=== PATIENT | female | born 1970 | race Caucasian/White ===

== ENCOUNTER 2019-01-01 17:38 | Emergency (ER) | payer MEDICAID, SELFPAY ==
[2019-01-01 17:40] VITALS: BP 152/86; PULSE 115; RESP 17; TEMP 39.1; O2SAT 99; BMI 26.7
--- NOTE | 2019-01-01 18:04 | EKG12_ITS ---
Test Reason : CELLULITIS Blood Pressure : / mmHG Vent. Rate : 105 BPM Atrial Rate : 105 BPM P-R Int : 122 ms QRS Dur : 082 ms QT Int : 320 ms P-R-T Axes : 059 039 024 degrees QTc Int : 422 ms Sinus tachycardia Otherwise normal ECG Confirmed by MUNIR ESCAMILLA, JAILYN ([id number]), art editor AUBREY FLEMING ([id number]) on 01/05/2019 11:14:56 AM Referred By: CJ Confirmed By:JAILYN AMARAL MD
[2019-01-01 18:05] VITALS: O2SAT 98
[2019-01-01] MEDS: Acetaminophen 325 MG Tablet 650 MG PO (18:17)
[2019-01-01] MEDS: 0.9% Normal Saline 1,000 ML 999 ML IV (18:41)
[2019-01-01 18:44] VITALS: BP 128/72; PULSE 103; RESP 14; O2SAT 99
[2019-01-01 18:45] VITALS: BP 128/74; PULSE 103; RESP 14; TEMP 39.9; O2SAT 98
--- NOTE | 2019-01-01 19:11 | ED.VISSUMM ---
- ER Visit Summary Date of Service: 01/01/19 Chief Complaint: Infection History of Present Illness: The patient is a 48 F with a history of IV drug abuse. She reports that she has been clean for years. She complains of right upper arm pain for the last 3 days. It started with a spider bite and she has increasing pain, redness. This is associated with fevers, but she denies any other associated symptoms like chest pain, shortness of breath, GI symptoms, or symptoms. Physical Examination: Febrile at 102 and heart rate 115. Heart tachycardic but regular. No murmurs. Lungs clear. Patient's right proximal and medial upper arm show erythema with proximal induration. The overlying skin is intact. I do not appreciate any definite fluctuance. She has track brower throughout her upper extremities. She is neurovascularly intact distally. Test Results: EKG showed sinus rhythm at a rate of 105. Laboratory studies and cultures are pending. Emergency Department Course and Treatment: I informed the patient that I am concerned she has an abscess. I advised that we will treat her with fluids, Tylenol. We will check some labs. We need to evaluate the arm infection, and we need to evaluate her for sepsis. I advised we will need cultures. I advised that she will likely need admission. We may also need to do imaging to see if there is an abscess or if this is just a cellulitis. Nursing was able to place a peripheral IV, but we were not able to obtain labs. Lab was contacted to draw blood. She received Tylenol and IV fluids. While awaiting blood draw, the patient ripped out her IV. She said she needed to leave. She wanted to go to her methadone clinic over the weekend, and did not want to be admitted despite our recommendations. Patient will sign out AGAINST MEDICAL ADVICE. She was started on clindamycin. Treatment Plan: As above Disposition: AMA Impression: Right arm abscess This note was generated with Med Access dictation software. It may contain incorrect words, spelling, and punctuation that were not noted in review of the chart prior to signing ED Disposition - Plan for ED Patient: Instructions: ABSCESS, Antiobiotic Treatment Only Prescriptions: Clindamycin [Cleocin] 300 mg PO 4X/DAY #80 cap Prescription Printed Referrals: Francisco Rose MD [Primary Care Provider] -
[2019-01-01 19:12] VITALS: BP 129/82; PULSE 102; RESP 14; O2SAT 98
--- NOTE | 2019-01-01 19:28 | ED.RN ---
PT STATED SHE WANTED TO LEAVE. THIS RN AND DR. CORONA EXPLAINED THE RISK OF LEAVING PRIOR TO PROPER TREATMENT. PT CONTINUES STATES SHE WANTS TO LEAVE. AMA PAPER WORK SIGNED MY DR. CORONA, THIS RN, AND THE PT. ESCORTED PT TO THE WAITING ROOM TO HER FAMILY WHO IS TAKING HER HOME.
[2019-01-01 19:32] VITALS: BP 135/87; PULSE 99; RESP 17; O2SAT 100
[2019-01-01 19:35] LABS: Absolute Lymphocyte Count 2.02 X10^3/uL (0.83-4.51); Absolute Neutrophil Count 13.8 X10^3/uL (2.0-7.7); Basophil# 0.12 X10^3/uL; Basophil% 0.7 % (0-1); Eosinophil# 0.04 X10^3/uL; Eosinophils% 0.2 % (0-5); Hemoglobin 12.7 g/dL (12.0-15.0); Lymphocyte # 2.02 X10^3/ul (4.0); Mean Corp Hgb Conc 33.4 g/dL (32-36); Mean Corpuscular Hgb 28.4 pg (27.0-32.0); Mean Platelet Vol. 9.3 fl (6.2-12.0); Monocyte# 0.83 X10^3/uL; Monocyte% 4.9 % (0-10); NRBC Flagged by Analyzer 0 % (0-5); Neutrophil # 13.77 X10^3/uL (2.7-7.7); Neutrophil % 81.5 % (47-70); Platelet Count 226 K/mm3 (150-450); RBC Distribution Width CV 12.5 % (11.6-14.6); RBC Distribution Width SD 38.3 fl (35.1-43.9); Red Blood Count 4.47 M/mm3 (4.2-5.4); White Blood Count 16.9 K/mm3 (4.4-11.0)
[2019-01-01 19:43] LABS: International Normalized Ratio 1.1; Prothrombin Time (Protime)PT. 13.5 SECONDS (11.7-14.9)
[2019-01-01 19:44] LABS: Partial Thromboplast Time 42.6 Seconds (24.1-36.2)
[2019-01-01 20:01] LABS: ALB/GLOB Ratio 0.9 RATIO (0.9-2.4); AST(SGOT) 18 U/L (15-37); Alanine Aminotransfer ALT/SGPT 28 U/L (13-56); Albumin, Serum 3.1 g/dL (3.2-5.0); Alkaline Phosphatase 201 U/L (45-117); Anion Gap 7 (5-15); BUN 12 mg/dL (7-18); Calcium,Total 8.1 mg/dL (8.5-10.1); Chloride 100 mmol/L (98-107); Creatinine, Serum 0.71 mg/dL (0.55-1.02); EST Glomerular Filtration Rate 94 mL/min (>60); Est Glom Filt Rate - Afr Amer 114 mL/min (>60); Estimated Creatinine Clearance 96.28 ml/min; Globulin 3.5 g/dL (2.2-4.2); Glucose 107 mg/dL (74-106); Potassium 3.9 mmol/L (3.5-5.1); Protein, Total 6.6 g/dL (6.4-8.2); Sodium Level 134 mmol/L (136-145)
== END 2019-01-01 19:33 | disposition left against medical advice (07) ==
PROVIDERS: Emergency Provider Emergency Medicine; Family Provider Family Medicine; PCP Family Medicine
DX: L02.413 Cutaneous abscess of right upper limb (principal); F17.200 Nicotine dependence, unspecified, uncomplicated; Z53.29 Procedure and treatment not carried out because of patient's decision for other reasons
CPT/HCPCS: 36415; 80053; 83605; 85025; 85610; 85730; 87040; 93005; 96360; 99285; J7030; A4216

== ENCOUNTER 2019-01-04 12:46 | Emergency (ER) | payer MEDICAID, SELFPAY ==
[2019-01-04 12:47] VITALS: BP 131/65; PULSE 97; RESP 16; TEMP 36.6; O2SAT 98; BMI 29.0
--- NOTE | 2019-01-04 13:40 | ED.RN ---
Medic student went to start patient's iv. Patient asked to speak to the nurse. This RN went to speak with patient. Patient informed me that she talked with her family and she wanted to go over to [place] to try to get into that hospital. Patient left AMA prior to treatment at 1332. This RN notified Dr. Ang.
--- NOTE | 2019-01-04 13:47 | ED.DCSUM_ITS ---
History of Present Illness Chief Complaint: Abscess Informant: Patient Current Severity: Moderate Maximum Severity: Moderate Narrative: Patient presents with right arm infection she was recently seen and she signed out AGAINST MEDICAL ADVICE. Before I got a chance to evaluate her or ask her question she told me she wanted to be noted on the chart that her infection was not from injecting herself with IV drugs. She thinks is from an axilla abscess. She denies chest pain palpitations fever or chills she denies any cough or congestion. She denies vision changes or headache. Past Medical History - Allergies and Home Meds Allergies/Adverse Reactions: Allergies Penicillins [PCN] Allergy (Verified 01/04/19 12:46) Unknown Primary Care Physician: Francisco Rose MD [Primary Care Provider] - Past Medical History: - - History of IV drug abuse, apparently she is on methadone in a methadone clinic Smoking Status: Current every day smoker Review of Systems General: Denies: Fever Eyes: Denies: Visual changes - bilaterally Cardiovascular: Denies: Chest pain, Palpitations, Heart racing Respiratory: Denies: Dyspnea, Cough Genitourinary: Denies: Dysuria Musculoskeletal: Reports: Extremity Pain Skin: Reports: Rash, Wounds Neurological: Denies: Weakness, Parasthesia Hematologic: Denies: Easy bruising, Easy bleeding Allergy: Denies: Uticaria, Swelling of the mouth Physical Exam Vital Signs/Narrative: Vital Signs Temp Pulse Resp BP Pulse Ox 01/04/19 12:47 97.8 F 97 16 131/65 H 98 General: - - She appears in some distress but she does not appear toxic Head: Normocephalic Eyes: Perrl, - - Corneas clear conjunctiva not pale ENT: Moist mucous membranes, No rhinorrhea Neck: Supple Cardiovascular: Regular rate, Regular rhythm, No murmurs, - - I auscultated for quite some time and all points of the auscultations and could not hear any murmur. Respiratory: No distress, CTA bilaterally Abdomen: Soft, Nontender Back: Nontender, Normal Inspection. Negative for: CVA tenderness Extremities: - - Right upper extremity shows a dorsal wrist wound which she does admit is secondary to skin popping. She has significant soft tissue swelling and cellulitis over the upper extremity, she has redness, its beefy red and she has a bit of calor. Examining her axilla she does have 2 lymph nodes, however these are not abscesses and there is no cellulitis rounding these lymph nodes. I do not palpate crepitus. Skin: - - As above Psychological: Normal affect Diagnostic/Tx/Re-eval - Medical Decision Making I ordered IV antibiotics blood cultures sed rate my worry was for systemic infection, endocarditis and significant upper extremity infection. She did tell me that she needs methadone and I need to figure out if this hospital does methadone. I had asked the nurse to figure that out, however the nurse told me that the patient had eloped. I did not have a chance to explain to her or to answer any of her questions I did emphasize when I first met her that this is very serious and she could lose her arm where she could become septic or she could have a heart infection. She did seem to understand that however she did not stick around for me to sign her out against AMA or try to explain to her further or convince her how serious her problem really is and how life- threatening or limb threatening her condition is. She eloped prior to me being able to reason with her. Disposition is elope ED Disposition - Plan for ED Patient: Diagnosis: Cellulitis, Eloped from emergency department Referrals: Francisco Rose MD [Primary Care Provider] -
== END 2019-01-04 13:32 | disposition left against medical advice (07) ==
LOC: ED 13:24
PROVIDERS: Emergency Provider Emergency Medicine; Family Provider Family Medicine; PCP Family Medicine
DX: L03.113 Cellulitis of right upper limb (principal); F17.200 Nicotine dependence, unspecified, uncomplicated; Z53.29 Procedure and treatment not carried out because of patient's decision for other reasons
CPT/HCPCS: 99282; J7050

== ENCOUNTER 2021-08-29 15:30 | Outpatient (RCR) | payer MEDICAID, SELFPAY ==
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
== END 2021-08-29 19:00 | disposition home or self-care (01) ==
LOC: OT 15:30
PROVIDERS: PCP Family Medicine; Referring Provider Family Medicine; Visit Provider Family Medicine
DX: T07.XXXD Unspecified multiple injuries, subsequent encounter (principal); X58.XXXD Exposure to other specified factors, subsequent encounter
CPT/HCPCS: 97110; 97116; 97162; 97165; 97530

== ENCOUNTER 2021-09-05 08:50 | Emergency (ER) | payer MEDICAID, SELFPAY ==
[2021-09-05 08:51] VITALS: BP 139/88; PULSE 87; RESP 14; TEMP 36.4; O2SAT 94; BMI 30.7
--- NOTE | 2021-09-05 09:14 | RAD_ITS ---
STUDY: X-RAY - RIGHT TIBIA AND FIBULA REASON FOR EXAM: Female, 51 years old. Pain TECHNIQUE: 4 view(s) of the tibia and fibula were obtained. COMPARISON: None. FINDINGS: The patient is status post intramedullary susanna fixation of the distal tibial fracture. Healed fracture of the mid fibula. Prior ORIF of the tibial plateau fractures. Soft tissue swelling. RAD/Tibia & Fibula 2 Views IMPRESSION: Status post intramedullary susanna fixation of the distal tibial fracture as well as prior ORIF of the tibial plateau fractures. Diffuse soft tissue swelling. Electronically Signed: Ousmane Austin MD at 10:45 EDT ,
--- NOTE | 2021-09-05 09:14 | VDLE_ITS ---
Reason For Study: pain RIGHT LEFT GSV is normal. GSV is normal. CFV is compressible, spontaneous, phasic, CFV is compressible, spontaneous, phasic, competent and demonstrates normal competent, and demonstrates normal augmentation. augmentation. FV is compressible, spontaneous, phasic, FV is compressible, spontaneous, phasic, competent and demonstrates normal competent and demonstrates normal augmentation. augmentation. POP V is compressible, spontaneous, phasic, POP V is compressible, spontaneous, phasic, competent and demonstrates normal competent and demonstrates normal augmentation. augmentation. T/P Trunk is compressible. T/P Trunk is compressible. PTV is compressible. PTV is compressible. RT PerV is compressible. LT PerV is compressible. Procedure This is a venous duplex using B-mode, color flow and spectral Doppler. Exam performed portable in ED. The exam was diagnostic. A preliminary report was called and/or faxed to Dr. Rivera. VL/Venous Duplex US - Alex Extrem Interpretation Summary No evidence for acute deep venous thrombosis bilateral lower extremities with p atent and compressible bilateral great saphenous veins. Ordering Physician: Raz Rivera Performed By: Chavo Vazquez RVT
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
[2021-09-05 09:53] LABS: Absolute Lymphocyte Count 5.49 X10^3/uL (0.83-4.51); Absolute Neutrophil Count 12.4 X10^3/uL (2.0-7.7); Basophil# 0.09 X10^3/uL; Basophil% 0.4 % (0-1); Eosinophil# 0.06 X10^3/uL; Eosinophils% 0.3 % (0-5); Hematocrit 37.1 % (37-47); Hemoglobin 11.5 g/dL (12.0-15.0); Lymphocyte # 5.49 X10^3/ul (0.83-4.51); Lymphocyte % 27.2 % (19-41); Mean Corpuscular Volume 80.7 fL (81-99); Mean Platelet Vol. 10.8 fl (6.2-12.0); Monocyte% 9.9 % (0-10); NRBC Flagged by Analyzer 0 % (0-5); Neutrophil % 61.4 % (47-70); POSITIVE DIFFERENTIAL YES; Platelet Count 582 K/mm3 (150-450); RBC Distribution Width CV 18.4 % (11.6-14.6); White Blood Count 20.2 K/mm3 (4.4-11.0)
[2021-09-05 10:07] LABS: Differential Indicated SCAN CRITERIA MET
[2021-09-05] MEDS: Ondansetron 4 MG/2 ML Vial IV (10:09)
[2021-09-05] MEDS: HYDROmorphone 1 MG/ML Syringe IV (10:10)
[2021-09-05 10:21] LABS: Differential Comment SCANNED
[2021-09-05 10:25] LABS: Anion Gap 5 (5-15); BUN 12 mg/dL (7-18); BUN/Creat Ratio 18.7 RATIO (10-20); Calcium,Total 8.8 mg/dL (8.5-10.1); Chloride 104 mmol/L (98-107); Creatinine, Serum 0.64 mg/dL (0.55-1.02); EST Glomerular Filtration Rate 104 mL/min (>60); Est Glom Filt Rate - Afr Amer 126 mL/min (>60); Estimated Creatinine Clearance 99.54 ml/min; Glucose 96 mg/dL (74-106); Potassium 3.5 mmol/L (3.5-5.1); Sodium Level 138 mmol/L (136-145)
[2021-09-05 12:01] LABS: Mucous, Urine 0 SEEN /hpf (<or=2+)
[2021-09-05 12:02] LABS: Color, Urine Yellow (Yellow); Glucose, Dipstick Normal (Normal); Ketone-Dipstick Negative (Negative); Leukocyte Esterase-Dipstick 500 /ul (Negative); Nitrite-Dipstick Negative (Negative); Occult Blood-Urine 10 /ul (Negative); Protein-Dipstick Negative (Negative); Specific Gravity, Urine 1.015 (1.002-1.030); Urine Bilirubin Dipstick Negative (Negative); Urine Clarity Sl. Cloudy (Clear); Urine Urobilinogen Normal (Normal)
[2021-09-05 12:09] LABS: Bacteria 1+ /hpf (None Seen); Red Blood Cells-Urine 0-5 SEEN /hpf (0-5); Squamous Epithelial Cells - UA 0-5 SEEN /hpf (5-10); White Blood Cells 25-50 SEEN /hpf (0-5); Yeast-Urine 1+ /hpf (None Seen)
[2021-09-05] MEDS: Smz/Tmp Ds Tablet 1 TABLET PO (12:48)
[2021-09-06 12:13] LABS: Pathologist Review Reviewed
== END 2021-09-05 12:52 | disposition home or self-care (01) ==
PROVIDERS: Emergency Provider Emergency Medicine; PCP Family Medicine; Visit Provider Emergency Medicine
DX: M79.604 Pain in right leg (principal); N39.0 Urinary tract infection, site not specified; F17.210 Nicotine dependence, cigarettes, uncomplicated
CPT/HCPCS: 73590; 80048; 81001; 85025; 86140; 87077; 87086; 87088; 87186; 93970; 96374; 96375; 99284; A4216; J2405

== ENCOUNTER → 2022-10-30 | Outpatient (CLI) | payer MEDICAID, SELFPAY ==
--- NOTE | 2022-10-30 15:16 | CT_ITS ---
STUDY: CT LEFT HIP WITHOUT CONTRAST REASON FOR EXAM: Female, 52 years old. Pain. RADIATION DOSAGE (If Supplied By Facility): CTDIvol = ( 23.82 ) mGy, DLP = ( 779.07 ) mGycm TECHNIQUE: Transaxial CT imaging of the femur was performed. Coronal and sagittal reconstruction and bone and soft tissue algorithm images were provided for interpretation. Metallic artifact from the acetabular plate and screw fixation with reconstruction. Individualized dose optimization techniques were used for this CT. COMPARISON: Pelvis and left hip images dated May 13, 2022. FINDINGS: Osteopenia. Mild muscle atrophy. Patient is status post resection of the proximal femur to the intertrochanteric region. 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 Plate and screw fixation/acetabular reconstruction with long cancellus screw placement from the left ilium to the left symphysis pubis. Anatomic alignment of the left acetabulum. Incidentally noted is mild arthrosis of the left sacroiliac joint. CT/Extremity Lower without Contra IMPRESSION: Osteopenia with left acetabular reconstruction. Resection of the proximal femur to the intertrochanteric region with superior migration of the femur in relation to the acetabulum. Arthrosis of the left sacroiliac joint. No acute abnormality or erosive changes. Electronically Signed: Asad Turner MD at 15:55 EDT ,
--- NOTE | 2022-10-30 15:34 | MRI_ITS ---
EXAM: MR LEFT LOWER EXTREMITY WITHOUT INTRAVENOUS CONTRAST, HIP CLINICAL INDICATION: LT HIP, OSTEOMECROSIS DUE TO PREV TRAUMA LEFT FEMUR TECHNIQUE: Multiplanar and multisequence MR images of the left hip without intravenous contrast. COMPARISON: No relevant prior studies available. FINDINGS: TENDONS: FLEXORS: Unremarkable. Intact. EXTENSORS/HAMSTRING: Unremarkable. Intact. ABDUCTORS: Unremarkable. Intact. ADDUCTORS: Unremarkable. Intact. ROTATORS: Unremarkable. Intact. MUSCLES: Unremarkable. Normal bulk and signal. FLUID: Right hip shows no significant joint effusion. No trochanteric bursitis. LABRUM: Not well seen on the left side. Imaging of the right hip joint including cartilage and labrum are unremarkable. CARTILAGE: Not well seen on the left. Imaging of the right hip joint including cartilage and labrum are unremarkable. BONES/JOINTS: Extensive susceptibility artifact about the left hip, limiting assessment of the adjacent tissues. Synovial herniation pit at the peripheral aspect of the right femoral neck. No sacral insufficiency fracture. No recent fractures. No osteonecrosis involving the right hip. No other bone marrow signal alterations. OTHER SOFT TISSUES: Unremarkable. LYMPH NODES: Right groin prominent lymph nodes could potentially reactive. These can be followed clinically. INTRAPERITONEAL SPACE: Bladder is incompletely distended and otherwise unremarkable. No free fluid seen in the pelvis. MRI/Lower Ext Joint Only (Routine) IMPRESSION: 1. Extensive susceptibility artifact about the left hip, limiting assessment of the adjacent tissues. 2. Synovial herniation pit at the peripheral aspect of the right femoral neck. 3. Right groin prominent lymph nodes could potentially reactive. These can be followed clinically. 4. No other significant internal derangement of the right hip. Electronically Signed: Nuno Stanley MD at 1:02 EDT ,
== END | disposition home or self-care (01) ==
PROVIDERS: PCP Family Medicine; Referring Provider Specialist; Visit Provider Specialist
DX: M87.252 Osteonecrosis due to previous trauma, left femur (principal)
CPT/HCPCS: 73700; 73721

== ENCOUNTER 2022-11-28 13:02 | Outpatient (RCR) | payer MEDICAID, SELFPAY ==
[2022-11-28 13:13] VITALS: BP 151/89; PULSE 83; RESP 16; TEMP 36.8; BMI 32.1
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
== END 2022-12-17 23:59 | disposition home or self-care (01) ==
LOC: WC 13:02
PROVIDERS: PCP Family Medicine; Referring Provider Specialist; Visit Provider Physician Assistant
DX: L97.812 Non-pressure chronic ulcer of other part of right lower leg with fat layer exposed (principal); Z79.899 Other long term (current) drug therapy; F17.210 Nicotine dependence, cigarettes, uncomplicated; Z87.81 Personal history of (healed) traumatic fracture
CPT/HCPCS: 11042; 87070; 87075; 87077; 87186; 87205; 99213; G0463

== ENCOUNTER 2024-04-25 15:01 | Emergency (ER) | payer MEDICAID, SELFPAY ==
[2024-04-25 15:03] VITALS: BP 155/66; PULSE 86; RESP 14; TEMP 37.1; O2SAT 100; BMI 34.8
--- NOTE | 2024-04-25 15:24 | RAD_ITS ---
PROCEDURE: FEMUR MIN 2 VIEWS REASON FOR EXAM: 54-year-old female, pain/wound, possible infection. TECHNIQUE: 4 view(s) of the left femur COMPARISON: None. FINDINGS: Prior surgical femoral head resection with plate and screw fixation of the left hip. Scattered surgical clips along the left lateral hip tissues. Large gaseous lucency overlying the surgical clips measuring approximately 15.1 cm in craniocaudal diameter. No acute osseous fracture. No suspicious bone lesion. Severe arthrosis of the left knee joint. Scattered surgical clips overlying the left knee. RAD/Femur Min 2 Views IMPRESSION: Large gaseous lucency along the left lateral hip, compatible with abscess. Amairani gical consultation is recommended. Reading Location: [id number]
--- NOTE | 2024-04-25 15:24 | RAD_ITS ---
PROCEDURE: TIBIA FIBULA 2 VIEWS REASON FOR EXAM: 54-year-old female, pain, concern for infection. Nonambulatory patient. TECHNIQUE: 3 view(s) of the right tibia and fibula COMPARISON: Prior right tibia/fibula radiographs 08/2021. FINDINGS: Interval susanna and screw fixation of the distal right femur and proximal tibia, and surgical hardware removal of the prior right tibial ORIF. There is minimal osseous bridging of the known distal tibial fracture since 08/2021. Large soft tissue mass overlying the chronic right distal tibial anterior fracture, measuring at least 9.5 cm with gaseous lucency along the cranial aspect. No new acute osseous fracture. Patchy and diffuse serpiginous sclerosis within the proximal and distal tibia, compatible with chronic bone infarction. Numerous surgical clips throughout the right upper medial and right lower lateral leg. RAD/Tibia & Fibula 2 Views IMPRESSION: Large soft tissue mass overlying the chronic right distal anterior tibial fract ure with gaseous lucency along the cranial aspect, compatible with developing infection/abscess. Surgical consultation jagruti beltran Reading Location: [id number]
[2024-04-25 15:32] VITALS: BP 155/66; PULSE 86; RESP 14; TEMP 37.1; O2SAT 100
[2024-04-25 15:41] LABS: Absolute Neutrophil Count 8.8 X10^3/uL (2.0-7.7); Basophil# 0.09 X10^3/uL; Basophil% 0.6 % (0-1); Eosinophil# 0.34 X10^3/uL; Eosinophils% 2.3 % (0-5); Hematocrit 31.4 % (37-47); Hemoglobin 9.3 g/dL (12.0-15.0); Lymphocyte % 27.9 % (19-41); Mean Corp Hgb Conc 29.6 g/dL (32-36); Mean Corpuscular Hgb 24.3 pg (27.0-32.0); Monocyte# 1.31 X10^3/uL; Monocyte% 8.9 % (0-10); NRBC Flagged by Analyzer 0.4 % (0-5); Neutrophil # 8.78 X10^3/uL (2.7-7.7); Neutrophil % 59.6 % (47-70); POSITIVE COUNT YES; RBC Distribution Width CV 17.7 % (11.6-14.6); RBC Distribution Width SD 52.3 fl (35.1-43.9); Red Blood Count 3.83 M/mm3 (4.2-5.4); White Blood Count 14.7 K/mm3 (4.4-11.0)
--- NOTE | 2024-04-25 15:43 | EDS_ITS ---
HPI History of Present Illness Chief Complaint: Wound Informant: patient and EMS Narrative Narrative: 54-year-old female had plastic surgery at [facility] 2 or 3 weeks ago with a skin graft on her right lower leg that was taken from her left thigh for a wound that would not heal. She is supposed to follow-up tomorrow on Friday, and she states she has no transportation which is the main reason that she decided to come here to this ER by EMS on Friday. She states that since she was discharged home from the hospital, she has not been able to bend her knee at all. She states she assumes they knew that when they sent her home, but she could bend it before she went to the hospital to have surgery. She was at home by herself, she states she has an autistic 22-year-old who helps her sometimes, and she has had no home nursing or home health care. However she has been having a hard time performing ADLs at home since she cannot get around in a wheelchair since she cannot bend her right knee. When asked if they offered her rehab she states no not that she knows of. She had a wound VAC on the wound of her left thigh which was open before she left the hospital, she is not sure if it was post to be that way or not, but the wound VAC stopped functioning correctly at least a week ago so she has basically left it off, and she has brought herself to no medical attention for any of this until today. Additionally since she cannot bend her knee and sit in her wheelchair she has been laying on checks a lot, and her right buttock has been hurting her and seeping. She denies any fevers, chills, systemic symptoms. She has a lot of numbness around her right knee and other areas of her right lower leg, she states that hurts some, but she does not have any numbness in her feet. She states her plastic surgeon was Dr. Mac. [facility] Home Medications ?Medication ?Instructions ?Recorded ?Last Taken ?Type gabapentin 600 mg tablet 600 mg PO TID 01/04/19 Unkno wn History methadone 10 mg/mL oral concentrate 90 mg PO DAILY Unknown History sertraline 100 mg tablet 150 mg PO DAILY 01/04/19 Unk nown History clonidine HCl 0.1 mg tablet 0.1 mg PO Q12H 05/13/22 Un known History famotidine 20 mg tablet 20 mg PO DAILY 05/13/22 Unkn own History levothyroxine 50 mcg tablet 50 mcg PO DAILY 05/13/22 U nknown History bupropion HCl 100 mg tablet 150 mg PO BID 11/28/22 Unk nown History clonazepam 0.5 mg tablet (Klonopin) 0.5 mg PO TID PRN anxiety 11/28/22 Unknown History levetiracetam PO BID 11/28/22 Unknown Hist ory mirtazapine 15 mg tablet (Remeron) 7.5 mg PO QHS 11/28 Unknown History promethazine 25 mg tablet 25 mg PO TID PRN nausea and 11/28/22 Unknown History vomiting sulfamethoxazole 800 1 tab PO Q12H 14 days #28 ta bs 11/28/22 Unknown Rx mg-trimethoprim 160 mg tablet (Bactrim DS) Allergy/AdvReac Type Severity Reaction Status Date / Time Penicillins (PCN) Allergy Unknown Verified 04/25/24 15:03 Surgical History (Updated 05/13/22 @ 15:[address] Nicolas Ramírez DO) History of hip surgery History of facial surgery Surgical History unable to obtain Social History household members: family Smoking Status: Current every day smoker tobacco type: cigarettes alcohol intake: never ROS ROS ED Constitutional Constitutional ED: Denies chills or fever(s) Eyes Eyes: Denies change in vision or diplopia ENT ENT ED: Denies rhinorrhea or sore throat Cardiovascular Cardiovascular: Denies chest pain or palpitations Respiratory/Chest Respiratory/Chest: Denies cough or dyspnea Gastrointestinal Gastrointestinal: Denies abdominal pain, diarrhea, nausea or vomiting Genitourinary Genitourinary ED: Denies dysuria or hematuria Musculoskeletal Musculoskeletal: Reports as per HPI, difficulty walking, extremity pain and other Details: Right buttock pain, no other back pain ; Denies neck pain Integumentary Reports wounds; Denies abscess Neurologic Neurologic: Reports paresthesias RLE (In the knee and lower leg but not distally in the foot); Denies headache(s) or weakness Psychiatric Psychiatric: Denies anxiety or suicidal thoughts EXAM Physical Exam Const Vital Signs: 04/25/24 15:03 04/25/24 15:32 04/25/24 16:46 Temperature 98.7 F 98.7 F Temperature Source Oral Oral Pulse Rate 86 86 84 Respiratory Rate 14 14 16 Blood Pressure 155/66 H 155/66 H Blood Pressure Mean 95 95 Pulse Ox 100 100 99 Oxygen Delivery Method Room Air Room Air 04/25/24 16:46 Temperature 98.4 F Temperature Source Oral Pulse Rate 84 Respiratory Rate 16 Blood Pressure 152/85 H Blood Pressure Mean 107 Pulse Ox 100 Oxygen Delivery Method Positive well nourished and well developed General Appearance ED: well developed and NAD HEENT Reports moist mucous membranes normocephalic and atraumatic Eyes PERRL and EOMs intact bilaterally Neck full ROM and supple Resp normal respiratory effort and clear to auscultation bilaterally Cardio regular rate, regular rhythm and no murmurs Rate: Negative for tachycardic GI non-tender and non-distended Auscultation: normoactive bowel sounds Palpation: soft Narrative: Perineum is without any necrosis or subcutaneous emphysema, but she has some superficial skin sloughing and erythema that is tender and moist throughout the right buttock and posterior thigh, it is less significant and less tender on the left posterior thigh. There is no abscess posteriorly. Back/Spine no CVA tenderness General Back: other FROM Extremity normal to inspection Extremity Narrative: Some mild tenderness around the erythema of the wound left proximal lateral thigh. Large open wound here, there are sutures intact surgically and many of them appear to have ruptured creating an open wound that is approximately 12 cm long. I see no necrotic tissue in it. On her right leg, she has a black large swollen graft/flap on her right morgan with some purulent discharge coming out around the medial proximal aspect of it. She states it does not really hurt to press on the graft but it is sort of insensate. There is only mild tenderness around it proximally and there is a lot of erythema that goes from the distal aspect of this all the way up past the knee. Anterior at the knee, there is swelling, chronically thickened tissue, and a deep cutaneous sulcus without discharge. She cannot move her knee although she is trying and flexing the quads. It is in full extension. She can feel light touch distally in her feet. The skin is thickened and not able to feel pulses but her cap refill is brisk 2- 3 seconds. General Extremety ED: Yes tenderness; Negative for edema or pulses abnormal General Extremity: Negative for edema or pulses abnormal Neuro oriented x3, CN's II-XII intact bilaterally and no sensory deficits noted Sensorium / Orientation: awake and alert Motor Exam: strength 5/5 throughout Skin no wounds Skin Narrative: Wounds of both lower extremities and erythema, blanching, no other rashes, see above MDM MDM MDM Narrative Medical decision making narrative: Patient appears to have cellulitis in her right posterior thigh and buttock, a possible infection of her flap, erythema that extends proximally, and a possible infection of her open dehisced left thigh donor site as well. I obtained labs, the only secretions that I can obviously get a culture of his of the right lower leg flap, so we sent a culture of that and gave her a dose of vancomycin. Labs are noted which include a leukocytosis, kidney function and electrolytes are normal, her blood sugar is 127 which is good. I obtained x-rays of the affected areas, and my interpretation is as follows: The left thigh 4 view series shows that she had acetabulum surgery and her femoral head appears to be surgically gone, creating a chronic nonworking joint, and there is a paucity of tissue laterally that radiology read has compatible with an abscess but the location of this lucency is consistent with the open wound that is open to the outside world, rather than an abscess. Right femur 4 views and right tibia-fibula 3 views show an intramedullary susanna that goes through the knee joint and is secured in the proximal tibia. Also there appears to be a chronic fracture of the tibia where the patient's flap is, and as the radiologist noted, the soft tissue mass with subcutaneous air is the flap. There is not air tracking in fascial planes to suggest necrotizing fasciitis. Awaiting physician from transfer center to accept the patient in transfer given the fact that she just had surgery and they know this patient's wounds to some degree. Discussed with orthopedics Dr. Aguilar, who advised that given the multispecialty nature of her case, she will probably need Ortho, plastics, medicine, and infectious disease to see her, he recommends sending to the emergency department so I spoke with Dr. Patel there who accepts the patient. She is stable to go by BLS ground. Lab Data Attestation: I reviewed the patient's lab results. Labs: Laboratory Results - last 24 hr 04/25/24 15:20 WBC 14.7 H RBC 3.83 L Hgb 9.3 L Hct 31.4 L MCV 82.0 MCH 24.3 L MCHC 29.6 L RDW Std Deviation 52.3 H RDW Coeff of Mckayla 17.7 H Plt Count 759 H* MPV 10.0 Immature Gran % (Auto) 0.700 Neut % (Auto) 59.6 Lymph % (Auto) 27.9 [place] % (Auto) 8.9 Eos % (Auto) 2.3 Baso % (Auto) 0.6 Absolute Neuts (auto) 8.8 H Absolute Lymphs (auto) 4.10 Nucleated RBC % 0.4 Differential Comment SCANNED Diff Path Review June foll Sodium 138 Potassium 4.0 Chloride 102 Carbon Dioxide 25.7 Anion Gap 11 BUN 9 Creatinine 0.78 Estim Creat Clear Calc 99.51 Est GFR (MDRD) Non-Af 92 BUN/Creatinine Ratio 11.9 Glucose 127 H Calcium 9.0 Radiography Diagnostic Testing: Clinical Impression(s) from Imaging Studies Femur X-Ray 04/25/24 15:24 IMPRESSION: Large gaseous lucency along the left lateral hip, compatible with abscess. Surgical consultation is recommended. Reading Location: [facility] Tibia/Fibula X-Ray 04/25/24 15:24 IMPRESSION: Large soft tissue mass overlying the chronic right distal anterior tibial fracture with gaseous lucency along the cranial aspect, compatible with developing infection/abscess. Surgical consultation recommended. Reading Location: [facility] Femur X-Ray 04/25/24 15:51 IMPRESSION: No obvious soft tissue lesion. 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 Prescriptions: No Action levothyroxine 50 mcg tablet 50 mcg PO DAILY clonidine HCl 0.1 mg tablet 0.1 mg PO Q12H famotidine 20 mg tablet 20 mg PO DAILY gabapentin 600 MG tablet 600 mg PO TID Patient Comments: PT TAKES 1-3X DAILY sertraline 100 MG tablet 150 mg PO DAILY methadone 10 MG/ML concentrate 90 mg PO DAILY bupropion HCl 100 mg tablet 150 mg PO BID levetiracetam [Keppra] PO BID promethazine 25 mg tablet 25 mg PO TID PRN (Reason: nausea and vomiting) clonazepam [Klonopin] 0.5 mg tablet 0.5 mg PO TID PRN (Reason: anxiety) mirtazapine [Remeron] 15 mg tablet 7.5 mg PO QHS sulfamethoxazole-trimethoprim [Bactrim DS] 800-160 mg tablet 1 tab PO Q12H 14 Days Qty: 28 0RF Primary Care Provider: Francisco Rose Referrals: Francisco Rose MD [Primary Care Provider] - Print Language: Kyrgyz Disposition Disposition: Acute Care Hospital Discharge Location: [facility]
--- NOTE | 2024-04-25 15:51 | RAD_ITS ---
PROCEDURE: FEMUR MIN 2 VIEWS REASON FOR EXAM: 54-year-old female, leg wounds. TECHNIQUE: 4 view(s) of the right femur COMPARISON: Right tibia/fibula radiographs 08/2021. FINDINGS: Interval susanna and screw fixation of the right femur, extending into the proximal tibia. No obvious acute fracture. No suspicious bone lesion. Normal alignment at the hip. Surgical fixation of the right knee joint with expected sclerosis and demineralization. No obvious soft tissue lesion. RAD/Femur Min 2 Views IMPRESSION: No obvious soft tissue lesion. Reading Location: [id number]
[2024-04-25 15:58] LABS: Differential Indicated SCAN CRITERIA MET; Platelet Count 759 K/mm3 (150-450)
[2024-04-25 16:03] LABS: Anion Gap 11 (5-15); BUN 9 mg/dL (4-19); BUN/Creat Ratio 11.9 RATIO (10-20); Carbon Dioxide 25.7 mmol/L (21.0-32.0); Chloride 102 mmol/L (98-108); Creatinine, Serum 0.78 mg/dL (0.70-1.20); EST Glomerular Filtration Rate 92 (>60); Estimated Creatinine Clearance 99.51 ml/min (50-250); Glucose 127 mg/dL (70-99); Sodium Level 138 mmol/L (133-145)
[2024-04-25 16:40] LABS: Differential Comment SCANNED; Pathologist Review May foll
[2024-04-25 16:46] VITALS: BP 152/85; PULSE 84; RESP 16; TEMP 36.9; O2SAT 100; O2SAT 99
[2024-04-25] MEDS: Vancomycin HCl 1,500 MG in 0.9% Normal Saline (500mL Bag) 500 ML 250 MG IV (16:48)
[2024-04-25 18:00] VITALS: BP 152/85; PULSE 69; RESP 17; TEMP 36.7; O2SAT 98
--- NOTE | 2024-04-25 18:41 | ED.RN ---
attempt to call report left on hold for 15 minutes. will attempt to call again
--- NOTE | 2024-04-25 20:12 | ED.RN ---
attempt to call charge nurse again. no answer. will try again
== END 2024-04-25 20:19 | disposition short-term general hospital (02) ==
PROVIDERS: Emergency Provider Emergency Medicine; PCP Family Medicine; Visit Provider Emergency Medicine
DX: T81.49XA Infection following a procedure, other surgical site, initial encounter (principal); L03.115 Cellulitis of right lower limb; F17.210 Nicotine dependence, cigarettes, uncomplicated; X58.XXXA Exposure to other specified factors, initial encounter
CPT/HCPCS: 73552; 73590; 80048; 85025; 87070; 87077; 87186; 87205; 96365; 96366; 99285; A4216

== ENCOUNTER 2024-08-08 20:08 | Inpatient (IN) | payer MEDICAID, SELFPAY ==
[2024-08-08] VITALS (12 sets, daily range): BP systolic 157–172; BP diastolic 79–96; PULSE 79–94; RESP 11–23; TEMP 36.7–37; O2SAT 92–100; BMI 29.7
--- NOTE | 2024-08-08 20:36 | EKG12_ITS ---
Test Reason : GEN ILL Blood Pressure : */* mmHG Vent. Rate : 87 BPM Atrial Rate : 87 BPM P-R Int : 144 ms QRS Dur : 86 ms QT Int : 392 ms P-R-T Axes : 63 47 48 degrees QTcB Int : 471 ms Normal sinus rhythm Normal ECG Confirmed by MUNIR ESCAMILLA, JAILYN ([id number]), features editor EDISON SHOEMAKER ([id number]) on 08/10/2024 6:47:05 AM Referred By: Confirmed By: JAILYN AMARAL MD
--- NOTE | 2024-08-08 20:37 | EX.ED.DYSGE1 ---
HPI History of Present Illness Chief Complaint: General Illness Informant: EMS Narrative Narrative: Brought in by EMS from home. Apparently report of the call at the home for lift assist possibly by an aunt per nursing. She lives with a 22-year-old autistic son who helps her. She had a previous right AKA, apparently had a skin graft to her left upper leg few months back. They reported they went to the home she was found in her own feces and urine. She was confused trying to turn off the TV with [employer]'s application. Patient denies any pain denies any cough. She knew her name place and reported the year was 2025. Blood glucose 126 per EMS. Poor historian could not tell me how long she was in bed. PFSH PFS Home Medications ?Medication ?Instructions ?Recorded ?Last Taken ?Type gabapentin 600 mg tablet 600 mg PO TID 01/04/19 Unknown History methadone 10 mg/mL oral concentrate 90 mg PO DAILY 01/04/19 Unknown History sertraline 100 mg tablet 150 mg PO DAILY 01/04/19 Unknown History clonidine HCl 0.1 mg tablet 0.1 mg PO Q12H bp 05/13/22 Unknown History famotidine 20 mg tablet 20 mg PO DAILY gerd 05/13/22 Unknown History levothyroxine 50 mcg tablet 50 mcg PO DAILY 05/13/22 Unknown History bupropion HCl 100 mg tablet 150 mg PO BID 11/28/22 Unknown History clonazepam 0.5 mg tablet (Klonopin) 0.5 mg PO TID PRN anxiety 11/28/22 Unknown History levetiracetam PO BID 11/28/22 Unknown History mirtazapine 15 mg tablet (Remeron) 7.5 mg PO QHS 11/28/22 Unknown History promethazine 25 mg tablet 25 mg PO TID PRN nausea and 11/28/22 Unknown History vomiting sulfamethoxazole 800 1 tab PO Q12H 14 days #28 tabs 11/28/22 Unknown Rx mg-trimethoprim 160 mg tablet (Bactrim DS) Allergy/AdvReac Type Severity Reaction Status Date / Time Penicillins (PCN) Allergy Unknown Verified 08/08/24 20:09 Surgical History History of hip surgery History of facial surgery Social History household members: family Smoking Status: Current every day smoker tobacco type: cigarettes alcohol intake: never ROS ROS ED Review of Systems ROS Unobtainable: due to mental status Constitutional Constitutional ED: Denies fever(s) Cardiovascular Cardiovascular: Denies chest pain Respiratory/Chest Respiratory/Chest: Denies cough Gastrointestinal Gastrointestinal: Denies diarrhea or vomiting Neurologic Neurologic: Reports weakness EXAM Physical Exam Const Vital Signs: 08/08/24 20:08 08/08/24 20:09 08/08/24 21:12 Temperature 98.6 F Temperature Source Temporal Pulse Rate 94 Respiratory Rate 18 Blood Pressure 157/88 H 166/86 H Blood Pressure Mean 111 112 Pulse Ox 99 Oxygen Delivery Method Room Air Room Air 08/08/24 21:15 08/08/24 21:22 08/08/24 21:30 Temperature 98.4 F Temperature Source Oral Pulse Rate 90 87 94 Respiratory Rate 18 21 H 23 H Blood Pressure 166/79 H Blood Pressure Mean 108 Pulse Ox 97 93 92 Oxygen Delivery Method Room Air 08/08/24 21:35 08/08/24 21:45 08/08/24 21:46 Temperature Temperature Source Pulse Rate 82 90 Respiratory Rate 23 H 12 Blood Pressure 166/96 H 172/93 H Blood Pressure Mean 116 117 Pulse Ox 97 100 Oxygen Delivery Method 08/08/24 22:00 08/08/24 22:00 08/08/24 22:15 Temperature 98.1 F Temperature Source Oral Pulse Rate 79 83 81 Respiratory Rate 17 14 11 L Blood Pressure 172/93 H Blood Pressure Mean 119 Pulse Ox 97 99 95 Oxygen Delivery Method Room Air 08/08/24 22:26 08/08/24 23:00 Temperature 98.3 F 98.1 F Temperature Source Oral Pulse Rate 80 80 Respiratory Rate 14 18 Blood Pressure 166/87 H 164/90 H Blood Pressure Mean 113 114 Pulse Ox 100 99 Oxygen Delivery Method Positive unkempt Constitutional Narrative: Urine odor. General Appearance ED: unkempt HEENT HEENT Narrative: Mild dry mucosal membranes. normocephalic and atraumatic Eyes General Eye ED: Yes normal appearance of both eyes Neck full ROM Resp normal respiratory effort and normal air movement Cardio regular rate and regular rhythm GI soft to palpation Extremity Extremity Narrative: Right leg: AKA stump with incisions with scabbing. No redness no drainage. Left lower leg: Previous skin that left upper thigh superficial skin wound anterior thigh with pink color. No exudative drainage. Neuro Neuro Narrative: Alert to person and place reported years 2025. Psych Appearance: unkempt Skin Skin Narrative: See above MDM MDM MDM Narrative Medical decision making narrative: Interventions / MDM: Differential diagnosis: UTI, encephalopathy, transaminitis, leukocytosis. Rhabdomyolysis Diagnosis considered but do not suspect: Pneumonia however chest x-ray negative. My EKG interpretation: Sinus rate of 87, no ST changes. T wave versions in V1 V2. QTc 471. New changes compared to EKG 2019. Imaging independently reviewed and interpreted by myself: 1 view chest x-ray: No acute process. CT brain: No acute process. CT abdomen pelvis IV contrast: Pending External documents reviewed: N/A Test considered but not ordered:N/A ED course:. Altered smell of urine. Afebrile heart rate 90s respirate 18. Blood pressure 157/88. She appears altered. Will start with sepsis labs including CPK IV fluids ordered. Labs white count 17 hemoglobin 13.5. Creatinine 0.72. Lactic acid 1.2. Slight transaminitis with AST and ALT at 56 and 43 respectively. Normal bilirubin. Urine had 25 leukocytes with 1+ bacteria. Urine culture sent. With her leukocytosis IV Rocephin was ordered. Alcohol negative. Toxicology presumptive methadone. Phenocyclidine and benzodiazepine. With patient slightly more altered not baseline and I discussed with hospitalist Dr. Parra for admission. With patient being poor historian, he would like a CT abdomen pelvis IV contrast ordered. Re-evaluation: stable Disposition discussed with patient/family/significant other: Patient Case discussed with consulting clinician: Hospitalist CPK slightly elevated. This note was generated with [employer] dictation software. It may contain incorrect words, spelling, and punctuation that were not noted in checking the note before signing. Lab Data Attestation: I reviewed the patient's lab results. Labs: Laboratory Results - last 24 hr 08/08/24 08/08/24 20:38 21:41 WBC 17.0 H RBC 5.44 H Hgb 13.5 Hct 42.4 MCV 77.9 L MCH 24.8 L MCHC 31.8 L RDW Std Deviation 62.5 H RDW Coeff of Mckayla 23.1 H Plt Count 502 H MPV 11.6 Immature Gran % (Auto) 0.700 Neut % (Auto) 71.1 H Lymph % (Auto) 21.8 [place] % (Auto) 5.8 Eos % (Auto) 0.1 Baso % (Auto) 0.5 Absolute Neuts (auto) 12.1 H Absolute Lymphs (auto) 3.72 Nucleated RBC % 0 Differential Comment SCANNED Platelet Estimate MOD INC Polychromasia 1+ Hypochromasia 1+ Anisocytosis 1+ PT 13.9 INR 1.1 APTT 31.1 Sodium 139 Potassium 4.1 Chloride 103 Carbon Dioxide 21.5 Anion Gap 15 BUN 11 Creatinine 0.72 Estim Creat Clear Calc 89.29 Est GFR (MDRD) Non-Af 101 BUN/Creatinine Ratio 14.8 Glucose 115 H Lactic Acid 1.2 Calcium 9.9 Total Bilirubin 0.63 AST 56 H ALT 43 H Alkaline Phosphatase 174 H Total Creatine Kinase 226 H Total Protein 8.2 Albumin 4.3 Globulin 3.9 Albumin/Globulin Ratio 1.1 Urine Color Yellow Urine Clarity Sl. Cloudy Urine pH 6.0 Ur Specific [place] 1.025 Urine Protein 30 H Urine Glucose (UA) Normal Urine Ketones 15 H Urine Occult Blood 10 H Urine Nitrite Negative Urine Bilirubin 1 H Urine Urobilinogen 1 H Ur Leukocyte Esterase 25 H Urine RBC 0-5 SEEN Urine WBC 0-5 SEEN Ur Squamous Epith Cells 0-5 SEEN Amorphous Sediment 3+ Urine Bacteria 1+ Urine Mucus 0 SEEN Urine Opiates Screen NEGATIVE U Buprenorphine Qual NEGATIVE Ur Oxycodone Screen NEGATIVE Urine Methadone Screen PRESUMPTIVE POSITIVE Urine Fentanyl Screen NEGATIVE Ur Barbiturates Screen NEGATIVE Ur Phencyclidine Scrn PRESUMPTIVE POSITIVE Ur Amphetamines Screen NEGATIVE U Benzodiazepines Scrn PRESUMPTIVE POSITIVE Urine Cocaine Screen NEGATIVE U Cannabinoids Screen NEGATIVE Ethyl Alcohol < 10.1 Radiography Diagnostic Testing: Clinical Impression(s) from Imaging Studies Brain CT 08/08/24 20:41 IMPRESSION: No acute intracranial process. Reading Location: [facility] Chest X-Ray 08/08/24 21:43 IMPRESSION: No focal consolidations. Reading Location: [facility] Abdomen/Pelvis CT 08/08/24 22:34 IMPRESSION: Mild thickening of the colonic wall may reflect colitis. Moderate stool burden which may reflect constipation. No bowel obstruction. Vascular congestion within the pelvis may reflect pelvic congestion syndrome. Postsurgical changes of the left hip. Reading Location: [id number] Discharge Plan Dx/Rx/DC Orders Clinical Impression: UTI (urinary tract infection), Leukocytosis, Transaminitis, Elevated CPK, Encephalopathy Disposition Disposition: Acute Care Hospital [facility] Discharge Date/Time: 08/09/24 00:03
--- NOTE | 2024-08-08 20:41 | CT_ITS ---
PROCEDURE: BRAIN/HEAD WITHOUT CONTRAST 08/08/2024 REASON FOR EXAM: ALTERED MENTAL STATUS TECHNIQUE: BRAIN/HEAD WITHOUT CONTRAST Coronal and Sagittal reconstruction series were provided. One or more dose reduction techniques were used (e.g., Automated exposure control, adjustment of the mA and/or kV according to patient size, use of iterative reconstruction technique. RADIATION DOSE SUMMARY: DLP: 813 mGycm COMPARISON: None FINDINGS: There is no acute infarct, intracranial hemorrhage, or mass effect. There is no hydrocephalus or significant midline shift. There is mild chronic microvascular ischemic changes. Mild parenchymal volume loss. No acute, depressed calvarial fractures. No large scalp hematomas. Multiple facial bone fixation plates are noted. CT/Brain/Head without Contrast IMPRESSION: No acute intracranial process. Reading Location: [id number]
--- OUTSIDE RECORDS SUMMARY | 2024-08-08 20:49 | XMS RPT_ITS | CCD ---
Author Organization [facility] Care Team Providers Care Endoscopy Technician Name Role Phone Unavailable Primary Care Provider UnavailBijan Figueroa Primary Care Provider PROVIDER, UNKNOWN Admitting Unavailable PROVIDER, UNKNOWN Attending Unavailable ADALBERTO MCQUEEN Primary Care Unavailable PROVIDER, UNKNOWN Admitting Unavailable PROVIDER, UNKNOWN Attending Unavailable RENE LUNDBERG Referring Unavailable ADALBERTO MCQUEEN Primary Care Unavailable Bijan Elmore Primary Care Provider Unavailable Primary Care Provider UnavailBijan Figueroa MD Primary Care Provider Dr. Francisco Elmore Primary Care Provider Dr. Andre Sinclair Attending Provider Bijan Elmore MD Primary Care Provider Bijan Elmore Primary Care Provider Bijan Elmore MD Primary Care Provider JOSE, ELSIE R Attending Unavailable PROVIDER, UNKNOWN Referring Unavailable Bijan Elmore Primary Care Unavailable Ga Rodrigez Attending Unavailable PROVIDER, UNKNOWN Referring Unavailable Bijan Elmore Primary Care Unavailable Jyoti Ni Attending Unavailable PROVIDER, UNKNOWN Referring Unavailable Bijan Elmore Primary Care Unavailable PROVIDER, UNKNOWN Referring Unavailable Bijan Elmore Primary Care Unavailable Shelby Marti Attending Unavailable PROVIDER, UNKNOWN Referring Unavailable Bijan Elmore Primary Care Unavailable Adalberto Mcqueen Attending Unavailable Adalberto Mcqueen Attending Unavailable PROVIDER, UNKNOWN Referring Unavailable Bijan Elmore Primary Care Unavailable PROVIDER, UNKNOWN Referring Unavailable Bijan Elmore Primary Care Unavailable Dwayne Hameed Attending Unavailable CASS GUZMAN Attending Unavailable Bijan Elmore Referring Unavailable Kontak, Bijan Primary Care Unavailable Kontak, Bijan Primary Care Unavailable Jose, Elsie Attending Unavailable Kontak, Bijan Referring Unavailable Kontak, Bijan Primary Care Unavailable CASS GUZMAN Attending Unavailable Kontak, Bijan Referring Unavailable JEANIEFRANCISCO Attending Unavailable Kontak, Bijan Referring Unavailable Kontak, Bijan Primary Care Unavailable CASSY LANGLEY Attending Unavailable Kontak, Bijan Referring Unavailable Kontak, Bijan Primary Care Unavailable Jose, Elsie Attending Unavailable Kontak, Bijan Primary Care Unavailable Kontak, Bijan Referring Unavailable RICHARDSONTUNMACK Attending Unavailable KONTAK, FRANCISCO R Referring Unavailable KONTAK, FRANCISCO R Primary Care Unavailable MACK NEW Attending Unavailable KONTAK, FRANCISCO R Referring Unavailable KONTAK, FRANCISCO R Primary Care Unavailable Bijan Elmore MD Primary Care Provider [phone] JARVIS ALMONTE Attending Unavailable CRISTIANEK, BIJAN Primary Care Unavailable CASS GUZMAN Attending Unavailable KERLINETAK, BIJAN Primary Care Unavailable FRANCISCO WARE Attending Unavailable PACHECO BOOTHE Attending Unavailable CASS GUZMAN Attending Unavailable DAMIAN MOYA Referring Unavailable KONTAK, BIJAN Primary Care Unavailable PACHECO BOOTHE Attending Unavailable KERLINETAK, BIJAN Primary Care Unavailable JARVIS ALMONTE Attending Unavailable JEANIE, FRANCISCO Referring Unavailable Kontak, Bijan R Primary Care Provider [phone] Joselo MONTANEZ, Alicia Unavailable Unavailable Dr. Francisco Elmore Primary Care Provider HARMAN Munoz Attending Provider HARMAN Munoz Other Provider Dr. Abhi Quan Referring Provider Bijna Elmore MD Primary Care Provider [phone] Unavailable Primary Care Provider Unavailabl e Generic Provider , No Assigned Pcp Primary Car e Provider Unavailable Generic Provider , No Assigned Pcp Primary Car e Provider Unavailable CATARINA, BIJAN R Referring Unavailable KERLINETAZbigniew, BIJAN R Primary Care Unavailable CRUZ GOODMAN Attending Unavailable CRUZ GOODMAN Referring Unavailable CRUZ GOODMAN Referring Unavailable SONTICH, CRUZ Coy Referring Unavailable GENERIC PROVIDER, NO ASSIGNED PCP Primary Care Unavailable SONTICH, CRUZ K Referring Unavailable GENERIC PROVIDER, NO ASSIGNED PCP Primary Care Unavailable SONTICH, CRUZ K Referring Unavailable GENERIC PROVIDER, NO ASSIGNED PCP Primary Care Unavailable Catarina ESCAMILLA, Bijan Darnell Primary Care Provider [phone] Van ENGINE WATCHMAN.HAND PLUG SHAPER, Cheryl Unavailable TALBOO-LISSA PA~[id number], TALBOO-LISSA DI SUMA Attending Unavailable TALBOO-LISSA PA~[id number], TALBOO-LISSA DI SUMA Admitting Unavailable BIJAN ELMORE Primary Care Unavailable Catarina ESCAMILLA, Bijan Darnell Primary Care Provider Catarina ESCAMILLA, Dr. Singh Primary Care Provider Carolyn ESCAMILLA, Dr. Perla Emergency Provider CRUZ GOODMAN Attending Unavailable GENERIC PROVIDER, NO ASSIGNED PCP Primary Care Unavailable CRUZ GOODMAN Referring Unavailable GENERIC PROVIDER, NO ASSIGNED PCP Primary Care Unavailable CRUZ GOODMAN Admitting Unavailable CRUZ GOODMAN Attending Unavailable BIJAN ELMORE Primary Care Unavailable HERBER ABERNATHY Consulting Unavailable CRUZ GOODMAN Attending Unavailable GENERIC PROVIDER, NO ASSIGNED PCP Primary Care Unavailable GENERIC PROVIDER, NO ASSIGNED PCP Primary Care Unavailable GENERIC PROVIDER, NO ASSIGNED PCP Primary Care Unavailable CRUZ GOODMAN Referring Unavailable BIJAN ELMORE Primary Care Unavailable CRUZ GOODMAN Admitting Unavailable CRUZ GOODMAN Attending Unavailable BIJAN ELMORE Primary Care Unavailable CRUZ GOODMAN Admitting Unavailable SONCRUZ RUEDA Attending Unavailable CRUZ GOODMAN Referring Unavailable BIJAN ELMORE Primary Care Unavailable AL LIANET, NIDAL Consulting Unavailable FILIPPO MARK Attending Unavailable BIJAN ELMORE Primary Care Unavailable ALDEN, COMFORT R Admitting Unavailable PAN ABARCA Referring Unavailable BIJAN ELMORE Primary Care Unavailable AL DEEK, NIDAL Admitting Unavailable NADIA HORVATH Consulting Unavailab le CRUZ GOODMAN Attending Unavailable CRUZ GOODMAN Attending Unavailable BIJAN ELMORE Primary Care Unavailable Yulia Munoz Attending Unavailable Kontak, Francisco Primary Care Unavailable Francisco Elmore Referring Unavailable [facility] Doctor, Out of Attending Unavailable Francisco Elmore Primary Care Unavailable Francisco Elmore Primary Care Unavailable Pan Abarca Attending Unavailable PERCY RYAN MD Attending Unavailable PERCY RYAN MD Primary Care Unavailable PERCY RYAN MD Admitting Unavailable SELF Referring Unavailable BIJAN ELMORE Attending Unavailable BIJAN ELMORE Primary Care Unavailable DI JANG Attending Unavail able BIJAN ELMORE Primary Care Unavailable DI JANG Attending Unavail able BIJAN ELMORE Primary Care Unavailable Allergies Allergy Classification Reported Allergen(s) Allergy Type Date of Onset Reaction(s) Facility (11 sources) Penicillins; Translations: [PENICILLINS] Propensity to adverse reactions to drug 6 [place], [place] (17 sources) Penicillins Drug Allergy 6 Other, Shortness of breath, Unknown [facility] (3 sources) Penicillins Allergy to substance 3 Unknown [facility] (9 sources) Penicillins Drug Allergy 6 Other, Shortness of breath, Unknown [facility] (2 sources) Penicillin; Translations: [PENICILLIN] Drug Allergy 6 [facility] Repository (1 source) ALLERGIES NOT ON FILE; Translations: [ALLERGIES NOT ON FILE] Propensity to adverse reactions (disorder) [facility] 1 Repository (1 source) Penicillins Drug Allergy 6 Other, Shortness of breath, Unknown [facility] (1 source) Penicillins Drug allergy (disorder) 5 [facility] Repository Medications Current Medications Medication Drug Class(es) Dates Sig (Normalized) Sig (Original) acetaminophen 325 mg oral tablet (20 sources) Start: 04-26-2024 End: 05-20-2024 take 1 tablet by mouth every eight hours Start: 03-26-2024 End: 04-04-2024 975 mg (rounded from 1,000 m g), oral, Every 8 hours scheduled, First dose on Fri03/26/24 at 0000, For 28 doses, If ordered PRN for pain, nurse is permitted to administer this medication for higher pain scores based on patient preference? Yes Start: 03-25-2024 End: 03-25-2024 take 975 mg by mouth once as needed for pain 975 mg, oral, Once, On Lexie 03/25/24 at 0745, For 1 dose, Preprocedure, If ordered PRN for pain, nurse is permitted to administer this medication for higher pain scores based on patient preference? Yes Start: 03-12-2024 End: 03-12-2024 1,000 mg, intravenous, Once, On Fri03/12/24 at 1245, For 1 dose Start: 03-11-2024 take 1 tablet by ananth th every eight hours 975 mg, oral, Every 8 hours, First dose on Lexie 03/11/24 at 2000, If ordered PRN for pain, nurse is permitted to administer this medication for higher pain scores based on patient preference? Yes Start: 01-12-2024 End: 02-11-2024 take 2 tablets by mouth every six hours in the evening for pain acetaminophen (Tylenol) 325 mg tablet Indications: Tibia and fibula open fracture, right, sequela Take 2 tablets (650 mg) by mouth every 6 hours if needed for mild pain (1 - 3). 120 tablet 01/14/2024 2:33 PM EST 01/12/2024 02/11/2024 Active Start: 01-11-2024 975 mg (rounde d from 1,000 mg), oral, Every 8 hours, First dose (after last modification) on 01/11/24 at 1400, Phase II/On Unit, If ordered PRN for pain, nurse is permitted to administer this medication for higher pain scores based on patient preference? Yes Start: 01-09-2024 End: 01-11-2024 take 650 mg by mouth every six hours as needed for pain 650 mg, oral, Every 6 hours scheduled, First dose on 01/09/24 at 1430, Phase II/On Unit, If ordered PRN for pain, nurse is permitted to administer this medication for higher pain scores based on patient preference? Yes Start: 11-27-2022 End: 08-29-2023 take 2 tablets by mouth every six hours as needed acetaminophen (TYLENOL EXTRA STRENGTH) 500 mg tablet Take 2 tablets by mouth every 6 hours as needed for pain. 240 tablet 5 08/29/2023 Active Start: 04-21-2021 acetaminophen (TYLENOL) tablet 650 mg Start: 04-18-2021 End: 04-21-2021 take 1 dose by mouth three times daily 1,000 mg, Oral, EVERY 8 HOURS SCHEDULED (3 times per day), First dose on Fri04/18/21 at 0600 Maximum dose of acetaminophen is 4000 mg from all sources in 24 hours. Start: 04-18-2021 acetaminophen (TYLENOL) tablet 650 mg Start: 02-14-2021 End: 05-12-2024 take 2 tablets by mouth every eight hours acetaminophen (Tylenol) 500 mg tablet Indications: Chronic multifocal osteomyelitis of right tibia (Multi) Take 2 tablets (1,000 mg) by mouth every 8 hours for 11 doses. 22 tablet 03/31/2024 04/04/2024 Active Start: 12-25-2020 take 1000 mg by mout h every eight hours, then take 4000 mg by mouth every twenty-four hours 1,000 mg, Oral, EVERY 8 HOURS, First dose on Fri12/25/20 at 1000 Maximum dose of acetaminophen is 4000 mg from all sources in 24 hours. Start: 12-19-2020 End: 12-25-2020 1,000 mg, IntraVENous, at 40 0 mL/hr, Administer over 15 Minutes, EVERY 8 HOURS, First dose on Fri12/19/20 at 1330 Start: 01-05-2019 take 1 dose by mouth three times daily 1,000 mg, Oral, EVERY 8 HOURS SCHEDULED (3 times per day), First dose on Fri01/05/19 at 2200 Maximum dose of acetaminophen is 4000 mg from all sources in 24 hours. Comment on above: Take 2 tablets by mo [facility] every 6 hours as needed for pain. albuterol 0.833 mg/ml / ipratropium bromide 0.167 mg/ml inhalation solution (1 source) Anticholinergic, beta2-Adrenergic Agonist Start: 12-19-2020 1 ampule, Inhalation, EVERY 4 HOURS WHILE AWAKE, First dose on Fri12/19/20 at 1600 alteplase (Cathflo Activase) injection 2 mg (2 sources) Start: 03-15-2024 2 mg, intra-catheter, As needed, line care, Starting on Fri03/15/24 at 0554, Via PICC Line Removed by: Aspiration Inject into partial/totally occluded catheter lumen for total of 30 to 120 minute dwell time; assess patency at 30 minutes and if not patent, dwell for additional 90 minutes. If still not patent, repeat alteplase 2 mg injected into thrombotic partial or totally occluded lumen for a total of 120 minute dwell time; assess patency at 30 minutes and if not patent, dwell for 90 minutes. If still not patent, notify provider. Dilute each 2 mg vial with 2.2 mL sterile water to give 1 mg/mL final concentration. Swirl gently to mix; do not shake. Start: 01-11-2024 2 mg, intra-ca theter, As needed, line care, Starting on 01/11/24 at 1023, Via PICC Line Removed by: Aspiration Inject into partial/totally occluded catheter lumen for total of 30 to 120 minute dwell time; assess patency at 30 minutes and if not patent, dwell for additional 90 minutes. If still not patent, repeat alteplase 2 mg injected into thrombotic partial or totally occluded lumen for a total of 120 minute dwell time; assess patency at 30 minutes and if not patent, dwell for 90 minutes. If still not patent, notify provider. Dilute each 2 mg vial with 2.2 mL sterile water to give 1 mg/mL final concentration. Swirl gently to mix; do not shake. amLODIPine 5 mg oral tablet (20 sources) Dihydropyridine Calcium Channel John Start: 12-21-2020 End: 12-29-2020 10 mg, Per G Tube, DAILY, First dose on Lexie 12/21/20 at 1300 Start: 04-22-2020 End: 01-08-2024 amLODIPine (NORVASC) 5 mg ta blet amlodipine 5 mg tablet 04/22/2020 Active Comment on above: Take 5 mg by mouth o nce daily. amlodipine 5 mg tabl et apixaban 5 mg oral tablet (3 sources) Factor Xa Inhibitor Start: 05-12-2024 End: 06-11-2024 Start: 05-11-2024 End: 05-18-2024 bacitracin zinc 0.5 unt/mg topical ointment (20 sources) Start: 04-18-2021 apply 1 dose topical ly twice daily Topical, 2 times daily, First dose on Fri04/18/21 at 0900 Apply to skin Start: 04-12-2021 bacitracin 500 UNIT/GM ointment Apply topically 2 times daily. 1 each 0 04/12/2021 Active Start: 01-26-2021 End: 09-26-2022 bacitracin zinc 500 unit/gra m ointment Apply topically 2 times daily. 0 01/26/2021 09/26/2022 Discontinued Start: 12-25-2020 apply 1 dose topical ly twice daily Topical, 2 TIMES DAILY, First dose on 12/25/20 at 2100 Apply to all incisions and abrasions. Comment on above: Apply topically 2 ti mes daily. baclofen 20 mg oral tablet (20 sources) gamma-Aminobutyric Acid-ergic Agonist Start: 07-06-2024 take 1 tablet by mouth three times daily baclofen 20 mg tablet Take 1 tablet by mouth three times a day. 90 tablet 2 07/06/2024 Active Start: 03-25-2024 End: 03-30-2024 take 20 mg by mouth three times daily as needed for muscle spasms 20 mg, oral, 3 times daily PRN, muscle spasms, Starting on [facility] 03/25/24 at 2335 Start: 12-12-2021 End: 06-16-2024 take 1 tablet by mouth three times daily baclofen 20 mg tablet Take 1 tablet by mouth three times a day. 90 tablet 2 06/16/2024 Active Start: 09-18-2021 End: 12-12-2021 take 1 tablet by mouth three times daily baclofen (LIORESAL) 5 mg tablet Take 1 tablet by mouth three times daily. Along with 10 mg tablet. 90 tablet 2 09/18/2021 12/12/2021 Discontinued Start: 09-17-2021 End: 09-18-2021 take 3 tablets by mouth three times daily baclofen (LIORESAL) 5 mg tablet Take 3 tablets by mouth three times daily. 270 tablet 2 09/17/2021 09/18/2021 Discontinued Start: 07-13-2021 End: 09-18-2021 take 1 tablet by mouth twice daily baclofen (LIORESAL) 20 mg tablet Take 1 tablet by mouth twice daily. 60 tablet 2 07/13/2021 09/18/2021 Discontinued Start: 06-27-2021 End: 12-12-2021 take 1 tablet by mouth three times daily baclofen (Lioresal) 10 MG tablet baclofen 10 mg tablet take 1 tablet by mouth three times a day if needed muscle spasm take ALONG WITH 5MG TABLET 0 06/27/2021 Active Start: 06-27-2021 End: 07-27-2021 take 1 tablet by mouth twice daily baclofen (LIORESAL) 10 MG tablet take 1 tablet by mouth twice a day if needed 0 06/27/2021 Active Comment on above: Take 1 tablet by ananth twice daily as needed. Take 1 tablet by ananth th twice daily. Take 3 tablets by mo [facility] three times daily. Take 1 tablet by ananth th three times daily as needed (muscle spasms). Along with 5 mg tablet. Take 1 tablet by ananth th three times daily. Along with 10 mg tablet. Take 1 tablet by ananth th three times daily. benzocaine 15 mg / menthol 3.6 mg oral lozenge (1 source) Standardized Chemical Allergen Start: 5 bifidobacterium infantis 4 mg oral capsule (2 sources) Start: 2 End: 2 take 1 capsule by mouth once daily at breakfast 1 capsule, Oral, DAILY WITH BREAKFAST, First dose on Fri04/18/21 at 0800 bisacodyl 10 mg rectal suppository (9 sources) Stimulant Laxative Start: 5 take 10 mg rectal route every twenty-four hours as needed Start: 03-30-2024 End: 03-30-2024 take 10 mg rectal route once 10 mg, rectal, Once, On T ue 03/30/24 at 0045, For 1 dose Start: 03-11-2024 take 10 mg rectal ro chilkoot every twenty-four hours as needed Start: 03-11-2024 take 1 tablet by ananth every twenty-four hours as needed Start: 01-09-2024 take 10 mg rectal ro chilkoot every twenty-four hours as needed Start: 12-28-2020 End: 12-28-2020 take 10 mg rectal route once 10 mg, Rectal, ONCE, On T hu 12/28/20 at 2100, For 1 dose Start: 12-23-2020 End: 12-27-2020 take 10 mg rectal route once daily 10 mg, Rectal, DAILY, First dose on [facility] 12/23/20 at 0900 Start: 12-21-2020 End: 12-21-2020 take 10 mg rectal route once daily 10 mg, Rectal, DAILY, First dose on Lexie 12/21/20 at 0945, For 1 dose bismuth subsalicylate 262 mg chewable tablet (5 sources) Bismuth Start: 03-18-2024 take 524 mg by mouth four times daily before mealtime 524 mg, oral, 4 times daily before meals and nightly, First dose on Lexie 03/18/24 at 0800 Start: 04-12-2021 take 30 mL by mouth every six hours as needed for diarrhea bismuth subsalicylate (PEPTO BISMOL) 262 MG/15ML suspension Take 30 mLs by mouth every 6 hours as needed for Indigestion or Diarrhea 1 each 0 04/12/2021 Active 12 hr buPROPion hydrochloride 150 mg extended release oral tablet (20 sources) Aminoketone Start: 07-06-2024 take 1 tablet by mouth twice daily buPROPion SR (WELLBUTRIN SR) 150 mg 12 hr tablet Indications: Chronic anxiety Take 1 tablet by mouth two times a day. 180 tablet 07/06/2024 Active Start: 11-03-2023 Start: 04-22-2023 End: 03-29-2024 take 1 tablet by mouth twice daily buPROPion SR (WELLBUTRIN SR) 150 mg 12 hr tablet Indications: Chronic anxiety take 1 tablet by mouth twice a day 60 tablet 2 03/29/2024 Active Start: 11-28-2022 Bupropion Hcl 100 mg tablet Active 150 mg PO TWICE A DAY November 28, 2022 12:00am Start: 11-28-2022 take 150 mg by mouth twice daily Bupropion Hcl Active 150 MG PO TWICE A DAY November 28, 2022 12:00am Start: 11-13-2022 End: 03-25-2023 take 1 tablet by mouth twice daily buPROPion SR (WELLBUTRIN SR) 150 mg 12 hr tablet Indications: Chronic anxiety Take 1 tablet by mouth two times a day. 60 tablet 0 03/26/2023 Active Start: 01-04-2019 End: 10-22-2022 take 1 tablet by mouth twice daily Bupropion Hcl 150 MG tablet sustained-release 12 hr Discontinued 150 mg PO TWICE A DAY January 04, 2019 1:00am May 13, 2022 2:40pm Comment on above: Take 1 tablet by ananth th twice daily. take 1 tablet by ananth twice a day Take 1 tablet by ananth th two times a day. calcium carbonate 1250 mg / cholecalciferol 200 unt oral tablet (3 sources) Vitamin D Start: 01-12-2024 End: 02-25-2024 take 1 tablet by mouth once daily calcium carbonate-vitamin D3 500 mg-5 mcg (200 unit) tablet Indications: Tibia and fibula open fracture, right, sequela Take 1 tablet by mouth once daily. 42 tablet 02/05/2024 11:58 AM EST 01/12/2024 02/25/2024 Active Start: 01-09-2024 take 1 tablet by ananth twice daily 1 tablet, oral, 2 times daily, First dose on Fri01/09/24 at 1430, Phase II/On Unit cefTRIAXone 2000 mg injection (1 source) Cephalosporin Antibacterial Start: 03-29-2024 take 2 g intravenously every twelve hours 2 g, intravenous, at 100 mL/hr, Administer over 30 Minutes, Every 12 hours, First dose on Fri03/29/24 at 1200, premix bag, Suspected Indication (Select all that apply): Cellulitis, Skin and Soft Tissue, Indications: Cellulitis, Skin and Soft Tissue clonazePAM 0.5 mg oral tablet (20 sources) Benzodiazepine Start: 11-11-2023 End: 09-04-2024 take 1 tablet by mouth three times daily clonazePAM (KLONOPIN) 0.5 mg tablet Indications: Chronic anxiety Take 1 tablet by mouth three times a day for 30 days. Patient should start on July 10, 2024. 90 tablet 07/10/2024 08/05/2024 Discontinued Start: 08-21-2021 End: 11-09-2023 take 1 tablet by mouth three times daily clonazePAM (KLONOPIN) 0.5 mg tablet Indications: Chronic anxiety Take 1 tablet by mouth three times a day for 30 days. 90 tablet 10/10/2023 11/07/2023 Discontinued Start: 12-27-2020 End: 05-30-2021 take 1 tablet by mouth twice daily clonazePAM (KLONOPIN) 0.5 MG tablet Indications: Anxiety Take 1 tablet by mouth 2 times daily for 30 days. 60 tablet 3 12/29/2020 Suspended Comment on above: Take 0.5 mg by mouth three times daily. Take 1 tablet by ananth th three times a day for 30 days. Take 1 tablet by ananth th three times a day for 30 days. Do not start before January 25, 2023. cloNIDine hydrochloride 0.1 mg oral tablet (20 sources) Central alpha-2 Adrenergic Agonist Start: take 1 tablet by mouth three times daily cloNIDine HCl (CATAPRES) 0.1 mg tablet Indications: Chronic anxiety , Hypertension, essential Take 1 tablet by mouth three times a day. 270 tablet 07/06/2024 Active Start: 03-03-2023 End: 05-31-2024 take 1 tablet by mouth three times daily cloNIDine HCl (CATAPRES) 0.1 mg tablet Indications: Chronic anxiety , Hypertension, essential Take 1 tablet by mouth three times a day. 90 tablet 5 05/31/2024 Active Start: 05-13-2022 take 1 tablet by ananth th every twelve hours Clonidine Hcl 0.1 mg tablet Active 0.1 mg PO Q12H May 13, 2022 12:00am Start: 07-19-2021 Clonidine Hcl Active 0.1 MG PO May 13, 2022 12:00am Start: 12-29-2020 End: 09-26-2022 take 1 tablet by mouth three times daily cloNIDine HCl (CATAPRES) 0.1 mg tablet Indications: Chronic anxiety , Hypertension, essential Take 1 tablet by mouth three times daily. 90 tablet 11 09/26/2022 Active Start: 12-29-2020 cloNIDine (CAT APRES) 0.1 MG tablet 1 tablet by Per G Tube route 3 times daily 60 tablet 3 12/29/2020 Active Start: 12-28-2020 0.1 mg, Per G Tube, 3 TIMES DAILY, First dose (after last modification) on Lexie 12/28/20 at 0900 Hold for SBP < 110 Start: 12-26-2020 End: 12-28-2020 0.2 mg, Per G Tube, 3 TIMES DAILY, First dose (after last modification) on 12/26/20 at 1400 Hold for SBP < 110 Start: 12-21-2020 End: 12-23-2020 0.2 mg, Per G Tube, 3 TIMES DAILY, First dose on Lexie 12/21/20 at 1000 Hold for SBP < 110 Comment on above: Take 1 tablet by ananth three times daily. Take 0.1 mg by mouth three times daily. take 1 tablet by ananth three times a day Take 1 tablet by ananth three times a day. Diaper,Brief, Adult,Disposable (10 sources) Start: 09-26-2022 End: 10-26-2022 Diaper,Brief, Adult,Disposable Indications: Urinary incontinence, unspecified type , Nocturnal enuresis , Stress incontinence , Functional urinary incontinence 1 Each as needed. 96 Each 2 09/26/2022 10/26/2022 Active Start: 06-26-2022 End: 07-26-2022 Diaper,Brief, Adult,Disposab le Indications: Urinary incontinence, unspecified type 1 Each as needed. 96 Each 2 06/26/2022 07/26/2022 Start: 06-26-2022 End: 07-26-2022 Diaper,Brief, Adult,Disposab le Indications: Urinary incontinence, unspecified type 1 Each as needed. 96 Each 2 06/26/2022 07/26/2022 Active Comment on above: 1 Each as needed. diphenhydrAMINE (1 source) Histamine-1 Receptor Antagonist Start: 01-09-2024 take 12.5 mg intravenously every six hours as needed docusate sodium 100 mg oral capsule (9 sources) Start: 04-26-2024 End: 05-20-2024 Start: 03-26-2024 End: 04-14-2024 take 1 capsule by mouth twice daily docusate sodium (Colace) 100 mg capsule Indications: Constipation, unspecified constipation type Take 1 capsule (100 mg) by mouth 2 times a day for 14 days. 28 capsule 03/31/2024 04/14/2024 Active Start: 01-12-2024 End: 01-29-2024 take 1 capsule by mouth twice daily in the evening docusate sodium (Colace) 100 mg capsule Indications: Tibia and fibula open fracture, right, sequela Take 1 capsule (100 mg) by mouth 2 times a day for 15 days. 30 capsule 01/14/2024 2:33 PM EST 01/12/2024 01/29/2024 Active Start: 12-24-2020 End: 12-27-2020 take 100 mg by mouth twice daily 100 mg, Oral, 2 TIMES DAILY, First dose on Fri12/24/20 at 1130 Start: 12-23-2020 End: 05-12-2024 take 1 capsule by mouth twice daily docusate sodium (COLACE) 100 MG capsule Take 1 capsule by mouth 2 times daily 0 02/14/2021 04/18/2021 Discontinued (LIST CLEANUP) docusate sodium 50 mg / matt osides, chcf 8.6 mg oral tablet (2 sources) Start: 05-05-2024 Start: 01-09-2024 take 2 tablets by [facility] twice daily for constipation 2 tablet, oral, 2 times daily, First dose on Fri01/09/24 at 1430, Phase II/On Unit, Bowel Regimen - for prevention of constipation Hold for loose stools dornase maite 1 mg/ml inhalation solution (1 source) Recombinant Human Deoxyribonuclease 1 Start: 12-26-2020 take 2.5 mg by inhalation once daily 2.5 mg, Inhalation, DAILY, First dose on Fri12/26/20 at 1130 Drug or medicament (substance) (3 sources) Start: 05-12-2024 End: 05-29-2024 Start: 05-10-2024 End: 05-21-2024 Start: 12-18-2020 End: 12-26-2020 take 1.3-20 mL intravenously every hour 12.5-200 mcg/hr (1.25-20 mL/hr, rounded to 1.3-20 mL/hr), IntraVENous, CONTINUOUS, Starting on Fri12/18/20 at 1600, Until Fri12/26/20 at 1055 Titrate to CPOT score less than 2 Dose Range: 12.5 to 200 mcg/hr Initial dose 10 mcg/hr. Max dose: 200 mcg/hr Contact physician if max dose does not achieve desired response If CPOT is greater than goal (indicating pain): increase fentanyl infusion by 25 mcg/hr no faster than every hour If CPOT at goal: continue same rate If CPOT less than 2 and RASS below goal: decrease fentanyl infusion by 25 mcg/hr no faster than every hour If patient fails sedation interruption, resume fentanyl titration at previous rate ergocalciferol 1.25 mg oral capsule (1 source) Provitamin D2 Compound Start: 01-09-2024 take 1250 ug by mouth every week 1,250 mcg, oral, Weekly, First dose on Fri01/09/24 at 1430, Phase II/On Unit famotidine 20 mg oral tablet (20 sources) Histamine-2 Receptor Antagonist Start: 07-06-2024 take 1 tablet by mouth once daily famotidine (PEPCID) 20 mg tablet Indications: Gastroesophageal reflux disease, unspecified whether esophagitis present Take 1 tablet by mouth once daily. 90 tablet 07/06/2024 Active Start: 05-13-2022 End: 03-03-2024 take 1 tablet by mouth once daily famotidine (PEPCID) 20 mg tablet Indications: Gastroesophageal reflux disease, unspecified whether esophagitis present Take 1 tablet by mouth once daily. 30 tablet 03/03/2024 Active Start: 12-27-2020 End: 09-26-2022 take 1 tablet by mouth twice daily famotidine (Pepcid) 20 MG tablet famotidine 20 mg tablet take 1 tablet by mouth twice a day as directed 0 12/29/2020 Active Start: 12-25-2020 End: 12-27-2020 20 mg, IntraVENous, 2 TIMES DAILY, First dose on Fri12/25/20 at 1015 Administer over 2 minutes. Start: 12-18-2020 End: 12-23-2020 20 mg, IntraVENous, 2 TIMES DAILY, First dose on Fri12/18/20 at 2100 Administer over 2 minutes. Comment on above: Take 1 tablet by ananth th twice daily. Take 20 mg by mouth twice daily. take 1 tablet by ananth th twice a day Take 1 tablet by ananth th once daily. Foam Bandage (OPTIFOAM) 4 X 4 bndg (20 sources) Start: 06-26-2022 Foam Bandage (OPTIFOAM) 4 X 4 bndg Indications: Open wound of right knee, sequela Apply to affected area as needed. 30 Each 2 06/26/2022 Active Comment on above: Apply to affected ar ea as needed. gabapentin 600 mg oral tablet (20 sources) Anti-epileptic Agent Start: 07-06-2024 End: 10-04-2024 take 1 tablet by mouth three times daily gabapentin (NEURONTIN) 600 mg tablet Indications: Chronic anxiety Take 1 tablet by mouth three times a day for 90 days. 270 tablet 07/06/2024 10/04/2024 Active Start: 04-27-2024 End: 05-06-2024 Start: 03-26-2024 End: 05-12-2024 Start: 03-25-2024 take 1 capsule by mouth once 3 00 mg, oral, Once, On Lexie 03/25/24 at 0745, For 1 dose, Preprocedure, Capsules may be opened and sprinkled on food (eg, applesauce, orange juice, pudding Start: 03-11-2024 take 1 capsule by mo uth three times daily 300 mg, oral, 3 times daily, First dose on Lexie 03/11/24 at 2100, Capsules may be opened and sprinkled on food (eg, applesauce, orange juice, pudding). Capsules may be opened and sprinkled on food (eg, applesauce, orange juice, pudding Start: 01-10-2024 take 1 capsule by mo uth three times daily 600 mg, oral, 3 times daily, First dose on 01/10/24 at 1115, Capsules may be opened and sprinkled on food (eg, applesauce, orange juice, pudding). Capsules may be opened and sprinkled on food (eg, applesauce, orange juice, pudding Start: 04-18-2021 take 800 mg by mouth three times daily 800 mg, Oral, 3 TIMES DAILY, First dose on Fri04/18/21 at 0900 Start: 04-12-2021 take 2 capsules by m outh three times daily gabapentin (NEURONTIN) 400 MG capsule Take 2 capsules by mouth 3 times daily for 15 days. 90 capsule 0 04/12/2021 Active Start: 12-27-2020 End: 01-28-2021 Start: 01-04-2019 End: 05-12-2024 take 1 tablet by mouth three times daily gabapentin (NEURONTIN) 600 mg tablet Indications: Chronic anxiety Take 1 tablet by mouth three times a day for 90 days. 270 tablet 11/03/2023 Active Comment on above: take 1 tablet by [facility] three times a day Take 1 tablet by [facility] three times daily for 90 days. Take 1 tablet by [facility] three times daily for 30 days. Take 1 tablet by [facility] three times a day for 90 days. 1 ml hydrALAZINE hydrochloride 20 mg/ml injection (2 sources) Arteriolar Vasodilator Start: 12-21-2020 20 mg, IntraVENous, EVERY 6 HOURS PRN, High Blood Pressure, 2nd line for SBP>160. Hold for HR>95., Starting on Fri12/21/20 at 0937 Start: 12-19-2020 End: 12-21-2020 10 mg, IntraVENous, EVERY 4 HOURS PRN, High Blood Pressure, For SBP>160. Hold for HR>95. Second line., Starting on Fri12/19/20 at 2259 0.5 ml HYDROmorphone hydrochloride 1 mg/ml prefilled syringe (14 sources) Opioid Agonist Start: 05-05-2024 take 0.4 mg intraven ously every four hours as needed Start: 05-05-2024 End: 05-05-2024 Start: 04-25-2024 End: 04-25-2024 Start: 03-25-2024 take 0.2 mg intraven ously every four hours as needed 0.2 mg, intravenous, Every 4 hours PRN, pain breakthrough, Starting on Fri03/25/24 at 2335, Phase II/On Unit Start: 03-12-2024 End: 03-12-2024 0.5 mg, intravenous, Every 5 min PRN, pain severe (7-10), first line, Starting on Fri03/12/24 at 1142, Recovery (only), Max total of 4 mg regardless of dose. Start: 03-11-2024 take 0.5 mg intraven ously every four hours as needed 0.5 mg, intravenous, Every 4 hours PRN, pain breakthrough, Starting on Fri03/11/24 at 1904 Start: 01-09-2024 End: 01-09-2024 0.5 mg, intravenous, Every 5 min PRN, pain severe (7-10), first line, Starting on Fri01/09/24 at 1139, Recovery (only), Max total of 4 mg regardless of dose. Start: 01-09-2024 End: 01-09-2024 0.2 mg, intravenous, Every 5 min PRN, pain moderate (4-6), first line, Starting on Fri01/09/24 at 1139, Recovery (only), Max total of 4 mg regardless of dose. Start: 04-19-2021 End: 04-19-2021 HYDROmorphone (DILAUDID) injection 0.5 mg Start: 12-27-2020 End: 12-27-2020 take 1 mg by mouth once 1 mg, IntraVENous, ONCE, On Fri12/27/20 at 0830, For 1 dose If oral and IV narcotics ordered, use oral first and only use IV if oral is ineffective or cannot take oral. Do Not give oral and IV within 1 hour of each other unless specifically ordered. Start: 01-06-2019 End: 01-06-2019 HYDROmorphone (DILAUDID) 1 M G/ML injection Start: 01-05-2019 End: 01-08-2019 HYDROmorphone (DILAUDID) injection 0.5 mg ibuprofen 600 mg oral tablet (20 sources) Nonsteroidal Anti-inflammatory Drug Start: 07-06-2024 take 1 tablet by mouth every eight hours as needed ibuprofen (MOTRIN) 600 mg tablet Take 1 tablet by mouth every 8 hours as needed for pain. 270 tablet 07/06/2024 Active Start: 08-02-2021 End: 05-12-2024 take 1 tablet by mouth every eight hours as needed ibuprofen (MOTRIN) 600 mg tablet Take 1 tablet by mouth every 8 hours as needed for pain. 90 tablet 2 11/18/2023 Active Start: 06-07-2021 take 1 tablet by ananth th three times daily ibuprofen 600 MG tablet ibuprofen 600 mg tablet take 1 tablet by mouth three times a day if needed for 30 DAYS 0 06/07/2021 Active Start: 01-10-2019 ibuprofen (ADV IL;MOTRIN) tablet 400 mg Comment on above: Take 1 tablet by ananth th every 8 hours as needed for pain. labetalol hydrochloride 5 mg/ml injectable solution (2 sources) beta-Adrenergic John Start: 12-21-2020 20 mg, IntraVENous, EVERY 4 HOURS PRN, High Blood Pressure, First line for SBP > 160. Hold for HR < 65, Starting on Lexie 12/21/20 at 0932 Start: 12-19-2020 End: 12-21-2020 10 mg, IntraVENous, EVERY 4 HOURS PRN, High Blood Pressure, For SBP>160. Hold for HR<65. First line., Starting on 12/19/20 at 2259 levETIRAcetam 500 mg oral tablet (20 sources) Start: 07-06-2024 take 1 tablet by mouth twice daily levETIRAcetam (KEPPRA) 500 mg tablet Indications: Seizures (HCC) Take 1 tablet by mouth two times a day. 180 tablet 07/06/2024 Active Start: 03-12-2024 End: 03-12-2024 500 mg, intravenous, at 400 mL/hr, Administer over 15 Minutes, Once, On Fri03/12/24 at 1230, For 1 dose Start: 03-17-2023 End: 03-22-2024 take 1 tablet by mouth twice daily levETIRAcetam (KEPPRA) 500 mg tablet Indications: Seizures (HCC) Take 1 tablet by mouth two times a day. 60 tablet 2 03/22/2024 Active Start: 11-28-2022 levetiracetam Active PO TWICE A DAY November 28, 2022 12:00am Start: 04-22-2020 End: 12-24-2022 take 1 tablet by mouth in the morning levETIRAcetam (Keppra) 500 MG tablet Take 500 mg by mouth in the morning and 500 mg in the evening. 0 02/14/2021 Active Comment on above: Take 500 mg by mouth twice daily. Take 1 tablet by ananth twice daily. take 1 tablet by ananth twice a day Take 1 tablet by [facility] two times a day. levothyroxine sodium 0.075 mg oral tablet (20 sources) l-Thyroxine Start: 12-31-19 take 1 tablet by mouth once daily for thyroid dysfunction levothyroxine (LEVOXYL) 75 mcg tablet Indications: Acquired hypothyroidism Take 1 tablet by mouth once daily. Take on empty stomach. For thyroid. 90 tablet 07/06/2024 Active Start: 06-27-2021 End: 05-16-2024 take 1 tablet by mouth once daily Levothyroxine 50 mcg tablet Active 50 ug PO DAILY May 13, 2022 12:00am Start: 06-26-2021 End: 07-26-2021 take 1 tablet by mouth once daily before breakfast levothyroxine (SYNTHROID) 25 mcg tablet Indications: Hypothyroidism, acquired Take 1 tablet by mouth daily before breakfast. 30 tablet 0 06/26/2021 06/27/2021 Discontinued (Changing Therapy/Dosage Form) Comment on above: Take 1 tablet by ananth th daily before breakfast. Take 25 mcg by mouth daily before breakfast. Take 1 tablet by ananth th once daily. Take on empty stomach. For Thyroid take 1 tablet by ananth th once daily ON AN EMPTY STOMACH lidocaine 0.04 mg/mg medicated patch (20 sources) Antiarrhythmic, Amide Local Anesthetic Start: apply 1 dose transdermal route once daily 1 patch, transdermal, Administer over 12 Hours, Daily, First dose on Fri03/30/24 at 0900, Apply to back. Patch will remain on for 12 hours, then removed for [address] patch directly over any surgical incisions or wounds. Start: 01-10-2024 Start: 08-25-2023 End: 05-12-2024 apply 1 dose transdermal route every twelve hours, then apply 1 dose transdermal route every twelve hours lidocaine (Lidoderm) 5 % patch Indications: Tibial plateau fracture, right, sequela Place 1 patch over 12 hours on the skin once daily. Remove & discard patch within 12 hours or as directed by . 30 patch 1 12/01/2023 12/31/2023 Active Start: 06-06-2023 apply 1 dose transde rmal route every twenty-four hours, then apply 1 dose transdermal route every twelve hours lidocaine (LIDODERM) 5 % Apply 1 Patch as directed every 24 hours. Remove old patch after 12 hours Location: arm 30 Patch 2 06/06/2023 Active Start: 10-10-2021 End: 10-10-2021 lidocaine PF 1 % injection Start: 04-21-2021 lidocaine 4 % external patch Place 2 patches onto the skin daily 30 patch 0 05/01/2021 Active apply 1 dose transde rmal route once daily, then apply 1 dose transdermal route every twelve hours lidocaine (Lidoderm) 5 % patch Place 1 patch on the skin once daily. Remove & discard patch within 12 hours or as directed by . Suspended Comment on above: Apply 1 Patch as dir ected every 24 hours. Remove old patch after 12 hours Location: arm loperamide hydrochloride 2 mg oral capsule (1 source) Opioid Agonist Start: 2 loperamide (IMODIUM) capsule 2 mg magnesium hydroxide 80 mg/ml oral suspension (2 sources) Start: 5 take 30 mL by mouth every twenty-four hours as needed Start: 01-09-2024 take 30 mL by mouth every twen ty-four hours as needed melatonin 3 mg oral tablet (20 sources) Start: 03-27-2024 take 3 mg by mouth once daily as needed for sleep 3 mg, oral, Nightly PRN, sleep, Starting on 03/27/24 at 1737 Start: 04-12-2021 melatonin 5 mg tablet Take 5 mg by mouth. 04/12/2021 Active Comment on above: Take 5 mg by mouth. methadone hydrochloride 2 mg /ml oral solution (20 sources) Opioid Agonist Start: 04-28-2024 Start: 03-12-2024 take 100 mg by mouth every twenty-four hours 100 mg, oral, Every 24 hours, First dose on Fri03/12/24 at 2100 Start: 06-20-2021 End: 04-28-2024 take 5 mL by mouth once daily methadone 5 mg/5 mL solu tion Take 5 mL by mouth once daily. 06/20/2021 Active Start: 06-20-2021 End: 03-12-2024 take 5 mL by mouth once daily methadone 5 mg/5 mL solu tion Take 5 mL by mouth once daily. 06/20/2021 Active Start: 04-18-2021 methadone (DOL OPHINE) 10 MG/ML solution 85 mg Start: 12-20-2020 take 85 mg by mouth once daily 85 mg, Oral, NIGHTLY, First dose on Fri12/20/20 at 2100 Start: 01-05-2019 End: 01-05-2019 methadone (DOLOPHINE) 10 MG/ ML solution 90 mg Start: 01-04-2019 take 10 mg by mouth once daily Methadone 10 MG/ML concentrate Active 90 mg PO DAILY January 04, 2019 1:00am Start: 01-04-2019 take 90 mg by mouth once daily Methadone Active 90 MG PO DAILY January 04, 2019 1:00am take 50 mL by mouth once daily m ethadone (Dolophine) 10 mg/5 mL solution Take 50 mL (100 mg) by mouth once daily. Active take 80 mg by mouth in the morni ng methadone (Dolophine) 10 MG/5ML solution Take 80 mg by mouth in the morning. 0 Active methadone (DOLOP CASSANDRA) 10 MG tablet Take 90 mg by mouth daily. 0 Active Comment on above: Take 5 mL by mouth o nce daily. 2 ml metoclopramide 5 mg/ml injection (2 sources) Dopamine-2 Receptor Antagonist Start: 03-25-19 take 10 mg intravenously every six hours as needed 10 mg, intravenous, Every 6 hours PRN, nausea/vomiting, second line, Starting on Lexie 03/25/24 at 2335, Phase II/On Unit Start: 12-24-2020 End: 12-24-2020 10 mg, IntraVENous, EVERY 6 HOURS, First dose on 12/24/20 at 0130 mineral oil 0.15 mg/mg / petrolatum 0.83 mg/mg ophthalmic ointment (1 source) Start: 12-20-2020 Both Eyes, FINA RY 4 HOURS SCHEDULED (6 times per day), First dose on Fri12/20/20 at 0400 mirtazapine 7.5 mg oral tablet (20 sources) Start: 07-06-2024 take 1 tablet by mouth once daily at bedtime Mirtazapine (REMERON) 7.5 mg tablet Indications: Chronic anxiety Take 1 tablet by mouth daily at bedtime. 90 tablet 07/06/2024 Active Start: 11-28-2022 take 7.5 mg by mouth at bedtim e Mirtazapine (Remeron) 15 mg tablet Active 7.5 mg PO AT BEDTIME November 28, 2022 12:00am Start: 11-05-2021 End: 04-16-2023 take 1 tablet by mouth at bedtime Mirtazapine (REMERON) 7.5 mg tablet Indications: Chronic anxiety take 1 tablet by mouth at bedtime 90 tablet 2 04/16/2023 Active Start: 04-30-2021 End: 11-02-2021 take 1 tablet by mouth at bedtime Mirtazapine (REMERON) 7.5 mg tablet Indications: Chronic anxiety take 1 tablet by mouth at bedtime 90 tablet 0 09/18/2021 11/02/2021 Discontinued Start: 04-22-2021 mirtazapine (R EMERON) tablet 7.5 mg Comment on above: Take 1 tablet by ananth th daily at bedtime. take 1 tablet by ananth th at bedtime 1 ml morphine sulfate 4 mg/ml injection (3 sources) Opioid Agonist Start: 04-18-2021 morphine sulfate (PF) injection 2 mg Start: 01-06-2019 End: 01-06-2019 morphine (PF) injection 2 mg Start: 01-05-2019 End: 01-10-2019 Intravenous, CONTINUOUS, Sta rting 01/05/19 at 1800 TRAP PULLER Dose: 1 mg Lockout Interval: 6 Minutes Basal dose: 0 mg/Hr One Hour limit: 6 mg mupirocin 0.02 mg/mg topical ointment (9 sources) RNA Synthetase Inhibitor Antibacterial Start: 06-12-2021 End: 06-22-2021 mupirocin (BACTROBAN) 2 % ointment Indications: Leg wound, right, initial encounter Apply 1 application to affected area three times daily for 10 days. 22 g 0 06/12/2021 06/22/2021 Active Comment on above: Apply 1 application to affected area three times daily for 10 days. Naloxone (3 sources) Opioid Antagonist Start: 05-05-2024 Start: 03-11-2024 Start: 01-09-2024 Nicotine (1 source) Cholinergic Nicotinic Agonist Start: 01-10-2024 End: 02-21-2024 nicotine (Nicoderm CQ) 14 mg/24 hr patch 1 patch nystatin 100 unt/mg topical powder (2 sources) Polyene Antifungal Start: 05-11-2024 Start: 04-29-2024 ondansetron (ZOFRAN-ODT) disintegrating tablet 4 mg (1 source) Start: 04-18-2021 ondansetron (Z OFRAN-ODT) disintegrating tablet 4 mg ondansetron ODT (Zofran-ODT) disintegrating tablet 4 mg (2 sources) Start: 03-25-2024 take 1 tablet by mouth every eight hours as needed ondansetron ODT (Zofran-ODT) disintegrating tablet 4 mg Start: 03-11-2024 take 1 tablet by ananth th every eight hours as needed ondansetron ODT (Zofran-ODT) disintegrating tablet 4 mg oxygen (O2) therapy (4 sources) Start: 05-05-2024 Start: 03-25-2024 End: 03-25-2024 inhalation, Continuous PRN - O2/gases, other, Starting on Lexie 03/25/24 at 1831, Recovery (only), Device: Nasal Cannula, Rate in liters per minute: Other, Custom Value: 1-6 LPM, Keep O2 Sat Above: 92% Start: 03-11-2024 Start: 01-09-2024 2 L/min, inhal ation, Continuous, Starting on 01/09/24 at 1430, Phase II/On Unit, Titrate supplemental oxygen to maintain oxygen saturation greater than or equal to 92%. Okay to dc if not needed. , Device: Nasal Cannula, Rate in liters per minute: 2 LPM, Keep O2 Sat Above: 92% pantoprazole 40 mg delayed r elease oral tablet (5 sources) Proton Pump Inhibitor Start: 04-26-2024 Start: 04-01-2024 pantoprazole ( ProtoNix) EC tablet 40 mg Start: 03-12-2024 End: 04-15-2024 petrolatum 0.42 mg/mg topica l ointment (20 sources) Start: 04-26-2024 Start: 03-27-2024 Topical, Every 1 hour PRN, dry skin, Starting on 03/27/24 at 0927, Apply to dry skin on face. Do not apply to free flap. Start: 04-11-2023 End: 09-15-2023 white petrolatum (AQUAPHOR) 41 % topical ointment Indications: Skin excoriation , Dry skin dermatitis Apply to affected area as needed. 396 g 1 09/16/2023 Active Start: 01-24-2023 white petrolat um (AQUAPHOR) 41 % topical ointment Apply to affected area as needed. 396 g 1 01/24/2023 Active Start: 02-15-2021 mineral oil-hy drophilic petrolatum (AQUAPHOR) ointment Apply topically as needed. 0 02/15/2021 Active Comment on above: Apply to affected ar ea as needed. piperacillin 3000 mg / tazobactam 375 mg injection (6 sources) Penicillin-class Antibacterial, beta Lactamase Inhibitor Start: 05-01-2024 take 3.375 g intravenously every six hours Start: 03-12-2024 End: 03-14-2024 take 3.375 g intravenously every six hours 3.375 g, intravenous, Administer over 0.5 Hours, Every 6 hours, First dose on Fri03/12/24 at 1600, premix bag, Dosing of this medication varies based on severity of illness. Does this patient have sepsis or concern for sepsis (probable or documented infection plus systemic manifestations of infection)? No, Suspected Indication (Select all that apply): Osteomyelitis/Septic Arthritis, Indications: Osteomyelitis/Septic Arthritis Start: 01-09-2024 take 3.375 g intrave nously every six hours 3.375 g, intravenous, Administer over 0.5 Hours, Every 6 hours, First dose (after last reorder) on Fri01/09/24 at 2215, Phase II/On Unit, premix bag, Dosing of this medication varies based on severity of illness. Does this patient have sepsis or concern for sepsis (probable or documented infection plus systemic manifestations of infection)? No, Suspected Indication (Select all that apply): Surgical Prophylaxis, Indications: Surgical Prophylaxis Start: 01-09-2024 End: 01-09-2024 3.375 g, intravenous, Admini ster over 0.5 Hours, Once, On Fri01/09/24 at 1500, For 1 dose, Phase II/On Unit, premix bag, Dosing of this medication varies based on severity of illness. Does this patient have sepsis or concern for sepsis (probable or documented infection plus systemic manifestations of infection)? No, Suspected Indication (Select all that apply): Surgical Prophylaxis, Indications: Surgical Prophylaxis Start: 12-25-2020 End: 12-26-2020 4,500 mg, IntraVENous, EVERY 6 HOURS, First dose (after last reorder) on Fri12/25/20 at 1600, Until Discontinued Pharmacy auto changed dose, frequency & infusion time per Zosyn extended infusion policy for critical care initiation Original start date 12/21/20 Start: 01-06-2019 End: 01-08-2019 piperacillin-tazobactam (ZOS YN) 3.375 g in dextrose 50 mL IVPB extended infusion (premix) polyethylene glycol 3350 170 00 mg powder for oral solution (6 sources) Osmotic Laxative Start: 05-06-2024 Start: 03-28-2024 17 g, oral, Da ran, First dose on 03/28/24 at 1215 Start: 03-11-2024 17 g, oral, Da ran, First dose on Lexie 03/11/24 at 1930, Bowel Regimen - for prevention of constipation. Start: 01-09-2024 Start: 04-18-2021 17 g, Oral, DA RAN PRN, Constipation, Starting on Fri04/18/21 at 0151 First line therapy for constipation Start: 12-21-2020 End: 12-28-2020 17 g, Per G Tube, DAILY, Fir st dose on Lexie 12/21/20 at 0945 pregabalin 50 mg oral capsule (1 source) Start: 05-06-2024 Prochlorperazine (1 source) Phenothiazine Start: 01-09-2024 take 1 tablet by mouth every six hours as needed prochlorperazine (Compazine) tablet 10 mg promethazine hydrochloride 25 mg oral tablet (20 sources) Phenothiazine Start: 07-06-2024 take 1 tablet by mouth every six hours as needed promethazine (PHENERGAN) 25 mg tablet Take 1 tablet by mouth every 6 hours as needed. 30 tablet 2 07/06/2024 Active Start: 03-11-2024 take 1 tablet by ananth every six hours as needed promethazine (Phenergan) tablet 25 mg Start: 11-28-2022 End: 05-12-2024 take 25 mg by mouth every six hours as needed Start: 11-13-2022 End: 05-31-2024 take 1 tablet by mouth every six hours as needed promethazine (PHENERGAN) 25 mg tablet Take 1 tablet by mouth every 6 hours as needed. 30 tablet 2 05/31/2024 Active Start: 07-17-2021 End: 09-26-2022 take 1 tablet by mouth every six hours as needed promethazine (Phenergan) 25 MG tablet Take 25 mg by mouth every 6 hours as needed. 0 10/29/2021 Active Start: 11-04-2020 End: 07-13-2021 take 1 tablet by mouth every six hours as needed promethazine (PHENERGAN) 25 mg tablet Take 1 tablet by mouth every 6 hours as needed. 8 tablet 0 11/04/2020 07/13/2021 Discontinued Comment on above: Take 1 tablet by ananth th every 6 hours as needed. sennosides, chcf 8.6 mg oral tablet (5 sources) Start: take 1 tablet by mouth twice daily for constipation 17.2 mg (2 tablet), oral, 2 times daily, First dose on Lexie 03/11/24 at 2100, Bowel Regimen - for prevention of constipation Hold for loose stools Start: 12-29-2020 End: 01-28-2021 Start: 12-24-2020 End: 12-28-2020 17.6 mg (10 mL), Per G Tube, 2 TIMES DAILY, First dose on 12/24/20 at 2100 Start: 12-23-2020 End: 12-24-2020 take 1 tablet by mouth twice daily 8.6 mg (1 tablet), Oral, 2 TIMES DAILY, First dose on 12/23/20 at 0900 sertraline 100 mg oral tablet (20 sources) Serotonin Reuptake Inhibitor Start: 04-18-2021 take 100 mg by mouth once daily 100 mg, Oral, DAILY, First dose on Fri04/18/21 at 0900 Start: 01-05-2019 End: 10-04-2024 take 1 tablet by mouth once daily sertraline (ZOLOFT) 100 mg tablet Indications: Chronic anxiety Take 1 tablet by mouth once daily. Wean as directed. 90 tablet 07/06/2024 10/04/2024 Active Start: 01-04-2019 Sertraline 100 MG tablet Active 150 mg PO DAILY January 04, 2019 1:00am Start: 01-04-2019 take 150 mg by mouth once bubba y Sertraline Active 150 MG PO DAILY January 04, 2019 1:00am Comment on above: take 1 tablet by ananth th once daily Take 1 tablet by ananth th once daily. Take 1 tablet by ananth th once daily. Wean as directed. simethicone 80 mg chewable tablet (1 source) Start: 03-26-19 take 80 mg by mouth four times daily as needed 80 mg, oral, 4 times daily PRN, flatulence, Starting on Fri03/26/24 at 2141 sodium chloride flush 0.9 % injection 3 mL (1 source) Start: 04-18-19 sodium chloride flush 0.9 % injection 3 mL sulfamethoxazole 800 mg / trimethoprim 160 mg oral tablet (20 sources) Dihydrofolate Reductase Inhibitor Antibacterial, Sulfonamide Antimicrobial Start: 03-31-19 End: 06-03-19 Start: 01-16-2024 End: 05-30-2024 take 2 tablets by mouth three times daily sulfamethoxazole-trimethoprim (Bactrim D S) 800-160 mg tablet Indications: Tibia and fibula open fracture, right, sequela Take 2 tablets by mouth 3 times a day. 360 tablet 03/31/2024 05/30/2024 Active Start: 11-28-2022 Sulfamethoxazo le-Trimethoprim (Bactrim Ds) 800-160 mg tablet Active 1 {tbl} PO Q12H 28 November 28, 2022 12:00am Start: 09-05-2021 End: 09-26-2022 sulfamethoxazole-trimethopri m (BACTRIM DS,SEPTRA DS) 800-160 mg per tablet Take by mouth. 0 09/05/2021 09/26/2022 Discontinued Start: 09-05-2021 End: 05-13-2022 Sulfamethoxazole-Trimethopri m 1 TABLET tablet Discontinued 1 {tbl} PO TWICE A DAY September 05, 2021 12:00am May 13, 2022 2:40pm Start: 09-05-2021 End: 05-13-2022 take 1 tablet by mouth twice daily Sulfamethoxazole-Trimethoprim Discontinu ed 1 TABLET PO TWICE A DAY September 05, 2021 12:00am May 13, 2022 2:40pm Comment on above: Take by mouth. Underpads 23 X 24 pads (20 sources) Start: 11-13-2022 Underpads 23 X 24 pads Indications: Open wound of right knee, sequela 1 Each as needed. 200 Each 2 11/13/2022 Active Start: 06-26-2022 Underpads 23 X 24 pads Indications: Open wound of right knee, sequela 1 Each as needed. 200 Each 2 06/26/2022 Active Comment on above: 1 Each as needed. vancomycin (Vancocin) pharma cy to dose - pharmacy monitoring (1 source) Start: 01-09-2024 (12 sources) Start: 05-07-2024 End: 05-17-2024 Start: 05-05-2024 take 4 mg by mouth e very eight hours as needed [Order 1 Start] Name: ondansetron (Zofran) tablet 4 mg Signed Summary: 4 mg, oral, Every 8 hours PRN, nausea/vomiting, first line, Starting on Fri05/05/24 at 2112, Phase II/On Unit, 1st Line. Use oral route first, if possible. If inadequate response within 60 minutes, proceed to next-line agent for same PRN reason or contact provider if no further options ordered. [Order 1 End] [Order 2 Start] Name: ondansetron (Zofran) injection 4 mg Signed Summary: 4 mg, intravenous, Every 8 hours PRN, nausea/vomiting, first line, Starting on Fri05/05/24 at 211, Phase II/On Unit, 1st Line. Give IV if patient is unable to take orally. If inadequate response within 60 minutes, proceed to next-line agent for same PRN reason or contact provider if no further options ordered. When administering via IV Push, administer over 3-5 minutes. [Order 2 End] Start: 05-05-2024 take 10 mg by mouth every six hours as needed [Order 1 Start] Name: prochlorperazine (Compazine) tablet 10 mg Signed Summary: 10 mg, oral, Every 6 hours PRN, nausea/vomiting, second line, Starting on Fri05/05/24 at 211, Phase II/On Unit, 2nd Line. If inadequate response within 60 minutes, proceed to next-line agent for same PRN reason or contact provider if no further options ordered. [Order 1 End] [Order 2 Start] Name: prochlorperazine (Compazine) injection 10 mg Signed Summary: 10 mg, intravenous, Every 6 hours PRN, nausea/vomiting, second line, Starting on Fri05/05/24 at 2112, Phase II/On Unit, Give IV if patient is unable to take orally. [Order 2 End] [Order 3 Start] Name: prochlorperazine (Compazine) suppository 25 mg Signed Summary: 25 mg, rectal, Every 12 hours PRN, nausea/vomiting, second line, Starting on Fri05/05/24 at 2112, Phase II/On Unit, 2nd Line. Give MD if patient is unable to take orally or receive by injection. If inadequate response within 60 minutes, proceed to next-line agent for same PRN reason or contact provider if no further options ordered. [Order 3 End] Start: 12-28-2020 End: 12-28-2020 10 mmol, IntraVENous, at 166 .7 mL/hr, Administer over 90 Minutes, ONCE, On Lexie 12/28/20 at 0800, For 1 dose Start: 12-26-2020 End: 12-30-2020 IntraVENous, Administer over 3 Hours, EVERY 6 HOURS, First dose on Fri12/26/20 at 0900, For 18 doses Start: 12-23-2020 End: 12-26-2020 0.3 mg, Per G Tube, 3 TIMES DAILY, First dose (after last modification) on Fri12/23/20 at 0900 Hold for SBP < 110 Start: 12-22-2020 End: 12-22-2020 1,000 mg, IntraVENous, at 10 0 mL/hr, Administer over 60 Minutes, ONCE, On Fri12/22/20 at 1900, For 1 dose Infuse at 1 gm/hr Start: 12-21-2020 End: 12-25-2020 IntraVENous, Administer over 4 Hours, EVERY 8 HOURS, First dose on Fri12/21/20 at 1630 Start: 12-20-2020 End: 12-21-2020 3,375 mg, IntraVENous, at 25 mL/hr, Administer over 240 Minutes, EVERY 8 HOURS, First dose (after last modification) on Fri12/20/20 at 1615 Dose optimization per ASP for CrCl >/= 20 mL/min Start: 12-18-2020 End: 12-20-2020 4,500 mg, IntraVENous, at 33 .3 mL/hr, Administer over 180 Minutes, EVERY 6 HOURS, First dose on Fri12/18/20 at 1830 Start: 12-18-2020 End: 12-19-2020 2,000 mg, IntraVENous, at 50 mL/hr, Administer over 120 Minutes, ONCE, On Fri12/18/20 at 1800, For 1 dose Infuse at 1 gm/hr through central line Start: 12-18-2020 End: 12-25-2020 500 mg, IntraVENous, EVERY 1 2 HOURS, First dose on 12/18/20 at 1700, Until Discontinued (3 sources) Start: 05-12-2024 End: 05-23-2024 Start: 05-10-2024 End: 05-12-2024 Start: 05-07-2024 End: 05-21-2024 Completed/Discontinued Medications Medication Drug Class(es) Dates Sig (Normalized) Sig (Original) acetaminophen 325 mg / HYDROcodone bitartrate 5 mg oral tablet (4 sources) Opioid Agonist Start: 09-05-2021 End: 05-13-2022 Hydrocodone-Acetami nophen 1 TABLET tablet Discontinued 1 {tbl} PO EVERY 4 HOURS NEEDED as needed for Pain 15 September 05, 2021 May 13, 2022 2:37pm Start: 09-05-2021 End: 05-13-2022 take 1 tablet by mouth every four hours as needed Hydrocodone-Acetaminophen Discontinued 1 TABLET PO EVERY 4 HOURS NEEDED 01 05September 05, 2021 May 13, 2022 2:37pm acetaminophen 325 mg / oxyCODONE hydrochloride 5 mg oral tablet (1 source) Opioid Agonist Start: 04-18-2021 End: 04-18-2021 oxyCODONE-acetaminophen (PERCOCET) 5-325 MG per tablet 1 tablet 500 ml albumin human, chcf 50 mg/ml injection (1 source) Human Serum Albumin Start: 03-25-2024 End: 03-25-2024 12.5 g, intravenous, at 250 mL/hr, Administer over 60 Minutes, Once, On [facility] 03/25/24 at 2200, For 1 dose, Recovery (only), Recommended infusion rate 2-4 mL/min., Was crystalloid challenge performed and/or failed? Yes, Is albumin required for general surgery? Yes Start: 03-25-2024 End: 03-25-2024 12.5 g, intravenous, at 250 mL/hr, Administer over 60 Minutes, Once, On Lexie 03/25/24 at 2200, For 1 dose, Recovery (only), Recommended infusion rate 2-4 mL/min., Was crystalloid challenge performed and/or failed? Yes, Is albumin required for general surgery? Yes aspirin 81 mg chewable tablet (20 sources) Platelet Aggregation Inhibitor, Nonsteroidal Anti-inflammatory Drug Start: 05-05-2024 End: 05-10-2024 Start: 04-01-2024 End: 05-12-2024 Start: 03-26-2024 End: 04-25-2024 aspirin 81 mg chewable table t Indications: Chronic multifocal osteomyelitis of right tibia (Multi) Chew 1 tablet (81 mg) once daily for 24 doses. 24 tablet 04/01/2024 04/01/2024 Discontinued Start: 03-17-2024 take 81 mg by mouth twice daily 81 mg, oral, 2 times daily, First dose on Fri03/17/24 at 0900 Start: 01-09-2024 take 81 mg by mouth twice daily 81 mg, oral, 2 times daily, First dose on Fri01/09/24 at 1430, Phase II/On Unit, Do not crush, chew, or split. Start: 03-24-2021 End: 09-26-2022 aspirin 81 mg chewable table t Take 81 mg by mouth. 0 03/24/2021 09/26/2022 Discontinued Start: 02-15-2021 take 1 tablet by ananth th once daily aspirin 81 MG EC tablet Take 1 tablet by mouth daily 30 tablet 3 02/15/2021 Active Comment on above: Take 81 mg by mouth. calcium chloride 0.0014 meq/ ml / potassium chloride 0.004 meq/ml / sodium chloride 0.103 meq/ml / sodium lactate 0.028 meq/ml injectable solution (6 sources) Start: 05-05-2024 End: 05-06-2024 Start: 03-25-2024 End: 03-26-2024 take 100 mL intravenously every hour 100 mL/hr, intravenous, Continuous, Starting on Fri03/25/24 at 1900, For 1 day, Recovery (only) Start: 03-12-2024 End: 03-13-2024 take 100 mL intravenously every hour 100 mL/hr, intravenous, Continuous, Starting on Fri03/12/24 at 1200, For 1 day, Recovery (only) Start: 12-28-2020 End: 12-28-2020 1,000 mL, IntraVENous, at 1, 000 mL/hr, Administer over 1 Hours, ONCE, On Lexie 12/28/20 at 1030, For 1 dose [address] scan. Start: 01-05-2019 End: 01-08-2019 Intravenous, at 125 mL/hr, CONTINUOUS, Starting Fri01/05/19 at 1915 ceFAZolin 2000 mg injection (1 source) Cephalosporin Antibacterial Start: 05-05-2024 End: 05-06-2024 take 2 g intravenously every eight hours cefdinir 300 mg oral capsule (5 sources) Cephalosporin Antibacterial Start: 03-31-2024 End: 06-29-2024 Start: 04-18-2021 End: 05-02-2021 take 1 dose by mouth twice daily 300 mg, Oral, EVERY 1 2 HOURS SCHEDULED (2 times per day), First dose on Fri04/18/21 at 0900, For 14 days Start: 04-12-2021 End: 05-01-2021 take 1 capsule by mouth every twelve hours cefdinir (OMNICEF) 300 MG capsule Take 1 capsule by mouth every 12 hours for 19 days 38 capsule 0 04/12/2021 05/01/2021 Active chlorhexidine gluconate 40 m g/ml medicated liquid soap (3 sources) Start: 12-30-2023 End: 01-16-2024 chlorhexidine (Hibiclens) 4 % external liquid Indications: Surgery, elective Apply 1 Application topically once daily for 5 days. Use per CPM/PAT provided instructions 25 mL 12/30/2023 01/16/2024 Discontinued (Stop Taking at Discharge) Start: 12-25-2020 take 15 mL by mouth four times daily 15 mL, Mouth/Throat, 4 TIMES DAILY, First dose on Fri12/25/20 at 2100 Rinse and spit. Do not swallow. Start: 12-18-2020 End: 12-23-2020 take 15 mL by mouth twice daily 15 mL, Mouth/Throat, 2 TIMES DAILY, First dose on Fri12/18/20 at 2100 For mechanical ventilation care. ciprofloxacin 500 mg oral tablet (6 sources) Quinolone Antimicrobial Start: 01-29-2022 End: 02-28-2022 take 1 tablet by mouth in the morning ciprofloxacin (Cipro) 500 MG tablet Take 1 tablet (500 mg) by mouth in the morning and 1 tablet (500 mg) before bedtime. 60 tablet 0 01/29/2022 02/28/2022 50 ml clindamycin 12 mg/ml injection (5 sources) Lincosamide Antibacterial Start: 01-05-2019 End: 01-06-2019 600 mg, Intravenous, EVERY 8 HOURS, First dose on Fri01/05/19 at 2000, Until Discontinued Start: 01-01-2019 End: 05-13-2022 take 2 capsules by mouth four times daily Clindamycin Hcl 150 MG capsule Discontinued 300 mg PO 4 TIMES DAILY 80 January 01, 2019 1:00am May 13, 2022 2:37pm Start: 01-01-2019 End: 05-13-2022 take 300 mg by mouth four times daily Clindamycin Hcl Discontinued 300 MG PO 4 TIMES DAILY 80 January 01, 2019 1:00am May 13, 2022 2:37pm cyclobenzaprine hydrochloride 10 mg oral tablet (1 source) Muscle Relaxant Start: 01-09-2024 End: 01-10-2024 take 10 mg by mouth three times daily as needed for muscle spasms 10 mg, oral, 3 times daily PRN, muscle spasms, Starting on Fri01/09/24 at 1410, Phase II/On Unit, Indications: muscle spasm dalbavancin (Dalvance) 1,500 mg in dextrose 5% 500 mL IV (2 sources) Start: 03-26-2024 End: 03-26-2024 1,500 mg, intravenous, at 1,150 mL/hr, Administer over 30 Minutes, Once, On Fri03/26/24 at 0845, For 1 dose, Flush line before and after administration with D5W, Suspected Indication (Select all that apply): Osteomyelitis/Septic Arthritis, Indications: Osteomyelitis/Septic Arthritis Start: 03-17-2024 End: 03-17-2024 1,500 mg, intravenous, at 1, 150 mL/hr, Administer over 30 Minutes, Once, On Fri03/17/24 at 1815, For 1 dose, Flush line before and after administration with D5W, Suspected Indication (Select all that apply): Osteomyelitis/Septic Arthritis, Type of Therapy: Definitive, Based on Culture, Coverage (Select all that apply): MRSA: Staph, Methicillin-Resistant, Indications: Osteomyelitis/Septic Arthritis dalbavancin 1,500 mg in dextrose 5% 500 mL (7 sources) Start: 03-24-2024 End: 03-25-2024 dalbavancin 1,500 mg in dext vee 5% 500 mL Indications: Chronic multifocal osteomyelitis of right tibia (Multi) Infuse 1,500 mg at 1,150 mL/hr over 30 minutes into a venous catheter 1 time for 1 dose. Dose to be given on 03/24/2024 in infusion clinic Do not fill before March 24, 2024. 1 Units 03/24/2024 03/25/2024 Discontinued (Med List Cleanup) Start: 03-24-2024 End: 03-17-2024 dalbavancin 1,500 mg in dext vee 5% 500 mL Indications: Chronic multifocal osteomyelitis of right tibia (Multi) Infuse 1,500 mg at 1,150 mL/hr over 30 minutes into a venous catheter 1 time for 1 dose. Dose to be given on 03/24/2024 in infusion clinic Do not fill before March 24, 2024. 1 Units 03/24/2024 03/17/2024 Discontinued Start: 03-24-2024 End: 03-24-2024 dalbavancin 1,500 mg in dext vee 5% 500 mL Indications: Chronic multifocal osteomyelitis of right tibia (Multi) Infuse 1,500 mg at 1,150 mL/hr over 30 minutes into a venous catheter 1 time for 1 dose. Dose to be given on 03/24/2024 in infusion clinic Do not fill before March 24, 2024. 1 Units 03/24/2024 03/24/2024 Active Start: 03-17-2024 End: 03-17-2024 dalbavancin 1,500 mg in dext vee 5% 500 mL Indications: Chronic multifocal osteomyelitis of right tibia (Multi) Infuse 1,500 mg at 1,150 mL/hr over 30 minutes into a venous catheter 1 time for 1 dose. 1 Units 03/17/2024 03/17/2024 Discontinued DAPTOmycin (Cubicin) 600 mg in sodium chloride 0.9% 50 mL IV (1 source) Start: 03-14-2024 End: 03-14-2024 600 mg (rounded from 590 mg = 10 mg/kg 59 kg Order-specific weight), intravenous, at 124 mL/hr, Administer over 30 Minutes, Every 24 hours, First dose on Fri03/14/24 at 1200, For 1 day, Suspected Indication (Select all that apply): Osteomyelitis/Septic Arthritis, Indications: Osteomyelitis/Septic Arthritis DAPTOmycin (Cubicin) 750 mg in sodium chloride 0.9% 50 mL IV (1 source) Start: 03-15-2024 End: 03-17-2024 750 mg (rounded from 748 mg = 10 mg/kg 74.8 kg Adjusted weight), intravenous, at 130 mL/hr, Administer over 30 Minutes, Every 24 hours, First dose on 03/15/24 at 1200, For 42 days, Suspected Indication (Select all that apply): Osteomyelitis/Septic Arthritis, Type of Therapy: Definitive, Based on Culture, Coverage (Select all that apply): MRSA: Staph, Methicillin-Resistant, Indications: Osteomyelitis/Septic Arthritis 100 ml dexmedetomidine 0.004 mg/ml injection (1 source) Central alpha-2 Adrenergic Agonist Start: 12-23-2020 End: 12-29-2020 take 4.4-31 mL intravenously every hour 0.2-1.4 mcg/kg/hr 88.6 kg (4.43-31.01 mL/hr, rounded to 4.4-31 mL/hr), IntraVENous, CONTINUOUS, Starting on 12/23/20 at 0900 For sedation, titrate to RASS +1 to -1 Dose Range: 0 .2 to 1.4 mcg/kg/hr Initial dose 1.0 mcg/kg/hr Max dose: 1.4 mcg/kg/hr Contact physician if max dose does not achieve desired response If RASS 1 or more points below goal, decrease dose by 0.1 mcg/kg/hr no faster than every 30 min If RASS at goal, continue same rate If RASS 1 or more points above goal, increase dose by 0.1 mcg/kg/hr no faster than every 30 min doxycycline hyclate 100 mg oral tablet (20 sources) Tetracycline-c lass Drug Start: 01-29-2022 End: 02-28-2022 take 1 tablet by mouth every twelve hours doxycycline (Vibra-Tabs) 100 MG tablet Take 1 tablet (100 mg) by mouth in the morning and 1 tablet (100 mg) in the evening. Take with a full glass of water and do not lie down for at least 30 minutes after.. 60 tablet 0 01/29/2022 02/28/2022 Start: 06-12-2021 End: 09-26-2022 take 1 capsule by mouth twice daily doxycycline hyclate (VIBRAMYCIN) 100 mg capsule Take 1 capsule by mouth twice daily for 7 days. 14 capsule 0 07/24/2021 07/31/2021 Active Start: 04-18-2021 End: 05-02-2021 take 1 dose by mouth twice daily 100 mg, Oral, EVERY 12 HOURS SCHEDULED (2 times per day), First dose on Fri04/18/21 at 0900, For 14 days This medication can interact with tube feedings (TF)- obtain MD order to manage. Recommend holding TF for 1 h before and 2 h after dose. Take 1 h before or 2 h after dairy, calcium, iron, magnesium, aluminum or zinc. Start: 04-12-2021 End: 05-01-2021 take 1 capsule by mouth every twelve hours doxycycline monohydrate (MONODOX) 100 MG capsule Take 1 capsule by mouth every 12 hours for 19 days 38 capsule 0 04/12/2021 05/01/2021 Active Comment on above: Take 1 capsule by mo [facility] twice daily for 10 days. Take 1 capsule by mo [facility] twice daily for 7 days. doxycycline hyclate 100 mg capsule take 1 capsule by mouth twice a day for 7 days 0.4 ml enoxaparin sodium 100 mg/ml prefilled syringe (8 sources) Low Molecular Weight Heparin Start: 04-26-2024 End: 05-05-2024 Start: 03-30-2024 inject 40 mg by subc utaneous injection once daily 40 mg, subcutaneous, Daily, First dose on Fri03/30/24 at 0900 Start: 03-13-2024 End: 03-17-2024 inject 40 mg by subcutaneous injection once daily 40 mg, subcutaneous, Daily, First dose on Fri03/13/24 at 0900 Start: 04-18-2021 inject 40 mg by subc utaneous injection once daily 40 mg, SubCUTAneous, DAILY, First dose on Fri04/18/21 at 0900 Start: 12-23-2020 End: 01-28-2021 Start: 01-06-2019 inject 40 mg by subc utaneous injection once daily 40 mg, Subcutaneous, DAILY, First dose on Fri01/06/19 at 0900 1 ml fentaNYL 0.05 mg/ml injection (1 source) Opioid Agonist Start: 03-12-2024 End: 03-12-2024 100 mcg, intravenous, Once, On Fri03/12/24 at 1230, For 1 dose Start: 03-12-2024 End: 03-12-2024 100 mcg, intravenous, Once, On Fri03/12/24 at 1230, For 1 dose Gauze Bandage (GAUZE PAD) 4 X 4 bndg (20 sources) Start: 11-13-2022 Gauze Bandage (GAUZE PAD) 4 X 4 bndg Indications: Open wound of right knee, sequela Apply 1 application to affected area as needed. 100 Each 2 11/13/2022 Active Start: 06-26-2022 Gauze Bandage (GAUZE PAD) 4 X 4 bndg Indications: Open wound of right knee, sequela Apply 1 application to affected area as needed. 100 Each 2 06/26/2022 Active Comment on above: Apply 1 application to affected area as needed. gauze bandage (ROLLED GAUZE) 4.5 X 3 yard bndg (20 sources) Start: 11-13-2022 gauze bandage (ROLLED GAUZE) 4.5 X 3 yard bndg Indications: Open wound of right knee, sequela Apply 1 Each to affected area as needed. 3 Each 2 11/13/2022 Active Start: 06-26-2022 gauze bandage (ROLLED GAUZE) 4.5 X 3 yard bndg Indications: Open wound of right knee, sequela Apply 1 Each to affected area as needed. 3 Each 2 06/26/2022 Active Comment on above: Apply 1 Each to affe cted area as needed. 250 ml heparin sodium, porcine 100 unt/ml injection (6 sources) Unfractionated Heparin, Anti-coagulant Start: 05-09-2024 End: 05-11-2024 Start: 03-26-2024 End: 03-29-2024 inject 5000 [IU] by subcutaneous injection every eight hours 5,000 Units, subcutaneous, Every 8 hours, First dose on Fri03/26/24 at 0000, Phase II/On Unit Start: 12-21-2020 250 Units, Int raCATHeter, EVERY 12 HOURS, First dose on Lexie 12/21/20 at 1245 Each lumen. Do NOT administer to lumens with continuous fluids currently infusing. Line Care. Use 10 mL or larger syringe. Start: 12-21-2020 250 Units, Int raCATHeter, PRN, Line Care, after blood draws and after infusion, Starting on Lexie 12/21/20 at 1222 Do NOT administer to lumens with continuous fluids currently infusing. Line Care. Use 10 mL or larger syringe. Start: 12-20-2020 250 Units, Int raVENous, EVERY 12 HOURS SCHEDULED (2 times per day), First dose on 12/20/20 at 1015 Flush each lumen of PICC not connected to a continuous infusion. Start: 12-20-2020 250 Units, Int raVENous, PRN, Line Care, Starting on 12/20/20 at 0946 Flush each lumen of PICC. hydroCHLOROthiazide 12.5 mg oral capsule (13 sources) Thiazide Diuretic Start: 02-03-2019 End: 06-26-2021 Hydrochlorothiazide 12.5 mg capsule Indications: Hypertension, essential Take 1 capsule by mouth as needed. 30 capsule 5 02/03/2019 06/26/2021 Discontinued (Discontinued by another Health Care Provider) Comment on above: Take 1 capsule by [facility] as needed. hydrOXYzine hydrochloride 25 mg oral tablet (14 sources) Antihistamine Start: 09-18-2020 End: 06-26-2021 take 1 tablet by mouth three times daily hydrOXYzine HCl (ATARAX) 25 mg tablet Indications: Adjustment disorder with anxious mood take 1 tablet by mouth three times a day if needed for ITCHING 30 tablet 2 09/18/2020 06/26/2021 Discontinued (Changing Therapy/Dosage Form) Comment on above: take 1 tablet by [facility] three times a day if needed for ITCHING sodium hypochlorite 2.5 mg/ml topical solution (1 source) Start: 04-26-2024 End: 05-03-2024 iohexol (OMNIPaque) 350 mg iodine/mL solution 90 mL (1 source) Start: 03-14-2024 End: 03-14-2024 90 mL, intravenous, Once in imaging, Starting on Fri03/14/24 at 1622, For 1 dose Iopamidol (1 source) Radiographic Contrast Agent Start: 01-05-2019 End: 01-05-2019 iopamidol (ISOVUE-370) 76 % injection 75 mL ketamine 10 mg/ml injectable solution (1 source) General Anesthetic Start: 12-26-2020 End: 12-29-2020 10 mg, Oral, EVERY 6 HOURS, First dose on Fri12/26/20 at 1130 Administer via g tube 1 ml ketorolac tromethamine 30 mg/ml injection (4 sources) Nonsteroidal Anti-inflammator y Drug, Cyclooxygenase Inhibitor Start: 05-06-2024 End: 05-07-2024 take 30 mg intravenously every six hours Start: 03-31-2024 End: 03-31-2024 15 mg, intravenous, Once, On Fri03/31/24 at 1430, For 1 dose Start: 03-31-2024 End: 03-31-2024 30 mg, intravenous, Once, On Fri03/31/24 at 0300, For 1 dose Start: 01-05-2019 End: 01-05-2019 ketorolac (TORADOL) injectio n 15 mg linezolid 600 mg oral tablet (8 sources) Oxazolidinone Antibacterial Start: 01-07-2019 End: 01-21-2019 take 1 tablet by mouth twice daily linezolid (ZYVOX) 600 MG tablet Take 1 tablet by mouth 2 times daily for 9 days 18 tablet 0 01/12/2019 01/21/2019 1 ml LORazepam 2 mg/ml injection (3 sources) Benzodiazepine Start: 01-07-2019 End: 01-07-2019 LORazepam (ATIVAN) injection 0.5 mg Start: 01-05-2019 End: 01-05-2019 LORazepam (ATIVAN) injection 1 mg Start: 01-05-2019 End: 01-05-2019 LORazepam (ATIVAN) 2 MG/ML i njection magnesium oxide 400 mg oral tablet (1 source) Start: 12-27-2020 End: 12-27-2020 take 400 mg by mouth once daily 400 mg, Oral, DAILY, First dose on Fri12/27/20 at 1200, For 1 dose 50 ml magnesium sulfate 40 mg/ml injection (1 source) Start: 05-05-2024 End: 05-06-2024 take 2 g intravenously every eight hours meloxicam 15 mg oral tablet (20 sources) Nonsteroidal Anti-inflammatory Drug Start: 11-05-2021 End: 07-25-2022 take 1 tablet by mouth once daily meloxicam (MOBIC) 15 mg tablet Take 1 tablet by mouth once daily. 30 tablet 2 11/05/2021 07/25/2022 Discontinued (Discontinued by Patient) Start: 09-21-2021 End: 11-02-2021 take 1 tablet by mouth once daily meloxicam (MOBIC) 15 mg tablet Take 1 tablet by mouth once daily. 30 tablet 2 09/21/2021 11/02/2021 Discontinued Start: 07-24-2021 take 1 tablet by ananth th once daily at mealtime meloxicam (MOBIC) 15 mg tablet Take 1 tablet by mouth once daily. Take with food. 30 tablet 2 07/24/2021 Active Comment on above: Take 1 tablet by ananth th once daily. Take with food. meloxicam 15 mg tabl et take 1 tablet by mouth once daily with food Take 1 tablet by ananth th once daily. meropenem (MERREM) 1 g in sodium chloride 0.9 % 100 mL IVPB (2 sources) Start: 01-05-2019 End: 01-06-2019 1 g, Intravenous, at 200 mL/hr, Administer over 30 Minutes, EVERY 8 HOURS, First dose on Fri01/05/19 at 2130 Start: 01-05-2019 End: 01-05-2019 meropenem (MERREM) 1 g in so dium chloride 0.9 % 100 mL IVPB 10 ml methocarbamol 100 mg/m l injection (13 sources) Muscle Relaxant Start: 05-05-2024 End: 05-05-2024 Start: 03-31-2024 End: 05-12-2024 Start: 03-30-2024 take 1000 mg by mout h every eight hours 1,000 mg, oral, Every 8 hours scheduled, First dose on Fri03/30/24 at 0715 Start: 03-13-2024 take 500 mg by mouth every six hours 500 mg, oral, Every 6 hours scheduled, First dose on Fri03/13/24 at 1200 Start: 03-12-2024 End: 03-12-2024 1,000 mg, intravenous, Admin ister over 5 Minutes, Once, On Fri03/12/24 at 1245, For 1 dose Start: 04-19-2021 take 1000 mg by mout h four times daily 1,000 mg, Oral, 4 TIMES DAILY, First dose on Lexie 04/19/21 at 1300 Start: 04-12-2021 End: 05-10-2021 take 2 tablets by mouth four times daily methocarbamol (ROBAXIN) 500 MG tablet Take 2 tablets by mouth 4 times daily for 10 days 80 tablet 0 04/30/2021 05/10/2021 Active Start: 12-25-2020 End: 01-08-2021 ondansetron 4 mg disintegrat ing oral tablet (6 sources) Serotonin-3 Receptor Antagonist Start: 03-31-2024 End: 05-12-2024 Start: 01-09-2024 take 1 tablet by ananth th every eight hours as needed ondansetron (Zofran) tablet 4 mg Start: 02-14-2021 End: 04-18-2021 take 1 tablet by mouth every eight hours as needed for nausea ondansetron (ZOFRAN-ODT) 4 MG disintegrating tablet Take 1 tablet by mouth every 8 hours as needed for Nausea or Vomiting 0 02/14/2021 04/18/2021 Discontinued (LIST CLEANUP) Start: 12-18-2020 take 4 mg by mouth e very six hours as needed for nausea 4 mg, IntraVENous, EVERY 6 HOURS PRN, Nausea, Vomiting, Starting on 12/18/20 at 1523 Administer if oral route cannot be used. Start: 01-05-2019 4 mg, Intraven ous, EVERY 6 HOURS PRN, Nausea, Vomiting, Starting 01/05/19 at 1858 oxyCODONE hydrochloride 5 mg oral tablet (20 sources) Opioid Agonist Start: 05-05-2024 End: 05-19-2024 take 10 mg by mouth every four hours as needed Start: 03-25-2024 take 1 tablet by ananth th every four hours as needed 10 mg, oral, Every 4 hours PRN, pain severe (7-10), first line, Starting on Fri03/25/24 at 2335, Phase II/On Unit, If ordered PRN for pain, nurse is permitted to administer this medication for higher pain scores based on patient preference? Yes Start: 03-25-2024 take 1 tablet by ananth th every four hours as needed 5 mg, oral, Every 4 hours PRN, pain moderate (4-6), first line, Starting on Lexie 03/25/24 at 2335, Phase II/On Unit, If ordered PRN for pain, nurse is permitted to administer this medication for higher pain scores based on patient preference? Yes Start: 03-11-2024 take 1 tablet by ananth th every four hours as needed Start: 03-11-2024 take 1 tablet by ananth th every four hours as needed 10 mg, oral, Every 4 hours PRN, pain severe (7-10), first line, Starting on Lexie 03/11/24 at 1904, If ordered PRN for pain, nurse is permitted to administer this medication for higher pain scores based on patient preference? Yes Start: 03-11-2024 take 1 tablet by ananth th every four hours as needed 5 mg, oral, Every 4 hours PRN, pain moderate (4-6), first line, Starting on Lexie 03/11/24 at 1904, If ordered PRN for pain, nurse is permitted to administer this medication for higher pain scores based on patient preference? Yes Start: 01-12-2024 End: 01-21-2024 take 1 tablet by mouth every six hours in the evening for pain oxyCODONE (Roxicodone) 5 mg immediate release tablet Indications: Postoperative pain Take 1 tablet (5 mg) by mouth every 6 hours if needed for severe pain (7 - 10) for up to 7 days. 28 tablet 01/14/2024 2:33 PM EST 01/12/2024 01/21/2024 Active Start: 01-10-2024 take 1 tablet by ananth th every six hours as needed 2.5 mg, oral, Every 6 hours PRN, pain moderate (4-6), first line, Starting on 01/10/24 at 1112, Phase II/On Unit, If ordered PRN for pain, nurse is permitted to administer this medication for higher pain scores based on patient preference? Yes Start: 01-10-2024 take 1 tablet by ananth th every four hours as needed 5 mg, oral, Every 4 hours PRN, pain severe (7-10), first line, Starting on 01/10/24 at 1112, Phase II/On Unit, If ordered PRN for pain, nurse is permitted to administer this medication for higher pain scores based on patient preference? Yes Start: 01-09-2024 End: 01-10-2024 take 1 tablet by mouth every four hours as needed 10 mg, oral, Every 4 hours PRN, pain severe (7-10), first line, Starting on 01/09/24 at 1410, Phase II/On Unit, If ordered PRN for pain, nurse is permitted to administer this medication for higher pain scores based on patient preference? Yes Start: 04-30-2021 End: 05-03-2021 take 1 tablet by mouth every four hours as needed for pain oxyCODONE (ROXICODONE) 5 MG immediate release tablet Indications: Open wound knee/leg with tendon involvment, right, sequela Take 1 tablet by mouth every 4 hours as needed for Pain for up to 3 days. 12 tablet 0 04/30/2021 05/03/2021 Active Start: 04-18-2021 oxyCODONE (IVELISSE ICODONE) immediate release tablet 5 mg Start: 04-12-2021 End: 04-18-2021 take 1 tablet by mouth once daily, then take 1 tablet by mouth once daily oxyCODONE (ROXICODONE) 5 MG immediate release tablet Indications: Open wound knee/leg with tendon involvment, right, sequela , Open wound of right knee with tendon involvement, subsequent encounter Take 1 tablet by mouth daily for 5 days. 1 tablet daily before therapy sessions. Take lowest dose possible to manage pain 5 tablet 0 04/12/2021 04/18/2021 Discontinued (LIST CLEANUP) Start: 12-26-2020 take 15 mg by mouth every four hours as needed for pain 15 mg, Oral, EVERY 4 HOURS PRN, Pain Moderate (4-6), Pain Severe (7-10), Starting on 12/26/20 at 1055 Start: 12-25-2020 End: 12-26-2020 take 10 mg by mouth every four hours as needed for pain 10 mg, Oral, EVERY 4 HOURS PRN, Pain Moderate (4-6), Starting on 12/25/20 at 0928 Start: 12-21-2020 End: 12-25-2020 10 mg, Per G Tube, EVERY 6 H OURS, First dose on Lexie 12/21/20 at 0945 Start: 01-12-2019 End: 01-19-2019 oxyCODONE (ROXICODONE) 5 MG immediate release tablet Indications: Necrotizing fasciitis (HCC) Take 1 tablet by mouth every 6 hours as needed for Pain for up to 7 days. Intended supply: 7 days. Take lowest dose possible to manage pain 28 tablet 0 01/12/2019 01/19/2019 Start: 01-11-2019 oxyCODONE (IVELISSE ICODONE) immediate release tablet 5 mg Start: 01-10-2019 End: 01-11-2019 oxyCODONE (ROXICODONE) immed iate release tablet 10 mg potassium chloride 20 meq powder for oral solution (6 sources) Start: 12-28-2020 End: 12-29-2020 40 mEq, Oral, ONCE, On Fri12/29/20 at 0700, For 1 dose Dilute with at least 4 ounces of cold water. May further dilute if GI adverse effects occur. Start: 12-27-2020 End: 12-27-2020 40 mEq, Per G Tube, ONCE, On Fri12/27/20 at 0645, For 1 dose Dilute with at least 4 ounces of cold water. May further dilute if GI adverse effects occur. Start: 12-22-2020 End: 12-23-2020 20 mEq, IntraVENous, at 50 m L/hr, EVERY HOUR, First dose on Fri12/22/20 at 1000, For 3 doses Start: 12-22-2020 End: 12-22-2020 Starting on Fri12/22/20 at 0 933, For 1 dose FINA YUN: cabinet override Start: 12-21-2020 End: 12-21-2020 40 mEq, Oral, ONCE, On Lexie 02/21/20 at 1000, For 1 dose Dilute with at least 4 ounces of cold water. May further dilute if GI adverse effects occur. 20 ml propofol 10 mg/ml injection (4 sources) General Anesthetic Start: 12-24-2020 End: 12-24-2020 ONCE PRN, Starting on 12/24/20 at 1030, For 1 dose Start: 12-18-2020 End: 12-24-2020 5-50 mcg/kg/min 88.6 kg (2.6 58-26.58 mL/hr, rounded to 2.7-26.6 mL/hr), IntraVENous, TITRATED, Starting on 12/18/20 at 1600 For sedation, titrate to RASS +1 to -1 Dose Range: 5 to 50 mcg/kg/min Max dose: 50 mcg/kg/min Initial dose: 5 mcg/kg/min Contact physician if max dose does not achieve desired response. If RASS 1 point below goal - decrease dose by 5 mcg/kg/min no faster than every 5 min. If RASS 2 points below goal - decrease dose by 10 mcg/kg/min no faster than every 5 min. If RASS at goal, continue current dose. If RASS 1 point above goal - increase dose by 5 mcg/kg/min no faster than every 5 min. If RASS 2 or more points above goal - increase dose by 10 mcg/kg/min no faster than every 5 min. If after titration rate change patient exhibits adverse hemodynamic response, next titration rate change may be adjusted by one-half of the previous rate change. Unless patient is on a paralytic agent or is in ARDS, propofol infusion must be stopped once per shift until the RASS score is 0. Once a RASS of zero is obtained, restart the infusion at 50% of the previous rate and resume titration to RASS above. Do not administer through the same I.V. catheter with blood or plasma. Tubing and any unused portions of propofol vials should be discarded after 12 hours. 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 180 capsule 3 03/31/2024 06/29/2024 Active Start: 03-14-2024 take 300 mg by mouth once daily 300 mg, oral, Daily, First dose on Fri03/14/24 at 1200, Suspected Indication (Select all that apply): Osteomyelitis/Septic Arthritis, Indications: Osteomyelitis/Septic Arthritis 1000 ml sodium chloride 9 mg /ml injection (20 sources) Start: 05-03-2024 End: 05-05-2024 Start: 04-26-2024 End: 04-26-2024 Start: 03-26-2024 End: 03-27-2024 take 100 mL intravenously every hour 100 mL/hr, intravenous, Continuous, Starting on Fri03/26/24 at 0000, For 1 day, Phase II/On Unit Start: 04-18-2021 take 1 dose intraven ously twice daily 5-40 mL, IntraVENous, EVERY 12 HOURS SCHEDULED (2 times per day), First dose on Fri04/18/21 at 0900 For Line Patency: Peripheral IV = 5 mL; Midline or Central Line = 10 mL/lumen. If following IV push medication, administer flush at same rate as the IV push. Flush volume is determined by type of infusion therapy being given. For non-viscous solutions use: Peripheral IV = 5 mL Midline or Central Line = 10 mL/lumen For viscous solutions (i.e. blood components, parenteral nutrition, contrast media, or after obtaining blood sample) use: Peripheral IV = 10 mL Midline or Central Line = 20 mL/lumen Start: 04-18-2021 take 25 mL intraveno usly every hour as needed 25 mL, IntraVENous, at 100 mL/hr, PRN, If patient receiving piggyback infusions without ordered maintenance IV fluids or with frequent/long duration piggyback infusions, Starting on Fri04/18/21 at 0151 Administer at the same rate as the piggyback being infused. Start: 04-18-2021 take 5-40 mL intrave nously once as needed 5-40 mL, IntraVENous, PRN, Line Care, After every IV line use, Starting on Fri04/18/21 at 0151 For Line Patency: Peripheral IV = 5 mL; Midline or Central Line = 10 mL/lumen. If following IV push medication, administer flush at same rate as the IV push. Flush volume is determined by type of infusion therapy being given. For non-viscous solutions use: Peripheral IV = 5 mL Midline or Central Line = 10 mL/lumen For viscous solutions (i.e. blood components, parenteral nutrition, contrast media, or after obtaining blood sample) use: Peripheral IV = 10 mL Midline or Central Line = 20 mL/lumen Start: 12-28-2020 End: 12-28-2020 500 mL (5.64 mL/kg), IntraVENous, at 250 mL/hr, Administer over 2 Hours, ONCE, On Lexie 12/28/20 at 0700, For 1 dose Start: 12-26-2020 4 mL, Nebuliza tion, EVERY 8 HOURS, First dose on Fri12/26/20 at 1130 Start: 12-21-2020 10 mL, IntraCA THeter, EVERY 12 HOURS, First dose on Fri12/21/20 at 1245 Administer to each lumen, regardless of whether or not fluids are infusing. Line Care. Use 10 mL or larger syringe. Start: 12-21-2020 10 mL, IntraCA THeter, PRN, Line Care, before blood draws, before and after infusion or medication administration, Starting on Fri12/21/20 at 1222 Use 10 mL or larger syringe. Start: 12-20-2020 10 mL, IntraVE Nous, PRN, Line Care, Starting on Fri12/20/20 at 0946 Flush each lumen of PICC. Start: 12-19-2020 End: 12-20-2020 1,000 mL (11.3 mL/kg), IntraVENous, at 1,000 mL/hr, Administer over 1 Hours, ONCE, On Fri12/19/20 at 2330, For 1 dose Start: 12-18-2020 10 mL, IntraVE Nous, EVERY 12 HOURS SCHEDULED (2 times per day), First dose on Fri12/20/20 at 1015 Flush each lumen of PICC not connected to a continuous infusion. Start: 12-18-2020 take 5-40 mL intrave nously once as needed 5-40 mL, IntraVENous, PRN, Line Care, After every IV line use, Starting on Fri12/18/20 at 1523 For Line Patency: Peripheral IV = 5 mL; Midline or Central Line = 10 mL/lumen. If following IV push medication, administer flush at same rate as the IV push. Flush volume is determined by type of infusion therapy being given. For non-viscous solutions use: Peripheral IV = 5 mL Midline or Central Line = 10 mL/lumen For viscous solutions (i.e. blood components, parenteral nutrition, contrast media, or after obtaining blood sample) use: Peripheral IV = 10 mL Midline or Central Line = 20 mL/lumen Start: 12-18-2020 End: 12-29-2020 IntraVENous, at 125 mL/hr, CONTINUOUS, Starting on Fri12/18/20 at 1600 Start: 01-08-2019 0.9 % sodium c hloride infusion Start: 01-05-2019 10 mL, Intrave nous, EVERY 12 HOURS SCHEDULED (2 times per day), First dose on Fri01/05/19 at 2100 Start: 01-05-2019 take 10 mL intravenous route o nce 10 mL, Intravenous, PRN, Line Care, Starting Fri01/05/19 at 1858 After every IV line use Start: 01-05-2019 End: 01-06-2019 0.9 % sodium chloride infusi on sodium chloride 0.9% van ral solution 250 mL with vancomycin 1,000 mg recon soln 1.25 g (4 sources) Start: 01-13-2024 End: 03-18-2024 sodium chloride 0.9% van ral solution 250 mL with vancomycin 1,000 mg recon soln 1.25 g Indications: Tibia and fibula open fracture, right, sequela Infuse 1.25 g at 166.7 mL/hr over 90 minutes into a venous catheter every 12 hours. 140 g 01/13/2024 03/18/2024 Discontinued (Stop Taking at Discharge) Start: 01-13-2024 End: 03-09-2024 sodium chloride 0.9% van ral solution 250 mL with vancomycin 1,000 mg recon soln 1.25 g Indications: Tibia and fibula open fracture, right, sequela Infuse 1.25 g at 166.7 mL/hr over 90 minutes into a venous catheter every 12 hours. 140 g 01/13/2024 03/09/2024 Active Start: 01-12-2024 End: 01-13-2024 sodium chloride 0.9% van ral solution 250 mL with vancomycin 1,000 mg recon soln 1.25 g Indications: Tibia and fibula open fracture, right, sequela Infuse 1.25 g at 166.7 mL/hr over 90 minutes into a venous catheter every 12 hours. 140 g 01/12/2024 01/13/2024 Discontinued sodium chloride 0.9% parenteral solution 50 mL with DAPTOmycin 50 mg/mL recon soln 750 mg (2 sources) Start: 03-16-2024 End: 04-23-2024 sodium chloride 0.9% van ral solution 50 mL with DAPTOmycin 50 mg/mL recon soln 750 mg Indications: Chronic multifocal osteomyelitis of right tibia (Multi) Infuse 750 mg at 130 mL/hr over 30 minutes into a venous catheter once every 24 hours. [id number] mg 03/16/2024 04/23/2024 Suspended Start: 03-16-2024 End: 04-23-2024 sodium chloride 0.9% van ral solution 50 mL with DAPTOmycin 50 mg/mL recon soln 750 mg Indications: Chronic multifocal osteomyelitis of right tibia (Multi) Infuse 750 mg at 130 mL/hr over 30 minutes into a venous catheter once every 24 hours. 70837 mg 03/16/2024 04/23/2024 Active 150 ml vancomycin 5 mg/ml injection (4 sources) Glycopeptide Antibacterial Start: 04-28-2024 End: 04-29-2024 take 750 mg intravenously every twelve hours Start: 03-12-2024 End: 03-14-2024 take 1000 mg intravenously every twelve hours 1,000 mg, intravenous, at 200 mL/hr, Administer over 60 Minutes, Every 12 hours, First dose on Fri03/12/24 at 2200, premix bag, Dosing of this medication varies based on severity of illness. Does this patient have sepsis or concern for sepsis (probable or documented infection plus systemic manifestations of infection)? No, Suspected Indication (Select all that apply): Osteomyelitis/Septic Arthritis, Indications: Osteomyelitis/Septic Arthritis Start: 01-10-2024 take 1250 mg intrave nously every twelve hours 1,250 mg, intravenous, at 200 mL/hr, Administer over 75 Minutes, Every 12 hours, First dose (after last reorder) on Fri01/10/24 at 0930, Premix Bag, Dosing of this medication varies based on severity of illness. Does this patient have sepsis or concern for sepsis (probable or documented infection plus systemic manifestations of infection)? No, Suspected Indication (Select all that apply): Surgical Prophylaxis, Indications: Surgical Prophylaxis Start: 01-09-2024 End: 01-09-2024 1,500 mg, intravenous, at 33 3.3 mL/hr, Administer over 90 Minutes, Once, On Fri01/09/24 at 1500, For 1 dose, Premix Bag, Dosing of this medication varies based on severity of illness. Does this patient have sepsis or concern for sepsis (probable or documented infection plus systemic manifestations of infection)? No, Suspected Indication (Select all that apply): Surgical Prophylaxis, Indications: Surgical Prophylaxis vancomycin (VANCOCIN) 1,250 mg in dextrose 5 % 250 mL IVPB (2 sources) Start: 01-06-2019 End: 01-07-2019 1,250 mg (15.7 mg/kg), Intravenous, at 125 mL/hr, Administer over 120 Minutes, EVERY 12 HOURS, First dose on Fri01/06/19 at 0230 Start: 01-05-2019 End: 01-05-2019 vancomycin (VANCOCIN) 1,250 mg in dextrose 5 % 250 mL IVPB (1 source) Start: 05-09-2024 End: 05-09-2024 (1 source) Start: 04-26-2024 End: 04-26-2024 (1 source) Start: 04-26-2024 End: 04-27-2024 take 1500 mg intravenously every twelve hours Problems Active Problems Problem Classification Problem Date Documented Da te Episodic/Chronic Administrative/social admission (3 sources) Requires assistance with all daily activities; Translations: [Need for assistance with personal care] 10-17-2022 Episodic Allergic reactions (1 source) Allergy status to penicillin; Translations: [ALLERGY STATUS TO PENICILLIN] Onset: 5 Episodic Anxiety disorders (20 sources) Anxiety; Translations: [Anxiety disorder, unspecified] Onset: 6 Chronic Chronic obstructive pulmonary disease and bronchiectasis (4 sources) Chronic obstructive lung disease; Translations: [Chronic obstructive pulmonary disease, unspecified] Onset: 5 03-12-2024 Chronic Chronic ulcer of skin (9 sources) Non-pressure chronic ulcer of unspecified part of right lower leg with fat layer exposed; Translations: [Chronic ulcer of lower extremity] Onset: 2 Chronic Coagulation and hemorrhagic disorders (2 sources) Thrombocytopenia, unspecified; Translations: [Thrombocytopenia, unspecified] Onset: 1 Chronic Complication of device; implant or graft (4 sources) Infection and inflammatory reaction due to other internal prosthetic devices, implants and grafts, initial encounter; Translations: [Disorder of prosthetic joint] Onset: 1 Episodic Complications of surgical procedures or medical care (20 sources) Trauma and postoperative pulmonary insufficiency; Translations: [Acute postprocedural respiratory failure] Onset: 1 Episodic Diseases of white blood cells (2 sources) Leukemoid reaction; 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 Epilepsy; convulsions (2 sources) Epilepsy, unspecified, not intractable, without status epilepticus; Translations: [Epilepsy, unsp, not intractable, without status epilepticus] Onset: 1 Chronic Esophageal disorders (20 sources) Gastroesophageal reflux disease; Translations: [Gastro-esophageal reflux disease without esophagitis] Onset: 6 06-05-2015 Chronic Essential hypertension (20 sources) Essential hypertension; Translations: [Essential (primary) hypertension] Onset: 2 Chronic Genitourinary symptoms and ill-defined conditions (5 sources) Urinary incontinence; Translations: [Unspecified urinary incontinence] Chronic Heart valve disorders (3 sources) Heart murmur; Translations: [Cardiac murmur, unspecified] Onset: 4 11-18-2023 Episodic Hepatitis (20 sources) Chronic hepatitis C; Translations: [Chronic viral hepatitis C] Onset: 9 02-03-2019 Chronic Infective arthritis and osteomyelitis (except that caused by tuberculosis or sexually transmitted disease) (20 sources) Other acute osteomyelitis, right tibia and fibula; Translations: [Chronic osteomyelitis of right tibia] Onset: 1 Chronic Joint disorders and dislocations; trauma-related (20 sources) Arthritis of pelvis; Translations: [Traumatic arthropathy, left hip] Onset: 4 06-12-2023 Chronic Joint disorders and dislocations; trauma-related (12 sources) Traumatic arthropathy-knee; Translations: [Traumatic arthropathy, right knee] Onset: 4 06-12-2023 Chronic Mood disorders (20 sources) Depressive disorder; Translations: [Major depressive disorder, single episode, unspecified] Onset: 2 Chronic Mood disorders (3 sources) Mood disorders; Translations: [Depression, unspecified] Onset: 2 Open wounds of extremities (4 sources) 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, initial encounter; Translations: [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, initial encounter (Multi)] Onset: 5 Chronic Open wounds of extremities (20 sources) Open wound of knee, leg and ankle with tendon involvement; Translations: [Unspecified open wound, right knee, sequela] Onset: 1 Episodic Open wounds of head; neck; and trunk (1 source) Wound dehiscence 02-24-2024 Episodic Osteoarthritis (2 sources) Unspecified osteoarthritis, unspecified site; Translations: [Unspecified osteoarthritis, unspecified site] Onset: 2 Chronic Other bone disease and musculoskeletal deformities (2 sources) Avascular necrosis of bone of hip; 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] 06-12-2023 Chronic Other bone disease and musculoskeletal deformities (2 sources) Idiopathic aseptic necrosis of left femur; 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)] Onset: 4 Chronic Other bone disease and musculoskeletal deformities (1 source) History of amputation of right leg through femur; Translations: [Acquired absence of right leg above knee] 05-08-2024 Chronic Other bone disease and musculoskeletal deformities (2 sources) Acquired absence of right leg above knee; Translations: [Acquired absence of right leg above knee (Multi)] Onset: 5 Chronic Other circulatory disease (2 sources) Presence of other vascular implants and grafts; Translations: [Presence of other vascular implants and grafts] Onset: 2 Chronic Other circulatory disease (1 source) Past history of procedure; Translations: [Presence of other vascular implants and grafts] 03-17-2024 Chronic Other connective tissue disease (2 sources) Presence of other bone and tendon implants; Translations: [Presence of other bone and tendon implants] Onset: 2 Chronic Other connective tissue disease (3 sources) History of repair of hip joint; Translations: [Presence of left artificial hip joint] 09-19-2023 Chronic Other connective tissue disease (5 sources) Pain in right lower limb; Translations: [Pain in right leg] Episodic Other diseases of veins and lymphatics (2 sources) Lymphedema, not elsewhere classified; Translations: [Lymphedema, not elsewhere classified] Onset: 2 Chronic Other diseases of veins and lymphatics (2 sources) Lymphedema; Translations: [Lymphedema, not elsewhere classified] Chronic Other fractures (3 sources) Fracture of acetabulum; Translations: [Unspecified fracture of left acetabulum, initial encounter for closed fracture] 05-13-2022 Episodic Other fractures (1 source) Closed fracture of posterior wall of left acetabulum; Translations: [Displaced fracture of posterior wall of left acetabulum, sequela] 06-12-2023 Episodic Other gastrointestinal disorders (2 sources) Gastrostomy status; Translations: [Gastrostomy status] Onset: 1 Chronic Other gastrointestinal disorders (1 source) Constipation; Translations: [Constipation, unspecified] 03-31-2024 Episodic Other gastrointestinal disorders (2 sources) Constipation, unspecified; Translations: [Constipation, unspecified] Onset: 5 Episodic Other injuries and conditions due to external causes (2 sources) H/O: fracture; Translations: [Personal history of (healed) traumatic fracture] 11-29-2022 Episodic Other injuries and conditions due to external causes (1 source) Personal history of (healed) traumatic fracture; Translations: [Personal history of traumatic fracture] 12-17-2022 Episodic Other injuries and conditions due to external causes (2 sources) Excoriation of skin; Translations: [Other injury of unspecified body region, initial encounter] 04-24-2023 Episodic Other nervous system disorders (20 sources) Chronic pain syndrome; Translations: [Chronic pain syndrome] Onset: 2 Chronic Other nervous system disorders (2 sources) Polyneuropathy, unspecified; Translations: [Polyneuropathy, unspecified] Onset: 2 Chronic Other nervous system disorders (4 sources) Other chronic pain; Translations: [Other chronic pain] Onset: 2 Chronic Other nervous system disorders (1 source) Carpal tunnel syndrome of right wrist; Translations: [Carpal tunnel syndrome, right upper limb] 11-18-2023 Chronic Other nervous system disorders (3 sources) Postoperative pain ; Translations: [Other acute postprocedural pain] Onset: 5 01-12-2024 Episodic Other non-traumatic joint disorders (3 sources) Pain in left knee; Translations: [Pain in left knee] 03-30-2021 Episodic Other non-traumatic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 Globulin (S) [Mass/Vol] 4.0 g/dL High 1.5 - 3.8 [facility] Comment on above: Performed By: #### 2 78720 #### [facility],[address] [place] [address] 26768 Glucose [Mass/Vol] 112 mg/dL High 74 - 106 [facility] Comment on above: Performed By: #### 2 67480 #### [facility],[address] [place] [address] 49281 Potassium [Moles/Vol] 4.0 mmol/L Normal 3.5 - 5.1 [facility] Comment on above: Performed By: #### 2 23055 #### [facility],[address] [place] [address] 92332 Protein [Mass/Vol] 6.9 g/dL Normal 6.4 - 8.2 [facility] Comment on above: Performed By: #### 2 93878 #### [facility],[address] [place] [address] 40073 Sodium [Moles/Vol] 138 mmol/L Normal 136 - 145 [facility] Comment on above: Performed By: #### 2 96879 #### [facility],[address] [place] [address] 31064 Urea nitrogen [Mass/Vol] 11 mg/dL Normal 7 - 18 [facility] Comment on above: Performed By: #### 2 65786 #### [facility],[address] [place] [address] 18232 CBC W/Diff, Automatedon 05-19 PATH REV Reviewed Normal [facility] Comment on above: Result Comment: SEE REPORT IN PATIENT'S EMR AMENDED REPORT 06/07/24 1516 PATH REV previously reported as: June rosita Performed By: #### L 500.2500, L100.0100 #### [facility] [address] [place], [address] CK [CCL]on 06-04-2024 CK [Catalytic activity/Vol] 86 U/L Normal 42-196 [facility] Comment on above: Result Comment: [facility] [address] [place] [address] Emiliano Pace III, M.D. [id number] Performed By: #### 2 63428 #### [facility],[address] [place] [address] 56480 C-REACTIVE PROTEINon 025 CRP 5.52 mg/dl High 0.00 - 0.90 [facility] Comment on above: Performed By: #### 2 67867 #### [facility],[address] [place] [address] 90511 CBC + DIFFon 06-03-2024 ANISO 1+ Normal [facility] Comment on above: Performed By: #### 2 29479 #### [facility],[address] [place] [address] 20893 Baso # 0.03 x10EE3/UL Normal 0.00 - 0.10 [facility] Comment on above: Performed By: #### 2 23155 #### [facility],[address] [place] [address] 97482 Basophils/100 WBC (Bld) 0.4 % Normal 0.0 - 2.0 [facility] Comment on above: Performed By: #### 2 09566 #### [facility],[address] [place] [address] 85994 CBC + DIFF Normal [facility] Comment on above: Result Comment: CBC- COMPLETE BLOOD COUNT Performed By: #### 2 92537 #### [facility],[address] [place] [address] 96336 CELL COUNT 100 Normal [facility] Comment on above: Performed By: #### 2 19038 #### [facility],[address] [place] [address] 86337 EO 7.0 % Normal 0.0 - 7.0 [facility] Comment on above: Performed By: #### 2 69156 #### [facility],[address] [place] [address] 79168 EO # 0.48 x10EE3/UL Normal 0.00 - 0.50 [facility] Comment on above: Performed By: #### 2 99162 #### [facility],[address] [place] [address] 61828 Eosinophils/100 WBC (Bld) 6.7 % Normal 0.0 - 7.0 [facility] Comment on above: Performed By: #### 2 01315 #### [facility],[address] [place] [address] 74160 Erythrocyte distribution width (RBC) [Ratio] 20.5 % High 12.0 - 15.6 [facility] Comment on above: Performed By: #### 2 38086 #### [facility],[address] [place] [address] 31699 Hematocrit (Bld) [Volume fraction] 30.1 % Low 34.0 - 46.0 [facility] Comment on above: Performed By: #### 2 10731 #### [facility],[address] [place] [address] 82102 Hemoglobin (Bld) [Mass/Vol] 9.5 g/dL Low 12.0 - 16.0 [facility] Comment on above: Performed By: #### 2 95414 #### [facility],[address] [place] [address] 86934 HYPOCHROM 1+ Normal [facility] Comment on above: Performed By: #### 2 09242 #### [facility],[address] [place] [address] 73301 Lymph # 3.63 x10EE3/UL High 0.80 - 2.80 [facility] Comment on above: Performed By: #### 2 05461 #### [facility],[address] [place] [address] 96173 Lymphocytes/100 WBC (Bld) 50.4 % High 20.0 - 45.0 [facility] Comment on above: Performed By: #### 2 03474 #### [facility],[address] [place] [address] 39224 Lymphocytes/100 WBC (Bld) 45 % Normal 20 - 45 [facility] Comment on above: Performed By: #### 2 80787 #### [facility],[address] [place] [address] MANUAL DIFF SEE BELOW Normal [facility] Comment on above: Performed By: #### 2 89240 #### [facility],[address] [place] [address] MCH (RBC) [Entitic mass] 25 pg Low 27 - 33 [facility] Comment on above: Performed By: #### 2 80397 #### [facility],[address] [place] [address] MCHC 31 X10 3 Low 32 - 36 [facility] Comment on above: Performed By: #### 2 06038 #### [facility],[address] [place] [address] MCV (RBC) [Entitic vol] 79 fL Low 80 - 99 [facility] Comment on above: Performed By: #### 2 68111 #### [facility],[address] [place] [address] MICROCYTES 1+ Normal [facility] Comment on above: Performed By: #### 2 77907 #### [facility],[address] [place] [address] Harnett # 0.90 x10EE3/UL Normal 0.20 - 1.00 [facility] Comment on above: Performed By: #### 2 64692 #### [facility],[address] [place] [address] MONOS 15 % High 0 - 10 [facility] Comment on above: Performed By: #### 2 16203 #### [facility],[address] [place] [address] MONOS % 12.5 % High 0.0 - 10.0 [facility] Comment on above: Performed By: #### 2 64170 #### [facility],[address] [place] [address] Morphology David (Bld) [Interp] SEE BELOW Normal [facility] Comment on above: Performed By: #### 2 02938 #### [facility],[address] [place] [address] 32991 Neut # 2.16 x10EE3/UL Normal 1.50 - 7.10 [facility] Comment on above: Performed By: #### 2 08059 #### [facility],[address] [place] [address] Neutrophils/100 WBC (Bld) 30.0 % Low 46.0 - 76.0 [facility] Comment on above: Performed By: #### 2 94178 #### [facility],[address] [place], [place] [id number] PLATELET 858 x10EE3/UL High 150 - 450 [facility] Comment on above: Performed By: #### 2 44200 #### [facility],[address] [place] [address] Platelet mean volume (Bld) [Entitic vol] 8.4 fL Normal 6.6 - 10.5 [facility] Comment on above: Result Comment: AUTO MATED DIFFERENTIAL Performed By: #### 2 22633 #### [facility],[address] [place] [address] 55911 PLT EST INCREASED Normal [facility] Comment on above: Performed By: #### 2 22419 #### [facility],[address] [place] [address] 60300 POIKILO 1+ Normal [facility] Comment on above: Performed By: #### 2 80546 #### [facility],[address] [place] [address] 02607 RBC 3.83 x 10EE6/UL Low 4.10 - 5.30 [facility] Comment on above: Performed By: #### 2 52226 #### [facility],[address] [place] [address] SEGS 33 % Low 46 - 76 [facility] Comment on above: Performed By: #### 2 68040 #### [facility],[address] [place] [address] 06786 WBC 7.2 x 10EE3/UL Normal 4.5 - 10.8 [facility] Comment on above: Performed By: #### 2 08532 #### [facility],[address] [place] [address] Other 2+ TARGET CELLS Normal [facility] Comment on above: Result Comment: 1+ B URR CELLS Performed By: #### 2 49062 #### [facility],[address] [place] [address] CMP with eGFRon 06-03-2024 AGE 54 years Normal [facility] Comment on above: Performed By: #### 2 53009 #### [facility],[address] [place] [address] Albumin [Mass/Vol] 3.1 g/dL Low 3.4 - 5.0 [facility] Comment on above: Performed By: #### 2 43719 #### [facility],[address] [place] [address] Albumin/Globulin [Mass ratio] 0.7 {ratio} Low 0.9 - 1.6 [facility] Comment on above: Performed By: #### 2 29671 #### [facility],[address] [place] [address] 74864 ALK PHOS 144 U/L High 46 - 116 [facility] Comment on above: Performed By: #### 2 50628 #### [facility],[address] [place] [address] 33662 ALT [Catalytic activity/Vol] 35 U/L Normal 16 - 63 [facility] Comment on above: Performed By: #### 2 95809 #### [facility],[address],[place] [address] Anion gap [Moles/Vol] 13 mmol/L Normal 10 - 20 [facility] Comment on above: Performed By: #### 2 44122 #### [facility],[address] [place] [address] 10887 AST [Catalytic activity/Vol] 33 U/L Normal 13 - 39 [facility] Comment on above: Performed By: #### 2 51237 #### [facility],[address] [place] [address] 44921 B/C RATIO 5 ratio Normal 0 - 30 [facility] Comment on above: Performed By: #### 2 87983 #### [facility],[address] [place] [address] 04776 Bilirubin [Mass/Vol] 0.2 mg/dL Normal 0.2 - 1.0 [facility] Comment on above: Performed By: #### 2 20436 #### [facility],[address] [place] [address] 28010 Calcium [Mass/Vol] 9.5 mg/dL Normal 8.5 - 10.1 [facility] Comment on above: Performed By: #### 2 14034 #### [facility],[address] [place] [address] 05214 Chloride [Moles/Vol] 102 mmol/L Normal 98 - 107 [facility] Comment on above: Performed By: #### 2 69389 #### [facility],[address] [place] [address] 42234 CMP with eGFR Normal [facility] Comment on above: Result Comment: COMP REHENSIVE METABOLIC PANEL Performed By: #### 2 66732 #### [facility],[address] [place] [address] 05891 CO2 [Moles/Vol] 28.4 mmol/L Normal 21.0 - 32.0 [facility] Comment on above: Performed By: #### 2 96644 #### [facility],[address] [place] [address] 65401 Creatinine [Mass/Vol] 0.74 mg/dL Normal 0.55 - 1.02 [facility] Comment on above: Performed By: #### 2 09229 #### [facility],[address] [place] [address] GFR/1.73 sq M.predicted among non-blacks MDRD (S/P/Bld) [Vol rate/Area] mL/min/{1.73_m2} Normal 60 - 999 [facility] Comment on above: Performed By: #### 2 63904 #### [facility],[address] [place] [address] Result Comment: ACCO RDING TO THE NATIONAL KIDNEY DISEASE EDUCATION PROGRAM(NKDE), A NORMAL eGFR IS A VALUE GREATER THAN OR EQUAL TO 60 ML/MIN/1.73 SQ METERS. CHRONIC KIDNEY DISEASE: <60mL/MIN/1.73 SQ METERS KIDNEY FAILURE: <15mL/MIN/1.73 SQ METERS THIS TEST SHOULD ONLY BE USED FOR PATIENTS 18 YEARS OF AGE AND OLDER. Globulin (S) [Mass/Vol] 4.6 g/dL High 1.5 - 3.8 [facility] Comment on above: Performed By: #### 2 81766 #### [facility],[address] [place] [address] Glucose [Mass/Vol] 90 mg/dL Normal 74 - 106 [facility] Comment on above: Performed By: #### 2 12969 #### [facility],[address] [place], [place] [id number] Potassium [Moles/Vol] 4.2 mmol/L Normal 3.5 - 5.1 [facility] Comment on above: Performed By: #### 2 18157 #### [facility],[address] [place], [place] [id number] Protein [Mass/Vol] 7.7 g/dL Normal 6.4 - 8.2 [facility] Comment on above: Performed By: #### 2 26060 #### [facility],[address] [place] [address] 09246 Sodium [Moles/Vol] 139 mmol/L Normal 136 - 145 [facility] Comment on above: Performed By: #### 2 88733 #### [facility],[address] [place] [address] 60012 Urea nitrogen [Mass/Vol] 4 mg/dL Low 7 - 18 [facility] Comment on above: Performed By: #### 2 54969 #### [facility],[address] [place] [address] 99015 CK [CCL]on 05-28-2024 CK [Catalytic activity/Vol] 74 U/L Normal 42-196 [facility] Comment on above: Result Comment: [facility] [address] [place] [address] Emiliano Pace III, M.D. [id number] Performed By: #### 2 77282 #### [facility],[address] [place] [address] 45755 C-REACTIVE PROTEINon 025 CRP 5.01 mg/dl High 0.00 - 0.90 [facility] Comment on above: Performed By: #### 2 09689 #### [facility],[address] [place] [address] 81553 CBC + DIFFon 05-27-2024 Baso # 0.02 x10EE3/UL Normal 0.00 - 0.10 [facility] Comment on above: Performed By: #### 2 57915 #### [facility],[address] [place] [address] 31493 Basophils/100 WBC (Bld) 0.3 % Normal 0.0 - 2.0 [facility] Comment on above: Performed By: #### 2 96996 #### [facility],[address] [place] [address] 89734 CBC + DIFF Normal [facility] Comment on above: Result Comment: CORRECTED REPORT CBC-COMPLETE BLOOD COUNT Performed By: #### 2 79675 #### [facility],[address] [place] [address] 75467 EO 1.0 % Normal 0.0 - 7.0 [facility] Comment on above: Performed By: #### 2 17700 #### [facility],[address] [place] [address] 46762 EO # 0.44 x10EE3/UL Normal 0.00 - 0.50 [facility] Comment on above: Performed By: #### 2 40520 #### [facility],[address] [place] [address] 91754 Eosinophils/100 WBC (Bld) 6.7 % Normal 0.0 - 7.0 [facility] Comment on above: Performed By: #### 2 80611 #### [facility],[address] [place], [place] [id number] ERROR DUE TO MANUAL DIFF Normal [facility] Comment on above: Result Comment: NEED ED A MANUAL DIFF PERFORMED Performed By: #### 2 06905 #### [facility],[address] [place] [address] 94642 Erythrocyte distribution width (RBC) [Ratio] 19.5 % High 12.0 - 15.6 [facility] Comment on above: Performed By: #### 2 97154 #### [facility],[address] [place] [address] 28079 Hematocrit (Bld) [Volume fraction] 26.5 % Low 34.0 - 46.0 [facility] Comment on above: Performed By: #### 2 49385 #### [facility],[address] [place] [address] 02914 Hemoglobin (Bld) [Mass/Vol] 8.8 g/dL Low 12.0 - 16.0 [facility] Comment on above: Performed By: #### 2 79835 #### [facility],[address] [place] [address] Lymph # 3.28 x10EE3/UL High 0.80 - 2.80 [facility] Comment on above: Performed By: #### 2 18142 #### [facility],[address] [place] [address] Lymphocytes/100 WBC (Bld) 49.4 % High 20.0 - 45.0 [facility] Comment on above: Performed By: #### 2 76131 #### [facility],[address] [place] [address] Lymphocytes/100 WBC (Bld) 53 % High 20 - 45 [facility] Comment on above: Performed By: #### 2 58761 #### [facility],[address] [place] [address] MANUAL DIFF SEE BELOW Normal [facility] Comment on above: Performed By: #### 2 84729 #### [facility],[address] [place] [address] MCH (RBC) [Entitic mass] 25 pg Low 27 - 33 [facility] Comment on above: Performed By: #### 2 56614 #### [facility],[address] [place] [address] MCHC 33 X10 3 Normal 32 - 36 [facility] Comment on above: Performed By: #### 2 10218 #### [facility],[address] [place], [place] [id number] MCV (RBC) [Entitic vol] 76 fL Low 80 - 99 [facility] Comment on above: Performed By: #### 2 28419 #### [facility],[address] [place] [address] Harnett # 0.58 x10EE3/UL Normal 0.20 - 1.00 [facility] Comment on above: Performed By: #### 2 99435 #### [facility],[address] [place] [address] 23659 MONOS 2 % Normal 0 - 10 [facility] Comment on above: Performed By: #### 2 32983 #### [facility],[address] [place] [address] 01677 MONOS % 8.7 % Normal 0.0 - 10.0 [facility] Comment on above: Performed By: #### 2 08138 #### [facility],[address] [place] [address] 20416 Morphology David (Bld) [Interp] NORMAL Normal [facility] Comment on above: Result Comment: ==== FOLLOWING RESULTS REPORTED IN ERROR MANUAL DIFF N/A MORPHOLOGY N/A Performed By: #### 2 98223 #### [facility],[address] [place] [address] 74138 Neut # 2.32 x10EE3/UL Normal 1.50 - 7.10 [facility] Comment on above: Performed By: #### 2 06453 #### [facility],[address] [place] [address] 65119 Neutrophils/100 WBC (Bld) 34.9 % Low 46.0 - 76.0 [facility] Comment on above: Performed By: #### 2 93303 #### [facility],[address] [place] [address] 36768 PLATELET 451 x10EE3/UL High 150 - 450 [facility] Comment on above: Performed By: #### 2 89491 #### [facility],[address] [place] [address] 38681 Platelet mean volume (Bld) [Entitic vol] 9.2 fL Normal 6.6 - 10.5 [facility] Comment on above: Result Comment: AUTO MATED DIFFERENTIAL Performed By: #### 2 87615 #### [facility],[address] [place] [address] 42406 RBC 3.48 x 10EE6/UL Low 4.10 - 5.30 [facility] Comment on above: Performed By: #### 2 36600 #### [facility],[address] [place] [address] SEGS 44 % Low 46 - 76 [facility] Comment on above: Performed By: #### 2 63257 #### [facility],[address] [place] [address] 37650 WBC 6.6 x 10EE3/UL Normal 4.5 - 10.8 [facility] Comment on above: Performed By: #### 2 58369 #### [facility],[address] [place], [place] [id number] CMP with eGFRon 05-27-2024 AGE 54 years Normal [facility] Comment on above: Performed By: #### 2 91212 #### [facility],[address] [place] [address] 90362 Albumin [Mass/Vol] 2.8 g/dL Low 3.4 - 5.0 [facility] Comment on above: Performed By: #### 2 85449 #### [facility],[address] [place] [address] 07503 Albumin/Globulin [Mass ratio] 0.7 {ratio} Low 0.9 - 1.6 [facility] Comment on above: Performed By: #### 2 67393 #### [facility],[address] [place] [address] 00611 ALK PHOS 152 U/L High 46 - 116 [facility] Comment on above: Performed By: #### 2 29197 #### [facility],[address] [place] [address] 64069 ALT [Catalytic activity/Vol] 29 U/L Normal 16 - 63 [facility] Comment on above: Performed By: #### 2 39874 #### [facility],[address] [place] [address] 30595 Anion gap [Moles/Vol] 9 mmol/L Low 10 - 20 [facility] Comment on above: Performed By: #### 2 69684 #### [facility],[address] [place] [address] 36913 AST [Catalytic activity/Vol] 33 U/L Normal 13 - 39 [facility] Comment on above: Performed By: #### 2 80970 #### [facility],[address] [place] [address] 09085 B/C RATIO 12 ratio Normal 0 - 30 [facility] Comment on above: Performed By: #### 2 05310 #### [facility],[address] [place] [address] 43087 Bilirubin [Mass/Vol] 0.2 mg/dL Normal 0.2 - 1.0 [facility] Comment on above: Performed By: #### 2 49521 #### [facility],[address] [place] [address] 60960 Calcium [Mass/Vol] 8.9 mg/dL Normal 8.5 - 10.1 [facility] Comment on above: Performed By: #### 2 54820 #### [facility],[address] [place] [address] 92389 Chloride [Moles/Vol] 100 mmol/L Normal 98 - 107 [facility] Comment on above: Performed By: #### 2 08489 #### [facility],[address] [place] [address] 29997 CMP with eGFR Normal [facility] Comment on above: Result Comment: COMP REHENSIVE METABOLIC PANEL Performed By: #### 2 49917 #### [facility],[address] [place] [address]17 CO2 [Moles/Vol] 30.9 mmol/L Normal 21.0 - 32.0 [facility] Comment on above: Performed By: #### 2 53110 #### [address] [address] Creatinine [Mass/Vol] 0.67 mg/dL Normal 0.55 - 1.02 [facility] Comment on above: Performed By: #### 2 78735 #### [facility],[address] [place] [address] GFR/1.73 sq M.predicted among non-blacks MDRD (S/P/Bld) [Vol rate/Area] mL/min/{1.73_m2} Normal 60 - 999 [facility] Comment on above: Performed By: #### 2 38673 #### [address] [address] Result Comment: ACCO RDING TO THE NATIONAL KIDNEY DISEASE EDUCATION PROGRAM(NKDE), A NORMAL eGFR IS A VALUE GREATER THAN OR EQUAL TO 60 ML/MIN/1.73 SQ METERS. CHRONIC KIDNEY DISEASE: <60mL/MIN/1.73 SQ METERS KIDNEY FAILURE: <15mL/MIN/1.73 SQ METERS THIS TEST SHOULD ONLY BE USED FOR PATIENTS 18 YEARS OF AGE AND OLDER. Globulin (S) [Mass/Vol] 4.2 g/dL High 1.5 - 3.8 [facility] Comment on above: Performed By: #### 2 17049 #### [address] [address] Glucose [Mass/Vol] 77 mg/dL Normal 74 - 106 [facility] Comment on above: Performed By: #### 2 04346 #### [address] [address] Potassium [Moles/Vol] 4.3 mmol/L Normal 3.5 - 5.1 [facility] Comment on above: Performed By: #### 2 57019 #### [facility],[address] [place] [address]39 Protein [Mass/Vol] 7.0 g/dL Normal 6.4 - 8.2 [facility] Comment on above: Performed By: #### 2 16740 #### [facility],[address] [place] [address] 87472 Sodium [Moles/Vol] 136 mmol/L Normal 136 - 145 [facility] Comment on above: Performed By: #### 2 77307 #### [facility],[address] [place] [address] 70805 Urea nitrogen [Mass/Vol] 8 mg/dL Normal 7 - 18 [facility] Comment on above: Performed By: #### 2 95234 #### [facility],[address] [place] [address] 11224 CK [CCL]on 05-21-2024 CK [Catalytic activity/Vol] 126 U/L Normal 42-196 [facility] Comment on above: Result Comment: [facility] [address] [place] [address] Emiliano Pace III, M.D. [id number] Performed By: #### 2 97349 #### [facility],[address] [place] [address] 28018 C-REACTIVE PROTEINon 025 CRP 8.36 mg/dl High 0.00 - 0.90 [facility] Comment on above: Performed By: #### 2 45084 #### [facility],[address] [place] [address] 24844 CBC + DIFFon 05-20-2024 Baso # 0.03 x10EE3/UL Normal 0.00 - 0.10 [facility] Comment on above: Performed By: #### 2 11684 #### [facility],[address] [place] [address] 08842 Basophils/100 WBC (Bld) 0.3 % Normal 0.0 - 2.0 [facility] Comment on above: Performed By: #### 2 41158 #### [facility],[address] [place] [address] 26407 CBC + DIFF Normal [facility] Comment on above: Result Comment: CBC- COMPLETE BLOOD COUNT Performed By: #### 2 91856 #### [facility],[address] [place] [address] 68137 EO # 0.70 x10EE3/UL High 0.00 - 0.50 [facility] Comment on above: Performed By: #### 2 03363 #### [facility],[address] [place] [address] 30119 Eosinophils/100 WBC (Bld) 8.2 % High 0.0 - 7.0 [facility] Comment on above: Performed By: #### 2 41759 #### [facility],[address] [place], [place] [address] Erythrocyte distribution width (RBC) [Ratio] 18.1 % High 12.0 - 15.6 [facility] Comment on above: Performed By: #### 2 29401 #### [facility],[address] [place] [address] 73246 Hematocrit (Bld) [Volume fraction] 25.0 % Low 34.0 - 46.0 [facility] Comment on above: Performed By: #### 2 76113 #### [facility],[address] [place] [address] 31233 Hemoglobin (Bld) [Mass/Vol] 8.1 g/dL Low 12.0 - 16.0 [facility] Comment on above: Performed By: #### 2 66829 #### [facility],[address] [place] [address] 43709 Lymph # 3.10 x10EE3/UL High 0.80 - 2.80 [facility] Comment on above: Performed By: #### 2 65280 #### [facility],[address] [place] [address] 22599 Lymphocytes/100 WBC (Bld) 36.2 % Normal 20.0 - 45.0 [facility] Comment on above: Performed By: #### 2 79752 #### [facility],[address] [place] [address] MANUAL DIFF N/A Normal [facility] Comment on above: Performed By: #### 2 65159 #### [facility],[address] [place] [address] MCH (RBC) [Entitic mass] 25 pg Low 27 - 33 [facility] Comment on above: Performed By: #### 2 01780 #### [facility],[address] [place] [address] MCHC 32 X10 3 Normal 32 - 36 [facility] Comment on above: Performed By: #### 2 09548 #### [place] [address] MCV (RBC) [Entitic vol] 79 fL Low 80 - 99 [facility] Comment on above: Performed By: #### 2 41106 #### [facility],[address] [place] [address] Harnett # 0.86 x10EE3/UL Normal 0.20 - 1.00 [facility] Comment on above: Performed By: #### 2 76240 #### [facility],[address] [place] [address] MONOS % 10.1 % High 0.0 - 10.0 [facility] Comment on above: Performed By: #### 2 84982 #### [address] [address] Morphology David (Bld) [Interp] N/A Normal [facility] Comment on above: Performed By: #### 2 24585 #### [facility],[address] [place] [address] Neut # 3.88 x10EE3/UL Normal 1.50 - 7.10 [facility] Comment on above: Performed By: #### 2 76799 #### [facility],[address] [place] [address] 90103 Neutrophils/100 WBC (Bld) 45.2 % Low 46.0 - 76.0 [facility] Comment on above: Performed By: #### 2 31600 #### [facility],[address] [place] [address] 17391 PLATELET 533 x10EE3/UL High 150 - 450 [facility] Comment on above: Performed By: #### 2 62081 #### [facility],[address] [place] [address] 32037 Platelet mean volume (Bld) [Entitic vol] 9.2 fL Normal 6.6 - 10.5 [facility] Comment on above: Result Comment: AUTO MATED DIFFERENTIAL Performed By: #### 2 79561 #### [facility],[address] [place] [address] 67142 RBC 3.18 x 10EE6/UL Low 4.10 - 5.30 [facility] Comment on above: Performed By: #### 2 75755 #### [facility],[address] [place] [address] 25181 WBC 8.6 x 10EE3/UL Normal 4.5 - 10.8 [facility] Comment on above: Performed By: #### 2 38269 #### [facility],[address] [place] [address]7436 CMP with eGFRon 05-20-2024 AGE 54 years Normal [facility] Comment on above: Performed By: #### 2 41414 #### [facility],[address] [place] [address] 96034 Albumin [Mass/Vol] 2.7 g/dL Low 3.4 - 5.0 [facility] Comment on above: Performed By: #### 2 93545 #### [facility],[address] [place] [address] 91590 Albumin/Globulin [Mass ratio] 0.7 {ratio} Low 0.9 - 1.6 [facility] Comment on above: Performed By: #### 2 91623 #### [facility],[address] [place] [address] 52903 ALK PHOS 151 U/L High 46 - 116 [facility] Comment on above: Performed By: #### 2 57286 #### [facility],[address] [place], [place] [id number] ALT [Catalytic activity/Vol] 29 U/L Normal 16 - 63 [facility] Comment on above: Performed By: #### 2 48656 #### [facility],[address] [place] [address] Anion gap [Moles/Vol] 11 mmol/L Normal 10 - 20 [facility] Comment on above: Performed By: #### 2 50430 #### [facility],[address] [place], [place] [address] AST [Catalytic activity/Vol] 25 U/L Normal 13 - 39 [facility] Comment on above: Performed By: #### 2 48611 #### [facility],[address] [place], [place] [address] B/C RATIO 13 ratio Normal 0 - 30 [facility] Comment on above: Performed By: #### 2 47880 #### [facility],[address] [place] [address] 04793 Bilirubin [Mass/Vol] 0.2 mg/dL Normal 0.2 - 1.0 [facility] Comment on above: Performed By: #### 2 84954 #### [facility],[address] [place] [address] 26007 Calcium [Mass/Vol] 8.4 mg/dL Low 8.5 - 10.1 [facility] Comment on above: Performed By: #### 2 85740 #### [facility],[address] [place] [address] 17808 Chloride [Moles/Vol] 100 mmol/L Normal 98 - 107 [facility] Comment on above: Performed By: #### 2 84763 #### [facility],[address] [place] [address] 50153 CMP with eGFR Normal [facility] Comment on above: Result Comment: COMP REHENSIVE METABOLIC PANEL Performed By: #### 2 54400 #### [place] [address] CO2 [Moles/Vol] 25.4 mmol/L Normal 21.0 - 32.0 [facility] Comment on above: Performed By: #### 2 02372 #### [facility],[address] [place] [address] Creatinine [Mass/Vol] 0.71 mg/dL Normal 0.55 - 1.02 [facility] Comment on above: Performed By: #### 2 07899 #### [facility],[address] [place], [place] [address] GFR/1.73 sq M.predicted among non-blacks MDRD (S/P/Bld) [Vol rate/Area] mL/min/{1.73_m2} Normal 60 - 999 [facility] Comment on above: Performed By: #### 2 83076 #### [place] [address] Result Comment: ACCO RDING TO THE NATIONAL KIDNEY DISEASE EDUCATION PROGRAM(NKDE), A NORMAL eGFR IS A VALUE GREATER THAN OR EQUAL TO 60 ML/MIN/1.73 SQ METERS. CHRONIC KIDNEY DISEASE: <60mL/MIN/1.73 SQ METERS KIDNEY FAILURE: <15mL/MIN/1.73 SQ METERS THIS TEST SHOULD ONLY BE USED FOR PATIENTS 18 YEARS OF AGE AND OLDER. Globulin (S) [Mass/Vol] 4.0 g/dL High 1.5 - 3.8 [facility] Comment on above: Performed By: #### 2 53128 #### [place] [id number] Glucose [Mass/Vol] 88 mg/dL Normal 74 - 106 [facility] Comment on above: Performed By: #### 2 97328 #### [facility],[address] [place] [address] 36312 Potassium [Moles/Vol] 4.3 mmol/L Normal 3.5 - 5.1 [facility] Comment on above: Performed By: #### 2 83505 #### [facility],[address] [place] [address] 43784 Protein [Mass/Vol] 6.7 g/dL Normal 6.4 - 8.2 [facility] Comment on above: Performed By: #### 2 65236 #### [facility],[address] [place] [address] 61734 Sodium [Moles/Vol] 132 mmol/L Low 136 - 145 [facility] Comment on above: Performed By: #### 2 72983 #### [facility],[address] [place] [address] 01681 Urea nitrogen [Mass/Vol] 9 mg/dL Normal 7 - 18 [facility] Comment on above: Performed By: #### 2 42800 #### [facility],[address] [place] [address] 41250 CULTURE CATHETER TIP [AULTMA N]on 05-19-2024 CULTURE CATHETER TIP [EFRA] CULTURE CATHETER TIP [EFRA] _CATHETER TIP CULTURE_ GO TO [facility] REPORTS AND ATTACHMENTS FOR SCANNED REPORT 05/24/24.0846.DNP.COMPLET E Normal [facility] Comment on above: Performed By: #### 2 73225 #### [address] [address] CPKon 05-14-2024 CPK Normal [facility] Comment on above: Result Comment: SEE SCANNED REPORT Performed By: #### 2 06450 #### [facility],[address] [place] [address] 48517 C-REACTIVE PROTEINon 025 CRP 3.67 mg/dl High 0.00 - 0.90 [facility] Comment on above: Performed By: #### 2 67275 #### [facility],[address] [place] [address] 66267 CBC + DIFFon 05-13-2024 Baso # 0.02 x10EE3/UL Normal 0.00 - 0.10 [facility] Comment on above: Performed By: #### 2 49045 #### [facility],[address] [place] [address] 80835 Basophils/100 WBC (Bld) 0.3 % Normal 0.0 - 2.0 [facility] Comment on above: Performed By: #### 2 82094 #### [facility],[address] [place] [address] 23002 CBC + DIFF Normal [facility] Comment on above: Result Comment: CBC- COMPLETE BLOOD COUNT Performed By: #### 2 93461 #### [facility],[address] [place] [address] 05498 EO # 0.70 x10EE3/UL High 0.00 - 0.50 [facility] Comment on above: Performed By: #### 2 09996 #### [facility],[address] [place] [address] 96211 Eosinophils/100 WBC (Bld) 8.9 % High 0.0 - 7.0 [facility] Comment on above: Performed By: #### 2 24045 #### [facility],[address] [place] [address] 75235 Erythrocyte distribution width (RBC) [Ratio] 19.2 % High 12.0 - 15.6 [facility] Comment on above: Performed By: #### 2 79671 #### [facility],[address] [place] [address] 35336 Hematocrit (Bld) [Volume fraction] 28.0 % Low 34.0 - 46.0 [facility] Comment on above: Performed By: #### 2 93657 #### [facility],[address] [place] [address] 46565 Hemoglobin (Bld) [Mass/Vol] 8.4 g/dL Low 12.0 - 16.0 [facility] Comment on above: Performed By: #### 2 45534 #### [facility],[address] [place], [place] [address] Lymph # 2.57 x10EE3/UL Normal 0.80 - 2.80 [facility] Comment on above: Performed By: #### 2 55862 #### [facility],[address] [place], [place] [address] Lymphocytes/100 WBC (Bld) 32.4 % Normal 20.0 - 45.0 [facility] Comment on above: Performed By: #### 2 65274 #### [facility],[address] [place], [place] [address] MANUAL DIFF N/A Normal [facility] Comment on above: Performed By: #### 2 80441 #### [facility],[address] [place] [address] 78728 MCH (RBC) [Entitic mass] 24 pg Low 27 - 33 [facility] Comment on above: Performed By: #### 2 20773 #### [facility],[address] [place] [address] 69681 MCHC 30 X10 3 Low 32 - 36 [facility] Comment on above: Performed By: #### 2 54007 #### [facility],[address] [place] [address] 41424 MCV (RBC) [Entitic vol] 81 fL Normal 80 - 99 [facility] Comment on above: Performed By: #### 2 68093 #### [facility],[address] [place] [address] 95505 Harnett # 0.56 x10EE3/UL Normal 0.20 - 1.00 [facility] Comment on above: Performed By: #### 2 62864 #### [facility],[address] [place] [address] 70707 MONOS % 7.1 % Normal 0.0 - 10.0 [facility] Comment on above: Performed By: #### 2 94876 #### [facility],[address] [place] [address] 66682 Morphology David (Bld) [Interp] N/A Normal [facility] Comment on above: Performed By: #### 2 57356 #### [facility],[address] [place] [address] 49740 Neut # 4.08 x10EE3/UL Normal 1.50 - 7.10 [facility] Comment on above: Performed By: #### 2 43112 #### [facility],[address] [place] [address] 22874 Neutrophils/100 WBC (Bld) 51.4 % Normal 46.0 - 76.0 [facility] Comment on above: Performed By: #### 2 52313 #### [facility],[address] [place] [address] 31459 PLATELET 562 x10EE3/UL High 150 - 450 [facility] Comment on above: Performed By: #### 2 97116 #### [facility],[address] [place] [address] 24372 Platelet mean volume (Bld) [Entitic vol] 9.1 fL Normal 6.6 - 10.5 [facility] Comment on above: Result Comment: AUTO MATED DIFFERENTIAL Performed By: #### 2 01660 #### [facility],[address] [place] [address] 42870 RBC 3.47 x 10EE6/UL Low 4.10 - 5.30 [facility] Comment on above: Performed By: #### 2 25240 #### [facility],[address] [place] [address] 68587 WBC 7.9 x 10EE3/UL Normal 4.5 - 10.8 [facility] Comment on above: Performed By: #### 2 54687 #### [facility],[address] [place] [address] 40556 CMP with eGFRon 05-13-2024 AGE 54 years Normal [facility] Comment on above: Performed By: #### 2 85808 #### [facility],[address] [place] [address] 19757 Albumin [Mass/Vol] 2.6 g/dL Low 3.4 - 5.0 [facility] Comment on above: Performed By: #### 2 18584 #### [facility],[address] [place] [address] 69712 Albumin/Globulin [Mass ratio] 0.6 {ratio} Low 0.9 - 1.6 [facility] Comment on above: Performed By: #### 2 70083 #### [facility],[address] [place] [address] 08361 ALK PHOS 121 U/L High 46 - 116 [facility] Comment on above: Performed By: #### 2 78043 #### [facility],[address] [place] [address] 67978 ALT [Catalytic activity/Vol] 23 U/L Normal 16 - 63 [facility] Comment on above: Performed By: #### 2 21440 #### [facility],[address] [place] [address] 11871 Anion gap [Moles/Vol] 10 mmol/L Normal 10 - 20 [facility] Comment on above: Performed By: #### 2 82568 #### [facility],[address] [place] [address] 12957 AST [Catalytic activity/Vol] 18 U/L Normal 13 - 39 [facility] Comment on above: Performed By: #### 2 59002 #### [facility],[address] [place] [address] 34896 B/C RATIO 15 ratio Normal 0 - 30 [facility] Comment on above: Performed By: #### 2 10944 #### [facility],[address] [place] [address] 56958 Bilirubin [Mass/Vol] 0.2 mg/dL Normal 0.2 - 1.0 [facility] Comment on above: Performed By: #### 2 99357 #### [facility],[address] [place] [address] 04511 Calcium [Mass/Vol] 8.4 mg/dL Low 8.5 - 10.1 [facility] Comment on above: Performed By: #### 2 13988 #### [facility],[address] [place], [place] [address] Chloride [Moles/Vol] 100 mmol/L Normal 98 - 107 [facility] Comment on above: Performed By: #### 2 68643 #### [facility],[address] [place] [address] CMP with eGFR Normal [facility] Comment on above: Result Comment: COMP REHENSIVE METABOLIC PANEL Performed By: #### 2 50719 #### [facility],[address] [place] [address] 27678 CO2 [Moles/Vol] 27.1 mmol/L Normal 21.0 - 32.0 [facility] Comment on above: Performed By: #### 2 46157 #### [facility],[address] [place] [address] 64088 Creatinine [Mass/Vol] 0.92 mg/dL Normal 0.55 - 1.02 [facility] Comment on above: Performed By: #### 2 66936 #### [address] [address] GFR/1.73 sq M.predicted among non-blacks MDRD (S/P/Bld) [Vol rate/Area] mL/min/{1.73_m2} Normal 60 - 999 [facility] Comment on above: Performed By: #### 2 12533 #### [facility],[address] [place] [address] Result Comment: ACCO RDING TO THE NATIONAL KIDNEY DISEASE EDUCATION PROGRAM(NKDE), A NORMAL eGFR IS A VALUE GREATER THAN OR EQUAL TO 60 ML/MIN/1.73 SQ METERS. CHRONIC KIDNEY DISEASE: <60mL/MIN/1.73 SQ METERS KIDNEY FAILURE: <15mL/MIN/1.73 SQ METERS THIS TEST SHOULD ONLY BE USED FOR PATIENTS 18 YEARS OF AGE AND OLDER. Globulin (S) [Mass/Vol] 4.2 g/dL High 1.5 - 3.8 [facility] Comment on above: Performed By: #### 2 41813 #### [place] [address] Glucose [Mass/Vol] 84 mg/dL Normal 74 - 106 [facility] Comment on above: Performed By: #### 2 67521 #### [place] [address] Potassium [Moles/Vol] 4.4 mmol/L Normal 3.5 - 5.1 [facility] Comment on above: Performed By: #### 2 85546 #### [place] [address] Protein [Mass/Vol] 6.8 g/dL Normal 6.4 - 8.2 [facility] Comment on above: Performed By: #### 2 87005 #### [address] [address] Sodium [Moles/Vol] 133 mmol/L Low 136 - 145 [facility] Comment on above: Performed By: #### 2 00612 #### [place] [id number] Urea nitrogen [Mass/Vol] 14 mg/dL Normal 7 - 18 [facility] Comment on above: Performed By: #### 2 27150 #### [place] [id number] CBC panel Auto (Bld)on 05-12 Erythrocyte distribution width (RBC) [Ratio] 20.3 % High 11.5 - 14.5 % [facility] Hematocrit (Bld) [Volume fraction] 25.7 % Low 36.0 - 46.0 % [facility] Hemoglobin (Bld) [Mass/Vol] 7.7 g/dL Low 12.0 - 16.0 g/dL [facility] Interpretation and review of laboratory results Abnormal [facility] MCH (RBC) [Entitic mass] 24.9 pg Low 26.0 - 34.0 pg [facility] MCHC (RBC) [Mass/Vol] 30 g/dL Low 32.0 - 36.0 g/dL [facility] MCV (RBC) [Entitic vol] 83 fL 80 - 100 fL [facility] Nucleated RBC/100 WBC (Bld) [Ratio] 1 % High [facility] Platelets (Bld) [#/Vol] 457 10*3/uL High [facility] RBC (Bld) [#/Vol] 3.09 10*6/uL [facility] WBC (Bld) [#/Vol] 7.8 10*3/uL [facility] Erythrocyte distribution width (RBC) [Ratio] 20.3 % High 11.5-14.5 [facility] Comment on above: Performed By: #### 5 8410-2 ####JANETH Galo ([id number])[facility] ([facility])[address] [place] [address] 29082 Hematocrit (Bld) [Volume fraction] 25.7 % Low 36.0-46.0 [facility] Comment on above: Performed By: #### 5 8410-2 ####JANETH Galo ([id number])[facility] ([facility])[address] [place] [address] 23515 Hemoglobin (Bld) [Mass/Vol] 7.7 g/dL Low 12.0-16.0 [facility] Comment on above: Performed By: #### 5 8410-2 ####JANETH Galo ([id number])[facility] ([facility])[address] [place] [address] MCH (RBC) [Entitic mass] 24.9 pg Low 26.0-34.0 [facility] Comment on above: Performed By: #### 5 8410-2 ####JANETH Galo ([id number])[facility] ([facility])[address] [place] [address] MCHC (RBC) [Mass/Vol] 30.0 g/dL Low 32.0-36.0 [facility] Comment on above: Performed By: #### 5 8410-2 ####JANETH Galo ([id number])[facility] ([facility])[address] [place] [address] MCV (RBC) [Entitic vol] 83 fL Normal 80-100 [facility] Comment on above: Performed By: #### 5 8410-2 ####JANETH Galo ([id number])[facility] ([facility])[address] [place] [address] Nucleated RBC/100 WBC (Bld) [Ratio] 1.0 /100 WBCs High 0.0-0.0 [facility] Comment on above: Performed By: #### 5 8410-2 ####JANETH Galo ([id number])[facility] ([facility])[address] [place] [address] Platelets (Bld) [#/Vol] 457 x10*3/uL High 150-450 [facility] Comment on above: Performed By: #### 5 8410-2 ####JANETH Galo ([id number])[facility] ([facility])[address] [place] [address] RBC (Bld) [#/Vol] 3.09 x10*6/uL Low 4.00-5.20 [facility] Comment on above: Performed By: #### 5 8410-2 ####JANETH Galo ([id number])[facility] ([facility])[address] [place] [address] WBC (Bld) [#/Vol] 7.8 x10*3/uL Normal 4.4-11.3 [facility] Comment on above: Performed By: #### 5 8410-2 ####JANETH Galo ([id number])[facility] ([facility])[address] [place] [address] Comprehensive metabolic 2000 panelon 05-12-2024 Albumin BCP dye [Mass/Vol] 3.1 g/dL Low 3.4 - 5.0 g/dL [facility] ALP [Catalytic activity/Vol] 93 U/L 33 - 110 U/L [facility] ALT With P-5'-P [Catalytic activity/Vol] 12 U/L 7 - 45 U/L [facility] Anion gap [Moles/Vol] 12 mmol/L 10 - 2 0 mmol/L [facility] AST With P-5'-P [Catalytic activity/Vol] 15 U/L 9 - 39 U/L [facility] Bilirubin [Mass/Vol] 0.2 mg/dL 0.0 - 1 .2 mg/dL [facility] Calcium [Mass/Vol] 8.7 mg/dL 8.6 - 10. 6 mg/dL [facility] Chloride [Moles/Vol] 101 mmol/L 98 - 10 7 mmol/L [facility] CO2 [Moles/Vol] 24 mmol/L 21 - 32 mmol/L [facility] Creatinine [Mass/Vol] 0.82 mg/dL 0.50 - 1.05 mg/dL [facility] GFR/1.73 sq M.predicted among non-blacks MDRD (S/P/Bld) [Vol rate/Area] 86 mL/min/{1.73_m2} - PINF [facility] Glucose [Mass/Vol] 105 mg/dL High 74 - 99 mg/dL [facility] Interpretation and review of laboratory results Abnormal [facility] Potassium [Moles/Vol] 4.6 mmol/L 3.5 - 5.3 mmol/L [facility] Protein [Mass/Vol] 6.3 g/dL Low 6.4 - 8.2 g/dL [facility] Sodium [Moles/Vol] 132 mmol/L Low 136 - 145 mmol/L [facility] Urea nitrogen [Mass/Vol] 14 mg/dL 6 - 23 mg/dL [facility] Albumin BCP dye [Mass/Vol] 3.1 g/dL Low 3.4-5.0 [facility] Comment on above: Performed By: #### 2 4323-8 ####JANETH Galo ([id number])[facility] ([facility])[address] [place] [address] ALP [Catalytic activity/Vol] 93 U/L Normal 33-110 [facility] Comment on above: Performed By: #### 2 4323-8 ####JANETH Galo ([id number])[facility] ([facility])[address] [place] [address] ALT With P-5'-P [Catalytic activity/Vol] 12 U/L Normal 7-45 [facility] Comment on above: Result Comment: Tomasa ents treated with Sulfasalazine may generate falsely decreased results for ALT. Performed By: #### 2 4323-8 ####JANETH Galo ([id number])[facility] ([facility])[address] [place] [address] Anion gap [Moles/Vol] 12 mmol/L Normal 10-20 [facility] Comment on above: Performed By: #### 2 6543-8 ####JANETH Galo ([id number])[facility])[address] [place] [address] AST With P-5'-P [Catalytic activity/Vol] 15 U/L Normal 9-39 [facility] Comment on above: Performed By: #### 2 3283-8 ####JANETH Galo ([id number])[facility])[address] [place] [address] Bilirubin [Mass/Vol] 0.2 mg/dL Normal 0.0-1.2 [facility] Comment on above: Performed By: #### 2 4323-8 ####JANETH RANGELER L ([id number])[facility])[address] [place] [address] Calcium [Mass/Vol] 8.7 mg/dL Normal 8.6-10.6 [facility] Comment on above: Performed By: #### 2 4323-8 ####JANETH CONNORMOTZER L ([id number])[facility])[address] [place] [address] Chloride [Moles/Vol] 101 mmol/L Normal 98-107 [facility] Comment on above: Performed By: #### 2 4323-8 ####JANETH CONNORMOTZER L ([id number])[facility])[address] [place] [address] CO2 [Moles/Vol] 24 mmol/L Normal 21-32 [facility] Comment on above: Performed By: #### 2 4323-8 ####JANETH CONNORMOPIEDADER L ([id number])[facility])[address] [place] [address] Creatinine [Mass/Vol] 0.82 mg/dL Normal 0.50-1.05 [facility] Comment on above: Performed By: #### 2 4323-8 ####JANETH CONNORMOTZER L ([id number])[facility])[address] [place] [address] Glomerular filtration rate/1.73 sq M.predicted 86 mL/min/1.73m*2 Normal >60 [facility] Comment on above: Result Comment: Calc ulations of estimated GFR are performed using the 2020 CKD-EPI Study Refit equation without the race variable for the IDMS-Traceable creatinine methods.https://jasn.asnjournals.org/content/early/ N.0617661162 Performed By: #### 2 4323-8 ####JANETH CONNORMOTZER L ([id number])[facility])[address] [place] [address] Glucose [Mass/Vol] 105 mg/dL High 74-99 [facility] Comment on above: Performed By: #### 2 4323-8 ####JANETH Galo ([id number])[facility])[address] [place] [address] Potassium [Moles/Vol] 4.6 mmol/L Normal 3.5-5.3 [facility] Comment on above: Performed By: #### 2 4323-8 ####JANETH Galo ([id number])[facility])[address] [place] [address] Protein [Mass/Vol] 6.3 g/dL Low 6.4-8.2 [facility] Comment on above: Performed By: #### 2 4323-8 ####JANETH Galo ([id number])[facility])[address] [place] [address] Sodium [Moles/Vol] 132 mmol/L Low 136-145 [facility] Comment on above: Performed By: #### 2 4323-8 ####JANETH Galo ([id number])[facility])[address] [place] [address] Urea nitrogen [Mass/Vol] 14 mg/dL Normal 6-23 [facility] Comment on above: Performed By: #### 2 4323-8 ####JANETH Galo ([id number])[facility])[id number] [place] [address] Bedside [facility] IMAGING CBC W Auto Differential pane l (Bld)on 05-11-2024 Basophils (Bld) [#/Vol] 0.09 10*3/uL [facility] Basophils/100 WBC (Bld) 1.1 % 0.0 - 2.0 % [facility] Eosinophils (Bld) [#/Vol] 0.7 10*3/uL [facility] Eosinophils/100 WBC (Bld) 8.5 % 0.0 - 6.0 % [facility] Erythrocyte distribution width (RBC) [Ratio] 19.9 % High 11.5 - 14.5 % [facility] Hematocrit (Bld) [Volume fraction] 26.8 % Low 36.0 - 46.0 % [facility] Hemoglobin (Bld) [Mass/Vol] 7.9 g/dL Low 12.0 - 16.0 g/dL [facility] Immature granulocytes (Bld) [#/Vol] 0.03 10*3/uL [facility] Immature granulocytes/100 WBC (Bld) 0.4 % 0.0 - 0.9 % [facility] Interpretation and review of laboratory results Abnormal [facility] Lymphocytes (Bld) [#/Vol] 2.91 10*3/uL [facility] Lymphocytes/100 WBC (Bld) 35.5 % 13.0 - 44.0 % [facility] MCH (RBC) [Entitic mass] 23.9 pg Low 26.0 - 34.0 pg [facility] MCHC (RBC) [Mass/Vol] 29.5 g/dL Low 32.0 - 36.0 g/dL [facility] MCV (RBC) [Entitic vol] 81 fL 80 - 100 fL [facility] Monocytes (Bld) [#/Vol] 0.63 10*3/uL [facility] Monocytes/100 WBC (Bld) 7.7 % 2.0 - 10.0 % [facility] Neutrophils (Bld) [#/Vol] 3.83 10*3/uL [facility] Neutrophils/100 WBC (Bld) 46.8 % 40.0 - 80.0 % [facility] Nucleated RBC/100 WBC (Bld) [Ratio] 0.9 % High [facility] Platelets (Bld) [#/Vol] 492 10*3/uL High [facility] RBC (Bld) [#/Vol] 3.3 10*6/uL Low [facility] WBC (Bld) [#/Vol] 8.2 10*3/uL [facility] Basophils (Bld) [#/Vol] 0.09 x10*3/uL Normal 0.00-0.10 [facility] Comment on above: Performed By: #### 5 7021-8 ####JANETH Galo ([id number])[facility])[address] [place] [address] Basophils/100 WBC (Bld) 1.1 % Normal 0.0-2.0 [facility] Comment on above: Performed By: #### 5 7021-8 ####JANETH Galo ([id number])[facility])[id number] [place] [address] Eosinophils (Bld) [#/Vol] 0.70 x10*3/uL Normal 0.00-0.70 [facility] Comment on above: Performed By: #### 5 7021-8 ####JANETH Galo ([id number])[facility])[address] [place] [address] Eosinophils/100 WBC (Bld) 8.5 % Normal 0.0-6.0 [facility] Comment on above: Performed By: #### 5 7021-8 ####JANETH Galo ([id number])[facility])[address] [place] [address] Erythrocyte distribution width (RBC) [Ratio] 19.9 % High 11.5-14.5 [facility] Comment on above: Performed By: #### 5 7021-8 ####JANETH Galo ([id number])[facility])[address] [place] [address] Hematocrit (Bld) [Volume fraction] 26.8 % Low 36.0-46.0 [facility] Comment on above: Performed By: #### 5 7021-8 ####JANETH Galo ([id number])[facility])[address] [place] [address] Hemoglobin (Bld) [Mass/Vol] 7.9 g/dL Low 12.0-16.0 [facility] Comment on above: Performed By: #### 5 7021-8 ####JANETH Galo (19881)[facility])[address] [place] [address] Immature granulocytes (Bld) [#/Vol] 0.03 x10*3/uL Normal 0.00-0.70 [facility] Comment on above: Performed By: #### 5 7021-8 ####JAENTH Galo ([id number])[facility])[address] [place] [address] Immature granulocytes/100 WBC (Bld) 0.4 % Normal 0.0-0.9 [facility] Comment on above: Result Comment: Catrachita ture Granulocyte Count (IG) includes promyelocytes, myelocytes and metamyelocytes but does not include bands. Percent differential counts (%) should be interpreted in the context of the absolute cell counts (cells/UL). Performed By: #### 5 7021-8 ####JANETH Galo ([id number])[facility])[address] [place] [address] Lymphocytes (Bld) [#/Vol] 2.91 x10*3/uL Normal 1.20-4.80 [facility] Comment on above: Performed By: #### 5 7021-8 ####JANETH Galo ([id number])[facility])[address] [place] [address] Lymphocytes/100 WBC (Bld) 35.5 % Normal 13.0-44.0 [facility] Comment on above: Performed By: #### 5 7021-8 ####JANETH Galo ([id number])[facility])[address] [place] [address] MCH (RBC) [Entitic mass] 23.9 pg Low 26.0-34.0 [facility] Comment on above: Performed By: #### 5 7021-8 ####JANETH Galo ([id number])[facility])[address] [place] [address] MCHC (RBC) [Mass/Vol] 29.5 g/dL Low 32.0-36.0 [facility] Comment on above: Performed By: #### 5 7021-8 ####JANETH Galo ([id number])[facility])[address] [place] [address] MCV (RBC) [Entitic vol] 81 fL Normal 80-100 [facility] Comment on above: Performed By: #### 5 7021-8 ####JANETH Galo ([id number])[facility])[address] [place] [address] Monocytes (Bld) [#/Vol] 0.63 x10*3/uL Normal 0.10-1.00 [facility] Comment on above: Performed By: #### 5 7021-8 ####JANETH Galo ([id number])[facility])[address] [place] [address] Monocytes/100 WBC (Bld) 7.7 % Normal 2.0-10.0 [facility] Comment on above: Performed By: #### 5 7021-8 ####JANETH Galo ([id number])[facility])[address] [place] [address] Neutrophils (Bld) [#/Vol] 3.83 x10*3/uL Normal 1.20-7.70 [facility] Comment on above: Result Comment: Perc ent differential counts (%) should be interpreted in the context of the absolute cell counts (cells/uL). Performed By: #### 5 7021-8 ####JANETH Galo ([id number])[facility])[address] [place] [address] Neutrophils/100 WBC (Bld) 46.8 % Normal 40.0-80.0 [facility] Comment on above: Performed By: #### 5 7021-8 ####JANETH Galo ([id number])[facility])[address] [place] [address] Nucleated RBC/100 WBC (Bld) [Ratio] 0.9 /100 WBCs High 0.0-0.0 [facility] Comment on above: Performed By: #### 5 7021-8 ####JANETH Galo ([id number])[facility])[address] [place] [address] Platelets (Bld) [#/Vol] 492 x10*3/uL High 150-450 [facility] Comment on above: Performed By: #### 5 7021-8 ####JANETH Galo ([id number])[facility])[address] [place] [address] RBC (Bld) [#/Vol] 3.30 x10*6/uL Low 4.00-5.20 [facility] Comment on above: Performed By: #### 5 7021-8 ####JANETH Galo ([id number])[facility])[address] [place] [address] WBC (Bld) [#/Vol] 8.2 x10*3/uL Normal 4.4-11.3 [facility] Comment on above: Performed By: #### 5 7021-8 ####JANETH Galo ([id number])[facility])[address] [place] [address] Comprehensive metabolic 2000 panelon 05-11-2024 Albumin BCP dye [Mass/Vol] 3.3 g/dL Low 3.4 - 5.0 g/dL [facility] ALP [Catalytic activity/Vol] 96 U/L 33 - 110 U/L [facility] ALT With P-5'-P [Catalytic activity/Vol] 12 U/L 7 - 45 U/L [facility] Anion gap [Moles/Vol] 15 mmol/L 10 - 2 0 mmol/L [facility] AST With P-5'-P [Catalytic activity/Vol] 17 U/L 9 - 39 U/L [facility] Bilirubin [Mass/Vol] 0.2 mg/dL 0.0 - 1 .2 mg/dL [facility] Calcium [Mass/Vol] 8.9 mg/dL 8.6 - 10. 6 mg/dL [facility] Chloride [Moles/Vol] 101 mmol/L 98 - 10 7 mmol/L [facility] CO2 [Moles/Vol] 23 mmol/L 21 - 32 mmol/L [facility] Creatinine [Mass/Vol] 0.8 mg/dL 0.50 - 1.05 mg/dL [facility] GFR/1.73 sq M.predicted among non-blacks MDRD (S/P/Bld) [Vol rate/Area] 89 mL/min/{1.73_m2} - PINF [facility] Glucose [Mass/Vol] 95 mg/dL 74 - 99 mg/dL [facility] Interpretation and review of laboratory results Abnormal [facility] Potassium [Moles/Vol] 4.9 mmol/L 3.5 - 5.3 mmol/L [facility] Protein [Mass/Vol] 6.7 g/dL 6.4 - 8.2 g/dL [facility] Sodium [Moles/Vol] 134 mmol/L Low 136 - 145 mmol/L [facility] Urea nitrogen [Mass/Vol] 12 mg/dL 6 - 23 mg/dL [facility] Albumin BCP dye [Mass/Vol] 3.3 g/dL Low 3.4-5.0 [facility] Comment on above: Performed By: #### 2 4323-8 ####JANETH Galo ([id number])[facility])[address] [place] [address] ALP [Catalytic activity/Vol] 96 U/L Normal 33-110 [facility] Comment on above: Performed By: #### 2 4323-8 ####JANETH Galo ([id number])[facility])[address] [place] [address] ALT With P-5'-P [Catalytic activity/Vol] 12 U/L Normal 7-45 [facility] Comment on above: Result Comment: Tomasa ents treated with Sulfasalazine may generate falsely decreased results for ALT. Performed By: #### 2 1213-8 ####JANETH Galo ([id number])[facility])[address] [place] [address] Anion gap [Moles/Vol] 15 mmol/L Normal 10-20 [facility] Comment on above: Performed By: #### 2 4323-8 ####JANETH Galo ([id number])[facility])[address] [place] [address] AST With P-5'-P [Catalytic activity/Vol] 17 U/L Normal 9-39 [facility] Comment on above: Performed By: #### 2 4323-8 ####JANETH Galo ([id number])[facility])[address] [place] [address] Bilirubin [Mass/Vol] 0.2 mg/dL Normal 0.0-1.2 [facility] Comment on above: Performed By: #### 2 4323-8 ####JANETH Galo ([id number])[facility])[address] [place] [address] Calcium [Mass/Vol] 8.9 mg/dL Normal 8.6-10.6 [facility] Comment on above: Performed By: #### 2 4323-8 ####JANETH Galo ([id number])[facility])[address] [place] [address] Chloride [Moles/Vol] 101 mmol/L Normal 98-107 [facility] Comment on above: Performed By: #### 2 4323-8 ####JANETH GRAFF L ([id number])[facility])[address] [place] [address] CO2 [Moles/Vol] 23 mmol/L Normal 21-32 [facility] Comment on above: Performed By: #### 2 4323-8 ####JANETH Galo ([id number])[facility])[address] [place] [address] Creatinine [Mass/Vol] 0.80 mg/dL Normal 0.50-1.05 [facility] Comment on above: Performed By: #### 2 4323-8 ####JANETH Galo ([id number])[facility])[address] [place] [address] Glomerular filtration rate/1.73 sq M.predicted 89 mL/min/1.73m*2 Normal >60 [facility] Comment on above: Result Comment: Calc ulations of estimated GFR are performed using the 2020 CKD-EPI Study Refit equation without the race variable for the IDMS-Traceable creatinine methods.https://jasn.asnjournals.org/content/early// N.8281205648 Performed By: #### 2 4323-8 ####JANETH Galo ([id number])[facility])[address] [place] [address] Glucose [Mass/Vol] 95 mg/dL Normal 74-99 [facility] Comment on above: Performed By: #### 2 4323-8 ####JANETH Galo ([id number])[facility])[address] [place] [address] Potassium [Moles/Vol] 4.9 mmol/L Normal 3.5-5.3 [facility] Comment on above: Performed By: #### 2 4323-8 ####JANETH Galo ([id number])[facility])[address] [place] [address] Protein [Mass/Vol] 6.7 g/dL Normal 6.4-8.2 [facility] Comment on above: Performed By: #### 2 4323-8 ####JANETH GRAFF L ([id number])[facility])[address] [place] [address] Sodium [Moles/Vol] 134 mmol/L Low 136-145 [facility] Comment on above: Performed By: #### 2 4323-8 ####JANETH Galo ([id number])[facility])[address] [place] [address] Urea nitrogen [Mass/Vol] 12 mg/dL Normal 6-23 [facility] Comment on above: Performed By: #### 2 4323-8 ####JANETH Galo ([id number])[facility])[address] [place] [address] Heparin Assay, UFHon 025 Heparin unfractionated Chromogenic method Qn (PPP) 0.5 See Comment Below for Therapeutic Ranges IU/mL [facility] Heparin unfractionated Chrom ogenic method Qn (PPP)on 05-11-2024 Interpretation and review of laboratory results Normal [facility] MIDLINE BEDSIDE IMAGINGon MIDLINE BEDSIDE IMAGING These images are not reportable by radiology and will not be interpreted by Radiologists. Normal [facility] Fungal Culture/SmearOrdered By: Pat Hernandez on 05-10-2024 Fungus identified Cx Nom (Unsp spec) 5 colonies Mendy parapsilosis Abnormal [facility] Fungus identified Cx Nom (Un sp spec)Ordered By: Pat Hernandez on 05-10-2024 Fungus identified Fungus stain Nom (Unsp spec) No fungal elements seen [facility] Interpretation and review of laboratory results Abnormal [facility] Heparin Assay, UFHon 025 Heparin unfractionated Chromogenic method Qn (PPP) 0.6 See Comment Below for Therapeutic Ranges IU/mL [facility] Heparin unfractionated Chromogenic method Qn (PPP) 0.2 See Comment Below for Therapeutic Ranges IU/mL [facility] Heparin unfractionated Chromogenic method Qn (PPP) 1 See Comment Below for Therapeutic Ranges IU/mL [facility] Heparin Assay, UFHOrdered By : Tennille Day on 05-10-2024 Heparin unfractionated Chromogenic method Qn (PPP) 0.6 See Comment Below for Therapeutic Ranges IU/mL [facility] Heparin unfractionated Chrom ogenic method Qn (PPP)on 05-10-2024 Interpretation and review of laboratory results Normal [facility] Interpretation and review of laboratory results Normal [facility] Interpretation and review of laboratory results Normal [facility] Heparin unfractionated Chrom ogenic method Qn (PPP)Ordered By: Tennille Day on 05-10-2024 Interpretation and review of laboratory results Normal [facility] Heparin.unfractionatedon Heparin unfractionated Chromogenic method Qn (PPP) 0.5 IU/mL Normal See Comment Below for Therapeutic Ranges [facility] Comment on above: Order Comment: Obtai n 4 hours after any Heparin dosage change. Nursing to release order.The therapeutic reference range for UFH may be either 0.3-0.6 IU/mL or 0.3-0.7 IU/mL based on the clinical setting for anticoagulant therapy and the associated nomogram used. For Heparin dosing guidelines based on clinical scenario and Heparin Assay results, please refer to local Pharmacy and the [facility] Guidelines for Anticoagulation Therapy available on the [facility] intranet at: [email or web address]_[email or web address] Performed By: #### 3 274-8 ####JANETH Galo ([id number])[facility] ([facility])[address] [place] [address] Heparin unfractionated Chromogenic method Qn (PPP) 0.6 IU/mL Normal See Comment Below for Therapeutic Ranges [facility] Comment on above: Order Comment: Obtai n 4 hours after any Heparin dosage change. Nursing to release order.The therapeutic reference range for UFH may be either 0.3-0.6 IU/mL or 0.3-0.7 IU/mL based on the clinical setting for anticoagulant therapy and the associated nomogram used. For Heparin dosing guidelines based on clinical scenario and Heparin Assay results, please refer to local Pharmacy and the [facility] Guidelines for Anticoagulation Therapy available on the [facility] intranet at: [email or web address]_[email or web address] Performed By: #### 3 274-8 ####JANETH Galo ([id number])[facility] ([facility])[address] [place] [address] Heparin unfractionated Chromogenic method Qn (PPP) 0.2 IU/mL Normal See Comment Below for Therapeutic Ranges [facility] Comment on above: Order Comment: Obtai n 4 hours after any Heparin dosage change. Nursing to release order.The therapeutic reference range for UFH may be either 0.3-0.6 IU/mL or 0.3-0.7 IU/mL based on the clinical setting for anticoagulant therapy and the associated nomogram used. For Heparin dosing guidelines based on clinical scenario and Heparin Assay results, please refer to local Pharmacy and the [facility] Guidelines for Anticoagulation Therapy available on the [facility] intranet at: [email or web address]_[email or web address] Performed By: #### 3 274-8 ####JANETH Galo ([id number])[facility] ([facility])[address] [place] [address] Heparin unfractionated Chromogenic method Qn (PPP) 0.6 IU/mL Normal See Comment Below for Therapeutic Ranges [facility] Comment on above: Order Comment: Obtai n 4 hours after any Heparin dosage change. Nursing to release order.The therapeutic reference range for UFH may be either 0.3-0.6 IU/mL or 0.3-0.7 IU/mL based on the clinical setting for anticoagulant therapy and the associated nomogram used. For Heparin dosing guidelines based on clinical scenario and Heparin Assay results, please refer to local Pharmacy and the [facility] Guidelines for Anticoagulation Therapy available on the [facility] intranet at: [email or web address]_[email or web address] Performed By: #### 3 274-8 ####JANETH Galo ([id number])[facility] ([facility])[address] [place], [place] [address] Heparin unfractionated Chromogenic method Qn (PPP) 1.0 IU/mL Normal See Comment Below for Therapeutic Ranges [facility] Comment on above: Order Comment: Obtai n 4 hours after any Heparin dosage change. Nursing to release order.The therapeutic reference range for UFH may be either 0.3-0.6 IU/mL or 0.3-0.7 IU/mL based on the clinical setting for anticoagulant therapy and the associated nomogram used. For Heparin dosing guidelines based on clinical scenario and Heparin Assay results, please refer to local Pharmacy and the [facility] Guidelines for Anticoagulation Therapy available on the [facility] intranet at: [email or web address] [email or web address] Performed By: #### 3 274-8 ####JANETH Galo ([id number])[facility] ([facility])[address] [place] [address] Basic metabolic 2000 panelon 05-09-2024 Anion gap [Moles/Vol] 11 mmol/L 10 - 2 0 mmol/L [facility] Calcium [Mass/Vol] 8.7 mg/dL 8.6 - 10. 6 mg/dL [facility] Chloride [Moles/Vol] 102 mmol/L 98 - 10 7 mmol/L [facility] CO2 [Moles/Vol] 26 mmol/L 21 - 32 mmol/L [facility] Creatinine [Mass/Vol] 0.81 mg/dL 0.50 - 1.05 mg/dL [facility] GFR/1.73 sq M.predicted among non-blacks MDRD (S/P/Bld) [Vol rate/Area] 87 mL/min/{1.73_m2} - PINF [facility] Glucose [Mass/Vol] 96 mg/dL 74 - 99 mg/dL [facility] Interpretation and review of laboratory results Abnormal [facility] Potassium [Moles/Vol] 4.6 mmol/L 3.5 - 5.3 mmol/L [facility] Sodium [Moles/Vol] 134 mmol/L Low 136 - 145 mmol/L [facility] Urea nitrogen [Mass/Vol] 15 mg/dL 6 - 23 mg/dL [facility] Anion gap [Moles/Vol] 11 mmol/L Normal 10-20 [facility] Comment on above: Performed By: #### 2 4321-2 ####JANETH GRAFF L ([id number])[facility] ([facility])[address] [place] [address] Calcium [Mass/Vol] 8.7 mg/dL Normal 8.6-10.6 [facility] Comment on above: Performed By: #### 2 4321-2 ####JANETH RANGELER L ([id number])[facility] ([facility])[address] [place] [address] Chloride [Moles/Vol] 102 mmol/L Normal 98-107 [facility] Comment on above: Performed By: #### 2 4321-2 ####AJNETH GRAFF L ([id number])[facility] ([facility])[address] [place] [address] CO2 [Moles/Vol] 26 mmol/L Normal 21-32 [facility] Comment on above: Performed By: #### 2 4321-2 ####JANETH GRAFF L ([id number])[facility] ([facility])[address] [place] [address] Creatinine [Mass/Vol] 0.81 mg/dL Normal 0.50-1.05 [facility] Comment on above: Performed By: #### 2 4321-2 ####JANETH MCDONALDTZLETI L ([id number])[facility] ([facility])[address] [place] [address] Glomerular filtration rate/1.73 sq M.predicted 87 mL/min/1.73m*2 Normal >60 [facility] Comment on above: Result Comment: Calc ulations of estimated GFR are performed using the 2020 CKD-EPI Study Refit equation without the race variable for the IDMS-Traceable creatinine methods.https://jasn.asnjournals.org/content/early// N.[id number] Performed By: #### 2 4321-2 ####JANETH Galo ([id number])[facility] ([facility])[address] [place] [address] Glucose [Mass/Vol] 96 mg/dL Normal 74-99 [facility] Comment on above: Performed By: #### 2 4321-2 ####JANETH Galo ([id number])[facility] ([facility])[address] [place] [address] Potassium [Moles/Vol] 4.6 mmol/L Normal 3.5-5.3 [facility] Comment on above: Performed By: #### 2 4321-2 ####JANETH Galo ([id number])[facility] ([facility])[address] [place] [address] Sodium [Moles/Vol] 134 mmol/L Low 136-145 [facility] Comment on above: Performed By: #### 2 4321-2 ####JANETH Galo ([id number])[facility] ([facility])[address] [place] [address] Urea nitrogen [Mass/Vol] 15 mg/dL Normal 6-23 [facility] Comment on above: Performed By: #### 2 4321-2 ####JANETH GRAFF L ([id number])[facility] ([facility])[address] [place] [address] CBC panel Auto (Bld)on 05-09 Erythrocyte distribution width (RBC) [Ratio] 19.3 % High 11.5 - 14.5 % [facility] Hematocrit (Bld) [Volume fraction] 28.6 % Low 36.0 - 46.0 % [facility] Hemoglobin (Bld) [Mass/Vol] 8.2 g/dL Low 12.0 - 16.0 g/dL [facility] Interpretation and review of laboratory results Abnormal [facility] MCH (RBC) [Entitic mass] 24.3 pg Low 26.0 - 34.0 pg [facility] MCHC (RBC) [Mass/Vol] 28.7 g/dL Low 32.0 - 36.0 g/dL [facility] MCV (RBC) [Entitic vol] 85 fL 80 - 100 fL [facility] Nucleated RBC/100 WBC (Bld) [Ratio] 1.1 % High [facility] Platelets (Bld) [#/Vol] 559 10*3/uL High [facility] RBC (Bld) [#/Vol] 3.38 10*6/uL [facility] WBC (Bld) [#/Vol] 8.5 10*3/uL [facility] Erythrocyte distribution width (RBC) [Ratio] 19.3 % High 11.5-14.5 [facility] Comment on above: Performed By: #### 5 8410-2 ####JANETH Galo ([id number])[facility] ([facility])[address] [place] [address] Hematocrit (Bld) [Volume fraction] 28.6 % Low 36.0-46.0 [facility] Comment on above: Performed By: #### 5 8410-2 ####JANETH Galo ([id number])[facility] ([facility])[address] [place] [address] Hemoglobin (Bld) [Mass/Vol] 8.2 g/dL Low 12.0-16.0 [facility] Comment on above: Performed By: #### 5 8410-2 ####JANETH Galo ([id number])[facility] ([facility])[address] [place] [address] MCH (RBC) [Entitic mass] 24.3 pg Low 26.0-34.0 [facility] Comment on above: Performed By: #### 5 8410-2 ####JANETH Galo ([id number])[facility] ([facility])[address] [place] [address] MCHC (RBC) [Mass/Vol] 28.7 g/dL Low 32.0-36.0 [facility] Comment on above: Performed By: #### 5 8410-2 ####JANETH Galo ([id number])[facility] ([facility])[address] [place] [address] MCV (RBC) [Entitic vol] 85 fL Normal 80-100 [facility] Comment on above: Performed By: #### 5 8410-2 ####JANETH Galo ([id number])[facility] ([facility])[address] [place] [address] Nucleated RBC/100 WBC (Bld) [Ratio] 1.1 /100 WBCs High 0.0-0.0 [facility] Comment on above: Performed By: #### 5 8410-2 ####JANETH Galo ([id number])[facility] ([facility])[address] [place] [address] Platelets (Bld) [#/Vol] 559 x10*3/uL High 150-450 [facility] Comment on above: Performed By: #### 5 8410-2 ####JANETH Galo ([id number])[facility] ([facility])[address] [place] [address] RBC (Bld) [#/Vol] 3.38 x10*6/uL Low 4.00-5.20 [facility] Comment on above: Performed By: #### 5 8410-2 ####JANETH Galo ([id number])[facility] ([facility])[address] [place] [address] WBC (Bld) [#/Vol] 8.5 x10*3/uL Normal 4.4-11.3 [facility] Comment on above: Performed By: #### 5 8410-2 ####JANETH GRAFF L ([id number])[facility] ([facility])[address] [place] [address] Coagulation surface inducedo n 05-09-2024 aPTT Coag (PPP) [Time] 40 s High 26-36 [facility] Comment on above: Order Comment: Basel ine aPTT before initiating heparin infusion. Nursing to release order.The APTT is no longer used for monitoring Unfractionated Heparin Therapy. For monitoring Heparin Therapy, use the Heparin Assay. Performed By: #### 1 4979-9 ####JANETH Galo ([id number])[facility] ([facility])[address] [place] [address] Heparin Assay, UFHon 025 Heparin unfractionated Chromogenic method Qn (PPP) 0.1 See Comment Below for Therapeutic Ranges IU/mL [facility] Heparin unfractionated Chrom ogenic method Qn (PPP)on 05-09-2024 Interpretation and review of laboratory results Normal [facility] Heparin.unfractionatedon Heparin unfractionated Chromogenic method Qn (PPP) 0.1 IU/mL Normal See Comment Below for Therapeutic Ranges [facility] Comment on above: Order Comment: Obtai n 4 hours after initiation of heparin infusion. Nursing to release order.The therapeutic reference range for UFH may be either 0.3-0.6 IU/mL or 0.3-0.7 IU/mL based on the clinical setting for anticoagulant therapy and the associated nomogram used. For Heparin dosing guidelines based on clinical scenario and Heparin Assay results, please refer to local Pharmacy and the [facility] Guidelines for Anticoagulation Therapy available on the [facility] intranet at: [email or web address] Performed By: #### 3 274-8 ####JANETH Galo ([id number])[facility] ([facility])[address] [place] [address] No Panel Informationon 05-09 [facility] US.doppler Lower extremity v ein - bilateralon 05-09-2024 MMODAL UH MMODAL [facility] Work Phone: Radiology Study observation (narrative) [facility] Work Phone: US.doppler Lower extremity v ein - bilateralOrdered By: Omkar Estrella on 05-09-2024 [facility] Work Phone: VASC US LOWER EXTREMITY VENO US DUPLEX BILATERALon 05-09-2024 VASC US LOWER EXTREMITY VENOUS DUPLEX BILATERAL Normal [facility] aPTT - baselineon 05-09-2024 aPTT Coag (PPP) [Time] 40 s High [facility] aPTT Coag (PPP) [Time]on Interpretation and review of laboratory results Abnormal [facility] Bacteria identified Cx Nom ( Unsp spec)Ordered By: Bailee Galloway on 05-08-2024 Microscopic observation Gram stain Nom (Unsp spec) (1+) Rare Polymorphonuclear leukocytes [facility] Microscopic observation Gram stain Nom (Unsp spec) No organisms seen [facility] Basic metabolic 2000 panelon 05-08-2024 Anion gap [Moles/Vol] 12 mmol/L 10 - 2 0 mmol/L [facility] Calcium [Mass/Vol] 8.3 mg/dL Low 8.6 - 10. 6 mg/dL [facility] Chloride [Moles/Vol] 103 mmol/L 98 - 10 7 mmol/L [facility] CO2 [Moles/Vol] 24 mmol/L 21 - 32 mmol/L [facility] Creatinine [Mass/Vol] 0.66 mg/dL 0.50 - 1.05 mg/dL [facility] eGFR - PINF [facility] Glucose [Mass/Vol] 85 mg/dL 74 - 99 mg/dL [facility] Interpretation and review of laboratory results Abnormal [facility] Potassium [Moles/Vol] 4.3 mmol/L 3.5 - 5.3 mmol/L [facility] Sodium [Moles/Vol] 135 mmol/L Low 136 - 145 mmol/L [facility] Urea nitrogen [Mass/Vol] 14 mg/dL 6 - 23 mg/dL [facility] Anion gap [Moles/Vol] 12 mmol/L Normal 10-20 [facility] Comment on above: Performed By: #### 2 4321-2 ####JANETH Galo ([id number])[facility] ([facility])[address] [place] [address] Calcium [Mass/Vol] 8.3 mg/dL Low 8.6-10.6 [facility] Comment on above: Performed By: #### 2 4321-2 ####JANETH Galo ([id number])[facility] ([facility])[address] [place] [address] Chloride [Moles/Vol] 103 mmol/L Normal 98-107 [facility] Comment on above: Performed By: #### 2 4321-2 ####JANETH Galo ([id number])[facility] ([facility])[address] [place] [address] CO2 [Moles/Vol] 24 mmol/L Normal 21-32 [facility] Comment on above: Performed By: #### 2 4321-2 ####JANETH Galo ([id number])[facility] ([facility])[address] [place] [address] Creatinine [Mass/Vol] 0.66 mg/dL Normal 0.50-1.05 [facility] Comment on above: Performed By: #### 2 4321-2 ####JANETH Galo ([id number])[facility] ([facility])[address] [place] [address] GFR/1.73 sq M.predicted MDRD (S/P/Bld) [Vol rate/Area] mL/min/{1.73_m2} Normal >60 [facility] Comment on above: Result Comment: Calc ulations of estimated GFR are performed using the 2020 CKD-EPI Study Refit equation without the race variable for the IDMS-Traceable creatinine methods.https://jasn.asnjournals.org/content/early/ N.1394549463 Performed By: #### 2 4321-2 ####JANETH Galo ([id number])[facility] ([facility])[address] [place] [address] Glucose [Mass/Vol] 85 mg/dL Normal 74-99 [facility] Comment on above: Performed By: #### 2 4321-2 ####JANETH Galo ([id number])[facility] ([facility])[address] [place] [address] Potassium [Moles/Vol] 4.3 mmol/L Normal 3.5-5.3 [facility] Comment on above: Performed By: #### 2 4321-2 ####JANETH Galo ([id number])[facility] ([facility])[address] [place] [address] Sodium [Moles/Vol] 135 mmol/L Low 136-145 [facility] Comment on above: Performed By: #### 2 4321-2 ####JANETH Galo ([id number])[facility] ([facility])[address] [place] [address] Urea nitrogen [Mass/Vol] 14 mg/dL Normal 6-23 [facility] Comment on above: Performed By: #### 2 4321-2 ####JANETH Galo ([id number])[facility] ([facility])[address] [place] [address] Blood type and Indirect anti body screen panel (Bld)on 05-08-2024 ABO group Nom (Bld) A [facility] Blood group antibody screen Ql Negative [facility] D Ag Ql (Bld) Positive [facility] ABO group Nom (Bld) A Normal [facility] Comment on above: Performed By: #### 3 4532-2 ####JANETH Galo ([id number])[facility] ([facility])[address] [place] [address] Blood group antibody screen Ql Negative [facility] Comment on above: Performed By: #### 3 4532-2 ####JANETH Galo ([id number])[facility] ([facility])[address] [place] [address] D Ag Ql (Bld) Positive [facility] Comment on above: Performed By: #### 3 453-2 ####JANETH Galo ([id number])[facility] ([facility])[address] [place] [address] CBC panel Auto (Bld)on 05-08 Erythrocyte distribution width (RBC) [Ratio] 19.4 % High 11.5 - 14.5 % [facility] Hematocrit (Bld) [Volume fraction] 29.5 % Low 36.0 - 46.0 % [facility] Hemoglobin (Bld) [Mass/Vol] 8.6 g/dL Low 12.0 - 16.0 g/dL [facility] Interpretation and review of laboratory results Abnormal [facility] MCH (RBC) [Entitic mass] 24.8 pg Low 26.0 - 34.0 pg [facility] MCHC (RBC) [Mass/Vol] 29.2 g/dL Low 32.0 - 36.0 g/dL [facility] MCV (RBC) [Entitic vol] 85 fL 80 - 100 fL [facility] Nucleated RBC/100 WBC (Bld) [Ratio] 0.7 % High [facility] Platelets (Bld) [#/Vol] 548 10*3/uL High [facility] RBC (Bld) [#/Vol] 3.47 10*6/uL [facility] WBC (Bld) [#/Vol] 8.5 10*3/uL [facility] Erythrocyte distribution width (RBC) [Ratio] 19.4 % High 11.5-14.5 [facility] Comment on above: Performed By: #### 5 8410-2 ####JANETH Galo ([id number])[facility] ([facility])[address] [place] [address] Hematocrit (Bld) [Volume fraction] 29.5 % Low 36.0-46.0 [facility] Comment on above: Performed By: #### 5 8410-2 ####JANETH Galo ([id number])[facility] ([facility])[address] [place] [address] Hemoglobin (Bld) [Mass/Vol] 8.6 g/dL Low 12.0-16.0 [facility] Comment on above: Performed By: #### 5 8410-2 ####JANETH Galo ([id number])[facility] ([facility])[address] [place] [address] MCH (RBC) [Entitic mass] 24.8 pg Low 26.0-34.0 [facility] Comment on above: Performed By: #### 5 8410-2 ####JANETH Galo ([id number])[facility] ([facility])[address] [place] [address] MCHC (RBC) [Mass/Vol] 29.2 g/dL Low 32.0-36.0 [facility] Comment on above: Performed By: #### 5 8410-2 ####JANETH Galo ([id number])[facility] ([facility])[address] [place] [address] MCV (RBC) [Entitic vol] 85 fL Normal 80-100 [facility] Comment on above: Performed By: #### 5 8410-2 ####JANETH Galo ([id number])[facility] ([facility])[address] [place] [address] Nucleated RBC/100 WBC (Bld) [Ratio] 0.7 /100 WBCs High 0.0-0.0 [facility] Comment on above: Performed By: #### 5 8410-2 ####JANETH Galo ([id number])[facility] ([facility])[address] [place] [address] Platelets (Bld) [#/Vol] 548 x10*3/uL High 150-450 [facility] Comment on above: Performed By: #### 5 8410-2 ####JANETH Galo ([id number])[facility] ([facility])[address] [place] [address] RBC (Bld) [#/Vol] 3.47 x10*6/uL Low 4.00-5.20 [facility] Comment on above: Performed By: #### 5 8410-2 ####JANETH Galo ([id number])[facility] ([facility])[address] [place] [address] WBC (Bld) [#/Vol] 8.5 x10*3/uL Normal 4.4-11.3 [facility] Comment on above: Performed By: #### 5 8410-2 ####JANETH Galo ([id number])[facility] ([facility])[address] [place] [address] Erythrocyte distribution width (RBC) [Ratio] 19.4 % High 11.5 - 14.5 % [facility] Hematocrit (Bld) [Volume fraction] 23.8 % Low 36.0 - 46.0 % [facility] Hemoglobin (Bld) [Mass/Vol] 6.9 g/dL Low 12.0 - 16.0 g/dL [facility] Interpretation and review of laboratory results Abnormal [facility] MCH (RBC) [Entitic mass] 24 pg Low 26.0 - 34.0 pg [facility] MCHC (RBC) [Mass/Vol] 29 g/dL Low 32.0 - 36.0 g/dL [facility] MCV (RBC) [Entitic vol] 83 fL 80 - 100 fL [facility] Nucleated RBC/100 WBC (Bld) [Ratio] 0.8 % High [facility] Platelets (Bld) [#/Vol] 574 10*3/uL High [facility] RBC (Bld) [#/Vol] 2.87 10*6/uL Low [facility] WBC (Bld) [#/Vol] 8.3 10*3/uL [facility] Erythrocyte distribution width (RBC) [Ratio] 19.4 % High 11.5-14.5 [facility] Comment on above: Performed By: #### 5 8410-2 ####JANETH Galo ([id number])[facility] ([facility])[address] [place] [address] Hematocrit (Bld) [Volume fraction] 23.8 % Low 36.0-46.0 [facility] Comment on above: Performed By: #### 5 8410-2 ####JANETH Galo (55159)[facility] ([facility])[id number] [place] [address] Hemoglobin (Bld) [Mass/Vol] 6.9 g/dL Low 12.0-16.0 [facility] Comment on above: Performed By: #### 5 8410-2 ####JANETH Galo (49124)[facility] ([facility])[address] [place] [address] MCH (RBC) [Entitic mass] 24.0 pg Low 26.0-34.0 [facility] Comment on above: Performed By: #### 5 8410-2 ####JANETH Galo ([id number])[facility] ([facility])[address] [place] [address] MCHC (RBC) [Mass/Vol] 29.0 g/dL Low 32.0-36.0 [facility] Comment on above: Performed By: #### 5 8410-2 ####JANETH Galo ([id number])[facility] ([facility])[address] [place] [address] MCV (RBC) [Entitic vol] 83 fL Normal 80-100 [facility] Comment on above: Performed By: #### 5 8410-2 ####JANETH Galo ([id number])[facility] ([facility])[address] [place] [address] Nucleated RBC/100 WBC (Bld) [Ratio] 0.8 /100 WBCs High 0.0-0.0 [facility] Comment on above: Performed By: #### 5 8410-2 ####JANETH Galo ([id number])[facility] ([facility])[address] [place] [address] Platelets (Bld) [#/Vol] 574 x10*3/uL High 150-450 [facility] Comment on above: Performed By: #### 5 8410-2 ####JANETH Galo ([id number])[facility] ([facility])[address] [place] [address] RBC (Bld) [#/Vol] 2.87 x10*6/uL Low 4.00-5.20 [facility] Comment on above: Performed By: #### 5 8410-2 ####JANETH Galo ([id number])[facility] ([facility])[address] [place] [address] WBC (Bld) [#/Vol] 8.3 x10*3/uL Normal 4.4-11.3 [facility] Comment on above: Performed By: #### 5 8410-2 ####JANETH Galo ([id number])[facility] ([facility])[id number] [place] [address] Prepare RBC: 1 Unitson 05-08 Blood Expiration Date 05/27/2024 11:59:00 PM EDT [facility] Dispense Status TR [facility] PRODUCT BLOOD TYPE 6200 [facility] PRODUCT CODE [id number] [facility] Unit ABO A [facility] Unit Number [id number] [facility] Unit RH Positive [facility] UNIT VOLUME 350 [facility] XM INTEP COMP [facility] Tissue/Wound Culture/SmearOr dered By: Bailee Galloway on 05-08-2024 Bacteria identified Cx Nom (Unsp spec) (1+) Rare Mixed Skin Microorganisms [facility] Basic metabolic 2000 panelon 05-07-2024 Anion gap [Moles/Vol] 12 mmol/L 10 - 2 0 mmol/L [facility] Calcium [Mass/Vol] 8.3 mg/dL Low 8.6 - 10. 6 mg/dL [facility] Chloride [Moles/Vol] 102 mmol/L 98 - 10 7 mmol/L [facility] CO2 [Moles/Vol] 25 mmol/L 21 - 32 mmol/L [facility] Creatinine [Mass/Vol] 0.74 mg/dL 0.50 - 1.05 mg/dL [facility] eGFR - PINF [facility] Glucose [Mass/Vol] 102 mg/dL High 74 - 99 mg/dL [facility] Interpretation and review of laboratory results Abnormal [facility] Potassium [Moles/Vol] 4.5 mmol/L 3.5 - 5.3 mmol/L [facility] Sodium [Moles/Vol] 134 mmol/L Low 136 - 145 mmol/L [facility] Urea nitrogen [Mass/Vol] 13 mg/dL 6 - 23 mg/dL [facility] Anion gap [Moles/Vol] 12 mmol/L Normal 10-20 [facility] Comment on above: Performed By: #### 2 4321-2 ####JANETH Galo ([id number])[facility] ([facility])[address] [place] [address] Calcium [Mass/Vol] 8.3 mg/dL Low 8.6-10.6 [facility] Comment on above: Performed By: #### 2 4321-2 ####JANETH Galo ([id number])[facility] ([facility])[address] [place] [address] Chloride [Moles/Vol] 102 mmol/L Normal 98-107 [facility] Comment on above: Performed By: #### 2 4321-2 ####JANETH GRAFF L ([id number])[facility] ([facility])[address] [place] [address] CO2 [Moles/Vol] 25 mmol/L Normal 21-32 [facility] Comment on above: Performed By: #### 2 4321-2 ####JANETH GRAFF L ([id number])[facility] ([facility])[address] [place] [address] Creatinine [Mass/Vol] 0.74 mg/dL Normal 0.50-1.05 [facility] Comment on above: Performed By: #### 2 4321-2 ####JANETH Galo (71641)[facility] ([facility])[address] [place] [address] GFR/1.73 sq M.predicted MDRD (S/P/Bld) [Vol rate/Area] mL/min/{1.73_m2} Normal >60 [facility] Comment on above: Result Comment: Calc ulations of estimated GFR are performed using the 2020 CKD-EPI Study Refit equation without the race variable for the IDMS-Traceable creatinine methods.https://jasn.asnjournals.org/content/early// N.[id number] Performed By: #### 2 4321-2 ####JANETH Glao ([id number])[facility] ([facility])[address] [place] [address] Glucose [Mass/Vol] 102 mg/dL High 74-99 [facility] Comment on above: Performed By: #### 2 4321-2 ####JANETH Galo ([id number])[facility] ([facility])[address] [place] [address] Potassium [Moles/Vol] 4.5 mmol/L Normal 3.5-5.3 [facility] Comment on above: Performed By: #### 2 4321-2 ####JANETH Galo ([id number])[facility] ([facility])[address] [place] [address] Sodium [Moles/Vol] 134 mmol/L Low 136-145 [facility] Comment on above: Performed By: #### 2 4321-2 ####JANETH GRAFF L ([id number])[facility] ([facility])[address] [place] [address] Urea nitrogen [Mass/Vol] 13 mg/dL Normal 6-23 [facility] Comment on above: Performed By: #### 2 4321-2 ####JANETH GRAFF L ([id number])[facility] ([facility])[address] [place] [address] CBC panel Auto (Bld)on 05-07 Erythrocyte distribution width (RBC) [Ratio] 19 % High 11.5 - 14.5 % [facility] Hematocrit (Bld) [Volume fraction] 25.4 % Low 36.0 - 46.0 % [facility] Hemoglobin (Bld) [Mass/Vol] 7.7 g/dL Low 12.0 - 16.0 g/dL [facility] Interpretation and review of laboratory results Abnormal [facility] MCH (RBC) [Entitic mass] 24.5 pg Low 26.0 - 34.0 pg [facility] MCHC (RBC) [Mass/Vol] 30.3 g/dL Low 32.0 - 36.0 g/dL [facility] MCV (RBC) [Entitic vol] 81 fL 80 - 100 fL [facility] Nucleated RBC/100 WBC (Bld) [Ratio] 0.6 % High [facility] Platelets (Bld) [#/Vol] 611 10*3/uL High [facility] RBC (Bld) [#/Vol] 3.14 10*6/uL Low [facility] WBC (Bld) [#/Vol] 11.3 10*3/uL [facility] Erythrocyte distribution width (RBC) [Ratio] 19.0 % High 11.5-14.5 [facility] Comment on above: Performed By: #### 5 8410-2 ####JANETH Galo ([id number])[facility] ([facility])[address] [place] [address] Hematocrit (Bld) [Volume fraction] 25.4 % Low 36.0-46.0 [facility] Comment on above: Performed By: #### 5 8410-2 ####JANETH Galo ([id number])[facility] ([facility])[address] [place] [address] Hemoglobin (Bld) [Mass/Vol] 7.7 g/dL Low 12.0-16.0 [facility] Comment on above: Performed By: #### 5 8410-2 ####JANETH Galo ([id number])[facility] ([facility])[address] [place] [address] MCH (RBC) [Entitic mass] 24.5 pg Low 26.0-34.0 [facility] Comment on above: Performed By: #### 5 8410-2 ####JANETH Galo ([id number])[facility] ([facility])[address] [place] [address] MCHC (RBC) [Mass/Vol] 30.3 g/dL Low 32.0-36.0 [facility] Comment on above: Performed By: #### 5 8410-2 ####JANETH Galo ([id number])[facility] ([facility])[address] [place] [address] MCV (RBC) [Entitic vol] 81 fL Normal 80-100 [facility] Comment on above: Performed By: #### 5 8410-2 ####JANETH Galo ([id number])[facility] ([facility])[address] [place] [address] Nucleated RBC/100 WBC (Bld) [Ratio] 0.6 /100 WBCs High 0.0-0.0 [facility] Comment on above: Performed By: #### 5 8410-2 ####JANETH Galo ([id number])[facility] ([facility])[address] [place] [address] Platelets (Bld) [#/Vol] 611 x10*3/uL High 150-450 [facility] Comment on above: Performed By: #### 5 8410-2 ####JANETH Galo ([id number])[facility] ([facility])[address] [place] [address] RBC (Bld) [#/Vol] 3.14 x10*6/uL Low 4.00-5.20 [facility] Comment on above: Performed By: #### 5 8410-2 ####JANETH Galo ([id number])[facility])[address] [place] [address] WBC (Bld) [#/Vol] 11.3 x10*3/uL Normal 4.4-11.3 [facility] Comment on above: Performed By: #### 5 8410-2 ####JANETH Galo ([id number])[facility] ([facility])[address] [place] [address]75[address] Basic metabolic 2000 panelon 05-06-2024 Anion gap [Moles/Vol] 13 mmol/L 10 - 2 0 mmol/L [facility] Calcium [Mass/Vol] 8.4 mg/dL Low 8.6 - 10. 6 mg/dL [facility] Chloride [Moles/Vol] 102 mmol/L 98 - 10 7 mmol/L [facility] CO2 [Moles/Vol] 23 mmol/L 21 - 32 mmol/L [facility] Creatinine [Mass/Vol] 0.75 mg/dL 0.50 - 1.05 mg/dL [facility] eGFR - PINF [facility] Glucose [Mass/Vol] 91 mg/dL 74 - 99 mg/dL [facility] Interpretation and review of laboratory results Abnormal [facility] Potassium [Moles/Vol] 4.2 mmol/L 3.5 - 5.3 mmol/L [facility] Sodium [Moles/Vol] 134 mmol/L Low 136 - 145 mmol/L [facility] Urea nitrogen [Mass/Vol] 11 mg/dL 6 - 23 mg/dL [facility] Anion gap [Moles/Vol] 13 mmol/L Normal 10-20 [facility] Comment on above: Performed By: #### 2 4321-2 ####JANETH Galo ([id number])[facility])[address] [place] [address] Calcium [Mass/Vol] 8.4 mg/dL Low 8.6-10.6 [facility] Comment on above: Performed By: #### 2 4321-2 ####JANETH Galo ([id number])[facility])[address] [place] [address] Chloride [Moles/Vol] 102 mmol/L Normal 98-107 [facility] Comment on above: Performed By: #### 2 4321-2 ####JANETH Galo ([id number])[facility])[address] [place] [address] CO2 [Moles/Vol] 23 mmol/L Normal 21-32 [facility] Comment on above: Performed By: #### 2 4321-2 ####JANETH Galo ([id number])[facility])[address] [place] [address] Creatinine [Mass/Vol] 0.75 mg/dL Normal 0.50-1.05 [facility] Comment on above: Performed By: #### 2 4321-2 ####JANETH Galo ([id number])[facility] ([facility])[address] [place] [address] GFR/1.73 sq M.predicted MDRD (S/P/Bld) [Vol rate/Area] mL/min/{1.73_m2} Normal >60 [facility] Comment on above: Result Comment: Calc ulations of estimated GFR are performed using the 2020 CKD-EPI Study Refit equation without the race variable for the IDMS-Traceable creatinine methods.https://jasn.asnjournals.org/content// N.5141758099 Performed By: #### 2 4321-2 ####JANETH Galo ([id number])[facility] ([facility])[address] [place] [address] Glucose [Mass/Vol] 91 mg/dL Normal 74-99 [facility] Comment on above: Performed By: #### 2 4321-2 ####JANETH Galo ([id number])[facility])[address] [place] [address] Potassium [Moles/Vol] 4.2 mmol/L Normal 3.5-5.3 [facility] Comment on above: Performed By: #### 2 4321-2 ####JANETH Galo ([id number])[facility])[address] [place] [address] Sodium [Moles/Vol] 134 mmol/L Low 136-145 [facility] Comment on above: Performed By: #### 2 4321-2 ####JANETH Galo ([id number])[facility])[address] [place] [address] Urea nitrogen [Mass/Vol] 11 mg/dL Normal 6-23 [facility] Comment on above: Performed By: #### 2 4321-2 ####JANETH Galo ([id number])[facility])[address] [place] [address] CBC panel Auto (Bld)on 05-06 Erythrocyte distribution width (RBC) [Ratio] 18.7 % High 11.5 - 14.5 % [facility] Hematocrit (Bld) [Volume fraction] 25.7 % Low 36.0 - 46.0 % [facility] Hemoglobin (Bld) [Mass/Vol] 7.7 g/dL Low 12.0 - 16.0 g/dL [facility] Interpretation and review of laboratory results Abnormal [facility] MCH (RBC) [Entitic mass] 24.4 pg Low 26.0 - 34.0 pg [facility] MCHC (RBC) [Mass/Vol] 30 g/dL Low 32.0 - 36.0 g/dL [facility] MCV (RBC) [Entitic vol] 82 fL 80 - 100 fL [facility] Nucleated RBC/100 WBC (Bld) [Ratio] 0.2 % High [facility] Platelets (Bld) [#/Vol] 665 10*3/uL High [facility] RBC (Bld) [#/Vol] 3.15 10*6/uL Low [facility] WBC (Bld) [#/Vol] 10.9 10*3/uL [facility] Erythrocyte distribution width (RBC) [Ratio] 18.7 % High 11.5-14.5 [facility] Comment on above: Performed By: #### 5 8410-2 ####JANETH Galo ([id number])[facility] ([facility])[address] [place] [address]26 Hematocrit (Bld) [Volume fraction] 25.7 % Low 36.0-46.0 [facility] Comment on above: Performed By: #### 5 8410-2 ####JANETH Galo ([id number])[facility] ([facility])[address] [place] [address] Hemoglobin (Bld) [Mass/Vol] 7.7 g/dL Low 12.0-16.0 [facility] Comment on above: Performed By: #### 5 8410-2 ####JANETH Galo ([id number])[facility])[address] [place] [address]35 MCH (RBC) [Entitic mass] 24.4 pg Low 26.0-34.0 [facility] Comment on above: Performed By: #### 5 8410-2 ####JANETH Galo ([id number])[facility] ([facility])[address] [place] [address]20 MCHC (RBC) [Mass/Vol] 30.0 g/dL Low 32.0-36.0 [facility] Comment on above: Performed By: #### 5 8410-2 ####JANETH Galo ([id number])[facility] ([facility])[address] [place] [address] 18429 MCV (RBC) [Entitic vol] 82 fL Normal 80-100 [facility] Comment on above: Performed By: #### 5 8410-2 ####JANETH Galo ([id number])[facility] ([facility])[address] [place] [address] 93800 Nucleated RBC/100 WBC (Bld) [Ratio] 0.2 /100 WBCs High 0.0-0.0 [facility] Comment on above: Performed By: #### 5 8410-2 ####JANETH Galo ([id number])[facility] ([facility])[address] [place] [address] Platelets (Bld) [#/Vol] 665 x10*3/uL High 150-450 [facility] Comment on above: Performed By: #### 5 8410-2 ####JANETH Galo ([id number])[facility] ([facility])[address] [place] [address] 03124 RBC (Bld) [#/Vol] 3.15 x10*6/uL Low 4.00-5.20 [facility] Comment on above: Performed By: #### 5 8410-2 ####JANETH Galo ([id number])[facility] ([facility])[address] [place] [address] WBC (Bld) [#/Vol] 10.9 x10*3/uL Normal 4.4-11.3 [facility] Comment on above: Performed By: #### 5 8410-2 ####JANETH Galo ([id number])[facility] ([facility])[address] [place] [address]452 Bacteria identifiedon 2024 Bacteria identified Cx Nom (Unsp spec) [facility] Comment on above: Performed By: #### 6 463-4 ####JANETH Galo ([id number])[facility] ([facility])[address] [place] [address] 00267 Basic metabolic 2000 panelon 05-05-2024 Anion gap [Moles/Vol] 16 mmol/L 10 - 2 0 mmol/L [facility] Calcium [Mass/Vol] 8.6 mg/dL 8.6 - 10. 6 mg/dL [facility] Chloride [Moles/Vol] 100 mmol/L 98 - 10 7 mmol/L [facility] CO2 [Moles/Vol] 24 mmol/L 21 - 32 mmol/L [facility] Creatinine [Mass/Vol] 0.76 mg/dL 0.50 - 1.05 mg/dL [facility] eGFR - PINF [facility] Glucose [Mass/Vol] 93 mg/dL 74 - 99 mg/dL [facility] Interpretation and review of laboratory results Normal [facility] Potassium [Moles/Vol] 4.4 mmol/L 3.5 - 5.3 mmol/L [facility] Sodium [Moles/Vol] 136 mmol/L 136 - 145 mmol/L [facility] Urea nitrogen [Mass/Vol] 15 mg/dL 6 - 23 mg/dL [facility] Anion gap [Moles/Vol] 16 mmol/L Normal 10-20 [facility] Comment on above: Performed By: #### 2 4321-2 ####JNAETH GRAFF L ([id number])[facility] ([facility])[address] [place] [address] Calcium [Mass/Vol] 8.6 mg/dL Normal 8.6-10.6 [facility] Comment on above: Performed By: #### 2 4321-2 ####JANETH GRAFF L ([id number])[facility] ([facility])[address] [place] [address] Chloride [Moles/Vol] 100 mmol/L Normal 98-107 [facility] Comment on above: Performed By: #### 2 4321-2 ####JANETH CONNORMOTZLETI L ([id number])[facility] ([facility])[address] [place] [address] CO2 [Moles/Vol] 24 mmol/L Normal 21-32 [facility] Comment on above: Performed By: #### 2 4321-2 ####JANETH MCDONALDTZER L (52463)[facility] ([facility])[address] [place] [address] Creatinine [Mass/Vol] 0.76 mg/dL Normal 0.50-1.05 [facility] Comment on above: Performed By: #### 2 4321-2 ####JANETH GRAFF L (85457)[facility] ([facility])[address] [place] [address] GFR/1.73 sq M.predicted MDRD (S/P/Bld) [Vol rate/Area] mL/min/{1.73_m2} Normal >60 [facility] Comment on above: Result Comment: Calc ulations of estimated GFR are performed using the 2020 CKD-EPI Study Refit equation without the race variable for the IDMS-Traceable creatinine methods.https://jasn.asnjournals.org/content/early/ N.3370711386 Performed By: #### 2 4321-2 ####JANETH Galo ([id number])[facility] ([facility])[address] [place] [address] Glucose [Mass/Vol] 93 mg/dL Normal 74-99 [facility] Comment on above: Performed By: #### 2 4321-2 ####JANETH GRAFF L ([id number])[facility] ([facility])[address] [place] [address] Potassium [Moles/Vol] 4.4 mmol/L Normal 3.5-5.3 [facility] Comment on above: Performed By: #### 2 4321-2 ####JANETH CONNORMOTZER L (36477)[facility] ([facility])[address] [place] [address] Sodium [Moles/Vol] 136 mmol/L Normal 136-145 [facility] Comment on above: Performed By: #### 2 4321-2 ####JANETH CONNORMOTZER L (27612)[facility])[address] [place] [address] Urea nitrogen [Mass/Vol] 15 mg/dL Normal 6-23 [facility] Comment on above: Performed By: #### 2 4321-2 ####JANETH CONNORMOTZER L ([id number])[facility] ([facility])[address] [place] [address] CBC panel Auto (Bld)on 05-05 Erythrocyte distribution width (RBC) [Ratio] 18.9 % High 11.5 - 14.5 % [facility] Hematocrit (Bld) [Volume fraction] 25.6 % Low 36.0 - 46.0 % [facility] Hemoglobin (Bld) [Mass/Vol] 7.4 g/dL Low 12.0 - 16.0 g/dL [facility] Interpretation and review of laboratory results Abnormal [facility] MCH (RBC) [Entitic mass] 23.4 pg Low 26.0 - 34.0 pg [facility] MCHC (RBC) [Mass/Vol] 28.9 g/dL Low 32.0 - 36.0 g/dL [facility] MCV (RBC) [Entitic vol] 81 fL 80 - 100 fL [facility] Nucleated RBC/100 WBC (Bld) [Ratio] 0.2 % High [facility] Platelets (Bld) [#/Vol] 719 10*3/uL High [facility] RBC (Bld) [#/Vol] 3.16 10*6/uL Low [facility] WBC (Bld) [#/Vol] 8.2 10*3/uL [facility] Erythrocyte distribution width (RBC) [Ratio] 18.9 % High 11.5-14.5 [facility] Comment on above: Performed By: #### 5 8410-2 ####JANETH Galo ([id number])[facility] ([facility])[address] [place] [address]18 Hematocrit (Bld) [Volume fraction] 25.6 % Low 36.0-46.0 [facility] Comment on above: Performed By: #### 5 8410-2 ####JANETH Galo ([id number])[facility] ([facility])[address] [place] [address] Hemoglobin (Bld) [Mass/Vol] 7.4 g/dL Low 12.0-16.0 [facility] Comment on above: Performed By: #### 5 8410-2 ####JANETH Galo (47909)[facility] ([facility])[address] [place] [address] MCH (RBC) [Entitic mass] 23.4 pg Low 26.0-34.0 [facility] Comment on above: Performed By: #### 5 8410-2 ####JANETH Galo ([id number])[facility])[address] [place] [address] MCHC (RBC) [Mass/Vol] 28.9 g/dL Low 32.0-36.0 [facility] Comment on above: Performed By: #### 5 8410-2 ####JANETH Galo ([id number])[facility] ([facility])[address] [place] [address] MCV (RBC) [Entitic vol] 81 fL Normal 80-100 [facility] Comment on above: Performed By: #### 5 8410-2 ####JANETH Galo (52489)[facility])[address] [place] [address] Nucleated RBC/100 WBC (Bld) [Ratio] 0.2 /100 WBCs High 0.0-0.0 [facility] Comment on above: Performed By: #### 5 8410-2 ####JANETH Galo (78240)[facility] ([facility])[address] [place] [address] Platelets (Bld) [#/Vol] 719 x10*3/uL High 150-450 [facility] Comment on above: Performed By: #### 5 8410-2 ####JANETH Galo ([id number])[facility])[address] [place] [address] RBC (Bld) [#/Vol] 3.16 x10*6/uL Low 4.00-5.20 [facility] Comment on above: Performed By: #### 5 8410-2 ####JANETH Galo ([id number])[facility])[address] [place] [address] WBC (Bld) [#/Vol] 8.2 x10*3/uL Normal 4.4-11.3 [facility] Comment on above: Performed By: #### 5 8410-2 ####JANETH Galo ([id number])[facility] ([facility])[address] [place] [address] FL FLUORO IMAGES NO CHARGEon 05-05-2024 FL FLUORO IMAGES NO CHARGE These images are not reportable by radiology and will not be interpreted by Radiologists. Normal [facility] Fungus identifiedon 05-06-19 25 Fungus identified Cx Nom (Unsp spec) Abnormal [facility] Comment on above: Performed By: #### 5 80-1 ####JANETH Galo ([id number])[facility] ([facility])[address] [place] [address] HCG ( test) Ql (U)o n 05-05-2024 Interpretation and review of laboratory results Normal [facility] Work Phone: Preg Test, Ur Negative Negative [facility] Work Phone: [facility] Work Phone: Peripheral Blockon 5 [facility] Work Phone: [facility] Work Phone: Prepare RBC: 1 Unitson 05-05 Blood Expiration Date 05/25/2024 11:59:00 PM EDT [facility] Dispense Status TR [facility] PRODUCT BLOOD TYPE 6200 [facility] PRODUCT CODE [id number] [facility] Unit ABO A [facility] Unit Number [id number] [facility] Unit RH Positive [facility] UNIT VOLUME 350 [facility] XM INTEP COMP 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 6 mg/dL [facility] Chloride [Moles/Vol] 100 mmol/L 98 - 10 7 mmol/L [facility] CO2 [Moles/Vol] 24 mmol/L 21 - 32 mmol/L [facility] Creatinine [Mass/Vol] 0.86 mg/dL 0.50 - 1.05 mg/dL [facility] GFR/1.73 sq M.predicted among non-blacks MDRD (S/P/Bld) [Vol rate/Area] 81 mL/min/{1.73_m2} - PINF [facility] Glucose [Mass/Vol] 102 mg/dL High 74 - 99 mg/dL [facility] Interpretation and review of laboratory results Abnormal [facility] Potassium [Moles/Vol] 4.4 mmol/L 3.5 - 5.3 mmol/L [facility] Sodium [Moles/Vol] 133 mmol/L Low 136 - 145 mmol/L [facility] Urea nitrogen [Mass/Vol] 18 mg/dL 6 - 23 mg/dL [facility] Anion gap [Moles/Vol] 13 mmol/L Normal 10-20 [facility] Comment on above: Performed By: #### 2 4321-2 ####JANETH Galo ([id number])[facility] ([facility])[address] [place] [address] Calcium [Mass/Vol] 8.5 mg/dL Low 8.6-10.6 [facility] Comment on above: Performed By: #### 2 4321-2 ####JANETH Galo ([id number])[facility])[address] [place] [address] Chloride [Moles/Vol] 100 mmol/L Normal 98-107 [facility] Comment on above: Performed By: #### 2 4321-2 ####JANETH Galo (50435)[facility])[address] [place] [address] CO2 [Moles/Vol] 24 mmol/L Normal 21-32 [facility] Comment on above: Performed By: #### 2 4321-2 ####JANETH Galo ([id number])[facility] ([facility])[address] [place] [address] Creatinine [Mass/Vol] 0.86 mg/dL Normal 0.50-1.05 [facility] Comment on above: Performed By: #### 2 4321-2 ####JANETH Galo ([id number])[facility] ([facility])[address] [place] [address] Glomerular filtration rate/1.73 sq M.predicted 81 mL/min/1.73m*2 Normal >60 [facility] Comment on above: Result Comment: Calc ulations of estimated GFR are performed using the 2020 CKD-EPI Study Refit equation without the race variable for the IDMS-Traceable creatinine methods.https://jasn.asnjournals.org/content/early// N.8648297491 Performed By: #### 2 4321-2 ####JANETH Galo ([id number])[facility] ([facility])[address] [place] [address] Glucose [Mass/Vol] 102 mg/dL High 74-99 [facility] Comment on above: Performed By: #### 2 4321-2 ####JANETH Galo ([id number])[facility] ([facility])[address] [place] [address] Potassium [Moles/Vol] 4.4 mmol/L Normal 3.5-5.3 [facility] Comment on above: Performed By: #### 2 4321-2 ####JANETH Galo ([id number])[facility])[address] [place] [address] Sodium [Moles/Vol] 133 mmol/L Low 136-145 [facility] Comment on above: Performed By: #### 2 4321-2 ####JANETH Galo (54641)[facility])[address] [place] [address] Urea nitrogen [Mass/Vol] 18 mg/dL Normal 6- [facility] Comment on above: Performed By: #### 2 4321-2 ####JANETH Galo ([id number])[facility])[address] [place] [address] CBC panel Auto (Bld)on 05-04 Erythrocyte distribution width (RBC) [Ratio] 18.8 % High 11.5 - 14.5 % [facility] Hematocrit (Bld) [Volume fraction] 26.3 % Low 36.0 - 46.0 % [facility] Hemoglobin (Bld) [Mass/Vol] 7.8 g/dL Low 12.0 - 16.0 g/dL [facility] Interpretation and review of laboratory results Abnormal [facility] MCH (RBC) [Entitic mass] 24.1 pg Low 26.0 - 34.0 pg [facility] MCHC (RBC) [Mass/Vol] 29.7 g/dL Low 32.0 - 36.0 g/dL [facility] MCV (RBC) [Entitic vol] 81 fL 80 - 100 fL [facility] Nucleated RBC/100 WBC (Bld) [Ratio] 0 % [facility] Platelets (Bld) [#/Vol] 724 10*3/uL High [facility] RBC (Bld) [#/Vol] 3.23 10*6/uL Low [facility] WBC (Bld) [#/Vol] 7.6 10*3/uL [facility] Erythrocyte distribution width (RBC) [Ratio] 18.8 % High 11.5-14.5 [facility] Comment on above: Performed By: #### 5 8410-2 ####JANETH Galo ([id number])[facility] ([facility])[id number] [place] [address] Hematocrit (Bld) [Volume fraction] 26.3 % Low 36.0-46.0 [facility] Comment on above: Performed By: #### 5 8410-2 ####JANETH Galo ([id number])[facility] ([facility])[address] [place] [address]85[address] Hemoglobin (Bld) [Mass/Vol] 7.8 g/dL Low 12.0-16.0 [facility] Comment on above: Performed By: #### 5 8410-2 ####JANETH Galo ([id number])[facility] ([facility])[address] [place] [address] 25819 MCH (RBC) [Entitic mass] 24.1 pg Low 26.0-34.0 [facility] Comment on above: Performed By: #### 5 8410-2 ####JANETH Galo ([id number])[facility] ([facility])[address] [place] [address]139 MCHC (RBC) [Mass/Vol] 29.7 g/dL Low 32.0-36.0 [facility] Comment on above: Performed By: #### 5 8410-2 ####JANETH Galo ([id number])[facility] ([facility])[address] [place] [address] MCV (RBC) [Entitic vol] 81 fL Normal 80-100 [facility] Comment on above: Performed By: #### 5 8410-2 ####JANETH Galo ([id number])[facility])[address] [place] [address] 94571 Nucleated RBC/100 WBC (Bld) [Ratio] 0.0 /100 WBCs Normal 0.0-0.0 [facility] Comment on above: Performed By: #### 5 8410-2 ####JANETH Galo ([id number])[facility] ([facility])[address] [place] [address] Platelets (Bld) [#/Vol] 724 x10*3/uL High 150-450 [facility] Comment on above: Performed By: #### 5 8410-2 ####JANETH Galo ([id number])[facility] ([facility])[address] [place] [address] RBC (Bld) [#/Vol] 3.23 x10*6/uL Low 4.00-5.20 [facility] Comment on above: Performed By: #### 5 8410-2 ####JANETH Galo ([id number])[facility] ([facility])[address] [place] [address] WBC (Bld) [#/Vol] 7.6 x10*3/uL Normal 4.4-11.3 [facility] Comment on above: Performed By: #### 5 8410-2 ####JANETH Galo ([id number])[facility] ([facility])[address] [place] [address] Basic metabolic 2000 panelon 05-03-2024 Anion gap [Moles/Vol] 11 mmol/L 10 - 2 0 mmol/L [facility] Calcium [Mass/Vol] 9 mg/dL 8.6 - 10. 6 mg/dL [facility] Chloride [Moles/Vol] 99 mmol/L 98 - 10 7 mmol/L [facility] CO2 [Moles/Vol] 26 mmol/L 21 - 32 mmol/L [facility] Creatinine [Mass/Vol] 0.95 mg/dL 0.50 - 1.05 mg/dL [facility] GFR/1.73 sq M.predicted among non-blacks MDRD (S/P/Bld) [Vol rate/Area] 72 mL/min/{1.73_m2} - PINF [facility] Glucose [Mass/Vol] 132 mg/dL High 74 - 99 mg/dL [facility] Interpretation and review of laboratory results Abnormal [facility] Potassium [Moles/Vol] 5 mmol/L 3.5 - 5.3 mmol/L [facility] Sodium [Moles/Vol] 131 mmol/L Low 136 - 145 mmol/L [facility] Urea nitrogen [Mass/Vol] 14 mg/dL 6 - 23 mg/dL [facility] Anion gap [Moles/Vol] 11 mmol/L Normal 10-20 [facility] Comment on above: Performed By: #### 2 4321-2 ####JANETH Galo ([id number])[facility] ([facility])[address] [place] [address] Calcium [Mass/Vol] 9.0 mg/dL Normal 8.6-10.6 [facility] Comment on above: Performed By: #### 2 4321-2 ####JANETH GRAFF L ([id number])[facility] ([facility])[address] [place] [address] Chloride [Moles/Vol] 99 mmol/L Normal 98-107 [facility] Comment on above: Performed By: #### 2 4321-2 ####JANETH GRAFF L ([id number])[facility] ([facility])[address] [place] [address] CO2 [Moles/Vol] 26 mmol/L Normal 21-32 [facility] Comment on above: Performed By: #### 2 4321-2 ####JANETH GRAFF L ([id number])[facility] ([facility])[address] [place] [address] Creatinine [Mass/Vol] 0.95 mg/dL Normal 0.50-1.05 [facility] Comment on above: Performed By: #### 2 4321-2 ####JANETH GRAFF L ([id number])[facility] ([facility])[address] [place] [address] Glomerular filtration rate/1.73 sq M.predicted 72 mL/min/1.73m*2 Normal >60 [facility] Comment on above: Result Comment: Calc ulations of estimated GFR are performed using the 2020 CKD-EPI Study Refit equation without the race variable for the IDMS-Traceable creatinine methods.https://jasn.asnjournals.org/content// N.2308142973 Performed By: #### 2 4321-2 ####JANETH Galo ([id number])[facility] ([facility])[address] [place] [address] Glucose [Mass/Vol] 132 mg/dL High 74-99 [facility] Comment on above: Performed By: #### 2 4321-2 ####JANETH Galo ([id number])[facility] ([facility])[address] [place] [address] Potassium [Moles/Vol] 5.0 mmol/L Normal 3.5-5.3 [facility] Comment on above: Performed By: #### 2 4321-2 ####JANETH Galo ([id number])[facility] ([facility])[address] [place] [address] Sodium [Moles/Vol] 131 mmol/L Low 136-145 [facility] Comment on above: Performed By: #### 2 4321-2 ####JANETH Galo ([id number])[facility] ([facility])[address] [place] [address] Urea nitrogen [Mass/Vol] 14 mg/dL Normal 6-23 [facility] Comment on above: Performed By: #### 2 4321-2 ####JANETH Galo ([id number])[facility] ([facility])[address] [place] [address] Anion gap [Moles/Vol] 12 mmol/L 10 - 2 0 mmol/L [facility] Calcium [Mass/Vol] 8.8 mg/dL 8.6 - 10. 6 mg/dL [facility] Chloride [Moles/Vol] 99 mmol/L 98 - 10 7 mmol/L [facility] CO2 [Moles/Vol] 26 mmol/L 21 - 32 mmol/L [facility] Creatinine [Mass/Vol] 0.97 mg/dL 0.50 - 1.05 mg/dL [facility] GFR/1.73 sq M.predicted among non-blacks MDRD (S/P/Bld) [Vol rate/Area] 70 mL/min/{1.73_m2} - PINF [facility] Glucose [Mass/Vol] 87 mg/dL 74 - 99 mg/dL [facility] Interpretation and review of laboratory results Abnormal [facility] Potassium [Moles/Vol] 6.3 mmol/L Critically high 3.5 - 5.3 mmol/L [facility] Sodium [Moles/Vol] 131 mmol/L Low 136 - 145 mmol/L [facility] Urea nitrogen [Mass/Vol] 15 mg/dL 6 - 23 mg/dL [facility] Anion gap [Moles/Vol] 12 mmol/L Normal 10-20 [facility] Comment on above: Performed By: #### 2 4321-2 ####JANETH Galo ([id number])[facility] ([facility])[address] [place] [address] Calcium [Mass/Vol] 8.8 mg/dL Normal 8.6-10.6 [facility] Comment on above: Performed By: #### 2 4321-2 ####JAENTH GRAFF L ([id number])[facility] ([facility])[address] [place] [address] Chloride [Moles/Vol] 99 mmol/L Normal 98-107 [facility] Comment on above: Performed By: #### 2 4321-2 ####JANETH MCDONALDTZLETI L ([id number])[facility] ([facility])[address] [place] [address] CO2 [Moles/Vol] 26 mmol/L Normal 21-32 [facility] Comment on above: Performed By: #### 2 4321-2 ####JANETH GRAFF L ([id number])[facility] ([facility])[address] [place] [address] Creatinine [Mass/Vol] 0.97 mg/dL Normal 0.50-1.05 [facility] Comment on above: Performed By: #### 2 4321-2 ####JANETH Galo ([id number])[facility] ([facility])[address] [place] [address] Glomerular filtration rate/1.73 sq M.predicted 70 mL/min/1.73m*2 Normal >60 [facility] Comment on above: Result Comment: Calc ulations of estimated GFR are performed using the 2020 CKD-EPI Study Refit equation without the race variable for the IDMS-Traceable creatinine methods.https://jasn.asnjournals.org/content/early// N.3315421041 Performed By: #### 2 4321-2 ####JANETH Galo ([id number])[facility] ([facility])[address] [place] [address] Glucose [Mass/Vol] 87 mg/dL Normal 74-99 [facility] Comment on above: Performed By: #### 2 4321-2 ####JANETH Galo ([id number])[facility] ([facility])[address] [place] [address] Potassium [Moles/Vol] 6.3 mmol/L Critically high 3.5-5.3 [facility] Comment on above: Result Comment: MILD HEMOLYSIS DETECTED. The result may be falsely elevated due to hemolysis or other interferents. Clinical correlation is recommended. Repeat testing may be considered. Performed By: #### 2 4321-2 ####JANETH GRAFF L ([id number])[facility] ([facility])[address] [place] [address] Sodium [Moles/Vol] 131 mmol/L Low 136-145 [facility] Comment on above: Performed By: #### 2 4321-2 ####JANETH GRAFF L ([id number])[facility] ([facility])[address] [place] [address] Urea nitrogen [Mass/Vol] 15 mg/dL Normal 6-23 [facility] Comment on above: Performed By: #### 2 4321-2 ####JANETH Galo ([id number])[facility] ([facility])[address] [place] [address] Blood type and Indirect anti body screen panel (Bld)on 05-03-2024 ABO group Nom (Bld) A [facility] Blood group antibody screen Ql Negative [facility] D Ag Ql (Bld) Positive [facility] ABO group Nom (Bld) A Normal [facility] Comment on above: Performed By: #### 3 4532-2 ####JANETH Galo ([id number])[facility] ([facility])[address] [place] [address] Blood group antibody screen Ql Negative [facility] Comment on above: Performed By: #### 3 4532-2 ####JANETH Galo ([id number])[facility] ([facility])[address] [place] [address] D Ag Ql (Bld) Positive [facility] Comment on above: Performed By: #### 3 4532-2 ####JANETH Galo ([id number])[facility] ([facility])[address] [place] [address] CBC panel Auto (Bld)on 05-03 Erythrocyte distribution width (RBC) [Ratio] 19 % High 11.5 - 14.5 % [facility] Hematocrit (Bld) [Volume fraction] 28.4 % Low 36.0 - 46.0 % [facility] Hemoglobin (Bld) [Mass/Vol] 8.3 g/dL Low 12.0 - 16.0 g/dL [facility] Interpretation and review of laboratory results Abnormal [facility] MCH (RBC) [Entitic mass] 23.9 pg Low 26.0 - 34.0 pg [facility] MCHC (RBC) [Mass/Vol] 29.2 g/dL Low 32.0 - 36.0 g/dL [facility] MCV (RBC) [Entitic vol] 82 fL 80 - 100 fL [facility] Nucleated RBC/100 WBC (Bld) [Ratio] 0 % [facility] Platelets (Bld) [#/Vol] 811 10*3/uL High [facility] RBC (Bld) [#/Vol] 3.47 10*6/uL Low [facility] WBC (Bld) [#/Vol] 9.2 10*3/uL [facility] Erythrocyte distribution width (RBC) [Ratio] 19.0 % High 11.5-14.5 [facility] Comment on above: Performed By: #### 5 8410-2 ####JANETH Galo ([id number])[facility] ([facility])[address] [place] [address] Hematocrit (Bld) [Volume fraction] 28.4 % Low 36.0-46.0 [facility] Comment on above: Performed By: #### 5 8410-2 ####JANETH Galo ([id number])[facility] ([facility])[address] [place] [address] Hemoglobin (Bld) [Mass/Vol] 8.3 g/dL Low 12.0-16.0 [facility] Comment on above: Performed By: #### 5 8410-2 ####JANETH Galo ([id number])[facility] ([facility])[address] [place] [address] MCH (RBC) [Entitic mass] 23.9 pg Low 26.0-34.0 [facility] Comment on above: Performed By: #### 5 8410-2 ####JANETH Galo ([id number])[facility] ([facility])[address] [place] [address] MCHC (RBC) [Mass/Vol] 29.2 g/dL Low 32.0-36.0 [facility] Comment on above: Performed By: #### 5 8410-2 ####JANETH Galo ([id number])[facility] ([facility])[address] [place] [address] MCV (RBC) [Entitic vol] 82 fL Normal 80-100 [facility] Comment on above: Performed By: #### 5 8410-2 ####JANETH Galo ([id number])[facility] ([facility])[address] [place] [address] Nucleated RBC/100 WBC (Bld) [Ratio] 0.0 /100 WBCs Normal 0.0-0.0 [facility] Comment on above: Performed By: #### 5 8410-2 ####JANETH Galo ([id number])[facility] ([facility])[address] [place] [address] Platelets (Bld) [#/Vol] 811 x10*3/uL High 150-450 [facility] Comment on above: Performed By: #### 5 8410-2 ####JANETH Galo ([id number])[facility] ([facility])[address] [place] [address] RBC (Bld) [#/Vol] 3.47 x10*6/uL Low 4.00-5.20 [facility] Comment on above: Performed By: #### 5 8410-2 ####JANETH Galo ([id number])[facility] ([facility])[address] [place] [address] WBC (Bld) [#/Vol] 9.2 x10*3/uL Normal 4.4-11.3 [facility] Comment on above: Performed By: #### 5 8410-2 ####JANETH Galo ([id number])[facility] ([facility])[address] [place] [address] Fungal Culture/Smearon 05-03 Fungus identified Cx Nom (Unsp spec) (1+) Rare Mendy parapsilosis Abnormal [facility] Work Phone: Fungal Culture/SmearOrdered By: Comfort Vidal on 05-03-2024 Fungus identified Cx Nom (Unsp spec) 2 colonies Mendy parapsilosis Abnormal [facility] Fungus identified Cx Nom (Un sp spec)on 05-03-2024 Fungus identified Fungus stain Nom (Unsp spec) No fungal elements seen [facility] Work Phone: Interpretation and review of laboratory results Abnormal [facility] Work Phone: [facility] Work Phone: Fungus identified Cx Nom (Un sp spec)Ordered By: Comfort Vidal on 05-03-2024 Fungus identified Fungus stain Nom (Unsp spec) No fungal elements seen [facility] Interpretation and review of laboratory results Abnormal [facility] Nicotine + Metabolites, Urin ita 05-03-2024 Anabasine (U) [Mass/Vol] <5 ng/mL [facility] Cotinine (U) [Mass/Vol] 32 ng/mL [facility] Nicotine (U) [Mass/Vol] <15 ng/mL [facility] Zbrpa-0-Xhlnqialavwux ne (U) [Mass/Vol] 1178 ng/mL [facility] Basic metabolic 2000 panelon 05-02-2024 Anion gap [Moles/Vol] 13 mmol/L 10 - 2 0 mmol/L [facility] Calcium [Mass/Vol] 8.7 mg/dL 8.6 - 10. 6 mg/dL [facility] Chloride [Moles/Vol] 100 mmol/L 98 - 10 7 mmol/L [facility] CO2 [Moles/Vol] 24 mmol/L 21 - 32 mmol/L [facility] Creatinine [Mass/Vol] 1.03 mg/dL 0.50 - 1.05 mg/dL [facility] GFR/1.73 sq M.predicted among non-blacks MDRD (S/P/Bld) [Vol rate/Area] 66 mL/min/{1.73_m2} - PINF [facility] Glucose [Mass/Vol] 100 mg/dL High 74 - 99 mg/dL [facility] Interpretation and review of laboratory results Abnormal [facility] Potassium [Moles/Vol] 4.4 mmol/L 3.5 - 5.3 mmol/L [facility] Sodium [Moles/Vol] 133 mmol/L Low 136 - 145 mmol/L [facility] Urea nitrogen [Mass/Vol] 15 mg/dL 6 - 23 mg/dL [facility] Anion gap [Moles/Vol] 13 mmol/L Normal 10-20 [facility] Comment on above: Performed By: #### 2 4321-2 ####JANETH MCDONALDTZER L ([id number])[facility] ([facility])[address] [place] [address] Calcium [Mass/Vol] 8.7 mg/dL Normal 8.6-10.6 [facility] Comment on above: Performed By: #### 2 4321-2 ####JANETH SCHMOTZER L ([id number])[facility] ([facility])[address] [place] [address] Chloride [Moles/Vol] 100 mmol/L Normal 98-107 [facility] Comment on above: Performed By: #### 2 4321-2 ####JANETH SCHMOTZER L ([id number])[facility] ([facility])[address] [place] [address] CO2 [Moles/Vol] 24 mmol/L Normal 21-32 [facility] Comment on above: Performed By: #### 2 4321-2 ####JANETH CONNORMOTZER L ([id number])[facility] ([facility])[address] [place] [address] Creatinine [Mass/Vol] 1.03 mg/dL Normal 0.50-1.05 [facility] Comment on above: Performed By: #### 2 4321-2 ####JANETH SCHMOTZER L ([id number])[facility] ([facility])[address] [place] [address] Glomerular filtration rate/1.73 sq M.predicted 66 mL/min/1.73m*2 Normal >60 [facility] Comment on above: Result Comment: Calc ulations of estimated GFR are performed using the 2020 CKD-EPI Study Refit equation without the race variable for the IDMS-Traceable creatinine methods.https://jasn.asnjournals.org/content/early/ N.4453147174 Performed By: #### 2 4321-2 ####JANETH Galo ([id number])[facility] ([facility])[address] [place] [address] Glucose [Mass/Vol] 100 mg/dL High 74-99 [facility] Comment on above: Performed By: #### 2 4321-2 ####JANETH GRAFF L ([id number])[facility] ([facility])[address] [place] [address] Potassium [Moles/Vol] 4.4 mmol/L Normal 3.5-5.3 [facility] Comment on above: Performed By: #### 2 4321-2 ####JANETH Galo ([id number])[facility] ([facility])[address] [place] [address] Sodium [Moles/Vol] 133 mmol/L Low 136-145 [facility] Comment on above: Performed By: #### 2 4321-2 ####JANETH Galo ([id number])[facility] ([facility])[address] [place] [address] Urea nitrogen [Mass/Vol] 15 mg/dL Normal 6-23 [facility] Comment on above: Performed By: #### 2 4321-2 ####JANETH GRAFF L ([id number])[facility] ([facility])[address] [place] [address] CBC panel Auto (Bld)on 05-02 Erythrocyte distribution width (RBC) [Ratio] 18.8 % High 11.5 - 14.5 % [facility] Hematocrit (Bld) [Volume fraction] 26.6 % Low 36.0 - 46.0 % [facility] Hemoglobin (Bld) [Mass/Vol] 7.9 g/dL Low 12.0 - 16.0 g/dL [facility] Interpretation and review of laboratory results Abnormal [facility] MCH (RBC) [Entitic mass] 24.2 pg Low 26.0 - 34.0 pg [facility] MCHC (RBC) [Mass/Vol] 29.7 g/dL Low 32.0 - 36.0 g/dL [facility] MCV (RBC) [Entitic vol] 81 fL 80 - 100 fL [facility] Nucleated RBC/100 WBC (Bld) [Ratio] 0 % [facility] Platelets (Bld) [#/Vol] 758 10*3/uL High [facility] RBC (Bld) [#/Vol] 3.27 10*6/uL Low [facility] WBC (Bld) [#/Vol] 8.7 10*3/uL [facility] Erythrocyte distribution width (RBC) [Ratio] 18.8 % High 11.5-14.5 [facility] Comment on above: Performed By: #### 5 8410-2 ####JANETH Galo ([id number])[facility] ([facility])[address] [place] [address] Hematocrit (Bld) [Volume fraction] 26.6 % Low 36.0-46.0 [facility] Comment on above: Performed By: #### 5 8410-2 ####JANETH Galo ([id number])[facility] ([facility])[address] [place] [address] Hemoglobin (Bld) [Mass/Vol] 7.9 g/dL Low 12.0-16.0 [facility] Comment on above: Performed By: #### 5 8410-2 ####JANETH Galo ([id number])[facility] ([facility])[address] [place] [address] MCH (RBC) [Entitic mass] 24.2 pg Low 26.0-34.0 [facility] Comment on above: Performed By: #### 5 8410-2 ####JANETH Galo ([id number])[facility] ([facility])[address] [place] [address] MCHC (RBC) [Mass/Vol] 29.7 g/dL Low 32.0-36.0 [facility] Comment on above: Performed By: #### 5 8410-2 ####JANETH Galo ([id number])[facility] ([facility])[address] [place] [address] MCV (RBC) [Entitic vol] 81 fL Normal 80-100 [facility] Comment on above: Performed By: #### 5 8410-2 ####JANETH Galo ([id number])[facility] ([facility])[address] [place] [address] Nucleated RBC/100 WBC (Bld) [Ratio] 0.0 /100 WBCs Normal 0.0-0.0 [facility] Comment on above: Performed By: #### 5 8410-2 ####JANETH Galo ([id number])[facility] ([facility])[address] [place] [address] Platelets (Bld) [#/Vol] 758 x10*3/uL High 150-450 [facility] Comment on above: Performed By: #### 5 8410-2 ####JANETH Galo ([id number])[facility] ([facility])[address] [place] [address] RBC (Bld) [#/Vol] 3.27 x10*6/uL Low 4.00-5.20 [facility] Comment on above: Performed By: #### 5 8410-2 ####JANETH Galo ([id number])[facility] ([facility])[address] [place] [address] WBC (Bld) [#/Vol] 8.7 x10*3/uL Normal 4.4-11.3 [facility] Comment on above: Performed By: #### 5 8410-2 ####JANETH Galo ([id number])[facility] ([facility])[address] [place] [address] Bacteria identified Cx Nom ( Unsp spec)on 05-01-2024 Interpretation and review of laboratory results Abnormal [facility] Work Phone: Microscopic observation Gram stain Nom (Unsp spec) No polymorphonuclear leukocytes seen Abnormal [facility] Work Phone: Microscopic observation Gram stain Nom (Unsp spec) Positive Abnormal [facility] Work Phone: [facility] Work Phone: Bacteria identified Cx Nom ( Unsp spec)Ordered By: Radha Bird on 05-01-2024 Interpretation and review of laboratory results Abnormal [facility] Microscopic observation Gram stain Nom (Unsp spec) (2+) Few Polymorphonuclear leukocytes [facility] Microscopic observation Gram stain Nom (Unsp spec) No organisms seen [facility] Basic metabolic 2000 panelon 05-01-2024 Anion gap [Moles/Vol] 12 mmol/L 10 - 2 0 mmol/L [facility] Calcium [Mass/Vol] 8.9 mg/dL 8.6 - 10. 6 mg/dL [facility] Chloride [Moles/Vol] 101 mmol/L 98 - 10 7 mmol/L [facility] CO2 [Moles/Vol] 26 mmol/L 21 - 32 mmol/L [facility] Creatinine [Mass/Vol] 0.97 mg/dL 0.50 - 1.05 mg/dL [facility] GFR/1.73 sq M.predicted among non-blacks MDRD (S/P/Bld) [Vol rate/Area] 70 mL/min/{1.73_m2} - PINF [facility] Glucose [Mass/Vol] 95 mg/dL 74 - 99 mg/dL [facility] Interpretation and review of laboratory results Abnormal [facility] Potassium [Moles/Vol] 4.4 mmol/L 3.5 - 5.3 mmol/L [facility] Sodium [Moles/Vol] 135 mmol/L Low 136 - 145 mmol/L [facility] Urea nitrogen [Mass/Vol] 14 mg/dL 6 - 23 mg/dL [facility] Anion gap [Moles/Vol] 12 mmol/L Normal 10-20 [facility] Comment on above: Performed By: #### 2 0954-2 ####JANETH GRAFF L ([id number])[facility] ([facility])[address] [place] [address] Calcium [Mass/Vol] 8.9 mg/dL Normal 8.6-10.6 [facility] Comment on above: Performed By: #### 2 4321-2 ####JANETH RANGELER L ([id number])[facility] ([facility])[address] [place] [address] Chloride [Moles/Vol] 101 mmol/L Normal 98-107 [facility] Comment on above: Performed By: #### 2 4321-2 ####JANETH RANGELER L ([id number])[facility] ([facility])[address] [place] [address] CO2 [Moles/Vol] 26 mmol/L Normal 21-32 [facility] Comment on above: Performed By: #### 2 4321-2 ####JANETH GRAFF L ([id number])[facility] ([facility])[address] [place] [address] Creatinine [Mass/Vol] 0.97 mg/dL Normal 0.50-1.05 [facility] Comment on above: Performed By: #### 2 4321-2 ####JANETH GRAFF L ([id number])[facility] ([facility])[address] [place] [address] Glomerular filtration rate/1.73 sq M.predicted 70 mL/min/1.73m*2 Normal >60 [facility] Comment on above: Result Comment: Calc ulations of estimated GFR are performed using the 2020 CKD-EPI Study Refit equation without the race variable for the IDMS-Traceable creatinine methods.https://jasn.asnjournals.org/content/early/ N.0138293314 Performed By: #### 2 4321-2 ####JANETH MCDONALDTZER L ([id number])[facility] ([facility])[address] [place] [address] Glucose [Mass/Vol] 95 mg/dL Normal 74-99 [facility] Comment on above: Performed By: #### 2 4321-2 ####JANETH Galo ([id number])[facility] ([facility])[address] [place] [address] Potassium [Moles/Vol] 4.4 mmol/L Normal 3.5-5.3 [facility] Comment on above: Performed By: #### 2 4321-2 ####JANETH Galo ([id number])[facility] ([facility])[address] [place] [address] Sodium [Moles/Vol] 135 mmol/L Low 136-145 [facility] Comment on above: Performed By: #### 2 4321-2 ####JANETH Galo ([id number])[facility] ([facility])[address] [place] [address] Urea nitrogen [Mass/Vol] 14 mg/dL Normal 6-23 [facility] Comment on above: Performed By: #### 2 4321-2 ####JANETH Galo ([id number])[facility] ([facility])[address] [place] [address] CBC panel Auto (Bld)on 05-01 Erythrocyte distribution width (RBC) [Ratio] 18.6 % High 11.5 - 14.5 % [facility] Hematocrit (Bld) [Volume fraction] 27 % Low 36.0 - 46.0 % [facility] Hemoglobin (Bld) [Mass/Vol] 8 g/dL Low 12.0 - 16.0 g/dL [facility] Interpretation and review of laboratory results Abnormal [facility] [place] MCH (RBC) [Entitic mass] 23.5 pg Low 26.0 - 34.0 pg [facility] MCHC (RBC) [Mass/Vol] 29.6 g/dL Low 32.0 - 36.0 g/dL [facility] MCV (RBC) [Entitic vol] 79 fL Low 80 - 100 fL [facility] Nucleated RBC/100 WBC (Bld) [Ratio] 0.3 % High [facility] Platelets (Bld) [#/Vol] 738 10*3/uL High [facility] RBC (Bld) [#/Vol] 3.4 10*6/uL Low [facility] WBC (Bld) [#/Vol] 9.7 10*3/uL [facility] Erythrocyte distribution width (RBC) [Ratio] 18.6 % High 11.5-14.5 [facility] Comment on above: Performed By: #### 5 8410-2 ####JANETH Galo ([id number])[facility] ([facility])[id number] [place] [address] Hematocrit (Bld) [Volume fraction] 27.0 % Low 36.0-46.0 [facility] Comment on above: Performed By: #### 5 8410-2 ####JANETH Galo ([id number])[facility] ([facility])[address] [place] [address] Hemoglobin (Bld) [Mass/Vol] 8.0 g/dL Low 12.0-16.0 [facility] Comment on above: Performed By: #### 5 8410-2 ####JANETH Galo ([id number])[facility] ([facility])[address] [place] [address]395 MCH (RBC) [Entitic mass] 23.5 pg Low 26.0-34.0 [facility] Comment on above: Performed By: #### 5 8410-2 ####JANETH Galo ([id number])[facility] ([facility])[address] [place] [address] MCHC (RBC) [Mass/Vol] 29.6 g/dL Low 32.0-36.0 [facility] Comment on above: Performed By: #### 5 8410-2 ####JANETH Galo ([id number])[facility] ([facility])[address] [place] [address] MCV (RBC) [Entitic vol] 79 fL Low 80-100 [facility] Comment on above: Performed By: #### 5 8410-2 ####JANETH Galo ([id number])[facility])[address] [place] [address] Nucleated RBC/100 WBC (Bld) [Ratio] 0.3 /100 WBCs High 0.0-0.0 [facility] Comment on above: Performed By: #### 5 8410-2 ####JANETH Galo ([id number])[facility] ([facility])[address] [place] [address] Platelets (Bld) [#/Vol] 738 x10*3/uL High 150-450 [facility] Comment on above: Performed By: #### 5 8410-2 ####JANETH Galo ([id number])[facility])[address] [place] [address] RBC (Bld) [#/Vol] 3.40 x10*6/uL Low 4.00-5.20 [facility] Comment on above: Performed By: #### 5 8410-2 ####JANETH Galo ([id number])[facility])[address] [place] [address] WBC (Bld) [#/Vol] 9.7 x10*3/uL Normal 4.4-11.3 [facility] Comment on above: Performed By: #### 5 8410-2 ####JANETH Galo ([id number])[facility] ([facility])[address] [place] [address] Nicotine + Metabolites, Urin ita 05-01-2024 Anabasine (U) [Mass/Vol] <5 ng/mL [facility] Cotinine (U) [Mass/Vol] 74 ng/mL [facility] Nicotine (U) [Mass/Vol] <15 ng/mL [facility] Duumr-5-Bfxvautzcqsce ne (U) [Mass/Vol] 1686 ng/mL [facility] Tissue/Wound Culture/Smearon 05-01-2024 Bacteria identified Cx Nom (Unsp spec) Negative [facility] Work Phone: Bacteria identified Cx Nom (Unsp spec) (2+) Few Mixed Skin Microorganisms [facility] Work Phone: Tissue/Wound Culture/SmearOr dered By: Radha Bird on 05-01-2024 Bacteria identified Cx Nom (Unsp spec) (1+) Rare Alcaligenes faecalis Abnormal [facility] Bacteria identified Cx Nom (Unsp spec) Negative [facility] Bacteria identified Cx Nom ( Unsp spec)on 04-30-2024 Microscopic observation Gram stain Nom (Unsp spec) (2+) Few Polymorphonuclear leukocytes [facility] Work Phone: Microscopic observation Gram stain Nom (Unsp spec) No organisms seen [facility]: [facility] Work Phone: Interpretation and review of laboratory results Abnormal [facility] Work Phone: Microscopic observation Gram stain Nom (Unsp spec) No polymorphonuclear leukocytes seen Abnormal [facility] Work Phone: Microscopic observation Gram stain Nom (Unsp spec) Negative Abnormal [facility] Work Phone: [facility] Work Phone: Basic metabolic 2000 panelon 04-30-2024 Anion gap [Moles/Vol] 14 mmol/L 10 - 2 0 mmol/L [facility] Calcium [Mass/Vol] 8.8 mg/dL 8.6 - 10. 6 mg/dL [facility] Chloride [Moles/Vol] 101 mmol/L 98 - 10 7 mmol/L [facility] CO2 [Moles/Vol] 25 mmol/L 21 - 32 mmol/L [facility] Creatinine [Mass/Vol] 0.85 mg/dL 0.50 - 1.05 mg/dL [facility] GFR/1.73 sq M.predicted among non-blacks MDRD (S/P/Bld) [Vol rate/Area] 83 mL/min/{1.73_m2} - PINF [facility] Glucose [Mass/Vol] 86 mg/dL 74 - 99 mg/dL [facility] Interpretation and review of laboratory results Abnormal [facility] Potassium [Moles/Vol] 4.5 mmol/L 3.5 - 5.3 mmol/L [facility] Sodium [Moles/Vol] 135 mmol/L Low 136 - 145 mmol/L [facility] Urea nitrogen [Mass/Vol] 13 mg/dL 6 - 23 mg/dL [facility] Anion gap [Moles/Vol] 14 mmol/L Normal 10-20 [facility] Comment on above: Performed By: #### 2 4321-2 ####JANETH Galo ([id number])[facility])[address] [place] [address] Calcium [Mass/Vol] 8.8 mg/dL Normal 8.6-10.6 [facility] Comment on above: Performed By: #### 2 4321-2 ####JANETH GRAFF L ([id number])[facility])[address] [place] [address] Chloride [Moles/Vol] 101 mmol/L Normal 98-107 [facility] Comment on above: Performed By: #### 2 4321-2 ####JANETH GRAFF L ([id number])[facility])[address] [place] [address] CO2 [Moles/Vol] 25 mmol/L Normal 21-32 [facility] Comment on above: Performed By: #### 2 4321-2 ####JANETH GRAFF L ([id number])[facility])[address] [place] [address] Creatinine [Mass/Vol] 0.85 mg/dL Normal 0.50-1.05 [facility] Comment on above: Performed By: #### 2 4321-2 ####JANETH GRAFF L ([id number])[facility])[address] [place] [address] Glomerular filtration rate/1.73 sq M.predicted 83 mL/min/1.73m*2 Normal >60 [facility] Comment on above: Result Comment: Calc ulations of estimated GFR are performed using the 2020 CKD-EPI Study Refit equation without the race variable for the IDMS-Traceable creatinine methods.https://jasn.asnjournals.org/content/early/ N.9655017099 Performed By: #### 2 4321-2 ####JANETH GRAFF L ([id number])[facility])[address] [place] [address] Glucose [Mass/Vol] 86 mg/dL Normal 74-99 [facility] Comment on above: Performed By: #### 2 4321-2 ####JANETH CONNORMOTZER L ([id number])[facility])[address] [place] [address] Potassium [Moles/Vol] 4.5 mmol/L Normal 3.5-5.3 [facility] Comment on above: Performed By: #### 2 4321-2 ####JANETH CONNORMOTZER L ([id number])[facility])[address] [place] [address] Sodium [Moles/Vol] 135 mmol/L Low 136-145 [facility] Comment on above: Performed By: #### 2 4321-2 ####JANETH CONNORMOTZER L ([id number])[facility])[address] [place] [address] Urea nitrogen [Mass/Vol] 13 mg/dL Normal 6-23 [facility] Comment on above: Performed By: #### 2 4321-2 ####JANETH CONNORMOTZER L ([id number])[facility])[address] [place] [address] CBC panel Auto (Bld)on 04-30 Erythrocyte distribution width (RBC) [Ratio] 18.6 % High 11.5 - 14.5 % [facility] Hematocrit (Bld) [Volume fraction] 31.3 % Low 36.0 - 46.0 % [facility] Hemoglobin (Bld) [Mass/Vol] 8.7 g/dL Low 12.0 - 16.0 g/dL [facility] Interpretation and review of laboratory results Abnormal [facility] MCH (RBC) [Entitic mass] 23.9 pg Low 26.0 - 34.0 pg [facility] MCHC (RBC) [Mass/Vol] 27.8 g/dL Low 32.0 - 36.0 g/dL [facility] MCV (RBC) [Entitic vol] 86 fL 80 - 100 fL [facility] Nucleated RBC/100 WBC (Bld) [Ratio] 0.3 % High [facility] Platelets (Bld) [#/Vol] 754 10*3/uL High [facility] RBC (Bld) [#/Vol] 3.64 10*6/uL [facility] WBC (Bld) [#/Vol] 7.8 10*3/uL [facility] Erythrocyte distribution width (RBC) [Ratio] 18.6 % High 11.5-14.5 [facility] Comment on above: Performed By: #### 5 8410-2 ####JANETH Galo ([id number])[facility] ([facility])[address] [place] [address] Hematocrit (Bld) [Volume fraction] 31.3 % Low 36.0-46.0 [facility] Comment on above: Performed By: #### 5 8410-2 ####JANETH Galo ([id number])[facility])[address] [place] [address] Hemoglobin (Bld) [Mass/Vol] 8.7 g/dL Low 12.0-16.0 [facility] Comment on above: Performed By: #### 5 8410-2 ####JANETH Galo ([id number])[facility])[address] [place] [address] MCH (RBC) [Entitic mass] 23.9 pg Low 26.0-34.0 [facility] Comment on above: Performed By: #### 5 8410-2 ####JANETH Galo ([id number])[facility])[address] [place] [address] MCHC (RBC) [Mass/Vol] 27.8 g/dL Low 32.0-36.0 [facility] Comment on above: Performed By: #### 5 8410-2 ####JANETH Galo ([id number])[facility])[address] [place] [address] MCV (RBC) [Entitic vol] 86 fL Normal 80-100 [facility] Comment on above: Performed By: #### 5 8410-2 ####JANETH Galo ([id number])[facility])[address] [place] [address] Nucleated RBC/100 WBC (Bld) [Ratio] 0.3 /100 WBCs High 0.0-0.0 [facility] Comment on above: Performed By: #### 5 8410-2 ####JANETH Galo ([id number])[facility])[address] [place] [address] Platelets (Bld) [#/Vol] 754 x10*3/uL High 150-450 [facility] Comment on above: Performed By: #### 5 8410-2 ####JANETH Galo ([id number])[facility] ([facility])[address] [place] [address] RBC (Bld) [#/Vol] 3.64 x10*6/uL Low 4.00-5.20 [facility] Comment on above: Performed By: #### 5 8410-2 ####JANETH Galo ([id number])[facility])[address] [place] [address] WBC (Bld) [#/Vol] 7.8 x10*3/uL Normal 4.4-11.3 [facility] Comment on above: Performed By: #### 5 8410-2 ####JANETH Galo ([id number])[facility])[address] [place] [address] Tissue/Wound Culture/Smearon 04-30-2024 Bacteria identified Cx Nom (Unsp spec) (1+) Rare Mixed Skin Microorganisms [facility] Work Phone: Bacteria identified Cx Nom (Unsp spec) (4+) Abundant Mixed Gram-Positive and Gram-Negative Bacteria [facility] Work Phone: Bacteria identified Cx Nom ( Unsp spec)Ordered By: Kristi Rahman on 04-29-2024 Interpretation and review of laboratory results Abnormal [facility] Microscopic observation Gram stain Nom (Unsp spec) (3+) Moderate Polymorphonuclear leukocytes [facility] Microscopic observation Gram stain Nom (Unsp spec) No organisms seen [facility] Basic metabolic 2000 panelon 04-29-2024 Anion gap [Moles/Vol] 11 mmol/L 10 - 2 0 mmol/L [facility] Calcium [Mass/Vol] 8.7 mg/dL 8.6 - 10. 6 mg/dL [facility] Chloride [Moles/Vol] 101 mmol/L 98 - 10 7 mmol/L [facility] CO2 [Moles/Vol] 26 mmol/L 21 - 32 mmol/L [facility] Creatinine [Mass/Vol] 0.8 mg/dL 0.50 - 1.05 mg/dL [facility] GFR/1.73 sq M.predicted among non-blacks MDRD (S/P/Bld) [Vol rate/Area] 89 mL/min/{1.73_m2} - PINF [facility] Glucose [Mass/Vol] 104 mg/dL High 74 - 99 mg/dL [facility] Interpretation and review of laboratory results Abnormal [facility] Potassium [Moles/Vol] 4.3 mmol/L 3.5 - 5.3 mmol/L [facility] Sodium [Moles/Vol] 134 mmol/L Low 136 - 145 mmol/L [facility] Urea nitrogen [Mass/Vol] 11 mg/dL 6 - 23 mg/dL [facility] Anion gap [Moles/Vol] 11 mmol/L Normal 10-20 [facility] Comment on above: Performed By: #### 2 4321-2 ####JANETH GRAFF L ([id number])[facility])[address] [place] [address] Calcium [Mass/Vol] 8.7 mg/dL Normal 8.6-10.6 [facility] Comment on above: Performed By: #### 2 4321-2 ####JANETH GRAFF L ([id number])[facility])[address] [place] [address] Chloride [Moles/Vol] 101 mmol/L Normal 98-107 [facility] Comment on above: Performed By: #### 2 4321-2 ####JANETH GRAFF L ([id number])[facility])[address] [place] [address] CO2 [Moles/Vol] 26 mmol/L Normal 21-32 [facility] Comment on above: Performed By: #### 2 4321-2 ####JANETH MCDONALDTZER L ([id number])[facility] ([facility])[address] [place] [address] Creatinine [Mass/Vol] 0.80 mg/dL Normal 0.50-1.05 [facility] Comment on above: Performed By: #### 2 4321-2 ####JANETH GRAFF L ([id number])[facility])[address] [place] [address] Glomerular filtration rate/1.73 sq M.predicted 89 mL/min/1.73m*2 Normal >60 [facility] Comment on above: Result Comment: Calc ulations of estimated GFR are performed using the 2020 CKD-EPI Study Refit equation without the race variable for the IDMS-Traceable creatinine methods.https://jasn.asnjournals.org/content/early// N.5392956583 Performed By: #### 2 4321-2 ####JANETH Galo ([id number])[facility] ([facility])[address] [place] [address] Glucose [Mass/Vol] 104 mg/dL High 74-99 [facility] Comment on above: Performed By: #### 2 4321-2 ####JANETH Galo ([id number])[facility])[address] [place] [address] Potassium [Moles/Vol] 4.3 mmol/L Normal 3.5-5.3 [facility] Comment on above: Performed By: #### 2 4321-2 ####JANETH Galo ([id number])[facility])[address] [place] [address] Sodium [Moles/Vol] 134 mmol/L Low 136-145 [facility] Comment on above: Performed By: #### 2 4321-2 ####JANETH Galo ([id number])[facility])[address] [place] [address] Urea nitrogen [Mass/Vol] 11 mg/dL Normal 6-23 [facility] Comment on above: Performed By: #### 2 4321-2 ####JANETH Galo ([id number])[facility])[address] [place] [address] CBC panel Auto (Bld)on 04-29 Erythrocyte distribution width (RBC) [Ratio] 18.2 % High 11.5 - 14.5 % [facility] Hematocrit (Bld) [Volume fraction] 27.3 % Low 36.0 - 46.0 % [facility] Hemoglobin (Bld) [Mass/Vol] 8.1 g/dL Low 12.0 - 16.0 g/dL [facility] Interpretation and review of laboratory results Abnormal [facility] MCH (RBC) [Entitic mass] 24.5 pg Low 26.0 - 34.0 pg [facility] MCHC (RBC) [Mass/Vol] 29.7 g/dL Low 32.0 - 36.0 g/dL [facility] MCV (RBC) [Entitic vol] 83 fL 80 - 100 fL [facility] Nucleated RBC/100 WBC (Bld) [Ratio] 0 % [facility] Platelets (Bld) [#/Vol] 759 10*3/uL High [facility] RBC (Bld) [#/Vol] 3.3 10*6/uL Low [facility] WBC (Bld) [#/Vol] 9.6 10*3/uL [facility] Erythrocyte distribution width (RBC) [Ratio] 18.2 % High 11.5-14.5 [facility] Comment on above: Performed By: #### 5 8410-2 ####JANETH Galo ([id number])[facility])[address] [place] [address] Hematocrit (Bld) [Volume fraction] 27.3 % Low 36.0-46.0 [facility] Comment on above: Performed By: #### 5 8410-2 ####JANETH Galo (24525)[facility])[address] [place] [address] Hemoglobin (Bld) [Mass/Vol] 8.1 g/dL Low 12.0-16.0 [facility] Comment on above: Performed By: #### 5 8410-2 ####JANETH Galo ([id number])[facility])[address] [place] [address] MCH (RBC) [Entitic mass] 24.5 pg Low 26.0-34.0 [facility] Comment on above: Performed By: #### 5 8410-2 ####JANETH Galo ([id number])[facility])[address] [place] [address] MCHC (RBC) [Mass/Vol] 29.7 g/dL Low 32.0-36.0 [facility] Comment on above: Performed By: #### 5 8410-2 ####JANETH Galo ([id number])[facility])[address] [place] [address] MCV (RBC) [Entitic vol] 83 fL Normal 80-100 [facility] Comment on above: Performed By: #### 5 8410-2 ####JANETH Galo ([id number])[facility])[address] [place] [address] Nucleated RBC/100 WBC (Bld) [Ratio] 0.0 /100 WBCs Normal 0.0-0.0 [facility] Comment on above: Performed By: #### 5 8410-2 ####JANETH aGlo ([id number])[facility] ([facility])[address] [place] [address] Platelets (Bld) [#/Vol] 759 x10*3/uL High 150-450 [facility] Comment on above: Performed By: #### 5 8410-2 ####JANETH Galo ([id number])[facility])[address] [place] [address] RBC (Bld) [#/Vol] 3.30 x10*6/uL Low 4.00-5.20 [facility] Comment on above: Performed By: #### 5 8410-2 ####JANETH Galo ([id number])[facility])[address] [place] [address] WBC (Bld) [#/Vol] 9.6 x10*3/uL Normal 4.4-11.3 [facility] Comment on above: Performed By: #### 5 8410-2 ####JANETH Galo ([id number])[facility])[address] [place] [address] Ferritinon 04-29-2024 Ferritin [Mass/Vol] 34 ng/mL 8 - 150 ng/mL [facility] Ferritin [Mass/Vol] 34 ng/mL Normal 8-150 [facility] Comment on above: Performed By: #### 2 276-4 ####JANETH Galo ([id number])[facility] ([facility])[address] [place] [address] Ferritin [Mass/Vol]on 2024 Interpretation and review of laboratory results Normal [facility] Iron and Iron binding capaci ty panelon 04-29-2024 Interpretation and review of laboratory results Abnormal [facility] Iron [Mass/Vol] 15 ug/dL Low 35 - 150 ug/dL [facility] Iron binding capacity [Mass/Vol] 324 ug/dL 240 - 445 ug/dL [facility] Iron binding capacity.unsaturated [Mass/Vol] 309 ug/dL 110 - 370 ug/dL [facility] Iron saturation [Mass fraction] 5 % Low 25 - 45 % [facility] Iron [Mass/Vol] 15 ug/dL Low 35-150 [facility] Comment on above: Performed By: #### 5 0190-8 ####JANETH Galo ([id number])[facility])[address] [place] [address] Iron binding capacity [Mass/Vol] 324 ug/dL Normal 240-445 [facility] Comment on above: Performed By: #### 5 0190-8 ####JANETH GRAFF L ([id number])[facility])[address] [place] [address] Iron binding capacity.unsaturated [Mass/Vol] 309 ug/dL Normal 110-370 [facility] Comment on above: Performed By: #### 5 0190-8 ####JANETH CONNORMOTZER L ([id number])[facility] ([facility])[address] [place] [address] Iron saturation [Mass fraction] 5 % Low 25-45 [facility] Comment on above: Performed By: #### 5 0190-8 ####JANETH CONNORMOTZER L (53530)[facility] ([facility])[address] [place] [address] No Panel Informationon 04-29 [facility] Slide RequestOrdered By: Karishma Welch on 04-29-2024 [facility] Tissue/Wound Culture/SmearOr dered By: Kristi Rahman on 04-29-2024 Bacteria identified Cx Nom (Unsp spec) (1+) Rare Providencia rettgeri Abnormal [facility] Bacteria identified Cx Nom (Unsp spec) (1+) Rare Alcaligenes faecalis Abnormal [facility] Bacteria identified Cx Nom (Unsp spec) Negative [facility] Wound Cultureon 04-29-2024 WC Alcaligenes faecalis ssp faeca Amount Growth 2+ Escherichia coli Escherichia coli ALAN Amount Growth 1+ * This is an amended result. * A prior result that was reported as final has been changed. 04/29/24 0914 by RAYMOND Previously reported as: ACCIDENTLY FINALIZED Alcaligenes faecalis ssp faeca: REACTION levoFLOXacin Islt CORNEL 4 I Meropenem Islt CORNEL <=0.25 S Pip+Tazo Islt CORNEL <=4 TMP SMX Islt CORNEL 160 R Alcaligenes faecalis ssp faeca: REACTION Aztreonam Islt CORNEL >=64 R Doxycycline Islt CORNEL 1 S Imipenem Islt CORNEL 1 Escherichia coli: REACTION Ampicillin Islt CORNEL >=32 R Ampicillin+Sulbac Islt CORNEL 16 I Cefepime Islt CORNEL <=0.12 cefTRIAXone Islt CORNEL <=0.25 S Ciprofloxacin Islt CORNEL >=4 R B-Lactamase Extended Susc Islt NEG Gentamicin Islt CORNEL >=16 R levoFLOXacin Islt CORNEL >=8 R Meropenem Islt CORNEL <=0.25 S Pip+Tazo Islt CORNEL <=4 S TMP SMX Islt CORNEL >=320 R Staphylococcus haemolyticus: REACTION cefOXitin Susc Islt POS Doxycycline Islt CORNEL 8 I Clindamycin Islt CORNEL >=4 Clindamycin.induced Susc Islt NEG Erythromycin Islt CORNEL >=8 R Gentamicin Islt CORNEL >=16 R Linezolid Islt CORNEL 2 S Oxacillin Susc Islt >=4 R Tetracycline Islt CORNEL >=16 R TMP SMX Islt CORNEL >=320 R Vancomycin Islt CORNEL 1 S Normal [facility] Comment on above: Performed By: #### M 100.2000, M100.3000 #### [facility] [address] [place], [address] Bacteria identifiedon 2024 Bacteria identified Cx Nom (Unsp spec) Normal [facility] Comment on above: Performed By: #### 6 463-4 ####JANETH Galo ([id number])[facility] ([facility])[address] [place] [address] Bacteria identified Cx Nom (Unsp spec) Abnormal [facility] Comment on above: Performed By: #### 6 463-4 ####JANETH Galo (23731)[facility] ([facility])[address] [place] [address] Bacteria identified Cx Nom (Unsp spec) Abnormal [facility] Comment on above: Performed By: #### 6 463-4 ####JANETH Galo ([id number])[facility] ([facility])[address] [place] [address] Bacteria identified Cx Nom (Unsp spec) Abnormal [facility] Comment on above: Performed By: #### 6 463-4 ####JANETH Galo ([id number])[facility] ([facility])[address] [place] [address] Basic metabolic 2000 panelon 04-28-2024 Anion gap [Moles/Vol] 13 mmol/L 10 - 2 0 mmol/L [facility] Calcium [Mass/Vol] 8.8 mg/dL 8.6 - 10. 6 mg/dL [facility] Chloride [Moles/Vol] 103 mmol/L 98 - 10 7 mmol/L [facility] CO2 [Moles/Vol] 23 mmol/L 21 - 32 mmol/L [facility] Creatinine [Mass/Vol] 1.06 mg/dL High 0.50 - 1.05 mg/dL [facility] GFR/1.73 sq M.predicted among non-blacks MDRD (S/P/Bld) [Vol rate/Area] 63 mL/min/{1.73_m2} - PINF [facility] Glucose [Mass/Vol] 95 mg/dL 74 - 99 mg/dL [facility] Interpretation and review of laboratory results Abnormal [facility] Potassium [Moles/Vol] 4.5 mmol/L 3.5 - 5.3 mmol/L [facility] Sodium [Moles/Vol] 134 mmol/L Low 136 - 145 mmol/L [facility] Urea nitrogen [Mass/Vol] 9 mg/dL 6 - 23 mg/dL [facility] Anion gap [Moles/Vol] 13 mmol/L Normal 10-20 [facility] Comment on above: Performed By: #### 2 4321-2 ####JANETH Galo ([id number])[facility])[address] [place] [address] Calcium [Mass/Vol] 8.8 mg/dL Normal 8.6-10.6 [facility] Comment on above: Performed By: #### 2 4321-2 ####JANETH GRAFF L ([id number])[facility] ([facility])[address] [place] [address] Chloride [Moles/Vol] 103 mmol/L Normal 98-107 [facility] Comment on above: Performed By: #### 2 4321-2 ####JANETH GRAFF L ([id number])[facility] ([facility])[address] [place] [address] CO2 [Moles/Vol] 23 mmol/L Normal 21-32 [facility] Comment on above: Performed By: #### 2 4321-2 ####JANETH GRAFF L ([id number])[facility] ([facility])[address] [place] [address] Creatinine [Mass/Vol] 1.06 mg/dL High 0.50-1.05 [facility] Comment on above: Performed By: #### 2 4321-2 ####JANETH RANGELER L ([id number])[facility] ([facility])[address] [place] [address] Glomerular filtration rate/1.73 sq M.predicted 63 mL/min/1.73m*2 Normal >60 [facility] Comment on above: Result Comment: Calc ulations of estimated GFR are performed using the 2020 CKD-EPI Study Refit equation without the race variable for the IDMS-Traceable creatinine methods.https://jasn.asnjournals.org/content/early/ N.5320490288 Performed By: #### 2 4321-2 ####JANETH GRAFF L ([id number])[facility] ([facility])[address] [place] [address] Glucose [Mass/Vol] 95 mg/dL Normal 74-99 [facility] Comment on above: Performed By: #### 2 4321-2 ####JANETH CONNORMOTZER L ([id number])[facility] ([facility])[address] [place] [address] Potassium [Moles/Vol] 4.5 mmol/L Normal 3.5-5.3 [facility] Comment on above: Performed By: #### 2 4321-2 ####JANETH CONNORMOTZER L ([id number])[facility] ([facility])[address] [place] [address] Sodium [Moles/Vol] 134 mmol/L Low 136-145 [facility] Comment on above: Performed By: #### 2 4321-2 ####JANETH CONNORMOTZER L ([id number])[facility] ([facility])[address] [place] [address] Urea nitrogen [Mass/Vol] 9 mg/dL Normal 6-23 [facility] Comment on above: Performed By: #### 2 4321-2 ####JANETH CONNORMOTZER L ([id number])[facility] ([facility])[address] [place] [address] Blood type and Indirect anti body screen panel (Bld)on 04-28-2024 ABO group Nom (Bld) A [facility] Blood group antibody screen Ql Negative [facility] D Ag Ql (Bld) Positive [facility] ABO group Nom (Bld) A Normal [facility] Comment on above: Performed By: #### 3 4532-2 ####JANETH Galo ([id number])[facility] ([facility])[address] [place] [place] [address] Blood group antibody screen Ql Negative Normal [facility] Comment on above: Performed By: #### 3 4532-2 ####JANETH Galo ([id number])[facility] ([facility])[address] [place] [address] D Ag Ql (Bld) Positive Normal [facility] Comment on above: Performed By: #### 3 4532-2 ####JANETH Galo ([id number])[facility] ([facility])[address] [place] [address] CBC panel Auto (Bld)on 04-28 Erythrocyte distribution width (RBC) [Ratio] 18.5 % High 11.5 - 14.5 % [facility] Hematocrit (Bld) [Volume fraction] 31.8 % Low 36.0 - 46.0 % [facility] Hemoglobin (Bld) [Mass/Vol] 9 g/dL Low 12.0 - 16.0 g/dL [facility] Interpretation and review of laboratory results Abnormal [facility] MCH (RBC) [Entitic mass] 24.4 pg Low 26.0 - 34.0 pg [facility] MCHC (RBC) [Mass/Vol] 28.3 g/dL Low 32.0 - 36.0 g/dL [facility] MCV (RBC) [Entitic vol] 86 fL 80 - 100 fL [facility] Nucleated RBC/100 WBC (Bld) [Ratio] 0.3 % High [facility] Platelets (Bld) [#/Vol] 743 10*3/uL [facility] RBC (Bld) [#/Vol] 3.69 10*6/uL [facility] WBC (Bld) [#/Vol] 11.4 10*3/uL [facility] Erythrocyte distribution width (RBC) [Ratio] 18.5 % High 11.5-14.5 [facility] Comment on above: Performed By: #### 5 8410-2 ####JANETH Galo ([id number])[facility] ([facility])[address] [place] [address] Hematocrit (Bld) [Volume fraction] 31.8 % Low 36.0-46.0 [facility] Comment on above: Performed By: #### 5 8410-2 ####JANETH Galo ([id number])[facility] ([facility])[address] [place] [address] Hemoglobin (Bld) [Mass/Vol] 9.0 g/dL Low 12.0-16.0 [facility] Comment on above: Performed By: #### 5 8410-2 ####JANETH Galo ([id number])[facility] ([facility])[address] [place] [address] MCH (RBC) [Entitic mass] 24.4 pg Low 26.0-34.0 [facility] Comment on above: Performed By: #### 5 8410-2 ####JANETH Galo ([id number])[facility] ([facility])[address] [place] [address] MCHC (RBC) [Mass/Vol] 28.3 g/dL Low 32.0-36.0 [facility] Comment on above: Performed By: #### 5 8410-2 ####JANETH Galo ([id number])[facility] ([facility])[address] [place] [address] MCV (RBC) [Entitic vol] 86 fL Normal 80-100 [facility] Comment on above: Performed By: #### 5 8410-2 ####JANETH Galo ([id number])[facility] ([facility])[address] [place] [address] Nucleated RBC/100 WBC (Bld) [Ratio] 0.3 /100 WBCs High 0.0-0.0 [facility] Comment on above: Performed By: #### 5 8410-2 ####JANETH Galo ([id number])[facility] ([facility])[address] [place] [address] Platelets (Bld) [#/Vol] 743 x10*3/uL High 150-450 [facility] Comment on above: Performed By: #### 5 8410-2 ####JANETH Galo ([id number])[facility] ([facility])[address] [place] [address] RBC (Bld) [#/Vol] 3.69 x10*6/uL Low 4.00-5.20 [facility] Comment on above: Performed By: #### 5 8410-2 ####JANETH Galo ([id number])[facility] ([facility])[address] [place] [address] WBC (Bld) [#/Vol] 11.4 x10*3/uL High 4.4-11.3 [facility] Comment on above: Performed By: #### 5 8410-2 ####JANETH Galo ([id number])[facility] ([facility])[address] [place] [address] Fungus identifiedon 04-29-19 25 Fungus identified Cx Nom (Unsp spec) [facility] Comment on above: Performed By: #### 5 80-1 ####JANETH Galo ([id number])[facility] ([facility])[address] [place] [address] Fungus identified Cx Nom (Unsp spec) [facility] Comment on above: Performed By: #### 5 80-1 ####JANETH Galo ([id number])[facility] ([facility])[address] [place] [address] Fungus identified Cx Nom (Unsp spec) Abnormal [facility] Comment on above: Performed By: #### 5 80-1 ####JANETH Galo ([id number])[facility] ([facility])[address] [place] [address] Fungus identified Cx Nom (Unsp spec) [facility] Comment on above: Performed By: #### 5 80-1 ####JANETH Galo ([id number])[facility] ([facility])[address] [place] [address] NICOTINE + METABOLITES, URIN Ita 04-28-2024 Anabasine (U) [Mass/Vol] <5 Normal [facility] Comment on above: Performed By: #### N ICMU ####[facility] ([facility]) ([id number])500 [place] [address] Cotinine (U) [Mass/Vol] 32 ng/mL [facility] Comment on above: Performed By: #### N ICMU ####[facility] ([facility]) ([id number])500 [place] [address] Nicotine (U) [Mass/Vol] <15 [facility] Comment on above: Result Comment: INTE RPRETIVE INFORMATION: Nicotine and Metabolites, Urine, QuantitativeMethodology: Quantitative Liquid Chromatography-Tandem MassSpectrometryPositive cutoff:Nicotine 15 ng/mLCotinine 15 ng/iH8-HZ-Sbsgaeit 50 ng/mLAnabasine 5 ng/mLFor medical purposes only; not valid for forensic use.This test is designed to evaluate recent use ofnicotine-containing products. Passive and active exposure cannotbe discriminated definitively, although a cutoff of 100 ng/mLcotinine is frequently used for surgery qualification purposes.For smoking cessation programs or compliance testing, the absenceof expected drug(s) and/or drug metabolite(s) may indicatenon-compliance, inappropriate timing of specimen collectionrelative to drug administration, poor drug absorption,diluted/adulterated urine, or limitations of testing. Theconcentration value must be greater than or equal to the cutoff sage reported as positive. Anabasine is included as a biomarker oftobacco use, versus nicotine replacement. Interpretive questionsshould be directed to the laboratory.This test was developed and its performance characteristicsdetermined by [employer]. It has not been cleared orapproved by the US Food and Drug Administration. This test wasperformed in a CLIA certified laboratory and is intended forclinical purposes.Performed By: [employer] [facility] [place], [place] [address]Cmmoomekpp Director: Jasper Larry MD, PhDCLIA Number: [id number] Performed By: #### N ICMU ####[facility] ([facility]) ([id number])[address] [place] [address] Mblkh-1-Nriulenxcijjc ne (U) [Mass/Vol] 1178 ng/mL Normal [facility] Comment on above: Performed By: #### N ICMU ####[facility] ([facility]) ([id number])[address] [place] [address] Basic metabolic 2000 panelon 04-27-2024 Anion gap [Moles/Vol] 11 mmol/L 10 - 2 0 mmol/L [facility] Calcium [Mass/Vol] 8.5 mg/dL Low 8.6 - 10. 6 mg/dL [facility] Chloride [Moles/Vol] 106 mmol/L 98 - 10 7 mmol/L [facility] CO2 [Moles/Vol] 26 mmol/L 21 - 32 mmol/L [facility] Creatinine [Mass/Vol] 0.73 mg/dL 0.50 - 1.05 mg/dL [facility] eGFR - PINF [facility] Glucose [Mass/Vol] 82 mg/dL 74 - 99 mg/dL [facility] Potassium [Moles/Vol] 4.1 mmol/L 3.5 - 5.3 mmol/L [facility] Sodium [Moles/Vol] 139 mmol/L 136 - 145 mmol/L [facility] Urea nitrogen [Mass/Vol] 8 mg/dL 6 - 23 mg/dL [facility] Anion gap [Moles/Vol] 11 mmol/L Normal 10-20 [facility] Comment on above: Performed By: #### 2 4321-2 ####JANETH Galo ([id number])[facility] ([facility])[address] [place] [address] Calcium [Mass/Vol] 8.5 mg/dL Low 8.6-10.6 [facility] Comment on above: Performed By: #### 2 4321-2 ####JANTEH GRAFF L (91453)[facility] ([facility])[address] [place] [address] Chloride [Moles/Vol] 106 mmol/L Normal 98-107 [facility] Comment on above: Performed By: #### 2 4321-2 ####JANETH GRAFF L (48532)[facility] ([facility])[address] [place] [address] CO2 [Moles/Vol] 26 mmol/L Normal 21-32 [facility] Comment on above: Performed By: #### 2 4321-2 ####JANETH Galo ([id number])[facility] ([facility])[address] [place] [address] Creatinine [Mass/Vol] 0.73 mg/dL Normal 0.50-1.05 [facility] Comment on above: Performed By: #### 2 4321-2 ####JANETH Galo (00139)[facility] ([facility])[address] [place] [address] GFR/1.73 sq M.predicted MDRD (S/P/Bld) [Vol rate/Area] mL/min/{1.73_m2} Normal >60 [facility] Comment on above: Result Comment: Calc ulations of estimated GFR are performed using the 2020 CKD-EPI Study Refit equation without the race variable for the IDMS-Traceable creatinine methods.https://jasn.asnjournals.org/content/early/ N.7850962242 Performed By: #### 2 4321-2 ####JANETH Galo ([id number])[facility] ([facility])[address] [place] [address] Glucose [Mass/Vol] 82 mg/dL Normal 74-99 [facility] Comment on above: Performed By: #### 2 4321-2 ####JANETH Galo ([id number])[facility] ([facility])[address] [place] [address] Potassium [Moles/Vol] 4.1 mmol/L Normal 3.5-5.3 [facility] Comment on above: Performed By: #### 2 4321-2 ####JANETH Galo (22541)[facility] ([facility])[address] [place] [address] Sodium [Moles/Vol] 139 mmol/L Normal 136-145 [facility] Comment on above: Performed By: #### 2 4321-2 ####JANETH Galo (83910)[facility] ([facility])[address] [place] [address] Urea nitrogen [Mass/Vol] 8 mg/dL Normal 6-23 [facility] Comment on above: Performed By: #### 2 4321-2 ####JANETH GRAFF L (89614)[facility] ([facility])[address] [place] [address] CBC panel Auto (Bld)on 04-27 Erythrocyte distribution width (RBC) [Ratio] 18 % High 11.5 - 14.5 % [facility] Hematocrit (Bld) [Volume fraction] 31.4 % Low 36.0 - 46.0 % [facility] Hemoglobin (Bld) [Mass/Vol] 8.7 g/dL Low 12.0 - 16.0 g/dL [facility] Interpretation and review of laboratory results Abnormal [facility] MCH (RBC) [Entitic mass] 24.1 pg Low 26.0 - 34.0 pg [facility] MCHC (RBC) [Mass/Vol] 27.7 g/dL Low 32.0 - 36.0 g/dL [facility] MCV (RBC) [Entitic vol] 87 fL 80 - 100 fL [facility] Nucleated RBC/100 WBC (Bld) [Ratio] 0.2 % High [facility] Platelets (Bld) [#/Vol] 745 10*3/uL High [facility] RBC (Bld) [#/Vol] 3.61 10*6/uL Low [facility] WBC (Bld) [#/Vol] 12.1 10*3/uL High [facility] Erythrocyte distribution width (RBC) [Ratio] 18.0 % High 11.5-14.5 [facility] Comment on above: Performed By: #### 5 8410-2 ####JANETH Galo ([id number])[facility] ([facility])[address] [place] [address] Hematocrit (Bld) [Volume fraction] 31.4 % Low 36.0-46.0 [facility] Comment on above: Performed By: #### 5 8410-2 ####JANETH Galo (70009)[facility] ([facility])[address] [place] [address] Hemoglobin (Bld) [Mass/Vol] 8.7 g/dL Low 12.0-16.0 [facility] Comment on above: Performed By: #### 5 8410-2 ####JANETH Galo (60626)[facility] ([facility])[address] [place] [address] MCH (RBC) [Entitic mass] 24.1 pg Low 26.0-34.0 [facility] Comment on above: Performed By: #### 5 8410-2 ####JANETH Galo (09053)[facility] ([facility])[address] [place] [address] MCHC (RBC) [Mass/Vol] 27.7 g/dL Low 32.0-36.0 [facility] Comment on above: Performed By: #### 5 8410-2 ####JANETH Galo (85899)[facility] ([facility])[address] [place] [address] MCV (RBC) [Entitic vol] 87 fL Normal 80-100 [facility] Comment on above: Performed By: #### 5 8410-2 ####JANETH Galo (49195)[facility] ([facility])[address] [place] [address] Nucleated RBC/100 WBC (Bld) [Ratio] 0.2 /100 WBCs High 0.0-0.0 [facility] Comment on above: Performed By: #### 5 8410-2 ####JANETH Galo (23463)[facility] ([facility])[address] [place] [address] Platelets (Bld) [#/Vol] 745 x10*3/uL High 150-450 [facility] Comment on above: Performed By: #### 5 8410-2 ####JANETH Galo ([id number])[facility] ([facility])[address] [place] [address] RBC (Bld) [#/Vol] 3.61 x10*6/uL Low 4.00-5.20 [facility] Comment on above: Performed By: #### 5 8410-2 ####JANETH Galo ([id number])[facility] ([facility])[address] [place] [address] WBC (Bld) [#/Vol] 12.1 x10*3/uL High 4.4-11.3 [facility] Comment on above: Performed By: #### 5 8410-2 ####JANETH Galo ([id number])[facility] ([facility])[address] [place] [address] CT Lower leg - right W contr ast Fritz 04-27-2024 [facility] MMODAL [facility] MM[facility]AL [facility] Work Phone: CT Lower leg - right W contr ast IVOrdered By: Jordan Calvin on 04-27-2024 [facility] Work Phone: Magnesiumon 04-27-2024 Magnesium [Mass/Vol] 2.36 mg/dL 1.60 - 2.40 mg/dL [facility] Magnesium [Mass/Vol] 2.36 mg/dL Normal 1.60-2.40 [facility] Comment on above: Performed By: #### 1 9123-9 ####JANETH Galo (44063)[facility] ([facility])[address] [place] [address] Magnesium [Mass/Vol]on 04-27 Interpretation and review of laboratory results [facility] NICOTINE + METABOLITES, URIN Ita 04-27-2024 Anabasine (U) [Mass/Vol] <5 [facility] Comment on above: Performed By: #### N ICMU ####[facility] ([facility]) ([id number])[address] [place] [address] Cotinine (U) [Mass/Vol] 74 ng/mL [facility] Comment on above: Performed By: #### N ICMU ####[facility] ([facility]) ([id number])[address] [place] [address] Nicotine (U) [Mass/Vol] <15 [facility] Comment on above: Result Comment: INTE RPRETIVE INFORMATION: Nicotine and Metabolites, Urine, QuantitativeMethodology: Quantitative Liquid Chromatography-Tandem MassSpectrometryPositive cutoff:Nicotine 15 ng/mLCotinine 15 ng/cC5-IM-Howpvvyu 50 ng/mLAnabasine 5 ng/mLFor medical purposes only; not valid for forensic use.This test is designed to evaluate recent use ofnicotine-containing products. Passive and active exposure cannotbe discriminated definitively, although a cutoff of 100 ng/mLcotinine is frequently used for surgery qualification purposes.For smoking cessation programs or compliance testing, the absenceof expected drug(s) and/or drug metabolite(s) may indicatenon-compliance, inappropriate timing of specimen collectionrelative to drug administration, poor drug absorption,diluted/adulterated urine, or limitations of testing. Theconcentration value must be greater than or equal to the cutoff sage reported as positive. Anabasine is included as a biomarker oftobacco use, versus nicotine replacement. Interpretive questionsshould be directed to the laboratory.This test was developed and its performance characteristicsdetermined by [employer]. It has not been cleared orapproved by the [place] Food and Drug Administration. This test wasperformed in a CLIA certified laboratory and is intended forclinical purposes.Performed By: [employer] [place], [place] [address]Ydoccoqdoy Director: Jasper Larry MD, PhDCLIA Number: [id number] Performed By: #### N ICMU ####[facility] ([facility]) ([id number])[address] [place] [address] Devgi-6-Xhnmthouikvuu ne (U) [Mass/Vol] 1686 ng/mL Normal [facility] Comment on above: Performed By: #### N ICMU ####[facility] ([facility]) ([id number])[address] [place] [address] No Panel Informationon 04-27 Interpretation and review of laboratory results Abnormal [facility] Vancomycinon 04-27-2024 Vancomycin [Mass/Vol] 20.9 ug/mL High 5.0 - 20.0 ug/mL [facility] Vancomycin [Mass/Vol] 20.9 ug/mL High 5.0-20.0 [facility] Comment on above: Order Comment: Pleas e obtain level before next dose is given.Vancomycin levels can be monitored according to area under the curve (AUC) or concentration (ug/mL). The preferred monitoring strategy is determined by the patient's renal function and indication for therapy.For AUC monitoring, a random vancomycin level should be interpreted in the context of AUC rather than the concentration at a single point in time.For concentration monitoring, a trough concentration drawn immediately prior to the next dose is preferred.Therapeutic ranges using concentration-guided results:Peak (all ages): 30.0-40.0 ug/mLTrough (all ages): 10.0-20.0 ug/mL Performed By: #### 2 0578-1 ####JANETH Galo ([id number])[facility] ([facility])[address] [place] [address] Vancomycin [Mass/Vol] 23.1 ug/mL High 5.0 - 20.0 ug/mL [facility] Vancomycin [Mass/Vol] 23.1 ug/mL High 5.0-20.0 [facility] Comment on above: Order Comment: Vanco mycin levels can be monitored according to area under the curve (AUC) or concentration (ug/mL). The preferred monitoring strategy is determined by the patient's renal function and indication for therapy.For AUC monitoring, a random vancomycin level should be interpreted in the context of AUC rather than the concentration at a single point in time.For concentration monitoring, a trough concentration drawn immediately prior to the next dose is preferred.Therapeutic ranges using concentration-guided results:Peak (all ages): 30.0-40.0 ug/mLTrough (all ages): 10.0-20.0 ug/mL Performed By: #### 2 0578-1 ####JANETH Galo ([id number])[facility] ([facility])[address] [place], [place] [address] Vancomycin [Mass/Vol]on 04-17 Interpretation and review of laboratory results Abnormal [facility] Bacteria identifiedon 2024 Bacteria identified Cx Nom (Unsp spec) Abnormal [facility] Comment on above: Performed By: #### 6 463-4 ####JANETH Galo ([id number])[facility] ([facility])[address] [place] [address] Blood type and Indirect anti body screen panel (Bld)on 04-26-2024 ABO group Nom (Bld) [facility] Blood group antibody screen Ql Negative [facility] D Ag Ql (Bld) Positive [facility] CNPSridevi 04-26-2024 MALIN Telephone (FPWADS) ----- DEIDRA DE LA CRUZ ([id number]) 1970 F Date Time Provider Department 04/26/24 BIJAN ELMORE During your visit today, we recorded the following information about you: Carlo Miranda LPN 04/26/2024 3:45 PM Signed Received ed visit summary from [facility]. Placed in provider's inbox for review. Route to MA scanning Allergies As of Date: 04/26/2024 Noted Allergy Reaction PENICILLIN 06/05/2015 16 - Unknown Date Reviewed: 11/18/2023 Reviewed by: Carlo Miranda LPN - Fully Assessed Reason for Visit: Received Outside Medical Records [[id number]] Cmt: [facility] ED Prescriptions as of 04/26/2024 - promethazine (PHENERGAN) 25 mg tablet take 1 tablet by mouth every 6 hours if needed - clonazePAM (KLONOPIN) 0.5 mg tablet Take 1 tablet by mouth three times a day for 30 days. - buPROPion SR (WELLBUTRIN SR) 150 mg 12 hr tablet take 1 tablet by mouth twice a day - levETIRAcetam (KEPPRA) 500 mg tablet Take 1 tablet by mouth two times a day. - famotidine (PEPCID) 20 mg tablet Take 1 tablet by mouth once daily. - sertraline (ZOLOFT) 100 mg tablet take 1 tablet by mouth once daily . WEAN DIRECTED - baclofen 20 mg tablet Take 1 tablet by mouth three times a day. - levothyroxine (LEVOXYL) 75 mcg tablet Take 1 tablet by mouth once daily. Take on empty stomach. For thyroid. - cloNIDine HCl (CATAPRES) 0.1 mg tablet take 1 tablet by mouth three times a day - ibuprofen (MOTRIN) 600 mg tablet Take 1 tablet by mouth every 8 hours as needed for pain. - gabapentin (NEURONTIN) 600 mg tablet Take 1 tablet by mouth three times a day for 90 days. - white petrolatum (AQUAPHOR) 41 % topical ointment Apply to affected area as needed. - acetaminophen (TYLENOL EXTRA STRENGTH) 500 mg tablet Take 2 tablets by mouth every 6 hours as needed for pain. - lidocaine (LIDODERM) 5 % Apply 1 Patch as directed every 24 hours. Remove old patch after 12 hours Location: arm - Mirtazapine (REMERON) 7.5 mg tablet take 1 tablet by mouth at bedtime - Underpads 23 X 24 pads 1 Each as needed. - Foam Bandage (OPTIFOAM) 4 X 4 bndg Apply to affected area as needed. - amLODIPine (NORVASC) 5 mg tablet amlodipine 5 mg tablet - melatonin 5 mg tablet Take 5 mg by mouth. - methadone 5 mg/5 mL solution Take 5 mL by mouth once daily. Problem List As Of Date 04/26/2024 Noted Resolved Chronic anxiety [F41.9] 06/05/2015 Gastroesophageal reflux disease [K21.9] 06/05/2015 Chronic constipation [K59.09] 06/05/2015 Chronic nausea [R11.0] 06/05/2015 Hepatitis C antibody positive in blood [R76.8] 04/08/2017 Chronic hepatitis C without hepatic coma (HCC) *02/03/2019 Positive urine drug screen [R82.5] 04/30/2019 Debility [R53.81] 04/18/2021 Traumatic injury [T14.90XA] 06/27/2021 Chronic pain syndrome [G89.4] 06/27/2021 Multiple fractures [T07.XXXA] 06/27/2021 Seizures (HCC) [R56.9] 09/18/2021 Encounter Status:Closed by CARLO MIRANDA on 04/26/24 Normal [facility] CT Lower leg - right W contr ast Fritz 04-26-2024 Radiology Study observation (narrative) [facility] Work Phone: CT TIBIA FIBULA RIGHT W IV C ONTRASTon 04-26-2024 CT TIBIA FIBULA RIGHT W IV CONTRAST Normal [facility] Comprehensive metabolic 2000 panelon 04-26-2024 Albumin BCP dye [Mass/Vol] 3.3 g/dL Low 3.4 - 5.0 g/dL [facility] ALP [Catalytic activity/Vol] 98 U/L 33 - 110 U/L [facility] ALT With P-5'-P [Catalytic activity/Vol] 9 U/L 7 - 45 U/L [facility] Anion gap [Moles/Vol] 13 mmol/L 10 - 2 0 mmol/L [facility] AST With P-5'-P [Catalytic activity/Vol] 18 U/L 9 - 39 U/L [facility] Bilirubin [Mass/Vol] 0.2 mg/dL 0.0 - 1 .2 mg/dL [facility] Calcium [Mass/Vol] 8.9 mg/dL 8.6 - 10. 6 mg/dL [facility] Chloride [Moles/Vol] 104 mmol/L 98 - 10 7 mmol/L [facility] CO2 [Moles/Vol] 25 mmol/L 21 - 32 mmol/L [facility] Creatinine [Mass/Vol] 0.7 mg/dL 0.50 - 1.05 mg/dL [facility] eGFR - PINF [facility] Glucose [Mass/Vol] 112 mg/dL High 74 - 99 mg/dL [facility] Interpretation and review of laboratory results Abnormal [facility] Potassium [Moles/Vol] 4 mmol/L 3.5 - 5.3 mmol/L [facility] Protein [Mass/Vol] 6.8 g/dL 6.4 - 8.2 g/dL [facility] Sodium [Moles/Vol] 138 mmol/L 136 - 145 mmol/L [facility] Urea nitrogen [Mass/Vol] 8 mg/dL 6 - 23 mg/dL [facility] Albumin BCP dye [Mass/Vol] 3.3 g/dL Low 3.4-5.0 [facility] Comment on above: Performed By: #### 2 4323-8 ####JANETH Galo ([id number])[facility] ([facility])[address] [place] [address] ALP [Catalytic activity/Vol] 98 U/L Normal 33-110 [facility] Comment on above: Performed By: #### 2 4323-8 ####JANETH Galo ([id number])[facility] ([facility])[address] [place] [address] ALT With P-5'-P [Catalytic activity/Vol] 9 U/L Normal 7-45 [facility] Comment on above: Result Comment: Tomasa ents treated with Sulfasalazine may generate falsely decreased results for ALT. Performed By: #### 2 4323-8 ####JANETH Galo ([id number])[facility] ([facility])[address] [place] [address] Anion gap [Moles/Vol] 13 mmol/L Normal 10-20 [facility] Comment on above: Performed By: #### 2 4323-8 ####JANETH Galo ([id number])[facility] ([facility])[address] [place] [address] AST With P-5'-P [Catalytic activity/Vol] 18 U/L Normal 9-39 [facility] Comment on above: Performed By: #### 2 4323-8 ####JANETH Galo ([id number])[facility] ([facility])[address] [place] [address] Bilirubin [Mass/Vol] 0.2 mg/dL Normal 0.0-1.2 [facility] Comment on above: Performed By: #### 2 4323-8 ####JANETH Galo ([id number])[facility] ([facility])[address] [place] [address] Calcium [Mass/Vol] 8.9 mg/dL Normal 8.6-10.6 [facility] Comment on above: Performed By: #### 2 4323-8 ####JANETH Galo ([id number])[facility] ([facility])[address] [place] [address] Chloride [Moles/Vol] 104 mmol/L Normal 98-107 [facility] Comment on above: Performed By: #### 2 4323-8 ####JANETH Galo ([id number])[facility] ([facility])[address] [place] [address] CO2 [Moles/Vol] 25 mmol/L Normal 21-32 [facility] Comment on above: Performed By: #### 2 4323-8 ####JANETH Galo ([id number])[facility] ([facility])[address] [place] [address] Creatinine [Mass/Vol] 0.70 mg/dL Normal 0.50-1.05 [facility] Comment on above: Performed By: #### 2 4323-8 ####JANETH GRAFF L ([id number])[facility] ([facility])[address] [place] [address] GFR/1.73 sq M.predicted MDRD (S/P/Bld) [Vol rate/Area] mL/min/{1.73_m2} Normal >60 [facility] Comment on above: Result Comment: Calc ulations of estimated GFR are performed using the 2020 CKD-EPI Study Refit equation without the race variable for the IDMS-Traceable creatinine methods.https://jasn.asnjournals.org/content/early/ N.1992798665 Performed By: #### 2 4323-8 ####JANETH GRAFF L ([id number])[facility] ([facility])[address] [place] [address] Glucose [Mass/Vol] 112 mg/dL High 74-99 [facility] Comment on above: Performed By: #### 2 4323-8 ####JANETH GRAFF L ([id number])[facility])[address] [place] [address] Potassium [Moles/Vol] 4.0 mmol/L Normal 3.5-5.3 [facility] Comment on above: Performed By: #### 2 4323-8 ####JANETH GRAFF L ([id number])[facility])[address] [place] [address] Protein [Mass/Vol] 6.8 g/dL Normal 6.4-8.2 [facility] Comment on above: Performed By: #### 2 4323-8 ####JANETH GRAFF L ([id number])[facility])[address] [place] [address] Sodium [Moles/Vol] 138 mmol/L Normal 136-145 [facility] Comment on above: Performed By: #### 2 4323-8 ####JANETH Galo ([id number])[facility])[address] [place] [address] Urea nitrogen [Mass/Vol] 8 mg/dL Normal 6-23 [facility] Comment on above: Performed By: #### 2 4323-8 ####JANETH Galo ([id number])[facility] ([facility])[address] [place] [address] ESR Westergren method (Bld) [Velocity]on 04-26-2024 ESR (Bld) [Velocity] 70 mm/h High 0 - 30 mm/h [facility] Interpretation and review of laboratory results Abnormal [facility] Gram Stainon 04-26-2024 GS Gram Stain 3+ White Blood Cells Rare Gram negative rods Rare Gram positive cocci No Epithelial cells Normal [facility] Comment on above: Performed By: #### M 100.2000, M100.3000 #### [facility] [address] [place], [place], [address] No Panel Informationon 04-26 Extra Tube Hold for add-ons. [facility] PST Topon 04-26-2024 Extra Tube Hold for add-ons. [facility] XR Chest Single viewon 04-26 UH MMODAL UH ODAL [facility] Work Phone: [facility] Work Phone: XR Femur - right 2 Viewson 0 04-26-2024 UH MMODAL UH MMODAL [facility] Work Phone: XR Femur - right 2 ViewsOrde red By: Lupis Tabor on 04-26-2024 [facility] Work Phone: Absolute neutrophil countOrd ered By: Pan Abarca on 04-25-2024 Neutrophils (Bld) [#/Vol] 8.8 10*3/uL High 2.0-7.7 [facility] Anion gap in Serum or Plasma Ordered By: Pan Abarca on 04-25-2024 Anion gap [Moles/Vol] 11 mmol/L - [facility] BUN/creatinine ratioOrdered By: Pan Abarca on 04-25-2024 Urea nitrogen/Creatinine [Mass ratio] 11.9 mg/mg - [facility] Basic Metabolic Profile (BMP )on 04-25-2024 BUN/CRE 11.9 RATIO Normal - [facility] Comment on above: Performed By: #### L 500.2500, L100.0100 #### [facility] [address] [place], [address] Calcium [Mass/Vol] 9.0 mg/dL Normal 7.6-11.0 [facility] Comment on above: Performed By: #### L 500.2500, L100.0100 #### [facility] [address] [place], [address] Chloride [Moles/Vol] 102 mmol/L Normal 98-108 [facility] Comment on above: Performed By: #### L 500.2500, L100.0100 #### [facility] [address] [place], [address] CO2 [Moles/Vol] 25.7 mmol/L Normal 21.0-32.0 [facility] Comment on above: Performed By: #### L 500.2500, L100.0100 #### [facility] [address] [place], [address] Creatinine [Mass/Vol] 0.78 mg/dL Normal 0.70-1.20 [facility] Comment on above: Performed By: #### L 500.2500, L100.0100 #### [facility] [address] [place], [address] ECRCL 99.51 ml/min Normal 50-250 [facility] Comment on above: Performed By: #### L 500.2500, L100.0100 #### [facility] [address] [place], [address] GAP 11 Normal 5-15 [facility] Comment on above: Performed By: #### L 500.2500, L100.0100 #### [facility] [address] [place], [address] GFR/1.73 sq M.predicted among non-blacks MDRD (S/P/Bld) [Vol rate/Area] 92 mL/min/{1.73_m2} Normal >60 [facility] Comment on above: Result Comment: mL/m in/1.73m2 CKD-EPI Creatinine Equation (2020) Performed By: #### L 500.2500, L100.0100 #### [facility] [address] [place], [address] Glucose [Mass/Vol] 127 mg/dL High 70-99 [facility] Comment on above: Performed By: #### L 500.2500, L100.0100 #### [facility] [address] [place], [address] Potassium [Moles/Vol] 4.0 mmol/L Normal 3.3-5.1 [facility] Comment on above: Performed By: #### L 500.2500, L100.0100 #### [facility] [address] [place], [address] Sodium [Moles/Vol] 138 mmol/L Normal 133-145 [facility] Comment on above: Performed By: #### L 500.2500, L100.0100 #### [facility] [address] [place], [address] Urea nitrogen [Mass/Vol] 9 mg/dL Normal 4-19 [facility] Comment on above: Performed By: #### L 500.2500, L100.0100 #### [facility] [place], [address] Basic metabolic 2000 panelon 04-25-2024 Anion gap [Moles/Vol] 13 mmol/L 10 - 2 0 mmol/L [facility] Calcium [Mass/Vol] 9.2 mg/dL 8.6 - 10. 6 mg/dL [facility] Chloride [Moles/Vol] 102 mmol/L 98 - 10 7 mmol/L [facility] CO2 [Moles/Vol] 26 mmol/L 21 - 32 mmol/L [facility] Creatinine [Mass/Vol] 0.7 mg/dL 0.50 - 1.05 mg/dL [facility] eGFR - PINF [facility] Glucose [Mass/Vol] 98 mg/dL 74 - 99 mg/dL [facility] Interpretation and review of laboratory results Normal [facility] Potassium [Moles/Vol] 4 mmol/L 3.5 - 5.3 mmol/L [facility] Sodium [Moles/Vol] 137 mmol/L 136 - 145 mmol/L [facility] Urea nitrogen [Mass/Vol] 8 mg/dL 6 - 23 mg/dL [facility] Anion gap [Moles/Vol] 13 mmol/L Normal 10-20 [facility] Comment on above: Performed By: #### 2 4321-2 ####JANETH Galo ([id number])[facility] ([facility])[address] [place] [address] Calcium [Mass/Vol] 9.2 mg/dL Normal 8.6-10.6 [facility] Comment on above: Performed By: #### 2 4321-2 ####JANETH Galo ([id number])[facility] ([facility])[address] [place] [address] Chloride [Moles/Vol] 102 mmol/L Normal 98-107 [facility] Comment on above: Performed By: #### 2 4321-2 ####JANETH Galo ([id number])[facility] ([facility])[address] [place] [address] CO2 [Moles/Vol] 26 mmol/L Normal 21-32 [facility] Comment on above: Performed By: #### 2 4321-2 ####JANETH Galo ([id number])[facility] ([facility])[address] [place] [address] Creatinine [Mass/Vol] 0.70 mg/dL Normal 0.50-1.05 [facility] Comment on above: Performed By: #### 2 4321-2 ####JANETH Galo ([id number])[facility] ([facility])[address] [place] [address] GFR/1.73 sq M.predicted MDRD (S/P/Bld) [Vol rate/Area] mL/min/{1.73_m2} Normal >60 [facility] Comment on above: Result Comment: Calc ulations of estimated GFR are performed using the 2020 CKD-EPI Study Refit equation without the race variable for the IDMS-Traceable creatinine methods.https://jasn.asnjournals.org/content/early/ N.2649621029 Performed By: #### 2 4321-2 ####JANETH Galo ([id number])[facility] ([facility])[address] [place] [address] Glucose [Mass/Vol] 98 mg/dL Normal 74-99 [facility] Comment on above: Performed By: #### 2 4321-2 ####JANETH Galo ([id number])[facility] ([facility])[address] [place] [address] Potassium [Moles/Vol] 4.0 mmol/L Normal 3.5-5.3 [facility] Comment on above: Performed By: #### 2 4321-2 ####JANETH Galo ([id number])[facility] ([facility])[address] [place] [address] Sodium [Moles/Vol] 137 mmol/L Normal 136-145 [facility] Comment on above: Performed By: #### 2 4321-2 ####JANETH Galo ([id number])[facility] ([facility])[address] [place] [address] Urea nitrogen [Mass/Vol] 8 mg/dL Normal 6-23 [facility] Comment on above: Performed By: #### 2 4321-2 ####JANETH Galo ([id number])[facility] ([facility])[address] [place] [address] Basophil percentageOrdered B y: Pan Abarca on 04-25-2024 Basophils/100 WBC (Bld) 0.6 % 0-1 [facility] Blood type and Indirect anti body screen panel (Bld)on 04-25-2024 ABO group Nom (Bld) A Normal [facility] Comment on above: Performed By: #### 3 4532-2 ####JANETH Galo ([id number])[facility] ([facility])[address] [place] [address] Blood group antibody screen Ql Negative [facility] Comment on above: Performed By: #### 3 4532-2 ####JANETH Galo ([id number])[facility] ([facility])[address] [place] [address] D Ag Ql (Bld) Positive [facility] Comment on above: Performed By: #### 3 4532-2 ####JANETH Galo ([id number])[facility] ([facility])[address] [place] [address] C reactive proteinon 025 CRP [Mass/Vol] 10.02 mg/dL High <1.00 [facility] Comment on above: Performed By: #### 1 988-5 ####JANETH Galo ([id number])[facility] ([facility])[address] [facility] [place] [address] CRP [Mass/Vol] 10.04 mg/dL High <1.00 [facility] Comment on above: Performed By: #### 1 988-5 ####JANETH Galo ([id number])[facility] ([facility])[address] [place] [address] C-reactive proteinon 025 CRP [Mass/Vol] 10.02 mg/dL High NINF - 1.00 mg/dL [facility] CRP [Mass/Vol] 10.04 mg/dL High NINF - 1.00 mg/dL [facility] CBC W Auto Differential pane l (Bld)on 04-25-2024 Basophils (Bld) [#/Vol] 0.09 10*3/uL [facility] Basophils/100 WBC (Bld) 0.7 % 0.0 - 2.0 % [facility] Eosinophils (Bld) [#/Vol] 0.32 10*3/uL [facility] Eosinophils/100 WBC (Bld) 2.5 % 0.0 - 6.0 % [facility] Erythrocyte distribution width (RBC) [Ratio] 17.5 % High 11.5 - 14.5 % [facility] Hematocrit (Bld) [Volume fraction] 31.2 % Low 36.0 - 46.0 % [facility] Hemoglobin (Bld) [Mass/Vol] 9.3 g/dL Low 12.0 - 16.0 g/dL [facility] Immature granulocytes (Bld) [#/Vol] 0.07 10*3/uL [facility] Immature granulocytes/100 WBC (Bld) 0.6 % 0.0 - 0.9 % [facility] Interpretation and review of laboratory results Abnormal [facility] Lymphocytes (Bld) [#/Vol] 3.75 10*3/uL [facility] Lymphocytes/100 WBC (Bld) 29.6 % 13.0 - 44.0 % [facility] MCH (RBC) [Entitic mass] 24 pg Low 26.0 - 34.0 pg [facility] MCHC (RBC) [Mass/Vol] 29.8 g/dL Low 32.0 - 36.0 g/dL [facility] MCV (RBC) [Entitic vol] 80 fL 80 - 100 fL [facility] Monocytes (Bld) [#/Vol] 1.16 10*3/uL [facility] Monocytes/100 WBC (Bld) 9.1 % 2.0 - 10.0 % [facility] Neutrophils (Bld) [#/Vol] 7.3 10*3/uL [facility] Neutrophils/100 WBC (Bld) 57.5 % 40.0 - 80.0 % [facility] Nucleated RBC/100 WBC (Bld) [Ratio] 0.5 % [facility] Platelets (Bld) [#/Vol] 768 10*3/uL High [facility] RBC (Bld) [#/Vol] 3.88 10*6/uL Low [facility] WBC (Bld) [#/Vol] 12.7 10*3/uL High [facility] Basophils (Bld) [#/Vol] 0.09 x10*3/uL Normal 0.00-0.10 [facility] Comment on above: Performed By: #### 5 7021-8 ####JANETH Galo ([id number])[facility] ([facility])[address] [place] [address] Basophils/100 WBC (Bld) 0.7 % Normal 0.0-2.0 [facility] Comment on above: Performed By: #### 5 7021-8 ####JANETH Galo ([id number])[facility] ([facility])[address] [place] [address] Eosinophils (Bld) [#/Vol] 0.32 x10*3/uL Normal 0.00-0.70 [facility] Comment on above: Performed By: #### 5 7021-8 ####JANETH Galo ([id number])[facility] ([facility])[address] [place] [address] Eosinophils/100 WBC (Bld) 2.5 % Normal 0.0-6.0 [facility] Comment on above: Performed By: #### 5 7021-8 ####JANETH Galo ([id number])[facility] ([facility])[address] [place] [address] Erythrocyte distribution width (RBC) [Ratio] 17.5 % High 11.5-14.5 [facility] Comment on above: Performed By: #### 5 7021-8 ####JANETH Galo ([id number])[facility] ([facility])[address] [place] [address] Hematocrit (Bld) [Volume fraction] 31.2 % Low 36.0-46.0 [facility] Comment on above: Performed By: #### 5 7021-8 ####JANETH Galo (20605)[facility] ([facility])[address] [place] [address] Hemoglobin (Bld) [Mass/Vol] 9.3 g/dL Low 12.0-16.0 [facility] Comment on above: Performed By: #### 5 7021-8 ####JANETH Galo ([id number])[facility] ([facility])[address] [place] [address] Immature granulocytes (Bld) [#/Vol] 0.07 x10*3/uL Normal 0.00-0.70 [facility] Comment on above: Performed By: #### 5 7021-8 ####JANETH Galo ([id number])[facility] ([facility])[address] [place] [address] Immature granulocytes/100 WBC (Bld) 0.6 % Normal 0.0-0.9 [facility] Comment on above: Result Comment: Catrachita ture Granulocyte Count (IG) includes promyelocytes, myelocytes and metamyelocytes but does not include bands. Percent differential counts (%) should be interpreted in the context of the absolute cell counts (cells/UL). Performed By: #### 5 7021-8 ####JANETH Galo ([id number])[facility] ([facility])[address] [place] [address] Lymphocytes (Bld) [#/Vol] 3.75 x10*3/uL Normal 1.20-4.80 [facility] Comment on above: Performed By: #### 5 7021-8 ####JANETH Galo ([id number])[facility] ([facility])[address] [place] [address] Lymphocytes/100 WBC (Bld) 29.6 % Normal 13.0-44.0 [facility] Comment on above: Performed By: #### 5 7021-8 ####JANETH Galo ([id number])[facility] ([facility])[address] [place] [address] MCH (RBC) [Entitic mass] 24.0 pg Low 26.0-34.0 [facility] Comment on above: Performed By: #### 5 7021-8 ####JANETH Galo ([id number])[facility] ([facility])[address] [place] [address] MCHC (RBC) [Mass/Vol] 29.8 g/dL Low 32.0-36.0 [facility] Comment on above: Performed By: #### 5 7021-8 ####JANETH Galo ([id number])[facility] ([facility])[address] [place] [address] MCV (RBC) [Entitic vol] 80 fL Normal 80-100 [facility] Comment on above: Performed By: #### 5 7021-8 ####JANETH Galo ([id number])[facility] ([facility])[address] [place] [address] Monocytes (Bld) [#/Vol] 1.16 x10*3/uL High 0.10-1.00 [facility] Comment on above: Performed By: #### 5 7021-8 ####JANETH Galo ([id number])[facility] ([facility])[address] [place] [address] Monocytes/100 WBC (Bld) 9.1 % Normal 2.0-10.0 [facility] Comment on above: Performed By: #### 5 7021-8 ####JANETH Galo ([id number])[facility] ([facility])[address] [place] [address] Neutrophils (Bld) [#/Vol] 7.30 x10*3/uL Normal 1.20-7.70 [facility] Comment on above: Result Comment: Perc ent differential counts (%) should be interpreted in the context of the absolute cell counts (cells/uL). Performed By: #### 5 7021-8 ####JANETH Galo ([id number])[facility] ([facility])[address] [place] [address] Neutrophils/100 WBC (Bld) 57.5 % Normal 40.0-80.0 [facility] Comment on above: Performed By: #### 5 7021-8 ####JANETH Galo ([id number])[facility] ([facility])[address] [place] [address] Nucleated RBC/100 WBC (Bld) [Ratio] 0.5 /100 WBCs High 0.0-0.0 [facility] Comment on above: Performed By: #### 5 7021-8 ####JANETH Galo ([id number])[facility] ([facility])[address] [place] [address] Platelets (Bld) [#/Vol] 768 x10*3/uL High 150-450 [facility] Comment on above: Performed By: #### 5 7021-8 ####JANETH Galo ([id number])[facility] ([facility])[address] [place] [address] RBC (Bld) [#/Vol] 3.88 x10*6/uL Low 4.00-5.20 [facility] Comment on above: Performed By: #### 5 7021-8 ####JANETH Galo ([id number])[facility] ([facility])[address] [place] [address] WBC (Bld) [#/Vol] 12.7 x10*3/uL High 4.4-11.3 [facility] Comment on above: Performed By: #### 5 7021-8 ####JANETH Galo ([id number])[facility] ([facility])[address] [place], [place] [address] CRP [Mass/Vol]on 04-25-2024 Interpretation and review of laboratory results Abnormal [facility] Interpretation and review of laboratory results Abnormal [facility] Carbon dioxide, total [Moles /volume] in Central venous bloodOrdered By: Pan Abarca on 04-25-2024 CO2 [Moles/Vol] 25.7 mmol/L 21.0-32.0 [facility] Chloride assayOrdered By: Claire Abarca on 04-25-2024 Chloride [Moles/Vol] 102 mmol/L 98-108 [facility] ESR Westergren method (Bld) [Velocity]on 04-25-2024 ESR (Bld) [Velocity] 96 mm/h High 0 - 30 mm/h [facility] Interpretation and review of laboratory results Abnormal [facility] ESR (Bld) [Velocity] 70 mm/h High 0-30 [facility] Comment on above: Performed By: #### 4 537-7 ####JANETH Galo ([id number])[facility] ([facility])[address] [place] [address] ESR (Bld) [Velocity] 96 mm/h High 0-30 [facility] Comment on above: Performed By: #### 4 537-7 ####JANETH Galo ([id number])[facility] ([facility])[address] [place] [address] Emergency Department Summary on 04-25-2024 Emergency Department Summary [facility] Medical Records Department [address] [place] [address] Emergency Department Summary 04/25/24 MR#: [id number] Acct: [id number] Name: DEIDRA DE LA CRUZ Rep #: [id number] : 1970 54 From: Pan Abarca MD PCP: Dr. Francisco Elmore MD Status:REG ER Location: ED HPI History of Present Illness Chief Complaint: Wound Informant: patient and EMS Narrative Narrative: 54-year-old female had plastic surgery at [facility] 2 or 3 weeks ago with a skin graft on her right lower leg that was taken from her left thigh for a wound that would not heal. She is supposed to follow-up tomorrow on Friday, and she states she has no transportation which is the main reason that she decided to come here to this ER by EMS on Friday. She states that since she was discharged home from the hospital, she has not been able to bend her knee at all. She states she assumes they knew that when they sent her home, but she could bend it before she went to the hospital to have surgery. She was at home by herself, she states she has an autistic 22-year-old who helps her sometimes, and she has had no home nursing or home health care. However she has been having a hard time performing ADLs at home since she cannot get around in a wheelchair since she cannot bend her right knee. When asked if they offered her rehab she states no not that she knows of. She had a wound VAC on the wound of her left thigh which was open before she left the hospital, she is not sure if it was post to be that way or not, but the wound VAC stopped functioning correctly at least a week ago so she has basically left it off, and she has brought herself to no medical attention for any of this until today. Additionally since she cannot bend her knee and sit in her wheelchair she has been laying on checks a lot, and her right buttock has been hurting her and seeping. She denies any fevers, chills, systemic symptoms. She has a lot of numbness around her right knee and other areas of her right lower leg, she states that hurts some, but she does not have any numbness in her feet. She states her plastic surgeon was Dr. Mac. [facility] Home Medications ???Medication ???Instructions ???Recorded ???Last Taken ???Type gabapentin 600 mg tablet 600 mg PO TID 01/04/19 Unknown His tory methadone 10 mg/mL oral concentrate 90 mg PO DAILY 01/04/19 Unknown History sertraline 100 mg tablet 150 mg PO DAILY 01/04/19 Unknown H istory clonidine HCl 0.1 mg tablet 0.1 mg PO Q12H 05/13/22 Unknown Hi story famotidine 20 mg tablet 20 mg PO DAILY 05/13/22 Unknown Hi story levothyroxine 50 mcg tablet 50 mcg PO DAILY 05/13/22 Unknown H istory bupropion HCl 100 mg tablet 150 mg PO BID 11/28/22 Unknown His tory clonazepam 0.5 mg tablet (Klonopin) 0.5 mg PO TID PRN anxiety 11/28 Unknown History levetiracetam PO BID 11/28/22 Unknown History mirtazapine 15 mg tablet (Remeron) 7.5 mg PO QHS 11/28/22 Unknown H istory promethazine 25 mg tablet 25 mg PO TID PRN nausea and Unknown History vomiting sulfamethoxazole 800 1 tab PO Q12H 14 days #28 tabs 02/08 Unknown Rx mg-trimethoprim 160 mg tablet (Bactrim DS) Allergy/AdvReac Type Severity Reaction Status Date / Time Penicillins (PCN) Allergy Unknown Verified 04/25/24 15:03 Surgical History (Updated 05/13/22 @ 15:[address] Nicolas Ramírez DO) History of hip surgery History of facial surgery Surgical History unable to obtain Social History household members: family Smoking Status: Current every day smoker tobacco type: cigarettes alcohol intake: never ROS ROS ED Constitutional Constitutional ED: Denies chills or fever(s) Eyes Eyes: Denies change in vision or diplopia ENT ENT ED: Denies rhinorrhea or sore throat Cardiovascular Cardiovascular: Denies chest pain or palpitations Respiratory/Chest Respiratory/Chest: Denies cough or dyspnea Gastrointestinal Gastrointestinal: Denies abdominal pain, diarrhea, nausea or vomiting Genitourinary Genitourinary ED: Denies dysuria or hematuria Musculoskeletal Musculoskeletal: Reports as per HPI, difficulty walking, extremity pain and other Details: Right buttock pain, no other back pain ; Denies neck pain Integumentary Reports wounds; Denies abscess Neurologic Neurologic: Reports paresthesias RLE (In the knee and lower leg but not distally in the foot); Denies headache(s) or weakness Psychiatric Psychiatric: Denies anxiety or suicidal thoughts EXAM Physical Exam Const Vital Signs: 04/25/24 15:03 04/25/24 15:32 04/25/24 16:46 Temperature 98.7 F 98.7 F Temperature Source Oral Oral Pulse Rate 86 86 84 Respiratory Rate 14 14 16 Blood Pressure 155/66 H 155/66 H Blood Pressure Veda (more content not included)... Normal [facility] Eosinophil percentageOrdered By: Pan Abarca on 04-25-2024 Eosinophils/100 WBC (Bld) 2.3 % 0-5 [facility] Erythrocyte distribution wid th ratioOrdered By: Pan Abarca on 04-25-2024 Erythrocyte distribution width (RBC) [Ratio] 17.7 % High 11.6-14.6 [facility] Erythrocyte distribution wid th standard deviationOrdered By: Pan Abarca on 04-25-2024 Erythrocyte distribution width (RBC) [Entitic vol] 52.3 fL High 35.1-43.9 [facility] Estimation of creatinine isaac aranceOrdered By: Pan Abarca on 04-25-2024 Estimated Creatinine Clearance Calc 99.51 ml/min 50-250 [facility] Femur Min 2 Viewson 04-26-19 Femur Min 2 Views [facility] Imaging Services [address] [place], [place] [address] Femur Min 2 Views MR#: [id number] Acct: [id number] Name: DEIDRA DE LA CRUZ Rep #: [id number] : 1970 F 54 From: Nubia Bueno nd, MD PCP: Dr. Francisco Elmore MD Status: REG ER Study: Femur Min 2 Views Date of Exam: 04/25/24 Exam# [id number] Ordering Dr: Pan Abarca MD PROCEDURE: FEMUR MIN 2 VIEWS REASON FOR EXAM: 54-year-old female, leg wounds. TECHNIQUE: 4 view(s) of the right femur COMPARISON: Right tibia/fibula radiographs 08/2021. FINDINGS: Interval sebastian and screw fixation of the right femur, extending into the proximal tibia. No obvious acute fracture. No suspicious bone lesion. Normal alignment at the hip. Surgical fixation of the right knee joint with expected sclerosis and demineralization. No obvious soft tissue lesion. RAD/Femur Min 2 Views IMPRESSION: No obvious soft tissue lesion. Reading Location: [facility] CC: Dr. Pan Abarca MD; Dr. Francisco Elmore MD Operations And Maintenance Supervisor: Signed Normal [facility] Femur Min 2 Views [facility] Imaging Services [address] [place], [place] [address] Femur Min 2 Views MR#: [id number] Acct: [id number] Name: DEIDRA DE LA CRUZ Rep #: [id number] : 1970 F 54 From: Nubia Bueno nd, MD PCP: Dr. Francisco Elmore MD Status: REG ER Study: Femur Min 2 Views Date of Exam: 04/25/24 Exam# [id number] Ordering Dr: Pan Abarca MD PROCEDURE: FEMUR MIN 2 VIEWS REASON FOR EXAM: 54-year-old female, pain/wound, possible infection. TECHNIQUE: 4 view(s) of the left femur COMPARISON: None. FINDINGS: Prior surgical femoral head resection with plate and screw fixation of the left hip. Scattered surgical clips along the left lateral hip tissues. Large gaseous lucency overlying the surgical clips measuring approximately 15.1 cm in craniocaudal diameter. No acute osseous fracture. No suspicious bone lesion. Severe arthrosis of the left knee joint. Scattered surgical clips overlying the left knee. RAD/Femur Min 2 Views IMPRESSION: Large gaseous lucency along the left lateral hip, compatible with abscess. Surgical consultation is recommended. Reading Location: [facility] CC: Dr. Pan Abarca MD; Dr. Francisco Elmore MD Operations And Maintenance Supervisor: Signed Normal [facility] GFR/1.73 sq M.predicted duarte g non-blacks MDRD (S/P/Bld) [Vol rate/Area]Ordered By: Pan Abarca on 04-25-2024 Estimated GFR (MDRD) Non-Af Amer 92 >60 [facility] Comment on above: mL/min/1.73m2 CKD-EP I Creatinine Equation (2020) Hematocrit Auto (Bld) [Volum e fraction]Ordered By: Pan Abarca on 04-25-2024 Hematocrit (Bld) [Volume fraction] 31.4 % Low 37-47 [facility] Hemoglobin measurementOrdere d By: Pan Abarca on 04-25-2024 Hemoglobin (Bld) [Mass/Vol] 9.3 g/dL Low 12.0-15.0 [facility] Immature granulocytes/100 WB C Auto (Bld)Ordered By: Pan Abarca on 04-25-2024 Immature granulocytes/100 WBC (Bld) 0.700 % 0.0-0.9 [facility] Comment on above: IG% - Immature Granu locytes (promyelocytes, myelocytes and metamyelocytes) > 1% indicates that a LEFT SHIFT is Present. Lymphocytes Auto (Unsp spec) [#/Vol]Ordered By: Pan Abarca on 04-25-2024 Lymphocytes (Bld) [#/Vol] 4.10 10*3/uL 0.83-4.51 [facility] Lymphocytes/100 WBC Auto (Un sp spec)Ordered By: Pan Abarca on 04-25-2024 Lymphocytes/100 WBC (Bld) 27.9 % 19-41 [facility] MCV (mean corpuscular volume ) determinationOrdered By: Pan Abarca on 04-25-2024 MCV (RBC) [Entitic vol] 82.0 fL 81-99 [facility] Manual differential comment David (Bld) [Interp]Ordered By: Pan Abarca on 04-25-2024 Differential Comment SCANNED [facility] Comment on above: THROMBOCYTOSIS NOTED Mean corpuscular hemoglobin (MCH) determinationOrdered By: Pan Abarca on 04-25-2024 MCH (RBC) [Entitic mass] 24.3 pg Low 27.0-32.0 [facility] Mean corpuscular hemoglobin concentration (MCHC) determinationOrdered By: Pan Abarca on 04-25-2024 MCHC (RBC) [Mass/Vol] 29.6 g/dL Low 32-36 [facility] Mean platelet volume determi nationOrdered By: Pan Abarca on 04-25-2024 Platelet mean volume (Bld) [Entitic vol] 10.0 fL 6.2-12.0 [facility] Monocyte percentageOrdered B y: Pan Abarca on 04-25-2024 Monocytes/100 WBC (Bld) 8.9 % 0-10 [facility] Neutrophil percentageOrdered By: Pan Abarca on 04-25-2024 Neutrophils/100 WBC (Bld) 59.6 % 47-70 [facility] No Panel Informationon 04-25 [facility] Nucleated red blood cell per centageOrdered By: Pan Abarca on 04-25-2024 Nucleated RBC/100 WBC (Bld) [Ratio] 0.4 % 0-5 [facility] PT and aPTT panel Coag (PPP) on 04-25-2024 aPTT Coag (PPP) [Time] 40 s High [facility] INR Coag (PPP) [Relative time] 1.2 {INR} High 0.9 - 1.1 [facility] Interpretation and review of laboratory results Abnormal [facility] PT Coag (PPP) [Time] 13.5 s High [facility] aPTT Coag (PPP) [Time] 40 s High 26-36 [facility] Comment on above: Order Comment: The A PTT is no longer used for monitoring Unfractionated Heparin Therapy. For monitoring Heparin Therapy, use the Heparin Assay. Performed By: #### 3 4529-8 ####JANETH Galo ([id number])[facility] ([facility])[address] [place] [address] INR Coag (PPP) [Relative time] 1.2 High 0.9-1.1 [facility] Comment on above: Order Comment: The A PTT is no longer used for monitoring Unfractionated Heparin Therapy. For monitoring Heparin Therapy, use the Heparin Assay. Performed By: #### 3 4529-8 ####JANETH Galo ([id number])[facility] ([facility])[address] [place] [address] PT Coag (PPP) [Time] 13.5 s High 9.8-12.4 [facility] Comment on above: Order Comment: The A PTT is no longer used for monitoring Unfractionated Heparin Therapy. For monitoring Heparin Therapy, use the Heparin Assay. Performed By: #### 3 4529-8 ####JANETH Galo ([id number])[facility] ([facility])[address] [place] [address] Pathologist review David (Unsp spec) [Interp]Ordered By: Pan Abarca on 04-25-2024 Differential Pathologist's Review [facility] Platelet countOrdered By: Claire Abarca on 04-25-2024 Platelets (Bld) [#/Vol] 759 10*3/uL High 150-450 [facility] Comment on above: CRITICAL VALUE PARADA D TO EMBER TOLENTINO (ER)04/25/24 0052 Uri Martínez.RESULTS READ BACK BY SAME. Potassium (Unsp spec) [Mass/ Vol]Ordered By: Pan Abarca on 04-25-2024 Potassium [Moles/Vol] 4.0 mmol/L 3.3-5.1 [facility] RBC Auto (Bld) [#/Vol]Ordere d By: Pan Abarca on 04-25-2024 RBC (Bld) [#/Vol] 3.83 10*6/uL Low 4.2-5.4 [facility] Serum creatinine measurement (mass/volume)Ordered By: Pan Abarca on 04-25-2024 Creatinine [Mass/Vol] 0.78 mg/dL 0.70-1.20 [facility] Serum glucose measurement (m ass/volume)Ordered By: Pan Abarca on 04-25-2024 Glucose [Mass/Vol] 127 mg/dL High 70-99 [facility] Serum or plasma calcium samuel urement (mass/volume)Ordered By: Pan Abarca on 04-25-2024 Calcium [Mass/Vol] 9.0 mg/dL 7.6-11.0 [facility] Serum or plasma urea nitroge n measurement (mass/volume)Ordered By: Pan Abarca on 04-25-2024 Urea nitrogen [Mass/Vol] 9 mg/dL 4-19 [facility] Sodium levelOrdered By: Adryan Abarca on 04-25-2024 Sodium [Moles/Vol] 138 mmol/L 133-145 [facility] Tibia Fibula 2 Viewson 04-25 Tibia Fibula 2 Views [facility] Imaging Services [address] [place], [place] [address] Tibia Fibula 2 Views MR#: [id number] Acct: [id number] Name: DEIDRA DE LA CRUZ Rep #: [id number] : 1970 F 54 From: Nubia Bueno nd, MD PCP: Dr. Francisco Elmore MD Status: [facility] ER Study: Tibia Fibula 2 Views Date of Exam: 04/25/24 Exam# [id number] Ordering Dr: Pan Abarca MD PROCEDURE: TIBIA FIBULA 2 VIEWS REASON FOR EXAM: 54-year-old female, pain, concern for infection. Nonambulatory patient. TECHNIQUE: 3 view(s) of the right tibia and fibula COMPARISON: Prior right tibia/fibula radiographs 08/2021. FINDINGS: Interval sebastian and screw fixation of the distal right femur and proximal tibia, and surgical hardware removal of the prior right tibial ORIF. There is minimal osseous bridging of the known distal tibial fracture since 08/2021. Large soft tissue mass overlying the chronic right distal tibial anterior fracture, measuring at least 9.5 cm with gaseous lucency along the cranial aspect. No new acute osseous fracture. Patchy and diffuse serpiginous sclerosis within the proximal and distal tibia, compatible with chronic bone infarction. Numerous surgical clips throughout the right upper medial and right lower lateral leg. RAD/Tibia Fibula 2 Views IMPRESSION: Large soft tissue mass overlying the chronic right distal anterior tibial fracture with gaseous lucency along the cranial aspect, compatible with developing infection/abscess. Surgical consultation recommended. Reading Location: [facility] CC: Dr. Pan Abarca MD; Dr. Francisco Elmore MD Operations And Maintenance Supervisor: Signed Normal [facility] White blood cell (WBC) count Ordered By: Pan Abarca on 04-25-2024 WBC (Bld) [#/Vol] 14.7 10*3/uL High 4.4-11.0 [facility] XR CHEST 1 VIEWon 04-25-2024 XR CHEST 1 VIEW Normal [facility] XR Chest Single viewon 04-25 Radiology Study observation (narrative) [facility] Work Phone: XR FEMUR RIGHT 2+ VIEWSon XR FEMUR RIGHT 2+ VIEWS Normal [facility] XR Femur - right 2 Viewson 0 04-25-2024 Radiology Study observation (narrative) [facility] Work Phone: Basic metabolic 2000 panelon 04-01-2024 Anion gap [Moles/Vol] 9 mmol/L Low 10 - 2 0 mmol/L [facility] Calcium [Mass/Vol] 8.8 mg/dL 8.6 - 10. 6 mg/dL [facility] Chloride [Moles/Vol] 99 mmol/L 98 - 10 7 mmol/L [facility] CO2 [Moles/Vol] 34 mmol/L High 21 - 32 mmol/L [facility] Creatinine [Mass/Vol] 0.59 mg/dL 0.50 - 1.05 mg/dL [facility] eGFR - PINF [facility] Comment on above: Calculations of bill mated GFR are performed using the 2020 CKD-EPI Study Refit equation without the race variable for the IDMS-Traceable creatinine methods. https://jasn.asnjournals.org/content/early/ASN.146013 8080 Glucose [Mass/Vol] 137 mg/dL High 74 - 99 mg/dL [facility] Interpretation and review of laboratory results Abnormal [facility] Potassium [Moles/Vol] 4.9 mmol/L 3.5 - 5.3 mmol/L [facility] Sodium [Moles/Vol] 137 mmol/L 136 - 145 mmol/L [facility] Urea nitrogen [Mass/Vol] 14 mg/dL 6 - 23 mg/dL [facility] Anion gap [Moles/Vol] 9 mmol/L Low 10-20 [facility] Comment on above: Performed By: #### 2 4321-2 ####JANETH Galo ([id number])[facility] ([facility])[address] [place] [address] Calcium [Mass/Vol] 8.8 mg/dL Normal 8.6-10.6 [facility] Comment on above: Performed By: #### 2 4321-2 ####JANETH Galo ([id number])[facility] ([facility])[address] [place] [address] Chloride [Moles/Vol] 99 mmol/L Normal 98-107 [facility] Comment on above: Performed By: #### 2 4321-2 ####JANETH Galo ([id number])[facility])[address] [place] [address] CO2 [Moles/Vol] 34 mmol/L High 21-32 [facility] Comment on above: Performed By: #### 2 4321-2 ####JANETH Galo ([id number])[facility])[address] [place] [address] Creatinine [Mass/Vol] 0.59 mg/dL Normal 0.50-1.05 [facility] Comment on above: Performed By: #### 2 4321-2 ####JANETH Galo ([id number])[facility] ([facility])[address] [place] [address] GFR/1.73 sq M.predicted MDRD (S/P/Bld) [Vol rate/Area] mL/min/{1.73_m2} Normal >60 [facility] Comment on above: Result Comment: Calc ulations of estimated GFR are performed using the 2020 CKD-EPI Study Refit equation without the race variable for the IDMS-Traceable creatinine methods.https://jasn.asnjournals.org/content/early/ N.2909287889 Performed By: #### 2 4321-2 ####JANETH Galo ([id number])[facility])[address] [place] [address] Glucose [Mass/Vol] 137 mg/dL High 74-99 [facility] Comment on above: Performed By: #### 2 4321-2 ####JANETH Galo ([id number])[facility])[address] [place] [address] Potassium [Moles/Vol] 4.9 mmol/L Normal 3.5-5.3 [facility] Comment on above: Performed By: #### 2 4321-2 ####JANETH GRAFF L ([id number])[facility])[address] [place] [address] Sodium [Moles/Vol] 137 mmol/L Normal 136-145 [facility] Comment on above: Performed By: #### 2 4321-2 ####JANETH Galo ([id number])[facility])[address] [place] [address] Urea nitrogen [Mass/Vol] 14 mg/dL Normal 6-23 [facility] Comment on above: Performed By: #### 2 4321-2 ####JANETH Galo ([id number])[facility])[address] [place] [address] CBC panel Auto (Bld)on 04-01 Erythrocyte distribution width (RBC) [Ratio] 17.4 % High 11.5 - 14.5 % [facility] Hematocrit (Bld) [Volume fraction] 26.5 % Low 36.0 - 46.0 % [facility] Hemoglobin (Bld) [Mass/Vol] 7.6 g/dL Low 12.0 - 16.0 g/dL [facility] Interpretation and review of laboratory results Abnormal [facility] MCH (RBC) [Entitic mass] 26.3 pg 26.0 - 34.0 pg [facility] MCHC (RBC) [Mass/Vol] 28.7 g/dL Low 32.0 - 36.0 g/dL [facility] MCV (RBC) [Entitic vol] 92 fL 80 - 100 fL [facility] Nucleated RBC/100 WBC (Bld) [Ratio] 0.9 % High [facility] Platelets (Bld) [#/Vol] 778 10*3/uL High [facility] RBC (Bld) [#/Vol] 2.89 10*6/uL Low [facility] WBC (Bld) [#/Vol] 12 10*3/uL High [facility] Erythrocyte distribution width (RBC) [Ratio] 17.4 % High 11.5-14.5 [facility] Comment on above: Performed By: #### 5 8410-2 ####JANETH Galo ([id number])[facility])[address] [place] [address] Hematocrit (Bld) [Volume fraction] 26.5 % Low 36.0-46.0 [facility] Comment on above: Performed By: #### 5 8410-2 ####JANETH Galo ([id number])[facility])[address] [place] [address] Hemoglobin (Bld) [Mass/Vol] 7.6 g/dL Low 12.0-16.0 [facility] Comment on above: Performed By: #### 5 8410-2 ####JANETH Galo ([id number])[facility])[address] [place] [address] MCH (RBC) [Entitic mass] 26.3 pg Normal 26.0-34.0 [facility] Comment on above: Performed By: #### 5 8410-2 ####JANETH Galo ([id number])[facility])[address] [place] [address] MCHC (RBC) [Mass/Vol] 28.7 g/dL Low 32.0-36.0 [facility] Comment on above: Performed By: #### 5 8410-2 ####JANETH Galo ([id number])[facility])[address] [place] [address] MCV (RBC) [Entitic vol] 92 fL Normal 80-100 [facility] Comment on above: Performed By: #### 5 8410-2 ####JANETH Galo ([id number])[facility])[address] [place] [address] Nucleated RBC/100 WBC (Bld) [Ratio] 0.9 /100 WBCs High 0.0-0.0 [facility] Comment on above: Performed By: #### 5 8410-2 ####JANETH Galo ([id number])[facility])[address] [place] [address] Platelets (Bld) [#/Vol] 778 x10*3/uL High 150-450 [facility] Comment on above: Performed By: #### 5 8410-2 ####JANETH Galo ([id number])[facility])[address] [place] [address] RBC (Bld) [#/Vol] 2.89 x10*6/uL Low 4.00-5.20 [facility] Comment on above: Performed By: #### 5 8410-2 ####JANETH Galo ([id number])[facility])[address] [place] [address] WBC (Bld) [#/Vol] 12.0 x10*3/uL High 4.4-11.3 [facility] Comment on above: Performed By: #### 5 8410-2 ####JANETH Galo ([id number])[facility])[address] [place] [address] Basic metabolic 2000 panelon 03-31-2024 Anion gap [Moles/Vol] 10 mmol/L 10 - 2 0 mmol/L [facility] Calcium [Mass/Vol] 8.8 mg/dL 8.6 - 10. 6 mg/dL [facility] Chloride [Moles/Vol] 100 mmol/L 98 - 10 7 mmol/L [facility] CO2 [Moles/Vol] 32 mmol/L 21 - 32 mmol/L [facility] Creatinine [Mass/Vol] 0.55 mg/dL 0.50 - 1.05 mg/dL [facility] eGFR - PINF [facility] Comment on above: Calculations of bill mated GFR are performed using the 2020 CKD-EPI Study Refit equation without the race variable for the IDMS-Traceable creatinine methods. https://jasn.asnjournals.org/content//ASN.308899 5027 Glucose [Mass/Vol] 140 mg/dL High 74 - 99 mg/dL [facility] Interpretation and review of laboratory results Abnormal [facility] Potassium [Moles/Vol] 4.9 mmol/L 3.5 - 5.3 mmol/L [facility] Sodium [Moles/Vol] 137 mmol/L 136 - 145 mmol/L [facility] Urea nitrogen [Mass/Vol] 12 mg/dL 6 - 23 mg/dL [facility] Anion gap [Moles/Vol] 10 mmol/L Normal 10-20 [facility] Comment on above: Performed By: #### 2 4321-2 ####JANETH MCDONALDTZER L ([id number])[facility])[address] [place] [address] Calcium [Mass/Vol] 8.8 mg/dL Normal 8.6-10.6 [facility] Comment on above: Performed By: #### 2 4321-2 ####JANETH CONNORMOTZER L ([id number])[facility])[address] [place] [address] Chloride [Moles/Vol] 100 mmol/L Normal 98-107 [facility] Comment on above: Performed By: #### 2 4321-2 ####JANETH SCHMOTZER L ([id number])[facility])[address] [place] [address] CO2 [Moles/Vol] 32 mmol/L Normal 21-32 [facility] Comment on above: Performed By: #### 2 4321-2 ####JANETH CONNORMOTZER L ([id number])[facility])[address] [place] [address] Creatinine [Mass/Vol] 0.55 mg/dL Normal 0.50-1.05 [facility] Comment on above: Performed By: #### 2 4321-2 ####JANETH Galo ([id number])[facility])[address] [place] [address] GFR/1.73 sq M.predicted MDRD (S/P/Bld) [Vol rate/Area] mL/min/{1.73_m2} Normal >60 [facility] Comment on above: Result Comment: Calc ulations of estimated GFR are performed using the 2020 CKD-EPI Study Refit equation without the race variable for the IDMS-Traceable creatinine methods.https://jasn.asnjournals.org/content/early// N.0483575182 Performed By: #### 2 4321-2 ####JANETH Galo ([id number])[facility])[address] [place] [address] Glucose [Mass/Vol] 140 mg/dL High 74-99 [facility] Comment on above: Performed By: #### 2 4321-2 ####JANETH Galo ([id number])[facility])[address] [place] [address] Potassium [Moles/Vol] 4.9 mmol/L Normal 3.5-5.3 [facility] Comment on above: Performed By: #### 2 4321-2 ####JANETH Galo ([id number])[facility])[address] [place] [address] Sodium [Moles/Vol] 137 mmol/L Normal 136-145 [facility] Comment on above: Performed By: #### 2 4321-2 ####JANETH Galo ([id number])[facility])[address] [place] [address] Urea nitrogen [Mass/Vol] 12 mg/dL Normal 6-23 [facility] [facility] Comment on above: Performed By: #### 2 4321-2 ####JANETH Galo ([id number])[facility] ([facility])[address] [place] [address] C reactive proteinon 025 CRP [Mass/Vol] 13.34 mg/dL High <1.00 [facility] Comment on above: Performed By: #### 1 988-5 ####JANETH Galo ([id number])[facility] ([facility])[address] [place] [address] C-reactive proteinon 025 CRP [Mass/Vol] 13.34 mg/dL High NINF - 1.00 mg/dL [facility] CBC panel Auto (Bld)on 03-31 Erythrocyte distribution width (RBC) [Ratio] 17.3 % High 11.5 - 14.5 % [facility] Hematocrit (Bld) [Volume fraction] 25 % Low 36.0 - 46.0 % [facility] Hemoglobin (Bld) [Mass/Vol] 7.4 g/dL Low 12.0 - 16.0 g/dL [facility] Interpretation and review of laboratory results Abnormal [facility] MCH (RBC) [Entitic mass] 26.4 pg 26.0 - 34.0 pg [facility] MCHC (RBC) [Mass/Vol] 29.6 g/dL Low 32.0 - 36.0 g/dL [facility] MCV (RBC) [Entitic vol] 89 fL 80 - 100 fL [facility] Nucleated RBC/100 WBC (Bld) [Ratio] 1.3 % High [facility] Platelets (Bld) [#/Vol] 627 10*3/uL [facility] RBC (Bld) [#/Vol] 2.8 10*6/uL [facility] WBC (Bld) [#/Vol] 13.6 10*3/uL [facility] Erythrocyte distribution width (RBC) [Ratio] 17.3 % High 11.5-14.5 [facility] Comment on above: Performed By: #### 5 8410-2 ####JANETH Galo ([id number])[facility] ([facility])[address] [place] [address] Hematocrit (Bld) [Volume fraction] 25.0 % Low 36.0-46.0 [facility] Comment on above: Performed By: #### 5 8410-2 ####JANETH Galo ([id number])[facility] ([facility])[id number] [place] [address] Hemoglobin (Bld) [Mass/Vol] 7.4 g/dL Low 12.0-16.0 [facility] Comment on above: Performed By: #### 5 8410-2 ####JANETH Galo ([id number])[facility] ([facility])[id number] [place] [address] MCH (RBC) [Entitic mass] 26.4 pg Normal 26.0-34.0 [facility] Comment on above: Performed By: #### 5 8410-2 ####JANETH Galo ([id number])[facility] ([facility])[address] [place] [address] MCHC (RBC) [Mass/Vol] 29.6 g/dL Low 32.0-36.0 [facility] Comment on above: Performed By: #### 5 8410-2 ####JANETH Galo ([id number])[facility] ([facility])[address] [place] [address] MCV (RBC) [Entitic vol] 89 fL Normal 80-100 [facility] Comment on above: Performed By: #### 5 8410-2 ####JANETH Galo ([id number])[facility] ([facility])[address] [place] [address] Nucleated RBC/100 WBC (Bld) [Ratio] 1.3 /100 WBCs High 0.0-0.0 [facility] Comment on above: Performed By: #### 5 8410-2 ####JANETH Galo ([id number])[facility] ([facility])[address] [place] [address] Platelets (Bld) [#/Vol] 627 x10*3/uL High 150-450 [facility] Comment on above: Performed By: #### 5 8410-2 ####JANETH Galo ([id number])[facility] ([facility])[address] [place] [address] RBC (Bld) [#/Vol] 2.80 x10*6/uL Low 4.00-5.20 [facility] Comment on above: Performed By: #### 5 8410-2 ####JANETH Galo ([id number])[facility] ([facility])[address] [place] [address] WBC (Bld) [#/Vol] 13.6 x10*3/uL High 4.4-11.3 [facility] Comment on above: Performed By: #### 5 8410-2 ####JANETH Galo ([id number])[facility] ([facility])[address] [place] [address] CRP [Mass/Vol]on 03-31-2024 Interpretation and review of laboratory results Abnormal [facility] ESR Westergren method (Bld) [Velocity]on 03-31-2024 ESR (Bld) [Velocity] 32 mm/h High 0 - 30 mm/h [facility] Interpretation and review of laboratory results Abnormal [facility] ESR (Bld) [Velocity] 32 mm/h High 0-30 [facility] Comment on above: Performed By: #### 4 537-7 ####JANETH Galo ([id number])[facility] ([facility])[address] [place] [address] Basic metabolic 2000 panelon 03-30-2024 Anion gap [Moles/Vol] 10 mmol/L 10 - 2 0 mmol/L [facility] Calcium [Mass/Vol] 9 mg/dL 8.6 - 10. 6 mg/dL [facility] Chloride [Moles/Vol] 98 mmol/L 98 - 10 7 mmol/L [facility] CO2 [Moles/Vol] 32 mmol/L 21 - 32 mmol/L [facility] Creatinine [Mass/Vol] 0.51 mg/dL 0.50 - 1.05 mg/dL [facility] eGFR - PINF [facility] Comment on above: Calculations of bill mated GFR are performed using the 2020 CKD-EPI Study Refit equation without the race variable for the IDMS-Traceable creatinine methods. https://jasn.asnjournals.org/content//ASN.810797 4102 Glucose [Mass/Vol] 129 mg/dL High 74 - 99 mg/dL [facility] Interpretation and review of laboratory results Abnormal [facility] Potassium [Moles/Vol] 4.4 mmol/L 3.5 - 5.3 mmol/L [facility] Sodium [Moles/Vol] 136 mmol/L 136 - 145 mmol/L [facility] Urea nitrogen [Mass/Vol] 12 mg/dL 6 - 23 mg/dL [facility] Anion gap [Moles/Vol] 10 mmol/L Normal 10-20 [facility] Comment on above: Performed By: #### 2 4321-2 ####JANETH Galo ([id number])[facility] ([facility])[address] [place] [address] Calcium [Mass/Vol] 9.0 mg/dL Normal 8.6-10.6 [facility] Comment on above: Performed By: #### 2 4321-2 ####JANETH GRAFF L ([id number])[facility] ([facility])[address] [place] [address] Chloride [Moles/Vol] 98 mmol/L Normal 98-107 [facility] Comment on above: Performed By: #### 2 4321-2 ####JANETH GRAFF L ([id number])[facility] ([facility])[address] [place] [address] CO2 [Moles/Vol] 32 mmol/L Normal 21-32 [facility] Comment on above: Performed By: #### 2 4321-2 ####JANETH Galo ([id number])[facility] ([facility])[address] [place] [address] Creatinine [Mass/Vol] 0.51 mg/dL Normal 0.50-1.05 [facility] Comment on above: Performed By: #### 2 4321-2 ####JANETH Galo ([id number])[facility] ([facility])[address] [place] [address] GFR/1.73 sq M.predicted MDRD (S/P/Bld) [Vol rate/Area] mL/min/{1.73_m2} Normal >60 [facility] Comment on above: Result Comment: Calc ulations of estimated GFR are performed using the 2020 CKD-EPI Study Refit equation without the race variable for the IDMS-Traceable creatinine methods.https://jasn.asnjournals.org/content/early// N.1503081931 Performed By: #### 2 432-2 ####JANETH Galo ([id number])[facility] ([facility])[address] [place] [address] Glucose [Mass/Vol] 129 mg/dL High 74-99 [facility] Comment on above: Performed By: #### 2 4321-2 ####JANETH Galo ([id number])[facility] ([facility])[address] [place] [address] Potassium [Moles/Vol] 4.4 mmol/L Normal 3.5-5.3 [facility] Comment on above: Performed By: #### 2 4321-2 ####JANETH Galo ([id number])[facility] ([facility])[address] [place] [address] Sodium [Moles/Vol] 136 mmol/L Normal 136-145 [facility] Comment on above: Performed By: #### 2 4321-2 ####JANETH Galo ([id number])[facility])[address] [place] [address] Urea nitrogen [Mass/Vol] 12 mg/dL Normal 6-23 [facility] Comment on above: Performed By: #### 2 4321-2 ####JANETH Galo ([id number])[facility])[address] [place] [address] CBC panel Auto (Bld)on 03-30 Erythrocyte distribution width (RBC) [Ratio] 17.2 % High 11.5 - 14.5 % [facility] Hematocrit (Bld) [Volume fraction] 27.1 % Low 36.0 - 46.0 % [facility] Hemoglobin (Bld) [Mass/Vol] 7.9 g/dL Low 12.0 - 16.0 g/dL [facility] Interpretation and review of laboratory results Abnormal [facility] MCH (RBC) [Entitic mass] 26.4 pg 26.0 - 34.0 pg [facility] MCHC (RBC) [Mass/Vol] 29.2 g/dL Low 32.0 - 36.0 g/dL [facility] MCV (RBC) [Entitic vol] 91 fL 80 - 100 fL [facility] Nucleated RBC/100 WBC (Bld) [Ratio] 2.5 % High [facility] Platelets (Bld) [#/Vol] 566 10*3/uL High [facility] RBC (Bld) [#/Vol] 2.99 10*6/uL Low [facility] WBC (Bld) [#/Vol] 15.7 10*3/uL High [facility] Erythrocyte distribution width (RBC) [Ratio] 17.2 % High 11.5-14.5 [facility] Comment on above: Performed By: #### 5 8410-2 ####JANETH Galo ([id number])[facility] ([facility])[address] [place] [address] Hematocrit (Bld) [Volume fraction] 27.1 % Low 36.0-46.0 [facility] Comment on above: Performed By: #### 5 8410-2 ####JANETH Galo ([id number])[facility] ([facility])[address] [place] [address] Hemoglobin (Bld) [Mass/Vol] 7.9 g/dL Low 12.0-16.0 [facility] Comment on above: Performed By: #### 5 8410-2 ####JANETH Galo ([id number])[facility] ([facility])[address] [place] [address] MCH (RBC) [Entitic mass] 26.4 pg Normal 26.0-34.0 [facility] Comment on above: Performed By: #### 5 8410-2 ####JANETH Galo ([id number])[facility] ([facility])[address] [place] [address] MCHC (RBC) [Mass/Vol] 29.2 g/dL Low 32.0-36.0 [facility] Comment on above: Performed By: #### 5 8410-2 ####JANETH Galo ([id number])[facility] ([facility])[address] [place] [address] MCV (RBC) [Entitic vol] 91 fL Normal 80-100 [facility] Comment on above: Performed By: #### 5 8410-2 ####JANETH Galo (97531)[facility] ([facility])[address] [place] [address] Nucleated RBC/100 WBC (Bld) [Ratio] 2.5 /100 WBCs High 0.0-0.0 [facility] Comment on above: Performed By: #### 5 8410-2 ####JANETH Galo ([id number])[facility] ([facility])[address] [place] [address] Platelets (Bld) [#/Vol] 566 x10*3/uL High 150-450 [facility] Comment on above: Performed By: #### 5 8410-2 ####JANETH RANGELER L ([id number])[facility] ([facility])[address] [place] [address] RBC (Bld) [#/Vol] 2.99 x10*6/uL Low 4.00-5.20 [facility] Comment on above: Performed By: #### 5 8410-2 ####JANETH SCHMOTZER L ([id number])[facility] ([facility])[address] [place] [address] WBC (Bld) [#/Vol] 15.7 x10*3/uL High 4.4-11.3 [facility] Comment on above: Performed By: #### 5 8410-2 ####JANETH CONNORMOTZER L ([id number])[facility] ([facility])[address] [place] [address] Bacteria identified Cx Nom ( Unsp spec)Ordered By: Corrina Galo on 03-29-2024 Interpretation and review of laboratory results Abnormal [facility] Microscopic observation Gram stain Nom (Unsp spec) No polymorphonuclear leukocytes seen [facility] Microscopic observation Gram stain Nom (Unsp spec) No organisms seen [facility] Basic metabolic 2000 panelon 03-29-2024 Anion gap [Moles/Vol] 11 mmol/L 10 - 2 0 mmol/L [facility] Calcium [Mass/Vol] 8.7 mg/dL 8.6 - 10. 6 mg/dL [facility] Chloride [Moles/Vol] 102 mmol/L 98 - 10 7 mmol/L [facility] CO2 [Moles/Vol] 30 mmol/L 21 - 32 mmol/L [facility] Creatinine [Mass/Vol] 0.58 mg/dL 0.50 - 1.05 mg/dL [facility] eGFR - PINF [facility] Comment on above: Calculations of bill mated GFR are performed using the 2020 CKD-EPI Study Refit equation without the race variable for the IDMS-Traceable creatinine methods. https://jasn.asnjournals.org/content//ASN.111961 4643 Glucose [Mass/Vol] 103 mg/dL High 74 - 99 mg/dL [facility] Interpretation and review of laboratory results Abnormal [facility] Potassium [Moles/Vol] 5.3 mmol/L 3.5 - 5.3 mmol/L [facility] Sodium [Moles/Vol] 138 mmol/L 136 - 145 mmol/L [facility] Urea nitrogen [Mass/Vol] 13 mg/dL 6 - 23 mg/dL [facility] Anion gap [Moles/Vol] 11 mmol/L Normal 10-20 [facility] Comment on above: Performed By: #### 2 4321-2 ####JANETH GRAFF L ([id number])[facility] ([facility])[address] [place] [address] Calcium [Mass/Vol] 8.7 mg/dL Normal 8.6-10.6 [facility] Comment on above: Performed By: #### 2 4321-2 ####JANETH GRAFF L ([id number])[facility] ([facility])[address] [place] [address] Chloride [Moles/Vol] 102 mmol/L Normal 98-107 [facility] Comment on above: Performed By: #### 2 4321-2 ####JANETH CONNORMOTZER L (91806)[facility] ([facility])[address] [place] [address] CO2 [Moles/Vol] 30 mmol/L Normal 21-32 [facility] Comment on above: Performed By: #### 2 4321-2 ####JANETH GRAFF L ([id number])[facility] ([facility])[address] [place] [address] Creatinine [Mass/Vol] 0.58 mg/dL Normal 0.50-1.05 [facility] Comment on above: Performed By: #### 2 4321-2 ####JANETH GRAFF L ([id number])[facility] ([facility])[address] [place] [address] GFR/1.73 sq M.predicted MDRD (S/P/Bld) [Vol rate/Area] mL/min/{1.73_m2} Normal >60 [facility] Comment on above: Result Comment: Calc ulations of estimated GFR are performed using the 2020 CKD-EPI Study Refit equation without the race variable for the IDMS-Traceable creatinine methods.https://jasn.asnjournals.org/content// N.2790828197 Performed By: #### 2 4321-2 ####JANETH Galo ([id number])[facility] ([facility])[address] [place] [address] Glucose [Mass/Vol] 103 mg/dL High 74-99 [facility] Comment on above: Performed By: #### 2 4321-2 ####JANETH GRAFF L ([id number])[facility] ([facility])[address] [place] [address] Potassium [Moles/Vol] 5.3 mmol/L Normal 3.5-5.3 [facility] Comment on above: Performed By: #### 2 4321-2 ####JANETH GRAFF L (75582)[facility] ([facility])[address] [place] [address] Sodium [Moles/Vol] 138 mmol/L Normal 136-145 [facility] Comment on above: Performed By: #### 2 4321-2 ####JANETH CONNORMOTZER L ([id number])[facility] ([facility])[address] [place] [address] Urea nitrogen [Mass/Vol] 13 mg/dL Normal 6-23 [facility] Comment on above: Performed By: #### 2 4321-2 ####JANETH CONNORMOTZER L ([id number])[facility] ([facility])[address] [place] [address] Anion gap [Moles/Vol] 11 mmol/L 10 - 2 0 mmol/L [facility] Calcium [Mass/Vol] 8.8 mg/dL 8.6 - 10. 6 mg/dL [facility] Chloride [Moles/Vol] 102 mmol/L 98 - 10 7 mmol/L [facility] CO2 [Moles/Vol] 31 mmol/L 21 - 32 mmol/L [facility] Creatinine [Mass/Vol] 0.61 mg/dL 0.50 - 1.05 mg/dL [facility] eGFR - PINF [facility] Comment on above: Calculations of bill mated GFR are performed using the 2020 CKD-EPI Study Refit equation without the race variable for the IDMS-Traceable creatinine methods. https://jasn.asnjournals.org/content//ASN.723340 0122 Glucose [Mass/Vol] 118 mg/dL High 74 - 99 mg/dL [facility] Interpretation and review of laboratory results Abnormal [facility] Potassium [Moles/Vol] 5.5 mmol/L High 3.5 - 5.3 mmol/L [facility] Sodium [Moles/Vol] 138 mmol/L 136 - 145 mmol/L [facility] Urea nitrogen [Mass/Vol] 14 mg/dL 6 - 23 mg/dL [facility] Anion gap [Moles/Vol] 11 mmol/L Normal 10-20 [facility] Comment on above: Performed By: #### 2 4321-2 ####JANETH Galo ([id number])[facility] ([facility])[address] [place] [address] Calcium [Mass/Vol] 8.8 mg/dL Normal 8.6-10.6 [facility] Comment on above: Performed By: #### 2 4321-2 ####JANETH GRAFF L (94332)[facility] ([facility])[address] [place] [address] Chloride [Moles/Vol] 102 mmol/L Normal 98-107 [facility] Comment on above: Performed By: #### 2 4321-2 ####JANETH GRAFF L (85392)[facility] ([facility])[address] [place] [address] CO2 [Moles/Vol] 31 mmol/L Normal 21-32 [facility] Comment on above: Performed By: #### 2 4321-2 ####JANETH Galo ([id number])[facility] ([facility])[address] [place] [address] Creatinine [Mass/Vol] 0.61 mg/dL Normal 0.50-1.05 [facility] Comment on above: Performed By: #### 2 4321-2 ####JANETH Galo (55646)[facility] ([facility])[address] [place] [address] GFR/1.73 sq M.predicted MDRD (S/P/Bld) [Vol rate/Area] mL/min/{1.73_m2} Normal >60 [facility] Comment on above: Result Comment: Calc ulations of estimated GFR are performed using the 2020 CKD-EPI Study Refit equation without the race variable for the IDMS-Traceable creatinine methods.https://jasn.asnjournals.org/content/early// N.4917047845 Performed By: #### 2 4321-2 ####JANETH Galo ([id number])[facility] ([facility])[address] [place] [address] Glucose [Mass/Vol] 118 mg/dL High 74-99 [facility] Comment on above: Performed By: #### 2 4321-2 ####JANETH Galo ([id number])[facility] ([facility])[address] [place] [address] Potassium [Moles/Vol] 5.5 mmol/L High 3.5-5.3 [facility] Comment on above: Performed By: #### 2 4321-2 ####JANETH Galo (14330)[facility] ([facility])[address] [place] [address] Sodium [Moles/Vol] 138 mmol/L Normal 136-145 [facility] Comment on above: Performed By: #### 2 4321-2 ####JANETH Galo ([id number])[facility] ([facility])[address] [place] [address] Urea nitrogen [Mass/Vol] 14 mg/dL Normal - [facility] Comment on above: Performed By: #### 2 4321-2 ####JANETH Galo (12323)[facility] ([facility])[address] [place] [address] C reactive proteinon 025 CRP [Mass/Vol] 17.66 mg/dL High <1.00 [facility] Comment on above: Performed By: #### 1 988-5 ####JANETH Galo ([id number])[facility] ([facility])[address] [place] [address] C-reactive proteinon 025 CRP [Mass/Vol] 17.66 mg/dL High NINF - 1.00 mg/dL [facility] CBC panel Auto (Bld)on 03-29 Erythrocyte distribution width (RBC) [Ratio] 17.3 % High 11.5 - 14.5 % [facility] Hematocrit (Bld) [Volume fraction] 27.1 % Low 36.0 - 46.0 % [facility] Hemoglobin (Bld) [Mass/Vol] 8.1 g/dL Low 12.0 - 16.0 g/dL [facility] Interpretation and review of laboratory results Abnormal [facility] MCH (RBC) [Entitic mass] 26.8 pg 26.0 - 34.0 pg [facility] MCHC (RBC) [Mass/Vol] 29.9 g/dL Low 32.0 - 36.0 g/dL [facility] MCV (RBC) [Entitic vol] 90 fL 80 - 100 fL [facility] Nucleated RBC/100 WBC (Bld) [Ratio] 5.4 % High [facility] Platelets (Bld) [#/Vol] 461 10*3/uL High [facility] RBC (Bld) [#/Vol] 3.02 10*6/uL Low [facility] WBC (Bld) [#/Vol] 16.9 10*3/uL High [facility] Erythrocyte distribution width (RBC) [Ratio] 17.3 % High 11.5-14.5 [facility] Comment on above: Performed By: #### 5 8410-2 ####JANETH Galo ([id number])[facility] ([facility])[address] [place] [address] Hematocrit (Bld) [Volume fraction] 27.1 % Low 36.0-46.0 [facility] Comment on above: Performed By: #### 5 8410-2 ####JANETH Galo ([id number])[facility] ([facility])[address] [place] [address] Hemoglobin (Bld) [Mass/Vol] 8.1 g/dL Low 12.0-16.0 [facility] Comment on above: Performed By: #### 5 8410-2 ####JANETH Galo ([id number])[facility] ([facility])[address] [place] [address] MCH (RBC) [Entitic mass] 26.8 pg Normal 26.0-34.0 [facility] Comment on above: Performed By: #### 5 8410-2 ####JANETH Galo ([id number])[facility] ([facility])[address] [place] [address] MCHC (RBC) [Mass/Vol] 29.9 g/dL Low 32.0-36.0 [facility] Comment on above: Performed By: #### 5 8410-2 ####JANETH Galo ([id number])[facility] ([facility])[address] [place] [address] MCV (RBC) [Entitic vol] 90 fL Normal 80-100 [facility] Comment on above: Performed By: #### 5 8410-2 ####JANETH Galo (71008)[facility] ([facility])[address] [place] [address] Nucleated RBC/100 WBC (Bld) [Ratio] 5.4 /100 WBCs High 0.0-0.0 [facility] Comment on above: Performed By: #### 5 8410-2 ####JANETH Galo ([id number])[facility] ([facility])[address] [place] [address] Platelets (Bld) [#/Vol] 461 x10*3/uL High 150-450 [facility] Comment on above: Performed By: #### 5 8410-2 ####JANETH Galo ([id number])[facility] ([facility])[address] [place] [address] RBC (Bld) [#/Vol] 3.02 x10*6/uL Low 4.00-5.20 [facility] Comment on above: Performed By: #### 5 8410-2 ####JANETH Galo (41951)[facility] ([facility])[address] [place] [address] WBC (Bld) [#/Vol] 16.9 x10*3/uL High 4.4-11.3 [facility] Comment on above: Performed By: #### 5 8410-2 ####JANETH Galo ([id number])[facility] ([facility])[address] [place] [address] CRP [Mass/Vol]on 03-29-2024 Interpretation and review of laboratory results Abnormal [facility] ESR Westergren method (Bld) [Velocity]on 03-29-2024 ESR (Bld) [Velocity] 49 mm/h High 0 - 30 mm/h [facility] Interpretation and review of laboratory results Abnormal [facility] ESR (Bld) [Velocity] 49 mm/h High 0-30 [facility] Comment on above: Performed By: #### 4 537-7 ####JANETH Galo ([id number])[facility] ([facility])[address] [place] [id number] No Panel Informationon 03-29 Interval explantatio n of hardware in the tibia with placement of antibiotic beads. Soft tissue edema about calf. MACRO: None Signed by: Luis F Ochoa 03/29/2024 4:40 PM Dictation workstation: [id number] MMODAL Interpreted By: Luis F Mckinney, STUDY: XR KNEE RIGHT 1-2 VIEWS; XR TIBIA FIBULA RIGHT 2 VIEWS; ; 03/29/2024 3:55 pm; 03/29/2024 3:57 pm INDICATION: Signs/Symptoms:s/p R knee fusion. COMPARISON: 08/25/2023. ACCESSION NUMBER(S): [id number]; [id number] ORDERING CLINICIAN: AMIE CHA FINDINGS: Right knee, two views. Right tibia fibula, two views. Interval explantation of hardware from the tibia. Interval placement of intramedullary antibiotic beads throughout the tibia. Redemonstration of distal tibial diaphyseal fracture. In addition there is interval fusion of the ankle with intramedullary sebastian and screws. Remote proximal fibular fracture present. There is marked soft tissue edema about the calf. MMODAL Luis F Ochoa MD - 03/29/2024 Interpreted By: Luis F Ochoa, STUDY: XR KNEE RIGHT 1-2 VIEWS; XR TIBIA FIBULA RIGHT 2 VIEWS; ; 03/29/2024 3:55 pm; 03/29/2024 3:57 pm INDICATION: Signs/Symptoms:s/p R knee fusion. COMPARISON: 08/25/2023. ACCESSION NUMBER(S): [id number]; [id number] ORDERING CLINICIAN: AMIE CHA FINDINGS: Right knee, two views. Right tibia fibula, two views. Interval explantation of hardware from the tibia. Interval placement of intramedullary antibiotic beads throughout the tibia. Redemonstration of distal tibial diaphyseal fracture. In addition there is interval fusion of the ankle with intramedullary sebastian and screws. Remote proximal fibular fracture present. There is marked soft tissue edema about the calf. IMPRESSION: Interval explantation of hardware in the tibia with placement of antibiotic beads. Soft tissue edema about calf. MACRO: None Signed by: Luis F Ochoa 03/29/2024 4:40 PM Dictation workstation: [id number] [facility] Work Phone: Radiology Study observation (narrative) [facility] Work Phone: No Panel InformationOrdered By: Luis F Ochoa on 03-29-2024 [facility] Work Phone: Tissue/Wound Culture/SmearOr dered By: Corrina Galo on 03-29-2024 Bacteria identified Cx Nom (Unsp spec) (1+) Rare Escherichia coli Abnormal [facility] XR KNEE RIGHT 1-2 VIEWSon XR KNEE RIGHT 1-2 VIEWS Normal [facility] Comment on above: Order Comment: Lorena valdes obtain AP and lateral views XR TIBIA FIBULA RIGHT 2 VIEW Son 03-29-2024 XR TIBIA FIBULA RIGHT 2 VIEWS Normal [facility] C reactive proteinon 025 CRP [Mass/Vol] 21.25 mg/dL High <1.00 [facility] Comment on above: Performed By: #### 1 988-5 ####JANETH Galo ([id number])[facility] ([facility])[address] [place] [address] C-reactive proteinon 025 CRP [Mass/Vol] 21.25 mg/dL High NINF - 1.00 mg/dL [facility] CBC panel Auto (Bld)on 03-28 Erythrocyte distribution width (RBC) [Ratio] 17.7 % High 11.5 - 14.5 % [facility] Hematocrit (Bld) [Volume fraction] 27.9 % Low 36.0 - 46.0 % [facility] Hemoglobin (Bld) [Mass/Vol] 8.1 g/dL Low 12.0 - 16.0 g/dL [facility] Interpretation and review of laboratory results Abnormal [facility] MCH (RBC) [Entitic mass] 26.2 pg 26.0 - 34.0 pg [facility] MCHC (RBC) [Mass/Vol] 29 g/dL Low 32.0 - 36.0 g/dL [facility] MCV (RBC) [Entitic vol] 90 fL 80 - 100 fL [facility] Nucleated RBC/100 WBC (Bld) [Ratio] 7.5 % High [facility] Platelets (Bld) [#/Vol] 370 10*3/uL [facility] RBC (Bld) [#/Vol] 3.09 10*6/uL Low [facility] WBC (Bld) [#/Vol] 16.5 10*3/uL High [facility] [place]rythrocyte distribution width (RBC) [Ratio] 17.7 % High 11.5-14.5 [facility] Comment on above: Performed By: #### 5 8410-2 ####JANETH Galo ([id number])[facility] ([facility])[address] [place] [address] Hematocrit (Bld) [Volume fraction] 27.9 % Low 36.0-46.0 [facility] Comment on above: Performed By: #### 5 8410-2 ####JANETH Galo ([id number])[facility] ([facility])[address] [place] [address] 38480 Hemoglobin (Bld) [Mass/Vol] 8.1 g/dL Low 12.0-16.0 [facility] Comment on above: Performed By: #### 5 8410-2 ####JANETH Galo ([id number])[facility] ([facility])[address] [place] [address] 80480 MCH (RBC) [Entitic mass] 26.2 pg Normal 26.0-34.0 [facility] Comment on above: Performed By: #### 5 8410-2 ####JANETH Galo ([id number])[facility])[address] [place] [address] 26159 MCHC (RBC) [Mass/Vol] 29.0 g/dL Low 32.0-36.0 [facility] Comment on above: Performed By: #### 5 8410-2 ####JANETH Galo ([id number])[facility])[address] [place] [address] MCV (RBC) [Entitic vol] 90 fL Normal 80-100 [facility] Comment on above: Performed By: #### 5 8410-2 ####JANETH Galo ([id number])[facility])[address] [place] [address] 23944 Nucleated RBC/100 WBC (Bld) [Ratio] 7.5 /100 WBCs High 0.0-0.0 [facility] Comment on above: Performed By: #### 5 8410-2 ####JANETH Galo ([id number])[facility])[address] [place] [address]3852 Platelets (Bld) [#/Vol] 370 x10*3/uL Normal 150-450 [facility] Comment on above: Performed By: #### 5 8410-2 ####JANETH Galo ([id number])[facility] ([facility])[address] [place] [address] 86572 RBC (Bld) [#/Vol] 3.09 x10*6/uL Low 4.00-5.20 [facility] Comment on above: Performed By: #### 5 8410-2 ####JANETH Galo ([id number])[facility])[address] [place] [address]1164 WBC (Bld) [#/Vol] 16.5 x10*3/uL High 4.4-11.3 [facility] Comment on above: Performed By: #### 5 8410-2 ####JANETH Galo ([id number])[facility])[address] [place] [address] Comprehensive metabolic 2000 panelon 03-28-2024 Albumin BCP dye [Mass/Vol] 3.6 g/dL 3.4 - 5.0 g/dL [facility] ALP [Catalytic activity/Vol] 129 U/L High 33 - 110 U/L [facility] ALT With P-5'-P [Catalytic activity/Vol] 19 U/L 7 - 45 U/L [facility] Comment on above: Patients treated wit h Sulfasalazine may generate falsely decreased results for ALT. Anion gap [Moles/Vol] 12 mmol/L 10 - 2 0 mmol/L [facility] AST With P-5'-P [Catalytic activity/Vol] 18 U/L 9 - 39 U/L [facility] Bilirubin [Mass/Vol] 0.3 mg/dL 0.0 - 1 .2 mg/dL [facility] Calcium [Mass/Vol] 8.9 mg/dL 8.6 - 10. 6 mg/dL [facility] Chloride [Moles/Vol] 104 mmol/L 98 - 10 7 mmol/L [facility] CO2 [Moles/Vol] 26 mmol/L 21 - 32 mmol/L [facility] Creatinine [Mass/Vol] 0.64 mg/dL 0.50 - 1.05 mg/dL [facility] eGFR - PINF [facility] Comment on above: Calculations of bill mated GFR are performed using the 2020 CKD-EPI Study Refit equation without the race variable for the IDMS-Traceable creatinine methods. https://jasn.asnjournals.org/content//ASN.329851 7767 Glucose [Mass/Vol] 101 mg/dL High 74 - 99 mg/dL [facility] Potassium [Moles/Vol] 4.7 mmol/L 3.5 - 5.3 mmol/L [facility] Protein [Mass/Vol] 6.9 g/dL 6.4 - 8.2 g/dL [facility] Sodium [Moles/Vol] 137 mmol/L 136 - 145 mmol/L [facility] Urea nitrogen [Mass/Vol] 15 mg/dL 6 - 23 mg/dL [facility] Albumin BCP dye [Mass/Vol] 3.6 g/dL Normal 3.4-5.0 [facility] Comment on above: Performed By: #### 2 4323-8 ####JANETH Galo ([id number])[facility] ([facility])[address] [place] [address] ALP [Catalytic activity/Vol] 129 U/L High 33-110 [facility] Comment on above: Performed By: #### 2 4323-8 ####JANETH Galo ([id number])[facility])[address] [place] [address] ALT With P-5'-P [Catalytic activity/Vol] 19 U/L Normal 7-45 [facility] Comment on above: Result Comment: Tomasa ents treated with Sulfasalazine may generate falsely decreased results for ALT. Performed By: #### 2 4323-8 ####JANETH Galo ([id number])[facility])[address] [place] [address] Anion gap [Moles/Vol] 12 mmol/L Normal 10-20 [facility] Comment on above: Performed By: #### 2 4323-8 ####JANETH Galo ([id number])[facility])[address] [place] [address] AST With P-5'-P [Catalytic activity/Vol] 18 U/L Normal 9-39 [facility] Comment on above: Performed By: #### 2 4323-8 ####JANETH Galo ([id number])[facility])[address] [place] [address] Bilirubin [Mass/Vol] 0.3 mg/dL Normal 0.0-1.2 [facility] Comment on above: Performed By: #### 2 4323-8 ####JANETH Galo ([id number])[facility])[address] [place] [address] Calcium [Mass/Vol] 8.9 mg/dL Normal 8.6-10.6 [facility] Comment on above: Performed By: #### 2 4323-8 ####JANETH Galo ([id number])[facility])[address] [place] [address] Chloride [Moles/Vol] 104 mmol/L Normal 98-107 [facility] Comment on above: Performed By: #### 2 4323-8 ####JANETH Galo ([id number])[facility])[address] [place] [address] CO2 [Moles/Vol] 26 mmol/L Normal 21-32 [facility] Comment on above: Performed By: #### 2 4323-8 ####JANETH Galo ([id number])[facility])[address] [place] [address] Creatinine [Mass/Vol] 0.64 mg/dL Normal 0.50-1.05 [facility] Comment on above: Performed By: #### 2 4323-8 ####JANETH Galo ([id number])[facility])[address] [place] [address] GFR/1.73 sq M.predicted MDRD (S/P/Bld) [Vol rate/Area] mL/min/{1.73_m2} Normal >60 [facility] Comment on above: Result Comment: Calc ulations of estimated GFR are performed using the 2020 CKD-EPI Study Refit equation without the race variable for the IDMS-Traceable creatinine methods.https://jasn.asnjournals.org/content/early/ N.5111869140 Performed By: #### 2 4323-8 ####JANETH Galo ([id number])[facility])[address] [place] [address] Glucose [Mass/Vol] 101 mg/dL High 74-99 [facility] Comment on above: Performed By: #### 2 4323-8 ####JANETH Galo ([id number])[facility])[address] [place] [address] Potassium [Moles/Vol] 4.7 mmol/L Normal 3.5-5.3 [facility] Comment on above: Performed By: #### 2 4323-8 ####JANETH Galo ([id number])[facility])[address] [place] [address] Protein [Mass/Vol] 6.9 g/dL Normal 6.4-8.2 [facility] Comment on above: Performed By: #### 2 4323-8 ####JANETH Galo ([id number])[facility])[id number] [place] [address] Sodium [Moles/Vol] 137 mmol/L Normal 136-145 [facility] Comment on above: Performed By: #### 2 4323-8 ####JANETH Galo ([id number])[facility])[address] [place] [address] 11692 Urea nitrogen [Mass/Vol] 15 mg/dL Normal 6-23 [facility] Comment on above: Performed By: #### 2 4323-8 ####JANETH Galo ([id number])[facility] ([facility])[address] [place] [address]10 ESR Westergren method (Bld) [Velocity]on 03-28-2024 ESR (Bld) [Velocity] 41 mm/h High 0 - 30 mm/h Uni [facility] Interpretation and review of laboratory results Abnormal [facility] ESR (Bld) [Velocity] 41 mm/h High 0-30 [facility] Comment on above: Performed By: #### 4 537-7 ####JANETH Galo ([id number])[facility] ([facility])[address] [place], [place] [address] No Panel Informationon 03-28 Blood Expiration Date 04/22/2024 11:59:00 PM EST [facility] Dispense Status RE [facility] Dispense Status TR [facility] PRODUCT BLOOD TYPE 6200 [facility] PRODUCT CODE [id number] [facility] Unit ABO A [facility] Unit RH Positive [facility] UNIT VOLUME 350 [facility] XM INTEP COMP [facility] Interpretation and review of laboratory results Abnormal [facility] Prepare RBC: 4 Unitson 03-28 Blood Expiration Date 04/24/2024 11:59:00 PM EST [facility] Blood Expiration Date 04/25/2024 11:59:00 PM EDT [facility] Unit Number [id number] [facility] Unit Number [id number] [facility] Unit Number [id number] [facility] Unit Number [id number] [facility] Basic metabolic 2000 panelon 03-27-2024 Anion gap [Moles/Vol] 12 mmol/L 10 - 2 0 mmol/L [facility] Calcium [Mass/Vol] 6.6 mg/dL Low 8.6 - 10. 6 mg/dL [facility] Chloride [Moles/Vol] 103 mmol/L 98 - 10 7 mmol/L [facility] CO2 [Moles/Vol] 27 mmol/L 21 - 32 mmol/L [facility] Creatinine [Mass/Vol] 0.74 mg/dL 0.50 - 1.05 mg/dL [facility] eGFR - PINF [facility] Comment on above: Calculations of [facility] GFR are performed using the 2020 CKD-EPI Study Refit equation without the race variable for the IDMS-Traceable creatinine methods. https://jasn.asnjournals.org/content//ASN.385195 2611 Glucose [Mass/Vol] 144 mg/dL High 74 - 99 mg/dL [facility] Interpretation and review of laboratory results Abnormal [facility] Potassium [Moles/Vol] 6.1 mmol/L Critically high 3.5 - 5.3 mmol/L [facility] Sodium [Moles/Vol] 136 mmol/L 136 - 145 mmol/L [facility] Urea nitrogen [Mass/Vol] 15 mg/dL 6 - 23 mg/dL [facility] Anion gap [Moles/Vol] 12 mmol/L Normal 10-20 [facility] Comment on above: Performed By: #### 2 4321-2 ####JANETH Galo ([id number])[facility])[address] [place] [address] Calcium [Mass/Vol] 6.6 mg/dL Low 8.6-10.6 [facility] Comment on above: Performed By: #### 2 4321-2 ####JANETH GRAFF L ([id number])[facility])[address] [place] [address] Chloride [Moles/Vol] 103 mmol/L Normal 98-107 [facility] Comment on above: Performed By: #### 2 4321-2 ####JANETH Galo ([id number])[facility])[address] [place] [address] CO2 [Moles/Vol] 27 mmol/L Normal 21-32 [facility] Comment on above: Performed By: #### 2 4321-2 ####JANETH Galo (91719)[facility])[address] [place] [address] Creatinine [Mass/Vol] 0.74 mg/dL Normal 0.50-1.05 [facility] Comment on above: Performed By: #### 2 4321-2 ####JANETH Galo ([id number])[facility])[address] [place] [address] GFR/1.73 sq M.predicted MDRD (S/P/Bld) [Vol rate/Area] mL/min/{1.73_m2} Normal >60 [facility] Comment on above: Result Comment: Calc ulations of estimated GFR are performed using the 2020 CKD-EPI Study Refit equation without the race variable for the IDMS-Traceable creatinine methods.https://jasn.asnjournals.org/content/early/ N.3574517211 Performed By: #### 2 4321-2 ####JANETH Galo ([id number])[facility])[address] [place] [address] Glucose [Mass/Vol] 144 mg/dL High 74-99 [facility] Comment on above: Performed By: #### 2 4321-2 ####JANETH GRAFF L (19903)[facility])[address] [place] [address] Potassium [Moles/Vol] 6.1 mmol/L Critically high 3.5-5.3 [facility] Comment on above: Performed By: #### 2 4321-2 ####JANETH Galo (21020)[facility])[address] [place] [address] Sodium [Moles/Vol] 136 mmol/L Normal 136-145 [facility] Comment on above: Performed By: #### 2 4321-2 ####JANETH Galo ([id number])[facility])[address] [place] [address] Urea nitrogen [Mass/Vol] 15 mg/dL Normal 6-23 [facility] Comment on above: Performed By: #### 2 4321-2 ####JANETH GRAFF L (52905)[facility])[address] [place] [address] Anion gap [Moles/Vol] 12 mmol/L 10 - 2 0 mmol/L [facility] Calcium [Mass/Vol] 8.5 mg/dL Low 8.6 - 10. 6 mg/dL [facility] Chloride [Moles/Vol] 104 mmol/L 98 - 10 7 mmol/L [facility] CO2 [Moles/Vol] 26 mmol/L 21 - 32 mmol/L [facility] Creatinine [Mass/Vol] 0.76 mg/dL 0.50 - 1.05 mg/dL [facility] eGFR - PINF [facility] Comment on above: Calculations of bill mated GFR are performed using the 2020 CKD-EPI Study Refit equation without the race variable for the IDMS-Traceable creatinine methods. https://jasn.asnjournals.org/content//ASN.089562 0037 Glucose [Mass/Vol] 110 mg/dL High 74 - 99 mg/dL [facility] Interpretation and review of laboratory results Abnormal [facility] Potassium [Moles/Vol] 4.8 mmol/L 3.5 - 5.3 mmol/L [facility] Sodium [Moles/Vol] 137 mmol/L 136 - 145 mmol/L [facility] Urea nitrogen [Mass/Vol] 18 mg/dL 6 - 23 mg/dL [facility] Anion gap [Moles/Vol] 12 mmol/L Normal 10-20 [facility] Comment on above: Performed By: #### 2 4321-2 ####JANETH GRAFF L ([id number])[facility])[address] [place] [address] Calcium [Mass/Vol] 8.5 mg/dL Low 8.6-10.6 [facility] Comment on above: Performed By: #### 2 4321-2 ####JANETH GRAFF L (49280)[facility])[address] [place] [address] Chloride [Moles/Vol] 104 mmol/L Normal 98-107 [facility] Comment on above: Performed By: #### 2 4321-2 ####JANETH GRAFF L (53922)[facility])[address] [place] [address] CO2 [Moles/Vol] 26 mmol/L Normal 21-32 [facility] Comment on above: Performed By: #### 2 4321-2 ####JANETH GRAFF L (94660)[facility])[address] [place] [address] Creatinine [Mass/Vol] 0.76 mg/dL Normal 0.50-1.05 [facility] Comment on above: Performed By: #### 2 4321-2 ####JANETH GRAFF L (23767)[facility])[address] [place] [address] GFR/1.73 sq M.predicted MDRD (S/P/Bld) [Vol rate/Area] mL/min/{1.73_m2} Normal >60 [facility] Comment on above: Result Comment: Calc ulations of estimated GFR are performed using the 2020 CKD-EPI Study Refit equation without the race variable for the IDMS-Traceable creatinine methods.https://jasn.asnjournals.org/content/early// N.5158844525 Performed By: #### 2 4321-2 ####JANETH MCDONALDTZER L (68032)[facility])[address] [place] [address] Glucose [Mass/Vol] 110 mg/dL High 74-99 [facility] Comment on above: Performed By: #### 2 4321-2 ####JANETH SCHMOTZER L (70034)[facility])[address] [place] [address] Potassium [Moles/Vol] 4.8 mmol/L Normal 3.5-5.3 [facility] Comment on above: Performed By: #### 2 4321-2 ####JANETH SCHMOTZER L (69848)[facility])[address] [place] [address] Sodium [Moles/Vol] 137 mmol/L Normal 136-145 [facility] Comment on above: Performed By: #### 2 4321-2 ####JANETH SCHMOTZER L (43569)[facility])[address] [place] [address] Urea nitrogen [Mass/Vol] 18 mg/dL Normal 6-23 [facility] Comment on above: Performed By: #### 2 4321-2 ####JANETH SCHMOTZER L (65009)[facility])[address] [place] [address] C reactive proteinon 025 CRP [Mass/Vol] 21.74 mg/dL High <1.00 [facility] Comment on above: Performed By: #### 1 988-5 ####JANETH Galo ([id number])[facility])[address] [place] [address] C-reactive proteinon 025 CRP [Mass/Vol] 21.74 mg/dL High NINF - 1.00 mg/dL [facility] CBC panel Auto (Bld)on 03-27 Erythrocyte distribution width (RBC) [Ratio] 17.2 % High 11.5 - 14.5 % [facility] Hematocrit (Bld) [Volume fraction] 28.4 % Low 36.0 - 46.0 % [facility] Hemoglobin (Bld) [Mass/Vol] 8.3 g/dL Low 12.0 - 16.0 g/dL [facility] Interpretation and review of laboratory results Abnormal [facility] MCH (RBC) [Entitic mass] 26.7 pg 26.0 - 34.0 pg [facility] MCHC (RBC) [Mass/Vol] 29.2 g/dL Low 32.0 - 36.0 g/dL [facility] MCV (RBC) [Entitic vol] 91 fL 80 - 100 fL [facility] Nucleated RBC/100 WBC (Bld) [Ratio] 8.4 % High [facility] Platelets (Bld) [#/Vol] 372 10*3/uL [facility] RBC (Bld) [#/Vol] 3.11 10*6/uL Low [facility] WBC (Bld) [#/Vol] 18.2 10*3/uL High [facility] Erythrocyte distribution width (RBC) [Ratio] 17.2 % High 11.5-14.5 [facility] Comment on above: Performed By: #### 5 8410-2 ####JANETH Galo ([id number])[facility])[address] [place] [address] Hematocrit (Bld) [Volume fraction] 28.4 % Low 36.0-46.0 [facility] Comment on above: Performed By: #### 5 8410-2 ####JANETH Galo (14503)[facility])[address] [place] [address] Hemoglobin (Bld) [Mass/Vol] 8.3 g/dL Low 12.0-16.0 [facility] Comment on above: Performed By: #### 5 8410-2 ####JANETH Galo (82996)[facility])[address] [place] [address] 15827 MCH (RBC) [Entitic mass] 26.7 pg Normal 26.0-34.0 [facility] Comment on above: Performed By: #### 5 8410-2 ####JANETH Galo (95253)[facility])[address] [place] [address] 31277 MCHC (RBC) [Mass/Vol] 29.2 g/dL Low 32.0-36.0 [facility] Comment on above: Performed By: #### 5 8410-2 ####JANETH Galo (59196)[facility])[address] [place] [address]12 MCV (RBC) [Entitic vol] 91 fL Normal 80-100 [facility] Comment on above: Performed By: #### 5 8410-2 ####JANETH Galo ([id number])[facility])[address] [place] [address] 41732 Nucleated RBC/100 WBC (Bld) [Ratio] 8.4 /100 WBCs High 0.0-0.0 [facility] Comment on above: Performed By: #### 5 8410-2 ####JANETH Galo (14462)[facility])[address] [place] [address] 97815 Platelets (Bld) [#/Vol] 372 x10*3/uL Normal 150-450 [facility] Comment on above: Performed By: #### 5 8410-2 ####JANETH Galo ([id number])[facility])[address] [place] [address] RBC (Bld) [#/Vol] 3.11 x10*6/uL Low 4.00-5.20 [facility] Comment on above: Performed By: #### 5 8410-2 ####JANETH Galo ([id number])[facility])[address] [place] [address] WBC (Bld) [#/Vol] 18.2 x10*3/uL High 4.4-11.3 [facility] Comment on above: Performed By: #### 5 8410-2 ####JANETH Galo (59924)[facility])[address] [place] [address] Erythrocyte distribution width (RBC) [Ratio] 17.2 % High 11.5 - 14.5 % [facility] Hematocrit (Bld) [Volume fraction] 28.2 % Low 36.0 - 46.0 % [facility] Hemoglobin (Bld) [Mass/Vol] 8.5 g/dL Low 12.0 - 16.0 g/dL [facility] Interpretation and review of laboratory results Abnormal [facility] MCH (RBC) [Entitic mass] 26.7 pg 26.0 - 34.0 pg [facility] MCHC (RBC) [Mass/Vol] 30.1 g/dL Low 32.0 - 36.0 g/dL [facility] MCV (RBC) [Entitic vol] 89 fL 80 - 100 fL [facility] Nucleated RBC/100 WBC (Bld) [Ratio] 8.5 % High [facility] Platelets (Bld) [#/Vol] 350 10*3/uL [facility] RBC (Bld) [#/Vol] 3.18 10*6/uL Low [facility] WBC (Bld) [#/Vol] 19.2 10*3/uL High [facility] Erythrocyte distribution width (RBC) [Ratio] 17.2 % High 11.5-14.5 [facility] Comment on above: Performed By: #### 5 8410-2 ####JANETH Galo ([id number])[facility])[address] [place] [address] 73242 Hematocrit (Bld) [Volume fraction] 28.2 % Low 36.0-46.0 [facility] Comment on above: Performed By: #### 5 8410-2 ####JANETH Galo ([id number])[facility])[address] [place] [address] 90509 Hemoglobin (Bld) [Mass/Vol] 8.5 g/dL Low 12.0-16.0 [facility] Comment on above: Performed By: #### 5 8410-2 ####JANETH Galo ([id number])[facility])[address] [place] [address] 70706 MCH (RBC) [Entitic mass] 26.7 pg Normal 26.0-34.0 [facility] Comment on above: Performed By: #### 5 8410-2 ####JANETH Galo ([id number])[facility])[address] [place] [address] 87649 MCHC (RBC) [Mass/Vol] 30.1 g/dL Low 32.0-36.0 [facility] [facility] Comment on above: Performed By: #### 5 8410-2 ####JANETH Galo ([id number])[facility] ([facility])[address] [place] [address] 19641 MCV (RBC) [Entitic vol] 89 fL Normal 80-100 [facility] Comment on above: Performed By: #### 5 8410-2 ####JANETH Galo ([id number])[facility] ([facility])[address] [place] [address] 056[address] Nucleated RBC/100 WBC (Bld) [Ratio] 8.5 /100 WBCs High 0.0-0.0 [facility] Comment on above: Performed By: #### 5 8410-2 ####JANETH Galo ([id number])[facility] ([facility])[address] [place] [address] Platelets (Bld) [#/Vol] 350 x10*3/uL Normal 150-450 [facility] Comment on above: Performed By: #### 5 8410-2 ####JANETH Galo ([id number])[facility] ([facility])[address] [place] [address] RBC (Bld) [#/Vol] 3.18 x10*6/uL Low 4.00-5.20 [facility] Comment on above: Performed By: #### 5 8410-2 ####JANETH Galo ([id number])[facility] ([facility])[address] [place] [address] 48817 WBC (Bld) [#/Vol] 19.2 x10*3/uL High 4.4-11.3 [facility] Comment on above: Performed By: #### 5 8410-2 ####JANETH Galo ([id number])[facility] ([facility])[address] [place] [address] 63972 CRP [Mass/Vol]on 03-27-2024 Interpretation and review of laboratory results Abnormal [facility] ESR Westergren method (Bld) [Velocity]on 03-27-2024 ESR (Bld) [Velocity] 48 mm/h High 0 - 30 mm/h [facility] Interpretation and review of laboratory results Abnormal [facility] ESR (Bld) [Velocity] 48 mm/h High 0-30 [facility] Comment on above: Performed By: #### 4 537-7 ####JANETH Galo ([id number])[facility] ([facility])[address] [place] [address]39 Basic metabolic 2000 panelon 03-26-2024 Anion gap [Moles/Vol] 13 mmol/L 10 - 2 0 mmol/L [facility] Calcium [Mass/Vol] 8.1 mg/dL Low 8.6 - 10. 6 mg/dL [facility] Chloride [Moles/Vol] 102 mmol/L 98 - 10 7 mmol/L [facility] CO2 [Moles/Vol] 24 mmol/L 21 - 32 mmol/L [facility] Creatinine [Mass/Vol] 1.06 mg/dL High 0.50 - 1.05 mg/dL [facility] GFR/1.73 sq M.predicted among non-blacks MDRD (S/P/Bld) [Vol rate/Area] 63 mL/min/{1.73_m2} - PINF [facility] Comment on above: Calculations of bill mated GFR are performed using the 2020 CKD-EPI Study Refit equation without the race variable for the IDMS-Traceable creatinine methods. https://jasn.asnjournals.org/content/early//ASN.833850 5828 Glucose [Mass/Vol] 118 mg/dL High 74 - 99 mg/dL [facility] Interpretation and review of laboratory results Abnormal [facility] Potassium [Moles/Vol] 5 mmol/L 3.5 - 5.3 mmol/L [facility] Sodium [Moles/Vol] 134 mmol/L Low 136 - 145 mmol/L [facility] Urea nitrogen [Mass/Vol] 23 mg/dL 6 - 23 mg/dL [facility] Anion gap [Moles/Vol] 13 mmol/L Normal 10-20 [facility] Comment on above: Performed By: #### 2 4321-2 ####JANETH Galo ([id number])[facility] ([facility])[address] [place] [address] Calcium [Mass/Vol] 8.1 mg/dL Low 8.6-10.6 [facility] Comment on above: Performed By: #### 2 4321-2 ####JANETH Galo ([id number])[facility] ([facility])[address] [place] [address] Chloride [Moles/Vol] 102 mmol/L Normal 98-107 [facility] Comment on above: Performed By: #### 2 4321-2 ####JANETH Galo ([id number])[facility] ([facility])[address] [place] [address] CO2 [Moles/Vol] 24 mmol/L Normal 21-32 [facility] Comment on above: Performed By: #### 2 4321-2 ####JANETH GRAFF L ([id number])[facility] ([facility])[address] [place] [address] Creatinine [Mass/Vol] 1.06 mg/dL High 0.50-1.05 [facility] Comment on above: Performed By: #### 2 4321-2 ####JANETH Galo ([id number])[facility] ([facility])[address] [place] [address] Glomerular filtration rate/1.73 sq M.predicted 63 mL/min/1.73m*2 Normal >60 [facility] Comment on above: Result Comment: Calc ulations of estimated GFR are performed using the 2020 CKD-EPI Study Refit equation without the race variable for the IDMS-Traceable creatinine methods.https://jasn.asnjournals.org/content// N.2603424423 Performed By: #### 2 432-2 ####JANETH Galo ([id number])[facility] ([facility])[address] [place] [address] Glucose [Mass/Vol] 118 mg/dL High 74-99 [facility] Comment on above: Performed By: #### 2 4321-2 ####JANETH GRAFF L ([id number])[facility] ([facility])[address] [place] [address] Potassium [Moles/Vol] 5.0 mmol/L Normal 3.5-5.3 [facility] Comment on above: Performed By: #### 2 4321-2 ####JANETH GRAFF L ([id number])[facility] ([facility])[address] [place] [address] Sodium [Moles/Vol] 134 mmol/L Low 136-145 [facility] Comment on above: Performed By: #### 2 4321-2 ####JANETH Galo ([id number])[facility] ([facility])[address] [place] [address] Urea nitrogen [Mass/Vol] 23 mg/dL Normal 6-23 [facility] Comment on above: Performed By: #### 2 4321-2 ####JANETH Galo ([id number])[facility] ([facility])[address] [place] [address] Anion gap [Moles/Vol] 13 mmol/L 10 - 2 0 mmol/L [facility] Calcium [Mass/Vol] 8.7 mg/dL 8.6 - 10. 6 mg/dL [facility] Chloride [Moles/Vol] 101 mmol/L 98 - 10 7 mmol/L [facility] CO2 [Moles/Vol] 24 mmol/L 21 - 32 mmol/L [facility] Creatinine [Mass/Vol] 1.33 mg/dL High 0.50 - 1.05 mg/dL [facility] GFR/1.73 sq M.predicted among non-blacks MDRD (S/P/Bld) [Vol rate/Area] 48 mL/min/{1.73_m2} Low - PINF [facility] Comment on above: Calculations of bill mated GFR are performed using the 2020 CKD-EPI Study Refit equation without the race variable for the IDMS-Traceable creatinine methods. https://jasn.asnjournals.org/content//ASN.246661 8449 Glucose [Mass/Vol] 93 mg/dL 74 - 99 mg/dL [facility] Interpretation and review of laboratory results Abnormal [facility] Potassium [Moles/Vol] 4.4 mmol/L 3.5 - 5.3 mmol/L [facility] Sodium [Moles/Vol] 134 mmol/L Low 136 - 145 mmol/L [facility] Urea nitrogen [Mass/Vol] 32 mg/dL High 6 - 23 mg/dL [facility] Anion gap [Moles/Vol] 13 mmol/L Normal 10-20 [facility] Comment on above: Performed By: #### 2 4321-2 ####JANETH RANGELER L ([id number])[facility] ([facility])[address] [place] [address] Calcium [Mass/Vol] 8.7 mg/dL Normal 8.6-10.6 [facility] Comment on above: Performed By: #### 2 4321-2 ####JANETH CONNORMOTZER L ([id number])[facility] ([facility])[address] [place] [address] Chloride [Moles/Vol] 101 mmol/L Normal 98-107 [facility] Comment on above: Performed By: #### 2 4321-2 ####JANETH CONNORMOTZER L ([id number])[facility] ([facility])[address] [place] [address] CO2 [Moles/Vol] 24 mmol/L Normal 21-32 [facility] Comment on above: Performed By: #### 2 4321-2 ####JANETH GRAFF L (21056)[facility] ([facility])[address] [place] [address] Creatinine [Mass/Vol] 1.33 mg/dL High 0.50-1.05 [facility] Comment on above: Performed By: #### 2 4321-2 ####JANETH CONNORMOTZER L ([id number])[facility] ([facility])[address] [place] [address] Glomerular filtration rate/1.73 sq M.predicted 48 mL/min/1.73m*2 Low >60 [facility] Comment on above: Result Comment: Calc ulations of estimated GFR are performed using the 2020 CKD-EPI Study Refit equation without the race variable for the IDMS-Traceable creatinine methods.https://jasn.asnjournals.org/content/early/ N.5568355055 Performed By: #### 2 4321-2 ####JANETH Galo ([id number])[facility] ([facility])[address] [place] [address] Glucose [Mass/Vol] 93 mg/dL Normal 74-99 [facility] Comment on above: Performed By: #### 2 4321-2 ####JANETH Galo ([id number])[facility] ([facility])[address] [place] [address] Potassium [Moles/Vol] 4.4 mmol/L Normal 3.5-5.3 [facility] Comment on above: Performed By: #### 2 4321-2 ####JANETH Galo ([id number])[facility] ([facility])[address] [place] [address] Sodium [Moles/Vol] 134 mmol/L Low 136-145 [facility] Comment on above: Performed By: #### 2 4321-2 ####JANETH Galo ([id number])[facility] ([facility])[address] [place] [address] Urea nitrogen [Mass/Vol] 32 mg/dL High 6-23 [facility] Comment on above: Performed By: #### 2 4321-2 ####JANETH Galo ([id number])[facility] ([facility])[address] [place] [address] C reactive proteinon 025 CRP [Mass/Vol] 20.33 mg/dL High <1.00 [facility] Comment on above: Performed By: #### 1 988-5 ####JANETH Galo ([id number])[facility] ([facility])[address] [place] [address] C-reactive proteinon 025 CRP [Mass/Vol] 20.33 mg/dL High NINF - 1.00 mg/dL [facility] CBC panel Auto (Bld)on 03-26 Erythrocyte distribution width (RBC) [Ratio] 16.7 % High 11.5 - 14.5 % [facility] Hematocrit (Bld) [Volume fraction] 28.4 % Low 36.0 - 46.0 % [facility] Hemoglobin (Bld) [Mass/Vol] 8.8 g/dL Low 12.0 - 16.0 g/dL [facility] Interpretation and review of laboratory results Abnormal [facility] MCH (RBC) [Entitic mass] 27.1 pg 26.0 - 34.0 pg [facility] MCHC (RBC) [Mass/Vol] 31 g/dL Low 32.0 - 36.0 g/dL [facility] MCV (RBC) [Entitic vol] 87 fL 80 - 100 fL [facility] Nucleated RBC/100 WBC (Bld) [Ratio] 8.4 % High [facility] Platelets (Bld) [#/Vol] 315 10*3/uL [facility] RBC (Bld) [#/Vol] 3.25 10*6/uL Low [facility] WBC (Bld) [#/Vol] 19.6 10*3/uL High [facility] Erythrocyte distribution width (RBC) [Ratio] 16.7 % High 11.5-14.5 [facility] Comment on above: Performed By: #### 5 8410-2 ####JANETH Galo ([id number])[facility] ([facility])[address] [place] [address] Hematocrit (Bld) [Volume fraction] 28.4 % Low 36.0-46.0 [facility] Comment on above: Performed By: #### 5 8410-2 ####JANETH Galo ([id number])[facility] ([facility])[address] [place] [address] Hemoglobin (Bld) [Mass/Vol] 8.8 g/dL Low 12.0-16.0 [facility] Comment on above: Performed By: #### 5 8410-2 ####JANETH Galo ([id number])[facility] ([facility])[address] [place] [address] MCH (RBC) [Entitic mass] 27.1 pg Normal 26.0-34.0 [facility] Comment on above: Performed By: #### 5 8410-2 ####JANETH Galo ([id number])[facility] ([facility])[address] [place] [address] MCHC (RBC) [Mass/Vol] 31.0 g/dL Low 32.0-36.0 [facility] Comment on above: Performed By: #### 5 8410-2 ####JANETH Galo ([id number])[facility] ([facility])[address] [place] [address] MCV (RBC) [Entitic vol] 87 fL Normal 80-100 [facility] Comment on above: Performed By: #### 5 8410-2 ####JANETH Galo ([id number])[facility] ([facility])[address] [place] [address] Nucleated RBC/100 WBC (Bld) [Ratio] 8.4 /100 WBCs High 0.0-0.0 [facility] Comment on above: Performed By: #### 5 8410-2 ####JANETH Galo ([id number])[facility] ([facility])[address] [place] [address] Platelets (Bld) [#/Vol] 315 x10*3/uL Normal 150-450 [facility] Comment on above: Performed By: #### 5 8410-2 ####JANETH Galo ([id number])[facility] ([facility])[address] [place] [address] RBC (Bld) [#/Vol] 3.25 x10*6/uL Low 4.00-5.20 [facility] Comment on above: Performed By: #### 5 8410-2 ####JANETH Galo (17501)[facility] ([facility])[address] [place] [address] WBC (Bld) [#/Vol] 19.6 x10*3/uL High 4.4-11.3 [facility] Comment on above: Performed By: #### 5 8410-2 ####JANETH Galo ([id number])[facility] ([facility])[address] [place] [address] Erythrocyte distribution width (RBC) [Ratio] 16.3 % High 11.5 - 14.5 % [facility] Hematocrit (Bld) [Volume fraction] 29.6 % Low 36.0 - 46.0 % [facility] Hemoglobin (Bld) [Mass/Vol] 8.9 g/dL Low 12.0 - 16.0 g/dL [facility] Interpretation and review of laboratory results Abnormal [facility] MCH (RBC) [Entitic mass] 26.9 pg 26.0 - 34.0 pg [facility] MCHC (RBC) [Mass/Vol] 30.1 g/dL Low 32.0 - 36.0 g/dL [facility] MCV (RBC) [Entitic vol] 89 fL 80 - 100 fL [facility] Nucleated RBC/100 WBC (Bld) [Ratio] 5.7 % High [facility] Platelets (Bld) [#/Vol] 307 10*3/uL [facility] RBC (Bld) [#/Vol] 3.31 10*6/uL Low [facility] WBC (Bld) [#/Vol] 20.1 10*3/uL [facility] Erythrocyte distribution width (RBC) [Ratio] 16.3 % High 11.5-14.5 [facility] Comment on above: Performed By: #### 5 8410-2 ####JANETH Galo ([id number])[facility] ([facility])[address] [place] [address] Hematocrit (Bld) [Volume fraction] 29.6 % Low 36.0-46.0 [facility] Comment on above: Performed By: #### 5 8410-2 ####JANETH Galo (05596)[facility] ([facility])[address] [place] [address] Hemoglobin (Bld) [Mass/Vol] 8.9 g/dL Low 12.0-16.0 [facility] Comment on above: Performed By: #### 5 8410-2 ####JANETH Galo ([id number])[facility] ([facility])[address] [place] [address] MCH (RBC) [Entitic mass] 26.9 pg Normal 26.0-34.0 [facility] Comment on above: Performed By: #### 5 8410-2 ####JANETH Galo ([id number])[facility] ([facility])[address] [place] [address] MCHC (RBC) [Mass/Vol] 30.1 g/dL Low 32.0-36.0 [facility] Comment on above: Performed By: #### 5 8410-2 ####JANETH Galo ([id number])[facility] ([facility])[address] [place] [address] MCV (RBC) [Entitic vol] 89 fL Normal 80-100 [facility] Comment on above: Performed By: #### 5 8410-2 ####JANETH Galo ([id number])[facility] ([facility])[address] [place] [address] Nucleated RBC/100 WBC (Bld) [Ratio] 5.7 /100 WBCs High 0.0-0.0 [facility] Comment on above: Performed By: #### 5 8410-2 ####JANETH Galo ([id number])[facility] ([facility])[address] [place] [address] Platelets (Bld) [#/Vol] 307 x10*3/uL Normal 150-450 [facility] Comment on above: Performed By: #### 5 8410-2 ####JANETH Galo ([id number])[facility] ([facility])[address] [place] [address] RBC (Bld) [#/Vol] 3.31 x10*6/uL Low 4.00-5.20 [facility] Comment on above: Performed By: #### 5 8410-2 ####JANETH HARRYSARITA L ([id number])[facility] ([facility])[address] [place] [address] WBC (Bld) [#/Vol] 20.1 x10*3/uL High 4.4-11.3 [facility] Comment on above: Performed By: #### 5 8410-2 ####JANETH HARRYPIEDADER L ([id number])[facility] ([facility])[address] [place] [address] CRP [Mass/Vol]on 03-26-2024 Interpretation and review of laboratory results Abnormal [facility] XR Chest Single viewon 03-26 1. No evidence of pneumothorax status post left subclavian approach central venous catheter placement. I personally reviewed the images/study and I agree with the findings as stated by Nereyda Das MD, PGY-2 this study was interpreted at [place], [place]. MACRO: None Signed by: Osmel Viera 03/26/2024 10:42 AM Dictation workstation: [id number] MMODAL Interpreted By: Osmel Viera and Dulla Kireeti STUDY: XR CHEST 1 VIEW; 03/25/2024 8:22 pm INDICATION: Signs/Symptoms:s/p Left SC CVP line placement; SLP TEACHER can call when patient arrives. COMPARISON: Chest x-ray from 03/11/24 ACCESSION NUMBER(S): [id number] ORDERING CLINICIAN: CLARK WALTERS FINDINGS: AP radiograph of the chest was provided. Interval placement of left subclavian approach central venous catheter terminates at the lower SVC. CARDIOMEDIASTINAL SILHOUETTE: Cardiomediastinal silhouette is normal in size and configuration. LUNGS: No evidence of pneumothorax status post central line placement. There is no pleural effusion. No consolidation. ABDOMEN: No remarkable upper abdominal findings. BONES: No acute osseous changes. MMODAL Osmel Viera MD PhD - 03/26/2024 Interpreted By: Osmel Viera and Dulla Kireeti STUDY: XR CHEST 1 VIEW; 03/25/2024 8:22 pm INDICATION: Signs/Symptoms:s/p Left SC CVP line placement; SLP TEACHER can call when patient arrives. COMPARISON: Chest x-ray from 03/11/24 ACCESSION NUMBER(S): [id number] ORDERING CLINICIAN: CLARK WALTERS FINDINGS: AP radiograph of the chest was provided. Interval placement of left subclavian approach central venous catheter terminates at the lower SVC. CARDIOMEDIASTINAL SILHOUETTE: Cardiomediastinal silhouette is normal in size and configuration. LUNGS: No evidence of pneumothorax status post central line placement. There is no pleural effusion. No consolidation. ABDOMEN: No remarkable upper abdominal findings. BONES: No acute osseous changes. IMPRESSION: 1. No evidence of pneumothorax status post left subclavian approach central venous catheter placement. I personally reviewed the images/study and I agree with the findings as stated by Nereyda Das MD, PGY-2 this study was interpreted at [facility], [place], [place]. MACRO: None Signed by: Osmel Viera 03/26/2024 10:42 AM Dictation workstation: [id number] [facility] Work Phone: XR Chest Single viewOrdered By: Osmel Viera on 03-26-2024 [facility] Work Phone: Bacteria identifiedon 2024 Bacteria identified Cx Nom (Unsp spec) Abnormal [facility] Comment on above: Performed By: #### 6 463-4 ####JANETH Galo ([id number])[facility] ([facility])[address] [place] [address] Basic metabolic 2000 panelon 03-25-2024 Anion gap [Moles/Vol] 13 mmol/L 10 - 2 0 mmol/L [facility] Calcium [Mass/Vol] 8.7 mg/dL 8.6 - 10. 6 mg/dL [facility] Chloride [Moles/Vol] 103 mmol/L 98 - 10 7 mmol/L [facility] CO2 [Moles/Vol] 24 mmol/L 21 - 32 mmol/L [facility] Creatinine [Mass/Vol] 1.62 mg/dL High 0.50 - 1.05 mg/dL [facility] GFR/1.73 sq M.predicted among non-blacks MDRD (S/P/Bld) [Vol rate/Area] 38 mL/min/{1.73_m2} Low - PINF [facility] Comment on above: Calculations of bill mated GFR are performed using the 2020 CKD-EPI Study Refit equation without the race variable for the IDMS-Traceable creatinine methods. https://jasn.asnjournals.org/content//ASN.519774 4844 Glucose [Mass/Vol] 106 mg/dL High 74 - 99 mg/dL [facility] Potassium [Moles/Vol] 5.2 mmol/L 3.5 - 5.3 mmol/L [facility] Sodium [Moles/Vol] 135 mmol/L Low 136 - 145 mmol/L [facility] Urea nitrogen [Mass/Vol] 34 mg/dL High 6 - 23 mg/dL [facility] Anion gap [Moles/Vol] 13 mmol/L Normal 10-20 [facility] Comment on above: Performed By: #### 2 4321-2 ####JANETH Galo ([id number])[facility] ([facility])[address] [place] [address] Calcium [Mass/Vol] 8.7 mg/dL Normal 8.6-10.6 [facility] Comment on above: Performed By: #### 2 4321-2 ####JANETH Galo ([id number])[facility] ([facility])[address] [place] [address] Chloride [Moles/Vol] 103 mmol/L Normal 98-107 [facility] Comment on above: Performed By: #### 2 4321-2 ####JANETH GRAFF L (82401)[facility] ([facility])[address] [place] [address] CO2 [Moles/Vol] 24 mmol/L Normal 21-32 [facility] Comment on above: Performed By: #### 2 4321-2 ####JANETH Galo (49976)[facility] ([facility])[address] [place] [address] Creatinine [Mass/Vol] 1.62 mg/dL High 0.50-1.05 [facility] Comment on above: Performed By: #### 2 4321-2 ####JANETH Galo ([id number])[facility] ([facility])[address] [place] [address] Glomerular filtration rate/1.73 sq M.predicted 38 mL/min/1.73m*2 Low >60 [facility] Comment on above: Result Comment: Calc ulations of estimated GFR are performed using the 2020 CKD-EPI Study Refit equation without the race variable for the IDMS-Traceable creatinine methods.https://jasn.asnjournals.org/content/early/ N.5857843017 Performed By: #### 2 4321-2 ####JANETH Galo ([id number])[facility] ([facility])[address] [place] [address] Glucose [Mass/Vol] 106 mg/dL High 74-99 [facility] Comment on above: Performed By: #### 2 4321-2 ####JANETH Galo ([id number])[facility] ([facility])[address] [place] [address] Potassium [Moles/Vol] 5.2 mmol/L Normal 3.5-5.3 [facility] Comment on above: Performed By: #### 2 4321-2 ####JANETH Galo ([id number])[facility] ([facility])[address] [place] [address] Sodium [Moles/Vol] 135 mmol/L Low 136-145 [facility] Comment on above: Performed By: #### 2 4321-2 ####JANETH Galo ([id number])[facility] ([facility])[address] [place] [address] Urea nitrogen [Mass/Vol] 34 mg/dL High 6-23 [facility] Comment on above: Performed By: #### 2 4321-2 ####JANETH Galo ([id number])[facility] ([facility])[address] [place] [address] Blood type and Indirect anti body screen panel (Bld)on 03-25-2024 ABO group Nom (Bld) A [facility] Blood group antibody screen Ql Negative [facility] D Ag Ql (Bld) Positive [facility] ABO group Nom (Bld) A Normal [facility] Comment on above: Performed By: #### 3 4532-2 ####JANETH Galo ([id number])[facility] ([facility])[address] [place] [address] Blood group antibody screen Ql Negative [facility] Comment on above: Performed By: #### 3 4532-2 ####JANETH Galo ([id number])[facility] ([facility])[address] [place], [place] [address] D Ag Ql (Bld) Positive [facility] Comment on above: Performed By: #### 3 4532-2 ####JANETH Galo ([id number])[facility] ([facility])[address] [place], [place] [address] CBC panel Auto (Bld)on 03-25 Erythrocyte distribution width (RBC) [Ratio] 15.8 % High 11.5 - 14.5 % [facility] Hematocrit (Bld) [Volume fraction] 25.9 % Low 36.0 - 46.0 % [facility] Hemoglobin (Bld) [Mass/Vol] 8.4 g/dL Low 12.0 - 16.0 g/dL [facility] Interpretation and review of laboratory results Abnormal [facility] MCH (RBC) [Entitic mass] 26.7 pg 26.0 - 34.0 pg [facility] MCHC (RBC) [Mass/Vol] 32.4 g/dL 32.0 - 36.0 g/dL [facility] MCV (RBC) [Entitic vol] 82 fL 80 - 100 fL [facility] Nucleated RBC/100 WBC (Bld) [Ratio] 4.6 % High [facility] Platelets (Bld) [#/Vol] 339 10*3/uL [facility] RBC (Bld) [#/Vol] 3.15 10*6/uL Low [facility] WBC (Bld) [#/Vol] 21.8 10*3/uL High [facility] Erythrocyte distribution width (RBC) [Ratio] 15.8 % High 11.5-14.5 [facility] Comment on above: Performed By: #### 5 8410-2 ####JANETH Galo ([id number])[facility] ([facility])[address] [place] [address] Hematocrit (Bld) [Volume fraction] 25.9 % Low 36.0-46.0 [facility] Comment on above: Performed By: #### 5 8410-2 ####JANETH Galo ([id number])[facility] ([facility])[address] [place] [address] 98817 Hemoglobin (Bld) [Mass/Vol] 8.4 g/dL Low 12.0-16.0 [facility] Comment on above: Performed By: #### 5 8410-2 ####JANETH Galo ([id number])[facility] ([facility])[address] [place] [address] 19717 MCH (RBC) [Entitic mass] 26.7 pg Normal 26.0-34.0 [facility] Comment on above: Performed By: #### 5 8410-2 ####JANETH Galo ([id number])[facility] ([facility])[id number] [place] [address] 63476 MCHC (RBC) [Mass/Vol] 32.4 g/dL Normal 32.0-36.0 [facility] Comment on above: Performed By: #### 5 8410-2 ####JANETH Galo ([id number])[facility] ([facility])[address]65 [place] [address] MCV (RBC) [Entitic vol] 82 fL Normal 80-100 [facility] Comment on above: Performed By: #### 5 8410-2 ####JANETH Galo ([id number])[facility] ([facility])[address] [place] [address] Nucleated RBC/100 WBC (Bld) [Ratio] 4.6 /100 WBCs High 0.0-0.0 [facility] Comment on above: Performed By: #### 5 8410-2 ####JAENTH Galo ([id number])[facility] ([facility])[address] [place] [address] Platelets (Bld) [#/Vol] 339 x10*3/uL Normal 150-450 [facility] Comment on above: Performed By: #### 5 8410-2 ####JANETH Galo ([id number])[facility] ([facility])[address] [place] [address] RBC (Bld) [#/Vol] 3.15 x10*6/uL Low 4.00-5.20 [facility] Comment on above: Performed By: #### 5 8410-2 ####JANETH Galo ([id number])[facility] ([facility])[address] [place] [address] WBC (Bld) [#/Vol] 21.8 x10*3/uL High 4.4-11.3 [facility] Comment on above: Performed By: #### 5 8410-2 ####JANETH Galo ([id number])[facility] ([facility])[address] [place] [address] Erythrocyte distribution width (RBC) [Ratio] 16.3 % High 11.5 - 14.5 % [facility] Hematocrit (Bld) [Volume fraction] 20.6 % Low 36.0 - 46.0 % [facility] Hemoglobin (Bld) [Mass/Vol] 6.3 g/dL Critically low 12.0 - 16.0 g/dL [facility] Interpretation and review of laboratory results Abnormal [facility] MCH (RBC) [Entitic mass] 25.7 pg Low 26.0 - 34.0 pg [facility] MCHC (RBC) [Mass/Vol] 30.6 g/dL Low 32.0 - 36.0 g/dL [facility] MCV (RBC) [Entitic vol] 84 fL 80 - 100 fL [facility] Nucleated RBC/100 WBC (Bld) [Ratio] 6.1 % High [facility] Platelets (Bld) [#/Vol] 387 10*3/uL [facility] RBC (Bld) [#/Vol] 2.45 10*6/uL Low [facility] WBC (Bld) [#/Vol] 18.4 10*3/uL High [facility] [place]rythrocyte distribution width (RBC) [Ratio] 16.3 % High 11.5-14.5 [facility] Comment on above: Performed By: #### 5 8410-2 ####JANETH Galo ([id number])[facility] ([facility])[address] [place] [address] 91023 Hematocrit (Bld) [Volume fraction] 20.6 % Low 36.0-46.0 [facility] Comment on above: Performed By: #### 5 8410-2 ####JANETH Galo ([id number])[facility] ([facility])[address] [place] [address] Hemoglobin (Bld) [Mass/Vol] 6.3 g/dL Critically low 12.0-16.0 [facility] Comment on above: Performed By: #### 5 8410-2 ####JANETH Galo ([id number])[facility] ([facility])[address] [place] [address] MCH (RBC) [Entitic mass] 25.7 pg Low 26.0-34.0 [facility] Comment on above: Performed By: #### 5 8410-2 ####JANETH Galo ([id number])[facility] ([facility])[address] [place] [address] MCHC (RBC) [Mass/Vol] 30.6 g/dL Low 32.0-36.0 [facility] Comment on above: Performed By: #### 5 8410-2 ####JANETH Galo ([id number])[facility] ([facility])[address] [place] [address] MCV (RBC) [Entitic vol] 84 fL Normal 80-100 [facility] Comment on above: Performed By: #### 5 8410-2 ####JANETH Galo ([id number])[facility])[address] [place] [address] Nucleated RBC/100 WBC (Bld) [Ratio] 6.1 /100 WBCs High 0.0-0.0 [facility] Comment on above: Performed By: #### 5 8410-2 ####JANETH Galo ([id number])[facility] ([facility])[address] [place] [address] Platelets (Bld) [#/Vol] 387 x10*3/uL Normal 150-450 [facility] Comment on above: Performed By: #### 5 8410-2 ####JANETH Galo ([id number])[facility] ([facility])[address] [place] [address] RBC (Bld) [#/Vol] 2.45 x10*6/uL Low 4.00-5.20 [facility] Comment on above: Performed By: #### 5 8410-2 ####JANETH Galo ([id number])[facility])[address] [place] [address] WBC (Bld) [#/Vol] 18.4 x10*3/uL High 4.4-11.3 [facility] Comment on above: Performed By: #### 5 8410-2 ####JANETH Galo ([id number])[facility] ([facility])[address] [place] [address] Fungus identifiedon 03-25-19 25 Fungus identified Cx Nom (Unsp spec) Normal [facility] Comment on above: Performed By: #### 5 80-1 ####JANETH Galo ([id number])[facility] ([facility])[id number] [place] [address] Gas and Carbon monoxide and Electrolytes panel (BldA)on 03-25-2024 Anion gap 4 (BldA) [Moles/Vol] 9 Low [facility] Base excess Calc (Bld) [Moles/Vol] -4.5000 mmol/L Low -2.0 - 3.0 mmol/L [facility] Calcium.ionized (BldA) [Moles/Vol] 1.09 mmol/L Low 1.10 - 1.33 mmol/L [facility] Chloride (BldA) [Moles/Vol] 111 mmol/L High 98 - 107 mmol/L [facility] CO2 (Bld) [Partial pressure] 40 mm[Hg] [facility] Glucose [Mass/Vol] 91 mg/dL 74 - 99 mg/dL [facility] HCO3 (Bld) [Moles/Vol] 21.1 mmol/L Low 22.0 - 26.0 mmol/L [facility] Hematocrit Est (Bld) [Volume fraction] 22 % Low 36.0 - 46.0 % [facility] Hemoglobin (Bld) [Mass/Vol] 7.3 g/dL Low 12.0 - 16.0 g/dL [facility] Interpretation and review of laboratory results Abnormal [facility] Lactate (BldA) [Moles/Vol] 0.7 mmol/L 0.4 - 2.0 mmol/L [facility] Oxygen (Bld) [Partial pressure] 89 mm[Hg] [facility] Oxyhemoglobin (BldA) [Mass fraction] 95.8 % 94.0 - 98.0 % [facility] pH (Bld) 7.33 [pH] Low 7.38 - 7.42 pH [facility] Potassium (BldA) [Moles/Vol] 4.9 mmol/L 3.5 - 5.3 mmol/L [facility] Sodium (BldA) [Moles/Vol] 136 mmol/L 136 - 145 mmol/L [facility] Anion gap 4 (BldA) [Moles/Vol] 9 mmo/L Low 10-25 [facility] Comment on above: Performed By: #### 9 3685-6 ####JANETH Galo ([id number])[facility] ([facility])[address]656 [place] [address] Base excess Calc (Bld) [Moles/Vol] -4.5000 mmol/L Low -2.0-3.0 [facility] Comment on above: Performed By: #### 9 3685-6 ####JANETH Galo ([id number])[facility] ([facility])[address] [place] [address] 20079 Calcium.ionized (BldA) [Moles/Vol] 1.09 mmol/L Low 1.10-1.33 [facility] Comment on above: Performed By: #### 9 3685-6 ####JANETH Galo ([id number])[facility] ([facility])[address]60 [place] [address] Chloride (BldA) [Moles/Vol] 111 mmol/L High 98-107 [facility] Comment on above: Performed By: #### 9 3685-6 ####JANETH Galo ([id number])[facility] ([facility])[address]504 [place] [address] CO2 (Bld) [Partial pressure] 40 mm Hg Normal 38-42 [facility] Comment on above: Performed By: #### 9 3685-6 ####JANETH Galo ([id number])[facility])[address] [place] [address] Glucose [Mass/Vol] 91 mg/dL Normal 74-99 [facility] Comment on above: Performed By: #### 9 3685-6 ####JANETH Galo ([id number])[facility] ([facility])[address]561 [place] [address] HCO3 (Bld) [Moles/Vol] 21.1 mmol/L Low 22.0-26.0 [facility] Comment on above: Performed By: #### 9 3685-6 ####JANETH Galo ([id number])[facility] ([facility])[address] [place] [address] 68834 Hematocrit Est (Bld) [Volume fraction] 22.0 % Low 36.0-46.0 [facility] Comment on above: Performed By: #### 9 3685-6 ####JANETH Galo ([id number])[facility] ([facility])[address] [place] [address] 17676 Hemoglobin (Bld) [Mass/Vol] 7.3 g/dL Low 12.0-16.0 [facility] Comment on above: Performed By: #### 9 3685-6 ####JANETH Galo ([id number])[facility] ([facility])[address] [place] [address] 22125 Lactate (BldA) [Moles/Vol] 0.7 mmol/L Normal 0.4-2.0 [facility] Comment on above: Performed By: #### 9 3685-6 ####JANETH Galo ([id number])[facility] ([facility])[address] [place] [address] 71334 Oxygen (Bld) [Partial pressure] 89 mm Hg Normal 85-95 [facility] Comment on above: Performed By: #### 9 3685-6 ####JANEHT Galo ([id number])[facility] ([facility])[address] [place] [address] 21195 Oxyhemoglobin (BldA) [Mass fraction] 95.8 % Normal 94.0-98.0 [facility] Comment on above: Performed By: #### 9 3685-6 ####JANETH Galo ([id number])[facility] ([facility])[address] [place] [address] 79477 pH (Bld) 7.33 [pH] Low 7.38-7.42 [facility] Comment on above: Performed By: #### 9 3685-6 ####JANETH Galo ([id number])[facility] ([facility])[address]17 [place] [address] Potassium (BldA) [Moles/Vol] 4.9 mmol/L Normal 3.5-5.3 [facility] Comment on above: Performed By: #### 9 3685-6 ####JANETH Galo ([id number])[facility] ([facility])[address]45 [place] [address] Sodium (BldA) [Moles/Vol] 136 mmol/L Normal 136-145 [facility] Comment on above: Performed By: #### 9 3685-6 ####JANETH Galo ([id number])[facility] ([facility])[address]653 [place] [address] Anion gap 4 (BldA) [Moles/Vol] 10 [facility] Base excess Calc (Bld) [Moles/Vol] -1.7000 mmol/L -2.0 - 3.0 mmol/L [facility] Calcium.ionized (BldA) [Moles/Vol] 1.12 mmol/L 1.10 - 1.33 mmol/L [facility] Chloride (BldA) [Moles/Vol] 107 mmol/L 98 - 107 mmol/L [facility] CO2 (Bld) [Partial pressure] 37 mm[Hg] Low [facility] Glucose [Mass/Vol] 119 mg/dL High 74 - 99 mg/dL [facility] HCO3 (Bld) [Moles/Vol] 22.9 mmol/L 22.0 - 26.0 mmol/L [facility] Hematocrit Est (Bld) [Volume fraction] 27 % Low 36.0 - 46.0 % [facility] Hemoglobin (Bld) [Mass/Vol] 9 g/dL Low 12.0 - 16.0 g/dL [facility] Inhaled oxygen concentration 42 % [facility] Interpretation and review of laboratory results Abnormal [facility] Lactate (BldA) [Moles/Vol] 1.3 mmol/L 0.4 - 2.0 mmol/L [facility] Oxygen (Bld) [Partial pressure] 83 mm[Hg] Low [facility] Oxyhemoglobin (BldA) [Mass fraction] 94.9 % 94.0 - 98.0 % [facility] pH (Bld) 7.4 [pH] 7.38 - 7.42 pH [facility] Potassium (BldA) [Moles/Vol] 5.7 mmol/L High 3.5 - 5.3 mmol/L [facility] Sodium (BldA) [Moles/Vol] 134 mmol/L Low 136 - 145 mmol/L [facility] Anion gap 4 (BldA) [Moles/Vol] 10 mmo/L Normal 10-25 [facility] Comment on above: Performed By: #### 9 3685-6 ####JANETH Galo ([id number])[facility] ([facility])[id number] [place] [address] 65662 Base excess Calc (Bld) [Moles/Vol] -1.7000 mmol/L Normal -2.0-3.0 [facility] Comment on above: Performed By: #### 9 3685-6 ####JANETH Galo ([id number])[facility] ([facility])[address] [place] [address] 60662 Calcium.ionized (BldA) [Moles/Vol] 1.12 mmol/L Normal 1.10-1.33 [facility] Comment on above: Performed By: #### 9 3685-6 ####JANETH Galo ([id number])[facility] ([facility])[address] [place] [address] 71974 Chloride (BldA) [Moles/Vol] 107 mmol/L Normal 98-107 [facility] Comment on above: Performed By: #### 9 3685-6 ####JANETH Galo ([id number])[facility] ([facility])[id number] [place] [address] 37855 CO2 (Bld) [Partial pressure] 37 mm Hg Low 38-42 [facility] Comment on above: Performed By: #### 9 3685-6 ####JANETH Galo ([id number])[facility] ([facility])[address]195 [place] [address] Glucose [Mass/Vol] 119 mg/dL High 74-99 [facility] Comment on above: Performed By: #### 9 3685-6 ####JANETH Galo ([id number])[facility] ([facility])[address]66 [place] [address] HCO3 (Bld) [Moles/Vol] 22.9 mmol/L Normal 22.0-26.0 [facility] Comment on above: Performed By: #### 9 3685-6 ####JANETH Galo ([id number])[facility] ([facility])[id number] [place] [address] 88988 Hematocrit Est (Bld) [Volume fraction] 27.0 % Low 36.0-46.0 [facility] Comment on above: Performed By: #### 9 3685-6 ####JANETH Galo ([id number])[facility] ([facility])[id number] [place] [address] 06938 Hemoglobin (Bld) [Mass/Vol] 9.0 g/dL Low 12.0-16.0 [facility] Comment on above: Performed By: #### 9 3685-6 ####JANETH Gaol ([id number])[facility] ([facility])[address]210 [place] [address] Inhaled oxygen concentration 42 % Normal [facility] Comment on above: Performed By: #### 9 3685-6 ####JANETH Galo ([id number])[facility] ([facility])[address]29 [place] [address] Lactate (BldA) [Moles/Vol] 1.3 mmol/L Normal 0.4-2.0 [facility] Comment on above: Performed By: #### 9 3685-6 ####JANETH Galo ([id number])[facility] ([facility])[address]360 [place] [address] Oxygen (Bld) [Partial pressure] 83 mm Hg Low 85-95 [facility] Comment on above: Performed By: #### 9 3685-6 ####JANETH Galo ([id number])[facility] ([facility])[id number] [place] [address] 92292 Oxyhemoglobin (BldA) [Mass fraction] 94.9 % Normal 94.0-98.0 [facility] Comment on above: Performed By: #### 9 3685-6 ####JANETH Galo ([id number])[facility] ([facility])[address] [place] [address] 99618 pH (Bld) 7.40 [pH] Normal 7.38-7.42 [facility] Comment on above: Performed By: #### 9 3685-6 ####JANETH Galo ([id number])[facility] ([facility])[address] [place] [address] 91825 Potassium (BldA) [Moles/Vol] 5.7 mmol/L High 3.5-5.3 [facility] Comment on above: Performed By: #### 9 3685-6 ####JANETH Galo ([id number])[facility] ([facility])[address] [place] [address] 72326 Sodium (BldA) [Moles/Vol] 134 mmol/L Low 136-145 [facility] Comment on above: Performed By: #### 9 3685-6 ####JANETH Galo ([id number])[facility] ([facility])[address] [place] [address] 05604 Anion gap 4 (BldA) [Moles/Vol] 4 Low [facility] Base excess Calc (Bld) [Moles/Vol] -2.1000 mmol/L Low -2.0 - 3.0 mmol/L [facility] Calcium.ionized (BldA) [Moles/Vol] 1.07 mmol/L Low 1.10 - 1.33 mmol/L [facility] Chloride (BldA) [Moles/Vol] 109 mmol/L High 98 - 107 mmol/L [facility] CO2 (Bld) [Partial pressure] 35 mm[Hg] Low [facility] Glucose [Mass/Vol] 142 mg/dL High 74 - 99 mg/dL [facility] HCO3 (Bld) [Moles/Vol] 22.2 mmol/L 22.0 - 26.0 mmol/L [facility] Hematocrit Est (Bld) [Volume fraction] 25 % Low 36.0 - 46.0 % [facility] Hemoglobin (Bld) [Mass/Vol] 8.3 g/dL Low 12.0 - 16.0 g/dL [facility] Inhaled oxygen concentration 42 % [facility] Interpretation and review of laboratory results Abnormal [facility] Lactate (BldA) [Moles/Vol] 1.6 mmol/L 0.4 - 2.0 mmol/L [facility] Oxygen (Bld) [Partial pressure] 132 mm[Hg] High [facility] Oxyhemoglobin (BldA) [Mass fraction] 95.3 % 94.0 - 98.0 % [facility] pH (Bld) 7.41 [pH] 7.38 - 7.42 pH [facility] Potassium (BldA) [Moles/Vol] 5.9 mmol/L High 3.5 - 5.3 mmol/L [facility] Sodium (BldA) [Moles/Vol] 129 mmol/L Low 136 - 145 mmol/L [facility] Anion gap 4 (BldA) [Moles/Vol] 4 mmo/L Low 10-25 [facility] Comment on above: Performed By: #### 9 3685-6 ####JANETH Galo ([id number])[facility] ([facility])[id number] [place] [address] 03595 Base excess Calc (Bld) [Moles/Vol] -2.1000 mmol/L Low -2.0-3.0 [facility] Comment on above: Performed By: #### 9 3685-6 ####JANETH Galo ([id number])[facility] ([facility])[id number] [place] [address] 59475 Calcium.ionized (BldA) [Moles/Vol] 1.07 mmol/L Low 1.10-1.33 [facility] Comment on above: Performed By: #### 9 3685-6 ####JANETH Galo ([id number])[facility] ([facility])[address]14 [place] [address] Chloride (BldA) [Moles/Vol] 109 mmol/L High 98-107 [facility] Comment on above: Performed By: #### 9 3685-6 ####JANETH Galo ([id number])[facility] ([facility])[address] [place] [address] 47164 CO2 (Bld) [Partial pressure] 35 mm Hg Low 38-42 [facility] Comment on above: Performed By: #### 9 3685-6 ####JANETH Galo ([id number])[facility] ([facility])[id number] [place] [address] 36233 Glucose [Mass/Vol] 142 mg/dL High 74-99 [facility] Comment on above: Performed By: #### 9 3685-6 ####JANETH Galo ([id number])[facility] ([facility])[address]338 [place] [address] HCO3 (Bld) [Moles/Vol] 22.2 mmol/L Normal 22.0-26.0 [facility] Comment on above: Performed By: #### 9 6485-6 ####JANETH Galo ([id number])[facility] ([facility])[address] [place] [address] 37308 Hematocrit Est (Bld) [Volume fraction] 25.0 % Low 36.0-46.0 [facility] Comment on above: Performed By: #### 9 8285-6 ####JANETH Galo ([id number])[facility] ([facility])[address] [place] [address] 57843 Hemoglobin (Bld) [Mass/Vol] 8.3 g/dL Low 12.0-16.0 [facility] Comment on above: Performed By: #### 9 3685-6 ####JANETH Galo (50731)[facility] ([facility])[address]08 [place] [address] Inhaled oxygen concentration 42 % Normal [facility] Comment on above: Performed By: #### 9 3685-6 ####JANETH Galo (72396)[facility] ([facility])[address]648 [place] [address] Lactate (BldA) [Moles/Vol] 1.6 mmol/L Normal 0.4-2.0 [facility] Comment on above: Performed By: #### 9 3685-6 ####JANETH Galo ([id number])[facility] ([facility])[address]260 [place] [address] Oxygen (Bld) [Partial pressure] 132 mm Hg High 85-95 [facility] Comment on above: Performed By: #### 9 3685-6 ####JANETH Galo ([id number])[facility] ([facility])[address]187 [place] [address] Oxyhemoglobin (BldA) [Mass fraction] 95.3 % Normal 94.0-98.0 [facility] Comment on above: Performed By: #### 9 3685-6 ####JANETH Galo ([id number])[facility] ([facility])[address]503 [place] [address] pH (Bld) 7.41 [pH] Normal 7.38-7.42 [facility] Comment on above: Performed By: #### 9 3685-6 ####JANETH Galo ([id number])[facility] ([facility])[address]95 [place] [address] Potassium (BldA) [Moles/Vol] 5.9 mmol/L High 3.5-5.3 [facility] Comment on above: Performed By: #### 9 3685-6 ####JANETH Galo ([id number])[facility])[address]64 [place] [address] Sodium (BldA) [Moles/Vol] 129 mmol/L Low 136-145 [facility] Comment on above: Performed By: #### 9 3685-6 ####JANETH Galo ([id number])[facility] ([facility])[address] [place] [address] CO2 (Bld) [Partial pressure] 38 mm Hg Normal 38-42 [facility] Comment on above: Performed By: #### 9 3685-6 ####JANETH Galo ([id number])[facility] ([facility])[address]57 [place] [address] Hematocrit Est (Bld) [Volume fraction] 20.0 % Low 36.0-46.0 [facility] Comment on above: Performed By: #### 9 3685-6 ####JANETH Galo ([id number])[facility] ([facility])[address]334 [place] [address] Oxygen (Bld) [Partial pressure] 122 mm Hg High 85-95 [facility] Comment on above: Performed By: #### 9 3685-6 ####JANETH Galo ([id number])[facility] ([facility])[address]200 [place] [address] Anion gap 4 (BldA) [Moles/Vol] 12 [facility] Base excess Calc (Bld) [Moles/Vol] -1.9000 mmol/L -2.0 - 3.0 mmol/L [facility] Calcium.ionized (BldA) [Moles/Vol] 1.16 mmol/L 1.10 - 1.33 mmol/L [facility] Chloride (BldA) [Moles/Vol] 104 mmol/L 98 - 107 mmol/L [facility] CO2 (Bld) [Partial pressure] 39 mm[Hg] [facility] Glucose [Mass/Vol] 136 mg/dL High 74 - 99 mg/dL [facility] HCO3 (Bld) [Moles/Vol] 23.1 mmol/L 22.0 - 26.0 mmol/L [facility] Hematocrit Est (Bld) [Volume fraction] 17 % Low 36.0 - 46.0 % [facility] Hemoglobin (Bld) [Mass/Vol] 5.6 g/dL Critically low 12.0 - 16.0 g/dL [facility] Inhaled oxygen concentration 42 % [facility] Interpretation and review of laboratory results Abnormal [facility] Lactate (BldA) [Moles/Vol] 1.4 mmol/L 0.4 - 2.0 mmol/L [facility] Oxygen (Bld) [Partial pressure] 132 mm[Hg] High [facility] Oxyhemoglobin (BldA) [Mass fraction] 95.5 % 94.0 - 98.0 % [facility] pH (Bld) 7.38 [pH] Normal 7.38-7.42 [facility] Comment on above: Performed By: #### 9 3685-6 ####JANETH Galo ([id number])[facility] ([facility])[address] [place] [address] Potassium (BldA) [Moles/Vol] 5.8 mmol/L High 3.5 - 5.3 mmol/L [facility] Sodium (BldA) [Moles/Vol] 133 mmol/L Low 136-145 [facility] Comment on above: Performed By: #### 9 3685-6 ####JANETH Galo ([id number])[facility] ([facility])[address] [place], [place] [id number] [facility] Anion gap 4 (BldA) [Moles/Vol] 12 mmo/L Normal 10-25 [facility] Comment on above: Performed By: #### 9 3685-6 ####JANETH Galo ([id number])[facility] ([facility])[address] [place], [place] [id number] Base excess Calc (Bld) [Moles/Vol] -1.9000 mmol/L Normal -2.0-3.0 [facility] Comment on above: Performed By: #### 9 3685-6 ####JANETH Galo ([id number])[facility] ([facility])[address] [place] [address] Calcium.ionized (BldA) [Moles/Vol] 1.16 mmol/L Normal 1.10-1.33 [facility] Comment on above: Performed By: #### 9 3685-6 ####JANETH Galo ([id number])[facility] ([facility])[address] [place] [address] Chloride (BldA) [Moles/Vol] 104 mmol/L Normal 98-107 [facility] Comment on above: Performed By: #### 9 3685-6 ####JANETH Galo ([id number])[facility] ([facility])[address] [place] [address] CO2 (Bld) [Partial pressure] 39 mm Hg Normal 38-42 [facility] Comment on above: Performed By: #### 9 3685-6 ####JANETH Galo ([id number])[facility] ([facility])[address] [place] [address] Glucose [Mass/Vol] 136 mg/dL High 74-99 [facility] Comment on above: Performed By: #### 9 2705-6 ####JANETH Galo ([id number])[facility] ([facility])[address] [place] [address] HCO3 (Bld) [Moles/Vol] 23.1 mmol/L Normal 22.0-26.0 [facility] Comment on above: Performed By: #### 9 3685-6 ####JANETH Galo ([id number])[facility] ([facility])[address] [place] [address] Hematocrit Est (Bld) [Volume fraction] 17.0 % Low 36.0-46.0 [facility] Comment on above: Performed By: #### 9 3685-6 ####JANETH Galo ([id number])[facility] ([facility])[address] [place] [address] Hemoglobin (Bld) [Mass/Vol] 5.6 g/dL Critically low 12.0-16.0 [facility] Comment on above: Performed By: #### 9 3685-6 ####JANETH Galo ([id number])[facility] ([facility])[address] [place] [address] 20825 Inhaled oxygen concentration 42 % Normal [facility] Comment on above: Performed By: #### 9 3685-6 ####JANETH Galo ([id number])[facility] ([facility])[address] [place] [address] 20361 Lactate (BldA) [Moles/Vol] 1.4 mmol/L Normal 0.4-2.0 [facility] Comment on above: Performed By: #### 9 6005-6 ####JANETH Galo ([id number])[facility] ([facility])[address] [place] [address] 45466 Oxygen (Bld) [Partial pressure] 132 mm Hg High 85-95 [facility] Comment on above: Performed By: #### 9 3325-6 ####AJNETH Galo ([id number])[facility] ([facility])[address] [place] [address] 72945 Oxyhemoglobin (BldA) [Mass fraction] 95.5 % Normal 94.0-98.0 [facility] Comment on above: Performed By: #### 9 3685-6 ####JANETH Galo ([id number])[facility] ([facility])[address] [place] [address] 88649 pH (Bld) 7.38 [pH] Normal 7.38-7.42 [facility] Comment on above: Performed By: #### 9 3685-6 ####JANETH GRAFF L ([id number])[facility] ([facility])[address] [place] [address] 16450 Potassium (BldA) [Moles/Vol] 5.8 mmol/L High 3.5-5.3 [facility] Comment on above: Performed By: #### 9 4255-6 ####JANETH Galo ([id number])[facility])[address] [place] [address] Sodium (BldA) [Moles/Vol] 133 mmol/L Low 136-145 [facility] Comment on above: Performed By: #### 9 3685-6 ####JANETH Galo ([id number])[facility])[address] [place] [address] Anion gap 4 (BldA) [Moles/Vol] 10 [facility] Base excess Calc (Bld) [Moles/Vol] -3.6000 mmol/L Low -2.0 - 3.0 mmol/L [facility] Calcium.ionized (BldA) [Moles/Vol] 1.19 mmol/L 1.10 - 1.33 mmol/L [facility] Chloride (BldA) [Moles/Vol] 103 mmol/L 98 - 107 mmol/L [facility] CO2 (Bld) [Partial pressure] 43 mm[Hg] High [facility] Glucose [Mass/Vol] 184 mg/dL High 74 - 99 mg/dL [facility] HCO3 (Bld) [Moles/Vol] 22.2 mmol/L 22.0 - 26.0 mmol/L [facility] Hematocrit Est (Bld) [Volume fraction] 21 % Low 36.0 - 46.0 % [facility] Hemoglobin (Bld) [Mass/Vol] 7 g/dL Low 12.0 - 16.0 g/dL [facility] Inhaled oxygen concentration 42 % [facility] Interpretation and review of laboratory results Abnormal [facility] Lactate (BldA) [Moles/Vol] 1.3 mmol/L Normal 0.4-2.0 [facility] Comment on above: Performed By: #### 9 3685-6 ####JANETH Galo ([id number])[facility])[address] [place] [address] Oxygen (Bld) [Partial pressure] 141 mm[Hg] High [facility] Oxyhemoglobin (BldA) [Mass fraction] 95 % 94.0 - 98.0 % [facility] pH (Bld) 7.32 [pH] Low 7.38 - 7.42 pH [facility] Potassium (BldA) [Moles/Vol] 5.7 mmol/L High 3.5 - 5.3 mmol/L [facility] Sodium (BldA) [Moles/Vol] 129 mmol/L Low 136 - 145 mmol/L [facility] Anion gap 4 (BldA) [Moles/Vol] 13 [facility] Base excess Calc (Bld) [Moles/Vol] -3.6000 mmol/L Low -2.0 - 3.0 mmol/L [facility] Calcium.ionized (BldA) [Moles/Vol] 1.2 mmol/L 1.10 - 1.33 mmol/L [facility] Chloride (BldA) [Moles/Vol] 101 mmol/L 98 - 107 mmol/L [facility] CO2 (Bld) [Partial pressure] 46 mm[Hg] High [facility] Glucose [Mass/Vol] 158 mg/dL High 74 - 99 mg/dL [facility] HCO3 (Bld) [Moles/Vol] 22.6 mmol/L 22.0 - 26.0 mmol/L [facility] Hematocrit Est (Bld) [Volume fraction] 23 % Low 36.0 - 46.0 % [facility] Hemoglobin (Bld) [Mass/Vol] 7.5 g/dL Low 12.0 - 16.0 g/dL [facility] Inhaled oxygen concentration 42 % Normal [facility] Comment on above: Performed By: #### 9 3685-6 ####JANETH Galo ([id number])[facility] ([facility])[address] [place] [address] Interpretation and review of laboratory results Abnormal [facility] Lactate (BldA) [Moles/Vol] 1.6 mmol/L 0.4 - 2.0 mmol/L [facility] Oxygen (Bld) [Partial pressure] 109 mm[Hg] High [facility] Oxyhemoglobin (BldA) [Mass fraction] 94.7 % 94.0 - 98.0 % [facility] pH (Bld) 7.3 [pH] Low 7.38 - 7.42 pH [facility] Potassium (BldA) [Moles/Vol] 6.2 mmol/L Critically high 3.5 - 5.3 mmol/L [facility] Sodium (BldA) [Moles/Vol] 130 mmol/L Low 136 - 145 mmol/L [facility] Anion gap 4 (BldA) [Moles/Vol] 10 mmo/L Normal 10-25 [facility] Comment on above: Performed By: #### 9 3685-6 ####JANETH Galo ([id number])[facility])[id number] [place] [address] 45597 Base excess Calc (Bld) [Moles/Vol] -3.6000 mmol/L Low -2.0-3.0 [facility] Comment on above: Performed By: #### 9 3685-6 ####JANETH Galo ([id number])[facility])[address] [place] [address] 64685 Calcium.ionized (BldA) [Moles/Vol] 1.19 mmol/L Normal 1.10-1.33 [facility] Comment on above: Performed By: #### 9 3685-6 ####JANETH Galo ([id number])[facility])[address] [place] [address] 18182 Chloride (BldA) [Moles/Vol] 103 mmol/L Normal 98-107 [facility] Comment on above: Performed By: #### 9 3685-6 ####JANETH Galo ([id number])[facility])[address] [place] [address] CO2 (Bld) [Partial pressure] 43 mm Hg High 38-42 [facility] Comment on above: Performed By: #### 9 3685-6 ####JANETH Galo ([id number])[facility])[address] [place] [address] 00772 Glucose [Mass/Vol] 184 mg/dL High 74-99 [facility] Comment on above: Performed By: #### 9 3685-6 ####JANETH Glao ([id number])[facility])[address] [place] [address] 74117 HCO3 (Bld) [Moles/Vol] 22.2 mmol/L Normal 22.0-26.0 [facility] Comment on above: Performed By: #### 9 3685-6 ####JANETH Galo ([id number])[facility])[address] [place] [address] 38783 Hematocrit Est (Bld) [Volume fraction] 21.0 % Low 36.0-46.0 [facility] Comment on above: Performed By: #### 9 3685-6 ####JANETH Galo ([id number])[facility])[address] [place] [address] 02285 Hemoglobin (Bld) [Mass/Vol] 7.0 g/dL Low 12.0-16.0 [facility] Comment on above: Performed By: #### 9 3685-6 ####JANETH Galo ([id number])[facility])[address] [place] [address] 66076 Inhaled oxygen concentration 42 % Normal [facility] Comment on above: Performed By: #### 9 3685-6 ####JANETH Galo ([id number])[facility])[address] [place] [address] 80667 Lactate (BldA) [Moles/Vol] 1.3 mmol/L Normal 0.4-2.0 [facility] Comment on above: Performed By: #### 9 3685-6 ####JANETH Galo ([id number])[facility])[address] [place] [address] 09859 Oxygen (Bld) [Partial pressure] 141 mm Hg High 85-95 [facility] Comment on above: Performed By: #### 9 3685-6 ####JANETH Galo ([id number])[facility])[address] [place] [address] 42794 Oxyhemoglobin (BldA) [Mass fraction] 95.0 % Normal 94.0-98.0 [facility] Comment on above: Performed By: #### 9 3685-6 ####JANETH Galo ([id number])[facility])[address] [place] [address] 40544 pH (Bld) 7.32 [pH] Low 7.38-7.42 [facility] Comment on above: Performed By: #### 9 3685-6 ####JANETH Galo ([id number])[facility])[address] [place] [address] 82390 Potassium (BldA) [Moles/Vol] 5.7 mmol/L High 3.5-5.3 [facility] Comment on above: Performed By: #### 9 3685-6 ####JANETH Galo ([id number])[facility])[address] [place] [address] 14279 Sodium (BldA) [Moles/Vol] 129 mmol/L Low 136-145 [facility] Comment on above: Performed By: #### 9 3685-6 ####JANETH Galo ([id number])[facility])[address] [place] [address] 37724 Anion gap 4 (BldA) [Moles/Vol] 13 mmo/L Normal 10-25 [facility] Comment on above: Performed By: #### 9 3685-6 ####JANETH Galo ([id number])[facility])[address] [place] [address] 65001 Base excess Calc (Bld) [Moles/Vol] -3.6000 mmol/L Low -2.0-3.0 [facility] Comment on above: Performed By: #### 9 3685-6 ####JANETH Galo ([id number])[facility])[address] [place] [address] 94210 Calcium.ionized (BldA) [Moles/Vol] 1.20 mmol/L Normal 1.10-1.33 [facility] Comment on above: Performed By: #### 9 3685-6 ####JANETH Galo ([id number])[facility])[address] [place] [address] Chloride (BldA) [Moles/Vol] 101 mmol/L Normal 98-107 [facility] Comment on above: Performed By: #### 9 3685-6 ####JANETH Galo ([id number])[facility])[address] [place] [address] 09959 CO2 (Bld) [Partial pressure] 46 mm Hg High 38-42 [facility] Comment on above: Performed By: #### 9 3685-6 ####JANETH Galo ([id number])[facility])[address] [place] [address] 29433 Glucose [Mass/Vol] 158 mg/dL High 74-99 [facility] Comment on above: Performed By: #### 9 3685-6 ####JANETH Galo ([id number])[facility])[address] [place] [address] HCO3 (Bld) [Moles/Vol] 22.6 mmol/L Normal 22.0-26.0 [facility] Comment on above: Performed By: #### 9 3685-6 ####JANETH Galo (54135)[facility])[address] [place] [address] Hematocrit Est (Bld) [Volume fraction] 23.0 % Low 36.0-46.0 [facility] Comment on above: Performed By: #### 9 3685-6 ####JANETH Galo ([id number])[facility])[address] [place] [address] 08319 Hemoglobin (Bld) [Mass/Vol] 7.5 g/dL Low 12.0-16.0 [facility] Comment on above: Performed By: #### 9 3685-6 ####JANETH Galo ([id number])[facility])[address] [place] [address] Inhaled oxygen concentration 42 % Normal [facility] Comment on above: Performed By: #### 9 3685-6 ####JANETH Galo ([id number])[facility])[address] [place] [address] Lactate (BldA) [Moles/Vol] 1.6 mmol/L Normal 0.4-2.0 [facility] Comment on above: Performed By: #### 9 3685-6 ####JANETH Galo (58736)[facility])[address] [place] [address] Oxygen (Bld) [Partial pressure] 109 mm Hg High 85-95 [facility] Comment on above: Performed By: #### 9 3685-6 ####JANETH Galo (29832)[facility])[address] [place] [address] Oxyhemoglobin (BldA) [Mass fraction] 94.7 % Normal 94.0-98.0 [facility] Comment on above: Performed By: #### 9 7115-6 ####JANETH Galo (88831)[facility])[address] [place] [address] pH (Bld) 7.30 [pH] Low 7.38-7.42 [facility] Comment on above: Performed By: #### 9 7505-6 ####JANETH Galo ([id number])[facility])[address] [place] [address] Potassium (BldA) [Moles/Vol] 6.2 mmol/L Critically high 3.5-5.3 [facility] Comment on above: Performed By: #### 9 0735-6 ####JANETH Galo (07948)[facility])[address] [place] [address] Sodium (BldA) [Moles/Vol] 130 mmol/L Low 136-145 [facility] Comment on above: Performed By: #### 9 3685-6 ####JANETH Galo ([id number])[facility])[address] [place] [address] 89795 Gas and Carbon monoxide and Electrolytes panel (BldA)Ordered By: Jin Barajas on 03-25-2024 Anion gap 4 (BldA) [Moles/Vol] 12 [facility] Base excess Calc (Bld) [Moles/Vol] -2.4000 mmol/L Low -2.0-3.0 [facility] Comment on above: Performed By: #### 9 3685-6 ####JANETH Galo ([id number])[facility])[address] [place] [address] 84732 Calcium.ionized (BldA) [Moles/Vol] 1.21 mmol/L Normal 1.10-1.33 [facility] Comment on above: Performed By: #### 9 3685-6 ####JANETH Galo ([id number])[facility])[address] [place] [address] 20719 Chloride (BldA) [Moles/Vol] 105 mmol/L Normal 98-107 [facility] Comment on above: Performed By: #### 9 3685-6 ####JANTEH Galo (85928)[facility])[address] [place] [address] 72542 CO2 (Bld) [Partial pressure] 38 mm[Hg] [facility] Glucose [Mass/Vol] 134 mg/dL High 74-99 [facility] Comment on above: Performed By: #### 9 3685-6 ####JANETH Galo ([id number])[facility])[address] [place] [address] 60926 HCO3 (Bld) [Moles/Vol] 22.5 mmol/L Normal 22.0-26.0 [facility] Comment on above: Performed By: #### 9 3685-6 ####JANETH Galo (89214)[facility] ([facility])[address] [place] [address] 07242 Hematocrit Est (Bld) [Volume fraction] 20 % Low 36.0 - 46.0 % [facility] Hemoglobin (Bld) [Mass/Vol] 6.5 g/dL Critically low 12.0-16.0 [facility] Comment on above: Performed By: #### 9 3685-6 ####JANETH Galo ([id number])[facility])[address] [place] [address] 16687 Inhaled oxygen concentration 42 % [facility] Interpretation and review of laboratory results Abnormal [facility] Lactate (BldA) [Moles/Vol] 1.3 mmol/L 0.4 - 2.0 mmol/L [facility] Oxygen (Bld) [Partial pressure] 122 mm[Hg] High [facility] Oxyhemoglobin (BldA) [Mass fraction] 95.6 % Normal 94.0-98.0 [facility] Comment on above: Performed By: #### 9 3685-6 ####JANETH Galo ([id number])[facility] ([facility])[address] [place] [address] 98207 pH (Bld) 7.38 [pH] 7.38 - 7.42 pH [facility] Potassium (BldA) [Moles/Vol] 6.3 mmol/L Critically high 3.5-5.3 [facility] Comment on above: Performed By: #### 9 3685-6 ####JANETH Galo ([id number])[facility] ([facility])[address] [place] [address] 72520 Sodium (BldA) [Moles/Vol] 133 mmol/L Low 136 - 145 mmol/L [facility] HCG ( test) Ql (U)o n 03-25-2024 Interpretation and review of laboratory results Normal [facility] Work Phone: Preg Test, Ur Negative Negative [facility] Work Phone: [facility] Work Phone: Magnesiumon 03-25-2024 Magnesium [Mass/Vol] 2.72 mg/dL High 1.60 - 2.40 mg/dL [facility] Magnesium [Mass/Vol] 2.72 mg/dL High 1.60-2.40 [facility] Comment on above: Performed By: #### 1 9123-9 ####JANETH Galo ([id number])[facility] ([facility])[address] [place], [place] [address] 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 Org specific cx Nom (Unsp spec) [facility] Comment on above: Performed By: #### 5 43-9 ####JANETH Galo ([id number])[facility] ([facility])[address] [place] [address] No Panel Informationon 03-25 Interpretation and review of laboratory results Abnormal [facility] Phosphateon 03-25-2024 Phosphate [Mass/Vol] 4.0 mg/dL Normal 2.5-4.9 [facility] Comment on above: Result Comment: The performance characteristics of phosphorus testing in heparinized plasma have been validated by the individual laboratory site where testing is performed. Testing on heparinized plasma is not approved by the FDA; however, such approval is not necessary. Performed By: #### 2 777-1 ####JANETH Galo ([id number])[facility] ([facility])[address] [place], [place] [address] Phosphate [Mass/Vol]on 03-25 Interpretation and review of laboratory results Normal [facility] Phosphoruson 03-25-2024 Phosphate [Mass/Vol] 4 mg/dL 2.5 - 4 .9 mg/dL [facility] Comment on above: The performance lucia acteristics of phosphorus testing in heparinized plasma have been validated by the individual laboratory site where testing is performed. Testing on heparinized plasma is not approved by the FDA; however, such approval is not necessary. Prepare RBC: 1 Unitson 03-25 Blood Expiration Date 04/23/2024 11:59:00 PM EST [facility] Dispense Status TR [facility] PRODUCT BLOOD TYPE 6200 [facility] PRODUCT CODE [id number] [facility] Unit ABO A [facility] Unit Number [id number] [facility] Unit RH Positive [facility] UNIT VOLUME 350 [facility] XM INTEP COMP [facility] Renal function 2000 panelon 03-25-2024 Albumin BCP dye [Mass/Vol] 4 g/dL 3.4 - 5.0 g/dL [facility] Anion gap [Moles/Vol] 14 mmol/L 10 - 2 0 mmol/L [facility] Calcium [Mass/Vol] 8.7 mg/dL 8.6 - 10. 6 mg/dL [facility] Chloride [Moles/Vol] 104 mmol/L 98 - 10 7 mmol/L [facility] CO2 [Moles/Vol] 24 mmol/L 21 - 32 mmol/L [facility] Creatinine [Mass/Vol] 1.67 mg/dL High 0.50 - 1.05 mg/dL [facility] GFR/1.73 sq M.predicted among non-blacks MDRD (S/P/Bld) [Vol rate/Area] 37 mL/min/{1.73_m2} Low - PINF [facility] Comment on above: Calculations of bill mated GFR are performed using the 2020 CKD-EPI Study Refit equation without the race variable for the IDMS-Traceable creatinine methods. https://jasn.asnjournals.org/content//ASN.814281 5593 Glucose [Mass/Vol] 128 mg/dL High 74 - 99 mg/dL [facility] Interpretation and review of laboratory results Abnormal [facility] Phosphate [Mass/Vol] 3.4 mg/dL 2.5 - 4 .9 mg/dL [facility] Comment on above: The performance lucia acteristics of phosphorus testing in heparinized plasma have been validated by the individual laboratory site where testing is performed. Testing on heparinized plasma is not approved by the FDA; however, such approval is not necessary. Potassium [Moles/Vol] 5.7 mmol/L High 3.5 - 5.3 mmol/L [facility] Sodium [Moles/Vol] 136 mmol/L 136 - 145 mmol/L [facility] Urea nitrogen [Mass/Vol] 35 mg/dL High 6 - 23 mg/dL [facility] Albumin BCP dye [Mass/Vol] 4.0 g/dL Normal 3.4-5.0 [facility] Comment on above: Performed By: #### 2 4362-6 ####JANETH Galo ([id number])[facility] ([facility])[address] [place] [address] Anion gap [Moles/Vol] 14 mmol/L Normal 10-20 [facility] Comment on above: Performed By: #### 2 4362-6 ####JANETH Galo ([id number])[facility] ([facility])[address] [place] [address] 73442 Calcium [Mass/Vol] 8.7 mg/dL Normal 8.6-10.6 [facility] Comment on above: Performed By: #### 2 4362-6 ####JANETH Galo ([id number])[facility] ([facility])[address] [place] [address] Chloride [Moles/Vol] 104 mmol/L Normal 98-107 [facility] Comment on above: Performed By: #### 2 4362-6 ####JANETH Galo ([id number])[facility])[address] [place] [address] CO2 [Moles/Vol] 24 mmol/L Normal 21-32 [facility] Comment on above: Performed By: #### 2 4362-6 ####JANETH Galo ([id number])[facility])[address] [place] [address] Creatinine [Mass/Vol] 1.67 mg/dL High 0.50-1.05 [facility] Comment on above: Performed By: #### 2 4362-6 ####JANETH Glao (98061)[facility] ([facility])[address] [place] [address] Glomerular filtration rate/1.73 sq M.predicted 37 mL/min/1.73m*2 Low >60 [facility] Comment on above: Result Comment: Calc ulations of estimated GFR are performed using the 2020 CKD-EPI Study Refit equation without the race variable for the IDMS-Traceable creatinine methods.https://jasn.asnjournals.org/content/early// N.9840369910 Performed By: #### 2 4362-6 ####JANETH Galo ([id number])[facility] ([facility])[address] [place] [address] Glucose [Mass/Vol] 128 mg/dL High 74-99 [facility] Comment on above: Performed By: #### 2 4362-6 ####JANETH Galo ([id number])[facility])[address] [place] [address] Phosphate [Mass/Vol] 3.4 mg/dL Normal 2.5-4.9 [facility] Comment on above: Result Comment: The performance characteristics of phosphorus testing in heparinized plasma have been validated by the individual laboratory site where testing is performed. Testing on heparinized plasma is not approved by the FDA; however, such approval is not necessary. Performed By: #### 2 4362-6 ####JANETH Galo ([id number])[facility] ([facility])[address] [place] [address] Potassium [Moles/Vol] 5.7 mmol/L High 3.5-5.3 [facility] Comment on above: Performed By: #### 2 4362-6 ####JANETH Galo ([id number])[facility])[address] [place] [address] Sodium [Moles/Vol] 136 mmol/L Normal 136-145 [facility] Comment on above: Performed By: #### 2 4362-6 ####JANETH Galo ([id number])[facility])[address] [place] [address] Urea nitrogen [Mass/Vol] 35 mg/dL High 6-23 [facility] Comment on above: Performed By: #### 2 4362-6 ####JANETH Galo ([id number])[facility])[address] [place] [address] XR CHEST 1 VIEWon 03-25-2024 XR CHEST 1 VIEW Normal [facility] XR Chest Single viewon 03-25 Radiology Study observation (narrative) [facility] Work Phone: Basic metabolic 2000 panelon 03-18-2024 Anion gap [Moles/Vol] 12 mmol/L 10 - 2 0 mmol/L [facility] Calcium [Mass/Vol] 9.4 mg/dL 8.6 - 10. 6 mg/dL [facility] Chloride [Moles/Vol] 100 mmol/L 98 - 10 7 mmol/L [facility] CO2 [Moles/Vol] 30 mmol/L 21 - 32 mmol/L [facility] Creatinine [Mass/Vol] 0.63 mg/dL 0.50 - 1.05 mg/dL [facility] eGFR - PINF [facility] Comment on above: Calculations of bill mated GFR are performed using the 2020 CKD-EPI Study Refit equation without the race variable for the IDMS-Traceable creatinine methods. https://jasn.asnjournals.org/content//ASN.896187 3175 Glucose [Mass/Vol] 88 mg/dL 74 - 99 mg/dL [facility] Interpretation and review of laboratory results Normal [facility] Potassium [Moles/Vol] 4.8 mmol/L 3.5 - 5.3 mmol/L [facility] Comment on above: MILD HEMOLYSIS DETEC ROSANNA. The result may be falsely elevated due to hemolysis or other interferents. Clinical correlation is recommended. Repeat testing may be considered. Sodium [Moles/Vol] 137 mmol/L 136 - 145 mmol/L [facility] Urea nitrogen [Mass/Vol] 13 mg/dL 6 - 23 mg/dL [facility] Anion gap [Moles/Vol] 12 mmol/L Normal 10-20 [facility] Comment on above: Performed By: #### 2 4321-2 ####JANETH Galo ([id number])[facility] ([facility])[address] [place] [address] Calcium [Mass/Vol] 9.4 mg/dL Normal 8.6-10.6 [facility] Comment on above: Performed By: #### 2 4321-2 ####JANETH GRAFF L ([id number])[facility] ([facility])[address] [place] [address] Chloride [Moles/Vol] 100 mmol/L Normal 98-107 [facility] Comment on above: Performed By: #### 2 4321-2 ####JANETH GRAFF L ([id number])[facility] ([facility])[address] [place] [address] CO2 [Moles/Vol] 30 mmol/L Normal 21-32 [facility] Comment on above: Performed By: #### 2 4321-2 ####JANETH GRAFF L ([id number])[facility] ([facility])[address] [place] [address] Creatinine [Mass/Vol] 0.63 mg/dL Normal 0.50-1.05 [facility] Comment on above: Performed By: #### 2 4321-2 ####JANETH GRAFF L ([id number])[facility] ([facility])[address] [place] [address] GFR/1.73 sq M.predicted MDRD (S/P/Bld) [Vol rate/Area] mL/min/{1.73_m2} Normal >60 [facility] Comment on above: Result Comment: Calc ulations of estimated GFR are performed using the 2020 CKD-EPI Study Refit equation without the race variable for the IDMS-Traceable creatinine methods.https://jasn.asnjournals.org/content/early// N.1520496391 Performed By: #### 2 4321-2 ####JANETH Galo ([id number])[facility] ([facility])[address] [place] [address] Glucose [Mass/Vol] 88 mg/dL Normal 74-99 [facility] Comment on above: Performed By: #### 2 4321-2 ####JANETH Galo ([id number])[facility] ([facility])[address] [place] [address] Potassium [Moles/Vol] 4.8 mmol/L Normal 3.5-5.3 [facility] Comment on above: Result Comment: MILD HEMOLYSIS DETECTED. The result may be falsely elevated due to hemolysis or other interferents. Clinical correlation is recommended. Repeat testing may be considered. Performed By: #### 2 4321-2 ####JANETH Galo ([id number])[facility] ([facility])[address] [place] [address] Sodium [Moles/Vol] 137 mmol/L Normal 136-145 [facility] Comment on above: Performed By: #### 2 4321-2 ####JANETH Galo ([id number])[facility] ([facility])[address] [place] [address] Urea nitrogen [Mass/Vol] 13 mg/dL Normal 6-23 [facility] Comment on above: Performed By: #### 2 4321-2 ####JANETH Galo ([id number])[facility] ([facility])[address] [place] [address] Basic metabolic 2000 panelon 03-17-2024 Anion gap [Moles/Vol] 12 mmol/L 10 - 2 0 mmol/L [facility] Calcium [Mass/Vol] 9.3 mg/dL 8.6 - 10. 6 mg/dL [facility] Chloride [Moles/Vol] 101 mmol/L 98 - 10 7 mmol/L [facility] CO2 [Moles/Vol] 29 mmol/L 21 - 32 mmol/L [facility] Creatinine [Mass/Vol] 0.63 mg/dL 0.50 - 1.05 mg/dL [facility] eGFR - PINF [facility] Comment on above: Calculations of bill mated GFR are performed using the 2020 CKD-EPI Study Refit equation without the race variable for the IDMS-Traceable creatinine methods. https://jasn.asnjournals.org/content//ASN.175674 1803 Glucose [Mass/Vol] 81 mg/dL 74 - 99 mg/dL [facility] Interpretation and review of laboratory results Normal [facility] Potassium [Moles/Vol] 4.7 mmol/L 3.5 - 5.3 mmol/L [facility] Sodium [Moles/Vol] 137 mmol/L 136 - 145 mmol/L [facility] Urea nitrogen [Mass/Vol] 12 mg/dL 6 - 23 mg/dL [facility] Anion gap [Moles/Vol] 12 mmol/L Normal 10-20 [facility] Comment on above: Performed By: #### 2 4321-2 ####JANETH Galo ([id number])[facility] ([facility])[address] [place] [address] Calcium [Mass/Vol] 9.3 mg/dL Normal 8.6-10.6 [facility] Comment on above: Performed By: #### 2 4321-2 ####JANETH Galo ([id number])[facility] ([facility])[id number] [place] [address] Chloride [Moles/Vol] 101 mmol/L Normal 98-107 [facility] Comment on above: Performed By: #### 2 4321-2 ####JANETH Galo ([id number])[facility])[address] [place] [address] CO2 [Moles/Vol] 29 mmol/L Normal 21-32 [facility] Comment on above: Performed By: #### 2 4321-2 ####JANETH Galo ([id number])[facility] ([facility])[address] [place] [address] Creatinine [Mass/Vol] 0.63 mg/dL Normal 0.50-1.05 [facility] Comment on above: Performed By: #### 2 4321-2 ####JANETH Galo ([id number])[facility] ([facility])[address] [place] [address] GFR/1.73 sq M.predicted MDRD (S/P/Bld) [Vol rate/Area] mL/min/{1.73_m2} Normal >60 [facility] Comment on above: Result Comment: Calc ulations of estimated GFR are performed using the 2020 CKD-EPI Study Refit equation without the race variable for the IDMS-Traceable creatinine methods.https://jasn.asnjournals.org/content/early/ N.2103732320 Performed By: #### 2 4321-2 ####JANETH Galo ([id number])[facility] ([facility])[address] [place] [address] Glucose [Mass/Vol] 81 mg/dL Normal 74-99 [facility] Comment on above: Performed By: #### 2 4321-2 ####JANETH Galo ([id number])[facility] ([facility])[address] [place] [address] Potassium [Moles/Vol] 4.7 mmol/L Normal 3.5-5.3 [facility] Comment on above: Performed By: #### 2 4321-2 ####JANETH GRAFF L ([id number])[facility] ([facility])[address] [place] [address] Sodium [Moles/Vol] 137 mmol/L Normal 136-145 [facility] Comment on above: Performed By: #### 2 4321-2 ####JANETH Galo ([id number])[facility])[address] [place] [address] Urea nitrogen [Mass/Vol] 12 mg/dL Normal 6-23 [facility] Comment on above: Performed By: #### 2 4321-2 ####JANETH Galo ([id number])[facility] ([facility])[address] [place] [address] CBC panel Auto (Bld)on 03-17 Erythrocyte distribution width (RBC) [Ratio] 17 % High 11.5 - 14.5 % [facility] Hematocrit (Bld) [Volume fraction] 26.8 % Low 36.0 - 46.0 % [facility] Hemoglobin (Bld) [Mass/Vol] 7.8 g/dL Low 12.0 - 16.0 g/dL [facility] Interpretation and review of laboratory results Abnormal [facility] MCH (RBC) [Entitic mass] 26.4 pg 26.0 - 34.0 pg [facility] MCHC (RBC) [Mass/Vol] 29.1 g/dL Low 32.0 - 36.0 g/dL [facility] MCV (RBC) [Entitic vol] 91 fL 80 - 100 fL [facility] Nucleated RBC/100 WBC (Bld) [Ratio] 1.3 % High [facility] Platelets (Bld) [#/Vol] 505 10*3/uL High [facility] RBC (Bld) [#/Vol] 2.95 10*6/uL Low [facility] WBC (Bld) [#/Vol] 13 10*3/uL High [facility] Erythrocyte distribution width (RBC) [Ratio] 17.0 % High 11.5-14.5 [facility] Comment on above: Performed By: #### 5 8410-2 ####JANETH Galo ([id number])[facility] ([facility])[address] [place] [address] Hematocrit (Bld) [Volume fraction] 26.8 % Low 36.0-46.0 [facility] Comment on above: Performed By: #### 5 8410-2 ####JANETH Galo ([id number])[facility] ([facility])[address] [place] [address] Hemoglobin (Bld) [Mass/Vol] 7.8 g/dL Low 12.0-16.0 [facility] Comment on above: Performed By: #### 5 8410-2 ####JANETH Galo ([id number])[facility] ([facility])[address] [place] [address] MCH (RBC) [Entitic mass] 26.4 pg Normal 26.0-34.0 [facility] Comment on above: Performed By: #### 5 8410-2 ####JANETH Galo ([id number])[facility] ([facility])[address] [place] [address] MCHC (RBC) [Mass/Vol] 29.1 g/dL Low 32.0-36.0 [facility] Comment on above: Performed By: #### 5 8410-2 ####JANETH Galo ([id number])[facility])[address] [place] [address] MCV (RBC) [Entitic vol] 91 fL Normal 80-100 [facility] Comment on above: Performed By: #### 5 8410-2 ####JANETH Galo ([id number])[facility] ([facility])[address] [place] [address] Nucleated RBC/100 WBC (Bld) [Ratio] 1.3 /100 WBCs High 0.0-0.0 [facility] Comment on above: Performed By: #### 5 8410-2 ####JANETH Galo ([id number])[facility] ([facility])[address] [place] [address] Platelets (Bld) [#/Vol] 505 x10*3/uL High 150-450 [facility] Comment on above: Performed By: #### 5 8410-2 ####JANETH Galo ([id number])[facility] ([facility])[address] [place] [address] RBC (Bld) [#/Vol] 2.95 x10*6/uL Low 4.00-5.20 [facility] Comment on above: Performed By: #### 5 8410-2 ####JANETH Galo ([id number])[facility] ([facility])[address] [place] [address] WBC (Bld) [#/Vol] 13.0 x10*3/uL High 4.4-11.3 [facility] Comment on above: Performed By: #### 5 8410-2 ####JANETH Galo ([id number])[facility] ([facility])[address] [place] [address] Basic metabolic 2000 panelon 03-16-2024 Anion gap [Moles/Vol] 9 mmol/L Low 10 - 2 0 mmol/L [facility] Calcium [Mass/Vol] 8.3 mg/dL Low 8.6 - 10. 6 mg/dL [facility] Chloride [Moles/Vol] 102 mmol/L 98 - 10 7 mmol/L [facility] CO2 [Moles/Vol] 31 mmol/L 21 - 32 mmol/L [facility] Creatinine [Mass/Vol] 0.48 mg/dL Low 0.50 - 1.05 mg/dL [facility] eGFR - PINF [facility] Comment on above: Calculations of bill mated GFR are performed using the 2020 CKD-EPI Study Refit equation without the race variable for the IDMS-Traceable creatinine methods. https://jasn.asnjournals.org/content//ASN.220770 9199 Glucose [Mass/Vol] 124 mg/dL High 74 - 99 mg/dL [facility] Interpretation and review of laboratory results Abnormal [facility] Potassium [Moles/Vol] 3.9 mmol/L 3.5 - 5.3 mmol/L [facility] Sodium [Moles/Vol] 138 mmol/L 136 - 145 mmol/L [facility] Urea nitrogen [Mass/Vol] 12 mg/dL 6 - 23 mg/dL [facility] Anion gap [Moles/Vol] 9 mmol/L Low 10-20 [facility] Comment on above: Performed By: #### 2 4321-2 ####JANETH GRAFF L ([id number])[facility] ([facility])[address] [place] [address] Calcium [Mass/Vol] 8.3 mg/dL Low 8.6-10.6 [facility] Comment on above: Performed By: #### 2 4321-2 ####JANETH GRAFF L ([id number])[facility] ([facility])[address] [place] [address] Chloride [Moles/Vol] 102 mmol/L Normal 98-107 [facility] Comment on above: Performed By: #### 2 4321-2 ####JANETH GRAFF L ([id number])[facility] ([facility])[address] [place] [address] CO2 [Moles/Vol] 31 mmol/L Normal 21-32 [facility] Comment on above: Performed By: #### 2 4321-2 ####JANETH GRAFF L ([id number])[facility] ([facility])[address] [place] [address] Creatinine [Mass/Vol] 0.48 mg/dL Low 0.50-1.05 [facility] Comment on above: Performed By: #### 2 4321-2 ####JANETH GRAFF L ([id number])[facility] ([facility])[address] [place] [address] GFR/1.73 sq M.predicted MDRD (S/P/Bld) [Vol rate/Area] mL/min/{1.73_m2} Normal >60 [facility] Comment on above: Result Comment: Calc ulations of estimated GFR are performed using the 2020 CKD-EPI Study Refit equation without the race variable for the IDMS-Traceable creatinine methods.https://jasn.asnjournals.org/content/early/ N.9071009723 Performed By: #### 2 4321-2 ####JANETH Galo ([id number])[facility] ([facility])[address] [place] [address] Glucose [Mass/Vol] 124 mg/dL High 74-99 [facility] Comment on above: Performed By: #### 2 4321-2 ####JANETH Galo ([id number])[facility] ([facility])[address] [place] [address] Potassium [Moles/Vol] 3.9 mmol/L Normal 3.5-5.3 [facility] Comment on above: Performed By: #### 2 4321-2 ####JANETH Galo ([id number])[facility] ([facility])[address] [place] [address] Sodium [Moles/Vol] 138 mmol/L Normal 136-145 [facility] Comment on above: Performed By: #### 2 4321-2 ####JANETH Galo ([id number])[facility] ([facility])[address] [place] [address] Urea nitrogen [Mass/Vol] 12 mg/dL Normal 6-23 [facility] Comment on above: Performed By: #### 2 4321-2 ####JANETH Galo ([id number])[facility] ([facility])[address] [place] [address] CBC panel Auto (Bld)on 03-16 Erythrocyte distribution width (RBC) [Ratio] 16.9 % High 11.5 - 14.5 % [facility] Hematocrit (Bld) [Volume fraction] 24 % Low 36.0 - 46.0 % [facility] Hemoglobin (Bld) [Mass/Vol] 7.3 g/dL Low 12.0 - 16.0 g/dL [facility] Interpretation and review of laboratory results Abnormal [facility] MCH (RBC) [Entitic mass] 26.8 pg 26.0 - 34.0 pg [facility] MCHC (RBC) [Mass/Vol] 30.4 g/dL Low 32.0 - 36.0 g/dL [facility] MCV (RBC) [Entitic vol] 88 fL 80 - 100 fL [facility] Nucleated RBC/100 WBC (Bld) [Ratio] 1 % High [facility] Platelets (Bld) [#/Vol] 416 10*3/uL [facility] RBC (Bld) [#/Vol] 2.72 10*6/uL Low [facility] WBC (Bld) [#/Vol] 12.5 10*3/uL High [facility] Erythrocyte distribution width (RBC) [Ratio] 16.9 % High 11.5-14.5 [facility] Comment on above: Performed By: #### 5 8410-2 ####JANETH Galo ([id number])[facility] ([facility])[address] [place] [address] Hematocrit (Bld) [Volume fraction] 24.0 % Low 36.0-46.0 [facility] Comment on above: Performed By: #### 5 8410-2 ####JANETH Galo ([id number])[facility] ([facility])[address] [place] [address] Hemoglobin (Bld) [Mass/Vol] 7.3 g/dL Low 12.0-16.0 [facility] Comment on above: Performed By: #### 5 8410-2 ####JANETH Galo ([id number])[facility] ([facility])[address] [place] [address] MCH (RBC) [Entitic mass] 26.8 pg Normal 26.0-34.0 [facility] Comment on above: Performed By: #### 5 8410-2 ####JANETH Galo ([id number])[facility] ([facility])[address] [place] [address] MCHC (RBC) [Mass/Vol] 30.4 g/dL Low 32.0-36.0 [facility] Comment on above: Performed By: #### 5 8410-2 ####JANETH Galo ([id number])[facility] ([facility])[address] [place] [address] MCV (RBC) [Entitic vol] 88 fL Normal 80-100 [facility] Comment on above: Performed By: #### 5 8410-2 ####JANETH Galo ([id number])[facility] ([facility])[address] [place] [address] Nucleated RBC/100 WBC (Bld) [Ratio] 1.0 /100 WBCs High 0.0-0.0 [facility] Comment on above: Performed By: #### 5 8410-2 ####JANETH Galo ([id number])[facility])[address] [place] [address] Platelets (Bld) [#/Vol] 416 x10*3/uL Normal 150-450 [facility] Comment on above: Performed By: #### 5 8410-2 ####JANETH Galo ([id number])[facility] ([facility])[address] [place] [address] RBC (Bld) [#/Vol] 2.72 x10*6/uL Low 4.00-5.20 [facility] Comment on above: Performed By: #### 5 8410-2 ####JANETH Galo ([id number])[facility])[address] [place] [address] WBC (Bld) [#/Vol] 12.5 x10*3/uL High 4.4-11.3 [facility] Comment on above: Performed By: #### 5 8410-2 ####JANETH Galo ([id number])[facility] ([facility])[address] [place] [address] [place] 03-16-2024 BRITNEY Telephone (DENISENYSPENCER) ----- DEIDRA DE LA CRUZ ([id number]) 1970 F Date Time Provider Department 03/16/24 BIAJN ELMORE During your visit today, we recorded the following information about you: Lorna Tolbert 03/16/2024 12:46 PM Signed Deidra is calling Bijan Elmore MD today with concern regarding a situation where she needs a nurse 1-2 times a week before the hospital will release her. [facility]- has been trying to get her someone, but they cannot find anyone in her area. She has a special needs son at home that needs her and she needs this set up before she can go home. She is asking for staff and Dr. Elmore to please help her. Patient has been identified by name and birthdate. Duration of symptoms: N/A Person calling: self Call patient at: on cell [phone] (cell) Was an appointment scheduled: No Closing statement: Results or non-symptom based questions: Thank you for calling [facility], your call will be returned within the next business day. Lorna Tolbert Costa Johnson LPN 03/17/2024 10:08 AM Signed Call placed to patient. She has a pic line and a wound vac. Patient has a brace on leg but has been doing transfers. Per patient her son will be home with her and has support from niece. Call placed to [facility]. They are able to except patient back. Cheryl Araujo APRN.MALI 03/17/2024 10:46 AM Signed Home Health Orders signed, please fax Cheryl Araujo APRN.Carlo Ott LPN 03/18/2024 5:25 PM Signed Fax sent Costa Johnson LPN 03/22/2024 4:22 PM Signed Orders faxed to [facility] Allergies As of Date: 03/16/2024 Noted Allergy Reaction PENICILLIN 06/05/2015 16 - Unknown Date Reviewed: 11/18/2023 Reviewed by: Carlo Miranda LPN - Fully Assessed Reason for Visit: Home Health Care Nurse Needed pati [Other] Primary Visit Diagnosis:Encounter for management of wound VAC [Z46.89] Other Visit Diagnosis:Status post PICC central line placement [Z95.828] Order(s):[facility] [[id number]] Order #: [id number]: 1 Prescriptions as of 03/22/2024 - levETIRAcetam (KEPPRA) 500 mg tablet Take 1 tablet by mouth two times a day. - famotidine (PEPCID) 20 mg tablet Take 1 tablet by mouth once daily. - clonazePAM (KLONOPIN) 0.5 mg tablet Take 1 tablet by mouth three times a day for 30 days. - promethazine (PHENERGAN) 25 mg tablet Take 1 tablet by mouth every 6 hours as needed. - sertraline (ZOLOFT) 100 mg tablet take 1 tablet by mouth once daily . WEAN DIRECTED - buPROPion SR (WELLBUTRIN SR) 150 mg 12 hr tablet take 1 tablet by mouth twice a day - baclofen 20 mg tablet Take 1 tablet by mouth three times a day. - levothyroxine (LEVOXYL) 75 mcg tablet Take 1 tablet by mouth once daily. Take on empty stomach. For thyroid. - cloNIDine HCl (CATAPRES) 0.1 mg tablet take 1 tablet by mouth three times a day - ibuprofen (MOTRIN) 600 mg tablet Take 1 tablet by mouth every 8 hours as needed for pain. - gabapentin (NEURONTIN) 600 mg tablet Take 1 tablet by mouth three times a day for 90 days. - white petrolatum (AQUAPHOR) 41 % topical ointment Apply to affected area as needed. - acetaminophen (TYLENOL EXTRA STRENGTH) 500 mg tablet Take 2 tablets by mouth every 6 hours as needed for pain. - lidocaine (LIDODERM) 5 % Apply 1 Patch as directed every 24 hours. Remove old patch after 12 hours Location: arm - Mirtazapine (REMERON) 7.5 mg tablet take 1 tablet by mouth at bedtime - Underpads 23 X 24 pads 1 Each as needed. - Foam Bandage (OPTIFOAM) 4 X 4 bndg Apply to affected area as needed. - amLODIPine (NORVASC) 5 mg tablet amlodipine 5 mg tablet - melatonin 5 mg tablet Take 5 mg by mouth. - methadone 5 mg/5 mL solution Take 5 mL by mouth once daily. Problem List As Of Date 03/16/2024 Noted Resolved Chronic anxiety [F41.9] 06/05/2015 Gastroesophageal reflux disease [K21.9] 06/05/2015 Chronic constipation [K59.09] 06/05/2015 Chronic nausea [R11.0] 06/05/2015 Hepatitis C antibody positive in blood [R76.8] 04/08/2017 Chronic hepatitis C without hepatic coma (HCC) *02/03/2019 Positive urine drug screen [R82.5] 04/30/2019 Debility [R53.81] 04/18/2021 Traumatic injury [T14.90XA] 06/27/2021 Chronic pain syndrome [G89.4] 06/27/2021 Multiple fractures [T07.XXXA] 06/27/2021 Seizures (HCC) [R56.9] 09/18/2021 Encounter Status:Closed by CARLO MIRANDA on 03/18/24 Normal [facility] MRSA isol Org specific cx Ql (Nose)Ordered By: Radha Bird on 03-16-2024 Interpretation and review of laboratory results Normal [facility] Staphylococcus sp identified Org specific cx Nom (Unsp spec) No Staphylococcus aureus isolated [facility] Bacteria identified Cx Nom ( Bld)on 03-15-2024 Interpretation and review of laboratory results Normal [facility] Basic metabolic 2000 panelon 03-15-2024 Anion gap [Moles/Vol] 11 mmol/L 10 - 2 0 mmol/L [facility] Calcium [Mass/Vol] 8.9 mg/dL 8.6 - 10. 6 mg/dL [facility] Chloride [Moles/Vol] 100 mmol/L 98 - 10 7 mmol/L [facility] CO2 [Moles/Vol] 30 mmol/L 21 - 32 mmol/L [facility] Creatinine [Mass/Vol] 0.51 mg/dL 0.50 - 1.05 mg/dL [facility] eGFR - PINF [facility] Comment on above: Calculations of bill mated GFR are performed using the 2020 CKD-EPI Study Refit equation without the race variable for the IDMS-Traceable creatinine methods. https://jasn.asnjournals.org/content/early/ASN.459336 5901 Glucose [Mass/Vol] 104 mg/dL High 74 - 99 mg/dL [facility] Interpretation and review of laboratory results Abnormal [facility] Potassium [Moles/Vol] 3.9 mmol/L 3.5 - 5.3 mmol/L [facility] Sodium [Moles/Vol] 137 mmol/L 136 - 145 mmol/L [facility] Urea nitrogen [Mass/Vol] 10 mg/dL 6 - 23 mg/dL [facility] Anion gap [Moles/Vol] 11 mmol/L Normal 10-20 [facility] Comment on above: Performed By: #### 2 4321-2 ####JANETH GRAFF L ([id number])[facility] ([facility])[id number] [place] [address] Calcium [Mass/Vol] 8.9 mg/dL Normal 8.6-10.6 [facility] Comment on above: Performed By: #### 2 4321-2 ####JANETH GRAFF L ([id number])[facility] ([facility])[address] [place] [address] Chloride [Moles/Vol] 100 mmol/L Normal 98-107 [facility] Comment on above: Performed By: #### 2 4321-2 ####JANETH CONNORMOTZER L ([id number])[facility] ([facility])[address] [place] [address] CO2 [Moles/Vol] 30 mmol/L Normal 21-32 [facility] Comment on above: Performed By: #### 2 4321-2 ####JANETH MCDONALDTZER L ([id number])[facility] ([facility])[address] [place] [address] Creatinine [Mass/Vol] 0.51 mg/dL Normal 0.50-1.05 [facility] Comment on above: Performed By: #### 2 4321-2 ####JANETH GRAFF L ([id number])[facility] ([facility])[address] [place] [address] GFR/1.73 sq M.predicted MDRD (S/P/Bld) [Vol rate/Area] mL/min/{1.73_m2} Normal >60 [facility] Comment on above: Result Comment: Calc ulations of estimated GFR are performed using the 2020 CKD-EPI Study Refit equation without the race variable for the IDMS-Traceable creatinine methods.https://jasn.asnjournals.org/content/early// N.9827809090 Performed By: #### 2 4321-2 ####JANETH RANGELER L ([id number])[facility] ([facility])[address] [place] [address] Glucose [Mass/Vol] 104 mg/dL High 74-99 [facility] Comment on above: Performed By: #### 2 4321-2 ####JANEHT CONNORMOPIEDADER L ([id number])[facility] ([facility])[address] [place] [address] Potassium [Moles/Vol] 3.9 mmol/L Normal 3.5-5.3 [facility] Comment on above: Performed By: #### 2 4321-2 ####JANETH CONNORMOTZER L ([id number])[facility] ([facility])[address] [place] [address] Sodium [Moles/Vol] 137 mmol/L Normal 136-145 [facility] Comment on above: Performed By: #### 2 4321-2 ####JANETH SCHMOTZER L ([id number])[facility] ([facility])[address] [place] [address] Urea nitrogen [Mass/Vol] 10 mg/dL Normal 6-23 [facility] Comment on above: Performed By: #### 2 4321-2 ####JANETH SCHMOTZER L ([id number])[facility] ([facility])[address] [place] [address] Bedside PICC Imagingon 03-15 These images are not reportable by radiology and will not be interpreted by Radiologists. IMAGING CBC panel Auto (Bld)on 03-15 Erythrocyte distribution width (RBC) [Ratio] 17.2 % High 11.5 - 14.5 % [facility] Hematocrit (Bld) [Volume fraction] 26.4 % Low 36.0 - 46.0 % [facility] Hemoglobin (Bld) [Mass/Vol] 7.8 g/dL Low 12.0 - 16.0 g/dL [facility] Interpretation and review of laboratory results Abnormal [facility] MCH (RBC) [Entitic mass] 26.7 pg 26.0 - 34.0 pg [facility] MCHC (RBC) [Mass/Vol] 29.5 g/dL Low 32.0 - 36.0 g/dL [facility] MCV (RBC) [Entitic vol] 90 fL 80 - 100 fL [facility] Nucleated RBC/100 WBC (Bld) [Ratio] 0.3 % High [facility] Platelets (Bld) [#/Vol] 402 10*3/uL [facility] RBC (Bld) [#/Vol] 2.92 10*6/uL Low [facility] WBC (Bld) [#/Vol] 13.9 10*3/uL High [facility] Erythrocyte distribution width (RBC) [Ratio] 17.2 % High 11.5-14.5 [facility] Comment on above: Performed By: #### 5 8410-2 ####JANETH Galo ([id number])[facility] ([facility])[id number] [place] [address] Hematocrit (Bld) [Volume fraction] 26.4 % Low 36.0-46.0 [facility] Comment on above: Performed By: #### 5 8410-2 ####JANETH Galo ([id number])[facility] ([facility])[address] [place] [address] Hemoglobin (Bld) [Mass/Vol] 7.8 g/dL Low 12.0-16.0 [facility] Comment on above: Performed By: #### 5 8410-2 ####JANETH Galo ([id number])[facility] ([facility])[address] [place] [address] MCH (RBC) [Entitic mass] 26.7 pg Normal 26.0-34.0 [facility] Comment on above: Performed By: #### 5 8410-2 ####JANETH Galo ([id number])[facility] ([facility])[address] [place] [address] MCHC (RBC) [Mass/Vol] 29.5 g/dL Low 32.0-36.0 [facility] Comment on above: Performed By: #### 5 8410-2 ####JANETH Galo ([id number])[facility] ([facility])[address] [place] [address] MCV (RBC) [Entitic vol] 90 fL Normal 80-100 [facility] Comment on above: Performed By: #### 5 8410-2 ####JANETH Galo ([id number])[facility] ([facility])[address] [place] [address] Nucleated RBC/100 WBC (Bld) [Ratio] 0.3 /100 WBCs High 0.0-0.0 [facility] Comment on above: Performed By: #### 5 8410-2 ####JANETH Galo ([id number])[facility] ([facility])[address] [place] [address] Platelets (Bld) [#/Vol] 402 x10*3/uL Normal 150-450 [facility] Comment on above: Performed By: #### 5 8410-2 ####JANETH Galo ([id number])[facility] ([facility])[address] [place] [address] RBC (Bld) [#/Vol] 2.92 x10*6/uL Low 4.00-5.20 [facility] Comment on above: Performed By: #### 5 8410-2 ####JANETH Galo ([id number])[facility])[address] [place] [address] WBC (Bld) [#/Vol] 13.9 x10*3/uL High 4.4-11.3 [facility] Comment on above: Performed By: #### 5 8410-2 ####JANETH Galo ([id number])[facility] ([facility])[address] [place] [address] CTA Thoracic and Abdominal A christelle and Bilateral Runoff Vessels WO and W contrast Fritz 03-15-2024 1. Intramedullary na il fixation across the right femorotibial joint with explantation of previous tibial hardware and antibiotic packing in the tibial medullary cavity. Osseous changes of chronic osteomyelitis. Wound VAC in place along the medial right tibia. 2. Few discrete collections in the right peripatellar region, which demonstrate locules of internal gas and may reflect abscesses or other postsurgical collections. 3. No acute arterial abnormality in the lower extremities. Arterial branches appear patent to the foot. 4. No significant abnormality of the lower chest, abdomen, or pelvis. I personally reviewed the image(s)/study and resident interpretation as stated by Dr. Mary Segovia MD. I agree with the findings as stated. This study was interpreted at [facility], [place], [place]. MACRO: None Signed by: Micha Waldron 03/15/2024 5:51 AM Dictation workstation: [id number] MMODAL Interpreted By: Micha Joyce, and Juliette Hernandez STUDY: CT ANGIO AORTA AND BILATERAL ILIOFEMORAL RUN OFF INCLUDING WITHOUT CONTRAST IF PERFORMED; 03/14/2024 4:21 pm INDICATION: Signs/Symptoms:Evaluation of RLE for possible flap. . COMPARISON: CT right tibia/fibula 03/12/2024 ACCESSION NUMBER(S): [id number] ORDERING CLINICIAN: CRUZ GOODMAN TECHNIQUE: High-resolution contrast-enhanced helical CT of the abdomen, pelvis and both lower extremities was performed, timed to the arterial phase. 3-D processing was performed by the physician on an independent work station, with MIP and volume-rendering techniques. A total of 90 ml of Omnipaque 350 was administered intravenously during the examination. The study was performed without oral contrast. The patient tolerated the study without complications. FINDINGS: ARTERIAL VASCULAR: AORTA: Normal caliber vessel with no significant focal stenosis or aneurysm. No significant atherosclerotic disease.. CELIAC TRUNK: No significant atherosclerosis or stenosis. SUPERIOR MESENTERIC ARTERY: No significant atherosclerosis or stenosis. INFERIOR MESENTERIC ARTERY: No significant atherosclerosis or stenosis. RIGHT RENAL ARTERY: There is a single right renal artery. No significant atherosclerosis or stenosis. LEFT RENAL ARTERY: There is a single left renal artery. No significant atherosclerosis or stenosis. RIGHT COMMON ILIAC ARTERY: No significant atherosclerosis or stenosis. RIGHT EXTERNAL ILIAC ARTERY: No significant atherosclerosis or stenosis. RIGHT INTERNAL ILIAC ARTERY: No significant atherosclerosis or stenosis. LEFT COMMON ILIAC ARTERY: No significant atherosclerosis or stenosis. LEFT EXTERNAL ILIAC ARTERY: No significant atherosclerosis or stenosis. LEFT INTERNAL ILIAC ARTERY: No significant atherosclerosis or stenosis. RUNOFF: RIGHT LEG: Right common femoral artery is widely patent with no significant stenosis. Right profunda femoris artery is widely patent with no significant stenosis. Right superficial femoral artery is widely patent with no significant stenosis. Right popliteal artery is widely patent with no significant stenosis. Right anterior tibial artery is widely patent with no significant stenosis. Dorsalis pedis is seen and normal in appearance. Right tibioperoneal trunk is widely patent with no significant stenosis. Right posterior tibial artery is widely patent with no significant stenosis. Posterior tibial artery is normal in caliber and seen to the foot. Right peroneal artery is widely patent with no significant stenosis. Postsurgical changes of intramedullary nail fixation of the right distal femur to the proximal tibia. Chronic osteomyelitis of the right tibia with antibiotic packing material along the medullary cavity. Wound VAC along medial right tibia with full-thickness skin surface defect of the underlying tibial medullary cavity. Diffuse edema of the right lower extremity. Collection in the right infrapatellar region measuring 2.7 x 6.6 cm (series 405, image 70), and an additional smaller collection with few locules of internal gas in the lateral suprapatellar region measuring 1.7 x 6.2 cm (image 63). LEFT LEG: Left common femoral artery is widely patent with no significant stenosis. Left profunda femoris artery is widely patent with no significant stenosis. Left superficial femoral artery is widely patent with no significant stenosis. Left popliteal artery is widely patent with no significant stenosis. Left anterior tibial artery is widely patent with no significant stenosis. Dorsalis pedis is seen and normal in appearance. Left tibioperoneal trunk is widely patent with no significant stenosis. Left posterior tibial artery is widely patent with no significant stenosis. Posterior tibial artery is normal in caliber and seen to the foot. Left peroneal artery is widely patent with no significant stenosis. No significant musculoskeletal abnormality of the left lower extremity. LOWER CHEST: Mild atelectasis of the bilateral lung bases. No significant abnormality of the lower chest. ABDOMEN/PELVIS: ABDOMINAL WALL: Small fat containing umbilical hernia. LIVER: No significant parenchymal abnormality. BILE DUCTS: No significant intrahepatic or extrahepatic dilatation. GALLBLADDER: No significant abnormality. PANCREAS: No significant abnormality. SPLEEN: No significant abnormality. ADRENALS: No significant abnormality. KIDNEYS, URETERS, BLADDER: No significant abnormality. Trace gas in the urinary bladder likely relates to prior catheterization. REPRODUCTIVE ORGANS: No significant abnormality. VESSELS: (See above). IVC filter in place. RETROPERITONEUM/LYMPH NODES: No enlarged lymph nodes. No acute retroperitoneal abnormality. BOWEL/MESENTERY/PERITONEU M: (more content not included)... MMODAL Micha Waldrno MD - 03/15/2024 Interpreted By: Micha Waldron, and Juliette Hernandez STUDY: CT ANGIO AORTA AND BILATERAL ILIOFEMORAL RUN OFF INCLUDING WITHOUT CONTRAST IF PERFORMED; 03/14/2024 4:21 pm INDICATION: Signs/Symptoms:Evaluation of RLE for possible flap. . COMPARISON: CT right tibia/fibula 03/12/2024 ACCESSION NUMBER(S): [id number] ORDERING CLINICIAN: CRUZ GOODMAN TECHNIQUE: High-resolution contrast-enhanced helical CT of the abdomen, pelvis and both lower extremities was performed, timed to the arterial phase. 3-D processing was performed by the physician on an independent work station, with MIP and volume-rendering techniques. A total of 90 ml of Omnipaque 350 was administered intravenously during the examination. The study was performed without oral contrast. The patient tolerated the study without complications. FINDINGS: ARTERIAL VASCULAR: AORTA: Normal caliber vessel with no significant focal stenosis or aneurysm. No significant atherosclerotic disease.. CELIAC TRUNK: No significant atherosclerosis or stenosis. SUPERIOR MESENTERIC ARTERY: No significant atherosclerosis or stenosis. INFERIOR MESENTERIC ARTERY: No significant atherosclerosis or stenosis. RIGHT RENAL ARTERY: There is a single right renal artery. No significant atherosclerosis or stenosis. LEFT RENAL ARTERY: There is a single left renal artery. No significant atherosclerosis or stenosis. RIGHT COMMON ILIAC ARTERY: No significant atherosclerosis or stenosis. RIGHT EXTERNAL ILIAC ARTERY: No significant atherosclerosis or stenosis. RIGHT INTERNAL ILIAC ARTERY: No significant atherosclerosis or stenosis. LEFT COMMON ILIAC ARTERY: No significant atherosclerosis or stenosis. LEFT EXTERNAL ILIAC ARTERY: No significant atherosclerosis or stenosis. LEFT INTERNAL ILIAC ARTERY: No significant atherosclerosis or stenosis. RUNOFF: RIGHT LEG: Right common femoral artery is widely patent with no significant stenosis. Right profunda femoris artery is widely patent with no significant stenosis. Right superficial femoral artery is widely patent with no significant stenosis. Right popliteal artery is widely patent with no significant stenosis. Right anterior tibial artery is widely patent with no significant stenosis. Dorsalis pedis is seen and normal in appearance. Right tibioperoneal trunk is widely patent with no significant stenosis. Right posterior tibial artery is widely patent with no significant stenosis. Posterior tibial artery is normal in caliber and seen to the foot. Right peroneal artery is widely patent with no significant stenosis. Postsurgical changes of intramedullary nail fixation of the right distal femur to the proximal tibia. Chronic osteomyelitis of the right tibia with antibiotic packing material along the medullary cavity. Wound VAC along medial right tibia with full-thickness skin surface defect of the underlying tibial medullary cavity. Diffuse edema of the right lower extremity. Collection in the right infrapatellar region measuring 2.7 x 6.6 cm (series 405, image 70), and an additional smaller collection with few locules of internal gas in the lateral suprapatellar region measuring 1.7 x 6.2 cm (image 63). LEFT LEG: Left common femoral artery is widely patent with no significant stenosis. Left profunda femoris artery is widely patent with no significant stenosis. Left superficial femoral artery is widely patent with no significant stenosis. Left popliteal artery is widely patent with no significant stenosis. Left anterior tibial artery is widely patent with no significant stenosis. Dorsalis pedis is seen and normal in appearance. Left tibioperoneal trunk is widely patent with no significant stenosis. Left posterior tibial artery is widely patent with no significant stenosis. Posterior tibial artery is normal in caliber and seen to the foot. Left peroneal artery is widely patent with no significant stenosis. No significant musculoskeletal abnormality of the left lower extremity. LOWER CHEST: Mild atelectasis of the bilateral lung bases. No significant abnormality of the lower chest. ABDOMEN/PELVIS: ABDOMINAL WALL: Small fat containing umbilical hernia. LIVER: No significant parenchymal abnormality. BILE DUCTS: No significant intrahepatic or extrahepatic dilatation. GALLBLADDER: No significant abnormality. PANCREAS: No significant abnormality. SPLEEN: No significant abnormality. ADRENALS: No significant abnormality. KIDNEYS, URETERS, BLADDER: No significant abnormality. Trace gas in the urinary bladder likely relates to prior catheterization. REPRODUCTIVE ORGANS: No significant abnormality. VESSELS: (See above). IVC filter in place. RETROPERITONEUM/LYMPH NODES: No enlarged lymph nodes. No acute retroperitoneal abnormality. (more content not included)... [facility] Work Phone: CTA Thoracic and Abdominal A christelle and Bilateral Runoff Vessels WO and W contrast IVOrdered By: Micha Waldron on 03-15-2024 [facility] Work Phone: Laboratory - Microbiology an d Antimicrobial susceptibilityon 03-15-2024 Bacteria identified Cx Nom (Bld) No growth at 4 days - FINAL REPORT [facility] PICC >5 YR BEDSIDE IMAGINGon 03-15-2024 PICC >5 YR BEDSIDE IMAGING These images are not reportable by radiology and will not be interpreted by Radiologists. Normal [facility] Staphylococcus aureus.methic illin resistant isolateon 03-15-2024 MRSA isol Org specific cx Ql (Nose) Normal [facility] Comment on above: Performed By: #### 5 2969-3 ####JANETH Galo ([id number])[facility] ([facility])[address] [place] [address] Basic metabolic 2000 panelon 03-14-2024 Anion gap [Moles/Vol] 11 mmol/L 10 - 2 0 mmol/L [facility] Calcium [Mass/Vol] 8.9 mg/dL 8.6 - 10. 6 mg/dL [facility] Chloride [Moles/Vol] 103 mmol/L 98 - 10 7 mmol/L [facility] CO2 [Moles/Vol] 30 mmol/L 21 - 32 mmol/L [facility] Creatinine [Mass/Vol] 0.69 mg/dL 0.50 - 1.05 mg/dL [facility] eGFR - PINF [facility] Comment on above: Calculations of bill mated GFR are performed using the 2020 CKD-EPI Study Refit equation without the race variable for the IDMS-Traceable creatinine methods. https://jasn.asnjournals.org/content//ASN.471956 4385 Glucose [Mass/Vol] 104 mg/dL High 74 - 99 mg/dL [facility] Interpretation and review of laboratory results Abnormal [facility] Potassium [Moles/Vol] 4.9 mmol/L 3.5 - 5.3 mmol/L [facility] Sodium [Moles/Vol] 139 mmol/L 136 - 145 mmol/L [facility] Urea nitrogen [Mass/Vol] 10 mg/dL 6 - 23 mg/dL [facility] Anion gap [Moles/Vol] 11 mmol/L Normal 10-20 [facility] Comment on above: Performed By: #### 2 4321-2 ####JANETH Galo ([id number])[facility] ([facility])[address] [place] [address] Calcium [Mass/Vol] 8.9 mg/dL Normal 8.6-10.6 [facility] Comment on above: Performed By: #### 2 4321-2 ####JANETH GRAFF L ([id number])[facility] ([facility])[address] [place] [address] Chloride [Moles/Vol] 103 mmol/L Normal 98-107 [facility] Comment on above: Performed By: #### 2 4321-2 ####JANETH GRAFF L ([id number])[facility] ([facility])[address] [place] [address] CO2 [Moles/Vol] 30 mmol/L Normal 21-32 [facility] Comment on above: Performed By: #### 2 4321-2 ####JANETH GRAFF L ([id number])[facility] ([facility])[address] [place] [address] Creatinine [Mass/Vol] 0.69 mg/dL Normal 0.50-1.05 [facility] Comment on above: Performed By: #### 2 4321-2 ####JANETH Galo ([id number])[facility] ([facility])[address] [place] [address] GFR/1.73 sq M.predicted MDRD (S/P/Bld) [Vol rate/Area] mL/min/{1.73_m2} Normal >60 [facility] Comment on above: Result Comment: Calc ulations of estimated GFR are performed using the 2020 CKD-EPI Study Refit equation without the race variable for the IDMS-Traceable creatinine methods.https://jasn.asnjournals.org/content/early// N.7407921891 Performed By: #### 2 4321-2 ####JANETH Galo ([id number])[facility] ([facility])[address] [place] [address] Glucose [Mass/Vol] 104 mg/dL High 74-99 [facility] Comment on above: Performed By: #### 2 4321-2 ####JANETH GRAFF L ([id number])[facility] ([facility])[address] [place] [address] Potassium [Moles/Vol] 4.9 mmol/L Normal 3.5-5.3 [facility] Comment on above: Performed By: #### 2 4321-2 ####JANETH GRAFF L ([id number])[facility] ([facility])[address] [place] [address] Sodium [Moles/Vol] 139 mmol/L Normal 136-145 [facility] Comment on above: Performed By: #### 2 4321-2 ####JANETH CONNORMOSARITA L ([id number])[facility] ([facility])[address] [place] [address] Urea nitrogen [Mass/Vol] 10 mg/dL Normal 6-23 [facility] Comment on above: Performed By: #### 2 4321-2 ####JANETH GRAFF L ([id number])[facility] ([facility])[address] [place] [address] CBC panel Auto (Bld)on 03-14 Erythrocyte distribution width (RBC) [Ratio] 17.3 % High 11.5 - 14.5 % [facility] Hematocrit (Bld) [Volume fraction] 27.6 % Low 36.0 - 46.0 % [facility] Hemoglobin (Bld) [Mass/Vol] 7.9 g/dL Low 12.0 - 16.0 g/dL [facility] Interpretation and review of laboratory results Abnormal [facility] MCH (RBC) [Entitic mass] 26.8 pg 26.0 - 34.0 pg [facility] MCHC (RBC) [Mass/Vol] 28.6 g/dL Low 32.0 - 36.0 g/dL [facility] MCV (RBC) [Entitic vol] 94 fL 80 - 100 fL [facility] Nucleated RBC/100 WBC (Bld) [Ratio] 0.2 % High [facility] Platelets (Bld) [#/Vol] 305 10*3/uL [facility] RBC (Bld) [#/Vol] 2.95 10*6/uL Low [facility] WBC (Bld) [#/Vol] 14.4 10*3/uL High [facility] Erythrocyte distribution width (RBC) [Ratio] 17.3 % High 11.5-14.5 [facility] Comment on above: Performed By: #### 5 8410-2 ####JANETH Galo ([id number])[facility] ([facility])[id number] [place] [address] Hematocrit (Bld) [Volume fraction] 27.6 % Low 36.0-46.0 [facility] Comment on above: Performed By: #### 5 8410-2 ####JANETH Galo ([id number])[facility] ([facility])[id number] [place] [address] Hemoglobin (Bld) [Mass/Vol] 7.9 g/dL Low 12.0-16.0 [facility] Comment on above: Performed By: #### 5 8410-2 ####JANETH Galo ([id number])[facility] ([facility])[address] [place] [address] MCH (RBC) [Entitic mass] 26.8 pg Normal 26.0-34.0 [facility] Comment on above: Performed By: #### 5 8410-2 ####JANETH Galo ([id number])[facility] ([facility])[address] [place] [address] MCHC (RBC) [Mass/Vol] 28.6 g/dL Low 32.0-36.0 [facility] Comment on above: Performed By: #### 5 8410-2 ####JANETH Galo ([id number])[facility] ([facility])[address] [place] [address] MCV (RBC) [Entitic vol] 94 fL Normal 80-100 [facility] Comment on above: Performed By: #### 5 8410-2 ####JANETH Galo ([id number])[facility] ([facility])[address] [place] [address] Nucleated RBC/100 WBC (Bld) [Ratio] 0.2 /100 WBCs High 0.0-0.0 [facility] Comment on above: Performed By: #### 5 8410-2 ####JANETH Galo ([id number])[facility] ([facility])[address] [place] [address] Platelets (Bld) [#/Vol] 305 x10*3/uL Normal 150-450 [facility] Comment on above: Performed By: #### 5 8410-2 ####JANETH Galo ([id number])[facility] ([facility])[address] [place] [address] RBC (Bld) [#/Vol] 2.95 x10*6/uL Low 4.00-5.20 [facility] Comment on above: Performed By: #### 5 8410-2 ####JANETH Galo ([id number])[facility] ([facility])[address] [place] [address] WBC (Bld) [#/Vol] 14.4 x10*3/uL High 4.4-11.3 [facility] Comment on above: Performed By: #### 5 8410-2 ####JANETH Galo ([id number])[facility] ([facility])[address] [place] [id number] ANGIO AORTA AND BILATERAL ILIOFEMORAL RUN OFF INCLUDING WITHOUT CONTRAST IF PERFORMEDon 03-14-2024 CT ANGIO AORTA AND BILATERAL ILIOFEMORAL RUN OFF INCLUDING WITHOUT CONTRAST IF PERFORMED Normal [facility] CTA Thoracic and Abdominal A christelle and Bilateral Runoff Vessels WO and W contrast Fritz 03-14-2024 Radiology Study observation (narrative) [facility] Work Phone: Basic metabolic 2000 panelon 03-13-2024 Anion gap [Moles/Vol] 12 mmol/L 10 - 2 0 mmol/L [facility] Calcium [Mass/Vol] 8.4 mg/dL Low 8.6 - 10. 6 mg/dL [facility] Chloride [Moles/Vol] 103 mmol/L 98 - 10 7 mmol/L [facility] CO2 [Moles/Vol] 27 mmol/L 21 - 32 mmol/L [facility] Creatinine [Mass/Vol] 0.94 mg/dL 0.50 - 1.05 mg/dL [facility] GFR/1.73 sq M.predicted among non-blacks MDRD (S/P/Bld) [Vol rate/Area] 73 mL/min/{1.73_m2} - PINF [facility] Comment on above: Calculations of bill mated GFR are performed using the 2020 CKD-EPI Study Refit equation without the race variable for the IDMS-Traceable creatinine methods. https://jasn.asnjournals.org/content/early//ASN.799237 0410 Glucose [Mass/Vol] 126 mg/dL High 74 - 99 mg/dL [facility] Interpretation and review of laboratory results Abnormal [facility] Potassium [Moles/Vol] 4.4 mmol/L 3.5 - 5.3 mmol/L [facility] Sodium [Moles/Vol] 138 mmol/L 136 - 145 mmol/L [facility] Urea nitrogen [Mass/Vol] 14 mg/dL 6 - 23 mg/dL [facility] Anion gap [Moles/Vol] 12 mmol/L Normal 10-20 [facility] Comment on above: Performed By: #### 2 4321-2 ####JANETH MCDONALDTZER L ([id number])[facility] ([facility])[address] [place] [address] Calcium [Mass/Vol] 8.4 mg/dL Low 8.6-10.6 [facility] Comment on above: Performed By: #### 2 4321-2 ####JANETH CONNORMOTZER L ([id number])[facility] ([facility])[address] [place] [address] Chloride [Moles/Vol] 103 mmol/L Normal 98-107 [facility] Comment on above: Performed By: #### 2 4321-2 ####JANETH SCHMOTZER L ([id number])[facility] ([facility])[address] [place] [address] CO2 [Moles/Vol] 27 mmol/L Normal 21-32 [facility] Comment on above: Performed By: #### 2 4321-2 ####JANETH CONNORMOTZER L ([id number])[facility] ([facility])[address] [place] [address] Creatinine [Mass/Vol] 0.94 mg/dL Normal 0.50-1.05 [facility] Comment on above: Performed By: #### 2 4321-2 ####JANETH CONNORMOTZER L ([id number])[facility] ([facility])[address] [place] [address] Glomerular filtration rate/1.73 sq M.predicted 73 mL/min/1.73m*2 Normal >60 [facility] Comment on above: Result Comment: Calc ulations of estimated GFR are performed using the 2020 CKD-EPI Study Refit equation without the race variable for the IDMS-Traceable creatinine methods.https://jasn.asnjournals.org/content// N.8785189918 Performed By: #### 2 4321-2 ####JANETH Galo ([id number])[facility] ([facility])[address] [place] [address] Glucose [Mass/Vol] 126 mg/dL High 74-99 [facility] Comment on above: Performed By: #### 2 4321-2 ####JANETH Galo ([id number])[facility] ([facility])[address] [place] [address] Potassium [Moles/Vol] 4.4 mmol/L Normal 3.5-5.3 [facility] Comment on above: Performed By: #### 2 4321-2 ####JANETH Galo ([id number])[facility] ([facility])[address] [place] [address] Sodium [Moles/Vol] 138 mmol/L Normal 136-145 [facility] Comment on above: Performed By: #### 2 4321-2 ####JANETH Galo ([id number])[facility] ([facility])[address] [place] [address] Urea nitrogen [Mass/Vol] 14 mg/dL Normal 6-23 [facility] Comment on above: Performed By: #### 2 4321-2 ####JANETH Galo ([id number])[facility] ([facility])[address] [place] [address] CBC panel Auto (Bld)on 03-13 Erythrocyte distribution width (RBC) [Ratio] 17.2 % High 11.5 - 14.5 % [facility] Hematocrit (Bld) [Volume fraction] 28.8 % Low 36.0 - 46.0 % [facility] Hemoglobin (Bld) [Mass/Vol] 8.1 g/dL Low 12.0 - 16.0 g/dL [facility] Interpretation and review of laboratory results Abnormal [facility] MCH (RBC) [Entitic mass] 26.6 pg 26.0 - 34.0 pg [facility] MCHC (RBC) [Mass/Vol] 28.1 g/dL Low 32.0 - 36.0 g/dL [facility] MCV (RBC) [Entitic vol] 94 fL 80 - 100 fL [facility] Nucleated RBC/100 WBC (Bld) [Ratio] 0 % [facility] Platelets (Bld) [#/Vol] 344 10*3/uL [facility] RBC (Bld) [#/Vol] 3.05 10*6/uL Low [facility] WBC (Bld) [#/Vol] 20.1 10*3/uL High [facility] Erythrocyte distribution width (RBC) [Ratio] 17.2 % High 11.5-14.5 [facility] Comment on above: Performed By: #### 5 8410-2 ####JANETH Galo ([id number])[facility] ([facility])[address] [place] [address] Hematocrit (Bld) [Volume fraction] 28.8 % Low 36.0-46.0 [facility] Comment on above: Performed By: #### 5 8410-2 ####JANETH Galo ([id number])[facility] ([facility])[address] [place] [address] Hemoglobin (Bld) [Mass/Vol] 8.1 g/dL Low 12.0-16.0 [facility] Comment on above: Performed By: #### 5 8410-2 ####JANETH Galo ([id number])[facility] ([facility])[address] [place] [address] MCH (RBC) [Entitic mass] 26.6 pg Normal 26.0-34.0 [facility] Comment on above: Performed By: #### 5 8410-2 ####JANETH Galo ([id number])[facility] ([facility])[address] [place] [address] MCHC (RBC) [Mass/Vol] 28.1 g/dL Low 32.0-36.0 [facility] Comment on above: Performed By: #### 5 8410-2 ####JANETH Galo ([id number])[facility] ([facility])[address] [place] [address] MCV (RBC) [Entitic vol] 94 fL Normal 80-100 [facility] Comment on above: Performed By: #### 5 8410-2 ####JANETH Galo ([id number])[facility] ([facility])[address] [place] [address] Nucleated RBC/100 WBC (Bld) [Ratio] 0.0 /100 WBCs Normal 0.0-0.0 [facility] Comment on above: Performed By: #### 5 8410-2 ####JANETH Galo ([id number])[facility] ([facility])[address] [place] [address] Platelets (Bld) [#/Vol] 344 x10*3/uL Normal 150-450 [facility] Comment on above: Performed By: #### 5 8410-2 ####JANETH Galo ([id number])[facility] ([facility])[address] [place] [address] RBC (Bld) [#/Vol] 3.05 x10*6/uL Low 4.00-5.20 [facility] Comment on above: Performed By: #### 5 8410-2 ####JANETH Galo ([id number])[facility] ([facility])[address] [place] [address] WBC (Bld) [#/Vol] 20.1 x10*3/uL High 4.4-11.3 [facility] Comment on above: Performed By: #### 5 8410-2 ####JANETH Galo ([id number])[facility] ([facility])[address] [place] [address] No Panel Informationon 03-13 [facility] Vancomycinon 03-13-2024 Vancomycin [Mass/Vol] 12.9 ug/mL 5.0 - 20.0 ug/mL [facility] Vancomycin [Mass/Vol] 12.9 ug/mL Normal 5.0-20.0 [facility] Comment on above: Order Comment: Vanco mycin levels can be monitored according to area under the curve (AUC) or concentration (ug/mL). The preferred monitoring strategy is determined by the patient's renal function and indication for therapy.For AUC monitoring, a random vancomycin level should be interpreted in the context of AUC rather than the concentration at a single point in time.For concentration monitoring, a trough concentration drawn immediately prior to the next dose is preferred.Therapeutic ranges using concentration-guided results:Peak (all ages): 30.0-40.0 ug/mLTrough (all ages): 10.0-20.0 ug/mL Performed By: #### 2 0578-1 ####JANETH Galo ([id number])[facility] ([facility])[address] [place] [address] Vancomycin [Mass/Vol]on 02-18 Interpretation and review of laboratory results [facility] Vancomycin levels can be monitored according to area under the curve (AUC) or concentration (ug/mL). The preferred monitoring strategy is determined by the patient's renal function and indication for therapy. For AUC monitoring, a random vancomycin level should be interpreted in the context of AUC rather than the concentration at a single point in time. For concentration monitoring, a trough concentration drawn immediately prior to the next dose is preferred. Therapeutic ranges using concentration-guided results: Peak (all ages): 30.0-40.0 ug/mL Trough (all ages): 10.0-20.0 ug/mL [facility] Bacteria identifiedon 2024 Bacteria identified Cx Nom (Unsp spec) [facility] Comment on above: Performed By: #### 6 463-4 ####JANETH Galo ([id number])[facility] ([facility])[address] [place] [address] Bacteria identified Cx Nom (Unsp spec) [facility] Comment on above: Performed By: #### 6 463-4 ####JANETH Galo ([id number])[facility] ([facility])[address] [place] [address] Bacteria identified Cx Nom (Unsp spec) [facility] Comment on above: Performed By: #### 6 463-4 ####JANETH Galo ([id number])[facility] ([facility])[address] [place] [address] CT Lower leg - right WO timoteo shaw 03-12-2024 1. Extensive postsur gical changes as detailed above, with remote fracture deformities of the tibia and fibula. No acute fracture is evident. Persistent collapse of the medial tibial plateau subchondral bone plate with subjacent lucency. 2. Soft tissue deformity of the anteromedial lower leg which overlies the mid to distal tibial diaphyseal fracture is again seen, however is without definitive evidence of extension to the bony surface. Relative paucity of soft tissue overlying the anterior aspect of the lateral femoral condyle without underlying osseous erosive change. 3. Small knee joint effusion. 4. Patella Jyoti. This is a preliminary resident report intended to identify and communicate acutely critical findings as it relates to the indication for the study. A full attending report will follow. MACRO: none Signed by: Siddharth Frankel 03/12/2024 12:56 PM Dictation workstation: [id number] MMODAL Interpreted By: Siddharth Jang, and Carol Boo STUDY: CT of the right tibia/fibula without intravenous contrast dated 03/12/2024. INDICATION: Signs/Symptoms:chronic osteomyelitis COMPARISON: None. ACCESSION NUMBER(S): [id number] ORDERING CLINICIAN: CRUZ GOODMAN TECHNIQUE: Axial CT of the right tibia/fibula was performed without intravenous contrast. Sagittal and coronal reformats were obtained. FINDINGS: OSSEOUS STRUCTURES AND JOINTS: No acute fracture is evident. Fracture deformities of the mid to distal tibial diaphysis, fibular head, and mid to distal fibular shaft are not significantly changed when compared to prior. Persistent fracture cleft of the tibia. Postsurgical changes of tibial intramedullary nail with a single proximal interlocking screw and two distal interlocking screws. Interval removal of lateral plate and screw fixation. Innumerable ghost tracts are seen throughout the proximal tibia. Again seen is prominent concavity in the medial tibial plateau with prominent gap to the subchondral bone plate measuring approximately 3.8 cm in depth. Diffuse demineralization. Patella Jyoti is again noted. Small knee joint effusion. ASSOCIATED SOFT TISSUES: Again seen is a muscular cutaneous flap overlying the knee. Mild generalized atrophy of the musculature. Similar skin thickening of the anteromedial lower leg with soft tissue defect overlying the mid to distal tibial diaphyseal comminuted fracture. No definitive communication with the osseous structures in the hemisphere. No soft tissue abscesses are noted. Relative paucity of soft tissue overlying the anterior aspect the lateral femoral condyle. [facility] MMODAL Siddharth Frankel MD - 03/12/2024 Interpreted By: Siddharth Frankel and Bartolomei Aguilar Christopher STUDY: CT of the right tibia/fibula without intravenous contrast dated 03/12/2024. INDICATION: Signs/Symptoms:chronic osteomyelitis COMPARISON: None. ACCESSION NUMBER(S): [id number] ORDERING CLINICIAN: CRUZ GOODMAN TECHNIQUE: Axial CT of the right tibia/fibula was performed without intravenous contrast. Sagittal and coronal reformats were obtained. FINDINGS: OSSEOUS STRUCTURES AND JOINTS: No acute fracture is evident. Fracture deformities of the mid to distal tibial diaphysis, fibular head, and mid to distal fibular shaft are not significantly changed when compared to prior. Persistent fracture cleft of the tibia. Postsurgical changes of tibial intramedullary nail with a single proximal interlocking screw and two distal interlocking screws. Interval removal of lateral plate and screw fixation. Innumerable ghost tracts are seen throughout the proximal tibia. Again seen is prominent concavity in the medial tibial plateau with prominent gap to the subchondral bone plate measuring approximately 3.8 cm in depth. Diffuse demineralization. Patella [place] is again noted. Small knee joint effusion. ASSOCIATED SOFT TISSUES: Again seen is a muscular cutaneous flap overlying the knee. Mild generalized atrophy of the musculature. Similar skin thickening of the anteromedial lower leg with soft tissue defect overlying the mid to distal tibial diaphyseal comminuted fracture. No definitive communication with the osseous structures in the hemisphere. No soft tissue abscesses are noted. Relative paucity of soft tissue overlying the anterior aspect the lateral femoral condyle. IMPRESSION: 1. Extensive postsurgical changes as detailed above, with remote fracture deformities of the tibia and fibula. No acute fracture is evident. Persistent collapse of the medial tibial plateau subchondral bone plate with subjacent lucency. 2. Soft tissue deformity of the anteromedial lower leg which overlies the mid to distal tibial diaphyseal fracture is again seen, however is without definitive evidence of extension to the bony surface. Relative paucity of soft tissue overlying the anterior aspect of the lateral femoral condyle without underlying osseous erosive change. 3. Small knee joint effusion. 4. Patella Jyoti. This is a preliminary resident report intended to identify and communicate acutely critical findings as it relates to the indication for the study. A full attending report will follow. MACRO: none Signed by: Siddharth Frankel 03/12/2024 12:56 PM Dictation workstation: [id number] [facility] Work Phone: Radiology Study observation (narrative) [facility] Work Phone: CT Lower leg - right WO cont rastOrdered By: Siddharth Frankel on 03-12-2024 [facility] Work Phone: ECG 12-LEADon 03-12-2024 ECG 12-LEAD Ventricular Rate 72 Atrial Rate 72 P-R Interval 166 QRS Duration 88 Q-T Interval 372 QTC Calculation(Bazett) 407 P [place] 56 R [place] 37 T [place] 42 QRS Count 12 Q Onset 214 P Onset 131 P Offset 193 T Offset 400 QTC Fred[place] 395 Diagnosis Normal sinus rhythm with sinus arrhythmia Normal ECG When compared with ECG of 12-MAR-2024 00:10, No significant change was found Confirmed by Moe Cason ([id number]) on 03/27/2024 1:37:13 PM Normal [facility] FL FLUORO IMAGES NO CHARGEon 03-12-2024 FL FLUORO IMAGES NO CHARGE These images are not reportable by radiology and will not be interpreted by Radiologists. Normal [facility] Comment on above: Order Comment: On ca ll to OR Fungus identifiedon 03-12-19 Fungus identified Cx Nom (Unsp spec) [facility] Comment on above: Performed By: #### 5 80-1 ####JANETH Galo ([id number])[facility] ([facility])[address] [place] [address] Fungus identified Cx Nom (Unsp spec) Normal [facility] Comment on above: Performed By: #### 5 80-1 ####JANETH Galo ([id number])[facility] ([facility])[address] [place] [address] Fungus identified Cx Nom (Unsp spec) [facility] Comment on above: Performed By: #### 5 80-1 ####JANETH Galo ([id number])[facility] ([facility])[address] [place] [address] XR Chest Single viewon 03-12 1. No evidence of ac chilkoot cardiopulmonary process. I personally reviewed the images/study and I agree with the findings as stated by Carlos Wren MD (resident) . This study was interpreted at [place], [place]. MACRO: None Signed by: Osmel Viera 03/12/2024 7:30 AM Dictation workstation: [id number] MMODAL Interpreted By: Osmel Viera and Velez-Martinez Osvaldo STUDY: XR CHEST 1 VIEW; 03/11/2024 7:47 pm INDICATION: Signs/Symptoms:preop. COMPARISON: None. ACCESSION NUMBER(S): [id number] ORDERING CLINICIAN: CRUZ GOODMAN FINDINGS: AP radiograph of the chest was provided. CARDIOMEDIASTINAL SILHOUETTE: Cardiomediastinal silhouette is normal in size and configuration. LUNGS: Lungs are clear. ABDOMEN: No remarkable upper abdominal findings. BONES: No acute osseous abnormality. MMODAL Osmel Viera MD PhD - 03/12/2024 Interpreted By: Osmel Viera and Velez-Martinez Osvaldo STUDY: XR CHEST 1 VIEW; 03/11/2024 7:47 pm INDICATION: Signs/Symptoms:preop. COMPARISON: None. ACCESSION NUMBER(S): [id number] ORDERING CLINICIAN: CRUZ GOODMAN FINDINGS: AP radiograph of the chest was provided. CARDIOMEDIASTINAL SILHOUETTE: Cardiomediastinal silhouette is normal in size and configuration. LUNGS: Lungs are clear. ABDOMEN: No remarkable upper abdominal findings. BONES: No acute osseous abnormality. IMPRESSION: 1. No evidence of acute cardiopulmonary process. I personally reviewed the images/study and I agree with the findings as stated by Carlos Wren MD (resident) . This study was interpreted at [facility], [place], [place]. MACRO: None Signed by: Osmel Viera 03/12/2024 7:30 AM Dictation workstation: [id number] [facility] Work Phone: XR Chest Single viewOrdered By: Osmel Viera on 03-12-2024 [facility] Work Phone: XR tomography Unspecified reynaldo dy regionon 03-12-2024 These images are not reportable by radiology and will not be interpreted by Radiologists. IMAGING Bacteria identifiedon 2024 Bacteria identified Cx Nom (Bld) Normal [facility] Comment on above: Performed By: #### 6 00-7 ####JANETH Galo ([id number])[facility] ([facility])[address] [place] [address] Basic metabolic 2000 panelon 03-11-2024 Anion gap [Moles/Vol] 11 mmol/L 10 - 2 0 mmol/L [facility] Calcium [Mass/Vol] 9.5 mg/dL 8.6 - 10. 6 mg/dL [facility] Chloride [Moles/Vol] 100 mmol/L 98 - 10 7 mmol/L [facility] CO2 [Moles/Vol] 28 mmol/L 21 - 32 mmol/L [facility] Creatinine [Mass/Vol] 0.79 mg/dL 0.50 - 1.05 mg/dL [facility] GFR/1.73 sq M.predicted among non-blacks MDRD (S/P/Bld) [Vol rate/Area] 90 mL/min/{1.73_m2} - PINF [facility] Comment on above: Calculations of bill mated GFR are performed using the 2020 CKD-EPI Study Refit equation without the race variable for the IDMS-Traceable creatinine methods. https://jasn.asnjournals.org/content//ASN.591071 8894 Glucose [Mass/Vol] 95 mg/dL 74 - 99 mg/dL [facility] Potassium [Moles/Vol] 4.6 mmol/L 3.5 - 5.3 mmol/L [facility] Sodium [Moles/Vol] 134 mmol/L Low 136 - 145 mmol/L [facility] Urea nitrogen [Mass/Vol] 11 mg/dL 6 - 23 mg/dL [facility] Anion gap [Moles/Vol] 11 mmol/L Normal 10-20 [facility] Comment on above: Performed By: #### 2 4321-2 ####JANETH Galo ([id number])[facility] ([facility])[address] [place] [address] Calcium [Mass/Vol] 9.5 mg/dL Normal 8.6-10.6 [facility] Comment on above: Performed By: #### 2 4321-2 ####JANETH Galo ([id number])[facility] ([facility])[address] [place] [address] Chloride [Moles/Vol] 100 mmol/L Normal 98-107 [facility] Comment on above: Performed By: #### 2 4321-2 ####JANETH GRAFF L ([id number])[facility] ([facility])[address] [place] [address] CO2 [Moles/Vol] 28 mmol/L Normal 21-32 [facility] Comment on above: Performed By: #### 2 4321-2 ####JANETH GRAFF L ([id number])[facility] ([facility])[address] [place] [address] Creatinine [Mass/Vol] 0.79 mg/dL Normal 0.50-1.05 [facility] Comment on above: Performed By: #### 2 4321-2 ####JANETH GRAFF L ([id number])[facility] ([facility])[address] [place] [address] Glomerular filtration rate/1.73 sq M.predicted 90 mL/min/1.73m*2 Normal >60 [facility] Comment on above: Result Comment: Calc ulations of estimated GFR are performed using the 2020 CKD-EPI Study Refit equation without the race variable for the IDMS-Traceable creatinine methods.https://jasn.asnjournals.org/content/early/ N.6474541770 Performed By: #### 2 4321-2 ####JANETH Galo ([id number])[facility] ([facility])[address] [place] [address] Glucose [Mass/Vol] 95 mg/dL Normal 74-99 [facility] Comment on above: Performed By: #### 2 4321-2 ####JANETH Galo ([id number])[facility] ([facility])[address] [place] [address] Potassium [Moles/Vol] 4.6 mmol/L Normal 3.5-5.3 [facility] Comment on above: Performed By: #### 2 4321-2 ####JANETH Galo ([id number])[facility] ([facility])[address] [place] [address] Sodium [Moles/Vol] 134 mmol/L Low 136-145 [facility] Comment on above: Performed By: #### 2 4321-2 ####JANETH Galo ([id number])[facility] ([facility])[address] [place] [address] Urea nitrogen [Mass/Vol] 11 mg/dL Normal 6-23 [facility] Comment on above: Performed By: #### 2 4321-2 ####JANETH Galo ([id number])[facility] ([facility])[address] [place] [address] Blood type and Indirect anti body screen panel (Bld)on 03-11-2024 ABO group Nom (Bld) A Normal [facility] Comment on above: Performed By: #### 3 4532-2 ####JANETH Galo ([id number])[facility] ([facility] [place] [address] Blood group antibody screen [facility]l Negative [facility] Comment on above: Performed By: #### 3 4532-2 ####JANETH Galo ([id number])[facility] ([facility])[address] [place] [address] D Ag Ql (Bld) Positive Normal [facility] Comment on above: Performed By: #### 3 4532-2 ####JANETH Galo ([id number])[facility] ([facility])[address] [place] [address] C reactive proteinon 025 CRP [Mass/Vol] 2.53 mg/dL High <1.00 [facility] Comment on above: Performed By: #### 1 988-5 ####JANETH Galo ([id number])[facility] ([facility])[address] [place] [address] C-reactive proteinon 025 CRP [Mass/Vol] 2.53 mg/dL High NINF - 1.00 mg/dL [facility] CBC W Auto Differential pane l (Bld)on 03-11-2024 Basophils (Bld) [#/Vol] 0.08 10*3/uL [facility] Basophils/100 WBC (Bld) 0.6 % 0.0 - 2.0 % [facility] Eosinophils (Bld) [#/Vol] 0.68 10*3/uL [facility] Eosinophils/100 WBC (Bld) 5.2 % 0.0 - 6.0 % [facility] Erythrocyte distribution width (RBC) [Ratio] 17.1 % High 11.5 - 14.5 % [facility] Hematocrit (Bld) [Volume fraction] 39.7 % 36.0 - 46.0 % [facility] Hemoglobin (Bld) [Mass/Vol] 12.2 g/dL 12.0 - 16.0 g/dL [facility] Immature granulocytes (Bld) [#/Vol] 0.03 10*3/uL [facility] Immature granulocytes/100 WBC (Bld) 0.2 % 0.0 - 0.9 % [facility] Comment on above: Immature Granulocyte Count (IG) includes promyelocytes, myelocytes and metamyelocytes but does not include bands. Percent differential counts (%) should be interpreted in the context of the absolute cell counts (cells/UL). Interpretation and review of laboratory results Abnormal [facility] Lymphocytes (Bld) [#/Vol] 4.75 10*3/uL [facility] Lymphocytes/100 WBC (Bld) 36 % 13.0 - 44.0 % [facility] MCH (RBC) [Entitic mass] 26.6 pg 26.0 - 34.0 pg [facility] MCHC (RBC) [Mass/Vol] 30.7 g/dL Low 32.0 - 36.0 g/dL [facility] MCV (RBC) [Entitic vol] 87 fL 80 - 100 fL [facility] Monocytes (Bld) [#/Vol] 0.79 10*3/uL [facility] Monocytes/100 WBC (Bld) 6 % 2.0 - 10.0 % [facility] Neutrophils (Bld) [#/Vol] 6.86 10*3/uL [facility] Comment on above: Percent differential counts (%) should be interpreted in the context of the absolute cell counts (cells/uL). Neutrophils/100 WBC (Bld) 52 % 40.0 - 80.0 % [facility] Nucleated RBC/100 WBC (Bld) [Ratio] 0 % [facility] Platelets (Bld) [#/Vol] 501 10*3/uL High [facility] RBC (Bld) [#/Vol] 4.58 10*6/uL [facility] WBC (Bld) [#/Vol] 13.2 10*3/uL High [facility] Basophils (Bld) [#/Vol] 0.08 x10*3/uL Normal 0.00-0.10 [facility] Comment on above: Performed By: #### 5 7021-8 ####JANETH Galo ([id number])[facility] ([facility])[address] [place] [address] Basophils/100 WBC (Bld) 0.6 % Normal 0.0-2.0 [facility] Comment on above: Performed By: #### 5 7021-8 ####JANETH Galo ([id number])[facility] ([facility])[id number] [place] [address] Eosinophils (Bld) [#/Vol] 0.68 x10*3/uL Normal 0.00-0.70 [facility] Comment on above: Performed By: #### 5 7021-8 ####JANETH Galo ([id number])[facility] ([facility])[address] [place] [address] Eosinophils/100 WBC (Bld) 5.2 % Normal 0.0-6.0 [facility] Comment on above: Performed By: #### 5 7021-8 ####JANETH Galo ([id number])[facility] ([facility])[address] [place] [address] Erythrocyte distribution width (RBC) [Ratio] 17.1 % High 11.5-14.5 [facility] Comment on above: Performed By: #### 5 7021-8 ####JANETH Galo ([id number])[facility] ([facility])[address] [place] [address] 24[address] Hematocrit (Bld) [Volume fraction] 39.7 % Normal 36.0-46.0 [facility] Comment on above: Performed By: #### 5 7021-8 ####JANETH Galo ([id number])[facility] ([facility])[id number] [place] [address] Hemoglobin (Bld) [Mass/Vol] 12.2 g/dL Normal 12.0-16.0 [facility] Comment on above: Performed By: #### 5 7021-8 ####JANETH Galo ([id number])[facility] ([facility])[address] [place] [address] Immature granulocytes (Bld) [#/Vol] 0.03 x10*3/uL Normal 0.00-0.70 [facility] Comment on above: Performed By: #### 5 7021-8 ####JANETH Galo ([id number])[facility] ([facility])[address] [place] [address] Immature granulocytes/100 WBC (Bld) 0.2 % Normal 0.0-0.9 [facility] Comment on above: Result Comment: Catrachita ture Granulocyte Count (IG) includes promyelocytes, myelocytes and metamyelocytes but does not include bands. Percent differential counts (%) should be interpreted in the context of the absolute cell counts (cells/UL). Performed By: #### 5 7021-8 ####JANETH Galo ([id number])[facility] ([facility])[address] [place] [address] Lymphocytes (Bld) [#/Vol] 4.75 x10*3/uL Normal 1.20-4.80 [facility] Comment on above: Performed By: #### 5 7021-8 ####JANETH Galo ([id number])[facility] ([facility])[address] [place] [address] Lymphocytes/100 WBC (Bld) 36.0 % Normal 13.0-44.0 [facility] Comment on above: Performed By: #### 5 7021-8 ####JANETH Galo ([id number])[facility] ([facility])[address] [place] [address] MCH (RBC) [Entitic mass] 26.6 pg Normal 26.0-34.0 [facility] Comment on above: Performed By: #### 5 7021-8 ####JANETH Galo ([id number])[facility] ([facility])[address] [place] [address] MCHC (RBC) [Mass/Vol] 30.7 g/dL Low 32.0-36.0 [facility] Comment on above: Performed By: #### 5 7021-8 ####JANETH Galo ([id number])[facility] ([facility])[address] [place] [address] MCV (RBC) [Entitic vol] 87 fL Normal 80-100 [facility] Comment on above: Performed By: #### 5 7021-8 ####JANETH Galo ([id number])[facility] ([facility])[address] [place] [address] Monocytes (Bld) [#/Vol] 0.79 x10*3/uL Normal 0.10-1.00 [facility] Comment on above: Performed By: #### 5 7021-8 ####JANETH Galo ([id number])[facility] ([facility])[address] [place] [address] Monocytes/100 WBC (Bld) 6.0 % Normal 2.0-10.0 [facility] Comment on above: Performed By: #### 5 7021-8 ####JANETH Galo ([id number])[facility] ([facility])[address] [place] [address] Neutrophils (Bld) [#/Vol] 6.86 x10*3/uL Normal 1.20-7.70 [facility] Comment on above: Result Comment: Perc ent differential counts (%) should be interpreted in the context of the absolute cell counts (cells/uL). Performed By: #### 5 7021-8 ####JANETH Galo ([id number])[facility] ([facility])[address] [place] [address] Neutrophils/100 WBC (Bld) 52.0 % Normal 40.0-80.0 [facility] Comment on above: Performed By: #### 5 7021-8 ####JANETH Galo ([id number])[facility] ([facility])[address] [place] [address] Nucleated RBC/100 WBC (Bld) [Ratio] 0.0 /100 WBCs Normal 0.0-0.0 [facility] Comment on above: Performed By: #### 5 7021-8 ####JANETH Galo ([id number])[facility] ([facility])[address] [place] [address] Platelets (Bld) [#/Vol] 501 x10*3/uL High 150-450 [facility] Comment on above: Performed By: #### 5 7021-8 ####JANETH RANGELER L ([id number])[facility] ([facility])[address] [place] [address] RBC (Bld) [#/Vol] 4.58 x10*6/uL Normal 4.00-5.20 [facility] Comment on above: Performed By: #### 5 7021-8 ####JANETH CONNORMOTZER L ([id number])[facility] ([facility])[address] [place] [address] WBC (Bld) [#/Vol] 13.2 x10*3/uL High 4.4-11.3 [facility] Comment on above: Performed By: #### 5 7021-8 ####JANETH Galo ([id number])[facility] ([facility])[address] [place] [address] TIBIA FIBULA RIGHT WO IV CONTRASTon 03-11-2024 CT TIBIA FIBULA RIGHT WO IV CONTRAST Normal [facility] Choriogonadotropin.beta subu niton 03-11-2024 HCG.beta subunit Qn m[IU]/mL Normal <5 [facility] Comment on above: Order Comment: Total HCG measurement is performed using the Siemens Atellica immunoassay which detects intact HCG and free beta HCG subunit. This test is not indicated for use as a tumor marker. HCG testing is performed using a different test methodology at [facility] than other [facility]. Direct result comparison should only be made within the same method. Performed By: #### 2 1198-7 ####JANETH Galo ([id number])[facility] ([facility])[address] [place] [address] ESR Westergren method (Bld) [Velocity]on 03-11-2024 ESR (Bld) [Velocity] 52 mm/h High 0 - 30 mm/h [facility] Interpretation and review of laboratory results Abnormal [facility] ESR (Bld) [Velocity] 52 mm/h High 0-30 [facility] Comment on above: Performed By: #### 4 537-7 ####JANETH Galo ([id number])[facility] ([facility])[address] [place], [place] [id number] HCG.beta subunit Qnon 2024 Interpretation and review of laboratory results Normal [facility] Total HCG measuremen t is performed using the Siemens Decisive BIllFP Complete immunoassay which detects intact HCG and free beta HCG subunit. This test is not indicated for use as a tumor marker. HCG testing is performed using a different test methodology at [facility] than other [facility]. Direct result comparison should only be made within the same method. [facility] No Panel Informationon 03-11 [facility] Interpretation and review of laboratory results Abnormal [facility] PT and aPTT panel Coag (PPP) on 03-11-2024 aPTT Coag (PPP) [Time] 44 s High [facility] INR Coag (PPP) [Relative time] 1 {INR} 0.9 - 1.1 [facility] Interpretation and review of laboratory results Abnormal [facility] PT Coag (PPP) [Time] 10.8 s [facility] The APTT is no longe r used for monitoring Unfractionated Heparin Therapy. For monitoring Heparin Therapy, use the Heparin Assay. [facility] aPTT Coag (PPP) [Time] 44 s High 27-38 [facility] Comment on above: Order Comment: The A PTT is no longer used for monitoring Unfractionated Heparin Therapy. For monitoring Heparin Therapy, use the Heparin Assay. Performed By: #### 3 4529-8 ####JANETH Galo ([id number])[facility] ([facility])[address] [place] [address] INR Coag (PPP) [Relative time] 1.0 Normal 0.9-1.1 [facility] Comment on above: Order Comment: The A PTT is no longer used for monitoring Unfractionated Heparin Therapy. For monitoring Heparin Therapy, use the Heparin Assay. Performed By: #### 3 4529-8 ####JANETH Galo ([id number])[facility] ([facility])[address] [place] [address] PT Coag (PPP) [Time] 10.8 s Normal 9.8-12.8 [facility] Comment on above: Order Comment: The A PTT is no longer used for monitoring Unfractionated Heparin Therapy. For monitoring Heparin Therapy, use the Heparin Assay. Performed By: #### 3 4529-8 ####JANETH Galo ([id number])[facility] ([facility])[address] [place] [address] XR CHEST 1 VIEWon 03-11-2024 XR CHEST 1 VIEW Normal [facility] XR Chest Single viewon 03-11 Radiology Study observation (narrative) [facility] Work Phone: hCG, quantitative, on 03-11-2024 HCG.beta subunit Qn NINF [facility] 02-03-2024 CNPN Telephone (TAVARES) ----- DEIDRA DE LA CRUZ ([id number]) 1970 F Date Time Provider Department 02/03/24 BIJAN ELMORE During your visit today, we recorded the following information about you: Carlo Miranda LPN 02/03/2024 1:49 PM Signed Received orders from lopez. Placed in provider's inbox for review. Route to [place] fax Allergies As of Date: 02/03/2024 Noted Allergy Reaction PENICILLIN 06/05/2015 16 - Unknown Date Reviewed: 11/18/2023 Reviewed by: Carlo Miranda LPN - Fully Assessed Reason for Visit: Orders [111] Cmt: lopez Prescriptions as of 02/03/2024 - buPROPion SR (WELLBUTRIN SR) 150 mg 12 hr tablet take 1 tablet by mouth twice a day - promethazine (PHENERGAN) 25 mg tablet Take 1 tablet by mouth every 6 hours as needed. - levETIRAcetam (KEPPRA) 500 mg tablet Take 1 tablet by mouth two times a day. - baclofen 20 mg tablet Take 1 tablet by mouth three times a day. - clonazePAM (KLONOPIN) 0.5 mg tablet Take 1 tablet by mouth three times a day for 30 days. - levothyroxine (LEVOXYL) 75 mcg tablet Take 1 tablet by mouth once daily. Take on empty stomach. For thyroid. - cloNIDine HCl (CATAPRES) 0.1 mg tablet take 1 tablet by mouth three times a day - ibuprofen (MOTRIN) 600 mg tablet Take 1 tablet by mouth every 8 hours as needed for pain. - gabapentin (NEURONTIN) 600 mg tablet Take 1 tablet by mouth three times a day for 90 days. - sertraline (ZOLOFT) 100 mg tablet Take 1 tablet by mouth once daily. Wean as directed. - white petrolatum (AQUAPHOR) 41 % topical ointment Apply to affected area as needed. - acetaminophen (TYLENOL EXTRA STRENGTH) 500 mg tablet Take 2 tablets by mouth every 6 hours as needed for pain. - lidocaine (LIDODERM) 5 % Apply 1 Patch as directed every 24 hours. Remove old patch after 12 hours Location: arm - Mirtazapine (REMERON) 7.5 mg tablet take 1 tablet by mouth at bedtime - Underpads 23 X 24 pads 1 Each as needed. - famotidine (PEPCID) 20 mg tablet Take 1 tablet by mouth once daily. - Foam Bandage (OPTIFOAM) 4 X 4 bndg Apply to affected area as needed. - amLODIPine (NORVASC) 5 mg tablet amlodipine 5 mg tablet - melatonin 5 mg tablet Take 5 mg by mouth. - methadone 5 mg/5 mL solution Take 5 mL by mouth once daily. Problem List As Of Date 02/03/2024 Noted Resolved Chronic anxiety [F41.9] 06/05/2015 Gastroesophageal reflux disease [K21.9] 06/05/2015 Chronic constipation [K59.09] 06/05/2015 Chronic nausea [R11.0] 06/05/2015 Hepatitis C antibody positive in blood [R76.8] 04/08/2017 Chronic hepatitis C without hepatic coma (HCC) *02/03/2019 Positive urine drug screen [R82.5] 04/30/2019 Debility [R53.81] 04/18/2021 Traumatic injury [T14.90XA] 06/27/2021 Chronic pain syndrome [G89.4] 06/27/2021 Multiple fractures [T07.XXXA] 06/27/2021 Seizures (HCC) [R56.9] 09/18/2021 Encounter Status:Closed by CARLO MIRANDA on 02/03/24 [facility] 01-27-2024 BRITNEY Telephone (TAVARES) ----- DEIDRA DE LA CRUZ ([id number]) 1970 F Date Time Provider Department 01/27/24 BIJAN ELMORE During your visit today, we recorded the following information about you: Carlo Miranda LPN 01/27/2024 4:42 PM Signed Received orders from lopez. Placed in provider's inbox for review. Route to [place] fax Allergies As of Date: 01/27/2024 Noted Allergy Reaction PENICILLIN 06/05/2015 16 - Unknown Date Reviewed: 11/18/2023 Reviewed by: Carlo Miranda LPN - Fully Assessed Reason for Visit: Orders [681] Cmt: lopez Prescriptions as of 01/27/2024 - promethazine (PHENERGAN) 25 mg tablet Take 1 tablet by mouth every 6 hours as needed. - levETIRAcetam (KEPPRA) 500 mg tablet Take 1 tablet by mouth two times a day. - baclofen 20 mg tablet Take 1 tablet by mouth three times a day. - clonazePAM (KLONOPIN) 0.5 mg tablet Take 1 tablet by mouth three times a day for 30 days. - levothyroxine (LEVOXYL) 75 mcg tablet Take 1 tablet by mouth once daily. Take on empty stomach. For thyroid. - cloNIDine HCl (CATAPRES) 0.1 mg tablet take 1 tablet by mouth three times a day - ibuprofen (MOTRIN) 600 mg tablet Take 1 tablet by mouth every 8 hours as needed for pain. - gabapentin (NEURONTIN) 600 mg tablet Take 1 tablet by mouth three times a day for 90 days. - buPROPion SR (WELLBUTRIN SR) 150 mg 12 hr tablet Take 1 tablet by mouth two times a day. - sertraline (ZOLOFT) 100 mg tablet Take 1 tablet by mouth once daily. Wean as directed. - white petrolatum (AQUAPHOR) 41 % topical ointment Apply to affected area as needed. - acetaminophen (TYLENOL EXTRA STRENGTH) 500 mg tablet Take 2 tablets by mouth every 6 hours as needed for pain. - lidocaine (LIDODERM) 5 % Apply 1 Patch as directed every 24 hours. Remove old patch after 12 hours Location: arm - Mirtazapine (REMERON) 7.5 mg tablet take 1 tablet by mouth at bedtime - Underpads 23 X 24 pads 1 Each as needed. - famotidine (PEPCID) 20 mg tablet Take 1 tablet by mouth once daily. - Foam Bandage (OPTIFOAM) 4 X 4 bndg Apply to affected area as needed. - amLODIPine (NORVASC) 5 mg tablet amlodipine 5 mg tablet - melatonin 5 mg tablet Take 5 mg by mouth. - methadone 5 mg/5 mL solution Take 5 mL by mouth once daily. Problem List As Of Date 01/27/2024 Noted Resolved Chronic anxiety [F41.9] 06/05/2015 Gastroesophageal reflux disease [K21.9] 06/05/2015 Chronic constipation [K59.09] 06/05/2015 Chronic nausea [R11.0] 06/05/2015 Hepatitis C antibody positive in blood [R76.8] 04/08/2017 Chronic hepatitis C without hepatic coma (HCC) *02/03/2019 Positive urine drug screen [R82.5] 04/30/2019 Debility [R53.81] 04/18/2021 Traumatic injury [T14.90XA] 06/27/2021 Chronic pain syndrome [G89.4] 06/27/2021 Multiple fractures [T07.XXXA] 06/27/2021 Seizures (HCC) [R56.9] 09/18/2021 Encounter Status:Closed by CARLO MIRANDA on 01/27/24 Normal [facility] No Panel Informationon 01-14 [facility] Renal function 2000 panelon 01-15-2024 Albumin BCP dye [Mass/Vol] 3.1 g/dL Low 3.4 - 5.0 g/dL [facility] Anion gap [Moles/Vol] 12 mmol/L 10 - 2 0 mmol/L [facility] Calcium [Mass/Vol] 9 mg/dL 8.6 - 10. 6 mg/dL [facility] Chloride [Moles/Vol] 103 mmol/L 98 - 10 7 mmol/L [facility] CO2 [Moles/Vol] 30 mmol/L 21 - 32 mmol/L [facility] Creatinine [Mass/Vol] 0.78 mg/dL 0.50 - 1.05 mg/dL [facility] eGFR - PINF [facility] Comment on above: Calculations of bill mated GFR are performed using the 2020 CKD-EPI Study Refit equation without the race variable for the IDMS-Traceable creatinine methods. https://jasn.asnjournals.org/content/early/ASN.811965 8518 Glucose [Mass/Vol] 129 mg/dL High 74 - 99 mg/dL [facility] Interpretation and review of laboratory results Abnormal [facility] Phosphate [Mass/Vol] 4.2 mg/dL 2.5 - 4 .9 mg/dL [facility] Comment on above: MILD HEMOLYSIS DETEC ROSANNA. The result may be falsely elevated due to hemolysis or other interferents. Clinical correlation is recommended. Repeat testing may be considered. The performance characteristics of phosphorus testing in heparinized plasma have been validated by the individual laboratory site where testing is performed. Testing on heparinized plasma is not approved by the FDA; however, such approval is not necessary. Potassium [Moles/Vol] 4.2 mmol/L 3.5 - 5.3 mmol/L [facility] Comment on above: MILD HEMOLYSIS DETEC ROSANNA. The result may be falsely elevated due to hemolysis or other interferents. Clinical correlation is recommended. Repeat testing may be considered. Sodium [Moles/Vol] 141 mmol/L 136 - 145 mmol/L [facility] Urea nitrogen [Mass/Vol] 12 mg/dL 6 - 23 mg/dL [facility] Albumin BCP dye [Mass/Vol] 3.1 g/dL Low 3.4-5.0 [facility] Comment on above: Performed By: #### 2 4362-6 ####JANETH Galo ([id number])[facility] ([facility])[address] [place] [address] Anion gap [Moles/Vol] 12 mmol/L Normal 10-20 [facility] Comment on above: Performed By: #### 2 4362-6 ####JANETH Galo ([id number])[facility] ([facility])[address] [place] [address] Calcium [Mass/Vol] 9.0 mg/dL Normal 8.6-10.6 [facility] Comment on above: Performed By: #### 2 4362-6 ####JANETH Galo ([id number])[facility] ([facility])[address] [place] [address] Chloride [Moles/Vol] 103 mmol/L Normal 98-107 [facility] Comment on above: Performed By: #### 2 4362-6 ####JANETH Galo ([id number])[facility] ([facility])[address] [place] [address] CO2 [Moles/Vol] 30 mmol/L Normal 21-32 [facility] Comment on above: Performed By: #### 2 4362-6 ####JANETH Galo ([id number])[facility] ([facility])[address] [place] [address] Creatinine [Mass/Vol] 0.78 mg/dL Normal 0.50-1.05 [facility] Comment on above: Performed By: #### 2 4362-6 ####JANETH Galo ([id number])[facility] ([facility])[address] [place] [address] GFR/1.73 sq M.predicted MDRD (S/P/Bld) [Vol rate/Area] mL/min/{1.73_m2} Normal >60 [facility] Comment on above: Result Comment: Calc ulations of estimated GFR are performed using the 2020 CKD-EPI Study Refit equation without the race variable for the IDMS-Traceable creatinine methods.https://jasn.asnjournals.org/content/early/ N.2394641797 Performed By: #### 2 4362-6 ####JANETH Galo ([id number])[facility] ([facility])[address] [place] [address] Glucose [Mass/Vol] 129 mg/dL High 74-99 [facility] Comment on above: Performed By: #### 2 4362-6 ####JANETH Galo ([id number])[facility] ([facility])[address] [place] [address] Phosphate [Mass/Vol] 4.2 mg/dL Normal 2.5-4.9 [facility] Comment on above: Result Comment: MILD HEMOLYSIS DETECTED. The result may be falsely elevated due to hemolysis or other interferents. Clinical correlation is recommended. Repeat testing may be considered.The performance characteristics of phosphorus testing in heparinized plasma have been validated by the individual laboratory site where testing is performed. Testing on heparinized plasma is not approved by the FDA; however, such approval is not necessary. Performed By: #### 2 4362-6 ####JANETH Galo ([id number])[facility] ([facility])[address] [place] [address] Potassium [Moles/Vol] 4.2 mmol/L Normal 3.5-5.3 [facility] Comment on above: Result Comment: MILD HEMOLYSIS DETECTED. The result may be falsely elevated due to hemolysis or other interferents. Clinical correlation is recommended. Repeat testing may be considered. Performed By: #### 2 4362-6 ####JANETH Galo ([id number])[facility] ([facility])[address] [facility] [place] [address] Sodium [Moles/Vol] 141 mmol/L Normal 136-145 [facility] Comment on above: Performed By: #### 2 4362-6 ####JANETH Galo ([id number])[facility] ([facility])[address] [place] [address] Urea nitrogen [Mass/Vol] 12 mg/dL Normal 6-23 [facility] Comment on above: Performed By: #### 2 4362-6 ####JANETH Galo ([id number])[facility] ([facility])[address] [place] [address] Vancomycinon 01-15-2024 Vancomycin [Mass/Vol] 17.2 ug/mL 5.0 - 20.0 ug/mL [facility] Vancomycin [Mass/Vol] 17.2 ug/mL Normal 5.0-20.0 [facility] Comment on above: Order Comment: Vanco mycin levels can be monitored according to area under the curve (AUC) or concentration (ug/mL). The preferred monitoring strategy is determined by the patient's renal function and indication for therapy.For AUC monitoring, a random vancomycin level should be interpreted in the context of AUC rather than the concentration at a single point in time.For concentration monitoring, a trough concentration drawn immediately prior to the next dose is preferred.Therapeutic ranges using concentration-guided results:Peak (all ages): 30.0-40.0 ug/mLTrough (all ages): 10.0-20.0 ug/mL Performed By: #### 2 0578-1 ####JANETH Galo ([id number])[facility] ([facility])[address] [place] [address] Vancomycin [Mass/Vol]on 12-19 Interpretation and review of laboratory results Normal [facility] Vancomycin levels can be monitored according to area under the curve (AUC) or concentration (ug/mL). The preferred monitoring strategy is determined by the patient's renal function and indication for therapy. For AUC monitoring, a random vancomycin level should be interpreted in the context of AUC rather than the concentration at a single point in time. For concentration monitoring, a trough concentration drawn immediately prior to the next dose is preferred. Therapeutic ranges using concentration-guided results: Peak (all ages): 30.0-40.0 ug/mL Trough (all ages): 10.0-20.0 ug/mL [facility] MRSA isol Org specific cx Ql (Nose)Ordered By: Ketty Pierson on 01-13-2024 Interpretation and review of laboratory results Normal [facility] Staphylococcus sp identified Org specific cx Nom (Unsp spec) No Staphylococcus aureus isolated [facility] Vancomycinon 01-12-2024 Vancomycin [Mass/Vol] 13.6 ug/mL 5.0 - 20.0 ug/mL [facility] Vancomycin [Mass/Vol] 13.6 ug/mL Normal 5.0-20.0 [facility] Comment on above: Order Comment: Vanco mycin levels can be monitored according to area under the curve (AUC) or concentration (ug/mL). The preferred monitoring strategy is determined by the patient's renal function and indication for therapy.For AUC monitoring, a random vancomycin level should be interpreted in the context of AUC rather than the concentration at a single point in time.For concentration monitoring, a trough concentration drawn immediately prior to the next dose is preferred.Therapeutic ranges using concentration-guided results:Peak (all ages): 30.0-40.0 ug/mLTrough (all ages): 10.0-20.0 ug/mL Performed By: #### 2 0578-1 ####JANETH Galo ([id number])[facility] ([facility])[address] [place] [address] Vancomycin [Mass/Vol]on 12-19 Interpretation and review of laboratory results Normal [facility] Vancomycin levels can be monitored according to area under the curve (AUC) or concentration (ug/mL). The preferred monitoring strategy is determined by the patient's renal function and indication for therapy. For AUC monitoring, a random vancomycin level should be interpreted in the context of AUC rather than the concentration at a single point in time. For concentration monitoring, a trough concentration drawn immediately prior to the next dose is preferred. Therapeutic ranges using concentration-guided results: Peak (all ages): 30.0-40.0 ug/mL Trough (all ages): 10.0-20.0 ug/mL [facility] Bacteria identified Cx Nom ( Unsp spec)on 01-11-2024 Interpretation and review of laboratory results Abnormal [facility] Work Phone: Microscopic observation Gram stain Nom (Unsp spec) No polymorphonuclear leukocytes seen Abnormal [facility] Work Phone: Microscopic observation Gram stain Nom (Unsp spec) Positive Abnormal [facility] Work Phone: [facility] Work Phone: Interpretation and review of laboratory results Abnormal [facility] Work Phone: Microscopic observation Gram stain Nom (Unsp spec) (2+) Few Polymorphonuclear leukocytes [facility] Work Phone: Microscopic observation Gram stain Nom (Unsp spec) No organisms seen [facility] Work Phone: [facility] Work Phone: Interpretation and review of laboratory results Abnormal [facility] Work Phone: Microscopic observation Gram stain Nom (Unsp spec) (1+) Rare Polymorphonuclear leukocytes [facility] Work Phone: Microscopic observation Gram stain Nom (Unsp spec) No organisms seen [facility] Work Phone: [facility] Work Phone: Interpretation and review of laboratory results Abnormal [facility] Work Phone: Microscopic observation Gram stain Nom (Unsp spec) (3+) Moderate Polymorphonuclear leukocytes [facility] Work Phone: Microscopic observation Gram stain Nom (Unsp spec) No organisms seen [facility] Work Phone: [facility] Work Phone: Bacteria identified Cx Nom ( Unsp spec)Ordered By: Linda Campos on 01-11-2024 Interpretation and review of laboratory results Abnormal [facility] Microscopic observation Gram stain Nom (Unsp spec) (2+) Few Polymorphonuclear leukocytes [facility] Microscopic observation Gram stain Nom (Unsp spec) No organisms seen [facility] Bedside PICC Imagingon 01-10 These images are not reportable by radiology and will not be interpreted by Radiologists. IMAGING PICC >5 YR BEDSIDE IMAGINGon 01-11-2024 PICC >5 YR BEDSIDE IMAGING These images are not reportable by radiology and will not be interpreted by Radiologists. Normal [facility] Staphylococcus aureus.methic illin resistant isolateon 01-11-2024 MRSA isol Org specific cx Ql (Nose) Normal [facility] Comment on above: Performed By: #### 5 2969-3 ####JANETH Galo ([id number])[facility] ([facility])[address] [place] [address] 644[address] Tissue/Wound Culture/Smearon 01-11-2024 Bacteria identified Cx Nom (Unsp spec) (1+) Rare Staphylococcus aureus Abnormal [facility] Work Phone: Comment on above: For antibiotic susce ptibility results see Specimen # - [id number] Bacteria identified Cx Nom (Unsp spec) (1+) Rare Staphylococcus aureus Abnormal [facility] Work Phone: Comment on above: For antibiotic susce ptibility results see Specimen # - [id number] Bacteria identified Cx Nom (Unsp spec) (2+) Few Methicillin Resistant Staphylococcus aureus (MRSA) Abnormal [facility] Work Phone: Comment on above: Methicillin (Oxacill in) resistant Staphylococci are resistant to all currently available Penicillins, Beta-lactam/Beta-lactamase inhibitor combinations (including Ampicillin/Sulbactam, Amoxicillin/Clavulanate and Pipercillin/Tazobactam), Carbapenems and Cephalosporins (except Ceftaroline). Bacteria identified Cx Nom (Unsp spec) (3+) Moderate Staphylococcus aureus Abnormal [facility] Work Phone: Comment on above: For antibiotic susce ptibility results see Specimen # - [id number] Tissue/Wound Culture/SmearOr dered By: Linda Campos on 01-11-2024 Bacteria identified Cx Nom (Unsp spec) (2+) Few Staphylococcus aureus Abnormal [facility] Comment on above: For antibiotic susce ptibility results see Specimen # - [id number] Basic metabolic 2000 panelon 01-10-2024 Anion gap [Moles/Vol] 13 mmol/L 10 - 2 0 mmol/L [facility] Calcium [Mass/Vol] 9 mg/dL 8.6 - 10. 6 mg/dL [facility] Chloride [Moles/Vol] 102 mmol/L 98 - 10 7 mmol/L [facility] CO2 [Moles/Vol] 28 mmol/L 21 - 32 mmol/L [facility] Creatinine [Mass/Vol] 0.81 mg/dL 0.50 - 1.05 mg/dL [facility] GFR/1.73 sq M.predicted among non-blacks MDRD (S/P/Bld) [Vol rate/Area] 88 mL/min/{1.73_m2} - PINF [facility] Comment on above: Calculations of bill mated GFR are performed using the 2020 CKD-EPI Study Refit equation without the race variable for the IDMS-Traceable creatinine methods. https://jasn.asnjournals.org/content///ASN.829144 8082 Glucose [Mass/Vol] 96 mg/dL 74 - 99 mg/dL [facility] Potassium [Moles/Vol] 4.3 mmol/L 3.5 - 5.3 mmol/L [facility] Sodium [Moles/Vol] 139 mmol/L 136 - 145 mmol/L [facility] Urea nitrogen [Mass/Vol] 16 mg/dL 6 - 23 mg/dL [facility] Anion gap [Moles/Vol] 13 mmol/L Normal 10-20 [facility] Comment on above: Performed By: #### 2 4321-2 ####JANETH Galo ([id number])[facility] ([facility])[address] [place] [address] 18483 Calcium [Mass/Vol] 9.0 mg/dL Normal 8.6-10.6 [facility] Comment on above: Performed By: #### 2 4321-2 ####JANETH RANGELER L ([id number])[facility] ([facility])[address] [place] [address] Chloride [Moles/Vol] 102 mmol/L Normal 98-107 [facility] Comment on above: Performed By: #### 2 4321-2 ####JANETH CONNORMOTZER L ([id number])[facility] ([facility])[address] [place] [address] CO2 [Moles/Vol] 28 mmol/L Normal 21-32 [facility] Comment on above: Performed By: #### 2 4321-2 ####JANETH RANGELER L ([id number])[facility] ([facility])[address] [place] [address] Creatinine [Mass/Vol] 0.81 mg/dL Normal 0.50-1.05 [facility] Comment on above: Performed By: #### 2 1-2 ####JANETH MCDONALDTZER L ([id number])[facility] ([facility])[address] [place] [address] Glomerular filtration rate/1.73 sq M.predicted 88 mL/min/1.73m*2 Normal >60 [facility] Comment on above: Result Comment: Calc ulations of estimated GFR are performed using the 2020 CKD-EPI Study Refit equation without the race variable for the IDMS-Traceable creatinine methods.https://jasn.asnjournals.org/content// N.3178456947 Performed By: #### 2 4321-2 ####JANETH RANGELER L ([id number])[facility] ([facility])[address] [place] [address] Glucose [Mass/Vol] 96 mg/dL Normal 74-99 [facility] Comment on above: Performed By: #### 2 4321-2 ####JANETH CONNORMOTZER L ([id number])[facility])[address] [place] [address] Potassium [Moles/Vol] 4.3 mmol/L Normal 3.5-5.3 [facility] Comment on above: Performed By: #### 2 4321-2 ####JANETH Galo ([id number])[facility] ([facility])[address] [place] [address] Sodium [Moles/Vol] 139 mmol/L Normal 136-145 [facility] Comment on above: Performed By: #### 2 4321-2 ####JANETH Galo ([id number])[facility] ([facility])[address] [place] [address] Urea nitrogen [Mass/Vol] 16 mg/dL Normal - [facility] Comment on above: Performed By: #### 2 4321-2 ####JANETH Galo ([id number])[facility] ([facility])[address] [place] [address] CBC panel Auto (Bld)on 01-09 Erythrocyte distribution width (RBC) [Ratio] 15.8 % High 11.5 - 14.5 % [facility] Hematocrit (Bld) [Volume fraction] 36.5 % 36.0 - 46.0 % [facility] Hemoglobin (Bld) [Mass/Vol] 11.2 g/dL Low 12.0 - 16.0 g/dL [facility] Interpretation and review of laboratory results Abnormal [facility] MCH (RBC) [Entitic mass] 26.9 pg 26.0 - 34.0 pg [facility] MCHC (RBC) [Mass/Vol] 30.7 g/dL Low 32.0 - 36.0 g/dL [facility] MCV (RBC) [Entitic vol] 88 fL 80 - 100 fL [facility] Nucleated RBC/100 WBC (Bld) [Ratio] 0 % [facility] Platelets (Bld) [#/Vol] 507 10*3/uL [facility] RBC (Bld) [#/Vol] 4.17 10*6/uL [facility] WBC (Bld) [#/Vol] 21.2 10*3/uL [facility] Erythrocyte distribution width (RBC) [Ratio] 15.8 % High 11.5-14.5 [facility] Comment on above: Performed By: #### 5 8410-2 ####JANETH Galo ([id number])[facility] ([facility])[id number] [place] [address] Hematocrit (Bld) [Volume fraction] 36.5 % Normal 36.0-46.0 [facility] Comment on above: Performed By: #### 5 8410-2 ####JANETH Galo ([id number])[facility] ([facility])[address] [place] [address]96 Hemoglobin (Bld) [Mass/Vol] 11.2 g/dL Low 12.0-16.0 [facility] Comment on above: Performed By: #### 5 8410-2 ####JANETH Galo ([id number])[facility] ([facility])[address] [place] [address]140 MCH (RBC) [Entitic mass] 26.9 pg Normal 26.0-34.0 [facility] Comment on above: Performed By: #### 5 8410-2 ####JANETH Galo ([id number])[facility] ([facility])[address] [place] [address] MCHC (RBC) [Mass/Vol] 30.7 g/dL Low 32.0-36.0 [facility] Comment on above: Performed By: #### 5 8410-2 ####JANETH Galo ([id number])[facility] ([facility])[address] [place] [address] MCV (RBC) [Entitic vol] 88 fL Normal 80-100 [facility] Comment on above: Performed By: #### 5 8410-2 ####JANETH Galo ([id number])[facility] ([facility])[address] [place] [address] Nucleated RBC/100 WBC (Bld) [Ratio] 0.0 /100 WBCs Normal 0.0-0.0 [facility] Comment on above: Performed By: #### 5 8410-2 ####JANETH GRAFF L ([id number])[facility] ([facility])[address] [place] [address] Platelets (Bld) [#/Vol] 507 x10*3/uL High 150-450 [facility] Comment on above: Performed By: #### 5 8410-2 ####JANETH GRAFF L ([id number])[facility] ([facility])[address] [place] [address] RBC (Bld) [#/Vol] 4.17 x10*6/uL Normal 4.00-5.20 [facility] Comment on above: Performed By: #### 5 8410-2 ####JANETH GRAFF L ([id number])[facility])[address] [place] [address] WBC (Bld) [#/Vol] 21.2 x10*3/uL High 4.4-11.3 [facility] Comment on above: Performed By: #### 5 8410-2 ####JANETH GRAFF L ([id number])[facility])[address] [place] [address] ECG 12-LEADon 01-10-2024 ECG 12-LEAD Ventricular Rate 79 Atrial Rate 79 P-R Interval 144 QRS Duration 88 Q-T Interval 404 QTC Calculation(Bazett) 463 P [place] 49 R [place] 20 T [place] 17 QRS Count 13 Q Onset 214 P Onset 142 P Offset 197 T Offset 416 QTC Fredericia 443 Diagnosis Normal sinus rhythm Normal ECG No previous ECGs available Confirmed by Giancarlo Bonilla ([id number]) on 01/20/2024 10:17:05 PM Normal [facility] No Panel Informationon 01-09 Interpretation and review of laboratory results Normal [facility] Vancomycinon 01-10-2024 Vancomycin [Mass/Vol] 7.8 ug/mL 5.0 - 20.0 ug/mL [facility] Vancomycin [Mass/Vol] 7.8 ug/mL Normal 5.0-20.0 [facility] Comment on above: Order Comment: Vanco mycin levels can be monitored according to area under the curve (AUC) or concentration (ug/mL). The preferred monitoring strategy is determined by the patient's renal function and indication for therapy.For AUC monitoring, a random vancomycin level should be interpreted in the context of AUC rather than the concentration at a single point in time.For concentration monitoring, a trough concentration drawn immediately prior to the next dose is preferred.Therapeutic ranges using concentration-guided results:Peak (all ages): 30.0-40.0 ug/mLTrough (all ages): 10.0-20.0 ug/mL Performed By: #### 2 0578-1 ####JANETH Galo ([id number])[facility] ([facility])[address] [place] [address] 97[address] Vancomycin [Mass/Vol]on 12-19 Vancomycin levels can be monitored according to area under the curve (AUC) or concentration (ug/mL). The preferred monitoring strategy is determined by the patient's renal function and indication for therapy. For AUC monitoring, a random vancomycin level should be interpreted in the context of AUC rather than the concentration at a single point in time. For concentration monitoring, a trough concentration drawn immediately prior to the next dose is preferred. Therapeutic ranges using concentration-guided results: Peak (all ages): 30.0-40.0 ug/mL Trough (all ages): 10.0-20.0 ug/mL [facility] Bacteria identifiedon 2023 Bacteria identified Cx Nom (Unsp spec) [facility] Comment on above: Performed By: #### 6 463-4 ####JANETH Galo ([id number])[facility] ([facility])[address] [place] [address] Bacteria identified Cx Nom (Unsp spec) Abnormal [facility] Comment on above: Performed By: #### 6 463-4 ####JANETH Galo ([id number])[facility] ([facility])[address] [place] [address] Bacteria identified Cx Nom (Unsp spec) Abnormal [facility] Comment on above: Performed By: #### 6 463-4 ####JANETH Galo ([id number])[facility] ([facility])[address] [place] [address] Bacteria identified Cx Nom (Unsp spec) Abnormal [facility] Comment on above: Performed By: #### 6 463-4 ####JANETH Galo ([id number])[facility] ([facility])[address] [place] [address] 34056 Bacteria identified Cx Nom (Unsp spec) [facility] Comment on above: Performed By: #### 6 463-4 ####JANETH Galo ([id number])[facility] ([facility])[address] [place] [address] FL FLUORO IMAGES NO CHARGEon 01-09-2024 FL FLUORO IMAGES NO CHARGE These images are not reportable by radiology and will not be interpreted by Radiologists. [facility] Fungus identifiedon 01-09-20 Fungus identified Cx Nom (Unsp spec) [facility] Comment on above: Performed By: #### 5 80-1 ####JANETH Galo ([id number])[facility] ([facility])[address] [place] [address] 19987 Fungus identified Cx Nom (Unsp spec) [facility] Comment on above: Performed By: #### 5 80-1 ####JANETH Galo ([id number])[facility] ([facility])[address] [place] [address] 65[address] Fungus identified Cx Nom (Unsp spec) [facility] Comment on above: Performed By: #### 5 80-1 ####JANETH Galo ([id number])[facility])[address] [place] [address] Fungus identified Cx Nom (Unsp spec) [facility] Comment on above: Performed By: #### 5 80-1 ####JANETH Galo ([id number])[facility] ([facility])[address] [place] [address] Fungus identified Cx Nom (Unsp spec) Normal [facility] Comment on above: Performed By: #### 5 80-1 ####JANETH Galo ([id number])[facility] ([facility])[address] [place] [address] Renal function 2000 panelon 01-09-2024 Albumin BCP dye [Mass/Vol] 3.8 g/dL 3.4 - 5.0 g/dL [facility] Anion gap [Moles/Vol] 13 mmol/L 10 - 2 0 mmol/L [facility] Calcium [Mass/Vol] 9 mg/dL 8.6 - 10. 6 mg/dL [facility] Chloride [Moles/Vol] 100 mmol/L 98 - 10 7 mmol/L [facility] CO2 [Moles/Vol] 30 mmol/L 21 - 32 mmol/L [facility] Creatinine [Mass/Vol] 0.84 mg/dL 0.50 - 1.05 mg/dL [facility] GFR/1.73 sq M.predicted among non-blacks MDRD (S/P/Bld) [Vol rate/Area] 84 mL/min/{1.73_m2} - PINF [facility] Comment on above: Calculations of bill mated GFR are performed using the 2020 CKD-EPI Study Refit equation without the race variable for the IDMS-Traceable creatinine methods. https://jasn.asnjournals.org/content//ASN.893347 0415 Glucose [Mass/Vol] 127 mg/dL High 74 - 99 mg/dL [facility] Interpretation and review of laboratory results Abnormal [facility] Phosphate [Mass/Vol] 4.1 mg/dL 2.5 - 4 .9 mg/dL [facility] Comment on above: The performance lucia acteristics of phosphorus testing in heparinized plasma have been validated by the individual laboratory site where testing is performed. Testing on heparinized plasma is not approved by the FDA; however, such approval is not necessary. Potassium [Moles/Vol] 5.1 mmol/L 3.5 - 5.3 mmol/L [facility] Sodium [Moles/Vol] 138 mmol/L 136 - 145 mmol/L [facility] Urea nitrogen [Mass/Vol] 12 mg/dL 6 - 23 mg/dL [facility] Albumin BCP dye [Mass/Vol] 3.8 g/dL Normal 3.4-5.0 [facility] Comment on above: Performed By: #### 2 4362-6 ####JANETH Galo ([id number])[facility] ([facility])[address] [place] [address] Anion gap [Moles/Vol] 13 mmol/L Normal 10-20 [facility] Comment on above: Performed By: #### 2 4362-6 ####JANETH Galo ([id number])[facility] ([facility])[address] [place] [address] Calcium [Mass/Vol] 9.0 mg/dL Normal 8.6-10.6 [facility] Comment on above: Performed By: #### 2 4362-6 ####JANETH Galo ([id number])[facility] ([facility])[address] [place] [address] Chloride [Moles/Vol] 100 mmol/L Normal 98-107 [facility] Comment on above: Performed By: #### 2 4362-6 ####JANETH Galo ([id number])[facility] ([facility])[address] [place] [address] CO2 [Moles/Vol] 30 mmol/L Normal 21-32 [facility] Comment on above: Performed By: #### 2 4362-6 ####JANETH Galo ([id number])[facility] ([facility])[address] [place] [address] Creatinine [Mass/Vol] 0.84 mg/dL Normal 0.50-1.05 [facility] Comment on above: Performed By: #### 2 4362-6 ####JANETH Galo ([id number])[facility] ([facility])[address] [place] [address] Glomerular filtration rate/1.73 sq M.predicted 84 mL/min/1.73m*2 Normal >60 [facility] Comment on above: Result Comment: Calc ulations of estimated GFR are performed using the 2020 CKD-EPI Study Refit equation without the race variable for the IDMS-Traceable creatinine methods.https://jasn.asnjournals.org/content// N.9305441471 Performed By: #### 2 4362-6 ####JANETH Galo ([id number])[facility] ([facility])[address] [place] [address] Glucose [Mass/Vol] 127 mg/dL High 74-99 [facility] Comment on above: Performed By: #### 2 4362-6 ####JANETH Galo ([id number])[facility] ([facility])[address] [place] [address] Phosphate [Mass/Vol] 4.1 mg/dL Normal 2.5-4.9 [facility] Comment on above: Result Comment: The performance characteristics of phosphorus testing in heparinized plasma have been validated by the individual laboratory site where testing is performed. Testing on heparinized plasma is not approved by the FDA; however, such approval is not necessary. Performed By: #### 2 4362-6 ####JANETH Galo ([id number])[facility] ([facility])[address] [place] [address] Potassium [Moles/Vol] 5.1 mmol/L Normal 3.5-5.3 [facility] Comment on above: Performed By: #### 2 4362-6 ####JANETH Galo ([id number])[facility] ([facility])[address] [place] [address] Sodium [Moles/Vol] 138 mmol/L Normal 136-145 [facility] Comment on above: Performed By: #### 2 4362-6 ####JANETH Galo ([id number])[facility] ([facility])[address] [place] [address] Urea nitrogen [Mass/Vol] 12 mg/dL Normal 6-23 [facility] Comment on above: Performed By: #### 2 4362-6 ####JANETH Galo ([id number])[facility] ([facility])[address] [place] [address] VERAB/VERIFY ABORHon 024 ABO group Nom (Bld) A Normal [facility] Comment on above: Order Comment: Thi s is for confirming/verifying history of ABORh on file for transfusion of blood products. If this is not for transfusion, please order an ABO/RH [[id number]]. If you have any questions or unsure what to order, please call the blood bank. Performed By: #### V ERAB ####JANETH Galo ([id number])[facility] ([facility])[address] [place] [address] D Ag Ql (Bld) Positive Normal [facility] Comment on above: Order Comment: Thi s is for confirming/verifying history of ABORh on file for transfusion of blood products. If this is not for transfusion, please order an ABO/RH [[id number]]. If you have any questions or unsure what to order, please call the blood bank. Performed By: #### V ERAB ####JANETH Galo ([id number])[facility] ([facility])[address] [place] [address] VERIFY ABO/Rh Group Teston 1 03-10-2023 ABO group Nom (Bld) A [facility] D Ag Ql (Bld) Positive [facility] XR tomography Unspecified reynaldo dy regionon 01-09-2024 These images are not reportable by radiology and will not be interpreted by Radiologists. IMAGING [place] 12-31-2023 MALIN Telephone (FPWADS) ----- DEIDRA DE LA CRUZ ([id number]) 1970 F Date Time Provider Department 12/31/23 BIJAN ELMORE During your visit today, we recorded the following information about you: Bijan Elmore MD 12/31/2023 8:26 AM Signed Call from , her TSH is high at t 10.4 Will adjust the levothyroxine up to 75 mcg daily. Check TSH in 6 weeks or so. The following approved medication requests have been transmitted electronically. Requested Prescriptions Signed Prescriptions Disp Refills levothyroxine (LEVOXYL) 75 mcg tablet 30 tablet 5 Sig: Take 1 tablet by mouth once daily. Take on empty stomach. For thyroid. Authorizing Provider: BIJAN ELMORE Please let her know. MD Alex Rdz Lisa, LPN 12/31/2023 8:34 AM Signed Can not dial [phone] number from phone. Katie Tripathi RN 12/31/2023 9:29 AM Signed Spoke with pt, reviewed below message. Verbalized understanding, no further questions. Allergies As of Date: 12/31/2023 Noted Allergy Reaction PENICILLIN 06/05/2015 16 - Unknown Date Reviewed: 11/18/2023 Reviewed by: Carlo Miranda LPN - Fully Assessed Reason for Visit: Results [95] Orders [681] Primary Visit Diagnosis:Acquired hypothyroidism [E03.9] Order(s):levothyroxine (LEVOXYL) 75 mcg tabletTake 1 tablet by mouth once daily. Take on empty stomach. For thyroid.Disp: 30 tabletRfl: 5 THYROID STIMULATING HORMONE [SQTSH] Order #: [id number] FUTURE Prescriptions as of 12/31/2023 - levothyroxine (LEVOXYL) 75 mcg tablet Take 1 tablet by mouth once daily. Take on empty stomach. For thyroid. - cloNIDine HCl (CATAPRES) 0.1 mg tablet take 1 tablet by mouth three times a day - clonazePAM (KLONOPIN) 0.5 mg tablet Take 1 tablet by mouth three times a day for 30 days. - promethazine (PHENERGAN) 25 mg tablet Take 1 tablet by mouth every 6 hours as needed. - ibuprofen (MOTRIN) 600 mg tablet Take 1 tablet by mouth every 8 hours as needed for pain. - gabapentin (NEURONTIN) 600 mg tablet Take 1 tablet by mouth three times a day for 90 days. - buPROPion SR (WELLBUTRIN SR) 150 mg 12 hr tablet Take 1 tablet by mouth two times a day. - sertraline (ZOLOFT) 100 mg tablet Take 1 tablet by mouth once daily. Wean as directed. - white petrolatum (AQUAPHOR) 41 % topical ointment Apply to affected area as needed. - baclofen 20 mg tablet Take 1 tablet by mouth three times a day. - acetaminophen (TYLENOL EXTRA STRENGTH) 500 mg tablet Take 2 tablets by mouth every 6 hours as needed for pain. - lidocaine (LIDODERM) 5 % Apply 1 Patch as directed every 24 hours. Remove old patch after 12 hours Location: arm - Mirtazapine (REMERON) 7.5 mg tablet take 1 tablet by mouth at bedtime - levETIRAcetam (KEPPRA) 500 mg tablet take 1 tablet by mouth twice a day - Underpads 23 X 24 pads 1 Each as needed. - famotidine (PEPCID) 20 mg tablet Take 1 tablet by mouth once daily. - Foam Bandage (OPTIFOAM) 4 X 4 bndg Apply to affected area as needed. - amLODIPine (NORVASC) 5 mg tablet amlodipine 5 mg tablet - melatonin 5 mg tablet Take 5 mg by mouth. - methadone 5 mg/5 mL solution Take 5 mL by mouth once daily. Problem List As Of Date 12/31/2023 Noted Resolved Chronic anxiety [F41.9] 06/05/2015 Gastroesophageal reflux disease [K21.9] 06/05/2015 Chronic constipation [K59.09] 06/05/2015 Chronic nausea [R11.0] 06/05/2015 Hepatitis C antibody positive in blood [R76.8] 04/08/2017 Chronic hepatitis C without hepatic coma (HCC) *02/03/2019 Positive urine drug screen [R82.5] 04/30/2019 Debility [R53.81] 04/18/2021 Traumatic injury [T14.90XA] 06/27/2021 Chronic pain syndrome [G89.4] 06/27/2021 Multiple fractures [T07.XXXA] 06/27/2021 Seizures (HCC) [R56.9] 09/18/2021 Prescriptions ordered this encounter Disp Refills Start End LEVOTHYROXINE 75 MCG TABLET 30 t* 5 12/31/2023 Route: ORAL Sig: Take 1 tablet by mouth once daily. Take on empty stomach. For thyroid. Medications Discontinued During This Encounter Prescriptions - levothyroxine (SYNTHROID) 50 mcg tablet (Discontinued) Take 1 tablet by mouth once daily. Encounter Status:Closed by KATIE TRIPATHI on 12/31/23 Normal [facility] Basic metabolic 2000 panelon 12-30-2023 Anion gap [Moles/Vol] 11 mmol/L Normal 10-20 [facility] Comment on above: Performed By: #### 2 4321-2 ####JANETH MCDONALDTZER L ([id number])[facility] ([facility])[address] [place] [address] Calcium [Mass/Vol] 9.1 mg/dL Normal 8.6-10.6 [facility] Comment on above: Performed By: #### 2 4321-2 ####JANETH SCHMOTZER L ([id number])[facility] ([facility])[address] [place] [address] Chloride [Moles/Vol] 101 mmol/L Normal 98-107 [facility] Comment on above: Performed By: #### 2 4321-2 ####JANETH SCHMOTZER L ([id number])[facility] ([facility])[address] [place] [address] CO2 [Moles/Vol] 30 mmol/L Normal 21-32 [facility] Comment on above: Performed By: #### 2 4321-2 ####JANETH SCHMOTZER L ([id number])[facility] ([facility])[address] [place] [address] Creatinine [Mass/Vol] 0.71 mg/dL Normal 0.50-1.05 [facility] Comment on above: Performed By: #### 2 4321-2 ####JANETH SCHMOTZER L ([id number])[facility] ([facility])[address] [place] [address] GFR/1.73 sq M.predicted MDRD (S/P/Bld) [Vol rate/Area] mL/min/{1.73_m2} Normal >60 [facility] Comment on above: Result Comment: Calc ulations of estimated GFR are performed using the 2020 CKD-EPI Study Refit equation without the race variable for the IDMS-Traceable creatinine methods.https://jasn.asnjournals.org/content/early// N.9981487644 Performed By: #### 2 4321-2 ####JANETH Galo ([id number])[facility] ([facility])[address] [place] [address] Glucose [Mass/Vol] 82 mg/dL Normal 74-99 [facility] Comment on above: Performed By: #### 2 4321-2 ####JANETH GRAFF L ([id number])[facility] ([facility])[address] [place] [address] Potassium [Moles/Vol] 5.4 mmol/L High 3.5-5.3 [facility] Comment on above: Performed By: #### 2 4321-2 ####JANETH GRAFF L ([id number])[facility] ([facility])[address] [place] [address] Sodium [Moles/Vol] 137 mmol/L Normal 136-145 [facility] Comment on above: Performed By: #### 2 4321-2 ####JANETH CONNORMOTZLETI L ([id number])[facility] ([facility])[address] [place] [address] Urea nitrogen [Mass/Vol] 13 mg/dL Normal 6-23 [facility] Comment on above: Performed By: #### 2 4321-2 ####JANETH GRAFF L ([id number])[facility] ([facility])[address] [place] [address] Blood type and Indirect anti body screen panel (Bld)on 12-30-2023 ABO group Nom (Bld) A Normal [facility] Comment on above: Performed By: #### 3 4532-2 ####JANETH Galo ([id number])[facility] ([facility])[address] [facility] [place] [address] Blood group antibody screen Ql Negative [facility] Comment on above: Performed By: #### 3 4532-2 ####JANETH Galo ([id number])[facility] ([facility])[address] [facility] [place] [address] D Ag Ql (Bld) Positive [facility] Comment on above: Result Comment: 2nd ABO test required. Order and Collect VERAB Performed By: #### 3 4532-2 ####JANETH Galo ([id number])[facility] ([facility])[address] [facility] [place] [address] CBC panel Auto (Bld)on 12-29 Erythrocyte distribution width (RBC) [Ratio] 15.8 % High 11.5-14.5 [facility] Comment on above: Performed By: #### 5 8410-2 ####JANETH Galo ([id number])[facility] ([facility])[address] [place] [address] Hematocrit (Bld) [Volume fraction] 44.6 % Normal 36.0-46.0 [facility] Comment on above: Performed By: #### 5 8410-2 ####JANETH Galo ([id number])[facility] ([facility])[id number] [place] [address] Hemoglobin (Bld) [Mass/Vol] 13.3 g/dL Normal 12.0-16.0 [facility] Comment on above: Performed By: #### 5 8410-2 ####JANETH Galo ([id number])[facility] ([facility])[id number] [place] [address] MCH (RBC) [Entitic mass] 26.5 pg Normal 26.0-34.0 [facility] Comment on above: Performed By: #### 5 8410-2 ####JANETH Galo ([id number])[facility] ([facility])[address] [place] [address] MCHC (RBC) [Mass/Vol] 29.8 g/dL Low 32.0-36.0 [facility] Comment on above: Performed By: #### 5 8410-2 ####JANETH Galo ([id number])[facility] ([facility])[address] [place] [address] MCV (RBC) [Entitic vol] 89 fL Normal 80-100 [facility] Comment on above: Performed By: #### 5 8410-2 ####JANETH Galo ([id number])[facility] ([facility])[id number] [place] [address] Nucleated RBC/100 WBC (Bld) [Ratio] 0.0 /100 WBCs Normal 0.0-0.0 [facility] Comment on above: Performed By: #### 5 8410-2 ####JANETH Galo ([id number])[facility] ([facility])[address] [place] [address] Platelets (Bld) [#/Vol] 621 x10*3/uL High 150-450 [facility] Comment on above: Performed By: #### 5 8410-2 ####JANETH Galo ([id number])[facility] ([facility])[address] [place] [address] RBC (Bld) [#/Vol] 5.01 x10*6/uL Normal 4.00-5.20 [facility] Comment on above: Performed By: #### 5 8410-2 ####JANETH Galo ([id number])[facility] ([facility])[address] [place] [address] WBC (Bld) [#/Vol] 10.7 x10*3/uL Normal 4.4-11.3 [facility] Comment on above: Performed By: #### 5 8410-2 ####JANETH Galo ([id number])[facility] ([facility])[id number] [place] [address] Staphylococcus aureus.methic illin resistant isolateon 12-30-2023 MRSA isol Org specific cx Ql (Nose) Abnormal [facility] Comment on above: Performed By: #### 5 2969-3 ####JANETH Galo ([id number])[facility] ([facility])[address] [place], [place] [address] TSH WITH REFLEX TO FREE T4 I F ABNORMALon 12-30-2023 TSH Qn 10.40 m[IU]/L High 0.44-3.98 [facility] Comment on above: Order Comment: TSH t esting is performed using different testing methodology at [facility] than at other [facility]. Direct result comparisons should only be made within the same method. Performed By: #### T HYDS ####JANETH Galo ([id number])[facility] ([facility])[address] [place], [place] [address] Thyroxine.freeon 12-30-2023 Free T4 [Mass/Vol] 0.76 ng/dL Low 0.78-1.48 [facility] Comment on above: Order Comment: Thyro xine Free testing is performed using different testing methodology at [facility] than at other [facility]. Direct result comparisons should only be made within the same method. Performed By: #### 3 024-7 ####JANETH Galo ([id number])[facility] ([facility])[address] [place] [address] ECHOon 12-17-2023 CONCLUSIONS: - Exam indication: murmur - The left ventricle is normal in size. Left ventricular systolic function is normal. EF = 68 5% (2D biplane) Normal left ventricular diastolic function. - The right ventricle is normal in size. Right ventricular systolic function is normal. - The left atrial cavity is mildly dilated. - There is mild (1+) tricuspid regurgitation. - The patient has not had a prior [facility] echocardiographic exam for comparison. * * * Final * * * [facility] Echocardiography Report: Transthoracic Echo [facility] Date of service: 12/17/2023 2:03:11 PM Ordering physician: BIJAN ELMORE Indication: murmur Technologist: Beverly Manrique RDCS Interpreting physician: Kathryn Campos MD PATIENT: Name: MS. DEIDRA DE LA CRUZ : 1970 Age: 53 years Gender: F Primary rhythm: sinus. Height: 165.10 cm BSA: 1.96 m Weight: 83.92 kg BMI: 30.8 kg/m Heart rate 89 bpm Blood pressure 160/82 mmHg Color Doppler was utilized to interrogate the cardiac valves assessed and spectral Doppler was utilized to determine the flow velocities and pressure gradients reported in this exam. Myocardial strain analysis was performed in this exam to aid in the assessment of cardiac function. MEASUREMENTS: Value Indexed Normal Max aortic dimension 3.0 cm Ao < 3.8 Left atrium diameter 4.1 cm (2D) LAd < 4 LV ID (diastole) 4.5 cm (2D) 2.30 cm/m LV ID (systole) 3.0 cm (2D) 1.52 cm/m IVS, leaflet tips 0.8 cm (2D) Posterior wall thickness 0.9 cm (2D) Left ventricular mass 119 g (2D) 61 g/m Global peak long strain -21.1 % LV stroke volume 72 ml (2D biplane) LV end diastolic volume 106 ml (2D biplane) 54.0 ml/m 29<=EDVi<62 LV end systolic volume 33 ml (2D biplane) 17.1 ml/m Ejection Fraction 68 % (2D biplane) EF > 54 FINDINGS: LEFT VENTRICLE The left ventricle is normal in size. Left ventricular systolic function is normal. Global LV myocardial strain is normal. Normal left ventricular diastolic function. Mitral annular lateral E/e': 6.3. Mitral annular septal E/e': 6.1. Wall Motion: All scored segments are normal. RIGHT VENTRICLE The right ventricle is normal in size. Right ventricular systolic function is normal. Tricuspid annular displacement is 2.7 cm. Estimated right ventricular systolic pressure is 42 mmHg consistent with mild pulmonary hypertension. Estimated right atrial pressure is 3 mmHg based on IVC assessment. LEFT ATRIUM The left atrial cavity is mildly dilated. Pulmonary Veins: The pulmonary venous pattern showed normal systolic flow. RIGHT ATRIUM The right atrial cavity is normal in size. Inferior Vena Cava: The inferior vena cava appears normal measuring 1.2 cm. The vessel decreases greater than 50 percent with inspiration. MITRAL VALVE There is trace mitral valve regurgitation. There is mild thickening. The pressure half time is 49 msec. The peak mitral E/A ratio is 1.08. The mitral flow deceleration time is 170 msec. TRICUSPID VALVE The tricuspid valve leaflets are structurally normal. There is mild (1+) tricuspid valve regurgitation. AORTIC VALVE There is trace (trace - 1+) aortic valve regurgitation. Tricuspid aortic valve. There is mild calcification. The peak gradient is 12 mmHg (peak velocity = 174.0 cm/s). The LVOT diameter is 1.8 cm. PULMONIC VALVE The pulmonic valve was not seen or not interrogated. There is trace pulmonic valve regurgitation. AORTA The visualized aorta is normal in size. Measurements - Aortic valve annulus 1.8 cm. Mid ascending aorta 3.0 cm. PULMONARY ARTERIES The pulmonary arteries are unseen or not interrogated. INTERVENTRICULAR SEPTUM There is normal motion of the interventricular septum. PERICARDIUM There is no pericardial effusion. [facility] Echocardiography Echocardiography Rep ort: Transthoracic Echo [facility] Date of service: 12/17/2023 2:03:11 PM Ordering physician: BIJAN ELMORE Indication: murmur Technologist: Beverly Manrique [facility] Interpreting physician: Kathryn Campos MD PATIENT: Name: MS. DEIDRA DE LA CRUZ : 1970 Age: 53 years Gender: F Primary rhythm: sinus. Height: 165.10 cm BSA: 1.96 m Weight: 83.92 kg BMI: 30.8 kg/m Heart rate 89 bpm Blood pressure 160/82 mmHg Color Doppler was utilized to interrogate the cardiac valves assessed and spectral Doppler was utilized to determine the flow velocities and pressure gradients reported in this exam. Myocardial strain analysis was performed in this exam to aid in the assessment of cardiac function. MEASUREMENTS: Value Indexed Normal Max aortic dimension 3.0 cm Ao < 3.8 Left atrium diameter 4.1 cm (2D) LAd < 4 LV ID (diastole) 4.5 cm (2D) 2.30 cm/m LV ID (systole) 3.0 cm (2D) 1.52 cm/m IVS, leaflet tips 0.8 cm (2D) Posterior wall thickness 0.9 cm (2D) Left ventricular mass 119 g (2D) 61 g/m Global peak long strain -21.1 % LV stroke volume 72 ml (2D biplane) LV end diastolic volume 106 ml (2D biplane) 54.0 ml/m 29<=EDVi<62 LV end systolic volume 33 ml (2D biplane) 17.1 ml/m Ejection Fraction 68 % (2D biplane) EF > 54 FINDINGS: LEFT VENTRICLE The left ventricle is normal in size. Left ventricular systolic function is normal. Global LV myocardial strain is normal. Normal left ventricular diastolic function. Mitral annular lateral E/e': 6.3. Mitral annular septal E/e': 6.1. Wall Motion: All scored segments are normal. RIGHT VENTRICLE The right ventricle is normal in size. Right ventricular systolic function is normal. Tricuspid annular displacement is 2.7 cm. Estimated right ventricular systolic pressure is 42 mmHg consistent with mild pulmonary hypertension. Estimated right atrial pressure is 3 mmHg based on IVC assessment. LEFT ATRIUM The left atrial cavity is mildly dilated. Pulmonary Veins: The pulmonary venous pattern showed normal systolic flow. RIGHT ATRIUM The right atrial cavity is normal in size. Inferior Vena Cava: The inferior vena cava appears normal measuring 1.2 cm. The vessel decreases greater than 50 percent with inspiration. MITRAL VALVE There is trace mitral valve regurgitation. There is mild thickening. The pressure half time is 49 msec. The peak mitral E/A ratio is 1.08. The mitral flow deceleration time is 170 msec. TRICUSPID VALVE The tricuspid valve leaflets are structurally normal. There is mild (1+) tricuspid valve regurgitation. AORTIC VALVE There is trace (trace - 1+) aortic valve regurgitation. Tricuspid aortic valve. There is mild calcification. The peak gradient is 12 mmHg (peak velocity = 174.0 cm/s). The LVOT diameter is 1.8 cm. PULMONIC VALVE The pulmonic valve was not seen or not interrogated. There is trace pulmonic valve regurgitation. AORTA The visualized aorta is normal in size. Measurements - Aortic valve annulus 1.8 cm. Mid ascending aorta 3.0 cm. PULMONARY ARTERIES The pulmonary arteries are unseen or not interrogated. INTERVENTRICULAR SEPTUM There is normal motion of the interventricular septum. PERICARDIUM There is no pericardial effusion. CONCLUSIONS: - Exam indication: murmur - The left ventricle is normal in size. Left ventricular systolic function is normal. EF = 68 5% (2D biplane) Normal left ventricular diastolic function. - The right ventricle is normal in size. Right ventricular systolic function is normal. - The left atrial cavity is mildly dilated. - There is mild (1+) tricuspid regurgitation. - The patient has not had a prior [facility] echocardiographic exam for comparison. * * * Final * * * [facility] : [id number] [facility] BR[facility]NEY Telephone (TAVARES) ----- DEIDRA DE LA CRUZ ([id number]) 1970 F Date Time Provider Department 12/15/23 BIJAN ELMORE During your visit today, we recorded the following information about you: Elsa Torres 12/15/2023 3:22 PM Signed Hina, with [facility], called on patient's behalf to request an order for a wheelchair. Said patient had purchased one on her on in the past, but it is no longer functioning. Please fax order and chart notes to: [facility] [phone] [facility] phone: [phone]/ Carlo Miranda LPN 12/15/2023 3:[address] order for wheelchair Cheryl Araujo APRN.MALI 12/15/2023 5:02 PM Signed Rx for wheelchair placed in outbox, please fax with most recent office visit note Cheryl Araujo APRN.Carlo Ott LPN 12/15/2023 5:15 PM Addendum Fax sent to [phone] Allergies As of Date: 12/15/2023 Noted Allergy Reaction PENICILLIN 06/05/2015 16 - Unknown Date Reviewed: 11/18/2023 Reviewed by: Carlo Miranda LPN - Fully Assessed Reason for Visit: Order for wheelchair [Other] Primary Visit Diagnosis: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 - promethazine (PHENERGAN) 25 mg tablet Take 1 tablet by mouth every 6 hours as needed. - ibuprofen (MOTRIN) 600 mg tablet Take 1 tablet by mouth every 8 hours as needed for pain. - levothyroxine (SYNTHROID) 50 mcg tablet Take 1 tablet by mouth once daily. - gabapentin (NEURONTIN) 600 mg tablet Take 1 tablet by mouth three times a day for 90 days. - buPROPion SR (WELLBUTRIN SR) 150 mg 12 hr tablet Take 1 tablet by mouth two times a day. - sertraline (ZOLOFT) 100 mg tablet Take 1 tablet by mouth once daily. Wean as directed. - white petrolatum (AQUAPHOR) 41 % topical ointment Apply to affected area as needed. - baclofen 20 mg tablet Take 1 tablet by mouth three times a day. - acetaminophen (TYLENOL EXTRA STRENGTH) 500 mg tablet Take 2 tablets by mouth every 6 hours as needed for pain. - cloNIDine HCl (CATAPRES) 0.1 mg tablet Take 1 tablet by mouth three times a day. - lidocaine (LIDODERM) 5 % Apply 1 Patch as directed every 24 hours. Remove old patch after 12 hours Location: arm - Mirtazapine (REMERON) 7.5 mg tablet take 1 tablet by mouth at bedtime - levETIRAcetam (KEPPRA) 500 mg tablet take 1 tablet by mouth twice a day - Underpads 23 X 24 pads 1 Each as needed. - famotidine (PEPCID) 20 mg tablet Take 1 tablet by mouth once daily. - Foam Bandage (OPTIFOAM) 4 X 4 bndg Apply to affected area as needed. - amLODIPine (NORVASC) 5 mg tablet amlodipine 5 mg tablet - melatonin 5 mg tablet Take 5 mg by mouth. - methadone 5 mg/5 mL solution Take 5 mL by mouth once daily. Problem List As Of Date 12/15/2023 Noted Resolved Chronic anxiety [F41.9] 06/05/2015 Gastroesophageal reflux disease [K21.9] 06/05/2015 Chronic constipation [K59.09] 06/05/2015 Chronic nausea [R11.0] 06/05/2015 Hepatitis C antibody positive in blood [R76.8] 04/08/2017 Chronic hepatitis C without hepatic coma (HCC) *02/03/2019 Positive urine drug screen [R82.5] 04/30/2019 Debility [R53.81] 04/18/2021 Traumatic injury [T14.90XA] 06/27/2021 Chronic pain syndrome [G89.4] 06/27/2021 Multiple fractures [T07.XXXA] 06/27/2021 Seizures (HCC) [R56.9] 09/18/2021 Encounter Status:Closed by CARLO MIRANDA on 12/15/23 Normal [facility] CT KNEE RIGHT WO IV CONTRAST on 12-15-2023 CT KNEE RIGHT WO IV CONTRAST Interpreted By: Adalberto Daley, STUDY: CT of the right knee and tibia and fibula intravenous contrast dated 12/15/2023. INDICATION: Signs/Symptoms:traumatic arthritis; Signs/Symptoms:h/o tibial palteau fracture COMPARISON: None. ACCESSION NUMBER(S): [id number]; [id number] ORDERING CLINICIAN: CRUZ GOODMAN TECHNIQUE: Axial CT of the right knee and tibia and fibula was performed without intravenous contrast. Sagittal and coronal two-dimensional reformats were obtained. FINDINGS: OSSEOUS STRUCTURES AND JOINTS: The bones are demineralized. No acute fracture or dislocation is evident. There is patella Jyoti. There is marginal patellar osteophyte formation and enthesophyte formation. There is marginal lateral femorotibial osteophyte formation. There is loss of the smooth contour to the subchondral bone plate of the medial femoral condyle with multifocal surface irregularity and subchondral sclerosis. There is a prominent concavity in the medial tibial plateau with prominent gap to the subchondral bone plate of the medial tibial plateau with a depth of the concavity measuring up to approximately 3.5 cm from the joint line as seen on the CT examinations. There is a thin rim of bone stock of the medial tibial plateau and proximal tibial metaphysis remaining. There is lateral plate and screw fixation and inter fragmentary screw fixation the proximal tibia of note multiple screws of the plate traverse through the region the concavity in the medial tibial plateau/proximal tibial metaphysis with the tips having purchase in the thin rim of remaining bone stock. There is a tibial intramedullary nail with proximal and distal interlocking fixation screws. The tips of the distal screws cause some remodeling of this medial aspect of the distal fibular metaphyseal cortex. There is prior comminuted fracturing the mid to distal tibial diaphysis. Although some developing central osseous bridging is seen along the lateral fracture margin at image 30 in the coronal plane, overall no significant central or peripheral osseous bridging is evident and there are geographic regions of lucency in the bone stock. There is prior comminuted fracturing the head of the fibula into the proximal fibular metaphysis. Although there are some region of corticated internal margin lucency in the fibular head overall there appears to be central osseous bridging. There is also osseous cross bridging with the proximal tibial metaphysis. There is prior fracturing of the distal fibular diaphysis with central osseous bridging. There is a small volume of fluid in the knee joint. SOFT TISSUES: At the knee there appears to be muscle in the general region of the patellar tendon into the proximal thigh with lack of significant overlying skin. This is likely related to a musculocutaneous flap. Mild generalized atrophy is seen in the musculature. Scarring is seen in the subcutaneous tissues. There is thickening of the skin of the anterior leg greatest of the anteromedial leg where there is soft tissue contour irregularity and confluence increased soft tissue density extending down to the surface of the bone at the prior tibial fracture site such as seen at image 131 of the axial 24 of the coronal and 56 of the sagittal plane. This is otherwise not well assessed on this noncontrast examination. Multiple clips are seen in the subcutaneous tissues. IMPRESSION: 1. Surgical fixation for prior fracture the mid to distal tibial diaphysis with some minimal central osseous bridging along the lateral margin of the fracture with otherwise no significant central or peripheral osseous bridging evident. Anterior medial to this in the soft tissues and at the skin there is soft tissue deformity with underlying confluence increased density from the skin down to the bone surface. Although this could be related to scarring knowledge of any signs of infection in this location may be helpful. MRI may be helpful to assess for any soft tissue collection or fistula tract to the site of the prior fracturing. 2. Loss of bone stock to the medial tibial plateau and proximal medial tibial metaphysis with prominent concavity. There is appositional loss smooth contour to the medial femoral condyle with surface irregularity. This may be related to prior injury, surgery, and/or degenerative change. A component of the change of the subchondral bone plate of the medial femoral condyle may be sequelae of prior infection. 3. Patella Jyoti with changes to the soft tissues inferior to the patella which may represent prior musculocutaneous grafting although knowledge patient's surgical history is needed. 4. Prior fracturing of the head of the fibula into the proximal metaphysis of the fibula and the distal fibular diaphysis overall with the appearance of central osseous bridging. MACRO: no (more content not included)... [facility] CT TIBIA FIBULA RIGHT WO IV CONTRASTon 12-15-2023 CT TIBIA FIBULA RIGHT WO IV CONTRAST Interpreted By: Adalberto Daley, STUDY: CT of the right knee and tibia and fibula intravenous contrast dated 12/15/2023. INDICATION: Signs/Symptoms:traumatic arthritis; Signs/Symptoms:h/o tibial palteau fracture COMPARISON: None. ACCESSION NUMBER(S): [id number]; [id number] ORDERING CLINICIAN: CRUZ GOODMAN TECHNIQUE: Axial CT of the right knee and tibia and fibula was performed without intravenous contrast. Sagittal and coronal two-dimensional reformats were obtained. FINDINGS: OSSEOUS STRUCTURES AND JOINTS: The bones are demineralized. No acute fracture or dislocation is evident. There is patella [place]. There is marginal patellar osteophyte formation and enthesophyte formation. There is marginal lateral femorotibial osteophyte formation. There is loss of the smooth contour to the subchondral bone plate of the medial femoral condyle with multifocal surface irregularity and subchondral sclerosis. There is a prominent concavity in the medial tibial plateau with prominent gap to the subchondral bone plate of the medial tibial plateau with a depth of the concavity measuring up to approximately 3.5 cm from the joint line as seen on the CT examinations. There is a thin rim of bone stock of the medial tibial plateau and proximal tibial metaphysis remaining. There is lateral plate and screw fixation and inter fragmentary screw fixation the proximal tibia of note multiple screws of the plate traverse through the region the concavity in the medial tibial plateau/proximal tibial metaphysis with the tips having purchase in the thin rim of remaining bone stock. There is a tibial intramedullary nail with proximal and distal interlocking fixation screws. The tips of the distal screws cause some remodeling of this medial aspect of the distal fibular metaphyseal cortex. There is prior comminuted fracturing the mid to distal tibial diaphysis. Although some developing central osseous bridging is seen along the lateral fracture margin at image 30 in the coronal plane, overall no significant central or peripheral osseous bridging is evident and there are geographic regions of lucency in the bone stock. There is prior comminuted fracturing the head of the fibula into the proximal fibular metaphysis. Although there are some region of corticated internal margin lucency in the fibular head overall there appears to be central osseous bridging. There is also osseous cross bridging with the proximal tibial metaphysis. There is prior fracturing of the distal fibular diaphysis with central osseous bridging. There is a small volume of fluid in the knee joint. SOFT TISSUES: At the knee there appears to be muscle in the general region of the patellar tendon into the proximal thigh with lack of significant overlying skin. This is likely related to a musculocutaneous flap. Mild generalized atrophy is seen in the musculature. Scarring is seen in the subcutaneous tissues. There is thickening of the skin of the anterior leg greatest of the anteromedial leg where there is soft tissue contour irregularity and confluence increased soft tissue density extending down to the surface of the bone at the prior tibial fracture site such as seen at image 131 of the axial 24 of the coronal and 56 of the sagittal plane. This is otherwise not well assessed on this noncontrast examination. Multiple clips are seen in the subcutaneous tissues. IMPRESSION: 1. Surgical fixation for prior fracture the mid to distal tibial diaphysis with some minimal central osseous bridging along the lateral margin of the fracture with otherwise no significant central or peripheral osseous bridging evident. Anterior medial to this in the soft tissues and at the skin there is soft tissue deformity with underlying confluence increased density from the skin down to the bone surface. Although this could be related to scarring knowledge of any signs of infection in this location may be helpful. MRI may be helpful to assess for any soft tissue collection or fistula tract to the site of the prior fracturing. 2. Loss of bone stock to the medial tibial plateau and proximal medial tibial metaphysis with prominent concavity. There is appositional loss smooth contour to the medial femoral condyle with surface irregularity. This may be related to prior injury, surgery, and/or degenerative change. A component of the change of the subchondral bone plate of the medial femoral condyle may be sequelae of prior infection. 3. Patella Jyoti with changes to the soft tissues inferior to the patella which may represent prior musculocutaneous grafting although knowledge patient's surgical history is needed. 4. Prior fracturing of the head of the fibula into the proximal metaphysis of the fibula and the distal fibular diaphysis overall with the appearance of central osseous bridging. MACRO: no (more content not included)... [facility] 12-10-2023 [facility] Telephone (FPWADS) ----- DEIDRA DE LA CRUZ ([id number]) 1970 F Date Time Provider Department 12/10/23 BIJAN ELMORE During your visit today, we recorded the following information about you: Elsa Torres 12/10/2023 11:22 AM Signed Patient said her clonazepam rx was incorrectly sent to [facility] mail order pharmacy. They told her it won't get to her for another 10 days. Wants to know if it can be switched to [facility] in [facility]. She would like a call back at [phone] when sent. Bijan Elmore MD 12/10/2023 12:04 PM Signed The following approved medication requests have been transmitted electronically. Requested Prescriptions Signed Prescriptions Disp Refills clonazePAM (KLONOPIN) 0.5 mg tablet 90 tablet 0 Sig: Take 1 tablet by mouth three times a day for 30 days. Authorizing Provider: BIJAN ELMORE MD Hummel, Megan, APRN.HAND PLUG SHAPER 12/10/2023 1:04 PM Signed Medication sent to [facility] Javier Araujo APRN.HAND PLUG SHAPER Carlo Miranda LPN 12/10/2023 1:11 PM Signed Called pt, left VM. Mychart message sent as well. Allergies As of Date: 12/10/2023 Noted Allergy Reaction PENICILLIN 06/05/2015 16 - Unknown Date Reviewed: 11/18/2023 Reviewed by: Carlo Miranda LPN - Fully Assessed Reason for Visit: Rx sent to wrong pharmacy [Other] Visit Diagnosis:Chronic anxiety [F41.9] Order(s):clonazePAM (KLONOPIN) 0.5 mg tabletTake 1 tablet by mouth three times a day for 30 days.Disp: 90 tabletRfl: 0 Prescriptions as of 12/10/2023 - clonazePAM (KLONOPIN) 0.5 mg tablet Take 1 tablet by mouth three times a day for 30 days. - promethazine (PHENERGAN) 25 mg tablet Take 1 tablet by mouth every 6 hours as needed. - ibuprofen (MOTRIN) 600 mg tablet Take 1 tablet by mouth every 8 hours as needed for pain. - levothyroxine (SYNTHROID) 50 mcg tablet Take 1 tablet by mouth once daily. - gabapentin (NEURONTIN) 600 mg tablet Take 1 tablet by mouth three times a day for 90 days. - buPROPion SR (WELLBUTRIN SR) 150 mg 12 hr tablet Take 1 tablet by mouth two times a day. - sertraline (ZOLOFT) 100 mg tablet Take 1 tablet by mouth once daily. Wean as directed. - white petrolatum (AQUAPHOR) 41 % topical ointment Apply to affected area as needed. - baclofen 20 mg tablet Take 1 tablet by mouth three times a day. - acetaminophen (TYLENOL EXTRA STRENGTH) 500 mg tablet Take 2 tablets by mouth every 6 hours as needed for pain. - cloNIDine HCl (CATAPRES) 0.1 mg tablet Take 1 tablet by mouth three times a day. - lidocaine (LIDODERM) 5 % Apply 1 Patch as directed every 24 hours. Remove old patch after 12 hours Location: arm - Mirtazapine (REMERON) 7.5 mg tablet take 1 tablet by mouth at bedtime - levETIRAcetam (KEPPRA) 500 mg tablet take 1 tablet by mouth twice a day - Underpads 23 X 24 pads 1 Each as needed. - famotidine (PEPCID) 20 mg tablet Take 1 tablet by mouth once daily. - Foam Bandage (OPTIFOAM) 4 X 4 bndg Apply to affected area as needed. - amLODIPine (NORVASC) 5 mg tablet amlodipine 5 mg tablet - melatonin 5 mg tablet Take 5 mg by mouth. - methadone 5 mg/5 mL solution Take 5 mL by mouth once daily. Problem List As Of Date 12/10/2023 Noted Resolved Chronic anxiety [F41.9] 06/05/2015 Gastroesophageal reflux disease [K21.9] 06/05/2015 Chronic constipation [K59.09] 06/05/2015 Chronic nausea [R11.0] 06/05/2015 Hepatitis C antibody positive in blood [R76.8] 04/08/2017 Chronic hepatitis C without hepatic coma (HCC) *02/03/2019 Positive urine drug screen [R82.5] 04/30/2019 Debility [R53.81] 04/18/2021 Traumatic injury [T14.90XA] 06/27/2021 Chronic pain syndrome [G89.4] 06/27/2021 Multiple fractures [T07.XXXA] 06/27/2021 Seizures (HCC) [R56.9] 09/18/2021 Prescriptions ordered this encounter Disp Refills Start End CLONAZEPAM 0.5 MG TABLET 90 t* 0 12/10/2023 01/09/2024 Route: ORAL Sig: Take 1 tablet by mouth three times a day for 30 days. Medications Discontinued During This Encounter Prescriptions - clonazePAM (KLONOPIN) 0.5 mg tablet (Discontinued) Take 1 tablet by mouth three times a day for 30 days. Encounter Status:Closed by FRANCISCO ELMORE on 12/10/23 Normal [facility] C reactive proteinon 024 CRP [Mass/Vol] 3.77 mg/dL High <1.00 [facility] Comment on above: Performed By: #### [phone] ####JANETH Galo ([id number])[facility] ([facility])[address] [place] [address] [place] [address] ESR Westergren method (Bld) [Velocity]on 12-01-2023 ESR (Bld) [Velocity] 55 mm/h High 0-30 [facility] Comment on above: Performed By: #### [phone] ####JANETH Galo ([id number])[facility] ([facility])[id number] [place], [place] [id number] CNPSridevi 11-21-2023 CNPN Telephone ([facility] [place]) ----- DEIDRA DE LA CRUZ ([id number]) 1970 F Date Time Provider Department 11/21/[address] [facility] During your visit today, we recorded the following information about you: Costa Johnson LPN 11/21/2023 2:05 PM Signed Received 11/21/2023 from [employer]. Placed in provider's inbox for review. Route to [place] for scanning. Allergies As of Date: 11/21/2023 Noted Allergy Reaction PENICILLIN 06/05/2015 16 - Unknown Date Reviewed: 11/18/2023 Reviewed by: Carlo Miranda LPN - Fully Assessed Reason for Visit: Received Outside Medical Records [[id number]] Cmt: [employer] Order for incontinence supplies 11/21/2023 Prescriptions as of 11/21/2023 - ibuprofen (MOTRIN) 600 mg tablet Take 1 tablet by mouth every 8 hours as needed for pain. - levothyroxine (SYNTHROID) 50 mcg tablet Take 1 tablet by mouth once daily. - clonazePAM (KLONOPIN) 0.5 mg tablet Take 1 tablet by mouth three times a day for 30 days. - gabapentin (NEURONTIN) 600 mg tablet Take 1 tablet by mouth three times a day for 90 days. - buPROPion SR (WELLBUTRIN SR) 150 mg 12 hr tablet Take 1 tablet by mouth two times a day. - sertraline (ZOLOFT) 100 mg tablet Take 1 tablet by mouth once daily. Wean as directed. - promethazine (PHENERGAN) 25 mg tablet take 1 tablet by mouth every 6 hours if needed - white petrolatum (AQUAPHOR) 41 % topical ointment Apply to affected area as needed. - baclofen 20 mg tablet Take 1 tablet by mouth three times a day. - acetaminophen (TYLENOL EXTRA STRENGTH) 500 mg tablet Take 2 tablets by mouth every 6 hours as needed for pain. - cloNIDine HCl (CATAPRES) 0.1 mg tablet Take 1 tablet by mouth three times a day. - lidocaine (LIDODERM) 5 % Apply 1 Patch as directed every 24 hours. Remove old patch after 12 hours Location: arm - Mirtazapine (REMERON) 7.5 mg tablet take 1 tablet by mouth at bedtime - levETIRAcetam (KEPPRA) 500 mg tablet take 1 tablet by mouth twice a day - Underpads 23 X 24 pads 1 Each as needed. - famotidine (PEPCID) 20 mg tablet Take 1 tablet by mouth once daily. - Foam Bandage (OPTIFOAM) 4 X 4 bndg Apply to affected area as needed. - amLODIPine (NORVASC) 5 mg tablet amlodipine 5 mg tablet - melatonin 5 mg tablet Take 5 mg by mouth. - methadone 5 mg/5 mL solution Take 5 mL by mouth once daily. Problem List As Of Date 11/21/2023 Noted Resolved Chronic anxiety [F41.9] 06/05/2015 Gastroesophageal reflux disease [K21.9] 06/05/2015 Chronic constipation [K59.09] 06/05/2015 Chronic nausea [R11.0] 06/05/2015 Hepatitis C antibody positive in blood [R76.8] 04/08/2017 Chronic hepatitis C without hepatic coma (HCC) *02/03/2019 Positive urine drug screen [R82.5] 04/30/2019 Debility [R53.81] 04/18/2021 Traumatic injury [T14.90XA] 06/27/2021 Chronic pain syndrome [G89.4] 06/27/2021 Multiple fractures [T07.XXXA] 06/27/2021 Seizures (HCC) [R56.9] 09/18/2021 Encounter Status:Closed by COSTA JOHNSON on 11/21/23 [facility] CNOVon 11-18-2023 CNOV Office Visit (FPWADS ) ----- DEIDRA DE LA CRUZ ([id number]) 1970 F Date Time Provider Department 11/18/23 10:40 AM BIJAN ELMORE FPWADS During your visit today, we recorded the following information about you: Pulse Blood pressure Height 82/minute 128/83 1.651 m Bijan Elmore MD 11/18/2023 2:37 PM Signed CHIEF COMPLAINT No chief complaint on file. HISTORY OF PRESENT ILLNESS Deidra De La Cruz is a 53 year old female who presents here today for follow up. I last saw this patient on 04/11/2023. 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 - Plans to have reconstruction surgery in late December - Has an appointment later this month with ortho surgeon to go over surgical/recovery plan Hypertension - Currently managed on Amlodipine 5 mg tablet once daily - BP slightly elevated today in office - Does not monitor BP at home - Last 3 Encounter BP Readings: Date: BP: 11/18/2023 128/83 04/11/2023 130/83 12/26/2022 141/90 Tobacco Use - Is still smoking cigarettes - States that she does not smoke very much Health Maintenance Due for Cervical Cancer Screening Due for Hep B Vaccine (3 of 3- Hep B Twinrix 3-dose series) Due for Hep A Vaccine (3 of 3- Hep A Twinrix risk 3-dose series) Due for DTaP, Tdap, Td Vaccine (1- Tdap) Due for Meningococcal B Vaccine (2 of 4- Increased Risk Bexsero 2-dose series) Due for Pneumococcal Vaccine (2 of 2- PPSV23 or PCV20) Due for Influenza Vaccine (1) Due for Meningococcal Conjugate Vaccine (1- Risk 2-dose series) Due for Depression Screening Due for Colorectal Cancer Screening Due for Shingrix Vaccine (1 of 2) Due for Covid-19 Vaccine ( season) Labs reviewed. Past medical history, appointments, medications, allergies reviewed. REVIEW OF SYSTEMS General: Feels well, no weight changes, fevers or chills. HEENT: No sinus congestion, earache, sore throat. Cardiac: No chest pain, palpitations Resp: No cough, wheeze, shortness of breath GI: No reflux symptoms, food intolerance, bowel changes. : No urinary frequency, dysuria. MS: +left hip pain +right knee pain PAST MEDICAL HISTORY PAST MEDICAL HISTORY Diagnosis Date Narcotic addiction (HCC) remote heroin, methadone since ~1999 Subarachnoid hemorrhage (HCC) PHYSICAL EXAMINATION BP 128/83 Pulse 82 Ht 165.1 cm (5' 5) LMP 02/17/2020 SpO2 95% BMI 30.79 kg/m? General: Alert, well developed, well nourished, no distress, pleasant and cooperative. Obese. Enotropia, eyes. Heart: Regular rate and rhythm. Normal S1 and S2. No murmurs, rubs, or gallops. Lungs: Clear to auscultation bilaterally. No respiratory distress. No wheezes, rales, or rhonchi. Abdomen: Soft, non-tender, no distention. Extremities: Feet/ankles without edema, posterior tibial pulses full and symmetrical. Data Reviewed Previous labs reviewed in Epic Assessment/Plan (M12.552) Traumatic arthritis of left hip (primary encounter diagnosis) (Z96.642) Status post left hip replacement Comment: Following with ortho. Plans to have reconstruction surgery in late December. Due for routine labs in December Plan: COMPLETE BLOOD COUNT Return to office in 1 month for pre-operative clearance visit. Hep c history, no recent RNA check Hep c rna ordered. (E03.9) Acquired hypothyroidism Comment: Stable. Due for routine lab in December Plan: THYROID STIMULATING HORMONE (F17.210) Continuous dependence on cigarette smoking Comment: Has reduced use Plan: Encouraged smoking cessation (G56.01) Carpal tunnel syndrome, right Comment: Stable Plan: Continue current regimen (I10) Essential hypertension Comment: Slightly elevated today in office. Due for routine labs in December. Plan: COMPREHENSIVE METABOLIC PANEL, LIPID PANEL BASIC, COMPLETE BLOOD COUNT, ECG COMPLETE, ECHO Continue current regimen Encouraged her to monitor BP at home (F41.9) Chronic anxiety Comment: Stable Plan: Continue current regimen (R01.1) Newly recognized heart murmur Comment: Present on exam today. Will obtain ecg and echo Plan: ECG COMPLETE, ECHO ECG - normal sinus rhythm, normal ECG Requested Prescriptions Signed Prescriptions Disp Refills ibuprofen (MOTRIN) 600 mg tablet 90 tablet 2 Sig: Take 1 tablet by mouth every 8 hours as needed for pain. levothyroxine (SYNTHROID) 50 mcg tablet 90 tablet 1 Sig: Take 1 tablet by mouth once daily. RTO: 1 month Scribe Attestation: By signing my name below, Amarilis Khanna, attest that this documentation has been prepared under the direction and in the presence of Francisco Elmore M.D. Electronically Signed: Shanika Gustafson. November 18, 2023 10:38 AM Provider Attestation: Bijan Khanna MD, personally performed the services described in this documentation. All medical record entries made by the scribe were at my direction and in my telephonic presence (more content not included)... Normal [facility] ECG COMPLETEon 11-18-2023 ECG COMPLETE Ventricular Rate : 7 8 BPM Atrial Rate : 78 BPM P-R Interval : 146 ms QRS Duration : 82 ms Q-T Interval : 388 ms QTC Calculation(Bazett) : 442 ms Calculated P [place] : 37 degrees Calculated R [place] : 36 degrees Calculated T [place] : 21 degrees NORMAL SINUS RHYTHM NORMAL ECG NO PREVIOUS ECGS AVAILABLE Confirmed by FRANCISCO ALVARADO M.D. ([id number]) on 11/19/2023 4:28:43 PM NAME : DEIDRA DE LA CRUZ PID : [id number] : 1970 Gender : Female Race : ORD : [id number] Procedure Date : Nov 18 2023 10:19:49 Edit Date : Nov 19 2023 16:28:44 Diagnosis: NORMAL SINUS RHYTHM NORMAL ECG NO PREVIOUS ECGS AVAILABLE Confirmed by FRANCISCO ALVARADO M.D. ([id number]) on 11/19/2023 4:28:43 PM Test Reason : Location : [address] [place] [address] Overread By : FRANCISCO ALVARADO M.D. Edited By : FRANCISCO ALVARADO M.D. Referred By : SELF, Acquired by : CARLO MIRANDA Normal [facility] XR KNEE RIGHT 1-2 VIEWSon XR KNEE RIGHT 1-2 VIEWS Normal [facility] XR TIBIA FIBULA RIGHT 2 VIEW Son 08-25-2023 XR TIBIA FIBULA RIGHT 2 VIEWS [facility] CNPNon 08-19-2023 [facility] Telephone ([facility]) ----- DEIDRA DE LA CRUZ ([id number]) 1970 F Date Time Provider Department 08/19/23 BIJAN ELMORE During your visit today, we recorded the following information about you: Carlo Miranda LPN 08/19/2023 3:20 PM Signed Received incontinence supply orders from [employer]. Placed in provider's inbox for review. Route to [place] fax Carlo Miranda LPN 08/19/2023 5:49 PM Signed Fax sent Allergies As of Date: 08/19/2023 Noted Allergy Reaction PENICILLIN 06/05/2015 16 - Unknown Date Reviewed: 04/11/2023 Reviewed by: Costa Johnson LPN - Fully Assessed Reason for Visit: Orders [191] Cmt: [employer] Prescriptions as of 08/19/2023 - promethazine (PHENERGAN) 25 mg tablet Take 1 tablet by mouth every 6 hours as needed. - clonazePAM (KLONOPIN) 0.5 mg tablet Take 1 tablet by mouth three times a day for 30 days. - cloNIDine HCl (CATAPRES) 0.1 mg tablet Take 1 tablet by mouth three times a day. - buPROPion SR (WELLBUTRIN SR) 150 mg 12 hr tablet take 1 tablet by mouth twice a day - baclofen 20 mg tablet Take 1 tablet by mouth three times a day. - ibuprofen (MOTRIN) 600 mg tablet Take 1 tablet by mouth every 8 hours as needed for pain. - lidocaine (LIDODERM) 5 % Apply 1 Patch as directed every 24 hours. Remove old patch after 12 hours Location: arm - sertraline (ZOLOFT) 100 mg tablet Take 1 tablet by mouth once daily. Wean as directed. - Mirtazapine (REMERON) 7.5 mg tablet take 1 tablet by mouth at bedtime - white petrolatum (AQUAPHOR) 41 % topical ointment Apply to affected area as needed. - gabapentin (NEURONTIN) 600 mg tablet Take 1 tablet by mouth three times a day for 90 days. - levETIRAcetam (KEPPRA) 500 mg tablet take 1 tablet by mouth twice a day - acetaminophen (TYLENOL EXTRA STRENGTH) 500 mg tablet Take 2 tablets by mouth every 6 hours as needed for pain. - Underpads 23 X 24 pads 1 Each as needed. - famotidine (PEPCID) 20 mg tablet Take 1 tablet by mouth once daily. - Foam Bandage (OPTIFOAM) 4 X 4 bndg Apply to affected area as needed. - amLODIPine (NORVASC) 5 mg tablet amlodipine 5 mg tablet - melatonin 5 mg tablet Take 5 mg by mouth. - levothyroxine (SYNTHROID) 50 mcg tablet take 1 tablet by mouth once daily ON AN EMPTY STOMACH - methadone 5 mg/5 mL solution Take 5 mL by mouth once daily. Problem List As Of Date 08/19/2023 Noted Resolved Chronic anxiety [F41.9] 06/05/2015 Gastroesophageal reflux disease [K21.9] 06/05/2015 Chronic constipation [K59.09] 06/05/2015 Chronic nausea [R11.0] 06/05/2015 Hepatitis C antibody positive in blood [R76.8] 04/08/2017 Chronic hepatitis C without hepatic coma (HCC) *02/03/2019 Positive urine drug screen [R82.5] 04/30/2019 Debility [R53.81] 04/18/2021 Traumatic injury [T14.90XA] 06/27/2021 Chronic pain syndrome [G89.4] 06/27/2021 Multiple fractures [T07.XXXA] 06/27/2021 Seizures (HCC) [R56.9] 09/18/2021 Encounter Status:Closed by CARLO MIRANDA on 08/19/23 Normal [facility] CT HIP LEFT WO IV CONTRASTon 07-07-2023 CT HIP LEFT WO IV CONTRAST Interpreted By: Adalberto Daley, STUDY: CT of the left hip without intravenous contrast dated 07/07/2023. INDICATION: Signs/Symptoms:pain COMPARISON: None. ACCESSION NUMBER(S): [id number] ORDERING CLINICIAN: CRUZ GOODMAN TECHNIQUE: Axial CT of the left hip was performed without intravenous contrast. Sagittal and coronal 2 dimensional reformats were obtained. FINDINGS: OSSEOUS STRUCTURES AND JOINTS: No acute fracture or dislocation is evident. There are findings compatible with previous resection of the left femoral head and neck with superolateral subluxation of the femur relative to the acetabular fossa. There is reconstruction plate and screw fixation of the left acetabulum with findings compatible with prior fracturing. Overall there appears to be osseous bridging with some persistent visualization of the internal fracture margins of the ischial tuberosity extending up toward the posterior column, best seen in the coronal plane, with some cortication along the internal margins such as seen at image 47 in the axial plane. Of note the long screw that traverses through the superior pubic ramus has its tip marginally protruding out of the bone stock at the pubic body in the region of the rectus abdominus insertion/adductor origin. A few of the screws have their threaded portions exposed to the acetabular fossa such is seen image 27 and 42 of the axial plane. The tip of 1 of the superior most screws marginally extends into the iliacus muscle fossa seen image 20 of the axial plane. The tip of 1 of the screws extends into the pelvis deep to the internal portion of the obturator internus seen image 33 of the axial plane. The tips of the 2 inferior-most screws marginally extend out of the bone stock into the region adjacent to the ischium. Several corticated bodies are seen within the acetabular fossa. There is a small volume of fluid in the acetabular fossa/hip joint. Mild degenerative changes seen of the left sacroiliac joint. MUSCLES AND TENDONS: Mild atrophy is seen in the gluteal musculature and tensor fascia uday likely related to disuse. ASSOCIATED SOFT TISSUES: Scarring is seen in the subcutaneous tissues from prior surgery. IMPRESSION: 1. Surgical fixation for prior acetabular fracturing with hardware findings and some persistent visualization of internal fracture margins discussed above. 2. Girdlestone procedure versus resorption the left femoral head and neck related to avascular necrosis with superolateral subluxation of the left femur relative to the center of the acetabulum. MACRO: none Signed by: Adalberto Daley 07/08/2023 1:10 PM Dictation workstation: [id number] [facility] XR HIP LEFT WITH PELVIS WHEN PERFORMED 2 OR 3 VIEWSon 06-12-2023 XR HIP LEFT WITH PELVIS WHEN PERFORMED 2 OR 3 VIEWS Interpreted By: Xuan Cardenas, STUDY: Single view pelvis. Left hip, two views. INDICATION: Signs/Symptoms:hip pain. COMPARISON: None. ACCESSION NUMBER(S): [id number] ORDERING CLINICIAN: CRUZ GOODMAN FINDINGS: No acute fracture or malalignment. Right hip joint space is well maintained. ORIF left acetabular anterior and posterior column fractures with intact hardware. There is nonvisualized left femoral head and neck which may represent chronic resorption versus Girdlestone procedure change. There is superior subluxation of the left femur with respect to the acetabular fossa. Lower lumbar facet joint arthropathy. IMPRESSION: 1. Please see findings. MACRO: None. Signed by: Xuan Cardenas 06/13/2023 7:09 PM Dictation workstation: [id number] [facility] XR KNEE RIGHT 1-2 VIEWSon XR KNEE RIGHT 1-2 VIEWS Interpreted By: Xuan Cardenas, STUDY: Right tibia, two views Right knee, two views. INDICATION: Signs/Symptoms:injury. COMPARISON: None. ACCESSION NUMBER(S): [id number]; [id number] ORDERING CLINICIAN: CRUZ GOODMAN FINDINGS: Intramedullary nail fixation changes as well as lateral plate and screw fixation changes are noted of tibia. Hardware is intact without perihardware fractures or lucencies. Healed remote distal tibial and distal fibular fracture deformities noted. There is severe varus malalignment of the knee with end-stage medial compartment osteoarthrosis, with joint space loss and subchondral sclerosis. There is superior dislocation of the patella suggesting chronic patellar tendon insufficiency. There is also possible malalignment of the ankle. IMPRESSION: Severe medial compartment osteoarthrosis of the knee with varus angulation. Superior dislocation of the patella suggesting chronic patellar tendon insufficiency. Postsurgical changes of tibia without hardware complication. Remote healed distal tibial and fibular fractures. Possible malalignment of the ankle. Consider dedicated ankle radiographs for further evaluation if clinically warranted. MACRO: None. Signed by: Xuan Cardenas 06/13/2023 7:12 PM Dictation workstation: [id number] [facility] XR TIBIA FIBULA RIGHT 2 VIEW Son 06-12-2023 XR TIBIA FIBULA RIGHT 2 VIEWS Interpreted By: Xuan Cardenas, STUDY: Right tibia, two views Right knee, two views. INDICATION: Signs/Symptoms:injury. COMPARISON: None. ACCESSION NUMBER(S): [id number]; [id number] ORDERING CLINICIAN: CRUZ GOODMAN FINDINGS: Intramedullary nail fixation changes as well as lateral plate and screw fixation changes are noted of tibia. Hardware is intact without perihardware fractures or lucencies. Healed remote distal tibial and distal fibular fracture deformities noted. There is severe varus malalignment of the knee with end-stage medial compartment osteoarthrosis, with joint space loss and subchondral sclerosis. There is superior dislocation of the patella suggesting chronic patellar tendon insufficiency. There is also possible malalignment of the ankle. IMPRESSION: Severe medial compartment osteoarthrosis of the knee with varus angulation. Superior dislocation of the patella suggesting chronic patellar tendon insufficiency. Postsurgical changes of tibia without hardware complication. Remote healed distal tibial and fibular fractures. Possible malalignment of the ankle. Consider dedicated ankle radiographs for further evaluation if clinically warranted. MACRO: None. Signed by: Xuan Cardenas 06/13/2023 7:12 PM Dictation workstation: [id number] [facility] Anaerobic cultureOrdered By: Yulia Munoz on 11-28-2022 Bacteria identified Anaer cx Nom (Unsp spec) No anaerobic bacteria isolated. [facility] Bacteria identified Cx Nom ( Wound)Ordered By: Yulia Munoz on 11-28-2022 Wound Culture Meth. resistant Stap h. aureus [facility] Wound Culture Enterobacter cloacae complex [facility] Gram stain for investigation of transfusion reactionOrdered By: Yulia Munoz on 11-28-2022 Microscopic observation Gram stain Nom (Unsp spec) [facility] 36on 05-23-2022 36 Name of caller: Carey De La Cruz Relation to patient: patient Contact phone number: [phone] Appointment scheduled with: Avelina Tello Appointment date & time: 06/18 at 9am Reason for visit (are you having any symptoms) : Left knee hip replacement Transportation issues/ concerns: no Special accommodations? ( wheel chair, etc) : no Current medications: no Any refills need: no Any chronic conditions the provider should be aware of: knee replacement [facility] 04-25-2022 36 Seen pt had called i nto the answering service after hours, about the abx not being called in yet. Looks like the Answering service spoke with Dr. Lee since Dr. Almonte is not in the office. Called the pt and notified her that the abx (2) were called into [facility]- pt gave verbal understanding. [facility] [id number] 36 Noted. Attempted to call pt, no answer. LVM for pt to return call regarding medication. [facility] 36 I signed off on the meds [facility] 04-23-2022 36 Yes, I'm not doing t he hip for sure. I tried calling her yesterday, will need to call her again today to touch base. Most likely will need amputation with Jeanie prior to any hip surgery we do. Thanks! [facility] 04-22-[address] Almonte she w ould like pt started back on previous antibiotic regimen for 14 days. Attempted to call pt, no answer. LVM for pt to return call. [place] [id number] 36 PAT orders not yet placed, assuming surgery is on hold? [facility] Synovial fluid, cell counton 04-18-2022 Color (Syn fld) TNP [facility] Comment on above: TEST(S) NOT PERFORMED: COLOR APPEARANCE TOTAL NUCLEATED CELL CT NEUTROPHILS, % LYMPHOCYTES, % MONOCYTE/MACROPHAGE, % EOSINOPHILS, % BASOPHILS, % SYNOVIOCYTES, % COMMENT TEST NOT PERFORMED Specimen received clotted. Specimen source Nom (Unsp spec) NOT GIVEN [place] [id number] 36 Name of caller reque sting page:[facility] Phone Number of caller: [phone] Facility requesting page: Microbiology Reason for Page: Knee fluid Provider paged: Practice Name of paged provider: Orthopedics Page Placed to #: N/A Time Page was sent or provider contacted: 6:49 Pm Page Content: [facility] with Microbiology at [facility] is requesting a call back [phone] in regards to knee fluid that she received that was collected wrong. please advise Normal [facility] 36 Name of caller: Amira garibay Contact phone number: [phone] Relationship to Patient: Hematology Lab Provider: Dr Moya Practice: [facility] Chief Complaint/Reason for Call: The lb called and stated 2 of the tests requested could not be done due to clotting and qns. BODY FLUID CELL COUNT and BODY FLUID CELL COUNT WITH DIFFERENTIAL could not be done. Please advise. Best time of day caller can be reached: any Patient advised that office/PCP has 24-48 business hours to return their call: No Normal [facility] 36 PAT: TBD SX: 05/16 @ 9AM DX: M16.12 CPT: 29076 CASE: [id number] Procedure: [place] - [address] with anterior approach Time: 1.5 hours Diagnosis: 1. Primary osteoarthritis of right hip 2. Primary osteoarthritis of left hip Blood: Not anticipated to be given Important Labs to Obtain: Routine PAT protocol Anesthesia: Spinal and quadratus lumborum block DVT Prophylaxis: ASA Return to Office: No Repeat Xrays: No Anticipated Discharge To: Home, 23-HR Stay Implants: DePuy [place] Cup, Actis Stem Equipment: Hip Javascript Programmer lateral positioners, regular table, fluoro Other: TXA, Gisselle Brown Normal [facility] ADDENDUMNOTEon 04-17-2022 ADDENDUMNOTE Addended by: CASS GUZMAN on: 04/19/2022 03:28 PM Modules accepted: Level of Service Normal [facility] Office Visiton 04-17-2022 Follow-up visit [id number] Gemini De La Cruz 1970 F Date Provider Department Center 04/17/2022 [id number], RYAN [facility] ORT GEETA None Family History Problem Relation Age of Onset Kidney disease Mother Family Status - Relation Status Age at Mother Level of Service:12739 MD OFFICE/OUTPATIENT ESTABLISHED MOD MDM 30-39 MIN Reason for Visit and Comments: Follow-up [906553] - FU: Left hip pain Normal [facility] Progress Noteon 04-17-2022 Progress Note [facility] [address] [place] [address] Dept: [phone] Dept 04/17/2022 Chief Complaint Patient presents with Follow-up FU: Left hip pain Subjective: Deidra is a 52 y.o. female who presents for repeat evaluation of the left hip. At the last visit we initiated non-operative treatment consisting of... USG aspiration of the right knee from Dr. Salazar Cultures (aer/anaer) and cell count with differential NSAID's OTC for pain control Consult with Dr. Ware The patient reports the treatment has not provided significant prolonged relief. Review of Systems Past Medical History: Diagnosis Date Arthritis Cancer (CMS/HCC) (HCC) Cervical cancer (CMS/HCC) (HCC) Drug abuse (CMS/HCC) (HCC) Hepatitis C Hepatitis C without hepatic coma Necrotizing fasciitis of forearm (CMS/HCC) (HCC) Traumatic subarachnoid bleed with LOC of 6 hours to 24 hours, initial encounter ([facility] 12/19/2020 Past Surgical History: Procedure Laterality Date ARM DEBRIDEMENT Right 01/06/2019 ARM DEBRIDEMENT Right 01/05/2019 OTHER SURGICAL HISTORY Right 02/08/2021 split thickness skin graft I&D wound vac right knee OTHER SURGICAL HISTORY 02/13/2021 irrigation and debridement RLE wound Social History Socioeconomic History Marital status: Single Spouse name: Not on file Number of children: Not on file Years of education: Not on file Highest education level: Not on file Occupational History Not on file Tobacco Use Smoking status: Every Day Packs/day: 0.50 Types: Cigarettes Smokeless tobacco: Never Substance and Sexual Activity Alcohol use: Never Drug use: Not Currently Types: IV, Opiates Sexual activity: Not on file Other Topics Concern Not on file Social History Narrative Merged History Encounter Social Determinants of Health Financial Resource Strain: Not on file Food Insecurity: Not on file Transportation Needs: Not on file Physical Activity: Not on file Stress: Not on file Social Connections: Not on file Intimate Partner Violence: Not on file Housing Stability: Not on file Family History Problem Relation Name Age of Onset Kidney disease Mother Allergies Allergen Reactions Penicillins Other, Shortness of breath and Unknown Objective: Ht 5' 5 (1.651 m) Wt 180 lb (81.6 kg) BMI 29.95 kg/m? Pt is a WD/WN female in no acute distress. She appears her stated age. Mood and affect are normal. She is A&O x 3. Gait: antalgic. RIGHT HIP: Skin is warm, dry and intact. There are no rashes, lesions, or obvious scars. No tenderness to palpation. Greater trochanter is not tender. ROM shows flexion 120, IR 20, ER 40, without pain. Stinchfield exam: negative. +PF/DF/EHL. SILT distally. DP/PT palpable. Straight leg raise negative for inciting radicular symptoms. LEFT HIP: Skin is warm, dry and intact. There are no rashes, lesions, or obvious scars. No tenderness to palpation. Greater trochanter is not tender. ROM shows flexion 90, IR 10, ER 20. ,with pain. Stinchfield exam: positive. +PF/DF/EHL. SILT distally. DP/PT palpable. Straight leg raise negative for inciting radicular symptoms. Difficult to appreciate leg length discrepancy due to contracture of right knee. Diffuse erythema to rigth knee and RLE, with multiple open wounds with active pus drainage. ROM limited due to contracture and deficient extensor mechanism. Lab Findings: RELEVANT LABS: Lab Results Component Value Date SEDRATE 53 (H) 10/08/2021 Lab Results Component Value Date CRP 40.8 (H) 10/08/2021 Radiology Findings: 04/17/2022 images obtained by outside radiology department independently reviewed by myself today in office. XRAYS: Indication: left hip pain Exam Ordered: Radiographs include an anteroposterior pelvis, an anteroposterior and lateral view of the proximal femur including the hip joint. Details of Examination: Exam shows evidence of avascular necrosis with complete loss of the femoral head. Significant shortening of extremity, worsened in interval films. Posterior acetabular plates and screws noted. No other significant findings are noted. Impression: Left hip avascular necrosis, complete femoral head obliteration, retained acetabular hardware, left hip Assessment 1. Type I or II open fracture of proximal end of right tibia, unspecified fracture morphology, sequela 2. Left hip pain 3. Acute pain of right knee Plan Aspiration in office of right knee in office today, will send for cell count and cultures Discussed surgical options for hip, but at this time my main concern is active infection of the right knee and leg. Will discuss findings of aspirate and leg wounds with colleagues, Dr. Ware gregoria Almonte With a chronic septic knee, presumed infection of entire tibia with retained nail and plate, tenuous soft tissues with previous flap coverage, and a chronic extensor (more content not included)... [facility] Office Visiton 04-03-2022 Follow-up visit [id number] Gemini De La Cruz 1970 F Date Provider Department Center 04/03/2022 [id number] [facility] A[facility] ID None Family History Problem Relation Age of Onset Kidney disease Mother Family Status - Relation Status Age at Mother Level of Service:23332 MD OFFICE/OUTPATIENT ESTABLISHED HIGH [facility] 40-54 MIN Reason for Visit and Comments: Follow-up [907201] - Right lower leg wound infection. Patient needs clearance for surgery with Dr. Guzman. [facility] 03-29-2022 36 Pt called back into the office stated she can come in on 04/03/2022 @ 10 am and is aware that she needs to be on time to this appt. [facility] [address] Emiliana urbina and she stated she is able to see Mya next 04/03/22 @ 10am but, she can't be late or will not be able to be seen. I called Deidra and left a detailed msg notifying her Dr. Almonte can see her on 04/03/22 @ 10am and she can't be late since she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 Phone: Urine sediment yeast count b y microscopy (number/high powered field)on 09-05-2021 Yeast LM.HPF (Urine sed) [#/Area] 1 /[HPF] None Seen [facility] Work Phone: Urine specific gravity measu rementon 09-05-2021 Specific gravity (U) [Rel density] 1.015 1.002-1.030 [facility] Work Phone: Urobilinogen Auto test strip Ql (U)on 09-05-2021 Urobilinogen Ql (U) Normal mg/dl Normal [facility] Work Phone: CT Up Ext w/o Contrast Lefto n 05-28-2021 CT Up Ext w/o Contrast Left Normal [facility] CR Wrist Complete 3 Views [place] 05-15-2021 CR Wrist Complete 3 Views Left Patient Name: DEIDRA DE LA CRUZ Diagnostic Radiology ACCESSION EXAM DATE/TIME PROCEDURE ORDERING PROVIDER [id number] 05/15/2021 11:27 EDT CR Wrist Complete 3 JOSEMD Ford DYLAN R Views Left CPT code 51351 Reason For Exam (CR Wrist Complete 3 Views Left) Left wrist pain Report Left wrist three views HISTORY: Pain COMPARISON: 03/30/2021 Again seen are plates and screws involving the radius, and third mid carpal bone. Ongoing healing of a comminuted fracture of the distal left radius. Previous ulnar styloid fracture. Report Dictated on Final Dictating Physician: MD HATHAWAY MALAY Signed Date and Time: 05/17/2021 9:25 am Signed by: MD HATHAWAY MALAY Transcribed Date and Time: 05/17/2021 9:26 Normal [facility] COVID-19on 04-30-2021 SARS-CoV-2 (COVID-19) RNA CAPRICE+probe Ql (Unsp spec) Not detected Not Detected [facility] Comment on above: Not Detected. Expected result: Not Detected _ Method: Real-time, RT-PCR Negative results do not preclude SARS-CoV-2 infection and should not be used as the sole basis for treatment or other patient management decisions. This assay was developed by [employer] and distributed under an Emergency Use Authorization (EUA) granted by the FDA for the qualitative detection of SARS-CoV-2 nucleic acid. Provider and patient fact sheets can be found at https://www.fda.gov/media/063765/download and https://www.fda.gov/media/975789/download. Test Performed by [id number] [place] [address] [id number] 04-30-2021 SARS-CoV-2 (COVID-19) RNA CAPRICE+probe Ql (Unsp spec) Normal [facility] Comment on above: Performed By: #### C OVID ####[address] [place], [place] C. difficile toxin Molecular on 04-26-2021 C. difficile toxin Molecular NEGATIVE Methodology - Real Time PCR ([employer]) Clinical judgement must be used when interpreting results. Positive results may reflect colonization. Indeterminate results suggest a new specimen be submitted. [address] [facility] Clostridium difficile PCRon 04-26-2021 Clostridium difficile PCR Normal [facility] Comment on above: Performed By: #### C DPCR ####, [id number] performing lab is in the report. GASTROINTESTINAL PCR PANELon 04-26-2021 GASTROINTESTINAL PCR PANEL Normal [facility] Comment on above: Performed By: #### B FGI ####[facility] [place], [place] Gastrointestinal Panel by ALVAREZ Aon 04-26-2021 Gastrointestinal PCR Panel NEGATIVE: No targets were detected by the [employer] Gastrointestinal PCR Panel. _ The [employer] Gastrointestinal PCR Panel can detect the following targets: Campylobacter, Plesiomonas shigelloides, Salmonella, Vibrio species, Vibrio cholerae, Yersinia enterocolitica, Shiga toxin-producing E coli (STEC) including E coli O157, Enterotoxigenic E coli (ETEC), Shigella/Enteroinvasive E coli (EIEC), Cryptosporidium, Cyclospora cayetanensis, Entamoeba histolytica, Giardia lamblia, Adenovirus F 40/41, Astrovirus, Norovirus GI/GII, Rotavirus A, Sapovirus [facility] Test Performed by [facility], [facility] [place] [address] [facility] CULT/STAIN - AEROBIC AND FELY EROBICon 04-24-2021 CULT/STAIN - AEROBIC AND ANAEROBIC Normal [facility] Comment on above: Performed By: #### Rodney HELLER ####[address] [place], [place] Culture, Anaerobic and Aerob icon 04-24-2021 Aerobic Culture Mixed skin evan pre sent. No Staphylococcus aureus isolated. No Pseudomonas aeruginosa isolated. No beta-hemolytic streptococcus isolated. [facility] Anaerobic Culture No growth of anaerob es at 5 days. [facility] Gram Stain Result No polymorphonuclear cells/lpf. No organisms seen. [facility] Test Performed by [facility], [address] [place] [place] [address] [facility] Basic Metabolic Panelon Anion gap [Moles/Vol] 5 mmol/L Normal 3-13 [facility] Comment on above: Performed By: #### B MP3M ####[address] [place], [place] Calcium [Mass/Vol] 9.5 mg/dL Normal 8.4-10.4 [facility] Comment on above: Performed By: #### B MP3M ####[address] [place], [place] CO2 [Moles/Vol] 27 mmol/L Normal 22-30 [facility] Comment on above: Performed By: #### B MP3M ####[address] [place], [place] Glucose [Mass/Vol] 120 mg/dL High 70-100 [facility] Comment on above: Performed By: #### B MP3M ####[address] [place], [place] Urea nitrogen [Mass/Vol] 13 mg/dL Normal 9-20 [facility] Comment on above: Performed By: #### B MP3M ####[address] [place], [place] Creatinine [Mass/Vol] 0.52 mg/dL Normal 0.52-1.25 [facility] Comment on above: Performed By: #### B MP3M ####[address] [place], [place] eGFR OTHER > 90.0 Normal >60 [facility] Comment on above: Result Comment: KDIG O guidelines provide the following GFR categories:Stage GFR(ml/min/1.73 m2) TermsG1 >=90 Normal or highG2 60-89 Mildly decreased*G3a 45-59 Mildly to moderately [id number] 30-44 Moderately to severely decreasedG4 15-29 Severely decreasedG5 <15 Kidney failure*Relative to young adult level.In the absence of evidence of kidney damage, neither GFRcategory G1 nor G2 fulfill the criteria for CKD.The CKD-EPI equation is validated in individuals 18 yearsof age and older. Currently the best equation forestimating glomerular filtration rate (GFR) from serumcreatinine in children is the Bedside Yu equation.It is less accurate in patients with extremes of musclemass, restriction of dietary protein, ingestion of creatine,extra-renal metabolism of creatinine, or treatment withmedications that affect renal tubular creatinine secretion. Performed By: #### B MP3M ####[address] GFR/1.73 sq M.predicted among blacks MDRD (S/P/Bld) [Vol rate/Area] mL/min/{1.73_m2} Normal >60 [facility] Comment on above: Performed By: #### B MP3M ####[address] [place], [place] Potassium [Moles/Vol] 3.6 mmol/L Normal 3.5-5.1 [facility] Comment on above: Performed By: #### B MP3M ####[address] [place], [place] Chloride [Moles/Vol] 105 mmol/L Normal 98-107 [facility] Comment on above: Performed By: #### B MP3M ####[address] [place], [place] Sodium [Moles/Vol] 137 mmol/L Normal 135-145 [facility] Comment on above: Performed By: #### B MP3M ####[address] Basic Metabolic Panel w/ Ref ruslan to MGon 04-19-2021 Anion gap [Moles/Vol] 5 mmol/L 3 - 13 mmol/L [facility] Calcium [Mass/Vol] 9.5 mg/dL 8.4 - 10. 4 mg/dL [facility] Chloride [Moles/Vol] 105 mmol/L 98 - 10 7 mmol/L [facility] CO2 [Moles/Vol] 27 mmol/L 22 - 30 mmol/L [facility] Creatinine [Mass/Vol] 0.52 mg/dL 0.52 - 1.25 mg/dL [facility] EGFR IF NonAfrican [place]an >90.0 >60 mL/min [facility] Comment on above: KDIGO guidelines pro vide the following GFR categories: Stage GFR(ml/min/1.73 m2) Terms G1 >=90 Normal or high G2 60-89 Mildly decreased* G3a 45-59 Mildly to moderately decreased G3b 30-44 Moderately to severely decreased G4 15-29 Severely decreased G5 <15 Kidney failure *Relative to young adult level. In the absence of evidence of kidney damage, neither GFR category G1 nor G2 fulfill the criteria for CKD. The CKD-EPI equation is validated in individuals 18 years of age and older. Currently the best equation for estimating glomerular filtration rate (GFR) from serum creatinine in children is the Bedside Yu equation. It is less accurate in patients with extremes of muscle mass, restriction of dietary protein, ingestion of creatine, extra-renal metabolism of creatinine, or treatment with medications that affect renal tubular creatinine secretion. GFR/1.73 sq M.predicted among blacks MDRD (S/P/Bld) [Vol rate/Area] mL/min/{1.73_m2} >60 mL/min [facility] Glucose [Mass/Vol] 120 mg/dL High 70 - 100 mg/dL [facility] Interpretation and review of laboratory results Abnormal [facility] Potassium [Moles/Vol] 3.6 mmol/L 3.5 - 5.1 mmol/L [facility] Sodium [Moles/Vol] 137 mmol/L 135 - 145 mmol/L [facility] Urea nitrogen (BldV) [Mass/Vol] 13 mg/dL 9 - 20 mg/dL [facility] Test Performed by [facility], [address] [place] [id number] [place] [address] LAB [facility] CBC with Auto DifferentialOr dered By: Israel Sepulveda on 04-19-2021 Absolute Baso # 0.2 10*3/uL 0.0 - 0.2 10*3/uL [facility] Absolute Neut # 4.6 10*3/uL 1.8 - 7.0 10*3/uL [facility] Basophils/100 WBC (Bld) 1.6 % 0.0 - 2.0 % [facility] Eosinophils (Bld) [#/Vol] 0.3 10*3/uL 0.0 - 0.5 10*3/uL [facility] Eosinophils/100 WBC (Bld) 3.3 % 1.0 - 6.0 % [facility] Granulocytes/100 WBC (Bld) 43.4 % 40.0 - 80.0 % [facility] Hematocrit (Bld) [Volume fraction] 31.9 % Low 35.0 - 47.0 % [facility] Hemoglobin.gastrointe stinal spec 1 Ql (Stl) 10.2 g/dL Low 11.7 - 16.0 g/dL [facility] Interpretation and review of laboratory results Abnormal [facility] Lymphocytes (Bld) [#/Vol] 4.9 10*3/uL High 1.0 - 4.3 10*3/uL [facility] Lymphocytes/100 WBC (Bld) 45.4 % High 20.0 - 40.0 % [facility] MCH (RBC) [Entitic mass] 25.9 pg Low 26.0 - 34.0 pg [facility] MCHC (RBC) [Mass/Vol] 31.9 % Low 32.0 - 36.0 % [facility] MCV (RBC) [Entitic vol] 81.2 fL 79.0 - 98.0 fL [facility] Monocytes (Bld) [#/Vol] 0.7 10*3/uL 0.0 - 0.8 10*3/uL [facility] Monocytes/100 WBC (Bld) 6.3 % 2.0 - 10.0 % [facility] Platelet distribution width (Bld) [Ratio] 16.9 % High 11.5 - 14.5 % [facility] Platelet mean volume (Bld) [Entitic vol] 9.9 fL 7.4 - 10.4 fL [facility] Platelets (Bld) [#/Vol] 679 10*3/uL High 140 - 440 10*3/uL [facility] RBC (Bld) [#/Vol] 3.93 10*6/uL 3.80 - 5.2 0 10*6/uL [facility] WBC (Bld) [#/Vol] 10.7 10*3/uL 3.6 - 10.7 10*3/uL [facility] CBC with Auto Differentialon 04-19-2021 Test Performed by [facility], [address] [place] [address] [facility] LAB Hemogram w/ Autodiffon 04-19 Abs Baso Cnt 0.2 10*3/uL Normal 0.0-0.2 [facility] Comment on above: Performed By: #### H EMDF ####[address] [place] [address] Abs Neutrophile Cnt 4.6 10*3/uL Normal 1.8-7.0 [facility] Comment on above: Performed By: #### H EMDF ####[address] [place] [address] Basophils/100 WBC (Bld) 1.6 % Normal 0.0-2.0 [facility] Comment on above: Performed By: #### H EMDF ####[address] [address] Eosinophils (Bld) [#/Vol] 0.3 10*3/uL Normal 0.0-0.5 [facility] Comment on above: Performed By: #### H EMDF ####[address] [place] [address] Eosinophils/100 WBC (Bld) 3.3 % Normal 1.0-6.0 [facility] Comment on above: Performed By: #### H EMDF ####[address] [place] [address] Erythrocyte distribution width (RBC) [Ratio] 16.9 % High 11.5-14.5 [facility] Comment on above: Performed By: #### H EMDF ####[address] [address] Granulocytes/100 WBC (Bld) 43.4 % Normal 40.0-80.0 [facility] Comment on above: Performed By: #### H EMDF ####[address] Hematocrit (Bld) [Volume fraction] 31.9 % Low 35.0-47.0 [facility] Comment on above: Performed By: #### H EMDF ####[address] Hemoglobin (Bld) [Mass/Vol] 10.2 g/dL Low 11.7-16.0 [facility] Comment on above: Performed By: #### H EMDF ####[address] Lymphocytes (Bld) [#/Vol] 4.9 10*3/uL High 1.0-4.3 [facility] Comment on above: Performed By: #### H EMDF ####[address] Lymphocytes/100 WBC (Bld) 45.4 % High 20.0-40.0 [facility] Comment on above: Performed By: #### H EMDF ####[address] MCH (RBC) [Entitic mass] 25.9 pg Low 26.0-34.0 [facility] Comment on above: Performed By: #### H EMDF ####[address] MCHC 31.9 % Low 32.0-36.0 [facility] Comment on above: Performed By: #### H EMDF ####[address] MCV (RBC) [Entitic vol] 81.2 fL Normal 79.0-98.0 [facility] Comment on above: Performed By: #### H EMDF ####[address] Monocytes (Bld) [#/Vol] 0.7 10*3/uL Normal 0.0-0.8 [facility] Comment on above: Performed By: #### H EMDF ####[address] [place], [place] Monocytes/100 WBC (Bld) 6.3 % Normal 2.0-10.0 [facility] Comment on above: Performed By: #### H EMDF ####[address] [place], [place] Platelet mean volume (Bld) [Entitic vol] 9.9 fL Normal 7.4-10.4 [facility] Comment on above: Performed By: #### H EMDF ####[address] [place], [place] Platelets (Bld) [#/Vol] 679 10*3/uL High 140-440 [facility] Comment on above: Performed By: #### H EMDF ####[address] [place], [place] RBC (Bld) [#/Vol] 3.93 10*6/uL Normal 3.80-5.20 [facility] Comment on above: Performed By: #### H EMDF ####[address] [place], [place] WBC (Bld) [#/Vol] 10.7 10*3/uL Normal 3.6-10.7 [facility] Comment on above: Performed By: #### H EMDF ####[address] [place], [place] CR Chest Portableon 04-19-19 22 CR Chest Portable Normal [facility] Complete Urinalysison 2021 Appearance (U) Turbid Abnormal Clear [facility] Comment on above: Result Comment: . Performed By: #### C UA2 ####[address] [place], [place] Bilirubin,Urine Negative Normal Negative [facility] Comment on above: Result Comment: . Performed By: #### C UA2 ####[address] [place], [place] Color (U) Light-Yellow Normal Lt. Yellow [facility] Comment on above: Result Comment: . Performed By: #### C UA2 ####[address] . [place], [place] Glucose Ql (U) Normal Normal Normal (<70) [facility] Comment on above: Result Comment: . Performed By: #### C UA2 ####[address] [place], [place] Ketone,Urine Negative Normal Negative [facility] Comment on above: Result Comment: . Performed By: #### C UA2 ####[address] Leukocytes,Urine Negative Normal Negative [facility] Comment on above: Result Comment: . Performed By: #### C UA2 ####[address] Nitrites,Urine Negative Normal Negative [facility] Comment on above: Result Comment: . Performed By: #### C UA2 ####[address] Occult Blood,Urine Negative Normal Negative [facility] Comment on above: Result Comment: . Performed By: #### C UA2 ####[address] pH,Urine 7.5 Normal 5.0-8.0 [facility] Comment on above: Result Comment: . Performed By: #### C UA2 ####[address] [place], [place] Specific [place],Urine 1.013 Normal 1.005 - 1.030 [facility] Comment on above: Result Comment: . Performed By: #### C UA2 ####[address] Total Protein,Urine Negative Normal Negative [facility] Comment on above: Result Comment: . Performed By: #### C UA2 ####[address] Urobilinogen,Urine Normal Normal Normal (0-1) [facility] Comment on above: Result Comment: . Performed By: #### C UA2 ####[facility] [place] [address] Urinalysison 04-18-2021 Appearance (U) Turbid Abnormal Clear NA [facility] Comment on above: . Bilirubin Urine Negative Negative mg/dL [facility] Comment on above: . Color (U) Light-Yellow Lt. Yellow NA [facility] Comment on above: . Glucose, Ur Normal Normal (<70) mg/dL [facility] Comment on above: . Interpretation and review of laboratory results Abnormal [facility] Ketones Ql (U) Negative Negative mg/dL [facility] Comment on above: . LEUKOCYTES, UA Negative Negative Richard/uL [facility] Comment on above: . Nitrite, Urine Negative Negative NA [facility] Comment on above: . Occult Blood,Urine Negative Negative mg/dL [facility] Comment on above: . pH (U) 7.5 [pH] [facility] Comment on above: . Specific [place], Urine 1.013 [facility] Comment on above: . Total Protein, Urine Negative Negativ e mg/dL [facility] Comment on above: . Urobilinogen, Urine Normal Normal ( 0-1) mg/dL [facility] Comment on above: . Test Performed by [facility], [address] [place], [place] [id number] [place] [address] LAB [facility] XR CHEST PORTABLEon 04-19-19 Patient Name: DEIDRA GOLDSTIEN Diagnostic Radiology ACCESSION EXAM DATE/TIME PROCEDURE ORDERING PROVIDER [id number] 04/18/2021 00:37 EST CR Chest Portable [id number] [facility] CPT code 76106 Reason For Exam (CR Chest Portable) leukocytosis Report PORTABLE CHEST CLINICAL INDICATION: Leukocytosis. COMPARISON: 01/31/2021. TECHNIQUE: A single frontal view of thorax was obtained and reviewed. IMPRESSION: 1. Lines/ tubes/ devices: None. 2. Lungs and Pleura: No infiltrate or mass. No pneumothorax or pleural effusion. 3. Heart and mediastinum: Normal cardiomediastinal margin. 4. Bones: Normal osseous structures. Report Dictated on --- Final --- Dictated: 04/18/2021 0:50 am Dictating Physician: CLAU MARES DO, I Signed Date and Time: 04/18/2021 0:51 am Signed by: CLAU MARES DO, I Transcribed Date and Time: 04/18/2021 0:50 [facility] Clau Treviño DO - 04/18/2021 [id number] ACCESSION EXAM DATE/TIME PROCEDURE ORDERING PROVIDER [id number] 04/18/2021 00:37 EST CR Chest Portable [id number] -KIBE BELL CPT code 34974 Reason For Exam (CR Chest Portable) leukocytosis Report PORTABLE CHEST CLINICAL INDICATION: Leukocytosis. COMPARISON: 01/31/2021. TECHNIQUE: A single frontal view of thorax was obtained and reviewed. IMPRESSION: 1. Lines/ tubes/ devices: None. 2. Lungs and Pleura: No infiltrate or mass. No pneumothorax or pleural effusion. 3. Heart and mediastinum: Normal cardiomediastinal margin. 4. Bones: Normal osseous structures. Report Dictated on --- Final --- Dictated: 04/18/2021 0:50 am Dictating Physician: CLAU MARES DO, I Signed Date and Time: 04/18/2021 0:51 am Signed by: CLAU MARES DO, I Transcribed Date and Time: 04/18/2021 0:50 [facility] Work Phone: Radiology Study observation (narrative) [facility] Work Phone: XR CHEST PORTABLEOrdered By: Clau Mares on 04-18-2021 [facility] Work Phone: Basic Metabolic Panelon 03-0 Calcium [Mass/Vol] 10.3 mg/dL Normal 8.4-10.4 [facility] Comment on above: Performed By: #### B MP3, HEMDF, MG3, LFT3 ####[facility] [employer] [id number] [place] [address] Glucose [Mass/Vol] 125 mg/dL High 70-100 [facility] Comment on above: Performed By: #### B MP3, HEMDF, MG3, LFT3 ####[facility] [employer] [id number] [place], [place] Urea nitrogen [Mass/Vol] 11 mg/dL Normal 9-20 [facility] Comment on above: Performed By: #### B MP3, HEMDF, MG3, LFT3 ####[facility] [employer] [id number] [place], [place] Anion gap [Moles/Vol] 6 mmol/L Normal 3-13 [facility] Comment on above: Performed By: #### B MP3, HEMDF, MG3, LFT3 ####[address] [place], [place] CO2 [Moles/Vol] 27 mmol/L Normal 22-30 [facility] Comment on above: Performed By: #### B MP3, HEMDF, MG3, LFT3 ####[facility] [employer] [id number] [place], [place] Creatinine [Mass/Vol] 0.45 mg/dL Low 0.52-1.25 [facility] Comment on above: Performed By: #### B MP3, HEMDF, MG3, LFT3 ####[facility] [employer] [id number] [place], [place] eGFR OTHER > 90.0 Normal >60 [facility] Comment on above: Result Comment: KDIG O guidelines provide the following GFR categories:Stage GFR(ml/min/1.73 m2) TermsG1 >=90 Normal or highG2 60-89 Mildly decreased*G3a 45-59 Mildly to moderately [id number] 30-44 Moderately to severely decreasedG4 15-29 Severely decreasedG5 <15 Kidney failure*Relative to young adult level.In the absence of evidence of kidney damage, neither GFRcategory G1 nor G2 fulfill the criteria for CKD.The CKD-EPI equation is validated in individuals 18 yearsof age and older. Currently the best equation forestimating glomerular filtration rate (GFR) from serumcreatinine in children is the Bedside Yu equation.It is less accurate in patients with extremes of musclemass, restriction of dietary protein, ingestion of creatine,extra-renal metabolism of creatinine, or treatment withmedications that affect renal tubular creatinine secretion. Performed By: #### B MP3, HEMDF, MG3, LFT3 ####[facility] [employer] [id number] [place] [address] GFR/1.73 sq M.predicted among blacks MDRD (S/P/Bld) [Vol rate/Area] mL/min/{1.73_m2} Normal >60 [facility] Comment on above: Performed By: #### B MP3, HEMDF, MG3, LFT3 ####[facility] [employer] [id number] [place] [address] Chloride [Moles/Vol] 103 mmol/L Normal 98-107 [facility] Comment on above: Performed By: #### B MP3, HEMDF, MG3, LFT3 ####[facility] [employer] [address] [place], [place] Potassium [Moles/Vol] 4.9 mmol/L Normal 3.5-5.1 [facility] Comment on above: Result Comment: Slig htly hemolysed, interpret with caution. Performed By: #### B MP3, HEMDF, MG3, LFT3 ####[facility] [employer] [id number] [place], [place] Sodium [Moles/Vol] 136 mmol/L Normal 135-145 [facility] Comment on above: Performed By: #### B MP3, HEMDF, MG3, LFT3 ####[facility] [employer] [id number] [place], [place] Anion gap [Moles/Vol] 6 mmol/L 3 - 13 mmol/L [facility] Calcium [Mass/Vol] 10.3 mg/dL 8.4 - 10. 4 mg/dL [facility] Chloride [Moles/Vol] 103 mmol/L 98 - 10 7 mmol/L [facility] CO2 [Moles/Vol] 27 mmol/L 22 - 30 mmol/L [facility] Creatinine [Mass/Vol] 0.45 mg/dL Low 0.52 - 1.25 mg/dL [facility] EGFR IF NonAfrican Bel[place]an >90.0 >60 mL/min [facility] Comment on above: KDIGO guidelines pro vide the following GFR categories: Stage GFR(ml/min/1.73 m2) Terms G1 >=90 Normal or high G2 60-89 Mildly decreased* G3a 45-59 Mildly to moderately decreased G3b 30-44 Moderately to severely decreased G4 15-29 Severely decreased G5 <15 Kidney failure *Relative to young adult level. In the absence of evidence of kidney damage, neither GFR category G1 nor G2 fulfill the criteria for CKD. The CKD-EPI equation is validated in individuals 18 years of age and older. Currently the best equation for estimating glomerular filtration rate (GFR) from serum creatinine in children is the Bedside Yu equation. It is less accurate in patients with extremes of muscle mass, restriction of dietary protein, ingestion of creatine, extra-renal metabolism of creatinine, or treatment with medications that affect renal tubular creatinine secretion. GFR/1.73 sq M.predicted among blacks MDRD (S/P/Bld) [Vol rate/Area] mL/min/{1.73_m2} >60 mL/min [facility] Glucose [Mass/Vol] 125 mg/dL High 70 - 100 mg/dL [facility] Potassium [Moles/Vol] 4.9 mmol/L 3.5 - 5.1 mmol/L [facility] Comment on above: Slightly hemolysed, interpret with caution. Sodium [Moles/Vol] 136 mmol/L 135 - 145 mmol/L [facility] Urea nitrogen (BldV) [Mass/Vol] 11 mg/dL 9 - 20 mg/dL [facility] CBC with Auto Differentialon 04-17-2021 Absolute Baso # 0.1 10*3/uL 0.0 - 0.2 10*3/uL [facility] Absolute Neut # 8.3 10*3/uL High 1.8 - 7.0 10*3/uL [facility] Basophils/100 WBC (Bld) 1.0 % 0.0 - 2.0 % [facility] Eosinophils (Bld) [#/Vol] 0.2 10*3/uL 0.0 - 0.5 10*3/uL [facility] Eosinophils/100 WBC (Bld) 1.7 % 1.0 - 6.0 % [facility] Granulocytes/100 WBC (Bld) 59.5 % 40.0 - 80.0 % [facility] Hematocrit (Bld) [Volume fraction] 40.2 % 35.0 - 47.0 % [facility] Hemoglobin.gastrointe stinal spec 1 Ql (Stl) 12.7 g/dL 11.7 - 16.0 g/dL [facility] Interpretation and review of laboratory results Abnormal [facility] Lymphocytes (Bld) [#/Vol] 4.5 10*3/uL High 1.0 - 4.3 10*3/uL [facility] Lymphocytes/100 WBC (Bld) 32.3 % 20.0 - 40.0 % [facility] MCH (RBC) [Entitic mass] 25.6 pg Low 26.0 - 34.0 pg [facility] MCHC (RBC) [Mass/Vol] 31.6 % Low 32.0 - 36.0 % [facility] MCV (RBC) [Entitic vol] 81.3 fL 79.0 - 98.0 fL [facility] Monocytes (Bld) [#/Vol] 0.8 10*3/uL 0.0 - 0.8 10*3/uL [facility] Monocytes/100 WBC (Bld) 5.5 % 2.0 - 10.0 % [facility] Platelet distribution width (Bld) [Ratio] 16.8 % High 11.5 - 14.5 % [facility] Platelet mean volume (Bld) [Entitic vol] 9.6 fL 7.4 - 10.4 fL [facility] Platelets (Bld) [#/Vol] 647 10*3/uL High 140 - 440 10*3/uL [facility] RBC (Bld) [#/Vol] 4.95 10*6/uL 3.80 - 5.2 0 10*6/uL [facility] WBC (Bld) [#/Vol] 13.9 10*3/uL High 3.6 - 10.7 10*3/uL [facility] Test Performed by [facility], [address] [place] [address] [facility] ED Provider Noteon 2 ED Provider Note Normal [facility] Hemogram w/ Autodiffon 04-17 Abs Baso Cnt 0.1 10*3/uL Normal 0.0-0.2 [facility] Comment on above: Performed By: #### B MP3, HEMDF, MG3, LFT3 ####[facility] [place] [address] Abs Neutrophile Cnt 8.3 10*3/uL High 1.8-7.0 [facility] Comment on above: Performed By: #### B MP3, HEMDF, MG3, LFT3 ####[address] Basophils/100 WBC (Bld) 1.0 % Normal 0.0-2.0 [facility] Comment on above: Performed By: #### B MP3, HEMDF, MG3, LFT3 ####[address] Eosinophils (Bld) [#/Vol] 0.2 10*3/uL Normal 0.0-0.5 [facility] Comment on above: Performed By: #### B MP3, HEMDF, MG3, LFT3 ####[address] Eosinophils/100 WBC (Bld) 1.7 % Normal 1.0-6.0 [facility] Comment on above: Performed By: #### B MP3, HEMDF, MG3, LFT3 ####[address] Erythrocyte distribution width (RBC) [Ratio] 16.8 % High 11.5-14.5 [facility] Comment on above: Performed By: #### B MP3, HEMDF, MG3, LFT3 ####[address] Granulocytes/100 WBC (Bld) 59.5 % Normal 40.0-80.0 [facility] Comment on above: Performed By: #### B MP3, HEMDF, MG3, LFT3 ####[address] Hematocrit (Bld) [Volume fraction] 40.2 % Normal 35.0-47.0 [facility] Comment on above: Performed By: #### B MP3, HEMDF, MG3, LFT3 ####[address] Hemoglobin (Bld) [Mass/Vol] 12.7 g/dL Normal 11.7-16.0 [facility] Comment on above: Performed By: #### B MP3, HEMDF, MG3, LFT3 ####[address] Lymphocytes (Bld) [#/Vol] 4.5 10*3/uL High 1.0-4.3 [facility] Comment on above: Performed By: #### B MP3, HEMDF, MG3, LFT3 ####[address] Lymphocytes/100 WBC (Bld) 32.3 % Normal 20.0-40.0 [facility] Comment on above: Performed By: #### B MP3, HEMDF, MG3, LFT3 ####[address] MCH (RBC) [Entitic mass] 25.6 pg Low 26.0-34.0 [facility] Comment on above: Performed By: #### B MP3, HEMDF, MG3, LFT3 ####[address] MCHC 31.6 % Low 32.0-36.0 [facility] Comment on above: Performed By: #### B MP3, HEMDF, MG3, LFT3 ####[address] MCV (RBC) [Entitic vol] 81.3 fL Normal 79.0-98.0 [facility] Comment on above: Performed By: #### B MP3, HEMDF, MG3, LFT3 ####[address] Monocytes (Bld) [#/Vol] 0.8 10*3/uL Normal 0.0-0.8 [facility] Comment on above: Performed By: #### B MP3, HEMDF, MG3, LFT3 ####[address] Monocytes/100 WBC (Bld) 5.5 % Normal 2.0-10.0 [facility] Comment on above: Performed By: #### B MP3, HEMDF, MG3, LFT3 ####[address] [place], [place] Platelet mean volume (Bld) [Entitic vol] 9.6 fL Normal 7.4-10.4 [facility] Comment on above: Performed By: #### B MP3, HEMDF, MG3, LFT3 ####[address] [place], [place] Platelets (Bld) [#/Vol] 647 10*3/uL High 140-440 [facility] Comment on above: Performed By: #### B MP3, HEMDF, MG3, LFT3 ####[address] [place], [place] RBC (Bld) [#/Vol] 4.95 10*6/uL Normal 3.80-5.20 [facility] Comment on above: Performed By: #### B MP3, HEMDF, MG3, LFT3 ####[address] [place], [place] WBC (Bld) [#/Vol] 13.9 10*3/uL High 3.6-10.7 [facility] Comment on above: Performed By: #### B MP3, HEMDF, MG3, LFT3 ####[address] [place], [place] Hepatic Functionon 2 ALP [Catalytic activity/Vol] 167 U/L High 38-126 [facility] Comment on above: Result Comment: Slig htly hemolysed, interpret with caution. Performed By: #### B MP3, HEMDF, MG3, LFT3 ####[address] [place], [place] ALT [Catalytic activity/Vol] 22 U/L Normal 0-34 [facility] Comment on above: Result Comment: The ALT test is performed by an updated assay method.Please note that the reference intervals have beenchanged and are now sex specific. Performed By: #### B MP3, HEMDF, MG3, LFT3 ####[address] [place], [place] AST [Catalytic activity/Vol] 36 U/L Normal 15-46 [facility] Comment on above: Result Comment: Slig htly hemolysed, interpret with caution. Performed By: #### B MP3, HEMDF, MG3, LFT3 ####[address] [place], [place] Bilirubin [Mass/Vol] 0.7 mg/dL Normal 0.2-1.3 [facility] Comment on above: Performed By: #### B MP3, HEMDF, MG3, LFT3 ####[address] Protein [Mass/Vol] 8.3 g/dL High 6.3-8.2 [facility] Comment on above: Result Comment: Slig htly hemolysed, interpret with caution. Performed By: #### B MP3, HEMDF, MG3, LFT3 ####[address] [place], [place] Bilirubin.indirect [Mass/Vol] 0.0 mg/dL Normal 0.0-0.3 [facility] Comment on above: Performed By: #### B MP3, HEMDF, MG3, LFT3 ####[address] Albumin [Mass/Vol] 4.4 g/dL Normal 3.5-5.0 [facility] Comment on above: Result Comment: Slig htly hemolysed, interpret with caution. Performed By: #### B MP3, HEMDF, MG3, LFT3 ####[address] [place], [place] Hepatic Function Panelon Albumin [Mass/Vol] 4.4 g/dL 3.5 - 5.0 g/dL [facility] Comment on above: Slightly hemolysed, interpret with caution. ALP (Bld) [Catalytic activity/Vol] 167 U/L High 38 - 126 U/L [facility] Comment on above: Slightly hemolysed, interpret with caution. ALT [Catalytic activity/Vol] 22 U/L 0 - 34 U/L [facility] Comment on above: The ALT test is perf ormed by an updated assay method. Please note that the reference intervals have been changed and are now sex specific. AST [Catalytic activity/Vol] 36 U/L 15 - 46 U/L [facility] Comment on above: Slightly hemolysed, interpret with caution. Bilirubin [Mass/Vol] 0.7 mg/dL 0.2 - 1 .3 mg/dL [facility] Bilirubin.indirect [Mass/Vol] 0.0 mg/dL 0.0 - 0.3 mg/dL [facility] Free PSA/Total PSA [Mass fraction] 8.3 g/dL High 6.3 - 8.2 g/dL [facility] Comment on above: Slightly hemolysed, interpret with caution. Magnesiumon 04-17-2021 Magnesium [Mass/Vol] 2.1 mg/dL Normal 1.6-2.3 [facility] Comment on above: Result Comment: Slig htly hemolysed, interpret with caution. Performed By: #### B MP3, HEMDF, MG3, LFT3 ####[address] [address] Magnesium [Mass/Vol] 2.1 mg/dL 1.6 - 2 .3 mg/dL [facility] Comment on above: Slightly hemolysed, interpret with caution. No Panel Informationon 04-17 Interpretation and review of laboratory results Abnormal [facility] Test Performed by [facility], [address], [place] [id number] [place] [address] LAB [facility] Ammoniaon 04-12-2021 Ammonia (P) [Mass/Vol] ug/dL Normal 9-30 [facility] Comment on above: Performed By: #### N H33 ####[address] [address] VL Venous Duplex US Lower Ex t Bilateralon 04-12-2021 VL Venous Duplex US Lower Ext Bilateral Normal [facility] [id number] 04-11-2021 SARS-CoV-2 (COVID-19) RNA CAPRICE+probe Ql (Unsp spec) Normal [facility] Comment on above: Performed By: #### C OVID ####[place] [id number] [address] Comp Metabolic Panelon 04-10 ALP [Catalytic activity/Vol] 217 U/L High 38-126 [facility] Comment on above: Performed By: #### M G3, CMP3, PHOS3 ####[place] [id number] [place] [address] ALT [Catalytic activity/Vol] 24 U/L Normal 0-34 [facility] Comment on above: Result Comment: The ALT test is performed by an updated assay method.Please note that the reference intervals have beenchanged and are now sex specific. Performed By: #### M Wu, CMP3, PHOS3 ####[place] [id number] [address] AST [Catalytic activity/Vol] 41 U/L Normal 15-46 [facility] Comment on above: Performed By: #### M G3, CMP3, PHOS3 ####[place] [address] Calcium [Mass/Vol] 10.5 mg/dL High 8.4-10.4 [facility] Comment on above: Performed By: #### M G3, CMP3, PHOS3 ####[place] [address] Glucose [Mass/Vol] 107 mg/dL High 70-100 [facility] Comment on above: Performed By: #### M G3, CMP3, PHOS3 ####[place] [address] [place] Protein [Mass/Vol] 7.9 g/dL Normal 6.3-8.2 [facility] Comment on above: Performed By: #### M G3, CMP3, PHOS3 ####[place] [address] Urea nitrogen [Mass/Vol] 25 mg/dL High 9-20 [facility] Comment on above: Performed By: #### M G3, CMP3, PHOS3 ####[facility] [address] [place] [address] Anion gap [Moles/Vol] 8 mmol/L Normal 3-13 [facility] Comment on above: Performed By: #### M G3, CMP3, PHOS3 ####[place] [address] [place] [address] Bilirubin [Mass/Vol] 0.4 mg/dL Normal 0.2-1.3 [facility] Comment on above: Performed By: #### M G3, CMP3, PHOS3 ####[place] [address] [place] [address] CO2 [Moles/Vol] 31 mmol/L High 22-30 [facility] Comment on above: Performed By: #### M G3, CMP3, PHOS3 ####[place] [place] [address] Creatinine [Mass/Vol] 0.86 mg/dL Normal 0.52-1.25 [facility] Comment on above: Performed By: #### Ward G3, CMP3, PHOS3 ####[place] [address] [place] [address] GFR/1.73 sq M.predicted among blacks MDRD (S/P/Bld) [Vol rate/Area] mL/min/{1.73_m2} Normal >60 [facility] Comment on above: Performed By: #### M G3, CMP3, PHOS3 ####[place] [address] [place] [address] GFR/1.73 sq M.predicted among non-blacks MDRD (S/P/Bld) [Vol rate/Area] 79.3 mL/min/{1.73_m2} Normal >60 [facility] Comment on above: Result Comment: KDIG O guidelines provide the following GFR categories:Stage GFR(ml/min/1.73 m2) TermsG1 >=90 Normal or highG2 60-89 Mildly decreased*G3a 45-59 Mildly to moderately [id number] 30-44 Moderately to severely decreasedG4 15-29 Severely decreasedG5 <15 Kidney failure*Relative to young adult level.In the absence of evidence of kidney damage, neither GFRcategory G1 nor G2 fulfill the criteria for CKD.The CKD-EPI equation is validated in individuals 18 yearsof age and older. Currently the best equation forestimating glomerular filtration rate (GFR) from serumcreatinine in children is the Bedside Yu equation.It is less accurate in patients with extremes of musclemass, restriction of dietary protein, ingestion of creatine,extra-renal metabolism of creatinine, or treatment withmedications that affect renal tubular creatinine secretion. Performed By: #### M Wu CMP3, PHOS3 ####[place] [address] [place] [address] Potassium [Moles/Vol] 4.3 mmol/L Normal 3.5-5.1 [facility] Comment on above: Performed By: #### Ward Washburn CMP3, PHOS3 ####[place] [address] [place] [address] Sodium [Moles/Vol] 139 mmol/L Normal 135-145 [facility] Comment on above: Performed By: #### Ward Washburn CMP3, PHOS3 ####[place] [address] [place] [address] Albumin [Mass/Vol] 4.2 g/dL Normal 3.5-5.0 [facility] Comment on above: Performed By: #### Ward Washburn CMP3, PHOS3 ####[place] [address] [place] [address] Chloride [Moles/Vol] 99 mmol/L Normal 98-107 [facility] Comment on above: Performed By: #### M Wu CMP3, PHOS3 ####[place] [address] [place] [address] Hemogramon 04-10-2021 Erythrocyte distribution width (RBC) [Ratio] 16.2 % High 11.5-14.5 [facility] Comment on above: Performed By: #### H EMOG ####[place] [address] [place] [address] Hematocrit (Bld) [Volume fraction] 37.9 % Normal 35.0-47.0 [facility] Comment on above: Performed By: #### H EMOG ####[place] [address] [place], [place] Hemoglobin (Bld) [Mass/Vol] 11.8 g/dL Normal 11.7-16.0 [facility] Comment on above: Performed By: #### H EMOG ####[place] [address] [place], [place] MCH (RBC) [Entitic mass] 25.9 pg Low 26.0-34.0 [facility] Comment on above: Performed By: #### H EMOG ####[address] MCHC 31.1 % Low 32.0-36.0 [facility] Comment on above: Performed By: #### H EMOG ####[address] MCV (RBC) [Entitic vol] 83.3 fL Normal 79.0-98.0 [facility] Comment on above: Performed By: #### H EMOG ####[address] Platelet mean volume (Bld) [Entitic vol] 9.2 fL Normal 7.4-10.4 [facility] Comment on above: Performed By: #### H EMOG ####[address] Platelets (Bld) [#/Vol] 705 10*3/uL High 140-440 [facility] Comment on above: Performed By: #### H EMOG ####[address] RBC (Bld) [#/Vol] 4.55 10*6/uL Normal 3.80-5.20 [facility] Comment on above: Performed By: #### H EMOG ####[address] WBC (Bld) [#/Vol] 11.3 10*3/uL High 3.6-10.7 [facility] Comment on above: Performed By: #### H EMOG ####[facility] [place], [place] Magnesiumon 04-10-2021 Magnesium [Mass/Vol] 2.1 mg/dL Normal 1.6-2.3 [facility] Comment on above: Performed By: #### M G3, CMP3, PHOS3 ####[facility] [place], [place] Phosphoruson 04-10-2021 Phosphate [Mass/Vol] 6.0 mg/dL High 2.5-4.5 [facility] Comment on above: Performed By: #### M G3, CMP3, PHOS3 ####[place] [address] [place], [place] VL Venous Duplex US Lower Ex t Bilateralon 04-09-2021 VL Venous Duplex US Lower Ext Bilateral Normal [facility] VL Venous Duplex US Lower Ex t Bilateralon 04-05-2021 VL Venous Duplex US Lower Ext Bilateral Normal [facility] VL Venous Duplex US Lower Ex t Bilateralon 04-02-2021 VL Venous Duplex US Lower Ext Bilateral Normal [facility] CT Up Ext w/o Contrast Lefto n 03-31-2021 CT Up Ext w/o Contrast Left Normal [facility] Clostridium difficile PCRon 03-31-2021 Clostridium difficile PCR Normal [facility] Comment on above: Performed By: #### C DPCR ####, [id number] performing lab is in the report. CR Forearm 2 Views Lefton CR Forearm 2 Views Left Normal [facility] CR Hand Complete 3+ Views Le fton 03-30-2021 CR Hand Complete 3+ Views Left Normal [facility] CR Knee 3 Views Righton 03-20 CR Knee 3 Views Right Normal [facility] CR Pelvis 1 or 2 Viewson CR Pelvis 1 or 2 Views Normal [facility] CR Tibia/Fibula 2 Views Righ ton 03-30-2021 CR Tibia/Fibula 2 Views Right Normal [facility] Basic Metabolic Panelon 03-20 Calcium [Mass/Vol] 10.2 mg/dL Normal 8.4-10.4 [facility] Comment on above: Performed By: #### H EMDF, BMP3 ####[facility] [employer] [id number] [place], [place] Glucose [Mass/Vol] 104 mg/dL High 70-100 [facility] Comment on above: Performed By: #### H EMDF, BMP3 ####[facility] [employer] [id number] [place], [place] Urea nitrogen [Mass/Vol] 14 mg/dL Normal 9-20 [facility] Comment on above: Performed By: #### H EMDF, BMP3 ####[facility] [employer] [id number] [place], [place] Anion gap [Moles/Vol] 7 mmol/L Normal 3-13 [facility] Comment on above: Performed By: #### H EMDF, BMP3 ####[facility] [employer] [id number] [place], [place] CO2 [Moles/Vol] 30 mmol/L Normal 22-30 [facility] Comment on above: Performed By: #### H EMDF, BMP3 ####[facility] [employer] [id number] [place], [place] Creatinine [Mass/Vol] 0.69 mg/dL Normal 0.52-1.25 [facility] Comment on above: Performed By: #### H EMDF, BMP3 ####[facility] [employer] [id number] [place], [place] eGFR OTHER > 90.0 Normal >60 [facility] Comment on above: Result Comment: KDIG O guidelines provide the following GFR categories:Stage GFR(ml/min/1.73 m2) TermsG1 >=90 Normal or highG2 60-89 Mildly decreased*G3a 45-59 Mildly to moderately vphlamqxnD2e 30-44 Moderately to severely decreasedG4 15-29 Severely decreasedG5 <15 Kidney failure*Relative to young adult level.In the absence of evidence of kidney damage, neither GFRcategory G1 nor G2 fulfill the criteria for CKD.The CKD-EPI equation is validated in individuals 18 yearsof age and older. Currently the best equation forestimating glomerular filtration rate (GFR) from serumcreatinine in children is the Bedside Yu equation.It is less accurate in patients with extremes of musclemass, restriction of dietary protein, ingestion of creatine,extra-renal metabolism of creatinine, or treatment withmedications that affect renal tubular creatinine secretion. Performed By: #### H CURLY BMP3 ####[place] [address] [place], [place] GFR/1.73 sq M.predicted among blacks MDRD (S/P/Bld) [Vol rate/Area] mL/min/{1.73_m2} Normal >60 [facility] Comment on above: Performed By: #### H CURLY BMP3 ####[address] Potassium [Moles/Vol] 4.0 mmol/L Normal 3.5-5.1 [facility] Comment on above: Performed By: #### H CURLY BMP3 ####[address] Sodium [Moles/Vol] 141 mmol/L Normal 135-145 [facility] Comment on above: Performed By: #### H CURLY BMP3 ####[address] Chloride [Moles/Vol] 104 mmol/L Normal 98-107 [facility] Comment on above: Performed By: #### H CURLY BMP3 ####[address] CR Knee 3 Views Lefton 03-29 CR Knee 3 Views Left Normal [facility] ED Provider Noteon 2 ED Provider Note Normal [facility] Hemogram w/ Autodiffon 03-29 Abs Baso Cnt 0.3 10*3/uL High 0.0-0.2 [facility] Comment on above: Performed By: #### H CURLY, BMP3 ####[address] Abs Neutrophile Cnt 6.7 10*3/uL Normal 1.8-7.0 [facility] Comment on above: Performed By: #### H EMDF, BMP3 ####[place] [address] [place], [place] Basophils/100 WBC (Bld) 2.3 % High 0.0-2.0 [facility] Comment on above: Performed By: #### H EMDF, BMP3 ####[place] [address] [place], [place] Eosinophils (Bld) [#/Vol] 0.7 10*3/uL High 0.0-0.5 [facility] Comment on above: Performed By: #### H EMDF, BMP3 ####[address] Eosinophils/100 WBC (Bld) 4.9 % Normal 1.0-6.0 [facility] Comment on above: Performed By: #### H EMDF, BMP3 ####[address] Erythrocyte distribution width (RBC) [Ratio] 16.9 % High 11.5-14.5 [facility] Comment on above: Performed By: #### H EMDF, BMP3 ####[address] Granulocytes/100 WBC (Bld) 46.4 % Normal 40.0-80.0 [facility] Comment on above: Performed By: #### H EMDF, BMP3 ####[address] Hematocrit (Bld) [Volume fraction] 38.5 % Normal 35.0-47.0 [facility] Comment on above: Performed By: #### H EMDF, BMP3 ####[address] Hemoglobin (Bld) [Mass/Vol] 12.0 g/dL Normal 11.7-16.0 [facility] Comment on above: Performed By: #### H EMDF, BMP3 ####[address] Lymphocytes (Bld) [#/Vol] 6.0 10*3/uL High 1.0-4.3 [facility] Comment on above: Performed By: #### H CURLY BMP3 ####[address] Lymphocytes/100 WBC (Bld) 41.1 % High 20.0-40.0 [facility] Comment on above: Performed By: #### H CURLY BMP3 ####[address] MCH (RBC) [Entitic mass] 26.4 pg Normal 26.0-34.0 [facility] Comment on above: Performed By: #### H CURLY BMP3 ####[address] MCHC 31.2 % Low 32.0-36.0 [facility] Comment on above: Performed By: #### H CURLY BMP3 ####[address] MCV (RBC) [Entitic vol] 84.4 fL Normal 79.0-98.0 [facility] Comment on above: Performed By: #### H CURLY BMP3 ####[address] Monocytes (Bld) [#/Vol] 0.8 10*3/uL Normal 0.0-0.8 [facility] Comment on above: Performed By: #### H CURLY BMP3 ####[address] Monocytes/100 WBC (Bld) 5.3 % Normal 2.0-10.0 [facility] Comment on above: Performed By: #### H CURLY BMP3 ####[address] Platelet mean volume (Bld) [Entitic vol] 8.9 fL Normal 7.4-10.4 [facility] Comment on above: Performed By: #### H EMDF, BMP3 ####[facility] [employer] [id number] [place], [place] Platelets (Bld) [#/Vol] 723 10*3/uL High 140-440 [facility] Comment on above: Performed By: #### H EMDF, BMP3 ####[facility] [id number] [place], [place] RBC (Bld) [#/Vol] 4.56 10*6/uL Normal 3.80-5.20 [facility] Comment on above: Performed By: #### H EMDF, BMP3 ####[facility] [address] [place], [place] WBC (Bld) [#/Vol] 14.5 10*3/uL High 3.6-10.7 [facility] Comment on above: Performed By: #### H EMDF, BMP3 ####[place] [address] [place], [place] CULTURE MYCOBACTERIAon 03-13 CULTURE MYCOBACTERIA CULTURE MYCOBACTERI A --> Status: F No acid-fast bacilli isolated after 6 weeks incubation. Normal [facility] Comment on above: Performed By: #### C /TB, S/TB ####[facility] [employer] [id number] [place], [place] CULTURE FUNGUSon 03-08-2021 CULTURE FUNGUS CULTURE FUNGUS --> Status: F No fungus isolated after 21 days. Normal [facility] Comment on above: Performed By: #### S /FUN, C/FUN ####[facility] [employer] [id number] [place], [place] CULTURE FUNGUSon 02-19-2021 CULTURE FUNGUS CULTURE FUNGUS --> Status: F No fungus isolated after 21 days. Normal [facility] Comment on above: Performed By: #### S /FUN, C/FUN ####[facility] [employer] [id number] [place], [place] CULTURE FUNGUS CULTURE FUNGUS --> Status: F No fungus isolated after 21 days. Normal [facility] Comment on above: Performed By: #### S /FUN, C/FUN ####[address] CULT/STAIN - AEROBIC AND FLEY EROBICon 02-18-2021 CULT/STAIN - AEROBIC AND ANAEROBIC STAIN GRAM --> Status: F Few polymorphonuclear cells/lpf. No organisms seen. No organisms seen. CULT./ST. BACTERIA --> Status: F No growth at 3 days. CULTURE ANAEROBE --> Status: F No growth of anaerobes at 5 days. Normal [facility] Comment on above: Performed By: #### C XAAN ####[address] CULTURE MYCOBACTERIA Conc.on 02-14-2021 CULTURE MYCOBACTERIA Conc. CULTURE MYCOBACTERIA Conc. --> Status: F No acid-fast bacilli isolated after 6 weeks incubation. STAIN ACID-FAST --> Status: F No acid-fast bacilli seen in smear. - Method: Fluorescent Stain - Method: Fluorescent Stain Normal [facility] Comment on above: Performed By: #### C /TBC ####[address] Glucose,Bedsideon 02-14-2021 Glucose [Mass/Vol] 153 mg/dL High 70-100 [facility] Comment on above: Result Comment: Test performed by glucose meter. Results may be 10%-15% lowerthan serum/plasma values. (CLIA ID [id number]) Performed By: #### B GLU ####[address] Hemogramon 02-14-2021 Erythrocyte distribution width (RBC) [Ratio] 17.7 % High 11.5-14.5 [facility] Comment on above: Performed By: #### H EMOG ####[address] Hematocrit (Bld) [Volume fraction] 28.7 % Low 35.0-47.0 [facility] Comment on above: Performed By: #### H EMOG ####[address] Hemoglobin (Bld) [Mass/Vol] 8.6 g/dL Low 11.7-16.0 [facility] Comment on above: Performed By: #### H EMOG ####[place] [address] [place], [place] MCH (RBC) [Entitic mass] 27.4 pg Normal 26.0-34.0 [facility] Comment on above: Performed By: #### H EMOG ####[place] [address] [place], [place] MCHC 30.2 % Low 32.0-36.0 [facility] Comment on above: Performed By: #### H EMOG ####[place] [address] [place], [place] MCV (RBC) [Entitic vol] 90.7 fL Normal 79.0-98.0 [facility] Comment on above: Performed By: #### H EMOG ####[place] [address] [place], [place] Platelet mean volume (Bld) [Entitic vol] 7.6 fL Normal 7.4-10.4 [facility] Comment on above: Performed By: #### H EMOG ####[place] [place], [place] Platelets (Bld) [#/Vol] 1210 10*3/uL High 140-440 [facility] Comment on above: Performed By: #### H EMOG ####[place] [place], [place] RBC (Bld) [#/Vol] 3.16 10*6/uL Low 3.80-5.20 [facility] Comment on above: Performed By: #### H EMOG ####[place] [place], [place] WBC (Bld) [#/Vol] 11.4 10*3/uL High 3.6-10.7 [facility] Comment on above: Performed By: #### H EMOG ####[address] [place], [place] Op Noteon 02-14-2021 Op Note Normal [facility] STAIN FUNGUSon 02-14-2021 STAIN FUNGUS STAIN FUNGUS --> Sta tus: F No fungal elements seen. - Method: Direct Exam by Calcofluor Stain - Method: Direct Exam by Calcofluor Stain Normal [facility] Comment on above: Performed By: #### S /FUN, C/FUN ####[place] [address] [place], [place] Hemogramon 02-13-2021 Erythrocyte distribution width (RBC) [Ratio] 17.7 % High 11.5-14.5 [facility] Comment on above: Performed By: #### H EMOG ####[address] [place], [place] Hematocrit (Bld) [Volume fraction] 28.7 % Low 35.0-47.0 [facility] Comment on above: Performed By: #### H EMOG ####[place] [address] [place], [place] Hemoglobin (Bld) [Mass/Vol] 8.8 g/dL Low 11.7-16.0 [facility] Comment on above: Performed By: #### H EMOG ####[place] [address] [place], [place] MCH (RBC) [Entitic mass] 27.8 pg Normal 26.0-34.0 [facility] Comment on above: Performed By: #### H EMOG ####[place] [address] [place] MCHC 30.6 % Low 32.0-36.0 [facility] Comment on above: Performed By: #### H EMOG ####[address] MCV (RBC) [Entitic vol] 90.7 fL Normal 79.0-98.0 [facility] Comment on above: Performed By: #### H EMOG ####[address] Platelet mean volume (Bld) [Entitic vol] 7.6 fL Normal 7.4-10.4 [facility] Comment on above: Performed By: #### H EMOG ####[place] [place], [place] Platelets (Bld) [#/Vol] 1275 10*3/uL High 140-440 [facility] Comment on above: Performed By: #### H EMOG ####[place] [address] [place], [place] RBC (Bld) [#/Vol] 3.17 10*6/uL Low 3.80-5.20 [facility] Comment on above: Performed By: #### H EMOG ####[place] [address] [place], [place] WBC (Bld) [#/Vol] 11.3 10*3/uL High 3.6-10.7 [facility] Comment on above: Performed By: #### H EMOG ####[place] [address] [place], [place] VL Venous Duplex US Lower Ex t Bilateralon 02-13-2021 VL Venous Duplex US Lower Ext Bilateral Normal [facility] CKon 02-12-2021 CK < 20 Low 30-170 [facility] Comment on above: Performed By: #### C K3, HEMOG, CMP3M ####[address] [address] [place], [place] Comp Panel with Mg Reflexon 02-12-2021 ALP [Catalytic activity/Vol] 285 U/L High 38-126 [facility] Comment on above: Performed By: #### C K3, HEMOG, CMP3M ####[place] [address] [place], [place] ALT [Catalytic activity/Vol] 19 U/L Normal 0-34 [facility] Comment on above: Result Comment: The ALT test is performed by an updated assay method.Please note that the reference intervals have beenchanged and are now sex specific. Performed By: #### C K3, HEMOG, CMP3M ####[address] [place], [place] Calcium [Mass/Vol] 9.4 mg/dL Normal 8.4-10.4 [facility] Comment on above: Performed By: #### C K3, HEMOG, CMP3M ####[address] [place] Glucose [Mass/Vol] 106 mg/dL High 70-100 [facility] Comment on above: Performed By: #### C K3, HEMOG, CMP3M ####[address] [address] [place] Urea nitrogen [Mass/Vol] 9 mg/dL Normal 9-20 [facility] Comment on above: Performed By: #### C K3, HEMOG, CMP3M ####[address] [address] [place] Anion gap [Moles/Vol] 6 mmol/L Normal 3-13 [facility] Comment on above: Performed By: #### C K3, HEMOG, CMP3M ####[place] [address] [place] AST [Catalytic activity/Vol] 35 U/L Normal 15-46 [facility] Comment on above: Performed By: #### C K3, HEMOG, CMP3M ####[address] [address] [place] Bilirubin [Mass/Vol] 0.4 mg/dL Normal 0.2-1.3 [facility] Comment on above: Performed By: #### C K3, HEMOG, CMP3M ####[place] [address] [employer] [place], [place] CO2 [Moles/Vol] 28 mmol/L Normal 22-30 [facility] Comment on above: Performed By: #### C K3, HEMOG, CMP3M ####[address] [address] [place] Creatinine [Mass/Vol] 0.65 mg/dL Normal 0.52-1.25 [facility] Comment on above: Performed By: #### C K3, HEMOG, CMP3M ####[place] [address] [employer] [place], [place] eGFR OTHER > 90.0 Normal >60 [facility] Comment on above: Result Comment: KDIG O guidelines provide the following GFR categories:Stage GFR(ml/min/1.73 m2) TermsG1 >=90 Normal or highG2 60-89 Mildly decreased*G3a 45-59 Mildly to moderately [id number] 30-44 Moderately to severely decreasedG4 15-29 Severely decreasedG5 <15 Kidney failure*Relative to young adult level.In the absence of evidence of kidney damage, neither GFRcategory G1 nor G2 fulfill the criteria for CKD.The CKD-EPI equation is validated in individuals 18 yearsof age and older. Currently the best equation forestimating glomerular filtration rate (GFR) from serumcreatinine in children is the Bedside Yu equation.It is less accurate in patients with extremes of musclemass, restriction of dietary protein, ingestion of creatine,extra-renal metabolism of creatinine, or treatment withmedications that affect renal tubular creatinine secretion. Performed By: #### AAN Barrett CMP3M ####[facility] [employer] [id number] [place], [place] GFR/1.73 sq M.predicted among blacks MDRD (S/P/Bld) [Vol rate/Area] mL/min/{1.73_m2} Normal >60 [facility] Comment on above: Performed By: #### ANA Barrett CMP3M ####[facility] [employer] [id number] [place], [place] Protein [Mass/Vol] 6.4 g/dL Normal 6.3-8.2 [facility] Comment on above: Performed By: #### ANA Barrett CMP3M ####[facility] [employer] [id number] [place], [place] Potassium [Moles/Vol] 4.2 mmol/L Normal 3.5-5.1 [facility] Comment on above: Performed By: #### ANA [place] CMP3M ####[facility] [employer] [id number] [place], [place] Sodium [Moles/Vol] 138 mmol/L Normal 135-145 [facility] Comment on above: Performed By: #### C K3, HEMOG, CMP3M ####[id number] [place], [place] Albumin [Mass/Vol] 3.1 g/dL Low 3.5-5.0 [facility] Comment on above: Performed By: #### C K3, HEMOG, CMP3M ####[address] [place], [place] Chloride [Moles/Vol] 103 mmol/L Normal 98-107 [facility] Comment on above: Performed By: #### C K3, HEMOG, CMP3M ####[address] [place], [place] Hemogramon 02-12-2021 Erythrocyte distribution width (RBC) [Ratio] 16.9 % High 11.5-14.5 [facility] Comment on above: Performed By: #### C K3, HEMOG, CMP3M ####[address] [place], [place] Hematocrit (Bld) [Volume fraction] 27.3 % Low 35.0-47.0 [facility] Comment on above: Performed By: #### C K3, HEMOG, CMP3M ####[address] [place], [place] Hemoglobin (Bld) [Mass/Vol] 8.5 g/dL Low 11.7-16.0 [facility] Comment on above: Performed By: #### C K3, HEMOG, CMP3M ####[address] [place], [place] MCH (RBC) [Entitic mass] 28.3 pg Normal 26.0-34.0 [facility] Comment on above: Performed By: #### C K3, HEMOG, CMP3M ####[address] [place], [place] MCHC 31.3 % Low 32.0-36.0 [facility] Comment on above: Performed By: #### C K3, HEMOG, CMP3M ####[address] [place], [place] MCV (RBC) [Entitic vol] 90.5 fL Normal 79.0-98.0 [facility] Comment on above: Performed By: #### C Surya HEMMELANIA CMP3M ####[address] [place], [place] Platelet mean volume (Bld) [Entitic vol] 7.5 fL Normal 7.4-10.4 [facility] Comment on above: Performed By: #### C Surya HEMOG CMP3M ####[address] [place], [place] Platelets (Bld) [#/Vol] 1249 10*3/uL High 140-440 [facility] Comment on above: Performed By: #### C Surya HEMOG CMP3M ####[address] RBC (Bld) [#/Vol] 3.01 10*6/uL Low 3.80-5.20 [facility] Comment on above: Performed By: #### C K3 HEMOG, CMP3M ####[address] [place], [place] WBC (Bld) [#/Vol] 11.1 10*3/uL High 3.6-10.7 [facility] Comment on above: Performed By: #### C K3, HEMOG, CMP3M ####[address] [place], [place] CULT/STAIN - AEROBIC AND FELY EROBICon 02-11-2021 CULT/STAIN - AEROBIC AND ANAEROBIC Normal [facility] Comment on above: Performed By: #### C ARRON ####[address] [place] [address] [address] [place], [place] Hemogramon 02-11-2021 Erythrocyte distribution width (RBC) [Ratio] 17.3 % High 11.5-14.5 [facility] Comment on above: Performed By: #### H EMOG ####[address] Hematocrit (Bld) [Volume fraction] 26.8 % Low 35.0-47.0 [facility] Comment on above: Performed By: #### H EMOG ####[address] [place], [place] Hemoglobin (Bld) [Mass/Vol] 8.1 g/dL Low 11.7-16.0 [facility] Comment on above: Performed By: #### H EMOG ####[address] MCH (RBC) [Entitic mass] 27.8 pg Normal 26.0-34.0 [facility] Comment on above: Performed By: #### H EMOG ####[address] [place], [place] MCHC 30.2 % Low 32.0-36.0 [facility] Comment on above: Performed By: #### H EMOG ####[address] MCV (RBC) [Entitic vol] 91.9 fL Normal 79.0-98.0 [facility] Comment on above: Performed By: #### H EMOG ####[address] Platelet mean volume (Bld) [Entitic vol] 7.8 fL Normal 7.4-10.4 [facility] Comment on above: Performed By: #### H EMOG ####[address] Platelets (Bld) [#/Vol] 1210 10*3/uL High 140-440 [facility] Comment on above: Performed By: #### H EMOG ####[address] RBC (Bld) [#/Vol] 2.92 10*6/uL Low 3.80-5.20 [facility] Comment on above: Performed By: #### H EMOG ####[address] WBC (Bld) [#/Vol] 13.3 10*3/uL High 3.6-10.7 [facility] Comment on above: Performed By: #### H EMOG ####[facility] [place], [place] C-Reactive Proteinon CRP [Mass/Vol] 35.6 mg/L High 0.0-9.9 [facility] Comment on above: Result Comment: . Performed By: #### H EMOG, CK3, CMP3, CRP2, ESR ####[address] [place], [place] CKon 02-10-2021 CK < 20 Low 30-170 [facility] Comment on above: Performed By: #### H EMOG, CK3, CMP3, CRP2, ESR ####[address] [place], [place] Comp Metabolic Panelon 02-10 ALP [Catalytic activity/Vol] 209 U/L High 38-126 [facility] Comment on above: Performed By: #### H EMOG, CK3, CMP3, CRP2, ESR ####[address] [place], [place] ALT [Catalytic activity/Vol] 15 U/L Normal 0-34 [facility] Comment on above: Result Comment: The ALT test is performed by an updated assay method.Please note that the reference intervals have beenchanged and are now sex specific. Performed By: #### H EMOG, CK3, CMP3, CRP2, ESR ####[address] [place], [place] AST [Catalytic activity/Vol] 35 U/L Normal 15-46 [facility] Comment on above: Performed By: #### H EMOG, CK3, CMP3, CRP2, ESR ####[address] [place], [place] Bilirubin [Mass/Vol] 0.5 mg/dL Normal 0.2-1.3 [facility] Comment on above: Performed By: #### H EMOG, CK3, CMP3, CRP2, ESR ####[address] [address] [place], [place] Calcium [Mass/Vol] 9.2 mg/dL Normal 8.4-10.4 [facility] Comment on above: Performed By: #### H EMOG, CK3, CMP3, CRP2, ESR ####[address] [place], [place] Glucose [Mass/Vol] 86 mg/dL Normal 70-100 [facility] Comment on above: Performed By: #### H EMOG, CK3, CMP3, CRP2, ESR ####[address] Protein [Mass/Vol] 6.4 g/dL Normal 6.3-8.2 [facility] Comment on above: Performed By: #### H EMOG, CK3, CMP3, CRP2, ESR ####[address] Urea nitrogen [Mass/Vol] 15 mg/dL Normal 9-20 [facility] Comment on above: Performed By: #### H EMOG, CK3, CMP3, CRP2, ESR ####[address] Anion gap [Moles/Vol] 6 mmol/L Normal 3-13 [facility] Comment on above: Performed By: #### H EMOG, CK3, CMP3, CRP2, ESR ####[address] CO2 [Moles/Vol] 29 mmol/L Normal 22-30 [facility] Comment on above: Performed By: #### H EMOG, CK3, CMP3, CRP2, ESR ####[address] Creatinine [Mass/Vol] 0.74 mg/dL Normal 0.52-1.25 [facility] Comment on above: Performed By: #### H EMOG, CK3, CMP3, CRP2, ESR ####[facility] [employer] [id number] [place], [place] eGFR OTHER > 90.0 Normal >60 [facility] Comment on above: Result Comment: KDIG O guidelines provide the following GFR categories:Stage GFR(ml/min/1.73 m2) TermsG1 >=90 Normal or highG2 60-89 Mildly decreased*G3a 45-59 Mildly to moderately [id number] 30-44 Moderately to severely decreasedG4 15-29 Severely decreasedG5 <15 Kidney failure*Relative to young adult level.In the absence of evidence of kidney damage, neither GFRcategory G1 nor G2 fulfill the criteria for CKD.The CKD-EPI equation is validated in individuals 18 yearsof age and older. Currently the best equation forestimating glomerular filtration rate (GFR) from serumcreatinine in children is the Bedside Yu equation.It is less accurate in patients with extremes of musclemass, restriction of dietary protein, ingestion of creatine,extra-renal metabolism of creatinine, or treatment withmedications that affect renal tubular creatinine secretion. Performed By: #### H EMOG, CK3, CMP3, CRP2, ESR ####[facility] [address] [place], [place] GFR/1.73 sq M.predicted among blacks MDRD (S/P/Bld) [Vol rate/Area] mL/min/{1.73_m2} Normal >60 [facility] Comment on above: Performed By: #### H EMOG, CK3, CMP3, CRP2, ESR ####[facility] [address] [place], [place] Albumin [Mass/Vol] 3.1 g/dL Low 3.5-5.0 [facility] Comment on above: Performed By: #### H EMOG, CK3, CMP3, CRP2, ESR ####[facility] [address] [place], [place] Chloride [Moles/Vol] 102 mmol/L Normal 98-107 [facility] Comment on above: Performed By: #### H EMOG, CK3, CMP3, CRP2, ESR ####[facility] [employer] [id number] [place], [place] Potassium [Moles/Vol] 4.5 mmol/L Normal 3.5-5.1 [facility] Comment on above: Performed By: #### H EMOG, CK3, CMP3, CRP2, ESR ####[address] [place], [place] Sodium [Moles/Vol] 137 mmol/L Normal 135-145 [facility] Comment on above: Performed By: #### H EMOG, CK3, CMP3, CRP2, ESR ####[address] Hemogramon 02-10-2021 Erythrocyte distribution width (RBC) [Ratio] 17.0 % High 11.5-14.5 [facility] Comment on above: Performed By: #### H EMOG, CK3, CMP3, CRP2, ESR ####[address] Hematocrit (Bld) [Volume fraction] 27.2 % Low 35.0-47.0 [facility] Comment on above: Performed By: #### H EMOG, CK3, CMP3, CRP2, ESR ####[address] Hemoglobin (Bld) [Mass/Vol] 8.4 g/dL Low 11.7-16.0 [facility] Comment on above: Performed By: #### H EMOG, CK3, CMP3, CRP2, ESR ####[address] MCH (RBC) [Entitic mass] 27.9 pg Normal 26.0-34.0 [facility] Comment on above: Performed By: #### H EMOG, CK3, CMP3, CRP2, ESR ####[address] [place], [place] MCHC 30.9 % Low 32.0-36.0 [facility] Comment on above: Performed By: #### H EMOG, CK3, CMP3, CRP2, ESR ####[address] MCV (RBC) [Entitic vol] 90.4 fL Normal 79.0-98.0 [facility] Comment on above: Performed By: #### H EMOG, CK3, CMP3, CRP2, ESR ####[address] Platelet mean volume (Bld) [Entitic vol] 7.6 fL Normal 7.4-10.4 [facility] Comment on above: Performed By: #### H EMOG, CK3, CMP3, CRP2, ESR ####[address] Platelets (Bld) [#/Vol] 1318 10*3/uL High 140-440 [facility] Comment on above: Performed By: #### H EMOG, CK3, CMP3, CRP2, ESR ####[address] RBC (Bld) [#/Vol] 3.01 10*6/uL Low 3.80-5.20 [facility] Comment on above: Performed By: #### H EMOG, CK3, CMP3, CRP2, ESR ####[address] WBC (Bld) [#/Vol] 13.1 10*3/uL High 3.6-10.7 [facility] Comment on above: Performed By: #### H EMOG, CK3, CMP3, CRP2, ESR ####[address] Sed Rateon 02-10-2021 Sed Rate 84 mm/h High 0-20 [facility] Comment on above: Performed By: #### H EMOG, CK3, CMP3, CRP2, ESR ####[address] Hemogramon 02-09-2021 Erythrocyte distribution width (RBC) [Ratio] 17.1 % High 11.5-14.5 [facility] Comment on above: Performed By: #### H EMOG ####[address] [place], [place] Hematocrit (Bld) [Volume fraction] 26.4 % Low 35.0-47.0 [facility] Comment on above: Performed By: #### H EMOG ####[address] [place], [place] Hemoglobin (Bld) [Mass/Vol] 8.2 g/dL Low 11.7-16.0 [facility] Comment on above: Performed By: #### H EMOG ####[address] MCH (RBC) [Entitic mass] 28.1 pg Normal 26.0-34.0 [facility] Comment on above: Performed By: #### H EMOG ####[address] MCHC 31.0 % Low 32.0-36.0 [facility] Comment on above: Performed By: #### H EMOG ####[address] MCV (RBC) [Entitic vol] 90.6 fL Normal 79.0-98.0 [facility] Comment on above: Performed By: #### H EMOG ####[address] Platelet mean volume (Bld) [Entitic vol] 7.6 fL Normal 7.4-10.4 [facility] Comment on above: Performed By: #### H EMOG ####[address] Platelets (Bld) [#/Vol] 1199 10*3/uL High 140-440 [facility] Comment on above: Performed By: #### H EMOG ####[address] RBC (Bld) [#/Vol] 2.92 10*6/uL Low 3.80-5.20 [facility] Comment on above: Performed By: #### H EMOG ####[address] [place], [place] WBC (Bld) [#/Vol] 11.5 10*3/uL High 3.6-10.7 [facility] Comment on above: Performed By: #### H EMOG ####[address] Hemogramon 02-08-2021 Erythrocyte distribution width (RBC) [Ratio] 16.7 % High 11.5-14.5 [facility] Comment on above: Performed By: #### H EMOG ####[address] Hematocrit (Bld) [Volume fraction] 26.7 % Low 35.0-47.0 [facility] Comment on above: Performed By: #### H EMOG ####[address] Hemoglobin (Bld) [Mass/Vol] 8.3 g/dL Low 11.7-16.0 [facility] Comment on above: Performed By: #### H EMOG ####[address] [place], [place] MCH (RBC) [Entitic mass] 27.9 pg Normal 26.0-34.0 [facility] Comment on above: Performed By: #### H EMOG ####[address] [place] MCHC 31.1 % Low 32.0-36.0 [facility] Comment on above: Performed By: #### H EMOG ####[address] MCV (RBC) [Entitic vol] 89.7 fL Normal 79.0-98.0 [facility] Comment on above: Performed By: #### H EMOG ####[address] Platelet mean volume (Bld) [Entitic vol] 7.7 fL Normal 7.4-10.4 [facility] Comment on above: Performed By: #### H EMOG ####[facility] [place], [place] Platelets (Bld) [#/Vol] 1217 10*3/uL High 140-440 [facility] Comment on above: Performed By: #### H EMOG ####[facility] [place], [place] RBC (Bld) [#/Vol] 2.97 10*6/uL Low 3.80-5.20 [facility] Comment on above: Performed By: #### H EMOG ####[address] [place], [place] WBC (Bld) [#/Vol] 13.4 10*3/uL High 3.6-10.7 [facility] Comment on above: Performed By: #### H EMOG ####[address] [place], [place] Op Noteon 02-08-2021 Op Note Normal [facility] VL Venous Duplex US Lower Ex t Bilateralon 02-08-2021 VL Venous Duplex US Lower Ext Bilateral Normal [facility] HCG,Urine Qualon 02-07-2021 Beta HCG ( test) Ql (U) Negative Normal Negative [facility] Comment on above: Result Comment: Plea se note: Very dilute urine specimens, as indicated by a low specificgravity, may not contain account manager sales representative levels of hCG. If is stillsuspected, a first morning urine specimen should be collected 48 hours laterand tested. is the most common reason for HCG in urine, althoughchoriocarcinoma, hydatidiform mole, and certain nontropho-blastic malignancies also result in detectable urinary HCGlevels. Sensitivity = 20mIU/mL. Performed By: #### H CGUR ####[facility] [place], [place] Hemogramon 02-07-2021 Erythrocyte distribution width (RBC) [Ratio] 16.8 % High 11.5-14.5 [facility] Comment on above: Performed By: #### H EMOG ####[address] [place], [place] Hematocrit (Bld) [Volume fraction] 26.0 % Low 35.0-47.0 [facility] Comment on above: Performed By: #### H EMOG ####[address] [place], [place] Hemoglobin (Bld) [Mass/Vol] 8.0 g/dL Low 11.7-16.0 [facility] Comment on above: Performed By: #### H EMOG ####[address] MCH (RBC) [Entitic mass] 27.8 pg Normal 26.0-34.0 [facility] Comment on above: Performed By: #### H EMOG ####[address] MCHC 30.9 % Low 32.0-36.0 [facility] Comment on above: Performed By: #### H EMOG ####[address] MCV (RBC) [Entitic vol] 90.0 fL Normal 79.0-98.0 [facility] Comment on above: Performed By: #### H EMOG ####[address] Platelet mean volume (Bld) [Entitic vol] 7.6 fL Normal 7.4-10.4 [facility] Comment on above: Performed By: #### H EMOG ####[address] Platelets (Bld) [#/Vol] 1236 10*3/uL High 140-440 [facility] Comment on above: Performed By: #### H EMOG ####[address] RBC (Bld) [#/Vol] 2.89 10*6/uL Low 3.80-5.20 [facility] Comment on above: Performed By: #### H EMOG ####[address] WBC (Bld) [#/Vol] 15.2 10*3/uL High 3.6-10.7 [facility] Comment on above: Performed By: #### H EMOG ####[address] Glucose,Bedsideon 02-06-2021 Glucose [Mass/Vol] 119 mg/dL High 70-100 [facility] Comment on above: Result Comment: Test performed by glucose meter. Results may be 10%-15% lowerthan serum/plasma values. (CLIA ID [id number]) Performed By: #### B GLU ####[address] Hemogramon 02-06-2021 Erythrocyte distribution width (RBC) [Ratio] 17.0 % High 11.5-14.5 [facility] Comment on above: Performed By: #### H EMOG ####[address] Hematocrit (Bld) [Volume fraction] 26.2 % Low 35.0-47.0 [facility] Comment on above: Performed By: #### H EMOG ####[address] [place], [place] Hemoglobin (Bld) [Mass/Vol] 8.0 g/dL Low 11.7-16.0 [facility] Comment on above: Performed By: #### H EMOG ####[address] MCH (RBC) [Entitic mass] 27.9 pg Normal 26.0-34.0 [facility] Comment on above: Performed By: #### H EMOG ####[address] MCHC 30.7 % Low 32.0-36.0 [facility] Comment on above: Performed By: #### H EMOG ####[address] MCV (RBC) [Entitic vol] 90.8 fL Normal 79.0-98.0 [facility] Comment on above: Performed By: #### H EMOG ####[address] [place], [place] Platelet mean volume (Bld) [Entitic vol] 7.6 fL Normal 7.4-10.4 [facility] Comment on above: Performed By: #### H EMOG ####[address] [place], [place] Platelets (Bld) [#/Vol] 1130 10*3/uL High 140-440 [facility] Comment on above: Performed By: #### H EMOG ####[address] [place], [place] RBC (Bld) [#/Vol] 2.88 10*6/uL Low 3.80-5.20 [facility] Comment on above: Performed By: #### H EMOG ####[address] WBC (Bld) [#/Vol] 16.9 10*3/uL High 3.6-10.7 [facility] Comment on above: Performed By: #### H EMOG ####[address] [place], [place] Glucose,Bedsideon 02-05-2021 Glucose [Mass/Vol] 132 mg/dL High 70-100 [facility] Comment on above: Result Comment: Test performed by glucose meter. Results may be 10%-15% lowerthan serum/plasma values. (CLIA ID [id number]) Performed By: #### B GLU ####[address] Hemogramon 02-05-2021 Erythrocyte distribution width (RBC) [Ratio] 16.7 % High 11.5-14.5 [facility] Comment on above: Performed By: #### H EMOG ####[address] [place], [place] Hematocrit (Bld) [Volume fraction] 25.3 % Low 35.0-47.0 [facility] Comment on above: Performed By: #### H EMOG ####[address] [place] Hemoglobin (Bld) [Mass/Vol] 8.0 g/dL Low 11.7-16.0 [facility] Comment on above: Performed By: #### H EMOG ####[address] MCH (RBC) [Entitic mass] 28.7 pg Normal 26.0-34.0 [facility] Comment on above: Performed By: #### H EMOG ####[address] MCHC 31.5 % Low 32.0-36.0 [facility] Comment on above: Performed By: #### H EMOG ####[address] MCV (RBC) [Entitic vol] 91.1 fL Normal 79.0-98.0 [facility] Comment on above: Performed By: #### H EMOG ####[address] Platelet mean volume (Bld) [Entitic vol] 8.1 fL Normal 7.4-10.4 [facility] Comment on above: Performed By: #### H EMOG ####[address] Platelets (Bld) [#/Vol] 1096 10*3/uL High 140-440 [facility] Comment on above: Performed By: #### H EMOG ####[address] RBC (Bld) [#/Vol] 2.77 10*6/uL Low 3.80-5.20 [facility] Comment on above: Performed By: #### H EMOG ####[address] WBC (Bld) [#/Vol] 16.7 10*3/uL High 3.6-10.7 [facility] Comment on above: Performed By: #### H EMOG ####[address] [place], [place] VL Venous Duplex US Lower Ex t Bilateralon 02-05-2021 VL Venous Duplex US Lower Ext Bilateral Normal [facility] Hemogramon 02-04-2021 Erythrocyte distribution width (RBC) [Ratio] 16.8 % High 11.5-14.5 [facility] Comment on above: Performed By: #### H EMOG ####[address] [place], [place] Hematocrit (Bld) [Volume fraction] 24.8 % Low 35.0-47.0 [facility] Comment on above: Performed By: #### H EMOG ####[address] [place] Hemoglobin (Bld) [Mass/Vol] 7.7 g/dL Low 11.7-16.0 [facility] Comment on above: Performed By: #### H EMOG ####[address] [place] MCH (RBC) [Entitic mass] 28.3 pg Normal 26.0-34.0 [facility] Comment on above: Performed By: #### H EMOG ####[address] [place] MCHC 30.8 % Low 32.0-36.0 [facility] Comment on above: Performed By: #### H EMOG ####[address] [place] MCV (RBC) [Entitic vol] 91.8 fL Normal 79.0-98.0 [facility] Comment on above: Performed By: #### H EMOG ####[address] Platelet mean volume (Bld) [Entitic vol] 8.1 fL Normal 7.4-10.4 [facility] Comment on above: Performed By: #### H EMOG ####[facility] [id number] [place], [place] Platelets (Bld) [#/Vol] 978 10*3/uL High 140-440 [facility] Comment on above: Performed By: #### H EMOG ####[address] [place], [place] RBC (Bld) [#/Vol] 2.71 10*6/uL Low 3.80-5.20 [facility] Comment on above: Performed By: #### H EMOG ####[address] [place], [place] WBC (Bld) [#/Vol] 17.4 10*3/uL High 3.6-10.7 [facility] Comment on above: Performed By: #### H EMOG ####[address] [place], [place] CULTURE ANAEROBEon CULTURE ANAEROBE CULTURE ANAEROBE --> Status: F No growth of anaerobes at 5 days. Normal [facility] Comment on above: Performed By: #### C XTIS ####[facility] [place] [id number] [facility] [id number] [place], [place] #### C/FELY ####[address] [place] CULTURE ANAEROBE CULTURE ANAEROBE --> Status: F No growth of anaerobes at 5 days. Normal [facility] Comment on above: Performed By: #### C XTIS, C/FELY ####[address] [place] Hemogramon 02-03-2021 Erythrocyte distribution width (RBC) [Ratio] 16.2 % High 11.5-14.5 [facility] Comment on above: Performed By: #### H EMOG ####[address] [place] Hematocrit (Bld) [Volume fraction] 26.0 % Low 35.0-47.0 [facility] Comment on above: Performed By: #### H EMOG ####[address] [place] Hemoglobin (Bld) [Mass/Vol] 8.0 g/dL Low 11.7-16.0 [facility] Comment on above: Performed By: #### H EMOG ####[address] [place] MCH (RBC) [Entitic mass] 27.9 pg Normal 26.0-34.0 [facility] Comment on above: Performed By: #### H EMOG ####[address] [place] MCHC 30.8 % Low 32.0-36.0 [facility] Comment on above: Performed By: #### H EMOG ####[address] MCV (RBC) [Entitic vol] 90.5 fL Normal 79.0-98.0 [facility] Comment on above: Performed By: #### H EMOG ####[address] Platelet mean volume (Bld) [Entitic vol] 8.1 fL Normal 7.4-10.4 [facility] Comment on above: Performed By: #### H EMOG ####[address] [place], [place] Platelets (Bld) [#/Vol] 956 10*3/uL High 140-440 [facility] Comment on above: Performed By: #### H EMOG ####[address] RBC (Bld) [#/Vol] 2.88 10*6/uL Low 3.80-5.20 [facility] Comment on above: Performed By: #### H EMOG ####[address] WBC (Bld) [#/Vol] 17.4 10*3/uL High 3.6-10.7 [facility] Comment on above: Performed By: #### H EMOG ####[address] Hemogramon 02-02-2021 Erythrocyte distribution width (RBC) [Ratio] 15.9 % High 11.5-14.5 [facility] Comment on above: Performed By: #### H EMOG ####[address] Hematocrit (Bld) [Volume fraction] 25.3 % Low 35.0-47.0 [facility] Comment on above: Performed By: #### H EMOG ####[address] Hemoglobin (Bld) [Mass/Vol] 8.0 g/dL Low 11.7-16.0 [facility] Comment on above: Performed By: #### H EMOG ####[address] MCH (RBC) [Entitic mass] 28.8 pg Normal 26.0-34.0 [facility] Comment on above: Performed By: #### H EMOG ####[address] MCHC 31.7 % Low 32.0-36.0 [facility] Comment on above: Performed By: #### H EMOG ####[address] MCV (RBC) [Entitic vol] 91.0 fL Normal 79.0-98.0 [facility] Comment on above: Performed By: #### H EMOG ####[address] Platelet mean volume (Bld) [Entitic vol] 8.2 fL Normal 7.4-10.4 [facility] Comment on above: Performed By: #### H EMOG ####[address] Platelets (Bld) [#/Vol] 873 10*3/uL High 140-440 [facility] Comment on above: Performed By: #### H EMOG ####[address] [place], [place] RBC (Bld) [#/Vol] 2.78 10*6/uL Low 3.80-5.20 [facility] Comment on above: Performed By: #### H EMOG ####[address] WBC (Bld) [#/Vol] 16.3 10*3/uL High 3.6-10.7 [facility] Comment on above: Performed By: #### H EMOG ####[address] CULTURE AND STAIN - TISSUEon 02-01-2021 CULTURE AND STAIN - TISSUE Normal [facility] Comment on above: Performed By: #### C XTIS, C/FELY ####[address] CULTURE AND STAIN - TISSUE Normal [facility] Comment on above: Performed By: #### C XTIS ####[address] [place] [address] [address] [place], [place] #### C/FELY ####[address] Glucose,Bedsideon 02-01-2021 Glucose [Mass/Vol] 140 mg/dL High 70-100 [facility] Comment on above: Result Comment: Test performed by glucose meter. Results may be 10%-15% lowerthan serum/plasma values. (CLIA ID [id number]) Performed By: #### B GLU ####[address] Hemogramon 02-01-2021 Erythrocyte distribution width (RBC) [Ratio] 15.7 % High 11.5-14.5 [facility] Comment on above: Performed By: #### H EMOG ####[address] [place], [place] Hematocrit (Bld) [Volume fraction] 24.8 % Low 35.0-47.0 [facility] Comment on above: Performed By: #### H EMOG ####[address] [place], [place] Hemoglobin (Bld) [Mass/Vol] 7.7 g/dL Low 11.7-16.0 [facility] Comment on above: Performed By: #### H EMOG ####[address] MCH (RBC) [Entitic mass] 28.1 pg Normal 26.0-34.0 [facility] Comment on above: Performed By: #### H EMOG ####[address] MCHC 31.1 % Low 32.0-36.0 [facility] Comment on above: Performed By: #### H EMOG ####[address] MCV (RBC) [Entitic vol] 90.5 fL Normal 79.0-98.0 [facility] Comment on above: Performed By: #### H EMOG ####[address] Platelet mean volume (Bld) [Entitic vol] 8.8 fL Normal 7.4-10.4 [facility] Comment on above: Performed By: #### H EMOG ####[address] Platelets (Bld) [#/Vol] 819 10*3/uL High 140-440 [facility] Comment on above: Performed By: #### H EMOG ####[address] RBC (Bld) [#/Vol] 2.74 10*6/uL Low 3.80-5.20 [facility] Comment on above: Performed By: #### H EMOG ####[address] [place], [place] WBC (Bld) [#/Vol] 13.6 10*3/uL High 3.6-10.7 [facility] Comment on above: Performed By: #### H EMOG ####[address] [place], [place] Hepatitis C RNA Quanton 01-17 Hep C RNA Quant (log) 7.17 {Log_IU} Abnormal <1.18 [facility] Comment on above: Performed By: #### C K3, HCVQ ####[address] [place], [place] Hepatitis C RNA Quant [id number] [IU]/mL Abnormal <15 [facility] Comment on above: Performed By: #### C K3, HCVQ ####[address] [place], [place] Leukodepleted Red Cellson Leukodepleted Red Cells Normal [facility] Comment on above: Performed By: #### T SGL ####[facility]#### LRC ####[address] [address] VL Venous Duplex US Lower Ex t Bilateralon 02-01-2021 VL Venous Duplex US Lower Ext Bilateral Normal [facility] CKon 01-31-2021 CK [Catalytic activity/Vol] 91 U/L Normal 30-170 [facility] Comment on above: Performed By: #### C K3, HCVQ ####[address] [place], [place] CR Chest Portableon 02-01-20 21 CR Chest Portable Normal [facility] Hemogramon 01-31-2021 Erythrocyte distribution width (RBC) [Ratio] 16.0 % High 11.5-14.5 [facility] Comment on above: Performed By: #### H EMOG ####[address] [place], [place] Hematocrit (Bld) [Volume fraction] 23.9 % Low 35.0-47.0 [facility] Comment on above: Performed By: #### H EMOG ####[id number] [place], [place] Hemoglobin (Bld) [Mass/Vol] 7.3 g/dL Low 11.7-16.0 [facility] Comment on above: Performed By: #### H EMOG ####[address] MCH (RBC) [Entitic mass] 27.7 pg Normal 26.0-34.0 [facility] Comment on above: Performed By: #### H EMOG ####[address] MCHC 30.6 % Low 32.0-36.0 [facility] Comment on above: Performed By: #### H EMOG ####[address] MCV (RBC) [Entitic vol] 90.4 fL Normal 79.0-98.0 [facility] Comment on above: Performed By: #### H EMOG ####[address] Platelet mean volume (Bld) [Entitic vol] 8.9 fL Normal 7.4-10.4 [facility] Comment on above: Performed By: #### H EMOG ####[address] Platelets (Bld) [#/Vol] 765 10*3/uL High 140-440 [facility] Comment on above: Performed By: #### H EMOG ####[address] RBC (Bld) [#/Vol] 2.64 10*6/uL Low 3.80-5.20 [facility] Comment on above: Performed By: #### H EMOG ####[address] WBC (Bld) [#/Vol] 14.9 10*3/uL High 3.6-10.7 [facility] Comment on above: Performed By: #### H EMOG ####[facility] [employer] [id number] [place], [place] Basic Metabolic Panelon 01-17 Calcium [Mass/Vol] 9.7 mg/dL Normal 8.4-10.4 [facility] Comment on above: Performed By: #### H DAYLIN BMP3M ####[facility] [employer] [id number] [place], [place] Glucose [Mass/Vol] 109 mg/dL High 70-100 [facility] Comment on above: Performed By: #### H DAYLIN BMP3M ####[facility] [employer] [id number] [place], [place] Anion gap [Moles/Vol] 14 mmol/L High 3-13 [facility] Comment on above: Performed By: #### H DAYLIN BMP3M ####[facility] [employer] [id number] [place], [place] CO2 [Moles/Vol] 26 mmol/L Normal 22-30 [facility] Comment on above: Performed By: #### H DAYLIN BMP3M ####[facility] [employer] [id number] [place], [place] Creatinine [Mass/Vol] 0.69 mg/dL Normal 0.52-1.25 [facility] Comment on above: Performed By: #### H EMOJoi BMP3M ####[facility] [employer] [id number] [place], [place] eGFR OTHER > 90.0 Normal >60 [facility] Comment on above: Result Comment: KDIG O guidelines provide the following GFR categories:Stage GFR(ml/min/1.73 m2) TermsG1 >=90 Normal or highG2 60-89 Mildly decreased*G3a 45-59 Mildly to moderately fuclvrbyvJ5z 30-44 Moderately to severely decreasedG4 15-29 Severely decreasedG5 <15 Kidney failure*Relative to young adult level.In the absence of evidence of kidney damage, neither GFRcategory G1 nor G2 fulfill the criteria for CKD.The CKD-EPI equation is validated in individuals 18 yearsof age and older. Currently the best equation forestimating glomerular filtration rate (GFR) from serumcreatinine in children is the Bedside Yu equation.It is less accurate in patients with extremes of musclemass, restriction of dietary protein, ingestion of creatine,extra-renal metabolism of creatinine, or treatment withmedications that affect renal tubular creatinine secretion. Performed By: #### ZACH WILHELM3M ####[address] [place], [place] GFR/1.73 sq M.predicted among blacks MDRD (S/P/Bld) [Vol rate/Area] mL/min/{1.73_m2} Normal >60 [facility] Comment on above: Performed By: #### ZACH WILHELM3M ####[address] Urea nitrogen [Mass/Vol] 9 mg/dL Normal 9-20 [facility] Comment on above: Performed By: #### ZACH WILHELM3M ####[address] Chloride [Moles/Vol] 98 mmol/L Normal 98-107 [facility] Comment on above: Performed By: #### ZACH WILHELM3M ####[address] Potassium [Moles/Vol] 4.5 mmol/L Normal 3.5-5.1 [facility] Comment on above: Performed By: #### ZACH WILHELM3M ####[address] [place], [place] Sodium [Moles/Vol] 139 mmol/L Normal 135-145 [facility] Comment on above: Performed By: #### ZACH WILHELM3M ####[address] CR Chest Portableon 01-31-20 21 CR Chest Portable Normal [facility] CULT/STAIN - AEROBIC AND FELY EROBICon 01-30-2021 CULT/STAIN - AEROBIC AND ANAEROBIC Normal [facility] Comment on above: Performed By: #### S /GRM ####[address] #### CXAAN ####[address] [id number] CULTURE MYCOBACTERIAon 01-30 CULTURE MYCOBACTERIA CULTURE MYCOBACTERI A --> Status: F No acid-fast bacilli isolated after 6 weeks incubation. STAIN ACID-FAST --> Status: F No acid-fast bacilli seen in smear. - Method: Fluorescent Stain - Method: Fluorescent Stain Normal [facility] Comment on above: Performed By: #### C /TB ####[address] Hemogramon 01-30-2021 Erythrocyte distribution width (RBC) [Ratio] 15.9 % High 11.5-14.5 [facility] Comment on above: Performed By: #### H ZACH MAO3Ward ####[address] Hematocrit (Bld) [Volume fraction] 32.0 % Low 35.0-47.0 [facility] Comment on above: Performed By: #### H ZACH MAO3Ward ####[address] [place], [place] Hemoglobin (Bld) [Mass/Vol] 10.0 g/dL Low 11.7-16.0 [facility] Comment on above: Performed By: #### H ZACH MAO3Ward ####[address] MCH (RBC) [Entitic mass] 28.3 pg Normal 26.0-34.0 [facility] Comment on above: Performed By: #### H ZACH MAO3Ward ####[address] [place], [place] MCHC 31.3 % Low 32.0-36.0 [facility] Comment on above: Performed By: #### JACOBY WILHELM ####[address] MCV (RBC) [Entitic vol] 90.3 fL Normal 79.0-98.0 [facility] Comment on above: Performed By: #### ZACH WILHELM3Ward ####[address] [place], [place] Platelet mean volume (Bld) [Entitic vol] 8.9 fL Normal 7.4-10.4 [facility] Comment on above: Performed By: #### ZACH WILHELM3M ####[address] Platelets (Bld) [#/Vol] 862 10*3/uL High 140-440 [facility] Comment on above: Performed By: #### ZACH WILHELM3M ####[address] RBC (Bld) [#/Vol] 3.54 10*6/uL Low 3.80-5.20 [facility] Comment on above: Performed By: #### ZACH WILHELM3M ####[address] WBC (Bld) [#/Vol] 21.3 10*3/uL High 3.6-10.7 [facility] Comment on above: Performed By: #### ZACH WILHELM3M ####[address] Hepatitis C RNA Quanton 01-17 Note Interpretation Normal [facility] Comment on above: Result Comment: The linear detection limit for this assay is 15 HCV IU/ml.A result of <15 IU (<1.18 log IU) indicates that HCVwas detected, but at a level below the linear cutoff.A result of None Detected means that no HCV RNA was detected. Performed By: #### C K3, HCVQ ####[address] STAIN ACID-FASTon 01-30-2021 STAIN ACID-FAST STAIN ACID-FAST --> Status: F No acid-fast bacilli seen in smear. - Method: Fluorescent Stain - Method: Fluorescent Stain Normal [facility] Comment on above: Performed By: #### C /TB, S/TB ####[address] [place], [place] STAIN FUNGUSon 01-30-2021 STAIN FUNGUS STAIN FUNGUS --> Sta tus: F No fungal elements seen. - Method: Direct Exam by Calcofluor Stain - Method: Direct Exam by Calcofluor Stain Normal [facility] Comment on above: Performed By: #### S /FUN, C/FUN ####[address] [place], [place] VL Venous Duplex US Lower Ex t Bilateralon 01-30-2021 VL Venous Duplex US Lower Ext Bilateral Normal [facility] Vancomycin Troughon 01-31-20 Vancomycin Trough 8.7 ug/mL Low 15.0-20.0 [facility] Comment on above: Result Comment: . Performed By: #### V ANCT ####[address] [place], [place] Basic Metabolic Panelon 01-17 Calcium [Mass/Vol] 9.6 mg/dL Normal 8.4-10.4 [facility] Comment on above: Performed By: #### B MP3M, HEMOG ####[address] [place], [place] Glucose [Mass/Vol] 92 mg/dL Normal 70-100 [facility] Comment on above: Performed By: #### B MP3M, HEMOG ####[address] [place], [place] Anion gap [Moles/Vol] 5 mmol/L Normal 3-13 [facility] Comment on above: Performed By: #### B MP3M, HEMOG ####[facility] [employer] [id number] [place], [place] CO2 [Moles/Vol] 29 mmol/L Normal 22-30 [facility] Comment on above: Performed By: #### B MP3M, HEMOG ####[address] [place], [place] Creatinine [Mass/Vol] 0.58 mg/dL Normal 0.52-1.25 [facility] Comment on above: Performed By: #### Jacek ALBRIGHT3Ward HEMOG ####[address] [place], [place] eGFR OTHER > 90.0 Normal >60 [facility] Comment on above: Result Comment: KDIG O guidelines provide the following GFR categories:Stage GFR(ml/min/1.73 m2) TermsG1 >=90 Normal or highG2 60-89 Mildly decreased*G3a 45-59 Mildly to moderately orjvjcvofW4w 30-44 Moderately to severely decreasedG4 15-29 Severely decreasedG5 <15 Kidney failure*Relative to young adult level.In the absence of evidence of kidney damage, neither GFRcategory G1 nor G2 fulfill the criteria for CKD.The CKD-EPI equation is validated in individuals 18 yearsof age and older. Currently the best equation forestimating glomerular filtration rate (GFR) from serumcreatinine in children is the Bedside Yu equation.It is less accurate in patients with extremes of musclemass, restriction of dietary protein, ingestion of creatine,extra-renal metabolism of creatinine, or treatment withmedications that affect renal tubular creatinine secretion. Performed By: #### Jacek VILLANUEVA HEMOG ####[address] [place], [place] GFR/1.73 sq M.predicted among blacks MDRD (S/P/Bld) [Vol rate/Area] mL/min/{1.73_m2} Normal >60 [facility] Comment on above: Performed By: #### Jacek VILLANUEVA HEMOG ####[address] [place], [place] Urea nitrogen [Mass/Vol] 11 mg/dL Normal 9-20 [facility] Comment on above: Performed By: #### Jacek ALBRIGHT3Ward HEMOG ####[address] [place], [place] Chloride [Moles/Vol] 100 mmol/L Normal 98-107 [facility] Comment on above: Performed By: #### Jacek ALBRIGHT3M, HEMOG ####[facility] Potassium [Moles/Vol] 5.2 mmol/L High 3.5-5.1 [facility] Comment on above: Performed By: #### B MP3M, HEMOG ####[facility] Sodium [Moles/Vol] 134 mmol/L Low 135-145 [facility] Comment on above: Performed By: #### B MP3M, HEMOG ####[facility], [place] Comp Metabolic Panelon 01-29 ALT [Catalytic activity/Vol] 17 U/L Normal 0-34 [facility] Comment on above: Result Comment: The ALT test is performed by an updated assay method.Please note that the reference intervals have beenchanged and are now sex specific. Performed By: #### C MP3, HEMOG ####[address] Calcium [Mass/Vol] 8.4 mg/dL Normal 8.4-10.4 [facility] Comment on above: Performed By: #### C MP3, HEMOG ####[address] Glucose [Mass/Vol] 151 mg/dL High 70-100 [facility] Comment on above: Performed By: #### C MP3, HEMOG ####[address] ALP [Catalytic activity/Vol] 251 U/L High 38-126 [facility] Comment on above: Performed By: #### C MP3, HEMOG ####[facility] Anion gap [Moles/Vol] 9 mmol/L Normal 3-13 [facility] Comment on above: Performed By: #### C MP3, HEMOG ####[address] AST [Catalytic activity/Vol] 31 U/L Normal 15-46 [facility] Comment on above: Performed By: #### C MP3, HEMOG ####[facility] [place], [place] Bilirubin [Mass/Vol] 0.4 mg/dL Normal 0.2-1.3 [facility] Comment on above: Performed By: #### C MP3, HEMOG ####[facility] [place], [place] CO2 [Moles/Vol] 25 mmol/L Normal 22-30 [facility] Comment on above: Performed By: #### C MP3, HEMOG ####[address] [place], [place] Creatinine [Mass/Vol] 0.61 mg/dL Normal 0.52-1.25 [facility] Comment on above: Performed By: #### C MP3, HEMOG ####[address] [place], [place] eGFR OTHER > 90.0 Normal >60 [facility] Comment on above: Result Comment: KDIG O guidelines provide the following GFR categories:Stage GFR(ml/min/1.73 m2) TermsG1 >=90 Normal or highG2 60-89 Mildly decreased*G3a 45-59 Mildly to moderately jsxtukpadG0g 30-44 Moderately to severely decreasedG4 15-29 Severely decreasedG5 <15 Kidney failure*Relative to young adult level.In the absence of evidence of kidney damage, neither GFRcategory G1 nor G2 fulfill the criteria for CKD.The CKD-EPI equation is validated in individuals 18 yearsof age and older. Currently the best equation forestimating glomerular filtration rate (GFR) from serumcreatinine in children is the Bedside Yu equation.It is less accurate in patients with extremes of musclemass, restriction of dietary protein, ingestion of creatine,extra-renal metabolism of creatinine, or treatment withmedications that affect renal tubular creatinine secretion. Performed By: #### C MP3, HEMOG ####[facility] [place], [place] GFR/1.73 sq M.predicted among blacks MDRD (S/P/Bld) [Vol rate/Area] mL/min/{1.73_m2} Normal >60 [facility] Comment on above: Performed By: #### C MP3, HEMOG ####[address] [place], [place] Protein [Mass/Vol] 5.9 g/dL Low 6.3-8.2 [facility] Comment on above: Performed By: #### C MP3, HEMOG ####[address] [place], [place] Urea nitrogen [Mass/Vol] 10 mg/dL Normal 9-20 [facility] Comment on above: Performed By: #### C MP3, HEMOG ####[address] [place], [place] Potassium [Moles/Vol] 4.6 mmol/L Normal 3.5-5.1 [facility] Comment on above: Performed By: #### C MP3, HEMOG ####[address] [place], [place] Sodium [Moles/Vol] 138 mmol/L Normal 135-145 [facility] Comment on above: Performed By: #### C MP3, HEMOG ####[address] [place], [place] Albumin [Mass/Vol] 3.3 g/dL Low 3.5-5.0 [facility] Comment on above: Performed By: #### C MP3, HEMOG ####[address] [place], [place] Chloride [Moles/Vol] 104 mmol/L Normal 98-107 [facility] Comment on above: Performed By: #### C MP3, HEMOG ####[address] [place], [place] Hemogramon 01-29-2021 Erythrocyte distribution width (RBC) [Ratio] 15.7 % High 11.5-14.5 [facility] Comment on above: Performed By: #### C MP3, HEMOG ####[address] [place], [place] Hematocrit (Bld) [Volume fraction] 28.1 % Low 35.0-47.0 [facility] Comment on above: Performed By: #### C MP3, HEMOG ####[address] [place], [place] Hemoglobin (Bld) [Mass/Vol] 9.1 g/dL Low 11.7-16.0 [facility] Comment on above: Performed By: #### C MP3, HEMOG ####[address] [place], [place] MCH (RBC) [Entitic mass] 29.2 pg Normal 26.0-34.0 [facility] Comment on above: Performed By: #### C MP3, HEMOG ####[address] [place] MCHC 32.2 % Normal 32.0-36.0 [facility] Comment on above: Performed By: #### C MP3, HEMOG ####[address] [place] MCV (RBC) [Entitic vol] 90.9 fL Normal 79.0-98.0 [facility] Comment on above: Performed By: #### C MP3, HEMOG ####[address] [place], [place] Platelet mean volume (Bld) [Entitic vol] 8.6 fL Normal 7.4-10.4 [facility] Comment on above: Performed By: #### C MP3, HEMOG ####[address] [place] Platelets (Bld) [#/Vol] 781 10*3/uL High 140-440 [facility] Comment on above: Performed By: #### C MP3, HEMOG ####[address] [place], [place] RBC (Bld) [#/Vol] 3.10 10*6/uL Low 3.80-5.20 [facility] Comment on above: Performed By: #### C MP3, HEMOG ####[address] [place] WBC (Bld) [#/Vol] 20.4 10*3/uL High 3.6-10.7 [facility] Comment on above: Performed By: #### C MP3, HEMOG ####[address] [place] Erythrocyte distribution width (RBC) [Ratio] 16.0 % High 11.5-14.5 [facility] Comment on above: Performed By: #### B MP3M, HEMOG ####[address] [place] Hematocrit (Bld) [Volume fraction] 34.5 % Low 35.0-47.0 [facility] Comment on above: Performed By: #### B MP3M, HEMOG ####[address] [place] Hemoglobin (Bld) [Mass/Vol] 10.8 g/dL Low 11.7-16.0 [facility] Comment on above: Performed By: #### B MP3M, HEMOG ####[facility] [place], [place] MCH (RBC) [Entitic mass] 28.5 pg Normal 26.0-34.0 [facility] Comment on above: Performed By: #### B MP3M, HEMOG ####[address] [place] MCHC 31.3 % Low 32.0-36.0 [facility] Comment on above: Performed By: #### B MP3M, HEMOG ####[address] [place] MCV (RBC) [Entitic vol] 91.2 fL Normal 79.0-98.0 [facility] Comment on above: Performed By: #### B MP3M, HEMOG ####[address] [place] Platelet mean volume (Bld) [Entitic vol] 8.4 fL Normal 7.4-10.4 [facility] Comment on above: Performed By: #### B NATALEE3Ward, HEMOG ####[address] [place] Platelets (Bld) [#/Vol] 1091 10*3/uL High 140-440 [facility] Comment on above: Performed By: #### B NATALEE3Ward, HEMOG ####[address] [place], [place] RBC (Bld) [#/Vol] 3.79 10*6/uL Low 3.80-5.20 [facility] Comment on above: Performed By: #### Jacek VILLANUEVA HEMOG ####[address] WBC (Bld) [#/Vol] 18.0 10*3/uL High 3.6-10.7 [facility] Comment on above: Performed By: #### Jacek ALBRIGHT3Ward, HEMOG ####[address] [place], [place] Op Noteon 01-29-2021 Op Note Normal [facility] Surgical Pathologyon 021 Surgical Pathology Normal [facility] TS GELon 01-29-2021 TS GEL ABO Group: A Rh, Gel: POS Antibody Screen Gel: NEG Normal [facility] Comment on above: Performed By: #### T SGL ####[facility]#### LRC ####[address] [address] Basic Metabolic Panelon 01-17 Anion gap [Moles/Vol] 11 mmol/L Normal -13 [facility] Comment on above: Performed By: #### B NATALEE3Ward, HEMOG ####[address] [place], [place] Calcium [Mass/Vol] 10.0 mg/dL Normal 8.4-10.4 [facility] Comment on above: Performed By: #### B NATALEE3Ward, HEMOG ####[address] [place], [place] CO2 [Moles/Vol] 28 mmol/L Normal 22-30 [facility] Comment on above: Performed By: #### B MP3M, HEMOG ####[facility] [place], [place] Glucose [Mass/Vol] 82 mg/dL Normal 70-100 [facility] Comment on above: Performed By: #### B MP3M, HEMOG ####[address] [place], [place] Urea nitrogen [Mass/Vol] 13 mg/dL Normal 9-20 [facility] Comment on above: Performed By: #### B MP3M, HEMOG ####[address] [place], [place] Creatinine [Mass/Vol] 0.55 mg/dL Normal 0.52-1.25 [facility] Comment on above: Performed By: #### B MP3M, HEMOG ####[address] [place] eGFR OTHER > 90.0 Normal >60 [facility] Comment on above: Result Comment: KDIG O guidelines provide the following GFR categories:Stage GFR(ml/min/1.73 m2) TermsG1 >=90 Normal or highG2 60-89 Mildly decreased*G3a 45-59 Mildly to moderately vnissglhtL3l 30-44 Moderately to severely decreasedG4 15-29 Severely decreasedG5 <15 Kidney failure*Relative to young adult level.In the absence of evidence of kidney damage, neither GFRcategory G1 nor G2 fulfill the criteria for CKD.The CKD-EPI equation is validated in individuals 18 yearsof age and older. Currently the best equation forestimating glomerular filtration rate (GFR) from serumcreatinine in children is the Bedside Yu equation.It is less accurate in patients with extremes of musclemass, restriction of dietary protein, ingestion of creatine,extra-renal metabolism of creatinine, or treatment withmedications that affect renal tubular creatinine secretion. Performed By: #### B MP3M, HEMOG ####[address] [place] [address] GFR/1.73 sq M.predicted among blacks MDRD (S/P/Bld) [Vol rate/Area] mL/min/{1.73_m2} Normal >60 [facility] Comment on above: Performed By: #### Jacek ALBRIGHT3Ward, HEMOG ####[facility] [employer] [id number] [place], [place] Chloride [Moles/Vol] 97 mmol/L Low 98-107 [facility] Comment on above: Performed By: #### B MP3M, HEMOG ####[address] [place], [place] Potassium [Moles/Vol] 4.9 mmol/L Normal 3.5-5.1 [facility] Comment on above: Result Comment: Slig htly hemolysed, interpret with caution. Performed By: #### B NATALEE3M, HEMOG ####[address] [place], [place] Sodium [Moles/Vol] 137 mmol/L Normal 135-145 [facility] Comment on above: Performed By: #### B MP3M, HEMOG ####[address] [place], [place] CR Chest Portableon 01-29-20 21 CR Chest Portable Normal [facility] CT 3D Reconstructionon 01-28 CT 3D Reconstruction Normal [facility] CT Maxillofacial w/o Contras ton 01-28-2021 CT Maxillofacial w/o Contrast Normal [facility] Hemogramon 01-28-2021 Erythrocyte distribution width (RBC) [Ratio] 16.1 % High 11.5-14.5 [facility] Comment on above: Performed By: #### Jacek MP3M, HEMOG ####[facility] [employer] [id number] [place], [place] Hematocrit (Bld) [Volume fraction] 35.3 % Normal 35.0-47.0 [facility] Comment on above: Performed By: #### Jacek MP3M, HEMOG ####[facility] [employer] [id number] [place], [place] Hemoglobin (Bld) [Mass/Vol] 10.9 g/dL Low 11.7-16.0 [facility] Comment on above: Performed By: #### B NATALEE3Ward, HEMOG ####[address] [place], [place] MCH (RBC) [Entitic mass] 28.0 pg Normal 26.0-34.0 [facility] Comment on above: Performed By: #### B MP3Ward, HEMOG ####[address] MCHC 30.8 % Low 32.0-36.0 [facility] Comment on above: Performed By: #### B NATALEE3Ward, HEMOG ####[address] [place], [place] MCV (RBC) [Entitic vol] 90.9 fL Normal 79.0-98.0 [facility] Comment on above: Performed By: #### Jacek ALBRIGHT3Ward, HEMOG ####[address] Platelet mean volume (Bld) [Entitic vol] 8.8 fL Normal 7.4-10.4 [facility] Comment on above: Performed By: #### Jacek ALBRIGHT3Ward, HEMOG ####[address] [place], [place] Platelets (Bld) [#/Vol] 996 10*3/uL High 140-440 [facility] Comment on above: Performed By: #### B MP3Ward, HEMOG ####[address] RBC (Bld) [#/Vol] 3.89 10*6/uL Normal 3.80-5.20 [facility] Comment on above: Performed By: #### B MP3Ward, HEMOG ####[address] WBC (Bld) [#/Vol] 15.6 10*3/uL High 3.6-10.7 [facility] Comment on above: Performed By: #### B MP3Ward, HEMOG ####[address] [place], [place] APTTon 01-27-2021 aPTT Coag (Bld) [Time] 20.8 s Normal 20.0-30.5 [facility] Comment on above: Result Comment: NOTE : The therapeutic time for Heparin anticoagulation,based on Xa activity inhibition, is an APTT of 46-80seconds. Performed By: #### A PTT ####[address] Basic Metabolic Panelon 01-17 Anion gap [Moles/Vol] 15 mmol/L High 3-13 [facility] Comment on above: Performed By: #### B MP3M ####[address] [place], [place] Calcium [Mass/Vol] 9.3 mg/dL Normal 8.4-10.4 [facility] Comment on above: Performed By: #### B MP3M ####[address] CO2 [Moles/Vol] 28 mmol/L Normal 22-30 [facility] Comment on above: Performed By: #### B MP3M ####[address] [place], [place] Creatinine [Mass/Vol] 0.56 mg/dL Normal 0.52-1.25 [facility] Comment on above: Performed By: #### B MP3M ####[address] eGFR OTHER > 90.0 Normal >60 [facility] Comment on above: Result Comment: KDIG O guidelines provide the following GFR categories:Stage GFR(ml/min/1.73 m2) TermsG1 >=90 Normal or highG2 60-89 Mildly decreased*G3a 45-59 Mildly to moderately hnfhrirelZ4u 30-44 Moderately to severely decreasedG4 15-29 Severely decreasedG5 <15 Kidney failure*Relative to young adult level.In the absence of evidence of kidney damage, neither GFRcategory G1 nor G2 fulfill the criteria for CKD.The CKD-EPI equation is validated in individuals 18 yearsof age and older. Currently the best equation forestimating glomerular filtration rate (GFR) from serumcreatinine in children is the Bedside Yu equation.It is less accurate in patients with extremes of musclemass, restriction of dietary protein, ingestion of creatine,extra-renal metabolism of creatinine, or treatment withmedications that affect renal tubular creatinine secretion. Performed By: #### B MP3M ####[address] [place], [place] GFR/1.73 sq M.predicted among blacks MDRD (S/P/Bld) [Vol rate/Area] mL/min/{1.73_m2} Normal >60 [facility] Comment on above: Performed By: #### B MP3M ####[address] [place], [place] Glucose [Mass/Vol] 89 mg/dL Normal 70-100 [facility] Comment on above: Performed By: #### B MP3M ####[address] [place], [place] Urea nitrogen [Mass/Vol] 10 mg/dL Normal 9-20 [facility] Comment on above: Performed By: #### B MP3M ####[address] [place], [place] Chloride [Moles/Vol] 95 mmol/L Low 98-107 [facility] Comment on above: Performed By: #### B MP3M ####[address] [place], [place] Potassium [Moles/Vol] 4.6 mmol/L Normal 3.5-5.1 [facility] Comment on above: Result Comment: Slig htly hemolysed, interpret with caution. Performed By: #### B MP3M ####[address] [place], [place] Sodium [Moles/Vol] 138 mmol/L Normal 135-145 [facility] Comment on above: Performed By: #### B MP3M ####[address] [place], [place] CR Forearm 2 Views Lefton CR Forearm 2 Views Left Normal [facility] CR Hand Complete 3+ Views Le fton 01-27-2021 CR Hand Complete 3+ Views Left Normal [facility] CR Knee 3 Views Bilateralon 01-27-2021 CR Knee 3 Views Bilateral Normal [facility] CR Pelvis Complete Minimum 3 Viewson 01-27-2021 CR Pelvis Complete Minimum 3 Views Normal [facility] CR Shoulder 2+ Views Lefton 01-27-2021 CR Shoulder 2+ Views Left Normal [facility] CR Tibia/Fibula 2 Views Righ ton 01-27-2021 CR Tibia/Fibula 2 Views Right Normal [facility] Hemogramon 01-27-2021 Erythrocyte distribution width (RBC) [Ratio] 16.1 % High 11.5-14.5 [facility] Comment on above: Performed By: #### H EMOG ####[address] [place], [place] Hematocrit (Bld) [Volume fraction] 37.0 % Normal 35.0-47.0 [facility] Comment on above: Performed By: #### H EMOG ####[address] [place] Hemoglobin (Bld) [Mass/Vol] 11.6 g/dL Low 11.7-16.0 [facility] Comment on above: Performed By: #### H EMOG ####[address] [place] MCH (RBC) [Entitic mass] 28.2 pg Normal 26.0-34.0 [facility] Comment on above: Performed By: #### H EMOG ####[address] [place] MCHC 31.5 % Low 32.0-36.0 [facility] Comment on above: Performed By: #### H EMOG ####[address] [place] MCV (RBC) [Entitic vol] 89.6 fL Normal 79.0-98.0 [facility] Comment on above: Performed By: #### H EMOG ####[address] [place], [place] Platelet mean volume (Bld) [Entitic vol] 8.7 fL Normal 7.4-10.4 [facility] Comment on above: Performed By: #### H EMOG ####[address] [place], [place] Platelets (Bld) [#/Vol] 1070 10*3/uL High 140-440 [facility] Comment on above: Performed By: #### H EMOG ####[address] [place], [place] RBC (Bld) [#/Vol] 4.13 10*6/uL Normal 3.80-5.20 [facility] Comment on above: Performed By: #### H EMOG ####[address] [place], [place] WBC (Bld) [#/Vol] 18.5 10*3/uL High 3.6-10.7 [facility] Comment on above: Performed By: #### H EMOG ####[address] [place], [place] STAIN GRAMon 01-27-2021 STAIN GRAM STAIN GRAM --> Statu s: F Many polymorphonuclear cells/lpf. Few gram positive cocci in clusters. Few gram positive cocci in clusters. Normal [facility] Comment on above: Performed By: #### S /GRM ####[address] [place], [place] #### CXAAN ####[address] [place] [id number] [place], [place] VL Venous Duplex US Lower Ex t Bilateralon 01-27-2021 VL Venous Duplex US Lower Ext Bilateral Normal [facility] CT Head or Brain w/o Contras ton 01-08-2021 CT Head or Brain w/o Contrast Normal [facility] CULTURE BLOODon 01-03-2021 Microscopic examination of blood, culture CULTURE BLOOD --> Status: F No growth at 5 days. Normal [facility] Comment on above: Performed By: #### C /BLD ####[address] [place], [place] CULT./ST. RESPIRATORYon 12-18 CULT./ST. RESPIRATORY Normal [facility] Comment on above: Performed By: #### S /GRM ####[address] [place], [place] #### CS/RE ####[address] [address] [place], [place] CULTURE BLOOD (Two)on 2020 Microscopic examination of blood, culture CULTURE BLOOD (Two) --> Status: F No growth at 5 days. Normal [facility] Comment on above: Performed By: #### C /BLT ####[address] Basic Metabolic Panelon 12-18 Calcium [Mass/Vol] 7.7 mg/dL Low 8.4-10.4 [facility] Comment on above: Performed By: #### H CURLY BMP3 ####[facility] [place], [place] Anion gap [Moles/Vol] 0 mmol/L Low - [facility] Comment on above: Performed By: #### H CURLY BMP3 ####[address] [place], [place] CO2 [Moles/Vol] 28 mmol/L Normal 22-30 [facility] Comment on above: Performed By: #### H CURLY BMP3 ####[address] [place], [place] Creatinine [Mass/Vol] 0.48 mg/dL Low 0.52-1.25 [facility] Comment on above: Performed By: #### H CURLY BMP3 ####[address] eGFR OTHER > 90.0 Normal >60 [facility] Comment on above: Result Comment: KDIG O guidelines provide the following GFR categories:Stage GFR(ml/min/1.73 m2) TermsG1 >=90 Normal or highG2 60-89 Mildly decreased*G3a 45-59 Mildly to moderately oaulmeyavQ5d 30-44 Moderately to severely decreasedG4 15-29 Severely decreasedG5 <15 Kidney failure*Relative to young adult level.In the absence of evidence of kidney damage, neither GFRcategory G1 nor G2 fulfill the criteria for CKD.The CKD-EPI equation is validated in individuals 18 yearsof age and older. Currently the best equation forestimating glomerular filtration rate (GFR) from serumcreatinine in children is the Bedside Yu equation.It is less accurate in patients with extremes of musclemass, restriction of dietary protein, ingestion of creatine,extra-renal metabolism of creatinine, or treatment withmedications that affect renal tubular creatinine secretion. Performed By: #### H ZACH RAWLS3 ####[facility] [address] [place], [place] GFR/1.73 sq M.predicted among blacks MDRD (S/P/Bld) [Vol rate/Area] mL/min/{1.73_m2} Normal >60 [facility] Comment on above: Performed By: #### H ZACH RAWLS3 ####[facility] [employer] [id number] [place], [place] Glucose [Mass/Vol] 102 mg/dL High 70-100 [facility] Comment on above: Performed By: #### H CURLY BMP3 ####[facility] [address] [place], [place] Urea nitrogen [Mass/Vol] 16 mg/dL Normal 9-20 [facility] Comment on above: Performed By: #### H CURLY BMP3 ####[employer] [address] [place], [place] Chloride [Moles/Vol] 113 mmol/L High 98-107 [facility] Comment on above: Performed By: #### H ZACH RAWLS3 ####[facility] [employer] [id number] [place], [place] Potassium [Moles/Vol] 3.5 mmol/L Normal 3.5-5.1 [facility] Comment on above: Performed By: #### H ELMER RAWLS ####[facility] [place], [place] Sodium [Moles/Vol] 141 mmol/L Normal 135-145 [facility] Comment on above: Performed By: #### H ZACH RAWLS3 ####[facility] [place], [place] Anion gap [Moles/Vol] 0 mmol/L Low 3 - 13 mmol/L [facility] Calcium [Mass/Vol] 7.7 mg/dL Low 8.4 - 10. 4 mg/dL [facility] Chloride [Moles/Vol] 113 mmol/L High 98 - 10 7 mmol/L [facility] CO2 [Moles/Vol] 28 mmol/L 22 - 30 mmol/L [facility] Creatinine [Mass/Vol] 0.48 mg/dL Low 0.52 - 1.25 mg/dL [facility] EGFR IF NonAfrican Belizean >90.0 >60 mL/min [facility] GFR/1.73 sq M.predicted among blacks MDRD (S/P/Bld) [Vol rate/Area] mL/min/{1.73_m2} >60 mL/min [facility] Glucose [Mass/Vol] 102 mg/dL High 70 - 100 mg/dL [facility] Interpretation and review of laboratory results Abnormal [facility] Potassium [Moles/Vol] 3.5 mmol/L 3.5 - 5.1 mmol/L [facility] Sodium [Moles/Vol] 141 mmol/L 135 - 145 mmol/L [facility] Urea nitrogen (BldV) [Mass/Vol] 16 mg/dL 9 - 20 mg/dL [facility] CBC WITH AUTO DIFFERENTIALon 12-29-2020 Absolute Baso # 0.2 10*3/uL 0.0 - 0.2 10*3/uL [facility] Absolute Neut # 16.9 10*3/uL High 1.8 - 7.0 10*3/uL [facility] Basophils/100 WBC (Bld) 0.9 % 0.0 - 2.0 % [facility] Eosinophils (Bld) [#/Vol] 0.2 10*3/uL 0.0 - 0.5 10*3/uL [facility] Eosinophils/100 WBC (Bld) 1.0 % 1.0 - 6.0 % [facility] Granulocytes/100 WBC (Bld) 84.6 % High 40.0 - 80.0 % [facility] Hematocrit (Bld) [Volume fraction] 25.4 % Low 35.0 - 47.0 % [facility] Hemoglobin.gastrointe stinal spec 1 Ql (Stl) 8.1 g/dL Low 11.7 - 16.0 g/dL [facility] Interpretation and review of laboratory results Abnormal [facility] Lymphocytes (Bld) [#/Vol] 2.0 10*3/uL 1.0 - 4.3 10*3/uL [facility] Lymphocytes/100 WBC (Bld) 9.8 % Low 20.0 - 40.0 % [facility] MCH (RBC) [Entitic mass] 29.9 pg 26.0 - 34.0 pg [facility] MCHC (RBC) [Mass/Vol] 31.9 % Low 32.0 - 36.0 % [facility] MCV (RBC) [Entitic vol] 93.5 fL 79.0 - 98.0 fL [facility] Monocytes (Bld) [#/Vol] 0.7 10*3/uL 0.0 - 0.8 10*3/uL [facility] Monocytes/100 WBC (Bld) 3.7 % 2.0 - 10.0 % [facility] Platelet distribution width (Bld) [Ratio] 16.0 % High 11.5 - 14.5 % [facility] Platelet mean volume (Bld) [Entitic vol] 9.0 fL 7.4 - 10.4 fL [facility] Platelets (Bld) [#/Vol] 642 10*3/uL High 140 - 440 10*3/uL [facility] RBC (Bld) [#/Vol] 2.72 10*6/uL Low 3.80 - 5.2 0 10*6/uL [facility] WBC (Bld) [#/Vol] 19.5 10*3/uL High 3.6 - 10.7 10*3/uL [facility] CR Chest Portableon 12-30-19 CR Chest Portable Normal [facility] Hemogram w/ Autodiffon 12-29 Abs Baso Cnt 0.2 10*3/uL Normal 0.0-0.2 [facility] Comment on above: Performed By: #### H CURLY BMP3 ####[address] [address] Abs Neutrophile Cnt 16.9 10*3/uL High 1.8-7.0 [facility] Comment on above: Performed By: #### H CURLY BMP3 ####[address] [address] Basophils/100 WBC (Bld) 0.9 % Normal 0.0-2.0 [facility] Comment on above: Performed By: #### H CURLY BMP3 ####[address] [address] Eosinophils (Bld) [#/Vol] 0.2 10*3/uL Normal 0.0-0.5 [facility] Comment on above: Performed By: #### H CURLY BMP3 ####[address] [address] Eosinophils/100 WBC (Bld) 1.0 % Normal 1.0-6.0 [facility] Comment on above: Performed By: #### H CURLY BMP3 ####[address] [address] Granulocytes/100 WBC (Bld) 84.6 % High 40.0-80.0 [facility] Comment on above: Performed By: #### H CURLY BMP3 ####[address] [address] Lymphocytes (Bld) [#/Vol] 2.0 10*3/uL Normal 1.0-4.3 [facility] Comment on above: Performed By: #### H CURLY, BMP3 ####[address] [address] Lymphocytes/100 WBC (Bld) 9.8 % Low 20.0-40.0 [facility] Comment on above: Performed By: #### H CURLY, BMP3 ####[address] [place], [place] Monocytes (Bld) [#/Vol] 0.7 10*3/uL Normal 0.0-0.8 [facility] Comment on above: Performed By: #### H EMDF, BMP3 ####[address] [place], [place] Monocytes/100 WBC (Bld) 3.7 % Normal 2.0-10.0 [facility] Comment on above: Performed By: #### H EMDF BMP3 ####[address] Erythrocyte distribution width (RBC) [Ratio] 16.0 % High 11.5-14.5 [facility] Comment on above: Performed By: #### H EMDF BMP3 ####[address] Hematocrit (Bld) [Volume fraction] 25.4 % Low 35.0-47.0 [facility] Comment on above: Performed By: #### H CURLY BMP3 ####[address] Hemoglobin (Bld) [Mass/Vol] 8.1 g/dL Low 11.7-16.0 [facility] Comment on above: Performed By: #### H EMDF, BMP3 ####[address] MCH (RBC) [Entitic mass] 29.9 pg Normal 26.0-34.0 [facility] Comment on above: Performed By: #### H EMDF, BMP3 ####[address] MCHC 31.9 % Low 32.0-36.0 [facility] Comment on above: Performed By: #### H EMDF, BMP3 ####[address] MCV (RBC) [Entitic vol] 93.5 fL Normal 79.0-98.0 [facility] Comment on above: Performed By: #### H EMDF BMP3 ####[address] [place], [place] Platelet mean volume (Bld) [Entitic vol] 9.0 fL Normal 7.4-10.4 [facility] Comment on above: Performed By: #### H EMDMiguel Ángel BMP3 ####[address] [place], [place] Platelets (Bld) [#/Vol] 642 10*3/uL High 140-440 [facility] Comment on above: Performed By: #### H CURLY BMP3 ####[address] [place], [place] RBC (Bld) [#/Vol] 2.72 10*6/uL Low 3.80-5.20 [facility] Comment on above: Performed By: #### H CURLY BMP3 ####[address] [place] WBC (Bld) [#/Vol] 19.5 10*3/uL High 3.6-10.7 [facility] Comment on above: Performed By: #### H CURLY BMP3 ####[address] [place], [place] XR CHEST PORTABLEon 12-30-19 [facility] RAD [facility] Work Phone: [phone] [facility] Work Phone: Radiology Study observation (narrative) [facility] Work Phone: [phone] Basic Metabolic Panelon 12-18 Calcium [Mass/Vol] 8.0 mg/dL Low 8.4-10.4 [facility] Comment on above: Performed By: #### M G3, BMP3, PHOS3, PCAL ####[address] [place], [place] Anion gap [Moles/Vol] 7 mmol/L Normal 3-13 [facility] Comment on above: Performed By: #### M G3, BMP3, PHOS3, PCAL ####[facility] [employer] [id number] [place] CO2 [Moles/Vol] 22 mmol/L Normal 22-30 [facility] Comment on above: Performed By: #### M G3, BMP3, PHOS3, PCAL ####[facility] [place], [place] Creatinine [Mass/Vol] 0.65 mg/dL Normal 0.52-1.25 [facility] Comment on above: Performed By: #### M G3, BMP3, PHOS3, PCAL ####[address] [place], [place] eGFR OTHER > 90.0 Normal >60 [facility] Comment on above: Result Comment: KDIG O guidelines provide the following GFR categories:Stage GFR(ml/min/1.73 m2) TermsG1 >=90 Normal or highG2 60-89 Mildly decreased*G3a 45-59 Mildly to moderately baaknovxfI2v 30-44 Moderately to severely decreasedG4 15-29 Severely decreasedG5 <15 Kidney failure*Relative to young adult level.In the absence of evidence of kidney damage, neither GFRcategory G1 nor G2 fulfill the criteria for CKD.The CKD-EPI equation is validated in individuals 18 yearsof age and older. Currently the best equation forestimating glomerular filtration rate (GFR) from serumcreatinine in children is the Bedside Yu equation.It is less accurate in patients with extremes of musclemass, restriction of dietary protein, ingestion of creatine,extra-renal metabolism of creatinine, or treatment withmedications that affect renal tubular creatinine secretion. Performed By: #### M G3, BMP3, PHOS3, PCAL ####[facility] [employer] [id number] [place], [place] GFR/1.73 sq M.predicted among blacks MDRD (S/P/Bld) [Vol rate/Area] mL/min/{1.73_m2} Normal >60 [facility] Comment on above: Performed By: #### M G3, BMP3, PHOS3, PCAL ####[facility] [employer] [id number] [place] [address] Glucose [Mass/Vol] 135 mg/dL High 70-100 [facility] Comment on above: Performed By: #### M G3, BMP3, PHOS3, PCAL ####[address] [place] [address] Urea nitrogen [Mass/Vol] 18 mg/dL Normal 9-20 [facility] Comment on above: Performed By: #### M G3, BMP3, PHOS3, PCAL ####[address] [place] [address] Chloride [Moles/Vol] 112 mmol/L High 98-107 [facility] Comment on above: Performed By: #### M G3, BMP3, PHOS3, PCAL ####[address] [place] Potassium [Moles/Vol] 3.2 mmol/L Low 3.5-5.1 [facility] Comment on above: Performed By: #### Ward G3, BMP3, PHOS3, PCAL ####[address] [place] Sodium [Moles/Vol] 140 mmol/L Normal 135-145 [facility] Comment on above: Performed By: #### M G3, BMP3, PHOS3, PCAL ####[address] [place] Anion gap [Moles/Vol] 7 mmol/L 3 - 13 mmol/L [facility] Calcium [Mass/Vol] 8.0 mg/dL Low 8.4 - 10. 4 mg/dL [facility] Chloride [Moles/Vol] 112 mmol/L High 98 - 10 7 mmol/L [facility] CO2 [Moles/Vol] 22 mmol/L 22 - 30 mmol/L [facility] Creatinine [Mass/Vol] 0.65 mg/dL 0.52 - 1.25 mg/dL [facility] EGFR IF NonAfrican Belizean >90.0 >60 mL/min [facility] GFR/1.73 sq M.predicted among blacks MDRD (S/P/Bld) [Vol rate/Area] mL/min/{1.73_m2} >60 mL/min [facility] Glucose [Mass/Vol] 135 mg/dL High 70 - 100 mg/dL [facility] Potassium [Moles/Vol] 3.2 mmol/L Low 3.5 - 5.1 mmol/L [facility] Sodium [Moles/Vol] 140 mmol/L 135 - 145 mmol/L [facility] Urea nitrogen (BldV) [Mass/Vol] 18 mg/dL 9 - 20 mg/dL [facility] CBC WITH AUTO DIFFERENTIALon 12-28-2020 Absolute Baso # 0.1 10*3/uL 0.0 - 0.2 10*3/uL [facility] Absolute Neut # 19.1 10*3/uL High 1.8 - 7.0 10*3/uL [facility] Basophils/100 WBC (Bld) 0.3 % 0.0 - 2.0 % [facility] Eosinophils (Bld) [#/Vol] 0.1 10*3/uL 0.0 - 0.5 10*3/uL [facility] Eosinophils/100 WBC (Bld) 0.4 % Low 1.0 - 6.0 % [facility] Granulocytes/100 WBC (Bld) 87.8 % High 40.0 - 80.0 % [facility] Hematocrit (Bld) [Volume fraction] 27.1 % Low 35.0 - 47.0 % [facility] Hemoglobin.gastrointe stinal spec 1 Ql (Stl) 8.5 g/dL Low 11.7 - 16.0 g/dL [facility] Interpretation and review of laboratory results Abnormal [facility] Lymphocytes (Bld) [#/Vol] 1.8 10*3/uL 1.0 - 4.3 10*3/uL [facility] Lymphocytes/100 WBC (Bld) 8.4 % Low 20.0 - 40.0 % [facility] MCH (RBC) [Entitic mass] 29.5 pg 26.0 - 34.0 pg [facility] MCHC (RBC) [Mass/Vol] 31.4 % Low 32.0 - 36.0 % [facility] MCV (RBC) [Entitic vol] 93.8 fL 79.0 - 98.0 fL [facility] Monocytes (Bld) [#/Vol] 0.7 10*3/uL 0.0 - 0.8 10*3/uL [facility] Monocytes/100 WBC (Bld) 3.1 % 2.0 - 10.0 % [facility] Platelet distribution width (Bld) [Ratio] 15.6 % High 11.5 - 14.5 % [facility] Platelet mean volume (Bld) [Entitic vol] 9.3 fL 7.4 - 10.4 fL [facility] Platelets (Bld) [#/Vol] 646 10*3/uL High 140 - 440 10*3/uL [facility] RBC (Bld) [#/Vol] 2.89 10*6/uL Low 3.80 - 5.2 0 10*6/uL [facility] WBC (Bld) [#/Vol] 21.7 10*3/uL High 3.6 - 10.7 10*3/uL [facility] CR Chest Portableon 12-29-19 21 CR Chest Portable Normal [facility] ealt System CT Abdomen and Pelvis W cont rast Fritz 12-28-2020 [facility] RAD [facility] Work Phone: CT Abdomen and Pelvis W cont rast IVOrdered By: Kraig Middleton on 12-28-2020 [facility] Work Phone: CT Abdomen/Pelvis w/ Contras ton 12-28-2020 CT Abdomen/Pelvis w/ Contrast Normal [facility] Gram Stainon 12-28-2020 Gram Stain Result [facility] Hemogram w/ Autodiffon 12-28 Abs Baso Cnt 0.1 10*3/uL Normal 0.0-0.2 [facility] Comment on above: Performed By: #### H EMDF ####[address] [place], [place] Abs Neutrophile Cnt 19.1 10*3/uL High 1.8-7.0 [facility] Comment on above: Performed By: #### H EMDF ####[address] [place], [place] Basophils/100 WBC (Bld) 0.3 % Normal 0.0-2.0 [facility] Comment on above: Performed By: #### H EMDF ####[address] [place], [place] Eosinophils (Bld) [#/Vol] 0.1 10*3/uL Normal 0.0-0.5 [facility] Comment on above: Performed By: #### H EMDF ####[address] Eosinophils/100 WBC (Bld) 0.4 % Low 1.0-6.0 [facility] Comment on above: Performed By: #### H EMDF ####[address] Erythrocyte distribution width (RBC) [Ratio] 15.6 % High 11.5-14.5 [facility] Comment on above: Performed By: #### H EMDF ####[address] Granulocytes/100 WBC (Bld) 87.8 % High 40.0-80.0 [facility] Comment on above: Performed By: #### H EMDF ####[address] Hematocrit (Bld) [Volume fraction] 27.1 % Low 35.0-47.0 [facility] Comment on above: Performed By: #### H EMDF ####[address] Hemoglobin (Bld) [Mass/Vol] 8.5 g/dL Low 11.7-16.0 [facility] Comment on above: Performed By: #### H EMDF ####[address] Lymphocytes (Bld) [#/Vol] 1.8 10*3/uL Normal 1.0-4.3 [facility] Comment on above: Performed By: #### H EMDF ####[address] Lymphocytes/100 WBC (Bld) 8.4 % Low 20.0-40.0 [facility] Comment on above: Performed By: #### H EMDF ####[address] MCH (RBC) [Entitic mass] 29.5 pg Normal 26.0-34.0 [facility] Comment on above: Performed By: #### H EMDF ####[address] MCHC 31.4 % Low 32.0-36.0 [facility] Comment on above: Performed By: #### H EMDF ####[address] MCV (RBC) [Entitic vol] 93.8 fL Normal 79.0-98.0 [facility] Comment on above: Performed By: #### H EMDF ####[address] Monocytes (Bld) [#/Vol] 0.7 10*3/uL Normal 0.0-0.8 [facility] Comment on above: Performed By: #### H EMDF ####[address] Monocytes/100 WBC (Bld) 3.1 % Normal 2.0-10.0 [facility] Comment on above: Performed By: #### H EMDF ####[address] Platelet mean volume (Bld) [Entitic vol] 9.3 fL Normal 7.4-10.4 [facility] Comment on above: Performed By: #### H EMDF ####[address] Platelets (Bld) [#/Vol] 646 10*3/uL High 140-440 [facility] Comment on above: Performed By: #### H EMDF ####[address] RBC (Bld) [#/Vol] 2.89 10*6/uL Low 3.80-5.20 [facility] Comment on above: Performed By: #### H EMDF ####[address] [address] WBC (Bld) [#/Vol] 21.7 10*3/uL High 3.6-10.7 [facility] Comment on above: Performed By: #### H EMDF ####[address] [place] [address] Magnesiumon 12-28-2020 Magnesium [Mass/Vol] 2.1 mg/dL Normal 1.6-2.3 [facility] Comment on above: Performed By: #### M G3, BMP3, PHOS3, PCAL ####[address] [place], [place] Magnesium [Mass/Vol] 2.1 mg/dL 1.6 - 2 .3 mg/dL [facility] No Panel Informationon 12-28 Radiology Study observation (narrative) [facility] Work Phone: Interpretation and review of laboratory results Abnormal [facility] Op Noteon 12-28-2020 Op Note Normal [facility] Phosphoruson 12-28-2020 Phosphate [Mass/Vol] 2.4 mg/dL Low 2.5-4.5 [facility] Comment on above: Performed By: #### M G3, BMP3, PHOS3, PCAL ####[address] [place], [place] Phosphate [Mass/Vol] 2.4 mg/dL Low 2.5 - 4 .5 mg/dL [facility] Procalcitoninon 12-28-2020 Procalcitonin 0.12 ng/mL High 0.00-0.09 [facility] Comment on above: Performed By: #### M G3, BMP3, PHOS3, PCAL ####[address] [place], [place] Interpretation See Below [facility] Interpretation and review of laboratory results Abnormal [facility] Procalcitonin 0.12 ng/mL High 0.00 - 0.09 ng/mL [facility] STAIN GRAMon 12-28-2020 STAIN GRAM STAIN GRAM --> Statu s: F Many polymorphonuclear cells/lpf. No organisms seen. No organisms seen. Normal [facility] Comment on above: Performed By: #### S /GRM ####[facility] [address] [place], [place] #### CS/RE ####[facility] [place] [address] [address] [place], [place] [id number] VL LOWER EXTREMITY BILATERAL VENOUS DUPLEXon 12-28-2020 [facility] CARDIOLOGY [facility] Work Phone: [facility] Work Phone: VL Venous Duplex US Lower Ex t Bilateralon 12-28-2020 VL Venous Duplex US Lower Ext Bilateral Normal [facility] XR CHEST PORTABLEon 12-29-19 21 [facility] RAD [facility] Work Phone: XR CHEST PORTABLEOrdered By: Clau Mares on 12-28-2020 [facility] Work Phone: Basic Metabolic Panelon 12-18 Calcium [Mass/Vol] 8.2 mg/dL Low 8.4-10.4 [facility] Comment on above: Performed By: #### M DIFF, PHOS3, HEMDF, BMP3 ####[address] [place], [place] Anion gap [Moles/Vol] 4 mmol/L Normal 3-13 [facility] Comment on above: Performed By: #### M DIFF, PHOS3, HEMDF, BMP3 ####[address] [place], [place] CO2 [Moles/Vol] 25 mmol/L Normal -30 [facility] Comment on above: Performed By: #### M DIFF, PHOS3, HEMDF, BMP3 ####[facility] [place], [place] Creatinine [Mass/Vol] 0.55 mg/dL Normal 0.52-1.25 [facility] Comment on above: Performed By: #### M DIFF, PHOS3, HEMDF, BMP3 ####[address] [place], [place] eGFR OTHER > 90.0 Normal >60 [facility] Comment on above: Result Comment: KDIG O guidelines provide the following GFR categories:Stage GFR(ml/min/1.73 m2) TermsG1 >=90 Normal or highG2 60-89 Mildly decreased*G3a 45-59 Mildly to moderately [id number] 30-44 Moderately to severely decreasedG4 15-29 Severely decreasedG5 <15 Kidney failure*Relative to young adult level.In the absence of evidence of kidney damage, neither GFRcategory G1 nor G2 fulfill the criteria for CKD.The CKD-EPI equation is validated in individuals 18 yearsof age and older. Currently the best equation forestimating glomerular filtration rate (GFR) from serumcreatinine in children is the Bedside Yu equation.It is less accurate in patients with extremes of musclemass, restriction of dietary protein, ingestion of creatine,extra-renal metabolism of creatinine, or treatment withmedications that affect renal tubular creatinine secretion. Performed By: #### M DIFF, PHOS3, HEMDF, BMP3 ####[facility] [address] [place] [address] GFR/1.73 sq M.predicted among blacks MDRD (S/P/Bld) [Vol rate/Area] mL/min/{1.73_m2} Normal >60 [facility] Comment on above: Performed By: #### M DIFF, PHOS3, HEMDF, BMP3 ####[employer] [place] [address] Glucose [Mass/Vol] 104 mg/dL High 70-100 [facility] Comment on above: Performed By: #### M DIFF, PHOS3, HEMDF, BMP3 ####[employer] [place] [address] Urea nitrogen [Mass/Vol] 16 mg/dL Normal 9-20 [facility] Comment on above: Performed By: #### M DIFF, PHOS3, HEMDF, BMP3 ####[employer] [place] [address] Chloride [Moles/Vol] 114 mmol/L High 98-107 [facility] Comment on above: Performed By: #### M DIFF, PHOS3, HEMDF, BMP3 ####[facility] [place] [address] Potassium [Moles/Vol] 3.3 mmol/L Low 3.5-5.1 [facility] Comment on above: Performed By: #### M DIFF, PHOS3, HEMDF, BMP3 ####[facility] [place] [address] Sodium [Moles/Vol] 143 mmol/L Normal 135-145 [facility] Comment on above: Performed By: #### M DIFF, PHOS3, HEMDF, BMP3 ####[facility] [place] [address] Anion gap [Moles/Vol] 4 mmol/L 3 - 13 mmol/L [facility] Calcium [Mass/Vol] 8.2 mg/dL Low 8.4 - 10. 4 mg/dL [facility] Chloride [Moles/Vol] 114 mmol/L High 98 - 10 7 mmol/L [facility] CO2 [Moles/Vol] 25 mmol/L 22 - 30 mmol/L [facility] Creatinine [Mass/Vol] 0.55 mg/dL 0.52 - 1.25 mg/dL [facility] EGFR IF NonAfrican Belizean >90.0 >60 mL/min [facility] GFR/1.73 sq M.predicted among blacks MDRD (S/P/Bld) [Vol rate/Area] mL/min/{1.73_m2} >60 mL/min [facility] Glucose [Mass/Vol] 104 mg/dL High 70 - 100 mg/dL [facility] Interpretation and review of laboratory results Abnormal [facility] Potassium [Moles/Vol] 3.3 mmol/L Low 3.5 - 5.1 mmol/L [facility] Sodium [Moles/Vol] 143 mmol/L 135 - 145 mmol/L [facility] Urea nitrogen (BldV) [Mass/Vol] 16 mg/dL 9 - 20 mg/dL [facility] CBC WITH AUTO DIFFERENTIALon 12-27-2020 Hematocrit (Bld) [Volume fraction] 26.0 % Low 35.0 - 47.0 % [facility] Hemoglobin.gastrointe stinal spec 1 Ql (Stl) 8.4 g/dL Low 11.7 - 16.0 g/dL [facility] Interpretation and review of laboratory results Abnormal [facility] MCH (RBC) [Entitic mass] 29.9 pg 26.0 - 34.0 pg [facility] MCHC (RBC) [Mass/Vol] 32.2 % 32.0 - 36.0 % [facility] MCV (RBC) [Entitic vol] 92.9 fL 79.0 - 98.0 fL [facility] Platelet distribution width (Bld) [Ratio] 15.1 % High 11.5 - 14.5 % [facility] Platelet mean volume (Bld) [Entitic vol] 9.3 fL 7.4 - 10.4 fL [facility] Platelets (Bld) [#/Vol] 543 10*3/uL High 140 - 440 10*3/uL [facility] RBC (Bld) [#/Vol] 2.80 10*6/uL Low 3.80 - 5.2 0 10*6/uL [facility] WBC (Bld) [#/Vol] 19.2 10*3/uL High 3.6 - 10.7 10*3/uL [facility] CR Chest Portableon 12-28-19 21 CR Chest Portable Normal [facility] CULT./ST. RESPIRATORYon 12-18 CULT./ST. RESPIRATORY Normal [facility] Comment on above: Performed By: #### C S/RE ####[address] [address] [id number]#### S/GRM ####[address] [address] Culture, Bloodon 12-27-2020 Blood Culture, Routine Staphylococcus epidermidis Abnormal [facility] Interpretation and review of laboratory results Abnormal [facility] Culture, Respiratoryon 12-27 Interpretation and review of laboratory results Abnormal [facility] Respiratory Culture Klebsiella oxytoca Abnormal [facility] Respiratory Culture Many [facility] Hemogram w/ Autodiffon 12-27 Erythrocyte distribution width (RBC) [Ratio] 15.1 % High 11.5-14.5 [facility] Comment on above: Performed By: #### M DIFF, PHOS3, HEMDF, BMP3 ####[address] [place], [place] Hematocrit (Bld) [Volume fraction] 26.0 % Low 35.0-47.0 [facility] Comment on above: Performed By: #### M DIFF, PHOS3, HEMDF, BMP3 ####[address] [place], [place] Hemoglobin (Bld) [Mass/Vol] 8.4 g/dL Low 11.7-16.0 [facility] Comment on above: Performed By: #### M DIFF, PHOS3, HEMDF, BMP3 ####[address] [place], [place] MCH (RBC) [Entitic mass] 29.9 pg Normal 26.0-34.0 [facility] Comment on above: Performed By: #### M DIFF, PHOS3, HEMDF, BMP3 ####[address] [place] MCHC 32.2 % Normal 32.0-36.0 [facility] Comment on above: Performed By: #### M DIFF, PHOS3, HEMDF, BMP3 ####[address] [place], [place] MCV (RBC) [Entitic vol] 92.9 fL Normal 79.0-98.0 [facility] Comment on above: Performed By: #### M DIFF, PHOS3, HEMDF, BMP3 ####[address] [place], [place] Platelet mean volume (Bld) [Entitic vol] 9.3 fL Normal 7.4-10.4 [facility] Comment on above: Performed By: #### M DIFF, PHOS3, HEMDF, BMP3 ####[address] [place], [place] Platelets (Bld) [#/Vol] 543 10*3/uL High 140-440 [facility] Comment on above: Performed By: #### M DIFF, PHOS3, HEMDF, BMP3 ####[address] RBC (Bld) [#/Vol] 2.80 10*6/uL Low 3.80-5.20 [facility] Comment on above: Performed By: #### M DIFF, PHOS3, HEMDF, BMP3 ####[address] WBC (Bld) [#/Vol] 19.2 10*3/uL High 3.6-10.7 [facility] Comment on above: Performed By: #### M DIFF, PHOS3, HEMDF, BMP3 ####[address] Manual Diffon 12-27-2020 Abs Baso Cnt 0.0 10*3/uL Normal 0.0-0.2 [facility] Comment on above: Performed By: #### M DIFF, PHOS3, HEMDF, BMP3 ####[address] Abs Eosin Cnt 0.0 10*3/uL Normal 0.0-0.5 [facility] Comment on above: Performed By: #### M DIFF, PHOS3, HEMDF, BMP3 ####[address] Abs Lymph Cnt 1.7 10*3/uL Normal 1.1-4.5 [facility] Comment on above: Performed By: #### M DIFF, PHOS3, HEMDF, BMP3 ####[address] Abs Monocyte Cnt 0.4 10*3/uL Normal 0.2-1.1 [facility] Comment on above: Performed By: #### M DIFF, PHOS3, HEMDF, BMP3 ####[address] Abs Neutrophile Cnt 17.1 10*3/uL High 2.2-8.2 [facility] Comment on above: Performed By: #### M DIFF, PHOS3, HEMDF, BMP3 ####[address] [place] Anisocytosis Slight Normal [facility] Comment on above: Performed By: #### M DIFF, PHOS3, HEMDF, BMP3 ####[address] [place], [place] Bands 2 % Normal 0-3 [facility] Comment on above: Performed By: #### M DIFF, PHOS3, HEMDF, BMP3 ####[address] [place], [place] Basophils 0 % Normal 0-2 [facility] Comment on above: Performed By: #### M DIFF, PHOS3, HEMDF, BMP3 ####[address] Cells counted 100 Normal [facility] Comment on above: Performed By: #### M DIFF, PHOS3, HEMDF, BMP3 ####[address] [place], [place] Eosinophils 0 % Low 1-6 [facility] Comment on above: Performed By: #### M DIFF, PHOS3, HEMDF, BMP3 ####[address] Lymphocytes 9 % Low 20-40 [facility] Comment on above: Performed By: #### M DIFF, PHOS3, HEMDF, BMP3 ####[address] [place], [place] Macrocytosis Slight Normal [facility] Comment on above: Performed By: #### M DIFF, PHOS3, HEMDF, BMP3 ####[facility] [id number] [place], [place] Microcytosis Slight Normal [facility] Comment on above: Performed By: #### M DIFF, PHOS3, HEMDF, BMP3 ####[address] [place], [place] Monocytes 2 % Normal 2-10 [facility] Comment on above: Performed By: #### M DIFF, PHOS3, HEMDF, BMP3 ####[address] [place], [place] NRBC 1 /100{WBCs} High -1-0 [facility] Comment on above: Result Comment: Newb orn (<60 days) 1-10Adult <1 Performed By: #### M DIFF, PHOS3, HEMDF, BMP3 ####[address] Ovalocytes Slight Normal [facility] Comment on above: Performed By: #### M DIFF, PHOS3, HEMDF, BMP3 ####[facility] [employer] [address] Poikilocytosis Slight Normal [facility] Comment on above: Performed By: #### M DIFF, PHOS3, HEMDF, BMP3 ####[address] Polychromasia Slight Normal [facility] Comment on above: Performed By: #### M DIFF, PHOS3, HEMDF, BMP3 ####[facility] [employer] [address] RBC Morphology ABNORMAL Normal [facility] Comment on above: Performed By: #### M DIFF, PHOS3, HEMDF, BMP3 ####[facility] [employer] [address] Seg Neutrophils 87 % High 40-80 [facility] Comment on above: Performed By: #### M DIFF, PHOS3, HEMDF, BMP3 ####[facility] [employer] [address] Toxic Granulation Slight Normal [facility] Comment on above: Performed By: #### M DIFF, PHOS3, HEMDF, BMP3 ####[facility] [employer] [address] Manual Differentialon 2020 Absolute Baso # 0.0 10*3/uL 0.0 - 0.2 10*3/uL [facility] Absolute Eos # 0.0 10*3/uL 0.0 - 0.5 10*3/uL [facility] Absolute Lymph # 1.7 10*3/uL 1.1 - 4.5 10*3/uL [facility] Absolute [place] # 0.4 10*3/uL 0.2 - 1.1 10*3/uL [facility] Absolute Neut # 17.1 10*3/uL High 2.2 - 8.2 10*3/uL [facility] Anisocytosis Slight [facility] Bands 2 % 0 - 3 % [facility] Basophils/100 WBC (Bld) 0 % 0 - 2 % [facility] Eosinophils/100 WBC (Bld) 0 % Low 1 - 6 % [facility] Interpretation and review of laboratory results Abnormal [facility] Lymphocytes/100 WBC (Bld) 9 % Low 20 - 40 % [facility] Macrocytosis Slight [facility] Microcytosis Slight [facility] Monocytes/100 WBC (Bld) 2 % 2 - 10 % [facility] nRBC 1 /100{WBCs} High -1 - 0 /100{WBCs} [facility] Ovalocytes Slight [facility] Poikilocytes Slight [facility] Polychromasia Slight [facility] RBC (Bld) [#/Vol] ABNORMAL [facility] Seg Neutrophils 87 % High 40 - 80 % [facility] TOTAL CELLS COUNTED 100 [facility] Toxic Granulation Slight [facility] No Panel Informationon 12-27 Blood Culture, Routine [facility] Respiratory Culture Escherichia coli Abnormal [facility] Respiratory Culture [facility] Phosphoruson 12-27-2020 Phosphate [Mass/Vol] 3.1 mg/dL Normal 2.5-4.5 [facility] Comment on above: Performed By: #### M DIFF, PHOS3, HEMDF, BMP3 ####[address] [place] [address] Phosphate [Mass/Vol] 3.1 mg/dL 2.5 - 4 .5 mg/dL [facility] Procalcitoninon 12-27-2020 Procalcitonin 0.11 ng/mL High 0.00-0.09 [facility] Comment on above: Performed By: #### P MICHELLE ####[address] [place] [address] Interpretation See Below Normal [facility] Work Phone: Comment on above: Result Comment: PCT <0.50 = Low risk of severe sepsis and/or septic shock.PCT >2.00 = High risk of severe sepsis and/or septic shock. Performed By: #### M G3, BMP3, PHOS3, PCAL ####[facility] [employer] [id number] [place], [place] Interpretation and review of laboratory results Abnormal [facility] Work Phone: Procalcitonin 0.11 ng/mL High 0.00 - 0.09 ng/mL [facility] Work Phone: [facility] Work Phone: XR CHEST PORTABLEon 12-28-19 21 [facility] RAD [facility] Work Phone: [phone] Radiology Study observation (narrative) [facility] Work Phone: XR CHEST PORTABLEOrdered By: Cruz Collins on 12-27-2020 [facility] Work Phone: Basic Metabolic Panelon 11 Anion gap [Moles/Vol] 3 mmol/L Normal 3-13 [facility] Comment on above: Performed By: #### H EMDF, BMP3, MDIFF, PHOS3 ####[facility] [employer] [id number] [place], [place] Calcium [Mass/Vol] 8.0 mg/dL Low 8.4-10.4 [facility] Comment on above: Performed By: #### H EMDF, BMP3, MDIFF, PHOS3 ####[facility] [employer] [id number] [place], [place] CO2 [Moles/Vol] 26 mmol/L Normal 22-30 [facility] Comment on above: Performed By: #### H EMDF, BMP3, MDIFF, PHOS3 ####[facility] [employer] [id number] [place], [place] Glucose [Mass/Vol] 103 mg/dL High 70-100 [facility] Comment on above: Performed By: #### H EMDF, BMP3, MDIFF, PHOS3 ####[facility] [employer] [id number] [place], [place] Urea nitrogen [Mass/Vol] 18 mg/dL Normal 9-20 [facility] Comment on above: Performed By: #### H ELMER RAWLS MDIFF, PHOS3 ####[facility] [address] [place], [place] Creatinine [Mass/Vol] 0.64 mg/dL Normal 0.52-1.25 [facility] Comment on above: Performed By: #### H ELMER RAWLS MDIFF, PHOS3 ####[facility] [employer] [address] [place], [place] eGFR OTHER > 90.0 Normal >60 [facility] Comment on above: Result Comment: KDIG O guidelines provide the following GFR categories:Stage GFR(ml/min/1.73 m2) TermsG1 >=90 Normal or highG2 60-89 Mildly decreased*G3a 45-59 Mildly to moderately [id number] 30-44 Moderately to severely decreasedG4 15-29 Severely decreasedG5 <15 Kidney failure*Relative to young adult level.In the absence of evidence of kidney damage, neither GFRcategory G1 nor G2 fulfill the criteria for CKD.The CKD-EPI equation is validated in individuals 18 yearsof age and older. Currently the best equation forestimating glomerular filtration rate (GFR) from serumcreatinine in children is the Bedside Yu equation.It is less accurate in patients with extremes of musclemass, restriction of dietary protein, ingestion of creatine,extra-renal metabolism of creatinine, or treatment withmedications that affect renal tubular creatinine secretion. Performed By: #### H ELMER RAWLS MDIFF, PHOS3 ####[facility] [employer] [id number] [place], [place] GFR/1.73 sq M.predicted among blacks MDRD (S/P/Bld) [Vol rate/Area] mL/min/{1.73_m2} Normal >60 [facility] Comment on above: Performed By: #### H ELMER RAWLS MDIFF PHOS3 ####[facility] [employer] [id number] [place], [place] Potassium [Moles/Vol] 3.9 mmol/L Normal 3.5-5.1 [facility] Comment on above: Performed By: #### H ELMER RAWLS MDIFF PHOS3 ####[facility] [address] [place] [address] Sodium [Moles/Vol] 144 mmol/L Normal 135-145 [facility] Comment on above: Performed By: #### H ELMER RAWLS MDIFF, PHOS3 ####[facility] [address] [place] [address] Chloride [Moles/Vol] 115 mmol/L High 98-107 [facility] Comment on above: Performed By: #### H ELMER RAWLS MDIFF, PHOS3 ####[address] [place] [address] Anion gap [Moles/Vol] 3 mmol/L 3 - 13 mmol/L [facility] Calcium [Mass/Vol] 8.0 mg/dL Low 8.4 - 10. 4 mg/dL [facility] Chloride [Moles/Vol] 115 mmol/L High 98 - 10 7 mmol/L [facility] CO2 [Moles/Vol] 26 mmol/L 22 - 30 mmol/L [facility] Creatinine [Mass/Vol] 0.64 mg/dL 0.52 - 1.25 mg/dL [facility] EGFR IF NonAfrican Belizean >90.0 >60 mL/min [facility] GFR/1.73 sq M.predicted among blacks MDRD (S/P/Bld) [Vol rate/Area] mL/min/{1.73_m2} >60 mL/min [facility] Glucose [Mass/Vol] 103 mg/dL High 70 - 100 mg/dL [facility] Interpretation and review of laboratory results Abnormal [facility] Potassium [Moles/Vol] 3.9 mmol/L 3.5 - 5.1 mmol/L [facility] Sodium [Moles/Vol] 144 mmol/L 135 - 145 mmol/L [facility] Urea nitrogen (BldV) [Mass/Vol] 18 mg/dL 9 - 20 mg/dL [facility] CBC WITH AUTO DIFFERENTIALon 12-26-2020 Hemoglobin.gastrointe stinal spec 1 Ql (Stl) 8.7 g/dL Low 11.7 - 16.0 g/dL [facility] Interpretation and review of laboratory results Abnormal [facility] MCHC (RBC) [Mass/Vol] 32.1 % 32.0 - 36.0 % [facility] Platelet distribution width (Bld) [Ratio] 14.8 % High 11.5 - 14.5 % [facility] CR Abdomen APon 12-26-2020 CR Abdomen AP Normal [facility] CR Chest Portableon 12-27-19 CR Chest Portable Normal [facility] Hemogram w/ Autodiffon 12-26 Hematocrit (Bld) [Volume fraction] 27.0 % Low 35.0-47.0 [facility] Comment on above: Performed By: #### H EMDZACH Del Rosario3LUIS ALFREDO, PHOS3 ####[address] MCH (RBC) [Entitic mass] 29.8 pg Normal 26.0-34.0 [facility] Comment on above: Performed By: #### H EMDELMER Del Rosario MDIFF, PHOS3 ####[address] MCV (RBC) [Entitic vol] 92.9 fL Normal 79.0-98.0 [facility] Comment on above: Performed By: #### H EMDELMER Del Rosario MDIFF, PHOS3 ####[address] Platelet mean volume (Bld) [Entitic vol] 9.0 fL Normal 7.4-10.4 [facility] Comment on above: Performed By: #### H EMDFZACH3LUIS ALFREDO, PHOS3 ####[address] Platelets (Bld) [#/Vol] 464 10*3/uL High 140-440 [facility] Comment on above: Performed By: #### H EMDZACH Del Rosario3LUIS ALFREDO, PHOS3 ####[address] RBC (Bld) [#/Vol] 2.91 10*6/uL Low 3.80-5.20 [facility] Comment on above: Performed By: #### H EMDF BMP3 MDIFF, PHOS3 ####[address] WBC (Bld) [#/Vol] 17.9 10*3/uL High 3.6-10.7 [facility] Comment on above: Performed By: #### H ELMER RAWLS MDIFF, PHOS3 ####[address] Erythrocyte distribution width (RBC) [Ratio] 14.8 % High 11.5-14.5 [facility] Comment on above: Performed By: #### H ELMER RAWLS MDIFF, PHOS3 ####[address] Hemoglobin (Bld) [Mass/Vol] 8.7 g/dL Low 11.7-16.0 [facility] Comment on above: Performed By: #### H ELMER RAWLS MDIFF, PHOS3 ####[address] MCHC 32.1 % Normal 32.0-36.0 [facility] Comment on above: Performed By: #### H ELMER RAWLS MDIFF, PHOS3 ####[address] Manual Diffon 12-26-2020 Abs Lymph Cnt 1.6 10*3/uL Normal 1.1-4.5 [facility] Comment on above: Performed By: #### H ELMER RAWLS MDIFF, PHOS3 ####[address] Abs Monocyte Cnt 0.7 10*3/uL Normal 0.2-1.1 [facility] Comment on above: Performed By: #### H ELMER RAWLS MDIFF, PHOS3 ####[address] Abs Neutrophile Cnt 15.2 10*3/uL High 2.2-8.2 [facility] Comment on above: Performed By: #### H ELMER RAWLS MDIFF, PHOS3 ####[facility] [id number] [place], [place] Anisocytosis Slight Normal [facility] Comment on above: Performed By: #### H EMDF BMP3, MDIFF, PHOS3 ####[address] [place], [place] Lymphocytes 9 % Low 20-40 [facility] Comment on above: Performed By: #### H EMDF, BMP3, MDIFF, PHOS3 ####[address] [place], [place] Macrocytosis Slight Normal [facility] Comment on above: Performed By: #### H EMDF BMP3, MDIFF, PHOS3 ####[address] [place], [place] Metamyelocytes 2 % Abnormal <1 [facility] Comment on above: Performed By: #### H EMDF, BMP3, MDIFF, PHOS3 ####[address] [place], [place] Microcytosis Slight Normal [facility] Comment on above: Performed By: #### H EMDF, BMP3, MDIFF, PHOS3 ####[address] [place], [place] Monocytes 4 % Normal 2-10 [facility] Comment on above: Performed By: #### H EMDF, BMP3, MDIFF, PHOS3 ####[address] [place], [place] NRBC 7 /100{WBCs} High -1-0 [facility] Comment on above: Result Comment: Newb orn (<60 days) 1-10Adult <1 Performed By: #### H EMDF, BMP3, MDIFF, PHOS3 ####[address] [place], [place] Ovalocytes Slight Normal [facility] Comment on above: Performed By: #### H EMDF, BMP3, MDIFF, PHOS3 ####[address] [place], [place] Poikilocytosis Slight Normal [facility] Comment on above: Performed By: #### H EMDF, BMP3, MDIFF, PHOS3 ####[address] [place], [place] Polychromasia Slight Normal [facility] Comment on above: Performed By: #### H EMDF, BMP3, MDIFF, PHOS3 ####[address] [place], [place] RBC Morphology ABNORMAL Normal [facility] Comment on above: Performed By: #### H EMDF, BMP3, MDIFF, PHOS3 ####[address] Seg Neutrophils 85 % High 40-80 [facility] Comment on above: Performed By: #### H EMDF, BMP3, MDIFF, PHOS3 ####[address] Abs Baso Cnt 0.0 10*3/uL Normal 0.0-0.2 [facility] Comment on above: Performed By: #### H EMDF, BMP3, MDIFF, PHOS3 ####[address] Abs Eosin Cnt 0.0 10*3/uL Normal 0.0-0.5 [facility] Comment on above: Performed By: #### H EMDF, BMP3, MDIFF, PHOS3 ####[address] Bands 0 % Normal 0-3 [facility] Comment on above: Performed By: #### H EMDF, BMP3, MDIFF, PHOS3 ####[address] Basophils 0 % Normal 0-2 [facility] Comment on above: Performed By: #### H EMDF, BMP3, MDIFF, PHOS3 ####[address] Cells counted 100 Normal [facility] Comment on above: Performed By: #### H ELMER RAWLS MDIFF, PHOS3 ####[facility] [employer] [id number] [place] [address] Eosinophils 0 % Low 1-6 [facility] Comment on above: Performed By: #### H ELMER RAWLS MDIFF, PHOS3 ####[facility] [employer] [id number] [place] [address] Manual Differentialon 2020 Absolute Baso # 0.0 10*3/uL 0.0 - 0.2 10*3/uL [facility] Absolute Eos # 0.0 10*3/uL 0.0 - 0.5 10*3/uL [facility] Absolute Lymph # 1.6 10*3/uL 1.1 - 4.5 10*3/uL [facility] Absolute Harnett # 0.7 10*3/uL 0.2 - 1.1 10*3/uL [facility] Absolute Neut # 15.2 10*3/uL High 2.2 - 8.2 10*3/uL [facility] Anisocytosis Slight [facility] Bands 0 % 0 - 3 % [facility] Basophils/100 WBC (Bld) 0 % 0 - 2 % [facility] Eosinophils/100 WBC (Bld) 0 % Low 1 - 6 % [facility] Interpretation and review of laboratory results Abnormal [facility] Lymphocytes/100 WBC (Bld) 9 % Low 20 - 40 % [facility] Macrocytosis Slight [facility] Metamyelocytes 2 % Abnormal <1 [facility] Microcytosis Slight [facility] Monocytes/100 WBC (Bld) 4 % 2 - 10 % [facility] nRBC 7 /100{WBCs} High -1 - 0 /100{WBCs} [facility] Ovalocytes Slight [facility] Poikilocytes Slight [facility] Polychromasia Slight [facility] RBC (Bld) [#/Vol] ABNORMAL [facility] Seg Neutrophils 85 % High 40 - 80 % [facility] TOTAL CELLS COUNTED 100 [facility] No Panel Informationon 12-26 Radiology Study observation (narrative) [facility] Work Phone: [facility] OPERATIVE REPORTon [facility] Phosphoruson 12-26-2020 Phosphate [Mass/Vol] 3.1 mg/dL Normal 2.5-4.5 [facility] Comment on above: Performed By: #### H EMDF, BMP3, MDIFF, PHOS3 ####[address] [place], [place] Phosphate [Mass/Vol] 3.1 mg/dL 2.5 - 4 .5 mg/dL [facility] Procalcitoninon 12-26-2020 Procalcitonin 0.09 ng/mL Normal 0.00-0.09 [facility] Comment on above: Performed By: #### P MICHELLE ####[address] [place], [place] Interpretation See Below [facility] Procalcitonin 0.09 ng/mL 0.00 - 0.09 ng/mL [facility] Interpretation See Below Normal [facility] Comment on above: Result Comment: PCT <0.50 = Low risk of severe sepsis and/or septic shock.PCT >2.00 = High risk of severe sepsis and/or septic shock. Performed By: #### P MICHELLE ####[facility] [employer] [id number] [place], [place] Interpretation See Below Normal [facility] Comment on above: Result Comment: PCT <0.50 = Low risk of severe sepsis and/or septic shock.PCT >2.00 = High risk of severe sepsis and/or septic shock. Performed By: #### P MICHELLE ####[address] XR ABDOMEN (KUB) (SINGLE AP VIEW)on 12-26-2020 [facility] [employer] Work Phone: XR ABDOMEN (KUB) (SINGLE AP VIEW)Ordered By: Theron Cooley on 12-26-2020 [facility] Work Phone: XR CHEST PORTABLEon 12-27-19 21 [facility] [employer] Work Phone: XR CHEST PORTABLEOrdered By: Marvel Wilder on 12-26-2020 [facility] Work Phone: Arterial Blood Gaseson 11-08 -2021 CO2 [Moles/Vol] 28.1 mmol/L High 23.0-27.0 [facility] Comment on above: Performed By: #### JIGAR NATH ####[address] [place], [place] HCO3 (Bld) [Moles/Vol] 26.9 mmol/L High 21.0-25.0 [facility] Comment on above: Performed By: #### JIGAR NATH ####[address] Hemoglobin (Bld) [Mass/Vol] 8.6 g/dL Normal ScreenOnly [facility] Comment on above: Performed By: #### JIGAR NATH ####[address] [place], [place] Oxygen (Bld) [Partial pressure] 102.4 mm[Hg] High 80.0-100.0 [facility] Comment on above: Performed By: #### JIGAR NATH ####[address] Oxygen saturation in Blood 97.7 % Normal 95.0-100.0 [facility] Comment on above: Performed By: #### JIGAR NATH ####[address] pCO2 38.8 mm[Hg] Normal 35.0-45.0 [facility] Comment on above: Performed By: #### JIGAR NATH ####[address] pH 7.459 High 7.350-7.450 [facility] Comment on above: Performed By: #### JIGAR NATH ####[address] Std Base Excess 2.9 mmol/L Normal -3.0-3.0 [facility] Comment on above: Performed By: #### JIGAR NATH ####[address] FIO2 No data Normal [facility] Comment on above: Performed By: #### Jacek ALBRIGHT3ABG ####[address] [place], [place] BLOOD GAS, ARTERIALon 2020 Base Excess, Arterial 2.9 mmol/L -3.0 - 3.0 mmol/L [facility] CO2 [Moles/Vol] 28.1 mmol/L High 23.0 - 27.0 mmol/L [facility] FIO2 Arterial No data [facility] HCO3 (Bld) [Moles/Vol] 26.9 mmol/L High 21.0 - 25.0 mmol/L [facility] Hemoglobin (Bld) [Mass/Vol] 8.6 g/dL ScreenOnly [facility] Interpretation and review of laboratory results Abnormal [facility] Oxygen saturation in Blood 97.7 % 95.0 - 100.0 % [facility] pCO2, Arterial 38.8 mm[Hg] 35.0 - 45.0 mm[Hg] [facility] pH, Arterial 7.459 High [facility] pO2, Arterial 102.4 mm[Hg] High 80.0 - 100.0 mm[Hg] [facility] Basic Metabolic Panelon Anion gap [Moles/Vol] 1 mmol/L Low 3-13 [facility] Comment on above: Performed By: #### Jacek HORNER, ABG ####[address] [place], [place] Calcium [Mass/Vol] 7.9 mg/dL Low 8.4-10.4 [facility] Comment on above: Performed By: #### Jacek ALBRIGHT3, ABG ####[address] [place] [address] CO2 [Moles/Vol] 28 mmol/L Normal 22-30 [facility] Comment on above: Performed By: #### Jacek ALBRIGHT3, ABG ####[address] [place] [address] Glucose [Mass/Vol] 105 mg/dL High 70-100 [facility] Comment on above: Performed By: #### Jacek ALBRIGHT3, ABG ####[facility] [place], [place] Urea nitrogen [Mass/Vol] 19 mg/dL Normal 9-20 [facility] Comment on above: Performed By: #### Jacek ALBRIGHT3JIGAR ####[facility] [place], [place] Creatinine [Mass/Vol] 0.54 mg/dL Normal 0.52-1.25 [facility] Comment on above: Performed By: #### JIGAR NATH ####[address] [place], [place] eGFR OTHER > 90.0 Normal >60 [facility] Comment on above: Result Comment: KDIG O guidelines provide the following GFR categories:Stage GFR(ml/min/1.73 m2) TermsG1 >=90 Normal or highG2 60-89 Mildly decreased*G3a 45-59 Mildly to moderately [id number] 30-44 Moderately to severely decreasedG4 15-29 Severely decreasedG5 <15 Kidney failure*Relative to young adult level.In the absence of evidence of kidney damage, neither GFRcategory G1 nor G2 fulfill the criteria for CKD.The CKD-EPI equation is validated in individuals 18 yearsof age and older. Currently the best equation forestimating glomerular filtration rate (GFR) from serumcreatinine in children is the Bedside Yu equation.It is less accurate in patients with extremes of musclemass, restriction of dietary protein, ingestion of creatine,extra-renal metabolism of creatinine, or treatment withmedications that affect renal tubular creatinine secretion. Performed By: #### JIGAR NATH ####[facility] [place], [place] GFR/1.73 sq M.predicted among blacks MDRD (S/P/Bld) [Vol rate/Area] mL/min/{1.73_m2} Normal >60 [facility] Comment on above: Performed By: #### JIGAR NATH ####[facility] [place], [place] Potassium [Moles/Vol] 3.5 mmol/L Normal 3.5-5.1 [facility] Comment on above: Performed By: #### Jacek HORNER G ####[facility] [place] [address] Chloride [Moles/Vol] 115 mmol/L High 98-107 [facility] Comment on above: Performed By: #### B NATALEE3, ABG ####[facility] [place] [address] Sodium [Moles/Vol] 144 mmol/L Normal 135-145 [facility] Comment on above: Performed By: #### B NATALEE3, ABG ####[address] [place] [address] Anion gap [Moles/Vol] 1 mmol/L Low 3 - 13 mmol/L [facility] Calcium [Mass/Vol] 7.9 mg/dL Low 8.4 - 10. 4 mg/dL [facility] Chloride [Moles/Vol] 115 mmol/L High 98 - 10 7 mmol/L [facility] CO2 [Moles/Vol] 28 mmol/L 22 - 30 mmol/L [facility] Creatinine [Mass/Vol] 0.54 mg/dL 0.52 - 1.25 mg/dL [facility] EGFR IF NonAfrican Belizean >90.0 >60 mL/min [facility] GFR/1.73 sq M.predicted among blacks MDRD (S/P/Bld) [Vol rate/Area] mL/min/{1.73_m2} >60 mL/min [facility] Glucose [Mass/Vol] 105 mg/dL High 70 - 100 mg/dL [facility] Interpretation and review of laboratory results Abnormal [facility] Potassium [Moles/Vol] 3.5 mmol/L 3.5 - 5.1 mmol/L [facility] Sodium [Moles/Vol] 144 mmol/L 135 - 145 mmol/L [facility] Urea nitrogen (BldV) [Mass/Vol] 19 mg/dL 9 - 20 mg/dL [facility] CBCon 12-25-2020 Hematocrit (Bld) [Volume fraction] 26.3 % Low 35.0 - 47.0 % [facility] Hemoglobin.gastrointe stinal spec 1 Ql (Stl) 8.6 g/dL Low 11.7 - 16.0 g/dL [facility] Interpretation and review of laboratory results Abnormal [facility] MCH (RBC) [Entitic mass] 29.8 pg 26.0 - 34.0 pg [facility] MCHC (RBC) [Mass/Vol] 32.6 % 32.0 - 36.0 % [facility] MCV (RBC) [Entitic vol] 91.4 fL 79.0 - 98.0 fL [facility] Platelet distribution width (Bld) [Ratio] 15.1 % High 11.5 - 14.5 % [facility] Platelet mean volume (Bld) [Entitic vol] 9.1 fL 7.4 - 10.4 fL [facility] Platelets (Bld) [#/Vol] 381 10*3/uL 140 - 440 10*3/uL [facility] RBC (Bld) [#/Vol] 2.88 10*6/uL Low 3.80 - 5.2 0 10*6/uL [facility] WBC (Bld) [#/Vol] 15.1 10*3/uL High 3.6 - 10.7 10*3/uL [facility] MYCOBACTERIA Conc.on 12-25-2020 CULTURE MYCOBACTERIA Conc. CULTURE MYCOBACTERIA Conc. --> Status: F No acid-fast bacilli isolated after 6 weeks incubation. STAIN ACID-FAST --> Status: F No acid-fast bacilli seen in smear. - Method: Fluorescent Stain - Method: Fluorescent Stain Normal [facility] Comment on above: Performed By: #### C /TBC ####[address] [place], [place] Fungal stainon 12-25-2020 Fungus Stain [facility] Hemogramon 12-25-2020 Erythrocyte distribution width (RBC) [Ratio] 15.1 % High 11.5-14.5 [facility] Comment on above: Performed By: #### H EMOG ####[address] [place], [place] Hematocrit (Bld) [Volume fraction] 26.3 % Low 35.0-47.0 [facility] Comment on above: Performed By: #### H EMOG ####[address] [place], [place] Hemoglobin (Bld) [Mass/Vol] 8.6 g/dL Low 11.7-16.0 [facility] Comment on above: Performed By: #### H EMOG ####[address] MCH (RBC) [Entitic mass] 29.8 pg Normal 26.0-34.0 [facility] Comment on above: Performed By: #### H EMOG ####[address] MCHC 32.6 % Normal 32.0-36.0 [facility] Comment on above: Performed By: #### H EMOG ####[address] MCV (RBC) [Entitic vol] 91.4 fL Normal 79.0-98.0 [facility] Comment on above: Performed By: #### H EMOG ####[address] Platelet mean volume (Bld) [Entitic vol] 9.1 fL Normal 7.4-10.4 [facility] Comment on above: Performed By: #### H EMOG ####[address] Platelets (Bld) [#/Vol] 381 10*3/uL Normal 140-440 [facility] Comment on above: Performed By: #### H EMOG ####[address] RBC (Bld) [#/Vol] 2.88 10*6/uL Low 3.80-5.20 [facility] Comment on above: Performed By: #### H EMOG ####[address] WBC (Bld) [#/Vol] 15.1 10*3/uL High 3.6-10.7 [facility] Comment on above: Performed By: #### H EMOG ####[address] Op Noteon 12-25-2020 Op Note Normal [facility] Op Note Normal [facility] STAIN FUNGUSon 12-25-2020 STAIN FUNGUS STAIN FUNGUS --> Sta tus: F No fungal elements seen. - Method: Direct Exam by Calcofluor Stain - Method: Direct Exam by Calcofluor Stain Normal [facility] Comment on above: Performed By: #### S /FUN ####[facility] [place], [place] VL LOWER EXTREMITY BILATERAL VENOUS DUPLEXon 12-25-2020 [facility] Work Phone: Radiology Study observation (narrative) [facility] Work Phone: VL LOWER EXTREMITY BILATERAL VENOUS DUPLEXOrdered By: Karrie Rosenberg on 12-25-2020 [facility] Work Phone: VL Venous Duplex US Lower Ex t Bilateralon 12-25-2020 VL Venous Duplex US Lower Ext Bilateral Normal [facility] Arterial Blood Gaseson 12-24 CO2 [Moles/Vol] 26.9 mmol/L Normal 23.0-27.0 [facility] Comment on above: Performed By: #### A BG BMP3 ####[facility] [employer] [address] [place], [place] HCO3 (Bld) [Moles/Vol] 25.9 mmol/L High 21.0-25.0 [facility] Comment on above: Performed By: #### A BG BMP3 ####[facility] [employer] [id number] [place], [place] Hemoglobin (Bld) [Mass/Vol] 9.7 g/dL Normal ScreenOnly [facility] Comment on above: Performed By: #### A BG, BMP3 ####[facility] [employer] [address] [place], [place] Oxygen (Bld) [Partial pressure] 92.9 mm[Hg] Normal 80.0-100.0 [facility] Comment on above: Performed By: #### A BG, BMP3 ####[facility] [employer] [address] [place], [place] Oxygen saturation in Blood 97.1 % Normal 95.0-100.0 [facility] Comment on above: Performed By: #### A BG, BMP3 ####[facility] [address] [place] [address] pCO2 33.3 mm[Hg] Low 35.0-45.0 [facility] Comment on above: Performed By: #### A BG, BMP3 ####[facility] [place] [address] pH 7.509 High 7.350-7.450 [facility] Comment on above: Performed By: #### A BG, BMP3 ####[facility] [address] [place] [address] Std Base Excess 3.0 mmol/L Normal -3.0-3.0 [facility] Comment on above: Performed By: #### A BG, BMP3 ####[address] [place] [address] FIO2 No data Normal [facility] Comment on above: Performed By: #### A BG, BMP3 ####[address] [place] [address] BLOOD GAS, ARTERIALon 2020 Base Excess, Arterial 3.0 mmol/L -3.0 - 3.0 mmol/L [facility] CO2 [Moles/Vol] 26.9 mmol/L 23.0 - 27.0 mmol/L [facility] FIO2 Arterial No data [facility] HCO3 (Bld) [Moles/Vol] 25.9 mmol/L High 21.0 - 25.0 mmol/L [facility] Hemoglobin (Bld) [Mass/Vol] 9.7 g/dL ScreenOnly [facility] Interpretation and review of laboratory results Abnormal [facility] Oxygen saturation in Blood 97.1 % 95.0 - 100.0 % [facility] pCO2, Arterial 33.3 mm[Hg] Low 35.0 - 45.0 mm[Hg] [facility] pH, Arterial 7.509 High [facility] pO2, Arterial 92.9 mm[Hg] 80.0 - 100.0 mm[Hg] [facility] Basic Metabolic Panelon Anion gap [Moles/Vol] 3 mmol/L Normal 3-13 [facility] Comment on above: Performed By: #### A BG BMP3 ####[employer] [id number] [place], [place] CO2 [Moles/Vol] 28 mmol/L Normal 22-30 [facility] Comment on above: Performed By: #### A BG BMP3 ####[facility] [employer] [address] [place], [place] Creatinine [Mass/Vol] 0.63 mg/dL Normal 0.52-1.25 [facility] Comment on above: Performed By: #### A BG BMP3 ####[facility] [employer] [address] [place], [place] eGFR OTHER > 90.0 Normal >60 [facility] Comment on above: Result Comment: KDIG O guidelines provide the following GFR categories:Stage GFR(ml/min/1.73 m2) TermsG1 >=90 Normal or highG2 60-89 Mildly decreased*G3a 45-59 Mildly to moderately ahjryqteaF2j 30-44 Moderately to severely decreasedG4 15-29 Severely decreasedG5 <15 Kidney failure*Relative to young adult level.In the absence of evidence of kidney damage, neither GFRcategory G1 nor G2 fulfill the criteria for CKD.The CKD-EPI equation is validated in individuals 18 yearsof age and older. Currently the best equation forestimating glomerular filtration rate (GFR) from serumcreatinine in children is the Bedside Yu equation.It is less accurate in patients with extremes of musclemass, restriction of dietary protein, ingestion of creatine,extra-renal metabolism of creatinine, or treatment withmedications that affect renal tubular creatinine secretion. Performed By: #### A BG BMP3 ####[facility] [employer] [address] [place], [place] GFR/1.73 sq M.predicted among blacks MDRD (S/P/Bld) [Vol rate/Area] mL/min/{1.73_m2} Normal >60 [facility] Comment on above: Performed By: #### A BG BMP3 ####[facility] [employer] [address] [place], [place] Urea nitrogen [Mass/Vol] 20 mg/dL Normal 9-20 [facility] Comment on above: Performed By: #### A BG BMP3 ####[address] [place] [address] Chloride [Moles/Vol] 116 mmol/L High 98-107 [facility] Comment on above: Performed By: #### A BG, BMP3 ####[address] [place], [place] Potassium [Moles/Vol] 3.5 mmol/L Normal 3.5-5.1 [facility] Comment on above: Performed By: #### A BG BMP3 ####[address] [place], [place] Sodium [Moles/Vol] 147 mmol/L High 135-145 [facility] Comment on above: Performed By: #### A BG BMP3 ####[address] [place], [place] Calcium [Mass/Vol] 8.2 mg/dL Low 8.4-10.4 [facility] Comment on above: Performed By: #### A BG BMP3 ####[address] [place], [place] Glucose [Mass/Vol] 112 mg/dL High 70-100 [facility] Comment on above: Performed By: #### A BG BMP3 ####[address] [place], [place] Anion gap [Moles/Vol] 3 mmol/L 3 - 13 mmol/L [facility] Chloride [Moles/Vol] 116 mmol/L High 98 - 10 7 mmol/L [facility] CO2 [Moles/Vol] 28 mmol/L 22 - 30 mmol/L [facility] Creatinine [Mass/Vol] 0.63 mg/dL 0.52 - 1.25 mg/dL [facility] EGFR IF NonAfrican Belizean >90.0 >60 mL/min [facility] GFR/1.73 sq M.predicted among blacks MDRD (S/P/Bld) [Vol rate/Area] mL/min/{1.73_m2} >60 mL/min [facility] Interpretation and review of laboratory results Abnormal [facility] Potassium [Moles/Vol] 3.5 mmol/L 3.5 - 5.1 mmol/L [facility] Sodium [Moles/Vol] 147 mmol/L High 135 - 145 mmol/L [facility] Urea nitrogen (BldV) [Mass/Vol] 20 mg/dL 9 - 20 mg/dL [facility] CBCon 12-24-2020 Hematocrit (Bld) [Volume fraction] 29.5 % Low 35.0 - 47.0 % [facility] Hemoglobin.gastrointe stinal spec 1 Ql (Stl) 9.7 g/dL Low 11.7 - 16.0 g/dL [facility] Interpretation and review of laboratory results Abnormal [facility] MCH (RBC) [Entitic mass] 29.7 pg 26.0 - 34.0 pg [facility] MCHC (RBC) [Mass/Vol] 32.8 % 32.0 - 36.0 % [facility] MCV (RBC) [Entitic vol] 90.5 fL 79.0 - 98.0 fL [facility] Platelet distribution width (Bld) [Ratio] 14.9 % High 11.5 - 14.5 % [facility] Platelet mean volume (Bld) [Entitic vol] 9.2 fL 7.4 - 10.4 fL [facility] Platelets (Bld) [#/Vol] 323 10*3/uL 140 - 440 10*3/uL [facility] RBC (Bld) [#/Vol] 3.26 10*6/uL Low 3.80 - 5.2 0 10*6/uL [facility] WBC (Bld) [#/Vol] 17.6 10*3/uL High 3.6 - 10.7 10*3/uL [facility] CR Abdomen APon 12-24-2020 CR Abdomen AP Normal [facility] CR Chest Portableon 12-25-19 CR Chest Portable Normal [facility] CR Chest Portable Normal [facility] Complete Urinalysison 2020 Appearance (U) Clear Normal Clear [facility] Comment on above: Result Comment: . Performed By: #### C UA2 ####[facility] [address] [place] [address] Bacteria Few Abnormal Negative [facility] Comment on above: Result Comment: . Performed By: #### C UA2 ####[facility] [employer] [id number] [place], [place] Bilirubin,Urine Negative Normal Negative [facility] Comment on above: Result Comment: . Performed By: #### C UA2 ####[facility] [employer] [id number] [place], [place] Cast, Hyaline Negative Normal Negative [facility] Comment on above: Result Comment: . Performed By: #### C UA2 ####[facility] [employer] [id number] [place], [place] Color (U) Yellow Normal Lt. Yellow [facility] Comment on above: Result Comment: . Performed By: #### C UA2 ####[facility] [employer] [address] [place], [place] Glucose Ql (U) Normal Normal Normal (<70) [facility] Comment on above: Result Comment: . Performed By: #### C UA2 ####[facility] [employer] [id number] [place], [place] Ketone,Urine Trace Abnormal Negative [facility] Comment on above: Result Comment: . Performed By: #### C UA2 ####[facility] [employer] [address] [place], [place] Leukocytes,Urine 250 Richard/uL Abnormal Negative [facility] Comment on above: Result Comment: . Performed By: #### C UA2 ####[facility] [employer] [id number] [place], [place] Mucous Threads Few Normal Negative [facility] Comment on above: Result Comment: . Performed By: #### C UA2 ####[facility] [employer] [id number] [place], [place] Nitrites,Urine Negative Normal Negative [facility] Comment on above: Result Comment: . Performed By: #### C UA2 ####[facility] [employer] [id number] [place], [place] Non-Squamous Epithelial 2 /[HPF] Abnormal Negative [facility] Comment on above: Result Comment: . Performed By: #### C UA2 ####[address] [place], [place] Occult Blood,Urine 0.06 mg/dL Abnormal Negative [facility] Comment on above: Result Comment: . Performed By: #### C UA2 ####[address] pH,Urine 6.5 Normal 5.0-8.0 [facility] Comment on above: Result Comment: . Performed By: #### C UA2 ####[address] Protein (U) [Mass/Vol] 50 mg/dL Abnormal Negative [facility] Comment on above: Result Comment: . Performed By: #### C UA2 ####[address] RBC, Urine 11 - 25 Abnormal 0-2 [facility] Comment on above: Result Comment: . Performed By: #### C UA2 ####[address] Specific [place],Urine 1.029 Normal 1.005 - 1.030 [facility] Comment on above: Result Comment: . Performed By: #### C UA2 ####[address] Squamous Epithelial 3 - 5 Normal 3-5 [facility] Comment on above: Result Comment: . Performed By: #### C UA2 ####[address] Urobilinogen,Urine 2 mg/dL Abnormal Normal (0-1) [facility] Comment on above: Result Comment: . Performed By: #### C UA2 ####[address] WBC, Urine 11 - 25 Abnormal 0-5 [facility] Comment on above: Result Comment: . Performed By: #### C UA2 ####[address] [address] Gram Stainon 12-24-2020 Gram Stain Result [facility] Hemogramon 12-24-2020 Erythrocyte distribution width (RBC) [Ratio] 14.9 % High 11.5-14.5 [facility] Comment on above: Performed By: #### H EMOG ####[address] [place], [place] Hematocrit (Bld) [Volume fraction] 29.5 % Low 35.0-47.0 [facility] Comment on above: Performed By: #### H EMOG ####[address] Hemoglobin (Bld) [Mass/Vol] 9.7 g/dL Low 11.7-16.0 [facility] Comment on above: Performed By: #### H EMOG ####[address] MCH (RBC) [Entitic mass] 29.7 pg Normal 26.0-34.0 [facility] Comment on above: Performed By: #### H EMOG ####[address] MCHC 32.8 % Normal 32.0-36.0 [facility] Comment on above: Performed By: #### H EMOG ####[address] MCV (RBC) [Entitic vol] 90.5 fL Normal 79.0-98.0 [facility] Comment on above: Performed By: #### H EMOG ####[address] Platelet mean volume (Bld) [Entitic vol] 9.2 fL Normal 7.4-10.4 [facility] Comment on above: Performed By: #### H EMOG ####[address] Platelets (Bld) [#/Vol] 323 10*3/uL Normal 140-440 [facility] Comment on above: Performed By: #### H EMOG ####[address] RBC (Bld) [#/Vol] 3.26 10*6/uL Low 3.80-5.20 [facility] Comment on above: Performed By: #### H EMOG ####[address] WBC (Bld) [#/Vol] 17.6 10*3/uL High 3.6-10.7 [facility] Comment on above: Performed By: #### H EMOG ####[address] Procalcitoninon 12-24-2020 Procalcitonin 0.14 ng/mL High 0.00-0.09 [facility] Comment on above: Performed By: #### P MICHELLE ####[address] Interpretation See Below [facility] Interpretation and review of laboratory results Abnormal [facility] Procalcitonin 0.14 ng/mL High 0.00 - 0.09 ng/mL [facility] Interpretation See Below Normal [facility] Comment on above: Result Comment: PCT <0.50 = Low risk of severe sepsis and/or septic shock.PCT >2.00 = High risk of severe sepsis and/or septic shock. Performed By: #### P MICHELLE ####[address] STAIN GRAMon 12-24-2020 STAIN GRAM STAIN GRAM --> Statu s: F Moderate polymorphonuclear cells/lpf. Rare gram negative bacilli. Rare gram positive cocci in clusters. Rare gram negative bacilli. Rare gram positive cocci in clusters. Normal [facility] Comment on above: Performed By: #### C S/RE ####[address] [id number] #### S/GRM ####[address] Urinalysison 12-24-2020 Appearance (U) Clear Clear NA [facility] Bacteria, UA Few Abnormal Negative /[HPF] [facility] Bilirubin Urine Negative Negative mg/dL [facility] Color (U) Yellow Lt. Yellow NA [facility] Glucose, Ur Normal Normal (<70) mg/dL [facility] Hyaline Casts, UA Negative Negative /[LPF] [facility] Interpretation and review of laboratory results Abnormal [facility] Ketones Ql (U) Trace Abnormal Negative mg/dL [facility] LEUKOCYTES, UA 250 Abnormal Negative Richard/uL [facility] Mucous Threads Few Negative /[LPF] [facility] Nitrite, Urine Negative Negative NA [facility] Non-Squamous Epithelial 2 /[HPF] Abnormal Negative [facility] Occult Blood,Urine 0.06 mg/dL Abnormal Negative [facility] pH (U) 6.5 [pH] [facility] Protein (U) [Mass/Vol] 50 mg/dL Abnormal Negative [facility] RBC, UA 11-25 Abnormal 0 - 2 /[HPF] [facility] Specific [place], Urine 1.029 [facility] Squam Epithel, UA 3-5 3 - 5 /[HPF] [facility] Urobilinogen, Urine 2 mg/dL Abnormal Normal (0-1) [facility] WBC, UA 11-25 Abnormal 0 - 5 /[HPF] [facility] XR CHEST PORTABLEon 12-25-19 21 [facility] RAD [facility] Work Phone: [facility] Work Phone: Radiology Study observation (narrative) [facility] Work Phone: Arterial Blood Gaseson 12-23 CO2 [Moles/Vol] 28.5 mmol/L High 23.0-27.0 [facility] Comment on above: Performed By: #### A BG ####[facility] [place] [address] HCO3 (Bld) [Moles/Vol] 27.2 mmol/L High 21.0-25.0 [facility] Comment on above: Performed By: #### A BG ####[facility] [place] [address] Hemoglobin (Bld) [Mass/Vol] 6.6 g/dL Normal ScreenOnly [facility] Comment on above: Performed By: #### A BG ####[address] [place], [place] Oxygen (Bld) [Partial pressure] 115.0 mm[Hg] High 80.0-100.0 [facility] Comment on above: Performed By: #### A BG ####[address] [place], [place] Oxygen saturation in Blood 98.2 % Normal 95.0-100.0 [facility] Comment on above: Performed By: #### A BG ####[address] [place], [place] pCO2 42.7 mm[Hg] Normal 35.0-45.0 [facility] Comment on above: Performed By: #### A BG ####[address] pH 7.422 Normal 7.350-7.450 [facility] Comment on above: Performed By: #### A BG ####[address] [address] [place], [place] Std Base Excess 2.5 mmol/L Normal -3.0-3.0 [facility] Comment on above: Performed By: #### A BG ####[address] [place], [place] FIO2 No data Normal [facility] Comment on above: Performed By: #### A BG ####[address] BLOOD GAS, ARTERIALon 2020 Base Excess, Arterial 2.5 mmol/L -3.0 - 3.0 mmol/L [facility] CO2 [Moles/Vol] 28.5 mmol/L High 23.0 - 27.0 mmol/L [facility] FIO2 Arterial No data [facility] HCO3 (Bld) [Moles/Vol] 27.2 mmol/L High 21.0 - 25.0 mmol/L [facility] Hemoglobin (Bld) [Mass/Vol] 6.6 g/dL ScreenOnly [facility] Interpretation and review of laboratory results Abnormal [facility] Oxygen saturation in Blood 98.2 % 95.0 - 100.0 % [facility] pCO2, Arterial 42.7 mm[Hg] 35.0 - 45.0 mm[Hg] [facility] pH, Arterial 7.422 [facility] pO2, Arterial 115.0 mm[Hg] High 80.0 - 100.0 mm[Hg] [facility] Basic Metabolic Panelon 11-0 -2020 Calcium [Mass/Vol] 8.2 mg/dL Low 8.4-10.4 [facility] Comment on above: Performed By: #### B MP3, HEMOG, MG3 ####[address] [place] [address] Glucose [Mass/Vol] 130 mg/dL High 70-100 [facility] Comment on above: Performed By: #### B MP3, HEMOG, MG3 ####[address] [place] [address] Urea nitrogen [Mass/Vol] 18 mg/dL Normal 9-20 [facility] Comment on above: Performed By: #### B MP3, HEMOG, MG3 ####[facility] [employer] [id number] [place] [address] Anion gap [Moles/Vol] 2 mmol/L Low 3-13 [facility] Comment on above: Performed By: #### B MP3, HEMOG, MG3 ####[facility] [employer] [address] [place] [address] CO2 [Moles/Vol] 25 mmol/L Normal 22-30 [facility] Comment on above: Performed By: #### B MP3, HEMOG, MG3 ####[facility] [employer] [id number] [employer] [place] [address] Creatinine [Mass/Vol] 0.60 mg/dL Normal 0.52-1.25 [facility] Comment on above: Performed By: #### B MP3, HEMOG, MG3 ####[address] [employer] [place] [address] eGFR OTHER > 90.0 Normal >60 [facility] Comment on above: Result Comment: KDIG O guidelines provide the following GFR categories:Stage GFR(ml/min/1.73 m2) TermsG1 >=90 Normal or highG2 60-89 Mildly decreased*G3a 45-59 Mildly to moderately [id number] 30-44 Moderately to severely decreasedG4 15-29 Severely decreasedG5 <15 Kidney failure*Relative to young adult level.In the absence of evidence of kidney damage, neither GFRcategory G1 nor G2 fulfill the criteria for CKD.The CKD-EPI equation is validated in individuals 18 yearsof age and older. Currently the best equation forestimating glomerular filtration rate (GFR) from serumcreatinine in children is the Bedside Yu equation.It is less accurate in patients with extremes of musclemass, restriction of dietary protein, ingestion of creatine,extra-renal metabolism of creatinine, or treatment withmedications that affect renal tubular creatinine secretion. Performed By: #### Jacek ALBRIGHT3YVONNEOG MG3 ####[facility] [employer] [address] GFR/1.73 sq M.predicted among blacks MDRD (S/P/Bld) [Vol rate/Area] mL/min/{1.73_m2} Normal >60 [facility] Comment on above: Performed By: #### Jacek ALBRIGHT3YVONNEOG MG3 ####[facility] [address] [place], [place] Chloride [Moles/Vol] 117 mmol/L High 98-107 [facility] Comment on above: Performed By: #### Jacek ALBRIGHT3 HEMOG, MG3 ####[facility] [employer] [id number] [place], [place] Potassium [Moles/Vol] 3.9 mmol/L Normal 3.5-5.1 [facility] Comment on above: Performed By: #### Jacek ALBRIGHT3 HEMOG, MG3 ####[facility] [address] [place], [place] Sodium [Moles/Vol] 144 mmol/L Normal 135-145 [facility] Comment on above: Performed By: #### Jacek MP3, HEMOG, MG3 ####[facility] [employer] [address] [place], [place] Anion gap [Moles/Vol] 2 mmol/L Low 3 - 13 mmol/L [facility] Calcium [Mass/Vol] 8.2 mg/dL Low 8.4 - 10. 4 mg/dL [facility] Chloride [Moles/Vol] 117 mmol/L High 98 - 10 7 mmol/L [facility] CO2 [Moles/Vol] 25 mmol/L 22 - 30 mmol/L [facility] Creatinine [Mass/Vol] 0.6 mg/dL 0.52 - 1.25 mg/dL [facility] EGFR IF NonAfrican Belizean >90.0 >60 mL/min [facility] GFR/1.73 sq M.predicted among blacks MDRD (S/P/Bld) [Vol rate/Area] mL/min/{1.73_m2} >60 mL/min [facility] Glucose [Mass/Vol] 130 mg/dL High 70 - 100 mg/dL [facility] Interpretation and review of laboratory results Abnormal [facility] Potassium [Moles/Vol] 3.9 mmol/L 3.5 - 5.1 mmol/L [facility] Sodium [Moles/Vol] 144 mmol/L 135 - 145 mmol/L [facility] Urea nitrogen (BldV) [Mass/Vol] 18 mg/dL 9 - 20 mg/dL [facility] CBCon 12-23-2020 Hematocrit (Bld) [Volume fraction] 20.0 % Low 35.0 - 47.0 % [facility] Hemoglobin.gastrointe stinal spec 1 Ql (Stl) 6.6 g/dL Critically low 11.7 - 16.0 g/dL [facility] Interpretation and review of laboratory results Abnormal [facility] MCH (RBC) [Entitic mass] 29.9 pg 26.0 - 34.0 pg [facility] MCHC (RBC) [Mass/Vol] 33.2 % 32.0 - 36.0 % [facility] MCV (RBC) [Entitic vol] 90.0 fL 79.0 - 98.0 fL [facility] Platelet distribution width (Bld) [Ratio] 14.7 % High 11.5 - 14.5 % [facility] Platelet mean volume (Bld) [Entitic vol] 9.1 fL 7.4 - 10.4 fL [facility] Platelets (Bld) [#/Vol] 238 10*3/uL 140 - 440 10*3/uL [facility] RBC (Bld) [#/Vol] 2.22 10*6/uL Low 3.80 - 5.2 0 10*6/uL [facility] WBC (Bld) [#/Vol] 14.5 10*3/uL High 3.6 - 10.7 10*3/uL [facility] Hemoglobin AND Hematocriton 12-23-2020 Hematocrit (Bld) [Volume fraction] 28.0 % Low 35.0-47.0 [facility] Comment on above: Performed By: #### H GHCT ####[address] [place], [place] Hemoglobin (Bld) [Mass/Vol] 9.3 g/dL Low 11.7-16.0 [facility] Comment on above: Performed By: #### H GHCT ####[address] [place], [place] Hemoglobin and Hematocrit, B loodon 12-23-2020 Hematocrit (Bld) [Volume fraction] 28.0 % Low 35.0 - 47.0 % [facility] Hemoglobin.gastrointe stinal spec 1 Ql (Stl) 9.3 g/dL Low 11.7 - 16.0 g/dL [facility] Interpretation and review of laboratory results Abnormal [facility] Hemogramon 12-23-2020 Erythrocyte distribution width (RBC) [Ratio] 14.7 % High 11.5-14.5 [facility] Comment on above: Performed By: #### B MP3, HEMOG, MG3 ####[address] [place], [place] Hematocrit (Bld) [Volume fraction] 20.0 % Low 35.0-47.0 [facility] Comment on above: Performed By: #### B MP3, HEMOG, MG3 ####[address] [place], [place] Hemoglobin (Bld) [Mass/Vol] 6.6 g/dL Critically low 11.7-16.0 [facility] Comment on above: Result Comment: REPE ATED Performed By: #### B MP3, HEMOG, MG3 ####[address] [place] MCH (RBC) [Entitic mass] 29.9 pg Normal 26.0-34.0 [facility] Comment on above: Performed By: #### Jacek HORNER HEMOG, MG3 ####[address] [place] MCHC 33.2 % Normal 32.0-36.0 [facility] Comment on above: Performed By: #### Jacek ALBRIGHT3, HEMOG, MG3 ####[address] [place] MCV (RBC) [Entitic vol] 90.0 fL Normal 79.0-98.0 [facility] Comment on above: Performed By: #### Jacek HORNER HEMOG, MG3 ####[address] Platelet mean volume (Bld) [Entitic vol] 9.1 fL Normal 7.4-10.4 [facility] Comment on above: Performed By: #### Jacek HORNER HEMOG, MG3 ####[address] Platelets (Bld) [#/Vol] 238 10*3/uL Normal 140-440 [facility] Comment on above: Performed By: #### Jacek HORNER, HEMOG, MG3 ####[address] RBC (Bld) [#/Vol] 2.22 10*6/uL Low 3.80-5.20 [facility] Comment on above: Performed By: #### Jacek MP3, HEMOG, MG3 ####[address] [place], [place] WBC (Bld) [#/Vol] 14.5 10*3/uL High 3.6-10.7 [facility] Comment on above: Performed By: #### Jacek MP3, HEMOG, MG3 ####[address] Leukodepleted Red Cellson Leukodepleted Red Cells Normal [facility] Comment on above: Performed By: #### T SGL ####[facility]#### LRC ####[address] [address] Magnesiumon 12-23-2020 Magnesium [Mass/Vol] 2.2 mg/dL Normal 1.6-2.3 [facility] Comment on above: Performed By: #### B MP3, HEMOG, MG3 ####[address] [place] [address] Magnesium [Mass/Vol] 2.2 mg/dL 1.6 - 2 .3 mg/dL [facility] Panel Informationon 12-23 Radiology Study observation (narrative) [facility] Work Phone: [phone] [facility] Phosphoruson 12-23-2020 Phosphate [Mass/Vol] 2.7 mg/dL Normal 2.5-4.5 [facility] Comment on above: Performed By: #### P HOS3 ####[address] [place] [address] XR ABDOMEN (KUB) (SINGLE AP VIEW)on 12-23-2020 [facility] RAD [facility] Work Phone: [facility] Work Phone: XR CHEST PORTABLEon 12-24-19 [facility] RAD [facility] Work Phone: [facility] Work Phone: Arterial Blood Gaseson 12-22 FIO2 No data Normal [facility] Comment on above: Performed By: #### H EMOG, BMP3M, ICA, ABG ####[address] [place] [address] CO2 [Moles/Vol] 23.7 mmol/L Normal 23.0-27.0 [facility] Comment on above: Performed By: #### H EMOG, BMP3M, ICA, ABG ####[address] [place] [address] HCO3 (Bld) [Moles/Vol] 22.2 mmol/L Normal 21.0-25.0 [facility] Comment on above: Performed By: #### H EMOG, BMP3M, ICA, ABG ####[address] Hemoglobin (Bld) [Mass/Vol] 6.8 g/dL Normal ScreenOnly [facility] Comment on above: Performed By: #### H EMOG, BMP3M, ICA, ABG ####[address] Oxygen (Bld) [Partial pressure] 121.7 mm[Hg] High 80.0-100.0 [facility] Comment on above: Performed By: #### H EMOG, BMP3M, ICA, ABG ####[address] Oxygen saturation in Blood 98.1 % Normal 95.0-100.0 [facility] Comment on above: Performed By: #### H EMOG, BMP3M, ICA, ABG ####[address] pCO2 48.4 mm[Hg] High 35.0-45.0 [facility] Comment on above: Performed By: #### H EMOG, BMP3M, ICA, ABG ####[address] pH 7.280 Low 7.350-7.450 [facility] Comment on above: Performed By: #### H EMOG, BMP3M, ICA, ABG ####[address] Std Base Excess -4.2 mmol/L Low -3.0-3.0 [facility] Comment on above: Performed By: #### H EMOG, BMP3M, ICA, ABG ####[address] CO2 [Moles/Vol] 24.0 mmol/L Normal 23.0-27.0 [facility] Comment on above: Performed By: #### H EMDMiguel Ángel ABG, BMP3 ####[address] HCO3 (Bld) [Moles/Vol] 23.0 mmol/L Normal 21.0-25.0 [facility] Comment on above: Performed By: #### H EMDMiguel Ángel ABG, BMP3 ####[address] Hemoglobin (Bld) [Mass/Vol] 9.5 g/dL Normal ScreenOnly [facility] Comment on above: Performed By: #### H CURLY ABG, BMP3 ####[address] Oxygen (Bld) [Partial pressure] 84.0 mm[Hg] Normal 80.0-100.0 [facility] Comment on above: Performed By: #### H CURLY ABG, BMP3 ####[address] Oxygen saturation in Blood 96.7 % Normal 95.0-100.0 [facility] Comment on above: Performed By: #### H CURLY ABG, BMP3 ####[address] pCO2 32.4 mm[Hg] Low 35.0-45.0 [facility] Comment on above: Performed By: #### H CURLY ABG, BMP3 ####[address] pH 7.469 High 7.350-7.450 [facility] Comment on above: Performed By: #### H EMDMiguel Ángel, ABG, BMP3 ####[address] Std Base Excess -0.3 mmol/L Normal -3.0-3.0 [facility] Comment on above: Performed By: #### H EMDF, ABG, BMP3 ####[address] [place] [address] FIO2 No data Normal [facility] Comment on above: Performed By: #### H EMDF, ABG, ZACH3 ####[address] [address] BLOOD GAS, ARTERIALon 2020 Base Excess, Arterial -4.2 mmol/L Low -3.0 - 3.0 mmol/L [facility] CO2 [Moles/Vol] 23.7 mmol/L 23.0 - 27.0 mmol/L [facility] FIO2 Arterial No data [facility] HCO3 (Bld) [Moles/Vol] 22.2 mmol/L 21.0 - 25.0 mmol/L [facility] Hemoglobin (Bld) [Mass/Vol] 6.8 g/dL ScreenOnly [facility] Oxygen saturation in Blood 98.1 % 95.0 - 100.0 % [facility] pCO2, Arterial 48.4 mm[Hg] High 35.0 - 45.0 mm[Hg] [facility] pH, Arterial 7.280 Low [facility] pO2, Arterial 121.7 mm[Hg] High 80.0 - 100.0 mm[Hg] [facility] Base Excess, Arterial -0.3 mmol/L -3.0 - 3.0 mmol/L [facility] CO2 [Moles/Vol] 24 mmol/L 23.0 - 27.0 mmol/L [facility] FIO2 Arterial No data [facility] HCO3 (Bld) [Moles/Vol] 23.0 mmol/L 21.0 - 25.0 mmol/L [facility] Hemoglobin (Bld) [Mass/Vol] 9.5 g/dL ScreenOnly [facility] Interpretation and review of laboratory results Abnormal [facility] Oxygen saturation in Blood 96.7 % 95.0 - 100.0 % [facility] pCO2, Arterial 32.4 mm[Hg] Low 35.0 - 45.0 mm[Hg] [facility] pH, Arterial 7.469 High [facility] pO2, Arterial 84.0 mm[Hg] 80.0 - 100.0 mm[Hg] [facility] Basic Metabolic Panelon Anion gap [Moles/Vol] 5 mmol/L Normal 3-13 [facility] Comment on above: Performed By: #### H EMOG, BMP3M, ICA, ABG ####[id number] [place], [place] Calcium [Mass/Vol] 7.5 mg/dL Low 8.4-10.4 [facility] Comment on above: Performed By: #### H EMOG, BMP3M, ICA, ABG ####[address] [place], [place] CO2 [Moles/Vol] 22 mmol/L Normal 22-30 [facility] Comment on above: Performed By: #### H EMOG, BMP3M, ICA, ABG ####[address] [place], [place] Glucose [Mass/Vol] 109 mg/dL High 70-100 [facility] Comment on above: Performed By: #### H EMOG, BMP3M, ICA, ABG ####[address] [place], [place] Urea nitrogen [Mass/Vol] 15 mg/dL Normal 9-20 [facility] Comment on above: Performed By: #### H EMOG, BMP3M, ICA, ABG ####[address] [place], [place] Creatinine [Mass/Vol] 0.62 mg/dL Normal 0.52-1.25 [facility] Comment on above: Performed By: #### H EMOG, BMP3M, ICA, ABG ####[address] [place], [place] eGFR OTHER > 90.0 Normal >60 [facility] Comment on above: Result Comment: KDIG O guidelines provide the following GFR categories:Stage GFR(ml/min/1.73 m2) TermsG1 >=90 Normal or highG2 60-89 Mildly decreased*G3a 45-59 Mildly to moderately ywwkhcahdG5b 30-44 Moderately to severely decreasedG4 15-29 Severely decreasedG5 <15 Kidney failure*Relative to young adult level.In the absence of evidence of kidney damage, neither GFRcategory G1 nor G2 fulfill the criteria for CKD.The CKD-EPI equation is validated in individuals 18 yearsof age and older. Currently the best equation forestimating glomerular filtration rate (GFR) from serumcreatinine in children is the Bedside Yu equation.It is less accurate in patients with extremes of musclemass, restriction of dietary protein, ingestion of creatine,extra-renal metabolism of creatinine, or treatment withmedications that affect renal tubular creatinine secretion. Performed By: #### H ZACH MAO3M, ICA, ABG ####[address] [place], [place] GFR/1.73 sq M.predicted among blacks MDRD (S/P/Bld) [Vol rate/Area] mL/min/{1.73_m2} Normal >60 [facility] Comment on above: Performed By: #### H DAYLIN, BMP3M, ICA, ABG ####[address] [place], [place] Chloride [Moles/Vol] 118 mmol/L High 98-107 [facility] Comment on above: Performed By: #### H DAYLIN, BMP3M, ICA, ABG ####[address] Potassium [Moles/Vol] 4.3 mmol/L Normal 3.5-5.1 [facility] Comment on above: Performed By: #### H DAYLIN, BMP3M, ICA, ABG ####[address] [place] [address] Sodium [Moles/Vol] 145 mmol/L Normal 135-145 [facility] Comment on above: Performed By: #### H EMOJoi, BMP3M, ICA, ABG ####[address] [place] [address] Anion gap [Moles/Vol] 1 mmol/L Low 3-13 [facility] Comment on above: Performed By: #### H EMDF ABJoi, BMP3 ####[address] [place] [address] Calcium [Mass/Vol] 7.5 mg/dL Low 8.4-10.4 [facility] Comment on above: Performed By: #### H CURLY ABG, BMP3 ####[facility] [place] [address] CO2 [Moles/Vol] 23 mmol/L Normal 22-30 [facility] Comment on above: Performed By: #### H EMDF, ABG, BMP3 ####[facility] [place] [address] Glucose [Mass/Vol] 113 mg/dL High 70-100 [facility] Comment on above: Performed By: #### H EMDF, ABG, BMP3 ####[address] [place] [address] Urea nitrogen [Mass/Vol] 15 mg/dL Normal 9-20 [facility] Comment on above: Performed By: #### H EMDF, ABG, BMP3 ####[address] [place] [address] Creatinine [Mass/Vol] 0.65 mg/dL Normal 0.52-1.25 [facility] Comment on above: Performed By: #### H EMDF, ABG, BMP3 ####[address] [place] [address] eGFR OTHER > 90.0 Normal >60 [facility] Comment on above: Result Comment: KDIG O guidelines provide the following GFR categories:Stage GFR(ml/min/1.73 m2) TermsG1 >=90 Normal or highG2 60-89 Mildly decreased*G3a 45-59 Mildly to moderately vlsuhjdgbY0y 30-44 Moderately to severely decreasedG4 15-29 Severely decreasedG5 <15 Kidney failure*Relative to young adult level.In the absence of evidence of kidney damage, neither GFRcategory G1 nor G2 fulfill the criteria for CKD.The CKD-EPI equation is validated in individuals 18 yearsof age and older. Currently the best equation forestimating glomerular filtration rate (GFR) from serumcreatinine in children is the Bedside Yu equation.It is less accurate in patients with extremes of musclemass, restriction of dietary protein, ingestion of creatine,extra-renal metabolism of creatinine, or treatment withmedications that affect renal tubular creatinine secretion. Performed By: #### H EMDF, ABG, BMP3 ####[facility] [id number] [place], [place] GFR/1.73 sq M.predicted among blacks MDRD (S/P/Bld) [Vol rate/Area] mL/min/{1.73_m2} Normal >60 [facility] Comment on above: Performed By: #### H JIGAR RAWLS, BMP3 ####[facility] [place], [place] Chloride [Moles/Vol] 117 mmol/L High 98-107 [facility] Comment on above: Performed By: #### H JIGAR RAWLS, BMP3 ####[address] [place], [place] Potassium [Moles/Vol] 3.4 mmol/L Low 3.5-5.1 [facility] Comment on above: Performed By: #### H JIGAR RAWLS, BMP3 ####[address] [place], [place] Sodium [Moles/Vol] 141 mmol/L Normal 135-145 [facility] Comment on above: Performed By: #### H JIGAR RAWLS, BMP3 ####[address] [place], [place] Anion gap [Moles/Vol] 1 mmol/L Low 3 - 13 mmol/L [facility] Calcium [Mass/Vol] 7.5 mg/dL Low 8.4 - 10. 4 mg/dL [facility] Chloride [Moles/Vol] 117 mmol/L High 98 - 10 7 mmol/L [facility] CO2 [Moles/Vol] 23 mmol/L 22 - 30 mmol/L [facility] Creatinine [Mass/Vol] 0.65 mg/dL 0.52 - 1.25 mg/dL [facility] EGFR IF NonAfrican Belizean >90.0 >60 mL/min [facility] GFR/1.73 sq M.predicted among blacks MDRD (S/P/Bld) [Vol rate/Area] mL/min/{1.73_m2} >60 mL/min [facility] Glucose [Mass/Vol] 113 mg/dL High 70 - 100 mg/dL [facility] Interpretation and review of laboratory results Abnormal [facility] Potassium [Moles/Vol] 3.4 mmol/L Low 3.5 - 5.1 mmol/L [facility] Sodium [Moles/Vol] 141 mmol/L 135 - 145 mmol/L [facility] Urea nitrogen (BldV) [Mass/Vol] 15 mg/dL 9 - 20 mg/dL [facility] Basic Metabolic Panel w/ Ref ruslan to MGon 12-22-2020 Anion gap [Moles/Vol] 5 mmol/L 3 - 13 mmol/L [facility] Calcium [Mass/Vol] 7.5 mg/dL Low 8.4 - 10. 4 mg/dL [facility] Chloride [Moles/Vol] 118 mmol/L High 98 - 10 7 mmol/L [facility] CO2 [Moles/Vol] 22 mmol/L 22 - 30 mmol/L [facility] Creatinine [Mass/Vol] 0.62 mg/dL 0.52 - 1.25 mg/dL [facility] EGFR IF NonAfrican Belizean >90.0 >60 mL/min [facility] GFR/1.73 sq M.predicted among blacks MDRD (S/P/Bld) [Vol rate/Area] mL/min/{1.73_m2} >60 mL/min [facility] Glucose [Mass/Vol] 109 mg/dL High 70 - 100 mg/dL [facility] Interpretation and review of laboratory results Abnormal [facility] Potassium [Moles/Vol] 4.3 mmol/L 3.5 - 5.1 mmol/L [facility] Sodium [Moles/Vol] 145 mmol/L 135 - 145 mmol/L [facility] Urea nitrogen (BldV) [Mass/Vol] 15 mg/dL 9 - 20 mg/dL [facility] CBCon 12-22-2020 Hematocrit (Bld) [Volume fraction] 22.9 % Low 35.0 - 47.0 % [facility] Hemoglobin.gastrointe stinal spec 1 Ql (Stl) 7.4 g/dL Low 11.7 - 16.0 g/dL [facility] MCH (RBC) [Entitic mass] 29.5 pg 26.0 - 34.0 pg [facility] MCHC (RBC) [Mass/Vol] 32.2 % 32.0 - 36.0 % [facility] MCV (RBC) [Entitic vol] 91.5 fL 79.0 - 98.0 fL [facility] Platelet distribution width (Bld) [Ratio] 14.9 % High 11.5 - 14.5 % [facility] Platelet mean volume (Bld) [Entitic vol] 8.7 fL 7.4 - 10.4 fL [facility] Platelets (Bld) [#/Vol] 215 10*3/uL 140 - 440 10*3/uL [facility] RBC (Bld) [#/Vol] 2.51 10*6/uL Low 3.80 - 5.2 0 10*6/uL [facility] WBC (Bld) [#/Vol] 18.1 10*3/uL High 3.6 - 10.7 10*3/uL [facility] CBC Auto Differentialon Absolute Baso # 0.1 10*3/uL 0.0 - 0.2 10*3/uL [facility] Absolute Neut # 13.6 10*3/uL High 1.8 - 7.0 10*3/uL [facility] Basophils/100 WBC (Bld) 0.3 % 0.0 - 2.0 % [facility] Eosinophils (Bld) [#/Vol] 0.0 10*3/uL 0.0 - 0.5 10*3/uL [facility] Eosinophils/100 WBC (Bld) 0.0 % Low 1.0 - 6.0 % [facility] Granulocytes/100 WBC (Bld) 88.4 % High 40.0 - 80.0 % [facility] Hematocrit (Bld) [Volume fraction] 26.8 % Low 35.0 - 47.0 % [facility] Hemoglobin.gastrointe stinal spec 1 Ql (Stl) 9.0 g/dL Low 11.7 - 16.0 g/dL [facility] Interpretation and review of laboratory results Abnormal [facility] Lymphocytes (Bld) [#/Vol] 1.1 10*3/uL 1.0 - 4.3 10*3/uL [facility] Lymphocytes/100 WBC (Bld) 6.8 % Low 20.0 - 40.0 % [facility] MCH (RBC) [Entitic mass] 29.8 pg 26.0 - 34.0 pg [facility] MCHC (RBC) [Mass/Vol] 33.6 % 32.0 - 36.0 % [facility] MCV (RBC) [Entitic vol] 88.7 fL 79.0 - 98.0 fL [facility] Monocytes (Bld) [#/Vol] 0.7 10*3/uL 0.0 - 0.8 10*3/uL [facility] Monocytes/100 WBC (Bld) 4.5 % 2.0 - 10.0 % [facility] Platelet distribution width (Bld) [Ratio] 14.7 % High 11.5 - 14.5 % [facility] Platelet mean volume (Bld) [Entitic vol] 9.0 fL 7.4 - 10.4 fL [facility] Platelets (Bld) [#/Vol] 217 10*3/uL 140 - 440 10*3/uL [facility] RBC (Bld) [#/Vol] 3.02 10*6/uL Low 3.80 - 5.2 0 10*6/uL [facility] WBC (Bld) [#/Vol] 15.4 10*3/uL High 3.6 - 10.7 10*3/uL [facility] CR Pelvis Complete Minimum 3 Viewson 12-22-2020 CR Pelvis Complete Minimum 3 Views Normal [facility] CR Tibia/Fibula 2 Views Righ ton 12-22-2020 CR Tibia/Fibula 2 Views Right Normal [facility] CT HEAD WO CONTRASTon 2020 [facility] RAD [facility] Work Phone: [facility] Work Phone: CT Head or Brain w/o Contras ton 12-22-2020 CT Head or Brain w/o Contrast Normal [facility] Calcium, Ionizedon Ionized Ca 4.20 mg/dL Low 4.30 - 5.20 mg/dL [facility] pH (Bld) 7.32 [pH] [facility] Calcium,Ionizedon 12-22-2020 Ionized Ca,Measured 4.20 mg/dL Low 4.30-5.20 [facility] Comment on above: Performed By: #### H EMOJoi, BMP3M, ICA, ABG ####[facility] [place] [address] pH, Ionized Calcium 7.32 Normal 7.31-7.46 [facility] Comment on above: Performed By: #### H EMOG, BMP3M, ICA, ABG ####[address] HCG Qualitative, Serumon hCG Qual Negative [facility] Hemogramon 12-22-2020 Erythrocyte distribution width (RBC) [Ratio] 14.9 % High 11.5-14.5 [facility] Comment on above: Performed By: #### H EMOG, BMP3M, ICA, ABG ####[address] Hematocrit (Bld) [Volume fraction] 22.9 % Low 35.0-47.0 [facility] Comment on above: Performed By: #### H EMOG, BMP3M, ICA, ABG ####[address] Hemoglobin (Bld) [Mass/Vol] 7.4 g/dL Low 11.7-16.0 [facility] Comment on above: Performed By: #### H EMOG, BMP3M, ICA, ABG ####[address] MCH (RBC) [Entitic mass] 29.5 pg Normal 26.0-34.0 [facility] Comment on above: Performed By: #### H EMOG, BMP3M, ICA, ABG ####[address] MCHC 32.2 % Normal 32.0-36.0 [facility] Comment on above: Performed By: #### H EMOG, BMP3M, ICA, ABG ####[address] MCV (RBC) [Entitic vol] 91.5 fL Normal 79.0-98.0 [facility] Comment on above: Performed By: #### H EMOG, BMP3M, ICA, ABG ####[address] Platelet mean volume (Bld) [Entitic vol] 8.7 fL Normal 7.4-10.4 [facility] Comment on above: Performed By: #### H EMOG, BMP3M, ICA, ABG ####[address] [place], [place] Platelets (Bld) [#/Vol] 215 10*3/uL Normal 140-440 [facility] Comment on above: Performed By: #### H EMOG, BMP3M, ICA, ABG ####[address] RBC (Bld) [#/Vol] 2.51 10*6/uL Low 3.80-5.20 [facility] Comment on above: Performed By: #### H EMOG, BMP3M, ICA, ABG ####[address] WBC (Bld) [#/Vol] 18.1 10*3/uL High 3.6-10.7 [facility] Comment on above: Performed By: #### H EMOG, BMP3M, ICA, ABG ####[address] Hemogram w/ Autodiffon 12-22 Abs Baso Cnt 0.1 10*3/uL Normal 0.0-0.2 [facility] Comment on above: Performed By: #### H EMDF, ABG, BMP3 ####[address] [place], [place] Abs Neutrophile Cnt 13.6 10*3/uL High 1.8-7.0 [facility] Comment on above: Performed By: #### H EMDF, ABG, BMP3 ####[address] Basophils/100 WBC (Bld) 0.3 % Normal 0.0-2.0 [facility] Comment on above: Performed By: #### H EMDF, ABG, BMP3 ####[address] Eosinophils (Bld) [#/Vol] 0.0 10*3/uL Normal 0.0-0.5 [facility] Comment on above: Performed By: #### H CURLY ABJoi, BMP3 ####[address] Eosinophils/100 WBC (Bld) 0.0 % Low 1.0-6.0 [facility] Comment on above: Performed By: #### H EMDMiguel Ángel, ABG, BMP3 ####[address] Erythrocyte distribution width (RBC) [Ratio] 14.7 % High 11.5-14.5 [facility] Comment on above: Performed By: #### H EMDF, ABG, BMP3 ####[address] Granulocytes/100 WBC (Bld) 88.4 % High 40.0-80.0 [facility] Comment on above: Performed By: #### H EMDF, ABG, BMP3 ####[address] Hematocrit (Bld) [Volume fraction] 26.8 % Low 35.0-47.0 [facility] Comment on above: Performed By: #### H EMDF, ABG, BMP3 ####[address] Hemoglobin (Bld) [Mass/Vol] 9.0 g/dL Low 11.7-16.0 [facility] Comment on above: Performed By: #### H EMDF, ABG, BMP3 ####[address] Lymphocytes (Bld) [#/Vol] 1.1 10*3/uL Normal 1.0-4.3 [facility] Comment on above: Performed By: #### H EMDF, ABG, BMP3 ####[address] Lymphocytes/100 WBC (Bld) 6.8 % Low 20.0-40.0 [facility] Comment on above: Performed By: #### H JIGAR RAWLS, BMP3 ####[address] MCH (RBC) [Entitic mass] 29.8 pg Normal 26.0-34.0 [facility] Comment on above: Performed By: #### H JIGAR RAWLS, BMP3 ####[address] MCHC 33.6 % Normal 32.0-36.0 [facility] Comment on above: Performed By: #### H JIGAR RAWLS, BMP3 ####[address] MCV (RBC) [Entitic vol] 88.7 fL Normal 79.0-98.0 [facility] Comment on above: Performed By: #### H JIGAR RAWLS, BMP3 ####[address] Monocytes (Bld) [#/Vol] 0.7 10*3/uL Normal 0.0-0.8 [facility] Comment on above: Performed By: #### H JIGAR RAWLS, BMP3 ####[address] Monocytes/100 WBC (Bld) 4.5 % Normal 2.0-10.0 [facility] Comment on above: Performed By: #### H CURLY ABJoi, BMP3 ####[address] Platelet mean volume (Bld) [Entitic vol] 9.0 fL Normal 7.4-10.4 [facility] Comment on above: Performed By: #### H EMDMiguel Ángel ABG, BMP3 ####[address] Platelets (Bld) [#/Vol] 217 10*3/uL Normal 140-440 [facility] Comment on above: Performed By: #### H CURLY ABG, BMP3 ####[address] [place], [place] RBC (Bld) [#/Vol] 3.02 10*6/uL Low 3.80-5.20 [facility] Comment on above: Performed By: #### H EMDF, ABG, BMP3 ####[address] [place], [place] WBC (Bld) [#/Vol] 15.4 10*3/uL High 3.6-10.7 [facility] Comment on above: Performed By: #### H EMDF, ABG, BMP3 ####[address] Laboratory - Blood bankon ABO and Rh group Nom (Bld) 6200 [facility] No Panel Informationon 12-22 Radiology Study observation (narrative) [facility] Work Phone: Dispense Status Blood Bank transfused [facility] Expiration Date [id number] [facility] Product Code Blood Bank [id number] [facility] Interpretation and review of laboratory results Abnormal [facility] Op Noteon 12-22-2020 Op Note Normal [facility] PREPARE RBC (CROSSMATCH)on 02-22-2020 Blood product unit ID (Dose) [#] [id number] [facility] Blood product unit ID (Dose) [#] [id number] [facility] Procalcitoninon 12-22-2020 Procalcitonin 0.29 ng/mL High 0.00-0.09 [facility] Comment on above: Performed By: #### P MICHELLE ####[address] Interpretation See Below Normal [facility] Work Phone: Comment on above: Result Comment: PCT <0.50 = Low risk of severe sepsis and/or septic shock.PCT >2.00 = High risk of severe sepsis and/or septic shock. Performed By: #### P MICHELLE ####[address] [place] [address] Interpretation and review of laboratory results Abnormal [facility] Work Phone: Procalcitonin 0.29 ng/mL High 0.00 - 0.09 ng/mL [facility] Work Phone: [facility] Work Phone: TS GELon 12-22-2020 TS GEL ABO Group: A Rh, Gel: POS Antibody Screen Gel: NEG Normal [facility] Comment on above: Performed By: #### T SGL ####[facility]#### LRC ####[address] [address] TYPE AND SCREENon 12-22-2020 ABO Grouping A [facility] Rh Type Positive [facility] XR PELVIS (MIN 3 VIEWS)on [facility] RAD [facility] Work Phone: XR PELVIS (MIN 3 VIEWS)Order ed By: Cruz Velasquez on 12-22-2020 [facility] Work Phone: XR TIBIA FIBULA RIGHT (2 VIE WS)on 12-22-2020 [facility] RAD [facility] Work Phone: [facility] Work Phone: hCG Qual Pregon 12-22-2020 hCG Qual Preg Negative Normal [facility] Comment on above: Result Comment: Refe rence Range: NEGATIVEEffective 04/30/2019, the reference interval for thequalitative test has been updated. This test detectshCG at concentrations of 10 mIU/L or greater in serum. Performed By: #### Q WAL2 ####[address] [place] [address] Arterial Blood Gaseson 12-21 CO2 [Moles/Vol] 20.9 mmol/L Low 23.0-27.0 [facility] Comment on above: Performed By: #### A BG, BMP3, HEMDF ####[address] [place], [place] HCO3 (Bld) [Moles/Vol] 19.9 mmol/L Low 21.0-25.0 [facility] Comment on above: Performed By: #### A BG, BMP3, HEMDF ####[address] [place], [place] Hemoglobin (Bld) [Mass/Vol] 10.7 g/dL Normal ScreenOnly [facility] Comment on above: Performed By: #### A BG, BMP3, HEMDF ####[address] Oxygen (Bld) [Partial pressure] 94.9 mm[Hg] Normal 80.0-100.0 [facility] Comment on above: Performed By: #### A BG, BMP3, HEMDF ####[address] Oxygen saturation in Blood 97.4 % Normal 95.0-100.0 [facility] Comment on above: Performed By: #### A BG, BMP3, HEMDF ####[address] pCO2 34.1 mm[Hg] Low 35.0-45.0 [facility] Comment on above: Performed By: #### A BG, BMP3, HEMDF ####[address] pH 7.384 Normal 7.350-7.450 [facility] Comment on above: Performed By: #### A BG, BMP3, HEMDF ####[address] Std Base Excess -4.5 mmol/L Low -3.0-3.0 [facility] Comment on above: Performed By: #### A BG, BMP3, HEMDF ####[address] FIO2 No data Normal [facility] Comment on above: Performed By: #### A BG, BMP3, HEMDF ####[address] [address] BLOOD GAS, ARTERIALon 2020 Base Excess, Arterial -4.5 mmol/L Low -3.0 - 3.0 mmol/L [facility] CO2 [Moles/Vol] 20.9 mmol/L Low 23.0 - 27.0 mmol/L [facility] FIO2 Arterial No data [facility] HCO3 (Bld) [Moles/Vol] 19.9 mmol/L Low 21.0 - 25.0 mmol/L [facility] Hemoglobin (Bld) [Mass/Vol] 10.7 g/dL ScreenOnly [facility] Interpretation and review of laboratory results Abnormal [facility] Oxygen saturation in Blood 97.4 % 95.0 - 100.0 % [facility] pCO2, Arterial 34.1 mm[Hg] Low 35.0 - 45.0 mm[Hg] [facility] pH, Arterial 7.384 [facility] pO2, Arterial 94.9 mm[Hg] 80.0 - 100.0 mm[Hg] [facility] Basic Metabolic Panelon Anion gap [Moles/Vol] 1 mmol/L Low 3-13 [facility] Comment on above: Performed By: #### A BG, BMP3, HEMDF ####[facility] [place], [place] Calcium [Mass/Vol] 7.4 mg/dL Low 8.4-10.4 [facility] Comment on above: Performed By: #### A BG, BMP3, HEMDF ####[facility] [place], [place] CO2 [Moles/Vol] 20 mmol/L Low 22-30 [facility] Comment on above: Performed By: #### A BG, BMP3, HEMDF ####[facility] [employer] [id number] [place], [place] Glucose [Mass/Vol] 120 mg/dL High 70-100 [facility] Comment on above: Performed By: #### A BG, BMP3, HEMDF ####[address] [place], [place] Urea nitrogen [Mass/Vol] 17 mg/dL Normal 9-20 [facility] Comment on above: Performed By: #### A BG, BMP3, HEMDF ####[facility] [place], [place] Creatinine [Mass/Vol] 0.67 mg/dL Normal 0.52-1.25 [facility] Comment on above: Performed By: #### A BG, BMP3, HEMDF ####[address] [place], [place] eGFR OTHER > 90.0 Normal >60 [facility] Comment on above: Result Comment: KDIG O guidelines provide the following GFR categories:Stage GFR(ml/min/1.73 m2) TermsG1 >=90 Normal or highG2 60-89 Mildly decreased*G3a 45-59 Mildly to moderately llbkdmqhsM2b 30-44 Moderately to severely decreasedG4 15-29 Severely decreasedG5 <15 Kidney failure*Relative to young adult level.In the absence of evidence of kidney damage, neither GFRcategory G1 nor G2 fulfill the criteria for CKD.The CKD-EPI equation is validated in individuals 18 yearsof age and older. Currently the best equation forestimating glomerular filtration rate (GFR) from serumcreatinine in children is the Bedside Yu equation.It is less accurate in patients with extremes of musclemass, restriction of dietary protein, ingestion of creatine,extra-renal metabolism of creatinine, or treatment withmedications that affect renal tubular creatinine secretion. Performed By: #### A BG, BMP3, HEMDF ####[id number] [place], [place] GFR/1.73 sq M.predicted among blacks MDRD (S/P/Bld) [Vol rate/Area] mL/min/{1.73_m2} Normal >60 [facility] Comment on above: Performed By: #### A BG, BMP3, HEMDF ####[facility] [employer] [id number] [place], [place] Chloride [Moles/Vol] 119 mmol/L High 98-107 [facility] Comment on above: Performed By: #### A BG, BMP3, HEMDF ####[facility] [employer] [id number] [place], [place] Potassium [Moles/Vol] 3.6 mmol/L Normal 3.5-5.1 [facility] Comment on above: Performed By: #### A BG, BMP3, HEMDF ####[facility] [place], [place] Sodium [Moles/Vol] 141 mmol/L Normal 135-145 [facility] Comment on above: Performed By: #### A BG, BMP3, HEMDF ####[facility] [place], [place] Anion gap [Moles/Vol] 1 mmol/L Low 3 - 13 mmol/L [facility] Calcium [Mass/Vol] 7.4 mg/dL Low 8.4 - 10. 4 mg/dL [facility] Chloride [Moles/Vol] 119 mmol/L High 98 - 10 7 mmol/L [facility] CO2 [Moles/Vol] 20 mmol/L Low 22 - 30 mmol/L [facility] Creatinine [Mass/Vol] 0.67 mg/dL 0.52 - 1.25 mg/dL [facility] EGFR IF NonAfrican Belizean >90.0 >60 mL/min [facility] GFR/1.73 sq M.predicted among blacks MDRD (S/P/Bld) [Vol rate/Area] mL/min/{1.73_m2} >60 mL/min [facility] Glucose [Mass/Vol] 120 mg/dL High 70 - 100 mg/dL [facility] Interpretation and review of laboratory results Abnormal [facility] Potassium [Moles/Vol] 3.6 mmol/L 3.5 - 5.1 mmol/L [facility] Sodium [Moles/Vol] 141 mmol/L 135 - 145 mmol/L [facility] Urea nitrogen (BldV) [Mass/Vol] 17 mg/dL 9 - 20 mg/dL [facility] CBC Auto Differentialon 11-0 Absolute Baso # 0.1 10*3/uL 0.0 - 0.2 10*3/uL [facility] Absolute Neut # 13.5 10*3/uL High 1.8 - 7.0 10*3/uL [facility] Basophils/100 WBC (Bld) 0.4 % 0.0 - 2.0 % [facility] Eosinophils (Bld) [#/Vol] 0.0 10*3/uL 0.0 - 0.5 10*3/uL [facility] Eosinophils/100 WBC (Bld) 0.0 % Low 1.0 - 6.0 % [facility] Granulocytes/100 WBC (Bld) 86.2 % High 40.0 - 80.0 % [facility] Hematocrit (Bld) [Volume fraction] 25.7 % Low 35.0 - 47.0 % [facility] Hemoglobin.gastrointe stinal spec 1 Ql (Stl) 8.5 g/dL Low 11.7 - 16.0 g/dL [facility] Interpretation and review of laboratory results Abnormal [facility] Lymphocytes (Bld) [#/Vol] 1.5 10*3/uL 1.0 - 4.3 10*3/uL [facility] Lymphocytes/100 WBC (Bld) 9.5 % Low 20.0 - 40.0 % [facility] MCH (RBC) [Entitic mass] 29.4 pg 26.0 - 34.0 pg [facility] MCHC (RBC) [Mass/Vol] 33.2 % 32.0 - 36.0 % [facility] MCV (RBC) [Entitic vol] 88.6 fL 79.0 - 98.0 fL [facility] Monocytes (Bld) [#/Vol] 0.6 10*3/uL 0.0 - 0.8 10*3/uL [facility] Monocytes/100 WBC (Bld) 3.9 % 2.0 - 10.0 % [facility] Platelet distribution width (Bld) [Ratio] 14.4 % 11.5 - 14.5 % [facility] Platelet mean volume (Bld) [Entitic vol] 9.0 fL 7.4 - 10.4 fL [facility] Platelets (Bld) [#/Vol] 176 10*3/uL 140 - 440 10*3/uL [facility] RBC (Bld) [#/Vol] 2.90 10*6/uL Low 3.80 - 5.2 0 10*6/uL [facility] WBC (Bld) [#/Vol] 15.7 10*3/uL High 3.6 - 10.7 10*3/uL [facility] Absolute Baso # 0.1 10*3/uL 0.0 - 0.2 10*3/uL [facility] Absolute Neut # 14.8 10*3/uL High 1.8 - 7.0 10*3/uL [facility] Basophils/100 WBC (Bld) 0.4 % 0.0 - 2.0 % [facility] Eosinophils (Bld) [#/Vol] 0.0 10*3/uL 0.0 - 0.5 10*3/uL [facility] Eosinophils/100 WBC (Bld) 0.1 % Low 1.0 - 6.0 % [facility] Granulocytes/100 WBC (Bld) 83.9 % High 40.0 - 80.0 % [facility] Hematocrit (Bld) [Volume fraction] 29.7 % Low 35.0 - 47.0 % [facility] Hemoglobin.gastrointe stinal spec 1 Ql (Stl) 10.1 g/dL Low 11.7 - 16.0 g/dL [facility] Interpretation and review of laboratory results Abnormal [facility] Lymphocytes (Bld) [#/Vol] 2.1 10*3/uL 1.0 - 4.3 10*3/uL [facility] Lymphocytes/100 WBC (Bld) 12.0 % Low 20.0 - 40.0 % [facility] MCH (RBC) [Entitic mass] 30.0 pg 26.0 - 34.0 pg [facility] MCHC (RBC) [Mass/Vol] 33.9 % 32.0 - 36.0 % [facility] MCV (RBC) [Entitic vol] 88.4 fL 79.0 - 98.0 fL [facility] Monocytes (Bld) [#/Vol] 0.6 10*3/uL 0.0 - 0.8 10*3/uL [facility] Monocytes/100 WBC (Bld) 3.6 % 2.0 - 10.0 % [facility] Platelet distribution width (Bld) [Ratio] 15.0 % High 11.5 - 14.5 % [facility] Platelet mean volume (Bld) [Entitic vol] 9.3 fL 7.4 - 10.4 fL [facility] Platelets (Bld) [#/Vol] 166 10*3/uL 140 - 440 10*3/uL [facility] RBC (Bld) [#/Vol] 3.36 10*6/uL Low 3.80 - 5.2 0 10*6/uL [facility] WBC (Bld) [#/Vol] 17.6 10*3/uL High 3.6 - 10.7 10*3/uL [facility] CR Chest Portableon 12-22-19 CR Chest Portable Normal [facility] CR Chest Portable Normal [facility] System Hemogram w/ Autodiffon 12-21 Abs Baso Cnt 0.1 10*3/uL Normal 0.0-0.2 [facility] Comment on above: Performed By: #### H EMDF ####[address] Abs Neutrophile Cnt 13.5 10*3/uL High 1.8-7.0 [facility] Comment on above: Performed By: #### H EMDF ####[address] Basophils/100 WBC (Bld) 0.4 % Normal 0.0-2.0 [facility] Comment on above: Performed By: #### H EMDF ####[address] Eosinophils (Bld) [#/Vol] 0.0 10*3/uL Normal 0.0-0.5 [facility] Comment on above: Performed By: #### H EMDF ####[address] Eosinophils/100 WBC (Bld) 0.0 % Low 1.0-6.0 [facility] Comment on above: Performed By: #### H EMDF ####[address] Erythrocyte distribution width (RBC) [Ratio] 14.4 % Normal 11.5-14.5 [facility] Comment on above: Performed By: #### H EMDF ####[address] Granulocytes/100 WBC (Bld) 86.2 % High 40.0-80.0 [facility] Comment on above: Performed By: #### H EMDF ####[address] Hematocrit (Bld) [Volume fraction] 25.7 % Low 35.0-47.0 [facility] Comment on above: Performed By: #### H EMDF ####[address] Hemoglobin (Bld) [Mass/Vol] 8.5 g/dL Low 11.7-16.0 [facility] Comment on above: Performed By: #### H EMDF ####[address] Lymphocytes (Bld) [#/Vol] 1.5 10*3/uL Normal 1.0-4.3 [facility] Comment on above: Performed By: #### H EMDF ####[address] Lymphocytes/100 WBC (Bld) 9.5 % Low 20.0-40.0 [facility] Comment on above: Performed By: #### H EMDF ####[address] MCH (RBC) [Entitic mass] 29.4 pg Normal 26.0-34.0 [facility] Comment on above: Performed By: #### H EMDF ####[id number] [place], [place] MCHC 33.2 % Normal 32.0-36.0 [facility] Comment on above: Performed By: #### H EMDF ####[address] MCV (RBC) [Entitic vol] 88.6 fL Normal 79.0-98.0 [facility] Comment on above: Performed By: #### H EMDF ####[address] Monocytes (Bld) [#/Vol] 0.6 10*3/uL Normal 0.0-0.8 [facility] Comment on above: Performed By: #### H EMDF ####[address] Monocytes/100 WBC (Bld) 3.9 % Normal 2.0-10.0 [facility] Comment on above: Performed By: #### H EMDF ####[address] Platelet mean volume (Bld) [Entitic vol] 9.0 fL Normal 7.4-10.4 [facility] Comment on above: Performed By: #### H EMDF ####[address] Platelets (Bld) [#/Vol] 176 10*3/uL Normal 140-440 [facility] Comment on above: Performed By: #### H EMDF ####[address] RBC (Bld) [#/Vol] 2.90 10*6/uL Low 3.80-5.20 [facility] Comment on above: Performed By: #### H EMDF ####[address] WBC (Bld) [#/Vol] 15.7 10*3/uL High 3.6-10.7 [facility] Comment on above: Performed By: #### H EMDF ####[address] Abs Baso Cnt 0.1 10*3/uL Normal 0.0-0.2 [facility] Comment on above: Performed By: #### A BG, BMP3, HEMDF ####[address] Abs Neutrophile Cnt 14.8 10*3/uL High 1.8-7.0 [facility] Comment on above: Performed By: #### A BG, BMP3, HEMDF ####[address] [place], [place] Basophils/100 WBC (Bld) 0.4 % Normal 0.0-2.0 [facility] Comment on above: Performed By: #### A BG, BMP3, HEMDF ####[address] [place], [place] Eosinophils (Bld) [#/Vol] 0.0 10*3/uL Normal 0.0-0.5 [facility] Comment on above: Performed By: #### A BG, BMP3, HEMDF ####[address] [place], [place] Eosinophils/100 WBC (Bld) 0.1 % Low 1.0-6.0 [facility] Comment on above: Performed By: #### A BG, BMP3, HEMDF ####[address] [place], [place] Erythrocyte distribution width (RBC) [Ratio] 15.0 % High 11.5-14.5 [facility] Comment on above: Performed By: #### A BG, BMP3, HEMDF ####[address] Granulocytes/100 WBC (Bld) 83.9 % High 40.0-80.0 [facility] Comment on above: Performed By: #### A BG, BMP3, HEMDF ####[address] Hematocrit (Bld) [Volume fraction] 29.7 % Low 35.0-47.0 [facility] Comment on above: Performed By: #### A BG, BMP3, HEMDF ####[address] Hemoglobin (Bld) [Mass/Vol] 10.1 g/dL Low 11.7-16.0 [facility] Comment on above: Performed By: #### A BG, BMP3, HEMDF ####[address] Lymphocytes (Bld) [#/Vol] 2.1 10*3/uL Normal 1.0-4.3 [facility] Comment on above: Performed By: #### A BG, BMP3, HEMDF ####[address] Lymphocytes/100 WBC (Bld) 12.0 % Low 20.0-40.0 [facility] Comment on above: Performed By: #### A BG BMP3, HEMDF ####[address] [place], [place] MCH (RBC) [Entitic mass] 30.0 pg Normal 26.0-34.0 [facility] Comment on above: Performed By: #### A BG BMP3, HEMDF ####[address] MCHC 33.9 % Normal 32.0-36.0 [facility] Comment on above: Performed By: #### A BG BMP3, HEMDF ####[address] MCV (RBC) [Entitic vol] 88.4 fL Normal 79.0-98.0 [facility] Comment on above: Performed By: #### A BG BMP3, HEMDF ####[address] Monocytes (Bld) [#/Vol] 0.6 10*3/uL Normal 0.0-0.8 [facility] Comment on above: Performed By: #### A BG, BMP3, HEMDF ####[address] Monocytes/100 WBC (Bld) 3.6 % Normal 2.0-10.0 [facility] Comment on above: Performed By: #### A BG, BMP3, HEMDF ####[address] Platelet mean volume (Bld) [Entitic vol] 9.3 fL Normal 7.4-10.4 [facility] Comment on above: Performed By: #### A BG, BMP3, HEMDF ####[address] Platelets (Bld) [#/Vol] 166 10*3/uL Normal 140-440 [facility] Comment on above: Performed By: #### A BG, BMP3, HEMDF ####[address] [place] [address] RBC (Bld) [#/Vol] 3.36 10*6/uL Low 3.80-5.20 [facility] Comment on above: Performed By: #### A BG, BMP3, HEMDF ####[address] [place] [address] WBC (Bld) [#/Vol] 17.6 10*3/uL High 3.6-10.7 [facility] Comment on above: Performed By: #### A BG, BMP3, HEMDF ####[address] [place] [address] Laboratory - Blood bankon ABO and Rh group Nom (Bld) [address] [facility] Leukodepleted Red Cellson Leukodepleted Red Cells Normal [facility] Comment on above: Performed By: #### P RP, LRC, SDP, CR5 ####[address] [address]#### TSGL ####[facility] No Panel Informationon 12-21 Radiology Study observation (narrative) [facility] Work Phone: Dispense Status Blood Bank released [facility] Expiration Date [facility] Product Code Blood Bank [id number] [facility] PREPARE RBC (CROSSMATCH), 1 Unitson 12-21-2020 Blood product unit ID (Dose) [#] [id number] [facility] PREPARE RBC (CROSSMATCH), 2 Unitson 12-21-2020 Blood product unit ID (Dose) [#] [id number] [facility] Blood product unit ID (Dose) [#] [id number] [facility] Dispense Status Blood Bank transfused [facility] XR CHEST PORTABLEon 12-22-19 21 [facility] Work Phone: [facility] Work Phone: [facility] Work Phone: [facility] Work Phone: Arterial Blood Gaseson 12-20 CO2 [Moles/Vol] 19.9 mmol/L Low 23.0-27.0 [facility] Comment on above: Performed By: #### A BG ####[address] [place], [place] HCO3 (Bld) [Moles/Vol] 18.8 mmol/L Low 21.0-25.0 [facility] Comment on above: Performed By: #### A BG ####[address] [place], [place] Hemoglobin (Bld) [Mass/Vol] 7.7 g/dL Normal ScreenOnly [facility] Comment on above: Performed By: #### A BG ####[address] [place], [place] Oxygen (Bld) [Partial pressure] 104.5 mm[Hg] High 80.0-100.0 [facility] Comment on above: Performed By: #### A BG ####[address] [address] [place], [place] Oxygen saturation in Blood 97.6 % Normal 95.0-100.0 [facility] Comment on above: Performed By: #### A BG ####[address] [place], [place] pCO2 35.4 mm[Hg] Normal 35.0-45.0 [facility] Comment on above: Performed By: #### A BG ####[address] [place], [place] pH 7.344 Low 7.350-7.450 [facility] Comment on above: Performed By: #### A BG ####[address] [place], [place] Std Base Excess -6.3 mmol/L Low -3.0-3.0 [facility] Comment on above: Performed By: #### A BG ####[address] [place], [place] FIO2 No data Normal [facility] Comment on above: Performed By: #### A BG ####[address] [place], [place] CO2 [Moles/Vol] 21.9 mmol/L Low 23.0-27.0 [facility] Comment on above: Performed By: #### A BG, HEMDF, BMP3 ####[address] [place], [place] HCO3 (Bld) [Moles/Vol] 20.9 mmol/L Low 21.0-25.0 [facility] Comment on above: Performed By: #### A BG, HEMDF, BMP3 ####[address] Hemoglobin (Bld) [Mass/Vol] 7.5 g/dL Normal ScreenOnly [facility] Comment on above: Performed By: #### A BG, HEMDF, BMP3 ####[address] Oxygen (Bld) [Partial pressure] 88.0 mm[Hg] Normal 80.0-100.0 [facility] Comment on above: Performed By: #### A BG, HEMDF, BMP3 ####[address] Oxygen saturation in Blood 96.6 % Normal 95.0-100.0 [facility] Comment on above: Performed By: #### A BG, HEMDF, BMP3 ####[address] [place], [place] pCO2 30.2 mm[Hg] Low 35.0-45.0 [facility] Comment on above: Performed By: #### A BG, HEMDF, BMP3 ####[address] pH 7.459 High 7.350-7.450 [facility] Comment on above: Performed By: #### A BG, HEMDF, BMP3 ####[address] [address] Std Base Excess -2.5 mmol/L Normal -3.0-3.0 [facility] Comment on above: Performed By: #### A AUGUSTINE CALL BMP3 ####[facility] [place] [address] FIO2 No data Normal [facility] Comment on above: Performed By: #### A AUGUSTINE CALL BMP3 ####[facility] [place] [address] BLOOD GAS, ARTERIALon 2020 Base Excess, Arterial -6.3 mmol/L Low -3.0 - 3.0 mmol/L [facility] CO2 [Moles/Vol] 19.9 mmol/L Low 23.0 - 27.0 mmol/L [facility] FIO2 Arterial No data [facility] HCO3 (Bld) [Moles/Vol] 18.8 mmol/L Low 21.0 - 25.0 mmol/L [facility] Hemoglobin (Bld) [Mass/Vol] 7.7 g/dL ScreenOnly [facility] Interpretation and review of laboratory results Abnormal [facility] Oxygen saturation in Blood 97.6 % 95.0 - 100.0 % [facility] pCO2, Arterial 35.4 mm[Hg] 35.0 - 45.0 mm[Hg] [facility] pH, Arterial 7.344 Low [facility] pO2, Arterial 104.5 mm[Hg] High 80.0 - 100.0 mm[Hg] [facility] Base Excess, Arterial -2.5 mmol/L -3.0 - 3.0 mmol/L [facility] CO2 [Moles/Vol] 21.9 mmol/L Low 23.0 - 27.0 mmol/L [facility] FIO2 Arterial No data [facility] HCO3 (Bld) [Moles/Vol] 20.9 mmol/L Low 21.0 - 25.0 mmol/L [facility] Hemoglobin (Bld) [Mass/Vol] 7.5 g/dL ScreenOnly [facility] Interpretation and review of laboratory results Abnormal [facility] Oxygen saturation in Blood 96.6 % 95.0 - 100.0 % [facility] pCO2, Arterial 30.2 mm[Hg] Low 35.0 - 45.0 mm[Hg] [facility] pH, Arterial 7.459 High [facility] pO2, Arterial 88.0 mm[Hg] 80.0 - 100.0 mm[Hg] [facility] Basic Metabolic Panelon 11-0 -2020 Anion gap [Moles/Vol] 2 mmol/L Low 3-13 [facility] Comment on above: Performed By: #### A BG, HEMDF, BMP3 ####[facility] [employer] [id number] [place], [place] Calcium [Mass/Vol] 7.8 mg/dL Low 8.4-10.4 [facility] Comment on above: Performed By: #### A BG, HEMDF, BMP3 ####[facility] [employer] [address] [place], [place] CO2 [Moles/Vol] 21 mmol/L Low 22-30 [facility] Comment on above: Performed By: #### A BG, HEMDF, BMP3 ####[facility] [employer] [id number] [place] [address] Glucose [Mass/Vol] 138 mg/dL High 70-100 [facility] Comment on above: Performed By: #### A BG, HEMDF, BMP3 ####[facility] [address] [place] [address] Urea nitrogen [Mass/Vol] 22 mg/dL High 9-20 [facility] Comment on above: Performed By: #### A BG, HEMDF, BMP3 ####[facility] [employer] [id number] [place], [place] Creatinine [Mass/Vol] 1.01 mg/dL Normal 0.52-1.25 [facility] Comment on above: Performed By: #### A BG, HEMDF, BMP3 ####[facility] [employer] [id number] [place], [place] GFR/1.73 sq M.predicted among blacks MDRD (S/P/Bld) [Vol rate/Area] 75.8 mL/min/{1.73_m2} Normal >60 [facility] Comment on above: Performed By: #### A BG, HEMDF, BMP3 ####[address] [place], [place] GFR/1.73 sq M.predicted among non-blacks MDRD (S/P/Bld) [Vol rate/Area] 65.4 mL/min/{1.73_m2} Normal >60 [facility] Comment on above: Result Comment: KDIG O guidelines provide the following GFR categories:Stage GFR(ml/min/1.73 m2) TermsG1 >=90 Normal or highG2 60-89 Mildly decreased*G3a 45-59 Mildly to moderately [id number] 30-44 Moderately to severely decreasedG4 15-29 Severely decreasedG5 <15 Kidney failure*Relative to young adult level.In the absence of evidence of kidney damage, neither GFRcategory G1 nor G2 fulfill the criteria for CKD.The CKD-EPI equation is validated in individuals 18 yearsof age and older. Currently the best equation forestimating glomerular filtration rate (GFR) from serumcreatinine in children is the Bedside Yu equation.It is less accurate in patients with extremes of musclemass, restriction of dietary protein, ingestion of creatine,extra-renal metabolism of creatinine, or treatment withmedications that affect renal tubular creatinine secretion. Performed By: #### A BG, HEMDF, BMP3 ####[address] [place], [place] Potassium [Moles/Vol] 3.9 mmol/L Normal 3.5-5.1 [facility] Comment on above: Performed By: #### A BG, HEMDF, BMP3 ####[address] [place], [place] Chloride [Moles/Vol] 115 mmol/L High 98-107 [facility] Comment on above: Performed By: #### A BG, HEMDF, BMP3 ####[address] [place], [place] Sodium [Moles/Vol] 139 mmol/L Normal 135-145 [facility] Comment on above: Performed By: #### A BG, HEMDF, BMP3 ####[address] [place], [place] Anion gap [Moles/Vol] 2 mmol/L Low 3 - 13 mmol/L [facility] Calcium [Mass/Vol] 7.8 mg/dL Low 8.4 - 10. 4 mg/dL [facility] Chloride [Moles/Vol] 115 mmol/L High 98 - 10 7 mmol/L [facility] CO2 [Moles/Vol] 21 mmol/L Low 22 - 30 mmol/L [facility] Creatinine [Mass/Vol] 1.01 mg/dL 0.52 - 1.25 mg/dL [facility] EGFR IF NonAfrican Belizean 65.4 mL/min >60 [facility] GFR/1.73 sq M.predicted among blacks MDRD (S/P/Bld) [Vol rate/Area] 75.8 mL/min/{1.73_m2} >60 [facility] Glucose [Mass/Vol] 138 mg/dL High 70 - 100 mg/dL [facility] Interpretation and review of laboratory results Abnormal [facility] Potassium [Moles/Vol] 3.9 mmol/L 3.5 - 5.1 mmol/L [facility] Sodium [Moles/Vol] 139 mmol/L 135 - 145 mmol/L [facility] Urea nitrogen (BldV) [Mass/Vol] 22 mg/dL High 9 - 20 mg/dL [facility] CBC Auto Differentialon 11-0 Absolute Baso # 0.0 10*3/uL 0.0 - 0.2 10*3/uL [facility] Absolute Neut # 14.4 10*3/uL High 1.8 - 7.0 10*3/uL [facility] Basophils/100 WBC (Bld) 0.1 % 0.0 - 2.0 % [facility] Eosinophils (Bld) [#/Vol] 0.0 10*3/uL 0.0 - 0.5 10*3/uL [facility] Eosinophils/100 WBC (Bld) 0.0 % Low 1.0 - 6.0 % [facility] Granulocytes/100 WBC (Bld) 86.8 % High 40.0 - 80.0 % [facility] Hematocrit (Bld) [Volume fraction] 19.4 % Low 35.0 - 47.0 % [facility] Hemoglobin.gastrointe stinal spec 1 Ql (Stl) 6.6 g/dL Critically low 11.7 - 16.0 g/dL [facility] Interpretation and review of laboratory results Abnormal [facility] Lymphocytes (Bld) [#/Vol] 1.6 10*3/uL 1.0 - 4.3 10*3/uL [facility] Lymphocytes/100 WBC (Bld) 9.4 % Low 20.0 - 40.0 % [facility] MCH (RBC) [Entitic mass] 30.1 pg 26.0 - 34.0 pg [facility] MCHC (RBC) [Mass/Vol] 33.6 % 32.0 - 36.0 % [facility] MCV (RBC) [Entitic vol] 89.5 fL 79.0 - 98.0 fL [facility] Monocytes (Bld) [#/Vol] 0.6 10*3/uL 0.0 - 0.8 10*3/uL [facility] Monocytes/100 WBC (Bld) 3.7 % 2.0 - 10.0 % [facility] Platelet distribution width (Bld) [Ratio] 15.4 % High 11.5 - 14.5 % [facility] Platelet mean volume (Bld) [Entitic vol] 9.7 fL 7.4 - 10.4 fL [facility] Platelets (Bld) [#/Vol] 143 10*3/uL 140 - 440 10*3/uL [facility] RBC (Bld) [#/Vol] 2.17 10*6/uL Low 3.80 - 5.2 0 10*6/uL [facility] WBC (Bld) [#/Vol] 16.6 10*3/uL High 3.6 - 10.7 10*3/uL [facility] CBC auto differentialon 11-0 Absolute Baso # 0.0 10*3/uL 0.0 - 0.2 10*3/uL [facility] Absolute Neut # 16.0 10*3/uL High 1.8 - 7.0 10*3/uL [facility] Basophils/100 WBC (Bld) 0.1 % 0.0 - 2.0 % [facility] Eosinophils (Bld) [#/Vol] 0.0 10*3/uL 0.0 - 0.5 10*3/uL [facility] Eosinophils/100 WBC (Bld) 0.0 % Low 1.0 - 6.0 % [facility] Granulocytes/100 WBC (Bld) 82.9 % High 40.0 - 80.0 % [facility] Hematocrit (Bld) [Volume fraction] 21.0 % Low 35.0 - 47.0 % [facility] Hemoglobin.gastrointe stinal spec 1 Ql (Stl) 7.3 g/dL Low 11.7 - 16.0 g/dL [facility] Interpretation and review of laboratory results Abnormal [facility] Lymphocytes (Bld) [#/Vol] 2.3 10*3/uL 1.0 - 4.3 10*3/uL [facility] Lymphocytes/100 WBC (Bld) 11.9 % Low 20.0 - 40.0 % [facility] MCH (RBC) [Entitic mass] 29.6 pg 26.0 - 34.0 pg [facility] MCHC (RBC) [Mass/Vol] 34.6 % 32.0 - 36.0 % [facility] MCV (RBC) [Entitic vol] 85.5 fL 79.0 - 98.0 fL [facility] Monocytes (Bld) [#/Vol] 1.0 10*3/uL High 0.0 - 0.8 10*3/uL [facility] Monocytes/100 WBC (Bld) 5.1 % 2.0 - 10.0 % [facility] Platelet distribution width (Bld) [Ratio] 14.8 % High 11.5 - 14.5 % [facility] Platelet mean volume (Bld) [Entitic vol] 10.0 fL 7.4 - 10.4 fL [facility] Platelets (Bld) [#/Vol] 178 10*3/uL 140 - 440 10*3/uL [facility] RBC (Bld) [#/Vol] 2.45 10*6/uL Low 3.80 - 5.2 0 10*6/uL [facility] WBC (Bld) [#/Vol] 19.3 10*3/uL High 3.6 - 10.7 10*3/uL [facility] CR Chest Portableon 12-21-19 21 CR Chest Portable Normal [facility] CR Forearm 2 Views Lefton CR Forearm 2 Views Left Normal [facility] CT Up Ext w/o Contrast Lefto n 12-20-2020 CT Up Ext w/o Contrast Left Normal [facility] Calcium, Ionizedon Interpretation and review of laboratory results Abnormal [facility] Ionized Ca 4.10 mg/dL Low 4.30 - 5.20 mg/dL [facility] pH (Bld) 7.44 [pH] [facility] Calcium,Ionizedon 12-20-2020 Ionized Ca,Measured 4.10 mg/dL Low 4.30-5.20 [facility] Comment on above: Performed By: #### I CA ####[address] pH, Ionized Calcium 7.44 Normal 7.31-7.46 [facility] Comment on above: Performed By: #### I CA ####[address] Hemoglobin AND Hematocriton 12-20-2020 Hematocrit (Bld) [Volume fraction] 19.4 % Low 35.0-47.0 [facility] Comment on above: Performed By: #### H GHCT, HEMDF ####[address] Hemoglobin (Bld) [Mass/Vol] 6.6 g/dL Critically low 11.7-16.0 [facility] Comment on above: Result Comment: REPE ATED Performed By: #### H GHCT, HEMDF ####[address] Hemogram w/ Autodiffon 12-20 Abs Baso Cnt 0.0 10*3/uL Normal 0.0-0.2 [facility] Comment on above: Performed By: #### H GHCT, HEMDF ####[address] [place], [place] Abs Neutrophile Cnt 14.4 10*3/uL High 1.8-7.0 [facility] Comment on above: Performed By: #### H GHCT, HEMDF ####[address] Basophils/100 WBC (Bld) 0.1 % Normal 0.0-2.0 [facility] Comment on above: Performed By: #### H GHCT, HEMDF ####[address] [place] Eosinophils (Bld) [#/Vol] 0.0 10*3/uL Normal 0.0-0.5 [facility] Comment on above: Performed By: #### H GHCT, HEMDF ####[address] [place], [place] Eosinophils/100 WBC (Bld) 0.0 % Low 1.0-6.0 [facility] Comment on above: Performed By: #### H GHCT, HEMDF ####[address] Erythrocyte distribution width (RBC) [Ratio] 15.4 % High 11.5-14.5 [facility] Comment on above: Performed By: #### H GHCT, HEMDF ####[address] Granulocytes/100 WBC (Bld) 86.8 % High 40.0-80.0 [facility] Comment on above: Performed By: #### H GHCT, HEMDF ####[address] Lymphocytes (Bld) [#/Vol] 1.6 10*3/uL Normal 1.0-4.3 [facility] Comment on above: Performed By: #### H GHCT, HEMDF ####[address] Lymphocytes/100 WBC (Bld) 9.4 % Low 20.0-40.0 [facility] Comment on above: Performed By: #### H GHCT, HEMDF ####[address] MCH (RBC) [Entitic mass] 30.1 pg Normal 26.0-34.0 [facility] Comment on above: Performed By: #### H GHCT, HEMDF ####[address] MCHC 33.6 % Normal 32.0-36.0 [facility] Comment on above: Performed By: #### H GHCT, HEMDF ####[address] [place], [place] MCV (RBC) [Entitic vol] 89.5 fL Normal 79.0-98.0 [facility] Comment on above: Performed By: #### H GHCT, HEMDF ####[address] [place], [place] Monocytes (Bld) [#/Vol] 0.6 10*3/uL Normal 0.0-0.8 [facility] Comment on above: Performed By: #### H GHCT, HEMDF ####[address] [place], [place] Monocytes/100 WBC (Bld) 3.7 % Normal 2.0-10.0 [facility] Comment on above: Performed By: #### H GHCT, HEMDF ####[address] [place], [place] Platelet mean volume (Bld) [Entitic vol] 9.7 fL Normal 7.4-10.4 [facility] Comment on above: Performed By: #### H GHCT, HEMDF ####[address] [place], [place] Platelets (Bld) [#/Vol] 143 10*3/uL Normal 140-440 [facility] Comment on above: Performed By: #### H GHCT, HEMDF ####[address] [place], [place] RBC (Bld) [#/Vol] 2.17 10*6/uL Low 3.80-5.20 [facility] Comment on above: Performed By: #### H GHCT, HEMDF ####[address] [place], [place] WBC (Bld) [#/Vol] 16.6 10*3/uL High 3.6-10.7 [facility] Comment on above: Performed By: #### H GHCT, HEMDF ####[address] [place], [place] Abs Baso Cnt 0.0 10*3/uL Normal 0.0-0.2 [facility] Comment on above: Performed By: #### A BG HEMDF, BMP3 ####[address] [place], [place] Abs Neutrophile Cnt 16.0 10*3/uL High 1.8-7.0 [facility] Comment on above: Performed By: #### A BG HEMDF, BMP3 ####[address] Basophils/100 WBC (Bld) 0.1 % Normal 0.0-2.0 [facility] Comment on above: Performed By: #### A BG HEMDF, BMP3 ####[address] Eosinophils (Bld) [#/Vol] 0.0 10*3/uL Normal 0.0-0.5 [facility] Comment on above: Performed By: #### A BG, HEMDF, BMP3 ####[address] Eosinophils/100 WBC (Bld) 0.0 % Low 1.0-6.0 [facility] Comment on above: Performed By: #### A BG, HEMDF, BMP3 ####[address] Erythrocyte distribution width (RBC) [Ratio] 14.8 % High 11.5-14.5 [facility] Comment on above: Performed By: #### A BG, HEMDF, BMP3 ####[address] Granulocytes/100 WBC (Bld) 82.9 % High 40.0-80.0 [facility] Comment on above: Performed By: #### A BG, HEMDF, BMP3 ####[address] Hematocrit (Bld) [Volume fraction] 21.0 % Low 35.0-47.0 [facility] Comment on above: Performed By: #### A BG HEMDF, BMP3 ####[address] Hemoglobin (Bld) [Mass/Vol] 7.3 g/dL Low 11.7-16.0 [facility] Comment on above: Performed By: #### A BG HEMDF, BMP3 ####[address] Lymphocytes (Bld) [#/Vol] 2.3 10*3/uL Normal 1.0-4.3 [facility] Comment on above: Performed By: #### A BG HEMDF, BMP3 ####[address] Lymphocytes/100 WBC (Bld) 11.9 % Low 20.0-40.0 [facility] Comment on above: Performed By: #### A BG HEMDF, BMP3 ####[address] MCH (RBC) [Entitic mass] 29.6 pg Normal 26.0-34.0 [facility] Comment on above: Performed By: #### A BG HEMDF, BMP3 ####[address] MCHC 34.6 % Normal 32.0-36.0 [facility] Comment on above: Performed By: #### A BG HEMDF, BMP3 ####[address] MCV (RBC) [Entitic vol] 85.5 fL Normal 79.0-98.0 [facility] Comment on above: Performed By: #### A BG HEMDF, BMP3 ####[address] Monocytes (Bld) [#/Vol] 1.0 10*3/uL High 0.0-0.8 [facility] Comment on above: Performed By: #### A BG HEMDF, BMP3 ####[address] Monocytes/100 WBC (Bld) 5.1 % Normal 2.0-10.0 [facility] Comment on above: Performed By: #### A BG HEMDF, BMP3 ####[address] [place], [place] Platelet mean volume (Bld) [Entitic vol] 10.0 fL Normal 7.4-10.4 [facility] Comment on above: Performed By: #### A BG, HEMDF, BMP3 ####[address] Platelets (Bld) [#/Vol] 178 10*3/uL Normal 140-440 [facility] Comment on above: Performed By: #### A BG, HEMDF, BMP3 ####[address] RBC (Bld) [#/Vol] 2.45 10*6/uL Low 3.80-5.20 [facility] Comment on above: Performed By: #### A BG, HEMDF, BMP3 ####[address] WBC (Bld) [#/Vol] 19.3 10*3/uL High 3.6-10.7 [facility] Comment on above: Performed By: #### A BG, HEMDF, BMP3 ####[address] Abs Baso Cnt 0.0 10*3/uL Normal 0.0-0.2 [facility] Comment on above: Performed By: #### H EMDF ####[address] Abs Neutrophile Cnt 18.3 10*3/uL High 1.8-7.0 [facility] Comment on above: Performed By: #### H EMDF ####[address] Basophils/100 WBC (Bld) 0.1 % Normal 0.0-2.0 [facility] Comment on above: Performed By: #### H EMDF ####[address] [place], [place] Eosinophils (Bld) [#/Vol] 0.0 10*3/uL Normal 0.0-0.5 [facility] Comment on above: Performed By: #### H EMDF ####[address] Eosinophils/100 WBC (Bld) 0.0 % Low 1.0-6.0 [facility] Comment on above: Performed By: #### H EMDF ####[address] Erythrocyte distribution width (RBC) [Ratio] 14.6 % High 11.5-14.5 [facility] Comment on above: Performed By: #### H EMDF ####[address] Granulocytes/100 WBC (Bld) 87.1 % High 40.0-80.0 [facility] Comment on above: Performed By: #### H EMDF ####[address] Hematocrit (Bld) [Volume fraction] 23.5 % Low 35.0-47.0 [facility] Comment on above: Performed By: #### H EMDF ####[address] Hemoglobin (Bld) [Mass/Vol] 8.0 g/dL Low 11.7-16.0 [facility] Comment on above: Performed By: #### H EMDF ####[address] Lymphocytes (Bld) [#/Vol] 1.7 10*3/uL Normal 1.0-4.3 [facility] Comment on above: Performed By: #### H EMDF ####[address] Lymphocytes/100 WBC (Bld) 8.3 % Low 20.0-40.0 [facility] Comment on above: Performed By: #### H EMDF ####[address] [place], [place] MCH (RBC) [Entitic mass] 29.6 pg Normal 26.0-34.0 [facility] Comment on above: Performed By: #### H EMDF ####[address] [place] MCHC 34.2 % Normal 32.0-36.0 [facility] Comment on above: Performed By: #### H EMDF ####[address] MCV (RBC) [Entitic vol] 86.5 fL Normal 79.0-98.0 [facility] Comment on above: Performed By: #### H EMDF ####[address] Monocytes (Bld) [#/Vol] 1.0 10*3/uL High 0.0-0.8 [facility] Comment on above: Performed By: #### H EMDF ####[address] [place] Monocytes/100 WBC (Bld) 4.5 % Normal 2.0-10.0 [facility] Comment on above: Performed By: #### H EMDF ####[address] [place], [place] Platelet mean volume (Bld) [Entitic vol] 10.1 fL Normal 7.4-10.4 [facility] Comment on above: Performed By: #### H EMDF ####[address] [place], [place] Platelets (Bld) [#/Vol] 168 10*3/uL Normal 140-440 [facility] Comment on above: Performed By: #### H EMDF ####[address] RBC (Bld) [#/Vol] 2.71 10*6/uL Low 3.80-5.20 [facility] Comment on above: Performed By: #### H EMDF ####[address] WBC (Bld) [#/Vol] 21.1 10*3/uL High 3.6-10.7 [facility] Comment on above: Performed By: #### H EMDF ####[address] Laboratory - Blood bankon ABO and Rh group Nom (Bld) 6200 [facility] ABO and Rh group Nom (Bld) 6200 [facility] Blood product unit ID (Dose) [#] [id number] [facility] Leukodepleted Red Cellson Leukodepleted Red Cells Normal [facility] Comment on above: Performed By: #### P RP, LRC, SDP, CR5 ####[address] [address]#### TSGL ####[facility] No Panel Informationon 12-20 Dispense Status Blood Bank transfused [facility] Expiration Date [facility] Product Code Blood Bank [id number] [facility] Radiology Study observation (narrative) [facility] Work Phone: Dispense Status Blood Bank released [facility] Expiration Date [facility] Product Code Blood Bank [id number] [facility] Op Noteon 12-20-2020 Op Note Normal [facility] PATHOGEN REDUCED LR PPHRon 1 02-20-2020 PATHOGEN REDUCED LR PPHR Normal [facility] Comment on above: Performed By: #### P RP, LRC, SDP, CR5 ####[address] [address]#### TSGL ####[facility] PLASMA STATUSon 12-20-2020 BLOOD PRODUCT CODE [id number] Normal [facility] Comment on above: Performed By: #### F FU #### [facility] [address] [place] [address], [id number] BLOOD PRODUCT DESCRIPTION FFP Normal [facility] Comment on above: Performed By: #### F FU #### S [facility] [address] [place], [place], BLOOD PRODUCT UNIT INFO [id number] Normal [facility] Comment on above: Performed By: #### F FU #### S [facility] [address] [place], [place], BLOOD PRODUCT UNIT TYPE 6200 Normal [facility] Comment on above: Result Comment: A Po s Performed By: #### F FU #### [facility] [address] [place], [place], PREPARE PLATELETS, 1 Product on 12-20-2020 [facility] PREPARE RBC (CROSSMATCH), 2 Unitson 12-20-2020 Blood product unit ID (Dose) [#] [id number] [facility] Blood product unit ID (Dose) [#] [id number] [facility] Procalcitoninon 12-20-2020 Procalcitonin 1.08 ng/mL High 0.00-0.09 [facility] Comment on above: Performed By: #### P MICHELLE ####[facility] [employer] [id number] [place] [address] Interpretation See Below [facility] Work Phone: Interpretation and review of laboratory results Abnormal [facility] Work Phone: Procalcitonin 1.08 ng/mL High 0.00 - 0.09 ng/mL [facility] Work Phone: [facility] Work Phone: Interpretation See Below Normal [facility] Comment on above: Result Comment: PCT <0.50 = Low risk of severe sepsis and/or septic shock.PCT >2.00 = High risk of severe sepsis and/or septic shock. Performed By: #### P MICHELLE ####[address] [place] [address] RED BLOOD CELL COMPONENTon 1 02-20-2020 BB ORDER ITEM Product status info to follow [facility] Comment on above: Performed By: #### R REYNALDO #### [facility] [address] [place] [address], Performed By: #### F FO #### [facility] [address] [place] [address], RED BLOOD CELL UNIT STATUSon 12-20-2020 BLOOD PRODUCT CODE [id number] Normal [facility] Comment on above: Performed By: #### R BU #### [facility] [address] [place] [address], BLOOD PRODUCT DESCRIPTION Red Blood Cells Normal [facility] Comment on above: Performed By: #### R BU #### [facility] [address] [place] [address], BLOOD PRODUCT STATUS Transfused Normal [facility] Comment on above: Performed By: #### R BU #### [facility] [address] [place] [address], Performed By: #### F FU #### [facility] [address] [place] [address], BLOOD PRODUCT UNIT INFO [id number] Normal [facility] Comment on above: Performed By: #### R BU #### [facility] [address] [place] [address], BLOOD PRODUCT UNIT INFO [id number] Normal [facility] Comment on above: Performed By: #### R BU #### [facility] [address] [place] [address], BLOOD PRODUCT UNIT TYPE 9500 Normal [facility] Comment on above: Result Comment: O Ne g Performed By: #### R BU #### [facility] [address] [place] [address], CROSSMATCH INTERPRETATION Compatible (IS) Normal [facility] Comment on above: Result Comment: PERF ORMED BY NINA. Emergency Transfusion - Transfused Uncrossmatched Performed By: #### R BU #### [facility] [address] [place] [address], Single Donor Plasma (CP2D)on 12-20-2020 Single Donor Plasma (CP2D) Normal [facility] Comment on above: Performed By: #### P RP, LRC, SDP, CR5 ####[address] [address]#### TSGL ####[facility] Surgical Pathologyon 021 Surgical Pathology Report SEE BELOW [facility] XR CHEST PORTABLEon 12-21-19 21 [facility] Work Phone: [facility] Work Phone: XR RADIUS ULNA LEFT (2 VIEWS )on 12-20-2020 [facility] RAD [facility] Work Phone: XR RADIUS ULNA LEFT (2 VIEWS )Ordered By: Jerome Denson on 12-20-2020 [facility] Work Phone: Arterial Blood Gaseson 12-19 CO2 [Moles/Vol] 21.5 mmol/L Low 23.0-27.0 [facility] Comment on above: Performed By: #### A BG ####[address] [address] HCO3 (Bld) [Moles/Vol] 20.5 mmol/L Low 21.0-25.0 [facility] Comment on above: Performed By: #### A BG ####[address] [address] Hemoglobin (Bld) [Mass/Vol] 10.6 g/dL Normal ScreenOnly [facility] Comment on above: Performed By: #### A BG ####[address] [address] Oxygen (Bld) [Partial pressure] 172.1 mm[Hg] High 80.0-100.0 [facility] Comment on above: Performed By: #### A BG ####[address] [address] Oxygen saturation in Blood 98.9 % Normal 95.0-100.0 [facility] Comment on above: Performed By: #### A BG ####[address] pCO2 34.3 mm[Hg] Low 35.0-45.0 [facility] Comment on above: Performed By: #### A BG ####[address] [place], [place] pH 7.394 Normal 7.350-7.450 [facility] Comment on above: Performed By: #### A BG ####[address] [place], [place] Std Base Excess -3.8 mmol/L Low -3.0-3.0 [facility] Comment on above: Performed By: #### A BG ####[address] [place], [place] FIO2 No data Normal [facility] Comment on above: Performed By: #### A BG ####[address] CO2 [Moles/Vol] 25.2 mmol/L Normal 23.0-27.0 [facility] Comment on above: Performed By: #### A BG, HGHCT, LACT3 ####[address] [place] HCO3 (Bld) [Moles/Vol] 23.9 mmol/L Normal 21.0-25.0 [facility] Comment on above: Performed By: #### A BG, HGHCT, LACT3 ####[address] [address] [place], [place] Hemoglobin (Bld) [Mass/Vol] 5.5 g/dL Critically low ScreenOnly [facility] Comment on above: Performed By: #### A BG, HGHCT, LACT3 ####[address] [place] Oxygen (Bld) [Partial pressure] 170.9 mm[Hg] High 80.0-100.0 [facility] Comment on above: Performed By: #### A BG, HGHCT, LACT3 ####[address] [place], [place] Oxygen saturation in Blood 98.8 % Normal 95.0-100.0 [facility] Comment on above: Performed By: #### A BG, HGHCT, LACT3 ####[address] [place] pCO2 41.4 mm[Hg] Normal 35.0-45.0 [facility] Comment on above: Performed By: #### A BG, HGHCT, LACT3 ####[address] pH 7.380 Normal 7.350-7.450 [facility] Comment on above: Performed By: #### A BG, HGHCT, LACT3 ####[address] Std Base Excess -1.1 mmol/L Normal -3.0-3.0 [facility] Comment on above: Performed By: #### A BG, HGHCT, LACT3 ####[address] FIO2 0.5 Normal [facility] Comment on above: Performed By: #### A BG, HGHCT, LACT3 ####[address] Basic Metabolic Panelon 11-0 Calcium [Mass/Vol] 8.7 mg/dL Normal 8.4-10.4 [facility] Comment on above: Performed By: #### M G3, PHOS3, BMP3 ####[address] Anion gap [Moles/Vol] 5 mmol/L Normal 3-13 [facility] Comment on above: Performed By: #### M G3, PHOS3, BMP3 ####[address] CO2 [Moles/Vol] 20 mmol/L Low 22-30 [facility] Comment on above: Performed By: #### M G3, PHOS3, BMP3 ####[address] [place], [place] Creatinine [Mass/Vol] 0.90 mg/dL Normal 0.52-1.25 [facility] Comment on above: Performed By: #### M G3 PHOS3, BMP3 ####[facility] [place], [place] GFR/1.73 sq M.predicted among blacks MDRD (S/P/Bld) [Vol rate/Area] 87.1 mL/min/{1.73_m2} Normal >60 [facility] Comment on above: Performed By: #### M G3, PHOS3, BMP3 ####[facility] [employer] [id number] [place], [place] GFR/1.73 sq M.predicted among non-blacks MDRD (S/P/Bld) [Vol rate/Area] 75.2 mL/min/{1.73_m2} Normal >60 [facility] Comment on above: Result Comment: KDIG O guidelines provide the following GFR categories:Stage GFR(ml/min/1.73 m2) TermsG1 >=90 Normal or highG2 60-89 Mildly decreased*G3a 45-59 Mildly to moderately kujnqldtfO2x 30-44 Moderately to severely decreasedG4 15-29 Severely decreasedG5 <15 Kidney failure*Relative to young adult level.In the absence of evidence of kidney damage, neither GFRcategory G1 nor G2 fulfill the criteria for CKD.The CKD-EPI equation is validated in individuals 18 yearsof age and older. Currently the best equation forestimating glomerular filtration rate (GFR) from serumcreatinine in children is the Bedside Yu equation.It is less accurate in patients with extremes of musclemass, restriction of dietary protein, ingestion of creatine,extra-renal metabolism of creatinine, or treatment withmedications that affect renal tubular creatinine secretion. Performed By: #### M G3, PHOS3, BMP3 ####[facility] [employer] [id number] [place], [place] Glucose [Mass/Vol] 160 mg/dL High 70-100 [facility] Comment on above: Performed By: #### M G3, PHOS3, BMP3 ####[facility] [employer] [id number] [place], [place] Urea nitrogen [Mass/Vol] 17 mg/dL Normal 9-20 [facility] Comment on above: Performed By: #### M Wu PHOS3, BMP3 ####[facility] [place], [place] Chloride [Moles/Vol] 114 mmol/L High 98-107 [facility] Comment on above: Performed By: #### M G3, PHOS3, BMP3 ####[address] [place], [place] Potassium [Moles/Vol] 4.9 mmol/L Normal 3.5-5.1 [facility] Comment on above: Performed By: #### Ward Washburn, PHOS3, BMP3 ####[address] [place], [place] Sodium [Moles/Vol] 138 mmol/L Normal 135-145 [facility] Comment on above: Performed By: #### Ward Washburn, PHOS3, BMP3 ####[address] [place], [place] CBC auto differentialon 11-0 Absolute Baso # 0.0 10*3/uL 0.0 - 0.2 10*3/uL [facility] Absolute Neut # 18.3 10*3/uL High 1.8 - 7.0 10*3/uL [facility] Basophils/100 WBC (Bld) 0.1 % 0.0 - 2.0 % [facility] Eosinophils (Bld) [#/Vol] 0.0 10*3/uL 0.0 - 0.5 10*3/uL [facility] Eosinophils/100 WBC (Bld) 0.0 % Low 1.0 - 6.0 % [facility] Granulocytes/100 WBC (Bld) 87.1 % High 40.0 - 80.0 % [facility] Hematocrit (Bld) [Volume fraction] 23.5 % Low 35.0 - 47.0 % [facility] Hemoglobin.gastrointe stinal spec 1 Ql (Stl) 8.0 g/dL Low 11.7 - 16.0 g/dL [facility] Interpretation and review of laboratory results Abnormal [facility] Lymphocytes (Bld) [#/Vol] 1.7 10*3/uL 1.0 - 4.3 10*3/uL [facility] Lymphocytes/100 WBC (Bld) 8.3 % Low 20.0 - 40.0 % [facility] MCH (RBC) [Entitic mass] 29.6 pg 26.0 - 34.0 pg [facility] MCHC (RBC) [Mass/Vol] 34.2 % 32.0 - 36.0 % [facility] MCV (RBC) [Entitic vol] 86.5 fL 79.0 - 98.0 fL [facility] Monocytes (Bld) [#/Vol] 1.0 10*3/uL High 0.0 - 0.8 10*3/uL [facility] Monocytes/100 WBC (Bld) 4.5 % 2.0 - 10.0 % [facility] Platelet distribution width (Bld) [Ratio] 14.6 % High 11.5 - 14.5 % [facility] Platelet mean volume (Bld) [Entitic vol] 10.1 fL 7.4 - 10.4 fL [facility] Platelets (Bld) [#/Vol] 168 10*3/uL 140 - 440 10*3/uL [facility] RBC (Bld) [#/Vol] 2.71 10*6/uL Low 3.80 - 5.2 0 10*6/uL [facility] WBC (Bld) [#/Vol] 21.1 10*3/uL High 3.6 - 10.7 10*3/uL [facility] Hematocrit (Bld) [Volume fraction] 25.6 % Low 35.0 - 47.0 % [facility] Hemoglobin.gastrointe stinal spec 1 Ql (Stl) 8.6 g/dL Low 11.7 - 16.0 g/dL [facility] Interpretation and review of laboratory results Abnormal [facility] MCH (RBC) [Entitic mass] 29.1 pg 26.0 - 34.0 pg [facility] MCHC (RBC) [Mass/Vol] 33.8 % 32.0 - 36.0 % [facility] MCV (RBC) [Entitic vol] 86.1 fL 79.0 - 98.0 fL [facility] Platelet distribution width (Bld) [Ratio] 14.8 % High 11.5 - 14.5 % [facility] Platelet mean volume (Bld) [Entitic vol] 10.0 fL 7.4 - 10.4 fL [facility] Platelets (Bld) [#/Vol] 142 10*3/uL 140 - 440 10*3/uL [facility] RBC (Bld) [#/Vol] 2.97 10*6/uL Low 3.80 - 5.2 0 10*6/uL [facility] WBC (Bld) [#/Vol] 24.8 10*3/uL High 3.6 - 10.7 10*3/uL [facility] Absolute Baso # 0.1 10*3/uL 0.0 - 0.2 10*3/uL [facility] Absolute Neut # 20.0 10*3/uL High 1.8 - 7.0 10*3/uL [facility] Basophils/100 WBC (Bld) 0.3 % 0.0 - 2.0 % [facility] Eosinophils (Bld) [#/Vol] 0.0 10*3/uL 0.0 - 0.5 10*3/uL [facility] Eosinophils/100 WBC (Bld) 0.0 % Low 1.0 - 6.0 % [facility] Granulocytes/100 WBC (Bld) 85.3 % High 40.0 - 80.0 % [facility] Hematocrit (Bld) [Volume fraction] 26.9 % Low 35.0 - 47.0 % [facility] Hemoglobin.gastrointe stinal spec 1 Ql (Stl) 9.1 g/dL Low 11.7 - 16.0 g/dL [facility] Interpretation and review of laboratory results Abnormal [facility] Lymphocytes (Bld) [#/Vol] 2.4 10*3/uL 1.0 - 4.3 10*3/uL [facility] Lymphocytes/100 WBC (Bld) 10.3 % Low 20.0 - 40.0 % [facility] MCH (RBC) [Entitic mass] 29.1 pg 26.0 - 34.0 pg [facility] MCHC (RBC) [Mass/Vol] 33.9 % 32.0 - 36.0 % [facility] MCV (RBC) [Entitic vol] 85.8 fL 79.0 - 98.0 fL [facility] Monocytes (Bld) [#/Vol] 1.0 10*3/uL High 0.0 - 0.8 10*3/uL [facility] Monocytes/100 WBC (Bld) 4.1 % 2.0 - 10.0 % [facility] Platelet distribution width (Bld) [Ratio] 13.8 % 11.5 - 14.5 % [facility] Platelet mean volume (Bld) [Entitic vol] 10.1 fL 7.4 - 10.4 fL [facility] Platelets (Bld) [#/Vol] 112 10*3/uL Low 140 - 440 10*3/uL [facility] RBC (Bld) [#/Vol] 3.13 10*6/uL Low 3.80 - 5.2 0 10*6/uL [facility] WBC (Bld) [#/Vol] 23.4 10*3/uL High 3.6 - 10.7 10*3/uL [facility] CR Chest Portableon 12-20-19 CR [facility] Normal [facility] [facility] CR Pelvis 1 or 2 Viewson CR Pelvis 1 or 2 Views Normal [facility] CR Shoulder 2+ Views Lefton 12-19-2020 CR Shoulder 2+ Views Left Normal [facility] CR Tibia/Fibula 2 Views Rig ton 12-19-2020 CR Tibia/Fibula 2 Views Right Normal [facility] CR Wrist 2 Views Lefton CR Wrist 2 Views Left Normal [facility] CT Head or Brain w/o Contras ton 12-19-2020 CT Head or Brain w/o Contrast Normal [facility] CT LOWER EXTREMITY LEFT WO C ONTRASTon 12-19-2020 [facility] Work Phone: [facility] Work Phone: CT LOWER EXTREMITY RIGHT WO CONTRASTon 12-19-2020 [facility] RAD CT Low Ext w/o Contrast Left on 12-19-2020 CT Low Ext w/o Contrast Left Normal [facility] CT Low Ext w/o Contrast Righ ton 12-19-2020 CT Low Ext w/o Contrast Right Normal [facility] CT Maxillofacial w/o Contras ton 12-19-2020 CT Maxillofacial w/o Contrast Normal [facility] CT PELVIS WO CONTRAST Additi onal Contrast? Noneon 12-19-2020 [facility] Work Phone: CT PELVIS WO CONTRAST Additi onal Contrast? NoneOrdered By: Praveen Vidal on 12-19-2020 [facility] Work Phone: CT Pelvis w/o Contrast (PO O nly)on 12-19-2020 CT Pelvis w/o Contrast (PO Only) Normal [facility] CT Sinus WO Contraston 12-19 [facility] Work Phone: [facility] Work Phone: CT UPPER EXTREMITY LEFT WO C ONTRASTon 12-19-2020 [facility] Work Phone: CT UPPER EXTREMITY LEFT WO C ONTRASTOrdered By: Jasper Falcon on 12-19-2020 [facility] Work Phone: Drugs of Abuseon 12-19-2020 Methadone, Ur Positive Normal [facility] Comment on above: Performed By: #### D RGA4 ####[facility] [employer] [id number] [place], [place] Phencyclidine (PCP), Ur Negative Normal [facility] Comment on above: Result Comment: The expected value for all of the drugs listedabove is Negative.The following drugs or drug groups have been screenedfor by Immunoassay at the following thresholds:Amphetamine class (1000 ng/mL), Barbiturates (200 ng/mL),Benzodiazepines (200 ng/mL), Cocaine (300 ng/mL),Methadone (300 ng/mL), Opiates (300 ng/mL),Oxycodone (100 ng/mL), and PCP (25 ng/mL).NOTE: These results are for medical treatment only.Analysis performed using non-forensic procedures.POSITIVE results are NOT confirmed by a more specificalternative method unless requested. If confirmation isneeded, request confirmation under separate order. Performed By: #### D RGA4 ####[facility] [employer] [id number] [employer] [facility] [place] [place] [address] Cocaine, Ur Negative Normal [facility] Comment on above: Performed By: #### D RGA4 ####[facility] [employer] [facility] [place] [place] [address] Barbiturates, Ur Negative Normal [facility] Comment on above: Performed By: #### D RGA4 ####[id number] [place], [place] Opiates, Ur Negative Normal [facility] Comment on above: Performed By: #### D RGA4 ####[address] [place], [place] Amphetamines, Ur Negative Normal [facility] Comment on above: Performed By: #### D RGA4 ####[address] [place] Benzodiazepines, Ur Positive Normal [facility] Comment on above: Performed By: #### D RGA4 ####[address] [place], [place] Oxycodone/Oxymorphine ,Ur Negative Normal [facility] Comment on above: Performed By: #### D RGA4 ####[address] [place], [place] Hemoglobin AND Hematocriton 12-19-2020 Hematocrit (Bld) [Volume fraction] 30.9 % Low 35.0-47.0 [facility] Comment on above: Performed By: #### H GHCT ####[id number] [place], [place] Hemoglobin (Bld) [Mass/Vol] 10.5 g/dL Low 11.7-16.0 [facility] Comment on above: Performed By: #### H GHCT ####[address] [place] Hematocrit (Bld) [Volume fraction] 16.6 % Low 35.0-47.0 [facility] Comment on above: Performed By: #### A BG, HGHCT, LACT3 ####[address] [place], [place] Hemoglobin (Bld) [Mass/Vol] 5.6 g/dL Critically low 11.7-16.0 [facility] Comment on above: Performed By: #### A BG, HGHCT, LACT3 ####[address] [place], [place] Hemogram w/ Autodiffon 12-19 Erythrocyte distribution width (RBC) [Ratio] 14.8 % High 11.5-14.5 [facility] Comment on above: Performed By: #### LUIS ALFREDO SIU ####[address] [place], [place] Hematocrit (Bld) [Volume fraction] 25.6 % Low 35.0-47.0 [facility] Comment on above: Performed By: #### LUIS ALFREDO SIU ####[address] [place], [place] Hemoglobin (Bld) [Mass/Vol] 8.6 g/dL Low 11.7-16.0 [facility] Comment on above: Performed By: #### LUIS ALFREDO SIU ####[address] MCH (RBC) [Entitic mass] 29.1 pg Normal 26.0-34.0 [facility] Comment on above: Performed By: #### LUIS ALFREDO SIU ####[address] [place] MCHC 33.8 % Normal 32.0-36.0 [facility] Comment on above: Performed By: #### LUIS ALFREDO SIU ####[address] MCV (RBC) [Entitic vol] 86.1 fL Normal 79.0-98.0 [facility] Comment on above: Performed By: #### LUIS ALFREDO SIU ####[address] Platelet mean volume (Bld) [Entitic vol] 10.0 fL Normal 7.4-10.4 [facility] Comment on above: Performed By: #### LUIS ALFREDO SIU ####[address] Platelets (Bld) [#/Vol] 142 10*3/uL Normal 140-440 [facility] Comment on above: Performed By: #### H LUIS ALFREDO RAWLS ####[address] RBC (Bld) [#/Vol] 2.97 10*6/uL Low 3.80-5.20 [facility] Comment on above: Performed By: #### H LUIS ALFREDO RAWLS ####[address] WBC (Bld) [#/Vol] 24.8 10*3/uL High 3.6-10.7 [facility] Comment on above: Performed By: #### H LUIS ALFREDO RAWLS ####[address] Abs Baso Cnt 0.1 10*3/uL Normal 0.0-0.2 [facility] Comment on above: Performed By: #### H CURLY ####[address] Abs Neutrophile Cnt 20.0 10*3/uL High 1.8-7.0 [facility] Comment on above: Performed By: #### H CURLY ####[address] Basophils/100 WBC (Bld) 0.3 % Normal 0.0-2.0 [facility] Comment on above: Performed By: #### H CURLY ####[address] Eosinophils (Bld) [#/Vol] 0.0 10*3/uL Normal 0.0-0.5 [facility] Comment on above: Performed By: #### H EMDMiguel Ángel ####[address] Eosinophils/100 WBC (Bld) 0.0 % Low 1.0-6.0 [facility] Comment on above: Performed By: #### H EMDF ####[address] [address] Erythrocyte distribution width (RBC) [Ratio] 13.8 % Normal 11.5-14.5 [facility] Comment on above: Performed By: #### H EMDF ####[address] Granulocytes/100 WBC (Bld) 85.3 % High 40.0-80.0 [facility] Comment on above: Performed By: #### H EMDF ####[address] Hematocrit (Bld) [Volume fraction] 26.9 % Low 35.0-47.0 [facility] Comment on above: Performed By: #### H EMDF ####[address] Hemoglobin (Bld) [Mass/Vol] 9.1 g/dL Low 11.7-16.0 [facility] Comment on above: Performed By: #### H EMDF ####[address] Lymphocytes (Bld) [#/Vol] 2.4 10*3/uL Normal 1.0-4.3 [facility] Comment on above: Performed By: #### H EMDF ####[address] Lymphocytes/100 WBC (Bld) 10.3 % Low 20.0-40.0 [facility] Comment on above: Performed By: #### H EMDF ####[address] MCH (RBC) [Entitic mass] 29.1 pg Normal 26.0-34.0 [facility] Comment on above: Performed By: #### H EMDF ####[address] MCHC 33.9 % Normal 32.0-36.0 [facility] Comment on above: Performed By: #### H EMDF ####[address] MCV (RBC) [Entitic vol] 85.8 fL Normal 79.0-98.0 [facility] Comment on above: Performed By: #### H EMDF ####[address] Monocytes (Bld) [#/Vol] 1.0 10*3/uL High 0.0-0.8 [facility] Comment on above: Performed By: #### H EMDF ####[address] Monocytes/100 WBC (Bld) 4.1 % Normal 2.0-10.0 [facility] Comment on above: Performed By: #### H EMDF ####[address] Platelet mean volume (Bld) [Entitic vol] 10.1 fL Normal 7.4-10.4 [facility] Comment on above: Performed By: #### H EMDF ####[address] Platelets (Bld) [#/Vol] 112 10*3/uL Low 140-440 [facility] Comment on above: Performed By: #### H EMDF ####[address] RBC (Bld) [#/Vol] 3.13 10*6/uL Low 3.80-5.20 [facility] Comment on above: Performed By: #### H EMDF ####[address] WBC (Bld) [#/Vol] 23.4 10*3/uL High 3.6-10.7 [facility] Comment on above: Performed By: #### H EMDF ####[address] Abs Baso Cnt 0.0 10*3/uL Normal 0.0-0.2 [facility] Comment on above: Performed By: #### B MP3M, ICA, LFT3, HEMDF, ABG ####[facility] [address] [place], [place] Abs Neutrophile Cnt 15.8 10*3/uL High 1.8-7.0 [facility] Comment on above: Performed By: #### B MP3M, ICA, LFT3, HEMDF, ABG ####[address] [place], [place] Basophils/100 WBC (Bld) 0.2 % Normal 0.0-2.0 [facility] Comment on above: Performed By: #### B MP3M, ICA, LFT3, HEMDF, ABG ####[address] Eosinophils (Bld) [#/Vol] 0.0 10*3/uL Normal 0.0-0.5 [facility] Comment on above: Performed By: #### B MP3M, ICA, LFT3, HEMDF, ABG ####[address] Eosinophils/100 WBC (Bld) 0.0 % Low 1.0-6.0 [facility] Comment on above: Performed By: #### B MP3M, ICA, LFT3, HEMDF, ABG ####[address] [place] Erythrocyte distribution width (RBC) [Ratio] 14.0 % Normal 11.5-14.5 [facility] Comment on above: Performed By: #### B MP3M, ICA, LFT3, HEMDF, ABG ####[address] Granulocytes/100 WBC (Bld) 85.1 % High 40.0-80.0 [facility] Comment on above: Performed By: #### B MP3M, ICA, LFT3, HEMDF, ABG ####[address] Hematocrit (Bld) [Volume fraction] 30.3 % Low 35.0-47.0 [facility] Comment on above: Performed By: #### B MP3M, ICA, LFT3, HEMDF, ABG ####[address] [place] Hemoglobin (Bld) [Mass/Vol] 10.4 g/dL Low 11.7-16.0 [facility] Comment on above: Performed By: #### B MP3M, ICA, LFT3, HEMDF, ABG ####[address] [place] Lymphocytes (Bld) [#/Vol] 2.0 10*3/uL Normal 1.0-4.3 [facility] Comment on above: Performed By: #### B MP3M, ICA, LFT3, HEMDF, ABG ####[address] [place] Lymphocytes/100 WBC (Bld) 10.9 % Low 20.0-40.0 [facility] Comment on above: Performed By: #### B MP3M, ICA, LFT3, HEMDF, ABG ####[address] MCH (RBC) [Entitic mass] 29.5 pg Normal 26.0-34.0 [facility] Comment on above: Performed By: #### B MP3M, ICA, LFT3, HEMDF, ABG ####[address] MCHC 34.2 % Normal 32.0-36.0 [facility] Comment on above: Performed By: #### B MP3M, ICA, LFT3, HEMDF, ABG ####[address] MCV (RBC) [Entitic vol] 86.1 fL Normal 79.0-98.0 [facility] Comment on above: Performed By: #### B MP3M, ICA, LFT3, HEMDF, ABG ####[address] Monocytes (Bld) [#/Vol] 0.7 10*3/uL Normal 0.0-0.8 [facility] Comment on above: Performed By: #### B MP3M, ICA, LFT3, HEMDF, ABG ####[address] [place], [place] Monocytes/100 WBC (Bld) 3.8 % Normal 2.0-10.0 [facility] Comment on above: Performed By: #### B MP3M, ICA, LFT3, HEMDF, ABG ####[address] [place] Platelet mean volume (Bld) [Entitic vol] 10.4 fL Normal 7.4-10.4 [facility] Comment on above: Performed By: #### B MP3M, ICA, LFT3, HEMDF, ABG ####[address] [place] Platelets (Bld) [#/Vol] 98 10*3/uL Low 140-440 [facility] Comment on above: Performed By: #### B MP3M, ICA, LFT3, HEMDF, ABG ####[address] [place] RBC (Bld) [#/Vol] 3.51 10*6/uL Low 3.80-5.20 [facility] Comment on above: Performed By: #### B MP3M, ICA, LFT3, HEMDF, ABG ####[address] [place] WBC (Bld) [#/Vol] 18.5 10*3/uL High 3.6-10.7 [facility] Comment on above: Performed By: #### B MP3M, ICA, LFT3, HEMDF, ABG ####[address] [place], [place] LAB SCANNED REPORTon [facility] Lactic Acidon 12-19-2020 Lactate [Moles/Vol] 1.3 mmol/L Normal 0.7-2.0 [facility] Comment on above: Performed By: #### A BG, HGHCT, LACT3 ####[address] [place], [place] Leukodepleted Red Cellson Leukodepleted Red Cells Normal [facility] Comment on above: Performed By: #### P RP, LRC, SDP, CR5 ####[address] [address]#### TSGL ####[facility] Magnesiumon 12-19-2020 Magnesium [Mass/Vol] 1.7 mg/dL Normal 1.6-2.3 [facility] Comment on above: Performed By: #### M G3, PHOS3, BMP3 ####[address] Manual Diffon 12-19-2020 Abs Lymph Cnt 1.5 10*3/uL Normal 1.1-4.5 [facility] Comment on above: Performed By: #### LUIS ALFREDO SIU ####[address] [place], [place] Abs Monocyte Cnt 0.5 10*3/uL Normal 0.2-1.1 [facility] Comment on above: Performed By: #### LUIS ALFREDO SIU ####[address] [place], [place] Abs Neutrophile Cnt 22.8 10*3/uL High 2.2-8.2 [facility] Comment on above: Performed By: #### LUIS ALFREDO SIU ####[address] [place], [place] Bands 23 % High 0-3 [facility] Comment on above: Performed By: #### LUIS ALFREDO SIU ####[address] [place] Lymphocytes 6 % Low 20-40 [facility] Comment on above: Performed By: #### LUIS ALFREDO SIU ####[address] [place] Monocytes 2 % Normal 2-10 [facility] Comment on above: Performed By: #### LUIS ALFREDO SIU ####[address] RBC Morphology Normal Normal [facility] Comment on above: Performed By: #### LUIS ALFREDO SIU ####[address] Seg Neutrophils 69 % Normal 40-80 [facility] Comment on above: Performed By: #### LUIS ALFREDO SIU ####[address] Abs Baso Cnt 0.0 10*3/uL Normal 0.0-0.2 [facility] Comment on above: Performed By: #### LUIS ALFREDO SIU ####[address] Abs Eosin Cnt 0.0 10*3/uL Normal 0.0-0.5 [facility] Comment on above: Performed By: #### LUIS ALFREDO SIU ####[address] Basophils 0 % Normal 0-2 [facility] Comment on above: Performed By: ###LUIS ALFREDO SWEET ####[address] Cells counted 100 Normal [facility] Comment on above: Performed By: #### LUIS ALFREDO SIU ####[address] Eosinophils 0 % Low 1-6 [facility] Comment on above: Performed By: #### LUIS ALFREDO SIU ####[address] Manual Differentialon 2020 Absolute Baso # 0.0 10*3/uL 0.0 - 0.2 10*3/uL [facility] Absolute Eos # 0.0 10*3/uL 0.0 - 0.5 10*3/uL [facility] Absolute Lymph # 1.5 10*3/uL 1.1 - 4.5 10*3/uL [facility] Absolute Harnett # 0.5 10*3/uL 0.2 - 1.1 10*3/uL [facility] Absolute Neut # 22.8 10*3/uL High 2.2 - 8.2 10*3/uL [facility] Bands 23 % High 0 - 3 % [facility] Basophils/100 WBC (Bld) 0 % 0 - 2 % [facility] Eosinophils/100 WBC (Bld) 0 % Low 1 - 6 % [facility] Interpretation and review of laboratory results Abnormal [facility] Lymphocytes/100 WBC (Bld) 6 % Low 20 - 40 % [facility] Monocytes/100 WBC (Bld) 2 % 2 - 10 % [facility] RBC (Bld) [#/Vol] Normal [facility] Seg Neutrophils 69 % 40 - 80 % [facility] TOTAL CELLS COUNTED 100 [facility] No Panel Informationon 12-19 [facility] RAD Radiology Study observation (narrative) [facility] Work Phone: Op Noteon 12-19-2020 Op Note Normal [facility] POOLED CRYO-5 PKon 1 POOLED CRYO-5 PK Normal [facility] Comment on above: Performed By: #### P RP, LRC, SDP, CR5 ####[address] [address]#### TSGL ####[facility] 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[employer]), 1 Producton 12-19-2020 ABO and Rh group Nom (Bld) 6200 [facility] Blood product unit ID (Dose) [#] [id number] [facility] Dispense Status Blood Bank transfused [facility] Expiration Date [facility] Product Code Blood Bank [id number] [facility] Phosphoruson 12-19-2020 Phosphate [Mass/Vol] 4.0 mg/dL Normal 2.5-4.5 [facility] Comment on above: Performed By: #### M G3, PHOS3, BMP3 ####[address] [place] [address] Urine Drug Screenon 12-20-19 21 Amphetamines, urine Negative [facility] Barbiturates, Ur Negative [facility] Benzodiazepine Ur Qual Positive [facility] Cocaine Metabolites, Ur Negative [facility] Methadone, Urine Positive [facility] Opiates, Urine Negative [facility] Oxycodone Screen, Ur Negative [facility] PCP, Urine Negative [facility] XR CHEST PORTABLEon 12-20-19 [facility] Work Phone: [facility] Work Phone: Radiology Study observation (narrative) [facility] Work Phone: [phone] [facility] Work Phone: Radiology Study observation (narrative) [facility] Work Phone: XR CHEST PORTABLEOrdered By: Jerome Joseph on 12-19-2020 [facility] Work Phone: XR Shoulder Left 2 VWon 11- [facility] Work Phone: [phone] [facility] Work Phone: APTEM, Assayon 12-18-2020 [facility], A10 36 mm Low 50-70 [facility] Comment on above: Performed By: #### E XTEM, FIBTM, APTEM ####[address] [place] APTEM, A20 44 mm Low 50-70 [facility] Comment on above: Performed By: #### E XTEM, FIBTM, APTEM ####[address] [place] [facility] [place] AP[place], Alpha 55 Low 65-80 [facility] Comment on above: Performed By: #### E XTEM, FIBTM, APTEM ####[address] [place] APTEM, Clot Formation Time 196 s High 48-127 [facility] Comment on above: Performed By: #### E XTEM, FIBTM, APTEM ####[address] [place] [facility], Clotting Time 90 s High 43-82 [facility] Comment on above: Performed By: #### E XTEM, FIBTM, APTEM ####[address] [place] APTEM, Maximal Clot Firmness 50 mm Low 52-70 [facility] Comment on above: Result Comment: ROTE M viscoelastic testing is not FDA approved forthe pediatric population (<21 years of age) and theattached reference ranges pertain to adults only. Performed By: #### E XTEM, FIBTM, APTEM ####[address] [place] APTEM, A10 51 mm Normal 50-70 [facility] Comment on above: Performed By: #### A PTEM, FIBTM, EXTEM ####[address] [place] APTEM, A20 58 mm Normal 50-70 [facility] Comment on above: Performed By: #### A PTEM, FIBTM, EXTEM ####[address] [place], [place] APTEM, Alpha 71 Normal 65-80 [facility] Comment on above: Performed By: #### A PTEM, FIBTM, EXTEM ####[address] [place] APTEM, Clot Formation Time 96 s Normal 48-127 [facility] Comment on above: Performed By: #### A PTEM, FIBTM, EXTEM ####[address] [place] APTEM, Clotting Time 64 s Normal 43-82 [facility] Comment on above: Performed By: #### A PTEM, FIBTM, EXTEM ####[address] [place] APTEM, Maximal Clot Firmness 61 mm Normal 52-70 [facility] Comment on above: Result Comment: ROTE M viscoelastic testing is not FDA approved forthe pediatric population (<21 years of age) and theattached reference ranges pertain to adults only. Performed By: #### A PTEM, FIBTM, EXTEM ####[address] [place] Arterial Blood Gaseson 12-18 CO2 [Moles/Vol] 27.4 mmol/L High 23.0-27.0 [facility] Comment on above: Performed By: #### B MP3M, ICA, LFT3, HEMDF, ABG ####[address] [place] HCO3 (Bld) [Moles/Vol] 26.0 mmol/L High 21.0-25.0 [facility] Comment on above: Performed By: #### B MP3M, ICA, LFT3, HEMDF, ABG ####[address] [place] Hemoglobin (Bld) [Mass/Vol] 10.3 g/dL Normal ScreenOnly [facility] Comment on above: Performed By: #### B MP3M, ICA, LFT3, HEMDF, ABG ####[address] [place] Oxygen (Bld) [Partial pressure] 422.7 mm[Hg] High 80.0-100.0 [facility] Comment on above: Performed By: #### B MP3M, ICA, LFT3, HEMDF, ABG ####[address] [place] Oxygen saturation in Blood 98.8 % Normal 95.0-100.0 [facility] Comment on above: Performed By: #### B MP3M, ICA, LFT3, HEMDF, ABG ####[address] [place] pCO2 44.2 mm[Hg] Normal 35.0-45.0 [facility] Comment on above: Performed By: #### B MP3M, ICA, LFT3, HEMDF, ABG ####[address] [place] pH 7.388 Normal 7.350-7.450 [facility] Comment on above: Performed By: #### B MP3M, ICA, LFT3, HEMDF, ABG ####[address] Std Base Excess 0.8 mmol/L Normal -3.0-3.0 [facility] Comment on above: Performed By: #### B MP3M, ICA, LFT3, HEMDF, ABG ####[address] [place] FIO2 No data Normal [facility] Comment on above: Performed By: #### B MP3M, ICA, LFT3, HEMDF, ABG ####[address] [place] CO2 [Moles/Vol] 20.4 mmol/L Low 23.0-27.0 [facility] Comment on above: Performed By: #### C MP3, LACT3, ABG, PT/AP, HEMDF ####[address] [place] HCO3 (Bld) [Moles/Vol] 19.1 mmol/L Low 21.0-25.0 [facility] Comment on above: Performed By: #### C MP3, LACT3, ABG, PT/AP, HEMDF ####[address] [place] Hemoglobin (Bld) [Mass/Vol] 11.0 g/dL Normal ScreenOnly [facility] Comment on above: Performed By: #### C MP3, LACT3, ABG, PT/AP, HEMDF ####[address] [place] Oxygen (Bld) [Partial pressure] 414.1 mm[Hg] High 80.0-100.0 [facility] Comment on above: Performed By: #### C MP3, LACT3, ABG, PT/AP, HEMDF ####[address] [place] Oxygen saturation in Blood 98.9 % Normal 95.0-100.0 [facility] Comment on above: Performed By: #### C MP3, LACT3, ABG, PT/AP, HEMDF ####[address] [place] pCO2 43.0 mm[Hg] Normal 35.0-45.0 [facility] Comment on above: Performed By: #### C MP3, LACT3, ABG, PT/AP, HEMDF ####[address] [place], [place] pH 7.266 Low 7.350-7.450 [facility] Comment on above: Performed By: #### C MP3, LACT3, ABG, PT/AP, HEMDF ####[address] [place], [place] Std Base Excess -7.5 mmol/L Low -3.0-3.0 [facility] Comment on above: Performed By: #### C MP3, LACT3, ABG, PT/AP, HEMDF ####[address] [place] FIO2 No data Normal [facility] Comment on above: Performed By: #### C MP3, LACT3, ABG, PT/AP, HEMDF ####[address] [place], [place] Basic Metabolic Panelon 11-0 Calcium [Mass/Vol] 7.1 mg/dL Low 8.4-10.4 [facility] Comment on above: Performed By: #### B MP3M, ICA, LFT3, HEMDF, ABG ####[id number] [place], [place] Glucose [Mass/Vol] 58 mg/dL Low 70-100 [facility] Comment on above: Performed By: #### B MP3M, ICA, LFT3, HEMDF, ABG ####[id number] [place], [place] Anion gap [Moles/Vol] 1 mmol/L Low 3-13 [facility] Comment on above: Performed By: #### B MP3M, ICA, LFT3, HEMDF, ABG ####[address] [place], [place] CO2 [Moles/Vol] 25 mmol/L Normal 22-30 [facility] Comment on above: Performed By: #### B MP3M, ICA, LFT3, HEMDF, ABG ####[address] [place], [place] Creatinine [Mass/Vol] 1.11 mg/dL Normal 0.52-1.25 [facility] Comment on above: Performed By: #### B MP3M, ICA, LFT3, HEMDF, ABG ####[address] [place] [address] GFR/1.73 sq M.predicted among blacks MDRD (S/P/Bld) [Vol rate/Area] 67.6 mL/min/{1.73_m2} Normal >60 [facility] Comment on above: Performed By: #### B MP3M, ICA, LFT3, HEMDF, ABG ####[address] [place], [place] GFR/1.73 sq M.predicted among non-blacks MDRD (S/P/Bld) [Vol rate/Area] 58.3 mL/min/{1.73_m2} Abnormal >60 [facility] Comment on above: Result Comment: KDIG O guidelines provide the following GFR categories:Stage GFR(ml/min/1.73 m2) TermsG1 >=90 Normal or highG2 60-89 Mildly decreased*G3a 45-59 Mildly to moderately raehwmfovF0z 30-44 Moderately to severely decreasedG4 15-29 Severely decreasedG5 <15 Kidney failure*Relative to young adult level.In the absence of evidence of kidney damage, neither GFRcategory G1 nor G2 fulfill the criteria for CKD.The CKD-EPI equation is validated in individuals 18 yearsof age and older. Currently the best equation forestimating glomerular filtration rate (GFR) from serumcreatinine in children is the Bedside Yu equation.It is less accurate in patients with extremes of musclemass, restriction of dietary protein, ingestion of creatine,extra-renal metabolism of creatinine, or treatment withmedications that affect renal tubular creatinine secretion. Performed By: #### B MP3M, ICA, LFT3, HEMDF, ABG ####[id number] [place] [address] Urea nitrogen [Mass/Vol] 15 mg/dL Normal 9-20 [facility] Comment on above: Performed By: #### B MP3M, ICA, LFT3, HEMDF, ABG ####[address] [place] [address] Potassium [Moles/Vol] 3.9 mmol/L Normal 3.5-5.1 [facility] Comment on above: Performed By: #### B MP3M, ICA, LFT3, HEMDF, ABG ####[address] [place], [place] Sodium [Moles/Vol] 138 mmol/L Normal 135-145 [facility] Comment on above: Performed By: #### B MP3M, ICA, LFT3, HEMDF, ABG ####[address] [place], [place] Chloride [Moles/Vol] 111 mmol/L High 98-107 [facility] Comment on above: Performed By: #### B MP3M, ICA, LFT3, HEMDF, ABG ####[address] [place], [place] Calcium [Mass/Vol] 8.1 mg/dL Low 8.4-10.4 [facility] Comment on above: Performed By: #### E TOH4, HEMOG, PT/AP, BMP3, LACT3, TROPN ####[address] [place], [place] Glucose [Mass/Vol] 242 mg/dL High 70-100 [facility] Comment on above: Performed By: #### E TOH4, HEMOG, PT/AP, BMP3, LACT3, TROPN ####[address] [place], [place] Anion gap [Moles/Vol] 7 mmol/L Normal 3-13 [facility] Comment on above: Performed By: #### E TOH4, HEMOG, PT/AP, BMP3, LACT3, TROPN ####[facility] [place], [place] CO2 [Moles/Vol] 23 mmol/L Normal 22-30 [facility] Comment on above: Performed By: #### E TOH4, HEMOG, PT/AP, BMP3, LACT3, TROPN ####[address] [place], [place] Creatinine [Mass/Vol] 1.64 mg/dL High 0.52-1.25 [facility] Comment on above: Performed By: #### E TOH4, HEMOG, PT/AP, BMP3, LACT3, TROPN ####[address] [place], [place] GFR/1.73 sq M.predicted among blacks MDRD (S/P/Bld) [Vol rate/Area] 42.2 mL/min/{1.73_m2} Abnormal >60 [facility] Comment on above: Performed By: #### E TOH4, HEMOG, PT/AP, BMP3, LACT3, TROPN ####[address] [place], [place] GFR/1.73 sq M.predicted among non-blacks MDRD (S/P/Bld) [Vol rate/Area] 36.4 mL/min/{1.73_m2} Abnormal >60 [facility] Comment on above: Result Comment: KDIG O guidelines provide the following GFR categories:Stage GFR(ml/min/1.73 m2) TermsG1 >=90 Normal or highG2 60-89 Mildly decreased*G3a 45-59 Mildly to moderately pacitnnlfI8m 30-44 Moderately to severely decreasedG4 15-29 Severely decreasedG5 <15 Kidney failure*Relative to young adult level.In the absence of evidence of kidney damage, neither GFRcategory G1 nor G2 fulfill the criteria for CKD.The CKD-EPI equation is validated in individuals 18 yearsof age and older. Currently the best equation forestimating glomerular filtration rate (GFR) from serumcreatinine in children is the Bedside Yu equation.It is less accurate in patients with extremes of musclemass, restriction of dietary protein, ingestion of creatine,extra-renal metabolism of creatinine, or treatment withmedications that affect renal tubular creatinine secretion. Performed By: #### E TOH4, HEMOG, PT/AP, BMP3, LACT3, TROPN ####[id number] [place], [place] Urea nitrogen [Mass/Vol] 15 mg/dL Normal 9-20 [facility] Comment on above: Performed By: #### E TOH4, HEMOG, PT/AP, BMP3, LACT3, TROPN ####[id number] [place], [place] Potassium [Moles/Vol] 7.1 mmol/L Critically high 3.5-5.1 [facility] Comment on above: Performed By: #### E TOH4, HEMOG, PT/AP, BMP3, LACT3, TROPN ####[address] [place], [place] Chloride [Moles/Vol] 99 mmol/L Normal 98-107 [facility] Comment on above: Performed By: #### E TOH4, HEMOG, PT/AP, BMP3, LACT3, TROPN ####[address] [place], [place] Sodium [Moles/Vol] 129 mmol/L Low 135-145 [facility] Comment on above: Performed By: #### E TOH4, HEMOG, PT/AP, BMP3, LACT3, TROPN ####[address] COVID and Resp PCR Panelon 1 02-18-2020 SARS-CoV-2 (COVID-19) RNA CAPRICE+probe Ql (Unsp spec) Normal [facility] Comment on above: Performed By: #### B FRP2 ####[address] CR Ankle 3+ Views Bilateralo n 12-18-2020 CR Ankle 3+ Views Bilateral Normal [facility] CR Chest Portableon 12-19-19 21 CR Chest Portable Normal [facility] CR Elbow 3+ Views Bilateralo n 12-18-2020 CR Elbow 3+ Views Bilateral Normal [facility] CR Femur 2+ Views Bilateralo n 12-18-2020 CR Femur 2+ Views Bilateral Normal [facility] CR Forearm 2 Views Bilateral on 12-18-2020 CR Forearm 2 Views Bilateral Normal [facility] CR Hand Complete 3+ Views Bi lateralon 12-18-2020 CR Hand Complete 3+ Views Bilateral Normal [facility] CR Humerus 2+ Views Lefton 1 02-18-2020 CR Humerus 2+ Views Left Normal [facility] CR Humerus 2+ Views Righton 12-18-2020 CR Humerus 2+ Views Right Normal [facility] CR Knee 3 Views Bilateralon 12-18-2020 CR Knee 3 Views Bilateral Normal [facility] CR Pelvis 1 or 2 Viewson CR Pelvis 1 or 2 Views Normal [facility] CR Pelvis Complete Minimum 3 Viewson 12-18-2020 CR Pelvis Complete Minimum 3 Views Normal [facility] CR Tibia/Fibula 2 Views Bila teralon 12-18-2020 CR Tibia/Fibula 2 Views Bilateral Normal [facility] CT Chest/Abdomen/Pelvis (IV Only)on 12-18-2020 CT Chest/Abdomen/Pelvis (IV Only) Normal [facility] CT Head or Brain w/o Contras ton 12-18-2020 CT Head or Brain w/o Contrast Normal [facility] CT Spine Cervical w/o Contra ston 12-18-2020 CT Spine Cervical w/o Contrast Normal [facility] CTA Head/Neck w/ + w/o contr trung 12-18-2020 CTA Head/Neck w/ + w/o contrast Normal [facility] Calcium,Ionizedon 12-18-2020 Ionized Ca,Measured 3.90 mg/dL Low 4.30-5.20 [facility] Comment on above: Performed By: #### B MP3M, ICA, LFT3, HEMDF, ABG ####[facility] [place] [address] pH, Ionized Calcium 7.45 Normal 7.31-7.46 [facility] Comment on above: Performed By: #### B MP3M, ICA, LFT3, HEMDF, ABG ####[facility] [address] [place], [place] Comp Metabolic Panelon 12-18 ALP [Catalytic activity/Vol] 54 U/L Normal 38-126 [facility] Comment on above: Performed By: #### C MP3, LACT3, HEMDF, PT/AP ####[id number] [place], [place] ALT [Catalytic activity/Vol] 45 U/L High 0-34 [facility] Comment on above: Result Comment: The ALT test is performed by an updated assay method.Please note that the reference intervals have beenchanged and are now sex specific. Performed By: #### C MP3, LACT3, HEMDF, PT/AP ####[address] [place], [place] Calcium [Mass/Vol] 7.2 mg/dL Low 8.4-10.4 [facility] Comment on above: Performed By: #### C MP3, LACT3, HEMDF, PT/AP ####[address] [place], [place] Glucose [Mass/Vol] 58 mg/dL Low 70-100 [facility] Comment on above: Performed By: #### C MP3, LACT3, HEMDF, PT/AP ####[address] [place], [place] Protein [Mass/Vol] 4.5 g/dL Low 6.3-8.2 [facility] Comment on above: Performed By: #### C MP3, LACT3, HEMDF, PT/AP ####[address] [place], [place] Urea nitrogen [Mass/Vol] 15 mg/dL Normal 9-20 [facility] Comment on above: Performed By: #### C MP3, LACT3, HEMDF, PT/AP ####[address] [place], [place] Anion gap [Moles/Vol] 1 mmol/L Low 3-13 [facility] Comment on above: Performed By: #### C MP3, LACT3, HEMDF, PT/AP ####[facility] [place] [address] AST [Catalytic activity/Vol] 107 U/L High 15-46 [facility] Comment on above: Performed By: #### C MP3, LACT3, HEMDF, PT/AP ####[facility] [place] [address] Bilirubin [Mass/Vol] 1.1 mg/dL Normal 0.2-1.3 [facility] Comment on above: Performed By: #### C MP3, LACT3, HEMDF, PT/AP ####[address] [place] [address] CO2 [Moles/Vol] 25 mmol/L Normal 22-30 [facility] Comment on above: Performed By: #### C MP3, LACT3, HEMDF, PT/AP ####[address] [place], [place] Creatinine [Mass/Vol] 1.11 mg/dL Normal 0.52-1.25 [facility] Comment on above: Performed By: #### C MP3, LACT3, HEMDF, PT/AP ####[address] [place] [address] GFR/1.73 sq M.predicted among blacks MDRD (S/P/Bld) [Vol rate/Area] 67.6 mL/min/{1.73_m2} Normal >60 [facility] Comment on above: Performed By: #### C MP3, LACT3, HEMDF, PT/AP ####[address] [place] [address] GFR/1.73 sq M.predicted among non-blacks MDRD (S/P/Bld) [Vol rate/Area] 58.3 mL/min/{1.73_m2} Abnormal >60 [facility] Comment on above: Result Comment: KDIG O guidelines provide the following GFR categories:Stage GFR(ml/min/1.73 m2) TermsG1 >=90 Normal or highG2 60-89 Mildly decreased*G3a 45-59 Mildly to moderately xgusbsllvT5r 30-44 Moderately to severely decreasedG4 15-29 Severely decreasedG5 <15 Kidney failure*Relative to young adult level.In the absence of evidence of kidney damage, neither GFRcategory G1 nor G2 fulfill the criteria for CKD.The CKD-EPI equation is validated in individuals 18 yearsof age and older. Currently the best equation forestimating glomerular filtration rate (GFR) from serumcreatinine in children is the Bedside Yu equation.It is less accurate in patients with extremes of musclemass, restriction of dietary protein, ingestion of creatine,extra-renal metabolism of creatinine, or treatment withmedications that affect renal tubular creatinine secretion. Performed By: #### C MP3, LACT3, HEMDF, PT/AP ####[address] [place], [place] Chloride [Moles/Vol] 110 mmol/L High 98-107 [facility] Comment on above: Performed By: #### C MP3, LACT3, HEMDF, PT/AP ####[address] [place], [place] Potassium [Moles/Vol] 3.8 mmol/L Normal 3.5-5.1 [facility] Comment on above: Performed By: #### C MP3, LACT3, HEMDF, PT/AP ####[address] [place], [place] Sodium [Moles/Vol] 135 mmol/L Normal 135-145 [facility] Comment on above: Performed By: #### C MP3, LACT3, HEMDF, PT/AP ####[address] [place], [place] Albumin [Mass/Vol] 2.4 g/dL Low 3.5-5.0 [facility] Comment on above: Performed By: #### C MP3, LACT3, HEMDF, PT/AP ####[address] [place], [place] ALT [Catalytic activity/Vol] 29 U/L Normal 0-34 [facility] Comment on above: Result Comment: The ALT test is performed by an updated assay method.Please note that the reference intervals have beenchanged and are now sex specific. Performed By: #### C MP3, LACT3, ABG, PT/AP, HEMDF ####[address] [facility] [place] Calcium [Mass/Vol] 7.7 mg/dL Low 8.4-10.4 [facility] Comment on above: Performed By: #### C MP3, LACT3, ABG, PT/AP, HEMDF ####[address] [facility] [place] ALP [Catalytic activity/Vol] 47 U/L Normal 38-126 [facility] Comment on above: Performed By: #### C MP3, LACT3, ABG, PT/AP, HEMDF ####[address] [facility] [place] Anion gap [Moles/Vol] 6 mmol/L Normal 3-13 [facility] Comment on above: Performed By: #### C MP3, LACT3, ABG, PT/AP, HEMDF ####[address] [facility] [place] AST [Catalytic activity/Vol] 68 U/L High 15-46 [facility] Comment on above: Performed By: #### C MP3, LACT3, ABG, PT/AP, HEMDF ####[address] [facility] [place] Bilirubin [Mass/Vol] 0.7 mg/dL Normal 0.2-1.3 [facility] Comment on above: Performed By: #### C MP3, LACT3, ABG, PT/AP, HEMDF ####[address] [facility] [place] CO2 [Moles/Vol] 18 mmol/L Low 22-30 [facility] Comment on above: Performed By: #### C MP3, LACT3, ABG, PT/AP, HEMDF ####[address] [place], [place] Creatinine [Mass/Vol] 1.17 mg/dL Normal 0.52-1.25 [facility] Comment on above: Performed By: #### C MP3, LACT3, ABG, PT/AP, HEMDF ####[facility] [address] [place] GFR/1.73 sq M.predicted among blacks MDRD (S/P/Bld) [Vol rate/Area] 63.5 mL/min/{1.73_m2} Normal >60 [facility] Comment on above: Performed By: #### C MP3, LACT3, ABG, PT/AP, HEMDF ####[facility] [employer] [id number] [place], [place] GFR/1.73 sq M.predicted among non-blacks MDRD (S/P/Bld) [Vol rate/Area] 54.7 mL/min/{1.73_m2} Abnormal >60 [facility] Comment on above: Result Comment: KDIG O guidelines provide the following GFR categories:Stage GFR(ml/min/1.73 m2) TermsG1 >=90 Normal or highG2 60-89 Mildly decreased*G3a 45-59 Mildly to moderately vntdirkdrI1h 30-44 Moderately to severely decreasedG4 15-29 Severely decreasedG5 <15 Kidney failure*Relative to young adult level.In the absence of evidence of kidney damage, neither GFRcategory G1 nor G2 fulfill the criteria for CKD.The CKD-EPI equation is validated in individuals 18 yearsof age and older. Currently the best equation forestimating glomerular filtration rate (GFR) from serumcreatinine in children is the Bedside Yu equation.It is less accurate in patients with extremes of musclemass, restriction of dietary protein, ingestion of creatine,extra-renal metabolism of creatinine, or treatment withmedications that affect renal tubular creatinine secretion. Performed By: #### C MP3, LACT3, ABG, PT/AP, HEMDF ####[facility] [employer] [id number] [place], [place] Glucose [Mass/Vol] 129 mg/dL High 70-100 [facility] Comment on above: Performed By: #### C MP3, LACT3, ABG, PT/AP, HEMDF ####[facility] [employer] [id number] [place], [place] Protein [Mass/Vol] 4.4 g/dL Low 6.3-8.2 [facility] Comment on above: Performed By: #### C MP3, LACT3, ABG, PT/AP, HEMDF ####[address] [place], [place] Urea nitrogen [Mass/Vol] 14 mg/dL Normal 9-20 [facility] Comment on above: Performed By: #### C MP3, LACT3, ABG, PT/AP, HEMDF ####[address] [place], [place] Potassium [Moles/Vol] 5.2 mmol/L High 3.5-5.1 [facility] Comment on above: Performed By: #### C MP3, LACT3, ABG, PT/AP, HEMDF ####[address] [place] Albumin [Mass/Vol] 2.3 g/dL Low 3.5-5.0 [facility] Comment on above: Performed By: #### C MP3, LACT3, ABG, PT/AP, HEMDF ####[address] [place] Chloride [Moles/Vol] 111 mmol/L High 98-107 [facility] Comment on above: Performed By: #### C MP3, LACT3, ABG, PT/AP, HEMDF ####[address] [place], [place] Sodium [Moles/Vol] 134 mmol/L Low 135-145 [facility] Comment on above: Performed By: #### C MP3, LACT3, ABG, PT/AP, HEMDF ####[address] [place], [place] ED Provider Noteon ED Provider Note Normal [facility] EXTEM Assayon 12-18-2020 EXTEM, A10 42 mm Low 50-70 [facility] Comment on above: Performed By: #### F IBTM, EXTEM ####[address] [facility] [place] EXTEM, A20 50 mm Normal 50-70 [facility] Comment on above: Performed By: #### F IBTM, EXTEM ####[facility] [facility] EXTEM, Alpha 62 Low 65-80 [facility] Comment on above: Performed By: #### F IBTM, EXTEM ####[address] [facility] [place] EXTEM, Clot Formation Time 147 s High 48-127 [facility] Comment on above: Performed By: #### F IBTM, EXTEM ####[address] [place] EXTEM, Clotting Time 66 s Normal 43-82 [facility] Comment on above: Performed By: #### F IBTM, EXTEM ####[address] [place], [place] EXTEM, Maximal Clot Firmness 53 mm Normal 52-70 [facility] Comment on above: Result Comment: ROTE M viscoelastic testing is not FDA approved forthe pediatric population (<21 years of age) and theattached reference ranges pertain to adults only. Performed By: #### F IBTM, EXTEM ####[address] [place] EXTEM, A10 40 mm Low 50-70 [facility] Comment on above: Performed By: #### E XTEM, FIBTM, APTEM ####[address] [facility] EXTEM, A20 48 mm Low 50-70 [facility] Comment on above: Performed By: #### E XTEM, FIBTM, APTEM ####[address] [facility] EXTEM, Alpha 62 Low 65-80 [facility] Comment on above: Performed By: #### E XTEM, FIBTM, APTEM ####[address] [facility] EXTEM, Clot Formation Time 150 s High 48-127 [facility] Comment on above: Performed By: #### E XTEM, FIBTM, APTEM ####[address] [place] EXTEM, Clotting Time 68 s Normal 43-82 [facility] Comment on above: Performed By: #### E XTEM, FIBTM, APTEM ####[address] [place] EXTEM, Maximal Clot Firmness 51 mm Low 52-70 [facility] Comment on above: Result Comment: ROTE M viscoelastic testing is not FDA approved forthe pediatric population (<21 years of age) and theattached reference ranges pertain to adults only. Performed By: #### E XTEM, FIBTM, APTEM ####[address] [place] EXTEM, A10 51 mm Normal 50-70 [facility] Comment on above: Performed By: #### A PTEM, FIBTM, EXTEM ####[address] [place], [place] EXTEM, A20 59 mm Normal 50-70 [facility] Comment on above: Performed By: #### A PTEM, FIBTM, EXTEM ####[address] [place], [place] EXTEM, Alpha 71 Normal 65-80 [facility] Comment on above: Performed By: #### A PTEM, FIBTM, EXTEM ####[address] [place], [place] EXTEM, Clot Formation Time 96 s Normal 48-127 [facility] Comment on above: Performed By: #### A PTEM, FIBTM, EXTEM ####[address] [place] EXTEM, Clotting Time 66 s Normal 43-82 [facility] Comment on above: Performed By: #### A PTEM, FIBTM, EXTEM ####[address] [place] [address] EXTEM, Maximal Clot Firmness 62 mm Normal 52-70 [facility] Comment on above: Result Comment: ROTE M viscoelastic testing is not FDA approved forthe pediatric population (<21 years of age) and theattached reference ranges pertain to adults only. Performed By: #### A PTEM, FIBTM, EXTEM ####[facility] [address] [place] [address] Ethanol Serum/Plasmaon 12-18 Ethanol-Serum/Plasma < 0.010 Normal 0.000-0.010 [facility] Comment on above: Result Comment: NOTE : This result is for medical treatment only. Analysis performed using non-forensic procedures. Performed By: #### E TOH4, HEMOG, PT/AP, BMP3, LACT3, TROPN ####[facility] [employer] [id number] [place] [address] FIBTEM, Assayon 12-18-2020 FIBTEM, A10 9 mm Normal [facility] Comment on above: Performed By: #### F IBTM, EXTEM ####[facility] [address] [place] [address] FIBTEM, A20 9 mm Normal [facility] Comment on above: Performed By: #### F IBTM, EXTEM ####[facility] [address] [place] [address] FIBTEM, Maximal Clot Firmness 10 mm Normal 7-24 [facility] Comment on above: Result Comment: ROTE M viscoelastic testing is not FDA approved forthe pediatric population (<21 years of age) and theattached reference ranges pertain to adults only. Performed By: #### F IBTM, EXTEM ####[facility] [employer] [id number] [place] [address] FIBTEM, A10 9 mm Normal [facility] Comment on above: Performed By: #### E XTEM, FIBTM, APTEM ####[facility] [employer] [id number] [place] [address] FIBTEM, A20 10 mm Normal [facility] Comment on above: Performed By: #### E XTEM, FIBTM, APTEM ####[facility] [place], [place] FIBTEM, Maximal Clot Firmness 10 mm Normal 7-24 [facility] Comment on above: Result Comment: ROTE M viscoelastic testing is not FDA approved [facility] population (<21 years of age) and theattached reference ranges pertain to adults only. Performed By: #### E XTEM, FIBTM, APTEM ####[address] [place] FIBTEM, A10 14 mm Normal [facility] Comment on above: Performed By: #### A PTEM, FIBTM, EXTEM ####[address] [place] FIBTEM, A20 18 mm Normal [facility] Comment on above: Performed By: #### A PTEM, FIBTM, EXTEM ####[address] [place], [place] FIBTEM, Maximal Clot Firmness 19 mm Normal 7-24 [facility] Comment on above: Result Comment: ROTE M viscoelastic testing is not FDA approved forthe pediatric population (<21 years of age) and theattached reference ranges pertain to adults only. Performed By: #### A PTEM, FIBTM, EXTEM ####[address] [place], [place] Hemogramon 12-18-2020 Erythrocyte distribution width (RBC) [Ratio] 15.1 % High 11.5-14.5 [facility] Comment on above: Performed By: #### E TOH4, HEMOG, PT/AP, BMP3, LACT3, TROPN ####[address] [place], [place] Hematocrit (Bld) [Volume fraction] 39.2 % Normal 35.0-47.0 [facility] Comment on above: Performed By: #### E TOH4, HEMOG, PT/AP, BMP3, LACT3, TROPN ####[address] [place], [place] Hemoglobin (Bld) [Mass/Vol] 12.5 g/dL Normal 11.7-16.0 [facility] Comment on above: Performed By: #### E TOH4, HEMOG, PT/AP, BMP3, LACT3, TROPN ####[id number] [place], [place] MCH (RBC) [Entitic mass] 28.2 pg Normal 26.0-34.0 [facility] Comment on above: Performed By: #### E TOH4, HEMOG, PT/AP, BMP3, LACT3, TROPN ####[address] MCHC 31.8 % Low 32.0-36.0 [facility] Comment on above: Performed By: #### E TOH4, HEMOG, PT/AP, BMP3, LACT3, TROPN ####[id number] [place], [place] MCV (RBC) [Entitic vol] 88.5 fL Normal 79.0-98.0 [facility] Comment on above: Performed By: #### E TOH4, HEMOG, PT/AP, BMP3, LACT3, TROPN ####[id number] [place], [place] Platelet mean volume (Bld) [Entitic vol] 8.6 fL Normal 7.4-10.4 [facility] Comment on above: Performed By: #### E TOH4, HEMOG, PT/AP, BMP3, LACT3, TROPN ####[id number] [place], [place] Platelets (Bld) [#/Vol] 178 10*3/uL Normal 140-440 [facility] Comment on above: Performed By: #### E TOH4, HEMOG, PT/AP, BMP3, LACT3, TROPN ####[id number] [place], [place] RBC (Bld) [#/Vol] 4.44 10*6/uL Normal 3.80-5.20 [facility] Comment on above: Performed By: #### E TOH4, HEMOG, PT/AP, BMP3, LACT3, TROPN ####[id number] [place], [place] WBC (Bld) [#/Vol] 19.5 10*3/uL High 3.6-10.7 [facility] Comment on above: Performed By: #### E TOH4, HEMOG, PT/AP, BMP3, LACT3, TROPN ####[id number] [place], [place] Hemogram w/ Autodiffon 12-18 Abs Baso Cnt 0.1 10*3/uL Normal 0.0-0.2 [facility] Comment on above: Performed By: #### C MP3, LACT3, HEMDF, PT/AP ####[address] Abs Neutrophile Cnt 8.6 10*3/uL High 1.8-7.0 [facility] Comment on above: Performed By: #### C MP3, LACT3, HEMDF, PT/AP ####[address] [place], [place] Basophils/100 WBC (Bld) 0.5 % Normal 0.0-2.0 [facility] Comment on above: Performed By: #### C MP3, LACT3, HEMDF, PT/AP ####[address] Eosinophils (Bld) [#/Vol] 0.1 10*3/uL Normal 0.0-0.5 [facility] Comment on above: Performed By: #### C MP3, LACT3, HEMDF, PT/AP ####[address] Eosinophils/100 WBC (Bld) 0.5 % Low 1.0-6.0 [facility] Comment on above: Performed By: #### C MP3, LACT3, HEMDF, PT/AP ####[address] [place], [place] Erythrocyte distribution width (RBC) [Ratio] 15.3 % High 11.5-14.5 [facility] Comment on above: Performed By: #### C MP3, LACT3, HEMDF, PT/AP ####[address] [place], [place] Granulocytes/100 WBC (Bld) 83.9 % High 40.0-80.0 [facility] Comment on above: Performed By: #### C MP3, LACT3, HEMDF, PT/AP ####[address] Hematocrit (Bld) [Volume fraction] 28.7 % Low 35.0-47.0 [facility] Comment on above: Performed By: #### C MP3, LACT3, HEMDF, PT/AP ####[address] [place], [place] Hemoglobin (Bld) [Mass/Vol] 9.5 g/dL Low 11.7-16.0 [facility] Comment on above: Performed By: #### C MP3, LACT3, HEMDF, PT/AP ####[address] Lymphocytes (Bld) [#/Vol] 1.2 10*3/uL Normal 1.0-4.3 [facility] Comment on above: Performed By: #### C MP3, LACT3, HEMDF, PT/AP ####[address] Lymphocytes/100 WBC (Bld) 11.3 % Low 20.0-40.0 [facility] Comment on above: Performed By: #### C MP3, LACT3, HEMDF, PT/AP ####[address] MCH (RBC) [Entitic mass] 28.9 pg Normal 26.0-34.0 [facility] Comment on above: Performed By: #### C MP3, LACT3, HEMDF, PT/AP ####[address] MCHC 33.2 % Normal 32.0-36.0 [facility] Comment on above: Performed By: #### C MP3, LACT3, HEMDF, PT/AP ####[address] [place], [place] MCV (RBC) [Entitic vol] 86.9 fL Normal 79.0-98.0 [facility] Comment on above: Performed By: #### C MP3, LACT3, HEMDF, PT/AP ####[address] [place], [place] Monocytes (Bld) [#/Vol] 0.4 10*3/uL Normal 0.0-0.8 [facility] Comment on above: Performed By: #### C MP3, LACT3, HEMDF, PT/AP ####[address] [place], [place] Monocytes/100 WBC (Bld) 3.8 % Normal 2.0-10.0 [facility] Comment on above: Performed By: #### C MP3, LACT3, HEMDF, PT/AP ####[address] [place], [place] Platelet mean volume (Bld) [Entitic vol] 7.7 fL Normal 7.4-10.4 [facility] Comment on above: Performed By: #### C MP3, LACT3, HEMDF, PT/AP ####[address] [place], [place] Platelets (Bld) [#/Vol] 106 10*3/uL Low 140-440 [facility] Comment on above: Performed By: #### C MP3, LACT3, HEMDF, PT/AP ####[address] [place] RBC (Bld) [#/Vol] 3.30 10*6/uL Low 3.80-5.20 [facility] Comment on above: Performed By: #### C MP3, LACT3, HEMDF, PT/AP ####[address] [place], [place] WBC (Bld) [#/Vol] 10.3 10*3/uL Normal 3.6-10.7 [facility] Comment on above: Performed By: #### C MP3, LACT3, HEMDF, PT/AP ####[address] [place], [place] Abs Baso Cnt 0.1 10*3/uL Normal 0.0-0.2 [facility] Comment on above: Performed By: #### C MP3, LACT3, ABG, PT/AP, HEMDF ####[address] [place], [place] Abs Neutrophile Cnt 9.7 10*3/uL High 1.8-7.0 [facility] Comment on above: Performed By: #### C MP3, LACT3, ABG, PT/AP, HEMDF ####[address] [place] Basophils/100 WBC (Bld) 0.5 % Normal 0.0-2.0 [facility] Comment on above: Performed By: #### C MP3, LACT3, ABG, PT/AP, HEMDF ####[address] [place] Eosinophils (Bld) [#/Vol] 0.1 10*3/uL Normal 0.0-0.5 [facility] Comment on above: Performed By: #### C MP3, LACT3, ABG, PT/AP, HEMDF ####[address] [place] Eosinophils/100 WBC (Bld) 0.7 % Low 1.0-6.0 [facility] Comment on above: Performed By: #### C MP3, LACT3, ABG, PT/AP, HEMDF ####[address] [place] Erythrocyte distribution width (RBC) [Ratio] 15.5 % High 11.5-14.5 [facility] Comment on above: Performed By: #### C MP3, LACT3, ABG, PT/AP, HEMDF ####[address] [place] Granulocytes/100 WBC (Bld) 81.9 % High 40.0-80.0 [facility] Comment on above: Performed By: #### C MP3, LACT3, ABG, PT/AP, HEMDF ####[address] [place] Hematocrit (Bld) [Volume fraction] 32.4 % Low 35.0-47.0 [facility] Comment on above: Performed By: #### C MP3, LACT3, ABG, PT/AP, HEMDF ####[address] [place] Hemoglobin (Bld) [Mass/Vol] 10.3 g/dL Low 11.7-16.0 [facility] Comment on above: Result Comment: REPE ATED Performed By: #### C MP3, LACT3, ABG, PT/AP, HEMDF ####[address] [place] Lymphocytes (Bld) [#/Vol] 1.8 10*3/uL Normal 1.0-4.3 [facility] Comment on above: Performed By: #### C MP3, LACT3, ABG, PT/AP, HEMDF ####[address] [place] Lymphocytes/100 WBC (Bld) 15.5 % Low 20.0-40.0 [facility] Comment on above: Performed By: #### C MP3, LACT3, ABG, PT/AP, HEMDF ####[address] [place] MCH (RBC) [Entitic mass] 28.2 pg Normal 26.0-34.0 [facility] Comment on above: Performed By: #### C MP3, LACT3, ABG, PT/AP, HEMDF ####[address] [place] MCHC 31.9 % Low 32.0-36.0 [facility] Comment on above: Performed By: #### C MP3, LACT3, ABG, PT/AP, HEMDF ####[address] [place] MCV (RBC) [Entitic vol] 88.6 fL Normal 79.0-98.0 [facility] Comment on above: Performed By: #### C MP3, LACT3, ABG, PT/AP, HEMDF ####[address] [place] Monocytes (Bld) [#/Vol] 0.2 10*3/uL Normal 0.0-0.8 [facility] Comment on above: Performed By: #### C MP3, LACT3, ABG, PT/AP, HEMDF ####[address] Monocytes/100 WBC (Bld) 1.4 % Low 2.0-10.0 [facility] Comment on above: Performed By: #### C MP3, LACT3, ABG, PT/AP, HEMDF ####[address] [place] Platelet mean volume (Bld) [Entitic vol] 7.6 fL Normal 7.4-10.4 [facility] Comment on above: Performed By: #### C MP3, LACT3, ABG, PT/AP, HEMDF ####[address] [place], [place] Platelets (Bld) [#/Vol] 119 10*3/uL Low 140-440 [facility] Comment on above: Result Comment: REPE ATED Performed By: #### C MP3, LACT3, ABG, PT/AP, HEMDF ####[address] [place] RBC (Bld) [#/Vol] 3.66 10*6/uL Low 3.80-5.20 [facility] Comment on above: Performed By: #### C MP3, LACT3, ABG, PT/AP, HEMDF ####[address] [place] WBC (Bld) [#/Vol] 11.9 10*3/uL High 3.6-10.7 [facility] Comment on above: Performed By: #### C MP3, LACT3, ABG, PT/AP, HEMDF ####[address] [place], [place] Hepatic Functionon ALP [Catalytic activity/Vol] 56 U/L Normal 38-126 [facility] Comment on above: Performed By: #### B MP3M, ICA, LFT3, HEMDF, ABG ####[address] [place], [place] ALT [Catalytic activity/Vol] 44 U/L High 0-34 [facility] Comment on above: Result Comment: The ALT test is performed by an updated assay method.Please note that the reference intervals have beenchanged and are now sex specific. Performed By: #### B MP3M, ICA, LFT3, HEMDF, ABG ####[id number] [place], [place] AST [Catalytic activity/Vol] 108 U/L High 15-46 [facility] Comment on above: Performed By: #### B MP3M, ICA, LFT3, HEMDF, ABG ####[address] [place], [place] Bilirubin [Mass/Vol] 1.2 mg/dL Normal 0.2-1.3 [facility] Comment on above: Performed By: #### B MP3M, ICA, LFT3, HEMDF, ABG ####[address] [place] Bilirubin.indirect [Mass/Vol] 0.0 mg/dL Normal 0.0-0.3 [facility] Comment on above: Performed By: #### B MP3M, ICA, LFT3, HEMDF, ABG ####[address] [place] Protein [Mass/Vol] 4.4 g/dL Low 6.3-8.2 [facility] Comment on above: Performed By: #### B MP3M, ICA, LFT3, HEMDF, ABG ####[address] [place] Albumin [Mass/Vol] 2.3 g/dL Low 3.5-5.0 [facility] Comment on above: Performed By: #### B MP3M, ICA, LFT3, HEMDF, ABG ####[address] [place] Lactic Acidon 12-18-2020 Lactate [Moles/Vol] 1.4 mmol/L Normal 0.7-2.0 [facility] Comment on above: Performed By: #### C MP3, LACT3, HEMDF, PT/AP ####[address] [place] Lactate [Moles/Vol] 3.9 mmol/L Critically high 0.7-2.0 [facility] Comment on above: Result Comment: Crit [facility] Panic Lactate has fallen below the [facility] CCL/EDPanic Call Protocol. For [facility] ED patients ONLY the LactateLevels greater than 2.0 and less than or equal to 4.0 mmol/Lfall under the Panic Call Policy. Performed By: #### C MP3, LACT3, ABG, PT/AP, HEMDF ####[id number] [place], [place] Lactate [Moles/Vol] 4.7 mmol/L Critically high 0.7-2.0 [facility] Comment on above: Performed By: #### E TOH4, HEMOG, PT/AP, BMP3, LACT3, TROPN ####[address] [place], [place] Leukodepleted Red Cellson Leukodepleted Red Cells Normal [facility] Comment on above: Performed By: #### P RP, LRC, SDP, CR5 ####[address] [address]#### TSGL ####[facility] Leukodepleted Red Cells Normal [facility] Comment on above: Performed By: #### P RP, LRC, SDP, CR5 ####[address] [address]#### TSGL ####[facility] Op Noteon 12-18-2020 Op Note Normal [facility] PATHOGEN REDUCED LR PPHRon 1 02-18-2020 PATHOGEN REDUCED LR PPHR Normal [facility] Comment on above: Performed By: #### P RP, LRC, SDP, CR5 ####[address] [address]#### TSGL ####[facility] Protime AND APTTon aPTT Coag (Bld) [Time] 30.8 s High 20.0-30.5 [facility] Comment on above: Result Comment: NOTE : The therapeutic time for Heparin anticoagulation,based on Xa activity inhibition, is an APTT of 46-80seconds. Performed By: #### C MP3, LACT3, HEMDF, PT/AP ####[address] [place] [address] INR 1.2 High 0.9-1.1 [facility] Comment on above: Result Comment: Leno mmended Anticoagulant Therapy: SEE BELOW----- INR of 2.0 - 3.0 : - Prophylaxis of Venous Thrombosis (high-risk surgery) - Treatment of Venous Thrombosis - Treatment of Pulmonary Embolism (Includes tissue heart valves, Acute Myocardial Infarction to prevent systemic embolism, Valvular Heart Disease, and Atrial Fibrillation)----- INR of 2.5 - 3.5 : - Mechanical Prosthetic Valves (high risk) - If oral anticoagulant therapy is used to prevent Myocardial Infarction Performed By: #### C MP3, LACT3, HEMDF, PT/AP ####[id number] [place] [id number] PT Coag (PPP) [Time] 13.0 s High 9.0-12.0 [facility] Comment on above: Result Comment: . Performed By: #### C MP3, LACT3, HEMDF, PT/AP ####[facility] [employer] [id number] [place], [place] aPTT Coag (Bld) [Time] 32.2 s High 20.0-30.5 [facility] Comment on above: Result Comment: NOTE : The therapeutic time for Heparin anticoagulation,based on Xa activity inhibition, is an APTT of 46-80seconds. Performed By: #### C MP3, LACT3, ABG, PT/AP, HEMDF ####[facility] [employer] [id number] [place], [place] INR 1.3 High 0.9-1.1 [facility] Comment on above: Result Comment: Leno mmended Anticoagulant Therapy: SEE BELOW----- INR of 2.0 - 3.0 : - Prophylaxis of Venous Thrombosis (high-risk surgery) - Treatment of Venous Thrombosis - Treatment of Pulmonary Embolism (Includes tissue heart valves, Acute Myocardial Infarction to prevent systemic embolism, Valvular Heart Disease, and Atrial Fibrillation)----- INR of 2.5 - 3.5 : - Mechanical Prosthetic Valves (high risk) - If oral anticoagulant therapy is used to prevent Myocardial Infarction Performed By: #### C MP3, LACT3, ABG, PT/AP, HEMDF ####[facility] [employer] [id number] [place], [place] PT Coag (PPP) [Time] 13.4 s High 9.0-12.0 [facility] [employer] [facility] Comment on above: Result Comment: . Performed By: #### C MP3, LACT3, ABG, PT/AP, HEMDF ####[facility] [employer] [id number] [place], [place] aPTT Coag (Bld) [Time] 29.6 s Normal 20.0-30.5 [facility] Comment on above: Result Comment: NOTE : The therapeutic time for Heparin anticoagulation,based on Xa activity inhibition, is an APTT of 46-80seconds. Performed By: #### E TOH4, HEMOG, PT/AP, BMP3, LACT3, TROPN ####[facility] [employer] [id number] [place], [place] INR 1.0 Normal 0.9-1.1 [facility] Comment on above: Result Comment: Leno mmended Anticoagulant Therapy: SEE BELOW----- INR of 2.0 - 3.0 : - Prophylaxis of Venous Thrombosis (high-risk surgery) - Treatment of Venous Thrombosis - Treatment of Pulmonary Embolism (Includes tissue heart valves, Acute Myocardial Infarction to prevent systemic embolism, Valvular Heart Disease, and Atrial Fibrillation)----- INR of 2.5 - 3.5 : - Mechanical Prosthetic Valves (high risk) - If oral anticoagulant therapy is used to prevent Myocardial Infarction Performed By: #### E TOH4, HEMOG, PT/AP, BMP3, LACT3, TROPN ####[address] PT Coag (PPP) [Time] 11.0 s Normal 9.0-12.0 [facility] Comment on above: Result Comment: . Performed By: #### E TOH4, HEMOG, PT/AP, BMP3, LACT3, TROPN ####[address] Single Donor Plasma (CP2D)on 12-18-2020 Single Donor Plasma (CP2D) Normal [facility] Comment on above: Performed By: #### P RP, LRC, SDP, CR5 ####[address] [address]#### TSGL ####[facility] Surgical Pathologyon 021 Surgical Pathology Normal [facility] TS GELon 12-18-2020 TS GEL ABO Group: A Rh, Gel: POS Antibody Screen Gel: NEG Normal [facility] Comment on above: Performed By: #### P RP, LRC, SDP, CR5 ####[address] [address]#### TSGL ####[facility] TYPE AND SCREENon 12-18-2020 ABO and Rh group Nom (Bld) Blood group A Rh(D) positive Normal [facility] Comment on above: Performed By: #### T S #### [facility] [address] [place] [address], ABO and Rh group Nom (Bld) No Previous Results Normal [facility] Comment on above: Performed By: #### T S #### [facility] [address] [place], [place], ABSC INT Negative Normal [facility] Comment on above: Result Comment: T&S TESTING PERFORMED BY RC Performed By: #### T S #### [facility] [address] [place], [place], Troponin Ion 12-18-2020 Troponin I.cardiac [Mass/Vol] 0.014 ng/mL Normal 0.000-0.034 [facility] Comment on above: Result Comment: . Performed By: #### E TOH4, HEMOG, PT/AP, BMP3, LACT3, TROPN ####[facility] [place] [address] HEPACon 08-05-2020 Hep A IgM Ab Non-Reactive Normal Non-Reactive [facility] ([place]) Comment on above: Performed By: #### C BC, FES, LIPID, ADIFF, TSH, BMP, MG, ANEU #### [address] [address] #### VIDH, GFR, T4, A1C, HEPAC #### [address] [address] Hep A IgM Ab Int Normal [facility] ([place]) Comment on above: Result Comment: No s erological evidence of a current Hepatitis A infection. See Interp Performed By: #### C BC, FES, LIPID, ADIFF, TSH, BMP, MG, ANEU #### [address] [address] #### VIDH, GFR, T4, A1C, HEPAC #### [address] [address] Hep B Core IgM Ab Non-Reactive Normal Non-Reactive [facility] ([place]) Comment on above: Performed By: #### C BC, FES, LIPID, ADIFF, TSH, BMP, MG, ANEU #### [address] [address] #### VIDH, GFR, T4, A1C, HEPAC #### [place] [id number] Hep B Core IgM Ab Int Normal [facility] ([place]) Comment on above: Result Comment: Samp les with a value < 0.80 Index are considered nonreactive (negative) for IgM antibodies to hepatitis B core antigen. See Interp Performed By: #### C BC, FES, LIPID, ADIFF, TSH, BMP, MG, ANEU #### [place] [address] #### VIDH, GFR, T4, A1C, HEPAC #### [place] [id number] Hep B Surf Ag Non-Reactive Normal Non-Reactive [facility] ([place]) Comment on above: Performed By: #### C BC, FES, LIPID, ADIFF, TSH, BMP, MG, ANEU #### [place] [address] #### VIDH, GFR, T4, A1C, HEPAC #### [place] [address] Hep C Ab Reactive Abnormal Non-Reactive [facility] ([place]) Comment on above: Performed By: #### C BC, FES, LIPID, ADIFF, TSH, BMP, MG, ANEU #### [place] [address] #### VIDH, GFR, T4, A1C, HEPAC #### [place] [address] Hep C Ab Int Normal [facility] ([place]) Comment on above: Result Comment: Reac tive: Samples with a value >/= 1.00 index are considered reactive for IgG antibodies to HCV. The presence of anti-HCV may be indicative of recent and/or past infection by Hepatitis C Virus. PATIENT MAY BE INFECTIONS. PLEASE INFORM INSURANCE BILLING SPECIALIST. Supplemental testing for HCV RNA may detect the presence of active HCV infection. This result is a reportable disease Infection Control has been notified. See Interp Performed By: #### C BC, FES, LIPID, ADIFF, TSH, BMP, MG, ANEU #### [address] [address] #### VIDH, GFR, T4, A1C, HEPAC #### [address] [address] T4on 08-05-2020 T4 [Mass/Vol] 5.6 ug/dL Normal 4.5-10.9 [facility] ([place]) Comment on above: Result Comment: No te - New Reference Range in effect 19 Performed By: #### C BC, FES, LIPID, ADIFF, TSH, BMP, MG, ANEU #### [place] [address] #### VIDH, GFR, T4, A1C, HEPAC #### [place] [address] VIDHon 08-05-2020 Vit. D 25-Hydroxy 20.0 ng/mL Normal [facility] ([place]) Comment on above: Result Comment: Inte rpretive Values Based on Total 25(OH)D: Severe Deficiency <20 ng/mL Mild to Moderate Deficiency 20-30 ng/mL Optimum Levels 30-100 ng/mL Toxicity Possible >100 ng/mL Performed By: #### C BC, FES, LIPID, ADIFF, TSH, BMP, MG, ANEU #### [place] [address] #### VIDH, GFR, T4, A1C, HEPAC #### [address] [address] .Auto Diffon 08-04-2020 Basophil, Absolute 0.10 10 3/mcL Normal 0.00-0.19 [facility] ([place]) Comment on above: Performed By: #### C BC, FES, LIPID, ADIFF, TSH, BMP, MG, ANEU #### [place] [address] #### VIDH, GFR, T4, A1C, HEPAC #### [place] [address] Basophils/100 WBC (Bld) 0.7 % Normal 0.0-2.5 [facility] ([place]) Comment on above: Performed By: #### C BC, FES, LIPID, ADIFF, TSH, BMP, MG, ANEU #### [address] [address] #### VIDH, GFR, T4, A1C, HEPAC #### [address] [address] Eosinophil, Absolute 0.20 10 3/mcL Normal 0.00-0.40 [facility] ([place]) Comment on above: Performed By: #### C BC, FES, LIPID, ADIFF, TSH, BMP, MG, ANEU #### [address] [address] #### VIDH, GFR, T4, A1C, HEPAC #### [address] [address] Eosinophils/100 WBC (Bld) 2.6 % Normal 0.0-7.0 [facility] ([place]) Comment on above: Performed By: #### C BC, FES, LIPID, ADIFF, TSH, BMP, MG, ANEU #### [address] [address] #### VIDH, GFR, T4, A1C, HEPAC #### [address] [address] Lymphocyte, Absolute 2.30 10 3/mcL Normal 0.77-3.85 [facility] ([place]) Comment on above: Performed By: #### C BC, FES, LIPID, ADIFF, TSH, BMP, MG, ANEU #### [address] [address] #### VIDH, GFR, T4, A1C, HEPAC #### [address] [address] Lymphocytes/100 WBC (Bld) 26.3 % Normal 10.0-50.0 [facility] ([place]) Comment on above: Performed By: #### C BC, FES, LIPID, ADIFF, TSH, BMP, MG, ANEU #### [place] [address] #### VIDH, GFR, T4, A1C, HEPAC #### [address] [address] Monocyte, Absolute 0.20 10 3/mcL Normal 0.15-1.00 [facility] ([place]) Comment on above: Performed By: #### C BC, FES, LIPID, ADIFF, TSH, BMP, MG, ANEU #### [address] [address] #### VIDH, GFR, T4, A1C, HEPAC #### [address] [address] Monocytes/100 WBC (Bld) 2.8 % Normal 1.7-13.0 [facility] ([place]) Comment on above: Performed By: #### C BC, FES, LIPID, ADIFF, TSH, BMP, MG, ANEU #### [address] [address] #### VIDH, GFR, T4, A1C, HEPAC #### [address] [address] Neutrophils/100 WBC (Bld) 67.6 % Normal 37.0-80.0 [facility] ([place]) Comment on above: Performed By: #### C BC, FES, LIPID, ADIFF, TSH, BMP, MG, ANEU #### [address] [address] #### VIDH, GFR, T4, A1C, HEPAC #### [address] [address] .GFRon 08-04-2020 GFR 93 ml/min/1.73sqm Normal [facility] ([place]) Comment on above: Result Comment: GFR Population mean for , Non- Americans Ages 20-29 = 116 mL/min/1.73 sq.m. Ages 30-39 = 107 mL/min/1.73 sq.m. Ages 40-49 = 99 mL/min/1.73 sq.m. Ages 50-59 = 93 mL/min/1.73 sq.m. Ages 60-69 = 85 mL/min/1.73 sq.m. Ages 70+ = 75 mL/min/1.73 sq.m. Chronic Kidney Disease: Less than 60 mL/min/1.73 square meters End Stage Renal Disease: Less than 15 mL/min/1.73 square meters Performed By: #### C BC, FES, LIPID, ADIFF, TSH, BMP, MG, ANEU #### [address] [id number] #### VIDH, GFR, T4, A1C, HEPAC #### [address] [address] GFR Non- 77 ml/min/1.73sqm Normal [facility] ([place]) Comment on above: Result Comment: GFR Population mean for , Non- Americans Ages 20-29 = 116 mL/min/1.73 sq.m. Ages 30-39 = 107 mL/min/1.73 sq.m. Ages 40-49 = 99 mL/min/1.73 sq.m. Ages 50-59 = 93 mL/min/1.73 sq.m. Ages 60-69 = 85 mL/min/1.73 sq.m. Ages 70+ = 75 mL/min/1.73 sq.m. Chronic Kidney Disease: Less than 60 mL/min/1.73 square meters End Stage Renal Disease: Less than 15 mL/min/1.73 square meters Performed By: #### C BC, FES, LIPID, ADIFF, TSH, BMP, MG, ANEU #### [address] [id number] #### VIDH, GFR, T4, A1C, HEPAC #### [address] [id number] .NEUABSon 08-04-2020 Neutrophil, Absolute 5.90 10 3/mcL Normal 2.85-6.16 A [facility] ([place]) Comment on above: Performed By: #### C BC, FES, LIPID, ADIFF, TSH, BMP, MG, ANEU #### [address] [id number] #### VIDH, GFR, T4, A1C, HEPAC #### [address] [address] A1Con 08-04-2020 HbA1c (Bld) [Mass fraction] 5.6 % Normal 4.3-6.4 [facility] ([place]) Comment on above: Performed By: #### C BC, FES, LIPID, ADIFF, TSH, BMP, MG, ANEU #### [address] [address] #### VIDH, GFR, T4, A1C, HEPAC #### [address] [address] BMPon 08-04-2020 BUN/Creatinine Ratio 18 ratio Normal 7-27 [facility] ([place]) Comment on above: Performed By: #### C BC, FES, LIPID, ADIFF, TSH, BMP, MG, ANEU #### [address] [address] #### VIDH, GFR, T4, A1C, HEPAC #### [address] [address] Calcium [Mass/Vol] 8.7 mg/dL Normal 8.4-10.2 [facility] ([place]) Comment on above: Performed By: #### C BC, FES, LIPID, ADIFF, TSH, BMP, MG, ANEU #### [address] [address] #### VIDH, GFR, T4, A1C, HEPAC #### [address] [address] Chloride [Moles/Vol] 99 mmol/L Normal 98-107 [facility] ([place]) Comment on above: Performed By: #### C BC, FES, LIPID, ADIFF, TSH, BMP, MG, ANEU #### [address] [address] #### VIDH, GFR, T4, A1C, HEPAC #### [address] [address] CO2 [Moles/Vol] 29 mmol/L Normal 22-29 [facility] ([place]) Comment on above: Performed By: #### C BC, FES, LIPID, ADIFF, TSH, BMP, MG, ANEU #### [address] [address] #### VIDH, GFR, T4, A1C, HEPAC #### [address] [address] Creatinine [Mass/Vol] 0.80 mg/dL Normal 0.55-1.02 [facility] ([place]) Comment on above: Performed By: #### C BC, FES, LIPID, ADIFF, TSH, BMP, MG, ANEU #### [address] [address] #### VIDH, GFR, T4, A1C, HEPAC #### [address] [address] Electrolyte Balance 9.0 mEq/L Normal [facility] ([place]) Comment on above: Performed By: #### C BC, FES, LIPID, ADIFF, TSH, BMP, MG, ANEU #### [place] [address] #### VIDH, GFR, T4, A1C, HEPAC #### [address] [address] Glucose [Mass/Vol] 78 mg/dL Normal 70-105 [facility] ([place]) Comment on above: Performed By: #### C BC, FES, LIPID, ADIFF, TSH, BMP, MG, ANEU #### [address] [address] #### VIDH, GFR, T4, A1C, HEPAC #### [address] [address] Potassium [Moles/Vol] 5.4 mmol/L High 3.5-5.1 [facility] ([place]) Comment on above: Performed By: #### C BC, FES, LIPID, ADIFF, TSH, BMP, MG, ANEU #### [address] [address] #### VIDH, GFR, T4, A1C, HEPAC #### [address] [address] Sodium [Moles/Vol] 137 mmol/L Normal 136-145 [facility] ([place]) Comment on above: Performed By: #### C BC, FES, LIPID, ADIFF, TSH, BMP, MG, ANEU #### [address] [address] #### VIDH, GFR, T4, A1C, HEPAC #### [address] [address] Urea nitrogen [Mass/Vol] 14 mg/dL Normal 7-18 [facility] ([place]) Comment on above: Performed By: #### C BC, FES, LIPID, ADIFF, TSH, BMP, MG, ANEU #### [place] [address] #### VIDH, GFR, T4, A1C, HEPAC #### [address] [address] CBCon 08-04-2020 Erythrocyte distribution width (RBC) [Ratio] 13.4 % Normal 11.5-14.5 [facility] ([place]) Comment on above: Performed By: #### C BC, FES, LIPID, ADIFF, TSH, BMP, MG, ANEU #### [address] [address] #### VIDH, GFR, T4, A1C, HEPAC #### [address] [address] Hematocrit (Bld) [Volume fraction] 41.3 % Normal 37.0-47.0 [facility] ([place]) Comment on above: Performed By: #### C BC, FES, LIPID, ADIFF, TSH, BMP, MG, ANEU #### [address] [address] #### VIDH, GFR, T4, A1C, HEPAC #### [address] [address] Hgb 14.1 G/dL Normal 12.0-16.0 [facility] ([place]) Comment on above: Performed By: #### C BC, FES, LIPID, ADIFF, TSH, BMP, MG, ANEU #### [place] [address] #### VIDH, GFR, T4, A1C, HEPAC #### [place] [address] MCH (RBC) [Entitic mass] 29.4 pg Normal 27.0-31.2 [facility] ([place]) Comment on above: Performed By: #### C BC, FES, LIPID, ADIFF, TSH, BMP, MG, ANEU #### [place] [address] #### VIDH, GFR, T4, A1C, HEPAC #### [place] [address] MCHC 34.1 G/dL Normal 33.0-37.0 [facility] ([place]) Comment on above: Performed By: #### C BC, FES, LIPID, ADIFF, TSH, BMP, MG, ANEU #### [place] [address] #### VIDH, GFR, T4, A1C, HEPAC #### [place] [address] MCV (RBC) [Entitic vol] 86.2 fL Normal 80.0-94.0 [facility] ([place]) Comment on above: Performed By: #### C BC, FES, LIPID, ADIFF, TSH, BMP, MG, ANEU #### [place] [address] #### VIDH, GFR, T4, A1C, HEPAC #### [place] [address] Platelet 281 10 3/mcL Normal 130-400 [facility] ([place]) Comment on above: Performed By: #### C BC, FES, LIPID, ADIFF, TSH, BMP, MG, ANEU #### [place] [address] #### VIDH, GFR, T4, A1C, HEPAC #### [place] [address] Platelet mean volume (Bld) [Entitic vol] 7.8 fL Normal 7.4-10.4 [facility] ([place]) Comment on above: Performed By: #### C BC, FES, LIPID, ADIFF, TSH, BMP, MG, ANEU #### [place] [address] #### VIDH, GFR, T4, A1C, HEPAC #### [place] [address] RBC 4.79 10 6/mcL Normal 4.20-5.40 [facility] ([place]) Comment on above: Performed By: #### C BC, FES, LIPID, ADIFF, TSH, BMP, MG, ANEU #### [place] [address] #### VIDH, GFR, T4, A1C, HEPAC #### [place] [address] WBC 8.80 10 3/mcL Normal 4.60-10.80 [facility] ([place]) Comment on above: Performed By: #### C BC, FES, LIPID, ADIFF, TSH, BMP, MG, ANEU #### [place] [address] #### VIDH, GFR, T4, A1C, HEPAC #### [address] 08-04-2020 Iron [Mass/Vol] 81 ug/dL Normal 50-170 [facility] ([place]) Comment on above: Performed By: #### C BC, FES, LIPID, ADIFF, TSH, BMP, MG, ANEU #### [place] [address] #### VIDH, GFR, T4, A1C, HEPAC #### [place] [address] Iron Sat 27 % Normal [facility] ([place]) Comment on above: Performed By: #### C BC, FES, LIPID, ADIFF, TSH, BMP, MG, ANEU #### [place] [address] #### VIDH, GFR, T4, A1C, HEPAC #### [address] [address] TIBC 296 mcg/dL Normal 250-450 [facility] ([place]) Comment on above: Performed By: #### C BC, FES, LIPID, ADIFF, TSH, BMP, MG, ANEU #### [address] [address] #### VIDH, GFR, T4, A1C, HEPAC #### [address] [address] LIPIDon 08-04-2020 Cholesterol [Mass/Vol] 219 mg/dL High 0-200 [facility] ([place]) Comment on above: Result Comment: Chol esterol Reference Interval: Less than 200 Desirable 200-239 Borderline high risk 240 and above High risk Performed By: #### C BC, FES, LIPID, ADIFF, TSH, BMP, MG, ANEU #### [address] [address] #### VIDH, GFR, T4, A1C, HEPAC #### [address] [address] Cholesterol in HDL [Mass/Vol] 35 mg/dL Low 40-60 [facility] ([place]) Comment on above: Performed By: #### C BC, FES, LIPID, ADIFF, TSH, BMP, MG, ANEU #### [address] [address] #### VIDH, GFR, T4, A1C, HEPAC #### [address] [address] Cholesterol in LDL [Mass/Vol] 139 mg/dL High 0-130 [facility] ([place]) Comment on above: Performed By: #### C BC, FES, LIPID, ADIFF, TSH, BMP, MG, ANEU #### [address] [address] #### VIDH, GFR, T4, A1C, HEPAC #### [address] [address] Triglyceride [Mass/Vol] 226 mg/dL High 0-150 [facility] ([place]) Comment on above: Result Comment: Trig lyceride Reference Interval: Less than 150 Normal 150-199 Borderline high risk 200-499 High risk 500 or higher Very high risk Performed By: #### C BC, FES, LIPID, ADIFF, TSH, BMP, MG, ANEU #### [address] [address] #### VIDH, GFR, T4, A1C, HEPAC #### [address] [address] MGon 08-04-2020 Magnesium [Mass/Vol] 2.1 mg/dL Normal 1.8-2.4 [facility] ([place]) Comment on above: Performed By: #### C BC, FES, LIPID, ADIFF, TSH, BMP, MG, ANEU #### [address] [address] #### VIDH, GFR, T4, A1C, HEPAC #### [address] [address] TSHon 08-04-2020 TSH Qn 5.07 m[IU]/L High 0.36-3.74 [facility] ([place]) Comment on above: Performed By: #### C BC, FES, LIPID, ADIFF, TSH, BMP, MG, ANEU #### [address] [address] #### VIDH, GFR, T4, A1C, HEPAC #### [address] [address] Anaerobic Cultureon 01-11-20 19 Anaerobic Culture No growth of anaerob es at 5 days. [place] Test Performed by [address] [address] [place] Anaerobic Culture No growth of anaerob es at 5 days. [place] Test Performed by [address] [address] [place] CBC auto differentialon 12-19 Absolute Baso # 0.1 10*3/uL 0 - 0.2 10*3/uL [place] Absolute Neut # 8.1 10*3/uL High 1.8 - 7 10*3/uL [place] Basophils/100 WBC (Bld) 0.8 % 0 - 2 % [place] Eosinophils (Bld) [#/Vol] 0.2 10*3/uL 0 - 0.5 10*3/uL [place] Eosinophils/100 WBC (Bld) 2.3 % 1 - 6 % [place] Erythrocyte distribution width (RBC) [Ratio] 13.2 % 11.5 - 14.5 % [place] Granulocytes/100 WBC (Bld) 78.9 % 40 - 80 % [place] Hematocrit (Bld) [Volume fraction] 22.6 % Low 35 - 47 % [place] Hemoglobin (Bld) [Mass/Vol] 7.6 g/dL Low 11.7 - 16 g/dL [place] Interpretation and review of laboratory results Abnormal [place] Lymphocytes (Bld) [#/Vol] 1.5 10*3/uL 1 - 4.3 10*3/uL [place] Lymphocytes/100 WBC (Bld) 14.1 % Low 20 - 40 % [place] MCH (RBC) [Entitic mass] 28.8 pg 26 - 34 pg [place] MCHC (RBC) [Mass/Vol] 33.5 % 32 - 36 % [place] MCV (RBC) [Entitic vol] 85.9 fL 79 - 98 fL [place] Monocytes (Bld) [#/Vol] 0.4 10*3/uL 0 - 0.8 10*3/uL [place] Monocytes/100 WBC (Bld) 3.9 % 2 - 10 % [place] Platelet mean volume (Bld) [Entitic vol] 6.3 fL Low 7.4 - 10.4 fL [place] Platelets (Bld) [#/Vol] 420 10*3/uL 140 - 440 10*3/uL [place] RBC (Bld) [#/Vol] 2.63 10*6/uL Low 3.8 - 5.2 10*6/uL [place] WBC (Bld) [#/Vol] 10.3 10*3/uL 3.6 - 10.7 10*3/uL [place] Test Performed by [facility], [address], [place], [place] [address] [place] Comprehensive Metabolic Pane corey 01-10-2019 Albumin [Mass/Vol] 2.4 g/dL Low 3.5 - 5 g/dL [place] ALP [Catalytic activity/Vol] 128 U/L High 38 - 126 U/L [place] ALT [Catalytic activity/Vol] 30 U/L 13 - 69 U/L [place] Anion gap [Moles/Vol] 3 mmol/L [place] AST [Catalytic activity/Vol] 19 U/L 15 - 46 U/L [place] Bilirubin Ql (U) 0.2 mg/dL 0.2 - 1.3 mg/dL [place] Calcium [Mass/Vol] 8.0 mg/dL Low 8.4 - 10. 4 mg/dL [place] Chloride [Moles/Vol] 108 mmol/L High 98 - 10 7 mmol/L [place] CO2 [Moles/Vol] 26 mmol/L 22 - 30 mmol/L [place] Creatinine [Mass/Vol] 1.22 mg/dL 0.52 - 1.25 mg/dL [place] EGFR IF NonAfrican [place] 47.3 mL/min >60 [place] Comment on above: Source- MDRD equatio n with creatinine calibration to IDMS(NKDEP) eGFR not recommended for drug dose adjustment GFR/1.73 sq M predicted among blacks MDRD (S/P/Bld) [Vol rate/Area] 57.3 mL/min/{1.73_m2} >60 [place] Glucose [Mass/Vol] 90 mg/dL 70 - 100 mg/dL [place] Interpretation and review of laboratory results Abnormal [place] Potassium [Moles/Vol] 3.8 mmol/L 3.5 - 5.1 mmol/L [place] Protein [Mass/Vol] 5.1 g/dL Low 6.3 - 8.2 g/dL [place] Sodium [Moles/Vol] 137 mmol/L 135 - 145 mmol/L [place] Urea nitrogen [Mass/Vol] 12 mg/dL 7 - 20 mg/dL [place] Test Performed by [facility], [address], [place], [place] [address] [place] Hemoglobin and Hematocrit, B loodon 01-10-2019 Hematocrit (Bld) [Volume fraction] 26.5 % Low 35 - 47 % [place] Hemoglobin (Bld) [Mass/Vol] 8.5 g/dL Low 11.7 - 16 g/dL [place] Interpretation and review of laboratory results Abnormal [place] Test Performed by [facility], [address], [place], [place] [address] [place] Otheron 01-10-2019 Blood Culture, Routine No growth at 5 days. [place] Test Performed by [facility], [address] [place] [id number] Specimen Source Comment:Blood [place] CBC auto differentialon 12-19 Absolute Baso # 0.1 10*3/uL 0 - 0.2 10*3/uL [place] Absolute Neut # 9.7 10*3/uL High 1.8 - 7 10*3/uL [place] Basophils/100 WBC (Bld) 0.7 % 0 - 2 % [place] Eosinophils (Bld) [#/Vol] 0.3 10*3/uL 0 - 0.5 10*3/uL [place] Eosinophils/100 WBC (Bld) 2.1 % 1 - 6 % [place] Erythrocyte distribution width (RBC) [Ratio] 13.3 % 11.5 - 14.5 % [place] Granulocytes/100 WBC (Bld) 78.2 % 40 - 80 % [place] Hematocrit (Bld) [Volume fraction] 24.6 % Low 35 - 47 % [place] Hemoglobin (Bld) [Mass/Vol] 8.1 g/dL Low 11.7 - 16 g/dL [place] Interpretation and review of laboratory results Abnormal [place] Lymphocytes (Bld) [#/Vol] 1.8 10*3/uL 1 - 4.3 10*3/uL [place] Lymphocytes/100 WBC (Bld) 14.7 % Low 20 - 40 % [place] MCH (RBC) [Entitic mass] 28.2 pg 26 - 34 pg [place] MCHC (RBC) [Mass/Vol] 32.8 % 32 - 36 % [place] MCV (RBC) [Entitic vol] 86.2 fL 79 - 98 fL [place] Monocytes (Bld) [#/Vol] 0.5 10*3/uL 0 - 0.8 10*3/uL [place] Monocytes/100 WBC (Bld) 4.3 % 2 - 10 % [place] Platelet mean volume (Bld) [Entitic vol] 6.6 fL Low 7.4 - 10.4 fL [place] Platelets (Bld) [#/Vol] 452 10*3/uL High 140 - 440 10*3/uL [place] RBC (Bld) [#/Vol] 2.86 10*6/uL Low 3.8 - 5.2 10*6/uL [place] WBC (Bld) [#/Vol] 12.5 10*3/uL High 3.6 - 10.7 10*3/uL [place] Test Performed by [facility], [address], [place], [place] [address] [place] Comprehensive Metabolic Pane corey 01-09-2019 Albumin [Mass/Vol] 2.5 g/dL Low 3.5 - 5 g/dL [place] ALP [Catalytic activity/Vol] 116 U/L 38 - 126 U/L [place] ALT [Catalytic activity/Vol] 26 U/L 13 - 69 U/L [place] Anion gap [Moles/Vol] 3 mmol/L [place] AST [Catalytic activity/Vol] 29 U/L 15 - 46 U/L [place] Bilirubin Ql (U) 0.3 mg/dL 0.2 - 1.3 mg/dL [place] Calcium [Mass/Vol] 8.0 mg/dL Low 8.4 - 10. 4 mg/dL [place] Chloride [Moles/Vol] 104 mmol/L 98 - 10 7 mmol/L [place] CO2 [Moles/Vol] 28 mmol/L 22 - 30 mmol/L [place] Creatinine [Mass/Vol] 1.29 mg/dL High 0.52 - 1.25 mg/dL [place] EGFR IF NonAfrican [place] 44.3 mL/min >60 [place] Comment on above: Source- MDRD equatio n with creatinine calibration to IDMS(NKDEP) eGFR not recommended for drug dose adjustment GFR/1.73 sq M predicted among blacks MDRD (S/P/Bld) [Vol rate/Area] 53.7 mL/min/{1.73_m2} >60 [place] Glucose [Mass/Vol] 93 mg/dL 70 - 100 mg/dL [place] Interpretation and review of laboratory results Abnormal [place] Potassium [Moles/Vol] 3.8 mmol/L 3.5 - 5.1 mmol/L [place] Protein [Mass/Vol] 5.3 g/dL Low 6.3 - 8.2 g/dL [place] Sodium [Moles/Vol] 135 mmol/L 135 - 145 mmol/L [place] Urea nitrogen [Mass/Vol] 17 mg/dL 7 - 20 mg/dL [place] Test Performed by [facility], [address], [place], [place] [address] [place] CBC auto differentialon 11- Absolute Baso # 0.1 10*3/uL 0 - 0.2 10*3/uL [place] Absolute Neut # 14.1 10*3/uL High 1.8 - 7 10*3/uL [place] Basophils/100 WBC (Bld) 0.6 % 0 - 2 % [place] Eosinophils (Bld) [#/Vol] 0.1 10*3/uL 0 - 0.5 10*3/uL [place] Eosinophils/100 WBC (Bld) 0.3 % Low 1 - 6 % [place] Erythrocyte distribution width (RBC) [Ratio] 13.5 % 11.5 - 14.5 % [place] Granulocytes/100 WBC (Bld) 82.9 % High 40 - 80 % [place] Hematocrit (Bld) [Volume fraction] 24.7 % Low 35 - 47 % [place] Hemoglobin (Bld) [Mass/Vol] 8.3 g/dL Low 11.7 - 16 g/dL [place] Interpretation and review of laboratory results Abnormal [place] Lymphocytes (Bld) [#/Vol] 2.0 10*3/uL 1 - 4.3 10*3/uL [place] Lymphocytes/100 WBC (Bld) 11.6 % Low 20 - 40 % [place] MCH (RBC) [Entitic mass] 28.3 pg 26 - 34 pg [place] MCHC (RBC) [Mass/Vol] 33.7 % 32 - 36 % [place] MCV (RBC) [Entitic vol] 83.8 fL 79 - 98 fL [place] Monocytes (Bld) [#/Vol] 0.8 10*3/uL 0 - 0.8 10*3/uL [place] Monocytes/100 WBC (Bld) 4.6 % 2 - 10 % [place] Platelet mean volume (Bld) [Entitic vol] 6.7 fL Low 7.4 - 10.4 fL [place] Platelets (Bld) [#/Vol] 525 10*3/uL High 140 - 440 10*3/uL [place] RBC (Bld) [#/Vol] 2.95 10*6/uL Low 3.8 - 5.2 10*6/uL [place] WBC (Bld) [#/Vol] 17.1 10*3/uL High 3.6 - 10.7 10*3/uL [place] Test Performed by [facility], [address], [place], [place] [address] [place] Comprehensive Metabolic Pane corey 01-08-2019 Albumin [Mass/Vol] 2.6 g/dL Low 3.5 - 5 g/dL [place] ALP [Catalytic activity/Vol] 153 U/L High 38 - 126 U/L [place] ALT [Catalytic activity/Vol] 26 U/L 13 - 69 U/L [place] Anion gap [Moles/Vol] 6 mmol/L [place] AST [Catalytic activity/Vol] 23 U/L 15 - 46 U/L [place] Bilirubin Ql (U) 0.2 mg/dL 0.2 - 1.3 mg/dL [place] Calcium [Mass/Vol] 8.2 mg/dL Low 8.4 - 10. 4 mg/dL [place] Chloride [Moles/Vol] 103 mmol/L 98 - 10 7 mmol/L [place] CO2 [Moles/Vol] 27 mmol/L 22 - 30 mmol/L [place] Creatinine [Mass/Vol] 0.97 mg/dL 0.52 - 1.25 mg/dL [place] EGFR IF NonAfrican [place] >60.0 >60 mL/min [place] Comment on above: Source- MDRD equatio n with creatinine calibration to IDMS(NKDEP) eGFR not recommended for drug dose adjustment GFR/1.73 sq M predicted among blacks MDRD (S/P/Bld) [Vol rate/Area] mL/min/{1.73_m2} >60 mL/min [place] Glucose [Mass/Vol] 98 mg/dL 70 - 100 mg/dL [place] Interpretation and review of laboratory results Abnormal [place] Potassium [Moles/Vol] 4.5 mmol/L 3.5 - 5.1 mmol/L [place] Protein [Mass/Vol] 5.3 g/dL Low 6.3 - 8.2 g/dL [place] Sodium [Moles/Vol] 136 mmol/L 135 - 145 mmol/L [place] Urea nitrogen [Mass/Vol] 16 mg/dL 7 - 20 mg/dL [place] Test Performed by [facility], [address], [place], [place] [address] [place] Culture, Aerobic Bacteria wi th Gram Staion 01-08-2019 Aerobic Culture Staphylococcus aureus Abnormal [place] INR Coag (Bld) [Relative time] Moderate Positive for PBP2a (MRSA). Methicillin-resistant Staphylococcus aureus(MRSA) [place] INR Coag (Bld) [Relative time] Few polymorphonuclear cells/lpf. Few gram positive cocci. [place] Interpretation and review of laboratory results Abnormal [place] Test Performed by [facility], [address] [place] [address] [place] Tissue Cultureon 01-08-2019 INR Coag (Bld) [Relative time] Many Methicillin-resistant Staphylococcus aureus(MRSA) For identification and/or sensitivity, refer to culture collected on: 01/05/2019 at 1630 ([id number]). [place] INR Coag (Bld) [Relative time] Many polymorphonuclear cells/lpf. Moderate gram positive cocci. [place] Interpretation and review of laboratory results Abnormal [place] Tissue Cult/Smear, Aer Staphylococcus aureus Abnormal [place] Test Performed by [facility], [address] [place] [address] [place] C-Reactive Proteinon 019 CRP [Mass/Vol] 88.2 mg/L High 0 - 6 mg/L [place] Comment on above: . Interpretation and review of laboratory results Abnormal [place] Test Performed by [facility], [address], [place], [place] [address] [place] CBC auto differentialon 12-19 Absolute Baso # 0.1 10*3/uL 0 - 0.2 10*3/uL [place] Absolute Neut # 9.2 10*3/uL High 1.8 - 7 10*3/uL [place] Basophils/100 WBC (Bld) 1.2 % 0 - 2 % [place] Eosinophils (Bld) [#/Vol] 0.2 10*3/uL 0 - 0.5 10*3/uL [place] Eosinophils/100 WBC (Bld) 2.0 % 1 - 6 % [place] Erythrocyte distribution width (RBC) [Ratio] 13.2 % 11.5 - 14.5 % [place] Granulocytes/100 WBC (Bld) 74.5 % 40 - 80 % [place] Hematocrit (Bld) [Volume fraction] 23.4 % Low 35 - 47 % [place] Hemoglobin (Bld) [Mass/Vol] 8.0 g/dL Low 11.7 - 16 g/dL [place] Interpretation and review of laboratory results Abnormal [place] Lymphocytes (Bld) [#/Vol] 2.1 10*3/uL 1 - 4.3 10*3/uL [place] Lymphocytes/100 WBC (Bld) 17.0 % Low 20 - 40 % [place] MCH (RBC) [Entitic mass] 28.5 pg 26 - 34 pg [place] MCHC (RBC) [Mass/Vol] 34.1 % 32 - 36 % [place] MCV (RBC) [Entitic vol] 83.6 fL 79 - 98 fL [place] Monocytes (Bld) [#/Vol] 0.7 10*3/uL 0 - 0.8 10*3/uL [place] Monocytes/100 WBC (Bld) 5.3 % 2 - 10 % [place] Platelet mean volume (Bld) [Entitic vol] 7.1 fL Low 7.4 - 10.4 fL [place] Platelets (Bld) [#/Vol] 360 10*3/uL 140 - 440 10*3/uL [place] RBC (Bld) [#/Vol] 2.80 10*6/uL Low 3.8 - 5.2 10*6/uL [place] WBC (Bld) [#/Vol] 12.3 10*3/uL High 3.6 - 10.7 10*3/uL [place] Test Performed by [facility], [address], [place], [place] [address] [place] Comprehensive Metabolic Pane corey 01-07-2019 Albumin [Mass/Vol] 2.4 g/dL Low 3.5 - 5 g/dL [place] ALP [Catalytic activity/Vol] 141 U/L High 38 - 126 U/L [place] ALT [Catalytic activity/Vol] 29 U/L 13 - 69 U/L [place] Anion gap [Moles/Vol] 2 mmol/L [place] AST [Catalytic activity/Vol] 15 U/L 15 - 46 U/L [place] Bilirubin Ql (U) 0.2 mg/dL 0.2 - 1.3 mg/dL [place] Calcium [Mass/Vol] 8.1 mg/dL Low 8.4 - 10. 4 mg/dL [place] Chloride [Moles/Vol] 102 mmol/L 98 - 10 7 mmol/L [place] CO2 [Moles/Vol] 29 mmol/L 22 - 30 mmol/L [place] Creatinine [Mass/Vol] 0.65 mg/dL 0.52 - 1.25 mg/dL [place] EGFR IF NonAfrican [place] >60.0 >60 mL/min [place] Comment on above: Source- MDRD equatio n with creatinine calibration to IDMS(NKDEP) eGFR not recommended for drug dose adjustment GFR/1.73 sq M predicted among blacks MDRD (S/P/Bld) [Vol rate/Area] mL/min/{1.73_m2} >60 mL/min [place] Glucose [Mass/Vol] 77 mg/dL 70 - 100 mg/dL [place] Interpretation and review of laboratory results Abnormal [place] Potassium [Moles/Vol] 4.3 mmol/L 3.5 - 5.1 mmol/L [place] Protein [Mass/Vol] 4.9 g/dL Low 6.3 - 8.2 g/dL [place] Sodium [Moles/Vol] 134 mmol/L Low 135 - 145 mmol/L [place] Urea nitrogen [Mass/Vol] 17 mg/dL 7 - 20 mg/dL [place] Test Performed by [facility], [address], [place], [place] [address] [place] Hepatitis Panel, Acuteon HAV IgM IA Qn (S) NOT DETECTED Not-Detect ed NA [place] Hep B Core Ab, IgM NOT DETECTED Not-Detec [place] NA [place] Hepatitis B Surface Ag NOT DETECTED Not-Detected NA [place] Hepatitis C Ab DETECTED Abnormal Not-Detected NA [place] Comment on above: Patients with DETECT ED Hepatitis C Ab results should have a new specimen submitted for supplemental testing with a Hepatitis C Quantitative RNA assay (viral load), if clinically indicated. Interpretation and review of laboratory results Abnormal [place] Test Performed by [facility], [address] [place] [address] [place], [place] Manual Differentialon 2018 Absolute Baso # 0.1 10*3/uL 0 - 0.2 10*3/uL [place] Absolute Eos # 0.2 10*3/uL 0 - 0.5 10*3/uL [place] Absolute Lymph # 0.9 10*3/uL Low 1.1 - 4.5 10*3/uL [place] Absolute [place] # 0.9 10*3/uL 0.2 - 1.1 10*3/uL [place] Absolute Neut # 9.7 10*3/uL High 2.2 - 8.2 10*3/uL [place] Bands 3 % 0 - 3 % [facility] [place], [place] Basophils 1 % 0 - 2 % [place] Clumped Platelets see below [place], [place] Comment on above: Platelet clumping no rosanna; this may be corrected by using Na Citrate. Eosinophils 2 % 1 - 6 % [place] Interpretation and review of laboratory results Abnormal [place] Lymphocytes 7 % Low 20 - 40 % [place] Metamyelocytes 4 % Abnormal <1 [place] Monocytes 7 % 2 - 10 % [place] RBC morphology finding Nom (Bld) Normal [place] Seg Neutrophils 76 % 40 - 80 % [place] TOTAL CELLS COUNTED 100 [place] Test Performed by [facility], [address], [place], [place] [address] [place] Procalcitoninon 01-07-2019 Interpretation and review of laboratory results Abnormal [place] Procalcitonin 0.1 ng/mL Abnormal <0.10 [place] Sodium [Moles/Vol] See Below [place] Comment on above: PCT <0.50 = Low risk of severe sepsis and/or septic shock. PCT >2.00 = High risk of severe sepsis and/or septic shock. Test Performed by [facility], [address] [place] [id number] [place], [place] Vancomycin, [place] 019 Interpretation and review of laboratory results Abnormal [place] Vancomycin Tr 9.2 ug/mL Low 15 - 20 ug/mL [place], [place] Comment on above: . Test Performed by [facility], [address], [place], [place] [address] [place], [place] Basic Metabolic Panel w/ Ref ruslan to MGon 01-06-2019 Anion gap [Moles/Vol] 4 mmol/L [place] Calcium [Mass/Vol] 8.4 mg/dL 8.4 - 10. 4 mg/dL [place] Chloride [Moles/Vol] 102 mmol/L 98 - 10 7 mmol/L [place] CO2 [Moles/Vol] 28 mmol/L 22 - 30 mmol/L [place] Creatinine [Mass/Vol] 0.55 mg/dL 0.52 - 1.25 mg/dL [place] EGFR IF NonAfrican [place] >60.0 >60 mL/min [place] Comment on above: Source- MDRD equatio n with creatinine calibration to IDMS(NKDEP) eGFR not recommended for drug dose adjustment GFR/1.73 sq M predicted among blacks MDRD (S/P/Bld) [Vol rate/Area] mL/min/{1.73_m2} >60 mL/min [place] Glucose [Mass/Vol] 113 mg/dL High 70 - 100 mg/dL [place] Interpretation and review of laboratory results Abnormal [place] Potassium [Moles/Vol] 4.8 mmol/L 3.5 - 5.1 mmol/L [place] Sodium [Moles/Vol] 134 mmol/L Low 135 - 145 mmol/L [place] Urea nitrogen [Mass/Vol] 14 mg/dL 7 - 20 mg/dL [place] Test Performed by [facility], [address], [place], [place] [address] [place] CBC auto differentialon 11-2 Absolute Baso # 0.0 10*3/uL 0 - 0.2 10*3/uL [place] Absolute Neut # 9.0 10*3/uL High 1.8 - 7 10*3/uL [place] Basophils/100 WBC (Bld) 0.3 % 0 - 2 % [place] Eosinophils (Bld) [#/Vol] 0.0 10*3/uL 0 - 0.5 10*3/uL [place] Eosinophils/100 WBC (Bld) 0.1 % Low 1 - 6 % [place] Erythrocyte distribution width (RBC) [Ratio] 12.9 % 11.5 - 14.5 % [place] Granulocytes/100 WBC (Bld) 85.6 % High 40 - 80 % [place] Hematocrit (Bld) [Volume fraction] 34.7 % Low 35 - 47 % [place] Hemoglobin (Bld) [Mass/Vol] 11.8 g/dL 11.7 - 16 g/dL [place] Interpretation and review of laboratory results Abnormal [place] Lymphocytes (Bld) [#/Vol] 0.8 10*3/uL Low 1 - 4.3 10*3/uL [place] Lymphocytes/100 WBC (Bld) 8.0 % Low 20 - 40 % [place] MCH (RBC) [Entitic mass] 28.6 pg 26 - 34 pg [place] MCHC (RBC) [Mass/Vol] 33.9 % 32 - 36 % [place] MCV (RBC) [Entitic vol] 84.3 fL 79 - 98 fL [place] Monocytes (Bld) [#/Vol] 0.6 10*3/uL 0 - 0.8 10*3/uL [place] Monocytes/100 WBC (Bld) 6.0 % 2 - 10 % [place] Platelet mean volume (Bld) [Entitic vol] 7.3 fL Low 7.4 - 10.4 fL [place] Platelets (Bld) [#/Vol] 254 10*3/uL 140 - 440 10*3/uL [place] RBC (Bld) [#/Vol] 4.12 10*6/uL 3.8 - 5.2 10*6/uL [place] WBC (Bld) [#/Vol] 10.5 10*3/uL 3.6 - 10.7 10*3/uL [place] Test Performed by [facility], [address], [place], [place] [address] [place], [place] Add On Lab Teston 01-05-2019 Sodium [Moles/Vol] Accepted [place], [place] Comment on above: Specimen available & acceptable for analysis. Test Performed by [facility], [address], [place], [place] [address] [place] C-Reactive Proteinon 019 CRP [Mass/Vol] 255.1 mg/L High 0 - 6 mg/L [place] Comment on above: . Interpretation and review of laboratory results Abnormal [place] Test Performed by [facility], [address], [place], [place] [address] [place] CT UPPER EXTREMITY RIGHT W C Nicki 01-05-2019 [place], [facility] Incoming Radiology Results From [facility] - 01/05/2019 3:14 PM EST Patient Name: DEIDRA DE LA CRUZ ---CT--- Exam Date/Time 01/05/2019 13:32:[address] Up Ext w/ Contrast Right Ordering Physician MALI COOPER DANIEL M Accession Number [id number] CPT4 Codes 88843 (), Q9967 (CT ISOVUE 370MG/[id number] ) Reason For Exam Extensive cellulitis and swelling, erythema and induration to axilla and right lateral chest wall Report CLINICAL INFORMATION: Extensive right upper extremity pain, redness and swelling. Cellulitis. Induration in the left axilla. CT right upper extremity with intravenous contrast: Contrast: Isovue-370, [address] images are obtained from the base of neck through the wrist following intravenous contrast with axial, coronal and sagittal 2-D reconstructions. The images are degraded by artifact most likely from patient motion. There is irregular increased density in the right axillary without discrete focal mass or fluid collection consistent with nonspecific edema and/or inflammation. There is additional irregular streaky increased density in the posterior subcutaneous fat at the level of the proximal humeral diaphysis at the same differential considerations. There is a focal nonencapsulated appearing hypodense collection in the subcutaneous fat of the medial aspect of the proximal arm measuring approximately 7.2 x 3.1 cm (oblique AP, oblique transverse) possibly extending as much as 8.2 cm caudally with streaky irregular increased density in the adjacent fat which may be focally confluent edema or inflammation or perhaps an inflammatory mass (phlegmon) or early abscess. There are several small gas densities in the deep subcutaneous fat anterior to this collection which could indicate gas-forming infection unless there is been an attempted aspiration or other intervention. There is thickening of the overlying skin extending distally. There are streaky irregular soft tissue densities throughout the subcutaneous fat of the remainder of the arm extending to the elbow and into the forearm medial skin thickening greatest at the level of the distal arm. This is also nonspecific and could be related to diffuse edema and/or inflammation. There appears to be fluid in the deep fascial plane between the subcutaneous fat and the ventral musculature (the patient is scanned in a supinated position). The sterility of this fluid is indeterminate on CT and could be reactive or septic fluid. No other discrete encapsulated or not encapsulated hypodense or fluid collection is seen in the remainder of the upper extremity. There is no evidence of fracture, bone erosion or periosteal reaction. IMPRESSION: 1. Focal nonencapsulated appearing hypodense collection in the subcutaneous fat of the medial aspect of the proximal arm as described with edema or inflammation in the adjacent fat which may be focally confluent edema or inflammation, perhaps an inflammatory mass/phlegmon or early abscess. Small gas densities in the subcutaneous fat anterior to this collection could be related to gas- forming infection unless there has been recent intervention. 2. Confluent increased density in the left axillary fat without discrete focal collection which could be confluence edema and/or inflammation. 3. Medial skin thickening of the arm and edematous and/or inflammatory changes in the subcutaneous fat extending into the distal forearm with suggestion of fluid in the fascial plane into the ventral musculature in the subcutaneous fat. The sterility of the fluid is indeterminate on CT and could be reactive or septic. 4. No other discrete focal mass or collection is identified. Report Dictated on --- Final --- Dictating Physician: MD VIDAL HARLAN Signed Date and Time: 01/05/2019 3:13 pm Signed by: MD VIDAL HARLAN Transcribed Date and Time: 01/05/2019 3:14 [place], [place] Patient Name: DEIDRA GOLDSTEIN ---CT--- Exam Date/Time 01/05/2019 13:32:[address] Up Ext w/ Contrast Right Ordering Physician MALI COOPER DANIEL M Accession Number [id number] CPT4 Codes 33156 (), Q9967 (CT ISOVUE 370MG/[id number]&1 ) Reason For Exam Extensive cellulitis and swelling, erythema and induration to axilla and right lateral chest wall Report CLINICAL INFORMATION: Extensive right upper extremity pain, redness and swelling. Cellulitis. Induration in the left axilla. CT right upper extremity with intravenous contrast: Contrast: Isovue-370, [address] images are obtained from the base of neck through the wrist following intravenous contrast with axial, coronal and sagittal 2-D reconstructions. The images are degraded by artifact most likely from patient motion. There is irregular increased density in the right axillary without discrete focal mass or fluid collection consistent with nonspecific edema and/or inflammation. There is additional irregular streaky increased density in the posterior subcutaneous fat at the level of the proximal humeral diaphysis at the same differential considerations. There is a focal nonencapsulated appearing hypodense collection in the subcutaneous fat of the medial aspect of the proximal arm measuring approximately 7.2 x 3.1 cm (oblique AP, oblique transverse) possibly extending as much as 8.2 cm caudally with streaky irregular increased density in the adjacent fat which may be focally confluent edema or inflammation or perhaps an inflammatory mass (phlegmon) or early abscess. There are several small gas densities in the deep subcutaneous fat anterior to this collection which could indicate gas-forming infection unless there is been an attempted aspiration or other intervention. There is thickening of the overlying skin extending distally. There are streaky irregular soft tissue densities throughout the subcutaneous fat of the remainder of the arm extending to the elbow and into the forearm medial skin thickening greatest at the level of the distal arm. This is also nonspecific and could be related to diffuse edema and/or inflammation. There appears to be fluid in the deep fascial plane between the subcutaneous fat and the ventral musculature (the patient is scanned in a supinated position). The sterility of this fluid is indeterminate on CT and could be reactive or septic fluid. No other discrete encapsulated or not encapsulated hypodense or fluid collection is seen in the remainder of the upper extremity. There is no evidence of fracture, bone erosion or periosteal reaction. IMPRESSION: 1. Focal nonencapsulated appearing hypodense collection in the subcutaneous fat of the medial aspect of the proximal arm as described with edema or inflammation in the adjacent fat which may be focally confluent edema or inflammation, perhaps an inflammatory mass/phlegmon or early abscess. Small gas densities in the subcutaneous fat anterior to this collection could be related to gas- forming infection unless there has been recent intervention. 2. Confluent increased density in the left axillary fat without discrete focal collection which could be confluence edema and/or inflammation. 3. Medial skin thickening of the arm and edematous and/or inflammatory changes in the subcutaneous fat extending into the distal forearm with suggestion of fluid in the fascial plane into the ventral musculature in the subcutaneous fat. The sterility of the fluid is indeterminate on CT and could be reactive or septic. 4. No other discrete focal mass or collection is identified. Report Dictated on --- Final --- Dictating Physician: MD VIDAL HARLAN Signed Date and Time: 01/05/2019 3:13 pm Signed by: MD VIDAL HARLAN Transcribed Date and Time: 01/05/2019 3:14 [place], [place] Comprehensive Metabolic Pane corey 01-05-2019 Albumin [Mass/Vol] 3.2 g/dL Low 3.5 - 5 g/dL [place] ALP [Catalytic activity/Vol] 290 U/L High 38 - 126 U/L [place] ALT [Catalytic activity/Vol] 33 U/L 13 - 69 U/L [place] Anion gap [Moles/Vol] 8 mmol/L [place] AST [Catalytic activity/Vol] 23 U/L 15 - 46 U/L [place] Bilirubin Ql (U) 0.7 mg/dL 0.2 - 1.3 mg/dL [place] Calcium [Mass/Vol] 8.7 mg/dL 8.4 - 10. 4 mg/dL [place] Chloride [Moles/Vol] 96 mmol/L Low 98 - 10 7 mmol/L [place] CO2 [Moles/Vol] 28 mmol/L 22 - 30 mmol/L [place] Creatinine [Mass/Vol] 0.57 mg/dL 0.52 - 1.25 mg/dL [place] EGFR IF NonAfrican [place] >60.0 >60 mL/min [place] Comment on above: Source- MDRD equatio n with creatinine calibration to IDMS(NKDEP) eGFR not recommended for drug dose adjustment GFR/1.73 sq M predicted among blacks MDRD (S/P/Bld) [Vol rate/Area] mL/min/{1.73_m2} >60 mL/min [place] Glucose [Mass/Vol] 105 mg/dL High 70 - 100 mg/dL [place] Interpretation and review of laboratory results Abnormal [place] Potassium [Moles/Vol] 4.0 mmol/L 3.5 - 5.1 mmol/L [place] Protein [Mass/Vol] 6.4 g/dL 6.3 - 8.2 g/dL [place] Sodium [Moles/Vol] 132 mmol/L Low 135 - 145 mmol/L [place] Urea nitrogen [Mass/Vol] 10 mg/dL 7 - 20 mg/dL [place] Test Performed by [facility], [address], [place], [place] [id number] [place] [address] HCG Qualitative, Serumon hCG Qual Negative m[IU]/mL [place], [place] Comment on above: REF RANGE: Negative .... < 3 Questionable Rpt 48-72 Hr Positive ..... > 10 Test Performed by [facility], [address] [place], [place] [id number] [place] [address] Hemogram (CBC) w/Auto Diffon 01-05-2019 Absolute Baso # 0.1 10*3/uL 0 - 0.2 10*3/uL [place] Absolute Neut # 12.5 10*3/uL High 1.8 - 7 10*3/uL [place] Basophils/100 WBC (Bld) 0.4 % 0 - 2 % [place] Eosinophils (Bld) [#/Vol] 0.1 10*3/uL 0 - 0.5 10*3/uL [place] Eosinophils/100 WBC (Bld) 0.6 % Low 1 - 6 % [place] Erythrocyte distribution width (RBC) [Ratio] 13.2 % 11.5 - 14.5 % [place] Granulocytes/100 WBC (Bld) 84.1 % High 40 - 80 % [place] Hematocrit (Bld) [Volume fraction] 34.7 % Low 35 - 47 % [place] Hemoglobin (Bld) [Mass/Vol] 11.8 g/dL 11.7 - 16 g/dL [place] Interpretation and review of laboratory results Abnormal [place] Lymphocytes (Bld) [#/Vol] 1.3 10*3/uL 1 - 4.3 10*3/uL [place] Lymphocytes/100 WBC (Bld) 8.7 % Low 20 - 40 % [place] MCH (RBC) [Entitic mass] 28.2 pg 26 - 34 pg [place] MCHC (RBC) [Mass/Vol] 34.0 % 32 - 36 % [place] MCV (RBC) [Entitic vol] 83.1 fL 79 - 98 fL [place] Monocytes (Bld) [#/Vol] 0.9 10*3/uL High 0 - 0.8 10*3/uL [place], [place] Monocytes/100 WBC (Bld) 6.2 % 2 - 10 % [place] Platelet mean volume (Bld) [Entitic vol] 7.3 fL Low 7.4 - 10.4 fL [place] Platelets (Bld) [#/Vol] 325 10*3/uL 140 - 440 10*3/uL [place] RBC (Bld) [#/Vol] 4.17 10*6/uL 3.8 - 5.2 10*6/uL [place] WBC (Bld) [#/Vol] 14.8 10*3/uL High 3.6 - 10.7 10*3/uL [place] Test Performed by [facility], [address], [place], [place] [id number] [place] [address] Lactic Acid, Plasmaon 2018 Lactate [Moles/Vol] 1.2 mmol/L 0.7 - 2 mmol/L [place] Test Performed by [facility], [address], [place], [place] [address] [facility], [place] Vital Signs Date Time Vital Sign Value Performing Clinician Facility 05-12-2024 15:20-0400 Body temperature 97.9 [degF] Dinah Noe MD Work Phone: [facility] 05-12-2024 15:20-0400 Diastolic blood pressure 72 mm[Hg] Dinah Noe MD Work Phone: [facility] 05-12-2024 15:20-0400 Heart rate 62 /min Dinah Noe MD Work Phone: [facility] 05-12-2024 15:20-0400 Respiratory rate 17 /min Dinah Noe MD Work Phone: [facility] 05-12-2024 15:20-0400 SaO2% (BldA) [Mass fraction] 96 % Dinah Noe MD Work Phone: [facility] 05-12-2024 15:20-0400 Systolic blood pressure 120 mm[Hg] Dinah Noe MD Work Phone: [facility] 05-05-2024 12:53-0400 Body height 167.6 cm Dinah Noe MD Work Phone: [facility] 05-05-2024 12:53-0400 Body mass index (BMI) [Ratio] 36.79 kg/m2 Dinah Noe MD Work Phone: [facility] 05-05-2024 12:53-0400 Body weight 103.4 kg Dinah Noe MD Work Phone: [facility] 04-25-2024 18:00-0400 Body temperature 98.1 [degF] Dr. Francisco Elmore MD Work Phone: [facility] 04-25-2024 18:00-0400 Diastolic blood pressure 85 mm[Hg] Dr. Francisco Elmore MD Work Phone: [facility] 04-25-2024 18:00-0400 Heart rate 69 /min Dr. Francisco Elmore MD Work Phone: [facility] 04-25-2024 18:00-0400 Respiratory rate 17 /min Dr. Francisco Elmore MD Work Phone: [facility] 04-25-2024 18:00-0400 SaO2% (BldA) [Mass fraction] 98 % Dr. Francisco Elmore MD Work Phone: [facility] 04-25-2024 18:00-0400 Systolic blood pressure 152 mm[Hg] Dr. Francisco Elmore MD Work Phone: [facility] 04-25-2024 15:03-0400 Body height 167.[address] Francisco Elmore MD Work Phone: [facility] 04-25-2024 15:03-0400 Body mass index (BMI) [Ratio] 34.8 kg/m2 Dr. Francisco Elmore MD Work Phone: [facility] 04-25-2024 15:03-0400 Body weight 97.[address] Francisco Elmore MD Work Phone: [facility] 04-01-2024 11:27-0500 Body temperature 97.3 [degF] Filippo Mark MD Work Phone: [facility] 04-01-2024 11:27-0500 Diastolic blood pressure 83 mm[Hg] Filippo Mark MD Work Phone: [facility] 04-01-2024 11:27-0500 Heart rate 82 /min Filippo Mark MD Work Phone: [facility] 04-01-2024 11:27-0500 Respiratory rate 18 /min Filippo Mark MD Work Phone: [facility] 04-01-2024 11:27-0500 SaO2% (BldA) [Mass fraction] 97 % Filippo Mark MD Work Phone: [phone] 04-01-2024 11:27-0500 Systolic blood pressure 134 mm[Hg] Filippo Mark MD Work Phone: [facility] 03-25-2024 23:59-0500 Body height 165.1 cm Filippo Mark MD Work Phone: [facility] 03-25-2024 23:59-0500 Body mass index (BMI) [Ratio] 30.79 kg/m2 Filippo Mark MD Work Phone: [facility] 03-25-2024 23:59-0500 Body weight 83.92 kg Filippo Mark MD Work Phone: [facility] 03-25-2024 20:59-0500 Body temperature 37 Filippo Mark MD Work Phone: [facility] Comment on above: NOTE: Patient Results are Not Corrected for Temperature 03-25-2024 20:59-0500 SaO2% (BldA) [Mass fraction] 99 % Filippo Mark MD Work Phone: [facility] 03-25-2024 20:57-0500 Body temperature 37.0 degrees Celsius [facility] Comment on above: Result Comment: NOTE: Patient Results ar e Not Corrected for Temperature Performed By: #### [id number] ####JANETH Galo ([id number])[facility] ([facility])[address] [place] [address] 03-25-2024 20:57-0500 SaO2% (BldA) [Mass fraction] 99 % [facility] Comment on above: Performed By: #### [id number] ####JANETH Galo ([id number])[facility] ([facility])[address] [place] [address] 03-25-2024 16:36-0500 Body temperature 37 Filippo Mark MD Work Phone: [facility] 03-25-2024 16:36-0500 SaO2% (BldA) [Mass fraction] 98 % Filippo Mark MD Work Phone: [facility] 03-25-2024 15:55-0500 Body temperature 37.0 degrees Celsius [facility] Comment on above: Performed By: #### [id number] ####JANETH Galo ([id number])[facility] ([facility])[address] [place] [address] 03-25-2024 15:55-0500 SaO2% (BldA) [Mass fraction] 98 % [facility] Comment on above: Performed By: #### [id number] ####JANETH Galo ([id number])[facility] ([facility])[address] [place] [address] 03-25-2024 14:28-0500 Body temperature 37 Filipop Mark MD Work Phone: [facility] 03-25-2024 14:28-0500 SaO2% (BldA) [Mass fraction] 98 % Filippo Mark MD Work Phone: [facility] 03-25-2024 14:08-0500 Body temperature 37.0 degrees Celsius [facility] Comment on above: Performed By: #### [id number] ####JANETH Galo ([id number])[facility] ([facility])[address] [place] [address] 03-25-2024 14:08-0500 SaO2% (BldA) [Mass fraction] 98 % [facility] Comment on above: Performed By: #### [id number] ####JANETH Galo ([id number])[facility] ([facility])[address] [place] [address] 03-25-2024 12:23-0500 Body temperature 37 Filippo Mark MD Work Phone: [facility] 03-25-2024 12:23-0500 SaO2% (BldA) [Mass fraction] 99 % Filippo Mark MD Work Phone: [facility] 03-25-2024 11:32-0500 Body temperature 37 Filippo Mark MD Work Phone: [facility] 03-25-2024 11:32-0500 SaO2% (BldA) [Mass fraction] 99 % Filippo Mark MD Work Phone: [facility] 03-25-2024 10:31-0500 Body temperature 37.0 degrees Celsius [facility] Comment on above: Performed By: #### [id number] ####JANETH Galo ([id number])[facility] ([facility])[address] [place] [address] 03-25-2024 10:31-0500 SaO2% (BldA) [Mass fraction] 99 % [facility] Comment on above: Performed By: #### [id number] ####JANETH Galo ([id number])[facility] ([facility])[address] [place] [address] 03-25-2024 09:31-0500 Body temperature 37 Filippo Mark MD Work Phone: [facility] 03-25-2024 09:31-0500 SaO2% (BldA) [Mass fraction] 99 % Filippo Mark MD Work Phone: [facility] 03-25-2024 09:15-0500 Body temperature 37 Filippo Mark MD Work Phone: [facility] 03-25-2024 09:15-0500 SaO2% (BldA) [Mass fraction] 99 % Filippo Mark MD Work Phone: [facility] Comment on above: Performed By: #### [id number] ####JANETH Galo ([id number])[facility] ([facility])[address] [place], [place] [id number] 03-25-2024 09:13-0500 Body temperature 37.0 degrees Celsius [facility] Comment on above: Performed By: #### [id number] ####JANETH Galo ([id number])[facility] ([facility])[address] [place] [address] 03-25-2024 09:13-0500 SaO2% (BldA) [Mass fraction] 99 % [facility] Comment on above: Performed By: #### [id number] ####JANETH Galo ([id number])[facility] ([facility])[address] [place] [address] 03-25-2024 08:50-0500 Body temperature 37.0 degrees Celsius [facility] Comment on above: Performed By: #### [id number] ####JANETH Galo ([id number])[facility] ([facility])[address] [place], [place] [id number] 03-25-2024 08:50-0500 SaO2% (BldA) [Mass fraction] 99 % [facility] Comment on above: Performed By: #### [id number] ####JANETH Galo ([id number])[facility] ([facility])[address] [place], [place] [id number] 03-18-2024 07:40-0500 Body temperature 97.3 [degF] Cruz Goodman MD Work Phone: [facility] 03-18-2024 07:40-0500 Diastolic blood pressure 82 mm[Hg] Cruz Goodman MD Work Phone: [facility] 03-18-2024 07:40-0500 Heart rate 77 /min Cruz Goodman MD Work Phone: [facility] 03-18-2024 07:40-0500 Respiratory rate 16 /min Cruz Goodman MD Work Phone: [facility] 03-18-2024 07:40-0500 SaO2% (BldA) [Mass fraction] 98 % Cruz Goodman MD Work Phone: [facility] 03-18-2024 07:40-0500 Systolic blood pressure 166 mm[Hg] Cruz Goodman MD Work Phone: [facility] 03-13-2024 07:53-0500 Body mass index (BMI) [Ratio] 34.86 kg/m2 Cruz Goodman MD Work Phone: [facility] 03-13-2024 07:53-0500 Body weight 97.98 kg Cruz Goodman MD Work Phone: [facility] 01-16-2024 15:31-0500 Body temperature 97.5 [degF] Cruz Goodman MD Work Phone: [facility] 01-16-2024 15:31-0500 Diastolic blood pressure 66 mm[Hg] Cruz Goodman MD Work Phone: [facility] 01-16-2024 15:31-0500 Heart rate 79 /min Cruz Goodman MD Work Phone: [facility] 01-16-2024 15:31-0500 Respiratory rate 18 /min Cruz Goodman MD Work Phone: [facility] 01-16-2024 15:31-0500 SaO2% (BldA) [Mass fraction] 95 % Cruz Goodman MD Work Phone: [facility] 01-16-2024 15:31-0500 Systolic blood pressure 101 mm[Hg] Cruz Goodman MD Work Phone: [facility] 01-09-2024 06:40-0500 Body height 167.6 cm Cruz Goodman MD Work Phone: [facility] 01-09-2024 06:40-0500 Body mass index (BMI) [Ratio] 29.86 kg/m2 Cruz Goodman MD Work Phone: [facility] 01-09-2024 06:40-0500 Body weight 83.92 kg Cruz Goodman MD Work Phone: [facility] 11-18-2023 10:34-0400 Body height 165.1 cm Bijan Elmore MD Work Phone: [facility] [place] 11-18-2023 10:34-0400 Diastolic blood pressure 83 mm[Hg] Bijan Elmore MD Work Phone: [facility] [place] 11-18-2023 10:34-0400 Heart rate 82 /min Bijan Elmore MD Work Phone: [facility] [place] 11-18-2023 10:34-0400 SaO2% (BldA) [Mass fraction] 95 % Bijan Elmore MD Work Phone: [facility] [place] 11-18-2023 10:34-0400 Systolic blood pressure 128 mm[Hg] Bijan Elmore MD Work Phone: [facility] [place] 11-28-2022 13:13-0400 Body height 167.[address] Francisco Elmore Work Phone: [facility] 11-28-2022 13:13-0400 Body mass index (BMI) [Ratio] 32.1 kg/m2 Dr. Francisco Elmore Work Phone: [facility] 11-28-2022 13:13-0400 Body temperature 98.2 [degF] Dr. Francisco Elmore Work Phone: [facility] 11-28-2022 13:13-0400 Body weight 90.[address] Francisco Elmore Work Phone: [facility] 11-28-2022 13:13-0400 Diastolic blood pressure 89 mm[Hg] Dr. Francisco Elmore Work Phone: [facility] 11-28-2022 13:13-0400 Heart rate 83 /min Dr. Francisco Elmore Work Phone: [facility] 11-28-2022 13:13-0400 Respiratory rate 16 /min Dr. Francisco Elmore Work Phone: [facility] 11-28-2022 13:13-0400 Systolic blood pressure 151 mm[Hg] Dr. Francisco Elmore Work Phone: [facility] 09-26-2022 14:32-0400 Body height 165.1 cm Bijan Elmore MD Work Phone: [facility] 09-26-2022 14:32-0400 Diastolic blood pressure 83 mm[Hg] Bijan Elmore MD Work Phone: [facility] 09-26-2022 14:32-0400 Heart rate 69 /min Bijan Elmore MD Work Phone: [facility] [place] 09-26-2022 14:32-0400 SaO2% (BldA) [Mass fraction] 96 % Bijan Elmore MD Work Phone: [facility] 09-26-2022 14:32-0400 Systolic blood pressure 149 mm[Hg] Bijan Elmore MD Work Phone: [facility] 04-17-2022 14:36-0500 Body height 165.1 cm Cass Guzman MD Work Phone: [facility] 04-17-2022 14:36-0500 Body mass index (BMI) [Ratio] 29.95 kg/m2 Cass Guzman MD Work Phone: [facility] 04-17-2022 14:36-0500 Body weight 81.65 kg Cass Guzman MD Work Phone: [facility] 04-03-2022 10:16-0500 Body height 165.1 cm Jarvis Almonte MD Work Phone: [facility] [employer] 04-03-2022 10:16-0500 Body mass index (BMI) [Ratio] 29.95 kg/m2 Jarvis Almonte MD Work Phone: [employer] 04-03-2022 10:16-0500 Body temperature 97.9 [degF] Jarvis Almonte MD Work Phone: [facility] [employer] 04-03-2022 10:16-0500 Body weight 81.65 kg Jarvis Almonte MD Work Phone: [employer] 04-03-2022 10:16-0500 Diastolic blood pressure 100 mm[Hg] Jarvis Almonte MD Work Phone: [employer] 04-03-2022 10:16-0500 Heart rate 72 /min Jarvis Almonte MD Work Phone: [facility] [employer] 04-03-2022 10:16-0500 SaO2% (BldA) [Mass fraction] 94 % Jarvis Almonte MD Work Phone: [facility] [employer] 04-03-2022 10:16-0500 Systolic blood pressure 130 mm[Hg] Jarvis Almonte MD Work Phone: [facility] [employer] 03-15-2022 09:35-0500 Diastolic blood pressure 84 mm[Hg] Pacheco Tl DO Work Phone: [facility] [employer] 03-15-2022 09:35-0500 Heart rate 75 /min Pacheco Tl DO Work Phone: [employer] 03-15-2022 09:35-0500 Respiratory rate 20 /min Pacheco Tl DO Work Phone: [employer] 03-15-2022 09:35-0500 Systolic blood pressure 138 mm[Hg] Pacheco Tl DO Work Phone: [employer] 10-10-2021 13:46-0400 Heart rate 88 /min Cass Guzman MD Work Phone: [facility] 10-10-2021 13:46-0400 Respiratory rate 16 /min Cass Guzman MD Work Phone: [facility] 10-10-2021 13:46-0400 SaO2% (BldA) [Mass fraction] 98 % Cass Guzman MD Work Phone: [facility] 09-17-2021 16:43-0400 Body height 165.1 cm Bijan Elmore MD Work Phone: [facility] 09-17-2021 16:43-0400 Body weight 83.92 kg Bijan Elmore MD Work Phone: [facility] [place] 09-17-2021 16:43-0400 Diastolic blood pressure 65 mm[Hg] Bijan Elmore MD Work Phone: [facility] [place] 09-17-2021 16:43-0400 Heart rate 82 /min Bijan Elmore MD Work Phone: [facility] [place] 09-17-2021 16:43-0400 SaO2% (BldA) [Mass fraction] 95 % Bijan Elmore MD Work Phone: [facility] [place] 09-17-2021 16:43-0400 Systolic blood pressure 114 mm[Hg] Bijan Elmore MD Work Phone: [facility] [place] 09-05-2021 08:51-0400 Body height 167.[address] Francisco Elmore Work Phone: [facility] Work Phone: 09-05-2021 08:51-0400 Body mass index (BMI) [Ratio] 30.7 kg/m2 Dr. Francisco Elmore Work Phone: [facility] Work Phone: 09-05-2021 08:51-0400 Body temperature 97.5 [degF] Dr. Francisco Elmore Work Phone: [facility] Work Phone: 09-05-2021 08:51-0400 Body weight 86.[address] Francisco Elmore Work Phone: [facility] Work Phone: 09-05-2021 08:51-0400 Diastolic blood pressure 88 mm[Hg] Dr. Francisco Elmore Work Phone: [facility] Work Phone: 09-05-2021 08:51-0400 Heart rate 87 /min Dr. Francisco Elmore Work Phone: [facility] Work Phone: 09-05-2021 08:51-0400 Respiratory rate 14 /min Dr. Francisco Elmore Work Phone: [facility] Work Phone: 09-05-2021 08:51-0400 SaO2% (BldA) [Mass fraction] 94 % Dr. Francisco Elmore Work Phone: [facility] Work Phone: 09-05-2021 08:51-0400 Systolic blood pressure 139 mm[Hg] Dr. Francisco Elmore Work Phone: [facility] Work Phone: 06-27-2021 13:56-0400 Heart rate 84 /min Justen Morgan MD Work Phone: [facility] 06-27-2021 13:56-0400 SaO2% (BldA) [Mass fraction] 96 % Justen Morgan MD Work Phone: [facility] 06-26-2021 15:09-0400 Diastolic blood pressure 60 mm[Hg] Cheryl Angela ENGINE WATCHMAN.[employer] Work Phone: [facility] [place] 06-26-2021 15:09-0400 Heart rate 82 /min Cheryl Angela ENGINE WATCHMAN.HAND PLUG SHAPER Work Phone: [facility] [place] 06-26-2021 15:09-0400 Systolic blood pressure 125 mm[Hg] Cheryl Angela ENGINE WATCHMAN.HAND PLUG SHAPER Work Phone: [facility] [place] 06-12-2021 18:37-0400 Body temperature 97.5 [degF] Romina Bhat ENGINE WATCHMAN.HAND PLUG SHAPER Work Phone: [facility] [place] 04-26-2022 18:37-0400 Diastolic blood pressure 72 mm[Hg] Romina Praisler-Wood ENGINE WATCHMAN.HAND PLUG SHAPER Work Phone: [facility] [place] 06-12-2021 18:37-0400 Heart rate 96 /min Romina Praisler-Wood ENGINE WATCHMAN.HAND PLUG SHAPER Work Phone: [facility] [place] 06-12-2021 18:37-0400 Respiratory rate 18 /min Romina Praisler-Wood ENGINE WATCHMAN.HAND PLUG SHAPER Work Phone: [facility] 06-12-2021 18:37-0400 SaO2% (BldA) [Mass fraction] 99 % Romina Praisler-Wood ENGINE WATCHMAN.HAND PLUG SHAPER Work Phone: [facility] 06-12-2021 18:37-0400 Systolic blood pressure 122 mm[Hg] Romina Praisler-Wood ENGINE WATCHMAN.[facility] Work Phone: [facility] 04-30-2021 06:00-0400 Body mass index (BMI) [Ratio] 39.27 kg/m2 Bell Scott MD Work Phone: [facility] 04-30-2021 06:00-0400 Body weight 107.05 kg Bell Scott MD Work Phone: [facility] 04-30-2021 05:52-0400 Body temperature 98.2 [degF] Bell Scott MD Work Phone: [facility] 04-30-2021 05:52-0400 Diastolic blood pressure 73 mm[Hg] Bell Scott MD Work Phone: [facility] 04-30-2021 05:52-0400 Heart rate 74 /min Bell Scott MD Work Phone: [facility] 04-30-2021 05:52-0400 Respiratory rate 18 /min Bell Scott MD Work Phone: [facility] 04-30-2021 05:52-0400 SaO2% (BldA) [Mass fraction] 99 % Bell Scott MD Work Phone: [facility] 04-30-2021 05:52-0400 Systolic blood pressure 122 mm[Hg] Bell Scott MD Work Phone: [facility] 04-17-2021 18:05-0500 Body height 165.1 cm Bell Scott MD Work Phone: [facility] 12-29-2020 16:00-0500 Body temperature 100.9 [degF] Adalberto Mcqueen MD Work Phone: [facility] 12-29-2020 16:00-0500 Diastolic blood pressure 81 mm[Hg] Adalberto Mcqueen MD Work Phone: [facility] 12-29-2020 16:00-0500 Heart rate 78 /min Adalberto Mcqueen MD Work Phone: [facility] 12-29-2020 16:00-0500 Respiratory rate 20 /min Adalberto Mcqueen MD Work Phone: [facility] 12-29-2020 16:00-0500 SaO2% (BldA) [Mass fraction] 98 % Adalberto Mcqueen MD Work Phone: [facility] 12-29-2020 16:00-0500 Systolic blood pressure 140 mm[Hg] Adalberto Mcqueen MD Work Phone: [facility] 12-19-2020 08:23-0400 Body height 167.6 cm Adalberto Mcqueen MD Work Phone: [facility] 12-18-2020 17:00-0400 Body mass index (BMI) [Ratio] 31.53 kg/m2 Adalberto Mcqueen MD Work Phone: [facility] 12-18-2020 17:00-0400 Body weight 88.6 kg Adalberto Mcqueen MD Work Phone: [facility] 01-12-2019 08:42-0500 Body Temperature 98.29 [degF] [facility] [place] [place] 01-12-2019 08:42-0500 BP Diastolic 84 mm[Hg] [facility] , [place] 01-12-2019 08:42-0500 BP Systolic 144 mm[Hg] [facility] , [place] 01-12-2019 08:42-0500 Pulse (Heart Rate) 75 /min [facility] [place] 01-12-2019 08:42-0500 Pulse Oximetry 100 % [facility] [place] 01-12-2019 08:42-0500 Respiratory Rate 16 /min [facility] [place] 01-08-2019 13:41-0500 BMI (Body Mass Index) 28.25 kg/m2 [facility] [place] 01-08-2019 13:41-0500 Body weight 79.38 kg [facility] [place] 01-05-2019 12:47-0500 Height 167.6 cm [facility] [place] Encounters Encounter Date Encounter Type Care Provider Facility Start: 08-04-2024 End: 08-05-2024 Refill Bijan Elmore MD Work Phone: [facility] Comment on above: Refill Request Start: 08-04-2024 End: 08-05-2024 Refill Bijan Elmore MD Work Phone: [facility] Comment on above: Refill Request Start: 07-20-2024 End: 07-20-[address] [facility] Start: 07-03-2024 End: 07-05-2024 Refill Cheryl Araujo APRN.HAND PLUG SHAPER Work Phone: [facility] Comment on above: Refill Request Start: 07-02-2024 End: 07-02-2024 Refill Bijan Elmore MD Work Phone: [facility] Comment on above: Refill Request Start: 06-16-2024 End: 06-16-2024 Refill Cheryl Araujo APRN.HAND PLUG SHAPER Work Phone: [facility] Comment on above: Refill Request Start: 05-31-2024 End: 05-31-2024 Refill Cheryl Araujo APRN.HAND PLUG SHAPER Work Phone: [facility] Comment on above: Refill Request Start: 05-25-2024 End: 06-25-2024 ambulatory Bijan Elmore MD Work Phone: [facility] Start: 05-25-2024 End: 05-25-2024 Refill Cheryl Araujo ENGINE WATCHMAN.HAND PLUG SHAPER Work Phone: [facility] Comment on above: Refill Request Start: 05-13-2024 End: 06-12-2024 ambulatory PERCY Leslie [facility] Start: 05-04-2024 End: 05-07-2024 ambulatory Bijan Elmore MD Work Phone: Internal [facility] Start: 04-30-2024 End: 04-30-2024 Refill Bijan Elmore MD Work Phone: [facility] Comment on above: Refill Request Start: 04-26-2024 End: 04-26-2024 Telephone encounter Bijan Elmore MD Work Phone: [facility] Comment on above: [facility] Start: 04-25-2024 End: 05-12-2024 Evaluation and management of inpatient Dinah Noe MD Work Phone: [facility] [place] [facility] Start: 04-25-2024 End: 04-25-2024 Emergency department patient visit Dr. Francisco Elmore MD Work Phone: -Emergency Department Work Phone: Start: 04-08-2024 ambulatory [facility] Facility:[facility] Start: 04-03-2024 End: 04-05-2024 Refill Cheryl Araujo ENGINE WATCHMAN.HAND PLUG SHAPER Work Phone: [facility] Comment on above: Refill Request Start: 04-01-2024 End: 04-02-2024 Refill Bijan Elmore MD Work Phone: [facility] Comment on above: Refill Request Start: 04-01-2024 End: 04-02-2024 Refill Bijan Elmore MD Work Phone: [facility] Comment on above: Refill Request Start: 03-27-2024 End: 04-05-2024 Refill Cheryl Araujo ENGINE WATCHMAN.HAND PLUG SHAPER Work Phone: [facility] Comment on above: Refill Request Start: 03-25-2024 End: 04-01-2024 Evaluation and management of inpatient Filippo Mark MD Work Phone: [facility] Surgical Oncology Comment on above: 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, unspecified fracture morphology, subsequent encounter (Primary Dx); Tibia and fibula open fracture, right, sequela; Chronic multifocal osteomyelitis of right tibia (Multi); PONV (postoperative nausea and vomiting); Constipation, unspecified constipation type Start: 03-24-2024 ambulatory Out of Town Doctor Kaila gibbons:[facility] Start: 03-22-2024 End: 03-22-2024 Refill Cheryl Araujo ENGINE WATCHMAN.HAND PLUG SHAPER Work Phone: [facility] Comment on above: Refill Request Start: 03-16-2024 End: 03-18-2024 Telephone encounter Bijan Elmore MD Work Phone: [facility] Comment on above: [facility] Start: 03-11-2024 End: 03-18-2024 Evaluation and management of inpatient Cruz Goodman MD Work Phone: [place] [address] Comment on above: Chronic multifocal o steomyelitis of right tibia (Multi) (Primary Dx); Tibial plateau fracture, right, sequela; Traumatic arthritis of right knee Start: 03-03-2024 End: 03-03-2024 Refill Kenia Mistry ENGINE WATCHMAN.HAND PLUG SHAPER Work Phone: [facility] Comment on above: Refill Request Start: 03-03-2024 End: 03-03-2024 Refill Bijan Elmore MD Work Phone: [facility] Comment on above: Refill Request Start: 02-28-2024 End: 03-01-2024 Refill Clark Song MD Work Phone: [facility] Comment on above: Refill Request Start: 02-27-2024 Evaluation and manag ement of inpatient CRUZ GOODMAN [facility] Start: 02-24-2024 End: 02-24-2024 Postop follow up visit related to original px Di Jang PA-C Work Phone: [facility] Orthopedic Surgery Comment on above: 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 (Multi) (Primary Dx); Tibial plateau fracture, right, sequela; Wound dehiscence, surgical, initial encounter Start: 02-24-2024 End: 02-24-2024 ambulatory [facility] Start: 02-24-2024 End: 02-24-2024 ambulatory TAHIRKobiLISSAJerry HAMMER~[id number] [facility] Start: 02-03-2024 End: 02-04-2024 Telephone encounter Bijan Elmore MD Work Phone: [facility] Comment on above: Orders (millers) Refill Request Start: 01-30-2024 End: 01-30-2024 Refill Clark Song MD Work Phone: [facility] Comment on above: Refill Request Start: 01-27-2024 End: 01-27-2024 Telephone encounter Bijan Elmore MD Work Phone: [facility] Comment on above: Orders (millers) Start: 01-26-2024 End: 01-27-2024 Refill Cheryl Araujo APRN.CNP Work Phone: [facility] Comment on above: Refill Request Start: 01-09-2024 End: 01-16-2024 Evaluation and management of inpatient Cruz Goodman MD Work Phone: [facility] [place] [facility] Comment on above: Tibia and fibula ope n fracture, right, sequela (Primary Dx); Traumatic arthritis of left hip; Postoperative pain Start: 01-06-2024 End: 01-06-2024 Refill Bijan Elmore MD Work Phone: [facility] Comment on above: Refill Request Start: 12-31-2023 End: 12-31-2023 Telephone encounter Bijan Elmore MD Work Phone: Family Practice Comment on above: Results; Orders Start: 12-30-2023 End: 12-30-2023 ambulatory CRUZ Zbigniew [facility] Start: 12-30-2023 End: 12-30-2023 Encounter for other preprocedural examination CRUZ Coy [facility] Start: 12-30-2023 End: 12-30-2023 Encounter for preprocedural cardiovascular examination CRUZ Coy [facility] Start: 12-30-2023 End: 12-30-2023 Encounter for preprocedural respiratory examination CRUZ Zbigniew [facility] Start: 12-30-2023 End: 12-30-2023 Refill Cheryl Araujo APRN.HAND PLUG SHAPER Work Phone: Family Practice Comment on above: Refill Request Start: 12-18-2023 End: 12-18-2023 ambulatory NO ASSIGNED PCP GENERIC PROVIDER [facility] Start: 12-17-2023 End: 12-19-2023 ambulatory BIJAN ELMORE Facility:[facility] Comment on above: Chair Start: 12-17-2023 End: 12-17-2023 Subsequent hospital visit by physician [facility] Work Phone: Cardiology Lab Comment on above: Essential hypertensi on [I10] Start: 12-16-2023 End: 12-16-2023 ambulatory Cheryl Araujo APRN.HAND PLUG SHAPER Work Phone: Family Practice Comment on above: Wheelchair Start: 12-15-2023 End: 12-15-2023 ambulatory [facility] Start: 12-15-2023 End: 12-15-2023 Subsequent hospital visit by physician Aurelio Mancini [address] [facility] Comment on above: Traumatic arthritis of right knee Tibial plateau fract ure, right, sequela Start: 12-15-2023 End: 12-15-2023 Telephone encounter Bijan Elmore MD Work Phone: Family Practice Comment on above: Order for wheelchair Start: 12-10-2023 End: 12-10-2023 Refill Bijan Elmore MD Work Phone: [facility] Comment on above: Refill Request Start: 12-10-2023 End: 12-10-2023 Telephone encounter Bijan Elmore MD Work Phone: [facility] Comment on above: Rx sent to wrong pha rmacy Start: 12-09-2023 End: 12-09-2023 ambulatory Bijan Elmore MD Work Phone: [facility] Comment on above: Rx .. Start: 12-05-2023 End: 12-05-2023 Refill Cheryl Araujo APRN.CNP Work Phone: [facility] Comment on above: Refill Request Start: 12-01-2023 End: 12-01-2023 ambulatory NO ASSIGNED PCP GENERIC PROVIDER [facility] Start: 12-01-2023 End: 12-01-2023 Office outpatient visit 40 minutes Cruz Goodman MD Work Phone: [facility] Comment on above: 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 (Multi) (Primary Dx); Tibial plateau fracture, right, sequela Start: 12-01-2023 End: 12-01-2023 ambulatory CRUZ GOODMAN [facility] Start: 11-23-2023 End: 11-24-2023 Refill Bijan Elmore MD Work Phone: [facility] Comment on above: Refill Request Start: 11-21-2023 End: 11-21-2023 Telephone encounter Bijan Elmore MD Work Phone: Neurology Comment on above: Received Outside Med ical Records ([facility] Order for incontinence supplies 11/21/2023) Start: 11-18-2023 End: 11-18-2023 ambulatory SELF Facility:[facility] Start: 11-18-2023 End: 11-18-2023 Office outpatient visit 25 minutes Bijan Elmore MD Work Phone: [facility] Comment on above: Traumatic arthritis of left hip (Primary Dx); Status post left hip replacement; Chronic hepatitis C without hepatic coma (HCC); Acquired hypothyroidism; Continuous dependence on cigarette smoking; Carpal tunnel syndrome, right; Essential hypertension; Chronic anxiety; Newly recognized heart murmur Start: 11-11-2023 End: 11-12-2023 Refill Bijan Elmore MD Work Phone: [facility] Comment on above: Refill Request Start: 11-07-2023 End: 11-11-2023 Refill Bijan Elmore MD Work Phone: [facility] Comment on above: Refill Request Start: 11-02-2023 End: 11-03-2023 Refill Cheryl Miller ENGINE WATCHMAN.HAND PLUG SHAPER Work Phone: [facility] Comment on above: Refill Request Start: 10-12-2023 End: 10-13-2023 Refill Bijan Elmore MD Work Phone: [facility] Comment on above: Refill Request Start: 10-08-2023 End: 10-08-2023 Refill Bijan Elmore MD Work Phone: [facility] Comment on above: Refill Request Start: 10-08-2023 End: 10-10-2023 Refill Bijan Elmore MD Work Phone: [facility] Comment on above: Refill Request Start: 09-28-2023 Orders Only Bijan moralez MD Work Phone: [facility] Start: 09-15-2023 Refill Bijan moralez MD Work Phone: [facility] Comment on above: Refill Request [facility] Start: 09-14-2023 ambulatory Bijan moralez MD Work Phone: [facility] Comment on above: Med approval Q. Refill Request Start: 09-08-2023 Refill Bijan moralez MD Work Phone: [facility] Comment on above: Refill Request Start: 08-30-2023 Refill Cheryl Miller ENGINE WATCHMAN.HAND PLUG SHAPER Work Phone: [facility] Comment on above: Refill Request Start: 08-29-2023 Refill Clark landeros MD Work Phone: [facility] Comment on above: Refill Request Start: 08-25-2023 End: 08-25-2023 Subsequent hospital visit by physician Keith Lloyd X-Ray 2 [facility] Comment on above: Traumatic arthritis of right knee Start: 08-25-2023 End: 08-25-2023 Office outpatient visit 40 minutes Cruz Goodman MD Work Phone: [facility] Comment on above: Traumatic arthritis of right knee; Pain of right tibia Start: 08-25-2023 End: 08-25-[address] [facility] Start: 08-19-2023 ambulatory Cheryl Angela ENGINE WATCHMAN.HAND PLUG SHAPER Work Phone: [facility] Comment on above: External catheter Start: 08-19-2023 Telephone encounter Bijan Elmore MD Work Phone: [facility] Comment on above: Orders ([facility]) Start: 08-15-2023 Refill Bijan moralez MD Work Phone: [facility] Comment on above: Refill Request Start: 07-16-2023 ambulatory Cheryl Angela ENGINE WATCHMAN.HAND PLUG SHAPER Work Phone: [facility] Comment on above: Clonadine Refill Request Start: 07-12-2023 Refill Bijan moralez MD Work Phone: [facility] Comment on above: Refill Request Start: 07-07-2023 End: 07-07-2023 ambulatory [facility] Start: 07-07-2023 End: 07-07-2023 Subsequent hospital visit by physician Aurelio Mancini [address] 1 [facility] Comment on above: Avascular necrosis o f bone of left hip (Multi) Start: 06-25-2023 ambulatory Bijan moralez MD Work Phone: [facility] [place] Start: 06-17-2023 Refill Bijan moralez MD Work Phone: [facility] Comment on above: Refill Request Start: 06-12-2023 End: 06-12-2023 ambulatory [facility] Start: 06-12-2023 End: 06-12-2023 ambulatory [facility] Start: 06-12-2023 End: 06-12-2023 Office outpatient new 60 minutes Cruz Goodman MD Work Phone: [facility] Comment on above: Hip pain, chronic, l eft (Primary Dx); Avascular necrosis of bone of left hip (Multi); Traumatic arthritis of left hip; Traumatic arthritis of right knee; Closed posterior wall acetabular fx, left, sequela Start: 06-12-2023 End: 06-12-2023 Subsequent hospital visit by physician [facility] X[facility]Ray 1 [facility] Comment on above: Hip pain, chronic, l eft Start: 06-10-2023 Refill Bijan moralez MD Work Phone: [facility] Comment on above: Refill Request Start: 06-06-2023 Refill Bijan moralez MD Work Phone: [facility] Comment on above: Refill Request Start: 06-05-2023 ambulatory Bijan moralez MD Work Phone: [facility] Comment on above: Lft arm relief Start: 06-03-2023 Telephone encounter Bijan Elmore MD Work Phone: [facility] Comment on above: Orders ([facility]) Start: 05-20-2023 Refill Bijan moralez MD Work Phone: [facility] Comment on above: Refill Request Start: 05-04-2023 ambulatory Bijan moralez MD Work Phone: [facility] Start: 05-04-2023 Patient encounter procedure Bijan Elmore MD Work Phone: [facility] Comment on above: Referral #2 [facility] Q. Start: 04-28-2023 ambulatory Bijan moralez MD Work Phone: [facility] Start: 04-28-2023 Patient encounter procedure Bijan Elmore MD Work Phone: [facility] Comment on above: Referral Q. Start: 04-23-2023 Refill Bijan moralez MD Work Phone: [facility] Comment on above: Refill Request Start: 04-15-2023 Refill Clark landeros MD Work Phone: [facility] Comment on above: Refill Request Start: 03-26-2023 Orders Only Cheryl Angela ENGINE WATCHMAN.HAND PLUG SHAPER Work Phone: [facility] Comment on above: Seizures (HCC) (Prim shayla Dx) Start: 03-25-2023 Refill Bijan moralez MD Work Phone: [facility] Comment on above: Refill Request Start: 01-24-2023 Refill Bijan moralez MD Work Phone: [facility] Comment on above: Refill Request J Jono Topical Rx Q. Start: 12-31-2022 Telephone encounter Bijan Elmore MD Work Phone: [facility] Comment on above: Letter (Fax sent to Dr Kit Castellanos 12/31/2022) Start: 12-24-2022 Telephone encounter Bijan Elmore MD Work Phone: [facility] Comment on above: Medication Request ( [facility] Levetiracetam ) Start: 12-23-2022 Telephone encounter Bijan Elmore MD Work Phone: [facility] Comment on above: Orders Start: 12-04-2022 Refill Cheryl Angela ENGINE WATCHMAN.HAND PLUG SHAPER Work Phone: [facility] Comment on above: Refill Request Start: 12-02-2022 Telephone encounter Bijan Elmore MD Work Phone: [facility] Comment on above: wound culture ([facility] 1 ) Start: 11-29-2022 Non-patient / Non-visit Dr. Vipul Elmore Work Phone: [facility] Start: 11-28-2022 End: 12-17-[address] Francisco Elmore Work Phone: [facility] Work Phone: Start: 11-28-2022 End: 12-17-[address] Francisco Elmore Work Phone: [facility] Work Phone: Start: 11-26-2022 ambulatory Bijan moralez MD Work Phone: Family Practice Comment on above: Lab work Q Start: 11-21-2022 ambulatory Bijan moralez MD Work Phone: Family Practice Comment on above: Painful rt leg. Start: 10-31-2022 Telephone encounter Bijan Elmore MD Work Phone: Family Practice Comment on above: Orders (Incontinence supplies [facility] ) Received Outside Med ical Records (Imaging [facility] 10/30/22) Start: 10-30-2022 End: 10-30-2022 ambulatory [facility] Work Phone: Start: 10-30-2022 End: 10-30-2022 Patient encounter procedure [facility]Cat [facility], [facility] Work Phone: Start: 10-29-2022 Telephone encounter Bijan Elmore MD Work Phone: Family Practice Comment on above: Orders (HOME CARE NU RSING) Start: 10-24-2022 Telephone encounter Bijan Elmore MD Work Phone: Family Practice Comment on above: Received Outside Med ical Records ([facility] Orders for adult underwear disposable underpad 10/24/2022) Start: 10-20-2022 Refill Cheryl Miller APRN.HAND PLUG SHAPER Work Phone: Family Practice Comment on above: Refill Request Start: 10-17-2022 Social Work Alicia Josue [facility] Social Work Comment on above: Needs assistance wit h community resources (Primary Dx) Orders Start: 09-27-2022 Social Work Alicia Josue VIDEO ARCADE MANAGER Prim [facility] Social Work Comment on above: Needs assistance wit h community resources (Primary Dx) Start: 09-26-2022 End: 09-26-2022 Patient encounter procedure Bijan Elmore MD Work Phone: [facility] Comment on above: Urinary incontinence , unspecified type (Primary Dx); Seizures (HCC); Chronic anxiety; Hypertension, essential; Hypothyroidism, acquired; Chronic pain syndrome; Chronic left hip pain; Gastroesophageal reflux disease, unspecified whether esophagitis present; Nausea; Screening for lipid disorders; Chronic ulcer of right leg, 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); Nocturnal enuresis; Stress incontinence; Functional urinary incontinence Start: 09-18-2022 Refill Bijan moralez MD Work Phone: [facility] Comment on above: Refill Request Start: 07-25-2022 Refill Bijan moralez MD Work Phone: [facility] Comment on above: Refill Request Start: 07-17-2022 ambulatory Bijan moralez MD Work Phone: [facility] [place] Start: 07-05-2022 Refill Bijan moralez MD Work Phone: [facility] Comment on above: Refill Request Start: 06-24-2022 Telephone encounter Bijan Elmore MD Work Phone: [facility] Comment on above: DME order Start: 05-31-2022 Refill Cheryl Miller APRN.HAND PLUG SHAPER Work Phone: [facility] Comment on above: Refill Request Start: 05-23-2022 Telephone encounter Isiah Dietrich MD Work Phone: [facility] Clinical Communication Comment on above: New Patient Start: 04-28-2022 Refill Bijan moralez MD Work Phone: [facility] Comment on above: Refill Request Start: 04-17-2022 End: 04-18-2022 ambulatory [facility] Start: 04-17-2022 End: 04-17-2022 Office outpatient visit 15 minutes Cass Guzman MD Work Phone: [facility] Comment on above: Left hip pain (Prima ry Dx); Acute pain of right knee; Open wound of right knee, subsequent encounter Start: 04-17-2022 End: 04-17-2022 Office outpatient visit 25 minutes Cass Guzman MD Work Phone: [facility] Comment on above: Left hip pain (Prima ry Dx); Acute pain of right knee; Open wound of right knee, subsequent encounter Start: 04-17-2022 Orders Only Andre ward MD Work Phone: [facility] Start: 04-17-2022 Telephone encounter Nicolas valdes MD Work Phone: [facility] Comment on above: Page out Start: 04-17-2022 End: 04-17-2022 Subsequent hospital visit by physician Cass Guzman MD Work Phone: [facility] Comment on above: Left hip pain Start: 04-09-2022 Orders Only Damian Moya PA-C Work Phone: [facility] Comment on above: Left hip pain (Prima ry Dx) Start: 04-03-2022 Refill Cheryl Miller APRN.CNP Work Phone: [facility] [place] Comment on above: Refill Request Start: 04-03-2022 End: 04-03-2022 [facility] Start: 04-03-2022 End: 04-03-2022 Office outpatient visit 40 minutes Jarvis Almonte MD Work Phone: [facility] [place] Comment on above: Traumatic open wound of right lower leg with infection, initial encounter (Primary Dx); MRSA infection Start: 03-18-2022 Telephone encounter Bijan Elmore MD Work Phone: Family Practice Comment on above: Received Outside Med ical Records ([facility] summary visit 03/15/2022) Start: 03-15-2022 End: 03-16-2022 ambulatory PACHECO BOOTHE [facility] Start: 03-15-2022 End: 03-15-2022 Subsequent hospital visit by physician Pacheco Boothe DO Work Phone: [facility] Comment on above: 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); Venous insufficiency; Lymphedema Start: 03-13-2022 Refill Bijan moralez MD Work Phone: Family Medicine Comment on above: Refill Request; Refi ll Request Start: 03-06-2022 Refill Bijan moralez MD Work Phone: NURSE CUSTOMER SUPPORT REPRESENTATIVE Comment on above: Refill Request Start: 03-04-2022 Refill Bijan moralez MD Work Phone: [facility] [place] Comment on above: Refill Request Start: 02-20-2022 Telephone encounter Amelia Marie LPN [facility] [place] Comment on above: Cancelled Appointmen t Start: 02-03-2022 Refill Bijan moralez MD Work Phone: Family Practice Comment on above: Refill Request Start: 02-02-2022 Refill Bijan moralez MD Work Phone: Family Practice Comment on above: Refill Request Start: 01-31-2022 End: 02-01-2022 ambulatory PACHECO BOOTHE [facility] Start: 01-09-2022 End: 01-09-2022 ambulatory JARVIS ALMONTE [facility] Start: 12-24-2021 End: 12-24-2021 ambulatory FRANCISCO WARE [facility] Start: 12-17-2021 End: 12-17-2021 ambulatory MACK NEW [facility] Start: 12-13-2021 ambulatory CASSY KOR[facility] Start: 12-12-2021 End: 12-12-2021 ambulatory Nurse Triage Veronica/Hermelinda Work Phone: Nurse Phone Triage Comment on above: Nurse Triage Call (W ound care concern ) Start: 12-11-2021 ambulatory Bijan moralez MD Work Phone: [facility] Comment on above: Nurse Triage Call Start: 11-30-2021 ambulatory FRANCISCO Powell [facility] Start: 11-28-2021 Telephone encounter Bijan Elmore MD Work Phone: Family Practice Comment on above: Request Outside [facility] Records ([facility]) Start: 11-27-2021 Telephone encounter Bijan Elmore MD Work Phone: Family Practice Comment on above: Orders (Home health care for wound) Start: 11-16-2021 End: 11-16-2021 ambulatory MACK Bianchi [facility] Start: 11-05-2021 Telephone encounter Bijan Elmore MD Work Phone: Family Practice Comment on above: Electronic Communica tion Start: 11-02-2021 Refill Bijan moralez MD Work Phone: Family [facility] Comment on above: Refill Request Start: 10-26-2021 ambulatory [facility] Start: 10-15-2021 ambulatory Jyoti Ni [facility] Start: 10-10-2021 End: 10-11-2021 ambulatory CASS GUZMAN [facility] Start: 10-10-2021 Telephone encounter Bijan Elmore MD Work Phone: Family [facility] Comment on above: Orders (Woundcare Ad [employer] patient care solution) Start: 10-10-2021 End: 10-10-2021 Subsequent hospital visit by physician Cass Guzman MD Work Phone: [facility] Fa[facility]em Dept Start: 10-09-2021 Telephone encounter Bijan Elmore MD Work Phone: [facility] Comment on above: Patient Question Start: 10-03-2021 Telephone encounter Bijan Elmore MD Work Phone: Family Practice Comment on above: Orders ([employer] pt care solutions) Start: 09-17-2021 End: 09-17-2021 Patient encounter procedure Bijan Elmore MD Work Phone: [facility] Comment on above: Left hip pain (Prima ry Dx); Seizures (HCC); Chronic anxiety; Right leg pain Start: 09-17-2021 Refill Cheryl Angela ENGINE WATCHMAN.HAND PLUG SHAPER Work Phone: [facility] Comment on above: Refill Request Start: 09-17-2021 Telephone encounter Bijan Elmore MD Work Phone: [facility] Comment on above: Refill Request Start: 09-16-2021 ambulatory Elsa azul RN NURSE CUSTOMER SUPPORT REPRESENTATIVE Comment on above: Medication Problem Start: 09-14-2021 Telephone encounter Bijan Elmore MD Work Phone: [facility] Comment on above: Leg Pain Start: 09-08-2021 Nurse Triage Monisha Estevez RN NURSE CUSTOMER SUPPORT REPRESENTATIVE Comment on above: Refill Request Start: 09-06-2021 Telephone encounter Bijan Elmore MD Work Phone: [facility] Comment on above: Received Outside Med [facility] Records (ED summary [facility]) Start: 09-05-2021 Non-patient / Non-visit Dr. Vipul Elmore Work Phone: [facility] Start: 09-05-2021 End: 09-05-2021 Emergency department patient visit Dr. Francisco Elmore Work Phone: [facility] Start: 09-04-2021 Telephone encounter Bijan Elmore MD Work Phone: [facility] Comment on above: Orders ([facility]) Start: 08-29-[address] Jose Elmore Work Phone: [facility]Occupational Therapy Start: 08-21-2021 Refill Cheryl Angela ENGINE WATCHMAN.HAND PLUG SHAPER Work Phone: [facility] Comment on above: Refill Request Start: 08-15-2021 ambulatory Bijan moralez MD Work Phone: Internal [facility] [place] Start: 08-06-2021 Refill Bijan moralez MD Work Phone: Family Practice Comment on above: Refill Request Start: 07-31-2021 Telephone encounter Bijan Elmore MD Work Phone: Family Practice Comment on above: Orders ([facility]) Start: 07-26-2021 Telephone encounter Bijan Elmore MD Work Phone: Family Practice Comment on above: Received Outside Med ical Records ([facility] [employer]) Start: 07-23-2021 Telephone encounter Bijan Elmore MD Work Phone: Family Practice Comment on above: Medication Request Start: 07-20-2021 Telephone encounter Bijan Elmore MD Work Phone: Family Practice Comment on above: Received Outside Med ical Records ([facility] Occupational [facility] 07/19/2021) Start: 07-19-2021 Refill Cheryl Miller APRN.CNP Work Phone: Family Practice Comment on above: Refill Request Start: 07-19-2021 Telephone encounter Bijan Elmore MD Work Phone: Family Practice Comment on above: Rehab service (Evalu ation from [facility] PT) Start: 07-13-2021 Telephone encounter Bijan Elmore MD Work Phone: Family Practice Comment on above: Orders ([facility] 07/12[facility]) Refill Request Start: 07-12-2021 End: 07-12-2021 ambulatory Bijan Elmore MD Work Phone: Family Practice Comment on above: NO SHOW (Primary Dx) Start: 07-12-2021 End: 07-12-2021 Telemedicine consultation with patient Bijan Elmore MD Work Phone: [facility] Start: 07-09-2021 Telephone encounter Bijan Elmore MD Work Phone: Family Practice Comment on above: Orders ([facility] 07/03/2021) Orders ([facility] 07/06/2021) Patient Request orders faxed (review ed and signed by PCP sent back to [facility].) Start: 07-05-2021 Telephone encounter Bijan Elmore MD Work Phone: [facility] Comment on above: Orders Orders (fax to [facility] for Occupational and physical therapy to [phone]) Patient Question (pa tient requesting call back) Start: 07-04-2021 Telephone encounter Bijan Elmore MD Work Phone: Family [facility] Comment on above: [facility] Update [facility] Orders (Signed by PC P and faxed to [facility]) Start: 07-03-2021 Telephone encounter Bijan Elmore MD Work Phone: [facility] Comment on above: Patient Update ([facility]) Start: 07-02-2021 Telephone encounter Bijan Elmore MD Work Phone: Family [facility] Comment on above: Received Outside Med ical Records (from [facility]) Start: 06-29-2021 Telephone encounter Bijan Elmore MD Work Phone: Family [facility] Comment on above: Orders ([employer] Patient Care Solution 06/29/2021 wound care supplies) Patient Update Start: 06-28-2021 Telephone encounter Bijan Elmore MD Work Phone: [facility] Comment on above: signed orders (faxed to [facility] as requested.) Start: 06-27-2021 End: 06-27-2021 Patient encounter procedure Justen Morgan MD Work Phone: Pain Management Comment on above: Traumatic injury (Pr imary Dx); Chronic pain syndrome; Multiple fractures Start: 06-27-2021 Telephone encounter Cheryl guerra ENGINE WATCHMAN.HAND PLUG SHAPER Work Phone: [facility] Comment on above: Results Appointment (Pre-Rosalind ointment Notification ) Start: 06-26-2021 End: 06-26-2021 Patient encounter procedure Cheryl Miller APRN.HAND PLUG SHAPER Work Phone: Family Practice Comment on above: Hypertension, essent ial (Primary Dx); Gastroesophageal reflux disease, unspecified whether esophagitis present; Chronic pain syndrome; Hypothyroidism, acquired; Debility; Seizures (HCC); Chronic anxiety Start: 06-26-2021 Telephone encounter Bijan Elmore MD Work Phone: Family [facility] Comment on above: Patient Update (From [facility]) Start: 06-22-2021 Telephone encounter Bijan Elmore MD Work Phone: Family Medicine Comment on above: Orders ([facility] re 06/21/2021) Start: 06-20-2021 Telephone encounter Bijan Elmore MD Work Phone: Family Practice Comment on above: Appointment (Video) Start: 06-20-2021 End: 06-20-2021 ambulatory Bijan Elmore MD Work Phone: Family [facility] Comment on above: Chronic anxiety ([facility] monisha Dx); Fractures, multiple; Open fracture of condyle of right tibia; Fx malar & max bones ace LeFort 3 open (HCC); Traumatic closed nondisplaced fracture of left acetabulum, sequela; Laceration of spleen, sequela Start: 06-20-2021 End: 06-20-2021 Telemedicine consultation with patient Bijan Elmore MD Work Phone: [facility] Start: 06-18-2021 Telephone encounter Bijan Elmore MD Work Phone: [facility] Comment on above: Received Outside Med ical Records (from [facility]) Orders (for occupati onal therapy sent to [facility]) Patient Update (from [facility]) Orders (faxed to [facility]) Medication Request ( clonazepam) Start: 06-13-2021 Telephone encounter Bijan Elmore MD Work Phone: Family [facility] Comment on above: Orders ([facility] re orders 06/12/2021) Start: 06-12-2021 End: 06-12-2021 Patient encounter procedure Romina Bhat APRN.CNP Work Phone: [facility] Comment on above: Leg wound, right, in itial encounter (Primary Dx) Start: 06-07-2021 Nurse Triage Bijan moralez MD Work Phone: [facility] Comment on above: Orders Start: 05-29-2021 Telephone encounter Bijan Elmore MD Work Phone: [facility] Comment on above: Orders Start: 05-28-2021 ambulatory [facility] Start: 05-23-2021 ambulatory Bijanrobi El[facility] Start: 05-15-2021 ambulatory Elsie [facility] Start: 05-15-2021 End: 05-15-2021 Subsequent hospital visit by physician Elsie Moreno MD Work Phone: [facility] Radiology Start: 04-18-2021 End: 04-30-2021 Evaluation and management of inpatient UNKNOWN PROVIDER [facility] Start: 04-17-2021 End: 04-30-2021 Evaluation and management of inpatient Bell Scott MD Work Phone: [facility] 7W MED SURG Comment on above: Debility (Primary Dx ); Open wound knee/leg with tendon involvment, right, sequela; Anxiety Start: 03-29-2021 End: 04-12-2021 ambulatory UNKNOWN PROVIDER [facility] Start: 01-26-2021 End: 02-15-2021 Evaluation and management of inpatient UNKNOWN PROVIDER [facility] Start: 01-08-2021 ambulatory [facility] Start: 12-20-2020 End: 12-20-2020 ambulatory UNKNOWN PROVIDER Facility:[facility] Start: 12-18-2020 End: 12-18-2020 ambulatory UNKNOWN PROVIDER Facility:[facility] Start: 12-18-2020 End: 12-29-2020 Evaluation and management of inpatient Adalberto Mcqueen [facility] Start: 12-18-2020 End: 12-29-2020 Evaluation and management of inpatient Adalberto Mcqueen MD Work Phone: [facility] Start: 02-25-2019 End: 02-25-2019 Subsequent hospital visit by physician Clementine Elkins ENGINE WATCHMAN - CULINARY INTERN Work Phone: [facility] Start: 02-11-2019 End: 02-11-2019 Subsequent hospital visit by physician Clementine Elkins ENGINE WATCHMAN - CULINARY INTERN Work Phone: [facility] Start: 02-04-2019 End: 02-04-2019 Subsequent hospital visit by physician Clementine Elkins ENGINE WATCHMAN - CULINARY INTERN Work Phone: [facility] Start: 02-01-2019 End: 02-01-2019 Subsequent hospital visit by physician Clementine Elkins ENGINE WATCHMAN - CULINARY INTERN Work Phone: [facility] Start: 01-25-2019 End: 01-25-2019 Subsequent hospital visit by physician Clementine Elkins ENGINE WATCHMAN - CULINARY INTERN Work Phone: [facility] Start: 01-18-2019 End: 01-18-2019 Subsequent hospital visit by physician Clementine Elkins Work Phone: [facility] Start: 01-05-2019 End: 01-12-2019 Evaluation and management of inpatient Clau Durham Work Phone: [facility] MED SURG Comment on above: IV drug user (Primar y Dx); Necrotizing fasciitis (HCC); Cellulitis of right upper extremity Procedures Date Procedure Procedure Detail Performing Clinician Start: 05-12-2024 Comprehensive metabo lic panel Randal Blank MD Work Phone: Start: 05-11-2024 Blood count complete auto&auto difrntl wbc Randal Blank MD Work Phone: Start: 05-11-2024 Vnpnxr 3 years/> phy s/qhp skill Jose Mathis DO Work Phone: Start: 05-11-2024 Comprehensive metabo lic panel Randal Blank MD Work Phone: Start: 05-10-2024 Heparin assay Cruz figueroa MD Work Phone: Start: 05-10-2024 Heparin assay Maurisio briggs MD Work Phone: Start: 05-10-2024 Heparin assay Maurisio briggs MD Work Phone: Start: 05-10-2024 Heparin assay Maurisio briggs MD Work Phone: Start: 05-10-2024 Heparin assay Maurisio briggs MD Work Phone: Start: 05-09-2024 Heparin assay Maurisio briggs MD Work Phone: Start: 05-09-2024 Dup-scan xtr veins c omplete bilateral study Jose Blumenschein DO Work Phone: Start: 05-09-2024 Basic metabolic pane l calcium total Antoinette Arambula MD Work Phone: Start: 05-08-2024 Blood count complete automated Yohannes Fofana MD Work Phone: Start: 05-08-2024 Blood typing serolog ic rh (d) Jose Blumenschein DO Work Phone: Start: 05-08-2024 PREPARE RBC Jose Tampa enschein DO Work Phone: Start: 05-08-2024 Basic metabolic pane l calcium total Antoinette Arambula MD Work Phone: Start: 05-07-2024 Basic metabolic pane l calcium total Antoinette Arambula MD Work Phone: Start: 05-06-2024 Basic metabolic pane l calcium total Antoinette Arambula MD Work Phone: Start: 05-05-2024 Culture fngi mold/ye ast prsmptv oth xcpt blood Cruz Goodman MD Work Phone: Start: 05-05-2024 PULSE OXIMETRY, CONTINUOUS Enrike Fair DO Work Phone: Start: 05-05-2024 XR tomography Unspec ified body region Antoinette Arambula MD Work Phone: Start: 05-05-2024 End: 05-05-2024 TRANSFUSE RED BLOOD CELLS Cindy More iy ENGINE WATCHMAN-CEMENT CONVEYOR OPERATOR, DNP Work Phone: Start: 05-05-2024 Injection aa&/strd f emoral nerve Apoorva Howell MD Work Phone: Start: 05-05-2024 End: 05-05-2024 Amputation thigh through femur any level Cruz Goodman MD Work Phone: Start: 05-05-2024 End: 05-05-2024 Removal implant deep Cruz Goodman MD Work Phone: Start: 05-05-2024 Urine test visual color cmprsn meths Kd Copeland MD Work Phone: Start: 05-05-2024 Basic metabolic pane l calcium total Antoinette Arambula MD Work Phone: Start: 05-04-2024 PREPARE RBC Antoinette edwards MD Work Phone: Start: 05-04-2024 Basic metabolic pane l calcium total Sandi O'Uvaldo PA-C Work Phone: Start: 05-03-2024 Basic metabolic pane l calcium total Heathbhavyaleti Ward Herlinda ENGINE WATCHMAN-HAND PLUG SHAPER Work Phone: Start: 05-03-2024 Basic metabolic pane l calcium total Sandi O'Uvaldo PA-C Work Phone: Start: 05-03-2024 Blood typing serolog ic rh (d) Sandi O'Uvaldo PA-C Work Phone: Start: 05-02-2024 Basic metabolic pane l calcium total Sandi O'Uvaldo PA-C Work Phone: Start: 05-01-2024 Basic metabolic pane l calcium total Comfort R Tyo ENGINE WATCHMAN-[employer]ER Work Phone: Start: 04-30-2024 Basic metabolic pane l calcium total Comfort R Tyo ENGINE WATCHMAN-[employer]ER Work Phone: Start: 04-29-2024 Basic metabolic pane l calcium total Comfort R Tyo ENGINE WATCHMAN-[employer]ER Work Phone: Start: 04-29-2024 SLIDE REQUEST Tr ga MD Work Phone: Start: 04-28-2024 End: 04-28-2024 Culture fngi mold/yeast prsmptv oth xcpt blood Katie Evert PA-C Work Phone: Start: 04-28-2024 End: 04-28-2024 Debridement muscle & fascia 20 sq cm/< Filippo Mark MD Work Phone: Start: 04-28-2024 Basic metabolic pane l calcium total Comfort R Tyo ENGINE WATCHMAN-[employer] Work Phone: Start: 04-28-2024 End: 04-28-2024 Blood typing serologic rh (d) Comfort R Tyo ENGINE WATCHMAN-[employer]ER Work Phone: Start: 04-27-2024 Drug screen quantita tive vancomycin Katie Evert PA-C Work Phone: Start: 04-27-2024 Alkaloids not otherw ise specified Patricio Bullard MD Work Phone: Start: 04-27-2024 Basic metabolic pane l calcium total Katie Evert PA-C Work Phone: Start: 04-27-2024 Drug screen quantita tive vancomycin Castro Sharpe PharmD Work Phone: Start: 04-26-2024 Ct lower extremity w/contrast material Antoinette Arambula MD Work Phone: Start: 04-26-2024 Cul bact xcpt urine blood/stool aerobic isol Pato Wilder MD Work Phone: Start: 04-26-2024 Comprehensive metabo lic panel Anitha De La O PA-C Work Phone: Start: 04-25-2024 Radiologic exam ches t single view Shahriar Arceo MD Work Phone: Start: 04-25-2024 Radiologic examinati on femur minimum 2 views Shahriar Arceo MD Work Phone: Start: 04-25-2024 End: 04-25-2024 EXTRA TUBES Dinah Noe MD Work Phone: Start: 04-25-2024 End: 04-25-2024 PST TOP Dinah Noe MD Work Phone: Start: 04-25-2024 SST TOP Dinah Noe MD Work Phone: Start: 04-25-2024 End: 04-25-2024 Basic metabolic panel calcium total Patricio Bullard MD Work Phone: Start: 04-25-2024 End: 04-25-2024 C-reactive protein Shahriar Arceo MD Work Phone: Start: 04-25-2024 End: 04-25-2024 Plain X-ray of femur Dr. Francisco Elmore MD Work Phone: Start: 04-25-2024 Plain X-ray of tibia and fibula Dr. Francisco Elmore MD Work Phone: Start: 04-01-2024 Basic metabolic pane l calcium total Rajeev Pate ENGINE WATCHMAN-[employer]ER Work Phone: Start: 03-31-2024 Basic metabolic pane l calcium total Rajeev Pate ENGINE WATCHMAN-[employer]ER Work Phone: Start: 03-31-2024 C-reactive protein Deborah porsha Loyd PA-C Work Phone: Start: 03-30-2024 Basic metabolic pane l calcium total Comfort R Tyo ENGINE WATCHMAN[employer]ER Work Phone: Start: 03-29-2024 End: 03-29-2024 Radiologic examination knee 1/2 views Amie Cha PA-C Work Phone: Start: 03-29-2024 Basic metabolic pane l calcium total Anitha De La O PA-C Work Phone: Start: 03-29-2024 Basic metabolic pane l calcium total Comfort R Tyo ENGINE WATCHMAN[employer] Work Phone: Start: 03-29-2024 C-reactive protein Manny en O'Uvaldo PA-C Work Phone: Start: 03-28-2024 C-reactive protein Manny en O'Uvaldo PA-C Work Phone: Start: 03-28-2024 Comprehensive metabo lic panel Sandi O'Uvaldo PA-C Work Phone: Start: 03-27-2024 Basic metabolic pane l calcium total Sandi O'Uvaldo PA-C Work Phone: Start: 03-27-2024 Sedimentation rate r bc automated Sandi O'Uvaldo PA-C Work Phone: Start: 03-27-2024 Basic metabolic pane l calcium total Comfort R Tyo ENGINE WATCHMAN[employer] Work Phone: Start: 03-27-2024 C-reactive protein Manny en O'Uvaldo PA-C Work Phone: Start: 03-26-2024 Basic metabolic pane l calcium total Sandi O'Uvaldo PA-C Work Phone: Start: 03-26-2024 C-reactive protein Manny en O'Uvaldo PA-C Work Phone: Start: 03-26-2024 Basic metabolic pane l calcium total Comfort R Tyo ENGINE WATCHMAN[employer]ER Work Phone: Start: 03-25-2024 End: 03-25-2024 TRANSFUSE RED BLOOD CELLS Comfort R Tyo A PRN-HAND PLUG SHAPER Work Phone: Start: 03-25-2024 PREPARE RBC Comfort R T yo ENGINE WATCHMAN-[employer]ER Work Phone: Start: 03-25-2024 Chloride nellyd Filippo Landeros MD Work Phone: Start: 03-25-2024 Radiologic exam ches t single view Clark Walters MD Work Phone: Start: 03-25-2024 Potassium serum plasma/whole blood Comfort R Tyo ENGINE WATCHMAN[employer]ER Work Phone: Start: 03-25-2024 PULSE OXIMETRY, CONTINUOUS Clark Walters MD Work Phone: Start: 03-25-2024 End: 03-25-2024 Chloride bld Elin Silvestre [email or web address] Work Phone: Start: 03-25-2024 Chloride bld Luis Rodríguez fag [email or web address] Work Phone: Start: 03-25-2024 End: 03-25-2024 TRANSFUSE RED BLOOD CELLS Siham Spectafy Work Phone: Start: 03-25-2024 Blood count complete automated [employer] Work Phone: Start: 03-25-2024 Chloride bld Siham Chaf fag [email or web address] Work Phone: Start: 03-25-2024 Culture tubercle/oth acid-fast bacilli any isol Filippo Mark MD Work Phone: Start: 03-25-2024 Blood typing serolog ic rh (d) Siapryl [employer] Work Phone: Start: 03-25-2024 End: 03-25-2024 Calcium ionized Siham [email or web address] Work Phone: Start: 03-25-2024 PREPARE RBC Siham Chaf fag [email or web address] Work Phone: Start: 03-25-2024 Urine test visual color cmprsn meths Laura HAMMER-C Work Phone: Start: 03-25-2024 End: 03-25-2024 Free skin flap w/microvascular anastomosis Filippo Mark MD Work Phone: Start: 03-18-2024 Basic metabolic pane l calcium total Cedrick Mendez MD Work Phone: Start: 03-17-2024 Basic metabolic pane l calcium total Cedrick Mendez MD Work Phone: Start: 03-16-2024 Basic metabolic pane l calcium total Cedrick Mendez MD Work Phone: Start: 03-15-2024 Insertion picc w/rs& i 5 yr/> Wayne Escudero MD Work Phone: Start: 03-15-2024 Cul prsmptv pthgnc o rganism scrn w/colony estimj Wayne Escudero MD Work Phone: Start: 03-15-2024 Basic metabolic pane l calcium total Cedrick Mendez MD Work Phone: Start: 03-14-2024 Cta abdl aorta&bi il iofem w/contrast&postp Rasta Quiroga MD Work Phone: Start: 03-14-2024 Basic metabolic pane l calcium total Cedrick Mendez MD Work Phone: Start: 03-13-2024 Basic metabolic pane l calcium total Cedrick Mendez MD Work Phone: Start: 03-13-2024 Drug screen quantita tive vancomycin Cristino H Rolando PharmD Work Phone: Start: 03-12-2024 PULSE OXIMETRY, CONTINUOUS Clark Walters MD Work Phone: Start: 03-12-2024 XR tomography Unspec ified body region Ronal Noe MD Work Phone: Start: 03-12-2024 End: 03-12-2024 Culture fngi mold/yeast prsmptv oth xcpt blood Cruz Goodman MD Work Phone: Start: 03-12-2024 End: 03-12-2024 Arthrodesis knee any technique Cruz Goodman MD Work Phone: Start: 03-12-2024 End: 03-12-2024 Debridement bone muscle &/fascia 20 sq cm/< Cruz Goodman MD Work Phone: Start: 03-12-2024 End: 03-12-2024 Removal implant deep Cruz Goodman MD Work Phone: Start: 03-12-2024 Ct lower extremity w /o contrast material Ronal Noe MD Work Phone: Start: 03-12-2024 Ecg routine ecg w/le ast 12 lds trcg only w/o i&r Cedrick Mendez MD Work Phone: Start: 03-11-2024 Radiologic exam ches t single view Ronal Noe MD Work Phone: Start: 03-11-2024 Basic metabolic pane l calcium total Ronal Noe MD Work Phone: Start: 03-11-2024 C-reactive protein Luz Noe MD Work Phone: Start: 03-11-2024 Culture bacterial bl ood aerobic w/id isolates Ronal Noe MD Work Phone: Start: 01-15-2024 Drug screen quantita tive vancomycin Cruz Goodman MD Work Phone: Start: 01-15-2024 Renal function panel Pattie carolyn Goodman MD Work Phone: Start: 01-12-2024 Drug screen quantita tive vancomycin Cruz Goodman MD Work Phone: Start: 01-11-2024 Insertion picc w/rs& i 5 yr/> Daniele Barntet MD Work Phone: Start: 01-11-2024 Cul prsmptv pthgnc o rganism scrn w/colony estimj Daniele Barnett MD Work Phone: Start: 01-10-2024 Ecg routine ecg w/le ast 12 lds trcg only w/o i&r Daniele Barnett MD Work Phone: Start: 01-10-2024 Basic metabolic pane l calcium total Mack Sumner MD Work Phone: Start: 01-10-2024 Drug screen quantita tive vancomycin Karishma Bj Anny PharmD Work Phone: Start: 01-09-2024 Renal function panel Am y E Anny PharmD Work Phone: Start: 01-09-2024 XR tomography Unspec ified body region Cruz Goodman MD Work Phone: Start: 01-09-2024 End: 01-09-2024 Culture fngi mold/yeast prsmptv oth xcpt blood Cruz Goodman MD Work Phone: Start: 01-09-2024 VERAB/VERIFY SAMANTHA Myers MD Work Phone: Start: 01-09-2024 End: 01-09-2024 Insj non-biodegradable drug delivery implant Cruz Goodman MD Work Phone: Start: 01-09-2024 End: 01-09-2024 Partial excision bone tibia Cruz Henley ch, MD Work Phone: Start: 01-09-2024 End: 01-09-2024 Removal implant deep Cruz Goodman MD Work Phone: Start: 12-30-2023 Thyrotropin [Units/v olume] in Serum or Plasma Cruz Goodman MD Work Phone: Start: 12-17-2023 Echo tthrc r-t 2d w/wom-mode compl spec&colr d Bijan Elmore MD Work Phone: Start: 07-07-2023 CT HIP LEFT WO IV CONTRAST CRUZ GOODMAN Start: 06-12-2023 XR TIBIA FIBULA RIGH T 2 VIEWS CRUZ GOODMAN Start: 06-12-2023 XR KNEE RIGHT 1-2 VIEWS CRUZ GOODMAN Start: 06-12-2023 XR HIP LEFT WITH PEL VIS WHEN PERFORMED 2 OR 3 VIEWS CRUZ GOODMAN Start: 11-28-[address] Francisco Elmore Work Phone: Start: 11-28-2022 Investigation of transfusion reaction Dr. Francisco Elmore Work Phone: Start: 11-28-2022 Microbial culture, routine Dr. Francisco Elmore Work Phone: Start: 10-30-2022 MRI of joint of lowe r extremity Start: 10-30-2022 MRI of lower extremity Start: 04-17-2022 Cell count misc body fluids w/differential count Andre Cheek MD Work Phone: Start: 03-15-2022 Debridement subcutan eous tissue 20 sq cm/< Pacheco Boothe DO Work Phone: Start: 12-24-2021 Follow-up visit Follow-up FRANCISCO WARE Start: 10-10-2021 Special diagnostic procedures Cass Guzman MD Work Phone: Start: 09-17-2021 Adult depression scr eening assessment Bijan Elmore MD Work Phone: Start: 09-05-2021 Plain X-ray of tibia and fibula Dr. Francisco Elmore Work Phone: Start: 04-30-2021 COVID-19 Ever Marti MD Work Phone: Start: 04-26-2021 Iadna-dna/rna gi pth gn multiplex probe tq 12-25 Ever Marti MD Work Phone: Start: 04-26-2021 Inf agent det nuclei c acid clostridium amp probe Ever Marti MD Work Phone: Start: 04-19-2021 Cul prsmptv pthgnc o rganism scrn w/colony estimj Ever Marti MD Work Phone: Start: 04-19-2021 BASIC METABOLIC PANE L W/ REFLEX TO MG FOR LOW K Ever Marti MD Work Phone: Start: 04-19-2021 Blood count complete auto&auto difrntl wbc Charline Damon MD Work Phone: Start: 04-18-2021 Urnls dip stick/tabl et rgnt auto w/o microscopy Remy Nelson MD Work Phone: Start: 04-18-2021 Radiologic exam ches t single view Bell Scott MD Work Phone: Start: 04-17-2021 Basic metabolic pane l calcium total Remy Nelson MD Work Phone: Start: 04-17-2021 Hepatic function panel Remy Nelson MD Work Phone: Start: 12-29-2020 Radiologic exam ches t single view Remy Lei MD Work Phone: Start: 12-29-2020 Basic metabolic pane l calcium total Sara Drummond MD Work Phone: Start: 12-28-2020 Computed tomography of abdomen and pelvis with contrast Nicole Mitchell MD Work Phone: Start: 12-28-2020 Smr prim src gram/gi emsa stain bct fungi/cell Nicole Mitchell MD Work Phone: Start: 12-28-2020 Dup-scan xtr veins c omplete bilateral study Sara Drummond MD Work Phone: Start: 12-28-2020 Radiologic exam ches t single view Remy Lei MD Work Phone: Start: 12-28-2020 Basic metabolic pane l calcium total Sara Drummond MD Work Phone: Start: 12-27-2020 Microscopic examinat ion of blood, culture ELSIE JOSE Comment on above: Performed By: #### C /BLD ####[address] [id number] Start: 12-27-2020 Radiologic exam ches t single view Remy Lei MD Work Phone: Start: 12-27-2020 Basic metabolic pane l calcium total Sara Drummond MD Work Phone: Start: 12-27-2020 Manual Differential panel - Blood Sara Drummond MD Work Phone: Start: 12-26-2020 Radiologic exam abdo men 1 view Alonzo Solorio MD Work Phone: Start: 12-26-2020 OPERATIVE REPORT 3m Sca nning Start: 12-26-2020 Procalcitonin (pct) Xiomy Drummond MD Work Phone: Start: 12-26-2020 Radiologic exam ches t single view Remy Lei MD Work Phone: Start: 12-25-2020 Basic metabolic pane l calcium total Sara Drummond MD Work Phone: Start: 12-25-2020 Manual Differential panel - Blood Unknown Provider Result Start: 12-25-2020 Dup-scan xtr veins c omplete bilateral study Sara Drummond MD Work Phone: Start: 12-25-2020 End: 12-25-2020 Basic metabolic panel calcium total Sara Drummond MD Work Phone: Start: 12-25-2020 BLOOD GAS, ARTERIAL Tyl er Kathy PA-C Work Phone: Start: 12-24-2020 RADIOLOGY REPORT Amy Tavares MD Work Phone: Start: 12-24-2020 End: 12-24-2020 Smr prim src gram/giemsa stain bct fungi/cell Remy Lei MD Work Phone: Start: 12-24-2020 Urnls dip stick/tabl et rgnt auto w/o microscopy Dwayne Hameed MD Work Phone: Start: 12-24-2020 CULTURE, BLOOD 1 Dwayne Hameed MD Work Phone: Start: 12-24-2020 Procalcitonin (pct) Xiomy Drummond MD Work Phone: Start: 12-24-2020 Radiologic exam ches t single view Remy Lei MD Work Phone: Start: 12-24-2020 End: 12-24-2020 Basic metabolic panel calcium total Sara Drummond MD Work Phone: Start: 12-24-2020 BLOOD GAS, ARTERIAL Tyl er Kathy PA-C Work Phone: Start: 12-23-2020 Radiologic exam abdo men 1 view Eric Sneed MD Work Phone: Start: 12-23-2020 Radiologic exam ches t single view Eric Sneed MD Work Phone: Start: 12-23-2020 Blood count hemoglobin Dwayne Hameed MD Work Phone: Start: 12-23-2020 End: 12-23-2020 Transfusion of packed red blood cells Stu Daley DO Work Phone: Start: 12-23-2020 End: 12-23-2020 Transfusion of packed red blood cells Stu Daley DO Work Phone: Start: 12-23-2020 Basic metabolic pane l calcium total Dwayne Hameed MD Work Phone: Start: 12-23-2020 BLOOD GAS, ARTERIAL Tyl er Kathy PA-C Work Phone: Start: 12-22-2020 Radiologic examinati on tibia & fibula 2 views James Llamas MD Work Phone: Start: 12-22-2020 BASIC METABOLIC PANE L W/ REFLEX TO MG FOR LOW K Remy Lei MD Work Phone: Start: 12-22-2020 BLOOD GAS, ARTERIAL Logan Lei MD Work Phone: Start: 12-22-2020 End: 12-22-2020 Calcium ionized Remy Lei MD Work Phone: Start: 12-22-2020 Gonadotropin chorion ic qualitative Faustino Kathy PA-C Work Phone: Start: 12-22-2020 Antibody screen Adalberto Mcqueen MD Work Phone: Start: 12-22-2020 Ct head/brain w/o co ntrast material Remy Lei MD Work Phone: Start: 12-22-2020 Basic metabolic pane l calcium total Sara Drummond MD Work Phone: Start: 12-22-2020 BLOOD GAS, ARTERIAL Tyl er Kathy PA-C Work Phone: Start: 12-22-2020 Blood typing serologic abo Cass Brooks MD Work Phone: Start: 12-21-2020 Blood count complete auto&auto difrntl wbc Remy Lei MD Work Phone: Start: 12-21-2020 Radiologic exam ches t single view Kirston Call ENGINE WATCHMAN - [employer]ER Work Phone: Start: 12-21-2020 Radiologic exam ches t single view Remy Lei MD Work Phone: Start: 12-21-2020 Basic metabolic pane l calcium total Sara Drummond MD Work Phone: Start: 12-21-2020 BLOOD GAS, ARTERIAL Tyl er Kathy PA-C Work Phone: Start: 12-20-2020 End: 12-21-2020 Transfusion of packed red blood cells Remy Lei MD Work Phone: Start: 12-20-2020 End: 12-20-2020 Transfusion of packed red blood cells Remy Lei MD Work Phone: Start: 12-20-2020 Radex forearm 2 views T yler Kathy PA-C Work Phone: Start: 12-20-2020 BLOOD GAS, ARTERIAL Logan Lei MD Work Phone: Start: 12-20-2020 Blood count complete auto&auto difrntl wbc Adalberto Mcqueen MD Work Phone: Start: 12-20-2020 End: 12-20-2020 Transfusion of packed red blood cells Senia Mayo MD Work Phone: Start: 12-20-2020 Calcium ionized Remy Lei MD Work Phone: Start: 12-20-2020 Radiologic exam ches t single view Remy Lei MD Work Phone: Start: 12-20-2020 End: 12-20-2020 Basic metabolic panel calcium total Sara Drummond MD Work Phone: Start: 12-20-2020 BLOOD GAS, ARTERIAL Tyl leti HAMMER-C Work Phone: Start: 12-19-2020 Blood count complete auto&auto difrntl wbc Remy Lei MD Work Phone: Start: 12-19-2020 Ct upper extremity w /o contrast material James Llamas MD Work Phone: Start: 12-19-2020 Blood count complete auto&auto difrntl wbc Remy Lei MD Work Phone: Start: 12-19-2020 Manual Differential panel - Blood Remy Lei MD Work Phone: Start: 12-19-2020 Radiologic exam ches t single view Remy Lei MD Work Phone: Start: 12-19-2020 Blood count complete auto&auto difrntl wbc Remy Lei MD Work Phone: Start: 12-19-2020 LAB SCANNED REPORT 3m S tre Start: 12-19-2020 Radex shoulder compl ete minimum 2 views James Llamas MD Work Phone: Start: 12-19-2020 Radiologic exam ches t single view Remy Lei MD Work Phone: Start: 12-19-2020 Drug screen class list a Arthur Parkinson MD Work Phone: Start: 12-19-2020 BLOOD GAS, ARTERIAL Ethel Parkinson MD Work Phone: Start: 12-19-2020 Basic metabolic pane l calcium total Sara Drummond MD Work Phone: Start: 12-19-2020 End: 12-19-2020 Radex wrist 2 views Thais Clemens MD Work Phone: Start: 12-19-2020 Ct head/brain w/o co ntrast material Remy Lei MD Work Phone: Start: 12-19-2020 Ct lower extremity w /o contrast material Thais Clemens MD Work Phone: Start: 12-19-2020 Ct pelvis w/o contra st material Britt Haq MD Work Phone: Start: 12-19-2020 End: 12-19-2020 TRANSFUSE CRYOPRECIPITATE Arthur Parkinson MD Work Phone: Start: 12-18-2020 Assay of lactate Andrew Mcqueen MD Work Phone: Start: 12-18-2020 BLOOD GAS, ARTERIAL Tawanda sonal Mcqueen MD Work Phone: Start: 12-18-2020 TRANSCRANIAL DOPPLER COMPLETE Thais Clemens MD Work Phone: Start: 12-18-2020 Radex humerus minimu m 2 views Britt Haq MD Work Phone: Start: 12-18-2020 X-ray exam of thigh Cornel monse Haq MD Work Phone: Start: 12-18-2020 XR ANKLE STANDARD BILATERAL Britt Haq MD Work Phone: Start: 12-18-2020 XR ELBOW STANDARD BILATERAL Britt Haq MD Work Phone: Start: 12-18-2020 XR HAND STANDARD BILATERAL Britt Haq MD Work Phone: Start: 12-18-2020 XR RADIUS ULNA STAND IRMA BILATERAL Britt Haq MD Work Phone: Start: 12-18-2020 RESPIRATORY PANEL, MOLECULAR, WITH COVID-19 Remy Lei MD Work Phone: Start: 12-18-2020 EXTEM ASSAY Remy Vale MD Work Phone: Start: 12-18-2020 FIBTEM ASSAY Remy Vale MD Work Phone: Start: 12-18-2020 BASIC METABOLIC PANE L W/ REFLEX TO MG FOR LOW K Remy Lei MD Work Phone: Start: 12-18-2020 BLOOD GAS, ARTERIAL Logan julissa Lei MD Work Phone: Start: 12-18-2020 Comprehensive metabo lic panel Stu Daley DO Work Phone: Start: 12-18-2020 GENERIC LABORATORY CHARGE Stu Daley DO Work Phone: Start: 12-18-2020 Hepatic function panel Remy Lei MD Work Phone: Start: 12-18-2020 Speech and language therapy regime Remy Lei MD Work Phone: Start: 12-18-2020 Ct angiography head w/contrast/noncontrast Yusef Norris MD Work Phone: Start: 12-18-2020 Ct cervical spine w/ o contrast material Yusef Norris MD Work Phone: Start: 12-18-2020 Ct thorax w/contrast material Yusef Norris MD Work Phone: Start: 12-18-2020 APTEM ASSAY Adalberto Mcqueen MD Work Phone: Start: 12-18-2020 EXTEM ASSAY Adalberto Mcqueen MD Work Phone: Start: 12-18-2020 FIBTEM ASSAY Adalberto Mcqueen MD Work Phone: Start: 12-18-2020 Level iv surg pathol ogy gross&microscopic exam Adalberto Mcqueen MD Work Phone: Start: 12-18-2020 BLOOD GAS, ARTERIAL Tawanda sonal Mcqueen MD Work Phone: Start: 12-18-2020 Radiologic exam ches t single view Adalberto Mcqueen MD Work Phone: Start: 12-18-2020 Radiologic examinati on pelvis 1/2 views Adalberto Mcqueen MD Work Phone: Start: 12-18-2020 APTEM ASSAY Adalberto Mcqueen MD Work Phone: Start: 12-18-2020 EXTEM ASSAY Adalberto Mcqueen MD Work Phone: Start: 12-18-2020 FIBTEM ASSAY Adalberto Mcqueen MD Work Phone: Start: 12-18-2020 Blood typing serologic abo Karishma Mcqueen Start: 12-18-2020 PREPARE CRYOPRECIPIT ATE (CROSSMATCH) Arthur Parkinson MD Work Phone: Start: 12-18-2020 PREPARE FRESH FROZEN PLASMA Unknown Provider Result Start: 12-18-2020 PREPARE PLATELETS Unkno wn Provider Result Start: 12-18-2020 Assay of ethanol Karishma Dubois keronbj Start: 12-18-2020 End: 12-18-2020 Basic metabolic panel calcium total Karishma Mcqueen Start: 12-18-2020 End: 12-18-2020 GENERIC LABORATORY CHARGE Karishma Mcqueen Start: 10-28-2019 Lipid 1996 panel - S nubia or Plasma Bijan Elmore MD Work Phone: Start: 10-06-2019 Adult depression scr eening assessment Bijan Elmore MD Work Phone: Start: 01-10-2019 Blood count hemoglobin Linda Urbano Work Phone: Start: 01-10-2019 Blood count complete auto&auto difrntl wbc Lily Quezada Work Phone: Start: 01-10-2019 Comprehensive metabo lic panel Lily Quezada Work Phone: Start: 01-09-2019 Blood count complete auto&auto difrntl wbc Lily Quezada Work Phone: Start: 01-09-2019 Comprehensive metabo lic panel Lily Quezada Work Phone: Start: 01-08-2019 Blood count complete auto&auto difrntl wbc Lily Quezada Work Phone: Start: 01-08-2019 Comprehensive metabo lic panel Lily Quezada Work Phone: Start: 01-07-2019 OPERATIVE REPORT 3m Sca nning Start: 01-07-2019 Acute hepatitis panel M unslillie Molilliamnuddin Work Phone: Start: 01-07-2019 Blood count complete auto&auto difrntl wbc Lily Quezada Work Phone: Start: 01-07-2019 C-reactive protein Muns lillie Renensun Work Phone: Start: 01-07-2019 Comprehensive metabo lic panel Lily Quezada Work Phone: Start: 01-07-2019 Drug screen quantita tive vancomycin Nisreen Edagrdnudlulu Work Phone: Start: 01-07-2019 MANUAL DIFFERENTIAL Carmen archer Eugeneruth Work Phone: Start: 01-07-2019 Procalcitonin (pct) Rogelio sarah Masters Work Phone: Start: 01-06-2019 BASIC METABOLIC PANE L W/ REFLEX TO MG FOR LOW K Dimitry Barba Work Phone: Start: 01-06-2019 Blood count complete auto&auto difrntl wbc Lily Quezada Work Phone: Start: 01-05-2019 Cul bact xcpt urine blood/stool aerobic isol Dimitry Barba Work Phone: Start: 01-05-2019 Culture bacterial an y source anaerobic iso&id Dimitry Barba Work Phone: Start: 01-05-2019 Culture bacterial an y source anaerobic iso&id Dimitry Barba Work Phone: Start: 01-05-2019 Culture bacterial bl ood aerobic w/id isolates Dimitry Barba Work Phone: Start: 01-05-2019 ADD ON LAB TEST Wale Cooper Work Phone: Start: 01-05-2019 Culture bacterial bl ood aerobic w/id isolates Wale Cooper Work Phone: Start: 01-05-2019 Assay of lactate Wale Cooper Work Phone: Start: 01-05-2019 Blood count complete auto&auto difrntl wbc Wale Cooper Work Phone: Start: 01-05-2019 C-reactive protein Charly Cooper Work Phone: Start: 01-05-2019 Comprehensive metabo lic panel Wale Cooper Work Phone: Start: 01-05-2019 Culture bacterial bl ood aerobic w/id isolates Wale Cooper Work Phone: Start: 01-05-2019 Gonadotropin chorion ic qualitative Wale Cooper Work Phone: Start: 01-05-2019 Ct upper extremity w/contrast material Wale Cooper Work Phone: Plan of Treatment Date Care Activity Detail Author Start: 05-13-2027 Diabetes Screening Diabetes Screening [facility] Start: 04-01-2027 Diabetes Screening Diabetes Screening [facility] Start: 03-18-2027 Diabetes Screening Diabetes Screening [facility] Start: 01-09-2027 Diabetes Screening Diabetes Screening [facility] Start: 12-29-2026 Diabetes Screening Diabetes Screening [facility] Start: 12-29-2024 Thyroid stimulating hormone measurement [facility] Start: 11-17-2024 Annual PCP Team Chronic Disease Visit Annual PCP Team Chronic Disease Visit [facility] Start: 10-27-2024 Lipid 1996 panel - Serum or Plasma Lipid Screening [facility] Start: 10-27-2024 Lipid panel Lipid Screening [facility] Start: 10-27-2024 LIPID SCREEN LIPID SCREEN [facility] Start: 10-18-2024 Influenza vaccination Influenza Vaccine (Season Ended) [facility] Start: 06-18-2024 End: 06-18-2024 ambulatory [facility] Start: 05-31-2024 End: 05-31-2024 ambulatory [facility] Nubia Start: 05-17-2024 End: 05-17-2024 Patient encounter procedure 05/17/2024 2:20 PM EDT Office Visit Family Practice [address] [place] [address] Bijan Elmore MD [address] [place], [place] [id number] follow up [facility] Comment on above: follow up Start: 05-14-2024 ambulatory [facility] [place] [address] [place] 6 Start: 05-04-2024 End: 08-03-2024 Basic metabolic 2000 panel - Serum or Plasma BASIC METABOLIC PANEL Lab Routine Essential hypertension Expected: 05/04/2024, Expires: 08/03/2024 [facility] Work Phone: Comment on above: Expected: 05/04/2024, Expires: Start: 05-04-2024 End: 08-03-2024 Hemoglobin A1c in Blood HEMOGLOBIN A1C Lab Routine Medication management Expected: 05/04/2024, Expires: 08/03/2024 [facility] Comment on above: Expected: 05/04/2024, Expires: Start: 04-27-2024 End: 04-27-2024 Telemedicine consultation with patient 04/27/2024 11:20 AM EDT Telemedicine [facility] [address] [place] [phone] [place] [address] [place] [address] [facility] Start: 04-26-2024 End: 04-26-2024 Patient encounter procedure 04/26/2024 11:40 AM EDT Office Visit [facility] [address]th [place] [phone] [place] [address] [address] Department [place] [address] [facility] Start: 04-25-2024 End: 04-25-2024 [facility] Start: 04-25-2024 Microscopic observation [Identifier] in Unspecified specimen by Gram stain [facility] Start: 04-25-2024 Wound Culture Wound Culture [facility] Start: 04-19-2024 Diabetes Screening Diabetes Screening [facility] Start: 04-16-2024 End: 04-16-2024 Follow-up encounter 04/16/2024 10:40 AM EST Follow-Up [facility] [address] [place] [address] [place] [address] [place] [address] [facility] Start: 04-12-2024 End: 04-12-2024 Patient encounter procedure 04/12/2024 1:00 PM EST Office Visit [facility] [address] [facility] [address] [place] [address] [place] [address] [address] Department of Surgery-[place] [address] [facility] Start: 04-11-2024 Annual PCP Team Chronic Disease Visit Annual PCP Team Chronic Disease Visit [facility] Start: 04-06-2024 End: 04-06-2024 Patient encounter procedure 04/06/2024 10:00 AM EST Office Visit [facility] Orthopedic Surgery [address] [place] [address] Di Jang PA-C [address] Department [place] [address] [facility] Start: 04-05-2024 End: 04-05-2024 Patient encounter procedure 04/05/2024 9:45 AM EST Office Visit [facility] [address] [facility] [address] [place] [phone] [place] [address] Department of Surgery-[place] [address] [facility] Start: 02-20-2024 End: 02-20-2024 Follow-up encounter 02/20/2024 10:00 AM EST Follow-Up [facility] [address] [facility] [address] [place] [phone] [place] [address] [place] [address] [facility] Start: 02-11-2024 End: 05-12-2024 Thyrotropin [Units/volume] in Serum or Plasma THYROID STIMULATING HORMONE Lab Routine Acquired hypothyroidism Expected: 02/11/2024, Expires: 05/12/2024 [facility] Work Phone: Comment on above: Expected: 02/11/2024, Expires: Start: 01-26-2024 End: 01-26-2024 Patient encounter procedure 01/26/2024 2:20 PM EST Office Visit [facility] [address] [address] Di Jang PA-C [address] Department [place] [address] [facility] Start: 01-26-2024 End: 01-26-2024 Patient encounter procedure 01/26/2024 11:40 AM EST Office Visit [facility] [address] [address] Di Jang PA-C [address] Department [place] [address] [facility] Start: 01-09-2024 End: 01-09-2024 Admission to same day surgery center [facility] [place] Comment on above: Revision Arthroplasty Partial Hip [29783 (CPT )] Excision Bone Tibia/ Fibula [63635 (CPT )] Start: 01-09-2024 End: 01-09-2024 Conv prev hip tot hip arthrp w/wo agrft/algrft Revision Arthroplasty Partial Hip Traumatic arthritis of left hip 01/09/2024 6:50 AM EST [facility] Start: 01-09-2024 End: 01-09-2024 Insj non-biodegradable drug delivery implant INSERTION,DRUG DELIVERY IMPLANT,NON-BIODEGRADAB LE Traumatic arthritis of left hip 01/09/2024 6:50 AM EST [facility] Start: 01-09-2024 End: 01-09-2024 Partial excision bone tibia Excision Bone Tibia/Fibula Traumatic arthritis of left hip 01/09/2024 6:50 AM EST [facility] Start: 01-09-2024 End: 01-09-2024 Removal implant deep Removal Intramedullary Nail Tibia Traumatic arthritis of left hip 01/09/2024 6:50 AM EST [facility] [place] Start: 01-09-2024 Subsequent hospital visit by physician 01/09/2024 5:20 AM EST Hospital [place] [address] [place] [address] [place] [address] [address] Department [place] [address] [facility] [place] Start: 12-27-2023 Annual PCP Team Chronic Disease Visit Annual PCP Team Chronic Disease Visit [facility] Start: 12-25-2023 End: 12-25-2023 ambulatory 12/25/2023 2:45 PM EST Results Only [facility] Draw Station [address] [place] [address] Mp [facility] Draw Station Start: 12-23-2023 End: 12-23-2023 Admission to establishment 12/23/2023 2:30 PM EST Pre-Admission Testing [facility] [address] [address] [facility] Start: 12-19-2023 End: 12-19-2023 ambulatory 12/19/2023 3:00 PM EDT Results Only Mp [facility] Draw Station [address] [address] Mp [facility] Draw Station Start: 12-19-2023 End: 03-19-2024 CBC panel - Blood by Automated count COMPLETE BLOOD COUNT Lab Routine Traumatic arthritis of left hip Essential hypertension Expected: 12/19/2023, Expires: 03/19/2024 [facility] Comment on above: Expected: 12/19/2023, Expires: Start: 12-19-2023 End: 03-19-2024 Comprehensive metabolic 2000 panel - Serum or Plasma COMPREHENSIVE METABOLIC PANEL Lab Routine Essential hypertension Chronic anxiety Expected: 12/19/2023, Expires: 03/19/2024 [facility] Work Phone: Comment on above: Expected: 12/19/2023, Expires: Start: 12-19-2023 End: 03-19-2024 Hepatitis C virus RNA [Units/volume] (viral load) in Serum or Plasma by CAPRICE with probe detection HEPATITIS C RNA QUANTIFICATION BY PCR, PLASMA/SERUM Lab Routine Chronic hepatitis C without hepatic coma (HCC) Expected: 12/19/2023, Expires: 03/19/2024 [facility] Comment on above: Expected: 12/19/2023, Expires: Start: 12-19-2023 End: 03-19-2024 Lipid 1996 panel - Serum or Plasma LIPID PANEL BASIC Lab Routine Essential hypertension Expected: 12/19/2023, Expires: 03/19/2024 [facility] Comment on above: Expected: 12/19/2023, Expires: Start: 12-19-2023 End: 03-19-2024 Thyrotropin [Units/volume] in Serum or Plasma THYROID STIMULATING HORMONE Lab Routine Acquired hypothyroidism Expected: 12/19/2023, Expires: 03/19/2024 [facility] Comment on above: Expected: 12/19/2023, Expires: Start: 12-18-2023 End: 12-18-2023 Clinical Support 12/18/2023 10:00 AM EDT Clinical Support [facility] [address] [place] [address] [facility] Start: 12-17-2023 End: 12-17-2023 Patient encounter procedure 12/17/2023 2:00 PM EDT Appointment [facility]iology Lab [address] [place] [address] Essential hypertension [I10]; Newly recognized heart murmur [R01.1]rescheduled with the patient Cardiology Lab Comment on above: Essential hypertension [I10]; Newly leno gnized heart murmur [R01.1]rescheduled with the patient Start: 12-15-2023 End: 12-15-2023 Patient encounter procedure 12/15/2023 2:15 PM EDT Appointment [facility] [address] [place] [phone] [facility] Start: 12-08-2023 End: 12-08-2023 Patient encounter procedure 12/08/2023 1:20 PM EDT Appointment Cat Scan [address] [place] [address] CT TIBA Fibua RT WO IVCON Cat Scan Comment on above: CT TIBA Fibua RT WO IVCON Start: 12-03-2023 End: 12-03-2023 Patient encounter procedure 12/03/2023 2:00 PM EDT Appointment Cardiology Lab [address] [place] [address] Essential hypertension [I10]; Newly recognized heart murmur [R01.1] Cardiology Lab Comment on above: Essential hypertension [I10]; Newly leno gnized heart murmur [R01.1] Start: 12-01-2023 End: 11-30-2024 C reactive protein [Mass/volume] in Serum or Plasma [facility] Work Phone: Comment on above: Expected: 12/01/2023 (Approximate), Expi res: 11/30/2024 Start: 12-01-2023 End: 11-30-2024 CT Lower leg - right WO contrast CT tibia fibula right wo IV contrast Imaging Routine Tibial plateau fracture, right, sequela Expected: 12/01/2023 (Approximate), Expires: 11/30/2024 [facility] Work Phone: Comment on above: Expected: 12/01/2023 (Approximate), Expi res: 11/30/2024 Start: 12-01-2023 End: 11-30-2024 Erythrocyte sedimentation rate [facility] Work Phone: Comment on above: Expected: 12/01/2023 (Approximate), Expi res: 11/30/2024 Start: 12-01-2023 End: 12-01-2023 Patient encounter procedure 12/01/2023 1:20 PM EDT Office Visit [facility] [address] [facility] 5th [place] [address] [place] [address] [address] Department [place] [address] [facility] Start: 11-18-2023 End: 11-18-2023 Patient encounter procedure 11/18/2023 10:40 AM EDT Office Visit Family Practice [address] [place] [address] [address] [place], [place] [phone] Bijan Elmore MD [address] [place] [address] [place], [place] [phone] med refill Family Practice Comment on above: med refill Start: 10-19-2023 Covid-19 Vaccine ( season) Covid-19 Vaccine () [facility] Start: 10-19-2023 Covid-19 Vaccine (1 - 2024-25 season) Covid-19 Vaccine ( season) [facility] Start: 10-19-2023 Influenza vaccination [facility] Start: 10-19-2023 [facility] Start: 09-27-2023 ANNUAL PCP TEAM CHRONIC DISEASE VISIT ANNUAL PCP TEAM CHRONIC DISEASE VISIT [facility] Start: 08-25-2023 End: 08-24-2024 CT Knee - right WO contrast CT knee right wo IV contrast Imaging STAT Traumatic arthritis of right knee Expected: 08/25/2023, Expires: 08/24/2024 [facility] Work Phone: Comment on above: Expected: 08/25/2023, Expires: Start: 08-25-2023 End: 08-24-2024 CT Lower leg - right WO contrast CT tibia fibula right wo IV contrast Imaging STAT Pain of right tibia Expected: 08/25/2023, Expires: 08/24/2024 [facility] Work Phone: Comment on above: Expected: 08/25/2023, Expires: Start: 08-25-2023 End: 08-10-2024 XR Knee - right 1 or 2 Views [facility] Service Area Work Phone: Comment on above: Expected: 08/25/2023, Expires: 5 Once for 1 Occurrenc es starting 08/25/2023 until 08/25/2023 Start: 08-25-2023 End: 08-10-2024 XR Tibia and Fibula - right 2 Views [facility] Work Phone: Comment on above: Expected: 08/25/2023, Expires: 5 Once for 1 Occurrenc es starting 08/25/2023 until 08/25/2023 Start: 08-11-2023 End: 08-11-2023 Patient encounter procedure 08/11/2023 1:00 PM EDT Office Visit [facility] [address] [facility] 5th [place] [address] [place] [address] [address] Department [place] [address] [facility] Start: 06-30-2023 End: 06-30-2023 Patient encounter procedure 06/30/2023 11:00 AM EDT Office Visit [facility] [address] [facility] 5th [place] [address] [place] [address] [address] Department of Orthopedics [place] [phone] [facility] Start: 06-18-2023 COVID-19 Vaccine (#1) COVID-19 Vaccine (#1) [employer] Comment on above: Postponed from 1972 (Patient Refus ed) Start: 06-18-2023 DTaP/Tdap/Td Vaccines (1 - Tdap) DTaP/Tdap/Td Vaccines (1 - Tdap) [employer] Comment on above: Postponed from 12/19/2020 (Patient Refus ed) Start: 06-18-2023 Pneumococcal Vaccine: Pediatrics (0 to 5 Years) and At-Risk Patients (6 to 64 Years) (2 - PPSV23 if available, else PCV20) Pneumococcal Vaccine: Pediatrics (0 to 5 Years) and At-Risk Patients (6 to 64 Years) (2 - PPSV23 if available, else PCV20) [facility] [employer] Comment on above: Postponed from 01/31/2022 (Patient Refus ed) Start: 06-18-2023 Zoster Vaccines (1 of 2) Zoster Vaccines (1 of 2) [facility] [employer] Comment on above: Postponed from 02/28/2022 (Patient Refus ed) Start: 06-12-2023 End: 06-11-2024 CT Hip - left WO contrast CT hip left wo IV contrast Imaging Routine Hip pain, chronic, left Expected: 06/12/2023, Expires: 06/11/2024 [facility] Work Phone: Comment on above: Expected: 06/12/2023, Expires: Start: 06-12-2023 End: 06-09-2024 XR Hip Views [facility] Service Area Work Phone: Comment on above: Expected: 06/12/2023, Expires: 5 Once for 1 Occurrenc es starting 06/12/2023 until 06/12/2023 Start: 06-12-2023 End: 06-11-2024 XR Knee - right 1 or 2 Views [facility] Work Phone: Comment on above: Expected: 06/12/2023, Expires: 5 Once for 1 Occurrenc es starting 06/12/2023 until 06/12/2023 Start: 06-12-2023 End: 06-11-2024 XR Tibia and Fibula - right 2 Views [facility] Work Phone: Comment on above: Expected: 06/12/2023, Expires: 5 Once for 1 Occurrenc es starting 06/12/2023 until 06/12/2023 Start: 04-11-2023 DIABETES SCREEN DIABETES SCREEN [facility] Start: 04-11-2023 Diabetes Screening Diabetes Screening [facility] Start: 03-26-2023 End: 06-25-2023 CBC panel - Blood by Automated count CBC Lab Routine Seizures (HCC) Expected: 03/26/2023, Expires: 06/25/2023 [facility] Work Phone: Comment on above: Expected: 03/26/2023, Expires: Start: 03-26-2023 End: 06-25-2023 Comprehensive metabolic 2000 panel - Serum or Plasma COMP METABOLIC PANEL Lab Routine Hypertension, essential Expected: 03/26/2023, Expires: 06/25/2023 [facility] Work Phone: Comment on above: Expected: 03/26/2023, Expires: Start: 02-17-2023 Behavioral Health Screening Behavioral Health Screening [facility] Start: 02-17-2023 Depression Assessment Depression Assessment [facility] Start: 12-18-2022 Depresssion Monitoring Depresssion Monitoring [facility] Start: 11-27-2022 End: 01-27-2023 CBC panel - Blood by Automated count CBC Lab Routine Hypertension, essential Hypothyroidism, acquired Chronic anxiety Expected: 11/27/2022, Expires: 01/27/2023 [facility] Work Phone: Comment on above: Expected: 11/27/2022, Expires: Start: 11-27-2022 End: 01-27-2023 Comprehensive metabolic 2000 panel - Serum or Plasma COMP METABOLIC PANEL Lab Routine Hypertension, essential Expected: 11/27/2022, Expires: 01/27/2023 [facility] Work Phone: Comment on above: Expected: 11/27/2022, Expires: Start: 11-27-2022 End: 01-27-2023 Lipid 1996 panel - Serum or Plasma LIPID PANEL BASIC Lab Routine Screening for lipid disorders Expected: 11/27/2022, Expires: 01/27/2023 [facility] Work Phone: Comment on above: Expected: 11/27/2022, Expires: 3 Start: 11-27-2022 End: 01-27-2023 Thyrotropin [Units/volume] in Serum or Plasma TSH BLD Lab Routine Hypothyroidism, acquired Expected: 11/27/2022, Expires: 01/27/2023 [facility] Work Phone: Comment on above: Expected: 11/27/2022, Expires: 3 Start: 10-18-2022 Covid-19 Vaccine () Covid-19 Vaccine () [facility] Start: 10-18-2022 Influenza vaccination [facility] Start: 09-26-2022 End: 11-26-2022 CBC panel - Blood by Automated count CBC Lab Routine Chronic left hip pain Chronic ulcer of right leg, 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) Expected: 09/26/2022, Expires: 11/26/2022 [facility] Work Phone: Comment on above: Expected: 09/26/2022, Expires: Start: 09-26-2022 End: 11-26-2022 Comprehensive metabolic 2000 panel - Serum or Plasma COMP METABOLIC PANEL Lab Routine Seizures (HCC) Hypertension, essential Expected: 09/26/2022, Expires: 11/26/2022 [facility] Work Phone: Comment on above: Expected: 09/26/2022, Expires: 3 Start: 09-26-2022 End: 11-26-2022 Lipid 1996 panel - Serum or Plasma LIPID PANEL BASIC Lab Routine Screening for lipid disorders Expected: 09/26/2022, Expires: 11/26/2022 [facility] Work Phone: Comment on above: Expected: 09/26/2022, Expires: 3 Start: 09-26-2022 End: 11-26-2022 Thyrotropin [Units/volume] in Serum or Plasma TSH BLD Lab Routine Hypothyroidism, acquired Expected: 09/26/2022, Expires: 11/26/2022 [facility] Work Phone: Comment on above: Expected: 09/26/2022, Expires: 3 Start: 09-17-2022 Adult depression screening assessment DEPRESSION SCREENING [facility] Start: 09-17-2022 ANNUAL PCP TEAM CHRONIC DISEASE VISIT ANNUAL PCP TEAM CHRONIC DISEASE VISIT [facility] Start: 09-17-2022 BP CONTROLLED (<130/80) BP CONTROLLED (<130/80) [facility] Start: 07-12-2022 ANNUAL PCP TEAM CHRONIC DISEASE VISIT ANNUAL PCP TEAM CHRONIC DISEASE VISIT [facility] Start: 07-03-2022 End: 07-03-2022 Patient encounter procedure 07/03/2022 Office Visit Family Medicine Isiah Quan MD [address] [facility], [place] [address] [facility] Family Medicine Start: 06-26-2022 ANNUAL PCP TEAM CHRONIC DISEASE VISIT ANNUAL PCP TEAM CHRONIC DISEASE VISIT [facility] Start: 06-26-2022 BP CONTROLLED (<130/80) BP CONTROLLED (<130/80) [facility] Start: 04-17-2022 End: 04-17-2022 Patient encounter procedure 04/17/2022 Office Visit Orthopedic Surgery Cass Guzman MD [address] [facility] [address] [place] [address] [facility] Start: 04-09-2022 End: 04-09-2023 XR Hip - left 3 Views XR hip left 2 or 3 views Imaging Routine Left hip pain Expected: 04/09/2022, Expires: 04/09/2023 [facility]: Comment on above: Expected: 04/09/2022, Expires: Start: 04-03-2022 End: 04-03-2023 Hepatitis C virus RNA panel (viral load) in Serum or Plasma by CAPRICE with probe detection Hepatitis C viral load Lab Routine Traumatic open wound of right lower leg with infection, initial encounter MRSA infection Expected: 04/03/2022 (Approximate), Expires: 04/03/2023 [facility] Work [facility]: Comment on above: Expected: 04/03/2022 (Approximate), Expi res: 04/03/2023 Start: 03-29-2022 End: 03-29-2022 Patient encounter procedure 03/29/2022 Appointment Wound Care Pacheco Boothe, [address] [place] [address] [facility] Start: 03-18-2022 End: 03-18-2022 Patient encounter procedure 03/18/2022 Office Visit Orthopedic Surgery Cass Guzman MD [address] [facility] [address] [place] [address] [facility] [place] Start: 03-18-2022 End: 03-18-2022 Documentation procedure 03/18/2022 Documentation Orthopedic Surgery [facility] [place] Start: 03-14-2022 End: 03-14-2022 Patient encounter procedure Infect Disease - [place] Start: 03-05-2022 End: 03-05-2022 Patient encounter procedure 03/05/2022 Office Visit Infectious Diseases Jarvis Almonte MD [address] [place], [place] [phone] [facility] [place] Start: 03-01-2022 End: 03-01-2022 Patient encounter procedure 03/01/2022 Appointment Wound Care Pacheco Boothe DO [address] [place], [place] [id number] [address] [facility] Start: 02-28-2022 SHINGRIX VACCINE (1 of 2) SHINGRIX VACCINE (1 of 2) [facility] Start: 02-28-2022 Zoster Vaccines (1 of 2) Zoster Vaccines (1 of 2) [facility] Start: 02-28-2022 [facility] Start: 02-17-2022 DEPRESSION ASSESSMENT DEPRESSION ASSESSMENT [facility] Start: 01-31-2022 PNEUMOCOCCAL (2 - PPSV23 if available, else PCV20) PNEUMOCOCCAL (2 - PPSV23 if available, else PCV20) [facility] Start: 01-31-2022 PNEUMOCOCCAL (2 - PPSV23 or PCV20) PNEUMOCOCCAL (2 - PPSV23 or PCV20) [facility] Start: 01-31-2022 Pneumococcal 0-64 years Vaccine (2 - PPSV23 or PCV20) Pneumococcal 0-64 years Vaccine (2 - PPSV23 or PCV20) [facility] Start: 01-31-2022 Pneumococcal Vaccine: Pediatrics (0 to 5 Years) and At-Risk Patients (6 to 64 Years) (2 - PPSV23 if available, else PCV20) Pneumococcal Vaccine: Pediatrics (0 to 5 Years) and At-Risk Patients (6 to 64 Years) (2 - PPSV23 if available, else PCV20) [facility] Start: 10-18-2021 End: 10-18-2021 Patient encounter procedure 10/18/2021 Appointment Vascular Lab Cass Guzman MD [address] [facility] [address] [place] [address] [facility] Start: 10-18-2021 Influenza vaccination [facility] Start: 10-15-2021 End: 10-15-2021 Patient encounter procedure 10/15/2021 Office Visit Ophthalmology Jyoti Ni MD [address] [place] [address] [facility] Ophthalmology Clnic Start: 09-05-2021 [facility] Work Phone: Start: 08-29-2021 End: 10-29-2021 Thyrotropin [Units/volume] in Serum or Plasma TSH BLD Lab Routine Hypothyroidism, acquired Expected: 08/29/2021, Expires: 10/29/2021 [facility] Work Phone: Comment on above: Expected: 08/29/2021, Expires: Start: 05-17-2021 End: 05-17-2021 Evaluation and management of inpatient 05/17/2021 Office Visit Ophthalmology Jyoti Ni MD [address] [place], [place] [id number] [facility] Ophthalmology Clnic Start: 03-28-2021 PNEUMOCOCCAL (2 - PPSV23 if available, else PCV20) PNEUMOCOCCAL (2 - PPSV23 if available, else PCV20) [facility] Start: 03-28-2021 PNEUMOCOCCAL (2 - PPSV23 or PCV20) PNEUMOCOCCAL (2 - PPSV23 or PCV20) [facility] Start: 03-28-2021 Pneumococcal 0-64 years Vaccine (2 of 4 - PPSV23) Pneumococcal 0-64 years Vaccine (2 of 4 - PPSV23) [facility] Start: 03-28-2021 Pneumococcal vaccination [facility] Start: 03-28-2021 Pneumococcal Vaccine: 50+ (2 of 2 - PPSV23) Pneumococcal Vaccine: 50+ (2 of 2 - PPSV23) [facility] Start: 03-28-2021 Pneumococcal Vaccine: Pediatrics (0 to 5 Years) and At-Risk Patients (6 to 64 Years) (2 of 2 - PPSV23 or PCV20) Pneumococcal Vaccine: Pediatrics (0 to 5 Years) and At-Risk Patients (6 to 64 Years) (2 of 2 - PPSV23 or PCV20) [facility] Start: 03-28-2021 [facility] Start: 02-28-2021 Meningococcal B vaccine (2 of 4 - Increased Risk Bexsero 2-dose series) Meningococcal B vaccine (2 of 4 - Increased Risk Bexsero 2-dose series) [facility] Start: 02-28-2021 Meningococcal B Vaccine (2 of 5 - Increased Risk Bexsero 3-dose series) Meningococcal B Vaccine (2 of 5 - Increased Risk Bexsero 3-dose series) [facility] Start: 02-28-2021 Meningococcal B Vaccine: Consider Based On Risk (2 of 4 - Increased Risk Bexsero 2-dose series) Meningococcal B Vaccine: Consider Based On Risk (2 of 4 - Increased Risk Bexsero 2-dose series) [facility] [place] Start: 02-28-2021 MENINGOCOCCAL B: Consider based on risk (2 of 4 - Increased Risk Bexsero 2-dose series) MENINGOCOCCAL B: Consider based on risk (2 of 4 - Increased Risk Bexsero 2-dose series) [facility] [place] Start: 02-17-2021 DEPRESSION ASSESSMENT DEPRESSION ASSESSMENT [facility] [place] Start: 12-19-2020 DTaP/Tdap/Td vaccine (1 - Tdap) DTaP/Tdap/Td vaccine (1 - Tdap) [facility] Start: 12-19-2020 DTaP/Tdap/Td Vaccines (1 - Tdap) DTaP/Tdap/Td Vaccines (1 - Tdap) [facility] Start: 12-19-2020 Urine microalbumin profile [facility] [place] Start: 12-19-2020 [facility] Start: 12-10-2020 HEPATITIS A (3 of 3 - Hep A Twinrix risk 3-dose series) HEPATITIS A (3 of 3 - Hep A Twinrix risk 3-dose series) [facility] [place] Start: 12-10-2020 Hepatitis A vaccine (3 of 3 - Hep A Twinrix risk 3-dose series) Hepatitis A vaccine (3 of 3 - Hep A Twinrix risk 3-dose series) [facility] Start: 12-10-2020 Hepatitis A Vaccines (3 of 3 - Hep A Twinrix risk 3-dose series) Hepatitis A Vaccines (3 of 3 - Hep A Twinrix risk 3-dose series) [facility] Start: 12-10-2020 HEPATITIS B (3 of 3 - Hep B Twinrix risk 3-dose series) [facility] [place] Start: 12-10-2020 Hepatitis B Vaccine (3 of 3 - Hep B Twinrix 3-dose series) Hepatitis B Vaccine (3 of 3 - Hep B Twinrix 3-dose series) [facility] Start: 12-10-2020 Hepatitis B vaccine (3 of 3 - Hep B Twinrix risk 3-dose series) Hepatitis B vaccine (3 of 3 - Hep B Twinrix risk 3-dose series) [facility] Start: 12-10-2020 Hepatitis B Vaccines (3 of 3 - Hep B Twinrix 3-dose series) Hepatitis B Vaccines (3 of 3 - Hep B Twinrix 3-dose series) [facility] Start: 12-10-2020 [facility] Start: 10-18-2020 Influenza vaccination Flu vaccine (#1) [facility] Start: 10-18-2020 [facility] Start: 10-05-2020 Adult depression screening assessment DEPRESSION SCREENING [facility] Start: 06-05-2019 PAP TESTING PAP TESTING [facility] Start: 06-05-2019 Screening for malignant neoplasm of cervix Pap Testing [facility] Start: 10-18-2018 Influenza vaccination Flu vaccine (#1) [employer] Start: 06-04-2017 Screening for malignant neoplasm of cervix Cervical Cancer Screening [facility] Start: 02-28-2017 COLOGUARD (FIT-DNA) COLOGUARD (FIT-DNA) [facility] Start: 02-28-2017 Colonoscopy COLONOSCOPY [facility] Start: 02-28-2017 COLORECTAL CANCER SCREENING COLORECTAL CANCER SCREENING [facility] Start: 02-28-[address] COLONOGRAPHY [facility] Start: 02-28-2017 FECAL OCCULT BLOOD FECAL OCCULT BLOOD [facility] Start: 02-28-2017 Screening for malignant neoplasm of colon [facility] Start: 02-28-2017 SIGMOIDOSCOPY SIGMOIDOSCOPY [facility] Start: 2012 Lipid panel [facility] Start: 2012 Lipid screen Lipid screen [facility] Start: 2012 Mammography [facility] Start: 2012 Screening for malignant neoplasm of breast [facility] Start: 2012 [facility] Start: 03-03-2009 MMR Vaccines (1 of 1 - Standard series) MMR Vaccines (1 of 1 - Standard series) [facility] Start: 02-28-2007 Diabetes screen Diabetes screen [facility] Start: 02-28-2002 HPV TESTING HPV TESTING [facility] Start: 02-28-2002 Screening for malignant neoplasm of cervix [facility] Start: 02-28-1993 Cervical cancer screen Cervical cancer screen [place], [place] Start: 02-28-1993 Screening for malignant neoplasm of cervix [facility] Start: 02-28-1991 Hepatitis B vaccine (1 of 3 - Risk 3-dose series) Hepatitis B vaccine (1 of 3 - Risk 3-dose series) [place] Start: 02-28-1991 ONE PNEUMOVAX PRIOR TO AGE 65 ONE PNEUMOVAX PRIOR TO AGE 65 [facility] Start: 02-28-1991 SHINGRIX VACCINE (1 of 2) SHINGRIX VACCINE (1 of 2) [facility] Start: 02-28-1991 Urine microalbumin profile DTAP,TDAP,TD (1 - Tdap) [facility] Start: 02-28-1990 BP CONTROLLED (<130/80) BP CONTROLLED (<130/80) [facility] Start: 02-28-1990 Depression Screening Depression Screening [facility] Start: 02-28-1990 Diabetes mellitus screening [facility] Start: 02-28-1987 HIV screen HIV screen [place], [place] Start: 02-28-1987 HIV screening [facility] Start: 1984 Depression Monitoring Depression Monitoring [facility] Start: 1984 [facility] Start: 02-28-1983 DTaP/Tdap/Td vaccine (1 - Tdap) DTaP/Tdap/Td vaccine (1 - Tdap) [place] Start: 02-28-1982 MENINGOCOCCAL B: Consider based on risk (1 of 4 - Increased Risk Bexsero 2-dose series) MENINGOCOCCAL B: Consider based on risk (1 of 4 - Increased Risk Bexsero 2-dose series) [facility] Start: 02-28-1978 Pneumococcal 0-64 years Vaccine (1 of 1 - PPSV23) Pneumococcal 0-64 years Vaccine (1 of 1 - PPSV23) [place] Start: 02-28-1978 [facility] Start: 02-28-1977 COVID-19 VACCINE (#1) COVID-19 VACCINE (#1) [facility] Start: 02-28-1977 COVID-19 Vaccine (1) COVID-19 Vaccine (1) [facility] Start: 02-28-1974 MENINGOCOCCAL CONJUGATE (1 - Risk 2-dose series) MENINGOCOCCAL CONJUGATE (1 - Risk 2-dose series) [facility] Start: 02-28-1974 Meningococcal Conjugate Vaccine (1 - Risk 2-dose series) Meningococcal Conjugate Vaccine (1 - Risk 2-dose series) [facility] Start: 02-28-1973 Hepatitis A vaccine (1 of 2 - Risk 2-dose series) [place] Start: 1972 Meningococcal (ACWY) vaccine (1 - Risk start 2-23 months series) Meningococcal (ACWY) vaccine (1 - Risk start 2-23 months series) [facility] Start: 1972 MENINGOCOCCAL CONJUGATE (1 - Risk start 2-23 months series) MENINGOCOCCAL CONJUGATE (1 - Risk start 2-23 months series) [facility] Start: 1972 COVID-19 VACCINE (#1) COVID-19 VACCINE (#1) [facility] Start: 1972 Hepatitis C screening [facility] Start: 1972 HIV screening HIV Screening [facility] Start: 1972 Lipid panel [facility] Start: 1972 Screening for malignant neoplasm of colon [facility] Start: 1972 Yearly Adult Physical Yearly Adult Physical [facility] Start: 1972 [facility] [employer] [facility] Work Phone: End: 12-24-2020 AFB Stain [facility] Work Phone: AFB Stain [facility] Work Phone: Bacteria identified in Unspecified specimen by Culture [facility] Work Phone: Bacteria identified in Wound by Culture WOUND CULTURE AND GRAM STAIN Microbiology Routine Leg wound, right, initial encounter Ordered: 06/12/2021 [facility] Work Phone: Comment on above: Ordered: 06/12/2021 Basic metabolic 2000 panel - Serum or Plasma [facility] Work Phone: End: 01-15-2025 Basic metabolic 2000 panel - Serum or Plasma Basic metabolic panel Lab Routine Tibia and fibula open fracture, right, sequela Once a week for 8 Occurrences starting 01/16/2024 until 01/15/2025 [facility] Work Phone: Comment on above: Once a week for 8 Occurrences starting 1 03/17/2023 until 01/15/2025 Basic metabolic 2000 panel - Serum or Plasma Basic metabolic panel Lab Routine Daily (Lab) until discontinued starting 03/13/2024, 6 completed [facility] Work Phone: Comment on above: Daily (Lab) until discontinued starting 03/13/2024, 6 completed End: 04-02-2024 Basic metabolic 2000 panel - Serum or Plasma Basic metabolic panel Lab Routine Morning draw (Lab) for 3 Occurrences starting 03/31/2024 until 04/02/2024, 2 completed [facility] Work Phone: Comment on above: Morning draw (Lab) for 3 Occurrences sta rting 03/31/2024 until 04/02/2024, 2 completed End: 01-15-2025 C reactive protein [Mass/volume] in Serum or Plasma C-Reactive Protein Lab Routine Tibia and fibula open fracture, right, sequela Once a week for 8 Occurrences starting 01/16/2024 until 01/15/2025 [facility] Work Phone: Comment on above: Once a week for 8 Occurrences starting 03/17/2023 until 01/15/2025 End: 03-31-2025 C reactive protein [Mass/volume] in Serum or Plasma C-Reactive Protein Lab Routine Chronic multifocal osteomyelitis of right tibia (Multi) Every 2 weeks for 5 Occurrences starting 03/31/2024 until 03/31/2025 [facility] Work Phone: Comment on above: Every 2 weeks for 5 Occurrences starting 03/31/2024 until 03/31/2025 End: 05-10-2025 C reactive protein [Mass/volume] in Serum or Plasma [facility] Work Phone: End: 05-12-2025 C reactive protein [Mass/volume] in Serum or Plasma [facility] Work Phone: CBC auto differential CBC auto d ifferential Lab Routine Daily until discontinued starting 01/06/2019, 5 completed [employer] [place], [place] Comment on above: Daily until discontinued starting 2018, 5 completed CBC panel - Blood by Automated count CBC Lab Today Hypertension, essential Ordered: 06/26/2021 [facility] Work Phone: Comment on above: Ordered: 06/26/2021 End: 04-02-2024 CBC panel - Blood by Automated count CBC Lab Routine Morning draw (Lab) for 3 Occurrences starting 03/31/2024 until 04/02/2024, 2 completed [facility] Work Phone: Comment on above: Morning draw (Lab) for 3 Occurrences sta rting 03/31/2024 until 04/02/2024, 2 completed End: 03-31-2025 CBC panel - Blood by Automated count CBC Lab Routine Chronic multifocal osteomyelitis of right tibia (Multi) Every 2 weeks for 5 Occurrences starting 03/31/2024 until 03/31/2025 [facility] Work Phone: Comment on above: Every 2 weeks for 5 Occurrences starting 03/31/2024 until 03/31/2025 End: 05-25-2024 CBC panel - Blood by Automated count [facility] Work Phone: CBC W Auto Different ial panel - Blood [facility] Work Phone: End: 01-15-2025 CBC W Auto Differential panel - Blood CBC and Auto Differential Lab Routine Tibia and fibula open fracture, right, sequela Once a week for 8 Occurrences starting 01/16/2024 until 01/15/2025 [facility] Work Phone: Comment on above: Once a week for 8 Occurrences starting 1 03/17/2023 until 01/15/2025 End: 05-10-2025 CBC W Auto Differential panel - Blood [facility] Work Phone: End: 05-12-2025 CBC W Auto Differential panel - Blood [facility] Work Phone: Chest physiotherapy [facility] Work Phone: Comprehensive metabo lic 2000 panel Comprehensive Metabolic Panel Lab Routine Daily until discontinued starting 01/07/2019, 4 completed [place], [place] Comment on above: Daily until discontinued starting 2018, 4 completed End: 03-31-2025 Comprehensive metabolic 2000 panel - Serum or Plasma Comprehensive metabolic panel Lab Routine Chronic multifocal osteomyelitis of right tibia (Multi) Every 2 weeks for 5 Occurrences starting 03/31/2024 until 03/31/2025 [facility] Work Phone: Comment on above: Every 2 weeks for 5 Occurrences starting 03/31/2024 until 03/31/2025 End: 05-10-2025 Comprehensive metabolic 2000 panel - Serum or Plasma [facility] Work Phone: End: 05-24-2024 Comprehensive metabolic 2000 panel - Serum or Plasma [facility] Work Phone: End: 05-12-2025 Comprehensive metabolic 2000 panel - Serum or Plasma [facility] Work Phone: End: 01-09-2024 Continuous Pulse oximetry, In Phase 1 Continuous Pulse oximetry, In Phase 1 Respiratory Care Routine Continuous until discontinued starting 01/09/2024 [facility] Work Phone: Comment on above: Continuous until discontinued starting 1 03/10/2023 End: 05-10-2025 Creatine kinase [Enzymatic activity/volume] in Serum or Plasma [facility] Work Phone: End: 05-12-2025 Creatine kinase [Enzymatic activity/volume] in Serum or Plasma [facility] Work Phone: End: 07-07-2023 CT Hip - left WO contrast [facility] Work Phone: Comment on above: Once for 1 Occurrences starting 07/07/19 until 07/07/2023 End: 12-15-2023 CT Knee - right WO contrast [facility] Work Phone: Comment on above: Once for 1 Occurrences starting 12/15/19 until 12/15/2023 End: 12-15-2023 CT Lower leg - right WO contrast [facility] Work Phone: Comment on above: Once for 1 Occurrences starting 12/15/19 24 until 12/15/2023 Culture with Smear, Acid Fast Bacillius [facility] Work Phone: Culture, Blood 2 [facility] Work Phone: Culture, Respiratory [facility] Work Phone: End: 06-24-2025 DBT Breast - bilateral screening IVÁN SCREENING W DANA Radiology Routine Encounter for screening mammogram for breast cancer 1 Occurrences starting 05/25/2024 until 06/24/2025 [facility] Work Phone: Comment on above: 1 Occurrences starting 05/25/2024 until 06/24/2025 Dressing Order: Lucio agen Ag; Every other day; 4x4 gauze; Kerlex, Silk tape; Single layer tubigrip Dressing Order: Collagen Ag; Every other day; 4x4 gauze; Kerlex, Silk tape; Single layer tubigrip Wound Ostomy Routine Ordered: 03/15/2022 [employer] Work Phone: Comment on above: Ordered: 03/15/2022 ECG 12 Lead ECG 12 Lead ECG STAT 01/10/2024 12:25 PM EST [facility] Work Phone: ECG COMPLETE ECG COMPLETE ECG Routine Essential hypertension Newly recognized heart murmur Ordered: 11/18/2023 [facility] Comment on above: Ordered: 11/18/2023 End: 11-17-2024 Echocardiography ECHO Cardiology Routine Essential hypertension Newly recognized heart murmur 1 Occurrences starting 11/18/2023 until 11/17/2024 [facility] Comment on above: 1 Occurrences starting 11/18/2023 until 11/17/2024 Electrocardiogram, 12-lead PRN ACS symptoms Electrocardiogram, 12-lead PRN ACS symptoms ECG Routine As needed until discontinued starting 01/09/2024 [facility] Work Phone: Comment on above: As needed until discontinued starting Electrocardiogram, 12-lead PRN ACS symptoms [facility] Work Phone: Comment on above: As needed until discontinued starting Electrocardiogram, 12-lead PRN ACS symptoms Electrocardiogram, 12-lead PRN ACS symptoms ECG Routine As needed until discontinued starting 03/25/2024 [facility] Work Phone: Comment on above: As needed until discontinued starting Electrocardiogram, 12-lead PRN ACS symptoms [facility] Work Phone: Electrocardiogram, 12-lead PRN ACS symptoms [facility] Work Phone: End: 12-18-2020 [place] Greater Than 1 Hour [facility] Work Phone: End: 12-20-2020 [place] Greater Than 1 Hour [facility] Work Phone: End: 12-22-2020 [place] Greater Than 1 Hour [facility] Work Phone: End: 12-26-2020 [place] Greater Than 1 Hour [facility] Work Phone: End: 12-19-2020 [place] LESS THAN 1 HOUR [facility] Work Phone: End: 03-25-2024 Free Flap Donor Site Free Flap Donor Site Wound Ostomy Routine Once for 1 Occurrences starting 03/25/2024 until 03/25/2024 [facility] Work Phone: Comment on above: Once for 1 Occurrences starting 03/25/19 until 03/25/2024 End: 03-25-2024 Free Flap Reconstruction Site Free Flap Reconstruction Site Wound Ostomy Routine Once for 1 Occurrences starting 03/25/2024 until 03/25/2024 [facility] Work Phone: Comment on above: Once for 1 Occurrences starting 03/25/19 until 03/25/2024 Fungus identified in Unspecified specimen by Culture [facility] Work Phone: Fungus identified in Unspecified specimen by Culture [facility] Work Phone: Fungus identified in Unspecified specimen by Culture Fungal Culture/Smear Microbiology Routine 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, unspecified fracture morphology, subsequent encounter 03/25/2024 9:34 AM EST [facility] Work Phone: Fungus identified in Unspecified specimen by Culture [facility] Work Phone: End: 12-19-2020 Glucose [Mass/volume] in Serum or Plasma [facility] Work Phone: High Frequency Chest Wall Oscillation (HFCWO) [facility] Work Phone: Incentive spirometry Incentive s pirometry Respiratory Care Routine Every 2hr while awake until discontinued [facility]05[facility] Comment on above: Every 2hr while awake until discontinued starting 01/05/2019 End: 01-09-2024 Incentive spirometry Instruct Incentive spirometry Instruct Respiratory Care Routine Once for 1 Occurrences starting 01/09/2024 until 01/09/2024 [facility] Work Phone: Comment on above: Once for 1 Occurrences starting 01/09/20 24 until 01/09/2024 End: 03-11-2024 Incentive spirometry Instruct Incentive spirometry Instruct Respiratory Care Routine Once for 1 Occurrences starting 03/11/2024 until 03/11/2024 [facility] Work Phone: Comment on above: Once for 1 Occurrences starting 03/11/19 25 until 03/11/2024 End: 04-26-2024 Incentive spirometry Instruct [facility] Work Phone: End: 05-05-2024 Incentive spirometry Instruct [facility] Work Phone: Initiate Oxygen Ther apy Protocol Initiate Oxygen Therapy Protocol Respiratory Care Routine Daily until discontinued starting 01/05/2019 [facility] Comment on above: Daily until discontinued starting 2018 End: 08-16-2023 IVÁN SCREENING IVÁN SCREENING Radiology Routine Encounter for screening mammogram for breast cancer 1 Occurrences starting 07/17/2022 until 08/16/2023 [facility] Work Phone: Comment on above: 1 Occurrences starting 07/17/2022 until 08/16/2023 Mechanical Ventilati on with default initial settings [facility] Work Phone: End: 04-18-2021 Medication Assisted Treatment Panel Medication Assisted Treatment Panel Lab Add-On One Time for 1 Occurrences starting 04/18/2021 until 04/18/2021 [facility] Work Phone: Comment on above: One Time for 1 Occurrences starting 03/2021 until 04/18/2021 End: 07-24-2024 MG Breast Screening IVÁN SCREENING Radiology Routine Encounter for screening mammogram for breast cancer 1 Occurrences starting 06/25/2023 until 07/24/2024 [facility] Work Phone: Comment on above: 1 Occurrences starting 06/25/2023 until 07/24/2024 End: 12-28-2020 Microscopic examination of blood, culture [facility] Work Phone: Mycobacterium sp identified in Unspecified specimen by Organism specific culture [employer] Culture/Smear Microbiology Routine 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, unspecified fracture morphology, subsequent encounter 03/25/2024 9:34 AM EST [facility] Work Phone: Oxygen therapy [Mini mum Data Set] [facility] Work Phone: Oxygen therapy [Mini mum Data Set] [facility] Work Phone: Oxygen therapy [Mini mum Data Set] Initiate Oxygen Therapy Protocol Respiratory Care Routine As Needed until discontinued starting 04/18/2021 [facility] Work Phone: Comment on above: As Needed until discontinued starting Patient Education ED Pain, Acute , Uncertain Cause ED CYSTITIS Female Adult [facility] Work Phone: Patient referral [facility] Work Phone: End: 01-05-2019 PBP2A TEST FOR S. AUREUS PBP2A TEST FOR S. AUREUS Lab Routine Once for 1 Occurrences starting 01/05/2019 until 01/05/2019 [facility] Comment on above: Once for 1 Occurrences starting 01/06/20 19 until 01/05/2019 PBP2A TEST FOR S. AUREUS PBP2A T EST FOR S. AUREUS Lab Routine 01/05/2019 4:30 PM EST [facility] End: 05-04-2024 Prepare RBC: 1 [facility] Work Phone: Procalcitonin [facility] Work Phone: RADIOLOGY REPORT [facility] Work Phone: End: 01-09-2024 Renal function 2000 panel - Serum or Plasma Renal Function Panel Lab STAT STAT (Lab) for 1 Occurrences starting 01/09/2024 until 01/09/2024 [facility] Work Phone: Comment on above: STAT (Lab) for 1 Occurrences starting until 01/09/2024 RT Communication Order [facility] Work Phone: RT Communication Order [facility] Work Phone: RT Communication Order [facility] Work Phone: End: 09-14-2022 Screening mammography bi 2-view breast inc cad IVÁN SCREENING Radiology Routine Encounter for screening mammogram for breast cancer 1 Occurrences starting 08/15/2021 until 09/14/2022 [facility] Work Phone: Comment on above: 1 Occurrences starting 08/15/2021 until 09/14/2022 Spirometry panel [facility] Work Phone: End: 01-28-2021 Spirometry panel [facility] Work Phone: Spontaneous Breathin g Trial (SBT) [facility] Work Phone: Surgical pathology study [facility] Service Area Work Phone: Thyrotropin [Units/volume] in Serum or Plasma TSH BLD Lab Today Hypothyroidism, acquired Ordered: 06/26/2021 [facility] Work Phone: Comment on above: Ordered: 06/26/2021 End: 01-05-2019 Tissue Homogenization Tissue Homogenization Lab Routine Once for 1 Occurrences starting 01/05/2019 until 01/05/2019 [facility] Comment on above: Once for 1 Occurrences starting 01/06/20 19 until 01/05/2019 Tissue Homogenization Tissue Felix ogenization Lab Routine 01/05/2019 8:22 PM EST [facility] End: 01-18-2024 Vancomycin [Mass/volume] in Serum or Plasma Vancomycin Lab Routine Morning draw (Lab) for 1 Occurrences starting 01/18/2024 until 01/18/2024 [facility] Work Phone: Comment on above: Morning draw (Lab) for 1 Occurrences sta rting 01/18/2024 until 01/18/2024 VL LOWER EXTREMITY BILATERAL VENOUS DUPLEX [facility] Work Phone: Wound microscopy, cu lture and sensitivities [facility] End: 01-08-2019 Wound ostomy eval and treat Wound ostomy eval and treat Wound Ostomy Routine One Time for 1 Occurrences starting 01/08/2019 until 01/08/2019 [facility], [place] Comment on above: One Time for 1 Occurrences starting 12/19 until 01/08/2019 XR CHEST PORTABLE [facility] Work Phone: End: 04-17-2022 XR Hip - left 3 Views [facility] [employer] Work Phone: Comment on above: Once for 1 Occurrences starting 04/18/19 23 until 04/17/2022 End: 05-15-2021 XR WRIST LEFT 3 VW [facility] Work Phone: Comment on above: Once for 1 Occurrences starting 05/16/19 22 until 05/15/2021 [facility] Immunizations Immunization Date Immunization Notes Care Provider [facility] 02-04-2021 haemophilus influenz ae type b vaccine, PRP-T conjugate Bell Scott MD Work Phone: [facility] 01-31-2021 meningococcal B vacc ine, recombinant, OMV, adjuvanted Bell Scott MD Work Phone: [facility] Work Phone: 01-31-2021 pneumococcal conjuga te vaccine, 13 valent Bell Scott MD Work Phone: [facility] 12-18-2020 tetanus and diphther ia toxoids, adsorbed, preservative free, for adult use (5 Lf of tetanus toxoid and 2 Lf of diphtheria toxoid) Adalberto Mcqueen MD Work Phone: [facility] 07-10-2020 hepatitis A and hepatitis B vaccine Bijan Elmore MD Work Phone: [facility] [place] Work Phone: 07-10-2020 hepatitis B vaccine, unspecified formulation Bijan Elmore MD Work Phone: [facility] 03-13-2020 hepatitis A and hepatitis B vaccine Bijan Elmore MD Work Phone: [facility] Work Phone: 02-07-2017 influenza virus vacc ine, unspecified formulation Bijan Elmore MD Work Phone: [facility] 06-05-2015 pneumococcal conjuga te vaccine, 13 valent Bijan Elmore MD Work Phone: [facility] 02-03-2009 novel influenza-H1N1 -09, preservative-free, injectable Bijan Elmore MD Work Phone: [facility] 02-03-2009 influenza virus vacc ine, unspecified formulation [facility] 02-28-1973 measles, mumps and rubella virus vaccine Bijan Elmore MD Work Phone: [facility] Payers Date Payer Category Payer Self-pay [id number] 2023 Medicaid (Managed Care) 1.2. [id number] 2023 Private Health Insurance 2018 Private Health Insurance [facility] xxxxxxxxx 2018-Present [phone] [address] [place] [address] xxxxxxxxx [id number]. [id number] 2016 Private Health Insurance [id number] 1.2.840.375140.1.13.239.2. [id number] 2015 Medicaid [facility] MEDICAID [facility] MEDICAID [id number] 2015-Present [phone] [address] [place] [address] Medicaid [id number] [id number]. [id number] 2015 Medicaid [id number]. 1.13.159.2. [id number] 1972 Unknown [id number] 2.16.840.1.016427.3.579.2. 732 1972 Unknown [id number] 2.16.840.1.477860.3.579.2. 732 1972 Unknown [id number] 2.16.840.1.341235.3.579.2. 1972 Unknown [id number] 2.16.840.1.718818.3.579.2. 1972 Unknown [id number] 2.16.840.1.305642.3.579.2. 1972 Unknown [id number] 2.16.840.1.621193.3.579.2. 1972 Unknown [id number] 2.16.840.1.857135.3.579.2. 1972 Unknown [id number] 2.16.840.1.093901.3.579.2. 1972 Unknown [id number] 2.16.840.1.939363.3.579.2. 1972 Unknown [id number] 2.16.840.1.870822.3.579.2. 1972 Unknown [id number] 2.16.840.1.530709.3.579.2. 1972 Unknown [id number] 2.16.840.1.200875.3.579.2. 1972 Unknown [id number] 2.16.840.1.804916.3.579.2. 668 1972 Unknown [id number] 2.16.840.1.317783.3.579.2. 668 1972 Unknown [id number] 2.16.840.1.223589.3.579.2. 479 1972 Unknown [id number] 2.16.840.1.912020.3.579.2. 479 1972 Unknown [id number] 2.16.840.1.532579.3.579.2. 1242 1972 Unknown [id number] 2.16.840.1.587982.3.579.2. 1241 1972 Unknown [id number] 2.16.840.1.899155.3.579.2. 1241 1972 Unknown [id number] 2.16.840.1.404950.3.579.2. 1241 1972 Unknown [id number] 2.16.840.1.985972.3.579.2. 1241 1972 Unknown [id number] 2.16.840.1.285277.3.579.2. 1241 1972 Unknown [id number] 2.16.840.1.174768.3.579.2. 598 1972 Unknown [id number] 2.16.840.1.744315.3.579.2. 1244 1972 Unknown [id number] 2.16.840.1.299441.3.579.2. 1244 1972 Unknown [id number] 2.16.840.1.982813.3.579.2. 1244 1972 Unknown [id number] 2.16.840.1.809932.3.579.2. 1244 1972 Unknown [id number] 2.16.840.1.015715.3.579.2. 1244 1972 Unknown [id number] 2.16.840.1.730013.3.579.2. 1245 1972 Unknown [id number] 2.16.840.1.820161.3.579.2. 1245 1972 Unknown [id number] 2.16.840.1.046455.3.579.2. 1245 1972 Unknown [id number] 2.16.840.1.023034.3.579.2. 124 1972 Unknown [id number] 2.16.840.1.547563.3.579.2. 1245 1972 Unknown [id number] 2.16.840.1.131831.3.579.2. 124 1972 Unknown [id number] 2.16.840.1.629264.3.579.2. 124 1972 Unknown [id number] 2.16.840.1.969267.3.579.2. 651 1972 Unknown [id number] 2.16.840.1.266234.3.579.2. 1244 1972 Unknown [id number] 2.16.840.1.225660.3.579.2. 1244 1959 Medicaid [id number] Unknown Unknown [id number] 2.16.840.1.379184.3.579.2. 668 Unknown [id number] 2.16840.1.114430.3.579.2. 462 Unknown [id number] 2.16.840.1.949432.3.579.2. 462 Unknown [id number] 2.16840.1.273127.3.579.2. 462 Social History Date Type Detail Facility Start: 01-08-2019 End: 11-18-2023 Tobacco smoking status MSIS Current every day smoker [facility] Start: 01-08-2019 Alcohol intake Ex-drinker (finding) [place], [place] Start: 1970 Sex Assigned At Not on file [place], [place] History of tobacco use Cigarette Smoker S [facility] Work Phone: Start: 12-19-2020 End: 11-18-2023 Cigarettes smoked current (pack per day) - Reported [facility] Start: 12-19-2020 End: 11-18-2023 Tobacco use and exposure Smokeless tobacco non-user [facility] Work Phone: Start: 12-19-2020 End: 05-07-2024 Alcohol intake Lifetime non-drinker (finding) [facility] Work Phone: Start: 12-19-2020 End: 07-12-2021 History SDOH Alcohol Frequency 1 [facility] Work Phone: Start: 09-04-2021 End: 09-14-2021 Exposure to SARS-CoV-2 (event) Unable to assess [facility] Start: 05-05-2021 End: 05-05-2024 Exposure to SARS-CoV-2 (event) Not sure [facility] Start: 06-07-2020 End: 11-18-2023 Alcohol intake Not Asked [facility] Start: 07-12-2021 History SDOH Alcohol Std Drinks 98 [facility] Start: 07-12-2021 History SDOH Social Connections Phone 4 [facility] Start: 07-12-2021 End: 06-17-2022 History SDOH Social Connections Get Together 5 [facility] Start: 07-12-2021 History SDOH Social Connections Uatsdin 3 [facility] Start: 07-12-2021 End: 06-17-2022 History SDOH Social Connections Membership 2 [facility] Start: 07-12-2021 History SDOH Social Connections Living 7 [facility] Start: 07-12-2021 History SDOH Physica l Activity MPS 12 [facility] Start: 09-05-2021 End: 11-28-2022 Tobacco smoking status NHIS Unknown if ever smoked [facility] Start: 1970 Sex Assigned At Female W [facility] Start: 07-12-2021 End: 11-18-2023 Social connection and isolation panel [facility] Do you belong to any clubs or organizations such as temple groups, unions, fraternal or athletic groups, or school groups? No [facility] How often do you att end meetings of the clubs or organizations you belong to? Patient refused [facility] Are you now , , , , never or living with a partner? Never [facility] How often to you hav e a drink containing alcohol? Never [facility] How hard is it for y ou to pay for the very basics like food, housing, medical care, and heating Somewhat hard [facility] Do you feel stress - tense, restless, nervous, or anxious, or unable to sleep at night because your mind is troubled all the time - these days [OSQ] To some extent [facility] (I/We) worried gildardo er (my/our) food would run out before (I/we) got money to buy more. Never true [facility] The food that (I/we) bought just didn't last, and (I/we) didn't have money to get more. Sometimes true [facility] Has the [employer], or water [employer] threatened to shut off services in your home in past 12Mo Yes [facility] Do you feel stress - tense, restless, nervous, or anxious, or unable to sleep at night because your mind is troubled all the time - these days [OSQ] Very much [facility] How hard is it for y ou to pay for the very basics like food, housing, medical care, and heating Not very hard [facility] Start: 04-25-2024 Sex Female (finding) [facility] Medical Equipment Procedure Code Equipment Code Equipment Origin al Text Equipment Identifier Dates [id number] Start: 01-09-2024 ()[id number], 48_[facility] FDA Start: 01-09-2024 ()[id number] [id number], 51_[facility] FDA Start: 01-09-2024 ()[id number], 53_[facility] FDA Start: 01-09-2024 ()[id number], 52_imp FDA Start: 01-09-2024 Comment on above: Description: Per ace l only jdr 01/11 ()[id number], [id number] FDA Start: 03-12-2024 [id number], [id number] FDA Start: 03-12-2024 ()[id number], [id number] FDA Start: 03-12-2024 ()[id number], [id number] FDA Start: 03-12-2024 [id number] Start: 03-12-2024 [id number] Start: 03-12-2024 Comment on above: Description: Per ace l only jdr 03/18/24 [id number] Start: 03-25-2024 [id number] Start: 03-25-2024 [id number] Start: 05-05-2024 Goals Date Patient Goal Desired Activity /State Personal health goal Clinical Notes 12-19-2020 to 08-05-2024 Telephone Encounter - Bijan Elmore MD - 08/05/2024 8:53 AM EDTTelephone Encounter - Bijan Elmore MD - 08/05/2024 8:53 AM EDTTelephone Encounter - Costa Johnson LPN - 08/05/2024 8:50 AM EDT Note Date & Type Note Facility 08-05-2024 Telephone encounter Note The following approved medication requests have been transmitted electronically. Requested Prescriptions Signed Prescriptions Disp Refills clonazePAM (KLONOPIN) 0.5 mg tablet 90 tablet 0 Sig: Take 1 tablet by mouth three times a day for 30 days. Authorizing Provider: BIJAN ELMORE MD [facility] 06-19-2025 Miscellaneous Notes The following approved medication requests have been transmitted electronically. Requested Prescriptions Signed Prescriptions Disp Refills clonazePAM (KLONOPIN) 0.5 mg tablet 90 tablet 0 Sig: Take 1 tablet by mouth three times a day for 30 days. Authorizing Provider: BIJAN ELMORE MD Prescription Refill Information The patient has been identified by name and date of : Yes Caregiver verified no other encounters exist for this prescription request: Yes Caregiver confirmed with patient/requestor that no other refills are due, in the near future, with this provider at this time: Yes The last office visit in the department: 11/18/2023 Does the patient have a future office visit with this provider/department: No Requested Prescriptions Pending Prescriptions Disp Refills clonazePAM (KLONOPIN) 0.5 mg tablet [Pharmacy Med Name: clonazePAM 0.5 MG Oral Tablet] 90 tablet 0 Sig: Take 1 tablet by mouth three times a day. Costa Johnson LPN August 05, 2024 8:50 AM documented in this encounter [facility] 08-05-2024 Telephone encounter Note Prescription Refill Information The patient has been identified by name and date of : Yes Caregiver verified no other encounters exist for this prescription request: Yes Caregiver confirmed with patient/requestor that no other refills are due, in the near future, with this provider at this time: Yes The last office visit in the department: 11/18/2023 Does the patient have a future office visit with this provider/department: No Requested Prescriptions Pending Prescriptions Disp Refills clonazePAM (KLONOPIN) 0.5 mg tablet [Pharmacy Med Name: clonazePAM 0.5 MG Oral Tablet] 90 tablet 0 Sig: Take 1 tablet by mouth three times a day. Costa Johnson LPN August 05, 2024 8:50 AM [facility] 08-05-2024 Telephone encounter Note Prescription Refill Information The patient has been identified by name and date of : Yes Caregiver verified no other encounters exist for this prescription request: Yes Caregiver confirmed with patient/requestor that no other refills are due, in the near future, with this provider at this time: Yes The last office visit in the department: 11/18/2023 Does the patient have a future office visit with this provider/department: No Requested Prescriptions Pending Prescriptions Disp Refills clonazePAM (KLONOPIN) 0.5 mg tablet 90 tablet 0 Sig: Take 1 tablet by mouth three times a day for 30 days. Costa Johnson LPN August 05, 2024 8:34 AM [facility] 08-05-2024 Miscellaneous Notes Prescription Refill Information The patient has been identified by name and date of : Yes Caregiver verified no other encounters exist for this prescription request: Yes Caregiver confirmed with patient/requestor that no other refills are due, in the near future, with this provider at this time: Yes The last office visit in the department: 11/18/2023 Does the patient have a future office visit with this provider/department: No Requested Prescriptions Pending Prescriptions Disp Refills clonazePAM (KLONOPIN) 0.5 mg tablet 90 tablet 0 Sig: Take 1 tablet by mouth three times a day for 30 days. Costa Johnson LPN August 05, 2024 8:34 AM documented in this encounter [facility] 07-02-2024 Telephone encounter Note The following approved medication requests have been transmitted electronically. Requested Prescriptions Signed Prescriptions Disp Refills clonazePAM (KLONOPIN) 0.5 mg tablet 90 tablet 0 Sig: Take 1 tablet by mouth three times a day for 30 days. Authorizing Provider: BIJAN ELMORE MD [facility] 07-02-2024 Miscellaneous Notes The following approved medication requests have been transmitted electronically. Requested Prescriptions Signed Prescriptions Disp Refills clonazePAM (KLONOPIN) 0.5 mg tablet 90 tablet 0 Sig: Take 1 tablet by mouth three times a day for 30 days. Authorizing Provider: BIJAN ELMORE MD Prescription Refill Information The patient has been identified by name and date of : Yes Caregiver verified no other encounters exist for this prescription request: Yes Caregiver confirmed with patient/requestor that no other refills are due, in the near future, with this provider at this time: Yes The last office visit in the department: 11/18/23 Does the patient have a future office visit with this provider/department: No Requested Prescriptions Pending Prescriptions Disp Refills clonazePAM (KLONOPIN) 0.5 mg tablet 90 tablet 0 Sig: Take 1 tablet by mouth three times a day for 30 days. Elen Wilson LPN July 02, 2024 11:52 AM documented in this encounter [facility] 07-02-2024 Telephone encounter Note Prescription Refill Information The patient has been identified by name and date of : Yes Caregiver verified no other encounters exist for this prescription request: Yes Caregiver confirmed with patient/requestor that no other refills are due, in the near future, with this provider at this time: Yes The last office visit in the department: 11/18/23 Does the patient have a future office visit with this provider/department: No Requested Prescriptions Pending Prescriptions Disp Refills clonazePAM (KLONOPIN) 0.5 mg tablet 90 tablet 0 Sig: Take 1 tablet by mouth three times a day for 30 days. Elen Wilson LPN July 02, 2024 11:52 AM [facility] 06-16-2024 Telephone encounter Note Prescription Refill Information The patient has been identified by name and date of : Yes Caregiver verified no other encounters exist for this prescription request: Yes Caregiver confirmed with patient/requestor that no other refills are due, in the near future, with this provider at this time: Yes The last office visit in the department: 11/18/2023 Does the patient have a future office visit with this provider/department: No Requested Prescriptions Pending Prescriptions Disp Refills baclofen 20 mg tablet 90 tablet 5 Sig: Take 1 tablet by mouth three times a day. Costa Johnson LPN June 16, 2024 1:49 PM [facility] 06-16-2024 Miscellaneous Notes Prescription Refill Information The patient has been identified by name and date of : Yes Caregiver verified no other encounters exist for this prescription request: Yes Caregiver confirmed with patient/requestor that no other refills are due, in the near future, with this provider at this time: Yes The last office visit in the department: 11/18/2023 Does the patient have a future office visit with this provider/department: No Requested Prescriptions Pending Prescriptions Disp Refills baclofen 20 mg tablet 90 tablet 5 Sig: Take 1 tablet by mouth three times a day. Costa Johnson LPN June 16, 2024 1:49 PM documented in this encounter [facility] 05-31-2024 Telephone encounter Note Prescription Refill Information The patient has been identified by name and date of : Yes Caregiver verified no other encounters exist for this prescription request: Yes Caregiver confirmed with patient/requestor that no other refills are due, in the near future, with this provider at this time: Yes The last office visit in the department: 11/18/2023 Does the patient have a future office visit with this provider/department: No Requested Prescriptions Pending Prescriptions Disp Refills promethazine (PHENERGAN) 25 mg tablet 30 tablet 2 Sig: Take 1 tablet by mouth every 6 hours as needed. Refused Prescriptions Disp Refills sertraline (ZOLOFT) 100 mg tablet 90 tablet 0 Sig: Take 1 tablet by mouth once daily. Wean as directed. Costa Johnson LPN May 31, 2024 11:10 AM [facility] 05-31-2024 Miscellaneous Notes Prescription Refill Information The patient has been identified by name and date of : Yes Caregiver verified no other encounters exist for this prescription request: Yes Caregiver confirmed with patient/requestor that no other refills are due, in the near future, with this provider at this time: Yes The last office visit in the department: 11/18/2023 Does the patient have a future office visit with this provider/department: No Requested Prescriptions Pending Prescriptions Disp Refills promethazine (PHENERGAN) 25 mg tablet 30 tablet 2 Sig: Take 1 tablet by mouth every 6 hours as needed. Refused Prescriptions Disp Refills sertraline (ZOLOFT) 100 mg tablet 90 tablet 0 Sig: Take 1 tablet by mouth once daily. Wean as directed. Costa Johnson LPN May 31, 2024 11:10 AM documented in this encounter [facility] 05-25-2024 Telephone encounter Note The following approved medication requests have been transmitted electronically. Requested Prescriptions Signed Prescriptions Disp Refills sertraline (ZOLOFT) 100 mg tablet 90 tablet 0 Sig: take 1 tablet by mouth once daily . WEAN DIRECTED Authorizing Provider: BIJAN ELMORE MD [facility] 05-25-2024 Miscellaneous Notes The following approved medication requests have been transmitted electronically. Requested Prescriptions Signed Prescriptions Disp Refills sertraline (ZOLOFT) 100 mg tablet 90 tablet 0 Sig: take 1 tablet by mouth once daily . WEAN DIRECTED Authorizing Provider: BIJAN ELMORE MD Prescription Refill Information The patient has been identified by name and date of : Yes Caregiver verified no other encounters exist for this prescription request: Yes Caregiver confirmed with patient/requestor that no other refills are due, in the near future, with this provider at this time: Yes The last office visit in the department: 11/18/23 Does the patient have a future office visit with this provider/department: No Requested Prescriptions Pending Prescriptions Disp Refills sertraline (ZOLOFT) 100 mg tablet [Pharmacy Med Name: SERTRALINE HCL 100 MG TABLET] 90 tablet 0 Sig: take 1 tablet by mouth once daily . WEAN DIRECTED Carlo Miranda LPN May 25, 2024 10:56 AM documented in this encounter [facility] 05-25-2024 Telephone encounter Note Prescription Refill Information The patient has been identified by name and date of : Yes Caregiver verified no other encounters exist for this prescription request: Yes Caregiver confirmed with patient/requestor that no other refills are due, in the near future, with this provider at this time: Yes The last office visit in the department: 11/18/23 Does the patient have a future office visit with this provider/department: No Requested Prescriptions Pending Prescriptions Disp Refills sertraline (ZOLOFT) 100 mg tablet [Pharmacy Med Name: SERTRALINE HCL 100 MG TABLET] 90 tablet 0 Sig: take 1 tablet by mouth once daily . WEAN DIRECTED Carlo Miranda LPN May 25, 2024 10:56 AM [facility] 05-25-2024 Note Patient Outreach (DENISE LACKEY) DEIDRA DE LA CRUZ ([id number]) 1970 F Date Time Provider Department 05/25/24 BIJAN ELMORE During your visit today, we recorded the following information about you: Allergies As of Date: 05/25/2024 Noted Allergy Reaction PENICILLIN 06/05/2015 16 - Unknown Date Reviewed: 11/18/2023 Reviewed by: Carlo Miranda LPN - Fully Assessed Visit Diagnosis:Encounter for screening mammogram for breast cancer [Z12.31] Order(s):[facility] [[id number]] Order #: [id number] FUTURE Prescriptions as of 06/25/2024 - baclofen 20 mg tablet Take 1 tablet by mouth three times a day. - promethazine (PHENERGAN) 25 mg tablet Take 1 tablet by mouth every 6 hours as needed. - cloNIDine HCl (CATAPRES) 0.1 mg tablet Take 1 tablet by mouth three times a day. - clonazePAM (KLONOPIN) 0.5 mg tablet Take 1 tablet by mouth three times a day for 30 days. - sertraline (ZOLOFT) 100 mg tablet take 1 tablet by mouth once daily . WEAN DIRECTED - buPROPion SR (WELLBUTRIN SR) 150 mg 12 hr tablet take 1 tablet by mouth twice a day - levETIRAcetam (KEPPRA) 500 mg tablet Take 1 tablet by mouth two times a day. - famotidine (PEPCID) 20 mg tablet Take 1 tablet by mouth once daily. - levothyroxine (LEVOXYL) 75 mcg tablet Take 1 tablet by mouth once daily. Take on empty stomach. For thyroid. - ibuprofen (MOTRIN) 600 mg tablet Take 1 tablet by mouth every 8 hours as needed for pain. - gabapentin (NEURONTIN) 600 mg tablet Take 1 tablet by mouth three times a day for 90 days. - white petrolatum (AQUAPHOR) 41 % topical ointment Apply to affected area as needed. - acetaminophen (TYLENOL EXTRA STRENGTH) 500 mg tablet Take 2 tablets by mouth every 6 hours as needed for pain. - lidocaine (LIDODERM) 5 % Apply 1 Patch as directed every 24 hours. Remove old patch after 12 hours Location: arm - Mirtazapine (REMERON) 7.5 mg tablet take 1 tablet by mouth at bedtime - Underpads 23 X 24 pads 1 Each as needed. - Foam Bandage (OPTIFOAM) 4 X 4 bndg Apply to affected area as needed. - amLODIPine (NORVASC) 5 mg tablet amlodipine 5 mg tablet - melatonin 5 mg tablet Take 5 mg by mouth. - methadone 5 mg/5 mL solution Take 5 mL by mouth once daily. Problem List As Of Date 05/25/2024 Noted Resolved Chronic anxiety [F41.9] 06/05/2015 Gastroesophageal reflux disease [K21.9] 06/05/2015 Chronic constipation [K59.09] 06/05/2015 Chronic nausea [R11.0] 06/05/2015 Hepatitis C antibody positive in blood [R76.8] 04/08/2017 Chronic hepatitis C without hepatic coma (HCC) *02/03/2019 Positive urine drug screen [R82.5] 04/30/2019 Debility [R53.81] 04/18/2021 Traumatic injury [T14.90XA] 06/27/2021 Chronic pain syndrome [G89.4] 06/27/2021 Multiple fractures [T07.XXXA] 06/27/2021 Seizures (HCC) [R56.9] 09/18/2021 Encounter Status:Closed by EPIC, PRODUSER on 06/25/24 [facility] 05-22-2024 Note . MICRO - Microbiology PROCEDURE: Catheter Tip Culture [*1] SOURCE: Catheter Tip BODY SITE: COLLECTED DATE/TIME: 05/19/2024 19:30 EDT RECEIVED DATE/TIME: 05/20/2024 15:25 EDT START DATE/TIME: 05/20/2024 15:26 EDT FREE TEXT SOURCE: FINAL REPORTS Final Report [] Verified Date/Time/Personnel: 05/22/2024 08:03 EDT No growth at 48 hours. PRELIMINARY REPORTS Preliminary Report [] Verified Date/Time/Personnel: 05/21/2024 11:38 EDT No growth to date Performing Locations *1: This test was performed at: [facility], [address] [place] [address], [id number] , [facility] 05-12-2024 Nurse Note Nursing staff notified of patient departure from LT6 at [phone] Nursing report called to [phone] Vee Garrido RN VAST nurse called to bedside for IV placement. Patient reporting that she would like a PICC line as she is going to be on antibiotics for an extended period of time. She has had multiple IV's infiltrate and she is, tired of all the sticks. This nurse provided emotional support and time to listen to patient concerns. Patient encouraged to advocate for herself and bedside nurse informed patient requesting alternative access. Patient educated to inform nursing staff if IV causes pain, if she notices swelling or redness. Patient voiced understanding and has no questions at this time. Comfort care provided and call light in reach of patient. 05/02/24 WEST RN consulted for PIV restart. 2 attempts made, unsuccessful. Bedside RN aware that patient needs alternative access s/p malfunction of current Accu-cath. documented in this encounter [facility] Work Phone: 05-12-2024 Miscellaneous Notes The patient's goals for the shift include The clinical goals for the shift include patient to remain stable Over the shift, the patient did make progress toward the following goals. Problem: Pain - Adult Goal: Verbalizes/displays adequate comfort level or baseline comfort level Outcome: Met Problem: Skin Goal: Decreased wound size/increased tissue granulation at next dressing change Outcome: Met Goal: Participates in plan/prevention/treatment measures Outcome: Met Goal: Prevent/manage excess moisture Outcome: Met Goal: Promote/optimize nutrition Outcome: Met Goal: Promote skin healing Outcome: Met Problem: Skin Goal: Decreased wound size/increased tissue granulation at next dressing change 05/12/202428 by Vianey Kunz RN Outcome: Progressing 05/12/202428 by Vianey Kunz RN Outcome: Progressing Goal: Participates in plan/prevention/treatment measures 05/12/202428 by Vianey Kunz RN Outcome: Progressing 05/12/202428 by Vianey Kunz RN Outcome: Progressing Goal: Prevent/manage excess moisture 05/12/202428 by Vianey Kunz RN Outcome: Progressing 05/12/202428 by Vianey Kunz RN Outcome: Progressing Goal: Promote/optimize nutrition 05/12/202428 by Vianey Kunz RN Outcome: Progressing 05/12/202428 by Vianey Kunz RN Outcome: Progressing Goal: Promote skin healing Outcome: Progressing Problem: Fall/Injury Goal: Use assistive devices by end of the shift Outcome: Progressing Goal: Pace activities to prevent fatigue by end of the shift Outcome: Progressing Goal: Not fall by end of shift Outcome: Progressing Goal: Be free from injury by end of the shift Outcome: Progressing Goal: Verbalize understanding of personal risk factors for fall in the hospital Outcome: Progressing Problem: Pain - Adult Goal: Verbalizes/displays adequate comfort level or baseline comfort level Outcome: Progressing The clinical goals for the shift include Patient's pain controlled to tolerable level. Patient compliant with DVT prophylaxis. Patient remains safe and free from falls. Patient compliant with skin prevention measures. Pre-Procedure Checklist: Emergent Line Insertion: No Type of Line to be Placed: midline Consent Obtained: Yes Emergency Medication Necessary: No Patient Identified with 2 Independent Identifiers: Yes Review of Allergies, Anticoagulation, Relevant Labs, ECG/Telemetry: Yes Risks/Benefits/Alternatives Discussed with Patient/POA/Legal Window Shade Ring Sewer: Yes Stop Sign on Door: Yes Time Out Performed: Yes Catheter Exchange: No Positioning Checklist: All People, Including Patient, in the Room with Cap and Mask: Yes Fluoroscopy Used to Identify Vessel and Guide Insertion: No Sterile Cover Used: Yes Full Barrier Precautions Followed (Mask, Cap, Gown, Gloves): Yes Hands Washed: Yes Monitors Attached with Sound Alarms On: No Full Body Sterile Drape (Head-to-Toe) Used to Cover Patient: Yes Trendelenburg Position (For IJ and Subclavian): No CHG Skin Prep Used and Allowed to Air Dry to Skin Procedure: Yes Procedure Checklist: Blood Aspirated From All Lumens, All Ports Subsequently Flushed: Yes Catheter Caps Placed on All Lumens; Lumens Clamped: Yes Maintain Guidewire Control Throughout, Ensuring Guidewire Removal: Yes Maintain Sterile Field Throughout Insertion: Yes Catheter Secured: Yes Confirmatory Test of Venous Placement: Non-Pulsatile Blood Post Procedure Checklist: Date and Time Written on Dressing: Yes Sharp and Wire Count and Safe Disposal of all Sharps/Wires: Yes Sterile Dressing Applied Per Protocol: Yes X-ray Ordered or ECG Image: N/A PICC Insertion Details: Size (Fr): 3 Lumen Type: single Catheter to Vein Ratio Less Than 50%: Yes Total Length (cm): 9 External Length (cm): 0 Orientation: left upper arm Location: basilic Site Prep: Chlorohexidine; Usual sterile procedure followed Local Anesthetic: Injectable/Subcutaneous Indication: IV antibiotics until 05/21/2024 Insertion Team Members in the Room: NursePEDRO Initial Extremity Circumference (cm): 34 Insertion Attempts: 1 Patient Tolerance: Tolerated Well, Age Appropriate Comfort Measures: Subcutaneous anesthetic; Verbal Procedure Location: Bedside Safety Measures: Patient specific safety measures addressed with RN Estimated Blood Loss (mL): 0.5 Vessel Fully Compressible Proximally and Distally to Insertion Site: Yes Brisk Blood Return Obtained and Line Draws Easily: Yes Tip Location: axillary vein Line Confirmation: non-pulsatile blood return Lot #: [id number] Dance Entertainer: BD PICC Line Exp Date: 11/16/2024 Securement: Stat Lock Post Procedure Checklist: Handoff with RN; Obtain all new IV tubing prior to use; Bed at lowest level and wheels locked; Line discharge information at bedside. Additional Details: Line was inserted using Modified Seldinger's Technique. Placed by: Bri Arenas RN Problem: Skin Goal: Decreased wound size/increased tissue granulation at next dressing change Outcome: Progressing Goal: Participates in plan/prevention/treatment measures Outcome: Progressing Goal: Prevent/manage excess moisture Outcome: Progressing Goal: Promote/optimize nutrition Outcome: Progressing Goal: Promote skin healing Outcome: Progressing Problem: Pain Goal: Takes deep breaths with improved pain control throughout the shift Outcome: Progressing Goal: Turns in bed with improved pain control throughout the shift Outcome: Progressing Goal: Walks with improved pain control throughout the shift Outcome: Progressing Goal: Performs ADL's with improved pain control throughout shift Outcome: Progressing Goal: Participates in PT with improved pain control throughout the shift Outcome: Progressing Goal: Free from opioid side effects throughout the shift Outcome: Progressing Goal: Free from acute confusion related to pain meds throughout the shift Outcome: Progressing Problem: Fall/Injury Goal: Use assistive devices by end of the shift Outcome: Progressing Goal: Pace activities to prevent fatigue by end of the shift Outcome: Progressing The patient's goals for the shift include The clinical goals for the shift include Patient will remain comfortable throughout shift. The patient's goals for the shift include Control Pain The clinical goals for the shift include Patient will remain comfortable throughout shift. Problem: Skin Goal: Decreased wound size/increased tissue granulation at next dressing change Outcome: Progressing Goal: Participates in plan/prevention/treatment measures Outcome: Progressing Goal: Prevent/manage excess moisture Outcome: Progressing Goal: Promote/optimize nutrition Outcome: Progressing Goal: Promote skin healing Outcome: Progressing Problem: Pain Goal: Takes deep breaths with improved pain control throughout the shift Outcome: Progressing Goal: Turns in bed with improved pain control throughout the shift Outcome: Progressing Goal: Walks with improved pain control throughout the shift Outcome: Progressing Goal: Performs ADL's with improved pain control throughout shift Outcome: Progressing Goal: Participates in PT with improved pain control throughout the shift Outcome: Progressing Goal: Free from opioid side effects throughout the shift Outcome: Progressing Goal: Free from acute confusion related to pain meds throughout the shift Outcome: Progressing Problem: Fall/Injury Goal: Use assistive devices by end of the shift Outcome: Progressing Goal: Pace activities to prevent fatigue by end of the shift Outcome: Progressing The patient's goals for the shift include The clinical goals for the shift include Will remain hemodynamically stable throughout shift ending 05/10/24 @ 0700 hrs. Asked to provide recommendations for an Occlusive thrombus of one of the left posterior tibial veins. Patient will officially be staffed tomorrow, formal consult note to follow tomorrow 54yo F here for R AKA. Patient currently not mobilizing. On ASA 81mg BID Patient seen. Denies chest pain, shortness of breath. Denies a history of blood clots. Reports maybe that her uncle had a blood clot in the past. Denies hematuria. Denies hematochezia. Denies melena. Denies hemoptysis. Vitals reviewed. Blood pressure and pulse within patient's baseline Exam: RLE s/p AKA, wound vac in place LLE edematous upto hip Chest clear anteriorly, not on supplemental O2 CVS: rrr, no murmurs appreciated General: alert, NAD #Provoked DVT Prelim recs: -ensure type and screen is active every 72 hours -If safe from an orthopedic surgery standpoint, and no concerns for bleeding from primary team stand point, can start heparin drip high intensity for DVT treatment. Noted recent blood transfusion, however primary team feels that there is no signs of active bleeding -If patient will be started on a heparin drip, aspirin 81 twice a day is not needed -Watch for signs of embolization to the pulmonary arteries , signs include tachycardia and hypoxia -If suspicion for pulmonary embolism arises, please hold clonidine -Watch for signs and symptoms of bleeding -Formal recommendations as to duration of treatment to follow. To be formally staffed in the AM Recs conveyed to primary team Problem: Skin Goal: Decreased wound size/increased tissue granulation at next dressing change 05/09/2024 1047 by Mc Proctor RN Outcome: Progressing 05/09/2024 1046 by Mc Proctor RN Outcome: Progressing Goal: Participates in plan/prevention/treatment measures 05/09/2024 1047 by Mc Proctor RN Outcome: Progressing 05/09/2024 1046 by Mc Proctor RN Outcome: Progressing Goal: Prevent/manage excess moisture 05/09/2024 1047 by Mc Proctor RN Outcome: Progressing 05/09/2024 1046 by Mc Proctor RN Outcome: Progressing Goal: Prevent/minimize sheer/friction injuries 05/09/2024 1047 by Mc Proctor RN Outcome: Progressing 05/09/2024 1046 by Mc Proctor RN Outcome: Progressing Goal: Promote/optimize nutrition 05/09/2024 1047 by Mc Proctor RN Outcome: Progressing 05/09/2024 1046 by Mc Proctor RN Outcome: Progressing Goal: Promote skin healing 05/09/2024 1047 by Mc Proctor RN Outcome: Progressing 05/09/2024 1046 by cM Proctor RN Outcome: Progressing Problem: Pain Goal: Takes deep breaths with improved pain control throughout the shift 05/09/2024 1047 by cM Proctor RN Outcome: Progressing 05/09/2024 1046 by Mc Proctor RN Outcome: Progressing Goal: Turns in bed with improved pain control throughout the shift 05/09/2024 1047 by Mc Proctor RN Outcome: Progressing 05/09/2024 1046 by Mc Proctor RN Outcome: Progressing Goal: Walks with improved pain control throughout the shift 05/09/2024 1047 by Mc Proctor RN Outcome: Progressing 05/09/2024 1046 by Mc Proctor RN Outcome: Progressing Goal: Performs ADL's with improved pain control throughout shift 05/09/2024 1047 by Mc Proctor RN Outcome: Progressing 05/09/2024 1046 by Mc Proctor RN Outcome: Progressing Goal: Participates in PT with improved pain control throughout the shift 05/09/2024 1047 by Mc Proctor RN Outcome: Progressing 05/09/2024 1046 by Mc Proctor RN Outcome: Progressing Goal: Free from opioid side effects throughout the shift 05/09/2024 1047 by Mc Proctor RN Outcome: Progressing 05/09/2024 1046 by Mc Proctor RN Outcome: Progressing Goal: Free from acute confusion related to pain meds throughout the shift 05/09/2024 1047 by Mc Proctor RN Outcome: Progressing 05/09/2024 1046 by Mc Proctor RN Outcome: Progressing Problem: Fall/Injury Goal: Use assistive devices by end of the shift 05/09/2024 1047 by Mc Proctor RN Outcome: Progressing 05/09/2024 1046 by Mc Proctor RN Outcome: Progressing Goal: Pace activities to prevent fatigue by end of the shift 05/09/2024 1047 by Mc Proctor RN Outcome: Progressing 05/09/20241045 by Mc Proctor RN Outcome: Progressing The patient's goals for the shift include The clinical goals for the shift include Pt's pain will be controlled throughout shift. The patient's goals for the shift include The clinical goals for the shift include Patient will have good pain cotrol by end of shift Problem: Pain Goal: Walks with improved pain control throughout the shift Outcome: Not Progressing Problem: Skin Goal: Decreased wound size/increased tissue granulation at next dressing change Outcome: Progressing Goal: Participates in plan/prevention/treatment measures Outcome: Progressing Goal: Prevent/manage excess moisture Outcome: Progressing Goal: Prevent/minimize sheer/friction injuries Outcome: Progressing Goal: Promote/optimize nutrition Outcome: Progressing Goal: Promote skin healing Outcome: Progressing Problem: Pain Goal: Takes deep breaths with improved pain control throughout the shift Outcome: Progressing Goal: Turns in bed with improved pain control throughout the shift Outcome: Progressing Goal: Performs ADL's with improved pain control throughout shift Outcome: Progressing Goal: Participates in PT with improved pain control throughout the shift Outcome: Progressing Goal: Free from opioid side effects throughout the shift Outcome: Progressing Goal: Free from acute confusion related to pain meds throughout the shift Outcome: Progressing Problem: Fall/Injury Goal: Use assistive devices by end of the shift Outcome: Progressing Goal: Pace activities to prevent fatigue by end of the shift Outcome: Progressing Problem: Pain - Adult Goal: Verbalizes/displays adequate comfort level or baseline comfort level Outcome: Met Problem: Safety - Adult Goal: Free from fall injury Outcome: Met Problem: Chronic Conditions and Co-morbidities Goal: Patient's chronic conditions and co-morbidity symptoms are monitored and maintained or improved Outcome: Met Problem: Nutrition Goal: Nutrient intake appropriate for maintaining nutritional needs Outcome: Met Problem: Fall/Injury Goal: Not fall by end of shift Outcome: Met Goal: Be free from injury by end of the shift Outcome: Met Goal: Verbalize understanding of personal risk factors for fall in the hospital Outcome: Met Goal: Verbalize understanding of risk factor reduction measures to prevent injury from fall in the home Outcome: Met Problem: Pain Goal: Walks with improved pain control throughout the shift Outcome: Not Progressing Problem: Pain - Adult Goal: Verbalizes/displays adequate comfort level or baseline comfort level Outcome: Progressing Problem: Safety - Adult Goal: Free from fall injury Outcome: Progressing Problem: Chronic Conditions and Co-morbidities Goal: Patient's chronic conditions and co-morbidity symptoms are monitored and maintained or improved Outcome: Progressing Problem: Nutrition Goal: Nutrient intake appropriate for maintaining nutritional needs Outcome: Progressing Problem: Skin Goal: Decreased wound size/increased tissue granulation at next dressing change Outcome: Progressing Goal: Participates in plan/prevention/treatment measures Outcome: Progressing Goal: Prevent/manage excess moisture Outcome: Progressing Goal: Prevent/minimize sheer/friction injuries Outcome: Progressing Goal: Promote/optimize nutrition Outcome: Progressing Goal: Promote skin healing Outcome: Progressing Problem: Pain Goal: Takes deep breaths with improved pain control throughout the shift Outcome: Progressing Goal: Turns in bed with improved pain control throughout the shift Outcome: Progressing Goal: Walks with improved pain control throughout the shift Outcome: Progressing Goal: Performs ADL's with improved pain control throughout shift Outcome: Progressing Goal: Participates in PT with improved pain control throughout the shift Outcome: Progressing Goal: Free from opioid side effects throughout the shift Outcome: Progressing Goal: Free from acute confusion related to pain meds throughout the shift Outcome: Progressing Problem: Fall/Injury Goal: Not fall by end of shift Outcome: Progressing Goal: Be free from injury by end of the shift Outcome: Progressing Goal: Verbalize understanding of personal risk factors for fall in the hospital Outcome: Progressing Goal: Verbalize understanding of risk factor reduction measures to prevent injury from fall in the home Outcome: Progressing Goal: Use assistive devices by end of the shift Outcome: Progressing Goal: Pace activities to prevent fatigue by end of the shift Outcome: Progressing The patient's goals for the shift include The clinical goals for the shift include Pt's pain will be controlled throughout shift. The patient's goals for the shift include The clinical goals for the shift include Patient will have good pain control by end of shift Problem: Pain - Adult Goal: Verbalizes/displays adequate comfort level or baseline comfort level 05/07/20242258 by Lissa Ellison RN Outcome: Progressing 05/07/20242257 by Lissa Ellison RN Outcome: Progressing Problem: Safety - Adult Goal: Free from fall injury 05/07/20242258 by Lissa Ellison RN Outcome: Progressing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 anteriorly larger flap posteriorly. In order to remove the sebastian from the femur we removed the 3 screws from the distal tibia we used an oscillating saw to cut the anterior portion of the distal tibia and unroofed the nail we then bent the knee through the old fusion and remove the nail in its entirety. We then had access to the femur we used an oscillating saw to cut the femur at the metaphyseal diaphyseal junction and that we had good flaps posteriorly and anteriorly at this level. The patella was nonviable so we could not use a [place] G[place] type amputation. But we did preserve the quadricep tendon and the hamstrings posteriorly. We then went posteriorly and isolated the posterior neurovascular structures. We isolated the femoral artery and femoral vein and we used Zara clamps to double ligate the artery and vein we used a 0 Vicryl as a stick tie and a 0 silk as a regular tie double ligating each of these vessels we identified the tibial nerve as well as the common peroneal nerve we pulled cut them short with the Bovie. We then went through the hamstrings posteriorly and created a posterior flap removing the leg above the knee. We then released the tourniquet at this time no major bleeding was encountered we copiously irrigated out the area we created 2 drill holes anteriorly in the anterior cortex of the distal femur just above the amputation site we used #5 Ethibond suture to bring the posterior flap to the anterior distal femur through the drill holes. We then oversewed the posterior flap to the quadricep muscle tendon for which covered the neurovascular bundle very well. We then closed the skin with 0 Prolene suture and 2-0 Prolene. Sterile dressings were applied patient was placed in a Prevena dressing and an Sebastian wrap. Patient tolerated this procedure well. At this time the plastic surgeons team was coming in to change the dressing on the left thigh from the previous flap harvest site which was granulating and. Patient would this point be on the orthopedic service with help from plastic surgery and medical service. Patient tolerated procedure well Complications: None; patient tolerated the procedure well. Disposition: PACU - hemodynamically stable. Condition: stable Additional Details: Attending Attestation: I was present and scrubbed for the entire procedure. Cruz Goodman The clinical goals for the shift include Pt will remain HDS and free from fall/injury Problem: Pain - Adult Goal: Verbalizes/displays adequate comfort level or baseline comfort level Outcome: Progressing Problem: Safety - Adult Goal: Free from fall injury Outcome: Progressing Problem: Chronic Conditions and Co-morbidities Goal: Patient's chronic conditions and co-morbidity symptoms are monitored and maintained or improved Outcome: Progressing Problem: Nutrition Goal: Nutrient intake appropriate for maintaining nutritional needs Outcome: Progressing Problem: Skin Goal: Decreased wound size/increased tissue granulation at next dressing change Outcome: Progressing Goal: Participates in plan/prevention/treatment measures Outcome: Progressing Goal: Prevent/manage excess moisture Outcome: Progressing Goal: Prevent/minimize sheer/friction injuries Outcome: Progressing Goal: Promote/optimize nutrition Outcome: Progressing Goal: Promote skin healing Outcome: Progressing Problem: Pain Goal: Takes deep breaths with improved pain control throughout the shift Outcome: Progressing Goal: Turns in bed with improved pain control throughout the shift Outcome: Progressing Goal: Walks with improved pain control throughout the shift Outcome: Progressing Goal: Performs ADL's with improved pain control throughout shift Outcome: Progressing Goal: Participates in PT with improved pain control throughout the shift Outcome: Progressing Goal: Free from opioid side effects throughout the shift Outcome: Progressing Goal: Free from acute confusion related to pain meds throughout the shift Outcome: Progressing Problem: Fall/Injury Goal: Not fall by end of shift Outcome: Progressing Goal: Be free from injury by end of the shift Outcome: Progressing Goal: Verbalize understanding of personal risk factors for fall in the hospital Outcome: Progressing Goal: Verbalize understanding of risk factor reduction measures to prevent injury from fall in the home Outcome: Progressing Goal: Use assistive devices by end of the shift Outcome: Progressing Goal: Pace activities to prevent fatigue by end of the shift Outcome: Progressing Problem: Pain - Adult Goal: Verbalizes/displays adequate comfort level or baseline comfort level Outcome: Progressing Problem: Safety - Adult Goal: Free from fall injury Outcome: Progressing Problem: Chronic Conditions and Co-morbidities Goal: Patient's chronic conditions and co-morbidity symptoms are monitored and maintained or improved Outcome: Progressing Problem: Nutrition Goal: Nutrient intake appropriate for maintaining nutritional needs Outcome: Progressing Problem: Skin Goal: Decreased wound size/increased tissue granulation at next dressing change Outcome: Progressing Flowsheets (Taken 05/04/2024 1040) Decreased wound size/increased tissue granulation at next dressing change: Promote sleep for wound healing Protective dressings over bony prominences Goal: Participates in plan/prevention/treatment measures Outcome: Progressing Flowsheets (Taken 05/04/2024 1040) Participates in plan/prevention/treatment measures: Discuss with provider PT/OT consult Elevate heels Goal: Prevent/manage excess moisture Outcome: Progressing Flowsheets (Taken 05/04/2024 1040) Prevent/manage excess moisture: Monitor for/manage infection if present Cleanse incontinence/protect with barrier cream Goal: Prevent/minimize sheer/friction injuries Outcome: Progressing Flowsheets (Taken 05/04/2024 1040) Prevent/minimize sheer/friction injuries: Use pull sheet Complete micro-shifts as needed if patient unable. Adjust patient position to relieve pressure points, not a full turn Increase activity/out of bed for meals Goal: Promote/optimize nutrition Outcome: Progressing Flowsheets (Taken 05/04/2024 1040) Promote/optimize nutrition: Monitor/record intake including meals Assist with feeding Consume > 50% meals/supplements Offer water/supplements/favorite foods Goal: Promote skin healing Outcome: Progressing Flowsheets (Taken 05/04/2024 1040) Promote skin healing: Turn/reposition every 2 hours/use positioning/transfer devices Protective dressings over bony prominences Assess skin/pad under line(s)/device(s) Problem: Skin Goal: Participates in plan/prevention/treatment measures Outcome: Progressing Flowsheets (Taken 05/04/2024 1040) Participates in plan/prevention/treatment measures: Discuss with provider PT/OT consult Elevate heels Problem: Skin Goal: Prevent/manage excess moisture Outcome: Progressing Flowsheets (Taken 05/04/2024 1040) Prevent/manage excess moisture: Monitor for/manage infection if present Cleanse incontinence/protect with barrier cream Problem: Skin Goal: Prevent/minimize sheer/friction injuries Outcome: Progressing Flowsheets (Taken 05/04/2024 1040) Prevent/minimize sheer/friction injuries: Use pull sheet Complete micro-shifts as needed if patient unable. Adjust patient position to relieve pressure points, not a full turn Increase activity/out of bed for meals Problem: Pain - Adult Goal: Verbalizes/displays adequate comfort level or baseline comfort level Outcome: Progressing Problem: Safety - Adult Goal: Free from fall injury Outcome: Progressing Problem: Chronic Conditions and Co-morbidities Goal: Patient's chronic conditions and co-morbidity symptoms are monitored and maintained or improved Outcome: Progressing Problem: Nutrition Goal: Nutrient intake appropriate for maintaining nutritional needs Outcome: Progressing Problem: Skin Goal: Decreased wound size/increased tissue granulation at next dressing change Outcome: Progressing Flowsheets (Taken 05/03/20242137) Decreased wound size/increased tissue granulation at next dressing change: Protective dressings over bony prominences Goal: Participates in plan/prevention/treatment measures Outcome: Progressing Flowsheets (Taken 05/03/20242137) Participates in plan/prevention/treatment measures: Discuss with provider PT/OT consult Goal: Prevent/manage excess moisture Outcome: Progressing Flowsheets (Taken 05/03/20242137) Prevent/manage excess moisture: Cleanse incontinence/protect with barrier cream Monitor for/manage infection if present Goal: Prevent/minimize sheer/friction injuries Outcome: Progressing Flowsheets (Taken 05/03/20242137) Prevent/minimize sheer/friction injuries: Use pull sheet Goal: Promote/optimize nutrition Outcome: Progressing Flowsheets (Taken 05/03/20242137) Promote/optimize nutrition: Monitor/record intake including meals Goal: Promote skin healing Outcome: Progressing Flowsheets (Taken 05/03/20242137) Promote skin healing: Assess skin/pad under line(s)/device(s) Protective dressings over bony prominences Problem: Pain Goal: Takes deep breaths with improved pain control throughout the shift Outcome: Progressing Goal: Turns in bed with improved pain control throughout the shift Outcome: Progressing Goal: Walks with improved pain control throughout the shift Outcome: Progressing Goal: Performs ADL's with improved pain control throughout shift Outcome: Progressing Goal: Participates in PT with improved pain control throughout the shift Outcome: Progressing Goal: Free from opioid side effects throughout the shift Outcome: Progressing Goal: Free from acute confusion related to pain meds throughout the shift Outcome: Progressing Problem: Fall/Injury Goal: Not fall by end of shift Outcome: Progressing Goal: Be free from injury by end of the shift Outcome: Progressing Goal: Verbalize understanding of personal risk factors for fall in the hospital Outcome: Progressing Goal: Verbalize understanding of risk factor reduction measures to prevent injury from fall in the home Outcome: Progressing Goal: Use assistive devices by end of the shift Outcome: Progressing Goal: Pace activities to prevent fatigue by end of the shift Outcome: Progressing The clinical goals for the shift include Pt will remain free from falls/injury throughout shift Problem: Pain - Adult Goal: Verbalizes/displays adequate comfort level or baseline comfort level Outcome: Progressing Problem: Safety - Adult Goal: Free from fall injury Outcome: Progressing Problem: Chronic Conditions and Co-morbidities Goal: Patient's chronic conditions and co-morbidity symptoms are monitored and maintained or improved Outcome: Progressing Problem: Nutrition Goal: Nutrient intake appropriate for maintaining nutritional needs Outcome: Progressing Problem: Skin Goal: Decreased wound size/increased tissue granulation at next dressing change Outcome: Progressing Goal: Participates in plan/prevention/treatment measures Outcome: Progressing Goal: Prevent/manage excess moisture Outcome: Progressing Goal: Prevent/minimize sheer/friction injuries Outcome: Progressing Goal: Promote/optimize nutrition Outcome: Progressing Goal: Promote skin healing Outcome: Progressing Problem: Pain Goal: Takes deep breaths with improved pain control throughout the shift Outcome: Progressing Goal: Turns in bed with improved pain control throughout the shift Outcome: Progressing Goal: Walks with improved pain control throughout the shift Outcome: Progressing Goal: Performs ADL's with improved pain control throughout shift Outcome: Progressing Goal: Participates in PT with improved pain control throughout the shift Outcome: Progressing Goal: Free from opioid side effects throughout the shift Outcome: Progressing Goal: Free from acute confusion related to pain meds throughout the shift Outcome: Progressing Problem: Fall/Injury Goal: Not fall by end of shift Outcome: Progressing Goal: Be free from injury by end of the shift Outcome: Progressing Goal: Verbalize understanding of personal risk factors for fall in the hospital Outcome: Progressing Goal: Verbalize understanding of risk factor reduction measures to prevent injury from fall in the home Outcome: Progressing Goal: Use assistive devices by end of the shift Outcome: Progressing Goal: Pace activities to prevent fatigue by end of the shift Outcome: Progressing The patient's goals for the shift include The clinical goals for the shift include patient will remain safe and free from any injuries Problem: Pain - Adult Goal: Verbalizes/displays adequate comfort level or baseline comfort level Outcome: Progressing Problem: Safety - Adult Goal: Free from fall injury Outcome: Progressing Problem: Chronic Conditions and Co-morbidities Goal: Patient's chronic conditions and co-morbidity symptoms are monitored and maintained or improved Outcome: Progressing Problem: Skin Goal: Decreased wound size/increased tissue granulation at next dressing change Outcome: Progressing Flowsheets (Taken 05/02/2024 8114) Decreased wound size/increased tissue granulation at next dressing change: Protective dressings over bony prominences Utilize specialty bed per algorithm Goal: Participates in plan/prevention/treatment measures Outcome: Progressing Flowsheets (Taken 05/01/20241457 by Ravinder Pena RN) Participates in plan/prevention/treatment measures: Discuss with provider PT/OT consult Goal: Prevent/manage excess moisture Outcome: Progressing Flowsheets (Taken 05/02/20241427) Prevent/manage excess moisture: Moisturize dry skin Cleanse incontinence/protect with barrier cream Follow provider orders for dressing changes Goal: Prevent/minimize sheer/friction injuries Outcome: Progressing Flowsheets (Taken 05/02/20241427) Prevent/minimize sheer/friction injuries: Turn/reposition every 2 hours/use positioning/transfer devices Utilize specialty bed per algorithm Goal: Promote/optimize nutrition Outcome: Progressing Flowsheets (Taken 05/02/20241427) Promote/optimize nutrition: Consume > 50% meals/supplements Offer water/supplements/favorite foods Goal: Promote skin healing Outcome: Progressing Flowsheets (Taken 05/02/20241427) Promote skin healing: Assess skin/pad under line(s)/device(s) Rotate device position/do not position patient on device Problem: Pain - Adult Goal: Verbalizes/displays adequate comfort level or baseline comfort level Outcome: Progressing The patient's goals for the shift include The clinical goals for the shift include patient to remain hemodynamically stable Problem: Pain - Adult Goal: Verbalizes/displays adequate comfort level or baseline comfort level Outcome: Progressing Problem: Safety - Adult Goal: Free from fall injury Outcome: Progressing Problem: Chronic Conditions and Co-morbidities Goal: Patient's chronic conditions and co-morbidity symptoms are monitored and maintained or improved Outcome: Progressing Problem: Nutrition Goal: Nutrient intake appropriate for maintaining nutritional needs Outcome: Progressing Problem: Skin Goal: Decreased wound size/increased tissue granulation at next dressing change 05/01/20241457 by Ravinder Pena RN Flowsheets (Taken 05/01/20241457) Decreased wound size/increased tissue granulation at next dressing change: Promote sleep for wound healing 05/01/20241456 by Ravinder Pena RN Outcome: Progressing Goal: Participates in plan/prevention/treatment measures 05/01/20241457 by Ravinder Pena RN Flowsheets (Taken 05/01/20241457) Participates in plan/prevention/treatment measures: Discuss with provider PT/OT consult 05/01/20241456 by Ravinder Pena RN Outcome: Progressing Goal: Prevent/manage excess moisture 05/01/20241457 by Ravinder Pena RN Flowsheets (Taken 05/01/20241457) Prevent/manage excess moisture: Monitor for/manage infection if present 05/01/20241456 by Ravinder Pena RN Outcome: Progressing Goal: Prevent/minimize sheer/friction injuries 05/01/20241457 by Ravinder Pena RN Flowsheets (Taken 05/01/20241457) Prevent/minimize sheer/friction injuries: Increase activity/out of bed for meals 05/01/20241456 by Ravinder Pena RN Outcome: Progressing Goal: Promote/optimize nutrition 05/01/20241457 by Ravinder Pena RN Flowsheets (Taken 05/01/20241457) Promote/optimize nutrition: Assist with feeding 05/01/20241456 by Ravinder Pena RN Outcome: Progressing Goal: Promote skin healing 05/01/20241457 by Ravinder Pena RN Flowsheets (Taken 05/01/20241457) Promote skin healing: Turn/reposition every 2 hours/use positioning/transfer devices 05/01/20241456 by Ravinder Pena RN Outcome: Progressing Problem: Pain Goal: Takes deep breaths with improved pain control throughout the shift Outcome: Progressing Goal: Turns in bed with improved pain control throughout the shift Outcome: Progressing Goal: Walks with improved pain control throughout the shift Outcome: Progressing Goal: Performs ADL's with improved pain control throughout shift Outcome: Progressing Goal: Participates in PT with improved pain control throughout the shift Outcome: Progressing Goal: Free from opioid side effects throughout the shift Outcome: Progressing Goal: Free from acute confusion related to pain meds throughout the shift Outcome: Progressing Problem: Fall/Injury Goal: Not fall by end of shift Outcome: Progressing Goal: Be free from injury by end of the shift Outcome: Progressing Goal: Verbalize understanding of personal risk factors for fall in the hospital Outcome: Progressing Goal: Verbalize understanding of risk factor reduction measures to prevent injury from fall in the home Outcome: Progressing Goal: Use assistive devices by end of the shift Outcome: Progressing Goal: Pace activities to prevent fatigue by end of the shift Outcome: Progressing The patient's goals for the shift include The clinical goals for the shift include pt will remain HDS Problem: Pain - Adult Goal: Verbalizes/displays adequate comfort level or baseline comfort level Outcome: Progressing Problem: Safety - Adult Goal: Free from fall injury Outcome: Progressing Problem: Chronic Conditions and Co-morbidities Goal: Patient's chronic conditions and co-morbidity symptoms are monitored and maintained or improved Outcome: Progressing Problem: Nutrition Goal: Nutrient intake appropriate for maintaining nutritional needs Outcome: Progressing Problem: Skin Goal: Decreased wound size/increased tissue granulation at next dressing change 05/01/20241457 by Ravinder Pena RN Flowsheets (Taken 05/01/20241457) Decreased wound size/increased tissue granulation at next dressing change: Promote sleep for wound healing 05/01/20241456 by Ravinder Pena RN Outcome: Progressing Goal: Participates in plan/prevention/treatment measures 05/01/20241457 by Ravinder Pena RN Flowsheets (Taken 05/01/20241457) Participates in plan/prevention/treatment measures: Discuss with provider PT/OT consult 05/01/20241456 by Ravinder Pena RN Outcome: Progressing Goal: Prevent/manage excess moisture 05/01/20241457 by Ravinder Pena RN Flowsheets (Taken 05/01/20241457) Prevent/manage excess moisture: Monitor for/manage infection if present 05/01/20241456 by Ravinder Pena RN Outcome: Progressing Goal: Prevent/minimize sheer/friction injuries 05/01/20241457 by Ravinder Pena RN Flowsheets (Taken 05/01/20241457) Prevent/minimize sheer/friction injuries: Increase activity/out of bed for meals 05/01/20241456 by Ravinder Pena RN Outcome: Progressing Goal: Promote/optimize nutrition 05/01/20241457 by Ravinder Pena RN Flowsheets (Taken 05/01/20241457) Promote/optimize nutrition: Assist with feeding 05/01/20241456 by Ravinder Pena RN Outcome: Progressing Goal: Promote skin healing 05/01/20241457 by Ravinder Pena RN Flowsheets (Taken 05/01/20241457) Promote skin healing: Turn/reposition every 2 hours/use positioning/transfer devices 05/01/20241456 by Ravinder Pena RN Outcome: Progressing Problem: Pain Goal: Takes deep breaths with improved pain control throughout the shift Outcome: Progressing Goal: Turns in bed with improved pain control throughout the shift Outcome: Progressing Goal: Walks with improved pain control throughout the shift Outcome: Progressing Goal: Performs ADL's with improved pain control throughout shift Outcome: Progressing Goal: Participates in PT with improved pain control throughout the shift Outcome: Progressing Goal: Free from opioid side effects throughout the shift Outcome: Progressing Goal: Free from acute confusion related to pain meds throughout the shift Outcome: Progressing Problem: Fall/Injury Goal: Not fall by end of shift Outcome: Progressing Goal: Be free from injury by end of the shift Outcome: Progressing Goal: Verbalize understanding of personal risk factors for fall in the hospital Outcome: Progressing Goal: Verbalize understanding of risk factor reduction measures to prevent injury from fall in the home Outcome: Progressing Goal: Use assistive devices by end of the shift Outcome: Progressing Goal: Pace activities to prevent fatigue by end of the shift Outcome: Progressing The patient's goals for the shift include The clinical goals for the shift include pt will remain HDS Problem: Pain - Adult Goal: Verbalizes/displays adequate comfort level or baseline comfort level Outcome: Progressing Problem: Safety - Adult Goal: Free from fall injury Outcome: Progressing Problem: Chronic Conditions and Co-morbidities Goal: Patient's chronic conditions and co-morbidity symptoms are monitored and maintained or improved Outcome: Progressing Problem: Nutrition Goal: Nutrient intake appropriate for maintaining nutritional needs Outcome: Progressing Problem: Skin Goal: Decreased wound size/increased tissue granulation at next dressing change Outcome: Progressing Goal: Participates in plan/prevention/treatment measures Outcome: Progressing Goal: Prevent/manage excess moisture Outcome: Progressing Goal: Prevent/minimize sheer/friction injuries Outcome: Progressing Goal: Promote/optimize nutrition Outcome: Progressing Goal: Promote skin healing Outcome: Progressing Problem: Pain Goal: Takes deep breaths with improved pain control throughout the shift Outcome: Progressing Goal: Turns in bed with improved pain control throughout the shift Outcome: Progressing Goal: Walks with improved pain control throughout the shift Outcome: Progressing Goal: Performs ADL's with improved pain control throughout shift Outcome: Progressing Goal: Participates in PT with improved pain control throughout the shift Outcome: Progressing Goal: Free from opioid side effects throughout the shift Outcome: Progressing Goal: Free from acute confusion related to pain meds throughout the shift Outcome: Progressing Problem: Fall/Injury Goal: Not fall by end of shift Outcome: Progressing Goal: Be free from injury by end of the shift Outcome: Progressing Goal: Verbalize understanding of personal risk factors for fall in the hospital Outcome: Progressing Goal: Verbalize understanding of risk factor reduction measures to prevent injury from fall in the home Outcome: Progressing Goal: Use assistive devices by end of the shift Outcome: Progressing Goal: Pace activities to prevent fatigue by end of the shift Outcome: Progressing Problem: Pain - Adult Goal: Verbalizes/displays adequate comfort level or baseline comfort level Outcome: Progressing The patient's goals for the shift include The clinical goals for the shift include patient to remain hemodynamically stable The patient's goals for the shift include pain mangement The clinical goals for the shift include pt will remain HDS Over the shift, the patient did Problem: Pain - Adult Goal: Verbalizes/displays adequate comfort level or baseline comfort level Outcome: Progressing Problem: Safety - Adult Goal: Free from fall injury Outcome: Progressing Problem: Chronic Conditions and Co-morbidities Goal: Patient's chronic conditions and co-morbidity symptoms are monitored and maintained or improved Outcome: Progressing Problem: Nutrition Goal: Nutrient intake appropriate for maintaining nutritional needs Outcome: Progressing make progress toward the following goals. Problem: Pain - Adult Goal: Verbalizes/displays adequate comfort level or baseline comfort level 04/30/2024 0123 by Shivam Faulkner RN Outcome: Progressing 04/30/2024 0123 by Shivam Faulkner RN Outcome: Progressing The patient's goals for the shift include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 Impression(s) from Imaging Studies Femur X-Ray 04/25/24 15:24 IMPRESSION: Large gaseous lucency along the left lateral hip, compatible with abscess. Surgical consultation is recommended. Reading Location: [facility] Tibia/Fibula X-Ray 04/25/24 15:24 IMPRESSION: Large soft tissue mass overlying the chronic right distal anterior tibial fracture with gaseous lucency along the cranial aspect, compatible with developing infection/abscess. Surgical consultation recommended. Reading Location: [facility] Femur X-Ray 04/25/24 15:51 IMPRESSION: No obvious soft tissue lesion. 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 Prescriptions: No Action levothyroxine 50 mcg tablet 50 mcg PO DAILY clonidine HCl 0.1 mg tablet 0.1 mg PO Q12H famotidine 20 mg tablet 20 mg PO DAILY gabapentin 600 MG tablet 600 mg PO TID Patient Comments: PT TAKES 1-3X DAILY sertraline 100 MG tablet 150 mg PO DAILY methadone 10 MG/ML concentrate 90 mg PO DAILY bupropion HCl 100 mg tablet 150 mg PO BID levetiracetam [Keppra] PO BID promethazine 25 mg tablet 25 mg PO TID PRN (Reason: nausea and vomiting) clonazepam [Klonopin] 0.5 mg tablet 0.5 mg PO TID PRN (Reason: anxiety) mirtazapine [Remeron] 15 mg tablet 7.5 mg PO QHS sulfamethoxazole-trimethoprim [Bactrim DS] 800-160 mg tablet 1 tab PO Q12H 14 Days Qty: 28 0RF Primary Care Provider: Francisco Elmore Referrals: Francisco Elmore MD [Primary Care Provider] - Print Language: Angolan Disposition Disposition: Acute Care Hospital Discharge Location: [facility] What to do if you have Problems For any increased pain, shortness of breath, bleeding, nausea or vomiting, chestpain, or any unexpected problems, contact your Primary Care Provider. Call [facility] ([phone]) or report to the closest Emergency Room. Call 911 if necessary. 04/25/24 1810 <Electronically signed by Pan Abarca MD> Cosigner Signature (if applicable): CC: Dr. Francisco Elmore MD ~ Signed [facility] Work Phone: [phone] Discharge summary [facility] Medical Records Department [address] [place] [address] Emergency Department Summary 04/25/24 MR#: [id number] Acct: [id number] Name: DEIDRA DE LA CRUZ Rep #:[id number] : 1970 54 From: Pan Abarca MD PCP: Dr. Francisco Elmore MD Status:REG ER Location: ED HPI History of Present Illness Chief Complaint: Wound Informant: patient and EMS Narrative Narrative: 54-year-old female had plastic surgery at [facility] 2 or 3 weeks ago with a skin graft on her right lower leg that was taken from her left thigh for a woundthat would not heal. She is supposed to follow-up tomorrow on Friday, and she states she has no transportation which is the main reason thatrobert decided to come here to this ER by EMS on Friday. She states that since she was dischargedhome from the hospital, she has not been able to bend her knee at all. She states she assumes they knew that when they sent her home, but she could bend itbefore she went to the hospital to have surgery. She was at home by herself, she states she has an autistic 22-year-old who helps her sometimes, and she has had no home nursing or home health care. However she has been having a hard time performing ADLs at home since she cannot get around in a wheelchair since she cannot bend her right knee. When asked if they offered her rehab she statesno not that she knows of. She had a wound VAC on the wound of her left thigh which was open before she left the hospital, she is not sure if it was post to be that way or not, but the wound VAC stopped functioning correctly at least a week ago so she has basically left it off, and she has brought herself to no medical attention for any of this until today. Additionally since she cannot bend her knee and sit in her wheelchair she has been laying on checks a lot, andher right buttock has been hurting her and seeping. She denies any fevers, chills, systemic symptoms. She has a lot of numbness around her right knee and other areas of her right lower leg, she states that hurts some, but she does nothave any numbness in her feet. She states her plastic surgeon was Dr. Mac. [facility] Home Medications ?Medication ?Instructions ?Recorded ?Last Taken ?Type gabapentin 600 mg tablet 600 mg PO TID 01/04/19 Unkno wn History methadone 10 mg/mL oral concentrate 90 mg PO DAILY Unknown History sertraline 100 mg tablet 150 mg PO DAILY 01/04/19 Unk nown History clonidine HCl 0.1 mg tablet 0.1 mg PO Q12H 05/13/22 Un known History famotidine 20 mg tablet 20 mg PO DAILY 05/13/22 Unkn own History levothyroxine 50 mcg tablet 50 mcg PO DAILY 05/13/22 U nknown History bupropion HCl 100 mg tablet 150 mg PO BID 11/28/22 Unk nown History clonazepam 0.5 mg tablet (Klonopin) 0.5 mg PO TID PRN anxiety 11/28/22 Unknown History levetiracetam PO BID 11/28/22 Unknown Hist ory mirtazapine 15 mg tablet (Remeron) 7.5 mg PO QHS 11/28 Unknown History promethazine 25 mg tablet 25 mg PO TID PRN nausea and 11/28/22 Unknown History vomiting sulfamethoxazole 800 1 tab PO Q12H 14 days #28 ta bs 11/28/22 Unknown Rx mg-trimethoprim 160 mg tablet (Bactrim DS) Allergy/AdvReac Type Severity Reaction Status Date / Time Penicillins (PCN) Allergy Unknown Verified 04/25/24 15:03 Surgical History (Updated 05/13/22 @ 15:[address] Nicolas Ramírez DO) History of hip surgery History of facial surgery Surgical History unable to obtain Social History household members: family Smoking Status: Current every day smoker tobacco type: cigarettes alcohol intake: never ROS ROS ED Constitutional Constitutional ED: Denies chills or fever(s) Eyes Eyes: Denies change in vision or diplopia ENT ENT ED: Denies rhinorrhea or sore throat Cardiovascular Cardiovascular: Denies chest pain or palpitations Respiratory/Chest Respiratory/Chest: Denies cough or dyspnea Gastrointestinal Gastrointestinal: Denies abdominal pain, diarrhea, nausea or vomiting Genitourinary Genitourinary ED: Denies dysuria or hematuria Musculoskeletal Musculoskeletal: Reports as per HPI, difficulty walking, extremity pain and other Details: Right buttock pain, no other back pain ; Denies neck pain Integumentary Reports wounds; Denies abscess Neurologic Neurologic: Reports paresthesias RLE (In the knee and lower leg but not distallyin the foot); Denies headache(s) or weakness Psychiatric Psychiatric: Denies anxiety or suicidal thoughts EXAM Physical Exam Const Vital Signs: 04/25/24 15:03 04/25/24 15:32 04/25/24 16:46 Temperature 98.7 F 98.7 F Temperature Source Oral Oral Pulse Rate 86 86 84 Respiratory Rate 14 14 16 Blood Pressure 155/66 H 155/66 H Blood Pressure Mean 95 95 Pulse Ox 100 100 99 Oxygen Delivery Method Room Air Room Air 04/25/24 16:46 Temperature 98.4 F Temperature Source Oral Pulse Rate 84 Respiratory Rate 16 Blood Pressure 152/85 H Blood Pressure Mean 107 Pulse Ox 100 Oxygen Delivery Method Positive well nourished and well developed General Appearance ED: well developed and NAD HEENT Reports moist mucous membranes normocephalic and atraumatic Eyes PERRL and EOMs intact bilaterally Neck full ROM and supple Resp normal respiratory effort and clear to auscultation bilaterally Cardio regular rate, regular rhythm and no murmurs Rate: Negative for tachycardic GI non-tender and non-distended Auscultation: normoactive bowel sounds Palpation: soft Narrative: Perineum is without any necrosis or subcutaneous emphysema, but she has some superficial skin sloughing and erythema that is tender and moist throughout the right buttock and posterior thigh, it is less significant and less tender on theleft posterior thigh. There is no abscess posteriorly. Back/Spine no CVA tenderness General Back: other FROM Extremity normal to inspection Extremity Narrative: Some mild tenderness around the erythema of the wound left proximal lateral thigh. Large open woundhere, there are sutures intact surgically and many of them appear to have ruptured creating an openwound that is approximately 12 cm long. I see no necrotic tissue in it. On her right leg, she has ablack large swollen graft/flap on her right morgan with some purulent discharge coming out around themedial proximal aspect of it. She states it does not really hurt to press on the graft but it is sort of insensate. There is only mild tenderness around it proximally and there is a lot of erythema that goes from the distal aspect of this all the way up past the knee. Anterior at the knee, there is swelling, chronically thickened tissue, and a deep cutaneous sulcus without discharge. She cannot move her knee although she is trying and flexing the quads. It is in full extension. She can feel light touch distally in her feet. The skin is thickened and not able to feel pulses but her cap refill is brisk 2- 3 seconds. General Extremety ED: Yes tenderness; Negative for edema or pulses abnormal General Extremity: Negative for edema or pulses abnormal Neuro oriented x3, CN's II-XII intact bilaterally and no sensory deficits noted Sensorium / Orientation: awake and alert Motor Exam: strength 5/5 throughout Skin no wounds Skin Narrative: Wounds of both lower extremities and erythema, blanching, no other rashes, see above MDM MDM MDM Narrative Medical decision making narrative: Patient appears to have cellulitis in her right posterior thigh and buttock, a possible infection of her flap, erythema that extends proximally, and a possibleinfection of her open dehisced left thigh donor site as well. I obtained labs, the only secretions that I can obviously get a culture of hisof the right lowerleg flap, so we sent a culture of that and gave her a dose of vancomycin. Labs are noted which include a leukocytosis, kidney function and electrolytes are normal, her blood sugar is 127 which is good. I obtained x-rays of the affectedareas, and my interpretation is as follows: The left thigh 4 view series shows that she had acetabulum surgery and her femoral head appears to be s urgically gone, creating a chronic nonworking joint, and there is a paucity of tissue laterally that radiology read has compatible with an abscess but the location ofthis lucency is consistent with the open wound that is open to the outside world, rather than an abscess. Right femur 4 views and right tibia- fibula 3 views show an intramedullary sebastian that goes through the knee joint and is securedinthe proximal tibia. Also there appears to be a chronic fracture of the tibiawhere the patient's flap is, and as the radiologist noted, the soft tissue mass with subcutaneous air is the flap. There isnot air tracking in fascial planes to suggest necrotizing fasciitis. Awaiting physician from [facility] to accept the patient in transfer given the fact that she just had surgery and theyknow this patient's wounds to some degree. Discussed with orthopedics Dr. Aguilar, who advised that given the multispecialtynature of her case,she will probably need Ortho, plastics, medicine, and infectious disease to see her, he recommends sending to the emergency departmentso I spoke with Dr. Patel there who accepts the patient. She is stable to go byApplauze. Lab Data Attestation: I reviewed the patient's lab results. Labs: Laboratory Results - last 24 hr 04/25/24 15:20 WBC 14.7 H RBC 3.83 L Hgb 9.3 L Hct 31.4 L MCV 82.0 MCH 24.3 L MCHC 29.6 L RDW Std Deviation 52.3 H RDW Coeff of Mckayla 17.7 H Plt Count 759 H* MPV 10.0 Immature Gran % (Auto) 0.700 Neut % (Auto) 59.6 Lymph % (Auto) 27.9 Harnett % (Auto) 8.9 Eos % (Auto) 2.3 Baso % (Auto) 0.6 Absolute Neuts (auto) 8.8 H Absolute Lymphs (auto) 4.10 Nucleated RBC % 0.4 Differential Comment SCANNED Diff Path Review May foll Sodium 138 Potassium 4.0 Chloride 102 Carbon Dioxide 25.7 Anion Gap 11 BUN 9 Creatinine 0.78 Estim Creat Clear Calc 99.51 Est GFR (MDRD) Non-Af 92 BUN/Creatinine Ratio 11.9 Glucose 127 H Calcium 9.0 Radiography Diagnostic Testing: Clinical Impression(s) from Imaging Studies Femur X-Ray 04/25/24 15:24 IMPRESSION: Large gaseous lucency along the left lateral hip, compatible with abscess. Surgical consultation isrecommended. Reading Location: [facility] Tibia/Fibula X-Ray 04/25/24 15:24 IMPRESSION: Large soft tissue mass overlying the chronic right distal anterior tibial fracture with gaseous lucency along the cranial aspect, compatible with developing infection/abscess. Surgical consultation recommended. Reading Location: [facility] Femur X-Ray 04/25/24 15:51 IMPRESSION: No obvious soft tissue lesion. 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 Prescriptions: No Action levothyroxine 50 mcg tablet 50 mcg PO DAILY clonidine HCl 0.1 mg tablet 0.1 mg PO Q12H famotidine 20 mg tablet 20 mg PO DAILY gabapentin 600 MG tablet 600 mg PO TID Patient Comments: PT TAKES 1-3X DAILY sertraline 100 MG tablet 150 mg PO DAILY methadone 10 MG/ML concentrate 90 mg PO DAILY bupropion HCl 100 mg tablet 150 mg PO BID levetiracetam [Keppra] PO BID promethazine 25 mg tablet 25 mg PO TID PRN (Reason: nausea and vomiting) clonazepam [Klonopin] 0.5 mg tablet 0.5 mg PO TID PRN (Reason: anxiety) mirtazapine [Remeron] 15 mg tablet 7.5 mg PO QHS sulfamethoxazole-trimethoprim [Bactrim DS] 800-160 mg tablet 1 tab PO Q12H 14 Days Qty: 28 0RF Primary Care Provider: Francisco Elmore Referrals: Francisco Elmore MD [Primary Care Provider] - Print Language: Angolan Disposition Disposition: Acute Care Hospital Discharge Location: [facility] What to do if you have Problems For any increased pain, shortness of breath, bleeding, nausea or vomiting, chestpain, or any unexpected problems, contact your Primary Care Provider. Call [facility] ([phone]) or report tothe closest Emergency Room. Call 911 if necessary. 04/25/24 1810 Cosigner Signature (if applicable): CC: Dr. Francisco Elmore MD ~ Signed [facility]03-09-2025 Radiology Diagnostic study note [facility] Imaging Services [address] [place] [address] Femur Min 2 Views MR#: [id number] Acct: [id number] Name: DEIDRA DE LA CRUZ Rep #: [id number] : 1970 F 54 From: Renae Ashton MD PCP: Dr. Francisco Elmore MD Status: REG ER Study:Femur Min 2 Views Date of Exam: Exam# [id number] Ordering Dr: Jacke Abarca MD PROCEDURE: FEMUR MIN 2 VIEWS REASON FOR EXAM: 54-year-old female, leg wounds. TECHNIQUE: 4 view(s) of the right femur COMPARISON: Right tibia/fibula radiographs 08/2021. FINDINGS: Interval sebastian and screw fixation of the right femur, extending into the proximal tibia. No obvious acute fracture. No suspicious bone lesion. Normal alignment at the hip. Surgical fixation of the right knee joint with expected sclerosis and demineralization. No obvious soft tissue lesion. RAD/Femur Min 2 Views IMPRESSION: No obvious soft tissue lesion. Reading Location: [facility] CC: Dr. Pan Abarca MD; Dr. Francisco Elmore MD ~ Operations And Maintenance Supervisor: Signed [facility]03-09-2025 Radiology Diagnostic study note [facility] Imaging Services [address] [place], [place] [id number] Tibia & Fibula 2 Views MR#: [id number] Acct: [id number] Name: DEIDRA DE LA CRUZ Rep #: [id number] : 1970 F 54 From: Renae Ashton MD PCP: Dr. Francisco Elmore MD Status: REG ER Study:Tibia & Fibula 2 Views Date of Exam: 04/25/24 Exam# [id number] Ordering Dr: Jacek Abarca MD PROCEDURE: TIBIA FIBULA 2 VIEWS REASON FOR EXAM: 54-year-old female, pain, concern for infection. Nonambulatory patient. TECHNIQUE: 3 view(s) of the right tibia and fibula COMPARISON: Prior right tibia/fibula radiographs 08/2021. FINDINGS: Interval sebastian and screw fixation of the distal right femur and proximal tibia, and surgical hardwareremoval of the prior right tibial ORIF. There is minimal osseous bridging of the known distal tibial fracture since 08/2021. Large soft tissue mass overlying the chronic right distal tibial anterior fracture, measuring at least 9.5 cm with gaseouslucency along the cranial aspect. No new acute osseous fracture. Patchy and diffuse serpiginous sclerosis within the proximal and distal tibia, compatible with chronic bone infarction. Numerous surgical clips throughout the right upper medial and right lower lateral leg. RAD/Tibia & Fibula 2 Views IMPRESSION: Large soft tissue mass overlying the chronic right distal anterior tibial fracture with gaseous lucency along the cranial aspect, compatible with developing infection/abscess. Surgical consultation recommended. Reading Location: [id number] CC: Dr. Pan Abarca MD; Dr. Francisco Elmore MD ~ Operations And Maintenance Supervisor: Signed [facility]03-09-2025 Radiology Diagnostic study note [facility] Imaging Services [address] [place], [place] [id number] Femur Min 2 Views MR#: [id number] Acct: [id number] Name: DEIDRA DE LA CRUZ Rep #: [id number] : 1970 F 54 From: Renae Ashton MD PCP: Dr. Francisco Elmore MD Status: REG ER Study:Femur Min 2 Views Date of Exam: Exam# [id number] Ordering Dr: Jacek Abarca MD PROCEDURE: FEMUR MIN 2 VIEWS REASON FOR EXAM: 54-year-old female, pain/wound, possible infection. TECHNIQUE: 4 view(s) of the left femur COMPARISON: None. FINDINGS: Prior surgical femoral head resection with plate and screw fixation of the left hip. Scattered surgical clips along the left lateral hip tissues. Large gaseous lucency overlying the surgical clips measuring approximately 15.1 cm in craniocaudal diameter. No acute osseous fracture. No suspicious bone lesion. Severe arthrosis of the left knee joint. Scattered surgical clips overlying theleft knee. RAD/Femur Min 2 Views IMPRESSION: Large gaseous lucency along the left lateral hip, compatible with abscess. Surgical consultation isrecommended. Reading Location: [facility] CC: Dr. Pan Abarca MD; Dr. Francisco Elmore MD ~ Operations And Maintenance Supervisor: Signed [facility]02-17-2025 Telephone encounter Note* Telephone Encounter - Bijan Elmore MD - 04/05/2024 11:18 AM EST The following approved medication requests have been transmitted electronically. Requested Prescriptions Signed Prescriptions Disp Refills promethazine (PHENERGAN) 25 mg tablet 30 tablet 2 Sig: take 1 tablet by mouth every 6 hours if needed Authorizing Provider: BIJAN ELMORE MD [facility]02-17-2025 Miscellaneous Notes* Telephone Encounter - Bijan Elmore MD - 04/05/2024 11:18 AM EST The following approved medication requests have been transmitted electronically. Requested Prescriptions Signed Prescriptions Disp Refills promethazine (PHENERGAN) 25 mg tablet 30 tablet 2 Sig: take 1 tablet by mouth every 6 hours if needed Authorizing Provider: BIJAN ELMORE MD * Telephone Encounter - Costa Johnson LPN - 04/05/2024 8:13 AM EST Prescription Refill Information The patient has been identified by name and date of : Yes Caregiver verified no other encounters exist for this prescription request: Yes Caregiver confirmed with patient/requestor that no other refills are due, in the near future, with this provider at this time: Yes The last office visit in the department: 11/18/2023 Does the patient have a future office visit with this provider/department: No Requested Prescriptions Pending Prescriptions Disp Refills promethazine (PHENERGAN) 25 mg tablet [Pharmacy Med Name: PROMETHAZINE 25 MG TABLET] 30 tablet 2 Sig: take 1 tablet by mouth every 6 hours if needed Costa Johnson LPN April 05, 2024 8:13 AM documented in [facility] [place] Telephone encounter Note * Telephone Encounter - Kenya Manrique - 04/05/2024 10:32 AM EST Called and scheduled pt. [facility]02-17-2025 Miscellaneous Notes* Telephone Encounter - Kenya Manrique - 04/05/2024 10:32 AM EST Called and scheduled pt. * Telephone Encounter - Kenya Manrique - 04/01/2024 1:50 PM EST 1st attempt, sent MC message. * Telephone Encounter - Bijan Elmore MD - 03/29/2024 11:58 AM EST The following approved medication requests have been transmitted electronically. Requested Prescriptions Signed Prescriptions Disp Refills buPROPion SR (WELLBUTRIN SR) 150 mg 12 hr tablet 60 tablet 2 Sig: take 1 tablet by mouth twice a day Authorizing Provider: BIJAN ELMORE Appt by May. Bijan Elmore MD * Telephone Encounter - Costa Johnson LPN - 03/29/2024 11:54 AM EST Prescription Refill Information The patient has been identified by name and date of : Yes Caregiver verified no other encounters exist for this prescription request: Yes Caregiver confirmed with patient/requestor that no other refills are due, in the near future, with this provider at this time: Yes The last office visit in the department: 11/18/2023 Does the patient have a future office visit with this provider/department: No Requested Prescriptions Pending Prescriptions Disp Refills buPROPion SR (WELLBUTRIN SR) 150 mg 12 hr tablet [Pharmacy Med Name: BUPROPION HCL SR 150 MG TABLET] 60 tablet 0 Sig: take 1 tablet by mouth twice a day Costa Johnson LPN March 29, 2024 11:55 AM documented in this [facility] [place] Telephone encounter Note * Telephone Encounter - Costa Johnson LPN - 04/05/2024 8:13 AM EST Prescription Refill Information The patient has been identified by name and date of : Yes Caregiver verified no other encounters exist for this prescription request: Yes Caregiver confirmed with patient/requestor that no other refills are due, in the near future, with this provider at this time: Yes The last office visit in the department: 11/18/2023 Does the patient have a future office visit with this provider/department: No Requested Prescriptions Pending Prescriptions Disp Refills promethazine (PHENERGAN) 25 mg tablet [Pharmacy Med Name: PROMETHAZINE 25 MG TABLET] 30 tablet 2 Sig: take 1 tablet by mouth every 6 hours if needed Costa Johnson LPN April 05, 2024 8:13 AM [facility]02-14-2025 Telephone encounter Note* Telephone Encounter - Costa Johnson LPN - 04/02/2024 1:45 PM EST Home health order sent to [facility]. [facility]02-14-2025 Miscellaneous Notes* Telephone Encounter - Costa Johnson LPN - 04/02/2024 1:45 PM EST Home health order sent to [facility]. * Telephone Encounter - Bijan Elmore MD - 04/02/2024 12:00 PM EST Home health consult initiated, but we haven't seen her for >90 days. Check with [facility] who was handling her previously The following approved medication requests have been transmitted electronically. Requested Prescriptions Signed Prescriptions Disp Refills clonazePAM (KLONOPIN) 0.5 mg tablet 90 tablet 0 Sig: Take 1 tablet by mouth three times a day for 30 days. Authorizing Provider: BIJAN ELMORE MD * Telephone Encounter - Acacia Morales - 04/02/2024 10:42 AM EST Patient calling to check status of medication refill. Patient also requesting homecare for wound care. Please return call to patient [phone] documented in this encounter[facility] [place] Telephone encounter Note * Telephone Encounter - Bijan Elmore MD - 04/02/2024 12:00 PM EST Home health consult initiated, but we haven't seen her for >90 days. Check with [facility] who was handling her previously The following approved medication requests have been transmitted electronically. Requested Prescriptions Signed Prescriptions Disp Refills clonazePAM (KLONOPIN) 0.5 mg tablet 90 tablet 0 Sig: Take 1 tablet by mouth three times a day for 30 days. Authorizing Provider: BIJAN ELMORE MD [facility]02-14-2025 Telephone encounter Note* Telephone Encounter - Acacia Morales - 04/02/2024 10:42 AM EST Patient calling to check status of medication refill. Patient also requesting homecare for wound care. Please return call to patient [phone] [facility]02-13-2025 Telephone encounter Note* Telephone Encounter - Kenya Manrique - 04/01/2024 1:50 PM EST 1st attempt, sent MC message. 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, unspecified fracture morphology, subsequent encounter S/P L ALT FF to RLE: A/P: - Doppler/Flap check Q4 hour per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 Orthopedic Trauma Surgery Available via [email or web address] * Treatment Plan - Fina Chen MD - 03/29/2024 9:24 AM EST Images from the original note were not included. INFECTIOUS DISEASES UPDATE Contacted by team regarding Eschericia coli growing in her culture from soft tissue biopsy of rightknee. Unclear of the anatomy as comment only includes her procedure name, not source specifics. She is allergic to PCN so cannot take Amoxicillin-clavulanate after discharge. While here, start Ceftriaxone 2gm IV q 12 hours, not q 24 hours as trying to load system. Please order Cefdinir 300mg PO q 12 hours for discharge. Send a prescription for a full 90 day supply to [facility] for Meds- to Beds program. Please also send a 90 day supply of Rifabutin as well with 3 refills. [facility] can also potentially mail prescription refills to her home as she has limited abilities to leave her home due to transportation issues. Tissue/Wound Culture/Smear Order: [id number] Collected 03/25/2024 09:34 Status: Final result Visible to patient: Yes (not seen) Dx: Type III open fracture of proximal en... Specimen Information: SOFT TISSUE BIOPSY 0 Result Notes Tissue/Wound Culture/Smear (1+) Rare Escherichia coli Abnormal Gram Stain No polymorphonuclear leukocytes seen No organisms seen Resulting Agency: [facility] Susceptibility Escherichia coli MICROSCAN Amikacin Susceptible Amoxicillin/Clavulanate Susceptible Ampicillin Resistant Ampicillin/Sulbactam Intermediate Cefazolin Intermediate Ceftriaxone Susceptible Ciprofloxacin Resistant Gentamicin Resistant Levofloxacin Resistant Piperacillin/Tazobactam Susceptible Tobramycin Resistant Trimethoprim/Sulfamethoxazole Resistant Linear View Specimen Collected: 03/25/24 09:34 Last Resulted: 03/27/24 08:39 Fina Billingsley MD (please reach through [employer]) Infectious Diseases, Senior Attending Physician * Care Plan - Shivam Faulkner RN - 03/29/2024 8:56 AM EST Problem: Pain - Adult Goal: Verbalizes/displays adequate comfort level or baseline comfort level Outcome: Progressing Problem: Safety - Adult Goal: Free from fall injury Outcome: Progressing Problem: Discharge Planning Goal: Discharge to home or other facility with appropriate resources Outcome: Progressing Problem: Chronic Conditions and Co-morbidities Goal: Patient's chronic conditions and co-morbidity symptoms are monitored and maintained or improved Outcome: Progressing Problem: Nutrition Goal: Nutrient intake appropriate for maintaining nutritional needs Outcome: Progressing Problem: Skin Goal: Decreased wound size/increased tissue granulation at next dressing change Outcome: Progressing Goal: Participates in plan/prevention/treatment measures Outcome: Progressing Goal: Prevent/manage excess moisture Outcome: Progressing Goal: Prevent/minimize sheer/friction injuries Outcome: Progressing Goal: Promote/optimize nutrition Outcome: Progressing Goal: Promote skin healing Outcome: Progressing The patient's goals for the shift include The clinical goals for the shift include pain management * Significant Event - Lidia Mora PA-C - 03/28/2024 10:07 PM EST Images from the original note were not included. Department of Plastic and Reconstructive Surgery PM flap Check Deidra De La Cruz is a 54 y.o. female s/p left ALT FF to RLE with Dr. Mark on 03/25/24. Subjective Resting in bed watching a movie. pain well controlled. She has no concern this evening. Xeroform dressing changed during flap assessment tonight. Denies fever, chills, nausea, vomiting. Objective Vitals: 03/28/24 1900 BP: 149/74 Pulse: 84 Resp: 18 Temp: 37 C (98.6 F) SpO2: 97% Physical Exam Constitutional: A&Ox3, calm and cooperative, NAD. Eyes: PERRL, EOMI ENMT: Moist mucous membranes, no apparent injuries or lesions. Head/Neck: NC/AT. Cardiovascular: Normal rate and regular rhythm. 2+ equal pulses of the distal extremities. Respiratory/Thorax: CTAB, regular respirations on RA. Good symmetric chest expansion. Gastrointestinal: Abdomen soft, NTND Genitourinary: indwelling lara in place with clear yellow output Extremities: RLE free flap viable. Slightly paler to surrounding skin but similar to crow thigh tissue. Flap warm, soft and compressible. Flap covered with myriad skin substitute, Cap refill < 3seconds. Implantable doppler in place with strong signal. Surrounding flap incisions intact with some sanguinous drainage, covered with adaptic. No surrounding erythema or edema. Left thigh donor site with prevena incisional vac intact without alarming for leak or malfunction. KENNY drain x 1 to left thigh with scant amount of sanguinous output to bulb. Tissue of left thigh soft and compartment compressive, no palpable induration or fluid collection present. RLE neurovascular intact, cap refill &lt ; 2 sec, +SILT, +df/pf but minimal and week, DP/PT with doppler and marked, radial pulses 2+, no drainage noted. Neurological: A&Ox3. Psychological: Appropriate mood and behavior. Assessment and Plan: s/p left ALT FF to RLE with Dr. Mark on 03/25/24 - tolerating diet, endorses flatus but denies BM yet - q2 doppler checks per nursing, strong doppler check of flap this evening - flap with dried blood improving with xeroform covering - Hgb stable, continue to monitor - Cr normalized Lidia Mora PA-C Plastic and Reconstructive Surgery * Care Plan - Tl Hernandez RN - 03/28/2024 9:47 PM EST The patient's goals for the shift include Discontinue Lara and Have a Bowel Movement The clinical goals for the shift include Positive Flap Checks, Pain Control Over the shift, the patient did make progress toward the following goals. Problem: Pain - Adult Goal: Verbalizes/displays adequate comfort level or baseline comfort level Outcome: Progressing Problem: Safety - Adult Goal: Free from fall injury Outcome: Progressing Problem: Discharge Planning Goal: Discharge to home or other facility with appropriate resources Outcome: Progressing Problem: Chronic Conditions and Co-morbidities Goal: Patient's chronic conditions and co-morbidity symptoms are monitored and maintained or improved Outcome: Progressing Problem: Nutrition Goal: Nutrient intake appropriate for maintaining nutritional needs Outcome: Progressing Problem: Skin Goal: Decreased wound size/increased tissue granulation at next dressing change Outcome: Progressing Goal: Participates in plan/prevention/treatment measures Outcome: Progressing Goal: Prevent/manage excess moisture Outcome: Progressing Goal: Prevent/minimize sheer/friction injuries Outcome: Progressing Goal: Promote/optimize nutrition Outcome: Progressing Goal: Promote skin healing Outcome: Progressing * Assessment & Plan Note - Sandi Atkinson PA-C - 03/28/2024 9:59 AM EST Associated Problem(s): 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, unspecified fracture morphology, subsequent encounter S/P L ALT FF to RLE: A/P: - Doppler/Flap check Q2 hour per nursing, interval checks per plastics - Xeroform to flap, changed BID per plastics team - Bedrest/HOB >60 - drain care- monitor KENNY output and strip drain Q4 - as needed antiemetic - prn pain management - maintain prevena incisional wound vac at 125 mmHg, notify plastics with any alarms or leaks - maintain implantable doppler, notify plastics if loses signal or issues - avoid pressure to flap site - VSQ4 - OK for regular diet - monitor labs - maintain Brandi hugger to LLE on for 5 hours and off for 1 hour x 5 days as tolerated - Lara to GD- to remain in place likely for 3 days post op while on strict bedrest - DVT ppx: Heparin SQ Q8 hrs post op at 0000, on POD#3 transition to Lovenox, start ASA 81 mg dailyPOD#1 - Notify plastics immediately with any concerns for change in color, decreased doppler signal to flap - Central line care per nursing protocol, remove when able to obtain IV access #Hypotensive - resolved: - monitor VSQ4 - prn bolus #SHE - resolved: - 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, improved to 0.64 this AM - avoid nephrotoxic agents - monitor kidney function #Acute on chronic blood loss anemia: - H&H prior to surgery low 7.8/26.8 on 03/17 - received 2 units PRBC in the OR and 1 unit PRBC in PACU (EBL 200 ml) - repeat H&H post op 8.4/25.9 - repeat CBC with Hemoglobin 8.1 this AM, continue to monitor on AM labs - consider transfuse if Hgb < 9 for flap perfusion #Acute Post op pain: - scheduled PO Tylenol 975 mg Q8 - scheduled Gabapentin PO 600 mg Q8 - scheduled Robaxin - prn Baclofen Q8 prn - prn oxycodone PO 5 mg for moderate pain - prn oxycodone PO 10 mg for severe pain - prn IV Dilaudid 0.2 mg for breakthrough * Care Plan - Shivam Faulkner RN - 03/28/2024 9:55 AM EST Problem: Pain - Adult Goal: Verbalizes/displays adequate comfort level or baseline comfort level 03/28/2024954 by Shivam Faulkner RN Outcome: Progressing 03/28/2024954 by Shivam Faulkner RN Outcome: Progressing Problem: Safety - Adult Goal: Free from fall injury 03/28/2024954 by Shivam Faulkner RN Outcome: Progressing 03/28/2024954 by Shivam Faulkner RN Outcome: Progressing Problem: Discharge Planning Goal: Discharge to home or other facility with appropriate resources 03/28/2024954 by Shivam Faulkner RN Outcome: Progressing 03/28/2024954 by Shivam Faulkner RN Outcome: Progressing Problem: Chronic Conditions and Co-morbidities Goal: Patient's chronic conditions and co-morbidity symptoms are monitored and maintained or improved 03/28/2024954 by Shivam Faulkner RN Outcome: Progressing 03/28/2024954 by Shivam Faulkner RN Outcome: Progressing Problem: Nutrition Goal: Nutrient intake appropriate for maintaining nutritional needs 03/28/2024954 by Shivam Faulkner RN Outcome: Progressing 03/28/2024954 by Shivam Faulkner RN Outcome: Progressing Problem: Skin Goal: Decreased wound size/increased tissue granulation at next dressing change 03/28/2024954 by Shivam Faulkner RN Outcome: Progressing 03/28/2024954 by Shivam Faulkner RN Outcome: Progressing Goal: Participates in plan/prevention/treatment measures 03/28/2024954 by Shivam Faulkner RN Outcome: Progressing 03/28/2024954 by Shivam Faulkner RN Outcome: Progressing Goal: Prevent/manage excess moisture 03/28/2024954 by Shivam Faulkner RN Outcome: Progressing 03/28/2024954 by Shivam Faulkner RN Outcome: Progressing Goal: Prevent/minimize sheer/friction injuries 03/28/2024954 by Shivam Faulkner RN Outcome: Progressing 03/28/2024954 by Shivam Faulkner RN Outcome: Progressing Goal: Promote/optimize nutrition 03/28/2024954 by Shivam Faulkner RN Outcome: Progressing 03/28/2024954 by Shivam Faulkner RN Outcome: Progressing Goal: Promote skin healing 03/28/2024954 by Shivam Faulkner RN Outcome: Progressing 03/28/2024954 by Shivam Faulkner RN Outcome: Progressing The patient's goals for the shift include The clinical goals for the shift include patient to remain hemodynamically stable * Care Plan - Jayshree Steele RN - 03/27/2024 9:44 PM EST The patient's goals for the shift include The clinical goals for the shift include Pt will remain HDS, rate pain <9, and flap will remain healthy Problem: Pain - Adult Goal: Verbalizes/displays adequate comfort level or baseline comfort level Outcome: Progressing Problem: Safety - Adult Goal: Free from fall injury Outcome: Progressing Problem: Discharge Planning Goal: Discharge to home or other facility with appropriate resources Outcome: Progressing Problem: Chronic Conditions and Co-morbidities Goal: Patient's chronic conditions and co-morbidity symptoms are monitored and maintained or improved Outcome: Progressing Problem: Nutrition Goal: Nutrient intake appropriate for maintaining nutritional needs Outcome: Progressing Problem: Skin Goal: Decreased wound size/increased tissue granulation at next dressing change Outcome: Progressing Flowsheets (Taken 03/27/20242142) Decreased wound size/increased tissue granulation at next dressing change: Promote sleep for wound healing Goal: Participates in plan/prevention/treatment measures Outcome: Progressing Flowsheets (Taken 03/27/20242142) Participates in plan/prevention/treatment measures: Discuss with provider PT/OT consult Elevate heels Goal: Prevent/manage excess moisture Outcome: Progressing Flowsheets (Taken 03/27/20242142) Prevent/manage excess moisture: Use wicking fabric (obtain order) Moisturize dry skin Follow provider orders for dressing changes Monitor for/manage infection if present Goal: Prevent/minimize sheer/friction injuries Outcome: Progressing Flowsheets (Taken 03/27/20242142) Prevent/minimize sheer/friction injuries: Turn/reposition every 2 hours/use positioning/transfer devices Use pull sheet Complete micro-shifts as needed if patient unable. Adjust patient position to relieve pressure points, not a full turn Goal: Promote/optimize nutrition Outcome: Progressing Flowsheets (Taken 03/27/20242142) Promote/optimize nutrition: Offer water/supplements/favorite foods Monitor/record intake including meals Consume > 50% meals/supplements Goal: Promote skin healing Outcome: Progressing Flowsheets (Taken 03/27/20242142) Promote skin healing: Turn/reposition every 2 hours/use positioning/transfer devices Rotate device position/do not position patient on device Protective dressings over bony prominences Ensure correct size (line/device) and apply per street cleaning equipment operator instructions Assess skin/pad under line(s)/device(s) * Significant Event - Lidia Mora PA-C - 03/27/2024 8:59 PM EST Images from the original note were not included. Department of Plastic and Reconstructive Surgery PM flap Check Deidra De La Cruz is a 54 y.o. female s/p left ALT FF to RLE with Dr. Mark on 03/25/24. Subjective Resting in bed. pain well controlled. She has no concern this evening. Hopeful for some better sleep with spacing of flap checks to q2 hours. Xeroform dressing changed during flap assessment tonight.Denies fever, chills, nausea, vomiting. Objective Vitals: 03/27/24 1900 BP: 145/72 Pulse: 70 Resp: 18 Temp: 36.6 C (97.9 F) SpO2: 94% Physical Exam Constitutional: A&Ox3, calm and cooperative, NAD. Eyes: PERRL, EOMI ENMT: Moist mucous membranes, no apparent injuries or lesions. Head/Neck: NC/AT. Cardiovascular: Normal rate and regular rhythm. 2+ equal pulses of the distal extremities. Respiratory/Thorax: CTAB, regular respirations on RA. Good symmetric chest expansion. Gastrointestinal: Abdomen soft, NTND Genitourinary: indwelling lara in place with clear yellow output Extremities: RLE free flap viable. Slightly paler to surrounding skin but similar to crow thigh tissue. Flap warm, soft and compressible. Flap covered with myriad skin substitute, Cap refill < 3seconds. Implantable doppler in place with strong signal. Surrounding flap incisions intact with some sanguinous drainage, covered with adaptic. No surrounding erythema or edema. Left thigh donor site with prevena incisional vac intact without alarming for leak or malfunction. KENNY drain x 1 to left thigh with scant amount of sanguinous output to bulb. Tissue of left thigh soft and compartment compressive, no palpable induration or fluid collection present. RLE neurovascular intact, cap refill &lt ; 2 sec, +SILT, +df/pf but minimal and week, DP/PT with doppler and marked, radial pulses 2+, no drainage noted. Neurological: A&Ox3. Psychological: Appropriate mood and behavior. Assessment and Plan: s/p left ALT FF to RLE with Dr. Mark on 03/25/24 - tolerating diet, endorses flatus but denies BM - q2 doppler checks per nursing starting at 11pm, strong doppler check of flap this evening - flap with dried blood improving with xeroform covering - Hgb stable, continue to monitor - Cr normalized Lidia Mora PA-C Plastic and Reconstructive Surgery * Care Plan - Latia Vitale RN - 03/27/2024 3:33 PM EST The patient's goals for the shift include The clinical goals for the shift include Pt will remain HDS, rate pain <9, and flap will remain healthy Problem: Pain - Adult Goal: Verbalizes/displays adequate comfort level or baseline comfort level Outcome: Progressing Problem: Safety - Adult Goal: Free from fall injury Outcome: Progressing Problem: Discharge Planning Goal: Discharge to home or other facility with appropriate resources Outcome: Progressing Problem: Chronic Conditions and Co-morbidities Goal: Patient's chronic conditions and co-morbidity symptoms are monitored and maintained or improved Outcome: Progressing Problem: Nutrition Goal: Nutrient intake appropriate for maintaining nutritional needs Outcome: Progressing Problem: Skin Goal: Decreased wound size/increased tissue granulation at next dressing change Outcome: Progressing Flowsheets (Taken 03/27/2024 153) Decreased wound size/increased tissue granulation at next dressing change: Promote sleep for wound healing Protective dressings over bony prominences Utilize specialty bed per algorithm Goal: Participates in plan/prevention/treatment measures Outcome: Progressing Flowsheets (Taken 03/27/20241532) Participates in plan/prevention/treatment measures: Discuss with provider PT/OT consult Elevate heels Increase activity/out of bed for meals Goal: Prevent/manage excess moisture Outcome: Progressing Flowsheets (Taken 03/27/20241532) Prevent/manage excess moisture: Use wicking fabric (obtain order) Moisturize dry skin Monitor for/manage infection if present Follow provider orders for dressing changes Cleanse incontinence/protect with barrier cream Goal: Prevent/minimize sheer/friction injuries Outcome: Progressing Flowsheets (Taken 03/27/20241532) Prevent/minimize sheer/friction injuries: Use pull sheet Complete micro-shifts as needed if patient unable. Adjust patient position to relieve pressure points, not a full turn Increase activity/out of bed for meals Turn/reposition every 2 hours/use positioning/transfer devices HOB 30 degrees or less Utilize specialty bed per algorithm Goal: Promote/optimize nutrition Outcome: Progressing Flowsheets (Taken 03/27/2024 1533) Promote/optimize nutrition: Monitor/record intake including meals Assist with feeding Consume > 50% meals/supplements Offer water/supplements/favorite foods Discuss with provider if NPO > 2 days Reassess MST if electromechanical inspector not consulted Goal: Promote skin healing Outcome: Progressing Flowsheets (Taken 03/27/2024 1533) Promote skin healing: Turn/reposition every 2 hours/use positioning/transfer devices Protective dressings over bony prominences Ensure correct size (line/device) and apply per street cleaning equipment operator instructions Rotate device position/do not position patient on device Assess skin/pad under line(s)/device(s) * Assessment & Plan Note - Sandi Atkinson PA-C - 03/27/2024 10:49 AM EST Associated Problem(s): 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, unspecified fracture morphology, subsequent encounter S/P L ALT FF to RLE: A/P: - Doppler/Flap check Q1 hour per nursing, plastics doppler Q2 x 24-48 hrs - Xeroform to flap, changed BID per plastics team - Bedrest/HOB >60 - drain care- monitor KENNY output and strip drain Q4 - as needed antiemetic - prn pain management - maintain prevena incisional wound vac at 125 mmHg, notify plastics with any alarms or leaks - maintain implantable doppler, notify plastics if loses signal or issues - avoid pressure to flap site - VSQ4 - OK for regular diet - monitor labs - maintain Brandi hugger to LLE on for 5 hours and off for 1 hour x 5 days as tolerated - Lara to GD- to remain in place likely for 3 days post op while on strict bedrest - DVT ppx: Heparin SQ Q8 hrs post op at 0000, on POD#3 transition to Lovenox, start ASA 81 mg dailyPOD#1 - Notify plastics immediately with any concerns for change in color, decreased doppler signal to flap - Central line care per nursing protocol, remove when able to obtain IV access #Hypotensive - resolved: - monitor VSQ4 - prn bolus #SHE - resolved: - 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, improved to 0.76 this AM - IVF - avoid nephrotoxic agents - monitor kidney function #Acute on chronic blood loss anemia: - H&H prior to surgery low 7.8/26.8 on 03/17 - received 2 units PRBC in the OR and 1 unit PRBC in PACU (EBL 200 ml) - repeat H&H post op 8.4/25.9 - repeat CBC with improved Hemoglobin 8.5 this AM, continue to monitor on AM labs - transfuse if Hgb < 9 for flap perfusion #Acute Post op pain: - scheduled PO Tylenol 975 mg Q8 - scheduled Gabapentin PO 600 mg Q8 - scheduled Robaxin - prn Baclofen Q8 prn - prn oxycodone PO 5 mg for moderate pain - prn oxycodone PO 10 mg for severe pain - prn IV Dilaudid 0.2 mg for breakthrough * Care Plan - Jayshree Steele RN - 03/27/2024 1:26 AM EST The patient's goals for the shift include The clinical goals for the shift include pain management Problem: Pain - Adult Goal: Verbalizes/displays adequate comfort level or baseline comfort level Outcome: Progressing Problem: Safety - Adult Goal: Free from fall injury Outcome: Progressing Problem: Discharge Planning Goal: Discharge to home or other facility with appropriate resources Outcome: Progressing Problem: Chronic Conditions and Co-morbidities Goal: Patient's chronic conditions and co-morbidity symptoms are monitored and maintained or improved Outcome: Progressing Problem: Nutrition Goal: Nutrient intake appropriate for maintaining nutritional needs Outcome: Progressing Problem: Skin Goal: Decreased wound size/increased tissue granulation at next dressing change Outcome: Progressing Flowsheets (Taken 03/27/2024120) Decreased wound size/increased tissue granulation at next dressing change: Promote sleep for wound healing Protective dressings over bony prominences Goal: Participates in plan/prevention/treatment measures Outcome: Progressing Flowsheets (Taken 03/27/2024120) Participates in plan/prevention/treatment measures: Discuss with provider PT/OT consult Elevate heels Goal: Prevent/manage excess moisture Outcome: Progressing Flowsheets (Taken 03/27/2024120) Prevent/manage excess moisture: Moisturize dry skin Use wicking fabric (obtain order) Follow provider orders for dressing changes Monitor for/manage infection if present Goal: Prevent/minimize sheer/friction injuries Outcome: Progressing Flowsheets (Taken 03/27/2024120) Prevent/minimize sheer/friction injuries: Utilize specialty bed per algorithm Use pull sheet Turn/reposition every 2 hours/use positioning/transfer devices Increase activity/out of bed for meals HOB 30 degrees or less Goal: Promote/optimize nutrition Outcome: Progressing Flowsheets (Taken 03/27/2024120) Promote/optimize nutrition: Offer water/supplements/favorite foods Consume > 50% meals/supplements Monitor/record intake including meals Goal: Promote skin healing Outcome: Progressing Flowsheets (Taken 03/27/2024120) Promote skin healing: Protective dressings over bony prominences Ensure correct size (line/device) and apply per street cleaning equipment operator instructions Assess skin/pad under line(s)/device(s) Rotate device position/do not position patient on device Turn/reposition every 2 hours/use positioning/transfer devices * Significant Event - Lidia Mora PA-C - 03/26/2024 9:29 PM EST Images from the original note were not included. Department of Plastic and Reconstructive Surgery PM flap Check Deidra De La Cruz is a 54 y.o. female s/p left ALT FF to RLE with Dr. Mark on 03/25/24. Subjective Resting in bed. States she is very tired and has barely gotten any sleep. pain well controlled. Endorses flatus but no BM yet. Denies fever, chills, nausea, vomiting. Objective Vitals: 03/26/24 1900 BP: 143/71 Pulse: 87 Resp: 18 Temp: 36.9 C (98.5 F) SpO2: 93% Physical Exam Constitutional: A&Ox3, calm and cooperative, NAD. Eyes: PERRL, EOMI ENMT: Moist mucous membranes, no apparent injuries or lesions. Head/Neck: NC/AT. Cardiovascular: Normal rate and regular rhythm. 2+ equal pulses of the distal extremities. Respiratory/Thorax: CTAB, regular respirations on RA. Good symmetric chest expansion. Gastrointestinal: Abdomen soft, NTND Genitourinary: indwelling lara in place with clear yellow output Extremities: RLE free flap viable. Slightly paler to surrounding skin but similar to crow thigh tissue. Flap warm, soft and compressible. Flap covered with myriad skin substitute, Cap refill < 3seconds. Implantable doppler in place with strong signal. Surrounding flap incisions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 no other refills are due, in the near future, with this provider at this time: Yes The last office visit in the department: 11/18/23 Does the patient have a future office visit with this provider/department: No Requested Prescriptions Pending Prescriptions Disp Refills promethazine (PHENERGAN) 25 mg tablet 30 tablet 2 Sig: Take 1 tablet by mouth every 6 hours as needed. Zandra Nelson MA January 27, 2024 1:51 PM [facility] [place] Telephone encounter Note * Telephone Encounter - Carlo Miranda LPN - 01/27/2024 1:37 PM EST Prescription Refill Information The patient has been identified by name and date of : Yes Caregiver verified no other encounters exist for this prescription request: Yes Caregiver confirmed with patient/requestor that no other refills are due, in the near future, with this provider at this time: Yes The last office visit in the department: 11/18/23 Does the patient have a future office visit with this provider/department: No Requested Prescriptions Pending Prescriptions Disp Refills levETIRAcetam (KEPPRA) 500 mg tablet 60 tablet 2 Sig: Take 1 tablet by mouth two times a day. baclofen 20 mg tablet 90 tablet 5 Sig: Take 1 tablet by mouth three times a day. Carlo Miranda LPN January 27, 2024 1:37 PM [facility]12-10-2024 Miscellaneous Notes* Telephone Encounter - Carlo Miranda LPN - 01/27/2024 1:37 PM EST Prescription Refill Information The patient has been identified by name and date of : Yes Caregiver verified no other encounters exist for this prescription request: Yes Caregiver confirmed with patient/requestor that no other refills are due, in the near future, with this provider at this time: Yes The last office visit in the department: 11/18/23 Does the patient have a future office visit with this provider/department: No Requested Prescriptions Pending Prescriptions Disp Refills levETIRAcetam (KEPPRA) 500 mg tablet 60 tablet 2 Sig: Take 1 tablet by mouth two times a day. baclofen 20 mg tablet 90 tablet 5 Sig: Take 1 tablet by mouth three times a day. Carlo Miranda LPN January 27, 2024 1:37 PM documented [facility] [place] History of Present illness Narrative* Dalila Avila RN - 01/16/2024 4:46 PM EST Care Transitions Progress Note: Patient to be discharged today to home with outpatient rx.s for therapy. Patient was discharged on Oral antbx. * Elsa Robledo MD - 01/16/2024 5:33 AM EST Orthopaedic Surgery Progress Note S: NAEON. Pain well controlled. Restarted home pain meds per chronic pain. PICC in place. Cultures growing MRSA. Rec'd vanc x8 weeks per ID. Patient reports she needs to leave today to take care of son with special needs. Discussed importance of receiving IV antibiotics. Patient understands risks. O: BP 125/74 (BP Location: Left arm, Patient Position: Lying) Pulse 70 Temp 36.6 C (97.9 F) (Temporal) Resp 16 Ht 1.676 m (5' 6) Wt 83.9 kg (185 lb) SpO2 92% BMI 29.86 kg/m Gen: arousable, NAD, appropriately conversational Cardiac: RRR to peripheral palpation Resp: nonlabored on RA GI: soft, nondistended MSK: Right lower extremity: - Dressing CDI - Compartments soft and compressible - wiggles toes - SILT in Giang/Sa/SP/DP/T distributions - Brisk cap refill, WWP A/P: 53 y.o. female s/p HOME, I&D, abx spacer R tibia on 01/[address] Goodman. Plan: - Weight bearing: WBAT RLE - DVT ppx: SCDs, ASA 81 x 6 weeks - Diet: Regular - Pain: per chronic pain; appreciate recs -> okay to restart home methadone dose and 2.5/5 mg oxy for breakthrough pain - Antibiotics: Vanc/zosyn, pending ID recs - Intra-op cx with MRSA, ID rec'd vanc 1250 BID x8 weeks per ID - PICC placed 01/10; if leaving today, will need PICC removal. - Per ID: Although not ideal, I can offer alternative treatment with all oral antibiotics. THUS could consider high-dose Bactrim 2 double strength tablets p.o. 3 times daily. Patient would require 1 month supply and 3 refills bridging follow-up appointment with Dr. Wilder - FEN: HLIV with good PO intake - Bowel Regimen: Colace, senna, dulcolax - PT/OT - Pulm: Encourage IS - Continue home medications: baclofen, bupropion, klonopin, clonidine, keppra, synthroid, zoloft - No lara Dispo: medically ready for dc, pending discussion regarding antibiotic home regimen. While inpatient, this patient will be followed by the Orthopaedic trauma team. Please see contact information below: 1st call: Elsa Robledo, PGY-1 2nd call: Mack Sumner PGY-2 3rd call: Daniele Barnett PGY-3 Please call the ortho pager ([phone]) on weekends and between 6p-7a on weekdays. Cosigned by Cruz Goodman MD at 01/16/2024 7:02 AM EST * Jimmy Rodriguez RN - 01/15/2024 2:58 PM EST 01/15/24 @2548 Transitional Steel Erector Note Called into pt's room to introduce myself, role and to discuss discharge planning, no answer. I also called pt's cell phone at [phone], no answer. Will continue to follow. 01/15/24 @9130 addendum Spoke to the pt, introduced myself, role and discussed discharge planning. I offered the pt a choice list of SNF's, which pt asked for list to be sent to her email at [email or web address]. SNFlist sent to pt. Will continue to follow. * Guera Rosenberg PTA - 01/15/2024 2:11 PM EST Physical Therapy Treatment Patient Name: Deidra De La Cruz Today's Date: 01/15/2024 Room: [address] [place] [address] Time Calculation Start Time: 1217 Stop Time: 1258 Time Calculation (min): 41 min Assessment/Plan PT Plan Treatment/Interventions: Bed mobility, Transfer training, Wheelchair management, Therapeutic activity, Therapeutic exercise, Balance training, Strengthening, Range of motion PT Plan: Ongoing PT PT Frequency: Daily PT Discharge Recommendations: ((Anticipate Low. Would reccomend verifying pt can transfer to her familiar WC when it is available- Friend is bringing tomorrow).) Equipment Recommended upon Discharge: (Pt already owns) PT Recommended Transfer Status: Assist x2 (to chair with arms, likely x1 to chair with removable arm) PT - OK to Discharge: Yes (Meaning pt has been evaluated and d/c recc is in place) Assessment: Patient is progressing Well with therapy this date. Pt able to transfer to personal wc @ SBA. 1 full STS with fww @ maxA. Would continue to benefit from continued skilled PT to address all mobility deficits; Patient remains appropriate for LOW intensity therapy when medically appropriate for discharge from acute stay. Will continue to follow. General Visit Information: PT Visit PT Received On: 01/15/24 Prior to Session Communication: Bedside nurse Patient Position Received: Bed, 3 rail up Subjective Subjective: Pt pleasant and agreeable to therapy upon approach Precautions: Precautions LE Weight Bearing Status: Weight Bearing as Tolerated Medical Precautions: Fall precautions Objective Pain: Pain Assessment Pain Assessment: 0-10 0-10 (Numeric) Pain Score: 0 - No pain Cognition: Cognition Overall Cognitive Status: Within Functional Limits Arousal/Alertness: Appropriate responses to stimuli Orientation Level: Oriented X4 Following Commands: Follows all commands and directions without difficulty Lines/Tubes/Drains: PICC - Adult 01/11/24 Single lumen Right Basilic vein (Active) Number of days: 3 External Urinary Catheter Female (Active) Number of days: 5 PT Treatments: Therapeutic Activity Therapeutic Activity 1: Extended education with visual demo for proper body mechanics for STS. Pt completed 5x2 1/2 stands from with focus on anterior trunk leaning Bed Mobility 1 Bed Mobility 1: Scooting Level of Assistance 1: Modified independent Bed Mobility Comments 1: up towards HOB use of bed rails Bed Mobility 2 Bed Mobility 2: Supine to sitting, Sitting to supine Level of Assistance 2: Close supervision Bed Mobility Comments 2: uses arms to assist LLE Transfer 1 Transfer From 1: Bed to Transfer to 1: Wheelchair Technique 1: Lateral Transfer Level of Assistance 1: Close supervision Trials/Comments 1: pt able to set up wc and remove arm rest appropriately Transfers 2 Transfer From 2: Wheelchair to Transfer to 2: Bed Technique 2: Lateral Transfer Level of Assistance 2: Close supervision Trials/Comments 2: able to make several scoots to bed (personal chair) Transfers 3 Transfer From 3: Sit to Transfer to 3: Stand Technique 3: Sit to stand, Stand to sit Transfer Device 3: Walker Transfer Level of Assistance 3: Maximum assistance, Moderate verbal cues, Moderate tactile cues Trials/Comments 3: x4 attempts. x1 full stand, extended time to educate on body mechanics Activity tolerance: Activity Tolerance Endurance: Tolerates 10 - 20 min exercise with multiple rests Outcome Measures: [facility] Basic Mobility Turning from your back to your side while in a flat bed without using bedrails: A little Moving from lying on your back to sitting on the side of a flat bed without using bedrails: A little Moving to and from bed to chair (including a wheelchair): A little Standing up from a chair using your arms (e.g. wheelchair or bedside chair): A lot To walk in hospital room: Total Climbing 3-5 steps with railing: Total Basic Mobility - Total Score: 13 Education Documentation Body Mechanics, taught by Guera Rosenberg PTA at 01/15/2024 2:09 PM. Learner: Patient Readiness: Acceptance Method: Explanation Response: Verbalizes Understanding Precautions, taught by Guera Rosenberg PTA at 01/15/2024 2:09 PM. Learner: Patient Readiness: Acceptance Method: Explanation Response: Verbalizes Understanding ADL Training, taught by Guera Rosenberg PTA at 01/15/2024 2:09 PM. Learner: Patient Readiness: Acceptance Method: Explanation Response: Verbalizes Understanding Precautions, taught by Guera Rosenberg PTA at 01/15/2024 2:09 PM. Learner: Patient Readiness: Acceptance Method: Explanation Response: Verbalizes Understanding Body Mechanics, taught by Guera Rosenberg PTA at 01/15/2024 2:09 PM. Learner: Patient Readiness: Acceptance Method: Explanation Response: Verbalizes Understanding Mobility Training, taught by Guera Rosenberg PTA at 01/15/2024 2:09 PM. Learner: Patient Readiness: Acceptance Method: Explanation Response: Verbalizes Understanding Education Comments No comments found. OP EDUCATION: Encounter Problems Encounter Problems (Active) Mobility WC propulsion >50 feet, Ind (Progressing) Start: 01/09/24 Expected End: 01/23/24 PT Transfers Pt able to perform bed mobility Ind from a flat bed without rail. (Progressing) Start: 01/09/24 Expected End: 01/23/24 bed<>WC, WC<>toilet, Ind (Progressing) Start: 01/09/24 Expected End: 01/23/24 Safety LTG - Patient will adhere to hip precautions during ADL's and transfers (Progressing) Start: 01/10/24 LTG - Patient will demonstrate safety requirements appropriate to situation/environment (Progressing) Start: 01/10/24 LTG - Patient will utilize safety techniques (Progressing) Start: 01/10/24 STG - Patient locks brakes on wheelchair (Progressing) Start: 01/10/24 STG - Patient uses call light consistently to request assistance with transfers (Progressing) Start: 01/10/24 STG - Patient uses gait belt during all transfers (Progressing) Start: 01/10/24 Goal 1 (Progressing) Start: 01/10/24 Goal 2 (Progressing) Start: 01/10/24 Goal 3 (Progressing) Start: 01/10/24 Cosigned by Britt Greenfield, PT at 01/16/2024 8:12 AM EST * Elsa Robledo MD - 01/15/2024 8:23 AM EST Orthopaedic Surgery Progress Note S: NAEON. Pain well controlled. Restarted home pain meds per chronic pain. PICC in place. Cultures growing MRSA. Rec'd vanc x8 weeks per ID. O: BP 123/74 Pulse 66 Temp 36.7 C (98.1 F) (Temporal) Resp 18 Ht 1.676 m (5' 6) Wt 83.9 kg (185 lb) SpO2 96% BMI 29.86 kg/m Gen: arousable, NAD, appropriately conversational Cardiac: RRR to peripheral palpation Resp: nonlabored on RA GI: soft, nondistended MSK: Right lower extremity: - Dressing CDI - Compartments soft and compressible - wiggles toes - SILT in Giang/Sa/SP/DP/T distributions - Brisk cap refill, WWP A/P: 53 y.o. female s/p HOME, I&D, abx spacer R tibia on 01/[address] Goodman. Plan: - Weight bearing: WBAT RLE - DVT ppx: SCDs, ASA 81 x 6 weeks - Diet: Regular - Pain: per chronic pain; appreciate recs -> okay to restart home methadone dose and 2.5/5 mg oxy for breakthrough pain - Antibiotics: Vanc/zosyn, pending ID recs - Intra-op cx with MRSA, ID rec'd vanc 1250 BID x8 weeks per ID - PICC placed 01/10 - FEN: HLIV with good PO intake - Bowel Regimen: Colace, senna, dulcolax - PT/OT - Pulm: Encourage IS - Continue home medications: baclofen, bupropion, klonopin, clonidine, keppra, synthroid, zoloft - No lara Dispo: medically ready for dc, pending discussion regarding antibiotic home regimen. While inpatient, this patient will be followed by the Orthopaedic trauma team. Please see contact information below: 1st call: Elsa Robledo, PGY-1 2nd call: Mack Sumner PGY-2 3rd call: Daniele Barnett PGY-3 Please call the ortho pager ([phone]) on weekends and between 6p-7a on weekdays. Cosigned by Cruz Goodman MD at 01/16/2024 7:01 AM EST * Дмитрий Price, YamiletD - 01/15/2024 8:12 AM EST Vancomycin Dosing by Pharmacy- FOLLOW UP Deidra De La Cruz is a 53 y.o. year old female who Pharmacy has been consulted for vancomycin dosing for Surgical prophylaxis. Based on the patient's indication and renal status this patient is being dosed based on a goal AUC of 400-600. Renal function is currently stable. Current vancomycin dose: 1250 mg given every 12 hours Estimated vancomycin AUC on current dose: 483 mg/L.hr Visit Vitals BP 139/81 Pulse 69 Temp 36.1 C (97 F) (Temporal) Resp 16 Lab Results Component Value Date CREATININE 0.78 01/15/2024 CREATININE 0.81 01/10/2024 CREATININE 0.84 01/09/2024 CREATININE 0.71 12/30/2023 Patient weight is as follows: Vitals: 01/09/24 0640 Weight: 83.9 kg (185 lb) Cultures: Susceptibility data for the encounter in last 14 days. Collected Specimen Info Organism Clindamycin Erythromycin Oxacillin Tetracycline Trimethoprim/Sulfamethoxazole Vancomycin 01/09/24 Swab from BONE RESECTION Methicillin Resistant Staphylococcus aureus (MRSA) R R R S S S 01/09/24 Swab from BONE CURETTINGS (DECAL) Staphylococcus aureus 01/09/24 Swab from NAIL Staphylococcus aureus 01/09/24 Swab from HARDWARE Staphylococcus aureus 01/09/24 Swab from HARDWARE Staphylococcus aureus I/O last 3 completed shifts: In: - (0 mL/kg) Out: 1700 (20.3 mL/kg) [Urine:1700 (0.6 mL/kg/hr)] Weight: 83.9 kg I/O during current shift: No intake/output data recorded. Temp (24hrs), Av.8 C (98.2 F), Min:36.1 C (97 F), Max:37.5 C (99.5 F) Assessment/Plan Within goal AUC range. Continue current vancomycin regimen. This dosing regimen is predicted by [employer] to result in the following pharmacokinetic parameters: Regimen: 1250 mg IV every 12 hours. Start time: 08:51 on 01/15/2024 Exposure target: AUC24 (range)400-600 mg/L.hr [id number]: 483 mg/L.hr AUC24,ss: 483 mg/L.hr Probability of AUC24 > 400: 94 % Ctrough,ss: 13.7 mg/L Probability of Ctrough,ss > 20: 0 % The next level will be obtained on 01/18 at am lab draw. May be obtained sooner if clinically indicated. Will continue to monitor renal function daily while on vancomycin and order serum creatinine at least every 48 hours if not already ordered. Follow for continued vancomycin needs, clinical response, and signs/symptoms of toxicity. Дмитрий Price PharmD * Pato Wilder MD - 01/14/2024 10:21 PM EST Deidra De La Cruz is a 53 y.o. female on day 5 of admission presenting with Traumatic arthritis of left hip. Subjective Interval History Patient seen during early afternoon rounds Patient supine in bed and in no acute distress. Care managers working with patient and her niece for PICC line training Patient thinks that it will become easier with time, as she said just like learning her new job. Patient has had no fever, chills, headache, shortness of breath or chest pain Objective Range of Vitals (last 24 hours) Heart Rate: [72-84] Temp: [36.4 C (97.5 F)-37.5 C (99.5 F)] Resp: [15-18] BP: (121-152)/(67-92) SpO2: [94 %-96 %] Daily Weight 01/09/24 : 83.9 kg (185 lb) Body mass index is 29.86 kg/m . Physical Exam Alert and oriented Pleasant and interactive Actually sounded encouraged about being able to learn PICC line management Feels her niece will be a great assistance since her niece has done this before for other family members Anterolateral chest clear S1, S2, I did not hear murmur Right lower leg in surgical dressing and Sebastian wrap Antibiotics piperacillin-tazobactam - 3.375 gram/50 mL vancomycin - 1.25 gram/250 mL VANCOMYCIN IVPB 250 ML NS 90 MIN Results C-Reactive Protein Date Value Ref Range Status 12/01/2023 3.77 (H) <1.00 mg/dL Final Microbiology Susceptibility data from last 14 days. Collected Specimen Info Organism Clindamycin Erythromycin Oxacillin Tetracycline Trimethoprim/Sulfamethoxazole Vancomycin 01/09/24 Swab from BONE RESECTION Methicillin Resistant Staphylococcus aureus (MRSA) R R R S S S 01/09/24 Swab from BONE CURETTINGS (DECAL) Staphylococcus aureus 01/09/24 Swab from NAIL Staphylococcus aureus 01/09/24 Swab from HARDWARE Staphylococcus aureus 01/09/24 Swab from HARDWARE Staphylococcus aureus Assessment/Plan 01/09/2024 operative cultures: Culture [id number]: Lateral tibial plate #1: MRSA Culture [id number]: Lateral tibial plate #2: MRSA Culture [id number]: Right tibial nail: MRSA Culture [id number]: Tibial reamings: MRSA Culture [id number]: Right tibial nonunion: MRSA 53-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 Patient admittedelectively for right lower extremity salvage. Extensive surgical intervention with hardware removal. Evidence of infection on tibial reamings Gram stain. Cultures pending Suspect extensive potential osteomyelitis and underwent extensive debridement and placement of antibiotic cement intramedullary nail. Open wound for so many months raises concern for other pathogens. As I discussed with the patient and will be actually good if the cultures grow organisms. I also discussed patient will need intravenous antibiotics. 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 . . removal of infected hardware right tibial plate and right tibial intramedullary nail. Elevation and advancement of medial gastroc flap over knee. Debridement of osteomyelitis tibia with direct approach as well as reamed irrigation aspiration technique with multiple cultures. Placement of antibiotic sebastian using locked 8 mm intramedullary nail with tobramycin vancomycin antibiotic cement coating. Patient is on vancomycin and Zosyn Anticipate very long treatment course. Explained that patient will need a minimum of 6 to 8 weeks IV therapy which will also be determinedby clinical progress and repeat imaging. May need longer term secondary suppression Recommendations: 1. Continue vancomycin 2. PICC line placed 01/11/2024 3. Anticipate beginning with 6 to 8 weeks of IV therapy. *6-week reassessment date of 02/20/2024 *8-week reassessment date of 03/05/2024 Prefer first phase of treatment to use intravenous antibiotics for sustainable consistent levels directed at significant, extensive MRSA infection of the right tibia. Would consider this limb salvage. 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 Unwilling ? to go to SNF is my understanding since patient has significant home responsibilities toher son I defer the decision regarding IV eligibility and location of its administration to the primary team and patient care assistant. Out patient infusion center not practical and not nearby to patient Although not ideal, I can offer alternative treatment with all oral antibiotics. THUS could consider high-dose Bactrim 2 double strength tablets p.o. 3 times daily. Patient would require 1 month supply and 3 refills bridging follow-up appointment with Dr. Wilder I did discuss briefly with the patient this alternative but for my preference for intravenous therapy for the first 6 to 8 weeks Regarding discharge: - Patient has been scheduled to follow-up with Dr. Wilder on 02/20/2024 at 9:45 AM in [place] [id number] - ID office will call to confirm in person visit or telephone assessment given patient's travel distance from the clinic - After discharge will need weekly CBC plus differential, CRP, and basic metabolic panel faxed to Dr. Wilder at [phone] - I gave patient a business card with my contact information Pato Wilder MD ID Staff I spent 60 minutes in the professional and overall care of this patient. * Monalisa Astorga RN - 01/14/2024 3:58 PM EST Patient's discharge has been discontinued d/t patient being unable to be discharged home with PICC Line history of IVDU. Will speak with this patient about facility placement. Says that oral antibiotics are not an option for her at this time. I will continue to follow with a safe discharge plan. * Silvana Howe PTA - 01/14/2024 3:29 PM EST Physical Therapy Treatment Patient Name: Deidra De La Cruz Today's Date: 01/14/2024 Room: [address] [place], [place] [id number] Time Calculation Start Time: 1357 Stop Time: 1440 Time Calculation (min): 43 min Assessment/Plan PT Assessment PT Assessment Results: Decreased strength, Decreased range of motion, Decreased endurance, Impairedbalance, Decreased mobility Rehab Prognosis: Good Barriers to Discharge: comorbidities Evaluation/Treatment Tolerance: Patient tolerated treatment well Medical Staff Made Aware: Yes Strengths: Ability to acquire knowledge, Attitude of self, Support of extended family/friends Barriers to Participation: Premorbid level of function, Comorbidities, Insight into problems End of Session Communication: Bedside nurse End of Session Patient Position: Bed, 3 rail up, Alarm on PT Plan Treatment/Interventions: Bed mobility, Transfer training, Wheelchair management, Therapeutic activity, Therapeutic exercise, Balance training, Strengthening, Range of motion PT Plan: Ongoing PT PT Frequency: Daily PT Discharge Recommendations: ((Anticipate Low. Would reccomend verifying pt can transfer to her familiar WC when it is available- Friend is bringing tomorrow).) Equipment Recommended upon Discharge: (Pt already owns) PT Recommended Transfer Status: Assist x2 (to chair with arms, likely x1 to chair with removable arm) PT - OK to Discharge: Yes (Meaning pt has been evaluated and d/c recc is in place) Assessment: Patient is progressing Well with therapy this date. Educated pt. on need to continue PTtreatment post discharge from hospital stay. Pt. stood twice this session requiring max-A x 2 to rise from seated EOB to standing. Would continue to benefit from continued skilled PT to address all mobility deficits; Patient remains appropriate for LOW intensity therapy when medically appropriate for discharge from acute stay. Will continue to follow. General Visit Information: PT Visit PT Received On: 01/14/24 Response to Previous Treatment: Patient with no complaints from previous session. Prior to Session Communication: Bedside nurse Patient Position Received: Bed, 4 rail up, Alarm on Family/Caregiver Present: No Subjective Subjective: pt. agreeable to PT treatment this date. Reports no pain. Precautions: Precautions Medical Precautions: Fall precautions R LE WBAT with sebastian wrap Objective Pain: Pain Assessment Pain Assessment: 0-10 0-10 (Numeric) Pain Score: (pain did not interfere with PT session) Cognition: Cognition Overall Cognitive Status: Within Functional Limits Orientation Level: Oriented X4 Static Sitting balance: Static Sitting Balance Static Sitting-Balance Support: Feet supported Static Sitting-Level of Assistance: Close supervision Static Standing Balance: Static Standing Balance Static Standing-Balance Support: Bilateral upper extremity supported Static Standing-Level of Assistance: Maximum assistance x 2 Static Standing-Comment/Number of Minutes: x 2 trials for :15-:20 sec ea Dynamic Sitting Balance: Dynamic Sitting Balance Dynamic Sitting-Balance Support: Bilateral upper extremity supported Dynamic Sitting-Level of Assistance: Contact guard Lines/Tubes/Drains: PICC - Adult 01/11/24 Single lumen Right Basilic vein (Active) Number of days: 2 External Urinary Catheter Female (Active) Number of days: 4 PT Treatments: Therapeutic Exercise Therapeutic Exercise Performed: Yes Therapeutic Exercise Activity 1: heel slides ace LE x 12 (educated pt. on holding at knee flexion end range to apply stretch to quad musclulature) Bed Mobility Bed Mobility: Yes Bed Mobility 1 Bed Mobility 1: Supine to sitting Level of Assistance 1: Minimum assistance Bed Mobility Comments 1: HOB elevated; use of bed railing Bed Mobility 2 Bed Mobility 2: Sitting to supine Level of Assistance 2: Close supervision Bed Mobility Comments 2: HOB elevated Ambulation/Gait Training Ambulation/Gait Training Performed: No Transfers Transfer: Yes Transfer 1 Transfer From 1: Sit to Transfer to 1: Stand Technique 1: Sit to stand Transfer Device 1: Walker Transfer Level of Assistance 1: Maximum assistance (x2 max assist for ace LE blocking and silvia paduse for hip support to alessandro COG over ALEXIS in standing; arm in arm assist bilaterally) Trials/Comments 1: x 2 trials Transfers 2 Transfer From 2: Stand to Transfer to 2: Sit Technique 2: Stand to sit Transfer Device 2: Walker Transfer Level of Assistance 2: Maximum assistance (x2) Trials/Comments 2: x2 trials Stairs Stairs: No Activity tolerance: Activity Tolerance Endurance: Tolerates 10 - 20 min exercise with multiple rests Outcome Measures: [facility] Basic Mobility Turning from your back to your side while in a flat bed without using bedrails: A lot Moving from lying on your back to sitting on the side of a flat bed without using bedrails: A lot Moving to and from bed to chair (including a wheelchair): A lot Standing up from a chair using your arms (e.g. wheelchair or bedside chair): Total To walk in hospital room: Total Climbing 3-5 steps with railing: Total Basic Mobility - Total Score: 9 Education Documentation Precautions, taught by JOSE MARTIN Ohara at 01/14/2024 3:21 PM. Learner: Patient Readiness: Acceptance Method: Explanation Response: Verbalizes Understanding Comment: educated pt. on PT rehab POC and continued PT post d/c Body Mechanics, taught by JOSE MARTIN Ohara at 01/14/2024 3:21 PM. Learner: Patient Readiness: Acceptance Method: Explanation Response: Verbalizes Understanding Comment: educated pt. on PT rehab POC and continued PT post d/c Mobility Training, taught by JOSE MARTIN Ohara at 01/14/2024 3:21 PM. Learner: Patient Readiness: Acceptance Method: Explanation Response: Verbalizes Understanding Comment: educated pt. on PT rehab POC and continued PT post d/c Education Comments No comments found. OP EDUCATION: Encounter Problems Encounter Problems (Active) Mobility WC propulsion >50 feet, Ind (Progressing) Start: 01/09/24 Expected End: 01/23/24 PT Transfers Pt able to perform bed mobility Ind from a flat bed without rail. (Progressing) Start: 01/09/24 Expected End: 01/23/24 bed<>WC, WC<>toilet, Ind (Progressing) Start: 01/09/24 Expected End: 01/23/24 Safety LTG - Patient will adhere to hip precautions during ADL's and transfers (Progressing) Start: 01/10/24 LTG - Patient will demonstrate safety requirements appropriate to situation/environment (Progressing) Start: 01/10/24 LTG - Patient will utilize safety techniques (Progressing) Start: 01/10/24 STG - Patient locks brakes on wheelchair (Progressing) Start: 01/10/24 STG - Patient uses call light consistently to request assistance with transfers (Progressing) Start: 01/10/24 STG - Patient uses gait belt during all transfers (Progressing) Start: 01/10/24 Goal 1 (Progressing) Start: 01/10/24 Goal 2 (Progressing) Start: 01/10/24 Goal 3 (Progressing) Start: 01/10/24 Cosigned by Konstantin Solorzano PT at 01/16/2024 3:21 PM EST * Ramakrishna Styles - 01/14/2024 10:41 AM EST Spiritual Care Visit Clinical Encounter Type Visited With: Patient Routine Visit: Introduction Referral From: Silo Tender Referral To: Summer Child Caregiver Restorationism Encounters Restorationism Needs: Prayer Sacramental Encounters Other Sacrament: P&B Patient received the Sacrament of Reconciliation (Confession) from Fr. Ramakrishna Styles, CatholicChaplain. * Elsa Robledo MD - 01/14/2024 6:46 AM EST Orthopaedic Surgery Progress Note S: NAEON. Pain well controlled. Restarted home pain meds per chronic pain. PICC in place. Cultures growing MRSA. Rec'd vanc x8 weeks per ID. C today. O: BP 121/67 (Patient Position: Lying) Pulse 72 Temp 36.6 C (97.9 F) Resp 16 Ht 1.676 m (5' 6) Wt 83.9 kg (185 lb) SpO2 96% BMI 29.86 kg/m Gen: arousable, NAD, appropriately conversational Cardiac: RRR to peripheral palpation Resp: nonlabored on RA GI: soft, nondistended MSK: Right lower extremity: - Dressing CDI - Compartments soft and compressible - wiggles toes - SILT in Giang/Sa/SP/DP/T distributions - Brisk cap refill, WWP A/P: 53 y.o. female s/p HOME, I&D, abx spacer R tibia on 01/[address] Goodman. Plan: - Weight bearing: WBAT RLE - DVT ppx: SCDs, ASA 81 x 6 weeks - Diet: Regular - Pain: per chronic pain; appreciate recs -> okay to restart home methadone dose and 2.5/5 mg oxy for breakthrough pain - Antibiotics: Vanc/zosyn, pending ID recs - Intra-op cx with MRSA, ID rec'd vanc 1250 BID x8 weeks per ID - PICC placed 01/10 - FEN: HLIV with good PO intake - Bowel Regimen: Colace, senna, dulcolax - PT/OT - Pulm: Encourage IS - Continue home medications: baclofen, bupropion, klonopin, clonidine, keppra, synthroid, zoloft - No lara Dispo: [facility] today, medically ready for dc While inpatient, this patient will be followed by the Orthopaedic trauma team. Please see contact information below: 1st call: Elsa Robledo, PGY-1 2nd call: Mack Sumner, PGY-2 3rd call: Daniele Barnett, PGY-3 Please call the ortho pager ([phone]) on weekends and between 6p-7a on weekdays. Cosigned by Cruz Goodman MD at 01/14/2024 11:04 AM EST * Dalila Avila RN - 01/13/2024 1:15 PM EST Care Transitions Progress Note: Patient was seen by [facility] today at bedside to teach the process of Vanco infusion. The result of the session was that patient is not safe to gohome and self administer. The [facility] care coordinator will repeat teaching tomorrow 01/13 with patient's niece. If niece is competent patient may be able to dc on 01/13. Multiple referrals were made to home care agencies without any being able to accept. [facility]. Patient will be notified by the clinic of when to come in for her line care and labs. * Daniele Barnett MD - 01/13/2024 6:08 AM EST Orthopaedic Surgery Progress Note S: NAEON. Pain well controlled. Restarted home pain meds per chronic pain. PICC in place. Cultures growing MRSA. Rec'd vanc x8 weeks per ID. [facility] today. O: BP 127/75 Pulse 69 Temp 35.9 C (96.6 F) (Temporal) Resp 18 Ht 1.676 m (5' 6) Wt 83.9 kg (185 lb) SpO2 94% BMI 29.86 kg/m Gen: arousable, NAD, appropriately conversational Cardiac: RRR to peripheral palpation Resp: nonlabored on RA GI: soft, nondistended MSK: Right lower extremity: - Dressing CDI - Compartments soft and compressible - Fires TA/GS/EHL - SILT in Giang/Sa/SP/DP/T distributions - Brisk cap refill, WWP A/P: 53 y.o. female s/p HOME, I&D, abx spacer R tibia on 01/[address] Goodman. Plan: - Weight bearing: WBAT RLE - DVT ppx: SCDs, ASA 81 x 6 weeks - Diet: Regular - Pain: per chronic pain; appreciate recs -> okay to restart home methadone dose and 2.5/5 mg oxy for breakthrough pain - Antibiotics: Vanc/zosyn, pending ID recs - Intra-op cx with MRSA, rec'd vanc 1250 BID x8 weeks per ID - PICC placed 01/10 - Consult to ID, appreciate recs - FEN: HLIV with good PO intake - Bowel Regimen: Colace, senna, dulcolax - PT/OT - Pulm: Encourage IS - Continue home medications: baclofen, bupropion, klonopin, clonidine, keppra, synthroid, zoloft - No lara Dispo: [facility] today, medically ready for dc While inpatient, this patient will be followed by the Orthopaedic trauma team. Please see contact information below: 1st call: Elsa Robledo, PGY-1 2nd call: Mack Sumner, PGY-2 3rd call: Daniele Barnett, PGY-3 Please call the ortho pager ([phone]) on weekends and between 6p-7a on weekdays. Cosigned by Cruz Goodman MD at 01/14/2024 11:04 AM EST * Silvana Howe PTA - 01/12/2024 11:25 AM EST Physical Therapy Physical Therapy Treatment Patient Name: Deidra De La Cruz Department: [place] [id number] Room: [address] [place] [address] Today's Date: 01/12/2024 Time Calculation Start Time: 1008 Stop Time: 1031 Time Calculation (min): 23 min Assessment/Plan PT Assessment PT Assessment Results: Decreased strength, Decreased range of motion, Decreased endurance, Impairedbalance, Decreased mobility Rehab Prognosis: Good Barriers to Discharge: comorbidities Evaluation/Treatment Tolerance: Patient tolerated treatment well Medical Staff Made Aware: Yes Strengths: Ability to acquire knowledge, Attitude of self, Support of Caregivers Barriers to Participation: Comorbidities End of Session Communication: Bedside nurse Assessment Comment: Focus of therapy session on STS trans with Max A x 1 and increased cues for safety and sequencing. Believe patient in close to her baseline function and continue to rec LOW intensity PT. End of Session Patient Position: Bed, 3 rail up, Alarm off, caregiver present PT Plan Treatment/Interventions: Bed mobility, Transfer training, Wheelchair management, Therapeutic activity, Therapeutic exercise, Balance training, Strengthening, Range of motion PT Plan: Ongoing PT PT Frequency: Daily PT Discharge Recommendations: ((Anticipate Low. Would reccomend verifying pt can transfer to her familiar WC when it is available- Friend is bringing tomorrow).) Equipment Recommended upon Discharge: (Pt already owns) PT Recommended Transfer Status: Assist x2 (to chair with arms, likely x1 to chair with removable arm) PT - OK to Discharge: Yes (Meaning pt has been evaluated and d/c recc is in place) General Visit Information: PT Visit PT Received On: 01/12/24 Response to Previous Treatment: Patient with no complaints from previous session. General Family/Caregiver Present: No Prior to Session Communication: Bedside nurse Patient Position Received: Bed, 3 rail up, Alarm off, not on at start of session Preferred Learning Style: visual, verbal General Comment: Pt supine in bed upon arrival. Pt pleasant and agreeable to therapy. Subjective Precautions: Precautions LE Weight Bearing Status: (R LE) Medical Precautions: Fall precautions Objective Pain: Pain Assessment Pain Assessment: 0-10 0-10 (Numeric) Pain Score: (pain did not appear to limit therapy session) Cognition: Cognition Overall Cognitive Status: Within Functional Limits Arousal/Alertness: Appropriate responses to stimuli Orientation Level: Oriented X4 Coordination: Movements are Fluid and Coordinated: Yes Postural Control: Postural Control Postural Control: Within Functional Limits Static Sitting Balance Static Sitting-Balance Support: Feet supported Static Sitting-Level of Assistance: Close supervision Static Sitting-Comment/Number of Minutes: sitting EOB Dynamic Sitting Balance Dynamic Sitting-Balance Support: Bilateral upper extremity supported Dynamic Sitting-Level of Assistance: Contact guard Dynamic Sitting-Balance: (ace LE ther ex) Dynamic Sitting-Comments: while sitting EOB Static Standing Balance Static Standing-Balance Support: Bilateral upper extremity supported Static Standing-Level of Assistance: Maximum assistance Static Standing-Comment/Number of Minutes: with FWW Activity Tolerance: Activity Tolerance Endurance: Tolerates 10 - 20 min exercise with multiple rests Treatments: Therapeutic Exercise Therapeutic Exercise Performed: Yes Therapeutic Exercise Activity 1: supine ace LE: AP x 10 (assist required for full ROM on R due to decreased DF strength) Therapeutic Exercise Activity 2: Seated ace LE: LAQ x 10 Bed Mobility Bed Mobility: Yes Bed Mobility 1 Bed Mobility 1: Supine to sitting, Sitting to supine Level of Assistance 1: Close supervision Bed Mobility Comments 1: HOB elevated Bed Mobility 2 Bed Mobility 2: Scooting Level of Assistance 2: Contact guard Bed Mobility Comments 2: able to perfrom 3-4 lateral scoots to the L while seated EOB Transfers Transfer: Yes Transfer 1 Transfer From 1: Sit to, Stand to Transfer to 1: Stand, Sit Technique 1: Sit to stand, Stand to sit Transfer Device 1: Walker Transfer Level of Assistance 1: Maximum assistance, Moderate verbal cues Trials/Comments 1: required x 2 attempts to arise and achieve upright posture Outcome Measures: [facility] Basic Mobility Turning from your back to your side while in a flat bed without using bedrails: A little Moving from lying on your back to sitting on the side of a flat bed without using bedrails: A little Moving to and from bed to chair (including a wheelchair): A little Standing up from a chair using your arms (e.g. wheelchair or bedside chair): A lot To walk in hospital room: Total Climbing 3-5 steps with railing: Total Basic Mobility - Total Score: 13 Education Documentation Precautions, taught by Silvana Howe PTA at 01/12/2024 11:23 AM. Learner: Patient Readiness: Acceptance Method: Explanation Response: Verbalizes Understanding Comment: Reviewed POC and safety with trans Body Mechanics, taught by Silvana Howe PTA at 01/12/2024 11:23 AM. Learner: Patient Readiness: Acceptance Method: Explanation Response: Verbalizes Understanding Comment: Reviewed POC and safety with trans Mobility Training, taught by Silvana Howe PTA at 01/12/2024 11:23 AM. Learner: Patient Readiness: Acceptance Method: Explanation Response: Verbalizes Understanding Comment: Reviewed POC and safety with trans Education Comments No comments found. OP EDUCATION: Encounter Problems Encounter Problems (Active) Mobility WC propulsion >50 feet, Ind (Progressing) Start: 01/09/24 Expected End: 01/23/24 PT Transfers Pt able to perform bed mobility Ind from a flat bed without rail. (Progressing) Start: 01/09/24 Expected End: 01/23/24 bed<>WC, WC<>toilet, Ind (Progressing) Start: 01/09/24 Expected End: 01/23/24 Safety LTG - Patient will adhere to hip precautions during ADL's and transfers Start: 01/10/24 LTG - Patient will demonstrate safety requirements appropriate to situation/environment Start: 01/10/24 LTG - Patient will utilize safety techniques Start: 01/10/24 STG - Patient locks brakes on wheelchair Start: 01/10/24 STG - Patient uses call light consistently to request assistance with transfers Start: 01/10/24 STG - Patient uses gait belt during all transfers Start: 01/10/24 Goal 1 Start: 01/10/24 Goal 2 Start: 01/10/24 Goal 3 Start: 01/10/24 Cosigned by Konstantin Solorzano PT at 01/12/2024 3:56 PM EST * Randolph Stephens PharmD - 01/12/2024 10:15 AM EST Vancomycin Dosing by Pharmacy- FOLLOW UP Deidra De La Cruz is a 53 y.o. year old female who Pharmacy has been consulted for vancomycin dosing for surgical prophylaxis. Based on the patient's indication and renal status this patient is being dosed based on a goal AUC of 400-600. Renal function is currently stable. Current vancomycin dose: 1250 mg given every 12 hours Estimated vancomycin AUC on current dose: 479 mg/L.hr Visit Vitals BP 135/73 Pulse 73 Temp 36.5 C (97.7 F) (Tympanic) Resp 18 Lab Results Component Value Date CREATININE 0.81 01/10/2024 CREATININE 0.84 01/09/2024 CREATININE 0.71 12/30/2023 Patient weight is as follows: Vitals: 01/09/24 0640 Weight: 83.9 kg (185 lb) Cultures: Susceptibility data for the encounter in last 14 days. Collected Specimen Info Organism Clindamycin Erythromycin Oxacillin Tetracycline Trimethoprim/Sulfamethoxazole Vancomycin 01/09/24 Swab from BONE RESECTION Methicillin Resistant Staphylococcus aureus (MRSA) R R R S S S 01/09/24 Swab from BONE CURETTINGS (DECAL) Staphylococcus aureus 01/09/24 Swab from NAIL Staphylococcus aureus 01/09/24 Swab from HARDWARE Staphylococcus aureus 01/09/24 Swab from HARDWARE Staphylococcus aureus I/O last 3 completed shifts: In: 750 (8.9 mL/kg) [IV Piggyback:750] Out: 600 (7.2 mL/kg) [Urine:600 (0.2 mL/kg/hr)] Weight: 83.9 kg I/O during current shift: No intake/output data recorded. Temp (24hrs), Av.6 C (97.8 F), Min:36.3 C (97.3 F), Max:36.8 C (98.2 F) Assessment/Plan Within goal AUC range. Continue current vancomycin regimen. This dosing regimen is predicted by [employer] to result in the following pharmacokinetic parameters: Loading dose: N/A Regimen: 1250 mg IV every 12 hours. Start time: 21:02 on 01/12/2024 Exposure target: AUC24 (range)400-600 mg/L.hr [id number]: 479 mg/L.hr AUC24,ss: 481 mg/L.hr Probability of AUC24 > 400: 91 % Ctrough,ss: 13.3 mg/L Probability of Ctrough,ss > 20: 1 % The next level will be obtained on 01/14 at 8am. May be obtained sooner if clinically indicated. Will continue to monitor renal function daily while on vancomycin and order serum creatinine at least every 48 hours if not already ordered. Follow for continued vancomycin needs, clinical response, and signs/symptoms of toxicity. Randolph Stephens * Daniele Barnett MD - 01/12/2024 5:27 AM EST Orthopaedic Surgery Progress Note S: NAEON. Pain well controlled. Restarted home pain meds per chronic pain. PICC yesterday. Culturesgrowing MRSA. Pending final ID recs. O: BP 127/74 Pulse 78 Temp 36.8 C (98.2 F) Resp 16 Ht 1.676 m (5' 6) Wt 83.9 kg (185 lb) SpO2 95% BMI 29.86 kg/m Gen: arousable, NAD, appropriately conversational Cardiac: RRR to peripheral palpation Resp: nonlabored on RA GI: soft, nondistended MSK: Right lower extremity: - Dressing CDI - Compartments soft and compressible - Fires TA/GS/EHL - SILT in Giang/Sa/SP/DP/T distributions - Brisk cap refill, WWP A/P: 53 y.o. female s/p HOME, I&D, abx spacer R tibia on 01/[address] Goodman. Plan: - Weight bearing: WBAT RLE - DVT ppx: SCDs, ASA 81 x 6 weeks - Diet: Regular - Pain: per chronic pain; appreciate recs -> okay to restart home methadone dose and 2.5/5 mg oxy for breakthrough pain - Antibiotics: Vanc/zosyn, pending ID recs - Intra-op cx with MRSA, pending final ID recs - PICC placed 01/10 - Consult to ID, appreciate recs - FEN: HLIV with good PO intake - Bowel Regimen: Colace, senna, dulcolax - PT/OT - Pulm: Encourage IS - Continue home medications: baclofen, bupropion, klonopin, clonidine, keppra, synthroid, zoloft - No lara Dispo: pending final ID recs, anticipate HHC today While inpatient, this patient will be followed by the Orthopaedic trauma team. Please see contact information below: 1st call: Elsa Robledo, PGY-1 2nd call: Mack Sumner, PGY-2 3rd call: Daniele Barnett, PGY-3 Please call the [employer] pager ([phone]) on weekends and between 6p-7a on weekdays. Cosigned by Cruz Goodman MD at 01/14/2024 11:04 AM EST * Arianna Pak, ATHLETIC EQUIPMENT CUSTODIAN - 01/11/2024 12:02 PM EST Physical Therapy Physical Therapy Treatment Patient Name: Deidra De La Cruz Department: [place] [id number] Room: [id number] Today's Date: 01/11/2024 Time Calculation Start Time: 1035 Stop Time: 1110 Time Calculation (min): 35 min Assessment/Plan PT Assessment PT Assessment Results: Decreased strength, Decreased mobility Evaluation/Treatment Tolerance: Patient tolerated treatment well End of Session Communication: Bedside nurse Assessment Comment: Pt completed WC activity this date propelling WC 200' with SBA. Pt able to transfer from bed to WC<>WC to bed with Min A to hold WC in place. End of Session Patient Position: Bed, 3 rail up, Alarm off, caregiver present PT Plan Treatment/Interventions: Bed mobility, Transfer training, Wheelchair management, Therapeutic activity, Therapeutic exercise, Balance training, Strengthening, Range of motion PT Plan: Ongoing PT PT Frequency: Daily PT Discharge Recommendations: ((Anticipate Low. Would reccomend verifying pt can transfer to her familiar WC when it is available- Friend is bringing tomorrow).) Equipment Recommended upon Discharge: (Pt already owns) PT Recommended Transfer Status: Assist x2 (to chair with arms, likely x1 to chair with removable arm) PT - OK to Discharge: Yes (Meaning pt has been evaluated and d/c recc is in place) General Visit Information: PT Visit PT Received On: 01/11/24 General Prior to Session Communication: Bedside nurse Patient Position Received: Bed, 3 rail up, Alarm on General Comment: Pt supine in bed upon arrival. Pt pleasant and agreeable to therapy. Subjective Precautions: Precautions LE Weight Bearing Status: Weight Bearing as Tolerated Medical Precautions: Fall precautions Vital Signs (Past 2hrs) Objective Pain: Cognition: Cognition Overall Cognitive Status: Within Functional Limits Coordination: Activity Tolerance: Activity Tolerance Endurance: Tolerates 30 min exercise with multiple rests Treatments: Therapeutic Activity Therapeutic Activity Performed: Yes Therapeutic Activity 1: Increased time to complete bed mobility and scoot pivot transfers but able to complete with SBA. Bed Mobility Bed Mobility: Yes Bed Mobility 1 Bed Mobility 1: Supine to sitting Level of Assistance 1: Close supervision Bed Mobility 2 Bed Mobility 2: Scooting Level of Assistance 2: Independent Transfers Transfer: Yes Transfer 1 Transfer From 1: Bed to Transfer to 1: Wheelchair Technique 1: Sit pivot, Lateral Transfer Level of Assistance 1: Minimum assistance Trials/Comments 1: Min A to hold WC in place during transfer. Transfers 2 Transfer From 2: Wheelchair to Transfer to 2: Bed Technique 2: Sit pivot, Lateral Transfer Level of Assistance 2: Minimum assistance Trials/Comments 2: Min A to hold WC in place. Wheelchair Activities Wheelchair Type: Standard Wheelchair Cushion: None Propulsion: Yes Propulsion Type 1: Manual Level 1: Level tile Method 1: Right upper extremity, Left upper extremity Level of Assistance 1: Close supervision Description/Details 1: 200' Outcome Measures: [facility] Basic Mobility Turning from your back to your side while in a flat bed without using bedrails: None Moving from lying on your back to sitting on the side of a flat bed without using bedrails: A little Moving to and from bed to chair (including a wheelchair): A little Standing up from a chair using your arms (e.g. wheelchair or bedside chair): A lot To walk in hospital room: Total Climbing 3-5 steps with railing: Total Basic Mobility - Total Score: 14 Education Documentation Precautions, taught by Arianna Pak PTA at 01/11/2024 11:58 AM. Learner: Patient Readiness: Acceptance Method: Explanation Response: Verbalizes Understanding Body Mechanics, taught by Arianna Pak PTA at 01/11/2024 11:58 AM. Learner: Patient Readiness: Acceptance Method: Explanation Response: Verbalizes Understanding Mobility Training, taught by Arianna Pak PTA at 01/11/2024 11:58 AM. Learner: Patient Readiness: Acceptance Method: Explanation Response: Verbalizes Understanding Education Comments No comments found. OP EDUCATION: Encounter Problems Encounter Problems (Active) Mobility WC propulsion >50 feet, Ind (Progressing) Start: 01/09/24 Expected End: 01/23/24 PT Transfers Pt able to perform bed mobility Ind from a flat bed without rail. (Progressing) Start: 01/09/24 Expected End: 01/23/24 bed<>WC, WC<>toilet, Ind (Progressing) Start: 01/09/24 Expected End: 01/23/24 Safety LTG - Patient will adhere to hip precautions during ADL's and transfers Start: 01/10/24 LTG - Patient will demonstrate safety requirements appropriate to situation/environment Start: 01/10/24 LTG - Patient will utilize safety techniques Start: 01/10/24 STG - Patient locks brakes on wheelchair Start: 01/10/24 STG - Patient uses call light consistently to request assistance with transfers Start: 01/10/24 STG - Patient uses gait belt during all transfers Start: 01/10/24 Goal 1 Start: 01/10/24 Goal 2 Start: 01/10/24 Goal 3 Start: 01/10/24 Cosigned by Britt Greenfield, PT at 01/12/2024 11:07 AM EST * Daniele Barnett MD - 01/11/2024 10:20 AM EST Orthopaedic Surgery Progress Note S: NAEON. Pain well controlled. Restarted home pain meds per chronic pain. Pending final ID recs. O: BP 116/77 (BP Location: Right arm, Patient Position: Lying) Pulse 72 Temp 36.7 C (98.1 F) (Temporal) Resp 16 Ht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 [id number] Miscellaneous Notes* Telephone Encounter - Bijan Elmore MD - 04/29/2022 5:12 PM EDT The following approved medication requests have been transmitted electronically. Requested Prescriptions Signed Prescriptions Disp Refills levETIRAcetam (KEPPRA) 500 mg tablet 60 tablet 2 Sig: take 1 tablet by mouth twice a day Authorizing Provider: BIJAN ELMORE MD * Telephone Encounter - Sandi Blanco MA - 04/29/2022 9:20 AM EDT [facility] Patient has been identified by name and date of : Yes Patient aware RX will be sent to pharmacy. No need to notify patient. Patient phones for refill(s): Requested Prescriptions Pending Prescriptions Disp Refills levETIRAcetam (KEPPRA) 500 mg tablet [Pharmacy Med Name: LEVETIRACETAM 500 MG TABLET] 60 tablet 2 Sig: take 1 tablet by mouth twice a day Date of last office visit : 09/17/2021 Date of next office visit : Visit date not found Last 2 Encounter Wt Readings: Date: Wt: 09/17/2021 83.9 kg (185 lb) 06/26/2021 0 kg () Not applicable Please advise. Sandi Blanco MA documented in this encounterKing'S [facility] [place]03-07-2023 NoteTalked on phone, she will think about seeing Dr. Ware regarding amputation. But I told her no hip procedure until this right sided infection is taken care of. She will call to discuss seeing Dr. Ware going forward. Nothing for you to do at this point.[facility]03-01-2023 Telephone encounter Note* Telephone Encounter - Carlos Sapp - 04/17/2022 6:50 PM EST Name of caller requesting page:[facility] Phone Number of caller: [phone] Facility requesting page: Microbiology Reason for Page: Knee fluid Provider paged: Practice Name of paged provider: Orthopedics Page Placed to #: N/A Time Page was sent or provider contacted: 6:49 Pm Page Content: [facility] with Microbiology at [facility] is requesting a call back [phone] in regards to knee fluid that she received that was collected wrong. please advise [facility] [id number] Miscellaneous Notes* Telephone Encounter - Carlos Sapp - 04/17/2022 6:50 PM EST Name of caller requesting page:[facility] Phone Number of caller: [phone] Facility requesting page: Microbiology Reason for Page: Knee fluid Provider paged: Dr.Rabe Quintanilla Name of paged provider: Orthopedics Page Placed to #: N/A Time Page was sent or provider contacted: 6:49 Pm Page Content: [facility] with [facility] at [facility] is requesting a call back [phone] in regards to knee fluid that she received that was collected wrong. please advise documented in this [facility]03-01-2023 History of Present illness Narrative* Cass Guzman MD - 04/17/2022 2:15 PM EST Images from the original note were not included. [facility] [place] [address] [place] [address] Dept: [phone] Dept 04/17/2022 Chief Complaint Patient presents with Follow-up FU: Left hip pain Subjective: Deidra is a 52 y.o. female who presents for repeat evaluation of the left hip. At the last visit weinitiated non-operative treatment consisting of... USG aspiration of the right knee from Dr. Salazar Cultures (aer/anaer) and cell count with differential NSAID's OTC for pain control Consult with Dr. Ware The patient reports the treatment has not provided significant prolonged relief. Review of Systems Past Medical History: Diagnosis Date Arthritis Cancer (CMS/HCC) (HCC) Cervical cancer (CMS/HCC) (HCC) Drug abuse (CMS/HCC) (HCC) Hepatitis C Hepatitis C without hepatic coma Necrotizing fasciitis of forearm (CMS/HCC) (HCC) Traumatic subarachnoid bleed with LOC of 6 hours to 24 hours, initial encounter ([facility]) 12/19/2020 Past Surgical History: Procedure Laterality Date ARM DEBRIDEMENT Right 01/06/2019 ARM DEBRIDEMENT Right 01/05/2019 OTHER SURGICAL HISTORY Right 02/08/2021 split thickness skin graft I&D wound vac right knee OTHER SURGICAL HISTORY 02/13/2021 irrigation and debridement RLE wound Social History Socioeconomic History Marital status: Single Spouse name: Not on file Number of children: Not on file Years of education: Not on file Highest education level: Not on file Occupational History Not on file Tobacco Use Smoking status: Every Day Packs/day: 0.50 Types: Cigarettes Smokeless tobacco: Never Substance and Sexual Activity Alcohol use: Never Drug use: Not Currently Types: IV, Opiates Sexual activity: Not on file Other Topics Concern Not on file Social History Narrative Merged History Encounter Social Determinants of Health Financial Resource Strain: Not on file Food Insecurity: Not on file Transportation Needs: Not on file Physical Activity: Not on file Stress: Not on file Social Connections: Not on file Intimate Partner Violence: Not on file Housing Stability: Not on file Family History Problem Relation Name Age of Onset Kidney disease Mother Allergies Allergen Reactions Penicillins Other, Shortness of breath and Unknown Objective: Ht 5' 5 (1.651 m) Wt 180 lb (81.6 kg) BMI 29.95 kg/m Pt is a WD/WN female in no acute distress. She appears her stated age. Mood and affect are normal. She is A&O x 3. Gait: antalgic. RIGHT HIP: Skin is warm, dry and intact. There are no rashes, lesions, or obvious scars. No tenderness to palpation. Greater trochanter is not tender. ROM shows flexion 120, IR 20, ER 40, without pain. Stinchfield exam: negative. +PF/DF/EHL. SILT distally. DP/PT palpable. Straight leg raise negative for inciting radicular symptoms. LEFT HIP: Skin is warm, dry and intact. There are no rashes, lesions, or obvious scars. No tenderness to palpation. Greater trochanter is not tender. ROM shows flexion 90, IR 10, ER 20. ,with pain. Stinchfield exam: positive. +PF/DF/EHL. SILT distally. DP/PT palpable. Straight leg raise negative for inciting radicular symptoms. Difficult to appreciate leg length discrepancy due to contracture of right knee. Diffuse erythema to rigth knee and RLE, with multiple open wounds with active pus drainage. ROM limited due to contracture and deficient extensor mechanism. Lab Findings: RELEVANT LABS: Lab Results Component Value Date SEDRATE 53 (H) 10/08/2021 Lab Results Component Value Date CRP 40.8 (H) 10/08/2021 Radiology Findings: 04/17/2022 images obtained by outside radiology department independently reviewedby myself today in office. XRAYS: Indication: left hip pain Exam Ordered: Radiographs include an anteroposterior pelvis, an anteroposterior and lateral view ofthe proximal femur including the hip joint. Details of Examination: Exam shows evidence of avascular necrosis with complete loss of the femoralhead. Significant shortening of extremity, worsened in interval films. Posterior acetabular plates and screws noted. No other significant findings are noted. Impression: Left hip avascular necrosis, complete femoral head obliteration, retained acetabular hardware, left hip Assessment 1. Type I or II open fracture of proximal end of right tibia, unspecified fracture morphology, sequela 2. Left hip pain 3. Acute pain of right knee Plan Aspiration in office of right knee in office today, will send for cell count and cultures Discussed surgical options for hip, but at this time my main concern is active infection of the right knee and leg. Will discuss findings of aspirate and leg wounds with colleagues, Dr. Ware and Mirella With a chronic septic knee, presumed infection of entire tibia with retained nail and plate, tenuous soft tissues with previous flap coverage, and a chronic extensor mechanism deficiency this presents a significant challenge to attempt any salvage procedures. This includes removal of hardware, I&D, placement of antibiotic spacer. Then subsequent hinged TKA reimplantation with a marlex mesh extensor reconstruction. Given this patient's situation with the left hip and high risk of dissatisfaction, functional limitations, and possible repeat infections, I am hesitant to consider any salvage procedures for the right leg. Given active infection she is not a good candidate for left conversiontotal hip at this time, as well. I will discuss with colleagues regarding the case, and likely refer to Dr. Ware to discuss amputation. I will inform patient of results and what is discussed betweenher care team. Procedure Note: After risks and benefits of intra-articular aspiration of the knee were reviewed with the patient, she elected to proceed. After sterile alcohol prep, an 18g needle was used to aspirate, 3mL of blood mixed with viscous purulent fluid from inferomedial portal of the left knee. The patient tolerated the aspiration well. A band-aid was placed. Post-aspiration instructions were reviewed. Electronically signed by Cass Guzman M.D. 04/17/2022 at 3:38 PM. documented in this [facility]03-01-2023 History of Present illness Narrative* Cass Guzman MD - 04/17/2022 2:15 PM EST Images from the original note were not included. [facility] [address] [place] [address] Dept: [phone] Dept 04/17/2022 Chief Complaint Patient presents with Follow-up FU: Left hip pain Subjective: Deidra is a 52 y.o. female who presents for repeat evaluation of the left hip. At the last visit weinitiated non-operative treatment consisting of... USG aspiration of the right knee from Dr. Salazar Cultures (aer/anaer) and cell count with differential NSAID's OTC for pain control Consult with Dr. Ware The patient reports the treatment has not provided significant prolonged relief. Review of Systems Past Medical History: Diagnosis Date Arthritis Cancer (CMS/HCC) (HCC) Cervical cancer (CMS/HCC) (HCC) Drug abuse (CMS/HCC) (HCC) Hepatitis C Hepatitis C without hepatic coma Necrotizing fasciitis of forearm (CMS/HCC) (HCC) Traumatic subarachnoid bleed with LOC of 6 hours to 24 hours, initial encounter ([facility]) 12/19/2020 Past Surgical History: Procedure Laterality Date ARM DEBRIDEMENT Right 01/06/2019 ARM DEBRIDEMENT Right 01/05/2019 OTHER SURGICAL HISTORY Right 02/08/2021 split thickness skin graft I&D wound vac right knee OTHER SURGICAL HISTORY 02/13/2021 irrigation and debridement RLE wound Social History Socioeconomic History Marital status: Single Spouse name: Not on file Number of children: Not on file Years of education: Not on file Highest education level: Not on file Occupational History Not on file Tobacco Use Smoking status: Every Day Packs/day: 0.50 Types: Cigarettes Smokeless tobacco: Never Substance and Sexual Activity Alcohol use: Never Drug use: Not Currently Types: IV, Opiates Sexual activity: Not on file Other Topics Concern Not on file Social History Narrative Merged History Encounter Social Determinants of Health Financial Resource Strain: Not on file Food Insecurity: Not on file Transportation Needs: Not on file Physical Activity: Not on file Stress: Not on file Social Connections: Not on file Intimate Partner Violence: Not on file Housing Stability: Not on file Family History Problem Relation Name Age of Onset Kidney disease Mother Allergies Allergen Reactions Penicillins Other, Shortness of breath and Unknown Objective: Ht 5' 5 (1.651 m) Wt 180 lb (81.6 kg) BMI 29.95 kg/m Pt is a WD/WN female in no acute distress. She appears her stated age. Mood and affect are normal. She is A&O x 3. Gait: antalgic. RIGHT HIP: Skin is warm, dry and intact. There are no rashes, lesions, or obvious scars. No tenderness to palpation. Greater trochanter is not tender. ROM shows flexion 120, IR 20, ER 40, without pain. Stinchfield exam: negative. +PF/DF/EHL. SILT distally. DP/PT palpable. Straight leg raise negative for inciting radicular symptoms. LEFT HIP: Skin is warm, dry and intact. There are no rashes, lesions, or obvious scars. No tenderness to palpation. Greater trochanter is not tender. ROM shows flexion 90, IR 10, ER 20. ,with pain. Stinchfield exam: positive. +PF/DF/EHL. SILT distally. DP/PT palpable. Straight leg raise negative for inciting radicular symptoms. Difficult to appreciate leg length discrepancy due to contracture of right knee. Diffuse erythema to rigth knee and RLE, with multiple open wounds with active pus drainage. ROM limited due to contracture and deficient extensor mechanism. Lab Findings: RELEVANT LABS: Lab Results Component Value Date SEDRATE 53 (H) 10/08/2021 Lab Results Component Value Date CRP 40.8 (H) 10/08/2021 Radiology Findings: 04/17/2022 images obtained by outside radiology department independently reviewedby myself today in office. XRAYS: Indication: left hip pain Exam Ordered: Radiographs include an anteroposterior pelvis, an anteroposterior and lateral view ofthe proximal femur including the hip joint. Details of Examination: Exam shows evidence of avascular necrosis with complete loss of the femoralhead. Significant shortening of extremity, worsened in interval films. Posterior acetabular plates and screws noted. No other significant findings are noted. Impression: Left hip avascular necrosis, complete femoral head obliteration, retained acetabular hardware, left hip Assessment 1. Type I or II open fracture of proximal end of right tibia, unspecified fracture morphology, sequela 2. Left hip pain 3. Acute pain of right knee Plan Aspiration in office of right knee in office today, will send for cell count and cultures Discussed surgical options for hip, but at this time my main concern is active infection of the right knee and leg. Will discuss findings of aspirate and leg wounds with colleagues, Dr. Ware and Mirella With a chronic septic knee, presumed infection of entire tibia with retained nail and plate, tenuous soft tissues with previous flap coverage, and a chronic extensor mechanism deficiency this presents a significant challenge to attempt any salvage procedures. This includes removal of hardware, I&D, placement of antibiotic spacer. Then subsequent hinged TKA reimplantation with a marlex mesh extensor reconstruction. Given this patient's situation with the left hip and high risk of dissatisfaction, functional limitations, and possible repeat infections, I am hesitant to consider any salvage procedures for the right leg. Given active infection she is not a good candidate for left conversiontotal hip at this time, as well. I will discuss with colleagues regarding the case, and likely refer to Dr. Ware to discuss amputation. I will inform patient of results and what is discussed betweenher care team. Significant time spent reviewing other providers notes and discussion with other physicians regarding her case. New diagnosis today with likely septic knee with unknown prognosis. Procedure Note: After risks and benefits of intra-articular aspiration of the knee were reviewed with the patient, she elected to proceed. After sterile alcohol prep, an 18g needle was used to aspirate, 3mL of blood mixed with viscous purulent fluid from inferomedial portal of the left knee. The patient tolerated the aspiration well. A band-aid was placed. Post-aspiration instructions were reviewed. Electronically signed by Cass Guzman M.D. 04/17/2022 at 3:38 PM. documented in this [facility]03-01-2023 Miscellaneous Notes* Addendum Note - Cass Guzman MD - 04/17/2022 2:15 PM ESTAddended by: CASS GUZMAN on: 04/19/2022 03:28 PM Modules accepted: Level of Service documented in this [facility]03-01-2023 Note* Addendum Note - Cass Guzman MD - 04/17/2022 2:15 PM ESTAddended by: CASS GUZMAN on: 04/19/2022 03:28 PM Modules accepted: Level of Service [id number] Infectious Diseases Attending Outpatient Progress Note HISTORYOF PRESENT ILLNESS 52 year old female presents for a follow up visit after multiple issues with trying to get to the office. Last time I saw her we did an audio visit and at that time she was referred to me by Dr. Ware for wound infection of her RLE. She had a polymicrobial infection at that time and she was placed on 2-3 weeks of oral doxycycline/cipro. Cultures with + MRSA/E.coli and Providencia. She has history of trauma and multiple injuries to right LE including right tibial plateau fracture, intramedullary nailing of right tibial shaft fracture and gastrocnemius flap surgery to cover the wounds. She has a history of exposed hardware and completed a course of IV antibiotics at [facility] followed by a tail of oral cefdinir and doxycycline. Denies fevers, chills, nausea, or vomiting. No chest pain or SOB. Has ongoing dry skin of RLE with some scabs that she sometimes picks or they fall off when she changes her dressings and then the wound bleeds. She currently is not on any antibiotics and is following with Dr. Boothe from wound care. Her wounds are being managed with use of aquaphor and manage dry skin and lymphedema wraps. She is awaiting left hip total arthroplasty with Dr. Guzman. Overall feels well. Presents in wheelchair today. Review of Systems Constitutional: Positive for activity change. Negative for fatigue and fever. HENT: Negative for congestion and dental problem. Respiratory: Negative for cough and shortness of breath. Cardiovascular: Positive for leg swelling. Endocrine: Negative for cold intolerance and heat intolerance. Genitourinary: Negative for difficulty urinating and dyspareunia. Musculoskeletal: Positive for arthralgias and gait problem. Skin: Positive for rash. Psychiatric/Behavioral: Negative for agitation, behavioral problems and confusion. Social History Socioeconomic History Marital status: Single Spouse name: Not on file Number of children: Not on file Years of education: Not on file Highest education level: Not on file Occupational History Not on file Tobacco Use Smoking status: Every Day Packs/day: 0.50 Types: Cigarettes Smokeless tobacco: Never Substance and Sexual Activity Alcohol use: Never Drug use: Not Currently Types: IV, Opiates Sexual activity: Not on file Other Topics Concern Not on file Social History Narrative Merged History Encounter Social Determinants of Health Financial Resource Strain: Not on file Food Insecurity: Not on file Transportation Needs: Not on file Physical Activity: Not on file Stress: Not on file Social Connections: Not on file Intimate Partner Violence: Not on file Housing Stability: Not on file Past Medical History: Diagnosis Date Arthritis Cancer (CMS/HCC) (HCC) Cervical cancer (CMS/HCC) (HCC) Drug abuse (CMS/HCC) (HCC) Hepatitis C Hepatitis C without hepatic coma Necrotizing fasciitis of forearm (CMS/HCC) (HCC) Traumatic subarachnoid bleed with LOC of 6 hours to 24 hours, initial encounter (HCC) 12/19/2020 Family History Problem Relation Name Age of Onset Kidney disease Mother Visit Vitals BP (!) 130/100 (BP Location: Left arm, Patient Position: Sitting, BP Cuff Size: Large adult) Pulse 72 Temp 36.6 ?C (97.9 ?F) (Temporal) Wt Readings from Last 3 Encounters: 04/03/22 81.6 kg (180 lb) 01/31/22 81.6 kg (180 lb) 12/24/21 79.4 kg (175 lb) Physical Exam Constitutional: Appearance: Normal appearance. She is not ill-appearing. Comments: Presents in a wheelchair, transfers on own but has limited gait abilities HENT: Head: Normocephalic and atraumatic. Right Ear: External ear normal. Left Ear: External ear normal. Nose: Nose normal. No congestion. Mouth/Throat: Pharynx: Oropharynx is clear. Eyes: General: Right eye: No discharge. Left eye: No discharge. Cardiovascular: Rate and Rhythm: Normal rate. Pulmonary: Effort: Pulmonary effort is normal. No respiratory distress. Breath sounds: No wheezing. Abdominal: General: Bowel sounds are normal. There is no distension. Palpations: Abdomen is soft. Tenderness: There is no abdominal tenderness. Musculoskeletal: Right lower leg: Edema present. Left lower leg: Edema present. Comments: Chronic bilateral lymphedema Skin: General: Skin is dry. Comments: Very dry skin RLE with scabs that are superficial, they bleed when picked at or when she pulls her gauze off Neurological: General: No focal deficit present. Motor: Weakness (mild LLE weakness second to hip issues) present. No visits with results within 1 Month(s) from this visit. Latest known visit with results is: Office Visit on 12/24/2021 Component Date Value Ref Range Status Culture 12/24/2021 Few Staphylococcus aureus (A) Final Culture 12/24/2021 Few Escherichia coli (A) Final Culture 12/24/2021 Few Providencia rettgeri (more content not included)...[facility]02-15-2023 Miscellaneous Notes* Telephone Encounter - Bijan Elmore MD - 04/03/2022 11:04 AM EST The following approved medication requests have been transmitted electronically. Requested Prescriptions Signed Prescriptions Disp Refills gabapentin (NEURONTIN) 600 mg tablet 90 tablet 0 Sig: take 1 tablet by mouth three times a day Authorizing Provider: BIJAN EMLORE MD * Telephone Encounter - Costa Johnson LPN - 04/03/2022 10:20 AM EST [facility] Patient has been identified by name and date of : Yes Patient aware RX will be sent to pharmacy. No need to notify patient. Patient phones for refill(s): Requested Prescriptions Pending Prescriptions Disp Refills gabapentin (NEURONTIN) 600 mg tablet [Pharmacy Med Name: GABAPENTIN 600 MG TABLET] 90 tablet 0 Sig: take 1 tablet by mouth three times a day Date of last office visit : 09/17/2021 Date of next office visit : Visit date not found Last 2 Encounter Wt Readings: Date: Wt: 09/17/2021 83.9 kg (185 lb) 06/26/2021 0 kg () Not applicable Please advise. Costa Johnson LPN documented in this encounter[facility] [place] History of Present illness Narrative* Jarvis Almonte MD - 04/03/2022 10:00 AM EST [facility] Infectious Diseases Attending Outpatient Progress Note HISTORYOF PRESENT ILLNESS 52 year old female presents for a follow up visit after multiple issues with trying to get to the office. Last time I saw her we did an audio visit and at that time she was referred to me by Dr. Ware for wound infection of her RLE. She had a polymicrobial infection at that time and she was placed on 2-3 weeks of oral doxycycline/cipro. Cultures with + MRSA/E.coli and Providencia. She has historyof trauma and multiple injuries to right LE including right tibial plateau fracture, intramedullarynailing of right tibial shaft fracture and gastrocnemius flap surgery to cover the wounds. She has a history of exposed hardware and completed a course of IV antibiotics at [facility] followed by a tail o f oral cefdinir and doxycycline. Denies fevers, chills, nausea, or vomiting. No chest pain or SOB. Has ongoing dry skin of RLE with some scabs that she sometimes picks or they fall off when she changes her dressings and then the wound bleeds. She currently is not on any antibiotics and is followingwith Dr. Boothe from wound care. Her wounds are being managed with use of aquaphor and manage dry skin and lymphedema wraps. She is awaiting left hip total arthroplasty with Dr. Guzman. Overall feels well. Presents in wheelchair today. Review of Systems Constitutional: Positive for activity change. Negative for fatigue and fever. HENT: Negative for congestion and dental problem. Respiratory: Negative for cough and shortness of breath. Cardiovascular: Positive for leg swelling. Endocrine: Negative for cold intolerance and heat intolerance. Genitourinary: Negative for difficulty urinating and dyspareunia. Musculoskeletal: Positive for arthralgias and gait problem. Skin: Positive for rash. Psychiatric/Behavioral: Negative for agitation, behavioral problems and confusion. Social History Socioeconomic History Marital status: Single Spouse name: Not on file Number of children: Not on file Years of education: Not on file Highest education level: Not on file Occupational History Not on file Tobacco Use Smoking status: Every Day Packs/day: 0.50 Types: Cigarettes Smokeless tobacco: Never Substance and Sexual Activity Alcohol use: Never Drug use: Not Currently Types: IV, Opiates Sexual activity: Not on file Other Topics Concern Not on file Social History Narrative Merged History Encounter Social Determinants of Health Financial Resource Strain: Not on file Food Insecurity: Not on file Transportation Needs: Not on file Physical Activity: Not on file Stress: Not on file Social Connections: Not on file Intimate Partner Violence: Not on file Housing Stability: Not on file Past Medical History: Diagnosis Date Arthritis Cancer (CMS/HCC) (HCC) Cervical cancer (CMS/HCC) (HCC) Drug abuse (CMS/HCC) (HCC) Hepatitis C Hepatitis C without hepatic coma Necrotizing fasciitis of forearm (CMS/HCC) (HCC) Traumatic subarachnoid bleed with LOC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 have been transmitted electronically. Requested Prescriptions Signed Prescriptions Disp Refills levETIRAcetam (KEPPRA) 500 mg tablet 60 tablet 2 Sig: take 1 tablet by mouth twice a day Authorizing Provider: BIJAN ELMORE MD documented in this encounterKing'S [facility] [place]12-12-20[address]Dr Mirella I see you sent this back to me but am unsure if you want both medications refilled and for how long. Last prescription was a for 7 days. Please advise. Wound care referral placed.[facility]12-07-[address] Almonte: Please refill x 1 but please set patient up for wound care referral. Just clarifying for orders, do you want cipro and doxycycline both refilled? And for how long? Last prescription was for 7 days. Pt's follow up is scheduled on 02/21/22. I also see there is a order pended for general surgery in this encounter, did you want to refer pt there also?[facility]11-15-2022 NoteNoted in referral that the referral was sent for physician review prior to scheduling.[facility]10-26-2022 Miscellaneous Notes* Telephone Encounter - Carlo Miranda - 12/12/2021 5:38 PM EDT Called [facility] and was told to call back during normal business hours to speak with staff in the intake dept. Called pt and relayed this information and told her baclofen has been sent. Pt indicated understanding. * Telephone Encounter - Bijan Elmore MD - 12/12/2021 4:23 PM EDT Baclofen was sent. Bijan Elmore MD * Telephone Encounter - Vinnie Carpenter RN - 12/12/2021 3:00 PM EDT Reason for Disposition [1] Follow-up call from patient regarding patient's clinical status AND [2] information urgent Answer Assessment - Initial Assessment Questions 1. REASON FOR CALL or QUESTION: Patient calling to see if Baclofen refill has been processed? See also nurse triage encounter from 12/11/21 Also, patient is calling for update of shelter home orders for wound care and dressing changes. Patient is currently being treated for an infection of right leg. PCP authorized home care on 11/27/2021 but patient is still waiting to be contacted. Protocols used: PCP Call - No [id number] documented in this encounterKing'S [facility] [place]10-26-2022 Miscellaneous Notes* Telephone Encounter - Bijan Elmore MD - 12/12/2021 3:05 PM EDT The following approved medication requests have been transmitted electronically. Requested Prescriptions Signed Prescriptions Disp Refills baclofen (LIORESAL) 20 mg tablet 90 tablet 2 Sig: Take 1 tablet by mouth three times daily. Try baclofen 20 mg 3x per day. That is usually the max dose. Bijan Elmore MD * Telephone Encounter - Vinnie Carpenter RN - 12/12/2021 2:17 PM EDT Patient called back requesting recommendations, she is scheduled for a call back with Nurse Triage. * Telephone Encounter - Monisha Rose RN - 12/11/2021 3:04 PM EDT Patient calling regarding chronic hip pain. Has been taking baclofen but does not feel it is effective enough at current dose. Currently prescribed 15 mg TID- some days this is enough, but other days, especially at night, she needs to take an extra dose. She currently has 8 tabs of the 10 mg tabs and 2 tabs of the 5 mg tabs left. Baclofen brings pain from an 8/10 to 6/10 intensity. Not taking meloxicam- did not feel it helped as much as ibuprofen. Taking ibuprofen 600 mg TID as well as Tylenol. Please advise. Monisha Rose RN Reason for Disposition Hip pain is a chronic symptom (recurrent or ongoing AND present > 4 weeks) Protocols used: Hip [id number] documented in this encounterKing'S [facility] [place]10-13-2022 Miscellaneous Notes* Telephone Encounter - Costa Johnson LPN - 11/29/2021 1:37 PM EDT Left voicemail with home care nurse. * Telephone Encounter - Bijan Elmore MD - 11/28/2021 2:12 PM EDT OK home health eval / treat. custodial/' wound care Bijan Elmore MD * Telephone Encounter - Vonnie Patel Pss - 11/27/2021 2:51 PM EDT Calling in today requesting Skilled Home Health Care for patient for a non healing wound; lower leg. Orders to [facility] [phone] Vonnie Patel Pss documented in this encounterKing'S [facility] [place]10-12-2022 Miscellaneous Notes* Telephone Encounter - Carlo Miranda - 11/28/2021 4:16 PM EDT Received records request from [facility]. Faxed to medical records dept. documented in this encounterKing'S [facility] [place]09-20-2022 Miscellaneous Notes* Telephone Encounter - Carlo Miranda - 11/06/2021 10:17 AM EDT Fax received. Routed to PCP * Telephone Encounter - Costa Johnson LPN - 11/05/2021 11:56 AM EDT Fax not received. Left voicemail for [facility]. * Telephone Encounter - Dinah Babb Pss - 11/05/2021 11:38 AM EDT Patient was calling to see if we received a Fax from [facility] last week for pain meds. [facility] ([facility]) [phone] if questions or if fax not received. Deidra's phone is [phone] documented in this encounterKing'S [facility] [place]09-19-2022 Miscellaneous Notes* Telephone Encounter - Bijan Elmore MD - 11/05/2021 11:35 AM EDT The following approved medication requests have been transmitted electronically. Requested Prescriptions Signed Prescriptions Disp Refills promethazine (PHENERGAN) 25 mg tablet 8 tablet 0 Sig: Take 1 tablet by mouth every 6 hours as needed. Authorizing Provider: BIJAN ELMORE Mirtazapine (REMERON) 7.5 mg tablet 90 tablet 0 Sig: Take 1 tablet by mouth daily at bedtime. Authorizing Provider: BIJAN ELMORE MD * Telephone Encounter - Bijan Elmore MD - 11/05/2021 11:34 AM EDT The following approved medication requests have been transmitted electronically. Requested Prescriptions Pending Prescriptions Disp Refills promethazine (PHENERGAN) 25 mg tablet 8 tablet 0 Sig: Take 1 tablet by mouth every 6 hours as needed. Mirtazapine (REMERON) 7.5 mg tablet 90 tablet 0 Sig: Take 1 tablet by mouth daily at bedtime. Bijan Elmoer MD * Telephone Encounter - Prerna Green MA - 11/05/2021 10:23 AM EDT Last appointment: 09-17-21 Next appointment: na [facility] Refill(s) requested: Requested Prescriptions Pending Prescriptions Disp Refills promethazine (PHENERGAN) 25 mg tablet 8 tablet 0 Sig: Take 1 tablet by mouth every 6 hours as needed. Mirtazapine (REMERON) 7.5 mg tablet 90 tablet 0 Sig: Take 1 tablet by mouth daily at bedtime. Order(s) pended. Please advise. Prerna Green MA, [facility] documented in this encounterKing'S [facility] [place]09-19-2022 Miscellaneous Notes* Telephone Encounter - Bijan Elmore MD - 11/05/2021 11:33 AM EDT The following approved medication requests have been transmitted electronically. Requested Prescriptions Signed Prescriptions Disp Refills sertraline (ZOLOFT) 100 mg tablet 90 tablet 0 Sig: Take 1 tablet by mouth once daily. Authorizing Provider: BIJAN ELMORE buPROPion SR (ZYBAN SR; WELLBUTRIN SR) 150 mg 12 hr tablet 60 tablet 5 Sig: Take 1 tablet by mouth twice daily. Authorizing Provider: BIJAN ELMORE levETIRAcetam (KEPPRA) 500 mg tablet 60 tablet 2 Sig: Take 1 tablet by mouth twice daily. Authorizing Provider: BIJAN ELMORE meloxicam (MOBIC) 15 mg tablet 30 tablet 2 Sig: Take 1 tablet by mouth once daily. Authorizing Provider: BIJAN ELMORE MD * Telephone Encounter - Costa Johnson LPN - 11/05/2021 10:09 AM EDT [facility] Patient has been identified by name and date of : Yes Patient aware RX will be sent to pharmacy. No need to notify patient. Patient phones for refill(s): Requested Prescriptions Pending Prescriptions Disp Refills sertraline (ZOLOFT) 100 mg tablet 90 tablet 0 Sig: Take 1 tablet by mouth once daily. buPROPion SR (ZYBAN SR; WELLBUTRIN SR) 150 mg 12 hr tablet 60 tablet 5 Sig: Take 1 tablet by mouth twice daily. levETIRAcetam (KEPPRA) 500 mg tablet 60 tablet 2 Sig: Take 1 tablet by mouth twice daily. meloxicam (MOBIC) 15 mg tablet 30 tablet 2 Sig: Take 1 tablet by mouth once daily. Date of last office visit : 09/17/2021 Date of next office visit : Visit date not found Last 2 Encounter Wt Readings: Date: Wt: 09/17/2021 83.9 kg (185 lb) 06/26/2021 0 kg () Not applicable Please advise. Costa Johnson LPN documented in this [facility]08-24-2022 Miscellaneous Notes* Telephone Encounter - Carlo Miranda - 10/10/2021 2:34 PM EDT Received wound care orders from [employer]. Placed in provider's inbox for review. Route to [place] fax documented in this encounterKing'S [facility] [place]08-24-2022 Hospital Discharge instructions* Discharge Instructions* Fauzia Eli RN - 10/10/2021 1:50 PM EDT .hg * Attachments The following attachments cannot be sent through Care Everywhere. * Joint Aspiration (Angolan) [facility] this [facility] Work Phone: [phone] Miscellaneous Notes* Telephone Encounter - Kristin Crews - 10/09/2021 4:37 PM EDT Patient is calling for pain medication, she has a visit tomorrow in [place] [facility] for to draw fluid from her hip. She is asking for something that will help as the muscle relaxer's are only making her tired. [facility]. Please call [phone] to discuss. documented in this [facility]08-17-2022 Miscellaneous Notes* Telephone Encounter - Carlo iMranda - 10/03/2021 3:19 PM EDT Received orders from [facility]. Placed in provider's inbox for review. Route to [place] fax documented in this encounterKing'S [facility] [place]08-02-2022 Miscellaneous Notes* Telephone Encounter - Bijan Elmore MD - 09/18/2021 1:00 PM EDT Switch Rx: The following approved medication requests have been transmitted electronically. Signed Prescriptions Disp Refills baclofen (LIORESAL) 10 mg tablet 90 tablet 2 Sig: Take 1 tablet by mouth three times daily as needed (muscle spasms). Along with 5 mg tablet. Authorizing Provider: BIJAN ELMORE baclofen (LIORESAL) 5 mg tablet 90 tablet 2 Sig: Take 1 tablet by mouth three times daily. Along with 10 mg tablet. Authorizing Provider: BIJAN ELMORE MD * Telephone Encounter - Carlo Miranda - 09/18/2021 8:06 AM EDT Received prior authorization request from [employer]. plan limit exceeded. Reducequantity to allowed quantity and days supply Placed in PCP inbox for review. * Telephone Encounter - Cheryl Ramirez - 09/17/2021 6:15 PM EDT PT thought a 5mg and 15mg prescription were being sent over but the pharmacy said the provider didn't authorize it. Please advise. Pt thought she was supposed to be taking this documented in this encounterKing'S [facility] [place]08-02-2022 Miscellaneous Notes* Telephone Encounter - Bijan Elmore MD - 09/18/2021 10:48 AM EDT The following approved medication requests have been transmitted electronically. Signed Prescriptions Disp Refills Mirtazapine (REMERON) 7.5 mg tablet 90 tablet 0 Sig: take 1 tablet by mouth at bedtime BETTIE: No Authorizing Provider: BIJAN ELMORE MD * Telephone Encounter - Costa Johnson LPN - 09/17/2021 11:32 AM EDT [facility] Patient has been identified by name and date of : Yes Patient aware RX will be sent to pharmacy. No need to notify patient. Patient phones for refill(s): Pending Prescriptions Disp Refills MIRTAZAPINE 7.5 MG TABLET 90 tablet 0 Sig: take 1 tablet by mouth at bedtime BETTIE: Yes Date of last office visit : 06/26/2021 Date of next office visit : 09/17/2021 Last 2 Encounter Wt Readings: Date: Wt: 06/26/2021 0 kg () 06/07/2020 85.4 kg (188 lb 4.8 oz) Not applicable Please advise. Costa Johnson LPN documented in this encounterKing'S [facility] [place]08-01-2022 History of Present illness Narrative* Bijan Elmore MD - 09/17/2021 4:20 PM EDT CHIEF COMPLAINT Patient presents with: left leg pain HISTORY OF PRESENT ILLNESS Deidra De La Cruz is a 51 year old female who presents here today for evaluation of leg edema. I last saw this patient on 06/20/21. Leg Pain She has been unable to go to therapy because her leg has been in too much pain. Patient says that she is having pain in the joint. She has been following an orthopedic. Patient has been hearing crackling noises Health Maintenance Due for COVID-19 vaccine Due for meningococcal B Due for Shingrix series Due for HPV testing. Due for routine colon cancer screening. Due for routine pap testing. Due for depression screening. Due for Hepatitis B Due for Hep A Due for TDAP. Due for meningococcal B Due for mammogram. Labs reviewed. Past medical history, appointments, medications, allergies reviewed. REVIEW OF SYSTEMS Pertinent positives/ negatives: General: Feels well, no fever, no chills, +obesity HEENT: No sinus congestion, earache, sore throat. Cardiac: No chest pain, palpitations Resp: No cough, wheeze, shortness of breath GI: No reflux symptoms, food intolerance, bowel changes. : No urinary frequency, dysuria. MS: +leg pain Psych: +anxiety Neuro: +seizures PAST MEDICAL HISTORY PAST MEDICAL HISTORY Diagnosis Date Narcotic addiction ([facility]) remote heroin, methadone since ~1999 Subarachnoid hemorrhage ([facility]) PHYSICAL EXAMINATION BP 114/65 Pulse 82 Ht 165.1 cm (5' 5) Wt 83.9 kg (185 lb) LMP 02/17/2020 SpO2 95% BMI 30.79 kg/m General: Alert, well developed, well nourished, no distress, pleasant and cooperative. Obese Heart: Regular rate and rhythm. Normal S1 and S2. No murmurs, rubs, or gallops. Lungs: Clear to auscultation bilaterally. No respiratory distress. No wheezes, rales, or rhonchi. Abdomen: Soft, non-tender, no distention. Extremities: she has surgical scars on her legs/ arms. The L hip particularly has a rachet-like series of snaps when she attemps standing. Feet/ankles without edema, posterior tibial pulses full and symmetrical. X rays [facility] R tib fib s/p ORIF. US neg for DVT No recent images of L hip. Assessment/Plan (R56.9) Seizures (HCC) (primary encounter diagnosis) Comment: in need of refill Plan: levETIRAcetam (KEPPRA) 500 mg tablet (F41.9) Chronic anxiety Comment: in need of refill Plan: gabapentin (NEURONTIN) 600 mg tablet (M25.552) Left hip pain ((M79.604) Right leg pain Comment: post trauma snapping in hip and has continual pain in left leg Plan: CONSULT TO ORTHOPAEDICS Signed Prescriptions Disp Refills levETIRAcetam (KEPPRA) 500 mg tablet 60 tablet 2 Sig: Take 1 tablet by mouth twice daily. BETTIE: No gabapentin (NEURONTIN) 600 mg tablet 90 tablet 2 Sig: Take 1 tablet by mouth three times daily for 90 days. BETTIE: No baclofen (LIORESAL) 5 mg tablet 270 tablet 2 Sig: Take 3 tablets by mouth three times daily. RTO: PRN Scribe Attestation: By signing my name below, ICece, attest that this documentation has been prepared under the direction and in the presence of Francisco Elmore M.D. Electronically Signed: Shanika Foreman. September 17, 2021 1:40 PM Provider Attestation: I, Bijan Elmore MD, personally performed the services described in this documentation. All medical record entries made by the scribe were at my direction and in my presence. I have reviewed the chart and discharge instructions (if applicable) and agree that the record reflects my personal performance and is accurate and complete. Electronically Signed: Bijan Elmore MD. September 18, 2021 8:30 AM documented in this encounterKing'S [facility] [place]07-31-2022 Miscellaneous Notes* Telephone Encounter - Elsa Dyer RN - 09/16/2021 2:03 PM EDT Patient calling with request for medication/refill: Patient/caregiver requesting refill of Gabapentin be called to [facility] pharmacy at [phone]. Patient denies any new or worsening symptoms of which a provider is not aware: Yes. Pt has 2 pills left. Advised her to call pharmacy for emergency short fill for a couple days and call office tomorrow when open tomorrow to discuss refill request. Pt has chronic leg pain. Seen an non [facility] urgent care 3 weeks ago for leg infections. Denies leg swelling and redness. Taking antibiotics. Suggested urgent care follow up appt tomorrow. Conferenced her to appt center to move up her 09/19 appt. NOC closing was given. Advised use of ED for severe pain GO TO THE EMERGENCY ROOM OR CALL 911 IF: * You develop any new symptoms * Your condition worsens * You are concerned or anxious about your condition for any other reason. If you have any questions, you can call Nurse sanitation officer back. documented in this encounterKing'S [facility] [place]07-29-2022 Miscellaneous Notes* Telephone Encounter - Yas Kent - 09/14/2021 3:52 PM EDT Deidra is all scheduled to see Dr. Elmore on 09/19/21. Thank you, Yas Kent * Telephone Encounter - Costa Johnson LPN - 09/14/2021 3:24 PM EDT Patient aware she needs to schedule appointment * Telephone Encounter - Bijan Elmore MD - 09/14/2021 2:26 PM EDT Schedule appointment in office. Bijan Elmore MD * Telephone Encounter - Samra Pryor - 09/14/2021 1:01 PM EDT Patient Deidra called her leg pain has increased, would like something stronger than baclofen. Please advise, . documented in this encounterKing'S [facility] [place]07-23-2022 Miscellaneous Notes* Telephone Encounter - Monisha Estevez RN - 09/08/2021 2:35 PM EDT Patient calling with request for medication/refill: Patient/caregiver requesting refill of baclofen(LIORESAL) 20 mg tablet be called to [facility] pharmacy at [phone]. and Do you have enough medication to last until the office reopens? No. . Patient denies any new or worsening symptoms of which a provider is not aware: Yes. Outcome: Called [facility] pharmacy and was informed patient should have enough of the baclofen for 16 more days.Patient reports she was at [facility] yesterday and was given hydrocodone but needs a muscle relaxer. Dr Alfaro was informed and advises patient to follow up with PCP on Friday for approvalof the baclofen. Patient was informed. GO TO THE EMERGENCY ROOM OR CALL 911 IF: * You develop any new symptoms * Your condition worsens * You are concerned or anxious about your condition for any other reason. If you have any questions, you can call Nurse sanitation officer back. documented in this encounterKing'S [facility] [place]07-21-2022 Miscellaneous Notes* Telephone Encounter - Carlo Miranda - 09/06/2021 7:53 AM EDT Received ED summary and imaging for rt leg pain and swelling from [facility]. Placed in provider's inbox for review. Route to [place] scanning. documented in this encounterKing'S [facility]aughters [facility] [place]07-19-2022 Miscellaneous Notes* Telephone Encounter - Carlo Miranda - 09/04/2021 7:55 AM EDT Received orders from [facility]. Placed in provider's inbox for review. Route to [place] fax documented in this encounterKing'S [facility]aughters [facility] [place]07-05-2022 Miscellaneous Notes* Telephone Encounter - Bijan Elmore MD - 08/21/2021 11:37 AM EDT The following approved medication requests have been transmitted electronically. Signed Prescriptions Disp Refills levothyroxine (SYNTHROID) 50 mcg tablet 30 tablet 1 Sig: take 1 tablet by mouth once daily ON AN EMPTY STOMACH BETTIE: No Authorizing Provider: BIJAN ELMORE Refused Prescriptions Disp Refills famotidine (PEPCID) 20 mg tablet [Pharmacy Med Name: FAMOTIDINE 20 MG TABLET] 60 tablet 0 Sig: take 1 tablet by mouth twice a day BETTIE: No Refused By: SANDI BLANCO Reason for Refusal: Patient has requested refill too soon cloNIDine HCl (CATAPRES) 0.1 mg tablet [Pharmacy Med Name: CLONIDINE HCL 0.1 MG TABLET] 90 tablet 0 Sig: take 1 tablet by mouth three times a day BETTIE: No Refused By: SANDI BLANCO Reason for Refusal: Patient has requested refill too soon Bjian Elmore MD * Telephone Encounter - Sandi Blanco MA - 08/21/2021 11:32 AM EDT [facility] Patient has been identified by name and date of : Yes Patient aware RX will be sent to pharmacy. No need to notify patient. Patient phones for refill(s): Pending Prescriptions Disp Refills LEVOTHYROXINE 50 MCG TABLET 30 tablet 1 Sig: take 1 tablet by mouth once daily ON AN EMPTY STOMACH BETTIE: Yes Refused Prescriptions Disp Refills famotidine (PEPCID) 20 mg tablet [Pharmacy Med Name: FAMOTIDINE 20 MG TABLET] 60 tablet 0 Sig: take 1 tablet by mouth twice a day BETTIE: No cloNIDine HCl (CATAPRES) 0.1 mg tablet [Pharmacy Med Name: CLONIDINE HCL 0.1 MG TABLET] 90 tablet 0 Sig: take 1 tablet by mouth three times a day BETTIE: No Date of last office visit : 06/26/2021 Date of next office visit : 09/26/2021 Last 2 Encounter Wt Readings: Date: Wt: 06/26/2021 0 kg () 06/07/2020 85.4 kg (188 lb 4.8 oz) Thyroid: TSH (mIU/L) Date Value 06/26/2021 4.260 Please advise. Sandi Blanco MA documented in this encounterKing'S [facility] [place]06-21-2022 Miscellaneous Notes* Telephone Encounter - Bijan Elmore MD - 08/07/2021 8:15 AM EDT The following approved medication requests have been transmitted electronically. Signed Prescriptions Disp Refills buPROPion SR (ZYBAN SR; WELLBUTRIN SR) 150 mg 12 hr tablet 60 tablet 5 Sig: Take 1 tablet by mouth twice daily. BETTIE: No Authorizing Provider: BIJAN ELMORE MD * Telephone Encounter - Sandi Blanco MA - 08/07/2021 7:47 AM EDT Pharmacy verified in [facility]. Patient has been identified by name and date of : Yes Patient aware RX will be sent to pharmacy. No need to notify patient. Patient phones for refill(s): Pending Prescriptions Disp Refills BUPROPION HCL SR 150 MG TABLET,12 HR SUSTAINED-RELEASE 60 tablet 0 Sig: take 1 tablet by mouth twice a day BETTIE: Yes Date of last office visit : 06/26/2021 Date of next office visit : 09/26/2021 Last 2 Encounter Wt Readings: Date: Wt: 06/26/2021 0 kg () 06/07/2020 85.4 kg (188 lb 4.8 oz) Not applicable Please advise. Sandi Blanco MA documented in this encounterKing'S [facility] [place]06-14-2022 Miscellaneous Notes* Telephone Encounter - Carlo Miranda - 07/31/2021 8:31 AM EDT Fax sent * Telephone Encounter - Carlo Miranda - 07/31/2021 7:53 AM EDT Received request for order sign off from PCP from [facility]. Placed in provider's inbox for review. Route to [place] fax documented in this encounterKing'S [facility]aughters [facility] [place]06-09-2022 Miscellaneous Notes* Telephone Encounter - Carlo Confer - 07/26/2021 7:53 AM EDT Received Discharge- Transfer Summary report from [facility]. Placed in provider's inbox for review. Route to [place] scanning. documented in this encounterKing'S [facility] [place]06-07-2022 Miscellaneous Notes* Telephone Encounter - Carlo Miranda - 07/24/2021 3:39 PM EDT Mychart message sent to pt advising prescriptions and need for appt. * Telephone Encounter - Bijan Elmore MD - 07/24/2021 3:03 PM EDT The following approved medication requests have been transmitted electronically. Signed Prescriptions Disp Refills meloxicam (MOBIC) 15 mg tablet 30 tablet 2 Sig: Take 1 tablet by mouth once daily. Take with food. Authorizing Provider: BIJAN ELMORE doxycycline hyclate (VIBRAMYCIN) 100 mg capsule 14 capsule 0 Sig: Take 1 capsule by mouth twice daily for 7 days. BETTIE: No Authorizing Provider: BIJAN ELMORE OK 1 fill. Appt in office before any additional antibiotic. Trial of meloxicam. For pain. / arthritis. Bijan Elmore MD * Telephone Encounter - Evelyn Mota - 07/23/2021 3:59 PM EDT Deidra De La Cruz is calling Bijan Elmore MD today requesting a renewal of antibiotics for her leg pain. She is also asking if the doctor can prescribe something for her pain? Please advise documented in this encounterKing'S [facility]aughters [facility] [place]06-06-2022 Miscellaneous Notes* Telephone Encounter - Carlo Miranda - 07/23/2021 5:06 PM EDT Orders were faxed to [facility]. Called pt and VM was full LilLuxehart message sent. * Telephone Encounter - Evelyn Mota - 07/23/2021 3:58 PM EDT Patient is calling on status of orders for OT/PT Please advise and return her call * Telephone Encounter - Costa Johnson LPN - 07/20/2021 2:01 PM EDT Received 07/20/2021 from [facility]. Placed in provider's inbox for review. Route to [facility] for scanning Rehabilitation services initial evaluation documented in this encounterKing'S [facility]aughters [facility] [place]06-02-2022 Miscellaneous Notes* Telephone Encounter - Carlo Miranda - 07/19/2021 5:34 PM EDT For PCP review and sign off. Route to fax documented in this encounterKing'S [facility]aughters [facility] [place]06-02-2022 Miscellaneous Notes* Telephone Encounter - Prerna Green MA - 07/19/2021 9:58 AM EDT Last appointment: 07-12-21 Next appointment: 09-26-21 [facility] Refill(s) requested: Pending Prescriptions Disp Refills FAMOTIDINE 20 MG TABLET 60 tablet 0 Sig: take 1 tablet by mouth twice a day BETTIE: Yes CLONIDINE HCL 0.1 MG TABLET 90 tablet 0 Sig: take 1 tablet by mouth three times a day BETTIE: Yes Order(s) pended. Please advise. Prerna Green MA, REINFORCING STE[employer] WORKER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 subarachnoid bleed with LOC of 6 hours to 24 hours, initial encounter ([facility]) Open fracture of right tibia Open fracture of unspecified part of tibia Closed fracture of multiple ribs of both sides Contusion of both lungs Lung contusion without mention of open wound into thorax LeFort III fracture, initial encounter for open fracture ([facility]) Closed displaced fracture of left acetabulum ([facility]) Respiratory failure following trauma and surgery ([facility]) Acute respiratory failure following trauma and surgery DVT (deep vein thrombosis) in Deep phlebothrombosis, antepartum, unspecified as to episode of care documented in this encounter [facility] Work Phone: Evaluation note* Diagnosis Debility- Primary Debility, unspecified Open wound knee/leg with tendon involvment, right, sequela Anxiety Anxiety state, unspecified Depressive disorder Depressive disorder, not elsewhere classified Anxiety disorder Anxiety state, unspecified documented in this encounter [facility] Work Phone: Evaluation note* Diagnosis Chronic pain of both knees- Primary Traumatic subarachnoid hemorrhage with loss of consciousness of 6 hours to 24 hours, sequela (HCC) Generalized weakness Other malaise and fatigue Necrotizing fasciitis (HCC) Necrotizing fasciitis [facility]* Diagnosis Leg wound, right, initial encounter- Primary documented in this encounter [facility] note* Diagnosis Chronic anxiety- Primary Anxiety state, unspecified Fractures, multiple Closed fracture of unspecified bone Open fracture of condyle of right tibia Fx malar & max bones ace LeFort 3 open (HCC) Traumatic closed nondisplaced fracture of left acetabulum, sequela Laceration of spleen, sequela documented in this encounter [facility] note* Diagnosis Hypertension, essential- Primary Unspecified essential hypertension Gastroesophageal reflux disease, unspecified whether esophagitis present Chronic pain syndrome Hypothyroidism, acquired Unspecified hypothyroidism Debility Debility, unspecified Seizures (HCC) Other convulsions Chronic anxiety Anxiety state, unspecified documented in this encounter [facility] note* Diagnosis Hypothyroidism, acquired- Primary Unspecified hypothyroidism documented in this encounter [facility] note* Diagnosis Traumatic injury- Primary Injury, other and unspecified, unspecified site Chronic pain syndrome Multiple fractures Closed fracture of unspecified bone documented in this encounter [facility] note* Diagnosis Multiple fractures- Primary Closed fracture of unspecified bone Traumatic injury Injury, other and unspecified, unspecified site [facility]* Diagnosis NO SHOW- Primary documented in this encounter [facility] note* Diagnosis Gastroesophageal reflux disease, unspecified whether esophagitis present Hypertension, essential Unspecified essential hypertension Chronic anxiety Anxiety state, unspecified documented in this encounter [facility] note* Diagnosis Chronic anxiety Anxiety state, unspecified documented in this encounter [facility] note* Diagnosis Encounter for screening mammogram for breast cancer documented in this encounter [facility] note* Diagnosis Gastroesophageal reflux disease, unspecified whether esophagitis present Hypertension, essential Unspecified essential hypertension Chronic anxiety Anxiety state, unspecified documented in this encounter [facility] noteNo assessment information availableW[facility] Work Phone: [facility] note* Diagnosis Left hip pain- Primary Pain in joint, pelvic region and thigh Seizures (HCC) Other convulsions Chronic anxiety Anxiety state, unspecified Right leg pain Pain in limb documented in this encounter [facility] note* Diagnosis Chronic anxiety Anxiety state, unspecified documented in this encounter [facility] note* Diagnosis Chronic anxiety Anxiety state, unspecified Seizures (HCC) Other convulsions documented in this encounter [facility] note* Diagnosis Chronic anxiety Anxiety state, unspecified documented in this encounter [facility] note* Diagnosis Seizures (HCC) Other convulsions documented in this encounter [facility] note* Diagnosis Chronic anxiety Anxiety state, unspecified documented in this encounter [facility] note* Diagnosis Chronic anxiety Anxiety state, unspecified documented in this encounter [facility] note* Diagnosis Chronic anxiety Anxiety state, unspecified documented in this encounter [facility] note* Diagnosis Chronic anxiety Anxiety state, unspecified documented in this encounter [facility] note* Diagnosis Seizures (HCC) Other convulsions documented in this encounter [facility] note* Diagnosis Chronic anxiety Anxiety state, unspecified documented in this encounter [facility] note* Diagnosis Open wound of right knee, sequela- Primary Urinary incontinence, unspecified type documented in this encounter [facility] note* Diagnosis Seizures (HCC) Other convulsions documented in this encounter [facility] note* Diagnosis Encounter for screening mammogram for breast cancer documented in this encounter [facility] note* Diagnosis Chronic anxiety Anxiety state, unspecified documented in this encounter [facility] note* Diagnosis Urinary incontinence, unspecified type- Primary Seizures (HCC) Other convulsions Chronic anxiety Anxiety state, unspecified Hypertension, essential Unspecified essential hypertension Hypothyroidism, acquired Unspecified hypothyroidism Chronic pain syndrome Chronic left hip pain Pain in joint, pelvic region and thigh Gastroesophageal reflux disease, unspecified whether esophagitis present Nausea Nausea alone Screening for lipid disorders Chronic ulcer of right leg, 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) Nocturnal enuresis Stress incontinence Female stress incontinence Functional urinary incontinence documented in this encounter [facility] note* Diagnosis Needs assistance with community resources- Primary documented in this encounter [facility] note* Diagnosis Chronic anxiety Anxiety state, unspecified documented in this encounter [facility] note* Diagnosis Chronic ulcer of right leg, 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)- Primary Requires daily assistance for activities of daily living (ADL) and comfort needs [facility]* Diagnosis Hypertension, essential- Primary Unspecified essential hypertension Hypothyroidism, acquired Unspecified hypothyroidism Chronic anxiety Anxiety state, unspecified Screening for lipid disorders [facility]* Diagnosis Onset Date Resolution Status History of tibial fracture a cute Unspecified open wound, righ t lower leg, initial encounter acute Chronic ulcer of right leg with fat layer exposed chronic [facility] [facility] Work Phone: Evaluation note* Diagnosis Seizures (HCC) Other convulsions [facility]* Diagnosis Chronic anxiety Anxiety state, unspecified [facility]* Diagnosis Chronic anxiety Anxiety state, unspecified [facility]* Diagnosis Seizures (HCC)- Primary Other convulsions [facility] Diagnosis Hypertension, essential- Primary Unspecified essential hypertension Chronic anxiety Anxiety state, unspecified documented in this encounter [facility] note* Diagnosis Skin excoriation Other and unspecified superficial injury of other, multiple, and unspecified sites, without mention of infection Dry skin dermatitis Contact dermatitis and other eczema due to other specified agent [facility]* Diagnosis Hip pain, chronic, left- Primary Avascular necrosis of bone of left hip (Multi) Traumatic arthritis of left hip Traumatic arthritis of right knee Closed posterior wall acetabular fx, left, sequela documented in this encounter [facility] Work Phone: Evaluation note* Diagnosis Hip pain, chronic, left documented in this encounter [facility] Work Phone: Evaluation note* Diagnosis Hip pain, chronic, left documented in this encounter [facility] Work Phone: Evaluation note* Diagnosis Encounter for screening mammogram for breast cancer [facility]* Diagnosis Avascular necrosis of bone of left hip (Multi) documented in this encounter [facility] Work Phone: Evaluation note* Diagnosis Chronic anxiety Anxiety state, unspecified Hypertension, essential Unspecified essential hypertension [facility]* Diagnosis Chronic pain syndrome- Primary Multiple fractures Closed fracture of unspecified bone [facility]* Diagnosis Chronic anxiety Anxiety state, unspecified [facility]* Diagnosis Chronic anxiety Anxiety state, unspecified [facility]* Diagnosis Skin excoriation Other and unspecified superficial injury of other, multiple, and unspecified sites, without mention of infection Dry skin dermatitis Contact dermatitis and other eczema due to other specified agent Chronic anxiety Anxiety state, unspecified [facility]* Diagnosis Chronic hip pain, unspecified laterality- Primary Status post left hip replacement Hip joint replacement by other means Chronic pain of right knee Mobility impaired Other ill-defined conditions [facility]* Diagnosis Traumatic arthritis of left hip- Primary Status post left hip replacement Hip joint replacement by other means Chronic hepatitis C without hepatic coma (HCC) Chronic hepatitis C without mention of hepatic coma Acquired hypothyroidism Unspecified hypothyroidism Continuous dependence on cigarette smoking Carpal tunnel syndrome, right Carpal tunnel syndrome Essential hypertension Unspecified essential hypertension Chronic anxiety Anxiety state, unspecified Newly recognized heart murmur Undiagnosed cardiac murmurs [facility]* Diagnosis Traumatic arthritis of left hip- Primary 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 Tibial plateau fracture, right, sequela Traumatic arthritis of left hip documented in this encounter [facility] Work Phone: Evaluation note* Diagnosis Chronic anxiety Anxiety state, unspecified [facility]* Diagnosis Traumatic arthritis of left hip- Primary Mobility impaired Other ill-defined conditions Failed total hip arthroplasty, sequela Status post left hip replacement Hip joint replacement by other means [facility]* Diagnosis Traumatic arthritis of left hip- Primary Traumatic arthritis of right knee Traumatic arthritis of left hip documented in this encounter [facility] Work Phone: Evaluation note* Diagnosis Traumatic arthritis of left hip- Primary Tibial plateau fracture, right, sequela Traumatic arthritis of left hip documented in this encounter [facility] Work Phone: Evaluation note* Diagnosis Essential hypertension Unspecified essential hypertension Newly recognized heart murmur Undiagnosed cardiac murmurs [facility]* Diagnosis Chronic anxiety Anxiety state, unspecified Hypertension, essential Unspecified essential hypertension documented in this encounter [facility] note* Diagnosis Acquired hypothyroidism- Primary Unspecified hypothyroidism [facility]* Diagnosis Traumatic arthritis of left hip- Primary Traumatic arthritis of left hip Tibia and fibula open fracture, right, sequela Postoperative pain Other acute postoperative pain HTN (hypertension) Unspecified essential hypertension Seizures (Multi) Other convulsions Hypothyroidism Unspecified hypothyroidism Tibia and fibula open fracture, right, sequela documented in this encounter [facility] Work Phone: Evaluation note* Diagnosis Seizures (HCC) Other convulsions [facility]* Diagnosis Traumatic arthritis of right knee Pain of right tibia documented in this encounter [facility] Work Phone: Evaluation note* Diagnosis Traumatic arthritis of right knee documented in this encounter [facility] Work Phone: Evaluation note* Diagnosis Chronic anxiety Anxiety state, unspecified [facility]* Diagnosis 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) Venous insufficiency Unspecified venous (peripheral) insufficiency Lymphedema Other noninfectious lymphedema [facility] Diagnosis Traumatic open wound of right lower leg with infection, initial encounter- Primary MRSA infection [facility] Diagnosis Left hip pain- Primary Pain in joint, pelvic region and thigh [facility] Diagnosis Left hip pain Pain in joint, pelvic region and thigh [facility] Diagnosis Left hip pain- Primary Pain in joint, pelvic region and thigh Acute pain of right knee Open wound of right knee, subsequent encounter [facility] Diagnosis Left hip pain- Primary Pain in joint, pelvic region and thigh Acute pain of right knee Open wound of right knee, subsequent encounter [facility] Diagnosis 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 Tibial plateau fracture, right, sequela Wound dehiscence, surgical, initial encounter documented in this encounter [facility] Work Phone: Evaluation note* Diagnosis Gastroesophageal reflux disease, unspecified whether esophagitis present Chronic anxiety Anxiety state, unspecified documented in this encounter [facility] note* Diagnosis Chronic multifocal osteomyelitis of right tibia (Multi)- Primary Chronic multifocal osteomyelitis of right tibia (Multi) Tibial plateau fracture, right, sequela Traumatic arthritis of right knee Malignant hyperthermia Chronic obstructive pulmonary disease (Multi) documented in this encounter [facility] Work Phone: Evaluation note* Diagnosis Encounter for management of wound VAC- Primary Status post PICC central line placement Other postprocedural status [facility]* Diagnosis 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, unspecified fracture morphology, subsequent encounter Tibia and fibula open fracture, right, sequela Chronic multifocal osteomyelitis of right tibia (Multi) PONV (postoperative nausea and vomiting) Nausea with vomiting Constipation, unspecified constipation type 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, unspecified fracture morphology, subsequent encounter PONV (postoperative nausea and vomiting) Nausea with vomiting documented in this encounter [facility] Work Phone: Evaluation note* Diagnosis 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, unspecified fracture morphology, subsequent encounter- Primary Chronic anxiety Anxiety state, unspecified [facility]* Diagnosis Essential hypertension Unspecified essential hypertension Medication management Encounter for long-term (current) use of other medications documented in this encounter [facility] note* Diagnosis 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, unspecified fracture morphology, subsequent encounter Tibia and fibula open fracture, right, sequela Chronic multifocal osteomyelitis of right tibia (Multi) PONV (postoperative nausea and vomiting) Nausea with vomiting Constipation, unspecified constipation type 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, unspecified fracture morphology, subsequent encounter PONV (postoperative nausea and vomiting) Nausea with vomiting Wound dehiscence- Primary Disruption of external operation (surgical) wound Cellulitis of left lower extremity Wound dehiscence Disruption of external operation (surgical) wound Wound dehiscence, surgical, initial encounter Tibial plateau fracture, right, sequela 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, right (Multi) Wound dehiscence, surgical, initial encounter Tibial plateau fracture, right, sequela 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) Post-operative pain Other acute postoperative pain Cellulitis of left lower extremity Status post above knee amputation, right (Multi) documented in this encounter [facility] Work Phone: Evaluation note* Diagnosis Encounter for screening mammogram for breast cancer [facility]* Diagnosis Chronic anxiety Anxiety state, unspecified Hypertension, essential Unspecified essential hypertension documented in this encounter [facility] for referral (narrative)* Diagnostic Procedure Only (Routine) - Pending Review Specialty Diagnoses / Procedures Referred By Yumiko lynn Referred To Contact [facility] Diagnoses Encounter for screening mammogram for breast cancer Procedures IVÁN SCREENING SCREENING MAMMOGRAPHY BI 2-VIEW BREAST INC Bijan Monahan MD [address] [place] [place] [address] [facility] [place] [address] Referral ID Status Reason Start Date Expiration Date Visits Requested Visits Authorized [id number] Pending Review Auto-Generat ed Referral 08/15/2021 09/14/2022 1 1 [facility] for referral (narrative)* Diagnostic Procedure Only (Routine) - Pending Review Specialty Diagnoses / Procedures Referred By Yumiko lynn Referred To Contact [facility] Diagnoses Encounter for screening mammogram for breast cancer Procedures IVÁN SCREENING SCREENING MAMMOGRAPHY BI 2-VIEW BREAST INC Bijan Monahan MD [address] [place] [place] [address] [facility] [place] [address] Referral ID Status Reason Start Date Expiration Date Visits Requested Visits Authorized [id number] Pending Review Auto-Generat ed Referral 07/17/2022 08/16/2023 1 1 T [facility] for referral (narrative)* Diagnostic Procedure Only (Routine) - Pending Review Specialty Diagnoses / Procedures Referred By Yumiko t Referred To Contact [facility] Diagnoses Encounter for screening mammogram for breast cancer Procedures IVÁN SCREENING SCREENING MAMMOGRAPHY BI 2-VIEW BREAST INC CAD Bijan Elmore MD [address] [place] [place] [address] [facility] [address] [place] [address] Referral ID Status Reason Start Date Expiration Date Visits Requested Visits Authorized [id number] Pending Review Auto-Generat ed Referral 06/25/2023 07/24/2024 1 1 [facility] for referral (narrative)* Outpatient Procedure (Routine) - Authorized Specialty Diagnoses / Procedures Referred By Yumiko lynn Referred To Contact [facility] Diagnoses Essential hypertension Newly recognized heart murmur Procedures ECHO ECHO TTHRC R-T 2D W/WOM-MODE COMPL SPEC&COLR D Bijan Elmore MD [address] [place] [place] [address] [facility] [address] [place] [id number] Referral ID Status Reason Start Date Expiration Date Visits Requested Visits Authorized [id number] Authorized Auto-Generat ed Referral 11/18/2023 11/17/2024 1 1 * Outpatient Procedure (Routine) - New Request Specialty Diagnoses / Procedures Referred By Yumiko lynn Referred To Contact [facility] Diagnoses Essential hypertension Newly recognized heart murmur Procedures ECG COMPLETE ECG ROUTINE ECG W/LEAST 12 LDS W/I&R Bijan Elmore MD [address] [place] [address] [address] Referral ID Status Reason Start Date Expiration Date Visits Requested Visits Authorized [id number] New Request Auto-Generat ed Referral 11/18/2023 11/17/2024 1 1 [facility] for referral (narrative)* Outpatient Procedure (Routine) - Closed Specialty Diagnoses / Procedures Referred By Contac t Referred To [facility] Diagnoses Essential hypertension Newly recognized heart murmur Procedures ECHO ECHO TTHRC R-T 2D W/WOM-MODE COMPL SPEC&COLR D Bijan Elmore MD [address] [place] [address] [facility] [address] [email or web address] [address] Referral ID Status Reason Start Date Expiration Date V isits Requested Visits Authorized [id number] Closed Auto-Generate d Referral 11/18/2023 11/17/2024 1 1 [facility] for referral (narrative)No reason for referral information availableWUniversity [facility] Work [facility]: Reason for visit Narrative* Imaging (Emergency) - Authorized Specialty Diagnoses / Procedures Referred By Contac t Referred To Contact Radiology Diagnoses Traumatic arthritis of right knee Procedures CT [place] [address] [address] [facility] Department [place] [address] Phone: tel: fax: Referral ID Status Reason Start Date Expiration Date Visits Requested Visits Authorized [id number] Authorized Perform Procedure 08/25/2023 08/24/2024 1 1 [facility] Work Phone: Reason for visit Narrative* Imaging (Routine) - Authorized Specialty Diagnoses / Procedures Referred By Contac t Referred To Contact Radiology Diagnoses Tibial plateau fracture, right, sequela Procedures CT tibia fibula [place] [address] [address] Department [place] [address] Phone: tel: fax: Referral ID Status Reason Start Date Expiration Date Visits Requested Visits Authorized [id number] Authorized Perform Procedure 11/30/2024 1 1 [facility] Work Phone: Reason for visit Narrative* Outpatient Procedure (Routine) - Closed Specialty Diagnoses / Procedures Referred By Contac t Referred To [facility] Diagnoses Essential hypertension Newly recognized heart murmur Procedures ECHO ECHO TTHRC R-T 2D W/WOM-MODE COMPL SPEC&COLR D Bijan Elmore MD [address] [place] [address] [facility] [address] [place] [address] Referral ID Status Reason Start Date Expiration Date V isits Requested Visits Authorized [id number] Closed Auto-Generate d Referral 11/18/2023 11/17/2024 1 1 [facility] Auth/Cert Specialty Diagnoses / Procedures Referred By Yumiko lynn Referred To Contact Diagnoses Traumatic arthritis of left hip 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] Procedures MD CONV PREV HIP TOT HIP ARTHRP W/WO AGRFT/ALGRFT MD PARTIAL EXCISION BONE TIBIA MD REMOVAL IMPLANT DEEP MD INSERTION DRUG DELIVERY IMPLANT Excision Bone Tibia/Fibula Removal Intramedullary Nail Tibia INSERTION,DRUG DELIVERY IMPLANT,[place] [address] [address] Department [place] [address] Phone: tel: fax: [place] [address] [place] [address] fax: Referral ID Status Reason Start Date Expiration Date Visits Re quested Visits Authorized [id number] 1 1 [facility] Work Phone: Reason for visit Narrative* Auth/Cert Specialty Diagnoses / Procedures Referred By Yumiko lynn Referred To Contact Diagnoses traumatic arthritis of right kne Procedures No [place] [address] [address] Department [place] [address] Phone: tel: fax: [facility] [address] [address] [place] [address] Referral ID Status Reason Start Date Expiration Date Visits Re quested Visits Authorized [id number] 1 1 [facility] Work Phone: Reason for visit Narrative* Auth/Cert Specialty Diagnoses / Procedures Referred By Yumiko t Referred To Contact Diagnoses 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, unspecified fracture morphology, subsequent encounter 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, unspecified fracture morphology, subsequent encounter [S82.101N] Procedures MD FREE SKIN FLAP W/MICROVASCULAR ANASTOMOSIS PROCEDURE, FREE FLAP, [place] [address] [address] Department of Surgery-[place] [address] Phone: tel: fax: [facility] [place] [address] [place] [address] fax: Referral ID Status Reason Start Date Expiration Date Visits Re quested Visits Authorized [id number] 1 1 [facility] Work Phone: Advance Directives Date Activated Date Inactivated Comments 03/25/2024 11:36 PM Question Answer Comments Plan of Care: Code Status Discussion Completed Decision Maker: Patient Date Activated Date Inactivated Comments 01/09/2024 2:10 PM 03/25/2024 11:36 PM Question Answer Comments Plan of Care: Code Status Discussion Completed Decision Maker: Patient Documents on File Type Date Recorded Patient Window [employer]er Expl anation Advance Directives and Living Will Power of Cash Applications Analyst Latest Code Status on File Code Status Date Activated Date Inactivated Comments Full Code 01/05/2019 6:58 PM 01/12/2019 2:25 PM Latest Code Status on File Code Status Date Activated Date Inactivated Comments Full Code 01/05/2019 6:58 PM Latest Code Status on File Code Status Date Activated Date Inactivated Comments Full Code 12/18/2020 3:31 PM Documents on File Type Date Recorded Patient [place] [employer]er Expl anation ACP-Advance Directive ACP-Power of Cash Applications Analyst Latest Code Status on File Code Status Date Activated Date Inactivated Comments Full Code 04/18/2021 1:51 AM Full Code 03/29/2021 11:51 PM 04/12/2021 7:30 PM Full Code 01/26/2021 10:21 PM 02/15/2021 12:36 AM Full Code 01/26/2021 9:54 PM 01/26/2021 10:16 PM Full Code 12/18/2020 3:31 PM 12/29/2020 6:30 PM Latest Code Status on File Code Status Date Activated Date Inactivated Comments Full Code 04/18/2021 1:51 AM 04/30/2021 8:03 PM Documents on File Type Date Recorded Patient [place] [employer] Expl anation Advance Directive(s) 07/28/2015 10:48 AM Documents on File Type Date Recorded Patient [place] [employer] Expl anation Advance Directive(s) 07/28/2015 10:48 AM Advance Directive Response Recorded Date/ Time Living Will No September 05, 2021 8:57am Power of Cash Applications Analyst No September 05 8:57am Date Activated Date Inactivated Comments 01/09/2024 2:10 PM Date Activated Date Inactivated Comments 05/05/2024 6:29 PM Question Answer Comments Plan of Care: Code Status Discussion Completed Decision Maker: Patient Date Activated Date Inactivated Comments 03/25/2024 11:36 PM 05/05/2024 6:29 PM Question Answer Comments Plan of Care: Code Status Discussion Completed Decision Maker: Patient Date Activated Date Inactivated Comments 01/09/2024 2:10 PM 03/25/2024 11:36 PM Question Answer Comments Plan of Care: Code Status Discussion Completed Decision Maker: Patient Advance Directive Response Recorded Date/ Time Living Will No April 25, 2024 3:34pm Power of Cash Applications Analyst No April 25 3:34pm Discharge Instructions * Discharge Instr - Lab* Janet Hammond RN - 01/11/2019 1:16 PM EST A referral has been made to [facility] for skilled home services. You will be contacted after discharge to arrange your first visit. Home care can be reached at [phone] for home care questions or concerns. You have a followup appointment at [facility] located on the ground floor near the main entrance registration area on FridayJanuary 18. You need to arrive at 7:40 am to register prior to your appointment at 8:00. The clinic can be reached at [phone]. * Additional Instructions* Cass Sánchez, ENGINE WATCHMAN - HAND PLUG SHAPER - 01/12/2019 Wound Vac changes 3 x weekly [facility] up with [facility] for wound vac changes, [place] packing left wrist daily documented in this encounter History of Present Illness * Linda Urbano PA-C - 01/11/2019 11:44 AM EST Hospitalist Progress Note 01/11/2019 11:44 AM Subjective: Admit Date: 01/05/2019 PCP: No primary care provider on file. Room#: 154/1541 Interval History: No overnight issues. The pt is feeling about the same as yesterday, she has not required any PRN pain medication and her nausea has improved. Denies chest pain, sob, abdominal pain,nausea, vomiting, diarrhea, constipation, fevers, or chills. DIET GENERAL; Dietary Nutrition Supplements: Standard High Calorie Oral Supplement Patient Vitals for the past 96 hrs (Last 3 readings): Weight 01/08/19 1341 175 lb (79.4 kg) 24HR INTAKE/OUTPUT: Intake/Output Summary (Last 24 hours) at 01/11/2019 1144 Last data filed at 01/11/2019 0610 Gross per 24 hour Intake Output 125 ml Net -125 ml Medications: sodium chloride 100 mL/hr at 01/10/192011 oxyCODONE 10 mg Oral Q6H ibuprofen 400 mg Oral 4x Daily linezolid 600 mg Oral 2 times per day methadone 90 mg Oral Daily lidocaine PF 5 mL Intradermal Once buPROPion 150 mg Oral BID gabapentin 600 mg Oral TID sertraline 100 mg Oral Daily sodium chloride flush 10 mL Intravenous 2 times per day acetaminophen 1,000 mg Oral 3 times per day enoxaparin 40 mg Subcutaneous Daily LABS: CBC: Recent Labs 01/09/1951201/10/1943801/10/19 1200 WBC 12.5* 10.3 -- RBC 2.86* 2.63* -- HGB 8.1* 7.6* 8.5* HCT 24.6* 22.6* 26.5* MCV 86.2 85.9 -- RDW 13.3 13.2 -- PLT 452* 420 -- BMP: Recent Labs 01/09/1951201/10/19438 NA 135 137 K 3.8 3.8 CL 104 108* CO2 28 26 BUN 17 12 CREATININE 1.29* 1.22 GLUCOSE 93 90 CALCIUM 8.0* 8.0* ANIONGAP 3 3 LIVER PROFILE: Recent Labs 01/09/19 0513 01/10/19 0439 AST 29 19 ALT 26 30 BILITOT 0.3 0.2 ALKPHOS 116 128* LABALBU 2.5* 2.4* PROT 5.3* 5.1* PT/INR: No results for input(s): PROTIME, INR in the last 72 hours. CARDIAC ENZYMES: No results for input(s): TROPONINI in the last 72 hours. Procalcitonin: Lab Results Component Value Date PROCAL 0.10 01/07/2019 Objective: Vitals: BP 131/82 Pulse 72 Temp 97.8 F (36.6 C) (Temporal) Resp 17 Ht 5' 6 (1.676 m) Wt 175 lb (79.4 kg) SpO2 96% BMI 28.25 kg/m Pulse Ox: SpO2 Av.3 % Min: 96 % Max: 99 % Supplemental O2: O2 Flow Rate (L/min): 8 L/min General appearance: No apparent distress, appears stated age and cooperative with exam. HEENT: Normal cephalic, atraumatic without obvious deformity. Extra ocular muscles intact. Conjunctivae/corneas clear. Neck: Supple, with full range of motion. No jugular venous distention. Trachea midline. Respiratory: Normal respiratory effort. Clear to auscultation, bilaterally without Rales/Wheezes/Rhonchi. Cardiovascular: Regular rate and rhythm with normal S1/S2 without murmurs, rubs or gallops. Abdomen: Soft, non-tender, non-distended with normal bowel sounds. No rebound or guarding. Musculoskeletal: Wound vac in place on RUE, edema noted, no leaks noted. Skin: Erythema noted around the wound, s/p I&D of abscess on R wrist. Neurologic: Neurovascularly intact without any focal sensory/motor deficits. Cranial nerves: II-XIIintact, grossly non-focal. Assessment/Plan 1. Necrotizing fasciitis R arm: ID following for abx, recommending continuation of linezolid. Surgery following and recommending continuation of wound vac and dressing changes. She will follow up as an outpt for wound grafting. BC x2 NGTD. Wound cultures positive for MRSA. 2. MRSA skin infection: see above tx. 3. Polysubstance use disorder: pt on methadone with recent relapse. Addiction med consulted and following, will cont methadone tx at this time. Addiction med recommending to wean pt off PO dilaudid and then PO oxycodone. Pt has not had any PO dilaudid, discussed with general surgery to DC this. Also discussed the plan to wean scheduled PO oxy in anticipation of DC home. CM following for wound vacneeds. 4. Hep C -am labs, replace lytes prn -increase activity -DVT prophylaxis: [x] Lovenox [] Heparin [] SCDs [x] Encourage ambulation [] Already on Anticoagulation Advance Directive: Full Code Discharge planning: Arrangements being made to wean pt off PO pain medications as well as arrange for wound vac changes 3 times a week. CM following. Signed: Linda Urbano PA-C Inpatient Medical Services 01/11/2019, 11:44 AM * Lily Quezada PA-C - 01/11/2019 10:46 AM EST Surgery Post Op Progress Note PATIENT NAME: Deidra De La Cruz TODAY'S DATE: 01/11/2019 SUBJECTIVE: no acute events overnight. TRAP PULLER stopped, pain controlled with scheduled po IR oxycodone,did not use breakthrough prn pain control option. No new abscesses. Tolerating diet. Denies fever, chills, nausea, vomiting. Wound vac in place, does have current leak, 175cc output yesterday recorded. Pain controlled Yes Other Complaints Yes Flatus/BM/or Ostomy function Yes OBJECTIVE: VITALS: BP 132/80 Pulse 70 Temp 97.1 F (36.2 C) (Temporal) Resp 17 Ht 5' 6 (1.676 m) Wt 175 lb (79.4 kg) SpO2 97% BMI 28.25 kg/m INTAKE/OUTPUT: I/O last 3 completed shifts: In: - Out: 175 [Drains:175] No intake/output data recorded. CONSTITUTIONAL: awake and alert ABDOMEN: Soft, non-distended, non-tender INCISION: clean, dry. Wound vac of upper right extremity with leak, no surrounding erythema, appropriately tender to palpate; left wrist incision with packing; right wrist with open I&D site withimproving erythema, non-tender, no drainage. Data: CBC: Recent Labs 01/09/1951201/10/1943801/10/19 1200 WBC 12.5* 10.3 -- HGB 8.1* 7.6* 8.5* HCT 24.6* 22.6* 26.5* PLT 452* 420 -- BMP: Recent Labs 01/09/1951201/10/19438 NA 135 137 K 3.8 3.8 CL 104 108* CO2 28 26 BUN 17 12 CREATININE 1.29* 1.22 GLUCOSE 93 90 Hepatic: Recent Labs 01/09/1951201/10/19438 AST 29 19 ALT 26 30 BILITOT 0.3 0.2 ALKPHOS 116 128* ASSESSMENT AND PLAN: Ms. De La Cruz is a 48yo F, with Hep C & recent IVDU on methadone, presenting with right upper armnecrotizing soft tissue infection. Is s/p 3x debridement of skin/subcutaneous tissue of right upperarm (01/05, 01/06, 01/07), and I&D of left wrist abscess (01/07), bedside I&D right wrist 01/10 - wound care: -Wound vac right upper arm: Reapplied on 01/08. To be replaced today. - outpatient follow up with wound care regarding wound vac - outpatient follow up with plastic surgery for wound grafting - atbx: per ID, currently on PO linezolid - diet: general - prn pain/nausea medications - PO ibuprofen added - PO tylenol - however does have hep C, monitor LFTs - morphine TRAP PULLER started 01/05, dc'd 01/10 - Dr. Mcdaniel with addiction services gave weaning recs. Rx changed per his recs. If patient having problem with uncontrolled pain, RN advised to page addiction services for direction - changed pain medication to prn IR oxycodone today - activity as tolerated - disposition: Will be discharged with wound vac - patient to follow with wound care regarding vac.On PO atbx. Goal now is to wean to PO pain meds, pain meds changed to prn medications. Dispo planning. Lily Quezada PA-C Personal Pager [phone] [facility] Surgery Pager [phone] during hours 7:30a-4:30p Friday-Friday After hours, please contact physician taxation economist. Associated attestation - Dimitry Barba MD - 01/11/2019 6:21 PM EST [facility] - Surgery [facility] Physicians Surgery Patient Name: Deirda De La Cruz Date: 01/11/19 Patient seen and examined. Feels better after wrist I&D yesterday. Denies fevers/chills. Tolerating regular diet. CBC: Recent Labs 01/09/1951201/10/1943801/10/19 1200 WBC 12.5* 10.3 -- HGB 8.1* 7.6* 8.5* HCT 24.6* 22.6* 26.5* PLT 452* 420 -- BMP: Recent Labs 01/09/1951201/10/19438 NA 135 137 K 3.8 3.8 CL 104 108* CO2 28 26 BUN 17 12 CREATININE 1.29* 1.22 GLUCOSE 93 90 Hepatic: Recent Labs 01/09/1951201/10/19438 ALKPHOS 116 128* ALT 26 30 AST 29 19 PROT 5.3* 5.1* BILITOT 0.3 0.2 LABALBU 2.5* 2.4* RUE: Gross motor and sensation intact, palpable radial pulse, RUE dressing clean, dry and intact Abdomen: Soft, nontender, nondistended. Plan: 48 yo F with necrotizing skin and soft tissue infection of the RUE Continue wound vac and wound care management Methadone use with recent relapse- ADM recommendations appreciated, weaning PO oxycodone Necrotizing SSI- plan for outpatient PO Zyvox per ID Large wound with tissue defect- will follow with wound care as outpatient, will follow up with Dr. Moreno, plastic surgery, for wound coverage after antibiotic course complete Dispo: patient with difficult to manage wound, social work looking into options, dispo planning ongoing I personally supervised my PA in the evaluation and management of Deidra De La Cruz in the developmentof a treatment plan for this patient. I personally interviewed the patient and performed an individual physical examination. In addition, I discussed the patient's condition and treatment options with them. I have also reviewed and agree with the past medical, family and social history and care plan unless otherwise noted. All of the patient's questions were answered. Greater than 51% of the 15 minute total care time including chart review, care coordination and face to face encounter was spent discussing/counseling the patient regarding the care plan for this patient. The patient was seen and examined independently and relevant data reviewed by myself. A full chart review was performed. Dimitry Barba MD General Surgery Pager #[phone] Perfect Serve: Dimitry Barba 6:19 PM 01/11/2019 * Dinah Aj RN - 01/11/2019 4:14 AM EST IV access lost, asked Dr. Kim if she needed an IV, pt not receiving anything other than fluids. Oral abx. Stated r/t diagnosis of necrotizing fascititis, wanted a line. This RN attempted, was unableto place. [place] [facility] Application Support Specialist attempted w IV ultrasound, was unable to place. Will pass on to day team. Unable to get labs r/t poor venous access, will pass on. * Nisreen Masters MD - 01/10/2019 3:39 PM EST [facility]-Infectious Diseases Attending Consult Note Reason for F/U: Necrotizing fascitis, right arm History of Present Illness: F/U for necrotizing infection of right arm due to MRSA, s/p I&D x2, POD#5 and 4. She was alert,laying on bed, felt better, c/o pain in right wrist, no fever, appeared comfortable. She presented with extensive swelling, redness, and pain in right arm for a week. In ED, she had extensive swelling, redness, and skin breakdown on the underside of right arm with induration and redness to her right axilla and lateral chest wall. She had leukocytosis (14.8k), and elevated crp (255.1). She denied any fever, chill, cough, abdominal pain, dysuria, diarrhea. She has h/o IVDU, last use during last week. She has h/o Hep C, did not receive treatment due to IVDU. She was examined, ROS and chart were reviewed, treatment plan was discussed. Past Medical History: Diagnosis Date Drug abuse (HCC) Hepatitis C without hepatic coma Past Surgical History: Procedure Laterality Date ARM DEBRIDEMENT Right 01/05/2019 ARM DEBRIDEMENT Right 01/06/2019 Current Medications: Current Facility-Administered Medications: oxyCODONE (ROXICODONE) immediate release tablet 10 mg, 10 mg, Oral, Q6H HYDROmorphone (DILAUDID) tablet 4 mg, 4 mg, Oral, Q6H PRN ibuprofen (ADVIL;MOTRIN) tablet 400 mg, 400 mg, Oral, 4x Daily 0.9 % sodium chloride infusion, , Intravenous, Continuous linezolid (ZYVOX) tablet 600 mg, 600 mg, Oral, 2 times per day methadone (DOLOPHINE) 10 MG/ML solution 90 mg, 90 mg, Oral, Daily lidocaine PF 1 % injection 5 mL, 5 mL, Intradermal, Once buPROPion (WELLBUTRIN SR) extended release tablet 150 mg, 150 mg, Oral, BID gabapentin (NEURONTIN) tablet 600 mg, 600 mg, Oral, TID sertraline (ZOLOFT) tablet 100 mg, 100 mg, Oral, Daily sodium chloride flush 0.9 % injection 10 mL, 10 mL, Intravenous, 2 times per day sodium chloride flush 0.9 % injection 10 mL, 10 mL, Intravenous, PRN ondansetron (ZOFRAN) injection 4 mg, 4 mg, Intravenous, Q6H PRN acetaminophen (TYLENOL) tablet 1,000 mg, 1,000 mg, Oral, 3 times per day enoxaparin (LOVENOX) injection 40 mg, 40 mg, Subcutaneous, Daily Allergies: Allergies Allergen Reactions Penicillins Social History Socioeconomic History Marital status: Single Spouse name: None Number of children: None Years of education: None Highest education level: None Occupational History None Social Needs Financial resource strain: None Food insecurity: Worry: None Inability: None Transportation needs: Medical: None Non-medical: None Tobacco Use Smoking status: Current Every Day Smoker Smokeless tobacco: Never Used Substance and Sexual Activity Alcohol use: Not Currently Drug use: Yes Types: IV, Opiates Sexual activity: None Lifestyle Physical activity: Days per week: None Minutes per session: None Stress: None Relationships Social connections: Talks on phone: None Gets together: None Attends nondenominational service: None Active member of club or organization: None Attends meetings of clubs or organizations: None Relationship status: None Intimate partner violence: Fear of current or ex partner: None Emotionally abused: None Physically abused: None Forced sexual activity: None Other Topics Concern None Social History Narrative None History reviewed. No pertinent family history.FH: -neg for CAD Review of Systems: CONSTITUTIONAL: positive for fatigue EYES: negative HEENT: negative RESPIRATORY: negative CARDIOVASCULAR: negative GASTROINTESTINAL: negative GENITOURINARY: negative INTEGUMENT/BREAST: negative HEMATOLOGIC/LYMPHATIC: negative ALLERGIC/IMMUNOLOGIC: negative ENDOCRINE: negative MUSCULOSKELETAL: Swelling, redness, pain in right arm NEUROLOGICAL: positive for weakness BEHAVIOR/PSYCH: negative Physical Exam: Vitals: BP 119/77 Pulse 73 Temp 96.6 F (35.9 C) (Temporal) Resp 18 Ht 5' 6 (1.676 m) Wt 175 lb (79.4 kg) SpO2 99% BMI 28.25 kg/m CONSTITUTIONAL: awake, alert, cooperative, appeared ill, and appears older than stated age EYES: Lids and lashes normal, pupils equal, round and reactive to light, extra ocular muscles intact, sclera clear, conjunctiva normal ENT: Normocephalic, without obvious abnormality, atraumatic, sinuses nontender on palpation, external ears without lesions, oral pharynx with moist mucus membranes, tonsils without erythema or exudates, gums normal and good dentition. NECK: Supple, symmetrical, trachea midline, no adenopathy, thyroid symmetric, not enlarged and no tenderness, skin normal HEMATOLOGIC/LYMPHATICS: no cervical lymphadenopathy BACK: Symmetric, no curvature, spinous processes are non-tender on palpation, paraspinous muscles are non-tender on palpation, no costal vertebral tenderness LUNGS: No increased work of breathing, good air exchange, clear to auscultation bilaterally, no crackles or wheezing CARDIOVASCULAR: Normal apical impulse, regular rate and rhythm, normal S1 and S2, no S3 or S4, and no murmur noted ABDOMEN: No scars, normal bowel sounds, soft, non-distended, non-tender, no masses palpated, no hepatosplenomegally MUSCULOSKELETAL: Rt arm post-I&D, dressed, tender on palpation. There is no redness, warmth, orswelling of the joints. Full range of motion noted. Motor strength is 5 out of 5 all extremities bilaterally. Tone is normal. NEUROLOGIC: Awake, alert, oriented to name, place and time. Cranial nerves II- XII are grossly intact. Motor is 5 out of 5 bilaterally. Cerebellar finger to nose, heel to morgan intact. Sensory is intact. Babinski down going, Romberg negative, and gait is normal. SKIN: Warm, dry and no rashes Labs: CBC with Differential: Lab Results Component Value Date WBC 10.3 01/10/2019 RBC 2.63 01/10/2019 HGB 8.5 01/10/2019 HCT 26.5 01/10/2019 PLT 420 01/10/2019 MCV 85.9 01/10/2019 MCH 28.8 01/10/2019 MCHC 33.5 01/10/2019 RDW 13.2 01/10/2019 METASPCT 4 01/07/2019 LYMPHOPCT 14.1 01/10/2019 MONOPCT 3.9 01/10/2019 BASOPCT 0.8 01/10/2019 MONOSABS 0.4 01/10/2019 LYMPHSABS 1.5 01/10/2019 EOSABS 0.2 01/10/2019 BASOSABS 0.1 01/10/2019 CMP: Lab Results Component Value Date NA 137 01/10/2019 K 3.8 01/10/2019 CL 108 01/10/2019 CO2 26 01/10/2019 BUN 12 01/10/2019 CREATININE 1.22 01/10/2019 GLUCOSE 90 01/10/2019 PROT 5.1 01/10/2019 LABALBU 2.4 01/10/2019 CALCIUM 8.0 01/10/2019 BILITOT 0.2 01/10/2019 ALKPHOS 128 01/10/2019 AST 19 01/10/2019 ALT 30 01/10/2019 Blood Culture: No components found for: CBLOOD, [id number] blood-neg Wound Culture: 01/05 Rt arm tissue: MRSA crp 88.2 (255.1) procal 0.10 Lines: PIV site ok Radiography/Echo/Other: reviewed Antimicrobials, Start/End Dates: Linezolid#4, s/p pip/tazo#2, Prema#1, vanco#1, clinda#1 Impression: 1. Necrotizing fascitis, right arm due to MRSA, s/p I&D x2. 2. H/o IVDU. 3. Tobacco abuse. Cessation discussed. Plan: Pt clinically improved; was sick due to acute necrotizing soft tissue infection in right arm. S/p I&D x2. Afebrile. Blood cx -neg so far. Continue linezolid for 10 more days. Cessation of tobaccoemphasized, 5 minutes spent. Will follow. Nisreen Masters MD * Viviana Ramírez PA-C - 01/10/2019 12:28 PM EST Surgery Post Op Progress Note PATIENT NAME: Deidra De La Cruz TODAY'S DATE: 01/10/2019 SUBJECTIVE: no acute events overnight. Reports that she is trying to wean herself down from the TRAP PULLER. Pain controlled. Now reporting new abscess on right wrist. VSS, wound vac with 50cc output, leukocytosis resolved 10.3<12.5, hgb 8.5>7.6, (+) hep c Pain controlled Yes Other Complaints Yes Flatus/BM/or Ostomy function Yes OBJECTIVE: VITALS: BP 115/73 Pulse 76 Temp 97.1 F (36.2 C) (Temporal) Resp 18 Ht 5' 6 (1.676 m) Wt 175 lb (79.4 kg) SpO2 98% BMI 28.25 kg/m INTAKE/OUTPUT: I/O last 3 completed shifts: In: 360 [P.O.:360] Out: 400 [Urine:400] I/O this shift: In: - Out: 50 [Drains:50] CONSTITUTIONAL: awake and alert ABDOMEN: Soft, non-distended, non-tender INCISION: clean, dry. Wound vac of upper right extremity with good seal, no surrounding erythema, appropriately tender to palpate; left wrist incision with packing; right wrist now with new area of fluctuance, mild erythema, excoriation Data: CBC: Recent Labs 01/08/19 0318 01/09/19 0513 01/10/19 0439 01/10/19 1200 WBC 17.1* 12.5* 10.3 -- HGB 8.3* 8.1* 7.6* 8.5* HCT 24.7* 24.6* 22.6* 26.5* PLT 525* 452* 420 -- BMP: Recent Labs 01/08/19 0318 01/09/19 0513 01/10/19438 NA 136 135 137 K 4.5 3.8 3.8 CL 103 104 108* CO2 27 28 26 BUN 16 17 12 CREATININE 0.97 1.29* 1.22 GLUCOSE 98 93 90 Hepatic: Recent Labs 01/08/19 0318 01/09/19 0513 01/10/199 AST 23 29 19 ALT 26 26 30 BILITOT 0.2 0.3 0.2 ALKPHOS 153* 116 128* ASSESSMENT AND PLAN: Ms. De La Cruz is a 48yo F, with Hep C & recent IVDU on methadone, presenting with right upper armnecrotizing soft tissue infection. Is s/p 3x debridement of skin/subcutaneous tissue of right upperarm (01/05, 01/06, 01/07), and I&D of left wrist abscess (01/07) - wound care: -Wound vac right upper arm: Reapplied on 01/08 - appreciate wound care recs - outpatient follow up with plastic surgery for wound grafting - right wrist abscess: bedside I&D today - atbx: per ID, currently on PO linezolid - diet: general - prn pain/nausea medications - PO ibuprofen added - PO tylenol - however does have hep C, monitor LFTs - morphine TRAP PULLER started 01/05, dc'd 01/10 - Dr. Mcdaniel with addiction services gave weaning recs. Rx changed per his recs. If patient having problem with uncontrolled pain, RN advised to page addiction services for direction - activity as tolerated - disposition: Will be discharged with wound vac - wound care recommending facility vs outpatient follow up. On PO atbx. Goal now is to wean to PO pain meds. Recs per addiction medicine - changed today. Dispo planning. Please do no hesitate to contact with questions. Personal pager: [phone] For other general surgery inquiries, please page [phone] during the hours of 7:30a-4:30p, Friday-Friday. After hours, please contact the physician taxation economist. * Linda Urbano PA-C - 01/10/2019 11:15 AM EST Hospitalist Progress Note 01/10/2019 11:15 AM Subjective: Admit Date: 01/05/2019 PCP: No primary care provider on file. Room#: 154/1541 Interval History: No overnight issues. The pt is feeling better and her nausea has improved with medication. She states her pain is still present but slightly improving. Denies chest pain, sob, diarrhea, constipation, fevers, or chills. DIET GENERAL; Dietary Nutrition Supplements: Standard High Calorie Oral Supplement Patient Vitals for the past 96 hrs (Last 3 readings): Weight 01/08/19 1341 175 lb (79.4 kg) 24HR INTAKE/OUTPUT: Intake/Output Summary (Last 24 hours) at 01/10/2019 1115 Last data filed at 01/10/2019 0824 Gross per 24 hour Intake 360 ml Output 50 ml Net 310 ml Medications: sodium chloride 100 mL/hr at 01/10/19 0924 morphine linezolid 600 mg Oral 2 times per day methadone 90 mg Oral Daily lidocaine PF 5 mL Intradermal Once buPROPion 150 mg Oral BID gabapentin 600 mg Oral TID sertraline 100 mg Oral Daily sodium chloride flush 10 mL Intravenous 2 times per day acetaminophen 1,000 mg Oral 3 times per day enoxaparin 40 mg Subcutaneous Daily LABS: CBC: Recent Labs 01/08/1931701/09/1951201/10/19438 WBC 17.1* 12.5* 10.3 RBC 2.95* 2.86* 2.63* HGB 8.3* 8.1* 7.6* HCT 24.7* 24.6* 22.6* MCV 83.8 86.2 85.9 RDW 13.5 13.3 13.2 PLT 525* 452* 420 BMP: Recent Labs 01/08/1931701/09/1951201/10/19438 NA 136 135 137 K 4.5 3.8 3.8 CL 103 104 108* CO2 27 28 26 BUN 16 17 12 CREATININE 0.97 1.29* 1.22 GLUCOSE 98 93 90 CALCIUM 8.2* 8.0* 8.0* ANIONGAP 6 3 3 LIVER PROFILE: Recent Labs 01/08/19 0318 01/09/19 0513 01/10/19 0439 AST 23 29 19 ALT 26 26 30 BILITOT 0.2 0.3 0.2 ALKPHOS 153* 116 128* LABALBU 2.6* 2.5* 2.4* PROT 5.3* 5.3* 5.1* PT/INR: No results for input(s): PROTIME, INR in the last 72 hours. CARDIAC ENZYMES: No results for input(s): TROPONINI in the last 72 hours. Procalcitonin: Lab Results Component Value Date PROCAL 0.10 01/07/2019 Objective: Vitals: BP (!) 140/86 Pulse 69 Temp 96.9 F (36.1 C) (Temporal) Resp 17 Ht 5' 6 (1.676 m) Wt 175 lb (79.4 kg) SpO2 99% BMI 28.25 kg/m Pulse Ox: SpO2 Av.4 % Min: 96 % Max: 100 % Supplemental O2: O2 Flow Rate (L/min): 8 L/min General appearance: No apparent distress, appears stated age and cooperative with exam. HEENT: Normal cephalic, atraumatic without obvious deformity. Extra ocular muscles intact. Conjunctivae/corneas clear. Neck: Supple, with full range of motion. No jugular venous distention. Trachea midline. Respiratory: Normal respiratory effort. Clear to auscultation, bilaterally without Rales/Wheezes/Rhonchi. Cardiovascular: Regular rate and rhythm with normal S1/S2 without murmurs, rubs or gallops. Abdomen: Soft, non-tender, non-distended with normal bowel sounds. No rebound or guarding. Musculoskeletal: Wound vac in place on RUE, edema noted, no leaks noted. Skin: Erythema noted around the wound, and some erythema over lateral side of wrist. Neurologic: Neurovascularly intact without any focal sensory/motor deficits. Cranial nerves: II-XIIintact, grossly non-focal. Assessment/Plan 1. Necrotizing fasciitis R arm: ID following for abx, recommending 12 more days of linezolid. Surgery following and recommending continuation of wound vac and dressing changes. She will follow up as an outpt for wound grafting. BC x2 NGTD. Wound cultures positive for MRSA. 2. MRSA skin infection: see above tx. 3. Polysubstance use disorder: pt on methadone with recent relapse. Addiction med consulted and following, will cont methadone tx at this time. Addiction med recommending decreasing the total TRAP PULLER dose by 15% daily, also to wean pt off PO dilaudid and then PO oxycodone. 4. Hep C -am labs, replace lytes prn -increase activity -DVT prophylaxis: [x] Lovenox [] Heparin [] SCDs [x] Encourage ambulation [] Already on Anticoagulation Advance Directive: Full Code Discharge planning: Pt may need up to 4 days of weaning off pain medication per addiction med. Signed: Linda Urbano PA-C Inpatient Medical Services 01/10/2019, 11:15 AM * Gerardo Mcdaniel MD - 01/10/2019 10:59 AM EST The patient is not seen but the chart is reviewed A/p 1- Opioid use disorder severe without Withdrawal on MAT methadone mg daily Patient is not going through withdrawals because of full opioid agonists for pain mangment on board Please consider that the patient has opioid induced hyperalgesia, due to her chronic exposure to opioids. Frequent rotations of different opioid is recommended, putting in mind the patient will need higher doses than that needed by narcotic naive patients. Recommend using immediate release short acting medications like oxycodone and dilaudid prn for the current acute pain. The patient can alternate between oxycodone 10 mg q 6 hours around the clock and prn dilaudid 4 mg po q 6 hours for sever pain. When pain is controlled ok to decrease the total dose by 15 % daily, prefer to wean patient off PO dilaudid first and then the prn oxycodone PRN .Oral pain meds are preferred over iv due to his addiction problem All the above while keeping the patients MAT regular dose, and then can use more acetaminophen or NSAID's if allowed. the above can take up to 4 days of weaning Remaining medical management per primary team. Thanks for the consult will sign off, if have any question or please call ADM taxation economist. GERARDO MCDANIEL * Linda Urbano PA-C - 01/09/2019 11:34 AM EST Hospitalist Progress Note 01/09/2019 11:34 AM Subjective: Admit Date: 01/05/2019 PCP: No primary care provider on file. Room#: 154/1541 Interval History: No overnight issues. The pt is complaining of some nausea and pain in her R arm, but she states she otherwise is feeling well. Denies chest pain, sob, diarrhea, constipation, fevers, or chills. DIET GENERAL; Dietary Nutrition Supplements: Standard High Calorie Oral Supplement Patient Vitals for the past 96 hrs (Last 3 readings): Weight 01/08/19 1341 175 lb (79.4 kg) 24HR INTAKE/OUTPUT: Intake/Output Summary (Last 24 hours) at 01/09/2019 1134 Last data filed at 01/09/2019 1041 Gross per 24 hour Intake 18 ml Output 400 ml Net -382 ml Medications: sodium chloride 100 mL/hr at 01/09/19 0235 morphine linezolid 600 mg Oral 2 times per day methadone 90 mg Oral Daily lidocaine PF 5 mL Intradermal Once buPROPion 150 mg Oral BID gabapentin 600 mg Oral TID sertraline 100 mg Oral Daily sodium chloride flush 10 mL Intravenous 2 times per day acetaminophen 1,000 mg Oral 3 times per day enoxaparin 40 mg Subcutaneous Daily LABS: CBC: Recent Labs 01/07/1952701/08/1931701/09/19512 WBC 12.3* 17.1* 12.5* RBC 2.80* 2.95* 2.86* HGB 8.0* 8.3* 8.1* HCT 23.4* 24.7* 24.6* MCV 83.6 83.8 86.2 RDW 13.2 13.5 13.3 PLT 360 525* 452* BMP: Recent Labs 01/07/1952701/08/1931701/09/19512 NA 134* 136 135 K 4.3 4.5 3.8 CL 102 103 104 CO2 29 27 28 BUN 17 16 17 CREATININE 0.65 0.97 1.29* GLUCOSE 77 98 93 CALCIUM 8.1* 8.2* 8.0* ANIONGAP 2 6 3 LIVER PROFILE: Recent Labs 01/07/19 0528 01/08/19 0318 01/09/19 0513 AST 15 23 29 ALT 29 26 26 BILITOT 0.2 0.2 0.3 ALKPHOS 141* 153* 116 LABALBU 2.4* 2.6* 2.5* PROT 4.9* 5.3* 5.3* PT/INR: No results for input(s): PROTIME, INR in the last 72 hours. CARDIAC ENZYMES: No results for input(s): TROPONINI in the last 72 hours. Procalcitonin: Lab Results Component Value Date PROCAL 0.10 01/07/2019 Objective: Vitals: BP 123/78 Pulse 67 Temp 98 F (36.7 C) (Temporal) Resp 17 Ht 5' 6 (1.676 m) Wt 175 lb (79.4 kg) SpO2 97% BMI 28.25 kg/m Pulse Ox: SpO2 Av.6 % Min: 96 % Max: 100 % Supplemental O2: O2 Flow Rate (L/min): 8 L/min General appearance: No apparent distress, appears stated age and cooperative with exam HEENT: Normal cephalic, atraumatic without obvious deformity. Extra ocular muscles intact. Conjunctivae/corneas clear. Neck: Supple, with full range of motion. No jugular venous distention. Trachea midline. Respiratory: Normal respiratory effort. Clear to auscultation, bilaterally without Rales/Wheezes/Rhonchi. Cardiovascular: Regular rate and rhythm with normal S1/S2 without murmurs, rubs or gallops. Abdomen: Soft, non-tender, non-distended with normal bowel sounds. No rebound or guarding. Musculoskeletal: Wound vac in place on RUE, edema noted. Skin: Erythema noted around the wound, and some erythema over lateral side of wrist. Neurologic: Neurovascularly intact without any focal sensory/motor deficits. Cranial nerves: II-XIIintact, grossly non-focal. Assessment/Plan 1. Necrotizing fasciitis R arm: ID following for abx, recommending 12 more days of linezolid. Surgery following and recommending continuation of wound vac and dressing changes. She will follow up as an outpt for wound grafting. BC x2 NGTD. Wound cultures positive for MRSA. 2. MRSA skin infection: see above tx. 3. Polysubstance use disorder: pt on methadone with recent relapse. Addiction med consulted and following, will cont methadone tx at this time. 4. Hep C -am labs, replace lytes prn -increase activity -DVT prophylaxis: [x] Lovenox [] Heparin [] SCDs [x] Encourage ambulation [] Already on Anticoagulation Advance Directive: Full Code Discharge planning: TBD Signed: Linda Urbano PA-C Inpatient Medical Services 01/09/2019, 11:34 AM * Nisreen Masters MD - 01/08/2019 8:32 PM EST [facility]-Infectious Diseases Attending Consult Note Reason for F/U: Necrotizing fascitis, right arm History of Present Illness: F/U for necrotizing infection of right arm, s/p I&D x2, POD#3 and 2. She was alert, laying on bed, felt better, c/o pain in right arm during VAC-change, no fever, appeared comfortable. She presented with extensive swelling, redness, and pain in right arm for a week. In ED, she had extensive swelling, redness, and skin breakdown on the underside of right arm with induration and redness to her right axilla and lateral chest wall. She had leukocytosis (14.8k), and elevated crp (255.1). She denied any fever, chill, cough, abdominal pain, dysuria, diarrhea. She has h/o IVDU, last use during last week. She has h/o Hep C, did not receive treatment. She was examined, ROS and chart were reviewed, treatment plan was discussed. Past Medical History: Diagnosis Date Drug abuse (HCC) Hepatitis C without hepatic coma Past Surgical History: Procedure Laterality Date ARM DEBRIDEMENT Right 01/05/2019 ARM DEBRIDEMENT Right 01/06/2019 Current Medications: Current Facility-Administered Medications: 0.9 % sodium chloride infusion, , Intravenous, Continuous linezolid (ZYVOX) tablet 600 mg, 600 mg, Oral, 2 times per day methadone (DOLOPHINE) 10 MG/ML solution 90 mg, 90 mg, Oral, Daily piperacillin-tazobactam (ZOSYN) 3.375 g in dextrose 50 mL IVPB extended infusion (premix), 3.375 g,Intravenous, Q8H lidocaine PF 1 % injection 5 mL, 5 mL, Intradermal, Once buPROPion (WELLBUTRIN SR) extended release tablet 150 mg, 150 mg, Oral, BID gabapentin (NEURONTIN) tablet 600 mg, 600 mg, Oral, TID sertraline (ZOLOFT) tablet 100 mg, 100 mg, Oral, Daily sodium chloride flush 0.9 % injection 10 mL, 10 mL, Intravenous, 2 times per day sodium chloride flush 0.9 % injection 10 mL, 10 mL, Intravenous, PRN ondansetron (ZOFRAN) injection 4 mg, 4 mg, Intravenous, Q6H PRN acetaminophen (TYLENOL) tablet 1,000 mg, 1,000 mg, Oral, 3 times per day enoxaparin (LOVENOX) injection 40 mg, 40 mg, Subcutaneous, Daily naloxone (NARCAN) injection 0.4 mg, 0.4 mg, Intravenous, PRN morphine TRAP PULLER 1 mg/mL, , Intravenous, Continuous Allergies: Allergies Allergen Reactions Penicillins Social History Socioeconomic History Marital status: Single Spouse name: None Number of children: None Years of education: None Highest education level: None Occupational History None Social Needs Financial resource strain: None Food insecurity: Worry: None Inability: None Transportation needs: Medical: None Non-medical: None Tobacco Use Smoking status: Current Every Day Smoker Smokeless tobacco: Never Used Substance and Sexual Activity Alcohol use: Not Currently Drug use: Yes Types: IV, Opiates Sexual activity: None Lifestyle Physical activity: Days per week: None Minutes per session: None Stress: None Relationships Social connections: Talks on phone: None Gets together: None Attends nondenominational service: None Active member of club or organization: None Attends meetings of clubs or organizations: None Relationship status: None Intimate partner violence: Fear of current or ex partner: None Emotionally abused: None Physically abused: None Forced sexual activity: None Other Topics Concern None Social History Narrative None History reviewed. No pertinent family history.FH: -neg for CAD Review of Systems: CONSTITUTIONAL: positive for fatigue EYES: negative HEENT: negative RESPIRATORY: negative CARDIOVASCULAR: negative GASTROINTESTINAL: negative GENITOURINARY: negative INTEGUMENT/BREAST: negative HEMATOLOGIC/LYMPHATIC: negative ALLERGIC/IMMUNOLOGIC: negative ENDOCRINE: negative MUSCULOSKELETAL: Swelling, redness, pain in right arm NEUROLOGICAL: positive for weakness BEHAVIOR/PSYCH: negative Physical Exam: Vitals: BP 107/66 Pulse 71 Temp 97.7 F (36.5 C) (Temporal) Resp 18 Ht 5' 6 (1.676 m) Wt 175 lb (79.4 kg) SpO2 98% BMI 28.25 kg/m CONSTITUTIONAL: awake, alert, cooperative, appeared ill, and appears older than stated age EYES: Lids and lashes normal, pupils equal, round and reactive to light, extra ocular muscles intact, sclera clear, conjunctiva normal ENT: Normocephalic, without obvious abnormality, atraumatic, sinuses nontender on palpation, external ears without lesions, oral pharynx with moist mucus membranes, tonsils without erythema or exudates, gums normal and good dentition. NECK: Supple, symmetrical, trachea midline, no adenopathy, thyroid symmetric, not enlarged and no tenderness, skin normal HEMATOLOGIC/LYMPHATICS: no cervical lymphadenopathy BACK: Symmetric, no curvature, spinous processes are non-tender on palpation, paraspinous muscles are non-tender on palpation, no costal vertebral tenderness LUNGS: No increased work of breathing, good air exchange, clear to auscultation bilaterally, no crackles or wheezing CARDIOVASCULAR: Normal apical impulse, regular rate and rhythm, normal S1 and S2, no S3 or S4, and no murmur noted ABDOMEN: No scars, normal bowel sounds, soft, non-distended, non-tender, no masses palpated, no hepatosplenomegally MUSCULOSKELETAL: Rt arm post-I&D, dressed, tender on palpation. There is no redness, warmth, orswelling of the joints. Full range of motion noted. Motor strength is 5 out of 5 all extremities bilaterally. Tone is normal. NEUROLOGIC: Awake, alert, oriented to name, place and time. Cranial nerves II- XII are grossly intact. Motor is 5 out of 5 bilaterally. Cerebellar finger to nose, heel to morgan intact. Sensory is intact. Babinski down going, Romberg negative, and gait is normal. SKIN: Warm, dry and no rashes Labs: CBC with Differential: Lab Results Component Value Date WBC 17.1 01/08/2019 RBC 2.95 01/08/2019 HGB 8.3 01/08/2019 HCT 24.7 01/08/2019 PLT 525 01/08/2019 MCV 83.8 01/08/2019 MCH 28.3 01/08/2019 MCHC 33.7 01/08/2019 RDW 13.5 01/08/2019 METASPCT 4 01/07/2019 LYMPHOPCT 11.6 01/08/2019 MONOPCT 4.6 01/08/2019 BASOPCT 0.6 01/08/2019 MONOSABS 0.8 01/08/2019 LYMPHSABS 2.0 01/08/2019 EOSABS 0.1 01/08/2019 BASOSABS 0.1 01/08/2019 CMP: Lab Results Component Value Date NA 136 01/08/2019 K 4.5 01/08/2019 CL 103 01/08/2019 CO2 27 01/08/2019 BUN 16 01/08/2019 CREATININE 0.97 01/08/2019 GLUCOSE 98 01/08/2019 PROT 5.3 01/08/2019 LABALBU 2.6 01/08/2019 CALCIUM 8.2 01/08/2019 BILITOT 0.2 01/08/2019 ALKPHOS 153 01/08/2019 AST 23 01/08/2019 ALT 26 01/08/2019 Blood Culture: No components found for: CBLOOD, [id number] blood-neg Wound Culture: 01/05 Rt arm tissue: MRSA crp 88.2 (255.1) procal 0.10 Lines: PIV site ok Radiography/Echo/Other: reviewed Antimicrobials, Start/End Dates: Linezolid#2, pip/tazo#2. S/p Prema#1, vanco#1, clinda#1 Impression: 1. Necrotizing fascitis, right arm, s/p I&D x2. MRSA infection. 2. IVDU. Check HIV Ab. 3. Tobacco abuse. Cessation discussed. Plan: Pt sick due to acute necrotizing soft tissue infection in right arm. S/p I&D x2. Afebrile. Cx +MRSA. Blood cx -neg so far. D/C pip/tazo. Continue linezolid for 12 more days. Cessation of tobacco emphasized, 5 minutes spent. Will follow. Nisreen Masters MD * Sabiha La RN - 01/08/2019 2:11 PM EST Wound vac and dressing changed with wound care nurse. Patient did not tolerate well, was in a lot of pain and screaming out, crying though process. Patient very tearful and concerned about this painful process occurring 3x a week and does not know how she will handle it without additional pain medication. Will speak with CM regarding patient options for home or facility care * Ivonne Grider, , RD, LD - 01/08/2019 1:46 PM EST Nutrition Assessment Type and Reason for Visit: Initial Nutrition Recommendations: 1. Continue current General diet. 2. Per MNT protocol, initiate ONS Ensure Enlive once daily to provide 350 kcals and 20g protein d/tincreased nutrient needs. Monitor intakes and labs for need to modify. -> Pt may benefit from MVI/VIt C supplementation to promote skin integrity/wound healing. 3. Please document % meal intakes under I/O Flowsheet. 4. Monitor intakes, wt trends, labs, healing, and fluid balance. 5. RD to follow and monitor. Nutrition Assessment: Pt hx IVDU, Hep C; admitted w/ nectrotizing fascitis. Pt s/p I&D x3 01/05, 01/06, 01/07 w/ wound vac placement. Declined entry upon RD assessment d/t pt care. No documentation of PO intake at this time. Malnutrition Assessment: Malnutrition Status: Insufficient data Nutrition Risk Level: High Nutrient Needs: Estimated Daily Total Kcal: 8655-0137 Estimated Daily Protein (g): 59-77 Estimated Daily Total Fluid (ml/day): 3570-1927 Nutrition Diagnosis: Problem: Increased nutrient needs Etiology: related to Acute injury/trauma ? Signs and symptoms: as evidenced by Presence of wounds Objective Information: Nutrition-Focused Physical Findings: +I&O, +BS. +2 edema LUE, +1 edema RUE. Santana 20. Wound Type: Surgical Wound Current Nutrition Therapies: Oral Diet Orders: General Oral Diet intake: Unable to assess Oral Nutrition Supplement (ONS) Orders: None ONS intake: (none) Anthropometric Measures: Ht: 5' 6 (167.6 cm) Admission Body Wt: 175 lb (79.4 kg)(no method) Usual Body Wt: 175 lb (79.4 kg) [place] Body Wt: 130 lb (59 kg), % [place] Body 135% BMI Classification: BMI 25.0 - 29.9 Overweight Nutrition Interventions: Continue current diet, Start ONS Continued Inpatient Monitoring Nutrition Evaluation: Evaluation: Goals set Goals: Pt to consume >75% of meals and ONS Monitoring: Meal Intake, Supplement Intake, Diet Tolerance, Skin Integrity, Wound Healing, I&O,Weight, Pertinent Labs Contact Number: [phone] * Cass Sánchez, JADA - HAND PLUG SHAPER - 01/08/2019 11:31 AM EST Surgery Post Op Progress Note PATIENT NAME: Deidra De La Cruz TODAY'S DATE: 01/08/2019 SUBJECTIVE: Patient sitting up in bed. Denies N/V. Pain controlled. On TRAP PULLER. Wound vac to right arm/axilla with poor seal. Pain controlled Yes Other Complaints No Flatus/BM/or Ostomy function Yes OBJECTIVE: VITALS: BP 101/62 Pulse 68 Temp 96.7 F (35.9 C) (Temporal) Resp 14 Ht 5' 6 (1.676 m) Wt 175 lb (79.4 kg) SpO2 100% BMI 28.25 kg/m INTAKE/OUTPUT: I/O last 3 completed shifts: In: 200 [I.V.:200] Out: - I/O this shift: In: 10 [I.V.:10] Out: - CONSTITUTIONAL: awake and alert ABDOMEN: soft INCISION: clean, dry. Wound vac with poor seal. Data: CBC: Recent Labs 01/06/1944601/07/19 0528 01/08/19 0318 WBC 10.5 12.3* 17.1* HGB 11.8 8.0* 8.3* HCT 34.7* 23.4* 24.7* PLT 254 360 525* BMP: Recent Labs 01/06/1944601/07/19 0528 01/08/19 031 NA 134* 134* 136 K 4.8 4.3 4.5 CL 102 102 103 CO2 28 29 27 BUN 14 17 16 CREATININE 0.55 0.65 0.97 GLUCOSE 113* 77 98 Hepatic: Recent Labs 01/05/19 1158 01/07/19 0528 01/08/19 0318 AST 23 15 23 ALT 33 29 26 BILITOT 0.7 0.2 0.2 ALKPHOS 290* 141* 153* ASSESSMENT AND PLAN: Ms. De La Cruz is a 48yo F presenting with Right upper arm necrotizing soft tissue infection POD 3 debridement of skin/subcutaneous tissue. Simple I&D left wrist abscess - pain improved but right upper extremity paper machine backtender - Wound Vac applied to right extremity. Poor seal. Wound care consulted for reapplying wound vac. - leukocytosis likely from recent surgery - continue IV antibiotics - infectious disease on consult - prn pain/nausea medications - hx of iv drug abuse, on methadone, addiction services consulted for management - activity as tolerated - disposition: Wound vac placement will need to go with wound vac. Change dressing daily to wrist. Cass Sánchez APRN - HAND PLUG SHAPER Associated attestation - Dimitry Barba MD - 01/08/2019 3:43 PM EST [facility] - [facility] Surgery Patient Name: Deidra De La Cruz Date: 01/08/19 Patient seen and examined. Wound vac changed today by wound care team and patient had difficulty with pain. Otherwise tolerating diet, ambulating and voiding. CBC: Recent Labs 01/06/19 0447 01/07/19 0528 01/08/19 0318 WBC 10.5 12.3* 17.1* HGB 11.8 8.0* 8.3* HCT 34.7* 23.4* 24.7* PLT 254 360 525* BMP: Recent Labs 01/06/19 0447 01/07/19 0528 01/08/19 0318 NA 134* 134* 136 K 4.8 4.3 4.5 CL 102 102 103 CO2 28 29 27 BUN 14 17 16 CREATININE 0.55 0.65 0.97 GLUCOSE 113* 77 98 Hepatic: Recent Labs 01/07/19 0528 01/08/19 0318 ALKPHOS 141* 153* ALT 29 26 AST 15 23 PROT 4.9* 5.3* BILITOT 0.2 0.2 LABALBU 2.4* 2.6* RUE: Gross motor and sensation intact, palpable radial pulse, RUE dressing clean, dry and intact Abdomen: Soft, nontender, nondistended. Plan: 48 yo F with necrotizing skin and soft tissue infection of the RUE Continue wound vac and wound care management Methadone use with recent relapse- ADM recommendations appreciated, morphine TRAP PULLER for acute post operative pain, no further operative debridement planned, will transition to PO pain meds Necrotizing SSI- blood cultures pending, intra operative cultures obtained yesterday, continue broad spectrum antibiotics, ID following Large wound with tissue defect- will consult wound care after VAC placement today. Discussed with PRS, will have outpatient follow up for wound grafting, no plans for inpatient PRS intervention Dispo: patient with difficult to manage wound, social work looking into options, dispo planning ongoing I personally supervised my NOISE ABATEMENT ENGINEER in the evaluation and management of Deidra De La Cruz in the developmentof a treatment plan for this patient. I personally interviewed the patient and performed an individual physical examination. In addition, I discussed the patient's condition and treatment options with them. I have also reviewed and agree with the past medical, family and social history and care plan unless otherwise noted. All of the patient's questions were answered. Greater than 51% of the 15 minute total care time including chart review, care coordination and face to face encounter was spent discussing/counseling the patient regarding the care plan for this patient. The patient was seen and examined independently and relevant data reviewed by myself. A full chart review was performed. Dimitry Barba MD General Surgery Pager #[phone] Perfect Serve: Dimitry Barba 3:40 PM 01/08/2019 * Joel Escobedo RN - 01/08/2019 12:05 AM EST Wound vac kept shutting off and showing that there is a leak, the dressing was reinforced and the would vac kept shutting off. I paged Dr. Mendenhall and he stated to leave the dressing on and would carecan see it tomorrow. * Swati Schwartz RN - 01/07/2019 9:09 PM EST The disc on the wound vac dressing fell off per pt when she was in the bathroom. New disc and tubing applied, but still has large seal leak. Dressing won't stay completely sealed at the elbow due to arm movement. * Swati Schwartz RN - 01/07/2019 6:20 PM EST Arrived back from PACU. She is awake and alert. Wound vac has seal leak which I was told in report that surgery is aware and we are to leave it alone. * Evelyn Lomax RN - 01/07/2019 6:00 PM EST Report called to 1E- RAJAN Longoria * Evelyn Lomax RN - 01/07/2019 5:17 PM EST Wound vac alarming- HARMAN Phillips states it has an air leak- leave it alone- it is normal * Adelfo Colorado MD - 01/07/2019 12:07 PM EST PATIENT: DEIDRA DE LA CRUZ MEDICAL RECORD#: [id number] ADMISSION DATE: 01/05/2019 DATE OF EVAL: 01/07/2019 RACE: W SEX: F LOCATION: [address] [place] [address] DATE OF : 1970 AGE: 48 ADMITTING PHYSICIAN: Dimitry Barba MD ATTENDING PHYSICIAN: Dimitry Barba MD DICTATING PHYSICIAN: Adelfo Colorado MD PCP: CHEMICAL DEPENDENCE PROGRESS NOTE HISTORY OF PRESENT ILLNESS: The patient remains on methadone 90 mg daily, along with p.r.n. hydromorphone, continuous morphine. She was in relatively good spirits today. When I questioned her about her intentions, she did make it very clear that she fully intends to follow up with the methadone for continued opiate substitution. She is still experiencing a significant amount of pain, and as noted, she did undergo her second surgery yesterday and is scheduled for a third surgery this afternoon. In meeting with the patient today, she was resting in bed. She was pleasant and cooperative, and in relatively good spirits. PHYSICAL EXAMINATION: Vital signs: Blood pressure 114/82, pulse 70, respiratory rate 18, and temperature 98.1. The patient is not flushed or diaphoretic. No overt tremors. No auditory, tactile, or visual disturbances. PLAN: At this point in time, methadone will be continued. She will follow up with the methadone program when released from the hospital. Continue p.r.n. meds for pain related to surgery. I did spend over 51% total time 26 minutes coordinating care, providing discussion regarding this patient's psychiatric, medical, and chemical dependency history, and discussion of treatment plan. Adelfo Colorado MD DOD:01/07/2019 11:28 A [facility] DOT:01/07/2019 12:07 P Document Number: [id number] Job Number: [id number] cc: Dimitry Barba MD [address] [place] [address] * Adelfo Colorado MD - 01/07/2019 11:30 AM EST CD progress note dictated---#[id number] * Cass Sánchez APRN - HAND PLUG SHAPER - 01/07/2019 9:52 AM EST Surgery Post Op Progress Note PATIENT NAME: Deidra De La Cruz TODAY'S DATE: 01/07/2019 SUBJECTIVE: Pain controlled on TRAP PULLER. NO acute issues overnight. Pain controlled Yes Other Complaints No Flatus/BM/or Ostomy function Yes OBJECTIVE: VITALS: BP 110/78 Pulse 74 Temp 97.8 F (36.6 C) (Temporal) Resp 16 Ht 5' 6 (1.676 m) Wt 175 lb (79.4 kg) SpO2 98% BMI 28.25 kg/m INTAKE/OUTPUT: I/O last 3 completed shifts: In: 350 [P.O.:50; I.V.:300] Out: 10 [Blood:10] No intake/output data recorded. CONSTITUTIONAL: awake and alert ABDOMEN: soft INCISION: clean, dry, some serous drainage from wound. Data: CBC: Recent Labs 01/05/19 1158 01/06/19 0447 01/07/19 0528 WBC 14.8* 10.5 12.3* HGB 11.8 11.8 8.0* HCT 34.7* 34.7* 23.4* PLT 325 254 360 BMP: Recent Labs 01/05/19 1158 01/06/19 0447 01/07/19 0528 NA 132* 134* 134* K 4.0 4.8 4.3 CL 96* 102 102 CO2 28 28 29 BUN 10 14 17 CREATININE 0.57 0.55 0.65 GLUCOSE 105* 113* 77 Hepatic: Recent Labs 01/05/19 1158 01/07/19 0528 AST 23 15 ALT 33 29 BILITOT 0.7 0.2 ALKPHOS 290* 141* ASSESSMENT AND PLAN: Ms. De La Cruz is a 48yo F presenting with Right upper arm necrotizing soft tissue infection POD 2 debridement of skin/subcutaneous tissue - pain improved but right upper extremity paper machine backtender - leukocytosis likely from recent surgery - continue IV antibiotics - infectious disease on consult - prn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 Procedure 06/12/2023 06/11/2024 1 1 Reason Onset Date Comments Refill Request 06/17/2023 Specialty Diagnoses / Procedures Referred By Contac t Referred To Contact Radiology Diagnoses Avascular necrosis of bone of left hip (Multi) Procedures CT hip left wo IV contrast CT hip [place] [address] [address] Department [place] [address] Referral ID Status Reason Start Date Expiration Date Visits Requested Visits Authorized [id number] Authorized Perform Procedure 06/12/2023 06/11/2024 1 1 Reason Onset Date Comments Refill Request 07/16/2023 Reason Onset Date Comments Refill Request 08/15/2023 Reason Onset Date Comments Refill Request 08/29/2023 Reason Onset Date Comments Refill Request 08/30/2023 Reason Onset Date Comments Refill Request 09/14/2023 Reason Onset Date Comments Refill Request 09/15/2023 Reason Onset Date Comments Refill Request 10/08/2023 Reason Onset Date Comments Refill Request 11/02/2023 Reason Onset Date Comments Refill Request 11/07/2023 Reason Comments Received Outside Medical Records [facility] Order for incontinence supplies 11/21/2023 Reason Onset Date Comments Refill Request 11/23/2023 Reason Onset Date Comments Refill Request 12/05/2023 Reason Comments Rx sent to wrong pharmacy Reason Comments Order for wheelchair Reason Comments Results Orders Reason Onset Date Comments Refill Request 01/06/2024 Reason Onset Date Comments Refill Request 01/26/2024 Reason Comments Follow-up Reason Comments Orders millers Specialty Diagnoses / Procedures Referred By Contac t Referred To Contact Radiology Diagnoses Traumatic arthritis of right knee Procedures XR knee right 1-[place] [id number] [address] Department [place] [address] Referral ID Status Reason Start Date Expiration Date Visits Requested Visits Authorized [id number] Authorized Perform Procedure 08/11/2023 08/10/2024 1 1 Reason Onset Date Comments Cancelled Appointment 02/20/2022 Reason Comments Wound Care Lower Leg Wound Reason Comments Follow-up Right lower leg woun d infection. Patient needs clearance for surgery with Dr. Guzman. Reason Comments Follow-up FU: Left hip pain Reason Onset Date Comments Page out 04/17/2022 Reason Onset Date Comments Refill Request 02/03/2024 Reason Onset Date Comments Refill Request 03/03/2024 Reason Comments Home Health Care Nurse Needed pati Reason Onset Date Comments Refill Request 03/22/2024 Reason Onset Date Comments Refill Request 04/01/2024 Reason Comments Received Outside Medical Records [facility] ED Reason Onset Date Comments Refill Request 04/30/2024 Reason Comments Wound Check Specialty Diagnoses / Procedures Referred By Yumiko lynn Referred To Contact Diagnoses Wound dehiscence post op cellulitis Procedures n/a Anitha De La O, MORTEZA [id number] [address] Department of Surgery-[place] [address] Phone: tel: fax: [facility] [id number] [place] [address] Phone: tel: fax: Referral ID Status Reason Start Date Expiration Date Visits Re quested Visits Authorized [id number] 1 1 Reason Onset Date Comments Refill Request 05/31/2024 Reason Onset Date Comments Refill Request 06/16/2024 Reason Onset Date Comments Refill Request 07/02/2024 Reason Onset Date Comments Refill Request 08/04/2024 INFORMATION SOURCE (unrecogn ized section and content) DATE CREATED AUTHOR 08/05/2020 [employer] ([place]) DATE CREATED AUTHOR AUTHOR'S ORGANIZ ATION 03/28/2021 [employer] DATE CREATED AUTHOR AUTHOR'S ORGANIZ ATION 11/18/2021 [employer] [facility] DATE CREATED AUTHOR AUTHOR'S ORGANIZ ATION 12/14/2021 [facility] DATE CREATED AUTHOR AUTHOR'S ORGANIZ ATION 12/22/2021 [facility] DATE CREATED AUTHOR AUTHOR'S ORGANIZ ATION 05/25/2022 [facility] DATE CREATED AUTHOR AUTHOR'S ORGANIZ ATION 12/19/2023 [facility] DATE CREATED AUTHOR AUTHOR'S ORGANIZ ATION 12/19/2023 [facility] DATE CREATED AUTHOR AUTHOR'S ORGANIZ ATION 03/29/2024 [facility] DATE CREATED AUTHOR AUTHOR'S ORGANIZ ATION 05/01/2024 [facility] DATE CREATED AUTHOR AUTHOR'S ORGANIZ ATION 05/24/2024 [facility] DATE CREATED AUTHOR AUTHOR'S ORGANIZ ATION 06/04/2024 [facility] DATE CREATED AUTHOR AUTHOR'S ORGANIZ ATION 06/10/[address] [facility] DATE CREATED AUTHOR AUTHOR'S ORGANIZ ATION 06/22/2024 [facility] DATE CREATED AUTHOR AUTHOR'S ORGANIZ ATION 06/27/2024 [facility] DATE CREATED AUTHOR AUTHOR'S ORGANIZ ATION 07/21/2024 [facility] Ambulatory Ordered Prescriptions (unrec ognized section and content) Prescription Sig Dispensed Refills Start Date End Da enoxaparin (LOVENOX) 30 MG/0.3ML injection Inject 0.3 mLs into the skin 2 times daily 18 mL 0 12/29/2020 01/28/2021 clonazePAM (KLONOPIN) 0.5 MG tabletIndications:Anxie ty Take 1 tablet by mouth 2 times daily for 30 days. 60 tablet 3 12/29/2020 01/28/2021 gabapentin (NEURONTIN) 300 MG capsule Take 2 capsules by mouth 3 times daily for 30 days. 90 capsule 3 12/29/2020 01/28/2021 cloNIDine (CATAPRES) 0.1 MG tablet 1 tablet by Per G Tube route 3 times daily 60 tablet 3 12/29/2020 senna (SENOKOT) 8.6 MG tablet Take 2 tablets by mouth 2 times daily 120 tablet 0 12/29/2020 01/28/2021 famotidine (PEPCID) 20 MG tablet Take 1 tablet by mouth 2 times daily 60 tablet 3 12/29/2020 methocarbamol (ROBAXIN) 500 MG tablet Take 2 tablets by mouth 4 times daily for 10 days 80 tablet 0 12/29/2020 01/08/2021 Prescription Sig Dispensed Refills Start Date End Da te clonazePAM (KLONOPIN) 0.5 MG tabletIndications:Anxiet y Take 1 tablet by mouth 2 times daily for 30 days. 60 tablet 0 04/30/2021 05/30/2021 mirtazapine (REMERON) 7.5 MG tablet Take 1 tablet by mouth nightly 30 tablet 3 04/30/2021 lidocaine 4 % external patch Place 2 patches onto the skin daily 30 patch 0 05/01/2021 oxyCODONE (ROXICODONE) 5 MG immediate release tabletIndications:Open wound knee/leg with tendon involvment, right, sequela Take 1 tablet by mouth every 4 hours as needed for Pain for up to 3 days. 12 tablet 0 04/30/2021 05/03/2021 methocarbamol (ROBAXIN) 500 MG tablet Take 2 tablets by mouth 4 times daily for 10 days 80 tablet 0 04/30/2021 05/10/2021 Scheduled Active and Recently Administ ered Medications (unrecognized section and content) Medication Order 12/27/2020 12/28/2020 12/29/2020 0.9 % sodium chloride bolus (COMPLETED) 500 mL (5.64 mL/kg), IntraVENous, at 250 mL/hr, Administer over 2 Hours, ONCE, On Lexie 12/28/20 at 0700, For 1 dose 0913 (New Bag - Provider: Kenya Perez RN)1053 (Stopped - Provider: Kenya Perez RN) acetaminophen (TYLENOL) tablet 1,000 mg 1,000 mg, Oral, EVERY 8 HOURS, First dose on 12/25/20 at 1000, Maximum dose of acetaminophen is 4000 mg from all sources in 24 hours. 0206 (Given - Provider: Kathi Graff RN)1018 (Given - Provider: Kenya Perez RN)1659 (Given - Provider: Kenya Perez RN) 0230 (Given - Provider: Faustino Fisher RN)0853 (Given - Provider: Kenya Perez RN)1704 (Given - Provider: Kenya Perez RN) 0137 (Given - Provider: Faustino Fisher RN)0920 (Given - Provider: Ginny Delarosa, RN)1800 (Due) amLODIPine (NORVASC) tablet 10 mg (CANCELED) 10 mg, Per G Tube, DAILY, First dose on Fri12/21/20 at 1300 0816 (Given - Provider: Kenya Perez RN) 0620 (Held by provider - Provider: Remy Lei MD - Reason: Other)0900 (Automatically Held - Provider: Remy Lei MD) 0900 (Automatically Held - Provider: Remy Lei MD)1152 (Unheld by provider - Provider: Senia Mayo MD) bacitracin ointment Topical, 2 TIMES DAILY, First dose on Fri12/25/20 at 2100, Apply to all incisions and abrasions. 0816 (Given - Provider: Kenya Perez RN)2023 (Given - Provider: Faustino Fisher RN) 0852 (Given - Provider: Kenya Perez RN)212 (Given - Provider: Faustino Fisher RN) 0920 (Given - Provider: Ginny Delarosa, RAJAN)2100 (Due) bisacodyl (DULCOLAX) suppository 10 mg (COMPLETED) 10 mg, Rectal, ONCE, On Fri12/28/20 at 2100, For 1 dose 2125 (Given - Provider: Faustino Fisher RN) chlorhexidine (PERIDEX) 0.12 % solution 15 mL 15 mL, Mouth/Throat, 4 TIMES DAILY, First dose on Fri12/25/20 at 2100, Rinse and spit. Do not swallow. 0816 (Given - Provider: Kenya Perez RN)1257 (Given - Provider: Andre Gu III, RN)1659 (Given - Provider: Kenya Perez RN)2023 (Given - Provider: Faustino Fihser RN) 0854 (Given - Provider: Kenya Perez RN)1256 (Given - Provider: Blanca Maurer RN)1704 (Given - Provider: Kenya Perez RN)212 (Given - Provider: Faustino Fisher, RAJAN) 0907 (Given - Provider: Ginny Delarosa, RAJAN)1237 (Given - Provider: Ginny Delarosa RN)1700 (Due)2100 (Due) clonazePAM (KLONOPIN) tablet 0.5 mg 0.5 mg, Oral, 2 TIMES DAILY, First dose on Fri12/27/20 at 1200 1258 (Given - Provider: Andre Gu III, RAJAN)2024 (Given - Provider: Faustino Fisher RN) 0857 (Given - Provider: Kenya Perez RN)212 (Given - Provider: Faustino Fisher, RAJAN) 0921 (Given - Provider: Ginny Delarosa, RAJAN)2100 (Due) cloNIDine (CATAPRES) tablet 0.1 mg 0.1 mg, Per G Tube, 3 TIMES DAILY, First dose (after last modification) on Fri12/28/20 at 0900, Hold for SBP < 110 0852 (Given - Provider: Kenya Perez RN)1255 (Given - Provider: Blanca Maurer RN)212 (Given - Provider: Faustino Fisher, RAJAN) 0920 (Given - Provider: Ginny Delarosa, RAJAN)1237 (Given - Provider: Ginny Delarosa RN)2100 (Due) cloNIDine (CATAPRES) tablet 0.2 mg (CANCELED) 0.2 mg, Per G Tube, 3 TIMES DAILY, First dose (after last modification) on Fri12/26/20 at 1400, Hold for SBP < 110 0816 (Given - Provider: Kenya Perez RN)1258 (Given - Provider: Andre Gu III, RN)2023 (Given - Provider: Faustino Fisher, RAJAN) docusate sodium (COLACE) 150 MG/15ML liquid 100 mg (CANCELED) 100 mg, Oral, 2 TIMES DAILY, First dose on Fri12/24/20 at 1130 0816 (Given - Provider: Kenya Perez RN) dornase alpha (PULMOZYME) nebulizer solution 2.5 mg 2.5 mg, Inhalation, DAILY, First dose on Fri12/26/20 at 1130 1235 (Given - Provider: Steven Perla RCP) 0839 (Given - Provider: Justen Amor RCP) 0847 (Given - Provider: Pato White RCP) enoxaparin (LOVENOX) injection 30 mg 30 mg, SubCUTAneous, 2 TIMES DAILY, First dose on Fri12/23/20 at 0915 0816 (Given - Provider: Kenya Perez RN)2023 (Given - Provider: Faustino Fisher RN) 0853 (Given - Provider: Kenya Perez RN)2125 (Given - Provider: Faustino Fisher RN) 0920 (Given - Provider: Ginny Delarosa, RAJAN)2100 (Due) famotidine (PEPCID) injection 20 mg (CANCELED) 20 mg, IntraVENous, 2 TIMES DAILY, First dose on Fri12/25/20 at 1015, Administer over 2 minutes. 0816 (Given - Provider: Kenya Perez RN) famotidine (PEPCID) tablet 20 mg 20 mg, Oral, 2 TIMES DAILY, First dose on Fri12/27/20 at 1200 1258 (Not Given - Provider: Andre Gu III, RN - Reason: Other - Comment: given iv)2023 (Given - Provider: Faustino Fisher RN) 0852 (Given - Provider: Kenya Perez RN)2125 (Given - Provider: Faustino Fisher RN) 0920 (Given - Provider: Ginny Delarosa, RAJAN)2100 (Due) gabapentin (NEURONTIN) capsule 600 mg 600 mg, Oral, 3 TIMES DAILY, First dose on Fri12/27/20 at 1400 1258 (Given - Provider: Andre Gu III, RN)2023 (Given - Provider: Faustino Fisher RN) 0852 (Given - Provider: Kenya Perez RN)1256 (Given - Provider: Blanca Maurer RN)2125 (Given - Provider: Faustino Fisher RN) 0920 (Given - Provider: Ginny Delarosa, RAJAN)1236 (Given - Provider: Ginny Delarosa RN)2100 (Due) heparin flush 100 UNIT/ML injection 250 Units 250 Units, IntraVENous, EVERY 12 HOURS SCHEDULED (2 times per day), First dose on Fri12/20/20 at 1015, Flush each lumen of PICC not connected to a continuous infusion. 0817 (Given - Provider: Kenya Perez RN)2024 (Given - Provider: Faustino Fisher RN) 0854 (Given - Provider: Kenya Perez RN)212 (Given - Provider: Faustino Fisher RN) 09 (Given - Provider: Ginny Delarosa, RAJAN)2100 (Due) heparin flush 100 UNIT/ML injection 250 Units 250 Units, IntraCATHeter, EVERY 12 HOURS, First dose on Fri12/21/20 at 1245, Each lumen. Do NOT administer to lumens with continuous fluids currently infusing. Line Care. Use 10 mL or larger syringe. 0035 (Not Given - Provider: Kathi Graff RN - Reason: IV Fluid Infusing)1214 (Not Given - Provider: James Lemus RN - Reason: IV Fluid Infusing) 0235 (Given - Provider: Faustino Fisher RN)1237 (Not Given - Provider: Blanca Maurer RN - Reason: Order parameters not met) 0123 (Given - Provider: Faustino Fisher RN)1236 (Given - Provider: Ginny Delarosa, RAJAN) HYDROmorphone (DILAUDID) injection 1 mg (COMPLETED) 1 mg, IntraVENous, ONCE, On Fri12/27/20 at 0830, For 1 dose, If oral and IV narcotics ordered, use oral first and only use IV if oral is ineffective or cannot take oral. Do Not give oral and IV within 1 hour of each other unless specifically ordered. 0812 (Given - Provider: Kenya Perez RN) ipratropium-albuterol (DUONEB) nebulizer solution 1 ampule 1 ampule, Inhalation, EVERY 4 HOURS WHILE AWAKE, First dose on Fri12/19/20 at 1600 0213 (Given - Provider: Jami Paige RCP)0907 (Given - Provider: Pratik Pedroza RCP)1223 (Given - Provider: Steven Perla RCP)1659 (Given - Provider: Pratik Pedroza RCP)212 (Given - Provider: Fany Martinez RCP) 0820 (Given - Provider: Justen Amor DEPARTMENT MANAGER)1335 (Given - Provider: Justen Amor DEPARTMENT MANAGER)1615 (Given - Provider: Justen Amor DEPARTMENT MANAGER)2007 (Given - Provider: Darian Forrester [facility]) 0840 (Given - Provider: Pato White [facility])1109 (Given - Provider: Pato White DEPARTMENT MANAGER)1551 (Given - Provider: Pato White DEPARTMENT MANAGER)1999 (Due) ketamine (KETALAR) oral syringe 10 mg (CANCELED) 10 mg, Oral, EVERY 6 HOURS, First dose on Fri12/26/20 at 1130, Administer via g tube 0038 (Given - Provider: Kathi Graff RN)0816 (Given - Provider: Kenya Perez RN)1257 (Given - Provider: Andre Gu III, RN)1836 (Given - Provider: Kenya Perez RN) 0227 (Given - Provider: Faustino Fisher RN)0853 (Given - Provider: Kenya Perez RN)1255 (Given - Provider: Blanca Maurer, RAJAN)2125 (Given - Provider: Faustino Fisher, RAJAN) 0137 (Given - Provider: Faustino Fisher RN)0803 (Given - Provider: Blanca Maurer, RAJAN) lactated ringers bolus (COMPLETED) 1,000 mL, IntraVENous, at 1,000 mL/hr, Administer over 1 Hours, ONCE, On Fri12/28/20 at 1030, For 1 dose, [address] scan[address] 1816 (New Bag - Provider: Kenya Perez RN)1951 (Stopped - Provider: Kenya Perez RN) lidocaine 1 % injection 5 mL 5 mL, IntraDERmal, ONCE, On Fri12/20/20 at 1015, For 1 dose lubrifresh P.M. (artificial tears) ophthalmic ointment Both Eyes, EVERY 4 HOURS SCHEDULED (6 times per day), First dose on Fri12/20/20 at 0400 0039 (Given - Provider: Kathi Graff RN)0430 (Given - Provider: Kathi Graff RN)0816 (Given - Provider: Kenya Perez RN)1257 (Given - Provider: Andre Gu III, RN)1625 (Given - Provider: Kenya Perez RN)2025 (Given - Provider: Faustino Fisher RN) 0002 (Given - Provider: Faustino Fisher RN)041 (Given - Provider: Faustino Fisher RN)0852 (Given - Provider: Kenya Perez RN)1246 (Given - Provider: Blanca Maurer RN)170 (Given - Provider: Kenya Perez RN)212 (Given - Provider: Faustino Fisher RN) 0123 (Not Given - Provider: Faustino Fisher RN - Reason: Other - Comment: pt asleep)0507 (Given - Provider: Faustino Fisher RN)0920 (Given - Provider: Ginny Delarosa, RAJAN)1222 (Not Given - Provider: Ginny Delarosa RN - Reason: Other)1624 (Not Given - Provider: Ginny Delarosa RN - Reason: Other)1999 (Due) magnesium oxide (MAG-OX) tablet 400 mg (COMPLETED) 400 mg, Oral, DAILY, First dose on Fri12/27/20 at 1200, For 1 dose 1320 (Given - Provider: Kenya Perez RN) methadone (DOLOPHINE) 10 MG/ML solution 85 mg 85 mg, Oral, NIGHTLY, First dose on Fri12/20/20 at 2100 2024 (Given - Provider: Faustino Fisher RN) 2126 (Given - Provider: Faustino Fisher RN) 2099 (Due) methocarbamol (ROBAXIN) tablet 1,000 mg 1,000 mg, Oral, 4 TIMES DAILY, First dose on Fri12/25/20 at 1300 0030 (Given - Provider: Kathi Graff RN)0817 (Given - Provider: Kenya Perez RN)1258 (Given - Provider: Andre Gu III, RN)1659 (Given - Provider: Kenya Perez RN)202 (Given - Provider: Faustino Fisher RN) 0852 (Given - Provider: Kenya Perez RN)1246 (Given - Provider: Blanca Maurer, RN)1704 (Given - Provider: Kenya Perez RN)2126 (Given - Provider: Faustino Fisher RN) 0803 (Given - Provider: Blanca Maurer, RN)1236 (Given - Provider: Ginny Delarosa, RN)1700 (Due)2100 (Due) piperacillin-tazobactam (ZOSYN) 4,500 mg in sodium chloride 0.9 % 100 mL IVPB IntraVENous, Administer over 3 Hours, EVERY 6 HOURS, First dose on Fri12/26/20 at 0900, For 18 doses 0038 (New Bag - Provider: Kathi Graff RN)0338 (Stopped - Provider: Kathi Graff RN)0818 (New Bag - Provider: Kenya Perez RN)1050 (Stopped - Provider: Kenya Perez RN)1257 (New Bag - Provider: Andre Gu III, RN)1521 (Stopped - Provider: Kenya Perez RN)1833 (New Bag - Provider: Kenya Perez RN)2158 (Stopped - Provider: Faustino Fisher RN) 0228 (New Bag - Provider: Faustino Fisher RN)0528 (Stopped - Provider: Faustino Fisher RN)1023 (New Bag - Provider: Kenya Perez RN)1332 (Stopped - Provider: Kenya Perez RN)1441 (New Bag - Provider: Kenya Perez RN)1701 (Stopped - Provider: Kenya Perez RN)2115 (New Bag - Provider: Faustino Fisher RN) 0021 (Stopped - Provider: Faustino Fisher RN)0137 (New Bag - Provider: Faustino Fisher RN)0508 (Stopped - Provider: Faustino Fisher RN)0809 (New Bag - Provider: Blanca Maurer, RAJAN)1109 (Stopped - Provider: Ginny Delarosa, RN)1237 (New Bag - Provider: Ginny Delarosa, RN)1537 (Stopped - Provider: Ginny Delarosa, RN)1930 (Due - Provider: Karishma Washburn [facility]) potassium chloride (KLOR-CON) packet 40 mEq (COMPLETED) 40 mEq, Per G Tube, ONCE, On Fri12/27/20 at 0645, For 1 dose, Dilute with at least 4 ounces of cold water. May further dilute if GI adverse effects occur. 0816 (Given - Provider: Kenya Perez RN) potassium chloride (KLOR-CON) packet 40 mEq (COMPLETED) 40 mEq, Oral, ONCE, On Fri12/28/20 at 0630, For 1 dose, Dilute with at least 4 ounces of cold water. May further dilute if GI adverse effects occur. 0853 (Given - Provider: Kenya Perez RN) potassium chloride (KLOR-CON) packet 40 mEq (COMPLETED) 40 mEq, Oral, ONCE, On Fri12/29/20 at 0700, For 1 dose, Dilute with at least 4 ounces of cold water. May further dilute if GI adverse effects occur. 0803 (Given - Provider: Blanca Maurer RN) potassium phosphate 10 mmol in sodium chloride 0.9 % 250 mL IVPB (COMPLETED) 10 mmol, IntraVENous, at 166.7 mL/hr, Administer over 90 Minutes, ONCE, On Fri12/28/20 at 0800, For 1 dose 0856 (New Bag - Provider: Kenya Perez RN)1024 (Stopped - Provider: Kenya Perez RN) senna (SENOKOT) 8.8 MG/5ML syrup 17.6 mg (CANCELED) 17.6 mg (10 mL), Per G Tube, 2 TIMES DAILY, First dose on Fri12/24/20 at 2100 0802 (Not Given - Provider: Kenya Perez RN - Reason: Other - Comment: patient with multiple episodes of exsplosive diarrhea)2023 (Given - Provider: Faustino Fisher RN) 0855 (Not Given - Provider: Kenya Perez RN - Reason: Order parameters not met - Comment: Patient with 3 large liquid stools) senna (SENOKOT) tablet 17.2 mg 17.2 mg (2 tablet), Oral, 2 TIMES DAILY, First dose on Fri12/29/20 at 1215 1236 (Given - Provider: Ginny Delarosa RN)2100 (Due) sodium chloride (Inhalant) 3 % nebulizer solution 4 mL 4 mL, Nebulization, EVERY 8 HOURS, First dose on Fri12/26/20 at 1130 0213 (Given - Provider: Jami Paige [facility])1229 (Given - Provider: Steven Perla [facility])2127 (Given - Provider: Fany Martinez [facility]) 0456 (Given - Provider: Fany Martinez [facility])0830 (Given - Provider: Justen Amor [facility])1625 (Given - Provider: Justen Amor [facility]) 0330 (Given - Provider: Darian Forrester [facility])0844 (Given - Provider: Pato White [facility])1552 (Given - Provider: Pato White [facility]) sodium chloride flush 0.9 % injection 10 mL 10 mL, IntraVENous, EVERY 12 HOURS SCHEDULED (2 times per day), First dose on Fri12/20/20 at 1015, Flush each lumen of PICC not connected to a continuous infusion. 1050 (Not Given - Provider: Kenya Perez RN - Reason: IV Fluid Infusing)2012 (Not Given - Provider: Faustino Fisher RN - Reason: IV Fluid Infusing) 0854 (Not Given - Provider: Kenya Perez RN - Reason: IV Fluid Infusing)2008 (Not Given - Provider: Faustino Fisher RN - Reason: IV Fluid Infusing) 0954 (Not Given - Provider: Ginny Delarosa RN - Reason: IV Fluid Infusing)2100 (Due) sodium chloride flush 0.9 % injection 10 mL 10 mL, IntraVENous, EVERY 12 HOURS SCHEDULED (2 times per day), First dose on Fri12/20/20 at 1015, Flush each lumen of PICC not connected to a continuous infusion. 0826 (Given - Provider: Kenya Perez RN)2013 (Not Given - Provider: Faustino Fisher RN - Reason: IV Fluid Infusing) 0854 (Given - Provider: Kenya Perez RN)2008 (Not Given - Provider: Faustino Fisher RN - Reason: IV Fluid Infusing) 0954 (Not Given - Provider: Ginny Lamar, RN - Reason: IV Fluid Infusing)2100 (Due) sodium chloride flush 0.9 % injection 10 mL 10 mL, IntraCATHeter, EVERY 12 HOURS, First dose on Lexie 12/21/20 at 1245, Administer to each lumen, regardless of whether or not fluids are infusing. Line Care. Use 10 mL or larger syringe. 0035 (Not Given - Provider: Kathi Graff RN - Reason: IV Fluid Infusing)1252 (Not Given - Provider: Andre Gu III RN - Reason: IV Fluid Infusing)2303 (Not Given - Provider: Faustino Fisher RN - Reason: IV Fluid Infusing) 1240 (Not Given - Provider: Blanca Maurer RN - Reason: IV Fluid Infusing)2356 (Not Given - Provider: Faustino Fisher RN - Reason: IV Fluid Infusing) 1336 (Not Given - Provider: Ginny Delarosa RN - Reason: IV Fluid Infusing) sodium chloride flush 0.9 % injection 5-40 mL 5-40 mL, IntraVENous, EVERY 12 HOURS SCHEDULED (2 times per day), First dose on Fri12/18/20 at 2100, For Line Patency: Peripheral IV = 5 mL; Midline or Central Line = 10 mL/lumen. If following IV push medication, administer flush at same rate as the IV push. Flush volume is determined by type of infusion therapy being given. For non-viscous solutions use: Peripheral IV = 5 mL Midline or Central Line = 10 mL/lumen For viscous solutions (i.e. blood components, parenteral nutrition, contrast media, or after obtaining blood sample) use: Peripheral IV = 10 mL Midline or Central Line = 20 mL/lumen 0827 (Not Given - Provider: Kenya Perez RN - Reason: IV Fluid Infusing)2012 (Not Given - Provider: Faustino Fisher, RAJAN - Reason: IV Fluid Infusing) 0910 (Not Given - Provider: Kenya Perez RN - Reason: IV Fluid Infusing)211 (Not Given - Provider: Faustino Fisher, RAJAN - Reason: IV Fluid Infusing) 0954 (Not Given - Provider: Ginny Delarosa RN - Reason: IV Fluid Infusing)2100 (Due) xeroform petrolat gauze 1X8 external pads 1 each 1 each, Topical, ONCE, On 12/18/20 at 1345, For 1 dose, Apply to traction pins Continuous Medication Order 12/27/2020 12/28/2020 12/29/2020 0.9 % sodium chloride infusion (CANCELED) IntraVENous, at 75 mL/hr, CONTINUOUS, Starting on 12/24/20 at 1130 0911 (New Bag - Provider: Kenya Perez RN) 1222 (Stopped - Provider: Ginny Delarosa RN) PRN Medication Order 12/27/2020 12/28/2020 12/29/2020 0.9 % sodium chloride infusion 25 mL, IntraVENous, at 100 mL/hr, PRN, If patient receiving piggyback infusions without ordered maintenance IV fluids or with frequent/long duration piggyback infusions, Starting on 12/18/20 at 1523, Administer at the same rate as the piggyback being infused. 0.9 % sodium chloride infusion IntraVENous, at 240 mL/hr, Administer over 10 Minutes, PRN, blood administration, Starting on Fri12/20/20 at 0940, For 1 dose, For use in priming line prior to transfusion (prime via gravity) and flush line post transfusion ONLY. Discontinue once line has been cleared of remaining blood product. 0.9 % sodium chloride infusion IntraVENous, at 240 mL/hr, Administer over 10 Minutes, PRN, blood administration, Starting on Fri12/20/20 at 1810, For 1 dose, For use in priming line prior to transfusion (prime via gravity) and flush line post transfusion ONLY. Discontinue once line has been cleared of remaining blood product. 0.9 % sodium chloride infusion IntraVENous, at 240 mL/hr, Administer over 10 Minutes, PRN, blood administration, Starting on 12/23/20 at 0637, For 1 dose, For use in priming line prior to transfusion (prime via gravity) and flush line post transfusion ONLY. Discontinue once line has been cleared of remaining blood product. bisacodyl (DULCOLAX) suppository 10 mg 10 mg, Rectal, DAILY PRN, Constipation, Starting on Lexie 12/28/20 at 2003 heparin flush 100 UNIT/ML injection 250 Units 250 Units, IntraVENous, PRN, Line Care, Starting on Fri12/20/20 at 0946, Flush each lumen of PICC. heparin flush 100 UNIT/ML injection 250 Units 250 Units, IntraCATHeter, PRN, Line Care, after blood draws and after infusion, Starting on Fri12/21/20 at 1222, Do NOT administer to lumens with continuous fluids currently infusing. Line Care. Use 10 mL or larger syringe. hydrALAZINE (APRESOLINE) injection 20 mg 20 mg, IntraVENous, EVERY 6 HOURS PRN, High Blood Pressure, 2nd line for SBP>160. Hold for HR>95., Starting on Fri12/21/20 at 0937 0458 (Given - Provider: Kathi Graff RN) labetalol (NORMODYNE;TRANDATE) injection 20 mg 20 mg, IntraVENous, EVERY 4 HOURS PRN, High Blood Pressure, First line for SBP > 160. Hold for HR < 65, Starting on Fri12/21/20 at 0932 0214 (Given - Provider: Kathi Graff RN - Comment: hr 78 bp 161/80)0725 (Given - Provider: Kathi Graff RN - Comment: 174/74) ondansetron (ZOFRAN) injection 4 mg 4 mg, IntraVENous, EVERY 6 HOURS PRN, Nausea, Vomiting, Starting on Fri12/18/20 at 1523, Administer if oral route cannot be used. oxyCODONE (ROXICODONE) immediate release tablet 15 mg 15 mg, Oral, EVERY 4 HOURS PRN, Pain Moderate (4-6), Pain Severe (7-10), Starting on Fri12/26/20 at 1055 0215 (Given - Provider: Kathi Graff RN)1018 (Given - Provider: Kenya Perez RN)2025 (Given - Provider: Faustino Fisher RN) 1441 (Given - Provider: Kenya Perez RN) 0803 (Given - Provider: Blanca Maurer, RAJAN)1236 (Given - Provider: Ginny Delarosa RN) sodium chloride flush 0.9 % injection 10 mL 10 mL, IntraVENous, PRN, Line Care, Starting on Fri12/20/20 at 0946, Flush each lumen of PICC. sodium chloride flush 0.9 % injection 10 mL 10 mL, IntraCATHeter, PRN, Line Care, before blood draws, before and after infusion or medication administration, Starting on Lexie 12/21/20 at 1222, Use 10 mL or larger syringe. sodium chloride flush 0.9 % injection 5-40 mL 5-40 mL, IntraVENous, PRN, Line Care, After every IV line use, Starting on 12/18/20 at 1523, For Line Patency: Peripheral IV = 5 mL; Midline or Central Line = 10 mL/lumen. If following IV push medication, administer flush at same rate as the IV push. Flush volume is determined by type of infusion therapy being given. For non-viscous solutions use: Peripheral IV = 5 mL Midline or Central Line = 10 mL/lumen For viscous solutions (i.e. blood components, parenteral nutrition, contrast media, or after obtaining blood sample) use: Peripheral IV = 10 mL Midline or Central Line = 20 mL/lumen Scheduled Medication Order 04/28/2021 04/29/2021 04/30/2021 acetaminophen (TYLENOL) tablet 650 mg 650 mg, Oral, EVERY 8 HOURS SCHEDULED (3 times per day), First dose (after last modification) on 04/21/21 at 2200, Maximum dose of acetaminophen is 4000 mg from all sources in 24 hours. 0514 (Given - Provider: Andre Quan RN)1306 (Given - Provider: Reddy Kelley RN)2145 (Given - Provider: Clarence Walden RN) 0541 (Given - Provider: Clarence Walden RN)1449 (Given - Provider: Lashell Flores RN)2128 (Given - Provider: Clarence Walden RN) 0553 (Given - Provider: Clarence Walden RN)1355 (Given - Provider: Gianni Yuan RN)2200 (Due) acidophilus probiotic capsule 1 capsule 1 capsule, Oral, DAILY WITH BREAKFAST, First dose on Fri04/18/21 at 0800 0753 (Given - Provider: Reddy Kelley RN) 0912 (Given - Provider: Lashell Flores RN) 0933 (Given - Provider: Gianni Yuan, RAJAN) amLODIPine (NORVASC) tablet 5 mg 5 mg, Oral, DAILY, First dose on Fri04/18/21 at 0900 0752 (Given - Provider: Reddy Kelley RN) 0922 (Given - Provider: Lashell Flores RN) 0932 (Given - Provider: Gianni Yuan, RAJAN) aspirin EC tablet 81 mg 81 mg, Oral, DAILY, First dose on Fri04/18/21 at 0900, Do not crush or break. 0752 (Given - Provider: Reddy Kelley RN) 0915 (Given - Provider: Lashell Flores, RAJAN) 0932 (Given - Provider: Gianni Yuan, RAJAN) bacitracin ointment Topical, 2 times daily, First dose on Fri04/18/21 at 0900, Apply to skin 075 (Given - Provider: Reddy Kelley RN - Comment: legs)2152 (Given - Provider: Clarence Walden, RAJAN) 917 (Not Given - Provider: Lashell Flores RN - Reason: Patient/family refused)2130 (Given - Provider: Clarence Walden RN) 0934 (Given - Provider: Gianni Yuan, RAJAN)2100 (Due) buPROPion (WELLBUTRIN SR) extended release tablet 150 mg 150 mg, Oral, 2 TIMES DAILY, First dose on Fri04/18/21 at 0900, Do not crush or break. 0753 (Given - Provider: Reddy Kelley RN)2143 (Given - Provider: Clarence Walden RN) 09 (Given - Provider: Lashell Flores RN)2126 (Given - Provider: Clarence Walden RN) 0933 (Given - Provider: Gianni Yuan, RAJAN)2100 (Due) cefdinir (OMNICEF) capsule 300 mg 300 mg, Oral, EVERY 12 HOURS SCHEDULED (2 times per day), First dose on Fri04/18/21 at 0900, For 14 days 0753 (Given - Provider: Reddy Kelley RN)214 (Given - Provider: Clarence Walden RN) 09 (Given - Provider: Lashell Flores RN)2126 (Given - Provider: Clarence Walden RN) 0933 (Given - Provider: Gianni Yuan RN)2100 (Due) clonazePAM (KLONOPIN) tablet 0.5 mg 0.5 mg, Oral, 2 TIMES DAILY, First dose on Fri04/18/21 at 0430 0753 (Given - Provider: Reddy Kelley RN)2145 (Given - Provider: Clarence Walden RN) 0918 (Given - Provider: Lashell Flores, RAJAN)212 (Given - Provider: Clarence Walden RN) 0931 (Given - Provider: Gianni Yuan, RAJAN)2099 (Due) cloNIDine (CATAPRES) tablet 0.1 mg 0.1 mg, Per G Tube, 3 TIMES DAILY, First dose on Fri04/18/21 at 0900 0756 (Given - Provider: Reddy Kelley RN)1306 (Given - Provider: Reddy Kelley RN)214 (Given - Provider: Clarence Walden RN) 0917 (Given - Provider: Lashell Flores, RAJAN)1448 (Given - Provider: Lashell Flores RN)2127 (Given - Provider: Clarence Walden RN) 0931 (Given - Provider: Gianni Yuan, RAJAN)1359 (Given - Provider: Gianni Yuan, RAJAN)2100 (Due) doxycycline monohydrate (MONODOX) capsule 100 mg 100 mg, Oral, EVERY 12 HOURS SCHEDULED (2 times per day), First dose on Fri04/18/21 at 0900, For 14 days, This medication can interact with tube feedings (TF)- obtain MD order to manage. Recommend holding TF for 1 h before and 2 h after dose. Take 1 h before or 2 h after dairy, calcium, iron, magnesium, aluminum or zinc. 0752 (Given - Provider: Reddy Kelley RN)2145 (Given - Provider: Clarence Walden RN) 0917 (Given - Provider: Lashell Flores RN)212 (Given - Provider: Clarence Walden RN) 0932 (Given - Provider: Gianni Yuan, RAJAN)2100 (Due) enoxaparin (LOVENOX) injection 40 mg 40 mg, SubCUTAneous, DAILY, First dose on Fri04/18/21 at 0900 0755 (Given - Provider: Reddy Kelley RN) 0915 (Given - Provider: Lashell Flores RN) 0930 (Given - Provider: Gianni Yuan, RAJAN) famotidine (PEPCID) tablet 20 mg 20 mg, Oral, 2 TIMES DAILY, First dose on Fri04/18/21 at 0900 0751 (Given - Provider: Reddy Kelley RN)2146 (Given - Provider: Clarence Walden RN) 0917 (Given - Provider: Lashell Flores, RAJAN)2127 (Given - Provider: Clarence Walden RN) 0932 (Given - Provider: Gianni Yuan, RAJAN)2100 (Due) gabapentin (NEURONTIN) capsule 800 mg 800 mg, Oral, 3 TIMES DAILY, First dose on Fri04/18/21 at 0900 0752 (Given - Provider: Reddy Kelley RN)1306 (Given - Provider: Reddy Kelley RN)2145 (Given - Provider: Clarence Walden RN) 0916 (Given - Provider: Lashell Flores, RAJAN)1448 (Given - Provider: Lashell Flores RN)2127 (Given - Provider: Clarence Walden RN) 0931 (Given - Provider: Gianni Yuan RN)1359 (Given - Provider: Gianni Yuan, RAJAN)2100 (Due) levETIRAcetam (KEPPRA) tablet 500 mg 500 mg, Oral, 2 TIMES DAILY, First dose on Fri04/18/21 at 0900, Do not crush or chew. 0752 (Given - Provider: Reddy Kelley RN)2144 (Given - Provider: Clarence Walden RN) 0918 (Given - Provider: Lashell Flores RN)2127 (Given - Provider: Clarence Walden RN) 0931 (Given - Provider: Gianni Yuan, RAJAN)2100 (Due) lidocaine 4 % external patch 2 patch 2 patch, TransDERmal, Administer over 12 Hours, DAILY, First dose on Fri04/21/21 at 1445, Apply patch to affected area. Patch may remain in place for up to 12 hours in any 24 hour period. 0754 (Patch Applied - Provider: Reddy Kelley RN)215 (Patch Removed - Provider: Clarence Walden RN) 0914 (Patch Applied - Provider: Lashell Flores RN)2137 (Patch Removed - Provider: Clarence Walden RN) 0933 (Patch Applied - Provider: Gianni Yuan, RAJAN)213 (Due: Patch Removed - Provider: Gianni Yuan RN) melatonin tablet 5 mg 5 mg, Oral, NIGHTLY, First dose on Fri04/18/21 at 2100 2145 (Given - Provider: Clarence Walden RN) 2127 (Given - Provider: Clarence Walden RN) 2099 (Due) methadone (DOLOPHINE) 10 MG/ML solution 85 mg 85 mg, Oral, DAILY, First dose on Fri04/18/21 at 1230, Dose verfified / given during recent admission 03/29 thru 04/12; followup at [facility] or [facility] depending on disposition at discharge 0754 (Given - Provider: Reddy Kelley RN) 0918 (Given - Provider: Lashell Flores, RAJAN) 0930 (Given - Provider: Gianni Yuan, RAJAN) methocarbamol (ROBAXIN) tablet 1,000 mg 1,000 mg, Oral, 4 TIMES DAILY, First dose on Lexie 04/19/21 at 1300 0751 (Given - Provider: Reddy Kelley RN)1131 (Given - Provider: Reddy Kelley RN)1718 (Given - Provider: Reddy Kelley RN)2145 (Given - Provider: Clarence Walden RN) 0916 (Given - Provider: Lashell Flores, RAJAN)1448 (Given - Provider: Lashell Flores, RAJAN)1645 (Given - Provider: Lashell Flores, RAJAN)2128 (Given - Provider: Clarence Walden RN) 0932 (Given - Provider: Gianni Yuan, RAJAN)1359 (Given - Provider: Gianni Yuan, RAJAN)1700 (Due)2099 (Due) mirtazapine (REMERON) tablet 7.5 mg 7.5 mg, Oral, NIGHTLY, First dose on Fri04/22/21 at 2100 2146 (Given - Provider: Clarence Walden RN) 2127 (Given - Provider: Clarence Walden, RAJAN) 2099 (Due) sertraline (ZOLOFT) tablet 100 mg 100 mg, Oral, DAILY, First dose on Fri04/18/21 at 0900 0752 (Given - Provider: Reddy Kellye RN) 0916 (Given - Provider: Lashell Flores RN) 0931 (Given - Provider: Gianni Yuan, RAJAN) sodium chloride flush 0.9 % injection 3 mL(Linked Group 1) 3 mL, IntraVENous, EVERY 8 HOURS, First dose on Fri04/17/21 at 1830, Flush line with 3-5 mL 0122 (Not Given - Provider: Andre Quan RN - Reason: Other)0927 (Not Given - Provider: Reddy Kleley RN - Reason: Other)1950 (Not Given - Provider: Clarence Walden RN - Reason: Other) 0543 (Given - Provider: Clarence Walden RN)0920 (Not Given - Provider: Lashell Flores RN - Reason: Other - Comment: flush with 10ml)1646 (Given - Provider: Lashell Flores RN) 0934 (Given - Provider: Gianni Yuan, RAJAN)0935 (Not Given - Provider: Gianni Yuan RN - Reason: Other)1830 (Due) sodium chloride flush 0.9 % injection 5-40 mL 5-40 mL, IntraVENous, EVERY 12 HOURS SCHEDULED (2 times per day), First dose on Fri04/18/21 at 0900, For Line Patency: Peripheral IV = 5 mL; Midline or Central Line = 10 mL/lumen. If following IV push medication, administer flush at same rate as the IV push. Flush volume is determined by type of infusion therapy being given. For non-viscous solutions use: Peripheral IV = 5 mL Midline or Central Line = 10 mL/lumen For viscous solutions (i.e. blood components, parenteral nutrition, contrast media, or after obtaining blood sample) use: Peripheral IV = 10 mL Midline or Central Line = 20 mL/lumen 0756 (Given - Provider: Reddy Kelley RN)2150 (Given - Provider: Clarence Walden RN) 0919 (Given - Provider: Lashell Flores RN)2138 (Given - Provider: Clarence Walden RN) 1155 (Not Given - Provider: Gianni Yuan RN - Reason: Other)2100 (Due) PRN Medication Order 04/28/2021 04/29/2021 04/30/2021 0.9 % sodium chloride infusion 25 mL, IntraVENous, at 100 mL/hr, PRN, If patient receiving piggyback infusions without ordered maintenance IV fluids or with frequent/long duration piggyback infusions, Starting on Fri04/18/21 at 0151, Administer at the same rate as the piggyback being infused. acetaminophen (TYLENOL) suppository 650 mg(Linked Group 2) 650 mg, Rectal, EVERY 6 HOURS PRN, Pain Mild (1-3), Fever, For temp greater than 100.4 F (38 C), Starting on Fri04/18/21 at 0151, Administer if oral route cannot be used. acetaminophen (TYLENOL) tablet 650 mg(Linked Group 2) 650 mg, Oral, EVERY 6 HOURS PRN, Pain Mild (1-3), Fever, For temp greater than 100.4 F (38 C), Starting on Fri04/18/21 at 0151, Maximum dose of acetaminophen is 4000 mg from all sources in 24 hours. bismuth subsalicylate (PEPTO BISMOL) 262 MG/15ML suspension 30 mL 30 mL, Oral, EVERY 6 HOURS PRN, Indigestion, Diarrhea, Starting on Fri04/18/21 at 0348 0124 (Given - Provider: Andre Quan RN)0758 (Given - Provider: Reddy Kelley RN)1718 (Given - Provider: Reddy Kelley RN) 1127 (Given - Provider: Lashell Flores RN) 0932 (Given - Provider: Gianni Yuan, RAJAN) loperamide (IMODIUM) capsule 2 mg 2 mg, Oral, 4 TIMES DAILY PRN, Diarrhea, Starting on Fri04/22/21 at 0900, First line diarrhea After each loose stool. 0752 (Given - Provider: Reddy Kelley RN) 0354 (Given - Provider: Clarence Walden, RAJAN)0932 (Given - Provider: Gianni Yuan, RAJAN) morphine sulfate (PF) injection 2 mg 2 mg, IntraVENous, EVERY 4 HOURS PRN, Pain Severe (7-10), Starting on Fri04/18/21 at 0954, If oral and IV narcotics ordered, use oral first and only use IV if oral is ineffective or cannot take oral. Do Not give oral and IV within 1 hour of each other unless specifically ordered. 1131 (Given - Provider: Reddy Kelley RN)1538 (Given - Provider: Reddy Kelley RN)2000 (Given - Provider: Clarence Walden RN) 2036 (Given - Provider: Clarence Walden RN) 0549 (Given - Provider: Clarence Walden RN)1355 (Given - Provider: Gianni Yuan, RN) ondansetron (ZOFRAN) injection 4 mg(Linked Group 3) 4 mg, IntraVENous, EVERY 6 HOURS PRN, Nausea, Vomiting, Starting on Fri04/18/21 at 0151, Administer if oral route cannot be used. ondansetron (ZOFRAN-ODT) disintegrating tablet 4 mg(Linked Group 3) 4 mg, Oral, EVERY 8 HOURS PRN, Nausea, Vomiting, Starting on Fri04/18/21 at 0151 oxyCODONE (ROXICODONE) immediate release tablet 10 mg(Linked Group 4) 10 mg, Oral, EVERY 4 HOURS PRN, Pain Severe (7-10), Starting on Fri04/18/21 at 0214 0124 (Given - Provider: Andre Quan RN)0752 (Given - Provider: Reddy Kelley RN)1306 (Given - Provider: Reddy Kelley RN)1718 (Given - Provider: Reddy Kelley RN) 0604 (Given - Provider: Clarence Walden RN)1126 (Given - Provider: Lashell Flores, RAJAN)1645 (Given - Provider: Lashell Flores RN)2359 (Given - Provider: Clarence Walden RN) 0353 (Given - Provider: Clarence Walden RN)0932 (Given - Provider: Gianni Yuan, RN)1600 (Given - Provider: Char Gamino RN) oxyCODONE (ROXICODONE) immediate release tablet 5 mg(Linked Group 4) 5 mg, Oral, EVERY 4 HOURS PRN, Pain Moderate (4-6), Starting on Fri04/18/21 at 0214 0124 (See Alternative - Provider: Andre Quan RN)0752 (See Alternative - Provider: Reddy Kelley RN)1306 (See Alternative - Provider: Reddy Kelley RN)1718 (See Alternative - Provider: Reddy Kelley RN) 0604 (See Alternative - Provider: Clarence Walden RN)1126 (See Alternative - Provider: Lashell Flores RN)1645 (See Alternative - Provider: Lashell Flores RN)2359 (See Alternative - Provider: Clarence Walden RN) 0353 (See Alternative - Provider: Clarence Walden RN)0932 (See Alternative - Provider: Gianni Yuan, RAJAN)1600 (See Alternative - Provider: Char Gamino RN) polyethylene glycol (GLYCOLAX) packet 17 g 17 g, Oral, DAILY PRN, Constipation, Starting on Fri04/18/21 at 0151, First line therapy for constipation sodium chloride flush 0.9 % injection 5-40 mL 5-40 mL, IntraVENous, PRN, Line Care, After every IV line use, Starting on Fri04/18/21 at 0151, For Line Patency: Peripheral IV = 5 mL; Midline or Central Line = 10 mL/lumen. If following IV push medication, administer flush at same rate as the IV push. Flush volume is determined by type of infusion therapy being given. For non-viscous solutions use: Peripheral IV = 5 mL Midline or Central Line = 10 mL/lumen For viscous solutions (i.e. blood components, parenteral nutrition, contrast media, or after obtaining blood sample) use: Peripheral IV = 10 mL Midline or Central Line = 20 mL/lumen Linked Groups Order Group 1: Saline lock IV Routine, CONTINUOUS, Starting on Fri04/17/21 at 1830, Until Specified And sodium chloride flush 0.9 % injection 3 mLJump to med 3 mL, IntraVENous, EVERY 8 HOURS, First dose on Fri04/17/21 at 1830
Flush line with 3-5 mL
Group 2: acetaminophen (TYLENOL) tablet 650 mgJump to med 650 mg, Oral, EVERY 6 HOURS PRN, Pain Mild (1-3), Fever, For temp greater than 100.4 F (38 C), Starting on Fri04/18/21 at 0151
Maximum dose of acetaminophen is 4000 mg from all sources in 24 hours.
Or acetaminophen (TYLENOL) suppository 650 mgJump to med 650 mg, Rectal, EVERY 6 HOURS PRN, Pain Mild (1-3), Fever, For temp greater than 100.4 F (38 C), Starting on Fri04/18/21 at 0151
Administer if oral route cannot be used.
Group 3: ondansetron (ZOFRAN-ODT) disintegrating tablet 4 mgJump to med 4 mg, Oral, EVERY 8 HOURS PRN, Nausea, Vomiting, Starting on Fri04/18/21 at 0151 Or ondansetron (ZOFRAN) injection 4 mgJump to med 4 mg, IntraVENous, EVERY 6 HOURS PRN, Nausea, Vomiting, Starting on Fri04/18/21 at 0151
Administer if oral route cannot be used.
Group 4: oxyCODONE (ROXICODONE) immediate release tablet 5 mgJump to med 5 mg, Oral, EVERY 4 HOURS PRN, Pain Moderate (4-6), Starting on Fri04/18/21 at 0214 Or oxyCODONE (ROXICODONE) immediate release tablet 10 mgJump to med 10 mg, Oral, EVERY 4 HOURS PRN, Pain Severe (7-10), Starting on Fri04/18/21 at 0214 Scheduled Medication Order 01/14/2024 01/15/2024 01/16/2024 acetaminophen (Tylenol) tablet 975 mg 975 mg (rounded from 1,000 mg), oral, Every 8 hours, First dose (after last modification) on Fri01/11/24 at 1400, Phase II/On Unit, If ordered PRN for pain, nurse is permitted to administer this medication for higher pain scores based on patient preference? Yes 0622 (Given - Provider: Kristi Del Castillo RN)1334 (Given - Provider: Shahriar Mantilla RN)2100 (Given - Provider: Nancy García RN) 0521 (Given - Provider: Nancy García RN)1303 (Given - Provider: Marilia Valdes RN)2107 (Given - Provider: Kelly Scherer RN) 0548 (Given - Provider: Kelly Scherer RN)1601 (Not Given - Provider: Shruthi Martinez RN - Reason: Patient/family refused)2200 (Due) aspirin EC tablet 81 mg 81 mg, oral, 2 times daily, First dose on Fri01/09/24 at 1430, Phase II/On Unit, Do not crush, chew, or split. 0922 (Given - Provider: Shahriar Mantilla RN)205 (Given - Provider: Nancy García RN) 09 (Given - Provider: Marilia Valdes RN)2025 (Given - Provider: Kelly Scherer RN) 0919 (Given - Provider: Shruthi Martinez, RN)2100 (Due) baclofen (Lioresal) tablet 20 mg 20 mg, oral, 3 times daily, First dose on 01/10/24 at 1115 0623 (Given - Provider: Kristi Del Castillo RN)1333 (Given - Provider: Shahriar Mantilla RN)2054 (Given - Provider: Nancy García RN) 0522 (Given - Provider: Nancy García RN)1303 (Given - Provider: Marilia Valdes RN)2025 (Given - Provider: Kelly Scherer, RAJAN) 0416 (Given - Provider: Kelly Scherer RN)1129 (Given - Provider: Shruthi Martinez, RAJAN)2100 (Due) buPROPion SR (Wellbutrin SR) 12 hr tablet 150 mg 150 mg, oral, Every 12 hours scheduled (0630,1830), First dose on 01/10/24 at 1115, Do not crush, chew, or split. 0622 (Given - Provider: Kristi Del Castillo RN)1750 (Given - Provider: Shahriar Mantilla RN) 0605 (Given - Provider: Nancy García RN)1752 (Given - Provider: Marilia Valdes RN) 0548 (Given - Provider: Kelly Scherer RN)1830 (Due) calcium carbonate-vitamin D3 500 mg-5 mcg (200 unit) per tablet 1 tablet 1 tablet, oral, 2 times daily, First dose on Fri01/09/24 at 1430, Phase II/On Unit 0922 (Given - Provider: Shahriar Mantilla RN)2054 (Given - Provider: Nancy García RN) 0905 (Given - Provider: Marilia Valdes RN)2025 (Given - Provider: Kelly Scherer RN) 0918 (Given - Provider: Shruthi Martinez, RAJAN)2100 (Due) clonazePAM (KlonoPIN) tablet 0.5 mg 0.5 mg, oral, 3 times daily, First dose on 01/10/24 at 1115 0623 (Given - Provider: Kristi Del Castillo RN)1102 (Given - Provider: Shahriar Mantilla RN)2054 (Given - Provider: Nancy García RN) 0521 (Given - Provider: Nancy García RN)110 (Given - Provider: Marilia Valdes RN)2025 (Given - Provider: Kelly Scherer RN) 0416 (Given - Provider: Kelly Scherer RN)1127 (Given - Provider: Shruthi Martinez RN)1999 (Due) cloNIDine (Catapres) tablet 0.1 mg 0.1 mg, oral, 3 times daily, First dose on Fri01/10/24 at 1115 0623 (Not Given - Provider: Kristi Del Castillo RN - Reason: Patient/family refused)1334 (Given - Provider: Shahriar Mantilla RN)2054 (Given - Provider: Nancy García RN) 0522 (Given - Provider: Nancy García RN)1303 (Given - Provider: Marilia Valdes RN)2025 (Given - Provider: Kelly Scherer RN) 041 (Given - Provider: Kelly Scherer RN)1128 (Given - Provider: Shruthi Martinez RN)2100 (Due) ergocalciferol (Vitamin D-2) capsule 1,250 mcg 1,250 mcg, oral, Weekly, First dose on Fri01/09/24 at 1430, Phase II/On Unit 0919 (Given - Provider: Shruthi Martinez RN) gabapentin (Neurontin) capsule 600 mg 600 mg, oral, 3 times daily, First dose on Fri01/10/24 at 1115, Capsules may be opened and sprinkled on food (eg, applesauce, orange juice, pudding). Capsules may be opened and sprinkled on food (eg, applesauce, orange juice, pudding 0623 (Given - Provider: Kristi Del Castillo RN)110 (Given - Provider: Shahriar Mantilla RN)2053 (Given - Provider: Nancy García RN) 0521 (Given - Provider: Nancy García RN)110 (Given - Provider: Marilia Valdes RN)2025 (Given - Provider: Kelly Scherer RN) 0416 (Given - Provider: Kelly Scherer RN)1127 (Given - Provider: Shruthi Martinez, RN)1999 (Due) levETIRAcetam (Keppra) tablet 500 mg 500 mg, oral, 2 times daily, First dose on 01/10/24 at 1115 0922 (Given - Provider: Shahriar Mantilla RN)2053 (Given - Provider: Nancy García RN) 09 (Given - Provider: Marilia Vlades RN)2025 (Given - Provider: Kelly Scherer RN) 0918 (Given - Provider: Shruthi Martinez, RAJAN)2100 (Due) levothyroxine (Synthroid, Levoxyl) tablet 75 mcg 75 mcg, oral, Daily, First dose on 01/11/24 at 0600 0623 (Given - Provider: Kristi Del Castillo RN) 0521 (Given - Provider: Nancy García RN) 0548 (Given - Provider: Kelly Scherer RN) lidocaine (Xylocaine) 10 mg/mL (1 %) injection 5 mL 5 mL, infiltration, Once, On 01/11/24 at 1045, For 1 dose lidocaine 4 % patch 1 patch 1 patch, transdermal, Administer over 12 Hours, Daily, First dose on 01/10/24 at 1115 0931 (Not Given - Provider: Shahriar Mantilla RN - Reason: Patient/family refused) 0904 (Not Given - Provider: Marilia Valdes RN - Reason: Patient/family refused) 0918 (Not Given - Provider: Shruthi Martinez RN - Reason: Patient/family refused) methadone (Dolophine) solution 100 mg 100 mg, oral, Daily RT, First dose on 01/10/24 at 1115 0619 (Given - Provider: Kristi Del Castillo RN) 0605 (Given - Provider: Nancy García RN) 0917 (Given - Provider: Shruthi Martinez RN) nicotine (Nicoderm CQ) 14 mg/24 hr patch 1 patch(Linked Group 1) 1 patch, transdermal, Administer over 24 Hours, Daily, First dose on 01/10/24 at 1230, For 42 days 0830 (Medication Removed - Provider: Shahriar Mantilla RN)0924 (Medication Applied - Provider: Shahriar Mantilla RN) 0905 (Medication Removed - Provider: Marilia Valdes RN)0906 (Medication Applied - Provider: Marilia Valdes RN) 0904 (Medication Removed - Provider: Shruthi Martinez, RN)0919 (Medication Applied - Provider: Shruthi Martinez, RN) nicotine (Nicoderm CQ) 7 mg/24 hr patch 1 patch(Linked Group 1) 1 patch, transdermal, Administer over 24 Hours, Daily, First dose on Fri02/21/24 at 0900, For 14 days piperacillin-tazobactam (Zosyn) 3.375 g in dextrose (iso) IV 50 mL 3.375 g, intravenous, Administer over 0.5 Hours, Every 6 hours, First dose (after last reorder) on Fri01/09/24 at 2215, Phase II/On Unit, premix bag, Dosing of this medication varies based on severity of illness. Does this patient have sepsis or concern for sepsis (probable or documented infection plus systemic manifestations of infection)? No, Suspected Indication (Select all that apply): Surgical Prophylaxis, Indications: Surgical Prophylaxis 0029 (Stopped - Provider: Kristi Del Castillo RN)0623 (New Bag - Provider: Kristi Del Castillo RN)0741 (Stopped - Provider: Shahriar Mantilla RN)1109 (New Bag - Provider: Shahriar Mantilla RN)1141 (Stopped - Provider: Shahriar Mantilla RN)1750 (New Bag - Provider: Shahriar Mantilla RN)1837 (Stopped - Provider: Shahriar Mantilla RN)2350 (New Bag - Provider: Nancy García RN) 0022 (Stopped - Provider: Nancy García RN)0522 (New Bag - Provider: Nancy García RN)0609 (Stopped - Provider: Nancy García RN)1103 (New Bag - Provider: Marilia Valdes RN)1133 (Stopped - Provider: Marilia Valdes, RAJAN)1600 (New Bag - Provider: Marilia Valdes, RAJAN)1632 (Stopped - Provider: Marilia Valdes RN)2239 (New Bag - Provider: Kelly Scherer RN)2310 (Stopped - Provider: Kelly Scherer RN) 0417 (New Bag - Provider: Kelly Scherer RN)0445 (Stopped - Provider: Kelly Scherer RN)1127 (New Bag - Provider: Shruthi Martinez RN)1231 (Stopped - Provider: Shruthi Martinez RN)1700 (Due)2300 (Due) polyethylene glycol (Glycolax, Miralax) packet 17 g 17 g, oral, Daily, First dose on Fri01/09/24 at 1430, Phase II/On Unit, Bowel Regimen - for prevention of constipation. 0922 (Not Given - Provider: Shahriar Mantilla RN - Reason: Patient/family refused) 0904 (Not Given - Provider: Marilia Valdes RN - Reason: Patient/family refused) 0920 (Not Given - Provider: Shruthi Martinez RN - Reason: Patient/family refused) sennosides-docusate sodium (Kelly-Colace) 8.6-50 mg per tablet 2 tablet 2 tablet, oral, 2 times daily, First dose on Fri01/09/24 at 1430, Phase II/On Unit, Bowel Regimen - for prevention of constipation Hold for loose stools 0922 (Given - Provider: Shahriar Mantilla RN)2055 (Not Given - Provider: Nancy García RN - Reason: Patient/family refused) 09 (Given - Provider: Marilia Valdes RN)2024 (Not Given - Provider: Kelly Scherer RN - Reason: Patient/family refused) 0921 (Not Given - Provider: Shruthi Martinez RN - Reason: Patient/family refused)2100 (Due) sertraline (Zoloft) tablet 100 mg 100 mg, oral, Daily, First dose on Fri01/10/24 at 1115 0922 (Given - Provider: Shahriar Mantilla RN) 0905 (Given - Provider: Marilia Valdes RN) 0919 (Given - Provider: Shruthi Martinez RN) vancomycin 1,250 mg in NS IV 250 mL 1,250 mg, intravenous, at 200 mL/hr, Administer over 75 Minutes, Every 12 hours, First dose (after last reorder) on 01/10/24 at 0930, Premix Bag, Dosing of this medication varies based on severity of illness. Does this patient have sepsis or concern for sepsis (probable or documented infection plus systemic manifestations of infection)? No, Suspected Indication (Select all that apply): Surgical Prophylaxis, Indications: Surgical Prophylaxis 0923 (New Bag - Provider: Shahriar Mantilla RN)1051 (Stopped - Provider: Shahriar Mantilla, RN)2050 (New Bag - Provider: Nancy García RN)2210 (Stopped - Provider: Nancy García RN) 0905 (New Bag - Provider: Marilia Valdes, RAJAN)1032 (Stopped - Provider: Marilia Valdes, RAJAN)2107 (New Bag - Provider: Kelly Scherer RN)223 (Stopped - Provider: Kelly Scherer RN) 0944 (New Bag - Provider: Shruthi Martinez RN)1058 (Stopped - Provider: Shruthi Martinez RN)2130 (Due) Continuous Medication Order 01/14/2024 01/15/2024 01/16/2024 oxygen (O2) therapy 2 L/min, inhalation, Continuous, Starting on Fri01/09/24 at 1430, Phase II/On Unit, Titrate supplemental oxygen to maintain oxygen saturation greater than or equal to 92%. Okay to dc if not needed. , Device: Nasal Cannula, Rate in liters per minute: 2 LPM, Keep O2 Sat Above: 92% PRN Medication Order 01/14/2024 01/15/2024 01/16/2024 alteplase (Cathflo Activase) injection 2 mg 2 mg, intra-catheter, As needed, line care, Starting on Fri01/11/24 at 1023, Via PICC Line Removed by: Aspiration Inject into partial/totally occluded catheter lumen for total of 30 to 120 minute dwell time; assess patency at 30 minutes and if not patent, dwell for additional 90 minutes. If still not patent, repeat alteplase 2 mg injected into thrombotic partial or totally occluded lumen for a total of 120 minute dwell time; assess patency at 30 minutes and if not patent, dwell for 90 minutes. If still not patent, notify provider. Dilute each 2 mg vial with 2.2 mL sterile water to give 1 mg/mL final concentration. Swirl gently to mix; do not shake. bisacodyl (Dulcolax) suppository 10 mg 10 mg, rectal, Daily PRN, constipation, second line, Starting on Fri01/09/24 at 1410, Phase II/On Unit, 2nd line for treatment of constipation - contact provider if no bowel movement in past 48 hours. diphenhydrAMINE (BENADryl) injection 12.5 mg 12.5 mg, intravenous, Every 6 hours PRN, itching, Starting on Fri01/09/24 at 1410, Phase II/On Unit magnesium hydroxide (Milk of Magnesia) 400 mg/5 mL suspension 30 mL 30 mL, oral, Daily PRN, constipation, first line, Starting on Fri01/09/24 at 1410, Phase II/On Unit, Contact provider if no bowel movement in past 48 hours. Follow administration with 8 ounces of water. naloxone (Narcan) injection 0.2 mg 0.2 mg, intravenous, Every 5 min PRN, respiratory depression, Starting on Fri01/09/24 at 1410, Phase II/On Unit, If respiratory rate is less than 8 breaths/minute or patient is difficult to arouse stop any narcotics and contact physician. Administer slow IV push. Repeat as ordered until patient's respiratory rate is greater than 12 breaths/minute. ondansetron (Zofran) injection 4 mg(Linked Group 2) 4 mg, intravenous, Every 8 hours PRN, nausea/vomiting, first line, Starting on Fri01/09/24 at 1410, Phase II/On Unit, 1st Line. Give IV if patient is unable to take orally. If inadequate response within 60 minutes, proceed to next-line agent for same PRN reason or contact provider if no further options ordered. When administering via IV Push, administer over 3-5 minutes. ondansetron (Zofran) tablet 4 mg(Linked Group 2) 4 mg, oral, Every 8 hours PRN, nausea/vomiting, first line, Starting on Fri01/09/24 at 1410, Phase II/On Unit, 1st Line. Use oral route first, if possible. If inadequate response within 60 minutes, proceed to next-line agent for same PRN reason or contact provider if no further options ordered. oxyCODONE (Roxicodone) immediate release tablet 2.5 mg 2.5 mg, oral, Every 6 hours PRN, pain moderate (4-6), first line, Starting on 01/10/24 at 1112, Phase II/On Unit, If ordered PRN for pain, nurse is permitted to administer this medication for higher pain scores based on patient preference? Yes oxyCODONE (Roxicodone) immediate release tablet 5 mg 5 mg, oral, Every 4 hours PRN, pain severe (7-10), first line, Starting on 01/10/24 at 1112, Phase II/On Unit, If ordered PRN for pain, nurse is permitted to administer this medication for higher pain scores based on patient preference? Yes prochlorperazine (Compazine) injection 10 mg(Linked Group 3) 10 mg, intravenous, Every 6 hours PRN, nausea/vomiting, second line, Starting on Fri01/09/24 at 1410, Phase II/On Unit, Give IV if patient is unable to take orally. 0944 (See Alternativ e - Provider: Shruthi Martinez RN) prochlorperazine (Compazine) suppository 25 mg(Linked Group 3) 25 mg, rectal, Every 12 hours PRN, nausea/vomiting, second line, Starting on Fri01/09/24 at 1410, Phase II/On Unit, 2nd Line. Give MD if patient is unable to take orally or receive by injection. If inadequate response within 60 minutes, proceed to next-line agent for same PRN reason or contact provider if no further options ordered. 0944 (See Alternativ e - Provider: Shruthi Martinez RN) prochlorperazine (Compazine) tablet 10 mg(Linked Group 3) 10 mg, oral, Every 6 hours PRN, nausea/vomiting, second line, Starting on Fri01/09/24 at 1410, Phase II/On Unit, 2nd Line. If inadequate response within 60 minutes, proceed to next-line agent for same PRN reason or contact provider if no further options ordered. 0944 (Given - Provid er: Shruthi Martinez RN) promethazine (Phenergan) tablet 25 mg 25 mg, oral, Every 6 hours PRN, nausea/vomiting, first line, Starting on 01/10/24 at 1052 vancomycin (Vancocin) pharmacy to dose - pharmacy monitoring miscellaneous, Daily PRN, other, Vancomycin Placeholder, Starting on Fri01/09/24 at 1410, Phase II/On Unit, This is a placeholder. Pharmacy will enter orders when vancomycin needs to be administered. Linked Groups Order Group 1: nicotine (Nicoderm CQ) 14 mg/24 hr patch 1 patchJump to med 1 patch, transdermal, Administer over 24 Hours, Daily, First dose on 01/10/24 at 1230, For 42 days Followed by nicotine (Nicoderm CQ) 7 mg/24 hr patch 1 patchJump to med 1 patch, transdermal, Administer over 24 Hours, Daily, First dose on 02/21/24 at 0900, For 14 days Group 2: ondansetron (Zofran) tablet 4 mgJump to med 4 mg, oral, Every 8 hours PRN, nausea/vomiting, first line, Starting on Fri01/09/24 at 1410, Phase II/On Unit, 1st Line. Use oral route first, if possible. If inadequate response within 60 minutes, proceed to next-line agent for same PRN reason or contact provider if no further options ordered. Or ondansetron (Zofran) injection 4 mgJump to med 4 mg, intravenous, Every 8 hours PRN, nausea/vomiting, first line, Starting on Fri01/09/24 at 1410, Phase II/On Unit, 1st Line. Give IV if patient is unable to take orally. If inadequate response within 60 minutes, proceed to next-line agent for same PRN reason or contact provider if no further options ordered. When administering via IV Push, administer over 3-5 minutes. Group 3: prochlorperazine (Compazine) tablet 10 mgJump to med 10 mg, oral, Every 6 hours PRN, nausea/vomiting, second line, Starting on Fri01/09/24 at 1410, Phase II/On Unit, 2nd Line. If inadequate response within 60 minutes, proceed to next-line agent for same PRN reason or contact provider if no further options ordered. Or prochlorperazine (Compazine) injection 10 mgJump to med 10 mg, intravenous, Every 6 hours PRN, nausea/vomiting, second line, Starting on Fri01/09/24 at 1410, Phase II/On Unit, Give IV if patient is unable to take orally. Or prochlorperazine (Compazine) suppository 25 mgJump to med 25 mg, rectal, Every 12 hours PRN, nausea/vomiting, second line, Starting on Fri01/09/24 at 1410, Phase II/On Unit, 2nd Line. Give MD if patient is unable to take orally or receive by injection. If inadequate response within 60 minutes, proceed to next-line agent for same PRN reason or contact provider if no further options ordered. Scheduled Medication Order 03/16/2024 03/17/2024 03/18/2024 acetaminophen (Tylenol) tablet 975 mg 975 mg, oral, Every 8 hours, First dose on Fri03/11/24 at 2000, If ordered PRN for pain, nurse is permitted to administer this medication for higher pain scores based on patient preference? Yes 0501 (Given - Provider: Kristi Del Castillo RN)1205 (Given - Provider: Marilia Valdes RN)2020 (Given - Provider: Trupti Yen RN) 0613 (Given - Provider: Meg Lopez RN)1157 (Given - Provider: Vee Garrido RN)2002 (Given - Provider: Kristi Del Castillo RN) 0427 (Not Given - Provider: Kristi Del Castillo RN - Reason: Patient/family refused)1115 (Given - Provider: Vee Garrido RN)1999 (Due) aspirin chewable tablet 81 mg 81 mg, oral, 2 times daily, First dose on Fri03/17/24 at 0900 0818 (Given - Provider: Vee Garrido RN)2002 (Given - Provider: Kristi Del Castillo RN) 0814 (Given - Provider: Vee Garrido RN)2099 (Due) bismuth subsalicylate (Pepto Bismol) chewable tablet 524 mg 524 mg, oral, 4 times daily before meals and nightly, First dose on Fri03/18/24 at 0800 0942 (Given - Provider: Vee Garrido RN)1005 (Not Given - Provider: Vee Garrido RN - Reason: Other)1600 (Due)2100 (Due) buPROPion SR (Wellbutrin SR) 12 hr tablet 150 mg 150 mg, oral, Every 12 hours, First dose on Fri03/11/24 at 2100, Do not crush, chew, or split. 0807 (Given - Provider: Marilia Valdes RN)2020 (Given - Provider: Trupti Yen RN) 09 (Given - Provider: Vee Garrido, RAJAN)2003 (Given - Provider: Kristi Del Castillo RN) 0814 (Given - Provider: Vee Garrido RN)2100 (Due) dalbavancin (Dalvance) 1,500 mg in dextrose 5% 500 mL IV (COMPLETED) 1,500 mg, intravenous, at 1,150 mL/hr, Administer over 30 Minutes, Once, On Fri03/17/24 at 1815, For 1 dose, Flush line before and after administration with D5W, Suspected Indication (Select all that apply): Osteomyelitis/Septic Arthritis, Type of Therapy: Definitive, Based on Culture, Coverage (Select all that apply): MRSA: Staph, Methicillin-Resistant, Indications: Osteomyelitis/Septic Arthritis 2130 (New Bag - Provider: Kristi Del Castillo RN)2230 (Stopped - Provider: Kristi Del Castillo RN) DAPTOmycin (Cubicin) 750 mg in sodium chloride 0.9% 50 mL IV (CANCELED) 750 mg (rounded from 748 mg = 10 mg/kg 74.8 kg Adjusted weight), intravenous, at 130 mL/hr, Administer over 30 Minutes, Every 24 hours, First dose on Fri03/15/24 at 1200, For 42 days, Suspected Indication (Select all that apply): Osteomyelitis/Septic Arthritis, Type of Therapy: Definitive, Based on Culture, Coverage (Select all that apply): MRSA: Staph, Methicillin-Resistant, Indications: Osteomyelitis/Septic Arthritis 1205 (New Bag - Provider: Marilia Valdes RN)1236 (Stopped - Provider: Marilia Valdes RN) 1158 (New Bag - Provider: Vee Garrido RN)1255 (Stopped - Provider: Vee Garrido RN) enoxaparin (Lovenox) syringe 40 mg (CANCELED) 40 mg, subcutaneous, Daily, First dose on Fri03/13/24 at 0900 0806 (Given - Provider: Marilia Valdes RN) gabapentin (Neurontin) capsule 300 mg 300 mg, oral, 3 times daily, First dose on Lexie 03/11/24 at 2100, Capsules may be opened and sprinkled on food (eg, applesauce, orange juice, pudding). Capsules may be opened and sprinkled on food (eg, applesauce, orange juice, pudding 0807 (Given - Provider: Marilia Valdes RN)141 (Given - Provider: Marilia Valdes RN)2020 (Given - Provider: Trupti Yen RN) 08 (Given - Provider: Vee Garrido RN)141 (Given - Provider: Vee Garrido RN)2002 (Given - Provider: Kristi Del Castillo RN) 08 (Given - Provider: Vee Garrido RN)1500 (Due)2099 (Due) levETIRAcetam (Keppra) tablet 500 mg 500 mg, oral, 2 times daily, First dose on Lexie 03/11/24 at 2100 0806 (Given - Provider: Marilia Valdes RN)2020 (Given - Provider: Trupti Yen RN) 08 (Given - Provider: Vee Garrido RN)2002 (Given - Provider: Kristi Del Castillo RN) 08 (Given - Provider: Vee Garrido RN)2099 (Due) levothyroxine (Synthroid, Levoxyl) tablet 75 mcg 75 mcg, oral, Daily before breakfast, First dose (after last modification) on Fri03/12/24 at 0700 0501 (Given - Provider: Kristi Del Castillo RN) 0613 (Given - Provider: Meg Lopez RN) 0532 (Given - Provider: Kristi Del Castillo RN) lidocaine (Xylocaine) 10 mg/mL (1 %) injection 5 mL 5 mL, infiltration, Once, On 03/15/24 at 0615, For 1 dose methadone (Dolophine) tablet 100 mg 100 mg, oral, Every 24 hours, First dose on Fri03/12/24 at 2100 0807 (Given - Provider: Marilia Valdes RN) 0818 (Given - Provider: Vee Garrido RN) 0814 (Given - Provider: Vee Garrido RN) methocarbamol (Robaxin) tablet 500 mg 500 mg, oral, Every 6 hours scheduled, First dose on Fri03/13/24 at 1200 0002 (Given - Provider: Kristi Del Castillo RN)0501 (Given - Provider: Kristi Del Castillo RN)1204 (Given - Provider: Marilia Valdes RN)1704 (Given - Provider: Trupti Yen RN) 0105 (Given - Provider: Meg Lopez RN)0613 (Given - Provider: Meg Lopez RN)1158 (Given - Provider: Vee Garrido RN)1807 (Given - Provider: Vee Garrido RN) 0005 (Given - Provider: Kristi Del Castillo RN)0532 (Given - Provider: Kristi Del Castillo RN)1116 (Given - Provider: Vee Garrido RN)1800 (Due) pantoprazole (ProtoNix) EC tablet 40 mg 40 mg, oral, Daily before breakfast, First dose on Fri03/12/24 at 0700, For 21 doses, Do not crush, chew, or split. 0501 (Given - Provider: Kristi Del Castillo RN) 0613 (Not Given - Provider: Meg Lopez RN - Reason: Patient/family refused) 0532 (Given - Provider: Kristi Del Castillo RN) polyethylene glycol (Glycolax, Miralax) packet 17 g 17 g, oral, Daily, First dose on Fri03/11/24 at 1930, Bowel Regimen - for prevention of constipation. 0806 (Not Given - Provider: Marilia Valdes RN - Reason: Patient/family refused) 0903 (Not Given - Provider: Vee Garrido RN - Reason: Other) 0815 (Not Given - Provider: Vee Garrido RN - Reason: Other) rifabutin (Mycobutin) capsule 300 mg 300 mg, oral, Daily, First dose on Fri03/14/24 at 1200, Suspected Indication (Select all that apply): Osteomyelitis/Septic Arthritis, Indications: Osteomyelitis/Septic Arthritis 0807 (Given - Provider: Marilia Valdes RN) 0819 (Given - Provider: Vee Garrido RN) 0814 (Given - Provider: Vee Garrido RN) sennosides (Senokot) tablet 17.2 mg 17.2 mg (2 tablet), oral, 2 times daily, First dose on Fri03/11/24 at 2100, Bowel Regimen - for prevention of constipation Hold for loose stools 08 (Not Given - Provider: Marilia Valdes RN - Reason: Patient/family refused)2019 (Not Given - Provider: Trupti Yen RN - Reason: Patient/family refused) 09 (Not Given - Provider: Vee Garrido RN - Reason: Other)2001 (Not Given - Provider: Kristi Del Castillo RN - Reason: Patient/family refused) 08 (Not Given - Provider: Vee Garrido RN - Reason: Medication not available)2099 (Due) sertraline (Zoloft) tablet 100 mg 100 mg, oral, Daily, First dose on Lexie 03/11/24 at 1930 0807 (Given - Provider: Marilia Valdes RN) 0818 (Given - Provider: Vee Garrido RN) 0814 (Given - Provider: Vee Garrido RN) Continuous Medication Order 03/16/2024 03/17/2024 03/18/2024 oxygen (O2) therapy 2 L/min, inhalation, Continuous, Starting on Lexie 03/11/24 at 1930, Titrate supplemental oxygen to maintain oxygen saturation greater than or equal to 92%., Device: Nasal Cannula, Rate in liters per minute: 2 LPM, Keep O2 Sat Above: 92% PRN Medication Order 03/16/2024 03/17/2024 03/18/2024 alteplase (Cathflo Activase) injection 2 mg 2 mg, intra-catheter, As needed, line care, Starting on Fri03/15/24 at 0554, Via PICC Line Removed by: Aspiration Inject into partial/totally occluded catheter lumen for total of 30 to 120 minute dwell time; assess patency at 30 minutes and if not patent, dwell for additional 90 minutes. If still not patent, repeat alteplase 2 mg injected into thrombotic partial or totally occluded lumen for a total of 120 minute dwell time; assess patency at 30 minutes and if not patent, dwell for 90 minutes. If still not patent, notify provider. Dilute each 2 mg vial with 2.2 mL sterile water to give 1 mg/mL final concentration. Swirl gently to mix; do not shake. baclofen (Lioresal) tablet 20 mg 20 mg, oral, 3 times daily PRN, muscle spasms, Starting on Lexie /23/25 at 1900 benzocaine-menthol (Cepastat Sore Throat) lozenge 1 lozenge 1 lozenge, Mouth/Throat, Every 4 hours PRN, sore throat, Starting on Fri03/11/24 at 1905 bisacodyl (Dulcolax) EC tablet 10 mg 10 mg, oral, Daily PRN, constipation, first line, Starting on Fri03/11/24 at 1902, 1st line for treatment of constipation - contact provider if no bowel movement in past 48 hours. Do not crush, chew, or split. bisacodyl (Dulcolax) suppository 10 mg 10 mg, rectal, Daily PRN, constipation, second line, Starting on Fri03/11/24 at 1902, 2nd line for treatment of constipation - contact provider if no bowel movement in past 48 hours. clonazePAM (KlonoPIN) tablet 0.5 mg 0.5 mg, oral, 3 times daily PRN, anxiety, Starting on Fri03/11/24 at 2056 0836 (Given - Provider: Marilia Valdes RN)1650 (Given - Provider: Trupti Yen RN) 0825 (Given - Provider: Vee Garrido, RAJAN)1606 (Given - Provider: Vee Garrido RN) 0005 (Given - Provider: Kristi Del Castillo RN)0819 (Given - Provider: Vee Garrido RN) HYDROmorphone (Dilaudid) injection 0.5 mg 0.5 mg, intravenous, Every 4 hours PRN, pain breakthrough, Starting on Fri03/11/24 at 1904 1647 (Given - Provider: Trupti Yen, RAJAN) naloxone (Narcan) injection 0.2 mg 0.2 mg, intravenous, Every 5 min PRN, respiratory depression, Starting on Fri03/11/24 at 1902, If respiratory rate is less than 8 breaths/minute or patient is difficult to arouse stop any narcotics and contact physician. Administer slow IV push. Repeat as ordered until patient's respiratory rate is greater than 12 breaths/minute. ondansetron (Zofran) injection 4 mg(Linked Group 1) 4 mg, intravenous, Every 8 hours PRN, nausea/vomiting, first line, Starting on Fri03/11/24 at 1902, 1st Line. Give IV if patient is unable to take orally. If inadequate response within 60 minutes, proceed to next-line agent for same PRN reason or contact provider if no further options ordered. When administering via IV Push, administer over 3-5 minutes. ondansetron ODT (Zofran-ODT) disintegrating tablet 4 mg(Linked Group 1) 4 mg, oral, Every 8 hours PRN, nausea/vomiting, first line, Starting on Lexie 03/11/24 at 1902, 1st Line. Patient should allow tablet to dissolve on tongue. Do not remove from blister pack until just before administering. If inadequate response within 60 minutes, proceed to next-line agent for same PRN reason or contact provider if no further options ordered. oxyCODONE (Roxicodone) immediate release tablet 10 mg 10 mg, oral, Every 4 hours PRN, pain severe (7-10), first line, Starting on Lexie 03/11/24 at 1904, If ordered PRN for pain, nurse is permitted to administer this medication for higher pain scores based on patient preference? Yes 0002 (Given - Provider: Kristi Del Castillo RN)0501 (Given - Provider: Kristi Del Castillo RN)1031 (Given - Provider: Marilia Valdes RN)1441 (Given - Provider: Marilia Valdes RN)1858 (Given - Provider: Trupti Yen RN) 0236 (Given - Provider: Meg Lopez RN)1808 (Given - Provider: Vee Garrido RN) 0005 (Given - Provider: Kristi Del Castillo RN)0532 (Given - Provider: Kristi Del Castillo RN)1116 (Given - Provider: Vee Garrido RN) oxyCODONE (Roxicodone) immediate release tablet 2.5 mg 2.5 mg, oral, Every 4 hours PRN, pain mild (1-3), first line, Starting on Lexie 03/11/24 at 1904, If ordered PRN for pain, nurse is permitted to administer this medication for higher pain scores based on patient preference? Yes oxyCODONE (Roxicodone) immediate release tablet 5 mg 5 mg, oral, Every 4 hours PRN, pain moderate (4-6), first line, Starting on Lexie 03/11/24 at 1904, If ordered PRN for pain, nurse is permitted to administer this medication for higher pain scores based on patient preference? Yes 0814 (Given - Provider: Vee Garrido RN)1415 (Given - Provider: Vee Garrido RN) promethazine (Phenergan) suppository 25 mg(Linked Group 2) 25 mg, rectal, Every 12 hours PRN, nausea/vomiting, second line, Starting on Lexie 03/11/24 at 1902, 2nd Line. Give MD if patient is unable to take orally. If inadequate response within 60 minutes, proceed to next-line agent for same PRN reason or contact provider if no further options ordered. promethazine (Phenergan) tablet 25 mg(Linked Group 2) 25 mg, oral, Every 6 hours PRN, nausea/vomiting, second line, Starting on Lexie 03/11/24 at 1902, 2nd Line. If inadequate response within 60 minutes, proceed to next-line agent for same PRN reason or contact provider if no further options ordered. Linked Groups Order Group 1: ondansetron ODT (Zofran-ODT) disintegrating tablet 4 mgJump to med 4 mg, oral, Every 8 hours PRN, nausea/vomiting, first line, Starting on Lexie 03/11/24 at 1902, 1st Line. Patient should allow tablet to dissolve on tongue. Do not remove from blister pack until just before administering. If inadequate response within 60 minutes, proceed to next-line agent for same PRN reason or contact provider if no further options ordered. Or ondansetron (Zofran) injection 4 mgJump to med 4 mg, intravenous, Every 8 hours PRN, nausea/vomiting, first line, Starting on Lexie 03/11/24 at 1902, 1st Line. Give IV if patient is unable to take orally. If inadequate response within 60 minutes, proceed to next-line agent for same PRN reason or contact provider if no further options ordered. When administering via IV Push, administer over 3-5 minutes. Group 2: promethazine (Phenergan) tablet 25 mgJump to med 25 mg, oral, Every 6 hours PRN, nausea/vomiting, second line, Starting on Lexie 03/11/24 at 1902, 2nd Line. If inadequate response within 60 minutes, proceed to next- line agent for same PRN reason or contact provider if no further options ordered. Or promethazine (Phenergan) suppository 25 mgJump to med 25 mg, rectal, Every 12 hours PRN, nausea/vomiting, second line, Starting on Lexie 03/11/24 at 1902, 2nd Line. Give MD if patient is unable to take orally. If inadequate response within 60 minutes, proceed to next-line agent for same PRN reason or contact provider if no further options ordered. Scheduled Medication Order 03/30/2024 03/31/2024 04/01/2024 acetaminophen (Tylenol) tablet 975 mg 975 mg (rounded from 1,000 mg), oral, Every 8 hours scheduled, First dose on Fri03/26/24 at 0000, For 28 doses, If ordered PRN for pain, nurse is permitted to administer this medication for higher pain scores based on patient preference? Yes 0435 (Given - Provider: Laura Coates RN)1314 (Given - Provider: Shivam Faulkner RN)2016 (Given - Provider: Karishma East RN) 0510 (Given - Provider: Karishma East RN)1223 (Given - Provider: Ramírez Croft, RAJAN)2101 (Given - Provider: Mare Carlton, RAJAN) 0413 (Given - Provider: Mare Carlton RN)1300 (Due)2100 (Due) aspirin chewable tablet 81 mg 81 mg, oral, Daily, First dose on Fri03/26/24 at 1330, For 30 days 0833 (Given - Provider: Shivam Faulkner RN) 0820 (Given - Provider: Ramírez Croft, RAJAN) 0847 (Given - Provider: Ana Armendariz RN) bisacodyl (Dulcolax) suppository 10 mg (COMPLETED) 10 mg, rectal, Once, On Fri03/30/24 at 0045, For 1 dose 0045 (Given - Provider: Laura Coates RN) buPROPion SR (Wellbutrin SR) 12 hr tablet 150 mg 150 mg, oral, Every 12 hours scheduled (0630,1830), First dose on Fri03/26/24 at 0900, Do not crush, chew, or split. 0701 (Given - Provider: Laura Coates RN)1743 (Given - Provider: Shivam Faulkner, RAJAN) 0510 (Given - Provider: Karishma East RN)1721 (Given - Provider: Ramírez Croft RN) 0558 (Given - Provider: Mare Carlton RN)1830 (Due) cefTRIAXone (Rocephin) 2 g in dextrose (iso) IV 50 mL 2 g, intravenous, at 100 mL/hr, Administer over 30 Minutes, Every 12 hours, First dose on Fri03/29/24 at 1200, premix bag, Suspected Indication (Select all that apply): Cellulitis, Skin and Soft Tissue, Indications: Cellulitis, Skin and Soft Tissue 0021 (New Bag - Provider: Laura Coates RN)0128 (Stopped - Provider: Laura Coates RN)1153 (New Bag - Provider: Shivam Faulkner RN)1205 (Stopped - Provider: Shivam Faulkner RN) 0013 (New Bag - Provider: Karishma East RN)0136 (Stopped - Provider: Karishma East RN)1223 (New Bag - Provider: Ramírez Croft RN)1253 (Stopped - Provider: Ramírez Croft RN)2321 (New Bag - Provider: Mare Carlton, RAJAN)2358 (Stopped - Provider: Mare Carlton RN) 1152 (New Bag - Provider: Ana Armendariz, RAJAN)1224 (Stopped - Provider: Ana Armendariz, RAJAN) cloNIDine (Catapres) tablet 0.1 mg 0.1 mg, oral, 3 times daily, First dose on Fri03/26/24 at 0000, On hold since Fri03/26/2024 at 0123 until manually unheld 0900 (Canceled Entry - Provider: Shivam Faulkner RN - Comment: held by provider)1500 (Canceled Entry - Provider: Shivam Faulkner RN - Comment: held by provider)2100 (Not Given - Provider: Karishma East RN - Reason: See Provider Order) 0808 (Canceled Entry - Provider: Ramírez Croft RN)1416 (Canceled Entry - Provider: Ramírez Croft RN)2100 (Not Given - Provider: Mare Carlton RN - Reason: See Provider Order) 0900 (Not Given - Provider: Ana Armendariz RN - Reason: See Provider Order)1500 (Dose Auto Held)2100 (Dose Auto Held) docusate sodium (Colace) capsule 100 mg 100 mg, oral, 2 times daily, First dose on Fri03/26/24 at 0000, Phase II/On Unit, Bowel Regimen - for prevention of constipation Hold for loose stools 0835 (Not Given - Provider: Shivam Faulkner RN - Reason: Patient/family refused - Comment: multiple bowel movements)2015 (Not Given - Provider: Karishma East RN - Reason: Patient/family refused) 0808 (Not Given - Provider: Ramírez Croft RN - Reason: Patient/family refused)2035 (Not Given - Provider: Mare Carlton RN - Reason: Patient/family refused) 0828 (Not Given - Provider: Ana Armendariz RN - Reason: Patient/family refused)2100 (Due) enoxaparin (Lovenox) syringe 40 mg 40 mg, subcutaneous, Daily, First dose on Fri03/30/24 at 0900 0832 (Given - Provider: Shivam Faulkner RN) 0821 (Given - Provider: Ramírez Croft RN) 0847 (Given - Provider: Ana Armendariz RN) gabapentin (Neurontin) capsule 300 mg 300 mg, oral, 3 times daily, First dose on Fri03/26/24 at 0000, Capsules may be opened and sprinkled on food (eg, applesauce, orange juice, pudding). Capsules may be opened and sprinkled on food (eg, applesauce, orange juice, pudding 0833 (Given - Provider: Shivam Faulkner RN)1314 (Given - Provider: Shivam Faulkner RN - Comment: patient request)2015 (Given - Provider: Karishma East RN) 0820 (Given - Provider: Ramírez Croft RN)1406 (Given - Provider: Ramírez Croft RN)2102 (Given - Provider: Mare Carlton RN) 0847 (Given - Provider: Ana Armendariz RN)1500 (Due)2100 (Due) ketorolac (Toradol) injection 15 mg (COMPLETED) 15 mg, intravenous, Once, On Fri03/31/24 at 1430, For 1 dose 1428 (Given - Provider: Ramírez Croft RN) ketorolac (Toradol) injection 30 mg (COMPLETED) 30 mg, intravenous, Once, On Fri03/31/24 at 0300, For 1 dose 0259 (Given - Provider: Karishma East RN) levETIRAcetam (Keppra) tablet 500 mg 500 mg, oral, 2 times daily, First dose on Fri03/26/24 at 0000 0833 (Given - Provider: Shivam Faulkner RN)2015 (Given - Provider: Karishma East RN) 0820 (Given - Provider: Ramírez Croft RN)210 (Given - Provider: Mare Carlton RN) 0847 (Given - Provider: Ana Armendariz RN)2100 (Due) levothyroxine (Synthroid, Levoxyl) tablet 75 mcg 75 mcg, oral, Every morning, First dose on Fri03/26/24 at 0900 0833 (Given - Provider: Shivam Faulkner RN) 0821 (Given - Provider: Ramírez Croft RN) 0847 (Given - Provider: Ana Armendariz RN) lidocaine 4 % patch 1 patch 1 patch, transdermal, Administer over 12 Hours, Daily, First dose on Fri03/30/24 at 0900, Apply to back. Patch will remain on for 12 hours, then removed for [address] patch directly over any surgical incisions or wounds. 0834 (Medication Applied - Provider: Shivam Faulkner RN)2016 (Medication Removed - Provider: Karishma East RN) 0830 (Not Given - Provider: Ramírez Croft RN - Reason: Patient/family refused) 0846 (Medication Applied - Provider: Ana Armendariz RN - Comment: lower back)2045 (Due: Medication Removed - Provider: Ana Armendariz RN) methadone (Dolophine) solution 115 mg 115 mg, oral, Daily, First dose on Fri03/26/24 at 0900 0834 (Given - Provider: Shivam Faulkner, RN) 0821 (Given - Provider: Ramírez Croft, RN) 0842 (Given - Provider: Ana Armendariz, RAJAN) methocarbamol (Robaxin) tablet 1,000 mg 1,000 mg, oral, Every 8 hours scheduled, First dose on Fri03/30/24 at 0715 0701 (Given - Provider: Laura Coates, RAJAN)1314 (Given - Provider: Shivam Faulkner, RN)2150 (Given - Provider: Karishma East, RN) 0510 (Given - Provider: Karishma East, RN)1405 (Given - Provider: Ramírez Croft, RAJAN)2101 (Given - Provider: Mare Carlton, RAJAN) 0557 (Given - Provider: Mare Carlton, RAJAN)1400 (Due)2200 (Due) pantoprazole (ProtoNix) EC tablet 40 mg(Linked Group 1) 40 mg, oral, Daily before breakfast, First dose on Fri04/01/24 at 0700, Do not crush, chew, or split. 0600 (Given - Provider: Mare Carlton, RAJAN) pantoprazole (ProtoNix) injection 40 mg(Linked Group 1) 40 mg, intravenous, Daily before breakfast, First dose on Fri04/01/24 at 0700, Give only if unable to tolerate po. 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, Suspected Indication (Select all that apply): Osteomyelitis/Septic Arthritis, Indications: Osteomyelitis/Septic Arthritis 0843 (Given - Provider: Shivam Faulkner RN) 0831 (Given - Provider: Ramírez Croft RN) 0847 (Given - Provider: Ana Armendariz, RAJAN) sertraline (Zoloft) tablet 100 mg 100 mg, oral, Daily, First dose on Fri03/26/24 at 0900 0833 (Given - Provider: Shivam Faulkner RN) 0821 (Given - Provider: Ramírez Croft RN) 0847 (Given - Provider: Ana Armendariz RN) PRN Medication Order 03/30/2024 03/31/2024 04/01/2024 baclofen (Lioresal) tablet 20 mg (CANCELED) 20 mg, oral, 3 times daily PRN, muscle spasms, Starting on Lexie 03/25/24 at 2335 0453 (Given - Provider: Laura Coates RN) clonazePAM (KlonoPIN) tablet 0.5 mg 0.5 mg, oral, 3 times daily PRN, anxiety, Starting on Fri03/26/24 at 0208 0701 (Given - Provider: Laura Coates RN)1500 (Given - Provider: Shivam Faulkner RN)202 (Given - Provider: Karishma East RN) 0835 (Given - Provider: Ramírez Croft RN)222 (Given - Provider: Mare Carlton RN) 0752 (Given - Provider: Ana Armendariz RN) HYDROmorphone PF (Dilaudid) injection 0.2 mg 0.2 mg, intravenous, Every 4 hours PRN, pain breakthrough, Starting on Lexie 03/25/24 at 2335, Phase II/On Unit 0045 (Given - Provider: Laura Coates RN)0501 (Given - Provider: Laura Caotes RN)0923 (Given - Provider: Shivam Faulkner RN)1500 (Given - Provider: Shivam Faulkner RN)2150 (Given - Provider: Karishma East RN) 0139 (Given - Provider: Karishma East RN)2218 (Given - Provider: Mare Carlton RN) 0412 (Given - Provider: Mare Carlton RN)0858 (Given - Provider: Ana Armendariz, RAJAN) melatonin tablet 3 mg 3 mg, oral, Nightly PRN, sleep, Starting on 03/27/24 at 1737 0106 (Given - Provider: Mare Carlton RN) metoclopramide (Reglan) injection 10 mg 10 mg, intravenous, Every 6 hours PRN, nausea/vomiting, second line, Starting on Lexie 03/25/24 at 2335, Phase II/On Unit ondansetron (Zofran) injection 4 mg(Linked Group 2) 4 mg, intravenous, Every 8 hours PRN, nausea/vomiting, first line, Starting on Lexie 03/25/24 at 2335, Phase II/On Unit, 1st Line. Give IV if patient is unable to take orally. If inadequate response within 60 minutes, proceed to next-line agent for same PRN reason or contact provider if no further options ordered. When administering via IV Push, administer over 3-5 minutes. 1054 (Given - Provider: Ramírez Croft RN) 0858 (Given - Provider: Ana Armendariz, RAJAN) ondansetron ODT (Zofran-ODT) disintegrating tablet 4 mg(Linked Group 2) 4 mg, oral, Every 8 hours PRN, nausea/vomiting, first line, Starting on Lexie 03/25/24 at 2335, Phase II/On Unit, 1st Line. Patient should allow tablet to dissolve on tongue. Do not remove from blister pack until just before administering. If inadequate response within 60 minutes, proceed to next-line agent for same PRN reason or contact provider if no further options ordered. 1054 (See Alternative - Provider: Ramírez Croft RN) 0858 (See Alternative - Provider: Ana Armendariz RN) oxyCODONE (Roxicodone) immediate release tablet 10 mg 10 mg, oral, Every 4 hours PRN, pain severe (7-10), first line, Starting on Lexie 03/25/24 at 2335, Phase II/On Unit, If ordered PRN for pain, nurse is permitted to administer this medication for higher pain scores based on patient preference? Yes 0331 (Given - Provider: Laura Coates RN)0738 (Given - Provider: Shivam Faulkner, RN)1153 (Given - Provider: Shivam Faulkner, RAJAN)1557 (Given - Provider: Shivam Faulkner, RAJAN)2017 (Given - Provider: Karishma East, RAJAN) 0019 (Given - Provider: Karishma East, RAJAN)0510 (Given - Provider: Karishma East, RAJAN)1054 (Given - Provider: Ramírez Croft, RN)1721 (Given - Provider: Ramírez Croft, RN)2122 (Given - Provider: Mare Carlton, RAJAN) 0248 (Given - Provider: Mare Carlton, RAJAN)0752 (Given - Provider: Ana Armendariz, RAJAN) oxyCODONE (Roxicodone) immediate release tablet 5 mg 5 mg, oral, Every 4 hours PRN, pain moderate (4-6), first line, Starting on Lexie 03/25/24 at 2335, Phase II/On Unit, If ordered PRN for pain, nurse is permitted to administer this medication for higher pain scores based on patient preference? Yes simethicone (Mylicon) chewable tablet 80 mg 80 mg, oral, 4 times daily PRN, flatulence, Starting on 03/26/24 at 2141 0701 (Given - Provider: Laura Coates RN) 2104 (Given - Provider: Mare Carlton, RAJAN) 0858 (Given - Provider: Ana Armendariz, RAJAN) white petrolatum (Aquaphor) ointment Topical, Every 1 hour PRN, dry skin, Starting on 03/27/24 at 0927, Apply to dry skin on face. Do not apply to free flap. Linked Groups Order Group 1: pantoprazole (ProtoNix) EC tablet 40 mgJump to med 40 mg, oral, Daily before breakfast, First dose on Lexie 04/01/24 at 0700, Do not crush, chew, or split. Or pantoprazole (ProtoNix) injection 40 mgJump to med 40 mg, intravenous, Daily before breakfast, First dose on Lexie 04/01/24 at 0700, Give only if unable to tolerate po. Group 2: ondansetron ODT (Zofran-ODT) disintegrating tablet 4 mgJump to med 4 mg, oral, Every 8 hours PRN, nausea/vomiting, first line, Starting on Lexie 03/25/24 at 2335, Phase II/On Unit, 1st Line. Patient should allow tablet to dissolve on tongue. Do not remove from blister pack until just before administering. If inadequate response within 60 minutes, proceed to next-line agent for same PRN reason or contact provider if no further options ordered. Or ondansetron (Zofran) injection 4 mgJump to med 4 mg, intravenous, Every 8 hours PRN, nausea/vomiting, first line, Starting on Lexie 03/25/24 at 2335, Phase II/On Unit, 1st Line. Give IV if patient is unable to take orally. If inadequate response within 60 minutes, proceed to next-line agent for same PRN reason or contact provider if no further options ordered. When administering via IV Push, administer over 3-5 minutes. Scheduled Medication Order 05/10/2024 05/11/2024 05/12/2024 acetaminophen (Tylenol) tablet 975 mg 975 mg, oral, Every 8 hours, First dose on Fri05/05/24 at 2130, Phase II/On Unit, Time 3 hrs between tylenol and toradol, If ordered PRN for pain, nurse is permitted to administer this medication for higher pain scores based on patient preference? Yes 0601 (Given - Provider: Marion Hwang RN)1302 (Given - Provider: Linda Banks RN)222 (Given - Provider: Mya Sharpe RN) 06 (Given - Provider: Mya Sharpe RN)141 (Given - Provider: Nicole Chery RN)2119 (Given - Provider: Kristi Del Castillo, RN) 0618 (Given - Provider: Mya Sharpe RN)141 (Given - Provider: Vee Garrido RN)2031 (Given - Provider: Kritsi Del Castillo, RAJAN) apixaban (Eliquis) tablet 10 mg 10 mg, oral, 2 times daily, First dose on Fri05/11/24 at 0900, For 7 days 0900 (Given - Provider: Nicole Chery RN)2119 (Given - Provider: Kristi Del Castillo RN) 0844 (Given - Provider: Vee Garrido RN)2031 (Given - Provider: Kristi Del Castillo RN) buPROPion SR (Wellbutrin SR) 12 hr tablet 150 mg 150 mg, oral, Every 12 hours scheduled (0630,1830), First dose on Fri04/26/24 at 0630, Do not crush, chew, or split. 0826 (Given - Provider: Linda Banks RN)2023 (Given - Provider: Mya Sharpe RN) 09 (Not Given - Provider: Nicole Chery RN - Reason: Medication not available)2118 (Given - Provider: Kristi Del Castillo RN) 0845 (Given - Provider: Vee Garrido RN)2031 (Given - Provider: Kristi Del Castillo RN) clonazePAM (KlonoPIN) tablet 0.5 mg 0.5 mg, oral, 3 times daily, First dose on Fri04/26/24 at 0900 0826 (Given - Provider: Linda Banks RN)153 (Given - Provider: Linda Banks RN)2023 (Given - Provider: Mya Sharpe, RAJAN) 09 (Given - Provider: Nicole Chery RN)141 (Given - Provider: Nicole Chery RN)2119 (Given - Provider: Kristi Del Castillo RN) 08 (Given - Provider: Vee Garrido RN)141 (Given - Provider: Vee Garrido RN)2031 (Given - Provider: Kristi Del Castillo RN) cloNIDine (Catapres) tablet 0.1 mg 0.1 mg, oral, 3 times daily, First dose on Fri04/26/24 at 0900, Hold if sBP < 100 or HR < 60 0826 (Given - Provider: Linda Banks RN)153 (Given - Provider: Linda Banks RN)2247 (Not Given - Provider: Mya Sharpe RN - Reason: Medication not available) 0900 (Given - Provider: Nicole Chery RN)141 (Given - Provider: Nicole Chery RN)2118 (Given - Provider: Kristi Del Castillo RN) 0845 (Given - Provider: Vee Garrido RN)1418 (Given - Provider: Vee Garrido RN)2031 (Given - Provider: Kristi Del Castillo RN) DAPTOmycin (Cubicin) 600 mg in sodium chloride 0.9% 50 mL IV 600 mg (rounded from 614.4 mg = 8 mg/kg 76.8 kg Adjusted weight), intravenous, at 124 mL/hr, Administer over 30 Minutes, Every 24 hours, First dose on Fri05/07/24 at 1800, For 10 days, Suspected Indication (Select all that apply): Cellulitis, Skin and Soft Tissue, Type of Therapy: Empiric, Indications: Cellulitis, Skin and Soft Tissue 1854 (New Bag - Provider: Linda Banks RN)1952 (Stopped - Provider: Mya Sharpe RN) 1911 (New Bag - Provider: Vianey Kunz RN)1941 (Stopped - Provider: Vianey Kunz RN) 1821 (New Bag - Provider: Vee Garrido RN)1943 (Stopped - Provider: Kristi Del Castillo RN) levETIRAcetam (Keppra) tablet 500 mg 500 mg, oral, 2 times daily, First dose on Fri04/26/24 at 0130 0826 (Given - Provider: Linda Banks RN)2023 (Given - Provider: Mya Sharpe RN) 0900 (Given - Provider: Nicole Chery RN)2119 (Given - Provider: Kristi Del Castillo RN) 0844 (Given - Provider: Vee Garrido RN)2032 (Given - Provider: Kristi Del Castillo RN) levothyroxine (Synthroid, Levoxyl) tablet 75 mcg 75 mcg, oral, Every morning, First dose on Fri04/26/24 at 0900, Enteral feedings are held 1 hour pre and post dose. 0826 (Given - Provider: Linda Banks RN) 0900 (Given - Provider: Nicole Chery RN) 0844 (Given - Provider: Vee Garrido RN) lidocaine (Xylocaine) 10 mg/mL (1 %) injection 5 mL 5 mL, infiltration, Once, On 05/08/24 at 1015, For 1 dose lidocaine (Xylocaine) 10 mg/mL (1 %) injection 5 mL 5 mL, infiltration, Once, On Fri05/11/24 at 1345, For 1 dose 1345 (Due) methadone (Dolophine) solution 115 mg 115 mg, oral, Daily, First dose on Fri04/28/24 at 1100, Indication for use: Opioid use disorder, History: Continuation of therapy 0917 (Given - Provider: Linda Banks RN) 0900 (Given - Provider: Nicole Chery RN) 0846 (Given - Provider: Vee Garrido RN) methocarbamol (Robaxin) tablet 1,000 mg 1,000 mg, oral, Every 8 hours scheduled, First dose on Fri05/07/24 at 0645 0602 (Given - Provider: Marion Hwang RN)1302 (Given - Provider: Linda Banks RN)2221 (Given - Provider: Mya Sharpe RN) 0612 (Given - Provider: Mya Sharpe RN)1417 (Given - Provider: Nicole Chery RN)2120 (Given - Provider: Kristi Del Castillo, RAJAN) 0618 (Given - Provider: Mya Sharpe RN)1419 (Given - Provider: Vee Garrido, RAJAN)2300 (Due - Provider: Kristi Del Castillo RN) micafungin (Mycamine) 100 mg in dextrose 5% IV 100 mL 100 mg, intravenous, at 100 mL/hr, Administer over 60 Minutes, Every 24 hours, First dose on Fri05/07/24 at 1700, For 14 doses, Flush line with NS prior to administration. Mini-Bag Plus/ADD-[place] bag, Coverage: [place], Non-albicans, Infection Site: Other, Specify: Surgical wound from donor graft site 1606 (New Bag - Provider: Linda Banks RN)1609 (Stopped - Provider: Linda Banks RN) 2231 (New Bag - Provider: Vianey Kunz RN - Comment: off schedule because nurse unavailable at scheduled time. patient was given other antibotics first because they were 30 minutes duration.)2354 (Stopped - Provider: Mya Sharpe RN) 2300 (Due - Provider: Kristi Del Castillo RN) nystatin (Mycostatin) cream Topical, 2 times daily, First dose on Lexie 04/29/24 at 2100, Apply to perineal rash 0827 (Given - Provider: Linda Banks RN)2029 (Given - Provider: Mya Sharpe RN) 09 (Given - Provider: Nicole Chery, RAJAN)2133 (Given - Provider: Kristi Del Castillo, RN) 0850 (Given - Provider: Vee Garrido RN)2032 (Not Given - Provider: Kristi Del Castillo RN - Reason: Patient/family refused) pantoprazole (ProtoNix) EC tablet 40 mg 40 mg, oral, Daily before breakfast, First dose on 04/26/24 at 0700, Do not crush, chew, or split. 0602 (Given - Provider: Marion Hwang RN) 0612 (Given - Provider: Mya Sharpe RN) 0618 (Given - Provider: Mya Sharpe RN) piperacillin-tazobactam (Zosyn) 3.375 g in dextrose (iso) IV 50 mL 3.375 g, intravenous, Administer over 0.5 Hours, Every 6 hours, First dose on 05/01/24 at 1130, premix bag, Dosing of this medication varies based on severity of illness. Does this patient have sepsis or concern for sepsis (probable or documented infection plus systemic manifestations of infection)? No, Suspected Indication (Select all that apply): Surgical Wound Infection, Indications: Surgical Wound Infection 0016 (New Bag - Provider: Marion Hwang RN)0136 (Stopped - Provider: Marion Hwang RN)0601 (New Bag - Provider: Marion Hwang RN)0723 (Stopped - Provider: Marion Hwang RN)1244 (New Bag - Provider: Linda Banks RN - Comment: lost iv access)1245 (Stopped - Provider: Linda Banks RN)1646 (New Bag - Provider: Linda Banks RN)1648 (Stopped - Provider: Linda Banks RN)2307 (New Bag - Provider: Mya Sharpe RN)2340 (Stopped - Provider: Mya Sharpe RN) 0612 (New Bag - Provider: Mya Sharpe RN)0743 (Stopped - Provider: Nicloe Chery RN)1030 (New Bag - Provider: Nicole Chery RN)1123 (Stopped - Provider: Nicole Chery RN)1810 (New Bag - Provider: Vianey Kunz RN)1840 (Stopped - Provider: Vianey Kunz RN)2357 (New Bag - Provider: Mya Sharpe RN) 0034 (Stopped - Provider: Mya Sharpe RN)0618 (New Bag - Provider: Mya Sharpe RN)0725 (Stopped - Provider: Vee Garrido RN)1110 (New Bag - Provider: Vee Garrido RN)1137 (Stopped - Provider: Vee Garrido RN)1820 (New Bag - Provider: Vee Garrido RN)1841 (Stopped - Provider: Vee Garrido RN)2330 (Due) polyethylene glycol (Glycolax, Miralax) packet 17 g 17 g, oral, Daily, First dose on Fri05/06/24 at 0900, Phase II/On Unit, Bowel Regimen - for prevention of constipation. 0827 (Not Given - Provider: Linda Banks RN - Reason: Patient/family refused) 0901 (Not Given - Provider: Nicole Chery RN - Reason: Patient/family refused) 0850 (Not Given - Provider: Vee Garrido RN - Reason: Patient/family refused) pregabalin (Lyrica) capsule 100 mg 100 mg, oral, 2 times daily, First dose on Fri05/06/24 at 2130 0826 (Given - Provider: Linda Banks RN)2023 (Given - Provider: Mya Sharpe RN) 09 (Given - Provider: Nicole Chery RN)2119 (Given - Provider: Kristi Del Castillo, RAJAN) 0844 (Given - Provider: Vee Garrido RN)2031 (Given - Provider: Kristi Del Castillo RN) sennosides-docusate sodium (Kelly-Colace) 8.6-50 mg per tablet 2 tablet 2 tablet, oral, 2 times daily, First dose on Fri05/05/24 at 2130, Phase II/On Unit, Bowel Regimen - for prevention of constipation Hold for loose stools 0827 (Not Given - Provider: Linda Jocelyn, RN - Reason: Patient/family refused)2024 (Not Given - Provider: Mya Sharpe RN - Reason: Patient/family refused) 0900 (Given - Provider: Nicole Chery RN)2119 (Not Given - Provider: Kristi Del Castillo RN - Reason: Patient/family refused) 0844 (Not Given - Provider: Vee Garrido RN - Reason: Patient/family refused)2032 (Not Given - Provider: Kristi Del Castillo RN - Reason: Patient/family refused) sertraline (Zoloft) tablet 100 mg 100 mg, oral, Daily, First dose on Fri04/26/24 at 0900 0826 (Given - Provider: Linda Banks RN) 0900 (Given - Provider: Nicole Chery RN) 0850 (Given - Provider: Vee Garrido RN) sulfamethoxazole-trimeth oprim (Bactrim DS) 800-160 mg per tablet 2 tablet 2 tablet, oral, Every 8 hours, First dose (after last modification) on Fri04/26/24 at 2200, Suspected Indication (Select all that apply): Osteomyelitis/Septic Arthritis, Indications: Osteomyelitis/Septic Arthritis 0016 (Given - Provider: Marion Hwang RN)0826 (Given - Provider: Linda Banks RN)1531 (Given - Provider: Linda Banks RN)2307 (Given - Provider: Mya Sharpe RN) 0900 (Given - Provider: Nicole Chery RN)1822 (Given - Provider: Vianey Kunz RN) 0208 (Given - Provider: Mya Sharpe RN)1001 (Given - Provider: Vee Garrido RN)1822 (Given - Provider: Vee Garrido RN) white petrolatum (Aquaphor) ointment Topical, Daily, First dose on Fri04/26/24 at 1700, Apply to generalized body skin for dryness, avoid application to lower extremity wound sites, can be applied around dressings. 0827 (Given - Provider: Linda Banks RN) 0901 (Given - Provider: Nicole Chery RN) 0915 (Not Given - Provider: Vee Garrido RN - Reason: Other) Continuous Medication Order 05/10/2024 05/11/2024 05/12/2024 heparin 25,000 Units in dextrose 5% 250 mL (100 Units/mL) infusion (premix) (CANCELED) 0-4,500 Units/hr (0-45 mL/hr), intravenous, Continuous, Starting on Fri05/09/24 at 1800, Until Fri05/11/24 at 0607, High Intensity Heparin Protocol (70-124kg) Initial Dose: 18 units/kg/hr --> Use heparin calculator for units/hr rate Maximum Initial Dose: 2000 units/hr Recheck Heparin Assay, UFH level 4 hours after any rate change, or per protocol. Titration Table: Heparin Assay, UFH < 0.1: INCREASE rate by 300 units/hr. Heparin Assay, UFH 0.1 to 0.2: INCREASE rate by 200 units/hr. Heparin Assay, UFH 0.3 to 0.7: (THERAPEUTIC) DO NOT CHANGE Infusion Rate. Heparin Assay, UFH 0.8 to 1: DECREASE rate by 200 unit/hour. Heparin Assay, UFH 1.1 to 1.2: HOLD heparin infusion for 1 hour, then DECREASE rate by 200 units/hour. Heparin Assay, UFH > 1.2: HOLD heparin infusion for 1 hour, then recheck heparin assay: *If repeat is > 0.7, continue to HOLD INFUSION. -Confirm last draw was performed correctly (pump was paused for a minimum of 2 minutes, sample NOT drawn off line/lumen where medication was infusing) -Contact provider for further orders. *If repeat is < or = 0.7, REDUCE previous infusion rate by 300 units/hour and restart infusion. -Recheck Heparin Assay, UFH in 4 hours after dose reduction. -Resume nomogram 0223 (Rate/Dose Change - Provider: Marion Hwang RN)0533 (New Bag - Provider: Derek Arceo RN)0800 (Handoff - Provider: Marion Hwang RN)0801 (Rate/Dose Verify - Provider: Linda Banks RN - Comment: thera x1)1400 (New Bag - Provider: Linda Banks RN)1928 (Handoff - Provider: Linda Banks RN) 0035 (New Bag - Provider: Mya Sharpe RN)0616 (Stopped - Provider: Mya Sharpe RN)0719 (Handoff - Provider: Nicole Chery RN - Comment: to be stopped when eliquis is given)0903 (Stopped - Provider: Nicole Chery RN) oxygen (O2) therapy 2 L/min, inhalation, Continuous, Starting on Fri05/05/24 at 2130, Phase II/On Unit, Titrate supplemental oxygen to maintain oxygen saturation greater than or equal to 92%. Okay to dc if not needed. , Device: Nasal Cannula, Rate in liters per minute: 2 LPM, Keep O2 Sat Above: 92% PRN Medication Order 05/10/2024 05/11/2024 05/12/2024 bisacodyl (Dulcolax) suppository 10 mg 10 mg, rectal, Daily PRN, constipation, second line, Starting on Fri05/05/24 at 2112, Phase II/On Unit, 2nd line for treatment of constipation - contact provider if no bowel movement in past 48 hours. famotidine (Pepcid) tablet 20 mg 20 mg, oral, Daily PRN, heartburn, Starting on Fri04/26/24 at 0115 HYDROmorphone (Dilaudid) injection 0.4 mg 0.4 mg, intravenous, Every 4 hours PRN, pain breakthrough, Starting on Fri05/05/24 at 2112, Phase II/On Unit 2311 (Given - Provider: Mya Sharpe RN) magnesium hydroxide (Milk of Magnesia) 400 mg/5 mL suspension 30 mL 30 mL, oral, Daily PRN, constipation, first line, Starting on Fri05/05/24 at 2112, Phase II/On Unit, Contact provider if no bowel movement in past 48 hours. Follow administration with 8 ounces of water. naloxone (Narcan) injection 0.2 mg 0.2 mg, intravenous, Every 5 min PRN, respiratory depression, Starting on Fri05/05/24 at 2112, Phase II/On Unit, If respiratory rate is less than 8 breaths/minute or patient is difficult to arouse stop any narcotics and contact physician. Administer slow IV push. Repeat as ordered until patient's respiratory rate is greater than 12 breaths/minute. nystatin (Mycostatin) 100,000 unit/gram powder 1 Application 1 Application, Topical, 2 times daily PRN, itching, redness in skin folds, Starting on Fri05/11/24 at 1909, Apply to affected areas ondansetron (Zofran) injection 4 mg(Linked Group 1) 4 mg, intravenous, Every 8 hours PRN, nausea/vomiting, first line, Starting on Fri05/05/24 at 2112, Phase II/On Unit, 1st Line. Give IV if patient is unable to take orally. If inadequate response within 60 minutes, proceed to next-line agent for same PRN reason or contact provider if no further options ordered. When administering via IV Push, administer over 3-5 minutes. ondansetron (Zofran) tablet 4 mg(Linked Group 1) 4 mg, oral, Every 8 hours PRN, nausea/vomiting, first line, Starting on Fri05/05/24 at 211, Phase II/On Unit, 1st Line. Use oral route first, if possible. If inadequate response within 60 minutes, proceed to next-line agent for same PRN reason or contact provider if no further options ordered. oxyCODONE (Roxicodone) immediate release tablet 12.5 mg 12.5 mg, oral, Every 4 hours PRN, pain severe (7-10), first line, Starting on Fri05/07/24 at 0622, Phase II/On Unit, If ordered PRN for pain, nurse is permitted to administer this medication for higher pain scores based on patient preference? Yes 0100 (Given - Provider: Marion Hwang RN)0735 (Given - Provider: Marion Hwang RN)2022 (Given - Provider: Mya Sharpe, RN) 1030 (Given - Provider: Nicole Chery RN)2119 (Given - Provider: Kristi Del Castillo, RAJAN) 021 (Given - Provider: Mya Sharpe RN)0617 (Given - Provider: Mya Sharpe RN)1110 (Given - Provider: Vee Garrido RN)1550 (Given - Provider: Vee Garrido RN)2031 (Given - Provider: Kristi Del Castillo RN) oxyCODONE (Roxicodone) immediate release tablet 7.5 mg 7.5 mg, oral, Every 4 hours PRN, pain moderate (4-6), first line, Starting on Fri05/07/24 at 0622, Phase II/On Unit, If ordered PRN for pain, nurse is permitted to administer this medication for higher pain scores based on patient preference? Yes prochlorperazine (Compazine) injection 10 mg(Linked Group 2) 10 mg, intravenous, Every 6 hours PRN, nausea/vomiting, second line, Starting on Fri05/05/24 at 2111, Phase II/On Unit, Give IV if patient is unable to take orally. prochlorperazine (Compazine) suppository 25 mg(Linked Group 2) 25 mg, rectal, Every 12 hours PRN, nausea/vomiting, second line, Starting on Fri05/05/24 at 2111, Phase II/On Unit, 2nd Line. Give MD if patient is unable to take orally or receive by injection. If inadequate response within 60 minutes, proceed to next-line agent for same PRN reason or contact provider if no further options ordered. prochlorperazine (Compazine) tablet 10 mg(Linked Group 2) 10 mg, oral, Every 6 hours PRN, nausea/vomiting, second line, Starting on Fri05/05/24 at 2111, Phase II/On Unit, 2nd Line. If inadequate response within 60 minutes, proceed to next-line agent for same PRN reason or contact provider if no further options ordered. Linked Groups Order Group 1: ondansetron (Zofran) tablet 4 mgJump to med 4 mg, oral, Every 8 hours PRN, nausea/vomiting, first line, Starting on Fri05/05/24 at 2111, Phase II/On Unit, 1st Line. Use oral route first, if possible. If inadequate response within 60 minutes, proceed to next-line agent for same PRN reason or contact provider if no further options ordered. Or ondansetron (Zofran) injection 4 mgJump to med 4 mg, intravenous, Every 8 hours PRN, nausea/vomiting, first line, Starting on Fri05/05/24 at 211, Phase II/On Unit, 1st Line. Give IV if patient is unable to take orally. If inadequate response within 60 minutes, proceed to next-line agent for same PRN reason or contact provider if no further options ordered. When administering via IV Push, administer over 3-5 minutes. Group 2: prochlorperazine (Compazine) tablet 10 mgJump to med 10 mg, oral, Every 6 hours PRN, nausea/vomiting, second line, Starting on Fri05/05/24 at 2111, Phase II/On Unit, 2nd Line. If inadequate response within 60 minutes, proceed to next-line agent for same PRN reason or contact provider if no further options ordered. Or prochlorperazine (Compazine) injection 10 mgJump to med 10 mg, intravenous, Every 6 hours PRN, nausea/vomiting, second line, Starting on Fri05/05/24 at 2111, Phase II/On Unit, Give IV if patient is unable to take orally. Or prochlorperazine (Compazine) suppository 25 mgJump to med 25 mg, rectal, Every 12 hours PRN, nausea/vomiting, second line, Starting on Fri05/05/24 at 2111, Phase II/On Unit, 2nd Line. Give MD if patient is unable to take orally or receive by injection. If inadequate response within 60 minutes, proceed to next-line agent for same PRN reason or contact provider if no further options ordered. Care Teams (unrecognized sec tion and content) Endoscopy Technician Relationship Specialty Start Date End Date Bijan Elmore [address] [place] [address] PCP - General Family Medicine 02/18/20 Endoscopy Technician Relationship Specialty Start Date End Date Bijan Elmore [address] [place] [address] PCP - General Family Medicine 02/18/20 Endoscopy Technician Relationship Specialty Start Date End Date Bijan Elmore [address] [place] [address] PCP - General Family Medicine 02/18/20 Endoscopy Technician Relationship Specialty Start Date End Date Bijan Elmore MD [address] [place] [address] PCP - General Family Practice 06/05/15 Endoscopy Technician Relationship Specialty Start Date End Date Bijan Elmore MD [address] [facility] [place] [address] PCP - General Family Practice 06/05/15 Endoscopy Technician Relationship Specialty Start Date End Date Bijan Elmore MD [address] [place] [address], [place] [address] PCP - General Family Practice 06/05/15 Endoscopy Technician Relationship Specialty Start Date End Date Bijan Elmore MD [address] [place] [address], [place] [address] PCP - General Family Practice 06/05/15 Endoscopy Technician Relationship Specialty Start Date End Date Bijan Elmore MD [address] [place] [address] [place] [address] PCP - General Family Practice 06/05/15 Endoscopy Technician Relationship Specialty Start Date End Date Bijan Elmore MD [address] [place] [address], [place] [address] PCP - General Family Practice 06/05/15 Endoscopy Technician Relationship Specialty Start Date End Date Bijan Elmore MD [address] [place] [address], [place] [address] PCP - General Family Practice 06/05/15 Endoscopy Technician Relationship Specialty Start Date End Date Bijan Elmore MD [address] [place] [address], [place] [address] PCP - General Family Practice 06/05/15 Endoscopy Technician Relationship Specialty Start Date End Date Bijan Elmore MD [address] [place] [address], [place] [address] PCP - General Family Practice 06/05/15 Endoscopy Technician Relationship Specialty Start Date End Date Bijan Elmore MD [address] [place] [address], [place] [address] PCP - General Family Practice 06/05/15 Endoscopy Technician Relationship Specialty Start Date End Date Bijan Elmore MD [address] [place] [address], [place] [address] PCP - General Family Practice 06/05/15 Endoscopy Technician Relationship Specialty Start Date End Date Bijan Elmore MD [address] [place] [address], [place] [address] PCP - General Family Practice 06/05/15 Endoscopy Technician Relationship Specialty Start Date End Date Bijan Elmore MD [address] [place] [address], [place] [address] PCP - General Family Practice 06/05/15 Endoscopy Technician Relationship Specialty Start Date End Date Bijan Elmore MD [address] [place] [address], [place] [address] PCP - General Family Practice 06/05/15 Endoscopy Technician Relationship Specialty Start Date End Date Bijan Elmore MD [address] [place] [address], [place] [address] PCP - General Family Practice 06/05/15 Endoscopy Technician Relationship Specialty Start Date End Date Bijan Elmore MD [address] [place] [address], [place] [address] PCP - General Family Practice 06/05/15 Endoscopy Technician Relationship Specialty Start Date End Date Bijan Elmore MD [address] [place] [address], [place] [address] PCP - General Family Practice 06/05/15 Endoscopy Technician Relationship Specialty Start Date End Date Bijan Elmore MD [address] [place] [address], [place] [address] PCP - General Family Practice 06/05/15 Endoscopy Technician Relationship Specialty Start Date End Date Bijan Elmore MD [address] [facility] [place] [address] PCP - General Family Practice 06/05/15 Endoscopy Technician Relationship Specialty Start Date End Date Bijan Elmore MD [facility] [place] [address] PCP - General Family Practice 06/05/15 Endoscopy Technician Relationship Specialty Start Date End Date Bijan Elmore MD [address] [place] [address], [place] [address] PCP - General Family Practice 06/05/15 Endoscopy Technician Relationship Specialty Start Date End Date Bijan Elmore MD [address] [place] [address], [place] [address] PCP - General Family Practice 06/05/15 Endoscopy Technician Relationship Specialty Start Date End Date Bijan Elmore MD [address] [place] [address], [place] [address] PCP - General Family Practice 06/05/15 Endoscopy Technician Relationship Specialty Start Date End Date Bijan Elmore MD [address] [place] [address], [place] [address] PCP - General Family Practice 06/05/15 Endoscopy Technician Relationship Specialty Start Date End Date Bijan Elmore MD [address] [place] [address], [place] [address] PCP - General Family Practice 06/05/15 Endoscopy Technician Relationship Specialty Start Date End Date Bijan Elmore MD [address] [place] [address], [place] [address] PCP - General Family Practice 06/05/15 Endoscopy Technician Relationship Specialty Start Date End Date Bijan Elmore MD [address] [place] [address], [place] [address] PCP - General Family Practice 06/05/15 Endoscopy Technician Relationship Specialty Start Date End Date Bijan Elmore MD [address] [facility] [place] [address] PCP - General Family Practice 06/05/15 Endoscopy Technician Relationship Specialty Start Date End Date Bijan Elmore [address] [place] [address] PCP - General Family Medicine 02/18/20 Endoscopy Technician Relationship Specialty Start Date End Date Bijan Elmore MD [address] [place] [address] PCP - General Family Practice 06/05/15 Endoscopy Technician Relationship Specialty Start Date End Date Bijan Elmore MD [address] [place] [address] PCP - General Family Practice 06/05/15 Endoscopy Technician Relationship Specialty Start Date End Date Bijan Elmore MD [address] [place] [address] PCP - General Family Medicine 06/05/15 Endoscopy Technician Relationship Specialty Start Date End Date Bijan Elmore MD [address] [place] [address] PCP - General Family Medicine 06/05/15 Endoscopy Technician Relationship Specialty Start Date End Date Bijan Elmore MD [address] [facility] [place] [address] PCP - General Family Medicine 06/05/15 Endoscopy Technician Relationship Specialty Start Date End Date Bijan Elmore MD [address] [place] [address] PCP - General Family Medicine 06/05/15 Endoscopy Technician Relationship Specialty Start Date End Date Bijan Elmore MD [address] [facility] [place] [address] PCP - General Family Medicine 06/05/15 Endoscopy Technician Relationship Specialty Start Date End Date Bijan Elmore MD [address] [facility] [place] [address] PCP - General Family Medicine 06/05/15 Endoscopy Technician Relationship Specialty Start Date End Date Bijan Elmore MD [address] [facility] [place] [address] PCP - General Family Medicine 06/05/15 Endoscopy Technician Relationship Specialty Start Date End Date Bijan Elmore [address] [place] [address] PCP - General 02/18/20 Endoscopy Technician Relationship Specialty Start Date End Date Bijan Elmore MD [address] [facility] [place] [address] PCP - General Family Medicine 06/05/15 Endoscopy Technician Relationship Specialty Start Date End Date Bijan Elmore MD [address] [facility] [place] [address] PCP - General Family Medicine 06/05/15 Endoscopy Technician Relationship Specialty Start Date End Date Bijan Elmore MD [address] [facility] [place] [address] PCP - General Family Medicine 06/05/15 Endoscopy Technician Relationship Specialty Start Date End Date Bijan Elmore MD [address] [facility] [place] [address] PCP - General Family Medicine 06/05/15 Endoscopy Technician Relationship Specialty Start Date End Date Bijan Elmore MD [address] [facility] [place] [address] PCP - General Family Medicine 06/05/15 Endoscopy Technician Relationship Specialty Start Date End Date Bijan Elmore MD [address] [facility] [place], [place] [address] PCP - General Family Medicine 06/05/15 Endoscopy Technician Relationship Specialty Start Date End Date Bijan Elmore MD [address] [facility] [place] [address] PCP - General Family Medicine 06/05/15 Yactayo, Alicia, VIDEO ARCADE MANAGER Retort Fireman 10/17/22 Endoscopy Technician Relationship Specialty Start Date End Date Bijan Elmore MD [address] [facility] [place] [address] PCP - General Family Medicine 06/05/15 Yactayo, Alicia, VIDEO ARCADE MANAGER Retort Fireman 10/17/22 Endoscopy Technician Relationship Specialty Start Date End Date Bijan Elmore MD [address] [facility] [place] [address] PCP - General Family Medicine 06/05/15 Yactayo, Alicia, VIDEO ARCADE MANAGER Retort Fireman 10/17/22 Endoscopy Technician Relationship Specialty Start Date End Date Bijan Elmore MD [address] [facility] [place] [address] PCP - General Family Medicine 06/05/15 Yactayo, Alicia, VIDEO ARCADE MANAGER Retort Fireman 10/17/22 Endoscopy Technician Relationship Specialty Start Date End Date Bijan Elmore MD [address] [facility] [place] [address] PCP - General Family Medicine 06/05/15 Yactayo, Alicia, VIDEO ARCADE MANAGER Retort Fireman 10/17/22 Team Status: Active Member Role Status Dates Dr. Francisco Elmore MD Family Provider Active Dr. Francisco Elmore MD Primary Care Provider Active Team Status: Inactive Member Role Status Dates Dr. Francisco Elmore MD Primary Care Provider Active Dr. Abhi Quan MD Attending Provider, Referring P [email or web address] Active Endoscopy Technician Relationship Specialty Start Date End Date Bijan Elmore MD [address] [facility] [place] [address] PCP - General Family Medicine 06/05/15 Yactayo, Alicia, VIDEO ARCADE MANAGER Retort Fireman 10/17/22 Endoscopy Technician Relationship Specialty Start Date End Date Bijan Elmore MD [address] [facility] [place] [address] PCP - General Family Medicine 06/05/15 Yactayo, Alicia, VIDEO ARCADE MANAGER Retort Fireman 10/17/22 Endoscopy Technician Relationship Specialty Start Date End Date Bijan Elmore MD [address] [facility] [place] [address] PCP - General Family Medicine 06/05/15 Yactayo, Alicia, VIDEO ARCADE MANAGER Retort Fireman 10/17/22 Team Status: Active Member Role Status Dates Dr. Francisco Elmore MD Primary Care Provider Active HARMAN Mills Attending Provider, Other Provider A ctive Dr. Abhi Quan MD Referring Provider Active Team Status: Inactive Member Role Status Dates Dr. Francisco Elmore MD Primary Care Provider Active HARMAN Mills Attending Provider Active Dr. Abhi Quan MD Referring Provider Active Endoscopy Technician Relationship Specialty Start Date End Date Bijan Elmore MD [address] [facility] [place] [address] PCP - General Family Medicine 06/05/15 Yactayo, Alicia, VIDEO ARCADE MANAGER Retort Fireman 10/17/22 Endoscopy Technician Relationship Specialty Start Date End Date Bijan Elmore MD [address] [facility] [place] [address] PCP - General Family Medicine 06/05/15 Endoscopy Technician Relationship Specialty Start Date End Date Bijan Elmore MD [address] [facility] [place] [address] PCP - General Family Medicine 06/05/15 Endoscopy Technician Relationship Specialty Start Date End Date Bijan Elmore MD [address] [facility] [place] [address] PCP - General Family Medicine 06/05/15 Endoscopy Technician Relationship Specialty Start Date End Date Bijan Elmore MD [address] [facility] [place] [address] PCP - General Family Medicine 06/05/15 Endoscopy Technician Relationship Specialty Start Date End Date Bijan Elmore MD [address] [facility] [place] [address] PCP - General Family Medicine 06/05/15 Endoscopy Technician Relationship Specialty Start Date End Date Bijan Elmore MD [address] [facility] [place] [address] PCP - General Family Medicine 06/05/15 Endoscopy Technician Relationship Specialty Start Date End Date Bijan Elmore MD [address] [facility] [place] [address] PCP - General Family Medicine 06/05/15 Endoscopy Technician Relationship Specialty Start Date End Date Bijan Elmore MD [address] [facility] [place] [address] PCP - General Family Medicine 06/05/15 Endoscopy Technician Relationship Specialty Start Date End Date Bijan Elmore MD [address] [facility] [place] [address] PCP - General Family Medicine 06/05/15 Endoscopy Technician Relationship Specialty Start Date End Date Bijan Elmore MD [address] [facility] [place], [place] [address] PCP - General Family Medicine 06/05/15 Endoscopy Technician Relationship Specialty Start Date End Date Bijan Elmore MD [address] [facility] [place], [place] [address] PCP - General Family Medicine 06/05/15 Endoscopy Technician Relationship Specialty Start Date End Date Bijan Elmore MD [address] [facility] [place] [address] PCP - General Family Medicine 06/05/15 Endoscopy Technician Relationship Specialty Start Date End Date Generic Provider, [place] [address] PCP - General Metal Sander 08/22/23 Endoscopy Technician Relationship Specialty Start Date End Date Bijan Elmore MD [address] [facility] [place] [address] PCP - General Family Medicine 06/05/15 Endoscopy Technician Relationship Specialty Start Date End Date Bijan Elmore MD [address] [facility] [place] [address] PCP - General Family Medicine 06/05/15 Endoscopy Technician Relationship Specialty Start Date End Date Generic Provider, [place] [address] PCP - General Metal Sander 08/22/23 Endoscopy Technician Relationship Specialty Start Date End Date Bijan Elmore MD [address] [facility] [place] [address] PCP - General Family Medicine 06/05/15 Endoscopy Technician Relationship Specialty Start Date End Date Bijan Elmore MD [address] [facility] [place] [address] PCP - General Family Medicine 06/05/15 Endoscopy Technician Relationship Specialty Start Date End Date Bijan Elmore MD [address] [facility] [place] [address] PCP - General Family Medicine 12/30/23 Endoscopy Technician Relationship Specialty Start Date End Date Bijan Elmore MD [address] [facility] [place] [address] PCP - General Family Medicine 06/05/15 Cheryl Araujo, ENGINE WATCHMAN.HAND PLUG SHAPER [address] [place] [address] Vending Machine Technician Internal Medicine 01/25/24 Endoscopy Technician Relationship Specialty Start Date End Date Bijan Elmore MD [address] [place] [address] PCP - General Family Medicine 06/05/15 Cheryl Araujo, ENGINE WATCHMAN.HAND PLUG SHAPER [address] [facility] [place] [address] Vending Machine Technician Internal Medicine 01/25/24 Endoscopy Technician Relationship Specialty Start Date End Date Bijan Elmore MD [address] [place] [address] PCP - General Family Medicine 06/05/15 Cheryl Araujo ENGINE WATCHMAN.HAND PLUG SHAPER [address] [place] [address] [address] [place], [place] [address] Vending Machine Technician Internal Medicine 01/25/24 Endoscopy Technician Relationship Specialty Start Date End Date Generic Provider, No Assigned Pcp, [place] [address] PCP - General Metal Sander 08/22/23 Endoscopy Technician Relationship Specialty Start Date End Date Bijan Elmore MD [address] [place], [place] 131961 PCP - General Family Medicine 06/05/15 Cheryl Araujo APRN.HAND PLUG SHAPER [address] [place] [address] [address] [place], [place] [address] Vending Machine Technician Internal Medicine 01/25/24 Endoscopy Technician Relationship Specialty Start Date End Date Bijan Elmore [address] [place] [address] PCP - General 02/18/20 Endoscopy Technician Relationship Specialty Start Date End Date Bijan Elmore [address] [place] [address] PCP - General 02/18/20 Endoscopy Technician Relationship Specialty Start Date End Date Bijan Elmore [address] [place] [address] PCP - General 02/18/20 Endoscopy Technician Relationship Specialty Start Date End Date Bijan Elmore [address] [place] [address] PCP - General 02/18/20 Endoscopy Technician Relationship Specialty Start Date End Date Bijan Elmore [address] [place] [address] PCP - General 02/18/20 Endoscopy Technician Relationship Specialty Start Date End Date Bijan Elmore [address] [place] [address] PCP - General 02/18/20 Endoscopy Technician Relationship Specialty Start Date End Date Bijan Elmore [address] [place] [address] PCP - General 02/18/20 Endoscopy Technician Relationship Specialty Start Date End Date Bijan Elmore [address] [place] [address] PCP - General 02/18/20 Endoscopy Technician Relationship Specialty Start Date End Date Bijan Elmore [address] [place] [address] PCP - General 02/18/20 Endoscopy Technician Relationship Specialty Start Date End Date Bijan Elmore MD [address] [place] [address] PCP - General Family Medicine 12/30/23 Endoscopy Technician Relationship Specialty Start Date End Date Bijan Elmore MD [address] [place] [address] PCP - General Family Medicine 06/05/15 Cheryl Araujo APRN.HAND PLUG SHAPER [address] [facility] [address] [place], [place] [id number] Vending Machine Technician Internal Medicine 01/25/24 Endoscopy Technician Relationship Specialty Start Date End Date Bijan Elmore MD [address] [place], [place] [address] PCP - General Family Medicine 06/05/15 Cheryl Araujo APRN.HAND PLUG SHAPER [address] [facility] [address] [place] [id number] Vending Machine Technician Internal Medicine 01/25/24 Endoscopy Technician Relationship Specialty Start Date End Date Bijan Elmore MD [address] [place], [place] [id number] PCP - General Family Medicine 06/05/15 Cheryl Araujo, JADA.HAND PLUG SHAPER [address] [facility] [address] [place] [id number] Vending Machine Technician Internal Medicine 01/25/24 Endoscopy Technician Relationship Specialty Start Date End Date Bijan Elmore MD [address] [place], [place] [address] PCP - General Family Medicine 12/30/23 Endoscopy Technician Relationship Specialty Start Date End Date Bijan Elmore MD [address] [place], [place] [id number] PCP - General Family Medicine 06/05/15 Cheryl Araujo, ENGINE WATCHMAN.HAND PLUG SHAPER [address] [facility] [address] [place] [id number] Vending Machine Technician Internal Medicine 01/25/24 Endoscopy Technician Relationship Specialty Start Date End Date Bijan Elmore MD [address] [place], [place] [id number] PCP - General Family Medicine 12/30/23 Endoscopy Technician Relationship Specialty Start Date End Date Bijan Elmore MD [address] [place], [place] [id number] PCP - General Family Medicine 12/30/23 Team Status: Active Member Role Status Dates Dr. Francisco Elmore MD Primary Care Provider Active Team Status: Inactive Member Role Status Dates Dr. Francisco Elmore MD Primary Care Provider Active Start: April 25, 2024 End: April 25, 2024 Dr. Pan Abarca MD Emergency Provider Active Start: April 25, 2024 End: April 25, 2024 Endoscopy Technician Relationship Specialty Start Date End Date Bijan Elmore MD [address] [place] [address] PCP - General Family Medicine 06/05/15 Cheryl Araujo APRN.HAND PLUG SHAPER [address] [facility] [place] [address] Vending Machine Technician Internal Medicine 01/25/24 Endoscopy Technician Relationship Specialty Start Date End Date Bijan Elmore MD [address] [place] [address] PCP - General Family Medicine 06/05/15 Cheryl Araujo APRN.HAND PLUG SHAPER [address] [facility] [place] [address] Vending Machine Technician Internal Medicine 01/25/24 Source Comments (unrecognize d section and content) In the event this informatio n is protected by the Federal Confidentiality of Alcohol and Drug Abuse Patient Records regulations: The Federal rules restrict any use of the information to criminally investigate or prosecute any alcohol or drug abuse patient.[facility] [place]In the event this information is protected by the Federal Confidentiality of Alcohol and Drug Abuse Patient Records regulations: The Federal rules restrict any use of the information to criminally investigate or prosecute any alcohol or drug abuse patient.[facility] [place]In the event this information is protected by the Federal Confidentiality of Alcohol and Drug Abuse Patient Records regulations: The Federal rules restrict any use of the information to criminally investigate or prosecute any alcohol or drug abuse patient.[facility] [place]In the event this information is protected by the Federal Confidentiality of Alcohol and Drug Abuse Patient Records regulations: The Federal rules restrict any use of the information to criminally investigate or prosecute any alcohol or drug abuse patient.[facility] [place]In the event this information is protected by the Federal Confidentiality of Alcohol and Drug Abuse Patient Records regulations: The Federal rules restrict any use of the information to criminally investigate or prosecute any alcohol or drug abuse patient.[facility] [place]In the event this information is protected by the Federal Confidentiality of Alcohol and Drug Abuse Patient Records regulations: The Federal rules restrict any use of the information to criminally investigate or prosecute any alcohol or drug abuse patient.[facility] [place]In the event this information is protected by the Federal Confidentiality of Alcohol and Drug Abuse Patient Records regulations: The Federal rules restrict any use of the information to criminally investigate or prosecute any alcohol or drug abuse patient.[facility] [place]In the event this information is protected by the Federal Confidentiality of Alcohol and Drug Abuse Patient Records regulations: The Federal rules restrict any use of the information to criminally investigate or prosecute any alcohol or drug abuse patient.[facility] [place]In the event this information is protected by the Federal Confidentiality of Alcohol and Drug Abuse Patient Records regulations: The Federal rules restrict any use of the information to criminally investigate or prosecute any alcohol or drug abuse patient.[facility] [place]In the event this information is protected by the Federal Confidentiality of Alcohol and Drug Abuse Patient Records regulations: The Federal rules restrict any use of the information to criminally investigate or prosecute any alcohol or drug abuse patient.[facility] [place]In the event this information is protected by the Federal Confidentiality of Alcohol and Drug Abuse Patient Records regulations: The Federal rules restrict any use of the information to criminally investigate or prosecute any alcohol or drug abuse patient.[facility] [place]In the event this information is protected by the Federal Confidentiality of Alcohol and Drug Abuse Patient Records regulations: The Federal rules restrict any use of the information to criminally investigate or prosecute any alcohol or drug abuse patient.[facility] [place]In the event this information is protected by the Federal Confidentiality of Alcohol and Drug Abuse Patient Records regulations: The Federal rules restrict any use of the information to criminally investigate or prosecute any alcohol or drug abuse patient.[facility] [place]In the event this information is protected by the Federal Confidentiality of Alcohol and Drug Abuse Patient Records regulations: The Federal rules restrict any use of the information to criminally investigate or prosecute any alcohol or drug abuse patient.[facility] [place]In the event this information is protected by the Federal Confidentiality of Alcohol and Drug Abuse Patient Records regulations: The Federal rules restrict any use of the information to criminally investigate or prosecute any alcohol or drug abuse patient.[facility] [place]In the event this information is protected by the Federal Confidentiality of Alcohol and Drug Abuse Patient Records regulations: The Federal rules restrict any use of the information to criminally investigate or prosecute any alcohol or drug abuse patient.[facility] [place]In the event this information is protected by the Federal Confidentiality of Alcohol and Drug Abuse Patient Records regulations: The Federal rules restrict any use of the information to criminally investigate or prosecute any alcohol or drug abuse patient.[facility] [place]In the event this information is protected by the Federal Confidentiality of Alcohol and Drug Abuse Patient Records regulations: The Federal rules restrict any use of the information to criminally investigate or prosecute any alcohol or drug abuse patient.[facility] [place]In the event this information is protected by the Federal Confidentiality of Alcohol and Drug Abuse Patient Records regulations: The Federal rules restrict any use of the information to criminally investigate or prosecute any alcohol or drug abuse patient.[facility] [place]In the event this information is protected by the Federal Confidentiality of Alcohol and Drug Abuse Patient Records regulations: The Federal rules restrict any use of the information to criminally investigate or prosecute any alcohol or drug abuse patient.[facility] [place]In the event this information is protected by the Federal Confidentiality of Alcohol and Drug Abuse Patient Records regulations: The Federal rules restrict any use of the information to criminally investigate or prosecute any alcohol or drug abuse patient.[facility] [place]In the event this information is protected by the Federal Confidentiality of Alcohol and Drug Abuse Patient Records regulations: The Federal rules restrict any use of the information to criminally investigate or prosecute any alcohol or drug abuse patient.[facility] [place]In the event this information is protected by the Federal Confidentiality of Alcohol and Drug Abuse Patient Records regulations: The Federal rules restrict any use of the information to criminally investigate or prosecute any alcohol or drug abuse patient.[facility] [place]In the event this information is protected by the Federal Confidentiality of Alcohol and Drug Abuse Patient Records regulations: The Federal rules restrict any use of the information to criminally investigate or prosecute any alcohol or drug abuse patient.[facility] [place]In the event this information is protected by the Federal Confidentiality of Alcohol and Drug Abuse Patient Records regulations: The Federal rules restrict any use of the information to criminally investigate or prosecute any alcohol or drug abuse patient.[facility] [place]In the event this information is protected by the Federal Confidentiality of Alcohol and Drug Abuse Patient Records regulations: The Federal rules restrict any use of the information to criminally investigate or prosecute any alcohol or drug abuse patient.[facility] [place]In the event this information is protected by the Federal Confidentiality of Alcohol and Drug Abuse Patient Records regulations: The Federal rules restrict any use of the information to criminally investigate or prosecute any alcohol or drug abuse patient.[facility] OhioIn the event this information is protected by the Federal Confidentiality of Alcohol and Drug Abuse Patient Records regulations: The Federal rules restrict any use of the information to criminally investigate or prosecute any alcohol or drug abuse patient.[facility] [place]In the event this information is protected by the Federal Confidentiality of Alcohol and Drug Abuse Patient Records regulations: The Federal rules restrict any use of the information to criminally investigate or prosecute any alcohol or drug abuse patient.[facility] [place]In the event this information is protected by the Federal Confidentiality of Alcohol and Drug Abuse Patient Records regulations: The Federal rules restrict any use of the information to criminally investigate or prosecute any alcohol or drug abuse patient.[facility] [place]In the event this information is protected by the Federal Confidentiality of Alcohol and Drug Abuse Patient Records regulations: The Federal rules restrict any use of the information to criminally investigate or prosecute any alcohol or drug abuse patient.[facility] [place]In the event this information is protected by the Federal Confidentiality of Alcohol and Drug Abuse Patient Records regulations: The Federal rules restrict any use of the information to criminally investigate or prosecute any alcohol or drug abuse patient.[facility] [place]In the event this information is protected by the Federal Confidentiality of Alcohol and Drug Abuse Patient Records regulations: The Federal rules restrict any use of the information to criminally investigate or prosecute any alcohol or drug abuse patient.[facility] [place]In the event this information is protected by the Federal Confidentiality of Alcohol and Drug Abuse Patient Records regulations: The Federal rules restrict any use of the information to criminally investigate or prosecute any alcohol or drug abuse patient.[facility] [place]In the event this information is protected by the Federal Confidentiality of Alcohol and Drug Abuse Patient Records regulations: The Federal rules restrict any use of the information to criminally investigate or prosecute any alcohol or drug abuse patient.[facility] [place]In the event this information is protected by the Federal Confidentiality of Alcohol and Drug Abuse Patient Records regulations: The Federal rules restrict any use of the information to criminally investigate or prosecute any alcohol or drug abuse patient.[facility] [place]In the event this information is protected by the Federal Confidentiality of Alcohol and Drug Abuse Patient Records regulations: The Federal rules restrict any use of the information to criminally investigate or prosecute any alcohol or drug abuse patient.[facility] OhioIn the event this information is protected by the Federal Confidentiality of Alcohol and Drug Abuse Patient Records regulations: The Federal rules restrict any use of the information to criminally investigate or prosecute any alcohol or drug abuse patient.[facility] OhioIn the event this information is protected by the Federal Confidentiality of Alcohol and Drug Abuse Patient Records regulations: The Federal rules restrict any use of the information to criminally investigate or prosecute any alcohol or drug abuse patient.[facility] OhioIn the event this information is protected by the Federal Confidentiality of Alcohol and Drug Abuse Patient Records regulations: The Federal rules restrict any use of the information to criminally investigate or prosecute any alcohol or drug abuse patient.[facility] OhioIn the event this information is protected by the Federal Confidentiality of Alcohol and Drug Abuse Patient Records regulations: The Federal rules restrict any use of the information to criminally investigate or prosecute any alcohol or drug abuse patient.[facility] OhioIn the event this information is protected by the Federal Confidentiality of Alcohol and Drug Abuse Patient Records regulations: The Federal rules restrict any use of the information to criminally investigate or prosecute any alcohol or drug abuse patient.[facility] OhioIn the event this information is protected by the Federal Confidentiality of Alcohol and Drug Abuse Patient Records regulations: The Federal rules restrict any use of the information to criminally investigate or prosecute any alcohol or drug abuse patient.[facility] OhioIn the event this information is protected by the Federal Confidentiality of Alcohol and Drug Abuse Patient Records regulations: The Federal rules restrict any use of the information to criminally investigate or prosecute any alcohol or drug abuse patient.[facility] OhioIn the event this information is protected by the Federal Confidentiality of Alcohol and Drug Abuse Patient Records regulations: The Federal rules restrict any use of the information to criminally investigate or prosecute any alcohol or drug abuse patient.[facility] OhioIn the event this information is protected by the Federal Confidentiality of Alcohol and Drug Abuse Patient Records regulations: The Federal rules restrict any use of the information to criminally investigate or prosecute any alcohol or drug abuse patient.[facility] OhioIn the event this information is protected by the Federal Confidentiality of Alcohol and Drug Abuse Patient Records regulations: The Federal rules restrict any use of the information to criminally investigate or prosecute any alcohol or drug abuse patient.[facility] [place]In the event this information is protected by the Federal Confidentiality of Alcohol and Drug Abuse Patient Records regulations: The Federal rules restrict any use of the information to criminally investigate or prosecute any alcohol or drug abuse patient.[facility] OhioIn the event this information is protected by the Federal Confidentiality of Alcohol and Drug Abuse Patient Records regulations: The Federal rules restrict any use of the information to criminally investigate or prosecute any alcohol or drug abuse patient.[facility] OhioIn the event this information is protected by the Federal Confidentiality of Alcohol and Drug Abuse Patient Records regulations: The Federal rules restrict any use of the information to criminally investigate or prosecute any alcohol or drug abuse patient.[facility] OhioIn the event this information is protected by the Federal Confidentiality of Alcohol and Drug Abuse Patient Records regulations: The Federal rules restrict any use of the information to criminally investigate or prosecute any alcohol or drug abuse patient.[facility] OhioIn the event this information is protected by the Federal Confidentiality of Alcohol and Drug Abuse Patient Records regulations: The Federal rules restrict any use of the information to criminally investigate or prosecute any alcohol or drug abuse patient.[facility] OhioIn the event this information is protected by the Federal Confidentiality of Alcohol and Drug Abuse Patient Records regulations: The Federal rules restrict any use of the information to criminally investigate or prosecute any alcohol or drug abuse patient.[facility] OhioIn the event this information is protected by the Federal Confidentiality of Alcohol and Drug Abuse Patient Records regulations: The Federal rules restrict any use of the information to criminally investigate or prosecute any alcohol or drug abuse patient.[facility] [place]In the event this information is protected by the Federal Confidentiality of Alcohol and Drug Abuse Patient Records regulations: The Federal rules restrict any use of the information to criminally investigate or prosecute any alcohol or drug abuse patient.[facility] OhioIn the event this information is protected by the Federal Confidentiality of Alcohol and Drug Abuse Patient Records regulations: The Federal rules restrict any use of the information to criminally investigate or prosecute any alcohol or drug abuse patient.[facility] OhioIn the event this information is protected by the Federal Confidentiality of Alcohol and Drug Abuse Patient Records regulations: The Federal rules restrict any use of the information to criminally investigate or prosecute any alcohol or drug abuse patient.[facility] [place]In the event this information is protected by the Federal Confidentiality of Alcohol and Drug Abuse Patient Records regulations: The Federal rules restrict any use of the information to criminally investigate or prosecute any alcohol or drug abuse patient.[facility] OhioIn the event this information is protected by the Federal Confidentiality of Alcohol and Drug Abuse Patient Records regulations: The Federal rules restrict any use of the information to criminally investigate or prosecute any alcohol or drug abuse patient.[facility] OhioIn the event this information is protected by the Federal Confidentiality of Alcohol and Drug Abuse Patient Records regulations: The Federal rules restrict any use of the information to criminally investigate or prosecute any alcohol or drug abuse patient.[facility] OhioIn the event this information is protected by the Federal Confidentiality of Alcohol and Drug Abuse Patient Records regulations: The Federal rules restrict any use of the information to criminally investigate or prosecute any alcohol or drug abuse patient.[facility] OhioIn the event this information is protected by the Federal Confidentiality of Alcohol and Drug Abuse Patient Records regulations: The Federal rules restrict any use of the information to criminally investigate or prosecute any alcohol or drug abuse patient.[facility] OhioIn the event this information is protected by the Federal Confidentiality of Alcohol and Drug Abuse Patient Records regulations: The Federal rules restrict any use of the information to criminally investigate or prosecute any alcohol or drug abuse patient.[facility] OhioIn the event this information is protected by the Federal Confidentiality of Alcohol and Drug Abuse Patient Records regulations: The Federal rules restrict any use of the information to criminally investigate or prosecute any alcohol or drug abuse patient.[facility] OhioIn the event this information is protected by the Federal Confidentiality of Alcohol and Drug Abuse Patient Records regulations: The Federal rules restrict any use of the information to criminally investigate or prosecute any alcohol or drug abuse patient.[facility] OhioIn the event this information is protected by the Federal Confidentiality of Alcohol and Drug Abuse Patient Records regulations: The Federal rules restrict any use of the information to criminally investigate or prosecute any alcohol or drug abuse patient.[facility] OhioIn the event this information is protected by the Federal Confidentiality of Alcohol and Drug Abuse Patient Records regulations: The Federal rules restrict any use of the information to criminally investigate or prosecute any alcohol or drug abuse patient.[facility] [place]In the event this information is protected by the Federal Confidentiality of Alcohol and Drug Abuse Patient Records regulations: The Federal rules restrict any use of the information to criminally investigate or prosecute any alcohol or drug abuse patient.[facility] OhioIn the event this information is protected by the Federal Confidentiality of Alcohol and Drug Abuse Patient Records regulations: The Federal rules restrict any use of the information to criminally investigate or prosecute any alcohol or drug abuse patient.[facility] OhioIn the event this information is protected by the Federal Confidentiality of Alcohol and Drug Abuse Patient Records regulations: The Federal rules restrict any use of the information to criminally investigate or prosecute any alcohol or drug abuse patient.[facility] OhioIn the event this information is protected by the Federal Confidentiality of Alcohol and Drug Abuse Patient Records regulations: The Federal rules restrict any use of the information to criminally investigate or prosecute any alcohol or drug abuse patient.[facility] OhioIn the event this information is protected by the Federal Confidentiality of Alcohol and Drug Abuse Patient Records regulations: The Federal rules restrict any use of the information to criminally investigate or prosecute any alcohol or drug abuse patient.[facility] OhioIn the event this information is protected by the Federal Confidentiality of Alcohol and Drug Abuse Patient Records regulations: The Federal rules restrict any use of the information to criminally investigate or prosecute any alcohol or drug abuse patient.[facility] OhioIn the event this information is protected by the Federal Confidentiality of Alcohol and Drug Abuse Patient Records regulations: The Federal rules restrict any use of the information to criminally investigate or prosecute any alcohol or drug abuse patient.[facility] [place]In the event this information is protected by the Federal Confidentiality of Alcohol and Drug Abuse Patient Records regulations: The Federal rules restrict any use of the information to criminally investigate or prosecute any alcohol or drug abuse patient.[facility] [place]In the event this information is protected by the Federal Confidentiality of Alcohol and Drug Abuse Patient Records regulations: The Federal rules restrict any use of the information to criminally investigate or prosecute any alcohol or drug abuse patient.[facility] [place]In the event this information is protected by the Federal Confidentiality of Alcohol and Drug Abuse Patient Records regulations: The Federal rules restrict any use of the information to criminally investigate or prosecute any alcohol or drug abuse patient.[facility] [place]In the event this information is protected by the Federal Confidentiality of Alcohol and Drug Abuse Patient Records regulations: The Federal rules restrict any use of the information to criminally investigate or prosecute any alcohol or drug abuse patient.[facility] [place]In the event this information is protected by the Federal Confidentiality of Alcohol and Drug Abuse Patient Records regulations: The Federal rules restrict any use of the information to criminally investigate or prosecute any alcohol or drug abuse patient.[facility] [place]In the event this information is protected by the Federal Confidentiality of Alcohol and Drug Abuse Patient Records regulations: The Federal rules restrict any use of the information to criminally investigate or prosecute any alcohol or drug abuse patient.[facility] [place]In the event this information is protected by the Federal Confidentiality of Alcohol and Drug Abuse Patient Records regulations: The Federal rules restrict any use of the information to criminally investigate or prosecute any alcohol or drug abuse patient.[facility] [place]In the event this information is protected by the Federal Confidentiality of Alcohol and Drug Abuse Patient Records regulations: The Federal rules restrict any use of the information to criminally investigate or prosecute any alcohol or drug abuse patient.[facility] [place]In the event this information is protected by the Federal Confidentiality of Alcohol and Drug Abuse Patient Records regulations: The Federal rules restrict any use of the information to criminally investigate or prosecute any alcohol or drug abuse patient.[facility] [place]In the event this information is protected by the Federal Confidentiality of Alcohol and Drug Abuse Patient Records regulations: The Federal rules restrict any use of the information to criminally investigate or prosecute any alcohol or drug abuse patient.[facility] [place]In the event this information is protected by the Federal Confidentiality of Alcohol and Drug Abuse Patient Records regulations: The Federal rules restrict any use of the information to criminally investigate or prosecute any alcohol or drug abuse patient.[facility] [place]In the event this information is protected by the Federal Confidentiality of Alcohol and Drug Abuse Patient Records regulations: The Federal rules restrict any use of the information to criminally investigate or prosecute any alcohol or drug abuse patient.[facility] [place]In the event this information is protected by the Federal Confidentiality of Alcohol and Drug Abuse Patient Records regulations: The Federal rules restrict any use of the information to criminally investigate or prosecute any alcohol or drug abuse patient.[facility] [place]In the event this information is protected by the Federal Confidentiality of Alcohol and Drug Abuse Patient Records regulations: The Federal rules restrict any use of the information to criminally investigate or prosecute any alcohol or drug abuse patient.[facility] [place]In the event this information is protected by the Federal Confidentiality of Alcohol and Drug Abuse Patient Records regulations: The Federal rules restrict any use of the information to criminally investigate or prosecute any alcohol or drug abuse patient.[facility] [place]In the event this information is protected by the Federal Confidentiality of Alcohol and Drug Abuse Patient Records regulations: The Federal rules restrict any use of the information to criminally investigate or prosecute any alcohol or drug abuse patient.[facility] [place]In the event this information is protected by the Federal Confidentiality of Alcohol and Drug Abuse Patient Records regulations: The Federal rules restrict any use of the information to criminally investigate or prosecute any alcohol or drug abuse patient.[facility] [place]In the event this information is protected by the Federal Confidentiality of Alcohol and Drug Abuse Patient Records regulations: The Federal rules restrict any use of the information to criminally investigate or prosecute any alcohol or drug abuse patient.[facility] [place]In the event this information is protected by the Federal Confidentiality of Alcohol and Drug Abuse Patient Records regulations: The Federal rules restrict any use of the information to criminally investigate or prosecute any alcohol or drug abuse patient.[facility] [place]In the event this information is protected by the Federal Confidentiality of Alcohol and Drug Abuse Patient Records regulations: The Federal rules restrict any use of the information to criminally investigate or prosecute any alcohol or drug abuse patient.[facility] [place]In the event this information is protected by the Federal Confidentiality of Alcohol and Drug Abuse Patient Records regulations: The Federal rules restrict any use of the information to criminally investigate or prosecute any alcohol or drug abuse patient.[facility] [place]In the event this information is protected by the Federal Confidentiality of Alcohol and Drug Abuse Patient Records regulations: The Federal rules restrict any use of the information to criminally investigate or prosecute any alcohol or drug abuse patient.[facility] [place]In the event this information is protected by the Federal Confidentiality of Alcohol and Drug Abuse Patient Records regulations: The Federal rules restrict any use of the information to criminally investigate or prosecute any alcohol or drug abuse patient.[facility] [place]In the event this information is protected by the Federal Confidentiality of Alcohol and Drug Abuse Patient Records regulations: The Federal rules restrict any use of the information to criminally investigate or prosecute any alcohol or drug abuse patient.[facility] [place]In the event this information is protected by the Federal Confidentiality of Alcohol and Drug Abuse Patient Records regulations: The Federal rules restrict any use of the information to criminally investigate or prosecute any alcohol or drug abuse patient.[facility] [place]In the event this information is protected by the Federal Confidentiality of Alcohol and Drug Abuse Patient Records regulations: The Federal rules restrict any use of the information to criminally investigate or prosecute any alcohol or drug abuse patient.[facility] [place]In the event this information is protected by the Federal Confidentiality of Alcohol and Drug Abuse Patient Records regulations: The Federal rules restrict any use of the information to criminally investigate or prosecute any alcohol or drug abuse patient.[facility] [place]In the event this information is protected by the Federal Confidentiality of Alcohol and Drug Abuse Patient Records regulations: The Federal rules restrict any use of the information to criminally investigate or prosecute any alcohol or drug abuse patient.[facility] [place]In the event this information is protected by the Federal Confidentiality of Alcohol and Drug Abuse Patient Records regulations: The Federal rules restrict any use of the information to criminally investigate or prosecute any alcohol or drug abuse patient.[facility] [place]In the event this information is protected by the Federal Confidentiality of Alcohol and Drug Abuse Patient Records regulations: The Federal rules restrict any use of the information to criminally investigate or prosecute any alcohol or drug abuse patient.[facility] [place]In the event this information is protected by the Federal Confidentiality of Alcohol and Drug Abuse Patient Records regulations: The Federal rules restrict any use of the information to criminally investigate or prosecute any alcohol or drug abuse patient.[facility] [place]In the event this information is protected by the Federal Confidentiality of Alcohol and Drug Abuse Patient Records regulations: The Federal rules restrict any use of the information to criminally investigate or prosecute any alcohol or drug abuse patient.[facility] [place]In the event this information is protected by the Federal Confidentiality of Alcohol and Drug Abuse Patient Records regulations: The Federal rules restrict any use of the information to criminally investigate or prosecute any alcohol or drug abuse patient.[facility] [place]In the event this information is protected by the Federal Confidentiality of Alcohol and Drug Abuse Patient Records regulations: The Federal rules restrict any use of the information to criminally investigate or prosecute any alcohol or drug abuse patient.[facility] [place]In the event this information is protected by the Federal Confidentiality of Alcohol and Drug Abuse Patient Records regulations: The Federal rules restrict any use of the information to criminally investigate or prosecute any alcohol or drug abuse patient.[facility] [place]In the event this information is protected by the Federal Confidentiality of Alcohol and Drug Abuse Patient Records regulations: The Federal rules restrict any use of the information to criminally investigate or prosecute any alcohol or drug abuse patient.[facility] [place]In the event this information is protected by the Federal Confidentiality of Alcohol and Drug Abuse Patient Records regulations: The Federal rules restrict any use of the information to criminally investigate or prosecute any alcohol or drug abuse patient.[facility] [place]In the event this information is protected by the Federal Confidentiality of Alcohol and Drug Abuse Patient Records regulations: The Federal rules restrict any use of the information to criminally investigate or prosecute any alcohol or drug abuse patient.[facility] [place]In the event this information is protected by the Federal Confidentiality of Alcohol and Drug Abuse Patient Records regulations: The Federal rules restrict any use of the information to criminally investigate or prosecute any alcohol or drug abuse patient.[facility] [place]In the event this information is protected by the Federal Confidentiality of Alcohol and Drug Abuse Patient Records regulations: The Federal rules restrict any use of the information to criminally investigate or prosecute any alcohol or drug abuse patient.[facility] [place]In the event this information is protected by the Federal Confidentiality of Alcohol and Drug Abuse Patient Records regulations: The Federal rules restrict any use of the information to criminally investigate or prosecute any alcohol or drug abuse patient.[facility] [place]In the event this information is protected by the Federal Confidentiality of Alcohol and Drug Abuse Patient Records regulations: The Federal rules restrict any use of the information to criminally investigate or prosecute any alcohol or drug abuse patient.[facility] [place]In the event this information is protected by the Federal Confidentiality of Alcohol and Drug Abuse Patient Records regulations: The Federal rules restrict any use of the information to criminally investigate or prosecute any alcohol or drug abuse patient.[facility] [place]In the event this information is protected by the Federal Confidentiality of Alcohol and Drug Abuse Patient Records regulations: The Federal rules restrict any use of the information to criminally investigate or prosecute any alcohol or drug abuse patient.[facility] [place]In the event this information is protected by the Federal Confidentiality of Alcohol and Drug Abuse Patient Records regulations: The Federal rules restrict any use of the information to criminally investigate or prosecute any alcohol or drug abuse patient.[facility] [place]In the event this information is protected by the Federal Confidentiality of Alcohol and Drug Abuse Patient Records regulations: The Federal rules restrict any use of the information to criminally investigate or prosecute any alcohol or drug abuse patient.[facility] [place]In the event this information is protected by the Federal Confidentiality of Alcohol and Drug Abuse Patient Records regulations: The Federal rules restrict any use of the information to criminally investigate or prosecute any alcohol or drug abuse patient.[facility] [place]In the event this information is protected by the Federal Confidentiality of Alcohol and Drug Abuse Patient Records regulations: The Federal rules restrict any use of the information to criminally investigate or prosecute any alcohol or drug abuse patient.[facility] [place]In the event this information is protected by the Federal Confidentiality of Alcohol and Drug Abuse Patient Records regulations: The Federal rules restrict any use of the information to criminally investigate or prosecute any alcohol or drug abuse patient.[facility] [place]In the event this information is protected by the Federal Confidentiality of Alcohol and Drug Abuse Patient Records regulations: The Federal rules restrict any use of the information to criminally investigate or prosecute any alcohol or drug abuse patient.[facility] [place]In the event this information is protected by the Federal Confidentiality of Alcohol and Drug Abuse Patient Records regulations: The Federal rules restrict any use of the information to criminally investigate or prosecute any alcohol or drug abuse patient.[facility] [place]In the event this information is protected by the Federal Confidentiality of Alcohol and Drug Abuse Patient Records regulations: The Federal rules restrict any use of the information to criminally investigate or prosecute any alcohol or drug abuse patient.[facility] [place]In the event this information is protected by the Federal Confidentiality of Alcohol and Drug Abuse Patient Records regulations: The Federal rules restrict any use of the information to criminally investigate or prosecute any alcohol or drug abuse patient.[facility] [place]In the event this information is protected by the Federal Confidentiality of Alcohol and Drug Abuse Patient Records regulations: The Federal rules restrict any use of the information to criminally investigate or prosecute any alcohol or drug abuse patient.[facility] [place]In the event this information is protected by the Federal Confidentiality of Alcohol and Drug Abuse Patient Records regulations: The Federal rules restrict any use of the information to criminally investigate or prosecute any alcohol or drug abuse patient.[facility] [place]In the event this information is protected by the Federal Confidentiality of Alcohol and Drug Abuse Patient Records regulations: The Federal rules restrict any use of the information to criminally investigate or prosecute any alcohol or drug abuse patient.[facility] [place]In the event this information is protected by the Federal Confidentiality of Alcohol and Drug Abuse Patient Records regulations: The Federal rules restrict any use of the information to criminally investigate or prosecute any alcohol or drug abuse patient.[facility] [place]In the event this information is protected by the Federal Confidentiality of Alcohol and Drug Abuse Patient Records regulations: The Federal rules restrict any use of the information to criminally investigate or prosecute any alcohol or drug abuse patient.[facility] [place]In the event this information is protected by the Federal Confidentiality of Alcohol and Drug Abuse Patient Records regulations: The Federal rules restrict any use of the information to criminally investigate or prosecute any alcohol or drug abuse patient.[facility] [place]In the event this information is protected by the Federal Confidentiality of Alcohol and Drug Abuse Patient Records regulations: The Federal rules restrict any use of the information to criminally investigate or prosecute any alcohol or drug abuse patient.[facility] [place]In the event this information is protected by the Federal Confidentiality of Alcohol and Drug Abuse Patient Records regulations: The Federal rules restrict any use of the information to criminally investigate or prosecute any alcohol or drug abuse patient.[facility] [place]In the event this information is protected by the Federal Confidentiality of Alcohol and Drug Abuse Patient Records regulations: The Federal rules restrict any use of the information to criminally investigate or prosecute any alcohol or drug abuse patient.[facility] [place]In the event this information is protected by the Federal Confidentiality of Alcohol and Drug Abuse Patient Records regulations: The Federal rules restrict any use of the information to criminally investigate or prosecute any alcohol or drug abuse patient.[facility] [place]In the event this information is protected by the Federal Confidentiality of Alcohol and Drug Abuse Patient Records regulations: The Federal rules restrict any use of the information to criminally investigate or prosecute any alcohol or drug abuse patient.[facility] [place]In the event this information is protected by the Federal Confidentiality of Alcohol and Drug Abuse Patient Records regulations: The Federal rules restrict any use of the information to criminally investigate or prosecute any alcohol or drug abuse patient.[facility] [place]In the event this information is protected by the Federal Confidentiality of Alcohol and Drug Abuse Patient Records regulations: The Federal rules restrict any use of the information to criminally investigate or prosecute any alcohol or drug abuse patient.[facility] [place]In the event this information is protected by the Federal Confidentiality of Alcohol and Drug Abuse Patient Records regulations: The Federal rules restrict any use of the information to criminally investigate or prosecute any alcohol or drug abuse patient.[facility] [place]In the event this information is protected by the Federal Confidentiality of Alcohol and Drug Abuse Patient Records regulations: The Federal rules restrict any use of the information to criminally investigate or prosecute any alcohol or drug abuse patient.[facility] [place]In the event this information is protected by the Federal Confidentiality of Alcohol and Drug Abuse Patient Records regulations: The Federal rules restrict any use of the information to criminally investigate or prosecute any alcohol or drug abuse patient.[facility] [place]In the event this information is protected by the Federal Confidentiality of Alcohol and Drug Abuse Patient Records regulations: The Federal rules restrict any use of the information to criminally investigate or prosecute any alcohol or drug abuse patient.[facility] [place]In the event this information is protected by the Federal Confidentiality of Alcohol and Drug Abuse Patient Records regulations: The Federal rules restrict any use of the information to criminally investigate or prosecute any alcohol or drug abuse patient.[facility] [place]In the event this information is protected by the Federal Confidentiality of Alcohol and Drug Abuse Patient Records regulations: The Federal rules restrict any use of the information to criminally investigate or prosecute any alcohol or drug abuse patient.[facility] [place]In the event this information is protected by the Federal Confidentiality of Alcohol and Drug Abuse Patient Records regulations: The Federal rules restrict any use of the information to criminally investigate or prosecute any alcohol or drug abuse patient.[facility] [place]In the event this information is protected by the Federal Confidentiality of Alcohol and Drug Abuse Patient Records regulations: The Federal rules restrict any use of the information to criminally investigate or prosecute any alcohol or drug abuse patient.[facility] [place]In the event this information is protected by the Federal Confidentiality of Alcohol and Drug Abuse Patient Records regulations: The Federal rules restrict any use of the information to criminally investigate or prosecute any alcohol or drug abuse patient.[facility] [place]In the event this information is protected by the Federal Confidentiality of Alcohol and Drug Abuse Patient Records regulations: The Federal rules restrict any use of the information to criminally investigate or prosecute any alcohol or drug abuse patient.[facility] [place]In the event this information is protected by the Federal Confidentiality of Alcohol and Drug Abuse Patient Records regulations: The Federal rules restrict any use of the information to criminally investigate or prosecute any alcohol or drug abuse patient.[facility] [place]In the event this information is protected by the Federal Confidentiality of Alcohol and Drug Abuse Patient Records regulations: The Federal rules restrict any use of the information to criminally investigate or prosecute any alcohol or drug abuse patient.[facility] [place]In the event this information is protected by the Federal Confidentiality of Alcohol and Drug Abuse Patient Records regulations: The Federal rules restrict any use of the information to criminally investigate or prosecute any alcohol or drug abuse patient.[facility] [place]In the event this information is protected by the Federal Confidentiality of Alcohol and Drug Abuse Patient Records regulations: The Federal rules restrict any use of the information to criminally investigate or prosecute any alcohol or drug abuse patient.[facility] [place]In the event this information is protected by the Federal Confidentiality of Alcohol and Drug Abuse Patient Records regulations: The Federal rules restrict any use of the information to criminally investigate or prosecute any alcohol or drug abuse patient.[facility] [place]In the event this information is protected by the Federal Confidentiality of Alcohol and Drug Abuse Patient Records regulations: The Federal rules restrict any use of the information to criminally investigate or prosecute any alcohol or drug abuse patient.[facility] OhioIn the event this information is protected by the Federal Confidentiality of Alcohol and Drug Abuse Patient Records regulations: The Federal rules restrict any use of the information to criminally investigate or prosecute any alcohol or drug abuse patient.[facility] OhioIn the event this information is protected by the Federal Confidentiality of Alcohol and Drug Abuse Patient Records regulations: The Federal rules restrict any use of the information to criminally investigate or prosecute any alcohol or drug abuse patient.[facility] OhioIn the event this information is protected by the Federal Confidentiality of Alcohol and Drug Abuse Patient Records regulations: The Federal rules restrict any use of the information to criminally investigate or prosecute any alcohol or drug abuse patient.[facility] [place]In the event this information is protected by the Federal Confidentiality of Alcohol and Drug Abuse Patient Records regulations: The Federal rules restrict any use of the information to criminally investigate or prosecute any alcohol or drug abuse patient.[facility] [place]In the event this information is protected by the Federal Confidentiality of Alcohol and Drug Abuse Patient Records regulations: The Federal rules restrict any use of the information to criminally investigate or prosecute any alcohol or drug abuse patient.[facility] OhioIn the event this information is protected by the Federal Confidentiality of Alcohol and Drug Abuse Patient Records regulations: The Federal rules restrict any use of the information to criminally investigate or prosecute any alcohol or drug abuse patient.[facility] [place]In the event this information is protected by the Federal Confidentiality of Alcohol and Drug Abuse Patient Records regulations: The Federal rules restrict any use of the information to criminally investigate or prosecute any alcohol or drug abuse patient.[facility] [place]In the event this information is protected by the Federal Confidentiality of Alcohol and Drug Abuse Patient Records regulations: The Federal rules restrict any use of the information to criminally investigate or prosecute any alcohol or drug abuse patient.[facility] [place]In the event this information is protected by the Federal Confidentiality of Alcohol and Drug Abuse Patient Records regulations: The Federal rules restrict any use of the information to criminally investigate or prosecute any alcohol or drug abuse patient.[facility] [place]In the event this information is protected by the Federal Confidentiality of Alcohol and Drug Abuse Patient Records regulations: The Federal rules restrict any use of the information to criminally investigate or prosecute any alcohol or drug abuse patient.[facility] [place]In the event this information is protected by the Federal Confidentiality of Alcohol and Drug Abuse Patient Records regulations: The Federal rules restrict any use of the information to criminally investigate or prosecute any alcohol or drug abuse patient.[facility] [place]In the event this information is protected by the Federal Confidentiality of Alcohol and Drug Abuse Patient Records regulations: The Federal rules restrict any use of the information to criminally investigate or prosecute any alcohol or drug abuse patient.[facility] [place]In the event this information is protected by the Federal Confidentiality of Alcohol and Drug Abuse Patient Records regulations: The Federal rules restrict any use of the information to criminally investigate or prosecute any alcohol or drug abuse patient.[facility] [place]In the event this information is protected by the Federal Confidentiality of Alcohol and Drug Abuse Patient Records regulations: The Federal rules restrict any use of the information to criminally investigate or prosecute any alcohol or drug abuse patient.[facility] [place]In the event this information is protected by the Federal Confidentiality of Alcohol and Drug Abuse Patient Records regulations: The Federal rules restrict any use of the information to criminally investigate or prosecute any alcohol or drug abuse patient.[facility] [place]In the event this information is protected by the Federal Confidentiality of Alcohol and Drug Abuse Patient Records regulations: The Federal rules restrict any use of the information to criminally investigate or prosecute any alcohol or drug abuse patient.[facility] [place]In the event this information is protected by the Federal Confidentiality of Alcohol and Drug Abuse Patient Records regulations: The Federal rules restrict any use of the information to criminally investigate or prosecute any alcohol or drug abuse patient.[facility] [place]In the event this information is protected by the Federal Confidentiality of Alcohol and Drug Abuse Patient Records regulations: The Federal rules restrict any use of the information to criminally investigate or prosecute any alcohol or drug abuse patient.[facility] [place] Goals (unrecognized section and content) Goals may be documented in a n alternate sectionGoals may be documented in an alternate sectionGoals may be documented in an alternate sectionGoals may be documented in an alternate section FOR RECORDS PERTAINING TO PATIENTS WHO ARE OR HAVE BEEN ENROLLED IN A CHEMICAL DEPENDENCY/SUBSTANCEABUSE PROGRAM, SOME INFORMATION MAY BE OMITTED. This clinical summary was aggregated from multiple sources. Caution should be exercised in using it in the provision of clinical care. This summary normalizes information from multiple sources, and as a consequence, information in this document may materially change the coding, format and clinical context of patient data. In addition, data may be omitted in some cases. CLINICAL DECISIONS SHOULD BE BASED ON THE PRIMARY CLINICAL RECORDS. [facility] [employer] [facility]. provides no warranty or guarantee of the accuracy or completeness of information in this document.
[2024-08-08 21:02] LABS: Absolute Lymphocyte Count 3.72 X10^3/uL (0.83-4.51); Absolute Neutrophil Count 12.1 X10^3/uL (2.0-7.7); Basophil# 0.09 X10^3/uL; Basophil% 0.5 % (0-1); Eosinophil# 0.01 X10^3/uL; Eosinophils% 0.1 % (0-5); Hematocrit 42.4 % (37-47); Hemoglobin 13.5 g/dL (12.0-15.0); Lymphocyte # 3.72 X10^3/ul (0.83-4.51); Lymphocyte % 21.8 % (19-41); Mean Corp Hgb Conc 31.8 g/dL (32-36); Mean Corpuscular Hgb 24.8 pg (27.0-32.0); Mean Corpuscular Volume 77.9 fL (81-99); Mean Platelet Vol. 11.6 fl (6.2-12.0); Monocyte# 0.99 X10^3/uL; Monocyte% 5.8 % (0-10); NRBC Flagged by Analyzer 0 % (0-5); Neutrophil # 12.11 X10^3/uL (2.7-7.7); Neutrophil % 71.1 % (47-70); POSITIVE MORPHOLOGY YES; Platelet Count 502 K/mm3 (150-450); RBC Distribution Width CV 23.1 % (11.6-14.6); RBC Distribution Width SD 62.5 fl (35.1-43.9); Red Blood Count 5.44 M/mm3 (4.2-5.4)
[2024-08-08 21:09] LABS: International Normalized Ratio 1.1; Prothrombin Time (Protime)PT. 13.9 SECONDS (11.7-14.9)
[2024-08-08 21:10] LABS: Partial Thromboplast Time 31.1 Seconds (24.1-36.2)
[2024-08-08] MEDS: 0.9% Normal Saline (1000mL) 1,000 ML 999 ML IV (21:13)
[2024-08-08 21:18] LABS: Differential Indicated SCAN CRITERIA MET
[2024-08-08 21:28] LABS: Lactic Acid 1.2 mmol/L (0.0-2.0)
[2024-08-08 21:29] LABS: CPK Total, Creatine Kinase 226 U/L (24-195)
[2024-08-08 21:30] LABS: ALB/GLOB Ratio 1.1 RATIO (0.9-2.4); AST(SGOT) 56 U/L (<=31); Alanine Aminotransfer ALT/SGPT 43 U/L (<=34); Albumin, Serum 4.3 g/dL (3.5-5.0); Alkaline Phosphatase 174 U/L (35-104); Anion Gap 15 (5-15); BUN 11 mg/dL (4-19); BUN/Creat Ratio 14.8 RATIO (10-20); Calcium,Total 9.9 mg/dL (7.6-11.0); Carbon Dioxide 21.5 mmol/L (21.0-32.0); Chloride 103 mmol/L (98-108); Creatinine, Serum 0.72 mg/dL (0.70-1.20); EST Glomerular Filtration Rate 101 (>60); Estimated Creatinine Clearance 89.29 ml/min (50-250); Globulin 3.9 g/dL (2.2-4.2); Glucose 115 mg/dL (70-99); Potassium 4.1 mmol/L (3.3-5.1); Protein, Total 8.2 g/dL (5.9-8.4); Sodium Level 139 mmol/L (133-145); Total Bilirubin 0.63 mg/dL (0.00-1.30)
--- NOTE | 2024-08-08 21:43 | RAD_ITS ---
PROCEDURE: CHEST 1 VIEW (PORTABLE) 08/08/2024 REASON FOR EXAM: ALTERED MENTAL STATUS TECHNIQUE: Frontal view of the chest. COMPARISON: None FINDINGS: No focal consolidation. No pleural effusion or pneumothorax. Cardiac silhouette is within normal limits. RAD/Chest 1 View (Portable) IMPRESSION: No focal consolidations. Reading Location: [id number]
[2024-08-08 21:45] LABS: Mucous, Urine 0 SEEN /hpf (<or=2+)
[2024-08-08 21:54] LABS: Color, Urine Yellow (Yellow); Glucose, Dipstick Normal (Normal); Ketone-Dipstick 15 mg/dl (Negative); Leukocyte Esterase-Dipstick 25 /ul (Negative); Nitrite-Dipstick Negative (Negative); Occult Blood-Urine 10 /ul (Negative); Protein-Dipstick 30 mg/dl (Negative); Specific Gravity, Urine 1.025 (1.002-1.030); Urine Clarity Sl. Cloudy (Clear); Urine Urobilinogen 1 mg/dl (Normal)
[2024-08-08 21:56] LABS: Urine Bilirubin Dipstick 1 mg/dL (Negative)
[2024-08-08 22:09] LABS: Bacteria 1+ /hpf (None Seen); Red Blood Cells-Urine 0-5 SEEN /hpf (0-5); Squamous Epithelial Cells - UA 0-5 SEEN /hpf (5-10); White Blood Cells 0-5 SEEN /hpf (0-5)
[2024-08-08 22:10] LABS: Amorphous Sediment 3+
[2024-08-08] MEDS: Ceftriaxone 1 GM/50 ML BAG IV (22:24)
[2024-08-08 22:27] LABS: Amphetamine Urine NEGATIVE (<1000 ng/mL); Barbiturate Urine NEGATIVE (< 200 ng/mL); Benzodiazepine Urine PRESUMPTIVE POSITIVE (< 200 ng/mL); Buprenorphine Urine NEGATIVE (< 200 ng/mL); Cocaine Urine NEGATIVE (< 300 ng/mL); Fentanyl, Urine NEGATIVE; Methadone Urine PRESUMPTIVE POSITIVE (< 300 ng/mL); Opiates Urine NEGATIVE (< 300 ng/mL); Oxycodone, Urine NEGATIVE (< 100 ng/mL); PCP Urine PRESUMPTIVE POSITIVE (< 25 ng/mL); THC Urine NEGATIVE (< 50 ng/mL)
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
[2024-08-08 22:29] LABS: Differential Comment SCANNED
--- NOTE | 2024-08-08 22:34 | CT_ITS ---
PROCEDURE: ABDOMEN/PELVIS W IV CONT ONLY 08/08/2024 REASON FOR EXAM: LEUKOCYTOSIS TECHNIQUE: ABDOMEN/PELVIS W IV CONT ONLY. Coronal and Sagittal reconstruction series were provided. CONTRAST: 100 mL of Isovue 370 One or more dose reduction techniques were used (e.g., Automated exposure control, adjustment of the mA and/or kV according to patient size, use of iterative reconstruction technique. RADIATION DOSE SUMMARY: DLP: 1108 mGycm COMPARISON: None FINDINGS: Limited sections of the lung bases demonstrate no focal pulmonary mass or consolidations. Bibasilar subsegmental atelectasis. The liver, spleen, pancreas, and both adrenal glands demonstrate no acute findings. The gallbladder is unremarkable. The stomach is unremarkable. The small bowel loops are not dilated. The appendix is normal. No colonic obstruction. Moderate stool burden which may reflect constipation. Mild thickening of the colon may reflect colitis. There is no free air or significant free fluid. The kidneys are unremarkable. The urinary bladder is not distended. The pelvic structures are intact. There is no solid pelvic mass. Vascular congestion is noted within the pelvis suggestive of pelvic congestion syndrome No significant lymphadenopathy. The aorta and IVC demonstrate no acute findings. IVC filter is noted. Visualized osseous structures demonstrate no acute abnormality. Orthopedic plates within the left pelvis and acetabulum with osseous remodeling. No acute fractures or dislocations. Surgically absent left humeral head. Postsurgical/traumatic changes within the anterior proximal left thigh. CT/Abdomen/Pelvis W IV Cont ONLY IMPRESSION: Mild thickening of the colonic wall may reflect colitis. Moderate stool burden which may reflect constipation. No bowel obstruction. Vascular congestion within the pelvis may reflect pelvic congestion syndrome. Postsurgical changes of the left hip. Reading Location: [id number]
[2024-08-08 22:37] LABS: Hypochromasia 1+; Platelet Estimate MOD INC (ADEQ); Polychromasia 1+
[2024-08-08 22:39] LABS: Anisocytosis 1+
[2024-08-08 22:40] LABS: Alcohol, Blood (Medical)-Serum < 10.1 mg/dL (<=10.0)
[2024-08-08] MEDS: 0.9% Normal Saline (1000mL) 1,000 ML 125 ML IV (23:49)
--- OUTSIDE RECORDS SUMMARY | 2024-08-09 00:08 | XMS RPT_ITS | CCD ---
Author Organization [facility] Care Team Providers Care Pulp Bleacher Name Role Phone Unavailable Primary Care Provider UnavailBijan Figueroa Primary Care Provider PROVIDER, UNKNOWN Admitting Unavailable PROVIDER, UNKNOWN Attending Unavailable ADALBERTO MCQUEEN Primary Care Unavailable PROVIDER, UNKNOWN Admitting Unavailable PROVIDER, UNKNOWN Attending Unavailable RENE LUNDBERG Referring Unavailable ADALBERTO MCQUEEN Primary Care Unavailable Bijan Elmore Primary Care Provider Unavailable Primary Care Provider UnavailBijan Figueroa MD Primary Care Provider [phone] Dr. Francisco Elmore Primary Care Provider Dr. Andre Sinclair Attending Provider Bijan Elmore MD Primary Care Provider [phone] Bijan Elmore Primary Care Provider Bijan Elmore [...] Unavailable Bijan Elmore MD Primary Care Provider JARVIS ALMONTE Attending Unavailable CRISTIANEK, BIJAN Primary Care Unavailable CASS GUZMAN Attending Unavailable KERLINETAK, BIJAN Primary Care Unavailable FRANCISCO WARE Attending Unavailable PACHECO BOOTHE Attending Unavailable CASS GUZMAN Attending Unavailable DAMIAN MOYA Referring Unavailable KONTAK, BIJAN Primary Care Unavailable PACHECO BOOTHE Attending Unavailable KERLINETAK, BIJAN Primary Care Unavailable JARVIS ALMONTE Attending Unavailable JEANIE, FRANCISCO Referring Unavailable Kontak, Bijan R Primary Care Provider Joselo MONTANEZ, Alicia Unavailable Unavailable Dr. Francisco Elmore Primary Care Provider HARMAN Munoz Attending Provider [phone] HARMAN Munoz Other Provider Dr. Abhi Quan Referring Provider [phone] Bijan Elmore MD Primary Care Provider Unavailable Primary Care Provider Unavailabl e Generic [...] Catarina ESCAMILLA, Bijan Darnell Primary Care Provider Van RECONCILIATION COORDINATOR.AUTO BRAKE MECHANIC, Cheryl Unavailable TALBOO-LISSA PA~[phone], TALBOO-LISSA DI SUMA Attending Unavailable TALBOO-LISSA PA~[phone], TALBOO-LISSA DI SUMA Admitting Unavailable BIJAN ELMORE [...] Primary Care Unavailable Francisco Elmore Referring Unavailable [facility] Doctor, Out of Attending Unavailable Francisco Elmore [...] Propensity to adverse reactions to drug 6 [place] (17 sources) Penicillins Drug Allergy 6 Other, Shortness of breath, Unknown [facility] (3 sources) Penicillins Allergy to substance 3 Unknown [facility] (9 sources) Penicillins Drug Allergy 6 Other, Shortness of breath, Unknown [facility] (2 sources) Penicillin; Translations: [PENICILLIN] Drug Allergy 6 [facility] Repository (1 source) ALLERGIES NOT ON FILE; Translations: [ALLERGIES NOT ON FILE] Propensity to adverse reactions (disorder) [facility] 1 Repository (1 source) Penicillins Drug Allergy 6 Other, Shortness of breath, Unknown [facility] (1 source) Penicillins Drug allergy (disorder) 5 [facility] Repository Medications Current Medications Medication Drug [...] on above: Take 2 tablets by mo [facility] every 6 hours as needed for [...] times daily PRN, muscle spasms, Starting on [facility] 03/25/24 at 2335 Start: 12-12-2021 End: 06-16-2024 [...] twice daily. Take 3 tablets by mo [facility] three times daily. Take 1 tablet [...] Start: 03-11-2024 take 10 mg rectal ro kake every twenty-four hours as needed Start: 03-11-2024 take 1 tablet by ananth every twenty-four hours as needed Start: 01-09-2024 take 10 mg rectal ro kake every twenty-four hours as needed Start: 12-28-2020 End: 12-28-2020 take 10 mg rectal route once 10 mg, Rectal, ONCE, On T hu 12/28/20 at 2100, For 1 dose Start: 12-23-2020 End: 12-27-2020 take 10 mg rectal route once daily 10 mg, Rectal, DAILY, First dose on [facility] 12/23/20 at 0900 Start: 12-21-2020 End: [...] docusate sodium 50 mg / matt osides, assisted 8.6 mg oral tablet (2 sources) Start: 05-05-2024 Start: 01-09-2024 take 2 tablets by [facility] twice daily for constipation 2 tablet, oral, [...] Comment on above: take 1 tablet by [facility] three times a day Take 1 tablet by [facility] three times daily for 90 days. Take 1 tablet by [facility] three times daily for 30 days. Take 1 tablet by [facility] three times a day for 90 [...] twice a day Take 1 tablet by [facility] two times a day. 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 sennosides, assisted 8.6 mg oral tablet (5 sources) Start: [...] 2112, Phase II/On Unit, 2nd Line. Give MN if patient is unable to take orally [...] tablet 1 tablet 500 ml albumin human, assisted 50 mg/ml injection (1 source) Human Serum Albumin Start: 03-25-2024 End: 03-25-2024 12.5 g, intravenous, at 250 mL/hr, Administer over 60 Minutes, Once, On [facility] 03/25/24 at 2200, For 1 dose, Recovery [...] on above: Take 1 capsule by mo [facility] twice daily for 10 days. Take 1 capsule by mo [facility] twice daily for 7 days. doxycycline [...] Comment on above: Take 1 capsule by [facility] as needed. hydrOXYzine hydrochloride 25 mg oral [...] Comment on above: take 1 tablet by [facility] three times a day if needed [...] a venous catheter once every 24 hours. 98106 mg 03/16/2024 04/23/2024 Suspended Start: 03-16-2024 End: 04-23-2024 sodium chloride 0.9% van ral solution 50 mL with DAPTOmycin 50 mg/mL recon soln 750 mg Indications: Chronic multifocal osteomyelitis of right tibia (Multi) Infuse 750 mg at 130 mL/hr over 30 minutes into a venous catheter once every 24 hours. 85684 mg 03/16/2024 04/23/2024 Active 150 ml vancomycin [...] sources) Long-term current use of antibiotic; Translations: [engineering and scientific programmer (current) use of antibiotics] Onset: 1 01-31-2021 Episodic Other aftercare (2 sources) engineering and scientific programmer (current) use of aspirin; Translations: [engineering and scientific programmer (current) use of aspirin] Onset: 2 Episodic Other aftercare (2 sources) retirement (current) use of systemic steroids; Translations: [engineering and scientific programmer (current) use of systemic steroids] Onset: 2 Episodic Other aftercare (2 sources) Other 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 [id number] Performed By: #### 2 05540 #### [facility],[address] [place] [address] 54529 C-REACTIVE PROTEINon 025 CRP 2.90 mg/dl High 0.00 - 0.90 [facility] Comment on above: Performed By: #### 2 99111 #### [facility],[address] [place] [address] 75553 CBC + DIFFon 06-10-2024 ANISO 1+ Normal [facility] Comment on above: Performed By: #### 2 94852 #### [facility],[address] [place] [address] 20974 Baso # 0.02 x10EE3/UL Normal 0.00 - 0.10 [facility] Comment on above: Performed By: #### 2 43657 #### [facility],[address] [place] [address] 27544 Basophils/100 WBC (Bld) 0.3 % Normal 0.0 - 2.0 [facility] Comment on above: Performed By: #### 2 32453 #### [facility],[address] [place] [address] 76916 CBC + DIFF Normal [facility] Comment on above: Result Comment: CBC- COMPLETE BLOOD COUNT Performed By: #### 2 43725 #### [facility],[address] [place] [address] 96205 CELL COUNT 100 Normal [facility] Comment on above: Performed By: #### 2 80094 #### [facility],[address] [place], [place] [address] EO 6.0 % Normal 0.0 - 7.0 [facility] Comment on above: Performed By: #### 2 20087 #### [facility],[address] [place] [address] EO # 0.32 x10EE3/UL Normal 0.00 - 0.50 [facility] Comment on above: Performed By: #### 2 03087 #### [facility],[address] [place] [address] 56869 Eosinophils/100 WBC (Bld) 5.1 % Normal 0.0 - 7.0 [facility] Comment on above: Performed By: #### 2 29387 #### [facility],[address] [place], [place] [address] Erythrocyte distribution width (RBC) [Ratio] 21.9 % High 12.0 - 15.6 [facility] Comment on above: Performed By: #### 2 77651 #### [facility],[address] [place] [address] 80552 Hematocrit (Bld) [Volume fraction] 30.4 % Low 34.0 - 46.0 [facility] Comment on above: Performed By: #### 2 25652 #### [facility],[address] [place] [address] 63408 Hemoglobin (Bld) [Mass/Vol] 9.8 g/dL Low 12.0 - 16.0 [facility] Comment on above: Performed By: #### 2 90845 #### [facility],[address] [place] [address] 19374 Lymph # 2.83 x10EE3/UL High 0.80 - 2.80 [facility] Comment on above: Performed By: #### 2 68695 #### [facility],[address] [place] [address] 43314 Lymphocytes/100 WBC (Bld) 45.2 % High 20.0 - 45.0 [facility] Comment on above: Performed By: #### 2 62187 #### [facility],[address] [place] [address] 97781 Lymphocytes/100 WBC (Bld) 44 % Normal 20 - 45 [facility] Comment on above: Performed By: #### 2 17693 #### [facility],[address] [place] [address] 38956 MANUAL DIFF SEE BELOW Normal [facility] Comment on above: Performed By: #### 2 88390 #### [facility],[address] [place] [address] 07379 MCH (RBC) [Entitic mass] 25 pg Low 27 - 33 [facility] Comment on above: Performed By: #### 2 26228 #### [facility],[address] [place] [address] 88051 MCHC 32 X10 3 Normal 32 - 36 [facility] Comment on above: Performed By: #### 2 47453 #### [facility],[address] [place] [address] 93285 MCV (RBC) [Entitic vol] 77 fL Low 80 - 99 [facility] Comment on above: Performed By: #### 2 94932 #### [facility],[address] [place] [address] 57563 MICROCYTES 1+ Normal [facility] Comment on above: Performed By: #### 2 36712 #### [facility],[address] [place] [address] 07115 Real # 0.71 x10EE3/UL Normal 0.20 - 1.00 [facility] Comment on above: Performed By: #### 2 25449 #### [facility],[address] [place] [address] 64833 MONOS 10 % Normal 0 - 10 [facility] Comment on above: Performed By: #### 2 75467 #### [facility],[address] [place] [address] 29874 MONOS % 11.4 % High 0.0 - 10.0 [facility] Comment on above: Performed By: #### 2 59415 #### [facility],[address] [place] [address] 86077 Morphology David (Bld) [Interp] SEE BELOW Normal [facility] Comment on above: Performed By: #### 2 80453 #### [facility],[address] [place] [address] 88652 Neut # 2.39 x10EE3/UL Normal 1.50 - 7.10 [facility] Comment on above: Performed By: #### 2 52733 #### [facility],[address] [place] [address] 18824 Neutrophils/100 WBC (Bld) 38.1 % Low 46.0 - 76.0 [facility] Comment on above: Performed By: #### 2 59011 #### [facility],[address] [place] [address] 74354 PLATELET 526 x10EE3/UL High 150 - 450 [facility] Comment on above: Performed By: #### 2 66119 #### [facility],[address] [place] [address] 18628 Platelet mean volume (Bld) [Entitic vol] 8.5 fL Normal 6.6 - 10.5 [facility] Comment on above: Result Comment: AUTO MATED DIFFERENTIAL Performed By: #### 2 06427 #### [facility],[address] [place] [address] 89650 POIKILO 1+ Normal [facility] Comment on above: Performed By: #### 2 77961 #### [facility],[address] [place] [address] 95380 RBC 3.93 x 10EE6/UL Low 4.10 - 5.30 [facility] Comment on above: Performed By: #### 2 39813 #### [facility],[address] [place] [address] SEGS 40 % Low 46 - 76 [facility] Comment on above: Performed By: #### 2 28559 #### [facility],[address] [place], [place] [address] WBC 6.3 x 10EE3/UL Normal 4.5 - 10.8 [facility] Comment on above: Performed By: #### 2 36995 #### [facility],[address] [place], [place] [address] Other +1 TARGET CELLS Normal [facility] Comment on above: Result Comment: +1 B URR CELLS Performed By: #### 2 89417 #### [facility],[address] [place], [place] [address] CMP with eGFRon 06-10-2024 AGE 54 years Normal [facility] Comment on above: Performed By: #### 2 27868 #### [facility],[address] [place] [address] 79514 Albumin [Mass/Vol] 2.9 g/dL Low 3.4 - 5.0 [facility] Comment on above: Performed By: #### 2 14639 #### [facility],[address] [place] [address] 96696 Albumin/Globulin [Mass ratio] 0.7 {ratio} Low 0.9 - 1.6 [facility] Comment on above: Performed By: #### 2 82404 #### [facility],[address] [place] [address] 63692 ALK PHOS 123 U/L High 46 - 116 [facility] Comment on above: Performed By: #### 2 39489 #### [facility],[address] [place] [address] 04745 ALT [Catalytic activity/Vol] 30 U/L Normal 16 - 63 [facility] Comment on above: Performed By: #### 2 77221 #### [facility],[address] [place] [address] 25131 Anion gap [Moles/Vol] 12 mmol/L Normal 10 - 20 [facility] Comment on above: Performed By: #### 2 23409 #### [facility],[address] [place] [address] 08871 AST [Catalytic activity/Vol] 24 U/L Normal 13 - 39 [facility] Comment on above: Performed By: #### 2 22716 #### [facility],[address] [place] [address] 18865 B/C RATIO 14 ratio Normal 0 - 30 [facility] Comment on above: Performed By: #### 2 38986 #### [facility],[address] [place] [address] 61778 Bilirubin [Mass/Vol] 0.1 mg/dL Low 0.2 - 1.0 [facility] Comment on above: Performed By: #### 2 70904 #### [facility],[address] [place] [address] 72722 Calcium [Mass/Vol] 9.1 mg/dL Normal 8.5 - 10.1 [facility] Comment on above: Performed By: #### 2 07971 #### [facility],[address] [place] [address] 51230 Chloride [Moles/Vol] 102 mmol/L Normal 98 - 107 [facility] Comment on above: Performed By: #### 2 04653 #### [facility],[address] [place] [address] 53368 CMP with eGFR Normal [facility] Comment on above: Result Comment: COMP REHENSIVE METABOLIC PANEL Performed By: #### 2 70503 #### [facility],[address] [place] [address] 31761 CO2 [Moles/Vol] 28.0 mmol/L Normal 21.0 - 32.0 [facility] Comment on above: Performed By: #### 2 89181 #### [facility],[address] [place] [address] 95079 Creatinine [Mass/Vol] 0.78 mg/dL Normal 0.55 - 1.02 [facility] Comment on above: Performed By: #### 2 19953 #### [facility],[address] [place] [address] 81265 GFR/1.73 sq M.predicted among non-blacks MDRD (S/P/Bld) [Vol rate/Area] mL/min/{1.73_m2} Normal 60 - 999 [facility] Comment on above: Performed By: #### 2 54711 #### [facility],[address] [place], [place] [address] Result Comment: ACCO RDING TO THE NATIONAL KIDNEY DISEASE EDUCATION PROGRAM(NKDE), A NORMAL eGFR IS A VALUE GREATER THAN OR EQUAL TO 60 ML/MIN/1.73 SQ METERS. CHRONIC KIDNEY DISEASE: <60mL/MIN/1.73 SQ METERS KIDNEY FAILURE: <15mL/MIN/1.73 SQ METERS THIS TEST SHOULD ONLY BE USED FOR PATIENTS 18 YEARS OF AGE AND OLDER. Globulin (S) [Mass/Vol] 4.0 g/dL High 1.5 - 3.8 [facility] Comment on above: Performed By: #### 2 11939 #### [facility],[address] [place] [address] 86891 Glucose [Mass/Vol] 112 mg/dL High 74 - 106 [facility] Comment on above: Performed By: #### 2 71315 #### [facility],[address] [place] [address] 89938 Potassium [Moles/Vol] 4.0 mmol/L Normal 3.5 - 5.1 [facility] Comment on above: Performed By: #### 2 33689 #### [facility],[address] [place] [address] 78900 Protein [Mass/Vol] 6.9 g/dL Normal 6.4 - 8.2 [facility] Comment on above: Performed By: #### 2 39024 #### [facility],[address] [place] [address] 82236 Sodium [Moles/Vol] 138 mmol/L Normal 136 - 145 [facility] Comment on above: Performed By: #### 2 96186 #### [facility],[address] [place] [address] 78840 Urea nitrogen [Mass/Vol] 11 mg/dL Normal 7 - 18 [facility] Comment on above: Performed By: #### 2 97394 #### [facility],[address] [place] [address] 65677 CBC W/Diff, Automatedon 05-19 PATH REV Reviewed Normal [facility] Comment on above: Result Comment: SEE REPORT IN PATIENT'S EMR AMENDED REPORT 06/07/24 1516 PATH REV previously reported as: June rosita Performed By: #### L 500.2500, L100.0100 #### [facility] [address] [place], [address] CK [CCL]on 06-04-2024 CK [Catalytic activity/Vol] 86 U/L Normal 42-196 [facility] Comment on above: Result Comment: [facility] [address] [place] [address] Emiliano Pace III, M.D. [id number] Performed By: #### 2 15770 #### [facility],[address] [place] [address] 08899 C-REACTIVE PROTEINon 025 CRP 5.52 mg/dl High 0.00 - 0.90 [facility] Comment on above: Performed By: #### 2 07424 #### [facility],[address] [place] [address] 64969 CBC + DIFFon 06-03-2024 ANISO 1+ Normal [facility] Comment on above: Performed By: #### 2 80300 #### [facility],[address] [place] [address] 74291 Baso # 0.03 x10EE3/UL Normal 0.00 - 0.10 [facility] Comment on above: Performed By: #### 2 24233 #### [facility],[address] [place] [address] 39036 Basophils/100 WBC (Bld) 0.4 % Normal 0.0 - 2.0 [facility] Comment on above: Performed By: #### 2 81701 #### [facility],[address] [place] [address] 67909 CBC + DIFF Normal [facility] Comment on above: Result Comment: CBC- COMPLETE BLOOD COUNT Performed By: #### 2 38712 #### [facility],[address] [place] [address] 44211 CELL COUNT 100 Normal [facility] Comment on above: Performed By: #### 2 41531 #### [facility],[address] [place] [address] 84823 EO 7.0 % Normal 0.0 - 7.0 [facility] Comment on above: Performed By: #### 2 50769 #### [facility],[address] [place] [address] 03290 EO # 0.48 x10EE3/UL Normal 0.00 - 0.50 [facility] Comment on above: Performed By: #### 2 46996 #### [facility],[address] [place] [address] 34815 Eosinophils/100 WBC (Bld) 6.7 % Normal 0.0 - 7.0 [facility] Comment on above: Performed By: #### 2 16287 #### [facility],[address] [place] [address] 60993 Erythrocyte distribution width (RBC) [Ratio] 20.5 % High 12.0 - 15.6 [facility] Comment on above: Performed By: #### 2 92626 #### [facility],[address] [place] [address] 65731 Hematocrit (Bld) [Volume fraction] 30.1 % Low 34.0 - 46.0 [facility] Comment on above: Performed By: #### 2 81267 #### [facility],[address] [place] [address] 05503 Hemoglobin (Bld) [Mass/Vol] 9.5 g/dL Low 12.0 - 16.0 [facility] Comment on above: Performed By: #### 2 51150 #### [facility],[address] [place] [address] 56835 HYPOCHROM 1+ Normal [facility] Comment on above: Performed By: #### 2 35093 #### [facility],[address] [place] [address] 64530 Lymph # 3.63 x10EE3/UL High 0.80 - 2.80 [facility] Comment on above: Performed By: #### 2 66312 #### [facility],[address] [place] [address] 72764 Lymphocytes/100 WBC (Bld) 50.4 % High 20.0 - 45.0 [facility] Comment on above: Performed By: #### 2 17224 #### [facility],[address] [place] [address] 17974 Lymphocytes/100 WBC (Bld) 45 % Normal 20 - 45 [facility] Comment on above: Performed By: #### 2 75317 #### [facility],[address] [place] [address] MANUAL DIFF SEE BELOW Normal [facility] Comment on above: Performed By: #### 2 78492 #### [facility],[address] [place] [address] MCH (RBC) [Entitic mass] 25 pg Low 27 - 33 [facility] Comment on above: Performed By: #### 2 95012 #### [facility],[address] [place] [address] MCHC 31 X10 3 Low 32 - 36 [facility] Comment on above: Performed By: #### 2 38136 #### [facility],[address] [place] [address] MCV (RBC) [Entitic vol] 79 fL Low 80 - 99 [facility] Comment on above: Performed By: #### 2 91126 #### [facility],[address] [place] [address] MICROCYTES 1+ Normal [facility] Comment on above: Performed By: #### 2 18726 #### [facility],[address] [place] [address] Real # 0.90 x10EE3/UL Normal 0.20 - 1.00 [facility] Comment on above: Performed By: #### 2 54117 #### [facility],[address] [place] [address] MONOS 15 % High 0 - 10 [facility] Comment on above: Performed By: #### 2 75251 #### [facility],[address] [place] [address] MONOS % 12.5 % High 0.0 - 10.0 [facility] Comment on above: Performed By: #### 2 96333 #### [facility],[address] [place] [address] Morphology David (Bld) [Interp] SEE BELOW Normal [facility] Comment on above: Performed By: #### 2 85982 #### [facility],[address] [place] [address] 37167 Neut # 2.16 x10EE3/UL Normal 1.50 - 7.10 [facility] Comment on above: Performed By: #### 2 45729 #### [facility],[address] [place] [address] Neutrophils/100 WBC (Bld) 30.0 % Low 46.0 - 76.0 [facility] Comment on above: Performed By: #### 2 21817 #### [facility],[address] [place], [place] [address] PLATELET 858 x10EE3/UL High 150 - 450 [facility] Comment on above: Performed By: #### 2 56680 #### [facility],[address] [place] [address] Platelet mean volume (Bld) [Entitic vol] 8.4 fL Normal 6.6 - 10.5 [facility] Comment on above: Result Comment: AUTO MATED DIFFERENTIAL Performed By: #### 2 14597 #### [facility],[address] [place] [address] 19111 PLT EST INCREASED Normal [facility] Comment on above: Performed By: #### 2 72003 #### [facility],[address] [place] [address] 02998 POIKILO 1+ Normal [facility] Comment on above: Performed By: #### 2 45542 #### [facility] [facility],[address] [place] [address] 73626 RBC 3.83 x 10EE6/UL Low 4.10 - 5.30 [facility] Comment on above: Performed By: #### 2 27146 #### [facility],[address] [place] [address] SEGS 33 % Low 46 - 76 [facility] Comment on above: Performed By: #### 2 93636 #### [facility],[address] [place] [address] 73971 WBC 7.2 x 10EE3/UL Normal 4.5 - 10.8 [facility] Comment on above: Performed By: #### 2 07670 #### [facility],[address] [place] [address] Other 2+ TARGET CELLS Normal [facility] Comment on above: Result Comment: 1+ B URR CELLS Performed By: #### 2 35634 #### [facility],[address] [place] [address] CMP with eGFRon 06-03-2024 AGE 54 years Normal [facility] Comment on above: Performed By: #### 2 22764 #### [facility],[address] [place] [address] Albumin [Mass/Vol] 3.1 g/dL Low 3.4 - 5.0 [facility] Comment on above: Performed By: #### 2 98250 #### [facility],[address] [place] [address] Albumin/Globulin [Mass ratio] 0.7 {ratio} Low 0.9 - 1.6 [facility] Comment on above: Performed By: #### 2 99706 #### [facility],[address] [place] [address] 84481 ALK PHOS 144 U/L High 46 - 116 [facility] Comment on above: Performed By: #### 2 68811 #### [facility],[address] [place] [address] 68968 ALT [Catalytic activity/Vol] 35 U/L Normal 16 - 63 [facility] Comment on above: Performed By: #### 2 88882 #### [facility],[address],[place] [address] Anion gap [Moles/Vol] 13 mmol/L Normal 10 - 20 [facility] Comment on above: Performed By: #### 2 19748 #### [facility],[address] [place] [address] 66109 AST [Catalytic activity/Vol] 33 U/L Normal 13 - 39 [facility] Comment on above: Performed By: #### 2 40654 #### [facility],[address] [place] [address] 81245 B/C RATIO 5 ratio Normal 0 - 30 [facility] Comment on above: Performed By: #### 2 57960 #### [facility],[address] [place] [address] 94791 Bilirubin [Mass/Vol] 0.2 mg/dL Normal 0.2 - 1.0 [facility] Comment on above: Performed By: #### 2 07974 #### [facility],[address] [place] [address] 27637 Calcium [Mass/Vol] 9.5 mg/dL Normal 8.5 - 10.1 [facility] Comment on above: Performed By: #### 2 23291 #### [facility],[address] [place] [address] 87133 Chloride [Moles/Vol] 102 mmol/L Normal 98 - 107 [facility] Comment on above: Performed By: #### 2 96506 #### [facility],[address] [place] [address] 05845 CMP with eGFR Normal [facility] Comment on above: Result Comment: COMP REHENSIVE METABOLIC PANEL Performed By: #### 2 03378 #### [facility],[address] [place] [address] 58464 CO2 [Moles/Vol] 28.4 mmol/L Normal 21.0 - 32.0 [facility] Comment on above: Performed By: #### 2 64513 #### [facility],[address] [place] [address] 26213 Creatinine [Mass/Vol] 0.74 mg/dL Normal 0.55 - 1.02 [facility] Comment on above: Performed By: #### 2 13345 #### [facility],[address] [place] [address] GFR/1.73 sq M.predicted among non-blacks MDRD (S/P/Bld) [Vol rate/Area] mL/min/{1.73_m2} Normal 60 - 999 [facility] Comment on above: Performed By: #### 2 61384 #### [facility],[address] [place] [address] Result Comment: ACCO RDING TO THE NATIONAL KIDNEY DISEASE EDUCATION PROGRAM(NKDE), A NORMAL eGFR IS A VALUE GREATER THAN OR EQUAL TO 60 ML/MIN/1.73 SQ METERS. CHRONIC KIDNEY DISEASE: <60mL/MIN/1.73 SQ METERS KIDNEY FAILURE: <15mL/MIN/1.73 SQ METERS THIS TEST SHOULD ONLY BE USED FOR PATIENTS 18 YEARS OF AGE AND OLDER. Globulin (S) [Mass/Vol] 4.6 g/dL High 1.5 - 3.8 [facility] Comment on above: Performed By: #### 2 81820 #### [facility],[address] [place] [address] Glucose [Mass/Vol] 90 mg/dL Normal 74 - 106 [facility] Comment on above: Performed By: #### 2 50734 #### [facility],[address] [place], [place] [address] Potassium [Moles/Vol] 4.2 mmol/L Normal 3.5 - 5.1 [facility] Comment on above: Performed By: #### 2 41175 #### [facility],[address] [place], [place] [address] Protein [Mass/Vol] 7.7 g/dL Normal 6.4 - 8.2 [facility] Comment on above: Performed By: #### 2 86725 #### [facility],[address] [place] [address] 27522 Sodium [Moles/Vol] 139 mmol/L Normal 136 - 145 [facility] Comment on above: Performed By: #### 2 46098 #### [facility],[address] [place] [address] 53406 Urea nitrogen [Mass/Vol] 4 mg/dL Low 7 - 18 [facility] Comment on above: Performed By: #### 2 21381 #### [facility],[address] [place] [address] 14551 CK [CCL]on 05-28-2024 CK [Catalytic activity/Vol] 74 U/L Normal 42-196 [facility] Comment on above: Result Comment: [facility] [address] [place] [address] Emiliano Pace III, M.D. [id number] Performed By: #### 2 11986 #### [facility],[address] [place] [address] 05853 C-REACTIVE PROTEINon 025 CRP 5.01 mg/dl High 0.00 - 0.90 [facility] Comment on above: Performed By: #### 2 40756 #### [facility],[address] [place] [address] 71511 CBC + DIFFon 05-27-2024 Baso # 0.02 x10EE3/UL Normal 0.00 - 0.10 [facility] Comment on above: Performed By: #### 2 80136 #### [facility],[address] [place] [address] 66798 Basophils/100 WBC (Bld) 0.3 % Normal 0.0 - 2.0 [facility] Comment on above: Performed By: #### 2 64707 #### [facility],[address] [place] [address] 82826 CBC + DIFF Normal [facility] Comment on above: Result Comment: CORRECTED REPORT CBC-COMPLETE BLOOD COUNT Performed By: #### 2 64362 #### [facility],[address] [place] [address] 65057 EO 1.0 % Normal 0.0 - 7.0 [facility] Comment on above: Performed By: #### 2 21456 #### [facility],[address] [place] [address] 46240 EO # 0.44 x10EE3/UL Normal 0.00 - 0.50 [facility] Comment on above: Performed By: #### 2 37613 #### [facility],[address] [place] [address] 82320 Eosinophils/100 WBC (Bld) 6.7 % Normal 0.0 - 7.0 [facility] Comment on above: Performed By: #### 2 16838 #### [facility],[address] [place], [place] [address] ERROR DUE TO MANUAL DIFF Normal [facility] Comment on above: Result Comment: NEED ED A MANUAL DIFF PERFORMED Performed By: #### 2 95378 #### [facility],[address] [place] [address] 93524 Erythrocyte distribution width (RBC) [Ratio] 19.5 % High 12.0 - 15.6 [facility] Comment on above: Performed By: #### 2 96097 #### [facility],[address] [place] [address] 64099 Hematocrit (Bld) [Volume fraction] 26.5 % Low 34.0 - 46.0 [facility] Comment on above: Performed By: #### 2 71098 #### [facility],[address] [place] [address] 81839 Hemoglobin (Bld) [Mass/Vol] 8.8 g/dL Low 12.0 - 16.0 [facility] Comment on above: Performed By: #### 2 77081 #### [facility],[address] [place] [address] Lymph # 3.28 x10EE3/UL High 0.80 - 2.80 [facility] Comment on above: Performed By: #### 2 64549 #### [facility],[address] [place] [address] Lymphocytes/100 WBC (Bld) 49.4 % High 20.0 - 45.0 [facility] Comment on above: Performed By: #### 2 62862 #### [facility],[address] [place] [address] Lymphocytes/100 WBC (Bld) 53 % High 20 - 45 [facility] Comment on above: Performed By: #### 2 69111 #### [facility],[address] [place] [address] MANUAL DIFF SEE BELOW Normal [facility] Comment on above: Performed By: #### 2 64094 #### [facility],[address] [place] [address] MCH (RBC) [Entitic mass] 25 pg Low 27 - 33 [facility] Comment on above: Performed By: #### 2 96124 #### [facility],[address] [place] [address] MCHC 33 X10 3 Normal 32 - 36 [facility] Comment on above: Performed By: #### 2 93370 #### [facility],[address] [place], [place] [address] MCV (RBC) [Entitic vol] 76 fL Low 80 - 99 [facility] Comment on above: Performed By: #### 2 46469 #### [facility],[address] [place] [address] Real # 0.58 x10EE3/UL Normal 0.20 - 1.00 [facility] Comment on above: Performed By: #### 2 55470 #### [facility],[address] [place] [address] 24478 MONOS 2 % Normal 0 - 10 [facility] Comment on above: Performed By: #### 2 88893 #### [facility],[address] [place] [address] 05656 MONOS % 8.7 % Normal 0.0 - 10.0 [facility] Comment on above: Performed By: #### 2 93956 #### [facility],[address] [place] [address] 00616 Morphology David (Bld) [Interp] NORMAL Normal [facility] Comment on above: Result Comment: ==== FOLLOWING RESULTS REPORTED IN ERROR MANUAL DIFF N/A MORPHOLOGY N/A Performed By: #### 2 75657 #### [facility],[address] [place] [address] 18614 Neut # 2.32 x10EE3/UL Normal 1.50 - 7.10 [facility] Comment on above: Performed By: #### 2 52613 #### [facility],[address] [place] [address] 86769 Neutrophils/100 WBC (Bld) 34.9 % Low 46.0 - 76.0 [facility] Comment on above: Performed By: #### 2 84738 #### [facility],[address] [place] [address] 32965 PLATELET 451 x10EE3/UL High 150 - 450 [facility] Comment on above: Performed By: #### 2 92799 #### [facility],[address] [place] [address] 24188 Platelet mean volume (Bld) [Entitic vol] 9.2 fL Normal 6.6 - 10.5 [facility] Comment on above: Result Comment: AUTO MATED DIFFERENTIAL Performed By: #### 2 96507 #### [facility],[address] [place] [address] 48862 RBC 3.48 x 10EE6/UL Low 4.10 - 5.30 [facility] Comment on above: Performed By: #### 2 31111 #### [facility],[address] [place] [address] SEGS 44 % Low 46 - 76 [facility] Comment on above: Performed By: #### 2 00506 #### [facility],[address] [place] [address] 06777 WBC 6.6 x 10EE3/UL Normal 4.5 - 10.8 [facility] Comment on above: Performed By: #### 2 88825 #### [facility],[address] [place], [place] [address] CMP with eGFRon 05-27-2024 AGE 54 years Normal [facility] Comment on above: Performed By: #### 2 01352 #### [facility],[address] [place] [address] 85517 Albumin [Mass/Vol] 2.8 g/dL Low 3.4 - 5.0 [facility] Comment on above: Performed By: #### 2 61052 #### [facility],[address] [place] [address] 65229 Albumin/Globulin [Mass ratio] 0.7 {ratio} Low 0.9 - 1.6 [facility] Comment on above: Performed By: #### 2 97096 #### [facility],[address] [place] [address] 67808 ALK PHOS 152 U/L High 46 - 116 [facility] Comment on above: Performed By: #### 2 07461 #### [facility],[address] [place] [address] 62549 ALT [Catalytic activity/Vol] 29 U/L Normal 16 - 63 [facility] Comment on above: Performed By: #### 2 46999 #### [facility],[address] [place] [address] 81848 Anion gap [Moles/Vol] 9 mmol/L Low 10 - 20 [facility] Comment on above: Performed By: #### 2 11860 #### [facility],[address] [place] [address] 47740 AST [Catalytic activity/Vol] 33 U/L Normal 13 - 39 [facility] Comment on above: Performed By: #### 2 45220 #### [facility],[address] [place] [address] 43663 B/C RATIO 12 ratio Normal 0 - 30 [facility] Comment on above: Performed By: #### 2 35152 #### [facility],[address] [place] [address] 70981 Bilirubin [Mass/Vol] 0.2 mg/dL Normal 0.2 - 1.0 [facility] Comment on above: Performed By: #### 2 51718 #### [facility],[address] [place] [address] 14713 Calcium [Mass/Vol] 8.9 mg/dL Normal 8.5 - 10.1 [facility] Comment on above: Performed By: #### 2 20586 #### [facility],[address] [place] [address] 48119 Chloride [Moles/Vol] 100 mmol/L Normal 98 - 107 [facility] Comment on above: Performed By: #### 2 24830 #### [facility],[address] [place] [address] 49750 CMP with eGFR Normal [facility] Comment on above: Result Comment: COMP REHENSIVE METABOLIC PANEL Performed By: #### 2 90843 #### [facility],[address] [place] [address] 69347 CO2 [Moles/Vol] 30.9 mmol/L Normal 21.0 - 32.0 [facility] Comment on above: Performed By: #### 2 03177 #### [address] [address] Creatinine [Mass/Vol] 0.67 mg/dL Normal 0.55 - 1.02 [facility] Comment on above: Performed By: #### 2 77081 #### [facility],[address] [place] [address] 41193 GFR/1.73 sq M.predicted among non-blacks MDRD (S/P/Bld) [Vol rate/Area] mL/min/{1.73_m2} Normal 60 - 999 [facility] Comment on above: Performed By: #### 2 15720 #### [address] [address] Result Comment: ACCO RDING TO THE NATIONAL KIDNEY DISEASE EDUCATION PROGRAM(NKDE), A NORMAL eGFR IS A VALUE GREATER THAN OR EQUAL TO 60 ML/MIN/1.73 SQ METERS. CHRONIC KIDNEY DISEASE: <60mL/MIN/1.73 SQ METERS KIDNEY FAILURE: <15mL/MIN/1.73 SQ METERS THIS TEST SHOULD ONLY BE USED FOR PATIENTS 18 YEARS OF AGE AND OLDER. Globulin (S) [Mass/Vol] 4.2 g/dL High 1.5 - 3.8 [facility] Comment on above: Performed By: #### 2 49814 #### [address] [address] Glucose [Mass/Vol] 77 mg/dL Normal 74 - 106 [facility] Comment on above: Performed By: #### 2 48780 #### [address] [address] Potassium [Moles/Vol] 4.3 mmol/L Normal 3.5 - 5.1 [facility] Comment on above: Performed By: #### 2 69166 #### [facility],[address] [place] [address] 21869 Protein [Mass/Vol] 7.0 g/dL Normal 6.4 - 8.2 [facility] Comment on above: Performed By: #### 2 72267 #### [facility],[address] [place] [address] 36722 Sodium [Moles/Vol] 136 mmol/L Normal 136 - 145 [facility] Comment on above: Performed By: #### 2 17660 #### [facility],[address] [place] [address] 98947 Urea nitrogen [Mass/Vol] 8 mg/dL Normal 7 - 18 [facility] Comment on above: Performed By: #### 2 64512 #### [facility],[address] [place] [address] 71793 CK [CCL]on 05-21-2024 CK [Catalytic activity/Vol] 126 U/L Normal 42-196 [facility] Comment on above: Result Comment: [facility] [address] [place] [address] Emiliano Pace III, M.D. [id number] Performed By: #### 2 34940 #### [facility],[address] [place] [address] 02614 C-REACTIVE PROTEINon 025 CRP 8.36 mg/dl High 0.00 - 0.90 [facility] Comment on above: Performed By: #### 2 04702 #### [facility],[address] [place] [address] 45345 CBC + DIFFon 05-20-2024 Baso # 0.03 x10EE3/UL Normal 0.00 - 0.10 [facility] Comment on above: Performed By: #### 2 71663 #### [facility],[address] [place] [address] 58044 Basophils/100 WBC (Bld) 0.3 % Normal 0.0 - 2.0 [facility] Comment on above: Performed By: #### 2 83079 #### [facility],[address] [place] [address] 65678 CBC + DIFF Normal [facility] Comment on above: Result Comment: CBC- COMPLETE BLOOD COUNT Performed By: #### 2 10907 #### [facility],[address] [place] [address] 66144 EO # 0.70 x10EE3/UL High 0.00 - 0.50 [facility] Comment on above: Performed By: #### 2 47395 #### [facility],[address] [place] [address] 28665 Eosinophils/100 WBC (Bld) 8.2 % High 0.0 - 7.0 [facility] Comment on above: Performed By: #### 2 97308 #### [facility],[address] [place], [place] [address] Erythrocyte distribution width (RBC) [Ratio] 18.1 % High 12.0 - 15.6 [facility] Comment on above: Performed By: #### 2 27268 #### [facility],[address] [place] [address] 31206 Hematocrit (Bld) [Volume fraction] 25.0 % Low 34.0 - 46.0 [facility] Comment on above: Performed By: #### 2 92637 #### [facility],[address] [place] [address] 03028 Hemoglobin (Bld) [Mass/Vol] 8.1 g/dL Low 12.0 - 16.0 [facility] Comment on above: Performed By: #### 2 59577 #### [facility],[address] [place] [address] 05767 Lymph # 3.10 x10EE3/UL High 0.80 - 2.80 [facility] Comment on above: Performed By: #### 2 17495 #### [facility],[address] [place] [address] 63909 Lymphocytes/100 WBC (Bld) 36.2 % Normal 20.0 - 45.0 [facility] Comment on above: Performed By: #### 2 10009 #### [facility],[address] [place] [address] MANUAL DIFF N/A Normal [facility] Comment on above: Performed By: #### 2 10455 #### [facility],[address] [place] [address] MCH (RBC) [Entitic mass] 25 pg Low 27 - 33 [facility] Comment on above: Performed By: #### 2 60603 #### [facility],[address] [place] [address] MCHC 32 X10 3 Normal 32 - 36 [facility] Comment on above: Performed By: #### 2 46000 #### [place] [address] MCV (RBC) [Entitic vol] 79 fL Low 80 - 99 [facility] Comment on above: Performed By: #### 2 57247 #### [facility],[address] [place] [address] Real # 0.86 x10EE3/UL Normal 0.20 - 1.00 [facility] Comment on above: Performed By: #### 2 59275 #### [facility],[address] [place] [address] MONOS % 10.1 % High 0.0 - 10.0 [facility] Comment on above: Performed By: #### 2 35386 #### [address] [address] Morphology David (Bld) [Interp] N/A Normal [facility] Comment on above: Performed By: #### 2 29692 #### [facility],[address] [place] [address] Neut # 3.88 x10EE3/UL Normal 1.50 - 7.10 [facility] Comment on above: Performed By: #### 2 85431 #### [facility],[address] [place] [address] 81490 Neutrophils/100 WBC (Bld) 45.2 % Low 46.0 - 76.0 [facility] Comment on above: Performed By: #### 2 72410 #### [facility],[address] [place] [address] 60882 PLATELET 533 x10EE3/UL High 150 - 450 [facility] Comment on above: Performed By: #### 2 02020 #### [facility],[address] [place] [address] 31533 Platelet mean volume (Bld) [Entitic vol] 9.2 fL Normal 6.6 - 10.5 [facility] Comment on above: Result Comment: AUTO MATED DIFFERENTIAL Performed By: #### 2 67014 #### [facility],[address] [place] [address] 42936 RBC 3.18 x 10EE6/UL Low 4.10 - 5.30 [facility] Comment on above: Performed By: #### 2 18886 #### [facility],[address] [place] [address] 86609 WBC 8.6 x 10EE3/UL Normal 4.5 - 10.8 [facility] Comment on above: Performed By: #### 2 60086 #### [facility],[address] [place] [address] 85549 CMP with eGFRon 05-20-2024 AGE 54 years Normal [facility] Comment on above: Performed By: #### 2 32925 #### [facility],[address] [place] [address] 39350 Albumin [Mass/Vol] 2.7 g/dL Low 3.4 - 5.0 [facility] Comment on above: Performed By: #### 2 57773 #### [facility],[address] [place] [address] 49030 Albumin/Globulin [Mass ratio] 0.7 {ratio} Low 0.9 - 1.6 [facility] Comment on above: Performed By: #### 2 74737 #### [facility],[address] [place] [address] 47083 ALK PHOS 151 U/L High 46 - 116 [facility] Comment on above: Performed By: #### 2 43517 #### [facility],[address] [place], [place] [address] ALT [Catalytic activity/Vol] 29 U/L Normal 16 - 63 [facility] Comment on above: Performed By: #### 2 25652 #### [facility],[address] [place] [address] Anion gap [Moles/Vol] 11 mmol/L Normal 10 - 20 [facility] Comment on above: Performed By: #### 2 19560 #### [facility],[address] [place], [place] [address] AST [Catalytic activity/Vol] 25 U/L Normal 13 - 39 [facility] Comment on above: Performed By: #### 2 91589 #### [facility],[address] [place], [place] [address] B/C RATIO 13 ratio Normal 0 - 30 [facility] Comment on above: Performed By: #### 2 16009 #### [facility],[address] [place] [address] 34814 Bilirubin [Mass/Vol] 0.2 mg/dL Normal 0.2 - 1.0 [facility] Comment on above: Performed By: #### 2 07481 #### [facility],[address] [place] [address] 52109 Calcium [Mass/Vol] 8.4 mg/dL Low 8.5 - 10.1 [facility] Comment on above: Performed By: #### 2 16221 #### [facility],[address] [place] [address] 80922 Chloride [Moles/Vol] 100 mmol/L Normal 98 - 107 [facility] Comment on above: Performed By: #### 2 41832 #### [facility],[address] [place] [address] 97859 CMP with eGFR Normal [facility] Comment on above: Result Comment: COMP REHENSIVE METABOLIC PANEL Performed By: #### 2 27629 #### [place] [address] CO2 [Moles/Vol] 25.4 mmol/L Normal 21.0 - 32.0 [facility] Comment on above: Performed By: #### 2 60802 #### [facility],[address] [place] [address] Creatinine [Mass/Vol] 0.71 mg/dL Normal 0.55 - 1.02 [facility] Comment on above: Performed By: #### 2 71139 #### [facility],[address] [place], [place] [address] GFR/1.73 sq M.predicted among non-blacks MDRD (S/P/Bld) [Vol rate/Area] mL/min/{1.73_m2} Normal 60 - 999 [facility] Comment on above: Performed By: #### 2 91152 #### [place] [address] Result Comment: ACCO RDING TO THE NATIONAL KIDNEY DISEASE EDUCATION PROGRAM(NKDE), A NORMAL eGFR IS A VALUE GREATER THAN OR EQUAL TO 60 ML/MIN/1.73 SQ METERS. CHRONIC KIDNEY DISEASE: <60mL/MIN/1.73 SQ METERS KIDNEY FAILURE: <15mL/MIN/1.73 SQ METERS THIS TEST SHOULD ONLY BE USED FOR PATIENTS 18 YEARS OF AGE AND OLDER. Globulin (S) [Mass/Vol] 4.0 g/dL High 1.5 - 3.8 [facility] Comment on above: Performed By: #### 2 94139 #### [place] [id number] Glucose [Mass/Vol] 88 mg/dL Normal 74 - 106 [facility] Comment on above: Performed By: #### 2 66761 #### [facility],[address] [place] [address] 97771 Potassium [Moles/Vol] 4.3 mmol/L Normal 3.5 - 5.1 [facility] Comment on above: Performed By: #### 2 01721 #### [facility],[address] [place] [address] 94930 Protein [Mass/Vol] 6.7 g/dL Normal 6.4 - 8.2 [facility] Comment on above: Performed By: #### 2 95497 #### [facility],[address] [place] [address] 75224 Sodium [Moles/Vol] 132 mmol/L Low 136 - 145 [facility] Comment on above: Performed By: #### 2 22895 #### [facility],[address] [place] [address] 94496 Urea nitrogen [Mass/Vol] 9 mg/dL Normal 7 - 18 [facility] Comment on above: Performed By: #### 2 26179 #### [facility],[address] [place] [address] 00189 CULTURE CATHETER TIP [AULTMA N]on 05-19-2024 CULTURE CATHETER TIP [EFRA] CULTURE CATHETER TIP [EFRA] _CATHETER TIP CULTURE_ GO TO [employer]PS[employer] REPORTS AND ATTACHMENTS FOR SCANNED REPORT 05/24/24.0846.DNP.COMPLET E Normal [facility] Comment on above: Performed By: #### 2 76494 #### [address] [address] CPKon 05-14-2024 CPK Normal [facility] Comment on above: Result Comment: SEE SCANNED REPORT Performed By: #### 2 61972 #### [facility],[address] [place] [address] 68208 C-REACTIVE PROTEINon 025 CRP 3.67 mg/dl High 0.00 - 0.90 [facility] Comment on above: Performed By: #### 2 54805 #### [facility],[address] [place] [address] 21539 CBC + DIFFon 05-13-2024 Baso # 0.02 x10EE3/UL Normal 0.00 - 0.10 [facility] Comment on above: Performed By: #### 2 68145 #### [facility],[address] [place] [address] 84677 Basophils/100 WBC (Bld) 0.3 % Normal 0.0 - 2.0 [facility] Comment on above: Performed By: #### 2 08914 #### [facility],[address] [place] [address] 74476 CBC + DIFF Normal [facility] Comment on above: Result Comment: CBC- COMPLETE BLOOD COUNT Performed By: #### 2 84044 #### [facility],[address] [place] [address] 84748 EO # 0.70 x10EE3/UL High 0.00 - 0.50 [facility] Comment on above: Performed By: #### 2 75532 #### [facility],[address] [place] [address] 40732 Eosinophils/100 WBC (Bld) 8.9 % High 0.0 - 7.0 [facility] Comment on above: Performed By: #### 2 64322 #### [facility],[address] [place] [address] 76086 Erythrocyte distribution width (RBC) [Ratio] 19.2 % High 12.0 - 15.6 [facility] Comment on above: Performed By: #### 2 84062 #### [facility],[address] [place] [address] 36878 Hematocrit (Bld) [Volume fraction] 28.0 % Low 34.0 - 46.0 [facility] Comment on above: Performed By: #### 2 40249 #### [facility],[address] [place] [address] 94036 Hemoglobin (Bld) [Mass/Vol] 8.4 g/dL Low 12.0 - 16.0 [facility] Comment on above: Performed By: #### 2 70421 #### [facility],[address] [place], [place] [address] Lymph # 2.57 x10EE3/UL Normal 0.80 - 2.80 [facility] Comment on above: Performed By: #### 2 18690 #### [facility],[address] [place], [place] [address] Lymphocytes/100 WBC (Bld) 32.4 % Normal 20.0 - 45.0 [facility] Comment on above: Performed By: #### 2 46374 #### [facility],[address] [place], [place] [address] MANUAL DIFF N/A Normal [facility] Comment on above: Performed By: #### 2 67168 #### [facility],[address] [place] [address] 81467 MCH (RBC) [Entitic mass] 24 pg Low 27 - 33 [facility] Comment on above: Performed By: #### 2 05306 #### [facility],[address] [place] [address] 82045 MCHC 30 X10 3 Low 32 - 36 [facility] Comment on above: Performed By: #### 2 84763 #### [facility],[address] [place] [address] 59847 MCV (RBC) [Entitic vol] 81 fL Normal 80 - 99 [facility] Comment on above: Performed By: #### 2 05699 #### [facility],[address] [place] [address] 45124 Real # 0.56 x10EE3/UL Normal 0.20 - 1.00 [facility] Comment on above: Performed By: #### 2 35979 #### [facility],[address] [place] [address] 62299 MONOS % 7.1 % Normal 0.0 - 10.0 [facility] Comment on above: Performed By: #### 2 45176 #### [facility],[address] [place] [address] 33688 Morphology David (Bld) [Interp] N/A Normal [facility] Comment on above: Performed By: #### 2 05164 #### [facility],[address] [place] [address] 43883 Neut # 4.08 x10EE3/UL Normal 1.50 - 7.10 [facility] Comment on above: Performed By: #### 2 53437 #### [facility],[address] [place] [address] 55668 Neutrophils/100 WBC (Bld) 51.4 % Normal 46.0 - 76.0 [facility] Comment on above: Performed By: #### 2 24116 #### [facility],[address] [place] [address] 77661 PLATELET 562 x10EE3/UL High 150 - 450 [facility] Comment on above: Performed By: #### 2 30406 #### [facility],[address] [place] [address] 84996 Platelet mean volume (Bld) [Entitic vol] 9.1 fL Normal 6.6 - 10.5 [facility] Comment on above: Result Comment: AUTO MATED DIFFERENTIAL Performed By: #### 2 86211 #### [facility],[address] [place] [address] 12280 RBC 3.47 x 10EE6/UL Low 4.10 - 5.30 [facility] Comment on above: Performed By: #### 2 86174 #### [facility],[address] [place] [address] 56974 WBC 7.9 x 10EE3/UL Normal 4.5 - 10.8 [facility] Comment on above: Performed By: #### 2 46746 #### [facility],[address] [place] [address] 82964 CMP with eGFRon 05-13-2024 AGE 54 years Normal [facility] Comment on above: Performed By: #### 2 57663 #### [facility],[address] [place] [address] 68146 Albumin [Mass/Vol] 2.6 g/dL Low 3.4 - 5.0 [facility] Comment on above: Performed By: #### 2 55599 #### [facility],[address] [place] [address] 23827 Albumin/Globulin [Mass ratio] 0.6 {ratio} Low 0.9 - 1.6 [facility] Comment on above: Performed By: #### 2 79719 #### [facility],[address] [place] [address] 19047 ALK PHOS 121 U/L High 46 - 116 [facility] Comment on above: Performed By: #### 2 82593 #### [facility],[address] [place] [address] 10105 ALT [Catalytic activity/Vol] 23 U/L Normal 16 - 63 [facility] Comment on above: Performed By: #### 2 08075 #### [facility],[address] [place] [address] 91373 Anion gap [Moles/Vol] 10 mmol/L Normal 10 - 20 [facility] Comment on above: Performed By: #### 2 51663 #### [facility],[address] [place] [address] 88379 AST [Catalytic activity/Vol] 18 U/L Normal 13 - 39 [facility] Comment on above: Performed By: #### 2 36345 #### [facility],[address] [place] [address] 73484 B/C RATIO 15 ratio Normal 0 - 30 [facility] Comment on above: Performed By: #### 2 66242 #### [facility],[address] [place] [address] 65461 Bilirubin [Mass/Vol] 0.2 mg/dL Normal 0.2 - 1.0 [facility] Comment on above: Performed By: #### 2 26480 #### [facility],[address] [place] [address] 18514 Calcium [Mass/Vol] 8.4 mg/dL Low 8.5 - 10.1 [facility] Comment on above: Performed By: #### 2 42948 #### [facility],[address] [place], [place] [address] Chloride [Moles/Vol] 100 mmol/L Normal 98 - 107 [facility] Comment on above: Performed By: #### 2 58645 #### [facility],[address] [place] [address] CMP with eGFR Normal [facility] Comment on above: Result Comment: COMP REHENSIVE METABOLIC PANEL Performed By: #### 2 79779 #### [facility],[address] [place] [address] 97538 CO2 [Moles/Vol] 27.1 mmol/L Normal 21.0 - 32.0 [facility] Comment on above: Performed By: #### 2 63380 #### [facility],[address] [place] [address] 89393 Creatinine [Mass/Vol] 0.92 mg/dL Normal 0.55 - 1.02 [facility] Comment on above: Performed By: #### 2 96260 #### [address] [address] GFR/1.73 sq M.predicted among non-blacks MDRD (S/P/Bld) [Vol rate/Area] mL/min/{1.73_m2} Normal 60 - 999 [facility] Comment on above: Performed By: #### 2 02539 #### [facility],[address] [place] [address] Result Comment: ACCO RDING TO THE NATIONAL KIDNEY DISEASE EDUCATION PROGRAM(NKDE), A NORMAL eGFR IS A VALUE GREATER THAN OR EQUAL TO 60 ML/MIN/1.73 SQ METERS. CHRONIC KIDNEY DISEASE: <60mL/MIN/1.73 SQ METERS KIDNEY FAILURE: <15mL/MIN/1.73 SQ METERS THIS TEST SHOULD ONLY BE USED FOR PATIENTS 18 YEARS OF AGE AND OLDER. Globulin (S) [Mass/Vol] 4.2 g/dL High 1.5 - 3.8 [facility] Comment on above: Performed By: #### 2 55110 #### [place] [address] Glucose [Mass/Vol] 84 mg/dL Normal 74 - 106 [facility] Comment on above: Performed By: #### 2 46734 #### [place] [address] Potassium [Moles/Vol] 4.4 mmol/L Normal 3.5 - 5.1 [facility] Comment on above: Performed By: #### 2 38751 #### [place] [address] Protein [Mass/Vol] 6.8 g/dL Normal 6.4 - 8.2 [facility] Comment on above: Performed By: #### 2 79746 #### [address] [address] Sodium [Moles/Vol] 133 mmol/L Low 136 - 145 [facility] Comment on above: Performed By: #### 2 51205 #### [place] [id number] Urea nitrogen [Mass/Vol] 14 mg/dL Normal 7 - 18 [facility] Comment on above: Performed By: #### 2 36084 #### [place] [id number] CBC panel Auto (Bld)on 05-12 Erythrocyte distribution width (RBC) [Ratio] 20.3 % High 11.5 - 14.5 % [facility] Hematocrit (Bld) [Volume fraction] 25.7 % Low 36.0 - 46.0 % [facility] Hemoglobin (Bld) [Mass/Vol] 7.7 g/dL Low 12.0 - 16.0 g/dL [facility] Interpretation and review of laboratory results Abnormal [facility] MCH (RBC) [Entitic mass] 24.9 pg Low 26.0 - 34.0 pg [facility] MCHC (RBC) [Mass/Vol] 30 g/dL Low 32.0 - 36.0 g/dL [facility] MCV (RBC) [Entitic vol] 83 fL 80 - 100 fL [facility] Nucleated RBC/100 WBC (Bld) [Ratio] 1 % High [facility] Platelets (Bld) [#/Vol] 457 10*3/uL High [facility] RBC (Bld) [#/Vol] 3.09 10*6/uL [facility] WBC (Bld) [#/Vol] 7.8 10*3/uL [facility] Erythrocyte distribution width (RBC) [Ratio] 20.3 % High 11.5-14.5 [facility] Comment on above: Performed By: #### 5 8410-2 ####JANETH Galo ([id number])[facility] ([facility])[address] [place] [address] 28500 Hematocrit (Bld) [Volume fraction] 25.7 % Low 36.0-46.0 [facility] Comment on above: Performed By: #### 5 8410-2 ####JANETH Galo ([id number])[facility] ([facility])[address] [place] [address] 77554 Hemoglobin (Bld) [Mass/Vol] 7.7 g/dL Low 12.0-16.0 [facility] Comment on above: Performed By: #### 5 8410-2 ####JANETH Galo ([id number])[facility] ([facility])[address] [place] [address] MCH (RBC) [Entitic mass] 24.9 pg Low 26.0-34.0 [facility] Comment on above: Performed By: #### 5 8410-2 ####JANETH Galo ([id number])[facility] ([facility])[address] [place] [address] MCHC (RBC) [Mass/Vol] 30.0 g/dL Low 32.0-36.0 [facility] Comment on above: Performed By: #### 5 8410-2 ####JANETH Galo ([id number])[facility] ([facility])[address] [place] [address] MCV (RBC) [Entitic vol] 83 fL Normal 80-100 [facility] Comment on above: Performed By: #### 5 8410-2 ####JANETH Galo ([id number])[facility] ([facility])[address] [place] [address] Nucleated RBC/100 WBC (Bld) [Ratio] 1.0 /100 WBCs High 0.0-0.0 [facility] Comment on above: Performed By: #### 5 8410-2 ####JANETH Galo ([id number])[facility] ([facility])[address] [place] [address] Platelets (Bld) [#/Vol] 457 x10*3/uL High 150-450 [facility] Comment on above: Performed By: #### 5 8410-2 ####JANETH Galo ([id number])[facility] ([facility])[address] [place] [address] RBC (Bld) [#/Vol] 3.09 x10*6/uL Low 4.00-5.20 [facility] Comment on above: Performed By: #### 5 8410-2 ####JANETH Galo ([id number])[facility] ([facility])[address] [place] [address] WBC (Bld) [#/Vol] 7.8 x10*3/uL Normal 4.4-11.3 [facility] Comment on above: Performed By: #### 5 8410-2 ####JANETH Galo ([id number])[facility] ([facility])[address] [place] [address] Comprehensive metabolic 2000 panelon 05-12-2024 Albumin BCP dye [Mass/Vol] 3.1 g/dL Low 3.4 - 5.0 g/dL [facility] ALP [Catalytic activity/Vol] 93 U/L 33 - 110 U/L [facility] ALT With P-5'-P [Catalytic activity/Vol] 12 U/L 7 - 45 U/L [facility] Anion gap [Moles/Vol] 12 mmol/L 10 - 2 0 mmol/L [facility] AST With P-5'-P [Catalytic activity/Vol] 15 U/L 9 - 39 U/L [facility] Bilirubin [Mass/Vol] 0.2 mg/dL 0.0 - 1 .2 mg/dL [facility] Calcium [Mass/Vol] 8.7 mg/dL 8.6 - 10. 6 mg/dL [facility] Chloride [Moles/Vol] 101 mmol/L 98 - 10 7 mmol/L [facility] CO2 [Moles/Vol] 24 mmol/L 21 - 32 mmol/L [facility] Creatinine [Mass/Vol] 0.82 mg/dL 0.50 - 1.05 mg/dL [facility] GFR/1.73 sq M.predicted among non-blacks MDRD (S/P/Bld) [Vol rate/Area] 86 mL/min/{1.73_m2} - PINF [facility] Glucose [Mass/Vol] 105 mg/dL High 74 - 99 mg/dL [facility] Interpretation and review of laboratory results Abnormal [facility] Potassium [Moles/Vol] 4.6 mmol/L 3.5 - 5.3 mmol/L [facility] Protein [Mass/Vol] 6.3 g/dL Low 6.4 - 8.2 g/dL [facility] Sodium [Moles/Vol] 132 mmol/L Low 136 - 145 mmol/L [facility] Urea nitrogen [Mass/Vol] 14 mg/dL 6 - 23 mg/dL [facility] Albumin BCP dye [Mass/Vol] 3.1 g/dL Low 3.4-5.0 [facility] Comment on above: Performed By: #### 2 4323-8 ####JANETH Galo ([id number])[facility] ([facility])[address] [place] [address] ALP [Catalytic activity/Vol] 93 U/L Normal 33-110 [facility] Comment on above: Performed By: #### 2 4323-8 ####JANETH Galo ([id number])[facility] ([facility])[address] [place] [address] ALT With P-5'-P [Catalytic activity/Vol] 12 U/L Normal 7-45 [facility] Comment on above: Result Comment: Tomasa ents treated with Sulfasalazine may generate falsely decreased results for ALT. Performed By: #### 2 4323-8 ####JANETH Galo ([id number])[facility] ([facility])[address] [place] [address] Anion gap [Moles/Vol] 12 mmol/L Normal 10-20 [facility] Comment on above: Performed By: #### 2 0773-8 ####JANETH Galo ([id number])[facility] ([facility])[address] [place] [address] AST With P-5'-P [Catalytic activity/Vol] 15 U/L Normal 9-39 [facility] Comment on above: Performed By: #### 2 1653-8 ####JANETH Galo ([id number])[facility] ([facility])[address] [place] [address] Bilirubin [Mass/Vol] 0.2 mg/dL Normal 0.0-1.2 [facility] Comment on above: Performed By: #### 2 4323-8 ####JANETH RANGELER L ([id number])[facility] ([facility])[address] [place] [address] Calcium [Mass/Vol] 8.7 mg/dL Normal 8.6-10.6 [facility] Comment on above: Performed By: #### 2 4323-8 ####JANETH CONNORMOTZER L ([id number])[facility] ([facility])[address] [place] [address] Chloride [Moles/Vol] 101 mmol/L Normal 98-107 [facility] Comment on above: Performed By: #### 2 4323-8 ####JANETH CONNORMOTZER L ([id number])[facility] ([facility])[address] [place] [address] CO2 [Moles/Vol] 24 mmol/L Normal 21-32 [facility] Comment on above: Performed By: #### 2 4323-8 ####JANETH CONNORMOPIEDADER L ([id number])[facility] ([facility])[address] [place] [address] Creatinine [Mass/Vol] 0.82 mg/dL Normal 0.50-1.05 [facility] Comment on above: Performed By: #### 2 4323-8 ####JANETH CONNORMOTZER L ([id number])[facility] ([facility])[address] [place] [address] Glomerular filtration rate/1.73 sq M.predicted 86 mL/min/1.73m*2 Normal >60 [facility] Comment on above: Result Comment: Calc ulations of estimated GFR are performed using the 2020 CKD-EPI Study Refit equation without the race variable for the IDMS-Traceable creatinine methods.https://jasn.asnjournals.org/content/early/ N.5159916097 Performed By: #### 2 4323-8 ####JANETH CONNORMOTZER L (55060)[facility] ([facility])[address] [place] [address] Glucose [Mass/Vol] 105 mg/dL High 74-99 [facility] Comment on above: Performed By: #### 2 4323-8 ####JANETH Galo ([id number])[facility] ([facility])[address] [place] [address] Potassium [Moles/Vol] 4.6 mmol/L Normal 3.5-5.3 [facility] Comment on above: Performed By: #### 2 4323-8 ####JANETH Galo ([id number])[facility] ([facility])[address] [place] [address] Protein [Mass/Vol] 6.3 g/dL Low 6.4-8.2 [facility] Comment on above: Performed By: #### 2 4323-8 ####JANETH Galo ([id number])[facility] ([facility])[address] [place] [address] Sodium [Moles/Vol] 132 mmol/L Low 136-145 [facility] Comment on above: Performed By: #### 2 4323-8 ####JANETH Galo ([id number])[facility] ([facility])[address] [place] [address] Urea nitrogen [Mass/Vol] 14 mg/dL Normal 6-23 [facility] Comment on above: Performed By: #### 2 4323-8 ####JANETH Galo ([id number])[facility] ([facility])[id number] [place] [address] Bedside Midline Imagingon IMAGING CBC W Auto Differential pane l (Bld)on 05-11-2024 Basophils (Bld) [#/Vol] 0.09 10*3/uL [facility] Basophils/100 WBC (Bld) 1.1 % 0.0 - 2.0 % [facility] Eosinophils (Bld) [#/Vol] 0.7 10*3/uL [facility] Eosinophils/100 WBC (Bld) 8.5 % 0.0 - 6.0 % [facility] Erythrocyte distribution width (RBC) [Ratio] 19.9 % High 11.5 - 14.5 % [facility] Hematocrit (Bld) [Volume fraction] 26.8 % Low 36.0 - 46.0 % [facility] Hemoglobin (Bld) [Mass/Vol] 7.9 g/dL Low 12.0 - 16.0 g/dL [facility] Immature granulocytes (Bld) [#/Vol] 0.03 10*3/uL [facility] Immature granulocytes/100 WBC (Bld) 0.4 % 0.0 - 0.9 % [facility] Interpretation and review of laboratory results Abnormal [facility] Lymphocytes (Bld) [#/Vol] 2.91 10*3/uL [facility] Lymphocytes/100 WBC (Bld) 35.5 % 13.0 - 44.0 % [facility] MCH (RBC) [Entitic mass] 23.9 pg Low 26.0 - 34.0 pg [facility] MCHC (RBC) [Mass/Vol] 29.5 g/dL Low 32.0 - 36.0 g/dL [facility] MCV (RBC) [Entitic vol] 81 fL 80 - 100 fL [facility] Monocytes (Bld) [#/Vol] 0.63 10*3/uL [facility] Monocytes/100 WBC (Bld) 7.7 % 2.0 - 10.0 % [facility] Neutrophils (Bld) [#/Vol] 3.83 10*3/uL [facility] Neutrophils/100 WBC (Bld) 46.8 % 40.0 - 80.0 % [facility] Nucleated RBC/100 WBC (Bld) [Ratio] 0.9 % High [facility] Platelets (Bld) [#/Vol] 492 10*3/uL High [facility] RBC (Bld) [#/Vol] 3.3 10*6/uL Low [facility] WBC (Bld) [#/Vol] 8.2 10*3/uL [facility] Basophils (Bld) [#/Vol] 0.09 x10*3/uL Normal 0.00-0.10 [facility] Comment on above: Performed By: #### 5 7021-8 ####JANETH Galo ([id number])[facility] ([facility])[address] [place] [address] Basophils/100 WBC (Bld) 1.1 % Normal 0.0-2.0 [facility] Comment on above: Performed By: #### 5 7021-8 ####JANETH Galo ([id number])[facility] ([facility])[id number] [place] [address] Eosinophils (Bld) [#/Vol] 0.70 x10*3/uL Normal 0.00-0.70 [facility] Comment on above: Performed By: #### 5 7021-8 ####JANETH Galo ([id number])[facility] ([facility])[id number] [place] [address] Eosinophils/100 WBC (Bld) 8.5 % Normal 0.0-6.0 [facility] Comment on above: Performed By: #### 5 7021-8 ####JANETH Galo ([id number])[facility] ([facility])[id number] [place] [address] 93596 Erythrocyte distribution width (RBC) [Ratio] 19.9 % High 11.5-14.5 [facility] Comment on above: Performed By: #### 5 7021-8 ####JANETH Galo ([id number])[facility] ([facility])[id number] [place] [address] 78[address] Hematocrit (Bld) [Volume fraction] 26.8 % Low 36.0-46.0 [facility] Comment on above: Performed By: #### 5 7021-8 ####JANETH Galo ([id number])[facility] ([facility])[id number] [place] [address] 767[address] Hemoglobin (Bld) [Mass/Vol] 7.9 g/dL Low 12.0-16.0 [facility] Comment on above: Performed By: #### 5 7021-8 ####JANETH Galo ([id number])[facility] ([facility])[address] [place] [address] Immature granulocytes (Bld) [#/Vol] 0.03 x10*3/uL Normal 0.00-0.70 [facility] Comment on above: Performed By: #### 5 7021-8 ####JANETH Galo ([id number])[facility] ([facility])[address] [place] [address] Immature granulocytes/100 WBC (Bld) 0.4 % Normal 0.0-0.9 [facility] Comment on above: Result Comment: Catrachita ture Granulocyte Count (IG) includes promyelocytes, myelocytes and metamyelocytes but does not include bands. Percent differential counts (%) should be interpreted in the context of the absolute cell counts (cells/UL). Performed By: #### 5 7021-8 ####JANETH Galo ([id number])[facility] ([facility])[address] [place] [address] Lymphocytes (Bld) [#/Vol] 2.91 x10*3/uL Normal 1.20-4.80 [facility] Comment on above: Performed By: #### 5 7021-8 ####JANETH Galo ([id number])[facility] ([facility])[address] [place] [address] Lymphocytes/100 WBC (Bld) 35.5 % Normal 13.0-44.0 [facility] Comment on above: Performed By: #### 5 7021-8 ####JANETH Galo ([id number])[facility] ([facility])[address] [place] [address] MCH (RBC) [Entitic mass] 23.9 pg Low 26.0-34.0 [facility] Comment on above: Performed By: #### 5 7021-8 ####JANETH Galo ([id number])[facility] ([facility])[address] [place] [address] MCHC (RBC) [Mass/Vol] 29.5 g/dL Low 32.0-36.0 [facility] Comment on above: Performed By: #### 5 7021-8 ####JANETH Galo ([id number])[facility] ([facility])[address] [place] [address] MCV (RBC) [Entitic vol] 81 fL Normal 80-100 [facility] Comment on above: Performed By: #### 5 7021-8 ####JANETH Galo ([id number])[facility] ([facility])[address] [place] [address] Monocytes (Bld) [#/Vol] 0.63 x10*3/uL Normal 0.10-1.00 [facility] Comment on above: Performed By: #### 5 7021-8 ####JANETH Galo ([id number])[facility] ([facility])[address] [place] [address] Monocytes/100 WBC (Bld) 7.7 % Normal 2.0-10.0 [facility] Comment on above: Performed By: #### 5 7021-8 ####JANETH Galo ([id number])[facility] ([facility])[address] [place] [address] Neutrophils (Bld) [#/Vol] 3.83 x10*3/uL Normal 1.20-7.70 [facility] Comment on above: Result Comment: Perc ent differential counts (%) should be interpreted in the context of the absolute cell counts (cells/uL). Performed By: #### 5 7021-8 ####JANETH Galo ([id number])[facility] ([facility])[address] [place] [address] Neutrophils/100 WBC (Bld) 46.8 % Normal 40.0-80.0 [facility] Comment on above: Performed By: #### 5 7021-8 ####JANETH Galo ([id number])[facility] ([facility])[address] [place] [address] Nucleated RBC/100 WBC (Bld) [Ratio] 0.9 /100 WBCs High 0.0-0.0 [facility] Comment on above: Performed By: #### 5 7021-8 ####JANETH Galo ([id number])[facility] ([facility])[address] [place] [address] Platelets (Bld) [#/Vol] 492 x10*3/uL High 150-450 [facility] Comment on above: Performed By: #### 5 7021-8 ####JANETH Galo ([id number])[facility] ([facility])[address] [place] [address] RBC (Bld) [#/Vol] 3.30 x10*6/uL Low 4.00-5.20 [facility] Comment on above: Performed By: #### 5 7021-8 ####JANETH Galo ([id number])[facility] ([facility])[address] [place] [address] WBC (Bld) [#/Vol] 8.2 x10*3/uL Normal 4.4-11.3 [facility] Comment on above: Performed By: #### 5 7021-8 ####JANETH Galo ([id number])[facility] ([facility])[address] [place] [address] Comprehensive metabolic 2000 panelon 05-11-2024 Albumin BCP dye [Mass/Vol] 3.3 g/dL Low 3.4 - 5.0 g/dL [facility] ALP [Catalytic activity/Vol] 96 U/L 33 - 110 U/L [facility] ALT With P-5'-P [Catalytic activity/Vol] 12 U/L 7 - 45 U/L [facility] Anion gap [Moles/Vol] 15 mmol/L 10 - 2 0 mmol/L [facility] AST With P-5'-P [Catalytic activity/Vol] 17 U/L 9 - 39 U/L [facility] Bilirubin [Mass/Vol] 0.2 mg/dL 0.0 - 1 .2 mg/dL [facility] Calcium [Mass/Vol] 8.9 mg/dL 8.6 - 10. 6 mg/dL [facility] Chloride [Moles/Vol] 101 mmol/L 98 - 10 7 mmol/L [facility] CO2 [Moles/Vol] 23 mmol/L 21 - 32 mmol/L [facility] Creatinine [Mass/Vol] 0.8 mg/dL 0.50 - 1.05 mg/dL [facility] GFR/1.73 sq M.predicted among non-blacks MDRD (S/P/Bld) [Vol rate/Area] 89 mL/min/{1.73_m2} - PINF [facility] Glucose [Mass/Vol] 95 mg/dL 74 - 99 mg/dL [facility] Interpretation and review of laboratory results Abnormal [facility] Potassium [Moles/Vol] 4.9 mmol/L 3.5 - 5.3 mmol/L [facility] Protein [Mass/Vol] 6.7 g/dL 6.4 - 8.2 g/dL [facility] Sodium [Moles/Vol] 134 mmol/L Low 136 - 145 mmol/L [facility] Urea nitrogen [Mass/Vol] 12 mg/dL 6 - 23 mg/dL [facility] Albumin BCP dye [Mass/Vol] 3.3 g/dL Low 3.4-5.0 [facility] Comment on above: Performed By: #### 2 4323-8 ####JANETH Galo ([id number])[facility] ([facility])[address] [place] [address] ALP [Catalytic activity/Vol] 96 U/L Normal 33-110 [facility] Comment on above: Performed By: #### 2 4323-8 ####JANETH Galo ([id number])[facility] ([facility])[address] [place] [address] ALT With P-5'-P [Catalytic activity/Vol] 12 U/L Normal 7-45 [facility] Comment on above: Result Comment: Tomasa ents treated with Sulfasalazine may generate falsely decreased results for ALT. Performed By: #### 2 7233-8 ####JANETH Galo ([id number])[facility] ([facility])[address] [place] [address] Anion gap [Moles/Vol] 15 mmol/L Normal 10-20 [facility] Comment on above: Performed By: #### 2 4323-8 ####JANETH Galo ([id number])[facility] ([facility])[address] [place] [address] AST With P-5'-P [Catalytic activity/Vol] 17 U/L Normal 9-39 [facility] Comment on above: Performed By: #### 2 4323-8 ####JANETH Galo ([id number])[facility] ([facility])[address] [place] [address] Bilirubin [Mass/Vol] 0.2 mg/dL Normal 0.0-1.2 [facility] Comment on above: Performed By: #### 2 4323-8 ####JANETH Galo ([id number])[facility] ([facility])[address] [place] [address] Calcium [Mass/Vol] 8.9 mg/dL Normal 8.6-10.6 [facility] Comment on above: Performed By: #### 2 4323-8 ####JANETH Galo ([id number])[facility] ([facility])[address] [place] [address] Chloride [Moles/Vol] 101 mmol/L Normal 98-107 [facility] Comment on above: Performed By: #### 2 4323-8 ####JANETH GRAFF L ([id number])[facility] ([facility])[address] [place] [address] CO2 [Moles/Vol] 23 mmol/L Normal 21-32 [facility] Comment on above: Performed By: #### 2 4323-8 ####JANETH Galo ([id number])[facility] ([facility])[address] [place] [address] Creatinine [Mass/Vol] 0.80 mg/dL Normal 0.50-1.05 [facility] Comment on above: Performed By: #### 2 4323-8 ####JANETH Galo ([id number])[facility] ([facility])[address]35 [place] [address] Glomerular filtration rate/1.73 sq M.predicted 89 mL/min/1.73m*2 Normal >60 [facility] Comment on above: Result Comment: Calc ulations of estimated GFR are performed using the 2020 CKD-EPI Study Refit equation without the race variable for the IDMS-Traceable creatinine methods.https://jasn.asnjournals.org/content/early// N.8194274276 Performed By: #### 2 4323-8 ####JANETH Galo ([id number])[facility] ([facility])[address] [place] [address] Glucose [Mass/Vol] 95 mg/dL Normal 74-99 [facility] Comment on above: Performed By: #### 2 4323-8 ####JANETH Galo ([id number])[facility] ([facility])[address] [place] [address] Potassium [Moles/Vol] 4.9 mmol/L Normal 3.5-5.3 [facility] Comment on above: Performed By: #### 2 4323-8 ####JANETH Galo ([id number])[facility] ([facility])[address] [place] [address] Protein [Mass/Vol] 6.7 g/dL Normal 6.4-8.2 [facility] Comment on above: Performed By: #### 2 4323-8 ####JANETH GRAFF L ([id number])[facility] ([facility])[address] [place] [address] Sodium [Moles/Vol] 134 mmol/L Low 136-145 [facility] Comment on above: Performed By: #### 2 4323-8 ####JANETH Galo ([id number])[facility] ([facility])[address] [place] [address] Urea nitrogen [Mass/Vol] 12 mg/dL Normal 6-23 [facility] Comment on above: Performed By: #### 2 4323-8 ####JANETH Galo ([id number])[facility] ([facility])[address] [place] [address] Heparin Assay, UFHon 025 Heparin unfractionated Chromogenic method Qn (PPP) 0.5 See Comment Below for Therapeutic Ranges IU/mL [facility] Heparin unfractionated Chrom ogenic method Qn (PPP)on 05-11-2024 Interpretation and review of laboratory results Normal [facility] MIDLINE BEDSIDE IMAGINGon MIDLINE BEDSIDE IMAGING These images are not reportable by radiology and will not be interpreted by Radiologists. Normal [facility] Fungal Culture/SmearOrdered By: Pat Hernandez on 05-10-2024 Fungus identified Cx Nom (Unsp spec) 5 colonies Mendy parapsilosis Abnormal [facility] Fungus identified Cx Nom (Un sp spec)Ordered By: Pat Hernandez on 05-10-2024 Fungus identified Fungus stain Nom (Unsp spec) No fungal elements seen [facility] Interpretation and review of laboratory results Abnormal [facility] Heparin Assay, UFHon 025 Heparin unfractionated Chromogenic method Qn (PPP) 0.6 See Comment Below for Therapeutic Ranges IU/mL [facility] Heparin unfractionated Chromogenic method Qn (PPP) 0.2 See Comment Below for Therapeutic Ranges IU/mL [facility] Heparin unfractionated Chromogenic method Qn (PPP) 1 See Comment Below for Therapeutic Ranges IU/mL [facility] Heparin Assay, UFHOrdered By : Tennille Day on 05-10-2024 Heparin unfractionated Chromogenic method Qn (PPP) 0.6 See Comment Below for Therapeutic Ranges IU/mL [facility] Heparin unfractionated Chrom ogenic method Qn (PPP)on 05-10-2024 Interpretation and review of laboratory results Normal [facility] Interpretation and review of laboratory results Normal [facility] Interpretation and review of laboratory results Normal [facility] Heparin unfractionated Chrom ogenic method Qn (PPP)Ordered By: Tennille Day on 05-10-2024 Interpretation and review of laboratory results Normal [facility] Heparin.unfractionatedon Heparin unfractionated Chromogenic method Qn (PPP) 0.5 IU/mL Normal See Comment Below for Therapeutic Ranges [facility] Comment on above: Order Comment: Obtai [...] please refer to local Pharmacy and the [facility] Guidelines for Anticoagulation Therapy available on the [facility] intranet at: [email or web address]_Guidelines_[email or web address].aspx Performed By: #### 3 274-8 ####JANETH Galo ([id number])[facility] ([facility])[address] [place] [address] Heparin unfractionated Chromogenic method Qn (PPP) 0.6 IU/mL Normal See Comment Below for Therapeutic Ranges [facility] Comment on above: Order Comment: Obtai [...] please refer to local Pharmacy and the [facility] Guidelines for Anticoagulation Therapy available on the [facility] intranet at: [email or web address]_[email or web address] Performed By: #### 3 274-8 ####JANETH Galo ([id number])[facility] ([facility])[address] [place] [address] Heparin unfractionated Chromogenic method Qn (PPP) 0.2 IU/mL Normal See Comment Below for Therapeutic Ranges [facility] Comment on above: Order Comment: Obtai [...] please refer to local Pharmacy and the [facility] Guidelines for Anticoagulation Therapy available on the [facility] intranet at: [email or web address]_[email or web address] Performed By: #### 3 274-8 ####JANETH Galo ([id number])[facility] ([facility])[address] [place] [address] Heparin unfractionated Chromogenic method Qn (PPP) 0.6 IU/mL Normal See Comment Below for Therapeutic Ranges [facility] Comment on above: Order Comment: Obtai [...] please refer to local Pharmacy and the [facility] Guidelines for Anticoagulation Therapy available on the [facility] intranet at: [email or web address]_[email or web address].aspx Performed By: #### 3 274-8 ####JANETH Galo ([id number])[facility] ([facility])[address] [place], [place] [address] Heparin unfractionated Chromogenic method Qn (PPP) 1.0 IU/mL Normal See Comment Below for Therapeutic Ranges [facility] Comment on above: Order Comment: Obtai [...] please refer to local Pharmacy and the [facility] Guidelines for Anticoagulation Therapy available on the [facility] intranet at: [email or web address]_Guidelines_for_[email or web address].aspx Performed By: #### 3 274-8 ####JANETH Galo ([id number])[facility] ([facility])[address] [place] [address] Basic metabolic 2000 panelon 05-09-2024 Anion gap [Moles/Vol] 11 mmol/L 10 - 2 0 mmol/L [facility] Calcium [Mass/Vol] 8.7 mg/dL 8.6 - 10. 6 mg/dL [facility] Chloride [Moles/Vol] 102 mmol/L 98 - 10 7 mmol/L [facility] CO2 [Moles/Vol] 26 mmol/L 21 - 32 mmol/L [facility] Creatinine [Mass/Vol] 0.81 mg/dL 0.50 - 1.05 mg/dL [facility] GFR/1.73 sq M.predicted among non-blacks MDRD (S/P/Bld) [Vol rate/Area] 87 mL/min/{1.73_m2} - PINF [facility] Glucose [Mass/Vol] 96 mg/dL 74 - 99 mg/dL [facility] Interpretation and review of laboratory results Abnormal [facility] Potassium [Moles/Vol] 4.6 mmol/L 3.5 - 5.3 mmol/L [facility] Sodium [Moles/Vol] 134 mmol/L Low 136 - 145 mmol/L [facility] Urea nitrogen [Mass/Vol] 15 mg/dL 6 - 23 mg/dL [facility] Anion gap [Moles/Vol] 11 mmol/L Normal 10-20 [facility] Comment on above: Performed By: #### 2 4321-2 ####JANETH GRAFF L ([id number])[facility] ([facility])[address] [place] [address] Calcium [Mass/Vol] 8.7 mg/dL Normal 8.6-10.6 [facility] Comment on above: Performed By: #### 2 4321-2 ####JANETH RANGELER L ([id number])[facility] ([facility])[address] [place] [address] Chloride [Moles/Vol] 102 mmol/L Normal 98-107 [facility] Comment on above: Performed By: #### 2 4321-2 ####JANETH GRAFF L ([id number])[facility] ([facility])[address] [place] [address] CO2 [Moles/Vol] 26 mmol/L Normal 21-32 [facility] Comment on above: Performed By: #### 2 4321-2 ####JANETH GRAFF L ([id number])[facility] ([facility])[address] [place] [address] Creatinine [Mass/Vol] 0.81 mg/dL Normal 0.50-1.05 [facility] Comment on above: Performed By: #### 2 4321-2 ####JANETH MCDONALDTZLETI L ([id number])[facility] ([facility])[address] [place] [address] Glomerular filtration rate/1.73 sq M.predicted 87 mL/min/1.73m*2 Normal >60 [facility] Comment on above: Result Comment: Calc ulations of estimated GFR are performed using the 2020 CKD-EPI Study Refit equation without the race variable for the IDMS-Traceable creatinine methods.https://jasn.asnjournals.org/content/early// N.3876381118 Performed By: #### 2 4321-2 ####JANETH Galo ([id number])[facility] ([facility])[address] [place] [address] Glucose [Mass/Vol] 96 mg/dL Normal 74-99 [facility] Comment on above: Performed By: #### 2 4321-2 ####JANETH Galo ([id number])[facility] ([facility])[address] [place] [address] Potassium [Moles/Vol] 4.6 mmol/L Normal 3.5-5.3 [facility] Comment on above: Performed By: #### 2 4321-2 ####JANETH Galo ([id number])[facility] ([facility])[address]225 [place] [address] Sodium [Moles/Vol] 134 mmol/L Low 136-145 [facility] Comment on above: Performed By: #### 2 4321-2 ####JANETH Galo ([id number])[facility] ([facility])[address]24 [place] [address] Urea nitrogen [Mass/Vol] 15 mg/dL Normal 6-23 [facility] Comment on above: Performed By: #### 2 4321-2 ####JANETH GRAFF L ([id number])[facility] ([facility])[address] [place] [address] CBC panel Auto (Bld)on 05-09 Erythrocyte distribution width (RBC) [Ratio] 19.3 % High 11.5 - 14.5 % [facility] Hematocrit (Bld) [Volume fraction] 28.6 % Low 36.0 - 46.0 % [facility] Hemoglobin (Bld) [Mass/Vol] 8.2 g/dL Low 12.0 - 16.0 g/dL [facility] Interpretation and review of laboratory results Abnormal [facility] MCH (RBC) [Entitic mass] 24.3 pg Low 26.0 - 34.0 pg [facility] MCHC (RBC) [Mass/Vol] 28.7 g/dL Low 32.0 - 36.0 g/dL [facility] MCV (RBC) [Entitic vol] 85 fL 80 - 100 fL [facility] Nucleated RBC/100 WBC (Bld) [Ratio] 1.1 % High [facility] Platelets (Bld) [#/Vol] 559 10*3/uL High [facility] RBC (Bld) [#/Vol] 3.38 10*6/uL [facility] WBC (Bld) [#/Vol] 8.5 10*3/uL [facility] Erythrocyte distribution width (RBC) [Ratio] 19.3 % High 11.5-14.5 [facility] Comment on above: Performed By: #### 5 8410-2 ####JANETH Galo ([id number])[facility] ([facility])[address] [place] [address] Hematocrit (Bld) [Volume fraction] 28.6 % Low 36.0-46.0 [facility] Comment on above: Performed By: #### 5 8410-2 ####JANETH Galo ([id number])[facility] ([facility])[address] [place] [address] Hemoglobin (Bld) [Mass/Vol] 8.2 g/dL Low 12.0-16.0 [facility] Comment on above: Performed By: #### 5 8410-2 ####JANETH Galo ([id number])[facility] ([facility])[address] [place] [address] MCH (RBC) [Entitic mass] 24.3 pg Low 26.0-34.0 [facility] Comment on above: Performed By: #### 5 8410-2 ####JANETH Galo ([id number])[facility] ([facility])[address] [place] [address] MCHC (RBC) [Mass/Vol] 28.7 g/dL Low 32.0-36.0 [facility] Comment on above: Performed By: #### 5 8410-2 ####JANETH Galo ([id number])[facility] ([facility])[address]93 [place] [address] MCV (RBC) [Entitic vol] 85 fL Normal 80-100 [facility] Comment on above: Performed By: #### 5 8410-2 ####JANETH Galo ([id number])[facility] ([facility])[address]756 [place] [address] Nucleated RBC/100 WBC (Bld) [Ratio] 1.1 /100 WBCs High 0.0-0.0 [facility] Comment on above: Performed By: #### 5 8410-2 ####JANETH Galo ([id number])[facility] ([facility])[address] [place] [address] Platelets (Bld) [#/Vol] 559 x10*3/uL High 150-450 [facility] Comment on above: Performed By: #### 5 8410-2 ####JANETH Galo ([id number])[facility] ([facility])[address] [place] [address] RBC (Bld) [#/Vol] 3.38 x10*6/uL Low 4.00-5.20 [facility] Comment on above: Performed By: #### 5 8410-2 ####JANETH Galo ([id number])[facility] ([facility])[address] [place] [address] WBC (Bld) [#/Vol] 8.5 x10*3/uL Normal 4.4-11.3 [facility] Comment on above: Performed By: #### 5 8410-2 ####JANETH GRAFF L ([id number])[facility] ([facility])[address] [place] [address] Coagulation surface inducedo n 05-09-2024 aPTT Coag (PPP) [Time] 40 s High 26-36 [facility] Comment on above: Order Comment: Basel ine aPTT before initiating heparin infusion. Nursing to release order.The APTT is no longer used for monitoring Unfractionated Heparin Therapy. For monitoring Heparin Therapy, use the Heparin Assay. Performed By: #### 1 4979-9 ####JANETH Galo ([id number])[facility] ([facility])[address] [place] [address] Heparin Assay, UFHon 025 Heparin unfractionated Chromogenic method Qn (PPP) 0.1 See Comment Below for Therapeutic Ranges IU/mL [facility] Heparin unfractionated Chrom ogenic method Qn (PPP)on 05-09-2024 Interpretation and review of laboratory results Normal [facility] Heparin.unfractionatedon Heparin unfractionated Chromogenic method Qn (PPP) 0.1 IU/mL Normal See Comment Below for Therapeutic Ranges [facility] Comment on above: Order Comment: Obtai [...] please refer to local Pharmacy and the [facility] Guidelines for Anticoagulation Therapy available on the [facility] intranet at: [email or web address]_Guidelines_for_[email or web address].aspx Performed By: #### 3 274-8 ####JANETH Galo ([id number])[facility] ([facility])[address] [place] [address] No Panel Informationon 05-09 [facility] US.doppler Lower extremity v ein - bilateralon 05-09-2024 MMODAL [facility] MMODAL [facility] Work Phone: Radiology Study observation (narrative) [facility] Work Phone: US.doppler Lower extremity v ein - bilateralOrdered By: Omkar Estrella on 05-09-2024 [facility] Work Phone: VASC US LOWER EXTREMITY VENO US DUPLEX BILATERALon 05-09-2024 VASC US LOWER EXTREMITY VENOUS DUPLEX BILATERAL Normal [facility] aPTT - baselineon 05-09-2024 aPTT Coag (PPP) [Time] 40 s High [facility] aPTT Coag (PPP) [Time]on Interpretation and review of laboratory results Abnormal [facility] Bacteria identified Cx Nom ( Unsp spec)Ordered By: Bailee Galloway on 05-08-2024 Microscopic observation Gram stain Nom (Unsp spec) (1+) Rare Polymorphonuclear leukocytes [facility] Microscopic observation Gram stain Nom (Unsp spec) No organisms seen [facility] Basic metabolic 2000 panelon 05-08-2024 Anion gap [Moles/Vol] 12 mmol/L 10 - 2 0 mmol/L [facility] Calcium [Mass/Vol] 8.3 mg/dL Low 8.6 - 10. 6 mg/dL [facility] Chloride [Moles/Vol] 103 mmol/L 98 - 10 7 mmol/L [facility] CO2 [Moles/Vol] 24 mmol/L 21 - 32 mmol/L [facility] Creatinine [Mass/Vol] 0.66 mg/dL 0.50 - 1.05 mg/dL [facility] eGFR - PINF [facility] Glucose [Mass/Vol] 85 mg/dL 74 - 99 mg/dL [facility] Interpretation and review of laboratory results Abnormal [facility] Potassium [Moles/Vol] 4.3 mmol/L 3.5 - 5.3 mmol/L [facility] Sodium [Moles/Vol] 135 mmol/L Low 136 - 145 mmol/L [facility] Urea nitrogen [Mass/Vol] 14 mg/dL 6 - 23 mg/dL [facility] Anion gap [Moles/Vol] 12 mmol/L Normal 10-20 [facility] Comment on above: Performed By: #### 2 4321-2 ####JANETH Galo ([id number])[facility] ([facility])[address] [place] [address] Calcium [Mass/Vol] 8.3 mg/dL Low 8.6-10.6 [facility] Comment on above: Performed By: #### 2 4321-2 ####JANETH Galo ([id number])[facility] ([facility])[address] [place] [address] Chloride [Moles/Vol] 103 mmol/L Normal 98-107 [facility] Comment on above: Performed By: #### 2 4321-2 ####JANETH Galo ([id number])[facility] ([facility])[address] [place] [address] CO2 [Moles/Vol] 24 mmol/L Normal 21-32 [facility] Comment on above: Performed By: #### 2 4321-2 ####JAENTH Galo ([id number])[facility] ([facility])[address] [place] [address] Creatinine [Mass/Vol] 0.66 mg/dL Normal 0.50-1.05 [facility] Comment on above: Performed By: #### 2 4321-2 ####JANETH Galo ([id number])[facility] ([facility])[address] [place] [address] GFR/1.73 sq M.predicted MDRD (S/P/Bld) [Vol rate/Area] mL/min/{1.73_m2} Normal >60 [facility] Comment on above: Result Comment: Calc ulations of estimated GFR are performed using the 2020 CKD-EPI Study Refit equation without the race variable for the IDMS-Traceable creatinine methods.https://jasn.asnjournals.org/content/early/ N.1968090079 Performed By: #### 2 4321-2 ####JANETH Galo ([id number])[facility] ([facility])[address] [place] [address] Glucose [Mass/Vol] 85 mg/dL Normal 74-99 [facility] Comment on above: Performed By: #### 2 4321-2 ####JANETH Galo ([id number])[facility] ([facility])[address] [place] [address] Potassium [Moles/Vol] 4.3 mmol/L Normal 3.5-5.3 [facility] Comment on above: Performed By: #### 2 4321-2 ####JANETH Galo ([id number])[facility] ([facility])[address] [place] [address] Sodium [Moles/Vol] 135 mmol/L Low 136-145 [facility] Comment on above: Performed By: #### 2 4321-2 ####JANETH Galo ([id number])[facility] ([facility])[address] [place] [address] Urea nitrogen [Mass/Vol] 14 mg/dL Normal 6-23 [facility] Comment on above: Performed By: #### 2 4321-2 ####JANETH Galo ([id number])[facility] ([facility])[address] [place] [address] Blood type and Indirect anti body screen panel (Bld)on 05-08-2024 ABO group Nom (Bld) A [facility] Blood group antibody screen Ql Negative [facility] D Ag Ql (Bld) Positive [facility] ABO group Nom (Bld) A Normal [facility] Comment on above: Performed By: #### 3 4532-2 ####JANETH Galo ([id number])[facility] ([facility])[address] [place] [address] Blood group antibody screen Ql Negative [facility] Comment on above: Performed By: #### 3 4532-2 ####JANETH Galo ([id number])[facility] ([facility])[address] [facility] [address] D Ag Ql (Bld) Positive [facility] Comment on above: Performed By: #### 3 453-2 ####JANETH Galo ([id number])[facility] ([facility])[address] [place] [address] CBC panel Auto (Bld)on 05-08 Erythrocyte distribution width (RBC) [Ratio] 19.4 % High 11.5 - 14.5 % [facility] Hematocrit (Bld) [Volume fraction] 29.5 % Low 36.0 - 46.0 % [facility] Hemoglobin (Bld) [Mass/Vol] 8.6 g/dL Low 12.0 - 16.0 g/dL [facility] Interpretation and review of laboratory results Abnormal [facility] MCH (RBC) [Entitic mass] 24.8 pg Low 26.0 - 34.0 pg [facility] MCHC (RBC) [Mass/Vol] 29.2 g/dL Low 32.0 - 36.0 g/dL [facility] MCV (RBC) [Entitic vol] 85 fL 80 - 100 fL [facility] Nucleated RBC/100 WBC (Bld) [Ratio] 0.7 % High [facility] Platelets (Bld) [#/Vol] 548 10*3/uL High [facility] RBC (Bld) [#/Vol] 3.47 10*6/uL [facility] WBC (Bld) [#/Vol] 8.5 10*3/uL [facility] Erythrocyte distribution width (RBC) [Ratio] 19.4 % High 11.5-14.5 [facility] Comment on above: Performed By: #### 5 8410-2 ####JANETH Galo ([id number])[facility] ([facility])[address] [place] [address] Hematocrit (Bld) [Volume fraction] 29.5 % Low 36.0-46.0 [facility] Comment on above: Performed By: #### 5 8410-2 ####JANETH Galo ([id number])[facility] ([facility])[address] [place] [address] Hemoglobin (Bld) [Mass/Vol] 8.6 g/dL Low 12.0-16.0 [facility] Comment on above: Performed By: #### 5 8410-2 ####JANETH Galo ([id number])[facility] ([facility])[address] [place] [address] MCH (RBC) [Entitic mass] 24.8 pg Low 26.0-34.0 [facility] Comment on above: Performed By: #### 5 8410-2 ####JANETH Galo ([id number])[facility] ([facility])[address] [place] [address] MCHC (RBC) [Mass/Vol] 29.2 g/dL Low 32.0-36.0 [facility] Comment on above: Performed By: #### 5 8410-2 ####JANETH Galo ([id number])[facility] ([facility])[address] [place] [address] MCV (RBC) [Entitic vol] 85 fL Normal 80-100 [facility] Comment on above: Performed By: #### 5 8410-2 ####JANETH Galo ([id number])[facility] ([facility])[address]207 [place] [address] Nucleated RBC/100 WBC (Bld) [Ratio] 0.7 /100 WBCs High 0.0-0.0 [facility] Comment on above: Performed By: #### 5 8410-2 ####JANETH Galo ([id number])[facility] ([facility])[address] [place] [address] Platelets (Bld) [#/Vol] 548 x10*3/uL High 150-450 [facility] Comment on above: Performed By: #### 5 8410-2 ####JANETH Galo ([id number])[facility] ([facility])[address] [place] [address] RBC (Bld) [#/Vol] 3.47 x10*6/uL Low 4.00-5.20 [facility] Comment on above: Performed By: #### 5 8410-2 ####JANETH Galo ([id number])[facility] ([facility])[address] [place] [address] WBC (Bld) [#/Vol] 8.5 x10*3/uL Normal 4.4-11.3 [facility] Comment on above: Performed By: #### 5 8410-2 ####JANETH Galo ([id number])[facility] ([facility])[address] [place] [address] Erythrocyte distribution width (RBC) [Ratio] 19.4 % High 11.5 - 14.5 % [facility] Hematocrit (Bld) [Volume fraction] 23.8 % Low 36.0 - 46.0 % [facility] Hemoglobin (Bld) [Mass/Vol] 6.9 g/dL Low 12.0 - 16.0 g/dL [facility] Interpretation and review of laboratory results Abnormal [facility] MCH (RBC) [Entitic mass] 24 pg Low 26.0 - 34.0 pg [facility] MCHC (RBC) [Mass/Vol] 29 g/dL Low 32.0 - 36.0 g/dL [facility] MCV (RBC) [Entitic vol] 83 fL 80 - 100 fL [facility] Nucleated RBC/100 WBC (Bld) [Ratio] 0.8 % High [facility] Platelets (Bld) [#/Vol] 574 10*3/uL High [facility] RBC (Bld) [#/Vol] 2.87 10*6/uL Low [facility] WBC (Bld) [#/Vol] 8.3 10*3/uL [facility] Erythrocyte distribution width (RBC) [Ratio] 19.4 % High 11.5-14.5 [facility] Comment on above: Performed By: #### 5 8410-2 ####JANETH Galo ([id number])[facility] ([facility])[address] [place] [address] Hematocrit (Bld) [Volume fraction] 23.8 % Low 36.0-46.0 [facility] Comment on above: Performed By: #### 5 8410-2 ####JANETH Galo ([id number])[facility] ([facility])[address] [place] [address] Hemoglobin (Bld) [Mass/Vol] 6.9 g/dL Low 12.0-16.0 [facility] Comment on above: Performed By: #### 5 8410-2 ####JANETH Galo ([id number])[facility] ([facility])[address] [place] [address] MCH (RBC) [Entitic mass] 24.0 pg Low 26.0-34.0 [facility] Comment on above: Performed By: #### 5 8410-2 ####JANETH Galo ([id number])[facility] ([facility])[address] [place] [address] MCHC (RBC) [Mass/Vol] 29.0 g/dL Low 32.0-36.0 [facility] Comment on above: Performed By: #### 5 8410-2 ####JANETH Galo ([id number])[facility] ([facility])[address] [place] [address] MCV (RBC) [Entitic vol] 83 fL Normal 80-100 [facility] Comment on above: Performed By: #### 5 8410-2 ####JANETH Galo ([id number])[facility] ([facility])[address] [place] [address] Nucleated RBC/100 WBC (Bld) [Ratio] 0.8 /100 WBCs High 0.0-0.0 [facility] Comment on above: Performed By: #### 5 8410-2 ####JANETH Galo ([id number])[facility] ([facility])[address] [place] [address] Platelets (Bld) [#/Vol] 574 x10*3/uL High 150-450 [facility] Comment on above: Performed By: #### 5 8410-2 ####JANETH Galo ([id number])[facility] ([facility])[address] [place] [address] RBC (Bld) [#/Vol] 2.87 x10*6/uL Low 4.00-5.20 [facility] Comment on above: Performed By: #### 5 8410-2 ####JANETH Galo ([id number])[facility] ([facility])[address] [place] [address] WBC (Bld) [#/Vol] 8.3 x10*3/uL Normal 4.4-11.3 [facility] Comment on above: Performed By: #### 5 8410-2 ####JANETH Galo ([id number])[facility] ([facility])[address] [place] [address] Prepare RBC: 1 Unitson 05-08 Blood Expiration Date 05/27/2024 11:59:00 PM EDT [facility] Dispense Status TR [facility] PRODUCT BLOOD TYPE 6200 [facility] PRODUCT CODE [id number] [facility] Unit ABO A [facility] Unit Number [id number] [facility] Unit RH Positive [facility] UNIT VOLUME 350 [facility] XM INTEP COMP [facility] Tissue/Wound Culture/SmearOr dered By: Bailee Galloway on 05-08-2024 Bacteria identified Cx Nom (Unsp spec) (1+) Rare Mixed Skin Microorganisms [facility] Basic metabolic 2000 panelon 05-07-2024 Anion gap [Moles/Vol] 12 mmol/L 10 - 2 0 mmol/L [facility] Calcium [Mass/Vol] 8.3 mg/dL Low 8.6 - 10. 6 mg/dL [facility] Chloride [Moles/Vol] 102 mmol/L 98 - 10 7 mmol/L [facility] CO2 [Moles/Vol] 25 mmol/L 21 - 32 mmol/L [facility] Creatinine [Mass/Vol] 0.74 mg/dL 0.50 - 1.05 mg/dL [facility] eGFR - PINF [facility] Glucose [Mass/Vol] 102 mg/dL High 74 - 99 mg/dL [facility] Interpretation and review of laboratory results Abnormal [facility] Potassium [Moles/Vol] 4.5 mmol/L 3.5 - 5.3 mmol/L [facility] Sodium [Moles/Vol] 134 mmol/L Low 136 - 145 mmol/L [facility] Urea nitrogen [Mass/Vol] 13 mg/dL 6 - 23 mg/dL [facility] Anion gap [Moles/Vol] 12 mmol/L Normal 10-20 [facility] Comment on above: Performed By: #### 2 4321-2 ####JANETH Galo ([id number])[facility] ([facility])[id number] [place] [address] Calcium [Mass/Vol] 8.3 mg/dL Low 8.6-10.6 [facility] Comment on above: Performed By: #### 2 4321-2 ####JANETH Galo ([id number])[facility] ([facility])[address] [place] [address] Chloride [Moles/Vol] 102 mmol/L Normal 98-107 [facility] Comment on above: Performed By: #### 2 4321-2 ####JANETH GRAFF L ([id number])[facility] ([facility])[address] [place] [address] CO2 [Moles/Vol] 25 mmol/L Normal 21-32 [facility] Comment on above: Performed By: #### 2 4321-2 ####JANETH GRAFF L ([id number])[facility] ([facility])[address] [place] [address] Creatinine [Mass/Vol] 0.74 mg/dL Normal 0.50-1.05 [facility] Comment on above: Performed By: #### 2 4321-2 ####JANETH Galo ([id number])[facility] ([facility])[address] [place] [address] GFR/1.73 sq M.predicted MDRD (S/P/Bld) [Vol rate/Area] mL/min/{1.73_m2} Normal >60 [facility] Comment on above: Result Comment: Calc ulations of estimated GFR are performed using the 2020 CKD-EPI Study Refit equation without the race variable for the IDMS-Traceable creatinine methods.https://jasn.asnjournals.org/content/early// N.0334788024 Performed By: #### 2 4321-2 ####JANETH Galo ([id number])[facility] ([facility])[address] [place] [address] Glucose [Mass/Vol] 102 mg/dL High 74-99 [facility] Comment on above: Performed By: #### 2 4321-2 ####JANETH Galo ([id number])[facility] ([facility])[address]37 [place] [address] Potassium [Moles/Vol] 4.5 mmol/L Normal 3.5-5.3 [facility] Comment on above: Performed By: #### 2 4321-2 ####JANETH Galo ([id number])[facility] ([facility])[address] [place] [address] Sodium [Moles/Vol] 134 mmol/L Low 136-145 [facility] Comment on above: Performed By: #### 2 4321-2 ####JANETH GRAFF L ([id number])[facility] ([facility])[address]48 [place] [address] Urea nitrogen [Mass/Vol] 13 mg/dL Normal 6-23 [facility] Comment on above: Performed By: #### 2 4321-2 ####JANETH GRAFF L ([id number])[facility] ([facility])[address] [place] [address] CBC panel Auto (Bld)on 05-07 Erythrocyte distribution width (RBC) [Ratio] 19 % High 11.5 - 14.5 % [facility] Hematocrit (Bld) [Volume fraction] 25.4 % Low 36.0 - 46.0 % [facility] Hemoglobin (Bld) [Mass/Vol] 7.7 g/dL Low 12.0 - 16.0 g/dL [facility] Interpretation and review of laboratory results Abnormal [facility] MCH (RBC) [Entitic mass] 24.5 pg Low 26.0 - 34.0 pg [facility] MCHC (RBC) [Mass/Vol] 30.3 g/dL Low 32.0 - 36.0 g/dL [facility] MCV (RBC) [Entitic vol] 81 fL 80 - 100 fL [facility] Nucleated RBC/100 WBC (Bld) [Ratio] 0.6 % High [facility] Platelets (Bld) [#/Vol] 611 10*3/uL High [facility] RBC (Bld) [#/Vol] 3.14 10*6/uL Low [facility] WBC (Bld) [#/Vol] 11.3 10*3/uL [facility] Erythrocyte distribution width (RBC) [Ratio] 19.0 % High 11.5-14.5 [facility] Comment on above: Performed By: #### 5 8410-2 ####JANETH Galo ([id number])[facility] ([facility])[address] [place] [address] Hematocrit (Bld) [Volume fraction] 25.4 % Low 36.0-46.0 [facility] Comment on above: Performed By: #### 5 8410-2 ####JANETH Galo ([id number])[facility] ([facility])[address] [place] [address] Hemoglobin (Bld) [Mass/Vol] 7.7 g/dL Low 12.0-16.0 [facility] Comment on above: Performed By: #### 5 8410-2 ####JANETH Galo (04966)[facility] ([facility])[address] [place] [address] MCH (RBC) [Entitic mass] 24.5 pg Low 26.0-34.0 [facility] Comment on above: Performed By: #### 5 8410-2 ####JANETH Galo ([id number])[facility] ([facility])[address]476 [place] [address] MCHC (RBC) [Mass/Vol] 30.3 g/dL Low 32.0-36.0 [facility] Comment on above: Performed By: #### 5 8410-2 ####JANETH Galo ([id number])[facility] ([facility])[address]26 [place] [address] MCV (RBC) [Entitic vol] 81 fL Normal 80-100 [facility] Comment on above: Performed By: #### 5 8410-2 ####JANETH Galo ([id number])[facility] ([facility])[address]241 [place] [address] Nucleated RBC/100 WBC (Bld) [Ratio] 0.6 /100 WBCs High 0.0-0.0 [facility] Comment on above: Performed By: #### 5 8410-2 ####JANETH Galo (92093)[facility] ([facility])[address]409 [place] [address] Platelets (Bld) [#/Vol] 611 x10*3/uL High 150-450 [facility] Comment on above: Performed By: #### 5 8410-2 ####JANETH Galo ([id number])[facility] ([facility])[address]01 [place] [address] RBC (Bld) [#/Vol] 3.14 x10*6/uL Low 4.00-5.20 [facility] Comment on above: Performed By: #### 5 8410-2 ####JANETH Galo ([id number])[facility] ([facility])[address]51 [place] [address] WBC (Bld) [#/Vol] 11.3 x10*3/uL Normal 4.4-11.3 [facility] Comment on above: Performed By: #### 5 8410-2 ####JANETH Galo ([id number])[facility] ([facility])[address] [place] [address] Basic metabolic 2000 panelon 05-06-2024 Anion gap [Moles/Vol] 13 mmol/L 10 - 2 0 mmol/L [facility] Calcium [Mass/Vol] 8.4 mg/dL Low 8.6 - 10. 6 mg/dL [facility] Chloride [Moles/Vol] 102 mmol/L 98 - 10 7 mmol/L [facility] CO2 [Moles/Vol] 23 mmol/L 21 - 32 mmol/L [facility] Creatinine [Mass/Vol] 0.75 mg/dL 0.50 - 1.05 mg/dL [facility] eGFR - PINF [facility] Glucose [Mass/Vol] 91 mg/dL 74 - 99 mg/dL [facility] Interpretation and review of laboratory results Abnormal [facility] Potassium [Moles/Vol] 4.2 mmol/L 3.5 - 5.3 mmol/L [facility] Sodium [Moles/Vol] 134 mmol/L Low 136 - 145 mmol/L [facility] Urea nitrogen [Mass/Vol] 11 mg/dL 6 - 23 mg/dL [facility] Anion gap [Moles/Vol] 13 mmol/L Normal 10-20 [facility] Comment on above: Performed By: #### 2 4321-2 ####JANETH Galo ([id number])[facility] ([facility])[address] [place] [address] Calcium [Mass/Vol] 8.4 mg/dL Low 8.6-10.6 [facility] Comment on above: Performed By: #### 2 4321-2 ####JANETH Galo ([id number])[facility] ([facility])[address] [place] [address] Chloride [Moles/Vol] 102 mmol/L Normal 98-107 [facility] Comment on above: Performed By: #### 2 4321-2 ####JANETH Galo ([id number])[facility] ([facility])[address]35 [place] [address] CO2 [Moles/Vol] 23 mmol/L Normal 21-32 [facility] Comment on above: Performed By: #### 2 4321-2 ####JANETH Galo ([id number])[facility] ([facility])[address] [place] [address] Creatinine [Mass/Vol] 0.75 mg/dL Normal 0.50-1.05 [facility] Comment on above: Performed By: #### 2 4321-2 ####JANETH Galo ([id number])[facility] ([facility])[address] [place] [address] GFR/1.73 sq M.predicted MDRD (S/P/Bld) [Vol rate/Area] mL/min/{1.73_m2} Normal >60 [facility] Comment on above: Result Comment: Calc ulations of estimated GFR are performed using the 2020 CKD-EPI Study Refit equation without the race variable for the IDMS-Traceable creatinine methods.https://jasn.asnjournals.org/content// N.2724741861 Performed By: #### 2 4321-2 ####JANETH Galo ([id number])[facility] ([facility])[address]35 [place] [address] Glucose [Mass/Vol] 91 mg/dL Normal 74-99 [facility] Comment on above: Performed By: #### 2 4321-2 ####JANETH Galo (65340)[facility] ([facility])[address]462 [place] [address] Potassium [Moles/Vol] 4.2 mmol/L Normal 3.5-5.3 [facility] Comment on above: Performed By: #### 2 4321-2 ####JANETH Galo (57286)[facility] ([facility])[address]100 [place] [address] Sodium [Moles/Vol] 134 mmol/L Low 136-145 [facility] Comment on above: Performed By: #### 2 4321-2 ####JANETH Galo ([id number])[facility] ([facility])[address]85 [place] [address] Urea nitrogen [Mass/Vol] 11 mg/dL Normal 6-23 [facility] Comment on above: Performed By: #### 2 4321-2 ####JANETH Galo ([id number])[facility] ([facility])[id number] [place] [address] CBC panel Auto (Bld)on 05-06 Erythrocyte distribution width (RBC) [Ratio] 18.7 % High 11.5 - 14.5 % [facility] Hematocrit (Bld) [Volume fraction] 25.7 % Low 36.0 - 46.0 % [facility] Hemoglobin (Bld) [Mass/Vol] 7.7 g/dL Low 12.0 - 16.0 g/dL [facility] Interpretation and review of laboratory results Abnormal [facility] MCH (RBC) [Entitic mass] 24.4 pg Low 26.0 - 34.0 pg [facility] MCHC (RBC) [Mass/Vol] 30 g/dL Low 32.0 - 36.0 g/dL [facility] MCV (RBC) [Entitic vol] 82 fL 80 - 100 fL [facility] Nucleated RBC/100 WBC (Bld) [Ratio] 0.2 % High [facility] Platelets (Bld) [#/Vol] 665 10*3/uL High [facility] RBC (Bld) [#/Vol] 3.15 10*6/uL Low [facility] WBC (Bld) [#/Vol] 10.9 10*3/uL [facility] Erythrocyte distribution width (RBC) [Ratio] 18.7 % High 11.5-14.5 [facility] Comment on above: Performed By: #### 5 8410-2 ####JANETH Galo ([id number])[facility] ([facility])[address] [place] [address] Hematocrit (Bld) [Volume fraction] 25.7 % Low 36.0-46.0 [facility] Comment on above: Performed By: #### 5 8410-2 ####JANETH Galo ([id number])[facility] ([facility])[address] [place] [address] Hemoglobin (Bld) [Mass/Vol] 7.7 g/dL Low 12.0-16.0 [facility] Comment on above: Performed By: #### 5 8410-2 ####JANETH Galo ([id number])[facility] ([facility])[address] [place] [address] MCH (RBC) [Entitic mass] 24.4 pg Low 26.0-34.0 [facility] Comment on above: Performed By: #### 5 8410-2 ####JANETH Galo ([id number])[facility] ([facility])[address] [place] [address] MCHC (RBC) [Mass/Vol] 30.0 g/dL Low 32.0-36.0 [facility] Comment on above: Performed By: #### 5 8410-2 ####JANETH Galo ([id number])[facility] ([facility])[address] [place] [address] MCV (RBC) [Entitic vol] 82 fL Normal 80-100 [facility] Comment on above: Performed By: #### 5 8410-2 ####JANETH Galo ([id number])[facility] ([facility])[address] [place] [address] 59060 Nucleated RBC/100 WBC (Bld) [Ratio] 0.2 /100 WBCs High 0.0-0.0 [facility] Comment on above: Performed By: #### 5 8410-2 ####JANETH Galo (70012)[facility] ([facility])[address]144 [place] [address] Platelets (Bld) [#/Vol] 665 x10*3/uL High 150-450 [facility] Comment on above: Performed By: #### 5 8410-2 ####JANETH Galo ([id number])[facility] ([facility])[address] [place] [address] 112[address] RBC (Bld) [#/Vol] 3.15 x10*6/uL Low 4.00-5.20 [facility] Comment on above: Performed By: #### 5 8410-2 ####JANETH Galo ([id number])[facility] ([facility])[address] [place] [address]158 WBC (Bld) [#/Vol] 10.9 x10*3/uL Normal 4.4-11.3 [facility] Comment on above: Performed By: #### 5 8410-2 ####JANETH Galo ([id number])[facility] ([facility])[address] [place] [address] Bacteria identifiedon 2024 Bacteria identified Cx Nom (Unsp spec) [facility] Comment on above: Performed By: #### 6 463-4 ####JANETH Galo ([id number])[facility] ([facility])[id number] [place] [address] Basic metabolic 2000 panelon 05-05-2024 Anion gap [Moles/Vol] 16 mmol/L 10 - 2 0 mmol/L [facility] Calcium [Mass/Vol] 8.6 mg/dL 8.6 - 10. 6 mg/dL [facility] Chloride [Moles/Vol] 100 mmol/L 98 - 10 7 mmol/L [facility] CO2 [Moles/Vol] 24 mmol/L 21 - 32 mmol/L [facility] Creatinine [Mass/Vol] 0.76 mg/dL 0.50 - 1.05 mg/dL [facility] eGFR - PINF [facility] Glucose [Mass/Vol] 93 mg/dL 74 - 99 mg/dL [facility] Interpretation and review of laboratory results Normal [facility] Potassium [Moles/Vol] 4.4 mmol/L 3.5 - 5.3 mmol/L [facility] Sodium [Moles/Vol] 136 mmol/L 136 - 145 mmol/L [facility] Urea nitrogen [Mass/Vol] 15 mg/dL 6 - 23 mg/dL [facility] Anion gap [Moles/Vol] 16 mmol/L Normal 10-20 [facility] Comment on above: Performed By: #### 2 4321-2 ####JANETH GRAFF L ([id number])[facility] [facility] ([facility])[address] [place] [address] Calcium [Mass/Vol] 8.6 mg/dL Normal 8.6-10.6 [facility] Comment on above: Performed By: #### 2 4321-2 ####JANETH GRAFF L ([id number])[facility] ([facility])[address] [place] [address] Chloride [Moles/Vol] 100 mmol/L Normal 98-107 [facility] Comment on above: Performed By: #### 2 4321-2 ####JANETH CONNORMOTZLETI L ([id number])[facility] ([facility])[address] [place] [address] CO2 [Moles/Vol] 24 mmol/L Normal 21-32 [facility] Comment on above: Performed By: #### 2 4321-2 ####JANETH MCDONALDTZER L ([id number])[facility] ([facility])[address] [place] [address] Creatinine [Mass/Vol] 0.76 mg/dL Normal 0.50-1.05 [facility] Comment on above: Performed By: #### 2 4321-2 ####JANETH GRAFF L ([id number])[facility] ([facility])[address] [place] [address] GFR/1.73 sq M.predicted MDRD (S/P/Bld) [Vol rate/Area] mL/min/{1.73_m2} Normal >60 [facility] Comment on above: Result Comment: Calc ulations of estimated GFR are performed using the 2020 CKD-EPI Study Refit equation without the race variable for the IDMS-Traceable creatinine methods.https://jasn.asnjournals.org/content/early/ N.3699330301 Performed By: #### 2 4321-2 ####JANETH Galo ([id number])[facility] ([facility])[address] [place] [address] Glucose [Mass/Vol] 93 mg/dL Normal 74-99 [facility] Comment on above: Performed By: #### 2 4321-2 ####JANETH GRAFF L ([id number])[facility] ([facility])[address] [place] [address] Potassium [Moles/Vol] 4.4 mmol/L Normal 3.5-5.3 [facility] Comment on above: Performed By: #### 2 4321-2 ####JANETH CONNORMOTZER L ([id number])[facility] ([facility])[address] [place] [address] Sodium [Moles/Vol] 136 mmol/L Normal 136-145 [facility] Comment on above: Performed By: #### 2 4321-2 ####JANETH CONNORMOTZER L ([id number])[facility] ([facility])[address] [place] [address] Urea nitrogen [Mass/Vol] 15 mg/dL Normal 6-23 [facility] Comment on above: Performed By: #### 2 4321-2 ####JANETH CONNORMOTZER L ([id number])[facility] ([facility])[address] [place] [address] CBC panel Auto (Bld)on 05-05 Erythrocyte distribution width (RBC) [Ratio] 18.9 % High 11.5 - 14.5 % [facility] Hematocrit (Bld) [Volume fraction] 25.6 % Low 36.0 - 46.0 % [facility] Hemoglobin (Bld) [Mass/Vol] 7.4 g/dL Low 12.0 - 16.0 g/dL [facility] Interpretation and review of laboratory results Abnormal [facility] MCH (RBC) [Entitic mass] 23.4 pg Low 26.0 - 34.0 pg [facility] MCHC (RBC) [Mass/Vol] 28.9 g/dL Low 32.0 - 36.0 g/dL [facility] MCV (RBC) [Entitic vol] 81 fL 80 - 100 fL [facility] Nucleated RBC/100 WBC (Bld) [Ratio] 0.2 % High [facility] Platelets (Bld) [#/Vol] 719 10*3/uL High [facility] RBC (Bld) [#/Vol] 3.16 10*6/uL Low [facility] WBC (Bld) [#/Vol] 8.2 10*3/uL [facility] Erythrocyte distribution width (RBC) [Ratio] 18.9 % High 11.5-14.5 [facility] Comment on above: Performed By: #### 5 8410-2 ####JANETH Galo ([id number])[facility] ([facility])[address] [place] [address] Hematocrit (Bld) [Volume fraction] 25.6 % Low 36.0-46.0 [facility] Comment on above: Performed By: #### 5 8410-2 ####JANETH Galo ([id number])[facility] ([facility])[address] [place] [address] Hemoglobin (Bld) [Mass/Vol] 7.4 g/dL Low 12.0-16.0 [facility] Comment on above: Performed By: #### 5 8410-2 ####JANETH Galo ([id number])[facility] ([facility])[address] [place] [address] MCH (RBC) [Entitic mass] 23.4 pg Low 26.0-34.0 [facility] Comment on above: Performed By: #### 5 8410-2 ####JANETH Galo ([id number])[facility] ([facility])[address] [place] [address] MCHC (RBC) [Mass/Vol] 28.9 g/dL Low 32.0-36.0 [facility] Comment on above: Performed By: #### 5 8410-2 ####JANETH Galo ([id number])[facility] ([facility])[address] [place] [address] MCV (RBC) [Entitic vol] 81 fL Normal 80-100 [facility] Comment on above: Performed By: #### 5 8410-2 ####JANETH Galo ([id number])[facility] ([facility])[address] [place] [address] Nucleated RBC/100 WBC (Bld) [Ratio] 0.2 /100 WBCs High 0.0-0.0 [facility] Comment on above: Performed By: #### 5 8410-2 ####JANETH Galo ([id number])[facility] ([facility])[address] [place] [address] Platelets (Bld) [#/Vol] 719 x10*3/uL High 150-450 [facility] Comment on above: Performed By: #### 5 8410-2 ####JANETH Galo ([id number])[facility] ([facility])[address] [place] [address] RBC (Bld) [#/Vol] 3.16 x10*6/uL Low 4.00-5.20 [facility] Comment on above: Performed By: #### 5 8410-2 ####JANETH Galo ([id number])[facility] ([facility])[address] [place] [address] WBC (Bld) [#/Vol] 8.2 x10*3/uL Normal 4.4-11.3 [facility] Comment on above: Performed By: #### 5 8410-2 ####JANETH Galo ([id number])[facility] ([facility])[address] [place] [address] FL FLUORO IMAGES NO CHARGEon 05-05-2024 FL FLUORO IMAGES NO CHARGE These images are not reportable by radiology and will not be interpreted by Radiologists. Normal [facility] Fungus identifiedon 05-06-19 25 Fungus identified Cx Nom (Unsp spec) Abnormal [facility] Comment on above: Performed By: #### 5 80-1 ####JANETH Galo ([id number])[facility] ([facility])[address] [place] [address] HCG ( test) Ql (U)o n 05-05-2024 Interpretation and review of laboratory results Normal [facility] Work Phone: Preg Test, Ur Negative Negative [facility] Work Phone: [facility] Work Phone: Peripheral Blockon 5 [facility] Work Phone: [facility] Work Phone: Prepare RBC: 1 Unitson 05-05 Blood Expiration Date 05/25/2024 11:59:00 PM EDT [facility] Dispense Status TR [facility] PRODUCT BLOOD TYPE 6200 [facility] PRODUCT CODE [id number] [facility] Unit ABO A [facility] Unit Number [id number] [facility] Unit RH Positive [facility] UNIT VOLUME 350 [facility] XM INTEP COMP [facility] Surgical pathology studyon 0 05-05-2024 Surgical pathology study Normal 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 6 mg/dL [facility] Chloride [Moles/Vol] 100 mmol/L 98 - 10 7 mmol/L [facility] CO2 [Moles/Vol] 24 mmol/L 21 - 32 mmol/L [facility] Creatinine [Mass/Vol] 0.86 mg/dL 0.50 - 1.05 mg/dL [facility] GFR/1.73 sq M.predicted among non-blacks MDRD (S/P/Bld) [Vol rate/Area] 81 mL/min/{1.73_m2} - PINF [facility] Glucose [Mass/Vol] 102 mg/dL High 74 - 99 mg/dL [facility] Interpretation and review of laboratory results Abnormal [facility] Potassium [Moles/Vol] 4.4 mmol/L 3.5 - 5.3 mmol/L [facility] Sodium [Moles/Vol] 133 mmol/L Low 136 - 145 mmol/L [facility] Urea nitrogen [Mass/Vol] 18 mg/dL 6 - 23 mg/dL [facility] Anion gap [Moles/Vol] 13 mmol/L Normal 10-20 [facility] Comment on above: Performed By: #### 2 4321-2 ####JANETH Galo ([id number])[facility] ([facility])[address] [place] [address] Calcium [Mass/Vol] 8.5 mg/dL Low 8.6-10.6 [facility] Comment on above: Performed By: #### 2 4321-2 ####JANETH Galo ([id number])[facility] ([facility])[address] [place] [address] Chloride [Moles/Vol] 100 mmol/L Normal 98-107 [facility] Comment on above: Performed By: #### 2 4321-2 ####JANETH Galo ([id number])[facility] ([facility])[address] [place] [address] CO2 [Moles/Vol] 24 mmol/L Normal 21-32 [facility] Comment on above: Performed By: #### 2 4321-2 ####JANETH Galo ([id number])[facility] ([facility])[address] [place] [address] Creatinine [Mass/Vol] 0.86 mg/dL Normal 0.50-1.05 [facility] Comment on above: Performed By: #### 2 4321-2 ####JANETH Galo ([id number])[facility] ([facility])[address] [place] [address] Glomerular filtration rate/1.73 sq M.predicted 81 mL/min/1.73m*2 Normal >60 [facility] Comment on above: Result Comment: Calc ulations of estimated GFR are performed using the 2020 CKD-EPI Study Refit equation without the race variable for the IDMS-Traceable creatinine methods.https://jasn.asnjournals.org/content/early// N.6492986094 Performed By: #### 2 4321-2 ####JANETH Galo ([id number])[facility] ([facility])[address] [place] [address] Glucose [Mass/Vol] 102 mg/dL High 74-99 [facility] Comment on above: Performed By: #### 2 4321-2 ####JANETH Galo ([id number])[facility] ([facility])[address] [place] [address] Potassium [Moles/Vol] 4.4 mmol/L Normal 3.5-5.3 [facility] Comment on above: Performed By: #### 2 4321-2 ####JANETH Galo ([id number])[facility] ([facility])[address] [place] [address] Sodium [Moles/Vol] 133 mmol/L Low 136-145 [facility] Comment on above: Performed By: #### 2 4321-2 ####JANETH Galo ([id number])[facility] ([facility])[address] [place] [address] Urea nitrogen [Mass/Vol] 18 mg/dL Normal 6- [facility] Comment on above: Performed By: #### 2 4321-2 ####JANETH Galo ([id number])[facility] ([facility])[address] [place] [address] CBC panel Auto (Bld)on 05-04 Erythrocyte distribution width (RBC) [Ratio] 18.8 % High 11.5 - 14.5 % [facility] Hematocrit (Bld) [Volume fraction] 26.3 % Low 36.0 - 46.0 % [facility] Hemoglobin (Bld) [Mass/Vol] 7.8 g/dL Low 12.0 - 16.0 g/dL [facility] Interpretation and review of laboratory results Abnormal [facility] MCH (RBC) [Entitic mass] 24.1 pg Low 26.0 - 34.0 pg [facility] MCHC (RBC) [Mass/Vol] 29.7 g/dL Low 32.0 - 36.0 g/dL [facility] MCV (RBC) [Entitic vol] 81 fL 80 - 100 fL [facility] Nucleated RBC/100 WBC (Bld) [Ratio] 0 % [facility] Platelets (Bld) [#/Vol] 724 10*3/uL High [facility] RBC (Bld) [#/Vol] 3.23 10*6/uL Low [facility] WBC (Bld) [#/Vol] 7.6 10*3/uL [facility] Erythrocyte distribution width (RBC) [Ratio] 18.8 % High 11.5-14.5 [facility] Comment on above: Performed By: #### 5 8410-2 ####JANETH Galo ([id number])[facility] ([facility])[address] [place] [address] Hematocrit (Bld) [Volume fraction] 26.3 % Low 36.0-46.0 [facility] Comment on above: Performed By: #### 5 8410-2 ####JANETH Galo ([id number])[facility] ([facility])[address] [place] [address] Hemoglobin (Bld) [Mass/Vol] 7.8 g/dL Low 12.0-16.0 [facility] Comment on above: Performed By: #### 5 8410-2 ####JANETH Galo ([id number])[facility] ([facility])[address] [place] [address] MCH (RBC) [Entitic mass] 24.1 pg Low 26.0-34.0 [facility] Comment on above: Performed By: #### 5 8410-2 ####JANETH Galo ([id number])[facility] ([facility])[address] [place] [address] MCHC (RBC) [Mass/Vol] 29.7 g/dL Low 32.0-36.0 [facility] Comment on above: Performed By: #### 5 8410-2 ####JANETH Galo ([id number])[facility] ([facility])[address] [place] [address] MCV (RBC) [Entitic vol] 81 fL Normal 80-100 [facility] Comment on above: Performed By: #### 5 8410-2 ####JANETH Galo ([id number])[facility] ([facility])[address] [place] [address] Nucleated RBC/100 WBC (Bld) [Ratio] 0.0 /100 WBCs Normal 0.0-0.0 [facility] Comment on above: Performed By: #### 5 8410-2 ####JANETH Galo ([id number])[facility] ([facility])[address] [place] [address] Platelets (Bld) [#/Vol] 724 x10*3/uL High 150-450 [facility] Comment on above: Performed By: #### 5 8410-2 ####JANETH Galo ([id number])[facility] ([facility])[address] [place] [address] RBC (Bld) [#/Vol] 3.23 x10*6/uL Low 4.00-5.20 [facility] Comment on above: Performed By: #### 5 8410-2 ####JANETH Galo ([id number])[facility] ([facility])[address] [place] [address] WBC (Bld) [#/Vol] 7.6 x10*3/uL Normal 4.4-11.3 [facility] Comment on above: Performed By: #### 5 8410-2 ####JANETH Galo ([id number])[facility] ([facility])[address] [place] [address] Basic metabolic 2000 panelon 05-03-2024 Anion gap [Moles/Vol] 11 mmol/L 10 - 2 0 mmol/L [facility] Calcium [Mass/Vol] 9 mg/dL 8.6 - 10. 6 mg/dL [facility] Chloride [Moles/Vol] 99 mmol/L 98 - 10 7 mmol/L [facility] CO2 [Moles/Vol] 26 mmol/L 21 - 32 mmol/L [facility] Creatinine [Mass/Vol] 0.95 mg/dL 0.50 - 1.05 mg/dL [facility] GFR/1.73 sq M.predicted among non-blacks MDRD (S/P/Bld) [Vol rate/Area] 72 mL/min/{1.73_m2} - PINF [facility] Glucose [Mass/Vol] 132 mg/dL High 74 - 99 mg/dL [facility] Interpretation and review of laboratory results Abnormal [facility] Potassium [Moles/Vol] 5 mmol/L 3.5 - 5.3 mmol/L [facility] Sodium [Moles/Vol] 131 mmol/L Low 136 - 145 mmol/L [facility] Urea nitrogen [Mass/Vol] 14 mg/dL 6 - 23 mg/dL [facility] Anion gap [Moles/Vol] 11 mmol/L Normal 10-20 [facility] Comment on above: Performed By: #### 2 4321-2 ####JANETH Galo ([id number])[facility] ([facility])[address] [place] [address] Calcium [Mass/Vol] 9.0 mg/dL Normal 8.6-10.6 [facility] Comment on above: Performed By: #### 2 4321-2 ####JANETH GRAFF L ([id number])[facility] ([facility])[address] [place] [address] Chloride [Moles/Vol] 99 mmol/L Normal 98-107 [facility] Comment on above: Performed By: #### 2 4321-2 ####JANETH GRAFF L ([id number])[facility] ([facility])[address] [place] [address] CO2 [Moles/Vol] 26 mmol/L Normal 21-32 [facility] Comment on above: Performed By: #### 2 4321-2 ####JANETH GRAFF L ([id number])[facility] ([facility])[address] [place] [address] Creatinine [Mass/Vol] 0.95 mg/dL Normal 0.50-1.05 [facility] Comment on above: Performed By: #### 2 4321-2 ####JANETH GRAFF L ([id number])[facility] ([facility])[address] [place] [address] Glomerular filtration rate/1.73 sq M.predicted 72 mL/min/1.73m*2 Normal >60 [facility] Comment on above: Result Comment: Calc ulations of estimated GFR are performed using the 2020 CKD-EPI Study Refit equation without the race variable for the IDMS-Traceable creatinine methods.https://jasn.asnjournals.org/content// N.3038274321 Performed By: #### 2 4321-2 ####JANETH Galo ([id number])[facility] ([facility])[address] [place] [address] Glucose [Mass/Vol] 132 mg/dL High 74-99 [facility] Comment on above: Performed By: #### 2 4321-2 ####JANETH Galo ([id number])[facility] ([facility])[address] [place] [address] Potassium [Moles/Vol] 5.0 mmol/L Normal 3.5-5.3 [facility] Comment on above: Performed By: #### 2 4321-2 ####AJNETH Galo ([id number])[facility] ([facility])[address] [place] [address] Sodium [Moles/Vol] 131 mmol/L Low 136-145 [facility] Comment on above: Performed By: #### 2 4321-2 ####JANETH Galo ([id number])[facility] ([facility])[address] [place] [address] Urea nitrogen [Mass/Vol] 14 mg/dL Normal 6-23 [facility] Comment on above: Performed By: #### 2 4321-2 ####JANETH Galo ([id number])[facility] ([facility])[address] [place] [address] Anion gap [Moles/Vol] 12 mmol/L 10 - 2 0 mmol/L [facility] Calcium [Mass/Vol] 8.8 mg/dL 8.6 - 10. 6 mg/dL [facility] Chloride [Moles/Vol] 99 mmol/L 98 - 10 7 mmol/L [facility] CO2 [Moles/Vol] 26 mmol/L 21 - 32 mmol/L [facility] Creatinine [Mass/Vol] 0.97 mg/dL 0.50 - 1.05 mg/dL [facility] GFR/1.73 sq M.predicted among non-blacks MDRD (S/P/Bld) [Vol rate/Area] 70 mL/min/{1.73_m2} - PINF [facility] Glucose [Mass/Vol] 87 mg/dL 74 - 99 mg/dL [facility] Interpretation and review of laboratory results Abnormal [facility] Potassium [Moles/Vol] 6.3 mmol/L Critically high 3.5 - 5.3 mmol/L [facility] Sodium [Moles/Vol] 131 mmol/L Low 136 - 145 mmol/L [facility] Urea nitrogen [Mass/Vol] 15 mg/dL 6 - 23 mg/dL [facility] Anion gap [Moles/Vol] 12 mmol/L Normal 10-20 [facility] Comment on above: Performed By: #### 2 4321-2 ####JANETH Galo ([id number])[facility] ([facility])[address] [place] [address] Calcium [Mass/Vol] 8.8 mg/dL Normal 8.6-10.6 [facility] Comment on above: Performed By: #### 2 4321-2 ####JANETH GRAFF L ([id number])[facility] ([facility])[address] [place] [address] Chloride [Moles/Vol] 99 mmol/L Normal 98-107 [facility] Comment on above: Performed By: #### 2 4321-2 ####JANETH MCDONALDTZLETI L ([id number])[facility] ([facility])[address] [place] [address] CO2 [Moles/Vol] 26 mmol/L Normal 21-32 [facility] Comment on above: Performed By: #### 2 4321-2 ####JANETH GRAFF L ([id number])[facility] ([facility])[address] [place] [address] Creatinine [Mass/Vol] 0.97 mg/dL Normal 0.50-1.05 [facility] Comment on above: Performed By: #### 2 4321-2 ####JANETH Galo ([id number])[facility] ([facility])[address] [place] [address] Glomerular filtration rate/1.73 sq M.predicted 70 mL/min/1.73m*2 Normal >60 [facility] Comment on above: Result Comment: Calc ulations of estimated GFR are performed using the 2020 CKD-EPI Study Refit equation without the race variable for the IDMS-Traceable creatinine methods.https://jasn.asnjournals.org/content/early// N.6918704232 Performed By: #### 2 4321-2 ####JANETH Galo ([id number])[facility] ([facility])[address] [place] [address] Glucose [Mass/Vol] 87 mg/dL Normal 74-99 [facility] Comment on above: Performed By: #### 2 4321-2 ####JANETH Galo ([id number])[facility] ([facility])[address] [place] [address] Potassium [Moles/Vol] 6.3 mmol/L Critically high 3.5-5.3 [facility] Comment on above: Result Comment: MILD HEMOLYSIS DETECTED. The result may be falsely elevated due to hemolysis or other interferents. Clinical correlation is recommended. Repeat testing may be considered. Performed By: #### 2 4321-2 ####JANETH GRAFF L ([id number])[facility] ([facility])[address] [place] [address] Sodium [Moles/Vol] 131 mmol/L Low 136-145 [facility] Comment on above: Performed By: #### 2 4321-2 ####JANETH GRAFF L ([id number])[facility] ([facility])[address] [place] [address] Urea nitrogen [Mass/Vol] 15 mg/dL Normal 6-23 [facility] Comment on above: Performed By: #### 2 4321-2 ####JANETH Galo ([id number])[facility] ([facility])[address] [place] [address] Blood type and Indirect anti body screen panel (Bld)on 05-03-2024 ABO group Nom (Bld) A [facility] Blood group antibody screen Ql Negative [facility] D Ag Ql (Bld) Positive [facility] ABO group Nom (Bld) A Normal [facility] Comment on above: Performed By: #### 3 4532-2 ####JANETH Galo ([id number])[facility] ([facility])[address] [place] [address] Blood group antibody screen Ql Negative [facility] Comment on above: Performed By: #### 3 4532-2 ####JANETH Galo ([id number])[facility] ([facility])[address] [place] [address] D Ag Ql (Bld) Positive [facility] Comment on above: Performed By: #### 3 4532-2 ####JANETH Galo ([id number])[facility] ([facility])[address] [place] [address] CBC panel Auto (Bld)on 05-03 Erythrocyte distribution width (RBC) [Ratio] 19 % High 11.5 - 14.5 % [facility] Hematocrit (Bld) [Volume fraction] 28.4 % Low 36.0 - 46.0 % [facility] Hemoglobin (Bld) [Mass/Vol] 8.3 g/dL Low 12.0 - 16.0 g/dL [facility] Interpretation and review of laboratory results Abnormal [facility] MCH (RBC) [Entitic mass] 23.9 pg Low 26.0 - 34.0 pg [facility] MCHC (RBC) [Mass/Vol] 29.2 g/dL Low 32.0 - 36.0 g/dL [facility] MCV (RBC) [Entitic vol] 82 fL 80 - 100 fL [facility] Nucleated RBC/100 WBC (Bld) [Ratio] 0 % [facility] Platelets (Bld) [#/Vol] 811 10*3/uL High [facility] RBC (Bld) [#/Vol] 3.47 10*6/uL Low [facility] WBC (Bld) [#/Vol] 9.2 10*3/uL [facility] Erythrocyte distribution width (RBC) [Ratio] 19.0 % High 11.5-14.5 [facility] Comment on above: Performed By: #### 5 8410-2 ####JANETH Galo ([id number])[facility] ([facility])[address] [place] [id number] Hematocrit (Bld) [Volume fraction] 28.4 % Low 36.0-46.0 [facility] Comment on above: Performed By: #### 5 8410-2 ####JANETH Galo ([id number])[facility] ([facility])[id number] [place] [id number] Hemoglobin (Bld) [Mass/Vol] 8.3 g/dL Low 12.0-16.0 [facility] Comment on above: Performed By: #### 5 8410-2 ####JANETH Galo ([id number])[facility] ([facility])[id number] [place] [id number] MCH (RBC) [Entitic mass] 23.9 pg Low 26.0-34.0 [facility] Comment on above: Performed By: #### 5 8410-2 ####JANETH Galo ([id number])[facility] ([facility])[id number] [place] [address] MCHC (RBC) [Mass/Vol] 29.2 g/dL Low 32.0-36.0 [facility] Comment on above: Performed By: #### 5 8410-2 ####JANETH Galo ([id number])[facility] ([facility])[id number] [place] [address]405 MCV (RBC) [Entitic vol] 82 fL Normal 80-100 [facility] Comment on above: Performed By: #### 5 8410-2 ####JANETH Galo ([id number])[facility] ([facility])[address] [place] [address] Nucleated RBC/100 WBC (Bld) [Ratio] 0.0 /100 WBCs Normal 0.0-0.0 [facility] Comment on above: Performed By: #### 5 8410-2 ####JANETH Galo ([id number])[facility] ([facility])[address] [place] [address] Platelets (Bld) [#/Vol] 811 x10*3/uL High 150-450 [facility] Comment on above: Performed By: #### 5 8410-2 ####JANETH Galo ([id number])[facility] ([facility])[address] [place] [address] RBC (Bld) [#/Vol] 3.47 x10*6/uL Low 4.00-5.20 [facility] Comment on above: Performed By: #### 5 8410-2 ####JANETH Galo ([id number])[facility] ([facility])[address] [place] [address] WBC (Bld) [#/Vol] 9.2 x10*3/uL Normal 4.4-11.3 [facility] Comment on above: Performed By: #### 5 8410-2 ####JANETH Galo ([id number])[facility] ([facility])[address] [place] [address] Fungal Culture/Smearon 05-03 Fungus identified Cx Nom (Unsp spec) (1+) Rare Mendy parapsilosis Abnormal [facility] Work Phone: Fungal Culture/SmearOrdered By: Comfort Vidal on 05-03-2024 Fungus identified Cx Nom (Unsp spec) 2 colonies Mendy parapsilosis Abnormal [facility] Fungus identified Cx Nom (Un sp spec)on 05-03-2024 Fungus identified Fungus stain Nom (Unsp spec) No fungal elements seen [facility] Work Phone: Interpretation and review of laboratory results Abnormal [facility] Work Phone: [facility] Work Phone: Fungus identified Cx Nom (Un sp spec)Ordered By: Comfort Vidal on 05-03-2024 Fungus identified Fungus stain Nom (Unsp spec) No fungal elements seen [facility] Interpretation and review of laboratory results Abnormal [facility] Nicotine + Metabolites, Urin ita 05-03-2024 Anabasine (U) [Mass/Vol] <5 ng/mL [facility] Cotinine (U) [Mass/Vol] 32 ng/mL [facility] Nicotine (U) [Mass/Vol] <15 ng/mL [facility] Ksnto-9-Oibznyneroelc ne (U) [Mass/Vol] 1178 ng/mL [facility] Basic metabolic 2000 panelon 05-02-2024 Anion gap [Moles/Vol] 13 mmol/L 10 - 2 0 mmol/L [facility] Calcium [Mass/Vol] 8.7 mg/dL 8.6 - 10. 6 mg/dL [facility] Chloride [Moles/Vol] 100 mmol/L 98 - 10 7 mmol/L [facility] CO2 [Moles/Vol] 24 mmol/L 21 - 32 mmol/L [facility] Creatinine [Mass/Vol] 1.03 mg/dL 0.50 - 1.05 mg/dL [facility] GFR/1.73 sq M.predicted among non-blacks MDRD (S/P/Bld) [Vol rate/Area] 66 mL/min/{1.73_m2} - PINF [facility] Glucose [Mass/Vol] 100 mg/dL High 74 - 99 mg/dL [facility] Interpretation and review of laboratory results Abnormal [facility] Potassium [Moles/Vol] 4.4 mmol/L 3.5 - 5.3 mmol/L [facility] Sodium [Moles/Vol] 133 mmol/L Low 136 - 145 mmol/L [facility] Urea nitrogen [Mass/Vol] 15 mg/dL 6 - 23 mg/dL [facility] Anion gap [Moles/Vol] 13 mmol/L Normal 10-20 [facility] Comment on above: Performed By: #### 2 4321-2 ####JANETH MCDONALDTZER L ([id number])[facility] ([facility])[address] [place] [address] Calcium [Mass/Vol] 8.7 mg/dL Normal 8.6-10.6 [facility] Comment on above: Performed By: #### 2 4321-2 ####JANETH SCHMOTZER L ([id number])[facility] ([facility])[address]687 [place] [address] Chloride [Moles/Vol] 100 mmol/L Normal 98-107 [facility] Comment on above: Performed By: #### 2 4321-2 ####JANETH SCHMOTZER L ([id number])[facility] ([facility])[address] [place] [address] CO2 [Moles/Vol] 24 mmol/L Normal 21-32 [facility] Comment on above: Performed By: #### 2 4321-2 ####JANETH CONNORMOTZER L ([id number])[facility] ([facility])[address]36 [place] [address] Creatinine [Mass/Vol] 1.03 mg/dL Normal 0.50-1.05 [facility] Comment on above: Performed By: #### 2 4321-2 ####JANETH SCHMOTZER L ([id number])[facility] ([facility])[address]708 [place] [address] Glomerular filtration rate/1.73 sq M.predicted 66 mL/min/1.73m*2 Normal >60 [facility] Comment on above: Result Comment: Calc ulations of estimated GFR are performed using the 2020 CKD-EPI Study Refit equation without the race variable for the IDMS-Traceable creatinine methods.https://jasn.asnjournals.org/content/early/ N.5957555218 Performed By: #### 2 4321-2 ####JANETH Galo ([id number])[facility] ([facility])[address]118 [place] [address] Glucose [Mass/Vol] 100 mg/dL High 74-99 [facility] Comment on above: Performed By: #### 2 4321-2 ####JANETH GRAFF L ([id number])[facility] ([facility])[address]390 [place] [address] Potassium [Moles/Vol] 4.4 mmol/L Normal 3.5-5.3 [facility] Comment on above: Performed By: #### 2 4321-2 ####JANETH Galo ([id number])[facility] ([facility])[address]96 [place] [address] Sodium [Moles/Vol] 133 mmol/L Low 136-145 [facility] Comment on above: Performed By: #### 2 4321-2 ####JANETH Galo ([id number])[facility] ([facility])[id number] [place] [address] Urea nitrogen [Mass/Vol] 15 mg/dL Normal 6-23 [facility] Comment on above: Performed By: #### 2 4321-2 ####JANETH GRAFF L ([id number])[facility] ([facility])[address] [place] [address] 230[address] CBC panel Auto (Bld)on 05-02 Erythrocyte distribution width (RBC) [Ratio] 18.8 % High 11.5 - 14.5 % [facility] Hematocrit (Bld) [Volume fraction] 26.6 % Low 36.0 - 46.0 % [facility] Hemoglobin (Bld) [Mass/Vol] 7.9 g/dL Low 12.0 - 16.0 g/dL [facility] Interpretation and review of laboratory results Abnormal [facility] MCH (RBC) [Entitic mass] 24.2 pg Low 26.0 - 34.0 pg [facility] MCHC (RBC) [Mass/Vol] 29.7 g/dL Low 32.0 - 36.0 g/dL [facility] MCV (RBC) [Entitic vol] 81 fL 80 - 100 fL [facility] Nucleated RBC/100 WBC (Bld) [Ratio] 0 % [facility] Platelets (Bld) [#/Vol] 758 10*3/uL High [facility] RBC (Bld) [#/Vol] 3.27 10*6/uL Low [facility] WBC (Bld) [#/Vol] 8.7 10*3/uL [facility] Erythrocyte distribution width (RBC) [Ratio] 18.8 % High 11.5-14.5 [facility] Comment on above: Performed By: #### 5 8410-2 ####JANETH Galo ([id number])[facility] ([facility])[address]65 [place] [address] Hematocrit (Bld) [Volume fraction] 26.6 % Low 36.0-46.0 [facility] Comment on above: Performed By: #### 5 8410-2 ####JANETH Galo ([id number])[facility] ([facility])[address]19 [place] [address] Hemoglobin (Bld) [Mass/Vol] 7.9 g/dL Low 12.0-16.0 [facility] Comment on above: Performed By: #### 5 8410-2 ####JANETH Galo ([id number])[facility] ([facility])[address]28 [place] [address] MCH (RBC) [Entitic mass] 24.2 pg Low 26.0-34.0 [facility] Comment on above: Performed By: #### 5 8410-2 ####JANETH Galo ([id number])[facility] ([facility])[address]32 [place] [address] MCHC (RBC) [Mass/Vol] 29.7 g/dL Low 32.0-36.0 [facility] Comment on above: Performed By: #### 5 8410-2 ####JANETH Galo ([id number])[facility] ([facility])[address]212 [place] [address] MCV (RBC) [Entitic vol] 81 fL Normal 80-100 [facility] Comment on above: Performed By: #### 5 8410-2 ####JANETH Galo ([id number])[facility] ([facility])[address] [place] [address] 48[address] Nucleated RBC/100 WBC (Bld) [Ratio] 0.0 /100 WBCs Normal 0.0-0.0 [facility] Comment on above: Performed By: #### 5 8410-2 ####JANETH Galo ([id number])[facility] ([facility])[address] [place] [address] Platelets (Bld) [#/Vol] 758 x10*3/uL High 150-450 [facility] Comment on above: Performed By: #### 5 8410-2 ####JANETH Galo ([id number])[facility] ([facility])[address] [place] [address] RBC (Bld) [#/Vol] 3.27 x10*6/uL Low 4.00-5.20 [facility] Comment on above: Performed By: #### 5 8410-2 ####JANETH Galo ([id number])[facility] ([facility])[address] [place] [address] WBC (Bld) [#/Vol] 8.7 x10*3/uL Normal 4.4-11.3 [facility] Comment on above: Performed By: #### 5 8410-2 ####JANETH Galo ([id number])[facility] ([facility])[address]333 [place] [address] Bacteria identified Cx Nom ( Unsp spec)on 05-01-2024 Interpretation and review of laboratory results Abnormal [facility] Work Phone: Microscopic observation Gram stain Nom (Unsp spec) No polymorphonuclear leukocytes seen Abnormal [facility] Work Phone: Microscopic observation Gram stain Nom (Unsp spec) Positive Abnormal [facility] Work Phone: [facility] Work Phone: Bacteria identified Cx Nom ( Unsp spec)Ordered By: Radha Bird on 05-01-2024 Interpretation and review of laboratory results Abnormal [facility] Microscopic observation Gram stain Nom (Unsp spec) (2+) Few Polymorphonuclear leukocytes [facility] Microscopic observation Gram stain Nom (Unsp spec) No organisms seen [facility] Basic metabolic 2000 panelon 05-01-2024 Anion gap [Moles/Vol] 12 mmol/L 10 - 2 0 mmol/L [facility] Calcium [Mass/Vol] 8.9 mg/dL 8.6 - 10. 6 mg/dL [facility] Chloride [Moles/Vol] 101 mmol/L 98 - 10 7 mmol/L [facility] CO2 [Moles/Vol] 26 mmol/L 21 - 32 mmol/L [facility] Creatinine [Mass/Vol] 0.97 mg/dL 0.50 - 1.05 mg/dL [facility] GFR/1.73 sq M.predicted among non-blacks MDRD (S/P/Bld) [Vol rate/Area] 70 mL/min/{1.73_m2} - PINF [facility] Glucose [Mass/Vol] 95 mg/dL 74 - 99 mg/dL [facility] Interpretation and review of laboratory results Abnormal [facility] Potassium [Moles/Vol] 4.4 mmol/L 3.5 - 5.3 mmol/L [facility] Sodium [Moles/Vol] 135 mmol/L Low 136 - 145 mmol/L [facility] Urea nitrogen [Mass/Vol] 14 mg/dL 6 - 23 mg/dL [facility] Anion gap [Moles/Vol] 12 mmol/L Normal 10-20 [facility] Comment on above: Performed By: #### 2 2811-2 ####JANETH GRAFF L ([id number])[facility] ([facility])[address] [place] [address] Calcium [Mass/Vol] 8.9 mg/dL Normal 8.6-10.6 [facility] Comment on above: Performed By: #### 2 4321-2 ####JANETH RANGELER L ([id number])[facility] ([facility])[address] [place] [address] Chloride [Moles/Vol] 101 mmol/L Normal 98-107 [facility] Comment on above: Performed By: #### 2 4321-2 ####JANETH RANGELER L ([id number])[facility] ([facility])[address]13 [place] [address] CO2 [Moles/Vol] 26 mmol/L Normal 21-32 [facility] Comment on above: Performed By: #### 2 4321-2 ####JANETH GRAFF L ([id number])[facility] ([facility])[address] [place] [address] Creatinine [Mass/Vol] 0.97 mg/dL Normal 0.50-1.05 [facility] Comment on above: Performed By: #### 2 4321-2 ####JANETH GRAFF L ([id number])[facility] ([facility])[address]127 [place] [address] Glomerular filtration rate/1.73 sq M.predicted 70 mL/min/1.73m*2 Normal >60 [facility] Comment on above: Result Comment: Calc ulations of estimated GFR are performed using the 2020 CKD-EPI Study Refit equation without the race variable for the IDMS-Traceable creatinine methods.https://jasn.asnjournals.org/content/early/ N.1255213703 Performed By: #### 2 4321-2 ####JANETH MCDONALDTZER L ([id number])[facility] ([facility])[address]71 [place] [address] Glucose [Mass/Vol] 95 mg/dL Normal 74-99 [facility] Comment on above: Performed By: #### 2 4321-2 ####JANETH Galo ([id number])[facility] ([facility])[address]08 [place] [address] Potassium [Moles/Vol] 4.4 mmol/L Normal 3.5-5.3 [facility] Comment on above: Performed By: #### 2 4321-2 ####JANETH Galo ([id number])[facility] ([facility])[address]41 [place] [address] Sodium [Moles/Vol] 135 mmol/L Low 136-145 [facility] Comment on above: Performed By: #### 2 4321-2 ####JANETH Glao ([id number])[facility] ([facility])[address]98 [place] [address] Urea nitrogen [Mass/Vol] 14 mg/dL Normal 6-23 [facility] Comment on above: Performed By: #### 2 4321-2 ####JANETH Galo ([id number])[facility] ([facility])[address] [place] [address] CBC panel Auto (Bld)on 05-01 Erythrocyte distribution width (RBC) [Ratio] 18.6 % High 11.5 - 14.5 % [facility] Hematocrit (Bld) [Volume fraction] 27 % Low 36.0 - 46.0 % [facility] Hemoglobin (Bld) [Mass/Vol] 8 g/dL Low 12.0 - 16.0 g/dL [facility] Interpretation and review of laboratory results Abnormal [facility] MCH (RBC) [Entitic mass] 23.5 pg Low 26.0 - 34.0 pg [facility] MCHC (RBC) [Mass/Vol] 29.6 g/dL Low 32.0 - 36.0 g/dL [facility] MCV (RBC) [Entitic vol] 79 fL Low 80 - 100 fL [facility] Nucleated RBC/100 WBC (Bld) [Ratio] 0.3 % High [facility] Platelets (Bld) [#/Vol] 738 10*3/uL High [facility] RBC (Bld) [#/Vol] 3.4 10*6/uL Low [facility] WBC (Bld) [#/Vol] 9.7 10*3/uL [facility] Erythrocyte distribution width (RBC) [Ratio] 18.6 % High 11.5-14.5 [facility] Comment on above: Performed By: #### 5 8410-2 ####JANETH Galo ([id number])[facility] ([facility])[address] [place] [address] Hematocrit (Bld) [Volume fraction] 27.0 % Low 36.0-46.0 [facility] Comment on above: Performed By: #### 5 8410-2 ####JANETH Galo ([id number])[facility] ([facility])[address] [place] [address] Hemoglobin (Bld) [Mass/Vol] 8.0 g/dL Low 12.0-16.0 [facility] Comment on above: Performed By: #### 5 8410-2 ####JANETH Galo ([id number])[facility] ([facility])[address] [place] [address]1991 MCH (RBC) [Entitic mass] 23.5 pg Low 26.0-34.0 [facility] Comment on above: Performed By: #### 5 8410-2 ####JANETH Galo ([id number])[facility] ([facility])[address]88 [place] [address] MCHC (RBC) [Mass/Vol] 29.6 g/dL Low 32.0-36.0 [facility] Comment on above: Performed By: #### 5 8410-2 ####JANETH Galo ([id number])[facility] ([facility])[address]20 [place] [address] MCV (RBC) [Entitic vol] 79 fL Low 80-100 [facility] Comment on above: Performed By: #### 5 8410-2 ####JANETH Galo ([id number])[facility] ([facility])19794 [place] [address] Nucleated RBC/100 WBC (Bld) [Ratio] 0.3 /100 WBCs High 0.0-0.0 [facility] Comment on above: Performed By: #### 5 8410-2 ####JANETH Galo ([id number])[facility] ([facility])[address]276 [place] [address] Platelets (Bld) [#/Vol] 738 x10*3/uL High 150-450 [facility] Comment on above: Performed By: #### 5 8410-2 ####JANETH Galo ([id number])[facility] ([facility])[address]71 [place] [address] RBC (Bld) [#/Vol] 3.40 x10*6/uL Low 4.00-5.20 [facility] Comment on above: Performed By: #### 5 8410-2 ####JANETH Galo ([id number])[facility] ([facility])[address]774 [place] [address] WBC (Bld) [#/Vol] 9.7 x10*3/uL Normal 4.4-11.3 [facility] Comment on above: Performed By: #### 5 8410-2 ####JANETH Galo ([id number])[facility] ([facility])[address]19 [place] [address] Nicotine + Metabolites, Urin ita 05-01-2024 Anabasine (U) [Mass/Vol] <5 ng/mL [facility] Cotinine (U) [Mass/Vol] 74 ng/mL [facility] Nicotine (U) [Mass/Vol] <15 ng/mL [facility] Lujyo-9-Xlprgfqhqqkxm ne (U) [Mass/Vol] 1686 ng/mL [facility] Tissue/Wound Culture/Smearon 05-01-2024 Bacteria identified Cx Nom (Unsp spec) Negative [facility] Work Phone: Bacteria identified Cx Nom (Unsp spec) (2+) Few Mixed Skin Microorganisms [facility] Work Phone: Tissue/Wound Culture/SmearOr dered By: Radha Bird on 05-01-2024 Bacteria identified Cx Nom (Unsp spec) (1+) Rare Alcaligenes faecalis Abnormal [facility] Bacteria identified Cx Nom (Unsp spec) Negative [facility] Bacteria identified Cx Nom ( Unsp spec)on 04-30-2024 Microscopic observation Gram stain Nom (Unsp spec) (2+) Few Polymorphonuclear leukocytes [facility] Work Phone: Microscopic observation Gram stain Nom (Unsp spec) No organisms seen [facility] Work Phone: [facility] Work Phone: Interpretation and review of laboratory results Abnormal [facility] Work Phone: Microscopic observation Gram stain Nom (Unsp spec) No polymorphonuclear leukocytes seen Abnormal [facility] Work Phone: Microscopic observation Gram stain Nom (Unsp spec) Negative Abnormal [facility] Work Phone: [facility] Work Phone: Basic metabolic 2000 panelon 04-30-2024 Anion gap [Moles/Vol] 14 mmol/L 10 - 2 0 mmol/L [facility] Calcium [Mass/Vol] 8.8 mg/dL 8.6 - 10. 6 mg/dL [facility] Chloride [Moles/Vol] 101 mmol/L 98 - 10 7 mmol/L [facility] CO2 [Moles/Vol] 25 mmol/L 21 - 32 mmol/L [facility] Creatinine [Mass/Vol] 0.85 mg/dL 0.50 - 1.05 mg/dL [facility] GFR/1.73 sq M.predicted among non-blacks MDRD (S/P/Bld) [Vol rate/Area] 83 mL/min/{1.73_m2} - PINF [facility] Glucose [Mass/Vol] 86 mg/dL 74 - 99 mg/dL [facility] Interpretation and review of laboratory results Abnormal [facility] Potassium [Moles/Vol] 4.5 mmol/L 3.5 - 5.3 mmol/L [facility] Sodium [Moles/Vol] 135 mmol/L Low 136 - 145 mmol/L [facility] Urea nitrogen [Mass/Vol] 13 mg/dL 6 - 23 mg/dL [facility] Anion gap [Moles/Vol] 14 mmol/L Normal 10-20 [facility] Comment on above: Performed By: #### 2 4321-2 ####JANETH Galo ([id number])[facility] ([facility])[address]36 [place] [address] Calcium [Mass/Vol] 8.8 mg/dL Normal 8.6-10.6 [facility] Comment on above: Performed By: #### 2 4321-2 ####JANETH GRAFF L ([id number])[facility] ([facility])[address]26 [place] [address] Chloride [Moles/Vol] 101 mmol/L Normal 98-107 [facility] Comment on above: Performed By: #### 2 4321-2 ####JANETH GRAFF L ([id number])[facility] ([facility])[address] [place] [address] CO2 [Moles/Vol] 25 mmol/L Normal 21-32 [facility] Comment on above: Performed By: #### 2 4321-2 ####JANETH GRAFF L ([id number])[facility] ([facility])[address] [place] [address] Creatinine [Mass/Vol] 0.85 mg/dL Normal 0.50-1.05 [facility] Comment on above: Performed By: #### 2 4321-2 ####JANETH GRAFF L ([id number])[facility] ([facility])[address]38 [place] [address] Glomerular filtration rate/1.73 sq M.predicted 83 mL/min/1.73m*2 Normal >60 [facility] Comment on above: Result Comment: Calc ulations of estimated GFR are performed using the 2020 CKD-EPI Study Refit equation without the race variable for the IDMS-Traceable creatinine methods.https://jasn.asnjournals.org/content/early/ N.8838162289 Performed By: #### 2 4321-2 ####JANETH GRAFF L ([id number])[facility] ([facility])[address]68 [place] [address] Glucose [Mass/Vol] 86 mg/dL Normal 74-99 [facility] Comment on above: Performed By: #### 2 4321-2 ####JANETH CONNORMOTZER L ([id number])[facility] ([facility])[address]707 [place] [address] Potassium [Moles/Vol] 4.5 mmol/L Normal 3.5-5.3 [facility] Comment on above: Performed By: #### 2 4321-2 ####JANETH CONNORMOTZER L ([id number])[facility] ([facility])[address]39 [place] [address] Sodium [Moles/Vol] 135 mmol/L Low 136-145 [facility] Comment on above: Performed By: #### 2 4321-2 ####JANETH CONNORMOTZER L ([id number])[facility] ([facility])[address]43 [place] [address] Urea nitrogen [Mass/Vol] 13 mg/dL Normal 6-23 [facility] Comment on above: Performed By: #### 2 4321-2 ####JANETH CONNORMOTZER L ([id number])[facility] ([facility])[address]4 [place] [address] CBC panel Auto (Bld)on 04-30 Erythrocyte distribution width (RBC) [Ratio] 18.6 % High 11.5 - 14.5 % [facility] Hematocrit (Bld) [Volume fraction] 31.3 % Low 36.0 - 46.0 % [facility] Hemoglobin (Bld) [Mass/Vol] 8.7 g/dL Low 12.0 - 16.0 g/dL [facility] Interpretation and review of laboratory results Abnormal [facility] MCH (RBC) [Entitic mass] 23.9 pg Low 26.0 - 34.0 pg [facility] MCHC (RBC) [Mass/Vol] 27.8 g/dL Low 32.0 - 36.0 g/dL [facility] MCV (RBC) [Entitic vol] 86 fL 80 - 100 fL [facility] Nucleated RBC/100 WBC (Bld) [Ratio] 0.3 % High [facility] Platelets (Bld) [#/Vol] 754 10*3/uL High [facility] RBC (Bld) [#/Vol] 3.64 10*6/uL [facility] WBC (Bld) [#/Vol] 7.8 10*3/uL [facility] Erythrocyte distribution width (RBC) [Ratio] 18.6 % High 11.5-14.5 [facility] Comment on above: Performed By: #### 5 8410-2 ####JANETH Galo ([id number])[facility] ([facility])[id number] [place] [address] Hematocrit (Bld) [Volume fraction] 31.3 % Low 36.0-46.0 [facility] Comment on above: Performed By: #### 5 8410-2 ####JANETH Galo ([id number])[facility] ([facility])[address] [place] [address] Hemoglobin (Bld) [Mass/Vol] 8.7 g/dL Low 12.0-16.0 [facility] Comment on above: Performed By: #### 5 8410-2 ####JANETH Galo ([id number])[facility] ([facility])[address] [place] [address] MCH (RBC) [Entitic mass] 23.9 pg Low 26.0-34.0 [facility] Comment on above: Performed By: #### 5 8410-2 ####JANETH Galo ([id number])[facility] ([facility])[address] [place] [address] MCHC (RBC) [Mass/Vol] 27.8 g/dL Low 32.0-36.0 [facility] Comment on above: Performed By: #### 5 8410-2 ####JANETH Galo ([id number])[facility] ([facility])[address] [place] [address] MCV (RBC) [Entitic vol] 86 fL Normal 80-100 [facility] Comment on above: Performed By: #### 5 8410-2 ####JANETH Galo ([id number])[facility] ([facility])[address] [place] [address] Nucleated RBC/100 WBC (Bld) [Ratio] 0.3 /100 WBCs High 0.0-0.0 [facility] Comment on above: Performed By: #### 5 8410-2 ####JANETH Galo ([id number])[facility] ([facility])[address] [place] [address] Platelets (Bld) [#/Vol] 754 x10*3/uL High 150-450 [facility] Comment on above: Performed By: #### 5 8410-2 ####JANETH Galo ([id number])[facility] ([facility])[address] [place] [address] RBC (Bld) [#/Vol] 3.64 x10*6/uL Low 4.00-5.20 [facility] Comment on above: Performed By: #### 5 8410-2 ####JANETH Galo ([id number])[facility] ([facility])[address] [place] [address] WBC (Bld) [#/Vol] 7.8 x10*3/uL Normal 4.4-11.3 [facility] Comment on above: Performed By: #### 5 8410-2 ####JANETH Galo ([id number])[facility] ([facility])[id number] [place] [address] Tissue/Wound Culture/Smearon 04-30-2024 Bacteria identified Cx Nom (Unsp spec) (1+) Rare Mixed Skin Microorganisms [facility] Work Phone: Bacteria identified Cx Nom (Unsp spec) (4+) Abundant Mixed Gram-Positive and Gram-Negative Bacteria [facility] Work Phone: Bacteria identified Cx Nom ( Unsp spec)Ordered By: Kristi Rahman on 04-29-2024 Interpretation and review of laboratory results Abnormal [facility] Microscopic observation Gram stain Nom (Unsp spec) (3+) Moderate Polymorphonuclear leukocytes [facility] Microscopic observation Gram stain Nom (Unsp spec) No organisms seen [facility] Basic metabolic 2000 panelon 04-29-2024 Anion gap [Moles/Vol] 11 mmol/L 10 - 2 0 mmol/L [facility] Calcium [Mass/Vol] 8.7 mg/dL 8.6 - 10. 6 mg/dL [facility] Chloride [Moles/Vol] 101 mmol/L 98 - 10 7 mmol/L [facility] CO2 [Moles/Vol] 26 mmol/L 21 - 32 mmol/L [facility] Creatinine [Mass/Vol] 0.8 mg/dL 0.50 - 1.05 mg/dL [facility] GFR/1.73 sq M.predicted among non-blacks MDRD (S/P/Bld) [Vol rate/Area] 89 mL/min/{1.73_m2} - PINF [facility] Glucose [Mass/Vol] 104 mg/dL High 74 - 99 mg/dL [facility] Interpretation and review of laboratory results Abnormal [facility] Potassium [Moles/Vol] 4.3 mmol/L 3.5 - 5.3 mmol/L [facility] Sodium [Moles/Vol] 134 mmol/L Low 136 - 145 mmol/L [facility] Urea nitrogen [Mass/Vol] 11 mg/dL 6 - 23 mg/dL [facility] Anion gap [Moles/Vol] 11 mmol/L Normal 10-20 [facility] Comment on above: Performed By: #### 2 4321-2 ####JANETH GRAFF L ([id number])[facility] ([facility])[address] [place] [address] Calcium [Mass/Vol] 8.7 mg/dL Normal 8.6-10.6 [facility] Comment on above: Performed By: #### 2 4321-2 ####JANETH GRAFF L ([id number])[facility] ([facility])[address] [place] [address] Chloride [Moles/Vol] 101 mmol/L Normal 98-107 [facility] Comment on above: Performed By: #### 2 4321-2 ####JANETH GRAFF L ([id number])[facility] ([facility])[address] [place] [address] CO2 [Moles/Vol] 26 mmol/L Normal 21-32 [facility] Comment on above: Performed By: #### 2 4321-2 ####JANETH MCDONALDTZER L ([id number])[facility] ([facility])[address]47 [place] [address] Creatinine [Mass/Vol] 0.80 mg/dL Normal 0.50-1.05 [facility] Comment on above: Performed By: #### 2 4321-2 ####JANETH GRAFF L ([id number])[facility] ([facility])[address] [place] [address] Glomerular filtration rate/1.73 sq M.predicted 89 mL/min/1.73m*2 Normal >60 [facility] Comment on above: Result Comment: Calc ulations of estimated GFR are performed using the 2020 CKD-EPI Study Refit equation without the race variable for the IDMS-Traceable creatinine methods.https://jasn.asnjournals.org/content/early// N.6488809452 Performed By: #### 2 4321-2 ####JANETH Galo ([id number])[facility] ([facility])[address] [place] [address] Glucose [Mass/Vol] 104 mg/dL High 74-99 [facility] Comment on above: Performed By: #### 2 4321-2 ####JANETH Galo ([id number])[facility] ([facility])[address] [place] [address] Potassium [Moles/Vol] 4.3 mmol/L Normal 3.5-5.3 [facility] Comment on above: Performed By: #### 2 4321-2 ####JANETH Galo ([id number])[facility] ([facility])[address]607 [place] [address] Sodium [Moles/Vol] 134 mmol/L Low 136-145 [facility] Comment on above: Performed By: #### 2 4321-2 ####JANETH Galo ([id number])[facility] ([facility])[address]51 [place] [address] Urea nitrogen [Mass/Vol] 11 mg/dL Normal 6-23 [facility] Comment on above: Performed By: #### 2 4321-2 ####JANETH Galo ([id number])[facility] ([facility])[address] [place] [address] CBC panel Auto (Bld)on 04-29 Erythrocyte distribution width (RBC) [Ratio] 18.2 % High 11.5 - 14.5 % [facility] Hematocrit (Bld) [Volume fraction] 27.3 % Low 36.0 - 46.0 % [facility] Hemoglobin (Bld) [Mass/Vol] 8.1 g/dL Low 12.0 - 16.0 g/dL [facility] Interpretation and review of laboratory results Abnormal [facility] MCH (RBC) [Entitic mass] 24.5 pg Low 26.0 - 34.0 pg [facility] MCHC (RBC) [Mass/Vol] 29.7 g/dL Low 32.0 - 36.0 g/dL [facility] MCV (RBC) [Entitic vol] 83 fL 80 - 100 fL [facility] Nucleated RBC/100 WBC (Bld) [Ratio] 0 % [facility] Platelets (Bld) [#/Vol] 759 10*3/uL High [facility] RBC (Bld) [#/Vol] 3.3 10*6/uL Low [facility] WBC (Bld) [#/Vol] 9.6 10*3/uL [facility] Erythrocyte distribution width (RBC) [Ratio] 18.2 % High 11.5-14.5 [facility] Comment on above: Performed By: #### 5 8410-2 ####JANETH Galo ([id number])[facility] ([facility])[address] [place] [address] Hematocrit (Bld) [Volume fraction] 27.3 % Low 36.0-46.0 [facility] Comment on above: Performed By: #### 5 8410-2 ####JANETH Galo ([id number])[facility] ([facility])[address] [place] [address] Hemoglobin (Bld) [Mass/Vol] 8.1 g/dL Low 12.0-16.0 [facility] Comment on above: Performed By: #### 5 8410-2 ####JANETH Galo ([id number])[facility] ([facility])[address] [place] [address] MCH (RBC) [Entitic mass] 24.5 pg Low 26.0-34.0 [facility] Comment on above: Performed By: #### 5 8410-2 ####JANETH Galo ([id number])[facility] ([facility])[address] [place] [address] MCHC (RBC) [Mass/Vol] 29.7 g/dL Low 32.0-36.0 [facility] Comment on above: Performed By: #### 5 8410-2 ####JANETH Galo ([id number])[facility] ([facility])[address]87 [place] [address] MCV (RBC) [Entitic vol] 83 fL Normal 80-100 [facility] Comment on above: Performed By: #### 5 8410-2 ####JANETH Galo ([id number])[facility] ([facility])[address]807 [place] [address] Nucleated RBC/100 WBC (Bld) [Ratio] 0.0 /100 WBCs Normal 0.0-0.0 [facility] Comment on above: Performed By: #### 5 8410-2 ####JANETH Galo ([id number])[facility] ([facility])[address]23 [place] [address] Platelets (Bld) [#/Vol] 759 x10*3/uL High 150-450 [facility] Comment on above: Performed By: #### 5 8410-2 ####JANETH Galo ([id number])[facility] ([facility])[address] [place] [address] RBC (Bld) [#/Vol] 3.30 x10*6/uL Low 4.00-5.20 [facility] Comment on above: Performed By: #### 5 8410-2 ####JANETH Galo ([id number])[facility] ([facility])[address]852 [place] [address] WBC (Bld) [#/Vol] 9.6 x10*3/uL Normal 4.4-11.3 [facility] Comment on above: Performed By: #### 5 8410-2 ####JANETH Galo ([id number])[facility] ([facility])[address]38 [place] [address] Ferritinon 04-29-2024 Ferritin [Mass/Vol] 34 ng/mL 8 - 150 ng/mL [facility] Ferritin [Mass/Vol] 34 ng/mL Normal 8-150 [facility] Comment on above: Performed By: #### 2 276-4 ####JANETH Galo ([id number])[facility] ([facility])[address] [place] [address] Ferritin [Mass/Vol]on 2024 Interpretation and review of laboratory results Normal [facility] Iron and Iron binding capaci ty panelon 04-29-2024 Interpretation and review of laboratory results Abnormal [facility] Iron [Mass/Vol] 15 ug/dL Low 35 - 150 ug/dL [facility] Iron binding capacity [Mass/Vol] 324 ug/dL 240 - 445 ug/dL [facility] Iron binding capacity.unsaturated [Mass/Vol] 309 ug/dL 110 - 370 ug/dL [facility] Iron saturation [Mass fraction] 5 % Low 25 - 45 % [facility] Iron [Mass/Vol] 15 ug/dL Low 35-150 [facility] Comment on above: Performed By: #### 5 0190-8 ####JANETH Galo ([id number])[facility] ([facility])[address] [place] [address] Iron binding capacity [Mass/Vol] 324 ug/dL Normal 240-445 [facility] Comment on above: Performed By: #### 5 0190-8 ####JANETH GRAFF L ([id number])[facility] ([facility])[address]346 [place] [address] Iron binding capacity.unsaturated [Mass/Vol] 309 ug/dL Normal 110-370 [facility] Comment on above: Performed By: #### 5 0190-8 ####JANETH CONNORMOTZER L ([id number])[facility] ([facility])[address] [place] [address] Iron saturation [Mass fraction] 5 % Low 25-45 [facility] Comment on above: Performed By: #### 5 0190-8 ####JANETH CONNORMOTZER L ([id number])[facility] ([facility])[address] [place] [address] No Panel Informationon 04-29 [facility] Slide RequestOrdered By: Karishma Welch on 04-29-2024 [facility] Tissue/Wound Culture/SmearOr dered By: Kristi Rahman on 04-29-2024 Bacteria identified Cx Nom (Unsp spec) (1+) Rare Providencia rettgeri Abnormal [facility] Bacteria identified Cx Nom (Unsp spec) (1+) Rare Alcaligenes faecalis Abnormal [facility] Bacteria identified Cx Nom (Unsp spec) Negative [facility] Wound Cultureon 04-29-2024 WC Alcaligenes faecalis ssp [...] Meropenem Islt CORNEL <=0.25 S Pip+Tazo Islt CONREL <=4 S TMP SMX Islt CORNEL >=320 [...] R Vancomycin Islt CORNEL 1 S Normal [facility] Comment on above: Performed By: #### M 100.2000, M100.3000 #### [facility] [address] [place], [address] Bacteria identifiedon 2024 Bacteria identified Cx Nom (Unsp spec) Normal [facility] Comment on above: Performed By: #### 6 463-4 ####JANETH Galo ([id number])[facility] ([facility])[address] [place] [address] Bacteria identified Cx Nom (Unsp spec) Abnormal [facility] Comment on above: Performed By: #### 6 463-4 ####JANETH Galo ([id number])[facility] ([facility])[address] [place] [address] Bacteria identified Cx Nom (Unsp spec) Abnormal [facility] Comment on above: Performed By: #### 6 463-4 ####JANETH Galo ([id number])[facility] ([facility])[address] [place] [address] Bacteria identified Cx Nom (Unsp spec) Abnormal [facility] Comment on above: Performed By: #### 6 463-4 ####JANETH Galo ([id number])[facility] ([facility])[address] [place] [address] Basic metabolic 2000 panelon 04-28-2024 Anion gap [Moles/Vol] 13 mmol/L 10 - 2 0 mmol/L [facility] Calcium [Mass/Vol] 8.8 mg/dL 8.6 - 10. 6 mg/dL [facility] Chloride [Moles/Vol] 103 mmol/L 98 - 10 7 mmol/L [facility] CO2 [Moles/Vol] 23 mmol/L 21 - 32 mmol/L [facility] Creatinine [Mass/Vol] 1.06 mg/dL High 0.50 - 1.05 mg/dL [facility] GFR/1.73 sq M.predicted among non-blacks MDRD (S/P/Bld) [Vol rate/Area] 63 mL/min/{1.73_m2} - PINF [facility] Glucose [Mass/Vol] 95 mg/dL 74 - 99 mg/dL [facility] Interpretation and review of laboratory results Abnormal [facility] Potassium [Moles/Vol] 4.5 mmol/L 3.5 - 5.3 mmol/L [facility] Sodium [Moles/Vol] 134 mmol/L Low 136 - 145 mmol/L [facility] Urea nitrogen [Mass/Vol] 9 mg/dL 6 - 23 mg/dL [facility] Anion gap [Moles/Vol] 13 mmol/L Normal 10-20 [facility] Comment on above: Performed By: #### 2 4321-2 ####JANETH Galo ([id number])[facility] ([facility])[address] [place] [address] Calcium [Mass/Vol] 8.8 mg/dL Normal 8.6-10.6 [facility] Comment on above: Performed By: #### 2 4321-2 ####JANETH GRAFF L ([id number])[facility] ([facility])[address]13 [place] [address] Chloride [Moles/Vol] 103 mmol/L Normal 98-107 [facility] Comment on above: Performed By: #### 2 4321-2 ####JANETH GRAFF L ([id number])[facility] ([facility])[address] [place] [address] CO2 [Moles/Vol] 23 mmol/L Normal 21-32 [facility] Comment on above: Performed By: #### 2 4321-2 ####JANETH GRAFF L ([id number])[facility] ([facility])[address] [place] [address] Creatinine [Mass/Vol] 1.06 mg/dL High 0.50-1.05 [facility] Comment on above: Performed By: #### 2 4321-2 ####JANETH RANGELER L ([id number])[facility] ([facility])[address] [place] [address] Glomerular filtration rate/1.73 sq M.predicted 63 mL/min/1.73m*2 Normal >60 [facility] Comment on above: Result Comment: Calc ulations of estimated GFR are performed using the 2020 CKD-EPI Study Refit equation without the race variable for the IDMS-Traceable creatinine methods.https://jasn.asnjournals.org/content/early/ N.6199751373 Performed By: #### 2 4321-2 ####JANETH GRAFF L ([id number])[facility] ([facility])[address] [place] [address] Glucose [Mass/Vol] 95 mg/dL Normal 74-99 [facility] Comment on above: Performed By: #### 2 4321-2 ####JANETH CONNORMOTZER L (04391)[facility] ([facility])[address]84 [place] [address] Potassium [Moles/Vol] 4.5 mmol/L Normal 3.5-5.3 [facility] Comment on above: Performed By: #### 2 4321-2 ####JANETH CONNORMOTZER L ([id number])[facility] ([facility])[address]487 [place] [address] Sodium [Moles/Vol] 134 mmol/L Low 136-145 [facility] Comment on above: Performed By: #### 2 4321-2 ####JANETH CONNORMOTZER L ([id number])[facility] ([facility])[address]92 [place] [address] Urea nitrogen [Mass/Vol] 9 mg/dL Normal 6-23 [facility] Comment on above: Performed By: #### 2 4321-2 ####JANETH CONNORMOTZER L ([id number])[facility] ([facility])[address]80 [place] [address] Blood type and Indirect anti body screen panel (Bld)on 04-28-2024 ABO group Nom (Bld) A [facility] Blood group antibody screen Ql Negative [facility] D Ag Ql (Bld) Positive [facility] ABO group Nom (Bld) A Normal [facility] Comment on above: Performed By: #### 3 4532-2 ####JANETH Galo ([id number])[facility] ([facility])[address] [place] [address] Blood group antibody screen Ql Negative Normal [facility] Comment on above: Performed By: #### 3 4532-2 ####JANETH Galo ([id number])[facility] ([facility])[address] [place] [address] D Ag Ql (Bld) Positive Normal [facility] Comment on above: Performed By: #### 3 4532-2 ####JANETH Galo ([id number])[facility] ([facility])[address] [place] [address] CBC panel Auto (Bld)on 04-28 Erythrocyte distribution width (RBC) [Ratio] 18.5 % High 11.5 - 14.5 % [facility] Hematocrit (Bld) [Volume fraction] 31.8 % Low 36.0 - 46.0 % [facility] Hemoglobin (Bld) [Mass/Vol] 9 g/dL Low 12.0 - 16.0 g/dL [facility] Interpretation and review of laboratory results Abnormal [facility] MCH (RBC) [Entitic mass] 24.4 pg Low 26.0 - 34.0 pg [facility] MCHC (RBC) [Mass/Vol] 28.3 g/dL Low 32.0 - 36.0 g/dL [facility] MCV (RBC) [Entitic vol] 86 fL 80 - 100 fL [facility] Nucleated RBC/100 WBC (Bld) [Ratio] 0.3 % High [facility] Platelets (Bld) [#/Vol] 743 10*3/uL [facility] RBC (Bld) [#/Vol] 3.69 10*6/uL [facility] WBC (Bld) [#/Vol] 11.4 10*3/uL [facility] Erythrocyte distribution width (RBC) [Ratio] 18.5 % High 11.5-14.5 [facility] Comment on above: Performed By: #### 5 8410-2 ####JANETH Galo ([id number])[facility] ([facility])[address] [place] [address] Hematocrit (Bld) [Volume fraction] 31.8 % Low 36.0-46.0 [facility] Comment on above: Performed By: #### 5 8410-2 ####JANETH Galo ([id number])[facility] ([facility])[address]225 [place] [address] Hemoglobin (Bld) [Mass/Vol] 9.0 g/dL Low 12.0-16.0 [facility] Comment on above: Performed By: #### 5 8410-2 ####JANETH Galo ([id number])[facility] ([facility])[address]056 [place] [address] MCH (RBC) [Entitic mass] 24.4 pg Low 26.0-34.0 [facility] Comment on above: Performed By: #### 5 8410-2 ####JANETH Galo ([id number])[facility] ([facility])[address] [place] [address] MCHC (RBC) [Mass/Vol] 28.3 g/dL Low 32.0-36.0 [facility] Comment on above: Performed By: #### 5 8410-2 ####JANETH Galo (55804)[facility] ([facility])[address] [place] [address] MCV (RBC) [Entitic vol] 86 fL Normal 80-100 [facility] Comment on above: Performed By: #### 5 8410-2 ####JANETH Galo ([id number])[facility] ([facility])[address] [place] [address] Nucleated RBC/100 WBC (Bld) [Ratio] 0.3 /100 WBCs High 0.0-0.0 [facility] Comment on above: Performed By: #### 5 8410-2 ####JANETH Galo ([id number])[facility] ([facility])[address] [place] [address] Platelets (Bld) [#/Vol] 743 x10*3/uL High 150-450 [facility] Comment on above: Performed By: #### 5 8410-2 ####JANETH Galo ([id number])[facility] ([facility])[address] [place] [address] RBC (Bld) [#/Vol] 3.69 x10*6/uL Low 4.00-5.20 [facility] Comment on above: Performed By: #### 5 8410-2 ####JANETH Galo ([id number])[facility] ([facility])[address] [place] [address] WBC (Bld) [#/Vol] 11.4 x10*3/uL High 4.4-11.3 [facility] Comment on above: Performed By: #### 5 8410-2 ####JANETH Galo ([id number])[facility] ([facility])[address] [place] [address] Fungus identifiedon 04-29-19 25 Fungus identified Cx Nom (Unsp spec) [facility] Comment on above: Performed By: #### 5 80-1 ####JANETH Galo ([id number])[facility] ([facility])[address] [place] [address] Fungus identified Cx Nom (Unsp spec) [facility] Comment on above: Performed By: #### 5 80-1 ####JANETH Galo ([id number])[facility] ([facility])[address] [place] [address] Fungus identified Cx Nom (Unsp spec) Abnormal [facility] Comment on above: Performed By: #### 5 80-1 ####JANETH Galo ([id number])[facility] ([facility])[address]271 [place] [address] Fungus identified Cx Nom (Unsp spec) [facility] Comment on above: Performed By: #### 5 80-1 ####JANETH Galo ([id number])[facility] ([facility])[address] [place] [address] NICOTINE + METABOLITES, URIN Ita 04-28-2024 Anabasine (U) [Mass/Vol] <5 Normal [facility] Comment on above: Performed By: #### N ICMU ####[facility] ([facility]) ([id number])500 [place] [address] Cotinine (U) [Mass/Vol] 32 ng/mL [facility] Comment on above: Performed By: #### N ICMU ####[facility] ([facility]) ([id number])500 [place] [address] Nicotine (U) [Mass/Vol] <15 [facility] Comment on above: Result Comment: INTE RPRETIVE INFORMATION: Nicotine and Metabolites, Urine, QuantitativeMethodology: Quantitative Liquid Chromatography-Tandem MassSpectrometryPositive cutoff:Nicotine 15 ng/mLCotinine 15 ng/aR2-TY-Ijcmolna 50 ng/mLAnabasine 5 ng/mLFor medical purposes only; [...] was developed and its performance characteristicsdetermined by [employer]. It has not been cleared orapproved by the [place] Food and Drug Administration. This test wasperformed in a CLIA certified laboratory and is intended forclinical purposes.Performed By: [employer] [place], [place] [address]Aukdmrdgbq Director: Jasper Larry MD, PhDCLIA Number: [id number] Performed By: #### N ICMU ####[facility] ([facility]) ([id number])500 [place] [address] Gtbzk-8-Awgjanxgshskf ne (U) [Mass/Vol] 1178 ng/mL Normal [facility] Comment on above: Performed By: #### N ICMU ####[facility] ([facility]) ([id number])500 [place] [address] Basic metabolic 2000 panelon 04-27-2024 Anion gap [Moles/Vol] 11 mmol/L 10 - 2 0 mmol/L [facility] Calcium [Mass/Vol] 8.5 mg/dL Low 8.6 - 10. 6 mg/dL [facility] Chloride [Moles/Vol] 106 mmol/L 98 - 10 7 mmol/L [facility] CO2 [Moles/Vol] 26 mmol/L 21 - 32 mmol/L [facility] Creatinine [Mass/Vol] 0.73 mg/dL 0.50 - 1.05 mg/dL [facility] eGFR - PINF [facility] Glucose [Mass/Vol] 82 mg/dL 74 - 99 mg/dL [facility] Potassium [Moles/Vol] 4.1 mmol/L 3.5 - 5.3 mmol/L [facility] Sodium [Moles/Vol] 139 mmol/L 136 - 145 mmol/L [facility] Urea nitrogen [Mass/Vol] 8 mg/dL 6 - 23 mg/dL [facility] Anion gap [Moles/Vol] 11 mmol/L Normal 10-20 [facility] Comment on above: Performed By: #### 2 4321-2 ####JANETH Galo ([id number])[facility] ([facility])[address] [place] [address] Calcium [Mass/Vol] 8.5 mg/dL Low 8.6-10.6 [facility] Comment on above: Performed By: #### 2 4321-2 ####JANETH GRAFF L ([id number])[facility] ([facility])[address] [place] [address] Chloride [Moles/Vol] 106 mmol/L Normal 98-107 [facility] Comment on above: Performed By: #### 2 4321-2 ####JANETH GRAFF L ([id number])[facility] ([facility])[address] [place] [address] CO2 [Moles/Vol] 26 mmol/L Normal 21-32 [facility] Comment on above: Performed By: #### 2 4321-2 ####JANETH Galo ([id number])[facility] ([facility])[address] [place] [address] Creatinine [Mass/Vol] 0.73 mg/dL Normal 0.50-1.05 [facility] Comment on above: Performed By: #### 2 4321-2 ####JANETH Galo ([id number])[facility] ([facility])[address] [place] [address] GFR/1.73 sq M.predicted MDRD (S/P/Bld) [Vol rate/Area] mL/min/{1.73_m2} Normal >60 [facility] Comment on above: Result Comment: Calc ulations of estimated GFR are performed using the 2020 CKD-EPI Study Refit equation without the race variable for the IDMS-Traceable creatinine methods.https://jasn.asnjournals.org/content/early/ N.7733786149 Performed By: #### 2 4321-2 ####JANETH Galo ([id number])[facility] ([facility])[address] [place] [address] Glucose [Mass/Vol] 82 mg/dL Normal 74-99 [facility] Comment on above: Performed By: #### 2 4321-2 ####JANETH Galo ([id number])[facility] ([facility])[address] [place] [address] Potassium [Moles/Vol] 4.1 mmol/L Normal 3.5-5.3 [facility] Comment on above: Performed By: #### 2 4321-2 ####JANETH Galo ([id number])[facility] ([facility])[address] [place] [address] Sodium [Moles/Vol] 139 mmol/L Normal 136-145 [facility] Comment on above: Performed By: #### 2 4321-2 ####JANETH Galo ([id number])[facility] ([facility])[address] [place] [address] Urea nitrogen [Mass/Vol] 8 mg/dL Normal 6-23 [facility] Comment on above: Performed By: #### 2 4321-2 ####JANETH GRAFF L ([id number])[facility] ([facility])[address] [place] [address] CBC panel Auto (Bld)on 04-27 Erythrocyte distribution width (RBC) [Ratio] 18 % High 11.5 - 14.5 % [facility] Hematocrit (Bld) [Volume fraction] 31.4 % Low 36.0 - 46.0 % [facility] Hemoglobin (Bld) [Mass/Vol] 8.7 g/dL Low 12.0 - 16.0 g/dL [facility] Interpretation and review of laboratory results Abnormal [facility] MCH (RBC) [Entitic mass] 24.1 pg Low 26.0 - 34.0 pg [facility] MCHC (RBC) [Mass/Vol] 27.7 g/dL Low 32.0 - 36.0 g/dL [facility] MCV (RBC) [Entitic vol] 87 fL 80 - 100 fL [facility] Nucleated RBC/100 WBC (Bld) [Ratio] 0.2 % High [facility] Platelets (Bld) [#/Vol] 745 10*3/uL High [facility] RBC (Bld) [#/Vol] 3.61 10*6/uL Low [facility] WBC (Bld) [#/Vol] 12.1 10*3/uL High [facility] Erythrocyte distribution width (RBC) [Ratio] 18.0 % High 11.5-14.5 [facility] Comment on above: Performed By: #### 5 8410-2 ####JANETH Galo ([id number])[facility] ([facility])[address] [place] [address] Hematocrit (Bld) [Volume fraction] 31.4 % Low 36.0-46.0 [facility] Comment on above: Performed By: #### 5 8410-2 ####JANETH Galo (85553)[facility] ([facility])[address] [place] [address] Hemoglobin (Bld) [Mass/Vol] 8.7 g/dL Low 12.0-16.0 [facility] Comment on above: Performed By: #### 5 8410-2 ####JANETH Galo ([id number])[facility] ([facility])[address] [place] [address] MCH (RBC) [Entitic mass] 24.1 pg Low 26.0-34.0 [facility] Comment on above: Performed By: #### 5 8410-2 ####JANETH Galo (19862)[facility] ([facility])[address] [place] [address] MCHC (RBC) [Mass/Vol] 27.7 g/dL Low 32.0-36.0 [facility] Comment on above: Performed By: #### 5 8410-2 ####JANETH Galo ([id number])[facility] ([facility])[address] [place] [address] MCV (RBC) [Entitic vol] 87 fL Normal 80-100 [facility] Comment on above: Performed By: #### 5 8410-2 ####JANETH Galo ([id number])[facility] ([facility])[address] [place] [address] Nucleated RBC/100 WBC (Bld) [Ratio] 0.2 /100 WBCs High 0.0-0.0 [facility] Comment on above: Performed By: #### 5 8410-2 ####JANETH Galo ([id number])[facility] ([facility])[address] [place] [address] Platelets (Bld) [#/Vol] 745 x10*3/uL High 150-450 [facility] Comment on above: Performed By: #### 5 8410-2 ####JANETH Galo ([id number])[facility] ([facility])[address] [place] [address] RBC (Bld) [#/Vol] 3.61 x10*6/uL Low 4.00-5.20 [facility] Comment on above: Performed By: #### 5 8410-2 ####JANETH Galo ([id number])[facility] ([facility])[address] [place] [address] WBC (Bld) [#/Vol] 12.1 x10*3/uL High 4.4-11.3 [facility] Comment on above: Performed By: #### 5 8410-2 ####JANETH Galo ([id number])[facility] ([facility])[address] [place] [address] CT Lower leg - right W contr ast Fritz 04-27-2024 UH MMODAL UH MMODAL [facility] Work Phone: CT Lower leg - right W contr ast IVOrdered By: Jordan Calvin on 04-27-2024 [facility] Work Phone: Magnesiumon 04-27-2024 Magnesium [Mass/Vol] 2.36 mg/dL 1.60 - 2.40 mg/dL [facility] Magnesium [Mass/Vol] 2.36 mg/dL Normal 1.60-2.40 [facility] Comment on above: Performed By: #### 1 9123-9 ####JANETH Galo ([id number])[facility] ([facility])[address] [place] [address] Magnesium [Mass/Vol]on 04-27 Interpretation and review of laboratory results [facility] NICOTINE + METABOLITES, URIN Ita 04-27-2024 Anabasine (U) [Mass/Vol] <5 [facility] Comment on above: Performed By: #### N ICMU ####[facility] ([facility]) ([id number])500 [place] [address] Cotinine (U) [Mass/Vol] 74 ng/mL [facility] Comment on above: Performed By: #### N ICMU ####[facility] ([facility]) ([id number])500 [place] [address] Nicotine (U) [Mass/Vol] <15 [facility] Comment on above: Result Comment: INTE RPRETIVE INFORMATION: Nicotine and Metabolites, Urine, QuantitativeMethodology: Quantitative Liquid Chromatography-Tandem MassSpectrometryPositive cutoff:Nicotine 15 ng/mLCotinine 15 ng/oU7-OU-Ivxbaida 50 ng/mLAnabasine 5 ng/mLFor medical purposes only; [...] was developed and its performance characteristicsdetermined by [employer]. It has not been cleared orapproved by the [place] Food and Drug Administration. This test wasperformed in a CLIA certified laboratory and is intended forclinical purposes.Performed By: [facility] [facility] [place], [place] [address]Scmhcxbpho Director: Jasper Larry MD, PhDCLIA Number: [id number] Performed By: #### N ICMU ####[facility] ([facility]) ([id number])500 [place] [address] Thrri-4-Tlalekwrxtxen ne (U) [Mass/Vol] 1686 ng/mL Normal [facility] Comment on above: Performed By: #### N ICMU ####[facility] ([facility]) ([id number])500 [place] [address] No Panel Informationon 04-27 Interpretation and review of laboratory results Abnormal [facility] Vancomycinon 04-27-2024 Vancomycin [Mass/Vol] 20.9 ug/mL High 5.0 - 20.0 ug/mL [facility] Vancomycin [Mass/Vol] 20.9 ug/mL High 5.0-20.0 [facility] Comment on above: Order Comment: Pleas e [...] Performed By: #### 2 0578-1 ####JANETH Galo ([id number])[facility] ([facility])[address] [place] [address] Vancomycin [Mass/Vol] 23.1 ug/mL High 5.0 - 20.0 ug/mL [facility] Vancomycin [Mass/Vol] 23.1 ug/mL High 5.0-20.0 [facility] Comment on above: Order Comment: Vanco mycin [...] Performed By: #### 2 0578-1 ####JANETH Galo ([id number])[facility] ([facility])[address] [place], [place] [address] Vancomycin [Mass/Vol]on 04-17 Interpretation and review of laboratory results Abnormal [facility] Bacteria identifiedon 2024 Bacteria identified Cx Nom (Unsp spec) Abnormal [facility] Comment on above: Performed By: #### 6 463-4 ####JANETH Galo ([id number])[facility] ([facility])[address] [place] [address] Blood type and Indirect anti body screen panel (Bld)on 04-26-2024 ABO group Nom (Bld) [facility] Blood group antibody screen Ql Negative [facility] D Ag Ql (Bld) Positive [facility] CNPSridevi 04-26-2024 MALIN Telephone (FPWADS) ----- DEIDRA DE LA CRUZ ([id number]) 1970 F Date Time Provider Department 04/26/24 BIJAN ELMORE During your visit today, we recorded the following information about you: Carlo Miranda LPN 04/26/2024 3:45 PM Signed Received ed visit summary from [facility]. Placed in provider's inbox for review. Route to MA scanning Allergies As of Date: 04/26/2024 Noted Allergy Reaction PENICILLIN 06/05/2015 16 - Unknown Date Reviewed: 11/18/2023 Reviewed by: Carlo Miranda LPN - Fully Assessed Reason for Visit: Received Outside Medical Records [2627] Cmt: [facility] ED Prescriptions as of 04/26/2024 - promethazine [...] Status:Closed by CARLO MIRANDA on 04/26/24 Normal [facility] CT Lower leg - right W contr ast Fritz 04-26-2024 Radiology Study observation (narrative) [facility] Work Phone: CT TIBIA FIBULA RIGHT W IV C ONTRASTon 04-26-2024 CT TIBIA FIBULA RIGHT W IV CONTRAST Normal [facility] Comprehensive metabolic 2000 panelon 04-26-2024 Albumin BCP dye [Mass/Vol] 3.3 g/dL Low 3.4 - 5.0 g/dL [facility] ALP [Catalytic activity/Vol] 98 U/L 33 - 110 U/L [facility] ALT With P-5'-P [Catalytic activity/Vol] 9 U/L 7 - 45 U/L [facility] Anion gap [Moles/Vol] 13 mmol/L 10 - 2 0 mmol/L [facility] AST With P-5'-P [Catalytic activity/Vol] 18 U/L 9 - 39 U/L [facility] Bilirubin [Mass/Vol] 0.2 mg/dL 0.0 - 1 .2 mg/dL [facility] Calcium [Mass/Vol] 8.9 mg/dL 8.6 - 10. 6 mg/dL [facility] Chloride [Moles/Vol] 104 mmol/L 98 - 10 7 mmol/L [facility] CO2 [Moles/Vol] 25 mmol/L 21 - 32 mmol/L [facility] Creatinine [Mass/Vol] 0.7 mg/dL 0.50 - 1.05 mg/dL [facility] eGFR - PINF [facility] Glucose [Mass/Vol] 112 mg/dL High 74 - 99 mg/dL [facility] Interpretation and review of laboratory results Abnormal [facility] Potassium [Moles/Vol] 4 mmol/L 3.5 - 5.3 mmol/L [facility] Protein [Mass/Vol] 6.8 g/dL 6.4 - 8.2 g/dL [facility] Sodium [Moles/Vol] 138 mmol/L 136 - 145 mmol/L [facility] Urea nitrogen [Mass/Vol] 8 mg/dL 6 - 23 mg/dL [facility] Albumin BCP dye [Mass/Vol] 3.3 g/dL Low 3.4-5.0 [facility] Comment on above: Performed By: #### 2 4323-8 ####JANETH Galo ([id number])[facility] ([facility])[address] [place] [address] ALP [Catalytic activity/Vol] 98 U/L Normal 33-110 [facility] Comment on above: Performed By: #### 2 4323-8 ####JANETH Galo (85360)[facility] ([facility])[address] [place] [address] ALT With P-5'-P [Catalytic activity/Vol] 9 U/L Normal 7-45 [facility] Comment on above: Result Comment: Tomasa ents treated with Sulfasalazine may generate falsely decreased results for ALT. Performed By: #### 2 4323-8 ####JANETH Galo ([id number])[facility] ([facility])[address] [place] [address] Anion gap [Moles/Vol] 13 mmol/L Normal 10-20 [facility] Comment on above: Performed By: #### 2 4323-8 ####JANETH Galo ([id number])[facility] ([facility])[address] [place] [address] AST With P-5'-P [Catalytic activity/Vol] 18 U/L Normal 9-39 [facility] Comment on above: Performed By: #### 2 4323-8 ####JANETH Galo ([id number])[facility] ([facility])[address] [place] [address] Bilirubin [Mass/Vol] 0.2 mg/dL Normal 0.0-1.2 [facility] Comment on above: Performed By: #### 2 4323-8 ####JANETH Galo ([id number])[facility] ([facility])[address] [place] [address] Calcium [Mass/Vol] 8.9 mg/dL Normal 8.6-10.6 [facility] Comment on above: Performed By: #### 2 4323-8 ####JANETH Galo ([id number])[facility] ([facility])[address] [place] [address] Chloride [Moles/Vol] 104 mmol/L Normal 98-107 [facility] Comment on above: Performed By: #### 2 4323-8 ####JANETH Galo ([id number])[facility] ([facility])[address] [place] [address] CO2 [Moles/Vol] 25 mmol/L Normal 21-32 [facility] Comment on above: Performed By: #### 2 4323-8 ####JANETH Galo ([id number])[facility] ([facility])[address] [place] [address] Creatinine [Mass/Vol] 0.70 mg/dL Normal 0.50-1.05 [facility] Comment on above: Performed By: #### 2 4323-8 ####JANETH GRAFF L ([id number])[facility] ([facility])[address] [place] [address] GFR/1.73 sq M.predicted MDRD (S/P/Bld) [Vol rate/Area] mL/min/{1.73_m2} Normal >60 [facility] Comment on above: Result Comment: Calc ulations of estimated GFR are performed using the 2020 CKD-EPI Study Refit equation without the race variable for the IDMS-Traceable creatinine methods.https://jasn.asnjournals.org/content/early/ N.1740362774 Performed By: #### 2 4323-8 ####JANETH GRAFF L ([id number])[facility] ([facility])[address] [place] [address] Glucose [Mass/Vol] 112 mg/dL High 74-99 [facility] Comment on above: Performed By: #### 2 4323-8 ####JANETH GRAFF L ([id number])[facility] ([facility])[address] [place] [address] Potassium [Moles/Vol] 4.0 mmol/L Normal 3.5-5.3 [facility] Comment on above: Performed By: #### 2 4323-8 ####JANETH GRAFF L ([id number])[facility] ([facility])[address] [place] [address] Protein [Mass/Vol] 6.8 g/dL Normal 6.4-8.2 [facility] Comment on above: Performed By: #### 2 4323-8 ####JANETH GRAFF L ([id number])[facility] ([facility])[address] [place] [address] Sodium [Moles/Vol] 138 mmol/L Normal 136-145 [facility] Comment on above: Performed By: #### 2 4323-8 ####JANETH Galo ([id number])[facility] ([facility])[address] [place] [address] Urea nitrogen [Mass/Vol] 8 mg/dL Normal 6-23 [facility] Comment on above: Performed By: #### 2 4323-8 ####JANETH Galo ([id number])[facility] ([facility])[address] [place] [address] ESR Westergren method (Bld) [Velocity]on 04-26-2024 ESR (Bld) [Velocity] 70 mm/h High 0 - 30 mm/h [facility] Interpretation and review of laboratory results Abnormal [facility] Gram Stainon 04-26-2024 GS Gram Stain 3+ White Blood Cells Rare Gram negative rods Rare Gram positive cocci No Epithelial cells Normal [facility] Comment on above: Performed By: #### M 100.2000, M100.3000 #### [facility] [address] [place], [place], [address] No Panel Informationon 04-26 Extra Tube Hold for add-ons. [facility] PST Topon 04-26-2024 Extra Tube Hold for add-ons. [facility] XR Chest Single viewon 04-26 U[facility] MMODAL UH ODAL [facility] Work Phone: [facility] Work Phone: XR Femur - right 2 Viewson 0 04-26-2024 UH MMODAL UH MMODAL [facility] Work Phone: XR Femur - right 2 ViewsOrde red By: Lupis Tabor on 04-26-2024 [facility] Work Phone: Absolute neutrophil countOrd ered By: Pan Abarca on 04-25-2024 Neutrophils (Bld) [#/Vol] 8.8 10*3/uL High 2.0-7.7 [facility] Anion gap in Serum or Plasma Ordered By: Pan Abarca on 04-25-2024 Anion gap [Moles/Vol] 11 mmol/L - [facility] BUN/creatinine ratioOrdered By: Pan Abarca on 04-25-2024 Urea nitrogen/Creatinine [Mass ratio] 11.9 mg/mg - [facility] Basic Metabolic Profile (BMP )on 04-25-2024 BUN/CRE 11.9 RATIO Normal - [facility] Comment on above: Performed By: #### L 500.2500, L100.0100 #### [facility] [address] [place], [address] Calcium [Mass/Vol] 9.0 mg/dL Normal 7.6-11.0 [facility] Comment on above: Performed By: #### L 500.2500, L100.0100 #### [facility] [address] [place], [address] Chloride [Moles/Vol] 102 mmol/L Normal 98-108 [facility] Comment on above: Performed By: #### L 500.2500, L100.0100 #### [facility] [address] [place], [address] CO2 [Moles/Vol] 25.7 mmol/L Normal 21.0-32.0 [facility] Comment on above: Performed By: #### L 500.2500, L100.0100 #### [facility] [address] [place], [address] Creatinine [Mass/Vol] 0.78 mg/dL Normal 0.70-1.20 [facility] Comment on above: Performed By: #### L 500.2500, L100.0100 #### [facility] [address] [place], [address] ECRCL 99.51 ml/min Normal 50-250 [facility] Comment on above: Performed By: #### L 500.2500, L100.0100 #### [facility] [address] [place], [address] GAP 11 Normal 5-15 [facility] Comment on above: Performed By: #### L 500.2500, L100.0100 #### [facility] [address] [place], [address] GFR/1.73 sq M.predicted among non-blacks MDRD (S/P/Bld) [Vol rate/Area] 92 mL/min/{1.73_m2} Normal >60 [facility] Comment on above: Result Comment: mL/m in/1.73m2 CKD-EPI Creatinine Equation (2020) Performed By: #### L 500.2500, L100.0100 #### [facility] [address] [place], [address] Glucose [Mass/Vol] 127 mg/dL High 70-99 [facility] Comment on above: Performed By: #### L 500.2500, L100.0100 #### [facility] [address] [place], [address] Potassium [Moles/Vol] 4.0 mmol/L Normal 3.3-5.1 [facility] Comment on above: Performed By: #### L 500.2500, L100.0100 #### [facility] [address] [place], [address] Sodium [Moles/Vol] 138 mmol/L Normal 133-145 [facility] Comment on above: Performed By: #### L 500.2500, L100.0100 #### [facility] [address] [place], [address] Urea nitrogen [Mass/Vol] 9 mg/dL Normal 4-19 [facility] Comment on above: Performed By: #### L 500.2500, L100.0100 #### [facility] [place] [address] [place], [address] Basic metabolic 2000 panelon 04-25-2024 Anion gap [Moles/Vol] 13 mmol/L 10 - 2 0 mmol/L [facility] Calcium [Mass/Vol] 9.2 mg/dL 8.6 - 10. 6 mg/dL [facility] Chloride [Moles/Vol] 102 mmol/L 98 - 10 7 mmol/L [facility] CO2 [Moles/Vol] 26 mmol/L 21 - 32 mmol/L [facility] Creatinine [Mass/Vol] 0.7 mg/dL 0.50 - 1.05 mg/dL [facility] eGFR - PINF [facility] Glucose [Mass/Vol] 98 mg/dL 74 - 99 mg/dL [facility] Interpretation and review of laboratory results Normal [facility] Potassium [Moles/Vol] 4 mmol/L 3.5 - 5.3 mmol/L [facility] Sodium [Moles/Vol] 137 mmol/L 136 - 145 mmol/L [facility] Urea nitrogen [Mass/Vol] 8 mg/dL 6 - 23 mg/dL [facility] Anion gap [Moles/Vol] 13 mmol/L Normal 10-20 [facility] Comment on above: Performed By: #### 2 4321-2 ####JANETH Galo ([id number])[facility] ([facility])[address] [place] [address] Calcium [Mass/Vol] 9.2 mg/dL Normal 8.6-10.6 [facility] Comment on above: Performed By: #### 2 4321-2 ####JANETH Galo ([id number])[facility] ([facility])[address] [place] [address] Chloride [Moles/Vol] 102 mmol/L Normal 98-107 [facility] Comment on above: Performed By: #### 2 4321-2 ####JANETH Galo ([id number])[facility] ([facility])[address] [place] [address] CO2 [Moles/Vol] 26 mmol/L Normal 21-32 [facility] Comment on above: Performed By: #### 2 4321-2 ####JANETH Galo ([id number])[facility] ([facility])[address] [place] [address] Creatinine [Mass/Vol] 0.70 mg/dL Normal 0.50-1.05 [facility] Comment on above: Performed By: #### 2 4321-2 ####JANETH Galo ([id number])[facility] ([facility])[address] [place] [address] GFR/1.73 sq M.predicted MDRD (S/P/Bld) [Vol rate/Area] mL/min/{1.73_m2} Normal >60 [facility] Comment on above: Result Comment: Calc ulations of estimated GFR are performed using the 2020 CKD-EPI Study Refit equation without the race variable for the IDMS-Traceable creatinine methods.https://jasn.asnjournals.org/content/early/ N.9489835782 Performed By: #### 2 4321-2 ####JANETH Galo ([id number])[facility] ([facility])[address] [place] [address] Glucose [Mass/Vol] 98 mg/dL Normal 74-99 [facility] Comment on above: Performed By: #### 2 4321-2 ####JANETH Galo ([id number])[facility] ([facility])[address] [place] [address] Potassium [Moles/Vol] 4.0 mmol/L Normal 3.5-5.3 [facility] Comment on above: Performed By: #### 2 4321-2 ####JANETH Galo ([id number])[facility] ([facility])[address] [place] [address] Sodium [Moles/Vol] 137 mmol/L Normal 136-145 [facility] Comment on above: Performed By: #### 2 4321-2 ####JANETH Galo ([id number])[facility] ([facility])[address] [place] [address] Urea nitrogen [Mass/Vol] 8 mg/dL Normal 6-23 [facility] Comment on above: Performed By: #### 2 4321-2 ####JANETH Galo ([id number])[facility] ([facility])[address] [place] [address] Basophil percentageOrdered B y: Pan Abarca on 04-25-2024 Basophils/100 WBC (Bld) 0.6 % 0-1 [facility] Blood type and Indirect anti body screen panel (Bld)on 04-25-2024 ABO group Nom (Bld) A Normal [facility] Comment on above: Performed By: #### 3 4532-2 ####JANETH Galo ([id number])[facility] ([facility])[address] [place] [address] Blood group antibody screen Ql Negative [facility] Comment on above: Performed By: #### 3 4532-2 ####JANETH Galo ([id number])[facility] ([facility])[address] [place] [address] D Ag Ql (Bld) Positive [facility] Comment on above: Performed By: #### 3 4532-2 ####JANETH Galo ([id number])[facility] ([facility])[address] [place] [address] C reactive proteinon 025 CRP [Mass/Vol] 10.02 mg/dL High <1.00 [facility] Comment on above: Performed By: #### 1 988-5 ####JANETH Galo (06272)[facility] ([facility])[address] [place] [address] CRP [Mass/Vol] 10.04 mg/dL High <1.00 [facility] Comment on above: Performed By: #### 1 988-5 ####JANETH Galo (77981)[facility] ([facility])[id number] [place] [address] C-reactive proteinon 025 CRP [Mass/Vol] 10.02 mg/dL High NINF - 1.00 mg/dL [facility] CRP [Mass/Vol] 10.04 mg/dL High NINF - 1.00 mg/dL [facility] CBC W Auto Differential pane l (Bld)on 04-25-2024 Basophils (Bld) [#/Vol] 0.09 10*3/uL [facility] Basophils/100 WBC (Bld) 0.7 % 0.0 - 2.0 % [facility] Eosinophils (Bld) [#/Vol] 0.32 10*3/uL [facility] Eosinophils/100 WBC (Bld) 2.5 % 0.0 - 6.0 % [facility] Erythrocyte distribution width (RBC) [Ratio] 17.5 % High 11.5 - 14.5 % [facility] Hematocrit (Bld) [Volume fraction] 31.2 % Low 36.0 - 46.0 % [facility] Hemoglobin (Bld) [Mass/Vol] 9.3 g/dL Low 12.0 - 16.0 g/dL [facility] Immature granulocytes (Bld) [#/Vol] 0.07 10*3/uL [facility] Immature granulocytes/100 WBC (Bld) 0.6 % 0.0 - 0.9 % [facility] Interpretation and review of laboratory results Abnormal [facility] Lymphocytes (Bld) [#/Vol] 3.75 10*3/uL [facility] Lymphocytes/100 WBC (Bld) 29.6 % 13.0 - 44.0 % [facility] MCH (RBC) [Entitic mass] 24 pg Low 26.0 - 34.0 pg [facility] MCHC (RBC) [Mass/Vol] 29.8 g/dL Low 32.0 - 36.0 g/dL [facility] MCV (RBC) [Entitic vol] 80 fL 80 - 100 fL [facility] Monocytes (Bld) [#/Vol] 1.16 10*3/uL [facility] Monocytes/100 WBC (Bld) 9.1 % 2.0 - 10.0 % [facility] Neutrophils (Bld) [#/Vol] 7.3 10*3/uL [facility] Neutrophils/100 WBC (Bld) 57.5 % 40.0 - 80.0 % [facility] Nucleated RBC/100 WBC (Bld) [Ratio] 0.5 % [facility] Platelets (Bld) [#/Vol] 768 10*3/uL High [facility] RBC (Bld) [#/Vol] 3.88 10*6/uL Low [facility] WBC (Bld) [#/Vol] 12.7 10*3/uL High [facility] Basophils (Bld) [#/Vol] 0.09 x10*3/uL Normal 0.00-0.10 [facility] Comment on above: Performed By: #### 5 7021-8 ####JANETH Galo ([id number])[facility] ([facility])[address] [place] [address] Basophils/100 WBC (Bld) 0.7 % Normal 0.0-2.0 [facility] Comment on above: Performed By: #### 5 7021-8 ####JANETH Galo ([id number])[facility] ([facility])[address] [place] [address] Eosinophils (Bld) [#/Vol] 0.32 x10*3/uL Normal 0.00-0.70 [facility] Comment on above: Performed By: #### 5 7021-8 ####JANETH Galo ([id number])[facility] ([facility])[address] [place] [address] Eosinophils/100 WBC (Bld) 2.5 % Normal 0.0-6.0 [facility] Comment on above: Performed By: #### 5 7021-8 ####JANETH Galo ([id number])[facility] ([facility])[address] [place] [address] Erythrocyte distribution width (RBC) [Ratio] 17.5 % High 11.5-14.5 [facility] Comment on above: Performed By: #### 5 7021-8 ####JANETH Galo ([id number])[facility] ([facility])[address] [place] [address] Hematocrit (Bld) [Volume fraction] 31.2 % Low 36.0-46.0 [facility] Comment on above: Performed By: #### 5 7021-8 ####JANETH Galo ([id number])[facility] ([facility])[address] [place] [address] Hemoglobin (Bld) [Mass/Vol] 9.3 g/dL Low 12.0-16.0 [facility] Comment on above: Performed By: #### 5 7021-8 ####JANETH Galo ([id number])[facility] ([facility])[address] [place] [address] Immature granulocytes (Bld) [#/Vol] 0.07 x10*3/uL Normal 0.00-0.70 [facility] Comment on above: Performed By: #### 5 7021-8 ####JANETH Galo ([id number])[facility] ([facility])[id number] [place] [address] Immature granulocytes/100 WBC (Bld) 0.6 % Normal 0.0-0.9 [facility] Comment on above: Result Comment: Catrachita ture Granulocyte Count (IG) includes promyelocytes, myelocytes and metamyelocytes but does not include bands. Percent differential counts (%) should be interpreted in the context of the absolute cell counts (cells/UL). Performed By: #### 5 7021-8 ####JANETH Galo ([id number])[facility] ([facility])[address] [place] [address] Lymphocytes (Bld) [#/Vol] 3.75 x10*3/uL Normal 1.20-4.80 [facility] Comment on above: Performed By: #### 5 7021-8 ####JANETH Galo ([id number])[facility] ([facility])[id number] [place] [address] Lymphocytes/100 WBC (Bld) 29.6 % Normal 13.0-44.0 [facility] Comment on above: Performed By: #### 5 7021-8 ####JANETH Galo ([id number])[facility] ([facility])[address] [place] [address] MCH (RBC) [Entitic mass] 24.0 pg Low 26.0-34.0 [facility] Comment on above: Performed By: #### 5 7021-8 ####JANETH Galo ([id number])[facility] ([facility])[address] [place] [address] MCHC (RBC) [Mass/Vol] 29.8 g/dL Low 32.0-36.0 [facility] Comment on above: Performed By: #### 5 7021-8 ####JANETH Galo ([id number])[facility] ([facility])[address] [place] [address] MCV (RBC) [Entitic vol] 80 fL Normal 80-100 [facility] Comment on above: Performed By: #### 5 7021-8 ####JANETH Galo ([id number])[facility] ([facility])[address] [place] [address] Monocytes (Bld) [#/Vol] 1.16 x10*3/uL High 0.10-1.00 [facility] Comment on above: Performed By: #### 5 7021-8 ####JANETH Galo ([id number])[facility] ([facility])[address] [place] [address] Monocytes/100 WBC (Bld) 9.1 % Normal 2.0-10.0 [facility] Comment on above: Performed By: #### 5 7021-8 ####JANETH Galo ([id number])[facility] ([facility])[address] [place] [address] Neutrophils (Bld) [#/Vol] 7.30 x10*3/uL Normal 1.20-7.70 [facility] Comment on above: Result Comment: Perc ent differential counts (%) should be interpreted in the context of the absolute cell counts (cells/uL). Performed By: #### 5 7021-8 ####JANETH Galo ([id number])[facility] ([facility])[address] [place] [address] Neutrophils/100 WBC (Bld) 57.5 % Normal 40.0-80.0 [facility] Comment on above: Performed By: #### 5 7021-8 ####JANETH Galo ([id number])[facility] ([facility])[address] [place] [address] Nucleated RBC/100 WBC (Bld) [Ratio] 0.5 /100 WBCs High 0.0-0.0 [facility] Comment on above: Performed By: #### 5 7021-8 ####JANETH Galo ([id number])[facility] ([facility])[address] [place] [address] Platelets (Bld) [#/Vol] 768 x10*3/uL High 150-450 [facility] Comment on above: Performed By: #### 5 7021-8 ####JANETH Galo ([id number])[facility] ([facility])[address] [place] [address] RBC (Bld) [#/Vol] 3.88 x10*6/uL Low 4.00-5.20 [facility] Comment on above: Performed By: #### 5 7021-8 ####JANETH Galo ([id number])[facility] ([facility])[address] [place] [address] WBC (Bld) [#/Vol] 12.7 x10*3/uL High 4.4-11.3 [facility] Comment on above: Performed By: #### 5 7021-8 ####JANETH Galo ([id number])[facility] ([facility])[address] [place], [place] [address] CRP [Mass/Vol]on 04-25-2024 Interpretation and review of laboratory results Abnormal [facility] Interpretation and review of laboratory results Abnormal [facility] Carbon dioxide, total [Moles /volume] in Central venous bloodOrdered By: Pan Abarca on 04-25-2024 CO2 [Moles/Vol] 25.7 mmol/L 21.0-32.0 [facility] Chloride assayOrdered By: Claire Abarca on 04-25-2024 Chloride [Moles/Vol] 102 mmol/L 98-108 [facility] ESR Westergren method (Bld) [Velocity]on 04-25-2024 ESR (Bld) [Velocity] 96 mm/h High 0 - 30 mm/h [facility] Interpretation and review of laboratory results Abnormal [facility] ESR (Bld) [Velocity] 70 mm/h High 0-30 [facility] Comment on above: Performed By: #### 4 537-7 ####JANETH Galo ([id number])[facility] ([facility])[address] [place] [address] ESR (Bld) [Velocity] 96 mm/h High 0-30 [facility] Comment on above: Performed By: #### 4 537-7 ####JANETH Galo ([id number])[facility] ([facility])[address] [place] [address] Emergency Department Summary on 04-25-2024 Emergency Department Summary [facility] Medical Records Department [address] [place] [address] Emergency Department Summary 04/25/24 MR#: [id number] Acct: [id number] Name: DEIDRA DE LA CRUZ Rep #: [id number] : 1970 54 From: Pan Abarca MD PCP: Dr. Francisco Elmore MD Status:REG ER Location: ED HPI History of Present Illness Chief Complaint: Wound Informant: patient and EMS Narrative Narrative: 54-year-old female had plastic surgery at [facility] 2 or 3 weeks ago with a [...] states her plastic surgeon was Dr. Mac. [facility] Home Medications ???Medication ???Instructions ???Recorded ???Last Taken [...] Pressure Veda (more content not included)... Normal [facility] Eosinophil percentageOrdered By: Pan Abarca on 04-25-2024 Eosinophils/100 WBC (Bld) 2.3 % 0-5 [facility] Erythrocyte distribution wid th ratioOrdered By: Pan Abarca on 04-25-2024 Erythrocyte distribution width (RBC) [Ratio] 17.7 % High 11.6-14.6 [facility] Erythrocyte distribution wid th standard deviationOrdered By: Pan Abarca on 04-25-2024 Erythrocyte distribution width (RBC) [Entitic vol] 52.3 fL High 35.1-43.9 [facility] Estimation of creatinine isaac aranceOrdered By: Pan Abarca on 04-25-2024 Estimated Creatinine Clearance Calc 99.51 ml/min 50-250 [facility] Femur Min 2 Viewson 04-26-19 Femur Min 2 Views [facility] Services [address] [place], [place] [address] Femur Min 2 Views MR#: [id number] Acct: [id number] Name: DEIDRA DE LA CRUZ Rep #: [id number] : 1970 F 54 From: Nubia Bueno nd, MD PCP: Dr. Francisco Elmore MD Status: REG ER Study: Femur Min 2 Views Date of Exam: 04/25/24 Exam# [id number] Ordering Dr: Pan Abarca MD PROCEDURE: FEMUR [...] No obvious soft tissue lesion. Reading Location: [facility] CC: Dr. Pan Abarca MD; Dr. Francisco Elmore MD Tree Chipper: Signed Normal [facility] Femur Min 2 Views [facility] [address] [place], [place] [address] Femur Min 2 Views MR#: [id number] Acct: [id number] Name: DEIDRA DE LA CRUZ Rep #: [id number] : 1970 F 54 From: Nubia Bueno nd, MD PCP: Dr. Francisco Elmore MD Status: REG ER Study: Femur Min 2 Views Date of Exam: 04/25/24 Exam# [id number] Ordering Dr: Pan Abarca MD PROCEDURE: FEMUR [...] abscess. Surgical consultation is recommended. Reading Location: [facility] CC: Dr. Pan Abarca MD; Dr. Francisco Elmore MD Tree Chipper: Signed Normal [facility] GFR/1.73 sq M.predicted duarte g non-blacks MDRD (S/P/Bld) [Vol rate/Area]Ordered By: Pan Abarca on 04-25-2024 Estimated GFR (MDRD) Non-Af Amer 92 >60 [facility] Comment on above: mL/min/1.73m2 CKD-EP I Creatinine Equation (2020) Hematocrit Auto (Bld) [Volum e fraction]Ordered By: Pan Abarca on 04-25-2024 Hematocrit (Bld) [Volume fraction] 31.4 % Low 37-47 [facility] Hemoglobin measurementOrdere d By: Pan Abarca on 04-25-2024 Hemoglobin (Bld) [Mass/Vol] 9.3 g/dL Low 12.0-15.0 [facility] Immature granulocytes/100 WB C Auto (Bld)Ordered By: Pan Abarca on 04-25-2024 Immature granulocytes/100 WBC (Bld) 0.700 % 0.0-0.9 [facility] Comment on above: IG% - Immature Granu locytes (promyelocytes, myelocytes and metamyelocytes) > 1% indicates that a LEFT SHIFT is Present. Lymphocytes Auto (Unsp spec) [#/Vol]Ordered By: Pan Abarca on 04-25-2024 Lymphocytes (Bld) [#/Vol] 4.10 10*3/uL 0.83-4.51 [facility] Lymphocytes/100 WBC Auto (Un sp spec)Ordered By: Pan Abarca on 04-25-2024 Lymphocytes/100 WBC (Bld) 27.9 % 19-41 [facility] MCV (mean corpuscular volume ) determinationOrdered By: Pan Abarca on 04-25-2024 MCV (RBC) [Entitic vol] 82.0 fL 81-99 [facility] Manual differential comment David (Bld) [Interp]Ordered By: Pan Abarca on 04-25-2024 Differential Comment SCANNED [facility] Comment on above: THROMBOCYTOSIS NOTED Mean corpuscular hemoglobin (MCH) determinationOrdered By: Pan Abarca on 04-25-2024 MCH (RBC) [Entitic mass] 24.3 pg Low 27.0-32.0 [facility] Mean corpuscular hemoglobin concentration (MCHC) determinationOrdered By: Pan Abarca on 04-25-2024 MCHC (RBC) [Mass/Vol] 29.6 g/dL Low 32-36 [facility] Mean platelet volume determi nationOrdered By: Pan Abarca on 04-25-2024 Platelet mean volume (Bld) [Entitic vol] 10.0 fL 6.2-12.0 [facility] Monocyte percentageOrdered B y: Pan Abarca on 04-25-2024 Monocytes/100 WBC (Bld) 8.9 % 0-10 [facility] Neutrophil percentageOrdered By: Pan Abarca on 04-25-2024 Neutrophils/100 WBC (Bld) 59.6 % 47-70 [facility] No Panel Informationon 04-25 [facility] Nucleated red blood cell per centageOrdered By: Pan Abarca on 04-25-2024 Nucleated RBC/100 WBC (Bld) [Ratio] 0.4 % 0-5 [facility] PT and aPTT panel Coag (PPP) on 04-25-2024 aPTT Coag (PPP) [Time] 40 s High [facility] INR Coag (PPP) [Relative time] 1.2 {INR} High 0.9 - 1.1 [facility] Interpretation and review of laboratory results Abnormal [facility] PT Coag (PPP) [Time] 13.5 s High [facility] aPTT Coag (PPP) [Time] 40 s High 26-36 [facility] Comment on above: Order Comment: The A PTT is no longer used for monitoring Unfractionated Heparin Therapy. For monitoring Heparin Therapy, use the Heparin Assay. Performed By: #### 3 4529-8 ####JANETH Galo ([id number])[facility] ([facility])[address] [place] [address] INR Coag (PPP) [Relative time] 1.2 High 0.9-1.1 [facility] Comment on above: Order Comment: The A PTT is no longer used for monitoring Unfractionated Heparin Therapy. For monitoring Heparin Therapy, use the Heparin Assay. Performed By: #### 3 4529-8 ####JANETH Galo ([id number])[facility] ([facility])[address] [place] [address] PT Coag (PPP) [Time] 13.5 s High 9.8-12.4 [facility] Comment on above: Order Comment: The A PTT is no longer used for monitoring Unfractionated Heparin Therapy. For monitoring Heparin Therapy, use the Heparin Assay. Performed By: #### 3 4529-8 ####JANETH Galo ([id number])[facility] ([facility])[address] [place] [address] Pathologist review David (Unsp spec) [Interp]Ordered By: Pan Abarca on 04-25-2024 Differential Pathologist's Review May [facility] Platelet countOrdered By: Claire Abarca on 04-25-2024 Platelets (Bld) [#/Vol] 759 10*3/uL High 150-450 [facility] Comment on above: CRITICAL VALUE PARADA D TO EMBER TOLENTINO (ER)04/25/24 9337 Uri Martínez.RESULTS READ BACK BY SAME. Potassium (Unsp spec) [Mass/ Vol]Ordered By: Pan Abarca on 04-25-2024 Potassium [Moles/Vol] 4.0 mmol/L 3.3-5.1 [facility] RBC Auto (Bld) [#/Vol]Ordere d By: Pan Abarca on 04-25-2024 RBC (Bld) [#/Vol] 3.83 10*6/uL Low 4.2-5.4 [facility] Serum creatinine measurement (mass/volume)Ordered By: Pan Abarca on 04-25-2024 Creatinine [Mass/Vol] 0.78 mg/dL 0.70-1.20 [facility] Serum glucose measurement (m ass/volume)Ordered By: Pan Abarca on 04-25-2024 Glucose [Mass/Vol] 127 mg/dL High 70-99 [facility] Serum or plasma calcium samuel urement (mass/volume)Ordered By: Pan Abarca on 04-25-2024 Calcium [Mass/Vol] 9.0 mg/dL 7.6-11.0 [facility] Serum or plasma urea nitroge n measurement (mass/volume)Ordered By: Pan Abarca on 04-25-2024 Urea nitrogen [Mass/Vol] 9 mg/dL 4-19 [facility] Sodium levelOrdered By: Adryan Abarca on 04-25-2024 Sodium [Moles/Vol] 138 mmol/L 133-145 [facility] Tibia Fibula 2 Viewson 04-25 Tibia Fibula 2 Views [facility] Services [address] [place], [place] [address] Tibia Fibula 2 Views MR#: [id number] Acct: [id number] Name: DEIDRA DE LA CRUZ Rep #: [id number] : 1970 F 54 From: Nubia Bueno nd, MD PCP: Dr. Francisco Elmore MD Status: [facility] ER Study: Tibia Fibula 2 Views Date of Exam: 04/25/24 Exam# [id number] Ordering Dr: Pan Abarca MD PROCEDURE: TIBIA [...] developing infection/abscess. Surgical consultation recommended. Reading Location: [facility] CC: Dr. Pan Abarca MD; Dr. Francisco Elmore MD Tree Chipper: Signed Normal [facility] White blood cell (WBC) count Ordered By: Pan Abarca on 04-25-2024 WBC (Bld) [#/Vol] 14.7 10*3/uL High 4.4-11.0 [facility] XR CHEST 1 VIEWon 04-25-2024 XR CHEST 1 VIEW Normal [facility] XR Chest Single viewon 04-25 Radiology Study observation (narrative) [facility] Work Phone: XR FEMUR RIGHT 2+ VIEWSon XR FEMUR RIGHT 2+ VIEWS Normal [facility] XR Femur - right 2 Viewson 0 04-25-2024 Radiology Study observation (narrative) [facility] Work Phone: Basic metabolic 2000 panelon 04-01-2024 Anion gap [Moles/Vol] 9 mmol/L Low 10 - 2 0 mmol/L [facility] Calcium [Mass/Vol] 8.8 mg/dL 8.6 - 10. 6 mg/dL [facility] Chloride [Moles/Vol] 99 mmol/L 98 - 10 7 mmol/L [facility] CO2 [Moles/Vol] 34 mmol/L High 21 - 32 mmol/L [facility] Creatinine [Mass/Vol] 0.59 mg/dL 0.50 - 1.05 mg/dL [facility] eGFR - PINF [facility] Comment on above: Calculations of bill mated GFR are performed using the 2020 CKD-EPI Study Refit equation without the race variable for the IDMS-Traceable creatinine methods. https://jasn.asnjournals.org/content/early/ASN.856374 9661 Glucose [Mass/Vol] 137 mg/dL High 74 - 99 mg/dL [facility] Interpretation and review of laboratory results Abnormal [facility] Potassium [Moles/Vol] 4.9 mmol/L 3.5 - 5.3 mmol/L [facility] Sodium [Moles/Vol] 137 mmol/L 136 - 145 mmol/L [facility] Urea nitrogen [Mass/Vol] 14 mg/dL 6 - 23 mg/dL [facility] Anion gap [Moles/Vol] 9 mmol/L Low 10-20 [facility] Comment on above: Performed By: #### 2 4321-2 ####JANETH Galo ([id number])[facility] ([facility])[address] [place] [address] Calcium [Mass/Vol] 8.8 mg/dL Normal 8.6-10.6 [facility] Comment on above: Performed By: #### 2 4321-2 ####JANETH Galo ([id number])[facility] ([facility])[address] [place] [address] Chloride [Moles/Vol] 99 mmol/L Normal 98-107 [facility] Comment on above: Performed By: #### 2 4321-2 ####JANETH Galo ([id number])[facility] ([facility])[address] [place] [address] CO2 [Moles/Vol] 34 mmol/L High 21-32 [facility] Comment on above: Performed By: #### 2 4321-2 ####JANETH Galo ([id number])[facility] ([facility])[address] [place] [address] Creatinine [Mass/Vol] 0.59 mg/dL Normal 0.50-1.05 [facility] Comment on above: Performed By: #### 2 4321-2 ####JANETH Galo ([id number])[facility] ([facility])[address] [place] [address] GFR/1.73 sq M.predicted MDRD (S/P/Bld) [Vol rate/Area] mL/min/{1.73_m2} Normal >60 [facility] Comment on above: Result Comment: Calc ulations of estimated GFR are performed using the 2020 CKD-EPI Study Refit equation without the race variable for the IDMS-Traceable creatinine methods.https://jasn.asnjournals.org/content/early/ N.1640488839 Performed By: #### 2 4321-2 ####JANETH Galo ([id number])[facility] ([facility])[address] [place] [address] Glucose [Mass/Vol] 137 mg/dL High 74-99 [facility] Comment on above: Performed By: #### 2 4321-2 ####JANETH Galo ([id number])[facility] ([facility])[address] [place] [address] Potassium [Moles/Vol] 4.9 mmol/L Normal 3.5-5.3 [facility] Comment on above: Performed By: #### 2 4321-2 ####JANETH GRAFF L ([id number])[facility] ([facility])[address] [place] [address] Sodium [Moles/Vol] 137 mmol/L Normal 136-145 [facility] Comment on above: Performed By: #### 2 4321-2 ####JANETH Galo ([id number])[facility] ([facility])[address] [place] [address] Urea nitrogen [Mass/Vol] 14 mg/dL Normal 6-23 [facility] Comment on above: Performed By: #### 2 4321-2 ####JANETH Galo ([id number])[facility] ([facility])[address] [place] [address] CBC panel Auto (Bld)on 04-01 Erythrocyte distribution width (RBC) [Ratio] 17.4 % High 11.5 - 14.5 % [facility] Hematocrit (Bld) [Volume fraction] 26.5 % Low 36.0 - 46.0 % [facility] Hemoglobin (Bld) [Mass/Vol] 7.6 g/dL Low 12.0 - 16.0 g/dL [facility] Interpretation and review of laboratory results Abnormal [facility] MCH (RBC) [Entitic mass] 26.3 pg 26.0 - 34.0 pg [facility] MCHC (RBC) [Mass/Vol] 28.7 g/dL Low 32.0 - 36.0 g/dL [facility] MCV (RBC) [Entitic vol] 92 fL 80 - 100 fL [facility] Nucleated RBC/100 WBC (Bld) [Ratio] 0.9 % High [facility] Platelets (Bld) [#/Vol] 778 10*3/uL High [facility] RBC (Bld) [#/Vol] 2.89 10*6/uL Low [facility] WBC (Bld) [#/Vol] 12 10*3/uL High [facility] Erythrocyte distribution width (RBC) [Ratio] 17.4 % High 11.5-14.5 [facility] Comment on above: Performed By: #### 5 8410-2 ####JANETH Galo ([id number])[facility] ([facility])[address] [place] [address] Hematocrit (Bld) [Volume fraction] 26.5 % Low 36.0-46.0 [facility] Comment on above: Performed By: #### 5 8410-2 ####JANETH Galo ([id number])[facility] ([facility])[address] [place] [address] Hemoglobin (Bld) [Mass/Vol] 7.6 g/dL Low 12.0-16.0 [facility] Comment on above: Performed By: #### 5 8410-2 ####JANETH Galo ([id number])[facility] ([facility])[address] [place] [address] MCH (RBC) [Entitic mass] 26.3 pg Normal 26.0-34.0 [facility] Comment on above: Performed By: #### 5 8410-2 ####JANETH Galo ([id number])[facility] ([facility])[address] [place] [address] MCHC (RBC) [Mass/Vol] 28.7 g/dL Low 32.0-36.0 [facility] Comment on above: Performed By: #### 5 8410-2 ####JANETH Galo ([id number])[facility] ([facility])[address] [place] [address] MCV (RBC) [Entitic vol] 92 fL Normal 80-100 [facility] Comment on above: Performed By: #### 5 8410-2 ####JANETH Glao ([id number])[facility] ([facility])[address] [place] [address] Nucleated RBC/100 WBC (Bld) [Ratio] 0.9 /100 WBCs High 0.0-0.0 [facility] [facility] Comment on above: Performed By: #### 5 8410-2 ####JANEHT Galo ([id number])[facility] ([facility])[address] [place] [address] Platelets (Bld) [#/Vol] 778 x10*3/uL High 150-450 [facility] Comment on above: Performed By: #### 5 8410-2 ####JANETH Galo ([id number])[facility] ([facility])[address] [place] [address] RBC (Bld) [#/Vol] 2.89 x10*6/uL Low 4.00-5.20 [facility] Comment on above: Performed By: #### 5 8410-2 ####JANETH Galo ([id number])[facility] ([facility])[address]56 [place] [address] WBC (Bld) [#/Vol] 12.0 x10*3/uL High 4.4-11.3 [facility] Comment on above: Performed By: #### 5 8410-2 ####JANETH Galo ([id number])[facility] ([facility])[address] [place] [address] Basic metabolic 2000 panelon 03-31-2024 Anion gap [Moles/Vol] 10 mmol/L 10 - 2 0 mmol/L [facility] Calcium [Mass/Vol] 8.8 mg/dL 8.6 - 10. 6 mg/dL [facility] Chloride [Moles/Vol] 100 mmol/L 98 - 10 7 mmol/L [facility] CO2 [Moles/Vol] 32 mmol/L 21 - 32 mmol/L [facility] Creatinine [Mass/Vol] 0.55 mg/dL 0.50 - 1.05 mg/dL [facility] eGFR - PINF [facility] Comment on above: Calculations of bill mated GFR are performed using the 2020 CKD-EPI Study Refit equation without the race variable for the IDMS-Traceable creatinine methods. https://jasn.asnjournals.org/content//ASN.380456 7816 Glucose [Mass/Vol] 140 mg/dL High 74 - 99 mg/dL [facility] Interpretation and review of laboratory results Abnormal [facility] Potassium [Moles/Vol] 4.9 mmol/L 3.5 - 5.3 mmol/L [facility] Sodium [Moles/Vol] 137 mmol/L 136 - 145 mmol/L [facility] Urea nitrogen [Mass/Vol] 12 mg/dL 6 - 23 mg/dL [facility] Anion gap [Moles/Vol] 10 mmol/L Normal 10-20 [facility] Comment on above: Performed By: #### 2 4321-2 ####JANETH MCDONALDTZER L ([id number])[facility] ([facility])[address]096 [place] [address] Calcium [Mass/Vol] 8.8 mg/dL Normal 8.6-10.6 [facility] Comment on above: Performed By: #### 2 4321-2 ####JANETH CONNORMOTZER L ([id number])[facility] ([facility])[address]18 [place] [address] Chloride [Moles/Vol] 100 mmol/L Normal 98-107 [facility] Comment on above: Performed By: #### 2 4321-2 ####JANETH SCHMOTZER L ([id number])[facility] ([facility])[address]249 [place] [address] CO2 [Moles/Vol] 32 mmol/L Normal 21-32 [facility] Comment on above: Performed By: #### 2 4321-2 ####JANETH CONNORMOTZER L ([id number])[facility] ([facility])[address]994 [place] [address] Creatinine [Mass/Vol] 0.55 mg/dL Normal 0.50-1.05 [facility] Comment on above: Performed By: #### 2 4321-2 ####JANETH Galo ([id number])[facility] ([facility])[address] [place] [address] GFR/1.73 sq M.predicted MDRD (S/P/Bld) [Vol rate/Area] mL/min/{1.73_m2} Normal >60 [facility] Comment on above: Result Comment: Calc ulations of estimated GFR are performed using the 2020 CKD-EPI Study Refit equation without the race variable for the IDMS-Traceable creatinine methods.https://jasn.asnjournals.org/content/early// N.2217998424 Performed By: #### 2 4321-2 ####JANETH Galo ([id number])[facility] ([facility])[address] [place] [address] Glucose [Mass/Vol] 140 mg/dL High 74-99 [facility] Comment on above: Performed By: #### 2 4321-2 ####JANETH Galo ([id number])[facility] ([facility])[address] [place] [address] Potassium [Moles/Vol] 4.9 mmol/L Normal 3.5-5.3 [facility] Comment on above: Performed By: #### 2 4321-2 ####JANETH Galo ([id number])[facility] ([facility])[address] [place] [address] Sodium [Moles/Vol] 137 mmol/L Normal 136-145 [facility] Comment on above: Performed By: #### 2 4321-2 ####JANETH Galo ([id number])[facility] ([facility])[address] [place] [address] Urea nitrogen [Mass/Vol] 12 mg/dL Normal 6-23 [facility] Comment on above: Performed By: #### 2 4321-2 ####JANETH Galo ([id number])[facility] ([facility])[address]062 [place] [address] C reactive proteinon 025 CRP [Mass/Vol] 13.34 mg/dL High <1.00 [facility] Comment on above: Performed By: #### 1 988-5 ####JANETH Galo ([id number])[facility] ([facility])[address]45 [place] [address] C-reactive proteinon 025 CRP [Mass/Vol] 13.34 mg/dL High NINF - 1.00 mg/dL [facility] CBC panel Auto (Bld)on 03-31 Erythrocyte distribution width (RBC) [Ratio] 17.3 % High 11.5 - 14.5 % [facility] Hematocrit (Bld) [Volume fraction] 25 % Low 36.0 - 46.0 % [facility] Hemoglobin (Bld) [Mass/Vol] 7.4 g/dL Low 12.0 - 16.0 g/dL [facility] Interpretation and review of laboratory results Abnormal [facility] MCH (RBC) [Entitic mass] 26.4 pg 26.0 - 34.0 pg [facility] MCHC (RBC) [Mass/Vol] 29.6 g/dL Low 32.0 - 36.0 g/dL [facility] MCV (RBC) [Entitic vol] 89 fL 80 - 100 fL [facility] Nucleated RBC/100 WBC (Bld) [Ratio] 1.3 % High [facility] Platelets (Bld) [#/Vol] 627 10*3/uL [facility] RBC (Bld) [#/Vol] 2.8 10*6/uL [facility] WBC (Bld) [#/Vol] 13.6 10*3/uL [facility] Erythrocyte distribution width (RBC) [Ratio] 17.3 % High 11.5-14.5 [facility] Comment on above: Performed By: #### 5 8410-2 ####JANETH Galo ([id number])[facility] ([facility])[address]39 [place] [address] Hematocrit (Bld) [Volume fraction] 25.0 % Low 36.0-46.0 [facility] Comment on above: Performed By: #### 5 8410-2 ####JANETH Galo ([id number])[facility] ([facility])[address] [place] [address] Hemoglobin (Bld) [Mass/Vol] 7.4 g/dL Low 12.0-16.0 [facility] Comment on above: Performed By: #### 5 8410-2 ####JANETH Galo ([id number])[facility] ([facility])[address] [place] [address] MCH (RBC) [Entitic mass] 26.4 pg Normal 26.0-34.0 [facility] Comment on above: Performed By: #### 5 8410-2 ####JANETH Galo ([id number])[facility] ([facility])[address] [place] [address] MCHC (RBC) [Mass/Vol] 29.6 g/dL Low 32.0-36.0 [facility] Comment on above: Performed By: #### 5 8410-2 ####JANETH Galo ([id number])[facility] ([facility])[address] [place] [address] MCV (RBC) [Entitic vol] 89 fL Normal 80-100 [facility] Comment on above: Performed By: #### 5 8410-2 ####JANETH Galo ([id number])[facility] ([facility])[address] [place] [address] Nucleated RBC/100 WBC (Bld) [Ratio] 1.3 /100 WBCs High 0.0-0.0 [facility] Comment on above: Performed By: #### 5 8410-2 ####JANETH Galo ([id number])[facility] ([facility])[address] [place] [address] Platelets (Bld) [#/Vol] 627 x10*3/uL High 150-450 [facility] Comment on above: Performed By: #### 5 8410-2 ####JANETH Galo ([id number])[facility] ([facility])[address] [place] [address] RBC (Bld) [#/Vol] 2.80 x10*6/uL Low 4.00-5.20 [facility] Comment on above: Performed By: #### 5 8410-2 ####JANETH Galo ([id number])[facility] ([facility])[address] [place] [address] WBC (Bld) [#/Vol] 13.6 x10*3/uL High 4.4-11.3 [facility] Comment on above: Performed By: #### 5 8410-2 ####JANETH Galo ([id number])[facility] ([facility])[address] [place] [address] CRP [Mass/Vol]on 03-31-2024 Interpretation and review of laboratory results Abnormal [facility] ESR Westergren method (Bld) [Velocity]on 03-31-2024 ESR (Bld) [Velocity] 32 mm/h High 0 - 30 mm/h [facility] Interpretation and review of laboratory results Abnormal [facility] ESR (Bld) [Velocity] 32 mm/h High 0-30 [facility] Comment on above: Performed By: #### 4 537-7 ####JANETH Galo ([id number])[facility] ([facility])[address]759 [place] [address] Basic metabolic 2000 panelon 03-30-2024 Anion gap [Moles/Vol] 10 mmol/L 10 - 2 0 mmol/L [facility] Calcium [Mass/Vol] 9 mg/dL 8.6 - 10. 6 mg/dL [facility] Chloride [Moles/Vol] 98 mmol/L 98 - 10 7 mmol/L [facility] CO2 [Moles/Vol] 32 mmol/L 21 - 32 mmol/L [facility] Creatinine [Mass/Vol] 0.51 mg/dL 0.50 - 1.05 mg/dL [facility] eGFR - PINF [facility] Comment on above: Calculations of bill mated GFR are performed using the 2020 CKD-EPI Study Refit equation without the race variable for the IDMS-Traceable creatinine methods. https://jasn.asnjournals.org/content//ASN.430403 9596 Glucose [Mass/Vol] 129 mg/dL High 74 - 99 mg/dL [facility] Interpretation and review of laboratory results Abnormal [facility] Potassium [Moles/Vol] 4.4 mmol/L 3.5 - 5.3 mmol/L [facility] Sodium [Moles/Vol] 136 mmol/L 136 - 145 mmol/L [facility] Urea nitrogen [Mass/Vol] 12 mg/dL 6 - 23 mg/dL [facility] Anion gap [Moles/Vol] 10 mmol/L Normal 10-20 [facility] Comment on above: Performed By: #### 2 4321-2 ####JANETH Galo ([id number])[facility] ([facility])[address] [place] [address] Calcium [Mass/Vol] 9.0 mg/dL Normal 8.6-10.6 [facility] Comment on above: Performed By: #### 2 4321-2 ####JANETH GRAFF L ([id number])[facility] ([facility])[address] [place] [address] Chloride [Moles/Vol] 98 mmol/L Normal 98-107 [facility] Comment on above: Performed By: #### 2 4321-2 ####JANETH GRAFF L ([id number])[facility] ([facility])[address]104 [place] [address] CO2 [Moles/Vol] 32 mmol/L Normal 21-32 [facility] Comment on above: Performed By: #### 2 4321-2 ####JANETH Galo ([id number])[facility] ([facility])[address]288 [place] [address] Creatinine [Mass/Vol] 0.51 mg/dL Normal 0.50-1.05 [facility] Comment on above: Performed By: #### 2 4321-2 ####JANETH Galo ([id number])[facility] ([facility])[address]83 [place] [address] GFR/1.73 sq M.predicted MDRD (S/P/Bld) [Vol rate/Area] mL/min/{1.73_m2} Normal >60 [facility] Comment on above: Result Comment: Calc ulations of estimated GFR are performed using the 2020 CKD-EPI Study Refit equation without the race variable for the IDMS-Traceable creatinine methods.https://jasn.asnjournals.org/content/early// N.6127218976 Performed By: #### 2 432-2 ####JANETH Galo ([id number])[facility] ([facility])[address]99 [place] [address] Glucose [Mass/Vol] 129 mg/dL High 74-99 [facility] Comment on above: Performed By: #### 2 4321-2 ####JANETH Galo ([id number])[facility] ([facility])[address] [place] [address] Potassium [Moles/Vol] 4.4 mmol/L Normal 3.5-5.3 [facility] Comment on above: Performed By: #### 2 4321-2 ####JANETH Galo ([id number])[facility] ([facility])[address]658 [place] [address] Sodium [Moles/Vol] 136 mmol/L Normal 136-145 [facility] Comment on above: Performed By: #### 2 4321-2 ####JANETH Galo ([id number])[facility] ([facility])[address] [place] [address] Urea nitrogen [Mass/Vol] 12 mg/dL Normal 6-23 [facility] Comment on above: Performed By: #### 2 4321-2 ####JANETH Galo ([id number])[facility] ([facility])[address] [place] [address] CBC panel Auto (Bld)on 03-30 Erythrocyte distribution width (RBC) [Ratio] 17.2 % High 11.5 - 14.5 % [facility] Hematocrit (Bld) [Volume fraction] 27.1 % Low 36.0 - 46.0 % [facility] Hemoglobin (Bld) [Mass/Vol] 7.9 g/dL Low 12.0 - 16.0 g/dL [facility] Interpretation and review of laboratory results Abnormal [facility] MCH (RBC) [Entitic mass] 26.4 pg 26.0 - 34.0 pg [facility] MCHC (RBC) [Mass/Vol] 29.2 g/dL Low 32.0 - 36.0 g/dL [facility] MCV (RBC) [Entitic vol] 91 fL 80 - 100 fL [facility] Nucleated RBC/100 WBC (Bld) [Ratio] 2.5 % High [facility] Platelets (Bld) [#/Vol] 566 10*3/uL High [facility] RBC (Bld) [#/Vol] 2.99 10*6/uL Low [facility] WBC (Bld) [#/Vol] 15.7 10*3/uL High [facility] Erythrocyte distribution width (RBC) [Ratio] 17.2 % High 11.5-14.5 [facility] Comment on above: Performed By: #### 5 8410-2 ####JANETH Galo ([id number])[facility] ([facility])[address]86 [place] [address] Hematocrit (Bld) [Volume fraction] 27.1 % Low 36.0-46.0 [facility] Comment on above: Performed By: #### 5 8410-2 ####JANETH Galo ([id number])[facility] ([facility])[address] [place] [address] Hemoglobin (Bld) [Mass/Vol] 7.9 g/dL Low 12.0-16.0 [facility] Comment on above: Performed By: #### 5 8410-2 ####JANETH Galo ([id number])[facility] ([facility])[address] [place] [address] MCH (RBC) [Entitic mass] 26.4 pg Normal 26.0-34.0 [facility] Comment on above: Performed By: #### 5 8410-2 ####JANETH Galo ([id number])[facility] ([facility])[address] [place] [address] MCHC (RBC) [Mass/Vol] 29.2 g/dL Low 32.0-36.0 [facility] Comment on above: Performed By: #### 5 8410-2 ####JANETH Galo ([id number])[facility] ([facility])[address] [place] [address] MCV (RBC) [Entitic vol] 91 fL Normal 80-100 [facility] Comment on above: Performed By: #### 5 8410-2 ####JANETH Galo ([id number])[facility] ([facility])[address] [place] [address] Nucleated RBC/100 WBC (Bld) [Ratio] 2.5 /100 WBCs High 0.0-0.0 [facility] Comment on above: Performed By: #### 5 8410-2 ####JANETH Galo ([id number])[facility] ([facility])[address] [place] [address] Platelets (Bld) [#/Vol] 566 x10*3/uL High 150-450 [facility] Comment on above: Performed By: #### 5 8410-2 ####JANETH RANGELER L ([id number])[facility] ([facility])[address] [place] [address] RBC (Bld) [#/Vol] 2.99 x10*6/uL Low 4.00-5.20 [facility] Comment on above: Performed By: #### 5 8410-2 ####JANETH SCHMOTZER L ([id number])[facility] ([facility])[address] [place] [address] WBC (Bld) [#/Vol] 15.7 x10*3/uL High 4.4-11.3 [facility] Comment on above: Performed By: #### 5 8410-2 ####JANETH CONNORMOTZER L ([id number])[facility] ([facility])[address]41 [place] [address] Bacteria identified Cx Nom ( Unsp spec)Ordered By: Corrina Galo on 03-29-2024 Interpretation and review of laboratory results Abnormal [facility] Microscopic observation Gram stain Nom (Unsp spec) No polymorphonuclear leukocytes seen [facility] Microscopic observation Gram stain Nom (Unsp spec) No organisms seen [facility] Basic metabolic 2000 panelon 03-29-2024 Anion gap [Moles/Vol] 11 mmol/L 10 - 2 0 mmol/L [facility] Calcium [Mass/Vol] 8.7 mg/dL 8.6 - 10. 6 mg/dL [facility] Chloride [Moles/Vol] 102 mmol/L 98 - 10 7 mmol/L [facility] CO2 [Moles/Vol] 30 mmol/L 21 - 32 mmol/L [facility] Creatinine [Mass/Vol] 0.58 mg/dL 0.50 - 1.05 mg/dL [facility] eGFR - PINF [facility] Comment on above: Calculations of bill mated GFR are performed using the 2020 CKD-EPI Study Refit equation without the race variable for the IDMS-Traceable creatinine methods. https://jasn.asnjournals.org/content//ASN.455201 1191 Glucose [Mass/Vol] 103 mg/dL High 74 - 99 mg/dL [facility] Interpretation and review of laboratory results Abnormal [facility] Potassium [Moles/Vol] 5.3 mmol/L 3.5 - 5.3 mmol/L [facility] Sodium [Moles/Vol] 138 mmol/L 136 - 145 mmol/L [facility] Urea nitrogen [Mass/Vol] 13 mg/dL 6 - 23 mg/dL [facility] Anion gap [Moles/Vol] 11 mmol/L Normal 10-20 [facility] Comment on above: Performed By: #### 2 4321-2 ####JANETH GRAFF L ([id number])[facility] ([facility])[address] [place] [address] Calcium [Mass/Vol] 8.7 mg/dL Normal 8.6-10.6 [facility] Comment on above: Performed By: #### 2 4321-2 ####JANETH GRAFF L ([id number])[facility] ([facility])[address]237 [place] [address] Chloride [Moles/Vol] 102 mmol/L Normal 98-107 [facility] Comment on above: Performed By: #### 2 4321-2 ####JANETH CONNORMOTZER L ([id number])[facility] ([facility])[address] [place] [address] CO2 [Moles/Vol] 30 mmol/L Normal 21-32 [facility] Comment on above: Performed By: #### 2 4321-2 ####JANETH GRAFF L ([id number])[facility] ([facility])[address]35 [place] [address] Creatinine [Mass/Vol] 0.58 mg/dL Normal 0.50-1.05 [facility] Comment on above: Performed By: #### 2 4321-2 ####JANETH GRAFF L ([id number])[facility] ([facility])[address]145 [place] [address] GFR/1.73 sq M.predicted MDRD (S/P/Bld) [Vol rate/Area] mL/min/{1.73_m2} Normal >60 [facility] Comment on above: Result Comment: Calc ulations of estimated GFR are performed using the 2020 CKD-EPI Study Refit equation without the race variable for the IDMS-Traceable creatinine methods.https://jasn.asnjournals.org/content// N.1498291645 Performed By: #### 2 4321-2 ####JANETH Galo ([id number])[facility] ([facility])[address]483 [place] [address] Glucose [Mass/Vol] 103 mg/dL High 74-99 [facility] Comment on above: Performed By: #### 2 4321-2 ####JANETH GRAFF L ([id number])[facility] ([facility])[address]33 [place] [address] Potassium [Moles/Vol] 5.3 mmol/L Normal 3.5-5.3 [facility] Comment on above: Performed By: #### 2 4321-2 ####JANETH GRAFF L ([id number])[facility] ([facility])[address]105 [place] [address] Sodium [Moles/Vol] 138 mmol/L Normal 136-145 [facility] Comment on above: Performed By: #### 2 4321-2 ####JANETH CONNORMOTZER L (48475)[facility] ([facility])[address]38 [place] [address] Urea nitrogen [Mass/Vol] 13 mg/dL Normal 6-23 [facility] Comment on above: Performed By: #### 2 4321-2 ####JANETH CONNORMOTZER L (60559)[facility] ([facility])[address]365 [place] [address] Anion gap [Moles/Vol] 11 mmol/L 10 - 2 0 mmol/L [facility] Calcium [Mass/Vol] 8.8 mg/dL 8.6 - 10. 6 mg/dL [facility] Chloride [Moles/Vol] 102 mmol/L 98 - 10 7 mmol/L [facility] CO2 [Moles/Vol] 31 mmol/L 21 - 32 mmol/L [facility] Creatinine [Mass/Vol] 0.61 mg/dL 0.50 - 1.05 mg/dL [facility] eGFR - PINF [facility] Comment on above: Calculations of bill mated GFR are performed using the 2020 CKD-EPI Study Refit equation without the race variable for the IDMS-Traceable creatinine methods. https://jasn.asnjournals.org/content//ASN.849357 8890 Glucose [Mass/Vol] 118 mg/dL High 74 - 99 mg/dL [facility] Interpretation and review of laboratory results Abnormal [facility] Potassium [Moles/Vol] 5.5 mmol/L High 3.5 - 5.3 mmol/L [facility] Sodium [Moles/Vol] 138 mmol/L 136 - 145 mmol/L [facility] Urea nitrogen [Mass/Vol] 14 mg/dL 6 - 23 mg/dL [facility] Anion gap [Moles/Vol] 11 mmol/L Normal 10-20 [facility] Comment on above: Performed By: #### 2 4321-2 ####JANETH Galo ([id number])[facility] ([facility])[address] [place] [address] Calcium [Mass/Vol] 8.8 mg/dL Normal 8.6-10.6 [facility] Comment on above: Performed By: #### 2 4321-2 ####JANETH GRAFF L (25532)[facility] ([facility])[address]75 [place] [address] Chloride [Moles/Vol] 102 mmol/L Normal 98-107 [facility] Comment on above: Performed By: #### 2 4321-2 ####JANETH GRAFF L ([id number])[facility] ([facility])[address] [place] [address] CO2 [Moles/Vol] 31 mmol/L Normal 21-32 [facility] Comment on above: Performed By: #### 2 4321-2 ####JANETH Galo ([id number])[facility] ([facility])[address]163 [place] [address] Creatinine [Mass/Vol] 0.61 mg/dL Normal 0.50-1.05 [facility] Comment on above: Performed By: #### 2 4321-2 ####JANETH Galo ([id number])[facility] ([facility])[address]647 [place] [address] GFR/1.73 sq M.predicted MDRD (S/P/Bld) [Vol rate/Area] mL/min/{1.73_m2} Normal >60 [facility] Comment on above: Result Comment: Calc ulations of estimated GFR are performed using the 2020 CKD-EPI Study Refit equation without the race variable for the IDMS-Traceable creatinine methods.https://jasn.asnjournals.org/content/early// N.7938857605 Performed By: #### 2 4321-2 ####JANETH Galo ([id number])[facility] ([facility])[address] [place] [address] Glucose [Mass/Vol] 118 mg/dL High 74-99 [facility] Comment on above: Performed By: #### 2 4321-2 ####JANETH Galo ([id number])[facility] ([facility])[address]183 [place] [address] Potassium [Moles/Vol] 5.5 mmol/L High 3.5-5.3 [facility] Comment on above: Performed By: #### 2 4321-2 ####JANETH Galo (14952)[facility] ([facility])[address]366 [place] [address] Sodium [Moles/Vol] 138 mmol/L Normal 136-145 [facility] Comment on above: Performed By: #### 2 4321-2 ####JANETH Galo ([id number])[facility] ([facility])[address]39 [place] [address] Urea nitrogen [Mass/Vol] 14 mg/dL Normal - [facility] Comment on above: Performed By: #### 2 4321-2 ####JANETH Galo ([id number])[facility] ([facility])[id number] [place] [address] C reactive proteinon 025 CRP [Mass/Vol] 17.66 mg/dL High <1.00 [facility] Comment on above: Performed By: #### 1 988-5 ####JANETH Galo ([id number])[facility] ([facility])[address] [place] [address] C-reactive proteinon 025 CRP [Mass/Vol] 17.66 mg/dL High NINF - 1.00 mg/dL [facility] CBC panel Auto (Bld)on 03-29 Erythrocyte distribution width (RBC) [Ratio] 17.3 % High 11.5 - 14.5 % [facility] Hematocrit (Bld) [Volume fraction] 27.1 % Low 36.0 - 46.0 % [facility] Hemoglobin (Bld) [Mass/Vol] 8.1 g/dL Low 12.0 - 16.0 g/dL [facility] Interpretation and review of laboratory results Abnormal [facility] MCH (RBC) [Entitic mass] 26.8 pg 26.0 - 34.0 pg [facility] MCHC (RBC) [Mass/Vol] 29.9 g/dL Low 32.0 - 36.0 g/dL [facility] MCV (RBC) [Entitic vol] 90 fL 80 - 100 fL [facility] Nucleated RBC/100 WBC (Bld) [Ratio] 5.4 % High [facility] Platelets (Bld) [#/Vol] 461 10*3/uL High [facility] RBC (Bld) [#/Vol] 3.02 10*6/uL Low [facility] WBC (Bld) [#/Vol] 16.9 10*3/uL [place] [facility] [place]throcyte distribution width (RBC) [Ratio] 17.3 % High 11.5-14.5 [facility] Comment on above: Performed By: #### 5 8410-2 ####JANETH Galo ([id number])[facility] ([facility])[address] [place] [address] Hematocrit (Bld) [Volume fraction] 27.1 % Low 36.0-46.0 [facility] Comment on above: Performed By: #### 5 8410-2 ####JANETH Galo ([id number])[facility] ([facility])[address] [place] [address] Hemoglobin (Bld) [Mass/Vol] 8.1 g/dL Low 12.0-16.0 [facility] Comment on above: Performed By: #### 5 8410-2 ####JANETH Galo ([id number])[facility] ([facility])[address] [place] [address] MCH (RBC) [Entitic mass] 26.8 pg Normal 26.0-34.0 [facility] Comment on above: Performed By: #### 5 8410-2 ####JANETH Galo ([id number])[facility] ([facility])[address] [place] [address] MCHC (RBC) [Mass/Vol] 29.9 g/dL Low 32.0-36.0 [facility] Comment on above: Performed By: #### 5 8410-2 ####JANETH Galo ([id number])[facility] ([facility])[address] [place] [address] MCV (RBC) [Entitic vol] 90 fL Normal 80-100 [facility] Comment on above: Performed By: #### 5 8410-2 ####JANETH Galo ([id number])[facility] ([facility])[address] [place] [address] Nucleated RBC/100 WBC (Bld) [Ratio] 5.4 /100 WBCs High 0.0-0.0 [facility] Comment on above: Performed By: #### 5 8410-2 ####JANETH Galo ([id number])[facility] ([facility])[address] [place] [address] Platelets (Bld) [#/Vol] 461 x10*3/uL High 150-450 [facility] Comment on above: Performed By: #### 5 8410-2 ####JANETH Galo ([id number])[facility] ([facility])[address] [place] [address] RBC (Bld) [#/Vol] 3.02 x10*6/uL Low 4.00-5.20 [facility] Comment on above: Performed By: #### 5 8410-2 ####JANETH Galo ([id number])[facility] ([facility])[address] [place] [address]266 WBC (Bld) [#/Vol] 16.9 x10*3/uL High 4.4-11.3 [facility] Comment on above: Performed By: #### 5 8410-2 ####JANETH Galo ([id number])[facility] ([facility])[address] [place] [address] 169[address] CRP [Mass/Vol]on 03-29-2024 Interpretation and review of laboratory results Abnormal [facility] ESR Westergren method (Bld) [Velocity]on 03-29-2024 ESR (Bld) [Velocity] 49 mm/h High 0 - 30 mm/h [facility] Interpretation and review of laboratory results Abnormal [facility] ESR (Bld) [Velocity] 49 mm/h High 0-30 [facility] Comment on above: Performed By: #### 4 537-7 ####JANETH Galo ([id number])[facility] ([facility])[address] [place] [id number] No Panel Informationon 03-29 Interval explantatio n of hardware in the tibia with placement of antibiotic beads. Soft tissue edema about calf. MACRO: None Signed by: Luis F Ochoa 03/29/2024 4:40 PM Dictation workstation: [id number] MMODAL Interpreted By: Luis F Mckinney, STUDY: XR KNEE RIGHT 1-2 VIEWS; XR TIBIA FIBULA RIGHT 2 VIEWS; ; 03/29/2024 3:55 pm; 03/29/2024 3:57 pm INDICATION: Signs/Symptoms:s/p R knee fusion. COMPARISON: 08/25/2023. ACCESSION NUMBER(S): [id number]; [id number] ORDERING CLINICIAN: AMIE CHA FINDINGS: Right knee, [...] R knee fusion. COMPARISON: 08/25/2023. ACCESSION NUMBER(S): [id number]; [id number] ORDERING CLINICIAN: AMIE CHA FINDINGS: Right knee, [...] F Ochoa 03/29/2024 4:40 PM Dictation workstation: [id number] [facility] Work Phone: Radiology Study observation (narrative) [facility] Work Phone: No Panel InformationOrdered By: Luis F Ochoa on 03-29-2024 [facility] Work Phone: Tissue/Wound Culture/SmearOr dered By: Corrina Galo on 03-29-2024 Bacteria identified Cx Nom (Unsp spec) (1+) Rare Escherichia coli Abnormal [facility] XR KNEE RIGHT 1-2 VIEWSon XR KNEE RIGHT 1-2 VIEWS Normal [facility] Comment on above: Order Comment: Lorena valdes obtain AP and lateral views XR TIBIA FIBULA RIGHT 2 VIEW Son 03-29-2024 XR TIBIA FIBULA RIGHT 2 VIEWS Normal [facility] C reactive proteinon 025 CRP [Mass/Vol] 21.25 mg/dL High <1.00 [facility] Comment on above: Performed By: #### 1 988-5 ####JANETH Galo ([id number])[facility] ([facility])[address] [place] [address] C-reactive proteinon 025 CRP [Mass/Vol] 21.25 mg/dL High NINF - 1.00 mg/dL [facility] CBC panel Auto (Bld)on 03-28 Erythrocyte distribution width (RBC) [Ratio] 17.7 % High 11.5 - 14.5 % [facility] Hematocrit (Bld) [Volume fraction] 27.9 % Low 36.0 - 46.0 % [facility] Hemoglobin (Bld) [Mass/Vol] 8.1 g/dL Low 12.0 - 16.0 g/dL [facility] Interpretation and review of laboratory results Abnormal [facility] MCH (RBC) [Entitic mass] 26.2 pg 26.0 - 34.0 pg [facility] MCHC (RBC) [Mass/Vol] 29 g/dL Low 32.0 - 36.0 g/dL [facility] MCV (RBC) [Entitic vol] 90 fL 80 - 100 fL [facility] Nucleated RBC/100 WBC (Bld) [Ratio] 7.5 % High [facility] Platelets (Bld) [#/Vol] 370 10*3/uL [facility] RBC (Bld) [#/Vol] 3.09 10*6/uL Low [facility] WBC (Bld) [#/Vol] 16.5 10*3/uL [facility] [place] Erythrocyte distribution width (RBC) [Ratio] 17.7 % High 11.5-14.5 [facility] Comment on above: Performed By: #### 5 8410-2 ####JANETH Galo ([id number])[facility] ([facility])[address] [place] [address] Hematocrit (Bld) [Volume fraction] 27.9 % Low 36.0-46.0 [facility] Comment on above: Performed By: #### 5 8410-2 ####JANETH Galo ([id number])[facility] ([facility])[address] [place] [address] Hemoglobin (Bld) [Mass/Vol] 8.1 g/dL Low 12.0-16.0 [facility] Comment on above: Performed By: #### 5 8410-2 ####JANETH Galo ([id number])[facility] ([facility])[address] [place] [address] 31668 MCH (RBC) [Entitic mass] 26.2 pg Normal 26.0-34.0 [facility] Comment on above: Performed By: #### 5 8410-2 ####JANETH Galo ([id number])[facility] ([facility])[address] [place] [address] MCHC (RBC) [Mass/Vol] 29.0 g/dL Low 32.0-36.0 [facility] Comment on above: Performed By: #### 5 8410-2 ####JANETH Galo ([id number])[facility] ([facility])[address] [place] [address] MCV (RBC) [Entitic vol] 90 fL Normal 80-100 [facility] Comment on above: Performed By: #### 5 8410-2 ####JANETH Galo ([id number])[facility] ([facility])[address] [place] [address] 35279 Nucleated RBC/100 WBC (Bld) [Ratio] 7.5 /100 WBCs High 0.0-0.0 [facility] Comment on above: Performed By: #### 5 8410-2 ####JANETH Galo ([id number])[facility] ([facility])[address] [place] [address] 11509 Platelets (Bld) [#/Vol] 370 x10*3/uL Normal 150-450 [facility] Comment on above: Performed By: #### 5 8410-2 ####JANETH Galo ([id number])[facility] ([facility])[address] [place] [address]08 RBC (Bld) [#/Vol] 3.09 x10*6/uL Low 4.00-5.20 [facility] Comment on above: Performed By: #### 5 8410-2 ####JANETH Galo ([id number])[facility] ([facility])[address] [place] [address] 67968 WBC (Bld) [#/Vol] 16.5 x10*3/uL High 4.4-11.3 [facility] Comment on above: Performed By: #### 5 8410-2 ####JANETH Galo ([id number])[facility] ([facility])[address] [place] [address] Comprehensive metabolic 2000 panelon 03-28-2024 Albumin BCP dye [Mass/Vol] 3.6 g/dL 3.4 - 5.0 g/dL [facility] ALP [Catalytic activity/Vol] 129 U/L High 33 - 110 U/L [facility] ALT With P-5'-P [Catalytic activity/Vol] 19 U/L 7 - 45 U/L [facility] Comment on above: Patients treated wit h Sulfasalazine may generate falsely decreased results for ALT. Anion gap [Moles/Vol] 12 mmol/L 10 - 2 0 mmol/L [facility] AST With P-5'-P [Catalytic activity/Vol] 18 U/L 9 - 39 U/L [facility] Bilirubin [Mass/Vol] 0.3 mg/dL 0.0 - 1 .2 mg/dL [facility] Calcium [Mass/Vol] 8.9 mg/dL 8.6 - 10. 6 mg/dL [facility] Chloride [Moles/Vol] 104 mmol/L 98 - 10 7 mmol/L [facility] CO2 [Moles/Vol] 26 mmol/L 21 - 32 mmol/L [facility] Creatinine [Mass/Vol] 0.64 mg/dL 0.50 - 1.05 mg/dL [facility] eGFR - PINF [facility] Comment on above: Calculations of bill mated GFR are performed using the 2020 CKD-EPI Study Refit equation without the race variable for the IDMS-Traceable creatinine methods. https://jasn.asnjournals.org/content//ASN.526355 8092 Glucose [Mass/Vol] 101 mg/dL High 74 - 99 mg/dL [facility] Potassium [Moles/Vol] 4.7 mmol/L 3.5 - 5.3 mmol/L [facility] Protein [Mass/Vol] 6.9 g/dL 6.4 - 8.2 g/dL [facility] Sodium [Moles/Vol] 137 mmol/L 136 - 145 mmol/L [facility] Urea nitrogen [Mass/Vol] 15 mg/dL 6 - 23 mg/dL [facility] Albumin BCP dye [Mass/Vol] 3.6 g/dL Normal 3.4-5.0 [facility] Comment on above: Performed By: #### 2 4323-8 ####JANETH Galo ([id number])[facility] ([facility])[address] [place] [address] ALP [Catalytic activity/Vol] 129 U/L High 33-110 [facility] Comment on above: Performed By: #### 2 4323-8 ####JANETH Galo ([id number])[facility] ([facility])[address] [place] [address] ALT With P-5'-P [Catalytic activity/Vol] 19 U/L Normal 7-45 [facility] Comment on above: Result Comment: Tomasa ents treated with Sulfasalazine may generate falsely decreased results for ALT. Performed By: #### 2 4323-8 ####JANETH Galo ([id number])[facility] ([facility])[address] [place] [address] Anion gap [Moles/Vol] 12 mmol/L Normal 10-20 [facility] Comment on above: Performed By: #### 2 4323-8 ####JANETH Galo ([id number])[facility] ([facility])[address] [place] [address] AST With P-5'-P [Catalytic activity/Vol] 18 U/L Normal 9-39 [facility] Comment on above: Performed By: #### 2 4323-8 ####JANETH Galo ([id number])[facility] ([facility])[address] [place] [address] Bilirubin [Mass/Vol] 0.3 mg/dL Normal 0.0-1.2 [facility] Comment on above: Performed By: #### 2 4323-8 ####JANETH Galo ([id number])[facility] ([facility])[address] [place] [address] Calcium [Mass/Vol] 8.9 mg/dL Normal 8.6-10.6 [facility] Comment on above: Performed By: #### 2 4323-8 ####JANETH Galo ([id number])[facility] ([facility])[address] [place] [address] Chloride [Moles/Vol] 104 mmol/L Normal 98-107 [facility] Comment on above: Performed By: #### 2 4323-8 ####JANETH Galo ([id number])[facility] ([facility])[address] [place] [address] CO2 [Moles/Vol] 26 mmol/L Normal 21-32 [facility] Comment on above: Performed By: #### 2 4323-8 ####JANETH Galo ([id number])[facility] ([facility])[address] [place] [address] Creatinine [Mass/Vol] 0.64 mg/dL Normal 0.50-1.05 [facility] Comment on above: Performed By: #### 2 4323-8 ####JANETH Galo ([id number])[facility] ([facility])[address] [place] [address] GFR/1.73 sq M.predicted MDRD (S/P/Bld) [Vol rate/Area] mL/min/{1.73_m2} Normal >60 [facility] Comment on above: Result Comment: Calc ulations of estimated GFR are performed using the 2020 CKD-EPI Study Refit equation without the race variable for the IDMS-Traceable creatinine methods.https://jasn.asnjournals.org/content/early/ N.1221161887 Performed By: #### 2 4323-8 ####JANETH Galo ([id number])[facility] ([facility])[address] [place] [address] Glucose [Mass/Vol] 101 mg/dL High 74-99 [facility] Comment on above: Performed By: #### 2 4323-8 ####JANETH Galo ([id number])[facility] ([facility])[address] [place] [address] Potassium [Moles/Vol] 4.7 mmol/L Normal 3.5-5.3 [facility] Comment on above: Performed By: #### 2 4323-8 ####JANETH Galo ([id number])[facility] ([facility])[address] [place] [address] Protein [Mass/Vol] 6.9 g/dL Normal 6.4-8.2 [facility] Comment on above: Performed By: #### 2 4323-8 ####JANETH Galo ([id number])[facility] ([facility])[address] [place] [address] Sodium [Moles/Vol] 137 mmol/L Normal 136-145 [facility] Comment on above: Performed By: #### 2 4323-8 ####JANETH Galo ([id number])[facility] ([facility])[address] [place] [address] Urea nitrogen [Mass/Vol] 15 mg/dL Normal 6-23 [facility] Comment on above: Performed By: #### 2 4323-8 ####JANETH Galo ([id number])[facility] ([facility])[address] [place] [address] ESR Westergren method (Bld) [Velocity]on 03-28-2024 ESR (Bld) [Velocity] 41 mm/h High 0 - 30 mm/h [facility] Interpretation and review of laboratory results Abnormal [facility] ESR (Bld) [Velocity] 41 mm/h High 0-30 [facility] Comment on above: Performed By: #### 4 537-7 ####JANETH Galo ([id number])[facility] ([facility])[address] [place], [place] [id number] No Panel Informationon 03-28 Blood Expiration Date 04/22/2024 11:59:00 PM EST [facility] Dispense Status RE [facility] Dispense Status TR [facility] PRODUCT BLOOD TYPE 6200 [facility] PRODUCT CODE [id number] [facility] Unit ABO A [facility] Unit RH Positive [facility] UNIT VOLUME 350 [facility] XM INTEP COMP [facility] Interpretation and review of laboratory results Abnormal [facility] Prepare RBC: 4 Unitson 03-28 Blood Expiration Date 04/24/2024 11:59:00 PM EST [facility] Blood Expiration Date 04/25/2024 11:59:00 PM EDT [facility] Unit Number [id number] [facility] Unit Number [id number] [facility] Unit Number [id number] [facility] Unit Number [id number] [facility] Basic metabolic 2000 panelon 03-27-2024 Anion gap [Moles/Vol] 12 mmol/L 10 - 2 0 mmol/L [facility] Calcium [Mass/Vol] 6.6 mg/dL Low 8.6 - 10. 6 mg/dL [facility] Chloride [Moles/Vol] 103 mmol/L 98 - 10 7 mmol/L [facility] CO2 [Moles/Vol] 27 mmol/L 21 - 32 mmol/L [facility] Creatinine [Mass/Vol] 0.74 mg/dL 0.50 - 1.05 mg/dL [facility] eGFR - PINF [facility] Comment on above: Calculations of [facility] GFR are performed using the 2020 CKD-EPI Study Refit equation without the race variable for the IDMS-Traceable creatinine methods. https://jasn.asnjournals.org/content//ASN.772163 4979 Glucose [Mass/Vol] 144 mg/dL High 74 - 99 mg/dL [facility] Interpretation and review of laboratory results Abnormal [facility] Potassium [Moles/Vol] 6.1 mmol/L Critically high 3.5 - 5.3 mmol/L [facility] Sodium [Moles/Vol] 136 mmol/L 136 - 145 mmol/L [facility] Urea nitrogen [Mass/Vol] 15 mg/dL 6 - 23 mg/dL [facility] Anion gap [Moles/Vol] 12 mmol/L Normal 10-20 [facility] Comment on above: Performed By: #### 2 4321-2 ####JANETH Galo ([id number])[facility] ([facility])[address] [place] [address] Calcium [Mass/Vol] 6.6 mg/dL Low 8.6-10.6 [facility] Comment on above: Performed By: #### 2 4321-2 ####JANETH GRAFF L ([id number])[facility] ([facility])[address] [place] [address] Chloride [Moles/Vol] 103 mmol/L Normal 98-107 [facility] Comment on above: Performed By: #### 2 4321-2 ####JANETH Galo ([id number])[facility] ([facility])[address] [place] [address] CO2 [Moles/Vol] 27 mmol/L Normal 21-32 [facility] Comment on above: Performed By: #### 2 4321-2 ####JANETH Galo ([id number])[facility] ([facility])[address] [place] [address] Creatinine [Mass/Vol] 0.74 mg/dL Normal 0.50-1.05 [facility] Comment on above: Performed By: #### 2 4321-2 ####JANETH Galo ([id number])[facility] ([facility])[address] [place] [address] GFR/1.73 sq M.predicted MDRD (S/P/Bld) [Vol rate/Area] mL/min/{1.73_m2} Normal >60 [facility] Comment on above: Result Comment: Calc ulations of estimated GFR are performed using the 2020 CKD-EPI Study Refit equation without the race variable for the IDMS-Traceable creatinine methods.https://jasn.asnjournals.org/content/early/ N.4448151976 Performed By: #### 2 4321-2 ####JANETH Galo (48510)[facility] ([facility])[address] [place] [address] Glucose [Mass/Vol] 144 mg/dL High 74-99 [facility] Comment on above: Performed By: #### 2 4321-2 ####JANETH GRAFF L ([id number])[facility] ([facility])[address] [place] [address] Potassium [Moles/Vol] 6.1 mmol/L Critically high 3.5-5.3 [facility] Comment on above: Performed By: #### 2 4321-2 ####JANETH Galo ([id number])[facility] ([facility])[address] [place] [address] Sodium [Moles/Vol] 136 mmol/L Normal 136-145 [facility] Comment on above: Performed By: #### 2 4321-2 ####JANETH Galo ([id number])[facility] ([facility])[address] [place] [address] Urea nitrogen [Mass/Vol] 15 mg/dL Normal 6-23 [facility] Comment on above: Performed By: #### 2 4321-2 ####JANETH GRAFF L ([id number])[facility] ([facility])[address] [place] [address] Anion gap [Moles/Vol] 12 mmol/L 10 - 2 0 mmol/L [facility] Calcium [Mass/Vol] 8.5 mg/dL Low 8.6 - 10. 6 mg/dL [facility] Chloride [Moles/Vol] 104 mmol/L 98 - 10 7 mmol/L [facility] CO2 [Moles/Vol] 26 mmol/L 21 - 32 mmol/L [facility] Creatinine [Mass/Vol] 0.76 mg/dL 0.50 - 1.05 mg/dL [facility] eGFR - PINF [facility] Comment on above: Calculations of bill mated GFR are performed using the 2020 CKD-EPI Study Refit equation without the race variable for the IDMS-Traceable creatinine methods. https://jasn.asnjournals.org/content//ASN.869569 0123 Glucose [Mass/Vol] 110 mg/dL High 74 - 99 mg/dL [facility] Interpretation and review of laboratory results Abnormal [facility] Potassium [Moles/Vol] 4.8 mmol/L 3.5 - 5.3 mmol/L [facility] Sodium [Moles/Vol] 137 mmol/L 136 - 145 mmol/L [facility] Urea nitrogen [Mass/Vol] 18 mg/dL 6 - 23 mg/dL [facility] Anion gap [Moles/Vol] 12 mmol/L Normal 10-20 [facility] Comment on above: Performed By: #### 2 4321-2 ####JANETH GRAFF L ([id number])[facility] ([facility])[address] [place] [address] Calcium [Mass/Vol] 8.5 mg/dL Low 8.6-10.6 [facility] Comment on above: Performed By: #### 2 4321-2 ####JANETH GRAFF L ([id number])[facility] ([facility])[address] [place] [address] Chloride [Moles/Vol] 104 mmol/L Normal 98-107 [facility] Comment on above: Performed By: #### 2 4321-2 ####JANETH GRAFF L ([id number])[facility] ([facility])[address] [place] [address] CO2 [Moles/Vol] 26 mmol/L Normal 21-32 [facility] Comment on above: Performed By: #### 2 4321-2 ####JANETH GRAFF L ([id number])[facility] ([facility])[address] [place] [address] Creatinine [Mass/Vol] 0.76 mg/dL Normal 0.50-1.05 [facility] Comment on above: Performed By: #### 2 4321-2 ####JANETH GRAFF L ([id number])[facility] ([facility])[address] [place] [address] GFR/1.73 sq M.predicted MDRD (S/P/Bld) [Vol rate/Area] mL/min/{1.73_m2} Normal >60 [facility] Comment on above: Result Comment: Calc ulations of estimated GFR are performed using the 2020 CKD-EPI Study Refit equation without the race variable for the IDMS-Traceable creatinine methods.https://jasn.asnjournals.org/content/early// N.2623693846 Performed By: #### 2 4321-2 ####JANETH MCDONALDTZER L ([id number])[facility] ([facility])[address] [place] [address] Glucose [Mass/Vol] 110 mg/dL High 74-99 [facility] Comment on above: Performed By: #### 2 4321-2 ####JANETH SCHMOTZER L ([id number])[facility] ([facility])[address] [place] [address] Potassium [Moles/Vol] 4.8 mmol/L Normal 3.5-5.3 [facility] Comment on above: Performed By: #### 2 4321-2 ####JANETH SCHMOTZER L ([id number])[facility] ([facility])[address] [place] [address] Sodium [Moles/Vol] 137 mmol/L Normal 136-145 [facility] Comment on above: Performed By: #### 2 4321-2 ####JANETH SCHMOTZER L (74053)[facility] ([facility])[address] [place] [address] Urea nitrogen [Mass/Vol] 18 mg/dL Normal 6-23 [facility] Comment on above: Performed By: #### 2 4321-2 ####JANETH SCHMOTZER L (46156)[facility] ([facility])[address] [place] [address] C reactive proteinon 025 CRP [Mass/Vol] 21.74 mg/dL High <1.00 [facility] Comment on above: Performed By: #### 1 988-5 ####JANETH Galo ([id number])[facility] ([facility])[address] [place] [address] C-reactive proteinon 025 CRP [Mass/Vol] 21.74 mg/dL High NINF - 1.00 mg/dL [facility] CBC panel Auto (Bld)on 03-27 Erythrocyte distribution width (RBC) [Ratio] 17.2 % High 11.5 - 14.5 % [facility] Hematocrit (Bld) [Volume fraction] 28.4 % Low 36.0 - 46.0 % [facility] Hemoglobin (Bld) [Mass/Vol] 8.3 g/dL Low 12.0 - 16.0 g/dL [facility] Interpretation and review of laboratory results Abnormal [facility] MCH (RBC) [Entitic mass] 26.7 pg 26.0 - 34.0 pg [facility] MCHC (RBC) [Mass/Vol] 29.2 g/dL Low 32.0 - 36.0 g/dL [facility] MCV (RBC) [Entitic vol] 91 fL 80 - 100 fL [facility] Nucleated RBC/100 WBC (Bld) [Ratio] 8.4 % High [facility] Platelets (Bld) [#/Vol] 372 10*3/uL [facility] RBC (Bld) [#/Vol] 3.11 10*6/uL Low [facility] WBC (Bld) [#/Vol] 18.2 10*3/uL [place] [facility] [place]throcyte distribution width (RBC) [Ratio] 17.2 % High 11.5-14.5 [facility] Comment on above: Performed By: #### 5 [id number] ####JANETH Galo ([id number])[facility] ([facility])[address] [place] [address] Hematocrit (Bld) [Volume fraction] 28.4 % Low 36.0-46.0 [facility] Comment on above: Performed By: #### 5 8410-2 ####JANETH Galo ([id number])[facility] ([facility])[id number] [place] [address]13 Hemoglobin (Bld) [Mass/Vol] 8.3 g/dL Low 12.0-16.0 [facility] Comment on above: Performed By: #### 5 8410-2 ####JANETH Galo ([id number])[facility] ([facility])[address] [place] [address] 95812 MCH (RBC) [Entitic mass] 26.7 pg Normal 26.0-34.0 [facility] Comment on above: Performed By: #### 5 8410-2 ####JANETH Galo ([id number])[facility] ([facility])[address] [place] [address] 40749 MCHC (RBC) [Mass/Vol] 29.2 g/dL Low 32.0-36.0 [facility] Comment on above: Performed By: #### 5 8410-2 ####JANETH Galo ([id number])[facility] ([facility])[address] [place] [address] 57764 MCV (RBC) [Entitic vol] 91 fL Normal 80-100 [facility] Comment on above: Performed By: #### 5 8410-2 ####JANETH Galo ([id number])[facility] ([facility])[address] [place] [address] 24993 Nucleated RBC/100 WBC (Bld) [Ratio] 8.4 /100 WBCs High 0.0-0.0 [facility] Comment on above: Performed By: #### 5 8410-2 ####JANETH Galo ([id number])[facility] ([facility])[address] [place] [address]8414 Platelets (Bld) [#/Vol] 372 x10*3/uL Normal 150-450 [facility] Comment on above: Performed By: #### 5 8410-2 ####JANETH Galo ([id number])[facility] ([facility])[address] [place] [address] RBC (Bld) [#/Vol] 3.11 x10*6/uL Low 4.00-5.20 [facility] Comment on above: Performed By: #### 5 8410-2 ####JANETH Galo ([id number])[facility] ([facility])[address] [place] [address] WBC (Bld) [#/Vol] 18.2 x10*3/uL High 4.4-11.3 [facility] Comment on above: Performed By: #### 5 8410-2 ####JANETH Galo ([id number])[facility] ([facility])[address] [place] [address] Erythrocyte distribution width (RBC) [Ratio] 17.2 % High 11.5 - 14.5 % [facility] Hematocrit (Bld) [Volume fraction] 28.2 % Low 36.0 - 46.0 % [facility] Hemoglobin (Bld) [Mass/Vol] 8.5 g/dL Low 12.0 - 16.0 g/dL [facility] Interpretation and review of laboratory results Abnormal [facility] MCH (RBC) [Entitic mass] 26.7 pg 26.0 - 34.0 pg [facility] MCHC (RBC) [Mass/Vol] 30.1 g/dL Low 32.0 - 36.0 g/dL [facility] MCV (RBC) [Entitic vol] 89 fL 80 - 100 fL [facility] Nucleated RBC/100 WBC (Bld) [Ratio] 8.5 % High [facility] Platelets (Bld) [#/Vol] 350 10*3/uL [facility] RBC (Bld) [#/Vol] 3.18 10*6/uL Low [facility] WBC (Bld) [#/Vol] 19.2 10*3/uL High [facility] Erythrocyte distribution width (RBC) [Ratio] 17.2 % High 11.5-14.5 [facility] Comment on above: Performed By: #### 5 8410-2 ####JANETH Galo ([id number])[facility] ([facility])[id number] [place] [address]327 Hematocrit (Bld) [Volume fraction] 28.2 % Low 36.0-46.0 [facility] Comment on above: Performed By: #### 5 8410-2 ####JANETH Galo ([id number])[facility] ([facility])[address] [place] [address] 22881 Hemoglobin (Bld) [Mass/Vol] 8.5 g/dL Low 12.0-16.0 [facility] Comment on above: Performed By: #### 5 8410-2 ####JANETH Galo ([id number])[facility] ([facility])[address] [place] [address] 56362 MCH (RBC) [Entitic mass] 26.7 pg Normal 26.0-34.0 [facility] Comment on above: Performed By: #### 5 8410-2 ####JANETH Galo ([id number])[facility] ([facility])[address] [place] [address] 84308 MCHC (RBC) [Mass/Vol] 30.1 g/dL Low 32.0-36.0 [facility] Comment on above: Performed By: #### 5 8410-2 ####JANETH Galo ([id number])[facility] ([facility])[address] [place] [address] 12276 MCV (RBC) [Entitic vol] 89 fL Normal 80-100 [facility] Comment on above: Performed By: #### 5 8410-2 ####JANETH Galo ([id number])[facility] ([facility])[address] [place] [address] 67340 Nucleated RBC/100 WBC (Bld) [Ratio] 8.5 /100 WBCs High 0.0-0.0 [facility] Comment on above: Performed By: #### 5 8410-2 ####JANETH Galo ([id number])[facility] ([facility])[address] [place] [address] Platelets (Bld) [#/Vol] 350 x10*3/uL Normal 150-450 [facility] Comment on above: Performed By: #### 5 8410-2 ####JANETH Galo ([id number])[facility] ([facility])[address] [place] [address] RBC (Bld) [#/Vol] 3.18 x10*6/uL Low 4.00-5.20 [facility] Comment on above: Performed By: #### 5 8410-2 ####JANETH Galo ([id number])[facility] ([facility])[address] [place] [address] 36015 WBC (Bld) [#/Vol] 19.2 x10*3/uL High 4.4-11.3 [facility] Comment on above: Performed By: #### 5 8410-2 ####JANETH Galo ([id number])[facility] ([facility])[address] [place] [address] 41631 CRP [Mass/Vol]on 03-27-2024 Interpretation and review of laboratory results Abnormal [facility] ESR Westergren method (Bld) [Velocity]on 03-27-2024 ESR (Bld) [Velocity] 48 mm/h High 0 - 30 mm/h [facility] Interpretation and review of laboratory results Abnormal [facility] ESR (Bld) [Velocity] 48 mm/h High 0-30 [facility] Comment on above: Performed By: #### 4 537-7 ####JANETH Galo ([id number])[facility] ([facility])[address] [place] [address] 23765 Basic metabolic 2000 panelon 03-26-2024 Anion gap [Moles/Vol] 13 mmol/L 10 - 2 0 mmol/L [facility] Calcium [Mass/Vol] 8.1 mg/dL Low 8.6 - 10. 6 mg/dL [facility] Chloride [Moles/Vol] 102 mmol/L 98 - 10 7 mmol/L [facility] CO2 [Moles/Vol] 24 mmol/L 21 - 32 mmol/L [facility] Creatinine [Mass/Vol] 1.06 mg/dL High 0.50 - 1.05 mg/dL [facility] GFR/1.73 sq M.predicted among non-blacks MDRD (S/P/Bld) [Vol rate/Area] 63 mL/min/{1.73_m2} - PINF [facility] Comment on above: Calculations of bill mated GFR are performed using the 2020 CKD-EPI Study Refit equation without the race variable for the IDMS-Traceable creatinine methods. https://jasn.asnjournals.org/content/early//ASN.006235 8988 Glucose [Mass/Vol] 118 mg/dL High 74 - 99 mg/dL [facility] Interpretation and review of laboratory results Abnormal [facility] Potassium [Moles/Vol] 5 mmol/L 3.5 - 5.3 mmol/L [facility] Sodium [Moles/Vol] 134 mmol/L Low 136 - 145 mmol/L [facility] Urea nitrogen [Mass/Vol] 23 mg/dL 6 - 23 mg/dL [facility] Anion gap [Moles/Vol] 13 mmol/L Normal 10-20 [facility] Comment on above: Performed By: #### 2 4321-2 ####JANETH Galo ([id number])[facility] ([facility])[address] [place] [address] Calcium [Mass/Vol] 8.1 mg/dL Low 8.6-10.6 [facility] Comment on above: Performed By: #### 2 4321-2 ####JANETH Galo ([id number])[facility] ([facility])[address] [place] [address] Chloride [Moles/Vol] 102 mmol/L Normal 98-107 [facility] Comment on above: Performed By: #### 2 4321-2 ####JANETH Galo ([id number])[facility] ([facility])[address] [place] [address] CO2 [Moles/Vol] 24 mmol/L Normal 21-32 [facility] Comment on above: Performed By: #### 2 4321-2 ####JANETH GRAFF L ([id number])[facility] ([facility])[address] [place] [address] Creatinine [Mass/Vol] 1.06 mg/dL High 0.50-1.05 [facility] Comment on above: Performed By: #### 2 4321-2 ####JANETH Galo ([id number])[facility] ([facility])[address] [place] [address] Glomerular filtration rate/1.73 sq M.predicted 63 mL/min/1.73m*2 Normal >60 [facility] Comment on above: Result Comment: Calc ulations of estimated GFR are performed using the 2020 CKD-EPI Study Refit equation without the race variable for the IDMS-Traceable creatinine methods.https://jasn.asnjournals.org/content// N.3061085669 Performed By: #### 2 432-2 ####JANETH Galo ([id number])[facility] ([facility])[address] [place] [address] Glucose [Mass/Vol] 118 mg/dL High 74-99 [facility] Comment on above: Performed By: #### 2 4321-2 ####JANETH GRAFF L ([id number])[facility] ([facility])[address] [place] [address] Potassium [Moles/Vol] 5.0 mmol/L Normal 3.5-5.3 [facility] Comment on above: Performed By: #### 2 4321-2 ####JANETH GRAFF L ([id number])[facility] ([facility])[address] [place] [address] Sodium [Moles/Vol] 134 mmol/L Low 136-145 [facility] Comment on above: Performed By: #### 2 4321-2 ####JANETH Galo ([id number])[facility] ([facility])[address] [place] [address] Urea nitrogen [Mass/Vol] 23 mg/dL Normal 6-23 [facility] Comment on above: Performed By: #### 2 4321-2 ####JANETH Galo ([id number])[facility] ([facility])[address] [place] [address] Anion gap [Moles/Vol] 13 mmol/L 10 - 2 0 mmol/L [facility] Calcium [Mass/Vol] 8.7 mg/dL 8.6 - 10. 6 mg/dL [facility] Chloride [Moles/Vol] 101 mmol/L 98 - 10 7 mmol/L [facility] CO2 [Moles/Vol] 24 mmol/L 21 - 32 mmol/L [facility] Creatinine [Mass/Vol] 1.33 mg/dL High 0.50 - 1.05 mg/dL [facility] GFR/1.73 sq M.predicted among non-blacks MDRD (S/P/Bld) [Vol rate/Area] 48 mL/min/{1.73_m2} Low - PINF [facility] Comment on above: Calculations of bill mated GFR are performed using the 2020 CKD-EPI Study Refit equation without the race variable for the IDMS-Traceable creatinine methods. https://jasn.asnjournals.org/content//ASN.674531 0152 Glucose [Mass/Vol] 93 mg/dL 74 - 99 mg/dL [facility] Interpretation and review of laboratory results Abnormal [facility] Potassium [Moles/Vol] 4.4 mmol/L 3.5 - 5.3 mmol/L [facility] Sodium [Moles/Vol] 134 mmol/L Low 136 - 145 mmol/L [facility] Urea nitrogen [Mass/Vol] 32 mg/dL High 6 - 23 mg/dL [facility] Anion gap [Moles/Vol] 13 mmol/L Normal 10-20 [facility] Comment on above: Performed By: #### 2 4321-2 ####JANETH RANGELER L ([id number])[facility] ([facility])[address] [place] [address] Calcium [Mass/Vol] 8.7 mg/dL Normal 8.6-10.6 [facility] Comment on above: Performed By: #### 2 4321-2 ####JANETH CONNORMOTZER L ([id number])[facility] ([facility])[address] [place] [address] Chloride [Moles/Vol] 101 mmol/L Normal 98-107 [facility] Comment on above: Performed By: #### 2 4321-2 ####JANETH CONNORMOTZER L ([id number])[facility] ([facility])[address] [place] [address] CO2 [Moles/Vol] 24 mmol/L Normal 21-32 [facility] Comment on above: Performed By: #### 2 4321-2 ####JANETH GRAFF L ([id number])[facility] ([facility])[address] [place] [address] Creatinine [Mass/Vol] 1.33 mg/dL High 0.50-1.05 [facility] Comment on above: Performed By: #### 2 4321-2 ####JANETH CONNORMOTZER L ([id number])[facility] ([facility])[address] [place] [address] Glomerular filtration rate/1.73 sq M.predicted 48 mL/min/1.73m*2 Low >60 [facility] Comment on above: Result Comment: Calc ulations of estimated GFR are performed using the 2020 CKD-EPI Study Refit equation without the race variable for the IDMS-Traceable creatinine methods.https://jasn.asnjournals.org/content/early/ N.5071759202 Performed By: #### 2 4321-2 ####JANETH Galo ([id number])[facility] ([facility])[address] [place] [address] Glucose [Mass/Vol] 93 mg/dL Normal 74-99 [facility] Comment on above: Performed By: #### 2 4321-2 ####JANETH Galo ([id number])[facility] ([facility])[address] [place] [address] Potassium [Moles/Vol] 4.4 mmol/L Normal 3.5-5.3 [facility] Comment on above: Performed By: #### 2 4321-2 ####JANETH Galo ([id number])[facility] ([facility])[address] [place] [address] Sodium [Moles/Vol] 134 mmol/L Low 136-145 [facility] Comment on above: Performed By: #### 2 4321-2 ####JANETH Galo ([id number])[facility] ([facility])[address]121 [place] [address] Urea nitrogen [Mass/Vol] 32 mg/dL High 6-23 [facility] Comment on above: Performed By: #### 2 4321-2 ####JANETH Galo ([id number])[facility] ([facility])[address] [place] [address] C reactive proteinon 025 CRP [Mass/Vol] 20.33 mg/dL High <1.00 [facility] Comment on above: Performed By: #### 1 988-5 ####JANETH Galo (85661)[facility] ([facility])[address]90 [place] [address] C-reactive proteinon 025 CRP [Mass/Vol] 20.33 mg/dL High NINF - 1.00 mg/dL [facility] CBC panel Auto (Bld)on 03-26 Erythrocyte distribution width (RBC) [Ratio] 16.7 % High 11.5 - 14.5 % [facility] Hematocrit (Bld) [Volume fraction] 28.4 % Low 36.0 - 46.0 % [facility] Hemoglobin (Bld) [Mass/Vol] 8.8 g/dL Low 12.0 - 16.0 g/dL [facility] Interpretation and review of laboratory results Abnormal [facility] MCH (RBC) [Entitic mass] 27.1 pg 26.0 - 34.0 pg [facility] MCHC (RBC) [Mass/Vol] 31 g/dL Low 32.0 - 36.0 g/dL [facility] MCV (RBC) [Entitic vol] 87 fL 80 - 100 fL [facility] Nucleated RBC/100 WBC (Bld) [Ratio] 8.4 % High [facility] Platelets (Bld) [#/Vol] 315 10*3/uL [facility] RBC (Bld) [#/Vol] 3.25 10*6/uL Low [facility] WBC (Bld) [#/Vol] 19.6 10*3/uL High [facility] Erythrocyte distribution width (RBC) [Ratio] 16.7 % High 11.5-14.5 [facility] Comment on above: Performed By: #### 5 8410-2 ####JANETH Galo ([id number])[facility] ([facility])[address] [place] [address] Hematocrit (Bld) [Volume fraction] 28.4 % Low 36.0-46.0 [facility] Comment on above: Performed By: #### 5 8410-2 ####JANETH Galo ([id number])[facility] ([facility])[address] [place] [address] Hemoglobin (Bld) [Mass/Vol] 8.8 g/dL Low 12.0-16.0 [facility] Comment on above: Performed By: #### 5 8410-2 ####JANETH Galo (08241)[facility] ([facility])[address]78 [place] [address] MCH (RBC) [Entitic mass] 27.1 pg Normal 26.0-34.0 [facility] Comment on above: Performed By: #### 5 8410-2 ####JANETH Galo ([id number])[facility] ([facility])[address] [place] [address] MCHC (RBC) [Mass/Vol] 31.0 g/dL Low 32.0-36.0 [facility] Comment on above: Performed By: #### 5 8410-2 ####JANETH Galo (20915)[facility] ([facility])[address]356 [place] [address] MCV (RBC) [Entitic vol] 87 fL Normal 80-100 [facility] Comment on above: Performed By: #### 5 8410-2 ####JANETH Galo ([id number])[facility] ([facility])[address] [place] [address] Nucleated RBC/100 WBC (Bld) [Ratio] 8.4 /100 WBCs High 0.0-0.0 [facility] Comment on above: Performed By: #### 5 8410-2 ####JANETH Galo ([id number])[facility] ([facility])[address]316 [place] [address] Platelets (Bld) [#/Vol] 315 x10*3/uL Normal 150-450 [facility] Comment on above: Performed By: #### 5 8410-2 ####JANETH Galo ([id number])[facility] ([facility])[address]78 [place] [address] RBC (Bld) [#/Vol] 3.25 x10*6/uL Low 4.00-5.20 [facility] Comment on above: Performed By: #### 5 8410-2 ####JANETH Galo ([id number])[facility] ([facility])[address]37 [place] [address] WBC (Bld) [#/Vol] 19.6 x10*3/uL High 4.4-11.3 [facility] Comment on above: Performed By: #### 5 8410-2 ####JANETH Galo (90154)[facility] ([facility])[address]22 [place] [address] Erythrocyte distribution width (RBC) [Ratio] 16.3 % High 11.5 - 14.5 % [facility] Hematocrit (Bld) [Volume fraction] 29.6 % Low 36.0 - 46.0 % [facility] Hemoglobin (Bld) [Mass/Vol] 8.9 g/dL Low 12.0 - 16.0 g/dL [facility] Interpretation and review of laboratory results Abnormal [facility] MCH (RBC) [Entitic mass] 26.9 pg 26.0 - 34.0 pg [facility] MCHC (RBC) [Mass/Vol] 30.1 g/dL Low 32.0 - 36.0 g/dL [facility] MCV (RBC) [Entitic vol] 89 fL 80 - 100 fL [facility] Nucleated RBC/100 WBC (Bld) [Ratio] 5.7 % High [facility] Platelets (Bld) [#/Vol] 307 10*3/uL [facility] RBC (Bld) [#/Vol] 3.31 10*6/uL Low [facility] WBC (Bld) [#/Vol] 20.1 10*3/uL [facility] Erythrocyte distribution width (RBC) [Ratio] 16.3 % High 11.5-14.5 [facility] Comment on above: Performed By: #### 5 8410-2 ####JANETH Galo ([id number])[facility] ([facility])[address] [place] [address] Hematocrit (Bld) [Volume fraction] 29.6 % Low 36.0-46.0 [facility] Comment on above: Performed By: #### 5 8410-2 ####JANETH Galo (69284)[facility] ([facility])[address]41 [place] [address] Hemoglobin (Bld) [Mass/Vol] 8.9 g/dL Low 12.0-16.0 [facility] Comment on above: Performed By: #### 5 8410-2 ####JANETH Galo (70387)[facility] ([facility])[address]51 [place] [address] MCH (RBC) [Entitic mass] 26.9 pg Normal 26.0-34.0 [facility] Comment on above: Performed By: #### 5 8410-2 ####JANETH Galo (19430)[facility] ([facility])[address]232 [place] [address] MCHC (RBC) [Mass/Vol] 30.1 g/dL Low 32.0-36.0 [facility] Comment on above: Performed By: #### 5 8410-2 ####JANETH Galo (58926)[facility] ([facility])[address]178 [place] [address] MCV (RBC) [Entitic vol] 89 fL Normal 80-100 [facility] Comment on above: Performed By: #### 5 8410-2 ####JANETH Galo (05399)[facility] ([facility])26784 [place] [address] Nucleated RBC/100 WBC (Bld) [Ratio] 5.7 /100 WBCs High 0.0-0.0 [facility] Comment on above: Performed By: #### 5 8410-2 ####JANETH Galo (67638)[facility] ([facility])[address]379 [place] [address] Platelets (Bld) [#/Vol] 307 x10*3/uL Normal 150-450 [facility] Comment on above: Performed By: #### 5 8410-2 ####JANETH Galo (67903)[facility] ([facility])[address]236 [place] [address] RBC (Bld) [#/Vol] 3.31 x10*6/uL Low 4.00-5.20 [facility] Comment on above: Performed By: #### 5 8410-2 ####JANETH HARRYSARITA L ([id number])[facility] ([facility])[address] [place] [address] WBC (Bld) [#/Vol] 20.1 x10*3/uL High 4.4-11.3 [facility] Comment on above: Performed By: #### 5 8410-2 ####JANETH HARRYPIEDADER L ([id number])[facility] ([facility])[address]286 [place] [address] CRP [Mass/Vol]on 03-26-2024 Interpretation and review of laboratory results Abnormal [facility] XR Chest Single viewon 03-26 1. No evidence of pneumothorax status post left subclavian approach central venous catheter placement. I personally reviewed the images/study and I agree with the findings as stated by Nereyda Das MD, PGY-2 this study was interpreted at [place], [place]. 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 COMPARISON: Chest x-ray from 03/11/24 ACCESSION NUMBER(S): [id number] ORDERING CLINICIAN: CLARK WALTERS FINDINGS: AP radiograph [...] MD, PGY-2 this study was interpreted at [facility], [place], [place]. MACRO: None Signed by: Osmel Viera 03/26/2024 10:42 AM Dictation workstation: [id number] [facility] Work Phone: XR Chest Single viewOrdered By: Osmel Viera on 03-26-2024 [facility] Work Phone: Bacteria identifiedon 2024 Bacteria identified Cx Nom (Unsp spec) Abnormal [facility] Comment on above: Performed By: #### 6 463-4 ####JANETH Galo ([id number])[facility] ([facility])[address] [place] [address] Basic metabolic 2000 panelon 03-25-2024 Anion gap [Moles/Vol] 13 mmol/L 10 - 2 0 mmol/L [facility] Calcium [Mass/Vol] 8.7 mg/dL 8.6 - 10. 6 mg/dL [facility] Chloride [Moles/Vol] 103 mmol/L 98 - 10 7 mmol/L [facility] CO2 [Moles/Vol] 24 mmol/L 21 - 32 mmol/L [facility] Creatinine [Mass/Vol] 1.62 mg/dL High 0.50 - 1.05 mg/dL [facility] GFR/1.73 sq M.predicted among non-blacks MDRD (S/P/Bld) [Vol rate/Area] 38 mL/min/{1.73_m2} Low - PINF [facility] Comment on above: Calculations of bill mated GFR are performed using the 2020 CKD-EPI Study Refit equation without the race variable for the IDMS-Traceable creatinine methods. https://jasn.asnjournals.org/content//ASN.660805 2161 Glucose [Mass/Vol] 106 mg/dL High 74 - 99 mg/dL [facility] Potassium [Moles/Vol] 5.2 mmol/L 3.5 - 5.3 mmol/L [facility] Sodium [Moles/Vol] 135 mmol/L Low 136 - 145 mmol/L [facility] Urea nitrogen [Mass/Vol] 34 mg/dL High 6 - 23 mg/dL [facility] Anion gap [Moles/Vol] 13 mmol/L Normal 10-20 [facility] Comment on above: Performed By: #### 2 4321-2 ####JANETH Galo ([id number])[facility] ([facility])[address] [place] [address] Calcium [Mass/Vol] 8.7 mg/dL Normal 8.6-10.6 [facility] Comment on above: Performed By: #### 2 4321-2 ####JANETH Galo ([id number])[facility] ([facility])[address] [place] [address] Chloride [Moles/Vol] 103 mmol/L Normal 98-107 [facility] Comment on above: Performed By: #### 2 4321-2 ####JANETH GRAFF L ([id number])[facility] ([facility])[address] [place] [address] CO2 [Moles/Vol] 24 mmol/L Normal 21-32 [facility] Comment on above: Performed By: #### 2 4321-2 ####JANETH Galo ([id number])[facility] ([facility])[address] [place] [address] Creatinine [Mass/Vol] 1.62 mg/dL High 0.50-1.05 The [facility] Comment on above: Performed By: #### 2 4321-2 ####JANETH Galo ([id number])[facility] ([facility])[address] [place] [address] Glomerular filtration rate/1.73 sq M.predicted 38 mL/min/1.73m*2 Low >60 [facility] Comment on above: Result Comment: Calc ulations of estimated GFR are performed using the 2020 CKD-EPI Study Refit equation without the race variable for the IDMS-Traceable creatinine methods.https://jasn.asnjournals.org/content/early/ N.9179430343 Performed By: #### 2 4321-2 ####JANETH Galo ([id number])[facility] ([facility])[address] [place] [address] Glucose [Mass/Vol] 106 mg/dL High 74-99 [facility] Comment on above: Performed By: #### 2 4321-2 ####JANETH Galo ([id number])[facility] ([facility])[address] [place] [address] Potassium [Moles/Vol] 5.2 mmol/L Normal 3.5-5.3 [facility] Comment on above: Performed By: #### 2 4321-2 ####JANETH Galo ([id number])[facility] ([facility])[address] [place] [address] Sodium [Moles/Vol] 135 mmol/L Low 136-145 [facility] Comment on above: Performed By: #### 2 4321-2 ####JANETH Galo ([id number])[facility] ([facility])[address] [place] [address] Urea nitrogen [Mass/Vol] 34 mg/dL High 6-23 [facility] Comment on above: Performed By: #### 2 4321-2 ####JANETH Galo ([id number])[facility] ([facility])[address] [place] [address] Blood type and Indirect anti body screen panel (Bld)on 03-25-2024 ABO group Nom (Bld) A [facility] Blood group antibody screen Ql Negative [facility] D Ag Ql (Bld) Positive [facility] ABO group Nom (Bld) A Normal [facility] Comment on above: Performed By: #### 3 4532-2 ####JANETH Galo ([id number])[facility] ([facility])[address] [place] [address] Blood group antibody screen Ql Negative [facility] Comment on above: Performed By: #### 3 4532-2 ####JANETH Galo ([id number])[facility] ([facility])[address] [place], [place] [address] D Ag Ql (Bld) Positive [facility] Comment on above: Performed By: #### 3 4532-2 ####JANETH Galo ([id number])[facility] ([facility])[address] [place], [place] [address] CBC panel Auto (Bld)on 03-25 Erythrocyte distribution width (RBC) [Ratio] 15.8 % High 11.5 - 14.5 % [facility] Hematocrit (Bld) [Volume fraction] 25.9 % Low 36.0 - 46.0 % [facility] Hemoglobin (Bld) [Mass/Vol] 8.4 g/dL Low 12.0 - 16.0 g/dL [facility] Interpretation and review of laboratory results Abnormal [facility] MCH (RBC) [Entitic mass] 26.7 pg 26.0 - 34.0 pg [facility] MCHC (RBC) [Mass/Vol] 32.4 g/dL 32.0 - 36.0 g/dL [facility] MCV (RBC) [Entitic vol] 82 fL 80 - 100 fL [facility] Nucleated RBC/100 WBC (Bld) [Ratio] 4.6 % High [facility] Platelets (Bld) [#/Vol] 339 10*3/uL [facility] RBC (Bld) [#/Vol] 3.15 10*6/uL Low [facility] WBC (Bld) [#/Vol] 21.8 10*3/uL [place] [facility] [place]rythrocyte distribution width (RBC) [Ratio] 15.8 % High 11.5-14.5 [facility] Comment on above: Performed By: #### 5 8410-2 ####JANETH Galo ([id number])[facility] ([facility])[address] [place] [address] Hematocrit (Bld) [Volume fraction] 25.9 % Low 36.0-46.0 [facility] Comment on above: Performed By: #### 5 8410-2 ####JANETH Galo ([id number])[facility] ([facility])[address] [place] [address] Hemoglobin (Bld) [Mass/Vol] 8.4 g/dL Low 12.0-16.0 [facility] Comment on above: Performed By: #### 5 8410-2 ####JANETH Galo ([id number])[facility] ([facility])[address] [place] [address] MCH (RBC) [Entitic mass] 26.7 pg Normal 26.0-34.0 [facility] Comment on above: Performed By: #### 5 8410-2 ####JANETH Galo ([id number])[facility] ([facility])[address] [place] [address] MCHC (RBC) [Mass/Vol] 32.4 g/dL Normal 32.0-36.0 [facility] Comment on above: Performed By: #### 5 8410-2 ####JANETH Galo ([id number])[facility] ([facility])[address] [place] [address] MCV (RBC) [Entitic vol] 82 fL Normal 80-100 [facility] Comment on above: Performed By: #### 5 8410-2 ####JANETH Galo ([id number])[facility] ([facility])[address] [place] [address] Nucleated RBC/100 WBC (Bld) [Ratio] 4.6 /100 WBCs High 0.0-0.0 [facility] Comment on above: Performed By: #### 5 8410-2 ####JANETH Galo ([id number])[facility] ([facility])[address] [place] [address] Platelets (Bld) [#/Vol] 339 x10*3/uL Normal 150-450 [facility] Comment on above: Performed By: #### 5 8410-2 ####JANETH Galo ([id number])[facility] ([facility])[address] [place] [address] RBC (Bld) [#/Vol] 3.15 x10*6/uL Low 4.00-5.20 [facility] Comment on above: Performed By: #### 5 8410-2 ####JANETH Galo ([id number])[facility] ([facility])[address] [place] [address] WBC (Bld) [#/Vol] 21.8 x10*3/uL High 4.4-11.3 [facility] Comment on above: Performed By: #### 5 8410-2 ####JANETH Galo ([id number])[facility] ([facility])[address] [place] [address] Erythrocyte distribution width (RBC) [Ratio] 16.3 % High 11.5 - 14.5 % [facility] Hematocrit (Bld) [Volume fraction] 20.6 % Low 36.0 - 46.0 % [facility] Hemoglobin (Bld) [Mass/Vol] 6.3 g/dL Critically low 12.0 - 16.0 g/dL [facility] Interpretation and review of laboratory results Abnormal [facility] MCH (RBC) [Entitic mass] 25.7 pg Low 26.0 - 34.0 pg [facility] MCHC (RBC) [Mass/Vol] 30.6 g/dL Low 32.0 - 36.0 g/dL [facility] MCV (RBC) [Entitic vol] 84 fL 80 - 100 fL [facility] Nucleated RBC/100 WBC (Bld) [Ratio] 6.1 % High [facility] Platelets (Bld) [#/Vol] 387 10*3/uL [facility] RBC (Bld) [#/Vol] 2.45 10*6/uL Low [facility] WBC (Bld) [#/Vol] 18.4 10*3/uL High [facility] [place] Erythrocyte distribution width (RBC) [Ratio] 16.3 % High 11.5-14.5 [facility] Comment on above: Performed By: #### 5 8410-2 ####JANETH Galo ([id number])[facility] ([facility])[address] [place] [address] Hematocrit (Bld) [Volume fraction] 20.6 % Low 36.0-46.0 [facility] Comment on above: Performed By: #### 5 8410-2 ####JANETH Galo ([id number])[facility] ([facility])[address] [place] [address] Hemoglobin (Bld) [Mass/Vol] 6.3 g/dL Critically low 12.0-16.0 [facility] Comment on above: Performed By: #### 5 8410-2 ####JANETH Galo ([id number])[facility] ([facility])[address] [place] [address] MCH (RBC) [Entitic mass] 25.7 pg Low 26.0-34.0 [facility] Comment on above: Performed By: #### 5 8410-2 ####JANETH Galo ([id number])[facility] ([facility])[address] [place] [address] MCHC (RBC) [Mass/Vol] 30.6 g/dL Low 32.0-36.0 [facility] Comment on above: Performed By: #### 5 8410-2 ####JANETH Galo ([id number])[facility] ([facility])[address] [place] [address] MCV (RBC) [Entitic vol] 84 fL Normal 80-100 [facility] Comment on above: Performed By: #### 5 8410-2 ####JANETH Galo ([id number])[facility] ([facility])[address] [place] [address] Nucleated RBC/100 WBC (Bld) [Ratio] 6.1 /100 WBCs High 0.0-0.0 [facility] Comment on above: Performed By: #### 5 8410-2 ####JANETH Galo ([id number])[facility] ([facility])[address] [place] [address] Platelets (Bld) [#/Vol] 387 x10*3/uL Normal 150-450 [facility] Comment on above: Performed By: #### 5 8410-2 ####JANETH Galo ([id number])[facility] ([facility])[address] [place] [address] RBC (Bld) [#/Vol] 2.45 x10*6/uL Low 4.00-5.20 [facility] Comment on above: Performed By: #### 5 8410-2 ####JANETH Galo ([id number])[facility] ([facility])[address] [place] [address] WBC (Bld) [#/Vol] 18.4 x10*3/uL High 4.4-11.3 [facility] Comment on above: Performed By: #### 5 8410-2 ####JANETH Galo ([id number])[facility] ([facility])[address] [place] [address] Fungus identifiedon 03-25-19 25 Fungus identified Cx Nom (Unsp spec) Normal [facility] Comment on above: Performed By: #### 5 80-1 ####JANETH Galo ([id number])[facility] ([facility])[address] [place] [address] Gas and Carbon monoxide and Electrolytes panel (BldA)on 03-25-2024 Anion gap 4 (BldA) [Moles/Vol] 9 Low [facility] Base excess Calc (Bld) [Moles/Vol] -4.5000 mmol/L Low -2.0 - 3.0 mmol/L [facility] Calcium.ionized (BldA) [Moles/Vol] 1.09 mmol/L Low 1.10 - 1.33 mmol/L [facility] Chloride (BldA) [Moles/Vol] 111 mmol/L High 98 - 107 mmol/L [facility] CO2 (Bld) [Partial pressure] 40 mm[Hg] [facility] Glucose [Mass/Vol] 91 mg/dL 74 - 99 mg/dL [facility] HCO3 (Bld) [Moles/Vol] 21.1 mmol/L Low 22.0 - 26.0 mmol/L [facility] Hematocrit Est (Bld) [Volume fraction] 22 % Low 36.0 - 46.0 % [facility] Hemoglobin (Bld) [Mass/Vol] 7.3 g/dL Low 12.0 - 16.0 g/dL [facility] Interpretation and review of laboratory results Abnormal [facility] Lactate (BldA) [Moles/Vol] 0.7 mmol/L 0.4 - 2.0 mmol/L [facility] Oxygen (Bld) [Partial pressure] 89 mm[Hg] [facility] Oxyhemoglobin (BldA) [Mass fraction] 95.8 % 94.0 - 98.0 % [facility] pH (Bld) 7.33 [pH] Low 7.38 - 7.42 pH [facility] Potassium (BldA) [Moles/Vol] 4.9 mmol/L 3.5 - 5.3 mmol/L [facility] Sodium (BldA) [Moles/Vol] 136 mmol/L 136 - 145 mmol/L [facility] Anion gap 4 (BldA) [Moles/Vol] 9 mmo/L Low 10-25 [facility] Comment on above: Performed By: #### 9 3685-6 ####JANETH Galo ([id number])[facility] ([facility])[address] [place] [address] Base excess Calc (Bld) [Moles/Vol] -4.5000 mmol/L Low -2.0-3.0 [facility] Comment on above: Performed By: #### 9 3685-6 ####JANETH Galo (43584)[facility] ([facility])[address] [place] [address] Calcium.ionized (BldA) [Moles/Vol] 1.09 mmol/L Low 1.10-1.33 [facility] Comment on above: Performed By: #### 9 3685-6 ####JANETH Galo ([id number])[facility] ([facility])[address] [place] [address] Chloride (BldA) [Moles/Vol] 111 mmol/L High 98-107 [facility] Comment on above: Performed By: #### 9 3685-6 ####JANETH Galo ([id number])[facility] ([facility])[address] [place] [address] CO2 (Bld) [Partial pressure] 40 mm Hg Normal 38-42 [facility] Comment on above: Performed By: #### 9 3685-6 ####JANETH Galo ([id number])[facility] ([facility])[address]87 [place] [address] Glucose [Mass/Vol] 91 mg/dL Normal 74-99 [facility] Comment on above: Performed By: #### 9 3685-6 ####JANETH Galo ([id number])[facility] ([facility])[address] [place] [address] HCO3 (Bld) [Moles/Vol] 21.1 mmol/L Low 22.0-26.0 [facility] Comment on above: Performed By: #### 9 3685-6 ####JANETH Galo ([id number])[facility] ([facility])[address] [place] [address] Hematocrit Est (Bld) [Volume fraction] 22.0 % Low 36.0-46.0 [facility] Comment on above: Performed By: #### 9 3685-6 ####JANETH Galo ([id number])[facility] ([facility])[address] [place] [address] Hemoglobin (Bld) [Mass/Vol] 7.3 g/dL Low 12.0-16.0 [facility] Comment on above: Performed By: #### 9 3685-6 ####JANETH Galo ([id number])[facility] ([facility])[address] [place] [address] Lactate (BldA) [Moles/Vol] 0.7 mmol/L Normal 0.4-2.0 [facility] Comment on above: Performed By: #### 9 3685-6 ####JANETH Galo (78296)[facility] ([facility])[address] [place] [address] Oxygen (Bld) [Partial pressure] 89 mm Hg Normal 85-95 [facility] Comment on above: Performed By: #### 9 3685-6 ####JANETH Galo ([id number])[facility] ([facility])[address] [place] [address] Oxyhemoglobin (BldA) [Mass fraction] 95.8 % Normal 94.0-98.0 [facility] Comment on above: Performed By: #### 9 3685-6 ####JANETH Galo ([id number])[facility] ([facility])[address] [place] [address] pH (Bld) 7.33 [pH] Low 7.38-7.42 [facility] Comment on above: Performed By: #### 9 3685-6 ####JANETH Galo ([id number])[facility] ([facility])[address] [place] [address] Potassium (BldA) [Moles/Vol] 4.9 mmol/L Normal 3.5-5.3 [facility] Comment on above: Performed By: #### 9 3685-6 ####JANETH Galo ([id number])[facility] ([facility])[address]56 [place] [address] Sodium (BldA) [Moles/Vol] 136 mmol/L Normal 136-145 [facility] Comment on above: Performed By: #### 9 3685-6 ####JANETH Galo ([id number])[facility] ([facility])[address] [place] [address] Anion gap 4 (BldA) [Moles/Vol] 10 [facility] Base excess Calc (Bld) [Moles/Vol] -1.7000 mmol/L -2.0 - 3.0 mmol/L [facility] Calcium.ionized (BldA) [Moles/Vol] 1.12 mmol/L 1.10 - 1.33 mmol/L [facility] Chloride (BldA) [Moles/Vol] 107 mmol/L 98 - 107 mmol/L [facility] CO2 (Bld) [Partial pressure] 37 mm[Hg] Low [facility] Glucose [Mass/Vol] 119 mg/dL High 74 - 99 mg/dL [facility] HCO3 (Bld) [Moles/Vol] 22.9 mmol/L 22.0 - 26.0 mmol/L [facility] Hematocrit Est (Bld) [Volume fraction] 27 % Low 36.0 - 46.0 % [facility] Hemoglobin (Bld) [Mass/Vol] 9 g/dL Low 12.0 - 16.0 g/dL [facility] Inhaled oxygen concentration 42 % [facility] Interpretation and review of laboratory results Abnormal [facility] Lactate (BldA) [Moles/Vol] 1.3 mmol/L 0.4 - 2.0 mmol/L [facility] Oxygen (Bld) [Partial pressure] 83 mm[Hg] Low [facility] Oxyhemoglobin (BldA) [Mass fraction] 94.9 % 94.0 - 98.0 % [facility] pH (Bld) 7.4 [pH] 7.38 - 7.42 pH [facility] Potassium (BldA) [Moles/Vol] 5.7 mmol/L High 3.5 - 5.3 mmol/L [facility] Sodium (BldA) [Moles/Vol] 134 mmol/L Low 136 - 145 mmol/L [facility] Anion gap 4 (BldA) [Moles/Vol] 10 mmo/L Normal 10-25 [facility] Comment on above: Performed By: #### 9 3685-6 ####JANETH Galo ([id number])[facility] ([facility])[address] [place] [address] Base excess Calc (Bld) [Moles/Vol] -1.7000 mmol/L Normal -2.0-3.0 [facility] Comment on above: Performed By: #### 9 3685-6 ####JANETH Glao ([id number])[facility] ([facility])[address] [place] [address] Calcium.ionized (BldA) [Moles/Vol] 1.12 mmol/L Normal 1.10-1.33 [facility] Comment on above: Performed By: #### 9 3685-6 ####JANETH Galo ([id number])[facility] ([facility])[address] [place] [address] Chloride (BldA) [Moles/Vol] 107 mmol/L Normal 98-107 [facility] Comment on above: Performed By: #### 9 3685-6 ####JANETH Galo (77129)[facility] ([facility])[address] [place] [address] CO2 (Bld) [Partial pressure] 37 mm Hg Low 38-42 [facility] Comment on above: Performed By: #### 9 3685-6 ####JANETH Galo ([id number])[facility] ([facility])[address] [place] [address] Glucose [Mass/Vol] 119 mg/dL High 74-99 [facility] Comment on above: Performed By: #### 9 3685-6 ####JANETH Galo ([id number])[facility] ([facility])[address]153 [place] [address] HCO3 (Bld) [Moles/Vol] 22.9 mmol/L Normal 22.0-26.0 [facility] Comment on above: Performed By: #### 9 3685-6 ####JANETH Galo ([id number])[facility] ([facility])[address] [place] [address] Hematocrit Est (Bld) [Volume fraction] 27.0 % Low 36.0-46.0 [facility] Comment on above: Performed By: #### 9 3685-6 ####JANETH Galo ([id number])[facility] ([facility])[address] [place] [address] Hemoglobin (Bld) [Mass/Vol] 9.0 g/dL Low 12.0-16.0 [facility] Comment on above: Performed By: #### 9 3685-6 ####JANETH Galo ([id number])[facility] ([facility])[address]28 [place] [address] Inhaled oxygen concentration 42 % Normal [facility] Comment on above: Performed By: #### 9 3685-6 ####JAENTH Gaol ([id number])[facility] ([facility])[address]700 [place] [address] Lactate (BldA) [Moles/Vol] 1.3 mmol/L Normal 0.4-2.0 [facility] Comment on above: Performed By: #### 9 3685-6 ####JANETH Galo ([id number])[facility] ([facility])[address] [place] [address] Oxygen (Bld) [Partial pressure] 83 mm Hg Low 85-95 [facility] Comment on above: Performed By: #### 9 3685-6 ####JANETH Galo ([id number])[facility] ([facility])[address] [place] [address] Oxyhemoglobin (BldA) [Mass fraction] 94.9 % Normal 94.0-98.0 [facility] Comment on above: Performed By: #### 9 3685-6 ####JANETH Galo ([id number])[facility] ([facility])[address] [place] [address] pH (Bld) 7.40 [pH] Normal 7.38-7.42 [facility] Comment on above: Performed By: #### 9 3685-6 ####JANETH Galo (60563)[facility] ([facility])[address] [place] [address] Potassium (BldA) [Moles/Vol] 5.7 mmol/L High 3.5-5.3 [facility] Comment on above: Performed By: #### 9 3685-6 ####JANETH Galo ([id number])[facility] ([facility])[address] [place] [address] Sodium (BldA) [Moles/Vol] 134 mmol/L Low 136-145 [facility] Comment on above: Performed By: #### 9 3685-6 ####JANETH Galo ([id number])[facility] ([facility])[address] [place] [address] Anion gap 4 (BldA) [Moles/Vol] 4 Low [facility] Base excess Calc (Bld) [Moles/Vol] -2.1000 mmol/L Low -2.0 - 3.0 mmol/L [facility] Calcium.ionized (BldA) [Moles/Vol] 1.07 mmol/L Low 1.10 - 1.33 mmol/L [facility] Chloride (BldA) [Moles/Vol] 109 mmol/L High 98 - 107 mmol/L [facility] CO2 (Bld) [Partial pressure] 35 mm[Hg] Low [facility] Glucose [Mass/Vol] 142 mg/dL High 74 - 99 mg/dL [facility] HCO3 (Bld) [Moles/Vol] 22.2 mmol/L 22.0 - 26.0 mmol/L [facility] Hematocrit Est (Bld) [Volume fraction] 25 % Low 36.0 - 46.0 % [facility] Hemoglobin (Bld) [Mass/Vol] 8.3 g/dL Low 12.0 - 16.0 g/dL [facility] Inhaled oxygen concentration 42 % [facility] Interpretation and review of laboratory results Abnormal [facility] Lactate (BldA) [Moles/Vol] 1.6 mmol/L 0.4 - 2.0 mmol/L [facility] Oxygen (Bld) [Partial pressure] 132 mm[Hg] High [facility] Oxyhemoglobin (BldA) [Mass fraction] 95.3 % 94.0 - 98.0 % [facility] pH (Bld) 7.41 [pH] 7.38 - 7.42 pH [facility] Potassium (BldA) [Moles/Vol] 5.9 mmol/L High 3.5 - 5.3 mmol/L [facility] Sodium (BldA) [Moles/Vol] 129 mmol/L Low 136 - 145 mmol/L [facility] Anion gap 4 (BldA) [Moles/Vol] 4 mmo/L Low 10-25 [facility] Comment on above: Performed By: #### 9 3685-6 ####JANETH Galo ([id number])[facility] ([facility])[address] [place] [address] Base excess Calc (Bld) [Moles/Vol] -2.1000 mmol/L Low -2.0-3.0 [facility] Comment on above: Performed By: #### 9 3685-6 ####JANETH Galo ([id number])[facility] ([facility])[id number] [place] [address] Calcium.ionized (BldA) [Moles/Vol] 1.07 mmol/L Low 1.10-1.33 [facility] Comment on above: Performed By: #### 9 3685-6 ####JANETH Galo ([id number])[facility] ([facility])[address] [place] [address] Chloride (BldA) [Moles/Vol] 109 mmol/L High 98-107 [facility] Comment on above: Performed By: #### 9 3685-6 ####JANETH Galo ([id number])[facility] ([facility])[id number] [place] [address] CO2 (Bld) [Partial pressure] 35 mm Hg Low 38-42 [facility] Comment on above: Performed By: #### 9 3685-6 ####JANETH Galo ([id number])[facility] ([facility])[id number] [place] [address]92 Glucose [Mass/Vol] 142 mg/dL High 74-99 [facility] Comment on above: Performed By: #### 9 3685-6 ####JANETH Galo ([id number])[facility] ([facility])[address] [place] [address] HCO3 (Bld) [Moles/Vol] 22.2 mmol/L Normal 22.0-26.0 [facility] Comment on above: Performed By: #### 9 4835-6 ####JANETH Galo ([id number])[facility] ([facility])[id number] [place] [address] Hematocrit Est (Bld) [Volume fraction] 25.0 % Low 36.0-46.0 [facility] Comment on above: Performed By: #### 9 8765-6 ####JANETH Galo ([id number])[facility] ([facility])[id number] [place] [address] Hemoglobin (Bld) [Mass/Vol] 8.3 g/dL Low 12.0-16.0 [facility] Comment on above: Performed By: #### 9 3685-6 ####JANETH Galo ([id number])[facility] ([facility])[address] [place] [address] Inhaled oxygen concentration 42 % Normal [facility] Comment on above: Performed By: #### 9 3685-6 ####JANETH Galo ([id number])[facility] ([facility])[address] [place] [address] Lactate (BldA) [Moles/Vol] 1.6 mmol/L Normal 0.4-2.0 [facility] Comment on above: Performed By: #### 9 3685-6 ####JANETH Glao ([id number])[facility] ([facility])[address] [place] [address] Oxygen (Bld) [Partial pressure] 132 mm Hg High 85-95 [facility] Comment on above: Performed By: #### 9 3685-6 ####JANETH Galo ([id number])[facility] ([facility])[address] [place] [address] Oxyhemoglobin (BldA) [Mass fraction] 95.3 % Normal 94.0-98.0 [facility] Comment on above: Performed By: #### 9 3685-6 ####JANETH Galo ([id number])[facility] ([facility])[address] [place] [address] pH (Bld) 7.41 [pH] Normal 7.38-7.42 [facility] Comment on above: Performed By: #### 9 3685-6 ####JANETH Galo ([id number])[facility] ([facility])[address] [place] [address] Potassium (BldA) [Moles/Vol] 5.9 mmol/L High 3.5-5.3 [facility] Comment on above: Performed By: #### 9 3685-6 ####JANETH Galo ([id number])[facility] ([facility])[address]50 [place] [address] Sodium (BldA) [Moles/Vol] 129 mmol/L Low 136-145 [facility] Comment on above: Performed By: #### 9 3685-6 ####JANETH Galo ([id number])[facility] ([facility])[address] [place] [address] CO2 (Bld) [Partial pressure] 38 mm Hg Normal 38-42 [facility] Comment on above: Performed By: #### 9 3685-6 ####JANETH Galo ([id number])[facility] ([facility])[address] [place] [address] Hematocrit Est (Bld) [Volume fraction] 20.0 % Low 36.0-46.0 [facility] Comment on above: Performed By: #### 9 3685-6 ####JANETH Galo ([id number])[facility] ([facility])[address]298 [place] [address] Oxygen (Bld) [Partial pressure] 122 mm Hg High 85-95 [facility] Comment on above: Performed By: #### 9 3685-6 ####JANETH Galo ([id number])[facility] ([facility])[address] [place] [address] Anion gap 4 (BldA) [Moles/Vol] 12 [facility] Base excess Calc (Bld) [Moles/Vol] -1.9000 mmol/L -2.0 - 3.0 mmol/L [facility] Calcium.ionized (BldA) [Moles/Vol] 1.16 mmol/L 1.10 - 1.33 mmol/L [facility] Chloride (BldA) [Moles/Vol] 104 mmol/L 98 - 107 mmol/L [facility] CO2 (Bld) [Partial pressure] 39 mm[Hg] [facility] Glucose [Mass/Vol] 136 mg/dL High 74 - 99 mg/dL [facility] HCO3 (Bld) [Moles/Vol] 23.1 mmol/L 22.0 - 26.0 mmol/L [facility] Hematocrit Est (Bld) [Volume fraction] 17 % Low 36.0 - 46.0 % [facility] Hemoglobin (Bld) [Mass/Vol] 5.6 g/dL Critically low 12.0 - 16.0 g/dL [facility] Inhaled oxygen concentration 42 % [facility] Interpretation and review of laboratory results Abnormal [facility] Lactate (BldA) [Moles/Vol] 1.4 mmol/L 0.4 - 2.0 mmol/L [facility] Oxygen (Bld) [Partial pressure] 132 mm[Hg] High [facility] Oxyhemoglobin (BldA) [Mass fraction] 95.5 % 94.0 - 98.0 % [facility] pH (Bld) 7.38 [pH] Normal 7.38-7.42 [facility] Comment on above: Performed By: #### 9 3685-6 ####JANETH Galo ([id number])[facility] ([facility])[address] [place] [address] Potassium (BldA) [Moles/Vol] 5.8 mmol/L High 3.5 - 5.3 mmol/L [facility] Sodium (BldA) [Moles/Vol] 133 mmol/L Low 136-145 [facility] Comment on above: Performed By: #### 9 3685-6 ####JANETH Galo ([id number])[facility] ([facility])[address] [place], [place] [id number] [facility] Anion gap 4 (BldA) [Moles/Vol] 12 mmo/L Normal 10-25 [facility] Comment on above: Performed By: #### 9 3685-6 ####JANETH Galo ([id number])[facility] ([facility])[id number] [place], [place] [address] Base excess Calc (Bld) [Moles/Vol] -1.9000 mmol/L Normal -2.0-3.0 [facility] Comment on above: Performed By: #### 9 3685-6 ####JANETH Galo ([id number])[facility] ([facility])[address] [place] [address] Calcium.ionized (BldA) [Moles/Vol] 1.16 mmol/L Normal 1.10-1.33 [facility] Comment on above: Performed By: #### 9 3685-6 ####JANETH Galo ([id number])[facility] ([facility])[address]47 [place] [address] Chloride (BldA) [Moles/Vol] 104 mmol/L Normal 98-107 [facility] Comment on above: Performed By: #### 9 3685-6 ####JANETH Galo ([id number])[facility] ([facility])[address]34 [place] [address] CO2 (Bld) [Partial pressure] 39 mm Hg Normal 38-42 [facility] Comment on above: Performed By: #### 9 3685-6 ####JANETH Galo ([id number])[facility] ([facility])[address]417 [place] [address] Glucose [Mass/Vol] 136 mg/dL High 74-99 [facility] Comment on above: Performed By: #### 9 4815-6 ####JANETH Galo ([id number])[facility] ([facility])[address] [place] [address] HCO3 (Bld) [Moles/Vol] 23.1 mmol/L Normal 22.0-26.0 [facility] Comment on above: Performed By: #### 9 3685-6 ####JANETH Galo ([id number])[facility] ([facility])[address] [place] [address] Hematocrit Est (Bld) [Volume fraction] 17.0 % Low 36.0-46.0 [facility] Comment on above: Performed By: #### 9 3685-6 ####JANETH Galo ([id number])[facility] ([facility])[address] [place] [address] Hemoglobin (Bld) [Mass/Vol] 5.6 g/dL Critically low 12.0-16.0 [facility] Comment on above: Performed By: #### 9 3685-6 ####JANETH Galo ([id number])[facility] ([facility])[address] [place] [address] Inhaled oxygen concentration 42 % Normal [facility] Comment on above: Performed By: #### 9 3685-6 ####JANETH Galo ([id number])[facility] ([facility])[address] [place] [address] Lactate (BldA) [Moles/Vol] 1.4 mmol/L Normal 0.4-2.0 [facility] Comment on above: Performed By: #### 9 5015-6 ####JANETH Galo ([id number])[facility] ([facility])[address] [place] [address] Oxygen (Bld) [Partial pressure] 132 mm Hg High 85-95 [facility] Comment on above: Performed By: #### 9 2445-6 ####JANETH Galo ([id number])[facility] ([facility])[address] [place] [address] Oxyhemoglobin (BldA) [Mass fraction] 95.5 % Normal 94.0-98.0 [facility] Comment on above: Performed By: #### 9 3685-6 ####JANETH Galo (85051)[facility] ([facility])[address] [place] [address] pH (Bld) 7.38 [pH] Normal 7.38-7.42 [facility] Comment on above: Performed By: #### 9 3685-6 ####JANETH GRAFF L ([id number])[facility] ([facility])[address] [place] [address] Potassium (BldA) [Moles/Vol] 5.8 mmol/L High 3.5-5.3 [facility] Comment on above: Performed By: #### 9 1315-6 ####JANETH Galo ([id number])[facility] ([facility])[address] [place] [address] Sodium (BldA) [Moles/Vol] 133 mmol/L Low 136-145 [facility] Comment on above: Performed By: #### 9 3685-6 ####JANETH Galo ([id number])[facility] ([facility])[address]277 [place] [address] Anion gap 4 (BldA) [Moles/Vol] 10 [facility] Base excess Calc (Bld) [Moles/Vol] -3.6000 mmol/L Low -2.0 - 3.0 mmol/L [facility] Calcium.ionized (BldA) [Moles/Vol] 1.19 mmol/L 1.10 - 1.33 mmol/L [facility] Chloride (BldA) [Moles/Vol] 103 mmol/L 98 - 107 mmol/L [facility] CO2 (Bld) [Partial pressure] 43 mm[Hg] High [facility] Glucose [Mass/Vol] 184 mg/dL High 74 - 99 mg/dL [facility] HCO3 (Bld) [Moles/Vol] 22.2 mmol/L 22.0 - 26.0 mmol/L [facility] Hematocrit Est (Bld) [Volume fraction] 21 % Low 36.0 - 46.0 % [facility] Hemoglobin (Bld) [Mass/Vol] 7 g/dL Low 12.0 - 16.0 g/dL [facility] Inhaled oxygen concentration 42 % [facility] Interpretation and review of laboratory results Abnormal [facility] Lactate (BldA) [Moles/Vol] 1.3 mmol/L Normal 0.4-2.0 [facility] Comment on above: Performed By: #### 9 3685-6 ####JANETH Galo ([id number])[facility] ([facility])[address] [place] [address] Oxygen (Bld) [Partial pressure] 141 mm[Hg] High [facility] Oxyhemoglobin (BldA) [Mass fraction] 95 % 94.0 - 98.0 % [facility] pH (Bld) 7.32 [pH] Low 7.38 - 7.42 pH [facility] Potassium (BldA) [Moles/Vol] 5.7 mmol/L High 3.5 - 5.3 mmol/L [facility] Sodium (BldA) [Moles/Vol] 129 mmol/L Low 136 - 145 mmol/L [facility] Anion gap 4 (BldA) [Moles/Vol] 13 [facility] Base excess Calc (Bld) [Moles/Vol] -3.6000 mmol/L Low -2.0 - 3.0 mmol/L [facility] Calcium.ionized (BldA) [Moles/Vol] 1.2 mmol/L 1.10 - 1.33 mmol/L [facility] Chloride (BldA) [Moles/Vol] 101 mmol/L 98 - 107 mmol/L [facility] CO2 (Bld) [Partial pressure] 46 mm[Hg] High [facility] Glucose [Mass/Vol] 158 mg/dL High 74 - 99 mg/dL [facility] HCO3 (Bld) [Moles/Vol] 22.6 mmol/L 22.0 - 26.0 mmol/L [facility] Hematocrit Est (Bld) [Volume fraction] 23 % Low 36.0 - 46.0 % [facility] Hemoglobin (Bld) [Mass/Vol] 7.5 g/dL Low 12.0 - 16.0 g/dL [facility] Inhaled oxygen concentration 42 % Normal [facility] Comment on above: Performed By: #### 9 3685-6 ####JANETH Galo ([id number])[facility] ([facility])[address] [place] [address] Interpretation and review of laboratory results Abnormal [facility] Lactate (BldA) [Moles/Vol] 1.6 mmol/L 0.4 - 2.0 mmol/L [facility] Oxygen (Bld) [Partial pressure] 109 mm[Hg] High [facility] Oxyhemoglobin (BldA) [Mass fraction] 94.7 % 94.0 - 98.0 % [facility] pH (Bld) 7.3 [pH] Low 7.38 - 7.42 pH [facility] Potassium (BldA) [Moles/Vol] 6.2 mmol/L Critically high 3.5 - 5.3 mmol/L [facility] Sodium (BldA) [Moles/Vol] 130 mmol/L Low 136 - 145 mmol/L [facility] Anion gap 4 (BldA) [Moles/Vol] 10 mmo/L Normal 10-25 [facility] Comment on above: Performed By: #### 9 3685-6 ####JANETH Galo ([id number])[facility] ([facility])[address] [place] [address] Base excess Calc (Bld) [Moles/Vol] -3.6000 mmol/L Low -2.0-3.0 [facility] Comment on above: Performed By: #### 9 3685-6 ####JANETH Galo ([id number])[facility] ([facility])[address] [place] [address] Calcium.ionized (BldA) [Moles/Vol] 1.19 mmol/L Normal 1.10-1.33 [facility] Comment on above: Performed By: #### 9 3685-6 ####JANETH Galo ([id number])[facility] ([facility])[address] [place] [address] Chloride (BldA) [Moles/Vol] 103 mmol/L Normal 98-107 [facility] Comment on above: Performed By: #### 9 3685-6 ####JANETH Galo ([id number])[facility] ([facility])[address]367 [place] [address] CO2 (Bld) [Partial pressure] 43 mm Hg High 38-42 [facility] Comment on above: Performed By: #### 9 3685-6 ####JANETH Galo ([id number])[facility] ([facility])[address] [place] [address] Glucose [Mass/Vol] 184 mg/dL High 74-99 [facility] Comment on above: Performed By: #### 9 3685-6 ####JANETH Galo ([id number])[facility] ([facility])[address] [place] [address] HCO3 (Bld) [Moles/Vol] 22.2 mmol/L Normal 22.0-26.0 [facility] Comment on above: Performed By: #### 9 3685-6 ####JANETH Galo ([id number])[facility] ([facility])[address] [place] [address] Hematocrit Est (Bld) [Volume fraction] 21.0 % Low 36.0-46.0 [facility] Comment on above: Performed By: #### 9 3685-6 ####JANETH Galo ([id number])[facility] ([facility])[address] [place] [address] Hemoglobin (Bld) [Mass/Vol] 7.0 g/dL Low 12.0-16.0 [facility] Comment on above: Performed By: #### 9 3685-6 ####JANETH Galo ([id number])[facility] ([facility])[address] [place] [address] Inhaled oxygen concentration 42 % Normal [facility] Comment on above: Performed By: #### 9 3685-6 ####JANETH Galo ([id number])[facility] ([facility])[address] [place] [address] Lactate (BldA) [Moles/Vol] 1.3 mmol/L Normal 0.4-2.0 [facility] Comment on above: Performed By: #### 9 3685-6 ####JANETH Galo ([id number])[facility] ([facility])[address] [place] [address] Oxygen (Bld) [Partial pressure] 141 mm Hg High 85-95 [facility] Comment on above: Performed By: #### 9 3685-6 ####JANETH Galo ([id number])[facility] ([facility])[address] [place] [address] 697[address] Oxyhemoglobin (BldA) [Mass fraction] 95.0 % Normal 94.0-98.0 [facility] Comment on above: Performed By: #### 9 3685-6 ####JANETH Galo ([id number])[facility] ([facility])[address] [place] [address] pH (Bld) 7.32 [pH] Low 7.38-7.42 [facility] Comment on above: Performed By: #### 9 3685-6 ####JANETH Galo ([id number])[facility] ([facility])[address] [place] [address]36 Potassium (BldA) [Moles/Vol] 5.7 mmol/L High 3.5-5.3 [facility] Comment on above: Performed By: #### 9 3685-6 ####JANETH Galo ([id number])[facility] ([facility])[address] [place] [address] 47789 Sodium (BldA) [Moles/Vol] 129 mmol/L Low 136-145 [facility] Comment on above: Performed By: #### 9 3685-6 ####JANETH Galo ([id number])[facility] ([facility])[address] [place] [address] Anion gap 4 (BldA) [Moles/Vol] 13 mmo/L Normal 10-25 [facility] Comment on above: Performed By: #### 9 3685-6 ####JANETH Galo ([id number])[facility] ([facility])[address] [place] [address]17 Base excess Calc (Bld) [Moles/Vol] -3.6000 mmol/L Low -2.0-3.0 [facility] Comment on above: Performed By: #### 9 3685-6 ####JANETH Galo ([id number])[facility] ([facility])[address] [place] [address] 24692 Calcium.ionized (BldA) [Moles/Vol] 1.20 mmol/L Normal 1.10-1.33 [facility] Comment on above: Performed By: #### 9 3685-6 ####JANETH Galo (49068)[facility] ([facility])[address]328 [place] [address] Chloride (BldA) [Moles/Vol] 101 mmol/L Normal 98-107 [facility] Comment on above: Performed By: #### 9 3685-6 ####JANETH Galo ([id number])[facility] ([facility])[address] [place] [address] 95648 CO2 (Bld) [Partial pressure] 46 mm Hg High 38-42 [facility] Comment on above: Performed By: #### 9 3685-6 ####JANETH Galo (20108)[facility] ([facility])[address] [place] [address] 09958 Glucose [Mass/Vol] 158 mg/dL High 74-99 [facility] Comment on above: Performed By: #### 9 3685-6 ####JANETH Galo (87885)[facility] ([facility])[address]007 [place] [address] HCO3 (Bld) [Moles/Vol] 22.6 mmol/L Normal 22.0-26.0 [facility] Comment on above: Performed By: #### 9 3685-6 ####JANETH Galo (79392)[facility] ([facility])[address]4784 [place] [address] Hematocrit Est (Bld) [Volume fraction] 23.0 % Low 36.0-46.0 [facility] Comment on above: Performed By: #### 9 3685-6 ####JANETH Galo (55534)[facility] ([facility])[address] [place] [address]857 Hemoglobin (Bld) [Mass/Vol] 7.5 g/dL Low 12.0-16.0 [facility] Comment on above: Performed By: #### 9 3685-6 ####JANETH Galo (97193)[facility] ([facility])[address]57 [place] [address] Inhaled oxygen concentration 42 % Normal [facility] Comment on above: Performed By: #### 9 3685-6 ####JANETH Galo (00298)[facility] ([facility])84377 [place] [address] Lactate (BldA) [Moles/Vol] 1.6 mmol/L Normal 0.4-2.0 [facility] Comment on above: Performed By: #### 9 3685-6 ####JANETH Galo ([id number])[facility] ([facility])[address]139 [place] [address] Oxygen (Bld) [Partial pressure] 109 mm Hg High 85-95 [facility] Comment on above: Performed By: #### 9 3685-6 ####JANETH Galo (24592)[facility] ([facility])97955 [place] [address] Oxyhemoglobin (BldA) [Mass fraction] 94.7 % Normal 94.0-98.0 [facility] Comment on above: Performed By: #### 9 8295-6 ####JANETH Galo ([id number])[facility] ([facility])58647 [place] [address] pH (Bld) 7.30 [pH] Low 7.38-7.42 [facility] Comment on above: Performed By: #### 9 5105-6 ####JANETH Galo ([id number])[facility] ([facility])[address]20 [place] [address] Potassium (BldA) [Moles/Vol] 6.2 mmol/L Critically high 3.5-5.3 [facility] Comment on above: Performed By: #### 9 5065-6 ####JANETH Galo (26912)[facility] ([facility])[address]60 [place] [address] Sodium (BldA) [Moles/Vol] 130 mmol/L Low 136-145 [facility] Comment on above: Performed By: #### 9 3685-6 ####JANETH Galo ([id number])[facility] ([facility])[address] [place] [address] 57031 Gas and Carbon monoxide and Electrolytes panel (BldA)Ordered By: Jin Barajas on 03-25-2024 Anion gap 4 (BldA) [Moles/Vol] 12 [facility] Base excess Calc (Bld) [Moles/Vol] -2.4000 mmol/L Low -2.0-3.0 [facility] Comment on above: Performed By: #### 9 3685-6 ####JANETH Galo ([id number])[facility] ([facility])[address] [place] [address] 24004 Calcium.ionized (BldA) [Moles/Vol] 1.21 mmol/L Normal 1.10-1.33 [facility] Comment on above: Performed By: #### 9 3685-6 ####JANETH Galo (72153)[facility] ([facility])[address] [place] [address] 69456 Chloride (BldA) [Moles/Vol] 105 mmol/L Normal 98-107 [facility] Comment on above: Performed By: #### 9 3685-6 ####JANETH Galo ([id number])[facility] ([facility])[address] [place] [address] 31187 CO2 (Bld) [Partial pressure] 38 mm[Hg] [facility] Glucose [Mass/Vol] 134 mg/dL High 74-99 [facility] Comment on above: Performed By: #### 9 3685-6 ####JANETH Galo (18806)[facility] ([facility])[address] [place] [address] 35019 HCO3 (Bld) [Moles/Vol] 22.5 mmol/L Normal 22.0-26.0 [facility] Comment on above: Performed By: #### 9 3685-6 ####JANETH Galo (31884)[facility] ([facility])[address] [place] [address] 49914 Hematocrit Est (Bld) [Volume fraction] 20 % Low 36.0 - 46.0 % [facility] Hemoglobin (Bld) [Mass/Vol] 6.5 g/dL Critically low 12.0-16.0 [facility] Comment on above: Performed By: #### 9 3685-6 ####JANETH Galo (05017)[facility] ([facility])[address] [place] [address] 03809 Inhaled oxygen concentration 42 % [facility] Interpretation and review of laboratory results Abnormal [facility] Lactate (BldA) [Moles/Vol] 1.3 mmol/L 0.4 - 2.0 mmol/L [facility] Oxygen (Bld) [Partial pressure] 122 mm[Hg] High [facility] Oxyhemoglobin (BldA) [Mass fraction] 95.6 % Normal 94.0-98.0 [facility] Comment on above: Performed By: #### 9 3685-6 ####JANETH Galo ([id number])[facility] ([facility])[address] [place] [address] 18383 pH (Bld) 7.38 [pH] 7.38 - 7.42 pH [facility] Potassium (BldA) [Moles/Vol] 6.3 mmol/L Critically high 3.5-5.3 [facility] Comment on above: Performed By: #### 9 3685-6 ####JANETH Galo (85803)[facility] ([facility])[address] [place] [address] 71390 Sodium (BldA) [Moles/Vol] 133 mmol/L Low 136 - 145 mmol/L [facility] HCG ( test) Ql (U)o n 03-25-2024 Interpretation and review of laboratory results Normal [facility] Work Phone: Preg Test, Ur Negative Negative [facility] Work Phone: [facility] Work Phone: Magnesiumon 03-25-2024 Magnesium [Mass/Vol] 2.72 mg/dL High 1.60 - 2.40 mg/dL [facility] Magnesium [Mass/Vol] 2.72 mg/dL High 1.60-2.40 [facility] Comment on above: Performed By: #### 1 9123-9 ####JANETH Galo ([id number])[facility] ([facility])[address] [place], [place] [id number] 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 Org specific cx Nom (Unsp spec) [facility] Comment on above: Performed By: #### 5 [id number] ####JANETH Galo ([id number])[facility] ([facility])[address] [place] [address] No Panel Informationon 03-25 Interpretation and review of laboratory results Abnormal [facility] Phosphateon 03-25-2024 Phosphate [Mass/Vol] 4.0 mg/dL Normal 2.5-4.9 [facility] Comment on above: Result Comment: The performance characteristics of phosphorus testing in heparinized plasma have been validated by the individual laboratory site where testing is performed. Testing on heparinized plasma is not approved by the FDA; however, such approval is not necessary. Performed By: #### 2 [id number] ####JANETH Galo ([id number])[facility] ([facility])[address] [place], [place] [phone] Phosphate [Mass/Vol]on 03-25 Interpretation and review of laboratory results Normal [facility] Phosphoruson 03-25-2024 Phosphate [Mass/Vol] 4 mg/dL 2.5 - 4 .9 mg/dL [facility] Comment on above: The performance lucia acteristics of phosphorus testing in heparinized plasma have been validated by the individual laboratory site where testing is performed. Testing on heparinized plasma is not approved by the FDA; however, such approval is not necessary. Prepare RBC: 1 Unitson 03-25 Blood Expiration Date 04/23/2024 11:59:00 PM EST [facility] Dispense Status TR [facility] PRODUCT BLOOD TYPE [address] [facility] PRODUCT CODE [id number] [facility] Unit ABO A [facility] Unit Number [id number] [facility] Unit RH Positive [facility] UNIT VOLUME 350 [facility] XM INTEP COMP [facility] Renal function 2000 panelon 03-25-2024 Albumin BCP dye [Mass/Vol] 4 g/dL 3.4 - 5.0 g/dL [facility] Anion gap [Moles/Vol] 14 mmol/L 10 - 2 0 mmol/L [facility] Calcium [Mass/Vol] 8.7 mg/dL 8.6 - 10. 6 mg/dL [facility] Chloride [Moles/Vol] 104 mmol/L 98 - 10 7 mmol/L [facility] CO2 [Moles/Vol] 24 mmol/L 21 - 32 mmol/L [facility] Creatinine [Mass/Vol] 1.67 mg/dL High 0.50 - 1.05 mg/dL [facility] GFR/1.73 sq M.predicted among non-blacks MDRD (S/P/Bld) [Vol rate/Area] 37 mL/min/{1.73_m2} Low - PINF [facility] Comment on above: Calculations of bill mated GFR are performed using the 2020 CKD-EPI Study Refit equation without the race variable for the IDMS-Traceable creatinine methods. https://jasn.asnjournals.org/content//ASN.115698 8721 Glucose [Mass/Vol] 128 mg/dL High 74 - 99 mg/dL [facility] Interpretation and review of laboratory results Abnormal [facility] Phosphate [Mass/Vol] 3.4 mg/dL 2.5 - 4 .9 mg/dL [facility] Comment on above: The performance lucia acteristics of phosphorus testing in heparinized plasma have been validated by the individual laboratory site where testing is performed. Testing on heparinized plasma is not approved by the FDA; however, such approval is not necessary. Potassium [Moles/Vol] 5.7 mmol/L High 3.5 - 5.3 mmol/L [facility] Sodium [Moles/Vol] 136 mmol/L 136 - 145 mmol/L [facility] Urea nitrogen [Mass/Vol] 35 mg/dL High 6 - 23 mg/dL [facility] Albumin BCP dye [Mass/Vol] 4.0 g/dL Normal 3.4-5.0 [facility] Comment on above: Performed By: #### 2 4362-6 ####JANETH Galo ([id number])[facility] ([facility])[address] [place] [address] Anion gap [Moles/Vol] 14 mmol/L Normal 10-20 [facility] Comment on above: Performed By: #### 2 4362-6 ####JANETH Galo ([id number])[facility] ([facility])[address] [place] [address] Calcium [Mass/Vol] 8.7 mg/dL Normal 8.6-10.6 [facility] Comment on above: Performed By: #### 2 4362-6 ####JANETH Galo ([id number])[facility] ([facility])[address] [place] [address] Chloride [Moles/Vol] 104 mmol/L Normal 98-107 [facility] Comment on above: Performed By: #### 2 4362-6 ####JANETH Galo ([id number])[facility] ([facility])[address] [place] [address] CO2 [Moles/Vol] 24 mmol/L Normal 21-32 [facility] Comment on above: Performed By: #### 2 4362-6 ####JANETH Galo ([id number])[facility] ([facility])[address] [place] [address] Creatinine [Mass/Vol] 1.67 mg/dL High 0.50-1.05 [facility] Comment on above: Performed By: #### 2 4362-6 ####JANETH Galo ([id number])[facility] ([facility])[address] [place] [address] Glomerular filtration rate/1.73 sq M.predicted 37 mL/min/1.73m*2 Low >60 [facility] Comment on above: Result Comment: Calc ulations of estimated GFR are performed using the 2020 CKD-EPI Study Refit equation without the race variable for the IDMS-Traceable creatinine methods.https://jasn.asnjournals.org/content/early// N.1094626814 Performed By: #### 2 4362-6 ####JANETH Galo ([id number])[facility] ([facility])[address] [place] [address] Glucose [Mass/Vol] 128 mg/dL High 74-99 [facility] Comment on above: Performed By: #### 2 4362-6 ####JANETH Galo ([id number])[facility] ([facility])[address] [place] [address] Phosphate [Mass/Vol] 3.4 mg/dL Normal 2.5-4.9 [facility] Comment on above: Result Comment: The performance characteristics of phosphorus testing in heparinized plasma have been validated by the individual laboratory site where testing is performed. Testing on heparinized plasma is not approved by the FDA; however, such approval is not necessary. Performed By: #### 2 4362-6 ####JANETH Galo ([id number])[facility] ([facility])[address] [place] [address] Potassium [Moles/Vol] 5.7 mmol/L High 3.5-5.3 [facility] Comment on above: Performed By: #### 2 4362-6 ####JANETH Galo ([id number])[facility] ([facility])[address] [place] [address] Sodium [Moles/Vol] 136 mmol/L Normal 136-145 [facility] Comment on above: Performed By: #### 2 4362-6 ####JANETH Galo ([id number])[facility] ([facility])[address] [place] [address] Urea nitrogen [Mass/Vol] 35 mg/dL High 6-23 [facility] Comment on above: Performed By: #### 2 4362-6 ####JANETH Galo ([id number])[facility] ([facility])[address] [place] [address] XR CHEST 1 VIEWon 03-25-2024 XR CHEST 1 VIEW Normal [facility] XR Chest Single viewon 03-25 Radiology Study observation (narrative) [facility] Work Phone: Basic metabolic 2000 panelon 03-18-2024 Anion gap [Moles/Vol] 12 mmol/L 10 - 2 0 mmol/L [facility] Calcium [Mass/Vol] 9.4 mg/dL 8.6 - 10. 6 mg/dL [facility] Chloride [Moles/Vol] 100 mmol/L 98 - 10 7 mmol/L [facility] CO2 [Moles/Vol] 30 mmol/L 21 - 32 mmol/L [facility] Creatinine [Mass/Vol] 0.63 mg/dL 0.50 - 1.05 mg/dL [facility] eGFR - PINF [facility] Comment on above: Calculations of bill mated GFR are performed using the 2020 CKD-EPI Study Refit equation without the race variable for the IDMS-Traceable creatinine methods. https://jasn.asnjournals.org/content//ASN.428628 8680 Glucose [Mass/Vol] 88 mg/dL 74 - 99 mg/dL [facility] Interpretation and review of laboratory results Normal [facility] Potassium [Moles/Vol] 4.8 mmol/L 3.5 - 5.3 mmol/L [facility] Comment on above: MILD HEMOLYSIS DETEC ROSANNA. The result may be falsely elevated due to hemolysis or other interferents. Clinical correlation is recommended. Repeat testing may be considered. Sodium [Moles/Vol] 137 mmol/L 136 - 145 mmol/L [facility] Urea nitrogen [Mass/Vol] 13 mg/dL 6 - 23 mg/dL [facility] Anion gap [Moles/Vol] 12 mmol/L Normal 10-20 [facility] Comment on above: Performed By: #### 2 4321-2 ####JANETH Galo ([id number])[facility] ([facility])[address] [place] [address] Calcium [Mass/Vol] 9.4 mg/dL Normal 8.6-10.6 [facility] Comment on above: Performed By: #### 2 4321-2 ####JANETH GRAFF L ([id number])[facility] ([facility])[address] [place] [address] Chloride [Moles/Vol] 100 mmol/L Normal 98-107 [facility] Comment on above: Performed By: #### 2 4321-2 ####JANETH GRAFF L ([id number])[facility] ([facility])[address] [place] [address] CO2 [Moles/Vol] 30 mmol/L Normal 21-32 [facility] Comment on above: Performed By: #### 2 4321-2 ####JANETH GRAFF L ([id number])[facility] ([facility])[address] [place] [address] Creatinine [Mass/Vol] 0.63 mg/dL Normal 0.50-1.05 [facility] Comment on above: Performed By: #### 2 4321-2 ####JANETH GRAFF L ([id number])[facility] ([facility])[address] [place] [address] GFR/1.73 sq M.predicted MDRD (S/P/Bld) [Vol rate/Area] mL/min/{1.73_m2} Normal >60 [facility] Comment on above: Result Comment: Calc ulations of estimated GFR are performed using the 2020 CKD-EPI Study Refit equation without the race variable for the IDMS-Traceable creatinine methods.https://jasn.asnjournals.org/content/early// N.8292137178 Performed By: #### 2 4321-2 ####JANETH Galo ([id number])[facility] ([facility])[address] [place] [address] Glucose [Mass/Vol] 88 mg/dL Normal 74-99 [facility] Comment on above: Performed By: #### 2 4321-2 ####JANETH Galo ([id number])[facility] ([facility])[address] [place] [address] Potassium [Moles/Vol] 4.8 mmol/L Normal 3.5-5.3 [facility] Comment on above: Result Comment: MILD HEMOLYSIS DETECTED. The result may be falsely elevated due to hemolysis or other interferents. Clinical correlation is recommended. Repeat testing may be considered. Performed By: #### 2 4321-2 ####JANETH Galo ([id number])[facility] ([facility])[address] [place] [address] Sodium [Moles/Vol] 137 mmol/L Normal 136-145 [facility] Comment on above: Performed By: #### 2 4321-2 ####JANETH Galo ([id number])[facility] ([facility])[address] [place] [address] Urea nitrogen [Mass/Vol] 13 mg/dL Normal 6-23 [facility] Comment on above: Performed By: #### 2 4321-2 ####JANETH Galo ([id number])[facility] ([facility])[address] [place] [address] Basic metabolic 2000 panelon 03-17-2024 Anion gap [Moles/Vol] 12 mmol/L 10 - 2 0 mmol/L [facility] Calcium [Mass/Vol] 9.3 mg/dL 8.6 - 10. 6 mg/dL [facility] Chloride [Moles/Vol] 101 mmol/L 98 - 10 7 mmol/L [facility] CO2 [Moles/Vol] 29 mmol/L 21 - 32 mmol/L [facility] Creatinine [Mass/Vol] 0.63 mg/dL 0.50 - 1.05 mg/dL [facility] eGFR - PINF [facility] Comment on above: Calculations of bill mated GFR are performed using the 2020 CKD-EPI Study Refit equation without the race variable for the IDMS-Traceable creatinine methods. https://jasn.asnjournals.org/content//ASN.143798 8880 Glucose [Mass/Vol] 81 mg/dL 74 - 99 mg/dL [facility] Interpretation and review of laboratory results Normal [facility] Potassium [Moles/Vol] 4.7 mmol/L 3.5 - 5.3 mmol/L [facility] Sodium [Moles/Vol] 137 mmol/L 136 - 145 mmol/L [facility] Urea nitrogen [Mass/Vol] 12 mg/dL 6 - 23 mg/dL [facility] Anion gap [Moles/Vol] 12 mmol/L Normal 10-20 [facility] Comment on above: Performed By: #### 2 4321-2 ####JANETH Galo ([id number])[facility] ([facility])[address] [place] [address] Calcium [Mass/Vol] 9.3 mg/dL Normal 8.6-10.6 [facility] Comment on above: Performed By: #### 2 4321-2 ####JANETH Galo ([id number])[facility] ([facility])[address] [place] [address] Chloride [Moles/Vol] 101 mmol/L Normal 98-107 [facility] Comment on above: Performed By: #### 2 4321-2 ####JANETH Galo ([id number])[facility] ([facility])[address] [place] [address] CO2 [Moles/Vol] 29 mmol/L Normal 21-32 [facility] Comment on above: Performed By: #### 2 4321-2 ####JANETH Galo ([id number])[facility] ([facility])[address] [place] [address] Creatinine [Mass/Vol] 0.63 mg/dL Normal 0.50-1.05 [facility] Comment on above: Performed By: #### 2 4321-2 ####JANETH Galo ([id number])[facility] ([facility])[address] [place] [address] GFR/1.73 sq M.predicted MDRD (S/P/Bld) [Vol rate/Area] mL/min/{1.73_m2} Normal >60 [facility] Comment on above: Result Comment: Calc ulations of estimated GFR are performed using the 2020 CKD-EPI Study Refit equation without the race variable for the IDMS-Traceable creatinine methods.https://jasn.asnjournals.org/content/early/ N.8260063971 Performed By: #### 2 4321-2 ####JANETH Galo ([id number])[facility] ([facility])[address] [place] [address] Glucose [Mass/Vol] 81 mg/dL Normal 74-99 [facility] Comment on above: Performed By: #### 2 4321-2 ####JANETH Galo ([id number])[facility] ([facility])[address] [place] [address] Potassium [Moles/Vol] 4.7 mmol/L Normal 3.5-5.3 [facility] Comment on above: Performed By: #### 2 4321-2 ####JANETH GRAFF L ([id number])[facility] ([facility])[address] [place] [address] Sodium [Moles/Vol] 137 mmol/L Normal 136-145 [facility] Comment on above: Performed By: #### 2 4321-2 ####JANETH Galo ([id number])[facility] ([facility])[address] [place] [address] Urea nitrogen [Mass/Vol] 12 mg/dL Normal 6-23 [facility] Comment on above: Performed By: #### 2 4321-2 ####JANETH Galo ([id number])[facility] ([facility])[address] [place] [address] CBC panel Auto (Bld)on 03-17 Erythrocyte distribution width (RBC) [Ratio] 17 % High 11.5 - 14.5 % [facility] Hematocrit (Bld) [Volume fraction] 26.8 % Low 36.0 - 46.0 % [facility] Hemoglobin (Bld) [Mass/Vol] 7.8 g/dL Low 12.0 - 16.0 g/dL [facility] Interpretation and review of laboratory results Abnormal [facility] MCH (RBC) [Entitic mass] 26.4 pg 26.0 - 34.0 pg [facility] MCHC (RBC) [Mass/Vol] 29.1 g/dL Low 32.0 - 36.0 g/dL [facility] MCV (RBC) [Entitic vol] 91 fL 80 - 100 fL [facility] Nucleated RBC/100 WBC (Bld) [Ratio] 1.3 % High [facility] Platelets (Bld) [#/Vol] 505 10*3/uL High [facility] RBC (Bld) [#/Vol] 2.95 10*6/uL Low [facility] WBC (Bld) [#/Vol] 13 10*3/uL High [facility] Erythrocyte distribution width (RBC) [Ratio] 17.0 % High 11.5-14.5 [facility] Comment on above: Performed By: #### 5 8410-2 ####JANETH Galo ([id number])[facility] ([facility])[address] [place] [address] Hematocrit (Bld) [Volume fraction] 26.8 % Low 36.0-46.0 [facility] Comment on above: Performed By: #### 5 8410-2 ####JANETH Galo ([id number])[facility] ([facility])[address] [place] [address] Hemoglobin (Bld) [Mass/Vol] 7.8 g/dL Low 12.0-16.0 [facility] Comment on above: Performed By: #### 5 8410-2 ####JANETH Galo ([id number])[facility] ([facility])[address] [place] [address] MCH (RBC) [Entitic mass] 26.4 pg Normal 26.0-34.0 [facility] Comment on above: Performed By: #### 5 8410-2 ####JANETH Galo ([id number])[facility] ([facility])[address] [place] [address] MCHC (RBC) [Mass/Vol] 29.1 g/dL Low 32.0-36.0 [facility] Comment on above: Performed By: #### 5 8410-2 ####JANETH Galo ([id number])[facility] ([facility])[address] [place] [address] MCV (RBC) [Entitic vol] 91 fL Normal 80-100 [facility] Comment on above: Performed By: #### 5 8410-2 ####JANETH Galo ([id number])[facility] ([facility])[address] [place] [address] Nucleated RBC/100 WBC (Bld) [Ratio] 1.3 /100 WBCs High 0.0-0.0 [facility] Comment on above: Performed By: #### 5 8410-2 ####JANETH Galo ([id number])[facility] ([facility])[address] [place] [address] Platelets (Bld) [#/Vol] 505 x10*3/uL High 150-450 [facility] Comment on above: Performed By: #### 5 8410-2 ####JANETH Galo ([id number])[facility] ([facility])[address] [place] [address] RBC (Bld) [#/Vol] 2.95 x10*6/uL Low 4.00-5.20 [facility] Comment on above: Performed By: #### 5 8410-2 ####JANETH Galo ([id number])[facility] ([facility])[address] [place] [address] WBC (Bld) [#/Vol] 13.0 x10*3/uL High 4.4-11.3 [facility] Comment on above: Performed By: #### 5 8410-2 ####JANETH Galo ([id number])[facility] ([facility])[address] [place] [address] Basic metabolic 2000 panelon 03-16-2024 Anion gap [Moles/Vol] 9 mmol/L Low 10 - 2 0 mmol/L [facility] Calcium [Mass/Vol] 8.3 mg/dL Low 8.6 - 10. 6 mg/dL [facility] Chloride [Moles/Vol] 102 mmol/L 98 - 10 7 mmol/L [facility] CO2 [Moles/Vol] 31 mmol/L 21 - 32 mmol/L [facility] Creatinine [Mass/Vol] 0.48 mg/dL Low 0.50 - 1.05 mg/dL [facility] eGFR - PINF [facility] Comment on above: Calculations of bill mated GFR are performed using the 2020 CKD-EPI Study Refit equation without the race variable for the IDMS-Traceable creatinine methods. https://jasn.asnjournals.org/content//ASN.172365 2840 Glucose [Mass/Vol] 124 mg/dL High 74 - 99 mg/dL [facility] Interpretation and review of laboratory results Abnormal [facility] Potassium [Moles/Vol] 3.9 mmol/L 3.5 - 5.3 mmol/L [facility] Sodium [Moles/Vol] 138 mmol/L 136 - 145 mmol/L [facility] Urea nitrogen [Mass/Vol] 12 mg/dL 6 - 23 mg/dL [facility] Anion gap [Moles/Vol] 9 mmol/L Low 10-20 [facility] Comment on above: Performed By: #### 2 4321-2 ####JANETH GRAFF L ([id number])[facility] ([facility])[address] [place] [address] Calcium [Mass/Vol] 8.3 mg/dL Low 8.6-10.6 [facility] Comment on above: Performed By: #### 2 4321-2 ####JANETH GRAFF L ([id number])[facility] ([facility])[address] [place] [address] Chloride [Moles/Vol] 102 mmol/L Normal 98-107 [facility] Comment on above: Performed By: #### 2 4321-2 ####JANETH GRAFF L ([id number])[facility] ([facility])[address] [place] [address] CO2 [Moles/Vol] 31 mmol/L Normal 21-32 [facility] Comment on above: Performed By: #### 2 4321-2 ####JANETH GRAFF L ([id number])[facility] ([facility])[address] [place] [address] Creatinine [Mass/Vol] 0.48 mg/dL Low 0.50-1.05 [facility] Comment on above: Performed By: #### 2 4321-2 ####JANETH GRAFF L ([id number])[facility] ([facility])[address]47 [place] [address] GFR/1.73 sq M.predicted MDRD (S/P/Bld) [Vol rate/Area] mL/min/{1.73_m2} Normal >60 [facility] Comment on above: Result Comment: Calc ulations of estimated GFR are performed using the 2020 CKD-EPI Study Refit equation without the race variable for the IDMS-Traceable creatinine methods.https://jasn.asnjournals.org/content/early/ N.0825861310 Performed By: #### 2 4321-2 ####JANETH Galo ([id number])[facility] ([facility])[address] [place] [address] Glucose [Mass/Vol] 124 mg/dL High 74-99 [facility] Comment on above: Performed By: #### 2 4321-2 ####JANETH Galo ([id number])[facility] ([facility])[address] [place] [address] Potassium [Moles/Vol] 3.9 mmol/L Normal 3.5-5.3 [facility] Comment on above: Performed By: #### 2 4321-2 ####JANETH Galo ([id number])[facility] ([facility])[address]159 [place] [address] Sodium [Moles/Vol] 138 mmol/L Normal 136-145 [facility] Comment on above: Performed By: #### 2 4321-2 ####JANETH Galo (55945)[facility] ([facility])[address] [place] [address] Urea nitrogen [Mass/Vol] 12 mg/dL Normal 6-23 [facility] Comment on above: Performed By: #### 2 4321-2 ####JANETH Galo ([id number])[facility] ([facility])[address] [place] [address] CBC panel Auto (Bld)on 03-16 Erythrocyte distribution width (RBC) [Ratio] 16.9 % High 11.5 - 14.5 % [facility] Hematocrit (Bld) [Volume fraction] 24 % Low 36.0 - 46.0 % [facility] Hemoglobin (Bld) [Mass/Vol] 7.3 g/dL Low 12.0 - 16.0 g/dL [facility] Interpretation and review of laboratory results Abnormal [facility] MCH (RBC) [Entitic mass] 26.8 pg 26.0 - 34.0 pg [facility] MCHC (RBC) [Mass/Vol] 30.4 g/dL Low 32.0 - 36.0 g/dL [facility] MCV (RBC) [Entitic vol] 88 fL 80 - 100 fL [facility] Nucleated RBC/100 WBC (Bld) [Ratio] 1 % High [facility] Platelets (Bld) [#/Vol] 416 10*3/uL [facility] RBC (Bld) [#/Vol] 2.72 10*6/uL Low [facility] WBC (Bld) [#/Vol] 12.5 10*3/uL High [facility] Erythrocyte distribution width (RBC) [Ratio] 16.9 % High 11.5-14.5 [facility] Comment on above: Performed By: #### 5 8410-2 ####JANETH Galo ([id number])[facility] ([facility])[address] [place] [address] Hematocrit (Bld) [Volume fraction] 24.0 % Low 36.0-46.0 [facility] Comment on above: Performed By: #### 5 8410-2 ####JANETH Galo ([id number])[facility] ([facility])[address] [place] [address] Hemoglobin (Bld) [Mass/Vol] 7.3 g/dL Low 12.0-16.0 [facility] Comment on above: Performed By: #### 5 8410-2 ####JANETH Galo ([id number])[facility] ([facility])[address] [place] [address] MCH (RBC) [Entitic mass] 26.8 pg Normal 26.0-34.0 [facility] Comment on above: Performed By: #### 5 8410-2 ####JANETH Galo ([id number])[facility] ([facility])[address] [place] [address] MCHC (RBC) [Mass/Vol] 30.4 g/dL Low 32.0-36.0 [facility] Comment on above: Performed By: #### 5 8410-2 ####JANETH Galo ([id number])[facility] ([facility])[address] [place] [address] MCV (RBC) [Entitic vol] 88 fL Normal 80-100 [facility] Comment on above: Performed By: #### 5 8410-2 ####JANETH Galo ([id number])[facility] ([facility])[address] [place] [address] Nucleated RBC/100 WBC (Bld) [Ratio] 1.0 /100 WBCs High 0.0-0.0 [facility] Comment on above: Performed By: #### 5 8410-2 ####JANETH Galo ([id number])[facility] ([facility])[address] [place] [address] Platelets (Bld) [#/Vol] 416 x10*3/uL Normal 150-450 [facility] Comment on above: Performed By: #### 5 8410-2 ####JANETH Galo ([id number])[facility] ([facility])[address] [place] [address] RBC (Bld) [#/Vol] 2.72 x10*6/uL Low 4.00-5.20 [facility] Comment on above: Performed By: #### 5 8410-2 ####JANETH Galo ([id number])[facility] ([facility])[address] [place] [address] WBC (Bld) [#/Vol] 12.5 x10*3/uL High 4.4-11.3 [facility] Comment on above: Performed By: #### 5 8410-2 ####JANETH Galo ([id number])[facility] ([facility])[address] [place] [address] [place] 03-16-2024 [place] Telephone (DENISEUTSPENCER) ----- DEIDRA DE LA CRUZ ([id number]) 1970 F Date Time Provider Department 03/16/24 BIJAN ELMORE During your visit today, we recorded the following information about you: Lorna Tolbert 03/16/2024 12:46 PM Signed Deidra is calling Bijan Elmore MD today with concern regarding a situation where she needs a nurse 1-2 times a week before the hospital will release her. [facility] trying to get her someone, [...] calling: self Call patient at: on cell [phone] (cell) Was an appointment scheduled: No Closing statement: Results or non-symptom based questions: Thank you for calling [facility], your call will be returned within the next business day. Lorna Tolbert Costa Johnson LPN 03/17/2024 10:08 AM Signed Call placed to patient. She has a pic line and a wound vac. Patient has a brace on leg but has been doing transfers. Per patient her son will be home with her and has support from niece. Call placed to [facility]. They are able to except patient back. Cheryl Araujo APRN.MALI 03/17/2024 10:46 AM Signed Home Health Orders signed, please fax Cheryl Araujo APRN.Carlo Ott LPN 03/18/2024 5:25 PM Signed Fax sent Costa Johnson LPN 03/22/2024 4:22 PM Signed Orders faxed to [facility] Allergies As of Date: 03/16/2024 Noted Allergy Reaction PENICILLIN 06/05/2015 16 - Unknown Date Reviewed: 11/18/2023 Reviewed by: Carlo Miranda LPN - Fully Assessed Reason for Visit: Home Health Care Nurse Needed pati [Other] Primary Visit Diagnosis:Encounter for management of wound VAC [Z46.89] Other Visit Diagnosis:Status post PICC central line placement [Z95.828] Order(s):[facility] [[id number]] Order #: [id number]: 1 Prescriptions as of 03/22/2024 - levETIRAcetam [...] Status:Closed by CARLO MIRANDA on 03/18/24 Normal [facility] MRSA isol Org specific cx Ql (Nose)Ordered By: Radha Bird on 03-16-2024 Interpretation and review of laboratory results Normal [facility] Staphylococcus sp identified Org specific cx Nom (Unsp spec) No Staphylococcus aureus isolated [facility] Bacteria identified Cx Nom ( Bld)on 03-15-2024 Interpretation and review of laboratory results Normal [facility] Basic metabolic 2000 panelon 03-15-2024 Anion gap [Moles/Vol] 11 mmol/L 10 - 2 0 mmol/L [facility] Calcium [Mass/Vol] 8.9 mg/dL 8.6 - 10. 6 mg/dL [facility] Chloride [Moles/Vol] 100 mmol/L 98 - 10 7 mmol/L [facility] CO2 [Moles/Vol] 30 mmol/L 21 - 32 mmol/L [facility] Creatinine [Mass/Vol] 0.51 mg/dL 0.50 - 1.05 mg/dL [facility] eGFR - PINF [facility] Comment on above: Calculations of bill mated GFR are performed using the 2020 CKD-EPI Study Refit equation without the race variable for the IDMS-Traceable creatinine methods. https://jasn.asnjournals.org/content/early/ASN.301780 6331 Glucose [Mass/Vol] 104 mg/dL High 74 - 99 mg/dL [facility] Interpretation and review of laboratory results Abnormal [facility] Potassium [Moles/Vol] 3.9 mmol/L 3.5 - 5.3 mmol/L [facility] Sodium [Moles/Vol] 137 mmol/L 136 - 145 mmol/L [facility] Urea nitrogen [Mass/Vol] 10 mg/dL 6 - 23 mg/dL [facility] Anion gap [Moles/Vol] 11 mmol/L Normal 10-20 [facility] Comment on above: Performed By: #### 2 4321-2 ####JANETH GRAFF L ([id number])[facility] ([facility])[id number] [place] [address] Calcium [Mass/Vol] 8.9 mg/dL Normal 8.6-10.6 [facility] Comment on above: Performed By: #### 2 4321-2 ####JANETH GRAFF L ([id number])[facility] ([facility])[address] [place] [address] Chloride [Moles/Vol] 100 mmol/L Normal 98-107 [facility] Comment on above: Performed By: #### 2 4321-2 ####JANETH CONNORMOTZER L ([id number])[facility] ([facility])[address] [place] [address] CO2 [Moles/Vol] 30 mmol/L Normal 21-32 [facility] Comment on above: Performed By: #### 2 4321-2 ####JANETH MCDONALDTZER L ([id number])[facility] ([facility])[address] [place] [address] Creatinine [Mass/Vol] 0.51 mg/dL Normal 0.50-1.05 [facility] Comment on above: Performed By: #### 2 4321-2 ####JANETH GRAFF L ([id number])[facility] ([facility])[address] [place] [address] GFR/1.73 sq M.predicted MDRD (S/P/Bld) [Vol rate/Area] mL/min/{1.73_m2} Normal >60 [facility] Comment on above: Result Comment: Calc ulations of estimated GFR are performed using the 2020 CKD-EPI Study Refit equation without the race variable for the IDMS-Traceable creatinine methods.https://jasn.asnjournals.org/content/early// N.8167866460 Performed By: #### 2 4321-2 ####JANETH RANGELER L ([id number])[facility] ([facility])[address] [place] [address] Glucose [Mass/Vol] 104 mg/dL High 74-99 [facility] Comment on above: Performed By: #### 2 4321-2 ####JANETH CONNORMOPIEDADER L ([id number])[facility] ([facility])[address] [place] [address] Potassium [Moles/Vol] 3.9 mmol/L Normal 3.5-5.3 [facility] Comment on above: Performed By: #### 2 4321-2 ####JANETH CONNORMOTZER L ([id number])[facility] ([facility])[address] [place] [address] Sodium [Moles/Vol] 137 mmol/L Normal 136-145 [facility] Comment on above: Performed By: #### 2 4321-2 ####JANETH SCHMOTZER L ([id number])[facility] ([facility])[address] [place] [address] Urea nitrogen [Mass/Vol] 10 mg/dL Normal 6-23 [facility] Comment on above: Performed By: #### 2 4321-2 ####JANETH SCHMOTZER L ([id number])[facility] ([facility])[address] [place] [address] Bedside PICC Imagingon 03-15 These images are not reportable by radiology and will not be interpreted by Radiologists. IMAGING CBC panel Auto (Bld)on 03-15 Erythrocyte distribution width (RBC) [Ratio] 17.2 % High 11.5 - 14.5 % [facility] Hematocrit (Bld) [Volume fraction] 26.4 % Low 36.0 - 46.0 % [facility] Hemoglobin (Bld) [Mass/Vol] 7.8 g/dL Low 12.0 - 16.0 g/dL [facility] Interpretation and review of laboratory results Abnormal [facility] MCH (RBC) [Entitic mass] 26.7 pg 26.0 - 34.0 pg [facility] MCHC (RBC) [Mass/Vol] 29.5 g/dL Low 32.0 - 36.0 g/dL [facility] MCV (RBC) [Entitic vol] 90 fL 80 - 100 fL [facility] Nucleated RBC/100 WBC (Bld) [Ratio] 0.3 % High [facility] Platelets (Bld) [#/Vol] 402 10*3/uL [facility] RBC (Bld) [#/Vol] 2.92 10*6/uL Low [facility] WBC (Bld) [#/Vol] 13.9 10*3/uL High [facility] Erythrocyte distribution width (RBC) [Ratio] 17.2 % High 11.5-14.5 [facility] Comment on above: Performed By: #### 5 8410-2 ####JANETH Galo ([id number])[facility] ([facility])[address] [place] [address] Hematocrit (Bld) [Volume fraction] 26.4 % Low 36.0-46.0 [facility] Comment on above: Performed By: #### 5 8410-2 ####JANETH Galo ([id number])[facility] ([facility])[id number] [place] [address] Hemoglobin (Bld) [Mass/Vol] 7.8 g/dL Low 12.0-16.0 [facility] Comment on above: Performed By: #### 5 8410-2 ####JANETH Galo ([id number])[facility] ([facility])[address] [place] [address] MCH (RBC) [Entitic mass] 26.7 pg Normal 26.0-34.0 [facility] Comment on above: Performed By: #### 5 8410-2 ####JANETH Galo ([id number])[facility] ([facility])[address] [place] [address] MCHC (RBC) [Mass/Vol] 29.5 g/dL Low 32.0-36.0 [facility] Comment on above: Performed By: #### 5 8410-2 ####JANETH aGlo ([id number])[facility] ([facility])[address] [place] [address] MCV (RBC) [Entitic vol] 90 fL Normal 80-100 [facility] Comment on above: Performed By: #### 5 8410-2 ####JANETH Galo ([id number])[facility] ([facility])[address] [place] [address] Nucleated RBC/100 WBC (Bld) [Ratio] 0.3 /100 WBCs High 0.0-0.0 [facility] Comment on above: Performed By: #### 5 8410-2 ####JANETH Galo ([id number])[facility] ([facility])[address] [place] [address] Platelets (Bld) [#/Vol] 402 x10*3/uL Normal 150-450 [facility] Comment on above: Performed By: #### 5 8410-2 ####JANETH Galo ([id number])[facility] ([facility])[address] [place] [address] RBC (Bld) [#/Vol] 2.92 x10*6/uL Low 4.00-5.20 [facility] Comment on above: Performed By: #### 5 8410-2 ####JANETH Galo ([id number])[facility] ([facility])[address] [place] [address] WBC (Bld) [#/Vol] 13.9 x10*3/uL High 4.4-11.3 [facility] Comment on above: Performed By: #### 5 8410-2 ####JANETH Galo ([id number])[facility] ([facility])[address] [place] [address] CTA Thoracic and Abdominal A christelle and [...] as stated. This study was interpreted at [facility], [place], [place]. MACRO: None Signed by: Micha Waldron 03/15/2024 5:51 AM Dictation workstation: [id number] [facility] MMODAL Interpreted By: Micha Joyce, and Juliette Hernandez STUDY: CT ANGIO AORTA AND BILATERAL ILIOFEMORAL RUN OFF INCLUDING WITHOUT CONTRAST IF PERFORMED; 03/14/2024 4:21 pm INDICATION: Signs/Symptoms:Evaluation of RLE for possible flap. . COMPARISON: CT right tibia/fibula 03/12/2024 ACCESSION NUMBER(S): [id number] ORDERING CLINICIAN: CRUZ GOODMAN TECHNIQUE: High-resolution contrast-enhanced [...] M: (more content not included)... MMODAL Micha Waldron MD - 03/15/2024 Interpreted By: Micha Waldron, and Juliette Hernandez STUDY: CT ANGIO AORTA AND BILATERAL ILIOFEMORAL RUN OFF INCLUDING WITHOUT CONTRAST IF PERFORMED; 03/14/2024 4:21 pm INDICATION: Signs/Symptoms:Evaluation of RLE for possible flap. . COMPARISON: CT right tibia/fibula 03/12/2024 ACCESSION NUMBER(S): [id number] ORDERING CLINICIAN: CRUZ GOODMAN TECHNIQUE: High-resolution contrast-enhanced [...] acute retroperitoneal abnormality. (more content not included)... [facility] Work Phone: CTA Thoracic and Abdominal A christelle and Bilateral Runoff Vessels WO and W contrast IVOrdered By: Micha Waldron on 03-15-2024 [facility] Work Phone: Laboratory - Microbiology an d Antimicrobial susceptibilityon 03-15-2024 Bacteria identified Cx Nom (Bld) No growth at 4 days - FINAL REPORT [facility] PICC >5 YR BEDSIDE IMAGINGon 03-15-2024 PICC >5 YR BEDSIDE IMAGING These images are not reportable by radiology and will not be interpreted by Radiologists. Normal [facility] Staphylococcus aureus.methic illin resistant isolateon 03-15-2024 MRSA isol Org specific cx Ql (Nose) Normal [facility] Comment on above: Performed By: #### 5 2969-3 ####JANETH Galo ([id number])[facility] ([facility])[address] [place] [address] Basic metabolic 2000 panelon 03-14-2024 Anion gap [Moles/Vol] 11 mmol/L 10 - 2 0 mmol/L [facility] Calcium [Mass/Vol] 8.9 mg/dL 8.6 - 10. 6 mg/dL [facility] Chloride [Moles/Vol] 103 mmol/L 98 - 10 7 mmol/L [facility] CO2 [Moles/Vol] 30 mmol/L 21 - 32 mmol/L [facility] Creatinine [Mass/Vol] 0.69 mg/dL 0.50 - 1.05 mg/dL [facility] eGFR - PINF [facility] Comment on above: Calculations of bill mated GFR are performed using the 2020 CKD-EPI Study Refit equation without the race variable for the IDMS-Traceable creatinine methods. https://jasn.asnjournals.org/content//ASN.969887 0409 Glucose [Mass/Vol] 104 mg/dL High 74 - 99 mg/dL [facility] Interpretation and review of laboratory results Abnormal [facility] Potassium [Moles/Vol] 4.9 mmol/L 3.5 - 5.3 mmol/L [facility] Sodium [Moles/Vol] 139 mmol/L 136 - 145 mmol/L [facility] Urea nitrogen [Mass/Vol] 10 mg/dL 6 - 23 mg/dL [facility] Anion gap [Moles/Vol] 11 mmol/L Normal 10-20 [facility] Comment on above: Performed By: #### 2 4321-2 ####JANETH Galo ([id number])[facility] ([facility])[address] [place] [address] Calcium [Mass/Vol] 8.9 mg/dL Normal 8.6-10.6 [facility] Comment on above: Performed By: #### 2 4321-2 ####JANETH GRAFF L ([id number])[facility] ([facility])[address] [place] [address] Chloride [Moles/Vol] 103 mmol/L Normal 98-107 [facility] Comment on above: Performed By: #### 2 4321-2 ####JANETH GRAFF L ([id number])[facility] ([facility])[address] [place] [address] CO2 [Moles/Vol] 30 mmol/L Normal 21-32 [facility] Comment on above: Performed By: #### 2 4321-2 ####JANETH GRAFF L ([id number])[facility] ([facility])[address] [place] [address] Creatinine [Mass/Vol] 0.69 mg/dL Normal 0.50-1.05 [facility] Comment on above: Performed By: #### 2 4321-2 ####JANETH Galo ([id number])[facility] ([facility])[address] [place] [address] GFR/1.73 sq M.predicted MDRD (S/P/Bld) [Vol rate/Area] mL/min/{1.73_m2} Normal >60 [facility] Comment on above: Result Comment: Calc ulations of estimated GFR are performed using the 2020 CKD-EPI Study Refit equation without the race variable for the IDMS-Traceable creatinine methods.https://jasn.asnjournals.org/content/early// N.0936799042 Performed By: #### 2 4321-2 ####JANETH Galo ([id number])[facility] ([facility])[address] [place] [address] Glucose [Mass/Vol] 104 mg/dL High 74-99 [facility] Comment on above: Performed By: #### 2 4321-2 ####JANETH GRAFF L ([id number])[facility] ([facility])[address] [place] [address] Potassium [Moles/Vol] 4.9 mmol/L Normal 3.5-5.3 [facility] Comment on above: Performed By: #### 2 4321-2 ####JANETH GRAFF L ([id number])[facility] ([facility])[address]197 [place] [address] Sodium [Moles/Vol] 139 mmol/L Normal 136-145 [facility] Comment on above: Performed By: #### 2 4321-2 ####JANETH CONNORMOSARITA L ([id number])[facility] ([facility])[address] [place] [address] Urea nitrogen [Mass/Vol] 10 mg/dL Normal 6-23 [facility] Comment on above: Performed By: #### 2 4321-2 ####JANETH GRAFF L ([id number])[facility] ([facility])[address] [place] [address] CBC panel Auto (Bld)on 03-14 Erythrocyte distribution width (RBC) [Ratio] 17.3 % High 11.5 - 14.5 % [facility] Hematocrit (Bld) [Volume fraction] 27.6 % Low 36.0 - 46.0 % [facility] Hemoglobin (Bld) [Mass/Vol] 7.9 g/dL Low 12.0 - 16.0 g/dL [facility] Interpretation and review of laboratory results Abnormal [facility] MCH (RBC) [Entitic mass] 26.8 pg 26.0 - 34.0 pg [facility] MCHC (RBC) [Mass/Vol] 28.6 g/dL Low 32.0 - 36.0 g/dL [facility] MCV (RBC) [Entitic vol] 94 fL 80 - 100 fL [facility] Nucleated RBC/100 WBC (Bld) [Ratio] 0.2 % High [facility] Platelets (Bld) [#/Vol] 305 10*3/uL [facility] RBC (Bld) [#/Vol] 2.95 10*6/uL Low [facility] WBC (Bld) [#/Vol] 14.4 10*3/uL High [facility] Erythrocyte distribution width (RBC) [Ratio] 17.3 % High 11.5-14.5 [facility] Comment on above: Performed By: #### 5 8410-2 ####JANETH Galo ([id number])[facility] ([facility])[address] [place] [address] Hematocrit (Bld) [Volume fraction] 27.6 % Low 36.0-46.0 [facility] Comment on above: Performed By: #### 5 8410-2 ####JANETH Galo ([id number])[facility] ([facility])[address] [place] [address] Hemoglobin (Bld) [Mass/Vol] 7.9 g/dL Low 12.0-16.0 [facility] Comment on above: Performed By: #### 5 8410-2 ####JANETH Galo ([id number])[facility] ([facility])[address] [place] [address] MCH (RBC) [Entitic mass] 26.8 pg Normal 26.0-34.0 [facility] Comment on above: Performed By: #### 5 8410-2 ####JANETH Galo (85061)[facility] ([facility])[address] [place] [address] MCHC (RBC) [Mass/Vol] 28.6 g/dL Low 32.0-36.0 [facility] Comment on above: Performed By: #### 5 8410-2 ####JANETH Galo (60774)[facility] ([facility])[address] [place] [address] MCV (RBC) [Entitic vol] 94 fL Normal 80-100 [facility] Comment on above: Performed By: #### 5 8410-2 ####JANETH Galo ([id number])[facility] ([facility])[address] [place] [address] Nucleated RBC/100 WBC (Bld) [Ratio] 0.2 /100 WBCs High 0.0-0.0 [facility] Comment on above: Performed By: #### 5 8410-2 ####JANETH Galo ([id number])[facility] ([facility])[address]42 [place] [address] Platelets (Bld) [#/Vol] 305 x10*3/uL Normal 150-450 [facility] Comment on above: Performed By: #### 5 8410-2 ####JANETH Galo ([id number])[facility] ([facility])[address] [place] [address] RBC (Bld) [#/Vol] 2.95 x10*6/uL Low 4.00-5.20 [facility] Comment on above: Performed By: #### 5 8410-2 ####JANETH Galo ([id number])[facility] ([facility])[address] [place] [address] WBC (Bld) [#/Vol] 14.4 x10*3/uL High 4.4-11.3 [facility] Comment on above: Performed By: #### 5 8410-2 ####JANETH Galo ([id number])[facility] ([facility])[address] [place] [id number] ANGIO AORTA AND BILATERAL ILIOFEMORAL RUN OFF INCLUDING WITHOUT CONTRAST IF PERFORMEDon 03-14-2024 CT ANGIO AORTA AND BILATERAL ILIOFEMORAL RUN OFF INCLUDING WITHOUT CONTRAST IF PERFORMED Normal [facility] CTA Thoracic and Abdominal A christelle and Bilateral Runoff Vessels WO and W contrast Fritz 03-14-2024 Radiology Study observation (narrative) [facility] Work Phone: Basic metabolic 2000 panelon 03-13-2024 Anion gap [Moles/Vol] 12 mmol/L 10 - 2 0 mmol/L [facility] Calcium [Mass/Vol] 8.4 mg/dL Low 8.6 - 10. 6 mg/dL [facility] Chloride [Moles/Vol] 103 mmol/L 98 - 10 7 mmol/L [facility] CO2 [Moles/Vol] 27 mmol/L 21 - 32 mmol/L [facility] Creatinine [Mass/Vol] 0.94 mg/dL 0.50 - 1.05 mg/dL [facility] GFR/1.73 sq M.predicted among non-blacks MDRD (S/P/Bld) [Vol rate/Area] 73 mL/min/{1.73_m2} - PINF [facility] Comment on above: Calculations of bill mated GFR are performed using the 2020 CKD-EPI Study Refit equation without the race variable for the IDMS-Traceable creatinine methods. https://jasn.asnjournals.org/content/early//ASN.550174 9396 Glucose [Mass/Vol] 126 mg/dL High 74 - 99 mg/dL [facility] Interpretation and review of laboratory results Abnormal [facility] Potassium [Moles/Vol] 4.4 mmol/L 3.5 - 5.3 mmol/L [facility] Sodium [Moles/Vol] 138 mmol/L 136 - 145 mmol/L [facility] Urea nitrogen [Mass/Vol] 14 mg/dL 6 - 23 mg/dL [facility] Anion gap [Moles/Vol] 12 mmol/L Normal 10-20 [facility] Comment on above: Performed By: #### 2 4321-2 ####JANETH MCDONALDTZER L ([id number])[facility] ([facility])[address] [place] [address] Calcium [Mass/Vol] 8.4 mg/dL Low 8.6-10.6 [facility] Comment on above: Performed By: #### 2 4321-2 ####JANETH CONNORMOTZER L ([id number])[facility] ([facility])[address]369 [place] [address] Chloride [Moles/Vol] 103 mmol/L Normal 98-107 [facility] Comment on above: Performed By: #### 2 4321-2 ####JANETH SCHMOTZER L (59924)[facility] ([facility])[address] [place] [address] CO2 [Moles/Vol] 27 mmol/L Normal 21-32 [facility] Comment on above: Performed By: #### 2 4321-2 ####JANETH CONNORMOTZER L ([id number])[facility] ([facility])[address] [place] [address] Creatinine [Mass/Vol] 0.94 mg/dL Normal 0.50-1.05 [facility] Comment on above: Performed By: #### 2 4321-2 ####JANETH CONNORMOTZER L (57285)[facility] ([facility])[address] [place] [address] Glomerular filtration rate/1.73 sq M.predicted 73 mL/min/1.73m*2 Normal >60 [facility] Comment on above: Result Comment: Calc ulations of estimated GFR are performed using the 2020 CKD-EPI Study Refit equation without the race variable for the IDMS-Traceable creatinine methods.https://jasn.asnjournals.org/content// N.3999968541 Performed By: #### 2 4321-2 ####JANETH Galo ([id number])[facility] ([facility])[address] [place] [address] Glucose [Mass/Vol] 126 mg/dL High 74-99 [facility] Comment on above: Performed By: #### 2 4321-2 ####JANETH Galo ([id number])[facility] ([facility])[address] [place] [address] Potassium [Moles/Vol] 4.4 mmol/L Normal 3.5-5.3 [facility] Comment on above: Performed By: #### 2 4321-2 ####JANETH Galo (77651)[facility] ([facility])[address] [place] [address] Sodium [Moles/Vol] 138 mmol/L Normal 136-145 [facility] Comment on above: Performed By: #### 2 4321-2 ####JANETH Galo ([id number])[facility] ([facility])[address] [place] [address] Urea nitrogen [Mass/Vol] 14 mg/dL Normal 6-23 [facility] Comment on above: Performed By: #### 2 4321-2 ####JANETH Galo ([id number])[facility] ([facility])[address] [place] [address] CBC panel Auto (Bld)on 03-13 Erythrocyte distribution width (RBC) [Ratio] 17.2 % High 11.5 - 14.5 % [facility] Hematocrit (Bld) [Volume fraction] 28.8 % Low 36.0 - 46.0 % [facility] Hemoglobin (Bld) [Mass/Vol] 8.1 g/dL Low 12.0 - 16.0 g/dL [facility] Interpretation and review of laboratory results Abnormal [facility] MCH (RBC) [Entitic mass] 26.6 pg 26.0 - 34.0 pg [facility] MCHC (RBC) [Mass/Vol] 28.1 g/dL Low 32.0 - 36.0 g/dL [facility] MCV (RBC) [Entitic vol] 94 fL 80 - 100 fL [facility] Nucleated RBC/100 WBC (Bld) [Ratio] 0 % [facility] Platelets (Bld) [#/Vol] 344 10*3/uL [facility] RBC (Bld) [#/Vol] 3.05 10*6/uL Low [facility] WBC (Bld) [#/Vol] 20.1 10*3/uL [facility]rythrocyte distribution width (RBC) [Ratio] 17.2 % High 11.5-14.5 [facility] Comment on above: Performed By: #### 5 8410-2 ####JANETH Galo ([id number])[facility] ([facility])[address] [place] [address] Hematocrit (Bld) [Volume fraction] 28.8 % Low 36.0-46.0 [facility] Comment on above: Performed By: #### 5 8410-2 ####JANETH Galo ([id number])[facility] ([facility])[address]752 [place] [address] Hemoglobin (Bld) [Mass/Vol] 8.1 g/dL Low 12.0-16.0 [facility] Comment on above: Performed By: #### 5 8410-2 ####JANETH Galo ([id number])[facility] ([facility])[address] [place] [address] MCH (RBC) [Entitic mass] 26.6 pg Normal 26.0-34.0 [facility] Comment on above: Performed By: #### 5 8410-2 ####JANETH Galo ([id number])[facility] ([facility])[address]99 [place] [address] MCHC (RBC) [Mass/Vol] 28.1 g/dL Low 32.0-36.0 [facility] Comment on above: Performed By: #### 5 8410-2 ####JANETH Galo (21402)[facility] ([facility])[id number] [place] [address] MCV (RBC) [Entitic vol] 94 fL Normal 80-100 [facility] Comment on above: Performed By: #### 5 8410-2 ####JANETH Galo ([id number])[facility] ([facility])[address] [place] [address] Nucleated RBC/100 WBC (Bld) [Ratio] 0.0 /100 WBCs Normal 0.0-0.0 [facility] Comment on above: Performed By: #### 5 8410-2 ####JANETH Galo ([id number])[facility] ([facility])[id number] [place] [address] [id number] Platelets (Bld) [#/Vol] 344 x10*3/uL Normal 150-450 [facility] Comment on above: Performed By: #### 5 8410-2 ####JANETH Galo ([id number])[facility] ([facility])[address] [place] [address] 73089 RBC (Bld) [#/Vol] 3.05 x10*6/uL Low 4.00-5.20 [facility] Comment on above: Performed By: #### 5 8410-2 ####JANETH Galo ([id number])[facility] ([facility])[id number] [place] [address] 05549 WBC (Bld) [#/Vol] 20.1 x10*3/uL High 4.4-11.3 [facility] Comment on above: Performed By: #### 5 8410-2 ####JANETH Galo ([id number])[facility] ([facility])[id number] [place] [address] No Panel Informationon 03-13 [facility] Vancomycinon 03-13-2024 Vancomycin [Mass/Vol] 12.9 ug/mL 5.0 - 20.0 ug/mL [facility] Vancomycin [Mass/Vol] 12.9 ug/mL Normal 5.0-20.0 [facility] Comment on above: Order Comment: Vanco mycin [...] Performed By: #### 2 0578-1 ####JANETH Galo ([id number])[facility] ([facility])[address] [place] [address] Vancomycin [Mass/Vol]on 02-18 Interpretation and review of laboratory results [facility] Vancomycin levels can be monitored [...] 30.0-40.0 ug/mL Trough (all ages): 10.0-20.0 ug/mL [facility] Bacteria identifiedon 2024 Bacteria identified Cx Nom (Unsp spec) [facility] Comment on above: Performed By: #### 6 463-4 ####JANETH Galo ([id number])[facility] ([facility])[address] [place] [address] Bacteria identified Cx Nom (Unsp spec) [facility] Comment on above: Performed By: #### 6 463-4 ####JANETH Galo ([id number])[facility] ([facility])[address] [place] [address] Bacteria identified Cx Nom (Unsp spec) [facility] Comment on above: Performed By: #### 6 463-4 ####JANETH Galo ([id number])[facility] ([facility])[address] [place] [address] CT Lower leg - right WO timoteo [...] Siddharth Frankel 03/12/2024 12:56 PM Dictation workstation: [id number] Interpreted By: Siddharth Jang, and Carol Boo STUDY: CT of the right tibia/fibula without intravenous contrast dated 03/12/2024. INDICATION: Signs/Symptoms:chronic osteomyelitis COMPARISON: None. ACCESSION NUMBER(S): [id number] ORDERING CLINICIAN: CRUZ GOODMAN TECHNIQUE: Axial CT [...] Siddharth Frankel MD - 03/12/2024 Interpreted By: Siddhatrh Frankel and Bartolomei Aguilar Christopher STUDY: CT of the right tibia/fibula without intravenous contrast dated 03/12/2024. INDICATION: Signs/Symptoms:chronic osteomyelitis COMPARISON: None. ACCESSION NUMBER(S): [id number] ORDERING CLINICIAN: CRUZ GOODMAN TECHNIQUE: Axial CT [...] 3.8 cm in depth. Diffuse demineralization. Patella Cullen is again noted. Small knee joint effusion. [...] Siddharth Frankel 03/12/2024 12:56 PM Dictation workstation: [id number] [facility] Work Phone: Radiology Study observation (narrative) [facility] Work Phone: CT Lower leg - right WO cont rastOrdered By: Siddharth Frankel on 03-12-2024 [facility] Work Phone: ECG 12-LEADon 03-12-2024 ECG 12-LEAD Ventricular Rate 72 Atrial Rate 72 P-R Interval 166 QRS Duration 88 Q-T Interval 372 QTC Calculation(Bazett) 407 P Conway 56 R Conway 37 T Conway 42 QRS Count 12 Q Onset 214 P Onset 131 P Offset 193 T Offset 400 QTC Fredericia 395 Diagnosis Normal sinus rhythm with sinus arrhythmia Normal ECG When compared with ECG of 12-MAR-2024 00:10, No significant change was found Confirmed by Moe Cason ([id number]) on 03/27/2024 1:37:13 PM Normal [facility] ([facility]3] FL FLUORO IMAGES NO CHARGEon 03-12-2024 FL FLUORO IMAGES NO CHARGE These images are not reportable by radiology and will not be interpreted by Radiologists. Normal [facility] Comment on above: Order Comment: On ca ll to OR Fungus identifiedon 03-12-19 Fungus identified Cx Nom (Unsp spec) [facility] Comment on above: Performed By: #### 5 80-1 ####JANETH Galo ([id number])[facility] ([facility])[address] [place] [address] Fungus identified Cx Nom (Unsp spec) Normal [facility] Comment on above: Performed By: #### 5 80-1 ####JANETH Galo ([id number])[facility] ([facility])[address] [place] [address] Fungus identified Cx Nom (Unsp spec) [facility] Comment on above: Performed By: #### 5 80-1 ####JANETH Galo ([id number])[facility] ([facility])[address] [place] [address] 79598 XR Chest Single viewon 03-12 1. No evidence of ac kake cardiopulmonary process. I personally reviewed the images/study and I agree with the findings as stated by Carlos Wren MD (resident) . This study was interpreted at [place], [place]. MACRO: None Signed by: Osmel Viera 03/12/2024 7:30 AM Dictation workstation: [id number] MMODAL Interpreted By: Osmel Viera and Velez-Martinez Osvaldo STUDY: XR CHEST 1 VIEW; 03/11/2024 7:47 pm INDICATION: Signs/Symptoms:preop. COMPARISON: None. ACCESSION NUMBER(S): [id number] ORDERING CLINICIAN: CRUZ GOODMAN FINDINGS: AP radiograph [...] pm INDICATION: Signs/Symptoms:preop. COMPARISON: None. ACCESSION NUMBER(S): [id number] ORDERING CLINICIAN: CRUZ GOODMAN FINDINGS: AP radiograph [...] (resident) . This study was interpreted at [facility], [place], [place]. MACRO: None Signed by: Osmel Viera 03/12/2024 7:30 AM Dictation workstation: [id number] [facility] Work Phone: XR Chest Single viewOrdered By: Osmel Viera on 03-12-2024 [facility] Work Phone: XR tomography Unspecified reynaldo dy regionon 03-12-2024 These images are not reportable by radiology and will not be interpreted by Radiologists. IMAGING Bacteria identifiedon 2024 Bacteria identified Cx Nom (Bld) Normal [facility] Comment on above: Performed By: #### 6 00-7 ####JANETH Galo ([id number])[facility] ([facility])[id number] [place] [address] Basic metabolic 2000 panelon 03-11-2024 Anion gap [Moles/Vol] 11 mmol/L 10 - 2 0 mmol/L [facility] Calcium [Mass/Vol] 9.5 mg/dL 8.6 - 10. 6 mg/dL [facility] Chloride [Moles/Vol] 100 mmol/L 98 - 10 7 mmol/L [facility] CO2 [Moles/Vol] 28 mmol/L 21 - 32 mmol/L [facility] Creatinine [Mass/Vol] 0.79 mg/dL 0.50 - 1.05 mg/dL [facility] GFR/1.73 sq M.predicted among non-blacks MDRD (S/P/Bld) [Vol rate/Area] 90 mL/min/{1.73_m2} - PINF [facility] Comment on above: Calculations of bill mated GFR are performed using the 2020 CKD-EPI Study Refit equation without the race variable for the IDMS-Traceable creatinine methods. https://jasn.asnjournals.org/content//ASN.095946 8141 Glucose [Mass/Vol] 95 mg/dL 74 - 99 mg/dL [facility] Potassium [Moles/Vol] 4.6 mmol/L 3.5 - 5.3 mmol/L [facility] Sodium [Moles/Vol] 134 mmol/L Low 136 - 145 mmol/L [facility] Urea nitrogen [Mass/Vol] 11 mg/dL 6 - 23 mg/dL [facility] Anion gap [Moles/Vol] 11 mmol/L Normal 10-20 [facility] Comment on above: Performed By: #### 2 4321-2 ####JANETH Galo ([id number])[facility] ([facility])[address] [place] [address] Calcium [Mass/Vol] 9.5 mg/dL Normal 8.6-10.6 [facility] Comment on above: Performed By: #### 2 4321-2 ####JANETH Galo ([id number])[facility] ([facility])[address] [place] [address] Chloride [Moles/Vol] 100 mmol/L Normal 98-107 [facility] Comment on above: Performed By: #### 2 4321-2 ####JANETH GRAFF L ([id number])[facility] ([facility])[address] [place] [address] CO2 [Moles/Vol] 28 mmol/L Normal 21-32 [facility] Comment on above: Performed By: #### 2 4321-2 ####JANETH GRAFF L ([id number])[facility] ([facility])[address] [place] [address] Creatinine [Mass/Vol] 0.79 mg/dL Normal 0.50-1.05 [facility] Comment on above: Performed By: #### 2 4321-2 ####JANETH GRAFF L ([id number])[facility] ([facility])[address] [place] [address] Glomerular filtration rate/1.73 sq M.predicted 90 mL/min/1.73m*2 Normal >60 [facility] Comment on above: Result Comment: Calc ulations of estimated GFR are performed using the 2020 CKD-EPI Study Refit equation without the race variable for the IDMS-Traceable creatinine methods.https://jasn.asnjournals.org/content/early/ N.9218151640 Performed By: #### 2 4321-2 ####JANEHT Galo ([id number])[facility] ([facility])[address] [place] [address] Glucose [Mass/Vol] 95 mg/dL Normal 74-99 [facility] Comment on above: Performed By: #### 2 4321-2 ####JANETH Galo ([id number])[facility] ([facility])[address] [place] [address] Potassium [Moles/Vol] 4.6 mmol/L Normal 3.5-5.3 [facility] Comment on above: Performed By: #### 2 4321-2 ####JANETH Galo ([id number])[facility] ([facility])[address] [place] [address] Sodium [Moles/Vol] 134 mmol/L Low 136-145 [facility] Comment on above: Performed By: #### 2 4321-2 ####JANETH Galo ([id number])[facility] ([facility])[address] [place] [address] Urea nitrogen [Mass/Vol] 11 mg/dL Normal 6-23 [facility] Comment on above: Performed By: #### 2 4321-2 ####JANETH Galo ([id number])[facility] ([facility])[address] [place] [address] Blood type and Indirect anti body screen panel (Bld)on 03-11-2024 ABO group Nom (Bld) A Normal [facility] [place] [facility] Comment on above: Performed By: #### 3 4532-2 ####JANETH Galo ([id number])[facility] ([facility] [place] [address] Blood group antibody screen Ql Negative [facility] Comment on above: Performed By: #### 3 4532-2 ####JANETH Galo ([id number])[facility] ([facility])[address] [place] [address] D Ag Ql (Bld) Positive Normal [facility] Comment on above: Performed By: #### 3 4532-2 ####JANETH Galo ([id number])[facility] ([facility])[address] [place] [address] C reactive proteinon 025 CRP [Mass/Vol] 2.53 mg/dL High <1.00 [facility] Comment on above: Performed By: #### 1 988-5 ####JANETH Galo ([id number])[facility] ([facility])[address] [place] [address] C-reactive proteinon 025 CRP [Mass/Vol] 2.53 mg/dL High NINF - 1.00 mg/dL [facility] CBC W Auto Differential pane l (Bld)on 03-11-2024 Basophils (Bld) [#/Vol] 0.08 10*3/uL [facility] Basophils/100 WBC (Bld) 0.6 % 0.0 - 2.0 % [facility] Eosinophils (Bld) [#/Vol] 0.68 10*3/uL [facility] Eosinophils/100 WBC (Bld) 5.2 % 0.0 - 6.0 % [facility] Erythrocyte distribution width (RBC) [Ratio] 17.1 % High 11.5 - 14.5 % [facility] Hematocrit (Bld) [Volume fraction] 39.7 % 36.0 - 46.0 % [facility] Hemoglobin (Bld) [Mass/Vol] 12.2 g/dL 12.0 - 16.0 g/dL [facility] Immature granulocytes (Bld) [#/Vol] 0.03 10*3/uL [facility] Immature granulocytes/100 WBC (Bld) 0.2 % 0.0 - 0.9 % [facility] Comment on above: Immature Granulocyte Count (IG) includes promyelocytes, myelocytes and metamyelocytes but does not include bands. Percent differential counts (%) should be interpreted in the context of the absolute cell counts (cells/UL). Interpretation and review of laboratory results Abnormal [facility] Lymphocytes (Bld) [#/Vol] 4.75 10*3/uL [facility] Lymphocytes/100 WBC (Bld) 36 % 13.0 - 44.0 % [facility] MCH (RBC) [Entitic mass] 26.6 pg 26.0 - 34.0 pg [facility] MCHC (RBC) [Mass/Vol] 30.7 g/dL Low 32.0 - 36.0 g/dL [facility] MCV (RBC) [Entitic vol] 87 fL 80 - 100 fL [facility] Monocytes (Bld) [#/Vol] 0.79 10*3/uL [facility] Monocytes/100 WBC (Bld) 6 % 2.0 - 10.0 % [facility] Neutrophils (Bld) [#/Vol] 6.86 10*3/uL [facility] Comment on above: Percent differential counts (%) should be interpreted in the context of the absolute cell counts (cells/uL). Neutrophils/100 WBC (Bld) 52 % 40.0 - 80.0 % [facility] Nucleated RBC/100 WBC (Bld) [Ratio] 0 % [facility] Platelets (Bld) [#/Vol] 501 10*3/uL High [facility] RBC (Bld) [#/Vol] 4.58 10*6/uL [facility] WBC (Bld) [#/Vol] 13.2 10*3/uL High [facility] [place] [facility] Basophils (Bld) [#/Vol] 0.08 x10*3/uL Normal 0.00-0.10 [facility] Comment on above: Performed By: #### 5 7021-8 ####JANETH Galo ([id number])[facility] ([facility])[address] [place] [address] Basophils/100 WBC (Bld) 0.6 % Normal 0.0-2.0 [facility] Comment on above: Performed By: #### 5 7021-8 ####JANETH Galo ([id number])[facility] ([facility])[address] [place] [address] Eosinophils (Bld) [#/Vol] 0.68 x10*3/uL Normal 0.00-0.70 [facility] Comment on above: Performed By: #### 5 7021-8 ####JANETH Galo ([id number])[facility] ([facility])[address] [place] [address] Eosinophils/100 WBC (Bld) 5.2 % Normal 0.0-6.0 [facility] Comment on above: Performed By: #### 5 7021-8 ####JANETH Galo ([id number])[facility] ([facility])[address] [place] [address] Erythrocyte distribution width (RBC) [Ratio] 17.1 % High 11.5-14.5 [facility] Comment on above: Performed By: #### 5 7021-8 ####JANETH Galo ([id number])[facility] ([facility])[address] [place] [address] Hematocrit (Bld) [Volume fraction] 39.7 % Normal 36.0-46.0 [facility] Comment on above: Performed By: #### 5 7021-8 ####JANETH Galo ([id number])[facility] ([facility])[address] [place] [address] Hemoglobin (Bld) [Mass/Vol] 12.2 g/dL Normal 12.0-16.0 [facility] Comment on above: Performed By: #### 5 7021-8 ####JANETH Galo ([id number])[facility] ([facility])[address] [place] [address] Immature granulocytes (Bld) [#/Vol] 0.03 x10*3/uL Normal 0.00-0.70 [facility] Comment on above: Performed By: #### 5 7021-8 ####JANETH Galo ([id number])[facility] ([facility])[address] [place] [address] Immature granulocytes/100 WBC (Bld) 0.2 % Normal 0.0-0.9 [facility] Comment on above: Result Comment: Catrachita ture Granulocyte Count (IG) includes promyelocytes, myelocytes and metamyelocytes but does not include bands. Percent differential counts (%) should be interpreted in the context of the absolute cell counts (cells/UL). Performed By: #### 5 7021-8 ####JANETH Galo ([id number])[facility] ([facility])[address] [place] [address] Lymphocytes (Bld) [#/Vol] 4.75 x10*3/uL Normal 1.20-4.80 [facility] Comment on above: Performed By: #### 5 7021-8 ####JANETH Galo ([id number])[facility] ([facility])[address] [place] [address] Lymphocytes/100 WBC (Bld) 36.0 % Normal 13.0-44.0 [facility] Comment on above: Performed By: #### 5 7021-8 ####JANETH Galo ([id number])[facility] ([facility])[address] [place] [address] MCH (RBC) [Entitic mass] 26.6 pg Normal 26.0-34.0 [facility] Comment on above: Performed By: #### 5 7021-8 ####JANETH Galo ([id number])[facility] ([facility])[address] [place] [address] MCHC (RBC) [Mass/Vol] 30.7 g/dL Low 32.0-36.0 [facility] Comment on above: Performed By: #### 5 7021-8 ####JANETH Galo ([id number])[facility] ([facility])[address] [place] [address] MCV (RBC) [Entitic vol] 87 fL Normal 80-100 [facility] Comment on above: Performed By: #### 5 7021-8 ####JANETH Galo ([id number])[facility] ([facility])[address] [place] [address] Monocytes (Bld) [#/Vol] 0.79 x10*3/uL Normal 0.10-1.00 [facility] Comment on above: Performed By: #### 5 7021-8 ####JANETH Galo ([id number])[facility] ([facility])[address] [place] [address] Monocytes/100 WBC (Bld) 6.0 % Normal 2.0-10.0 [facility] Comment on above: Performed By: #### 5 7021-8 ####JANETH Galo ([id number])[facility] ([facility])[address] [place] [address] Neutrophils (Bld) [#/Vol] 6.86 x10*3/uL Normal 1.20-7.70 [facility] Comment on above: Result Comment: Perc ent differential counts (%) should be interpreted in the context of the absolute cell counts (cells/uL). Performed By: #### 5 7021-8 ####JANETH Galo ([id number])[facility] ([facility])[address] [place] [address] Neutrophils/100 WBC (Bld) 52.0 % Normal 40.0-80.0 [facility] Comment on above: Performed By: #### 5 7021-8 ####JANETH Galo ([id number])[facility] ([facility])[address] [place] [address] Nucleated RBC/100 WBC (Bld) [Ratio] 0.0 /100 WBCs Normal 0.0-0.0 [facility] Comment on above: Performed By: #### 5 7021-8 ####JANETH Galo ([id number])[facility] ([facility])[address] [place] [address] Platelets (Bld) [#/Vol] 501 x10*3/uL High 150-450 [facility] Comment on above: Performed By: #### 5 7021-8 ####JANETH RANGELER L ([id number])[facility] ([facility])[address] [place] [address] RBC (Bld) [#/Vol] 4.58 x10*6/uL Normal 4.00-5.20 [facility] Comment on above: Performed By: #### 5 7021-8 ####JANETH CONNORMOTZER L ([id number])[facility] ([facility])[address] [place] [address] WBC (Bld) [#/Vol] 13.2 x10*3/uL High 4.4-11.3 [facility] Comment on above: Performed By: #### 5 7021-8 ####JANETH Galo ([id number])[facility] ([facility])[address] [place] [address] TIBIA FIBULA RIGHT WO IV CONTRASTon 03-11-2024 CT TIBIA FIBULA RIGHT WO IV CONTRAST Normal [facility] Choriogonadotropin.beta subu niton 03-11-2024 HCG.beta subunit Qn m[IU]/mL Normal <5 [facility] Comment on above: Order Comment: Total HCG measurement is performed using the Siemens Atellica immunoassay which detects intact HCG and free beta HCG subunit. This test is not indicated for use as a tumor marker. HCG testing is performed using a different test methodology at [facility] than other [facility]. Direct result comparison should only be made within the same method. Performed By: #### 2 1198-7 ####JANETH Galo ([id number])[facility] ([facility])[address] [place] [address] ESR Westergren method (Bld) [Velocity]on 03-11-2024 ESR (Bld) [Velocity] 52 mm/h High 0 - 30 mm/h [facility] Interpretation and review of laboratory results Abnormal [facility] ESR (Bld) [Velocity] 52 mm/h High 0-30 [facility] Comment on above: Performed By: #### 4 537-7 ####JANETH Galo ([id number])[facility] ([facility])[address] [place], [place] [address] HCG.beta subunit Qnon 2024 Interpretation and review of laboratory results Normal [facility] Total HCG measuremen t is performed using the Siemens AgilencellPackback immunoassay which detects intact HCG and free beta HCG subunit. This test is not indicated for use as a tumor marker. HCG testing is performed using a different test methodology at [facility] than other [facility]. Direct result comparison should only be made within the same method. [facility] No Panel Informationon 03-11 [facility] Interpretation and review of laboratory results Abnormal [facility] PT and aPTT panel Coag (PPP) on 03-11-2024 aPTT Coag (PPP) [Time] 44 s High [facility] INR Coag (PPP) [Relative time] 1 {INR} 0.9 - 1.1 [facility] Interpretation and review of laboratory results Abnormal [facility] PT Coag (PPP) [Time] 10.8 s [facility] The APTT is no longe r used for monitoring Unfractionated Heparin Therapy. For monitoring Heparin Therapy, use the Heparin Assay. [facility] aPTT Coag (PPP) [Time] 44 s High 27-38 [facility] Comment on above: Order Comment: The A PTT is no longer used for monitoring Unfractionated Heparin Therapy. For monitoring Heparin Therapy, use the Heparin Assay. Performed By: #### 3 4529-8 ####JANETH Galo ([id number])[facility] ([facility])[address] [place] [address] INR Coag (PPP) [Relative time] 1.0 Normal 0.9-1.1 [facility] Comment on above: Order Comment: The A PTT is no longer used for monitoring Unfractionated Heparin Therapy. For monitoring Heparin Therapy, use the Heparin Assay. Performed By: #### 3 4529-8 ####JANETH Galo ([id number])[facility] ([facility])[address] [place] [address] PT Coag (PPP) [Time] 10.8 s Normal 9.8-12.8 [facility] Comment on above: Order Comment: The A PTT is no longer used for monitoring Unfractionated Heparin Therapy. For monitoring Heparin Therapy, use the Heparin Assay. Performed By: #### 3 4529-8 ####JANETH Galo ([id number])[facility] ([facility])[address] [place] [address] XR CHEST 1 VIEWon 03-11-2024 XR CHEST 1 VIEW Normal [facility] XR Chest Single viewon 03-11 Radiology Study observation (narrative) [facility] Work Phone: hCG, quantitative, on 03-11-2024 HCG.beta subunit Qn NINF [facility] 02-03-2024 CNPN Telephone (TAVARES) ----- DEIDRA DE LA CRUZ ([id number]) 1970 F Date Time Provider Department 02/03/24 BIJAN ELMORE During your visit today, we recorded the following information about you: Carlo Miranda LPN 02/03/2024 1:49 PM Signed Received orders from lopez. Placed in provider's inbox for review. Route to [place] fax Allergies As of Date: 02/03/2024 Noted Allergy Reaction PENICILLIN 06/05/2015 16 - Unknown Date Reviewed: 11/18/2023 Reviewed by: Carlo Miranda LPN - Fully Assessed Reason for Visit: Orders [411] Cmt: lopez Prescriptions as of 02/03/2024 - [...] Encounter Status:Closed by CARLO MIRANDA on 02/03/24 [facility] 01-27-2024 BRITNEY Telephone (TAVARES) ----- DEIDRA DE LA CRUZ ([id number]) 1970 F Date Time Provider Department 01/27/24 [...] Status:Closed by CARLO MIRANDA on 01/27/24 Normal [facility] No Panel Informationon 01-14 [facility] Renal function 2000 panelon 01-15-2024 Albumin BCP dye [Mass/Vol] 3.1 g/dL Low 3.4 - 5.0 g/dL [facility] Anion gap [Moles/Vol] 12 mmol/L 10 - 2 0 mmol/L [facility] Calcium [Mass/Vol] 9 mg/dL 8.6 - 10. 6 mg/dL [facility] Chloride [Moles/Vol] 103 mmol/L 98 - 10 7 mmol/L [facility] CO2 [Moles/Vol] 30 mmol/L 21 - 32 mmol/L [facility] Creatinine [Mass/Vol] 0.78 mg/dL 0.50 - 1.05 mg/dL [facility] eGFR - PINF [facility] Comment on above: Calculations of bill mated GFR are performed using the 2020 CKD-EPI Study Refit equation without the race variable for the IDMS-Traceable creatinine methods. https://jasn.asnjournals.org/content/early/ASN.220695 8847 Glucose [Mass/Vol] 129 mg/dL High 74 - 99 mg/dL [facility] Interpretation and review of laboratory results Abnormal [facility] Phosphate [Mass/Vol] 4.2 mg/dL 2.5 - 4 .9 mg/dL [facility] [facility] Comment on above: MILD HEMOLYSIS DETEC ROSANNA. [...] [Moles/Vol] 4.2 mmol/L 3.5 - 5.3 mmol/L [facility] Comment on above: MILD HEMOLYSIS DETEC ROSANNA. The result may be falsely elevated due to hemolysis or other interferents. Clinical correlation is recommended. Repeat testing may be considered. Sodium [Moles/Vol] 141 mmol/L 136 - 145 mmol/L [facility] Urea nitrogen [Mass/Vol] 12 mg/dL 6 - 23 mg/dL [facility] Albumin BCP dye [Mass/Vol] 3.1 g/dL Low 3.4-5.0 [facility] Comment on above: Performed By: #### 2 4362-6 ####JANETH Galo ([id number])[facility] ([facility])[address] [place] [address] Anion gap [Moles/Vol] 12 mmol/L Normal 10-20 [facility] Comment on above: Performed By: #### 2 4362-6 ####JANETH Galo ([id number])[facility] ([facility])[address] [place] [address] Calcium [Mass/Vol] 9.0 mg/dL Normal 8.6-10.6 [facility] Comment on above: Performed By: #### 2 4362-6 ####JANETH Galo ([id number])[facility] ([facility])[address] [place] [address] Chloride [Moles/Vol] 103 mmol/L Normal 98-107 [facility] Comment on above: Performed By: #### 2 4362-6 ####JANETH Galo ([id number])[facility] ([facility])[address] [place] [address] CO2 [Moles/Vol] 30 mmol/L Normal 21-32 [facility] Comment on above: Performed By: #### 2 4362-6 ####JANETH Galo ([id number])[facility] ([facility])[address] [place] [address] Creatinine [Mass/Vol] 0.78 mg/dL Normal 0.50-1.05 [facility] Comment on above: Performed By: #### 2 4362-6 ####JANETH Galo ([id number])[facility] ([facility])[address] [place] [address] GFR/1.73 sq M.predicted MDRD (S/P/Bld) [Vol rate/Area] mL/min/{1.73_m2} Normal >60 [facility] Comment on above: Result Comment: Calc ulations of estimated GFR are performed using the 2020 CKD-EPI Study Refit equation without the race variable for the IDMS-Traceable creatinine methods.https://jasn.asnjournals.org/content/early/ N.2728117020 Performed By: #### 2 4362-6 ####JANETH Galo ([id number])[facility] ([facility])[address] [place] [address] Glucose [Mass/Vol] 129 mg/dL High 74-99 [facility] Comment on above: Performed By: #### 2 4362-6 ####JANETH Galo ([id number])[facility] ([facility])[address] [place] [address] Phosphate [Mass/Vol] 4.2 mg/dL Normal 2.5-4.9 [facility] Comment on above: Result Comment: MILD [...] Performed By: #### 2 4362-6 ####JANETH Galo ([id number])[facility] ([facility])[address] [place] [address] Potassium [Moles/Vol] 4.2 mmol/L Normal 3.5-5.3 [facility] Comment on above: Result Comment: MILD HEMOLYSIS DETECTED. The result may be falsely elevated due to hemolysis or other interferents. Clinical correlation is recommended. Repeat testing may be considered. Performed By: #### 2 4362-6 ####JANETH Galo ([id number])[facility] ([facility])[address] [place] [address] Sodium [Moles/Vol] 141 mmol/L Normal 136-145 [facility] Comment on above: Performed By: #### 2 4362-6 ####JANETH Galo ([id number])[facility] ([facility])[address] [place] [address] Urea nitrogen [Mass/Vol] 12 mg/dL Normal 6-23 [facility] Comment on above: Performed By: #### 2 4362-6 ####JANETH Galo ([id number])[facility] ([facility])[address] [place] [address] Vancomycinon 01-15-2024 Vancomycin [Mass/Vol] 17.2 ug/mL 5.0 - 20.0 ug/mL [facility] Vancomycin [Mass/Vol] 17.2 ug/mL Normal 5.0-20.0 [facility] Comment on above: Order Comment: Vanco mycin [...] Performed By: #### 2 0578-1 ####JANETH Galo ([id number])[facility] ([facility])[address] [place] [address] Vancomycin [Mass/Vol]on 12-19 Interpretation and review of laboratory results Normal [facility] Vancomycin levels can be monitored according [...] 30.0-40.0 ug/mL Trough (all ages): 10.0-20.0 ug/mL [facility] MRSA isol Org specific cx Ql (Nose)Ordered By: Ketty Pierson on 01-13-2024 Interpretation and review of laboratory results Normal [facility] Staphylococcus sp identified Org specific cx Nom (Unsp spec) No Staphylococcus aureus isolated [facility] Vancomycinon 01-12-2024 Vancomycin [Mass/Vol] 13.6 ug/mL 5.0 - 20.0 ug/mL [facility] Vancomycin [Mass/Vol] 13.6 ug/mL Normal 5.0-20.0 [facility] Comment on above: Order Comment: Vanco mycin [...] Performed By: #### 2 0578-1 ####JANETH Galo ([id number])[facility] ([facility])[address] [place] [address] Vancomycin [Mass/Vol]on 12-19 Interpretation and review of laboratory results Normal [facility] Vancomycin levels can be monitored according [...] 30.0-40.0 ug/mL Trough (all ages): 10.0-20.0 ug/mL [facility] Bacteria identified Cx Nom ( Unsp spec)on 01-11-2024 Interpretation and review of laboratory results Abnormal [facility] Work Phone: Microscopic observation Gram stain Nom (Unsp spec) No polymorphonuclear leukocytes seen Abnormal [facility] Work Phone: Microscopic observation Gram stain Nom (Unsp spec) Positive Abnormal [facility] Work Phone: [facility] Work Phone: Interpretation and review of laboratory results Abnormal [facility] Work Phone: Microscopic observation Gram stain Nom (Unsp spec) (2+) Few Polymorphonuclear leukocytes [facility] Work Phone: Microscopic observation Gram stain Nom (Unsp spec) No organisms seen [facility] Work Phone: [facility] Work Phone: Interpretation and review of laboratory results Abnormal [facility] Work Phone: Microscopic observation Gram stain Nom (Unsp spec) (1+) Rare Polymorphonuclear leukocytes [facility] Work Phone: Microscopic observation Gram stain Nom (Unsp spec) No organisms seen [facility] Work Phone: [facility] Work Phone: Interpretation and review of laboratory results Abnormal [facility] Work Phone: Microscopic observation Gram stain Nom (Unsp spec) (3+) Moderate Polymorphonuclear leukocytes [facility] Work Phone: Microscopic observation Gram stain Nom (Unsp spec) No organisms seen [facility] Work Phone: [facility] Work Phone: Bacteria identified Cx Nom ( Unsp spec)Ordered By: Linda Campos on 01-11-2024 Interpretation and review of laboratory results Abnormal [facility] Microscopic observation Gram stain Nom (Unsp spec) (2+) Few Polymorphonuclear leukocytes [facility] Microscopic observation Gram stain Nom (Unsp spec) No organisms seen [facility] Bedside PICC Imagingon 01-10 These images are not reportable by radiology and will not be interpreted by Radiologists. IMAGING PICC >5 YR BEDSIDE IMAGINGon 01-11-2024 PICC >5 YR BEDSIDE IMAGING These images are not reportable by radiology and will not be interpreted by Radiologists. Normal [facility] Staphylococcus aureus.methic illin resistant isolateon 01-11-2024 MRSA isol Org specific cx Ql (Nose) Normal [facility] Comment on above: Performed By: #### 5 2969-3 ####JANETH Galo ([id number])[facility] ([facility])[address] [place] [address] Tissue/Wound Culture/Smearon 01-11-2024 Bacteria identified Cx Nom (Unsp spec) (1+) Rare Staphylococcus aureus Abnormal [facility] Work Phone: Comment on above: For antibiotic susce ptibility results see Specimen # - [id number] Bacteria identified Cx Nom (Unsp spec) (1+) Rare Staphylococcus aureus Abnormal [facility] Work Phone: Comment on above: For antibiotic susce ptibility results see Specimen # - [id number] Bacteria identified Cx Nom (Unsp spec) (2+) Few Methicillin Resistant Staphylococcus aureus (MRSA) Abnormal [facility] Work Phone: Comment on above: Methicillin (Oxacill in) resistant Staphylococci are resistant to all currently available Penicillins, Beta-lactam/Beta-lactamase inhibitor combinations (including Ampicillin/Sulbactam, Amoxicillin/Clavulanate and Pipercillin/Tazobactam), Carbapenems and Cephalosporins (except Ceftaroline). Bacteria identified Cx Nom (Unsp spec) (3+) Moderate Staphylococcus aureus Abnormal [facility] Work Phone: Comment on above: For antibiotic susce ptibility results see Specimen # - [id number] Tissue/Wound Culture/SmearOr dered By: Linda Campos on 01-11-2024 Bacteria identified Cx Nom (Unsp spec) (2+) Few Staphylococcus aureus Abnormal [facility] Comment on above: For antibiotic susce ptibility results see Specimen # - [id number] Basic metabolic 2000 panelon 01-10-2024 Anion gap [Moles/Vol] 13 mmol/L 10 - 2 0 mmol/L [facility] Calcium [Mass/Vol] 9 mg/dL 8.6 - 10. 6 mg/dL [facility] Chloride [Moles/Vol] 102 mmol/L 98 - 10 7 mmol/L [facility] CO2 [Moles/Vol] 28 mmol/L 21 - 32 mmol/L [facility] Creatinine [Mass/Vol] 0.81 mg/dL 0.50 - 1.05 mg/dL [facility] GFR/1.73 sq M.predicted among non-blacks MDRD (S/P/Bld) [Vol rate/Area] 88 mL/min/{1.73_m2} - PINF [facility] Comment on above: Calculations of bill mated GFR are performed using the 2020 CKD-EPI Study Refit equation without the race variable for the IDMS-Traceable creatinine methods. https://jasn.asnjournals.org/content///ASN.740441 2201 Glucose [Mass/Vol] 96 mg/dL 74 - 99 mg/dL [facility] Potassium [Moles/Vol] 4.3 mmol/L 3.5 - 5.3 mmol/L [facility] Sodium [Moles/Vol] 139 mmol/L 136 - 145 mmol/L [facility] Urea nitrogen [Mass/Vol] 16 mg/dL 6 - 23 mg/dL [facility] Anion gap [Moles/Vol] 13 mmol/L Normal 10-20 [facility] Comment on above: Performed By: #### 2 4321-2 ####JANETH Galo ([id number])[facility] ([facility])[address] [place] [address] Calcium [Mass/Vol] 9.0 mg/dL Normal 8.6-10.6 [facility] Comment on above: Performed By: #### 2 4321-2 ####JANETH RANGELER L ([id number])[facility] ([facility])[address] [place] [address] Chloride [Moles/Vol] 102 mmol/L Normal 98-107 [facility] Comment on above: Performed By: #### 2 4321-2 ####JANETH CONNORMOTZER L ([id number])[facility] ([facility])[address] [place] [address] CO2 [Moles/Vol] 28 mmol/L Normal 21-32 [facility] Comment on above: Performed By: #### 2 4321-2 ####JANETH RANGELER L ([id number])[facility] ([facility])[address] [place] [address] Creatinine [Mass/Vol] 0.81 mg/dL Normal 0.50-1.05 [facility] Comment on above: Performed By: #### 2 1-2 ####JANETH MCDONALDTZER L ([id number])[facility] ([facility])[address] [place] [address] Glomerular filtration rate/1.73 sq M.predicted 88 mL/min/1.73m*2 Normal >60 [facility] Comment on above: Result Comment: Calc ulations of estimated GFR are performed using the 2020 CKD-EPI Study Refit equation without the race variable for the IDMS-Traceable creatinine methods.https://jasn.asnjournals.org/content// N.5515213057 Performed By: #### 2 4321-2 ####JANETH RANGELER L ([id number])[facility] ([facility])[address] [place] [address] Glucose [Mass/Vol] 96 mg/dL Normal 74-99 [facility] Comment on above: Performed By: #### 2 4321-2 ####JANETH CONONRMOTZER L ([id number])[facility] ([facility])[address] [place] [address] Potassium [Moles/Vol] 4.3 mmol/L Normal 3.5-5.3 [facility] Comment on above: Performed By: #### 2 4321-2 ####JANETH Galo ([id number])[facility] ([facility])[address] [place] [address] Sodium [Moles/Vol] 139 mmol/L Normal 136-145 [facility] Comment on above: Performed By: #### 2 4321-2 ####JANETH Galo ([id number])[facility] ([facility])[address] [place] [address] Urea nitrogen [Mass/Vol] 16 mg/dL Normal - [facility] Comment on above: Performed By: #### 2 4321-2 ####JANETH Galo ([id number])[facility] ([facility])[address] [place] [address] CBC panel Auto (Bld)on 01-09 Erythrocyte distribution width (RBC) [Ratio] 15.8 % High 11.5 - 14.5 % [facility] Hematocrit (Bld) [Volume fraction] 36.5 % 36.0 - 46.0 % [facility] Hemoglobin (Bld) [Mass/Vol] 11.2 g/dL Low 12.0 - 16.0 g/dL [facility] Interpretation and review of laboratory results Abnormal [facility] MCH (RBC) [Entitic mass] 26.9 pg 26.0 - 34.0 pg [facility] MCHC (RBC) [Mass/Vol] 30.7 g/dL Low 32.0 - 36.0 g/dL [facility] MCV (RBC) [Entitic vol] 88 fL 80 - 100 fL [facility] Nucleated RBC/100 WBC (Bld) [Ratio] 0 % [facility] Platelets (Bld) [#/Vol] 507 10*3/uL [facility] RBC (Bld) [#/Vol] 4.17 10*6/uL [facility] WBC (Bld) [#/Vol] 21.2 10*3/uL [facility] Erythrocyte distribution width (RBC) [Ratio] 15.8 % High 11.5-14.5 [facility] Comment on above: Performed By: #### 5 8410-2 ####JANETH Galo ([id number])[facility] ([facility])[address] [place] [address] Hematocrit (Bld) [Volume fraction] 36.5 % Normal 36.0-46.0 [facility] Comment on above: Performed By: #### 5 8410-2 ####JANETH Galo ([id number])[facility] ([facility])[address] [place] [address] Hemoglobin (Bld) [Mass/Vol] 11.2 g/dL Low 12.0-16.0 [facility] Comment on above: Performed By: #### 5 8410-2 ####JANETH Galo ([id number])[facility] ([facility])[address] [place] [address] MCH (RBC) [Entitic mass] 26.9 pg Normal 26.0-34.0 [facility] Comment on above: Performed By: #### 5 8410-2 ####JANETH Galo ([id number])[facility] ([facility])[address] [place] [address] MCHC (RBC) [Mass/Vol] 30.7 g/dL Low 32.0-36.0 [facility] Comment on above: Performed By: #### 5 8410-2 ####JANETH Galo ([id number])[facility] ([facility])[address] [place] [address] MCV (RBC) [Entitic vol] 88 fL Normal 80-100 [facility] Comment on above: Performed By: #### 5 8410-2 ####JANETH Galo ([id number])[facility] ([facility])[address] [place] [address] Nucleated RBC/100 WBC (Bld) [Ratio] 0.0 /100 WBCs Normal 0.0-0.0 [facility] Comment on above: Performed By: #### 5 8410-2 ####JANETH GRAFF L ([id number])[facility] ([facility])[address] [place] [address] Platelets (Bld) [#/Vol] 507 x10*3/uL High 150-450 [facility] Comment on above: Performed By: #### 5 8410-2 ####JANETH GRAFF L ([id number])[facility] ([facility])[address] [place] [address] RBC (Bld) [#/Vol] 4.17 x10*6/uL Normal 4.00-5.20 [facility] Comment on above: Performed By: #### 5 8410-2 ####JANETH GRAFF L ([id number])[facility] ([facility])[address] [place] [address] WBC (Bld) [#/Vol] 21.2 x10*3/uL High 4.4-11.3 [facility] Comment on above: Performed By: #### 5 8410-2 ####JANETH GRAFF L ([id number])[facility] ([facility])[address] [place] [address] ECG 12-LEADon 01-10-2024 ECG 12-LEAD Ventricular Rate 79 Atrial Rate 79 P-R Interval 144 QRS Duration 88 Q-T Interval 404 QTC Calculation(Bazett) 463 P Conway 49 R Conway 20 T Conway 17 QRS Count 13 Q Onset 214 P Onset 142 P Offset 197 T Offset 416 QTC Fredericia 443 Diagnosis Normal sinus rhythm Normal ECG No previous ECGs available Confirmed by Giancarlo Bonilla ([id number]) on 01/20/2024 10:17:05 PM Normal [facility]3] No Panel Informationon 01-09 Interpretation and review of laboratory results Normal [facility] Vancomycinon 01-10-2024 Vancomycin [Mass/Vol] 7.8 ug/mL 5.0 - 20.0 ug/mL [facility] Vancomycin [Mass/Vol] 7.8 ug/mL Normal 5.0-20.0 [facility] Comment on above: Order Comment: Vanco mycin [...] Performed By: #### 2 0578-1 ####JANETH Galo ([id number])[facility] ([facility])[address] [place] [address] Vancomycin [Mass/Vol]on 12-19 Vancomycin levels can be [...] 30.0-40.0 ug/mL Trough (all ages): 10.0-20.0 ug/mL [facility] Bacteria identifiedon 2023 Bacteria identified Cx Nom (Unsp spec) [facility] Comment on above: Performed By: #### 6 463-4 ####JANETH Galo ([id number])[facility] ([facility])[address] [place] [address] Bacteria identified Cx Nom (Unsp spec) Abnormal [facility] Comment on above: Performed By: #### 6 463-4 ####JANETH Galo ([id number])[facility] ([facility])[address] [place] [address] Bacteria identified Cx Nom (Unsp spec) Abnormal [facility] Comment on above: Performed By: #### 6 463-4 ####JANETH Galo ([id number])[facility] ([facility])[address] [place] [address] Bacteria identified Cx Nom (Unsp spec) Abnormal [facility] Comment on above: Performed By: #### 6 463-4 ####JANETH Galo ([id number])[facility] ([facility])[address] [place] [address] Bacteria identified Cx Nom (Unsp spec) [facility] Comment on above: Performed By: #### 6 463-4 ####JANETH Galo ([id number])[facility] ([facility])[address] [place] [address] FL FLUORO IMAGES NO CHARGEon 01-09-2024 FL FLUORO IMAGES NO CHARGE These images are not reportable by radiology and will not be interpreted by Radiologists. [facility] Fungus identifiedon 01-09-20 Fungus identified Cx Nom (Unsp spec) [facility] Comment on above: Performed By: #### 5 80-1 ####JANETH Gaol ([id number])[facility] ([facility])[address] [place] [address] Fungus identified Cx Nom (Unsp spec) [facility] Comment on above: Performed By: #### 5 80-1 ####JANETH Galo ([id number])[facility] ([facility])[address] [place] [address] Fungus identified Cx Nom (Unsp spec) [facility] Comment on above: Performed By: #### 5 80-1 ####JANETH Galo ([id number])[facility] ([facility])[address] [place] [address] Fungus identified Cx Nom (Unsp spec) [facility] Comment on above: Performed By: #### 5 80-1 ####JANETH Galo ([id number])[facility] ([facility])[address] [place] [address] Fungus identified Cx Nom (Unsp spec) Normal [facility] Comment on above: Performed By: #### 5 80-1 ####JANETH Galo ([id number])[facility] ([facility])[address] [place] [address] Renal function 2000 panelon 01-09-2024 Albumin BCP dye [Mass/Vol] 3.8 g/dL 3.4 - 5.0 g/dL [facility] Anion gap [Moles/Vol] 13 mmol/L 10 - 2 0 mmol/L [facility] Calcium [Mass/Vol] 9 mg/dL 8.6 - 10. 6 mg/dL [facility] Chloride [Moles/Vol] 100 mmol/L 98 - 10 7 mmol/L [facility] CO2 [Moles/Vol] 30 mmol/L 21 - 32 mmol/L [facility] Creatinine [Mass/Vol] 0.84 mg/dL 0.50 - 1.05 mg/dL [facility] GFR/1.73 sq M.predicted among non-blacks MDRD (S/P/Bld) [Vol rate/Area] 84 mL/min/{1.73_m2} - PINF [facility] Comment on above: Calculations of bill mated GFR are performed using the 2020 CKD-EPI Study Refit equation without the race variable for the IDMS-Traceable creatinine methods. https://jasn.asnjournals.org/content//ASN.872779 0168 Glucose [Mass/Vol] 127 mg/dL High 74 - 99 mg/dL [facility] Interpretation and review of laboratory results Abnormal [facility] Phosphate [Mass/Vol] 4.1 mg/dL 2.5 - 4 .9 mg/dL [facility] Comment on above: The performance lucia acteristics of phosphorus testing in heparinized plasma have been validated by the individual laboratory site where testing is performed. Testing on heparinized plasma is not approved by the FDA; however, such approval is not necessary. Potassium [Moles/Vol] 5.1 mmol/L 3.5 - 5.3 mmol/L [facility] Sodium [Moles/Vol] 138 mmol/L 136 - 145 mmol/L [facility] Urea nitrogen [Mass/Vol] 12 mg/dL 6 - 23 mg/dL [facility] Albumin BCP dye [Mass/Vol] 3.8 g/dL Normal 3.4-5.0 [facility] Comment on above: Performed By: #### 2 4362-6 ####JANETH Galo ([id number])[facility] ([facility])[address] [place] [address] Anion gap [Moles/Vol] 13 mmol/L Normal 10-20 [facility] Comment on above: Performed By: #### 2 4362-6 ####JANETH Galo ([id number])[facility] ([facility])[address] [place] [address] Calcium [Mass/Vol] 9.0 mg/dL Normal 8.6-10.6 [facility] Comment on above: Performed By: #### 2 4362-6 ####JANETH Galo ([id number])[facility] ([facility])[address] [place] [address] Chloride [Moles/Vol] 100 mmol/L Normal 98-107 [facility] Comment on above: Performed By: #### 2 4362-6 ####JANETH Galo ([id number])[facility] ([facility])[address] [place] [address] CO2 [Moles/Vol] 30 mmol/L Normal 21-32 [facility] Comment on above: Performed By: #### 2 4362-6 ####JANETH Galo ([id number])[facility] ([facility])[address] [place] [address] Creatinine [Mass/Vol] 0.84 mg/dL Normal 0.50-1.05 [facility] Comment on above: Performed By: #### 2 4362-6 ####JANETH Galo ([id number])[facility] ([facility])[address] [place] [address] Glomerular filtration rate/1.73 sq M.predicted 84 mL/min/1.73m*2 Normal >60 [facility] Comment on above: Result Comment: Calc ulations of estimated GFR are performed using the 2020 CKD-EPI Study Refit equation without the race variable for the IDMS-Traceable creatinine methods.https://jasn.asnjournals.org/content// N.5350425903 Performed By: #### 2 4362-6 ####JANETH Galo ([id number])[facility] ([facility])[address] [place] [address] Glucose [Mass/Vol] 127 mg/dL High 74-99 [facility] Comment on above: Performed By: #### 2 4362-6 ####JANETH Galo ([id number])[facility] ([facility])[address] [place] [address] Phosphate [Mass/Vol] 4.1 mg/dL Normal 2.5-4.9 [facility] Comment on above: Result Comment: The performance characteristics of phosphorus testing in heparinized plasma have been validated by the individual laboratory site where testing is performed. Testing on heparinized plasma is not approved by the FDA; however, such approval is not necessary. Performed By: #### 2 4362-6 ####JANETH Galo ([id number])[facility] HOSPITAL)[address] [place] [address] Potassium [Moles/Vol] 5.1 mmol/L Normal 3.5-5.3 [facility] Comment on above: Performed By: #### 2 4362-6 ####JANETH Galo ([id number])[facility] ([facility])[address] [place] [address] Sodium [Moles/Vol] 138 mmol/L Normal 136-145 [facility] Comment on above: Performed By: #### 2 4362-6 ####JANETH Galo ([id number])[facility] ([facility])[address] [place] [address] Urea nitrogen [Mass/Vol] 12 mg/dL Normal 6-23 [facility] Comment on above: Performed By: #### 2 4362-6 ####JANETH Galo ([id number])[facility] ([facility])[id number] [place] [address] VERAB/VERIFY ABORHon 024 ABO group Nom (Bld) A Normal [facility] Comment on above: Order Comment: Thi s is for confirming/verifying history of ABORh on file for transfusion of blood products. If this is not for transfusion, please order an ABO/RH [[id number]]. If you have any questions or unsure what to order, please call the blood bank. Performed By: #### V ERAB ####JANETH Galo ([id number])[facility] B[facility]OD [facility]ANK ([facility])[id number] [place] [address] D Ag Ql (Bld) Positive Normal [facility] Comment on above: Order Comment: Thi s is for confirming/verifying history of ABORh on file for transfusion of blood products. If this is not for transfusion, please order an ABO/RH [[id number]]. If you have any questions or unsure what to order, please call the blood bank. Performed By: #### V ERAB ####JANETH Galo ([id number])[facility]OD [facility] ([facility])[address] [place] [address] VERIFY ABO/Rh Group Teston 1 03-10-2023 ABO group Nom (Bld) A [facility] D Ag Ql (Bld) Positive [facility] XR tomography Unspecified reynaldo dy regionon 01-09-2024 These images are not reportable by radiology and will not be interpreted by Radiologists. IMAGING [place] 12-31-2023 MALIN Telephone (FPWADS) ----- DEIDRA DE LA CRUZ ([id number]) 1970 F Date Time Provider Department 12/31/23 [...] 5 THYROID STIMULATING HORMONE [SQTSH] Order #: [id number] FUTURE Prescriptions as of 12/31/2023 - levothyroxine [...] Status:Closed by KATIE TRIPATHI on 12/31/23 Normal [facility] Basic metabolic 2000 panelon 12-30-2023 Anion gap [Moles/Vol] 11 mmol/L Normal 10-20 [facility] Comment on above: Performed By: #### 2 4321-2 ####JANETH MCDONALDTZER L ([id number])[facility] ([facility])[address] [place] [address] Calcium [Mass/Vol] 9.1 mg/dL Normal 8.6-10.6 [facility] Comment on above: Performed By: #### 2 4321-2 ####JANETH SCHMOTZER L ([id number])[facility] ([facility])[address] [place] [address] Chloride [Moles/Vol] 101 mmol/L Normal 98-107 [facility] Comment on above: Performed By: #### 2 4321-2 ####JANETH SCHMOTZER L ([id number])[facility] ([facility])[address] [place] [address] CO2 [Moles/Vol] 30 mmol/L Normal 21-32 [facility] Comment on above: Performed By: #### 2 4321-2 ####JANETH SCHMOTZER L ([id number])[facility] ([facility])[address] [place] [address] Creatinine [Mass/Vol] 0.71 mg/dL Normal 0.50-1.05 [facility] Comment on above: Performed By: #### 2 4321-2 ####JANETH SCHMOTZER L ([id number])[facility] ([facility])[address] [place] [address] GFR/1.73 sq M.predicted MDRD (S/P/Bld) [Vol rate/Area] mL/min/{1.73_m2} Normal >60 [facility] Comment on above: Result Comment: Calc ulations of estimated GFR are performed using the 2020 CKD-EPI Study Refit equation without the race variable for the IDMS-Traceable creatinine methods.https://jasn.asnjournals.org/content/early// N.7533295340 Performed By: #### 2 4321-2 ####JANETH Galo ([id number])[facility] ([facility])[address] [place] [address] Glucose [Mass/Vol] 82 mg/dL Normal 74-99 [facility] Comment on above: Performed By: #### 2 4321-2 ####JANETH GRAFF L ([id number])[facility] ([facility])[address] [place] [address] Potassium [Moles/Vol] 5.4 mmol/L High 3.5-5.3 [facility] Comment on above: Performed By: #### 2 4321-2 ####JANETH GRAFF L ([id number])[facility] ([facility])[address] [place] [address] Sodium [Moles/Vol] 137 mmol/L Normal 136-145 [facility] Comment on above: Performed By: #### 2 4321-2 ####JANETH CONNORMOTZLETI L ([id number])[facility] ([facility])[address] [place] [address] Urea nitrogen [Mass/Vol] 13 mg/dL Normal 6-23 [facility] Comment on above: Performed By: #### 2 4321-2 ####JANETH GRAFF L ([id number])[facility] ([facility])[address] [place] [address] Blood type and Indirect anti body screen panel (Bld)on 12-30-2023 ABO group Nom (Bld) A Normal [facility] Comment on above: Performed By: #### 3 4532-2 ####JANETH Galo ([id number])[facility]OD [facility] ([facility])[address] [facility] [address] Blood group antibody screen Ql Negative [facility] Comment on above: Performed By: #### 3 4532-2 ####JANETH Galo ([id number])[facility] ([facility])[address] [facility] [address] D Ag Ql (Bld) Positive [facility] Comment on above: Result Comment: 2nd ABO test required. Order and Collect VERAB Performed By: #### 3 4532-2 ####JANETH Galo ([id number])[facility]OD [facility] ([facility])[address] [facility] [address] CBC panel Auto (Bld)on 12-29 Erythrocyte distribution width (RBC) [Ratio] 15.8 % High 11.5-14.5 [facility] Comment on above: Performed By: #### 5 8410-2 ####JANETH Galo ([id number])[facility] ([facility])[address] [place] [address] Hematocrit (Bld) [Volume fraction] 44.6 % Normal 36.0-46.0 [facility] Comment on above: Performed By: #### 5 8410-2 ####JANETH Galo ([id number])[facility] ([facility])[address] [place] [address] Hemoglobin (Bld) [Mass/Vol] 13.3 g/dL Normal 12.0-16.0 [facility] Comment on above: Performed By: #### 5 8410-2 ####JANETH Galo ([id number])[facility] ([facility])[address] [place] [address] MCH (RBC) [Entitic mass] 26.5 pg Normal 26.0-34.0 [facility] Comment on above: Performed By: #### 5 8410-2 ####JANETH Galo ([id number])[facility] ([facility])[address] [place] [address] MCHC (RBC) [Mass/Vol] 29.8 g/dL Low 32.0-36.0 [facility] Comment on above: Performed By: #### 5 8410-2 ####JANETH Galo ([id number])[facility] ([facility])[address] [place] [address] MCV (RBC) [Entitic vol] 89 fL Normal 80-100 [facility] Comment on above: Performed By: #### 5 8410-2 ####JANETH Galo ([id number])[facility] ([facility])[address] [place] [address] Nucleated RBC/100 WBC (Bld) [Ratio] 0.0 /100 WBCs Normal 0.0-0.0 [facility] Comment on above: Performed By: #### 5 8410-2 ####JANETH Galo ([id number])[facility] ([facility])[address] [place] [address] Platelets (Bld) [#/Vol] 621 x10*3/uL High 150-450 [facility] Comment on above: Performed By: #### 5 8410-2 ####JANETH Galo ([id number])[facility] ([facility])[address] [place] [address] RBC (Bld) [#/Vol] 5.01 x10*6/uL Normal 4.00-5.20 [facility] Comment on above: Performed By: #### 5 8410-2 ####JANETH Galo ([id number])[facility] ([facility])[address] [place] [address] WBC (Bld) [#/Vol] 10.7 x10*3/uL Normal 4.4-11.3 [facility] Comment on above: Performed By: #### 5 8410-2 ####JANETH Galo ([id number])[facility] ([facility])[address] [place] [address] Staphylococcus aureus.methic illin resistant isolateon 12-30-2023 MRSA isol Org specific cx Ql (Nose) Abnormal [facility] Comment on above: Performed By: #### 5 2969-3 ####JANETH Galo ([id number])[facility] ([facility])[address] [place], [place] [address] TSH WITH REFLEX TO FREE T4 I F ABNORMALon 12-30-2023 TSH Qn 10.40 m[IU]/L High 0.44-3.98 [facility] Comment on above: Order Comment: TSH t esting is performed using different testing methodology at [facility] than at other [facility]. Direct result comparisons should only be made within the same method. Performed By: #### T HYDS ####JANETH Galo ([id number])[facility] ([facility])[address] [place], [place] [address] Thyroxine.freeon 12-30-2023 Free T4 [Mass/Vol] 0.76 ng/dL Low 0.78-1.48 [facility] Comment on above: Order Comment: Thyro xine Free testing is performed using different testing methodology at [facility] than at other [facility]. Direct result comparisons should only be made within the same method. Performed By: #### 3 024-7 ####JANETH Galo ([id number])[facility] ([facility])[address] [place] [address] ECHOon 12-17-2023 CONCLUSIONS: - Exam indication: murmur [...] * * * Final * * * [facility] Echocardiography Report: Transthoracic Echo [facility] Date of service: 12/17/2023 2:03:11 PM [...] septum. PERICARDIUM There is no pericardial effusion. [facility] Echocardiography Echocardiography Rep ort: Transthoracic Echo [facility] Date of service: 12/17/2023 2:03:11 PM Ordering physician: BIJAN ELMORE Indication: murmur Technologist: Beverly Manrique [facility] Interpreting physician: Kathryn Campos MD PATIENT: [...] * * Final * * * [facility] : [id number] 1.724SyngoDynamicsSISUID [facility]NEY Telephone (TAVARES) ----- DEIDRA DE LA CRUZ ([id number]) 1970 F Date Time Provider Department 12/15/23 BIJAN ELMORE During your visit today, we recorded the following information about you: Elsa Torres 12/15/2023 3:22 PM Signed Hina, with [facility], called on patient's behalf to request an order for a wheelchair. Said patient had purchased one on her on in the past, but it is no longer functioning. Please fax order and chart notes to: [employer] [phone] [facility] phone: [phone]/ Carlo Miranda LPN 12/15/2023 3:[address] order for wheelchair Cheryl Araujo APRN.MALI 12/15/2023 5:02 PM Signed Rx for wheelchair placed in outbox, please fax with most recent office visit note Cheryl Araujo APRN.Carlo Ott LPN 12/15/2023 5:15 PM Addendum Fax sent to [phone] Allergies As of Date: 12/15/2023 Noted Allergy Reaction PENICILLIN 06/05/2015 16 - Unknown Date Reviewed: 11/18/2023 Reviewed by: Carlo Miranda LPN - Fully Assessed Reason for Visit: Order for wheelchair [Other] Primary Visit Diagnosis: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 INDICATION: Signs/Symptoms:traumatic arthritis; Signs/Symptoms:h/o tibial palteau fracture COMPARISON: None. ACCESSION NUMBER(S): [id number]; [id number] ORDERING CLINICIAN: CRUZ GOODMAN TECHNIQUE: Axial CT [...] no (more content not included)... [facility] CT TIBIA FIBULA RIGHT WO IV CONTRASTon 12-15-2023 CT TIBIA FIBULA RIGHT WO IV CONTRAST Interpreted By: Adalberto Daley, STUDY: CT of the right knee and tibia and fibula intravenous contrast dated 12/15/2023. INDICATION: Signs/Symptoms:traumatic arthritis; Signs/Symptoms:h/o tibial palteau fracture COMPARISON: None. ACCESSION NUMBER(S): [id number]; [id number] ORDERING CLINICIAN: CRUZ GOODMAN TECHNIQUE: Axial CT of the right knee and tibia and fibula was performed without intravenous contrast. Sagittal and coronal two-dimensional reformats were obtained. FINDINGS: OSSEOUS STRUCTURES AND JOINTS: The bones are demineralized. No acute fracture or dislocation is evident. There is patella Cullen. There is marginal patellar osteophyte formation and [...] bridging. MACRO: no (more content not included)... [facility] 12-10-2023 [facility] Telephone (FPWADS) ----- DEIDRA DE LA CRUZ ([id number]) 1970 F Date Time Provider Department 12/10/23 BIJAN ELMORE During your visit today, we recorded the following information about you: Elsa Torres 12/10/2023 11:22 AM Signed Patient said her clonazepam rx was incorrectly sent to [facility] mail order pharmacy. They told her it won't get to her for another 10 days. Wants to know if it can be switched to [facility] in [facility]. She would like a call back at [phone] when sent. Bijan Elmore MD 12/10/2023 12:04 PM Signed The following approved medication requests have been transmitted electronically. Requested Prescriptions Signed Prescriptions Disp Refills clonazePAM (KLONOPIN) 0.5 mg tablet 90 tablet 0 Sig: Take 1 tablet by mouth three times a day for 30 days. Authorizing Provider: BIJAN ELMORE MD Hummel, Megan, APRN.AUT[employer] B[employer]KE [employer]CH[employer]IC 12/10/2023 1:04 PM Signed Medication sent to [facility] APRN.AUTO BRAKE MECHANIC Carlo Miranda LPN 12/10/2023 1:11 PM Signed [...] Status:Closed by FRANCISCO ELMORE on 12/10/23 Normal [facility] C reactive proteinon 024 CRP [Mass/Vol] 3.77 mg/dL High <1.00 [facility] Comment on above: Performed By: #### 1 988-5 ####JANETH Galo ([id number])[facility] ([facility])[address] [place] [address] [place] [address] ESR Westergren method (Bld) [Velocity]on 12-01-2023 ESR (Bld) [Velocity] 55 mm/h High 0-30 [facility] Comment on above: Performed By: #### 4 537-7 ####JANETH Galo ([id number])[facility] ([facility])[address] [place], [place] [address] CNPSridevi 11-21-2023 CNPN Telephone ([facility]) ----- DEIDRA DE LA CRUZ ([id number]) 1970 F Date Time Provider Department 11/21/23 BIJAN ELMORE [facility] During your visit today, we recorded the following information about you: Costa Johnson LPN 11/21/2023 2:05 PM Signed Received 11/21/2023 from [employer]. Placed in provider's inbox for review. Route to [place] for scanning. Allergies As of Date: 11/21/2023 Noted Allergy Reaction PENICILLIN 06/05/2015 16 - Unknown Date Reviewed: 11/18/2023 Reviewed by: Carlo Miranda LPN - Fully Assessed Reason for Visit: Received Outside Medical Records [3577] Cmt: [employer] Order for incontinence supplies [...] Encounter Status:Closed by COSTA JOHNSON on 11/21/23 [facility] CNOVon 11-18-2023 CNOV Office Visit (FPWADS ) ----- DEIDRA DE LA CRUZ ([id number]) 1970 F Date Time Provider Department 11/18/23 [...] telephonic presence (more content not included)... Normal [facility] ECG COMPLETEon 11-18-2023 ECG COMPLETE Ventricular Rate : 7 8 BPM Atrial Rate : 78 BPM P-R Interval : 146 ms QRS Duration : 82 ms Q-T Interval : 388 ms QTC Calculation(Bazett) : 442 ms Calculated P Conway : 37 degrees Calculated R Conway : 36 degrees Calculated T Conway : 21 degrees NORMAL SINUS RHYTHM NORMAL ECG NO PREVIOUS ECGS AVAILABLE Confirmed by FRANCISCO ALVARADO M.D. ([id number]) on 11/19/2023 4:28:43 PM NAME : DEIDRA DE LA CRUZ PID : [id number] : 1970 Gender : Female Race : ORD : [id number] Procedure Date : Nov 18 2023 10:19:49 Edit Date : Nov 19 2023 16:28:44 Diagnosis: NORMAL SINUS RHYTHM NORMAL ECG NO PREVIOUS ECGS AVAILABLE Confirmed by FRANCISCO ALVARADO M.D. ([id number]) on 11/19/2023 4:28:43 PM Test Reason : Location : [address] [place] [address] Overread By : FRANCISCO ALVARADO M.D. Edited By : FRANCISCO ALVARADO M.D. Referred By : SELF, Acquired by : CARLO MIRANDA Normal [facility] XR KNEE RIGHT 1-2 VIEWSon XR KNEE RIGHT 1-2 VIEWS Normal [facility] XR TIBIA FIBULA RIGHT 2 VIEW Son 08-25-2023 XR TIBIA FIBULA RIGHT 2 VIEWS [facility] CNPNon 08-19-2023 MALIN Telephone ([email or web address].[facility]SPENCER) ----- DEIDRA DE LA CRUZ ([id number]) 1970 F Date Time Provider Department 08/19/23 BIJAN ELMORE During your visit today, we recorded the following information about you: Carlo Miranda LPN 08/19/2023 3:20 PM Signed Received incontinence supply orders from [employer] Placed in provider's inbox for review. Route to [place] fax Carlo Miranda LPN 08/19/2023 5:49 PM Signed Fax sent Allergies As of Date: 08/19/2023 Noted Allergy Reaction PENICILLIN 06/05/2015 16 - Unknown Date Reviewed: 04/11/2023 Reviewed by: Costa Johnson LPN - Fully Assessed Reason for Visit: Orders [601] Cmt: [employer] Prescriptions as of 08/19/2023 [...] Status:Closed by CARLO MIRANDA on 08/19/[address] [facility] [address] HIP LEFT WO IV CONTRASTon 07-07-2023 CT HIP LEFT WO IV CONTRAST Interpreted By: Adalberto Daley, STUDY: CT of the left hip without intravenous contrast dated 07/07/2023. INDICATION: Signs/Symptoms:pain COMPARISON: None. ACCESSION NUMBER(S): [id number] ORDERING CLINICIAN: CRUZ GOODMAN TECHNIQUE: Axial CT [...] Adalberto Daley 07/08/2023 1:10 PM Dictation workstation: [id number] [facility] XR HIP LEFT WITH PELVIS WHEN PERFORMED 2 OR 3 VIEWSon 06-12-2023 XR HIP LEFT WITH PELVIS WHEN PERFORMED 2 OR 3 VIEWS Interpreted By: Xuan Cardenas, STUDY: Single view pelvis. Left hip, two views. INDICATION: Signs/Symptoms:hip pain. COMPARISON: None. ACCESSION NUMBER(S): [id number] ORDERING CLINICIAN: CRUZ GOODMAN FINDINGS: No acute [...] Xuan Cardenas 06/13/2023 7:09 PM Dictation workstation: [id number] [facility] XR KNEE RIGHT 1-2 VIEWSon XR KNEE RIGHT 1-2 VIEWS Interpreted By: Xuan Cardenas, STUDY: Right tibia, two views Right knee, two views. INDICATION: Signs/Symptoms:injury. COMPARISON: None. ACCESSION NUMBER(S): [id number]; [id number] ORDERING CLINICIAN: CRUZ GOODMAN FINDINGS: Intramedullary nail [...] Xuan Cardenas 06/13/2023 7:12 PM Dictation workstation: [id number] [facility] XR TIBIA FIBULA RIGHT 2 VIEW Son 06-12-2023 XR TIBIA FIBULA RIGHT 2 VIEWS Interpreted By: Xuan Cardenas, STUDY: Right tibia, two views Right knee, two views. INDICATION: Signs/Symptoms:injury. COMPARISON: None. ACCESSION NUMBER(S): [id number]; [id number] ORDERING CLINICIAN: CRUZ GOODMAN FINDINGS: Intramedullary nail [...] Xuan Cardenas 06/13/2023 7:12 PM Dictation workstation: [id number] [facility] Anaerobic cultureOrdered By: Yulia Munoz on 11-28-2022 Bacteria identified Anaer cx Nom (Unsp spec) No anaerobic bacteria isolated. [facility] Bacteria identified Cx Nom ( Wound)Ordered By: Yulia Munoz on 11-28-2022 Wound Culture Meth. resistant Stap h. aureus [facility] Wound Culture Enterobacter cloacae complex [facility] Gram stain for investigation of transfusion reactionOrdered By: Yulia Munoz on 11-28-2022 Microscopic observation Gram stain Nom (Unsp spec) [facility] 36on 05-23-2022 36 Name of caller: Carey De La Cruz Relation to patient: patient Contact phone number: [phone] Appointment scheduled with: Avelina Tello Appointment date & time: 06/18 at 9am Reason for visit (are you having any symptoms) : Left knee hip replacement Transportation issues/ concerns: no Special accommodations? ( wheel chair, etc) : no Current medications: no Any refills need: no Any chronic conditions the provider should be aware of: knee replacement [facility] 04-25-2022 36 Seen pt had called i nto the answering service after hours, about the abx not being called in yet. Looks like the Answering service spoke with Dr. Lee since Dr. Almonte is not in the office. Called the pt and notified her that the abx (2) were called into [facility]- pt gave verbal understanding. [facility] 3604-24-2022 36 Noted. Attempted to call pt, no answer. LVM for pt to return call regarding medication. [facility] 36 I signed off on the meds [facility] 04-23-2022 36 Yes, I'm not doing t he hip for sure. I tried calling her yesterday, will need to call her again today to touch base. Most likely will need amputation with Jeanie prior to any hip surgery we do. Thanks! [facility] 04-22-[address] Almonte she w ould like pt started back on previous antibiotic regimen for 14 days. Attempted to call pt, no answer. LVM for pt to return call. [place] [id number] 36 PAT orders not yet placed, assuming surgery is on hold? [facility] Synovial fluid, cell counton 04-18-2022 Color (Syn fld) TNP [facility] Comment on above: TEST(S) NOT PERFORMED: COLOR APPEARANCE TOTAL NUCLEATED CELL CT NEUTROPHILS, % LYMPHOCYTES, % MONOCYTE/MACROPHAGE, % EOSINOPHILS, % BASOPHILS, % SYNOVIOCYTES, % COMMENT TEST NOT PERFORMED Specimen received clotted. Specimen source Nom (Unsp spec) NOT GIVEN [place] [id number] 36 Name of caller reque sting page:[facility] Phone Number of caller: [phone] Facility requesting page: Microbiology Reason for Page: Knee fluid Provider paged: Practice Name of paged provider: Orthopedics Page Placed to #: N/A Time Page was sent or provider contacted: 6:49 Pm Page Content: [facility] with Micro[facility] at [facility] is requesting a call back [phone] in regards to knee fluid that she received that was collected wrong. please advise Normal [facility] 36 Name of caller: Amira garibay Contact phone number: [phone] Relationship to Patient: Hematology Lab Provider: Dr [...] hours to return their call: No Normal [facility] 36 PAT: TBD SX: 05/16 @ 9AM DX: M16.12 CPT: 33896 CASE: [id number] Procedure: Left Total Hip Arthroplasty - 0[address]72 with anterior approach Time: 1.5 hours Diagnosis: 1. Primary osteoarthritis of right hip 2. Primary osteoarthritis of left hip Blood: Not anticipated to be given Important Labs to Obtain: Routine PAT protocol Anesthesia: Spinal and quadratus lumborum block DVT Prophylaxis: ASA Return to Office: No Repeat Xrays: No Anticipated Discharge To: Home, 23-HR Stay Implants: DePuy [place] Cup, Actis Stem Equipment: Hip Ocean Biologist lateral positioners, regular table, fluoro Other: TXA, Gisselle Brown Normal [facility] ADDENDUMNOTEon 04-17-2022 ADDENDUMNOTE Addended by: CASS GUZMAN on: 04/19/2022 03:28 PM Modules accepted: Level of Service Normal [facility] Office Visiton 04-17-2022 Follow-up visit [id number] Gemini De La Cruz 1970 F Date Provider Department Center 04/17/2022 [id number], RYAN [facility] ORT GEETA None Family History Problem Relation Age of Onset Kidney disease Mother Family Status - Relation Status Age at Mother Level of Service:61551 [place] OFFICE/OUTPATIENT ESTABLISHED MOD MDM 30-39 MIN Reason for Visit and Comments: Follow-up [059223] - FU: Left hip pain Normal [facility] Progress Noteon 04-17-2022 Progress Note [facility] [address] [place] [address] Dept: [phone] Dept 04/17/2022 Chief Complaint Patient presents with [...] a chronic extensor (more content not included)... [facility] Office Visiton 04-03-2022 Follow-up visit [id number] Gemini De La Cruz 1970 F Date Provider Department Center 04/03/2022 [id number] [facility] ID None Family History Problem Relation Age of Onset Kidney disease Mother Family Status - Relation Status Age at Mother Level of Service:04310 [place] OFFICE/OUTPATIENT ESTABLISHED HIGH [facility] 40-54 MIN Reason for Visit and Comments: Follow-up [416279] - Right lower leg wound infection. Patient needs clearance for surgery with Dr. Guzman. [facility] 03-29-2022 36 Pt called back into the office stated she can come in on 04/03/2022 @ 10 am and is aware that she needs to be on time to this appt. [facility] [address] Emiliana urbina and [...] let Dr. Almonte know she is scheduled. [facility] 03-21-2022 36 Deidra called back a nd stated she is having trouble finding an ID doctor close where she lives. Are you able to see her and if so when? [facility] 03-20-2022 36 Attempted to call pt to confirm, no answer. LVM for pt to return call. [facility] 36 When can she come I thought she was looking for an ID doc closer to her? We have tried to schedule her multiple times without success. Thanks. [facility] 03-18-2022 36 Pt called in at this time. Pt states she needs an appointment with Dr Almonte for ortho surgical clearance with Dr Guzman. Pt also states she finished antibiotics 4 days ago and is asking if she needs more. Advised I would send to provider for review. Dr Almonte - please advise Normal [facility] No Panel Informationon 03-15 Pacheco Boothe, DO [...] Response to treatment: procedure was tolerated well [facility] Pacheco Boothe, DO 03/15/2022 12:21 [...] Response to treatment: procedure was tolerated well [facility] PATINSon 03-15-2022 PATINS Follow up in the [facility] in 2 weeks Cleansing: [...] Kerlix and tape Use Single layer Tubi Municipal Engineer on both legs at all times unless showering or lying down Normal [facility] Progress Noteon 03-15-2022 Progress Note Subjective Patient [...] classified (Active) Wound Image 03/15/22928 Site Assessment Sloughing;[place] 03/15/22928 Kelly-Wound Assessment Dry 03/15/22928 Wound Length [...] Non-pressure chronic ul (more content not included)... [facility] 36on 03-05-2022 36 Pt came into the [...] if we had other locations closer to [place], informed her we do not, this is [...] and her surgeon. Pt gave verbal understanding. [place] 7585203-01-2022 36 She is scheduled to see you on 03/05 @ 12:30pm. [address] 02-28-2022 36 Can she see me Annaeblle ay 03/05 at 12:30 pm? [address] 02-26-[address] Boothe [...] person or virtually to speak with you? [address] 02-25-2022 36 I left a generic mes gene on patients voicemail to call the office. [place] [address] I have not received any request to clear her. Lets have her see her hip doctor and based on their recommendations I can make further recommendations. Has she seen wound care yet? [address] 02-21-2022 36 Pt called the office [...] already? Scheduled pt 03/14/2022 @ 11 am. [facility] 02-20-2022 36 Pt called in to [facility] appointment for 02/21/2022, states she does not have transportation and is in a wheelchair. Advised that I could cancel appointment but will have to ask provider what other time she has available for rescheduling. Pt verbalized understanding. Dr Almonte - please advise on when to reschedule appointment [facility] 02-18-2022 36 Name of caller: Carey azar Contact phone number: [phone] Relationship to Patient: patient Provider: Bruno Practice: [...] hours to return their call: Yes Deidra [facility] ADDENDUMNOTEon 01-31-2022 ADDENDUMNOTE Encounter addended b y: Niki Cuevas RN on: 02/04/2022 2:11 PM Actions taken: LDA properties accepted [facility] PATINSon 01-31-2022 PATINS Follow up in the [facility] in one week Take [...] Kerlix and tape Use Single layer Tubi Municipal Engineer on both legs at all times unless showering or lying down Normal [facility] Progress Noteon 01-31-2022 Progress Note New Patient [...] BAILEE. Pulmonary: Effort: Pulmonary effort is normal. [place] (more content not included)... [place] [address] 01-29-2022 36 Received a call from Maryann with wound care confirming the pts phone # and stated they will call to schedule the pt. [place] [address] Emiliana urbina, stated OK [...] full. Will try again to reach pt. [place] [address] Amelia are we good wit h this now? She needs both antibiotics refilled x 7 days and wound care consult. Thanks. [place] [address]on 01-23-2022 Pt calling in at thi s time asking if provider is going to extend her antibiotic until her next appointment since it is a month away. Advised I would send a message to provider to review. She verbalized understanding. Pt scheduled for follow up on 02/21/22. Dr Almonte please advise, secure chat also sent. [facility] 36on 01-21-2022 [address] ated she only has 1 day of her antibiotics left and would like to know if you would refill them since it will be a month before she sees you. [place] [address] Just wound care cons ult. Please refill both. Also spoke with Dr. Ware regarding Ms. De La Cruz. Thanks. [address] 01-18-2022 36 Spoke with pt, she s tated she started the abx two days late (issue with pharm) and believes she is on day 5, stated for both abx she takes them both -1 in the am and 1 in the pm. Stated she is doing good, the wound is not getting worse, stated there is still some ooze but stated [place] seems to be getting smaller. She is [...] try to make it to this appt. [address] 01-17-2022 36 Call made to pt, no answer and pts VMB is full. Will try again to reach the pt at a later time today. [address] 01-01-2022 36 Pt checking on statu s of the results discussion. [place] [address] Did ID ever schedule her? [place] [address] Name of caller: Carey nissa Contact phone number: [phone] Relationship to Patient: patient Provider: Dr. Ware Practice: Orthopedics Chief Complaint/Reason for Call: Patient called and requested a call back to review lab results that Dr. Ware ordered. Please advise. Best time of day caller can be reached: any Patient advised that office/PCP has 24-48 business hours to return their call: No [facility] Progress Noteon 12-17-2021 Ticket Counter Authentication Interface Message Text Chief Complaint Patient [...] hinds sebastian testing Will proceed with just [facility] for 30 now Normal [facility] MRI Low Ext Joint w/ + w/o C yahaira Renae 12-13-2021 MRI Low Ext Joint w/ + w/o Contrast Right Patient Name: DEIDRA DE LA CRUZ Magnetic Resonance Imaging ACCESSION EXAM DATE/TIME PROCEDURE ORDERING PROVIDER [id number] 12/13/2021 16:39 EDT MRI Low Ext Joint w/ + [id number] -CASSY LANGLEY w/o Contrast Rig CPT code 55719 Reason For Exam (MRI Low Ext Joint w/ + w/o Contrast [facility]) pre op planning Report Examination: MRI right [...] Transcribed Date and Time: 12/14/2021 6:21 Normal [facility] Progress Noteon 11-16-2021 Ticket Counter Authentication Interface Message Text Chief Complaint Patient [...] and alternatives of operative correction with the parent(s)/guardian(s)/[facility] parent(s). The risks may include but [...] to: 1. Improvement of visual function The parent(s)/guardian(s)/[facility] parent(s) voiced understanding, were allowed to ask questions and had these questions answered. They were presented with alternatives including no surgery and gave permission to proceed. Schedule BMRc, BIOc F/U for pre op measurements then EOM sx Normal [facility] VL BAILEE Upr/L Extremity Art 1 -2 Levelson 10-26-2021 VL BAILEE Upr/L Extremity Art 1-2 Levels Patient Name: [id number] Ul[facility]ound ACCESSION EXAM DATE/TIME PROCEDURE ORDERING PROVIDER [id number] 10/26/2021 14:57 EDT VL Upr/L Extremity Art [id number] -DAMIAN MOYA 1-2 Levels CPT code 59600 Reason For Exam (VL Upr/L Extremity Art 1-2 Levels) Other complications of procedures, not elsewhere classified, initial encounter Report [facility] Ankle Brachial Index Report Patient Jono, : 1970 Study 10/26/2021 Name: Deidra Darnell (51yrs) Date: Patient [id number] Age: 51 Account: [id number] ID: Gender: F Loc: BP: Ordering Physician: Damian Moya Gaming Pit Boss: Kateryna Franz RVT Interpreting Physician: Cruz Burrows MD Location: [facility] Indications: Nonhealing surgical wound right calf. Conclusions [...] supine position. Images were obtained using a eToro vascular ultrasound machine. Arterial pressure indices: + [...] CRUZ BURROWS Cardiovascular ACCESSION EXAM DATE/TIME PROCEDURE [id number] 10/26/2021 14:57 EDT VL Upr/L Extremity Art 1-2 Levels CPT code 09765 Reason For Exam (VL Upr/L Extremity Art 1-2 Levels) Other complications of procedures, not elsewhere classified, initial encounter Report [facility] Ankle Brachial Index Report Patient Jono : 1970 Study 10/26/2021 Name: Deidra Darnell (51yrs) Date: Patient [id number] Age: 51 Account: [id number] ID: Gender: F Loc: BP: Ordering Physician: Damian Moya Cardiovascular Report Gaming Pit Boss: LUCILA PerezT Interpreting Physician: Cruz Burrows MD Location: [facility] Indications: Nonhealing surgical wound right calf. Conclusions [...] supine position. Images were obtained using a eToro vascular ultrasound machine. Arterial pre (more content not included)... Normal [facility] Special treatments and proce [facility] 10-10-2021 Patient Name: DEIDRA GOLDSTEIN Special Procedures ACCESSION EXAM DATE/TIME PROCEDURE ORDERING PROVIDER [id number] 10/10/2021 13:53 EDT XA Special Angiography MD [...] Procedures ACCESSION EXAM DATE/TIME PROCEDURE ORDERING PROVIDER [id number] 10/10/2021 13:53 EDT XA Special Angiography MD [...] Procedures ACCESSION EXAM DATE/TIME PROCEDURE ORDERING PROVIDER [id number] 10/10/2021 13:53 EDT XA Special Angiography MD [...] Transcribed Date and Time: 10/10/2021 3:15 Normal [facility] Absolute lymphocyte counton 09-05-2021 Lymphocytes Auto (Unsp spec) [#/Vol] 5.49 10*3/uL 0.83-4.51 [facility] Work Phone: Basophil percentageon 2021 Basophil percentage 25-50 SEEN /hpf 0-5 [facility] Work Phone: Basophils/100 WBC (Bld) 0.4 % 0-1 [facility] Work Phone: Chloride [Moles/Vol] 104 mmol/L 98-107 [facility] Work Phone: Eosinophils/100 WBC (Bld) 0.3 % 0-5 [facility] Work Phone: Glucose [Mass/Vol] 96 mg/dL 74-106 [facility] Work Phone: Neutrophils (Bld) [#/Vol] 12.4 10*3/uL 2.0-7.7 [facility] Work Phone: Neutrophils/100 WBC (Bld) 61.4 % 47-70 [facility] Work Phone: Potassium [Moles/Vol] 3.5 mmol/L 3.5-5.1 [facility] Work Phone: Sodium [Moles/Vol] 138 mmol/L 136-145 [facility] Work Phone: WBC (Bld) [#/Vol] 20.2 10*3/uL 4.4-11.0 [facility] Work Phone: Bilirubin Test strip Ql (U)o n 09-05-2021 Bilirubin Ql (U) Negative Negative [facility] Work Phone: Blood erythrocytes count (nu mber/volume)on 09-05-2021 RBC (Bld) [#/Vol] 4.60 10*6/uL 4.2-5.4 [facility] Work Phone: Blood hemoglobin measurement (mass/volume)on 09-05-2021 Hemoglobin (Bld) [Mass/Vol] 11.5 g/dL 12.0-15.0 [facility] Work Phone: Blood lymphocytes/100 leukoc yteson 09-05-2021 Lymphocytes/100 WBC (Bld) 27.2 % 19-41 [facility] Work Phone: Blood manual differential co mment interpretation (narrative result)on 09-05-2021 Manual differential comment David (Bld) [Interp] SCANNED [facility] Work Phone: Blood monocytes/100 leukocyt eson 09-05-2021 Monocytes/100 WBC (Bld) 9.9 % 0-10 [facility] Work Phone: Blood platelet mean volumeon 09-05-2021 Platelet mean volume (Bld) [Entitic vol] 10.8 fL 6.2-12.0 [facility] Work Phone: Determination of erythrocyte mean corpuscular volume (MCV)on 09-05-2021 MCV (RBC) [Entitic vol] 80.7 fL 81-99 [facility] Work Phone: [phone] Hematocrit Auto (Bld) [Volum e fraction]on 09-05-2021 Hematocrit (Bld) [Volume fraction] 37.1 % 37-47 [facility] Work Phone: [phone] Ketones Test strip Ql (U)on 09-05-2021 Ketones Ql (U) Negative Negative [facility] Work Phone: [phone] Laboratory - Chemistry and C hemistry - challengeon 09-05-2021 CO2 [Moles/Vol] 29.0 mmol/L 21.0-32.0 [facility] Work Phone: [phone] Urea nitrogen/Creatinine [Mass ratio] 18.7 mg/mg 12-06 [facility] Work Phone: [phone] Laboratory - Hematology and Cell countson 09-05-2021 Erythrocyte distribution width (RBC) [Entitic vol] 53.0 fL 35.1-43.9 [facility] Work Phone: [phone] Erythrocyte distribution width (RBC) [Ratio] 18.4 % 11.6-14.6 [facility] Work Phone: [phone] Immature granulocytes/100 WBC (Bld) 0.800 % 0.0-0.9 [facility] Work Phone: [phone] Comment on above: IG% - Immature Granu locytes (promyelocytes, myelocytes and metamyelocytes) > 1% indicates that a LEFT SHIFT is Present. MCH (RBC) [Entitic mass] 25.0 pg 27.0-32.0 [facility] Work Phone: [phone] Nucleated RBC/100 WBC (Bld) [Ratio] 0 % 0-5 [facility] Work Phone: [phone] MCHC Auto (RBC) [Mass/Vol]on 09-05-2021 MCHC (RBC) [Mass/Vol] 31.0 g/dL 32-36 [facility] Work Phone: [phone] Mucus LM Ql (Urine sed)on Mucus Ql (Urine sed) 0 SEEN /hpf [facility] Work Phone: [phone] Nitrite Test strip Ql (U)on 09-05-2021 Nitrite Ql (U) Negative Negative [facility] Work Phone: No Panel Informationon 09-05 Estimated Creatinine Clearance Calc 99.54 ml/min [facility] Work Phone: Estimated GFR (MDRD) Amer 126 mL/min >60 [facility] Work Phone: [phone] Comment on above: GFR Calc Estimated GFR (MDRD) Non-Af Amer 104 mL/min >60 [facility] Work Phone: Comment on above: Non- GFR Calc Platelets bldon 09-05-2021 Platelets (Bld) [#/Vol] 582 10*3/uL 150-450 [facility] Work Phone: [phone] Protein Test strip Ql (U)on 09-05-2021 Protein Ql (U) Negative Negative [facility] Work Phone: [phone] Review by pathologiston 08-18 Pathologist review David (Unsp spec) [Interp] May foll [facility] Work Phone: [phone] Serum or plasma C reactive p rotein measurement (mass/volume)on 09-05-2021 CRP [Mass/Vol] 221.00 mg/L 0.0-3.0 [facility] Work Phone: Comment on above: C-Reactive Protein ( CRP) provides useful information for thediagnosis, therapy and monitoring of inflammatory processesand associated diseases. For the evaluation of Relative Riskfor Cardiovascular Disease, a High Sensitivity CRP (HSCRP)should be ordered. Serum or plasma calcium samuel urement (mass/volume)on 09-05-2021 Calcium [Mass/Vol] 8.8 mg/dL 8.5-10.1 [facility] Work Phone: [phone] Serum or plasma creatinine m easurement (mass/volume)on 09-05-2021 Creatinine [Mass/Vol] 0.64 mg/dL 0.55-1.02 [facility] Work Phone: Comment on above: The validity of the calculated GFR & GFRAA in patients over 70 years has not been determined. Clinical correlation is essential. Serum or plasma urea nitroge n measurement (mass/volume)on 09-05-2021 Urea nitrogen [Mass/Vol] 12 mg/dL 7-18 [facility] Work Phone: Squamous epithelial cells de tection in urine sediment by light microscopyon 09-05-2021 Epithelial cells.squamous LM Ql (Urine sed) 0-5 SEEN /hpf 5-10 [facility] Work Phone: Thin prep Papanicolaou smear with manual screeningon 09-05-2021 Thin prep Papanicolaou smear with manual screening 5 5-15 [facility] Work Phone: Urine blood detectionon 08-18 RBC Ql (U) 10 /ul Negative [facility] Work Phone: [phone] RBC Ql (U) 0-5 SEEN /hpf 0-5 [facility] Work Phone: Urine clarityon 09-05-2021 Clarity (U) Sl. Cloudy Clear [facility] Work Phone: Urine color determinationon 09-05-2021 Color (U) Yellow Yellow [facility] Work Phone: Urine glucose detectionon Glucose Ql (U) Normal mg/dl Normal [facility] Work Phone: Urine leukocyte esterase det ection by dipstickon 09-05-2021 Leukocyte esterase Test strip Ql (U) 500 /ul Negative [facility] Work Phone: Urine pHon 09-05-2021 pH (U) 6.0 [pH] 5.0 - 8.0 [facility] Work Phone: Urine sediment bacteria coun t by microscopy (number/high power field)on 09-05-2021 Bacteria LM.HPF (Urine sed) [#/Area] 1 /[HPF] None Seen [facility] Work Phone: Urine sediment yeast count b y microscopy (number/high powered field)on 09-05-2021 Yeast LM.HPF (Urine sed) [#/Area] 1 /[HPF] None Seen [facility] Work Phone: Urine specific gravity measu rementon 09-05-2021 Specific gravity (U) [Rel density] 1.015 1.002-1.030 [facility] Work Phone: Urobilinogen Auto test strip Ql (U)on 09-05-2021 Urobilinogen Ql (U) Normal mg/dl Normal [facility] Work Phone: CT Up Ext w/o Contrast Lefto n 05-28-2021 CT Up Ext w/o Contrast Left Normal [facility] CR Wrist Complete 3 Views [place] f[place] 05-15-2021 CR Wrist Complete 3 Views Left Patient Name: DEIDRA DE LA CRUZ Diagnostic Radiology ACCESSION EXAM DATE/TIME PROCEDURE ORDERING PROVIDER [id number] 05/15/2021 11:27 EDT CR Wrist Complete 3 JOSEMD Ford DYLAN R Views Left CPT code 13349 Reason For Exam (CR Wrist Complete 3 [...] Transcribed Date and Time: 05/17/2021 9:26 Normal [facility] COVID-19on 04-30-2021 SARS-CoV-2 (COVID-19) RNA CAPRICE+probe Ql (Unsp spec) Not detected Not Detected [facility] Comment on above: Not Detected. Expected result: Not Detected _ Method: Real-time, RT-PCR Negative results do not preclude SARS-CoV-2 infection and should not be used as the sole basis for treatment or other patient management decisions. This assay was developed by [employer] and distributed under an Emergency Use Authorization (EUA) granted by the FDA for the qualitative detection of SARS-CoV-2 nucleic acid. Provider and patient fact sheets can be found at https://www.fda.gov/media/512207/download and https://www.fda.gov/media/600455/download. Test Performed by [id number] [place] [address] [id number] 04-30-2021 SARS-CoV-2 (COVID-19) RNA CAPRICE+probe Ql (Unsp spec) Normal [facility] Comment on above: Performed By: #### C OVID ####[place] [address] [place], [place] C. difficile toxin Molecular on 04-26-2021 C. difficile toxin Molecular NEGATIVE Methodology - Real Time PCR ([employer]) Clinical judgement must be used when interpreting results. Positive results may reflect colonization. Indeterminate results suggest a new specimen be submitted. [address] [facility] Clostridium difficile PCRon 04-26-2021 Clostridium difficile PCR Normal [facility] Comment on above: Performed By: #### C DPCR ####, [id number] performing lab is in the report. GASTROINTESTINAL PCR PANELon 04-26-2021 GASTROINTESTINAL PCR PANEL Normal [facility] Comment on above: Performed By: #### B FGI ####[facility] [place], [place] Gastrointestinal Panel by ALVAREZ Aon 04-26-2021 Gastrointestinal PCR Panel NEGATIVE: No targets were detected by the [employer] Gastrointestinal PCR Panel. _ The [employer] Gastrointestinal PCR Panel can detect the following targets: Campylobacter, Plesiomonas shigelloides, Salmonella, Vibrio species, Vibrio cholerae, Yersinia enterocolitica, Shiga toxin-producing E coli (STEC) including E coli O157, Enterotoxigenic E coli (ETEC), Shigella/Enteroinvasive E coli (EIEC), Cryptosporidium, Cyclospora cayetanensis, Entamoeba histolytica, Giardia lamblia, Adenovirus F 40/41, Astrovirus, Norovirus GI/GII, Rotavirus A, Sapovirus [facility] Test Performed by [facility], [facility] [place] [address] [facility] CULT/STAIN - AEROBIC AND FELY EROBICon 04-24-2021 CULT/STAIN - AEROBIC AND ANAEROBIC Normal [facility] Comment on above: Performed By: #### Rodney HELLER ####[place] [address] [place], [place] Culture, Anaerobic and Aerob icon 04-24-2021 Aerobic Culture Mixed skin evan pre sent. No Staphylococcus aureus isolated. No Pseudomonas aeruginosa isolated. No beta-hemolytic streptococcus isolated. [facility] Anaerobic Culture No growth of anaerob es at 5 days. [facility] Gram Stain Result No polymorphonuclear cells/lpf. No organisms seen. [facility] Test Performed by [facility], [address] [place] [place] [address] [facility] Basic Metabolic Panelon Anion gap [Moles/Vol] 5 mmol/L Normal 3-13 [facility] Comment on above: Performed By: #### B MP3M ####[place] [address] [place], [place] Calcium [Mass/Vol] 9.5 mg/dL Normal 8.4-10.4 [facility] Comment on above: Performed By: #### B MP3M ####[place] [address] [place], [place] CO2 [Moles/Vol] 27 mmol/L Normal 22-30 [facility] Comment on above: Performed By: #### B MP3M ####[place] [address] [place], [place] Glucose [Mass/Vol] 120 mg/dL High 70-100 [facility] Comment on above: Performed By: #### B MP3M ####[place] [address] [place], [place] Urea nitrogen [Mass/Vol] 13 mg/dL Normal 9-20 [facility] Comment on above: Performed By: #### B MP3M ####[place] [address] [place], [place] Creatinine [Mass/Vol] 0.52 mg/dL Normal 0.52-1.25 [facility] Comment on above: Performed By: #### B MP3M ####[place] [address] [place], [place] eGFR OTHER > 90.0 Normal >60 [facility] Comment on above: Result Comment: KDIG O guidelines provide the following GFR categories:Stage GFR(ml/min/1.73 m2) TermsG1 >=90 Normal or highG2 60-89 Mildly decreased*G3a 45-59 Mildly to moderately [id number] 30-44 Moderately to severely decreasedG4 15-29 Severely [...] creatinine secretion. Performed By: #### B MP3M ####[address] GFR/1.73 sq M.predicted among blacks MDRD (S/P/Bld) [Vol rate/Area] mL/min/{1.73_m2} Normal >60 [facility] Comment on above: Performed By: #### B MP3M ####[place] [address] [place], [place] Potassium [Moles/Vol] 3.6 mmol/L Normal 3.5-5.1 [facility] Comment on above: Performed By: #### B MP3M ####[place] [address] [place], [place] Chloride [Moles/Vol] 105 mmol/L Normal 98-107 [facility] Comment on above: Performed By: #### B MP3M ####[place] [address] [place], [place] Sodium [Moles/Vol] 137 mmol/L Normal 135-145 [facility] Comment on above: Performed By: #### B MP3M ####[address] Basic Metabolic Panel w/ Ref ruslan to MGon 04-19-2021 Anion gap [Moles/Vol] 5 mmol/L 3 - 13 mmol/L [facility] Calcium [Mass/Vol] 9.5 mg/dL 8.4 - 10. 4 mg/dL [facility] Chloride [Moles/Vol] 105 mmol/L 98 - 10 7 mmol/L [facility] CO2 [Moles/Vol] 27 mmol/L 22 - 30 mmol/L [facility] Creatinine [Mass/Vol] 0.52 mg/dL 0.52 - 1.25 mg/dL [facility] EGFR IF NonAfrican Burundian >90.0 >60 mL/min [facility] Comment on above: [...] - 20 mg/dL [facility] Test Performed by [facility], [address] [place] [id number] [place] [address] LAB [facility] CBC with Auto DifferentialOr dered [...] 3.93 10*6/uL 3.80 - 5.2 0 10*6/uL [facility] WBC (Bld) [#/Vol] 10.7 10*3/uL 3.6 - 10.7 10*3/uL [facility] CBC with Auto Differentialon 04-19-2021 Test Performed by [facility], [address] [place] [address] [facility] LAB Hemogram w/ Autodiffon 04-19 Abs Baso Cnt 0.2 10*3/uL Normal 0.0-0.2 [facility] Comment on above: Performed By: #### H EMDF ####[address] [place] [address] Abs Neutrophile Cnt 4.6 10*3/uL Normal 1.8-7.0 [facility] Comment on above: Performed By: #### H EMDF ####[address] [place] [address] Basophils/100 WBC (Bld) 1.6 % Normal 0.0-2.0 [facility] Comment on above: Performed By: #### H EMDF ####[address] [address] Eosinophils (Bld) [#/Vol] 0.3 10*3/uL Normal 0.0-0.5 [facility] Comment on above: Performed By: #### H EMDF ####[address] [place] [address] Eosinophils/100 WBC (Bld) 3.3 % Normal 1.0-6.0 [facility] Comment on above: Performed By: #### H EMDF ####[address] [place] [address] Erythrocyte distribution width (RBC) [Ratio] 16.9 % High 11.5-14.5 [facility] Comment on above: Performed By: #### H EMDF ####[address] [address] Granulocytes/100 WBC (Bld) 43.4 % Normal 40.0-80.0 [facility] Comment on above: Performed By: #### H EMDF ####[address] Hematocrit (Bld) [Volume fraction] 31.9 % Low 35.0-47.0 [facility] Comment on above: Performed By: #### H EMDF ####[address] Hemoglobin (Bld) [Mass/Vol] 10.2 g/dL Low 11.7-16.0 [facility] Comment on above: Performed By: #### H EMDF ####[address] Lymphocytes (Bld) [#/Vol] 4.9 10*3/uL High 1.0-4.3 [facility] Comment on above: Performed By: #### H EMDF ####[address] Lymphocytes/100 WBC (Bld) 45.4 % High 20.0-40.0 [facility] Comment on above: Performed By: #### H EMDF ####[address] MCH (RBC) [Entitic mass] 25.9 pg Low 26.0-34.0 [facility] Comment on above: Performed By: #### H EMDF ####[address] MCHC 31.9 % Low 32.0-36.0 [facility] Comment on above: Performed By: #### H EMDF ####[address] MCV (RBC) [Entitic vol] 81.2 fL Normal 79.0-98.0 [facility] Comment on above: Performed By: #### H EMDF ####[address] Monocytes (Bld) [#/Vol] 0.7 10*3/uL Normal 0.0-0.8 [facility] Comment on above: Performed By: #### H EMDF ####[address] [place] Monocytes/100 WBC (Bld) 6.3 % Normal 2.0-10.0 [facility] Comment on above: Performed By: #### H EMDF ####[address] [place] Platelet mean volume (Bld) [Entitic vol] 9.9 fL Normal 7.4-10.4 [facility] Comment on above: Performed By: #### H EMDF ####[address] [place] Platelets (Bld) [#/Vol] 679 10*3/uL High 140-440 [facility] Comment on above: Performed By: #### H EMDF ####[address] [place] RBC (Bld) [#/Vol] 3.93 10*6/uL Normal 3.80-5.20 [facility] Comment on above: Performed By: #### H EMDF ####[address] [place] WBC (Bld) [#/Vol] 10.7 10*3/uL Normal 3.6-10.7 [facility] Comment on above: Performed By: #### H EMDF ####[address] [place], [place] CR Chest Portableon 04-19-19 22 CR Chest Portable Normal [facility] Complete Urinalysison 2021 Appearance (U) Turbid Abnormal [facility] Comment on above: Result Comment: . Performed By: #### C UA2 ####[address] [place], [place] Bilirubin,Urine Negative Normal Negative [facility] Comment on above: Result Comment: . Performed By: #### C UA2 ####[address] [place], [place] Color (U) Light-Yellow Normal Lt. Yellow [facility] Comment on above: Result Comment: . Performed By: #### C UA2 ####[address] . [place], [place] Glucose Ql (U) Normal Normal Normal (<70) [facility] Comment on above: Result Comment: . Performed By: #### C UA2 ####[address] [place], [place] Ketone,Urine Negative Normal Negative [facility] Comment on above: Result Comment: . Performed By: #### C UA2 ####[address] Leukocytes,Urine Negative Normal Negative [facility] Comment on above: Result Comment: . Performed By: #### C UA2 ####[address] Nitrites,Urine Negative Normal Negative [facility] Comment on above: Result Comment: . Performed By: #### C UA2 ####[address] Occult Blood,Urine Negative Normal Negative [facility] Comment on above: Result Comment: . Performed By: #### C UA2 ####[address] pH,Urine 7.5 Normal 5.0-8.0 [facility] Comment on above: Result Comment: . Performed By: #### C UA2 ####[address] [place], [place] Specific [place],Urine 1.013 Normal 1.005 - 1.030 [facility] Comment on above: Result Comment: . Performed By: #### C UA2 ####[address] Total Protein,Urine Negative Normal Negative [facility] Comment on above: Result Comment: . Performed By: #### C UA2 ####[address] Urobilinogen,Urine Normal Normal Normal (0-1) [facility] Comment on above: Result Comment: . Performed By: #### C UA2 ####[facility] [place] [address] Urinalysison 04-18-2021 Appearance (U) Turbid Abnormal Clear NA [facility] Comment on above: . Bilirubin Urine Negative Negative mg/dL [facility] Comment on above: . Color (U) Light-Yellow Lt. Yellow NA [facility] Comment on above: . Glucose, Ur Normal Normal (<70) mg/dL [facility] Comment on above: . Interpretation and review of laboratory results Abnormal [facility] Ketones Ql (U) Negative Negative mg/dL [facility] Comment on above: . LEUKOCYTES, UA Negative Negative Richard/uL [facility] Comment on above: . Nitrite, Urine Negative Negative NA [facility] Comment on above: . Occult Blood,Urine Negative Negative mg/dL [facility] Comment on above: . pH (U) 7.5 [pH] [facility] Comment on above: . Specific [place], Urine 1.013 [facility] Comment on above: . Total Protein, Urine Negative Negativ e mg/dL [facility] Comment on above: . Urobilinogen, Urine Normal Normal ( 0-1) mg/dL [facility] Comment on above: . Test Performed by [facility], [address] [place], [place] [id number] [place] [address] LAB [facility] XR CHEST PORTABLEon 04-19-19 Patient Name: DEIDRA GOLDSTEIN Diagnostic Radiology ACCESSION EXAM DATE/TIME PROCEDURE ORDERING PROVIDER [id number] 04/18/2021 00:37 EST CR Chest Portable [id number] [facility] CPT code 94748 Reason For Exam (CR Chest Portable) leukocytosis [...] Transcribed Date and Time: 04/18/2021 0:50 [facility] Clau Treviño DO - 04/18/2021 Patient Name[id number] Diagnostic Radiology ACCESSION EXAM DATE/TIME PROCEDURE ORDERING PROVIDER [id number] 04/18/2021 00:37 EST CR Chest Portable [id number] -KIBE BELL CPT code 98484 Reason For Exam (CR Chest Portable) leukocytosis [...] I Transcribed Date and Time: 04/18/2021 0:50 [facility] Work Phone: Radiology Study observation (narrative) [facility] Work Phone: XR CHEST PORTABLEOrdered By: Clau Mares on 04-18-2021 [facility] Work Phone: Basic Metabolic Panelon 03-0 Calcium [Mass/Vol] 10.3 mg/dL Normal 8.4-10.4 [facility] Comment on above: Performed By: #### B MP3, HEMDF, MG3, LFT3 ####[facility] [id number] [place] [address] Glucose [Mass/Vol] 125 mg/dL High 70-100 [facility] Comment on above: Performed By: #### B MP3, HEMDF, MG3, LFT3 ####[facility] [id number] [place], [place] Urea nitrogen [Mass/Vol] 11 mg/dL Normal 9-20 [facility] Comment on above: Performed By: #### B MP3, HEMDF, MG3, LFT3 ####[facility] [id number] [place], [place] Anion gap [Moles/Vol] 6 mmol/L Normal 3-13 [facility] Comment on above: Performed By: #### B MP3, HEMDF, MG3, LFT3 ####[address] [place], [place] CO2 [Moles/Vol] 27 mmol/L Normal 22-30 [facility] Comment on above: Performed By: #### B MP3, HEMDF, MG3, LFT3 ####[facility] [id number] [place], [place] Creatinine [Mass/Vol] 0.45 mg/dL Low 0.52-1.25 [facility] Comment on above: Performed By: #### B MP3, HEMDF, MG3, LFT3 ####[facility] [id number] [place], [place] eGFR OTHER > 90.0 Normal >60 [facility] Comment on above: Result Comment: KDIG O guidelines provide the following GFR categories:Stage GFR(ml/min/1.73 m2) TermsG1 >=90 Normal or highG2 60-89 Mildly decreased*G3a 45-59 Mildly to moderately [id number] 30-44 Moderately to severely decreasedG4 15-29 Severely [...] By: #### B MP3, HEMDF, MG3, LFT3 ####[facility] [id number] [place] [address] GFR/1.73 sq M.predicted among blacks MDRD (S/P/Bld) [Vol rate/Area] mL/min/{1.73_m2} Normal >60 [facility] Comment on above: Performed By: #### B MP3, HEMDF, MG3, LFT3 ####[facility] [id number] [place] [address] Chloride [Moles/Vol] 103 mmol/L Normal 98-107 [facility] Comment on above: Performed By: #### B MP3, HEMDF, MG3, LFT3 ####[facility] [id number] [place], [place] Potassium [Moles/Vol] 4.9 mmol/L Normal 3.5-5.1 [facility] Comment on above: Result Comment: Slig htly hemolysed, interpret with caution. Performed By: #### B MP3, HEMDF, MG3, LFT3 ####[facility] [id number] [place], [place] Sodium [Moles/Vol] 136 mmol/L Normal 135-145 [facility] Comment on above: Performed By: #### B MP3, HEMDF, MG3, LFT3 ####[facility] [id number] [place], [place] Anion gap [Moles/Vol] 6 mmol/L 3 - 13 mmol/L [facility] Calcium [Mass/Vol] 10.3 mg/dL 8.4 - 10. 4 mg/dL [facility] Chloride [Moles/Vol] 103 mmol/L 98 - 10 7 mmol/L [facility] CO2 [Moles/Vol] 27 mmol/L 22 - 30 mmol/L [facility] Creatinine [Mass/Vol] 0.45 mg/dL Low 0.52 - 1.25 mg/dL [facility] EGFR IF NonAfrican Burundian >90.0 >60 mL/min [facility] Comment on above: KDIGO guidelines pro vide [...] - 10.7 10*3/uL [facility] Test Performed by [facility], [address] [place] [address] [facility] ED Provider Noteon 2 ED Provider Note Normal [facility] Hemogram w/ Autodiffon 04-17 Abs Baso Cnt 0.1 10*3/uL Normal 0.0-0.2 [facility] Comment on above: Performed By: #### B MP3, HEMDF, MG3, LFT3 ####[facility] [place] [address] Abs Neutrophile Cnt 8.3 10*3/uL High 1.8-7.0 [facility] Comment on above: Performed By: #### B MP3, HEMDF, MG3, LFT3 ####[address] Basophils/100 WBC (Bld) 1.0 % Normal 0.0-2.0 [facility] Comment on above: Performed By: #### B MP3, HEMDF, MG3, LFT3 ####[address] Eosinophils (Bld) [#/Vol] 0.2 10*3/uL Normal 0.0-0.5 [facility] Comment on above: Performed By: #### B MP3, HEMDF, MG3, LFT3 ####[address] Eosinophils/100 WBC (Bld) 1.7 % Normal 1.0-6.0 [facility] Comment on above: Performed By: #### B MP3, HEMDF, MG3, LFT3 ####[address] Erythrocyte distribution width (RBC) [Ratio] 16.8 % High 11.5-14.5 [facility] Comment on above: Performed By: #### B MP3, HEMDF, MG3, LFT3 ####[address] Granulocytes/100 WBC (Bld) 59.5 % Normal 40.0-80.0 [facility] Comment on above: Performed By: #### B MP3, HEMDF, MG3, LFT3 ####[address] Hematocrit (Bld) [Volume fraction] 40.2 % Normal 35.0-47.0 [facility] Comment on above: Performed By: #### B MP3, HEMDF, MG3, LFT3 ####[address] Hemoglobin (Bld) [Mass/Vol] 12.7 g/dL Normal 11.7-16.0 [facility] Comment on above: Performed By: #### B MP3, HEMDF, MG3, LFT3 ####[address] Lymphocytes (Bld) [#/Vol] 4.5 10*3/uL High 1.0-4.3 [facility] Comment on above: Performed By: #### B MP3, HEMDF, MG3, LFT3 ####[address] Lymphocytes/100 WBC (Bld) 32.3 % Normal 20.0-40.0 [facility] Comment on above: Performed By: #### B MP3, HEMDF, MG3, LFT3 ####[address] MCH (RBC) [Entitic mass] 25.6 pg Low 26.0-34.0 [facility] Comment on above: Performed By: #### B MP3, HEMDF, MG3, LFT3 ####[address] MCHC 31.6 % Low 32.0-36.0 [facility] Comment on above: Performed By: #### B MP3, HEMDF, MG3, LFT3 ####[address] MCV (RBC) [Entitic vol] 81.3 fL Normal 79.0-98.0 [facility] Comment on above: Performed By: #### B MP3, HEMDF, MG3, LFT3 ####[address] Monocytes (Bld) [#/Vol] 0.8 10*3/uL Normal 0.0-0.8 [facility] Comment on above: Performed By: #### B MP3, HEMDF, MG3, LFT3 ####[address] Monocytes/100 WBC (Bld) 5.5 % Normal 2.0-10.0 [facility] Comment on above: Performed By: #### B MP3, HEMDF, MG3, LFT3 ####[address] [place], [place] Platelet mean volume (Bld) [Entitic vol] 9.6 fL Normal 7.4-10.4 [facility] Comment on above: Performed By: #### B MP3, HEMDF, MG3, LFT3 ####[address] [place], [place] Platelets (Bld) [#/Vol] 647 10*3/uL High 140-440 [facility] Comment on above: Performed By: #### B MP3, HEMDF, MG3, LFT3 ####[address] [place], [place] RBC (Bld) [#/Vol] 4.95 10*6/uL Normal 3.80-5.20 [facility] Comment on above: Performed By: #### B MP3, HEMDF, MG3, LFT3 ####[address] [place], [place] WBC (Bld) [#/Vol] 13.9 10*3/uL High 3.6-10.7 [facility] Comment on above: Performed By: #### B MP3, HEMDF, MG3, LFT3 ####[address] [place], [place] Hepatic Functionon 2 ALP [Catalytic activity/Vol] 167 U/L High 38-126 [facility] Comment on above: Result Comment: Slig htly hemolysed, interpret with caution. Performed By: #### B MP3, HEMDF, MG3, LFT3 ####[address] [place], [place] ALT [Catalytic activity/Vol] 22 U/L Normal 0-34 [facility] Comment on above: Result Comment: The ALT test is performed by an updated assay method.Please note that the reference intervals have beenchanged and are now sex specific. Performed By: #### B MP3, HEMDF, MG3, LFT3 ####[address] [place], [place] AST [Catalytic activity/Vol] 36 U/L Normal 15-46 [facility] Comment on above: Result Comment: Slig htly hemolysed, interpret with caution. Performed By: #### B MP3, HEMDF, MG3, LFT3 ####[address] [place], [place] Bilirubin [Mass/Vol] 0.7 mg/dL Normal 0.2-1.3 [facility] Comment on above: Performed By: #### B MP3, HEMDF, MG3, LFT3 ####[address] Protein [Mass/Vol] 8.3 g/dL High 6.3-8.2 [facility] Comment on above: Result Comment: Slig htly hemolysed, interpret with caution. Performed By: #### B MP3, HEMDF, MG3, LFT3 ####[address] [place], [place] Bilirubin.indirect [Mass/Vol] 0.0 mg/dL Normal 0.0-0.3 [facility] Comment on above: Performed By: #### B MP3, HEMDF, MG3, LFT3 ####[address] Albumin [Mass/Vol] 4.4 g/dL Normal 3.5-5.0 [facility] Comment on above: Result Comment: Slig htly hemolysed, interpret with caution. Performed By: #### B MP3, HEMDF, MG3, LFT3 ####[address] [place], [place] Hepatic Function Panelon Albumin [Mass/Vol] 4.4 g/dL 3.5 - 5.0 g/dL [facility] Comment on above: Slightly hemolysed, interpret with [...] 04-17-2021 Magnesium [Mass/Vol] 2.1 mg/dL Normal 1.6-2.3 [facility] Comment on above: Result Comment: Slig htly hemolysed, interpret with caution. Performed By: #### B MP3, HEMDF, MG3, LFT3 ####[address] [address] Magnesium [Mass/Vol] 2.1 mg/dL 1.6 - 2 .3 mg/dL [facility] Comment on above: Slightly hemolysed, interpret with caution. No Panel Informationon 04-17 Interpretation and review of laboratory results Abnormal [facility] Test Performed by [facility], [address], [place] [id number] [place] [address] LAB [facility] Ammoniaon 04-12-2021 Ammonia (P) [Mass/Vol] ug/dL Normal 9-30 [facility] Comment on above: Performed By: #### N H33 ####[address] [address] VL Venous Duplex US Lower Ex t Bilateralon 04-12-2021 VL Venous Duplex US Lower Ext Bilateral Normal [facility] [id number] 04-11-2021 SARS-CoV-2 (COVID-19) RNA CAPRICE+probe Ql (Unsp spec) Normal [facility] Comment on above: Performed By: #### C OVID ####[address] [facility] [place] Comp Metabolic Panelon 04-10 ALP [Catalytic activity/Vol] 217 U/L High 38-126 [facility] Comment on above: Performed By: #### M G3, CMP3, PHOS3 ####[address] [facility] [place] ALT [Catalytic activity/Vol] 24 U/L Normal 0-34 [facility] Comment on above: Result Comment: The ALT test is performed by an updated assay method.Please note that the reference intervals have beenchanged and are now sex specific. Performed By: #### M Wu, CMP3, PHOS3 ####[address] [facility] AST [Catalytic activity/Vol] 41 U/L Normal 15-46 [facility] Comment on above: Performed By: #### M G3, CMP3, PHOS3 ####[address] [facility] Calcium [Mass/Vol] 10.5 mg/dL High 8.4-10.4 [facility] Comment on above: Performed By: #### M G3, CMP3, PHOS3 ####[address] [facility] Glucose [Mass/Vol] 107 mg/dL High 70-100 [facility] Comment on above: Performed By: #### M G3, CMP3, PHOS3 ####[address] [facility] Protein [Mass/Vol] 7.9 g/dL Normal 6.3-8.2 [facility] Comment on above: Performed By: #### M G3, CMP3, PHOS3 ####[address] [facility] Urea nitrogen [Mass/Vol] 25 mg/dL High 9-20 [facility] Comment on above: Performed By: #### M G3, CMP3, PHOS3 ####[facility] [address] [place] [address] Anion gap [Moles/Vol] 8 mmol/L Normal 3-13 [facility] Comment on above: Performed By: #### M G3, CMP3, PHOS3 ####[address] [place] [address] Bilirubin [Mass/Vol] 0.4 mg/dL Normal 0.2-1.3 [facility] Comment on above: Performed By: #### M G3, CMP3, PHOS3 ####[address] [place] [address] CO2 [Moles/Vol] 31 mmol/L High 22-30 [facility] Comment on above: Performed By: #### M G3, CMP3, PHOS3 ####[address] [place] [address] Creatinine [Mass/Vol] 0.86 mg/dL Normal 0.52-1.25 [facility] Comment on above: Performed By: #### Ward G3, CMP3, PHOS3 ####[address] [place] [address] GFR/1.73 sq M.predicted among blacks MDRD (S/P/Bld) [Vol rate/Area] mL/min/{1.73_m2} Normal >60 [facility] Comment on above: Performed By: #### M G3, CMP3, PHOS3 ####[address] [place] [address] GFR/1.73 sq M.predicted among non-blacks MDRD (S/P/Bld) [Vol rate/Area] 79.3 mL/min/{1.73_m2} Normal >60 [facility] Comment on above: Result Comment: KDIG O guidelines provide the following GFR categories:Stage GFR(ml/min/1.73 m2) TermsG1 >=90 Normal or highG2 60-89 Mildly decreased*G3a 45-59 Mildly to moderately [id number] 30-44 Moderately to severely decreasedG4 15-29 Severely [...] Performed By: #### M Wu CMP3, PHOS3 ####[address] [place] [address] Potassium [Moles/Vol] 4.3 mmol/L Normal 3.5-5.1 [facility] Comment on above: Performed By: #### Ward Washburn CMP3, PHOS3 ####[address] [place] [address] Sodium [Moles/Vol] 139 mmol/L Normal 135-145 [facility] Comment on above: Performed By: #### Ward Washburn CMP3, PHOS3 ####[address] [place] [address] Albumin [Mass/Vol] 4.2 g/dL Normal 3.5-5.0 [facility] Comment on above: Performed By: #### Ward Washburn CMP3, PHOS3 ####[address] [place] [address] Chloride [Moles/Vol] 99 mmol/L Normal 98-107 [facility] Comment on above: Performed By: #### M Wu CMP3, PHOS3 ####[address] [place] [address] Hemogramon 04-10-2021 Erythrocyte distribution width (RBC) [Ratio] 16.2 % High 11.5-14.5 [facility] Comment on above: Performed By: #### H EMOG ####[address] [place] [address] Hematocrit (Bld) [Volume fraction] 37.9 % Normal 35.0-47.0 [facility] Comment on above: Performed By: #### H EMOG ####[address] [place], [place] Hemoglobin (Bld) [Mass/Vol] 11.8 g/dL Normal 11.7-16.0 [facility] Comment on above: Performed By: #### H EMOG ####[address] [place], [place] MCH (RBC) [Entitic mass] 25.9 pg Low 26.0-34.0 [facility] Comment on above: Performed By: #### H EMOG ####[address] MCHC 31.1 % Low 32.0-36.0 [facility] Comment on above: Performed By: #### H EMOG ####[address] MCV (RBC) [Entitic vol] 83.3 fL Normal 79.0-98.0 [facility] Comment on above: Performed By: #### H EMOG ####[address] Platelet mean volume (Bld) [Entitic vol] 9.2 fL Normal 7.4-10.4 [facility] Comment on above: Performed By: #### H EMOG ####[address] Platelets (Bld) [#/Vol] 705 10*3/uL High 140-440 [facility] Comment on above: Performed By: #### H EMOG ####[address] RBC (Bld) [#/Vol] 4.55 10*6/uL Normal 3.80-5.20 [facility] Comment on above: Performed By: #### H EMOG ####[address] WBC (Bld) [#/Vol] 11.3 10*3/uL High 3.6-10.7 [facility] Comment on above: Performed By: #### H EMOG ####[facility] [place], [place] Magnesiumon 04-10-2021 Magnesium [Mass/Vol] 2.1 mg/dL Normal 1.6-2.3 [facility] Comment on above: Performed By: #### M G3, CMP3, PHOS3 ####[facility] [place], [place] Phosphoruson 04-10-2021 Phosphate [Mass/Vol] 6.0 mg/dL High 2.5-4.5 [facility] Comment on above: Performed By: #### M G3, CMP3, PHOS3 ####[address] [place], [place] VL Venous Duplex US Lower Ex t Bilateralon 04-09-2021 VL Venous Duplex US Lower Ext Bilateral Normal [facility] VL Venous Duplex US Lower Ex t Bilateralon 04-05-2021 VL Venous Duplex US Lower Ext Bilateral Normal [facility] VL Venous Duplex US Lower Ex t Bilateralon 04-02-2021 VL Venous Duplex US Lower Ext Bilateral Normal [facility] CT Up Ext w/o Contrast Lefto n 03-31-2021 CT Up Ext w/o Contrast Left Normal [facility] Clostridium difficile PCRon 03-31-2021 Clostridium difficile PCR Normal [facility] Comment on above: Performed By: #### C DPCR ####, [id number] performing lab is in the report. CR Forearm 2 Views Lefton CR Forearm 2 Views Left Normal [facility] CR Hand Complete 3+ Views Le fton 03-30-2021 CR Hand Complete 3+ Views Left Normal [facility] CR Knee 3 Views Righton 03-20 CR Knee 3 Views Right Normal [facility] CR Pelvis 1 or 2 Viewson CR Pelvis 1 or 2 Views Normal [facility] CR Tibia/Fibula 2 Views Righ ton 03-30-2021 CR Tibia/Fibula 2 Views Right Normal [facility] Basic Metabolic Panelon 03-20 Calcium [Mass/Vol] 10.2 mg/dL Normal 8.4-10.4 [facility] Comment on above: Performed By: #### H EMDF, BMP3 ####[facility] [id number] [place], [place] Glucose [Mass/Vol] 104 mg/dL High 70-100 [facility] Comment on above: Performed By: #### H EMDF, BMP3 ####[facility] [id number] [place], [place] Urea nitrogen [Mass/Vol] 14 mg/dL Normal 9-20 [facility] Comment on above: Performed By: #### H EMDF, BMP3 ####[facility] [id number] [place], [place] Anion gap [Moles/Vol] 7 mmol/L Normal 3-13 [facility] Comment on above: Performed By: #### H EMDF, BMP3 ####[facility] [id number] [place], [place] CO2 [Moles/Vol] 30 mmol/L Normal 22-30 [facility] Comment on above: Performed By: #### H EMDF, BMP3 ####[facility] [id number] [place], [place] Creatinine [Mass/Vol] 0.69 mg/dL Normal 0.52-1.25 [facility] Comment on above: Performed By: #### H EMDF, BMP3 ####[facility] [id number] [place], [place] eGFR OTHER > 90.0 Normal >60 [facility] Comment on above: Result Comment: KDIG O guidelines provide the following GFR categories:Stage GFR(ml/min/1.73 m2) TermsG1 >=90 Normal or highG2 60-89 Mildly decreased*G3a 45-59 Mildly to moderately usmobcxfsJ0p 30-44 Moderately to severely decreasedG4 15-29 Severely [...] secretion. Performed By: #### H CURLY BMP3 ####[address] [place], [place] GFR/1.73 sq M.predicted among blacks MDRD (S/P/Bld) [Vol rate/Area] mL/min/{1.73_m2} Normal >60 [facility] Comment on above: Performed By: #### H CURLY BMP3 ####[address] Potassium [Moles/Vol] 4.0 mmol/L Normal 3.5-5.1 [facility] Comment on above: Performed By: #### H CURLY BMP3 ####[address] Sodium [Moles/Vol] 141 mmol/L Normal 135-145 [facility] Comment on above: Performed By: #### H CURLY BMP3 ####[address] Chloride [Moles/Vol] 104 mmol/L Normal 98-107 [facility] Comment on above: Performed By: #### H CURLY BMP3 ####[address] CR Knee 3 Views Lefton 03-29 CR Knee 3 Views Left Normal [facility] ED Provider Noteon 2 ED Provider Note Normal [facility] Hemogram w/ Autodiffon 03-29 Abs Baso Cnt 0.3 10*3/uL High 0.0-0.2 [facility] Comment on above: Performed By: #### H CURLY, BMP3 ####[address] Abs Neutrophile Cnt 6.7 10*3/uL Normal 1.8-7.0 [facility] Comment on above: Performed By: #### H EMDF, BMP3 ####[address] [place], [place] Basophils/100 WBC (Bld) 2.3 % High 0.0-2.0 [facility] Comment on above: Performed By: #### H EMDF, BMP3 ####[address] [place], [place] Eosinophils (Bld) [#/Vol] 0.7 10*3/uL High 0.0-0.5 [facility] Comment on above: Performed By: #### H EMDF, BMP3 ####[address] Eosinophils/100 WBC (Bld) 4.9 % Normal 1.0-6.0 [facility] Comment on above: Performed By: #### H EMDF, BMP3 ####[address] Erythrocyte distribution width (RBC) [Ratio] 16.9 % High 11.5-14.5 [facility] Comment on above: Performed By: #### H EMDF, BMP3 ####[address] Granulocytes/100 WBC (Bld) 46.4 % Normal 40.0-80.0 [facility] Comment on above: Performed By: #### H EMDF, BMP3 ####[address] Hematocrit (Bld) [Volume fraction] 38.5 % Normal 35.0-47.0 [facility] Comment on above: Performed By: #### H EMDF, BMP3 ####[address] Hemoglobin (Bld) [Mass/Vol] 12.0 g/dL Normal 11.7-16.0 [facility] Comment on above: Performed By: #### H EMDF, BMP3 ####[address] Lymphocytes (Bld) [#/Vol] 6.0 10*3/uL High 1.0-4.3 [facility] Comment on above: Performed By: #### H CURLY BMP3 ####[address] Lymphocytes/100 WBC (Bld) 41.1 % High 20.0-40.0 [facility] Comment on above: Performed By: #### H CURLY BMP3 ####[address] MCH (RBC) [Entitic mass] 26.4 pg Normal 26.0-34.0 [facility] Comment on above: Performed By: #### H CURLY BMP3 ####[address] MCHC 31.2 % Low 32.0-36.0 [facility] Comment on above: Performed By: #### H CURLY BMP3 ####[address] MCV (RBC) [Entitic vol] 84.4 fL Normal 79.0-98.0 [facility] Comment on above: Performed By: #### H CURLY BMP3 ####[address] Monocytes (Bld) [#/Vol] 0.8 10*3/uL Normal 0.0-0.8 [facility] Comment on above: Performed By: #### H CURLY BMP3 ####[address] Monocytes/100 WBC (Bld) 5.3 % Normal 2.0-10.0 [facility] Comment on above: Performed By: #### H CURLY BMP3 ####[address] Platelet mean volume (Bld) [Entitic vol] 8.9 fL Normal 7.4-10.4 [facility] Comment on above: Performed By: #### H EMDF, BMP3 ####[facility] [id number] [place], [place] Platelets (Bld) [#/Vol] 723 10*3/uL High 140-440 [facility] Comment on above: Performed By: #### H EMDF, BMP3 ####[facility] [address] [place], [place] RBC (Bld) [#/Vol] 4.56 10*6/uL Normal 3.80-5.20 [facility] Comment on above: Performed By: #### H EMDF, BMP3 ####[facility] [address] . [place], [place] WBC (Bld) [#/Vol] 14.5 10*3/uL High 3.6-10.7 [facility] Comment on above: Performed By: #### H EMDF, BMP3 ####[address] [place], [place] CULTURE MYCOBACTERIAon 03-13 CULTURE MYCOBACTERIA CULTURE MYCOBACTERI A --> Status: F No acid-fast bacilli isolated after 6 weeks incubation. Normal [facility] Comment on above: Performed By: #### C /TB, S/TB ####[facility] [id number] . [place], [place] CULTURE FUNGUSon 03-08-2021 CULTURE FUNGUS CULTURE FUNGUS --> Status: F No fungus isolated after 21 days. Normal [facility] Comment on above: Performed By: #### S /FUN, C/FUN ####[facility] [id number] . [place], [place] CULTURE FUNGUSon 02-19-2021 CULTURE FUNGUS CULTURE FUNGUS --> Status: F No fungus isolated after 21 days. Normal [facility] Comment on above: Performed By: #### S /FUN, C/FUN ####[facility] [id number] . [place], [place] CULTURE FUNGUS CULTURE FUNGUS --> Status: F No fungus isolated after 21 days. Normal [facility] Comment on above: Performed By: #### S /FUN, C/FUN ####[address] CULT/STAIN - AEROBIC AND FELY EROBICon 02-18-2021 CULT/STAIN - AEROBIC AND ANAEROBIC STAIN GRAM --> Status: F Few polymorphonuclear cells/lpf. No organisms seen. No organisms seen. CULT./ST. BACTERIA --> Status: F No growth at 3 days. CULTURE ANAEROBE --> Status: F No growth of anaerobes at 5 days. Normal [facility] Comment on above: Performed By: #### C XAAN ####[address] CULTURE MYCOBACTERIA Conc.on 02-14-2021 CULTURE MYCOBACTERIA Conc. CULTURE MYCOBACTERIA Conc. --> Status: F No acid-fast bacilli isolated after 6 weeks incubation. STAIN ACID-FAST --> Status: F No acid-fast bacilli seen in smear. - Method: Fluorescent Stain - Method: Fluorescent Stain Normal [facility] Comment on above: Performed By: #### C /TBC ####[address] Glucose,Bedsideon 02-14-2021 Glucose [Mass/Vol] 153 mg/dL High 70-100 [facility] Comment on above: Result Comment: Test performed by glucose meter. Results may be 10%-15% lowerthan serum/plasma values. (CLIA ID [id number]) Performed By: #### B GLU ####[address] Hemogramon 02-14-2021 Erythrocyte distribution width (RBC) [Ratio] 17.7 % High 11.5-14.5 [facility] Comment on above: Performed By: #### H EMOG ####[address] Hematocrit (Bld) [Volume fraction] 28.7 % Low 35.0-47.0 [facility] Comment on above: Performed By: #### H EMOG ####[address] Hemoglobin (Bld) [Mass/Vol] 8.6 g/dL Low 11.7-16.0 [facility] Comment on above: Performed By: #### H EMOG ####[id number] . [place], [place] MCH (RBC) [Entitic mass] 27.4 pg Normal 26.0-34.0 [facility] Comment on above: Performed By: #### H EMOG ####[address] [place], [place] MCHC 30.2 % Low 32.0-36.0 [facility] Comment on above: Performed By: #### H EMOG ####[address] [place], [place] MCV (RBC) [Entitic vol] 90.7 fL Normal 79.0-98.0 [facility] Comment on above: Performed By: #### H EMOG ####[address] [place], [place] Platelet mean volume (Bld) [Entitic vol] 7.6 fL Normal 7.4-10.4 [facility] Comment on above: Performed By: #### H EMOG ####[address] [place], [place] Platelets (Bld) [#/Vol] 1210 10*3/uL High 140-440 [facility] Comment on above: Performed By: #### H EMOG ####[address] [place], [place] RBC (Bld) [#/Vol] 3.16 10*6/uL Low 3.80-5.20 [facility] Comment on above: Performed By: #### H EMOG ####[address] [place], [place] WBC (Bld) [#/Vol] 11.4 10*3/uL High 3.6-10.7 [facility] Comment on above: Performed By: #### H EMOG ####[address] [place], [place] Op Noteon 02-14-2021 Op Note Normal [facility] STAIN FUNGUSon 02-14-2021 STAIN FUNGUS STAIN FUNGUS --> Sta tus: F No fungal elements seen. - Method: Direct Exam by Calcofluor Stain - Method: Direct Exam by Calcofluor Stain Normal [facility] Comment on above: Performed By: #### S /FUN, C/FUN ####[address] [place], [place] Hemogramon 02-13-2021 Erythrocyte distribution width (RBC) [Ratio] 17.7 % High 11.5-14.5 [facility] Comment on above: Performed By: #### H EMOG ####[address] [place], [place] Hematocrit (Bld) [Volume fraction] 28.7 % Low 35.0-47.0 [facility] Comment on above: Performed By: #### H EMOG ####[address] [place], [place] Hemoglobin (Bld) [Mass/Vol] 8.8 g/dL Low 11.7-16.0 [facility] Comment on above: Performed By: #### H EMOG ####[address] [place], [place] MCH (RBC) [Entitic mass] 27.8 pg Normal 26.0-34.0 [facility] Comment on above: Performed By: #### H EMOG ####[address] [place] MCHC 30.6 % Low 32.0-36.0 [facility] Comment on above: Performed By: #### H EMOG ####[address] MCV (RBC) [Entitic vol] 90.7 fL Normal 79.0-98.0 [facility] Comment on above: Performed By: #### H EMOG ####[address] Platelet mean volume (Bld) [Entitic vol] 7.6 fL Normal 7.4-10.4 [facility] Comment on above: Performed By: #### H EMOG ####[address] [place], [place] Platelets (Bld) [#/Vol] 1275 10*3/uL High 140-440 [facility] Comment on above: Performed By: #### H EMOG ####[address] [place], [place] RBC (Bld) [#/Vol] 3.17 10*6/uL Low 3.80-5.20 [facility] Comment on above: Performed By: #### H EMOG ####[address] [place], [place] WBC (Bld) [#/Vol] 11.3 10*3/uL High 3.6-10.7 [facility] Comment on above: Performed By: #### H EMOG ####[address] [place], [place] VL Venous Duplex US Lower Ex t Bilateralon 02-13-2021 VL Venous Duplex US Lower Ext Bilateral Normal [facility] CKon 02-12-2021 CK < 20 Low 30-170 [facility] Comment on above: Performed By: #### C K3, HEMOG, CMP3M ####[address] [place], [place] Comp Panel with Mg Reflexon 02-12-2021 ALP [Catalytic activity/Vol] 285 U/L High 38-126 [facility] Comment on above: Performed By: #### C K3, HEMOG, CMP3M ####[address] [place], [place] ALT [Catalytic activity/Vol] 19 U/L Normal 0-34 [facility] Comment on above: Result Comment: The ALT test is performed by an updated assay method.Please note that the reference intervals have beenchanged and are now sex specific. Performed By: #### C K3, HEMOG, CMP3M ####[address] [place], [place] Calcium [Mass/Vol] 9.4 mg/dL Normal 8.4-10.4 [facility] Comment on above: Performed By: #### C K3, HEMOG, CMP3M ####[address] [place], [place] Glucose [Mass/Vol] 106 mg/dL High 70-100 [facility] Comment on above: Performed By: #### C K3, HEMOG, CMP3M ####[address] [place] Urea nitrogen [Mass/Vol] 9 mg/dL Normal 9-20 [facility] Comment on above: Performed By: #### C K3, HEMOG, CMP3M ####[address] [place] Anion gap [Moles/Vol] 6 mmol/L Normal 3-13 [facility] Comment on above: Performed By: #### C K3, HEMOG, CMP3M ####[address] [place] AST [Catalytic activity/Vol] 35 U/L Normal 15-46 [facility] Comment on above: Performed By: #### C K3, HEMOG, CMP3M ####[address] [place] Bilirubin [Mass/Vol] 0.4 mg/dL Normal 0.2-1.3 [facility] Comment on above: Performed By: #### C K3, HEMOG, CMP3M ####[address] [place], [place] CO2 [Moles/Vol] 28 mmol/L Normal 22-30 [facility] Comment on above: Performed By: #### C K3, HEMOG, CMP3M ####[address] [place], [place] Creatinine [Mass/Vol] 0.65 mg/dL Normal 0.52-1.25 [facility] Comment on above: Performed By: #### C K3, HEMOG, CMP3M ####[address] [place], [place] eGFR OTHER > 90.0 Normal >60 [facility] Comment on above: Result Comment: KDIG O guidelines provide the following GFR categories:Stage GFR(ml/min/1.73 m2) TermsG1 >=90 Normal or highG2 60-89 Mildly decreased*G3a 45-59 Mildly to moderately [id number] 30-44 Moderately to severely decreasedG4 15-29 Severely [...] renal tubular creatinine secretion. Performed By: #### ANA Barrett CMP3M ####[facility] [id number] [place], [place] GFR/1.73 sq M.predicted among blacks MDRD (S/P/Bld) [Vol rate/Area] mL/min/{1.73_m2} Normal >60 [facility] Comment on above: Performed By: #### ANA Barrett CMP3M ####[facility] [id number] [place], [place] Protein [Mass/Vol] 6.4 g/dL Normal 6.3-8.2 [facility] Comment on above: Performed By: #### ANA Brarett CMP3M ####[facility] [id number] [place], [place] Potassium [Moles/Vol] 4.2 mmol/L Normal 3.5-5.1 [facility] Comment on above: Performed By: #### ANA Barrett CMP3M ####[facility] [id number] [place], [place] Sodium [Moles/Vol] 138 mmol/L Normal 135-145 [facility] Comment on above: Performed By: #### C K3, HEMOG, CMP3M ####[address] [place], [place] Albumin [Mass/Vol] 3.1 g/dL Low 3.5-5.0 [facility] Comment on above: Performed By: #### C K3, HEMOG, CMP3M ####[address] [place], [place] Chloride [Moles/Vol] 103 mmol/L Normal 98-107 [facility] Comment on above: Performed By: #### C K3, HEMOG, CMP3M ####[address] [place], [place] Hemogramon 02-12-2021 Erythrocyte distribution width (RBC) [Ratio] 16.9 % High 11.5-14.5 [facility] Comment on above: Performed By: #### C K3, HEMOG, CMP3M ####[address] [place], [place] Hematocrit (Bld) [Volume fraction] 27.3 % Low 35.0-47.0 [facility] Comment on above: Performed By: #### C K3, HEMOG, CMP3M ####[address] [place] Hemoglobin (Bld) [Mass/Vol] 8.5 g/dL Low 11.7-16.0 [facility] Comment on above: Performed By: #### C K3, HEMOG, CMP3M ####[address] [place] MCH (RBC) [Entitic mass] 28.3 pg Normal 26.0-34.0 [facility] Comment on above: Performed By: #### C K3, HEMOG, CMP3M ####[address] [place] MCHC 31.3 % Low 32.0-36.0 [facility] Comment on above: Performed By: #### C K3, HEMOG, CMP3M ####[address] [place] MCV (RBC) [Entitic vol] 90.5 fL Normal 79.0-98.0 [facility] Comment on above: Performed By: #### C Surya HEMMELANIA CMP3M ####[address] [place], [place] Platelet mean volume (Bld) [Entitic vol] 7.5 fL Normal 7.4-10.4 [facility] Comment on above: Performed By: #### C Surya HEMOG CMP3M ####[address] [place], [place] Platelets (Bld) [#/Vol] 1249 10*3/uL High 140-440 [facility] Comment on above: Performed By: #### C Surya HEMOG CMP3M ####[address] RBC (Bld) [#/Vol] 3.01 10*6/uL Low 3.80-5.20 [facility] Comment on above: Performed By: #### C K3 HEMOG, CMP3M ####[address] [place], [place] WBC (Bld) [#/Vol] 11.1 10*3/uL High 3.6-10.7 [facility] Comment on above: Performed By: #### C K3, HEMOG, CMP3M ####[address] [place] CULT/STAIN - AEROBIC AND FELY EROBICon 02-11-2021 CULT/STAIN - AEROBIC AND ANAEROBIC Normal [facility] Comment on above: Performed By: #### C ARRON ####[address] [place] [id number] [address] [place], [place] Hemogramon 02-11-2021 Erythrocyte distribution width (RBC) [Ratio] 17.3 % High 11.5-14.5 [facility] Comment on above: Performed By: #### H EMOG ####[address] Hematocrit (Bld) [Volume fraction] 26.8 % Low 35.0-47.0 [facility] Comment on above: Performed By: #### H EMOG ####[address] [place], [place] Hemoglobin (Bld) [Mass/Vol] 8.1 g/dL Low 11.7-16.0 [facility] Comment on above: Performed By: #### H EMOG ####[address] MCH (RBC) [Entitic mass] 27.8 pg Normal 26.0-34.0 [facility] Comment on above: Performed By: #### H EMOG ####[address] [place] MCHC 30.2 % Low 32.0-36.0 [facility] Comment on above: Performed By: #### H EMOG ####[address] MCV (RBC) [Entitic vol] 91.9 fL Normal 79.0-98.0 [facility] Comment on above: Performed By: #### H EMOG ####[address] Platelet mean volume (Bld) [Entitic vol] 7.8 fL Normal 7.4-10.4 [facility] Comment on above: Performed By: #### H EMOG ####[address] Platelets (Bld) [#/Vol] 1210 10*3/uL High 140-440 [facility] Comment on above: Performed By: #### H EMOG ####[address] RBC (Bld) [#/Vol] 2.92 10*6/uL Low 3.80-5.20 [facility] Comment on above: Performed By: #### H EMOG ####[address] WBC (Bld) [#/Vol] 13.3 10*3/uL High 3.6-10.7 [facility] Comment on above: Performed By: #### H EMOG ####[facility] [place], [place] C-Reactive Proteinon CRP [Mass/Vol] 35.6 mg/L High 0.0-9.9 [facility] Comment on above: Result Comment: . Performed By: #### H EMOG, CK3, CMP3, CRP2, ESR ####[address] [place], [place] CKon 02-10-2021 CK < 20 Low 30-170 [facility] Comment on above: Performed By: #### H EMOG, CK3, CMP3, CRP2, ESR ####[address] [place], [place] Comp Metabolic Panelon 02-10 ALP [Catalytic activity/Vol] 209 U/L High 38-126 [facility] Comment on above: Performed By: #### H EMOG, CK3, CMP3, CRP2, ESR ####[address] [place], [place] ALT [Catalytic activity/Vol] 15 U/L Normal 0-34 [facility] Comment on above: Result Comment: The ALT test is performed by an updated assay method.Please note that the reference intervals have beenchanged and are now sex specific. Performed By: #### H EMOG, CK3, CMP3, CRP2, ESR ####[address] . [place], [place] AST [Catalytic activity/Vol] 35 U/L Normal 15-46 [facility] Comment on above: Performed By: #### H EMOG, CK3, CMP3, CRP2, ESR ####[address] [place], [place] Bilirubin [Mass/Vol] 0.5 mg/dL Normal 0.2-1.3 [facility] Comment on above: Performed By: #### H EMOG, CK3, CMP3, CRP2, ESR ####[address] [address] [place], [place] Calcium [Mass/Vol] 9.2 mg/dL Normal 8.4-10.4 [facility] Comment on above: Performed By: #### H EMOG, CK3, CMP3, CRP2, ESR ####[address] [place], [place] Glucose [Mass/Vol] 86 mg/dL Normal 70-100 [facility] Comment on above: Performed By: #### H EMOG, CK3, CMP3, CRP2, ESR ####[address] Protein [Mass/Vol] 6.4 g/dL Normal 6.3-8.2 [facility] Comment on above: Performed By: #### H EMOG, CK3, CMP3, CRP2, ESR ####[address] Urea nitrogen [Mass/Vol] 15 mg/dL Normal 9-20 [facility] Comment on above: Performed By: #### H EMOG, CK3, CMP3, CRP2, ESR ####[address] Anion gap [Moles/Vol] 6 mmol/L Normal 3-13 [facility] Comment on above: Performed By: #### H EMOG, CK3, CMP3, CRP2, ESR ####[address] CO2 [Moles/Vol] 29 mmol/L Normal 22-30 [facility] Comment on above: Performed By: #### H EMOG, CK3, CMP3, CRP2, ESR ####[address] Creatinine [Mass/Vol] 0.74 mg/dL Normal 0.52-1.25 [facility] Comment on above: Performed By: #### H EMOG, CK3, CMP3, CRP2, ESR ####[facility] [id number] [place], [place] eGFR OTHER > 90.0 Normal >60 [facility] Comment on above: Result Comment: KDIG O guidelines provide the following GFR categories:Stage GFR(ml/min/1.73 m2) TermsG1 >=90 Normal or highG2 60-89 Mildly decreased*G3a 45-59 Mildly to moderately [id number] 30-44 Moderately to severely decreasedG4 15-29 Severely [...] #### H EMOG, CK3, CMP3, CRP2, ESR ####[facility] [id number] [place], [place] GFR/1.73 sq M.predicted among blacks MDRD (S/P/Bld) [Vol rate/Area] mL/min/{1.73_m2} Normal >60 [facility] Comment on above: Performed By: #### H EMOG, CK3, CMP3, CRP2, ESR ####[facility] [address] [place], [place] Albumin [Mass/Vol] 3.1 g/dL Low 3.5-5.0 [facility] Comment on above: Performed By: #### H EMOG, CK3, CMP3, CRP2, ESR ####[facility] [id number] [place], [place] Chloride [Moles/Vol] 102 mmol/L Normal 98-107 [facility] Comment on above: Performed By: #### H EMOG, CK3, CMP3, CRP2, ESR ####[facility] [id number] [place], [place] Potassium [Moles/Vol] 4.5 mmol/L Normal 3.5-5.1 [facility] Comment on above: Performed By: #### H EMOG, CK3, CMP3, CRP2, ESR ####[address] [place], [place] Sodium [Moles/Vol] 137 mmol/L Normal 135-145 [facility] Comment on above: Performed By: #### H EMOG, CK3, CMP3, CRP2, ESR ####[address] Hemogramon 02-10-2021 Erythrocyte distribution width (RBC) [Ratio] 17.0 % High 11.5-14.5 [facility] Comment on above: Performed By: #### H EMOG, CK3, CMP3, CRP2, ESR ####[address] Hematocrit (Bld) [Volume fraction] 27.2 % Low 35.0-47.0 [facility] Comment on above: Performed By: #### H EMOG, CK3, CMP3, CRP2, ESR ####[address] Hemoglobin (Bld) [Mass/Vol] 8.4 g/dL Low 11.7-16.0 [facility] Comment on above: Performed By: #### H EMOG, CK3, CMP3, CRP2, ESR ####[address] MCH (RBC) [Entitic mass] 27.9 pg Normal 26.0-34.0 [facility] Comment on above: Performed By: #### H EMOG, CK3, CMP3, CRP2, ESR ####[address] [place], [place] MCHC 30.9 % Low 32.0-36.0 [facility] Comment on above: Performed By: #### H EMOG, CK3, CMP3, CRP2, ESR ####[address] [place] [address] MCV (RBC) [Entitic vol] 90.4 fL Normal 79.0-98.0 [facility] Comment on above: Performed By: #### H EMOG, CK3, CMP3, CRP2, ESR ####[address] Platelet mean volume (Bld) [Entitic vol] 7.6 fL Normal 7.4-10.4 [facility] Comment on above: Performed By: #### H EMOG, CK3, CMP3, CRP2, ESR ####[address] Platelets (Bld) [#/Vol] 1318 10*3/uL High 140-440 [facility] Comment on above: Performed By: #### H EMOG, CK3, CMP3, CRP2, ESR ####[address] RBC (Bld) [#/Vol] 3.01 10*6/uL Low 3.80-5.20 [facility] Comment on above: Performed By: #### H EMOG, CK3, CMP3, CRP2, ESR ####[address] WBC (Bld) [#/Vol] 13.1 10*3/uL High 3.6-10.7 [facility] Comment on above: Performed By: #### H EMOG, CK3, CMP3, CRP2, ESR ####[address] Sed Rateon 02-10-2021 Sed Rate 84 mm/h High 0-20 [facility] Comment on above: Performed By: #### H EMOG, CK3, CMP3, CRP2, ESR ####[address] Hemogramon 02-09-2021 Erythrocyte distribution width (RBC) [Ratio] 17.1 % High 11.5-14.5 [facility] Comment on above: Performed By: #### H EMOG ####[address] [place], [place] Hematocrit (Bld) [Volume fraction] 26.4 % Low 35.0-47.0 [facility] Comment on above: Performed By: #### H EMOG ####[id number] [place], [place] Hemoglobin (Bld) [Mass/Vol] 8.2 g/dL Low 11.7-16.0 [facility] Comment on above: Performed By: #### H EMOG ####[address] MCH (RBC) [Entitic mass] 28.1 pg Normal 26.0-34.0 [facility] Comment on above: Performed By: #### H EMOG ####[address] MCHC 31.0 % Low 32.0-36.0 [facility] Comment on above: Performed By: #### H EMOG ####[address] MCV (RBC) [Entitic vol] 90.6 fL Normal 79.0-98.0 [facility] Comment on above: Performed By: #### H EMOG ####[address] Platelet mean volume (Bld) [Entitic vol] 7.6 fL Normal 7.4-10.4 [facility] Comment on above: Performed By: #### H EMOG ####[address] Platelets (Bld) [#/Vol] 1199 10*3/uL High 140-440 [facility] Comment on above: Performed By: #### H EMOG ####[address] RBC (Bld) [#/Vol] 2.92 10*6/uL Low 3.80-5.20 [facility] Comment on above: Performed By: #### H EMOG ####[address] [place], [place] WBC (Bld) [#/Vol] 11.5 10*3/uL High 3.6-10.7 [facility] Comment on above: Performed By: #### H EMOG ####[address] Hemogramon 02-08-2021 Erythrocyte distribution width (RBC) [Ratio] 16.7 % High 11.5-14.5 [facility] Comment on above: Performed By: #### H EMOG ####[address] Hematocrit (Bld) [Volume fraction] 26.7 % Low 35.0-47.0 [facility] Comment on above: Performed By: #### H EMOG ####[address] Hemoglobin (Bld) [Mass/Vol] 8.3 g/dL Low 11.7-16.0 [facility] Comment on above: Performed By: #### H EMOG ####[address] [place], [place] MCH (RBC) [Entitic mass] 27.9 pg Normal 26.0-34.0 [facility] Comment on above: Performed By: #### H EMOG ####[address] [place], [place] MCHC 31.1 % Low 32.0-36.0 [facility] Comment on above: Performed By: #### H EMOG ####[address] MCV (RBC) [Entitic vol] 89.7 fL Normal 79.0-98.0 [facility] Comment on above: Performed By: #### H EMOG ####[address] Platelet mean volume (Bld) [Entitic vol] 7.7 fL Normal 7.4-10.4 [facility] Comment on above: Performed By: #### H EMOG ####[facility] . [place], [place] Platelets (Bld) [#/Vol] 1217 10*3/uL High 140-440 [facility] Comment on above: Performed By: #### H EMOG ####[facility] [place], [place] RBC (Bld) [#/Vol] 2.97 10*6/uL Low 3.80-5.20 [facility] Comment on above: Performed By: #### H EMOG ####[address] [place], [place] WBC (Bld) [#/Vol] 13.4 10*3/uL High 3.6-10.7 [facility] Comment on above: Performed By: #### H EMOG ####[address] [place], [place] Op Noteon 02-08-2021 Op Note Normal [facility] VL Venous Duplex US Lower Ex t Bilateralon 02-08-2021 VL Venous Duplex US Lower Ext Bilateral Normal [facility] HCG,Urine Qualon 02-07-2021 Beta HCG ( test) Ql (U) Negative Normal Negative [facility] Comment on above: Result Comment: Plea se note: Very dilute urine specimens, as indicated by a low specificgravity, may not contain sales representative wire rope levels of hCG. If is stillsuspected, a first morning urine specimen should be collected 48 hours laterand tested. is the most common reason for HCG in urine, althoughchoriocarcinoma, hydatidiform mole, and certain nontropho-blastic malignancies also result in detectable urinary HCGlevels. Sensitivity = 20mIU/mL. Performed By: #### H CGUR ####[facility] [place], [place] Hemogramon 02-07-2021 Erythrocyte distribution width (RBC) [Ratio] 16.8 % High 11.5-14.5 [facility] Comment on above: Performed By: #### H EMOG ####[address] [place], [place] Hematocrit (Bld) [Volume fraction] 26.0 % Low 35.0-47.0 [facility] Comment on above: Performed By: #### H EMOG ####[address] [place], [place] Hemoglobin (Bld) [Mass/Vol] 8.0 g/dL Low 11.7-16.0 [facility] Comment on above: Performed By: #### H EMOG ####[address] MCH (RBC) [Entitic mass] 27.8 pg Normal 26.0-34.0 [facility] Comment on above: Performed By: #### H EMOG ####[address] MCHC 30.9 % Low 32.0-36.0 [facility] Comment on above: Performed By: #### H EMOG ####[address] MCV (RBC) [Entitic vol] 90.0 fL Normal 79.0-98.0 [facility] Comment on above: Performed By: #### H EMOG ####[address] Platelet mean volume (Bld) [Entitic vol] 7.6 fL Normal 7.4-10.4 [facility] Comment on above: Performed By: #### H EMOG ####[address] Platelets (Bld) [#/Vol] 1236 10*3/uL High 140-440 [facility] Comment on above: Performed By: #### H EMOG ####[address] RBC (Bld) [#/Vol] 2.89 10*6/uL Low 3.80-5.20 [facility] Comment on above: Performed By: #### H EMOG ####[address] WBC (Bld) [#/Vol] 15.2 10*3/uL High 3.6-10.7 [facility] Comment on above: Performed By: #### H EMOG ####[address] Glucose,Bedsideon 02-06-2021 Glucose [Mass/Vol] 119 mg/dL High 70-100 [facility] Comment on above: Result Comment: Test performed by glucose meter. Results may be 10%-15% lowerthan serum/plasma values. (CLIA ID [id number]) Performed By: #### B GLU ####[address] Hemogramon 02-06-2021 Erythrocyte distribution width (RBC) [Ratio] 17.0 % High 11.5-14.5 [facility] Comment on above: Performed By: #### H EMOG ####[address] Hematocrit (Bld) [Volume fraction] 26.2 % Low 35.0-47.0 [facility] Comment on above: Performed By: #### H EMOG ####[address] [place], [place] Hemoglobin (Bld) [Mass/Vol] 8.0 g/dL Low 11.7-16.0 [facility] Comment on above: Performed By: #### H EMOG ####[address] MCH (RBC) [Entitic mass] 27.9 pg Normal 26.0-34.0 [facility] Comment on above: Performed By: #### H EMOG ####[address] MCHC 30.7 % Low 32.0-36.0 [facility] Comment on above: Performed By: #### H EMOG ####[address] MCV (RBC) [Entitic vol] 90.8 fL Normal 79.0-98.0 [facility] Comment on above: Performed By: #### H EMOG ####[address] [place], [place] Platelet mean volume (Bld) [Entitic vol] 7.6 fL Normal 7.4-10.4 [facility] Comment on above: Performed By: #### H EMOG ####[address] [place], [place] Platelets (Bld) [#/Vol] 1130 10*3/uL High 140-440 [facility] Comment on above: Performed By: #### H EMOG ####[address] [place], [place] RBC (Bld) [#/Vol] 2.88 10*6/uL Low 3.80-5.20 [facility] Comment on above: Performed By: #### H EMOG ####[address] WBC (Bld) [#/Vol] 16.9 10*3/uL High 3.6-10.7 [facility] Comment on above: Performed By: #### H EMOG ####[address] [place], [place] Glucose,Bedsideon 02-05-2021 Glucose [Mass/Vol] 132 mg/dL High 70-100 [facility] Comment on above: Result Comment: Test performed by glucose meter. Results may be 10%-15% lowerthan serum/plasma values. (CLIA ID [id number]) Performed By: #### B GLU ####[address] Hemogramon 02-05-2021 Erythrocyte distribution width (RBC) [Ratio] 16.7 % High 11.5-14.5 [facility] Comment on above: Performed By: #### H EMOG ####[address] [place], [place] Hematocrit (Bld) [Volume fraction] 25.3 % Low 35.0-47.0 [facility] Comment on above: Performed By: #### H EMOG ####[address] [place] Hemoglobin (Bld) [Mass/Vol] 8.0 g/dL Low 11.7-16.0 [facility] Comment on above: Performed By: #### H EMOG ####[address] MCH (RBC) [Entitic mass] 28.7 pg Normal 26.0-34.0 [facility] Comment on above: Performed By: #### H EMOG ####[address] MCHC 31.5 % Low 32.0-36.0 [facility] Comment on above: Performed By: #### H EMOG ####[address] MCV (RBC) [Entitic vol] 91.1 fL Normal 79.0-98.0 [facility] Comment on above: Performed By: #### H EMOG ####[address] Platelet mean volume (Bld) [Entitic vol] 8.1 fL Normal 7.4-10.4 [facility] Comment on above: Performed By: #### H EMOG ####[address] Platelets (Bld) [#/Vol] 1096 10*3/uL High 140-440 [facility] Comment on above: Performed By: #### H EMOG ####[address] RBC (Bld) [#/Vol] 2.77 10*6/uL Low 3.80-5.20 [facility] Comment on above: Performed By: #### H EMOG ####[address] WBC (Bld) [#/Vol] 16.7 10*3/uL High 3.6-10.7 [facility] Comment on above: Performed By: #### H EMOG ####[address] [place], [place] VL Venous Duplex US Lower Ex t Bilateralon 02-05-2021 VL Venous Duplex US Lower Ext Bilateral Normal [facility] Hemogramon 02-04-2021 Erythrocyte distribution width (RBC) [Ratio] 16.8 % High 11.5-14.5 [facility] Comment on above: Performed By: #### H EMOG ####[address] [place], [place] Hematocrit (Bld) [Volume fraction] 24.8 % Low 35.0-47.0 [facility] Comment on above: Performed By: #### H EMOG ####[address] [place], [place] Hemoglobin (Bld) [Mass/Vol] 7.7 g/dL Low 11.7-16.0 [facility] Comment on above: Performed By: #### H EMOG ####[address] [place] MCH (RBC) [Entitic mass] 28.3 pg Normal 26.0-34.0 [facility] Comment on above: Performed By: #### H EMOG ####[address] [place] MCHC 30.8 % Low 32.0-36.0 [facility] Comment on above: Performed By: #### H EMOG ####[address] [place] MCV (RBC) [Entitic vol] 91.8 fL Normal 79.0-98.0 [facility] Comment on above: Performed By: #### H EMOG ####[address] Platelet mean volume (Bld) [Entitic vol] 8.1 fL Normal 7.4-10.4 [facility] Comment on above: Performed By: #### H EMOG ####[facility] [address] [place], [place] Platelets (Bld) [#/Vol] 978 10*3/uL High 140-440 [facility] Comment on above: Performed By: #### H EMOG ####[address] [place], [place] RBC (Bld) [#/Vol] 2.71 10*6/uL Low 3.80-5.20 [facility] Comment on above: Performed By: #### H EMOG ####[address] . [place], [place] WBC (Bld) [#/Vol] 17.4 10*3/uL High 3.6-10.7 [facility] Comment on above: Performed By: #### H EMOG ####[address] [place], [place] CULTURE ANAEROBEon CULTURE ANAEROBE CULTURE ANAEROBE --> Status: F No growth of anaerobes at 5 days. Normal [facility] Comment on above: Performed By: #### C XTIS ####[facility] [place] [address]Euoqb [facility] [address] [place], [place] #### C/FELY ####[address] [place], [place] CULTURE ANAEROBE CULTURE ANAEROBE --> Status: F No growth of anaerobes at 5 days. Normal [facility] Comment on above: Performed By: #### C XTIS, C/FELY ####[address] [place], [place] Hemogramon 02-03-2021 Erythrocyte distribution width (RBC) [Ratio] 16.2 % High 11.5-14.5 [facility] Comment on above: Performed By: #### H EMOG ####[address] [place], [place] Hematocrit (Bld) [Volume fraction] 26.0 % Low 35.0-47.0 [facility] Comment on above: Performed By: #### H EMOG ####[address] [place], [place] Hemoglobin (Bld) [Mass/Vol] 8.0 g/dL Low 11.7-16.0 [facility] Comment on above: Performed By: #### H EMOG ####[address] [place], [place] MCH (RBC) [Entitic mass] 27.9 pg Normal 26.0-34.0 [facility] Comment on above: Performed By: #### H EMOG ####[address] [place] MCHC 30.8 % Low 32.0-36.0 [facility] Comment on above: Performed By: #### H EMOG ####[address] MCV (RBC) [Entitic vol] 90.5 fL Normal 79.0-98.0 [facility] Comment on above: Performed By: #### H EMOG ####[address] Platelet mean volume (Bld) [Entitic vol] 8.1 fL Normal 7.4-10.4 [facility] Comment on above: Performed By: #### H EMOG ####[address] [place], [place] Platelets (Bld) [#/Vol] 956 10*3/uL High 140-440 [facility] Comment on above: Performed By: #### H EMOG ####[address] RBC (Bld) [#/Vol] 2.88 10*6/uL Low 3.80-5.20 [facility] Comment on above: Performed By: #### H EMOG ####[address] WBC (Bld) [#/Vol] 17.4 10*3/uL High 3.6-10.7 [facility] Comment on above: Performed By: #### H EMOG ####[address] Hemogramon 02-02-2021 Erythrocyte distribution width (RBC) [Ratio] 15.9 % High 11.5-14.5 [facility] Comment on above: Performed By: #### H EMOG ####[address] Hematocrit (Bld) [Volume fraction] 25.3 % Low 35.0-47.0 [facility] Comment on above: Performed By: #### H EMOG ####[address] Hemoglobin (Bld) [Mass/Vol] 8.0 g/dL Low 11.7-16.0 [facility] Comment on above: Performed By: #### H EMOG ####[address] MCH (RBC) [Entitic mass] 28.8 pg Normal 26.0-34.0 [facility] Comment on above: Performed By: #### H EMOG ####[address] MCHC 31.7 % Low 32.0-36.0 [facility] Comment on above: Performed By: #### H EMOG ####[address] MCV (RBC) [Entitic vol] 91.0 fL Normal 79.0-98.0 [facility] Comment on above: Performed By: #### H EMOG ####[address] Platelet mean volume (Bld) [Entitic vol] 8.2 fL Normal 7.4-10.4 [facility] Comment on above: Performed By: #### H EMOG ####[address] Platelets (Bld) [#/Vol] 873 10*3/uL High 140-440 [facility] Comment on above: Performed By: #### H EMOG ####[address] [place], [place] RBC (Bld) [#/Vol] 2.78 10*6/uL Low 3.80-5.20 [facility] Comment on above: Performed By: #### H EMOG ####[address] WBC (Bld) [#/Vol] 16.3 10*3/uL High 3.6-10.7 [facility] Comment on above: Performed By: #### H EMOG ####[address] CULTURE AND STAIN - TISSUEon 02-01-2021 CULTURE AND STAIN - TISSUE Normal [facility] Comment on above: Performed By: #### C XTIS, C/FELY ####[address] CULTURE AND STAIN - TISSUE Normal [facility] Comment on above: Performed By: #### C XTIS ####[address] [place] [address] [address] [place], [place] #### C/FELY ####[address] Glucose,Bedsideon 02-01-2021 Glucose [Mass/Vol] 140 mg/dL High 70-100 [facility] Comment on above: Result Comment: Test performed by glucose meter. Results may be 10%-15% lowerthan serum/plasma values. (CLIA ID [id number]) Performed By: #### B GLU ####[address] Hemogramon 02-01-2021 Erythrocyte distribution width (RBC) [Ratio] 15.7 % High 11.5-14.5 [facility] Comment on above: Performed By: #### H EMOG ####[address] [place], [place] Hematocrit (Bld) [Volume fraction] 24.8 % Low 35.0-47.0 [facility] Comment on above: Performed By: #### H EMOG ####[address] [place], [place] Hemoglobin (Bld) [Mass/Vol] 7.7 g/dL Low 11.7-16.0 [facility] Comment on above: Performed By: #### H EMOG ####[address] MCH (RBC) [Entitic mass] 28.1 pg Normal 26.0-34.0 [facility] Comment on above: Performed By: #### H EMOG ####[address] MCHC 31.1 % Low 32.0-36.0 [facility] Comment on above: Performed By: #### H EMOG ####[address] MCV (RBC) [Entitic vol] 90.5 fL Normal 79.0-98.0 [facility] Comment on above: Performed By: #### H EMOG ####[address] Platelet mean volume (Bld) [Entitic vol] 8.8 fL Normal 7.4-10.4 [facility] Comment on above: Performed By: #### H EMOG ####[address] Platelets (Bld) [#/Vol] 819 10*3/uL High 140-440 [facility] Comment on above: Performed By: #### H EMOG ####[address] RBC (Bld) [#/Vol] 2.74 10*6/uL Low 3.80-5.20 [facility] Comment on above: Performed By: #### H EMOG ####[address] [place], [place] WBC (Bld) [#/Vol] 13.6 10*3/uL High 3.6-10.7 [facility] Comment on above: Performed By: #### H EMOG ####[address] [place], [place] Hepatitis C RNA Quanton 01-17 Hep C RNA Quant (log) 7.17 {Log_IU} Abnormal <1.18 [facility] Comment on above: Performed By: #### C K3, HCVQ ####[address] [place], [place] Hepatitis C RNA Quant [id number] [IU]/mL Abnormal <15 [facility] Comment on above: Performed By: #### C K3, HCVQ ####[address] [place], [place] Leukodepleted Red Cellson Leukodepleted Red Cells Normal [facility] Comment on above: Performed By: #### T SGL ####[facility]#### [facility] ####[address] [address] VL Venous Duplex US Lower Ex t Bilateralon 02-01-2021 VL Venous Duplex US Lower Ext Bilateral Normal [facility] CKon 01-31-2021 CK [Catalytic activity/Vol] 91 U/L Normal 30-170 [facility] Comment on above: Performed By: #### C K3, HCVQ ####[address] [place], [place] CR Chest Portableon 02-01-20 21 CR Chest Portable Normal [facility] Hem[facility] 01-31-2021 Erythrocyte distribution width (RBC) [Ratio] 16.0 % High 11.5-14.5 [facility] Comment on above: Performed By: #### H EMOG ####[address] [place], [place] Hematocrit (Bld) [Volume fraction] 23.9 % Low 35.0-47.0 [facility] Comment on above: Performed By: #### H EMOG ####[address] [place], [place] Hemoglobin (Bld) [Mass/Vol] 7.3 g/dL Low 11.7-16.0 [facility] Comment on above: Performed By: #### H EMOG ####[address] MCH (RBC) [Entitic mass] 27.7 pg Normal 26.0-34.0 [facility] Comment on above: Performed By: #### H EMOG ####[address] MCHC 30.6 % Low 32.0-36.0 [facility] Comment on above: Performed By: #### H EMOG ####[address] MCV (RBC) [Entitic vol] 90.4 fL Normal 79.0-98.0 [facility] Comment on above: Performed By: #### H EMOG ####[address] Platelet mean volume (Bld) [Entitic vol] 8.9 fL Normal 7.4-10.4 [facility] Comment on above: Performed By: #### H EMOG ####[address] Platelets (Bld) [#/Vol] 765 10*3/uL High 140-440 [facility] Comment on above: Performed By: #### H EMOG ####[address] RBC (Bld) [#/Vol] 2.64 10*6/uL Low 3.80-5.20 [facility] Comment on above: Performed By: #### H EMOG ####[address] WBC (Bld) [#/Vol] 14.9 10*3/uL High 3.6-10.7 [facility] Comment on above: Performed By: #### H EMOG ####[facility] [id number] [place], [place] Basic Metabolic Panelon 01-17 Calcium [Mass/Vol] 9.7 mg/dL Normal 8.4-10.4 [facility] Comment on above: Performed By: #### H DAYLIN BMP3M ####[facility] [id number] [place], [place] Glucose [Mass/Vol] 109 mg/dL High 70-100 [facility] Comment on above: Performed By: #### H DAYLIN BMP3M ####[facility] [id number] [place], [place] Anion gap [Moles/Vol] 14 mmol/L High 3-13 [facility] Comment on above: Performed By: #### H DAYLIN BMP3M ####[facility] [id number] [place], [place] CO2 [Moles/Vol] 26 mmol/L Normal 22-30 [facility] Comment on above: Performed By: #### H DAYLIN BMP3M ####[facility] [id number] [place], [place] Creatinine [Mass/Vol] 0.69 mg/dL Normal 0.52-1.25 [facility] Comment on above: Performed By: #### H EMOJoi BMP3M ####[facility] [id number] [place], [place] eGFR OTHER > 90.0 Normal >60 [facility] Comment on above: Result Comment: KDIG O guidelines provide the following GFR categories:Stage GFR(ml/min/1.73 m2) TermsG1 >=90 Normal or highG2 60-89 Mildly decreased*G3a 45-59 Mildly to moderately shtohivwlU3g 30-44 Moderately to severely decreasedG4 15-29 Severely [...] renal tubular creatinine secretion. Performed By: #### ZAHC WILHELM3M ####[address] [place], [place] GFR/1.73 sq M.predicted among blacks MDRD (S/P/Bld) [Vol rate/Area] mL/min/{1.73_m2} Normal >60 [facility] Comment on above: Performed By: #### ZACH WILHELM3M ####[address] Urea nitrogen [Mass/Vol] 9 mg/dL Normal 9-20 [facility] Comment on above: Performed By: #### ZACH WILHELM3M ####[address] Chloride [Moles/Vol] 98 mmol/L Normal 98-107 [facility] Comment on above: Performed By: #### ZACH WILHELM3M ####[address] Potassium [Moles/Vol] 4.5 mmol/L Normal 3.5-5.1 [facility] Comment on above: Performed By: #### ZACH WILHELM3M ####[address] [place], [place] Sodium [Moles/Vol] 139 mmol/L Normal 135-145 [facility] Comment on above: Performed By: #### ZACH WILHELM3M ####[address] CR Chest Portableon 01-31-20 21 CR Chest Portable Normal [facility] CULT/STAIN - AEROBIC AND FELY EROBICon 01-30-2021 CULT/STAIN - AEROBIC AND ANAEROBIC Normal [facility] Comment on above: Performed By: #### S /GRM ####[address] #### CXAAN ####[address] [address] CULTURE MYCOBACTERIAon 01-30 CULTURE MYCOBACTERIA CULTURE MYCOBACTERI A --> Status: F No acid-fast bacilli isolated after 6 weeks incubation. STAIN ACID-FAST --> Status: F No acid-fast bacilli seen in smear. - Method: Fluorescent Stain - Method: Fluorescent Stain Normal [facility] Comment on above: Performed By: #### C /TB ####[address] Hemogramon 01-30-2021 Erythrocyte distribution width (RBC) [Ratio] 15.9 % High 11.5-14.5 [facility] Comment on above: Performed By: #### H ZACH MAO3Ward ####[address] Hematocrit (Bld) [Volume fraction] 32.0 % Low 35.0-47.0 [facility] Comment on above: Performed By: #### H ZACH MAO3Ward ####[address] [place], [place] Hemoglobin (Bld) [Mass/Vol] 10.0 g/dL Low 11.7-16.0 [facility] Comment on above: Performed By: #### H ZACH MAO3Ward ####[address] MCH (RBC) [Entitic mass] 28.3 pg Normal 26.0-34.0 [facility] Comment on above: Performed By: #### H ZACH MAO3Ward ####[address] [place] MCHC 31.3 % Low 32.0-36.0 [facility] Comment on above: Performed By: #### JACOBY WILHELM ####[address] MCV (RBC) [Entitic vol] 90.3 fL Normal 79.0-98.0 [facility] Comment on above: Performed By: #### ZACH WILHELM3Ward ####[address] [place], [place] Platelet mean volume (Bld) [Entitic vol] 8.9 fL Normal 7.4-10.4 [facility] Comment on above: Performed By: #### ZACH WILHELM3M ####[address] Platelets (Bld) [#/Vol] 862 10*3/uL High 140-440 [facility] Comment on above: Performed By: #### ZACH WILHELM3M ####[address] RBC (Bld) [#/Vol] 3.54 10*6/uL Low 3.80-5.20 [facility] Comment on above: Performed By: #### ZACH WILHELM3M ####[address] WBC (Bld) [#/Vol] 21.3 10*3/uL High 3.6-10.7 [facility] Comment on above: Performed By: #### ZACH WILHELM3M ####[address] Hepatitis C RNA Quanton 01-17 Note Interpretation Normal [facility] Comment on above: Result Comment: The linear detection limit for this assay is 15 HCV IU/ml.A result of <15 IU (<1.18 log IU) indicates that HCVwas detected, but at a level below the linear cutoff.A result of None Detected means that no HCV RNA was detected. Performed By: #### C K3, HCVQ ####[address] STAIN ACID-FASTon 01-30-2021 STAIN ACID-FAST STAIN ACID-FAST --> Status: F No acid-fast bacilli seen in smear. - Method: Fluorescent Stain - Method: Fluorescent Stain Normal [facility] Comment on above: Performed By: #### C /TB, S/TB ####[address] [place], [place] STAIN FUNGUSon 01-30-2021 STAIN FUNGUS STAIN FUNGUS --> Sta tus: F No fungal elements seen. - Method: Direct Exam by Calcofluor Stain - Method: Direct Exam by Calcofluor Stain Normal [facility] Comment on above: Performed By: #### S /FUN, C/FUN ####[address] [place], [place] VL Venous Duplex US Lower Ex t Bilateralon 01-30-2021 VL Venous Duplex US Lower Ext Bilateral Normal [facility] Vancomycin Troughon 01-31-20 Vancomycin Trough 8.7 ug/mL Low 15.0-20.0 [facility] Comment on above: Result Comment: . Performed By: #### V ANCT ####[address] [place], [place] Basic Metabolic Panelon 01-17 Calcium [Mass/Vol] 9.6 mg/dL Normal 8.4-10.4 [facility] Comment on above: Performed By: #### B MP3M, HEMOG ####[address] [place], [place] Glucose [Mass/Vol] 92 mg/dL Normal 70-100 [facility] Comment on above: Performed By: #### B MP3M, HEMOG ####[address] [place], [place] Anion gap [Moles/Vol] 5 mmol/L Normal 3-13 [facility] Comment on above: Performed By: #### B MP3M, HEMOG ####[facility] [id number] [place], [place] CO2 [Moles/Vol] 29 mmol/L Normal 22-30 [facility] Comment on above: Performed By: #### B MP3M, HEMOG ####[address] [place], [place] Creatinine [Mass/Vol] 0.58 mg/dL Normal 0.52-1.25 [facility] Comment on above: Performed By: #### Jacek ALBRIGHT3Ward HEMOG ####[address] [place], [place] eGFR OTHER > 90.0 Normal >60 [facility] Comment on above: Result Comment: KDIG O guidelines provide the following GFR categories:Stage GFR(ml/min/1.73 m2) TermsG1 >=90 Normal or highG2 60-89 Mildly decreased*G3a 45-59 Mildly to moderately bnbgcuocbK7z 30-44 Moderately to severely decreasedG4 15-29 Severely [...] secretion. Performed By: #### Jacek VILLANUEVA HEMOG ####[address] [place], [place] GFR/1.73 sq M.predicted among blacks MDRD (S/P/Bld) [Vol rate/Area] mL/min/{1.73_m2} Normal >60 [facility] Comment on above: Performed By: #### Jacek VILLANUEVA HEMOG ####[address] [place], [place] Urea nitrogen [Mass/Vol] 11 mg/dL Normal 9-20 [facility] Comment on above: Performed By: #### Jacek ALBRIGHT3Ward HEMOG ####[address] [place], [place] Chloride [Moles/Vol] 100 mmol/L Normal 98-107 [facility] Comment on above: Performed By: #### Jacek ALBRIGHT3M, HEMOG ####[facility] Potassium [Moles/Vol] 5.2 mmol/L High 3.5-5.1 [facility] Comment on above: Performed By: #### B MP3M, HEMOG ####[facility] Sodium [Moles/Vol] 134 mmol/L Low 135-145 [facility] Comment on above: Performed By: #### B MP3M, HEMOG ####[facility] Comp Metabolic Panelon 01-29 ALT [Catalytic activity/Vol] 17 U/L Normal 0-34 [facility] Comment on above: Result Comment: The ALT test is performed by an updated assay method.Please note that the reference intervals have beenchanged and are now sex specific. Performed By: #### C MP3, HEMOG ####[address] [facility] Calcium [Mass/Vol] 8.4 mg/dL Normal 8.4-10.4 [facility] Comment on above: Performed By: #### C MP3, HEMOG ####[address] [facility] [facility] [address] Glucose [Mass/Vol] 151 mg/dL High 70-100 [facility] Comment on above: Performed By: #### C MP3, HEMOG ####[address] [facility] [facility] [address] [address] ALP [Catalytic activity/Vol] 251 U/L High 38-126 [facility] Comment on above: Performed By: #### C MP3, HEMOG ####[facility] Anion gap [Moles/Vol] 9 mmol/L Normal 3-13 [facility] Comment on above: Performed By: #### C MP3, HEMOG ####[address] [facility] [facility] [address] AST [Catalytic activity/Vol] 31 U/L Normal 15-46 [facility] Comment on above: Performed By: #### C MP3, HEMOG ####[facility] [place], [place] Bilirubin [Mass/Vol] 0.4 mg/dL Normal 0.2-1.3 [facility] Comment on above: Performed By: #### C MP3, HEMOG ####[facility] [place], [place] CO2 [Moles/Vol] 25 mmol/L Normal 22-30 [facility] Comment on above: Performed By: #### C MP3, HEMOG ####[address] [place], [place] Creatinine [Mass/Vol] 0.61 mg/dL Normal 0.52-1.25 [facility] Comment on above: Performed By: #### C MP3, HEMOG ####[address] [place], [place] eGFR OTHER > 90.0 Normal >60 [facility] Comment on above: Result Comment: KDIG O guidelines provide the following GFR categories:Stage GFR(ml/min/1.73 m2) TermsG1 >=90 Normal or highG2 60-89 Mildly decreased*G3a 45-59 Mildly to moderately jzswctnctE9x 30-44 Moderately to severely decreasedG4 15-29 Severely [...] secretion. Performed By: #### C MP3, HEMOG ####[facility] [place], [place] GFR/1.73 sq M.predicted among blacks MDRD (S/P/Bld) [Vol rate/Area] mL/min/{1.73_m2} Normal >60 [facility] Comment on above: Performed By: #### C MP3, HEMOG ####[address] [place], [place] Protein [Mass/Vol] 5.9 g/dL Low 6.3-8.2 [facility] Comment on above: Performed By: #### C MP3, HEMOG ####[address] [place], [place] Urea nitrogen [Mass/Vol] 10 mg/dL Normal 9-20 [facility] Comment on above: Performed By: #### C MP3, HEMOG ####[address] [place], [place] Potassium [Moles/Vol] 4.6 mmol/L Normal 3.5-5.1 [facility] Comment on above: Performed By: #### C MP3, HEMOG ####[address] [place], [place] Sodium [Moles/Vol] 138 mmol/L Normal 135-145 [facility] Comment on above: Performed By: #### C MP3, HEMOG ####[address] [place], [place] Albumin [Mass/Vol] 3.3 g/dL Low 3.5-5.0 [facility] Comment on above: Performed By: #### C MP3, HEMOG ####[address] [place], [place] Chloride [Moles/Vol] 104 mmol/L Normal 98-107 [facility] Comment on above: Performed By: #### C MP3, HEMOG ####[address] [place], [place] Hemogramon 01-29-2021 Erythrocyte distribution width (RBC) [Ratio] 15.7 % High 11.5-14.5 [facility] Comment on above: Performed By: #### C MP3, HEMOG ####[address] [place], [place] Hematocrit (Bld) [Volume fraction] 28.1 % Low 35.0-47.0 [facility] Comment on above: Performed By: #### C MP3, HEMOG ####[address] [place], [place] Hemoglobin (Bld) [Mass/Vol] 9.1 g/dL Low 11.7-16.0 [facility] Comment on above: Performed By: #### C MP3, HEMOG ####[address] [place], [place] MCH (RBC) [Entitic mass] 29.2 pg Normal 26.0-34.0 [facility] Comment on above: Performed By: #### C MP3, HEMOG ####[address] [place], [place] MCHC 32.2 % Normal 32.0-36.0 [facility] Comment on above: Performed By: #### C MP3, HEMOG ####[address] [place] MCV (RBC) [Entitic vol] 90.9 fL Normal 79.0-98.0 [facility] Comment on above: Performed By: #### C MP3, HEMOG ####[address] [place], [place] Platelet mean volume (Bld) [Entitic vol] 8.6 fL Normal 7.4-10.4 [facility] Comment on above: Performed By: #### C MP3, HEMOG ####[address] [place], [place] Platelets (Bld) [#/Vol] 781 10*3/uL High 140-440 [facility] Comment on above: Performed By: #### C MP3, HEMOG ####[address] [place], [place] RBC (Bld) [#/Vol] 3.10 10*6/uL Low 3.80-5.20 [facility] Comment on above: Performed By: #### C MP3, HEMOG ####[address] [place], [place] WBC (Bld) [#/Vol] 20.4 10*3/uL High 3.6-10.7 [facility] Comment on above: Performed By: #### C MP3, HEMOG ####[address] [place], [place] Erythrocyte distribution width (RBC) [Ratio] 16.0 % High 11.5-14.5 [facility] Comment on above: Performed By: #### B MP3M, HEMOG ####[address] [place], [place] Hematocrit (Bld) [Volume fraction] 34.5 % Low 35.0-47.0 [facility] Comment on above: Performed By: #### B MP3M, HEMOG ####[address] [place], [place] Hemoglobin (Bld) [Mass/Vol] 10.8 g/dL Low 11.7-16.0 [facility] Comment on above: Performed By: #### B MP3M, HEMOG ####[facility] [place], [place] MCH (RBC) [Entitic mass] 28.5 pg Normal 26.0-34.0 [facility] Comment on above: Performed By: #### B MP3M, HEMOG ####[address] [place] MCHC 31.3 % Low 32.0-36.0 [facility] Comment on above: Performed By: #### B MP3M, HEMOG ####[address] [place] MCV (RBC) [Entitic vol] 91.2 fL Normal 79.0-98.0 [facility] Comment on above: Performed By: #### B MP3M, HEMOG ####[address] [place], [place] Platelet mean volume (Bld) [Entitic vol] 8.4 fL Normal 7.4-10.4 [facility] Comment on above: Performed By: #### B NATALEE3Ward, HEMOG ####[address] [place], [place] Platelets (Bld) [#/Vol] 1091 10*3/uL High 140-440 [facility] Comment on above: Performed By: #### B NATALEE3Ward, HEMOG ####[address] [place], [place] RBC (Bld) [#/Vol] 3.79 10*6/uL Low 3.80-5.20 [facility] Comment on above: Performed By: #### Jacek VILLANUEVA HEMOG ####[address] WBC (Bld) [#/Vol] 18.0 10*3/uL High 3.6-10.7 [facility] Comment on above: Performed By: #### Jacek ALBRIGHT3Ward, HEMOG ####[address] [place], [place] Op Noteon 01-29-2021 Op Note Normal [facility] Surgical Pathologyon 021 Surgical Pathology Normal [facility] TS GELon 01-29-2021 TS GEL ABO Group: A Rh, Gel: POS Antibody Screen Gel: NEG Normal [facility] Comment on above: Performed By: #### T SGL ####[facility]#### LRC ####[address] [address] Basic Metabolic Panelon 01-17 Anion gap [Moles/Vol] 11 mmol/L Normal -13 [facility] Comment on above: Performed By: #### B NATALEE3Ward, HEMOG ####[address] [place], [place] Calcium [Mass/Vol] 10.0 mg/dL Normal 8.4-10.4 [facility] Comment on above: Performed By: #### B NATALEE3Ward, HEMOG ####[address] [place], [place] CO2 [Moles/Vol] 28 mmol/L Normal 22-30 [facility] Comment on above: Performed By: #### B MP3M, HEMOG ####[facility] [place], [place] Glucose [Mass/Vol] 82 mg/dL Normal 70-100 [facility] Comment on above: Performed By: #### B MP3M, HEMOG ####[address] [place], [place] Urea nitrogen [Mass/Vol] 13 mg/dL Normal 9-20 [facility] Comment on above: Performed By: #### B MP3M, HEMOG ####[address] [place], [place] Creatinine [Mass/Vol] 0.55 mg/dL Normal 0.52-1.25 [facility] Comment on above: Performed By: #### B MP3M, HEMOG ####[address] [place], [place] eGFR OTHER > 90.0 Normal >60 [facility] Comment on above: Result Comment: KDIG O guidelines provide the following GFR categories:Stage GFR(ml/min/1.73 m2) TermsG1 >=90 Normal or highG2 60-89 Mildly decreased*G3a 45-59 Mildly to moderately reczuwydyO1n 30-44 Moderately to severely decreasedG4 15-29 Severely [...] secretion. Performed By: #### B MP3M, HEMOG ####[address] [place] [address] GFR/1.73 sq M.predicted among blacks MDRD (S/P/Bld) [Vol rate/Area] mL/min/{1.73_m2} Normal >60 [facility] Comment on above: Performed By: #### Jacek ALBRIGHT3Ward, HEMOG ####[facility] [id number] [place], [place] Chloride [Moles/Vol] 97 mmol/L Low 98-107 [facility] Comment on above: Performed By: #### B MP3M, HEMOG ####[address] [place], [place] Potassium [Moles/Vol] 4.9 mmol/L Normal 3.5-5.1 [facility] Comment on above: Result Comment: Slig htly hemolysed, interpret with caution. Performed By: #### B NATALEE3M, HEMOG ####[address] [place], [place] Sodium [Moles/Vol] 137 mmol/L Normal 135-145 [facility] Comment on above: Performed By: #### B MP3M, HEMOG ####[address] [place], [place] CR Chest Portableon 01-29-20 21 CR Chest Portable Normal [facility] CT 3D Reconstructionon 01-28 CT 3D Reconstruction Normal [facility] CT Maxillofacial w/o Contras ton 01-28-2021 CT Maxillofacial w/o Contrast Normal [facility] Hemogramon 01-28-2021 Erythrocyte distribution width (RBC) [Ratio] 16.1 % High 11.5-14.5 [facility] Comment on above: Performed By: #### Jacek MP3M, HEMOG ####[facility] [id number] [place], [place] Hematocrit (Bld) [Volume fraction] 35.3 % Normal 35.0-47.0 [facility] Comment on above: Performed By: #### Jacek MP3M, HEMOG ####[facility] [id number] [place], [place] Hemoglobin (Bld) [Mass/Vol] 10.9 g/dL Low 11.7-16.0 [facility] Comment on above: Performed By: #### B NATALEE3Ward, HEMOG ####[address] [place], [place] MCH (RBC) [Entitic mass] 28.0 pg Normal 26.0-34.0 [facility] Comment on above: Performed By: #### B MP3Ward, HEMOG ####[address] MCHC 30.8 % Low 32.0-36.0 [facility] Comment on above: Performed By: #### B NATALEE3Ward, HEMOG ####[address] [place] MCV (RBC) [Entitic vol] 90.9 fL Normal 79.0-98.0 [facility] Comment on above: Performed By: #### Jacek ALBRIGHT3Ward, HEMOG ####[address] Platelet mean volume (Bld) [Entitic vol] 8.8 fL Normal 7.4-10.4 [facility] Comment on above: Performed By: #### Jacek ALBRIGHT3Ward, HEMOG ####[address] [place], [place] Platelets (Bld) [#/Vol] 996 10*3/uL High 140-440 [facility] Comment on above: Performed By: #### B MP3Ward, HEMOG ####[address] RBC (Bld) [#/Vol] 3.89 10*6/uL Normal 3.80-5.20 [facility] Comment on above: Performed By: #### B MP3Ward, HEMOG ####[address] WBC (Bld) [#/Vol] 15.6 10*3/uL High 3.6-10.7 [facility] Comment on above: Performed By: #### B MP3Ward, HEMOG ####[address] [place], [place] APTTon 01-27-2021 aPTT Coag (Bld) [Time] 20.8 s Normal 20.0-30.5 [facility] Comment on above: Result Comment: NOTE : The therapeutic time for Heparin anticoagulation,based on Xa activity inhibition, is an APTT of 46-80seconds. Performed By: #### A PTT ####[address] Basic Metabolic Panelon 01-17 Anion gap [Moles/Vol] 15 mmol/L High 3-13 [facility] Comment on above: Performed By: #### B MP3M ####[address] [place], [place] Calcium [Mass/Vol] 9.3 mg/dL Normal 8.4-10.4 [facility] Comment on above: Performed By: #### B MP3M ####[address] CO2 [Moles/Vol] 28 mmol/L Normal 22-30 [facility] Comment on above: Performed By: #### B MP3M ####[address] [place], [place] Creatinine [Mass/Vol] 0.56 mg/dL Normal 0.52-1.25 [facility] Comment on above: Performed By: #### B MP3M ####[address] eGFR OTHER > 90.0 Normal >60 [facility] Comment on above: Result Comment: KDIG O guidelines provide the following GFR categories:Stage GFR(ml/min/1.73 m2) TermsG1 >=90 Normal or highG2 60-89 Mildly decreased*G3a 45-59 Mildly to moderately oyhqjoephC5p 30-44 Moderately to severely decreasedG4 15-29 Severely [...] creatinine secretion. Performed By: #### B MP3M ####[address] [place], [place] GFR/1.73 sq M.predicted among blacks MDRD (S/P/Bld) [Vol rate/Area] mL/min/{1.73_m2} Normal >60 [facility] Comment on above: Performed By: #### B MP3M ####[address] [place], [place] Glucose [Mass/Vol] 89 mg/dL Normal 70-100 [facility] Comment on above: Performed By: #### B MP3M ####[address] [place], [place] Urea nitrogen [Mass/Vol] 10 mg/dL Normal 9-20 [facility] Comment on above: Performed By: #### B MP3M ####[address] [place], [place] Chloride [Moles/Vol] 95 mmol/L Low 98-107 [facility] Comment on above: Performed By: #### B MP3M ####[address] [place], [place] Potassium [Moles/Vol] 4.6 mmol/L Normal 3.5-5.1 [facility] Comment on above: Result Comment: Slig htly hemolysed, interpret with caution. Performed By: #### B MP3M ####[address] [place], [place] Sodium [Moles/Vol] 138 mmol/L Normal 135-145 [facility] Comment on above: Performed By: #### B MP3M ####[address] [place], [place] CR Forearm 2 Views Lefton CR Forearm 2 Views Left Normal [facility] CR Hand Complete 3+ Views Le fton 01-27-2021 CR Hand Complete 3+ Views Left Normal [facility] CR Knee 3 Views Bilateralon 01-27-2021 CR Knee 3 Views Bilateral Normal [facility] CR Pelvis Complete Minimum 3 Viewson 01-27-2021 CR Pelvis Complete Minimum 3 Views Normal [facility] CR Shoulder 2+ Views Lefton 01-27-2021 CR Shoulder 2+ Views Left Normal [facility] CR Tibia/Fibula 2 Views Righ ton 01-27-2021 CR Tibia/Fibula 2 Views Right Normal [facility] Hemogramon 01-27-2021 Erythrocyte distribution width (RBC) [Ratio] 16.1 % High 11.5-14.5 [facility] Comment on above: Performed By: #### H EMOG ####[address] [place], [place] Hematocrit (Bld) [Volume fraction] 37.0 % Normal 35.0-47.0 [facility] Comment on above: Performed By: #### H EMOG ####[address] [place], [place] Hemoglobin (Bld) [Mass/Vol] 11.6 g/dL Low 11.7-16.0 [facility] Comment on above: Performed By: #### H EMOG ####[address] [place], [place] MCH (RBC) [Entitic mass] 28.2 pg Normal 26.0-34.0 [facility] Comment on above: Performed By: #### H EMOG ####[address] [place] MCHC 31.5 % Low 32.0-36.0 [facility] Comment on above: Performed By: #### H EMOG ####[address] [place] MCV (RBC) [Entitic vol] 89.6 fL Normal 79.0-98.0 [facility] Comment on above: Performed By: #### H EMOG ####[address] [place], [place] Platelet mean volume (Bld) [Entitic vol] 8.7 fL Normal 7.4-10.4 [facility] Comment on above: Performed By: #### H EMOG ####[address] [place], [place] Platelets (Bld) [#/Vol] 1070 10*3/uL High 140-440 [facility] Comment on above: Performed By: #### H EMOG ####[address] . [place], [place] RBC (Bld) [#/Vol] 4.13 10*6/uL Normal 3.80-5.20 [facility] Comment on above: Performed By: #### H EMOG ####[address] [place], [place] WBC (Bld) [#/Vol] 18.5 10*3/uL High 3.6-10.7 [facility] Comment on above: Performed By: #### H EMOG ####[address] [place], [place] STAIN GRAMon 01-27-2021 STAIN GRAM STAIN GRAM --> Statu s: F Many polymorphonuclear cells/lpf. Few gram positive cocci in clusters. Few gram positive cocci in clusters. Normal [facility] Comment on above: Performed By: #### S /GRM ####[address] [place], [place] #### CXAAN ####[address] [place] [address] [place], [place] VL Venous Duplex US Lower Ex t Bilateralon 01-27-2021 VL Venous Duplex US Lower Ext Bilateral Normal [facility] CT Head or Brain w/o Contras ton 01-08-2021 CT Head or Brain w/o Contrast Normal [facility] CULTURE BLOODon 01-03-2021 Microscopic examination of blood, culture CULTURE BLOOD --> Status: F No growth at 5 days. Normal [facility] Comment on above: Performed By: #### C /BLD ####[address] [place], [place] CULT./ST. RESPIRATORYon 12-18 CULT./ST. RESPIRATORY Normal [facility] Comment on above: Performed By: #### S /GRM ####[address] [place], [place] #### CS/RE ####[address] [phone] [address] [place], [place] CULTURE BLOOD (Two)on 2020 Microscopic examination of blood, culture CULTURE BLOOD (Two) --> Status: F No growth at 5 days. Normal [facility] Comment on above: Performed By: #### C /BLT ####[address] Basic Metabolic Panelon 12-18 Calcium [Mass/Vol] 7.7 mg/dL Low 8.4-10.4 [facility] Comment on above: Performed By: #### H CURLY BMP3 ####[facility] [place], [place] Anion gap [Moles/Vol] 0 mmol/L Low - [facility] Comment on above: Performed By: #### H CURLY BMP3 ####[address] [place], [place] CO2 [Moles/Vol] 28 mmol/L Normal 22-30 [facility] Comment on above: Performed By: #### H CURLY BMP3 ####[address] [place], [place] Creatinine [Mass/Vol] 0.48 mg/dL Low 0.52-1.25 [facility] Comment on above: Performed By: #### H CURLY BMP3 ####[address] eGFR OTHER > 90.0 Normal >60 [facility] Comment on above: Result Comment: KDIG O guidelines provide the following GFR categories:Stage GFR(ml/min/1.73 m2) TermsG1 >=90 Normal or highG2 60-89 Mildly decreased*G3a 45-59 Mildly to moderately hmgqchkwmN9s 30-44 Moderately to severely decreasedG4 15-29 Severely [...] secretion. Performed By: #### H ZACH RAWLS3 ####[facility] [id number] [place], [place] GFR/1.73 sq M.predicted among blacks MDRD (S/P/Bld) [Vol rate/Area] mL/min/{1.73_m2} Normal >60 [facility] Comment on above: Performed By: #### H ZACH RAWLS3 ####[facility] [id number] [place], [place] Glucose [Mass/Vol] 102 mg/dL High 70-100 [facility] Comment on above: Performed By: #### H CURLY BMP3 ####[facility] [address] [place], [place] Urea nitrogen [Mass/Vol] 16 mg/dL Normal 9-20 [facility] Comment on above: Performed By: #### H CURLY BMP3 ####[employer] [address] [place], [place] Chloride [Moles/Vol] 113 mmol/L High 98-107 [facility] Comment on above: Performed By: #### H ZACH RAWLS3 ####[facility] [id number] [place], [place] Potassium [Moles/Vol] 3.5 mmol/L Normal 3.5-5.1 [facility] Comment on above: Performed By: #### H ELMER RAWLS ####[facility] [place], [place] Sodium [Moles/Vol] 141 mmol/L Normal 135-145 [facility] Comment on above: Performed By: #### H ZACH RAWLS3 ####[facility] [place], [place] Anion gap [Moles/Vol] 0 mmol/L Low 3 - 13 mmol/L [facility] Calcium [Mass/Vol] 7.7 mg/dL Low 8.4 - 10. 4 mg/dL [facility] Chloride [Moles/Vol] 113 mmol/L High 98 - 10 7 mmol/L [facility] CO2 [Moles/Vol] 28 mmol/L 22 - 30 mmol/L [facility] Creatinine [Mass/Vol] 0.48 mg/dL Low 0.52 - 1.25 mg/dL [facility] EGFR IF NonAfrican Bur[place]ian >90.0 >60 mL/min [facility] GFR/1.73 sq M.predicted among blacks MDRD (S/P/Bld) [Vol rate/Area] mL/min/{1.73_m2} >60 mL/min [facility] Glucose [Mass/Vol] 102 mg/dL High 70 - 100 mg/dL [facility] Interpretation and review of laboratory results Abnormal [facility] Potassium [Moles/Vol] 3.5 mmol/L 3.5 - 5.1 mmol/L [facility] Sodium [Moles/Vol] 141 mmol/L 135 - 145 mmol/L [facility] Urea nitrogen (BldV) [Mass/Vol] 16 mg/dL 9 - 20 mg/dL [facility] CBC WITH AUTO DIFFERENTIALon 12-29-2020 Absolute Baso # 0.2 10*3/uL 0.0 - 0.2 10*3/uL [facility] Absolute Neut # 16.9 10*3/uL High 1.8 - 7.0 10*3/uL [facility] Basophils/100 WBC (Bld) 0.9 % 0.0 - [...] 19.5 10*3/uL High 3.6 - 10.7 10*3/uL [facility] CR Chest Portableon 12-30-19 CR Chest Portable Normal [facility] Hemogram w/ Autodiffon 12-29 Abs Baso Cnt 0.2 10*3/uL Normal 0.0-0.2 [facility] Comment on above: Performed By: #### H CURLY BMP3 ####[address] [address] Abs Neutrophile Cnt 16.9 10*3/uL High 1.8-7.0 [facility] Comment on above: Performed By: #### H CURLY BMP3 ####[address] [address] Basophils/100 WBC (Bld) 0.9 % Normal 0.0-2.0 [facility] Comment on above: Performed By: #### H CULRY BMP3 ####[address] [address] Eosinophils (Bld) [#/Vol] 0.2 10*3/uL Normal 0.0-0.5 [facility] Comment on above: Performed By: #### H CURLY BMP3 ####[address] [address] Eosinophils/100 WBC (Bld) 1.0 % Normal 1.0-6.0 [facility] Comment on above: Performed By: #### H CURLY BMP3 ####[address] [address] Granulocytes/100 WBC (Bld) 84.6 % High 40.0-80.0 [facility] Comment on above: Performed By: #### H CURLY BMP3 ####[address] [address] Lymphocytes (Bld) [#/Vol] 2.0 10*3/uL Normal 1.0-4.3 [facility] Comment on above: Performed By: #### H CURLY, BMP3 ####[address] [address] Lymphocytes/100 WBC (Bld) 9.8 % Low 20.0-40.0 [facility] Comment on above: Performed By: #### H CURLY, BMP3 ####[address] [place], [place] Monocytes (Bld) [#/Vol] 0.7 10*3/uL Normal 0.0-0.8 [facility] Comment on above: Performed By: #### H EMDF, BMP3 ####[address] [place], [place] Monocytes/100 WBC (Bld) 3.7 % Normal 2.0-10.0 [facility] Comment on above: Performed By: #### H EMDF BMP3 ####[address] Erythrocyte distribution width (RBC) [Ratio] 16.0 % High 11.5-14.5 [facility] Comment on above: Performed By: #### H EMDF BMP3 ####[address] Hematocrit (Bld) [Volume fraction] 25.4 % Low 35.0-47.0 [facility] Comment on above: Performed By: #### H CURLY BMP3 ####[address] Hemoglobin (Bld) [Mass/Vol] 8.1 g/dL Low 11.7-16.0 [facility] Comment on above: Performed By: #### H EMDF, BMP3 ####[address] MCH (RBC) [Entitic mass] 29.9 pg Normal 26.0-34.0 [facility] Comment on above: Performed By: #### H EMDF, BMP3 ####[address] MCHC 31.9 % Low 32.0-36.0 [facility] Comment on above: Performed By: #### H EMDF, BMP3 ####[address] MCV (RBC) [Entitic vol] 93.5 fL Normal 79.0-98.0 [facility] Comment on above: Performed By: #### H EMDF BMP3 ####[address] [place], [place] Platelet mean volume (Bld) [Entitic vol] 9.0 fL Normal 7.4-10.4 [facility] Comment on above: Performed By: #### H EMDMiguel Ángel BMP3 ####[address] [place], [place] Platelets (Bld) [#/Vol] 642 10*3/uL High 140-440 [facility] Comment on above: Performed By: #### H CURLY BMP3 ####[address] [place], [place] RBC (Bld) [#/Vol] 2.72 10*6/uL Low 3.80-5.20 [facility] Comment on above: Performed By: #### H CURLY BMP3 ####[address] [place], [place] WBC (Bld) [#/Vol] 19.5 10*3/uL High 3.6-10.7 [facility] Comment on above: Performed By: #### H CURLY BMP3 ####[id number] [place], [place] XR CHEST PORTABLEon 12-30-19 [facility] Work Phone: [phone] [facility] Work Phone: Radiology Study observation (narrative) [facility] Work Phone: [phone] Basic Metabolic Panelon 12-18 Calcium [Mass/Vol] 8.0 mg/dL Low 8.4-10.4 [facility] Comment on above: Performed By: #### M G3, BMP3, PHOS3, PCAL ####[address] [place], [place] Anion gap [Moles/Vol] 7 mmol/L Normal 3-13 [facility] Comment on above: Performed By: #### M G3, BMP3, PHOS3, PCAL ####[facility] [address], [place] CO2 [Moles/Vol] 22 mmol/L Normal 22-30 [facility] Comment on above: Performed By: #### M G3, BMP3, PHOS3, PCAL ####[facility] [place], [place] Creatinine [Mass/Vol] 0.65 mg/dL Normal 0.52-1.25 [facility] Comment on above: Performed By: #### M G3, BMP3, PHOS3, PCAL ####[address] [place], [place] eGFR OTHER > 90.0 Normal >60 [facility] Comment on above: Result Comment: KDIG O guidelines provide the following GFR categories:Stage GFR(ml/min/1.73 m2) TermsG1 >=90 Normal or highG2 60-89 Mildly decreased*G3a 45-59 Mildly to moderately jnozarpibD1o 30-44 Moderately to severely decreasedG4 15-29 Severely [...] By: #### M G3, BMP3, PHOS3, PCAL ####[facility] [address] [place], [place] GFR/1.73 sq M.predicted among blacks MDRD (S/P/Bld) [Vol rate/Area] mL/min/{1.73_m2} Normal >60 [facility] Comment on above: Performed By: #### M G3, BMP3, PHOS3, PCAL ####[facility] [address] [place] [address] Glucose [Mass/Vol] 135 mg/dL High 70-100 [facility] Comment on above: Performed By: #### M G3, BMP3, PHOS3, PCAL ####[address] [place] [address] Urea nitrogen [Mass/Vol] 18 mg/dL Normal 9-20 [facility] Comment on above: Performed By: #### M G3, BMP3, PHOS3, PCAL ####[address] [place] [address] Chloride [Moles/Vol] 112 mmol/L High 98-107 [facility] Comment on above: Performed By: #### M G3, BMP3, PHOS3, PCAL ####[address] [place], [place] Potassium [Moles/Vol] 3.2 mmol/L Low 3.5-5.1 [facility] Comment on above: Performed By: #### Ward G3, BMP3, PHOS3, PCAL ####[address] [place], [place] Sodium [Moles/Vol] 140 mmol/L Normal 135-145 [facility] Comment on above: Performed By: #### M G3, BMP3, PHOS3, PCAL ####[address] [place], [place] Anion gap [Moles/Vol] 7 mmol/L 3 - 13 mmol/L [facility] Calcium [Mass/Vol] 8.0 mg/dL Low 8.4 - 10. 4 mg/dL [facility] Chloride [Moles/Vol] 112 mmol/L High 98 - 10 7 mmol/L [facility] CO2 [Moles/Vol] 22 mmol/L 22 - 30 mmol/L [facility] Creatinine [Mass/Vol] 0.65 mg/dL 0.52 - 1.25 mg/dL [facility] EGFR IF NonAfrican Burundian >90.0 >60 mL/min [facility] GFR/1.73 sq M.predicted [...] 15.6 % High 11.5 - 14.5 % [facility] Platelet mean volume (Bld) [Entitic vol] 9.3 fL 7.4 - 10.4 fL [facility] Platelets (Bld) [#/Vol] 646 10*3/uL High 140 - 440 10*3/uL [facility] RBC (Bld) [#/Vol] 2.89 10*6/uL Low 3.80 - 5.2 0 10*6/uL [facility] WBC (Bld) [#/Vol] 21.7 10*3/uL High 3.6 - 10.7 10*3/uL [facility] CR Chest Portableon 12-29-19 21 CR Chest Portable Normal [facility] CT Abdomen and Pelvis W cont rast Fritz 12-28-2020 [facility] Work Phone: CT Abdomen and Pelvis W cont rast IVOrdered By: Kraig Middleton on 12-28-2020 [facility] Work Phone: CT Abdomen/Pelvis w/ Contras ton 12-28-2020 CT Abdomen/Pelvis w/ Contrast Normal [facility] Gram Stainon 12-28-2020 Gram Stain Result [facility] Hemogram w/ Autodiffon 12-28 Abs Baso Cnt 0.1 10*3/uL Normal 0.0-0.2 [facility] Comment on above: Performed By: #### H EMDF ####[address] [place], [place] Abs Neutrophile Cnt 19.1 10*3/uL High 1.8-7.0 [facility] Comment on above: Performed By: #### H EMDF ####[address] [place], [place] Basophils/100 WBC (Bld) 0.3 % Normal 0.0-2.0 [facility] Comment on above: Performed By: #### H EMDF ####[address] [place], [place] Eosinophils (Bld) [#/Vol] 0.1 10*3/uL Normal 0.0-0.5 [facility] Comment on above: Performed By: #### H EMDF ####[address] Eosinophils/100 WBC (Bld) 0.4 % Low 1.0-6.0 [facility] Comment on above: Performed By: #### H EMDF ####[address] Erythrocyte distribution width (RBC) [Ratio] 15.6 % High 11.5-14.5 [facility] Comment on above: Performed By: #### H EMDF ####[address] Granulocytes/100 WBC (Bld) 87.8 % High 40.0-80.0 [facility] Comment on above: Performed By: #### H EMDF ####[address] Hematocrit (Bld) [Volume fraction] 27.1 % Low 35.0-47.0 [facility] Comment on above: Performed By: #### H EMDF ####[address] Hemoglobin (Bld) [Mass/Vol] 8.5 g/dL Low 11.7-16.0 [facility] Comment on above: Performed By: #### H EMDF ####[address] Lymphocytes (Bld) [#/Vol] 1.8 10*3/uL Normal 1.0-4.3 [facility] Comment on above: Performed By: #### H EMDF ####[address] Lymphocytes/100 WBC (Bld) 8.4 % Low 20.0-40.0 [facility] Comment on above: Performed By: #### H EMDF ####[address] MCH (RBC) [Entitic mass] 29.5 pg Normal 26.0-34.0 [facility] Comment on above: Performed By: #### H EMDF ####[address] MCHC 31.4 % Low 32.0-36.0 [facility] Comment on above: Performed By: #### H EMDF ####[address] MCV (RBC) [Entitic vol] 93.8 fL Normal 79.0-98.0 [facility] Comment on above: Performed By: #### H EMDF ####[address] Monocytes (Bld) [#/Vol] 0.7 10*3/uL Normal 0.0-0.8 [facility] Comment on above: Performed By: #### H EMDF ####[address] Monocytes/100 WBC (Bld) 3.1 % Normal 2.0-10.0 [facility] Comment on above: Performed By: #### H EMDF ####[address] Platelet mean volume (Bld) [Entitic vol] 9.3 fL Normal 7.4-10.4 [facility] Comment on above: Performed By: #### H EMDF ####[address] Platelets (Bld) [#/Vol] 646 10*3/uL High 140-440 [facility] Comment on above: Performed By: #### H EMDF ####[address] RBC (Bld) [#/Vol] 2.89 10*6/uL Low 3.80-5.20 [facility] Comment on above: Performed By: #### H EMDF ####[address] [address] WBC (Bld) [#/Vol] 21.7 10*3/uL High 3.6-10.7 [facility] Comment on above: Performed By: #### H EMDF ####[address] [place] [address] Magnesiumon 12-28-2020 Magnesium [Mass/Vol] 2.1 mg/dL Normal 1.6-2.3 [facility] Comment on above: Performed By: #### M G3, BMP3, PHOS3, PCAL ####[address] [place], [place] Magnesium [Mass/Vol] 2.1 mg/dL 1.6 - 2 .3 mg/dL [facility] No Panel Informationon 12-28 Radiology Study observation (narrative) [facility] Work Phone: Interpretation and review of laboratory results Abnormal [facility] Op Noteon 12-28-2020 Op Note Normal [facility] Phosphoruson 12-28-2020 Phosphate [Mass/Vol] 2.4 mg/dL Low 2.5-4.5 [facility] Comment on above: Performed By: #### M G3, BMP3, PHOS3, PCAL ####[address] [place], [place] Phosphate [Mass/Vol] 2.4 mg/dL Low 2.5 - 4 .5 mg/dL [facility] Procalcitoninon 12-28-2020 Procalcitonin 0.12 ng/mL High 0.00-0.09 [facility] Comment on above: Performed By: #### M G3, BMP3, PHOS3, PCAL ####[address] [place], [place] Interpretation See Below [facility] Interpretation and review of laboratory results Abnormal [facility] Procalcitonin 0.12 ng/mL High 0.00 - 0.09 ng/mL [facility] STAIN GRAMon 12-28-2020 STAIN GRAM STAIN GRAM --> Statu s: F Many polymorphonuclear cells/lpf. No organisms seen. No organisms seen. Normal [facility] Comment on above: Performed By: #### S /GRM ####[facility] [address] [place], [place] #### CS/RE ####[facility] [place] [address] [address] [place] [id number] VL LOWER EXTREMITY BILATERAL VENOUS DUPLEXon 12-28-2020 [facility]ARDIOLOG[facility] Work Phone: [facility] Work Phone: VL Venous Duplex US Lower Ex t Bilateralon 12-28-2020 VL Venous Duplex US Lower Ext Bilateral Normal [facility] XR CHEST PORTABLEon 12-29-19 21 [facility] Work Phone: XR CHEST PORTABLEOrdered By: Clau Mares on 12-28-2020 [facility] Work Phone: Basic Metabolic Panelon 12-18 Calcium [Mass/Vol] 8.2 mg/dL Low 8.4-10.4 [facility] Comment on above: Performed By: #### M DIFF, PHOS3, HEMDF, BMP3 ####[address] [place], [place] Anion gap [Moles/Vol] 4 mmol/L Normal 3-13 [facility] Comment on above: Performed By: #### M DIFF, PHOS3, HEMDF, BMP3 ####[address] [place], [place] CO2 [Moles/Vol] 25 mmol/L Normal -30 [facility] Comment on above: Performed By: #### M DIFF, PHOS3, HEMDF, BMP3 ####[facility] [place], [place] Creatinine [Mass/Vol] 0.55 mg/dL Normal 0.52-1.25 [facility] Comment on above: Performed By: #### M DIFF, PHOS3, HEMDF, BMP3 ####[address] [place], [place] eGFR OTHER > 90.0 Normal >60 [facility] Comment on above: Result Comment: KDIG O guidelines provide the following GFR categories:Stage GFR(ml/min/1.73 m2) TermsG1 >=90 Normal or highG2 60-89 Mildly decreased*G3a 45-59 Mildly to moderately afuhpqzecU0j 30-44 Moderately to severely decreasedG4 15-29 Severely [...] By: #### M DIFF, PHOS3, HEMDF, BMP3 ####[facility] [address] [place] [address] GFR/1.73 sq M.predicted among blacks MDRD (S/P/Bld) [Vol rate/Area] mL/min/{1.73_m2} Normal >60 [facility] Comment on above: Performed By: #### M DIFF, PHOS3, HEMDF, BMP3 ####[address] [place] [address] Glucose [Mass/Vol] 104 mg/dL High 70-100 [facility] Comment on above: Performed By: #### M DIFF, PHOS3, HEMDF, BMP3 ####[address] [place] [address] Urea nitrogen [Mass/Vol] 16 mg/dL Normal 9-20 [facility] Comment on above: Performed By: #### M DIFF, PHOS3, HEMDF, BMP3 ####[address] [place] [address] Chloride [Moles/Vol] 114 mmol/L High 98-107 [facility] Comment on above: Performed By: #### M DIFF, PHOS3, HEMDF, BMP3 ####[facility] [place] [address] Potassium [Moles/Vol] 3.3 mmol/L Low 3.5-5.1 [facility] Comment on above: Performed By: #### M DIFF, PHOS3, HEMDF, BMP3 ####[facility] [place] [address] Sodium [Moles/Vol] 143 mmol/L Normal 135-145 [facility] Comment on above: Performed By: #### M DIFF, PHOS3, HEMDF, BMP3 ####[facility] [place] [address] Anion gap [Moles/Vol] 4 mmol/L 3 - 13 mmol/L [facility] Calcium [Mass/Vol] 8.2 mg/dL Low 8.4 - 10. 4 mg/dL [facility] Chloride [Moles/Vol] 114 mmol/L High 98 - 10 7 mmol/L [facility] CO2 [Moles/Vol] 25 mmol/L 22 - 30 mmol/L [facility] Creatinine [Mass/Vol] 0.55 mg/dL 0.52 - 1.25 mg/dL [facility] EGFR IF NonAfrican Burundian >90.0 >60 mL/min [facility] GFR/1.73 sq M.predicted among blacks MDRD (S/P/Bld) [Vol rate/Area] mL/min/{1.73_m2} >60 mL/min [facility] Glucose [Mass/Vol] 104 mg/dL High 70 - 100 mg/dL [facility] Interpretation and review of laboratory results Abnormal [...] 8.4 g/dL Low 11.7 - 16.0 g/dL [facility] Interpretation and review of laboratory results Abnormal [...] 19.2 10*3/uL High 3.6 - 10.7 10*3/uL [facility] CR Chest Portableon 12-28-19 21 CR Chest Portable Normal [facility] CULT./ST. RESPIRATORYon 12-18 CULT./ST. RESPIRATORY Normal [facility] Comment on above: Performed By: #### C S/RE ####[address] [address] [id number]#### S/GRM ####[address] [address] Culture, Bloodon 12-27-2020 Blood Culture, Routine Staphylococcus epidermidis Abnormal [facility] Interpretation and review of laboratory results Abnormal [facility] Culture, Respiratoryon 12-27 Interpretation and review of laboratory results Abnormal [facility] Respiratory Culture Klebsiella oxytoca Abnormal [facility] Respiratory Culture Many [facility] Hemogram w/ Autodiffon 12-27 Erythrocyte distribution width (RBC) [Ratio] 15.1 % High 11.5-14.5 [facility] Comment on above: Performed By: #### M DIFF, PHOS3, HEMDF, BMP3 ####[address] [place], [place] Hematocrit (Bld) [Volume fraction] 26.0 % Low 35.0-47.0 [facility] Comment on above: Performed By: #### M DIFF, PHOS3, HEMDF, BMP3 ####[address] [place], [place] Hemoglobin (Bld) [Mass/Vol] 8.4 g/dL Low 11.7-16.0 [facility] Comment on above: Performed By: #### M DIFF, PHOS3, HEMDF, BMP3 ####[address] [place], [place] MCH (RBC) [Entitic mass] 29.9 pg Normal 26.0-34.0 [facility] Comment on above: Performed By: #### M DIFF, PHOS3, HEMDF, BMP3 ####[address] [place], [place] MCHC 32.2 % Normal 32.0-36.0 [facility] Comment on above: Performed By: #### M DIFF, PHOS3, HEMDF, BMP3 ####[address] [place], [place] MCV (RBC) [Entitic vol] 92.9 fL Normal 79.0-98.0 [facility] Comment on above: Performed By: #### M DIFF, PHOS3, HEMDF, BMP3 ####[address] [place], [place] Platelet mean volume (Bld) [Entitic vol] 9.3 fL Normal 7.4-10.4 [facility] Comment on above: Performed By: #### M DIFF, PHOS3, HEMDF, BMP3 ####[address] [place], [place] Platelets (Bld) [#/Vol] 543 10*3/uL High 140-440 [facility] Comment on above: Performed By: #### M DIFF, PHOS3, HEMDF, BMP3 ####[address] RBC (Bld) [#/Vol] 2.80 10*6/uL Low 3.80-5.20 [facility] Comment on above: Performed By: #### M DIFF, PHOS3, HEMDF, BMP3 ####[address] WBC (Bld) [#/Vol] 19.2 10*3/uL High 3.6-10.7 [facility] Comment on above: Performed By: #### M DIFF, PHOS3, HEMDF, BMP3 ####[address] Manual Diffon 12-27-2020 Abs Baso Cnt 0.0 10*3/uL Normal 0.0-0.2 [facility] Comment on above: Performed By: #### M DIFF, PHOS3, HEMDF, BMP3 ####[address] Abs Eosin Cnt 0.0 10*3/uL Normal 0.0-0.5 [facility] Comment on above: Performed By: #### M DIFF, PHOS3, HEMDF, BMP3 ####[address] Abs Lymph Cnt 1.7 10*3/uL Normal 1.1-4.5 [facility] Comment on above: Performed By: #### M DIFF, PHOS3, HEMDF, BMP3 ####[address] Abs Monocyte Cnt 0.4 10*3/uL Normal 0.2-1.1 [facility] Comment on above: Performed By: #### M DIFF, PHOS3, HEMDF, BMP3 ####[address] Abs Neutrophile Cnt 17.1 10*3/uL High 2.2-8.2 [facility] Comment on above: Performed By: #### M DIFF, PHOS3, HEMDF, BMP3 ####[address] [place] Anisocytosis Slight Normal [facility] Comment on above: Performed By: #### M DIFF, PHOS3, HEMDF, BMP3 ####[address] [place], [place] Bands 2 % Normal 0-3 [facility] Comment on above: Performed By: #### M DIFF, PHOS3, HEMDF, BMP3 ####[address] [place], [place] Basophils 0 % Normal 0-2 [facility] Comment on above: Performed By: #### M DIFF, PHOS3, HEMDF, BMP3 ####[address] Cells counted 100 Normal [facility] Comment on above: Performed By: #### M DIFF, PHOS3, HEMDF, BMP3 ####[address] [place], [place] Eosinophils 0 % Low 1-6 [facility] Comment on above: Performed By: #### M DIFF, PHOS3, HEMDF, BMP3 ####[address] Lymphocytes 9 % Low 20-40 [facility] Comment on above: Performed By: #### M DIFF, PHOS3, HEMDF, BMP3 ####[address] [place], [place] Macrocytosis Slight Normal [facility] Comment on above: Performed By: #### M DIFF, PHOS3, HEMDF, BMP3 ####[facility] [address] [place], [place] Microcytosis Slight Normal [facility] Comment on above: Performed By: #### M DIFF, PHOS3, HEMDF, BMP3 ####[address] [place], [place] Monocytes 2 % Normal 2-10 [facility] Comment on above: Performed By: #### M DIFF, PHOS3, HEMDF, BMP3 ####[address] [place], [place] NRBC 1 /100{WBCs} High -1-0 [facility] Comment on above: Result Comment: Newb orn (<60 days) 1-10Adult <1 Performed By: #### M DIFF, PHOS3, HEMDF, BMP3 ####[address] Ovalocytes Slight Normal [facility] Comment on above: Performed By: #### M DIFF, PHOS3, HEMDF, BMP3 ####[facility] [address] Poikilocytosis Slight Normal [facility] Comment on above: Performed By: #### M DIFF, PHOS3, HEMDF, BMP3 ####[address] Polychromasia Slight Normal [facility] Comment on above: Performed By: #### M DIFF, PHOS3, HEMDF, BMP3 ####[facility] [address] RBC Morphology ABNORMAL Normal [facility] Comment on above: Performed By: #### M DIFF, PHOS3, HEMDF, BMP3 ####[facility] [address] Seg Neutrophils 87 % High 40-80 [facility] Comment on above: Performed By: #### M DIFF, PHOS3, HEMDF, BMP3 ####[facility] [address] Toxic Granulation Slight Normal [facility] Comment on above: Performed By: #### M DIFF, PHOS3, HEMDF, BMP3 ####[facility] [address] Manual Differentialon 2020 Absolute Baso # 0.0 10*3/uL 0.0 - 0.2 10*3/uL [facility] Absolute Eos # 0.0 10*3/uL 0.0 - 0.5 10*3/uL [facility] Absolute Lymph # 1.7 10*3/uL 1.1 - 4.5 10*3/uL [facility] Absolute Real # 0.4 10*3/uL 0.2 - 1.1 10*3/uL [...] CELLS COUNTED 100 [facility] Toxic Granulation Slight [facility] No Panel Informationon 12-27 Blood Culture, Routine [facility] Respiratory Culture Escherichia coli Abnormal [facility] Respiratory Culture [facility] Phosphoruson 12-27-2020 Phosphate [Mass/Vol] 3.1 mg/dL Normal 2.5-4.5 [facility] Comment on above: Performed By: #### M DIFF, PHOS3, HEMDF, BMP3 ####[address] [place] [address] Phosphate [Mass/Vol] 3.1 mg/dL 2.5 - 4 .5 mg/dL [facility] Procalcitoninon 12-27-2020 Procalcitonin 0.11 ng/mL High 0.00-0.09 [facility] Comment on above: Performed By: #### P MICHELLE ####[address] [place] [address] Interpretation See Below Normal [facility] Work Phone: Comment on above: Result Comment: PCT <0.50 = Low risk of severe sepsis and/or septic shock.PCT >2.00 = High risk of severe sepsis and/or septic shock. Performed By: #### M G3, BMP3, PHOS3, PCAL ####[facility] [id number] [place], [place] Interpretation and review of laboratory results Abnormal [facility] Work Phone: Procalcitonin 0.11 ng/mL High 0.00 - 0.09 ng/mL [facility] Work Phone: [facility] Work Phone: XR CHEST PORTABLEon 12-28-19 21 [facility] RAD [facility] Work Phone: [phone] Radiology Study observation (narrative) [facility] Work Phone: XR CHEST PORTABLEOrdered By: Cruz Collins on 12-27-2020 [facility] Work Phone: Basic Metabolic Panelon 11 Anion gap [Moles/Vol] 3 mmol/L Normal 3-13 [facility] Comment on above: Performed By: #### H EMDF, BMP3, MDIFF, PHOS3 ####[facility] [id number] [place], [place] Calcium [Mass/Vol] 8.0 mg/dL Low 8.4-10.4 [facility] Comment on above: Performed By: #### H EMDF, BMP3, MDIFF, PHOS3 ####[facility] [id number] [place], [place] CO2 [Moles/Vol] 26 mmol/L Normal 22-30 [facility] Comment on above: Performed By: #### H EMDF, BMP3, MDIFF, PHOS3 ####[facility] [address] [place], [place] Glucose [Mass/Vol] 103 mg/dL High 70-100 [facility] Comment on above: Performed By: #### H EMDF, BMP3, MDIFF, PHOS3 ####[facility] [address] [place], [place] Urea nitrogen [Mass/Vol] 18 mg/dL Normal 9-20 [facility] Comment on above: Performed By: #### H ELMER RAWLS MDIFF, PHOS3 ####[facility] [address] [place], [place] Creatinine [Mass/Vol] 0.64 mg/dL Normal 0.52-1.25 [facility] Comment on above: Performed By: #### H ELMER RAWLS MDIFF, PHOS3 ####[facility] [address] [place], [place] eGFR OTHER > 90.0 Normal >60 [facility] Comment on above: Result Comment: KDIG O guidelines provide the following GFR categories:Stage GFR(ml/min/1.73 m2) TermsG1 >=90 Normal or highG2 60-89 Mildly decreased*G3a 45-59 Mildly to moderately kdnrrdstoQ4c 30-44 Moderately to severely decreasedG4 15-29 Severely [...] By: #### H ELMER RAWLS MDIFF, PHOS3 ####[facility] [id number] [place], [place] GFR/1.73 sq M.predicted among blacks MDRD (S/P/Bld) [Vol rate/Area] mL/min/{1.73_m2} Normal >60 [facility] Comment on above: Performed By: #### H ELMER RAWLS MDIFF PHOS3 ####[facility] [address] [place], [place] Potassium [Moles/Vol] 3.9 mmol/L Normal 3.5-5.1 [facility] Comment on above: Performed By: #### H ELMER RAWLS MDIFF PHOS3 ####[facility] [address] [place] [address] Sodium [Moles/Vol] 144 mmol/L Normal 135-145 [facility] Comment on above: Performed By: #### H ELMER RAWLS MDIFF, PHOS3 ####[facility] [address] [place] [address] Chloride [Moles/Vol] 115 mmol/L High 98-107 [facility] Comment on above: Performed By: #### H ELMER RAWLS MDIFF, PHOS3 ####[address] [place] [address] Anion gap [Moles/Vol] 3 mmol/L 3 - 13 mmol/L [facility] Calcium [Mass/Vol] 8.0 mg/dL Low 8.4 - 10. 4 mg/dL [facility] Chloride [Moles/Vol] 115 mmol/L High 98 - 10 7 mmol/L [facility] CO2 [Moles/Vol] 26 mmol/L 22 - 30 mmol/L [facility] Creatinine [Mass/Vol] 0.64 mg/dL 0.52 - 1.25 mg/dL [facility] EGFR IF NonAfrican Burundian >90.0 >60 mL/min [facility] GFR/1.73 sq M.predicted [...] [Mass/Vol] 32.1 % 32.0 - 36.0 % [facility] Platelet distribution width (Bld) [Ratio] 14.8 % High 11.5 - 14.5 % [facility] CR Abdomen APon 12-26-2020 CR Abdomen AP Normal [facility] CR Chest Portableon 12-27-19 CR Chest Portable Normal [facility] Hemogram w/ Autodiffon 12-26 Hematocrit (Bld) [Volume fraction] 27.0 % Low 35.0-47.0 [facility] Comment on above: Performed By: #### H EMDZACH Del Rosario3LUIS ALFREDO, PHOS3 ####[address] MCH (RBC) [Entitic mass] 29.8 pg Normal 26.0-34.0 [facility] Comment on above: Performed By: #### H EMDELMER Del Rosario MDIFF, PHOS3 ####[address] MCV (RBC) [Entitic vol] 92.9 fL Normal 79.0-98.0 [facility] Comment on above: Performed By: #### H EMDELMER Del Rosario MDIFF, PHOS3 ####[address] Platelet mean volume (Bld) [Entitic vol] 9.0 fL Normal 7.4-10.4 [facility] Comment on above: Performed By: #### H EMDFZACH3LUIS ALFREDO, PHOS3 ####[address] Platelets (Bld) [#/Vol] 464 10*3/uL High 140-440 [facility] Comment on above: Performed By: #### H EMDZACH Del Rosario3LUIS ALFREDO, PHOS3 ####[address] RBC (Bld) [#/Vol] 2.91 10*6/uL Low 3.80-5.20 [facility] Comment on above: Performed By: #### H EMDF BMP3 MDIFF, PHOS3 ####[address] WBC (Bld) [#/Vol] 17.9 10*3/uL High 3.6-10.7 [facility] Comment on above: Performed By: #### H ELMER RAWLS MDIFF, PHOS3 ####[address] Erythrocyte distribution width (RBC) [Ratio] 14.8 % High 11.5-14.5 [facility] Comment on above: Performed By: #### H ELMER RAWLS MDIFF, PHOS3 ####[address] Hemoglobin (Bld) [Mass/Vol] 8.7 g/dL Low 11.7-16.0 [facility] Comment on above: Performed By: #### H ELMER RAWLS MDIFF, PHOS3 ####[address] MCHC 32.1 % Normal 32.0-36.0 [facility] Comment on above: Performed By: #### H ELMER RAWLS MDIFF, PHOS3 ####[address] Manual Diffon 12-26-2020 Abs Lymph Cnt 1.6 10*3/uL Normal 1.1-4.5 [facility] Comment on above: Performed By: #### H ELMER RAWLS MDIFF, PHOS3 ####[address] Abs Monocyte Cnt 0.7 10*3/uL Normal 0.2-1.1 [facility] Comment on above: Performed By: #### H ELMER RAWLS MDIFF, PHOS3 ####[address] Abs Neutrophile Cnt 15.2 10*3/uL High 2.2-8.2 [facility] Comment on above: Performed By: #### H ELMER RAWLS MDIFF, PHOS3 ####[facility] [address] [place], [place] Anisocytosis Slight Normal [facility] Comment on above: Performed By: #### H EMDF BMP3, MDIFF, PHOS3 ####[address] [place], [place] Lymphocytes 9 % Low 20-40 [facility] Comment on above: Performed By: #### H EMDF, BMP3, MDIFF, PHOS3 ####[address] [place], [place] Macrocytosis Slight Normal [facility] Comment on above: Performed By: #### H EMDF BMP3, MDIFF, PHOS3 ####[address] [place], [place] Metamyelocytes 2 % Abnormal <1 [facility] Comment on above: Performed By: #### H EMDF, BMP3, MDIFF, PHOS3 ####[address] [place], [place] Microcytosis Slight Normal [facility] Comment on above: Performed By: #### H EMDF, BMP3, MDIFF, PHOS3 ####[address] [place], [place] Monocytes 4 % Normal 2-10 [facility] Comment on above: Performed By: #### H EMDF, BMP3, MDIFF, PHOS3 ####[address] [place], [place] NRBC 7 /100{WBCs} High -1-0 [facility] Comment on above: Result Comment: Newb orn (<60 days) 1-10Adult <1 Performed By: #### H EMDF, BMP3, MDIFF, PHOS3 ####[address] [place], [place] Ovalocytes Slight Normal [facility] Comment on above: Performed By: #### H EMDF, BMP3, MDIFF, PHOS3 ####[address] [place], [place] Poikilocytosis Slight Normal [facility] Comment on above: Performed By: #### H EMDF, BMP3, MDIFF, PHOS3 ####[address] [place], [place] Polychromasia Slight Normal [facility] Comment on above: Performed By: #### H EMDF, BMP3, MDIFF, PHOS3 ####[address] [place], [place] RBC Morphology ABNORMAL Normal [facility] Comment on above: Performed By: #### H EMDF, BMP3, MDIFF, PHOS3 ####[address] Seg Neutrophils 85 % High 40-80 [facility] Comment on above: Performed By: #### H EMDF, BMP3, MDIFF, PHOS3 ####[address] Abs Baso Cnt 0.0 10*3/uL Normal 0.0-0.2 [facility] Comment on above: Performed By: #### H EMDF, BMP3, MDIFF, PHOS3 ####[address] Abs Eosin Cnt 0.0 10*3/uL Normal 0.0-0.5 [facility] Comment on above: Performed By: #### H EMDF, BMP3, MDIFF, PHOS3 ####[address] Bands 0 % Normal 0-3 [facility] Comment on above: Performed By: #### H EMDF, BMP3, MDIFF, PHOS3 ####[address] Basophils 0 % Normal 0-2 [facility] Comment on above: Performed By: #### H EMDF, BMP3, MDIFF, PHOS3 ####[address] Cells counted 100 Normal [facility] Comment on above: Performed By: #### H ELMER RAWLS MDIFF, PHOS3 ####[facility] [employer] [address] [place] [address] Eosinophils 0 % Low 1-6 [facility] Comment on above: Performed By: #### H ELMER RAWLS MDIFF, PHOS3 ####[facility] [employer] [address] [place] [address] Manual Differentialon 2020 Absolute Baso # 0.0 10*3/uL 0.0 - 0.2 10*3/uL [facility] Absolute Eos # 0.0 10*3/uL 0.0 - 0.5 10*3/uL [facility] Absolute Lymph # 1.6 10*3/uL 1.1 - 4.5 10*3/uL [facility] Absolute Real # 0.7 10*3/uL 0.2 - 1.1 10*3/uL [...] 80 % [facility] TOTAL CELLS COUNTED 100 [facility] No Panel Informationon 12-26 Radiology Study observation (narrative) [facility] Work Phone: [facility] OPERATIVE REPORTon [facility] Phosphoruson 12-26-2020 Phosphate [Mass/Vol] 3.1 mg/dL Normal 2.5-4.5 [facility] Comment on above: Performed By: #### H EMDF, BMP3, MDIFF, PHOS3 ####[address] [place], [place] Phosphate [Mass/Vol] 3.1 mg/dL 2.5 - 4 .5 mg/dL [facility] Procalcitoninon 12-26-2020 Procalcitonin 0.09 ng/mL Normal 0.00-0.09 [facility] Comment on above: Performed By: #### P MICHELLE ####[address] [place], [place] Interpretation See Below [facility] Procalcitonin 0.09 ng/mL 0.00 - 0.09 ng/mL [facility] Interpretation See Below Normal [facility] Comment on above: Result Comment: PCT <0.50 = Low risk of severe sepsis and/or septic shock.PCT >2.00 = High risk of severe sepsis and/or septic shock. Performed By: #### P MICHELLE ####[facility] [employer] [id number] [place], [place] Interpretation See Below Normal [facility] Comment on above: Result Comment: PCT <0.50 = Low risk of severe sepsis and/or septic shock.PCT >2.00 = High risk of severe sepsis and/or septic shock. Performed By: #### P MICHELLE ####[address] XR ABDOMEN (KUB) (SINGLE AP VIEW)on 12-26-2020 [facility] Last Guide Work Phone: XR ABDOMEN (KUB) (SINGLE AP VIEW)Ordered By: Theron Cooley on 12-26-2020 [facility] Work Phone: XR CHEST PORTABLEon 12-27-19 21 [facility] [employer] [facility] [employer] Work Phone: XR CHEST PORTABLEOrdered By: Marvel Wilder on 12-26-2020 [facility] Work Phone: Arterial Blood Gaseson 11-08 -2021 CO2 [Moles/Vol] 28.1 mmol/L High 23.0-27.0 [facility] Comment on above: Performed By: #### JIGAR NATH ####[address] [place], [place] HCO3 (Bld) [Moles/Vol] 26.9 mmol/L High 21.0-25.0 [facility] Comment on above: Performed By: #### JIGAR NATH ####[address] Hemoglobin (Bld) [Mass/Vol] 8.6 g/dL Normal ScreenOnly [facility] Comment on above: Performed By: #### JIGAR NATH ####[address] [place], [place] Oxygen (Bld) [Partial pressure] 102.4 mm[Hg] High 80.0-100.0 [facility] Comment on above: Performed By: #### JIGAR NATH ####[address] Oxygen saturation in Blood 97.7 % Normal 95.0-100.0 [facility] Comment on above: Performed By: #### JIGAR NATH ####[address] pCO2 38.8 mm[Hg] Normal 35.0-45.0 [facility] Comment on above: Performed By: #### JIGAR NATH ####[address] pH 7.459 High 7.350-7.450 [facility] Comment on above: Performed By: #### JIGAR NATH ####[address] Std Base Excess 2.9 mmol/L Normal -3.0-3.0 [facility] Comment on above: Performed By: #### JIGAR NATH ####[address] FIO2 No data Normal [facility] Comment on above: Performed By: #### Jacek ALBRIGHT3ABG ####[address] [place], [place] BLOOD GAS, ARTERIALon 2020 Base Excess, Arterial 2.9 mmol/L -3.0 - 3.0 mmol/L [facility] CO2 [Moles/Vol] 28.1 mmol/L High 23.0 - 27.0 mmol/L [facility] FIO2 Arterial No data [facility] HCO3 (Bld) [Moles/Vol] 26.9 mmol/L High 21.0 - 25.0 mmol/L [facility] Hemoglobin (Bld) [Mass/Vol] 8.6 g/dL ScreenOnly [facility] Interpretation and review of laboratory results Abnormal [facility] Oxygen saturation in Blood 97.7 % 95.0 - 100.0 % [facility] pCO2, Arterial 38.8 mm[Hg] 35.0 - 45.0 mm[Hg] [facility] pH, Arterial 7.459 High [facility] pO2, Arterial 102.4 mm[Hg] High 80.0 - 100.0 mm[Hg] [facility] Basic Metabolic Panelon Anion gap [Moles/Vol] 1 mmol/L Low 3-13 [facility] Comment on above: Performed By: #### Jacek HORNER, ABG ####[address] [place], [place] Calcium [Mass/Vol] 7.9 mg/dL Low 8.4-10.4 [facility] Comment on above: Performed By: #### Jacek ALBRIGHT3, ABG ####[address] [place] [address] CO2 [Moles/Vol] 28 mmol/L Normal 22-30 [facility] Comment on above: Performed By: #### Jacek ALBRIGHT3, ABG ####[address] [place] [address] Glucose [Mass/Vol] 105 mg/dL High 70-100 [facility] Comment on above: Performed By: #### Jacek ALBRIGHT3, ABG ####[facility] [place], [place] Urea nitrogen [Mass/Vol] 19 mg/dL Normal 9-20 [facility] Comment on above: Performed By: #### Jacek ALBRIGHT3JIGAR ####[facility] [place], [place] Creatinine [Mass/Vol] 0.54 mg/dL Normal 0.52-1.25 [facility] Comment on above: Performed By: #### JIGAR NATH ####[address] [place], [place] eGFR OTHER > 90.0 Normal >60 [facility] Comment on above: Result Comment: KDIG O guidelines provide the following GFR categories:Stage GFR(ml/min/1.73 m2) TermsG1 >=90 Normal or highG2 60-89 Mildly decreased*G3a 45-59 Mildly to moderately hablmavhtR2j 30-44 Moderately to severely decreasedG4 15-29 Severely [...] creatinine secretion. Performed By: #### JIGAR NATH ####[facility] [place], [place] GFR/1.73 sq M.predicted among blacks MDRD (S/P/Bld) [Vol rate/Area] mL/min/{1.73_m2} Normal >60 [facility] Comment on above: Performed By: #### JIGAR NATH ####[facility] [place], [place] Potassium [Moles/Vol] 3.5 mmol/L Normal 3.5-5.1 [facility] Comment on above: Performed By: #### Jacek HORNER G ####[facility] [place] [address] Chloride [Moles/Vol] 115 mmol/L High 98-107 [facility] Comment on above: Performed By: #### B NATALEE3, ABG ####[facility] [place] [address] Sodium [Moles/Vol] 144 mmol/L Normal 135-145 [facility] Comment on above: Performed By: #### B NATALEE3, ABG ####[address] [place] [address] Anion gap [Moles/Vol] 1 mmol/L Low 3 - 13 mmol/L [facility] Calcium [Mass/Vol] 7.9 mg/dL Low 8.4 - 10. 4 mg/dL [facility] Chloride [Moles/Vol] 115 mmol/L High 98 - 10 7 mmol/L [facility] CO2 [Moles/Vol] 28 mmol/L 22 - 30 mmol/L [facility] Creatinine [Mass/Vol] 0.54 mg/dL 0.52 - 1.25 mg/dL [facility] EGFR IF NonAfrican Burundian >90.0 >60 mL/min [facility] GFR/1.73 sq M.predicted among blacks MDRD (S/P/Bld) [Vol rate/Area] mL/min/{1.73_m2} >60 mL/min [facility] Glucose [Mass/Vol] 105 mg/dL High 70 - 100 mg/dL [facility] Interpretation and review of laboratory results Abnormal [facility] Potassium [Moles/Vol] 3.5 mmol/L 3.5 - 5.1 mmol/L [facility] Sodium [Moles/Vol] 144 mmol/L 135 - 145 mmol/L [facility] Urea nitrogen (BldV) [Mass/Vol] 19 mg/dL 9 - 20 mg/dL [facility] CBCon 12-25-2020 Hematocrit (Bld) [Volume fraction] 26.3 % Low 35.0 - 47.0 % [facility] Hemoglobin.gastrointe stinal spec 1 Ql (Stl) 8.6 g/dL Low 11.7 - 16.0 g/dL [facility] Interpretation and review of laboratory results Abnormal [...] 10*6/uL Low 3.80 - 5.2 0 10*6/uL [facility] WBC (Bld) [#/Vol] 15.1 10*3/uL High 3.6 - 10.7 10*3/uL [facility] CULTURE MYCOBACTERIA Conc.on 12-25-2020 CULTURE MYCOBACTERIA Conc. CULTURE MYCOBACTERIA Conc. --> Status: F No acid-fast bacilli isolated after 6 weeks incubation. STAIN ACID-FAST --> Status: F No acid-fast bacilli seen in smear. - Method: Fluorescent Stain - Method: Fluorescent Stain Normal [facility] Comment on above: Performed By: #### C /TBC ####[address] [place], [place] Fungal stainon 12-25-2020 Fungus Stain [facility] Hemogramon 12-25-2020 Erythrocyte distribution width (RBC) [Ratio] 15.1 % High 11.5-14.5 [facility] Comment on above: Performed By: #### H EMOG ####[address] [place], [place] Hematocrit (Bld) [Volume fraction] 26.3 % Low 35.0-47.0 [facility] Comment on above: Performed By: #### H EMOG ####[address] [place], [place] Hemoglobin (Bld) [Mass/Vol] 8.6 g/dL Low 11.7-16.0 [facility] Comment on above: Performed By: #### H EMOG ####[address] MCH (RBC) [Entitic mass] 29.8 pg Normal 26.0-34.0 [facility] Comment on above: Performed By: #### H EMOG ####[address] MCHC 32.6 % Normal 32.0-36.0 [facility] Comment on above: Performed By: #### H EMOG ####[address] MCV (RBC) [Entitic vol] 91.4 fL Normal 79.0-98.0 [facility] Comment on above: Performed By: #### H EMOG ####[address] Platelet mean volume (Bld) [Entitic vol] 9.1 fL Normal 7.4-10.4 [facility] Comment on above: Performed By: #### H EMOG ####[address] Platelets (Bld) [#/Vol] 381 10*3/uL Normal 140-440 [facility] Comment on above: Performed By: #### H EMOG ####[address] RBC (Bld) [#/Vol] 2.88 10*6/uL Low 3.80-5.20 [facility] Comment on above: Performed By: #### H EMOG ####[address] WBC (Bld) [#/Vol] 15.1 10*3/uL High 3.6-10.7 [facility] Comment on above: Performed By: #### H EMOG ####[address] Op Noteon 12-25-2020 Op Note Normal [facility] Op Note Normal [facility] STAIN FUNGUSon 12-25-2020 STAIN FUNGUS STAIN FUNGUS --> Sta tus: F No fungal elements seen. - Method: Direct Exam by Calcofluor Stain - Method: Direct Exam by Calcofluor Stain Normal [facility] Comment on above: Performed By: #### S /FUN ####[facility] [place], [place] VL LOWER EXTREMITY BILATERAL VENOUS DUPLEXon 12-25-2020 [facility] Work Phone: Radiology Study observation (narrative) [facility] Work Phone: VL LOWER EXTREMITY BILATERAL VENOUS DUPLEXOrdered By: Karrie Rosenberg on 12-25-2020 [facility] Work Phone: VL Venous Duplex US Lower Ex t Bilateralon 12-25-2020 VL Venous Duplex US Lower Ext Bilateral Normal [facility] Arterial Blood Gaseson 12-24 CO2 [Moles/Vol] 26.9 mmol/L Normal 23.0-27.0 [facility] Comment on above: Performed By: #### A BG BMP3 ####[facility] [employer] [address] [place], [place] HCO3 (Bld) [Moles/Vol] 25.9 mmol/L High 21.0-25.0 [facility] Comment on above: Performed By: #### A BG BMP3 ####[facility] [employer] [address] [place], [place] Hemoglobin (Bld) [Mass/Vol] 9.7 g/dL Normal ScreenOnly [facility] Comment on above: Performed By: #### A BG, BMP3 ####[facility] [address] [place], [place] Oxygen (Bld) [Partial pressure] 92.9 mm[Hg] Normal 80.0-100.0 [facility] Comment on above: Performed By: #### A BG, BMP3 ####[facility] [employer] [address] [place], [place] Oxygen saturation in Blood 97.1 % Normal 95.0-100.0 [facility] Comment on above: Performed By: #### A BG, BMP3 ####[facility] [address] [place] [address] pCO2 33.3 mm[Hg] Low 35.0-45.0 [facility] Comment on above: Performed By: #### A BG, BMP3 ####[facility] [place] [address] pH 7.509 High 7.350-7.450 [facility] Comment on above: Performed By: #### A BG, BMP3 ####[facility] [address] [place] [address] Std Base Excess 3.0 mmol/L Normal -3.0-3.0 [facility] Comment on above: Performed By: #### A BG, BMP3 ####[address] [place] [address] FIO2 No data Normal [facility] Comment on above: Performed By: #### A BG, BMP3 ####[address] [place] [address] BLOOD GAS, ARTERIALon 2020 Base Excess, Arterial 3.0 mmol/L -3.0 - 3.0 mmol/L [facility] CO2 [Moles/Vol] 26.9 mmol/L 23.0 - 27.0 mmol/L [facility] FIO2 Arterial No data [facility] HCO3 (Bld) [Moles/Vol] 25.9 mmol/L High 21.0 - 25.0 mmol/L [facility] Hemoglobin (Bld) [Mass/Vol] 9.7 g/dL ScreenOnly [facility] Interpretation and review of laboratory results Abnormal [facility] Oxygen saturation in Blood 97.1 % 95.0 - 100.0 % [facility] pCO2, Arterial 33.3 mm[Hg] Low 35.0 - 45.0 mm[Hg] [facility] pH, Arterial 7.509 High [facility] pO2, Arterial 92.9 mm[Hg] 80.0 - 100.0 mm[Hg] [facility] Basic Metabolic Panelon Anion gap [Moles/Vol] 3 mmol/L Normal 3-13 [facility] Comment on above: Performed By: #### A BG BMP3 ####[employer] [address] [place], [place] CO2 [Moles/Vol] 28 mmol/L Normal 22-30 [facility] Comment on above: Performed By: #### A BG BMP3 ####[facility] [address] [place], [place] Creatinine [Mass/Vol] 0.63 mg/dL Normal 0.52-1.25 [facility] Comment on above: Performed By: #### A BG BMP3 ####[facility] [employer] [address] [place], [place] eGFR OTHER > 90.0 Normal >60 [facility] Comment on above: Result Comment: KDIG O guidelines provide the following GFR categories:Stage GFR(ml/min/1.73 m2) TermsG1 >=90 Normal or highG2 60-89 Mildly decreased*G3a 45-59 Mildly to moderately oxevsigzqQ5h 30-44 Moderately to severely decreasedG4 15-29 Severely [...] secretion. Performed By: #### A BG BMP3 ####[facility] [address] [place], [place] GFR/1.73 sq M.predicted among blacks MDRD (S/P/Bld) [Vol rate/Area] mL/min/{1.73_m2} Normal >60 [facility] Comment on above: Performed By: #### A BG BMP3 ####[facility] [address] [place], [place] Urea nitrogen [Mass/Vol] 20 mg/dL Normal 9-20 [facility] Comment on above: Performed By: #### A BG BMP3 ####[address] [place] [address] Chloride [Moles/Vol] 116 mmol/L High 98-107 [facility] Comment on above: Performed By: #### A BG, BMP3 ####[address] [place], [place] Potassium [Moles/Vol] 3.5 mmol/L Normal 3.5-5.1 [facility] Comment on above: Performed By: #### A BG BMP3 ####[address] [place], [place] Sodium [Moles/Vol] 147 mmol/L High 135-145 [facility] Comment on above: Performed By: #### A BG BMP3 ####[address] [place], [place] Calcium [Mass/Vol] 8.2 mg/dL Low 8.4-10.4 [facility] Comment on above: Performed By: #### A BG BMP3 ####[address] [place], [place] Glucose [Mass/Vol] 112 mg/dL High 70-100 [facility] Comment on above: Performed By: #### A BG BMP3 ####[address] [place], [place] Anion gap [Moles/Vol] 3 mmol/L 3 - 13 mmol/L [facility] Chloride [Moles/Vol] 116 mmol/L High 98 - 10 7 mmol/L [facility] CO2 [Moles/Vol] 28 mmol/L 22 - 30 mmol/L [facility] Creatinine [Mass/Vol] 0.63 mg/dL 0.52 - 1.25 mg/dL [facility] EGFR IF NonAfrican Burundian >90.0 >60 mL/min [facility] GFR/1.73 sq M.predicted among blacks MDRD (S/P/Bld) [Vol rate/Area] mL/min/{1.73_m2} >60 mL/min [facility] Interpretation and review of laboratory results Abnormal [facility] Potassium [Moles/Vol] 3.5 mmol/L 3.5 - 5.1 mmol/L [facility] Sodium [Moles/Vol] 147 mmol/L High 135 - 145 mmol/L [facility] Urea nitrogen (BldV) [Mass/Vol] 20 mg/dL 9 - 20 mg/dL [facility] CBCon 12-24-2020 Hematocrit (Bld) [Volume fraction] 29.5 % Low 35.0 - 47.0 % [facility] Hemoglobin.gastrointe stinal spec 1 Ql (Stl) 9.7 g/dL Low 11.7 - 16.0 g/dL [facility] Interpretation and review of laboratory results Abnormal [...] 17.6 10*3/uL High 3.6 - 10.7 10*3/uL [facility] CR Abdomen APon 12-24-2020 CR Abdomen AP Normal [facility] CR Chest Portableon 12-25-19 CR Chest Portable Normal [facility] CR Chest Portable Normal [facility] Complete Urinalysison 2020 Appearance (U) Clear Normal Clear [facility] Comment on above: Result Comment: . Performed By: #### C UA2 ####[facility] [address] [place] [address] Bacteria Few Abnormal Negative [facility] Comment on above: Result Comment: . Performed By: #### C UA2 ####[facility] [id number] [place], [place] Bilirubin,Urine Negative Normal Negative [facility] Comment on above: Result Comment: . Performed By: #### C UA2 ####[facility] [address] [place], [place] Cast, Hyaline Negative Normal Negative [facility] Comment on above: Result Comment: . Performed By: #### C UA2 ####[facility] [id number] [place], [place] Color (U) Yellow Normal Lt. Yellow [facility] Comment on above: Result Comment: . Performed By: #### C UA2 ####[facility] [address] [place], [place] Glucose Ql (U) Normal Normal Normal (<70) [facility] Comment on above: Result Comment: . Performed By: #### C UA2 ####[facility] [id number] [place], [place] Ketone,Urine Trace Abnormal Negative [facility] Comment on above: Result Comment: . Performed By: #### C UA2 ####[facility] [id number] [place], [place] Leukocytes,Urine 250 Richard/uL Abnormal Negative [facility] Comment on above: Result Comment: . Performed By: #### C UA2 ####[facility] [employer] [id number] [place], [place] Mucous Threads Few Normal Negative [facility] Comment on above: Result Comment: . Performed By: #### C UA2 ####[facility] [address] [place], [place] Nitrites,Urine Negative Normal Negative [facility] Comment on above: Result Comment: . Performed By: #### C UA2 ####[facility] [employer] [address] [place], [place] Non-Squamous Epithelial 2 /[HPF] Abnormal Negative [facility] Comment on above: Result Comment: . Performed By: #### C UA2 ####[address] [place], [place] Occult Blood,Urine 0.06 mg/dL Abnormal Negative [facility] Comment on above: Result Comment: . Performed By: #### C UA2 ####[address] pH,Urine 6.5 Normal 5.0-8.0 [facility] Comment on above: Result Comment: . Performed By: #### C UA2 ####[address] Protein (U) [Mass/Vol] 50 mg/dL Abnormal Negative [facility] Comment on above: Result Comment: . Performed By: #### C UA2 ####[address] RBC, Urine 11 - 25 Abnormal 0-2 [facility] Comment on above: Result Comment: . Performed By: #### C UA2 ####[address] Specific [place],Urine 1.029 Normal 1.005 - 1.030 [facility] Comment on above: Result Comment: . Performed By: #### C UA2 ####[address] Squamous Epithelial 3 - 5 Normal 3-5 [facility] Comment on above: Result Comment: . Performed By: #### C UA2 ####[address] Urobilinogen,Urine 2 mg/dL Abnormal Normal (0-1) [facility] Comment on above: Result Comment: . Performed By: #### C UA2 ####[address] WBC, Urine 11 - 25 Abnormal 0-5 [facility] Comment on above: Result Comment: . Performed By: #### C UA2 ####[address] [address] Gram Stainon 12-24-2020 Gram Stain Result [facility] Hemogramon 12-24-2020 Erythrocyte distribution width (RBC) [Ratio] 14.9 % High 11.5-14.5 [facility] Comment on above: Performed By: #### H EMOG ####[address] [place], [place] Hematocrit (Bld) [Volume fraction] 29.5 % Low 35.0-47.0 [facility] Comment on above: Performed By: #### H EMOG ####[address] Hemoglobin (Bld) [Mass/Vol] 9.7 g/dL Low 11.7-16.0 [facility] Comment on above: Performed By: #### H EMOG ####[address] MCH (RBC) [Entitic mass] 29.7 pg Normal 26.0-34.0 [facility] Comment on above: Performed By: #### H EMOG ####[address] MCHC 32.8 % Normal 32.0-36.0 [facility] Comment on above: Performed By: #### H EMOG ####[address] MCV (RBC) [Entitic vol] 90.5 fL Normal 79.0-98.0 [facility] Comment on above: Performed By: #### H EMOG ####[address] Platelet mean volume (Bld) [Entitic vol] 9.2 fL Normal 7.4-10.4 [facility] Comment on above: Performed By: #### H EMOG ####[address] Platelets (Bld) [#/Vol] 323 10*3/uL Normal 140-440 [facility] Comment on above: Performed By: #### H EMOG ####[address] RBC (Bld) [#/Vol] 3.26 10*6/uL Low 3.80-5.20 [facility] Comment on above: Performed By: #### H EMOG ####[address] WBC (Bld) [#/Vol] 17.6 10*3/uL High 3.6-10.7 [facility] Comment on above: Performed By: #### H EMOG ####[address] Procalcitoninon 12-24-2020 Procalcitonin 0.14 ng/mL High 0.00-0.09 [facility] Comment on above: Performed By: #### P MICHELLE ####[address] Interpretation See Below [facility] Interpretation and review of laboratory results Abnormal [facility] Procalcitonin 0.14 ng/mL High 0.00 - 0.09 ng/mL [facility] Interpretation See Below Normal [facility] Comment on above: Result Comment: PCT <0.50 = Low risk of severe sepsis and/or septic shock.PCT >2.00 = High risk of severe sepsis and/or septic shock. Performed By: #### P MICHELLE ####[address] STAIN GRAMon 12-24-2020 STAIN GRAM STAIN GRAM --> Statu s: F Moderate polymorphonuclear cells/lpf. Rare gram negative bacilli. Rare gram positive cocci in clusters. Rare gram negative bacilli. Rare gram positive cocci in clusters. Normal [facility] Comment on above: Performed By: #### C S/RE ####[address] [address] #### S/GRM ####[address] Urinalysison 12-24-2020 Appearance (U) Clear Clear NA [facility] Bacteria, UA Few Abnormal Negative /[HPF] [facility] Bilirubin Urine Negative Negative mg/dL [facility] Color (U) Yellow Lt. Yellow NA [facility] Glucose, Ur Normal Normal (<70) mg/dL [facility] Hyaline Casts, UA Negative Negative /[LPF] [facility] Interpretation and review of laboratory results Abnormal [...] Abnormal 0 - 2 /[HPF] [facility] Specific [place], Urine 1.029 [facility] Squam Epithel, UA 3-5 3 - 5 /[HPF] [facility] Urobilinogen, Urine 2 mg/dL Abnormal Normal (0-1) [facility] WBC, UA 11-25 Abnormal 0 - 5 /[HPF] [facility] XR CHEST PORTABLEon 12-25-19 21 [facility] Work Phone: [facility] Work Phone: Radiology Study observation (narrative) [facility] Work Phone: Arterial Blood Gaseson 12-23 CO2 [Moles/Vol] 28.5 mmol/L High 23.0-27.0 [facility] Comment on above: Performed By: #### A BG ####[facility] [place] [address] HCO3 (Bld) [Moles/Vol] 27.2 mmol/L High 21.0-25.0 [facility] Comment on above: Performed By: #### A BG ####[facility] [place] [address] Hemoglobin (Bld) [Mass/Vol] 6.6 g/dL Normal ScreenOnly [facility] Comment on above: Performed By: #### A BG ####[address] [place], [place] Oxygen (Bld) [Partial pressure] 115.0 mm[Hg] High 80.0-100.0 [facility] Comment on above: Performed By: #### A BG ####[address] [place], [place] Oxygen saturation in Blood 98.2 % Normal 95.0-100.0 [facility] Comment on above: Performed By: #### A BG ####[address] [place], [place] pCO2 42.7 mm[Hg] Normal 35.0-45.0 [facility] Comment on above: Performed By: #### A BG ####[address] pH 7.422 Normal 7.350-7.450 [facility] Comment on above: Performed By: #### A BG ####[address] [address] [place], [place] Std Base Excess 2.5 mmol/L Normal -3.0-3.0 [facility] Comment on above: Performed By: #### A BG ####[address] [place], [place] FIO2 No data Normal [facility] Comment on above: Performed By: #### A BG ####[address] BLOOD GAS, ARTERIALon 2020 Base Excess, Arterial 2.5 mmol/L -3.0 - 3.0 mmol/L [facility] CO2 [Moles/Vol] 28.5 mmol/L High 23.0 - 27.0 mmol/L [facility] FIO2 Arterial No data [facility] HCO3 (Bld) [Moles/Vol] 27.2 mmol/L High 21.0 - 25.0 mmol/L [facility] Hemoglobin (Bld) [Mass/Vol] 6.6 g/dL ScreenOnly [facility] Interpretation and review of laboratory results Abnormal [facility] Oxygen saturation in Blood 98.2 % 95.0 - 100.0 % [facility] pCO2, Arterial 42.7 mm[Hg] 35.0 - 45.0 mm[Hg] [facility] pH, Arterial 7.422 [facility] pO2, Arterial 115.0 mm[Hg] High 80.0 - 100.0 mm[Hg] [facility] Basic Metabolic Panelon 11-0 -2020 Calcium [Mass/Vol] 8.2 mg/dL Low 8.4-10.4 [facility] Comment on above: Performed By: #### B MP3, HEMOG, MG3 ####[address] [place] [address] Glucose [Mass/Vol] 130 mg/dL High 70-100 [facility] Comment on above: Performed By: #### B MP3, HEMOG, MG3 ####[address] [place] [address] Urea nitrogen [Mass/Vol] 18 mg/dL Normal 9-20 [facility] Comment on above: Performed By: #### B MP3, HEMOG, MG3 ####[facility] [id number] [place] [address] Anion gap [Moles/Vol] 2 mmol/L Low 3-13 [facility] Comment on above: Performed By: #### B MP3, HEMOG, MG3 ####[facility] [id number] [place] [address] CO2 [Moles/Vol] 25 mmol/L Normal 22-30 [facility] Comment on above: Performed By: #### B MP3, HEMOG, MG3 ####[facility] [id number] [facility] [place] [address] Creatinine [Mass/Vol] 0.60 mg/dL Normal 0.52-1.25 [facility] Comment on above: Performed By: #### B MP3, HEMOG, MG3 ####[address] [facility] [place] [address] eGFR OTHER > 90.0 Normal >60 [facility] Comment on above: Result Comment: KDIG O guidelines provide the following GFR categories:Stage GFR(ml/min/1.73 m2) TermsG1 >=90 Normal or highG2 60-89 Mildly decreased*G3a 45-59 Mildly to moderately [id number] 30-44 Moderately to severely decreasedG4 15-29 Severely [...] secretion. Performed By: #### Jacek ALBRIGHT3YVONNEOG MG3 ####[facility] [address] GFR/1.73 sq M.predicted among blacks MDRD (S/P/Bld) [Vol rate/Area] mL/min/{1.73_m2} Normal >60 [facility] Comment on above: Performed By: #### Jacek ALBIRGHT3YVONNEOG MG3 ####[facility] [address] [place], [place] Chloride [Moles/Vol] 117 mmol/L High 98-107 [facility] Comment on above: Performed By: #### Jacek ALBRIGHT3 HEMOG, MG3 ####[facility] [id number] [place], [place] Potassium [Moles/Vol] 3.9 mmol/L Normal 3.5-5.1 [facility] Comment on above: Performed By: #### Jacek ALBRIGHT3 HEMOG, MG3 ####[facility] [address] [place], [place] Sodium [Moles/Vol] 144 mmol/L Normal 135-145 [facility] Comment on above: Performed By: #### Jacek MP3, HEMOG, MG3 ####[facility] [id number] [place], [place] Anion gap [Moles/Vol] 2 mmol/L Low 3 - 13 mmol/L [facility] Calcium [Mass/Vol] 8.2 mg/dL Low 8.4 - 10. 4 mg/dL [facility] Chloride [Moles/Vol] 117 mmol/L High 98 - 10 7 mmol/L [facility] CO2 [Moles/Vol] 25 mmol/L 22 - 30 mmol/L [facility] Creatinine [Mass/Vol] 0.6 mg/dL 0.52 - 1.25 mg/dL [facility] EGFR IF NonAfrican Burundian >90.0 >60 mL/min [facility] GFR/1.73 sq M.predicted [...] 10*6/uL Low 3.80 - 5.2 0 10*6/uL [facility] WBC (Bld) [#/Vol] 14.5 10*3/uL High 3.6 - 10.7 10*3/uL [facility] Hemoglobin AND Hematocriton 12-23-2020 Hematocrit (Bld) [Volume fraction] 28.0 % Low 35.0-47.0 [facility] Comment on above: Performed By: #### H GHCT ####[address] [place], [place] Hemoglobin (Bld) [Mass/Vol] 9.3 g/dL Low 11.7-16.0 [facility] Comment on above: Performed By: #### H GHCT ####[address] [place], [place] Hemoglobin and Hematocrit, B loodon 12-23-2020 Hematocrit (Bld) [Volume fraction] 28.0 % Low 35.0 - 47.0 % [facility] Hemoglobin.gastrointe stinal spec 1 Ql (Stl) 9.3 g/dL Low 11.7 - 16.0 g/dL [facility] Interpretation and review of laboratory results Abnormal [facility] Hemogramon 12-23-2020 Erythrocyte distribution width (RBC) [Ratio] 14.7 % High 11.5-14.5 [facility] Comment on above: Performed By: #### B MP3, HEMOG, MG3 ####[address] [place], [place] Hematocrit (Bld) [Volume fraction] 20.0 % Low 35.0-47.0 [facility] Comment on above: Performed By: #### B MP3, HEMOG, MG3 ####[address] [place], [place] Hemoglobin (Bld) [Mass/Vol] 6.6 g/dL Critically low 11.7-16.0 [facility] Comment on above: Result Comment: REPE ATED Performed By: #### B MP3, HEMOG, MG3 ####[address] [place], [place] MCH (RBC) [Entitic mass] 29.9 pg Normal 26.0-34.0 [facility] Comment on above: Performed By: #### Jacek HORNER HEMOG, MG3 ####[address] [place], [place] MCHC 33.2 % Normal 32.0-36.0 [facility] Comment on above: Performed By: #### Jacek ALBRIGHT3, HEMOG, MG3 ####[address] [place], [place] MCV (RBC) [Entitic vol] 90.0 fL Normal 79.0-98.0 [facility] Comment on above: Performed By: #### Jacek HORNER HEMOG, MG3 ####[address] Platelet mean volume (Bld) [Entitic vol] 9.1 fL Normal 7.4-10.4 [facility] Comment on above: Performed By: #### Jacek HORNER HEMOG, MG3 ####[address] Platelets (Bld) [#/Vol] 238 10*3/uL Normal 140-440 [facility] Comment on above: Performed By: #### Jacek HORNER, HEMOG, MG3 ####[address] RBC (Bld) [#/Vol] 2.22 10*6/uL Low 3.80-5.20 [facility] Comment on above: Performed By: #### Jacek MP3, HEMOG, MG3 ####[address] [place], [place] WBC (Bld) [#/Vol] 14.5 10*3/uL High 3.6-10.7 [facility] Comment on above: Performed By: #### Jacek MP3, HEMOG, MG3 ####[address] Leukodepleted Red Cellson Leukodepleted Red Cells Normal [facility] Comment on above: Performed By: #### T SGL ####[facility]#### LRC ####[address] [address] Magnesiumon 12-23-2020 Magnesium [Mass/Vol] 2.2 mg/dL Normal 1.6-2.3 [facility] Comment on above: Performed By: #### B MP3, HEMOG, MG3 ####[address] [place] [address] Magnesium [Mass/Vol] 2.2 mg/dL 1.6 - 2 .3 mg/dL [facility] Panel Informationon 12-23 Radiology Study observation (narrative) [facility] Work Phone: [phone] [facility] Phosphoruson 12-23-2020 Phosphate [Mass/Vol] 2.7 mg/dL Normal 2.5-4.5 [facility] Comment on above: Performed By: #### P HOS3 ####[address] [place] [address] XR ABDOMEN (KUB) (SINGLE AP VIEW)on 12-23-2020 [facility] Work Phone: [facility] Work Phone: XR CHEST PORTABLEon 12-24-19 [facility] Work Phone: [facility] Work Phone: Arterial Blood Gaseson 12-22 FIO2 No data Normal [facility] Comment on above: Performed By: #### H EMOG, BMP3M, ICA, ABG ####[address] [place] [address] CO2 [Moles/Vol] 23.7 mmol/L Normal 23.0-27.0 [facility] Comment on above: Performed By: #### H EMOG, BMP3M, ICA, ABG ####[address] [place] [address] HCO3 (Bld) [Moles/Vol] 22.2 mmol/L Normal 21.0-25.0 [facility] Comment on above: Performed By: #### H EMOG, BMP3M, ICA, ABG ####[address] Hemoglobin (Bld) [Mass/Vol] 6.8 g/dL Normal ScreenOnly [facility] Comment on above: Performed By: #### H EMOG, BMP3M, ICA, ABG ####[address] Oxygen (Bld) [Partial pressure] 121.7 mm[Hg] High 80.0-100.0 [facility] Comment on above: Performed By: #### H EMOG, BMP3M, ICA, ABG ####[address] Oxygen saturation in Blood 98.1 % Normal 95.0-100.0 [facility] Comment on above: Performed By: #### H EMOG, BMP3M, ICA, ABG ####[address] pCO2 48.4 mm[Hg] High 35.0-45.0 [facility] Comment on above: Performed By: #### H EMOG, BMP3M, ICA, ABG ####[address] pH 7.280 Low 7.350-7.450 [facility] Comment on above: Performed By: #### H EMOG, BMP3M, ICA, ABG ####[address] Std Base Excess -4.2 mmol/L Low -3.0-3.0 [facility] Comment on above: Performed By: #### H EMOG, BMP3M, ICA, ABG ####[address] CO2 [Moles/Vol] 24.0 mmol/L Normal 23.0-27.0 [facility] Comment on above: Performed By: #### H EMDMiguel Ángel ABG, BMP3 ####[address] HCO3 (Bld) [Moles/Vol] 23.0 mmol/L Normal 21.0-25.0 [facility] Comment on above: Performed By: #### H EMDMiguel Ángel ABG, BMP3 ####[address] Hemoglobin (Bld) [Mass/Vol] 9.5 g/dL Normal ScreenOnly [facility] Comment on above: Performed By: #### H CURLY ABG, BMP3 ####[address] Oxygen (Bld) [Partial pressure] 84.0 mm[Hg] Normal 80.0-100.0 [facility] Comment on above: Performed By: #### H CURLY ABG, BMP3 ####[address] Oxygen saturation in Blood 96.7 % Normal 95.0-100.0 [facility] Comment on above: Performed By: #### H CURLY ABG, BMP3 ####[address] pCO2 32.4 mm[Hg] Low 35.0-45.0 [facility] Comment on above: Performed By: #### H CURLY ABG, BMP3 ####[address] pH 7.469 High 7.350-7.450 [facility] Comment on above: Performed By: #### H EMDMiguel Ángel, ABG, BMP3 ####[address] Std Base Excess -0.3 mmol/L Normal -3.0-3.0 [facility] Comment on above: Performed By: #### H EMDF, ABG, BMP3 ####[address] [place] [address] FIO2 No data Normal [facility] Comment on above: Performed By: #### H EMDF, ABG, ZACH3 ####[address] [address] BLOOD GAS, ARTERIALon 2020 Base Excess, Arterial -4.2 mmol/L Low -3.0 - 3.0 mmol/L [facility] CO2 [Moles/Vol] 23.7 mmol/L 23.0 - 27.0 mmol/L [facility] FIO2 Arterial No data [facility] HCO3 (Bld) [Moles/Vol] 22.2 mmol/L 21.0 - 25.0 mmol/L [facility] Hemoglobin (Bld) [Mass/Vol] 6.8 g/dL ScreenOnly [facility] Oxygen saturation in Blood 98.1 % 95.0 [...] [facility] Hemoglobin (Bld) [Mass/Vol] 9.5 g/dL ScreenOnly [facility] Interpretation and review of laboratory results Abnormal [facility] Oxygen saturation in Blood 96.7 % 95.0 - 100.0 % [facility] pCO2, Arterial 32.4 mm[Hg] Low 35.0 - 45.0 mm[Hg] [facility] pH, Arterial 7.469 High [facility] pO2, Arterial 84.0 mm[Hg] 80.0 - 100.0 mm[Hg] [facility] Basic Metabolic Panelon Anion gap [Moles/Vol] 5 mmol/L Normal 3-13 [facility] Comment on above: Performed By: #### H EMOG, BMP3M, ICA, ABG ####[address] [place], [place] Calcium [Mass/Vol] 7.5 mg/dL Low 8.4-10.4 [facility] Comment on above: Performed By: #### H EMOG, BMP3M, ICA, ABG ####[address] [place], [place] CO2 [Moles/Vol] 22 mmol/L Normal 22-30 [facility] Comment on above: Performed By: #### H EMOG, BMP3M, ICA, ABG ####[address] [place], [place] Glucose [Mass/Vol] 109 mg/dL High 70-100 [facility] Comment on above: Performed By: #### H EMOG, BMP3M, ICA, ABG ####[address] [place], [place] Urea nitrogen [Mass/Vol] 15 mg/dL Normal 9-20 [facility] Comment on above: Performed By: #### H EMOG, BMP3M, ICA, ABG ####[address] [place], [place] Creatinine [Mass/Vol] 0.62 mg/dL Normal 0.52-1.25 [facility] Comment on above: Performed By: #### H EMOG, BMP3M, ICA, ABG ####[address] [place], [place] eGFR OTHER > 90.0 Normal >60 [facility] Comment on above: Result Comment: KDIG O guidelines provide the following GFR categories:Stage GFR(ml/min/1.73 m2) TermsG1 >=90 Normal or highG2 60-89 Mildly decreased*G3a 45-59 Mildly to moderately uuduedfryQ5p 30-44 Moderately to severely decreasedG4 15-29 Severely [...] By: #### H ZACH MAO3M, ICA, ABG ####[address] [place], [place] GFR/1.73 sq M.predicted among blacks MDRD (S/P/Bld) [Vol rate/Area] mL/min/{1.73_m2} Normal >60 [facility] Comment on above: Performed By: #### H DAYLIN, BMP3M, ICA, ABG ####[address] [place], [place] Chloride [Moles/Vol] 118 mmol/L High 98-107 [facility] Comment on above: Performed By: #### H DAYLIN, BMP3M, ICA, ABG ####[address] Potassium [Moles/Vol] 4.3 mmol/L Normal 3.5-5.1 [facility] Comment on above: Performed By: #### H DAYLIN, BMP3M, ICA, ABG ####[address] [place] [address] Sodium [Moles/Vol] 145 mmol/L Normal 135-145 [facility] Comment on above: Performed By: #### H EMOJoi, BMP3M, ICA, ABG ####[address] [place] [address] Anion gap [Moles/Vol] 1 mmol/L Low 3-13 [facility] Comment on above: Performed By: #### H EMDF ABJoi, BMP3 ####[address] [place] [address] Calcium [Mass/Vol] 7.5 mg/dL Low 8.4-10.4 [facility] Comment on above: Performed By: #### H CURLY ABG, BMP3 ####[facility] [place] [address] CO2 [Moles/Vol] 23 mmol/L Normal 22-30 [facility] Comment on above: Performed By: #### H EMDF, ABG, BMP3 ####[facility] [place] [address] Glucose [Mass/Vol] 113 mg/dL High 70-100 [facility] Comment on above: Performed By: #### H EMDF, ABG, BMP3 ####[address] [place] [address] Urea nitrogen [Mass/Vol] 15 mg/dL Normal 9-20 [facility] Comment on above: Performed By: #### H EMDF, ABG, BMP3 ####[address] [place] [address] Creatinine [Mass/Vol] 0.65 mg/dL Normal 0.52-1.25 [facility] Comment on above: Performed By: #### H EMDF, ABG, BMP3 ####[address] [place] [address] eGFR OTHER > 90.0 Normal >60 [facility] Comment on above: Result Comment: KDIG O guidelines provide the following GFR categories:Stage GFR(ml/min/1.73 m2) TermsG1 >=90 Normal or highG2 60-89 Mildly decreased*G3a 45-59 Mildly to moderately hhsczogqhO6o 30-44 Moderately to severely decreasedG4 15-29 Severely [...] Performed By: #### H EMDF, ABG, BMP3 ####[facility] [address] [place], [place] GFR/1.73 sq M.predicted among blacks MDRD (S/P/Bld) [Vol rate/Area] mL/min/{1.73_m2} Normal >60 [facility] Comment on above: Performed By: #### H JIGAR RAWLS, BMP3 ####[facility] [place], [place] Chloride [Moles/Vol] 117 mmol/L High 98-107 [facility] Comment on above: Performed By: #### H JIGAR RAWLS, BMP3 ####[address] [place], [place] Potassium [Moles/Vol] 3.4 mmol/L Low 3.5-5.1 [facility] Comment on above: Performed By: #### H JIGAR RAWLS, BMP3 ####[address] [place], [place] Sodium [Moles/Vol] 141 mmol/L Normal 135-145 [facility] Comment on above: Performed By: #### H JIGAR RAWLS, BMP3 ####[address] [place], [place] Anion gap [Moles/Vol] 1 mmol/L Low 3 - 13 mmol/L [facility] Calcium [Mass/Vol] 7.5 mg/dL Low 8.4 - 10. 4 mg/dL [facility] Chloride [Moles/Vol] 117 mmol/L High 98 - 10 7 mmol/L [facility] CO2 [Moles/Vol] 23 mmol/L 22 - 30 mmol/L [facility] Creatinine [Mass/Vol] 0.65 mg/dL 0.52 - 1.25 mg/dL [facility] EGFR IF NonAfrican Burundian >90.0 >60 mL/min [facility] GFR/1.73 sq M.predicted among blacks MDRD (S/P/Bld) [Vol rate/Area] mL/min/{1.73_m2} >60 mL/min [facility] Glucose [Mass/Vol] 113 mg/dL High 70 - 100 mg/dL [facility] Interpretation and review of laboratory results Abnormal [facility] Potassium [Moles/Vol] 3.4 mmol/L Low 3.5 - 5.1 mmol/L [facility] Sodium [Moles/Vol] 141 mmol/L 135 - 145 mmol/L [facility] Urea nitrogen (BldV) [Mass/Vol] 15 mg/dL 9 - 20 mg/dL [facility] Basic Metabolic Panel w/ Ref ruslan to MGon 12-22-2020 Anion gap [Moles/Vol] 5 mmol/L 3 - 13 mmol/L [facility] Calcium [Mass/Vol] 7.5 mg/dL Low 8.4 - 10. 4 mg/dL [facility] Chloride [Moles/Vol] 118 mmol/L High 98 - 10 7 mmol/L [facility] CO2 [Moles/Vol] 22 mmol/L 22 - 30 mmol/L [facility] Creatinine [Mass/Vol] 0.62 mg/dL 0.52 - 1.25 mg/dL [facility] EGFR IF NonAfrican Burundian >90.0 >60 mL/min [facility] GFR/1.73 sq M.predicted among blacks MDRD (S/P/Bld) [Vol rate/Area] mL/min/{1.73_m2} >60 mL/min [facility] Glucose [Mass/Vol] 109 mg/dL High 70 - 100 mg/dL [facility] Interpretation and review of laboratory results Abnormal [facility] Potassium [Moles/Vol] 4.3 mmol/L 3.5 - 5.1 mmol/L [facility] Sodium [Moles/Vol] 145 mmol/L 135 - 145 mmol/L [facility] Urea nitrogen (BldV) [Mass/Vol] 15 mg/dL 9 - 20 mg/dL [facility] CBCon 12-22-2020 Hematocrit (Bld) [...] 15.4 10*3/uL High 3.6 - 10.7 10*3/uL [facility] CR Pelvis Complete Minimum 3 Viewson 12-22-2020 CR Pelvis Complete Minimum 3 Views Normal [facility] CR Tibia/Fibula 2 Views Righ ton 12-22-2020 CR Tibia/Fibula 2 Views Right Normal [facility] CT HEAD WO CONTRASTon 2020 [facility] Work Phone: [facility] Work Phone: CT Head or Brain w/o Contras ton 12-22-2020 CT Head or Brain w/o Contrast Normal [facility] Calcium, Ionizedon Ionized Ca 4.20 mg/dL Low 4.30 - 5.20 mg/dL [facility] pH (Bld) 7.32 [pH] [facility] Calcium,Ionizedon 12-22-2020 Ionized Ca,Measured 4.20 mg/dL Low 4.30-5.20 [facility] Comment on above: Performed By: #### H EMOJoi, BMP3M, ICA, ABG ####[facility] [place] [address] pH, Ionized Calcium 7.32 Normal 7.31-7.46 [facility] Comment on above: Performed By: #### H EMOG, BMP3M, ICA, ABG ####[address] HCG Qualitative, Serumon hCG Qual Negative [facility] Hemogramon 12-22-2020 Erythrocyte distribution width (RBC) [Ratio] 14.9 % High 11.5-14.5 [facility] Comment on above: Performed By: #### H EMOG, BMP3M, ICA, ABG ####[address] Hematocrit (Bld) [Volume fraction] 22.9 % Low 35.0-47.0 [facility] Comment on above: Performed By: #### H EMOG, BMP3M, ICA, ABG ####[address] Hemoglobin (Bld) [Mass/Vol] 7.4 g/dL Low 11.7-16.0 [facility] Comment on above: Performed By: #### H EMOG, BMP3M, ICA, ABG ####[address] MCH (RBC) [Entitic mass] 29.5 pg Normal 26.0-34.0 [facility] Comment on above: Performed By: #### H EMOG, BMP3M, ICA, ABG ####[address] MCHC 32.2 % Normal 32.0-36.0 [facility] Comment on above: Performed By: #### H EMOG, BMP3M, ICA, ABG ####[address] MCV (RBC) [Entitic vol] 91.5 fL Normal 79.0-98.0 [facility] Comment on above: Performed By: #### H EMOG, BMP3M, ICA, ABG ####[address] Platelet mean volume (Bld) [Entitic vol] 8.7 fL Normal 7.4-10.4 [facility] Comment on above: Performed By: #### H EMOG, BMP3M, ICA, ABG ####[id number] [place], [place] Platelets (Bld) [#/Vol] 215 10*3/uL Normal 140-440 [facility] Comment on above: Performed By: #### H EMOG, BMP3M, ICA, ABG ####[address] RBC (Bld) [#/Vol] 2.51 10*6/uL Low 3.80-5.20 [facility] Comment on above: Performed By: #### H EMOG, BMP3M, ICA, ABG ####[address] WBC (Bld) [#/Vol] 18.1 10*3/uL High 3.6-10.7 [facility] Comment on above: Performed By: #### H EMOG, BMP3M, ICA, ABG ####[address] Hemogram w/ Autodiffon 12-22 Abs Baso Cnt 0.1 10*3/uL Normal 0.0-0.2 [facility] Comment on above: Performed By: #### H EMDF, ABG, BMP3 ####[id number] [place], [place] Abs Neutrophile Cnt 13.6 10*3/uL High 1.8-7.0 [facility] Comment on above: Performed By: #### H EMDF, ABG, BMP3 ####[address] Basophils/100 WBC (Bld) 0.3 % Normal 0.0-2.0 [facility] Comment on above: Performed By: #### H EMDF, ABG, BMP3 ####[address] Eosinophils (Bld) [#/Vol] 0.0 10*3/uL Normal 0.0-0.5 [facility] Comment on above: Performed By: #### H CURLY ABJoi, BMP3 ####[address] Eosinophils/100 WBC (Bld) 0.0 % Low 1.0-6.0 [facility] Comment on above: Performed By: #### H EMDMiguel Ángel, ABG, BMP3 ####[address] Erythrocyte distribution width (RBC) [Ratio] 14.7 % High 11.5-14.5 [facility] Comment on above: Performed By: #### H EMDF, ABG, BMP3 ####[address] Granulocytes/100 WBC (Bld) 88.4 % High 40.0-80.0 [facility] Comment on above: Performed By: #### H EMDF, ABG, BMP3 ####[address] Hematocrit (Bld) [Volume fraction] 26.8 % Low 35.0-47.0 [facility] Comment on above: Performed By: #### H EMDF, ABG, BMP3 ####[address] Hemoglobin (Bld) [Mass/Vol] 9.0 g/dL Low 11.7-16.0 [facility] Comment on above: Performed By: #### H EMDF, ABG, BMP3 ####[address] Lymphocytes (Bld) [#/Vol] 1.1 10*3/uL Normal 1.0-4.3 [facility] Comment on above: Performed By: #### H EMDF, ABG, BMP3 ####[address] Lymphocytes/100 WBC (Bld) 6.8 % Low 20.0-40.0 [facility] Comment on above: Performed By: #### H JIGAR RAWLS, BMP3 ####[address] MCH (RBC) [Entitic mass] 29.8 pg Normal 26.0-34.0 [facility] Comment on above: Performed By: #### H JIGAR RAWLS, BMP3 ####[address] MCHC 33.6 % Normal 32.0-36.0 [facility] Comment on above: Performed By: #### H JIGAR RAWLS, BMP3 ####[address] MCV (RBC) [Entitic vol] 88.7 fL Normal 79.0-98.0 [facility] Comment on above: Performed By: #### H JIGAR RAWLS, BMP3 ####[address] Monocytes (Bld) [#/Vol] 0.7 10*3/uL Normal 0.0-0.8 [facility] Comment on above: Performed By: #### H JIGAR RAWLS, BMP3 ####[address] Monocytes/100 WBC (Bld) 4.5 % Normal 2.0-10.0 [facility] Comment on above: Performed By: #### H CURLY ABJoi, BMP3 ####[address] Platelet mean volume (Bld) [Entitic vol] 9.0 fL Normal 7.4-10.4 [facility] Comment on above: Performed By: #### H EMDMiguel Ángel ABG, BMP3 ####[address] Platelets (Bld) [#/Vol] 217 10*3/uL Normal 140-440 [facility] Comment on above: Performed By: #### H CURLY ABG, BMP3 ####[address] [place], [place] RBC (Bld) [#/Vol] 3.02 10*6/uL Low 3.80-5.20 [facility] Comment on above: Performed By: #### H EMDF, ABG, BMP3 ####[address] [place], [place] WBC (Bld) [#/Vol] 15.4 10*3/uL High 3.6-10.7 [facility] Comment on above: Performed By: #### H EMDF, ABG, BMP3 ####[address] Laboratory - Blood bankon ABO and Rh group Nom (Bld) 6200 [facility] No Panel Informationon 12-22 Radiology Study observation (narrative) [facility] Work Phone: Dispense Status Blood Bank transfused [facility] Expiration Date [id number] [facility] Product Code Blood Bank [id number] [facility] Interpretation and review of laboratory results Abnormal [facility] Op Noteon 12-22-2020 Op Note Normal [facility] PREPARE RBC (CROSSMATCH)on 02-22-2020 Blood product unit ID (Dose) [#] [id number] [facility] Blood product unit ID (Dose) [#] [id number] [facility] Procalcitoninon 12-22-2020 Procalcitonin 0.29 ng/mL High 0.00-0.09 [facility] Comment on above: Performed By: #### P MICHELLE ####[address] Interpretation See Below Normal [facility] Work Phone: Comment on above: Result Comment: PCT <0.50 = Low risk of severe sepsis and/or septic shock.PCT >2.00 = High risk of severe sepsis and/or septic shock. Performed By: #### P MICHELLE ####[address] [place] [address] Interpretation and review of laboratory results Abnormal [facility] Work Phone: Procalcitonin 0.29 ng/mL High 0.00 - 0.09 ng/mL [facility] Work Phone: [facility] Work Phone: TS GELon 12-22-2020 TS GEL ABO Group: A Rh, Gel: POS Antibody Screen Gel: NEG Normal [facility] Comment on above: Performed By: #### T SGL ####[facility]#### LRC ####[address] [address] TYPE AND SCREENon 12-22-2020 ABO Grouping A [facility] Rh Type Positive [facility] XR PELVIS (MIN 3 VIEWS)on [facility] RAD [facility] Work Phone: XR PELVIS (MIN 3 VIEWS)Order ed By: Cruz Velasquez on 12-22-2020 [facility] Work Phone: XR TIBIA FIBULA RIGHT (2 VIE WS)on 12-22-2020 [facility] RAD [facility] Work Phone: [facility] Work Phone: hCG Qual Pregon 12-22-2020 hCG Qual Preg Negative Normal [facility] Comment on above: Result Comment: Refe rence Range: NEGATIVEEffective 04/30/2019, the reference interval for thequalitative test has been updated. This test detectshCG at concentrations of 10 mIU/L or greater in serum. Performed By: #### Q WAL2 ####[address] [place] [address] Arterial Blood Gaseson 12-21 CO2 [Moles/Vol] 20.9 mmol/L Low 23.0-27.0 [facility] Comment on above: Performed By: #### A BG, BMP3, HEMDF ####[address] [place], [place] HCO3 (Bld) [Moles/Vol] 19.9 mmol/L Low 21.0-25.0 [facility] Comment on above: Performed By: #### A BG, BMP3, HEMDF ####[address] [place], [place] Hemoglobin (Bld) [Mass/Vol] 10.7 g/dL Normal ScreenOnly [facility] Comment on above: Performed By: #### A BG, BMP3, HEMDF ####[address] Oxygen (Bld) [Partial pressure] 94.9 mm[Hg] Normal 80.0-100.0 [facility] Comment on above: Performed By: #### A BG, BMP3, HEMDF ####[address] Oxygen saturation in Blood 97.4 % Normal 95.0-100.0 [facility] Comment on above: Performed By: #### A BG, BMP3, HEMDF ####[address] pCO2 34.1 mm[Hg] Low 35.0-45.0 [facility] Comment on above: Performed By: #### A BG, BMP3, HEMDF ####[address] pH 7.384 Normal 7.350-7.450 [facility] Comment on above: Performed By: #### A BG, BMP3, HEMDF ####[address] Std Base Excess -4.5 mmol/L Low -3.0-3.0 [facility] Comment on above: Performed By: #### A BG, BMP3, HEMDF ####[address] FIO2 No data Normal [facility] Comment on above: Performed By: #### A BG, BMP3, HEMDF ####[address] [address] BLOOD GAS, ARTERIALon 2020 Base Excess, Arterial -4.5 mmol/L Low -3.0 - 3.0 mmol/L [facility] CO2 [Moles/Vol] 20.9 mmol/L Low 23.0 - 27.0 mmol/L [facility] FIO2 Arterial No data [facility] HCO3 (Bld) [Moles/Vol] 19.9 mmol/L Low 21.0 - 25.0 mmol/L [facility] Hemoglobin (Bld) [Mass/Vol] 10.7 g/dL ScreenOnly [facility] Interpretation and review of laboratory results Abnormal [facility] Oxygen saturation in Blood 97.4 % 95.0 - 100.0 % [facility] pCO2, Arterial 34.1 mm[Hg] Low 35.0 - 45.0 mm[Hg] [facility] pH, Arterial 7.384 [facility] pO2, Arterial 94.9 mm[Hg] 80.0 - 100.0 mm[Hg] [facility] Basic Metabolic Panelon Anion gap [Moles/Vol] 1 mmol/L Low 3-13 [facility] Comment on above: Performed By: #### A BG, BMP3, HEMDF ####[facility] [place], [place] Calcium [Mass/Vol] 7.4 mg/dL Low 8.4-10.4 [facility] Comment on above: Performed By: #### A BG, BMP3, HEMDF ####[facility] [place], [place] CO2 [Moles/Vol] 20 mmol/L Low 22-30 [facility] Comment on above: Performed By: #### A BG, BMP3, HEMDF ####[facility] [employer] [id number] [place], [place] Glucose [Mass/Vol] 120 mg/dL High 70-100 [facility] Comment on above: Performed By: #### A BG, BMP3, HEMDF ####[address] [place], [place] Urea nitrogen [Mass/Vol] 17 mg/dL Normal 9-20 [facility] Comment on above: Performed By: #### A BG, BMP3, HEMDF ####[facility] [place], [place] Creatinine [Mass/Vol] 0.67 mg/dL Normal 0.52-1.25 [facility] Comment on above: Performed By: #### A BG, BMP3, HEMDF ####[address] [place], [place] eGFR OTHER > 90.0 Normal >60 [facility] Comment on above: Result Comment: KDIG O guidelines provide the following GFR categories:Stage GFR(ml/min/1.73 m2) TermsG1 >=90 Normal or highG2 60-89 Mildly decreased*G3a 45-59 Mildly to moderately nvamogeliO0m 30-44 Moderately to severely decreasedG4 15-29 Severely [...] Performed By: #### A BG, BMP3, HEMDF ####[address] [place], [place] GFR/1.73 sq M.predicted among blacks MDRD (S/P/Bld) [Vol rate/Area] mL/min/{1.73_m2} Normal >60 [facility] Comment on above: Performed By: #### A BG, BMP3, HEMDF ####[facility] [employer] [id number] [place], [place] Chloride [Moles/Vol] 119 mmol/L High 98-107 [facility] Comment on above: Performed By: #### A BG, BMP3, HEMDF ####[facility] [employer] [id number] [place], [place] Potassium [Moles/Vol] 3.6 mmol/L Normal 3.5-5.1 [facility] Comment on above: Performed By: #### A BG, BMP3, HEMDF ####[facility] [place], [place] Sodium [Moles/Vol] 141 mmol/L Normal 135-145 [facility] Comment on above: Performed By: #### A BG, BMP3, HEMDF ####[facility] [place], [place] Anion gap [Moles/Vol] 1 mmol/L Low 3 - 13 mmol/L [facility] Calcium [Mass/Vol] 7.4 mg/dL Low 8.4 - 10. 4 mg/dL [facility] Chloride [Moles/Vol] 119 mmol/L High 98 - 10 7 mmol/L [facility] CO2 [Moles/Vol] 20 mmol/L Low 22 - 30 mmol/L [facility] Creatinine [Mass/Vol] 0.67 mg/dL 0.52 - 1.25 mg/dL [facility] EGFR IF NonAfrican Bur[place]ian >90.0 >60 mL/min [facility] GFR/1.73 sq M.predicted among blacks MDRD (S/P/Bld) [Vol rate/Area] mL/min/{1.73_m2} >60 mL/min [facility] Glucose [Mass/Vol] 120 mg/dL High 70 - 100 mg/dL [facility] Interpretation and review of laboratory results Abnormal [facility] Potassium [Moles/Vol] 3.6 mmol/L 3.5 - 5.1 mmol/L [facility] Sodium [Moles/Vol] 141 mmol/L 135 - 145 mmol/L [facility] Urea nitrogen (BldV) [Mass/Vol] 17 mg/dL 9 - 20 mg/dL [facility] CBC Auto Differentialon 11-0 Absolute Baso # [...] 15.7 10*3/uL High 3.6 - 10.7 10*3/uL [facility] Absolute Baso # 0.1 [...] 17.6 10*3/uL High 3.6 - 10.7 10*3/uL [facility] CR Chest Portableon 12-22-19 CR Chest Portable Normal [facility] CR Chest Portable Normal [facility] Hemogram w/ Autodiffon 12-21 Abs Baso Cnt 0.1 10*3/uL Normal 0.0-0.2 [facility] Comment on above: Performed By: #### H EMDF ####[address] Abs Neutrophile Cnt 13.5 10*3/uL High 1.8-7.0 [facility] Comment on above: Performed By: #### H EMDF ####[address] Basophils/100 WBC (Bld) 0.4 % Normal 0.0-2.0 [facility] Comment on above: Performed By: #### H EMDF ####[address] Eosinophils (Bld) [#/Vol] 0.0 10*3/uL Normal 0.0-0.5 [facility] Comment on above: Performed By: #### H EMDF ####[address] Eosinophils/100 WBC (Bld) 0.0 % Low 1.0-6.0 [facility] Comment on above: Performed By: #### H EMDF ####[address] Erythrocyte distribution width (RBC) [Ratio] 14.4 % Normal 11.5-14.5 [facility] Comment on above: Performed By: #### H EMDF ####[address] Granulocytes/100 WBC (Bld) 86.2 % High 40.0-80.0 [facility] Comment on above: Performed By: #### H EMDF ####[address] Hematocrit (Bld) [Volume fraction] 25.7 % Low 35.0-47.0 [facility] Comment on above: Performed By: #### H EMDF ####[address] Hemoglobin (Bld) [Mass/Vol] 8.5 g/dL Low 11.7-16.0 [facility] Comment on above: Performed By: #### H EMDF ####[address] Lymphocytes (Bld) [#/Vol] 1.5 10*3/uL Normal 1.0-4.3 [facility] Comment on above: Performed By: #### H EMDF ####[address] Lymphocytes/100 WBC (Bld) 9.5 % Low 20.0-40.0 [facility] Comment on above: Performed By: #### H EMDF ####[address] MCH (RBC) [Entitic mass] 29.4 pg Normal 26.0-34.0 [facility] Comment on above: Performed By: #### H EMDF ####[address] [place], [place] MCHC 33.2 % Normal 32.0-36.0 [facility] Comment on above: Performed By: #### H EMDF ####[address] MCV (RBC) [Entitic vol] 88.6 fL Normal 79.0-98.0 [facility] Comment on above: Performed By: #### H EMDF ####[address] Monocytes (Bld) [#/Vol] 0.6 10*3/uL Normal 0.0-0.8 [facility] Comment on above: Performed By: #### H EMDF ####[address] Monocytes/100 WBC (Bld) 3.9 % Normal 2.0-10.0 [facility] Comment on above: Performed By: #### H EMDF ####[address] Platelet mean volume (Bld) [Entitic vol] 9.0 fL Normal 7.4-10.4 [facility] Comment on above: Performed By: #### H EMDF ####[address] Platelets (Bld) [#/Vol] 176 10*3/uL Normal 140-440 [facility] Comment on above: Performed By: #### H EMDF ####[address] RBC (Bld) [#/Vol] 2.90 10*6/uL Low 3.80-5.20 [facility] Comment on above: Performed By: #### H EMDF ####[address] WBC (Bld) [#/Vol] 15.7 10*3/uL High 3.6-10.7 [facility] Comment on above: Performed By: #### H EMDF ####[address] Abs Baso Cnt 0.1 10*3/uL Normal 0.0-0.2 [facility] Comment on above: Performed By: #### A BG, BMP3, HEMDF ####[address] Abs Neutrophile Cnt 14.8 10*3/uL High 1.8-7.0 [facility] Comment on above: Performed By: #### A BG, BMP3, HEMDF ####[address] [place], [place] Basophils/100 WBC (Bld) 0.4 % Normal 0.0-2.0 [facility] Comment on above: Performed By: #### A BG, BMP3, HEMDF ####[address] [place], [place] Eosinophils (Bld) [#/Vol] 0.0 10*3/uL Normal 0.0-0.5 [facility] Comment on above: Performed By: #### A BG, BMP3, HEMDF ####[address] [place], [place] Eosinophils/100 WBC (Bld) 0.1 % Low 1.0-6.0 [facility] Comment on above: Performed By: #### A BG, BMP3, HEMDF ####[address] [place], [place] Erythrocyte distribution width (RBC) [Ratio] 15.0 % High 11.5-14.5 [facility] Comment on above: Performed By: #### A BG, BMP3, HEMDF ####[address] Granulocytes/100 WBC (Bld) 83.9 % High 40.0-80.0 [facility] Comment on above: Performed By: #### A BG, BMP3, HEMDF ####[address] Hematocrit (Bld) [Volume fraction] 29.7 % Low 35.0-47.0 [facility] Comment on above: Performed By: #### A BG, BMP3, HEMDF ####[address] Hemoglobin (Bld) [Mass/Vol] 10.1 g/dL Low 11.7-16.0 [facility] Comment on above: Performed By: #### A BG, BMP3, HEMDF ####[address] Lymphocytes (Bld) [#/Vol] 2.1 10*3/uL Normal 1.0-4.3 [facility] Comment on above: Performed By: #### A BG, BMP3, HEMDF ####[address] Lymphocytes/100 WBC (Bld) 12.0 % Low 20.0-40.0 [facility] Comment on above: Performed By: #### A BG BMP3, HEMDF ####[address] [place], [place] MCH (RBC) [Entitic mass] 30.0 pg Normal 26.0-34.0 [facility] Comment on above: Performed By: #### A BG BMP3, HEMDF ####[address] MCHC 33.9 % Normal 32.0-36.0 [facility] Comment on above: Performed By: #### A BG BMP3, HEMDF ####[address] MCV (RBC) [Entitic vol] 88.4 fL Normal 79.0-98.0 [facility] Comment on above: Performed By: #### A BG BMP3, HEMDF ####[address] Monocytes (Bld) [#/Vol] 0.6 10*3/uL Normal 0.0-0.8 [facility] Comment on above: Performed By: #### A BG, BMP3, HEMDF ####[address] Monocytes/100 WBC (Bld) 3.6 % Normal 2.0-10.0 [facility] Comment on above: Performed By: #### A BG, BMP3, HEMDF ####[address] Platelet mean volume (Bld) [Entitic vol] 9.3 fL Normal 7.4-10.4 [facility] Comment on above: Performed By: #### A BG, BMP3, HEMDF ####[address] Platelets (Bld) [#/Vol] 166 10*3/uL Normal 140-440 [facility] Comment on above: Performed By: #### A BG, BMP3, HEMDF ####[address] [place] [address] RBC (Bld) [#/Vol] 3.36 10*6/uL Low 3.80-5.20 [facility] Comment on above: Performed By: #### A BG, BMP3, HEMDF ####[address] [place] [address] WBC (Bld) [#/Vol] 17.6 10*3/uL High 3.6-10.7 [facility] Comment on above: Performed By: #### A BG, BMP3, HEMDF ####[address] [place] [address] Laboratory - Blood bankon ABO and Rh group Nom (Bld) 6200 [facility] Leukodepleted Red Cellson Leukodepleted Red Cells Normal [facility] Comment on above: Performed By: #### P RP, LRC, SDP, CR5 ####[address] [address]#### TSGL ####[facility] No Panel Informationon 12-21 Radiology Study observation (narrative) [facility] Work Phone: Dispense Status Blood Bank released [facility] Expiration Date [facility] Product Code Blood Bank [id number] [facility] PREPARE RBC (CROSSMATCH), 1 Unitson 12-21-2020 Blood product unit ID (Dose) [#] [id number] [facility] PREPARE RBC (CROSSMATCH), 2 Unitson 12-21-2020 Blood product unit ID (Dose) [#] [id number] [facility] Blood product unit ID (Dose) [#] [id number] [facility] Dispense Status Blood Bank transfused [facility] XR CHEST PORTABLEon 12-22-19 21 [facility] Work Phone: [facility] Work Phone: [facility] Work Phone: [facility] Work Phone: Arterial Blood Gaseson 12-20 CO2 [Moles/Vol] 19.9 mmol/L Low 23.0-27.0 [facility] Comment on above: Performed By: #### A BG ####[address] [place], [place] HCO3 (Bld) [Moles/Vol] 18.8 mmol/L Low 21.0-25.0 [facility] Comment on above: Performed By: #### A BG ####[address] [place], [place] Hemoglobin (Bld) [Mass/Vol] 7.7 g/dL Normal ScreenOnly [facility] Comment on above: Performed By: #### A BG ####[address] [place], [place] Oxygen (Bld) [Partial pressure] 104.5 mm[Hg] High 80.0-100.0 [facility] Comment on above: Performed By: #### A BG ####[address] [place], [place] Oxygen saturation in Blood 97.6 % Normal 95.0-100.0 [facility] Comment on above: Performed By: #### A BG ####[address] [place], [place] pCO2 35.4 mm[Hg] Normal 35.0-45.0 [facility] Comment on above: Performed By: #### A BG ####[address] [place], [place] pH 7.344 Low 7.350-7.450 [facility] Comment on above: Performed By: #### A BG ####[address] [place], [place] Std Base Excess -6.3 mmol/L Low -3.0-3.0 [facility] Comment on above: Performed By: #### A BG ####[address] [place], [place] FIO2 No data Normal [facility] Comment on above: Performed By: #### A BG ####[address] [place], [place] CO2 [Moles/Vol] 21.9 mmol/L Low 23.0-27.0 [facility] Comment on above: Performed By: #### A BG, HEMDF, BMP3 ####[address] [place] HCO3 (Bld) [Moles/Vol] 20.9 mmol/L Low 21.0-25.0 [facility] Comment on above: Performed By: #### A BG, HEMDF, BMP3 ####[address] Hemoglobin (Bld) [Mass/Vol] 7.5 g/dL Normal ScreenOnly [facility] Comment on above: Performed By: #### A BG, HEMDF, BMP3 ####[address] Oxygen (Bld) [Partial pressure] 88.0 mm[Hg] Normal 80.0-100.0 [facility] Comment on above: Performed By: #### A BG, HEMDF, BMP3 ####[address] Oxygen saturation in Blood 96.6 % Normal 95.0-100.0 [facility] Comment on above: Performed By: #### A BG, HEMDF, BMP3 ####[address] [place] pCO2 30.2 mm[Hg] Low 35.0-45.0 [facility] Comment on above: Performed By: #### A BG, HEMDF, BMP3 ####[address] pH 7.459 High 7.350-7.450 [facility] Comment on above: Performed By: #### A BG, HEMDF, BMP3 ####[address] [address] Std Base Excess -2.5 mmol/L Normal -3.0-3.0 [facility] Comment on above: Performed By: #### A AUGUSTINE CALL BMP3 ####[facility] [place] [address] FIO2 No data Normal [facility] Comment on above: Performed By: #### A AUGUSTINE CALL BMP3 ####[facility] [place] [address] BLOOD GAS, ARTERIALon 2020 Base Excess, Arterial -6.3 mmol/L Low -3.0 - 3.0 mmol/L [facility] CO2 [Moles/Vol] 19.9 mmol/L Low 23.0 - 27.0 mmol/L [facility] FIO2 Arterial No data [facility] HCO3 (Bld) [Moles/Vol] 18.8 mmol/L Low 21.0 - 25.0 mmol/L [facility] Hemoglobin (Bld) [Mass/Vol] 7.7 g/dL ScreenOnly [facility] Interpretation and review of laboratory results Abnormal [facility] Oxygen saturation in Blood 97.6 % 95.0 - 100.0 % [facility] pCO2, Arterial 35.4 mm[Hg] 35.0 - 45.0 mm[Hg] [facility] pH, Arterial 7.344 Low [facility] pO2, Arterial 104.5 mm[Hg] High 80.0 - 100.0 mm[Hg] [facility] Base Excess, Arterial -2.5 mmol/L -3.0 - 3.0 mmol/L [facility] CO2 [Moles/Vol] 21.9 mmol/L Low 23.0 - 27.0 mmol/L [facility] FIO2 Arterial No data [facility] HCO3 (Bld) [Moles/Vol] 20.9 mmol/L Low 21.0 - 25.0 mmol/L [facility] Hemoglobin (Bld) [Mass/Vol] 7.5 g/dL ScreenOnly [facility] Interpretation and review of laboratory results Abnormal [facility] Oxygen saturation in Blood 96.6 % 95.0 - 100.0 % [facility] pCO2, Arterial 30.2 mm[Hg] Low 35.0 - 45.0 mm[Hg] [facility] pH, Arterial 7.459 High [facility] pO2, Arterial 88.0 mm[Hg] 80.0 - 100.0 mm[Hg] [facility] Basic Metabolic Panelon 11-0 -2020 Anion gap [Moles/Vol] 2 mmol/L Low 3-13 [facility] Comment on above: Performed By: #### A BG, HEMDF, BMP3 ####[facility] [employer] [id number] [place], [place] Calcium [Mass/Vol] 7.8 mg/dL Low 8.4-10.4 [facility] Comment on above: Performed By: #### A BG, HEMDF, BMP3 ####[facility] [employer] [id number] [place], [place] CO2 [Moles/Vol] 21 mmol/L Low 22-30 [facility] Comment on above: Performed By: #### A BG, HEMDF, BMP3 ####[facility] [employer] [id number] [place] [address] Glucose [Mass/Vol] 138 mg/dL High 70-100 [facility] Comment on above: Performed By: #### A BG, HEMDF, BMP3 ####[facility] [id number] [place] [address] Urea nitrogen [Mass/Vol] 22 mg/dL High 9-20 [facility] Comment on above: Performed By: #### A BG, HEMDF, BMP3 ####[facility] [id number] [place] Creatinine [Mass/Vol] 1.01 mg/dL Normal 0.52-1.25 [facility] Comment on above: Performed By: #### A BG, HEMDF, BMP3 ####[facility] [id number] [place], [place] GFR/1.73 sq M.predicted among blacks MDRD (S/P/Bld) [Vol rate/Area] 75.8 mL/min/{1.73_m2} Normal >60 [facility] Comment on above: Performed By: #### A BG, HEMDF, BMP3 ####[place] [id number] [place], [place] GFR/1.73 sq M.predicted among non-blacks MDRD (S/P/Bld) [Vol rate/Area] 65.4 mL/min/{1.73_m2} Normal >60 [facility] Comment on above: Result Comment: KDIG O guidelines provide the following GFR categories:Stage GFR(ml/min/1.73 m2) TermsG1 >=90 Normal or highG2 60-89 Mildly decreased*G3a 45-59 Mildly to moderately [id number] 30-44 Moderately to severely decreasedG4 15-29 Severely [...] Performed By: #### A BG, HEMDF, BMP3 ####[place] [id number] [place], [place] Potassium [Moles/Vol] 3.9 mmol/L Normal 3.5-5.1 [facility] Comment on above: Performed By: #### A BG, HEMDF, BMP3 ####[address] [place], [place] Chloride [Moles/Vol] 115 mmol/L High 98-107 [facility] Comment on above: Performed By: #### A BG, HEMDF, BMP3 ####[address] [place], [place] Sodium [Moles/Vol] 139 mmol/L Normal 135-145 [facility] Comment on above: Performed By: #### A BG, HEMDF, BMP3 ####[address] [place], [place] Anion gap [Moles/Vol] 2 mmol/L Low 3 - 13 mmol/L [facility] Calcium [Mass/Vol] 7.8 mg/dL Low 8.4 - 10. 4 mg/dL [facility] Chloride [Moles/Vol] 115 mmol/L High 98 - 10 7 mmol/L [facility] CO2 [Moles/Vol] 21 mmol/L Low 22 - 30 mmol/L [facility] Creatinine [Mass/Vol] 1.01 mg/dL 0.52 - 1.25 mg/dL [facility] EGFR IF NonAfrican Burundian 65.4 mL/min >60 [facility] GFR/1.73 sq M.predicted among blacks MDRD (S/P/Bld) [Vol rate/Area] 75.8 mL/min/{1.73_m2} >60 [facility] Glucose [Mass/Vol] 138 mg/dL High 70 - 100 mg/dL [facility] Interpretation and review of laboratory results Abnormal [facility] Potassium [Moles/Vol] 3.9 mmol/L 3.5 - 5.1 mmol/L [facility] Sodium [Moles/Vol] 139 mmol/L 135 - 145 mmol/L [facility] Urea nitrogen (BldV) [Mass/Vol] 22 mg/dL High 9 - 20 mg/dL [facility] CBC Auto Differentialon 11-0 Absolute Baso # [...] g/dL Critically low 11.7 - 16.0 g/dL [facility] Interpretation and review of laboratory results Abnormal [...] 16.6 10*3/uL High 3.6 - 10.7 10*3/uL [facility] CBC auto differentialon 11-0 [...] 7.3 g/dL Low 11.7 - 16.0 g/dL [facility] Interpretation and review of laboratory results Abnormal [...] 19.3 10*3/uL High 3.6 - 10.7 10*3/uL [facility] CR Chest Portableon 12-21-19 21 CR Chest Portable Normal [facility] CR Forearm 2 Views Lefton CR Forearm 2 Views Left Normal [facility] CT Up Ext w/o Contrast Lefto n 12-20-2020 CT Up Ext w/o Contrast Left Normal [facility] Calcium, Ionizedon Interpretation and review of laboratory results Abnormal [facility] Ionized Ca 4.10 mg/dL Low 4.30 - 5.20 mg/dL [facility] pH (Bld) 7.44 [pH] [facility] Calcium,Ionizedon 12-20-2020 Ionized Ca,Measured 4.10 mg/dL Low 4.30-5.20 [facility] Comment on above: Performed By: #### I CA ####[address] pH, Ionized Calcium 7.44 Normal 7.31-7.46 [facility] Comment on above: Performed By: #### I CA ####[address] Hemoglobin AND Hematocriton 12-20-2020 Hematocrit (Bld) [Volume fraction] 19.4 % Low 35.0-47.0 [facility] Comment on above: Performed By: #### H GHCT, HEMDF ####[address] Hemoglobin (Bld) [Mass/Vol] 6.6 g/dL Critically low 11.7-16.0 [facility] Comment on above: Result Comment: REPE ATED Performed By: #### H GHCT, HEMDF ####[address] Hemogram w/ Autodiffon 12-20 Abs Baso Cnt 0.0 10*3/uL Normal 0.0-0.2 [facility] Comment on above: Performed By: #### H GHCT, HEMDF ####[address] [place], [place] Abs Neutrophile Cnt 14.4 10*3/uL High 1.8-7.0 [facility] Comment on above: Performed By: #### H GHCT, HEMDF ####[address] Basophils/100 WBC (Bld) 0.1 % Normal 0.0-2.0 [facility] Comment on above: Performed By: #### H GHCT, HEMDF ####[address] [place] Eosinophils (Bld) [#/Vol] 0.0 10*3/uL Normal 0.0-0.5 [facility] Comment on above: Performed By: #### H GHCT, HEMDF ####[address] [place], [place] Eosinophils/100 WBC (Bld) 0.0 % Low 1.0-6.0 [facility] Comment on above: Performed By: #### H GHCT, HEMDF ####[address] Erythrocyte distribution width (RBC) [Ratio] 15.4 % High 11.5-14.5 [facility] Comment on above: Performed By: #### H GHCT, HEMDF ####[address] Granulocytes/100 WBC (Bld) 86.8 % High 40.0-80.0 [facility] Comment on above: Performed By: #### H GHCT, HEMDF ####[address] Lymphocytes (Bld) [#/Vol] 1.6 10*3/uL Normal 1.0-4.3 [facility] Comment on above: Performed By: #### H GHCT, HEMDF ####[address] Lymphocytes/100 WBC (Bld) 9.4 % Low 20.0-40.0 [facility] Comment on above: Performed By: #### H GHCT, HEMDF ####[address] MCH (RBC) [Entitic mass] 30.1 pg Normal 26.0-34.0 [facility] Comment on above: Performed By: #### H GHCT, HEMDF ####[address] MCHC 33.6 % Normal 32.0-36.0 [facility] Comment on above: Performed By: #### H GHCT, HEMDF ####[address] [place], [place] MCV (RBC) [Entitic vol] 89.5 fL Normal 79.0-98.0 [facility] Comment on above: Performed By: #### H GHCT, HEMDF ####[address] [place], [place] Monocytes (Bld) [#/Vol] 0.6 10*3/uL Normal 0.0-0.8 [facility] Comment on above: Performed By: #### H GHCT, HEMDF ####[address] [place], [place] Monocytes/100 WBC (Bld) 3.7 % Normal 2.0-10.0 [facility] Comment on above: Performed By: #### H GHCT, HEMDF ####[address] [place], [place] Platelet mean volume (Bld) [Entitic vol] 9.7 fL Normal 7.4-10.4 [facility] Comment on above: Performed By: #### H GHCT, HEMDF ####[address] [place], [place] Platelets (Bld) [#/Vol] 143 10*3/uL Normal 140-440 [facility] Comment on above: Performed By: #### H GHCT, HEMDF ####[address] [place], [place] RBC (Bld) [#/Vol] 2.17 10*6/uL Low 3.80-5.20 [facility] Comment on above: Performed By: #### H GHCT, HEMDF ####[address] [place], [place] WBC (Bld) [#/Vol] 16.6 10*3/uL High 3.6-10.7 [facility] Comment on above: Performed By: #### H GHCT, HEMDF ####[address] [place], [place] Abs Baso Cnt 0.0 10*3/uL Normal 0.0-0.2 [facility] Comment on above: Performed By: #### A BG HEMDF, BMP3 ####[address] [place], [place] Abs Neutrophile Cnt 16.0 10*3/uL High 1.8-7.0 [facility] Comment on above: Performed By: #### A BG HEMDF, BMP3 ####[address] Basophils/100 WBC (Bld) 0.1 % Normal 0.0-2.0 [facility] Comment on above: Performed By: #### A BG HEMDF, BMP3 ####[address] Eosinophils (Bld) [#/Vol] 0.0 10*3/uL Normal 0.0-0.5 [facility] Comment on above: Performed By: #### A BG, HEMDF, BMP3 ####[address] Eosinophils/100 WBC (Bld) 0.0 % Low 1.0-6.0 [facility] Comment on above: Performed By: #### A BG, HEMDF, BMP3 ####[address] Erythrocyte distribution width (RBC) [Ratio] 14.8 % High 11.5-14.5 [facility] Comment on above: Performed By: #### A BG, HEMDF, BMP3 ####[address] Granulocytes/100 WBC (Bld) 82.9 % High 40.0-80.0 [facility] Comment on above: Performed By: #### A BG, HEMDF, BMP3 ####[address] Hematocrit (Bld) [Volume fraction] 21.0 % Low 35.0-47.0 [facility] Comment on above: Performed By: #### A BG HEMDF, BMP3 ####[address] Hemoglobin (Bld) [Mass/Vol] 7.3 g/dL Low 11.7-16.0 [facility] Comment on above: Performed By: #### A BG HEMDF, BMP3 ####[address] Lymphocytes (Bld) [#/Vol] 2.3 10*3/uL Normal 1.0-4.3 [facility] Comment on above: Performed By: #### A BG HEMDF, BMP3 ####[address] Lymphocytes/100 WBC (Bld) 11.9 % Low 20.0-40.0 [facility] Comment on above: Performed By: #### A BG HEMDF, BMP3 ####[address] MCH (RBC) [Entitic mass] 29.6 pg Normal 26.0-34.0 [facility] Comment on above: Performed By: #### A BG HEMDF, BMP3 ####[address] MCHC 34.6 % Normal 32.0-36.0 [facility] Comment on above: Performed By: #### A BG HEMDF, BMP3 ####[address] MCV (RBC) [Entitic vol] 85.5 fL Normal 79.0-98.0 [facility] Comment on above: Performed By: #### A BG HEMDF, BMP3 ####[address] Monocytes (Bld) [#/Vol] 1.0 10*3/uL High 0.0-0.8 [facility] Comment on above: Performed By: #### A BG HEMDF, BMP3 ####[address], [place] Monocytes/100 WBC (Bld) 5.1 % Normal 2.0-10.0 [facility] Comment on above: Performed By: #### A BG HEMDF, BMP3 ####[address] [place], [place] Platelet mean volume (Bld) [Entitic vol] 10.0 fL Normal 7.4-10.4 [facility] Comment on above: Performed By: #### A BG, HEMDF, BMP3 ####[address] Platelets (Bld) [#/Vol] 178 10*3/uL Normal 140-440 [facility] Comment on above: Performed By: #### A BG, HEMDF, BMP3 ####[address] RBC (Bld) [#/Vol] 2.45 10*6/uL Low 3.80-5.20 [facility] Comment on above: Performed By: #### A BG, HEMDF, BMP3 ####[address] WBC (Bld) [#/Vol] 19.3 10*3/uL High 3.6-10.7 [facility] Comment on above: Performed By: #### A BG, HEMDF, BMP3 ####[address] Abs Baso Cnt 0.0 10*3/uL Normal 0.0-0.2 [facility] Comment on above: Performed By: #### H EMDF ####[address] Abs Neutrophile Cnt 18.3 10*3/uL High 1.8-7.0 [facility] Comment on above: Performed By: #### H EMDF ####[address] Basophils/100 WBC (Bld) 0.1 % Normal 0.0-2.0 [facility] Comment on above: Performed By: #### H EMDF ####[address] [place], [place] Eosinophils (Bld) [#/Vol] 0.0 10*3/uL Normal 0.0-0.5 [facility] Comment on above: Performed By: #### H EMDF ####[address] Eosinophils/100 WBC (Bld) 0.0 % Low 1.0-6.0 [facility] Comment on above: Performed By: #### H EMDF ####[address] Erythrocyte distribution width (RBC) [Ratio] 14.6 % High 11.5-14.5 [facility] Comment on above: Performed By: #### H EMDF ####[address] Granulocytes/100 WBC (Bld) 87.1 % High 40.0-80.0 [facility] Comment on above: Performed By: #### H EMDF ####[address] Hematocrit (Bld) [Volume fraction] 23.5 % Low 35.0-47.0 [facility] Comment on above: Performed By: #### H EMDF ####[address] Hemoglobin (Bld) [Mass/Vol] 8.0 g/dL Low 11.7-16.0 [facility] Comment on above: Performed By: #### H EMDF ####[address] Lymphocytes (Bld) [#/Vol] 1.7 10*3/uL Normal 1.0-4.3 [facility] Comment on above: Performed By: #### H EMDF ####[address] Lymphocytes/100 WBC (Bld) 8.3 % Low 20.0-40.0 [facility] Comment on above: Performed By: #### H EMDF ####[address] [place], [place] MCH (RBC) [Entitic mass] 29.6 pg Normal 26.0-34.0 [facility] Comment on above: Performed By: #### H EMDF ####[address] [place] MCHC 34.2 % Normal 32.0-36.0 [facility] Comment on above: Performed By: #### H EMDF ####[address] MCV (RBC) [Entitic vol] 86.5 fL Normal 79.0-98.0 [facility] Comment on above: Performed By: #### H EMDF ####[address] Monocytes (Bld) [#/Vol] 1.0 10*3/uL High 0.0-0.8 [facility] Comment on above: Performed By: #### H EMDF ####[address] [place], [place] Monocytes/100 WBC (Bld) 4.5 % Normal 2.0-10.0 [facility] Comment on above: Performed By: #### H EMDF ####[address] [place], [place] Platelet mean volume (Bld) [Entitic vol] 10.1 fL Normal 7.4-10.4 [facility] Comment on above: Performed By: #### H EMDF ####[address] [place], [place] Platelets (Bld) [#/Vol] 168 10*3/uL Normal 140-440 [facility] Comment on above: Performed By: #### H EMDF ####[address] RBC (Bld) [#/Vol] 2.71 10*6/uL Low 3.80-5.20 [facility] Comment on above: Performed By: #### H EMDF ####[address] WBC (Bld) [#/Vol] 21.1 10*3/uL High 3.6-10.7 [facility] Comment on above: Performed By: #### H EMDF ####[address] Laboratory - Blood bankon ABO and Rh group Nom (Bld) [address] [facility] ABO and Rh group Nom (Bld) 6[address] [facility] Blood product unit ID (Dose) [#] [id number] [facility] Leukodepleted Red Cellson Leukodepleted Red Cells Normal [facility] Comment on above: Performed By: #### P RP, LRC, SDP, CR5 ####[address] [address]#### TSGL ####[facility] No Panel Informationon 12-20 Dispense Status Blood Bank transfused [facility] Expiration Date [facility] Product Code Blood Bank [id number] [facility] Radiology Study observation (narrative) [facility] Work Phone: Dispense Status Blood Bank released [facility] Expiration Date [facility] Product Code Blood Bank [id number] [facility] Op Noteon 12-20-2020 Op Note Normal [facility] PATHOGEN REDUCED LR PPHRon 1 02-20-2020 PATHOGEN REDUCED LR PPHR Normal [facility] Comment on above: Performed By: #### P RP, LRC, SDP, CR5 ####[address] [address]#### TSGL ####[facility] PLASMA STATUSon 12-20-2020 BLOOD PRODUCT CODE [id number] Normal [facility] Comment on above: Performed By: #### F FU #### [facility] [address] [place] [address], [id number] BLOOD PRODUCT DESCRIPTION FFP Normal [facility] Comment on above: Performed By: #### F FU #### S [facility] LAB[facility]AT[facility] [address], [place], BLOOD PRODUCT UNIT INFO [id number] Normal [facility] Comment on above: Performed By: #### F FU #### S [facility] LAB[facility] [address], [place], BLOOD PRODUCT UNIT TYPE 6200 Normal [facility] Comment on above: Result Comment: A Po s Performed By: #### F FU #### S [facility] LAB[facility] [address], [place], PREPARE PLATELETS, 1 Product on 12-20-2020 [facility] PREPARE RBC (CROSSMATCH), 2 Unitson 12-20-2020 Blood product unit ID (Dose) [#] [id number] [facility] Blood product unit ID (Dose) [#] [id number] [facility] Procalcitoninon 12-20-2020 Procalcitonin 1.08 ng/mL High 0.00-0.09 [facility] Comment on above: Performed By: #### P MICHELLE ####[facility] [address] [id number] [place] [address] Interpretation See Below [facility] Work Phone: Interpretation and review of laboratory results Abnormal [facility] Work Phone: Procalcitonin 1.08 ng/mL High 0.00 - 0.09 ng/mL [facility] Work Phone: [facility] Work Phone: Interpretation See Below Normal [facility] Comment on above: Result Comment: PCT <0.50 = Low risk of severe sepsis and/or septic shock.PCT >2.00 = High risk of severe sepsis and/or septic shock. Performed By: #### P MICHELLE ####[address] [place] [address] RED BLOOD CELL COMPONENTon 1 02-20-2020 BB ORDER ITEM Product status info to follow [facility] Comment on above: Performed By: #### R REYNALDO #### [facility] [address] [place] [address], Performed By: #### F FO #### S [facility] [address] [place] [address], RED BLOOD CELL UNIT STATUSon 12-20-2020 BLOOD PRODUCT CODE [id number] Normal [facility] Comment on above: Performed By: #### R BU #### S [facility] [address] [place] [address], BLOOD PRODUCT DESCRIPTION Red Blood Cells Normal [facility] Comment on above: Performed By: #### R BU #### S [facility] [address] [place] [address], BLOOD PRODUCT STATUS Transfused Normal [facility] Comment on above: Performed By: #### R BU #### [facility] [address] [place] [address], Performed By: #### F FU #### S [facility] [address] [place] [address], BLOOD PRODUCT UNIT INFO [id number] Normal [facility] Comment on above: Performed By: #### R BU #### S [facility] [address] [place] [address], BLOOD PRODUCT UNIT INFO [id number] Normal [facility] Comment on above: Performed By: #### R BU #### S [facility] [address] [place] [address], BLOOD PRODUCT UNIT TYPE 9500 Normal [facility] Comment on above: Result Comment: O Ne g Performed By: #### R BU #### S [facility] [address] [place] [address], CROSSMATCH INTERPRETATION Compatible (IS) Normal [facility] Comment on above: Result Comment: PERF ORMED BY NINA. Emergency Transfusion - Transfused Uncrossmatched Performed By: #### R BU #### [facility] [address] [place] [address], Single Donor Plasma (CP2D)on 12-20-2020 Single Donor Plasma (CP2D) Normal [facility] Comment on above: Performed By: #### P RP, LRC, SDP, CR5 ####[address] [address]#### TSGL ####[facility] Surgical Pathologyon 021 Surgical Pathology Report SEE BELOW [facility] XR CHEST PORTABLEon 12-21-19 21 [facility] Work Phone: [facility] Work Phone: XR RADIUS ULNA LEFT (2 VIEWS )on 12-20-2020 [facility] Work Phone: XR RADIUS ULNA LEFT (2 VIEWS )Ordered By: Jerome Denson on 12-20-2020 [facility] Work Phone: Arterial Blood Gaseson 12-19 CO2 [Moles/Vol] 21.5 mmol/L Low 23.0-27.0 [facility] Comment on above: Performed By: #### A BG ####[address] [address] HCO3 (Bld) [Moles/Vol] 20.5 mmol/L Low 21.0-25.0 [facility] Comment on above: Performed By: #### A BG ####[address] [address] Hemoglobin (Bld) [Mass/Vol] 10.6 g/dL Normal ScreenOnly [facility] Comment on above: Performed By: #### A BG ####[address] [address] Oxygen (Bld) [Partial pressure] 172.1 mm[Hg] High 80.0-100.0 [facility] Comment on above: Performed By: #### A BG ####[address] [address] Oxygen saturation in Blood 98.9 % Normal 95.0-100.0 [facility] Comment on above: Performed By: #### A BG ####[address] pCO2 34.3 mm[Hg] Low 35.0-45.0 [facility] Comment on above: Performed By: #### A BG ####[address] [place], [place] pH 7.394 Normal 7.350-7.450 [facility] Comment on above: Performed By: #### A BG ####[address] [place], [place] Std Base Excess -3.8 mmol/L Low -3.0-3.0 [facility] Comment on above: Performed By: #### A BG ####[address] [place], [place] FIO2 No data Normal [facility] Comment on above: Performed By: #### A BG ####[address] CO2 [Moles/Vol] 25.2 mmol/L Normal 23.0-27.0 [facility] Comment on above: Performed By: #### A BG, HGHCT, LACT3 ####[address] [place], [place] HCO3 (Bld) [Moles/Vol] 23.9 mmol/L Normal 21.0-25.0 [facility] Comment on above: Performed By: #### A BG, HGHCT, LACT3 ####[address] [address] [place], [place] Hemoglobin (Bld) [Mass/Vol] 5.5 g/dL Critically low ScreenOnly [facility] Comment on above: Performed By: #### A BG, HGHCT, LACT3 ####[address] [place], [place] Oxygen (Bld) [Partial pressure] 170.9 mm[Hg] High 80.0-100.0 [facility] Comment on above: Performed By: #### A BG, HGHCT, LACT3 ####[address] [place], [place] Oxygen saturation in Blood 98.8 % Normal 95.0-100.0 [facility] Comment on above: Performed By: #### A BG, HGHCT, LACT3 ####[address] [place], [place] pCO2 41.4 mm[Hg] Normal 35.0-45.0 [facility] Comment on above: Performed By: #### A BG, HGHCT, LACT3 ####[address] pH 7.380 Normal 7.350-7.450 [facility] Comment on above: Performed By: #### A BG, HGHCT, LACT3 ####[address] Std Base Excess -1.1 mmol/L Normal -3.0-3.0 [facility] Comment on above: Performed By: #### A BG, HGHCT, LACT3 ####[address] FIO2 0.5 Normal [facility] Comment on above: Performed By: #### A BG, HGHCT, LACT3 ####[address] Basic Metabolic Panelon 11-0 Calcium [Mass/Vol] 8.7 mg/dL Normal 8.4-10.4 [facility] Comment on above: Performed By: #### M G3, PHOS3, BMP3 ####[address] Anion gap [Moles/Vol] 5 mmol/L Normal 3-13 [facility] Comment on above: Performed By: #### M G3, PHOS3, BMP3 ####[address] CO2 [Moles/Vol] 20 mmol/L Low 22-30 [facility] Comment on above: Performed By: #### M G3, PHOS3, BMP3 ####[address] [place], [place] Creatinine [Mass/Vol] 0.90 mg/dL Normal 0.52-1.25 [facility] Comment on above: Performed By: #### M G3 PHOS3, BMP3 ####[facility] [place], [place] GFR/1.73 sq M.predicted among blacks MDRD (S/P/Bld) [Vol rate/Area] 87.1 mL/min/{1.73_m2} Normal >60 [facility] Comment on above: Performed By: #### M G3, PHOS3, BMP3 ####[facility] [employer] [id number] [place], [place] GFR/1.73 sq M.predicted among non-blacks MDRD (S/P/Bld) [Vol rate/Area] 75.2 mL/min/{1.73_m2} Normal >60 [facility] Comment on above: Result Comment: KDIG O guidelines provide the following GFR categories:Stage GFR(ml/min/1.73 m2) TermsG1 >=90 Normal or highG2 60-89 Mildly decreased*G3a 45-59 Mildly to moderately [id number] 30-44 Moderately to severely decreasedG4 15-29 Severely [...] Performed By: #### M G3, PHOS3, BMP3 ####[facility] [address] [id number] [place], [place] Glucose [Mass/Vol] 160 mg/dL High 70-100 [facility] Comment on above: Performed By: #### M G3, PHOS3, BMP3 ####[facility] [employer] [id number] [place], [place] Urea nitrogen [Mass/Vol] 17 mg/dL Normal 9-20 [facility] Comment on above: Performed By: #### M Wu PHOS3, BMP3 ####[facility] [place], [place] Chloride [Moles/Vol] 114 mmol/L High 98-107 [facility] Comment on above: Performed By: #### M G3, PHOS3, BMP3 ####[address] [place], [place] Potassium [Moles/Vol] 4.9 mmol/L Normal 3.5-5.1 [facility] Comment on above: Performed By: #### Ward Washburn, PHOS3, BMP3 ####[address] [place], [place] Sodium [Moles/Vol] 138 mmol/L Normal 135-145 [facility] Comment on above: Performed By: #### Ward Washburn, PHOS3, BMP3 ####[address] [place], [place] CBC auto differentialon 11-0 Absolute Baso [...] 8.0 g/dL Low 11.7 - 16.0 g/dL [facility] Interpretation and review of laboratory results Abnormal [...] 21.1 10*3/uL High 3.6 - 10.7 10*3/uL [facility] Hematocrit (Bld) [Volume fraction] 25.6 % Low 35.0 - 47.0 % [facility] Hemoglobin.gastrointe stinal spec 1 Ql (Stl) 8.6 g/dL Low 11.7 - 16.0 g/dL [facility] Interpretation and review of laboratory results Abnormal [...] 24.8 10*3/uL High 3.6 - 10.7 10*3/uL [facility] Absolute Baso # 0.1 10*3/uL [...] 23.4 10*3/uL High 3.6 - 10.7 10*3/uL [facility] CR Chest Portableon 12-20-19 CR [facility]able [facility] Chest Port[facility] Normal [facility] CR Pelvis 1 or 2 Viewson CR Pelvis 1 or 2 Views Normal [facility] CR Shoulder 2+ Views Lefton 12-19-2020 CR Shoulder 2+ Views Left Normal [facility] CR Tibia/Fibula 2 Views Rig ton 12-19-2020 CR Tibia/Fibula 2 Views Right Normal [facility] CR Wrist 2 Views Lefton CR Wrist 2 Views Left Normal [facility] CT Head or Brain w/o Contras ton 12-19-2020 CT Head or Brain w/o Contrast Normal [facility] CT LOWER EXTREMITY LEFT WO C ONTRASTon 12-19-2020 [facility] Work Phone: [facility] Work Phone: CT LOWER EXTREMITY RIGHT WO CONTRASTon 12-19-2020 [facility] RAD CT Low Ext w/o Contrast Left on 12-19-2020 CT Low Ext w/o Contrast Left Normal [facility] CT Low Ext w/o Contrast Righ ton 12-19-2020 CT Low Ext w/o Contrast Right Normal [facility] CT Maxillofacial w/o Contras ton 12-19-2020 CT Maxillofacial w/o Contrast Normal [facility] CT PELVIS WO CONTRAST Additi onal Contrast? Noneon 12-19-2020 [facility] Work Phone: CT PELVIS WO CONTRAST Additi onal Contrast? NoneOrdered By: Praveen Vidal on 12-19-2020 [employer] Work Phone: CT Pelvis w/o Contrast (PO O nly)on 12-19-2020 CT Pelvis w/o Contrast (PO Only) Normal [facility] CT Sinus WO Contraston 12-19 [facility] [employer] [facility] [employer] Work Phone: [facility] Work Phone: CT UPPER EXTREMITY LEFT WO C ONTRASTon 12-19-2020 [facility] [employer] [facility] [employer] Work Phone: CT UPPER EXTREMITY LEFT WO C ONTRASTOrdered By: Jasper Falcon on 12-19-2020 [employer] Work Phone: Drugs of Abuseon 12-19-2020 Methadone, Ur Positive Normal [facility] Comment on above: Performed By: #### D RGA4 ####[facility] [employer] [id number]. [place], [place] Phencyclidine (PCP), Ur Negative Normal [facility] Comment on above: Result Comment: The [...] separate order. Performed By: #### D RGA4 ####[facility] [employer] [id number] [facility] [place] [address] Cocaine, Ur Negative Normal [facility] Comment on above: Performed By: #### D RGA4 ####[facility] [facility] [place] [address] Barbiturates, Ur Negative Normal [facility] Comment on above: Performed By: #### D RGA4 ####[address] . [place], [place] Opiates, Ur Negative Normal [facility] Comment on above: Performed By: #### D RGA4 ####[address] [place], [place] Amphetamines, Ur Negative Normal [facility] Comment on above: Performed By: #### D RGA4 ####[address] . [place], [place] Benzodiazepines, Ur Positive Normal [facility] Comment on above: Performed By: #### D RGA4 ####[address] [place], [place] Oxycodone/Oxymorphine ,Ur Negative Normal [facility] Comment on above: Performed By: #### D RGA4 ####[address] [place], [place] Hemoglobin AND Hematocriton 12-19-2020 Hematocrit (Bld) [Volume fraction] 30.9 % Low 35.0-47.0 [facility] Comment on above: Performed By: #### H GHCT ####[address] [place], [place] Hemoglobin (Bld) [Mass/Vol] 10.5 g/dL Low 11.7-16.0 [facility] Comment on above: Performed By: #### H GHCT ####[address] . [place] Hematocrit (Bld) [Volume fraction] 16.6 % Low 35.0-47.0 [facility] Comment on above: Performed By: #### A BG, HGHCT, LACT3 ####[address] [place], [place] Hemoglobin (Bld) [Mass/Vol] 5.6 g/dL Critically low 11.7-16.0 [facility] Comment on above: Performed By: #### A BG, HGHCT, LACT3 ####[address] [place], [place] Hemogram w/ Autodiffon 12-19 Erythrocyte distribution width (RBC) [Ratio] 14.8 % High 11.5-14.5 [facility] Comment on above: Performed By: #### LUIS ALFREDO SIU ####[address] [place], [place] Hematocrit (Bld) [Volume fraction] 25.6 % Low 35.0-47.0 [facility] Comment on above: Performed By: #### LUIS ALFREDO SIU ####[address] [place], [place] Hemoglobin (Bld) [Mass/Vol] 8.6 g/dL Low 11.7-16.0 [facility] Comment on above: Performed By: #### LUIS ALFREDO SIU ####[address] MCH (RBC) [Entitic mass] 29.1 pg Normal 26.0-34.0 [facility] Comment on above: Performed By: #### LUIS ALFREDO SIU ####[address] [place], [place] MCHC 33.8 % Normal 32.0-36.0 [facility] Comment on above: Performed By: #### LUIS ALFREDO SIU ####[address] MCV (RBC) [Entitic vol] 86.1 fL Normal 79.0-98.0 [facility] Comment on above: Performed By: #### LUIS ALFREDO SIU ####[address] Platelet mean volume (Bld) [Entitic vol] 10.0 fL Normal 7.4-10.4 [facility] Comment on above: Performed By: #### LUIS ALFREDO SIU ####[address] Platelets (Bld) [#/Vol] 142 10*3/uL Normal 140-440 [facility] Comment on above: Performed By: #### H LUIS ALFREDO RAWLS ####[address] RBC (Bld) [#/Vol] 2.97 10*6/uL Low 3.80-5.20 [facility] Comment on above: Performed By: #### H LUIS ALFREDO RAWLS ####[address] WBC (Bld) [#/Vol] 24.8 10*3/uL High 3.6-10.7 [facility] Comment on above: Performed By: #### H LUIS ALFREDO RAWLS ####[address] Abs Baso Cnt 0.1 10*3/uL Normal 0.0-0.2 [facility] Comment on above: Performed By: #### H CURLY ####[address] Abs Neutrophile Cnt 20.0 10*3/uL High 1.8-7.0 [facility] Comment on above: Performed By: #### H CURLY ####[address] Basophils/100 WBC (Bld) 0.3 % Normal 0.0-2.0 [facility] Comment on above: Performed By: #### H CURLY ####[address] Eosinophils (Bld) [#/Vol] 0.0 10*3/uL Normal 0.0-0.5 [facility] Comment on above: Performed By: #### H EMDMiguel Ángel ####[address] Eosinophils/100 WBC (Bld) 0.0 % Low 1.0-6.0 [facility] Comment on above: Performed By: #### H EMDF ####[address] [address] Erythrocyte distribution width (RBC) [Ratio] 13.8 % Normal 11.5-14.5 [facility] Comment on above: Performed By: #### H EMDF ####[address] Granulocytes/100 WBC (Bld) 85.3 % High 40.0-80.0 [facility] Comment on above: Performed By: #### H EMDF ####[address] Hematocrit (Bld) [Volume fraction] 26.9 % Low 35.0-47.0 [facility] Comment on above: Performed By: #### H EMDF ####[address] Hemoglobin (Bld) [Mass/Vol] 9.1 g/dL Low 11.7-16.0 [facility] Comment on above: Performed By: #### H EMDF ####[address] Lymphocytes (Bld) [#/Vol] 2.4 10*3/uL Normal 1.0-4.3 [facility] Comment on above: Performed By: #### H EMDF ####[address] Lymphocytes/100 WBC (Bld) 10.3 % Low 20.0-40.0 [facility] Comment on above: Performed By: #### H EMDF ####[address] MCH (RBC) [Entitic mass] 29.1 pg Normal 26.0-34.0 [facility] Comment on above: Performed By: #### H EMDF ####[address] MCHC 33.9 % Normal 32.0-36.0 [facility] Comment on above: Performed By: #### H EMDF ####[address] MCV (RBC) [Entitic vol] 85.8 fL Normal 79.0-98.0 [facility] Comment on above: Performed By: #### H EMDF ####[address] Monocytes (Bld) [#/Vol] 1.0 10*3/uL High 0.0-0.8 [facility] Comment on above: Performed By: #### H EMDF ####[address] Monocytes/100 WBC (Bld) 4.1 % Normal 2.0-10.0 [facility] Comment on above: Performed By: #### H EMDF ####[address] Platelet mean volume (Bld) [Entitic vol] 10.1 fL Normal 7.4-10.4 [facility] Comment on above: Performed By: #### H EMDF ####[address] Platelets (Bld) [#/Vol] 112 10*3/uL Low 140-440 [facility] Comment on above: Performed By: #### H EMDF ####[address] RBC (Bld) [#/Vol] 3.13 10*6/uL Low 3.80-5.20 [facility] Comment on above: Performed By: #### H EMDF ####[address] WBC (Bld) [#/Vol] 23.4 10*3/uL High 3.6-10.7 [facility] Comment on above: Performed By: #### H EMDF ####[address] Abs Baso Cnt 0.0 10*3/uL Normal 0.0-0.2 [facility] Comment on above: Performed By: #### B MP3M, ICA, LFT3, HEMDF, ABG ####[facility] [address] [place], [place] Abs Neutrophile Cnt 15.8 10*3/uL High 1.8-7.0 [facility] Comment on above: Performed By: #### B MP3M, ICA, LFT3, HEMDF, ABG ####[address] [place], [place] Basophils/100 WBC (Bld) 0.2 % Normal 0.0-2.0 [facility] Comment on above: Performed By: #### B MP3M, ICA, LFT3, HEMDF, ABG ####[address] Eosinophils (Bld) [#/Vol] 0.0 10*3/uL Normal 0.0-0.5 [facility] Comment on above: Performed By: #### B MP3M, ICA, LFT3, HEMDF, ABG ####[address] Eosinophils/100 WBC (Bld) 0.0 % Low 1.0-6.0 [facility] Comment on above: Performed By: #### B MP3M, ICA, LFT3, HEMDF, ABG ####[address] [place], [place] Erythrocyte distribution width (RBC) [Ratio] 14.0 % Normal 11.5-14.5 [facility] Comment on above: Performed By: #### B MP3M, ICA, LFT3, HEMDF, ABG ####[address] Granulocytes/100 WBC (Bld) 85.1 % High 40.0-80.0 [facility] Comment on above: Performed By: #### B MP3M, ICA, LFT3, HEMDF, ABG ####[address] Hematocrit (Bld) [Volume fraction] 30.3 % Low 35.0-47.0 [facility] Comment on above: Performed By: #### B MP3M, ICA, LFT3, HEMDF, ABG ####[address] [place], [place] Hemoglobin (Bld) [Mass/Vol] 10.4 g/dL Low 11.7-16.0 [facility] Comment on above: Performed By: #### B MP3M, ICA, LFT3, HEMDF, ABG ####[address] [place] Lymphocytes (Bld) [#/Vol] 2.0 10*3/uL Normal 1.0-4.3 [facility] Comment on above: Performed By: #### B MP3M, ICA, LFT3, HEMDF, ABG ####[address] [place], [place] Lymphocytes/100 WBC (Bld) 10.9 % Low 20.0-40.0 [facility] Comment on above: Performed By: #### B MP3M, ICA, LFT3, HEMDF, ABG ####[address] MCH (RBC) [Entitic mass] 29.5 pg Normal 26.0-34.0 [facility] Comment on above: Performed By: #### B MP3M, ICA, LFT3, HEMDF, ABG ####[address] MCHC 34.2 % Normal 32.0-36.0 [facility] Comment on above: Performed By: #### B MP3M, ICA, LFT3, HEMDF, ABG ####[address] MCV (RBC) [Entitic vol] 86.1 fL Normal 79.0-98.0 [facility] Comment on above: Performed By: #### B MP3M, ICA, LFT3, HEMDF, ABG ####[address] Monocytes (Bld) [#/Vol] 0.7 10*3/uL Normal 0.0-0.8 [facility] Comment on above: Performed By: #### B MP3M, ICA, LFT3, HEMDF, ABG ####[address] [place], [place] Monocytes/100 WBC (Bld) 3.8 % Normal 2.0-10.0 [facility] Comment on above: Performed By: #### B MP3M, ICA, LFT3, HEMDF, ABG ####[address] [place] Platelet mean volume (Bld) [Entitic vol] 10.4 fL Normal 7.4-10.4 [facility] Comment on above: Performed By: #### B MP3M, ICA, LFT3, HEMDF, ABG ####[address] [place] Platelets (Bld) [#/Vol] 98 10*3/uL Low 140-440 [facility] Comment on above: Performed By: #### B MP3M, ICA, LFT3, HEMDF, ABG ####[address] [place] RBC (Bld) [#/Vol] 3.51 10*6/uL Low 3.80-5.20 [facility] Comment on above: Performed By: #### B MP3M, ICA, LFT3, HEMDF, ABG ####[address] [place] WBC (Bld) [#/Vol] 18.5 10*3/uL High 3.6-10.7 [facility] Comment on above: Performed By: #### B MP3M, ICA, LFT3, HEMDF, ABG ####[address] [place], [place] LAB SCANNED RE[facility]on [facility] Lactic Acidon 12-19-2020 Lactate [Moles/Vol] 1.3 mmol/L Normal 0.7-2.0 [facility] Comment on above: Performed By: #### A BG, HGHCT, LACT3 ####[address] [place], [place] Leukodepleted Red Cellson Leukodepleted Red Cells Normal [facility] Comment on above: Performed By: #### P RP, LRC, SDP, CR5 ####[address] [address]#### TSGL ####[facility] Magnesiumon 12-19-2020 Magnesium [Mass/Vol] 1.7 mg/dL Normal 1.6-2.3 [facility] Comment on above: Performed By: #### M G3, PHOS3, BMP3 ####[address] Manual Diffon 12-19-2020 Abs Lymph Cnt 1.5 10*3/uL Normal 1.1-4.5 [facility] Comment on above: Performed By: #### LUIS ALFREDO SIU ####[address] [place], [place] Abs Monocyte Cnt 0.5 10*3/uL Normal 0.2-1.1 [facility] Comment on above: Performed By: #### LUIS ALFREDO SIU ####[address] [place], [place] Abs Neutrophile Cnt 22.8 10*3/uL High 2.2-8.2 [facility] Comment on above: Performed By: #### LUIS ALFREDO SIU ####[address] [place], [place] Bands 23 % High 0-3 [facility] Comment on above: Performed By: #### LUIS ALFREDO SIU ####[address] [place], [place] Lymphocytes 6 % Low 20-40 [facility] Comment on above: Performed By: #### LUIS ALFREDO SIU ####[address] [place], [place] Monocytes 2 % Normal 2-10 [facility] Comment on above: Performed By: #### LUIS ALFREDO SIU ####[address] RBC Morphology Normal Normal [facility] Comment on above: Performed By: #### LUIS ALFREDO SIU ####[address] Seg Neutrophils 69 % Normal 40-80 [facility] Comment on above: Performed By: #### LUIS ALFREDO SIU ####[address] Abs Baso Cnt 0.0 10*3/uL Normal 0.0-0.2 [facility] Comment on above: Performed By: #### LUIS ALFREDO SIU ####[address] Abs Eosin Cnt 0.0 10*3/uL Normal 0.0-0.5 [facility] Comment on above: Performed By: #### LUIS ALFREDO SIU ####[address] Basophils 0 % Normal 0-2 [facility] Comment on above: Performed By: ###LUIS ALFREDO SWEET ####[address] Cells counted 100 Normal [facility] Comment on above: Performed By: #### LUIS ALFREDO SIU ####[address] Eosinophils 0 % Low 1-6 [facility] Comment on above: Performed By: #### LUIS ALFREDO SIU ####[address] Manual Differentialon 2020 Absolute Baso # 0.0 10*3/uL 0.0 - 0.2 10*3/uL [facility] Absolute Eos # 0.0 10*3/uL 0.0 - 0.5 10*3/uL [facility] Absolute Lymph # 1.5 10*3/uL 1.1 - 4.5 10*3/uL [facility] Absolute Real # 0.5 10*3/uL 0.2 - 1.1 10*3/uL [...] Neutrophils 69 % 40 - 80 % [facility] TOTAL CELLS COUNTED 100 [facility] No Panel Informationon 12-19 [facility] Radiology Study observation (narrative) [facility] Work Phone: Op Noteon 12-19-2020 Op Note Normal [facility] POOLED CRYO-5 PKon 1 POOLED CRYO-5 PK Normal [facility] Comment on above: Performed By: #### P RP, LRC, SDP, CR5 ####[address] [address]#### TSGL ####[facility] PREPARE CRYOPRECIPITATE (CAR DRYER SSMATCH), 1 Producton 12-19-2020 ABO and Rh group Nom (Bld) 6200 [facility] Blood product unit ID (Dose) [#] [id number] [facility] Dispense Status Blood Bank transfused [facility] Expiration Date [facility] Product Code Blood Bank [id number] [facility] Phosphoruson 12-19-2020 Phosphate [Mass/Vol] 4.0 mg/dL Normal 2.5-4.5 [facility] Comment on above: Performed By: #### M G3, PHOS3, BMP3 ####[address] [place] [address] Urine Drug Screenon 12-20-19 21 Amphetamines, urine Negative [facility] Barbiturates, Ur Negative [facility] Benzodiazepine Ur Qual Positive [facility] Cocaine Metabolites, Ur Negative [facility] Methadone, Urine Positive [facility] Opiates, Urine Negative [facility] Oxycodone Screen, Ur Negative [facility] PCP, Urine Negative [facility] XR CHEST PORTABLEon 12-20-19 [facility] Work Phone: [facility] Work Phone: Radiology Study observation (narrative) [facility] Work Phone: [phone] [facility] RAD [facility] Work Phone: Radiology Study observation (narrative) [facility] Work Phone: XR CHEST PORTABLEOrdered By: Jerome Joseph on 12-19-2020 [facility] Work Phone: XR Shoulder Left 2 VWon 11- [facility] Work Phone: [phone] [facility] Work Phone: APTEM, Assayon 12-18-2020 [facility], A10 36 mm Low 50-70 [facility] Comment on above: Performed By: #### E XTEM, FIBTM, APTEM ####[address] [facility] [place] APTEM, A20 44 mm Low 50-70 [facility] Comment on above: Performed By: #### E XTEM, FIBTM, APTEM ####[address] . [facility] [place] APTEM, Alpha 55 Low 65-80 [facility] Comment on above: Performed By: #### E XTEM, FIBTM, APTEM ####[address] [facility] [place] APTEM, Clot Formation Time 196 s High 48-127 [facility] Comment on above: Performed By: #### E XTEM, FIBTM, APTEM ####[address] [facility] [place] APTEM, Clotting Time 90 s High 43-82 [facility] Comment on above: Performed By: #### E XTEM, FIBTM, APTEM ####[address] [place] APTEM, Maximal Clot Firmness 50 mm Low 52-70 [facility] Comment on above: Result Comment: ROTE M viscoelastic testing is not FDA approved forthe pediatric population (<21 years of age) and theattached reference ranges pertain to adults only. Performed By: #### E XTEM, FIBTM, APTEM ####[address] [place] APTEM, A10 51 mm Normal 50-70 [facility] Comment on above: Performed By: #### A PTEM, FIBTM, EXTEM ####[address] [place] APTEM, A20 58 mm Normal 50-70 [facility] Comment on above: Performed By: #### A PTEM, FIBTM, EXTEM ####[address] [place] APTEM, Alpha 71 Normal 65-80 [facility] Comment on above: Performed By: #### A PTEM, FIBTM, EXTEM ####[address] [place] APTEM, Clot Formation Time 96 s Normal 48-127 [facility] Comment on above: Performed By: #### A PTEM, FIBTM, EXTEM ####[address] [place] APTEM, Clotting Time 64 s Normal 43-82 [facility] Comment on above: Performed By: #### A PTEM, FIBTM, EXTEM ####[address] [place] APTEM, Maximal Clot Firmness 61 mm Normal 52-70 [facility] Comment on above: Result Comment: ROTE M viscoelastic testing is not FDA approved forthe pediatric population (<21 years of age) and theattached reference ranges pertain to adults only. Performed By: #### A PTEM, FIBTM, EXTEM ####[address] [place] Arterial Blood Gaseson 12-18 CO2 [Moles/Vol] 27.4 mmol/L High 23.0-27.0 [facility] Comment on above: Performed By: #### B MP3M, ICA, LFT3, HEMDF, ABG ####[address] [place] HCO3 (Bld) [Moles/Vol] 26.0 mmol/L High 21.0-25.0 [facility] Comment on above: Performed By: #### B MP3M, ICA, LFT3, HEMDF, ABG ####[address] [place] Hemoglobin (Bld) [Mass/Vol] 10.3 g/dL Normal ScreenOnly [facility] Comment on above: Performed By: #### B MP3M, ICA, LFT3, HEMDF, ABG ####[address] [place], [place] Oxygen (Bld) [Partial pressure] 422.7 mm[Hg] High 80.0-100.0 [facility] Comment on above: Performed By: #### B MP3M, ICA, LFT3, HEMDF, ABG ####[address] [place], [place] Oxygen saturation in Blood 98.8 % Normal 95.0-100.0 [facility] Comment on above: Performed By: #### B MP3M, ICA, LFT3, HEMDF, ABG ####[address] [place] pCO2 44.2 mm[Hg] Normal 35.0-45.0 [facility] Comment on above: Performed By: #### B MP3M, ICA, LFT3, HEMDF, ABG ####[address] [place], [place] pH 7.388 Normal 7.350-7.450 [facility] Comment on above: Performed By: #### B MP3M, ICA, LFT3, HEMDF, ABG ####[address] Std Base Excess 0.8 mmol/L Normal -3.0-3.0 [facility] Comment on above: Performed By: #### B MP3M, ICA, LFT3, HEMDF, ABG ####[address] [place], [place] FIO2 No data Normal [facility] Comment on above: Performed By: #### B MP3M, ICA, LFT3, HEMDF, ABG ####[address] [place] CO2 [Moles/Vol] 20.4 mmol/L Low 23.0-27.0 [facility] Comment on above: Performed By: #### C MP3, LACT3, ABG, PT/AP, HEMDF ####[address] [place] HCO3 (Bld) [Moles/Vol] 19.1 mmol/L Low 21.0-25.0 [facility] Comment on above: Performed By: #### C MP3, LACT3, ABG, PT/AP, HEMDF ####[address] [place] Hemoglobin (Bld) [Mass/Vol] 11.0 g/dL Normal ScreenOnly [facility] Comment on above: Performed By: #### C MP3, LACT3, ABG, PT/AP, HEMDF ####[address] [place] Oxygen (Bld) [Partial pressure] 414.1 mm[Hg] High 80.0-100.0 [facility] Comment on above: Performed By: #### C MP3, LACT3, ABG, PT/AP, HEMDF ####[address] [place] Oxygen saturation in Blood 98.9 % Normal 95.0-100.0 [facility] Comment on above: Performed By: #### C MP3, LACT3, ABG, PT/AP, HEMDF ####[address] [place] pCO2 43.0 mm[Hg] Normal 35.0-45.0 [facility] Comment on above: Performed By: #### C MP3, LACT3, ABG, PT/AP, HEMDF ####[address] [place], [place] pH 7.266 Low 7.350-7.450 [facility] Comment on above: Performed By: #### C MP3, LACT3, ABG, PT/AP, HEMDF ####[address] [place], [place] Std Base Excess -7.5 mmol/L Low -3.0-3.0 [facility] Comment on above: Performed By: #### C MP3, LACT3, ABG, PT/AP, HEMDF ####[address] [place] FIO2 No data Normal [facility] Comment on above: Performed By: #### C MP3, LACT3, ABG, PT/AP, HEMDF ####[address] [place], [place] Basic Metabolic Panelon 11-0 Calcium [Mass/Vol] 7.1 mg/dL Low 8.4-10.4 [facility] Comment on above: Performed By: #### B MP3M, ICA, LFT3, HEMDF, ABG ####[address] [place], [place] Glucose [Mass/Vol] 58 mg/dL Low 70-100 [facility] Comment on above: Performed By: #### B MP3M, ICA, LFT3, HEMDF, ABG ####[address] [place] Anion gap [Moles/Vol] 1 mmol/L Low 3-13 [facility] Comment on above: Performed By: #### B MP3M, ICA, LFT3, HEMDF, ABG ####[address] [place], [place] CO2 [Moles/Vol] 25 mmol/L Normal 22-30 [facility] Comment on above: Performed By: #### B MP3M, ICA, LFT3, HEMDF, ABG ####[address] [place] Creatinine [Mass/Vol] 1.11 mg/dL Normal 0.52-1.25 [facility] Comment on above: Performed By: #### B MP3M, ICA, LFT3, HEMDF, ABG ####[address] [place] [address] GFR/1.73 sq M.predicted among blacks MDRD (S/P/Bld) [Vol rate/Area] 67.6 mL/min/{1.73_m2} Normal >60 [facility] Comment on above: Performed By: #### B MP3M, ICA, LFT3, HEMDF, ABG ####[address] [place], [place] GFR/1.73 sq M.predicted among non-blacks MDRD (S/P/Bld) [Vol rate/Area] 58.3 mL/min/{1.73_m2} Abnormal >60 [facility] Comment on above: Result Comment: KDIG O guidelines provide the following GFR categories:Stage GFR(ml/min/1.73 m2) TermsG1 >=90 Normal or highG2 60-89 Mildly decreased*G3a 45-59 Mildly to moderately [id number] 30-44 Moderately to severely decreasedG4 15-29 Severely [...] #### B MP3M, ICA, LFT3, HEMDF, ABG ####[address] [place] [address] Urea nitrogen [Mass/Vol] 15 mg/dL Normal 9-20 [facility] Comment on above: Performed By: #### B MP3M, ICA, LFT3, HEMDF, ABG ####[address] [place] [address] Potassium [Moles/Vol] 3.9 mmol/L Normal 3.5-5.1 [facility] Comment on above: Performed By: #### B MP3M, ICA, LFT3, HEMDF, ABG ####[address] [place] Sodium [Moles/Vol] 138 mmol/L Normal 135-145 [facility] Comment on above: Performed By: #### B MP3M, ICA, LFT3, HEMDF, ABG ####[address] [place], [place] Chloride [Moles/Vol] 111 mmol/L High 98-107 [facility] Comment on above: Performed By: #### B MP3M, ICA, LFT3, HEMDF, ABG ####[address] [place] Calcium [Mass/Vol] 8.1 mg/dL Low 8.4-10.4 [facility] Comment on above: Performed By: #### E TOH4, HEMOG, PT/AP, BMP3, LACT3, TROPN ####[address] [place] Glucose [Mass/Vol] 242 mg/dL High 70-100 [facility] Comment on above: Performed By: #### E TOH4, HEMOG, PT/AP, BMP3, LACT3, TROPN ####[address] [place], [place] Anion gap [Moles/Vol] 7 mmol/L Normal 3-13 [facility] Comment on above: Performed By: #### E TOH4, HEMOG, PT/AP, BMP3, LACT3, TROPN ####[facility] [place], [place] CO2 [Moles/Vol] 23 mmol/L Normal 22-30 [facility] Comment on above: Performed By: #### E TOH4, HEMOG, PT/AP, BMP3, LACT3, TROPN ####[address] [place], [place] Creatinine [Mass/Vol] 1.64 mg/dL High 0.52-1.25 [facility] Comment on above: Performed By: #### E TOH4, HEMOG, PT/AP, BMP3, LACT3, TROPN ####[address] [place], [place] GFR/1.73 sq M.predicted among blacks MDRD (S/P/Bld) [Vol rate/Area] 42.2 mL/min/{1.73_m2} Abnormal >60 [facility] Comment on above: Performed By: #### E TOH4, HEMOG, PT/AP, BMP3, LACT3, TROPN ####[address] [place], [place] GFR/1.73 sq M.predicted among non-blacks MDRD (S/P/Bld) [Vol rate/Area] 36.4 mL/min/{1.73_m2} Abnormal >60 [facility] [facility] Comment on above: Result Comment: KDIG O guidelines provide the following GFR categories:Stage GFR(ml/min/1.73 m2) TermsG1 >=90 Normal or highG2 60-89 Mildly decreased*G3a 45-59 Mildly to moderately rhthgavexW4x 30-44 Moderately to severely decreasedG4 15-29 Severely [...] E TOH4, HEMOG, PT/AP, BMP3, LACT3, TROPN ####[address] [place], [place] Urea nitrogen [Mass/Vol] 15 mg/dL Normal 9-20 [facility] Comment on above: Performed By: #### E TOH4, HEMOG, PT/AP, BMP3, LACT3, TROPN ####[address] [place], [place] Potassium [Moles/Vol] 7.1 mmol/L Critically high 3.5-5.1 [facility] Comment on above: Performed By: #### E TOH4, HEMOG, PT/AP, BMP3, LACT3, TROPN ####[address] [place], [place] Chloride [Moles/Vol] 99 mmol/L Normal 98-107 [facility] Comment on above: Performed By: #### E TOH4, HEMOG, PT/AP, BMP3, LACT3, TROPN ####[address] [place], [place] Sodium [Moles/Vol] 129 mmol/L Low 135-145 [facility] Comment on above: Performed By: #### E TOH4, HEMOG, PT/AP, BMP3, LACT3, TROPN ####[address] COVID and Resp PCR Panelon 1 02-18-2020 SARS-CoV-2 (COVID-19) RNA CAPRICE+probe Ql (Unsp spec) Normal [facility] Comment on above: Performed By: #### B FRP2 ####[address] CR Ankle 3+ Views Bilateralo n 12-18-2020 CR Ankle 3+ Views Bilateral Normal [facility] CR Chest Portableon 12-19-19 21 CR Chest Portable Normal [facility] CR Elbow 3+ Views Bilateralo n 12-18-2020 CR Elbow 3+ Views Bilateral Normal [facility] CR Femur 2+ Views Bilateralo n 12-18-2020 CR Femur 2+ Views Bilateral Normal [facility] CR Forearm 2 Views Bilateral on 12-18-2020 CR Forearm 2 Views Bilateral Normal [facility] CR Hand Complete 3+ Views Bi lateralon 12-18-2020 CR Hand Complete 3+ Views Bilateral Normal [facility] CR Humerus 2+ Views Lefton 1 02-18-2020 CR Humerus 2+ Views Left Normal [facility] CR Humerus 2+ Views Righton 12-18-2020 CR Humerus 2+ Views Right Normal [facility] CR Knee 3 Views Bilateralon 12-18-2020 CR Knee 3 Views Bilateral Normal [facility] CR Pelvis 1 or 2 Viewson CR Pelvis 1 or 2 Views Normal [facility] CR Pelvis Complete Minimum 3 Viewson 12-18-2020 CR Pelvis Complete Minimum 3 Views Normal [facility] CR Tibia/Fibula 2 Views Bila teralon 12-18-2020 CR Tibia/Fibula 2 Views Bilateral Normal [facility] CT Chest/Abdomen/Pelvis (IV Only)on 12-18-2020 CT Chest/Abdomen/Pelvis (IV Only) Normal [facility] CT Head or Brain w/o Contras ton 12-18-2020 CT Head or Brain w/o Contrast Normal [facility] CT Spine Cervical w/o Contra ston 12-18-2020 CT Spine Cervical w/o Contrast Normal [facility] CTA Head/Neck w/ + w/o contr trung 12-18-2020 CTA Head/Neck w/ + w/o contrast Normal [facility] Calcium,Ionizedon 12-18-2020 Ionized Ca,Measured 3.90 mg/dL Low 4.30-5.20 [facility] Comment on above: Performed By: #### B MP3M, ICA, LFT3, HEMDF, ABG ####[facility] [address] [place] [address] pH, Ionized Calcium 7.45 Normal 7.31-7.46 [facility] Comment on above: Performed By: #### B MP3M, ICA, LFT3, HEMDF, ABG ####[facility] [id number] [place], [place] Comp Metabolic Panelon 12-18 ALP [Catalytic activity/Vol] 54 U/L Normal 38-126 [facility] Comment on above: Performed By: #### C MP3, LACT3, HEMDF, PT/AP ####[address] [place], [place] ALT [Catalytic activity/Vol] 45 U/L High 0-34 [facility] Comment on above: Result Comment: The ALT test is performed by an updated assay method.Please note that the reference intervals have beenchanged and are now sex specific. Performed By: #### C MP3, LACT3, HEMDF, PT/AP ####[address] [place], [place] Calcium [Mass/Vol] 7.2 mg/dL Low 8.4-10.4 [facility] Comment on above: Performed By: #### C MP3, LACT3, HEMDF, PT/AP ####[address] [place], [place] Glucose [Mass/Vol] 58 mg/dL Low 70-100 [facility] Comment on above: Performed By: #### C MP3, LACT3, HEMDF, PT/AP ####[address] [place], [place] Protein [Mass/Vol] 4.5 g/dL Low 6.3-8.2 [facility] Comment on above: Performed By: #### C MP3, LACT3, HEMDF, PT/AP ####[address] [place], [place] Urea nitrogen [Mass/Vol] 15 mg/dL Normal 9-20 [facility] Comment on above: Performed By: #### C MP3, LACT3, HEMDF, PT/AP ####[address] [place], [place] Anion gap [Moles/Vol] 1 mmol/L Low 3-13 [facility] Comment on above: Performed By: #### C MP3, LACT3, HEMDF, PT/AP ####[facility] [place] [address] AST [Catalytic activity/Vol] 107 U/L High 15-46 [facility] Comment on above: Performed By: #### C MP3, LACT3, HEMDF, PT/AP ####[facility] [place] [address] Bilirubin [Mass/Vol] 1.1 mg/dL Normal 0.2-1.3 [facility] Comment on above: Performed By: #### C MP3, LACT3, HEMDF, PT/AP ####[address] [place] [address] CO2 [Moles/Vol] 25 mmol/L Normal 22-30 [facility] Comment on above: Performed By: #### C MP3, LACT3, HEMDF, PT/AP ####[address] [place], [place] Creatinine [Mass/Vol] 1.11 mg/dL Normal 0.52-1.25 [facility] Comment on above: Performed By: #### C MP3, LACT3, HEMDF, PT/AP ####[address] [place] [address] GFR/1.73 sq M.predicted among blacks MDRD (S/P/Bld) [Vol rate/Area] 67.6 mL/min/{1.73_m2} Normal >60 [facility] Comment on above: Performed By: #### C MP3, LACT3, HEMDF, PT/AP ####[address] [place] [address] GFR/1.73 sq M.predicted among non-blacks MDRD (S/P/Bld) [Vol rate/Area] 58.3 mL/min/{1.73_m2} Abnormal >60 [facility] Comment on above: Result Comment: KDIG O guidelines provide the following GFR categories:Stage GFR(ml/min/1.73 m2) TermsG1 >=90 Normal or highG2 60-89 Mildly decreased*G3a 45-59 Mildly to moderately vydxlhsagI2n 30-44 Moderately to severely decreasedG4 15-29 Severely [...] By: #### C MP3, LACT3, HEMDF, PT/AP ####[address] [place], [place] Chloride [Moles/Vol] 110 mmol/L High 98-107 [facility] Comment on above: Performed By: #### C MP3, LACT3, HEMDF, PT/AP ####[address] [place], [place] Potassium [Moles/Vol] 3.8 mmol/L Normal 3.5-5.1 [facility] Comment on above: Performed By: #### C MP3, LACT3, HEMDF, PT/AP ####[address] [place], [place] Sodium [Moles/Vol] 135 mmol/L Normal 135-145 [facility] Comment on above: Performed By: #### C MP3, LACT3, HEMDF, PT/AP ####[address] [place], [place] Albumin [Mass/Vol] 2.4 g/dL Low 3.5-5.0 [facility] Comment on above: Performed By: #### C MP3, LACT3, HEMDF, PT/AP ####[address] [place], [place] ALT [Catalytic activity/Vol] 29 U/L Normal 0-34 [facility] Comment on above: Result Comment: The ALT test is performed by an updated assay method.Please note that the reference intervals have beenchanged and are now sex specific. Performed By: #### C MP3, LACT3, ABG, PT/AP, HEMDF ####[address] [facility] [place] Calcium [Mass/Vol] 7.7 mg/dL Low 8.4-10.4 [facility] Comment on above: Performed By: #### C MP3, LACT3, ABG, PT/AP, HEMDF ####[address] [facility] [place] ALP [Catalytic activity/Vol] 47 U/L Normal 38-126 [facility] Comment on above: Performed By: #### C MP3, LACT3, ABG, PT/AP, HEMDF ####[address] [facility] [place] Anion gap [Moles/Vol] 6 mmol/L Normal 3-13 [facility] Comment on above: Performed By: #### C MP3, LACT3, ABG, PT/AP, HEMDF ####[address] [facility] [place] AST [Catalytic activity/Vol] 68 U/L High 15-46 [facility] Comment on above: Performed By: #### C MP3, LACT3, ABG, PT/AP, HEMDF ####[address] [facility] [place] Bilirubin [Mass/Vol] 0.7 mg/dL Normal 0.2-1.3 [facility] Comment on above: Performed By: #### C MP3, LACT3, ABG, PT/AP, HEMDF ####[address] [facility] [place] CO2 [Moles/Vol] 18 mmol/L Low 22-30 [facility] Comment on above: Performed By: #### C MP3, LACT3, ABG, PT/AP, HEMDF ####[address] [place], [place] Creatinine [Mass/Vol] 1.17 mg/dL Normal 0.52-1.25 [facility] Comment on above: Performed By: #### C MP3, LACT3, ABG, PT/AP, HEMDF ####[facility] [address], [place] GFR/1.73 sq M.predicted among blacks MDRD (S/P/Bld) [Vol rate/Area] 63.5 mL/min/{1.73_m2} Normal >60 [facility] Comment on above: Performed By: #### C MP3, LACT3, ABG, PT/AP, HEMDF ####[facility] [employer] [id number] [place], [place] GFR/1.73 sq M.predicted among non-blacks MDRD (S/P/Bld) [Vol rate/Area] 54.7 mL/min/{1.73_m2} Abnormal >60 [facility] Comment on above: Result Comment: KDIG O guidelines provide the following GFR categories:Stage GFR(ml/min/1.73 m2) TermsG1 >=90 Normal or highG2 60-89 Mildly decreased*G3a 45-59 Mildly to moderately tjuonkaoxW1u 30-44 Moderately to severely decreasedG4 15-29 Severely [...] #### C MP3, LACT3, ABG, PT/AP, HEMDF ####[facility] [id number] [place], [place] Glucose [Mass/Vol] 129 mg/dL High 70-100 [facility] Comment on above: Performed By: #### C MP3, LACT3, ABG, PT/AP, HEMDF ####[facility] [id number] [place], [place] Protein [Mass/Vol] 4.4 g/dL Low 6.3-8.2 [facility] Comment on above: Performed By: #### C MP3, LACT3, ABG, PT/AP, HEMDF ####[address] [place], [place] Urea nitrogen [Mass/Vol] 14 mg/dL Normal 9-20 [facility] Comment on above: Performed By: #### C MP3, LACT3, ABG, PT/AP, HEMDF ####[address] [place], [place] Potassium [Moles/Vol] 5.2 mmol/L High 3.5-5.1 [facility] Comment on above: Performed By: #### C MP3, LACT3, ABG, PT/AP, HEMDF ####[address] [place] Albumin [Mass/Vol] 2.3 g/dL Low 3.5-5.0 [facility] Comment on above: Performed By: #### C MP3, LACT3, ABG, PT/AP, HEMDF ####[address] [place], [place] Chloride [Moles/Vol] 111 mmol/L High 98-107 [facility] Comment on above: Performed By: #### C MP3, LACT3, ABG, PT/AP, HEMDF ####[address] [place], [place] Sodium [Moles/Vol] 134 mmol/L Low 135-145 [facility] Comment on above: Performed By: #### C MP3, LACT3, ABG, PT/AP, HEMDF ####[address] [place], [place] ED Provider Noteon ED Provider Note Normal [facility] EXTEM Assayon 12-18-2020 EXTEM, A10 42 mm Low 50-70 [facility] Comment on above: Performed By: #### F IBTM, EXTEM ####[address] [facility] [place] EXTEM, A20 50 mm Normal 50-70 [facility] Comment on above: Performed By: #### F IBTM, EXTEM ####[facility] [facility] [place] EXTEM, Alpha 62 Low 65-80 [facility] Comment on above: Performed By: #### F IBTM, EXTEM ####[address] [facility] [place] EXTEM, Clot Formation Time 147 s High 48-127 [facility] Comment on above: Performed By: #### F IBTM, EXTEM ####[address] [place], [place] EXTEM, Clotting Time 66 s Normal 43-82 [facility] Comment on above: Performed By: #### F IBTM, EXTEM ####[address] [place], [place] EXTEM, Maximal Clot Firmness 53 mm Normal 52-70 [facility] Comment on above: Result Comment: ROTE M viscoelastic testing is not FDA approved forthe pediatric population (<21 years of age) and theattached reference ranges pertain to adults only. Performed By: #### F IBTM, EXTEM ####[address] [place], [place] EXTEM, A10 40 mm Low 50-70 [facility] Comment on above: Performed By: #### E XTEM, FIBTM, APTEM ####[address] [facility] [place] EXTEM, A20 48 mm Low 50-70 [facility] Comment on above: Performed By: #### E XTEM, FIBTM, APTEM ####[address] [facility] [place] EXTEM, Alpha 62 Low 65-80 [facility] Comment on above: Performed By: #### E XTEM, FIBTM, APTEM ####[address] [facility] EXTEM, Clot Formation Time 150 s High 48-127 [facility] Comment on above: Performed By: #### E XTEM, FIBTM, APTEM ####[address] [place] EXTEM, Clotting Time 68 s Normal 43-82 [facility] Comment on above: Performed By: #### E XTEM, FIBTM, APTEM ####[address] [place], [place] EXTEM, Maximal Clot Firmness 51 mm Low 52-70 [facility] Comment on above: Result Comment: ROTE M viscoelastic testing is not FDA approved forthe pediatric population (<21 years of age) and theattached reference ranges pertain to adults only. Performed By: #### E XTEM, FIBTM, APTEM ####[address] [place], [place] EXTEM, A10 51 mm Normal 50-70 [facility] Comment on above: Performed By: #### A PTEM, FIBTM, EXTEM ####[address] [place], [place] EXTEM, A20 59 mm Normal 50-70 [facility] Comment on above: Performed By: #### A PTEM, FIBTM, EXTEM ####[address] [place], [place] EXTEM, Alpha 71 Normal 65-80 [facility] Comment on above: Performed By: #### A PTEM, FIBTM, EXTEM ####[address] [place], [place] EXTEM, Clot Formation Time 96 s Normal 48-127 [facility] Comment on above: Performed By: #### A PTEM, FIBTM, EXTEM ####[address] [place], [place] EXTEM, Clotting Time 66 s Normal 43-82 [facility] Comment on above: Performed By: #### A PTEM, FIBTM, EXTEM ####[address] [place] [address] EXTEM, Maximal Clot Firmness 62 mm Normal 52-70 [facility] Comment on above: Result Comment: ROTE M viscoelastic testing is not FDA approved forthe pediatric population (<21 years of age) and theattached reference ranges pertain to adults only. Performed By: #### A PTEM, FIBTM, EXTEM ####[facility] [address] [facility] [place] [address] Ethanol Serum/Plasmaon 12-18 Ethanol-Serum/Plasma < 0.010 Normal 0.000-0.010 [facility] Comment on above: Result Comment: NOTE : This result is for medical treatment only. Analysis performed using non-forensic procedures. Performed By: #### E TOH4, HEMOG, PT/AP, BMP3, LACT3, TROPN ####[id number] [place] [address] FIBTEM, Assayon 12-18-2020 FIBTEM, A10 9 mm Normal [facility] Comment on above: Performed By: #### F IBTM, EXTEM ####[facility] [address] [facility] [place] [address] FIBTEM, A20 9 mm Normal [facility] Comment on above: Performed By: #### F IBTM, EXTEM ####[facility] [address] [facility] [place] [address] FIBTEM, Maximal Clot Firmness 10 mm Normal 7-24 [facility] Comment on above: Result Comment: ROTE M viscoelastic testing is not FDA approved forthe pediatric population (<21 years of age) and theattached reference ranges pertain to adults only. Performed By: #### F IBTM, EXTEM ####[facility] [id number] [facility] [place] [address] FIBTEM, A10 9 mm Normal [facility] Comment on above: Performed By: #### E XTEM, FIBTM, APTEM ####[facility] [id number] [place] [address] FIBTEM, A20 10 mm Normal [facility] Comment on above: Performed By: #### E XTEM, FIBTM, APTEM ####[facility] [place], [place] FIBTEM, Maximal Clot Firmness 10 mm Normal 7-24 [facility] Comment on above: Result Comment: ROTE M viscoelastic testing is not FDA approved [facility] (<21 years of age) and theattached reference ranges pertain to adults only. Performed By: #### E XTEM, FIBTM, APTEM ####[address] [place], [place] FIBTEM, A10 14 mm Normal [facility] Comment on above: Performed By: #### A PTEM, FIBTM, EXTEM ####[address] [place] FIBTEM, A20 18 mm Normal [facility] Comment on above: Performed By: #### A PTEM, FIBTM, EXTEM ####[address] [place], [place] FIBTEM, Maximal Clot Firmness 19 mm Normal 7-24 [facility] Comment on above: Result Comment: ROTE M viscoelastic testing is not FDA approved forthe pediatric population (<21 years of age) and theattached reference ranges pertain to adults only. Performed By: #### A PTEM, FIBTM, EXTEM ####[address] [place], [place] Hemogramon 12-18-2020 Erythrocyte distribution width (RBC) [Ratio] 15.1 % High 11.5-14.5 [facility] Comment on above: Performed By: #### E TOH4, HEMOG, PT/AP, BMP3, LACT3, TROPN ####[address] [place], [place] Hematocrit (Bld) [Volume fraction] 39.2 % Normal 35.0-47.0 [facility] Comment on above: Performed By: #### E TOH4, HEMOG, PT/AP, BMP3, LACT3, TROPN ####[address] [place], [place] Hemoglobin (Bld) [Mass/Vol] 12.5 g/dL Normal 11.7-16.0 [facility] Comment on above: Performed By: #### E TOH4, HEMOG, PT/AP, BMP3, LACT3, TROPN ####[address] [place], [place] MCH (RBC) [Entitic mass] 28.2 pg Normal 26.0-34.0 [facility] Comment on above: Performed By: #### E TOH4, HEMOG, PT/AP, BMP3, LACT3, TROPN ####[address] MCHC 31.8 % Low 32.0-36.0 [facility] Comment on above: Performed By: #### E TOH4, HEMOG, PT/AP, BMP3, LACT3, TROPN ####[address] [place], [place] MCV (RBC) [Entitic vol] 88.5 fL Normal 79.0-98.0 [facility] Comment on above: Performed By: #### E TOH4, HEMOG, PT/AP, BMP3, LACT3, TROPN ####[address] [place], [place] Platelet mean volume (Bld) [Entitic vol] 8.6 fL Normal 7.4-10.4 [facility] Comment on above: Performed By: #### E TOH4, HEMOG, PT/AP, BMP3, LACT3, TROPN ####[address] [place], [place] Platelets (Bld) [#/Vol] 178 10*3/uL Normal 140-440 [facility] Comment on above: Performed By: #### E TOH4, HEMOG, PT/AP, BMP3, LACT3, TROPN ####[address] [place], [place] RBC (Bld) [#/Vol] 4.44 10*6/uL Normal 3.80-5.20 [facility] Comment on above: Performed By: #### E TOH4, HEMOG, PT/AP, BMP3, LACT3, TROPN ####[address] [place], [place] WBC (Bld) [#/Vol] 19.5 10*3/uL High 3.6-10.7 [facility] Comment on above: Performed By: #### E TOH4, HEMOG, PT/AP, BMP3, LACT3, TROPN ####[address] [place], [place] Hemogram w/ Autodiffon 12-18 Abs Baso Cnt 0.1 10*3/uL Normal 0.0-0.2 [facility] Comment on above: Performed By: #### C MP3, LACT3, HEMDF, PT/AP ####[address] Abs Neutrophile Cnt 8.6 10*3/uL High 1.8-7.0 [facility] Comment on above: Performed By: #### C MP3, LACT3, HEMDF, PT/AP ####[address] [place], [place] Basophils/100 WBC (Bld) 0.5 % Normal 0.0-2.0 [facility] Comment on above: Performed By: #### C MP3, LACT3, HEMDF, PT/AP ####[address] Eosinophils (Bld) [#/Vol] 0.1 10*3/uL Normal 0.0-0.5 [facility] Comment on above: Performed By: #### C MP3, LACT3, HEMDF, PT/AP ####[address] Eosinophils/100 WBC (Bld) 0.5 % Low 1.0-6.0 [facility] Comment on above: Performed By: #### C MP3, LACT3, HEMDF, PT/AP ####[address] [place], [place] Erythrocyte distribution width (RBC) [Ratio] 15.3 % High 11.5-14.5 [facility] Comment on above: Performed By: #### C MP3, LACT3, HEMDF, PT/AP ####[address] [place], [place] Granulocytes/100 WBC (Bld) 83.9 % High 40.0-80.0 [facility] Comment on above: Performed By: #### C MP3, LACT3, HEMDF, PT/AP ####[address] Hematocrit (Bld) [Volume fraction] 28.7 % Low 35.0-47.0 [facility] Comment on above: Performed By: #### C MP3, LACT3, HEMDF, PT/AP ####[address] [place], [place] Hemoglobin (Bld) [Mass/Vol] 9.5 g/dL Low 11.7-16.0 [facility] Comment on above: Performed By: #### C MP3, LACT3, HEMDF, PT/AP ####[address] Lymphocytes (Bld) [#/Vol] 1.2 10*3/uL Normal 1.0-4.3 [facility] Comment on above: Performed By: #### C MP3, LACT3, HEMDF, PT/AP ####[address] Lymphocytes/100 WBC (Bld) 11.3 % Low 20.0-40.0 [facility] Comment on above: Performed By: #### C MP3, LACT3, HEMDF, PT/AP ####[address] MCH (RBC) [Entitic mass] 28.9 pg Normal 26.0-34.0 [facility] Comment on above: Performed By: #### C MP3, LACT3, HEMDF, PT/AP ####[address] MCHC 33.2 % Normal 32.0-36.0 [facility] Comment on above: Performed By: #### C MP3, LACT3, HEMDF, PT/AP ####[address] [place], [place] MCV (RBC) [Entitic vol] 86.9 fL Normal 79.0-98.0 [facility] Comment on above: Performed By: #### C MP3, LACT3, HEMDF, PT/AP ####[address] [place], [place] Monocytes (Bld) [#/Vol] 0.4 10*3/uL Normal 0.0-0.8 [facility] Comment on above: Performed By: #### C MP3, LACT3, HEMDF, PT/AP ####[address] [place], [place] Monocytes/100 WBC (Bld) 3.8 % Normal 2.0-10.0 [facility] Comment on above: Performed By: #### C MP3, LACT3, HEMDF, PT/AP ####[address] [place], [place] Platelet mean volume (Bld) [Entitic vol] 7.7 fL Normal 7.4-10.4 [facility] Comment on above: Performed By: #### C MP3, LACT3, HEMDF, PT/AP ####[address] [place] Platelets (Bld) [#/Vol] 106 10*3/uL Low 140-440 [facility] Comment on above: Performed By: #### C MP3, LACT3, HEMDF, PT/AP ####[address] [place] RBC (Bld) [#/Vol] 3.30 10*6/uL Low 3.80-5.20 [facility] Comment on above: Performed By: #### C MP3, LACT3, HEMDF, PT/AP ####[address] [place] WBC (Bld) [#/Vol] 10.3 10*3/uL Normal 3.6-10.7 [facility] Comment on above: Performed By: #### C MP3, LACT3, HEMDF, PT/AP ####[address] [place] Abs Baso Cnt 0.1 10*3/uL Normal 0.0-0.2 [facility] Comment on above: Performed By: #### C MP3, LACT3, ABG, PT/AP, HEMDF ####[address] [place], [place] Abs Neutrophile Cnt 9.7 10*3/uL High 1.8-7.0 [facility] Comment on above: Performed By: #### C MP3, LACT3, ABG, PT/AP, HEMDF ####[address] [place], [place] Basophils/100 WBC (Bld) 0.5 % Normal 0.0-2.0 [facility] Comment on above: Performed By: #### C MP3, LACT3, ABG, PT/AP, HEMDF ####[address] [place] Eosinophils (Bld) [#/Vol] 0.1 10*3/uL Normal 0.0-0.5 [facility] Comment on above: Performed By: #### C MP3, LACT3, ABG, PT/AP, HEMDF ####[address] [place] Eosinophils/100 WBC (Bld) 0.7 % Low 1.0-6.0 [facility] Comment on above: Performed By: #### C MP3, LACT3, ABG, PT/AP, HEMDF ####[address] [place] Erythrocyte distribution width (RBC) [Ratio] 15.5 % High 11.5-14.5 [facility] Comment on above: Performed By: #### C MP3, LACT3, ABG, PT/AP, HEMDF ####[address] [place] Granulocytes/100 WBC (Bld) 81.9 % High 40.0-80.0 [facility] Comment on above: Performed By: #### C MP3, LACT3, ABG, PT/AP, HEMDF ####[address] [id number] [place], [place] Hematocrit (Bld) [Volume fraction] 32.4 % Low 35.0-47.0 [facility] Comment on above: Performed By: #### C MP3, LACT3, ABG, PT/AP, HEMDF ####[address] [id number] [place], [place] Hemoglobin (Bld) [Mass/Vol] 10.3 g/dL Low 11.7-16.0 [facility] Comment on above: Result Comment: REPE ATED Performed By: #### C MP3, LACT3, ABG, PT/AP, HEMDF ####[place] [place] [id number] [place], [place] Lymphocytes (Bld) [#/Vol] 1.8 10*3/uL Normal 1.0-4.3 [facility] Comment on above: Performed By: #### C MP3, LACT3, ABG, PT/AP, HEMDF ####[id number] [place], [place] Lymphocytes/100 WBC (Bld) 15.5 % Low 20.0-40.0 [facility] Comment on above: Performed By: #### C MP3, LACT3, ABG, PT/AP, HEMDF ####[address] [place], [place] MCH (RBC) [Entitic mass] 28.2 pg Normal 26.0-34.0 [facility] Comment on above: Performed By: #### C MP3, LACT3, ABG, PT/AP, HEMDF ####[address] [place], [place] MCHC 31.9 % Low 32.0-36.0 [facility] Comment on above: Performed By: #### C MP3, LACT3, ABG, PT/AP, HEMDF ####[address] [place], [place] MCV (RBC) [Entitic vol] 88.6 fL Normal 79.0-98.0 [facility] Comment on above: Performed By: #### C MP3, LACT3, ABG, PT/AP, HEMDF ####[address] [place], [place] Monocytes (Bld) [#/Vol] 0.2 10*3/uL Normal 0.0-0.8 [facility] Comment on above: Performed By: #### C MP3, LACT3, ABG, PT/AP, HEMDF ####[address] Monocytes/100 WBC (Bld) 1.4 % Low 2.0-10.0 [facility] Comment on above: Performed By: #### C MP3, LACT3, ABG, PT/AP, HEMDF ####[address] [place], [place] Platelet mean volume (Bld) [Entitic vol] 7.6 fL Normal 7.4-10.4 [facility] Comment on above: Performed By: #### C MP3, LACT3, ABG, PT/AP, HEMDF ####[address] [place], [place] Platelets (Bld) [#/Vol] 119 10*3/uL Low 140-440 [facility] Comment on above: Result Comment: REPE ATED Performed By: #### C MP3, LACT3, ABG, PT/AP, HEMDF ####[address] [place], [place] RBC (Bld) [#/Vol] 3.66 10*6/uL Low 3.80-5.20 [facility] Comment on above: Performed By: #### C MP3, LACT3, ABG, PT/AP, HEMDF ####[address] [place], [place] WBC (Bld) [#/Vol] 11.9 10*3/uL High 3.6-10.7 [facility] Comment on above: Performed By: #### C MP3, LACT3, ABG, PT/AP, HEMDF ####[address] [place], [place] Hepatic Functionon ALP [Catalytic activity/Vol] 56 U/L Normal 38-126 [facility] Comment on above: Performed By: #### B MP3M, ICA, LFT3, HEMDF, ABG ####[address] [place], [place] ALT [Catalytic activity/Vol] 44 U/L High 0-34 [facility] Comment on above: Result Comment: The ALT test is performed by an updated assay method.Please note that the reference intervals have beenchanged and are now sex specific. Performed By: #### B MP3M, ICA, LFT3, HEMDF, ABG ####[address] [place], [place] AST [Catalytic activity/Vol] 108 U/L High 15-46 [facility] Comment on above: Performed By: #### B MP3M, ICA, LFT3, HEMDF, ABG ####[address] [place], [place] Bilirubin [Mass/Vol] 1.2 mg/dL Normal 0.2-1.3 [facility] Comment on above: Performed By: #### B MP3M, ICA, LFT3, HEMDF, ABG ####[address] [place], [place] Bilirubin.indirect [Mass/Vol] 0.0 mg/dL Normal 0.0-0.3 [facility] Comment on above: Performed By: #### B MP3M, ICA, LFT3, HEMDF, ABG ####[address] [place], [place] Protein [Mass/Vol] 4.4 g/dL Low 6.3-8.2 [facility] Comment on above: Performed By: #### B MP3M, ICA, LFT3, HEMDF, ABG ####[address] [place], [place] Albumin [Mass/Vol] 2.3 g/dL Low 3.5-5.0 [facility] Comment on above: Performed By: #### B MP3M, ICA, LFT3, HEMDF, ABG ####[address] [place], [place] Lactic Acidon 12-18-2020 Lactate [Moles/Vol] 1.4 mmol/L Normal 0.7-2.0 [facility] Comment on above: Performed By: #### C MP3, LACT3, HEMDF, PT/AP ####[address] [place], [place] Lactate [Moles/Vol] 3.9 mmol/L Critically high 0.7-2.0 [facility] Comment on above: Result Comment: Crit [facility] Panic Lactate has fallen below the [facility] CCL/EDPanic Call Protocol. For [facility] ED patients ONLY the LactateLevels greater than 2.0 and less than or equal to 4.0 mmol/Lfall under the Panic Call Policy. Performed By: #### C MP3, LACT3, ABG, PT/AP, HEMDF ####[address] [place], [place] Lactate [Moles/Vol] 4.7 mmol/L Critically high 0.7-2.0 [facility] Comment on above: Performed By: #### E TOH4, HEMOG, PT/AP, BMP3, LACT3, TROPN ####[address] [place], [place] Leukodepleted Red Cellson Leukodepleted Red Cells Normal [facility] Comment on above: Performed By: #### P RP, LRC, SDP, CR5 ####[address] [address]#### TSGL ####[facility] Leukodepleted Red Cells Normal [facility] Comment on above: Performed By: #### P RP, LRC, SDP, CR5 ####[address] [address]#### TSGL ####[facility] Op Noteon 12-18-2020 Op Note Normal [facility] PATHOGEN REDUCED LR PPHRon 1 02-18-2020 PATHOGEN REDUCED LR PPHR Normal [facility] Comment on above: Performed By: #### P RP, LRC, SDP, CR5 ####[address] [address]#### TSGL ####[facility] Protime AND APTTon aPTT Coag (Bld) [Time] 30.8 s High 20.0-30.5 [facility] Comment on above: Result Comment: NOTE : The therapeutic time for Heparin anticoagulation,based on Xa activity inhibition, is an APTT of 46-80seconds. Performed By: #### C MP3, LACT3, HEMDF, PT/AP ####[address] [place] [address] INR 1.2 High 0.9-1.1 [facility] Comment on above: Result Comment: Leno [...] By: #### C MP3, LACT3, HEMDF, PT/AP ####[address] [place] [address] PT Coag (PPP) [Time] 13.0 s High 9.0-12.0 [facility] Comment on above: Result Comment: . Performed By: #### C MP3, LACT3, HEMDF, PT/AP ####[facility] [employer] [id number] [place], [place] aPTT Coag (Bld) [Time] 32.2 s High 20.0-30.5 [facility] Comment on above: Result Comment: NOTE : The therapeutic time for Heparin anticoagulation,based on Xa activity inhibition, is an APTT of 46-80seconds. Performed By: #### C MP3, LACT3, ABG, PT/AP, HEMDF ####[facility] [employer] [id number] [place], [place] INR 1.3 High 0.9-1.1 [facility] Comment on above: Result Comment: Leno [...] #### C MP3, LACT3, ABG, PT/AP, HEMDF ####[facility] [employer] [id number] [place], [place] PT Coag (PPP) [Time] 13.4 s High 9.0-12.[address] [facility] [employer] [facility] Comment on above: Result Comment: . Performed By: #### C MP3, LACT3, ABG, PT/AP, HEMDF ####[facility] [employer] [id number] [place], [place] aPTT Coag (Bld) [Time] 29.6 s Normal 20.0-30.5 [facility] Comment on above: Result Comment: NOTE : The therapeutic time for Heparin anticoagulation,based on Xa activity inhibition, is an APTT of 46-80seconds. Performed By: #### E TOH4, HEMOG, PT/AP, BMP3, LACT3, TROPN ####[facility] [employer] [id number] [place], [place] INR 1.0 Normal 0.9-1.1 [facility] Comment on above: Result Comment: Leno [...] E TOH4, HEMOG, PT/AP, BMP3, LACT3, TROPN ####[address] PT Coag (PPP) [Time] 11.0 s Normal 9.0-12.0 [facility] Comment on above: Result Comment: . Performed By: #### E TOH4, HEMOG, PT/AP, BMP3, LACT3, TROPN ####[address] Single Donor Plasma (CP2D)on 12-18-2020 Single Donor Plasma (CP2D) Normal [facility] Comment on above: Performed By: #### P RP, LRC, SDP, CR5 ####[address] [address]#### TSGL ####[facility] Surgical Pathologyon 021 Surgical Pathology Normal [facility] TS GELon 12-18-2020 TS GEL ABO Group: A Rh, Gel: POS Antibody Screen Gel: NEG Normal [facility] Comment on above: Performed By: #### P RP, LRC, SDP, CR5 ####[address] [address]#### TSGL ####[facility] TYPE AND SCREENon 12-18-2020 ABO and Rh group Nom (Bld) Blood group A Rh(D) positive Normal [facility] Comment on above: Performed By: #### T S #### [facility] [address] [place] [address], ABO and Rh group Nom (Bld) No Previous Results Normal [facility] Comment on above: Performed By: #### T S #### [facility] [address], [place], ABSC INT Negative Normal [facility] Comment on above: Result Comment: T&S TESTING PERFORMED BY RC Performed By: #### T S #### [facility] [address], [place], Troponin Ion 12-18-2020 Troponin I.cardiac [Mass/Vol] 0.014 ng/mL Normal 0.000-0.034 [facility] Comment on above: Result Comment: . Performed By: #### E TOH4, HEMOG, PT/AP, BMP3, LACT3, TROPN ####[facility] [place] [address] HEPACon 08-05-2020 Hep A IgM Ab Non-Reactive Normal Non-Reactive [facility] ([place]) Comment on above: Performed By: #### C BC, FES, LIPID, ADIFF, TSH, BMP, MG, ANEU #### [address] [address] #### VIDH, GFR, T4, A1C, HEPAC #### [address] [address] Hep A IgM Ab Int Normal [facility] ([place]) Comment on above: Result Comment: No s erological evidence of a current Hepatitis A infection. See Interp Performed By: #### C BC, FES, LIPID, ADIFF, TSH, BMP, MG, ANEU #### [address] [address] #### VIDH, GFR, T4, A1C, HEPAC #### [address] [address] Hep B Core IgM Ab Non-Reactive Normal Non-Reactive [facility] ([place]) Comment on above: Performed By: #### C BC, FES, LIPID, ADIFF, TSH, BMP, MG, ANEU #### [address] [address] #### VIDH, GFR, T4, A1C, HEPAC #### [place] [id number] Hep B Core IgM Ab Int Normal [facility] ([place]) Comment on above: Result Comment: Samp les with a value < 0.80 Index are considered nonreactive (negative) for IgM antibodies to hepatitis B core antigen. See Interp Performed By: #### C BC, FES, LIPID, ADIFF, TSH, BMP, MG, ANEU #### [place] [address] #### VIDH, GFR, T4, A1C, HEPAC #### [place] [id number] Hep B Surf Ag Non-Reactive Normal Non-Reactive [facility] ([place]) Comment on above: Performed By: #### C BC, FES, LIPID, ADIFF, TSH, BMP, MG, ANEU #### [place] [address] #### VIDH, GFR, T4, A1C, HEPAC #### [place] [address] Hep C Ab Reactive Abnormal Non-Reactive [facility] ([place]) Comment on above: Performed By: #### C BC, FES, LIPID, ADIFF, TSH, BMP, MG, ANEU #### [place] [address] #### VIDH, GFR, T4, A1C, HEPAC #### [place] [address] Hep C Ab Int Normal [facility] ([place]) Comment on above: Result Comment: Reac tive: Samples with a value >/= 1.00 index are considered reactive for IgG antibodies to HCV. The presence of anti-HCV may be indicative of recent and/or past infection by Hepatitis C Virus. PATIENT MAY BE INFECTIONS. PLEASE INFORM NEW ACCOUNT INTERVIEWER. Supplemental testing for HCV RNA may detect the presence of active HCV infection. This result is a reportable disease Infection Control has been notified. See Interp Performed By: #### C BC, FES, LIPID, ADIFF, TSH, BMP, MG, ANEU #### [address] [address] #### VIDH, GFR, T4, A1C, HEPAC #### [address] [address] T4on 08-05-2020 T4 [Mass/Vol] 5.6 ug/dL Normal 4.5-10.9 [facility] ([place]) Comment on above: Result Comment: No te - New Reference Range in effect 19 Performed By: #### C BC, FES, LIPID, ADIFF, TSH, BMP, MG, ANEU #### [place] [address] #### VIDH, GFR, T4, A1C, HEPAC #### [place] [address] VIDHon 08-05-2020 Vit. D 25-Hydroxy 20.0 ng/mL Normal [facility] ([place]) Comment on above: Result Comment: Inte rpretive Values Based on Total 25(OH)D: Severe Deficiency <20 ng/mL Mild to Moderate Deficiency 20-30 ng/mL Optimum Levels 30-100 ng/mL Toxicity Possible >100 ng/mL Performed By: #### C BC, FES, LIPID, ADIFF, TSH, BMP, MG, ANEU #### [place] [address] #### VIDH, GFR, T4, A1C, HEPAC #### [address] [address] .Auto Diffon 08-04-2020 Basophil, Absolute 0.10 10 3/mcL Normal 0.00-0.19 [facility] ([place]) Comment on above: Performed By: #### C BC, FES, LIPID, ADIFF, TSH, BMP, MG, ANEU #### [place] [address] #### VIDH, GFR, T4, A1C, HEPAC #### [place] [address] Basophils/100 WBC (Bld) 0.7 % Normal 0.0-2.5 [facility] ([place]) Comment on above: Performed By: #### C BC, FES, LIPID, ADIFF, TSH, BMP, MG, ANEU #### [address] [address] #### VIDH, GFR, T4, A1C, HEPAC #### [address] [address] Eosinophil, Absolute 0.20 10 3/mcL Normal 0.00-0.40 A [facility] ([place]) Comment on above: Performed By: #### C BC, FES, LIPID, ADIFF, TSH, BMP, MG, ANEU #### [address] [address] #### VIDH, GFR, T4, A1C, HEPAC #### [address] [address] Eosinophils/100 WBC (Bld) 2.6 % Normal 0.0-7.0 [facility] ([place]) Comment on above: Performed By: #### C BC, FES, LIPID, ADIFF, TSH, BMP, MG, ANEU #### [address] [address] #### VIDH, GFR, T4, A1C, HEPAC #### [address] [address] Lymphocyte, Absolute 2.30 10 3/mcL Normal 0.77-3.85 A [facility] ([place]) Comment on above: Performed By: #### C BC, FES, LIPID, ADIFF, TSH, BMP, MG, ANEU #### [address] [address] #### VIDH, GFR, T4, A1C, HEPAC #### [address] [address] Lymphocytes/100 WBC (Bld) 26.3 % Normal 10.0-50.0 [facility] ([place]) Comment on above: Performed By: #### C BC, FES, LIPID, ADIFF, TSH, BMP, MG, ANEU #### [place] [address] #### VIDH, GFR, T4, A1C, HEPAC #### [address] [address] Monocyte, Absolute 0.20 10 3/mcL Normal 0.15-1.00 [facility] ([place]) Comment on above: Performed By: #### C BC, FES, LIPID, ADIFF, TSH, BMP, MG, ANEU #### [address] [address] #### VIDH, GFR, T4, A1C, HEPAC #### [address] [address] Monocytes/100 WBC (Bld) 2.8 % Normal 1.7-13.0 [facility] ([place]) Comment on above: Performed By: #### C BC, FES, LIPID, ADIFF, TSH, BMP, MG, ANEU #### [address] [address] #### VIDH, GFR, T4, A1C, HEPAC #### [address] [address] Neutrophils/100 WBC (Bld) 67.6 % Normal 37.0-80.0 [facility] ([place]) Comment on above: Performed By: #### C BC, FES, LIPID, ADIFF, TSH, BMP, MG, ANEU #### [address] [address] #### VIDH, GFR, T4, A1C, HEPAC #### [address] [address] .GFRon 08-04-2020 GFR 93 ml/min/1.73sqm Normal [facility] ([place]) Comment on above: Result Comment: GFR Population [...] LIPID, ADIFF, TSH, BMP, MG, ANEU #### [address] [address] #### VIDH, GFR, T4, A1C, HEPAC #### [address] [address] GFR Non- 77 ml/min/1.73sqm Normal [facility] ([place]) Comment on above: Result Comment: GFR Population [...] LIPID, ADIFF, TSH, BMP, MG, ANEU #### [address] [address] #### VIDH, GFR, T4, A1C, HEPAC #### [address] [address] .NEUABSon 08-04-2020 Neutrophil, Absolute 5.90 10 3/mcL Normal 2.85-6.16 A [facility] ([place]) Comment on above: Performed By: #### C BC, FES, LIPID, ADIFF, TSH, BMP, MG, ANEU #### [address] [address] #### VIDH, GFR, T4, A1C, HEPAC #### [address] [address] A1Con 08-04-2020 HbA1c (Bld) [Mass fraction] 5.6 % Normal 4.3-6.4 [facility] ([place]) Comment on above: Performed By: #### C BC, FES, LIPID, ADIFF, TSH, BMP, MG, ANEU #### [address] [address] #### VIDH, GFR, T4, A1C, HEPAC #### [address] [address] BMPon 08-04-2020 BUN/Creatinine Ratio 18 ratio Normal 7-27 [facility] ([place]) Comment on above: Performed By: #### C BC, FES, LIPID, ADIFF, TSH, BMP, MG, ANEU #### [address] [address] #### VIDH, GFR, T4, A1C, HEPAC #### [address] [address] Calcium [Mass/Vol] 8.7 mg/dL Normal 8.4-10.2 [facility] ([place]) Comment on above: Performed By: #### C BC, FES, LIPID, ADIFF, TSH, BMP, MG, ANEU #### [address] [address] #### VIDH, GFR, T4, A1C, HEPAC #### [address] [address] Chloride [Moles/Vol] 99 mmol/L Normal 98-107 [facility] ([place]) Comment on above: Performed By: #### C BC, FES, LIPID, ADIFF, TSH, BMP, MG, ANEU #### [address] [address] #### VIDH, GFR, T4, A1C, HEPAC #### [address] [address] CO2 [Moles/Vol] 29 mmol/L Normal 22-29 [facility] ([place]) Comment on above: Performed By: #### C BC, FES, LIPID, ADIFF, TSH, BMP, MG, ANEU #### [address] [address] #### VIDH, GFR, T4, A1C, HEPAC #### [address] [address] Creatinine [Mass/Vol] 0.80 mg/dL Normal 0.55-1.02 [facility] ([place]) Comment on above: Performed By: #### C BC, FES, LIPID, ADIFF, TSH, BMP, MG, ANEU #### [address] [address] #### VIDH, GFR, T4, A1C, HEPAC #### [address] [address] Electrolyte Balance 9.0 mEq/L Normal [facility] ([place]) Comment on above: Performed By: #### C BC, FES, LIPID, ADIFF, TSH, BMP, MG, ANEU #### [place] [address] #### VIDH, GFR, T4, A1C, HEPAC #### [address] [address] Glucose [Mass/Vol] 78 mg/dL Normal 70-105 [facility] ([place]) Comment on above: Performed By: #### C BC, FES, LIPID, ADIFF, TSH, BMP, MG, ANEU #### [address] [address] #### VIDH, GFR, T4, A1C, HEPAC #### [address] [address] Potassium [Moles/Vol] 5.4 mmol/L High 3.5-5.1 [facility] ([place]) Comment on above: Performed By: #### C BC, FES, LIPID, ADIFF, TSH, BMP, MG, ANEU #### [address] [address] #### VIDH, GFR, T4, A1C, HEPAC #### [address] [address] Sodium [Moles/Vol] 137 mmol/L Normal 136-145 [facility] ([place]) Comment on above: Performed By: #### C BC, FES, LIPID, ADIFF, TSH, BMP, MG, ANEU #### [address] [address] #### VIDH, GFR, T4, A1C, HEPAC #### [address] [address] Urea nitrogen [Mass/Vol] 14 mg/dL Normal 7-18 [facility] ([place]) Comment on above: Performed By: #### C BC, FES, LIPID, ADIFF, TSH, BMP, MG, ANEU #### [place] [address] #### VIDH, GFR, T4, A1C, HEPAC #### [address] [address] CBCon 08-04-2020 Erythrocyte distribution width (RBC) [Ratio] 13.4 % Normal 11.5-14.5 [facility] ([place]) Comment on above: Performed By: #### C BC, FES, LIPID, ADIFF, TSH, BMP, MG, ANEU #### [address] [address] #### VIDH, GFR, T4, A1C, HEPAC #### [address] [address] Hematocrit (Bld) [Volume fraction] 41.3 % Normal 37.0-47.0 [facility] ([place]) Comment on above: Performed By: #### C BC, FES, LIPID, ADIFF, TSH, BMP, MG, ANEU #### [address] [address] #### VIDH, GFR, T4, A1C, HEPAC #### [address] [address] Hgb 14.1 G/dL Normal 12.0-16.0 [facility] ([place]) Comment on above: Performed By: #### C BC, FES, LIPID, ADIFF, TSH, BMP, MG, ANEU #### [place] [address] #### VIDH, GFR, T4, A1C, HEPAC #### [place] [address] MCH (RBC) [Entitic mass] 29.4 pg Normal 27.0-31.2 [facility] ([place] Comment on above: Performed By: #### C BC, FES, LIPID, ADIFF, TSH, BMP, MG, ANEU #### [place] [address] #### VIDH, GFR, T4, A1C, HEPAC #### [place] [address] MCHC 34.1 G/dL Normal 33.0-37.0 [facility] ([place] Comment on above: Performed By: #### C BC, FES, LIPID, ADIFF, TSH, BMP, MG, ANEU #### [place] [address] #### VIDH, GFR, T4, A1C, HEPAC #### [place] [address] MCV (RBC) [Entitic vol] 86.2 fL Normal 80.0-94.0 [facility] ([place] Comment on above: Performed By: #### C BC, FES, LIPID, ADIFF, TSH, BMP, MG, ANEU #### [place] [address] #### VIDH, GFR, T4, A1C, HEPAC #### [place] [address] Platelet 281 10 3/mcL Normal 130-400 [facility] ([place]) Comment on above: Performed By: #### C BC, FES, LIPID, ADIFF, TSH, BMP, MG, ANEU #### [place] [address] #### VIDH, GFR, T4, A1C, HEPAC #### [place] [address] Platelet mean volume (Bld) [Entitic vol] 7.8 fL Normal 7.4-10.4 [facility] ([place]) Comment on above: Performed By: #### C BC, FES, LIPID, ADIFF, TSH, BMP, MG, ANEU #### [place] [address] #### VIDH, GFR, T4, A1C, HEPAC #### [place] [address] RBC 4.79 10 6/mcL Normal 4.20-5.40 [facility] ([place] Comment on above: Performed By: #### C BC, FES, LIPID, ADIFF, TSH, BMP, MG, ANEU #### [place] [address] #### VIDH, GFR, T4, A1C, HEPAC #### [place] [address] WBC 8.80 10 3/mcL Normal 4.60-10.80 [facility] ([place]) Comment on above: Performed By: #### C BC, FES, LIPID, ADIFF, TSH, BMP, MG, ANEU #### [place] [address] #### VIDH, GFR, T4, A1C, HEPAC #### [address] 08-04-2020 Iron [Mass/Vol] 81 ug/dL Normal 50-170 [facility] ([place]) Comment on above: Performed By: #### C BC, FES, LIPID, ADIFF, TSH, BMP, MG, ANEU #### [place] [address] #### VIDH, GFR, T4, A1C, HEPAC #### [place] [address] Iron Sat 27 % Normal [facility] ([place] Comment on above: Performed By: #### C BC, FES, LIPID, ADIFF, TSH, BMP, MG, ANEU #### [place] [address] #### VIDH, GFR, T4, A1C, HEPAC #### [address] [address] TIBC 296 mcg/dL Normal 250-450 [facility] ([place] Comment on above: Performed By: #### C BC, FES, LIPID, ADIFF, TSH, BMP, MG, ANEU #### [address] [address] #### VIDH, GFR, T4, A1C, HEPAC #### [address] [address] LIPIDon 08-04-2020 Cholesterol [Mass/Vol] 219 mg/dL High 0-200 [facility] ([place]) Comment on above: Result Comment: Chol esterol Reference Interval: Less than 200 Desirable 200-239 Borderline high risk 240 and above High risk Performed By: #### C BC, FES, LIPID, ADIFF, TSH, BMP, MG, ANEU #### [address] [address] #### VIDH, GFR, T4, A1C, HEPAC #### [address] [address] Cholesterol in HDL [Mass/Vol] 35 mg/dL Low 40-60 [facility] ([place]) Comment on above: Performed By: #### C BC, FES, LIPID, ADIFF, TSH, BMP, MG, ANEU #### [address] [address] #### VIDH, GFR, T4, A1C, HEPAC #### [address] [address] Cholesterol in LDL [Mass/Vol] 139 mg/dL High 0-130 [facility] ([place]) Comment on above: Performed By: #### C BC, FES, LIPID, ADIFF, TSH, BMP, MG, ANEU #### [address] [address] #### VIDH, GFR, T4, A1C, HEPAC #### [address] [address] Triglyceride [Mass/Vol] 226 mg/dL High 0-150 [facility] ([place]) Comment on above: Result Comment: Trig lyceride Reference Interval: Less than 150 Normal 150-199 Borderline high risk 200-499 High risk 500 or higher Very high risk Performed By: #### C BC, FES, LIPID, ADIFF, TSH, BMP, MG, ANEU #### [address] [address] #### VIDH, GFR, T4, A1C, HEPAC #### [address] [address] MGon 08-04-2020 Magnesium [Mass/Vol] 2.1 mg/dL Normal 1.8-2.4 [facility] ([place]) Comment on above: Performed By: #### C BC, FES, LIPID, ADIFF, TSH, BMP, MG, ANEU #### [address] [address] #### VIDH, GFR, T4, A1C, HEPAC #### [address] [address] TSHon 08-04-2020 TSH Qn 5.07 m[IU]/L High 0.36-3.74 [facility] ([place]) Comment on above: Performed By: #### C BC, FES, LIPID, ADIFF, TSH, BMP, MG, ANEU #### [address] [address] #### VIDH, GFR, T4, A1C, HEPAC #### [address] [address] Anaerobic Cultureon 01-11-20 19 Anaerobic Culture No growth of anaerob es at 5 days. [place], [place] Test Performed by [address] [address] [place] Anaerobic Culture No growth of anaerob es at 5 days. [place] Test Performed by [address] [address] [place] CBC auto differentialon 12-19 Absolute Baso # 0.1 10*3/uL 0 - 0.2 10*3/uL [place] Absolute Neut # 8.1 10*3/uL High 1.8 - 7 10*3/uL [place] Basophils/100 WBC (Bld) 0.8 % 0 - 2 % [place] Eosinophils (Bld) [#/Vol] 0.2 10*3/uL 0 - 0.5 10*3/uL [place] Eosinophils/100 WBC (Bld) 2.3 % 1 - 6 % [place] Erythrocyte distribution width (RBC) [Ratio] 13.2 % 11.5 - 14.5 % [place] Granulocytes/100 WBC (Bld) 78.9 % 40 - 80 % [place] Hematocrit (Bld) [Volume fraction] 22.6 % Low 35 - 47 % [place] Hemoglobin (Bld) [Mass/Vol] 7.6 g/dL Low 11.7 - 16 g/dL [place] Interpretation and review of laboratory results Abnormal [place] Lymphocytes (Bld) [#/Vol] 1.5 10*3/uL 1 - 4.3 10*3/uL [place] Lymphocytes/100 WBC (Bld) 14.1 % Low 20 - 40 % [place] MCH (RBC) [Entitic mass] 28.8 pg 26 - 34 pg [place] MCHC (RBC) [Mass/Vol] 33.5 % 32 - 36 % [place] MCV (RBC) [Entitic vol] 85.9 fL 79 - 98 fL [place] Monocytes (Bld) [#/Vol] 0.4 10*3/uL 0 - 0.8 10*3/uL [place] Monocytes/100 WBC (Bld) 3.9 % 2 - 10 % [place] Platelet mean volume (Bld) [Entitic vol] 6.3 fL Low 7.4 - 10.4 fL [place] Platelets (Bld) [#/Vol] 420 10*3/uL 140 - 440 10*3/uL [place] RBC (Bld) [#/Vol] 2.63 10*6/uL Low 3.8 - 5.2 10*6/uL [place] WBC (Bld) [#/Vol] 10.3 10*3/uL 3.6 - 10.7 10*3/uL [place] Test Performed by [facility], [address], [place], [place] [address] [place] Comprehensive Metabolic Pane corey 01-10-2019 Albumin [Mass/Vol] 2.4 g/dL Low 3.5 - 5 g/dL [place] ALP [Catalytic activity/Vol] 128 U/L High 38 - 126 U/L [place] ALT [Catalytic activity/Vol] 30 U/L 13 - 69 U/L [place] Anion gap [Moles/Vol] 3 mmol/L [place] AST [Catalytic activity/Vol] 19 U/L 15 - 46 U/L [place] [place] Bilirubin Ql (U) 0.2 mg/dL 0.2 - 1.3 mg/dL [place] Calcium [Mass/Vol] 8.0 mg/dL Low 8.4 - 10. 4 mg/dL [place] Chloride [Moles/Vol] 108 mmol/L High 98 - 10 7 mmol/L [place] CO2 [Moles/Vol] 26 mmol/L 22 - 30 mmol/L [place] Creatinine [Mass/Vol] 1.22 mg/dL 0.52 - 1.25 mg/dL [place] EGFR IF NonAfrican [place] 47.3 mL/min >60 [place] Comment on above: Source- MDRD equatio n with creatinine calibration to IDMS(NKDEP) eGFR not recommended for drug dose adjustment GFR/1.73 sq M predicted among blacks MDRD (S/P/Bld) [Vol rate/Area] 57.3 mL/min/{1.73_m2} >60 [place] Glucose [Mass/Vol] 90 mg/dL 70 - 100 mg/dL [place] Interpretation and review of laboratory results Abnormal [place] Potassium [Moles/Vol] 3.8 mmol/L 3.5 - 5.1 mmol/L [place] Protein [Mass/Vol] 5.1 g/dL Low 6.3 - 8.2 g/dL [place] Sodium [Moles/Vol] 137 mmol/L 135 - 145 mmol/L [place] Urea nitrogen [Mass/Vol] 12 mg/dL 7 - 20 mg/dL [place] Test Performed by [facility], [address], [place], [place] [address] [place] Hemoglobin and Hematocrit, B loodon 01-10-2019 Hematocrit (Bld) [Volume fraction] 26.5 % Low 35 - 47 % [place] Hemoglobin (Bld) [Mass/Vol] 8.5 g/dL Low 11.7 - 16 g/dL [place] Interpretation and review of laboratory results Abnormal [place] Test Performed by [facility], [address], [place], [place] [address] [place] Otheron 01-10-2019 Blood Culture, Routine No growth at 5 days. [place] Test Performed by [facility], [address] [place] [id number] Specimen Source Comment:Blood [place], [place] CBC auto differentialon 12-19 Absolute Baso # 0.1 10*3/uL 0 - 0.2 10*3/uL [place] Absolute Neut # 9.7 10*3/uL High 1.8 - 7 10*3/uL [place] Basophils/100 WBC (Bld) 0.7 % 0 - 2 % [place] Eosinophils (Bld) [#/Vol] 0.3 10*3/uL 0 - 0.5 10*3/uL [place] Eosinophils/100 WBC (Bld) 2.1 % 1 - 6 % [place] Erythrocyte distribution width (RBC) [Ratio] 13.3 % 11.5 - 14.5 % [place] Granulocytes/100 WBC (Bld) 78.2 % 40 - 80 % [place] Hematocrit (Bld) [Volume fraction] 24.6 % Low 35 - 47 % [place] Hemoglobin (Bld) [Mass/Vol] 8.1 g/dL Low 11.7 - 16 g/dL [place] Interpretation and review of laboratory results Abnormal [place] Lymphocytes (Bld) [#/Vol] 1.8 10*3/uL 1 - 4.3 10*3/uL [place] Lymphocytes/100 WBC (Bld) 14.7 % Low 20 - 40 % [place] MCH (RBC) [Entitic mass] 28.2 pg 26 - 34 pg [place] MCHC (RBC) [Mass/Vol] 32.8 % 32 - 36 % [place] MCV (RBC) [Entitic vol] 86.2 fL 79 - 98 fL [place] Monocytes (Bld) [#/Vol] 0.5 10*3/uL 0 - 0.8 10*3/uL [place] Monocytes/100 WBC (Bld) 4.3 % 2 - 10 % [place] Platelet mean volume (Bld) [Entitic vol] 6.6 fL Low 7.4 - 10.4 fL [place] Platelets (Bld) [#/Vol] 452 10*3/uL High 140 - 440 10*3/uL [place] RBC (Bld) [#/Vol] 2.86 10*6/uL Low 3.8 - 5.2 10*6/uL [place] WBC (Bld) [#/Vol] 12.5 10*3/uL High 3.6 - 10.7 10*3/uL [place] Test Performed by [facility], [address], [place], [place] [address] [place] Comprehensive Metabolic Pane corey 01-09-2019 Albumin [Mass/Vol] 2.5 g/dL Low 3.5 - 5 g/dL [place] ALP [Catalytic activity/Vol] 116 U/L 38 - 126 U/L [place] ALT [Catalytic activity/Vol] 26 U/L 13 - 69 U/L [place] Anion gap [Moles/Vol] 3 mmol/L [place], [place] AST [Catalytic activity/Vol] 29 U/L 15 - 46 U/L [place] Bilirubin Ql (U) 0.3 mg/dL 0.2 - 1.3 mg/dL [place] Calcium [Mass/Vol] 8.0 mg/dL Low 8.4 - 10. 4 mg/dL [place] Chloride [Moles/Vol] 104 mmol/L 98 - 10 7 mmol/L [place] CO2 [Moles/Vol] 28 mmol/L 22 - 30 mmol/L [place] Creatinine [Mass/Vol] 1.29 mg/dL High 0.52 - 1.25 mg/dL [place] EGFR IF NonAfrican [place] 44.3 mL/min >60 [place] Comment on above: Source- MDRD equatio n with creatinine calibration to IDMS(NKDEP) eGFR not recommended for drug dose adjustment GFR/1.73 sq M predicted among blacks MDRD (S/P/Bld) [Vol rate/Area] 53.7 mL/min/{1.73_m2} >60 [place] Glucose [Mass/Vol] 93 mg/dL 70 - 100 mg/dL [place] Interpretation and review of laboratory results Abnormal [place] Potassium [Moles/Vol] 3.8 mmol/L 3.5 - 5.1 mmol/L [place] Protein [Mass/Vol] 5.3 g/dL Low 6.3 - 8.2 g/dL [place] Sodium [Moles/Vol] 135 mmol/L 135 - 145 mmol/L [place] Urea nitrogen [Mass/Vol] 17 mg/dL 7 - 20 mg/dL [place] Test Performed by [facility], [address], [place], [place] [address] [place] CBC auto differentialon 11- Absolute Baso # 0.1 10*3/uL 0 - 0.2 10*3/uL [place] Absolute Neut # 14.1 10*3/uL High 1.8 - 7 10*3/uL [place] Basophils/100 WBC (Bld) 0.6 % 0 - 2 % [place] Eosinophils (Bld) [#/Vol] 0.1 10*3/uL 0 - 0.5 10*3/uL [place] Eosinophils/100 WBC (Bld) 0.3 % Low 1 - 6 % [place] Erythrocyte distribution width (RBC) [Ratio] 13.5 % 11.5 - 14.5 % [place] Granulocytes/100 WBC (Bld) 82.9 % High 40 - 80 % [place] Hematocrit (Bld) [Volume fraction] 24.7 % Low 35 - 47 % [place] Hemoglobin (Bld) [Mass/Vol] 8.3 g/dL Low 11.7 - 16 g/dL [place] Interpretation and review of laboratory results Abnormal [place] Lymphocytes (Bld) [#/Vol] 2.0 10*3/uL 1 - 4.3 10*3/uL [place] Lymphocytes/100 WBC (Bld) 11.6 % Low 20 - 40 % [place] MCH (RBC) [Entitic mass] 28.3 pg 26 - 34 pg [place] MCHC (RBC) [Mass/Vol] 33.7 % 32 - 36 % [place], [place] MCV (RBC) [Entitic vol] 83.8 fL 79 - 98 fL [place], [place] Monocytes (Bld) [#/Vol] 0.8 10*3/uL 0 - 0.8 10*3/uL [place], [place] Monocytes/100 WBC (Bld) 4.6 % 2 - 10 % [place] Platelet mean volume (Bld) [Entitic vol] 6.7 fL Low 7.4 - 10.4 fL [place] Platelets (Bld) [#/Vol] 525 10*3/uL High 140 - 440 10*3/uL [place] RBC (Bld) [#/Vol] 2.95 10*6/uL Low 3.8 - 5.2 10*6/uL [place] WBC (Bld) [#/Vol] 17.1 10*3/uL High 3.6 - 10.7 10*3/uL [place] Test Performed by [facility], [address], [place], [place] [address] [place], [place] Comprehensive Metabolic Pane corey 01-08-2019 Albumin [Mass/Vol] 2.6 g/dL Low 3.5 - 5 g/dL [place] ALP [Catalytic activity/Vol] 153 U/L High 38 - 126 U/L [place] ALT [Catalytic activity/Vol] 26 U/L 13 - 69 U/L [place] Anion gap [Moles/Vol] 6 mmol/L [place], [place] AST [Catalytic activity/Vol] 23 U/L 15 - 46 U/L [place] Bilirubin Ql (U) 0.2 mg/dL 0.2 - 1.3 mg/dL [place] Calcium [Mass/Vol] 8.2 mg/dL Low 8.4 - 10. 4 mg/dL [place] Chloride [Moles/Vol] 103 mmol/L 98 - 10 7 mmol/L [place] CO2 [Moles/Vol] 27 mmol/L 22 - 30 mmol/L [place] Creatinine [Mass/Vol] 0.97 mg/dL 0.52 - 1.25 mg/dL [place] EGFR IF NonAfrican [place]ian >60.0 >60 mL/min [place] Comment on above: Source- MDRD equatio n with creatinine calibration to IDMS(NKDEP) eGFR not recommended for drug dose adjustment GFR/1.73 sq M predicted among blacks MDRD (S/P/Bld) [Vol rate/Area] mL/min/{1.73_m2} >60 mL/min [place] Glucose [Mass/Vol] 98 mg/dL 70 - 100 mg/dL [place] Interpretation and review of laboratory results Abnormal [place] Potassium [Moles/Vol] 4.5 mmol/L 3.5 - 5.1 mmol/L [place] Protein [Mass/Vol] 5.3 g/dL Low 6.3 - 8.2 g/dL [place] Sodium [Moles/Vol] 136 mmol/L 135 - 145 mmol/L [place] Urea nitrogen [Mass/Vol] 16 mg/dL 7 - 20 mg/dL [place] Test Performed by [facility], [address], [place], [place] [address] [place] Culture, Aerobic Bacteria wi th Gram Staion 01-08-2019 Aerobic Culture Staphylococcus aureus Abnormal [place], [place] INR Coag (Bld) [Relative time] Moderate Positive for PBP2a (MRSA). Methicillin-resistant Staphylococcus aureus(MRSA) [place] INR Coag (Bld) [Relative time] Few polymorphonuclear cells/lpf. Few gram positive cocci. [place] Interpretation and review of laboratory results Abnormal [place] Test Performed by [facility], [address] [place] [address] [place] Tissue Cultureon 01-08-2019 INR Coag (Bld) [Relative time] Many Methicillin-resistant Staphylococcus aureus(MRSA) For identification and/or sensitivity, refer to culture collected on: 01/05/2019 at 1630 ([id number]). [place] INR Coag (Bld) [Relative time] Many polymorphonuclear cells/lpf. Moderate gram positive cocci. [place] Interpretation and review of laboratory results Abnormal [place] Tissue Cult/Smear, Aer Staphylococcus aureus Abnormal [place] Test Performed by [facility], [address] [place] [address] [place], [place] C-Reactive Proteinon 019 CRP [Mass/Vol] 88.2 mg/L High 0 - 6 mg/L [place], [place] Comment on above: . Interpretation and review of laboratory results Abnormal [place] Test Performed by [facility], [address], [place], [place] [address] [place] CBC auto differentialon 12-19 Absolute Baso # 0.1 10*3/uL 0 - 0.2 10*3/uL [place] Absolute Neut # 9.2 10*3/uL High 1.8 - 7 10*3/uL [place], [place] Basophils/100 WBC (Bld) 1.2 % 0 - 2 % [place] Eosinophils (Bld) [#/Vol] 0.2 10*3/uL 0 - 0.5 10*3/uL [place], [place] Eosinophils/100 WBC (Bld) 2.0 % 1 - 6 % [place] Erythrocyte distribution width (RBC) [Ratio] 13.2 % 11.5 - 14.5 % [place] Granulocytes/100 WBC (Bld) 74.5 % 40 - 80 % [place] Hematocrit (Bld) [Volume fraction] 23.4 % Low 35 - 47 % [place] Hemoglobin (Bld) [Mass/Vol] 8.0 g/dL Low 11.7 - 16 g/dL [place] Interpretation and review of laboratory results Abnormal [place] Lymphocytes (Bld) [#/Vol] 2.1 10*3/uL 1 - 4.3 10*3/uL [place] Lymphocytes/100 WBC (Bld) 17.0 % Low 20 - 40 % [place] MCH (RBC) [Entitic mass] 28.5 pg 26 - 34 pg [place] MCHC (RBC) [Mass/Vol] 34.1 % 32 - 36 % [place], [place] MCV (RBC) [Entitic vol] 83.6 fL 79 - 98 fL [place], [place] Monocytes (Bld) [#/Vol] 0.7 10*3/uL 0 - 0.8 10*3/uL [place], [place] Monocytes/100 WBC (Bld) 5.3 % 2 - 10 % [place] Platelet mean volume (Bld) [Entitic vol] 7.1 fL Low 7.4 - 10.4 fL [place] Platelets (Bld) [#/Vol] 360 10*3/uL 140 - 440 10*3/uL [place] RBC (Bld) [#/Vol] 2.80 10*6/uL Low 3.8 - 5.2 10*6/uL [place] WBC (Bld) [#/Vol] 12.3 10*3/uL High 3.6 - 10.7 10*3/uL [place] Test Performed by [facility], [address], [place], [place] [address] [place], [place] Comprehensive Metabolic Pane corey 01-07-2019 Albumin [Mass/Vol] 2.4 g/dL Low 3.5 - 5 g/dL [place] ALP [Catalytic activity/Vol] 141 U/L High 38 - 126 U/L [place] ALT [Catalytic activity/Vol] 29 U/L 13 - 69 U/L [place] Anion gap [Moles/Vol] 2 mmol/L [place], [place] AST [Catalytic activity/Vol] 15 U/L 15 - 46 U/L [place] Bilirubin Ql (U) 0.2 mg/dL 0.2 - 1.3 mg/dL [place] Calcium [Mass/Vol] 8.1 mg/dL Low 8.4 - 10. 4 mg/dL [place], [place] Chloride [Moles/Vol] 102 mmol/L 98 - 10 7 mmol/L [place] CO2 [Moles/Vol] 29 mmol/L 22 - 30 mmol/L [place] Creatinine [Mass/Vol] 0.65 mg/dL 0.52 - 1.25 mg/dL [place], [place] EGFR IF NonAfrican [place]ian >60.0 >60 mL/min [place] Comment on above: Source- MDRD equatio n with creatinine calibration to IDMS(NKDEP) eGFR not recommended for drug dose adjustment GFR/1.73 sq M predicted among blacks MDRD (S/P/Bld) [Vol rate/Area] mL/min/{1.73_m2} >60 mL/min [place] Glucose [Mass/Vol] 77 mg/dL 70 - 100 mg/dL [place] Interpretation and review of laboratory results Abnormal [place] Potassium [Moles/Vol] 4.3 mmol/L 3.5 - 5.1 mmol/L [place] Protein [Mass/Vol] 4.9 g/dL Low 6.3 - 8.2 g/dL [place], [place] Sodium [Moles/Vol] 134 mmol/L Low 135 - 145 mmol/L [place], [place] Urea nitrogen [Mass/Vol] 17 mg/dL 7 - 20 mg/dL [place] Test Performed by [facility], [address], [place], [place] [address] [place] Hepatitis Panel, Acuteon HAV IgM IA Qn (S) NOT DETECTED Not-Detect ed NA [place] Hep B Core Ab, IgM NOT DETECTED Not-Detec rosanna NA [place] Hepatitis B Surface Ag NOT DETECTED Not-Detected NA [place] Hepatitis C Ab DETECTED Abnormal Not-Detected NA [place] Comment on above: Patients with DETECT ED Hepatitis C Ab results should have a new specimen submitted for supplemental testing with a Hepatitis C Quantitative RNA assay (viral load), if clinically indicated. Interpretation and review of laboratory results Abnormal [place] Test Performed by [facility], [address] [place] [address] [place], [place] Manual Differentialon 2018 Absolute Baso # 0.1 10*3/uL 0 - 0.2 10*3/uL [place] Absolute Eos # 0.2 10*3/uL 0 - 0.5 10*3/uL [place] Absolute Lymph # 0.9 10*3/uL Low 1.1 - 4.5 10*3/uL [place] Absolute Real # 0.9 10*3/uL 0.2 - 1.1 10*3/uL [place] Absolute Neut # 9.7 10*3/uL High 2.2 - 8.2 10*3/uL [place] Bands 3 % 0 - 3 % [facility] [place], [place] Basophils 1 % 0 - 2 % [place] Clumped Platelets see below [place] Comment on above: Platelet clumping no rosanna; this may be corrected by using Na Citrate. Eosinophils 2 % 1 - 6 % [place] Interpretation and review of laboratory results Abnormal [place] Lymphocytes 7 % Low 20 - 40 % [place] Metamyelocytes 4 % Abnormal <1 [place] Monocytes 7 % 2 - 10 % [place] RBC morphology finding Nom (Bld) Normal [place] Seg Neutrophils 76 % 40 - 80 % [place] TOTAL CELLS COUNTED 100 [place] Test Performed by [facility], [address], [place], [place] [address] [place] Procalcitoninon 01-07-2019 Interpretation and review of laboratory results Abnormal [place] Procalcitonin 0.1 ng/mL Abnormal <0.10 [place] Sodium [Moles/Vol] See Below [place], [place] Comment on above: PCT <0.50 = Low risk of severe sepsis and/or septic shock. PCT >2.00 = High risk of severe sepsis and/or septic shock. Test Performed by [facility], [address] [place] [address] [place] Vancomycin, Troughon 019 Interpretation and review of laboratory results Abnormal [place] Vancomycin Tr 9.2 ug/mL Low 15 - 20 ug/mL [place] Comment on above: . Test Performed by [facility], [address], [place], [place] [address] [place] Basic Metabolic Panel w/ Ref ruslan to MGon 01-06-2019 Anion gap [Moles/Vol] 4 mmol/L [place] Calcium [Mass/Vol] 8.4 mg/dL 8.4 - 10. 4 mg/dL [place] Chloride [Moles/Vol] 102 mmol/L 98 - 10 7 mmol/L [place] CO2 [Moles/Vol] 28 mmol/L 22 - 30 mmol/L [place] Creatinine [Mass/Vol] 0.55 mg/dL 0.52 - 1.25 mg/dL [place] EGFR IF NonAfrican [place]ian >60.0 >60 mL/min [place] Comment on above: Source- MDRD equatio n with creatinine calibration to IDMS(NKDEP) eGFR not recommended for drug dose adjustment GFR/1.73 sq M predicted among blacks MDRD (S/P/Bld) [Vol rate/Area] mL/min/{1.73_m2} >60 mL/min [place] Glucose [Mass/Vol] 113 mg/dL High 70 - 100 mg/dL [place] Interpretation and review of laboratory results Abnormal [place] Potassium [Moles/Vol] 4.8 mmol/L 3.5 - 5.1 mmol/L [place] Sodium [Moles/Vol] 134 mmol/L Low 135 - 145 mmol/L [place] Urea nitrogen [Mass/Vol] 14 mg/dL 7 - 20 mg/dL [place] Test Performed by [facility], [address], [place], [place] [address] [place] CBC auto differentialon 11-2 Absolute Baso # 0.0 10*3/uL 0 - 0.2 10*3/uL [place] Absolute Neut # 9.0 10*3/uL High 1.8 - 7 10*3/uL [place] Basophils/100 WBC (Bld) 0.3 % 0 - 2 % [place] Eosinophils (Bld) [#/Vol] 0.0 10*3/uL 0 - 0.5 10*3/uL [place] Eosinophils/100 WBC (Bld) 0.1 % Low 1 - 6 % [place] Erythrocyte distribution width (RBC) [Ratio] 12.9 % 11.5 - 14.5 % [place] Granulocytes/100 WBC (Bld) 85.6 % High 40 - 80 % [place] Hematocrit (Bld) [Volume fraction] 34.7 % Low 35 - 47 % [place] Hemoglobin (Bld) [Mass/Vol] 11.8 g/dL 11.7 - 16 g/dL [place] Interpretation and review of laboratory results Abnormal [place] Lymphocytes (Bld) [#/Vol] 0.8 10*3/uL Low 1 - 4.3 10*3/uL [place] Lymphocytes/100 WBC (Bld) 8.0 % Low 20 - 40 % [place] MCH (RBC) [Entitic mass] 28.6 pg 26 - 34 pg [place] MCHC (RBC) [Mass/Vol] 33.9 % 32 - 36 % [place] MCV (RBC) [Entitic vol] 84.3 fL 79 - 98 fL [place] Monocytes (Bld) [#/Vol] 0.6 10*3/uL 0 - 0.8 10*3/uL [place] Monocytes/100 WBC (Bld) 6.0 % 2 - 10 % [place] Platelet mean volume (Bld) [Entitic vol] 7.3 fL Low 7.4 - 10.4 fL [place] Platelets (Bld) [#/Vol] 254 10*3/uL 140 - 440 10*3/uL [place] RBC (Bld) [#/Vol] 4.12 10*6/uL 3.8 - 5.2 10*6/uL [place] WBC (Bld) [#/Vol] 10.5 10*3/uL 3.6 - 10.7 10*3/uL [place] Test Performed by [facility], [address], [place], [place] [address] [place] Add On Lab Teston 01-05-2019 Sodium [Moles/Vol] Accepted [place] Comment on above: Specimen available & acceptable for analysis. Test Performed by [facility], [address], [place], [place] [address] [place] C-Reactive Proteinon 019 CRP [Mass/Vol] 255.1 mg/L High 0 - 6 mg/L [place] Comment on above: . Interpretation and review of laboratory results Abnormal [place] Test Performed by [facility], [address], [place], [place] [address] [place] UPPER EXTREMITY RIGHT W C Nicki 01-05-2019 [place], [facility] Incoming Radiology Results From [facility] - 01/05/2019 3:14 PM EST Patient Name: DEIDRA DE LA CRUZ ---CT--- Exam Date/Time 01/05/2019 13:32:[address] Up Ext w/ Contrast Right Ordering Physician MALI COOPER DANIEL M Accession Number [id number] CPT4 Codes 45124 (), Q9967 (CT ISOVUE [id number] ) Reason For Exam Extensive cellulitis and [...] HARLAN Transcribed Date and Time: 01/05/2019 3:14 [place] Patient Name: DEIDRA GOLDSTEIN ---CT--- Exam Date/Time 01/05/2019 13:32:[address] Up Ext w/ Contrast Right Ordering Physician MALI COOPER DANIEL M Accession Number [id number] CPT4 Codes 95071 (), Q9967 (CT ISOVUE [id number] ) Reason For Exam Extensive cellulitis and [...] HARLAN Transcribed Date and Time: 01/05/2019 3:14 [place] Comprehensive Metabolic Pane corey 01-05-2019 Albumin [Mass/Vol] 3.2 g/dL Low 3.5 - 5 g/dL [place] ALP [Catalytic activity/Vol] 290 U/L High 38 - 126 U/L [place] ALT [Catalytic activity/Vol] 33 U/L 13 - 69 U/L [place] Anion gap [Moles/Vol] 8 mmol/L [place] AST [Catalytic activity/Vol] 23 U/L 15 - 46 U/L [place] Bilirubin Ql (U) 0.7 mg/dL 0.2 - 1.3 mg/dL [place] Calcium [Mass/Vol] 8.7 mg/dL 8.4 - 10. 4 mg/dL [place] Chloride [Moles/Vol] 96 mmol/L Low 98 - 10 7 mmol/L [place] CO2 [Moles/Vol] 28 mmol/L 22 - 30 mmol/L [place] Creatinine [Mass/Vol] 0.57 mg/dL 0.52 - 1.25 mg/dL [place] EGFR IF NonAfrican [place]ian >60.0 >60 mL/min [place] Comment on above: Source- MDRD equatio n with creatinine calibration to IDMS(NKDEP) eGFR not recommended for drug dose adjustment GFR/1.73 sq M predicted among blacks MDRD (S/P/Bld) [Vol rate/Area] mL/min/{1.73_m2} >60 mL/min [place] Glucose [Mass/Vol] 105 mg/dL High 70 - 100 mg/dL [place] Interpretation and review of laboratory results Abnormal [place] Potassium [Moles/Vol] 4.0 mmol/L 3.5 - 5.1 mmol/L [place] Protein [Mass/Vol] 6.4 g/dL 6.3 - 8.2 g/dL [place] Sodium [Moles/Vol] 132 mmol/L Low 135 - 145 mmol/L [place] Urea nitrogen [Mass/Vol] 10 mg/dL 7 - 20 mg/dL [place] Test Performed by [facility], [address], [place], [place] [address] [place] [address] HCG Qualitative, Serumon hCG Qual Negative m[IU]/mL [place] Comment on above: REF RANGE: Negative .... < 3 Questionable Rpt 48-72 Hr Positive ..... > 10 Test Performed by [facility], [address] [place], [place] [address] [place] [address] Hemogram (CBC) w/Auto Diffon 01-05-2019 Absolute Baso # 0.1 10*3/uL 0 - 0.2 10*3/uL [place] Absolute Neut # 12.5 10*3/uL High 1.8 - 7 10*3/uL [place] Basophils/100 WBC (Bld) 0.4 % 0 - 2 % [place] Eosinophils (Bld) [#/Vol] 0.1 10*3/uL 0 - 0.5 10*3/uL [place] Eosinophils/100 WBC (Bld) 0.6 % Low 1 - 6 % [place] Erythrocyte distribution width (RBC) [Ratio] 13.2 % 11.5 - 14.5 % [place] Granulocytes/100 WBC (Bld) 84.1 % High 40 - 80 % [place] Hematocrit (Bld) [Volume fraction] 34.7 % Low 35 - 47 % [place] Hemoglobin (Bld) [Mass/Vol] 11.8 g/dL 11.7 - 16 g/dL [place] Interpretation and review of laboratory results Abnormal [place] Lymphocytes (Bld) [#/Vol] 1.3 10*3/uL 1 - 4.3 10*3/uL [place] Lymphocytes/100 WBC (Bld) 8.7 % Low 20 - 40 % [place] MCH (RBC) [Entitic mass] 28.2 pg 26 - 34 pg [place] MCHC (RBC) [Mass/Vol] 34.0 % 32 - 36 % [place] MCV (RBC) [Entitic vol] 83.1 fL 79 - 98 fL [place] Monocytes (Bld) [#/Vol] 0.9 10*3/uL High 0 - 0.8 10*3/uL [place] Monocytes/100 WBC (Bld) 6.2 % 2 - 10 % [place] Platelet mean volume (Bld) [Entitic vol] 7.3 fL Low 7.4 - 10.4 fL [place] Platelets (Bld) [#/Vol] 325 10*3/uL 140 - 440 10*3/uL [place] RBC (Bld) [#/Vol] 4.17 10*6/uL 3.8 - 5.2 10*6/uL [place] WBC (Bld) [#/Vol] 14.8 10*3/uL High 3.6 - 10.7 10*3/uL [place] Test Performed by [facility], [address], [place], [place] [address] [place] [address] Lactic Acid, Plasmaon 2018 Lactate [Moles/Vol] 1.2 mmol/L 0.7 - 2 mmol/L [place] Test Performed by [facility], [address], [place], [place] [address] [facility] [place] Vital Signs Date Time Vital Sign Value Performing Clinician Facility 05-12-2024 15:20-0400 Body temperature 97.9 [degF] Dinah Noe MD Work Phone: [facility] 05-12-2024 15:20-0400 Diastolic blood pressure 72 mm[Hg] Dinah Noe MD Work Phone: [facility] 05-12-2024 15:20-0400 Heart rate 62 /min iDnah Noe MD Work Phone: [facility] 05-12-2024 15:20-0400 Respiratory rate 17 /min Dinah Noe MD Work Phone: [facility] 05-12-2024 15:20-0400 SaO2% (BldA) [Mass fraction] 96 % Dinah Noe MD Work Phone: [facility] 05-12-2024 15:20-0400 Systolic blood pressure 120 mm[Hg] Dinah Noe MD Work Phone: [facility] 05-05-2024 12:53-0400 Body height 167.6 cm Dinah Noe MD Work Phone: [facility] 05-05-2024 12:53-0400 Body mass index (BMI) [Ratio] 36.79 kg/m2 Dinah Noe MD Work Phone: [facility] 05-05-2024 12:53-0400 Body weight 103.4 kg Dinah Noe MD Work Phone: [facility] 04-25-2024 18:00-0400 Body temperature 98.1 [degF] Dr. Francisco Elmore MD Work Phone: [facility] 04-25-2024 18:00-0400 Diastolic blood pressure 85 mm[Hg] Dr. Francisco Elmore MD Work Phone: [facility] 04-25-2024 18:00-0400 Heart rate 69 /min Dr. Francisco Elmore MD Work Phone: [facility] 04-25-2024 18:00-0400 Respiratory rate 17 /min Dr. Francisco Elmore MD Work Phone: [facility] 04-25-2024 18:00-0400 SaO2% (BldA) [Mass fraction] 98 % Dr. Francisco Elmore MD Work Phone: [facility] 04-25-2024 18:00-0400 Systolic blood pressure 152 mm[Hg] Dr. Francisco Elmore MD Work Phone: [facility] 04-25-2024 15:03-0400 Body height 167.[address] Francisco Elmore MD Work Phone: [facility] 04-25-2024 15:03-0400 Body mass index (BMI) [Ratio] 34.8 kg/m2 Dr. Francisco Elmore MD Work Phone: [facility] 04-25-2024 15:03-0400 Body weight 97.[address] Francisco Elmore MD Work Phone: [facility] 04-01-2024 11:27-0500 Body temperature 97.3 [degF] Filippo Mark MD Work Phone: [facility] 04-01-2024 11:27-0500 Diastolic blood pressure 83 mm[Hg] Filippo Mark MD Work Phone: [facility] 04-01-2024 11:27-0500 Heart rate 82 /min Filippo Mark MD Work Phone: [facility] 04-01-2024 11:27-0500 Respiratory rate 18 /min Filippo Mark MD Work Phone: [facility] 04-01-2024 11:27-0500 SaO2% (BldA) [Mass fraction] 97 % Filippo Mark MD Work Phone: [phone] 04-01-2024 11:27-0500 Systolic blood pressure 134 mm[Hg] Filippo Mark MD Work Phone: [facility] 03-25-2024 23:59-0500 Body height 165.1 cm Filippo Mark MD Work Phone: [facility] 03-25-2024 23:59-0500 Body mass index (BMI) [Ratio] 30.79 kg/m2 Filippo Mrak MD Work Phone: [facility] 03-25-2024 23:59-0500 Body weight 83.92 kg Filippo Mark MD Work Phone: [facility] 03-25-2024 20:59-0500 Body temperature 37 Filippo Mark MD Work Phone: [facility] Comment on above: NOTE: Patient Results are Not Corrected for Temperature 03-25-2024 20:59-0500 SaO2% (BldA) [Mass fraction] 99 % Filippo Mark MD Work Phone: [facility] 03-25-2024 20:57-0500 Body temperature 37.0 degrees Celsius [facility] Comment on above: Result Comment: NOTE: Patient Results ar e Not Corrected for Temperature Performed By: #### [id number] ####JANETH Galo ([id number])[facility] ([facility])[address] [place] [address] 03-25-2024 20:57-0500 SaO2% (BldA) [Mass fraction] 99 % [facility] Comment on above: Performed By: #### [id number] ####JANETH Galo ([id number])[facility] ([facility])[address] [place] [address] 03-25-2024 16:36-0500 Body temperature 37 Filippo Mark MD Work Phone: [facility] 03-25-2024 16:36-0500 SaO2% (BldA) [Mass fraction] 98 % Filippo Mrak MD Work Phone: [facility] 03-25-2024 15:55-0500 Body temperature 37.0 degrees Celsius [facility] Comment on above: Performed By: #### [id number] ####JANETH Galo ([id number])[facility] ([facility])[address] [place] [address] 03-25-2024 15:55-0500 SaO2% (BldA) [Mass fraction] 98 % [facility] Comment on above: Performed By: #### [id number] ####JANETH Galo ([id number])[facility] ([facility])[address] [place] [address] 03-25-2024 14:28-0500 Body temperature 37 Filippo Mark MD Work Phone: [facility] 03-25-2024 14:28-0500 SaO2% (BldA) [Mass fraction] 98 % Filippo Mark MD Work Phone: [facility] 03-25-2024 14:08-0500 Body temperature 37.0 degrees Celsius [facility] Comment on above: Performed By: #### [id number] ####JANETH Galo ([id number])[facility] ([facility])[address] [place] [address] 03-25-2024 14:08-0500 SaO2% (BldA) [Mass fraction] 98 % [facility] Comment on above: Performed By: #### [id number] ####JANETH Galo ([id number])[facility] ([facility])[address] [place] [address] 03-25-2024 12:23-0500 Body temperature 37 Filippo Mark MD Work Phone: [facility] 03-25-2024 12:23-0500 SaO2% (BldA) [Mass fraction] 99 % Filippo Mark MD Work Phone: [facility] 03-25-2024 11:32-0500 Body temperature 37 Filippo Mark MD Work Phone: [facility] 03-25-2024 11:32-0500 SaO2% (BldA) [Mass fraction] 99 % Filippo Mark MD Work Phone: [facility] 03-25-2024 10:31-0500 Body temperature 37.0 degrees Celsius [facility] Comment on above: Performed By: #### [id number] ####JANETH Galo ([id number])[facility] ([facility])[address] [place] [address] 03-25-2024 10:31-0500 SaO2% (BldA) [Mass fraction] 99 % [facility] Comment on above: Performed By: #### [id number] ####JANETH Galo ([id number])[facility] ([facility])[address] [place] [address] 03-25-2024 09:31-0500 Body temperature 37 Filippo Mark MD Work Phone: [facility] 03-25-2024 09:31-0500 SaO2% (BldA) [Mass fraction] 99 % Filippo Mark MD Work Phone: [facility] 03-25-2024 09:15-0500 Body temperature 37 Filippo Mark MD Work Phone: [facility] 03-25-2024 09:15-0500 SaO2% (BldA) [Mass fraction] 99 % Filippo Mark MD Work Phone: [facility] Comment on above: Performed By: #### [id number] ####JANETH Galo ([id number])[facility] ([facility])[address] [place], [place] [id number] 03-25-2024 09:13-0500 Body temperature 37.0 degrees Celsius [facility] Comment on above: Performed By: #### [id number] ####JANETH Galo ([id number])[facility] ([facility])[address] [place] [address] 03-25-2024 09:13-0500 SaO2% (BldA) [Mass fraction] 99 % [facility] Comment on above: Performed By: #### [id number] ####JANETH Galo ([id number])[facility] ([facility])[address] [place] [address] 03-25-2024 08:50-0500 Body temperature 37.0 degrees Celsius [facility] Comment on above: Performed By: #### [id number] ####JANETH Galo ([id number])[facility] ([facility])[address] [place], [place] [id number] 03-25-2024 08:50-0500 SaO2% (BldA) [Mass fraction] 99 % [facility] Comment on above: Performed By: #### [id number] ####JANETH Galo ([id number])[facility] ([facility])[address] [place], [place] [id number] 03-18-2024 07:40-0500 Body temperature 97.3 [degF] Cruz Goodman MD Work Phone: [facility] 03-18-2024 07:40-0500 Diastolic blood pressure 82 mm[Hg] Cruz Goodman MD Work Phone: [facility] 03-18-2024 07:40-0500 Heart rate 77 /min Cruz Goodman MD Work Phone: [facility] 03-18-2024 07:40-0500 Respiratory rate 16 /min Cruz Goodman MD Work Phone: [facility] 03-18-2024 07:40-0500 SaO2% (BldA) [Mass fraction] 98 % Cruz Goodman MD Work Phone: [facility] 03-18-2024 07:40-0500 Systolic blood pressure 166 mm[Hg] Cruz Goodman MD Work Phone: [facility] 03-13-2024 07:53-0500 Body mass index (BMI) [Ratio] 34.86 kg/m2 Cruz Goodman MD Work Phone: [facility] 03-13-2024 07:53-0500 Body weight 97.98 kg Cruz Goodman MD Work Phone: [facility] 01-16-2024 15:31-0500 Body temperature 97.5 [degF] Cruz Goodman MD Work Phone: [facility] 01-16-2024 15:31-0500 Diastolic blood pressure 66 mm[Hg] Cruz Goodman MD Work Phone: [facility] 01-16-2024 15:31-0500 Heart rate 79 /min Cruz Goodman MD Work Phone: [facility] 01-16-2024 15:31-0500 Respiratory rate 18 /min Cruz Goodman MD Work Phone: [facility] 01-16-2024 15:31-0500 SaO2% (BldA) [Mass fraction] 95 % Cruz Goodman MD Work Phone: [facility] 01-16-2024 15:31-0500 Systolic blood pressure 101 mm[Hg] Cruz Goodman MD Work Phone: [facility] 01-09-2024 06:40-0500 Body height 167.6 cm Cruz Goodman MD Work Phone: [facility] 01-09-2024 06:40-0500 Body mass index (BMI) [Ratio] 29.86 kg/m2 Cruz Goodman MD Work Phone: [facility] 01-09-2024 06:40-0500 Body weight 83.92 kg Cruz Goodman MD Work Phone: [facility] 11-18-2023 10:34-0400 Body height 165.1 cm Bijan Elmore MD Work Phone: [facility] 11-18-2023 10:34-0400 Diastolic blood pressure 83 mm[Hg] Bijan Elmore MD Work Phone: [facility] 11-18-2023 10:34-0400 Heart rate 82 /min Bijan Elmore MD Work Phone: [facility] 11-18-2023 10:34-0400 SaO2% (BldA) [Mass fraction] 95 % Bijan Elmore MD Work Phone: [facility] 11-18-2023 10:34-0400 Systolic blood pressure 128 mm[Hg] Bijan Elmore MD Work Phone: [facility] 11-28-2022 13:13-0400 Body height 167.[address] Francisco Elmore Work Phone: [facility] 11-28-2022 13:13-0400 Body mass index (BMI) [Ratio] 32.1 kg/m2 Dr. Francisco Elmore Work Phone: [facility] 11-28-2022 13:13-0400 Body temperature 98.2 [degF] Dr. Francisco Elmore Work Phone: [facility] 11-28-2022 13:13-0400 Body weight 90.[address] Francisco Elmore Work Phone: [facility] 11-28-2022 13:13-0400 Diastolic blood pressure 89 mm[Hg] Dr. Francisco Elmore Work Phone: [facility] 11-28-2022 13:13-0400 Heart rate 83 /min Dr. Francisco Elmore Work Phone: [facility] 11-28-2022 13:13-0400 Respiratory rate 16 /min Dr. Francisco Elmore Work Phone: [facility] 11-28-2022 13:13-0400 Systolic blood pressure 151 mm[Hg] Dr. Francisco Elmore Work Phone: [facility] 09-26-2022 14:32-0400 Body height 165.1 cm Bijan Elmore MD Work Phone: [facility] 09-26-2022 14:32-0400 Diastolic blood pressure 83 mm[Hg] Bijan Elmore MD Work Phone: [facility] 09-26-2022 14:32-0400 Heart rate 69 /min Bijan Elmore MD Work Phone: [facility] 09-26-2022 14:32-0400 SaO2% (BldA) [Mass fraction] 96 % Bijan Elmore MD Work Phone: [facility] 09-26-2022 14:32-0400 Systolic blood pressure 149 mm[Hg] Bijan Elmore MD Work Phone: [facility] 04-17-2022 14:36-0500 Body height 165.1 cm Cass Guzman MD Work Phone: [facility] 04-17-2022 14:36-0500 Body mass index (BMI) [Ratio] 29.95 kg/m2 Cass Guzman MD Work Phone: [facility] 04-17-2022 14:36-0500 Body weight 81.65 kg Cass Guzman MD Work Phone: [facility] 04-03-2022 10:16-0500 Body height 165.1 cm Jarvis Almonte MD Work Phone: [facility] 04-03-2022 10:16-0500 Body mass index (BMI) [Ratio] 29.95 kg/m2 Jarvis Almonte MD Work Phone: [employer] 04-03-2022 10:16-0500 Body temperature 97.9 [degF] Jarvis Almonte MD Work Phone: [facility] 04-03-2022 10:16-0500 Body weight 81.65 kg Jarvis Almonte MD Work Phone: [employer] 04-03-2022 10:16-0500 Diastolic blood pressure 100 mm[Hg] Jarvis Almonte MD Work Phone: [employer] 04-03-2022 10:16-0500 Heart rate 72 /min Jarvis Almonte MD Work Phone: [facility] 04-03-2022 10:16-0500 SaO2% (BldA) [Mass fraction] 94 % Jarvis Almonte MD Work Phone: [facility] 04-03-2022 10:16-0500 Systolic blood pressure 130 mm[Hg] Jarvis Almonte MD Work Phone: [facility] 03-15-2022 09:35-0500 Diastolic blood pressure 84 mm[Hg] Pacheco Tl DO Work Phone: [facility] 03-15-2022 09:35-0500 Heart rate 75 /min Pacheco Tl DO Work Phone: [employer] 03-15-2022 09:35-0500 Respiratory rate 20 /min Pacheco Tl DO Work Phone: [employer] 03-15-2022 09:35-0500 Systolic blood pressure 138 mm[Hg] Pacheco Tl DO Work Phone: [employer] 10-10-2021 13:46-0400 Heart rate 88 /min Cass Guzman MD Work Phone: [facility] 10-10-2021 13:46-0400 Respiratory rate 16 /min Cass Guzman MD Work Phone: [facility] 10-10-2021 13:46-0400 SaO2% (BldA) [Mass fraction] 98 % Cass Guzman MD Work Phone: [facility] 09-17-2021 16:43-0400 Body height 165.1 cm Bijan Elmore MD Work Phone: [facility] 09-17-2021 16:43-0400 Body weight 83.92 kg Bijan Elmore MD Work Phone: [facility] 09-17-2021 16:43-0400 Diastolic blood pressure 65 mm[Hg] Bijan Elmore MD Work Phone: [facility] 09-17-2021 16:43-0400 Heart rate 82 /min Bijan Elmore MD Work Phone: [facility] 09-17-2021 16:43-0400 SaO2% (BldA) [Mass fraction] 95 % Bijan Elmore MD Work Phone: [facility] 09-17-2021 16:43-0400 Systolic blood pressure 114 mm[Hg] Bijan Elmore MD Work Phone: [facility] 09-05-2021 08:51-0400 Body height 167.[address] Francisco Elmore Work Phone: [facility] Work Phone: 09-05-2021 08:51-0400 Body mass index (BMI) [Ratio] 30.7 kg/m2 Dr. Francisco Elmore Work Phone: [facility] Work Phone: 09-05-2021 08:51-0400 Body temperature 97.5 [degF] Dr. Francisco Elmore Work Phone: [facility] Work Phone: 09-05-2021 08:51-0400 Body weight 86.[address] Francisco Elmore Work Phone: [facility] Work Phone: 09-05-2021 08:51-0400 Diastolic blood pressure 88 mm[Hg] Dr. Francisco Elmore Work Phone: [facility] Work Phone: 09-05-2021 08:51-0400 Heart rate 87 /min Dr. Francisco Elmore Work Phone: [facility] Work Phone: 09-05-2021 08:51-0400 Respiratory rate 14 /min Dr. Francisco Elmore Work Phone: [facility] Work Phone: 09-05-2021 08:51-0400 SaO2% (BldA) [Mass fraction] 94 % Dr. Francisco Elmore Work Phone: [facility] Work Phone: 09-05-2021 08:51-0400 Systolic blood pressure 139 mm[Hg] Dr. Francisco Elmore Work Phone: [facility] Work Phone: 06-27-2021 13:56-0400 Heart rate 84 /min Justen Morgan MD Work Phone: [facility] 06-27-2021 13:56-0400 SaO2% (BldA) [Mass fraction] 96 % Justen Morgan MD Work Phone: [facility] 06-26-2021 15:09-0400 Diastolic blood pressure 60 mm[Hg] Cheryl Angela RECONCILIATION COORDINATOR.[employer] Work Phone: [facility] 06-26-2021 15:09-0400 Heart rate 82 /min Cheryl Angela RECONCILIATION COORDINATOR.[employer] Work Phone: [facility] 06-26-2021 15:09-0400 Systolic blood pressure 125 mm[Hg] Cheryl Angela RECONCILIATION COORDINATOR.[employer]CH[employer] Work Phone: [facility] 06-12-2021 18:37-0400 Body temperature 97.5 [degF] Romina Bhat RECONCILIATION COORDINATOR.[employer] MECHANIC Work Phone: [facility] 04-26-2022 18:37-0400 Diastolic blood pressure 72 mm[Hg] Romina Praisler-Wood RECONCILIATION COORDINATOR.[employer]CHANIC Work Phone: [facility] 06-12-2021 18:37-0400 Heart rate 96 /min Romina Praisler-Wood RECONCILIATION COORDINATOR.[employer] MECH[employer]IC Work Phone: [facility] 06-12-2021 18:37-0400 Respiratory rate 18 /min Romina Praisler-Wood RECONCILIATION COORDINATOR.[employer]CHANIC Work Phone: [facility] 06-12-2021 18:37-0400 SaO2% (BldA) [Mass fraction] 99 % Romina Praisler-Wood RECONCILIATION COORDINATOR.[employer] MECHANIC Work Phone: [facility] 06-12-2021 18:37-0400 Systolic blood pressure 122 mm[Hg] Romina Praisler-Wood RECONCILIATION COORDINATOR.[employer] Work Phone: [facility] 04-30-2021 06:00-0400 Body mass index (BMI) [Ratio] 39.27 kg/m2 Bell Scott MD Work Phone: [facility] 04-30-2021 06:00-0400 Body weight 107.05 kg Bell Scott MD Work Phone: [facility] 04-30-2021 05:52-0400 Body temperature 98.2 [degF] Bell Scott MD Work Phone: [facility] 04-30-2021 05:52-0400 Diastolic blood pressure 73 mm[Hg] Bell Scott MD Work Phone: [facility] 04-30-2021 05:52-0400 Heart rate 74 /min Bell Scott MD Work Phone: [facility] 04-30-2021 05:52-0400 Respiratory rate 18 /min Bell Scott MD Work Phone: [facility] 04-30-2021 05:52-0400 SaO2% (BldA) [Mass fraction] 99 % Bell Scott MD Work Phone: [facility] 04-30-2021 05:52-0400 Systolic blood pressure 122 mm[Hg] Bell Scott MD Work Phone: [facility] 04-17-2021 18:05-0500 Body height 165.1 cm Bell Scott MD Work Phone: [facility] 12-29-2020 16:00-0500 Body temperature 100.9 [degF] Adalberto Mcqueen MD Work Phone: [facility] 12-29-2020 16:00-0500 Diastolic blood pressure 81 mm[Hg] Adablerto Mcqueen MD Work Phone: [facility] 12-29-2020 16:00-0500 Heart rate 78 /min Adalberto Mcqueen MD Work Phone: [facility] 12-29-2020 16:00-0500 Respiratory rate 20 /min Adalberto Mcqueen MD Work Phone: [facility] 12-29-2020 16:00-0500 SaO2% (BldA) [Mass fraction] 98 % Adalberto Mcqueen MD Work Phone: [facility] 12-29-2020 16:00-0500 Systolic blood pressure 140 mm[Hg] Adalberto Mcqueen MD Work Phone: [facility] 12-19-2020 08:23-0400 Body height 167.6 cm Adalberto Mcqueen MD Work Phone: [facility] 12-18-2020 17:00-0400 Body mass index (BMI) [Ratio] 31.53 kg/m2 Adalberto Mcqueen MD Work Phone: [facility] 12-18-2020 17:00-0400 Body weight 88.6 kg Adalberto Mcqueen MD Work Phone: [facility] 01-12-2019 08:42-0500 Body Temperature 98.29 [degF] [facility] [place] 01-12-2019 08:42-0500 BP Diastolic 84 mm[Hg] [facility] , [place] 01-12-2019 08:42-0500 BP Systolic 144 mm[Hg] [facility] , [place] 01-12-2019 08:42-0500 Pulse (Heart Rate) 75 /min [facility] [place] 01-12-2019 08:42-0500 Pulse Oximetry 100 % [facility] [place] 01-12-2019 08:42-0500 Respiratory Rate 16 /min [facility], [place] 01-08-2019 13:41-0500 BMI (Body Mass Index) 28.25 kg/m2 [facility] [place] 01-08-2019 13:41-0500 Body weight 79.38 kg [facility] [place] 01-05-2019 12:47-0500 Height 167.6 cm [facility] [place] Encounters Encounter Date Encounter Type Care Provider Facility Start: 08-04-2024 End: 08-05-2024 Refill Bijan Elmore MD Work Phone: [facility] Comment on above: Refill Request Start: 08-04-2024 End: 08-05-2024 Refill Bijan Elmore MD Work Phone: [facility] Comment on above: Refill Request Start: 07-20-2024 End: 07-20-2024 ambulatory [facility] Start: 07-03-2024 End: 07-05-2024 Refill Cheryl Araujo APRN.[employer] Work Phone: [facility] Comment on above: Refill Request Start: 07-02-2024 End: 07-02-2024 Refill Bijan Elmore MD Work Phone: [facility] Comment on above: Refill Request Start: 06-16-2024 End: 06-16-2024 Refill Cheryl Araujo APRN.[employer] Work Phone: [facility] Comment on above: Refill Request Start: 05-31-2024 End: 05-31-2024 Refill Cheryl Araujo APRN.[employer] Work Phone: [facility] Comment on above: Refill Request Start: 05-25-2024 End: 06-25-2024 ambulatory Bijan Elmore MD Work Phone: [facility] Start: 05-25-2024 End: 05-25-2024 Refill Cheryl Araujo RECONCILIATION COORDINATOR.[employer] MECH[employer]IC Work Phone: [facility] Comment on above: Refill Request Start: 05-13-2024 End: 06-12-2024 ambulatory [facility] Start: 05-04-2024 End: 05-07-2024 ambulatory Bijan Elmore MD Work Phone: Internal Medicine [facility] Start: 04-30-2024 End: 04-30-2024 Refill Bijan Elmore MD Work Phone: [facility] Comment on above: Refill Request Start: 04-26-2024 End: 04-26-2024 Telephone encounter Bijan Elmore MD Work Phone: [facility] Comment on above: [facility] Start: 04-25-2024 End: 05-12-2024 Evaluation and management of inpatient Dinah Noe MD Work Phone: [facility] [place] [facility] Start: 04-25-2024 End: 04-25-2024 Emergency department patient visit Dr. Francisco Elmore MD Work Phone: -Emergency Department Work Phone: Start: 04-08-2024 ambulatory [facility] Facility:[facility] Start: 04-03-2024 End: 04-05-2024 Refill Cheryl Araujo RECONCILIATION COORDINATOR.[employer] MECHANIC Work Phone: [facility] Comment on above: Refill Request Start: 04-01-2024 End: 04-02-2024 Refill Bijan Elmore MD Work Phone: [facility] Comment on above: Refill Request Start: 04-01-2024 End: 04-02-2024 Refill Bijan Elmore MD Work Phone: [facility] Comment on above: Refill Request Start: 03-27-2024 End: 04-05-2024 Refill Cheryl Araujo RECONCILIATION COORDINATOR.[employer] MECHANIC Work Phone: [facility] Comment on above: Refill Request Start: 03-25-2024 End: 04-01-2024 Evaluation and management of inpatient Filippo Mark MD Work Phone: [facility] 6 Surgical Oncology Comment on above: 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, unspecified fracture morphology, subsequent encounter (Primary Dx); Tibia and fibula open fracture, right, sequela; Chronic multifocal osteomyelitis of right tibia (Multi); PONV (postoperative nausea and vomiting); Constipation, unspecified constipation type Start: 03-24-2024 ambulatory Out of Town Doctor Kaila gibbons:[facility] Start: 03-22-2024 End: 03-22-2024 Refill Cheryl Araujo RECONCILIATION COORDINATOR.[employer] MECHANIC Work Phone: [facility] Comment on above: Refill Request Start: 03-16-2024 End: 03-18-2024 Telephone encounter Bijan Elmore MD Work Phone: [facility] Comment on above: [facility] Start: 03-11-2024 End: 03-18-2024 Evaluation and management of inpatient Cruz Goodman MD Work Phone: [place] [address] Comment on above: Chronic multifocal o steomyelitis of right tibia (Multi) (Primary Dx); Tibial plateau fracture, right, sequela; Traumatic arthritis of right knee Start: 03-03-2024 End: 03-03-2024 Refill Kenia Mistry RECONCILIATION COORDINATOR.[employer]CH[employer]IC Work Phone: [facility] Comment on above: Refill Request Start: 03-03-2024 End: 03-03-2024 Refill Bijan Elmore MD Work Phone: [facility] Comment on above: Refill Request Start: 02-28-2024 End: 03-01-2024 Refill Clark Song MD Work Phone: [facility] Comment on above: Refill Request Start: 02-27-2024 Evaluation and manag ement of inpatient CRUZ GOODMAN [facility] Start: 02-24-2024 End: 02-24-2024 Postop follow up visit related to original px Di Jang PA-C Work Phone: [facility] Comment on above: 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 (Multi) (Primary Dx); Tibial plateau fracture, right, sequela; Wound dehiscence, surgical, initial encounter Start: 02-24-2024 End: 02-24-2024 [facility] Start: 02-24-2024 End: 02-24-2024 ambulatory TAHIRKobiLISSAJerry HAMMER~[id number] [facility] Start: 02-03-2024 End: 02-04-2024 Telephone encounter Bijan Elmore MD Work Phone: [facility] Comment on above: Orders (millers) Refill Request Start: 01-30-2024 End: 01-30-2024 Refill Clark Song MD Work Phone: [facility] Comment on above: Refill Request Start: 01-27-2024 End: 01-27-2024 Telephone encounter Bijan Elmore MD Work Phone: [facility] Comment on above: Orders (millers) Start: 01-26-2024 End: 01-27-2024 Refill Cheryl Araujo APRN.CNP Work Phone: [facility] Comment on above: Refill Request Start: 01-09-2024 End: 01-16-2024 Evaluation and management of inpatient Cruz Goodman MD Work Phone: [facility] [place] [facility] Comment on above: Tibia and fibula ope n fracture, right, sequela (Primary Dx); Traumatic arthritis of left hip; Postoperative pain Start: 01-06-2024 End: 01-06-2024 Refill Bijan Elmore MD Work Phone: [facility] Comment on above: Refill Request Start: 12-31-2023 End: 12-31-2023 Telephone encounter Bijan Elmore MD Work Phone: Family Practice Comment on above: Results; Orders Start: 12-30-2023 End: 12-30-2023 ambulatory [facility] Start: 12-30-2023 End: 12-30-2023 Encounter for other preprocedural examination [facility] Start: 12-30-2023 End: 12-30-2023 Encounter for preprocedural cardiovascular examination [facility] Start: 12-30-2023 End: 12-30-2023 Encounter for preprocedural respiratory examination [facility] Start: 12-30-2023 End: 12-30-2023 Refill Cheryl Araujo APRN.[employer] Work Phone: Family Practice Comment on above: Refill Request Start: 12-18-2023 End: 12-18-2023 ambulatory NO ASSIGNED PCP GENERIC PROVIDER [facility] Start: 12-17-2023 End: 12-19-2023 ambulatory BIJAN ELMORE Facility:[facility] Comment on above: Chair Start: 12-17-2023 End: 12-17-2023 Subsequent hospital visit by physician Tabatha [facility] Work Phone: Cardiology Lab Comment on above: Essential hypertensi on [I10] Start: 12-16-2023 End: 12-16-2023 ambulatory Cheryl Araujo APRN.[employer]CHAN[employer] Work Phone: Family Practice Comment on above: Wheelchair Start: 12-15-2023 End: 12-15-2023 ambulatory [facility] Start: 12-15-2023 End: 12-15-2023 Subsequent hospital visit by physician Aurelio Mancini Ct 1 [facility] Comment on above: Traumatic arthritis of right knee Tibial plateau fract ure, right, sequela Start: 12-15-2023 End: 12-15-2023 Telephone encounter Bijan Elmore MD Work Phone: Family Practice Comment on above: Order for wheelchair Start: 12-10-2023 End: 12-10-2023 Refill Bijan Elmore MD Work Phone: Family [facility] Comment on above: Refill Request Start: 12-10-2023 End: 12-10-2023 Telephone encounter Bijan Elmore MD Work Phone: [facility] Comment on above: Rx sent to wrong pha rmacy Start: 12-09-2023 End: 12-09-2023 ambulatory Bijan Elmore MD Work Phone: [facility] Comment on above: Rx .. Start: 12-05-2023 End: 12-05-2023 Refill Cheryl Araujo APRN.CNP Work Phone: [facility] Comment on above: Refill Request Start: 12-01-2023 End: 12-01-2023 ambulatory NO ASSIGNED PCP GENERIC PROVIDER [facility] Start: 12-01-2023 End: 12-01-2023 Office outpatient visit 40 minutes Cruz Goodman MD Work Phone: [facility] Comment on above: 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 (Multi) (Primary Dx); Tibial plateau fracture, right, sequela Start: 12-01-2023 End: 12-01-2023 ambulatory CRUZ GOODMAN [facility] Start: 11-23-2023 End: 11-24-2023 Refill Bijan Elmore MD Work Phone: [facility] Comment on above: Refill Request Start: 11-21-2023 End: 11-21-2023 Telephone encounter Bijan Elmore MD Work Phone: Neurology Comment on above: Received Outside Med ical Records ([facility] Order for incontinence supplies 11/21/2023) Start: 11-18-2023 End: 11-18-2023 ambulatory SELF Facility:[facility] Start: 11-18-2023 End: 11-18-2023 Office outpatient visit 25 minutes Bijan Elmore MD Work Phone: [facility] Comment on above: Traumatic arthritis of left hip (Primary Dx); Status post left hip replacement; Chronic hepatitis C without hepatic coma (HCC); Acquired hypothyroidism; Continuous dependence on cigarette smoking; Carpal tunnel syndrome, right; Essential hypertension; Chronic anxiety; Newly recognized heart murmur Start: 11-11-2023 End: 11-12-2023 Refill Bijan Elmore MD Work Phone: [facility] Comment on above: Refill Request Start: 11-07-2023 End: 11-11-2023 Refill Bijan Elmore MD Work Phone: [facility] Comment on above: Refill Request Start: 11-02-2023 End: 11-03-2023 Refill Cheryl Miller RECONCILIATION COORDINATOR.AUTO BRAKE MECHANIC Work Phone: [facility] Comment on above: Refill Request Start: 10-12-2023 End: 10-13-2023 Refill Bijan Elmore MD Work Phone: [facility] Comment on above: Refill Request Start: 10-08-2023 End: 10-08-2023 Refill Bijan Elmore MD Work Phone: [facility] Comment on above: Refill Request Start: 10-08-2023 End: 10-10-2023 Refill Bijan Elmore MD Work Phone: [facility] Comment on above: Refill Request Start: 09-28-2023 Orders Only Bijan moralez MD Work Phone: [facility] Start: 09-15-2023 Refill Bijan moralez MD Work Phone: [facility] Comment on above: Refill Request Home Healthcare/[facility] Start: 09-14-2023 ambulatory Bijan moralez MD Work Phone: [facility] Comment on above: Med approval Q. Refill Request Start: 09-08-2023 Refill Bijan moralez MD Work Phone: [facility] Comment on above: Refill Request Start: 08-30-2023 Refill Cheryl Miller RECONCILIATION COORDINATOR.AUTO BRAKE MECHANIC Work Phone: [facility] Comment on above: Refill Request Start: 08-29-2023 Refill Clark landeros MD Work Phone: Family [facility] Comment on above: Refill Request Start: 08-25-2023 End: 08-25-2023 Subsequent hospital visit by physician Keith Lloyd X-Ray 2 [facility] Comment on above: Traumatic arthritis of right knee Start: 08-25-2023 End: 08-25-2023 Office outpatient visit 40 minutes Cruz Goodman MD Work Phone: [facility] Comment on above: Traumatic arthritis of right knee; Pain of right tibia Start: 08-25-2023 End: 08-25-2023 ambulatory [facility] Start: 08-19-2023 ambulatory Cheryl Angela RECONCILIATION COORDINATOR.AUTO BRAKE MECHANIC Work Phone: Family [facility] Comment on above: External catheter Start: 08-19-2023 Telephone encounter Bijan Elmore MD Work Phone: Family [facility] Comment on above: Orders ([facility]) Start: 08-15-2023 Refill Bijan moralez MD Work Phone: [facility] Comment on above: Refill Request Start: 07-16-2023 ambulatory Cheryl Angela RECONCILIATION COORDINATOR.AUTO BRAKE MECHANIC Work Phone: [facility] Comment on above: Clonadine Refill Request Start: 07-12-2023 Refill Bijan moralez MD Work Phone: Family [facility] Comment on above: Refill Request Start: 07-07-2023 End: 07-07-2023 ambulatory [facility] Start: 07-07-2023 End: 07-07-2023 Subsequent hospital visit by physician Aurelio Mancini Ct 1 [facility] Comment on above: Avascular necrosis o f bone of left hip (Multi) Start: 06-25-2023 ambulatory Bijan moralez MD Work Phone: Internal [facility] Start: 06-17-2023 Refill Bijan moralez MD Work Phone: [facility] Comment on above: Refill Request Start: 06-12-2023 End: 06-12-2023 ambulatory [facility] Start: 06-12-2023 End: 06-12-2023 ambulatory [facility] Start: 06-12-2023 End: 06-12-2023 Office outpatient new 60 minutes Cruz Goodman MD Work Phone: [facility] Comment on above: Hip pain, chronic, l eft (Primary Dx); Avascular necrosis of bone of left hip (Multi); Traumatic arthritis of left hip; Traumatic arthritis of right knee; Closed posterior wall acetabular fx, left, sequela Start: 06-12-2023 End: 06-12-2023 Subsequent hospital visit by physician [facility] 1 [facility] Comment on above: Hip pain, chronic, l eft Start: 06-10-2023 Refill Bijan moralez MD Work Phone: [facility] Comment on above: Refill Request Start: 06-06-2023 Refill Bijan moralez MD Work Phone: [facility] Comment on above: Refill Request Start: 06-05-2023 ambulatory Bijan moralez MD Work Phone: [facility] Comment on above: Lft arm relief Start: 06-03-2023 Telephone encounter Bijan Elmore MD Work Phone: [facility] Comment on above: Orders ([facility]) Start: 05-20-2023 Refill Bijan moralez MD Work Phone: [facility] Comment on above: Refill Request Start: 05-04-2023 ambulatory Bijan moralez MD Work Phone: [facility] Start: 05-04-2023 Patient encounter procedure Bijan Elmore MD Work Phone: [facility] Comment on above: Referral #2 [facility] Q. Start: 04-28-2023 ambulatory Bijan moralez MD Work Phone: [facility] Start: 04-28-2023 Patient encounter procedure Bijan Elmore MD Work Phone: [facility] Comment on above: Referral Q. Start: 04-23-2023 Refill Bijan moralez MD Work Phone: [facility] Comment on above: Refill Request Start: 04-15-2023 Refill Clark landeros MD Work Phone: [facility] Comment on above: Refill Request Start: 03-26-2023 Orders Only Cheryl Angela RECONCILIATION COORDINATOR.AUTO BRAKE MECHANIC Work Phone: [facility] Comment on above: Seizures (HCC) (Prim shayla Dx) Start: 03-25-2023 Refill Bijan moralez MD Work Phone: [facility] Comment on above: Refill Request Start: 01-24-2023 Refill Bijan moralez MD Work Phone: [facility] Comment on above: Refill Request J Jono Topical Rx Q. Start: 12-31-2022 Telephone encounter Bijan Elmore MD Work Phone: [facility] Comment on above: Letter (Fax sent to Dr Kit Castellanos 12/31/2022) Start: 12-24-2022 Telephone encounter Bijan Elmore MD Work Phone: [facility] Comment on above: Medication Request ( [facility] Levetiracetam ) Start: 12-23-2022 Telephone encounter Bijan Elmore MD Work Phone: [facility] Comment on above: Orders Start: 12-04-2022 Refill Cheryl Angela RECONCILIATION COORDINATOR.AUTO BRAKE MECHANIC Work Phone: [facility] Comment on above: Refill Request Start: 12-02-2022 Telephone encounter Bijan Elmore MD Work Phone: [facility] Comment on above: wound culture ([facility] 1 ) Start: 11-29-2022 Non-patient / Non-visit Dr. Vipul Elmore Work Phone: [facility] Start: 11-28-2022 End: 12-17-[address] Francisco Elmore Work Phone: [facility] Work Phone: Start: 11-28-2022 End: 12-17-[address] Francisco Elmore Work Phone: [facility] Work Phone: Start: 11-26-2022 ambulatory Bijan moralez MD Work Phone: Family Practice Comment on above: Lab work Q Start: 11-21-2022 ambulatory Bijan moralez MD Work Phone: Family Practice Comment on above: Painful rt leg. Start: 10-31-2022 Telephone encounter Bijan Elmore MD Work Phone: Family Practice Comment on above: Orders (Incontinence supplies [facility] ) Received Outside Med ical Records (Imaging [facility] 10/30/22) Start: 10-30-2022 End: 10-30-2022 ambulatory [facility] Work Phone: Start: 10-30-2022 End: 10-30-2022 Patient encounter procedure [facility]-Cat Scan, [facility] Work Phone: Start: 10-29-2022 Telephone encounter Bijan Elmore MD Work Phone: Family Practice Comment on above: Orders (HOME CARE NU RSING) Start: 10-24-2022 Telephone encounter Bijan Elmore MD Work Phone: Family Practice Comment on above: Received Outside Med ical Records ([facility] Orders for adult underwear disposable underpad 10/24/2022) Start: 10-20-2022 Refill Cheryl Miller APRN.AUTO BRAKE MECHANIC Work Phone: Family Practice Comment on above: Refill Request Start: 10-17-2022 Social Work Alicia Josue [facility] Social Work Comment on above: Needs assistance wit h community resources (Primary Dx) Orders Start: 09-27-2022 Social Work Alicia Josue TELEMETRY TECH Prim [facility] Social Work Comment on above: Needs assistance wit h community resources (Primary Dx) Start: 09-26-2022 End: 09-26-2022 Patient encounter procedure Bijan Elmore MD Work Phone: [facility] Comment on above: Urinary incontinence , unspecified type (Primary Dx); Seizures (HCC); Chronic anxiety; Hypertension, essential; Hypothyroidism, acquired; Chronic pain syndrome; Chronic left hip pain; Gastroesophageal reflux disease, unspecified whether esophagitis present; Nausea; Screening for lipid disorders; Chronic ulcer of right leg, 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); Nocturnal enuresis; Stress incontinence; Functional urinary incontinence Start: 09-18-2022 Refill Bijan moralez MD Work Phone: [facility] Comment on above: Refill Request Start: 07-25-2022 Refill Bijan moralez MD Work Phone: [facility] Comment on above: Refill Request Start: 07-17-2022 ambulatory Bijan moralez MD Work Phone: [facility] Start: 07-05-2022 Refill Bijan moralez MD Work Phone: [facility] Comment on above: Refill Request Start: 06-24-2022 Telephone encounter Bijan Elmore MD Work Phone: [facility] Comment on above: DME order Start: 05-31-2022 Refill Cheryl Miller APRN.AUTO BRAKE MECHANIC Work Phone: [facility] Comment on above: Refill Request Start: 05-23-2022 Telephone encounter Isiah Dietrich MD Work Phone: [facility] Clinical Communication Comment on above: New Patient Start: 04-28-2022 Refill Bijan moralez MD Work Phone: [facility] Comment on above: Refill Request Start: 04-17-2022 End: 04-18-2022 ambulatory [facility] Start: 04-17-2022 End: 04-17-2022 Office outpatient visit 15 minutes Cass Guzman MD Work Phone: [facility] Comment on above: Left hip pain (Prima ry Dx); Acute pain of right knee; Open wound of right knee, subsequent encounter Start: 04-17-2022 End: 04-17-2022 Office outpatient visit 25 minutes Cass Guzman MD Work Phone: [facility] Comment on above: Left hip pain (Prima ry Dx); Acute pain of right knee; Open wound of right knee, subsequent encounter Start: 04-17-2022 Orders Only Andre ward MD Work Phone: [facility] Start: 04-17-2022 Telephone encounter Nicolas valdes MD Work Phone: [facility] Comment on above: Page out Start: 04-17-2022 End: 04-17-2022 Subsequent hospital visit by physician Cass Guzman MD Work Phone: [facility] Comment on above: Left hip pain Start: 04-09-2022 Orders Only Damian Moya PA-C Work Phone: [facility] Comment on above: Left hip pain (Prima ry Dx) Start: 04-03-2022 Refill Cheryl Miller APRN.CNP Work Phone: Family Medicine [place] Comment on above: Refill Request Start: 04-03-2022 End: 04-03-2022 [facility] Start: 04-03-2022 End: 04-03-2022 Office outpatient visit 40 minutes Jarvis Almonte MD Work Phone: [facility] [place] Comment on above: Traumatic open wound of right lower leg with infection, initial encounter (Primary Dx); MRSA infection Start: 03-18-2022 Telephone encounter Bijan Elmore MD Work Phone: Family Practice Comment on above: Received Outside Med ical Records ([facility] summary visit 03/15/2022) Start: 03-15-2022 End: 03-16-2022 ambulatory PACHECO BOOTHE [facility] Start: 03-15-2022 End: 03-15-2022 Subsequent [...] Refill Bijan moralez MD Work Phone: NURSE CAN SEALER Comment on above: Refill Request Start: 03-04-2022 Refill Bijan moralez MD Work Phone: Family Medicine [place] Comment on above: Refill Request Start: 02-20-2022 Telephone encounter Amelia Marie LPN [facility] [place] Comment on above: Cancelled Appointmen t Start: 02-03-2022 Refill Bijan moralez MD Work Phone: Family Practice Comment on above: Refill Request Start: 02-02-2022 Refill Bijan moralez MD Work Phone: Family Practice Comment on above: Refill Request Start: 01-31-2022 End: 02-01-2022 ambulatory PACHECO BOOTHE [facility] Start: 01-09-2022 End: 01-09-2022 ambulatory JARVIS ALMONTE [facility] Start: 12-24-2021 End: 12-24-2021 ambulatory FRANCISCO WARE [facility] Start: 12-17-2021 End: 12-17-2021 ambulatory MACK NEW [facility] Start: 12-13-2021 ambulatory CASSY KORIN [facility] Start: 12-12-2021 End: 12-12-2021 ambulatory Nurse Triage Veronica/Hermelinda Work Phone: Nurse Phone Triage Comment on above: Nurse Triage Call (W ound care concern ) Start: 12-11-2021 ambulatory Bijan moralez MD Work Phone: [facility] Comment on above: Nurse Triage Call Start: 11-30-2021 ambulatory FRANCISCO Powell [facility] Start: 11-28-2021 Telephone encounter Bijan Elmore MD Work Phone: Family Practice Comment on above: Request Outside [facility] Records ([facility]) Start: 11-27-2021 Telephone encounter Bijan Elomre MD Work Phone: Family Practice Comment on above: Orders (Home health care for wound) Start: 11-16-2021 End: 11-16-2021 ambulatory MACK Bianchi [facility] Start: 11-05-2021 Telephone encounter Bijan Elmore MD Work Phone: Family Practice Comment on above: Electronic Communica tion Start: 11-02-2021 Refill Bijan moralez MD Work Phone: Family [facility] Comment on above: Refill Request Start: 10-26-2021 [facility] Start: 10-15-2021 ambulatory Jyoti Ni [facility] Start: 10-10-2021 End: 10-11-2021 ambulatory CASS GUZMAN [facility] Start: 10-10-2021 Telephone encounter Bijan Elmore MD Work Phone: Family [facility] Comment on above: Orders (Woundcare Ad [facility] patient care solution) Start: 10-10-2021 End: 10-10-2021 Subsequent hospital visit by physician Cass Guzman MD Work Phone: [facility] Fa[facility]em Dept Start: 10-09-2021 Telephone encounter Bijan Elmore MD Work Phone: [facility] Comment on above: Patient Question Start: 10-03-2021 Telephone encounter Bijan Elmore MD Work Phone: Family Practice Comment on above: Orders ([facility] pt care solutions) Start: 09-17-2021 End: 09-17-2021 Patient encounter procedure Bijan Elmore MD Work Phone: [facility] Comment on above: Left hip pain (Prima ry Dx); Seizures (HCC); Chronic anxiety; Right leg pain Start: 09-17-2021 Refill Cheryl Angela RECONCILIATION COORDINATOR.AUTO BRAKE MECHANIC Work Phone: [facility] Comment on above: Refill Request Start: 09-17-2021 Telephone encounter Bijan Elmore MD Work Phone: [facility] Comment on above: Refill Request Start: 09-16-2021 ambulatory Elsa azul RN NURSE CAN SEALER Comment on above: Medication Problem Start: 09-14-2021 Telephone encounter Bijan Elmore MD Work Phone: [facility] Comment on above: Leg Pain Start: 09-08-2021 Nurse Triage Monisha Estevez RN NURSE CAN SEALER Comment on above: Refill Request Start: 09-06-2021 Telephone encounter Bijan Elmore MD Work Phone: [facility] Comment on above: Received Outside Med [facility] Records (ED summary [facility]) Start: 09-05-2021 Non-patient / Non-visit Dr. Vipul Elmore Work Phone: [facility] Start: 09-05-2021 End: 09-05-2021 Emergency department patient visit Dr. Francisco Elmore Work Phone: [facility]-Emergency Department Start: 09-04-2021 Telephone encounter Bijan Elmore MD Work Phone: [facility] Comment on above: Orders ([facility]) Start: 08-29-[address] Jose Elmore Work Phone: [facility]-Occupational Therapy Start: 08-21-2021 Refill Cheryl Angela RECONCILIATION COORDINATOR.AUTO BRAKE MECHANIC Work Phone: [facility] Comment on above: Refill Request Start: 08-15-2021 ambulatory Bijan moralez MD Work Phone: [facility] Start: 08-06-2021 Refill Bijan moralez MD Work Phone: Family Practice Comment on above: Refill Request Start: 07-31-2021 Telephone encounter Bijan Elmore MD Work Phone: Family Practice Comment on above: Orders ([facility]) Start: 07-26-2021 Telephone encounter Bijan Elmore MD Work Phone: Family Practice Comment on above: Received Outside Med ical Records ([facility]) Start: 07-23-2021 Telephone encounter Bijan Elmore MD Work Phone: Family Practice Comment on above: Medication Request Start: 07-20-2021 Telephone encounter Bijan Elmore MD Work Phone: Family Practice Comment on above: Received Outside Med ical Records ([facility] Occupational therapy [facility] 07/19/2021) Start: 07-19-2021 Refill Cheryl Miller APRN.CNP Work Phone: Family Practice Comment on above: Refill Request Start: 07-19-2021 Telephone encounter Bijan Elmore MD Work Phone: Family Practice Comment on above: Rehab service (Evalu ation from [facility] PT) Start: 07-13-2021 Telephone encounter Bijan Elmore MD Work Phone: Family Practice Comment on above: Orders ([facility] 07/12/2021) Refill Request Start: 07-12-2021 End: 07-12-2021 ambulatory Bijan Elmore MD Work Phone: Family Practice Comment on above: NO SHOW (Primary Dx) Start: 07-12-2021 End: 07-12-2021 Telemedicine consultation with patient Bijan Elmore MD Work Phone: [facility] Start: 07-09-2021 Telephone encounter Bijan Elmore MD Work Phone: Family Practice Comment on above: Orders ([facility] 07/03/2021) Orders ([facility] 07/06/2021) Patient Request orders faxed (review ed and signed by PCP sent back to [facility].) Start: 07-05-2021 Telephone encounter Bijan Elmore MD Work Phone: [facility] Comment on above: Orders Orders (fax to [facility] for Occupational and physical therapy to [phone]) Patient Question (pa tient requesting call back) Start: 07-04-2021 Telephone encounter Bijan Elmore MD Work Phone: Family [facility] Comment on above: Patient Update [facility] Orders (Signed by PC P and faxed to [facility]) Start: 07-03-2021 Telephone encounter Bijan Elmore MD Work Phone: [facility] Comment on above: Patient Update ([facility]) Start: 07-02-2021 Telephone encounter Bijan Elmore MD Work Phone: Family [facility] Comment on above: Received Outside Med ical Records (from [facility]) Start: 06-29-2021 Telephone encounter Bijan Elmore MD Work Phone: Family [facility] Comment on above: Orders ([employer] Patient Care Solution 06/29/2021 wound care supplies) Patient Update Start: 06-28-2021 Telephone encounter Bijan Elmore MD Work Phone: [facility] Comment on above: signed orders (faxed to [facility] as requested.) Start: 06-27-2021 End: 06-27-2021 Patient encounter procedure Justen Morgan MD Work Phone: Pain Management Comment on above: Traumatic injury (Pr imary Dx); Chronic pain syndrome; Multiple fractures Start: 06-27-2021 Telephone encounter Cheryl guerra RECONCILIATION COORDINATOR.AUTO BRAKE MECHANIC Work Phone: [facility] Comment on above: Results Appointment (Pre-Rosalind ointment Notification ) Start: 06-26-2021 End: 06-26-2021 Patient encounter procedure Cheryl Miller APRN.AUTO BRAKE MECHANIC Work Phone: Family Practice Comment on above: Hypertension, essent ial (Primary Dx); Gastroesophageal reflux disease, unspecified whether esophagitis present; Chronic pain syndrome; Hypothyroidism, acquired; Debility; Seizures (HCC); Chronic anxiety Start: 06-26-2021 Telephone encounter Bijan Elmore MD Work Phone: [facility] Comment on above: Patient Update (From [facility]) Start: 06-22-2021 Telephone encounter Bijan Elmore MD Work Phone: Family Medicine Comment on above: Orders ([facility] re 06/21/2021) Start: 06-20-2021 Telephone encounter Bijan Elmore MD Work Phone: Family Practice Comment on above: Appointment (Video) Start: 06-20-2021 End: 06-20-2021 ambulatory Bijan Elmore MD Work Phone: Family [facility] Comment on above: Chronic anxiety ([facility] monisha Dx); Fractures, multiple; Open fracture of condyle of right tibia; Fx malar & max bones ace LeFort 3 open (HCC); Traumatic closed nondisplaced fracture of left acetabulum, sequela; Laceration of spleen, sequela Start: 06-20-2021 End: 06-20-2021 Telemedicine consultation with patient Bijan Elmore MD Work Phone: [facility] Start: 06-18-2021 Telephone encounter Bijan Elmore MD [facility]: [facility] [place] Comment on above: Received Outside Med ical Records (from [facility]) Orders (for occupati onal therapy sent to [facility]) Patient Update (from [facility]) Orders (faxed to [facility]) Medication Request ( clonazepam) Start: 06-13-2021 Telephone encounter Bijan Elmore MD Work Phone: [facility] Comment on above: Orders ([facility] re orders 06/12/2021) Start: 06-12-2021 End: 06-12-2021 Patient encounter procedure Romina Bhat APRN.CNP Work Phone: [facility] Comment on above: Leg wound, right, in itial encounter (Primary Dx) Start: 06-07-2021 Nurse Triage Bijan moralez MD Work Phone: [facility] Comment on above: Orders Start: 05-29-2021 Telephone encounter Bijan Elmore MD Work Phone: [facility] Comment on above: Orders Start: 05-28-2021 ambulatory ELSIE R JOSE [facility] Start: 05-23-2021 ambulatory Bijanrobi Elmore [facility] Start: 05-15-2021 ambulatory Elsie Jose [facility] Start: 05-15-2021 End: 05-15-2021 Subsequent hospital visit by physician Elsie Moreno MD Work Phone: [facility] Radiology Start: 04-18-2021 End: 04-30-2021 Evaluation and management of inpatient UNKNOWN PROVIDER [facility] Start: 04-17-2021 End: 04-30-2021 Evaluation and management of inpatient Bell Scott MD Work Phone: [facility] MED SUR[facility] Comment on above: Debility (Primary Dx ); Open wound knee/leg with tendon involvment, right, sequela; Anxiety Start: 03-29-2021 End: 04-12-2021 ambulatory UNKNOWN PROVIDER [facility] Start: 01-26-2021 End: 02-15-2021 Evaluation and management of inpatient UNKNOWN PROVIDER [facility] Start: 01-08-2021 ambulatory [facility] Start: 12-20-2020 End: 12-20-2020 ambulatory UNKNOWN PROVIDER Facility:[facility] Start: 12-18-2020 End: 12-18-2020 ambulatory UNKNOWN PROVIDER Facility:[facility] Start: 12-18-2020 End: 12-29-2020 Evaluation and management of inpatient Adalberto Mcqueen [facility] Start: 12-18-2020 End: 12-29-2020 Evaluation and management of inpatient Adalberto Mcqueen MD Work Phone: [facility] Start: 02-25-2019 End: 02-25-2019 Subsequent hospital visit by physician Clementine Elkins RECONCILIATION COORDINATOR - VISION THERAPIST Work Phone: [facility] Start: 02-11-2019 End: 02-11-2019 Subsequent hospital visit by physician Clementine Elkins RECONCILIATION COORDINATOR - VISION THERAPIST Work Phone: [facility] Start: 02-04-2019 End: 02-04-2019 Subsequent hospital visit by physician Clementine Elkins RECONCILIATION COORDINATOR - VISION THERAPIST Work Phone: [facility] Start: 02-01-2019 End: 02-01-2019 Subsequent hospital visit by physician Clementine Elkins RECONCILIATION COORDINATOR - VISION THERAPIST Work Phone: [facility] Start: 01-25-2019 End: 01-25-2019 Subsequent hospital visit by physician Clementine Elkins RECONCILIATION COORDINATOR - VISION THERAPIST Work Phone: [facility] Start: 01-18-2019 End: 01-18-2019 Subsequent hospital visit by physician Clementine Elkins Work Phone: [facility] Start: 01-05-2019 End: 01-12-2019 Evaluation and management of inpatient Clau Durham Work Phone: [facility] Comment on above: IV [...] Work Phone: Start: 05-08-2024 PREPARE RBC Jose Duluth enschein DO Work Phone: Start: 05-08-2024 Basic [...] TRANSFUSE RED BLOOD CELLS Cindy More iy RECONCILIATION COORDINATOR-MANAGER INVESTMENT, DNP Work Phone: Start: 05-05-2024 Injection aa&/strd [...] pane l calcium total Heathbhavyaleti Ward Herlinda RECONCILIATION COORDINATOR-AUTO BRAKE MECHANIC Work Phone: Start: 05-03-2024 Basic metabolic pane l calcium total Sandi O'Uvaldo PA-C Work Phone: Start: 05-03-2024 Blood typing serolog ic rh (d) Sandi O'Uvaldo PA-C Work Phone: Start: 05-02-2024 Basic metabolic pane l calcium total Sandi O'Uvaldo PA-C Work Phone: Start: 05-01-2024 Basic metabolic pane l calcium total Comfort R Tyo RECONCILIATION COORDINATOR-AUTO BRAKE MECHANIC Work Phone: Start: 04-30-2024 Basic metabolic pane l calcium total Comfort R Tyo RECONCILIATION COORDINATOR-AUTO BRAKE MECHANIC Work Phone: Start: 04-29-2024 Basic metabolic pane l calcium total Comfort R Tyo RECONCILIATION COORDINATOR-AUTO BRAKE MECHANIC Work Phone: Start: 04-29-2024 SLIDE REQUEST Tr ga MD Work Phone: Start: 04-28-2024 End: 04-28-2024 Culture fngi mold/yeast prsmptv oth xcpt blood Katie Evert PA-C Work Phone: Start: 04-28-2024 End: 04-28-2024 Debridement muscle & fascia 20 sq cm/< Filippo Mark MD Work Phone: Start: 04-28-2024 Basic metabolic pane l calcium total Comfort R Tyo RECONCILIATION COORDINATOR-AUTO BRAKE MECHANIC Work Phone: Start: 04-28-2024 End: 04-28-2024 Blood typing serologic rh (d) Comfort R Tyo RECONCILIATION COORDINATOR-AUTO BRAKE MECHANIC Work Phone: Start: 04-27-2024 Drug screen quantita [...] metabolic pane l calcium total Rajeev Pate RECONCILIATION COORDINATOR-AUTO BRAKE MECHANIC Work Phone: Start: 03-31-2024 Basic metabolic pane l calcium total Rajeev Pate RECONCILIATION COORDINATOR-AUTO BRAKE MECHANIC Work Phone: Start: 03-31-2024 C-reactive protein Deborah porsha Loyd PA-C Work Phone: Start: 03-30-2024 Basic metabolic pane l calcium total Comfort R Tyo RECONCILIATION COORDINATOR-AUTO BRAKE MECHANIC Work Phone: Start: 03-29-2024 End: 03-29-2024 Radiologic examination knee 1/2 views Amie Cha PA-C Work Phone: Start: 03-29-2024 Basic metabolic pane l calcium total Anitha De La O PA-C Work Phone: Start: 03-29-2024 Basic metabolic pane l calcium total Comfort R Tyo RECONCILIATION COORDINATOR-AUTO BRAKE MECHANIC Work Phone: Start: 03-29-2024 C-reactive protein Manny [...] pane l calcium total Comfort R Tyo RECONCILIATION COORDINATOR-AUTO BRAKE MECHANIC Work Phone: Start: 03-27-2024 C-reactive protein Manny en O'Uvaldo PA-C Work Phone: Start: 03-26-2024 Basic metabolic pane l calcium total Sandi O'Uvaldo PA-C Work Phone: Start: 03-26-2024 C-reactive protein Manny en O'Uvaldo PA-C Work Phone: Start: 03-26-2024 Basic metabolic pane l calcium total Comfort R Tyo RECONCILIATION COORDINATOR-AUTO BRAKE MECHANIC Work Phone: Start: 03-25-2024 End: 03-25-2024 TRANSFUSE RED BLOOD CELLS Comfort R Tyo A PRN-AUTO BRAKE MECHANIC Work Phone: Start: 03-25-2024 PREPARE RBC Comfort R T yo RECONCILIATION COORDINATOR-AUTO BRAKE MECHANIC Work Phone: Start: 03-25-2024 Chloride nellyd Filippo Landeros MD Work Phone: Start: 03-25-2024 Radiologic exam ches t single view Clark Walters MD Work Phone: Start: 03-25-2024 Potassium serum plasma/whole blood Comfort R Tyo RECONCILIATION COORDINATOR-AUTO BRAKE MECHANIC Work Phone: Start: 03-25-2024 PULSE OXIMETRY, CONTINUOUS Clark Walters MD Work Phone: Start: 03-25-2024 End: 03-25-2024 Chloride bld Elin Silvestre [email or web address] Work Phone: Start: 03-25-2024 Chloride bld Luis Rodríguez [email or web address] [email or web address] Work Phone: Start: 03-25-2024 End: 03-25-2024 TRANSFUSE RED BLOOD CELLS Siham [place] Work Phone: Start: 03-25-2024 Blood count complete automated [employer] Work Phone: Start: 03-25-2024 Chloride bld Siham Chaf [email or web address] [email or web address] Work Phone: Start: 03-25-2024 Culture tubercle/oth acid-fast bacilli any isol Filippo Mark MD Work Phone: Start: 03-25-2024 Blood typing serolog ic rh (d) Siapryl [employer] Work Phone: Start: 03-25-2024 End: 03-25-2024 Calcium ionized Siham [employer]ID[email or web address] Work Phone: Start: 03-25-2024 PREPARE RBC Siham Chaf fag [email or web address] Work Phone: Start: 03-25-2024 Urine test visual color cmprsn meths Laura HAMMER-C Work Phone: Start: 03-25-2024 End: 03-25-2024 Free skin flap w/microvascular anastomosis Filippo Mark MD Work Phone: Start: 03-18-2024 Basic metabolic pane l calcium total Cerdick Mendez MD Work Phone: Start: 03-17-2024 Basic [...] Insertion picc w/rs& i 5 yr/> Daniele Barnett MD Work Phone: Start: 01-11-2024 Cul prsmptv [...] on above: Performed By: #### C /BLD ####[address] [address] Start: 12-27-2020 Radiologic exam ches t single view Remy Lei MD Work Phone: Start: 12-27-2020 Basic metabolic pane l calcium total Sara Drummond MD Work Phone: Start: 12-27-2020 Manual Differential panel - Blood Sara rDummond MD Work Phone: Start: 12-26-2020 Radiologic exam [...] exam ches t single view Kirston Call RECONCILIATION COORDINATOR - AUTO BRAKE MECHANIC Work Phone: Start: 12-21-2020 Radiologic exam ches [...] 01-07-2019 Drug screen quantita tive vancomycin Nisreen Edgardnudlulu Work Phone: Start: 01-07-2019 MANUAL DIFFERENTIAL Carmen [...] Author Start: 05-13-2027 Diabetes Screening Diabetes Screening [facility] Start: 04-01-2027 Diabetes Screening Diabetes Screening [facility] Start: 03-18-2027 Diabetes Screening Diabetes Screening [facility] Start: 01-09-2027 Diabetes Screening Diabetes Screening [facility] Start: 12-29-2026 Diabetes Screening Diabetes Screening [facility] Start: 12-29-2024 Thyroid stimulating hormone measurement [facility] Start: 11-17-2024 Annual PCP Team Chronic Disease Visit Annual PCP Team Chronic Disease Visit [facility] Start: 10-27-2024 Lipid 1996 panel - Serum or Plasma Lipid Screening [facility] Start: 10-27-2024 Lipid panel Lipid Screening [facility] Start: 10-27-2024 LIPID SCREEN LIPID SCREEN [facility] Start: 10-18-2024 Influenza vaccination Influenza Vaccine (Season Ended) [facility] Start: 06-18-2024 End: 06-18-2024 ambulatory [facility]3] Syed Start: 05-31-2024 End: 05-31-2024 ambulatory [facility]3] Nubia Start: 05-17-2024 End: 05-17-2024 Patient encounter procedure 05/17/2024 2:20 PM EDT Office Visit Family Practice [address] [place] [address] Bijan Elmore MD [address] [place], [place] [id number] follow up [facility] Comment on above: follow up Start: 05-14-2024 ambulatory [facility]3] [place] [facility] Start: 05-04-2024 End: 08-03-2024 Basic metabolic 2000 panel - Serum or Plasma BASIC METABOLIC PANEL Lab Routine Essential hypertension Expected: 05/04/2024, Expires: 08/03/2024 [facility] Work Phone: Comment on above: Expected: 05/04/2024, Expires: Start: 05-04-2024 End: 08-03-2024 Hemoglobin A1c in Blood HEMOGLOBIN A1C Lab Routine Medication management Expected: 05/04/2024, Expires: 08/03/2024 [facility] Comment on above: Expected: 05/04/2024, Expires: Start: 04-27-2024 End: 04-27-2024 Telemedicine consultation with patient 04/27/2024 11:20 AM EDT Telemedicine [facility]3] Sy[address] [place] [phone] [place] [address] [place] [address] [facility]3] Syed Start: 04-26-2024 End: 04-26-2024 Patient encounter procedure 04/26/2024 11:40 AM EDT Office Visit [facility]3] Nubia [address] [place] [id number] [place] [address] [address] Department [place] [address] [facility] Start: 04-25-2024 End: 04-25-2024 [facility] Start: 04-25-2024 Microscopic observation [Identifier] in Unspecified specimen by Gram stain [facility] Start: 04-25-2024 Wound Culture Wound Culture [facility] Start: 04-19-2024 Diabetes Screening Diabetes Screening [facility] Start: 04-16-2024 End: 04-16-2024 Follow-up encounter 04/16/2024 10:40 AM EST Follow-Up [facility] [address] [place] [address] [place] [address] [place] [address] [facility] Start: 04-12-2024 End: 04-12-2024 Patient encounter procedure 04/12/2024 1:00 PM EST Office Visit [facility] [address] [facility] [address] [place] [address] [place] [address] [address] Department [place] [address] [facility] Start: 04-11-2024 Annual PCP Team Chronic Disease Visit Annual PCP Team Chronic Disease Visit [facility] Start: 04-06-2024 End: 04-06-2024 Patient encounter procedure 04/06/2024 10:00 AM EST Office Visit [facility] [address] [place] [address] Di Jang PA-C [address] [place] [address] [facility] Start: 04-05-2024 End: 04-05-2024 Patient encounter procedure 04/05/2024 9:45 AM EST Office Visit [facility] [address] [facility] [address] [place] [phone] [place] [address] Department [place] [address] [facility] Start: 02-20-2024 End: 02-20-2024 Follow-up encounter 02/20/2024 10:00 AM EST Follow-Up [facility] [address] [facility] [address] [place] [phone] [place] [address] [place] [address] [facility] Start: 02-11-2024 End: 05-12-2024 Thyrotropin [Units/volume] in Serum or Plasma THYROID STIMULATING HORMONE Lab Routine Acquired hypothyroidism Expected: 02/11/2024, Expires: 05/12/2024 [facility] Work Phone: Comment on above: Expected: 02/11/2024, Expires: Start: 01-26-2024 End: 01-26-2024 Patient encounter procedure 01/26/2024 2:20 PM EST Office Visit [facility] [address] [address] Di Jang PA-C [address] [place] [address] [facility] Start: 01-26-2024 End: 01-26-2024 Patient encounter procedure 01/26/2024 11:40 AM EST Office Visit [facility] [address] [address] Di Jang PA-C [address] [place] [address] [facility]3] Manfredlenin Start: 01-09-2024 End: 01-09-2024 Admission to same day surgery center [facility]3] Syed [place] Comment on above: Revision Arthroplasty Partial Hip [09396 (CPT )] Excision Bone Tibia/ Fibula [91485 (CPT )] Start: 01-09-2024 End: 01-09-2024 Conv [...] physician 01/09/2024 5:20 AM EST Hospital Encounter [facility]3] [place] [address] [place] [address] [place] [address] [place] [address] [facility]3] [place] Start: 12-27-2023 Annual PCP Team Chronic Disease Visit Annual PCP Team Chronic Disease Visit [facility] Start: 12-25-2023 End: 12-25-2023 ambulatory 12/25/2023 2:45 PM EST Results Only [facility] [address] [place] [address] [facility] Station Start: 12-23-2023 End: 12-23-2023 Admission to establishment 12/23/2023 2:30 PM EST Pre-Admission Testing [facility]3] [address] [address] [facility]3] Start: 12-19-2023 End: 12-19-2023 ambulatory 12/19/2023 3:00 PM EDT Results Only [facility] Station [address] [address] [facility] Station Start: 12-19-2023 End: 03-19-2024 CBC panel - Blood by Automated count COMPLETE BLOOD COUNT Lab Routine Traumatic arthritis of left hip Essential hypertension Expected: 12/19/2023, Expires: 03/19/2024 [facility] Comment on above: Expected: 12/19/2023, Expires: Start: 12-19-2023 End: 03-19-2024 Comprehensive metabolic 2000 panel - Serum or Plasma COMPREHENSIVE METABOLIC PANEL Lab Routine Essential hypertension Chronic anxiety Expected: 12/19/2023, Expires: 03/19/2024 [facility] Work Phone: Comment on above: Expected: 12/19/2023, Expires: Start: 12-19-2023 End: 03-19-2024 Hepatitis C virus RNA [Units/volume] (viral load) in Serum or Plasma by CAPRICE with probe detection HEPATITIS C RNA QUANTIFICATION BY PCR, PLASMA/SERUM Lab Routine Chronic hepatitis C without hepatic coma (HCC) Expected: 12/19/2023, Expires: 03/19/2024 [facility] Comment on above: Expected: 12/19/2023, Expires: Start: 12-19-2023 End: 03-19-2024 Lipid 1996 panel - Serum or Plasma LIPID PANEL BASIC Lab Routine Essential hypertension Expected: 12/19/2023, Expires: 03/19/2024 [facility] Comment on above: Expected: 12/19/2023, Expires: Start: 12-19-2023 End: 03-19-2024 Thyrotropin [Units/volume] in Serum or Plasma THYROID STIMULATING HORMONE Lab Routine Acquired hypothyroidism Expected: 12/19/2023, Expires: 03/19/2024 [facility] Comment on above: Expected: 12/19/2023, Expires: Start: 12-18-2023 End: 12-18-2023 Clinical Support 12/18/2023 10:00 AM EDT Clinical Support [facility]3] [address] [place] [address] [facility]3] Start: 12-17-2023 End: 12-17-2023 Patient encounter procedure 12/17/2023 2:00 PM EDT Appointment [facility] [address] [place] [address] Essential hypertension [I10]; Newly recognized heart murmur [R01.1]rescheduled with the patient Cardiology Lab Comment on above: Essential hypertension [I10]; Newly leno gnized heart murmur [R01.1]rescheduled with the patient Start: 12-15-2023 End: 12-15-2023 Patient encounter procedure 12/15/2023 2:15 PM EDT Appointment [facility] [address] [place] [phone] [facility] Start: 12-08-2023 End: 12-08-2023 Patient encounter procedure 12/08/2023 1:20 PM EDT Appointment Cat Scan [address] [place] [address] CT TIBA Fibua RT WO IVCON Cat Scan Comment on above: CT TIBA Fibua RT WO IVCON Start: 12-03-2023 End: 12-03-2023 Patient encounter procedure 12/03/2023 2:00 PM EDT Appointment [facility] [address] [place] [address] Essential hypertension [I10]; Newly recognized heart murmur [R01.1] Cardiology Lab Comment on above: Essential hypertension [I10]; Newly leno gnized heart murmur [R01.1] Start: 12-01-2023 End: 11-30-2024 C reactive protein [Mass/volume] in Serum or Plasma [facility] Work Phone: Comment on above: Expected: 12/01/2023 (Approximate), Expi res: 11/30/2024 Start: 12-01-2023 End: 11-30-2024 CT Lower leg - right WO contrast CT tibia fibula right wo IV contrast Imaging Routine Tibial plateau fracture, right, sequela Expected: 12/01/2023 (Approximate), Expires: 11/30/2024 [facility] Service Area Work Phone: Comment on above: Expected: 12/01/2023 (Approximate), Expi res: 11/30/2024 Start: 12-01-2023 End: 11-30-2024 Erythrocyte sedimentation rate [facility] Work Phone: Comment on above: Expected: 12/01/2023 (Approximate), Expi res: 11/30/2024 Start: 12-01-2023 End: 12-01-2023 Patient encounter procedure 12/01/2023 1:20 PM EDT Office Visit [facility] [address] [facility] 5th [place] [address] [place] [address] [address] Department [place] [address] [facility] Start: 11-18-2023 End: 11-18-2023 Patient encounter procedure 11/18/2023 10:40 AM EDT Office Visit Family Practice [address] [place] [address] [address] [place], [place] [phone] Bijan Elmore MD [address] [place] [address] [place], [place] [id number] med refill Family Practice Comment on above: med refill Start: 10-19-2023 Covid-19 Vaccine ( season) Covid-19 Vaccine () [facility] Start: 10-19-2023 Covid-19 Vaccine (1 - 2024-25 season) Covid-19 Vaccine ( season) [facility] Start: 10-19-2023 Influenza vaccination [facility] Start: 10-19-2023 [facility] Start: 09-27-2023 ANNUAL PCP TEAM CHRONIC DISEASE VISIT ANNUAL PCP TEAM CHRONIC DISEASE VISIT [facility] Start: 08-25-2023 End: 08-24-2024 CT Knee - right WO contrast CT knee right wo IV contrast Imaging STAT Traumatic arthritis of right knee Expected: 08/25/2023, Expires: 08/24/2024 [facility] Work Phone: Comment on above: Expected: 08/25/2023, Expires: Start: 08-25-2023 End: 08-24-2024 CT Lower leg - right WO contrast CT tibia fibula right wo IV contrast Imaging STAT Pain of right tibia Expected: 08/25/2023, Expires: 08/24/2024 [facility] Work Phone: Comment on above: Expected: 08/25/2023, Expires: Start: 08-25-2023 End: 08-10-2024 XR Knee - right 1 or 2 Views [facility] Service Area Work Phone: Comment on above: Expected: 08/25/2023, Expires: 5 Once for 1 Occurrenc es starting 08/25/2023 until 08/25/2023 Start: 08-25-2023 End: 08-10-2024 XR Tibia and Fibula - right 2 Views [facility] Work Phone: Comment on above: Expected: 08/25/2023, Expires: 5 Once for 1 Occurrenc es starting 08/25/2023 until 08/25/2023 Start: 08-11-2023 End: 08-11-2023 Patient encounter procedure 08/11/2023 1:00 PM EDT Office Visit [facility] [address] [facility] 5th [place] [address] [place] [address] [address] Department [place] [address] [facility] Start: 06-30-2023 End: 06-30-2023 Patient encounter procedure 06/30/2023 11:00 AM EDT Office Visit [facility] [address] [facility] 5th [place] [address] [place] [address] [address] Department of Orthopedics [place] [id number] [facility] Start: 06-18-2023 COVID-19 Vaccine (#1) COVID-19 Vaccine (#1) [employer] Comment on above: Postponed from 1972 (Patient Refus ed) Start: 06-18-2023 DTaP/Tdap/Td Vaccines (1 - Tdap) DTaP/Tdap/Td Vaccines (1 - Tdap) [employer] Comment on above: Postponed from 12/19/2020 (Patient Refus ed) Start: 06-18-2023 Pneumococcal Vaccine: Pediatrics (0 to 5 Years) and At-Risk Patients (6 to 64 Years) (2 - PPSV23 if available, else PCV20) Pneumococcal Vaccine: Pediatrics (0 to 5 Years) and At-Risk Patients (6 to 64 Years) (2 - PPSV23 if available, else PCV20) [facility] [employer] Comment on above: Postponed from 01/31/2022 (Patient Refus ed) Start: 06-18-2023 Zoster Vaccines (1 of 2) Zoster Vaccines (1 of 2) [facility] [employer] Comment on above: Postponed from 02/28/2022 (Patient Refus ed) Start: 06-12-2023 End: 06-11-2024 CT Hip - left WO contrast CT hip left wo IV contrast Imaging Routine Hip pain, chronic, left Expected: 06/12/2023, Expires: 06/11/2024 [facility] Work Phone: Comment on above: Expected: 06/12/2023, Expires: Start: 06-12-2023 End: 06-09-2024 XR Hip Views [facility] Service Area Work Phone: Comment on above: Expected: 06/12/2023, Expires: 5 Once for 1 Occurrenc es starting 06/12/2023 until 06/12/2023 Start: 06-12-2023 End: 06-11-2024 XR Knee - right 1 or 2 Views [facility] Work Phone: Comment on above: Expected: 06/12/2023, Expires: 5 Once for 1 Occurrenc es starting 06/12/2023 until 06/12/2023 Start: 06-12-2023 End: 06-11-2024 XR Tibia and Fibula - right 2 Views [facility] Work Phone: Comment on above: Expected: 06/12/2023, Expires: 5 Once for 1 Occurrenc es starting 06/12/2023 until 06/12/2023 Start: 04-11-2023 DIABETES SCREEN DIABETES SCREEN [facility] Start: 04-11-2023 Diabetes Screening Diabetes Screening [facility] Start: 03-26-2023 End: 06-25-2023 CBC panel - Blood by Automated count CBC Lab Routine Seizures (HCC) Expected: 03/26/2023, Expires: 06/25/2023 [facility] Work Phone: Comment on above: Expected: 03/26/2023, Expires: Start: 03-26-2023 End: 06-25-2023 Comprehensive metabolic 2000 panel - Serum or Plasma COMP METABOLIC PANEL Lab Routine Hypertension, essential Expected: 03/26/2023, Expires: 06/25/2023 [facility] Work Phone: Comment on above: Expected: 03/26/2023, Expires: Start: 02-17-2023 Behavioral Health Screening Behavioral Health Screening [facility] Start: 02-17-2023 Depression Assessment Depression Assessment [facility] Start: 12-18-2022 Depresssion Monitoring Depresssion Monitoring [facility] Start: 11-27-2022 End: 01-27-2023 CBC panel - Blood by Automated count CBC Lab Routine Hypertension, essential Hypothyroidism, acquired Chronic anxiety Expected: 11/27/2022, Expires: 01/27/2023 [facility] Work Phone: Comment on above: Expected: 11/27/2022, Expires: Start: 11-27-2022 End: 01-27-2023 Comprehensive metabolic 2000 panel - Serum or Plasma COMP METABOLIC PANEL Lab Routine Hypertension, essential Expected: 11/27/2022, Expires: 01/27/2023 [facility] Work Phone: Comment on above: Expected: 11/27/2022, Expires: Start: 11-27-2022 End: 01-27-2023 Lipid 1996 panel - Serum or Plasma LIPID PANEL BASIC Lab Routine Screening for lipid disorders Expected: 11/27/2022, Expires: 01/27/2023 [facility] Work Phone: Comment on above: Expected: 11/27/2022, Expires: 3 Start: 11-27-2022 End: 01-27-2023 Thyrotropin [Units/volume] in Serum or Plasma TSH BLD Lab Routine Hypothyroidism, acquired Expected: 11/27/2022, Expires: 01/27/2023 [facility] Work Phone: Comment on above: Expected: 11/27/2022, Expires: 3 Start: 10-18-2022 Covid-19 Vaccine () Covid-19 Vaccine () [facility] Start: 10-18-2022 Influenza vaccination [facility] Start: 09-26-2022 End: 11-26-2022 CBC panel - Blood by Automated count CBC Lab Routine Chronic left hip pain Chronic ulcer of right leg, 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) Expected: 09/26/2022, Expires: 11/26/2022 [facility] Work Phone: Comment on above: Expected: 09/26/2022, Expires: Start: 09-26-2022 End: 11-26-2022 Comprehensive metabolic 2000 panel - Serum or Plasma COMP METABOLIC PANEL Lab Routine Seizures (HCC) Hypertension, essential Expected: 09/26/2022, Expires: 11/26/2022 [facility] Work Phone: Comment on above: Expected: 09/26/2022, Expires: 3 Start: 09-26-2022 End: 11-26-2022 Lipid 1996 panel - Serum or Plasma LIPID PANEL BASIC Lab Routine Screening for lipid disorders Expected: 09/26/2022, Expires: 11/26/2022 [facility] Work Phone: Comment on above: Expected: 09/26/2022, Expires: 3 Start: 09-26-2022 End: 11-26-2022 Thyrotropin [Units/volume] in Serum or Plasma TSH BLD Lab Routine Hypothyroidism, acquired Expected: 09/26/2022, Expires: 11/26/2022 [facility] Work Phone: Comment on above: Expected: 09/26/2022, Expires: 3 Start: 09-17-2022 Adult depression screening assessment DEPRESSION SCREENING [facility] Start: 09-17-2022 ANNUAL PCP TEAM CHRONIC DISEASE VISIT ANNUAL PCP TEAM CHRONIC DISEASE VISIT [facility] Start: 09-17-2022 BP CONTROLLED (<130/80) BP CONTROLLED (<130/80) [facility] Start: 07-12-2022 ANNUAL PCP TEAM CHRONIC DISEASE VISIT ANNUAL PCP TEAM CHRONIC DISEASE VISIT [facility] Start: 07-03-2022 End: 07-03-2022 Patient encounter procedure 07/03/2022 Office Visit Family Medicine Isiah Quan MD [address], [place] [address] [facility] Start: 06-26-2022 ANNUAL PCP TEAM CHRONIC DISEASE VISIT ANNUAL PCP TEAM CHRONIC DISEASE VISIT [facility] Start: 06-26-2022 BP CONTROLLED (<130/80) BP CONTROLLED (<130/80) [facility] Start: 04-17-2022 End: 04-17-2022 Patient encounter procedure 04/17/2022 Office Visit Orthopedic Surgery Cass Guzman MD [address] [place] [address] [facility] Start: 04-09-2022 End: 04-09-2023 XR Hip - left 3 Views XR hip left 2 or 3 views Imaging Routine Left hip pain Expected: 04/09/2022, Expires: 04/09/2023 [facility] Work [facility]: Comment on above: Expected: 04/09/2022, Expires: Start: 04-03-2022 End: 04-03-2023 Hepatitis C virus RNA panel (viral load) in Serum or Plasma by CAPRICE with probe detection Hepatitis C viral load Lab Routine Traumatic open wound of right lower leg with infection, initial encounter MRSA infection Expected: 04/03/2022 (Approximate), Expires: 04/03/2023 [facility] Work Phone: Comment on above: Expected: 04/03/2022 (Approximate), Expi res: 04/03/2023 Start: 03-29-2022 End: 03-29-2022 Patient encounter procedure 03/29/2022 Appointment Wound Care Pacheco Boothe, [address] [place] [address] [facility] Start: 03-18-2022 End: 03-18-2022 Patient encounter procedure 03/18/2022 Office Visit Orthopedic Surgery Cass Guzamn MD [address] [facility] [address] [place] [address] [facility] [place] Start: 03-18-2022 End: 03-18-2022 Documentation procedure 03/18/2022 Documentation Orthopedic Surgery [facility] [place] Start: 03-14-2022 End: 03-14-2022 Patient encounter procedure Infect Disease - [place] Start: 03-05-2022 End: 03-05-2022 Patient encounter procedure 03/05/2022 Office Visit Infectious Diseases Jarvis Almonte MD [address] [place], [place] [id number] [facility] [place] Start: 03-01-2022 End: 03-01-2022 Patient encounter procedure 03/01/2022 Appointment Wound Care Pacheco Boothe DO [address] [place], [place] [id number] [facility] Start: 02-28-2022 SHINGRIX VACCINE (1 of 2) SHINGRIX VACCINE (1 of 2) [facility] Start: 02-28-2022 Zoster Vaccines (1 of 2) Zoster Vaccines (1 of 2) [facility] Start: 02-28-2022 [facility] Start: 02-17-2022 DEPRESSION ASSESSMENT DEPRESSION ASSESSMENT [facility] Start: 01-31-2022 PNEUMOCOCCAL (2 - PPSV23 if available, else PCV20) PNEUMOCOCCAL (2 - PPSV23 if available, else PCV20) [facility] Start: 01-31-2022 PNEUMOCOCCAL (2 - PPSV23 or PCV20) PNEUMOCOCCAL (2 - PPSV23 or PCV20) [facility] Start: 01-31-2022 Pneumococcal 0-64 years Vaccine (2 - PPSV23 or PCV20) Pneumococcal 0-64 years Vaccine (2 - PPSV23 or PCV20) [facility] Start: 01-31-2022 Pneumococcal Vaccine: Pediatrics (0 to 5 Years) and At-Risk Patients (6 to 64 Years) (2 - PPSV23 if available, else PCV20) Pneumococcal Vaccine: Pediatrics (0 to 5 Years) and At-Risk Patients (6 to 64 Years) (2 - PPSV23 if available, else PCV20) [facility] Start: 10-18-2021 End: 10-18-2021 Patient encounter procedure 10/18/2021 Appointment Vascular Lab Cass Guzman MD [address] [facility] [address] [place] [address] [facility] Start: 10-18-2021 Influenza vaccination [facility] Start: 10-15-2021 End: 10-15-2021 Patient encounter procedure 10/15/2021 Office Visit Ophthalmology Jyoti Ni MD [address] [place] [address] [facility] Start: 09-05-2021 [facility] Work Phone: Start: 08-29-2021 End: 10-29-2021 Thyrotropin [Units/volume] in Serum or Plasma TSH BLD Lab Routine Hypothyroidism, acquired Expected: 08/29/2021, Expires: 10/29/2021 [facility] Work Phone: Comment on above: Expected: 08/29/2021, Expires: Start: 05-17-2021 End: 05-17-2021 Evaluation and management of inpatient 05/17/2021 Office Visit Ophthalmology Jyoti Ni MD [address] [place], [place] [id number] [facility] Start: 03-28-2021 PNEUMOCOCCAL (2 - PPSV23 if available, else PCV20) PNEUMOCOCCAL (2 - PPSV23 if available, else PCV20) [facility] Start: 03-28-2021 PNEUMOCOCCAL (2 - PPSV23 or PCV20) PNEUMOCOCCAL (2 - PPSV23 or PCV20) [facility] Start: 03-28-2021 Pneumococcal 0-64 years Vaccine (2 of 4 - PPSV23) Pneumococcal 0-64 years Vaccine (2 of 4 - PPSV23) [facility] Start: 03-28-2021 Pneumococcal vaccination [facility] Start: 03-28-2021 Pneumococcal Vaccine: 50+ (2 of 2 - PPSV23) Pneumococcal Vaccine: 50+ (2 of 2 - PPSV23) [facility] Start: 03-28-2021 Pneumococcal Vaccine: Pediatrics (0 to 5 Years) and At-Risk Patients (6 to 64 Years) (2 of 2 - PPSV23 or PCV20) Pneumococcal Vaccine: Pediatrics (0 to 5 Years) and At-Risk Patients (6 to 64 Years) (2 of 2 - PPSV23 or PCV20) [facility] Start: 03-28-2021 [facility] Start: 02-28-2021 Meningococcal B vaccine (2 of 4 - Increased Risk Bexsero 2-dose series) Meningococcal B vaccine (2 of 4 - Increased Risk Bexsero 2-dose series) [facility] Start: 02-28-2021 Meningococcal B Vaccine (2 of 5 - Increased Risk Bexsero 3-dose series) Meningococcal B Vaccine (2 of 5 - Increased Risk Bexsero 3-dose series) [facility] Start: 02-28-2021 Meningococcal B Vaccine: Consider Based On Risk (2 of 4 - Increased Risk Bexsero 2-dose series) Meningococcal B Vaccine: Consider Based On Risk (2 of 4 - Increased Risk Bexsero 2-dose series) [facility] Start: 02-28-2021 MENINGOCOCCAL B: Consider based on risk (2 of 4 - Increased Risk Bexsero 2-dose series) MENINGOCOCCAL B: Consider based on risk (2 of 4 - Increased Risk Bexsero 2-dose series) [facility] Start: 02-17-2021 DEPRESSION ASSESSMENT DEPRESSION ASSESSMENT [facility] Start: 12-19-2020 DTaP/Tdap/Td vaccine (1 - Tdap) DTaP/Tdap/Td vaccine (1 - Tdap) [facility] Start: 12-19-2020 DTaP/Tdap/Td Vaccines (1 - Tdap) DTaP/Tdap/Td Vaccines (1 - Tdap) [facility] Start: 12-19-2020 Urine microalbumin profile [facility] Start: 12-19-2020 [facility] Start: 12-10-2020 HEPATITIS A (3 of 3 - Hep A Twinrix risk 3-dose series) HEPATITIS A (3 of 3 - Hep A Twinrix risk 3-dose series) [facility] Start: 12-10-2020 Hepatitis A vaccine (3 of 3 - Hep A Twinrix risk 3-dose series) Hepatitis A vaccine (3 of 3 - Hep A Twinrix risk 3-dose series) [facility] Start: 12-10-2020 Hepatitis A Vaccines (3 of 3 - Hep A Twinrix risk 3-dose series) Hepatitis A Vaccines (3 of 3 - Hep A Twinrix risk 3-dose series) [facility] Start: 12-10-2020 HEPATITIS B (3 of 3 - Hep B Twinrix risk 3-dose series) [facility] Start: 12-10-2020 Hepatitis B Vaccine (3 of 3 - Hep B Twinrix 3-dose series) Hepatitis B Vaccine (3 of 3 - Hep B Twinrix 3-dose series) [facility] Start: 12-10-2020 Hepatitis B vaccine (3 of 3 - Hep B Twinrix risk 3-dose series) Hepatitis B vaccine (3 of 3 - Hep B Twinrix risk 3-dose series) [facility] Start: 12-10-2020 Hepatitis B Vaccines (3 of 3 - Hep B Twinrix 3-dose series) Hepatitis B Vaccines (3 of 3 - Hep B Twinrix 3-dose series) [facility] Start: 12-10-2020 [facility] Start: 10-18-2020 Influenza vaccination [facility] (#[facility] Start: 10-18-2020 [facility] Start: 10-05-2020 Adult depression screening assessment DEPRESSION SCREENING [facility] Start: 06-05-2019 PAP TESTING PAP TESTING [facility] Start: 06-05-2019 Screening for malignant neoplasm of cervix Pap Testing [facility] Start: 10-18-2018 Influenza vaccination Flu vaccine (#1) [place] Start: 06-04-2017 Screening for malignant neoplasm of cervix Cervical Cancer Screening [facility] Start: 02-28-2017 COLOGUARD (FIT-DNA) COLOGUARD (FIT-DNA) [facility] Start: 02-28-2017 Colonoscopy COLONOSCOPY [facility] Start: 02-28-2017 COLORECTAL CANCER SCREENING COLORECTAL CANCER SCREENING [facility] Start: 02-28-[address] COLONOGRAPHY [facility] Start: 02-28-2017 FECAL OCCULT BLOOD FECAL OCCULT BLOOD [facility] Start: 02-28-2017 Screening for malignant neoplasm of colon [facility] Start: 02-28-2017 SIGMOIDOSCOPY SIGMOIDOSCOPY [facility] Start: 2012 Lipid panel [facility] Start: 2012 Lipid screen Lipid screen [place] Start: 2012 Mammography [facility] Start: 2012 Screening for malignant neoplasm of breast [facility] Start: 2012 [facility] Start: 03-03-2009 MMR Vaccines (1 of 1 - Standard series) MMR Vaccines (1 of 1 - Standard series) [facility] Start: 02-28-2007 Diabetes screen Diabetes screen [facility] Start: 02-28-2002 HPV TESTING HPV TESTING [facility] Start: 02-28-2002 Screening for malignant neoplasm of cervix [facility] Start: 02-28-1993 Cervical cancer screen Cervical cancer screen [place], [place] Start: 02-28-1993 Screening for malignant neoplasm of cervix [facility] Start: 02-28-1991 Hepatitis B vaccine (1 of 3 - Risk 3-dose series) Hepatitis B vaccine (1 of 3 - Risk 3-dose series) [place], [place] Start: 02-28-1991 ONE PNEUMOVAX PRIOR TO AGE 65 ONE PNEUMOVAX PRIOR TO AGE 65 [facility] Start: 02-28-1991 SHINGRIX VACCINE (1 of 2) SHINGRIX VACCINE (1 of 2) [facility] Start: 02-28-1991 Urine microalbumin profile DTAP,TDAP,TD (1 - Tdap) [facility] Start: 02-28-1990 BP CONTROLLED (<130/80) BP CONTROLLED (<130/80) [facility] Start: 02-28-1990 Depression Screening Depression Screening [facility] Start: 02-28-1990 Diabetes mellitus screening [facility] Start: 02-28-1987 HIV screen HIV screen [place], [place] Start: 02-28-1987 HIV screening [facility] Start: 1984 Depression Monitoring Depression Monitoring [facility] Start: 1984 [facility] Start: 02-28-1983 DTaP/Tdap/Td vaccine (1 - Tdap) DTaP/Tdap/Td vaccine (1 - Tdap) [place] Start: 02-28-1982 MENINGOCOCCAL B: Consider based on risk (1 of 4 - Increased Risk Bexsero 2-dose series) MENINGOCOCCAL B: Consider based on risk (1 of 4 - Increased Risk Bexsero 2-dose series) [facility] Start: 02-28-1978 Pneumococcal 0-64 years Vaccine (1 of 1 - PPSV23) Pneumococcal 0-64 years Vaccine (1 of 1 - PPSV23) [place], [place] Start: 02-28-1978 [facility] Start: 02-28-1977 COVID-19 VACCINE (#1) COVID-19 VACCINE (#1) [facility] Start: 02-28-1977 COVID-19 Vaccine (1) COVID-19 Vaccine (1) [facility] Start: 02-28-1974 MENINGOCOCCAL CONJUGATE (1 - Risk 2-dose series) MENINGOCOCCAL CONJUGATE (1 - Risk 2-dose series) [facility] Start: 02-28-1974 Meningococcal Conjugate Vaccine (1 - Risk 2-dose series) Meningococcal Conjugate Vaccine (1 - Risk 2-dose series) [facility] Start: 02-28-1973 Hepatitis A vaccine (1 of 2 - Risk 2-dose series) [place] Start: 1972 Meningococcal (ACWY) vaccine (1 - Risk start 2-23 months series) Meningococcal (ACWY) vaccine (1 - Risk start 2-23 months series) [facility] Start: 1972 MENINGOCOCCAL CONJUGATE (1 - Risk start 2-23 months series) MENINGOCOCCAL CONJUGATE (1 - Risk start 2-23 months series) [facility] Start: 1972 COVID-19 VACCINE (#1) COVID-19 VACCINE (#1) [facility] Start: 1972 Hepatitis C screening [facility] Start: 1972 HIV screening HIV Screening [facility] Start: 1972 Lipid panel [facility] Start: 1972 Screening for malignant neoplasm of colon [facility] Start: 1972 Yearly Adult Physical Yearly Adult Physical [facility] Start: 1972 [facility] Acapella [facility] Work Phone: End: 12-24-2020 [employer]ain [facility] Work Phone: [employer] Stain [facility] Work Phone: Bacteria identified in Unspecified specimen by Culture [facility] Work Phone: Bacteria identified in Wound by Culture WOUND CULTURE AND GRAM STAIN Microbiology Routine Leg wound, right, initial encounter Ordered: 06/12/2021 [facility] Work Phone: Comment on above: Ordered: 06/12/2021 Basic metabolic 2000 panel - Serum or Plasma [facility] Work Phone: End: 01-15-2025 Basic metabolic 2000 panel - Serum or Plasma Basic metabolic panel Lab Routine Tibia and fibula open fracture, right, sequela Once a week for 8 Occurrences starting 01/16/2024 until 01/15/2025 [facility] Work Phone: Comment on above: Once a week for 8 Occurrences starting 1 03/17/2023 until 01/15/2025 Basic metabolic 2000 panel - Serum or Plasma Basic metabolic panel Lab Routine Daily (Lab) until discontinued starting 03/13/2024, 6 completed [facility] Work Phone: Comment on above: Daily (Lab) until discontinued starting 03/13/2024, 6 completed End: 04-02-2024 Basic metabolic 2000 panel - Serum or Plasma Basic metabolic panel Lab Routine Morning draw (Lab) for 3 Occurrences starting 03/31/2024 until 04/02/2024, 2 completed [facility] Work Phone: Comment on above: Morning draw (Lab) for 3 Occurrences sta rting 03/31/2024 until 04/02/2024, 2 completed End: 01-15-2025 C reactive protein [Mass/volume] in Serum or Plasma C-Reactive Protein Lab Routine Tibia and fibula open fracture, right, sequela Once a week for 8 Occurrences starting 01/16/2024 until 01/15/2025 [facility] Work Phone: Comment on above: Once a week for 8 Occurrences starting 03/17/2023 until 01/15/2025 End: 03-31-2025 C reactive protein [Mass/volume] in Serum or Plasma C-Reactive Protein Lab Routine Chronic multifocal osteomyelitis of right tibia (Multi) Every 2 weeks for 5 Occurrences starting 03/31/2024 until 03/31/2025 [facility] Work Phone: Comment on above: Every 2 weeks for 5 Occurrences starting 03/31/2024 until 03/31/2025 End: 05-10-2025 C reactive protein [Mass/volume] in Serum or Plasma [facility] Work Phone: End: 05-12-2025 C reactive protein [Mass/volume] in Serum or Plasma [facility] Work Phone: CBC auto differential CBC auto d ifferential Lab Routine Daily until discontinued starting 01/06/2019, 5 completed [place], [place] Comment on above: Daily until discontinued starting 2018, 5 completed CBC panel - Blood by Automated count CBC Lab Today Hypertension, essential Ordered: 06/26/2021 [facility] Work Phone: Comment on above: Ordered: 06/26/2021 End: 04-02-2024 CBC panel - Blood by Automated count CBC Lab Routine Morning draw (Lab) for 3 Occurrences starting 03/31/2024 until 04/02/2024, 2 completed [facility] Service Area Work Phone: Comment on above: Morning draw (Lab) for 3 Occurrences sta rting 03/31/2024 until 04/02/2024, 2 completed End: 03-31-2025 CBC panel - Blood by Automated count CBC Lab Routine Chronic multifocal osteomyelitis of right tibia (Multi) Every 2 weeks for 5 Occurrences starting 03/31/2024 until 03/31/2025 [facility] Service Area Work Phone: Comment on above: Every 2 weeks for 5 Occurrences starting 03/31/2024 until 03/31/2025 End: 05-25-2024 CBC panel - Blood by Automated count [facility] Work Phone: CBC W Auto Different ial panel - Blood [facility] Work Phone: End: 01-15-2025 CBC W Auto Differential panel - Blood CBC and Auto Differential Lab Routine Tibia and fibula open fracture, right, sequela Once a week for 8 Occurrences starting 01/16/2024 until 01/15/2025 [facility] Work Phone: Comment on above: Once a week for 8 Occurrences starting 1 03/17/2023 until 01/15/2025 End: 05-10-2025 CBC W Auto Differential panel - Blood [facility] Work Phone: End: 05-12-2025 CBC W Auto Differential panel - Blood [facility] Work Phone: Chest physiotherapy [facility] Work Phone: Comprehensive metabo lic 2000 panel Comprehensive Metabolic Panel Lab Routine Daily until discontinued starting 01/07/2019, 4 completed [employer], [place] Comment on above: Daily until discontinued starting 2018, 4 completed End: 03-31-2025 Comprehensive metabolic 2000 panel - Serum or Plasma Comprehensive metabolic panel Lab Routine Chronic multifocal osteomyelitis of right tibia (Multi) Every 2 weeks for 5 Occurrences starting 03/31/2024 until 03/31/2025 [facility] Work Phone: Comment on above: Every 2 weeks for 5 Occurrences starting 03/31/2024 until 03/31/2025 End: 05-10-2025 Comprehensive metabolic 2000 panel - Serum or Plasma [facility] Work Phone: End: 05-24-2024 Comprehensive metabolic 2000 panel - Serum or Plasma [facility] Work Phone: End: 05-12-2025 Comprehensive metabolic 2000 panel - Serum or Plasma [facility] Work Phone: End: 01-09-2024 Continuous Pulse oximetry, In Phase 1 Continuous Pulse oximetry, In Phase 1 Respiratory Care Routine Continuous until discontinued starting 01/09/2024 [facility] Work Phone: Comment on above: Continuous until discontinued starting 1 03/10/2023 End: 05-10-2025 Creatine kinase [Enzymatic activity/volume] in Serum or Plasma [facility] Work Phone: End: 05-12-2025 Creatine kinase [Enzymatic activity/volume] in Serum or Plasma [facility] Work Phone: End: 07-07-2023 CT Hip - left WO contrast [facility] Service [facility] Work Phone: Comment on above: Once for 1 Occurrences starting 07/07/19 until 07/07/2023 End: 12-15-2023 CT Knee - right WO contrast [facility] Service Area Work Phone: Comment on above: Once for 1 Occurrences starting 12/15/19 until 12/15/2023 End: 12-15-2023 CT Lower leg - right WO contrast [facility] Service Area Work Phone: Comment on above: Once for 1 Occurrences starting 12/15/19 24 until 12/15/2023 Culture with Smear, Acid Fast Bacillius [facility] Work Phone: Culture, Blood 2 [facility] Work Phone: Culture, Respiratory [facility] Work Phone: End: 06-24-2025 DBT Breast - bilateral screening IVÁN SCREENING W DANA Radiology Routine Encounter for screening mammogram for breast cancer 1 Occurrences starting 05/25/2024 until 06/24/2025 [facility] Work Phone: Comment on above: 1 Occurrences starting 05/25/2024 until 06/24/2025 Dressing Order: Lucio agen Ag; Every other day; 4x4 gauze; Kerlex, Silk tape; Single layer tubigrip Dressing Order: Collagen Ag; Every other day; 4x4 gauze; Kerlex, Silk tape; Single layer tubigrip Wound Ostomy Routine Ordered: 03/15/2022 [facility] Work Phone: Comment on above: Ordered: 03/15/2022 ECG 12 Lead ECG 12 Lead ECG STAT 01/10/2024 12:25 PM EST [facility] Work Phone: ECG COMPLETE ECG COMPLETE ECG Routine Essential hypertension Newly recognized heart murmur Ordered: 11/18/2023 [facility] Comment on above: Ordered: 11/18/2023 End: 11-17-2024 Echocardiography ECHO Cardiology Routine Essential hypertension Newly recognized heart murmur 1 Occurrences starting 11/18/2023 until 11/17/2024 [facility] Comment on above: 1 Occurrences starting 11/18/2023 until 11/17/2024 Electrocardiogram, 12-lead PRN ACS symptoms Electrocardiogram, 12-lead PRN ACS symptoms ECG Routine As needed until discontinued starting 01/09/2024 [facility] Work Phone: Comment on above: As needed until discontinued starting Electrocardiogram, 12-lead PRN ACS symptoms [facility] Work Phone: Comment on above: As needed until discontinued starting Electrocardiogram, 12-lead PRN ACS symptoms Electrocardiogram, 12-lead PRN ACS symptoms ECG Routine As needed until discontinued starting 03/25/2024 [facility] Work Phone: Comment on above: As needed until discontinued starting Electrocardiogram, 12-lead PRN ACS symptoms [facility] Work Phone: Electrocardiogram, 12-lead PRN ACS symptoms [facility] Work Phone: End: 12-18-2020 [place] [...] for 1 Occurrences starting 03/25/2024 until 03/25/2024 [facility] [facility] Work Phone: Comment on above: Once for 1 Occurrences starting 03/25/19 until 03/25/2024 End: 03-25-2024 Free Flap Reconstruction Site Free Flap Reconstruction Site Wound Ostomy Routine Once for 1 Occurrences starting 03/25/2024 until 03/25/2024 [facility] Service Area Work Phone: Comment on above: Once for 1 Occurrences starting 03/25/19 until 03/25/2024 Fungus identified in Unspecified specimen by Culture [facility] Work Phone: Fungus identified in Unspecified specimen by Culture [facility] Work Phone: Fungus identified in Unspecified specimen by Culture Fungal Culture/Smear Microbiology Routine 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, unspecified fracture morphology, subsequent encounter 03/25/2024 9:34 AM EST [facility] Work Phone: Fungus identified in Unspecified specimen by Culture [facility] Area Work Phone: End: 12-19-2020 Glucose [Mass/volume] in Serum or Plasma [facility] Work Phone: High Frequency Chest Wall Oscillation (HFCWO) [facility] Work Phone: Incentive spirometry Incentive s pirometry Respiratory Care Routine Every 2hr while awake until discontinued [facility] Comment on above: Every 2hr while awake until discontinued starting 01/05/2019 End: 01-09-2024 Incentive spirometry Instruct Incentive spirometry Instruct Respiratory Care Routine Once for 1 Occurrences starting 01/09/2024 until 01/09/2024 [facility] Work Phone: Comment on above: Once for 1 Occurrences starting 01/09/20 24 until 01/09/2024 End: 03-11-2024 Incentive spirometry Instruct Incentive spirometry Instruct Respiratory Care Routine Once for 1 Occurrences starting 03/11/2024 until 03/11/2024 [facility] Area Work Phone: Comment on above: Once for 1 Occurrences starting 03/11/19 25 until 03/11/2024 End: 04-26-2024 Incentive spirometry Instruct [facility] Work Phone: End: 05-05-2024 Incentive spirometry Instruct [facility] Work Phone: Initiate Oxygen Ther apy Protocol Initiate Oxygen Therapy Protocol Respiratory Care Routine Daily until discontinued starting 01/05/2019 [facility] Comment on above: Daily until discontinued starting 2018 End: 08-16-2023 IVÁN SCREENING IVÁN SCREENING Radiology Routine Encounter for screening mammogram for breast cancer 1 Occurrences starting 07/17/2022 until 08/16/2023 [facility] Work Phone: Comment on above: 1 Occurrences starting 07/17/2022 until 08/16/2023 Mechanical Ventilati on with default initial settings [facility] Work Phone: End: 04-18-2021 Medication Assisted Treatment Panel Medication Assisted Treatment Panel Lab Add-On One Time for 1 Occurrences starting 04/18/2021 until 04/18/2021 [facility] Work Phone: Comment on above: One Time for 1 Occurrences starting 03/2021 until 04/18/2021 End: 07-24-2024 MG Breast Screening IVÁN SCREENING Radiology Routine Encounter for screening mammogram for breast cancer 1 Occurrences starting 06/25/2023 until 07/24/2024 [facility] Work Phone: Comment on above: 1 Occurrences starting 06/25/2023 until 07/24/2024 End: 12-28-2020 Microscopic examination of blood, culture [facility] Work Phone: Mycobacterium sp identified in Unspecified specimen by Organism specific culture AFB Culture/Smear Microbiology Routine 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 AUREUS PBP2A TEST FOR S. AUREUS Lab Routine Once for 1 Occurrences starting 01/05/2019 until 01/05/2019 [facility] Comment on above: Once for 1 Occurrences starting 01/06/20 19 until 01/05/2019 PBP2A TEST FOR S. AUREUS PBP2A T EST FOR S. AUREUS Lab Routine 01/05/2019 4:30 PM EST [facility] End: 05-04-2024 Prepare RBC: 1 [facility] Work Phone: Procalcitonin [facility] Work Phone: RADIOLOGY REPORT [facility] Work Phone: End: 01-09-2024 Renal function 2000 panel - Serum or Plasma Renal Function Panel Lab STAT STAT (Lab) for 1 Occurrences starting 01/09/2024 until 01/09/2024 [facility] Service Area Work Phone: Comment on above: STAT (Lab) for 1 Occurrences starting until 01/09/2024 RT Communication Order [facility] Work Phone: RT Communication Order [facility] Work Phone: RT Communication Order [facility] Work Phone: End: 09-14-2022 Screening mammography bi 2-view breast inc cad IVÁN SCREENING Radiology Routine Encounter for screening mammogram for breast cancer 1 Occurrences starting 08/15/2021 until 09/14/2022 [facility] Work Phone: Comment on above: 1 Occurrences starting 08/15/2021 until 09/14/2022 Spirometry panel [facility] Work Phone: End: 01-28-2021 Spirometry panel [facility] Work Phone: Spontaneous Breathin g Trial (SBT) [facility] Work Phone: Surgical pathology study [facility] Service Area Work Phone: Thyrotropin [Units/volume] in Serum or Plasma TSH BLD Lab Today Hypothyroidism, acquired Ordered: 06/26/2021 [facility] Work Phone: Comment on above: Ordered: 06/26/2021 End: 01-05-2019 Tissue Homogenization Tissue Homogenization Lab Routine Once for 1 Occurrences starting 01/05/2019 until 01/05/2019 [facility] Comment on above: Once for 1 Occurrences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 [address] [place] [address] PCP - General Family Medicine 06/05/15 Yactayo, Alicia, TELEMETRY TECH Quilting Supervisor 10/17/22 Pulp Bleacher Relationship Specialty Start Date End Date Bijan Elmore MD [address] [place] [address] PCP - General Family Medicine 06/05/15 Yactayo, Alicia, TELEMETRY TECH Quilting Supervisor 10/17/22 Team Status: Active Member Role Status Dates Dr. Francisco Elmore MD Family Provider Active Dr. Francisco Elmore MD Primary Care Provider Active Team Status: Inactive Member Role Status Dates Dr. Francisco Elmore MD Primary Care Provider Active Dr. Abhi Quan MD Attending Provider, Referring P [email or web address] Active Pulp Bleacher Relationship Specialty Start Date End Date Bijan Elmore MD [address] [place] [address] PCP - General Family Medicine 06/05/15 Yactayo, Alicia, TELEMETRY TECH Quilting Supervisor 10/17/22 Pulp Bleacher Relationship Specialty Start Date End Date Bijan Elmore MD [address] [place] [address] PCP - General Family Medicine 06/05/15 Yactayo, Alicia, TELEMETRY TECH Quilting Supervisor 10/17/22 Pulp Bleacher Relationship Specialty Start Date End Date Bijan Elmore MD [address] [place] [address] PCP - General Family Medicine 06/05/15 Yactayo, Alicia, TELEMETRY TECH Quilting Supervisor 10/17/22 Team Status: Active Member Role Status Dates Dr. Francisco Elmore MD Primary Care Provider Active HARMAN Mills Attending Provider, Other Provider A ctive Dr. Abhi Quan MD Referring Provider Active Team Status: Inactive Member Role Status Dates Dr. Francisco Elmore MD Primary Care Provider Active HARMAN Mills Attending Provider Active Dr. Abhi Quan MD Referring Provider Active Pulp Bleacher Relationship Specialty Start Date End Date Bijan Elmore MD [address] [place] [address] PCP - General Family Medicine 06/05/15 Yactayo, Alicia, TELEMETRY TECH Quilting Supervisor 10/17/22 Pulp Bleacher Relationship Specialty Start Date End Date Bijan Elmore MD [address] [place] [address] PCP - General Family Medicine 06/05/15 Pulp Bleacher Relationship Specialty Start Date End Date Bijan Elmore MD [address] [place] [address] PCP - General Family Medicine 06/05/15 Pulp Bleacher Relationship Specialty Start Date End Date Bijan Elmore MD [address] [place] [address] PCP - General Family Medicine 06/05/15 Pulp Bleacher Relationship Specialty Start Date End Date Bijan Elmore MD [address] [place] [address] PCP - General Family Medicine 06/05/15 Pulp Bleacher Relationship Specialty Start Date End Date Bijan Elmore MD [address] [place] [address] PCP - General Family Medicine 06/05/15 Pulp Bleacher Relationship Specialty Start Date End Date Bijan Elmore MD [address] [place] [address] PCP - General Family Medicine 06/05/15 Pulp Bleacher Relationship Specialty Start Date End Date Bijan Elmore MD [address] [place] [address] PCP - General Family Medicine 06/05/15 Pulp Bleacher Relationship Specialty Start Date End Date Bijan Elmore MD [address] [place] [address] PCP - General Family Medicine 06/05/15 Pulp Bleacher Relationship Specialty Start Date End Date Bijan Elmore MD [address] [place] [address] PCP - General Family Medicine 06/05/15 Pulp Bleacher Relationship Specialty Start Date End Date Bijan Elmore MD [address] [facility], [place] [address] PCP - General Family Medicine 06/05/15 Pulp Bleacher Relationship Specialty Start Date End Date Bijan Elmore MD [address] [facility], [place] [address] PCP - General Family Medicine 06/05/15 Pulp Bleacher Relationship Specialty Start Date End Date Bijan Elmore MD [address] [place] [address] PCP - General Family Medicine 06/05/15 Pulp Bleacher Relationship Specialty Start Date End Date Generic Provider, [place] [address] PCP - General Celery Tier 08/22/23 Pulp Bleacher Relationship Specialty Start Date End Date Bijan Elmore MD [address] [place] [address] PCP - General Family Medicine 06/05/15 Pulp Bleacher Relationship Specialty Start Date End Date Bijan Elmore MD [address] [place] [address] PCP - General Family Medicine 06/05/15 Pulp Bleacher Relationship Specialty Start Date End Date Generic Provider, No [place] [address] PCP - General Celery Tier 08/22/23 Pulp Bleacher Relationship Specialty Start Date End Date Bijan Elmore MD [address] [place] [address] PCP - General Family Medicine 06/05/15 Pulp Bleacher Relationship Specialty Start Date End Date Bijan Elmore MD [address] [place] [address] PCP - General Family Medicine 06/05/15 Pulp Bleacher Relationship Specialty Start Date End Date Bijan Elmore MD [address] [place] [address] PCP - General Family Medicine 12/30/23 Pulp Bleacher Relationship Specialty Start Date End Date Bijan Elmore MD [address] [place] [address] PCP - General Family Medicine 06/05/15 Cheryl Araujo, RECONCILIATION COORDINATOR.AUTO BRAKE MECHANIC [address] [facility] [place] [address] Electric Appliance Installer Internal Medicine 01/25/24 Pulp Bleacher Relationship Specialty Start Date End Date Bijan Elmore MD [address] [place] [address] PCP - General Family Medicine 06/05/15 Cheryl Araujo, RECONCILIATION COORDINATOR.AUTO BRAKE MECHANIC [address] [facility] [place] [address] Electric Appliance Installer Internal Medicine 01/25/24 Pulp Bleacher Relationship Specialty Start Date End Date Bijan Elmore MD [address] [place] [address] PCP - General Family Medicine 06/05/15 Cheryl Araujo RECONCILIATION COORDINATOR.AUTO BRAKE MECHANIC [address] [place] [address] [address] [place], [place] [address] Electric Appliance Installer Internal Medicine 01/25/24 Pulp Bleacher Relationship Specialty Start Date End Date Generic Provider, No Assigned Pcp, [place] [address] PCP - General Celery Tier 08/22/23 Pulp Bleacher Relationship Specialty Start Date End Date Bijan Elmore MD [address] [place], [place] [address] PCP - General Family Medicine 06/05/15 Cheryl Araujo APRN.AUTO BRAKE MECHANIC [address] [place] [address] [address] [place], [place] [address] Electric Appliance Installer Internal Medicine 01/25/24 Pulp Bleacher Relationship Specialty Start Date End Date Bijan Elmore [address] [place] [address] PCP - General 02/18/20 Pulp Bleacher Relationship Specialty Start Date End Date Bijan Elmore [address] [place] [address] PCP - General 02/18/20 Pulp Bleacher Relationship Specialty Start Date End Date Bijan Elmore [address] [place] [address] PCP - General 02/18/20 Pulp Bleacher Relationship Specialty Start Date End Date Bijan Elmore [address] [place] [address] PCP - General 02/18/20 Pulp Bleacher Relationship Specialty Start Date End Date Bijan Elmroe [address] [place] [address] PCP - General 02/18/20 Pulp Bleacher Relationship Specialty Start Date End Date Bijan Elmore [address] [place] [address] PCP - General 02/18/20 Pulp Bleacher Relationship Specialty Start Date End Date Bijan Elmore [address] [place] [address] PCP - General 02/18/20 Pulp Bleacher Relationship Specialty Start Date End Date Bijan Elmore [address] [place] [address] PCP - General 02/18/20 Pulp Bleacher Relationship Specialty Start Date End Date Bijan Elmore 1 [place] [address] PCP - General 02/18/20 Pulp Bleacher Relationship Specialty Start Date End Date Bijan Elmore MD [address] [place] [address] PCP - General Family Medicine 12/30/23 Pulp Bleacher Relationship Specialty Start Date End Date Bijan Elmore MD [address] [place] [address] PCP - General Family Medicine 06/05/15 Cheryl Araujo APRN.AUTO BRAKE MECHANIC [address] [facility] [address] [place], [place] [address] Electric Appliance Installer Internal Medicine 01/25/24 Pulp Bleacher Relationship Specialty Start Date End Date Bijan Elmore MD [address] [place], [place] [address]01 PCP - General Family Medicine 06/05/15 Cheryl Araujo APRN.AUTO BRAKE MECHANIC [address] [facility] [address] [place] [address] Electric Appliance Installer Internal Medicine 01/25/24 Pulp Bleacher Relationship Specialty Start Date End Date Bijan Elmore MD [address] [place], [place] [address] PCP - General Family Medicine 06/05/15 Cheryl Araujo, JADA.AUTO BRAKE MECHANIC [address] [facility] [address] [place] [address] Electric Appliance Installer Internal Medicine 01/25/24 Pulp Bleacher Relationship Specialty Start Date End Date Bijan Elmore MD [address] [place], [place] 126611 PCP - General Family Medicine 12/30/23 Pulp Bleacher Relationship Specialty Start Date End Date Bijan Elmore MD [address] [place], [place] [address]284[address] PCP - General Family Medicine 06/05/15 Cheryl Araujo, RECONCILIATION COORDINATOR.AUTO BRAKE MECHANIC [address] [facility] [address] [place] [address] Electric Appliance Installer Internal Medicine 01/25/24 Pulp Bleacher Relationship Specialty Start Date End Date Bijan Elmore MD [address] [place], [place] [address]33881 PCP - General Family Medicine 12/30/23 Pulp Bleacher Relationship Specialty Start Date End Date Bijan Elmore MD [address] [place], [place] [address] PCP - General Family Medicine 12/30/23 Team Status: Active Member Role Status Dates Dr. Francisco Elmore MD Primary Care Provider Active Team Status: Inactive Member Role Status Dates Dr. Francisco Elmore MD Primary Care Provider Active Start: April 25, 2024 End: April 25, 2024 Dr. Pan Abarca MD Emergency Provider Active Start: April 25, 2024 End: April 25, 2024 Pulp Bleacher Relationship Specialty Start Date End Date Bijan Elmore MD [address] [place] [address] PCP - General Family Medicine 06/05/15 Cheryl Araujo APRN.AUTO BRAKE MECHANIC [address] [facility] [place] [address] Electric Appliance Installer Internal Medicine 01/25/24 Pulp Bleacher Relationship Specialty Start Date End Date Bijan Elmore MD [address] [place] [address] PCP - General Family Medicine 06/05/15 Cheryl Araujo APRN.AUTO BRAKE MECHANIC [address] [facility] [place] [address] Electric Appliance Installer Internal Medicine 01/25/24 Source Comments (unrecognize d section and content) In the event this informatio n is protected by the Federal Confidentiality of Alcohol and Drug Abuse Patient Records regulations: The Federal rules restrict any use of the information to criminally investigate or prosecute any alcohol or drug abuse patient.[facility] Hospital[facility] the event this information is protected by the Federal Confidentiality of Alcohol and Drug Abuse Patient Records regulations: The Federal rules restrict any use of the information to criminally investigate or prosecute any alcohol or drug abuse patient.[facility] HospitalIn the event this information is protected by the Federal Confidentiality of Alcohol and Drug Abuse Patient Records regulations: The Federal rules restrict any use of the information to criminally investigate or prosecute any alcohol or drug abuse patient.[facility] HospitalIn the event this information is protected by the Federal Confidentiality of Alcohol and Drug Abuse Patient Records regulations: The Federal rules restrict any use of the information to criminally investigate or prosecute any alcohol or drug abuse patient.[facility] HospitalIn the event this information is protected by the Federal Confidentiality of Alcohol and Drug Abuse Patient Records regulations: The Federal rules restrict any use of the information to criminally investigate or prosecute any alcohol or drug abuse patient.[facility] HospitalIn the event this information is protected by the Federal Confidentiality of Alcohol and Drug Abuse Patient Records regulations: The Federal rules restrict any use of the information to criminally investigate or prosecute any alcohol or drug abuse patient.[facility] HospitalIn the event this information is protected by the Federal Confidentiality of Alcohol and Drug Abuse Patient Records regulations: The Federal rules restrict any use of the information to criminally investigate or prosecute any alcohol or drug abuse patient.[facility] HospitalIn the event this information is protected by the Federal Confidentiality of Alcohol and Drug Abuse Patient Records regulations: The Federal rules restrict any use of the information to criminally investigate or prosecute any alcohol or drug abuse patient.[facility] HospitalIn the event this information is protected by the Federal Confidentiality of Alcohol and Drug Abuse Patient Records regulations: The Federal rules restrict any use of the information to criminally investigate or prosecute any alcohol or drug abuse patient.[facility] HospitalIn the event this information is protected by the Federal Confidentiality of Alcohol and Drug Abuse Patient Records regulations: The Federal rules restrict any use of the information to criminally investigate or prosecute any alcohol or drug abuse patient.[facility] HospitalIn the event this information is protected by the Federal Confidentiality of Alcohol and Drug Abuse Patient Records regulations: The Federal rules restrict any use of the information to criminally investigate or prosecute any alcohol or drug abuse patient.[facility] HospitalIn the event this information is protected by the Federal Confidentiality of Alcohol and Drug Abuse Patient Records regulations: The Federal rules restrict any use of the information to criminally investigate or prosecute any alcohol or drug abuse patient.[facility] HospitalIn the event this information is protected by the Federal Confidentiality of Alcohol and Drug Abuse Patient Records regulations: The Federal rules restrict any use of the information to criminally investigate or prosecute any alcohol or drug abuse patient.[facility] HospitalIn the event this information is protected by the Federal Confidentiality of Alcohol and Drug Abuse Patient Records regulations: The Federal rules restrict any use of the information to criminally investigate or prosecute any alcohol or drug abuse patient.[facility] HospitalIn the event this information is protected by the Federal Confidentiality of Alcohol and Drug Abuse Patient Records regulations: The Federal rules restrict any use of the information to criminally investigate or prosecute any alcohol or drug abuse patient.[facility] HospitalIn the event this information is protected by the Federal Confidentiality of Alcohol and Drug Abuse Patient Records regulations: The Federal rules restrict any use of the information to criminally investigate or prosecute any alcohol or drug abuse patient.[facility] HospitalIn the event this information is protected by the Federal Confidentiality of Alcohol and Drug Abuse Patient Records regulations: The Federal rules restrict any use of the information to criminally investigate or prosecute any alcohol or drug abuse patient.[facility] HospitalIn the event this information is protected by the Federal Confidentiality of Alcohol and Drug Abuse Patient Records regulations: The Federal rules restrict any use of the information to criminally investigate or prosecute any alcohol or drug abuse patient.[facility] HospitalIn the event this information is protected by the Federal Confidentiality of Alcohol and Drug Abuse Patient Records regulations: The Federal rules restrict any use of the information to criminally investigate or prosecute any alcohol or drug abuse patient.[facility] HospitalIn the event this information is protected by the Federal Confidentiality of Alcohol and Drug Abuse Patient Records regulations: The Federal rules restrict any use of the information to criminally investigate or prosecute any alcohol or drug abuse patient.[facility] HospitalIn the event this information is protected by the Federal Confidentiality of Alcohol and Drug Abuse Patient Records regulations: The Federal rules restrict any use of the information to criminally investigate or prosecute any alcohol or drug abuse patient.[facility] HospitalIn the event this information is protected by the Federal Confidentiality of Alcohol and Drug Abuse Patient Records regulations: The Federal rules restrict any use of the information to criminally investigate or prosecute any alcohol or drug abuse patient.[facility] HospitalIn the event this information is protected by the Federal Confidentiality of Alcohol and Drug Abuse Patient Records regulations: The Federal rules restrict any use of the information to criminally investigate or prosecute any alcohol or drug abuse patient.[facility] HospitalIn the event this information is protected by the Federal Confidentiality of Alcohol and Drug Abuse Patient Records regulations: The Federal rules restrict any use of the information to criminally investigate or prosecute any alcohol or drug abuse patient.[facility] HospitalIn the event this information is protected by the Federal Confidentiality of Alcohol and Drug Abuse Patient Records regulations: The Federal rules restrict any use of the information to criminally investigate or prosecute any alcohol or drug abuse patient.[facility] HospitalIn the event this information is protected by the Federal Confidentiality of Alcohol and Drug Abuse Patient Records regulations: The Federal rules restrict any use of the information to criminally investigate or prosecute any alcohol or drug abuse patient.[facility] HospitalIn the event this information is protected by the Federal Confidentiality of Alcohol and Drug Abuse Patient Records regulations: The Federal rules restrict any use of the information to criminally investigate or prosecute any alcohol or drug abuse patient.[facility] HospitalIn the event this information is protected by the Federal Confidentiality of Alcohol and Drug Abuse Patient Records regulations: The Federal rules restrict any use of the information to criminally investigate or prosecute any alcohol or drug abuse patient.[facility] HospitalIn the event this information is protected by the Federal Confidentiality of Alcohol and Drug Abuse Patient Records regulations: The Federal rules restrict any use of the information to criminally investigate or prosecute any alcohol or drug abuse patient.[facility] HospitalIn the event this information is protected by the Federal Confidentiality of Alcohol and Drug Abuse Patient Records regulations: The Federal rules restrict any use of the information to criminally investigate or prosecute any alcohol or drug abuse patient.[facility] HospitalIn the event this information is protected by the Federal Confidentiality of Alcohol and Drug Abuse Patient Records regulations: The Federal rules restrict any use of the information to criminally investigate or prosecute any alcohol or drug abuse patient.[facility] HospitalIn the event this information is protected by the Federal Confidentiality of Alcohol and Drug Abuse Patient Records regulations: The Federal rules restrict any use of the information to criminally investigate or prosecute any alcohol or drug abuse patient.[facility] HospitalIn the event this information is protected by the Federal Confidentiality of Alcohol and Drug Abuse Patient Records regulations: The Federal rules restrict any use of the information to criminally investigate or prosecute any alcohol or drug abuse patient.[facility] HospitalIn the event this information is protected by the Federal Confidentiality of Alcohol and Drug Abuse Patient Records regulations: The Federal rules restrict any use of the information to criminally investigate or prosecute any alcohol or drug abuse patient.[facility] HospitalIn the event this information is protected by the Federal Confidentiality of Alcohol and Drug Abuse Patient Records regulations: The Federal rules restrict any use of the information to criminally investigate or prosecute any alcohol or drug abuse patient.[facility] HospitalIn the event this information is protected by the Federal Confidentiality of Alcohol and Drug Abuse Patient Records regulations: The Federal rules restrict any use of the information to criminally investigate or prosecute any alcohol or drug abuse patient.[facility] HospitalIn the event this information is protected by the Federal Confidentiality of Alcohol and Drug Abuse Patient Records regulations: The Federal rules restrict any use of the information to criminally investigate or prosecute any alcohol or drug abuse patient.[facility] HospitalIn the event this information is protected by the Federal Confidentiality of Alcohol and Drug Abuse Patient Records regulations: The Federal rules restrict any use of the information to criminally investigate or prosecute any alcohol or drug abuse patient.[facility] HospitalIn the event this information is protected by the Federal Confidentiality of Alcohol and Drug Abuse Patient Records regulations: The Federal rules restrict any use of the information to criminally investigate or prosecute any alcohol or drug abuse patient.[facility] HospitalIn the event this information is protected by the Federal Confidentiality of Alcohol and Drug Abuse Patient Records regulations: The Federal rules restrict any use of the information to criminally investigate or prosecute any alcohol or drug abuse patient.[facility] HospitalIn the event this information is protected by the Federal Confidentiality of Alcohol and Drug Abuse Patient Records regulations: The Federal rules restrict any use of the information to criminally investigate or prosecute any alcohol or drug abuse patient.[facility] HospitalIn the event this information is protected by the Federal Confidentiality of Alcohol and Drug Abuse Patient Records regulations: The Federal rules restrict any use of the information to criminally investigate or prosecute any alcohol or drug abuse patient.[facility] HospitalIn the event this information is protected by the Federal Confidentiality of Alcohol and Drug Abuse Patient Records regulations: The Federal rules restrict any use of the information to criminally investigate or prosecute any alcohol or drug abuse patient.[facility] HospitalIn the event this information is protected by the Federal Confidentiality of Alcohol and Drug Abuse Patient Records regulations: The Federal rules restrict any use of the information to criminally investigate or prosecute any alcohol or drug abuse patient.[facility] HospitalIn the event this information is protected by the Federal Confidentiality of Alcohol and Drug Abuse Patient Records regulations: The Federal rules restrict any use of the information to criminally investigate or prosecute any alcohol or drug abuse patient.[facility] HospitalIn the event this information is protected by the Federal Confidentiality of Alcohol and Drug Abuse Patient Records regulations: The Federal rules restrict any use of the information to criminally investigate or prosecute any alcohol or drug abuse patient.[facility] HospitalIn the event this information is protected by the Federal Confidentiality of Alcohol and Drug Abuse Patient Records regulations: The Federal rules restrict any use of the information to criminally investigate or prosecute any alcohol or drug abuse patient.[facility] HospitalIn the event this information is protected by the Federal Confidentiality of Alcohol and Drug Abuse Patient Records regulations: The Federal rules restrict any use of the information to criminally investigate or prosecute any alcohol or drug abuse patient.[facility] HospitalIn the event this information is protected by the Federal Confidentiality of Alcohol and Drug Abuse Patient Records regulations: The Federal rules restrict any use of the information to criminally investigate or prosecute any alcohol or drug abuse patient.[facility] HospitalIn the event this information is protected by the Federal Confidentiality of Alcohol and Drug Abuse Patient Records regulations: The Federal rules restrict any use of the information to criminally investigate or prosecute any alcohol or drug abuse patient.[facility] HospitalIn the event this information is protected by the Federal Confidentiality of Alcohol and Drug Abuse Patient Records regulations: The Federal rules restrict any use of the information to criminally investigate or prosecute any alcohol or drug abuse patient.[facility] HospitalIn the event this information is protected by the Federal Confidentiality of Alcohol and Drug Abuse Patient Records regulations: The Federal rules restrict any use of the information to criminally investigate or prosecute any alcohol or drug abuse patient.[facility] HospitalIn the event this information is protected by the Federal Confidentiality of Alcohol and Drug Abuse Patient Records regulations: The Federal rules restrict any use of the information to criminally investigate or prosecute any alcohol or drug abuse patient.[facility] HospitalIn the event this information is protected by the Federal Confidentiality of Alcohol and Drug Abuse Patient Records regulations: The Federal rules restrict any use of the information to criminally investigate or prosecute any alcohol or drug abuse patient.[facility] HospitalIn the event this information is protected by the Federal Confidentiality of Alcohol and Drug Abuse Patient Records regulations: The Federal rules restrict any use of the information to criminally investigate or prosecute any alcohol or drug abuse patient.[facility] HospitalIn the event this information is protected by the Federal Confidentiality of Alcohol and Drug Abuse Patient Records regulations: The Federal rules restrict any use of the information to criminally investigate or prosecute any alcohol or drug abuse patient.[facility] HospitalIn the event this information is protected by the Federal Confidentiality of Alcohol and Drug Abuse Patient Records regulations: The Federal rules restrict any use of the information to criminally investigate or prosecute any alcohol or drug abuse patient.[facility] HospitalIn the event this information is protected by the Federal Confidentiality of Alcohol and Drug Abuse Patient Records regulations: The Federal rules restrict any use of the information to criminally investigate or prosecute any alcohol or drug abuse patient.[facility] HospitalIn the event this information is protected by the Federal Confidentiality of Alcohol and Drug Abuse Patient Records regulations: The Federal rules restrict any use of the information to criminally investigate or prosecute any alcohol or drug abuse patient.[facility] HospitalIn the event this information is protected by the Federal Confidentiality of Alcohol and Drug Abuse Patient Records regulations: The Federal rules restrict any use of the information to criminally investigate or prosecute any alcohol or drug abuse patient.[facility] HospitalIn the event this information is protected by the Federal Confidentiality of Alcohol and Drug Abuse Patient Records regulations: The Federal rules restrict any use of the information to criminally investigate or prosecute any alcohol or drug abuse patient.[facility] HospitalIn the event this information is protected by the Federal Confidentiality of Alcohol and Drug Abuse Patient Records regulations: The Federal rules restrict any use of the information to criminally investigate or prosecute any alcohol or drug abuse patient.[facility] HospitalIn the event this information is protected by the Federal Confidentiality of Alcohol and Drug Abuse Patient Records regulations: The Federal rules restrict any use of the information to criminally investigate or prosecute any alcohol or drug abuse patient.[facility] HospitalIn the event this information is protected by the Federal Confidentiality of Alcohol and Drug Abuse Patient Records regulations: The Federal rules restrict any use of the information to criminally investigate or prosecute any alcohol or drug abuse patient.[facility] HospitalIn the event this information is protected by the Federal Confidentiality of Alcohol and Drug Abuse Patient Records regulations: The Federal rules restrict any use of the information to criminally investigate or prosecute any alcohol or drug abuse patient.[facility] HospitalIn the event this information is protected by the Federal Confidentiality of Alcohol and Drug Abuse Patient Records regulations: The Federal rules restrict any use of the information to criminally investigate or prosecute any alcohol or drug abuse patient.[facility] HospitalIn the event this information is protected by the Federal Confidentiality of Alcohol and Drug Abuse Patient Records regulations: The Federal rules restrict any use of the information to criminally investigate or prosecute any alcohol or drug abuse patient.[facility] HospitalIn the event this information is protected by the Federal Confidentiality of Alcohol and Drug Abuse Patient Records regulations: The Federal rules restrict any use of the information to criminally investigate or prosecute any alcohol or drug abuse patient.[facility] HospitalIn the event this information is protected by the Federal Confidentiality of Alcohol and Drug Abuse Patient Records regulations: The Federal rules restrict any use of the information to criminally investigate or prosecute any alcohol or drug abuse patient.[facility] HospitalIn the event this information is protected by the Federal Confidentiality of Alcohol and Drug Abuse Patient Records regulations: The Federal rules restrict any use of the information to criminally investigate or prosecute any alcohol or drug abuse patient.[facility] HospitalIn the event this information is protected by the Federal Confidentiality of Alcohol and Drug Abuse Patient Records regulations: The Federal rules restrict any use of the information to criminally investigate or prosecute any alcohol or drug abuse patient.[facility] HospitalIn the event this information is protected by the Federal Confidentiality of Alcohol and Drug Abuse Patient Records regulations: The Federal rules restrict any use of the information to criminally investigate or prosecute any alcohol or drug abuse patient.[facility] HospitalIn the event this information is protected by the Federal Confidentiality of Alcohol and Drug Abuse Patient Records regulations: The Federal rules restrict any use of the information to criminally investigate or prosecute any alcohol or drug abuse patient.[facility] HospitalIn the event this information is protected by the Federal Confidentiality of Alcohol and Drug Abuse Patient Records regulations: The Federal rules restrict any use of the information to criminally investigate or prosecute any alcohol or drug abuse patient.[facility] HospitalIn the event this information is protected by the Federal Confidentiality of Alcohol and Drug Abuse Patient Records regulations: The Federal rules restrict any use of the information to criminally investigate or prosecute any alcohol or drug abuse patient.[facility] HospitalIn the event this information is protected by the Federal Confidentiality of Alcohol and Drug Abuse Patient Records regulations: The Federal rules restrict any use of the information to criminally investigate or prosecute any alcohol or drug abuse patient.[facility] HospitalIn the event this information is protected by the Federal Confidentiality of Alcohol and Drug Abuse Patient Records regulations: The Federal rules restrict any use of the information to criminally investigate or prosecute any alcohol or drug abuse patient.[facility] HospitalIn the event this information is protected by the Federal Confidentiality of Alcohol and Drug Abuse Patient Records regulations: The Federal rules restrict any use of the information to criminally investigate or prosecute any alcohol or drug abuse patient.[facility] HospitalIn the event this information is protected by the Federal Confidentiality of Alcohol and Drug Abuse Patient Records regulations: The Federal rules restrict any use of the information to criminally investigate or prosecute any alcohol or drug abuse patient.[facility] HospitalIn the event this information is protected by the Federal Confidentiality of Alcohol and Drug Abuse Patient Records regulations: The Federal rules restrict any use of the information to criminally investigate or prosecute any alcohol or drug abuse patient.[facility] HospitalIn the event this information is protected by the Federal Confidentiality of Alcohol and Drug Abuse Patient Records regulations: The Federal rules restrict any use of the information to criminally investigate or prosecute any alcohol or drug abuse patient.[facility] HospitalIn the event this information is protected by the Federal Confidentiality of Alcohol and Drug Abuse Patient Records regulations: The Federal rules restrict any use of the information to criminally investigate or prosecute any alcohol or drug abuse patient.[facility] HospitalIn the event this information is protected by the Federal Confidentiality of Alcohol and Drug Abuse Patient Records regulations: The Federal rules restrict any use of the information to criminally investigate or prosecute any alcohol or drug abuse patient.[facility] HospitalIn the event this information is protected by the Federal Confidentiality of Alcohol and Drug Abuse Patient Records regulations: The Federal rules restrict any use of the information to criminally investigate or prosecute any alcohol or drug abuse patient.[facility] HospitalIn the event this information is protected by the Federal Confidentiality of Alcohol and Drug Abuse Patient Records regulations: The Federal rules restrict any use of the information to criminally investigate or prosecute any alcohol or drug abuse patient.[facility] HospitalIn the event this information is protected by the Federal Confidentiality of Alcohol and Drug Abuse Patient Records regulations: The Federal rules restrict any use of the information to criminally investigate or prosecute any alcohol or drug abuse patient.[facility] HospitalIn the event this information is protected by the Federal Confidentiality of Alcohol and Drug Abuse Patient Records regulations: The Federal rules restrict any use of the information to criminally investigate or prosecute any alcohol or drug abuse patient.[facility] HospitalIn the event this information is protected by the Federal Confidentiality of Alcohol and Drug Abuse Patient Records regulations: The Federal rules restrict any use of the information to criminally investigate or prosecute any alcohol or drug abuse patient.[facility] HospitalIn the event this information is protected by the Federal Confidentiality of Alcohol and Drug Abuse Patient Records regulations: The Federal rules restrict any use of the information to criminally investigate or prosecute any alcohol or drug abuse patient.[facility] HospitalIn the event this information is protected by the Federal Confidentiality of Alcohol and Drug Abuse Patient Records regulations: The Federal rules restrict any use of the information to criminally investigate or prosecute any alcohol or drug abuse patient.[facility] HospitalIn the event this information is protected by the Federal Confidentiality of Alcohol and Drug Abuse Patient Records regulations: The Federal rules restrict any use of the information to criminally investigate or prosecute any alcohol or drug abuse patient.[facility] HospitalIn the event this information is protected by the Federal Confidentiality of Alcohol and Drug Abuse Patient Records regulations: The Federal rules restrict any use of the information to criminally investigate or prosecute any alcohol or drug abuse patient.[facility] HospitalIn the event this information is protected by the Federal Confidentiality of Alcohol and Drug Abuse Patient Records regulations: The Federal rules restrict any use of the information to criminally investigate or prosecute any alcohol or drug abuse patient.[facility] HospitalIn the event this information is protected by the Federal Confidentiality of Alcohol and Drug Abuse Patient Records regulations: The Federal rules restrict any use of the information to criminally investigate or prosecute any alcohol or drug abuse patient.[facility] HospitalIn the event this information is protected by the Federal Confidentiality of Alcohol and Drug Abuse Patient Records regulations: The Federal rules restrict any use of the information to criminally investigate or prosecute any alcohol or drug abuse patient.[facility] HospitalIn the event this information is protected by the Federal Confidentiality of Alcohol and Drug Abuse Patient Records regulations: The Federal rules restrict any use of the information to criminally investigate or prosecute any alcohol or drug abuse patient.[facility] HospitalIn the event this information is protected by the Federal Confidentiality of Alcohol and Drug Abuse Patient Records regulations: The Federal rules restrict any use of the information to criminally investigate or prosecute any alcohol or drug abuse patient.[facility] HospitalIn the event this information is protected by the Federal Confidentiality of Alcohol and Drug Abuse Patient Records regulations: The Federal rules restrict any use of the information to criminally investigate or prosecute any alcohol or drug abuse patient.[facility] HospitalIn the event this information is protected by the Federal Confidentiality of Alcohol and Drug Abuse Patient Records regulations: The Federal rules restrict any use of the information to criminally investigate or prosecute any alcohol or drug abuse patient.[facility] HospitalIn the event this information is protected by the Federal Confidentiality of Alcohol and Drug Abuse Patient Records regulations: The Federal rules restrict any use of the information to criminally investigate or prosecute any alcohol or drug abuse patient.[facility] HospitalIn the event this information is protected by the Federal Confidentiality of Alcohol and Drug Abuse Patient Records regulations: The Federal rules restrict any use of the information to criminally investigate or prosecute any alcohol or drug abuse patient.[facility] HospitalIn the event this information is protected by the Federal Confidentiality of Alcohol and Drug Abuse Patient Records regulations: The Federal rules restrict any use of the information to criminally investigate or prosecute any alcohol or drug abuse patient.[facility] HospitalIn the event this information is protected by the Federal Confidentiality of Alcohol and Drug Abuse Patient Records regulations: The Federal rules restrict any use of the information to criminally investigate or prosecute any alcohol or drug abuse patient.[facility] HospitalIn the event this information is protected by the Federal Confidentiality of Alcohol and Drug Abuse Patient Records regulations: The Federal rules restrict any use of the information to criminally investigate or prosecute any alcohol or drug abuse patient.[facility] HospitalIn the event this information is protected by the Federal Confidentiality of Alcohol and Drug Abuse Patient Records regulations: The Federal rules restrict any use of the information to criminally investigate or prosecute any alcohol or drug abuse patient.[facility] HospitalIn the event this information is protected by the Federal Confidentiality of Alcohol and Drug Abuse Patient Records regulations: The Federal rules restrict any use of the information to criminally investigate or prosecute any alcohol or drug abuse patient.[facility] HospitalIn the event this information is protected by the Federal Confidentiality of Alcohol and Drug Abuse Patient Records regulations: The Federal rules restrict any use of the information to criminally investigate or prosecute any alcohol or drug abuse patient.[facility] HospitalIn the event this information is protected by the Federal Confidentiality of Alcohol and Drug Abuse Patient Records regulations: The Federal rules restrict any use of the information to criminally investigate or prosecute any alcohol or drug abuse patient.[facility] HospitalIn the event this information is protected by the Federal Confidentiality of Alcohol and Drug Abuse Patient Records regulations: The Federal rules restrict any use of the information to criminally investigate or prosecute any alcohol or drug abuse patient.[facility] HospitalIn the event this information is protected by the Federal Confidentiality of Alcohol and Drug Abuse Patient Records regulations: The Federal rules restrict any use of the information to criminally investigate or prosecute any alcohol or drug abuse patient.[facility] HospitalIn the event this information is protected by the Federal Confidentiality of Alcohol and Drug Abuse Patient Records regulations: The Federal rules restrict any use of the information to criminally investigate or prosecute any alcohol or drug abuse patient.[facility] HospitalIn the event this information is protected by the Federal Confidentiality of Alcohol and Drug Abuse Patient Records regulations: The Federal rules restrict any use of the information to criminally investigate or prosecute any alcohol or drug abuse patient.[facility] HospitalIn the event this information is protected by the Federal Confidentiality of Alcohol and Drug Abuse Patient Records regulations: The Federal rules restrict any use of the information to criminally investigate or prosecute any alcohol or drug abuse patient.[facility] HospitalIn the event this information is protected by the Federal Confidentiality of Alcohol and Drug Abuse Patient Records regulations: The Federal rules restrict any use of the information to criminally investigate or prosecute any alcohol or drug abuse patient.[facility] HospitalIn the event this information is protected by the Federal Confidentiality of Alcohol and Drug Abuse Patient Records regulations: The Federal rules restrict any use of the information to criminally investigate or prosecute any alcohol or drug abuse patient.[facility] HospitalIn the event this information is protected by the Federal Confidentiality of Alcohol and Drug Abuse Patient Records regulations: The Federal rules restrict any use of the information to criminally investigate or prosecute any alcohol or drug abuse patient.[facility] HospitalIn the event this information is protected by the Federal Confidentiality of Alcohol and Drug Abuse Patient Records regulations: The Federal rules restrict any use of the information to criminally investigate or prosecute any alcohol or drug abuse patient.[facility] HospitalIn the event this information is protected by the Federal Confidentiality of Alcohol and Drug Abuse Patient Records regulations: The Federal rules restrict any use of the information to criminally investigate or prosecute any alcohol or drug abuse patient.[facility] HospitalIn the event this information is protected by the Federal Confidentiality of Alcohol and Drug Abuse Patient Records regulations: The Federal rules restrict any use of the information to criminally investigate or prosecute any alcohol or drug abuse patient.[facility] HospitalIn the event this information is protected by the Federal Confidentiality of Alcohol and Drug Abuse Patient Records regulations: The Federal rules restrict any use of the information to criminally investigate or prosecute any alcohol or drug abuse patient.[facility] HospitalIn the event this information is protected by the Federal Confidentiality of Alcohol and Drug Abuse Patient Records regulations: The Federal rules restrict any use of the information to criminally investigate or prosecute any alcohol or drug abuse patient.[facility] HospitalIn the event this information is protected by the Federal Confidentiality of Alcohol and Drug Abuse Patient Records regulations: The Federal rules restrict any use of the information to criminally investigate or prosecute any alcohol or drug abuse patient.[facility] HospitalIn the event this information is protected by the Federal Confidentiality of Alcohol and Drug Abuse Patient Records regulations: The Federal rules restrict any use of the information to criminally investigate or prosecute any alcohol or drug abuse patient.[facility] HospitalIn the event this information is protected by the Federal Confidentiality of Alcohol and Drug Abuse Patient Records regulations: The Federal rules restrict any use of the information to criminally investigate or prosecute any alcohol or drug abuse patient.[facility] HospitalIn the event this information is protected by the Federal Confidentiality of Alcohol and Drug Abuse Patient Records regulations: The Federal rules restrict any use of the information to criminally investigate or prosecute any alcohol or drug abuse patient.[facility] HospitalIn the event this information is protected by the Federal Confidentiality of Alcohol and Drug Abuse Patient Records regulations: The Federal rules restrict any use of the information to criminally investigate or prosecute any alcohol or drug abuse patient.[facility] HospitalIn the event this information is protected by the Federal Confidentiality of Alcohol and Drug Abuse Patient Records regulations: The Federal rules restrict any use of the information to criminally investigate or prosecute any alcohol or drug abuse patient.[facility] HospitalIn the event this information is protected by the Federal Confidentiality of Alcohol and Drug Abuse Patient Records regulations: The Federal rules restrict any use of the information to criminally investigate or prosecute any alcohol or drug abuse patient.[facility] HospitalIn the event this information is protected by the Federal Confidentiality of Alcohol and Drug Abuse Patient Records regulations: The Federal rules restrict any use of the information to criminally investigate or prosecute any alcohol or drug abuse patient.[facility] HospitalIn the event this information is protected by the Federal Confidentiality of Alcohol and Drug Abuse Patient Records regulations: The Federal rules restrict any use of the information to criminally investigate or prosecute any alcohol or drug abuse patient.[facility] HospitalIn the event this information is protected by the Federal Confidentiality of Alcohol and Drug Abuse Patient Records regulations: The Federal rules restrict any use of the information to criminally investigate or prosecute any alcohol or drug abuse patient.[facility] HospitalIn the event this information is protected by the Federal Confidentiality of Alcohol and Drug Abuse Patient Records regulations: The Federal rules restrict any use of the information to criminally investigate or prosecute any alcohol or drug abuse patient.[facility] HospitalIn the event this information is protected by the Federal Confidentiality of Alcohol and Drug Abuse Patient Records regulations: The Federal rules restrict any use of the information to criminally investigate or prosecute any alcohol or drug abuse patient.[facility] HospitalIn the event this information is protected by the Federal Confidentiality of Alcohol and Drug Abuse Patient Records regulations: The Federal rules restrict any use of the information to criminally investigate or prosecute any alcohol or drug abuse patient.[facility] HospitalIn the event this information is protected by the Federal Confidentiality of Alcohol and Drug Abuse Patient Records regulations: The Federal rules restrict any use of the information to criminally investigate or prosecute any alcohol or drug abuse patient.[facility] HospitalIn the event this information is protected by the Federal Confidentiality of Alcohol and Drug Abuse Patient Records regulations: The Federal rules restrict any use of the information to criminally investigate or prosecute any alcohol or drug abuse patient.[facility] HospitalIn the event this information is protected by the Federal Confidentiality of Alcohol and Drug Abuse Patient Records regulations: The Federal rules restrict any use of the information to criminally investigate or prosecute any alcohol or drug abuse patient.[facility] HospitalIn the event this information is protected by the Federal Confidentiality of Alcohol and Drug Abuse Patient Records regulations: The Federal rules restrict any use of the information to criminally investigate or prosecute any alcohol or drug abuse patient.[facility] HospitalIn the event this information is protected by the Federal Confidentiality of Alcohol and Drug Abuse Patient Records regulations: The Federal rules restrict any use of the information to criminally investigate or prosecute any alcohol or drug abuse patient.[facility] HospitalIn the event this information is protected by the Federal Confidentiality of Alcohol and Drug Abuse Patient Records regulations: The Federal rules restrict any use of the information to criminally investigate or prosecute any alcohol or drug abuse patient.[facility] HospitalIn the event this information is protected by the Federal Confidentiality of Alcohol and Drug Abuse Patient Records regulations: The Federal rules restrict any use of the information to criminally investigate or prosecute any alcohol or drug abuse patient.[facility] HospitalIn the event this information is protected by the Federal Confidentiality of Alcohol and Drug Abuse Patient Records regulations: The Federal rules restrict any use of the information to criminally investigate or prosecute any alcohol or drug abuse patient.[facility] HospitalIn the event this information is protected by the Federal Confidentiality of Alcohol and Drug Abuse Patient Records regulations: The Federal rules restrict any use of the information to criminally investigate or prosecute any alcohol or drug abuse patient.[facility] HospitalIn the event this information is protected by the Federal Confidentiality of Alcohol and Drug Abuse Patient Records regulations: The Federal rules restrict any use of the information to criminally investigate or prosecute any alcohol or drug abuse patient.[facility] HospitalIn the event this information is protected by the Federal Confidentiality of Alcohol and Drug Abuse Patient Records regulations: The Federal rules restrict any use of the information to criminally investigate or prosecute any alcohol or drug abuse patient.[facility] HospitalIn the event this information is protected by the Federal Confidentiality of Alcohol and Drug Abuse Patient Records regulations: The Federal rules restrict any use of the information to criminally investigate or prosecute any alcohol or drug abuse patient.[facility] HospitalIn the event this information is protected by the Federal Confidentiality of Alcohol and Drug Abuse Patient Records regulations: The Federal rules restrict any use of the information to criminally investigate or prosecute any alcohol or drug abuse patient.[facility] HospitalIn the event this information is protected by the Federal Confidentiality of Alcohol and Drug Abuse Patient Records regulations: The Federal rules restrict any use of the information to criminally investigate or prosecute any alcohol or drug abuse patient.[facility] HospitalIn the event this information is protected by the Federal Confidentiality of Alcohol and Drug Abuse Patient Records regulations: The Federal rules restrict any use of the information to criminally investigate or prosecute any alcohol or drug abuse patient.[facility] HospitalIn the event this information is protected by the Federal Confidentiality of Alcohol and Drug Abuse Patient Records regulations: The Federal rules restrict any use of the information to criminally investigate or prosecute any alcohol or drug abuse patient.[facility] HospitalIn the event this information is protected by the Federal Confidentiality of Alcohol and Drug Abuse Patient Records regulations: The Federal rules restrict any use of the information to criminally investigate or prosecute any alcohol or drug abuse patient.[facility] HospitalIn the event this information is protected by the Federal Confidentiality of Alcohol and Drug Abuse Patient Records regulations: The Federal rules restrict any use of the information to criminally investigate or prosecute any alcohol or drug abuse patient.[facility] HospitalIn the event this information is protected by the Federal Confidentiality of Alcohol and Drug Abuse Patient Records regulations: The Federal rules restrict any use of the information to criminally investigate or prosecute any alcohol or drug abuse patient.[facility] HospitalIn the event this information is protected by the Federal Confidentiality of Alcohol and Drug Abuse Patient Records regulations: The Federal rules restrict any use of the information to criminally investigate or prosecute any alcohol or drug abuse patient.[facility] HospitalIn the event this information is protected by the Federal Confidentiality of Alcohol and Drug Abuse Patient Records regulations: The Federal rules restrict any use of the information to criminally investigate or prosecute any alcohol or drug abuse patient.[facility] HospitalIn the event this information is protected by the Federal Confidentiality of Alcohol and Drug Abuse Patient Records regulations: The Federal rules restrict any use of the information to criminally investigate or prosecute any alcohol or drug abuse patient.[facility] HospitalIn the event this information is protected by the Federal Confidentiality of Alcohol and Drug Abuse Patient Records regulations: The Federal rules restrict any use of the information to criminally investigate or prosecute any alcohol or drug abuse patient.[facility] HospitalIn the event this information is protected by the Federal Confidentiality of Alcohol and Drug Abuse Patient Records regulations: The Federal rules restrict any use of the information to criminally investigate or prosecute any alcohol or drug abuse patient.[facility] HospitalIn the event this information is protected by the Federal Confidentiality of Alcohol and Drug Abuse Patient Records regulations: The Federal rules restrict any use of the information to criminally investigate or prosecute any alcohol or drug abuse patient.[facility] HospitalIn the event this information is protected by the Federal Confidentiality of Alcohol and Drug Abuse Patient Records regulations: The Federal rules restrict any use of the information to criminally investigate or prosecute any alcohol or drug abuse patient.[facility] HospitalIn the event this information is protected by the Federal Confidentiality of Alcohol and Drug Abuse Patient Records regulations: The Federal rules restrict any use of the information to criminally investigate or prosecute any alcohol or drug abuse patient.[facility] HospitalIn the event this information is protected by the Federal Confidentiality of Alcohol and Drug Abuse Patient Records regulations: The Federal rules restrict any use of the information to criminally investigate or prosecute any alcohol or drug abuse patient.[facility] HospitalIn the event this information is protected by the Federal Confidentiality of Alcohol and Drug Abuse Patient Records regulations: The Federal rules restrict any use of the information to criminally investigate or prosecute any alcohol or drug abuse patient.[facility] HospitalIn the event this information is protected by the Federal Confidentiality of Alcohol and Drug Abuse Patient Records regulations: The Federal rules restrict any use of the information to criminally investigate or prosecute any alcohol or drug abuse patient.[facility] HospitalIn the event this information is protected by the Federal Confidentiality of Alcohol and Drug Abuse Patient Records regulations: The Federal rules restrict any use of the information to criminally investigate or prosecute any alcohol or drug abuse patient.[facility] HospitalIn the event this information is protected by the Federal Confidentiality of Alcohol and Drug Abuse Patient Records regulations: The Federal rules restrict any use of the information to criminally investigate or prosecute any alcohol or drug abuse patient.[facility] HospitalIn the event this information is protected by the Federal Confidentiality of Alcohol and Drug Abuse Patient Records regulations: The Federal rules restrict any use of the information to criminally investigate or prosecute any alcohol or drug abuse patient.[facility] HospitalIn the event this information is protected by the Federal Confidentiality of Alcohol and Drug Abuse Patient Records regulations: The Federal rules restrict any use of the information to criminally investigate or prosecute any alcohol or drug abuse patient.[facility] HospitalIn the event this information is protected by the Federal Confidentiality of Alcohol and Drug Abuse Patient Records regulations: The Federal rules restrict any use of the information to criminally investigate or prosecute any alcohol or drug abuse patient.[facility] HospitalIn the event this information is protected by the Federal Confidentiality of Alcohol and Drug Abuse Patient Records regulations: The Federal rules restrict any use of the information to criminally investigate or prosecute any alcohol or drug abuse patient.[facility] HospitalIn the event this information is protected by the Federal Confidentiality of Alcohol and Drug Abuse Patient Records regulations: The Federal rules restrict any use of the information to criminally investigate or prosecute any alcohol or drug abuse patient.[facility] HospitalIn the event this information is protected by the Federal Confidentiality of Alcohol and Drug Abuse Patient Records regulations: The Federal rules restrict any use of the information to criminally investigate or prosecute any alcohol or drug abuse patient.[facility] HospitalIn the event this information is protected by the Federal Confidentiality of Alcohol and Drug Abuse Patient Records regulations: The Federal rules restrict any use of the information to criminally investigate or prosecute any alcohol or drug abuse patient.[facility] HospitalIn the event this information is protected by the Federal Confidentiality of Alcohol and Drug Abuse Patient Records regulations: The Federal rules restrict any use of the information to criminally investigate or prosecute any alcohol or drug abuse patient.[facility] Goals (unrecognized section and content) Goals may [...] BE BASED ON THE PRIMARY CLINICAL RECORDS. [facility]. provides no warranty or guarantee of the accuracy or completeness of information in this document.
--- OUTSIDE RECORDS SUMMARY | 2024-08-09 00:15 | XMS RPT_ITS | CCD ---
Author Organization [facility] Care Team Providers Care Application Designer Name Role Phone Unavailable Primary Care Provider [...] Primary Care Provider HARMAN Munoz Attending Provider [phone] HARMAN Munoz Other Provider Dr. Abhi Quan Referring Provider Bijan Elmore MD Primary Care Provider Unavailable [...] Catarina ESCAMILLA, Bijan Darnell Primary Care Provider [phone] Van HUMAN SERVICES PROFESSIONAL.FOOD SERVICE WORKER, Cheryl Unavailable TALBOO-LISSA PA~[phone], TALBOO-LISSA DI SUMA Attending Unavailable TALBOO-LISSA PA~[phone], TALBOO-LISSA DI SUMA Admitting Unavailable BIJAN ELMORE [...] Primary Care Unavailable Francisco Elmore Referring Unavailable [facility] Doctor, Out of Attending Unavailable Francisco [...] Propensity to adverse reactions to drug 6 [place], [place] (17 sources) Penicillins Drug Allergy 6 Other, Shortness of breath, Unknown [facility] (3 sources) Penicillins Allergy to substance 3 Unknown [facility] (9 sources) Penicillins Drug Allergy 6 Other, Shortness of breath, Unknown [facility] (2 sources) Penicillin; Translations: [PENICILLIN] Drug Allergy 6 [facility] Repository (1 source) ALLERGIES NOT ON FILE; Translations: [ALLERGIES NOT ON FILE] Propensity to adverse reactions (disorder) [facility] 1 Repository (1 source) Penicillins Drug Allergy 6 Other, Shortness of breath, Unknown [facility] (1 source) Penicillins Drug allergy (disorder) 5 [facility] Repository Medications Current Medications Medication Drug [...] on above: Take 2 tablets by mo [facility] every 6 hours as needed for pain. [...] times daily PRN, muscle spasms, Starting on [facility] 03/25/24 at 2335 Start: 12-12-2021 End: [...] twice daily. Take 3 tablets by mo [facility] three times daily. Take 1 tablet by [...] Start: 03-11-2024 take 10 mg rectal ro [place] every twenty-four hours as needed Start: 03-11-2024 take 1 tablet by ananth every twenty-four hours as needed Start: 01-09-2024 take 10 mg rectal ro [place] every twenty-four hours as needed Start: 12-28-2020 End: 12-28-2020 take 10 mg rectal route once 10 mg, Rectal, ONCE, On T hu 12/28/20 at 2100, For 1 dose Start: 12-23-2020 End: 12-27-2020 take 10 mg rectal route once daily 10 mg, Rectal, DAILY, First dose on [facility] 12/23/20 at 0900 Start: 12-21-2020 End: [...] docusate sodium 50 mg / matt osides, long-term 8.6 mg oral tablet (2 sources) Start: 05-05-2024 Start: 01-09-2024 take 2 tablets by [facility] twice daily for constipation 2 tablet, [...] Comment on above: take 1 tablet by [facility] three times a day Take 1 tablet by [facility] three times daily for 90 days. Take 1 tablet by [facility] three times daily for 30 days. Take 1 tablet by [facility] three times a day for 90 [...] twice a day Take 1 tablet by [facility] two times a day. 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 sennosides, long-term 8.6 mg oral tablet (5 sources) Start: [...] 2112, Phase II/On Unit, 2nd Line. Give [place] if patient is unable to take orally [...] tablet 1 tablet 500 ml albumin human, long-term 50 mg/ml injection (1 source) Human Serum Albumin Start: 03-25-2024 End: 03-25-2024 12.5 g, intravenous, at 250 mL/hr, Administer over 60 Minutes, Once, On [facility] 03/25/24 at 2200, For 1 dose, [...] on above: Take 1 capsule by mo [facility] twice daily for 10 days. Take 1 capsule by mo [facility] twice daily for 7 days. doxycycline hyclate [...] Comment on above: Take 1 capsule by [facility] as needed. hydrOXYzine hydrochloride 25 mg [...] Comment on above: take 1 tablet by [facility] three times a day if needed [...] a venous catheter once every 24 hours. [id number] mg 03/16/2024 04/23/2024 Suspended Start: 03-16-2024 End: 04-23-2024 sodium chloride 0.9% van ral solution 50 mL with DAPTOmycin 50 mg/mL recon soln 750 mg Indications: Chronic multifocal osteomyelitis of right tibia (Multi) Infuse 750 mg at 130 mL/hr over 30 minutes into a venous catheter once every 24 hours. [id number] mg 03/16/2024 04/23/2024 Active 150 ml vancomycin [...] sources) Long-term current use of antibiotic; Translations: [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] Onset: 1 01-31-2021 Episodic Other aftercare (2 sources) rat exterminator (current) use of aspirin; Translations: [rat exterminator (current) use of aspirin] Onset: 2 Episodic Other aftercare (2 sources) shelter (current) use of systemic steroids; Translations: [rat exterminator (current) use of systemic steroids] Onset: 2 Episodic Other aftercare (2 sources) Other terminal make up operator (current) drug therapy; Translations: [Other terminal make up operator (current) drug therapy] Onset: 2 Episodic Other aftercare (1 source) 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; Translations: [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] Onset: 1 Episodic [...] CK [Catalytic activity/Vol] 46 U/L Normal 42-196 [facility] Comment on above: Result Comment: [facility] [address] [place] [address] Emiliano Pace III, M.D. [id number] Performed By: #### 2 36856 #### [facility],[address] [place] [address] 42794 C-REACTIVE PROTEINon 025 CRP 2.90 mg/dl High 0.00 - 0.90 [facility] Comment on above: Performed By: #### 2 55917 #### [facility],[address] [place] [address] 00217 CBC + DIFFon 06-10-2024 ANISO 1+ Normal [facility] Comment on above: Performed By: #### 2 43408 #### [facility],[address] [place] [address] 10582 Baso # 0.02 x10EE3/UL Normal 0.00 - 0.10 [facility] Comment on above: Performed By: #### 2 46325 #### [facility],[address] [place] [address] 83620 Basophils/100 WBC (Bld) 0.3 % Normal 0.0 - 2.0 [facility] Comment on above: Performed By: #### 2 64782 #### [facility],[address] [place] [address] 70826 CBC + DIFF Normal [facility] Comment on above: Result Comment: CBC- COMPLETE BLOOD COUNT Performed By: #### 2 74147 #### [facility],[address] [place] [address] 21582 CELL COUNT 100 Normal [facility] Comment on above: Performed By: #### 2 01159 #### [facility],[address] [place], [place] [address] EO 6.0 % Normal 0.0 - 7.0 [facility] Comment on above: Performed By: #### 2 93232 #### [facility],[address] [place] [address] EO # 0.32 x10EE3/UL Normal 0.00 - 0.50 [facility] Comment on above: Performed By: #### 2 26336 #### [facility],[address] [place] [address] 97082 Eosinophils/100 WBC (Bld) 5.1 % Normal 0.0 - 7.0 [facility] Comment on above: Performed By: #### 2 79906 #### [facility],[address] [place], [place] [address] Erythrocyte distribution width (RBC) [Ratio] 21.9 % High 12.0 - 15.6 [facility] Comment on above: Performed By: #### 2 72851 #### [facility],[address] [place] [address] 32749 Hematocrit (Bld) [Volume fraction] 30.4 % Low 34.0 - 46.0 [facility] Comment on above: Performed By: #### 2 15962 #### [facility],[address] [place] [address] 90033 Hemoglobin (Bld) [Mass/Vol] 9.8 g/dL Low 12.0 - 16.0 [facility] Comment on above: Performed By: #### 2 34573 #### [facility],[address] [place] [address] 12385 Lymph # 2.83 x10EE3/UL High 0.80 - 2.80 [facility] Comment on above: Performed By: #### 2 97071 #### [facility],[address] [place] [address] 58109 Lymphocytes/100 WBC (Bld) 45.2 % High 20.0 - 45.0 [facility] Comment on above: Performed By: #### 2 98893 #### [facility],[address] [place] [address] 02382 Lymphocytes/100 WBC (Bld) 44 % Normal 20 - 45 [facility] Comment on above: Performed By: #### 2 29634 #### [facility],[address] [place] [address] 90299 MANUAL DIFF SEE BELOW Normal [facility] Comment on above: Performed By: #### 2 74553 #### [facility],[address] [place] [address] 44157 MCH (RBC) [Entitic mass] 25 pg Low 27 - 33 [facility] Comment on above: Performed By: #### 2 58804 #### [facility],[address] [place] [address] 05714 MCHC 32 X10 3 Normal 32 - 36 [facility] Comment on above: Performed By: #### 2 22343 #### [facility],[address] [place] [address] 85389 MCV (RBC) [Entitic vol] 77 fL Low 80 - 99 [facility] Comment on above: Performed By: #### 2 89260 #### [facility],[address] [place] [address] 76009 MICROCYTES 1+ Normal [facility] Comment on above: Performed By: #### 2 77337 #### [facility],[address] [place] [address] 62635 Rains # 0.71 x10EE3/UL Normal 0.20 - 1.00 [facility] Comment on above: Performed By: #### 2 84581 #### [facility],[address] [place] [address] 31669 MONOS 10 % Normal 0 - 10 [facility] Comment on above: Performed By: #### 2 45374 #### [facility],[address] [place] [address] 18810 MONOS % 11.4 % High 0.0 - 10.0 [facility] Comment on above: Performed By: #### 2 57037 #### [facility],[address] [place] [address] 72427 Morphology David (Bld) [Interp] SEE BELOW Normal [facility] Comment on above: Performed By: #### 2 93031 #### [facility],[address] [place] [address] 94489 Neut # 2.39 x10EE3/UL Normal 1.50 - 7.10 [facility] Comment on above: Performed By: #### 2 13482 #### [facility],[address] [place] [address] 78835 Neutrophils/100 WBC (Bld) 38.1 % Low 46.0 - 76.0 [facility] Comment on above: Performed By: #### 2 54644 #### [facility],[address] [place] [address] 74829 PLATELET 526 x10EE3/UL High 150 - 450 [facility] Comment on above: Performed By: #### 2 63776 #### [facility],[address] [place] [address] 92331 Platelet mean volume (Bld) [Entitic vol] 8.5 fL Normal 6.6 - 10.5 [facility] Comment on above: Result Comment: AUTO MATED DIFFERENTIAL Performed By: #### 2 10135 #### [facility],[address] [place] [address] 23414 POIKILO 1+ Normal [facility] Comment on above: Performed By: #### 2 75766 #### [facility],[address] [place] [address] 62821 RBC 3.93 x 10EE6/UL Low 4.10 - 5.30 [facility] Comment on above: Performed By: #### 2 69651 #### [facility],[address] [place] [address] SEGS 40 % Low 46 - 76 [facility] Comment on above: Performed By: #### 2 34290 #### [facility],[address] [place], [place] [address] WBC 6.3 x 10EE3/UL Normal 4.5 - 10.8 [facility] Comment on above: Performed By: #### 2 49455 #### [facility],[address] [place], [place] [address] Other +1 TARGET CELLS Normal [facility] Comment on above: Result Comment: +1 B URR CELLS Performed By: #### 2 60202 #### [facility],[address] [place], [place] [address] CMP with eGFRon 06-10-2024 AGE 54 years Normal [facility] Comment on above: Performed By: #### 2 45852 #### [facility],[address] [place] [address] 50794 Albumin [Mass/Vol] 2.9 g/dL Low 3.4 - 5.0 [facility] Comment on above: Performed By: #### 2 37943 #### [facility],[address] [place] [address] 80632 Albumin/Globulin [Mass ratio] 0.7 {ratio} Low 0.9 - 1.6 [facility] Comment on above: Performed By: #### 2 90543 #### [facility],[address] [place] [address] 35652 ALK PHOS 123 U/L High 46 - 116 [facility] Comment on above: Performed By: #### 2 57682 #### [facility],[address] [place] [address] 20147 ALT [Catalytic activity/Vol] 30 U/L Normal 16 - 63 [facility] Comment on above: Performed By: #### 2 48111 #### [facility],[address] [place] [address] 00690 Anion gap [Moles/Vol] 12 mmol/L Normal 10 - 20 [facility] Comment on above: Performed By: #### 2 68921 #### [facility],[address] [place] [address] 54755 AST [Catalytic activity/Vol] 24 U/L Normal 13 - 39 [facility] Comment on above: Performed By: #### 2 26953 #### [facility],[address] [place] [address] 27890 B/C RATIO 14 ratio Normal 0 - 30 [facility] Comment on above: Performed By: #### 2 82173 #### [facility],[address] [place] [address] 31248 Bilirubin [Mass/Vol] 0.1 mg/dL Low 0.2 - 1.0 [facility] Comment on above: Performed By: #### 2 33096 #### [facility],[address] [place] [address] 66441 Calcium [Mass/Vol] 9.1 mg/dL Normal 8.5 - 10.1 [facility] Comment on above: Performed By: #### 2 80817 #### [facility],[address] [place] [address] 57842 Chloride [Moles/Vol] 102 mmol/L Normal 98 - 107 [facility] Comment on above: Performed By: #### 2 32200 #### [facility],[address] [place] [address] 92422 CMP with eGFR Normal [facility] Comment on above: Result Comment: COMP REHENSIVE METABOLIC PANEL Performed By: #### 2 26476 #### [facility],[address] [place] [address] 51207 CO2 [Moles/Vol] 28.0 mmol/L Normal 21.0 - 32.0 [facility] Comment on above: Performed By: #### 2 16267 #### [facility],[address] [place] [address] 01696 Creatinine [Mass/Vol] 0.78 mg/dL Normal 0.55 - 1.02 [facility] Comment on above: Performed By: #### 2 00820 #### [facility],[address] [place] [address] 17180 GFR/1.73 sq M.predicted among non-blacks MDRD (S/P/Bld) [Vol rate/Area] mL/min/{1.73_m2} Normal 60 - 999 [facility] Comment on above: Performed By: #### 2 25510 #### [facility],[address] [place], [place] [address] Result Comment: ACCO RDING TO THE NATIONAL KIDNEY DISEASE EDUCATION PROGRAM(NKDE), A NORMAL eGFR IS A VALUE GREATER THAN OR EQUAL TO 60 ML/MIN/1.73 SQ METERS. CHRONIC KIDNEY DISEASE: <60mL/MIN/1.73 SQ METERS KIDNEY FAILURE: <15mL/MIN/1.73 SQ METERS THIS TEST SHOULD ONLY BE USED FOR PATIENTS 18 YEARS OF AGE AND OLDER. Globulin (S) [Mass/Vol] 4.0 g/dL High 1.5 - 3.8 [facility] Comment on above: Performed By: #### 2 48483 #### [facility],[address] [place] [address] 51229 Glucose [Mass/Vol] 112 mg/dL High 74 - 106 [facility] Comment on above: Performed By: #### 2 19025 #### [facility],[address] [place] [address] 36588 Potassium [Moles/Vol] 4.0 mmol/L Normal 3.5 - 5.1 [facility] Comment on above: Performed By: #### 2 97732 #### [facility],[address] [place] [address] 12644 Protein [Mass/Vol] 6.9 g/dL Normal 6.4 - 8.2 [facility] Comment on above: Performed By: #### 2 06526 #### [facility],[address] [place] [address] 27875 Sodium [Moles/Vol] 138 mmol/L Normal 136 - 145 [facility] Comment on above: Performed By: #### 2 64681 #### [facility],[address] [place] [address] 76543 Urea nitrogen [Mass/Vol] 11 mg/dL Normal 7 - 18 [facility] Comment on above: Performed By: #### 2 60615 #### [facility],[address] [place] [address] 97339 CBC W/Diff, Automatedon 05-19 PATH REV Reviewed Normal [facility] Comment on above: Result Comment: SEE REPORT IN PATIENT'S EMR AMENDED REPORT 06/07/24 1516 PATH REV previously reported as: June rosita Performed By: #### L 500.2500, L100.0100 #### [facility] [address] [place], [address] CK [CCL]on 06-04-2024 CK [Catalytic activity/Vol] 86 U/L Normal 42-196 [facility] Comment on above: Result Comment: [facility] [address] [place] [address] Emiliano Pace III, M.D. [id number] Performed By: #### 2 75674 #### [facility],[address] [place] [address] 64981 C-REACTIVE PROTEINon 025 CRP 5.52 mg/dl High 0.00 - 0.90 [facility] Comment on above: Performed By: #### 2 22089 #### [facility],[address] [place] [address] 20451 CBC + DIFFon 06-03-2024 ANISO 1+ Normal [facility] Comment on above: Performed By: #### 2 78028 #### [facility],[address] [place] [address] 20063 Baso # 0.03 x10EE3/UL Normal 0.00 - 0.10 [facility] Comment on above: Performed By: #### 2 14672 #### [facility],[address] [place] [address] 47840 Basophils/100 WBC (Bld) 0.4 % Normal 0.0 - 2.0 [facility] Comment on above: Performed By: #### 2 29939 #### [facility],[address] [place] [address] 00620 CBC + DIFF Normal [facility] Comment on above: Result Comment: CBC- COMPLETE BLOOD COUNT Performed By: #### 2 43296 #### [facility],[address] [place] [address] 58581 CELL COUNT 100 Normal [facility] Comment on above: Performed By: #### 2 53194 #### [facility],[address] [place] [address] 56934 EO 7.0 % Normal 0.0 - 7.0 [facility] Comment on above: Performed By: #### 2 60082 #### [facility],[address] [place] [address] 34116 EO # 0.48 x10EE3/UL Normal 0.00 - 0.50 [facility] Comment on above: Performed By: #### 2 94859 #### [facility],[address] [place] [address] 39903 Eosinophils/100 WBC (Bld) 6.7 % Normal 0.0 - 7.0 [facility] Comment on above: Performed By: #### 2 80490 #### [facility],[address] [place] [address] 75906 Erythrocyte distribution width (RBC) [Ratio] 20.5 % High 12.0 - 15.6 [facility] Comment on above: Performed By: #### 2 21550 #### [facility],[address] [place] [address] 72864 Hematocrit (Bld) [Volume fraction] 30.1 % Low 34.0 - 46.0 [facility] Comment on above: Performed By: #### 2 69661 #### [facility],[address] [place] [address] 95182 Hemoglobin (Bld) [Mass/Vol] 9.5 g/dL Low 12.0 - 16.0 [facility] Comment on above: Performed By: #### 2 46957 #### [facility],[address] [place] [address] 29862 HYPOCHROM 1+ Normal [facility] Comment on above: Performed By: #### 2 57443 #### [facility],[address] [place] [address] 52589 Lymph # 3.63 x10EE3/UL High 0.80 - 2.80 [facility] Comment on above: Performed By: #### 2 41956 #### [facility],[address] [place] [address] 14180 Lymphocytes/100 WBC (Bld) 50.4 % High 20.0 - 45.0 [facility] Comment on above: Performed By: #### 2 64167 #### [facility],[address] [place] [address] 06867 Lymphocytes/100 WBC (Bld) 45 % Normal 20 - 45 [facility] Comment on above: Performed By: #### 2 49617 #### [facility],[address] [place] [address] MANUAL DIFF SEE BELOW Normal [facility] Comment on above: Performed By: #### 2 12886 #### [facility],[address] [place] [address] MCH (RBC) [Entitic mass] 25 pg Low 27 - 33 [facility] Comment on above: Performed By: #### 2 36764 #### [facility],[address] [place] [address] MCHC 31 X10 3 Low 32 - 36 [facility] Comment on above: Performed By: #### 2 89833 #### [facility],[address] [place] [address] MCV (RBC) [Entitic vol] 79 fL Low 80 - 99 [facility] Comment on above: Performed By: #### 2 14749 #### [facility],[address] [place] [address] MICROCYTES 1+ Normal [facility] Comment on above: Performed By: #### 2 39647 #### [facility],[address] [place] [address] Rains # 0.90 x10EE3/UL Normal 0.20 - 1.00 [facility] Comment on above: Performed By: #### 2 64639 #### [facility],[address] [place] [address] MONOS 15 % High 0 - 10 [facility] Comment on above: Performed By: #### 2 56267 #### [facility],[address] [place] [address] MONOS % 12.5 % High 0.0 - 10.0 [facility] Comment on above: Performed By: #### 2 37081 #### [facility],[address] [place] [address] Morphology David (Bld) [Interp] SEE BELOW Normal [facility] Comment on above: Performed By: #### 2 83367 #### [facility],[address] [place] [address] 16511 Neut # 2.16 x10EE3/UL Normal 1.50 - 7.10 [facility] Comment on above: Performed By: #### 2 65645 #### [facility],[address] [place] [address] Neutrophils/100 WBC (Bld) 30.0 % Low 46.0 - 76.0 [facility] Comment on above: Performed By: #### 2 85467 #### [facility],[address] [place], [place] [address] PLATELET 858 x10EE3/UL High 150 - 450 [facility] Comment on above: Performed By: #### 2 31929 #### [facility],[address] [place] [address] Platelet mean volume (Bld) [Entitic vol] 8.4 fL Normal 6.6 - 10.5 [facility] Comment on above: Result Comment: AUTO MATED DIFFERENTIAL Performed By: #### 2 15320 #### [facility],[address] [place] [address] 76072 PLT EST INCREASED Normal [facility] Comment on above: Performed By: #### 2 35872 #### [facility],[address] [place] [address] 08077 POIKILO 1+ Normal [facility] Comment on above: Performed By: #### 2 64876 #### [facility],[address] [place] [address] 96323 RBC 3.83 x 10EE6/UL Low 4.10 - 5.30 [facility] Comment on above: Performed By: #### 2 97868 #### [facility],[address] [place] [address] SEGS 33 % Low 46 - 76 [facility] Comment on above: Performed By: #### 2 90965 #### [facility],[address] [place] [address] 70034 WBC 7.2 x 10EE3/UL Normal 4.5 - 10.8 [facility] Comment on above: Performed By: #### 2 01504 #### [facility],[address] [place] [address] Other 2+ TARGET CELLS Normal [facility] Comment on above: Result Comment: 1+ B URR CELLS Performed By: #### 2 34735 #### [facility],[address] [place] [address] CMP with eGFRon 06-03-2024 AGE 54 years Normal [facility] Comment on above: Performed By: #### 2 49935 #### [facility],[address] [place] [address] Albumin [Mass/Vol] 3.1 g/dL Low 3.4 - 5.0 [facility] Comment on above: Performed By: #### 2 48462 #### [facility],[address] [place] [address] Albumin/Globulin [Mass ratio] 0.7 {ratio} Low 0.9 - 1.6 [facility] Comment on above: Performed By: #### 2 49444 #### [facility],[address] [place] [address] 43634 ALK PHOS 144 U/L High 46 - 116 [facility] Comment on above: Performed By: #### 2 70076 #### [facility],[address] [place] [address] 22666 ALT [Catalytic activity/Vol] 35 U/L Normal 16 - 63 [facility] Comment on above: Performed By: #### 2 59390 #### [facility],[address],[place] [address] Anion gap [Moles/Vol] 13 mmol/L Normal 10 - 20 [facility] Comment on above: Performed By: #### 2 13243 #### [facility],[address] [place] [address] 40308 AST [Catalytic activity/Vol] 33 U/L Normal 13 - 39 [facility] Comment on above: Performed By: #### 2 39145 #### [facility],[address] [place] [address] 93141 B/C RATIO 5 ratio Normal 0 - 30 [facility] Comment on above: Performed By: #### 2 22548 #### [facility],[address] [place] [address] 30809 Bilirubin [Mass/Vol] 0.2 mg/dL Normal 0.2 - 1.0 [facility] Comment on above: Performed By: #### 2 75344 #### [facility],[address] [place] [address] 32606 Calcium [Mass/Vol] 9.5 mg/dL Normal 8.5 - 10.1 [facility] Comment on above: Performed By: #### 2 35887 #### [facility],[address] [place] [address] 11341 Chloride [Moles/Vol] 102 mmol/L Normal 98 - 107 [facility] Comment on above: Performed By: #### 2 48366 #### [facility],[address] [place] [address] 96095 CMP with eGFR Normal [facility] Comment on above: Result Comment: COMP REHENSIVE METABOLIC PANEL Performed By: #### 2 38947 #### [facility],[address] [place] [address] 90065 CO2 [Moles/Vol] 28.4 mmol/L Normal 21.0 - 32.0 [facility] Comment on above: Performed By: #### 2 21596 #### [facility],[address] [place] [address] 34584 Creatinine [Mass/Vol] 0.74 mg/dL Normal 0.55 - 1.02 [facility] Comment on above: Performed By: #### 2 26445 #### [facility],[address] [place] [address] GFR/1.73 sq M.predicted among non-blacks MDRD (S/P/Bld) [Vol rate/Area] mL/min/{1.73_m2} Normal 60 - 999 [facility] Comment on above: Performed By: #### 2 94839 #### [facility],[address] [place] [address] Result Comment: ACCO RDING TO THE NATIONAL KIDNEY DISEASE EDUCATION PROGRAM(NKDE), A NORMAL eGFR IS A VALUE GREATER THAN OR EQUAL TO 60 ML/MIN/1.73 SQ METERS. CHRONIC KIDNEY DISEASE: <60mL/MIN/1.73 SQ METERS KIDNEY FAILURE: <15mL/MIN/1.73 SQ METERS THIS TEST SHOULD ONLY BE USED FOR PATIENTS 18 YEARS OF AGE AND OLDER. Globulin (S) [Mass/Vol] 4.6 g/dL High 1.5 - 3.8 [facility] Comment on above: Performed By: #### 2 85659 #### [facility],[address] [place] [address] Glucose [Mass/Vol] 90 mg/dL Normal 74 - 106 [facility] Comment on above: Performed By: #### 2 81925 #### [facility],[address] [place], [place] [address] Potassium [Moles/Vol] 4.2 mmol/L Normal 3.5 - 5.1 [facility] Comment on above: Performed By: #### 2 75305 #### [facility],[address] [place], [place] [address] Protein [Mass/Vol] 7.7 g/dL Normal 6.4 - 8.2 [facility] Comment on above: Performed By: #### 2 64241 #### [facility],[address] [place] [address] 71501 Sodium [Moles/Vol] 139 mmol/L Normal 136 - 145 [facility] Comment on above: Performed By: #### 2 60762 #### [facility],[address] [place] [address] 22939 Urea nitrogen [Mass/Vol] 4 mg/dL Low 7 - 18 [facility] Comment on above: Performed By: #### 2 10129 #### [facility],[address] [place] [address] 71826 CK [CCL]on 05-28-2024 CK [Catalytic activity/Vol] 74 U/L Normal 42-196 [facility] Comment on above: Result Comment: [facility] [address] [place] [address] Emiliano Pace III, M.D. [id number] Performed By: #### 2 73748 #### [facility],[address] [place] [address] 58634 C-REACTIVE PROTEINon 025 CRP 5.01 mg/dl High 0.00 - 0.90 [facility] Comment on above: Performed By: #### 2 05370 #### [facility],[address] [place] [address] 02635 CBC + DIFFon 05-27-2024 Baso # 0.02 x10EE3/UL Normal 0.00 - 0.10 [facility] Comment on above: Performed By: #### 2 54872 #### [facility],[address] [place] [address] 60906 Basophils/100 WBC (Bld) 0.3 % Normal 0.0 - 2.0 [facility] Comment on above: Performed By: #### 2 20336 #### [facility],[address] [place] [address] 95921 CBC + DIFF Normal [facility] Comment on above: Result Comment: CORRECTED REPORT CBC-COMPLETE BLOOD COUNT Performed By: #### 2 08700 #### [facility],[address] [place] [address] 64014 EO 1.0 % Normal 0.0 - 7.0 [facility] Comment on above: Performed By: #### 2 01703 #### [facility],[address] [place] [address] 21329 EO # 0.44 x10EE3/UL Normal 0.00 - 0.50 [facility] Comment on above: Performed By: #### 2 35781 #### [facility],[address] [place] [address] 87646 Eosinophils/100 WBC (Bld) 6.7 % Normal 0.0 - 7.0 [facility] Comment on above: Performed By: #### 2 29698 #### [facility],[address] [place], [place] [address] ERROR DUE TO MANUAL DIFF Normal [facility] Comment on above: Result Comment: NEED ED A MANUAL DIFF PERFORMED Performed By: #### 2 15581 #### [facility],[address] [place] [address] 27401 Erythrocyte distribution width (RBC) [Ratio] 19.5 % High 12.0 - 15.6 [facility] Comment on above: Performed By: #### 2 42324 #### [facility],[address] [place] [address] 06095 Hematocrit (Bld) [Volume fraction] 26.5 % Low 34.0 - 46.0 [facility] Comment on above: Performed By: #### 2 95311 #### [facility],[address] [place] [address] 47600 Hemoglobin (Bld) [Mass/Vol] 8.8 g/dL Low 12.0 - 16.0 [facility] Comment on above: Performed By: #### 2 40791 #### [facility],[address] [place] [address] Lymph # 3.28 x10EE3/UL High 0.80 - 2.80 [facility] Comment on above: Performed By: #### 2 97431 #### [facility],[address] [place] [address] Lymphocytes/100 WBC (Bld) 49.4 % High 20.0 - 45.0 [facility] Comment on above: Performed By: #### 2 84589 #### [facility],[address] [place] [address] Lymphocytes/100 WBC (Bld) 53 % High 20 - 45 [facility] Comment on above: Performed By: #### 2 24839 #### [facility],[address] [place] [address] MANUAL DIFF SEE BELOW Normal [facility] Comment on above: Performed By: #### 2 11044 #### [facility],[address] [place] [address] MCH (RBC) [Entitic mass] 25 pg Low 27 - 33 [facility] Comment on above: Performed By: #### 2 22308 #### [facility],[address] [place] [address] MCHC 33 X10 3 Normal 32 - 36 [facility] Comment on above: Performed By: #### 2 52503 #### [facility],[address] [place], [place] [address] MCV (RBC) [Entitic vol] 76 fL Low 80 - 99 [facility] Comment on above: Performed By: #### 2 16188 #### [facility],[address] [place] [address] Rains # 0.58 x10EE3/UL Normal 0.20 - 1.00 [facility] Comment on above: Performed By: #### 2 04142 #### [facility],[address] [place] [address] 69942 MONOS 2 % Normal 0 - 10 [facility] Comment on above: Performed By: #### 2 67366 #### [facility],[address] [place] [address] 51640 MONOS % 8.7 % Normal 0.0 - 10.0 [facility] Comment on above: Performed By: #### 2 72354 #### [facility],[address] [place] [address] 55312 Morphology David (Bld) [Interp] NORMAL Normal [facility] Comment on above: Result Comment: ==== FOLLOWING RESULTS REPORTED IN ERROR MANUAL DIFF N/A MORPHOLOGY N/A Performed By: #### 2 79409 #### [facility],[address] [place] [address] 96034 Neut # 2.32 x10EE3/UL Normal 1.50 - 7.10 [facility] Comment on above: Performed By: #### 2 02084 #### [facility],[address] [place] [address] 90113 Neutrophils/100 WBC (Bld) 34.9 % Low 46.0 - 76.0 [facility] Comment on above: Performed By: #### 2 31611 #### [facility],[address] [place] [address] 65817 PLATELET 451 x10EE3/UL High 150 - 450 [facility] Comment on above: Performed By: #### 2 86072 #### [facility],[address] [place] [address] 58640 Platelet mean volume (Bld) [Entitic vol] 9.2 fL Normal 6.6 - 10.5 [facility] Comment on above: Result Comment: AUTO MATED DIFFERENTIAL Performed By: #### 2 26762 #### [facility],[address] [place] [address] 63362 RBC 3.48 x 10EE6/UL Low 4.10 - 5.30 [facility] Comment on above: Performed By: #### 2 35822 #### [facility],[address] [place] [address] SEGS 44 % Low 46 - 76 [facility] Comment on above: Performed By: #### 2 48335 #### [facility],[address] [place] [address] 32385 WBC 6.6 x 10EE3/UL Normal 4.5 - 10.8 [facility] Comment on above: Performed By: #### 2 78908 #### [facility],[address] [place], [place] [address] CMP with eGFRon 05-27-2024 AGE 54 years Normal [facility] Comment on above: Performed By: #### 2 80740 #### [facility],[address] [place] [address] 47427 Albumin [Mass/Vol] 2.8 g/dL Low 3.4 - 5.0 [facility] Comment on above: Performed By: #### 2 77445 #### [facility],[address] [place] [address] 28028 Albumin/Globulin [Mass ratio] 0.7 {ratio} Low 0.9 - 1.6 [facility] Comment on above: Performed By: #### 2 04263 #### [facility],[address] [place] [address] 15089 ALK PHOS 152 U/L High 46 - 116 [facility] Comment on above: Performed By: #### 2 92598 #### [facility],[address] [place] [address] 76425 ALT [Catalytic activity/Vol] 29 U/L Normal 16 - 63 [facility] Comment on above: Performed By: #### 2 71077 #### [facility],[address] [place] [address] 64648 Anion gap [Moles/Vol] 9 mmol/L Low 10 - 20 [facility] Comment on above: Performed By: #### 2 76316 #### [facility],[address] [place] [address] 92649 AST [Catalytic activity/Vol] 33 U/L Normal 13 - 39 [facility] Comment on above: Performed By: #### 2 98952 #### [facility],[address] [place] [address] 02271 B/C RATIO 12 ratio Normal 0 - 30 [facility] Comment on above: Performed By: #### 2 38845 #### [facility],[address] [place] [address] 10338 Bilirubin [Mass/Vol] 0.2 mg/dL Normal 0.2 - 1.0 [facility] Comment on above: Performed By: #### 2 07009 #### [facility],[address] [place] [address] 56763 Calcium [Mass/Vol] 8.9 mg/dL Normal 8.5 - 10.1 [facility] Comment on above: Performed By: #### 2 77138 #### [facility],[address] [place] [address] 87570 Chloride [Moles/Vol] 100 mmol/L Normal 98 - 107 [facility] Comment on above: Performed By: #### 2 36675 #### [facility],[address] [place] [address] 48262 CMP with eGFR Normal [facility] Comment on above: Result Comment: COMP REHENSIVE METABOLIC PANEL Performed By: #### 2 86955 #### [facility],[address] [place] [address] 49596 CO2 [Moles/Vol] 30.9 mmol/L Normal 21.0 - 32.0 [facility] Comment on above: Performed By: #### 2 98287 #### [address] [address] Creatinine [Mass/Vol] 0.67 mg/dL Normal 0.55 - 1.02 [facility] Comment on above: Performed By: #### 2 90667 #### [facility],[address] [place] [address] 20163 GFR/1.73 sq M.predicted among non-blacks MDRD (S/P/Bld) [Vol rate/Area] mL/min/{1.73_m2} Normal 60 - 999 [facility] Comment on above: Performed By: #### 2 18339 #### [address] [address] Result Comment: ACCO RDING TO THE NATIONAL KIDNEY DISEASE EDUCATION PROGRAM(NKDE), A NORMAL eGFR IS A VALUE GREATER THAN OR EQUAL TO 60 ML/MIN/1.73 SQ METERS. CHRONIC KIDNEY DISEASE: <60mL/MIN/1.73 SQ METERS KIDNEY FAILURE: <15mL/MIN/1.73 SQ METERS THIS TEST SHOULD ONLY BE USED FOR PATIENTS 18 YEARS OF AGE AND OLDER. Globulin (S) [Mass/Vol] 4.2 g/dL High 1.5 - 3.8 [facility] Comment on above: Performed By: #### 2 63037 #### [address] [address] Glucose [Mass/Vol] 77 mg/dL Normal 74 - 106 [facility] Comment on above: Performed By: #### 2 56111 #### [address] [address] Potassium [Moles/Vol] 4.3 mmol/L Normal 3.5 - 5.1 [facility] Comment on above: Performed By: #### 2 21848 #### [facility],[address] [place] [address] 11426 Protein [Mass/Vol] 7.0 g/dL Normal 6.4 - 8.2 [facility] Comment on above: Performed By: #### 2 55029 #### [facility],[address] [place] [address] 34553 Sodium [Moles/Vol] 136 mmol/L Normal 136 - 145 [facility] Comment on above: Performed By: #### 2 74979 #### [facility],[address] [place] [address] 03719 Urea nitrogen [Mass/Vol] 8 mg/dL Normal 7 - 18 [facility] Comment on above: Performed By: #### 2 54168 #### [facility],[address] [place] [address] 27383 CK [CCL]on 05-21-2024 CK [Catalytic activity/Vol] 126 U/L Normal 42-196 [facility] Comment on above: Result Comment: [facility] [address] [place] [address] Emiliano Paec III, M.D. [id number] Performed By: #### 2 56252 #### [facility],[address] [place] [address] 07617 C-REACTIVE PROTEINon 025 CRP 8.36 mg/dl High 0.00 - 0.90 [facility] Comment on above: Performed By: #### 2 12090 #### [facility],[address] [place] [address] 81717 CBC + DIFFon 05-20-2024 Baso # 0.03 x10EE3/UL Normal 0.00 - 0.10 [facility] Comment on above: Performed By: #### 2 45697 #### [facility],[address] [place] [address] 99897 Basophils/100 WBC (Bld) 0.3 % Normal 0.0 - 2.0 [facility] Comment on above: Performed By: #### 2 12422 #### [facility],[address] [place] [address] 26707 CBC + DIFF Normal [facility] Comment on above: Result Comment: CBC- COMPLETE BLOOD COUNT Performed By: #### 2 83227 #### [facility],[address] [place] [address] 16272 EO # 0.70 x10EE3/UL High 0.00 - 0.50 [facility] Comment on above: Performed By: #### 2 24863 #### [facility],[address] [place] [address] 50242 Eosinophils/100 WBC (Bld) 8.2 % High 0.0 - 7.0 [facility] Comment on above: Performed By: #### 2 70475 #### [facility],[address] [place], [place] [address] Erythrocyte distribution width (RBC) [Ratio] 18.1 % High 12.0 - 15.6 [facility] Comment on above: Performed By: #### 2 55901 #### [facility],[address] [place] [address] 69542 Hematocrit (Bld) [Volume fraction] 25.0 % Low 34.0 - 46.0 [facility] Comment on above: Performed By: #### 2 50241 #### [facility],[address] [place] [address] 32564 Hemoglobin (Bld) [Mass/Vol] 8.1 g/dL Low 12.0 - 16.0 [facility] Comment on above: Performed By: #### 2 70611 #### [facility],[address] [place] [address] 32568 Lymph # 3.10 x10EE3/UL High 0.80 - 2.80 [facility] Comment on above: Performed By: #### 2 98325 #### [facility],[address] [place] [address] 92881 Lymphocytes/100 WBC (Bld) 36.2 % Normal 20.0 - 45.0 [facility] Comment on above: Performed By: #### 2 67798 #### [facility],[address] [place] [address] MANUAL DIFF N/A Normal [facility] Comment on above: Performed By: #### 2 68355 #### [facility],[address] [place] [address] MCH (RBC) [Entitic mass] 25 pg Low 27 - 33 [facility] Comment on above: Performed By: #### 2 38267 #### [facility],[address] [place] [address] MCHC 32 X10 3 Normal 32 - 36 [facility] Comment on above: Performed By: #### 2 16915 #### [place] [address] MCV (RBC) [Entitic vol] 79 fL Low 80 - 99 [facility] Comment on above: Performed By: #### 2 77588 #### [facility],[address] [place] [address] Rains # 0.86 x10EE3/UL Normal 0.20 - 1.00 [facility] Comment on above: Performed By: #### 2 03873 #### [facility],[address] [place] [address] MONOS % 10.1 % High 0.0 - 10.0 [facility] Comment on above: Performed By: #### 2 64335 #### [address] [address] Morphology David (Bld) [Interp] N/A Normal [facility] Comment on above: Performed By: #### 2 31497 #### [facility],[address] [place] [address] Neut # 3.88 x10EE3/UL Normal 1.50 - 7.10 [facility] Comment on above: Performed By: #### 2 72566 #### [facility],[address] [place] [address] 85684 Neutrophils/100 WBC (Bld) 45.2 % Low 46.0 - 76.0 [facility] Comment on above: Performed By: #### 2 25786 #### [facility],[address] [place] [address] 95667 PLATELET 533 x10EE3/UL High 150 - 450 [facility] Comment on above: Performed By: #### 2 73494 #### [facility],[address] [place] [address] 01247 Platelet mean volume (Bld) [Entitic vol] 9.2 fL Normal 6.6 - 10.5 [facility] Comment on above: Result Comment: AUTO MATED DIFFERENTIAL Performed By: #### 2 61751 #### [facility],[address] [place] [address] 07902 RBC 3.18 x 10EE6/UL Low 4.10 - 5.30 [facility] Comment on above: Performed By: #### 2 37481 #### [facility],[address] [place] [address] 78186 WBC 8.6 x 10EE3/UL Normal 4.5 - 10.8 [facility] Comment on above: Performed By: #### 2 41216 #### [facility],[address] [place] [address] 08256 CMP with eGFRon 05-20-2024 AGE 54 years Normal [facility] Comment on above: Performed By: #### 2 42275 #### [facility],[address] [place] [address] 89992 Albumin [Mass/Vol] 2.7 g/dL Low 3.4 - 5.0 [facility] Comment on above: Performed By: #### 2 77843 #### [facility],[address] [place] [address] 43116 Albumin/Globulin [Mass ratio] 0.7 {ratio} Low 0.9 - 1.6 [facility] Comment on above: Performed By: #### 2 47648 #### [facility],[address] [place] [address] 29588 ALK PHOS 151 U/L High 46 - 116 [facility] Comment on above: Performed By: #### 2 57008 #### [facility],[address] [place], [place] [address] ALT [Catalytic activity/Vol] 29 U/L Normal 16 - 63 [facility] Comment on above: Performed By: #### 2 22492 #### [facility],[address] [place] [address] Anion gap [Moles/Vol] 11 mmol/L Normal 10 - 20 [facility] Comment on above: Performed By: #### 2 25578 #### [facility],[address] [place], [place] [address] AST [Catalytic activity/Vol] 25 U/L Normal 13 - 39 [facility] Comment on above: Performed By: #### 2 22176 #### [facility],[address] [place], [place] [address] B/C RATIO 13 ratio Normal 0 - 30 [facility] Comment on above: Performed By: #### 2 09967 #### [facility],[address] [place] [address] 15637 Bilirubin [Mass/Vol] 0.2 mg/dL Normal 0.2 - 1.0 [facility] Comment on above: Performed By: #### 2 74257 #### [facility],[address] [place] [address] 92682 Calcium [Mass/Vol] 8.4 mg/dL Low 8.5 - 10.1 [facility] Comment on above: Performed By: #### 2 20672 #### [facility],[address] [place] [address] 00770 Chloride [Moles/Vol] 100 mmol/L Normal 98 - 107 [facility] Comment on above: Performed By: #### 2 49510 #### [facility],[address] [place] [address] 27105 CMP with eGFR Normal [facility] Comment on above: Result Comment: COMP REHENSIVE METABOLIC PANEL Performed By: #### 2 91936 #### [place] [address] CO2 [Moles/Vol] 25.4 mmol/L Normal 21.0 - 32.0 [facility] Comment on above: Performed By: #### 2 03376 #### [facility],[address] [place] [address] Creatinine [Mass/Vol] 0.71 mg/dL Normal 0.55 - 1.02 [facility] Comment on above: Performed By: #### 2 91112 #### [facility],[address] [place], [place] [address] GFR/1.73 sq M.predicted among non-blacks MDRD (S/P/Bld) [Vol rate/Area] mL/min/{1.73_m2} Normal 60 - 999 [facility] Comment on above: Performed By: #### 2 37789 #### [place] [address] Result Comment: ACCO RDING TO THE NATIONAL KIDNEY DISEASE EDUCATION PROGRAM(NKDE), A NORMAL eGFR IS A VALUE GREATER THAN OR EQUAL TO 60 ML/MIN/1.73 SQ METERS. CHRONIC KIDNEY DISEASE: <60mL/MIN/1.73 SQ METERS KIDNEY FAILURE: <15mL/MIN/1.73 SQ METERS THIS TEST SHOULD ONLY BE USED FOR PATIENTS 18 YEARS OF AGE AND OLDER. Globulin (S) [Mass/Vol] 4.0 g/dL High 1.5 - 3.8 [facility] Comment on above: Performed By: #### 2 65503 #### [place] [id number] Glucose [Mass/Vol] 88 mg/dL Normal 74 - 106 [facility] Comment on above: Performed By: #### 2 42054 #### [facility],[address] [place] [address] 63144 Potassium [Moles/Vol] 4.3 mmol/L Normal 3.5 - 5.1 [facility] Comment on above: Performed By: #### 2 63836 #### [facility],[address] [place] [address] 17823 Protein [Mass/Vol] 6.7 g/dL Normal 6.4 - 8.2 [facility] Comment on above: Performed By: #### 2 94178 #### [facility],[address] [place] [address] 87222 Sodium [Moles/Vol] 132 mmol/L Low 136 - 145 [facility] Comment on above: Performed By: #### 2 65865 #### [facility],[address] [place] [address] 49513 Urea nitrogen [Mass/Vol] 9 mg/dL Normal 7 - 18 [facility] Comment on above: Performed By: #### 2 54288 #### [facility],[address] [place] [address] 90275 CULTURE CATHETER TIP [AULTMA N]on 05-19-2024 CULTURE CATHETER TIP [EFRA] CULTURE CATHETER TIP [EFRA] _CATHETER TIP CULTURE_ GO TO [facility] REPORTS AND ATTACHMENTS FOR SCANNED REPORT 05/24/[id number].DNP.COMPLET E Normal [facility] Comment on above: Performed By: #### 2 66986 #### [address] [address] CPKon 05-14-2024 CPK Normal [facility] Comment on above: Result Comment: SEE SCANNED REPORT Performed By: #### 2 01713 #### [facility],[address] [place] [address] 07623 C-REACTIVE PROTEINon 025 CRP 3.67 mg/dl High 0.00 - 0.90 [facility] Comment on above: Performed By: #### 2 31121 #### [facility],[address] [place] [address] 48397 CBC + DIFFon 05-13-2024 Baso # 0.02 x10EE3/UL Normal 0.00 - 0.10 [facility] Comment on above: Performed By: #### 2 47348 #### [facility],[address] [place] [address] 93670 Basophils/100 WBC (Bld) 0.3 % Normal 0.0 - 2.0 [facility] Comment on above: Performed By: #### 2 30195 #### [facility],[address] [place] [address] 16234 CBC + DIFF Normal [facility] Comment on above: Result Comment: CBC- COMPLETE BLOOD COUNT Performed By: #### 2 19520 #### [facility],[address] [place] [address] 92190 EO # 0.70 x10EE3/UL High 0.00 - 0.50 [facility] Comment on above: Performed By: #### 2 51416 #### [facility],[address] [place] [address] 95158 Eosinophils/100 WBC (Bld) 8.9 % High 0.0 - 7.0 [facility] Comment on above: Performed By: #### 2 94461 #### [facility],[address] [place] [address] 95180 Erythrocyte distribution width (RBC) [Ratio] 19.2 % High 12.0 - 15.6 [facility] Comment on above: Performed By: #### 2 87188 #### [facility],[address] [place] [address] 88012 Hematocrit (Bld) [Volume fraction] 28.0 % Low 34.0 - 46.0 [facility] Comment on above: Performed By: #### 2 88039 #### [facility],[address] [place] [address] 36502 Hemoglobin (Bld) [Mass/Vol] 8.4 g/dL Low 12.0 - 16.0 [facility] Comment on above: Performed By: #### 2 00226 #### [facility],[address] [place], [place] [address] Lymph # 2.57 x10EE3/UL Normal 0.80 - 2.80 [facility] Comment on above: Performed By: #### 2 13703 #### [facility],[address] [place], [place] [address] Lymphocytes/100 WBC (Bld) 32.4 % Normal 20.0 - 45.0 [facility] Comment on above: Performed By: #### 2 25658 #### [facility],[address] [place], [place] [address] MANUAL DIFF N/A Normal [facility] Comment on above: Performed By: #### 2 10848 #### [facility],[address] [place] [address] 86638 MCH (RBC) [Entitic mass] 24 pg Low 27 - 33 [facility] Comment on above: Performed By: #### 2 92059 #### [facility],[address] [place] [address] 11679 MCHC 30 X10 3 Low 32 - 36 [facility] Comment on above: Performed By: #### 2 43316 #### [facility],[address] [place] [address] 57973 MCV (RBC) [Entitic vol] 81 fL Normal 80 - 99 [facility] Comment on above: Performed By: #### 2 01247 #### [facility],[address] [place] [address] 14201 Rains # 0.56 x10EE3/UL Normal 0.20 - 1.00 [facility] Comment on above: Performed By: #### 2 25304 #### [facility],[address] [place] [address] 37066 MONOS % 7.1 % Normal 0.0 - 10.0 [facility] Comment on above: Performed By: #### 2 83019 #### [facility],[address] [place] [address] 38499 Morphology David (Bld) [Interp] N/A Normal [facility] Comment on above: Performed By: #### 2 72820 #### [facility],[address] [place] [address] 15805 Neut # 4.08 x10EE3/UL Normal 1.50 - 7.10 [facility] Comment on above: Performed By: #### 2 67321 #### [facility],[address] [place] [address] 42265 Neutrophils/100 WBC (Bld) 51.4 % Normal 46.0 - 76.0 [facility] Comment on above: Performed By: #### 2 76274 #### [facility],[address] [place] [address] 94866 PLATELET 562 x10EE3/UL High 150 - 450 [facility] Comment on above: Performed By: #### 2 22048 #### [facility],[address] [place] [address] 34969 Platelet mean volume (Bld) [Entitic vol] 9.1 fL Normal 6.6 - 10.5 [facility] Comment on above: Result Comment: AUTO MATED DIFFERENTIAL Performed By: #### 2 78872 #### [facility],[address] [place] [address] 56900 RBC 3.47 x 10EE6/UL Low 4.10 - 5.30 [facility] Comment on above: Performed By: #### 2 46468 #### [facility],[address] [place] [address] 89237 WBC 7.9 x 10EE3/UL Normal 4.5 - 10.8 [facility] Comment on above: Performed By: #### 2 04624 #### [facility],[address] [place] [address] 75464 CMP with eGFRon 05-13-2024 AGE 54 years Normal [facility] Comment on above: Performed By: #### 2 34870 #### [facility],[address] [place] [address] 34949 Albumin [Mass/Vol] 2.6 g/dL Low 3.4 - 5.0 [facility] Comment on above: Performed By: #### 2 94246 #### [facility],[address] [place] [address] 32780 Albumin/Globulin [Mass ratio] 0.6 {ratio} Low 0.9 - 1.6 [facility] Comment on above: Performed By: #### 2 87600 #### [facility],[address] [place] [address] 99249 ALK PHOS 121 U/L High 46 - 116 [facility] Comment on above: Performed By: #### 2 14024 #### [facility],[address] [place] [address] 16412 ALT [Catalytic activity/Vol] 23 U/L Normal 16 - 63 [facility] Comment on above: Performed By: #### 2 19563 #### [facility],[address] [place] [address] 13567 Anion gap [Moles/Vol] 10 mmol/L Normal 10 - 20 [facility] Comment on above: Performed By: #### 2 56921 #### [facility],[address] [place] [address] 22642 AST [Catalytic activity/Vol] 18 U/L Normal 13 - 39 [facility] Comment on above: Performed By: #### 2 34459 #### [facility],[address] [place] [address] 34949 B/C RATIO 15 ratio Normal 0 - 30 [facility] Comment on above: Performed By: #### 2 74441 #### [facility],[address] [place] [address] 98464 Bilirubin [Mass/Vol] 0.2 mg/dL Normal 0.2 - 1.0 [facility] Comment on above: Performed By: #### 2 84105 #### [facility],[address] [place] [address] 36038 Calcium [Mass/Vol] 8.4 mg/dL Low 8.5 - 10.1 [facility] Comment on above: Performed By: #### 2 31022 #### [facility],[address] [place], [place] [id number] Chloride [Moles/Vol] 100 mmol/L Normal 98 - 107 [facility] Comment on above: Performed By: #### 2 47607 #### [facility],[address] [place] [address] CMP with eGFR Normal [facility] Comment on above: Result Comment: COMP REHENSIVE METABOLIC PANEL Performed By: #### 2 67615 #### [facility],[address] [place] [address] 39096 CO2 [Moles/Vol] 27.1 mmol/L Normal 21.0 - 32.0 [facility] Comment on above: Performed By: #### 2 91486 #### [facility],[address] [place] [address] 55229 Creatinine [Mass/Vol] 0.92 mg/dL Normal 0.55 - 1.02 [facility] Comment on above: Performed By: #### 2 14816 #### [address] [address] GFR/1.73 sq M.predicted among non-blacks MDRD (S/P/Bld) [Vol rate/Area] mL/min/{1.73_m2} Normal 60 - 999 [facility] Comment on above: Performed By: #### 2 57235 #### [facility],[address] [place] [address] Result Comment: ACCO RDING TO THE NATIONAL KIDNEY DISEASE EDUCATION PROGRAM(NKDE), A NORMAL eGFR IS A VALUE GREATER THAN OR EQUAL TO 60 ML/MIN/1.73 SQ METERS. CHRONIC KIDNEY DISEASE: <60mL/MIN/1.73 SQ METERS KIDNEY FAILURE: <15mL/MIN/1.73 SQ METERS THIS TEST SHOULD ONLY BE USED FOR PATIENTS 18 YEARS OF AGE AND OLDER. Globulin (S) [Mass/Vol] 4.2 g/dL High 1.5 - 3.8 [facility] Comment on above: Performed By: #### 2 22670 #### [place] [address] Glucose [Mass/Vol] 84 mg/dL Normal 74 - 106 [facility] Comment on above: Performed By: #### 2 19320 #### [place] [address] Potassium [Moles/Vol] 4.4 mmol/L Normal 3.5 - 5.1 [facility] Comment on above: Performed By: #### 2 62035 #### [place] [address] Protein [Mass/Vol] 6.8 g/dL Normal 6.4 - 8.2 [facility] Comment on above: Performed By: #### 2 56103 #### [address] [address] Sodium [Moles/Vol] 133 mmol/L Low 136 - 145 [facility] Comment on above: Performed By: #### 2 32592 #### [place] [id number] Urea nitrogen [Mass/Vol] 14 mg/dL Normal 7 - 18 [facility] Comment on above: Performed By: #### 2 25109 #### [place] [id number] CBC panel Auto (Bld)on 05-12 Erythrocyte distribution width (RBC) [Ratio] 20.3 % High 11.5 - 14.5 % [facility] Hematocrit (Bld) [Volume fraction] 25.7 % Low 36.0 - 46.0 % [facility] Hemoglobin (Bld) [Mass/Vol] 7.7 g/dL Low 12.0 - 16.0 g/dL [facility] Interpretation and review of laboratory results Abnormal [facility] MCH (RBC) [Entitic mass] 24.9 pg Low 26.0 - 34.0 pg [facility] MCHC (RBC) [Mass/Vol] 30 g/dL Low 32.0 - 36.0 g/dL [facility] MCV (RBC) [Entitic vol] 83 fL 80 - 100 fL [facility] Nucleated RBC/100 WBC (Bld) [Ratio] 1 % High [facility] Platelets (Bld) [#/Vol] 457 10*3/uL High [facility] RBC (Bld) [#/Vol] 3.09 10*6/uL [facility] WBC (Bld) [#/Vol] 7.8 10*3/uL [facility] Erythrocyte distribution width (RBC) [Ratio] 20.3 % High 11.5-14.5 [facility] Comment on above: Performed By: #### 5 8410-2 ####JANETH Galo ([id number])[facility] ([facility])[address] [place] [address] Hematocrit (Bld) [Volume fraction] 25.7 % Low 36.0-46.0 [facility] Comment on above: Performed By: #### 5 8410-2 ####JANETH Galo ([id number])[facility] ([facility])[address] [place] [address] Hemoglobin (Bld) [Mass/Vol] 7.7 g/dL Low 12.0-16.0 [facility] Comment on above: Performed By: #### 5 8410-2 ####JANETH Galo ([id number])[facility] ([facility])[address] [place] [address] MCH (RBC) [Entitic mass] 24.9 pg Low 26.0-34.0 [facility] Comment on above: Performed By: #### 5 8410-2 ####JANETH Galo ([id number])[facility] ([facility])[address] [place] [address] MCHC (RBC) [Mass/Vol] 30.0 g/dL Low 32.0-36.0 [facility] Comment on above: Performed By: #### 5 8410-2 ####JANETH Galo ([id number])[facility] ([facility])[address] [place] [address] MCV (RBC) [Entitic vol] 83 fL Normal 80-100 [facility] Comment on above: Performed By: #### 5 8410-2 ####JANETH Galo ([id number])[facility] ([facility])[address] [place] [address] Nucleated RBC/100 WBC (Bld) [Ratio] 1.0 /100 WBCs High 0.0-0.0 [facility] Comment on above: Performed By: #### 5 8410-2 ####JANETH Galo ([id number])[facility] ([facility])[address] [place] [address] Platelets (Bld) [#/Vol] 457 x10*3/uL High 150-450 [facility] Comment on above: Performed By: #### 5 8410-2 ####JANETH Galo ([id number])[facility] ([facility])[address] [place] [address] RBC (Bld) [#/Vol] 3.09 x10*6/uL Low 4.00-5.20 [facility] Comment on above: Performed By: #### 5 8410-2 ####JANETH Galo (48041)[facility] ([facility])[address] [place] [address] WBC (Bld) [#/Vol] 7.8 x10*3/uL Normal 4.4-11.3 [facility] Comment on above: Performed By: #### 5 8410-2 ####JANETH Galo ([id number])[facility] ([facility])[address] [place] [address] Comprehensive metabolic 2000 panelon 05-12-2024 Albumin BCP dye [Mass/Vol] 3.1 g/dL Low 3.4 - 5.0 g/dL [facility] ALP [Catalytic activity/Vol] 93 U/L 33 - 110 U/L [facility] ALT With P-5'-P [Catalytic activity/Vol] 12 U/L 7 - 45 U/L [facility] Anion gap [Moles/Vol] 12 mmol/L 10 - 2 0 mmol/L [facility] AST With P-5'-P [Catalytic activity/Vol] 15 U/L 9 - 39 U/L [facility] Bilirubin [Mass/Vol] 0.2 mg/dL 0.0 - 1 .2 mg/dL [facility] Calcium [Mass/Vol] 8.7 mg/dL 8.6 - 10. 6 mg/dL [facility] Chloride [Moles/Vol] 101 mmol/L 98 - 10 7 mmol/L [facility] CO2 [Moles/Vol] 24 mmol/L 21 - 32 mmol/L [facility] Creatinine [Mass/Vol] 0.82 mg/dL 0.50 - 1.05 mg/dL [facility] GFR/1.73 sq M.predicted among non-blacks MDRD (S/P/Bld) [Vol rate/Area] 86 mL/min/{1.73_m2} - PINF [facility] Glucose [Mass/Vol] 105 mg/dL High 74 - 99 mg/dL [facility] Interpretation and review of laboratory results Abnormal [facility] Potassium [Moles/Vol] 4.6 mmol/L 3.5 - 5.3 mmol/L [facility] Protein [Mass/Vol] 6.3 g/dL Low 6.4 - 8.2 g/dL [facility] Sodium [Moles/Vol] 132 mmol/L Low 136 - 145 mmol/L [facility] Urea nitrogen [Mass/Vol] 14 mg/dL 6 - 23 mg/dL [facility] Albumin BCP dye [Mass/Vol] 3.1 g/dL Low 3.4-5.0 [facility] Comment on above: Performed By: #### 2 4323-8 ####JANETH Galo ([id number])[facility] ([facility])[address] [place] [address] ALP [Catalytic activity/Vol] 93 U/L Normal 33-110 [facility] Comment on above: Performed By: #### 2 4323-8 ####JANETH Galo ([id number])[facility] ([facility])[address] [place] [address] ALT With P-5'-P [Catalytic activity/Vol] 12 U/L Normal 7-45 [facility] Comment on above: Result Comment: Tomasa ents treated with Sulfasalazine may generate falsely decreased results for ALT. Performed By: #### 2 4323-8 ####JANETH Galo ([id number])[facility] ([facility])[address] [place] [address] Anion gap [Moles/Vol] 12 mmol/L Normal 10-20 [facility] Comment on above: Performed By: #### 2 1803-8 ####JANETH Galo ([id number])[facility] ([facility])[address] [place] [address] AST With P-5'-P [Catalytic activity/Vol] 15 U/L Normal 9-39 [facility] Comment on above: Performed By: #### 2 4243-8 ####JANETH Galo ([id number])[facility] ([facility])[address] [place] [address] Bilirubin [Mass/Vol] 0.2 mg/dL Normal 0.0-1.2 [facility] Comment on above: Performed By: #### 2 4323-8 ####JANETH RANGELER L ([id number])[facility] ([facility])[address] [place] [address] Calcium [Mass/Vol] 8.7 mg/dL Normal 8.6-10.6 [facility] Comment on above: Performed By: #### 2 4323-8 ####JANETH CONNORMOTZER L ([id number])[facility] ([facility])[address] [place] [address] Chloride [Moles/Vol] 101 mmol/L Normal 98-107 [facility] Comment on above: Performed By: #### 2 4323-8 ####JANETH CONNORMOTZER L ([id number])[facility] ([facility])[address] [place] [address] CO2 [Moles/Vol] 24 mmol/L Normal 21-32 [facility] Comment on above: Performed By: #### 2 4323-8 ####JANETH CONNORMOPIEDADER L ([id number])[facility] ([facility])[address] [place] [address] Creatinine [Mass/Vol] 0.82 mg/dL Normal 0.50-1.05 [facility] Comment on above: Performed By: #### 2 4323-8 ####JANETH CONNORMOTZER L ([id number])[facility] ([facility])[address] [place] [address] Glomerular filtration rate/1.73 sq M.predicted 86 mL/min/1.73m*2 Normal >60 [facility] Comment on above: Result Comment: Calc ulations of estimated GFR are performed using the 2020 CKD-EPI Study Refit equation without the race variable for the IDMS-Traceable creatinine methods.https://jasn.asnjournals.org/content/early/ N.7523286367 Performed By: #### 2 4323-8 ####JANETH CONNORMOTZER L ([id number])[facility] ([facility])[address] [place] [address] Glucose [Mass/Vol] 105 mg/dL High 74-99 [facility] Comment on above: Performed By: #### 2 4323-8 ####JANETH Galo ([id number])[facility] ([facility])[address] [place] [address] Potassium [Moles/Vol] 4.6 mmol/L Normal 3.5-5.3 [facility] Comment on above: Performed By: #### 2 4323-8 ####JANETH Galo ([id number])[facility] ([facility])[address] [place] [address] Protein [Mass/Vol] 6.3 g/dL Low 6.4-8.2 [facility] Comment on above: Performed By: #### 2 4323-8 ####JANETH Galo ([id number])[facility] ([facility])[address] [place] [address] Sodium [Moles/Vol] 132 mmol/L Low 136-145 [facility] Comment on above: Performed By: #### 2 4323-8 ####JAENTH Galo ([id number])[facility] ([facility])[address] [place] [address] Urea nitrogen [Mass/Vol] 14 mg/dL Normal 6-23 [facility] Comment on above: Performed By: #### 2 4323-8 ####JANETH Galo ([id number])[facility] ([facility])[id number] [place] [address] Bedside Midline Imagingon IMAGING CBC W Auto Differential pane l (Bld)on 05-11-2024 Basophils (Bld) [#/Vol] 0.09 10*3/uL [facility] Basophils/100 WBC (Bld) 1.1 % 0.0 - 2.0 % [facility] Eosinophils (Bld) [#/Vol] 0.7 10*3/uL [facility] Eosinophils/100 WBC (Bld) 8.5 % 0.0 - 6.0 % [facility] Erythrocyte distribution width (RBC) [Ratio] 19.9 % High 11.5 - 14.5 % [facility] Hematocrit (Bld) [Volume fraction] 26.8 % Low 36.0 - 46.0 % [facility] Hemoglobin (Bld) [Mass/Vol] 7.9 g/dL Low 12.0 - 16.0 g/dL [facility] Immature granulocytes (Bld) [#/Vol] 0.03 10*3/uL [facility] Immature granulocytes/100 WBC (Bld) 0.4 % 0.0 - 0.9 % [facility] Interpretation and review of laboratory results Abnormal [facility] Lymphocytes (Bld) [#/Vol] 2.91 10*3/uL [facility] Lymphocytes/100 WBC (Bld) 35.5 % 13.0 - 44.0 % [facility] MCH (RBC) [Entitic mass] 23.9 pg Low 26.0 - 34.0 pg [facility] MCHC (RBC) [Mass/Vol] 29.5 g/dL Low 32.0 - 36.0 g/dL [facility] MCV (RBC) [Entitic vol] 81 fL 80 - 100 fL [facility] Monocytes (Bld) [#/Vol] 0.63 10*3/uL [facility] Monocytes/100 WBC (Bld) 7.7 % 2.0 - 10.0 % [facility] Neutrophils (Bld) [#/Vol] 3.83 10*3/uL [facility] Neutrophils/100 WBC (Bld) 46.8 % 40.0 - 80.0 % [facility] Nucleated RBC/100 WBC (Bld) [Ratio] 0.9 % High [facility] Platelets (Bld) [#/Vol] 492 10*3/uL High [facility] RBC (Bld) [#/Vol] 3.3 10*6/uL Low [facility] WBC (Bld) [#/Vol] 8.2 10*3/uL [facility] Basophils (Bld) [#/Vol] 0.09 x10*3/uL Normal 0.00-0.10 [facility] Comment on above: Performed By: #### 5 7021-8 ####JANETH Galo ([id number])[facility] ([facility])[address] [place] [address] Basophils/100 WBC (Bld) 1.1 % Normal 0.0-2.0 [facility] Comment on above: Performed By: #### 5 7021-8 ####JANETH Galo ([id number])[facility] ([facility])[id number] [place] [address] Eosinophils (Bld) [#/Vol] 0.70 x10*3/uL Normal 0.00-0.70 [facility] Comment on above: Performed By: #### 5 7021-8 ####JANETH Galo ([id number])[facility] ([facility])[id number] [place] [address] Eosinophils/100 WBC (Bld) 8.5 % Normal 0.0-6.0 [facility] Comment on above: Performed By: #### 5 7021-8 ####JANETH Galo ([id number])[facility] ([facility])[id number] [place] [address] Erythrocyte distribution width (RBC) [Ratio] 19.9 % High 11.5-14.5 [facility] Comment on above: Performed By: #### 5 7021-8 ####JANETH Galo ([id number])[facility] ([facility])[id number] [place] [address] Hematocrit (Bld) [Volume fraction] 26.8 % Low 36.0-46.0 [facility] Comment on above: Performed By: #### 5 7021-8 ####JANETH Galo ([id number])[facility] ([facility])[id number] [place] [address] Hemoglobin (Bld) [Mass/Vol] 7.9 g/dL Low 12.0-16.0 [facility] Comment on above: Performed By: #### 5 7021-8 ####JANETH Galo ([id number])[facility] ([facility])[address] [place] [address] Immature granulocytes (Bld) [#/Vol] 0.03 x10*3/uL Normal 0.00-0.70 [facility] Comment on above: Performed By: #### 5 7021-8 ####JANETH Galo ([id number])[facility] ([facility])[address] [place] [address] Immature granulocytes/100 WBC (Bld) 0.4 % Normal 0.0-0.9 [facility] Comment on above: Result Comment: Catrachita ture Granulocyte Count (IG) includes promyelocytes, myelocytes and metamyelocytes but does not include bands. Percent differential counts (%) should be interpreted in the context of the absolute cell counts (cells/UL). Performed By: #### 5 7021-8 ####JANETH Galo ([id number])[facility] ([facility])[address] [place] [address] Lymphocytes (Bld) [#/Vol] 2.91 x10*3/uL Normal 1.20-4.80 [facility] Comment on above: Performed By: #### 5 7021-8 ####JANETH Galo ([id number])[facility] ([facility])[address] [place] [address] Lymphocytes/100 WBC (Bld) 35.5 % Normal 13.0-44.0 [facility] Comment on above: Performed By: #### 5 7021-8 ####JANETH Galo ([id number])[facility] ([facility])[address] [place] [address] MCH (RBC) [Entitic mass] 23.9 pg Low 26.0-34.0 [facility] Comment on above: Performed By: #### 5 7021-8 ####JANETH Galo ([id number])[facility] ([facility])[address] [place] [address] MCHC (RBC) [Mass/Vol] 29.5 g/dL Low 32.0-36.0 [facility] Comment on above: Performed By: #### 5 7021-8 ####JANETH Galo ([id number])[facility] ([facility])[address] [place] [address] MCV (RBC) [Entitic vol] 81 fL Normal 80-100 [facility] Comment on above: Performed By: #### 5 7021-8 ####JANETH Galo ([id number])[facility] ([facility])[address] [place] [address] Monocytes (Bld) [#/Vol] 0.63 x10*3/uL Normal 0.10-1.00 [facility] Comment on above: Performed By: #### 5 7021-8 ####JANETH Galo ([id number])[facility] ([facility])[address] [place] [address] Monocytes/100 WBC (Bld) 7.7 % Normal 2.0-10.0 [facility] Comment on above: Performed By: #### 5 7021-8 ####JANETH Galo ([id number])[facility] ([facility])[address] [place] [address] Neutrophils (Bld) [#/Vol] 3.83 x10*3/uL Normal 1.20-7.70 [facility] Comment on above: Result Comment: Perc ent differential counts (%) should be interpreted in the context of the absolute cell counts (cells/uL). Performed By: #### 5 7021-8 ####JANETH Galo ([id number])[facility] ([facility])[address] [place] [address] Neutrophils/100 WBC (Bld) 46.8 % Normal 40.0-80.0 [facility] Comment on above: Performed By: #### 5 7021-8 ####JANETH Galo ([id number])[facility] ([facility])[address] [place] [address] Nucleated RBC/100 WBC (Bld) [Ratio] 0.9 /100 WBCs High 0.0-0.0 [facility] Comment on above: Performed By: #### 5 7021-8 ####JANETH Galo ([id number])[facility] ([facility])[address] [place] [address] Platelets (Bld) [#/Vol] 492 x10*3/uL High 150-450 [facility] Comment on above: Performed By: #### 5 7021-8 ####JANETH Galo ([id number])[facility] ([facility])[address] [place] [address] RBC (Bld) [#/Vol] 3.30 x10*6/uL Low 4.00-5.20 [facility] Comment on above: Performed By: #### 5 7021-8 ####JANETH Galo ([id number])[facility] ([facility])[address] [place] [address] WBC (Bld) [#/Vol] 8.2 x10*3/uL Normal 4.4-11.3 [facility] Comment on above: Performed By: #### 5 7021-8 ####JANETH Galo ([id number])[facility] ([facility])[address] [place] [address] Comprehensive metabolic 2000 panelon 05-11-2024 Albumin BCP dye [Mass/Vol] 3.3 g/dL Low 3.4 - 5.0 g/dL [facility] ALP [Catalytic activity/Vol] 96 U/L 33 - 110 U/L [facility] ALT With P-5'-P [Catalytic activity/Vol] 12 U/L 7 - 45 U/L [facility] Anion gap [Moles/Vol] 15 mmol/L 10 - 2 0 mmol/L [facility] AST With P-5'-P [Catalytic activity/Vol] 17 U/L 9 - 39 U/L [facility] Bilirubin [Mass/Vol] 0.2 mg/dL 0.0 - 1 .2 mg/dL [facility] Calcium [Mass/Vol] 8.9 mg/dL 8.6 - 10. 6 mg/dL [facility] Chloride [Moles/Vol] 101 mmol/L 98 - 10 7 mmol/L [facility] CO2 [Moles/Vol] 23 mmol/L 21 - 32 mmol/L [facility] Creatinine [Mass/Vol] 0.8 mg/dL 0.50 - 1.05 mg/dL [facility] GFR/1.73 sq M.predicted among non-blacks MDRD (S/P/Bld) [Vol rate/Area] 89 mL/min/{1.73_m2} - PINF [facility] Glucose [Mass/Vol] 95 mg/dL 74 - 99 mg/dL [facility] Interpretation and review of laboratory results Abnormal [facility] Potassium [Moles/Vol] 4.9 mmol/L 3.5 - 5.3 mmol/L [facility] Protein [Mass/Vol] 6.7 g/dL 6.4 - 8.2 g/dL [facility] Sodium [Moles/Vol] 134 mmol/L Low 136 - 145 mmol/L [facility] Urea nitrogen [Mass/Vol] 12 mg/dL 6 - 23 mg/dL [facility] Albumin BCP dye [Mass/Vol] 3.3 g/dL Low 3.4-5.0 [facility] Comment on above: Performed By: #### 2 4323-8 ####JANETH Galo ([id number])[facility] ([facility])[address] [place] [address] ALP [Catalytic activity/Vol] 96 U/L Normal 33-110 [facility] Comment on above: Performed By: #### 2 4323-8 ####JANETH Galo ([id number])[facility] ([facility])[address] [place] [address] ALT With P-5'-P [Catalytic activity/Vol] 12 U/L Normal 7-45 [facility] Comment on above: Result Comment: Tomasa ents treated with Sulfasalazine may generate falsely decreased results for ALT. Performed By: #### 2 9153-8 ####JANETH Galo ([id number])[facility] ([facility])[address] [place] [address] Anion gap [Moles/Vol] 15 mmol/L Normal 10-20 [facility] Comment on above: Performed By: #### 2 4323-8 ####JANETH Galo ([id number])[facility] ([facility])[address] [place] [address] AST With P-5'-P [Catalytic activity/Vol] 17 U/L Normal 9-39 [facility] Comment on above: Performed By: #### 2 4323-8 ####JANETH Galo ([id number])[facility] ([facility])[address] [place] [address] Bilirubin [Mass/Vol] 0.2 mg/dL Normal 0.0-1.2 [facility] Comment on above: Performed By: #### 2 4323-8 ####JANETH Galo ([id number])[facility] ([facility])[address] [place] [address] Calcium [Mass/Vol] 8.9 mg/dL Normal 8.6-10.6 [facility] Comment on above: Performed By: #### 2 4323-8 ####JANETH Galo ([id number])[facility] ([facility])[address] [place] [address] Chloride [Moles/Vol] 101 mmol/L Normal 98-107 [facility] Comment on above: Performed By: #### 2 4323-8 ####JANETH GRAFF L ([id number])[facility] ([facility])[address] [place] [address] CO2 [Moles/Vol] 23 mmol/L Normal 21-32 [facility] Comment on above: Performed By: #### 2 4323-8 ####JANETH Galo ([id number])[facility] ([facility])[address] [place] [address] Creatinine [Mass/Vol] 0.80 mg/dL Normal 0.50-1.05 [facility] Comment on above: Performed By: #### 2 4323-8 ####JANETH Galo ([id number])[facility] ([facility])[address] [place] [address] Glomerular filtration rate/1.73 sq M.predicted 89 mL/min/1.73m*2 Normal >60 [facility] Comment on above: Result Comment: Calc ulations of estimated GFR are performed using the 2020 CKD-EPI Study Refit equation without the race variable for the IDMS-Traceable creatinine methods.https://jasn.asnjournals.org/content/early// N.1110256639 Performed By: #### 2 4323-8 ####JANETH Galo ([id number])[facility] ([facility])[address] [place] [address] Glucose [Mass/Vol] 95 mg/dL Normal 74-99 [facility] Comment on above: Performed By: #### 2 4323-8 ####JANETH Galo ([id number])[facility] ([facility])[address] [place] [address] Potassium [Moles/Vol] 4.9 mmol/L Normal 3.5-5.3 [facility] Comment on above: Performed By: #### 2 4323-8 ####JANETH Galo ([id number])[facility] ([facility])[address] [place] [address] Protein [Mass/Vol] 6.7 g/dL Normal 6.4-8.2 [facility] Comment on above: Performed By: #### 2 4323-8 ####JANETH GRAFF L ([id number])[facility] ([facility])[address] [place] [address] Sodium [Moles/Vol] 134 mmol/L Low 136-145 [facility] Comment on above: Performed By: #### 2 4323-8 ####JANETH Galo ([id number])[facility] ([facility])[address] [place] [address] Urea nitrogen [Mass/Vol] 12 mg/dL Normal 6-23 [facility] Comment on above: Performed By: #### 2 4323-8 ####JANETH Galo ([id number])[facility] ([facility])[address] [place] [address] Heparin Assay, UFHon 025 Heparin unfractionated Chromogenic method Qn (PPP) 0.5 See Comment Below for Therapeutic Ranges IU/mL [facility] Heparin unfractionated Chrom ogenic method Qn (PPP)on 05-11-2024 Interpretation and review of laboratory results Normal [facility] MIDLINE BEDSIDE IMAGINGon MIDLINE BEDSIDE IMAGING These images are not reportable by radiology and will not be interpreted by Radiologists. Normal [facility] Fungal Culture/SmearOrdered By: Pat Hernandez on 05-10-2024 Fungus identified Cx Nom (Unsp spec) 5 colonies Mendy parapsilosis Abnormal [facility] Fungus identified Cx Nom (Un sp spec)Ordered By: Pat Hernandez on 05-10-2024 Fungus identified Fungus stain Nom (Unsp spec) No fungal elements seen [facility] Interpretation and review of laboratory results Abnormal [facility] Heparin Assay, UFHon 025 Heparin unfractionated Chromogenic method Qn (PPP) 0.6 See Comment Below for Therapeutic Ranges IU/mL [facility] Heparin unfractionated Chromogenic method Qn (PPP) 0.2 See Comment Below for Therapeutic Ranges IU/mL [facility] Heparin unfractionated Chromogenic method Qn (PPP) 1 See Comment Below for Therapeutic Ranges IU/mL [facility] Heparin Assay, UFHOrdered By : Tennille Day on 05-10-2024 Heparin unfractionated Chromogenic method Qn (PPP) 0.6 See Comment Below for Therapeutic Ranges IU/mL [facility] Heparin unfractionated Chrom ogenic method Qn (PPP)on 05-10-2024 Interpretation and review of laboratory results Normal [facility] Interpretation and review of laboratory results Normal [facility] Interpretation and review of laboratory results Normal [facility] Heparin unfractionated Chrom ogenic method Qn (PPP)Ordered By: Tennille Day on 05-10-2024 Interpretation and review of laboratory results Normal [facility] Heparin.unfractionatedon Heparin unfractionated Chromogenic method Qn (PPP) 0.5 IU/mL Normal See Comment Below for Therapeutic Ranges [facility] Comment on above: Order Comment: Obtai [...] please refer to local Pharmacy and the [facility] Guidelines for Anticoagulation Therapy available on the [facility] intranet at: [email or web address]_Guidelines_[email or web address].aspx Performed By: #### 3 274-8 ####JANETH Galo ([id number])[facility] ([facility])[address] [place] [address] Heparin unfractionated Chromogenic method Qn (PPP) 0.6 IU/mL Normal See Comment Below for Therapeutic Ranges [facility] Comment on above: Order Comment: Obtai [...] please refer to local Pharmacy and the [facility] Guidelines for Anticoagulation Therapy available on the [facility] intranet at: [email or web address] Performed By: #### 3 274-8 ####JANETH Galo ([id number])[facility] ([facility])[address] [place] [address] Heparin unfractionated Chromogenic method Qn (PPP) 0.2 IU/mL Normal See Comment Below for Therapeutic Ranges [facility] Comment on above: Order Comment: Obtai [...] please refer to local Pharmacy and the [facility] Guidelines for Anticoagulation Therapy available on the [facility] intranet at: [email or web address] Performed By: #### 3 274-8 ####JANETH Galo ([id number])[facility] ([facility])[address] [place] [address] Heparin unfractionated Chromogenic method Qn (PPP) 0.6 IU/mL Normal See Comment Below for Therapeutic Ranges [facility] Comment on above: Order Comment: Obtai [...] please refer to local Pharmacy and the [facility] Guidelines for Anticoagulation Therapy available on the [facility] intranet at: [email or web address] Performed By: #### 3 274-8 ####JANETH Galo ([id number])[facility] ([facility])[address] [place], [place] [address] Heparin unfractionated Chromogenic method Qn (PPP) 1.0 IU/mL Normal See Comment Below for Therapeutic Ranges [facility] Comment on above: Order Comment: Obtai [...] please refer to local Pharmacy and the [facility] Guidelines for Anticoagulation Therapy available on the [facility] intranet at: [email or web address]_[email or web address].aspx Performed By: #### 3 274-8 ####JANETH Galo ([id number])[facility] ([facility])[address] [place] [address] Basic metabolic 2000 panelon 05-09-2024 Anion gap [Moles/Vol] 11 mmol/L 10 - 2 0 mmol/L [facility] Calcium [Mass/Vol] 8.7 mg/dL 8.6 - 10. 6 mg/dL [facility] Chloride [Moles/Vol] 102 mmol/L 98 - 10 7 mmol/L [facility] CO2 [Moles/Vol] 26 mmol/L 21 - 32 mmol/L [facility] Creatinine [Mass/Vol] 0.81 mg/dL 0.50 - 1.05 mg/dL [facility] GFR/1.73 sq M.predicted among non-blacks MDRD (S/P/Bld) [Vol rate/Area] 87 mL/min/{1.73_m2} - PINF [facility] Glucose [Mass/Vol] 96 mg/dL 74 - 99 mg/dL [facility] Interpretation and review of laboratory results Abnormal [facility] Potassium [Moles/Vol] 4.6 mmol/L 3.5 - 5.3 mmol/L [facility] Sodium [Moles/Vol] 134 mmol/L Low 136 - 145 mmol/L [facility] Urea nitrogen [Mass/Vol] 15 mg/dL 6 - 23 mg/dL [facility] Anion gap [Moles/Vol] 11 mmol/L Normal 10-20 [facility] Comment on above: Performed By: #### 2 4321-2 ####JANETH GRAFF L ([id number])[facility] ([facility])[address] [place] [address] Calcium [Mass/Vol] 8.7 mg/dL Normal 8.6-10.6 [facility] Comment on above: Performed By: #### 2 4321-2 ####JANETH RANGELER L ([id number])[facility] ([facility])[address] [place] [address] Chloride [Moles/Vol] 102 mmol/L Normal 98-107 [facility] Comment on above: Performed By: #### 2 4321-2 ####JANETH GRAFF L ([id number])[facility] ([facility])[address] [place] [address] CO2 [Moles/Vol] 26 mmol/L Normal 21-32 [facility] Comment on above: Performed By: #### 2 4321-2 ####JANETH GRAFF L ([id number])[facility] ([facility])[address] [place] [address] Creatinine [Mass/Vol] 0.81 mg/dL Normal 0.50-1.05 [facility] Comment on above: Performed By: #### 2 4321-2 ####JANETH MCDONALDTZLETI L ([id number])[facility] ([facility])[address] [place] [address] Glomerular filtration rate/1.73 sq M.predicted 87 mL/min/1.73m*2 Normal >60 [facility] Comment on above: Result Comment: Calc ulations of estimated GFR are performed using the 2020 CKD-EPI Study Refit equation without the race variable for the IDMS-Traceable creatinine methods.https://jasn.asnjournals.org/content/early// N.7669622197 Performed By: #### 2 4321-2 ####JANETH Galo ([id number])[facility] ([facility])[address] [place] [address] Glucose [Mass/Vol] 96 mg/dL Normal 74-99 [facility] Comment on above: Performed By: #### 2 4321-2 ####JANETH Galo ([id number])[facility] ([facility])[address] [place] [address] Potassium [Moles/Vol] 4.6 mmol/L Normal 3.5-5.3 [facility] Comment on above: Performed By: #### 2 4321-2 ####JANETH Galo ([id number])[facility] ([facility])[address] [place] [address] Sodium [Moles/Vol] 134 mmol/L Low 136-145 [facility] Comment on above: Performed By: #### 2 4321-2 ####JANETH Galo ([id number])[facility] ([facility])[address] [place] [address] Urea nitrogen [Mass/Vol] 15 mg/dL Normal 6-23 [facility] Comment on above: Performed By: #### 2 4321-2 ####JANETH GRAFF L ([id number])[facility] ([facility])[address] [place] [address] CBC panel Auto (Bld)on 05-09 Erythrocyte distribution width (RBC) [Ratio] 19.3 % High 11.5 - 14.5 % [facility] Hematocrit (Bld) [Volume fraction] 28.6 % Low 36.0 - 46.0 % [facility] Hemoglobin (Bld) [Mass/Vol] 8.2 g/dL Low 12.0 - 16.0 g/dL [facility] Interpretation and review of laboratory results Abnormal [facility] MCH (RBC) [Entitic mass] 24.3 pg Low 26.0 - 34.0 pg [facility] MCHC (RBC) [Mass/Vol] 28.7 g/dL Low 32.0 - 36.0 g/dL [facility] MCV (RBC) [Entitic vol] 85 fL 80 - 100 fL [facility] Nucleated RBC/100 WBC (Bld) [Ratio] 1.1 % High [facility] Platelets (Bld) [#/Vol] 559 10*3/uL High [facility] RBC (Bld) [#/Vol] 3.38 10*6/uL [facility] WBC (Bld) [#/Vol] 8.5 10*3/uL [facility] Erythrocyte distribution width (RBC) [Ratio] 19.3 % High 11.5-14.5 [facility] Comment on above: Performed By: #### 5 8410-2 ####JANETH Galo ([id number])[facility] ([facility])[address] [place] [address] Hematocrit (Bld) [Volume fraction] 28.6 % Low 36.0-46.0 [facility] Comment on above: Performed By: #### 5 8410-2 ####JANETH Galo ([id number])[facility] ([facility])[address] [place] [address] Hemoglobin (Bld) [Mass/Vol] 8.2 g/dL Low 12.0-16.0 [facility] Comment on above: Performed By: #### 5 8410-2 ####JANETH Galo (72089)[facility] ([facility])[address] [place] [address] MCH (RBC) [Entitic mass] 24.3 pg Low 26.0-34.0 [facility] Comment on above: Performed By: #### 5 8410-2 ####JANETH Galo ([id number])[facility] ([facility])[address] [place] [address] MCHC (RBC) [Mass/Vol] 28.7 g/dL Low 32.0-36.0 [facility] Comment on above: Performed By: #### 5 8410-2 ####JANETH Galo ([id number])[facility] ([facility])[address] [place] [address] MCV (RBC) [Entitic vol] 85 fL Normal 80-100 [facility] Comment on above: Performed By: #### 5 8410-2 ####JANETH Galo ([id number])[facility] ([facility])[address] [place] [address] Nucleated RBC/100 WBC (Bld) [Ratio] 1.1 /100 WBCs High 0.0-0.0 [facility] Comment on above: Performed By: #### 5 8410-2 ####JANETH Galo ([id number])[facility] ([facility])[address] [place] [address] Platelets (Bld) [#/Vol] 559 x10*3/uL High 150-450 [facility] Comment on above: Performed By: #### 5 8410-2 ####JANETH Galo ([id number])[facility] ([facility])[address] [place] [address] RBC (Bld) [#/Vol] 3.38 x10*6/uL Low 4.00-5.20 [facility] Comment on above: Performed By: #### 5 8410-2 ####JANETH Galo ([id number])[facility] ([facility])[address] [place] [address] WBC (Bld) [#/Vol] 8.5 x10*3/uL Normal 4.4-11.3 [facility] Comment on above: Performed By: #### 5 8410-2 ####JANETH GRAFF L ([id number])[facility] ([facility])[id number] [place] [address] Coagulation surface inducedo n 05-09-2024 aPTT Coag (PPP) [Time] 40 s High 26-36 [facility] Comment on above: Order Comment: Basel ine aPTT before initiating heparin infusion. Nursing to release order.The APTT is no longer used for monitoring Unfractionated Heparin Therapy. For monitoring Heparin Therapy, use the Heparin Assay. Performed By: #### 1 4979-9 ####JANETH Galo ([id number])[facility] ([facility])[address] [place] [address] Heparin Assay, UFHon 025 Heparin unfractionated Chromogenic method Qn (PPP) 0.1 See Comment Below for Therapeutic Ranges IU/mL [facility] Heparin unfractionated Chrom ogenic method Qn (PPP)on 05-09-2024 Interpretation and review of laboratory results Normal [facility] Heparin.unfractionatedon Heparin unfractionated Chromogenic method Qn (PPP) 0.1 IU/mL Normal See Comment Below for Therapeutic Ranges [facility] Comment on above: Order Comment: Obtai [...] please refer to local Pharmacy and the [facility] Guidelines for Anticoagulation Therapy available on the [facility] intranet at: [email or web address]_[facility]_Guidelines_for_[email or web address].aspx Performed By: #### 3 274-8 ####JANETH Galo ([id number])[facility] ([facility])[address] [place] [address] No Panel Informationon 05-09 [facility] US.doppler Lower extremity v ein - bilateralon 05-09-2024 MMODAL [facility] MMODAL [facility] Work Phone: Radiology Study observation (narrative) [facility] Work Phone: US.doppler Lower extremity v ein - bilateralOrdered By: Omkar Estrella on 05-09-2024 [facility] Work Phone: VASC US LOWER EXTREMITY VENO US DUPLEX BILATERALon 05-09-2024 VASC US LOWER EXTREMITY VENOUS DUPLEX BILATERAL Normal [facility] aPTT - baselineon 05-09-2024 aPTT Coag (PPP) [Time] 40 s High [facility] aPTT Coag (PPP) [Time]on Interpretation and review of laboratory results Abnormal [facility] Bacteria identified Cx Nom ( Unsp spec)Ordered By: Bailee Galloway on 05-08-2024 Microscopic observation Gram stain Nom (Unsp spec) (1+) Rare Polymorphonuclear leukocytes [facility] Microscopic observation Gram stain Nom (Unsp spec) No organisms seen [facility] Basic metabolic 2000 panelon 05-08-2024 Anion gap [Moles/Vol] 12 mmol/L 10 - 2 0 mmol/L [facility] Calcium [Mass/Vol] 8.3 mg/dL Low 8.6 - 10. 6 mg/dL [facility] Chloride [Moles/Vol] 103 mmol/L 98 - 10 7 mmol/L [facility] CO2 [Moles/Vol] 24 mmol/L 21 - 32 mmol/L [facility] Creatinine [Mass/Vol] 0.66 mg/dL 0.50 - 1.05 mg/dL [facility] eGFR - PINF [facility] Glucose [Mass/Vol] 85 mg/dL 74 - 99 mg/dL [facility] Interpretation and review of laboratory results Abnormal [facility] Potassium [Moles/Vol] 4.3 mmol/L 3.5 - 5.3 mmol/L [facility] Sodium [Moles/Vol] 135 mmol/L Low 136 - 145 mmol/L [facility] Urea nitrogen [Mass/Vol] 14 mg/dL 6 - 23 mg/dL [facility] Anion gap [Moles/Vol] 12 mmol/L Normal 10-20 [facility] Comment on above: Performed By: #### 2 4321-2 ####JANETH Galo ([id number])[facility] ([facility])[address] [place] [address] Calcium [Mass/Vol] 8.3 mg/dL Low 8.6-10.6 [facility] Comment on above: Performed By: #### 2 4321-2 ####JANETH Galo (54394)[facility] ([facility])[address] [place] [address] Chloride [Moles/Vol] 103 mmol/L Normal 98-107 [facility] Comment on above: Performed By: #### 2 4321-2 ####JANETH Galo ([id number])[facility] ([facility])[address] [place] [address] CO2 [Moles/Vol] 24 mmol/L Normal 21-32 [facility] Comment on above: Performed By: #### 2 4321-2 ####JANETH Galo (08821)[facility] ([facility])[address] [place] [address] Creatinine [Mass/Vol] 0.66 mg/dL Normal 0.50-1.05 [facility] Comment on above: Performed By: #### 2 4321-2 ####JANETH Galo ([id number])[facility] ([facility])[address] [place] [address] GFR/1.73 sq M.predicted MDRD (S/P/Bld) [Vol rate/Area] mL/min/{1.73_m2} Normal >60 [facility] Comment on above: Result Comment: Calc ulations of estimated GFR are performed using the 2020 CKD-EPI Study Refit equation without the race variable for the IDMS-Traceable creatinine methods.https://jasn.asnjournals.org/content/early/ N.9892768997 Performed By: #### 2 4321-2 ####JANETH Galo ([id number])[facility] ([facility])[address] [place] [address] Glucose [Mass/Vol] 85 mg/dL Normal 74-99 [facility] Comment on above: Performed By: #### 2 4321-2 ####JANETH Galo ([id number])[facility] ([facility])[address] [place] [address] Potassium [Moles/Vol] 4.3 mmol/L Normal 3.5-5.3 [facility] Comment on above: Performed By: #### 2 4321-2 ####JANETH Galo ([id number])[facility] ([facility])[address] [place] [address] Sodium [Moles/Vol] 135 mmol/L Low 136-145 [facility] Comment on above: Performed By: #### 2 4321-2 ####JANETH Galo ([id number])[facility] ([facility])[address] [place] [address] Urea nitrogen [Mass/Vol] 14 mg/dL Normal 6-23 [facility] Comment on above: Performed By: #### 2 4321-2 ####JANETH Galo ([id number])[facility] ([facility])[address] [place] [address] Blood type and Indirect anti body screen panel (Bld)on 05-08-2024 ABO group Nom (Bld) A [facility] Blood group antibody screen Ql Negative [facility] D Ag Ql (Bld) Positive [facility] ABO group Nom (Bld) A Normal [facility] Comment on above: Performed By: #### 3 4532-2 ####JANETH Galo ([id number])[facility] ([facility])[address] [place] [address] Blood group antibody screen Ql Negative [facility] Comment on above: Performed By: #### 3 4532-2 ####JANETH Galo ([id number])[facility] ([facility])[address] [facility] [place] [address] D Ag Ql (Bld) Positive [facility] Comment on above: Performed By: #### 3 453-2 ####JANETH Galo (75654)[facility] ([facility])[address] [place] [address] CBC panel Auto (Bld)on 05-08 Erythrocyte distribution width (RBC) [Ratio] 19.4 % High 11.5 - 14.5 % [facility] Hematocrit (Bld) [Volume fraction] 29.5 % Low 36.0 - 46.0 % [facility] Hemoglobin (Bld) [Mass/Vol] 8.6 g/dL Low 12.0 - 16.0 g/dL [facility] Interpretation and review of laboratory results Abnormal [facility] MCH (RBC) [Entitic mass] 24.8 pg Low 26.0 - 34.0 pg [facility] MCHC (RBC) [Mass/Vol] 29.2 g/dL Low 32.0 - 36.0 g/dL [facility] MCV (RBC) [Entitic vol] 85 fL 80 - 100 fL [facility] Nucleated RBC/100 WBC (Bld) [Ratio] 0.7 % High [facility] Platelets (Bld) [#/Vol] 548 10*3/uL High [facility] RBC (Bld) [#/Vol] 3.47 10*6/uL [facility] WBC (Bld) [#/Vol] 8.5 10*3/uL [facility] Erythrocyte distribution width (RBC) [Ratio] 19.4 % High 11.5-14.5 [facility] Comment on above: Performed By: #### 5 8410-2 ####JANETH Galo ([id number])[facility] ([facility])[address] [place] [address] Hematocrit (Bld) [Volume fraction] 29.5 % Low 36.0-46.0 [facility] Comment on above: Performed By: #### 5 8410-2 ####JANETH Galo ([id number])[facility] ([facility])[address] [place] [address] Hemoglobin (Bld) [Mass/Vol] 8.6 g/dL Low 12.0-16.0 [facility] Comment on above: Performed By: #### 5 8410-2 ####JANETH Galo ([id number])[facility] ([facility])[address] [place] [address] MCH (RBC) [Entitic mass] 24.8 pg Low 26.0-34.0 [facility] Comment on above: Performed By: #### 5 8410-2 ####JANETH Galo ([id number])[facility] ([facility])[address] [place] [address] MCHC (RBC) [Mass/Vol] 29.2 g/dL Low 32.0-36.0 [facility] Comment on above: Performed By: #### 5 8410-2 ####JANETH Galo ([id number])[facility] ([facility])[address] [place] [address] MCV (RBC) [Entitic vol] 85 fL Normal 80-100 [facility] Comment on above: Performed By: #### 5 8410-2 ####JANETH Galo ([id number])[facility] ([facility])[address] [place] [address] Nucleated RBC/100 WBC (Bld) [Ratio] 0.7 /100 WBCs High 0.0-0.0 [facility] Comment on above: Performed By: #### 5 8410-2 ####JANETH Galo ([id number])[facility] ([facility])[address] [place] [address] Platelets (Bld) [#/Vol] 548 x10*3/uL High 150-450 [facility] Comment on above: Performed By: #### 5 8410-2 ####JANETH Galo ([id number])[facility] ([facility])[address] [place] [address] RBC (Bld) [#/Vol] 3.47 x10*6/uL Low 4.00-5.20 [facility] Comment on above: Performed By: #### 5 8410-2 ####JANETH Galo ([id number])[facility] ([facility])[address] [place] [address] WBC (Bld) [#/Vol] 8.5 x10*3/uL Normal 4.4-11.3 [facility] Comment on above: Performed By: #### 5 8410-2 ####JANETH Galo ([id number])[facility] ([facility])[address] [place] [address] Erythrocyte distribution width (RBC) [Ratio] 19.4 % High 11.5 - 14.5 % [facility] Hematocrit (Bld) [Volume fraction] 23.8 % Low 36.0 - 46.0 % [facility] Hemoglobin (Bld) [Mass/Vol] 6.9 g/dL Low 12.0 - 16.0 g/dL [facility] Interpretation and review of laboratory results Abnormal [facility] MCH (RBC) [Entitic mass] 24 pg Low 26.0 - 34.0 pg [facility] MCHC (RBC) [Mass/Vol] 29 g/dL Low 32.0 - 36.0 g/dL [facility] MCV (RBC) [Entitic vol] 83 fL 80 - 100 fL [facility] Nucleated RBC/100 WBC (Bld) [Ratio] 0.8 % High [facility] Platelets (Bld) [#/Vol] 574 10*3/uL High [facility] RBC (Bld) [#/Vol] 2.87 10*6/uL Low [facility] WBC (Bld) [#/Vol] 8.3 10*3/uL [facility] Erythrocyte distribution width (RBC) [Ratio] 19.4 % High 11.5-14.5 [facility] Comment on above: Performed By: #### 5 8410-2 ####JANETH Galo ([id number])[facility] ([facility])[address] [place] [address] Hematocrit (Bld) [Volume fraction] 23.8 % Low 36.0-46.0 [facility] Comment on above: Performed By: #### 5 8410-2 ####JANETH Galo ([id number])[facility] ([facility])[address] [place] [address] Hemoglobin (Bld) [Mass/Vol] 6.9 g/dL Low 12.0-16.0 [facility] Comment on above: Performed By: #### 5 8410-2 ####JANETH Galo ([id number])[facility] ([facility])[address] [place] [address] MCH (RBC) [Entitic mass] 24.0 pg Low 26.0-34.0 [facility] Comment on above: Performed By: #### 5 8410-2 ####JANETH Galo ([id number])[facility] ([facility])[address] [place] [address] MCHC (RBC) [Mass/Vol] 29.0 g/dL Low 32.0-36.0 [facility] Comment on above: Performed By: #### 5 8410-2 ####JANETH Galo ([id number])[facility] ([facility])[address] [place] [address] MCV (RBC) [Entitic vol] 83 fL Normal 80-100 [facility] Comment on above: Performed By: #### 5 8410-2 ####JANETH Galo ([id number])[facility] ([facility])[address] [place] [address] Nucleated RBC/100 WBC (Bld) [Ratio] 0.8 /100 WBCs High 0.0-0.0 [facility] Comment on above: Performed By: #### 5 8410-2 ####JANETH Galo ([id number])[facility] ([facility])[address] [place] [address] Platelets (Bld) [#/Vol] 574 x10*3/uL High 150-450 [facility] Comment on above: Performed By: #### 5 8410-2 ####JANETH Galo ([id number])[facility] ([facility])[address] [place] [address] RBC (Bld) [#/Vol] 2.87 x10*6/uL Low 4.00-5.20 [facility] Comment on above: Performed By: #### 5 8410-2 ####JANETH Galo ([id number])[facility] ([facility])[address] [place] [address] WBC (Bld) [#/Vol] 8.3 x10*3/uL Normal 4.4-11.3 [facility] Comment on above: Performed By: #### 5 8410-2 ####JANETH Galo ([id number])[facility] ([facility])[address] [place] [address] Prepare RBC: 1 Unitson 05-08 Blood Expiration Date 05/27/2024 11:59:00 PM EDT [facility] Dispense Status TR [facility] PRODUCT BLOOD TYPE 6200 [facility] PRODUCT CODE [id number] [facility] Unit ABO A [facility] Unit Number [id number] [facility] Unit RH Positive [facility] UNIT VOLUME 350 [facility] XM INTEP COMP [facility] Tissue/Wound Culture/SmearOr dered By: Bailee Galloway on 05-08-2024 Bacteria identified Cx Nom (Unsp spec) (1+) Rare Mixed Skin Microorganisms [facility] Basic metabolic 2000 panelon 05-07-2024 Anion gap [Moles/Vol] 12 mmol/L 10 - 2 0 mmol/L [facility] Calcium [Mass/Vol] 8.3 mg/dL Low 8.6 - 10. 6 mg/dL [facility] Chloride [Moles/Vol] 102 mmol/L 98 - 10 7 mmol/L [facility] CO2 [Moles/Vol] 25 mmol/L 21 - 32 mmol/L [facility] Creatinine [Mass/Vol] 0.74 mg/dL 0.50 - 1.05 mg/dL [facility] eGFR - PINF [facility] Glucose [Mass/Vol] 102 mg/dL High 74 - 99 mg/dL [facility] Interpretation and review of laboratory results Abnormal [facility] Potassium [Moles/Vol] 4.5 mmol/L 3.5 - 5.3 mmol/L [facility] Sodium [Moles/Vol] 134 mmol/L Low 136 - 145 mmol/L [facility] Urea nitrogen [Mass/Vol] 13 mg/dL 6 - 23 mg/dL [facility] Anion gap [Moles/Vol] 12 mmol/L Normal 10-20 [facility] Comment on above: Performed By: #### 2 4321-2 ####JANETH Galo ([id number])[facility] ([facility])[address] [place] [address] Calcium [Mass/Vol] 8.3 mg/dL Low 8.6-10.6 [facility] Comment on above: Performed By: #### 2 4321-2 ####JANETH Galo ([id number])[facility] ([facility])[address] [place] [address] Chloride [Moles/Vol] 102 mmol/L Normal 98-107 [facility] Comment on above: Performed By: #### 2 4321-2 ####JANETH GRAFF L ([id number])[facility] ([facility])[address] [place] [address] CO2 [Moles/Vol] 25 mmol/L Normal 21-32 [facility] Comment on above: Performed By: #### 2 4321-2 ####JANETH GRAFF L ([id number])[facility] ([facility])[address] [place] [address] Creatinine [Mass/Vol] 0.74 mg/dL Normal 0.50-1.05 [facility] Comment on above: Performed By: #### 2 4321-2 ####JANETH Galo ([id number])[facility] ([facility])[address] [place] [address] GFR/1.73 sq M.predicted MDRD (S/P/Bld) [Vol rate/Area] mL/min/{1.73_m2} Normal >60 [facility] Comment on above: Result Comment: Calc ulations of estimated GFR are performed using the 2020 CKD-EPI Study Refit equation without the race variable for the IDMS-Traceable creatinine methods.https://jasn.asnjournals.org/content/early// N.7393376829 Performed By: #### 2 4321-2 ####JANETH Galo ([id number])[facility] ([facility])[address] [place] [address] Glucose [Mass/Vol] 102 mg/dL High 74-99 [facility] Comment on above: Performed By: #### 2 4321-2 ####JANETH Galo ([id number])[facility] ([facility])[address]26 [place] [address] Potassium [Moles/Vol] 4.5 mmol/L Normal 3.5-5.3 [facility] Comment on above: Performed By: #### 2 4321-2 ####JANETH Galo ([id number])[facility] ([facility])[address] [place] [address] Sodium [Moles/Vol] 134 mmol/L Low 136-145 [facility] Comment on above: Performed By: #### 2 4321-2 ####JANETH GRAFF L ([id number])[facility] ([facility])[address] [place] [address] Urea nitrogen [Mass/Vol] 13 mg/dL Normal 6-23 [facility] Comment on above: Performed By: #### 2 4321-2 ####JANETH GRAFF L ([id number])[facility] ([facility])[address] [place] [address] CBC panel Auto (Bld)on 05-07 Erythrocyte distribution width (RBC) [Ratio] 19 % High 11.5 - 14.5 % [facility] Hematocrit (Bld) [Volume fraction] 25.4 % Low 36.0 - 46.0 % [facility] Hemoglobin (Bld) [Mass/Vol] 7.7 g/dL Low 12.0 - 16.0 g/dL [facility] Interpretation and review of laboratory results Abnormal [facility] MCH (RBC) [Entitic mass] 24.5 pg Low 26.0 - 34.0 pg [facility] MCHC (RBC) [Mass/Vol] 30.3 g/dL Low 32.0 - 36.0 g/dL [facility] MCV (RBC) [Entitic vol] 81 fL 80 - 100 fL [facility] Nucleated RBC/100 WBC (Bld) [Ratio] 0.6 % High [facility] Platelets (Bld) [#/Vol] 611 10*3/uL High [facility] RBC (Bld) [#/Vol] 3.14 10*6/uL Low [facility] WBC (Bld) [#/Vol] 11.3 10*3/uL [facility] Erythrocyte distribution width (RBC) [Ratio] 19.0 % High 11.5-14.5 [facility] Comment on above: Performed By: #### 5 8410-2 ####JANETH Galo ([id number])[facility] ([facility])[id number] [place] [address] Hematocrit (Bld) [Volume fraction] 25.4 % Low 36.0-46.0 [facility] Comment on above: Performed By: #### 5 8410-2 ####JANETH Galo ([id number])[facility] ([facility])[address] [place] [address] Hemoglobin (Bld) [Mass/Vol] 7.7 g/dL Low 12.0-16.0 [facility] Comment on above: Performed By: #### 5 8410-2 ####JANETH Galo ([id number])[facility] ([facility])[address]36 [place] [address] MCH (RBC) [Entitic mass] 24.5 pg Low 26.0-34.0 [facility] Comment on above: Performed By: #### 5 8410-2 ####JANETH Galo ([id number])[facility] ([facility])[address] [place] [address] MCHC (RBC) [Mass/Vol] 30.3 g/dL Low 32.0-36.0 [facility] Comment on above: Performed By: #### 5 8410-2 ####JANETH Galo ([id number])[facility] ([facility])[address] [place] [address] MCV (RBC) [Entitic vol] 81 fL Normal 80-100 [facility] Comment on above: Performed By: #### 5 8410-2 ####JANETH Galo ([id number])[facility] ([facility])[address]291 [place] [address] Nucleated RBC/100 WBC (Bld) [Ratio] 0.6 /100 WBCs High 0.0-0.0 [facility] Comment on above: Performed By: #### 5 8410-2 ####JANETH Galo ([id number])[facility] ([facility])[address]76 [place] [address] Platelets (Bld) [#/Vol] 611 x10*3/uL High 150-450 [facility] Comment on above: Performed By: #### 5 8410-2 ####JANETH Galo ([id number])[facility] ([facility])[address] [place] [address] RBC (Bld) [#/Vol] 3.14 x10*6/uL Low 4.00-5.20 [facility] Comment on above: Performed By: #### 5 8410-2 ####JANETH Galo ([id number])[facility] ([facility])[address] [place] [address] WBC (Bld) [#/Vol] 11.3 x10*3/uL Normal 4.4-11.3 [facility] Comment on above: Performed By: #### 5 8410-2 ####JANETH Galo ([id number])[facility] ([facility])[address] [place] [address] Basic metabolic 2000 panelon 05-06-2024 Anion gap [Moles/Vol] 13 mmol/L 10 - 2 0 mmol/L [facility] Calcium [Mass/Vol] 8.4 mg/dL Low 8.6 - 10. 6 mg/dL [facility] Chloride [Moles/Vol] 102 mmol/L 98 - 10 7 mmol/L [facility] CO2 [Moles/Vol] 23 mmol/L 21 - 32 mmol/L [facility] Creatinine [Mass/Vol] 0.75 mg/dL 0.50 - 1.05 mg/dL [facility] eGFR - PINF [facility] Glucose [Mass/Vol] 91 mg/dL 74 - 99 mg/dL [facility] Interpretation and review of laboratory results Abnormal [facility] Potassium [Moles/Vol] 4.2 mmol/L 3.5 - 5.3 mmol/L [facility] Sodium [Moles/Vol] 134 mmol/L Low 136 - 145 mmol/L [facility] Urea nitrogen [Mass/Vol] 11 mg/dL 6 - 23 mg/dL [facility] Anion gap [Moles/Vol] 13 mmol/L Normal 10-20 [facility] Comment on above: Performed By: #### 2 4321-2 ####JANETH Galo ([id number])[facility] ([facility])[id number] [place] [address] Calcium [Mass/Vol] 8.4 mg/dL Low 8.6-10.6 [facility] Comment on above: Performed By: #### 2 4321-2 ####JANETH Galo ([id number])[facility] ([facility])[address] [place] [address] Chloride [Moles/Vol] 102 mmol/L Normal 98-107 [facility] Comment on above: Performed By: #### 2 4321-2 ####JANETH Galo ([id number])[facility] ([facility])[address] [place] [address] CO2 [Moles/Vol] 23 mmol/L Normal 21-32 [facility] Comment on above: Performed By: #### 2 4321-2 ####JANETH Galo ([id number])[facility] ([facility])[address]644 [place] [address] Creatinine [Mass/Vol] 0.75 mg/dL Normal 0.50-1.05 [facility] Comment on above: Performed By: #### 2 4321-2 ####JANETH Galo ([id number])[facility] ([facility])[address]90 [place] [address] GFR/1.73 sq M.predicted MDRD (S/P/Bld) [Vol rate/Area] mL/min/{1.73_m2} Normal >60 [facility] Comment on above: Result Comment: Calc ulations of estimated GFR are performed using the 2020 CKD-EPI Study Refit equation without the race variable for the IDMS-Traceable creatinine methods.https://jasn.asnjournals.org/content// N.2736783818 Performed By: #### 2 4321-2 ####JANETH Galo ([id number])[facility] ([facility])[address]74 [place] [address] Glucose [Mass/Vol] 91 mg/dL Normal 74-99 [facility] Comment on above: Performed By: #### 2 4321-2 ####JANETH Galo ([id number])[facility] ([facility])[address]993 [place] [address] Potassium [Moles/Vol] 4.2 mmol/L Normal 3.5-5.3 [facility] Comment on above: Performed By: #### 2 4321-2 ####JANETH Galo ([id number])[facility] ([facility])[address]46 [place] [address] Sodium [Moles/Vol] 134 mmol/L Low 136-145 [facility] Comment on above: Performed By: #### 2 4321-2 ####JANETH Galo ([id number])[facility] ([facility])[address]36 [place] [address] Urea nitrogen [Mass/Vol] 11 mg/dL Normal 6-23 [facility] Comment on above: Performed By: #### 2 4321-2 ####JANETH Galo ([id number])[facility] ([facility])[address] [place] [address] CBC panel Auto (Bld)on 05-06 Erythrocyte distribution width (RBC) [Ratio] 18.7 % High 11.5 - 14.5 % [facility] Hematocrit (Bld) [Volume fraction] 25.7 % Low 36.0 - 46.0 % [facility] Hemoglobin (Bld) [Mass/Vol] 7.7 g/dL Low 12.0 - 16.0 g/dL [facility] Interpretation and review of laboratory results Abnormal [facility] MCH (RBC) [Entitic mass] 24.4 pg Low 26.0 - 34.0 pg [facility] MCHC (RBC) [Mass/Vol] 30 g/dL Low 32.0 - 36.0 g/dL [facility] MCV (RBC) [Entitic vol] 82 fL 80 - 100 fL [facility] Nucleated RBC/100 WBC (Bld) [Ratio] 0.2 % High [facility] Platelets (Bld) [#/Vol] 665 10*3/uL High [facility] RBC (Bld) [#/Vol] 3.15 10*6/uL Low [facility] WBC (Bld) [#/Vol] 10.9 10*3/uL [facility] Erythrocyte distribution width (RBC) [Ratio] 18.7 % High 11.5-14.5 [facility] Comment on above: Performed By: #### 5 8410-2 ####JANETH Galo ([id number])[facility] ([facility])[address] [place] [address] Hematocrit (Bld) [Volume fraction] 25.7 % Low 36.0-46.0 [facility] Comment on above: Performed By: #### 5 8410-2 ####JANETH Galo ([id number])[facility] ([facility])[address] [place] [address] Hemoglobin (Bld) [Mass/Vol] 7.7 g/dL Low 12.0-16.0 [facility] Comment on above: Performed By: #### 5 8410-2 ####JANETH Galo ([id number])[facility] ([facility])[address] [place] [address]7962 MCH (RBC) [Entitic mass] 24.4 pg Low 26.0-34.0 [facility] Comment on above: Performed By: #### 5 8410-2 ####JANETH Galo ([id number])[facility] ([facility])[address] [place] [address] MCHC (RBC) [Mass/Vol] 30.0 g/dL Low 32.0-36.0 [facility] Comment on above: Performed By: #### 5 8410-2 ####JANETH Galo ([id number])[facility] ([facility])[address] [place] [address] MCV (RBC) [Entitic vol] 82 fL Normal 80-100 [facility] Comment on above: Performed By: #### 5 8410-2 ####JANETH Galo ([id number])[facility] ([facility])[address] [place] [address] 01698 Nucleated RBC/100 WBC (Bld) [Ratio] 0.2 /100 WBCs High 0.0-0.0 [facility] Comment on above: Performed By: #### 5 8410-2 ####JANETH Galo ([id number])[facility] ([facility])[address]34 [place] [address] Platelets (Bld) [#/Vol] 665 x10*3/uL High 150-450 [facility] Comment on above: Performed By: #### 5 8410-2 ####JANETH Galo ([id number])[facility] ([facility])[id number] [place] [address] 18088 RBC (Bld) [#/Vol] 3.15 x10*6/uL Low 4.00-5.20 [facility] Comment on above: Performed By: #### 5 8410-2 ####JANETH Galo ([id number])[facility] ([facility])[address] [place] [address] WBC (Bld) [#/Vol] 10.9 x10*3/uL Normal 4.4-11.3 [facility] Comment on above: Performed By: #### 5 8410-2 ####JANETH Galo ([id number])[facility] ([facility])[address] [place] [address]1628 Bacteria identifiedon 2024 Bacteria identified Cx Nom (Unsp spec) [facility] Comment on above: Performed By: #### 6 463-4 ####JANETH Galo ([id number])[facility] ([facility])[address] [place] [address] 21408 Basic metabolic 2000 panelon 05-05-2024 Anion gap [Moles/Vol] 16 mmol/L 10 - 2 0 mmol/L [facility] Calcium [Mass/Vol] 8.6 mg/dL 8.6 - 10. 6 mg/dL [facility] Chloride [Moles/Vol] 100 mmol/L 98 - 10 7 mmol/L [facility] CO2 [Moles/Vol] 24 mmol/L 21 - 32 mmol/L [facility] Creatinine [Mass/Vol] 0.76 mg/dL 0.50 - 1.05 mg/dL [facility] eGFR - PINF [facility] Glucose [Mass/Vol] 93 mg/dL 74 - 99 mg/dL [facility] Interpretation and review of laboratory results Normal [facility] Potassium [Moles/Vol] 4.4 mmol/L 3.5 - 5.3 mmol/L [facility] Sodium [Moles/Vol] 136 mmol/L 136 - 145 mmol/L [facility] Urea nitrogen [Mass/Vol] 15 mg/dL 6 - 23 mg/dL [facility] Anion gap [Moles/Vol] 16 mmol/L Normal 10-20 [facility] Comment on above: Performed By: #### 2 4321-2 ####JANETH GRAFF L ([id number])[facility] ([facility])[address] [place] [address] Calcium [Mass/Vol] 8.6 mg/dL Normal 8.6-10.6 [facility] Comment on above: Performed By: #### 2 4321-2 ####JANETH GRAFF L ([id number])[facility] ([facility])[address] [place] [address] Chloride [Moles/Vol] 100 mmol/L Normal 98-107 [facility] Comment on above: Performed By: #### 2 4321-2 ####JANETH CONNORMOTZLETI L ([id number])[facility] ([facility])[address] [place] [address] CO2 [Moles/Vol] 24 mmol/L Normal 21-32 [facility] Comment on above: Performed By: #### 2 4321-2 ####JANETH MCDONALDTZER L ([id number])[facility] ([facility])[address] [place] [address] Creatinine [Mass/Vol] 0.76 mg/dL Normal 0.50-1.05 [facility] Comment on above: Performed By: #### 2 4321-2 ####JANETH GRAFF L ([id number])[facility] ([facility])[address] [place] [address] GFR/1.73 sq M.predicted MDRD (S/P/Bld) [Vol rate/Area] mL/min/{1.73_m2} Normal >60 [facility] Comment on above: Result Comment: Calc ulations of estimated GFR are performed using the 2020 CKD-EPI Study Refit equation without the race variable for the IDMS-Traceable creatinine methods.https://jasn.asnjournals.org/content/early/ N.3017419336 Performed By: #### 2 4321-2 ####JANETH Galo ([id number])[facility] ([facility])[address] [place] [address] Glucose [Mass/Vol] 93 mg/dL Normal 74-99 [facility] Comment on above: Performed By: #### 2 4321-2 ####JANETH GRAFF L ([id number])[facility] ([facility])[address] [place] [address] Potassium [Moles/Vol] 4.4 mmol/L Normal 3.5-5.3 [facility] Comment on above: Performed By: #### 2 4321-2 ####JANETH CONNORMOTZER L ([id number])[facility] ([facility])[address] [place] [address] Sodium [Moles/Vol] 136 mmol/L Normal 136-145 [facility] Comment on above: Performed By: #### 2 4321-2 ####JANETH CONNORMOTZER L ([id number])[facility] ([facility])[address] [place] [address] Urea nitrogen [Mass/Vol] 15 mg/dL Normal 6-23 [facility] Comment on above: Performed By: #### 2 4321-2 ####JANETH CONNORMOTZER L ([id number])[facility] ([facility])[address] [place] [address] CBC panel Auto (Bld)on 05-05 Erythrocyte distribution width (RBC) [Ratio] 18.9 % High 11.5 - 14.5 % [facility] Hematocrit (Bld) [Volume fraction] 25.6 % Low 36.0 - 46.0 % [facility] Hemoglobin (Bld) [Mass/Vol] 7.4 g/dL Low 12.0 - 16.0 g/dL [facility] Interpretation and review of laboratory results Abnormal [facility] MCH (RBC) [Entitic mass] 23.4 pg Low 26.0 - 34.0 pg [facility] MCHC (RBC) [Mass/Vol] 28.9 g/dL Low 32.0 - 36.0 g/dL [facility] MCV (RBC) [Entitic vol] 81 fL 80 - 100 fL [facility] Nucleated RBC/100 WBC (Bld) [Ratio] 0.2 % High [facility] Platelets (Bld) [#/Vol] 719 10*3/uL High [facility] RBC (Bld) [#/Vol] 3.16 10*6/uL Low [facility] WBC (Bld) [#/Vol] 8.2 10*3/uL [facility] Erythrocyte distribution width (RBC) [Ratio] 18.9 % High 11.5-14.5 [facility] Comment on above: Performed By: #### 5 8410-2 ####JANETH Galo ([id number])[facility] ([facility])[id number] [place] [address] Hematocrit (Bld) [Volume fraction] 25.6 % Low 36.0-46.0 [facility] Comment on above: Performed By: #### 5 8410-2 ####JANETH Galo ([id number])[facility] ([facility])[address] [place] [address] Hemoglobin (Bld) [Mass/Vol] 7.4 g/dL Low 12.0-16.0 [facility] Comment on above: Performed By: #### 5 8410-2 ####JANETH Galo ([id number])[facility] ([facility])[address] [place] [address] MCH (RBC) [Entitic mass] 23.4 pg Low 26.0-34.0 [facility] Comment on above: Performed By: #### 5 8410-2 ####JANETH Galo ([id number])[facility] ([facility])[address] [place] [address] MCHC (RBC) [Mass/Vol] 28.9 g/dL Low 32.0-36.0 [facility] Comment on above: Performed By: #### 5 8410-2 ####JANETH Galo ([id number])[facility] ([facility])[address] [place] [address] MCV (RBC) [Entitic vol] 81 fL Normal 80-100 [facility] Comment on above: Performed By: #### 5 8410-2 ####JANETH Galo ([id number])[facility] ([facility])[address] [place] [address] Nucleated RBC/100 WBC (Bld) [Ratio] 0.2 /100 WBCs High 0.0-0.0 [facility] Comment on above: Performed By: #### 5 8410-2 ####JANETH Galo ([id number])[facility] ([facility])[address] [place] [address] Platelets (Bld) [#/Vol] 719 x10*3/uL High 150-450 [facility] Comment on above: Performed By: #### 5 8410-2 ####JANETH Galo ([id number])[facility] ([facility])[address] [place] [address] RBC (Bld) [#/Vol] 3.16 x10*6/uL Low 4.00-5.20 [facility] Comment on above: Performed By: #### 5 8410-2 ####JANETH Galo ([id number])[facility] ([facility])[address] [place] [address] WBC (Bld) [#/Vol] 8.2 x10*3/uL Normal 4.4-11.3 [facility] Comment on above: Performed By: #### 5 8410-2 ####JANETH Galo ([id number])[facility] ([facility])[address] [place] [address] FL FLUORO IMAGES NO CHARGEon 05-05-2024 FL FLUORO IMAGES NO CHARGE These images are not reportable by radiology and will not be interpreted by Radiologists. Normal [facility] Fungus identifiedon 05-06-19 25 Fungus identified Cx Nom (Unsp spec) Abnormal [facility] Comment on above: Performed By: #### 5 80-1 ####JANETH Galo ([id number])[facility] ([facility])[address] [place] [address] HCG ( test) Ql (U)o n 05-05-2024 Interpretation and review of laboratory results Normal [facility] Work Phone: Preg Test, Ur Negative Negative [facility] Work Phone: [facility] Work Phone: Peripheral Blockon 5 [facility] Work Phone: [facility] Work Phone: Prepare RBC: 1 Unitson 05-05 Blood Expiration Date 05/25/2024 11:59:00 PM EDT [facility] Dispense Status TR [facility] PRODUCT BLOOD TYPE 6200 [facility] PRODUCT CODE [id number] [facility] Unit ABO A [facility] Unit Number [id number] [facility] Unit RH Positive [facility] UNIT VOLUME 350 [facility] XM INTEP COMP [facility] Surgical pathology studyon 0 05-05-2024 Surgical pathology study Normal [facility] Comment on above: Order Comment: Pre-o p diagnosis:Wound dehiscence, surgical, initial encounter [T81.31XA]Tibial plateau fracture, right, sequela [S82.141S]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 6 mg/dL [facility] Chloride [Moles/Vol] 100 mmol/L 98 - 10 7 mmol/L [facility] CO2 [Moles/Vol] 24 mmol/L 21 - 32 mmol/L [facility] Creatinine [Mass/Vol] 0.86 mg/dL 0.50 - 1.05 mg/dL [facility] GFR/1.73 sq M.predicted among non-blacks MDRD (S/P/Bld) [Vol rate/Area] 81 mL/min/{1.73_m2} - PINF [facility] Glucose [Mass/Vol] 102 mg/dL High 74 - 99 mg/dL [facility] Interpretation and review of laboratory results Abnormal [facility] Potassium [Moles/Vol] 4.4 mmol/L 3.5 - 5.3 mmol/L [facility] Sodium [Moles/Vol] 133 mmol/L Low 136 - 145 mmol/L [facility] Urea nitrogen [Mass/Vol] 18 mg/dL 6 - 23 mg/dL [facility] Anion gap [Moles/Vol] 13 mmol/L Normal 10-20 [facility] Comment on above: Performed By: #### 2 4321-2 ####JANETH Galo ([id number])[facility] ([facility])[address] [place] [address] Calcium [Mass/Vol] 8.5 mg/dL Low 8.6-10.6 [facility] Comment on above: Performed By: #### 2 4321-2 ####JANETH Galo ([id number])[facility] ([facility])[address] [place] [address] Chloride [Moles/Vol] 100 mmol/L Normal 98-107 [facility] Comment on above: Performed By: #### 2 4321-2 ####JANETH Galo ([id number])[facility] ([facility])[address] [place] [address] CO2 [Moles/Vol] 24 mmol/L Normal 21-32 [facility] Comment on above: Performed By: #### 2 4321-2 ####JANETH Galo ([id number])[facility] ([facility])[address] [place] [address] Creatinine [Mass/Vol] 0.86 mg/dL Normal 0.50-1.05 [facility] Comment on above: Performed By: #### 2 4321-2 ####JANETH Galo ([id number])[facility] ([facility])[id number] [place] [address] Glomerular filtration rate/1.73 sq M.predicted 81 mL/min/1.73m*2 Normal >60 [facility] Comment on above: Result Comment: Calc ulations of estimated GFR are performed using the 2020 CKD-EPI Study Refit equation without the race variable for the IDMS-Traceable creatinine methods.https://jasn.asnjournals.org/content/early// N.8554223009 Performed By: #### 2 4321-2 ####JANETH Galo ([id number])[facility] ([facility])[address] [place] [address] Glucose [Mass/Vol] 102 mg/dL High 74-99 [facility] Comment on above: Performed By: #### 2 4321-2 ####JANETH Galo ([id number])[facility] ([facility])[address] [place] [address] Potassium [Moles/Vol] 4.4 mmol/L Normal 3.5-5.3 [facility] Comment on above: Performed By: #### 2 4321-2 ####JANETH Galo ([id number])[facility] ([facility])[address] [place] [address] Sodium [Moles/Vol] 133 mmol/L Low 136-145 [facility] Comment on above: Performed By: #### 2 4321-2 ####JANETH Galo ([id number])[facility] ([facility])[address] [place] [address] Urea nitrogen [Mass/Vol] 18 mg/dL Normal 6- [facility] Comment on above: Performed By: #### 2 4321-2 ####JANETH Galo ([id number])[facility] ([facility])[address] [place] [address] CBC panel Auto (Bld)on 05-04 Erythrocyte distribution width (RBC) [Ratio] 18.8 % High 11.5 - 14.5 % [facility] Hematocrit (Bld) [Volume fraction] 26.3 % Low 36.0 - 46.0 % [facility] Hemoglobin (Bld) [Mass/Vol] 7.8 g/dL Low 12.0 - 16.0 g/dL [facility] Interpretation and review of laboratory results Abnormal [facility] MCH (RBC) [Entitic mass] 24.1 pg Low 26.0 - 34.0 pg [facility] MCHC (RBC) [Mass/Vol] 29.7 g/dL Low 32.0 - 36.0 g/dL [facility] MCV (RBC) [Entitic vol] 81 fL 80 - 100 fL [facility] Nucleated RBC/100 WBC (Bld) [Ratio] 0 % [facility] Platelets (Bld) [#/Vol] 724 10*3/uL High [facility] RBC (Bld) [#/Vol] 3.23 10*6/uL Low [facility] WBC (Bld) [#/Vol] 7.6 10*3/uL [facility] Erythrocyte distribution width (RBC) [Ratio] 18.8 % High 11.5-14.5 [facility] Comment on above: Performed By: #### 5 8410-2 ####JANETH Galo ([id number])[facility] ([facility])[id number] [place] [address] Hematocrit (Bld) [Volume fraction] 26.3 % Low 36.0-46.0 [facility] Comment on above: Performed By: #### 5 8410-2 ####JANETH Galo ([id number])[facility] ([facility])[address] [place] [address] Hemoglobin (Bld) [Mass/Vol] 7.8 g/dL Low 12.0-16.0 [facility] Comment on above: Performed By: #### 5 8410-2 ####JANETH Galo ([id number])[facility] ([facility])[address] [place] [address] MCH (RBC) [Entitic mass] 24.1 pg Low 26.0-34.0 [facility] Comment on above: Performed By: #### 5 8410-2 ####JANETH Galo ([id number])[facility] ([facility])[address] [place] [address] MCHC (RBC) [Mass/Vol] 29.7 g/dL Low 32.0-36.0 [facility] Comment on above: Performed By: #### 5 8410-2 ####JANETH Galo ([id number])[facility] ([facility])[address] [place] [address] MCV (RBC) [Entitic vol] 81 fL Normal 80-100 [facility] Comment on above: Performed By: #### 5 8410-2 ####JANETH Galo ([id number])[facility] ([facility])[address] [place] [address] Nucleated RBC/100 WBC (Bld) [Ratio] 0.0 /100 WBCs Normal 0.0-0.0 [facility] Comment on above: Performed By: #### 5 8410-2 ####JANETH Galo ([id number])[facility] ([facility])[address] [place] [address] Platelets (Bld) [#/Vol] 724 x10*3/uL High 150-450 [facility] Comment on above: Performed By: #### 5 8410-2 ####JANETH Galo ([id number])[facility] ([facility])[address] [place] [address] RBC (Bld) [#/Vol] 3.23 x10*6/uL Low 4.00-5.20 [facility] Comment on above: Performed By: #### 5 8410-2 ####JANETH Galo ([id number])[facility] ([facility])[address] [place] [address] WBC (Bld) [#/Vol] 7.6 x10*3/uL Normal 4.4-11.3 [facility] Comment on above: Performed By: #### 5 8410-2 ####JANETH Galo ([id number])[facility] ([facility])[address] [place] [address] Basic metabolic 2000 panelon 05-03-2024 Anion gap [Moles/Vol] 11 mmol/L 10 - 2 0 mmol/L [facility] Calcium [Mass/Vol] 9 mg/dL 8.6 - 10. 6 mg/dL [facility] Chloride [Moles/Vol] 99 mmol/L 98 - 10 7 mmol/L [facility] CO2 [Moles/Vol] 26 mmol/L 21 - 32 mmol/L [facility] Creatinine [Mass/Vol] 0.95 mg/dL 0.50 - 1.05 mg/dL [facility] GFR/1.73 sq M.predicted among non-blacks MDRD (S/P/Bld) [Vol rate/Area] 72 mL/min/{1.73_m2} - PINF [facility] Glucose [Mass/Vol] 132 mg/dL High 74 - 99 mg/dL [facility] Interpretation and review of laboratory results Abnormal [facility] Potassium [Moles/Vol] 5 mmol/L 3.5 - 5.3 mmol/L [facility] Sodium [Moles/Vol] 131 mmol/L Low 136 - 145 mmol/L [facility] Urea nitrogen [Mass/Vol] 14 mg/dL 6 - 23 mg/dL [facility] Anion gap [Moles/Vol] 11 mmol/L Normal 10-20 [facility] Comment on above: Performed By: #### 2 4321-2 ####JANETH Galo ([id number])[facility] ([facility])[address] [place] [address] Calcium [Mass/Vol] 9.0 mg/dL Normal 8.6-10.6 [facility] Comment on above: Performed By: #### 2 4321-2 ####JANETH GRAFF L ([id number])[facility] ([facility])[address] [place] [address] Chloride [Moles/Vol] 99 mmol/L Normal 98-107 [facility] Comment on above: Performed By: #### 2 4321-2 ####JANETH GRAFF L ([id number])[facility] ([facility])[address] [place] [address] CO2 [Moles/Vol] 26 mmol/L Normal 21-32 [facility] Comment on above: Performed By: #### 2 4321-2 ####JANETH GRAFF L ([id number])[facility] ([facility])[address] [place] [address] Creatinine [Mass/Vol] 0.95 mg/dL Normal 0.50-1.05 [facility] Comment on above: Performed By: #### 2 4321-2 ####JANETH GRAFF L ([id number])[facility] ([facility])[address] [place] [address] Glomerular filtration rate/1.73 sq M.predicted 72 mL/min/1.73m*2 Normal >60 [facility] Comment on above: Result Comment: Calc ulations of estimated GFR are performed using the 2020 CKD-EPI Study Refit equation without the race variable for the IDMS-Traceable creatinine methods.https://jasn.asnjournals.org/content// N.7710569882 Performed By: #### 2 4321-2 ####JANETH Galo ([id number])[facility] ([facility])[address] [place] [address] Glucose [Mass/Vol] 132 mg/dL High 74-99 [facility] Comment on above: Performed By: #### 2 4321-2 ####JANETH Galo ([id number])[facility] ([facility])[address] [place] [address] Potassium [Moles/Vol] 5.0 mmol/L Normal 3.5-5.3 [facility] Comment on above: Performed By: #### 2 4321-2 ####JANETH Galo ([id number])[facility] ([facility])[address] [place] [address] Sodium [Moles/Vol] 131 mmol/L Low 136-145 [facility] Comment on above: Performed By: #### 2 4321-2 ####JANETH Galo ([id number])[facility] ([facility])[address] [place] [address] Urea nitrogen [Mass/Vol] 14 mg/dL Normal 6-23 [facility] Comment on above: Performed By: #### 2 4321-2 ####JANETH Galo ([id number])[facility] ([facility])[address] [place] [address] Anion gap [Moles/Vol] 12 mmol/L 10 - 2 0 mmol/L [facility] Calcium [Mass/Vol] 8.8 mg/dL 8.6 - 10. 6 mg/dL [facility] Chloride [Moles/Vol] 99 mmol/L 98 - 10 7 mmol/L [facility] CO2 [Moles/Vol] 26 mmol/L 21 - 32 mmol/L [facility] Creatinine [Mass/Vol] 0.97 mg/dL 0.50 - 1.05 mg/dL [facility] GFR/1.73 sq M.predicted among non-blacks MDRD (S/P/Bld) [Vol rate/Area] 70 mL/min/{1.73_m2} - PINF [facility] Glucose [Mass/Vol] 87 mg/dL 74 - 99 mg/dL [facility] Interpretation and review of laboratory results Abnormal [facility] Potassium [Moles/Vol] 6.3 mmol/L Critically high 3.5 - 5.3 mmol/L [facility] Sodium [Moles/Vol] 131 mmol/L Low 136 - 145 mmol/L [facility] Urea nitrogen [Mass/Vol] 15 mg/dL 6 - 23 mg/dL [facility] Anion gap [Moles/Vol] 12 mmol/L Normal 10-20 [facility] Comment on above: Performed By: #### 2 4321-2 ####JANETH Galo ([id number])[facility] ([facility])[address] [place] [address] Calcium [Mass/Vol] 8.8 mg/dL Normal 8.6-10.6 [facility] Comment on above: Performed By: #### 2 4321-2 ####JANETH GRAFF L ([id number])[facility] ([facility])[address] [place] [address] Chloride [Moles/Vol] 99 mmol/L Normal 98-107 [facility] Comment on above: Performed By: #### 2 4321-2 ####JANETH MCDONALDTZLETI L ([id number])[facility] ([facility])[address] [place] [address] CO2 [Moles/Vol] 26 mmol/L Normal 21-32 [facility] Comment on above: Performed By: #### 2 4321-2 ####JANETH GRAFF L ([id number])[facility] ([facility])[address] [place] [address] Creatinine [Mass/Vol] 0.97 mg/dL Normal 0.50-1.05 [facility] Comment on above: Performed By: #### 2 4321-2 ####JANETH Galo ([id number])[facility] ([facility])[address] [place] [address] Glomerular filtration rate/1.73 sq M.predicted 70 mL/min/1.73m*2 Normal >60 [facility] Comment on above: Result Comment: Calc ulations of estimated GFR are performed using the 2020 CKD-EPI Study Refit equation without the race variable for the IDMS-Traceable creatinine methods.https://jasn.asnjournals.org/content/early// N.9560453849 Performed By: #### 2 4321-2 ####JANETH Galo ([id number])[facility] ([facility])[address] [place] [address] Glucose [Mass/Vol] 87 mg/dL Normal 74-99 [facility] Comment on above: Performed By: #### 2 4321-2 ####JANETH Galo ([id number])[facility] ([facility])[address] [place] [address] Potassium [Moles/Vol] 6.3 mmol/L Critically high 3.5-5.3 [facility] Comment on above: Result Comment: MILD HEMOLYSIS DETECTED. The result may be falsely elevated due to hemolysis or other interferents. Clinical correlation is recommended. Repeat testing may be considered. Performed By: #### 2 4321-2 ####JANETH GRAFF L ([id number])[facility] ([facility])[address] [place] [address] Sodium [Moles/Vol] 131 mmol/L Low 136-145 [facility] Comment on above: Performed By: #### 2 4321-2 ####JANETH GRAFF L ([id number])[facility] ([facility])[address] [place] [address] Urea nitrogen [Mass/Vol] 15 mg/dL Normal 6-23 [facility] Comment on above: Performed By: #### 2 4321-2 ####JANETH Galo ([id number])[facility] ([facility])[address] [place] [address] Blood type and Indirect anti body screen panel (Bld)on 05-03-2024 ABO group Nom (Bld) A [facility] Blood group antibody screen Ql Negative [facility] D Ag Ql (Bld) Positive [facility] ABO group Nom (Bld) A Normal [facility] Comment on above: Performed By: #### 3 4532-2 ####JANETH Galo ([id number])[facility] ([facility])[address] [place] [address] Blood group antibody screen Ql Negative [facility] Comment on above: Performed By: #### 3 4532-2 ####JANETH Galo ([id number])[facility] ([facility])[address] [place] [address] D Ag Ql (Bld) Positive [facility] Comment on above: Performed By: #### 3 4532-2 ####JANETH Galo ([id number])[facility] ([facility])[address] [place] [address] CBC panel Auto (Bld)on 05-03 Erythrocyte distribution width (RBC) [Ratio] 19 % High 11.5 - 14.5 % [facility] Hematocrit (Bld) [Volume fraction] 28.4 % Low 36.0 - 46.0 % [facility] Hemoglobin (Bld) [Mass/Vol] 8.3 g/dL Low 12.0 - 16.0 g/dL [facility] Interpretation and review of laboratory results Abnormal [facility] MCH (RBC) [Entitic mass] 23.9 pg Low 26.0 - 34.0 pg [facility] MCHC (RBC) [Mass/Vol] 29.2 g/dL Low 32.0 - 36.0 g/dL [facility] MCV (RBC) [Entitic vol] 82 fL 80 - 100 fL [facility] Nucleated RBC/100 WBC (Bld) [Ratio] 0 % [facility] Platelets (Bld) [#/Vol] 811 10*3/uL High [facility] RBC (Bld) [#/Vol] 3.47 10*6/uL Low [facility] WBC (Bld) [#/Vol] 9.2 10*3/uL [facility] Erythrocyte distribution width (RBC) [Ratio] 19.0 % High 11.5-14.5 [facility] Comment on above: Performed By: #### 5 8410-2 ####JANETH Galo ([id number])[facility] ([facility])[address] [place] [address]70 Hematocrit (Bld) [Volume fraction] 28.4 % Low 36.0-46.0 [facility] Comment on above: Performed By: #### 5 8410-2 ####JANETH Galo ([id number])[facility] ([facility])[id number] [place] [address] 26049 Hemoglobin (Bld) [Mass/Vol] 8.3 g/dL Low 12.0-16.0 [facility] Comment on above: Performed By: #### 5 8410-2 ####JANETH Galo ([id number])[facility] ([facility])[id number] [place] [address] 16367 MCH (RBC) [Entitic mass] 23.9 pg Low 26.0-34.0 [facility] Comment on above: Performed By: #### 5 8410-2 ####JANETH Galo ([id number])[facility] ([facility])[id number] [place] [address] 16071 MCHC (RBC) [Mass/Vol] 29.2 g/dL Low 32.0-36.0 [facility] Comment on above: Performed By: #### 5 8410-2 ####JANETH Galo ([id number])[facility] ([facility])[id number] [place] [address] 22163 MCV (RBC) [Entitic vol] 82 fL Normal 80-100 [facility] Comment on above: Performed By: #### 5 8410-2 ####JANETH Galo ([id number])[facility] ([facility])[address] [place] [address] Nucleated RBC/100 WBC (Bld) [Ratio] 0.0 /100 WBCs Normal 0.0-0.0 [facility] Comment on above: Performed By: #### 5 8410-2 ####JANETH Galo ([id number])[facility] ([facility])[address] [place] [address] Platelets (Bld) [#/Vol] 811 x10*3/uL High 150-450 [facility] Comment on above: Performed By: #### 5 8410-2 ####JANETH Galo ([id number])[facility] ([facility])[address] [place] [address] RBC (Bld) [#/Vol] 3.47 x10*6/uL Low 4.00-5.20 [facility] Comment on above: Performed By: #### 5 8410-2 ####JANETH Galo ([id number])[facility] ([facility])[address] [place] [address] WBC (Bld) [#/Vol] 9.2 x10*3/uL Normal 4.4-11.3 [facility] Comment on above: Performed By: #### 5 8410-2 ####JANETH Galo ([id number])[facility] ([facility])[address] [place] [address] Fungal Culture/Smearon 05-03 Fungus identified Cx Nom (Unsp spec) (1+) Rare Mendy parapsilosis Abnormal [facility] Work Phone: Fungal Culture/SmearOrdered By: Comfort Vidal on 05-03-2024 Fungus identified Cx Nom (Unsp spec) 2 colonies Mendy parapsilosis Abnormal [facility] Fungus identified Cx Nom (Un sp spec)on 05-03-2024 Fungus identified Fungus stain Nom (Unsp spec) No fungal elements seen [facility] Work Phone: Interpretation and review of laboratory results Abnormal [facility] Work Phone: [facility] Work Phone: Fungus identified Cx Nom (Un sp spec)Ordered By: Comfort Vidal on 05-03-2024 Fungus identified Fungus stain Nom (Unsp spec) No fungal elements seen [facility] Interpretation and review of laboratory results Abnormal [facility] Nicotine + Metabolites, Urin ita 05-03-2024 Anabasine (U) [Mass/Vol] <5 ng/mL [facility] Cotinine (U) [Mass/Vol] 32 ng/mL [facility] Nicotine (U) [Mass/Vol] <15 ng/mL [facility] Zrnlz-4-Ykbkepryaemeo ne (U) [Mass/Vol] 1178 ng/mL [facility] Basic metabolic 2000 panelon 05-02-2024 Anion gap [Moles/Vol] 13 mmol/L 10 - 2 0 mmol/L [facility] Calcium [Mass/Vol] 8.7 mg/dL 8.6 - 10. 6 mg/dL [facility] Chloride [Moles/Vol] 100 mmol/L 98 - 10 7 mmol/L [facility] CO2 [Moles/Vol] 24 mmol/L 21 - 32 mmol/L [facility] Creatinine [Mass/Vol] 1.03 mg/dL 0.50 - 1.05 mg/dL [facility] GFR/1.73 sq M.predicted among non-blacks MDRD (S/P/Bld) [Vol rate/Area] 66 mL/min/{1.73_m2} - PINF [facility] Glucose [Mass/Vol] 100 mg/dL High 74 - 99 mg/dL [facility] Interpretation and review of laboratory results Abnormal [facility] Potassium [Moles/Vol] 4.4 mmol/L 3.5 - 5.3 mmol/L [facility] Sodium [Moles/Vol] 133 mmol/L Low 136 - 145 mmol/L [facility] Urea nitrogen [Mass/Vol] 15 mg/dL 6 - 23 mg/dL [facility] Anion gap [Moles/Vol] 13 mmol/L Normal 10-20 [facility] Comment on above: Performed By: #### 2 4321-2 ####JANETH MCDONALDTZER L ([id number])[facility] ([facility])[address] [place] [address] Calcium [Mass/Vol] 8.7 mg/dL Normal 8.6-10.6 [facility] Comment on above: Performed By: #### 2 4321-2 ####JANETH SCHMOTZER L ([id number])[facility] ([facility])[address] [place] [address] Chloride [Moles/Vol] 100 mmol/L Normal 98-107 [facility] Comment on above: Performed By: #### 2 4321-2 ####JANETH SCHMOTZER L ([id number])[facility] ([facility])[address] [place] [address] CO2 [Moles/Vol] 24 mmol/L Normal 21-32 [facility] Comment on above: Performed By: #### 2 4321-2 ####JANETH CONNORMOTZER L ([id number])[facility] ([facility])[address] [place] [address] Creatinine [Mass/Vol] 1.03 mg/dL Normal 0.50-1.05 [facility] Comment on above: Performed By: #### 2 4321-2 ####JANETH SCHMOTZER L ([id number])[facility] ([facility])[address] [place] [address] Glomerular filtration rate/1.73 sq M.predicted 66 mL/min/1.73m*2 Normal >60 [facility] Comment on above: Result Comment: Calc ulations of estimated GFR are performed using the 2020 CKD-EPI Study Refit equation without the race variable for the IDMS-Traceable creatinine methods.https://jasn.asnjournals.org/content/early/ N.4852773247 Performed By: #### 2 4321-2 ####JANETH Galo ([id number])[facility] ([facility])[address] [place] [address] Glucose [Mass/Vol] 100 mg/dL High 74-99 [facility] Comment on above: Performed By: #### 2 4321-2 ####JANETH GRAFF L ([id number])[facility] ([facility])[address] [place] [address] Potassium [Moles/Vol] 4.4 mmol/L Normal 3.5-5.3 [facility] Comment on above: Performed By: #### 2 4321-2 ####JANETH Galo ([id number])[facility] ([facility])[address] [place] [address] Sodium [Moles/Vol] 133 mmol/L Low 136-145 [facility] Comment on above: Performed By: #### 2 4321-2 ####JANETH Galo ([id number])[facility] ([facility])[id number] [place] [address] 46664 Urea nitrogen [Mass/Vol] 15 mg/dL Normal 6-23 [facility] Comment on above: Performed By: #### 2 4321-2 ####JANETH GRAFF L ([id number])[facility] ([facility])[id number] [place] [address]150 CBC panel Auto (Bld)on 05-02 Erythrocyte distribution width (RBC) [Ratio] 18.8 % High 11.5 - 14.5 % [facility] Hematocrit (Bld) [Volume fraction] 26.6 % Low 36.0 - 46.0 % [facility] Hemoglobin (Bld) [Mass/Vol] 7.9 g/dL Low 12.0 - 16.0 g/dL [facility] Interpretation and review of laboratory results Abnormal [facility] MCH (RBC) [Entitic mass] 24.2 pg Low 26.0 - 34.0 pg [facility] MCHC (RBC) [Mass/Vol] 29.7 g/dL Low 32.0 - 36.0 g/dL [facility] MCV (RBC) [Entitic vol] 81 fL 80 - 100 fL [facility] Nucleated RBC/100 WBC (Bld) [Ratio] 0 % [facility] Platelets (Bld) [#/Vol] 758 10*3/uL High [facility] RBC (Bld) [#/Vol] 3.27 10*6/uL Low [facility] WBC (Bld) [#/Vol] 8.7 10*3/uL [facility] Erythrocyte distribution width (RBC) [Ratio] 18.8 % High 11.5-14.5 [facility] Comment on above: Performed By: #### 5 8410-2 ####JANETH Galo ([id number])[facility] ([facility])[address] [place] [address] Hematocrit (Bld) [Volume fraction] 26.6 % Low 36.0-46.0 [facility] Comment on above: Performed By: #### 5 8410-2 ####JANETH Galo ([id number])[facility] ([facility])[address] [place] [address] Hemoglobin (Bld) [Mass/Vol] 7.9 g/dL Low 12.0-16.0 [facility] Comment on above: Performed By: #### 5 8410-2 ####JANETH Galo ([id number])[facility] ([facility])[address] [place] [address] MCH (RBC) [Entitic mass] 24.2 pg Low 26.0-34.0 [facility] Comment on above: Performed By: #### 5 8410-2 ####JANETH Galo ([id number])[facility] ([facility])[address] [place] [address] MCHC (RBC) [Mass/Vol] 29.7 g/dL Low 32.0-36.0 [facility] Comment on above: Performed By: #### 5 8410-2 ####JANETH Galo ([id number])[facility] ([facility])[address] [place] [address] MCV (RBC) [Entitic vol] 81 fL Normal 80-100 [facility] Comment on above: Performed By: #### 5 8410-2 ####JANETH Galo ([id number])[facility] ([facility])[id number] [place] [address] 41874 Nucleated RBC/100 WBC (Bld) [Ratio] 0.0 /100 WBCs Normal 0.0-0.0 [facility] Comment on above: Performed By: #### 5 8410-2 ####JANETH Galo ([id number])[facility] ([facility])[id number] [place] [address] Platelets (Bld) [#/Vol] 758 x10*3/uL High 150-450 [facility] Comment on above: Performed By: #### 5 8410-2 ####JANETH Galo ([id number])[facility] ([facility])[id number] [place] [address] 95973 RBC (Bld) [#/Vol] 3.27 x10*6/uL Low 4.00-5.20 [facility] Comment on above: Performed By: #### 5 8410-2 ####JANETH Galo ([id number])[facility] ([facility])[id number] [place] [address] 54296 WBC (Bld) [#/Vol] 8.7 x10*3/uL Normal 4.4-11.3 [facility] Comment on above: Performed By: #### 5 8410-2 ####JANETH Galo ([id number])[facility] ([facility])[address] [place] [address] Bacteria identified Cx Nom ( Unsp spec)on 05-01-2024 Interpretation and review of laboratory results Abnormal [facility] Work Phone: Microscopic observation Gram stain Nom (Unsp spec) No polymorphonuclear leukocytes seen Abnormal [facility] Work Phone: Microscopic observation Gram stain Nom (Unsp spec) Positive Abnormal [facility] Work Phone: [facility] Work Phone: Bacteria identified Cx Nom ( Unsp spec)Ordered By: Radha Bird on 05-01-2024 Interpretation and review of laboratory results Abnormal [facility] Microscopic observation Gram stain Nom (Unsp spec) (2+) Few Polymorphonuclear leukocytes [facility] Microscopic observation Gram stain Nom (Unsp spec) No organisms seen [facility] Basic metabolic 2000 panelon 05-01-2024 Anion gap [Moles/Vol] 12 mmol/L 10 - 2 0 mmol/L [facility] Calcium [Mass/Vol] 8.9 mg/dL 8.6 - 10. 6 mg/dL [facility] Chloride [Moles/Vol] 101 mmol/L 98 - 10 7 mmol/L [facility] CO2 [Moles/Vol] 26 mmol/L 21 - 32 mmol/L [facility] Creatinine [Mass/Vol] 0.97 mg/dL 0.50 - 1.05 mg/dL [facility] GFR/1.73 sq M.predicted among non-blacks MDRD (S/P/Bld) [Vol rate/Area] 70 mL/min/{1.73_m2} - PINF [facility] Glucose [Mass/Vol] 95 mg/dL 74 - 99 mg/dL [facility] Interpretation and review of laboratory results Abnormal [facility] Potassium [Moles/Vol] 4.4 mmol/L 3.5 - 5.3 mmol/L [facility] Sodium [Moles/Vol] 135 mmol/L Low 136 - 145 mmol/L [facility] Urea nitrogen [Mass/Vol] 14 mg/dL 6 - 23 mg/dL [facility] Anion gap [Moles/Vol] 12 mmol/L Normal 10-20 [facility] Comment on above: Performed By: #### 2 4718-2 ####JANETH GRAFF L ([id number])[facility] ([facility])[address] [place] [address] Calcium [Mass/Vol] 8.9 mg/dL Normal 8.6-10.6 [facility] Comment on above: Performed By: #### 2 4321-2 ####JANETH RANGELER L ([id number])[facility] ([facility])[address] [place] [address] Chloride [Moles/Vol] 101 mmol/L Normal 98-107 [facility] Comment on above: Performed By: #### 2 4321-2 ####JANETH RANGELER L ([id number])[facility] ([facility])[address] [place] [address] CO2 [Moles/Vol] 26 mmol/L Normal 21-32 [facility] Comment on above: Performed By: #### 2 4321-2 ####JANETH GRAFF L ([id number])[facility] ([facility])[address] [place] [address] Creatinine [Mass/Vol] 0.97 mg/dL Normal 0.50-1.05 [facility] Comment on above: Performed By: #### 2 4321-2 ####JANETH GRAFF L ([id number])[facility] ([facility])[address] [place] [address] Glomerular filtration rate/1.73 sq M.predicted 70 mL/min/1.73m*2 Normal >60 [facility] Comment on above: Result Comment: Calc ulations of estimated GFR are performed using the 2020 CKD-EPI Study Refit equation without the race variable for the IDMS-Traceable creatinine methods.https://jasn.asnjournals.org/content/early/ N.8851724721 Performed By: #### 2 4321-2 ####JANETH MCDONALDTZER L ([id number])[facility] ([facility])[address] [place] [address] Glucose [Mass/Vol] 95 mg/dL Normal 74-99 [facility] Comment on above: Performed By: #### 2 4321-2 ####JANETH Galo ([id number])[facility] ([facility])[address] [place] [address] Potassium [Moles/Vol] 4.4 mmol/L Normal 3.5-5.3 [facility] Comment on above: Performed By: #### 2 4321-2 ####JANETH Galo ([id number])[facility] ([facility])[address] [place] [address] Sodium [Moles/Vol] 135 mmol/L Low 136-145 [facility] Comment on above: Performed By: #### 2 4321-2 ####JANETH Galo ([id number])[facility] ([facility])[address] [place] [address] Urea nitrogen [Mass/Vol] 14 mg/dL Normal 6-23 [facility] Comment on above: Performed By: #### 2 4321-2 ####JANETH Galo ([id number])[facility] ([facility])[address] [place] [address] CBC panel Auto (Bld)on 05-01 Erythrocyte distribution width (RBC) [Ratio] 18.6 % High 11.5 - 14.5 % [facility] Hematocrit (Bld) [Volume fraction] 27 % Low 36.0 - 46.0 % [facility] Hemoglobin (Bld) [Mass/Vol] 8 g/dL Low 12.0 - 16.0 g/dL [facility] Interpretation and review of laboratory results Abnormal [facility] MCH (RBC) [Entitic mass] 23.5 pg Low 26.0 - 34.0 pg [facility] MCHC (RBC) [Mass/Vol] 29.6 g/dL Low 32.0 - 36.0 g/dL [facility] MCV (RBC) [Entitic vol] 79 fL Low 80 - 100 fL [facility] Nucleated RBC/100 WBC (Bld) [Ratio] 0.3 % High [facility] Platelets (Bld) [#/Vol] 738 10*3/uL High [facility] RBC (Bld) [#/Vol] 3.4 10*6/uL Low [facility] WBC (Bld) [#/Vol] 9.7 10*3/uL [facility] Erythrocyte distribution width (RBC) [Ratio] 18.6 % High 11.5-14.5 [facility] Comment on above: Performed By: #### 5 8410-2 ####JANETH Galo ([id number])[facility] ([facility])[id number] [place] [address] 21663 Hematocrit (Bld) [Volume fraction] 27.0 % Low 36.0-46.0 [facility] Comment on above: Performed By: #### 5 8410-2 ####JANETH Galo ([id number])[facility] ([facility])[id number] [place] [address] 13691 Hemoglobin (Bld) [Mass/Vol] 8.0 g/dL Low 12.0-16.0 [facility] Comment on above: Performed By: #### 5 8410-2 ####JANETH Galo ([id number])[facility] ([facility])[id number] [place] [address]293 MCH (RBC) [Entitic mass] 23.5 pg Low 26.0-34.0 [facility] Comment on above: Performed By: #### 5 8410-2 ####JANETH Galo ([id number])[facility] ([facility])[address] [place] [address] MCHC (RBC) [Mass/Vol] 29.6 g/dL Low 32.0-36.0 [facility] Comment on above: Performed By: #### 5 8410-2 ####JANETH Galo ([id number])[facility] ([facility])[address] [place] [address] MCV (RBC) [Entitic vol] 79 fL Low 80-100 [facility] Comment on above: Performed By: #### 5 8410-2 ####JANETH Galo ([id number])[facility] ([facility])[address] [place] [address] Nucleated RBC/100 WBC (Bld) [Ratio] 0.3 /100 WBCs High 0.0-0.0 [facility] Comment on above: Performed By: #### 5 8410-2 ####JANETH Galo ([id number])[facility] ([facility])[address] [place] [address] Platelets (Bld) [#/Vol] 738 x10*3/uL High 150-450 [facility] Comment on above: Performed By: #### 5 8410-2 ####JANETH Galo ([id number])[facility] ([facility])[address] [place] [address] RBC (Bld) [#/Vol] 3.40 x10*6/uL Low 4.00-5.20 [facility] Comment on above: Performed By: #### 5 8410-2 ####JANETH Galo ([id number])[facility] ([facility])[address]167 [place] [address] WBC (Bld) [#/Vol] 9.7 x10*3/uL Normal 4.4-11.3 [facility] Comment on above: Performed By: #### 5 8410-2 ####JANETH Galo ([id number])[facility] ([facility])[address] [place] [address] Nicotine + Metabolites, Urin ita 05-01-2024 Anabasine (U) [Mass/Vol] <5 ng/mL [facility] Cotinine (U) [Mass/Vol] 74 ng/mL [facility] Nicotine (U) [Mass/Vol] <15 ng/mL [facility] Rndzi-8-Rsyzzcvyqlhqm ne (U) [Mass/Vol] 1686 ng/mL [facility] Tissue/Wound Culture/Smearon 05-01-2024 Bacteria identified Cx Nom (Unsp spec) Negative [facility] Work Phone: Bacteria identified Cx Nom (Unsp spec) (2+) Few Mixed Skin Microorganisms [facility] Work Phone: Tissue/Wound Culture/SmearOr dered By: Radha Bird on 05-01-2024 Bacteria identified Cx Nom (Unsp spec) (1+) Rare Alcaligenes faecalis Abnormal [facility] Bacteria identified Cx Nom (Unsp spec) Negative [facility] Bacteria identified Cx Nom ( Unsp spec)on 04-30-2024 Microscopic observation Gram stain Nom (Unsp spec) (2+) Few Polymorphonuclear leukocytes [facility] Work Phone: Microscopic observation Gram stain Nom (Unsp spec) No organisms [facility]: [facility] Work Phone: Interpretation and review of laboratory results Abnormal [facility] Work Phone: Microscopic observation Gram stain Nom (Unsp spec) No polymorphonuclear leukocytes seen Abnormal [facility] Work Phone: Microscopic observation Gram stain Nom (Unsp spec) Negative Abnormal [facility] Work Phone: [facility] Work Phone: Basic metabolic 2000 panelon 04-30-2024 Anion gap [Moles/Vol] 14 mmol/L 10 - 2 0 mmol/L [facility] Calcium [Mass/Vol] 8.8 mg/dL 8.6 - 10. 6 mg/dL [facility] Chloride [Moles/Vol] 101 mmol/L 98 - 10 7 mmol/L [facility] CO2 [Moles/Vol] 25 mmol/L 21 - 32 mmol/L [facility] Creatinine [Mass/Vol] 0.85 mg/dL 0.50 - 1.05 mg/dL [facility] GFR/1.73 sq M.predicted among non-blacks MDRD (S/P/Bld) [Vol rate/Area] 83 mL/min/{1.73_m2} - PINF [facility] Glucose [Mass/Vol] 86 mg/dL 74 - 99 mg/dL [facility] Interpretation and review of laboratory results Abnormal [facility] Potassium [Moles/Vol] 4.5 mmol/L 3.5 - 5.3 mmol/L [facility] Sodium [Moles/Vol] 135 mmol/L Low 136 - 145 mmol/L [facility] Urea nitrogen [Mass/Vol] 13 mg/dL 6 - 23 mg/dL [facility] Anion gap [Moles/Vol] 14 mmol/L Normal 10-20 [facility] Comment on above: Performed By: #### 2 4321-2 ####JANETH Galo ([id number])[facility] ([facility])[address] [place] [address] Calcium [Mass/Vol] 8.8 mg/dL Normal 8.6-10.6 [facility] Comment on above: Performed By: #### 2 4321-2 ####JANETH GRAFF L ([id number])[facility] ([facility])[address] [place] [address] Chloride [Moles/Vol] 101 mmol/L Normal 98-107 [facility] Comment on above: Performed By: #### 2 4321-2 ####JANETH GRAFF L ([id number])[facility] ([facility])[address] [place] [address] CO2 [Moles/Vol] 25 mmol/L Normal 21-32 [facility] Comment on above: Performed By: #### 2 4321-2 ####JANETH GRAFF L ([id number])[facility] ([facility])[address] [place] [address] Creatinine [Mass/Vol] 0.85 mg/dL Normal 0.50-1.05 [facility] Comment on above: Performed By: #### 2 4321-2 ####JANETH GRAFF L ([id number])[facility] ([facility])[address] [place] [address] Glomerular filtration rate/1.73 sq M.predicted 83 mL/min/1.73m*2 Normal >60 [facility] Comment on above: Result Comment: Calc ulations of estimated GFR are performed using the 2020 CKD-EPI Study Refit equation without the race variable for the IDMS-Traceable creatinine methods.https://jasn.asnjournals.org/content/early/ N.8378493197 Performed By: #### 2 4321-2 ####JANETH GRAFF L ([id number])[facility] ([facility])[address] [place] [address] Glucose [Mass/Vol] 86 mg/dL Normal 74-99 [facility] Comment on above: Performed By: #### 2 4321-2 ####JANETH CONNORMOTZER L ([id number])[facility] ([facility])[address] [place] [address] Potassium [Moles/Vol] 4.5 mmol/L Normal 3.5-5.3 [facility] Comment on above: Performed By: #### 2 4321-2 ####JANETH CONNORMOTZER L ([id number])[facility] ([facility])[address] [place] [address] Sodium [Moles/Vol] 135 mmol/L Low 136-145 [facility] Comment on above: Performed By: #### 2 4321-2 ####JANETH CONNORMOTZER L ([id number])[facility] ([facility])[address] [place] [address] Urea nitrogen [Mass/Vol] 13 mg/dL Normal 6-23 [facility] Comment on above: Performed By: #### 2 4321-2 ####JANETH CONNORMOTZER L ([id number])[facility] ([facility])[address] [place] [address] CBC panel Auto (Bld)on 04-30 Erythrocyte distribution width (RBC) [Ratio] 18.6 % High 11.5 - 14.5 % [facility] Hematocrit (Bld) [Volume fraction] 31.3 % Low 36.0 - 46.0 % [facility] Hemoglobin (Bld) [Mass/Vol] 8.7 g/dL Low 12.0 - 16.0 g/dL [facility] Interpretation and review of laboratory results Abnormal [facility] MCH (RBC) [Entitic mass] 23.9 pg Low 26.0 - 34.0 pg [facility] MCHC (RBC) [Mass/Vol] 27.8 g/dL Low 32.0 - 36.0 g/dL [facility] MCV (RBC) [Entitic vol] 86 fL 80 - 100 fL [facility] Nucleated RBC/100 WBC (Bld) [Ratio] 0.3 % High [facility] Platelets (Bld) [#/Vol] 754 10*3/uL High [facility] RBC (Bld) [#/Vol] 3.64 10*6/uL [facility] WBC (Bld) [#/Vol] 7.8 10*3/uL [facility] Erythrocyte distribution width (RBC) [Ratio] 18.6 % High 11.5-14.5 [facility] Comment on above: Performed By: #### 5 8410-2 ####JANETH Galo ([id number])[facility] ([facility])[id number] [place] [address] Hematocrit (Bld) [Volume fraction] 31.3 % Low 36.0-46.0 [facility] Comment on above: Performed By: #### 5 8410-2 ####JANETH Galo ([id number])[facility] ([facility])[address] [place] [address] Hemoglobin (Bld) [Mass/Vol] 8.7 g/dL Low 12.0-16.0 [facility] Comment on above: Performed By: #### 5 8410-2 ####JANETH Galo ([id number])[facility] ([facility])[address] [place] [address] MCH (RBC) [Entitic mass] 23.9 pg Low 26.0-34.0 [facility] Comment on above: Performed By: #### 5 8410-2 ####JANETH Galo ([id number])[facility] ([facility])[address] [place] [address] MCHC (RBC) [Mass/Vol] 27.8 g/dL Low 32.0-36.0 [facility] Comment on above: Performed By: #### 5 8410-2 ####JANETH Galo ([id number])[facility] ([facility])[address] [place] [address] MCV (RBC) [Entitic vol] 86 fL Normal 80-100 [facility] Comment on above: Performed By: #### 5 8410-2 ####JANETH Galo ([id number])[facility] ([facility])[address] [place] [address] Nucleated RBC/100 WBC (Bld) [Ratio] 0.3 /100 WBCs High 0.0-0.0 [facility] Comment on above: Performed By: #### 5 8410-2 ####JANETH Galo ([id number])[facility] ([facility])[address] [place] [address] Platelets (Bld) [#/Vol] 754 x10*3/uL High 150-450 [facility] Comment on above: Performed By: #### 5 8410-2 ####JANETH Galo ([id number])[facility] ([facility])[address] [place] [address] RBC (Bld) [#/Vol] 3.64 x10*6/uL Low 4.00-5.20 [facility] Comment on above: Performed By: #### 5 8410-2 ####JANETH Galo ([id number])[facility] ([facility])[address] [place] [address] WBC (Bld) [#/Vol] 7.8 x10*3/uL Normal 4.4-11.3 [facility] Comment on above: Performed By: #### 5 8410-2 ####JANETH Galo ([id number])[facility] ([facility])[id number] [place] [address] Tissue/Wound Culture/Smearon 04-30-2024 Bacteria identified Cx Nom (Unsp spec) (1+) Rare Mixed Skin Microorganisms [facility] Work Phone: Bacteria identified Cx Nom (Unsp spec) (4+) Abundant Mixed Gram-Positive and Gram-Negative Bacteria [facility] Work Phone: Bacteria identified Cx Nom ( Unsp spec)Ordered By: Kristi Rahman on 04-29-2024 Interpretation and review of laboratory results Abnormal [facility] Microscopic observation Gram stain Nom (Unsp spec) (3+) Moderate Polymorphonuclear leukocytes [facility] Microscopic observation Gram stain Nom (Unsp spec) No organisms seen [facility] Basic metabolic 2000 panelon 04-29-2024 Anion gap [Moles/Vol] 11 mmol/L 10 - 2 0 mmol/L [facility] Calcium [Mass/Vol] 8.7 mg/dL 8.6 - 10. 6 mg/dL [facility] Chloride [Moles/Vol] 101 mmol/L 98 - 10 7 mmol/L [facility] CO2 [Moles/Vol] 26 mmol/L 21 - 32 mmol/L [facility] Creatinine [Mass/Vol] 0.8 mg/dL 0.50 - 1.05 mg/dL [facility] GFR/1.73 sq M.predicted among non-blacks MDRD (S/P/Bld) [Vol rate/Area] 89 mL/min/{1.73_m2} - PINF [facility] Glucose [Mass/Vol] 104 mg/dL High 74 - 99 mg/dL [facility] Interpretation and review of laboratory results Abnormal [facility] Potassium [Moles/Vol] 4.3 mmol/L 3.5 - 5.3 mmol/L [facility] Sodium [Moles/Vol] 134 mmol/L Low 136 - 145 mmol/L [facility] Urea nitrogen [Mass/Vol] 11 mg/dL 6 - 23 mg/dL [facility] Anion gap [Moles/Vol] 11 mmol/L Normal 10-20 [facility] Comment on above: Performed By: #### 2 4321-2 ####JANETH GRAFF L ([id number])[facility] ([facility])[address] [place] [address] Calcium [Mass/Vol] 8.7 mg/dL Normal 8.6-10.6 [facility] Comment on above: Performed By: #### 2 4321-2 ####JANETH GRAFF L ([id number])[facility] ([facility])[address] [place] [address] Chloride [Moles/Vol] 101 mmol/L Normal 98-107 [facility] Comment on above: Performed By: #### 2 4321-2 ####JANETH GRAFF L ([id number])[facility] ([facility])[address] [place] [address] CO2 [Moles/Vol] 26 mmol/L Normal 21-32 [facility] Comment on above: Performed By: #### 2 4321-2 ####JANETH MCDONALDTZER L ([id number])[facility] ([facility])[address] [place] [address] Creatinine [Mass/Vol] 0.80 mg/dL Normal 0.50-1.05 [facility] Comment on above: Performed By: #### 2 4321-2 ####JANETH GRAFF L ([id number])[facility] ([facility])[address] [place] [address] Glomerular filtration rate/1.73 sq M.predicted 89 mL/min/1.73m*2 Normal >60 [facility] Comment on above: Result Comment: Calc ulations of estimated GFR are performed using the 2020 CKD-EPI Study Refit equation without the race variable for the IDMS-Traceable creatinine methods.https://jasn.asnjournals.org/content/early// N.4198244069 Performed By: #### 2 4321-2 ####JANETH Galo ([id number])[facility] ([facility])[address] [place] [address] Glucose [Mass/Vol] 104 mg/dL High 74-99 [facility] Comment on above: Performed By: #### 2 4321-2 ####JANETH Galo ([id number])[facility] ([facility])[address] [place] [address] Potassium [Moles/Vol] 4.3 mmol/L Normal 3.5-5.3 [facility] Comment on above: Performed By: #### 2 4321-2 ####JANETH Galo ([id number])[facility] ([facility])[address] [place] [address] Sodium [Moles/Vol] 134 mmol/L Low 136-145 [facility] Comment on above: Performed By: #### 2 4321-2 ####JANETH Galo ([id number])[facility] ([facility])[address] [place] [address] Urea nitrogen [Mass/Vol] 11 mg/dL Normal 6-23 [facility] Comment on above: Performed By: #### 2 4321-2 ####JANETH Galo ([id number])[facility] ([facility])[address] [place] [address] CBC panel Auto (Bld)on 04-29 Erythrocyte distribution width (RBC) [Ratio] 18.2 % High 11.5 - 14.5 % [facility] Hematocrit (Bld) [Volume fraction] 27.3 % Low 36.0 - 46.0 % [facility] Hemoglobin (Bld) [Mass/Vol] 8.1 g/dL Low 12.0 - 16.0 g/dL [facility] Interpretation and review of laboratory results Abnormal [facility] MCH (RBC) [Entitic mass] 24.5 pg Low 26.0 - 34.0 pg [facility] MCHC (RBC) [Mass/Vol] 29.7 g/dL Low 32.0 - 36.0 g/dL [facility] MCV (RBC) [Entitic vol] 83 fL 80 - 100 fL [facility] Nucleated RBC/100 WBC (Bld) [Ratio] 0 % [facility] Platelets (Bld) [#/Vol] 759 10*3/uL High [facility] RBC (Bld) [#/Vol] 3.3 10*6/uL Low [facility] WBC (Bld) [#/Vol] 9.6 10*3/uL [facility] Erythrocyte distribution width (RBC) [Ratio] 18.2 % High 11.5-14.5 [facility] Comment on above: Performed By: #### 5 8410-2 ####JANETH Galo ([id number])[facility] ([facility])[address] [place] [address] Hematocrit (Bld) [Volume fraction] 27.3 % Low 36.0-46.0 [facility] Comment on above: Performed By: #### 5 8410-2 ####JANETH Galo ([id number])[facility] ([facility])[address] [place] [address] Hemoglobin (Bld) [Mass/Vol] 8.1 g/dL Low 12.0-16.0 [facility] Comment on above: Performed By: #### 5 8410-2 ####JANETH Galo ([id number])[facility] ([facility])[address] [place] [address] MCH (RBC) [Entitic mass] 24.5 pg Low 26.0-34.0 [facility] Comment on above: Performed By: #### 5 8410-2 ####JANETH Galo ([id number])[facility] ([facility])[address] [place] [address] MCHC (RBC) [Mass/Vol] 29.7 g/dL Low 32.0-36.0 [facility] Comment on above: Performed By: #### 5 8410-2 ####JANETH Galo ([id number])[facility] ([facility])[address] [place] [address] MCV (RBC) [Entitic vol] 83 fL Normal 80-100 [facility] Comment on above: Performed By: #### 5 8410-2 ####JANETH Galo ([id number])[facility] ([facility])[address] [place] [address] Nucleated RBC/100 WBC (Bld) [Ratio] 0.0 /100 WBCs Normal 0.0-0.0 [facility] Comment on above: Performed By: #### 5 8410-2 ####JANETH Galo ([id number])[facility] ([facility])[address] [place] [address] Platelets (Bld) [#/Vol] 759 x10*3/uL High 150-450 [facility] Comment on above: Performed By: #### 5 8410-2 ####JANETH Galo ([id number])[facility] ([facility])[address] [place] [address] RBC (Bld) [#/Vol] 3.30 x10*6/uL Low 4.00-5.20 [facility] Comment on above: Performed By: #### 5 8410-2 ####JANETH Galo ([id number])[facility] ([facility])[address] [place] [address] WBC (Bld) [#/Vol] 9.6 x10*3/uL Normal 4.4-11.3 [facility] Comment on above: Performed By: #### 5 8410-2 ####JANETH Galo ([id number])[facility] ([facility])[address] [place] [address] Ferritinon 04-29-2024 Ferritin [Mass/Vol] 34 ng/mL 8 - 150 ng/mL [facility] Ferritin [Mass/Vol] 34 ng/mL Normal 8-150 [facility] Comment on above: Performed By: #### 2 276-4 ####JANETH Galo ([id number])[facility] ([facility])[address] [place] [address] Ferritin [Mass/Vol]on 2024 Interpretation and review of laboratory results Normal [facility] Iron and Iron binding capaci ty panelon 04-29-2024 Interpretation and review of laboratory results Abnormal [facility] Iron [Mass/Vol] 15 ug/dL Low 35 - 150 ug/dL [facility] Iron binding capacity [Mass/Vol] 324 ug/dL 240 - 445 ug/dL [facility] Iron binding capacity.unsaturated [Mass/Vol] 309 ug/dL 110 - 370 ug/dL [facility] Iron saturation [Mass fraction] 5 % Low 25 - 45 % [facility] Iron [Mass/Vol] 15 ug/dL Low 35-150 [facility] Comment on above: Performed By: #### 5 0190-8 ####JANETH Galo ([id number])[facility] ([facility])[address] [place] [address] Iron binding capacity [Mass/Vol] 324 ug/dL Normal 240-445 [facility] Comment on above: Performed By: #### 5 0190-8 ####JANETH GRAFF L ([id number])[facility] ([facility])[address] [place] [address] Iron binding capacity.unsaturated [Mass/Vol] 309 ug/dL Normal 110-370 [facility] Comment on above: Performed By: #### 5 0190-8 ####JANETH CONNORMOTZER L ([id number])[facility] ([facility])[address] [place] [address] Iron saturation [Mass fraction] 5 % Low 25-45 [facility] Comment on above: Performed By: #### 5 0190-8 ####JANETH CONNORMOTZER L ([id number])[facility] ([facility])[address] [place] [address] No Panel Informationon 04-29 [facility] Slide RequestOrdered By: Karishma Welch on 04-29-2024 [facility] Tissue/Wound Culture/SmearOr dered By: Kristi Rahman on 04-29-2024 Bacteria identified Cx Nom (Unsp spec) (1+) Rare Providencia rettgeri Abnormal [facility] Bacteria identified Cx Nom (Unsp spec) (1+) Rare Alcaligenes faecalis Abnormal [facility] Bacteria identified Cx Nom (Unsp spec) Negative [facility] Wound Cultureon 04-29-2024 WC Alcaligenes faecalis ssp [...] R Vancomycin Islt CORNEL 1 S Normal [facility] Comment on above: Performed By: #### M 100.2000, M100.3000 #### [facility] [address] [place], [address] Bacteria identifiedon 2024 Bacteria identified Cx Nom (Unsp spec) Normal [facility] Comment on above: Performed By: #### 6 463-4 ####JANETH Galo ([id number])[facility] ([facility])[address] [place] [address] Bacteria identified Cx Nom (Unsp spec) Abnormal [facility] Comment on above: Performed By: #### 6 463-4 ####JANETH Galo ([id number])[facility] ([facility])[address] [place] [address] Bacteria identified Cx Nom (Unsp spec) Abnormal [facility] Comment on above: Performed By: #### 6 463-4 ####JANETH Galo ([id number])[facility] ([facility])[address] [place] [address] Bacteria identified Cx Nom (Unsp spec) Abnormal [facility] Comment on above: Performed By: #### 6 463-4 ####JANETH Galo ([id number])[facility] ([facility])[address] [place] [address] Basic metabolic 2000 panelon 04-28-2024 Anion gap [Moles/Vol] 13 mmol/L 10 - 2 0 mmol/L [facility] Calcium [Mass/Vol] 8.8 mg/dL 8.6 - 10. 6 mg/dL [facility] Chloride [Moles/Vol] 103 mmol/L 98 - 10 7 mmol/L [facility] CO2 [Moles/Vol] 23 mmol/L 21 - 32 mmol/L [facility] Creatinine [Mass/Vol] 1.06 mg/dL High 0.50 - 1.05 mg/dL [facility] GFR/1.73 sq M.predicted among non-blacks MDRD (S/P/Bld) [Vol rate/Area] 63 mL/min/{1.73_m2} - PINF [facility] Glucose [Mass/Vol] 95 mg/dL 74 - 99 mg/dL [facility] Interpretation and review of laboratory results Abnormal [facility] Potassium [Moles/Vol] 4.5 mmol/L 3.5 - 5.3 mmol/L [facility] Sodium [Moles/Vol] 134 mmol/L Low 136 - 145 mmol/L [facility] Urea nitrogen [Mass/Vol] 9 mg/dL 6 - 23 mg/dL [facility] Anion gap [Moles/Vol] 13 mmol/L Normal 10-20 [facility] Comment on above: Performed By: #### 2 4321-2 ####JANETH Galo ([id number])[facility] ([facility])[address] [place] [address] Calcium [Mass/Vol] 8.8 mg/dL Normal 8.6-10.6 [facility] Comment on above: Performed By: #### 2 4321-2 ####JANETH GRAFF L ([id number])[facility] ([facility])[address]471 [place] [address] Chloride [Moles/Vol] 103 mmol/L Normal 98-107 [facility] Comment on above: Performed By: #### 2 4321-2 ####JANETH GRAFF L ([id number])[facility] ([facility])[address] [place] [address] CO2 [Moles/Vol] 23 mmol/L Normal 21-32 [facility] Comment on above: Performed By: #### 2 4321-2 ####JANETH GRAFF L ([id number])[facility] ([facility])[address] [place] [address] Creatinine [Mass/Vol] 1.06 mg/dL High 0.50-1.05 [facility] Comment on above: Performed By: #### 2 4321-2 ####JANETH RANGELER L ([id number])[facility] ([facility])[address] [place] [address] Glomerular filtration rate/1.73 sq M.predicted 63 mL/min/1.73m*2 Normal >60 [facility] Comment on above: Result Comment: Calc ulations of estimated GFR are performed using the 2020 CKD-EPI Study Refit equation without the race variable for the IDMS-Traceable creatinine methods.https://jasn.asnjournals.org/content/early/ N.3389790169 Performed By: #### 2 4321-2 ####JANETH GRAFF L ([id number])[facility] ([facility])[address]683 [place] [address] Glucose [Mass/Vol] 95 mg/dL Normal 74-99 [facility] Comment on above: Performed By: #### 2 4321-2 ####JANETH CONNORMOTZER L ([id number])[facility] ([facility])[address] [place] [address] Potassium [Moles/Vol] 4.5 mmol/L Normal 3.5-5.3 [facility] Comment on above: Performed By: #### 2 4321-2 ####JANETH CONNORMOTZER L ([id number])[facility] ([facility])[address] [place] [address] Sodium [Moles/Vol] 134 mmol/L Low 136-145 [facility] Comment on above: Performed By: #### 2 4321-2 ####JANETH CONNORMOTZER L ([id number])[facility] ([facility])[address]462 [place] [address] Urea nitrogen [Mass/Vol] 9 mg/dL Normal 6-23 [facility] Comment on above: Performed By: #### 2 4321-2 ####JANETH CONNORMOTZER L ([id number])[facility] ([facility])[address] [place] [address] Blood type and Indirect anti body screen panel (Bld)on 04-28-2024 ABO group Nom (Bld) A [facility] Blood group antibody screen Ql Negative [facility] D Ag Ql (Bld) Positive [facility] ABO group Nom (Bld) A Normal [facility] Comment on above: Performed By: #### 3 4532-2 ####JANETH Galo ([id number])[facility] ([facility] [address] Blood group antibody screen Ql Negative Normal [facility] Comment on above: Performed By: #### 3 4532-2 ####JANETH Galo ([id number])[facility] ([facility])[address] [place] [address] D Ag Ql (Bld) Positive Normal [facility] Comment on above: Performed By: #### 3 4532-2 ####JANETH Galo ([id number])[facility] ([facility])[address] [facility] [place] [address] CBC panel Auto (Bld)on 04-28 Erythrocyte distribution width (RBC) [Ratio] 18.5 % High 11.5 - 14.5 % [facility] Hematocrit (Bld) [Volume fraction] 31.8 % Low 36.0 - 46.0 % [facility] Hemoglobin (Bld) [Mass/Vol] 9 g/dL Low 12.0 - 16.0 g/dL [facility] Interpretation and review of laboratory results Abnormal [facility] MCH (RBC) [Entitic mass] 24.4 pg Low 26.0 - 34.0 pg [facility] MCHC (RBC) [Mass/Vol] 28.3 g/dL Low 32.0 - 36.0 g/dL [facility] MCV (RBC) [Entitic vol] 86 fL 80 - 100 fL [facility] Nucleated RBC/100 WBC (Bld) [Ratio] 0.3 % High [facility] Platelets (Bld) [#/Vol] 743 10*3/uL [facility] RBC (Bld) [#/Vol] 3.69 10*6/uL [facility] WBC (Bld) [#/Vol] 11.4 10*3/uL [facility] Erythrocyte distribution width (RBC) [Ratio] 18.5 % High 11.5-14.5 [facility] Comment on above: Performed By: #### 5 8410-2 ####JANETH Galo ([id number])[facility] ([facility])[address] [place] [address] Hematocrit (Bld) [Volume fraction] 31.8 % Low 36.0-46.0 [facility] Comment on above: Performed By: #### 5 8410-2 ####JANETH Galo ([id number])[facility] ([facility])[address] [place] [address] Hemoglobin (Bld) [Mass/Vol] 9.0 g/dL Low 12.0-16.0 [facility] Comment on above: Performed By: #### 5 8410-2 ####JANETH Galo ([id number])[facility] ([facility])[address] [place] [address] MCH (RBC) [Entitic mass] 24.4 pg Low 26.0-34.0 [facility] Comment on above: Performed By: #### 5 8410-2 ####JANETH Galo ([id number])[facility] ([facility])[address] [place] [address] MCHC (RBC) [Mass/Vol] 28.3 g/dL Low 32.0-36.0 [facility] Comment on above: Performed By: #### 5 8410-2 ####JANETH Galo ([id number])[facility] ([facility])[address] [place] [address] MCV (RBC) [Entitic vol] 86 fL Normal 80-100 [facility] Comment on above: Performed By: #### 5 8410-2 ####JANETH Galo ([id number])[facility] ([facility])[id number] [place] [address] 40269 Nucleated RBC/100 WBC (Bld) [Ratio] 0.3 /100 WBCs High 0.0-0.0 [facility] Comment on above: Performed By: #### 5 8410-2 ####JANETH Galo ([id number])[facility] ([facility])[id number] [place] [address] 05687 Platelets (Bld) [#/Vol] 743 x10*3/uL High 150-450 [facility] Comment on above: Performed By: #### 5 8410-2 ####JANETH Galo ([id number])[facility] ([facility])[address] [place] [address] 33605 RBC (Bld) [#/Vol] 3.69 x10*6/uL Low 4.00-5.20 [facility] Comment on above: Performed By: #### 5 8410-2 ####JANETH Galo ([id number])[facility] ([facility])[address] [place] [address] 93630 WBC (Bld) [#/Vol] 11.4 x10*3/uL High 4.4-11.3 [facility] Comment on above: Performed By: #### 5 8410-2 ####JANETH Galo ([id number])[facility] ([facility])[id number] [place] [address] 84007 Fungus identifiedon 04-29-19 25 Fungus identified Cx Nom (Unsp spec) [facility] Comment on above: Performed By: #### 5 80-1 ####JANETH Galo ([id number])[facility] ([facility])[address] [place] [address] 76487 Fungus identified Cx Nom (Unsp spec) [facility] Comment on above: Performed By: #### 5 80-1 ####JANETH Galo ([id number])[facility] ([facility])[address] [place] [address] Fungus identified Cx Nom (Unsp spec) Abnormal [facility] Comment on above: Performed By: #### 5 80-1 ####JANETH Galo ([id number])[facility] ([facility])[address] [place] [address] Fungus identified Cx Nom (Unsp spec) [facility] Comment on above: Performed By: #### 5 80-1 ####JANETH Galo ([id number])[facility] ([facility])[address] [place] [address] NICOTINE + METABOLITES, URIN Ita 04-28-2024 Anabasine (U) [Mass/Vol] <5 Normal [facility] Comment on above: Performed By: #### N ICMU ####[facility] ([facility]) ([id number])500 [place] [address] Cotinine (U) [Mass/Vol] 32 ng/mL [facility] Comment on above: Performed By: #### N ICMU ####[facility] ([facility]) ([id number])500 [place] [address] Nicotine (U) [Mass/Vol] <15 [facility] Comment on above: Result Comment: INTE RPRETIVE INFORMATION: Nicotine and Metabolites, Urine, QuantitativeMethodology: Quantitative Liquid Chromatography-Tandem MassSpectrometryPositive cutoff:Nicotine 15 ng/mLCotinine 15 ng/bV9-LB-Nxzjcwdp 50 ng/mLAnabasine 5 ng/mLFor medical purposes only; [...] was developed and its performance characteristicsdetermined by [facility]. It has not been cleared orapproved by the US Food and Drug Administration. This test wasperformed in a CLIA certified laboratory and is intended forclinical purposes.Performed By: [facility] [place], [place] [address]Rmyjveslns Director: Jasper Larry MD, PhDCLIA Number: [id number] Performed By: #### N ICMU ####[facility] ([facility]) ([id number])500 [place] [address] Ndkmu-5-Bbtyfoffnidrr ne (U) [Mass/Vol] 1178 ng/mL Normal [facility] Comment on above: Performed By: #### N ICMU ####[facility] ([facility]) ([id number])500 [place] [address] Basic metabolic 2000 panelon 04-27-2024 Anion gap [Moles/Vol] 11 mmol/L 10 - 2 0 mmol/L [facility] Calcium [Mass/Vol] 8.5 mg/dL Low 8.6 - 10. 6 mg/dL [facility] Chloride [Moles/Vol] 106 mmol/L 98 - 10 7 mmol/L [facility] CO2 [Moles/Vol] 26 mmol/L 21 - 32 mmol/L [facility] Creatinine [Mass/Vol] 0.73 mg/dL 0.50 - 1.05 mg/dL [facility] eGFR - PINF [facility] Glucose [Mass/Vol] 82 mg/dL 74 - 99 mg/dL [facility] Potassium [Moles/Vol] 4.1 mmol/L 3.5 - 5.3 mmol/L [facility] Sodium [Moles/Vol] 139 mmol/L 136 - 145 mmol/L [facility] Urea nitrogen [Mass/Vol] 8 mg/dL 6 - 23 mg/dL [facility] Anion gap [Moles/Vol] 11 mmol/L Normal 10-20 [facility] Comment on above: Performed By: #### 2 4321-2 ####JANETH Galo ([id number])[facility] ([facility])[address] [place] [address] Calcium [Mass/Vol] 8.5 mg/dL Low 8.6-10.6 [facility] Comment on above: Performed By: #### 2 4321-2 ####JANETH GRAFF L ([id number])[facility] ([facility])[address] [place] [address] Chloride [Moles/Vol] 106 mmol/L Normal 98-107 [facility] Comment on above: Performed By: #### 2 4321-2 ####JANETH GRAFF L ([id number])[facility] ([facility])[address] [place] [address] CO2 [Moles/Vol] 26 mmol/L Normal 21-32 [facility] Comment on above: Performed By: #### 2 4321-2 ####JANETH Galo (10506)[facility] ([facility])[address] [place] [address] Creatinine [Mass/Vol] 0.73 mg/dL Normal 0.50-1.05 [facility] Comment on above: Performed By: #### 2 4321-2 ####JANETH Galo ([id number])[facility] ([facility])[address] [place] [address] GFR/1.73 sq M.predicted MDRD (S/P/Bld) [Vol rate/Area] mL/min/{1.73_m2} Normal >60 [facility] Comment on above: Result Comment: Calc ulations of estimated GFR are performed using the 2020 CKD-EPI Study Refit equation without the race variable for the IDMS-Traceable creatinine methods.https://jasn.asnjournals.org/content/early/ N.6999085740 Performed By: #### 2 4321-2 ####JANETH Galo ([id number])[facility] ([facility])[address] [place] [address] Glucose [Mass/Vol] 82 mg/dL Normal 74-99 [facility] Comment on above: Performed By: #### 2 4321-2 ####JANETH Galo ([id number])[facility] ([facility])[address] [place] [address] Potassium [Moles/Vol] 4.1 mmol/L Normal 3.5-5.3 [facility] Comment on above: Performed By: #### 2 4321-2 ####JANETH Galo (04989)[facility] ([facility])[address] [place] [address] Sodium [Moles/Vol] 139 mmol/L Normal 136-145 [facility] Comment on above: Performed By: #### 2 4321-2 ####JANETH Galo ([id number])[facility] ([facility])[address] [place] [address] Urea nitrogen [Mass/Vol] 8 mg/dL Normal 6-23 [facility] Comment on above: Performed By: #### 2 4321-2 ####JANETH GRAFF L ([id number])[facility] ([facility])[id number] [place] [address] 93958 CBC panel Auto (Bld)on 04-27 Erythrocyte distribution width (RBC) [Ratio] 18 % High 11.5 - 14.5 % [facility] Hematocrit (Bld) [Volume fraction] 31.4 % Low 36.0 - 46.0 % [facility] Hemoglobin (Bld) [Mass/Vol] 8.7 g/dL Low 12.0 - 16.0 g/dL [facility] Interpretation and review of laboratory results Abnormal [facility] MCH (RBC) [Entitic mass] 24.1 pg Low 26.0 - 34.0 pg [facility] MCHC (RBC) [Mass/Vol] 27.7 g/dL Low 32.0 - 36.0 g/dL [facility] MCV (RBC) [Entitic vol] 87 fL 80 - 100 fL [facility] Nucleated RBC/100 WBC (Bld) [Ratio] 0.2 % High [facility] Platelets (Bld) [#/Vol] 745 10*3/uL High [facility] RBC (Bld) [#/Vol] 3.61 10*6/uL Low [facility] WBC (Bld) [#/Vol] 12.1 10*3/uL High [facility] Erythrocyte distribution width (RBC) [Ratio] 18.0 % High 11.5-14.5 [facility] Comment on above: Performed By: #### 5 8410-2 ####JANETH Galo (31985)[facility] ([facility])[id number] [place] [address] 93294 Hematocrit (Bld) [Volume fraction] 31.4 % Low 36.0-46.0 [facility] Comment on above: Performed By: #### 5 8410-2 ####JANETH Galo ([id number])[facility] ([facility])[address] [place] [address] Hemoglobin (Bld) [Mass/Vol] 8.7 g/dL Low 12.0-16.0 [facility] Comment on above: Performed By: #### 5 8410-2 ####JANETH Galo ([id number])[facility] ([facility])[address] [place] [address] MCH (RBC) [Entitic mass] 24.1 pg Low 26.0-34.0 [facility] Comment on above: Performed By: #### 5 8410-2 ####JANETH Galo ([id number])[facility] ([facility])[address] [place] [address] MCHC (RBC) [Mass/Vol] 27.7 g/dL Low 32.0-36.0 [facility] Comment on above: Performed By: #### 5 8410-2 ####JANETH Galo (21973)[facility] ([facility])[address] [place] [address] MCV (RBC) [Entitic vol] 87 fL Normal 80-100 [facility] Comment on above: Performed By: #### 5 8410-2 ####JANETH Galo ([id number])[facility] ([facility])[address] [place] [address] Nucleated RBC/100 WBC (Bld) [Ratio] 0.2 /100 WBCs High 0.0-0.0 [facility] Comment on above: Performed By: #### 5 8410-2 ####JANETH Galo (55793)[facility] ([facility])[address] [place] [address] Platelets (Bld) [#/Vol] 745 x10*3/uL High 150-450 [facility] Comment on above: Performed By: #### 5 8410-2 ####JANETH Galo ([id number])[facility] ([facility])[address] [place] [address] 78269 RBC (Bld) [#/Vol] 3.61 x10*6/uL Low 4.00-5.20 [facility] Comment on above: Performed By: #### 5 8410-2 ####JANETH Galo ([id number])[facility] ([facility])[address] [place] [address] 56083 WBC (Bld) [#/Vol] 12.1 x10*3/uL High 4.4-11.3 [facility] Comment on above: Performed By: #### 5 8410-2 ####JANETH Galo ([id number])[facility] ([facility])[address] [place] [address] CT Lower leg - right W contr ast Fritz 04-27-2024 [facility] MMODAL U[facility] MMODAL [facility] Work Phone: CT Lower leg - right W contr ast IVOrdered By: Jordan Calvin on 04-27-2024 [facility] Work Phone: Magnesiumon 04-27-2024 Magnesium [Mass/Vol] 2.36 mg/dL 1.60 - 2.40 mg/dL [facility] Magnesium [Mass/Vol] 2.36 mg/dL Normal 1.60-2.40 [facility] Comment on above: Performed By: #### 1 9123-9 ####JANETH Galo ([id number])[facility] ([facility])[address] [place] [address] 88871 Magnesium [Mass/Vol]on 04-27 Interpretation and review of laboratory results [facility] NICOTINE + METABOLITES, URIN Ita 04-27-2024 Anabasine (U) [Mass/Vol] <5 [facility] Comment on above: Performed By: #### N ICMU ####[facility] ([facility]) ([id number])500 [place] [address] Cotinine (U) [Mass/Vol] 74 ng/mL [facility] Comment on above: Performed By: #### N ICMU ####[facility] ([facility]) ([id number])500 [place] [address] Nicotine (U) [Mass/Vol] <15 [facility] Comment on above: Result Comment: INTE RPRETIVE INFORMATION: Nicotine and Metabolites, Urine, QuantitativeMethodology: Quantitative Liquid Chromatography-Tandem MassSpectrometryPositive cutoff:Nicotine 15 ng/mLCotinine 15 ng/pO2-AC-Uadmkf[address] 50 ng/mLAnabasine 5 ng/mLFor medical purposes only; [...] was developed and its performance characteristicsdetermined by [facility]. It has not been cleared orapproved by the [place] Food and Drug Administration. This test wasperformed in a CLIA certified laboratory and is intended forclinical purposes.Performed By: [facility] [place], [place] [address]Uueigfarie Director: Jasper Larry MD, PhDCLIA Number: [id number] Performed By: #### N ICMU ####[facility] ([facility]) ([id number])500 [place] [address] Wciap-1-Mlozgxfpfkcov ne (U) [Mass/Vol] 1686 ng/mL Normal [facility] Comment on above: Performed By: #### N ICMU ####[facility] ([facility]) ([id number])500 [place] [address] No Panel Informationon 04-27 Interpretation and review of laboratory results Abnormal [facility] Vancomycinon 04-27-2024 Vancomycin [Mass/Vol] 20.9 ug/mL High 5.0 - 20.0 ug/mL [facility] Vancomycin [Mass/Vol] 20.9 ug/mL High 5.0-20.0 Uni [facility] Comment on above: Order Comment: [...] Performed By: #### 2 0578-1 ####JANETH Galo ([id number])[facility] ([facility])[address] [place] [address] Vancomycin [Mass/Vol] 23.1 ug/mL High 5.0 - 20.0 ug/mL [facility] Vancomycin [Mass/Vol] 23.1 ug/mL High 5.0-20.0 [facility] Comment on above: Order Comment: Vanco [...] Performed By: #### 2 0578-1 ####JANETH Galo ([id number])[facility] ([facility])[address] [place], [place] [address] Vancomycin [Mass/Vol]on 04-17 Interpretation and review of laboratory results Abnormal [facility] Bacteria identifiedon 2024 Bacteria identified Cx Nom (Unsp spec) Abnormal [facility] Comment on above: Performed By: #### 6 463-4 ####JANETH Galo ([id number])[facility] ([facility])[address] [place] [address] Blood type and Indirect anti body screen panel (Bld)on 04-26-2024 ABO group Nom (Bld) [facility] Blood group antibody screen Ql Negative [facility] D Ag Ql (Bld) Positive [facility] CNPSridevi 04-26-2024 MALIN Telephone (FPWADS) ----- DEIDRA DE LA CRUZ ([id number]) 1970 F Date Time Provider Department 04/26/24 BIJAN ELMORE During your visit today, we recorded the following information about you: Carlo Miranda LPN 04/26/2024 3:45 PM Signed Received ed visit summary from [facility]. Placed in provider's inbox for review. Route to MA scanning Allergies As of Date: 04/26/2024 Noted Allergy Reaction PENICILLIN 06/05/2015 16 - Unknown Date Reviewed: 11/18/2023 Reviewed by: Carlo Miranda LPN - Fully Assessed Reason for Visit: Received Outside Medical Records [4105] Cmt: [facility] ED Prescriptions as of 04/26/2024 - [...] Status:Closed by CARLO MIRANDA on 04/26/24 Normal [facility] CT Lower leg - right W contr ast Fritz 04-26-2024 Radiology Study observation (narrative) [facility] Work Phone: CT TIBIA FIBULA RIGHT W IV C ONTRASTon 04-26-2024 CT TIBIA FIBULA RIGHT W IV CONTRAST Normal [facility] Comprehensive metabolic 2000 panelon 04-26-2024 Albumin BCP dye [Mass/Vol] 3.3 g/dL Low 3.4 - 5.0 g/dL [facility] ALP [Catalytic activity/Vol] 98 U/L 33 - 110 U/L [facility] ALT With P-5'-P [Catalytic activity/Vol] 9 U/L 7 - 45 U/L [facility] Anion gap [Moles/Vol] 13 mmol/L 10 - 2 0 mmol/L [facility] AST With P-5'-P [Catalytic activity/Vol] 18 U/L 9 - 39 U/L [facility] Bilirubin [Mass/Vol] 0.2 mg/dL 0.0 - 1 .2 mg/dL [facility] Calcium [Mass/Vol] 8.9 mg/dL 8.6 - 10. 6 mg/dL [facility] Chloride [Moles/Vol] 104 mmol/L 98 - 10 7 mmol/L [facility] CO2 [Moles/Vol] 25 mmol/L 21 - 32 mmol/L [facility] Creatinine [Mass/Vol] 0.7 mg/dL 0.50 - 1.05 mg/dL [facility] eGFR - PINF [facility] Glucose [Mass/Vol] 112 mg/dL High 74 - 99 mg/dL [facility] Interpretation and review of laboratory results Abnormal [facility] Potassium [Moles/Vol] 4 mmol/L 3.5 - 5.3 mmol/L [facility] Protein [Mass/Vol] 6.8 g/dL 6.4 - 8.2 g/dL [facility] Sodium [Moles/Vol] 138 mmol/L 136 - 145 mmol/L [facility] Urea nitrogen [Mass/Vol] 8 mg/dL 6 - 23 mg/dL [facility] Albumin BCP dye [Mass/Vol] 3.3 g/dL Low 3.4-5.0 [facility] Comment on above: Performed By: #### 2 4323-8 ####JANETH Galo ([id number])[facility] ([facility])[address] [place] [address] ALP [Catalytic activity/Vol] 98 U/L Normal 33-110 [facility] Comment on above: Performed By: #### 2 4323-8 ####JANETH Galo (82281)[facility] ([facility])[address] [place] [address] ALT With P-5'-P [Catalytic activity/Vol] 9 U/L Normal 7-45 [facility] Comment on above: Result Comment: Tomasa ents treated with Sulfasalazine may generate falsely decreased results for ALT. Performed By: #### 2 4323-8 ####JANETH Galo ([id number])[facility] ([facility])[address] [place] [address] Anion gap [Moles/Vol] 13 mmol/L Normal 10-20 [facility] Comment on above: Performed By: #### 2 4323-8 ####JANETH Galo ([id number])[facility] ([facility])[address] [place] [address] AST With P-5'-P [Catalytic activity/Vol] 18 U/L Normal 9-39 [facility] Comment on above: Performed By: #### 2 4323-8 ####JANETH Galo ([id number])[facility] ([facility])[address] [place] [address] Bilirubin [Mass/Vol] 0.2 mg/dL Normal 0.0-1.2 [facility] Comment on above: Performed By: #### 2 4323-8 ####JANETH Galo ([id number])[facility] ([facility])[address] [place] [address] Calcium [Mass/Vol] 8.9 mg/dL Normal 8.6-10.6 [facility] Comment on above: Performed By: #### 2 4323-8 ####JANETH Galo ([id number])[facility] ([facility])[address] [place] [address] Chloride [Moles/Vol] 104 mmol/L Normal 98-107 [facility] Comment on above: Performed By: #### 2 4323-8 ####JANETH Galo ([id number])[facility] ([facility])[address] [place] [address] CO2 [Moles/Vol] 25 mmol/L Normal 21-32 [facility] Comment on above: Performed By: #### 2 4323-8 ####JANETH Galo ([id number])[facility] ([facility])[address] [place] [address] Creatinine [Mass/Vol] 0.70 mg/dL Normal 0.50-1.05 [facility] Comment on above: Performed By: #### 2 4323-8 ####JANETH GRAFF L (04892)[facility] ([facility])[address] [place] [address] GFR/1.73 sq M.predicted MDRD (S/P/Bld) [Vol rate/Area] mL/min/{1.73_m2} Normal >60 [facility] Comment on above: Result Comment: Calc ulations of estimated GFR are performed using the 2020 CKD-EPI Study Refit equation without the race variable for the IDMS-Traceable creatinine methods.https://jasn.asnjournals.org/content/early/ N.9850508600 Performed By: #### 2 4323-8 ####JANETH GRAFF L ([id number])[facility] ([facility])[address] [place] [address] Glucose [Mass/Vol] 112 mg/dL High 74-99 [facility] Comment on above: Performed By: #### 2 4323-8 ####JANETH GRAFF L ([id number])[facility] ([facility])[address] [place] [address] Potassium [Moles/Vol] 4.0 mmol/L Normal 3.5-5.3 [facility] Comment on above: Performed By: #### 2 4323-8 ####JANETH GRAFF L (12551)[facility] ([facility])[address] [place] [address] Protein [Mass/Vol] 6.8 g/dL Normal 6.4-8.2 [facility] Comment on above: Performed By: #### 2 4323-8 ####JANETH GRAFF L (85602)[facility] ([facility])[address] [place] [address] Sodium [Moles/Vol] 138 mmol/L Normal 136-145 [facility] Comment on above: Performed By: #### 2 4323-8 ####JANETH Galo ([id number])[facility] ([facility])[address] [place] [address] Urea nitrogen [Mass/Vol] 8 mg/dL Normal 6-23 [facility] Comment on above: Performed By: #### 2 4323-8 ####JANETH Galo ([id number])[facility] ([facility])[address] [place] [address] ESR Westergren method (Bld) [Velocity]on 04-26-2024 ESR (Bld) [Velocity] 70 mm/h High 0 - 30 mm/h [facility] Interpretation and review of laboratory results Abnormal [facility] Gram Stainon 04-26-2024 GS Gram Stain 3+ White Blood Cells Rare Gram negative rods Rare Gram positive cocci No Epithelial cells Normal [facility] Comment on above: Performed By: #### M 100.2000, M100.3000 #### [facility] [address] [place], [place], [address] No Panel Informationon 04-26 Extra Tube Hold for add-ons. [facility] PST Topon 04-26-2024 Extra Tube Hold for add-ons. [facility] XR Chest Single viewon 04-26 [facility] MM[facility]AL UH ODAL [facility] Work Phone: [facility] Work Phone: XR Femur - right 2 Viewson 0 04-26-2024 [facility] MM[facility]AL [facility] MMODAL [facility] Work Phone: XR Femur - right 2 ViewsOrde red By: Lupis Tabor on 04-26-2024 [facility] Work Phone: Absolute neutrophil countOrd ered By: Pan Abarca on 04-25-2024 Neutrophils (Bld) [#/Vol] 8.8 10*3/uL High 2.0-7.7 [facility] Anion gap in Serum or Plasma Ordered By: Pan Abarca on 04-25-2024 Anion gap [Moles/Vol] 11 mmol/L - [facility] BUN/creatinine ratioOrdered By: Pan Abarca on 04-25-2024 Urea nitrogen/Creatinine [Mass ratio] 11.9 mg/mg - [facility] Basic Metabolic Profile (BMP )on 04-25-2024 BUN/CRE 11.9 RATIO Normal - [facility] Comment on above: Performed By: #### L 500.2500, L100.0100 #### [facility] [address] [place], [address] Calcium [Mass/Vol] 9.0 mg/dL Normal 7.6-11.0 [facility] Comment on above: Performed By: #### L 500.2500, L100.0100 #### [facility] [address] [place], [address] Chloride [Moles/Vol] 102 mmol/L Normal 98-108 [facility] Comment on above: Performed By: #### L 500.2500, L100.0100 #### [facility] [address] [place], [address] CO2 [Moles/Vol] 25.7 mmol/L Normal 21.0-32.0 [facility] Comment on above: Performed By: #### L 500.2500, L100.0100 #### [facility] [address] [place], [place], [address] Creatinine [Mass/Vol] 0.78 mg/dL Normal 0.70-1.20 [facility] Comment on above: Performed By: #### L 500.2500, L100.0100 #### [facility] [address] [place], [address] ECRCL 99.51 ml/min Normal 50-250 [facility] Comment on above: Performed By: #### L 500.2500, L100.0100 #### [facility] [address] [place], [address] GAP 11 Normal 5-15 [facility] Comment on above: Performed By: #### L 500.2500, L100.0100 #### [facility] [address] [place], [address] GFR/1.73 sq M.predicted among non-blacks MDRD (S/P/Bld) [Vol rate/Area] 92 mL/min/{1.73_m2} Normal >60 [facility] Comment on above: Result Comment: mL/m in/1.73m2 CKD-EPI Creatinine Equation (2020) Performed By: #### L 500.2500, L100.0100 #### [facility] [address] [place], [address] Glucose [Mass/Vol] 127 mg/dL High 70-99 [facility] Comment on above: Performed By: #### L 500.2500, L100.0100 #### [facility] [address] [place], [address] Potassium [Moles/Vol] 4.0 mmol/L Normal 3.3-5.1 [facility] Comment on above: Performed By: #### L 500.2500, L100.0100 #### [facility] [address] [place], [address] Sodium [Moles/Vol] 138 mmol/L Normal 133-145 [facility] Comment on above: Performed By: #### L 500.2500, L100.0100 #### [facility] [address] [place], [address] Urea nitrogen [Mass/Vol] 9 mg/dL Normal 4-19 [facility] Comment on above: Performed By: #### L 500.2500, L100.0100 #### [facility] [place], [address] Basic metabolic 2000 panelon 04-25-2024 Anion gap [Moles/Vol] 13 mmol/L 10 - 2 0 mmol/L [facility] Calcium [Mass/Vol] 9.2 mg/dL 8.6 - 10. 6 mg/dL [facility] Chloride [Moles/Vol] 102 mmol/L 98 - 10 7 mmol/L [facility] CO2 [Moles/Vol] 26 mmol/L 21 - 32 mmol/L [facility] Creatinine [Mass/Vol] 0.7 mg/dL 0.50 - 1.05 mg/dL [facility] eGFR - PINF [facility] Glucose [Mass/Vol] 98 mg/dL 74 - 99 mg/dL [facility] Interpretation and review of laboratory results Normal [facility] Potassium [Moles/Vol] 4 mmol/L 3.5 - 5.3 mmol/L [facility] Sodium [Moles/Vol] 137 mmol/L 136 - 145 mmol/L [facility] Urea nitrogen [Mass/Vol] 8 mg/dL 6 - 23 mg/dL [facility] Anion gap [Moles/Vol] 13 mmol/L Normal 10-20 [facility] Comment on above: Performed By: #### 2 4321-2 ####JANETH Galo ([id number])[facility] ([facility])[address] [place] [address] Calcium [Mass/Vol] 9.2 mg/dL Normal 8.6-10.6 [facility] Comment on above: Performed By: #### 2 4321-2 ####JANETH Galo ([id number])[facility] ([facility])[address] [place] [address] Chloride [Moles/Vol] 102 mmol/L Normal 98-107 [facility] Comment on above: Performed By: #### 2 4321-2 ####JANETH Galo ([id number])[facility] ([facility])[address] [place] [address] CO2 [Moles/Vol] 26 mmol/L Normal 21-32 [facility] Comment on above: Performed By: #### 2 4321-2 ####JANETH Galo ([id number])[facility] ([facility])[address] [place] [address] Creatinine [Mass/Vol] 0.70 mg/dL Normal 0.50-1.05 [facility] Comment on above: Performed By: #### 2 4321-2 ####JANETH Galo ([id number])[facility] ([facility])[address] [place] [address] GFR/1.73 sq M.predicted MDRD (S/P/Bld) [Vol rate/Area] mL/min/{1.73_m2} Normal >60 [facility] Comment on above: Result Comment: Calc ulations of estimated GFR are performed using the 2020 CKD-EPI Study Refit equation without the race variable for the IDMS-Traceable creatinine methods.https://jasn.asnjournals.org/content/early/ N.5610307198 Performed By: #### 2 4321-2 ####JANETH Galo ([id number])[facility] ([facility])[address] [place] [address] Glucose [Mass/Vol] 98 mg/dL Normal 74-99 [facility] Comment on above: Performed By: #### 2 4321-2 ####JANETH Galo ([id number])[facility] ([facility])[address] [place] [address] Potassium [Moles/Vol] 4.0 mmol/L Normal 3.5-5.3 [facility] Comment on above: Performed By: #### 2 4321-2 ####JANETH Galo ([id number])[facility] ([facility])[address] [place] [address] Sodium [Moles/Vol] 137 mmol/L Normal 136-145 [facility] Comment on above: Performed By: #### 2 4321-2 ####JANETH Galo ([id number])[facility] ([facility])[address] [place] [address] Urea nitrogen [Mass/Vol] 8 mg/dL Normal 6-23 [facility] Comment on above: Performed By: #### 2 4321-2 ####JANETH Galo ([id number])[facility] ([facility])[address] [place] [address] Basophil percentageOrdered B y: Pan Abarca on 04-25-2024 Basophils/100 WBC (Bld) 0.6 % 0-1 [facility] Blood type and Indirect anti body screen panel (Bld)on 04-25-2024 ABO group Nom (Bld) A Normal [facility] Comment on above: Performed By: #### 3 4532-2 ####JANETH Galo ([id number])[facility] ([facility])[address] [place] [address] Blood group antibody screen Ql Negative [facility] Comment on above: Performed By: #### 3 4532-2 ####JANETH Galo ([id number])[facility] ([facility])[address] [facility] [address] D Ag Ql (Bld) Positive [facility] Comment on above: Performed By: #### 3 4532-2 ####JANETH Galo ([id number])[facility] ([facility])[address] [facility] [place] [address] C reactive proteinon 025 CRP [Mass/Vol] 10.02 mg/dL High <1.00 [facility] Comment on above: Performed By: #### 1 988-5 ####JANETH Galo ([id number])[facility] ([facility])[address] [place] [address] CRP [Mass/Vol] 10.04 mg/dL High <1.00 [facility] Comment on above: Performed By: #### 1 988-5 ####JANETH Galo ([id number])[facility] ([facility])[address] [place] [address] C-reactive proteinon 025 CRP [Mass/Vol] 10.02 mg/dL High NINF - 1.00 mg/dL [facility] CRP [Mass/Vol] 10.04 mg/dL High NINF - 1.00 mg/dL [facility] CBC W Auto Differential pane l (Bld)on 04-25-2024 Basophils (Bld) [#/Vol] 0.09 10*3/uL [facility] Basophils/100 WBC (Bld) 0.7 % 0.0 - 2.0 % [facility] Eosinophils (Bld) [#/Vol] 0.32 10*3/uL [facility] Eosinophils/100 WBC (Bld) 2.5 % 0.0 - 6.0 % [facility] Erythrocyte distribution width (RBC) [Ratio] 17.5 % High 11.5 - 14.5 % [facility] Hematocrit (Bld) [Volume fraction] 31.2 % Low 36.0 - 46.0 % [facility] Hemoglobin (Bld) [Mass/Vol] 9.3 g/dL Low 12.0 - 16.0 g/dL [facility] Immature granulocytes (Bld) [#/Vol] 0.07 10*3/uL [facility] Immature granulocytes/100 WBC (Bld) 0.6 % 0.0 - 0.9 % [facility] Interpretation and review of laboratory results Abnormal [facility] Lymphocytes (Bld) [#/Vol] 3.75 10*3/uL [facility] Lymphocytes/100 WBC (Bld) 29.6 % 13.0 - 44.0 % [facility] MCH (RBC) [Entitic mass] 24 pg Low 26.0 - 34.0 pg [facility] MCHC (RBC) [Mass/Vol] 29.8 g/dL Low 32.0 - 36.0 g/dL [facility] MCV (RBC) [Entitic vol] 80 fL 80 - 100 fL [facility] Monocytes (Bld) [#/Vol] 1.16 10*3/uL [facility] Monocytes/100 WBC (Bld) 9.1 % 2.0 - 10.0 % [facility] Neutrophils (Bld) [#/Vol] 7.3 10*3/uL [facility] Neutrophils/100 WBC (Bld) 57.5 % 40.0 - 80.0 % [facility] Nucleated RBC/100 WBC (Bld) [Ratio] 0.5 % [facility] Platelets (Bld) [#/Vol] 768 10*3/uL High [facility] RBC (Bld) [#/Vol] 3.88 10*6/uL Low [facility] WBC (Bld) [#/Vol] 12.7 10*3/uL High [facility] Basophils (Bld) [#/Vol] 0.09 x10*3/uL Normal 0.00-0.10 [facility] Comment on above: Performed By: #### 5 7021-8 ####JANETH Galo ([id number])[facility] ([facility])[address] [place] [address] Basophils/100 WBC (Bld) 0.7 % Normal 0.0-2.0 [facility] Comment on above: Performed By: #### 5 7021-8 ####JANETH Galo ([id number])[facility] ([facility])[address] [place] [address] Eosinophils (Bld) [#/Vol] 0.32 x10*3/uL Normal 0.00-0.70 [facility] Comment on above: Performed By: #### 5 7021-8 ####JANETH Galo ([id number])[facility] ([facility])[address] [place] [address] Eosinophils/100 WBC (Bld) 2.5 % Normal 0.0-6.0 [facility] Comment on above: Performed By: #### 5 7021-8 ####JANETH Galo ([id number])[facility] ([facility])[address] [place] [address] Erythrocyte distribution width (RBC) [Ratio] 17.5 % High 11.5-14.5 [facility] Comment on above: Performed By: #### 5 7021-8 ####JANETH Galo ([id number])[facility] ([facility])[address] [place] [address] Hematocrit (Bld) [Volume fraction] 31.2 % Low 36.0-46.0 [facility] Comment on above: Performed By: #### 5 7021-8 ####JANETH Galo ([id number])[facility] ([facility])[address] [place] [address] Hemoglobin (Bld) [Mass/Vol] 9.3 g/dL Low 12.0-16.0 [facility] Comment on above: Performed By: #### 5 7021-8 ####JANETH Galo ([id number])[facility] ([facility])[address] [place] [address] Immature granulocytes (Bld) [#/Vol] 0.07 x10*3/uL Normal 0.00-0.70 [facility] Comment on above: Performed By: #### 5 7021-8 ####JANETH Galo ([id number])[facility] ([facility])[address] [place] [address] Immature granulocytes/100 WBC (Bld) 0.6 % Normal 0.0-0.9 [facility] Comment on above: Result Comment: Catrachita ture Granulocyte Count (IG) includes promyelocytes, myelocytes and metamyelocytes but does not include bands. Percent differential counts (%) should be interpreted in the context of the absolute cell counts (cells/UL). Performed By: #### 5 7021-8 ####JANETH Galo ([id number])[facility] ([facility])[id number] [place] [address] Lymphocytes (Bld) [#/Vol] 3.75 x10*3/uL Normal 1.20-4.80 [facility] Comment on above: Performed By: #### 5 7021-8 ####JANETH aGlo ([id number])[facility] ([facility])[id number] [place] [address] Lymphocytes/100 WBC (Bld) 29.6 % Normal 13.0-44.0 [facility] Comment on above: Performed By: #### 5 7021-8 ####JANETH Galo ([id number])[facility] ([facility])[address] [place] [address] MCH (RBC) [Entitic mass] 24.0 pg Low 26.0-34.0 [facility] Comment on above: Performed By: #### 5 7021-8 ####JANETH Galo ([id number])[facility] ([facility])[address] [place] [address] MCHC (RBC) [Mass/Vol] 29.8 g/dL Low 32.0-36.0 [facility] Comment on above: Performed By: #### 5 7021-8 ####JANETH Galo ([id number])[facility] ([facility])[address] [place] [address] MCV (RBC) [Entitic vol] 80 fL Normal 80-100 [facility] Comment on above: Performed By: #### 5 7021-8 ####JANETH Galo ([id number])[facility] ([facility])[address] [place] [address] Monocytes (Bld) [#/Vol] 1.16 x10*3/uL High 0.10-1.00 [facility] Comment on above: Performed By: #### 5 7021-8 ####JANETH Galo ([id number])[facility] ([facility])[id number] [place] [address] Monocytes/100 WBC (Bld) 9.1 % Normal 2.0-10.0 [facility] Comment on above: Performed By: #### 5 7021-8 ####JANETH Galo ([id number])[facility] ([facility])[address] [place] [address] Neutrophils (Bld) [#/Vol] 7.30 x10*3/uL Normal 1.20-7.70 [facility] Comment on above: Result Comment: Perc ent differential counts (%) should be interpreted in the context of the absolute cell counts (cells/uL). Performed By: #### 5 7021-8 ####JANETH Galo (50713)[facility] ([facility])[address] [place] [address] Neutrophils/100 WBC (Bld) 57.5 % Normal 40.0-80.0 [facility] Comment on above: Performed By: #### 5 7021-8 ####JANETH Galo (80603)[facility] ([facility])[address] [place] [address] Nucleated RBC/100 WBC (Bld) [Ratio] 0.5 /100 WBCs High 0.0-0.0 [facility] Comment on above: Performed By: #### 5 7021-8 ####JANETH Galo ([id number])[facility] ([facility])[address] [place] [address] Platelets (Bld) [#/Vol] 768 x10*3/uL High 150-450 [facility] Comment on above: Performed By: #### 5 7021-8 ####JANETH Galo (54053)[facility] ([facility])[address] [place] [address] RBC (Bld) [#/Vol] 3.88 x10*6/uL Low 4.00-5.20 [facility] Comment on above: Performed By: #### 5 7021-8 ####JANETH Galo (07957)[facility] ([facility])[address] [place] [address] WBC (Bld) [#/Vol] 12.7 x10*3/uL High 4.4-11.3 [facility] Comment on above: Performed By: #### 5 7021-8 ####JANETH Galo ([id number])[facility] ([facility])[address] [place], [place] [address] CRP [Mass/Vol]on 04-25-2024 Interpretation and review of laboratory results Abnormal [facility] Interpretation and review of laboratory results Abnormal [facility] Carbon dioxide, total [Moles /volume] in Central venous bloodOrdered By: Pan Abarca on 04-25-2024 CO2 [Moles/Vol] 25.7 mmol/L 21.0-32.0 [facility] Chloride assayOrdered By: Claire Abarca on 04-25-2024 Chloride [Moles/Vol] 102 mmol/L 98-108 [facility] ESR Westergren method (Bld) [Velocity]on 04-25-2024 ESR (Bld) [Velocity] 96 mm/h High 0 - 30 mm/h [facility] Interpretation and review of laboratory results Abnormal [facility] ESR (Bld) [Velocity] 70 mm/h High 0-30 [facility] Comment on above: Performed By: #### 4 537-7 ####JANETH Galo ([id number])[facility] ([facility])[address] [place] [address] ESR (Bld) [Velocity] 96 mm/h High 0-30 [facility] Comment on above: Performed By: #### 4 537-7 ####JANETH Galo (64264)[facility] ([facility])[address] [place] [address] Emergency Department Summary on 04-25-2024 Emergency Department Summary [facility] Medical Records Department [address] [place] [address] Emergency Department Summary 04/25/24 MR#: [id number] Acct: [id number] Name: DEIDRA DE LA CRUZ Rep #: [id number] : 1970 54 From: Pan Abarca MD PCP: Dr. Francisco Elmore MD Status:REG ER Location: ED HPI History of Present Illness Chief Complaint: Wound Informant: patient and EMS Narrative Narrative: 54-year-old female had plastic surgery at [facility] 2 or 3 weeks ago with a [...] states her plastic surgeon was Dr. Mac. [facility] Home Medications ???Medication ???Instructions ???Recorded ???Last Taken [...] Pressure Veda (more content not included)... Normal [facility] Eosinophil percentageOrdered By: Pan Abarca on 04-25-2024 Eosinophils/100 WBC (Bld) 2.3 % 0-5 [facility] Erythrocyte distribution wid th ratioOrdered By: Pan Abarca on 04-25-2024 Erythrocyte distribution width (RBC) [Ratio] 17.7 % High 11.6-14.6 [facility] Erythrocyte distribution wid th standard deviationOrdered By: Pan Abarca on 04-25-2024 Erythrocyte distribution width (RBC) [Entitic vol] 52.3 fL High 35.1-43.9 [facility] Estimation of creatinine isaac aranceOrdered By: Pan Abarca on 04-25-2024 Estimated Creatinine Clearance Calc 99.51 ml/min 50-250 [facility] Femur Min 2 Viewson 04-26-19 Femur Min 2 Views [facility] Services [address] [place], [place] [address] Femur Min 2 Views MR#: [id number] Acct: [id number] Name: DEIDRA DE LA CRUZ Rep #: [id number] : 1970 F 54 From: Nubia Bueno nd, MD PCP: Dr. Francisco Elmore MD Status: REG ER Study: Femur Min 2 Views Date of Exam: 04/25/24 Exam# [id number] Ordering Dr: Pan Abarca MD PROCEDURE: FEMUR [...] No obvious soft tissue lesion. Reading Location: [facility] CC: Dr. Pan Abarca MD; Dr. Francisco Elmore MD Crime Data Specialist: Signed Normal [facility] Femur Min 2 Views [facility] Services [address] [place], [place] [address] Femur Min 2 Views MR#: [id number] Acct: [id number] Name: DEIDRA DE LA CRUZ Rep #: [id number] : 1970 F 54 From: Nubia Bueno nd, MD PCP: Dr. Francisco Elmore MD Status: REG ER Study: Femur Min 2 Views Date of Exam: 04/25/24 Exam# [id number] Ordering Dr: Pan Abarca MD PROCEDURE: FEMUR [...] abscess. Surgical consultation is recommended. Reading Location: [facility] CC: Dr. Pan Abarca MD; Dr. Francisco Elmore MD Crime Data Specialist: Signed Normal [facility] GFR/1.73 sq M.predicted duarte g non-blacks MDRD (S/P/Bld) [Vol rate/Area]Ordered By: Pan Abarca on 04-25-2024 Estimated GFR (MDRD) Non-Af Amer 92 >60 [facility] Comment on above: mL/min/1.73m2 CKD-EP I Creatinine Equation (2020) Hematocrit Auto (Bld) [Volum e fraction]Ordered By: Pan Abarca on 04-25-2024 Hematocrit (Bld) [Volume fraction] 31.4 % Low 37-47 [facility] Hemoglobin measurementOrdere d By: Pan Abarca on 04-25-2024 Hemoglobin (Bld) [Mass/Vol] 9.3 g/dL Low 12.0-15.0 [facility] Immature granulocytes/100 WB C Auto (Bld)Ordered By: Pan Abarca on 04-25-2024 Immature granulocytes/100 WBC (Bld) 0.700 % 0.0-0.9 [facility] Comment on above: IG% - Immature Granu locytes (promyelocytes, myelocytes and metamyelocytes) > 1% indicates that a LEFT SHIFT is Present. Lymphocytes Auto (Unsp spec) [#/Vol]Ordered By: Pan Abarca on 04-25-2024 Lymphocytes (Bld) [#/Vol] 4.10 10*3/uL 0.83-4.51 [facility] Lymphocytes/100 WBC Auto (Un sp spec)Ordered By: Pan Abarca on 04-25-2024 Lymphocytes/100 WBC (Bld) 27.9 % 19-41 [facility] MCV (mean corpuscular volume ) determinationOrdered By: Pan Abarca on 04-25-2024 MCV (RBC) [Entitic vol] 82.0 fL 81-99 [facility] Manual differential comment David (Bld) [Interp]Ordered By: Pan Abarca on 04-25-[address] [facility] Comment on above: THROMBOCYTOSIS NOTED Mean corpuscular hemoglobin (MCH) determinationOrdered By: Pan Abarca on 04-25-2024 MCH (RBC) [Entitic mass] 24.3 pg Low 27.0-32.0 [facility] Mean corpuscular hemoglobin concentration (MCHC) determinationOrdered By: Pan Abarca on 04-25-2024 MCHC (RBC) [Mass/Vol] 29.6 g/dL Low 32-36 [facility] Mean platelet volume determi nationOrdered By: Pan Abarca on 04-25-2024 Platelet mean volume (Bld) [Entitic vol] 10.0 fL 6.2-12.0 [facility] Monocyte percentageOrdered B y: Pan Abarca on 04-25-2024 Monocytes/100 WBC (Bld) 8.9 % 0-10 [facility] Neutrophil percentageOrdered By: Pan Abarca on 04-25-2024 Neutrophils/100 WBC (Bld) 59.6 % 47-70 [facility] No Panel Informationon 04-25 [facility] Nucleated red blood cell per centageOrdered By: Pan Abarca on 04-25-2024 Nucleated RBC/100 WBC (Bld) [Ratio] 0.4 % 0-5 [facility] PT and aPTT panel Coag (PPP) on 04-25-2024 aPTT Coag (PPP) [Time] 40 s High [facility] INR Coag (PPP) [Relative time] 1.2 {INR} High 0.9 - 1.1 [facility] Interpretation and review of laboratory results Abnormal [facility] PT Coag (PPP) [Time] 13.5 s High [facility] aPTT Coag (PPP) [Time] 40 s High 26-36 [facility] Comment on above: Order Comment: The A PTT is no longer used for monitoring Unfractionated Heparin Therapy. For monitoring Heparin Therapy, use the Heparin Assay. Performed By: #### 3 4529-8 ####JANETH Galo ([id number])[facility] ([facility])[address] [place] [address] INR Coag (PPP) [Relative time] 1.2 High 0.9-1.1 [facility] Comment on above: Order Comment: The A PTT is no longer used for monitoring Unfractionated Heparin Therapy. For monitoring Heparin Therapy, use the Heparin Assay. Performed By: #### 3 4529-8 ####JANETH Galo ([id number])[facility] ([facility])[address] [place] [address] PT Coag (PPP) [Time] 13.5 s High 9.8-12.4 [facility] Comment on above: Order Comment: The A PTT is no longer used for monitoring Unfractionated Heparin Therapy. For monitoring Heparin Therapy, use the Heparin Assay. Performed By: #### 3 4529-8 ####JANETH Galo ([id number])[facility] ([facility])[address] [place] [address] Pathologist review David (Unsp spec) [Interp]Ordered By: Pan Abarca on 04-25-2024 Differential Pathologist's Review May [facility] Platelet countOrdered By: Claire Abarca on 04-25-2024 Platelets (Bld) [#/Vol] 759 10*3/uL High 150-450 [facility] Comment on above: CRITICAL VALUE PARADA D TO EMBER TOLENTINO (ER)04/25/24 3786 Uri Martínez.RESULTS READ BACK BY SAME. Potassium (Unsp spec) [Mass/ Vol]Ordered By: Pan Abarca on 04-25-2024 Potassium [Moles/Vol] 4.0 mmol/L 3.3-5.1 [facility] RBC Auto (Bld) [#/Vol]Ordere d By: Pan Abarca on 04-25-2024 RBC (Bld) [#/Vol] 3.83 10*6/uL Low 4.2-5.4 [facility] Serum creatinine measurement (mass/volume)Ordered By: Pan Abarca on 04-25-2024 Creatinine [Mass/Vol] 0.78 mg/dL 0.70-1.20 [facility] Serum glucose measurement (m ass/volume)Ordered By: Pan Abarca on 04-25-2024 Glucose [Mass/Vol] 127 mg/dL High 70-99 [facility] Serum or plasma calcium samuel urement (mass/volume)Ordered By: Pan Abarca on 04-25-2024 Calcium [Mass/Vol] 9.0 mg/dL 7.6-11.0 [facility] [facility] Serum or plasma urea nitroge n measurement (mass/volume)Ordered By: Pan Abarca on 04-25-2024 Urea nitrogen [Mass/Vol] 9 mg/dL 4-19 [facility] Sodium levelOrdered By: Adryan Abarca on 04-25-2024 Sodium [Moles/Vol] 138 mmol/L 133-145 [facility] Tibia Fibula 2 Viewson 04-25 Tibia Fibula 2 Views [facility] Imaging Services Jimmy KHAN [place], [place] [address] Tibia Fibula 2 Views MR#: [id number] Acct: [id number] Name: DEIDRA DE LA CRUZ Rep #: [id number] : 1970 F 54 From: [place], [place] PCP: Dr. Francisco Elmore MD Status: [facility] ER Study: Tibia Fibula 2 Views Date of Exam: 04/25/24 Exam# [id number] Ordering Dr: Pan Abarca MD PROCEDURE: TIBIA [...] developing infection/abscess. Surgical consultation recommended. Reading Location: [facility] CC: Dr. Pan Abarca MD; Dr. Francisco Elmore MD Crime Data Specialist: Signed Normal [facility] White blood cell (WBC) count Ordered By: Pan Abarca on 04-25-2024 WBC (Bld) [#/Vol] 14.7 10*3/uL High 4.4-11.0 [facility] XR CHEST 1 VIEWon 04-25-2024 XR CHEST 1 VIEW Normal [facility] XR Chest Single viewon 04-25 Radiology Study observation (narrative) [facility] Work Phone: XR FEMUR RIGHT 2+ VIEWSon XR FEMUR RIGHT 2+ VIEWS Normal [facility] XR Femur - right 2 Viewson 0 04-25-2024 Radiology Study observation (narrative) [facility] Work Phone: Basic metabolic 2000 panelon 04-01-2024 Anion gap [Moles/Vol] 9 mmol/L Low 10 - 2 0 mmol/L [facility] Calcium [Mass/Vol] 8.8 mg/dL 8.6 - 10. 6 mg/dL [facility] Chloride [Moles/Vol] 99 mmol/L 98 - 10 7 mmol/L [facility] CO2 [Moles/Vol] 34 mmol/L High 21 - 32 mmol/L [facility] Creatinine [Mass/Vol] 0.59 mg/dL 0.50 - 1.05 mg/dL [facility] eGFR - PINF [facility] Comment on above: Calculations of bill mated GFR are performed using the 2020 CKD-EPI Study Refit equation without the race variable for the IDMS-Traceable creatinine methods. https://jasn.asnjournals.org/content/early/ASN.956159 3930 Glucose [Mass/Vol] 137 mg/dL High 74 - 99 mg/dL [facility] Interpretation and review of laboratory results Abnormal [facility] Potassium [Moles/Vol] 4.9 mmol/L 3.5 - 5.3 mmol/L [facility] Sodium [Moles/Vol] 137 mmol/L 136 - 145 mmol/L [facility] Urea nitrogen [Mass/Vol] 14 mg/dL 6 - 23 mg/dL [facility] Anion gap [Moles/Vol] 9 mmol/L Low 10-20 [facility] Comment on above: Performed By: #### 2 4321-2 ####JANETH Galo ([id number])[facility] ([facility])[address] [place] [address] Calcium [Mass/Vol] 8.8 mg/dL Normal 8.6-10.6 [facility] Comment on above: Performed By: #### 2 4321-2 ####JANETH Galo ([id number])[facility] ([facility])[address] [place] [address] Chloride [Moles/Vol] 99 mmol/L Normal 98-107 [facility] Comment on above: Performed By: #### 2 4321-2 ####JANETH Galo ([id number])[facility] ([facility])[address] [place] [address] CO2 [Moles/Vol] 34 mmol/L High 21-32 [facility] Comment on above: Performed By: #### 2 4321-2 ####JANETH Galo ([id number])[facility] ([facility])[address] [place] [address] Creatinine [Mass/Vol] 0.59 mg/dL Normal 0.50-1.05 [facility] Comment on above: Performed By: #### 2 4321-2 ####JANETH Galo ([id number])[facility] ([facility])[address] [place] [address] GFR/1.73 sq M.predicted MDRD (S/P/Bld) [Vol rate/Area] mL/min/{1.73_m2} Normal >60 [facility] Comment on above: Result Comment: Calc ulations of estimated GFR are performed using the 2020 CKD-EPI Study Refit equation without the race variable for the IDMS-Traceable creatinine methods.https://jasn.asnjournals.org/content/early/ N.6013015039 Performed By: #### 2 4321-2 ####JANETH Galo ([id number])[facility] ([facility])[address] [place] [address] Glucose [Mass/Vol] 137 mg/dL High 74-99 [facility] Comment on above: Performed By: #### 2 4321-2 ####JANETH Galo ([id number])[facility] ([facility])[address] [place] [address] Potassium [Moles/Vol] 4.9 mmol/L Normal 3.5-5.3 [facility] Comment on above: Performed By: #### 2 4321-2 ####JANETH GRAFF L ([id number])[facility] ([facility])[address] [place] [address] Sodium [Moles/Vol] 137 mmol/L Normal 136-145 [facility] Comment on above: Performed By: #### 2 4321-2 ####JANETH Galo ([id number])[facility] ([facility])[address] [place] [address] Urea nitrogen [Mass/Vol] 14 mg/dL Normal 6-23 [facility] Comment on above: Performed By: #### 2 4321-2 ####JANETH Galo ([id number])[facility] ([facility])[address] [place] [address] CBC panel Auto (Bld)on 04-01 Erythrocyte distribution width (RBC) [Ratio] 17.4 % High 11.5 - 14.5 % [facility] Hematocrit (Bld) [Volume fraction] 26.5 % Low 36.0 - 46.0 % [facility] Hemoglobin (Bld) [Mass/Vol] 7.6 g/dL Low 12.0 - 16.0 g/dL [facility] Interpretation and review of laboratory results Abnormal [facility] MCH (RBC) [Entitic mass] 26.3 pg 26.0 - 34.0 pg [facility] MCHC (RBC) [Mass/Vol] 28.7 g/dL Low 32.0 - 36.0 g/dL [facility] MCV (RBC) [Entitic vol] 92 fL 80 - 100 fL [facility] Nucleated RBC/100 WBC (Bld) [Ratio] 0.9 % High [facility] Platelets (Bld) [#/Vol] 778 10*3/uL High [facility] RBC (Bld) [#/Vol] 2.89 10*6/uL Low [facility] WBC (Bld) [#/Vol] 12 10*3/uL High [facility] Erythrocyte distribution width (RBC) [Ratio] 17.4 % High 11.5-14.5 [facility] Comment on above: Performed By: #### 5 8410-2 ####JANETH Galo ([id number])[facility] ([facility])[address] [place] [address] Hematocrit (Bld) [Volume fraction] 26.5 % Low 36.0-46.0 [facility] Comment on above: Performed By: #### 5 8410-2 ####JANETH Galo ([id number])[facility] ([facility])[address] [place] [address] Hemoglobin (Bld) [Mass/Vol] 7.6 g/dL Low 12.0-16.0 [facility] Comment on above: Performed By: #### 5 8410-2 ####JANETH Galo ([id number])[facility] ([facility])[address] [place] [address] MCH (RBC) [Entitic mass] 26.3 pg Normal 26.0-34.0 [facility] Comment on above: Performed By: #### 5 8410-2 ####JANETH Galo ([id number])[facility] ([facility])[address] [place] [address] MCHC (RBC) [Mass/Vol] 28.7 g/dL Low 32.0-36.0 [facility] Comment on above: Performed By: #### 5 8410-2 ####JANETH Galo ([id number])[facility] ([facility])[address] [place] [address] MCV (RBC) [Entitic vol] 92 fL Normal 80-100 [facility] Comment on above: Performed By: #### 5 8410-2 ####JANETH Galo ([id number])[facility] ([facility])[address] [place] [address] Nucleated RBC/100 WBC (Bld) [Ratio] 0.9 /100 WBCs High 0.0-0.0 [facility] Comment on above: Performed By: #### 5 8410-2 ####JANETH Galo (63591)[facility] ([facility])[address] [place] [address] Platelets (Bld) [#/Vol] 778 x10*3/uL High 150-450 [facility] Comment on above: Performed By: #### 5 8410-2 ####JANETH Galo ([id number])[facility] ([facility])[address] [place] [address] RBC (Bld) [#/Vol] 2.89 x10*6/uL Low 4.00-5.20 [facility] Comment on above: Performed By: #### 5 8410-2 ####JANETH Galo (74389)[facility] ([facility])[address] [place] [address] WBC (Bld) [#/Vol] 12.0 x10*3/uL High 4.4-11.3 [facility] Comment on above: Performed By: #### 5 8410-2 ####JANETH Galo ([id number])[facility] ([facility])[address] [place] [address] Basic metabolic 2000 panelon 03-31-2024 Anion gap [Moles/Vol] 10 mmol/L 10 - 2 0 mmol/L [facility] Calcium [Mass/Vol] 8.8 mg/dL 8.6 - 10. 6 mg/dL [facility] Chloride [Moles/Vol] 100 mmol/L 98 - 10 7 mmol/L [facility] CO2 [Moles/Vol] 32 mmol/L 21 - 32 mmol/L [facility] Creatinine [Mass/Vol] 0.55 mg/dL 0.50 - 1.05 mg/dL [facility] eGFR - PINF [facility] Comment on above: Calculations of bill mated GFR are performed using the 2020 CKD-EPI Study Refit equation without the race variable for the IDMS-Traceable creatinine methods. https://jasn.asnjournals.org/content//ASN.812302 2127 Glucose [Mass/Vol] 140 mg/dL High 74 - 99 mg/dL [facility] Interpretation and review of laboratory results Abnormal [facility] Potassium [Moles/Vol] 4.9 mmol/L 3.5 - 5.3 mmol/L [facility] Sodium [Moles/Vol] 137 mmol/L 136 - 145 mmol/L [facility] Urea nitrogen [Mass/Vol] 12 mg/dL 6 - 23 mg/dL [facility] Anion gap [Moles/Vol] 10 mmol/L Normal 10-20 [facility] Comment on above: Performed By: #### 2 4321-2 ####JANETH MCDONALDTZER L ([id number])[facility] ([facility])[address] [place] [address] Calcium [Mass/Vol] 8.8 mg/dL Normal 8.6-10.6 [facility] Comment on above: Performed By: #### 2 4321-2 ####JANETH CONNORMOTZER L (33577)[facility] ([facility])[address] [place] [address] Chloride [Moles/Vol] 100 mmol/L Normal 98-107 [facility] Comment on above: Performed By: #### 2 4321-2 ####JANETH SCHMOTZER L ([id number])[facility] ([facility])[address] [place] [address] CO2 [Moles/Vol] 32 mmol/L Normal 21-32 [facility] Comment on above: Performed By: #### 2 4321-2 ####JANETH CONNORMOTZER L ([id number])[facility] ([facility])[address] [place] [address] Creatinine [Mass/Vol] 0.55 mg/dL Normal 0.50-1.05 [facility] Comment on above: Performed By: #### 2 4321-2 ####JANETH Galo ([id number])[facility] ([facility])[address] [place] [address] GFR/1.73 sq M.predicted MDRD (S/P/Bld) [Vol rate/Area] mL/min/{1.73_m2} Normal >60 [facility] Comment on above: Result Comment: Calc ulations of estimated GFR are performed using the 2020 CKD-EPI Study Refit equation without the race variable for the IDMS-Traceable creatinine methods.https://jasn.asnjournals.org/content/early// N.2202592764 Performed By: #### 2 4321-2 ####JANETH Galo ([id number])[facility] ([facility])[address] [place] [address] Glucose [Mass/Vol] 140 mg/dL High 74-99 [facility] Comment on above: Performed By: #### 2 4321-2 ####JANETH Galo (49830)[facility] ([facility])[address] [place] [address] Potassium [Moles/Vol] 4.9 mmol/L Normal 3.5-5.3 [facility] Comment on above: Performed By: #### 2 4321-2 ####JANETH Galo (54334)[facility] ([facility])[address] [place] [address] Sodium [Moles/Vol] 137 mmol/L Normal 136-145 [facility] Comment on above: Performed By: #### 2 4321-2 ####JANETH Galo ([id number])[facility] ([facility])[address] [place] [address] Urea nitrogen [Mass/Vol] 12 mg/dL Normal 6-23 [facility] Comment on above: Performed By: #### 2 4321-2 ####JANETH Galo ([id number])[facility] ([facility])[address] [place] [address] C reactive proteinon 025 CRP [Mass/Vol] 13.34 mg/dL High <1.00 [facility] Comment on above: Performed By: #### 1 988-5 ####JANETH Galo ([id number])[facility] ([facility])[address] [place] [address] C-reactive proteinon 025 CRP [Mass/Vol] 13.34 mg/dL High NINF - 1.00 mg/dL [facility] CBC panel Auto (Bld)on 03-31 Erythrocyte distribution width (RBC) [Ratio] 17.3 % High 11.5 - 14.5 % [facility] Hematocrit (Bld) [Volume fraction] 25 % Low 36.0 - 46.0 % [facility] Hemoglobin (Bld) [Mass/Vol] 7.4 g/dL Low 12.0 - 16.0 g/dL [facility] Interpretation and review of laboratory results Abnormal [facility] MCH (RBC) [Entitic mass] 26.4 pg 26.0 - 34.0 pg [facility] MCHC (RBC) [Mass/Vol] 29.6 g/dL Low 32.0 - 36.0 g/dL [facility] MCV (RBC) [Entitic vol] 89 fL 80 - 100 fL [facility] Nucleated RBC/100 WBC (Bld) [Ratio] 1.3 % High [facility] Platelets (Bld) [#/Vol] 627 10*3/uL [facility] RBC (Bld) [#/Vol] 2.8 10*6/uL [facility] WBC (Bld) [#/Vol] 13.6 10*3/uL [facility] Erythrocyte distribution width (RBC) [Ratio] 17.3 % High 11.5-14.5 [facility] Comment on above: Performed By: #### 5 8410-2 ####JANETH Galo ([id number])[facility] ([facility])[address] [place] [address] Hematocrit (Bld) [Volume fraction] 25.0 % Low 36.0-46.0 [facility] Comment on above: Performed By: #### 5 8410-2 ####JANETH Galo (65955)[facility] ([facility])[id number] [place] [address] Hemoglobin (Bld) [Mass/Vol] 7.4 g/dL Low 12.0-16.0 [facility] Comment on above: Performed By: #### 5 8410-2 ####JANETH Galo ([id number])[facility] ([facility])[address] [place] [address] MCH (RBC) [Entitic mass] 26.4 pg Normal 26.0-34.0 [facility] Comment on above: Performed By: #### 5 8410-2 ####JANETH Galo ([id number])[facility] ([facility])[address] [place] [address] MCHC (RBC) [Mass/Vol] 29.6 g/dL Low 32.0-36.0 [facility] Comment on above: Performed By: #### 5 8410-2 ####JANETH Galo (94766)[facility] ([facility])[address] [place] [address] MCV (RBC) [Entitic vol] 89 fL Normal 80-100 [facility] Comment on above: Performed By: #### 5 8410-2 ####JANETH Galo (79626)[facility] ([facility])[address] [place] [address] Nucleated RBC/100 WBC (Bld) [Ratio] 1.3 /100 WBCs High 0.0-0.0 [facility] Comment on above: Performed By: #### 5 8410-2 ####JANETH Galo ([id number])[facility] ([facility])[address] [place] [address] Platelets (Bld) [#/Vol] 627 x10*3/uL High 150-450 [facility] Comment on above: Performed By: #### 5 8410-2 ####JANETH Galo ([id number])[facility] ([facility])[address] [place] [address] RBC (Bld) [#/Vol] 2.80 x10*6/uL Low 4.00-5.20 [facility] Comment on above: Performed By: #### 5 8410-2 ####JANETH Galo ([id number])[facility] ([facility])[address] [place] [address] WBC (Bld) [#/Vol] 13.6 x10*3/uL High 4.4-11.3 [facility] Comment on above: Performed By: #### 5 8410-2 ####JANETH Galo ([id number])[facility] ([facility])[address] [place] [address] CRP [Mass/Vol]on 03-31-2024 Interpretation and review of laboratory results Abnormal [facility] ESR Westergren method (Bld) [Velocity]on 03-31-2024 ESR (Bld) [Velocity] 32 mm/h High 0 - 30 mm/h [facility] Interpretation and review of laboratory results Abnormal [facility] ESR (Bld) [Velocity] 32 mm/h High 0-30 [facility] Comment on above: Performed By: #### 4 537-7 ####JANETH Galo ([id number])[facility] ([facility])[address] [place] [address] Basic metabolic 2000 panelon 03-30-2024 Anion gap [Moles/Vol] 10 mmol/L 10 - 2 0 mmol/L [facility] Calcium [Mass/Vol] 9 mg/dL 8.6 - 10. 6 mg/dL [facility] Chloride [Moles/Vol] 98 mmol/L 98 - 10 7 mmol/L [facility] CO2 [Moles/Vol] 32 mmol/L 21 - 32 mmol/L [facility] Creatinine [Mass/Vol] 0.51 mg/dL 0.50 - 1.05 mg/dL [facility] eGFR - PINF [facility] Comment on above: Calculations of bill mated GFR are performed using the 2020 CKD-EPI Study Refit equation without the race variable for the IDMS-Traceable creatinine methods. https://jasn.asnjournals.org/content//ASN.894352 7746 Glucose [Mass/Vol] 129 mg/dL High 74 - 99 mg/dL [facility] Interpretation and review of laboratory results Abnormal [facility] Potassium [Moles/Vol] 4.4 mmol/L 3.5 - 5.3 mmol/L [facility] Sodium [Moles/Vol] 136 mmol/L 136 - 145 mmol/L [facility] Urea nitrogen [Mass/Vol] 12 mg/dL 6 - 23 mg/dL [facility] Anion gap [Moles/Vol] 10 mmol/L Normal 10-20 [facility] Comment on above: Performed By: #### 2 4321-2 ####JANETH Galo ([id number])[facility] ([facility])[address] [place] [address] Calcium [Mass/Vol] 9.0 mg/dL Normal 8.6-10.6 [facility] Comment on above: Performed By: #### 2 4321-2 ####JANETH GRAFF L ([id number])[facility] ([facility])[address] [place] [address] Chloride [Moles/Vol] 98 mmol/L Normal 98-107 [facility] Comment on above: Performed By: #### 2 4321-2 ####JANETH GRAFF L (09258)[facility] ([facility])[address] [place] [address] CO2 [Moles/Vol] 32 mmol/L Normal 21-32 [facility] Comment on above: Performed By: #### 2 4321-2 ####JANETH Galo ([id number])[facility] ([facility])[address] [place] [address] Creatinine [Mass/Vol] 0.51 mg/dL Normal 0.50-1.05 [facility] Comment on above: Performed By: #### 2 4321-2 ####JANETH Galo (47050)[facility] ([facility])[address] [place] [address] GFR/1.73 sq M.predicted MDRD (S/P/Bld) [Vol rate/Area] mL/min/{1.73_m2} Normal >60 [facility] Comment on above: Result Comment: Calc ulations of estimated GFR are performed using the 2020 CKD-EPI Study Refit equation without the race variable for the IDMS-Traceable creatinine methods.https://jasn.asnjournals.org/content/early// N.7868177615 Performed By: #### 2 432-2 ####JANETH Galo ([id number])[facility] ([facility])[address] [place] [address] Glucose [Mass/Vol] 129 mg/dL High 74-99 [facility] Comment on above: Performed By: #### 2 4321-2 ####JANETH Galo ([id number])[facility] ([facility])[address] [place] [address] Potassium [Moles/Vol] 4.4 mmol/L Normal 3.5-5.3 [facility] Comment on above: Performed By: #### 2 4321-2 ####JANETH Galo (65206)[facility] ([facility])[address] [place] [address] Sodium [Moles/Vol] 136 mmol/L Normal 136-145 [facility] Comment on above: Performed By: #### 2 4321-2 ####JANETH Galo ([id number])[facility] ([facility])[address] [place] [address] Urea nitrogen [Mass/Vol] 12 mg/dL Normal 6-23 [facility] Comment on above: Performed By: #### 2 4321-2 ####JANETH Galo ([id number])[facility] ([facility])[address] [place] [address] CBC panel Auto (Bld)on 03-30 Erythrocyte distribution width (RBC) [Ratio] 17.2 % High 11.5 - 14.5 % [facility] Hematocrit (Bld) [Volume fraction] 27.1 % Low 36.0 - 46.0 % [facility] Hemoglobin (Bld) [Mass/Vol] 7.9 g/dL Low 12.0 - 16.0 g/dL [facility] Interpretation and review of laboratory results Abnormal [facility] MCH (RBC) [Entitic mass] 26.4 pg 26.0 - 34.0 pg [facility] MCHC (RBC) [Mass/Vol] 29.2 g/dL Low 32.0 - 36.0 g/dL [facility] MCV (RBC) [Entitic vol] 91 fL 80 - 100 fL [facility] Nucleated RBC/100 WBC (Bld) [Ratio] 2.5 % High [facility] Platelets (Bld) [#/Vol] 566 10*3/uL High [facility] RBC (Bld) [#/Vol] 2.99 10*6/uL Low [facility] WBC (Bld) [#/Vol] 15.7 10*3/uL High [facility] Erythrocyte distribution width (RBC) [Ratio] 17.2 % High 11.5-14.5 [facility] Comment on above: Performed By: #### 5 8410-2 ####JANETH Galo ([id number])[facility] ([facility])[address] [place] [address] Hematocrit (Bld) [Volume fraction] 27.1 % Low 36.0-46.0 [facility] Comment on above: Performed By: #### 5 8410-2 ####JANETH Galo ([id number])[facility] ([facility])[id number] [place] [address] Hemoglobin (Bld) [Mass/Vol] 7.9 g/dL Low 12.0-16.0 [facility] Comment on above: Performed By: #### 5 8410-2 ####JANETH Galo ([id number])[facility] ([facility])[address] [place] [address] MCH (RBC) [Entitic mass] 26.4 pg Normal 26.0-34.0 [facility] Comment on above: Performed By: #### 5 8410-2 ####JANETH Galo ([id number])[facility] ([facility])[address] [place] [address] MCHC (RBC) [Mass/Vol] 29.2 g/dL Low 32.0-36.0 [facility] Comment on above: Performed By: #### 5 8410-2 ####JANETH Galo ([id number])[facility] ([facility])[address] [place] [address] MCV (RBC) [Entitic vol] 91 fL Normal 80-100 [facility] Comment on above: Performed By: #### 5 8410-2 ####JANETH Galo ([id number])[facility] ([facility])[address] [place] [address] Nucleated RBC/100 WBC (Bld) [Ratio] 2.5 /100 WBCs High 0.0-0.0 [facility] [facility] Comment on above: Performed By: #### 5 8410-2 ####JANETH Galo ([id number])[facility] ([facility])[address] [place] [address] Platelets (Bld) [#/Vol] 566 x10*3/uL High 150-450 [facility] Comment on above: Performed By: #### 5 8410-2 ####JANETH RANGELER L ([id number])[facility] ([facility])[address] [place] [address] RBC (Bld) [#/Vol] 2.99 x10*6/uL Low 4.00-5.20 [facility] Comment on above: Performed By: #### 5 8410-2 ####JANETH SCHMOTZER L ([id number])[facility] ([facility])[address] [place] [address] WBC (Bld) [#/Vol] 15.7 x10*3/uL High 4.4-11.3 [facility] Comment on above: Performed By: #### 5 8410-2 ####JANETH CONNORMOTZER L ([id number])[facility] ([facility])[address] [place] [address] Bacteria identified Cx Nom ( Unsp spec)Ordered By: Corrina Galo on 03-29-2024 Interpretation and review of laboratory results Abnormal [facility] Microscopic observation Gram stain Nom (Unsp spec) No polymorphonuclear leukocytes seen [facility] Microscopic observation Gram stain Nom (Unsp spec) No organisms seen [facility] Basic metabolic 2000 panelon 03-29-2024 Anion gap [Moles/Vol] 11 mmol/L 10 - 2 0 mmol/L [facility] Calcium [Mass/Vol] 8.7 mg/dL 8.6 - 10. 6 mg/dL [facility] Chloride [Moles/Vol] 102 mmol/L 98 - 10 7 mmol/L [facility] CO2 [Moles/Vol] 30 mmol/L 21 - 32 mmol/L [facility] Creatinine [Mass/Vol] 0.58 mg/dL 0.50 - 1.05 mg/dL [facility] eGFR - PINF [facility] Comment on above: Calculations of bill mated GFR are performed using the 2020 CKD-EPI Study Refit equation without the race variable for the IDMS-Traceable creatinine methods. https://jasn.asnjournals.org/content//ASN.086766 8493 Glucose [Mass/Vol] 103 mg/dL High 74 - 99 mg/dL [facility] Interpretation and review of laboratory results Abnormal [facility] Potassium [Moles/Vol] 5.3 mmol/L 3.5 - 5.3 mmol/L [facility] Sodium [Moles/Vol] 138 mmol/L 136 - 145 mmol/L [facility] Urea nitrogen [Mass/Vol] 13 mg/dL 6 - 23 mg/dL [facility] Anion gap [Moles/Vol] 11 mmol/L Normal 10-20 [facility] Comment on above: Performed By: #### 2 4321-2 ####JANETH GRAFF L ([id number])[facility] ([facility])[address] [place] [address] Calcium [Mass/Vol] 8.7 mg/dL Normal 8.6-10.6 [facility] Comment on above: Performed By: #### 2 4321-2 ####JANETH GRAFF L ([id number])[facility] ([facility])[address] [place] [address] Chloride [Moles/Vol] 102 mmol/L Normal 98-107 [facility] Comment on above: Performed By: #### 2 4321-2 ####JANETH CONNORMOTZER L ([id number])[facility] ([facility])[address] [place] [address] CO2 [Moles/Vol] 30 mmol/L Normal 21-32 [facility] Comment on above: Performed By: #### 2 4321-2 ####JANETH GRAFF L ([id number])[facility] ([facility])[address] [place] [address] Creatinine [Mass/Vol] 0.58 mg/dL Normal 0.50-1.05 [facility] Comment on above: Performed By: #### 2 4321-2 ####JANETH GRAFF L ([id number])[facility] ([facility])[address] [place] [address] GFR/1.73 sq M.predicted MDRD (S/P/Bld) [Vol rate/Area] mL/min/{1.73_m2} Normal >60 [facility] Comment on above: Result Comment: Calc ulations of estimated GFR are performed using the 2020 CKD-EPI Study Refit equation without the race variable for the IDMS-Traceable creatinine methods.https://jasn.asnjournals.org/content// N.9659567370 Performed By: #### 2 4321-2 ####JANETH Galo ([id number])[facility] ([facility])[address] [place] [address] Glucose [Mass/Vol] 103 mg/dL High 74-99 [facility] Comment on above: Performed By: #### 2 4321-2 ####JANETH GRAFF L ([id number])[facility] ([facility])[address] [place] [address] Potassium [Moles/Vol] 5.3 mmol/L Normal 3.5-5.3 [facility] Comment on above: Performed By: #### 2 4321-2 ####JANETH GRAFF L ([id number])[facility] ([facility])[address] [place] [address] Sodium [Moles/Vol] 138 mmol/L Normal 136-145 [facility] Comment on above: Performed By: #### 2 4321-2 ####JANETH CONNORMOTZER L ([id number])[facility] ([facility])[address] [place] [address] Urea nitrogen [Mass/Vol] 13 mg/dL Normal 6-23 [facility] Comment on above: Performed By: #### 2 4321-2 ####JANETH CONNORMOTZER L ([id number])[facility] ([facility])[address] [place] [address] Anion gap [Moles/Vol] 11 mmol/L 10 - 2 0 mmol/L [facility] Calcium [Mass/Vol] 8.8 mg/dL 8.6 - 10. 6 mg/dL [facility] Chloride [Moles/Vol] 102 mmol/L 98 - 10 7 mmol/L [facility] CO2 [Moles/Vol] 31 mmol/L 21 - 32 mmol/L [facility] Creatinine [Mass/Vol] 0.61 mg/dL 0.50 - 1.05 mg/dL [facility] eGFR - PINF [facility] Comment on above: Calculations of bill mated GFR are performed using the 2020 CKD-EPI Study Refit equation without the race variable for the IDMS-Traceable creatinine methods. https://jasn.asnjournals.org/content//ASN.962029 4271 Glucose [Mass/Vol] 118 mg/dL High 74 - 99 mg/dL [facility] Interpretation and review of laboratory results Abnormal [facility] Potassium [Moles/Vol] 5.5 mmol/L High 3.5 - 5.3 mmol/L [facility] Sodium [Moles/Vol] 138 mmol/L 136 - 145 mmol/L [facility] Urea nitrogen [Mass/Vol] 14 mg/dL 6 - 23 mg/dL [facility] Anion gap [Moles/Vol] 11 mmol/L Normal 10-20 [facility] Comment on above: Performed By: #### 2 4321-2 ####JANETH Galo ([id number])[facility] ([facility])[address] [place] [address] Calcium [Mass/Vol] 8.8 mg/dL Normal 8.6-10.6 [facility] Comment on above: Performed By: #### 2 4321-2 ####JANETH GRAFF L ([id number])[facility] ([facility])[address] [place] [address] Chloride [Moles/Vol] 102 mmol/L Normal 98-107 [facility] Comment on above: Performed By: #### 2 4321-2 ####JANETH GRAFF L ([id number])[facility] ([facility])[address] [place] [address] CO2 [Moles/Vol] 31 mmol/L Normal 21-32 [facility] Comment on above: Performed By: #### 2 4321-2 ####JANETH Galo ([id number])[facility] ([facility])[address] [place] [address] Creatinine [Mass/Vol] 0.61 mg/dL Normal 0.50-1.05 [facility] Comment on above: Performed By: #### 2 4321-2 ####JANETH Galo ([id number])[facility] ([facility])[address] [place] [address] GFR/1.73 sq M.predicted MDRD (S/P/Bld) [Vol rate/Area] mL/min/{1.73_m2} Normal >60 [facility] Comment on above: Result Comment: Calc ulations of estimated GFR are performed using the 2020 CKD-EPI Study Refit equation without the race variable for the IDMS-Traceable creatinine methods.https://jasn.asnjournals.org/content/early// N.8560235085 Performed By: #### 2 4321-2 ####JANETH Galo ([id number])[facility] ([facility])[address] [place] [address] Glucose [Mass/Vol] 118 mg/dL High 74-99 [facility] Comment on above: Performed By: #### 2 4321-2 ####JANETH Galo ([id number])[facility] ([facility])[address] [place] [address] Potassium [Moles/Vol] 5.5 mmol/L High 3.5-5.3 [facility] Comment on above: Performed By: #### 2 4321-2 ####JANETH Galo ([id number])[facility] ([facility])[address] [place] [address] Sodium [Moles/Vol] 138 mmol/L Normal 136-145 [facility] Comment on above: Performed By: #### 2 4321-2 ####JANETH Galo ([id number])[facility] ([facility])[address] [place] [address] Urea nitrogen [Mass/Vol] 14 mg/dL Normal - [facility] Comment on above: Performed By: #### 2 4321-2 ####JANETH Galo ([id number])[facility] ([facility])[address] [place] [address] C reactive proteinon 025 CRP [Mass/Vol] 17.66 mg/dL High <1.00 [facility] Comment on above: Performed By: #### 1 988-5 ####JANETH Galo ([id number])[facility] ([facility])[address] [place] [address] C-reactive proteinon 025 CRP [Mass/Vol] 17.66 mg/dL High NINF - 1.00 mg/dL [facility] CBC panel Auto (Bld)on 03-29 Erythrocyte distribution width (RBC) [Ratio] 17.3 % High 11.5 - 14.5 % [facility] Hematocrit (Bld) [Volume fraction] 27.1 % Low 36.0 - 46.0 % [facility] Hemoglobin (Bld) [Mass/Vol] 8.1 g/dL Low 12.0 - 16.0 g/dL [facility] Interpretation and review of laboratory results Abnormal [facility] MCH (RBC) [Entitic mass] 26.8 pg 26.0 - 34.0 pg [facility] MCHC (RBC) [Mass/Vol] 29.9 g/dL Low 32.0 - 36.0 g/dL [facility] MCV (RBC) [Entitic vol] 90 fL 80 - 100 fL [facility] Nucleated RBC/100 WBC (Bld) [Ratio] 5.4 % High [facility] Platelets (Bld) [#/Vol] 461 10*3/uL High [facility] RBC (Bld) [#/Vol] 3.02 10*6/uL Low [facility] WBC (Bld) [#/Vol] 16.9 10*3/uL High [facility] Erythrocyte distribution width (RBC) [Ratio] 17.3 % High 11.5-14.5 [facility] Comment on above: Performed By: #### 5 8410-2 ####JANETH Galo ([id number])[facility] ([facility])[address] [place] [address] Hematocrit (Bld) [Volume fraction] 27.1 % Low 36.0-46.0 [facility] Comment on above: Performed By: #### 5 8410-2 ####JANETH Galo (21414)[facility] ([facility])[address] [place] [address] Hemoglobin (Bld) [Mass/Vol] 8.1 g/dL Low 12.0-16.0 [facility] Comment on above: Performed By: #### 5 8410-2 ####JANETH Galo ([id number])[facility] ([facility])[address] [place] [address] MCH (RBC) [Entitic mass] 26.8 pg Normal 26.0-34.0 [facility] Comment on above: Performed By: #### 5 8410-2 ####JANETH Galo ([id number])[facility] ([facility])[address] [place] [address] MCHC (RBC) [Mass/Vol] 29.9 g/dL Low 32.0-36.0 [facility] Comment on above: Performed By: #### 5 8410-2 ####JANETH Galo ([id number])[facility] ([facility])[address] [place] [address] MCV (RBC) [Entitic vol] 90 fL Normal 80-100 [facility] Comment on above: Performed By: #### 5 8410-2 ####JANETH Galo ([id number])[facility] ([facility])[id number] [place] [address] Nucleated RBC/100 WBC (Bld) [Ratio] 5.4 /100 WBCs High 0.0-0.0 [facility] Comment on above: Performed By: #### 5 8410-2 ####JANETH Galo ([id number])[facility] ([facility])[address] [place] [address] Platelets (Bld) [#/Vol] 461 x10*3/uL High 150-450 [facility] Comment on above: Performed By: #### 5 8410-2 ####JANETH Galo ([id number])[facility] ([facility])[address] [place] [address] RBC (Bld) [#/Vol] 3.02 x10*6/uL Low 4.00-5.20 [facility] Comment on above: Performed By: #### 5 8410-2 ####JANETH Galo ([id number])[facility] ([facility])[address] [place] [address] WBC (Bld) [#/Vol] 16.9 x10*3/uL High 4.4-11.3 [facility] Comment on above: Performed By: #### 5 8410-2 ####JANETH Galo ([id number])[facility] ([facility])[address] [place] [address] CRP [Mass/Vol]on 03-29-2024 Interpretation and review of laboratory results Abnormal [facility] ESR Westergren method (Bld) [Velocity]on 03-29-2024 ESR (Bld) [Velocity] 49 mm/h High 0 - 30 mm/h [facility] Interpretation and review of laboratory results Abnormal [facility] ESR (Bld) [Velocity] 49 mm/h High 0-30 [facility] Comment on above: Performed By: #### 4 537-7 ####JANETH Galo ([id number])[facility] ([facility])[address] [place] [id number] No Panel Informationon 03-29 Interval explantatio n of hardware in the tibia with placement of antibiotic beads. Soft tissue edema about calf. MACRO: None Signed by: Luis F Ochoa 03/29/2024 4:40 PM Dictation workstation: [id number] MMODAL Interpreted By: Luis F Mckinney, STUDY: XR KNEE RIGHT 1-2 VIEWS; XR TIBIA FIBULA RIGHT 2 VIEWS; ; 03/29/2024 3:55 pm; 03/29/2024 3:57 pm INDICATION: Signs/Symptoms:s/p R knee fusion. COMPARISON: 08/25/2023. ACCESSION NUMBER(S): [id number]; [id number] ORDERING CLINICIAN: AMIE CHA FINDINGS: Right knee, [...] R knee fusion. COMPARISON: 08/25/2023. ACCESSION NUMBER(S): [id number]; [id number] ORDERING CLINICIAN: AMIE CHA FINDINGS: Right knee, [...] F Ochoa 03/29/2024 4:40 PM Dictation workstation: [id number] [facility] Work Phone: Radiology Study observation (narrative) [facility] Work Phone: No Panel InformationOrdered By: Luis F Ochoa on 03-29-2024 [facility] Work Phone: Tissue/Wound Culture/SmearOr dered By: Corrina Galo on 03-29-2024 Bacteria identified Cx Nom (Unsp spec) (1+) Rare Escherichia coli Abnormal [facility] XR KNEE RIGHT 1-2 VIEWSon XR KNEE RIGHT 1-2 VIEWS Normal [facility] Comment on above: Order Comment: Lorena valdes obtain AP and lateral views XR TIBIA FIBULA RIGHT 2 VIEW Son 03-29-2024 XR TIBIA FIBULA RIGHT 2 VIEWS Normal [facility] C reactive proteinon 025 CRP [Mass/Vol] 21.25 mg/dL High <1.00 [facility] Comment on above: Performed By: #### 1 988-5 ####JANETH Galo ([id number])[facility] ([facility])[address] [place] [address] C-reactive proteinon 025 CRP [Mass/Vol] 21.25 mg/dL High NINF - 1.00 mg/dL [facility] CBC panel Auto (Bld)on 03-28 Erythrocyte distribution width (RBC) [Ratio] 17.7 % High 11.5 - 14.5 % [facility] Hematocrit (Bld) [Volume fraction] 27.9 % Low 36.0 - 46.0 % [facility] Hemoglobin (Bld) [Mass/Vol] 8.1 g/dL Low 12.0 - 16.0 g/dL [facility] Interpretation and review of laboratory results Abnormal [facility] MCH (RBC) [Entitic mass] 26.2 pg 26.0 - 34.0 pg [facility] MCHC (RBC) [Mass/Vol] 29 g/dL Low 32.0 - 36.0 g/dL [facility] MCV (RBC) [Entitic vol] 90 fL 80 - 100 fL [facility] Nucleated RBC/100 WBC (Bld) [Ratio] 7.5 % High [facility] Platelets (Bld) [#/Vol] 370 10*3/uL [facility] RBC (Bld) [#/Vol] 3.09 10*6/uL Low [facility] WBC (Bld) [#/Vol] 16.5 10*3/uL High [facility] Erythrocyte distribution width (RBC) [Ratio] 17.7 % High 11.5-14.5 [facility] Comment on above: Performed By: #### 5 8410-2 ####JANETH Galo ([id number])[facility] ([facility])[address] [place] [address] Hematocrit (Bld) [Volume fraction] 27.9 % Low 36.0-46.0 [facility] Comment on above: Performed By: #### 5 8410-2 ####JANETH Galo ([id number])[facility] ([facility])[address] [place] [address] Hemoglobin (Bld) [Mass/Vol] 8.1 g/dL Low 12.0-16.0 [facility] Comment on above: Performed By: #### 5 8410-2 ####JANETH Galo ([id number])[facility] ([facility])[address] [place] [address] MCH (RBC) [Entitic mass] 26.2 pg Normal 26.0-34.0 [facility] Comment on above: Performed By: #### 5 8410-2 ####JANETH Galo ([id number])[facility] ([facility])[address] [place] [address] MCHC (RBC) [Mass/Vol] 29.0 g/dL Low 32.0-36.0 [facility] Comment on above: Performed By: #### 5 8410-2 ####JANETH Galo ([id number])[facility] ([facility])[address] [place] [address] MCV (RBC) [Entitic vol] 90 fL Normal 80-100 [facility] Comment on above: Performed By: #### 5 8410-2 ####JANETH Galo ([id number])[facility] ([facility])[address] [place] [address] Nucleated RBC/100 WBC (Bld) [Ratio] 7.5 /100 WBCs High 0.0-0.0 [facility] Comment on above: Performed By: #### 5 8410-2 ####JANETH Galo ([id number])[facility] ([facility])[address] [place] [address] Platelets (Bld) [#/Vol] 370 x10*3/uL Normal 150-450 [facility] Comment on above: Performed By: #### 5 8410-2 ####JANETH Galo ([id number])[facility] ([facility])[address] [place] [address] RBC (Bld) [#/Vol] 3.09 x10*6/uL Low 4.00-5.20 [facility] Comment on above: Performed By: #### 5 8410-2 ####JANETH Galo ([id number])[facility] ([facility])[address] [place] [address] WBC (Bld) [#/Vol] 16.5 x10*3/uL High 4.4-11.3 [facility] Comment on above: Performed By: #### 5 8410-2 ####JANETH Galo ([id number])[facility] ([facility])[address] [place] [address] Comprehensive metabolic 2000 panelon 03-28-2024 Albumin BCP dye [Mass/Vol] 3.6 g/dL 3.4 - 5.0 g/dL [facility] ALP [Catalytic activity/Vol] 129 U/L High 33 - 110 U/L [facility] ALT With P-5'-P [Catalytic activity/Vol] 19 U/L 7 - 45 U/L [facility] Comment on above: Patients treated wit h Sulfasalazine may generate falsely decreased results for ALT. Anion gap [Moles/Vol] 12 mmol/L 10 - 2 0 mmol/L [facility] AST With P-5'-P [Catalytic activity/Vol] 18 U/L 9 - 39 U/L [facility] Bilirubin [Mass/Vol] 0.3 mg/dL 0.0 - 1 .2 mg/dL [facility] Calcium [Mass/Vol] 8.9 mg/dL 8.6 - 10. 6 mg/dL [facility] Chloride [Moles/Vol] 104 mmol/L 98 - 10 7 mmol/L [facility] CO2 [Moles/Vol] 26 mmol/L 21 - 32 mmol/L [facility] Creatinine [Mass/Vol] 0.64 mg/dL 0.50 - 1.05 mg/dL [facility] eGFR - PINF [facility] Comment on above: Calculations of bill mated GFR are performed using the 2020 CKD-EPI Study Refit equation without the race variable for the IDMS-Traceable creatinine methods. https://jasn.asnjournals.org/content//ASN.463647 6265 Glucose [Mass/Vol] 101 mg/dL High 74 - 99 mg/dL [facility] Potassium [Moles/Vol] 4.7 mmol/L 3.5 - 5.3 mmol/L [facility] Protein [Mass/Vol] 6.9 g/dL 6.4 - 8.2 g/dL [facility] Sodium [Moles/Vol] 137 mmol/L 136 - 145 mmol/L [facility] Urea nitrogen [Mass/Vol] 15 mg/dL 6 - 23 mg/dL [facility] Albumin BCP dye [Mass/Vol] 3.6 g/dL Normal 3.4-5.0 [facility] Comment on above: Performed By: #### 2 4323-8 ####JANETH Galo ([id number])[facility] ([facility])[address] [place] [address] ALP [Catalytic activity/Vol] 129 U/L High 33-110 [facility] Comment on above: Performed By: #### 2 4323-8 ####JANETH Galo ([id number])[facility] ([facility])[address] [place] [address] ALT With P-5'-P [Catalytic activity/Vol] 19 U/L Normal 7-45 [facility] Comment on above: Result Comment: Tomasa ents treated with Sulfasalazine may generate falsely decreased results for ALT. Performed By: #### 2 4323-8 ####JANETH Galo ([id number])[facility] ([facility])[address] [place] [address] Anion gap [Moles/Vol] 12 mmol/L Normal 10-20 [facility] Comment on above: Performed By: #### 2 4323-8 ####JANETH Galo ([id number])[facility] ([facility])[address] [place] [address] AST With P-5'-P [Catalytic activity/Vol] 18 U/L Normal 9-39 [facility] Comment on above: Performed By: #### 2 4323-8 ####JANETH Galo ([id number])[facility] ([facility])[address] [place] [address] Bilirubin [Mass/Vol] 0.3 mg/dL Normal 0.0-1.2 [facility] Comment on above: Performed By: #### 2 4323-8 ####JANETH Galo ([id number])[facility] ([facility])[address] [place] [address] Calcium [Mass/Vol] 8.9 mg/dL Normal 8.6-10.6 [facility] Comment on above: Performed By: #### 2 4323-8 ####JAENTH Galo ([id number])[facility] ([facility])[address] [place] [address] Chloride [Moles/Vol] 104 mmol/L Normal 98-107 [facility] Comment on above: Performed By: #### 2 4323-8 ####JANETH Galo ([id number])[facility] ([facility])[address] [place] [address] CO2 [Moles/Vol] 26 mmol/L Normal 21-32 [facility] Comment on above: Performed By: #### 2 4323-8 ####JANETH Galo ([id number])[facility] ([facility])[address] [place] [address] Creatinine [Mass/Vol] 0.64 mg/dL Normal 0.50-1.05 [facility] Comment on above: Performed By: #### 2 4323-8 ####JANETH Galo ([id number])[facility] ([facility])[address] [place] [address] GFR/1.73 sq M.predicted MDRD (S/P/Bld) [Vol rate/Area] mL/min/{1.73_m2} Normal >60 [facility] Comment on above: Result Comment: Calc ulations of estimated GFR are performed using the 2020 CKD-EPI Study Refit equation without the race variable for the IDMS-Traceable creatinine methods.https://jasn.asnjournals.org/content/early/ N.6824458340 Performed By: #### 2 4323-8 ####JANETH Galo ([id number])[facility] ([facility])[address] [place] [address] Glucose [Mass/Vol] 101 mg/dL High 74-99 [facility] Comment on above: Performed By: #### 2 4323-8 ####JANETH Galo ([id number])[facility] ([facility])[address] [place] [address] Potassium [Moles/Vol] 4.7 mmol/L Normal 3.5-5.3 [facility] Comment on above: Performed By: #### 2 4323-8 ####JANETH Galo ([id number])[facility] ([facility])[address] [place] [address] Protein [Mass/Vol] 6.9 g/dL Normal 6.4-8.2 [facility] Comment on above: Performed By: #### 2 4323-8 ####JANETH Galo ([id number])[facility] ([facility])[id number] [place] [address] Sodium [Moles/Vol] 137 mmol/L Normal 136-145 [facility] Comment on above: Performed By: #### 2 4323-8 ####JANETH Galo ([id number])[facility] ([facility])[address] [place] [address] Urea nitrogen [Mass/Vol] 15 mg/dL Normal 6-23 [facility] Comment on above: Performed By: #### 2 4323-8 ####JANETH Galo ([id number])[facility] ([facility])[address] [place] [address] ESR Westergren method (Bld) [Velocity]on 03-28-2024 ESR (Bld) [Velocity] 41 mm/h High 0 - 30 mm/h [facility] Interpretation and review of laboratory results Abnormal [facility] ESR (Bld) [Velocity] 41 mm/h High 0-30 [facility] Comment on above: Performed By: #### 4 537-7 ####JANETH Galo ([id number])[facility] ([facility])[address] [place], [place] [id number] No Panel Informationon 03-28 Blood Expiration Date 04/22/2024 11:59:00 PM EST [facility] Dispense Status RE [facility] Dispense Status TR [facility] PRODUCT BLOOD TYPE 6200 [facility] PRODUCT CODE [id number] [facility] Unit ABO A [facility] Unit RH Positive [facility] UNIT VOLUME 350 [facility] XM INTEP COMP [facility] Interpretation and review of laboratory results Abnormal [facility] Prepare RBC: 4 Unitson 03-28 Blood Expiration Date 04/24/2024 11:59:00 PM EST [facility] Blood Expiration Date 04/25/2024 11:59:00 PM EDT [facility] Unit Number [id number] [facility] Unit Number [id number] [facility] Unit Number [id number] [facility] Unit Number [id number] [facility] Basic metabolic 2000 panelon 03-27-2024 Anion gap [Moles/Vol] 12 mmol/L 10 - 2 0 mmol/L [facility] Calcium [Mass/Vol] 6.6 mg/dL Low 8.6 - 10. 6 mg/dL [facility] Chloride [Moles/Vol] 103 mmol/L 98 - 10 7 mmol/L [facility] CO2 [Moles/Vol] 27 mmol/L 21 - 32 mmol/L [facility] Creatinine [Mass/Vol] 0.74 mg/dL 0.50 - 1.05 mg/dL [facility] eGFR - PINF [facility] Comment on above: Calculations of GFR are performed using the 2020 CKD-EPI Study Refit equation without the race variable for the IDMS-Traceable creatinine methods. https://jasn.asnjournals.org/content//ASN.095030 5376 Glucose [Mass/Vol] 144 mg/dL High 74 - 99 mg/dL [facility] Interpretation and review of laboratory results Abnormal [facility] Potassium [Moles/Vol] 6.1 mmol/L Critically high 3.5 - 5.3 mmol/L [facility] Sodium [Moles/Vol] 136 mmol/L 136 - 145 mmol/L [facility] Urea nitrogen [Mass/Vol] 15 mg/dL 6 - 23 mg/dL [facility] Anion gap [Moles/Vol] 12 mmol/L Normal 10-20 [facility] Comment on above: Performed By: #### 2 4321-2 ####JANETH Galo ([id number])[facility] ([facility])[address] [place] [address] Calcium [Mass/Vol] 6.6 mg/dL Low 8.6-10.6 [facility] Comment on above: Performed By: #### 2 4321-2 ####JANETH GRAFF L ([id number])[facility] ([facility])[address] [place] [address] Chloride [Moles/Vol] 103 mmol/L Normal 98-107 [facility] Comment on above: Performed By: #### 2 4321-2 ####JANETH Galo ([id number])[facility] ([facility])[address] [place] [address] CO2 [Moles/Vol] 27 mmol/L Normal 21-32 [facility] Comment on above: Performed By: #### 2 4321-2 ####JANETH Galo ([id number])[facility] ([facility])[address] [place] [address] Creatinine [Mass/Vol] 0.74 mg/dL Normal 0.50-1.05 [facility] Comment on above: Performed By: #### 2 4321-2 ####JANETH Galo ([id number])[facility] ([facility])[address] [place] [address] GFR/1.73 sq M.predicted MDRD (S/P/Bld) [Vol rate/Area] mL/min/{1.73_m2} Normal >60 [facility] Comment on above: Result Comment: Calc ulations of estimated GFR are performed using the 2020 CKD-EPI Study Refit equation without the race variable for the IDMS-Traceable creatinine methods.https://jasn.asnjournals.org/content/early/ N.9789083106 Performed By: #### 2 4321-2 ####JANETH Galo ([id number])[facility] ([facility])[address] [place] [address] Glucose [Mass/Vol] 144 mg/dL High 74-99 [facility] Comment on above: Performed By: #### 2 4321-2 ####JANETH GRAFF L ([id number])[facility] ([facility])[address] [place] [address] Potassium [Moles/Vol] 6.1 mmol/L Critically high 3.5-5.3 [facility] Comment on above: Performed By: #### 2 4321-2 ####JANETH Galo ([id number])[facility] ([facility])[address] [place] [address] Sodium [Moles/Vol] 136 mmol/L Normal 136-145 [facility] Comment on above: Performed By: #### 2 4321-2 ####JANETH Galo ([id number])[facility] ([facility])[address] [place] [address] Urea nitrogen [Mass/Vol] 15 mg/dL Normal 6-23 [facility] Comment on above: Performed By: #### 2 4321-2 ####JANETH GRAFF L ([id number])[facility] ([facility])[address] [place] [address] Anion gap [Moles/Vol] 12 mmol/L 10 - 2 0 mmol/L [facility] Calcium [Mass/Vol] 8.5 mg/dL Low 8.6 - 10. 6 mg/dL [facility] Chloride [Moles/Vol] 104 mmol/L 98 - 10 7 mmol/L [facility] CO2 [Moles/Vol] 26 mmol/L 21 - 32 mmol/L [facility] Creatinine [Mass/Vol] 0.76 mg/dL 0.50 - 1.05 mg/dL [facility] eGFR - PINF [facility] Comment on above: Calculations of bill mated GFR are performed using the 2020 CKD-EPI Study Refit equation without the race variable for the IDMS-Traceable creatinine methods. https://jasn.asnjournals.org/content//ASN.125800 2573 Glucose [Mass/Vol] 110 mg/dL High 74 - 99 mg/dL [facility] Interpretation and review of laboratory results Abnormal [facility] Potassium [Moles/Vol] 4.8 mmol/L 3.5 - 5.3 mmol/L [facility] Sodium [Moles/Vol] 137 mmol/L 136 - 145 mmol/L [facility] Urea nitrogen [Mass/Vol] 18 mg/dL 6 - 23 mg/dL [facility] Anion gap [Moles/Vol] 12 mmol/L Normal 10-20 [facility] Comment on above: Performed By: #### 2 4321-2 ####JANETH GRAFF L ([id number])[facility] ([facility])[address] [place] [address] Calcium [Mass/Vol] 8.5 mg/dL Low 8.6-10.6 [facility] Comment on above: Performed By: #### 2 4321-2 ####JANETH GRAFF L ([id number])[facility] ([facility])[address] [place] [address] Chloride [Moles/Vol] 104 mmol/L Normal 98-107 [facility] Comment on above: Performed By: #### 2 4321-2 ####JANETH GRAFF L ([id number])[facility] ([facility])[address] [place] [address] CO2 [Moles/Vol] 26 mmol/L Normal 21-32 [facility] Comment on above: Performed By: #### 2 4321-2 ####JANETH GRAFF L ([id number])[facility] ([facility])[address] [place] [address] Creatinine [Mass/Vol] 0.76 mg/dL Normal 0.50-1.05 [facility] Comment on above: Performed By: #### 2 4321-2 ####JANETH GRAFF L ([id number])[facility] ([facility])[address] [place] [address] GFR/1.73 sq M.predicted MDRD (S/P/Bld) [Vol rate/Area] mL/min/{1.73_m2} Normal >60 [facility] Comment on above: Result Comment: Calc ulations of estimated GFR are performed using the 2020 CKD-EPI Study Refit equation without the race variable for the IDMS-Traceable creatinine methods.https://jasn.asnjournals.org/content/early// N.5057228418 Performed By: #### 2 4321-2 ####JANETH MCDONALDTZER L ([id number])[facility] ([facility])[address] [place] [address] Glucose [Mass/Vol] 110 mg/dL High 74-99 [facility] Comment on above: Performed By: #### 2 4321-2 ####JANETH SCHMOTZER L ([id number])[facility] ([facility])[address] [place] [address] Potassium [Moles/Vol] 4.8 mmol/L Normal 3.5-5.3 [facility] Comment on above: Performed By: #### 2 4321-2 ####JANETH SCHMOTZER L ([id number])[facility] ([facility])[address] [place] [address] Sodium [Moles/Vol] 137 mmol/L Normal 136-145 [facility] Comment on above: Performed By: #### 2 4321-2 ####JANETH SCHMOTZER L ([id number])[facility] ([facility])[address] [place] [address] Urea nitrogen [Mass/Vol] 18 mg/dL Normal 6-23 [facility] Comment on above: Performed By: #### 2 4321-2 ####JANETH SCHMOTZER L ([id number])[facility] ([facility])[address] [place] [address] C reactive proteinon 025 CRP [Mass/Vol] 21.74 mg/dL High <1.00 [facility] Comment on above: Performed By: #### 1 988-5 ####JANETH Galo ([id number])[facility] ([facility])[address] [place] [address] C-reactive proteinon 025 CRP [Mass/Vol] 21.74 mg/dL High NINF - 1.00 mg/dL [facility] CBC panel Auto (Bld)on 03-27 Erythrocyte distribution width (RBC) [Ratio] 17.2 % High 11.5 - 14.5 % [facility] Hematocrit (Bld) [Volume fraction] 28.4 % Low 36.0 - 46.0 % [facility] Hemoglobin (Bld) [Mass/Vol] 8.3 g/dL Low 12.0 - 16.0 g/dL [facility] Interpretation and review of laboratory results Abnormal [facility] MCH (RBC) [Entitic mass] 26.7 pg 26.0 - 34.0 pg [facility] MCHC (RBC) [Mass/Vol] 29.2 g/dL Low 32.0 - 36.0 g/dL [facility] MCV (RBC) [Entitic vol] 91 fL 80 - 100 fL [facility] Nucleated RBC/100 WBC (Bld) [Ratio] 8.4 % High [facility] Platelets (Bld) [#/Vol] 372 10*3/uL [facility] RBC (Bld) [#/Vol] 3.11 10*6/uL Low [facility] WBC (Bld) [#/Vol] 18.2 10*3/uL High [facility] Erythrocyte distribution width (RBC) [Ratio] 17.2 % High 11.5-14.5 [facility] Comment on above: Performed By: #### 5 8410-2 ####JANETH Galo ([id number])[facility] ([facility])[address] [place] [address] Hematocrit (Bld) [Volume fraction] 28.4 % Low 36.0-46.0 [facility] Comment on above: Performed By: #### 5 8410-2 ####JANETH Galo ([id number])[facility] ([facility])[id number] [place] [address] Hemoglobin (Bld) [Mass/Vol] 8.3 g/dL Low 12.0-16.0 [facility] Comment on above: Performed By: #### 5 8410-2 ####JANETH Galo ([id number])[facility] ([facility])[address] [place] [address] MCH (RBC) [Entitic mass] 26.7 pg Normal 26.0-34.0 [facility] Comment on above: Performed By: #### 5 8410-2 ####JANETH Galo ([id number])[facility] ([facility])[address] [place] [address] MCHC (RBC) [Mass/Vol] 29.2 g/dL Low 32.0-36.0 [facility] Comment on above: Performed By: #### 5 8410-2 ####JANETH Galo ([id number])[facility] ([facility])[address] [place] [address] MCV (RBC) [Entitic vol] 91 fL Normal 80-100 [facility] Comment on above: Performed By: #### 5 8410-2 ####JANETH Galo ([id number])[facility] ([facility])[address] [place] [address]97[address] Nucleated RBC/100 WBC (Bld) [Ratio] 8.4 /100 WBCs High 0.0-0.0 [facility] Comment on above: Performed By: #### 5 8410-2 ####JANETH Galo ([id number])[facility] ([facility])[id number] [place] [address] Platelets (Bld) [#/Vol] 372 x10*3/uL Normal 150-450 [facility] Comment on above: Performed By: #### 5 8410-2 ####JANETH Galo ([id number])[facility] ([facility])[address] [place] [address] RBC (Bld) [#/Vol] 3.11 x10*6/uL Low 4.00-5.20 [facility] Comment on above: Performed By: #### 5 8410-2 ####JANETH Galo ([id number])[facility] ([facility])[address] [place] [address] WBC (Bld) [#/Vol] 18.2 x10*3/uL High 4.4-11.3 [facility] Comment on above: Performed By: #### 5 8410-2 ####JANETH Galo ([id number])[facility] ([facility])[address] [place] [address] Erythrocyte distribution width (RBC) [Ratio] 17.2 % High 11.5 - 14.5 % [facility] Hematocrit (Bld) [Volume fraction] 28.2 % Low 36.0 - 46.0 % [facility] Hemoglobin (Bld) [Mass/Vol] 8.5 g/dL Low 12.0 - 16.0 g/dL [facility] Interpretation and review of laboratory results Abnormal [facility] MCH (RBC) [Entitic mass] 26.7 pg 26.0 - 34.0 pg [facility] MCHC (RBC) [Mass/Vol] 30.1 g/dL Low 32.0 - 36.0 g/dL [facility] MCV (RBC) [Entitic vol] 89 fL 80 - 100 fL [facility] Nucleated RBC/100 WBC (Bld) [Ratio] 8.5 % High [facility] Platelets (Bld) [#/Vol] 350 10*3/uL [facility] RBC (Bld) [#/Vol] 3.18 10*6/uL Low [facility] WBC (Bld) [#/Vol] 19.2 10*3/uL High [facility] Erythrocyte distribution width (RBC) [Ratio] 17.2 % High 11.5-14.5 [facility] Comment on above: Performed By: #### 5 8410-2 ####JANETH Galo ([id number])[facility] ([facility])[address] [place] [address] Hematocrit (Bld) [Volume fraction] 28.2 % Low 36.0-46.0 [facility] Comment on above: Performed By: #### 5 8410-2 ####JANETH Galo ([id number])[facility] ([facility])[address] [place] [address] Hemoglobin (Bld) [Mass/Vol] 8.5 g/dL Low 12.0-16.0 [facility] Comment on above: Performed By: #### 5 8410-2 ####JANETH Galo ([id number])[facility] ([facility])[address] [place] [address] MCH (RBC) [Entitic mass] 26.7 pg Normal 26.0-34.0 [facility] Comment on above: Performed By: #### 5 8410-2 ####JANETH Galo ([id number])[facility] ([facility])[address] [place] [address] MCHC (RBC) [Mass/Vol] 30.1 g/dL Low 32.0-36.0 [facility] Comment on above: Performed By: #### 5 8410-2 ####JANETH Galo ([id number])[facility] ([facility])[address] [place] [address]67[address] MCV (RBC) [Entitic vol] 89 fL Normal 80-100 [facility] Comment on above: Performed By: #### 5 8410-2 ####JANETH Galo ([id number])[facility] ([facility])[address] [place] [address] Nucleated RBC/100 WBC (Bld) [Ratio] 8.5 /100 WBCs High 0.0-0.0 [facility] Comment on above: Performed By: #### 5 8410-2 ####JANETH Galo ([id number])[facility] ([facility])[address] [place] [address] Platelets (Bld) [#/Vol] 350 x10*3/uL Normal 150-450 [facility] Comment on above: Performed By: #### 5 8410-2 ####JANETH Galo ([id number])[facility] ([facility])[address] [place] [address] RBC (Bld) [#/Vol] 3.18 x10*6/uL Low 4.00-5.20 [facility] Comment on above: Performed By: #### 5 8410-2 ####JANETH Galo ([id number])[facility] ([facility])[id number] [place] [address] WBC (Bld) [#/Vol] 19.2 x10*3/uL High 4.4-11.3 [facility] Comment on above: Performed By: #### 5 8410-2 ####JANETH Galo ([id number])[facility] ([facility])[address] [place] [address] 36[address] CRP [Mass/Vol]on 03-27-2024 Interpretation and review of laboratory results Abnormal [facility] ESR Westergren method (Bld) [Velocity]on 03-27-2024 ESR (Bld) [Velocity] 48 mm/h High 0 - 30 mm/h [facility] Interpretation and review of laboratory results Abnormal [facility] ESR (Bld) [Velocity] 48 mm/h High 0-30 [facility] Comment on above: Performed By: #### 4 537-7 ####JANETH Galo ([id number])[facility] ([facility])[address] [place] [address] 14273 Basic metabolic 2000 panelon 03-26-2024 Anion gap [Moles/Vol] 13 mmol/L 10 - 2 0 mmol/L [facility] Calcium [Mass/Vol] 8.1 mg/dL Low 8.6 - 10. 6 mg/dL [facility] Chloride [Moles/Vol] 102 mmol/L 98 - 10 7 mmol/L [facility] CO2 [Moles/Vol] 24 mmol/L 21 - 32 mmol/L [facility] Creatinine [Mass/Vol] 1.06 mg/dL High 0.50 - 1.05 mg/dL [facility] GFR/1.73 sq M.predicted among non-blacks MDRD (S/P/Bld) [Vol rate/Area] 63 mL/min/{1.73_m2} - PINF [facility] Comment on above: Calculations of bill mated GFR are performed using the 2020 CKD-EPI Study Refit equation without the race variable for the IDMS-Traceable creatinine methods. https://jasn.asnjournals.org/content/early//ASN.926248 6242 Glucose [Mass/Vol] 118 mg/dL High 74 - 99 mg/dL [facility] Interpretation and review of laboratory results Abnormal [facility] Potassium [Moles/Vol] 5 mmol/L 3.5 - 5.3 mmol/L [facility] Sodium [Moles/Vol] 134 mmol/L Low 136 - 145 mmol/L [facility] Urea nitrogen [Mass/Vol] 23 mg/dL 6 - 23 mg/dL [facility] Anion gap [Moles/Vol] 13 mmol/L Normal 10-20 [facility] Comment on above: Performed By: #### 2 4321-2 ####JANETH Galo ([id number])[facility] ([facility])[address] [place] [address] Calcium [Mass/Vol] 8.1 mg/dL Low 8.6-10.6 [facility] Comment on above: Performed By: #### 2 4321-2 ####JANETH Galo ([id number])[facility] ([facility])[address] [place] [address] Chloride [Moles/Vol] 102 mmol/L Normal 98-107 [facility] Comment on above: Performed By: #### 2 4321-2 ####JANETH Galo (19908)[facility] ([facility])[address] [place] [address] CO2 [Moles/Vol] 24 mmol/L Normal 21-32 [facility] Comment on above: Performed By: #### 2 4321-2 ####JANETH GRAFF L ([id number])[facility] ([facility])[address] [place] [address] Creatinine [Mass/Vol] 1.06 mg/dL High 0.50-1.05 [facility] Comment on above: Performed By: #### 2 4321-2 ####JANETH Galo ([id number])[facility] ([facility])[address] [place] [address] Glomerular filtration rate/1.73 sq M.predicted 63 mL/min/1.73m*2 Normal >60 [facility] Comment on above: Result Comment: Calc ulations of estimated GFR are performed using the 2020 CKD-EPI Study Refit equation without the race variable for the IDMS-Traceable creatinine methods.https://jasn.asnjournals.org/content// N.1207677602 Performed By: #### 2 432-2 ####JANETH Galo ([id number])[facility] ([facility])[address] [place] [address] Glucose [Mass/Vol] 118 mg/dL High 74-99 [facility] Comment on above: Performed By: #### 2 4321-2 ####JANETH GRAFF L ([id number])[facility] ([facility])[address] [place] [address] Potassium [Moles/Vol] 5.0 mmol/L Normal 3.5-5.3 [facility] Comment on above: Performed By: #### 2 4321-2 ####JANETH GRAFF L ([id number])[facility] ([facility])[address] [place] [address] Sodium [Moles/Vol] 134 mmol/L Low 136-145 [facility] Comment on above: Performed By: #### 2 4321-2 ####JANETH Galo ([id number])[facility] ([facility])[address] [place] [address] Urea nitrogen [Mass/Vol] 23 mg/dL Normal 6-23 [facility] Comment on above: Performed By: #### 2 4321-2 ####JANETH Galo ([id number])[facility] ([facility])[address] [place] [address] Anion gap [Moles/Vol] 13 mmol/L 10 - 2 0 mmol/L [facility] Calcium [Mass/Vol] 8.7 mg/dL 8.6 - 10. 6 mg/dL [facility] Chloride [Moles/Vol] 101 mmol/L 98 - 10 7 mmol/L [facility] CO2 [Moles/Vol] 24 mmol/L 21 - 32 mmol/L [facility] Creatinine [Mass/Vol] 1.33 mg/dL High 0.50 - 1.05 mg/dL [facility] GFR/1.73 sq M.predicted among non-blacks MDRD (S/P/Bld) [Vol rate/Area] 48 mL/min/{1.73_m2} Low - PINF [facility] Comment on above: Calculations of bill mated GFR are performed using the 2020 CKD-EPI Study Refit equation without the race variable for the IDMS-Traceable creatinine methods. https://jasn.asnjournals.org/content//ASN.457260 6387 Glucose [Mass/Vol] 93 mg/dL 74 - 99 mg/dL [facility] Interpretation and review of laboratory results Abnormal [facility] Potassium [Moles/Vol] 4.4 mmol/L 3.5 - 5.3 mmol/L [facility] Sodium [Moles/Vol] 134 mmol/L Low 136 - 145 mmol/L [facility] Urea nitrogen [Mass/Vol] 32 mg/dL High 6 - 23 mg/dL [facility] Anion gap [Moles/Vol] 13 mmol/L Normal 10-20 [facility] Comment on above: Performed By: #### 2 4321-2 ####JANETH RANGELER L ([id number])[facility] ([facility])[address] [place] [address] Calcium [Mass/Vol] 8.7 mg/dL Normal 8.6-10.6 [facility] Comment on above: Performed By: #### 2 4321-2 ####JANETH CONNORMOTZER L ([id number])[facility] ([facility])[address] [place] [address] Chloride [Moles/Vol] 101 mmol/L Normal 98-107 [facility] Comment on above: Performed By: #### 2 4321-2 ####JANETH CONNORMOTZER L ([id number])[facility] ([facility])[address] [place] [address] CO2 [Moles/Vol] 24 mmol/L Normal 21-32 [facility] Comment on above: Performed By: #### 2 4321-2 ####JANETH GRAFF L ([id number])[facility] ([facility])[address] [place] [address] Creatinine [Mass/Vol] 1.33 mg/dL High 0.50-1.05 [facility] Comment on above: Performed By: #### 2 4321-2 ####JANETH CONNORMOTZER L ([id number])[facility] ([facility])[address] [place] [address] Glomerular filtration rate/1.73 sq M.predicted 48 mL/min/1.73m*2 Low >60 [facility] Comment on above: Result Comment: Calc ulations of estimated GFR are performed using the 2020 CKD-EPI Study Refit equation without the race variable for the IDMS-Traceable creatinine methods.https://jasn.asnjournals.org/content/early/ N.1564927082 Performed By: #### 2 4321-2 ####JANETH Galo ([id number])[facility] ([facility])[address] [place] [address] Glucose [Mass/Vol] 93 mg/dL Normal 74-99 [facility] Comment on above: Performed By: #### 2 4321-2 ####JANETH Galo ([id number])[facility] ([facility])[address] [place] [address] Potassium [Moles/Vol] 4.4 mmol/L Normal 3.5-5.3 [facility] Comment on above: Performed By: #### 2 4321-2 ####JANETH Galo ([id number])[facility] ([facility])[address] [place] [address] Sodium [Moles/Vol] 134 mmol/L Low 136-145 [facility] Comment on above: Performed By: #### 2 4321-2 ####JANETH Galo ([id number])[facility] ([facility])[address] [place] [address] Urea nitrogen [Mass/Vol] 32 mg/dL High 6-23 [facility] Comment on above: Performed By: #### 2 4321-2 ####JANETH Galo ([id number])[facility] ([facility])[address] [place] [address] C reactive proteinon 025 CRP [Mass/Vol] 20.33 mg/dL High <1.00 [facility] Comment on above: Performed By: #### 1 988-5 ####JANETH Galo ([id number])[facility] ([facility])[address] [place] [address] C-reactive proteinon 025 CRP [Mass/Vol] 20.33 mg/dL High NINF - 1.00 mg/dL [facility] CBC panel Auto (Bld)on 03-26 Erythrocyte distribution width (RBC) [Ratio] 16.7 % High 11.5 - 14.5 % [facility] Hematocrit (Bld) [Volume fraction] 28.4 % Low 36.0 - 46.0 % [facility] Hemoglobin (Bld) [Mass/Vol] 8.8 g/dL Low 12.0 - 16.0 g/dL [facility] Interpretation and review of laboratory results Abnormal [facility] MCH (RBC) [Entitic mass] 27.1 pg 26.0 - 34.0 pg [facility] MCHC (RBC) [Mass/Vol] 31 g/dL Low 32.0 - 36.0 g/dL [facility] MCV (RBC) [Entitic vol] 87 fL 80 - 100 fL [facility] Nucleated RBC/100 WBC (Bld) [Ratio] 8.4 % High [facility] Platelets (Bld) [#/Vol] 315 10*3/uL [facility] RBC (Bld) [#/Vol] 3.25 10*6/uL Low [facility] WBC (Bld) [#/Vol] 19.6 10*3/uL High [facility] Erythrocyte distribution width (RBC) [Ratio] 16.7 % High 11.5-14.5 [facility] Comment on above: Performed By: #### 5 8410-2 ####JANETH Galo ([id number])[facility] ([facility])[id number] [place] [address] Hematocrit (Bld) [Volume fraction] 28.4 % Low 36.0-46.0 [facility] Comment on above: Performed By: #### 5 8410-2 ####JANETH Galo ([id number])[facility] ([facility])[address] [place] [address] Hemoglobin (Bld) [Mass/Vol] 8.8 g/dL Low 12.0-16.0 [facility] Comment on above: Performed By: #### 5 8410-2 ####JANETH Galo ([id number])[facility] ([facility])[address] [place] [address] MCH (RBC) [Entitic mass] 27.1 pg Normal 26.0-34.0 [facility] Comment on above: Performed By: #### 5 8410-2 ####JANETH Galo ([id number])[facility] ([facility])[address] [place] [address] MCHC (RBC) [Mass/Vol] 31.0 g/dL Low 32.0-36.0 [facility] Comment on above: Performed By: #### 5 8410-2 ####JANETH Galo ([id number])[facility] ([facility])[address] [place] [address] MCV (RBC) [Entitic vol] 87 fL Normal 80-100 [facility] Comment on above: Performed By: #### 5 8410-2 ####JANETH Galo ([id number])[facility] ([facility])[address] [place] [address] Nucleated RBC/100 WBC (Bld) [Ratio] 8.4 /100 WBCs High 0.0-0.0 [facility] Comment on above: Performed By: #### 5 8410-2 ####JANETH Galo ([id number])[facility] ([facility])[address] [place] [address] Platelets (Bld) [#/Vol] 315 x10*3/uL Normal 150-450 [facility] Comment on above: Performed By: #### 5 8410-2 ####JANETH Galo ([id number])[facility] ([facility])[address] [place] [address] RBC (Bld) [#/Vol] 3.25 x10*6/uL Low 4.00-5.20 [facility] Comment on above: Performed By: #### 5 8410-2 ####JANETH Galo ([id number])[facility] ([facility])[address] [place] [address] WBC (Bld) [#/Vol] 19.6 x10*3/uL High 4.4-11.3 [facility] Comment on above: Performed By: #### 5 8410-2 ####JANETH Galo ([id number])[facility] ([facility])[address] [place] [address] Erythrocyte distribution width (RBC) [Ratio] 16.3 % High 11.5 - 14.5 % [facility] Hematocrit (Bld) [Volume fraction] 29.6 % Low 36.0 - 46.0 % [facility] Hemoglobin (Bld) [Mass/Vol] 8.9 g/dL Low 12.0 - 16.0 g/dL [facility] Interpretation and review of laboratory results Abnormal [facility] MCH (RBC) [Entitic mass] 26.9 pg 26.0 - 34.0 pg [facility] MCHC (RBC) [Mass/Vol] 30.1 g/dL Low 32.0 - 36.0 g/dL [facility] MCV (RBC) [Entitic vol] 89 fL 80 - 100 fL [facility] Nucleated RBC/100 WBC (Bld) [Ratio] 5.7 % High [facility] Platelets (Bld) [#/Vol] 307 10*3/uL [facility] RBC (Bld) [#/Vol] 3.31 10*6/uL Low [facility] WBC (Bld) [#/Vol] 20.1 10*3/uL [facility] Erythrocyte distribution width (RBC) [Ratio] 16.3 % High 11.5-14.5 [facility] Comment on above: Performed By: #### 5 8410-2 ####JANETH Galo ([id number])[facility] ([facility])[address] [place] [address] Hematocrit (Bld) [Volume fraction] 29.6 % Low 36.0-46.0 [facility] Comment on above: Performed By: #### 5 8410-2 ####JANETH Galo ([id number])[facility] ([facility])[address] [place] [address] Hemoglobin (Bld) [Mass/Vol] 8.9 g/dL Low 12.0-16.0 [facility] Comment on above: Performed By: #### 5 8410-2 ####JANETH Galo ([id number])[facility] ([facility])[address] [place] [address] MCH (RBC) [Entitic mass] 26.9 pg Normal 26.0-34.0 [facility] Comment on above: Performed By: #### 5 8410-2 ####JANETH Galo ([id number])[facility] ([facility])[address] [place] [address] MCHC (RBC) [Mass/Vol] 30.1 g/dL Low 32.0-36.0 [facility] Comment on above: Performed By: #### 5 8410-2 ####JANETH Galo ([id number])[facility] ([facility])[address] [place] [address] MCV (RBC) [Entitic vol] 89 fL Normal 80-100 [facility] Comment on above: Performed By: #### 5 8410-2 ####JANETH Galo ([id number])[facility] ([facility])[address] [place] [address] Nucleated RBC/100 WBC (Bld) [Ratio] 5.7 /100 WBCs High 0.0-0.0 [facility] Comment on above: Performed By: #### 5 8410-2 ####JANETH Galo ([id number])[facility] ([facility])[address] [place] [address] Platelets (Bld) [#/Vol] 307 x10*3/uL Normal 150-450 [facility] Comment on above: Performed By: #### 5 8410-2 ####JANETH Galo ([id number])[facility] ([facility])[address] [place] [address] RBC (Bld) [#/Vol] 3.31 x10*6/uL Low 4.00-5.20 [facility] Comment on above: Performed By: #### 5 8410-2 ####JANETH HARRYSARITA L ([id number])[facility] ([facility])[address] [place] [address] WBC (Bld) [#/Vol] 20.1 x10*3/uL High 4.4-11.3 [facility] Comment on above: Performed By: #### 5 8410-2 ####JANETH HARRYPIEDADER L ([id number])[facility] ([facility])[address] [place] [address] CRP [Mass/Vol]on 03-26-2024 Interpretation and review of laboratory results Abnormal [facility] XR Chest Single viewon 03-26 1. No evidence of pneumothorax status post left subclavian approach central venous catheter placement. I personally reviewed the images/study and I agree with the findings as stated by Nereyda Das MD, PGY-2 this study was interpreted at [place], [place]. 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 COMPARISON: Chest x-ray from 03/11/24 ACCESSION NUMBER(S): [id number] ORDERING CLINICIAN: CLARK WALTERS FINDINGS: AP radiograph [...] MD, PGY-2 this study was interpreted at [facility], [place], [place]. MACRO: None Signed by: Osmel Viera 03/26/2024 10:42 AM Dictation workstation: [id number] [facility] Work Phone: XR Chest Single viewOrdered By: Osmel Viera on 03-26-2024 [facility] Work Phone: Bacteria identifiedon 2024 Bacteria identified Cx Nom (Unsp spec) Abnormal [facility] Comment on above: Performed By: #### 6 463-4 ####JANETH Galo ([id number])[facility] ([facility])[address] [place] [address] Basic metabolic 2000 panelon 03-25-2024 Anion gap [Moles/Vol] 13 mmol/L 10 - 2 0 mmol/L [facility] Calcium [Mass/Vol] 8.7 mg/dL 8.6 - 10. 6 mg/dL [facility] Chloride [Moles/Vol] 103 mmol/L 98 - 10 7 mmol/L [facility] CO2 [Moles/Vol] 24 mmol/L 21 - 32 mmol/L [facility] Creatinine [Mass/Vol] 1.62 mg/dL High 0.50 - 1.05 mg/dL [facility] GFR/1.73 sq M.predicted among non-blacks MDRD (S/P/Bld) [Vol rate/Area] 38 mL/min/{1.73_m2} Low - PINF [facility] Comment on above: Calculations of bill mated GFR are performed using the 2020 CKD-EPI Study Refit equation without the race variable for the IDMS-Traceable creatinine methods. https://jasn.asnjournals.org/content//ASN.168215 3946 Glucose [Mass/Vol] 106 mg/dL High 74 - 99 mg/dL [facility] Potassium [Moles/Vol] 5.2 mmol/L 3.5 - 5.3 mmol/L [facility] Sodium [Moles/Vol] 135 mmol/L Low 136 - 145 mmol/L [facility] Urea nitrogen [Mass/Vol] 34 mg/dL High 6 - 23 mg/dL [facility] Anion gap [Moles/Vol] 13 mmol/L Normal 10-20 [facility] Comment on above: Performed By: #### 2 4321-2 ####JANETH Galo ([id number])[facility] ([facility])[address] [place] [address] Calcium [Mass/Vol] 8.7 mg/dL Normal 8.6-10.6 [facility] Comment on above: Performed By: #### 2 4321-2 ####JANETH Galo ([id number])[facility] ([facility])[address] [place] [address] Chloride [Moles/Vol] 103 mmol/L Normal 98-107 [facility] Comment on above: Performed By: #### 2 4321-2 ####JANETH GRAFF L ([id number])[facility] ([facility])[address] [place] [address] CO2 [Moles/Vol] 24 mmol/L Normal 21-32 [facility] Comment on above: Performed By: #### 2 4321-2 ####JANETH Galo ([id number])[facility] ([facility])[address] [place] [address] Creatinine [Mass/Vol] 1.62 mg/dL High 0.50-1.05 [facility] Comment on above: Performed By: #### 2 4321-2 ####JANETH Galo ([id number])[facility] ([facility])[address] [place] [address] Glomerular filtration rate/1.73 sq M.predicted 38 mL/min/1.73m*2 Low >60 [facility] Comment on above: Result Comment: Calc ulations of estimated GFR are performed using the 2020 CKD-EPI Study Refit equation without the race variable for the IDMS-Traceable creatinine methods.https://jasn.asnjournals.org/content/early/ N.5419210918 Performed By: #### 2 4321-2 ####JANETH Galo ([id number])[facility] ([facility])[address] [place] [address] Glucose [Mass/Vol] 106 mg/dL High 74-99 [facility] Comment on above: Performed By: #### 2 4321-2 ####JANETH Galo ([id number])[facility] ([facility])[address] [place] [address] Potassium [Moles/Vol] 5.2 mmol/L Normal 3.5-5.3 [facility] Comment on above: Performed By: #### 2 4321-2 ####JANETH Galo ([id number])[facility] ([facility])[address] [place] [address] Sodium [Moles/Vol] 135 mmol/L Low 136-145 [facility] Comment on above: Performed By: #### 2 4321-2 ####JANETH Galo (06298)[facility] ([facility])[address] [place] [address] Urea nitrogen [Mass/Vol] 34 mg/dL High 6-23 [facility] Comment on above: Performed By: #### 2 4321-2 ####JANETH Galo ([id number])[facility] ([facility])[address] [place] [address] Blood type and Indirect anti body screen panel (Bld)on 03-25-2024 ABO group Nom (Bld) A [facility] Blood group antibody screen Ql Negative [facility] D Ag Ql (Bld) Positive [facility] ABO group Nom (Bld) A Normal [facility] Comment on above: Performed By: #### 3 4532-2 ####JANETH Galo ([id number])[facility] ([facility])[address] [place] [address] Blood group antibody screen Ql Negative [facility] Comment on above: Performed By: #### 3 4532-2 ####JANETH Galo ([id number])[facility] ([facility])[address] [place], [place] [id number] D Ag Ql (Bld) Positive [facility] Comment on above: Performed By: #### 3 4532-2 ####JANETH Galo (85232)[facility] ([facility])[address] [place], [place] [id number] CBC panel Auto (Bld)on 03-25 Erythrocyte distribution width (RBC) [Ratio] 15.8 % High 11.5 - 14.5 % [facility] Hematocrit (Bld) [Volume fraction] 25.9 % Low 36.0 - 46.0 % [facility] Hemoglobin (Bld) [Mass/Vol] 8.4 g/dL Low 12.0 - 16.0 g/dL [facility] Interpretation and review of laboratory results Abnormal [facility] MCH (RBC) [Entitic mass] 26.7 pg 26.0 - 34.0 pg [facility] MCHC (RBC) [Mass/Vol] 32.4 g/dL 32.0 - 36.0 g/dL [facility] MCV (RBC) [Entitic vol] 82 fL 80 - 100 fL [facility] Nucleated RBC/100 WBC (Bld) [Ratio] 4.6 % High [facility] Platelets (Bld) [#/Vol] 339 10*3/uL [facility] RBC (Bld) [#/Vol] 3.15 10*6/uL Low [facility] WBC (Bld) [#/Vol] 21.8 10*3/uL High [facility] Erythrocyte distribution width (RBC) [Ratio] 15.8 % High 11.5-14.5 [facility] Comment on above: Performed By: #### 5 8410-2 ####JANETH Galo ([id number])[facility] ([facility])[address] [place] [address] Hematocrit (Bld) [Volume fraction] 25.9 % Low 36.0-46.0 [facility] Comment on above: Performed By: #### 5 8410-2 ####JANETH Galo (05501)[facility] ([facility])[id number] [place] [address] Hemoglobin (Bld) [Mass/Vol] 8.4 g/dL Low 12.0-16.0 [facility] Comment on above: Performed By: #### 5 8410-2 ####JANETH Galo ([id number])[facility] ([facility])[address] [place] [address] MCH (RBC) [Entitic mass] 26.7 pg Normal 26.0-34.0 [facility] Comment on above: Performed By: #### 5 8410-2 ####JANETH Galo (39238)[facility] ([facility])[address] [place] [address] MCHC (RBC) [Mass/Vol] 32.4 g/dL Normal 32.0-36.0 [facility] Comment on above: Performed By: #### 5 8410-2 ####JANETH Galo ([id number])[facility] ([facility])[address] [place] [address] MCV (RBC) [Entitic vol] 82 fL Normal 80-100 [facility] Comment on above: Performed By: #### 5 8410-2 ####JANETH Galo (04264)[facility] ([facility])[address] [place] [address] Nucleated RBC/100 WBC (Bld) [Ratio] 4.6 /100 WBCs High 0.0-0.0 [facility] Comment on above: Performed By: #### 5 8410-2 ####JANETH Galo ([id number])[facility] ([facility])[address] [place] [address] Platelets (Bld) [#/Vol] 339 x10*3/uL Normal 150-450 [facility] Comment on above: Performed By: #### 5 8410-2 ####JANETH Galo ([id number])[facility] ([facility])[address] [place] [address] RBC (Bld) [#/Vol] 3.15 x10*6/uL Low 4.00-5.20 [facility] Comment on above: Performed By: #### 5 8410-2 ####JANETH Galo ([id number])[facility] ([facility])[address] [place] [address] WBC (Bld) [#/Vol] 21.8 x10*3/uL High 4.4-11.3 [facility] Comment on above: Performed By: #### 5 8410-2 ####JANETH Galo ([id number])[facility] ([facility])[address] [place] [address] Erythrocyte distribution width (RBC) [Ratio] 16.3 % High 11.5 - 14.5 % [facility] Hematocrit (Bld) [Volume fraction] 20.6 % Low 36.0 - 46.0 % [facility] Hemoglobin (Bld) [Mass/Vol] 6.3 g/dL Critically low 12.0 - 16.0 g/dL [facility] Interpretation and review of laboratory results Abnormal [facility] MCH (RBC) [Entitic mass] 25.7 pg Low 26.0 - 34.0 pg [facility] MCHC (RBC) [Mass/Vol] 30.6 g/dL Low 32.0 - 36.0 g/dL [facility] MCV (RBC) [Entitic vol] 84 fL 80 - 100 fL [facility] Nucleated RBC/100 WBC (Bld) [Ratio] 6.1 % High [facility] Platelets (Bld) [#/Vol] 387 10*3/uL [facility] RBC (Bld) [#/Vol] 2.45 10*6/uL Low [facility] WBC (Bld) [#/Vol] 18.4 10*3/uL High [facility] Erythrocyte distribution width (RBC) [Ratio] 16.3 % High 11.5-14.5 [facility] Comment on above: Performed By: #### 5 8410-2 ####JANETH Galo ([id number])[facility] ([facility])[id number] [place] [address] Hematocrit (Bld) [Volume fraction] 20.6 % Low 36.0-46.0 [facility] Comment on above: Performed By: #### 5 8410-2 ####JANETH Galo (98451)[facility] ([facility])[address] [place] [address] Hemoglobin (Bld) [Mass/Vol] 6.3 g/dL Critically low 12.0-16.0 [facility] Comment on above: Performed By: #### 5 8410-2 ####JANETH Galo ([id number])[facility] ([facility])[address] [place] [address] MCH (RBC) [Entitic mass] 25.7 pg Low 26.0-34.0 [facility] Comment on above: Performed By: #### 5 8410-2 ####JANETH Galo ([id number])[facility] ([facility])[address] [place] [address] MCHC (RBC) [Mass/Vol] 30.6 g/dL Low 32.0-36.0 [facility] Comment on above: Performed By: #### 5 8410-2 ####JANETH Galo ([id number])[facility] ([facility])[address] [place] [address] MCV (RBC) [Entitic vol] 84 fL Normal 80-100 [facility] Comment on above: Performed By: #### 5 8410-2 ####JANETH Galo ([id number])[facility] ([facility])[address] [place] [address] Nucleated RBC/100 WBC (Bld) [Ratio] 6.1 /100 WBCs High 0.0-0.0 [facility] Comment on above: Performed By: #### 5 8410-2 ####JANETH Galo ([id number])[facility] ([facility])[address] [place] [address] Platelets (Bld) [#/Vol] 387 x10*3/uL Normal 150-450 [facility] Comment on above: Performed By: #### 5 8410-2 ####JANETH Galo ([id number])[facility] ([facility])[address] [place] [address] RBC (Bld) [#/Vol] 2.45 x10*6/uL Low 4.00-5.20 [facility] Comment on above: Performed By: #### 5 8410-2 ####JANETH Galo ([id number])[facility] ([facility])[address] [place] [address] WBC (Bld) [#/Vol] 18.4 x10*3/uL High 4.4-11.3 [facility] Comment on above: Performed By: #### 5 8410-2 ####JANETH Galo ([id number])[facility] ([facility])[address] [place] [address] Fungus identifiedon 03-25-19 25 Fungus identified Cx Nom (Unsp spec) Normal [facility] Comment on above: Performed By: #### 5 80-1 ####JANETH Galo ([id number])[facility] ([facility])[id number] [place] [address] Gas and Carbon monoxide and Electrolytes panel (BldA)on 03-25-2024 Anion gap 4 (BldA) [Moles/Vol] 9 Low [facility] Base excess Calc (Bld) [Moles/Vol] -4.5000 mmol/L Low -2.0 - 3.0 mmol/L [facility] Calcium.ionized (BldA) [Moles/Vol] 1.09 mmol/L Low 1.10 - 1.33 mmol/L [facility] Chloride (BldA) [Moles/Vol] 111 mmol/L High 98 - 107 mmol/L [facility] CO2 (Bld) [Partial pressure] 40 mm[Hg] [facility] Glucose [Mass/Vol] 91 mg/dL 74 - 99 mg/dL [facility] HCO3 (Bld) [Moles/Vol] 21.1 mmol/L Low 22.0 - 26.0 mmol/L [facility] Hematocrit Est (Bld) [Volume fraction] 22 % Low 36.0 - 46.0 % [facility] Hemoglobin (Bld) [Mass/Vol] 7.3 g/dL Low 12.0 - 16.0 g/dL [facility] Interpretation and review of laboratory results Abnormal [facility] Lactate (BldA) [Moles/Vol] 0.7 mmol/L 0.4 - 2.0 mmol/L [facility] Oxygen (Bld) [Partial pressure] 89 mm[Hg] [facility] Oxyhemoglobin (BldA) [Mass fraction] 95.8 % 94.0 - 98.0 % [facility] pH (Bld) 7.33 [pH] Low 7.38 - 7.42 pH [facility] Potassium (BldA) [Moles/Vol] 4.9 mmol/L 3.5 - 5.3 mmol/L [facility] Sodium (BldA) [Moles/Vol] 136 mmol/L 136 - 145 mmol/L [facility] Anion gap 4 (BldA) [Moles/Vol] 9 mmo/L Low 10-25 [facility] Comment on above: Performed By: #### 9 3685-6 ####JANETH Galo ([id number])[facility] ([facility])[address] [place] [address] Base excess Calc (Bld) [Moles/Vol] -4.5000 mmol/L Low -2.0-3.0 [facility] Comment on above: Performed By: #### 9 3685-6 ####JANETH Galo ([id number])[facility] ([facility])[id number] [place] [address] Calcium.ionized (BldA) [Moles/Vol] 1.09 mmol/L Low 1.10-1.33 [facility] Comment on above: Performed By: #### 9 3685-6 ####JANETH Galo ([id number])[facility] ([facility])[address] [place] [address] Chloride (BldA) [Moles/Vol] 111 mmol/L High 98-107 [facility] Comment on above: Performed By: #### 9 3685-6 ####JANETH Galo ([id number])[facility] ([facility])[address] [place] [address] CO2 (Bld) [Partial pressure] 40 mm Hg Normal 38-42 [facility] Comment on above: Performed By: #### 9 3685-6 ####JANETH Galo ([id number])[facility] ([facility])[address] [place] [address] Glucose [Mass/Vol] 91 mg/dL Normal 74-99 [facility] Comment on above: Performed By: #### 9 3685-6 ####JANETH Galo ([id number])[facility] ([facility])[address] [place] [address] HCO3 (Bld) [Moles/Vol] 21.1 mmol/L Low 22.0-26.0 [facility] Comment on above: Performed By: #### 9 3685-6 ####JANETH Galo ([id number])[facility] ([facility])[address] [place] [address] Hematocrit Est (Bld) [Volume fraction] 22.0 % Low 36.0-46.0 [facility] Comment on above: Performed By: #### 9 3685-6 ####JANETH Galo ([id number])[facility] ([facility])[address] [place] [address] Hemoglobin (Bld) [Mass/Vol] 7.3 g/dL Low 12.0-16.0 [facility] Comment on above: Performed By: #### 9 3685-6 ####JANETH Galo ([id number])[facility] ([facility])[id number] [place] [address] Lactate (BldA) [Moles/Vol] 0.7 mmol/L Normal 0.4-2.0 [facility] Comment on above: Performed By: #### 9 3685-6 ####JANETH Galo ([id number])[facility] ([facility])[id number] [place] [address] Oxygen (Bld) [Partial pressure] 89 mm Hg Normal 85-95 [facility] Comment on above: Performed By: #### 9 3685-6 ####JANETH Galo ([id number])[facility] ([facility])[id number] [place] [address] 26948 Oxyhemoglobin (BldA) [Mass fraction] 95.8 % Normal 94.0-98.0 [facility] Comment on above: Performed By: #### 9 3685-6 ####JANETH Galo ([id number])[facility] ([facility])[address] [place] [address] pH (Bld) 7.33 [pH] Low 7.38-7.42 [facility] Comment on above: Performed By: #### 9 3685-6 ####JANETH Galo ([id number])[facility] ([facility])[address] [place] [address] Potassium (BldA) [Moles/Vol] 4.9 mmol/L Normal 3.5-5.3 [facility] Comment on above: Performed By: #### 9 3685-6 ####JANETH Galo ([id number])[facility] ([facility])[address] [place] [address] Sodium (BldA) [Moles/Vol] 136 mmol/L Normal 136-145 [facility] Comment on above: Performed By: #### 9 3685-6 ####JANETH Galo ([id number])[facility] ([facility])[address] [place] [address] Anion gap 4 (BldA) [Moles/Vol] 10 [facility] Base excess Calc (Bld) [Moles/Vol] -1.7000 mmol/L -2.0 - 3.0 mmol/L [facility] Calcium.ionized (BldA) [Moles/Vol] 1.12 mmol/L 1.10 - 1.33 mmol/L [facility] Chloride (BldA) [Moles/Vol] 107 mmol/L 98 - 107 mmol/L [facility] CO2 (Bld) [Partial pressure] 37 mm[Hg] Low [facility] Glucose [Mass/Vol] 119 mg/dL High 74 - 99 mg/dL [facility] HCO3 (Bld) [Moles/Vol] 22.9 mmol/L 22.0 - 26.0 mmol/L [facility] Hematocrit Est (Bld) [Volume fraction] 27 % Low 36.0 - 46.0 % [facility] Hemoglobin (Bld) [Mass/Vol] 9 g/dL Low 12.0 - 16.0 g/dL [facility] Inhaled oxygen concentration 42 % [facility] Interpretation and review of laboratory results Abnormal [facility] Lactate (BldA) [Moles/Vol] 1.3 mmol/L 0.4 - 2.0 mmol/L [facility] Oxygen (Bld) [Partial pressure] 83 mm[Hg] Low [facility] Oxyhemoglobin (BldA) [Mass fraction] 94.9 % 94.0 - 98.0 % [facility] pH (Bld) 7.4 [pH] 7.38 - 7.42 pH [facility] Potassium (BldA) [Moles/Vol] 5.7 mmol/L High 3.5 - 5.3 mmol/L [facility] Sodium (BldA) [Moles/Vol] 134 mmol/L Low 136 - 145 mmol/L [facility] Anion gap 4 (BldA) [Moles/Vol] 10 mmo/L Normal 10-25 [facility] Comment on above: Performed By: #### 9 3685-6 ####JANETH Galo ([id number])[facility] ([facility])[id number] [place] [address] Base excess Calc (Bld) [Moles/Vol] -1.7000 mmol/L Normal -2.0-3.0 [facility] Comment on above: Performed By: #### 9 3685-6 ####JANETH Galo ([id number])[facility] ([facility])[id number] [place] [address] Calcium.ionized (BldA) [Moles/Vol] 1.12 mmol/L Normal 1.10-1.33 [facility] Comment on above: Performed By: #### 9 3685-6 ####JANETH Galo ([id number])[facility] ([facility])[address] [place] [address]478 Chloride (BldA) [Moles/Vol] 107 mmol/L Normal 98-107 [facility] Comment on above: Performed By: #### 9 3685-6 ####JANETH Galo ([id number])[facility] ([facility])[address] [place] [address]80 CO2 (Bld) [Partial pressure] 37 mm Hg Low 38-42 [facility] Comment on above: Performed By: #### 9 3685-6 ####JANETH Galo ([id number])[facility] ([facility])[address] [place] [address] Glucose [Mass/Vol] 119 mg/dL High 74-99 [facility] Comment on above: Performed By: #### 9 3685-6 ####JANETH Galo ([id number])[facility] ([facility])[address] [place] [address] HCO3 (Bld) [Moles/Vol] 22.9 mmol/L Normal 22.0-26.0 [facility] Comment on above: Performed By: #### 9 3685-6 ####JANETH Galo ([id number])[facility] ([facility])[address] [place] [address]34 Hematocrit Est (Bld) [Volume fraction] 27.0 % Low 36.0-46.0 [facility] Comment on above: Performed By: #### 9 3685-6 ####JANETH Galo ([id number])[facility] ([facility])[address] [place] [address]43 Hemoglobin (Bld) [Mass/Vol] 9.0 g/dL Low 12.0-16.0 [facility] Comment on above: Performed By: #### 9 3685-6 ####JANETH Galo ([id number])[facility] ([facility])[address] [place] [address] Inhaled oxygen concentration 42 % Normal [facility] Comment on above: Performed By: #### 9 3685-6 ####JANETH Galo ([id number])[facility] ([facility])[address] [place] [address] Lactate (BldA) [Moles/Vol] 1.3 mmol/L Normal 0.4-2.0 [facility] Comment on above: Performed By: #### 9 3685-6 ####JANETH Galo ([id number])[facility] ([facility])[address] [place] [address] Oxygen (Bld) [Partial pressure] 83 mm Hg Low 85-95 [facility] Comment on above: Performed By: #### 9 3685-6 ####JANETH Galo ([id number])[facility] ([facility])[id number] [place] [address] 14242 Oxyhemoglobin (BldA) [Mass fraction] 94.9 % Normal 94.0-98.0 [facility] Comment on above: Performed By: #### 9 3685-6 ####JANETH Galo ([id number])[facility] ([facility])[address] [place] [address] 06691 pH (Bld) 7.40 [pH] Normal 7.38-7.42 [facility] Comment on above: Performed By: #### 9 3685-6 ####JANETH Galo ([id number])[facility] ([facility])[address] [place] [address] Potassium (BldA) [Moles/Vol] 5.7 mmol/L High 3.5-5.3 [facility] Comment on above: Performed By: #### 9 3685-6 ####JANETH Galo ([id number])[facility] ([facility])[address] [place] [address]80 Sodium (BldA) [Moles/Vol] 134 mmol/L Low 136-145 [facility] Comment on above: Performed By: #### 9 3685-6 ####JANETH Galo ([id number])[facility] ([facility])[address] [place] [address] 49178 Anion gap 4 (BldA) [Moles/Vol] 4 Low [facility] Base excess Calc (Bld) [Moles/Vol] -2.1000 mmol/L Low -2.0 - 3.0 mmol/L [facility] Calcium.ionized (BldA) [Moles/Vol] 1.07 mmol/L Low 1.10 - 1.33 mmol/L [facility] Chloride (BldA) [Moles/Vol] 109 mmol/L High 98 - 107 mmol/L [facility] CO2 (Bld) [Partial pressure] 35 mm[Hg] Low [facility] Glucose [Mass/Vol] 142 mg/dL High 74 - 99 mg/dL [facility] HCO3 (Bld) [Moles/Vol] 22.2 mmol/L 22.0 - 26.0 mmol/L [facility] Hematocrit Est (Bld) [Volume fraction] 25 % Low 36.0 - 46.0 % [facility] Hemoglobin (Bld) [Mass/Vol] 8.3 g/dL Low 12.0 - 16.0 g/dL [facility] Inhaled oxygen concentration 42 % [facility] Interpretation and review of laboratory results Abnormal [facility] Lactate (BldA) [Moles/Vol] 1.6 mmol/L 0.4 - 2.0 mmol/L [facility] Oxygen (Bld) [Partial pressure] 132 mm[Hg] High [facility] Oxyhemoglobin (BldA) [Mass fraction] 95.3 % 94.0 - 98.0 % [facility] pH (Bld) 7.41 [pH] 7.38 - 7.42 pH [facility] Potassium (BldA) [Moles/Vol] 5.9 mmol/L High 3.5 - 5.3 mmol/L [facility] Sodium (BldA) [Moles/Vol] 129 mmol/L Low 136 - 145 mmol/L [facility] Anion gap 4 (BldA) [Moles/Vol] 4 mmo/L Low 10-25 [facility] Comment on above: Performed By: #### 9 3685-6 ####JANETH Galo ([id number])[facility] ([facility])[id number] [place] [address]3364 Base excess Calc (Bld) [Moles/Vol] -2.1000 mmol/L Low -2.0-3.0 [facility] Comment on above: Performed By: #### 9 3685-6 ####JANETH Galo ([id number])[facility] ([facility])[id number] [place] [address] 00001 Calcium.ionized (BldA) [Moles/Vol] 1.07 mmol/L Low 1.10-1.33 [facility] Comment on above: Performed By: #### 9 3685-6 ####JANETH Galo ([id number])[facility] ([facility])[address] [place] [address] Chloride (BldA) [Moles/Vol] 109 mmol/L High 98-107 [facility] Comment on above: Performed By: #### 9 3685-6 ####JANETH Galo ([id number])[facility] ([facility])[address] [place] [address] 36410 CO2 (Bld) [Partial pressure] 35 mm Hg Low 38-42 [facility] Comment on above: Performed By: #### 9 3685-6 ####JANETH Galo ([id number])[facility] ([facility])[address] [place] [address] 66405 Glucose [Mass/Vol] 142 mg/dL High 74-99 [facility] Comment on above: Performed By: #### 9 3685-6 ####JANETH Galo ([id number])[facility] ([facility])[address] [place] [address] HCO3 (Bld) [Moles/Vol] 22.2 mmol/L Normal 22.0-26.0 [facility] Comment on above: Performed By: #### 9 8795-6 ####JANETH Galo ([id number])[facility] ([facility])[address] [place] [address] 19396 Hematocrit Est (Bld) [Volume fraction] 25.0 % Low 36.0-46.0 [facility] Comment on above: Performed By: #### 9 1015-6 ####JANETH Galo ([id number])[facility] ([facility])[address] [place] [address] 58233 Hemoglobin (Bld) [Mass/Vol] 8.3 g/dL Low 12.0-16.0 [facility] Comment on above: Performed By: #### 9 3685-6 ####JANETH Galo ([id number])[facility] ([facility])[address] [place] [address] Inhaled oxygen concentration 42 % Normal [facility] Comment on above: Performed By: #### 9 3685-6 ####JANETH Galo ([id number])[facility] ([facility])[address] [place] [address] Lactate (BldA) [Moles/Vol] 1.6 mmol/L Normal 0.4-2.0 [facility] Comment on above: Performed By: #### 9 3685-6 ####JANETH Galo ([id number])[facility] ([facility])[address] [place] [address] Oxygen (Bld) [Partial pressure] 132 mm Hg High 85-95 [facility] Comment on above: Performed By: #### 9 3685-6 ####JANETH Galo ([id number])[facility] ([facility])[address] [place] [address] Oxyhemoglobin (BldA) [Mass fraction] 95.3 % Normal 94.0-98.0 [facility] Comment on above: Performed By: #### 9 3685-6 ####JANETH Galo ([id number])[facility] ([facility])[address] [place] [address] pH (Bld) 7.41 [pH] Normal 7.38-7.42 [facility] Comment on above: Performed By: #### 9 3685-6 ####JANETH Galo ([id number])[facility] ([facility])[address]42 [place] [address] Potassium (BldA) [Moles/Vol] 5.9 mmol/L High 3.5-5.3 [facility] Comment on above: Performed By: #### 9 3685-6 ####JANETH Galo ([id number])[facility] ([facility])[address]642 [place] [address] Sodium (BldA) [Moles/Vol] 129 mmol/L Low 136-145 [facility] Comment on above: Performed By: #### 9 3685-6 ####JANETH Galo ([id number])[facility] ([facility])[address]336 [place] [address] CO2 (Bld) [Partial pressure] 38 mm Hg Normal 38-42 [facility] Comment on above: Performed By: #### 9 3685-6 ####JANETH Galo ([id number])[facility] ([facility])[address] [place] [address] Hematocrit Est (Bld) [Volume fraction] 20.0 % Low 36.0-46.0 [facility] Comment on above: Performed By: #### 9 3685-6 ####JANETH Galo ([id number])[facility] ([facility])[address]958 [place] [address] Oxygen (Bld) [Partial pressure] 122 mm Hg High 85-95 [facility] Comment on above: Performed By: #### 9 3685-6 ####JANETH Galo ([id number])[facility] ([facility])[address]13 [place] [address] Anion gap 4 (BldA) [Moles/Vol] 12 [facility] Base excess Calc (Bld) [Moles/Vol] -1.9000 mmol/L -2.0 - 3.0 mmol/L [facility] Calcium.ionized (BldA) [Moles/Vol] 1.16 mmol/L 1.10 - 1.33 mmol/L [facility] Chloride (BldA) [Moles/Vol] 104 mmol/L 98 - 107 mmol/L [facility] CO2 (Bld) [Partial pressure] 39 mm[Hg] [facility] Glucose [Mass/Vol] 136 mg/dL High 74 - 99 mg/dL [facility] HCO3 (Bld) [Moles/Vol] 23.1 mmol/L 22.0 - 26.0 mmol/L [facility] Hematocrit Est (Bld) [Volume fraction] 17 % Low 36.0 - 46.0 % [facility] Hemoglobin (Bld) [Mass/Vol] 5.6 g/dL Critically low 12.0 - 16.0 g/dL [facility] Inhaled oxygen concentration 42 % [facility] Interpretation and review of laboratory results Abnormal [facility] Lactate (BldA) [Moles/Vol] 1.4 mmol/L 0.4 - 2.0 mmol/L [facility] Oxygen (Bld) [Partial pressure] 132 mm[Hg] High [facility] Oxyhemoglobin (BldA) [Mass fraction] 95.5 % 94.0 - 98.0 % [facility] pH (Bld) 7.38 [pH] Normal 7.38-7.42 [facility] Comment on above: Performed By: #### 9 3685-6 ####JANETH Galo ([id number])[facility] ([facility])[address] [place] [address] Potassium (BldA) [Moles/Vol] 5.8 mmol/L High 3.5 - 5.3 mmol/L [facility] Sodium (BldA) [Moles/Vol] 133 mmol/L Low 136-145 [facility] Comment on above: Performed By: #### 9 3685-6 ####JANETH Galo ([id number])[facility] ([facility])[address] [place], [place] [id number] [facility] Anion gap 4 (BldA) [Moles/Vol] 12 mmo/L Normal 10-25 [facility] Comment on above: Performed By: #### 9 3685-6 ####JANETH Galo ([id number])[facility] ([facility])[id number] [place], [place] [address] Base excess Calc (Bld) [Moles/Vol] -1.9000 mmol/L Normal -2.0-3.0 [facility] Comment on above: Performed By: #### 9 3685-6 ####JANETH Galo ([id number])[facility] ([facility])[address] [place] [address] Calcium.ionized (BldA) [Moles/Vol] 1.16 mmol/L Normal 1.10-1.33 [facility] Comment on above: Performed By: #### 9 3685-6 ####JANETH Galo ([id number])[facility] ([facility])[address] [place] [address] Chloride (BldA) [Moles/Vol] 104 mmol/L Normal 98-107 [facility] Comment on above: Performed By: #### 9 3685-6 ####JANETH Galo ([id number])[facility] ([facility])[address] [place] [address] CO2 (Bld) [Partial pressure] 39 mm Hg Normal 38-42 [facility] Comment on above: Performed By: #### 9 3685-6 ####JANETH Galo ([id number])[facility] ([facility])[address]671 [place] [address] Glucose [Mass/Vol] 136 mg/dL High 74-99 [facility] Comment on above: Performed By: #### 9 9355-6 ####JANETH Galo ([id number])[facility] ([facility])[address]257 [place] [address] HCO3 (Bld) [Moles/Vol] 23.1 mmol/L Normal 22.0-26.0 [facility] Comment on above: Performed By: #### 9 3685-6 ####JANETH Galo ([id number])[facility] ([facility])[address] [place] [address] Hematocrit Est (Bld) [Volume fraction] 17.0 % Low 36.0-46.0 [facility] Comment on above: Performed By: #### 9 3685-6 ####JANETH Galo ([id number])[facility] ([facility])[address] [place] [address] Hemoglobin (Bld) [Mass/Vol] 5.6 g/dL Critically low 12.0-16.0 [facility] Comment on above: Performed By: #### 9 3685-6 ####JANETH Galo ([id number])[facility] ([facility])[id number] [place] [id number] Inhaled oxygen concentration 42 % Normal [facility] Comment on above: Performed By: #### 9 3685-6 ####JANETH Galo ([id number])[facility] ([facility])[id number] [place] [id number] Lactate (BldA) [Moles/Vol] 1.4 mmol/L Normal 0.4-2.0 [facility] Comment on above: Performed By: #### 9 4915-6 ####JANETH Galo ([id number])[facility] ([facility])[address] [place] [address] Oxygen (Bld) [Partial pressure] 132 mm Hg High 85-95 [facility] Comment on above: Performed By: #### 9 1205-6 ####JANETH Galo ([id number])[facility] ([facility])[address] [place] [address] Oxyhemoglobin (BldA) [Mass fraction] 95.5 % Normal 94.0-98.0 [facility] Comment on above: Performed By: #### 9 3685-6 ####JANETH Galo ([id number])[facility] ([facility])[id number] [place] [address] 84454 pH (Bld) 7.38 [pH] Normal 7.38-7.42 [facility] Comment on above: Performed By: #### 9 3685-6 ####JANETH GRAFF L ([id number])[facility] ([facility])[address] [place] [address] 30311 Potassium (BldA) [Moles/Vol] 5.8 mmol/L High 3.5-5.3 [facility] Comment on above: Performed By: #### 9 7235-6 ####JANETH Galo ([id number])[facility] ([facility])[address] [place] [address] Sodium (BldA) [Moles/Vol] 133 mmol/L Low 136-145 [facility] Comment on above: Performed By: #### 9 3685-6 ####JANETH Galo ([id number])[facility] ([facility])[address] [place] [address] Anion gap 4 (BldA) [Moles/Vol] 10 [facility] Base excess Calc (Bld) [Moles/Vol] -3.6000 mmol/L Low -2.0 - 3.0 mmol/L [facility] Calcium.ionized (BldA) [Moles/Vol] 1.19 mmol/L 1.10 - 1.33 mmol/L [facility] Chloride (BldA) [Moles/Vol] 103 mmol/L 98 - 107 mmol/L [facility] CO2 (Bld) [Partial pressure] 43 mm[Hg] High [facility] Glucose [Mass/Vol] 184 mg/dL High 74 - 99 mg/dL [facility] HCO3 (Bld) [Moles/Vol] 22.2 mmol/L 22.0 - 26.0 mmol/L [facility] Hematocrit Est (Bld) [Volume fraction] 21 % Low 36.0 - 46.0 % [facility] Hemoglobin (Bld) [Mass/Vol] 7 g/dL Low 12.0 - 16.0 g/dL [facility] Inhaled oxygen concentration 42 % [facility] Interpretation and review of laboratory results Abnormal [facility] Lactate (BldA) [Moles/Vol] 1.3 mmol/L Normal 0.4-2.0 [facility] Comment on above: Performed By: #### 9 3685-6 ####JANETH Galo ([id number])[facility] ([facility])[address] [place] [address] Oxygen (Bld) [Partial pressure] 141 mm[Hg] High [facility] Oxyhemoglobin (BldA) [Mass fraction] 95 % 94.0 - 98.0 % [facility] pH (Bld) 7.32 [pH] Low 7.38 - 7.42 pH [facility] Potassium (BldA) [Moles/Vol] 5.7 mmol/L High 3.5 - 5.3 mmol/L [facility] Sodium (BldA) [Moles/Vol] 129 mmol/L Low 136 - 145 mmol/L [facility] Anion gap 4 (BldA) [Moles/Vol] 13 [facility] Base excess Calc (Bld) [Moles/Vol] -3.6000 mmol/L Low -2.0 - 3.0 mmol/L [facility] Calcium.ionized (BldA) [Moles/Vol] 1.2 mmol/L 1.10 - 1.33 mmol/L [facility] Chloride (BldA) [Moles/Vol] 101 mmol/L 98 - 107 mmol/L [facility] CO2 (Bld) [Partial pressure] 46 mm[Hg] High [facility] Glucose [Mass/Vol] 158 mg/dL High 74 - 99 mg/dL [facility] HCO3 (Bld) [Moles/Vol] 22.6 mmol/L 22.0 - 26.0 mmol/L [facility] Hematocrit Est (Bld) [Volume fraction] 23 % Low 36.0 - 46.0 % [facility] Hemoglobin (Bld) [Mass/Vol] 7.5 g/dL Low 12.0 - 16.0 g/dL [facility] Inhaled oxygen concentration 42 % Normal [facility] Comment on above: Performed By: #### 9 3685-6 ####JANETH Galo ([id number])[facility] ([facility])[address] [place] [address] Interpretation and review of laboratory results Abnormal [facility] Lactate (BldA) [Moles/Vol] 1.6 mmol/L 0.4 - 2.0 mmol/L [facility] Oxygen (Bld) [Partial pressure] 109 mm[Hg] High [facility] Oxyhemoglobin (BldA) [Mass fraction] 94.7 % 94.0 - 98.0 % [facility] pH (Bld) 7.3 [pH] Low 7.38 - 7.42 pH [facility] Potassium (BldA) [Moles/Vol] 6.2 mmol/L Critically high 3.5 - 5.3 mmol/L [facility] Sodium (BldA) [Moles/Vol] 130 mmol/L Low 136 - 145 mmol/L [facility] Anion gap 4 (BldA) [Moles/Vol] 10 mmo/L Normal 10-25 [facility] Comment on above: Performed By: #### 9 3685-6 ####JANETH Galo ([id number])[facility] ([facility])[id number] [place] [address]3849 Base excess Calc (Bld) [Moles/Vol] -3.6000 mmol/L Low -2.0-3.0 [facility] Comment on above: Performed By: #### 9 3685-6 ####JANETH Galo ([id number])[facility] ([facility])[id number] [place] [address] 27396 Calcium.ionized (BldA) [Moles/Vol] 1.19 mmol/L Normal 1.10-1.33 [facility] Comment on above: Performed By: #### 9 3685-6 ####JANETH Galo ([id number])[facility] ([facility])[address] [place] [address] 21817 Chloride (BldA) [Moles/Vol] 103 mmol/L Normal 98-107 [facility] Comment on above: Performed By: #### 9 3685-6 ####JANETH Galo ([id number])[facility] ([facility])[address] [place] [address] CO2 (Bld) [Partial pressure] 43 mm Hg High 38-42 [facility] Comment on above: Performed By: #### 9 3685-6 ####JANETH Galo ([id number])[facility] ([facility])[id number] [place] [address] 47210 Glucose [Mass/Vol] 184 mg/dL High 74-99 [facility] Comment on above: Performed By: #### 9 3685-6 ####JANETH Galo ([id number])[facility] ([facility])[id number] [place] [address] 98062 HCO3 (Bld) [Moles/Vol] 22.2 mmol/L Normal 22.0-26.0 [facility] Comment on above: Performed By: #### 9 3685-6 ####JANETH Galo ([id number])[facility] ([facility])[address] [place] [address] 10134 Hematocrit Est (Bld) [Volume fraction] 21.0 % Low 36.0-46.0 [facility] Comment on above: Performed By: #### 9 3685-6 ####JANETH Galo ([id number])[facility] ([facility])[address] [place] [address] 41890 Hemoglobin (Bld) [Mass/Vol] 7.0 g/dL Low 12.0-16.0 [facility] Comment on above: Performed By: #### 9 3685-6 ####JANETH Galo ([id number])[facility] ([facility])[address] [place] [address] 78284 Inhaled oxygen concentration 42 % Normal [facility] Comment on above: Performed By: #### 9 3685-6 ####JANETH Galo ([id number])[facility] ([facility])[id number] [place] [address] 05771 Lactate (BldA) [Moles/Vol] 1.3 mmol/L Normal 0.4-2.0 [facility] Comment on above: Performed By: #### 9 3685-6 ####JANETH Galo ([id number])[facility] ([facility])[id number] [place] [address] 61539 Oxygen (Bld) [Partial pressure] 141 mm Hg High 85-95 [facility] Comment on above: Performed By: #### 9 3685-6 ####JANETH Galo ([id number])[facility] ([facility])[address] [place] [address] 44437 Oxyhemoglobin (BldA) [Mass fraction] 95.0 % Normal 94.0-98.0 [facility] Comment on above: Performed By: #### 9 3685-6 ####JANETH Galo ([id number])[facility] ([facility])[address] [place] [address] 55932 pH (Bld) 7.32 [pH] Low 7.38-7.42 [facility] Comment on above: Performed By: #### 9 3685-6 ####JANETH Galo ([id number])[facility] ([facility])[address] [place] [address] 50404 Potassium (BldA) [Moles/Vol] 5.7 mmol/L High 3.5-5.3 [facility] Comment on above: Performed By: #### 9 3685-6 ####JANETH Galo ([id number])[facility] ([facility])[address] [place] [address] 91435 Sodium (BldA) [Moles/Vol] 129 mmol/L Low 136-145 [facility] Comment on above: Performed By: #### 9 3685-6 ####JANETH Galo ([id number])[facility] ([facility])[address] [place] [address] 32875 Anion gap 4 (BldA) [Moles/Vol] 13 mmo/L Normal 10-25 [facility] Comment on above: Performed By: #### 9 3685-6 ####JANETH Galo ([id number])[facility] ([facility])[id number] [place] [address] 93968 Base excess Calc (Bld) [Moles/Vol] -3.6000 mmol/L Low -2.0-3.0 [facility] Comment on above: Performed By: #### 9 3685-6 ####JANETH Galo ([id number])[facility] ([facility])[address] [place] [address] 49126 Calcium.ionized (BldA) [Moles/Vol] 1.20 mmol/L Normal 1.10-1.33 [facility] Comment on above: Performed By: #### 9 3685-6 ####JANETH Galo ([id number])[facility] ([facility])[address] [place] [address] Chloride (BldA) [Moles/Vol] 101 mmol/L Normal 98-107 [facility] Comment on above: Performed By: #### 9 3685-6 ####JANETH Galo ([id number])[facility] ([facility])[address] [place] [address] 20705 CO2 (Bld) [Partial pressure] 46 mm Hg High 38-42 [facility] Comment on above: Performed By: #### 9 3685-6 ####JANETH Galo ([id number])[facility] ([facility])[address] [place] [address] 81788 Glucose [Mass/Vol] 158 mg/dL High 74-99 [facility] Comment on above: Performed By: #### 9 3685-6 ####JANETH Galo ([id number])[facility] ([facility])[address] [place] [address] HCO3 (Bld) [Moles/Vol] 22.6 mmol/L Normal 22.0-26.0 [facility] Comment on above: Performed By: #### 9 3685-6 ####JANETH Galo ([id number])[facility] ([facility])[address] [place] [address] Hematocrit Est (Bld) [Volume fraction] 23.0 % Low 36.0-46.0 [facility] Comment on above: Performed By: #### 9 3685-6 ####JANETH Galo ([id number])[facility] ([facility])[address] [place] [address] 41879 Hemoglobin (Bld) [Mass/Vol] 7.5 g/dL Low 12.0-16.0 [facility] Comment on above: Performed By: #### 9 3685-6 ####JANETH Galo ([id number])[facility] ([facility])[address] [place] [address] Inhaled oxygen concentration 42 % Normal [facility] Comment on above: Performed By: #### 9 3685-6 ####JANETH Galo ([id number])[facility] ([facility])[address] [place] [address] Lactate (BldA) [Moles/Vol] 1.6 mmol/L Normal 0.4-2.0 [facility] Comment on above: Performed By: #### 9 3685-6 ####JANETH Galo ([id number])[facility] ([facility])[address] [place] [address] Oxygen (Bld) [Partial pressure] 109 mm Hg High 85-95 [facility] Comment on above: Performed By: #### 9 3685-6 ####JANETH Galo ([id number])[facility] ([facility])[address] [place] [address] Oxyhemoglobin (BldA) [Mass fraction] 94.7 % Normal 94.0-98.0 [facility] Comment on above: Performed By: #### 9 5095-6 ####JANETH Galo ([id number])[facility] ([facility])[address] [place] [address] pH (Bld) 7.30 [pH] Low 7.38-7.42 [facility] Comment on above: Performed By: #### 9 9795-6 ####JANETH Galo ([id number])[facility] ([facility])[address] [place] [address] Potassium (BldA) [Moles/Vol] 6.2 mmol/L Critically high 3.5-5.3 [facility] Comment on above: Performed By: #### 9 5885-6 ####JANETH Galo ([id number])[facility] ([facility])[address] [place] [address] Sodium (BldA) [Moles/Vol] 130 mmol/L Low 136-145 [facility] Comment on above: Performed By: #### 9 3685-6 ####JANETH Galo ([id number])[facility] ([facility])[id number] [place] [address] 83960 Gas and Carbon monoxide and Electrolytes panel (BldA)Ordered By: Jin Barajas on 03-25-2024 Anion gap 4 (BldA) [Moles/Vol] 12 [facility] Base excess Calc (Bld) [Moles/Vol] -2.4000 mmol/L Low -2.0-3.0 [facility] Comment on above: Performed By: #### 9 3685-6 ####JANETH Galo ([id number])[facility] ([facility])[id number] [place] [address] 22308 Calcium.ionized (BldA) [Moles/Vol] 1.21 mmol/L Normal 1.10-1.33 [facility] Comment on above: Performed By: #### 9 3685-6 ####JANETH Galo ([id number])[facility] ([facility])[id number] [place] [address] 34588 Chloride (BldA) [Moles/Vol] 105 mmol/L Normal 98-107 [facility] Comment on above: Performed By: #### 9 3685-6 ####JANETH Galo ([id number])[facility] ([facility])[address] [place] [address] 16652 CO2 (Bld) [Partial pressure] 38 mm[Hg] [facility] Glucose [Mass/Vol] 134 mg/dL High 74-99 [facility] Comment on above: Performed By: #### 9 3685-6 ####JANETH Galo ([id number])[facility] ([facility])[id number] [place] [address] 68210 HCO3 (Bld) [Moles/Vol] 22.5 mmol/L Normal 22.0-26.0 [facility] Comment on above: Performed By: #### 9 3685-6 ####JANETH Galo ([id number])[facility] ([facility])[address] [place] [address] 67600 Hematocrit Est (Bld) [Volume fraction] 20 % Low 36.0 - 46.0 % [facility] Hemoglobin (Bld) [Mass/Vol] 6.5 g/dL Critically low 12.0-16.0 [facility] Comment on above: Performed By: #### 9 3685-6 ####JANETH Galo ([id number])[facility] ([facility])[address] [place] [address] 44904 Inhaled oxygen concentration 42 % [facility] Interpretation and review of laboratory results Abnormal [facility] Lactate (BldA) [Moles/Vol] 1.3 mmol/L 0.4 - 2.0 mmol/L [facility] Oxygen (Bld) [Partial pressure] 122 mm[Hg] High [facility] Oxyhemoglobin (BldA) [Mass fraction] 95.6 % Normal 94.0-98.0 [facility] Comment on above: Performed By: #### 9 3685-6 ####JANETH Galo ([id number])[facility] ([facility])[address] [place] [address] 55797 pH (Bld) 7.38 [pH] 7.38 - 7.42 pH [facility] Potassium (BldA) [Moles/Vol] 6.3 mmol/L Critically high 3.5-5.3 [facility] Comment on above: Performed By: #### 9 3685-6 ####JANETH Galo ([id number])[facility] ([facility])[address] [place] [address] 37531 Sodium (BldA) [Moles/Vol] 133 mmol/L Low 136 - 145 mmol/L [facility] HCG ( test) Ql (U)o n 03-25-2024 Interpretation and review of laboratory results Normal [facility] Work Phone: Preg Test, Ur Negative Negative [facility] Work Phone: [facility] Work Phone: Magnesiumon 03-25-2024 Magnesium [Mass/Vol] 2.72 mg/dL High 1.60 - 2.40 mg/dL [facility] Magnesium [Mass/Vol] 2.72 mg/dL High 1.60-2.40 [facility] Comment on above: Performed By: #### 1 9123-9 ####JANETH Galo ([id number])[facility] ([facility])[address] [place], [place] [address] 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 Org specific cx Nom (Unsp spec) [facility] Comment on above: Performed By: #### 5 43-9 ####JANETH Galo ([id number])[facility] ([facility])[address] [place] [address] No Panel Informationon 03-25 Interpretation and review of laboratory results Abnormal [facility] Phosphateon 03-25-2024 Phosphate [Mass/Vol] 4.0 mg/dL Normal 2.5-4.9 [facility] Comment on above: Result Comment: The performance characteristics of phosphorus testing in heparinized plasma have been validated by the individual laboratory site where testing is performed. Testing on heparinized plasma is not approved by the FDA; however, such approval is not necessary. Performed By: #### 2 777-1 ####JANETH Galo ([id number])[facility] ([facility])[address] [place], [place] [address] Phosphate [Mass/Vol]on 03-25 Interpretation and review of laboratory results Normal [facility] Phosphoruson 03-25-2024 Phosphate [Mass/Vol] 4 mg/dL 2.5 - 4 .9 mg/dL [facility] Comment on above: The performance lucia acteristics of phosphorus testing in heparinized plasma have been validated by the individual laboratory site where testing is performed. Testing on heparinized plasma is not approved by the FDA; however, such approval is not necessary. Prepare RBC: 1 Unitson 03-25 Blood Expiration Date 04/23/2024 11:59:00 PM EST [facility] Dispense Status TR [facility] PRODUCT BLOOD TYPE [address] [facility] PRODUCT CODE [id number] [facility] Unit ABO A [facility] Unit Number [id number] [facility] Unit RH Positive [facility] UNIT VOLUME 350 [facility] XM INTEP COMP [facility] Renal function 2000 panelon 03-25-2024 Albumin BCP dye [Mass/Vol] 4 g/dL 3.4 - 5.0 g/dL [facility] Anion gap [Moles/Vol] 14 mmol/L 10 - 2 0 mmol/L [facility] Calcium [Mass/Vol] 8.7 mg/dL 8.6 - 10. 6 mg/dL [facility] Chloride [Moles/Vol] 104 mmol/L 98 - 10 7 mmol/L [facility] CO2 [Moles/Vol] 24 mmol/L 21 - 32 mmol/L [facility] Creatinine [Mass/Vol] 1.67 mg/dL High 0.50 - 1.05 mg/dL [facility] GFR/1.73 sq M.predicted among non-blacks MDRD (S/P/Bld) [Vol rate/Area] 37 mL/min/{1.73_m2} Low - PINF [facility] Comment on above: Calculations of bill mated GFR are performed using the 2020 CKD-EPI Study Refit equation without the race variable for the IDMS-Traceable creatinine methods. https://jasn.asnjournals.org/content//ASN.939994 6396 Glucose [Mass/Vol] 128 mg/dL High 74 - 99 mg/dL [facility] Interpretation and review of laboratory results Abnormal [facility] Phosphate [Mass/Vol] 3.4 mg/dL 2.5 - 4 .9 mg/dL [facility] Comment on above: The performance lucia acteristics of phosphorus testing in heparinized plasma have been validated by the individual laboratory site where testing is performed. Testing on heparinized plasma is not approved by the FDA; however, such approval is not necessary. Potassium [Moles/Vol] 5.7 mmol/L High 3.5 - 5.3 mmol/L [facility] Sodium [Moles/Vol] 136 mmol/L 136 - 145 mmol/L [facility] Urea nitrogen [Mass/Vol] 35 mg/dL High 6 - 23 mg/dL [facility] Albumin BCP dye [Mass/Vol] 4.0 g/dL Normal 3.4-5.0 [facility] Comment on above: Performed By: #### 2 4362-6 ####JANETH Galo ([id number])[facility] ([facility])[address] [place] [address] Anion gap [Moles/Vol] 14 mmol/L Normal 10-20 [facility] Comment on above: Performed By: #### 2 4362-6 ####JANETH Galo ([id number])[facility] ([facility])[id number] [place] [address] 57943 Calcium [Mass/Vol] 8.7 mg/dL Normal 8.6-10.6 [facility] Comment on above: Performed By: #### 2 4362-6 ####JANETH Galo ([id number])[facility] ([facility])[address] [place] [address] Chloride [Moles/Vol] 104 mmol/L Normal 98-107 [facility] Comment on above: Performed By: #### 2 4362-6 ####JANETH Galo ([id number])[facility] ([facility])[address] [place] [address] CO2 [Moles/Vol] 24 mmol/L Normal 21-32 [facility] Comment on above: Performed By: #### 2 4362-6 ####JANETH Galo ([id number])[facility] ([facility])[address] [place] [address] Creatinine [Mass/Vol] 1.67 mg/dL High 0.50-1.05 [facility] Comment on above: Performed By: #### 2 4362-6 ####JANETH Galo ([id number])[facility] ([facility])[address] [place] [address] Glomerular filtration rate/1.73 sq M.predicted 37 mL/min/1.73m*2 Low >60 [facility] Comment on above: Result Comment: Calc ulations of estimated GFR are performed using the 2020 CKD-EPI Study Refit equation without the race variable for the IDMS-Traceable creatinine methods.https://jasn.asnjournals.org/content/early// N.9794436186 Performed By: #### 2 4362-6 ####JANETH Galo ([id number])[facility] ([facility])[address] [place] [address] Glucose [Mass/Vol] 128 mg/dL High 74-99 [facility] Comment on above: Performed By: #### 2 4362-6 ####JANETH Galo ([id number])[facility] ([facility])[address] [place] [address] Phosphate [Mass/Vol] 3.4 mg/dL Normal 2.5-4.9 [facility] Comment on above: Result Comment: The performance characteristics of phosphorus testing in heparinized plasma have been validated by the individual laboratory site where testing is performed. Testing on heparinized plasma is not approved by the FDA; however, such approval is not necessary. Performed By: #### 2 4362-6 ####JANETH Galo ([id number])[facility] ([facility])[address] [place] [address] Potassium [Moles/Vol] 5.7 mmol/L High 3.5-5.3 [facility] Comment on above: Performed By: #### 2 4362-6 ####JANETH Galo ([id number])[facility] ([facility])[address] [place] [address] Sodium [Moles/Vol] 136 mmol/L Normal 136-145 [facility] Comment on above: Performed By: #### 2 4362-6 ####JANETH Galo ([id number])[facility] ([facility])[address] [place] [address] Urea nitrogen [Mass/Vol] 35 mg/dL High 6-23 [facility] Comment on above: Performed By: #### 2 4362-6 ####JANETH Galo ([id number])[facility] ([facility])[address] [place] [address] XR CHEST 1 VIEWon 03-25-2024 XR CHEST 1 VIEW Normal [facility] XR Chest Single viewon 03-25 Radiology Study observation (narrative) [facility] Work Phone: Basic metabolic 2000 panelon 03-18-2024 Anion gap [Moles/Vol] 12 mmol/L 10 - 2 0 mmol/L [facility] Calcium [Mass/Vol] 9.4 mg/dL 8.6 - 10. 6 mg/dL [facility] Chloride [Moles/Vol] 100 mmol/L 98 - 10 7 mmol/L [facility] CO2 [Moles/Vol] 30 mmol/L 21 - 32 mmol/L [facility] Creatinine [Mass/Vol] 0.63 mg/dL 0.50 - 1.05 mg/dL [facility] eGFR - PINF [facility] Comment on above: Calculations of bill mated GFR are performed using the 2020 CKD-EPI Study Refit equation without the race variable for the IDMS-Traceable creatinine methods. https://jasn.asnjournals.org/content//ASN.012655 6086 Glucose [Mass/Vol] 88 mg/dL 74 - 99 mg/dL [facility] Interpretation and review of laboratory results Normal [facility] Potassium [Moles/Vol] 4.8 mmol/L 3.5 - 5.3 mmol/L [facility] Comment on above: MILD HEMOLYSIS DETEC ROSANNA. The result may be falsely elevated due to hemolysis or other interferents. Clinical correlation is recommended. Repeat testing may be considered. Sodium [Moles/Vol] 137 mmol/L 136 - 145 mmol/L [facility] Urea nitrogen [Mass/Vol] 13 mg/dL 6 - 23 mg/dL [facility] Anion gap [Moles/Vol] 12 mmol/L Normal 10-20 [facility] Comment on above: Performed By: #### 2 4321-2 ####JANETH Galo ([id number])[facility] ([facility])[address] [place] [address] Calcium [Mass/Vol] 9.4 mg/dL Normal 8.6-10.6 [facility] Comment on above: Performed By: #### 2 4321-2 ####JANETH GRAFF L ([id number])[facility] ([facility])[address] [place] [address] Chloride [Moles/Vol] 100 mmol/L Normal 98-107 [facility] Comment on above: Performed By: #### 2 4321-2 ####JANETH GRAFF L ([id number])[facility] ([facility])[address] [place] [address] CO2 [Moles/Vol] 30 mmol/L Normal 21-32 [facility] Comment on above: Performed By: #### 2 4321-2 ####JANETH GRAFF L ([id number])[facility] ([facility])[address] [place] [address] Creatinine [Mass/Vol] 0.63 mg/dL Normal 0.50-1.05 [facility] Comment on above: Performed By: #### 2 4321-2 ####JANETH GRAFF L ([id number])[facility] ([facility])[address] [place] [address] GFR/1.73 sq M.predicted MDRD (S/P/Bld) [Vol rate/Area] mL/min/{1.73_m2} Normal >60 [facility] Comment on above: Result Comment: Calc ulations of estimated GFR are performed using the 2020 CKD-EPI Study Refit equation without the race variable for the IDMS-Traceable creatinine methods.https://jasn.asnjournals.org/content/early// N.1262866767 Performed By: #### 2 4321-2 ####JANETH Galo ([id number])[facility] ([facility])[address] [place] [address] Glucose [Mass/Vol] 88 mg/dL Normal 74-99 [facility] Comment on above: Performed By: #### 2 4321-2 ####JANETH Galo ([id number])[facility] ([facility])[address] [place] [address] Potassium [Moles/Vol] 4.8 mmol/L Normal 3.5-5.3 [facility] Comment on above: Result Comment: MILD HEMOLYSIS DETECTED. The result may be falsely elevated due to hemolysis or other interferents. Clinical correlation is recommended. Repeat testing may be considered. Performed By: #### 2 4321-2 ####JANETH Galo ([id number])[facility] ([facility])[address] [place] [address] Sodium [Moles/Vol] 137 mmol/L Normal 136-145 [facility] Comment on above: Performed By: #### 2 4321-2 ####JANETH Galo ([id number])[facility] ([facility])[address] [place] [address] Urea nitrogen [Mass/Vol] 13 mg/dL Normal 6-23 [facility] Comment on above: Performed By: #### 2 4321-2 ####JANETH Galo ([id number])[facility] ([facility])[address] [place] [address] Basic metabolic 2000 panelon 03-17-2024 Anion gap [Moles/Vol] 12 mmol/L 10 - 2 0 mmol/L [facility] Calcium [Mass/Vol] 9.3 mg/dL 8.6 - 10. 6 mg/dL [facility] Chloride [Moles/Vol] 101 mmol/L 98 - 10 7 mmol/L [facility] CO2 [Moles/Vol] 29 mmol/L 21 - 32 mmol/L [facility] Creatinine [Mass/Vol] 0.63 mg/dL 0.50 - 1.05 mg/dL [facility] eGFR - PINF [facility] Comment on above: Calculations of bill mated GFR are performed using the 2020 CKD-EPI Study Refit equation without the race variable for the IDMS-Traceable creatinine methods. https://jasn.asnjournals.org/content//ASN.633682 0223 Glucose [Mass/Vol] 81 mg/dL 74 - 99 mg/dL [facility] Interpretation and review of laboratory results Normal [facility] Potassium [Moles/Vol] 4.7 mmol/L 3.5 - 5.3 mmol/L [facility] Sodium [Moles/Vol] 137 mmol/L 136 - 145 mmol/L [facility] Urea nitrogen [Mass/Vol] 12 mg/dL 6 - 23 mg/dL [facility] Anion gap [Moles/Vol] 12 mmol/L Normal 10-20 [facility] Comment on above: Performed By: #### 2 4321-2 ####JANETH Galo ([id number])[facility] ([facility])[address] [place] [address] Calcium [Mass/Vol] 9.3 mg/dL Normal 8.6-10.6 [facility] Comment on above: Performed By: #### 2 4321-2 ####JANETH Galo ([id number])[facility] ([facility])[address] [place] [address] Chloride [Moles/Vol] 101 mmol/L Normal 98-107 [facility] Comment on above: Performed By: #### 2 4321-2 ####JANETH Galo ([id number])[facility] ([facility])[address] [place] [address] CO2 [Moles/Vol] 29 mmol/L Normal 21-32 [facility] Comment on above: Performed By: #### 2 4321-2 ####JANETH Galo ([id number])[facility] ([facility])[address] [place] [address] Creatinine [Mass/Vol] 0.63 mg/dL Normal 0.50-1.05 [facility] Comment on above: Performed By: #### 2 4321-2 ####JANETH Galo ([id number])[facility] ([facility])[address] [place] [address] GFR/1.73 sq M.predicted MDRD (S/P/Bld) [Vol rate/Area] mL/min/{1.73_m2} Normal >60 [facility] Comment on above: Result Comment: Calc ulations of estimated GFR are performed using the 2020 CKD-EPI Study Refit equation without the race variable for the IDMS-Traceable creatinine methods.https://jasn.asnjournals.org/content/early/ N.6438908010 Performed By: #### 2 4321-2 ####JANETH Galo ([id number])[facility] ([facility])[address] [place] [address] Glucose [Mass/Vol] 81 mg/dL Normal 74-99 [facility] Comment on above: Performed By: #### 2 4321-2 ####JANETH Galo ([id number])[facility] ([facility])[address] [place] [address] Potassium [Moles/Vol] 4.7 mmol/L Normal 3.5-5.3 [facility] Comment on above: Performed By: #### 2 4321-2 ####JANETH GRAFF L ([id number])[facility] ([facility])[address] [place] [address] Sodium [Moles/Vol] 137 mmol/L Normal 136-145 [facility] Comment on above: Performed By: #### 2 4321-2 ####JANETH Galo ([id number])[facility] ([facility])[address] [place] [address] Urea nitrogen [Mass/Vol] 12 mg/dL Normal 6-23 [facility] Comment on above: Performed By: #### 2 4321-2 ####JANETH Galo ([id number])[facility] ([facility])[address] [place] [address] CBC panel Auto (Bld)on 03-17 Erythrocyte distribution width (RBC) [Ratio] 17 % High 11.5 - 14.5 % [facility] Hematocrit (Bld) [Volume fraction] 26.8 % Low 36.0 - 46.0 % [facility] Hemoglobin (Bld) [Mass/Vol] 7.8 g/dL Low 12.0 - 16.0 g/dL [facility] Interpretation and review of laboratory results Abnormal [facility] MCH (RBC) [Entitic mass] 26.4 pg 26.0 - 34.0 pg [facility] MCHC (RBC) [Mass/Vol] 29.1 g/dL Low 32.0 - 36.0 g/dL [facility] MCV (RBC) [Entitic vol] 91 fL 80 - 100 fL [facility] Nucleated RBC/100 WBC (Bld) [Ratio] 1.3 % High [facility] Platelets (Bld) [#/Vol] 505 10*3/uL High [facility] RBC (Bld) [#/Vol] 2.95 10*6/uL Low [facility] WBC (Bld) [#/Vol] 13 10*3/uL High [facility] Erythrocyte distribution width (RBC) [Ratio] 17.0 % High 11.5-14.5 [facility] Comment on above: Performed By: #### 5 8410-2 ####JANETH Galo ([id number])[facility] ([facility])[address] [place] [address] Hematocrit (Bld) [Volume fraction] 26.8 % Low 36.0-46.0 [facility] Comment on above: Performed By: #### 5 8410-2 ####JANETH Galo ([id number])[facility] ([facility])[address] [place] [address] Hemoglobin (Bld) [Mass/Vol] 7.8 g/dL Low 12.0-16.0 [facility] Comment on above: Performed By: #### 5 8410-2 ####JANETH Galo ([id number])[facility] ([facility])[address] [place] [address] MCH (RBC) [Entitic mass] 26.4 pg Normal 26.0-34.0 [facility] Comment on above: Performed By: #### 5 8410-2 ####JANETH Galo ([id number])[facility] ([facility])[address] [place] [address] MCHC (RBC) [Mass/Vol] 29.1 g/dL Low 32.0-36.0 [facility] Comment on above: Performed By: #### 5 8410-2 ####JANETH Galo ([id number])[facility] ([facility])[address] [place] [address] MCV (RBC) [Entitic vol] 91 fL Normal 80-100 [facility] Comment on above: Performed By: #### 5 8410-2 ####JANETH Galo ([id number])[facility] ([facility])[address] [place] [address] Nucleated RBC/100 WBC (Bld) [Ratio] 1.3 /100 WBCs High 0.0-0.0 [facility] Comment on above: Performed By: #### 5 8410-2 ####JANETH Galo ([id number])[facility] ([facility])[address] [place] [address] Platelets (Bld) [#/Vol] 505 x10*3/uL High 150-450 [facility] Comment on above: Performed By: #### 5 8410-2 ####JANETH Galo ([id number])[facility] ([facility])[address] [place] [address] RBC (Bld) [#/Vol] 2.95 x10*6/uL Low 4.00-5.20 [facility] Comment on above: Performed By: #### 5 8410-2 ####JANETH Galo ([id number])[facility] ([facility])[address] [place] [address] WBC (Bld) [#/Vol] 13.0 x10*3/uL High 4.4-11.3 [facility] Comment on above: Performed By: #### 5 8410-2 ####JANETH Galo ([id number])[facility] ([facility])[address] [place] [address] Basic metabolic 2000 panelon 03-16-2024 Anion gap [Moles/Vol] 9 mmol/L Low 10 - 2 0 mmol/L [facility] Calcium [Mass/Vol] 8.3 mg/dL Low 8.6 - 10. 6 mg/dL [facility] Chloride [Moles/Vol] 102 mmol/L 98 - 10 7 mmol/L [facility] CO2 [Moles/Vol] 31 mmol/L 21 - 32 mmol/L [facility] Creatinine [Mass/Vol] 0.48 mg/dL Low 0.50 - 1.05 mg/dL [facility] eGFR - PINF [facility] Comment on above: Calculations of bill mated GFR are performed using the 2020 CKD-EPI Study Refit equation without the race variable for the IDMS-Traceable creatinine methods. https://jasn.asnjournals.org/content//ASN.611460 4436 Glucose [Mass/Vol] 124 mg/dL High 74 - 99 mg/dL [facility] Interpretation and review of laboratory results Abnormal [facility] Potassium [Moles/Vol] 3.9 mmol/L 3.5 - 5.3 mmol/L [facility] Sodium [Moles/Vol] 138 mmol/L 136 - 145 mmol/L [facility] Urea nitrogen [Mass/Vol] 12 mg/dL 6 - 23 mg/dL [facility] Anion gap [Moles/Vol] 9 mmol/L Low 10-20 [facility] Comment on above: Performed By: #### 2 4321-2 ####JANETH GRAFF L ([id number])[facility] ([facility])[address] [place] [address] Calcium [Mass/Vol] 8.3 mg/dL Low 8.6-10.6 [facility] Comment on above: Performed By: #### 2 4321-2 ####JANETH GRAFF L ([id number])[facility] ([facility])[address] [place] [address] Chloride [Moles/Vol] 102 mmol/L Normal 98-107 [facility] Comment on above: Performed By: #### 2 4321-2 ####JANETH GRAFF L ([id number])[facility] ([facility])[address] [place] [address] CO2 [Moles/Vol] 31 mmol/L Normal 21-32 [facility] Comment on above: Performed By: #### 2 4321-2 ####JANETH GRAFF L ([id number])[facility] ([facility])[address] [place] [address] Creatinine [Mass/Vol] 0.48 mg/dL Low 0.50-1.05 [facility] Comment on above: Performed By: #### 2 4321-2 ####JANETH GRAFF L ([id number])[facility] ([facility])[address] [place] [address] GFR/1.73 sq M.predicted MDRD (S/P/Bld) [Vol rate/Area] mL/min/{1.73_m2} Normal >60 [facility] Comment on above: Result Comment: Calc ulations of estimated GFR are performed using the 2020 CKD-EPI Study Refit equation without the race variable for the IDMS-Traceable creatinine methods.https://jasn.asnjournals.org/content/early/ N.9116461988 Performed By: #### 2 4321-2 ####JANETH Galo ([id number])[facility] ([facility])[address] [place] [address] Glucose [Mass/Vol] 124 mg/dL High 74-99 [facility] Comment on above: Performed By: #### 2 4321-2 ####JANETH Galo ([id number])[facility] ([facility])[address] [place] [address] Potassium [Moles/Vol] 3.9 mmol/L Normal 3.5-5.3 [facility] Comment on above: Performed By: #### 2 4321-2 ####JANETH Galo ([id number])[facility] ([facility])[address] [place] [address] Sodium [Moles/Vol] 138 mmol/L Normal 136-145 [facility] Comment on above: Performed By: #### 2 4321-2 ####JANETH Galo ([id number])[facility] ([facility])[address] [place] [address] Urea nitrogen [Mass/Vol] 12 mg/dL Normal 6-23 [facility] Comment on above: Performed By: #### 2 4321-2 ####JANETH Galo ([id number])[facility] ([facility])[address] [place] [address] CBC panel Auto (Bld)on 03-16 Erythrocyte distribution width (RBC) [Ratio] 16.9 % High 11.5 - 14.5 % [facility] Hematocrit (Bld) [Volume fraction] 24 % Low 36.0 - 46.0 % [facility] Hemoglobin (Bld) [Mass/Vol] 7.3 g/dL Low 12.0 - 16.0 g/dL [facility] Interpretation and review of laboratory results Abnormal [facility] MCH (RBC) [Entitic mass] 26.8 pg 26.0 - 34.0 pg [facility] MCHC (RBC) [Mass/Vol] 30.4 g/dL Low 32.0 - 36.0 g/dL [facility] MCV (RBC) [Entitic vol] 88 fL 80 - 100 fL [facility] Nucleated RBC/100 WBC (Bld) [Ratio] 1 % High [facility] Platelets (Bld) [#/Vol] 416 10*3/uL [facility] RBC (Bld) [#/Vol] 2.72 10*6/uL Low [facility] WBC (Bld) [#/Vol] 12.5 10*3/uL High [facility] Erythrocyte distribution width (RBC) [Ratio] 16.9 % High 11.5-14.5 [facility] Comment on above: Performed By: #### 5 8410-2 ####JANETH Galo ([id number])[facility] ([facility])[address] [place] [address] Hematocrit (Bld) [Volume fraction] 24.0 % Low 36.0-46.0 [facility] Comment on above: Performed By: #### 5 8410-2 ####JANETH Galo ([id number])[facility] ([facility])[address] [place] [address] Hemoglobin (Bld) [Mass/Vol] 7.3 g/dL Low 12.0-16.0 [facility] Comment on above: Performed By: #### 5 8410-2 ####JANETH Galo ([id number])[facility] ([facility])[address] [place] [address] MCH (RBC) [Entitic mass] 26.8 pg Normal 26.0-34.0 [facility] Comment on above: Performed By: #### 5 8410-2 ####JANETH Galo ([id number])[facility] ([facility])[address] [place] [address] MCHC (RBC) [Mass/Vol] 30.4 g/dL Low 32.0-36.0 [facility] Comment on above: Performed By: #### 5 8410-2 ####JANETH Galo ([id number])[facility] ([facility])[address] [place] [address] MCV (RBC) [Entitic vol] 88 fL Normal 80-100 [facility] Comment on above: Performed By: #### 5 8410-2 ####JANETH Galo ([id number])[facility] ([facility])[address] [place] [address] Nucleated RBC/100 WBC (Bld) [Ratio] 1.0 /100 WBCs High 0.0-0.0 [facility] Comment on above: Performed By: #### 5 8410-2 ####JANETH Galo ([id number])[facility] ([facility])[address] [place] [address] Platelets (Bld) [#/Vol] 416 x10*3/uL Normal 150-450 [facility] Comment on above: Performed By: #### 5 8410-2 ####JANETH Galo ([id number])[facility] ([facility])[address] [place] [address] RBC (Bld) [#/Vol] 2.72 x10*6/uL Low 4.00-5.20 [facility] Comment on above: Performed By: #### 5 8410-2 ####JAENTH Galo ([id number])[facility] ([facility])[address] [place] [address] WBC (Bld) [#/Vol] 12.5 x10*3/uL High 4.4-11.3 [facility] Comment on above: Performed By: #### 5 8410-2 ####JANETH Galo ([id number])[facility] ([facility])[address] [place] [address] [place] 03-16-2024 BRITNEY Telephone (DENISEINSPENCER) ----- DEIDRA DE LA CRUZ ([id number]) 1970 F Date Time Provider Department 03/16/24 BIJAN ELMORE During your visit today, we recorded the following information about you: Lorna Tolbert 03/16/2024 12:46 PM Signed Deidra is calling Bijan Elmore MD today with concern regarding a situation where she needs a nurse 1-2 times a week before the hospital will release her. [facility]- has been trying to get her [...] calling: self Call patient at: on cell [phone] (cell) Was an appointment scheduled: No Closing statement: Results or non-symptom based questions: Thank you for calling [facility], your call will be returned within the next business day. Lorna Tolbert Costa Johnson LPN 03/17/2024 10:08 AM Signed Call placed to patient. She has a pic line and a wound vac. Patient has a brace on leg but has been doing transfers. Per patient her son will be home with her and has support from niece. Call placed to [facility]. They are able to except patient back. Cheryl Araujo APRN.MALI 03/17/2024 10:46 AM Signed Home Health Orders signed, please fax Cheryl Araujo APRN.Carlo Ott LPN 03/18/2024 5:25 PM Signed Fax sent Costa Johnson LPN 03/22/2024 4:22 PM Signed Orders faxed to [facility] Allergies As of Date: 03/16/2024 Noted Allergy Reaction PENICILLIN 06/05/2015 16 - Unknown Date Reviewed: 11/18/2023 Reviewed by: Carlo Miranda LPN - Fully Assessed Reason for Visit: Home Health Care Nurse Needed pati [Other] Primary Visit Diagnosis:Encounter for management of wound VAC [Z46.89] Other Visit Diagnosis:Status post PICC central line placement [Z95.828] Order(s):[facility] [[id number]] Order #: [id number]: 1 Prescriptions as of 03/22/2024 - levETIRAcetam [...] Status:Closed by CARLO MIRANDA on 03/18/24 Normal [facility] MRSA isol Org specific cx Ql (Nose)Ordered By: Radha Bird on 03-16-2024 Interpretation and review of laboratory results Normal [facility] Staphylococcus sp identified Org specific cx Nom (Unsp spec) No Staphylococcus aureus isolated [facility] Bacteria identified Cx Nom ( Bld)on 03-15-2024 Interpretation and review of laboratory results Normal [facility] Basic metabolic 2000 panelon 03-15-2024 Anion gap [Moles/Vol] 11 mmol/L 10 - 2 0 mmol/L [facility] Calcium [Mass/Vol] 8.9 mg/dL 8.6 - 10. 6 mg/dL [facility] Chloride [Moles/Vol] 100 mmol/L 98 - 10 7 mmol/L [facility] CO2 [Moles/Vol] 30 mmol/L 21 - 32 mmol/L [facility] Creatinine [Mass/Vol] 0.51 mg/dL 0.50 - 1.05 mg/dL [facility] eGFR - PINF [facility] Comment on above: Calculations of bill mated GFR are performed using the 2020 CKD-EPI Study Refit equation without the race variable for the IDMS-Traceable creatinine methods. https://jasn.asnjournals.org/content/early/ASN.195834 6288 Glucose [Mass/Vol] 104 mg/dL High 74 - 99 mg/dL [facility] Interpretation and review of laboratory results Abnormal [facility] Potassium [Moles/Vol] 3.9 mmol/L 3.5 - 5.3 mmol/L [facility] Sodium [Moles/Vol] 137 mmol/L 136 - 145 mmol/L [facility] Urea nitrogen [Mass/Vol] 10 mg/dL 6 - 23 mg/dL [facility] Anion gap [Moles/Vol] 11 mmol/L Normal 10-20 [facility] Comment on above: Performed By: #### 2 4321-2 ####JANETH GRAFF L ([id number])[facility] ([facility])[id number] [place] [address] Calcium [Mass/Vol] 8.9 mg/dL Normal 8.6-10.6 [facility] Comment on above: Performed By: #### 2 4321-2 ####JANETH GRAFF L ([id number])[facility] ([facility])[address] [place] [address] Chloride [Moles/Vol] 100 mmol/L Normal 98-107 [facility] Comment on above: Performed By: #### 2 4321-2 ####JANETH CONNORMOTZER L ([id number])[facility] ([facility])[address] [place] [address] CO2 [Moles/Vol] 30 mmol/L Normal 21-32 [facility] Comment on above: Performed By: #### 2 4321-2 ####JANETH MCDONALDTZER L ([id number])[facility] [facility])[address] [place] [address] Creatinine [Mass/Vol] 0.51 mg/dL Normal 0.50-1.05 [facility] Comment on above: Performed By: #### 2 4321-2 ####JANETH GRAFF L ([id number])[facility] ([facility])[address] [place] [address] GFR/1.73 sq M.predicted MDRD (S/P/Bld) [Vol rate/Area] mL/min/{1.73_m2} Normal >60 [facility] Comment on above: Result Comment: Calc ulations of estimated GFR are performed using the 2020 CKD-EPI Study Refit equation without the race variable for the IDMS-Traceable creatinine methods.https://jasn.asnjournals.org/content/early// N.0038907046 Performed By: #### 2 4321-2 ####JANETH RANGELER L ([id number])[facility] ([facility])[address] [place] [address] Glucose [Mass/Vol] 104 mg/dL High 74-99 [facility] Comment on above: Performed By: #### 2 4321-2 ####JANETH CONNORMOPIEDADER L ([id number])[facility] ([facility])[address] [place] [address] Potassium [Moles/Vol] 3.9 mmol/L Normal 3.5-5.3 [facility] Comment on above: Performed By: #### 2 4321-2 ####JANETH CONNORMOTZER L ([id number])[facility] ([facility])[address] [place] [address] Sodium [Moles/Vol] 137 mmol/L Normal 136-145 [facility] Comment on above: Performed By: #### 2 4321-2 ####JANETH SCHMOTZER L ([id number])[facility] ([facility])[address] [place] [address] Urea nitrogen [Mass/Vol] 10 mg/dL Normal 6-23 [facility] Comment on above: Performed By: #### 2 4321-2 ####JANETH SCHMOTZER L ([id number])[facility] ([facility])[address] [place] [address] Bedside PICC Imagingon 03-15 These images are not reportable by radiology and will not be interpreted by Radiologists. IMAGING CBC panel Auto (Bld)on 03-15 Erythrocyte distribution width (RBC) [Ratio] 17.2 % High 11.5 - 14.5 % [facility] Hematocrit (Bld) [Volume fraction] 26.4 % Low 36.0 - 46.0 % [facility] Hemoglobin (Bld) [Mass/Vol] 7.8 g/dL Low 12.0 - 16.0 g/dL [facility] Interpretation and review of laboratory results Abnormal [facility] MCH (RBC) [Entitic mass] 26.7 pg 26.0 - 34.0 pg [facility] MCHC (RBC) [Mass/Vol] 29.5 g/dL Low 32.0 - 36.0 g/dL [facility] MCV (RBC) [Entitic vol] 90 fL 80 - 100 fL [facility] Nucleated RBC/100 WBC (Bld) [Ratio] 0.3 % High [facility] Platelets (Bld) [#/Vol] 402 10*3/uL [facility] RBC (Bld) [#/Vol] 2.92 10*6/uL Low [facility] WBC (Bld) [#/Vol] 13.9 10*3/uL High [facility] Erythrocyte distribution width (RBC) [Ratio] 17.2 % High 11.5-14.5 [facility] Comment on above: Performed By: #### 5 8410-2 ####JANETH Galo ([id number])[facility] ([facility])[id number] [place] [address] Hematocrit (Bld) [Volume fraction] 26.4 % Low 36.0-46.0 [facility] Comment on above: Performed By: #### 5 8410-2 ####JANETH Galo ([id number])[facility] ([facility])[address] [place] [address] Hemoglobin (Bld) [Mass/Vol] 7.8 g/dL Low 12.0-16.0 [facility] Comment on above: Performed By: #### 5 8410-2 ####JANETH Galo ([id number])[facility] ([facility])[address] [place] [address] MCH (RBC) [Entitic mass] 26.7 pg Normal 26.0-34.0 [facility] Comment on above: Performed By: #### 5 8410-2 ####JANETH Galo ([id number])[facility] ([facility])[address] [place] [address] MCHC (RBC) [Mass/Vol] 29.5 g/dL Low 32.0-36.0 [facility] Comment on above: Performed By: #### 5 8410-2 ####JANETH Galo ([id number])[facility] ([facility])[address] [place] [address] MCV (RBC) [Entitic vol] 90 fL Normal 80-100 [facility] Comment on above: Performed By: #### 5 8410-2 ####JANETH Galo ([id number])[facility] ([facility])[address] [place] [address] Nucleated RBC/100 WBC (Bld) [Ratio] 0.3 /100 WBCs High 0.0-0.0 [facility] Comment on above: Performed By: #### 5 8410-2 ####JANETH Galo ([id number])[facility] ([facility])[address] [place] [address] Platelets (Bld) [#/Vol] 402 x10*3/uL Normal 150-450 [facility] Comment on above: Performed By: #### 5 8410-2 ####JANETH Galo ([id number])[facility] ([facility])[address] [place] [address] RBC (Bld) [#/Vol] 2.92 x10*6/uL Low 4.00-5.20 [facility] Comment on above: Performed By: #### 5 8410-2 ####JANETH Galo ([id number])[facility] ([facility])[address] [place] [address] WBC (Bld) [#/Vol] 13.9 x10*3/uL High 4.4-11.3 [facility] Comment on above: Performed By: #### 5 8410-2 ####JANETH Galo ([id number])[facility] ([facility])[address] [place] [address] CTA Thoracic and Abdominal A christelle and [...] as stated. This study was interpreted at [facility], [place], [place]. MACRO: None Signed by: Micha Waldron 03/15/2024 5:51 AM Dictation workstation: [id number]ODAL Interpreted By: Micha Joyce, and Juliette Hernandez STUDY: CT ANGIO AORTA AND BILATERAL ILIOFEMORAL RUN OFF INCLUDING WITHOUT CONTRAST IF PERFORMED; 03/14/2024 4:21 pm INDICATION: Signs/Symptoms:Evaluation of RLE for possible flap. . COMPARISON: CT right tibia/fibula 03/12/2024 ACCESSION NUMBER(S): [id number] ORDERING CLINICIAN: CRUZ GOODMAN TECHNIQUE: High-resolution contrast-enhanced [...] COMPARISON: CT right tibia/fibula 03/12/2024 ACCESSION NUMBER(S): [id number] ORDERING CLINICIAN: CRUZ GOODMAN TECHNIQUE: High-resolution contrast-enhanced [...] acute retroperitoneal abnormality. (more content not included)... [facility] Work Phone: CTA Thoracic and Abdominal A christelle and Bilateral Runoff Vessels WO and W contrast IVOrdered By: Micha Waldron on 03-15-2024 [facility] Work Phone: Laboratory - Microbiology an d Antimicrobial susceptibilityon 03-15-2024 Bacteria identified Cx Nom (Bld) No growth at 4 days - FINAL REPORT [facility] PICC >5 YR BEDSIDE IMAGINGon 03-15-2024 PICC >5 YR BEDSIDE IMAGING These images are not reportable by radiology and will not be interpreted by Radiologists. Normal [facility] Staphylococcus aureus.methic illin resistant isolateon 03-15-2024 MRSA isol Org specific cx Ql (Nose) Normal [facility] Comment on above: Performed By: #### 5 2969-3 ####JANETH Galo ([id number])[facility] ([facility])[address] [place] [address] Basic metabolic 2000 panelon 03-14-2024 Anion gap [Moles/Vol] 11 mmol/L 10 - 2 0 mmol/L [facility] Calcium [Mass/Vol] 8.9 mg/dL 8.6 - 10. 6 mg/dL [facility] Chloride [Moles/Vol] 103 mmol/L 98 - 10 7 mmol/L [facility] CO2 [Moles/Vol] 30 mmol/L 21 - 32 mmol/L [facility] Creatinine [Mass/Vol] 0.69 mg/dL 0.50 - 1.05 mg/dL [facility] eGFR - PINF [facility] Comment on above: Calculations of bill mated GFR are performed using the 2020 CKD-EPI Study Refit equation without the race variable for the IDMS-Traceable creatinine methods. https://jasn.asnjournals.org/content//ASN.157592 9599 Glucose [Mass/Vol] 104 mg/dL High 74 - 99 mg/dL [facility] Interpretation and review of laboratory results Abnormal [facility] Potassium [Moles/Vol] 4.9 mmol/L 3.5 - 5.3 mmol/L [facility] Sodium [Moles/Vol] 139 mmol/L 136 - 145 mmol/L [facility] Urea nitrogen [Mass/Vol] 10 mg/dL 6 - 23 mg/dL [facility] Anion gap [Moles/Vol] 11 mmol/L Normal 10-20 [facility] Comment on above: Performed By: #### 2 4321-2 ####JANETH Galo ([id number])[facility] ([facility])[address] [place] [address] Calcium [Mass/Vol] 8.9 mg/dL Normal 8.6-10.6 [facility] Comment on above: Performed By: #### 2 4321-2 ####JANETH GRAFF L ([id number])[facility] ([facility])[address] [place] [address] Chloride [Moles/Vol] 103 mmol/L Normal 98-107 [facility] Comment on above: Performed By: #### 2 4321-2 ####JANETH GRAFF L ([id number])[facility] ([facility])[address] [place] [address] CO2 [Moles/Vol] 30 mmol/L Normal 21-32 [facility] Comment on above: Performed By: #### 2 4321-2 ####JANETH GRAFF L ([id number])[facility] ([facility])[address] [place] [address] Creatinine [Mass/Vol] 0.69 mg/dL Normal 0.50-1.05 [facility] Comment on above: Performed By: #### 2 4321-2 ####JANETH Galo ([id number])[facility] ([facility])[address] [place] [address] GFR/1.73 sq M.predicted MDRD (S/P/Bld) [Vol rate/Area] mL/min/{1.73_m2} Normal >60 [facility] Comment on above: Result Comment: Calc ulations of estimated GFR are performed using the 2020 CKD-EPI Study Refit equation without the race variable for the IDMS-Traceable creatinine methods.https://jasn.asnjournals.org/content/early// N.1360245785 Performed By: #### 2 4321-2 ####JANETH Galo ([id number])[facility] ([facility])[address] [place] [address] Glucose [Mass/Vol] 104 mg/dL High 74-99 [facility] Comment on above: Performed By: #### 2 4321-2 ####JANETH GRAFF L ([id number])[facility] ([facility])[address] [place] [address] Potassium [Moles/Vol] 4.9 mmol/L Normal 3.5-5.3 [facility] Comment on above: Performed By: #### 2 4321-2 ####JANETH GRAFF L ([id number])[facility] ([facility])[address] [place] [address] Sodium [Moles/Vol] 139 mmol/L Normal 136-145 [facility] Comment on above: Performed By: #### 2 4321-2 ####JANETH CONNORMOSARITA L ([id number])[facility] ([facility])[address] [place] [address] Urea nitrogen [Mass/Vol] 10 mg/dL Normal 6-23 [facility] Comment on above: Performed By: #### 2 4321-2 ####JANETH GRAFF L ([id number])[facility] ([facility])[address] [place] [address] CBC panel Auto (Bld)on 03-14 Erythrocyte distribution width (RBC) [Ratio] 17.3 % High 11.5 - 14.5 % [facility] Hematocrit (Bld) [Volume fraction] 27.6 % Low 36.0 - 46.0 % [facility] Hemoglobin (Bld) [Mass/Vol] 7.9 g/dL Low 12.0 - 16.0 g/dL [facility] Interpretation and review of laboratory results Abnormal [facility] MCH (RBC) [Entitic mass] 26.8 pg 26.0 - 34.0 pg [facility] MCHC (RBC) [Mass/Vol] 28.6 g/dL Low 32.0 - 36.0 g/dL [facility] MCV (RBC) [Entitic vol] 94 fL 80 - 100 fL [facility] Nucleated RBC/100 WBC (Bld) [Ratio] 0.2 % High [facility] Platelets (Bld) [#/Vol] 305 10*3/uL [facility] RBC (Bld) [#/Vol] 2.95 10*6/uL Low [facility] WBC (Bld) [#/Vol] 14.4 10*3/uL High [facility] Erythrocyte distribution width (RBC) [Ratio] 17.3 % High 11.5-14.5 [facility] Comment on above: Performed By: #### 5 8410-2 ####JANETH Galo ([id number])[facility] ([facility])[id number] [place] [address] Hematocrit (Bld) [Volume fraction] 27.6 % Low 36.0-46.0 [facility] Comment on above: Performed By: #### 5 8410-2 ####JANETH Galo ([id number])[facility] ([facility])[address] [place] [address] Hemoglobin (Bld) [Mass/Vol] 7.9 g/dL Low 12.0-16.0 [facility] Comment on above: Performed By: #### 5 8410-2 ####JANETH Galo ([id number])[facility] ([facility])[address] [place] [address] MCH (RBC) [Entitic mass] 26.8 pg Normal 26.0-34.0 [facility] Comment on above: Performed By: #### 5 8410-2 ####JANETH Galo ([id number])[facility] ([facility])[address] [place] [address] MCHC (RBC) [Mass/Vol] 28.6 g/dL Low 32.0-36.0 [facility] Comment on above: Performed By: #### 5 8410-2 ####JANETH Galo ([id number])[facility] ([facility])[address] [place] [address] MCV (RBC) [Entitic vol] 94 fL Normal 80-100 [facility] Comment on above: Performed By: #### 5 8410-2 ####JANETH Galo ([id number])[facility] ([facility])[address] [place] [address] Nucleated RBC/100 WBC (Bld) [Ratio] 0.2 /100 WBCs High 0.0-0.0 [facility] Comment on above: Performed By: #### 5 8410-2 ####JANETH Galo ([id number])[facility] ([facility])[address] [place] [address] Platelets (Bld) [#/Vol] 305 x10*3/uL Normal 150-450 [facility] Comment on above: Performed By: #### 5 8410-2 ####JANETH Galo ([id number])[facility] ([facility])[address] [place] [address] RBC (Bld) [#/Vol] 2.95 x10*6/uL Low 4.00-5.20 [facility] Comment on above: Performed By: #### 5 8410-2 ####JANETH Galo ([id number])[facility] ([facility])[address] [place] [address] WBC (Bld) [#/Vol] 14.4 x10*3/uL High 4.4-11.3 [facility] Comment on above: Performed By: #### 5 8410-2 ####JANETH Galo ([id number])[facility] ([facility])[address] [place] [id number] ANGIO AORTA AND BILATERAL ILIOFEMORAL RUN OFF INCLUDING WITHOUT CONTRAST IF PERFORMEDon 03-14-2024 CT ANGIO AORTA AND BILATERAL ILIOFEMORAL RUN OFF INCLUDING WITHOUT CONTRAST IF PERFORMED Normal [facility] CTA Thoracic and Abdominal A christelle and Bilateral Runoff Vessels WO and W contrast Fritz 03-14-2024 Radiology Study observation (narrative) [facility] Work Phone: Basic metabolic 2000 panelon 03-13-2024 Anion gap [Moles/Vol] 12 mmol/L 10 - 2 0 mmol/L [facility] Calcium [Mass/Vol] 8.4 mg/dL Low 8.6 - 10. 6 mg/dL [facility] Chloride [Moles/Vol] 103 mmol/L 98 - 10 7 mmol/L [facility] CO2 [Moles/Vol] 27 mmol/L 21 - 32 mmol/L [facility] Creatinine [Mass/Vol] 0.94 mg/dL 0.50 - 1.05 mg/dL [facility] GFR/1.73 sq M.predicted among non-blacks MDRD (S/P/Bld) [Vol rate/Area] 73 mL/min/{1.73_m2} - PINF [facility] Comment on above: Calculations of bill mated GFR are performed using the 2020 CKD-EPI Study Refit equation without the race variable for the IDMS-Traceable creatinine methods. https://jasn.asnjournals.org/content/early//ASN.794850 6999 Glucose [Mass/Vol] 126 mg/dL High 74 - 99 mg/dL [facility] Interpretation and review of laboratory results Abnormal [facility] Potassium [Moles/Vol] 4.4 mmol/L 3.5 - 5.3 mmol/L [facility] Sodium [Moles/Vol] 138 mmol/L 136 - 145 mmol/L [facility] Urea nitrogen [Mass/Vol] 14 mg/dL 6 - 23 mg/dL [facility] Anion gap [Moles/Vol] 12 mmol/L Normal 10-20 [facility] Comment on above: Performed By: #### 2 4321-2 ####JANETH MCDONALDTZER L ([id number])[facility] ([facility])[address] [place] [address] Calcium [Mass/Vol] 8.4 mg/dL Low 8.6-10.6 [facility] Comment on above: Performed By: #### 2 4321-2 ####JANETH CONNORMOTZER L ([id number])[facility] ([facility])[address] [place] [address] Chloride [Moles/Vol] 103 mmol/L Normal 98-107 [facility] Comment on above: Performed By: #### 2 4321-2 ####JANETH SCHMOTZER L ([id number])[facility] ([facility])[address] [place] [address] CO2 [Moles/Vol] 27 mmol/L Normal 21-32 [facility] Comment on above: Performed By: #### 2 4321-2 ####JANETH CONNORMOTZER L ([id number])[facility] ([facility])[address] [place] [address] Creatinine [Mass/Vol] 0.94 mg/dL Normal 0.50-1.05 [facility] Comment on above: Performed By: #### 2 4321-2 ####JANETH CONNORMOTZER L ([id number])[facility] ([facility])[address] [place] [address] Glomerular filtration rate/1.73 sq M.predicted 73 mL/min/1.73m*2 Normal >60 [facility] Comment on above: Result Comment: Calc ulations of estimated GFR are performed using the 2020 CKD-EPI Study Refit equation without the race variable for the IDMS-Traceable creatinine methods.https://jasn.asnjournals.org/content// N.4205654919 Performed By: #### 2 4321-2 ####JANETH Galo ([id number])[facility] ([facility])[address] [place] [address] Glucose [Mass/Vol] 126 mg/dL High 74-99 [facility] Comment on above: Performed By: #### 2 4321-2 ####JANETH Galo ([id number])[facility] ([facility])[address] [place] [address] Potassium [Moles/Vol] 4.4 mmol/L Normal 3.5-5.3 [facility] Comment on above: Performed By: #### 2 4321-2 ####JANETH Galo ([id number])[facility] ([facility])[address] [place] [address] Sodium [Moles/Vol] 138 mmol/L Normal 136-145 [facility] Comment on above: Performed By: #### 2 4321-2 ####JANETH Galo ([id number])[facility] ([facility])[address] [place] [address] Urea nitrogen [Mass/Vol] 14 mg/dL Normal 6-23 [facility] Comment on above: Performed By: #### 2 4321-2 ####JANETH Galo ([id number])[facility] ([facility])[id number] [place] [address] CBC panel Auto (Bld)on 03-13 Erythrocyte distribution width (RBC) [Ratio] 17.2 % High 11.5 - 14.5 % [facility] Hematocrit (Bld) [Volume fraction] 28.8 % Low 36.0 - 46.0 % [facility] Hemoglobin (Bld) [Mass/Vol] 8.1 g/dL Low 12.0 - 16.0 g/dL [facility] Interpretation and review of laboratory results Abnormal [facility] MCH (RBC) [Entitic mass] 26.6 pg 26.0 - 34.0 pg [facility] MCHC (RBC) [Mass/Vol] 28.1 g/dL Low 32.0 - 36.0 g/dL [facility] MCV (RBC) [Entitic vol] 94 fL 80 - 100 fL [facility] Nucleated RBC/100 WBC (Bld) [Ratio] 0 % [facility] Platelets (Bld) [#/Vol] 344 10*3/uL [facility] RBC (Bld) [#/Vol] 3.05 10*6/uL Low [facility] WBC (Bld) [#/Vol] 20.1 10*3/uL High [facility] Erythrocyte distribution width (RBC) [Ratio] 17.2 % High 11.5-14.5 [facility] Comment on above: Performed By: #### 5 8410-2 ####JANETH Galo ([id number])[facility] ([facility])[address] [place] [address] Hematocrit (Bld) [Volume fraction] 28.8 % Low 36.0-46.0 [facility] Comment on above: Performed By: #### 5 8410-2 ####JANETH Galo (33906)[facility] ([facility])[address] [place] [address] Hemoglobin (Bld) [Mass/Vol] 8.1 g/dL Low 12.0-16.0 [facility] Comment on above: Performed By: #### 5 8410-2 ####JANETH Galo ([id number])[facility] ([facility])[address] [place] [address] MCH (RBC) [Entitic mass] 26.6 pg Normal 26.0-34.0 [facility] Comment on above: Performed By: #### 5 8410-2 ####JANETH Galo ([id number])[facility] ([facility])[address] [place] [address] MCHC (RBC) [Mass/Vol] 28.1 g/dL Low 32.0-36.0 [facility] Comment on above: Performed By: #### 5 8410-2 ####JANETH Galo ([id number])[facility] ([facility])[address] [place] [address] MCV (RBC) [Entitic vol] 94 fL Normal 80-100 [facility] Comment on above: Performed By: #### 5 8410-2 ####JANETH Galo ([id number])[facility] ([facility])[address] [place] [address] Nucleated RBC/100 WBC (Bld) [Ratio] 0.0 /100 WBCs Normal 0.0-0.0 [facility] Comment on above: Performed By: #### 5 8410-2 ####JANETH Galo ([id number])[facility] ([facility])[address] [place] [address] Platelets (Bld) [#/Vol] 344 x10*3/uL Normal 150-450 [facility] Comment on above: Performed By: #### 5 8410-2 ####JANETH Galo ([id number])[facility] ([facility])[address] [place] [address] RBC (Bld) [#/Vol] 3.05 x10*6/uL Low 4.00-5.20 [facility] Comment on above: Performed By: #### 5 8410-2 ####JANETH Galo ([id number])[facility] ([facility])[id number] [place] [address] WBC (Bld) [#/Vol] 20.1 x10*3/uL High 4.4-11.3 [facility] Comment on above: Performed By: #### 5 8410-2 ####JANETH Galo ([id number])[facility] ([facility])[id number] [place] [address] No Panel Informationon 03-13 [facility] Vancomycinon 03-13-2024 Vancomycin [Mass/Vol] 12.9 ug/mL 5.0 - 20.0 ug/mL [facility] Vancomycin [Mass/Vol] 12.9 ug/mL Normal 5.0-20.0 [facility] Comment on above: Order Comment: [...] Performed By: #### 2 0578-1 ####JANETH Galo ([id number])[facility] ([facility])[address] [place] [address] Vancomycin [Mass/Vol]on 02-18 Interpretation and review of laboratory results [facility] Vancomycin levels can be monitored according [...] 30.0-40.0 ug/mL Trough (all ages): 10.0-20.0 ug/mL [facility] Bacteria identifiedon 2024 Bacteria identified Cx Nom (Unsp spec) [facility] Comment on above: Performed By: #### 6 [id number] ####JANETH Galo ([id number])[facility] ([facility])[id number] [place] [address] Bacteria identified Cx Nom (Unsp spec) [facility] Comment on above: Performed By: #### 6 463-4 ####JANETH Galo ([id number])[facility] ([facility])[address] [place] [address] Bacteria identified Cx Nom (Unsp spec) [facility] Comment on above: Performed By: #### 6 463-4 ####JANETH Galo ([id number])[facility] ([facility])[address] [place] [address] CT Lower leg - right WO timoteo [...] Siddharth Frankel 03/12/2024 12:56 PM Dictation workstation: [id number] Interpreted By: Siddharth Jang, and Carol Boo STUDY: CT of the right tibia/fibula without intravenous contrast dated 03/12/2024. INDICATION: Signs/Symptoms:chronic osteomyelitis COMPARISON: None. ACCESSION NUMBER(S): [id number] ORDERING CLINICIAN: CRUZ GOODMAN TECHNIQUE: Axial CT [...] Siddharth Frankel MD - 03/12/2024 Interpreted By: Sidhdarth Frankel and Bartolomei Aguilar Christopher STUDY: CT of the right tibia/fibula without intravenous contrast dated 03/12/2024. INDICATION: Signs/Symptoms:chronic osteomyelitis COMPARISON: None. ACCESSION NUMBER(S): [id number] ORDERING CLINICIAN: CRUZ GOODMAN TECHNIQUE: Axial CT [...] 3.8 cm in depth. Diffuse demineralization. Patella Kelly is again noted. Small knee joint effusion. [...] Siddharth Frankel 03/12/2024 12:56 PM Dictation workstation: [id number] [facility] Work Phone: Radiology Study observation (narrative) [facility] Work Phone: CT Lower leg - right WO cont rastOrdered By: Siddharth Frankel on 03-12-2024 [facility] Work Phone: ECG 12-LEADon 03-12-2024 ECG 12-LEAD Ventricular Rate 72 Atrial Rate 72 P-R Interval 166 QRS Duration 88 Q-T Interval 372 QTC Calculation(Bazett) 407 P Lulu 56 R Lulu 37 T Lulu 42 QRS Count 12 Q Onset 214 P Onset 131 P Offset 193 T Offset 400 QTC Fredericia 395 Diagnosis Normal sinus rhythm with sinus arrhythmia Normal ECG When compared with ECG of 12-MAR-2024 00:10, No significant change was found Confirmed by Moe Cason ([id number]) on 03/27/2024 1:37:13 PM Normal [facility] FL FLUORO IMAGES NO CHARGEon 03-12-2024 FL FLUORO IMAGES NO CHARGE These images are not reportable by radiology and will not be interpreted by Radiologists. Normal [facility] Comment on above: Order Comment: On ca ll to OR Fungus identifiedon 03-12-19 Fungus identified Cx Nom (Unsp spec) [facility] Comment on above: Performed By: #### 5 80-1 ####JANETH Galo ([id number])[facility] ([facility])[address] [place] [address] Fungus identified Cx Nom (Unsp spec) Normal [facility] Comment on above: Performed By: #### 5 80-1 ####JANETH Galo ([id number])[facility] ([facility])[address] [place] [address] Fungus identified Cx Nom (Unsp spec) [facility] Comment on above: Performed By: #### 5 80-1 ####JANETH Galo ([id number])[facility] ([facility])[address] [place] [address] XR Chest Single viewon 03-12 1. No evidence of ac [place] cardiopulmonary process. I personally reviewed the images/study and I agree with the findings as stated by Carlos Wren MD (resident) . This study was interpreted at [place], [place]. MACRO: None Signed by: Osmel Viera 03/12/2024 7:30 AM Dictation workstation: [id number] MMODAL Interpreted By: Osmel Viera and Velez-Martinez Osvaldo STUDY: XR CHEST 1 VIEW; 03/11/2024 7:47 pm INDICATION: Signs/Symptoms:preop. COMPARISON: None. ACCESSION NUMBER(S): [id number] ORDERING CLINICIAN: CRUZ GOODMAN FINDINGS: AP radiograph [...] pm INDICATION: Signs/Symptoms:preop. COMPARISON: None. ACCESSION NUMBER(S): [id number] ORDERING CLINICIAN: CRUZ GOODMAN FINDINGS: AP radiograph [...] (resident) . This study was interpreted at [facility], [place], [place]. MACRO: None Signed by: Osmel Viera 03/12/2024 7:30 AM Dictation workstation: [id number] [facility] Work Phone: XR Chest Single viewOrdered By: Osmel Viera on 03-12-2024 [facility] Work Phone: XR tomography Unspecified reynaldo dy regionon 03-12-2024 These images are not reportable by radiology and will not be interpreted by Radiologists. IMAGING Bacteria identifiedon 2024 Bacteria identified Cx Nom (Bld) Normal [facility] Comment on above: Performed By: #### 6 00-7 ####JANETH Galo ([id number])[facility] ([facility])[id number] [place] [address] Basic metabolic 2000 panelon 03-11-2024 Anion gap [Moles/Vol] 11 mmol/L 10 - 2 0 mmol/L [facility] Calcium [Mass/Vol] 9.5 mg/dL 8.6 - 10. 6 mg/dL [facility] Chloride [Moles/Vol] 100 mmol/L 98 - 10 7 mmol/L [facility] CO2 [Moles/Vol] 28 mmol/L 21 - 32 mmol/L [facility] Creatinine [Mass/Vol] 0.79 mg/dL 0.50 - 1.05 mg/dL [facility] GFR/1.73 sq M.predicted among non-blacks MDRD (S/P/Bld) [Vol rate/Area] 90 mL/min/{1.73_m2} - PINF [facility] Comment on above: Calculations of bill mated GFR are performed using the 2020 CKD-EPI Study Refit equation without the race variable for the IDMS-Traceable creatinine methods. https://jasn.asnjournals.org/content//ASN.514457 9805 Glucose [Mass/Vol] 95 mg/dL 74 - 99 mg/dL [facility] Potassium [Moles/Vol] 4.6 mmol/L 3.5 - 5.3 mmol/L [facility] Sodium [Moles/Vol] 134 mmol/L Low 136 - 145 mmol/L [facility] Urea nitrogen [Mass/Vol] 11 mg/dL 6 - 23 mg/dL [facility] Anion gap [Moles/Vol] 11 mmol/L Normal 10-20 [facility] Comment on above: Performed By: #### 2 4321-2 ####JANETH Galo ([id number])[facility] ([facility])[address] [place] [address] Calcium [Mass/Vol] 9.5 mg/dL Normal 8.6-10.6 [facility] Comment on above: Performed By: #### 2 4321-2 ####JANETH Galo ([id number])[facility] ([facility])[address] [place] [address] Chloride [Moles/Vol] 100 mmol/L Normal 98-107 [facility] Comment on above: Performed By: #### 2 4321-2 ####JANETH GRAFF L ([id number])[facility] ([facility])[address] [place] [address] CO2 [Moles/Vol] 28 mmol/L Normal 21-32 [facility] Comment on above: Performed By: #### 2 4321-2 ####JANETH GRAFF L ([id number])[facility] ([facility])[address] [place] [address] Creatinine [Mass/Vol] 0.79 mg/dL Normal 0.50-1.05 [facility] Comment on above: Performed By: #### 2 4321-2 ####JANETH GRAFF L ([id number])[facility] ([facility])[address] [place] [address] Glomerular filtration rate/1.73 sq M.predicted 90 mL/min/1.73m*2 Normal >60 [facility] Comment on above: Result Comment: Calc ulations of estimated GFR are performed using the 2020 CKD-EPI Study Refit equation without the race variable for the IDMS-Traceable creatinine methods.https://jasn.asnjournals.org/content/early/ N.9073292911 Performed By: #### 2 4321-2 ####JANETH Galo ([id number])[facility] ([facility])[address] [place] [address] Glucose [Mass/Vol] 95 mg/dL Normal 74-99 [facility] Comment on above: Performed By: #### 2 4321-2 ####JANETH Galo ([id number])[facility] ([facility])[address] [place] [address] Potassium [Moles/Vol] 4.6 mmol/L Normal 3.5-5.3 [facility] Comment on above: Performed By: #### 2 4321-2 ####JANETH Galo ([id number])[facility] ([facility])[address] [place] [address] Sodium [Moles/Vol] 134 mmol/L Low 136-145 [facility] Comment on above: Performed By: #### 2 4321-2 ####JANETH Galo ([id number])[facility] ([facility])[address] [place] [address] Urea nitrogen [Mass/Vol] 11 mg/dL Normal 6-23 [facility] Comment on above: Performed By: #### 2 4321-2 ####JANETH Galo ([id number])[facility] ([facility])[address] [place] [address] Blood type and Indirect anti body screen panel (Bld)on 03-11-2024 ABO group Nom (Bld) A Normal [facility] Comment on above: Performed By: #### 3 4532-2 ####JANETH Galo ([id number])[facility] ([facility])[address] [place] [address] Blood group antibody screen Ql Negative [facility] Comment on above: Performed By: #### 3 4532-2 ####JANETH Galo ([id number])[facility] ([facility])[address] [place] [address] D Ag Ql (Bld) Positive Normal [facility] Comment on above: Performed By: #### 3 4532-2 ####JANETH Galo ([id number])[facility] ([facility])[address] [place] [address] C reactive proteinon 025 CRP [Mass/Vol] 2.53 mg/dL High <1.00 [facility] Comment on above: Performed By: #### 1 988-5 ####JANETH Galo ([id number])[facility] ([facility])[address] [place] [address] C-reactive proteinon 025 CRP [Mass/Vol] 2.53 mg/dL High NINF - 1.00 mg/dL [facility] CBC W Auto Differential pane l (Bld)on 03-11-2024 Basophils (Bld) [#/Vol] 0.08 10*3/uL [facility] Basophils/100 WBC (Bld) 0.6 % 0.0 - 2.0 % [facility] Eosinophils (Bld) [#/Vol] 0.68 10*3/uL [facility] Eosinophils/100 WBC (Bld) 5.2 % 0.0 - 6.0 % [facility] Erythrocyte distribution width (RBC) [Ratio] 17.1 % High 11.5 - 14.5 % [facility] Hematocrit (Bld) [Volume fraction] 39.7 % 36.0 - 46.0 % [facility] Hemoglobin (Bld) [Mass/Vol] 12.2 g/dL 12.0 - 16.0 g/dL [facility] Immature granulocytes (Bld) [#/Vol] 0.03 10*3/uL [facility] Immature granulocytes/100 WBC (Bld) 0.2 % 0.0 - 0.9 % [facility] Comment on above: Immature Granulocyte Count (IG) includes promyelocytes, myelocytes and metamyelocytes but does not include bands. Percent differential counts (%) should be interpreted in the context of the absolute cell counts (cells/UL). Interpretation and review of laboratory results Abnormal [facility] Lymphocytes (Bld) [#/Vol] 4.75 10*3/uL [facility] Lymphocytes/100 WBC (Bld) 36 % 13.0 - 44.0 % [facility] MCH (RBC) [Entitic mass] 26.6 pg 26.0 - 34.0 pg [facility] MCHC (RBC) [Mass/Vol] 30.7 g/dL Low 32.0 - 36.0 g/dL [facility] MCV (RBC) [Entitic vol] 87 fL 80 - 100 fL [facility] Monocytes (Bld) [#/Vol] 0.79 10*3/uL [facility] Monocytes/100 WBC (Bld) 6 % 2.0 - 10.0 % [facility] Neutrophils (Bld) [#/Vol] 6.86 10*3/uL [facility] Comment on above: Percent differential counts (%) should be interpreted in the context of the absolute cell counts (cells/uL). Neutrophils/100 WBC (Bld) 52 % 40.0 - 80.0 % [facility] Nucleated RBC/100 WBC (Bld) [Ratio] 0 % [facility] Platelets (Bld) [#/Vol] 501 10*3/uL High [facility] RBC (Bld) [#/Vol] 4.58 10*6/uL [facility] WBC (Bld) [#/Vol] 13.2 10*3/uL High [facility] Basophils (Bld) [#/Vol] 0.08 x10*3/uL Normal 0.00-0.10 [facility] Comment on above: Performed By: #### 5 7021-8 ####JANETH Galo ([id number])[facility] ([facility])[address] [place] [address] Basophils/100 WBC (Bld) 0.6 % Normal 0.0-2.0 [facility] Comment on above: Performed By: #### 5 7021-8 ####JANETH Galo ([id number])[facility] ([facility])[id number] [place] [address] Eosinophils (Bld) [#/Vol] 0.68 x10*3/uL Normal 0.00-0.70 [facility] Comment on above: Performed By: #### 5 7021-8 ####JANETH Galo ([id number])[facility] ([facility])[id number] [place] [address] Eosinophils/100 WBC (Bld) 5.2 % Normal 0.0-6.0 [facility] Comment on above: Performed By: #### 5 7021-8 ####JANETH Galo ([id number])[facility] ([facility])[address] [place] [address] Erythrocyte distribution width (RBC) [Ratio] 17.1 % High 11.5-14.5 [facility] Comment on above: Performed By: #### 5 7021-8 ####JANETH Galo ([id number])[facility] ([facility])[address] [place] [address] Hematocrit (Bld) [Volume fraction] 39.7 % Normal 36.0-46.0 [facility] Comment on above: Performed By: #### 5 7021-8 ####JANETH Galo ([id number])[facility] ([facility])[id number] [place] [address] Hemoglobin (Bld) [Mass/Vol] 12.2 g/dL Normal 12.0-16.0 [facility] Comment on above: Performed By: #### 5 7021-8 ####JANETH Galo ([id number])[facility] ([facility])[address] [place] [address] Immature granulocytes (Bld) [#/Vol] 0.03 x10*3/uL Normal 0.00-0.70 [facility] Comment on above: Performed By: #### 5 7021-8 ####JANETH Galo ([id number])[facility] ([facility])[address] [place] [address] Immature granulocytes/100 WBC (Bld) 0.2 % Normal 0.0-0.9 [facility] Comment on above: Result Comment: Catrachita ture Granulocyte Count (IG) includes promyelocytes, myelocytes and metamyelocytes but does not include bands. Percent differential counts (%) should be interpreted in the context of the absolute cell counts (cells/UL). Performed By: #### 5 7021-8 ####JANETH Galo ([id number])[facility] ([facility])[address] [place] [address] Lymphocytes (Bld) [#/Vol] 4.75 x10*3/uL Normal 1.20-4.80 [facility] Comment on above: Performed By: #### 5 7021-8 ####JANETH Galo ([id number])[facility] ([facility])[address] [place] [address] Lymphocytes/100 WBC (Bld) 36.0 % Normal 13.0-44.0 [facility] Comment on above: Performed By: #### 5 7021-8 ####JANETH Galo ([id number])[facility] ([facility])[address] [place] [address] MCH (RBC) [Entitic mass] 26.6 pg Normal 26.0-34.0 [facility] Comment on above: Performed By: #### 5 7021-8 ####JANETH Galo ([id number])[facility] ([facility])[address] [place] [address] MCHC (RBC) [Mass/Vol] 30.7 g/dL Low 32.0-36.0 [facility] Comment on above: Performed By: #### 5 7021-8 ####JANETH Galo ([id number])[facility] ([facility])[address] [place] [address] MCV (RBC) [Entitic vol] 87 fL Normal 80-100 [facility] Comment on above: Performed By: #### 5 7021-8 ####JANETH Galo ([id number])[facility] ([facility])[address] [place] [address] Monocytes (Bld) [#/Vol] 0.79 x10*3/uL Normal 0.10-1.00 [facility] Comment on above: Performed By: #### 5 7021-8 ####JANETH Galo ([id number])[facility] ([facility])[address] [place] [address] Monocytes/100 WBC (Bld) 6.0 % Normal 2.0-10.0 [facility] Comment on above: Performed By: #### 5 7021-8 ####JANETH Glao ([id number])[facility] ([facility])[address] [place] [address] Neutrophils (Bld) [#/Vol] 6.86 x10*3/uL Normal 1.20-7.70 [facility] Comment on above: Result Comment: Perc ent differential counts (%) should be interpreted in the context of the absolute cell counts (cells/uL). Performed By: #### 5 7021-8 ####JANETH Galo ([id number])[facility] ([facility])[address] [place] [address] Neutrophils/100 WBC (Bld) 52.0 % Normal 40.0-80.0 [facility] Comment on above: Performed By: #### 5 7021-8 ####JANETH Galo ([id number])[facility] ([facility])[address] [place] [address] Nucleated RBC/100 WBC (Bld) [Ratio] 0.0 /100 WBCs Normal 0.0-0.0 [facility] Comment on above: Performed By: #### 5 7021-8 ####JANETH Galo ([id number])[facility] ([facility])[address] [place] [address] Platelets (Bld) [#/Vol] 501 x10*3/uL High 150-450 [facility] Comment on above: Performed By: #### 5 7021-8 ####JANETH RANGELER L ([id number])[facility] ([facility])[address] [place] [address] RBC (Bld) [#/Vol] 4.58 x10*6/uL Normal 4.00-5.20 [facility] Comment on above: Performed By: #### 5 7021-8 ####JANETH CONNORMOTZER L ([id number])[facility] ([facility])[address] [place] [address] WBC (Bld) [#/Vol] 13.2 x10*3/uL High 4.4-11.3 [facility] Comment on above: Performed By: #### 5 7021-8 ####JANETH Galo ([id number])[facility] ([facility])[id number] [place] [address] TIBIA FIBULA RIGHT WO IV CONTRASTon 03-11-2024 CT TIBIA FIBULA RIGHT WO IV CONTRAST Normal [facility] Choriogonadotropin.beta subu niton 03-11-2024 HCG.beta subunit Qn m[IU]/mL Normal <5 [facility] Comment on above: Order Comment: Total HCG measurement is performed using the Siemens Atellica immunoassay which detects intact HCG and free beta HCG subunit. This test is not indicated for use as a tumor marker. HCG testing is performed using a different test methodology at [facility] than other [facility]. Direct result comparison should only be made within the same method. Performed By: #### 2 1198-7 ####JANETH Galo ([id number])[facility] ([facility])[address] [place] [address] ESR Westergren method (Bld) [Velocity]on 03-11-2024 ESR (Bld) [Velocity] 52 mm/h High 0 - 30 mm/h [facility] Interpretation and review of laboratory results Abnormal [facility] ESR (Bld) [Velocity] 52 mm/h High 0-30 [facility] Comment on above: Performed By: #### 4 537-7 ####JANETH Galo ([id number])[facility] ([facility])[address] [place], [place] [address] HCG.beta subunit Qnon 2024 Interpretation and review of laboratory results Normal [facility] Total HCG measuremen t is performed using the Siemens SolairedirectllNutraspace immunoassay which detects intact HCG and free beta HCG subunit. This test is not indicated for use as a tumor marker. HCG testing is performed using a different test methodology at [facility] than other [facility]. Direct result comparison should only be made within the same method. [facility] No Panel Informationon 03-11 [facility] Interpretation and review of laboratory results Abnormal [facility] PT and aPTT panel Coag (PPP) on 03-11-2024 aPTT Coag (PPP) [Time] 44 s High [facility] INR Coag (PPP) [Relative time] 1 {INR} 0.9 - 1.1 [facility] Interpretation and review of laboratory results Abnormal [facility] PT Coag (PPP) [Time] 10.8 s [facility] The APTT is no longe r used for monitoring Unfractionated Heparin Therapy. For monitoring Heparin Therapy, use the Heparin Assay. [facility] aPTT Coag (PPP) [Time] 44 s High 27-38 [facility] Comment on above: Order Comment: The A PTT is no longer used for monitoring Unfractionated Heparin Therapy. For monitoring Heparin Therapy, use the Heparin Assay. Performed By: #### 3 4529-8 ####JANETH Galo ([id number])[facility] ([facility])[address] [place] [address] INR Coag (PPP) [Relative time] 1.0 Normal 0.9-1.1 [facility] Comment on above: Order Comment: The A PTT is no longer used for monitoring Unfractionated Heparin Therapy. For monitoring Heparin Therapy, use the Heparin Assay. Performed By: #### 3 4529-8 ####JANETH Galo ([id number])[facility] ([facility])[address] [place] [address] PT Coag (PPP) [Time] 10.8 s Normal 9.8-12.8 [facility] Comment on above: Order Comment: The A PTT is no longer used for monitoring Unfractionated Heparin Therapy. For monitoring Heparin Therapy, use the Heparin Assay. Performed By: #### 3 4529-8 ####JANETH Galo ([id number])[facility] ([facility])[address] [place] [address] XR CHEST 1 VIEWon 03-11-2024 XR CHEST 1 VIEW Normal [facility] XR Chest Single viewon 03-11 Radiology Study observation (narrative) [facility] Work Phone: hCG, quantitative, on 03-11-2024 HCG.beta subunit Qn NINF [facility] [place] 02-03-2024 CNPN Telephone (TAVARES) ----- DEIDRA DE LA CRUZ ([id number]) 1970 F Date Time Provider Department 02/03/24 BIJAN ELMORE During your visit today, we recorded the following information about you: Carlo Miranda LPN 02/03/2024 1:49 PM Signed Received orders from lopez. Placed in provider's inbox for review. Route to ID fax Allergies As of Date: 02/03/2024 Noted Allergy Reaction PENICILLIN 06/05/2015 16 - Unknown Date Reviewed: 11/18/2023 Reviewed by: Carlo Miranda LPN - Fully Assessed Reason for Visit: Orders [211] Cmt: lopez Prescriptions as of 02/03/2024 - [...] Encounter Status:Closed by CARLO MIRANDA on 02/03/24 [facility] [place] 01-27-2024 BRITNEY Telephone (TAVARES) ----- DEIDRA DE LA CRUZ ([id number]) 1970 F Date Time Provider Department 01/27/24 [...] Status:Closed by CARLO MIRANDA on 01/27/24 Normal [facility] No Panel Informationon 01-14 [facility] Renal function 2000 panelon 01-15-2024 Albumin BCP dye [Mass/Vol] 3.1 g/dL Low 3.4 - 5.0 g/dL [facility] Anion gap [Moles/Vol] 12 mmol/L 10 - 2 0 mmol/L [facility] Calcium [Mass/Vol] 9 mg/dL 8.6 - 10. 6 mg/dL [facility] Chloride [Moles/Vol] 103 mmol/L 98 - 10 7 mmol/L [facility] CO2 [Moles/Vol] 30 mmol/L 21 - 32 mmol/L [facility] Creatinine [Mass/Vol] 0.78 mg/dL 0.50 - 1.05 mg/dL [facility] eGFR - PINF [facility] Comment on above: Calculations of bill mated GFR are performed using the 2020 CKD-EPI Study Refit equation without the race variable for the IDMS-Traceable creatinine methods. https://jasn.asnjournals.org/content/early/ASN.449125 4590 Glucose [Mass/Vol] 129 mg/dL High 74 - 99 mg/dL [facility] Interpretation and review of laboratory results Abnormal [facility] Phosphate [Mass/Vol] 4.2 mg/dL 2.5 - 4 .9 mg/dL [facility] Comment on above: MILD HEMOLYSIS DETEC ROSANNA. [...] [Moles/Vol] 4.2 mmol/L 3.5 - 5.3 mmol/L [facility] Comment on above: MILD HEMOLYSIS DETEC ROSANNA. The result may be falsely elevated due to hemolysis or other interferents. Clinical correlation is recommended. Repeat testing may be considered. Sodium [Moles/Vol] 141 mmol/L 136 - 145 mmol/L [facility] Urea nitrogen [Mass/Vol] 12 mg/dL 6 - 23 mg/dL [facility] Albumin BCP dye [Mass/Vol] 3.1 g/dL Low 3.4-5.0 [facility] Comment on above: Performed By: #### 2 4362-6 ####JANETH Galo ([id number])[facility] ([facility])[address] [place] [address] Anion gap [Moles/Vol] 12 mmol/L Normal 10-20 [facility] Comment on above: Performed By: #### 2 4362-6 ####JANETH Galo ([id number])[facility] ([facility])[address] [place] [address] Calcium [Mass/Vol] 9.0 mg/dL Normal 8.6-10.6 [facility] Comment on above: Performed By: #### 2 4362-6 ####JANETH Galo ([id number])[facility] ([facility])[address] [place] [address] Chloride [Moles/Vol] 103 mmol/L Normal 98-107 [facility] Comment on above: Performed By: #### 2 4362-6 ####JANETH Galo ([id number])[facility] ([facility])[address] [place] [address] CO2 [Moles/Vol] 30 mmol/L Normal 21-32 [facility] Comment on above: Performed By: #### 2 4362-6 ####JANETH Galo ([id number])[facility] ([facility])[address] [place] [address] Creatinine [Mass/Vol] 0.78 mg/dL Normal 0.50-1.05 [facility] Comment on above: Performed By: #### 2 4362-6 ####JANETH Galo ([id number])[facility] ([facility])[address] [place] [address] GFR/1.73 sq M.predicted MDRD (S/P/Bld) [Vol rate/Area] mL/min/{1.73_m2} Normal >60 [facility] Comment on above: Result Comment: Calc ulations of estimated GFR are performed using the 2020 CKD-EPI Study Refit equation without the race variable for the IDMS-Traceable creatinine methods.https://jasn.asnjournals.org/content/early/ N.8474259586 Performed By: #### 2 4362-6 ####JANETH Galo ([id number])[facility] ([facility])[address] [place] [address] Glucose [Mass/Vol] 129 mg/dL High 74-99 [facility] Comment on above: Performed By: #### 2 4362-6 ####JANETH Galo ([id number])[facility] ([facility])[address] [place] [address] Phosphate [Mass/Vol] 4.2 mg/dL Normal 2.5-4.9 [facility] Comment on above: Result Comment: MILD HEMOLYSIS [...] Performed By: #### 2 4362-6 ####JANETH Galo ([id number])[facility] ([facility])[address] [place] [address] Potassium [Moles/Vol] 4.2 mmol/L Normal 3.5-5.3 [facility] Comment on above: Result Comment: MILD HEMOLYSIS DETECTED. The result may be falsely elevated due to hemolysis or other interferents. Clinical correlation is recommended. Repeat testing may be considered. Performed By: #### 2 4362-6 ####JANETH Galo ([id number])[facility] ([facility])[address] [facility] [place] [address] Sodium [Moles/Vol] 141 mmol/L Normal 136-145 [facility] Comment on above: Performed By: #### 2 4362-6 ####JANETH Galo ([id number])[facility] ([facility])[address] [place] [address] Urea nitrogen [Mass/Vol] 12 mg/dL Normal 6-23 [facility] Comment on above: Performed By: #### 2 4362-6 ####JANETH Galo ([id number])[facility] ([facility])[address] [place] [address] Vancomycinon 01-15-2024 Vancomycin [Mass/Vol] 17.2 ug/mL 5.0 - 20.0 ug/mL [facility] Vancomycin [Mass/Vol] 17.2 ug/mL Normal 5.0-20.0 [facility] Comment on above: Order Comment: Vanco [...] Performed By: #### 2 0578-1 ####JANETH Galo ([id number])[facility] ([facility])[address] [place] [address] Vancomycin [Mass/Vol]on 12-19 Interpretation and review of laboratory results Normal [facility] Vancomycin levels can be monitored according to [...] 30.0-40.0 ug/mL Trough (all ages): 10.0-20.0 ug/mL [facility] MRSA isol Org specific cx Ql (Nose)Ordered By: Ketty Pierson on 01-13-2024 Interpretation and review of laboratory results Normal [facility] Staphylococcus sp identified Org specific cx Nom (Unsp spec) No Staphylococcus aureus isolated [facility] Vancomycinon 01-12-2024 Vancomycin [Mass/Vol] 13.6 ug/mL 5.0 - 20.0 ug/mL [facility] Vancomycin [Mass/Vol] 13.6 ug/mL Normal 5.0-20.0 [facility] Comment on above: Order Comment: Vanco [...] Performed By: #### 2 0578-1 ####JANETH Galo ([id number])[facility] ([facility])[address] [place] [address] Vancomycin [Mass/Vol]on 12-19 Interpretation and review of laboratory results Normal [facility] Vancomycin levels can be monitored according to [...] 30.0-40.0 ug/mL Trough (all ages): 10.0-20.0 ug/mL [facility] Bacteria identified Cx Nom ( Unsp spec)on 01-11-2024 Interpretation and review of laboratory results Abnormal [facility] Work Phone: Microscopic observation Gram stain Nom (Unsp spec) No polymorphonuclear leukocytes seen Abnormal [facility] Work Phone: Microscopic observation Gram stain Nom (Unsp spec) Positive Abnormal [facility] Work Phone: [facility] Work Phone: Interpretation and review of laboratory results Abnormal [facility] Work Phone: Microscopic observation Gram stain Nom (Unsp spec) (2+) Few Polymorphonuclear leukocytes [facility] Work Phone: Microscopic observation Gram stain Nom (Unsp spec) No organisms seen [facility] Work Phone: [facility] Work Phone: Interpretation and review of laboratory results Abnormal [facility] Work Phone: Microscopic observation Gram stain Nom (Unsp spec) (1+) Rare Polymorphonuclear leukocytes [facility] Work Phone: Microscopic observation Gram stain Nom (Unsp spec) No organisms seen [facility] Work Phone: [facility] Work Phone: Interpretation and review of laboratory results Abnormal [facility] Work Phone: Microscopic observation Gram stain Nom (Unsp spec) (3+) Moderate Polymorphonuclear leukocytes [facility] Work Phone: Microscopic observation Gram stain Nom (Unsp spec) No organisms seen [facility] Work Phone: [facility] Work Phone: Bacteria identified Cx Nom ( Unsp spec)Ordered By: Linda Campos on 01-11-2024 Interpretation and review of laboratory results Abnormal [facility] Microscopic observation Gram stain Nom (Unsp spec) (2+) Few Polymorphonuclear leukocytes [facility] Microscopic observation Gram stain Nom (Unsp spec) No organisms seen [facility] Bedside PICC Imagingon 01-10 These images are not reportable by radiology and will not be interpreted by Radiologists. IMAGING PICC >5 YR BEDSIDE IMAGINGon 01-11-2024 PICC >5 YR BEDSIDE IMAGING These images are not reportable by radiology and will not be interpreted by Radiologists. Normal [facility] Staphylococcus aureus.methic illin resistant isolateon 01-11-2024 MRSA isol Org specific cx Ql (Nose) Normal [facility] Comment on above: Performed By: #### 5 2969-3 ####JANETH Galo ([id number])[facility] ([facility])[address] [place] [address] Tissue/Wound Culture/Smearon 01-11-2024 Bacteria identified Cx Nom (Unsp spec) (1+) Rare Staphylococcus aureus Abnormal [facility] Work Phone: Comment on above: For antibiotic susce ptibility results see Specimen # - [id number] Bacteria identified Cx Nom (Unsp spec) (1+) Rare Staphylococcus aureus Abnormal [facility] Work Phone: Comment on above: For antibiotic susce ptibility results see Specimen # - [id number] Bacteria identified Cx Nom (Unsp spec) (2+) Few Methicillin Resistant Staphylococcus aureus (MRSA) Abnormal [facility] Work Phone: Comment on above: Methicillin (Oxacill in) resistant Staphylococci are resistant to all currently available Penicillins, Beta-lactam/Beta-lactamase inhibitor combinations (including Ampicillin/Sulbactam, Amoxicillin/Clavulanate and Pipercillin/Tazobactam), Carbapenems and Cephalosporins (except Ceftaroline). Bacteria identified Cx Nom (Unsp spec) (3+) Moderate Staphylococcus aureus Abnormal [facility] Work Phone: Comment on above: For antibiotic susce ptibility results see Specimen # - [id number] Tissue/Wound Culture/SmearOr dered By: Linda Campos on 01-11-2024 Bacteria identified Cx Nom (Unsp spec) (2+) Few Staphylococcus aureus Abnormal [facility] Comment on above: For antibiotic susce ptibility results see Specimen # - [id number] Basic metabolic 2000 panelon 01-10-2024 Anion gap [Moles/Vol] 13 mmol/L 10 - 2 0 mmol/L [facility] Calcium [Mass/Vol] 9 mg/dL 8.6 - 10. 6 mg/dL [facility] Chloride [Moles/Vol] 102 mmol/L 98 - 10 7 mmol/L [facility] CO2 [Moles/Vol] 28 mmol/L 21 - 32 mmol/L [facility] Creatinine [Mass/Vol] 0.81 mg/dL 0.50 - 1.05 mg/dL [facility] GFR/1.73 sq M.predicted among non-blacks MDRD (S/P/Bld) [Vol rate/Area] 88 mL/min/{1.73_m2} - PINF [facility] Comment on above: Calculations of bill mated GFR are performed using the 2020 CKD-EPI Study Refit equation without the race variable for the IDMS-Traceable creatinine methods. https://jasn.asnjournals.org/content///ASN.544380 1269 Glucose [Mass/Vol] 96 mg/dL 74 - 99 mg/dL [facility] Potassium [Moles/Vol] 4.3 mmol/L 3.5 - 5.3 mmol/L [facility] Sodium [Moles/Vol] 139 mmol/L 136 - 145 mmol/L [facility] Urea nitrogen [Mass/Vol] 16 mg/dL 6 - 23 mg/dL [facility] Anion gap [Moles/Vol] 13 mmol/L Normal 10-20 [facility] Comment on above: Performed By: #### 2 4321-2 ####JANETH Galo ([id number])[facility] ([facility])[address] [place] [address] Calcium [Mass/Vol] 9.0 mg/dL Normal 8.6-10.6 [facility] Comment on above: Performed By: #### 2 4321-2 ####JANETH RANGELER L ([id number])[facility] ([facility])[address] [place] [address] Chloride [Moles/Vol] 102 mmol/L Normal 98-107 [facility] Comment on above: Performed By: #### 2 4321-2 ####JANETH CONNORMOTZER L ([id number])[facility] ([facility])[address] [place] [address] CO2 [Moles/Vol] 28 mmol/L Normal 21-32 [facility] Comment on above: Performed By: #### 2 4321-2 ####JANETH RANGELER L ([id number])[facility] ([facility])[address] [place] [address] Creatinine [Mass/Vol] 0.81 mg/dL Normal 0.50-1.05 [facility] Comment on above: Performed By: #### 2 1-2 ####JANETH MCDONALDTZER L ([id number])[facility] ([facility])[address] [place] [address] Glomerular filtration rate/1.73 sq M.predicted 88 mL/min/1.73m*2 Normal >60 [facility] Comment on above: Result Comment: Calc ulations of estimated GFR are performed using the 2020 CKD-EPI Study Refit equation without the race variable for the IDMS-Traceable creatinine methods.https://jasn.asnjournals.org/content// N.6872904720 Performed By: #### 2 4321-2 ####JANETH RANGELER L ([id number])[facility] ([facility])[address] [place] [address] Glucose [Mass/Vol] 96 mg/dL Normal 74-99 [facility] Comment on above: Performed By: #### 2 4321-2 ####JANETH CONNORMOTZER L ([id number])[facility] ([facility])[address] [place] [address] Potassium [Moles/Vol] 4.3 mmol/L Normal 3.5-5.3 [facility] Comment on above: Performed By: #### 2 4321-2 ####JANETH Galo ([id number])[facility] ([facility])[address] [place] [address] Sodium [Moles/Vol] 139 mmol/L Normal 136-145 [facility] Comment on above: Performed By: #### 2 4321-2 ####JANETH Galo ([id number])[facility] ([facility])[address] [place] [address] Urea nitrogen [Mass/Vol] 16 mg/dL Normal - [facility] Comment on above: Performed By: #### 2 4321-2 ####JANETH Galo ([id number])[facility] ([facility])[address] [place] [address] CBC panel Auto (Bld)on 01-09 Erythrocyte distribution width (RBC) [Ratio] 15.8 % High 11.5 - 14.5 % [facility] Hematocrit (Bld) [Volume fraction] 36.5 % 36.0 - 46.0 % [facility] Hemoglobin (Bld) [Mass/Vol] 11.2 g/dL Low 12.0 - 16.0 g/dL [facility] Interpretation and review of laboratory results Abnormal [facility] MCH (RBC) [Entitic mass] 26.9 pg 26.0 - 34.0 pg [facility] MCHC (RBC) [Mass/Vol] 30.7 g/dL Low 32.0 - 36.0 g/dL [facility] MCV (RBC) [Entitic vol] 88 fL 80 - 100 fL [facility] Nucleated RBC/100 WBC (Bld) [Ratio] 0 % [facility] Platelets (Bld) [#/Vol] 507 10*3/uL [facility] RBC (Bld) [#/Vol] 4.17 10*6/uL [facility] WBC (Bld) [#/Vol] 21.2 10*3/uL [facility] Erythrocyte distribution width (RBC) [Ratio] 15.8 % High 11.5-14.5 [facility] Comment on above: Performed By: #### 5 8410-2 ####JANETH Galo ([id number])[facility] ([facility])[address] [place] [address] Hematocrit (Bld) [Volume fraction] 36.5 % Normal 36.0-46.0 [facility] Comment on above: Performed By: #### 5 8410-2 ####JANETH Galo ([id number])[facility] ([facility])[address] [place] [address] Hemoglobin (Bld) [Mass/Vol] 11.2 g/dL Low 12.0-16.0 [facility] Comment on above: Performed By: #### 5 8410-2 ####JANETH Galo ([id number])[facility] ([facility])[address] [place] [address] MCH (RBC) [Entitic mass] 26.9 pg Normal 26.0-34.0 [facility] Comment on above: Performed By: #### 5 8410-2 ####JANETH Galo ([id number])[facility] ([facility])[address] [place] [address] MCHC (RBC) [Mass/Vol] 30.7 g/dL Low 32.0-36.0 [facility] Comment on above: Performed By: #### 5 8410-2 ####JANETH Galo ([id number])[facility] ([facility])[address] [place] [address] MCV (RBC) [Entitic vol] 88 fL Normal 80-100 [facility] Comment on above: Performed By: #### 5 8410-2 ####JANETH Galo ([id number])[facility] ([facility])[address] [place] [address] Nucleated RBC/100 WBC (Bld) [Ratio] 0.0 /100 WBCs Normal 0.0-0.0 [facility] Comment on above: Performed By: #### 5 8410-2 ####JANETH GRAFF L ([id number])[facility] ([facility])[address] [place] [address] Platelets (Bld) [#/Vol] 507 x10*3/uL High 150-450 [facility] Comment on above: Performed By: #### 5 8410-2 ####JANETH GRAFF L ([id number])[facility] ([facility])[address] [place] [address] RBC (Bld) [#/Vol] 4.17 x10*6/uL Normal 4.00-5.20 [facility] Comment on above: Performed By: #### 5 8410-2 ####JANETH GRAFF L ([id number])[facility] ([facility])[address] [place] [address] WBC (Bld) [#/Vol] 21.2 x10*3/uL High 4.4-11.3 [facility] Comment on above: Performed By: #### 5 8410-2 ####JANETH GRAFF L ([id number])[facility] ([facility])[address] [place] [address] ECG 12-LEADon 01-10-2024 ECG 12-LEAD Ventricular Rate 79 Atrial Rate 79 P-R Interval 144 QRS Duration 88 Q-T Interval 404 QTC Calculation(Bazett) 463 P Lulu 49 R Lulu 20 T Lulu 17 QRS Count 13 Q Onset 214 P Onset 142 P Offset 197 T Offset 416 QTC Fredericia 443 Diagnosis Normal sinus rhythm Normal ECG No previous ECGs available Confirmed by Giancarlo Bonilla ([id number]) on 01/20/2024 10:17:05 PM Normal [facility] No Panel Informationon 01-09 Interpretation and review of laboratory results Normal [facility] Vancomycinon 01-10-2024 Vancomycin [Mass/Vol] 7.8 ug/mL 5.0 - 20.0 ug/mL [facility] Vancomycin [Mass/Vol] 7.8 ug/mL Normal 5.0-20.0 [facility] Comment on above: Order Comment: Vanco [...] Performed By: #### 2 0578-1 ####JANETH Galo ([id number])[facility] ([facility])[address] [place] [address] Vancomycin [Mass/Vol]on 12-19 Vancomycin levels can be [...] 30.0-40.0 ug/mL Trough (all ages): 10.0-20.0 ug/mL [facility] Bacteria identifiedon 2023 Bacteria identified Cx Nom (Unsp spec) [facility] Comment on above: Performed By: #### 6 463-4 ####JANETH Galo ([id number])[facility] ([facility])[address] [place] [address] Bacteria identified Cx Nom (Unsp spec) Abnormal [facility] Comment on above: Performed By: #### 6 463-4 ####JANETH Galo ([id number])[facility] ([facility])[address] [place] [address] Bacteria identified Cx Nom (Unsp spec) Abnormal [facility] Comment on above: Performed By: #### 6 463-4 ####JANETH Galo ([id number])[facility] ([facility])[address] [place] [address] Bacteria identified Cx Nom (Unsp spec) Abnormal [facility] Comment on above: Performed By: #### 6 463-4 ####JANETH Galo ([id number])[facility] ([facility])[address] [place] [address] Bacteria identified Cx Nom (Unsp spec) [facility] Comment on above: Performed By: #### 6 463-4 ####JANETH Galo ([id number])[facility] ([facility])[address] [place] [address] FL FLUORO IMAGES NO CHARGEon 01-09-2024 FL FLUORO IMAGES NO CHARGE These images are not reportable by radiology and will not be interpreted by Radiologists. [facility] Fungus identifiedon 01-09-20 Fungus identified Cx Nom (Unsp spec) [facility] Comment on above: Performed By: #### 5 80-1 ####JANETH Galo ([id number])[facility] ([facility])[address] [place] [address] Fungus identified Cx Nom (Unsp spec) [facility] Comment on above: Performed By: #### 5 80-1 ####JANETH Galo ([id number])[facility] ([facility])[address] [place] [address] Fungus identified Cx Nom (Unsp spec) [facility] Comment on above: Performed By: #### 5 80-1 ####JANETH Galo ([id number])[facility] ([facility])[id number] [place] [address] Fungus identified Cx Nom (Unsp spec) [facility] Comment on above: Performed By: #### 5 80-1 ####JANETH Galo ([id number])[facility] ([facility])[address] [place] [address] Fungus identified Cx Nom (Unsp spec) Normal [facility] Comment on above: Performed By: #### 5 80-1 ####JANETH Galo ([id number])[facility] ([facility])[id number] [place] [address] Renal function 2000 panelon 01-09-2024 Albumin BCP dye [Mass/Vol] 3.8 g/dL 3.4 - 5.0 g/dL [facility] Anion gap [Moles/Vol] 13 mmol/L 10 - 2 0 mmol/L [facility] Calcium [Mass/Vol] 9 mg/dL 8.6 - 10. 6 mg/dL [facility] Chloride [Moles/Vol] 100 mmol/L 98 - 10 7 mmol/L [facility] CO2 [Moles/Vol] 30 mmol/L 21 - 32 mmol/L [facility] Creatinine [Mass/Vol] 0.84 mg/dL 0.50 - 1.05 mg/dL [facility] GFR/1.73 sq M.predicted among non-blacks MDRD (S/P/Bld) [Vol rate/Area] 84 mL/min/{1.73_m2} - PINF [facility] Comment on above: Calculations of bill mated GFR are performed using the 2020 CKD-EPI Study Refit equation without the race variable for the IDMS-Traceable creatinine methods. https://jasn.asnjournals.org/content//ASN.518793 9211 Glucose [Mass/Vol] 127 mg/dL High 74 - 99 mg/dL [facility] Interpretation and review of laboratory results Abnormal [facility] Phosphate [Mass/Vol] 4.1 mg/dL 2.5 - 4 .9 mg/dL [facility] Comment on above: The performance lucia acteristics of phosphorus testing in heparinized plasma have been validated by the individual laboratory site where testing is performed. Testing on heparinized plasma is not approved by the FDA; however, such approval is not necessary. Potassium [Moles/Vol] 5.1 mmol/L 3.5 - 5.3 mmol/L [facility] Sodium [Moles/Vol] 138 mmol/L 136 - 145 mmol/L [facility] Urea nitrogen [Mass/Vol] 12 mg/dL 6 - 23 mg/dL [facility] Albumin BCP dye [Mass/Vol] 3.8 g/dL Normal 3.4-5.0 [facility] Comment on above: Performed By: #### 2 4362-6 ####JANETH Galo ([id number])[facility] ([facility])[address] [place] [address] Anion gap [Moles/Vol] 13 mmol/L Normal 10-20 [facility] Comment on above: Performed By: #### 2 4362-6 ####JANETH Galo ([id number])[facility] ([facility])[address] [place] [address] Calcium [Mass/Vol] 9.0 mg/dL Normal 8.6-10.6 [facility] Comment on above: Performed By: #### 2 4362-6 ####JANETH Galo ([id number])[facility] ([facility])[address] [place] [address] Chloride [Moles/Vol] 100 mmol/L Normal 98-107 [facility] Comment on above: Performed By: #### 2 4362-6 ####JANETH Galo ([id number])[facility] ([facility])[address] [place] [address] CO2 [Moles/Vol] 30 mmol/L Normal 21-32 [facility] Comment on above: Performed By: #### 2 4362-6 ####JANETH Galo ([id number])[facility] ([facility])[address] [place] [address] Creatinine [Mass/Vol] 0.84 mg/dL Normal 0.50-1.05 [facility] Comment on above: Performed By: #### 2 4362-6 ####JANETH Galo ([id number])[facility] ([facility])[address] [place] [address] Glomerular filtration rate/1.73 sq M.predicted 84 mL/min/1.73m*2 Normal >60 [facility] Comment on above: Result Comment: Calc ulations of estimated GFR are performed using the 2020 CKD-EPI Study Refit equation without the race variable for the IDMS-Traceable creatinine methods.https://jasn.asnjournals.org/content// N.4604794793 Performed By: #### 2 4362-6 ####JANETH Galo ([id number])[facility] ([facility])[address] [place] [address] Glucose [Mass/Vol] 127 mg/dL High 74-99 [facility] Comment on above: Performed By: #### 2 4362-6 ####JANETH Galo ([id number])[facility] ([facility])[address] [place] [address] Phosphate [Mass/Vol] 4.1 mg/dL Normal 2.5-4.9 [facility] Comment on above: Result Comment: The performance characteristics of phosphorus testing in heparinized plasma have been validated by the individual laboratory site where testing is performed. Testing on heparinized plasma is not approved by the FDA; however, such approval is not necessary. Performed By: #### 2 4362-6 ####JANETH Galo ([id number])[facility] ([facility])[address] [place] [address] Potassium [Moles/Vol] 5.1 mmol/L Normal 3.5-5.3 [facility] Comment on above: Performed By: #### 2 4362-6 ####JANETH Galo ([id number])[facility] ([facility])[address] [place] [address] Sodium [Moles/Vol] 138 mmol/L Normal 136-145 [facility] Comment on above: Performed By: #### 2 4362-6 ####JANETH Galo ([id number])[facility] ([facility])[address] [place] [address] Urea nitrogen [Mass/Vol] 12 mg/dL Normal 6-23 [facility] Comment on above: Performed By: #### 2 4362-6 ####JANETH Galo ([id number])[facility] ([facility])[address] [place] [address] VERAB/VERIFY ABORHon 024 ABO group Nom (Bld) A Normal [facility] Comment on above: Order Comment: Thi s is for confirming/verifying history of ABORh on file for transfusion of blood products. If this is not for transfusion, please order an ABO/RH [COD684]. If you have any questions or unsure what to order, please call the blood bank. Performed By: #### V ERAB ####JANETH Galo ([id number])[facility] ([facility])[address] [place] [address] D Ag Ql (Bld) Positive Normal [facility] Comment on above: Order Comment: Thi s is for confirming/verifying history of ABORh on file for transfusion of blood products. If this is not for transfusion, please order an ABO/RH [YZY580]. If you have any questions or unsure what to order, please call the blood bank. Performed By: #### V ERAB ####JANETH Galo ([id number])[facility] ([facility])[address] [place] [address] VERIFY ABO/Rh Group Teston 1 03-10-2023 ABO group Nom (Bld) A [facility] D Ag Ql (Bld) Positive [facility] XR tomography Unspecified reynaldo dy regionon 01-09-2024 These images are not reportable by radiology and will not be interpreted by Radiologists. IMAGING [facility] 12-31-2023 MALIN Telephone ([facility]) ----- DEIDRA DE LA CRUZ ([id number]) 1970 F Date Time Provider Department 12/31/23 [...] 5 THYROID STIMULATING HORMONE [SQTSH] Order #: [id number] FUTURE Prescriptions as of 12/31/2023 - levothyroxine [...] Status:Closed by KATIE TRIPATHI on 12/31/23 Normal [facility] Basic metabolic 2000 panelon 12-30-2023 Anion gap [Moles/Vol] 11 mmol/L Normal 10-20 [facility] Comment on above: Performed By: #### 2 4321-2 ####JANETH MCDONALDTZER L ([id number])[facility] ([facility])[address] [place] [address] Calcium [Mass/Vol] 9.1 mg/dL Normal 8.6-10.6 [facility] Comment on above: Performed By: #### 2 4321-2 ####JANETH SCHMOTZER L ([id number])[facility] ([facility])[address] [place] [address] Chloride [Moles/Vol] 101 mmol/L Normal 98-107 [facility] Comment on above: Performed By: #### 2 4321-2 ####JANETH SCHMOTZER L ([id number])[facility] ([facility])[address] [place] [address] CO2 [Moles/Vol] 30 mmol/L Normal 21-32 [facility] Comment on above: Performed By: #### 2 4321-2 ####JANETH SCHMOTZER L ([id number])[facility] ([facility])[address] [place] [address] Creatinine [Mass/Vol] 0.71 mg/dL Normal 0.50-1.05 [facility] Comment on above: Performed By: #### 2 4321-2 ####JANETH SCHMOTZER L ([id number])[facility] ([facility])[address] [place] [address] GFR/1.73 sq M.predicted MDRD (S/P/Bld) [Vol rate/Area] mL/min/{1.73_m2} Normal >60 [facility] Comment on above: Result Comment: Calc ulations of estimated GFR are performed using the 2020 CKD-EPI Study Refit equation without the race variable for the IDMS-Traceable creatinine methods.https://jasn.asnjournals.org/content/early// N.4589780147 Performed By: #### 2 4321-2 ####JANETH Galo ([id number])[facility] ([facility])[address] [place] [address] Glucose [Mass/Vol] 82 mg/dL Normal 74-99 [facility] Comment on above: Performed By: #### 2 4321-2 ####JANETH GRAFF L ([id number])[facility] ([facility])[address] [place] [address] Potassium [Moles/Vol] 5.4 mmol/L High 3.5-5.3 [facility] Comment on above: Performed By: #### 2 4321-2 ####JANETH GRAFF L ([id number])[facility] ([facility])[address] [place] [address] Sodium [Moles/Vol] 137 mmol/L Normal 136-145 [facility] Comment on above: Performed By: #### 2 4321-2 ####JANETH CONNORMOTZLETI L ([id number])[facility] ([facility])[address] [place] [address] Urea nitrogen [Mass/Vol] 13 mg/dL Normal 6-23 [facility] Comment on above: Performed By: #### 2 4321-2 ####JANETH GRAFF L ([id number])[facility] ([facility])[address] [place] [address] Blood type and Indirect anti body screen panel (Bld)on 12-30-2023 ABO group Nom (Bld) A Normal [facility] Comment on above: Performed By: #### 3 4532-2 ####JANETH Galo ([id number])[facility] ([facility])[address]24 [facility] [address] Blood group antibody screen Ql Negative [facility] Comment on above: Performed By: #### 3 4532-2 ####JANETH Galo ([id number])[facility] ([facility])[address] [facility] [address] D Ag Ql (Bld) Positive [facility] Comment on above: Result Comment: 2nd ABO test required. Order and Collect VERAB Performed By: #### 3 4532-2 ####JANETH Galo ([id number])[facility] ([facility])[address]43 [facility] [address] CBC panel Auto (Bld)on 12-29 Erythrocyte distribution width (RBC) [Ratio] 15.8 % High 11.5-14.5 [facility] Comment on above: Performed By: #### 5 8410-2 ####JANETH Galo ([id number])[facility] ([facility])[address] [place] [address] Hematocrit (Bld) [Volume fraction] 44.6 % Normal 36.0-46.0 [facility] Comment on above: Performed By: #### 5 8410-2 ####JANETH Galo ([id number])[facility] ([facility])[address] [place] [address] Hemoglobin (Bld) [Mass/Vol] 13.3 g/dL Normal 12.0-16.0 [facility] Comment on above: Performed By: #### 5 8410-2 ####JANETH Galo ([id number])[facility] ([facility])[address] [place] [address] MCH (RBC) [Entitic mass] 26.5 pg Normal 26.0-34.0 [facility] Comment on above: Performed By: #### 5 8410-2 ####JANETH Galo ([id number])[facility] ([facility])[address] [place] [address] MCHC (RBC) [Mass/Vol] 29.8 g/dL Low 32.0-36.0 [facility] Comment on above: Performed By: #### 5 8410-2 ####JANETH Galo (50296)[facility] ([facility])[address] [place] [address] MCV (RBC) [Entitic vol] 89 fL Normal 80-100 [facility] Comment on above: Performed By: #### 5 8410-2 ####JANETH Galo ([id number])[facility] ([facility])[address] [place] [address] Nucleated RBC/100 WBC (Bld) [Ratio] 0.0 /100 WBCs Normal 0.0-0.0 [facility] Comment on above: Performed By: #### 5 8410-2 ####JANETH Galo ([id number])[facility] ([facility])[address] [place] [address] Platelets (Bld) [#/Vol] 621 x10*3/uL High 150-450 [facility] Comment on above: Performed By: #### 5 8410-2 ####JANETH Galo ([id number])[facility] ([facility])[address] [place] [address] RBC (Bld) [#/Vol] 5.01 x10*6/uL Normal 4.00-5.20 [facility] Comment on above: Performed By: #### 5 8410-2 ####JANETH Galo ([id number])[facility] ([facility])[address] [place] [address] WBC (Bld) [#/Vol] 10.7 x10*3/uL Normal 4.4-11.3 [facility] Comment on above: Performed By: #### 5 8410-2 ####JANETH Galo ([id number])[facility] ([facility])[address] [place] [address] Staphylococcus aureus.methic illin resistant isolateon 12-30-2023 MRSA isol Org specific cx Ql (Nose) Abnormal [facility] Comment on above: Performed By: #### 5 2969-3 ####JANETH Galo ([id number])[facility] ([facility])[address] [place], [place] [address] TSH WITH REFLEX TO FREE T4 I F ABNORMALon 12-30-2023 TSH Qn 10.40 m[IU]/L High 0.44-3.98 [facility] Comment on above: Order Comment: TSH t esting is performed using different testing methodology at [facility] than at other [facility]. Direct result comparisons should only be made within the same method. Performed By: #### T HYDS ####JANETH Galo ([id number])[facility] ([facility])[address] [place], [place] [address] Thyroxine.freeon 12-30-2023 Free T4 [Mass/Vol] 0.76 ng/dL Low 0.78-1.48 [facility] Comment on above: Order Comment: Thyro xine Free testing is performed using different testing methodology at [facility] than at other [facility]. Direct result comparisons should only be made within the same method. Performed By: #### 3 024-7 ####JANETH Galo ([id number])[facility] ([facility])[address] [place] [address] ECHOon 12-17-2023 CONCLUSIONS: - Exam indication: murmur [...] * * * Final * * * [facility] Echocardiography Report: Transthoracic Echo [facility] Date of service: 12/17/2023 2:03:11 PM [...] septum. PERICARDIUM There is no pericardial effusion. [facility] Echocardiography Echocardiography Rep ort: Transthoracic Echo [facility] Date of service: 12/17/2023 2:03:11 PM Ordering physician: BIJAN ELMORE Indication: murmur Technologist: Beverly Manrique [facility] Interpreting physician: Kathryn Campos MD PATIENT: [...] * * Final * * * [facility] [employer] [facility] : [id number] 1.724SyngoDynamicsSISUID [facility] ([facility]) ----- DEIDRA DE LA CRUZ ([id number]) 1970 F Date Time Provider Department 12/15/23 BIJAN ELMORE During your visit today, we recorded the following information about you: Elsa Torres 12/15/2023 3:22 PM Signed Hina, with [facility], called on patient's behalf to request an order for a wheelchair. Said patient had purchased one on her on in the past, but it is no longer functioning. Please fax order and chart notes to: [employer] [phone] [facility] phone: [phone]/ Carlo Miranda LPN 12/15/2023 3:[address] order for wheelchair Cherly Araujo APRN.MALI 12/15/2023 5:02 PM Signed Rx for wheelchair placed in outbox, please fax with most recent office visit note Cheryl Araujo APRN.Carlo Ott LPN 12/15/2023 5:15 PM Addendum Fax sent to [phone] Allergies As of Date: 12/15/2023 Noted Allergy Reaction PENICILLIN 06/05/2015 16 - Unknown Date Reviewed: 11/18/2023 Reviewed by: Carlo Miranda LPN - Fully Assessed Reason for Visit: Order for wheelchair [Other] Primary Visit Diagnosis: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 INDICATION: Signs/Symptoms:traumatic arthritis; Signs/Symptoms:h/o tibial palteau fracture COMPARISON: None. ACCESSION NUMBER(S): [id number]; [id number] ORDERING CLINICIAN: CRUZ GOODMAN TECHNIQUE: Axial CT [...] bridging. MACRO: no (more content not included)... [facility] CT TIBIA FIBULA RIGHT WO IV CONTRASTon 12-15-2023 CT TIBIA FIBULA RIGHT WO IV CONTRAST Interpreted By: Adalberto Daley, STUDY: CT of the right knee and tibia and fibula intravenous contrast dated 12/15/2023. INDICATION: Signs/Symptoms:traumatic arthritis; Signs/Symptoms:h/o tibial palteau fracture COMPARISON: None. ACCESSION NUMBER(S): [id number]; [id number] ORDERING CLINICIAN: CRUZ GOODMAN TECHNIQUE: Axial CT of the right knee and tibia and fibula was performed without intravenous contrast. Sagittal and coronal two-dimensional reformats were obtained. FINDINGS: OSSEOUS STRUCTURES AND JOINTS: The bones are demineralized. No acute fracture or dislocation is evident. There is patella Kelly. There is marginal patellar osteophyte formation and [...] bridging. MACRO: no (more content not included)... [facility] 12-10-2023 [facility] Telephone ([facility]) ----- DEIDRA DE LA CRUZ ([id number]) 1970 F Date Time Provider Department 12/10/23 BIJAN ELMORE During your visit today, we recorded the following information about you: Elsa Torres 12/10/2023 11:22 AM Signed Patient said her clonazepam rx was incorrectly sent to [facility] mail order pharmacy. They told her it won't get to her for another 10 days. Wants to know if it can be switched to [facility] in [facility]. She would like a call back at [phone] when sent. Bijan Elmore MD 12/10/2023 12:04 PM Signed The following approved medication requests have been transmitted electronically. Requested Prescriptions Signed Prescriptions Disp Refills clonazePAM (KLONOPIN) 0.5 mg tablet 90 tablet 0 Sig: Take 1 tablet by mouth three times a day for 30 days. Authorizing Provider: BIJAN ELMORE MD Hummel, Megan, APRN.FOOD SERVICE WORKER 12/10/2023 1:04 PM Signed Medication sent to Francisco Javier Araujo APRN.FOOD SERVICE WORKER Carlo Miranda LPN 12/10/2023 1:11 PM Signed [...] Status:Closed by FRANCISCO ELMORE on 12/10/23 Normal [facility] C reactive proteinon 024 CRP [Mass/Vol] 3.77 mg/dL High <1.00 [facility] Comment on above: Performed By: #### 1 988-5 ####JANETH Galo ([id number])[facility] ([facility])[address] [place] [address] [place] [address] ESR Westergren method (Bld) [Velocity]on 12-01-2023 ESR (Bld) [Velocity] 55 mm/h High 0-30 [facility] Comment on above: Performed By: #### 4 537-7 ####JANETH Galo ([id number])[facility] ([facility])[address] [place], [place] [address] CNPSridevi 11-21-2023 CNPN Telephone ([facility]) ----- DEIDRA DE LA CRUZ ([id number]) 1970 F Date Time Provider Department 11/21/23 BIJAN ELMORE [facility] During your visit today, we recorded the following information about you: Costa Johnson LPN 11/21/2023 2:05 PM Signed Received 11/21/2023 from [employer]. Placed in provider's inbox for review. Route to ID for scanning. Allergies As of Date: 11/21/2023 Noted Allergy Reaction PENICILLIN 06/05/2015 16 - Unknown Date Reviewed: 11/18/2023 Reviewed by: Carlo Miranda LPN - Fully Assessed Reason for Visit: Received Outside Medical Records [[id number]] Cmt: [employer] Order for incontinence supplies [...] Encounter Status:Closed by COSTA JOHNSON on 11/21/23 [facility] CNOVon 11-18-2023 CNOV Office Visit ([facility] ) ----- DEIDRA DE LA CRUZ ([id number]) 1970 F Date Time Provider Department 11/18/23 [...] telephonic presence (more content not included)... Normal [facility] ECG COMPLETEon 11-18-2023 ECG COMPLETE Ventricular Rate : 7 8 BPM Atrial Rate : 78 BPM P-R Interval : 146 ms QRS Duration : 82 ms Q-T Interval : 388 ms QTC Calculation(Bazett) : 442 ms Calculated P Lulu : 37 degrees Calculated R Lulu : 36 degrees Calculated T Lulu : 21 degrees NORMAL SINUS RHYTHM NORMAL ECG NO PREVIOUS ECGS AVAILABLE Confirmed by FRANCISCO ALVARADO M.D. ([id number]) on 11/19/2023 4:28:43 PM NAME : DEIDRA DE LA CRUZ PID : [id number] : 1970 Gender : Female Race : ORD : [id number] Procedure Date : Nov 18 2023 10:19:49 Edit Date : Nov 19 2023 16:28:44 Diagnosis: NORMAL SINUS RHYTHM NORMAL ECG NO PREVIOUS ECGS AVAILABLE Confirmed by FRANCISCO ALVARADO M.D. ([id number]) on 11/19/2023 4:28:43 PM Test Reason : Location : [address] [place] [address] Overread By : FRANCISCO ALVARADO M.D. Edited By : FRANCISCO ALVARADO M.D. Referred By : SELF, Acquired by : CARLO MIRANDA Normal [facility] XR KNEE RIGHT 1-2 VIEWSon XR KNEE RIGHT 1-2 VIEWS Normal [facility] XR TIBIA FIBULA RIGHT 2 VIEW Son 08-25-2023 XR TIBIA FIBULA RIGHT 2 VIEWS [facility] CNPNon 08-19-2023 MAL[facility] Telephone ([facility] [employer]) ----- DEIDRA DE LA CRUZ ([id number]) 1970 F Date Time Provider Department 08/19/23 BIJAN ELMORE During your visit today, we recorded the following information about you: Carlo Miranda LPN 08/19/2023 3:20 PM Signed [facility] supply [facility] Placed in provider's inbox for review. Route to ID fax Carlo Miranda LPN 08/19/2023 5:49 PM Signed Fax sent Allergies As of Date: 08/19/2023 Noted Allergy Reaction PENICILLIN 06/05/2015 16 - Unknown Date Reviewed: 04/11/2023 Reviewed by: Costa Johnson LPN - Fully Assessed Reason for Visit: Orders [201] Cmt: [employer] Prescriptions as of 08/19/2023 [...] Status:Closed by CARLO MIRANDA on 08/19/23 Normal [facility] CT HIP LEFT WO IV CONTRASTon 07-07-2023 CT HIP LEFT WO IV CONTRAST Interpreted By: Adalberto Daley, STUDY: CT of the left hip without intravenous contrast dated 07/07/2023. INDICATION: Signs/Symptoms:pain COMPARISON: None. ACCESSION NUMBER(S): [id number] ORDERING CLINICIAN: CRUZ GOODMAN TECHNIQUE: Axial CT [...] Adalberto Daley 07/08/2023 1:10 PM Dictation workstation: [id number] [facility] XR HIP LEFT WITH PELVIS WHEN PERFORMED 2 OR 3 VIEWSon 06-12-2023 XR HIP LEFT WITH PELVIS WHEN PERFORMED 2 OR 3 VIEWS Interpreted By: Xuan Cardenas, STUDY: Single view pelvis. Left hip, two views. INDICATION: Signs/Symptoms:hip pain. COMPARISON: None. ACCESSION NUMBER(S): [id number] ORDERING CLINICIAN: CRUZ GOODMAN FINDINGS: No acute [...] Xuan Cardenas 06/13/2023 7:09 PM Dictation workstation: [id number] [facility] XR KNEE RIGHT 1-2 VIEWSon XR KNEE RIGHT 1-2 VIEWS Interpreted By: Xuan Cardenas, STUDY: Right tibia, two views Right knee, two views. INDICATION: Signs/Symptoms:injury. COMPARISON: None. ACCESSION NUMBER(S): [id number]; [id number] ORDERING CLINICIAN: CRUZ GOODMAN FINDINGS: Intramedullary nail [...] Xuan Cardenas 06/13/2023 7:12 PM Dictation workstation: [id number] [facility] XR TIBIA FIBULA RIGHT 2 VIEW Son 06-12-2023 XR TIBIA FIBULA RIGHT 2 VIEWS Interpreted By: Xuan Cardenas, STUDY: Right tibia, two views Right knee, two views. INDICATION: Signs/Symptoms:injury. COMPARISON: None. ACCESSION NUMBER(S): [id number]; [id number] ORDERING CLINICIAN: CRUZ GOODMAN FINDINGS: Intramedullary nail [...] Xuan Cardenas 06/13/2023 7:12 PM Dictation workstation: [id number] [facility] Anaerobic cultureOrdered By: Yulia Munoz on 11-28-2022 Bacteria identified Anaer cx Nom (Unsp spec) No anaerobic bacteria isolated. [facility] Bacteria identified Cx Nom ( Wound)Ordered By: Yulia Munoz on 11-28-2022 Wound Culture Meth. resistant Stap h. aureus [facility] Wound Culture Enterobacter cloacae complex [facility] Gram stain for investigation of transfusion reactionOrdered By: Yulia Munoz on 11-28-2022 Microscopic observation Gram stain Nom (Unsp spec) [facility] 36on 05-23-2022 36 Name of caller: Carey De La Cruz Relation to patient: patient Contact phone number: [phone] Appointment scheduled with: Avelina Tello Appointment date & time: 06/18 at 9am Reason for visit (are you having any symptoms) : Left knee hip replacement Transportation issues/ concerns: no Special accommodations? ( wheel chair, etc) : no Current medications: no Any refills need: no Any chronic conditions the provider should be aware of: knee replacement [facility] 04-25-2022 36 Seen pt had called i nto the answering service after hours, about the abx not being called in yet. Looks like the Answering service spoke with Dr. Lee since Dr. Almonte is not in the office. Called the pt and notified her that the abx (2) were called into [facility] [place]- pt gave verbal understanding. [facility] 3604-24-2022 36 Noted. Attempted to call pt, no answer. LVM for pt to return call regarding medication. [facility] 36 I signed off on the meds [facility] 04-23-2022 36 Yes, I'm not doing t he hip for sure. I tried calling her yesterday, will need to call her again today to touch base. Most likely will need amputation with Jeanie prior to any hip surgery we do. Thanks! [facility] 04-22-[address] Almonte she w ould like pt started back on previous antibiotic regimen for 14 days. Attempted to call pt, no answer. LVM for pt to return call. [place] 5602004-18-2022 36 PAT orders not yet placed, assuming surgery is on hold? [facility] Synovial fluid, cell counton 04-18-2022 Color (Syn fld) TNP [facility] Comment on above: TEST(S) NOT PERFORMED: COLOR APPEARANCE TOTAL NUCLEATED CELL CT NEUTROPHILS, % LYMPHOCYTES, % MONOCYTE/MACROPHAGE, % EOSINOPHILS, % BASOPHILS, % SYNOVIOCYTES, % COMMENT TEST NOT PERFORMED Specimen received clotted. Specimen source Nom (Unsp spec) NOT GIVEN [place] 8213304-17-2022 36 Name of caller reque sting page:[facility] Phone Number of caller: [phone] Facility requesting page: Microbiology Reason for Page: Knee fluid Provider paged: Practice Name of paged provider: Orthopedics Page Placed to #: N/A Time Page was sent or provider contacted: 6:49 Pm Page Content: [facility] with Micro[facility] at [facility] is requesting a call back [phone] in regards to knee fluid that she received that was collected wrong. please advise Normal [facility] 36 Name of caller: Amira garibay Contact phone number: [phone] Relationship to Patient: Hematology Lab Provider: Dr [...] hours to return their call: No Normal [facility] 36 PAT: TBD SX: 05/16 @ 9AM DX: M16.12 CPT: 10535 CASE: [id number] Procedure: Left Total Hip Arthroplasty - 57052 with anterior approach Time: 1.5 hours Diagnosis: 1. Primary osteoarthritis of right hip 2. Primary osteoarthritis of left hip Blood: Not anticipated to be given Important Labs to Obtain: Routine PAT protocol Anesthesia: Spinal and quadratus lumborum block DVT Prophylaxis: ASA Return to Office: No Repeat Xrays: No Anticipated Discharge To: Home, 23-HR Stay Implants: DePuy Cotati Cup, Actis Stem Equipment: Hip Superintendent Overhead Distribution lateral positioners, regular table, fluoro Other: TXA, Gisselle Brown Normal [facility] ADDENDUMNOTEon 04-17-2022 ADDENDUMNOTE Addended by: CASS GUZMAN on: 04/19/2022 03:28 PM Modules accepted: Level of Service Normal [facility] Office Visiton 04-17-2022 Follow-up visit [id number] Gemini De La Cruz 1970 F Date Provider Department Center 04/17/2022 [id number], RYAN [facility] ORT GEETA None Family History Problem Relation Age of Onset Kidney disease Mother Family Status - Relation Status Age at Mother Level of Service:01866 [place] OFFICE/OUTPATIENT ESTABLISHED MOD MDM 30-39 MIN Reason for Visit and Comments: Follow-up [396366] - FU: Left hip pain Normal [facility] Progress Noteon 04-17-2022 Progress Note [facility] [address] [place] [address] Dept: [phone] Dept 04/17/2022 Chief Complaint Patient presents with [...] 6 hours to 24 hours, initial encounter (FORM[facility]LY [facility]) 12/19/2020 Past Surgical History: Procedure Laterality Date [...] a chronic extensor (more content not included)... [facility] Office Visiton 04-03-2022 Follow-up visit [id number] Gemini De La Cruz 1970 F Date Provider Department Center 04/03/2022 [id number] [facility] ID None Family History Problem Relation Age of Onset Kidney disease Mother Family Status - Relation Status Age at Mother Level of Service:34913 [place] OFFICE/OUTPATIENT ESTABLISHED [facility] 40-54 MIN Reason for Visit and Comments: Follow-up [205372] - Right lower leg wound infection. Patient needs clearance for surgery with Dr. Guzman. [facility] 03-29-2022 36 Pt called back into the office stated she can come in on 04/03/2022 @ 10 am and is aware that she needs to be on time to this appt. [facility] [address] Emiliana urbina [...] let Dr. Almonte know she is scheduled. [facility] 03-21-2022 36 Deidra called back a nd stated she is having trouble finding an ID doctor close where she lives. Are you able to see her and if so when? [facility] 03-20-2022 36 Attempted to call pt to confirm, no answer. LVM for pt to return call. [facility] 36 When can she come I thought she was looking for an ID doc closer to her? We have tried to schedule her multiple times without success. Thanks. [facility] 03-18-2022 36 Pt called in at this time. Pt states she needs an appointment with Dr Almonte for ortho surgical clearance with Dr Guzman. Pt also states she finished antibiotics 4 days ago and is asking if she needs more. Advised I would send to provider for review. 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 [facility] 36on 03-05-2022 36 Pt came into [...] if we had other locations closer to [place], informed her we do not, this is [...] and her surgeon. Pt gave verbal understanding. [place] 5602003-01-2022 36 She is scheduled to see you on 03/05 @ 12:30pm. [address] 02-28-2022 36 Can she see me Annabelle ay 03/05 at 12:30 pm? [address] 02-26-[address] Boothe [...] person or virtually to speak with you? [address] 02-25-2022 36 I left a generic mes gene on patients voicemail to call the office. [place] [address] I have not received any request to clear her. Lets have her see her hip doctor and based on their recommendations I can make further recommendations. Has she seen wound care yet? [address] 02-21-2022 36 Pt called the office [...] already? Scheduled pt 03/14/2022 @ [address] [facility] 02-20-2022 36 Pt called in to [facility] appointment for 02/21/2022, states she does not have transportation and is in a wheelchair. Advised that I could cancel appointment but will have to ask provider what other time she has available for rescheduling. Pt verbalized understanding. Dr Almonte - please advise on when to reschedule appointment [facility] 02-18-2022 36 Name of caller: Carey azar Contact phone number: [phone] Relationship to Patient: patient Provider: Bruno Practice: [...] hours to return their call: Yes Deidra [facility] ADDENDUMNOTEon 01-31-2022 ADDENDUMNOTE Encounter addended b y: Niki Cuevas RN on: 02/04/2022 2:11 PM Actions taken: LDA properties accepted [facility] PATINSon 01-31-2022 PATINS Follow up in the [facility] in one week Take all the [...] Kerlix and tape Use Single layer Tubi Journeyman Electrician Pv Installer on both legs at all times unless showering or lying down Normal [facility] Progress Noteon 01-31-2022 Progress Note New [...] 6 hours to 24 hours, initial encounter (FORMERLY [facility]) 12/19/2020 Past Surgical History: Past Surgical History: [...] BAILEE. Pulmonary: Effort: Pulmonary effort is normal. Page (more content not included)... [place] [address]on 01-29-2022 36 Received a call from Maryann with wound care confirming the pts phone # and stated they will call to schedule the pt. [place] [address] Emiliana urbina, stated OK [...] full. Will try again to reach pt. [place] [address] Amelia are we good wit h this now? She needs both antibiotics refilled x 7 days and wound care consult. Thanks. [place] [address]20on 01-23-2022 Pt calling in at thi s time asking if provider is going to extend her antibiotic until her next appointment since it is a month away. Advised I would send a message to provider to review. She verbalized understanding. Pt scheduled for follow up on 02/21/22. Dr Almonte please advise, secure chat also sent. [facility] 36on 01-21-2022 [address] ated she only has 1 day of her antibiotics left and would like to know if you would refill them since it will be a month before she sees you. [place] [address] Just wound care cons ult. Please refill both. Also spoke with Dr. Ware regarding Ms. De La Cruz. Thanks. [address] 01-18-2022 36 Spoke with pt, she s tated she started the abx two days late (issue with pharm) and believes she is on day 5, stated for both abx she takes them both -1 in the am and 1 in the pm. Stated she is doing good, the wound is not getting worse, stated there is still some ooze but stated sokaogon seems to be getting smaller. She is [...] try to make it to this appt. [address] 01-17-2022 36 Call made to pt, no answer and pts VMB is full. Will try again to reach the pt at a later time today. [address] 01-01-2022 36 Pt checking on statu s of the results discussion. [place] [address] Did ID ever schedule her? [place] [address] Name of caller: Carey nissa Contact phone number: [phone] Relationship to Patient: patient Provider: Dr. Ware Practice: Orthopedics Chief Complaint/Reason for Call: Patient called and requested a call back to review lab results that Dr. Ware ordered. Please advise. Best time of day caller can be reached: any Patient advised that office/PCP has 24-48 business hours to return their call: No 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 Interface Message Text Chief Complaint Patient [...] sebastian testing Will proceed with just [facility] for 30 now Normal [facility] MRI Low Ext Joint w/ + w/o C yahaira Renae 12-13-2021 MRI Low Ext Joint w/ + w/o Contrast Right Patient Name: DEIDRA DE LA CRUZ Magnetic Resonance Imaging ACCESSION EXAM DATE/TIME PROCEDURE ORDERING PROVIDER [id number] 12/13/2021 16:39 EDT MRI Low Ext Joint w/ + 522851 -CASSY LANGLEY w/o Contrast Rig CPT code 90906 Reason For Exam (MRI Low Ext Joint w/ + w/o Contrast [facility]) pre op planning Report Examination: MRI [...] Transcribed Date and Time: 12/14/2021 6:21 Normal [facility] Progress Noteon 11-16-2021 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 The risks may include but [...] to: 1. Improvement of visual function The parent(s)/guardian(s)/[facility] parent(s) voiced understanding, were allowed to ask questions and had these questions answered. They were presented with alternatives including no surgery and gave permission to proceed. Schedule BMRc, BIOc F/U for pre op measurements then EOM sx Normal [facility] VL BAILEE Upr/L Extremity Art 1 -2 Levelson 10-26-2021 VL BAILEE Upr/L Extremity Art 1-2 Levels Patient [facility]: [id number]ound ACCESSION EXAM DATE/TIME PROCEDURE ORDERING PROVIDER [id number] 10/26/2021 14:57 EDT VL Upr/L Extremity Art 561522 -DAMIAN MOYA 1-2 Levels CPT code 77919 Reason For Exam (VL Upr/L Extremity Art 1-2 Levels) Other complications of procedures, not elsewhere classified, initial encounter Report [facility] Ankle Brachial Index Report Patient Jono, : 1970 Study 10/26/2021 Name: Deidra Darnell (51yrs) Date: Patient [id number] Age: 51 Account: [id number] ID: Gender: F Loc: BP: Ordering Physician: Damian Moya Package Lift Operator: Kateryna Franz RVT Interpreting Physician: Cruz Burrows MD Location: [facility] Indications: Nonhealing surgical wound right calf. [...] supine position. Images were obtained using a Cadee vascular ultrasound machine. Arterial pressure indices: + [...] CRUZ BURROWS Cardiovascular ACCESSION EXAM DATE/TIME PROCEDURE [id number] 10/26/2021 14:57 EDT VL Upr/L Extremity Art 1-2 Levels CPT code 34311 Reason For Exam (VL Upr/L Extremity Art 1-2 Levels) Other complications of procedures, not elsewhere classified, initial encounter Report [facility] Ankle Brachial Index Report Patient Jono : 1970 Study 10/26/2021 Name: Deidra Darnell (51yrs) Date: Patient [id number] Age: 51 Account: [id number] ID: Gender: F Loc: BP: Ordering Physician: Damian Moya Cardiovascular Report Package Lift Operator: LUCILA PerezT Interpreting Physician: Cruz Burrows MD Location: [facility] Indications: Nonhealing surgical wound right calf. [...] supine position. Images were obtained using a Cadee vascular ultrasound machine. Arterial pre (more content not included)... Normal [facility] Special treatments and proce [facility] 10-10-2021 Patient Name: DEIDRA GOLDSTEIN Special Procedures ACCESSION EXAM DATE/TIME PROCEDURE ORDERING PROVIDER [id number] 10/10/2021 13:53 EDT XA Special Angiography MD [...] Procedures ACCESSION EXAM DATE/TIME PROCEDURE ORDERING PROVIDER [id number] 10/10/2021 13:53 EDT XA Special Angiography MD [...] Procedures ACCESSION EXAM DATE/TIME PROCEDURE ORDERING PROVIDER [id number] 10/10/2021 13:53 EDT XA Special Angiography MD [...] Time: 10/10/2021 3:14 pm Signed by: MD JIEMNEZ YUN ROBERT Transcribed Date and Time: 10/10/2021 3:15 Normal [facility] Absolute lymphocyte counton 09-05-2021 Lymphocytes Auto (Unsp spec) [#/Vol] 5.49 10*3/uL 0.83-4.51 [facility] Work Phone: Basophil percentageon 2021 Basophil percentage 25-50 SEEN /hpf 0-5 [facility] Work Phone: Basophils/100 WBC (Bld) 0.4 % 0-1 [facility] Work Phone: Chloride [Moles/Vol] 104 mmol/L 98-107 [facility] Work Phone: Eosinophils/100 WBC (Bld) 0.3 % 0-5 [facility] Work Phone: Glucose [Mass/Vol] 96 mg/dL 74-106 [facility] Work Phone: Neutrophils (Bld) [#/Vol] 12.4 10*3/uL 2.0-7.7 [facility] Work Phone: Neutrophils/100 WBC (Bld) 61.4 % 47-70 [facility] Work Phone: Potassium [Moles/Vol] 3.5 mmol/L 3.5-5.1 [place] [facility] Work Phone: Sodium [Moles/Vol] 138 mmol/L 136-145 [facility] Work Phone: WBC (Bld) [#/Vol] 20.2 10*3/uL 4.4-11.0 [facility] Work Phone: Bilirubin Test strip Ql (U)o n 09-05-2021 Bilirubin Ql (U) Negative Negative [facility] Work Phone: Blood erythrocytes count (nu mber/volume)on 09-05-2021 RBC (Bld) [#/Vol] 4.60 10*6/uL 4.2-5.4 [facility] Work Phone: Blood hemoglobin measurement (mass/volume)on 09-05-2021 Hemoglobin (Bld) [Mass/Vol] 11.5 g/dL 12.0-15.0 [facility] Work Phone: Blood lymphocytes/100 leukoc yteson 09-05-2021 Lymphocytes/100 WBC (Bld) 27.2 % 19-41 [facility] Work Phone: Blood manual differential co mment interpretation (narrative result)on 09-05-2021 Manual differential comment David (Bld) [Interp] SCANNED [facility] Work Phone: Blood monocytes/100 leukocyt eson 09-05-2021 Monocytes/100 WBC (Bld) 9.9 % 0-10 [facility] Work Phone: Blood platelet mean volumeon 09-05-2021 Platelet mean volume (Bld) [Entitic vol] 10.8 fL 6.2-12.0 [facility] Work Phone: Determination of erythrocyte mean corpuscular volume (MCV)on 09-05-2021 MCV (RBC) [Entitic vol] 80.7 fL 81-99 [facility] Work Phone: [phone] Hematocrit Auto (Bld) [Volum e fraction]on 09-05-2021 Hematocrit (Bld) [Volume fraction] 37.1 % 37-47 [facility] Work Phone: [phone] Ketones Test strip Ql (U)on 09-05-2021 Ketones Ql (U) Negative Negative [facility] Work Phone: [phone] Laboratory - Chemistry and C hemistry - challengeon 09-05-2021 CO2 [Moles/Vol] 29.0 mmol/L 21.0-32.0 [facility] Work Phone: [phone] Urea nitrogen/Creatinine [Mass ratio] 18.7 mg/mg 12-06 [facility] Work Phone: [phone] Laboratory - Hematology and Cell countson 09-05-2021 Erythrocyte distribution width (RBC) [Entitic vol] 53.0 fL 35.1-43.9 [facility] Work Phone: [phone] Erythrocyte distribution width (RBC) [Ratio] 18.4 % 11.6-14.6 [facility] Work Phone: [phone] Immature granulocytes/100 WBC (Bld) 0.800 % 0.0-0.9 [facility] Work Phone: [phone] Comment on above: IG% - Immature Granu locytes (promyelocytes, myelocytes and metamyelocytes) > 1% indicates that a LEFT SHIFT is Present. MCH (RBC) [Entitic mass] 25.0 pg 27.0-32.0 [facility] Work Phone: [phone] Nucleated RBC/100 WBC (Bld) [Ratio] 0 % 0-5 [facility] Work Phone: [phone] MCHC Auto (RBC) [Mass/Vol]on 09-05-2021 MCHC (RBC) [Mass/Vol] 31.0 g/dL 32-36 [facility] Work Phone: [phone] Mucus LM Ql (Urine sed)on Mucus Ql (Urine sed) 0 SEEN /hpf [facility] Work Phone: [phone] Nitrite Test strip Ql (U)on 09-05-2021 Nitrite Ql (U) Negative Negative [facility] Work Phone: No Panel Informationon 09-05 Estimated Creatinine Clearance Calc 99.54 ml/min [facility] Work Phone: Estimated GFR (MDRD) Amer 126 mL/min >60 [facility] Work Phone: [phone] Comment on above: GFR Calc Estimated GFR (MDRD) Non-Af Amer 104 mL/min >60 [facility] Work Phone: Comment on above: Non- GFR Calc Platelets bldon 09-05-2021 Platelets (Bld) [#/Vol] 582 10*3/uL 150-450 [facility] Work Phone: [phone] Protein Test strip Ql (U)on 09-05-2021 Protein Ql (U) Negative Negative [facility] Work Phone: [phone] Review by pathologiston 08-18 Pathologist review David (Unsp spec) [Interp] May foll [facility] Work Phone: [phone] Serum or plasma C reactive p rotein measurement (mass/volume)on 09-05-2021 CRP [Mass/Vol] 221.00 mg/L 0.0-3.0 [facility] Work Phone: Comment on above: C-Reactive Protein ( CRP) provides useful information for thediagnosis, therapy and monitoring of inflammatory processesand associated diseases. For the evaluation of Relative Riskfor Cardiovascular Disease, a High Sensitivity CRP (HSCRP)should be ordered. Serum or plasma calcium samuel urement (mass/volume)on 09-05-2021 Calcium [Mass/Vol] 8.8 mg/dL 8.5-10.1 Located Within [facility] r [facility] Work Phone: [phone] Serum or plasma creatinine m easurement (mass/volume)on 09-05-2021 Creatinine [Mass/Vol] 0.64 mg/dL 0.55-1.02 [facility] Work Phone: Comment on above: The validity of the calculated GFR & GFRAA in patients over 70 years has not been determined. Clinical correlation is essential. Serum or plasma urea nitroge n measurement (mass/volume)on 09-05-2021 Urea nitrogen [Mass/Vol] 12 mg/dL 7-18 [facility] Work Phone: Squamous epithelial cells de tection in urine sediment by light microscopyon 09-05-2021 Epithelial cells.squamous LM Ql (Urine sed) 0-5 SEEN /hpf 5-10 [facility] Work Phone: Thin prep Papanicolaou smear with manual screeningon 09-05-2021 Thin prep Papanicolaou smear with manual screening 5 5-15 [facility] Work Phone: Urine blood detectionon 08-18 RBC Ql (U) 10 /ul Negative [facility] Work Phone: [phone] RBC Ql (U) 0-5 SEEN /hpf 0-5 [facility] Work Phone: Urine clarityon 09-05-2021 Clarity (U) Sl. Cloudy Clear [facility] Work Phone: Urine color determinationon 09-05-2021 Color (U) Yellow Yellow [facility] Work Phone: Urine glucose detectionon Glucose Ql (U) Normal mg/dl Normal [facility] Work Phone: Urine leukocyte esterase det ection by dipstickon 09-05-2021 Leukocyte esterase Test strip Ql (U) 500 /ul Negative [facility] Work Phone: Urine pHon 09-05-2021 pH (U) 6.0 [pH] 5.0 - 8.0 [facility] Work Phone: Urine sediment bacteria coun t by microscopy (number/high power field)on 09-05-2021 Bacteria LM.HPF (Urine sed) [#/Area] 1 /[HPF] None Seen [facility] Work Phone: Urine sediment yeast count b y microscopy (number/high powered field)on 09-05-2021 Yeast LM.HPF (Urine sed) [#/Area] 1 /[HPF] None Seen [facility] Work Phone: Urine specific gravity measu rementon 09-05-2021 Specific gravity (U) [Rel density] 1.015 1.002-1.030 [facility] Work Phone: Urobilinogen Auto test strip Ql (U)on 09-05-2021 Urobilinogen Ql (U) Normal mg/dl Normal [facility] Work Phone: CT Up Ext w/o Contrast Lefto n 05-28-2021 CT Up Ext w/o Contrast Left Normal [facility] CR Wrist Complete 3 Views [place] 05-15-2021 CR Wrist Complete 3 Views Left Patient Name: DEIDRA DE LA CRUZ Diagnostic Radiology ACCESSION EXAM DATE/TIME PROCEDURE ORDERING PROVIDER [id number] 05/15/2021 11:27 EDT CR Wrist Complete 3 JOSEMD Ford DYLAN R Views Left CPT code 62903 Reason For Exam (CR Wrist Complete 3 [...] Transcribed Date and Time: 05/17/2021 9:26 Normal [facility] COVID-19on 04-30-2021 SARS-CoV-2 (COVID-19) RNA CAPRICE+probe Ql (Unsp spec) Not detected Not Detected [facility] Comment on above: Not Detected. Expected result: Not Detected _ Method: Real-time, RT-PCR Negative results do not preclude SARS-CoV-2 infection and should not be used as the sole basis for treatment or other patient management decisions. This assay was developed by [employer] and distributed under an Emergency Use Authorization (EUA) granted by the FDA for the qualitative detection of SARS-CoV-2 nucleic acid. Provider and patient fact sheets can be found at https://www.fda.gov/media/152080/download and https://www.fda.gov/media/583714/download. Test Performed by [id number] [place] [address] [id number] 04-30-2021 SARS-CoV-2 (COVID-19) RNA CAPRICE+probe Ql (Unsp spec) Normal [facility] Comment on above: Performed By: #### C OVID ####[place] [address] [place], [place] C. difficile toxin Molecular on 04-26-2021 C. difficile toxin Molecular NEGATIVE Methodology - Real Time PCR ([employer]) Clinical judgement must be used when interpreting results. Positive results may reflect colonization. Indeterminate results suggest a new specimen be submitted. [address] [facility] Clostridium difficile PCRon 04-26-2021 Clostridium difficile PCR Normal [facility] Comment on above: Performed By: #### C DPCR ####, [id number] performing lab is in the report. GASTROINTESTINAL PCR PANELon 04-26-2021 GASTROINTESTINAL PCR PANEL Normal [facility] Comment on above: Performed By: #### B FGI ####[facility] [place], [place] Gastrointestinal Panel by ALVAREZ Aon 04-26-2021 Gastrointestinal PCR Panel NEGATIVE: No targets were detected by the [employer] Gastrointestinal PCR Panel. _ The [employer] Gastrointestinal PCR Panel can detect the following targets: Campylobacter, Plesiomonas shigelloides, Salmonella, Vibrio species, Vibrio cholerae, Yersinia enterocolitica, Shiga toxin-producing E coli (STEC) including E coli O157, Enterotoxigenic E coli (ETEC), Shigella/Enteroinvasive E coli (EIEC), Cryptosporidium, Cyclospora cayetanensis, Entamoeba histolytica, Giardia lamblia, Adenovirus F 40/41, Astrovirus, Norovirus GI/GII, Rotavirus A, Sapovirus [facility] Test Performed by [facility], [facility] [place] [address] [facility] CULT/STAIN - AEROBIC AND FELY EROBICon 04-24-2021 CULT/STAIN - AEROBIC AND ANAEROBIC Normal [facility] Comment on above: Performed By: #### Rodney HELLER ####[address] [place], [place] Culture, Anaerobic and Aerob icon 04-24-2021 Aerobic Culture Mixed skin evan pre sent. No Staphylococcus aureus isolated. No Pseudomonas aeruginosa isolated. No beta-hemolytic streptococcus isolated. [facility] Anaerobic Culture No growth of anaerob es at 5 days. [facility] Gram Stain Result No polymorphonuclear cells/lpf. No organisms seen. [facility] Test Performed by [facility], [address] [place] [address] [facility] Basic Metabolic Panelon Anion gap [Moles/Vol] 5 mmol/L Normal 3-13 [facility] Comment on above: Performed By: #### B MP3M ####[address] [place], [place] Calcium [Mass/Vol] 9.5 mg/dL Normal 8.4-10.4 [facility] Comment on above: Performed By: #### B MP3M ####[address] [place], [place] CO2 [Moles/Vol] 27 mmol/L Normal 22-30 [facility] Comment on above: Performed By: #### B MP3M ####[address] [place], [place] Glucose [Mass/Vol] 120 mg/dL High 70-100 [facility] Comment on above: Performed By: #### B MP3M ####[address] [place], [place] Urea nitrogen [Mass/Vol] 13 mg/dL Normal 9-20 [facility] Comment on above: Performed By: #### B MP3M ####[address] [place] Creatinine [Mass/Vol] 0.52 mg/dL Normal 0.52-1.25 [facility] Comment on above: Performed By: #### B MP3M ####[address] [place], [place] eGFR OTHER > 90.0 Normal >60 [facility] Comment on above: Result Comment: KDIG O guidelines provide the following GFR categories:Stage GFR(ml/min/1.73 m2) TermsG1 >=90 Normal or highG2 60-89 Mildly decreased*G3a 45-59 Mildly to moderately [id number] 30-44 Moderately to severely decreasedG4 15-29 Severely [...] creatinine secretion. Performed By: #### B MP3M ####[address] GFR/1.73 sq M.predicted among blacks MDRD (S/P/Bld) [Vol rate/Area] mL/min/{1.73_m2} Normal >60 [facility] Comment on above: Performed By: #### B MP3M ####[address] [place], [place] Potassium [Moles/Vol] 3.6 mmol/L Normal 3.5-5.1 [facility] Comment on above: Performed By: #### B MP3M ####[address] [place], [place] Chloride [Moles/Vol] 105 mmol/L Normal 98-107 [facility] Comment on above: Performed By: #### B MP3M ####[address] [place] Sodium [Moles/Vol] 137 mmol/L Normal 135-145 [facility] Comment on above: Performed By: #### B MP3M ####[address] Basic Metabolic Panel w/ Ref ruslan to MGon 04-19-2021 Anion gap [Moles/Vol] 5 mmol/L 3 - 13 mmol/L [facility] Calcium [Mass/Vol] 9.5 mg/dL 8.4 - 10. 4 mg/dL [facility] Chloride [Moles/Vol] 105 mmol/L 98 - 10 7 mmol/L [facility] CO2 [Moles/Vol] 27 mmol/L 22 - 30 mmol/L [facility] Creatinine [Mass/Vol] 0.52 mg/dL 0.52 - 1.25 mg/dL [facility] EGFR IF NonAfrican Bermudian >90.0 >60 mL/min [facility] Comment on above: [...] - 20 mg/dL [facility] Test Performed by [facility], [address] [place] [id number] [place] [address] LAB [facility] CBC with Auto DifferentialOr dered [...] 3.93 10*6/uL 3.80 - 5.2 0 10*6/uL [facility] WBC (Bld) [#/Vol] 10.7 10*3/uL 3.6 - 10.7 10*3/uL [facility] CBC with Auto Differentialon 04-19-2021 Test Performed by [facility], [address] [place] [place] [address] [facility] Hemogram w/ Autodiffon 04-19 Abs Baso Cnt 0.2 10*3/uL Normal 0.0-0.[address] [facility] Comment on above: Performed By: #### H EMDF ####[address] [place] [address] Abs Neutrophile Cnt 4.6 10*3/uL Normal 1.8-7.0 [facility] Comment on above: Performed By: #### H EMDF ####[address] [place] [address] Basophils/100 WBC (Bld) 1.6 % Normal 0.0-2.0 [facility] Comment on above: Performed By: #### H EMDF ####[address] [address] Eosinophils (Bld) [#/Vol] 0.3 10*3/uL Normal 0.0-0.5 [facility] Comment on above: Performed By: #### H EMDF ####[address] [place] [address] Eosinophils/100 WBC (Bld) 3.3 % Normal 1.0-6.0 [facility] Comment on above: Performed By: #### H EMDF ####[address] [place] [address] Erythrocyte distribution width (RBC) [Ratio] 16.9 % High 11.5-14.5 [facility] Comment on above: Performed By: #### H EMDF ####[address] [address] Granulocytes/100 WBC (Bld) 43.4 % Normal 40.0-80.0 [facility] Comment on above: Performed By: #### H EMDF ####[address] Hematocrit (Bld) [Volume fraction] 31.9 % Low 35.0-47.0 [facility] Comment on above: Performed By: #### H EMDF ####[address] Hemoglobin (Bld) [Mass/Vol] 10.2 g/dL Low 11.7-16.0 [facility] Comment on above: Performed By: #### H EMDF ####[address] Lymphocytes (Bld) [#/Vol] 4.9 10*3/uL High 1.0-4.3 [facility] Comment on above: Performed By: #### H EMDF ####[address] Lymphocytes/100 WBC (Bld) 45.4 % High 20.0-40.0 [facility] Comment on above: Performed By: #### H EMDF ####[address] MCH (RBC) [Entitic mass] 25.9 pg Low 26.0-34.0 [facility] Comment on above: Performed By: #### H EMDF ####[address] MCHC 31.9 % Low 32.0-36.0 [facility] Comment on above: Performed By: #### H EMDF ####[address] MCV (RBC) [Entitic vol] 81.2 fL Normal 79.0-98.0 [facility] Comment on above: Performed By: #### H EMDF ####[address] Monocytes (Bld) [#/Vol] 0.7 10*3/uL Normal 0.0-0.8 [facility] Comment on above: Performed By: #### H EMDF ####[address] [place], [place] Monocytes/100 WBC (Bld) 6.3 % Normal 2.0-10.0 [facility] Comment on above: Performed By: #### H EMDF ####[address] [place], [place] Platelet mean volume (Bld) [Entitic vol] 9.9 fL Normal 7.4-10.4 [facility] Comment on above: Performed By: #### H EMDF ####[address] [place] Platelets (Bld) [#/Vol] 679 10*3/uL High 140-440 [facility] Comment on above: Performed By: #### H EMDF ####[address] [place] RBC (Bld) [#/Vol] 3.93 10*6/uL Normal 3.80-5.20 [facility] Comment on above: Performed By: #### H EMDF ####[address] [place], [place] WBC (Bld) [#/Vol] 10.7 10*3/uL Normal 3.6-10.7 [facility] Comment on above: Performed By: #### H EMDF ####[address] [place], [place] CR Chest Portableon 04-19-19 22 CR Chest Portable Normal [facility] Complete Urinalysison 2021 Appearance (U) Turbid Abnormal Clear [facility] Comment on above: Result Comment: . Performed By: #### C UA2 ####[address] [place], [place] Bilirubin,Urine Negative Normal Negative [facility] Comment on above: Result Comment: . Performed By: #### C UA2 ####[address] [place], [place] Color (U) Light-Yellow Normal Lt. Yellow [facility] Comment on above: Result Comment: . Performed By: #### C UA2 ####[address] . [place], [place] Glucose Ql (U) Normal Normal Normal (<70) [facility] Comment on above: Result Comment: . Performed By: #### C UA2 ####[address] [place], [place] Ketone,Urine Negative Normal Negative [facility] Comment on above: Result Comment: . Performed By: #### C UA2 ####[address] Leukocytes,Urine Negative Normal Negative [facility] Comment on above: Result Comment: . Performed By: #### C UA2 ####[address] Nitrites,Urine Negative Normal Negative [facility] Comment on above: Result Comment: . Performed By: #### C UA2 ####[address] Occult Blood,Urine Negative Normal Negative [facility] Comment on above: Result Comment: . Performed By: #### C UA2 ####[address] pH,Urine 7.5 Normal 5.0-8.0 [facility] Comment on above: Result Comment: . Performed By: #### C UA2 ####[address] [place], [place] Specific [place],Urine 1.013 Normal 1.005 - 1.030 [facility] Comment on above: Result Comment: . Performed By: #### C UA2 ####[address] Total Protein,Urine Negative Normal Negative [facility] Comment on above: Result Comment: . Performed By: #### C UA2 ####[address] Urobilinogen,Urine Normal Normal Normal (0-1) [facility] Comment on above: Result Comment: . Performed By: #### C UA2 ####[facility] [place] [address] Urinalysison 04-18-2021 Appearance (U) Turbid Abnormal Clear NA [facility] Comment on above: . Bilirubin Urine Negative Negative mg/dL [facility] Comment on above: . Color (U) Light-Yellow Lt. Yellow NA [facility] Comment on above: . Glucose, Ur Normal Normal (<70) mg/dL [facility] Comment on above: . Interpretation and review of laboratory results Abnormal [facility] Ketones Ql (U) Negative Negative mg/dL [facility] Comment on above: . LEUKOCYTES, UA Negative Negative Richard/uL [facility] Comment on above: . Nitrite, Urine Negative Negative NA [facility] Comment on above: . Occult Blood,Urine Negative Negative mg/dL [facility] Comment on above: . pH (U) 7.5 [pH] [facility] Comment on above: . Specific [place], Urine 1.013 [facility] Comment on above: . Total Protein, Urine Negative Negativ e mg/dL [facility] Comment on above: . Urobilinogen, Urine Normal Normal ( 0-1) mg/dL [facility] Comment on above: . Test Performed by [facility], [address] [place], [place] [id number] [place] [address] LAB [facility] XR CHEST PORTABLEon 04-19-19 Patient Name: DEIDRA GOLDSTEIN Diagnostic Radiology ACCESSION EXAM DATE/TIME PROCEDURE ORDERING PROVIDER [id number] 04/18/2021 00:37 EST CR Chest Portable [id number] [facility] CPT code 52703 Reason For Exam (CR Chest Portable) leukocytosis [...] Transcribed Date and Time: 04/18/2021 0:[address] [facility] Clau Treviño DO - 04/18/2021 [id number]iology ACCESSION EXAM DATE/TIME PROCEDURE ORDERING PROVIDER [id number] 04/18/2021 00:37 EST CR Chest Portable [id number] -KIBE BELL CPT code 55598 Reason For Exam (CR Chest Portable) leukocytosis [...] I Transcribed Date and Time: 04/18/2021 0:50 [facility] Work Phone: Radiology Study observation (narrative) [facility] Work Phone: XR CHEST PORTABLEOrdered By: Clau Mares on 04-18-2021 [facility] Work Phone: Basic Metabolic Panelon 03-0 Calcium [Mass/Vol] 10.3 mg/dL Normal 8.4-10.4 [facility] Comment on above: Performed By: #### B MP3, HEMDF, MG3, LFT3 ####[facility] [employer] [id number] [place] [address] Glucose [Mass/Vol] 125 mg/dL High 70-100 [facility] Comment on above: Performed By: #### B MP3, HEMDF, MG3, LFT3 ####[facility] [employer] [facility] [id number] [place], [place] Urea nitrogen [Mass/Vol] 11 mg/dL Normal 9-20 [facility] Comment on above: Performed By: #### B MP3, HEMDF, MG3, LFT3 ####[facility] [employer] [id number] [place], [place] Anion gap [Moles/Vol] 6 mmol/L Normal 3-13 [facility] Comment on above: Performed By: #### B MP3, HEMDF, MG3, LFT3 ####[address] [place], [place] CO2 [Moles/Vol] 27 mmol/L Normal 22-30 [facility] Comment on above: Performed By: #### B MP3, HEMDF, MG3, LFT3 ####[facility] [employer] [id number] [place], [place] Creatinine [Mass/Vol] 0.45 mg/dL Low 0.52-1.25 [facility] Comment on above: Performed By: #### B MP3, HEMDF, MG3, LFT3 ####[facility] [employer] [id number] [place], [place] eGFR OTHER > 90.0 Normal >60 [facility] Comment on above: Result Comment: KDIG O guidelines provide the following GFR categories:Stage GFR(ml/min/1.73 m2) TermsG1 >=90 Normal or highG2 60-89 Mildly decreased*G3a 45-59 Mildly to moderately [id number] 30-44 Moderately to severely decreasedG4 15-29 Severely [...] By: #### B MP3, HEMDF, MG3, LFT3 ####[facility] [employer] [id number] [place] [address] GFR/1.73 sq M.predicted among blacks MDRD (S/P/Bld) [Vol rate/Area] mL/min/{1.73_m2} Normal >60 [facility] Comment on above: Performed By: #### B MP3, HEMDF, MG3, LFT3 ####[facility] [employer] [id number] [place] [address] Chloride [Moles/Vol] 103 mmol/L Normal 98-107 [facility] Comment on above: Performed By: #### B MP3, HEMDF, MG3, LFT3 ####[facility] [employer] [id number] [place], [place] Potassium [Moles/Vol] 4.9 mmol/L Normal 3.5-5.1 [facility] Comment on above: Result Comment: Slig htly hemolysed, interpret with caution. Performed By: #### B MP3, HEMDF, MG3, LFT3 ####[facility] [employer] [id number] [place], [place] Sodium [Moles/Vol] 136 mmol/L Normal 135-145 [facility] Comment on above: Performed By: #### B MP3, HEMDF, MG3, LFT3 ####[facility] [employer] [id number] [place], [place] Anion gap [Moles/Vol] 6 mmol/L 3 - 13 mmol/L [facility] Calcium [Mass/Vol] 10.3 mg/dL 8.4 - 10. 4 mg/dL [facility] Chloride [Moles/Vol] 103 mmol/L 98 - 10 7 mmol/L [facility] CO2 [Moles/Vol] 27 mmol/L 22 - 30 mmol/L [facility] Creatinine [Mass/Vol] 0.45 mg/dL Low 0.52 - 1.25 mg/dL [facility] EGFR IF NonAfrican [place]ermudian >90.0 >60 mL/min [facility] Comment on above: KDIGO guidelines pro [...] - 10.7 10*3/uL [facility] Test Performed by [facility], [address] [place] [address] [facility] ED Provider Noteon 2 ED Provider Note Normal [facility] Hemogram w/ Autodiffon 04-17 Abs Baso Cnt 0.1 10*3/uL Normal 0.0-0.2 [facility] Comment on above: Performed By: #### B MP3, HEMDF, MG3, LFT3 ####[facility] [place] [address] Abs Neutrophile Cnt 8.3 10*3/uL High 1.8-7.0 [facility] Comment on above: Performed By: #### B MP3, HEMDF, MG3, LFT3 ####[address] Basophils/100 WBC (Bld) 1.0 % Normal 0.0-2.0 [facility] Comment on above: Performed By: #### B MP3, HEMDF, MG3, LFT3 ####[address] Eosinophils (Bld) [#/Vol] 0.2 10*3/uL Normal 0.0-0.5 [facility] Comment on above: Performed By: #### B MP3, HEMDF, MG3, LFT3 ####[address] Eosinophils/100 WBC (Bld) 1.7 % Normal 1.0-6.0 [facility] Comment on above: Performed By: #### B MP3, HEMDF, MG3, LFT3 ####[address] Erythrocyte distribution width (RBC) [Ratio] 16.8 % High 11.5-14.5 [facility] Comment on above: Performed By: #### B MP3, HEMDF, MG3, LFT3 ####[address] Granulocytes/100 WBC (Bld) 59.5 % Normal 40.0-80.0 [facility] Comment on above: Performed By: #### B MP3, HEMDF, MG3, LFT3 ####[address] Hematocrit (Bld) [Volume fraction] 40.2 % Normal 35.0-47.0 [facility] Comment on above: Performed By: #### B MP3, HEMDF, MG3, LFT3 ####[address] Hemoglobin (Bld) [Mass/Vol] 12.7 g/dL Normal 11.7-16.0 [facility] Comment on above: Performed By: #### B MP3, HEMDF, MG3, LFT3 ####[address] Lymphocytes (Bld) [#/Vol] 4.5 10*3/uL High 1.0-4.3 [facility] Comment on above: Performed By: #### B MP3, HEMDF, MG3, LFT3 ####[address] Lymphocytes/100 WBC (Bld) 32.3 % Normal 20.0-40.0 [facility] Comment on above: Performed By: #### B MP3, HEMDF, MG3, LFT3 ####[address] MCH (RBC) [Entitic mass] 25.6 pg Low 26.0-34.0 [facility] Comment on above: Performed By: #### B MP3, HEMDF, MG3, LFT3 ####[address] MCHC 31.6 % Low 32.0-36.0 [facility] Comment on above: Performed By: #### B MP3, HEMDF, MG3, LFT3 ####[address] MCV (RBC) [Entitic vol] 81.3 fL Normal 79.0-98.0 [facility] Comment on above: Performed By: #### B MP3, HEMDF, MG3, LFT3 ####[address] Monocytes (Bld) [#/Vol] 0.8 10*3/uL Normal 0.0-0.8 [facility] Comment on above: Performed By: #### B MP3, HEMDF, MG3, LFT3 ####[address] Monocytes/100 WBC (Bld) 5.5 % Normal 2.0-10.0 [facility] Comment on above: Performed By: #### B MP3, HEMDF, MG3, LFT3 ####[address] [place], [place] Platelet mean volume (Bld) [Entitic vol] 9.6 fL Normal 7.4-10.4 [facility] Comment on above: Performed By: #### B MP3, HEMDF, MG3, LFT3 ####[address] [place], [place] Platelets (Bld) [#/Vol] 647 10*3/uL High 140-440 [facility] Comment on above: Performed By: #### B MP3, HEMDF, MG3, LFT3 ####[address] [place], [place] RBC (Bld) [#/Vol] 4.95 10*6/uL Normal 3.80-5.20 [facility] Comment on above: Performed By: #### B MP3, HEMDF, MG3, LFT3 ####[address] [place], [place] WBC (Bld) [#/Vol] 13.9 10*3/uL High 3.6-10.7 [facility] Comment on above: Performed By: #### B MP3, HEMDF, MG3, LFT3 ####[address] [place], [place] Hepatic Functionon 2 ALP [Catalytic activity/Vol] 167 U/L High 38-126 [facility] Comment on above: Result Comment: Slig htly hemolysed, interpret with caution. Performed By: #### B MP3, HEMDF, MG3, LFT3 ####[address] [place], [place] ALT [Catalytic activity/Vol] 22 U/L Normal 0-34 [facility] Comment on above: Result Comment: The ALT test is performed by an updated assay method.Please note that the reference intervals have beenchanged and are now sex specific. Performed By: #### B MP3, HEMDF, MG3, LFT3 ####[address] [place], [place] AST [Catalytic activity/Vol] 36 U/L Normal 15-46 [facility] Comment on above: Result Comment: Slig htly hemolysed, interpret with caution. Performed By: #### B MP3, HEMDF, MG3, LFT3 ####[address] [place], [place] Bilirubin [Mass/Vol] 0.7 mg/dL Normal 0.2-1.3 [facility] Comment on above: Performed By: #### B MP3, HEMDF, MG3, LFT3 ####[address] Protein [Mass/Vol] 8.3 g/dL High 6.3-8.2 [facility] Comment on above: Result Comment: Slig htly hemolysed, interpret with caution. Performed By: #### B MP3, HEMDF, MG3, LFT3 ####[address] [place], [place] Bilirubin.indirect [Mass/Vol] 0.0 mg/dL Normal 0.0-0.3 [facility] Comment on above: Performed By: #### B MP3, HEMDF, MG3, LFT3 ####[address] Albumin [Mass/Vol] 4.4 g/dL Normal 3.5-5.0 [facility] Comment on above: Result Comment: Slig htly hemolysed, interpret with caution. Performed By: #### B MP3, HEMDF, MG3, LFT3 ####[address] [place], [place] Hepatic Function Panelon Albumin [Mass/Vol] 4.4 g/dL 3.5 - 5.0 g/dL [facility] Comment on above: Slightly hemolysed, interpret [...] 04-17-2021 Magnesium [Mass/Vol] 2.1 mg/dL Normal 1.6-2.3 [facility] Comment on above: Result Comment: Slig htly hemolysed, interpret with caution. Performed By: #### B MP3, HEMDF, MG3, LFT3 ####[address] [address] Magnesium [Mass/Vol] 2.1 mg/dL 1.6 - 2 .3 mg/dL [facility] Comment on above: Slightly hemolysed, interpret with caution. No Panel Informationon 04-17 Interpretation and review of laboratory results Abnormal [facility] Test Performed by [facility], [address] [place], [place] [id number] [place] [address] LAB [facility] Ammoniaon 04-12-2021 Ammonia (P) [Mass/Vol] ug/dL Normal 9-30 [facility] Comment on above: Performed By: #### N H33 ####[address] [address] VL Venous Duplex US Lower Ex t Bilateralon 04-12-2021 VL Venous Duplex US Lower Ext Bilateral Normal [facility] [id number] 04-11-2021 SARS-CoV-2 (COVID-19) RNA CAPRICE+probe Ql (Unsp spec) Normal [facility] Comment on above: Performed By: #### C OVID ####[address] [facility] [address] Comp Metabolic Panelon 04-10 ALP [Catalytic activity/Vol] 217 U/L High 38-126 [facility] Comment on above: Performed By: #### M G3, CMP3, PHOS3 ####[address] [facility] [place] ALT [Catalytic activity/Vol] 24 U/L Normal 0-34 [facility] Comment on above: Result Comment: The ALT test is performed by an updated assay method.Please note that the reference intervals have beenchanged and are now sex specific. Performed By: #### M Wu, CMP3, PHOS3 ####[address] [facility] AST [Catalytic activity/Vol] 41 U/L Normal 15-46 [facility] Comment on above: Performed By: #### M G3, CMP3, PHOS3 ####[address] [facility] Calcium [Mass/Vol] 10.5 mg/dL High 8.4-10.4 [facility] Comment on above: Performed By: #### M G3, CMP3, PHOS3 ####[address] [facility] Glucose [Mass/Vol] 107 mg/dL High 70-100 [facility] Comment on above: Performed By: #### M G3, CMP3, PHOS3 ####[address] [facility] Protein [Mass/Vol] 7.9 g/dL Normal 6.3-8.2 [facility] Comment on above: Performed By: #### M G3, CMP3, PHOS3 ####[address] [facility] Urea nitrogen [Mass/Vol] 25 mg/dL High 9-20 [facility] Comment on above: Performed By: #### M G3, CMP3, PHOS3 ####[facility] [id number] [place] [address] Anion gap [Moles/Vol] 8 mmol/L Normal 3-13 [facility] Comment on above: Performed By: #### M G3, CMP3, PHOS3 ####[address] [place] [address] Bilirubin [Mass/Vol] 0.4 mg/dL Normal 0.2-1.3 [facility] Comment on above: Performed By: #### M G3, CMP3, PHOS3 ####[address] [place] [address] CO2 [Moles/Vol] 31 mmol/L High 22-30 [facility] Comment on above: Performed By: #### M G3, CMP3, PHOS3 ####[address] [place] [address] Creatinine [Mass/Vol] 0.86 mg/dL Normal 0.52-1.25 [facility] Comment on above: Performed By: #### Ward G3, CMP3, PHOS3 ####[address] [place] [address] GFR/1.73 sq M.predicted among blacks MDRD (S/P/Bld) [Vol rate/Area] mL/min/{1.73_m2} Normal >60 [facility] Comment on above: Performed By: #### M G3, CMP3, PHOS3 ####[address] [place] [address] GFR/1.73 sq M.predicted among non-blacks MDRD (S/P/Bld) [Vol rate/Area] 79.3 mL/min/{1.73_m2} Normal >60 [facility] Comment on above: Result Comment: KDIG O guidelines provide the following GFR categories:Stage GFR(ml/min/1.73 m2) TermsG1 >=90 Normal or highG2 60-89 Mildly decreased*G3a 45-59 Mildly to moderately [id number] 30-44 Moderately to severely decreasedG4 15-29 Severely [...] Performed By: #### M Wu CMP3, PHOS3 ####[address] [place] [address] Potassium [Moles/Vol] 4.3 mmol/L Normal 3.5-5.1 [facility] Comment on above: Performed By: #### Ward Washburn CMP3, PHOS3 ####[address] [place] [address] Sodium [Moles/Vol] 139 mmol/L Normal 135-145 [facility] Comment on above: Performed By: #### Ward Washburn CMP3, PHOS3 ####[address] [place] [address] Albumin [Mass/Vol] 4.2 g/dL Normal 3.5-5.0 [facility] Comment on above: Performed By: #### Ward Washburn CMP3, PHOS3 ####[address] [place] [address] Chloride [Moles/Vol] 99 mmol/L Normal 98-107 [facility] Comment on above: Performed By: #### M Wu CMP3, PHOS3 ####[address] [place] [address] Hemogramon 04-10-2021 Erythrocyte distribution width (RBC) [Ratio] 16.2 % High 11.5-14.5 [facility] Comment on above: Performed By: #### H EMOG ####[address] [place] [address] Hematocrit (Bld) [Volume fraction] 37.9 % Normal 35.0-47.0 [facility] Comment on above: Performed By: #### H EMOG ####[address] [place] Hemoglobin (Bld) [Mass/Vol] 11.8 g/dL Normal 11.7-16.0 [facility] Comment on above: Performed By: #### H EMOG ####[address] [place], [place] [facility]CH (RBC) [Entitic mass] 25.9 pg Low 26.0-34.0 [facility] Comment on above: Performed By: #### H EMOG ####[address] MCHC 31.1 % Low 32.0-36.0 [facility] Comment on above: Performed By: #### H EMOG ####[address] MCV (RBC) [Entitic vol] 83.3 fL Normal 79.0-98.0 [facility] Comment on above: Performed By: #### H EMOG ####[address] Platelet mean volume (Bld) [Entitic vol] 9.2 fL Normal 7.4-10.4 [facility] Comment on above: Performed By: #### H EMOG ####[address] Platelets (Bld) [#/Vol] 705 10*3/uL High 140-440 [facility] Comment on above: Performed By: #### H EMOG ####[address] RBC (Bld) [#/Vol] 4.55 10*6/uL Normal 3.80-5.20 [facility] Comment on above: Performed By: #### H EMOG ####[address] WBC (Bld) [#/Vol] 11.3 10*3/uL High 3.6-10.7 [facility] Comment on above: Performed By: #### H EMOG ####[facility] [place], [place] Magnesiumon 04-10-2021 Magnesium [Mass/Vol] 2.1 mg/dL Normal 1.6-2.3 [facility] Comment on above: Performed By: #### M G3, CMP3, PHOS3 ####[facility] [place], [place] Phosphoruson 04-10-2021 Phosphate [Mass/Vol] 6.0 mg/dL High 2.5-4.5 [facility] Comment on above: Performed By: #### M G3, CMP3, PHOS3 ####[address] [place], [place] VL Venous Duplex US Lower Ex t Bilateralon 04-09-2021 VL Venous Duplex US Lower Ext Bilateral Normal [facility] VL Venous Duplex US Lower Ex t Bilateralon 04-05-2021 VL Venous Duplex US Lower Ext Bilateral Normal [facility] VL Venous Duplex US Lower Ex t Bilateralon 04-02-2021 VL Venous Duplex US Lower Ext Bilateral Normal [facility] CT Up Ext w/o Contrast Lefto n 03-31-2021 CT Up Ext w/o Contrast Left Normal [facility] Clostridium difficile PCRon 03-31-2021 Clostridium difficile PCR Normal [facility] Comment on above: Performed By: #### C DPCR ####, [id number] performing lab is in the report. CR Forearm 2 Views Lefton CR Forearm 2 Views Left Normal [facility] CR Hand Complete 3+ Views Le fton 03-30-2021 CR Hand Complete 3+ Views Left Normal [facility] CR Knee 3 Views Righton 03-20 CR Knee 3 Views Right Normal [facility] CR Pelvis 1 or 2 Viewson CR Pelvis 1 or 2 Views Normal [facility] CR Tibia/Fibula 2 Views Righ ton 03-30-2021 CR Tibia/Fibula 2 Views Right Normal [facility] Basic Metabolic Panelon 03-20 Calcium [Mass/Vol] 10.2 mg/dL Normal 8.4-10.4 [facility] Comment on above: Performed By: #### H EMDF, BMP3 ####[facility] [employer] [id number] [place], [place] Glucose [Mass/Vol] 104 mg/dL High 70-100 [facility] Comment on above: Performed By: #### H EMDF, BMP3 ####[facility] [employer] [id number] [place], [place] Urea nitrogen [Mass/Vol] 14 mg/dL Normal 9-20 [facility] Comment on above: Performed By: #### H EMDF, BMP3 ####[facility] [employer] [id number] [place], [place] Anion gap [Moles/Vol] 7 mmol/L Normal 3-13 [facility] Comment on above: Performed By: #### H EMDF, BMP3 ####[facility] [employer] [id number] [place], [place] CO2 [Moles/Vol] 30 mmol/L Normal 22-30 [facility] Comment on above: Performed By: #### H EMDF, BMP3 ####[facility] [employer] [id number] [place], [place] Creatinine [Mass/Vol] 0.69 mg/dL Normal 0.52-1.25 [facility] Comment on above: Performed By: #### H EMDF, BMP3 ####[facility] [employer] [id number] [place], [place] eGFR OTHER > 90.0 Normal >60 [facility] Comment on above: Result Comment: KDIG O guidelines provide the following GFR categories:Stage GFR(ml/min/1.73 m2) TermsG1 >=90 Normal or highG2 60-89 Mildly decreased*G3a 45-59 Mildly to moderately akwqmetugI5v 30-44 Moderately to severely decreasedG4 15-29 Severely [...] secretion. Performed By: #### H CURLY BMP3 ####[address] [place], [place] GFR/1.73 sq M.predicted among blacks MDRD (S/P/Bld) [Vol rate/Area] mL/min/{1.73_m2} Normal >60 [facility] Comment on above: Performed By: #### H CURLY BMP3 ####[address] Potassium [Moles/Vol] 4.0 mmol/L Normal 3.5-5.1 [facility] Comment on above: Performed By: #### H CURLY BMP3 ####[address] Sodium [Moles/Vol] 141 mmol/L Normal 135-145 [facility] Comment on above: Performed By: #### H CURLY BMP3 ####[address] Chloride [Moles/Vol] 104 mmol/L Normal 98-107 [facility] Comment on above: Performed By: #### H CURLY BMP3 ####[address] CR Knee 3 Views Lefton 03-29 CR Knee 3 Views Left Normal [facility] ED Provider Noteon 2 ED Provider Note Normal [facility] Hemogram w/ Autodiffon 03-29 Abs Baso Cnt 0.3 10*3/uL High 0.0-0.2 [facility] Comment on above: Performed By: #### H CURLY, BMP3 ####[address] Abs Neutrophile Cnt 6.7 10*3/uL Normal 1.8-7.0 [facility] Comment on above: Performed By: #### H EMDF, BMP3 ####[address] [place], [place] Basophils/100 WBC (Bld) 2.3 % High 0.0-2.0 [facility] Comment on above: Performed By: #### H EMDF, BMP3 ####[address] [place], [place] Eosinophils (Bld) [#/Vol] 0.7 10*3/uL High 0.0-0.5 [facility] Comment on above: Performed By: #### H EMDF, BMP3 ####[address] Eosinophils/100 WBC (Bld) 4.9 % Normal 1.0-6.0 [facility] Comment on above: Performed By: #### H EMDF, BMP3 ####[address] Erythrocyte distribution width (RBC) [Ratio] 16.9 % High 11.5-14.5 [facility] Comment on above: Performed By: #### H EMDF, BMP3 ####[address] Granulocytes/100 WBC (Bld) 46.4 % Normal 40.0-80.0 [facility] Comment on above: Performed By: #### H EMDF, BMP3 ####[address] Hematocrit (Bld) [Volume fraction] 38.5 % Normal 35.0-47.0 [facility] Comment on above: Performed By: #### H EMDF, BMP3 ####[address] Hemoglobin (Bld) [Mass/Vol] 12.0 g/dL Normal 11.7-16.0 [facility] Comment on above: Performed By: #### H EMDF, BMP3 ####[address] Lymphocytes (Bld) [#/Vol] 6.0 10*3/uL High 1.0-4.3 [facility] Comment on above: Performed By: #### H CURLY BMP3 ####[address] Lymphocytes/100 WBC (Bld) 41.1 % High 20.0-40.0 [facility] Comment on above: Performed By: #### H CURLY BMP3 ####[address] MCH (RBC) [Entitic mass] 26.4 pg Normal 26.0-34.0 [facility] Comment on above: Performed By: #### H CURLY BMP3 ####[address] MCHC 31.2 % Low 32.0-36.0 [facility] Comment on above: Performed By: #### H CURLY BMP3 ####[address] MCV (RBC) [Entitic vol] 84.4 fL Normal 79.0-98.0 [facility] Comment on above: Performed By: #### H CURLY BMP3 ####[address] Monocytes (Bld) [#/Vol] 0.8 10*3/uL Normal 0.0-0.8 [facility] Comment on above: Performed By: #### H CURLY BMP3 ####[address] Monocytes/100 WBC (Bld) 5.3 % Normal 2.0-10.0 [facility] Comment on above: Performed By: #### H CURLY BMP3 ####[address] Platelet mean volume (Bld) [Entitic vol] 8.9 fL Normal 7.4-10.4 [facility] Comment on above: Performed By: #### H EMDF, BMP3 ####[facility] [employer] [id number] [place], [place] Platelets (Bld) [#/Vol] 723 10*3/uL High 140-440 [facility] Comment on above: Performed By: #### H EMDF, BMP3 ####[facility] [id number] [place], [place] RBC (Bld) [#/Vol] 4.56 10*6/uL Normal 3.80-5.20 [facility] Comment on above: Performed By: #### H EMDF, BMP3 ####[facility] [id number] [place], [place] WBC (Bld) [#/Vol] 14.5 10*3/uL High 3.6-10.7 [facility] Comment on above: Performed By: #### H EMDF, BMP3 ####[address] [place], [place] CULTURE MYCOBACTERIAon 03-13 CULTURE MYCOBACTERIA CULTURE MYCOBACTERI A --> Status: F No acid-fast bacilli isolated after 6 weeks incubation. Normal [facility] Comment on above: Performed By: #### C /TB, S/TB ####[facility] [employer] [id number] [place], [place] CULTURE FUNGUSon 03-08-2021 CULTURE FUNGUS CULTURE FUNGUS --> Status: F No fungus isolated after 21 days. Normal [facility] Comment on above: Performed By: #### S /FUN, C/FUN ####[facility] [employer] [id number] [place], [place] CULTURE FUNGUSon 02-19-2021 CULTURE FUNGUS CULTURE FUNGUS --> Status: F No fungus isolated after 21 days. Normal [facility] Comment on above: Performed By: #### S /FUN, C/FUN ####[facility] [employer] [id number] . [place], [place] CULTURE FUNGUS CULTURE FUNGUS --> Status: F No fungus isolated after 21 days. Normal [facility] Comment on above: Performed By: #### S /FUN, C/FUN ####[address] CULT/STAIN - AEROBIC AND FELY EROBICon 02-18-2021 CULT/STAIN - AEROBIC AND ANAEROBIC STAIN GRAM --> Status: F Few polymorphonuclear cells/lpf. No organisms seen. No organisms seen. CULT./ST. BACTERIA --> Status: F No growth at 3 days. CULTURE ANAEROBE --> Status: F No growth of anaerobes at 5 days. Normal [facility] Comment on above: Performed By: #### C XAAN ####[address] CULTURE MYCOBACTERIA Conc.on 02-14-2021 CULTURE MYCOBACTERIA Conc. CULTURE MYCOBACTERIA Conc. --> Status: F No acid-fast bacilli isolated after 6 weeks incubation. STAIN ACID-FAST --> Status: F No acid-fast bacilli seen in smear. - Method: Fluorescent Stain - Method: Fluorescent Stain Normal [facility] Comment on above: Performed By: #### C /TBC ####[address] Glucose,Bedsideon 02-14-2021 Glucose [Mass/Vol] 153 mg/dL High 70-100 [facility] Comment on above: Result Comment: Test performed by glucose meter. Results may be 10%-15% lowerthan serum/plasma values. (CLIA ID [id number]) Performed By: #### B GLU ####[address] Hemogramon 02-14-2021 Erythrocyte distribution width (RBC) [Ratio] 17.7 % High 11.5-14.5 [facility] Comment on above: Performed By: #### H EMOG ####[address] Hematocrit (Bld) [Volume fraction] 28.7 % Low 35.0-47.0 [facility] Comment on above: Performed By: #### H EMOG ####[address] Hemoglobin (Bld) [Mass/Vol] 8.6 g/dL Low 11.7-16.0 [facility] Comment on above: Performed By: #### H EMOG ####[address] [place], [place] MCH (RBC) [Entitic mass] 27.4 pg Normal 26.0-34.0 [facility] Comment on above: Performed By: #### H EMOG ####[address] [place] MCHC 30.2 % Low 32.0-36.0 [facility] Comment on above: Performed By: #### H EMOG ####[address] [place] MCV (RBC) [Entitic vol] 90.7 fL Normal 79.0-98.0 [facility] Comment on above: Performed By: #### H EMOG ####[address] [place], [place] Platelet mean volume (Bld) [Entitic vol] 7.6 fL Normal 7.4-10.4 [facility] Comment on above: Performed By: #### H EMOG ####[address] [place], [place] Platelets (Bld) [#/Vol] 1210 10*3/uL High 140-440 [facility] Comment on above: Performed By: #### H EMOG ####[address] [place], [place] RBC (Bld) [#/Vol] 3.16 10*6/uL Low 3.80-5.20 [facility] Comment on above: Performed By: #### H EMOG ####[address] [place], [place] WBC (Bld) [#/Vol] 11.4 10*3/uL High 3.6-10.7 [facility] Comment on above: Performed By: #### H EMOG ####[address] [place], [place] Op Noteon 02-14-2021 Op Note Normal [facility] STAIN FUNGUSon 02-14-2021 STAIN FUNGUS STAIN FUNGUS --> Sta tus: F No fungal elements seen. - Method: Direct Exam by Calcofluor Stain - Method: Direct Exam by Calcofluor Stain Normal [facility] Comment on above: Performed By: #### S /FUN, C/FUN ####[address] [place], [place] Hemogramon 02-13-2021 Erythrocyte distribution width (RBC) [Ratio] 17.7 % High 11.5-14.5 [facility] Comment on above: Performed By: #### H EMOG ####[address] [place], [place] Hematocrit (Bld) [Volume fraction] 28.7 % Low 35.0-47.0 [facility] Comment on above: Performed By: #### H EMOG ####[address] [place], [place] Hemoglobin (Bld) [Mass/Vol] 8.8 g/dL Low 11.7-16.0 [facility] Comment on above: Performed By: #### H EMOG ####[address] [place], [place] MCH (RBC) [Entitic mass] 27.8 pg Normal 26.0-34.0 [facility] Comment on above: Performed By: #### H EMOG ####[address] [place] MCHC 30.6 % Low 32.0-36.0 [facility] Comment on above: Performed By: #### H EMOG ####[address] MCV (RBC) [Entitic vol] 90.7 fL Normal 79.0-98.0 [facility] Comment on above: Performed By: #### H EMOG ####[address] Platelet mean volume (Bld) [Entitic vol] 7.6 fL Normal 7.4-10.4 [facility] Comment on above: Performed By: #### H EMOG ####[address] [place], [place] Platelets (Bld) [#/Vol] 1275 10*3/uL High 140-440 [facility] Comment on above: Performed By: #### H EMOG ####[address] [place], [place] RBC (Bld) [#/Vol] 3.17 10*6/uL Low 3.80-5.20 [facility] Comment on above: Performed By: #### H EMOG ####[address] [place], [place] WBC (Bld) [#/Vol] 11.3 10*3/uL High 3.6-10.7 [facility] Comment on above: Performed By: #### H EMOG ####[address] [place], [place] VL Venous Duplex US Lower Ex t Bilateralon 02-13-2021 VL Venous Duplex US Lower Ext Bilateral Normal [facility] CKon 02-12-2021 CK < 20 Low 30-170 [facility] Comment on above: Performed By: #### C K3, HEMOG, CMP3M ####[address] [place], [place] Comp Panel with Mg Reflexon 02-12-2021 ALP [Catalytic activity/Vol] 285 U/L High 38-126 [facility] Comment on above: Performed By: #### C K3, HEMOG, CMP3M ####[address] [place], [place] ALT [Catalytic activity/Vol] 19 U/L Normal 0-34 [facility] Comment on above: Result Comment: The ALT test is performed by an updated assay method.Please note that the reference intervals have beenchanged and are now sex specific. Performed By: #### C K3, HEMOG, CMP3M ####[address] [place], [place] Calcium [Mass/Vol] 9.4 mg/dL Normal 8.4-10.4 [facility] Comment on above: Performed By: #### C K3, HEMOG, CMP3M ####[address] [place], [place] Glucose [Mass/Vol] 106 mg/dL High 70-100 [facility] Comment on above: Performed By: #### C K3, HEMOG, CMP3M ####[address] [place] Urea nitrogen [Mass/Vol] 9 mg/dL Normal 9-20 [facility] Comment on above: Performed By: #### C K3, HEMOG, CMP3M ####[address] [place] Anion gap [Moles/Vol] 6 mmol/L Normal 3-13 [facility] Comment on above: Performed By: #### C K3, HEMOG, CMP3M ####[address] [place] AST [Catalytic activity/Vol] 35 U/L Normal 15-46 [facility] Comment on above: Performed By: #### C K3, HEMOG, CMP3M ####[address] [place] Bilirubin [Mass/Vol] 0.4 mg/dL Normal 0.2-1.3 [facility] Comment on above: Performed By: #### C K3, HEMOG, CMP3M ####[address] [facility] [place], [place] CO2 [Moles/Vol] 28 mmol/L Normal 22-30 [facility] Comment on above: Performed By: #### C K3, HEMOG, CMP3M ####[address] [place] Creatinine [Mass/Vol] 0.65 mg/dL Normal 0.52-1.25 [facility] Comment on above: Performed By: #### C K3, HEMOG, CMP3M ####[address] [facility] [place], [place] eGFR OTHER > 90.0 Normal >60 [facility] Comment on above: Result Comment: KDIG O guidelines provide the following GFR categories:Stage GFR(ml/min/1.73 m2) TermsG1 >=90 Normal or highG2 60-89 Mildly decreased*G3a 45-59 Mildly to moderately kgivazfnbH1b 30-44 Moderately to severely decreasedG4 15-29 Severely [...] secretion. Performed By: #### ANA Barrett CMP3M ####[facility] [employer] [id number] [place], [place] GFR/1.73 sq M.predicted among blacks MDRD (S/P/Bld) [Vol rate/Area] mL/min/{1.73_m2} Normal >60 [facility] Comment on above: Performed By: #### ANA Barrett CMP3M ####[facility] [employer] [id number] [place], [place] Protein [Mass/Vol] 6.4 g/dL Normal 6.3-8.2 [facility] Comment on above: Performed By: #### ANA Barrett CMP3M ####[facility] [employer] [id number] [place], [place] Potassium [Moles/Vol] 4.2 mmol/L Normal 3.5-5.1 [facility] Comment on above: Performed By: #### ANA Barrett CMP3M ####[facility] [employer] [id number] [place], [place] Sodium [Moles/Vol] 138 mmol/L Normal 135-145 [facility] Comment on above: Performed By: #### C K3, HEMOG, CMP3M ####[address] [place], [place] Albumin [Mass/Vol] 3.1 g/dL Low 3.5-5.0 [facility] Comment on above: Performed By: #### C K3, HEMOG, CMP3M ####[address] [place], [place] Chloride [Moles/Vol] 103 mmol/L Normal 98-107 [facility] Comment on above: Performed By: #### C K3, HEMOG, CMP3M ####[address] [place] Hemogramon 02-12-2021 Erythrocyte distribution width (RBC) [Ratio] 16.9 % High 11.5-14.5 [facility] Comment on above: Performed By: #### C K3, HEMOG, CMP3M ####[address] [place] Hematocrit (Bld) [Volume fraction] 27.3 % Low 35.0-47.0 [facility] Comment on above: Performed By: #### C K3, HEMOG, CMP3M ####[address] [place] Hemoglobin (Bld) [Mass/Vol] 8.5 g/dL Low 11.7-16.0 [facility] Comment on above: Performed By: #### C K3, HEMOG, CMP3M ####[address] [place] MCH (RBC) [Entitic mass] 28.3 pg Normal 26.0-34.0 [facility] Comment on above: Performed By: #### C K3, HEMOG, CMP3M ####[address] [place] MCHC 31.3 % Low 32.0-36.0 [facility] Comment on above: Performed By: #### C K3, HEMOG, CMP3M ####[address] [place] MCV (RBC) [Entitic vol] 90.5 fL Normal 79.0-98.0 [facility] Comment on above: Performed By: #### C Surya HEMMELANIA CMP3M ####[address] [place], [place] Platelet mean volume (Bld) [Entitic vol] 7.5 fL Normal 7.4-10.4 [facility] Comment on above: Performed By: #### C Surya HEMOG CMP3M ####[address] [place], [place] Platelets (Bld) [#/Vol] 1249 10*3/uL High 140-440 [facility] Comment on above: Performed By: #### C Surya HEMOG CMP3M ####[address] RBC (Bld) [#/Vol] 3.01 10*6/uL Low 3.80-5.20 [facility] Comment on above: Performed By: #### C K3 HEMOG, CMP3M ####[address] [place] WBC (Bld) [#/Vol] 11.1 10*3/uL High 3.6-10.7 [facility] Comment on above: Performed By: #### C K3, HEMOG, CMP3M ####[address] [place] CULT/STAIN - AEROBIC AND FELY EROBICon 02-11-2021 CULT/STAIN - AEROBIC AND ANAEROBIC Normal [facility] Comment on above: Performed By: #### C ARRON ####[address] [place] [id number] [address] [place], [place] Hemogramon 02-11-2021 Erythrocyte distribution width (RBC) [Ratio] 17.3 % High 11.5-14.5 [facility] Comment on above: Performed By: #### H EMOG ####[address] Hematocrit (Bld) [Volume fraction] 26.8 % Low 35.0-47.0 [facility] Comment on above: Performed By: #### H EMOG ####[address] [place] Hemoglobin (Bld) [Mass/Vol] 8.1 g/dL Low 11.7-16.0 [facility] Comment on above: Performed By: #### H EMOG ####[address] MCH (RBC) [Entitic mass] 27.8 pg Normal 26.0-34.0 [facility] Comment on above: Performed By: #### H EMOG ####[address] [place] MCHC 30.2 % Low 32.0-36.0 [facility] Comment on above: Performed By: #### H EMOG ####[address] MCV (RBC) [Entitic vol] 91.9 fL Normal 79.0-98.0 [facility] Comment on above: Performed By: #### H EMOG ####[address] Platelet mean volume (Bld) [Entitic vol] 7.8 fL Normal 7.4-10.4 [facility] Comment on above: Performed By: #### H EMOG ####[address] Platelets (Bld) [#/Vol] 1210 10*3/uL High 140-440 [facility] Comment on above: Performed By: #### H EMOG ####[address] RBC (Bld) [#/Vol] 2.92 10*6/uL Low 3.80-5.20 [facility] Comment on above: Performed By: #### H EMOG ####[address] WBC (Bld) [#/Vol] 13.3 10*3/uL High 3.6-10.7 [facility] Comment on above: Performed By: #### H EMOG ####[facility] [place], [place] C-Reactive Proteinon CRP [Mass/Vol] 35.6 mg/L High 0.0-9.9 [facility] Comment on above: Result Comment: . Performed By: #### H EMOG, CK3, CMP3, CRP2, ESR ####[address] [place], [place] CKon 02-10-2021 CK < 20 Low 30-170 [facility] Comment on above: Performed By: #### H EMOG, CK3, CMP3, CRP2, ESR ####[address] [place], [place] Comp Metabolic Panelon 02-10 ALP [Catalytic activity/Vol] 209 U/L High 38-126 [facility] Comment on above: Performed By: #### H EMOG, CK3, CMP3, CRP2, ESR ####[address] [place], [place] ALT [Catalytic activity/Vol] 15 U/L Normal 0-34 [facility] Comment on above: Result Comment: The ALT test is performed by an updated assay method.Please note that the reference intervals have beenchanged and are now sex specific. Performed By: #### H EMOG, CK3, CMP3, CRP2, ESR ####[address] [place], [place] AST [Catalytic activity/Vol] 35 U/L Normal 15-46 [facility] Comment on above: Performed By: #### H EMOG, CK3, CMP3, CRP2, ESR ####[address] [place], [place] Bilirubin [Mass/Vol] 0.5 mg/dL Normal 0.2-1.3 [facility] Comment on above: Performed By: #### H EMOG, CK3, CMP3, CRP2, ESR ####[address] [address] [place], [place] Calcium [Mass/Vol] 9.2 mg/dL Normal 8.4-10.4 [facility] Comment on above: Performed By: #### H EMOG, CK3, CMP3, CRP2, ESR ####[address] [place], [place] Glucose [Mass/Vol] 86 mg/dL Normal 70-100 [facility] Comment on above: Performed By: #### H EMOG, CK3, CMP3, CRP2, ESR ####[address] Protein [Mass/Vol] 6.4 g/dL Normal 6.3-8.2 [facility] Comment on above: Performed By: #### H EMOG, CK3, CMP3, CRP2, ESR ####[address] Urea nitrogen [Mass/Vol] 15 mg/dL Normal 9-20 [facility] Comment on above: Performed By: #### H EMOG, CK3, CMP3, CRP2, ESR ####[address] Anion gap [Moles/Vol] 6 mmol/L Normal 3-13 [facility] Comment on above: Performed By: #### H EMOG, CK3, CMP3, CRP2, ESR ####[address] CO2 [Moles/Vol] 29 mmol/L Normal 22-30 [facility] Comment on above: Performed By: #### H EMOG, CK3, CMP3, CRP2, ESR ####[address] Creatinine [Mass/Vol] 0.74 mg/dL Normal 0.52-1.25 [facility] Comment on above: Performed By: #### H EMOG, CK3, CMP3, CRP2, ESR ####[facility] [employer] [id number] [place], [place] eGFR OTHER > 90.0 Normal >60 [facility] Comment on above: Result Comment: KDIG O guidelines provide the following GFR categories:Stage GFR(ml/min/1.73 m2) TermsG1 >=90 Normal or highG2 60-89 Mildly decreased*G3a 45-59 Mildly to moderately tmlcjlztcV7c 30-44 Moderately to severely decreasedG4 15-29 Severely [...] #### H EMOG, CK3, CMP3, CRP2, ESR ####[facility] [employer] [place], [place] GFR/1.73 sq M.predicted among blacks MDRD (S/P/Bld) [Vol rate/Area] mL/min/{1.73_m2} Normal >60 [facility] Comment on above: Performed By: #### H EMOG, CK3, CMP3, CRP2, ESR ####[facility] [employer] [place], [place] Albumin [Mass/Vol] 3.1 g/dL Low 3.5-5.0 [facility] Comment on above: Performed By: #### H EMOG, CK3, CMP3, CRP2, ESR ####[facility] [employer] [place], [place] Chloride [Moles/Vol] 102 mmol/L Normal 98-107 [facility] Comment on above: Performed By: #### H EMOG, CK3, CMP3, CRP2, ESR ####[facility] [employer] [id number] [place], [place] Potassium [Moles/Vol] 4.5 mmol/L Normal 3.5-5.1 [facility] Comment on above: Performed By: #### H EMOG, CK3, CMP3, CRP2, ESR ####[address] [place] Sodium [Moles/Vol] 137 mmol/L Normal 135-145 [facility] Comment on above: Performed By: #### H EMOG, CK3, CMP3, CRP2, ESR ####[address] Hemogramon 02-10-2021 Erythrocyte distribution width (RBC) [Ratio] 17.0 % High 11.5-14.5 [facility] Comment on above: Performed By: #### H EMOG, CK3, CMP3, CRP2, ESR ####[address] Hematocrit (Bld) [Volume fraction] 27.2 % Low 35.0-47.0 [facility] Comment on above: Performed By: #### H EMOG, CK3, CMP3, CRP2, ESR ####[address] Hemoglobin (Bld) [Mass/Vol] 8.4 g/dL Low 11.7-16.0 [facility] Comment on above: Performed By: #### H EMOG, CK3, CMP3, CRP2, ESR ####[address] MCH (RBC) [Entitic mass] 27.9 pg Normal 26.0-34.0 [facility] Comment on above: Performed By: #### H EMOG, CK3, CMP3, CRP2, ESR ####[address] [place], [place] MCHC 30.9 % Low 32.0-36.0 [facility] Comment on above: Performed By: #### H EMOG, CK3, CMP3, CRP2, ESR ####[address], [place] MCV (RBC) [Entitic vol] 90.4 fL Normal 79.0-98.0 [facility] Comment on above: Performed By: #### H EMOG, CK3, CMP3, CRP2, ESR ####[address] Platelet mean volume (Bld) [Entitic vol] 7.6 fL Normal 7.4-10.4 [facility] Comment on above: Performed By: #### H EMOG, CK3, CMP3, CRP2, ESR ####[address] Platelets (Bld) [#/Vol] 1318 10*3/uL High 140-440 [facility] Comment on above: Performed By: #### H EMOG, CK3, CMP3, CRP2, ESR ####[address] RBC (Bld) [#/Vol] 3.01 10*6/uL Low 3.80-5.20 [facility] Comment on above: Performed By: #### H EMOG, CK3, CMP3, CRP2, ESR ####[address] WBC (Bld) [#/Vol] 13.1 10*3/uL High 3.6-10.7 [facility] Comment on above: Performed By: #### H EMOG, CK3, CMP3, CRP2, ESR ####[address] Sed Rateon 02-10-2021 Sed Rate 84 mm/h High 0-20 [facility] Comment on above: Performed By: #### H EMOG, CK3, CMP3, CRP2, ESR ####[address] Hemogramon 02-09-2021 Erythrocyte distribution width (RBC) [Ratio] 17.1 % High 11.5-14.5 [facility] Comment on above: Performed By: #### H EMOG ####[address] [place], [place] Hematocrit (Bld) [Volume fraction] 26.4 % Low 35.0-47.0 [facility] Comment on above: Performed By: #### H EMOG ####[address] [place], [place] Hemoglobin (Bld) [Mass/Vol] 8.2 g/dL Low 11.7-16.0 [facility] Comment on above: Performed By: #### H EMOG ####[address] MCH (RBC) [Entitic mass] 28.1 pg Normal 26.0-34.0 [facility] Comment on above: Performed By: #### H EMOG ####[address] MCHC 31.0 % Low 32.0-36.0 [facility] Comment on above: Performed By: #### H EMOG ####[address] MCV (RBC) [Entitic vol] 90.6 fL Normal 79.0-98.0 [facility] Comment on above: Performed By: #### H EMOG ####[address] Platelet mean volume (Bld) [Entitic vol] 7.6 fL Normal 7.4-10.4 [facility] Comment on above: Performed By: #### H EMOG ####[address] Platelets (Bld) [#/Vol] 1199 10*3/uL High 140-440 [facility] Comment on above: Performed By: #### H EMOG ####[address] RBC (Bld) [#/Vol] 2.92 10*6/uL Low 3.80-5.20 [facility] Comment on above: Performed By: #### H EMOG ####[address] [place] WBC (Bld) [#/Vol] 11.5 10*3/uL High 3.6-10.7 [facility] Comment on above: Performed By: #### H EMOG ####[address] Hemogramon 02-08-2021 Erythrocyte distribution width (RBC) [Ratio] 16.7 % High 11.5-14.5 [facility] Comment on above: Performed By: #### H EMOG ####[address] Hematocrit (Bld) [Volume fraction] 26.7 % Low 35.0-47.0 [facility] Comment on above: Performed By: #### H EMOG ####[address] Hemoglobin (Bld) [Mass/Vol] 8.3 g/dL Low 11.7-16.0 [facility] Comment on above: Performed By: #### H EMOG ####[address] [place] MCH (RBC) [Entitic mass] 27.9 pg Normal 26.0-34.0 [facility] Comment on above: Performed By: #### H EMOG ####[address] [place] MCHC 31.1 % Low 32.0-36.0 [facility] Comment on above: Performed By: #### H EMOG ####[address] MCV (RBC) [Entitic vol] 89.7 fL Normal 79.0-98.0 [facility] Comment on above: Performed By: #### H EMOG ####[address] Platelet mean volume (Bld) [Entitic vol] 7.7 fL Normal 7.4-10.4 [facility] Comment on above: Performed By: #### H EMOG ####[facility] [place], [place] Platelets (Bld) [#/Vol] 1217 10*3/uL High 140-440 [facility] Comment on above: Performed By: #### H EMOG ####[facility] [place] RBC (Bld) [#/Vol] 2.97 10*6/uL Low 3.80-5.20 [facility] Comment on above: Performed By: #### H EMOG ####[address] [place], [place] WBC (Bld) [#/Vol] 13.4 10*3/uL High 3.6-10.7 [facility] Comment on above: Performed By: #### H EMOG ####[address] [place], [place] Op Noteon 02-08-2021 Op Note Normal [facility] VL Venous Duplex US Lower Ex t Bilateralon 02-08-2021 VL Venous Duplex US Lower Ext Bilateral Normal [facility] HCG,Urine Qualon 02-07-2021 Beta HCG ( test) Ql (U) Negative Normal Negative [facility] Comment on above: Result Comment: Plea se note: Very dilute urine specimens, as indicated by a low specificgravity, may not contain field marketing representative levels of hCG. If is stillsuspected, a first morning urine specimen should be collected 48 hours laterand tested. is the most common reason for HCG in urine, althoughchoriocarcinoma, hydatidiform mole, and certain nontropho-blastic malignancies also result in detectable urinary HCGlevels. Sensitivity = 20mIU/mL. Performed By: #### H CGUR ####[facility] [place], [place] Hemogramon 02-07-2021 Erythrocyte distribution width (RBC) [Ratio] 16.8 % High 11.5-14.5 [facility] Comment on above: Performed By: #### H EMOG ####[address] [place] Hematocrit (Bld) [Volume fraction] 26.0 % Low 35.0-47.0 [facility] Comment on above: Performed By: #### H EMOG ####[address] [place] Hemoglobin (Bld) [Mass/Vol] 8.0 g/dL Low 11.7-16.0 [facility] Comment on above: Performed By: #### H EMOG ####[address] MCH (RBC) [Entitic mass] 27.8 pg Normal 26.0-34.0 [facility] Comment on above: Performed By: #### H EMOG ####[address] MCHC 30.9 % Low 32.0-36.0 [facility] Comment on above: Performed By: #### H EMOG ####[address] MCV (RBC) [Entitic vol] 90.0 fL Normal 79.0-98.0 [facility] Comment on above: Performed By: #### H EMOG ####[address] Platelet mean volume (Bld) [Entitic vol] 7.6 fL Normal 7.4-10.4 [facility] Comment on above: Performed By: #### H EMOG ####[address] Platelets (Bld) [#/Vol] 1236 10*3/uL High 140-440 [facility] Comment on above: Performed By: #### H EMOG ####[address] RBC (Bld) [#/Vol] 2.89 10*6/uL Low 3.80-5.20 [facility] Comment on above: Performed By: #### H EMOG ####[address] WBC (Bld) [#/Vol] 15.2 10*3/uL High 3.6-10.7 [facility] Comment on above: Performed By: #### H EMOG ####[address] Glucose,Bedsideon 02-06-2021 Glucose [Mass/Vol] 119 mg/dL High 70-100 [facility] Comment on above: Result Comment: Test performed by glucose meter. Results may be 10%-15% lowerthan serum/plasma values. (CLIA ID [id number]) Performed By: #### B GLU ####[address] Hemogramon 02-06-2021 Erythrocyte distribution width (RBC) [Ratio] 17.0 % High 11.5-14.5 [facility] Comment on above: Performed By: #### H EMOG ####[address] Hematocrit (Bld) [Volume fraction] 26.2 % Low 35.0-47.0 [facility] Comment on above: Performed By: #### H EMOG ####[address] [place], [place] Hemoglobin (Bld) [Mass/Vol] 8.0 g/dL Low 11.7-16.0 [facility] Comment on above: Performed By: #### H EMOG ####[address] MCH (RBC) [Entitic mass] 27.9 pg Normal 26.0-34.0 [facility] Comment on above: Performed By: #### H EMOG ####[address] MCHC 30.7 % Low 32.0-36.0 [facility] Comment on above: Performed By: #### H EMOG ####[address] MCV (RBC) [Entitic vol] 90.8 fL Normal 79.0-98.0 [facility] Comment on above: Performed By: #### H EMOG ####[address] [place] Platelet mean volume (Bld) [Entitic vol] 7.6 fL Normal 7.4-10.4 [facility] Comment on above: Performed By: #### H EMOG ####[address] [place] Platelets (Bld) [#/Vol] 1130 10*3/uL High 140-440 [facility] Comment on above: Performed By: #### H EMOG ####[address] [place] RBC (Bld) [#/Vol] 2.88 10*6/uL Low 3.80-5.20 [facility] Comment on above: Performed By: #### H EMOG ####[address] WBC (Bld) [#/Vol] 16.9 10*3/uL High 3.6-10.7 [facility] Comment on above: Performed By: #### H EMOG ####[address] [place], [place] Glucose,Bedsideon 02-05-2021 Glucose [Mass/Vol] 132 mg/dL High 70-100 [facility] Comment on above: Result Comment: Test performed by glucose meter. Results may be 10%-15% lowerthan serum/plasma values. (CLIA ID [id number]) Performed By: #### B GLU ####[address] Hemogramon 02-05-2021 Erythrocyte distribution width (RBC) [Ratio] 16.7 % High 11.5-14.5 [facility] Comment on above: Performed By: #### H EMOG ####[address] [place] Hematocrit (Bld) [Volume fraction] 25.3 % Low 35.0-47.0 [facility] Comment on above: Performed By: #### H EMOG ####[address] [place] Hemoglobin (Bld) [Mass/Vol] 8.0 g/dL Low 11.7-16.0 [facility] Comment on above: Performed By: #### H EMOG ####[address] MCH (RBC) [Entitic mass] 28.7 pg Normal 26.0-34.0 [facility] Comment on above: Performed By: #### H EMOG ####[address] MCHC 31.5 % Low 32.0-36.0 [facility] Comment on above: Performed By: #### H EMOG ####[address] MCV (RBC) [Entitic vol] 91.1 fL Normal 79.0-98.0 [facility] Comment on above: Performed By: #### H EMOG ####[address] Platelet mean volume (Bld) [Entitic vol] 8.1 fL Normal 7.4-10.4 [facility] Comment on above: Performed By: #### H EMOG ####[address] Platelets (Bld) [#/Vol] 1096 10*3/uL High 140-440 [facility] Comment on above: Performed By: #### H EMOG ####[address] RBC (Bld) [#/Vol] 2.77 10*6/uL Low 3.80-5.20 [facility] Comment on above: Performed By: #### H EMOG ####[address] WBC (Bld) [#/Vol] 16.7 10*3/uL High 3.6-10.7 [facility] Comment on above: Performed By: #### H EMOG ####[address] [place], [place] VL Venous Duplex US Lower Ex t Bilateralon 02-05-2021 VL Venous Duplex US Lower Ext Bilateral Normal [facility] Hemogramon 02-04-2021 Erythrocyte distribution width (RBC) [Ratio] 16.8 % High 11.5-14.5 [facility] Comment on above: Performed By: #### H EMOG ####[address] [place] Hematocrit (Bld) [Volume fraction] 24.8 % Low 35.0-47.0 [facility] Comment on above: Performed By: #### H EMOG ####[address] [place] Hemoglobin (Bld) [Mass/Vol] 7.7 g/dL Low 11.7-16.0 [facility] Comment on above: Performed By: #### H EMOG ####[address] [place] MCH (RBC) [Entitic mass] 28.3 pg Normal 26.0-34.0 [facility] Comment on above: Performed By: #### H EMOG ####[address] [place] MCHC 30.8 % Low 32.0-36.0 [facility] Comment on above: Performed By: #### H EMOG ####[address] [place] MCV (RBC) [Entitic vol] 91.8 fL Normal 79.0-98.0 [facility] Comment on above: Performed By: #### H EMOG ####[address] Platelet mean volume (Bld) [Entitic vol] 8.1 fL Normal 7.4-10.4 [facility] Comment on above: Performed By: #### H EMOG ####[facility] [address] [place], [place] Platelets (Bld) [#/Vol] 978 10*3/uL High 140-440 [facility] Comment on above: Performed By: #### H EMOG ####[address] [place], [place] RBC (Bld) [#/Vol] 2.71 10*6/uL Low 3.80-5.20 [facility] Comment on above: Performed By: #### H EMOG ####[address] . [place], [place] WBC (Bld) [#/Vol] 17.4 10*3/uL High 3.6-10.7 [facility] Comment on above: Performed By: #### H EMOG ####[address] [place], [place] CULTURE ANAEROBEon CULTURE ANAEROBE CULTURE ANAEROBE --> Status: F No growth of anaerobes at 5 days. Normal [facility] Comment on above: Performed By: #### C XTIS ####[facility] [place] [address] [facility] [address] [place], [place] #### C/FELY ####[address] [place], [place] CULTURE ANAEROBE CULTURE ANAEROBE --> Status: F No growth of anaerobes at 5 days. Normal [facility] Comment on above: Performed By: #### C XTIS, C/FELY ####[address] [place], [place] Hemogramon 02-03-2021 Erythrocyte distribution width (RBC) [Ratio] 16.2 % High 11.5-14.5 [facility] Comment on above: Performed By: #### H EMOG ####[address] [place], [place] Hematocrit (Bld) [Volume fraction] 26.0 % Low 35.0-47.0 [facility] Comment on above: Performed By: #### H EMOG ####[address] [place] Hemoglobin (Bld) [Mass/Vol] 8.0 g/dL Low 11.7-16.0 [facility] Comment on above: Performed By: #### H EMOG ####[address] [place] MCH (RBC) [Entitic mass] 27.9 pg Normal 26.0-34.0 [facility] Comment on above: Performed By: #### H EMOG ####[address] [place] MCHC 30.8 % Low 32.0-36.0 [facility] Comment on above: Performed By: #### H EMOG ####[address] MCV (RBC) [Entitic vol] 90.5 fL Normal 79.0-98.0 [facility] Comment on above: Performed By: #### H EMOG ####[address] Platelet mean volume (Bld) [Entitic vol] 8.1 fL Normal 7.4-10.4 [facility] Comment on above: Performed By: #### H EMOG ####[address] [place] Platelets (Bld) [#/Vol] 956 10*3/uL High 140-440 [facility] Comment on above: Performed By: #### H EMOG ####[address] RBC (Bld) [#/Vol] 2.88 10*6/uL Low 3.80-5.20 [facility] Comment on above: Performed By: #### H EMOG ####[address] WBC (Bld) [#/Vol] 17.4 10*3/uL High 3.6-10.7 [facility] Comment on above: Performed By: #### H EMOG ####[address] Hemogramon 02-02-2021 Erythrocyte distribution width (RBC) [Ratio] 15.9 % High 11.5-14.5 [facility] Comment on above: Performed By: #### H EMOG ####[address] Hematocrit (Bld) [Volume fraction] 25.3 % Low 35.0-47.0 [facility] Comment on above: Performed By: #### H EMOG ####[address] Hemoglobin (Bld) [Mass/Vol] 8.0 g/dL Low 11.7-16.0 [facility] Comment on above: Performed By: #### H EMOG ####[address] MCH (RBC) [Entitic mass] 28.8 pg Normal 26.0-34.0 [facility] Comment on above: Performed By: #### H EMOG ####[address] MCHC 31.7 % Low 32.0-36.0 [facility] Comment on above: Performed By: #### H EMOG ####[address] MCV (RBC) [Entitic vol] 91.0 fL Normal 79.0-98.0 [facility] Comment on above: Performed By: #### H EMOG ####[address] Platelet mean volume (Bld) [Entitic vol] 8.2 fL Normal 7.4-10.4 [facility] Comment on above: Performed By: #### H EMOG ####[address] Platelets (Bld) [#/Vol] 873 10*3/uL High 140-440 [facility] Comment on above: Performed By: #### H EMOG ####[address] [place], [place] RBC (Bld) [#/Vol] 2.78 10*6/uL Low 3.80-5.20 [facility] Comment on above: Performed By: #### H EMOG ####[address] WBC (Bld) [#/Vol] 16.3 10*3/uL High 3.6-10.7 [facility] Comment on above: Performed By: #### H EMOG ####[address] CULTURE AND STAIN - TISSUEon 02-01-2021 CULTURE AND STAIN - TISSUE Normal [facility] Comment on above: Performed By: #### C XTIS, C/FELY ####[address] CULTURE AND STAIN - TISSUE Normal [facility] Comment on above: Performed By: #### C XTIS ####[address] [place] [address] [address] [place], [place] #### C/FELY ####[address] Glucose,Bedsideon 02-01-2021 Glucose [Mass/Vol] 140 mg/dL High 70-100 [facility] Comment on above: Result Comment: Test performed by glucose meter. Results may be 10%-15% lowerthan serum/plasma values. (CLIA ID [id number]) Performed By: #### B GLU ####[address] Hemogramon 02-01-2021 Erythrocyte distribution width (RBC) [Ratio] 15.7 % High 11.5-14.5 [facility] Comment on above: Performed By: #### H EMOG ####[address] [place] Hematocrit (Bld) [Volume fraction] 24.8 % Low 35.0-47.0 [facility] Comment on above: Performed By: #### H EMOG ####[address] [place] Hemoglobin (Bld) [Mass/Vol] 7.7 g/dL Low 11.7-16.0 [facility] Comment on above: Performed By: #### H EMOG ####[address] MCH (RBC) [Entitic mass] 28.1 pg Normal 26.0-34.0 [facility] Comment on above: Performed By: #### H EMOG ####[address] MCHC 31.1 % Low 32.0-36.0 [facility] Comment on above: Performed By: #### H EMOG ####[address] MCV (RBC) [Entitic vol] 90.5 fL Normal 79.0-98.0 [facility] Comment on above: Performed By: #### H EMOG ####[address] Platelet mean volume (Bld) [Entitic vol] 8.8 fL Normal 7.4-10.4 [facility] Comment on above: Performed By: #### H EMOG ####[address] Platelets (Bld) [#/Vol] 819 10*3/uL High 140-440 [facility] Comment on above: Performed By: #### H EMOG ####[address] RBC (Bld) [#/Vol] 2.74 10*6/uL Low 3.80-5.20 [facility] Comment on above: Performed By: #### H EMOG ####[address] [place] WBC (Bld) [#/Vol] 13.6 10*3/uL High 3.6-10.7 [facility] Comment on above: Performed By: #### H EMOG ####[address] [place], [place] Hepatitis C RNA Quanton 01-17 Hep C RNA Quant (log) 7.17 {Log_IU} Abnormal <1.18 [facility] Comment on above: Performed By: #### C K3, HCVQ ####[address] [place], [place] Hepatitis C RNA Quant [id number] [IU]/mL Abnormal <15 [facility] Comment on above: Performed By: #### C K3, HCVQ ####[address] [place] Leukodepleted Red Cellson Leukodepleted Red Cells Normal [facility] Comment on above: Performed By: #### T SGL ####[facility]#### [facility] ####[address] [address] VL Venous Duplex US Lower Ex t Bilateralon 02-01-2021 VL Venous Duplex US Lower Ext Bilateral Normal [facility] CKon 01-31-2021 CK [Catalytic activity/Vol] 91 U/L Normal 30-170 [facility] Comment on above: Performed By: #### C K3, HCVQ ####[address] [place], [place] CR Chest Portableon 02-01-20 21 CR Chest Portable Normal [facility] Hemogramon 01-31-2021 Erythrocyte distribution width (RBC) [Ratio] 16.0 % High 11.5-14.5 [facility] Comment on above: Performed By: #### H EMOG ####[address] [place] Hematocrit (Bld) [Volume fraction] 23.9 % Low 35.0-47.0 [facility] Comment on above: Performed By: #### H EMOG ####[address] . [place], [place] Hemoglobin (Bld) [Mass/Vol] 7.3 g/dL Low 11.7-16.0 [facility] Comment on above: Performed By: #### H EMOG ####[address] MCH (RBC) [Entitic mass] 27.7 pg Normal 26.0-34.0 [facility] Comment on above: Performed By: #### H EMOG ####[address] MCHC 30.6 % Low 32.0-36.0 [facility] Comment on above: Performed By: #### H EMOG ####[address] MCV (RBC) [Entitic vol] 90.4 fL Normal 79.0-98.0 [facility] Comment on above: Performed By: #### H EMOG ####[address] Platelet mean volume (Bld) [Entitic vol] 8.9 fL Normal 7.4-10.4 [facility] Comment on above: Performed By: #### H EMOG ####[address] Platelets (Bld) [#/Vol] 765 10*3/uL High 140-440 [facility] Comment on above: Performed By: #### H EMOG ####[address] RBC (Bld) [#/Vol] 2.64 10*6/uL Low 3.80-5.20 [facility] Comment on above: Performed By: #### H EMOG ####[address] WBC (Bld) [#/Vol] 14.9 10*3/uL High 3.6-10.7 [facility] Comment on above: Performed By: #### H EMOG ####[facility] [employer] [id number] [place], [place] Basic Metabolic Panelon 01-17 Calcium [Mass/Vol] 9.7 mg/dL Normal 8.4-10.4 [facility] Comment on above: Performed By: #### H DAYLIN BMP3M ####[facility] [employer] [id number] [place], [place] Glucose [Mass/Vol] 109 mg/dL High 70-100 [facility] Comment on above: Performed By: #### H DAYLIN BMP3M ####[facility] [employer] [id number] [place], [place] Anion gap [Moles/Vol] 14 mmol/L High 3-13 [facility] Comment on above: Performed By: #### H DAYLIN BMP3M ####[facility] [employer] [id number] [place], [place] CO2 [Moles/Vol] 26 mmol/L Normal 22-30 [facility] Comment on above: Performed By: #### H DAYLIN BMP3M ####[facility] [employer] [id number] [place], [place] Creatinine [Mass/Vol] 0.69 mg/dL Normal 0.52-1.25 [facility] Comment on above: Performed By: #### H EMOJoi BMP3M ####[facility] [employer] [id number] [place], [place] eGFR OTHER > 90.0 Normal >60 [facility] Comment on above: Result Comment: KDIG O guidelines provide the following GFR categories:Stage GFR(ml/min/1.73 m2) TermsG1 >=90 Normal or highG2 60-89 Mildly decreased*G3a 45-59 Mildly to moderately ewkhfipjhC3y 30-44 Moderately to severely decreasedG4 15-29 Severely [...] creatinine secretion. Performed By: #### ZACH WILHELM3M ####[address] [place], [place] GFR/1.73 sq M.predicted among blacks MDRD (S/P/Bld) [Vol rate/Area] mL/min/{1.73_m2} Normal >60 [facility] Comment on above: Performed By: #### ZACH WILHELM3M ####[address] Urea nitrogen [Mass/Vol] 9 mg/dL Normal 9-20 [facility] Comment on above: Performed By: #### ZACH WILHELM3M ####[address] Chloride [Moles/Vol] 98 mmol/L Normal 98-107 [facility] Comment on above: Performed By: #### ZACH WILHELM3M ####[address] Potassium [Moles/Vol] 4.5 mmol/L Normal 3.5-5.1 [facility] Comment on above: Performed By: #### ZACH WILHELM3M ####[address] [place] Sodium [Moles/Vol] 139 mmol/L Normal 135-145 [facility] Comment on above: Performed By: #### ZACH WILHELM3M ####[address] CR Chest Portableon 01-31-20 21 CR Chest Portable Normal [facility] CULT/STAIN - AEROBIC AND FELY EROBICon 01-30-2021 CULT/STAIN - AEROBIC AND ANAEROBIC Normal [facility] Comment on above: Performed By: #### S /GRM ####[address] #### CXAAN ####[address] [id number] CULTURE MYCOBACTERIAon 01-30 CULTURE MYCOBACTERIA CULTURE MYCOBACTERI A --> Status: F No acid-fast bacilli isolated after 6 weeks incubation. STAIN ACID-FAST --> Status: F No acid-fast bacilli seen in smear. - Method: Fluorescent Stain - Method: Fluorescent Stain Normal [facility] Comment on above: Performed By: #### C /TB ####[address] Hemogramon 01-30-2021 Erythrocyte distribution width (RBC) [Ratio] 15.9 % High 11.5-14.5 [facility] Comment on above: Performed By: #### H ZACH MAO3Ward ####[address] Hematocrit (Bld) [Volume fraction] 32.0 % Low 35.0-47.0 [facility] Comment on above: Performed By: #### H ZACH MAO3Ward ####[address] [place] Hemoglobin (Bld) [Mass/Vol] 10.0 g/dL Low 11.7-16.0 [facility] Comment on above: Performed By: #### H ZACH MAO3Ward ####[address] MCH (RBC) [Entitic mass] 28.3 pg Normal 26.0-34.0 [facility] Comment on above: Performed By: #### H ZACH MAO3Ward ####[address] [place] MCHC 31.3 % Low 32.0-36.0 [facility] Comment on above: Performed By: #### JACOBY WILHELM ####[address] MCV (RBC) [Entitic vol] 90.3 fL Normal 79.0-98.0 [facility] Comment on above: Performed By: #### ZACH WILHELM3Ward ####[address] [place] Platelet mean volume (Bld) [Entitic vol] 8.9 fL Normal 7.4-10.4 [facility] Comment on above: Performed By: #### ZACH WILHELM3M ####[address] Platelets (Bld) [#/Vol] 862 10*3/uL High 140-440 [facility] Comment on above: Performed By: #### ZACH WILHELM3M ####[address] RBC (Bld) [#/Vol] 3.54 10*6/uL Low 3.80-5.20 [facility] Comment on above: Performed By: #### ZACH WILHELM3M ####[address] WBC (Bld) [#/Vol] 21.3 10*3/uL High 3.6-10.7 [facility] Comment on above: Performed By: #### ZACH WILHELM3M ####[address] Hepatitis C RNA Quanton 01-17 Note Interpretation Normal [facility] Comment on above: Result Comment: The linear detection limit for this assay is 15 HCV IU/ml.A result of <15 IU (<1.18 log IU) indicates that HCVwas detected, but at a level below the linear cutoff.A result of None Detected means that no HCV RNA was detected. Performed By: #### C K3, HCVQ ####[address] STAIN ACID-FASTon 01-30-2021 STAIN ACID-FAST STAIN ACID-FAST --> Status: F No acid-fast bacilli seen in smear. - Method: Fluorescent Stain - Method: Fluorescent Stain Normal [facility] Comment on above: Performed By: #### C /TB, S/TB ####[address] [place], [place] STAIN FUNGUSon 01-30-2021 STAIN FUNGUS STAIN FUNGUS --> Sta tus: F No fungal elements seen. - Method: Direct Exam by Calcofluor Stain - Method: Direct Exam by Calcofluor Stain Normal [facility] Comment on above: Performed By: #### S /FUN, C/FUN ####[address] [place], [place] VL Venous Duplex US Lower Ex t Bilateralon 01-30-2021 VL Venous Duplex US Lower Ext Bilateral Normal [facility] Vancomycin Troughon 01-31-20 Vancomycin Trough 8.7 ug/mL Low 15.0-20.0 [facility] Comment on above: Result Comment: . Performed By: #### V ANCT ####[address] [place], [place] Basic Metabolic Panelon 01-17 Calcium [Mass/Vol] 9.6 mg/dL Normal 8.4-10.4 [facility] Comment on above: Performed By: #### B MP3M, HEMOG ####[address] [place], [place] Glucose [Mass/Vol] 92 mg/dL Normal 70-100 [facility] Comment on above: Performed By: #### B MP3M, HEMOG ####[address] [place], [place] Anion gap [Moles/Vol] 5 mmol/L Normal 3-13 [facility] Comment on above: Performed By: #### B MP3M, HEMOG ####[facility] [employer] [id number] [place], [place] CO2 [Moles/Vol] 29 mmol/L Normal 22-30 [facility] Comment on above: Performed By: #### B MP3M, HEMOG ####[address] [place], [place] Creatinine [Mass/Vol] 0.58 mg/dL Normal 0.52-1.25 [facility] Comment on above: Performed By: #### Jacek ALBRIGHT3Ward HEMOG ####[address] [place], [place] eGFR OTHER > 90.0 Normal >60 [facility] Comment on above: Result Comment: KDIG O guidelines provide the following GFR categories:Stage GFR(ml/min/1.73 m2) TermsG1 >=90 Normal or highG2 60-89 Mildly decreased*G3a 45-59 Mildly to moderately lirndwyqfY5m 30-44 Moderately to severely decreasedG4 15-29 Severely [...] secretion. Performed By: #### Jacek VILLANUEVA HEMOG ####[address] [place], [place] GFR/1.73 sq M.predicted among blacks MDRD (S/P/Bld) [Vol rate/Area] mL/min/{1.73_m2} Normal >60 [facility] Comment on above: Performed By: #### Jacek VILLANUEVA HEMOG ####[address] [place], [place] Urea nitrogen [Mass/Vol] 11 mg/dL Normal 9-20 [facility] Comment on above: Performed By: #### Jacek ALBRIGHT3Ward HEMOG ####[address] [place], [place] Chloride [Moles/Vol] 100 mmol/L Normal 98-107 [facility] Comment on above: Performed By: #### Jacek ALBRIGHT3M, HEMOG ####[facility] Potassium [Moles/Vol] 5.2 mmol/L High 3.5-5.1 [facility] Comment on above: Performed By: #### B MP3M, HEMOG ####[facility] [facility] [address] Sodium [Moles/Vol] 134 mmol/L Low 135-145 [facility] Comment on above: Performed By: #### B MP3M, HEMOG ####[facility], [place] Comp Metabolic Panelon 01-29 ALT [Catalytic activity/Vol] 17 U/L Normal 0-34 [facility] Comment on above: Result Comment: The ALT test is performed by an updated assay method.Please note that the reference intervals have beenchanged and are now sex specific. Performed By: #### C MP3, HEMOG ####[address] [facility] [place] Calcium [Mass/Vol] 8.4 mg/dL Normal 8.4-10.4 [facility] Comment on above: Performed By: #### C MP3, HEMOG ####[address] [facility] [place] Glucose [Mass/Vol] 151 mg/dL High 70-100 [facility] Comment on above: Performed By: #### C MP3, HEMOG ####[address] [facility] ALP [Catalytic activity/Vol] 251 U/L High 38-126 [facility] Comment on above: Performed By: #### C MP3, HEMOG ####[facility] [facility] [address] Anion gap [Moles/Vol] 9 mmol/L Normal 3-13 [facility] Comment on above: Performed By: #### C MP3, HEMOG ####[address] [facility] [address] AST [Catalytic activity/Vol] 31 U/L Normal 15-46 [facility] Comment on above: Performed By: #### C MP3, HEMOG ####[facility] [place], [place] Bilirubin [Mass/Vol] 0.4 mg/dL Normal 0.2-1.3 [facility] Comment on above: Performed By: #### C MP3, HEMOG ####[facility] [place], [place] CO2 [Moles/Vol] 25 mmol/L Normal 22-30 [facility] Comment on above: Performed By: #### C MP3, HEMOG ####[address] [place], [place] Creatinine [Mass/Vol] 0.61 mg/dL Normal 0.52-1.25 [facility] Comment on above: Performed By: #### C MP3, HEMOG ####[address] [place], [place] eGFR OTHER > 90.0 Normal >60 [facility] Comment on above: Result Comment: KDIG O guidelines provide the following GFR categories:Stage GFR(ml/min/1.73 m2) TermsG1 >=90 Normal or highG2 60-89 Mildly decreased*G3a 45-59 Mildly to moderately wrffzniboS0d 30-44 Moderately to severely decreasedG4 15-29 Severely [...] secretion. Performed By: #### C MP3, HEMOG ####[facility] [place], [place] GFR/1.73 sq M.predicted among blacks MDRD (S/P/Bld) [Vol rate/Area] mL/min/{1.73_m2} Normal >60 [facility] Comment on above: Performed By: #### C MP3, HEMOG ####[address] [place], [place] Protein [Mass/Vol] 5.9 g/dL Low 6.3-8.2 [facility] Comment on above: Performed By: #### C MP3, HEMOG ####[address] [place], [place] Urea nitrogen [Mass/Vol] 10 mg/dL Normal 9-20 [facility] Comment on above: Performed By: #### C MP3, HEMOG ####[address] [place], [place] Potassium [Moles/Vol] 4.6 mmol/L Normal 3.5-5.1 [facility] Comment on above: Performed By: #### C MP3, HEMOG ####[address] [place], [place] Sodium [Moles/Vol] 138 mmol/L Normal 135-145 [facility] Comment on above: Performed By: #### C MP3, HEMOG ####[address] [place] Albumin [Mass/Vol] 3.3 g/dL Low 3.5-5.0 [facility] Comment on above: Performed By: #### C MP3, HEMOG ####[address] [place], [place] Chloride [Moles/Vol] 104 mmol/L Normal 98-107 [facility] Comment on above: Performed By: #### C MP3, HEMOG ####[address] [place], [place] Hemogramon 01-29-2021 Erythrocyte distribution width (RBC) [Ratio] 15.7 % High 11.5-14.5 [facility] Comment on above: Performed By: #### C MP3, HEMOG ####[address] [place], [place] Hematocrit (Bld) [Volume fraction] 28.1 % Low 35.0-47.0 [facility] Comment on above: Performed By: #### C MP3, HEMOG ####[address] [place] Hemoglobin (Bld) [Mass/Vol] 9.1 g/dL Low 11.7-16.0 [facility] Comment on above: Performed By: #### C MP3, HEMOG ####[address] [place] MCH (RBC) [Entitic mass] 29.2 pg Normal 26.0-34.0 [facility] Comment on above: Performed By: #### C MP3, HEMOG ####[address] [place] MCHC 32.2 % Normal 32.0-36.0 [facility] Comment on above: Performed By: #### C MP3, HEMOG ####[address] [place] MCV (RBC) [Entitic vol] 90.9 fL Normal 79.0-98.0 [facility] Comment on above: Performed By: #### C MP3, HEMOG ####[address] [place], [place] Platelet mean volume (Bld) [Entitic vol] 8.6 fL Normal 7.4-10.4 [facility] Comment on above: Performed By: #### C MP3, HEMOG ####[address] [place], [place] Platelets (Bld) [#/Vol] 781 10*3/uL High 140-440 [facility] Comment on above: Performed By: #### C MP3, HEMOG ####[address] [place] RBC (Bld) [#/Vol] 3.10 10*6/uL Low 3.80-5.20 [facility] Comment on above: Performed By: #### C MP3, HEMOG ####[address] [place] WBC (Bld) [#/Vol] 20.4 10*3/uL High 3.6-10.7 [facility] Comment on above: Performed By: #### C MP3, HEMOG ####[address] [place] Erythrocyte distribution width (RBC) [Ratio] 16.0 % High 11.5-14.5 [facility] Comment on above: Performed By: #### B MP3M, HEMOG ####[address] [place] Hematocrit (Bld) [Volume fraction] 34.5 % Low 35.0-47.0 [facility] Comment on above: Performed By: #### B MP3M, HEMOG ####[address] [place] Hemoglobin (Bld) [Mass/Vol] 10.8 g/dL Low 11.7-16.0 [facility] Comment on above: Performed By: #### B MP3M, HEMOG ####[facility] [place], [place] MCH (RBC) [Entitic mass] 28.5 pg Normal 26.0-34.0 [facility] Comment on above: Performed By: #### B MP3M, HEMOG ####[address] [place] MCHC 31.3 % Low 32.0-36.0 [facility] Comment on above: Performed By: #### B MP3M, HEMOG ####[address] [place] MCV (RBC) [Entitic vol] 91.2 fL Normal 79.0-98.0 [facility] Comment on above: Performed By: #### B MP3M, HEMOG ####[address] [place] Platelet mean volume (Bld) [Entitic vol] 8.4 fL Normal 7.4-10.4 [facility] Comment on above: Performed By: #### B NATALEE3Ward, HEMOG ####[address] [place], [place] Platelets (Bld) [#/Vol] 1091 10*3/uL High 140-440 [facility] Comment on above: Performed By: #### B NATALEE3Ward, HEMOG ####[address] [place] RBC (Bld) [#/Vol] 3.79 10*6/uL Low 3.80-5.20 [facility] Comment on above: Performed By: #### Jacek VILLANUEVA HEMOG ####[address] WBC (Bld) [#/Vol] 18.0 10*3/uL High 3.6-10.7 [facility] Comment on above: Performed By: #### Jacek ALBRIGHT3Ward, HEMOG ####[address] [place], [place] Op Noteon 01-29-2021 Op Note Normal [facility] Surgical Pathologyon 021 Surgical Pathology Normal [facility] TS GELon 01-29-2021 TS GEL ABO Group: A Rh, Gel: POS Antibody Screen Gel: NEG Normal [facility] Comment on above: Performed By: #### T SGL ####[facility]#### LRC ####[address] [address] Basic Metabolic Panelon 01-17 Anion gap [Moles/Vol] 11 mmol/L Normal -13 [facility] Comment on above: Performed By: #### B NATALEE3Ward, HEMOG ####[address] [place], [place] Calcium [Mass/Vol] 10.0 mg/dL Normal 8.4-10.4 [facility] Comment on above: Performed By: #### B NATALEE3Ward, HEMOG ####[address] [place], [place] CO2 [Moles/Vol] 28 mmol/L Normal 22-30 [facility] Comment on above: Performed By: #### B MP3M, HEMOG ####[facility] [place], [place] Glucose [Mass/Vol] 82 mg/dL Normal 70-100 [facility] Comment on above: Performed By: #### B MP3M, HEMOG ####[address] [place], [place] Urea nitrogen [Mass/Vol] 13 mg/dL Normal 9-20 [facility] Comment on above: Performed By: #### B MP3M, HEMOG ####[address] [place] Creatinine [Mass/Vol] 0.55 mg/dL Normal 0.52-1.25 [facility] Comment on above: Performed By: #### B MP3M, HEMOG ####[address] [place] eGFR OTHER > 90.0 Normal >60 [facility] Comment on above: Result Comment: KDIG O guidelines provide the following GFR categories:Stage GFR(ml/min/1.73 m2) TermsG1 >=90 Normal or highG2 60-89 Mildly decreased*G3a 45-59 Mildly to moderately hzlzcfccnD4z 30-44 Moderately to severely decreasedG4 15-29 Severely [...] secretion. Performed By: #### B MP3M, HEMOG ####[address] [place] [address] GFR/1.73 sq M.predicted among blacks MDRD (S/P/Bld) [Vol rate/Area] mL/min/{1.73_m2} Normal >60 [facility] Comment on above: Performed By: #### Jacek ALBRIGHT3Ward, HEMOG ####[facility] [employer] [id number] [place], [place] Chloride [Moles/Vol] 97 mmol/L Low 98-107 [facility] Comment on above: Performed By: #### B MP3M, HEMOG ####[address] [place], [place] Potassium [Moles/Vol] 4.9 mmol/L Normal 3.5-5.1 [facility] Comment on above: Result Comment: Slig htly hemolysed, interpret with caution. Performed By: #### B NATALEE3M, HEMOG ####[address] [place], [place] Sodium [Moles/Vol] 137 mmol/L Normal 135-145 [facility] Comment on above: Performed By: #### B MP3M, HEMOG ####[address] [place], [place] CR Chest Portableon 01-29-20 21 CR Chest Portable Normal [facility] CT 3D Reconstructionon 01-28 CT 3D Reconstruction Normal [facility] CT Maxillofacial w/o Contras ton 01-28-2021 CT Maxillofacial w/o Contrast Normal [facility] Hemogramon 01-28-2021 Erythrocyte distribution width (RBC) [Ratio] 16.1 % High 11.5-14.5 [facility] Comment on above: Performed By: #### Jacek MP3M, HEMOG ####[facility] [employer] [id number] [place], [place] Hematocrit (Bld) [Volume fraction] 35.3 % Normal 35.0-47.0 [facility] Comment on above: Performed By: #### Jacek MP3M, HEMOG ####[facility] [employer] [id number] [place], [place] Hemoglobin (Bld) [Mass/Vol] 10.9 g/dL Low 11.7-16.0 [facility] Comment on above: Performed By: #### B NATALEE3Ward, HEMOG ####[address] [place], [place] MCH (RBC) [Entitic mass] 28.0 pg Normal 26.0-34.0 [facility] Comment on above: Performed By: #### B MP3Ward, HEMOG ####[address] MCHC 30.8 % Low 32.0-36.0 [facility] Comment on above: Performed By: #### B NATALEE3Ward, HEMOG ####[address] [place] MCV (RBC) [Entitic vol] 90.9 fL Normal 79.0-98.0 [facility] Comment on above: Performed By: #### Jacek ALBRIGHT3Ward, HEMOG ####[address] Platelet mean volume (Bld) [Entitic vol] 8.8 fL Normal 7.4-10.4 [facility] Comment on above: Performed By: #### Jacek ALBRIGHT3Ward, HEMOG ####[address] [place], [place] Platelets (Bld) [#/Vol] 996 10*3/uL High 140-440 [facility] Comment on above: Performed By: #### B MP3Ward, HEMOG ####[address] RBC (Bld) [#/Vol] 3.89 10*6/uL Normal 3.80-5.20 [facility] Comment on above: Performed By: #### B MP3Ward, HEMOG ####[address] WBC (Bld) [#/Vol] 15.6 10*3/uL High 3.6-10.7 [facility] Comment on above: Performed By: #### B MP3Ward, HEMOG ####[address] [place], [place] APTTon 01-27-2021 aPTT Coag (Bld) [Time] 20.8 s Normal 20.0-30.5 [facility] Comment on above: Result Comment: NOTE : The therapeutic time for Heparin anticoagulation,based on Xa activity inhibition, is an APTT of 46-80seconds. Performed By: #### A PTT ####[address] Basic Metabolic Panelon 01-17 Anion gap [Moles/Vol] 15 mmol/L High 3-13 [facility] Comment on above: Performed By: #### B MP3M ####[address] [place], [place] Calcium [Mass/Vol] 9.3 mg/dL Normal 8.4-10.4 [facility] Comment on above: Performed By: #### B MP3M ####[address] CO2 [Moles/Vol] 28 mmol/L Normal 22-30 [facility] Comment on above: Performed By: #### B MP3M ####[address] [place] Creatinine [Mass/Vol] 0.56 mg/dL Normal 0.52-1.25 [facility] Comment on above: Performed By: #### B MP3M ####[address] eGFR OTHER > 90.0 Normal >60 [facility] Comment on above: Result Comment: KDIG O guidelines provide the following GFR categories:Stage GFR(ml/min/1.73 m2) TermsG1 >=90 Normal or highG2 60-89 Mildly decreased*G3a 45-59 Mildly to moderately bdgdialgwU8x 30-44 Moderately to severely decreasedG4 15-29 Severely [...] creatinine secretion. Performed By: #### B MP3M ####[address] [place], [place] GFR/1.73 sq M.predicted among blacks MDRD (S/P/Bld) [Vol rate/Area] mL/min/{1.73_m2} Normal >60 [facility] Comment on above: Performed By: #### B MP3M ####[address] [place] Glucose [Mass/Vol] 89 mg/dL Normal 70-100 [facility] Comment on above: Performed By: #### B MP3M ####[address] [place] Urea nitrogen [Mass/Vol] 10 mg/dL Normal 9-20 [facility] Comment on above: Performed By: #### B MP3M ####[address] [place] Chloride [Moles/Vol] 95 mmol/L Low 98-107 [facility] Comment on above: Performed By: #### B MP3M ####[address] [place], [place] Potassium [Moles/Vol] 4.6 mmol/L Normal 3.5-5.1 [facility] Comment on above: Result Comment: Slig htly hemolysed, interpret with caution. Performed By: #### B MP3M ####[address] [place] Sodium [Moles/Vol] 138 mmol/L Normal 135-145 [facility] Comment on above: Performed By: #### B MP3M ####[address] [place], [place] CR Forearm 2 Views Lefton CR Forearm 2 Views Left Normal [facility] CR Hand Complete 3+ Views Le fton 01-27-2021 CR Hand Complete 3+ Views Left Normal [facility] CR Knee 3 Views Bilateralon 01-27-2021 CR Knee 3 Views Bilateral Normal [facility] CR Pelvis Complete Minimum 3 Viewson 01-27-2021 CR Pelvis Complete Minimum 3 Views Normal [facility] CR Shoulder 2+ Views Lefton 01-27-2021 CR Shoulder 2+ Views Left Normal [facility] CR Tibia/Fibula 2 Views Righ ton 01-27-2021 CR Tibia/Fibula 2 Views Right Normal [facility] Hemogramon 01-27-2021 Erythrocyte distribution width (RBC) [Ratio] 16.1 % High 11.5-14.5 [facility] Comment on above: Performed By: #### H EMOG ####[address] [place] Hematocrit (Bld) [Volume fraction] 37.0 % Normal 35.0-47.0 [facility] Comment on above: Performed By: #### H EMOG ####[address] [place] Hemoglobin (Bld) [Mass/Vol] 11.6 g/dL Low 11.7-16.0 [facility] Comment on above: Performed By: #### H EMOG ####[address] [place] MCH (RBC) [Entitic mass] 28.2 pg Normal 26.0-34.0 [facility] Comment on above: Performed By: #### H EMOG ####[address] [place] MCHC 31.5 % Low 32.0-36.0 [facility] Comment on above: Performed By: #### H EMOG ####[address] [place] MCV (RBC) [Entitic vol] 89.6 fL Normal 79.0-98.0 [facility] Comment on above: Performed By: #### H EMOG ####[address] [place], [place] Platelet mean volume (Bld) [Entitic vol] 8.7 fL Normal 7.4-10.4 [facility] Comment on above: Performed By: #### H EMOG ####[address] [place], [place] Platelets (Bld) [#/Vol] 1070 10*3/uL High 140-440 [facility] Comment on above: Performed By: #### H EMOG ####[address] [place], [place] RBC (Bld) [#/Vol] 4.13 10*6/uL Normal 3.80-5.20 [facility] Comment on above: Performed By: #### H EMOG ####[address] [place], [place] WBC (Bld) [#/Vol] 18.5 10*3/uL High 3.6-10.7 [facility] Comment on above: Performed By: #### H EMOG ####[address] [place], [place] STAIN GRAMon 01-27-2021 STAIN GRAM STAIN GRAM --> Statu s: F Many polymorphonuclear cells/lpf. Few gram positive cocci in clusters. Few gram positive cocci in clusters. Normal [facility] Comment on above: Performed By: #### S /GRM ####[address] [place], [place] #### CXAAN ####[address] [place] [id number] [place], [place] VL Venous Duplex US Lower Ex t Bilateralon 01-27-2021 VL Venous Duplex US Lower Ext Bilateral Normal [facility] CT Head or Brain w/o Contras ton 01-08-2021 CT Head or Brain w/o Contrast Normal [facility] CULTURE BLOODon 01-03-2021 Microscopic examination of blood, culture CULTURE BLOOD --> Status: F No growth at 5 days. Normal [facility] Comment on above: Performed By: #### C /BLD ####[address] [place], [place] CULT./ST. RESPIRATORYon 12-18 CULT./ST. RESPIRATORY Normal [facility] Comment on above: Performed By: #### S /GRM ####[address] [place], [place] #### CS/RE ####[address] [address] [address] [place], [place] CULTURE BLOOD (Two)on 2020 Microscopic examination of blood, culture CULTURE BLOOD (Two) --> Status: F No growth at 5 days. Normal [facility] Comment on above: Performed By: #### C /BLT ####[address] Basic Metabolic Panelon 12-18 Calcium [Mass/Vol] 7.7 mg/dL Low 8.4-10.4 [facility] Comment on above: Performed By: #### H CURLY BMP3 ####[facility] [place], [place] Anion gap [Moles/Vol] 0 mmol/L Low - [facility] Comment on above: Performed By: #### H CURLY BMP3 ####[address] [place] CO2 [Moles/Vol] 28 mmol/L Normal 22-30 [facility] Comment on above: Performed By: #### H CURLY BMP3 ####[address] [place] Creatinine [Mass/Vol] 0.48 mg/dL Low 0.52-1.25 [facility] Comment on above: Performed By: #### H CURLY BMP3 ####[address] eGFR OTHER > 90.0 Normal >60 [facility] Comment on above: Result Comment: KDIG O guidelines provide the following GFR categories:Stage GFR(ml/min/1.73 m2) TermsG1 >=90 Normal or highG2 60-89 Mildly decreased*G3a 45-59 Mildly to moderately euuqixnteL1g 30-44 Moderately to severely decreasedG4 15-29 Severely [...] secretion. Performed By: #### H ZACH RAWLS3 ####[facility] [employer] [place], [place] GFR/1.73 sq M.predicted among blacks MDRD (S/P/Bld) [Vol rate/Area] mL/min/{1.73_m2} Normal >60 [facility] Comment on above: Performed By: #### H ZACH RAWLS3 ####[facility] [employer] [id number] [place], [place] Glucose [Mass/Vol] 102 mg/dL High 70-100 [facility] Comment on above: Performed By: #### H CURLY BMP3 ####[facility] [employer] [place], [place] Urea nitrogen [Mass/Vol] 16 mg/dL Normal 9-20 [facility] Comment on above: Performed By: #### H CURLY BMP3 ####[employer] [place], [place] Chloride [Moles/Vol] 113 mmol/L High 98-107 [facility] Comment on above: Performed By: #### H ZACH RAWLS3 ####[facility] [employer] [id number] [place], [place] Potassium [Moles/Vol] 3.5 mmol/L Normal 3.5-5.1 [facility] Comment on above: Performed By: #### H ELMER RAWLS ####[facility] [place] Sodium [Moles/Vol] 141 mmol/L Normal 135-145 [facility] Comment on above: Performed By: #### H ZACH RAWLS3 ####[facility] [place], [place] Anion gap [Moles/Vol] 0 mmol/L Low 3 - 13 mmol/L [facility] Calcium [Mass/Vol] 7.7 mg/dL Low 8.4 - 10. 4 mg/dL [facility] Chloride [Moles/Vol] 113 mmol/L High 98 - 10 7 mmol/L [facility] CO2 [Moles/Vol] 28 mmol/L 22 - 30 mmol/L [facility] Creatinine [Mass/Vol] 0.48 mg/dL Low 0.52 - 1.25 mg/dL [facility] EGFR IF NonAfrican [place]ian >90.0 >60 mL/min [facility] GFR/1.73 sq M.predicted among blacks MDRD (S/P/Bld) [Vol rate/Area] mL/min/{1.73_m2} >60 mL/min [facility] Glucose [Mass/Vol] 102 mg/dL High 70 - 100 mg/dL [facility] Interpretation and review of laboratory results Abnormal [facility] Potassium [Moles/Vol] 3.5 mmol/L 3.5 - 5.1 mmol/L [facility] Sodium [Moles/Vol] 141 mmol/L 135 - 145 mmol/L [facility] Urea nitrogen (BldV) [Mass/Vol] 16 mg/dL 9 - 20 mg/dL [facility] CBC WITH AUTO DIFFERENTIALon 12-29-2020 Absolute Baso # 0.2 10*3/uL 0.0 - 0.2 10*3/uL [facility] Absolute Neut # 16.9 10*3/uL High 1.8 - 7.0 10*3/uL [facility] Basophils/100 WBC (Bld) 0.9 % 0.0 - [...] 19.5 10*3/uL High 3.6 - 10.7 10*3/uL [facility] CR Chest Portableon 12-30-19 CR Chest Portable Normal [facility] Hemogram w/ Autodiffon 12-29 Abs Baso Cnt 0.2 10*3/uL Normal 0.0-0.2 [facility] Comment on above: Performed By: #### H CURLY BMP3 ####[address] [address] Abs Neutrophile Cnt 16.9 10*3/uL High 1.8-7.0 [facility] Comment on above: Performed By: #### H CURLY BMP3 ####[address] [address] Basophils/100 WBC (Bld) 0.9 % Normal 0.0-2.0 [facility] Comment on above: Performed By: #### H CURLY BMP3 ####[address] [address] Eosinophils (Bld) [#/Vol] 0.2 10*3/uL Normal 0.0-0.5 [facility] Comment on above: Performed By: #### H CURLY BMP3 ####[address] [address] Eosinophils/100 WBC (Bld) 1.0 % Normal 1.0-6.0 [facility] Comment on above: Performed By: #### H CURLY BMP3 ####[address] [address] Granulocytes/100 WBC (Bld) 84.6 % High 40.0-80.0 [facility] Comment on above: Performed By: #### H CURLY BMP3 ####[address] [id number] Lymphocytes (Bld) [#/Vol] 2.0 10*3/uL Normal 1.0-4.3 [facility] Comment on above: Performed By: #### H CURLY, BMP3 ####[address] [address] Lymphocytes/100 WBC (Bld) 9.8 % Low 20.0-40.0 [facility] Comment on above: Performed By: #### H CURLY, BMP3 ####[id number] [place], [place] Monocytes (Bld) [#/Vol] 0.7 10*3/uL Normal 0.0-0.8 [facility] Comment on above: Performed By: #### H EMDF, BMP3 ####[address] [place], [place] Monocytes/100 WBC (Bld) 3.7 % Normal 2.0-10.0 [facility] Comment on above: Performed By: #### H EMDF BMP3 ####[address] Erythrocyte distribution width (RBC) [Ratio] 16.0 % High 11.5-14.5 [facility] Comment on above: Performed By: #### H EMDF BMP3 ####[address] Hematocrit (Bld) [Volume fraction] 25.4 % Low 35.0-47.0 [facility] Comment on above: Performed By: #### H CURLY BMP3 ####[address] Hemoglobin (Bld) [Mass/Vol] 8.1 g/dL Low 11.7-16.0 [facility] Comment on above: Performed By: #### H EMDF, BMP3 ####[address] MCH (RBC) [Entitic mass] 29.9 pg Normal 26.0-34.0 [facility] Comment on above: Performed By: #### H EMDF, BMP3 ####[address] MCHC 31.9 % Low 32.0-36.0 [facility] Comment on above: Performed By: #### H EMDF, BMP3 ####[address] MCV (RBC) [Entitic vol] 93.5 fL Normal 79.0-98.0 [facility] Comment on above: Performed By: #### H EMDF BMP3 ####[address] [place], [place] Platelet mean volume (Bld) [Entitic vol] 9.0 fL Normal 7.4-10.4 [facility] Comment on above: Performed By: #### H EMDMiguel Ángel BMP3 ####[address] [place], [place] Platelets (Bld) [#/Vol] 642 10*3/uL High 140-440 [facility] Comment on above: Performed By: #### H CURLY BMP3 ####[address] [place], [place] RBC (Bld) [#/Vol] 2.72 10*6/uL Low 3.80-5.20 [facility] Comment on above: Performed By: #### H CURLY BMP3 ####[address] [place], [place] WBC (Bld) [#/Vol] 19.5 10*3/uL High 3.6-10.7 [facility] Comment on above: Performed By: #### H CURLY BMP3 ####[address] [place], [place] XR CHEST PORTABLEon 12-30-19 [facility] Work Phone: [phone] [facility] Work Phone: Radiology Study observation (narrative) [facility] Work Phone: [phone] Basic Metabolic Panelon 12-18 Calcium [Mass/Vol] 8.0 mg/dL Low 8.4-10.4 [facility] Comment on above: Performed By: #### M G3, BMP3, PHOS3, PCAL ####[address] [place], [place] Anion gap [Moles/Vol] 7 mmol/L Normal 3-13 [facility] Comment on above: Performed By: #### M G3, BMP3, PHOS3, PCAL ####[facility] [employer] [id number] [place] CO2 [Moles/Vol] 22 mmol/L Normal 22-30 [facility] Comment on above: Performed By: #### M G3, BMP3, PHOS3, PCAL ####[facility] [place], [place] Creatinine [Mass/Vol] 0.65 mg/dL Normal 0.52-1.25 [facility] Comment on above: Performed By: #### M G3, BMP3, PHOS3, PCAL ####[address] [place], [place] eGFR OTHER > 90.0 Normal >60 [facility] Comment on above: Result Comment: KDIG O guidelines provide the following GFR categories:Stage GFR(ml/min/1.73 m2) TermsG1 >=90 Normal or highG2 60-89 Mildly decreased*G3a 45-59 Mildly to moderately bdgrocpxxM7b 30-44 Moderately to severely decreasedG4 15-29 Severely [...] By: #### M G3, BMP3, PHOS3, PCAL ####[facility] [employer] [id number] [place], [place] GFR/1.73 sq M.predicted among blacks MDRD (S/P/Bld) [Vol rate/Area] mL/min/{1.73_m2} Normal >60 [facility] Comment on above: Performed By: #### M G3, BMP3, PHOS3, PCAL ####[facility] [employer] [id number] [place] [address] Glucose [Mass/Vol] 135 mg/dL High 70-100 [facility] Comment on above: Performed By: #### M G3, BMP3, PHOS3, PCAL ####[address] [place] [address] Urea nitrogen [Mass/Vol] 18 mg/dL Normal 9-20 [facility] Comment on above: Performed By: #### M G3, BMP3, PHOS3, PCAL ####[address] [place] [address] Chloride [Moles/Vol] 112 mmol/L High 98-107 [facility] Comment on above: Performed By: #### M G3, BMP3, PHOS3, PCAL ####[address] [place], [place] Potassium [Moles/Vol] 3.2 mmol/L Low 3.5-5.1 [facility] Comment on above: Performed By: #### Ward G3, BMP3, PHOS3, PCAL ####[address] [place], [place] Sodium [Moles/Vol] 140 mmol/L Normal 135-145 [facility] Comment on above: Performed By: #### M G3, BMP3, PHOS3, PCAL ####[address] [place], [place] Anion gap [Moles/Vol] 7 mmol/L 3 - 13 mmol/L [facility] Calcium [Mass/Vol] 8.0 mg/dL Low 8.4 - 10. 4 mg/dL [facility] Chloride [Moles/Vol] 112 mmol/L High 98 - 10 7 mmol/L [facility] CO2 [Moles/Vol] 22 mmol/L 22 - 30 mmol/L [facility] Creatinine [Mass/Vol] 0.65 mg/dL 0.52 - 1.25 mg/dL [facility] EGFR IF NonAfrican Bermudian >90.0 >60 mL/min [facility] GFR/1.73 sq M.predicted [...] 15.6 % High 11.5 - 14.5 % [facility] Platelet mean volume (Bld) [Entitic vol] 9.3 fL 7.4 - 10.4 fL [facility] Platelets (Bld) [#/Vol] 646 10*3/uL High 140 - 440 10*3/uL [facility] RBC (Bld) [#/Vol] 2.89 10*6/uL Low 3.80 - 5.2 0 10*6/uL [facility] WBC (Bld) [#/Vol] 21.7 10*3/uL High 3.6 - 10.7 10*3/uL [facility] CR Chest Portableon 12-29-19 21 CR Chest Portable Normal [facility] CT Abdomen and Pelvis W cont rast Fritz 12-28-2020 [facility] Work Phone: CT Abdomen and Pelvis W cont rast IVOrdered By: Kraig Middleton on 12-28-2020 [facility] Work Phone: CT Abdomen/Pelvis w/ Contras ton 12-28-2020 CT Abdomen/Pelvis w/ Contrast Normal [facility] Gram Stainon 12-28-2020 Gram Stain Result [facility] Hemogram w/ Autodiffon 12-28 Abs Baso Cnt 0.1 10*3/uL Normal 0.0-0.[address] [facility] Comment on above: Performed By: #### H EMDF ####[address] [place], [place] Abs Neutrophile Cnt 19.1 10*3/uL High 1.8-7.0 [facility] Comment on above: Performed By: #### H EMDF ####[address] [place], [place] Basophils/100 WBC (Bld) 0.3 % Normal 0.0-2.0 [facility] Comment on above: Performed By: #### H EMDF ####[address] [place], [place] Eosinophils (Bld) [#/Vol] 0.1 10*3/uL Normal 0.0-0.5 [facility] Comment on above: Performed By: #### H EMDF ####[address] Eosinophils/100 WBC (Bld) 0.4 % Low 1.0-6.0 [facility] Comment on above: Performed By: #### H EMDF ####[address] Erythrocyte distribution width (RBC) [Ratio] 15.6 % High 11.5-14.5 [facility] Comment on above: Performed By: #### H EMDF ####[address] Granulocytes/100 WBC (Bld) 87.8 % High 40.0-80.0 [facility] Comment on above: Performed By: #### H EMDF ####[address] Hematocrit (Bld) [Volume fraction] 27.1 % Low 35.0-47.0 [facility] Comment on above: Performed By: #### H EMDF ####[address] Hemoglobin (Bld) [Mass/Vol] 8.5 g/dL Low 11.7-16.0 [facility] Comment on above: Performed By: #### H EMDF ####[address] Lymphocytes (Bld) [#/Vol] 1.8 10*3/uL Normal 1.0-4.3 [facility] Comment on above: Performed By: #### H EMDF ####[address] Lymphocytes/100 WBC (Bld) 8.4 % Low 20.0-40.0 [facility] Comment on above: Performed By: #### H EMDF ####[address] MCH (RBC) [Entitic mass] 29.5 pg Normal 26.0-34.0 [facility] Comment on above: Performed By: #### H EMDF ####[address] MCHC 31.4 % Low 32.0-36.0 [facility] Comment on above: Performed By: #### H EMDF ####[address] MCV (RBC) [Entitic vol] 93.8 fL Normal 79.0-98.0 [facility] Comment on above: Performed By: #### H EMDF ####[address] Monocytes (Bld) [#/Vol] 0.7 10*3/uL Normal 0.0-0.8 [facility] Comment on above: Performed By: #### H EMDF ####[address] Monocytes/100 WBC (Bld) 3.1 % Normal 2.0-10.0 [facility] Comment on above: Performed By: #### H EMDF ####[address] Platelet mean volume (Bld) [Entitic vol] 9.3 fL Normal 7.4-10.4 [facility] Comment on above: Performed By: #### H EMDF ####[address] Platelets (Bld) [#/Vol] 646 10*3/uL High 140-440 [facility] Comment on above: Performed By: #### H EMDF ####[address] RBC (Bld) [#/Vol] 2.89 10*6/uL Low 3.80-5.20 [facility] Comment on above: Performed By: #### H EMDF ####[address] [address] WBC (Bld) [#/Vol] 21.7 10*3/uL High 3.6-10.7 [facility] Comment on above: Performed By: #### H EMDF ####[address] [place] [address] Magnesiumon 12-28-2020 Magnesium [Mass/Vol] 2.1 mg/dL Normal 1.6-2.3 [facility] Comment on above: Performed By: #### M G3, BMP3, PHOS3, PCAL ####[address] [place], [place] Magnesium [Mass/Vol] 2.1 mg/dL 1.6 - 2 .3 mg/dL [facility] No Panel Informationon 12-28 Radiology Study observation (narrative) [facility] Work Phone: Interpretation and review of laboratory results Abnormal [facility] Op Noteon 12-28-2020 Op Note Normal [facility] Phosphoruson 12-28-2020 Phosphate [Mass/Vol] 2.4 mg/dL Low 2.5-4.5 [facility] Comment on above: Performed By: #### M G3, BMP3, PHOS3, PCAL ####[address] [place], [place] Phosphate [Mass/Vol] 2.4 mg/dL Low 2.5 - 4 .5 mg/dL [facility] Procalcitoninon 12-28-2020 Procalcitonin 0.12 ng/mL High 0.00-0.[address] [facility] Comment on above: Performed By: #### M G3, BMP3, PHOS3, PCAL ####[address] [place], [place] Interpretation See Below [facility] Interpretation and review of laboratory results Abnormal [facility] Procalcitonin 0.12 ng/mL High 0.00 - 0.09 ng/mL [facility] STAIN GRAMon 12-28-2020 STAIN GRAM STAIN GRAM --> Statu s: F Many polymorphonuclear cells/lpf. No organisms seen. No organisms seen. Normal [facility] Comment on above: Performed By: #### S /GRM ####[facility] [address] [place], [place] #### CS/RE ####[facility] [place] [address] [address] [place] [id number] VL LOWER EXTREMITY BILATERAL VENOUS DUPLEXon 12-28-2020 [facility] Work Phone: [facility] Work Phone: VL Venous Duplex US Lower Ex t Bilateralon 12-28-2020 VL Venous Duplex US Lower Ext Bilateral Normal [facility] XR CHEST PORTABLEon 12-29-19 21 [facility] Work Phone: XR CHEST PORTABLEOrdered By: Clau Mares on 12-28-2020 [facility] Work Phone: Basic Metabolic Panelon 12-18 Calcium [Mass/Vol] 8.2 mg/dL Low 8.4-10.4 [facility] Comment on above: Performed By: #### M DIFF, PHOS3, HEMDF, BMP3 ####[address] [place], [place] Anion gap [Moles/Vol] 4 mmol/L Normal 3-13 [facility] Comment on above: Performed By: #### M DIFF, PHOS3, HEMDF, BMP3 ####[address] [place], [place] CO2 [Moles/Vol] 25 mmol/L Normal -30 [facility] Comment on above: Performed By: #### M DIFF, PHOS3, HEMDF, BMP3 ####[facility] [place], [place] Creatinine [Mass/Vol] 0.55 mg/dL Normal 0.52-1.25 [facility] Comment on above: Performed By: #### M DIFF, PHOS3, HEMDF, BMP3 ####[address] [place], [place] eGFR OTHER > 90.0 Normal >60 [facility] Comment on above: Result Comment: KDIG O guidelines provide the following GFR categories:Stage GFR(ml/min/1.73 m2) TermsG1 >=90 Normal or highG2 60-89 Mildly decreased*G3a 45-59 Mildly to moderately cmwqfwlfqA2r 30-44 Moderately to severely decreasedG4 15-29 Severely [...] By: #### M DIFF, PHOS3, HEMDF, BMP3 ####[facility] [employer] [place] [address] GFR/1.73 sq M.predicted among blacks MDRD (S/P/Bld) [Vol rate/Area] mL/min/{1.73_m2} Normal >60 [facility] Comment on above: Performed By: #### M DIFF, PHOS3, HEMDF, BMP3 ####[employer] [place] [address] Glucose [Mass/Vol] 104 mg/dL High 70-100 [facility] Comment on above: Performed By: #### M DIFF, PHOS3, HEMDF, BMP3 ####[employer] [place] [address] Urea nitrogen [Mass/Vol] 16 mg/dL Normal 9-20 [facility] Comment on above: Performed By: #### M DIFF, PHOS3, HEMDF, BMP3 ####[employer] [place] [address] Chloride [Moles/Vol] 114 mmol/L High 98-107 [facility] Comment on above: Performed By: #### M DIFF, PHOS3, HEMDF, BMP3 ####[facility] [place] [address] Potassium [Moles/Vol] 3.3 mmol/L Low 3.5-5.1 [facility] Comment on above: Performed By: #### M DIFF, PHOS3, HEMDF, BMP3 ####[facility] [place] [address] Sodium [Moles/Vol] 143 mmol/L Normal 135-145 [facility] Comment on above: Performed By: #### M DIFF, PHOS3, HEMDF, BMP3 ####[facility] [place] [address] Anion gap [Moles/Vol] 4 mmol/L 3 - 13 mmol/L [facility] Calcium [Mass/Vol] 8.2 mg/dL Low 8.4 - 10. 4 mg/dL [facility] Chloride [Moles/Vol] 114 mmol/L High 98 - 10 7 mmol/L [facility] CO2 [Moles/Vol] 25 mmol/L 22 - 30 mmol/L [facility] Creatinine [Mass/Vol] 0.55 mg/dL 0.52 - 1.25 mg/dL [facility] EGFR IF NonAfrican Bermudian >90.0 >60 mL/min [facility] GFR/1.73 sq M.predicted among blacks MDRD (S/P/Bld) [Vol rate/Area] mL/min/{1.73_m2} >60 mL/min [facility] Glucose [Mass/Vol] 104 mg/dL High 70 - 100 mg/dL [facility] Interpretation and review of laboratory results Abnormal [...] 8.4 g/dL Low 11.7 - 16.0 g/dL [facility] Interpretation and review of laboratory results Abnormal [...] 19.2 10*3/uL High 3.6 - 10.7 10*3/uL [facility] CR Chest Portableon 12-28-19 21 CR Chest Portable Normal [facility] CULT./ST. RESPIRATORYon 12-18 CULT./ST. RESPIRATORY Normal [facility] Comment on above: Performed By: #### C S/RE ####[address] [address] [id number]#### S/GRM ####[address] [address] Culture, Bloodon 12-27-2020 Blood Culture, Routine Staphylococcus epidermidis Abnormal [facility] Interpretation and review of laboratory results Abnormal [facility] Culture, Respiratoryon 12-27 Interpretation and review of laboratory results Abnormal [facility] Respiratory Culture Klebsiella oxytoca Abnormal [facility] Respiratory Culture Many [facility] Hemogram w/ Autodiffon 12-27 Erythrocyte distribution width (RBC) [Ratio] 15.1 % High 11.5-14.5 [facility] Comment on above: Performed By: #### M DIFF, PHOS3, HEMDF, BMP3 ####[address] [place], [place] Hematocrit (Bld) [Volume fraction] 26.0 % Low 35.0-47.0 [facility] Comment on above: Performed By: #### M DIFF, PHOS3, HEMDF, BMP3 ####[address] [place], [place] Hemoglobin (Bld) [Mass/Vol] 8.4 g/dL Low 11.7-16.0 [facility] Comment on above: Performed By: #### M DIFF, PHOS3, HEMDF, BMP3 ####[address] [place], [place] MCH (RBC) [Entitic mass] 29.9 pg Normal 26.0-34.0 [facility] Comment on above: Performed By: #### M DIFF, PHOS3, HEMDF, BMP3 ####[address] [place] MCHC 32.2 % Normal 32.0-36.0 [facility] Comment on above: Performed By: #### M DIFF, PHOS3, HEMDF, BMP3 ####[address] [place], [place] MCV (RBC) [Entitic vol] 92.9 fL Normal 79.0-98.0 [facility] Comment on above: Performed By: #### M DIFF, PHOS3, HEMDF, BMP3 ####[address] [place], [place] Platelet mean volume (Bld) [Entitic vol] 9.3 fL Normal 7.4-10.4 [facility] Comment on above: Performed By: #### M DIFF, PHOS3, HEMDF, BMP3 ####[address] [place], [place] Platelets (Bld) [#/Vol] 543 10*3/uL High 140-440 [facility] Comment on above: Performed By: #### M DIFF, PHOS3, HEMDF, BMP3 ####[address] RBC (Bld) [#/Vol] 2.80 10*6/uL Low 3.80-5.20 [facility] Comment on above: Performed By: #### M DIFF, PHOS3, HEMDF, BMP3 ####[address] WBC (Bld) [#/Vol] 19.2 10*3/uL High 3.6-10.7 [facility] Comment on above: Performed By: #### M DIFF, PHOS3, HEMDF, BMP3 ####[address] Manual Diffon 12-27-2020 Abs Baso Cnt 0.0 10*3/uL Normal 0.0-0.[address] [facility] Comment on above: Performed By: #### M DIFF, PHOS3, HEMDF, BMP3 ####[address] Abs Eosin Cnt 0.0 10*3/uL Normal 0.0-0.5 [facility] Comment on above: Performed By: #### M DIFF, PHOS3, HEMDF, BMP3 ####[address] Abs Lymph Cnt 1.7 10*3/uL Normal 1.1-4.5 [facility] Comment on above: Performed By: #### M DIFF, PHOS3, HEMDF, BMP3 ####[address] Abs Monocyte Cnt 0.4 10*3/uL Normal 0.2-1.1 [facility] Comment on above: Performed By: #### M DIFF, PHOS3, HEMDF, BMP3 ####[address] Abs Neutrophile Cnt 17.1 10*3/uL High 2.2-8.2 [facility] Comment on above: Performed By: #### M DIFF, PHOS3, HEMDF, BMP3 ####[address] [place] Anisocytosis Slight Normal [facility] Comment on above: Performed By: #### M DIFF, PHOS3, HEMDF, BMP3 ####[address] [place], [place] Bands 2 % Normal 0-3 [facility] Comment on above: Performed By: #### M DIFF, PHOS3, HEMDF, BMP3 ####[address] [place], [place] Basophils 0 % Normal 0-2 [facility] Comment on above: Performed By: #### M DIFF, PHOS3, HEMDF, BMP3 ####[address] Cells counted [address] [facility] Comment on above: Performed By: #### M DIFF, PHOS3, HEMDF, BMP3 ####[address] [place] Eosinophils 0 % Low 1-6 [facility] Comment on above: Performed By: #### M DIFF, PHOS3, HEMDF, BMP3 ####[address] Lymphocytes 9 % Low 20-40 [facility] Comment on above: Performed By: #### M DIFF, PHOS3, HEMDF, BMP3 ####[address] [place] Macrocytosis Slight Normal [facility] Comment on above: Performed By: #### M DIFF, PHOS3, HEMDF, BMP3 ####[facility] [address] [place], [place] Microcytosis Slight Normal [facility] Comment on above: Performed By: #### M DIFF, PHOS3, HEMDF, BMP3 ####[address] [place], [place] Monocytes 2 % Normal 2-10 [facility] Comment on above: Performed By: #### M DIFF, PHOS3, HEMDF, BMP3 ####[address] [place], [place] NRBC 1 /100{WBCs} High -1-0 [facility] Comment on above: Result Comment: Newb orn (<60 days) 1-10Adult <1 Performed By: #### M DIFF, PHOS3, HEMDF, BMP3 ####[address] Ovalocytes Slight Normal [facility] Comment on above: Performed By: #### M DIFF, PHOS3, HEMDF, BMP3 ####[facility] [employer] [address] Poikilocytosis Slight Normal [facility] Comment on above: Performed By: #### M DIFF, PHOS3, HEMDF, BMP3 ####[address] Polychromasia Slight Normal [facility] Comment on above: Performed By: #### M DIFF, PHOS3, HEMDF, BMP3 ####[facility] [employer] [address] RBC Morphology ABNORMAL Normal [facility] Comment on above: Performed By: #### M DIFF, PHOS3, HEMDF, BMP3 ####[facility] [employer] [address] Seg Neutrophils 87 % High 40-80 [facility] Comment on above: Performed By: #### M DIFF, PHOS3, HEMDF, BMP3 ####[facility] [employer] [address] Toxic Granulation Slight Normal [facility] Comment on above: Performed By: #### M DIFF, PHOS3, HEMDF, BMP3 ####[facility] [employer] [address] Manual Differentialon 2020 Absolute Baso # 0.0 10*3/uL 0.0 - 0.2 10*3/uL [facility] Absolute Eos # 0.0 10*3/uL 0.0 - 0.5 10*3/uL [facility] Absolute Lymph # 1.7 10*3/uL 1.1 - 4.5 10*3/uL [facility] Absolute Rains # 0.4 10*3/uL 0.2 - 1.1 10*3/uL [...] CELLS COUNTED 100 [facility] Toxic Granulation Slight [facility] No Panel Informationon 12-27 Blood Culture, Routine [facility] Respiratory Culture Escherichia coli Abnormal [facility] Respiratory Culture [facility] Phosphoruson 12-27-2020 Phosphate [Mass/Vol] 3.1 mg/dL Normal 2.5-4.5 [facility] Comment on above: Performed By: #### M DIFF, PHOS3, HEMDF, BMP3 ####[address] [place] [address] Phosphate [Mass/Vol] 3.1 mg/dL 2.5 - 4 .5 mg/dL [facility] Procalcitoninon 12-27-2020 Procalcitonin 0.11 ng/mL High 0.00-0.09 [facility] Comment on above: Performed By: #### P MICHELLE ####[address] [place] [address] Interpretation See Below Normal [facility] Work Phone: Comment on above: Result Comment: PCT <0.50 = Low risk of severe sepsis and/or septic shock.PCT >2.00 = High risk of severe sepsis and/or septic shock. Performed By: #### M G3, BMP3, PHOS3, PCAL ####[facility] [employer] [id number] [place], [place] Interpretation and review of laboratory results Abnormal [facility] Work Phone: Procalcitonin 0.11 ng/mL High 0.00 - 0.09 ng/mL [facility] Work Phone: [facility] Work Phone: XR CHEST PORTABLEon 12-28-[address] [facility] RAD [facility] Work Phone: [phone] Radiology Study observation (narrative) [facility] Work Phone: XR CHEST PORTABLEOrdered By: Cruz Collins on 12-27-2020 [facility] Work Phone: Basic Metabolic Panelon 11 Anion gap [Moles/Vol] 3 mmol/L Normal 3-13 [facility] Comment on above: Performed By: #### H EMDF, BMP3, MDIFF, PHOS3 ####[facility] [employer] [id number] [place], [place] Calcium [Mass/Vol] 8.0 mg/dL Low 8.4-10.4 [facility] Comment on above: Performed By: #### H EMDF, BMP3, MDIFF, PHOS3 ####[facility] [employer] [id number] [place], [place] CO2 [Moles/Vol] 26 mmol/L Normal 22-30 [facility] Comment on above: Performed By: #### H EMDF, BMP3, MDIFF, PHOS3 ####[facility] [employer] [id number] [place], [place] Glucose [Mass/Vol] 103 mg/dL High 70-100 [facility] Comment on above: Performed By: #### H EMDF, BMP3, MDIFF, PHOS3 ####[facility] [employer] [id number] [place], [place] Urea nitrogen [Mass/Vol] 18 mg/dL Normal 9-20 [facility] Comment on above: Performed By: #### H ELMER RAWLS MDIFF, PHOS3 ####[facility] [employer] [place], [place] Creatinine [Mass/Vol] 0.64 mg/dL Normal 0.52-1.25 [facility] Comment on above: Performed By: #### H ELMER RAWLS MDIFF, PHOS3 ####[facility] [employer] [id number] [place], [place] eGFR OTHER > 90.0 Normal >60 [facility] Comment on above: Result Comment: KDIG O guidelines provide the following GFR categories:Stage GFR(ml/min/1.73 m2) TermsG1 >=90 Normal or highG2 60-89 Mildly decreased*G3a 45-59 Mildly to moderately [id number] 30-44 Moderately to severely decreasedG4 15-29 Severely [...] By: #### H ELMER RAWLS MDIFF, PHOS3 ####[facility] [employer] [id number] [place], [place] GFR/1.73 sq M.predicted among blacks MDRD (S/P/Bld) [Vol rate/Area] mL/min/{1.73_m2} Normal >60 [facility] Comment on above: Performed By: #### H ELMER RAWLS MDIFF PHOS3 ####[facility] [employer] [id number] [place], [place] Potassium [Moles/Vol] 3.9 mmol/L Normal 3.5-5.1 [facility] Comment on above: Performed By: #### H ELMER RAWLS MDIFF PHOS3 ####[facility] [id number] [place] [address] Sodium [Moles/Vol] 144 mmol/L Normal 135-145 [facility] Comment on above: Performed By: #### H ELMER RAWLS MDIFF, PHOS3 ####[facility] [id number] [place] [address] Chloride [Moles/Vol] 115 mmol/L High 98-107 [facility] Comment on above: Performed By: #### H ELMER RAWLS MDIFF, PHOS3 ####[id number] [place] [address] Anion gap [Moles/Vol] 3 mmol/L 3 - 13 mmol/L [facility] Calcium [Mass/Vol] 8.0 mg/dL Low 8.4 - 10. 4 mg/dL [facility] Chloride [Moles/Vol] 115 mmol/L High 98 - 10 7 mmol/L [facility] CO2 [Moles/Vol] 26 mmol/L 22 - 30 mmol/L [facility] Creatinine [Mass/Vol] 0.64 mg/dL 0.52 - 1.25 mg/dL [facility] EGFR IF NonAfrican Bermudian >90.0 >60 mL/min [facility] GFR/1.73 sq M.predicted [...] [Mass/Vol] 32.1 % 32.0 - 36.0 % [facility] Platelet distribution width (Bld) [Ratio] 14.8 % High 11.5 - 14.5 % [facility] CR Abdomen APon 12-26-2020 CR Abdomen AP Normal [facility] CR Chest Portableon 12-27-19 CR Chest Portable Normal [facility] Hemogram w/ Autodiffon 12-26 Hematocrit (Bld) [Volume fraction] 27.0 % Low 35.0-47.0 [facility] Comment on above: Performed By: #### H EMDZACH Del Rosario3LUIS ALFREDO, PHOS3 ####[address] MCH (RBC) [Entitic mass] 29.8 pg Normal 26.0-34.0 [facility] Comment on above: Performed By: #### H EMDELMER Del Rosario MDIFF, PHOS3 ####[address] MCV (RBC) [Entitic vol] 92.9 fL Normal 79.0-98.0 [facility] Comment on above: Performed By: #### H EMDELMER Del Rosario MDIFF, PHOS3 ####[address] Platelet mean volume (Bld) [Entitic vol] 9.0 fL Normal 7.4-10.4 [facility] Comment on above: Performed By: #### H EMDFZACH3LUIS ALFREDO, PHOS3 ####[address] Platelets (Bld) [#/Vol] 464 10*3/uL High 140-440 [facility] Comment on above: Performed By: #### H EMDZACH Del Rosario3LUIS ALFREDO, PHOS3 ####[address] RBC (Bld) [#/Vol] 2.91 10*6/uL Low 3.80-5.20 [facility] Comment on above: Performed By: #### H EMDF BMP3 MDIFF, PHOS3 ####[address] WBC (Bld) [#/Vol] 17.9 10*3/uL High 3.6-10.7 [facility] Comment on above: Performed By: #### H ELMER RAWLS MDIFF, PHOS3 ####[address] Erythrocyte distribution width (RBC) [Ratio] 14.8 % High 11.5-14.5 [facility] Comment on above: Performed By: #### H ELMER RAWLS MDIFF, PHOS3 ####[address] Hemoglobin (Bld) [Mass/Vol] 8.7 g/dL Low 11.7-16.0 [facility] Comment on above: Performed By: #### H ELMER RAWLS MDIFF, PHOS3 ####[address] MCHC 32.1 % Normal 32.0-36.0 [facility] Comment on above: Performed By: #### H ELMER RAWLS MDIFF, PHOS3 ####[address] Manual Diffon 12-26-2020 Abs Lymph Cnt 1.6 10*3/uL Normal 1.1-4.5 [facility] Comment on above: Performed By: #### H ELMER RAWLS MDIFF, PHOS3 ####[address] Abs Monocyte Cnt 0.7 10*3/uL Normal 0.2-1.1 [facility] Comment on above: Performed By: #### H ELMER RAWLS MDIFF, PHOS3 ####[address] Abs Neutrophile Cnt 15.2 10*3/uL High 2.2-8.2 [facility] Comment on above: Performed By: #### H ELMER RAWLS MDIFF, PHOS3 ####[facility] [id number] [place], [place] Anisocytosis Slight Normal [facility] Comment on above: Performed By: #### H EMDF BMP3, MDIFF, PHOS3 ####[address] [place], [place] Lymphocytes 9 % Low 20-40 [facility] Comment on above: Performed By: #### H EMDF, BMP3, MDIFF, PHOS3 ####[address] [place], [place] Macrocytosis Slight Normal [facility] Comment on above: Performed By: #### H EMDF BMP3, MDIFF, PHOS3 ####[address] [place], [place] Metamyelocytes 2 % Abnormal <1 [facility] Comment on above: Performed By: #### H EMDF, BMP3, MDIFF, PHOS3 ####[address] [place], [place] Microcytosis Slight Normal [facility] Comment on above: Performed By: #### H EMDF, BMP3, MDIFF, PHOS3 ####[address] [place], [place] Monocytes 4 % Normal 2-10 [facility] Comment on above: Performed By: #### H EMDF, BMP3, MDIFF, PHOS3 ####[address] [place], [place] NRBC 7 /100{WBCs} High -1-0 [facility] Comment on above: Result Comment: Newb orn (<60 days) 1-10Adult <1 Performed By: #### H EMDF, BMP3, MDIFF, PHOS3 ####[address] [place], [place] Ovalocytes Slight Normal [facility] Comment on above: Performed By: #### H EMDF, BMP3, MDIFF, PHOS3 ####[address] [place], [place] Poikilocytosis Slight Normal [facility] Comment on above: Performed By: #### H EMDF, BMP3, MDIFF, PHOS3 ####[address] [place], [place] Polychromasia Slight Normal [facility] Comment on above: Performed By: #### H EMDF, BMP3, MDIFF, PHOS3 ####[address] [place], [place] RBC Morphology ABNORMAL Normal [facility] Comment on above: Performed By: #### H EMDF, BMP3, MDIFF, PHOS3 ####[address] Seg Neutrophils 85 % High 40-80 [facility] Comment on above: Performed By: #### H EMDF, BMP3, MDIFF, PHOS3 ####[address] Abs Baso Cnt 0.0 10*3/uL Normal 0.0-0.2 [facility] Comment on above: Performed By: #### H EMDF, BMP3, MDIFF, PHOS3 ####[address] Abs Eosin Cnt 0.0 10*3/uL Normal 0.0-0.5 [facility] Comment on above: Performed By: #### H EMDF, BMP3, MDIFF, PHOS3 ####[address] Bands 0 % Normal 0-3 [facility] Comment on above: Performed By: #### H EMDF, BMP3, MDIFF, PHOS3 ####[address] Basophils 0 % Normal 0-2 [facility] Comment on above: Performed By: #### H EMDF, BMP3, MDIFF, PHOS3 ####[address] Cells counted 100 Normal [facility] Comment on above: Performed By: #### H ELMER RAWLS MDIFF, PHOS3 ####[facility] [employer] [id number] [place] [address] Eosinophils 0 % Low 1-6 [facility] Comment on above: Performed By: #### H ELMER RAWLS MDIFF, PHOS3 ####[facility] [employer] [facility] [id number] [place] [address] Manual Differentialon 2020 Absolute Baso # 0.0 10*3/uL 0.0 - 0.2 10*3/uL [facility] Absolute Eos # 0.0 10*3/uL 0.0 - 0.5 10*3/uL [facility] Absolute Lymph # 1.6 10*3/uL 1.1 - 4.5 10*3/uL [facility] Absolute Rains # 0.7 10*3/uL 0.2 - 1.1 10*3/uL [...] 80 % [facility] TOTAL CELLS COUNTED 100 [facility] No Panel Informationon 12-26 Radiology Study observation (narrative) [facility] Work Phone: [facility] OPERATIVE REPORTon [facility] Phosphoruson 12-26-2020 Phosphate [Mass/Vol] 3.1 mg/dL Normal 2.5-4.5 [facility] Comment on above: Performed By: #### H EMDF, BMP3, MDIFF, PHOS3 ####[address] [place], [place] Phosphate [Mass/Vol] 3.1 mg/dL 2.5 - 4 .5 mg/dL [facility] Procalcitoninon 12-26-2020 Procalcitonin 0.09 ng/mL Normal 0.00-0.[address] [facility] Comment on above: Performed By: #### P MICHELLE ####[address] [place], [place] Interpretation See Below [facility] Procalcitonin 0.09 ng/mL 0.00 - 0.09 ng/mL [facility] Interpretation See Below Normal [facility] Comment on above: Result Comment: PCT <0.50 = Low risk of severe sepsis and/or septic shock.PCT >2.00 = High risk of severe sepsis and/or septic shock. Performed By: #### P MICHELLE ####[facility] [employer] [id number] [place], [place] Interpretation See Below Normal [facility] Comment on above: Result Comment: PCT <0.50 = Low risk of severe sepsis and/or septic shock.PCT >2.00 = High risk of severe sepsis and/or septic shock. Performed By: #### P MICHELLE ####[address] XR ABDOMEN (KUB) (SINGLE AP VIEW)on 12-26-2020 [facility] [employer] Work Phone: XR ABDOMEN (KUB) (SINGLE AP VIEW)Ordered By: Theron Cooley on 12-26-2020 [facility] Work Phone: XR CHEST PORTABLEon 12-27-19 21 [facility] Work Phone: XR CHEST PORTABLEOrdered By: Marvel Wilder on 12-26-2020 [facility] Work Phone: Arterial Blood Gaseson 11-08 -2021 CO2 [Moles/Vol] 28.1 mmol/L High 23.0-27.0 [facility] Comment on above: Performed By: #### JIGAR NATH ####[address] [place], [place] HCO3 (Bld) [Moles/Vol] 26.9 mmol/L High 21.0-25.0 [facility] Comment on above: Performed By: #### JIGAR NATH ####[address] Hemoglobin (Bld) [Mass/Vol] 8.6 g/dL Normal ScreenOnly [facility] Comment on above: Performed By: #### JIGAR NATH ####[address] [place], [place] Oxygen (Bld) [Partial pressure] 102.4 mm[Hg] High 80.0-100.0 [facility] Comment on above: Performed By: #### JIGAR NATH ####[address] Oxygen saturation in Blood 97.7 % Normal 95.0-100.0 [facility] Comment on above: Performed By: #### JIGAR NATH ####[address] pCO2 38.8 mm[Hg] Normal 35.0-45.0 [facility] Comment on above: Performed By: #### JIGAR NATH ####[address] pH 7.459 High 7.350-7.450 [facility] Comment on above: Performed By: #### JIGAR NATH ####[address] Std Base Excess 2.9 mmol/L Normal -3.0-3.0 [facility] Comment on above: Performed By: #### JIGAR NATH ####[address] FIO2 No data Normal [facility] Comment on above: Performed By: #### Jacek ALBRIGHT3ABG ####[address] [place], [place] BLOOD GAS, ARTERIALon 2020 Base Excess, Arterial 2.9 mmol/L -3.0 - 3.0 mmol/L [facility] CO2 [Moles/Vol] 28.1 mmol/L High 23.0 - 27.0 mmol/L [facility] FIO2 Arterial No data [facility] HCO3 (Bld) [Moles/Vol] 26.9 mmol/L High 21.0 - 25.0 mmol/L [facility] Hemoglobin (Bld) [Mass/Vol] 8.6 g/dL ScreenOnly [facility] Interpretation and review of laboratory results Abnormal [facility] Oxygen saturation in Blood 97.7 % 95.0 - 100.0 % [facility] pCO2, Arterial 38.8 mm[Hg] 35.0 - 45.0 mm[Hg] [facility] pH, Arterial 7.459 High [facility] pO2, Arterial 102.4 mm[Hg] High 80.0 - 100.0 mm[Hg] [facility] Basic Metabolic Panelon Anion gap [Moles/Vol] 1 mmol/L Low 3-13 [facility] Comment on above: Performed By: #### Jacek HORNER, ABG ####[address] [place], [place] Calcium [Mass/Vol] 7.9 mg/dL Low 8.4-10.4 [facility] Comment on above: Performed By: #### Jacek ALBRIGHT3, ABG ####[address] [place] [address] CO2 [Moles/Vol] 28 mmol/L Normal 22-30 [facility] Comment on above: Performed By: #### Jacek ALBRIGHT3, ABG ####[address] [place] [address] Glucose [Mass/Vol] 105 mg/dL High 70-100 [facility] Comment on above: Performed By: #### Jacek ALBRIGHT3, ABG ####[facility] [place], [place] Urea nitrogen [Mass/Vol] 19 mg/dL Normal 9-20 [facility] Comment on above: Performed By: #### Jacek ALBRIGHT3JIGAR ####[facility] [place], [place] Creatinine [Mass/Vol] 0.54 mg/dL Normal 0.52-1.25 [facility] Comment on above: Performed By: #### JIGAR NATH ####[address] [place], [place] eGFR OTHER > 90.0 Normal >60 [facility] Comment on above: Result Comment: KDIG O guidelines provide the following GFR categories:Stage GFR(ml/min/1.73 m2) TermsG1 >=90 Normal or highG2 60-89 Mildly decreased*G3a 45-59 Mildly to moderately [id number] 30-44 Moderately to severely decreasedG4 15-29 Severely [...] creatinine secretion. Performed By: #### JIGAR NATH ####[facility] [place], [place] GFR/1.73 sq M.predicted among blacks MDRD (S/P/Bld) [Vol rate/Area] mL/min/{1.73_m2} Normal >60 [facility] Comment on above: Performed By: #### JIGAR NATH ####[facility] [place], [place] Potassium [Moles/Vol] 3.5 mmol/L Normal 3.5-5.1 [facility] Comment on above: Performed By: #### Jacek HORNER G ####[facility] [place] [address] Chloride [Moles/Vol] 115 mmol/L High 98-107 [facility] Comment on above: Performed By: #### B NATALEE3, ABG ####[facility] [place] [address] Sodium [Moles/Vol] 144 mmol/L Normal 135-145 [facility] Comment on above: Performed By: #### B NATALEE3, ABG ####[address] [place] [address] Anion gap [Moles/Vol] 1 mmol/L Low 3 - 13 mmol/L [facility] Calcium [Mass/Vol] 7.9 mg/dL Low 8.4 - 10. 4 mg/dL [facility] Chloride [Moles/Vol] 115 mmol/L High 98 - 10 7 mmol/L [facility] CO2 [Moles/Vol] 28 mmol/L 22 - 30 mmol/L [facility] Creatinine [Mass/Vol] 0.54 mg/dL 0.52 - 1.25 mg/dL [facility] EGFR IF NonAfrican Bermudian >90.0 >60 mL/min [facility] GFR/1.73 sq M.predicted among blacks MDRD (S/P/Bld) [Vol rate/Area] mL/min/{1.73_m2} >60 mL/min [facility] Glucose [Mass/Vol] 105 mg/dL High 70 - 100 mg/dL [facility] Interpretation and review of laboratory results Abnormal [facility] Potassium [Moles/Vol] 3.5 mmol/L 3.5 - 5.1 mmol/L [facility] Sodium [Moles/Vol] 144 mmol/L 135 - 145 mmol/L [facility] Urea nitrogen (BldV) [Mass/Vol] 19 mg/dL 9 - 20 mg/dL [facility] CBCon 12-25-2020 Hematocrit (Bld) [Volume fraction] 26.3 % Low 35.0 - 47.0 % [facility] Hemoglobin.gastrointe stinal spec 1 Ql (Stl) 8.6 g/dL Low 11.7 - 16.0 g/dL [facility] Interpretation and review of laboratory results Abnormal [...] 10*6/uL Low 3.80 - 5.2 0 10*6/uL [facility] WBC (Bld) [#/Vol] 15.1 10*3/uL High 3.6 - 10.7 10*3/uL [facility] CULTURE MYCOBACTERIA Conc.on 12-25-2020 CULTURE MYCOBACTERIA Conc. CULTURE MYCOBACTERIA Conc. --> Status: F No acid-fast bacilli isolated after 6 weeks incubation. STAIN ACID-FAST --> Status: F No acid-fast bacilli seen in smear. - Method: Fluorescent Stain - Method: Fluorescent Stain Normal [facility] Comment on above: Performed By: #### C /TBC ####[address] [place], [place] Fungal stainon 12-25-2020 Fungus Stain [facility] Hemogramon 12-25-2020 Erythrocyte distribution width (RBC) [Ratio] 15.1 % High 11.5-14.5 [facility] Comment on above: Performed By: #### H EMOG ####[address] [place], [place] Hematocrit (Bld) [Volume fraction] 26.3 % Low 35.0-47.0 [facility] Comment on above: Performed By: #### H EMOG ####[address] [place], [place] Hemoglobin (Bld) [Mass/Vol] 8.6 g/dL Low 11.7-16.0 [facility] Comment on above: Performed By: #### H EMOG ####[address] MCH (RBC) [Entitic mass] 29.8 pg Normal 26.0-34.0 [facility] Comment on above: Performed By: #### H EMOG ####[address] MCHC 32.6 % Normal 32.0-36.0 [facility] Comment on above: Performed By: #### H EMOG ####[address] MCV (RBC) [Entitic vol] 91.4 fL Normal 79.0-98.0 [facility] Comment on above: Performed By: #### H EMOG ####[address] Platelet mean volume (Bld) [Entitic vol] 9.1 fL Normal 7.4-10.4 [facility] Comment on above: Performed By: #### H EMOG ####[address] Platelets (Bld) [#/Vol] 381 10*3/uL Normal 140-440 [facility] Comment on above: Performed By: #### H EMOG ####[address] RBC (Bld) [#/Vol] 2.88 10*6/uL Low 3.80-5.20 [facility] Comment on above: Performed By: #### H EMOG ####[address] WBC (Bld) [#/Vol] 15.1 10*3/uL High 3.6-10.7 [facility] Comment on above: Performed By: #### H EMOG ####[address] Op Noteon 12-25-2020 Op Note Normal [facility] Op Note Normal [facility] STAIN FUNGUSon 12-25-2020 STAIN FUNGUS STAIN FUNGUS --> Sta tus: F No fungal elements seen. - Method: Direct Exam by Calcofluor Stain - Method: Direct Exam by Calcofluor Stain Normal [facility] Comment on above: Performed By: #### S /FUN ####[facility] [place], [place] VL LOWER EXTREMITY BILATERAL VENOUS DUPLEXon 12-25-2020 [facility] Work Phone: Radiology Study observation (narrative) [facility] Work Phone: VL LOWER EXTREMITY BILATERAL VENOUS DUPLEXOrdered By: Karrie Rosenberg on 12-25-2020 [facility] Work Phone: VL Venous Duplex US Lower Ex t Bilateralon 12-25-2020 VL Venous Duplex US Lower Ext Bilateral Normal [facility] Arterial Blood Gaseson 12-24 CO2 [Moles/Vol] 26.9 mmol/L Normal 23.0-27.0 [facility] Comment on above: Performed By: #### A BG BMP3 ####[facility] [employer] [id number] [place], [place] HCO3 (Bld) [Moles/Vol] 25.9 mmol/L High 21.0-25.0 [facility] Comment on above: Performed By: #### A BG BMP3 ####[facility] [id number] [place], [place] Hemoglobin (Bld) [Mass/Vol] 9.7 g/dL Normal ScreenOnly [facility] Comment on above: Performed By: #### A BG, BMP3 ####[facility] [employer] [facility] [id number] [place], [place] Oxygen (Bld) [Partial pressure] 92.9 mm[Hg] Normal 80.0-100.0 [facility] Comment on above: Performed By: #### A BG, BMP3 ####[facility] [employer] [id number] [place], [place] Oxygen saturation in Blood 97.1 % Normal 95.0-100.0 [facility] Comment on above: Performed By: #### A BG, BMP3 ####[facility] [id number] [place] [address] pCO2 33.3 mm[Hg] Low 35.0-45.0 [facility] Comment on above: Performed By: #### A BG, BMP3 ####[facility] [place] [address] pH 7.509 High 7.350-7.450 [facility] Comment on above: Performed By: #### A BG, BMP3 ####[facility] [id number] [place] [address] Std Base Excess 3.0 mmol/L Normal -3.0-3.0 [facility] Comment on above: Performed By: #### A BG, BMP3 ####[address] [place] [address] FIO2 No data Normal [facility] Comment on above: Performed By: #### A BG, BMP3 ####[address] [place] [address] BLOOD GAS, ARTERIALon 2020 Base Excess, Arterial 3.0 mmol/L -3.0 - 3.0 mmol/L [facility] CO2 [Moles/Vol] 26.9 mmol/L 23.0 - 27.0 mmol/L [facility] FIO2 Arterial No data [facility] HCO3 (Bld) [Moles/Vol] 25.9 mmol/L High 21.0 - 25.0 mmol/L [facility] Hemoglobin (Bld) [Mass/Vol] 9.7 g/dL ScreenOnly [facility] Interpretation and review of laboratory results Abnormal [facility] Oxygen saturation in Blood 97.1 % 95.0 - 100.0 % [facility] pCO2, Arterial 33.3 mm[Hg] Low 35.0 - 45.0 mm[Hg] [facility] pH, Arterial 7.509 High [facility] pO2, Arterial 92.9 mm[Hg] 80.0 - 100.0 mm[Hg] [facility] Basic Metabolic Panelon Anion gap [Moles/Vol] 3 mmol/L Normal 3-13 [facility] Comment on above: Performed By: #### A BG BMP3 ####[employer] [id number] [place], [place] CO2 [Moles/Vol] 28 mmol/L Normal 22-30 [facility] Comment on above: Performed By: #### A BG BMP3 ####[facility] [employer] [id number] [place], [place] Creatinine [Mass/Vol] 0.63 mg/dL Normal 0.52-1.25 [facility] Comment on above: Performed By: #### A BG BMP3 ####[facility] [employer] [id number] [place], [place] eGFR OTHER > 90.0 Normal >60 [facility] Comment on above: Result Comment: KDIG O guidelines provide the following GFR categories:Stage GFR(ml/min/1.73 m2) TermsG1 >=90 Normal or highG2 60-89 Mildly decreased*G3a 45-59 Mildly to moderately [id number] 30-44 Moderately to severely decreasedG4 15-29 Severely [...] secretion. Performed By: #### A BG BMP3 ####[facility] [employer] [id number] [place], [place] GFR/1.73 sq M.predicted among blacks MDRD (S/P/Bld) [Vol rate/Area] mL/min/{1.73_m2} Normal >60 [facility] Comment on above: Performed By: #### A BG BMP3 ####[facility] [employer] [id number] [place], [place] Urea nitrogen [Mass/Vol] 20 mg/dL Normal 9-20 [facility] Comment on above: Performed By: #### A BG BMP3 ####[address] [place] [address] Chloride [Moles/Vol] 116 mmol/L High 98-107 [facility] Comment on above: Performed By: #### A BG, BMP3 ####[address] [place], [place] Potassium [Moles/Vol] 3.5 mmol/L Normal 3.5-5.1 [facility] Comment on above: Performed By: #### A BG BMP3 ####[address] [place] Sodium [Moles/Vol] 147 mmol/L High 135-145 [facility] Comment on above: Performed By: #### A BG BMP3 ####[address] [place] Calcium [Mass/Vol] 8.2 mg/dL Low 8.4-10.4 [facility] Comment on above: Performed By: #### A BG BMP3 ####[address] [place], [place] Glucose [Mass/Vol] 112 mg/dL High 70-100 [facility] Comment on above: Performed By: #### A BG BMP3 ####[address] [place], [place] Anion gap [Moles/Vol] 3 mmol/L 3 - 13 mmol/L [facility] Chloride [Moles/Vol] 116 mmol/L High 98 - 10 7 mmol/L [facility] CO2 [Moles/Vol] 28 mmol/L 22 - 30 mmol/L [facility] Creatinine [Mass/Vol] 0.63 mg/dL 0.52 - 1.25 mg/dL [facility] EGFR IF NonAfrican Bermudian >90.0 >60 mL/min [facility] GFR/1.73 sq M.predicted among blacks MDRD (S/P/Bld) [Vol rate/Area] mL/min/{1.73_m2} >60 mL/min [facility] Interpretation and review of laboratory results Abnormal [facility] Potassium [Moles/Vol] 3.5 mmol/L 3.5 - 5.1 mmol/L [facility] Sodium [Moles/Vol] 147 mmol/L High 135 - 145 mmol/L [facility] Urea nitrogen (BldV) [Mass/Vol] 20 mg/dL 9 - 20 mg/dL [facility] CBCon 12-24-2020 Hematocrit (Bld) [Volume fraction] 29.5 % Low 35.0 - 47.0 % [facility] Hemoglobin.gastrointe stinal spec 1 Ql (Stl) 9.7 g/dL Low 11.7 - 16.0 g/dL [facility] Interpretation and review of laboratory results Abnormal [...] 17.6 10*3/uL High 3.6 - 10.7 10*3/uL [facility] CR Abdomen APon 12-24-2020 CR Abdomen AP Normal [facility] CR Chest Portableon 12-25-19 CR Chest Portable Normal [facility] CR Chest Portable Normal [facility] Complete Urinalysison 2020 Appearance (U) Clear Normal Clear [facility] Comment on above: Result Comment: . Performed By: #### C UA2 ####[facility] [id number] [place] [address] Bacteria Few Abnormal Negative [facility] Comment on above: Result Comment: . Performed By: #### C UA2 ####[facility] [employer] [id number] [place], [place] Bilirubin,Urine Negative Normal Negative [facility] Comment on above: Result Comment: . Performed By: #### C UA2 ####[facility] [employer] [id number] [place], [place] Cast, Hyaline Negative Normal Negative [facility] Comment on above: Result Comment: . Performed By: #### C UA2 ####[facility] [employer] [id number] [place], [place] Color (U) Yellow Normal Lt. Yellow [facility] Comment on above: Result Comment: . Performed By: #### C UA2 ####[facility] [employer] [facility] [address] [place], [place] Glucose Ql (U) Normal Normal Normal (<70) [facility] Comment on above: Result Comment: . Performed By: #### C UA2 ####[facility] [employer] [id number] [place], [place] Ketone,Urine Trace Abnormal Negative [facility] Comment on above: Result Comment: . Performed By: #### C UA2 ####[facility] [employer] [id number] [place], [place] Leukocytes,Urine 250 Richard/uL Abnormal Negative [facility] Comment on above: Result Comment: . Performed By: #### C UA2 ####[facility] [employer] [id number] [place], [place] Mucous Threads Few Normal Negative [facility] Comment on above: Result Comment: . Performed By: #### C UA2 ####[facility] [employer] [id number] [place], [place] Nitrites,Urine Negative Normal Negative [facility] Comment on above: Result Comment: . Performed By: #### C UA2 ####[facility] [employer] [id number] [place], [place] Non-Squamous Epithelial 2 /[HPF] Abnormal Negative [facility] Comment on above: Result Comment: . Performed By: #### C UA2 ####[address] [place], [place] Occult Blood,Urine 0.06 mg/dL Abnormal Negative [facility] Comment on above: Result Comment: . Performed By: #### C UA2 ####[address] pH,Urine 6.5 Normal 5.0-8.0 [facility] Comment on above: Result Comment: . Performed By: #### C UA2 ####[address] Protein (U) [Mass/Vol] 50 mg/dL Abnormal Negative [facility] Comment on above: Result Comment: . Performed By: #### C UA2 ####[address] RBC, Urine 11 - 25 Abnormal 0-2 [facility] Comment on above: Result Comment: . Performed By: #### C UA2 ####[address] Specific [place],Urine 1.029 Normal 1.005 - 1.030 [facility] Comment on above: Result Comment: . Performed By: #### C UA2 ####[address] Squamous Epithelial 3 - 5 Normal 3-5 [facility] Comment on above: Result Comment: . Performed By: #### C UA2 ####[address] Urobilinogen,Urine 2 mg/dL Abnormal Normal (0-1) [facility] Comment on above: Result Comment: . Performed By: #### C UA2 ####[address] WBC, Urine 11 - 25 Abnormal 0-5 [facility] Comment on above: Result Comment: . Performed By: #### C UA2 ####[address] [address] Gram Stainon 12-24-2020 Gram Stain Result [facility] Hemogramon 12-24-2020 Erythrocyte distribution width (RBC) [Ratio] 14.9 % High 11.5-14.5 [facility] Comment on above: Performed By: #### H EMOG ####[address] [place], [place] Hematocrit (Bld) [Volume fraction] 29.5 % Low 35.0-47.0 [facility] Comment on above: Performed By: #### H EMOG ####[address] Hemoglobin (Bld) [Mass/Vol] 9.7 g/dL Low 11.7-16.0 [facility] Comment on above: Performed By: #### H EMOG ####[address] MCH (RBC) [Entitic mass] 29.7 pg Normal 26.0-34.0 [facility] Comment on above: Performed By: #### H EMOG ####[address] MCHC 32.8 % Normal 32.0-36.0 [facility] Comment on above: Performed By: #### H EMOG ####[address] MCV (RBC) [Entitic vol] 90.5 fL Normal 79.0-98.0 [facility] Comment on above: Performed By: #### H EMOG ####[address] Platelet mean volume (Bld) [Entitic vol] 9.2 fL Normal 7.4-10.4 [facility] Comment on above: Performed By: #### H EMOG ####[address] Platelets (Bld) [#/Vol] 323 10*3/uL Normal 140-440 [facility] Comment on above: Performed By: #### H EMOG ####[address] RBC (Bld) [#/Vol] 3.26 10*6/uL Low 3.80-5.20 [facility] Comment on above: Performed By: #### H EMOG ####[address] WBC (Bld) [#/Vol] 17.6 10*3/uL High 3.6-10.7 [facility] Comment on above: Performed By: #### H EMOG ####[address] Procalcitoninon 12-24-2020 Procalcitonin 0.14 ng/mL High 0.00-0.[address] [facility] Comment on above: Performed By: #### P MICHELLE ####[address] Interpretation See Below [facility] Interpretation and review of laboratory results Abnormal [facility] Procalcitonin 0.14 ng/mL High 0.00 - 0.09 ng/mL [facility] Interpretation See Below Normal [facility] Comment on above: Result Comment: PCT <0.50 = Low risk of severe sepsis and/or septic shock.PCT >2.00 = High risk of severe sepsis and/or septic shock. Performed By: #### P MICHELLE ####[address] STAIN GRAMon 12-24-2020 STAIN GRAM STAIN GRAM --> Statu s: F Moderate polymorphonuclear cells/lpf. Rare gram negative bacilli. Rare gram positive cocci in clusters. Rare gram negative bacilli. Rare gram positive cocci in clusters. Normal [facility] Comment on above: Performed By: #### C S/RE ####[address] [id number] #### S/GRM ####[address] Urinalysison 12-24-2020 Appearance (U) Clear Clear NA [facility] Bacteria, UA Few Abnormal Negative /[HPF] [facility] Bilirubin Urine Negative Negative mg/dL [facility] Color (U) Yellow Lt. Yellow NA [facility] Glucose, Ur Normal Normal (<70) mg/dL [facility] Hyaline Casts, UA Negative Negative /[LPF] [facility] Interpretation and review of laboratory results Abnormal [...] Abnormal 0 - 2 /[HPF] [facility] Specific [place], Urine 1.029 [facility] Squam Epithel, UA 3-5 3 - 5 /[HPF] [facility] Urobilinogen, Urine 2 mg/dL Abnormal Normal (0-1) [facility] WBC, UA 11-25 Abnormal 0 - 5 /[HPF] [facility] XR CHEST PORTABLEon 12-25-19 21 [facility] Work Phone: [facility] Work Phone: Radiology Study observation (narrative) [facility] Work Phone: Arterial Blood Gaseson 12-23 CO2 [Moles/Vol] 28.5 mmol/L High 23.0-27.0 [facility] Comment on above: Performed By: #### A BG ####[facility] [place] [address] HCO3 (Bld) [Moles/Vol] 27.2 mmol/L High 21.0-25.0 [facility] Comment on above: Performed By: #### A BG ####[facility] [place] [address] Hemoglobin (Bld) [Mass/Vol] 6.6 g/dL Normal ScreenOnly [facility] Comment on above: Performed By: #### A BG ####[address] [place], [place] Oxygen (Bld) [Partial pressure] 115.0 mm[Hg] High 80.0-100.0 [facility] Comment on above: Performed By: #### A BG ####[address] [place], [place] Oxygen saturation in Blood 98.2 % Normal 95.0-100.0 [facility] Comment on above: Performed By: #### A BG ####[address] [place], [place] pCO2 42.7 mm[Hg] Normal 35.0-45.0 [facility] Comment on above: Performed By: #### A BG ####[address] pH 7.422 Normal 7.350-7.450 [facility] Comment on above: Performed By: #### A BG ####[address] [address] [place], [place] Std Base Excess 2.5 mmol/L Normal -3.0-3.0 [facility] Comment on above: Performed By: #### A BG ####[address] [place], [place] FIO2 No data Normal [facility] Comment on above: Performed By: #### A BG ####[address] BLOOD GAS, ARTERIALon 2020 Base Excess, Arterial 2.5 mmol/L -3.0 - 3.0 mmol/L [facility] CO2 [Moles/Vol] 28.5 mmol/L High 23.0 - 27.0 mmol/L [facility] FIO2 Arterial No data [facility] HCO3 (Bld) [Moles/Vol] 27.2 mmol/L High 21.0 - 25.0 mmol/L [facility] Hemoglobin (Bld) [Mass/Vol] 6.6 g/dL ScreenOnly [facility] Interpretation and review of laboratory results Abnormal [facility] Oxygen saturation in Blood 98.2 % 95.0 - 100.0 % [facility] pCO2, Arterial 42.7 mm[Hg] 35.0 - 45.0 mm[Hg] [facility] pH, Arterial 7.422 [facility] pO2, Arterial 115.0 mm[Hg] High 80.0 - 100.0 mm[Hg] [facility] Basic Metabolic Panelon 11-0 -2020 Calcium [Mass/Vol] 8.2 mg/dL Low 8.4-10.4 [facility] Comment on above: Performed By: #### B MP3, HEMOG, MG3 ####[address] [place] [address] Glucose [Mass/Vol] 130 mg/dL High 70-100 [facility] Comment on above: Performed By: #### B MP3, HEMOG, MG3 ####[address] [place] [address] Urea nitrogen [Mass/Vol] 18 mg/dL Normal 9-20 [facility] Comment on above: Performed By: #### B MP3, HEMOG, MG3 ####[facility] [employer] [id number] [place] [address] Anion gap [Moles/Vol] 2 mmol/L Low 3-13 [facility] Comment on above: Performed By: #### B MP3, HEMOG, MG3 ####[facility] [employer] [id number] [place] [address] CO2 [Moles/Vol] 25 mmol/L Normal 22-30 [facility] Comment on above: Performed By: #### B MP3, HEMOG, MG3 ####[facility] [employer] [id number] [place] [address] Creatinine [Mass/Vol] 0.60 mg/dL Normal 0.52-1.25 [facility] Comment on above: Performed By: #### B MP3, HEMOG, MG3 ####[address] [place] [address] eGFR OTHER > 90.0 Normal >60 [facility] Comment on above: Result Comment: KDIG O guidelines provide the following GFR categories:Stage GFR(ml/min/1.73 m2) TermsG1 >=90 Normal or highG2 60-89 Mildly decreased*G3a 45-59 Mildly to moderately cisfifwxjE4q 30-44 Moderately to severely decreasedG4 15-29 Severely [...] secretion. Performed By: #### Jacek ALBRIGHT3YVONNEOG MG3 ####[facility] [employer] [address] GFR/1.73 sq M.predicted among blacks MDRD (S/P/Bld) [Vol rate/Area] mL/min/{1.73_m2} Normal >60 [facility] Comment on above: Performed By: #### Jacek ALBRIGHT3YVONNEOG MG3 ####[facility] [employer] [place], [place] Chloride [Moles/Vol] 117 mmol/L High 98-107 [facility] Comment on above: Performed By: #### Jacek ALBRIGHT3 HEMOG, MG3 ####[facility] [employer] [id number] [place], [place] Potassium [Moles/Vol] 3.9 mmol/L Normal 3.5-5.1 [facility] Comment on above: Performed By: #### Jacek ALBRIGHT3 HEMOG, MG3 ####[facility] [employer] [place], [place] Sodium [Moles/Vol] 144 mmol/L Normal 135-145 [facility] Comment on above: Performed By: #### Jacek MP3, HEMOG, MG3 ####[facility] [employer] [id number] [place], [place] Anion gap [Moles/Vol] 2 mmol/L Low 3 - 13 mmol/L [facility] Calcium [Mass/Vol] 8.2 mg/dL Low 8.4 - 10. 4 mg/dL [facility] Chloride [Moles/Vol] 117 mmol/L High 98 - 10 7 mmol/L [facility] CO2 [Moles/Vol] 25 mmol/L 22 - 30 mmol/L [facility] Creatinine [Mass/Vol] 0.6 mg/dL 0.52 - 1.25 mg/dL [facility] EGFR IF NonAfrican Bermudian >90.0 >60 mL/min [facility] GFR/1.73 sq M.predicted [...] 10*6/uL Low 3.80 - 5.2 0 10*6/uL [facility] WBC (Bld) [#/Vol] 14.5 10*3/uL High 3.6 - 10.7 10*3/uL [facility] Hemoglobin AND Hematocriton 12-23-2020 Hematocrit (Bld) [Volume fraction] 28.0 % Low 35.0-47.0 [facility] Comment on above: Performed By: #### H GHCT ####[address] [place], [place] Hemoglobin (Bld) [Mass/Vol] 9.3 g/dL Low 11.7-16.0 [facility] Comment on above: Performed By: #### H GHCT ####[address] [place], [place] Hemoglobin and Hematocrit, B loodon 12-23-2020 Hematocrit (Bld) [Volume fraction] 28.0 % Low 35.0 - 47.0 % [facility] Hemoglobin.gastrointe stinal spec 1 Ql (Stl) 9.3 g/dL Low 11.7 - 16.0 g/dL [facility] Interpretation and review of laboratory results Abnormal [facility] Hemogramon 12-23-2020 Erythrocyte distribution width (RBC) [Ratio] 14.7 % High 11.5-14.5 [facility] Comment on above: Performed By: #### B MP3, HEMOG, MG3 ####[address] [place] Hematocrit (Bld) [Volume fraction] 20.0 % Low 35.0-47.0 [facility] Comment on above: Performed By: #### B MP3, HEMOG, MG3 ####[address] [place] Hemoglobin (Bld) [Mass/Vol] 6.6 g/dL Critically low 11.7-16.0 [facility] Comment on above: Result Comment: REPE ATED Performed By: #### B MP3, HEMOG, MG3 ####[address] [place], [place] MCH (RBC) [Entitic mass] 29.9 pg Normal 26.0-34.0 [facility] Comment on above: Performed By: #### Jacek HORNER HEMOG, MG3 ####[address] [place] MCHC 33.2 % Normal 32.0-36.0 [facility] Comment on above: Performed By: #### Jacek ALBRIGHT3, HEMOG, MG3 ####[address] [place], [place] MCV (RBC) [Entitic vol] 90.0 fL Normal 79.0-98.0 [facility] Comment on above: Performed By: #### Jacek HORNER HEMOG, MG3 ####[address] Platelet mean volume (Bld) [Entitic vol] 9.1 fL Normal 7.4-10.4 [facility] Comment on above: Performed By: #### Jacek HORNER HEMOG, MG3 ####[address] Platelets (Bld) [#/Vol] 238 10*3/uL Normal 140-440 [facility] Comment on above: Performed By: #### Jacek HORNER, HEMOG, MG3 ####[address] RBC (Bld) [#/Vol] 2.22 10*6/uL Low 3.80-5.20 [facility] Comment on above: Performed By: #### Jacek MP3, HEMOG, MG3 ####[address] [place], [place] WBC (Bld) [#/Vol] 14.5 10*3/uL High 3.6-10.7 [facility] Comment on above: Performed By: #### Jacek MP3, HEMOG, MG3 ####[address] Leukodepleted Red Cellson Leukodepleted Red Cells Normal [facility] Comment on above: Performed By: #### T SGL ####[facility]#### LRC ####[address] [address] Magnesiumon 12-23-2020 Magnesium [Mass/Vol] 2.2 mg/dL Normal 1.6-2.3 [facility] Comment on above: Performed By: #### B MP3, HEMOG, MG3 ####[address] [place] [address] Magnesium [Mass/Vol] 2.2 mg/dL 1.6 - 2 .3 mg/dL [facility] Panel Informationon 12-23 Radiology Study observation (narrative) [facility] Work Phone: [phone] [facility] Phosphoruson 12-23-2020 Phosphate [Mass/Vol] 2.7 mg/dL Normal 2.5-4.5 [facility] Comment on above: Performed By: #### P HOS3 ####[address] [place] [address] XR ABDOMEN (KUB) (SINGLE AP VIEW)on 12-23-2020 [facility] Work Phone: [facility] Work Phone: XR CHEST PORTABLEon 12-24-19 [facility] Work Phone: [facility] Work Phone: Arterial Blood Gaseson 12-22 FIO2 No data Normal [facility] Comment on above: Performed By: #### H EMOG, BMP3M, ICA, ABG ####[address] [place] [address] CO2 [Moles/Vol] 23.7 mmol/L Normal 23.0-27.0 [facility] Comment on above: Performed By: #### H EMOG, BMP3M, ICA, ABG ####[address] [place] [address] HCO3 (Bld) [Moles/Vol] 22.2 mmol/L Normal 21.0-25.0 [facility] Comment on above: Performed By: #### H EMOG, BMP3M, ICA, ABG ####[address] Hemoglobin (Bld) [Mass/Vol] 6.8 g/dL Normal ScreenOnly [facility] Comment on above: Performed By: #### H EMOG, BMP3M, ICA, ABG ####[address] Oxygen (Bld) [Partial pressure] 121.7 mm[Hg] High 80.0-100.0 [facility] Comment on above: Performed By: #### H EMOG, BMP3M, ICA, ABG ####[address] Oxygen saturation in Blood 98.1 % Normal 95.0-100.0 [facility] Comment on above: Performed By: #### H EMOG, BMP3M, ICA, ABG ####[address] pCO2 48.4 mm[Hg] High 35.0-45.0 [facility] Comment on above: Performed By: #### H EMOG, BMP3M, ICA, ABG ####[address] pH 7.280 Low 7.350-7.450 [facility] Comment on above: Performed By: #### H EMOG, BMP3M, ICA, ABG ####[address] Std Base Excess -4.2 mmol/L Low -3.0-3.0 [facility] Comment on above: Performed By: #### H EMOG, BMP3M, ICA, ABG ####[address] CO2 [Moles/Vol] 24.0 mmol/L Normal 23.0-27.0 [facility] Comment on above: Performed By: #### H EMDMiguel Ángel ABG, BMP3 ####[address] HCO3 (Bld) [Moles/Vol] 23.0 mmol/L Normal 21.0-25.0 [facility] Comment on above: Performed By: #### H EMDMiguel Ángel ABG, BMP3 ####[address] Hemoglobin (Bld) [Mass/Vol] 9.5 g/dL Normal ScreenOnly [facility] Comment on above: Performed By: #### H CURLY ABG, BMP3 ####[address] Oxygen (Bld) [Partial pressure] 84.0 mm[Hg] Normal 80.0-100.0 [facility] Comment on above: Performed By: #### H CURLY ABG, BMP3 ####[address] Oxygen saturation in Blood 96.7 % Normal 95.0-100.0 [facility] Comment on above: Performed By: #### H CURLY ABG, BMP3 ####[address] pCO2 32.4 mm[Hg] Low 35.0-45.0 [facility] Comment on above: Performed By: #### H CURLY ABG, BMP3 ####[address] pH 7.469 High 7.350-7.450 [facility] Comment on above: Performed By: #### H EMDMiguel Ángel, ABG, BMP3 ####[address] Std Base Excess -0.3 mmol/L Normal -3.0-3.0 [facility] Comment on above: Performed By: #### H EMDF, ABG, BMP3 ####[address] [place] [address] FIO2 No data Normal [facility] Comment on above: Performed By: #### H EMDF, ABG, ZACH3 ####[address] [address] BLOOD GAS, ARTERIALon 2020 Base Excess, Arterial -4.2 mmol/L Low -3.0 - 3.0 mmol/L [facility] CO2 [Moles/Vol] 23.7 mmol/L 23.0 - 27.0 mmol/L [facility] FIO2 Arterial No data [facility] HCO3 (Bld) [Moles/Vol] 22.2 mmol/L 21.0 - 25.0 mmol/L [facility] Hemoglobin (Bld) [Mass/Vol] 6.8 g/dL ScreenOnly [facility] Oxygen saturation in Blood 98.1 % 95.0 [...] [facility] Hemoglobin (Bld) [Mass/Vol] 9.5 g/dL ScreenOnly [facility] Interpretation and review of laboratory results Abnormal [facility] Oxygen saturation in Blood 96.7 % 95.0 - 100.0 % [facility] pCO2, Arterial 32.4 mm[Hg] Low 35.0 - 45.0 mm[Hg] [facility] pH, Arterial 7.469 High [facility] pO2, Arterial 84.0 mm[Hg] 80.0 - 100.0 mm[Hg] [facility] Basic Metabolic Panelon Anion gap [Moles/Vol] 5 mmol/L Normal 3-13 [facility] Comment on above: Performed By: #### H EMOG, BMP3M, ICA, ABG ####[address] [place], [place] Calcium [Mass/Vol] 7.5 mg/dL Low 8.4-10.4 [facility] Comment on above: Performed By: #### H EMOG, BMP3M, ICA, ABG ####[address] [place], [place] CO2 [Moles/Vol] 22 mmol/L Normal 22-30 [facility] Comment on above: Performed By: #### H EMOG, BMP3M, ICA, ABG ####[address] [place], [place] Glucose [Mass/Vol] 109 mg/dL High 70-100 [facility] Comment on above: Performed By: #### H EMOG, BMP3M, ICA, ABG ####[address] [place], [place] Urea nitrogen [Mass/Vol] 15 mg/dL Normal 9-20 [facility] Comment on above: Performed By: #### H EMOG, BMP3M, ICA, ABG ####[address] [place] Creatinine [Mass/Vol] 0.62 mg/dL Normal 0.52-1.25 [facility] Comment on above: Performed By: #### H EMOG, BMP3M, ICA, ABG ####[address] [place] eGFR OTHER > 90.0 Normal >60 [facility] Comment on above: Result Comment: KDIG O guidelines provide the following GFR categories:Stage GFR(ml/min/1.73 m2) TermsG1 >=90 Normal or highG2 60-89 Mildly decreased*G3a 45-59 Mildly to moderately ucabtxikvQ2y 30-44 Moderately to severely decreasedG4 15-29 Severely decreasedG5 <15 Kidney failure*Relative to young adult level.In the absence of evidence of kidney damage, neither GFRcategory G1 nor G2 fulfill the criteria for CKD.The CKD-EPI equation is validated in individuals 18 yearsof age and older. Currently the best equation forestimating glomerular filtration rate (GFR) from serumcreatinine in children is the Bedside Uy equation.It is less accurate in patients with extremes of musclemass, restriction of dietary protein, ingestion of creatine,extra-renal metabolism of creatinine, or treatment withmedications that affect renal tubular creatinine secretion. Performed By: #### H ZACH MAO3M, ICA, ABG ####[address] [place], [place] GFR/1.73 sq M.predicted among blacks MDRD (S/P/Bld) [Vol rate/Area] mL/min/{1.73_m2} Normal >60 [facility] Comment on above: Performed By: #### H DAYLIN, BMP3M, ICA, ABG ####[address] [place], [place] Chloride [Moles/Vol] 118 mmol/L High 98-107 [facility] Comment on above: Performed By: #### H DAYLIN, BMP3M, ICA, ABG ####[address] Potassium [Moles/Vol] 4.3 mmol/L Normal 3.5-5.1 [facility] Comment on above: Performed By: #### H DAYLIN, BMP3M, ICA, ABG ####[address] [place] [address] Sodium [Moles/Vol] 145 mmol/L Normal 135-145 [facility] Comment on above: Performed By: #### H EMOJoi, BMP3M, ICA, ABG ####[address] [place] [address] Anion gap [Moles/Vol] 1 mmol/L Low 3-13 [facility] Comment on above: Performed By: #### H EMDF ABJoi, BMP3 ####[address] [place] [address] Calcium [Mass/Vol] 7.5 mg/dL Low 8.4-10.4 [facility] Comment on above: Performed By: #### H CURLY ABG, BMP3 ####[facility] [place] [address] CO2 [Moles/Vol] 23 mmol/L Normal 22-30 [facility] Comment on above: Performed By: #### H EMDF, ABG, BMP3 ####[facility] [place] [address] Glucose [Mass/Vol] 113 mg/dL High 70-100 [facility] Comment on above: Performed By: #### H EMDF, ABG, BMP3 ####[address] [place] [address] Urea nitrogen [Mass/Vol] 15 mg/dL Normal 9-20 [facility] Comment on above: Performed By: #### H EMDF, ABG, BMP3 ####[address] [place] [address] Creatinine [Mass/Vol] 0.65 mg/dL Normal 0.52-1.25 [facility] Comment on above: Performed By: #### H EMDF, ABG, BMP3 ####[address] [place] [address] eGFR OTHER > 90.0 Normal >60 [facility] Comment on above: Result Comment: KDIG O guidelines provide the following GFR categories:Stage GFR(ml/min/1.73 m2) TermsG1 >=90 Normal or highG2 60-89 Mildly decreased*G3a 45-59 Mildly to moderately lllkbaslsU6l 30-44 Moderately to severely decreasedG4 15-29 Severely [...] Performed By: #### H EMDF, ABG, BMP3 ####[facility] [address] [place], [place] GFR/1.73 sq M.predicted among blacks MDRD (S/P/Bld) [Vol rate/Area] mL/min/{1.73_m2} Normal >60 [facility] Comment on above: Performed By: #### H JIGAR RAWLS, BMP3 ####[facility] [place], [place] Chloride [Moles/Vol] 117 mmol/L High 98-107 [facility] Comment on above: Performed By: #### H JIGAR RAWLS, BMP3 ####[address] [place], [place] Potassium [Moles/Vol] 3.4 mmol/L Low 3.5-5.1 [facility] Comment on above: Performed By: #### H JIGAR RAWLS, BMP3 ####[address] [place] Sodium [Moles/Vol] 141 mmol/L Normal 135-145 [facility] Comment on above: Performed By: #### H JIGAR RAWLS, BMP3 ####[address] [place] Anion gap [Moles/Vol] 1 mmol/L Low 3 - 13 mmol/L [facility] Calcium [Mass/Vol] 7.5 mg/dL Low 8.4 - 10. 4 mg/dL [facility] Chloride [Moles/Vol] 117 mmol/L High 98 - 10 7 mmol/L [facility] CO2 [Moles/Vol] 23 mmol/L 22 - 30 mmol/L [facility] Creatinine [Mass/Vol] 0.65 mg/dL 0.52 - 1.25 mg/dL [facility] EGFR IF NonAfrican B[place]ian >90.0 >60 mL/min [facility] GFR/1.73 sq M.predicted among blacks MDRD (S/P/Bld) [Vol rate/Area] mL/min/{1.73_m2} >60 mL/min [facility] Glucose [Mass/Vol] 113 mg/dL High 70 - 100 mg/dL [facility] Interpretation and review of laboratory results Abnormal [facility] Potassium [Moles/Vol] 3.4 mmol/L Low 3.5 - 5.1 mmol/L [facility] Sodium [Moles/Vol] 141 mmol/L 135 - 145 mmol/L [facility] Urea nitrogen (BldV) [Mass/Vol] 15 mg/dL 9 - 20 mg/dL [facility] Basic Metabolic Panel w/ Ref ruslan to MGon 12-22-2020 Anion gap [Moles/Vol] 5 mmol/L 3 - 13 mmol/L [facility] Calcium [Mass/Vol] 7.5 mg/dL Low 8.4 - 10. 4 mg/dL [facility] Chloride [Moles/Vol] 118 mmol/L High 98 - 10 7 mmol/L [facility] CO2 [Moles/Vol] 22 mmol/L 22 - 30 mmol/L [facility] Creatinine [Mass/Vol] 0.62 mg/dL 0.52 - 1.25 mg/dL [facility] EGFR IF NonAfrican Bermudian >90.0 >60 mL/min [facility] GFR/1.73 sq M.predicted among blacks MDRD (S/P/Bld) [Vol rate/Area] mL/min/{1.73_m2} >60 mL/min [facility] Glucose [Mass/Vol] 109 mg/dL High 70 - 100 mg/dL [facility] Interpretation and review of laboratory results Abnormal [facility] Potassium [Moles/Vol] 4.3 mmol/L 3.5 - 5.1 mmol/L [facility] Sodium [Moles/Vol] 145 mmol/L 135 - 145 mmol/L [facility] Urea nitrogen (BldV) [Mass/Vol] 15 mg/dL 9 - 20 mg/dL [facility] CBCon 12-22-2020 Hematocrit (Bld) [Volume [...] 15.4 10*3/uL High 3.6 - 10.7 10*3/uL [facility] CR Pelvis Complete Minimum 3 Viewson 12-22-2020 CR Pelvis Complete Minimum 3 Views Normal [facility] CR Tibia/Fibula 2 Views Righ ton 12-22-2020 CR Tibia/Fibula 2 Views Right Normal [facility] CT HEAD WO CONTRASTon 2020 [facility] Work Phone: [facility] Work Phone: CT Head or Brain w/o Contras ton 12-22-2020 CT Head or Brain w/o Contrast Normal [facility] Calcium, Ionizedon Ionized Ca 4.20 mg/dL Low 4.30 - 5.20 mg/dL [facility] pH (Bld) 7.32 [pH] [facility] Calcium,Ionizedon 12-22-2020 Ionized Ca,Measured 4.20 mg/dL Low 4.30-5.20 [facility] Comment on above: Performed By: #### H EMOJoi, BMP3M, ICA, ABG ####[facility] [place] [id number] pH, Ionized Calcium 7.32 Normal 7.31-7.46 [facility] Comment on above: Performed By: #### H EMOG, BMP3M, ICA, ABG ####[address] HCG Qualitative, Serumon hCG Qual Negative [facility] Hemogramon 12-22-2020 Erythrocyte distribution width (RBC) [Ratio] 14.9 % High 11.5-14.5 [facility] Comment on above: Performed By: #### H EMOG, BMP3M, ICA, ABG ####[address] Hematocrit (Bld) [Volume fraction] 22.9 % Low 35.0-47.0 [facility] Comment on above: Performed By: #### H EMOG, BMP3M, ICA, ABG ####[address] Hemoglobin (Bld) [Mass/Vol] 7.4 g/dL Low 11.7-16.0 [facility] Comment on above: Performed By: #### H EMOG, BMP3M, ICA, ABG ####[address] MCH (RBC) [Entitic mass] 29.5 pg Normal 26.0-34.0 [facility] Comment on above: Performed By: #### H EMOG, BMP3M, ICA, ABG ####[address] MCHC 32.2 % Normal 32.0-36.0 [facility] Comment on above: Performed By: #### H EMOG, BMP3M, ICA, ABG ####[address] MCV (RBC) [Entitic vol] 91.5 fL Normal 79.0-98.0 [facility] Comment on above: Performed By: #### H EMOG, BMP3M, ICA, ABG ####[address] Platelet mean volume (Bld) [Entitic vol] 8.7 fL Normal 7.4-10.4 [facility] Comment on above: Performed By: #### H EMOG, BMP3M, ICA, ABG ####[address] [place], [place] Platelets (Bld) [#/Vol] 215 10*3/uL Normal 140-440 [facility] Comment on above: Performed By: #### H EMOG, BMP3M, ICA, ABG ####[address] RBC (Bld) [#/Vol] 2.51 10*6/uL Low 3.80-5.20 [facility] Comment on above: Performed By: #### H EMOG, BMP3M, ICA, ABG ####[address] WBC (Bld) [#/Vol] 18.1 10*3/uL High 3.6-10.7 [facility] Comment on above: Performed By: #### H EMOG, BMP3M, ICA, ABG ####[address] Hemogram w/ Autodiffon 12-22 Abs Baso Cnt 0.1 10*3/uL Normal 0.0-0.2 [facility] Comment on above: Performed By: #### H EMDF, ABG, BMP3 ####[address] [place], [place] Abs Neutrophile Cnt 13.6 10*3/uL High 1.8-7.0 [facility] Comment on above: Performed By: #### H EMDF, ABG, BMP3 ####[address] Basophils/100 WBC (Bld) 0.3 % Normal 0.0-2.0 [facility] Comment on above: Performed By: #### H EMDF, ABG, BMP3 ####[address] Eosinophils (Bld) [#/Vol] 0.0 10*3/uL Normal 0.0-0.5 [facility] Comment on above: Performed By: #### H CURLY ABJoi, BMP3 ####[address] Eosinophils/100 WBC (Bld) 0.0 % Low 1.0-6.0 [facility] Comment on above: Performed By: #### H EMDMiguel Ángel, ABG, BMP3 ####[address] Erythrocyte distribution width (RBC) [Ratio] 14.7 % High 11.5-14.5 [facility] Comment on above: Performed By: #### H EMDF, ABG, BMP3 ####[address] Granulocytes/100 WBC (Bld) 88.4 % High 40.0-80.0 [facility] Comment on above: Performed By: #### H EMDF, ABG, BMP3 ####[address] Hematocrit (Bld) [Volume fraction] 26.8 % Low 35.0-47.0 [facility] Comment on above: Performed By: #### H EMDF, ABG, BMP3 ####[address] Hemoglobin (Bld) [Mass/Vol] 9.0 g/dL Low 11.7-16.0 [facility] Comment on above: Performed By: #### H EMDF, ABG, BMP3 ####[address] Lymphocytes (Bld) [#/Vol] 1.1 10*3/uL Normal 1.0-4.3 [facility] Comment on above: Performed By: #### H EMDF, ABG, BMP3 ####[address] Lymphocytes/100 WBC (Bld) 6.8 % Low 20.0-40.0 [facility] Comment on above: Performed By: #### H JIGAR RAWLS, BMP3 ####[address] MCH (RBC) [Entitic mass] 29.8 pg Normal 26.0-34.0 [facility] Comment on above: Performed By: #### H JIGAR RAWLS, BMP3 ####[address] MCHC 33.6 % Normal 32.0-36.0 [facility] Comment on above: Performed By: #### H JIGAR RAWLS, BMP3 ####[address] MCV (RBC) [Entitic vol] 88.7 fL Normal 79.0-98.0 [facility] Comment on above: Performed By: #### H JIGAR RAWLS, BMP3 ####[address] Monocytes (Bld) [#/Vol] 0.7 10*3/uL Normal 0.0-0.8 [facility] Comment on above: Performed By: #### H JIGAR RAWLS, BMP3 ####[address] Monocytes/100 WBC (Bld) 4.5 % Normal 2.0-10.0 [facility] Comment on above: Performed By: #### H CURLY ABJoi, BMP3 ####[address] Platelet mean volume (Bld) [Entitic vol] 9.0 fL Normal 7.4-10.4 [facility] Comment on above: Performed By: #### H EMDMiguel Ángel ABG, BMP3 ####[address] Platelets (Bld) [#/Vol] 217 10*3/uL Normal 140-440 [facility] Comment on above: Performed By: #### H CURLY ABG, BMP3 ####[address] [place], [place] RBC (Bld) [#/Vol] 3.02 10*6/uL Low 3.80-5.20 [facility] Comment on above: Performed By: #### H EMDF, ABG, BMP3 ####[address] [place] WBC (Bld) [#/Vol] 15.4 10*3/uL High 3.6-10.7 [facility] Comment on above: Performed By: #### H EMDF, ABG, BMP3 ####[address] Laboratory - Blood bankon ABO and Rh group Nom (Bld) [address] [facility] No Panel Informationon 12-22 Radiology Study observation (narrative) [facility] Work Phone: Dispense Status Blood Bank transfused [facility] Expiration Date [id number] [facility] Product Code Blood Bank [id number] [facility] Interpretation and review of laboratory results Abnormal [facility] Op Noteon 12-22-2020 Op Note Normal [facility] PREPARE RBC (CROSSMATCH)on 02-22-2020 Blood product unit ID (Dose) [#] [id number] [facility] Blood product unit ID (Dose) [#] [id number] [facility] Procalcitoninon 12-22-2020 Procalcitonin 0.29 ng/mL High 0.00-0.09 [facility] Comment on above: Performed By: #### P MICHELLE ####[address] Interpretation See Below Normal [facility] Work Phone: Comment on above: Result Comment: PCT <0.50 = Low risk of severe sepsis and/or septic shock.PCT >2.00 = High risk of severe sepsis and/or septic shock. Performed By: #### P MICHELLE ####[address] [place] [address] Interpretation and review of laboratory results Abnormal [facility] Work Phone: Procalcitonin 0.29 ng/mL High 0.00 - 0.09 ng/mL [facility] Work Phone: [facility] Work Phone: TS GELon 12-22-2020 TS GEL ABO Group: A Rh, Gel: POS Antibody Screen Gel: NEG Normal [facility] Comment on above: Performed By: #### T SGL ####[facility]#### LRC ####[address] [address] TYPE AND SCREENon 12-22-2020 ABO Grouping A [facility] Rh Type Positive [facility] XR PELVIS (MIN 3 VIEWS)on [facility] Work Phone: XR PELVIS (MIN 3 VIEWS)Order ed By: Cruz Velasquez on 12-22-2020 [facility] Work Phone: XR TIBIA FIBULA RIGHT (2 VIE WS)on 12-22-2020 [facility] Work Phone: [facility] Work Phone: hCG Qual Pregon 12-22-2020 hCG Qual Preg Negative Normal [facility] Comment on above: Result Comment: Refe rence Range: NEGATIVEEffective 04/30/2019, the reference interval for thequalitative test has been updated. This test detectshCG at concentrations of 10 mIU/L or greater in serum. Performed By: #### Q WAL2 ####[address] [place] [address] Arterial Blood Gaseson 12-21 CO2 [Moles/Vol] 20.9 mmol/L Low 23.0-27.0 [facility] Comment on above: Performed By: #### A BG, BMP3, HEMDF ####[address] [place], [place] HCO3 (Bld) [Moles/Vol] 19.9 mmol/L Low 21.0-25.0 [facility] Comment on above: Performed By: #### A BG, BMP3, HEMDF ####[address] [place] Hemoglobin (Bld) [Mass/Vol] 10.7 g/dL Normal ScreenOnly [facility] Comment on above: Performed By: #### A BG, BMP3, HEMDF ####[address] Oxygen (Bld) [Partial pressure] 94.9 mm[Hg] Normal 80.0-100.0 [facility] Comment on above: Performed By: #### A BG, BMP3, HEMDF ####[address] Oxygen saturation in Blood 97.4 % Normal 95.0-100.0 [facility] Comment on above: Performed By: #### A BG, BMP3, HEMDF ####[address] pCO2 34.1 mm[Hg] Low 35.0-45.0 [facility] Comment on above: Performed By: #### A BG, BMP3, HEMDF ####[address] pH 7.384 Normal 7.350-7.450 [facility] Comment on above: Performed By: #### A BG, BMP3, HEMDF ####[address] Std Base Excess -4.5 mmol/L Low -3.0-3.0 [facility] Comment on above: Performed By: #### A BG, BMP3, HEMDF ####[address] FIO2 No data Normal [facility] Comment on above: Performed By: #### A BG, BMP3, HEMDF ####[address] [address] BLOOD GAS, ARTERIALon 2020 Base Excess, Arterial -4.5 mmol/L Low -3.0 - 3.0 mmol/L [facility] CO2 [Moles/Vol] 20.9 mmol/L Low 23.0 - 27.0 mmol/L [facility] FIO2 Arterial No data [facility] HCO3 (Bld) [Moles/Vol] 19.9 mmol/L Low 21.0 - 25.0 mmol/L [facility] Hemoglobin (Bld) [Mass/Vol] 10.7 g/dL ScreenOnly [facility] Interpretation and review of laboratory results Abnormal [facility] Oxygen saturation in Blood 97.4 % 95.0 - 100.0 % [facility] pCO2, Arterial 34.1 mm[Hg] Low 35.0 - 45.0 mm[Hg] [facility] pH, Arterial 7.384 [facility] pO2, Arterial 94.9 mm[Hg] 80.0 - 100.0 mm[Hg] [facility] Basic Metabolic Panelon Anion gap [Moles/Vol] 1 mmol/L Low 3-13 [facility] Comment on above: Performed By: #### A BG, BMP3, HEMDF ####[facility] [place], [place] Calcium [Mass/Vol] 7.4 mg/dL Low 8.4-10.4 [facility] Comment on above: Performed By: #### A BG, BMP3, HEMDF ####[facility] [place], [place] CO2 [Moles/Vol] 20 mmol/L Low 22-30 [facility] Comment on above: Performed By: #### A BG, BMP3, HEMDF ####[facility] [employer] [id number] [place], [place] Glucose [Mass/Vol] 120 mg/dL High 70-100 [facility] Comment on above: Performed By: #### A BG, BMP3, HEMDF ####[address] [place], [place] Urea nitrogen [Mass/Vol] 17 mg/dL Normal 9-20 [facility] Comment on above: Performed By: #### A BG, BMP3, HEMDF ####[facility] [place], [place] Creatinine [Mass/Vol] 0.67 mg/dL Normal 0.52-1.25 [facility] Comment on above: Performed By: #### A BG, BMP3, HEMDF ####[address] [place], [place] eGFR OTHER > 90.0 Normal >60 [facility] Comment on above: Result Comment: KDIG O guidelines provide the following GFR categories:Stage GFR(ml/min/1.73 m2) TermsG1 >=90 Normal or highG2 60-89 Mildly decreased*G3a 45-59 Mildly to moderately [id number] 30-44 Moderately to severely decreasedG4 15-29 Severely [...] Performed By: #### A BG, BMP3, HEMDF ####[address] [place], [place] GFR/1.73 sq M.predicted among blacks MDRD (S/P/Bld) [Vol rate/Area] mL/min/{1.73_m2} Normal >60 [facility] Comment on above: Performed By: #### A BG, BMP3, HEMDF ####[facility] [employer] [id number] [place], [place] Chloride [Moles/Vol] 119 mmol/L High 98-107 [facility] Comment on above: Performed By: #### A BG, BMP3, HEMDF ####[facility] [employer] [id number] [place] Potassium [Moles/Vol] 3.6 mmol/L Normal 3.5-5.1 [facility] Comment on above: Performed By: #### A BG, BMP3, HEMDF ####[facility] [place], [place] Sodium [Moles/Vol] 141 mmol/L Normal 135-145 [facility] Comment on above: Performed By: #### A BG, BMP3, HEMDF ####[facility] [place], [place] Anion gap [Moles/Vol] 1 mmol/L Low 3 - 13 mmol/L [facility] Calcium [Mass/Vol] 7.4 mg/dL Low 8.4 - 10. 4 mg/dL [facility] Chloride [Moles/Vol] 119 mmol/L High 98 - 10 7 mmol/L [facility] CO2 [Moles/Vol] 20 mmol/L Low 22 - 30 mmol/L [facility] Creatinine [Mass/Vol] 0.67 mg/dL 0.52 - 1.25 mg/dL [facility] EGFR IF NonAfrican Berm[place]ian >90.0 >60 mL/min [facility] GFR/1.73 sq M.predicted among blacks MDRD (S/P/Bld) [Vol rate/Area] mL/min/{1.73_m2} >60 mL/min [facility] Glucose [Mass/Vol] 120 mg/dL High 70 - 100 mg/dL [facility] Interpretation and review of laboratory results Abnormal [facility] Potassium [Moles/Vol] 3.6 mmol/L 3.5 - 5.1 mmol/L [facility] Sodium [Moles/Vol] 141 mmol/L 135 - 145 mmol/L [facility] Urea nitrogen (BldV) [Mass/Vol] 17 mg/dL 9 - 20 mg/dL [facility] CBC Auto Differentialon 11-0 Absolute Baso # [...] 15.7 10*3/uL High 3.6 - 10.7 10*3/uL [facility] Absolute Baso # 0.1 [...] 17.6 10*3/uL High 3.6 - 10.7 10*3/uL [facility] CR Chest Portableon 12-22-19 CR [facility] Chest Portable Normal [facility] Hemogram w/ Autodiffon 12-21 Abs Baso Cnt 0.1 10*3/uL Normal 0.0-0.[address] [facility] Comment on above: Performed By: #### H EMDF ####[address] Abs Neutrophile Cnt 13.5 10*3/uL High 1.8-7.0 [facility] Comment on above: Performed By: #### H EMDF ####[address] Basophils/100 WBC (Bld) 0.4 % Normal 0.0-2.0 [facility] Comment on above: Performed By: #### H EMDF ####[address] Eosinophils (Bld) [#/Vol] 0.0 10*3/uL Normal 0.0-0.5 [facility] Comment on above: Performed By: #### H EMDF ####[address] Eosinophils/100 WBC (Bld) 0.0 % Low 1.0-6.0 [facility] Comment on above: Performed By: #### H EMDF ####[address] Erythrocyte distribution width (RBC) [Ratio] 14.4 % Normal 11.5-14.5 [facility] Comment on above: Performed By: #### H EMDF ####[address] Granulocytes/100 WBC (Bld) 86.2 % High 40.0-80.0 [facility] Comment on above: Performed By: #### H EMDF ####[address] Hematocrit (Bld) [Volume fraction] 25.7 % Low 35.0-47.0 [facility] Comment on above: Performed By: #### H EMDF ####[address] Hemoglobin (Bld) [Mass/Vol] 8.5 g/dL Low 11.7-16.0 [facility] Comment on above: Performed By: #### H EMDF ####[address] Lymphocytes (Bld) [#/Vol] 1.5 10*3/uL Normal 1.0-4.3 [facility] Comment on above: Performed By: #### H EMDF ####[address] Lymphocytes/100 WBC (Bld) 9.5 % Low 20.0-40.0 [facility] Comment on above: Performed By: #### H EMDF ####[address] MCH (RBC) [Entitic mass] 29.4 pg Normal 26.0-34.0 [facility] Comment on above: Performed By: #### H EMDF ####[address] [place], [place] MCHC 33.2 % Normal 32.0-36.0 [facility] Comment on above: Performed By: #### H EMDF ####[address] MCV (RBC) [Entitic vol] 88.6 fL Normal 79.0-98.0 [facility] Comment on above: Performed By: #### H EMDF ####[address] Monocytes (Bld) [#/Vol] 0.6 10*3/uL Normal 0.0-0.8 [facility] Comment on above: Performed By: #### H EMDF ####[address] Monocytes/100 WBC (Bld) 3.9 % Normal 2.0-10.0 [facility] Comment on above: Performed By: #### H EMDF ####[address] Platelet mean volume (Bld) [Entitic vol] 9.0 fL Normal 7.4-10.4 [facility] Comment on above: Performed By: #### H EMDF ####[address] Platelets (Bld) [#/Vol] 176 10*3/uL Normal 140-440 [facility] Comment on above: Performed By: #### H EMDF ####[address] RBC (Bld) [#/Vol] 2.90 10*6/uL Low 3.80-5.20 [facility] Comment on above: Performed By: #### H EMDF ####[address] WBC (Bld) [#/Vol] 15.7 10*3/uL High 3.6-10.7 [facility] Comment on above: Performed By: #### H EMDF ####[address] Abs Baso Cnt 0.1 10*3/uL Normal 0.0-0.2 [facility] Comment on above: Performed By: #### A BG, BMP3, HEMDF ####[address] Abs Neutrophile Cnt 14.8 10*3/uL High 1.8-7.0 [facility] Comment on above: Performed By: #### A BG, BMP3, HEMDF ####[address] [place], [place] Basophils/100 WBC (Bld) 0.4 % Normal 0.0-2.0 [facility] Comment on above: Performed By: #### A BG, BMP3, HEMDF ####[address] [place] Eosinophils (Bld) [#/Vol] 0.0 10*3/uL Normal 0.0-0.5 [facility] Comment on above: Performed By: #### A BG, BMP3, HEMDF ####[address] [place] Eosinophils/100 WBC (Bld) 0.1 % Low 1.0-6.0 [facility] Comment on above: Performed By: #### A BG, BMP3, HEMDF ####[address] [place] Erythrocyte distribution width (RBC) [Ratio] 15.0 % High 11.5-14.5 [facility] Comment on above: Performed By: #### A BG, BMP3, HEMDF ####[address] Granulocytes/100 WBC (Bld) 83.9 % High 40.0-80.0 [facility] Comment on above: Performed By: #### A BG, BMP3, HEMDF ####[address] Hematocrit (Bld) [Volume fraction] 29.7 % Low 35.0-47.0 [facility] Comment on above: Performed By: #### A BG, BMP3, HEMDF ####[address] Hemoglobin (Bld) [Mass/Vol] 10.1 g/dL Low 11.7-16.0 [facility] Comment on above: Performed By: #### A BG, BMP3, HEMDF ####[address] Lymphocytes (Bld) [#/Vol] 2.1 10*3/uL Normal 1.0-4.3 [facility] Comment on above: Performed By: #### A BG, BMP3, HEMDF ####[address] Lymphocytes/100 WBC (Bld) 12.0 % Low 20.0-40.0 [facility] Comment on above: Performed By: #### A BG BMP3, HEMDF ####[address] [place] MCH (RBC) [Entitic mass] 30.0 pg Normal 26.0-34.0 [facility] Comment on above: Performed By: #### A BG BMP3, HEMDF ####[address] MCHC 33.9 % Normal 32.0-36.0 [facility] Comment on above: Performed By: #### A BG BMP3, HEMDF ####[address] MCV (RBC) [Entitic vol] 88.4 fL Normal 79.0-98.0 [facility] Comment on above: Performed By: #### A BG BMP3, HEMDF ####[address] Monocytes (Bld) [#/Vol] 0.6 10*3/uL Normal 0.0-0.8 [facility] Comment on above: Performed By: #### A BG, BMP3, HEMDF ####[address] Monocytes/100 WBC (Bld) 3.6 % Normal 2.0-10.0 [facility] Comment on above: Performed By: #### A BG, BMP3, HEMDF ####[address] Platelet mean volume (Bld) [Entitic vol] 9.3 fL Normal 7.4-10.4 [facility] Comment on above: Performed By: #### A BG, BMP3, HEMDF ####[address] Platelets (Bld) [#/Vol] 166 10*3/uL Normal 140-440 [facility] Comment on above: Performed By: #### A BG, BMP3, HEMDF ####[address] [place] [address] RBC (Bld) [#/Vol] 3.36 10*6/uL Low 3.80-5.20 [facility] Comment on above: Performed By: #### A BG, BMP3, HEMDF ####[address] [place] [address] WBC (Bld) [#/Vol] 17.6 10*3/uL High 3.6-10.7 [facility] Comment on above: Performed By: #### A BG, BMP3, HEMDF ####[address] [place] [address] Laboratory - Blood bankon ABO and Rh group Nom (Bld) [address] [facility] Leukodepleted Red Cellson Leukodepleted Red Cells Normal [facility] Comment on above: Performed By: #### P RP, LRC, SDP, CR5 ####[address] [address]#### TSGL ####[facility] No Panel Informationon 12-21 Radiology Study observation (narrative) [facility] Work Phone: Dispense Status Blood Bank released [facility] Expiration Date [facility] Product Code Blood Bank [id number] [facility] PREPARE RBC (CROSSMATCH), 1 Unitson 12-21-2020 Blood product unit ID (Dose) [#] [id number] [facility] PREPARE RBC (CROSSMATCH), 2 Unitson 12-21-2020 Blood product unit ID (Dose) [#] [id number] [facility] Blood product unit ID (Dose) [#] [id number] [facility] Dispense Status Blood Bank transfused [facility] XR CHEST PORTABLEon 12-22-19 21 [facility] Work Phone: [facility] Work Phone: [facility] Work Phone: [facility] Work Phone: Arterial Blood Gaseson 12-20 CO2 [Moles/Vol] 19.9 mmol/L Low 23.0-27.0 [facility] Comment on above: Performed By: #### A BG ####[address] [place], [place] HCO3 (Bld) [Moles/Vol] 18.8 mmol/L Low 21.0-25.0 [facility] Comment on above: Performed By: #### A BG ####[address] [place], [place] Hemoglobin (Bld) [Mass/Vol] 7.7 g/dL Normal ScreenOnly [facility] Comment on above: Performed By: #### A BG ####[address] [place], [place] Oxygen (Bld) [Partial pressure] 104.5 mm[Hg] High 80.0-100.0 [facility] Comment on above: Performed By: #### A BG ####[address] [address] [place], [place] Oxygen saturation in Blood 97.6 % Normal 95.0-100.0 [facility] Comment on above: Performed By: #### A BG ####[address] [place], [place] pCO2 35.4 mm[Hg] Normal 35.0-45.0 [facility] Comment on above: Performed By: #### A BG ####[address] [address] [place], [place] pH 7.344 Low 7.350-7.450 [facility] Comment on above: Performed By: #### A BG ####[address] [place], [place] Std Base Excess -6.3 mmol/L Low -3.0-3.0 [facility] Comment on above: Performed By: #### A BG ####[address] [place], [place] FIO2 No data Normal [facility] Comment on above: Performed By: #### A BG ####[address] [place] CO2 [Moles/Vol] 21.9 mmol/L Low 23.0-27.0 [facility] Comment on above: Performed By: #### A BG, HEMDF, BMP3 ####[address] [place] HCO3 (Bld) [Moles/Vol] 20.9 mmol/L Low 21.0-25.0 [facility] Comment on above: Performed By: #### A BG, HEMDF, BMP3 ####[address] Hemoglobin (Bld) [Mass/Vol] 7.5 g/dL Normal ScreenOnly [facility] Comment on above: Performed By: #### A BG, HEMDF, BMP3 ####[address] Oxygen (Bld) [Partial pressure] 88.0 mm[Hg] Normal 80.0-100.0 [facility] Comment on above: Performed By: #### A BG, HEMDF, BMP3 ####[address] Oxygen saturation in Blood 96.6 % Normal 95.0-100.0 [facility] Comment on above: Performed By: #### A BG, HEMDF, BMP3 ####[address] [place] pCO2 30.2 mm[Hg] Low 35.0-45.0 [facility] Comment on above: Performed By: #### A BG, HEMDF, BMP3 ####[address] pH 7.459 High 7.350-7.450 [facility] Comment on above: Performed By: #### A BG, HEMDF, BMP3 ####[address] [address] Std Base Excess -2.5 mmol/L Normal -3.0-3.0 [facility] Comment on above: Performed By: #### A AUGUSTINE CALL BMP3 ####[facility] [place] [address] FIO2 No data Normal [facility] Comment on above: Performed By: #### A AUGUSTINE CALL BMP3 ####[facility] [place] [address] BLOOD GAS, ARTERIALon 2020 Base Excess, Arterial -6.3 mmol/L Low -3.0 - 3.0 mmol/L [facility] CO2 [Moles/Vol] 19.9 mmol/L Low 23.0 - 27.0 mmol/L [facility] FIO2 Arterial No data [facility] HCO3 (Bld) [Moles/Vol] 18.8 mmol/L Low 21.0 - 25.0 mmol/L [facility] Hemoglobin (Bld) [Mass/Vol] 7.7 g/dL ScreenOnly [facility] Interpretation and review of laboratory results Abnormal [facility] Oxygen saturation in Blood 97.6 % 95.0 - 100.0 % [facility] pCO2, Arterial 35.4 mm[Hg] 35.0 - 45.0 mm[Hg] [facility] pH, Arterial 7.344 Low [facility] pO2, Arterial 104.5 mm[Hg] High 80.0 - 100.0 mm[Hg] [facility] Base Excess, Arterial -2.5 mmol/L -3.0 - 3.0 mmol/L [facility] CO2 [Moles/Vol] 21.9 mmol/L Low 23.0 - 27.0 mmol/L [facility] FIO2 Arterial No data [facility] HCO3 (Bld) [Moles/Vol] 20.9 mmol/L Low 21.0 - 25.0 mmol/L [facility] Hemoglobin (Bld) [Mass/Vol] 7.5 g/dL ScreenOnly [facility] Interpretation and review of laboratory results Abnormal [facility] Oxygen saturation in Blood 96.6 % 95.0 - 100.0 % [facility] pCO2, Arterial 30.2 mm[Hg] Low 35.0 - 45.0 mm[Hg] [facility] pH, Arterial 7.[address] [facility] pO2, Arterial 88.0 mm[Hg] 80.0 - 100.0 mm[Hg] [facility] Basic Metabolic Panelon 11-0 -2020 Anion gap [Moles/Vol] 2 mmol/L Low 3-13 [facility] Comment on above: Performed By: #### A BG, HEMDF, BMP3 ####[facility] [employer] [id number] [place] Calcium [Mass/Vol] 7.8 mg/dL Low 8.4-10.4 [facility] Comment on above: Performed By: #### A BG, HEMDF, BMP3 ####[facility] [employer] [id number] [place] CO2 [Moles/Vol] 21 mmol/L Low 22-30 [facility] Comment on above: Performed By: #### A BG, HEMDF, BMP3 ####[facility] [employer] [id number] [place] [id number] Glucose [Mass/Vol] 138 mg/dL High 70-100 [facility] Comment on above: Performed By: #### A BG, HEMDF, BMP3 ####[facility] [employer] [place] [address] Urea nitrogen [Mass/Vol] 22 mg/dL High 9-20 [facility] Comment on above: Performed By: #### A BG, HEMDF, BMP3 ####[facility] [employer] [id number], [place] Creatinine [Mass/Vol] 1.01 mg/dL Normal 0.52-1.25 [facility] Comment on above: Performed By: #### A BG, HEMDF, BMP3 ####[facility] [employer] [id number], [place] GFR/1.73 sq M.predicted among blacks MDRD (S/P/Bld) [Vol rate/Area] 75.8 mL/min/{1.73_m2} Normal >60 [facility] Comment on above: Performed By: #### A BG, HEMDF, BMP3 ####[address] [place], [place] GFR/1.73 sq M.predicted among non-blacks MDRD (S/P/Bld) [Vol rate/Area] 65.4 mL/min/{1.73_m2} Normal >60 [facility] Comment on above: Result Comment: KDIG O guidelines provide the following GFR categories:Stage GFR(ml/min/1.73 m2) TermsG1 >=90 Normal or highG2 60-89 Mildly decreased*G3a 45-59 Mildly to moderately yrviquubcD4x 30-44 Moderately to severely decreasedG4 15-29 Severely [...] Performed By: #### A BG, HEMDF, BMP3 ####[address] [place], [place] Potassium [Moles/Vol] 3.9 mmol/L Normal 3.5-5.1 [facility] Comment on above: Performed By: #### A BG, HEMDF, BMP3 ####[address] [place], [place] Chloride [Moles/Vol] 115 mmol/L High 98-107 [facility] Comment on above: Performed By: #### A BG, HEMDF, BMP3 ####[address] [place], [place] Sodium [Moles/Vol] 139 mmol/L Normal 135-145 [facility] Comment on above: Performed By: #### A BG, HEMDF, BMP3 ####[address] [place], [place] Anion gap [Moles/Vol] 2 mmol/L Low 3 - 13 mmol/L [facility] Calcium [Mass/Vol] 7.8 mg/dL Low 8.4 - 10. 4 mg/dL [facility] Chloride [Moles/Vol] 115 mmol/L High 98 - 10 7 mmol/L [facility] CO2 [Moles/Vol] 21 mmol/L Low 22 - 30 mmol/L [facility] Creatinine [Mass/Vol] 1.01 mg/dL 0.52 - 1.25 mg/dL [facility] EGFR IF NonAfrican [place]ian 65.4 mL/min >60 [facility] GFR/1.73 sq M.predicted among blacks MDRD (S/P/Bld) [Vol rate/Area] 75.8 mL/min/{1.73_m2} >60 [facility] Glucose [Mass/Vol] 138 mg/dL High 70 - 100 mg/dL [facility] Interpretation and review of laboratory results Abnormal [facility] Potassium [Moles/Vol] 3.9 mmol/L 3.5 - 5.1 mmol/L [facility] Sodium [Moles/Vol] 139 mmol/L 135 - 145 mmol/L [facility] Urea nitrogen (BldV) [Mass/Vol] 22 mg/dL High 9 - 20 mg/dL [facility] CBC Auto Differentialon 11-0 Absolute Baso # [...] g/dL Critically low 11.7 - 16.0 g/dL [facility] Interpretation and review of laboratory results Abnormal [...] 16.6 10*3/uL High 3.6 - 10.7 10*3/uL [facility] CBC auto differentialon 11-0 Absolute [...] 7.3 g/dL Low 11.7 - 16.0 g/dL [facility] Interpretation and review of laboratory results Abnormal [...] 19.3 10*3/uL High 3.6 - 10.7 10*3/uL [facility] CR Chest Portableon 12-21-19 21 CR Chest Portable Normal [facility] CR Forearm 2 Views Lefton CR Forearm 2 Views Left Normal [facility] CT Up Ext w/o Contrast Lefto n 12-20-2020 CT Up Ext w/o Contrast Left Normal [facility] Calcium, Ionizedon Interpretation and review of laboratory results Abnormal [facility] Ionized Ca 4.10 mg/dL Low 4.30 - 5.20 mg/dL [facility] pH (Bld) 7.44 [pH] [facility] Calcium,Ionizedon 12-20-2020 Ionized Ca,Measured 4.10 mg/dL Low 4.30-5.20 [facility] Comment on above: Performed By: #### I CA ####[address] pH, Ionized Calcium 7.44 Normal 7.31-7.46 [facility] Comment on above: Performed By: #### I CA ####[address] Hemoglobin AND Hematocriton 12-20-2020 Hematocrit (Bld) [Volume fraction] 19.4 % Low 35.0-47.0 [facility] Comment on above: Performed By: #### H GHCT, HEMDF ####[address] Hemoglobin (Bld) [Mass/Vol] 6.6 g/dL Critically low 11.7-16.0 [facility] Comment on above: Result Comment: REPE ATED Performed By: #### H GHCT, HEMDF ####[address] Hemogram w/ Autodiffon 12-20 Abs Baso Cnt 0.0 10*3/uL Normal 0.0-0.2 [facility] Comment on above: Performed By: #### H GHCT, HEMDF ####[address] [place], [place] Abs Neutrophile Cnt 14.4 10*3/uL High 1.8-7.0 [facility] Comment on above: Performed By: #### H GHCT, HEMDF ####[address] Basophils/100 WBC (Bld) 0.1 % Normal 0.0-2.0 [facility] Comment on above: Performed By: #### H GHCT, HEMDF ####[address] [place] Eosinophils (Bld) [#/Vol] 0.0 10*3/uL Normal 0.0-0.5 [facility] Comment on above: Performed By: #### H GHCT, HEMDF ####[address] [place], [place] Eosinophils/100 WBC (Bld) 0.0 % Low 1.0-6.0 [facility] Comment on above: Performed By: #### H GHCT, HEMDF ####[address] Erythrocyte distribution width (RBC) [Ratio] 15.4 % High 11.5-14.5 [facility] Comment on above: Performed By: #### H GHCT, HEMDF ####[address] Granulocytes/100 WBC (Bld) 86.8 % High 40.0-80.0 [facility] Comment on above: Performed By: #### H GHCT, HEMDF ####[address] Lymphocytes (Bld) [#/Vol] 1.6 10*3/uL Normal 1.0-4.3 [facility] Comment on above: Performed By: #### H GHCT, HEMDF ####[address] Lymphocytes/100 WBC (Bld) 9.4 % Low 20.0-40.0 [facility] Comment on above: Performed By: #### H GHCT, HEMDF ####[address] MCH (RBC) [Entitic mass] 30.1 pg Normal 26.0-34.0 [facility] Comment on above: Performed By: #### H GHCT, HEMDF ####[address] MCHC 33.6 % Normal 32.0-36.0 [facility] Comment on above: Performed By: #### H GHCT, HEMDF ####[address] [place], [place] MCV (RBC) [Entitic vol] 89.5 fL Normal 79.0-98.0 [facility] Comment on above: Performed By: #### H GHCT, HEMDF ####[address] [place] Monocytes (Bld) [#/Vol] 0.6 10*3/uL Normal 0.0-0.8 [facility] Comment on above: Performed By: #### H GHCT, HEMDF ####[address] [place], [place] Monocytes/100 WBC (Bld) 3.7 % Normal 2.0-10.0 [facility] Comment on above: Performed By: #### H GHCT, HEMDF ####[address] [place], [place] Platelet mean volume (Bld) [Entitic vol] 9.7 fL Normal 7.4-10.4 [facility] Comment on above: Performed By: #### H GHCT, HEMDF ####[address] [place] Platelets (Bld) [#/Vol] 143 10*3/uL Normal 140-440 [facility] Comment on above: Performed By: #### H GHCT, HEMDF ####[address] [place] RBC (Bld) [#/Vol] 2.17 10*6/uL Low 3.80-5.20 [facility] Comment on above: Performed By: #### H GHCT, HEMDF ####[address] [place] WBC (Bld) [#/Vol] 16.6 10*3/uL High 3.6-10.7 [facility] Comment on above: Performed By: #### H GHCT, HEMDF ####[address] [place] Abs Baso Cnt 0.0 10*3/uL Normal 0.0-0.2 [facility] Comment on above: Performed By: #### A BG HEMDF, BMP3 ####[address] [place] Abs Neutrophile Cnt 16.0 10*3/uL High 1.8-7.0 [facility] Comment on above: Performed By: #### A BG HEMDF, BMP3 ####[address] Basophils/100 WBC (Bld) 0.1 % Normal 0.0-2.0 [facility] Comment on above: Performed By: #### A BG HEMDF, BMP3 ####[address] Eosinophils (Bld) [#/Vol] 0.0 10*3/uL Normal 0.0-0.5 [facility] Comment on above: Performed By: #### A BG, HEMDF, BMP3 ####[address] Eosinophils/100 WBC (Bld) 0.0 % Low 1.0-6.0 [facility] Comment on above: Performed By: #### A BG, HEMDF, BMP3 ####[address] Erythrocyte distribution width (RBC) [Ratio] 14.8 % High 11.5-14.5 [facility] Comment on above: Performed By: #### A BG, HEMDF, BMP3 ####[address] Granulocytes/100 WBC (Bld) 82.9 % High 40.0-80.0 [facility] Comment on above: Performed By: #### A BG, HEMDF, BMP3 ####[address] Hematocrit (Bld) [Volume fraction] 21.0 % Low 35.0-47.0 [facility] Comment on above: Performed By: #### A BG HEMDF, BMP3 ####[address] Hemoglobin (Bld) [Mass/Vol] 7.3 g/dL Low 11.7-16.0 [facility] Comment on above: Performed By: #### A BG HEMDF, BMP3 ####[address] Lymphocytes (Bld) [#/Vol] 2.3 10*3/uL Normal 1.0-4.3 [facility] Comment on above: Performed By: #### A BG HEMDF, BMP3 ####[address] Lymphocytes/100 WBC (Bld) 11.9 % Low 20.0-40.0 [facility] Comment on above: Performed By: #### A BG HEMDF, BMP3 ####[address] MCH (RBC) [Entitic mass] 29.6 pg Normal 26.0-34.0 [facility] Comment on above: Performed By: #### A BG HEMDF, BMP3 ####[address] MCHC 34.6 % Normal 32.0-36.0 [facility] Comment on above: Performed By: #### A BG HEMDF, BMP3 ####[address] MCV (RBC) [Entitic vol] 85.5 fL Normal 79.0-98.0 [facility] Comment on above: Performed By: #### A BG HEMDF, BMP3 ####[address] Monocytes (Bld) [#/Vol] 1.0 10*3/uL High 0.0-0.8 [facility] Comment on above: Performed By: #### A BG HEMDF, BMP3 ####[address], [place] Monocytes/100 WBC (Bld) 5.1 % Normal 2.0-10.0 [facility] Comment on above: Performed By: #### A BG HEMDF, BMP3 ####[address] [place], [place] Platelet mean volume (Bld) [Entitic vol] 10.0 fL Normal 7.4-10.4 [facility] Comment on above: Performed By: #### A BG, HEMDF, BMP3 ####[address] Platelets (Bld) [#/Vol] 178 10*3/uL Normal 140-440 [facility] Comment on above: Performed By: #### A BG, HEMDF, BMP3 ####[address] RBC (Bld) [#/Vol] 2.45 10*6/uL Low 3.80-5.20 [facility] Comment on above: Performed By: #### A BG, HEMDF, BMP3 ####[address] WBC (Bld) [#/Vol] 19.3 10*3/uL High 3.6-10.7 [facility] Comment on above: Performed By: #### A BG, HEMDF, BMP3 ####[address] Abs Baso Cnt 0.0 10*3/uL Normal 0.0-0.2 [facility] Comment on above: Performed By: #### H EMDF ####[address] Abs Neutrophile Cnt 18.3 10*3/uL High 1.8-7.0 [facility] Comment on above: Performed By: #### H EMDF ####[address] Basophils/100 WBC (Bld) 0.1 % Normal 0.0-2.0 [facility] Comment on above: Performed By: #### H EMDF ####[address] [place], [place] Eosinophils (Bld) [#/Vol] 0.0 10*3/uL Normal 0.0-0.5 [facility] Comment on above: Performed By: #### H EMDF ####[address] Eosinophils/100 WBC (Bld) 0.0 % Low 1.0-6.0 [facility] Comment on above: Performed By: #### H EMDF ####[address] Erythrocyte distribution width (RBC) [Ratio] 14.6 % High 11.5-14.5 [facility] Comment on above: Performed By: #### H EMDF ####[address] Granulocytes/100 WBC (Bld) 87.1 % High 40.0-80.0 [facility] Comment on above: Performed By: #### H EMDF ####[address] Hematocrit (Bld) [Volume fraction] 23.5 % Low 35.0-47.0 [facility] Comment on above: Performed By: #### H EMDF ####[address] Hemoglobin (Bld) [Mass/Vol] 8.0 g/dL Low 11.7-16.0 [facility] Comment on above: Performed By: #### H EMDF ####[address] Lymphocytes (Bld) [#/Vol] 1.7 10*3/uL Normal 1.0-4.3 [facility] Comment on above: Performed By: #### H EMDF ####[address] Lymphocytes/100 WBC (Bld) 8.3 % Low 20.0-40.0 [facility] Comment on above: Performed By: #### H EMDF ####[address] [place], [place] MCH (RBC) [Entitic mass] 29.6 pg Normal 26.0-34.0 [facility] Comment on above: Performed By: #### H EMDF ####[address] [place] MCHC 34.2 % Normal 32.0-36.0 [facility] Comment on above: Performed By: #### H EMDF ####[address] MCV (RBC) [Entitic vol] 86.5 fL Normal 79.0-98.0 [facility] Comment on above: Performed By: #### H EMDF ####[address] Monocytes (Bld) [#/Vol] 1.0 10*3/uL High 0.0-0.8 [facility] Comment on above: Performed By: #### H EMDF ####[address] [place], [place] Monocytes/100 WBC (Bld) 4.5 % Normal 2.0-10.0 [facility] Comment on above: Performed By: #### H EMDF ####[address] [place] Platelet mean volume (Bld) [Entitic vol] 10.1 fL Normal 7.4-10.4 [facility] Comment on above: Performed By: #### H EMDF ####[address] [place], [place] Platelets (Bld) [#/Vol] 168 10*3/uL Normal 140-440 [facility] Comment on above: Performed By: #### H EMDF ####[address] RBC (Bld) [#/Vol] 2.71 10*6/uL Low 3.80-5.20 [facility] Comment on above: Performed By: #### H EMDF ####[address] WBC (Bld) [#/Vol] 21.1 10*3/uL High 3.6-10.7 [facility] Comment on above: Performed By: #### H EMDF ####[address] Laboratory - Blood bankon ABO and Rh group Nom (Bld) [address] [facility] ABO and Rh group Nom (Bld) [address] [facility] Blood product unit ID (Dose) [#] [id number] [facility] Leukodepleted Red Cellson Leukodepleted Red Cells Normal [facility] Comment on above: Performed By: #### P RP, LRC, SDP, CR5 ####[address] [address]#### TSGL ####[facility] No Panel Informationon 12-20 Dispense Status Blood Bank transfused [facility] Expiration Date [facility] Product Code Blood Bank [id number] [facility] Radiology Study observation (narrative) [facility] Work Phone: Dispense Status Blood Bank released [facility] Expiration Date [facility] Product Code Blood Bank [id number] [facility] Op Noteon 12-20-2020 Op Note Normal [facility] PATHOGEN REDUCED LR PPHRon 1 02-20-2020 PATHOGEN REDUCED LR PPHR Normal [facility] Comment on above: Performed By: #### P RP, LRC, SDP, CR5 ####[address] [address]#### TSGL ####[facility] PLASMA STATUSon 12-20-2020 BLOOD PRODUCT CODE [id number] Normal [facility] Comment on above: Performed By: #### F FU #### [facility] [address] [place] [address], [id number] BLOOD PRODUCT DESCRIPTION FFP Normal [facility] Comment on above: Performed By: #### F FU #### S [facility] LAB[facility] [address] [place], [place], BLOOD PRODUCT UNIT INFO [id number] Normal The [facility] Comment on above: Performed By: #### F FU #### S [facility] LAB[facility]AT[facility] [address] [place], [place], BLOOD PRODUCT UNIT TYPE 6200 Normal The [facility] Comment on above: Result Comment: A Po s Performed By: #### F FU #### S [facility] [address] [place], [place], PREPARE PLATELETS, 1 Product on 12-20-2020 [facility] PREPARE RBC (CROSSMATCH), 2 Unitson 12-20-2020 Blood product unit ID (Dose) [#] [id number] [facility] Blood product unit ID (Dose) [#] [id number] [facility] Procalcitoninon 12-20-2020 Procalcitonin 1.08 ng/mL High 0.00-0.[address] [facility] Comment on above: Performed By: #### P MICHELLE ####[facility] [employer] [id number] [place] [address] Interpretation See Below [facility] Work Phone: Interpretation and review of laboratory results Abnormal [facility] Work Phone: Procalcitonin 1.08 ng/mL High 0.00 - 0.09 ng/mL [facility] Work Phone: [facility] Work Phone: Interpretation See Below Normal [facility] Comment on above: Result Comment: PCT <0.50 = Low risk of severe sepsis and/or septic shock.PCT >2.00 = High risk of severe sepsis and/or septic shock. Performed By: #### P MICHELLE ####[address] [place] [address] RED BLOOD CELL COMPONENTon 1 02-20-2020 BB ORDER ITEM Product status info to follow [facility] Comment on above: Performed By: #### R REYNALDO #### [facility] [address] [place] [address], Performed By: #### F FO #### S [facility] [address] [place] [address], RED BLOOD CELL UNIT STATUSon 12-20-2020 BLOOD PRODUCT CODE [id number] Normal [facility] Comment on above: Performed By: #### R BU #### S [facility] [address] [place] [address], BLOOD PRODUCT DESCRIPTION Red Blood Cells Normal [facility] Comment on above: Performed By: #### R BU #### S [facility] [address] [place] [address], BLOOD PRODUCT STATUS Transfused Normal [facility] Comment on above: Performed By: #### R BU #### S [facility] [address] [place] [address], Performed By: #### F FU #### S [facility] [address] [place] [address], BLOOD PRODUCT UNIT INFO [id number] Normal [facility] Comment on above: Performed By: #### R BU #### S [facility] [address] [place] [address], BLOOD PRODUCT UNIT INFO [id number] Normal [facility] Comment on above: Performed By: #### R BU #### S [facility] [address] [place] [address], BLOOD PRODUCT UNIT TYPE 9500 Normal [facility] Comment on above: Result Comment: O Ne g Performed By: #### R BU #### S [facility] [address] [place] [address], CROSSMATCH INTERPRETATION Compatible (IS) Normal [facility] Comment on above: Result Comment: PERF ORMED BY NINA. Emergency Transfusion - Transfused Uncrossmatched Performed By: #### R BU #### [facility] [address] [place] [address], Single Donor Plasma (CP2D)on 12-20-2020 Single Donor Plasma (CP2D) Normal [facility] Comment on above: Performed By: #### P RP, LRC, SDP, CR5 ####[address] [address]#### TSGL ####[facility] Surgical Pathologyon 021 Surgical Pathology Report SEE BELOW [facility] XR CHEST PORTABLEon 12-21-19 21 [facility] Work Phone: [facility] Work Phone: XR RADIUS ULNA LEFT (2 VIEWS )on 12-20-2020 [facility] Work Phone: XR RADIUS ULNA LEFT (2 VIEWS )Ordered By: Jerome Denson on 12-20-2020 [facility] Work Phone: Arterial Blood Gaseson 12-19 CO2 [Moles/Vol] 21.5 mmol/L Low 23.0-27.0 [facility] Comment on above: Performed By: #### A BG ####[address] [address] HCO3 (Bld) [Moles/Vol] 20.5 mmol/L Low 21.0-25.0 [facility] Comment on above: Performed By: #### A BG ####[address] [address] Hemoglobin (Bld) [Mass/Vol] 10.6 g/dL Normal ScreenOnly [facility] Comment on above: Performed By: #### A BG ####[address] [address] Oxygen (Bld) [Partial pressure] 172.1 mm[Hg] High 80.0-100.0 [facility] Comment on above: Performed By: #### A BG ####[address] [address] Oxygen saturation in Blood 98.9 % Normal 95.0-100.0 [facility] Comment on above: Performed By: #### A BG ####[address] pCO2 34.3 mm[Hg] Low 35.0-45.0 [facility] Comment on above: Performed By: #### A BG ####[address] [place], [place] pH 7.394 Normal 7.350-7.450 [facility] Comment on above: Performed By: #### A BG ####[address] [place] Std Base Excess -3.8 mmol/L Low -3.0-3.0 [facility] Comment on above: Performed By: #### A BG ####[address] [place] FIO2 No data Normal [facility] Comment on above: Performed By: #### A BG ####[address] CO2 [Moles/Vol] 25.2 mmol/L Normal 23.0-27.0 [facility] Comment on above: Performed By: #### A BG, HGHCT, LACT3 ####[address] [place] HCO3 (Bld) [Moles/Vol] 23.9 mmol/L Normal 21.0-25.0 [facility] Comment on above: Performed By: #### A BG, HGHCT, LACT3 ####[address] [address] [place], [place] Hemoglobin (Bld) [Mass/Vol] 5.5 g/dL Critically low ScreenOnly [facility] Comment on above: Performed By: #### A BG, HGHCT, LACT3 ####[address] [place] Oxygen (Bld) [Partial pressure] 170.9 mm[Hg] High 80.0-100.0 [facility] Comment on above: Performed By: #### A BG, HGHCT, LACT3 ####[address] [place] Oxygen saturation in Blood 98.8 % Normal 95.0-100.0 [facility] Comment on above: Performed By: #### A BG, HGHCT, LACT3 ####[address] [place] pCO2 41.4 mm[Hg] Normal 35.0-45.0 [facility] Comment on above: Performed By: #### A BG, HGHCT, LACT3 ####[address] pH 7.380 Normal 7.350-7.450 [facility] Comment on above: Performed By: #### A BG, HGHCT, LACT3 ####[address] Std Base Excess -1.1 mmol/L Normal -3.0-3.0 [facility] Comment on above: Performed By: #### A BG, HGHCT, LACT3 ####[address] FIO2 0.5 Normal [facility] Comment on above: Performed By: #### A BG, HGHCT, LACT3 ####[address] Basic Metabolic Panelon 11-0 Calcium [Mass/Vol] 8.7 mg/dL Normal 8.4-10.4 [facility] Comment on above: Performed By: #### M G3, PHOS3, BMP3 ####[address] Anion gap [Moles/Vol] 5 mmol/L Normal 3-13 [facility] Comment on above: Performed By: #### M G3, PHOS3, BMP3 ####[address] CO2 [Moles/Vol] 20 mmol/L Low 22-30 [facility] Comment on above: Performed By: #### M G3, PHOS3, BMP3 ####[address] [place], [place] Creatinine [Mass/Vol] 0.90 mg/dL Normal 0.52-1.25 [facility] Comment on above: Performed By: #### M G3 PHOS3, BMP3 ####[facility] [place], [place] GFR/1.73 sq M.predicted among blacks MDRD (S/P/Bld) [Vol rate/Area] 87.1 mL/min/{1.73_m2} Normal >60 [facility] Comment on above: Performed By: #### M G3, PHOS3, BMP3 ####[facility] [employer] [id number] [place], [place] GFR/1.73 sq M.predicted among non-blacks MDRD (S/P/Bld) [Vol rate/Area] 75.2 mL/min/{1.73_m2} Normal >60 [facility] Comment on above: Result Comment: KDIG O guidelines provide the following GFR categories:Stage GFR(ml/min/1.73 m2) TermsG1 >=90 Normal or highG2 60-89 Mildly decreased*G3a 45-59 Mildly to moderately [id number] 30-44 Moderately to severely decreasedG4 15-29 Severely [...] Performed By: #### M G3, PHOS3, BMP3 ####[facility] [employer] [id number] [place], [place] Glucose [Mass/Vol] 160 mg/dL High 70-100 [facility] Comment on above: Performed By: #### M G3, PHOS3, BMP3 ####[facility] [employer] [id number] [place], [place] Urea nitrogen [Mass/Vol] 17 mg/dL Normal 9-20 [facility] Comment on above: Performed By: #### M Wu PHOS3, BMP3 ####[facility] [place], [place] Chloride [Moles/Vol] 114 mmol/L High 98-107 [facility] Comment on above: Performed By: #### M G3, PHOS3, BMP3 ####[address] [place], [place] Potassium [Moles/Vol] 4.9 mmol/L Normal 3.5-5.1 [facility] Comment on above: Performed By: #### Ward Washburn, PHOS3, BMP3 ####[address] [place] Sodium [Moles/Vol] 138 mmol/L Normal 135-145 [facility] Comment on above: Performed By: #### Ward Washburn, PHOS3, BMP3 ####[address] [place], [place] CBC auto differentialon 11-0 Absolute Baso [...] 8.0 g/dL Low 11.7 - 16.0 g/dL [facility] Interpretation and review of laboratory results Abnormal [...] 21.1 10*3/uL High 3.6 - 10.7 10*3/uL [facility] Hematocrit (Bld) [Volume fraction] 25.6 % Low 35.0 - 47.0 % [facility] Hemoglobin.gastrointe stinal spec 1 Ql (Stl) 8.6 g/dL Low 11.7 - 16.0 g/dL [facility] Interpretation and review of laboratory results Abnormal [...] 24.8 10*3/uL High 3.6 - 10.7 10*3/uL [facility] Absolute Baso # 0.1 10*3/uL [...] 23.4 10*3/uL High 3.6 - 10.7 10*3/uL [facility] CR Chest Portableon 12-20-19 [facility] Chest Portable Normal [facility] CR Pelvis 1 or 2 Viewson CR Pelvis 1 or 2 Views Normal [facility] CR Shoulder 2+ Views Lefton 12-19-2020 CR Shoulder 2+ Views Left Normal [facility] CR Tibia/Fibula 2 Views Rig ton 12-19-2020 CR Tibia/Fibula 2 Views Right Normal [facility] CR Wrist 2 Views Lefton CR Wrist 2 Views Left Normal [facility] CT Head or Brain w/o Contras ton 12-19-2020 CT Head or Brain w/o Contrast Normal [facility] CT LOWER EXTREMITY LEFT WO C ONTRASTon 12-19-2020 [facility] RAD [facility] Work Phone: [facility] Work Phone: CT LOWER EXTREMITY RIGHT WO CONTRASTon 12-19-2020 [facility] RAD CT Low Ext w/o Contrast Left on 12-19-2020 CT Low Ext w/o Contrast Left Normal [facility] CT Low Ext w/o Contrast Righ ton 12-19-2020 CT Low Ext w/o Contrast Right Normal [facility] CT Maxillofacial w/o Contras ton 12-19-2020 CT Maxillofacial w/o Contrast Normal [facility] CT PELVIS WO CONTRAST Additi onal Contrast? Noneon 12-19-2020 [facility] Work Phone: CT PELVIS WO CONTRAST Additi onal Contrast? NoneOrdered By: Praveen Vidal on 12-19-2020 [facility] Work Phone: CT Pelvis w/o Contrast (PO O nly)on 12-19-2020 CT Pelvis w/o Contrast (PO Only) Normal [facility] CT Sinus WO Contraston 12-19 [facility] Phone: [facility] Work Phone: CT UPPER EXTREMITY LEFT WO C ONTRASTon 12-19-2020 [facility] Work Phone: CT UPPER EXTREMITY LEFT WO C ONTRASTOrdered By: Jasper Falcon on 12-19-2020 [facility] Work Phone: Drugs of Abuseon 12-19-2020 Methadone, Ur Positive Normal [facility] Comment on above: Performed By: #### D RGA4 ####[facility] [employer] [id number] [employer]. [place], [place] Phencyclidine (PCP), Ur Negative Normal [facility] Comment on above: Result Comment: The [...] separate order. Performed By: #### D RGA4 ####[facility] [employer] [id number] [employer] [facility] [place] [address] Cocaine, Ur Negative Normal [facility] Comment on above: Performed By: #### D RGA4 ####[facility] [employer] [facility] [place] [address] Barbiturates, Ur Negative Normal [facility] Comment on above: Performed By: #### D RGA4 ####[address] . [place], [place] Opiates, Ur Negative Normal [facility] Comment on above: Performed By: #### D RGA4 ####[address] [place], [place] Amphetamines, Ur Negative Normal [facility] Comment on above: Performed By: #### D RGA4 ####[address] . [place], [place] Benzodiazepines, Ur Positive Normal [facility] Comment on above: Performed By: #### D RGA4 ####[address] [place], [place] Oxycodone/Oxymorphine ,Ur Negative Normal [facility] Comment on above: Performed By: #### D RGA4 ####[address] [place] Hemoglobin AND Hematocriton 12-19-2020 Hematocrit (Bld) [Volume fraction] 30.9 % Low 35.0-47.0 [facility] Comment on above: Performed By: #### H GHCT ####[address] [place] Hemoglobin (Bld) [Mass/Vol] 10.5 g/dL Low 11.7-16.0 [facility] Comment on above: Performed By: #### H GHCT ####[address] . [place], [place] Hematocrit (Bld) [Volume fraction] 16.6 % Low 35.0-47.0 [facility] Comment on above: Performed By: #### A BG, HGHCT, LACT3 ####[address] [place] Hemoglobin (Bld) [Mass/Vol] 5.6 g/dL Critically low 11.7-16.0 [facility] Comment on above: Performed By: #### A BG, HGHCT, LACT3 ####[address] [place] Hemogram w/ Autodiffon 12-19 Erythrocyte distribution width (RBC) [Ratio] 14.8 % High 11.5-14.5 [facility] Comment on above: Performed By: #### LUIS ALFREDO SIU ####[address] [place] Hematocrit (Bld) [Volume fraction] 25.6 % Low 35.0-47.0 [facility] Comment on above: Performed By: #### LUIS ALFREDO SIU ####[address] [place] Hemoglobin (Bld) [Mass/Vol] 8.6 g/dL Low 11.7-16.0 [facility] Comment on above: Performed By: #### LUIS ALFREDO SIU ####[address] MCH (RBC) [Entitic mass] 29.1 pg Normal 26.0-34.0 [facility] Comment on above: Performed By: #### LUIS ALFREDO SIU ####[address] [place] MCHC 33.8 % Normal 32.0-36.0 [facility] Comment on above: Performed By: #### LUIS ALFREDO SIU ####[address] MCV (RBC) [Entitic vol] 86.1 fL Normal 79.0-98.0 [facility] Comment on above: Performed By: #### LUIS ALFREDO SIU ####[address] Platelet mean volume (Bld) [Entitic vol] 10.0 fL Normal 7.4-10.4 [facility] Comment on above: Performed By: #### LUIS ALFREDO SIU ####[address] Platelets (Bld) [#/Vol] 142 10*3/uL Normal 140-440 [facility] Comment on above: Performed By: #### H LUIS ALFREDO RAWLS ####[address] RBC (Bld) [#/Vol] 2.97 10*6/uL Low 3.80-5.20 [facility] Comment on above: Performed By: #### H LUIS ALFREDO RAWLS ####[address] WBC (Bld) [#/Vol] 24.8 10*3/uL High 3.6-10.7 [facility] Comment on above: Performed By: #### H LUIS ALFREDO RAWLS ####[address] Abs Baso Cnt 0.1 10*3/uL Normal 0.0-0.2 [facility] Comment on above: Performed By: #### H CURLY ####[address] Abs Neutrophile Cnt 20.0 10*3/uL High 1.8-7.0 [facility] Comment on above: Performed By: #### H CURLY ####[address] Basophils/100 WBC (Bld) 0.3 % Normal 0.0-2.0 [facility] Comment on above: Performed By: #### H CURLY ####[address] Eosinophils (Bld) [#/Vol] 0.0 10*3/uL Normal 0.0-0.5 [facility] Comment on above: Performed By: #### H EMDMiguel Ángel ####[address] Eosinophils/100 WBC (Bld) 0.0 % Low 1.0-6.0 [facility] Comment on above: Performed By: #### H EMDF ####[address] [address] Erythrocyte distribution width (RBC) [Ratio] 13.8 % Normal 11.5-14.5 [facility] Comment on above: Performed By: #### H EMDF ####[address] Granulocytes/100 WBC (Bld) 85.3 % High 40.0-80.0 [facility] Comment on above: Performed By: #### H EMDF ####[address] Hematocrit (Bld) [Volume fraction] 26.9 % Low 35.0-47.0 [facility] Comment on above: Performed By: #### H EMDF ####[address] Hemoglobin (Bld) [Mass/Vol] 9.1 g/dL Low 11.7-16.0 [facility] Comment on above: Performed By: #### H EMDF ####[address] Lymphocytes (Bld) [#/Vol] 2.4 10*3/uL Normal 1.0-4.3 [facility] Comment on above: Performed By: #### H EMDF ####[address] Lymphocytes/100 WBC (Bld) 10.3 % Low 20.0-40.0 [facility] Comment on above: Performed By: #### H EMDF ####[address] MCH (RBC) [Entitic mass] 29.1 pg Normal 26.0-34.0 [facility] Comment on above: Performed By: #### H EMDF ####[address] MCHC 33.9 % Normal 32.0-36.0 [facility] Comment on above: Performed By: #### H EMDF ####[address] MCV (RBC) [Entitic vol] 85.8 fL Normal 79.0-98.0 [facility] Comment on above: Performed By: #### H EMDF ####[address] Monocytes (Bld) [#/Vol] 1.0 10*3/uL High 0.0-0.8 [facility] Comment on above: Performed By: #### H EMDF ####[address] Monocytes/100 WBC (Bld) 4.1 % Normal 2.0-10.0 [facility] Comment on above: Performed By: #### H EMDF ####[address] Platelet mean volume (Bld) [Entitic vol] 10.1 fL Normal 7.4-10.4 [facility] Comment on above: Performed By: #### H EMDF ####[address] Platelets (Bld) [#/Vol] 112 10*3/uL Low 140-440 [facility] Comment on above: Performed By: #### H EMDF ####[address] RBC (Bld) [#/Vol] 3.13 10*6/uL Low 3.80-5.20 [facility] Comment on above: Performed By: #### H EMDF ####[address] WBC (Bld) [#/Vol] 23.4 10*3/uL High 3.6-10.7 [facility] Comment on above: Performed By: #### H EMDF ####[address] Abs Baso Cnt 0.0 10*3/uL Normal 0.0-0.[address] [facility] Comment on above: Performed By: #### B MP3M, ICA, LFT3, HEMDF, ABG ####[facility] [id number] [place] Abs Neutrophile Cnt 15.8 10*3/uL High 1.8-7.0 [facility] Comment on above: Performed By: #### B MP3M, ICA, LFT3, HEMDF, ABG ####[address] [place], [place] Basophils/100 WBC (Bld) 0.2 % Normal 0.0-2.0 [facility] Comment on above: Performed By: #### B MP3M, ICA, LFT3, HEMDF, ABG ####[address] Eosinophils (Bld) [#/Vol] 0.0 10*3/uL Normal 0.0-0.5 [facility] Comment on above: Performed By: #### B MP3M, ICA, LFT3, HEMDF, ABG ####[address] Eosinophils/100 WBC (Bld) 0.0 % Low 1.0-6.0 [facility] Comment on above: Performed By: #### B MP3M, ICA, LFT3, HEMDF, ABG ####[address] [place] Erythrocyte distribution width (RBC) [Ratio] 14.0 % Normal 11.5-14.5 [facility] Comment on above: Performed By: #### B MP3M, ICA, LFT3, HEMDF, ABG ####[address] Granulocytes/100 WBC (Bld) 85.1 % High 40.0-80.0 [facility] Comment on above: Performed By: #### B MP3M, ICA, LFT3, HEMDF, ABG ####[address] Hematocrit (Bld) [Volume fraction] 30.3 % Low 35.0-47.0 [facility] Comment on above: Performed By: #### B MP3M, ICA, LFT3, HEMDF, ABG ####[address] [place] Hemoglobin (Bld) [Mass/Vol] 10.4 g/dL Low 11.7-16.0 [facility] Comment on above: Performed By: #### B MP3M, ICA, LFT3, HEMDF, ABG ####[address] [place] Lymphocytes (Bld) [#/Vol] 2.0 10*3/uL Normal 1.0-4.3 [facility] Comment on above: Performed By: #### B MP3M, ICA, LFT3, HEMDF, ABG ####[address] [place] Lymphocytes/100 WBC (Bld) 10.9 % Low 20.0-40.0 [facility] Comment on above: Performed By: #### B MP3M, ICA, LFT3, HEMDF, ABG ####[address] MCH (RBC) [Entitic mass] 29.5 pg Normal 26.0-34.0 [facility] Comment on above: Performed By: #### B MP3M, ICA, LFT3, HEMDF, ABG ####[address] MCHC 34.2 % Normal 32.0-36.0 [facility] Comment on above: Performed By: #### B MP3M, ICA, LFT3, HEMDF, ABG ####[address] MCV (RBC) [Entitic vol] 86.1 fL Normal 79.0-98.0 [facility] Comment on above: Performed By: #### B MP3M, ICA, LFT3, HEMDF, ABG ####[address] Monocytes (Bld) [#/Vol] 0.7 10*3/uL Normal 0.0-0.8 [facility] Comment on above: Performed By: #### B MP3M, ICA, LFT3, HEMDF, ABG ####[address] [place] Monocytes/100 WBC (Bld) 3.8 % Normal 2.0-10.0 [facility] Comment on above: Performed By: #### B MP3M, ICA, LFT3, HEMDF, ABG ####[address] [place] Platelet mean volume (Bld) [Entitic vol] 10.4 fL Normal 7.4-10.4 [facility] Comment on above: Performed By: #### B MP3M, ICA, LFT3, HEMDF, ABG ####[address] [place] Platelets (Bld) [#/Vol] 98 10*3/uL Low 140-440 [facility] Comment on above: Performed By: #### B MP3M, ICA, LFT3, HEMDF, ABG ####[address] [place] RBC (Bld) [#/Vol] 3.51 10*6/uL Low 3.80-5.20 [facility] Comment on above: Performed By: #### B MP3M, ICA, LFT3, HEMDF, ABG ####[address] [place] WBC (Bld) [#/Vol] 18.5 10*3/uL High 3.6-10.7 [facility] Comment on above: Performed By: #### B MP3M, ICA, LFT3, HEMDF, ABG ####[address] [place] LAB SCANNED REPORTon [facility] Lactic Acidon 12-19-2020 Lactate [Moles/Vol] 1.3 mmol/L Normal 0.7-2.0 [facility] Comment on above: Performed By: #### A BG, HGHCT, LACT3 ####[address] [place] Leukodepleted Red Cellson Leukodepleted Red Cells Normal [facility] Comment on above: Performed By: #### P RP, LRC, SDP, CR5 ####[address] [address]#### TSGL ####[facility] Magnesiumon 12-19-2020 Magnesium [Mass/Vol] 1.7 mg/dL Normal 1.6-2.3 [facility] Comment on above: Performed By: #### M G3, PHOS3, BMP3 ####[address] Manual Diffon 12-19-2020 Abs Lymph Cnt 1.5 10*3/uL Normal 1.1-4.5 [facility] Comment on above: Performed By: #### LUIS ALFREDO SIU ####[address] [place] Abs Monocyte Cnt 0.5 10*3/uL Normal 0.2-1.1 [facility] Comment on above: Performed By: #### LUIS ALFREDO SIU ####[address] [place] Abs Neutrophile Cnt 22.8 10*3/uL High 2.2-8.2 [facility] Comment on above: Performed By: #### LUIS ALFREDO SIU ####[address] [place] Bands 23 % High 0-3 [facility] Comment on above: Performed By: #### LUIS ALFREDO SIU ####[address] [place] Lymphocytes 6 % Low 20-40 [facility] Comment on above: Performed By: #### LUIS ALFREDO SIU ####[address] [place] Monocytes 2 % Normal 2-10 [facility] Comment on above: Performed By: #### LUIS ALFREDO SIU ####[address] RBC Morphology Normal Normal [facility] Comment on above: Performed By: #### LUIS ALFREDO SIU ####[address] Seg Neutrophils 69 % Normal 40-80 [facility] Comment on above: Performed By: #### LUIS ALFREDO SIU ####[address] Abs Baso Cnt 0.0 10*3/uL Normal 0.0-0.[address] [facility] Comment on above: Performed By: #### LUIS ALFREDO SIU ####[address] Abs Eosin Cnt 0.0 10*3/uL Normal 0.0-0.5 [facility] Comment on above: Performed By: #### LUISA LFREDO SIU ####[address] Basophils 0 % Normal 0-2 [facility] Comment on above: Performed By: ###LUIS ALFREDO SWEET ####[address] Cells counted [address] [facility] Comment on above: Performed By: #### LUIS ALFREDO SIU ####[address] Eosinophils 0 % Low 1-6 [facility] Comment on above: Performed By: #### LUIS ALFREDO SIU ####[address] Manual Differentialon 2020 Absolute Baso # 0.0 10*3/uL 0.0 - 0.2 10*3/uL [facility] Absolute Eos # 0.0 10*3/uL 0.0 - 0.5 10*3/uL [facility] Absolute Lymph # 1.5 10*3/uL 1.1 - 4.5 10*3/uL [facility] Absolute Rains # 0.5 10*3/uL 0.2 - 1.1 10*3/uL [...] Neutrophils 69 % 40 - 80 % [facility] TOTAL CELLS COUNTED 100 [facility] No Panel Informationon 12-19 [facility] Radiology Study observation (narrative) [facility] Work Phone: Op Noteon 12-19-2020 Op Note Normal [facility] POOLED CRYO-5 PKon 1 POOLED CRYO-5 PK Normal [facility] Comment on above: Performed By: #### P RP, LRC, SDP, CR5 ####[address] [address]#### TSGL ####[facility] PREPARE CRYOPRECIPITATE (ADOBE BLOCK MAKER SSMATCH), 1 Producton 12-19-2020 ABO and Rh group Nom (Bld) 6[address] [facility] Blood product unit ID (Dose) [#] [id number] [facility] Dispense Status Blood Bank transfused [facility] Expiration Date [facility] Product Code Blood Bank [id number] [facility] Phosphoruson 12-19-2020 Phosphate [Mass/Vol] 4.0 mg/dL Normal 2.5-4.5 [facility] Comment on above: Performed By: #### M G3, PHOS3, BMP3 ####[address] [place] [address] Urine Drug Screenon 12-20-19 21 Amphetamines, urine Negative [facility] Barbiturates, Ur Negative [facility] Benzodiazepine Ur Qual Positive [facility] Cocaine Metabolites, Ur Negative [facility] Methadone, Urine Positive [facility] Opiates, Urine Negative [facility] Oxycodone Screen, Ur Negative [facility] PCP, Urine Negative [facility] XR CHEST PORTABLEon 12-20-19 [facility] Work Phone: [facility] Work Phone: Radiology Study observation (narrative) [facility] Work Phone: [phone] [facility] Work Phone: Radiology Study observation (narrative) [facility] Work Phone: XR CHEST PORTABLEOrdered By: Jerome Joseph on 12-19-2020 [facility] Work Phone: XR Shoulder Left 2 VWon 11- [facility] Work Phone: [phone] [facility] Work Phone: APTEM, Assayon 12-18-2020 APTEM, A10 36 mm Low 50-70 [facility] Comment on above: Performed By: #### E XTEM, FIBTM, APTEM ####[address] [facility] [place] APTEM, A20 44 mm Low 50-70 [facility] Comment on above: Performed By: #### E XTEM, FIBTM, APTEM ####[address] . [place] [place] AP[facility], Alpha 55 Low 65-80 [facility] Comment on above: Performed By: #### E XTEM, FIBTM, APTEM ####[address] [facility] [place] AP[facility], Clot Formation Time 196 s High 48-127 [facility] Comment on above: Performed By: #### E XTEM, FIBTM, APTEM ####[address] [facility] [place] APTEM, Clotting Time 90 s High 43-82 [facility] Comment on above: Performed By: #### E XTEM, FIBTM, APTEM ####[address] [place], [place] APTEM, Maximal Clot Firmness 50 mm Low 52-70 [facility] Comment on above: Result Comment: ROTE M viscoelastic testing is not FDA approved forthe pediatric population (<21 years of age) and theattached reference ranges pertain to adults only. Performed By: #### E XTEM, FIBTM, APTEM ####[address] [place], [place] APTEM, A10 51 mm Normal 50-70 [facility] Comment on above: Performed By: #### A PTEM, FIBTM, EXTEM ####[address] [place] APTEM, A20 58 mm Normal 50-70 [facility] Comment on above: Performed By: #### A PTEM, FIBTM, EXTEM ####[address] [place], [place] APTEM, Alpha 71 Normal 65-80 [facility] Comment on above: Performed By: #### A PTEM, FIBTM, EXTEM ####[address] [place] APTEM, Clot Formation Time 96 s Normal 48-127 [facility] Comment on above: Performed By: #### A PTEM, FIBTM, EXTEM ####[address] [place] APTEM, Clotting Time 64 s Normal 43-82 [facility] Comment on above: Performed By: #### A PTEM, FIBTM, EXTEM ####[address] [place] APTEM, Maximal Clot Firmness 61 mm Normal 52-70 [facility] Comment on above: Result Comment: ROTE M viscoelastic testing is not FDA approved forthe pediatric population (<21 years of age) and theattached reference ranges pertain to adults only. Performed By: #### A PTEM, FIBTM, EXTEM ####[address] [place], [place] Arterial Blood Gaseson 12-18 CO2 [Moles/Vol] 27.4 mmol/L High 23.0-27.0 [facility] Comment on above: Performed By: #### B MP3M, ICA, LFT3, HEMDF, ABG ####[address] [place] HCO3 (Bld) [Moles/Vol] 26.0 mmol/L High 21.0-25.0 [facility] Comment on above: Performed By: #### B MP3M, ICA, LFT3, HEMDF, ABG ####[address] [place] Hemoglobin (Bld) [Mass/Vol] 10.3 g/dL Normal ScreenOnly [facility] Comment on above: Performed By: #### B MP3M, ICA, LFT3, HEMDF, ABG ####[address] [place] Oxygen (Bld) [Partial pressure] 422.7 mm[Hg] High 80.0-100.0 [facility] Comment on above: Performed By: #### B MP3M, ICA, LFT3, HEMDF, ABG ####[address] [place] Oxygen saturation in Blood 98.8 % Normal 95.0-100.0 [facility] Comment on above: Performed By: #### B MP3M, ICA, LFT3, HEMDF, ABG ####[address] [place] pCO2 44.2 mm[Hg] Normal 35.0-45.0 [facility] Comment on above: Performed By: #### B MP3M, ICA, LFT3, HEMDF, ABG ####[address] [place] pH 7.388 Normal 7.350-7.450 [facility] Comment on above: Performed By: #### B MP3M, ICA, LFT3, HEMDF, ABG ####[address] Std Base Excess 0.8 mmol/L Normal -3.0-3.0 [facility] Comment on above: Performed By: #### B MP3M, ICA, LFT3, HEMDF, ABG ####[address] [place] FIO2 No data Normal [facility] Comment on above: Performed By: #### B MP3M, ICA, LFT3, HEMDF, ABG ####[address] [place] CO2 [Moles/Vol] 20.4 mmol/L Low 23.0-27.0 [facility] Comment on above: Performed By: #### C MP3, LACT3, ABG, PT/AP, HEMDF ####[address] [place] HCO3 (Bld) [Moles/Vol] 19.1 mmol/L Low 21.0-25.0 [facility] Comment on above: Performed By: #### C MP3, LACT3, ABG, PT/AP, HEMDF ####[address] [place] Hemoglobin (Bld) [Mass/Vol] 11.0 g/dL Normal ScreenOnly [facility] Comment on above: Performed By: #### C MP3, LACT3, ABG, PT/AP, HEMDF ####[address] [place] Oxygen (Bld) [Partial pressure] 414.1 mm[Hg] High 80.0-100.0 [facility] Comment on above: Performed By: #### C MP3, LACT3, ABG, PT/AP, HEMDF ####[address] [place] Oxygen saturation in Blood 98.9 % Normal 95.0-100.0 [facility] Comment on above: Performed By: #### C MP3, LACT3, ABG, PT/AP, HEMDF ####[address] [place] pCO2 43.0 mm[Hg] Normal 35.0-45.0 [facility] Comment on above: Performed By: #### C MP3, LACT3, ABG, PT/AP, HEMDF ####[address] [place], [place] pH 7.266 Low 7.350-7.450 [facility] Comment on above: Performed By: #### C MP3, LACT3, ABG, PT/AP, HEMDF ####[address] [place], [place] Std Base Excess -7.5 mmol/L Low -3.0-3.0 [facility] Comment on above: Performed By: #### C MP3, LACT3, ABG, PT/AP, HEMDF ####[address] [place] FIO2 No data Normal [facility] Comment on above: Performed By: #### C MP3, LACT3, ABG, PT/AP, HEMDF ####[address] [place] Basic Metabolic Panelon 11-0 Calcium [Mass/Vol] 7.1 mg/dL Low 8.4-10.4 [facility] Comment on above: Performed By: #### B MP3M, ICA, LFT3, HEMDF, ABG ####[address] [place] Glucose [Mass/Vol] 58 mg/dL Low 70-100 [facility] Comment on above: Performed By: #### B MP3M, ICA, LFT3, HEMDF, ABG ####[address] [place] Anion gap [Moles/Vol] 1 mmol/L Low 3-13 [facility] Comment on above: Performed By: #### B MP3M, ICA, LFT3, HEMDF, ABG ####[address] [place], [place] CO2 [Moles/Vol] 25 mmol/L Normal 22-30 [facility] Comment on above: Performed By: #### B MP3M, ICA, LFT3, HEMDF, ABG ####[address] [place] Creatinine [Mass/Vol] 1.11 mg/dL Normal 0.52-1.25 [facility] Comment on above: Performed By: #### B MP3M, ICA, LFT3, HEMDF, ABG ####[address] [place] [address] GFR/1.73 sq M.predicted among blacks MDRD (S/P/Bld) [Vol rate/Area] 67.6 mL/min/{1.73_m2} Normal >60 [facility] Comment on above: Performed By: #### B MP3M, ICA, LFT3, HEMDF, ABG ####[address] [place] GFR/1.73 sq M.predicted among non-blacks MDRD (S/P/Bld) [Vol rate/Area] 58.3 mL/min/{1.73_m2} Abnormal >60 [facility] Comment on above: Result Comment: KDIG O guidelines provide the following GFR categories:Stage GFR(ml/min/1.73 m2) TermsG1 >=90 Normal or highG2 60-89 Mildly decreased*G3a 45-59 Mildly to moderately [id number] 30-44 Moderately to severely decreasedG4 15-29 Severely [...] #### B MP3M, ICA, LFT3, HEMDF, ABG ####[address] [place] [address] Urea nitrogen [Mass/Vol] 15 mg/dL Normal 9-20 [facility] Comment on above: Performed By: #### B MP3M, ICA, LFT3, HEMDF, ABG ####[address] [place] [address] Potassium [Moles/Vol] 3.9 mmol/L Normal 3.5-5.1 [facility] Comment on above: Performed By: #### B MP3M, ICA, LFT3, HEMDF, ABG ####[address] [place] Sodium [Moles/Vol] 138 mmol/L Normal 135-145 [facility] Comment on above: Performed By: #### B MP3M, ICA, LFT3, HEMDF, ABG ####[address] [place], [place] Chloride [Moles/Vol] 111 mmol/L High 98-107 [facility] Comment on above: Performed By: #### B MP3M, ICA, LFT3, HEMDF, ABG ####[address] [place], [place] Calcium [Mass/Vol] 8.1 mg/dL Low 8.4-10.4 [facility] Comment on above: Performed By: #### E TOH4, HEMOG, PT/AP, BMP3, LACT3, TROPN ####[address] [place], [place] Glucose [Mass/Vol] 242 mg/dL High 70-100 [facility] Comment on above: Performed By: #### E TOH4, HEMOG, PT/AP, BMP3, LACT3, TROPN ####[address] [place], [place] Anion gap [Moles/Vol] 7 mmol/L Normal 3-13 [facility] Comment on above: Performed By: #### E TOH4, HEMOG, PT/AP, BMP3, LACT3, TROPN ####[facility] [place], [place] CO2 [Moles/Vol] 23 mmol/L Normal 22-30 [facility] Comment on above: Performed By: #### E TOH4, HEMOG, PT/AP, BMP3, LACT3, TROPN ####[address] [place], [place] Creatinine [Mass/Vol] 1.64 mg/dL High 0.52-1.25 [facility] Comment on above: Performed By: #### E TOH4, HEMOG, PT/AP, BMP3, LACT3, TROPN ####[address] [place], [place] GFR/1.73 sq M.predicted among blacks MDRD (S/P/Bld) [Vol rate/Area] 42.2 mL/min/{1.73_m2} Abnormal >60 [facility] Comment on above: Performed By: #### E TOH4, HEMOG, PT/AP, BMP3, LACT3, TROPN ####[address] [place], [place] GFR/1.73 sq M.predicted among non-blacks MDRD (S/P/Bld) [Vol rate/Area] 36.4 mL/min/{1.73_m2} Abnormal >60 [facility] Comment on above: Result Comment: KDIG O guidelines provide the following GFR categories:Stage GFR(ml/min/1.73 m2) TermsG1 >=90 Normal or highG2 60-89 Mildly decreased*G3a 45-59 Mildly to moderately [id number] 30-44 Moderately to severely decreasedG4 15-29 Severely [...] E TOH4, HEMOG, PT/AP, BMP3, LACT3, TROPN ####[address] [place], [place] Urea nitrogen [Mass/Vol] 15 mg/dL Normal 9-20 [facility] Comment on above: Performed By: #### E TOH4, HEMOG, PT/AP, BMP3, LACT3, TROPN ####[address] [place], [place] Potassium [Moles/Vol] 7.1 mmol/L Critically high 3.5-5.1 [facility] Comment on above: Performed By: #### E TOH4, HEMOG, PT/AP, BMP3, LACT3, TROPN ####[address] [place], [place] Chloride [Moles/Vol] 99 mmol/L Normal 98-107 [facility] Comment on above: Performed By: #### E TOH4, HEMOG, PT/AP, BMP3, LACT3, TROPN ####[address] [place], [place] Sodium [Moles/Vol] 129 mmol/L Low 135-145 [facility] Comment on above: Performed By: #### E TOH4, HEMOG, PT/AP, BMP3, LACT3, TROPN ####[address] COVID and Resp PCR Panelon 1 02-18-2020 SARS-CoV-2 (COVID-19) RNA CAPRICE+probe Ql (Unsp spec) Normal [facility] Comment on above: Performed By: #### B FRP2 ####[address] CR Ankle 3+ Views Bilateralo n 12-18-2020 CR Ankle 3+ Views Bilateral Normal [facility] CR Chest Portableon 12-19-19 21 CR Chest Portable Normal [facility] CR Elbow 3+ Views Bilateralo n 12-18-2020 CR Elbow 3+ Views Bilateral Normal [facility] CR Femur 2+ Views Bilateralo n 12-18-2020 CR Femur 2+ Views Bilateral Normal [facility] CR Forearm 2 Views Bilateral on 12-18-2020 CR Forearm 2 Views Bilateral Normal [facility] CR Hand Complete 3+ Views Bi lateralon 12-18-2020 CR Hand Complete 3+ Views Bilateral Normal [facility] CR Humerus 2+ Views Lefton 1 02-18-2020 CR Humerus 2+ Views Left Normal [facility] CR Humerus 2+ Views Righton 12-18-2020 CR Humerus 2+ Views Right Normal [facility] CR Knee 3 Views Bilateralon 12-18-2020 CR Knee 3 Views Bilateral Normal [facility] CR Pelvis 1 or 2 Viewson CR Pelvis 1 or 2 Views Normal [facility] CR Pelvis Complete Minimum 3 Viewson 12-18-2020 CR Pelvis Complete Minimum 3 Views Normal [facility] CR Tibia/Fibula 2 Views Bila teralon 12-18-2020 CR Tibia/Fibula 2 Views Bilateral Normal [facility] CT Chest/Abdomen/Pelvis (IV Only)on 12-18-2020 CT Chest/Abdomen/Pelvis (IV Only) Normal [facility] CT Head or Brain w/o Contras ton 12-18-2020 CT Head or Brain w/o Contrast Normal [facility] CT Spine Cervical w/o Contra ston 12-18-2020 CT Spine Cervical w/o Contrast Normal [facility] CTA Head/Neck w/ + w/o contr trung 12-18-2020 CTA Head/Neck w/ + w/o contrast Normal [facility] Calcium,Ionizedon 12-18-2020 Ionized Ca,Measured 3.90 mg/dL Low 4.30-5.20 [facility] Comment on above: Performed By: #### B MP3M, ICA, LFT3, HEMDF, ABG ####[facility] [place] [address] pH, Ionized Calcium 7.45 Normal 7.31-7.46 [facility] Comment on above: Performed By: #### B MP3M, ICA, LFT3, HEMDF, ABG ####[facility] [id number] [place], [place] Comp Metabolic Panelon 12-18 ALP [Catalytic activity/Vol] 54 U/L Normal 38-126 [facility] Comment on above: Performed By: #### C MP3, LACT3, HEMDF, PT/AP ####[address] [place], [place] ALT [Catalytic activity/Vol] 45 U/L High 0-34 [facility] Comment on above: Result Comment: The ALT test is performed by an updated assay method.Please note that the reference intervals have beenchanged and are now sex specific. Performed By: #### C MP3, LACT3, HEMDF, PT/AP ####[address] [place], [place] Calcium [Mass/Vol] 7.2 mg/dL Low 8.4-10.4 [facility] Comment on above: Performed By: #### C MP3, LACT3, HEMDF, PT/AP ####[address] [place], [place] Glucose [Mass/Vol] 58 mg/dL Low 70-100 [facility] Comment on above: Performed By: #### C MP3, LACT3, HEMDF, PT/AP ####[address] [place], [place] Protein [Mass/Vol] 4.5 g/dL Low 6.3-8.2 [facility] Comment on above: Performed By: #### C MP3, LACT3, HEMDF, PT/AP ####[address] [place], [place] Urea nitrogen [Mass/Vol] 15 mg/dL Normal 9-20 [facility] Comment on above: Performed By: #### C MP3, LACT3, HEMDF, PT/AP ####[address] [place], [place] Anion gap [Moles/Vol] 1 mmol/L Low 3-13 [facility] Comment on above: Performed By: #### C MP3, LACT3, HEMDF, PT/AP ####[facility] [place] [address] AST [Catalytic activity/Vol] 107 U/L High 15-46 [facility] Comment on above: Performed By: #### C MP3, LACT3, HEMDF, PT/AP ####[facility] [place] [address] Bilirubin [Mass/Vol] 1.1 mg/dL Normal 0.2-1.3 [facility] Comment on above: Performed By: #### C MP3, LACT3, HEMDF, PT/AP ####[address] [place] [address] CO2 [Moles/Vol] 25 mmol/L Normal 22-30 [facility] Comment on above: Performed By: #### C MP3, LACT3, HEMDF, PT/AP ####[address] [place], [place] Creatinine [Mass/Vol] 1.11 mg/dL Normal 0.52-1.25 [facility] Comment on above: Performed By: #### C MP3, LACT3, HEMDF, PT/AP ####[address] [place] [address] GFR/1.73 sq M.predicted among blacks MDRD (S/P/Bld) [Vol rate/Area] 67.6 mL/min/{1.73_m2} Normal >60 [facility] Comment on above: Performed By: #### C MP3, LACT3, HEMDF, PT/AP ####[address] [place] [address] GFR/1.73 sq M.predicted among non-blacks MDRD (S/P/Bld) [Vol rate/Area] 58.3 mL/min/{1.73_m2} Abnormal >60 [facility] Comment on above: Result Comment: KDIG O guidelines provide the following GFR categories:Stage GFR(ml/min/1.73 m2) TermsG1 >=90 Normal or highG2 60-89 Mildly decreased*G3a 45-59 Mildly to moderately [id number] 30-44 Moderately to severely decreasedG4 15-29 Severely [...] By: #### C MP3, LACT3, HEMDF, PT/AP ####[address] [place], [place] Chloride [Moles/Vol] 110 mmol/L High 98-107 [facility] Comment on above: Performed By: #### C MP3, LACT3, HEMDF, PT/AP ####[address] [place], [place] Potassium [Moles/Vol] 3.8 mmol/L Normal 3.5-5.1 [facility] Comment on above: Performed By: #### C MP3, LACT3, HEMDF, PT/AP ####[address] [place], [place] Sodium [Moles/Vol] 135 mmol/L Normal 135-145 [facility] Comment on above: Performed By: #### C MP3, LACT3, HEMDF, PT/AP ####[address] [place], [place] Albumin [Mass/Vol] 2.4 g/dL Low 3.5-5.0 [facility] Comment on above: Performed By: #### C MP3, LACT3, HEMDF, PT/AP ####[address] [place], [place] ALT [Catalytic activity/Vol] 29 U/L Normal 0-34 [facility] Comment on above: Result Comment: The ALT test is performed by an updated assay method.Please note that the reference intervals have beenchanged and are now sex specific. Performed By: #### C MP3, LACT3, ABG, PT/AP, HEMDF ####[address] [facility] [place] Calcium [Mass/Vol] 7.7 mg/dL Low 8.4-10.4 [facility] Comment on above: Performed By: #### C MP3, LACT3, ABG, PT/AP, HEMDF ####[address] [facility] [place] ALP [Catalytic activity/Vol] 47 U/L Normal 38-126 [facility] Comment on above: Performed By: #### C MP3, LACT3, ABG, PT/AP, HEMDF ####[address] [facility] [place] Anion gap [Moles/Vol] 6 mmol/L Normal 3-13 [facility] Comment on above: Performed By: #### C MP3, LACT3, ABG, PT/AP, HEMDF ####[address] [facility] [place] AST [Catalytic activity/Vol] 68 U/L High 15-46 [facility] Comment on above: Performed By: #### C MP3, LACT3, ABG, PT/AP, HEMDF ####[address] [facility] [place] Bilirubin [Mass/Vol] 0.7 mg/dL Normal 0.2-1.3 [facility] Comment on above: Performed By: #### C MP3, LACT3, ABG, PT/AP, HEMDF ####[address] [facility] [place] CO2 [Moles/Vol] 18 mmol/L Low 22-30 [facility] Comment on above: Performed By: #### C MP3, LACT3, ABG, PT/AP, HEMDF ####[address] [place], [place] Creatinine [Mass/Vol] 1.17 mg/dL Normal 0.52-1.25 [facility] Comment on above: Performed By: #### C MP3, LACT3, ABG, PT/AP, HEMDF ####[facility] [employer] [place], [place] GFR/1.73 sq M.predicted among blacks MDRD (S/P/Bld) [Vol rate/Area] 63.5 mL/min/{1.73_m2} Normal >60 [facility] Comment on above: Performed By: #### C MP3, LACT3, ABG, PT/AP, HEMDF ####[facility] [employer] [id number] [place], [place] GFR/1.73 sq M.predicted among non-blacks MDRD (S/P/Bld) [Vol rate/Area] 54.7 mL/min/{1.73_m2} Abnormal >60 [facility] Comment on above: Result Comment: KDIG O guidelines provide the following GFR categories:Stage GFR(ml/min/1.73 m2) TermsG1 >=90 Normal or highG2 60-89 Mildly decreased*G3a 45-59 Mildly to moderately [id number] 30-44 Moderately to severely decreasedG4 15-29 Severely [...] #### C MP3, LACT3, ABG, PT/AP, HEMDF ####[facility] [employer] [id number] [place], [place] Glucose [Mass/Vol] 129 mg/dL High 70-100 [facility] Comment on above: Performed By: #### C MP3, LACT3, ABG, PT/AP, HEMDF ####[facility] [employer] [id number] [place], [place] Protein [Mass/Vol] 4.4 g/dL Low 6.3-8.2 [facility] Comment on above: Performed By: #### C MP3, LACT3, ABG, PT/AP, HEMDF ####[address] [place], [place] Urea nitrogen [Mass/Vol] 14 mg/dL Normal 9-20 [facility] Comment on above: Performed By: #### C MP3, LACT3, ABG, PT/AP, HEMDF ####[address] [place], [place] Potassium [Moles/Vol] 5.2 mmol/L High 3.5-5.1 [facility] Comment on above: Performed By: #### C MP3, LACT3, ABG, PT/AP, HEMDF ####[address] [place], [place] Albumin [Mass/Vol] 2.3 g/dL Low 3.5-5.0 [facility] Comment on above: Performed By: #### C MP3, LACT3, ABG, PT/AP, HEMDF ####[address] [place], [place] Chloride [Moles/Vol] 111 mmol/L High 98-107 [facility] Comment on above: Performed By: #### C MP3, LACT3, ABG, PT/AP, HEMDF ####[address] [place], [place] Sodium [Moles/Vol] 134 mmol/L Low 135-145 [facility] Comment on above: Performed By: #### C MP3, LACT3, ABG, PT/AP, HEMDF ####[address] [place], [place] ED Provider Noteon ED Provider Note Normal [facility] EXTEM Assayon 12-18-2020 EXTEM, A10 42 mm Low 50-70 [facility] Comment on above: Performed By: #### F IBTM, EXTEM ####[address] [facility] [place] EXTEM, A20 50 mm Normal 50-70 [facility] Comment on above: Performed By: #### F IBTM, EXTEM ####[facility] [facility] [place] EXTEM, Alpha 62 Low 65-80 [facility] Comment on above: Performed By: #### F IBTM, EXTEM ####[address] [facility] [place] EXTEM, Clot Formation Time 147 s High 48-127 [facility] Comment on above: Performed By: #### F IBTM, EXTEM ####[address] [place], [place] EXTEM, Clotting Time 66 s Normal 43-82 [facility] Comment on above: Performed By: #### F IBTM, EXTEM ####[address] [place], [place] EXTEM, Maximal Clot Firmness 53 mm Normal 52-70 [facility] Comment on above: Result Comment: ROTE M viscoelastic testing is not FDA approved forthe pediatric population (<21 years of age) and theattached reference ranges pertain to adults only. Performed By: #### F IBTM, EXTEM ####[address] [place], [place] EXTEM, A10 40 mm Low 50-70 [facility] Comment on above: Performed By: #### E XTEM, FIBTM, APTEM ####[address] [facility] [place] EXTEM, A20 48 mm Low 50-70 [facility] Comment on above: Performed By: #### E XTEM, FIBTM, APTEM ####[address] [facility] [place] EXTEM, Alpha 62 Low 65-80 [facility] Comment on above: Performed By: #### E XTEM, FIBTM, APTEM ####[address] [facility] [place] EXTEM, Clot Formation Time 150 s High 48-127 [facility] Comment on above: Performed By: #### E XTEM, FIBTM, APTEM ####[address] [place], [place] EXTEM, Clotting Time 68 s Normal 43-82 [facility] Comment on above: Performed By: #### E XTEM, FIBTM, APTEM ####[address] [place], [place] EXTEM, Maximal Clot Firmness 51 mm Low 52-70 [facility] Comment on above: Result Comment: ROTE M viscoelastic testing is not FDA approved forthe pediatric population (<21 years of age) and theattached reference ranges pertain to adults only. Performed By: #### E XTEM, FIBTM, APTEM ####[address] [place], [place] EXTEM, A10 51 mm Normal 50-70 [facility] Comment on above: Performed By: #### A PTEM, FIBTM, EXTEM ####[address] [place], [place] EXTEM, A20 59 mm Normal 50-70 [facility] Comment on above: Performed By: #### A PTEM, FIBTM, EXTEM ####[address] [place], [place] EXTEM, Alpha 71 Normal 65-80 [facility] Comment on above: Performed By: #### A PTEM, FIBTM, EXTEM ####[address] [place], [place] EXTEM, Clot Formation Time 96 s Normal 48-127 [facility] Comment on above: Performed By: #### A PTEM, FIBTM, EXTEM ####[address] [place], [place] EXTEM, Clotting Time 66 s Normal 43-82 [facility] Comment on above: Performed By: #### A PTEM, FIBTM, EXTEM ####[address] [place] [address] EXTEM, Maximal Clot Firmness 62 mm Normal 52-70 [facility] Comment on above: Result Comment: ROTE M viscoelastic testing is not FDA approved forthe pediatric population (<21 years of age) and theattached reference ranges pertain to adults only. Performed By: #### A PTEM, FIBTM, EXTEM ####[facility] [employer] [place] [address] Ethanol Serum/Plasmaon 12-18 Ethanol-Serum/Plasma < 0.010 Normal 0.000-0.010 [facility] Comment on above: Result Comment: NOTE : This result is for medical treatment only. Analysis performed using non-forensic procedures. Performed By: #### E TOH4, HEMOG, PT/AP, BMP3, LACT3, TROPN ####[facility] [employer] [id number] [place] [address] FIBTEM, Assayon 12-18-2020 FIBTEM, A10 9 mm Normal [facility] Comment on above: Performed By: #### F IBTM, EXTEM ####[facility] [employer] [place] [address] FIBTEM, A20 9 mm Normal [facility] Comment on above: Performed By: #### F IBTM, EXTEM ####[facility] [employer] [place] [address] FIBTEM, Maximal Clot Firmness 10 mm Normal 7-24 [facility] Comment on above: Result Comment: ROTE M viscoelastic testing is not FDA approved forthe pediatric population (<21 years of age) and theattached reference ranges pertain to adults only. Performed By: #### F IBTM, EXTEM ####[facility] [employer] [id number] [place] [address] FIBTEM, A10 9 mm Normal [facility] Comment on above: Performed By: #### E XTEM, FIBTM, APTEM ####[facility] [employer] [id number] [place] [address] FIBTEM, A20 10 mm Normal [facility] Comment on above: Performed By: #### E XTEM, FIBTM, APTEM ####[facility] [place], [place] FIBTEM, Maximal Clot Firmness 10 mm Normal 7-24 [facility] Comment on above: Result Comment: ROTE M viscoelastic testing is not FDA approved [facility] (<21 years of age) and theattached reference ranges pertain to adults only. Performed By: #### E XTEM, FIBTM, APTEM ####[address] [place], [place] FIBTEM, A10 14 mm Normal [facility] Comment on above: Performed By: #### A PTEM, FIBTM, EXTEM ####[address] [place] FIBTEM, A20 18 mm Normal [facility] Comment on above: Performed By: #### A PTEM, FIBTM, EXTEM ####[address] [place] FIBTEM, Maximal Clot Firmness 19 mm Normal 7-24 [facility] Comment on above: Result Comment: ROTE M viscoelastic testing is not FDA approved forthe pediatric population (<21 years of age) and theattached reference ranges pertain to adults only. Performed By: #### A PTEM, FIBTM, EXTEM ####[address] [place], [place] Hemogramon 12-18-2020 Erythrocyte distribution width (RBC) [Ratio] 15.1 % High 11.5-14.5 [facility] Comment on above: Performed By: #### E TOH4, HEMOG, PT/AP, BMP3, LACT3, TROPN ####[address] [place], [place] Hematocrit (Bld) [Volume fraction] 39.2 % Normal 35.0-47.0 [facility] Comment on above: Performed By: #### E TOH4, HEMOG, PT/AP, BMP3, LACT3, TROPN ####[address] [place] Hemoglobin (Bld) [Mass/Vol] 12.5 g/dL Normal 11.7-16.0 [facility] Comment on above: Performed By: #### E TOH4, HEMOG, PT/AP, BMP3, LACT3, TROPN ####[address] [place], [place] MCH (RBC) [Entitic mass] 28.2 pg Normal 26.0-34.0 [facility] Comment on above: Performed By: #### E TOH4, HEMOG, PT/AP, BMP3, LACT3, TROPN ####[address] MCHC 31.8 % Low 32.0-36.0 [facility] Comment on above: Performed By: #### E TOH4, HEMOG, PT/AP, BMP3, LACT3, TROPN ####[address] [place] MCV (RBC) [Entitic vol] 88.5 fL Normal 79.0-98.0 [facility] Comment on above: Performed By: #### E TOH4, HEMOG, PT/AP, BMP3, LACT3, TROPN ####[address] [place], [place] Platelet mean volume (Bld) [Entitic vol] 8.6 fL Normal 7.4-10.4 [facility] Comment on above: Performed By: #### E TOH4, HEMOG, PT/AP, BMP3, LACT3, TROPN ####[address] [place], [place] Platelets (Bld) [#/Vol] 178 10*3/uL Normal 140-440 [facility] Comment on above: Performed By: #### E TOH4, HEMOG, PT/AP, BMP3, LACT3, TROPN ####[address] [place] RBC (Bld) [#/Vol] 4.44 10*6/uL Normal 3.80-5.20 [facility] Comment on above: Performed By: #### E TOH4, HEMOG, PT/AP, BMP3, LACT3, TROPN ####[address] [place] WBC (Bld) [#/Vol] 19.5 10*3/uL High 3.6-10.7 [facility] Comment on above: Performed By: #### E TOH4, HEMOG, PT/AP, BMP3, LACT3, TROPN ####[address] [place], [place] Hemogram w/ Autodiffon 12-18 Abs Baso Cnt 0.1 10*3/uL Normal 0.0-0.[address] [facility] Comment on above: Performed By: #### C MP3, LACT3, HEMDF, PT/AP ####[address] Abs Neutrophile Cnt 8.6 10*3/uL High 1.8-7.0 [facility] Comment on above: Performed By: #### C MP3, LACT3, HEMDF, PT/AP ####[address] [place], [place] Basophils/100 WBC (Bld) 0.5 % Normal 0.0-2.0 [facility] Comment on above: Performed By: #### C MP3, LACT3, HEMDF, PT/AP ####[address] Eosinophils (Bld) [#/Vol] 0.1 10*3/uL Normal 0.0-0.5 [facility] Comment on above: Performed By: #### C MP3, LACT3, HEMDF, PT/AP ####[address] Eosinophils/100 WBC (Bld) 0.5 % Low 1.0-6.0 [facility] Comment on above: Performed By: #### C MP3, LACT3, HEMDF, PT/AP ####[address] [place] Erythrocyte distribution width (RBC) [Ratio] 15.3 % High 11.5-14.5 [facility] Comment on above: Performed By: #### C MP3, LACT3, HEMDF, PT/AP ####[address] [place] Granulocytes/100 WBC (Bld) 83.9 % High 40.0-80.0 [facility] Comment on above: Performed By: #### C MP3, LACT3, HEMDF, PT/AP ####[address] Hematocrit (Bld) [Volume fraction] 28.7 % Low 35.0-47.0 [facility] Comment on above: Performed By: #### C MP3, LACT3, HEMDF, PT/AP ####[address] [place] Hemoglobin (Bld) [Mass/Vol] 9.5 g/dL Low 11.7-16.0 [facility] Comment on above: Performed By: #### C MP3, LACT3, HEMDF, PT/AP ####[address] Lymphocytes (Bld) [#/Vol] 1.2 10*3/uL Normal 1.0-4.3 [facility] Comment on above: Performed By: #### C MP3, LACT3, HEMDF, PT/AP ####[address] Lymphocytes/100 WBC (Bld) 11.3 % Low 20.0-40.0 [facility] Comment on above: Performed By: #### C MP3, LACT3, HEMDF, PT/AP ####[address] MCH (RBC) [Entitic mass] 28.9 pg Normal 26.0-34.0 [facility] Comment on above: Performed By: #### C MP3, LACT3, HEMDF, PT/AP ####[address] MCHC 33.2 % Normal 32.0-36.0 [facility] Comment on above: Performed By: #### C MP3, LACT3, HEMDF, PT/AP ####[address] [place] MCV (RBC) [Entitic vol] 86.9 fL Normal 79.0-98.0 [facility] Comment on above: Performed By: #### C MP3, LACT3, HEMDF, PT/AP ####[address] [place] Monocytes (Bld) [#/Vol] 0.4 10*3/uL Normal 0.0-0.8 [facility] Comment on above: Performed By: #### C MP3, LACT3, HEMDF, PT/AP ####[address] [place] Monocytes/100 WBC (Bld) 3.8 % Normal 2.0-10.0 [facility] Comment on above: Performed By: #### C MP3, LACT3, HEMDF, PT/AP ####[address] [place] Platelet mean volume (Bld) [Entitic vol] 7.7 fL Normal 7.4-10.4 [facility] Comment on above: Performed By: #### C MP3, LACT3, HEMDF, PT/AP ####[address] [place] Platelets (Bld) [#/Vol] 106 10*3/uL Low 140-440 [facility] Comment on above: Performed By: #### C MP3, LACT3, HEMDF, PT/AP ####[address] [place] RBC (Bld) [#/Vol] 3.30 10*6/uL Low 3.80-5.20 [facility] Comment on above: Performed By: #### C MP3, LACT3, HEMDF, PT/AP ####[address] [place] WBC (Bld) [#/Vol] 10.3 10*3/uL Normal 3.6-10.7 [facility] Comment on above: Performed By: #### C MP3, LACT3, HEMDF, PT/AP ####[address] [place] Abs Baso Cnt 0.1 10*3/uL Normal 0.0-0.[address] [facility] Comment on above: Performed By: #### C MP3, LACT3, ABG, PT/AP, HEMDF ####[address] [place] Abs Neutrophile Cnt 9.7 10*3/uL High 1.8-7.0 [facility] Comment on above: Performed By: #### C MP3, LACT3, ABG, PT/AP, HEMDF ####[address] [place] Basophils/100 WBC (Bld) 0.5 % Normal 0.0-2.0 [facility] Comment on above: Performed By: #### C MP3, LACT3, ABG, PT/AP, HEMDF ####[address] [place] Eosinophils (Bld) [#/Vol] 0.1 10*3/uL Normal 0.0-0.5 [facility] Comment on above: Performed By: #### C MP3, LACT3, ABG, PT/AP, HEMDF ####[place] [place], [place] Eosinophils/100 WBC (Bld) 0.7 % Low 1.0-6.0 [facility] Comment on above: Performed By: #### C MP3, LACT3, ABG, PT/AP, HEMDF ####[place] [place], [place] Erythrocyte distribution width (RBC) [Ratio] 15.5 % High 11.5-14.5 [facility] Comment on above: Performed By: #### C MP3, LACT3, ABG, PT/AP, HEMDF ####[id number] [place], [place] Granulocytes/100 WBC (Bld) 81.9 % High 40.0-80.0 [facility] Comment on above: Performed By: #### C MP3, LACT3, ABG, PT/AP, HEMDF ####[id number] [place], [place] Hematocrit (Bld) [Volume fraction] 32.4 % Low 35.0-47.0 [facility] Comment on above: Performed By: #### C MP3, LACT3, ABG, PT/AP, HEMDF ####[id number] [place], [place] Hemoglobin (Bld) [Mass/Vol] 10.3 g/dL Low 11.7-16.0 [facility] Comment on above: Result Comment: REPE ATED Performed By: #### C MP3, LACT3, ABG, PT/AP, HEMDF ####[address] [place], [place] Lymphocytes (Bld) [#/Vol] 1.8 10*3/uL Normal 1.0-4.3 [facility] Comment on above: Performed By: #### C MP3, LACT3, ABG, PT/AP, HEMDF ####[address] [place], [place] Lymphocytes/100 WBC (Bld) 15.5 % Low 20.0-40.0 [facility] Comment on above: Performed By: #### C MP3, LACT3, ABG, PT/AP, HEMDF ####[address] [place], [place] MCH (RBC) [Entitic mass] 28.2 pg Normal 26.0-34.0 [facility] Comment on above: Performed By: #### C MP3, LACT3, ABG, PT/AP, HEMDF ####[address] [place] MCHC 31.9 % Low 32.0-36.0 [facility] Comment on above: Performed By: #### C MP3, LACT3, ABG, PT/AP, HEMDF ####[address] [place] MCV (RBC) [Entitic vol] 88.6 fL Normal 79.0-98.0 [facility] Comment on above: Performed By: #### C MP3, LACT3, ABG, PT/AP, HEMDF ####[address] [place], [place] Monocytes (Bld) [#/Vol] 0.2 10*3/uL Normal 0.0-0.8 [facility] Comment on above: Performed By: #### C MP3, LACT3, ABG, PT/AP, HEMDF ####[address] Monocytes/100 WBC (Bld) 1.4 % Low 2.0-10.0 [facility] Comment on above: Performed By: #### C MP3, LACT3, ABG, PT/AP, HEMDF ####[address] [place], [place] Platelet mean volume (Bld) [Entitic vol] 7.6 fL Normal 7.4-10.4 [facility] Comment on above: Performed By: #### C MP3, LACT3, ABG, PT/AP, HEMDF ####[address] [place], [place] Platelets (Bld) [#/Vol] 119 10*3/uL Low 140-440 [facility] Comment on above: Result Comment: REPE ATED Performed By: #### C MP3, LACT3, ABG, PT/AP, HEMDF ####[address] [place] RBC (Bld) [#/Vol] 3.66 10*6/uL Low 3.80-5.20 [facility] Comment on above: Performed By: #### C MP3, LACT3, ABG, PT/AP, HEMDF ####[address] [place] WBC (Bld) [#/Vol] 11.9 10*3/uL High 3.6-10.7 [facility] Comment on above: Performed By: #### C MP3, LACT3, ABG, PT/AP, HEMDF ####[address] [place] Hepatic Functionon ALP [Catalytic activity/Vol] 56 U/L Normal 38-126 [facility] Comment on above: Performed By: #### B MP3M, ICA, LFT3, HEMDF, ABG ####[address] [place] ALT [Catalytic activity/Vol] 44 U/L High 0-34 [facility] Comment on above: Result Comment: The ALT test is performed by an updated assay method.Please note that the reference intervals have beenchanged and are now sex specific. Performed By: #### B MP3M, ICA, LFT3, HEMDF, ABG ####[address] [place], [place] AST [Catalytic activity/Vol] 108 U/L High 15-46 [facility] Comment on above: Performed By: #### B MP3M, ICA, LFT3, HEMDF, ABG ####[address] [place], [place] Bilirubin [Mass/Vol] 1.2 mg/dL Normal 0.2-1.3 [facility] Comment on above: Performed By: #### B MP3M, ICA, LFT3, HEMDF, ABG ####[address] [place] Bilirubin.indirect [Mass/Vol] 0.0 mg/dL Normal 0.0-0.3 [facility] Comment on above: Performed By: #### B MP3M, ICA, LFT3, HEMDF, ABG ####[address] [place] Protein [Mass/Vol] 4.4 g/dL Low 6.3-8.2 [facility] Comment on above: Performed By: #### B MP3M, ICA, LFT3, HEMDF, ABG ####[address] [place] Albumin [Mass/Vol] 2.3 g/dL Low 3.5-5.0 [facility] Comment on above: Performed By: #### B MP3M, ICA, LFT3, HEMDF, ABG ####[address] [place] Lactic Acidon 12-18-2020 Lactate [Moles/Vol] 1.4 mmol/L Normal 0.7-2.0 [facility] Comment on above: Performed By: #### C MP3, LACT3, HEMDF, PT/AP ####[address] [place] Lactate [Moles/Vol] 3.9 mmol/L Critically high 0.7-2.0 [facility] Comment on above: Result Comment: Crit [facility] Panic Lactate has fallen below the [facility] CCL/EDPanic Call Protocol. For [facility] ED patients ONLY the LactateLevels greater than 2.0 and less than or equal to 4.0 mmol/Lfall under the Panic Call Policy. Performed By: #### C MP3, LACT3, ABG, PT/AP, HEMDF ####[address] [place] Lactate [Moles/Vol] 4.7 mmol/L Critically high 0.7-2.0 [facility] Comment on above: Performed By: #### E TOH4, HEMOG, PT/AP, BMP3, LACT3, TROPN ####[address] [place], [place] Leukodepleted Red Cellson Leukodepleted Red Cells Normal [facility] Comment on above: Performed By: #### P RP, LRC, SDP, CR5 ####[address] [address]#### TSGL ####[facility] Leukodepleted Red Cells Normal [facility] Comment on above: Performed By: #### P RP, LRC, SDP, CR5 ####[address] [address]#### TSGL ####[facility] Op Noteon 12-18-2020 Op Note Normal [facility] PATHOGEN REDUCED LR PPHRon 1 02-18-2020 PATHOGEN REDUCED LR PPHR Normal [facility] Comment on above: Performed By: #### P RP, LRC, SDP, CR5 ####[address] [address]#### TSGL ####[facility] Protime AND APTTon aPTT Coag (Bld) [Time] 30.8 s High 20.0-30.5 [facility] Comment on above: Result Comment: NOTE : The therapeutic time for Heparin anticoagulation,based on Xa activity inhibition, is an APTT of 46-80seconds. Performed By: #### C MP3, LACT3, HEMDF, PT/AP ####[address] [place] [address] INR 1.2 High 0.9-1.1 [facility] Comment on above: Result Comment: Leno [...] By: #### C MP3, LACT3, HEMDF, PT/AP ####[address] [place] [address] PT Coag (PPP) [Time] 13.0 s High 9.0-12.0 [facility] Comment on above: Result Comment: . Performed By: #### C MP3, LACT3, HEMDF, PT/AP ####[facility] [employer] [id number] [place] aPTT Coag (Bld) [Time] 32.2 s High 20.0-30.5 [facility] Comment on above: Result Comment: NOTE : The therapeutic time for Heparin anticoagulation,based on Xa activity inhibition, is an APTT of 46-80seconds. Performed By: #### C MP3, LACT3, ABG, PT/AP, HEMDF ####[facility] [employer] [id number] [place] INR 1.3 High 0.9-1.1 [facility] Comment on above: Result Comment: Leno [...] #### C MP3, LACT3, ABG, PT/AP, HEMDF ####[facility] [employer] [id number] [place] PT Coag (PPP) [Time] 13.4 s High 9.0-12.0 [facility] Comment on above: Result Comment: . Performed By: #### C MP3, LACT3, ABG, PT/AP, HEMDF ####[facility] [employer] [id number] [place] aPTT Coag (Bld) [Time] 29.6 s Normal 20.0-30.5 [facility] Comment on above: Result Comment: NOTE : The therapeutic time for Heparin anticoagulation,based on Xa activity inhibition, is an APTT of 46-80seconds. Performed By: #### E TOH4, HEMOG, PT/AP, BMP3, LACT3, TROPN ####[facility] [employer] [id number] [place] INR 1.0 Normal 0.9-1.1 [facility] Comment on above: Result Comment: Leno [...] E TOH4, HEMOG, PT/AP, BMP3, LACT3, TROPN ####[address] PT Coag (PPP) [Time] 11.0 s Normal 9.0-12.0 [facility] Comment on above: Result Comment: . Performed By: #### E TOH4, HEMOG, PT/AP, BMP3, LACT3, TROPN ####[address] Single Donor Plasma (CP2D)on 12-18-2020 Single Donor Plasma (CP2D) Normal [facility] Comment on above: Performed By: #### P RP, LRC, SDP, CR5 ####[address] [address]#### TSGL ####[facility] Surgical Pathologyon 021 Surgical Pathology Normal [facility] TS GELon 12-18-2020 TS GEL ABO Group: A Rh, Gel: POS Antibody Screen Gel: NEG Normal [facility] Comment on above: Performed By: #### P RP, LRC, SDP, CR5 ####[address] [address]#### TSGL ####[facility] TYPE AND SCREENon 12-18-2020 ABO and Rh group Nom (Bld) Blood group A Rh(D) positive Normal [facility] Comment on above: Performed By: #### T S #### [facility] [address] [place] [address], ABO and Rh group Nom (Bld) No Previous Results Normal [facility] Comment on above: Performed By: #### T S #### [facility] [address] [place], [place], ABSC INT Negative Normal [facility] Comment on above: Result Comment: T&S TESTING PERFORMED BY RC Performed By: #### T S #### [facility] [address] [place], [place], Troponin Ion 12-18-2020 Troponin I.cardiac [Mass/Vol] 0.014 ng/mL Normal 0.000-0.034 [facility] Comment on above: Result Comment: . Performed By: #### E TOH4, HEMOG, PT/AP, BMP3, LACT3, TROPN ####[facility] [place] [address] HEPACon 08-05-2020 Hep A IgM Ab Non-Reactive Normal Non-Reactive [facility] ([place]) Comment on above: Performed By: #### C BC, FES, LIPID, ADIFF, TSH, BMP, MG, ANEU #### [address] [address] #### VIDH, GFR, T4, A1C, HEPAC #### [address] [address] Hep A IgM Ab Int Normal [facility] ([place]) Comment on above: Result Comment: No s erological evidence of a current Hepatitis A infection. See Interp Performed By: #### C BC, FES, LIPID, ADIFF, TSH, BMP, MG, ANEU #### [address] [address] #### VIDH, GFR, T4, A1C, HEPAC #### [address] [address] Hep B Core IgM Ab Non-Reactive Normal Non-Reactive [facility] ([place]) Comment on above: Performed By: #### C BC, FES, LIPID, ADIFF, TSH, BMP, MG, ANEU #### [address] [address] #### VIDH, GFR, T4, A1C, HEPAC #### [place] [id number] Hep B Core IgM Ab Int Normal [facility] ([place]) Comment on above: Result Comment: Samp les with a value < 0.80 Index are considered nonreactive (negative) for IgM antibodies to hepatitis B core antigen. See Interp Performed By: #### C BC, FES, LIPID, ADIFF, TSH, BMP, MG, ANEU #### [place] [address] #### VIDH, GFR, T4, A1C, HEPAC #### [place] [id number] Hep B Surf Ag Non-Reactive Normal Non-Reactive [facility] ([place]) Comment on above: Performed By: #### C BC, FES, LIPID, ADIFF, TSH, BMP, MG, ANEU #### [place] [address] #### VIDH, GFR, T4, A1C, HEPAC #### [place] [address] Hep C Ab Reactive Abnormal Non-Reactive [facility] ([place]) Comment on above: Performed By: #### C BC, FES, LIPID, ADIFF, TSH, BMP, MG, ANEU #### [place] [address] #### VIDH, GFR, T4, A1C, HEPAC #### [place] [address] Hep C Ab Int Normal [facility] ([place]) Comment on above: Result Comment: Reac tive: Samples with a value >/= 1.00 index are considered reactive for IgG antibodies to HCV. The presence of anti-HCV may be indicative of recent and/or past infection by Hepatitis C Virus. PATIENT MAY BE INFECTIONS. PLEASE INFORM INTERNAL AUDIT DIRECTOR. Supplemental testing for HCV RNA may detect the presence of active HCV infection. This result is a reportable disease Infection Control has been notified. See Interp Performed By: #### C BC, FES, LIPID, ADIFF, TSH, BMP, MG, ANEU #### [address] [address] #### VIDH, GFR, T4, A1C, HEPAC #### [address] [address] T4on 08-05-2020 T4 [Mass/Vol] 5.6 ug/dL Normal 4.5-10.9 [facility] ([place]) Comment on above: Result Comment: No te - New Reference Range in effect 19 Performed By: #### C BC, FES, LIPID, ADIFF, TSH, BMP, MG, ANEU #### [place] [address] #### VIDH, GFR, T4, A1C, HEPAC #### [place] [address] VIDHon 08-05-2020 Vit. D 25-Hydroxy 20.0 ng/mL Normal [facility] ([place]) Comment on above: Result Comment: Inte rpretive Values Based on Total 25(OH)D: Severe Deficiency <20 ng/mL Mild to Moderate Deficiency 20-30 ng/mL Optimum Levels 30-100 ng/mL Toxicity Possible >100 ng/mL Performed By: #### C BC, FES, LIPID, ADIFF, TSH, BMP, MG, ANEU #### [place] [address] #### VIDH, GFR, T4, A1C, HEPAC #### [address] [address] .Auto Diffon 08-04-2020 Basophil, Absolute 0.10 10 3/mcL Normal 0.00-0.19 [facility] ([place]) Comment on above: Performed By: #### C BC, FES, LIPID, ADIFF, TSH, BMP, MG, ANEU #### [place] [address] #### VIDH, GFR, T4, A1C, HEPAC #### [place] [address] Basophils/100 WBC (Bld) 0.7 % Normal 0.0-2.5 [facility] ([place]) Comment on above: Performed By: #### C BC, FES, LIPID, ADIFF, TSH, BMP, MG, ANEU #### [address] [address] #### VIDH, GFR, T4, A1C, HEPAC #### [address] [address] Eosinophil, Absolute 0.20 10 3/mcL Normal 0.00-0.40 [facility] ([place]) Comment on above: Performed By: #### C BC, FES, LIPID, ADIFF, TSH, BMP, MG, ANEU #### [address] [address] #### VIDH, GFR, T4, A1C, HEPAC #### [address] [address] Eosinophils/100 WBC (Bld) 2.6 % Normal 0.0-7.0 [facility] ([place]) Comment on above: Performed By: #### C BC, FES, LIPID, ADIFF, TSH, BMP, MG, ANEU #### [address] [address] #### VIDH, GFR, T4, A1C, HEPAC #### [address] [address] Lymphocyte, Absolute 2.30 10 3/mcL Normal 0.77-3.85 [facility] ([place]) Comment on above: Performed By: #### C BC, FES, LIPID, ADIFF, TSH, BMP, MG, ANEU #### [address] [address] #### VIDH, GFR, T4, A1C, HEPAC #### [address] [address] Lymphocytes/100 WBC (Bld) 26.3 % Normal 10.0-50.0 [facility] ([place]) Comment on above: Performed By: #### C BC, FES, LIPID, ADIFF, TSH, BMP, MG, ANEU #### [place] [address] #### VIDH, GFR, T4, A1C, HEPAC #### [address] [address] Monocyte, Absolute 0.20 10 3/mcL Normal 0.15-1.00 [facility] ([place]) Comment on above: Performed By: #### C BC, FES, LIPID, ADIFF, TSH, BMP, MG, ANEU #### [address] [address] #### VIDH, GFR, T4, A1C, HEPAC #### [address] [address] Monocytes/100 WBC (Bld) 2.8 % Normal 1.7-13.0 [facility] ([place]) Comment on above: Performed By: #### C BC, FES, LIPID, ADIFF, TSH, BMP, MG, ANEU #### [address] [address] #### VIDH, GFR, T4, A1C, HEPAC #### [address] [address] Neutrophils/100 WBC (Bld) 67.6 % Normal 37.0-80.0 [facility] ([place]) Comment on above: Performed By: #### C BC, FES, LIPID, ADIFF, TSH, BMP, MG, ANEU #### [address] [address] #### VIDH, GFR, T4, A1C, HEPAC #### [address] [address] .GFRon 08-04-2020 GFR 93 ml/min/1.73sqm Normal [facility] ([place]) Comment on above: Result Comment: GFR Population [...] LIPID, ADIFF, TSH, BMP, MG, ANEU #### [address] [address] #### VIDH, GFR, T4, A1C, HEPAC #### [address] [address] GFR Non- 77 ml/min/1.73sqm Normal [facility] ([place]) Comment on above: Result Comment: GFR Population [...] LIPID, ADIFF, TSH, BMP, MG, ANEU #### [address] [address] #### VIDH, GFR, T4, A1C, HEPAC #### [address] [address] .NEUABSon 08-04-2020 Neutrophil, Absolute 5.90 10 3/mcL Normal 2.85-6.16 [facility] ([place]) Comment on above: Performed By: #### C BC, FES, LIPID, ADIFF, TSH, BMP, MG, ANEU #### [address] [address] #### VIDH, GFR, T4, A1C, HEPAC #### [address] [address] A1Con 08-04-2020 HbA1c (Bld) [Mass fraction] 5.6 % Normal 4.3-6.4 [facility] ([place]) Comment on above: Performed By: #### C BC, FES, LIPID, ADIFF, TSH, BMP, MG, ANEU #### [address] [address] #### VIDH, GFR, T4, A1C, HEPAC #### [address] [address] BMPon 08-04-2020 BUN/Creatinine Ratio 18 ratio Normal 7-27 [facility] ([place]) Comment on above: Performed By: #### C BC, FES, LIPID, ADIFF, TSH, BMP, MG, ANEU #### [address] [address] #### VIDH, GFR, T4, A1C, HEPAC #### [address] [address] Calcium [Mass/Vol] 8.7 mg/dL Normal 8.4-10.2 [facility] ([place]) Comment on above: Performed By: #### C BC, FES, LIPID, ADIFF, TSH, BMP, MG, ANEU #### [address] [address] #### VIDH, GFR, T4, A1C, HEPAC #### [address] [address] Chloride [Moles/Vol] 99 mmol/L Normal 98-107 [facility] ([place]) Comment on above: Performed By: #### C BC, FES, LIPID, ADIFF, TSH, BMP, MG, ANEU #### [address] [address] #### VIDH, GFR, T4, A1C, HEPAC #### [address] [address] CO2 [Moles/Vol] 29 mmol/L Normal 22-29 [facility] ([place]) Comment on above: Performed By: #### C BC, FES, LIPID, ADIFF, TSH, BMP, MG, ANEU #### [address] [address] #### VIDH, GFR, T4, A1C, HEPAC #### [address] [address] Creatinine [Mass/Vol] 0.80 mg/dL Normal 0.55-1.02 [facility] ([place]) Comment on above: Performed By: #### C BC, FES, LIPID, ADIFF, TSH, BMP, MG, ANEU #### [address] [address] #### VIDH, GFR, T4, A1C, HEPAC #### [address] [address] Electrolyte Balance 9.0 mEq/L Normal [facility] ([place]) Comment on above: Performed By: #### C BC, FES, LIPID, ADIFF, TSH, BMP, MG, ANEU #### [place] [address] #### VIDH, GFR, T4, A1C, HEPAC #### [address] [address] Glucose [Mass/Vol] 78 mg/dL Normal 70-105 [facility] ([place]) Comment on above: Performed By: #### C BC, FES, LIPID, ADIFF, TSH, BMP, MG, ANEU #### [address] [address] #### VIDH, GFR, T4, A1C, HEPAC #### [address] [address] Potassium [Moles/Vol] 5.4 mmol/L High 3.5-5.1 [facility] ([place]) Comment on above: Performed By: #### C BC, FES, LIPID, ADIFF, TSH, BMP, MG, ANEU #### [address] [address] #### VIDH, GFR, T4, A1C, HEPAC #### [address] [address] Sodium [Moles/Vol] 137 mmol/L Normal 136-145 [facility] ([place]) Comment on above: Performed By: #### C BC, FES, LIPID, ADIFF, TSH, BMP, MG, ANEU #### [address] [address] #### VIDH, GFR, T4, A1C, HEPAC #### [address] [address] Urea nitrogen [Mass/Vol] 14 mg/dL Normal 7-18 [facility] ([place]) Comment on above: Performed By: #### C BC, FES, LIPID, ADIFF, TSH, BMP, MG, ANEU #### [place] [address] #### VIDH, GFR, T4, A1C, HEPAC #### [address] [address] CBCon 08-04-2020 Erythrocyte distribution width (RBC) [Ratio] 13.4 % Normal 11.5-14.5 [facility] ([place]) Comment on above: Performed By: #### C BC, FES, LIPID, ADIFF, TSH, BMP, MG, ANEU #### [address] [address] #### VIDH, GFR, T4, A1C, HEPAC #### [address] [address] Hematocrit (Bld) [Volume fraction] 41.3 % Normal 37.0-47.0 [facility] ([place]) Comment on above: Performed By: #### C BC, FES, LIPID, ADIFF, TSH, BMP, MG, ANEU #### [address] [address] #### VIDH, GFR, T4, A1C, HEPAC #### [address] [address] Hgb 14.1 G/dL Normal 12.0-16.0 [facility] ([place]) Comment on above: Performed By: #### C BC, FES, LIPID, ADIFF, TSH, BMP, MG, ANEU #### [place] [address] #### VIDH, GFR, T4, A1C, HEPAC #### [place] [address] MCH (RBC) [Entitic mass] 29.4 pg Normal 27.0-31.2 [facility] ([place]) Comment on above: Performed By: #### C BC, FES, LIPID, ADIFF, TSH, BMP, MG, ANEU #### [place] [address] #### VIDH, GFR, T4, A1C, HEPAC #### [place] [address] MCHC 34.1 G/dL Normal 33.0-37.0 [facility] ([place]) Comment on above: Performed By: #### C BC, FES, LIPID, ADIFF, TSH, BMP, MG, ANEU #### [place] [address] #### VIDH, GFR, T4, A1C, HEPAC #### [place] [address] MCV (RBC) [Entitic vol] 86.2 fL Normal 80.0-94.0 [facility] ([place]) Comment on above: Performed By: #### C BC, FES, LIPID, ADIFF, TSH, BMP, MG, ANEU #### [place] [address] #### VIDH, GFR, T4, A1C, HEPAC #### [place] [address] Platelet 281 10 3/mcL Normal 130-400 [facility] ([place]) Comment on above: Performed By: #### C BC, FES, LIPID, ADIFF, TSH, BMP, MG, ANEU #### [place] [address] #### VIDH, GFR, T4, A1C, HEPAC #### [place] [address] Platelet mean volume (Bld) [Entitic vol] 7.8 fL Normal 7.4-10.4 [facility] ([place]) Comment on above: Performed By: #### C BC, FES, LIPID, ADIFF, TSH, BMP, MG, ANEU #### [place] [address] #### VIDH, GFR, T4, A1C, HEPAC #### [place] [address] RBC 4.79 10 6/mcL Normal 4.20-5.40 [facility] ([place]) Comment on above: Performed By: #### C BC, FES, LIPID, ADIFF, TSH, BMP, MG, ANEU #### [place] [address] #### VIDH, GFR, T4, A1C, HEPAC #### [place] [address] WBC 8.80 10 3/mcL Normal 4.60-10.80 [facility] ([place]) Comment on above: Performed By: #### C BC, FES, LIPID, ADIFF, TSH, BMP, MG, ANEU #### [place] [address] #### VIDH, GFR, T4, A1C, HEPAC #### [address] 08-04-2020 Iron [Mass/Vol] 81 ug/dL Normal 50-170 [facility] ([place]) Comment on above: Performed By: #### C BC, FES, LIPID, ADIFF, TSH, BMP, MG, ANEU #### [place] [address] #### VIDH, GFR, T4, A1C, HEPAC #### [place] [address] Iron Sat 27 % Normal [facility] ([place]) Comment on above: Performed By: #### C BC, FES, LIPID, ADIFF, TSH, BMP, MG, ANEU #### [place] [address] #### VIDH, GFR, T4, A1C, HEPAC #### [address] [address] TIBC 296 mcg/dL Normal 250-450 [facility] ([place]) Comment on above: Performed By: #### C BC, FES, LIPID, ADIFF, TSH, BMP, MG, ANEU #### [address] [address] #### VIDH, GFR, T4, A1C, HEPAC #### [address] [address] LIPIDon 08-04-2020 Cholesterol [Mass/Vol] 219 mg/dL High 0-200 [facility] ([place]) Comment on above: Result Comment: Chol esterol Reference Interval: Less than 200 Desirable 200-239 Borderline high risk 240 and above High risk Performed By: #### C BC, FES, LIPID, ADIFF, TSH, BMP, MG, ANEU #### [address] [address] #### VIDH, GFR, T4, A1C, HEPAC #### [address] [address] Cholesterol in HDL [Mass/Vol] 35 mg/dL Low 40-60 [facility] ([place]) Comment on above: Performed By: #### C BC, FES, LIPID, ADIFF, TSH, BMP, MG, ANEU #### [address] [address] #### VIDH, GFR, T4, A1C, HEPAC #### [address] [address] Cholesterol in LDL [Mass/Vol] 139 mg/dL High 0-130 [facility] ([place]) Comment on above: Performed By: #### C BC, FES, LIPID, ADIFF, TSH, BMP, MG, ANEU #### [address] [address] #### VIDH, GFR, T4, A1C, HEPAC #### [address] [address] Triglyceride [Mass/Vol] 226 mg/dL High 0-150 [facility] ([place]) Comment on above: Result Comment: Trig lyceride Reference Interval: Less than 150 Normal 150-199 Borderline high risk 200-499 High risk 500 or higher Very high risk Performed By: #### C BC, FES, LIPID, ADIFF, TSH, BMP, MG, ANEU #### [address] [address] #### VIDH, GFR, T4, A1C, HEPAC #### [address] [address] MGon 08-04-2020 Magnesium [Mass/Vol] 2.1 mg/dL Normal 1.8-2.4 [facility] ([place]) Comment on above: Performed By: #### C BC, FES, LIPID, ADIFF, TSH, BMP, MG, ANEU #### [address] [address] #### VIDH, GFR, T4, A1C, HEPAC #### [address] [address] TSHon 08-04-2020 TSH Qn 5.07 m[IU]/L High 0.36-3.74 [facility] ([place]) Comment on above: Performed By: #### C BC, FES, LIPID, ADIFF, TSH, BMP, MG, ANEU #### [address] [address] #### VIDH, GFR, T4, A1C, HEPAC #### [address] [address] Anaerobic Cultureon 01-11-20 19 Anaerobic Culture No growth of anaerob es at 5 days. [place], [place] Test Performed by [address] [address] [place], [place] Anaerobic Culture No growth of anaerob es at 5 days. [place], [place] Test Performed by [address] [address] [place], [place] CBC auto differentialon 12-19 Absolute Baso # 0.1 10*3/uL 0 - 0.2 10*3/uL [place] Absolute Neut # 8.1 10*3/uL High 1.8 - 7 10*3/uL [place] Basophils/100 WBC (Bld) 0.8 % 0 - 2 % [place] Eosinophils (Bld) [#/Vol] 0.2 10*3/uL 0 - 0.5 10*3/uL [place] Eosinophils/100 WBC (Bld) 2.3 % 1 - 6 % [place] Erythrocyte distribution width (RBC) [Ratio] 13.2 % 11.5 - 14.5 % [place] Granulocytes/100 WBC (Bld) 78.9 % 40 - 80 % [place] Hematocrit (Bld) [Volume fraction] 22.6 % Low 35 - 47 % [place] Hemoglobin (Bld) [Mass/Vol] 7.6 g/dL Low 11.7 - 16 g/dL [place] Interpretation and review of laboratory results Abnormal [place] Lymphocytes (Bld) [#/Vol] 1.5 10*3/uL 1 - 4.3 10*3/uL [place] Lymphocytes/100 WBC (Bld) 14.1 % Low 20 - 40 % [place] MCH (RBC) [Entitic mass] 28.8 pg 26 - 34 pg [place] MCHC (RBC) [Mass/Vol] 33.5 % 32 - 36 % [place] MCV (RBC) [Entitic vol] 85.9 fL 79 - 98 fL [place] Monocytes (Bld) [#/Vol] 0.4 10*3/uL 0 - 0.8 10*3/uL [place] Monocytes/100 WBC (Bld) 3.9 % 2 - 10 % [place] Platelet mean volume (Bld) [Entitic vol] 6.3 fL Low 7.4 - 10.4 fL [place] Platelets (Bld) [#/Vol] 420 10*3/uL 140 - 440 10*3/uL [place] RBC (Bld) [#/Vol] 2.63 10*6/uL Low 3.8 - 5.2 10*6/uL [place] WBC (Bld) [#/Vol] 10.3 10*3/uL 3.6 - 10.7 10*3/uL [place] Test Performed by [facility], [address], [place], [place] [address] [place] Comprehensive Metabolic Pane corey 01-10-2019 Albumin [Mass/Vol] 2.4 g/dL Low 3.5 - 5 g/dL [place] ALP [Catalytic activity/Vol] 128 U/L High 38 - 126 U/L [place] ALT [Catalytic activity/Vol] 30 U/L 13 - 69 U/L [place] Anion gap [Moles/Vol] 3 mmol/L [place] AST [Catalytic activity/Vol] 19 U/L 15 - 46 U/L [place] Bilirubin Ql (U) 0.2 mg/dL 0.2 - 1.3 mg/dL [place] Calcium [Mass/Vol] 8.0 mg/dL Low 8.4 - 10. 4 mg/dL [place] Chloride [Moles/Vol] 108 mmol/L High 98 - 10 7 mmol/L [place] CO2 [Moles/Vol] 26 mmol/L 22 - 30 mmol/L [place] Creatinine [Mass/Vol] 1.22 mg/dL 0.52 - 1.25 mg/dL [place] EGFR IF NonAfrican [place] 47.3 mL/min >60 [place] Comment on above: Source- MDRD equatio n with creatinine calibration to IDMS(NKDEP) eGFR not recommended for drug dose adjustment GFR/1.73 sq M predicted among blacks MDRD (S/P/Bld) [Vol rate/Area] 57.3 mL/min/{1.73_m2} >60 [place] Glucose [Mass/Vol] 90 mg/dL 70 - 100 mg/dL [place] Interpretation and review of laboratory results Abnormal [place] Potassium [Moles/Vol] 3.8 mmol/L 3.5 - 5.1 mmol/L [place] Protein [Mass/Vol] 5.1 g/dL Low 6.3 - 8.2 g/dL [place] Sodium [Moles/Vol] 137 mmol/L 135 - 145 mmol/L [place] Urea nitrogen [Mass/Vol] 12 mg/dL 7 - 20 mg/dL [place] Test Performed by [facility], [address], [place], [place] [address] [place] Hemoglobin and Hematocrit, B loodon 01-10-2019 Hematocrit (Bld) [Volume fraction] 26.5 % Low 35 - 47 % [place] Hemoglobin (Bld) [Mass/Vol] 8.5 g/dL Low 11.7 - 16 g/dL [place] Interpretation and review of laboratory results Abnormal [place] Test Performed by [facility], [address], [place], [place] [address] [place] Otheron 01-10-2019 Blood Culture, Routine No growth at 5 days. [place] Test Performed by [facility], [address] [place] [id number] Specimen Source Comment:Blood [place] CBC auto differentialon 12-19 Absolute Baso # 0.1 10*3/uL 0 - 0.2 10*3/uL [place] Absolute Neut # 9.7 10*3/uL High 1.8 - 7 10*3/uL [place] Basophils/100 WBC (Bld) 0.7 % 0 - 2 % [place] Eosinophils (Bld) [#/Vol] 0.3 10*3/uL 0 - 0.5 10*3/uL [place] Eosinophils/100 WBC (Bld) 2.1 % 1 - 6 % [place] Erythrocyte distribution width (RBC) [Ratio] 13.3 % 11.5 - 14.5 % [place] Granulocytes/100 WBC (Bld) 78.2 % 40 - 80 % [place] Hematocrit (Bld) [Volume fraction] 24.6 % Low 35 - 47 % [place] Hemoglobin (Bld) [Mass/Vol] 8.1 g/dL Low 11.7 - 16 g/dL [place] Interpretation and review of laboratory results Abnormal [place] Lymphocytes (Bld) [#/Vol] 1.8 10*3/uL 1 - 4.3 10*3/uL [place] Lymphocytes/100 WBC (Bld) 14.7 % Low 20 - 40 % [place] MCH (RBC) [Entitic mass] 28.2 pg 26 - 34 pg [place] MCHC (RBC) [Mass/Vol] 32.8 % 32 - 36 % [place] MCV (RBC) [Entitic vol] 86.2 fL 79 - 98 fL [place] Monocytes (Bld) [#/Vol] 0.5 10*3/uL 0 - 0.8 10*3/uL [place] Monocytes/100 WBC (Bld) 4.3 % 2 - 10 % [place] Platelet mean volume (Bld) [Entitic vol] 6.6 fL Low 7.4 - 10.4 fL [place] Platelets (Bld) [#/Vol] 452 10*3/uL High 140 - 440 10*3/uL [place] RBC (Bld) [#/Vol] 2.86 10*6/uL Low 3.8 - 5.2 10*6/uL [place] WBC (Bld) [#/Vol] 12.5 10*3/uL High 3.6 - 10.7 10*3/uL [place] Test Performed by [facility], [address], [place], [place] [address] [place] Comprehensive Metabolic Pane corey 01-09-2019 Albumin [Mass/Vol] 2.5 g/dL Low 3.5 - 5 g/dL [place] ALP [Catalytic activity/Vol] 116 U/L 38 - 126 U/L [place] ALT [Catalytic activity/Vol] 26 U/L 13 - 69 U/L [place] Anion gap [Moles/Vol] 3 mmol/L [place] AST [Catalytic activity/Vol] 29 U/L 15 - 46 U/L [place] Bilirubin Ql (U) 0.3 mg/dL 0.2 - 1.3 mg/dL [place] Calcium [Mass/Vol] 8.0 mg/dL Low 8.4 - 10. 4 mg/dL [place] Chloride [Moles/Vol] 104 mmol/L 98 - 10 7 mmol/L [place] CO2 [Moles/Vol] 28 mmol/L 22 - 30 mmol/L [place] Creatinine [Mass/Vol] 1.29 mg/dL High 0.52 - 1.25 mg/dL [place] EGFR IF NonAfrican [place] 44.3 mL/min >60 [place], [place] Comment on above: Source- MDRD equatio n with creatinine calibration to IDMS(NKDEP) eGFR not recommended for drug dose adjustment GFR/1.73 sq M predicted among blacks MDRD (S/P/Bld) [Vol rate/Area] 53.7 mL/min/{1.73_m2} >60 [place] Glucose [Mass/Vol] 93 mg/dL 70 - 100 mg/dL [place] Interpretation and review of laboratory results Abnormal [place] Potassium [Moles/Vol] 3.8 mmol/L 3.5 - 5.1 mmol/L [place] Protein [Mass/Vol] 5.3 g/dL Low 6.3 - 8.2 g/dL [place] Sodium [Moles/Vol] 135 mmol/L 135 - 145 mmol/L [place] Urea nitrogen [Mass/Vol] 17 mg/dL 7 - 20 mg/dL [place] Test Performed by [facility], [address], [place], [place] [address] [place] CBC auto differentialon 11- Absolute Baso # 0.1 10*3/uL 0 - 0.2 10*3/uL [place] Absolute Neut # 14.1 10*3/uL High 1.8 - 7 10*3/uL [place] Basophils/100 WBC (Bld) 0.6 % 0 - 2 % [place] Eosinophils (Bld) [#/Vol] 0.1 10*3/uL 0 - 0.5 10*3/uL [place] Eosinophils/100 WBC (Bld) 0.3 % Low 1 - 6 % [place] Erythrocyte distribution width (RBC) [Ratio] 13.5 % 11.5 - 14.5 % [place] Granulocytes/100 WBC (Bld) 82.9 % High 40 - 80 % [place] Hematocrit (Bld) [Volume fraction] 24.7 % Low 35 - 47 % [place] Hemoglobin (Bld) [Mass/Vol] 8.3 g/dL Low 11.7 - 16 g/dL [place] Interpretation and review of laboratory results Abnormal [place] Lymphocytes (Bld) [#/Vol] 2.0 10*3/uL 1 - 4.3 10*3/uL [place] Lymphocytes/100 WBC (Bld) 11.6 % Low 20 - 40 % [place] MCH (RBC) [Entitic mass] 28.3 pg 26 - 34 pg [place] MCHC (RBC) [Mass/Vol] 33.7 % 32 - 36 % [place] MCV (RBC) [Entitic vol] 83.8 fL 79 - 98 fL [place] Monocytes (Bld) [#/Vol] 0.8 10*3/uL 0 - 0.8 10*3/uL [place] Monocytes/100 WBC (Bld) 4.6 % 2 - 10 % [place] Platelet mean volume (Bld) [Entitic vol] 6.7 fL Low 7.4 - 10.4 fL [place] Platelets (Bld) [#/Vol] 525 10*3/uL High 140 - 440 10*3/uL [place] RBC (Bld) [#/Vol] 2.95 10*6/uL Low 3.8 - 5.2 10*6/uL [place] WBC (Bld) [#/Vol] 17.1 10*3/uL High 3.6 - 10.7 10*3/uL [place] Test Performed by [facility], [address], [place], [place] [address] [place] Comprehensive Metabolic Pane corey 01-08-2019 Albumin [Mass/Vol] 2.6 g/dL Low 3.5 - 5 g/dL [place] ALP [Catalytic activity/Vol] 153 U/L High 38 - 126 U/L [place] ALT [Catalytic activity/Vol] 26 U/L 13 - 69 U/L [place] Anion gap [Moles/Vol] 6 mmol/L [place] AST [Catalytic activity/Vol] 23 U/L 15 - 46 U/L [place] Bilirubin Ql (U) 0.2 mg/dL 0.2 - 1.3 mg/dL [place] Calcium [Mass/Vol] 8.2 mg/dL Low 8.4 - 10. 4 mg/dL [place] Chloride [Moles/Vol] 103 mmol/L 98 - 10 7 mmol/L [place] CO2 [Moles/Vol] 27 mmol/L 22 - 30 mmol/L [place] Creatinine [Mass/Vol] 0.97 mg/dL 0.52 - 1.25 mg/dL [place] EGFR IF NonAfrican [place] >60.0 >60 mL/min [place] Comment on above: Source- MDRD equatio n with creatinine calibration to IDMS(NKDEP) eGFR not recommended for drug dose adjustment GFR/1.73 sq M predicted among blacks MDRD (S/P/Bld) [Vol rate/Area] mL/min/{1.73_m2} >60 mL/min [place] Glucose [Mass/Vol] 98 mg/dL 70 - 100 mg/dL [place] Interpretation and review of laboratory results Abnormal [place] Potassium [Moles/Vol] 4.5 mmol/L 3.5 - 5.1 mmol/L [place] Protein [Mass/Vol] 5.3 g/dL Low 6.3 - 8.2 g/dL [place] Sodium [Moles/Vol] 136 mmol/L 135 - 145 mmol/L [place] Urea nitrogen [Mass/Vol] 16 mg/dL 7 - 20 mg/dL [place] Test Performed by [facility], [address], [place], [place] [address] [place] Culture, Aerobic Bacteria wi th Gram Staion 01-08-2019 Aerobic Culture Staphylococcus aureus Abnormal [place] INR Coag (Bld) [Relative time] Moderate Positive for PBP2a (MRSA). Methicillin-resistant Staphylococcus aureus(MRSA) [place] INR Coag (Bld) [Relative time] Few polymorphonuclear cells/lpf. Few gram positive cocci. [place] Interpretation and review of laboratory results Abnormal [place] Test Performed by [facility], [address] [place] [address] [place] Tissue Cultureon 01-08-2019 INR Coag (Bld) [Relative time] Many Methicillin-resistant Staphylococcus aureus(MRSA) For identification and/or sensitivity, refer to culture collected on: 01/05/2019 at 1630 ([id number]). [place] INR Coag (Bld) [Relative time] Many polymorphonuclear cells/lpf. Moderate gram positive cocci. [place] Interpretation and review of laboratory results Abnormal [place] Tissue Cult/Smear, Aer Staphylococcus aureus Abnormal [place] Test Performed by [facility], [address] [place] [address] [place] C-Reactive Proteinon 019 CRP [Mass/Vol] 88.2 mg/L High 0 - 6 mg/L [place] Comment on above: . Interpretation and review of laboratory results Abnormal [place] Test Performed by [facility], [address], [place], [place] [address] [place] CBC auto differentialon 12-19 Absolute Baso # 0.1 10*3/uL 0 - 0.2 10*3/uL [place] Absolute Neut # 9.2 10*3/uL High 1.8 - 7 10*3/uL [place] Basophils/100 WBC (Bld) 1.2 % 0 - 2 % [place] Eosinophils (Bld) [#/Vol] 0.2 10*3/uL 0 - 0.5 10*3/uL [place] Eosinophils/100 WBC (Bld) 2.0 % 1 - 6 % [place] Erythrocyte distribution width (RBC) [Ratio] 13.2 % 11.5 - 14.5 % [place] Granulocytes/100 WBC (Bld) 74.5 % 40 - 80 % [place] Hematocrit (Bld) [Volume fraction] 23.4 % Low 35 - 47 % [place] Hemoglobin (Bld) [Mass/Vol] 8.0 g/dL Low 11.7 - 16 g/dL [place] Interpretation and review of laboratory results Abnormal [place] Lymphocytes (Bld) [#/Vol] 2.1 10*3/uL 1 - 4.3 10*3/uL [place] Lymphocytes/100 WBC (Bld) 17.0 % Low 20 - 40 % [place] MCH (RBC) [Entitic mass] 28.5 pg 26 - 34 pg [place] MCHC (RBC) [Mass/Vol] 34.1 % 32 - 36 % [place] MCV (RBC) [Entitic vol] 83.6 fL 79 - 98 fL [place] Monocytes (Bld) [#/Vol] 0.7 10*3/uL 0 - 0.8 10*3/uL [place] Monocytes/100 WBC (Bld) 5.3 % 2 - 10 % [place] Platelet mean volume (Bld) [Entitic vol] 7.1 fL Low 7.4 - 10.4 fL [place] Platelets (Bld) [#/Vol] 360 10*3/uL 140 - 440 10*3/uL [place] RBC (Bld) [#/Vol] 2.80 10*6/uL Low 3.8 - 5.2 10*6/uL [place] WBC (Bld) [#/Vol] 12.3 10*3/uL High 3.6 - 10.7 10*3/uL [place] Test Performed by [facility], [address], [place], [place] [address] [place] Comprehensive Metabolic Pane corey 01-07-2019 Albumin [Mass/Vol] 2.4 g/dL Low 3.5 - 5 g/dL [place] ALP [Catalytic activity/Vol] 141 U/L High 38 - 126 U/L [place] ALT [Catalytic activity/Vol] 29 U/L 13 - 69 U/L [place] Anion gap [Moles/Vol] 2 mmol/L [place] AST [Catalytic activity/Vol] 15 U/L 15 - 46 U/L [place] Bilirubin Ql (U) 0.2 mg/dL 0.2 - 1.3 mg/dL [place] Calcium [Mass/Vol] 8.1 mg/dL Low 8.4 - 10. 4 mg/dL [place] Chloride [Moles/Vol] 102 mmol/L 98 - 10 7 mmol/L [place] CO2 [Moles/Vol] 29 mmol/L 22 - 30 mmol/L [place] Creatinine [Mass/Vol] 0.65 mg/dL 0.52 - 1.25 mg/dL [place] EGFR IF NonAfrican [place] >60.0 >60 mL/min [place] Comment on above: Source- MDRD equatio n with creatinine calibration to IDMS(NKDEP) eGFR not recommended for drug dose adjustment GFR/1.73 sq M predicted among blacks MDRD (S/P/Bld) [Vol rate/Area] mL/min/{1.73_m2} >60 mL/min [place] Glucose [Mass/Vol] 77 mg/dL 70 - 100 mg/dL [place] Interpretation and review of laboratory results Abnormal [place] Potassium [Moles/Vol] 4.3 mmol/L 3.5 - 5.1 mmol/L [place] Protein [Mass/Vol] 4.9 g/dL Low 6.3 - 8.2 g/dL [place] Sodium [Moles/Vol] 134 mmol/L Low 135 - 145 mmol/L [place] Urea nitrogen [Mass/Vol] 17 mg/dL 7 - 20 mg/dL [place] Test Performed by [facility], [address], [place], [place] [address] [place] Hepatitis Panel, Acuteon HAV IgM IA Qn (S) NOT DETECTED Not-Detect ed NA [place] Hep B Core Ab, IgM NOT DETECTED Not-Detec rosanna NA [place] Hepatitis B Surface Ag NOT DETECTED Not-Detected NA [place] Hepatitis C Ab DETECTED Abnormal Not-Detected NA [place] Comment on above: Patients with DETECT ED Hepatitis C Ab results should have a new specimen submitted for supplemental testing with a Hepatitis C Quantitative RNA assay (viral load), if clinically indicated. Interpretation and review of laboratory results Abnormal [place] Test Performed by [facility], [address] [place] [address] [place] Manual Differentialon 2018 Absolute Baso # 0.1 10*3/uL 0 - 0.2 10*3/uL [place] Absolute Eos # 0.2 10*3/uL 0 - 0.5 10*3/uL [place] Absolute Lymph # 0.9 10*3/uL Low 1.1 - 4.5 10*3/uL [place] Absolute Rains # 0.9 10*3/uL 0.2 - 1.1 10*3/uL [place] Absolute Neut # 9.7 10*3/uL High 2.2 - 8.2 10*3/uL [place] Bands 3 % 0 - 3 % [facility] [place], [place] Basophils 1 % 0 - 2 % [place] Clumped Platelets see below [place] Comment on above: Platelet clumping no rosanna; this may be corrected by using Na Citrate. Eosinophils 2 % 1 - 6 % [place] Interpretation and review of laboratory results Abnormal [place] Lymphocytes 7 % Low 20 - 40 % [place] Metamyelocytes 4 % Abnormal <1 [place] Monocytes 7 % 2 - 10 % [place] RBC morphology finding Nom (Bld) Normal [place] Seg Neutrophils 76 % 40 - 80 % [place] TOTAL CELLS COUNTED 100 [place] Test Performed by [facility], [address], [place], [place] [address] [place] Procalcitoninon 01-07-2019 Interpretation and review of laboratory results Abnormal [place] Procalcitonin 0.1 ng/mL Abnormal <0.10 [place] Sodium [Moles/Vol] See Below [place] Comment on above: PCT <0.50 = Low risk of severe sepsis and/or septic shock. PCT >2.00 = High risk of severe sepsis and/or septic shock. Test Performed by [facility], [address] [place] [address] [place] Vancomycin, Troughon 019 Interpretation and review of laboratory results Abnormal [place] Vancomycin Tr 9.2 ug/mL Low 15 - 20 ug/mL [place] Comment on above: . Test Performed by [facility], [address], [place], [place] [address] [place] Basic Metabolic Panel w/ Ref ruslan to MGon 01-06-2019 Anion gap [Moles/Vol] 4 mmol/L [place] Calcium [Mass/Vol] 8.4 mg/dL 8.4 - 10. 4 mg/dL [place] Chloride [Moles/Vol] 102 mmol/L 98 - 10 7 mmol/L [place] CO2 [Moles/Vol] 28 mmol/L 22 - 30 mmol/L [place] Creatinine [Mass/Vol] 0.55 mg/dL 0.52 - 1.25 mg/dL [place] EGFR IF NonAfrican [place] >60.0 >60 mL/min [place] Comment on above: Source- MDRD equatio n with creatinine calibration to IDMS(NKDEP) eGFR not recommended for drug dose adjustment GFR/1.73 sq M predicted among blacks MDRD (S/P/Bld) [Vol rate/Area] mL/min/{1.73_m2} >60 mL/min [place] Glucose [Mass/Vol] 113 mg/dL High 70 - 100 mg/dL [place] Interpretation and review of laboratory results Abnormal [place] Potassium [Moles/Vol] 4.8 mmol/L 3.5 - 5.1 mmol/L [place] Sodium [Moles/Vol] 134 mmol/L Low 135 - 145 mmol/L [place] Urea nitrogen [Mass/Vol] 14 mg/dL 7 - 20 mg/dL [place] Test Performed by [facility], [address], [place], [place] [address] [place] CBC auto differentialon 11-2 Absolute Baso # 0.0 10*3/uL 0 - 0.2 10*3/uL [place] Absolute Neut # 9.0 10*3/uL High 1.8 - 7 10*3/uL [place] Basophils/100 WBC (Bld) 0.3 % 0 - 2 % [place] Eosinophils (Bld) [#/Vol] 0.0 10*3/uL 0 - 0.5 10*3/uL [place] Eosinophils/100 WBC (Bld) 0.1 % Low 1 - 6 % [place] Erythrocyte distribution width (RBC) [Ratio] 12.9 % 11.5 - 14.5 % [place] Granulocytes/100 WBC (Bld) 85.6 % High 40 - 80 % [place] Hematocrit (Bld) [Volume fraction] 34.7 % Low 35 - 47 % [place] Hemoglobin (Bld) [Mass/Vol] 11.8 g/dL 11.7 - 16 g/dL [place] Interpretation and review of laboratory results Abnormal [place] Lymphocytes (Bld) [#/Vol] 0.8 10*3/uL Low 1 - 4.3 10*3/uL [place] Lymphocytes/100 WBC (Bld) 8.0 % Low 20 - 40 % [place] MCH (RBC) [Entitic mass] 28.6 pg 26 - 34 pg [place] MCHC (RBC) [Mass/Vol] 33.9 % 32 - 36 % [place] MCV (RBC) [Entitic vol] 84.3 fL 79 - 98 fL [place] Monocytes (Bld) [#/Vol] 0.6 10*3/uL 0 - 0.8 10*3/uL [place] Monocytes/100 WBC (Bld) 6.0 % 2 - 10 % [place] Platelet mean volume (Bld) [Entitic vol] 7.3 fL Low 7.4 - 10.4 fL [place] Platelets (Bld) [#/Vol] 254 10*3/uL 140 - 440 10*3/uL [place] RBC (Bld) [#/Vol] 4.12 10*6/uL 3.8 - 5.2 10*6/uL [place] WBC (Bld) [#/Vol] 10.5 10*3/uL 3.6 - 10.7 10*3/uL [place] Test Performed by [facility], [address], [place], [place] [address] [place] Add On Lab Teston 01-05-2019 Sodium [Moles/Vol] Accepted [place] Comment on above: Specimen available & acceptable for analysis. Test Performed by [facility], [address], [place], [place] [address] [place] C-Reactive Proteinon 019 CRP [Mass/Vol] 255.1 mg/L High 0 - 6 mg/L [place] Comment on above: . Interpretation and review of laboratory results Abnormal [place] Test Performed by [facility], [address], [place], [place] [address] [place] UPPER EXTREMITY RIGHT W C Nicki 01-05-2019 [facility], [facility] Incoming Radiology Results From [facility] - 01/05/2019 3:14 PM EST Patient Name: DEIDRA DE LA CRUZ ---CT--- Exam Date/Time 01/05/2019 13:32:[address] Up Ext w/ Contrast Right Ordering Physician MALI COOPER DANIEL M Accession Number [id number] CPT4 Codes 70678 (), Q9967 (CT ISOVUE [id number] ) Reason For Exam Extensive cellulitis and [...] HARLAN Transcribed Date and Time: 01/05/2019 3:14 [place] Patient Name: DEIDRA GOLDSTEIN ---CT--- Exam Date/Time 01/05/2019 13:32:[address] Up Ext w/ Contrast Right Ordering Physician MALI COOPER DANIEL M Accession Number [id number] CPT4 Codes 27665 (), Q9967 (CT ISOVUE [id number] ) Reason For Exam Extensive cellulitis and [...] HARLAN Transcribed Date and Time: 01/05/2019 3:14 [place] Comprehensive Metabolic Pane corey 01-05-2019 Albumin [Mass/Vol] 3.2 g/dL Low 3.5 - 5 g/dL [place] ALP [Catalytic activity/Vol] 290 U/L High 38 - 126 U/L [place] ALT [Catalytic activity/Vol] 33 U/L 13 - 69 U/L [place] Anion gap [Moles/Vol] 8 mmol/L [place] AST [Catalytic activity/Vol] 23 U/L 15 - 46 U/L [place] Bilirubin Ql (U) 0.7 mg/dL 0.2 - 1.3 mg/dL [place] Calcium [Mass/Vol] 8.7 mg/dL 8.4 - 10. 4 mg/dL [place] Chloride [Moles/Vol] 96 mmol/L Low 98 - 10 7 mmol/L [place] CO2 [Moles/Vol] 28 mmol/L 22 - 30 mmol/L [place] Creatinine [Mass/Vol] 0.57 mg/dL 0.52 - 1.25 mg/dL [place] EGFR IF NonAfrican [place] >60.0 >60 mL/min [place] Comment on above: Source- MDRD equatio n with creatinine calibration to IDMS(NKDEP) eGFR not recommended for drug dose adjustment GFR/1.73 sq M predicted among blacks MDRD (S/P/Bld) [Vol rate/Area] mL/min/{1.73_m2} >60 mL/min [place] Glucose [Mass/Vol] 105 mg/dL High 70 - 100 mg/dL [place] Interpretation and review of laboratory results Abnormal [place] Potassium [Moles/Vol] 4.0 mmol/L 3.5 - 5.1 mmol/L [place] Protein [Mass/Vol] 6.4 g/dL 6.3 - 8.2 g/dL [place] Sodium [Moles/Vol] 132 mmol/L Low 135 - 145 mmol/L [place] Urea nitrogen [Mass/Vol] 10 mg/dL 7 - 20 mg/dL [place] Test Performed by [facility], [address], [place], [place] [id number] [place] [address] HCG Qualitative, Serumon hCG Qual Negative m[IU]/mL [place] Comment on above: REF RANGE: Negative .... < 3 Questionable Rpt 48-72 Hr Positive ..... > 10 Test Performed by [facility], [address] [place], [place] [id number] [place] [address] Hemogram (CBC) w/Auto Diffon 01-05-2019 Absolute Baso # 0.1 10*3/uL 0 - 0.2 10*3/uL [place] Absolute Neut # 12.5 10*3/uL High 1.8 - 7 10*3/uL [place] Basophils/100 WBC (Bld) 0.4 % 0 - 2 % [place] Eosinophils (Bld) [#/Vol] 0.1 10*3/uL 0 - 0.5 10*3/uL [place] Eosinophils/100 WBC (Bld) 0.6 % Low 1 - 6 % [place] Erythrocyte distribution width (RBC) [Ratio] 13.2 % 11.5 - 14.5 % [place] Granulocytes/100 WBC (Bld) 84.1 % High 40 - 80 % [place] Hematocrit (Bld) [Volume fraction] 34.7 % Low 35 - 47 % [place] Hemoglobin (Bld) [Mass/Vol] 11.8 g/dL 11.7 - 16 g/dL [place] Interpretation and review of laboratory results Abnormal [place] Lymphocytes (Bld) [#/Vol] 1.3 10*3/uL 1 - 4.3 10*3/uL [place] Lymphocytes/100 WBC (Bld) 8.7 % Low 20 - 40 % [place] MCH (RBC) [Entitic mass] 28.2 pg 26 - 34 pg [place] MCHC (RBC) [Mass/Vol] 34.0 % 32 - 36 % [place] MCV (RBC) [Entitic vol] 83.1 fL 79 - 98 fL [place] Monocytes (Bld) [#/Vol] 0.9 10*3/uL High 0 - 0.8 10*3/uL [place] Monocytes/100 WBC (Bld) 6.2 % 2 - 10 % [place] Platelet mean volume (Bld) [Entitic vol] 7.3 fL Low 7.4 - 10.4 fL [place] Platelets (Bld) [#/Vol] 325 10*3/uL 140 - 440 10*3/uL [place] RBC (Bld) [#/Vol] 4.17 10*6/uL 3.8 - 5.2 10*6/uL [place] WBC (Bld) [#/Vol] 14.8 10*3/uL High 3.6 - 10.7 10*3/uL [place] Test Performed by [facility], [address], [place], [place] [id number] [place] [address] Lactic Acid, Plasmaon 2018 Lactate [Moles/Vol] 1.2 mmol/L 0.7 - 2 mmol/L [place], [place] Test Performed by [facility], [address], [place], [place] [address] [facility], [place] Vital Signs Date Time Vital Sign Value Performing Clinician Facility 05-12-2024 15:20-0400 Body temperature 97.9 [degF] Dinah Noe MD Work Phone: [facility] 05-12-2024 15:20-0400 Diastolic blood pressure 72 mm[Hg] Dinah Noe MD Work Phone: [facility] 05-12-2024 15:20-0400 Heart rate 62 /min Dinah Noe MD Work Phone: [facility] 05-12-2024 15:20-0400 Respiratory rate 17 /min Dinah Noe MD Work Phone: [facility] 05-12-2024 15:20-0400 SaO2% (BldA) [Mass fraction] 96 % Dinah Noe MD Work Phone: [facility] 05-12-2024 15:20-0400 Systolic blood pressure 120 mm[Hg] Dinah Noe MD Work Phone: [facility] 05-05-2024 12:53-0400 Body height 167.6 cm Dinah Noe MD Work Phone: [facility] 05-05-2024 12:53-0400 Body mass index (BMI) [Ratio] 36.79 kg/m2 Dinah Noe MD Work Phone: [facility] 05-05-2024 12:53-0400 Body weight 103.4 kg Dinah Noe MD Work Phone: [facility] 04-25-2024 18:00-0400 Body temperature 98.1 [degF] Dr. Francisco Elmore MD Work Phone: [facility] 04-25-2024 18:00-0400 Diastolic blood pressure 85 mm[Hg] Dr. Francisco Elmore MD Work Phone: [facility] 04-25-2024 18:00-0400 Heart rate 69 /min Dr. Francisco Elmore MD Work Phone: [facility] 04-25-2024 18:00-0400 Respiratory rate 17 /min Dr. Francisco Elmore MD Work Phone: [facility] 04-25-2024 18:00-0400 SaO2% (BldA) [Mass fraction] 98 % Dr. Francisco Elmore MD Work Phone: [facility] 04-25-2024 18:00-0400 Systolic blood pressure 152 mm[Hg] Dr. Francisco Elmore MD Work Phone: [facility] 04-25-2024 15:03-0400 Body height 167.[address] Francisco Elmore MD Work Phone: [facility] 04-25-2024 15:03-0400 Body mass index (BMI) [Ratio] 34.8 kg/m2 Dr. Francisco Elmore MD Work Phone: [facility] 04-25-2024 15:03-0400 Body weight 97.[address] Francisco Elmore MD Work Phone: [facility] 04-01-2024 11:27-0500 Body temperature 97.3 [degF] Filippo Mark MD Work Phone: [facility] 04-01-2024 11:27-0500 Diastolic blood pressure 83 mm[Hg] Filippo Mark MD Work Phone: [facility] 04-01-2024 11:27-0500 Heart rate 82 /min Filippo Mark MD Work Phone: [facility] 04-01-2024 11:27-0500 Respiratory rate 18 /min Filippo Mark MD Work Phone: [facility] 04-01-2024 11:27-0500 SaO2% (BldA) [Mass fraction] 97 % Filippo Mark MD Work Phone: [phone] [address] 04-01-2024 11:27-0500 Systolic blood pressure 134 mm[Hg] Filippo Mark MD Work Phone: [facility] 03-25-2024 23:59-0500 Body height 165.1 cm Filippo Mark MD Work Phone: [facility] 03-25-2024 23:59-0500 Body mass index (BMI) [Ratio] 30.79 kg/m2 Filippo Mark MD Work Phone: [facility] 03-25-2024 23:59-0500 Body weight 83.92 kg Filippo Mark MD Work Phone: [facility] 03-25-2024 20:59-0500 Body temperature 37 Filippo Mark MD Work Phone: [facility] Comment on above: NOTE: Patient Results are Not Corrected for Temperature 03-25-2024 20:59-0500 SaO2% (BldA) [Mass fraction] 99 % Filippo Mark MD Work Phone: [facility] 03-25-2024 20:57-0500 Body temperature 37.0 degrees Celsius [facility] Comment on above: Result Comment: NOTE: Patient Results ar e Not Corrected for Temperature Performed By: #### [id number] ####JANETH Galo ([id number])[facility] ([facility])[address] [place] [address] 03-25-2024 20:57-0500 SaO2% (BldA) [Mass fraction] 99 % [facility] Comment on above: Performed By: #### [id number] ####JANETH Galo ([id number])[facility] ([facility])[address] [place] [address] 03-25-2024 16:36-0500 Body temperature 37 Filippo Mark MD Work Phone: [facility] 03-25-2024 16:36-0500 SaO2% (BldA) [Mass fraction] 98 % Filippo Mark MD Work Phone: [facility] 03-25-2024 15:55-0500 Body temperature 37.0 degrees Celsius [facility] Comment on above: Performed By: #### [id number] ####JANETH Galo ([id number])[facility] ([facility])[address] [place] [address] 03-25-2024 15:55-0500 SaO2% (BldA) [Mass fraction] 98 % [facility] Comment on above: Performed By: #### [id number] ####JANETH Galo ([id number])[facility] ([facility])[address] [place] [address] 03-25-2024 14:28-0500 Body temperature 37 Filippo Mark MD Work Phone: [facility] 03-25-2024 14:28-0500 SaO2% (BldA) [Mass fraction] 98 % Filippo Mark MD Work Phone: [facility] 03-25-2024 14:08-0500 Body temperature 37.0 degrees Celsius [facility] Comment on above: Performed By: #### [id number] ####JANETH Galo ([id number])[facility] ([facility])[address] [place] [address] 03-25-2024 14:08-0500 SaO2% (BldA) [Mass fraction] 98 % [facility] Comment on above: Performed By: #### [id number] ####JANETH Galo ([id number])[facility] ([facility])[address] [place] [address] 03-25-2024 12:23-0500 Body temperature 37 Filippo Mark MD Work Phone: [facility] 03-25-2024 12:23-0500 SaO2% (BldA) [Mass fraction] 99 % Filippo Mark MD Work Phone: [facility] 03-25-2024 11:32-0500 Body temperature 37 Filippo Mark MD Work Phone: [facility] 03-25-2024 11:32-0500 SaO2% (BldA) [Mass fraction] 99 % Filippo Mark MD Work Phone: [facility] 03-25-2024 10:31-0500 Body temperature 37.0 degrees Celsius [facility] Comment on above: Performed By: #### [id number] ####JANETH Galo ([id number])[facility] ([facility])[address] [place] [address] 03-25-2024 10:31-0500 SaO2% (BldA) [Mass fraction] 99 % [facility] Comment on above: Performed By: #### [id number] ####JANETH Galo ([id number])[facility] ([facility])[address] [place] [address] 03-25-2024 09:31-0500 Body temperature 37 Filippo Mark MD Work Phone: [facility] 03-25-2024 09:31-0500 SaO2% (BldA) [Mass fraction] 99 % Filippo Mark MD Work Phone: [facility] 03-25-2024 09:15-0500 Body temperature 37 Filippo Mark MD Work Phone: [facility] 03-25-2024 09:15-0500 SaO2% (BldA) [Mass fraction] 99 % Filippo Mark MD Work Phone: [facility] Comment on above: Performed By: #### [id number] ####JANETH Galo ([id number])[facility] ([facility])[address] [place], [place] [id number] 03-25-2024 09:13-0500 Body temperature 37.0 degrees Celsius [facility] Comment on above: Performed By: #### [id number] ####JANETH Galo ([id number])[facility] ([facility])[address] [place] [address] 03-25-2024 09:13-0500 SaO2% (BldA) [Mass fraction] 99 % [facility] Comment on above: Performed By: #### [id number] ####JANETH Galo ([id number])[facility] ([facility])[address] [place] [address] 03-25-2024 08:50-0500 Body temperature 37.0 degrees Celsius [facility] Comment on above: Performed By: #### [id number] ####JANETH Galo ([id number])[facility] ([facility])[address] [place], [place] [id number] 03-25-2024 08:50-0500 SaO2% (BldA) [Mass fraction] 99 % [facility] Comment on above: Performed By: #### [id number] ####JANETH Galo ([id number])[facility] ([facility])[address] [place], [place] [id number] 03-18-2024 07:40-0500 Body temperature 97.3 [degF] Cruz Goodman MD Work Phone: [facility] 03-18-2024 07:40-0500 Diastolic blood pressure 82 mm[Hg] Cruz Goodman MD Work Phone: [facility] 03-18-2024 07:40-0500 Heart rate 77 /min Cruz Goodman MD Work Phone: [facility] 03-18-2024 07:40-0500 Respiratory rate 16 /min Cruz Goodman MD Work Phone: [facility] 03-18-2024 07:40-0500 SaO2% (BldA) [Mass fraction] 98 % Cruz Goodman MD Work Phone: [facility] 03-18-2024 07:40-0500 Systolic blood pressure 166 mm[Hg] Cruz Goodman MD Work Phone: [facility] 03-13-2024 07:53-0500 Body mass index (BMI) [Ratio] 34.86 kg/m2 Cruz Goodman MD Work Phone: [facility] 03-13-2024 07:53-0500 Body weight 97.98 kg Cruz Goodman MD Work Phone: [facility] 01-16-2024 15:31-0500 Body temperature 97.5 [degF] Cruz Goodman MD Work Phone: [facility] 01-16-2024 15:31-0500 Diastolic blood pressure 66 mm[Hg] Cruz Goodman MD Work Phone: [facility] 01-16-2024 15:31-0500 Heart rate 79 /min Cruz Goodman MD Work Phone: [facility] 01-16-2024 15:31-0500 Respiratory rate 18 /min Cruz Goodman MD Work Phone: [facility] 01-16-2024 15:31-0500 SaO2% (BldA) [Mass fraction] 95 % Cruz Goodman MD Work Phone: [facility] 01-16-2024 15:31-0500 Systolic blood pressure 101 mm[Hg] Cruz Goodman MD Work Phone: [facility] 01-09-2024 06:40-0500 Body height 167.6 cm Cruz Goodman MD Work Phone: [facility] 01-09-2024 06:40-0500 Body mass index (BMI) [Ratio] 29.86 kg/m2 Cruz Goodman MD Work Phone: [facility] 01-09-2024 06:40-0500 Body weight 83.92 kg Cruz Goodman MD Work Phone: [facility] 11-18-2023 10:34-0400 Body height 165.1 cm Bijan Elmore MD Work Phone: [facility] 11-18-2023 10:34-0400 Diastolic blood pressure 83 mm[Hg] Bijan Elmore MD Work Phone: [facility] 11-18-2023 10:34-0400 Heart rate 82 /min Bijan Elmore MD Work Phone: [facility] 11-18-2023 10:34-0400 SaO2% (BldA) [Mass fraction] 95 % Bijan Elmore MD Work Phone: [facility] 11-18-2023 10:34-0400 Systolic blood pressure 128 mm[Hg] Bijan Elmore MD Work Phone: [facility] 11-28-2022 13:13-0400 Body height 167.[address] Francisco Elmore Work Phone: [facility] 11-28-2022 13:13-0400 Body mass index (BMI) [Ratio] 32.1 kg/m2 Dr. Francisco Elmore Work Phone: [facility] 11-28-2022 13:13-0400 Body temperature 98.2 [degF] Dr. Francisco Elmore Work Phone: [facility] 11-28-2022 13:13-0400 Body weight 90.[address] Francisco Elmore Work Phone: [facility] 11-28-2022 13:13-0400 Diastolic blood pressure 89 mm[Hg] Dr. Francisco Elmore Work Phone: [facility] 11-28-2022 13:13-0400 Heart rate 83 /min Dr. Francisco Elmore Work Phone: [facility] 11-28-2022 13:13-0400 Respiratory rate 16 /min Dr. Francisco Elmore Work Phone: [facility] 11-28-2022 13:13-0400 Systolic blood pressure 151 mm[Hg] Dr. Francisco Elmore Work Phone: [facility] 09-26-2022 14:32-0400 Body height 165.1 cm Bijan Elmore MD Work Phone: [facility] 09-26-2022 14:32-0400 Diastolic blood pressure 83 mm[Hg] Bijan Elmore MD Work Phone: [facility] 09-26-2022 14:32-0400 Heart rate 69 /min Bijan Elmore MD Work Phone: [facility] 09-26-2022 14:32-0400 SaO2% (BldA) [Mass fraction] 96 % Bijan Elmore MD Work Phone: [facility] 09-26-2022 14:32-0400 Systolic blood pressure 149 mm[Hg] Bijan Elmore MD Work Phone: [facility] 04-17-2022 14:36-0500 Body height 165.1 cm Cass Guzman MD Work Phone: [facility] 04-17-2022 14:36-0500 Body mass index (BMI) [Ratio] 29.95 kg/m2 Cass Guzman MD Work Phone: [facility] 04-17-2022 14:36-0500 Body weight 81.65 kg Cass Guzman MD Work Phone: [facility] 04-03-2022 10:16-0500 Body height 165.1 cm Jarvis Almonte MD Work Phone: [facility] 04-03-2022 10:16-0500 Body mass index (BMI) [Ratio] 29.95 kg/m2 Jarvis Almonte MD Work Phone: [facility] 04-03-2022 10:16-0500 Body temperature 97.9 [degF] Jarvis Almonte MD Work Phone: [facility] 04-03-2022 10:16-0500 Body weight 81.65 kg Jarvis Almonte MD Work Phone: [facility] 04-03-2022 10:16-0500 Diastolic blood pressure 100 mm[Hg] Jarvis Almonte MD Work Phone: [facility] 04-03-2022 10:16-0500 Heart rate 72 /min Jarvis Almonte MD Work Phone: [facility] 04-03-2022 10:16-0500 SaO2% (BldA) [Mass fraction] 94 % Jarvis Almonte MD Work Phone: [facility] 04-03-2022 10:16-0500 Systolic blood pressure 130 mm[Hg] Jarvis Almonte MD Work Phone: [facility] 03-15-2022 09:35-0500 Diastolic blood pressure 84 mm[Hg] Pacheco Tl DO Work Phone: [facility] 03-15-2022 09:35-0500 Heart rate 75 /min Pacheco Tl DO Work Phone: [facility] 03-15-2022 09:35-0500 Respiratory rate 20 /min Pacheco Tl DO Work Phone: [facility] 03-15-2022 09:35-0500 Systolic blood pressure 138 mm[Hg] Pacheco Tl DO Work Phone: [facility] 10-10-2021 13:46-0400 Heart rate 88 /min Cass Guzman MD Work Phone: [facility] 10-10-2021 13:46-0400 Respiratory rate 16 /min Cass Guzman MD Work Phone: [facility] 10-10-2021 13:46-0400 SaO2% (BldA) [Mass fraction] 98 % Cass Guzman MD Work Phone: [facility] 09-17-2021 16:43-0400 Body height 165.1 cm Bijan Elmore MD Work Phone: [facility] 09-17-2021 16:43-0400 Body weight 83.92 kg Bijan Elmore MD Work Phone: [facility] 09-17-2021 16:43-0400 Diastolic blood pressure 65 mm[Hg] Bijan Elmore MD Work Phone: [facility] 09-17-2021 16:43-0400 Heart rate 82 /min Bijan Elmore MD Work Phone: [facility] 09-17-2021 16:43-0400 SaO2% (BldA) [Mass fraction] 95 % Bijan Elmore MD Work Phone: [facility] 09-17-2021 16:43-0400 Systolic blood pressure 114 mm[Hg] Bijan Elmore MD Work Phone: [facility] 09-05-2021 08:51-0400 Body height 167.[address] Francisco Elmore Work Phone: [facility] Work Phone: 09-05-2021 08:51-0400 Body mass index (BMI) [Ratio] 30.7 kg/m2 Dr. Francisco Elmore Work Phone: [facility] Work Phone: 09-05-2021 08:51-0400 Body temperature 97.5 [degF] Dr. Francisco Elmore Work Phone: [facility] Work Phone: 09-05-2021 08:51-0400 Body weight 86.[address] Francisco Elmore Work Phone: [facility] Work Phone: 09-05-2021 08:51-0400 Diastolic blood pressure 88 mm[Hg] Dr. Francisco Elmore Work Phone: [facility] Work Phone: 09-05-2021 08:51-0400 Heart rate 87 /min Dr. Francisco Elmore Work Phone: [facility] Work Phone: 09-05-2021 08:51-0400 Respiratory rate 14 /min Dr. Francisco Elmore Work Phone: [facility] Work Phone: 09-05-2021 08:51-0400 SaO2% (BldA) [Mass fraction] 94 % Dr. Francisco Elmore Work Phone: [facility] Work Phone: 09-05-2021 08:51-0400 Systolic blood pressure 139 mm[Hg] Dr. Francisco Elmore Work Phone: [facility] Work Phone: 06-27-2021 13:56-0400 Heart rate 84 /min Justen Morgan MD Work Phone: [facility] 06-27-2021 13:56-0400 SaO2% (BldA) [Mass fraction] 96 % Justen Morgan MD Work Phone: [facility] 06-26-2021 15:09-0400 Diastolic blood pressure 60 mm[Hg] Cheryl Angela HUMAN SERVICES PROFESSIONAL.FOOD SERVICE WORKER Work Phone: [facility] 06-26-2021 15:09-0400 Heart rate 82 /min Cheryl Angela HUMAN SERVICES PROFESSIONAL.FOOD SERVICE WORKER Work Phone: [facility] 06-26-2021 15:09-0400 Systolic blood pressure 125 mm[Hg] Cheryl Angela HUMAN SERVICES PROFESSIONAL.FOOD SERVICE WORKER Work Phone: [facility] 06-12-2021 18:37-0400 Body temperature 97.5 [degF] Romina Bhat HUMAN SERVICES PROFESSIONAL.FOOD SERVICE WORKER Work Phone: [facility] 04-26-2022 18:37-0400 Diastolic blood pressure 72 mm[Hg] Romina Praisler-Wood HUMAN SERVICES PROFESSIONAL.FOOD SERVICE WORKER Work Phone: [facility] 06-12-2021 18:37-0400 Heart rate 96 /min Romina Praisler-Wood HUMAN SERVICES PROFESSIONAL.FOOD SERVICE WORKER Work Phone: [facility] 06-12-2021 18:37-0400 Respiratory rate 18 /min Romina Praisler-Wood HUMAN SERVICES PROFESSIONAL.FOOD SERVICE WORKER Work Phone: [facility] 06-12-2021 18:37-0400 SaO2% (BldA) [Mass fraction] 99 % Romina Praisler-Wood HUMAN SERVICES PROFESSIONAL.FOOD SERVICE WORKER Work Phone: [facility] 06-12-2021 18:37-0400 Systolic blood pressure 122 mm[Hg] Romina Praisler-Wood HUMAN SERVICES PROFESSIONAL.[facility] Work Phone: [facility] 04-30-2021 06:00-0400 Body mass index (BMI) [Ratio] 39.27 kg/m2 Bell Scott MD Work Phone: [facility] 04-30-2021 06:00-0400 Body weight 107.05 kg Bell Scott MD Work Phone: [facility] 04-30-2021 05:52-0400 Body temperature 98.2 [degF] Bell Scott MD Work Phone: [facility] 04-30-2021 05:52-0400 Diastolic blood pressure 73 mm[Hg] Bell Scott MD Work Phone: [facility] 04-30-2021 05:52-0400 Heart rate 74 /min Bell Scott MD Work Phone: [facility] 04-30-2021 05:52-0400 Respiratory rate 18 /min Bell Scott MD Work Phone: [facility] 04-30-2021 05:52-0400 SaO2% (BldA) [Mass fraction] 99 % Bell Scott MD Work Phone: [facility] 04-30-2021 05:52-0400 Systolic blood pressure 122 mm[Hg] Bell Scott MD Work Phone: [facility] 04-17-2021 18:05-0500 Body height 165.1 cm Bell Scott MD Work Phone: [facility] 12-29-2020 16:00-0500 Body temperature 100.9 [degF] Adalberto Mcqueen MD Work Phone: [facility] 12-29-2020 16:00-0500 Diastolic blood pressure 81 mm[Hg] Adalberto Mcqueen MD Work Phone: [facility] 12-29-2020 16:00-0500 Heart rate 78 /min Adalberto Mcqueen MD Work Phone: [facility] 12-29-2020 16:00-0500 Respiratory rate 20 /min Adalberto Mcqueen MD Work Phone: [facility] 12-29-2020 16:00-0500 SaO2% (BldA) [Mass fraction] 98 % Adalberto Mcqueen MD Work Phone: [facility] 12-29-2020 16:00-0500 Systolic blood pressure 140 mm[Hg] Adalberto Mcqueen MD Work Phone: [facility] 12-19-2020 08:23-0400 Body height 167.6 cm Adalberto Mcqueen MD Work Phone: [facility] 12-18-2020 17:00-0400 Body mass index (BMI) [Ratio] 31.53 kg/m2 Adalberto Mcqueen MD Work Phone: [facility] 12-18-2020 17:00-0400 Body weight 88.6 kg Adalberto Mcqueen MD Work Phone: [facility] 01-12-2019 08:42-0500 Body Temperature 98.29 [degF] [facility] [place] 01-12-2019 08:42-0500 BP Diastolic 84 mm[Hg] [facility] , [place] 01-12-2019 08:42-0500 BP Systolic 144 mm[Hg] [facility] , [place] 01-12-2019 08:42-0500 Pulse (Heart Rate) 75 /min [facility] [place] 01-12-2019 08:42-0500 Pulse Oximetry 100 % [facility] [place] 01-12-2019 08:42-0500 Respiratory Rate 16 /min [facility] [place] 01-08-2019 13:41-0500 BMI (Body Mass Index) 28.25 kg/m2 [facility] [place] 01-08-2019 13:41-0500 Body weight 79.38 kg [facility] [place] 01-05-2019 12:47-0500 Height 167.6 cm [facility] [place] Encounters Encounter Date Encounter Type Care Provider Facility Start: 08-04-2024 End: 08-05-2024 Refill Bijan Elmore MD Work Phone: [facility] Comment on above: Refill Request Start: 08-04-2024 End: 08-05-2024 Refill Bijan Elmore MD Work Phone: [facility] Comment on above: Refill Request Start: 07-20-2024 End: 07-20-2024 ambulatory [facility] Amb[facility] Start: 07-03-2024 End: 07-05-2024 Refill Cheryl Araujo APRN.FOOD SERVICE WORKER Work Phone: [facility] Comment on above: Refill Request Start: 07-02-2024 End: 07-02-2024 Refill Bijan Elmore MD Work Phone: [facility] Comment on above: Refill Request Start: 06-16-2024 End: 06-16-2024 Refill Cheryl Araujo APRN.FOOD SERVICE WORKER Work Phone: [facility] Comment on above: Refill Request Start: 05-31-2024 End: 05-31-2024 Refill Cheryl Araujo APRN.FOOD SERVICE WORKER Work Phone: [facility] Comment on above: Refill Request Start: 05-25-2024 End: 06-25-2024 ambulatory Biajn Elmore MD Work Phone: [facility] Start: 05-25-2024 End: 05-25-2024 Refill Cheryl Araujo HUMAN SERVICES PROFESSIONAL.FOOD SERVICE WORKER Work Phone: [facility] Comment on above: Refill Request Start: 05-13-2024 End: 06-12-2024 ambulatory PERCY Leslie [facility] Start: 05-04-2024 End: 05-07-2024 ambulatory Bijan Elmore MD Work Phone: Internal Medicine [facility] Start: 04-30-2024 End: 04-30-2024 Refill Bijan Elmore MD Work Phone: [facility] Comment on above: Refill Request Start: 04-26-2024 End: 04-26-2024 Telephone encounter Bijan Elmore MD Work Phone: [facility] Comment on above: [facility] Start: 04-25-2024 End: 05-12-2024 Evaluation and management of inpatient Dinah Noe MD Work Phone: [facility] Start: 04-25-2024 End: 04-25-2024 Emergency department patient visit Dr. Francisco Elmore MD Work Phone: -Emergency Department Work Phone: Start: 04-08-2024 ambulatory [facility] Facility:[facility] Start: 04-03-2024 End: 04-05-2024 Refill Cheryl Araujo HUMAN SERVICES PROFESSIONAL.FOOD SERVICE WORKER Work Phone: [facility] Comment on above: Refill Request Start: 04-01-2024 End: 04-02-2024 Refill Bijan Elmore MD Work Phone: [facility] Comment on above: Refill Request Start: 04-01-2024 End: 04-02-2024 Refill Bijan Elmore MD Work Phone: [facility] Comment on above: Refill Request Start: 03-27-2024 End: 04-05-2024 Refill Cheyrl Araujo HUMAN SERVICES PROFESSIONAL.FOOD SERVICE WORKER Work Phone: [facility] Comment on above: Refill Request Start: 03-25-2024 End: 04-01-2024 Evaluation and management of inpatient Filippo Mark MD Work Phone: [facility] 6 Surgical Oncology Comment on above: 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, unspecified fracture morphology, subsequent encounter (Primary Dx); Tibia and fibula open fracture, right, sequela; Chronic multifocal osteomyelitis of right tibia (Multi); PONV (postoperative nausea and vomiting); Constipation, unspecified constipation type Start: 03-24-2024 ambulatory Out of Town Doctor Kaila gibbons:[facility] Start: 03-22-2024 End: 03-22-2024 Refill Cheryl Araujo HUMAN SERVICES PROFESSIONAL.FOOD SERVICE WORKER Work Phone: [facility] Comment on above: Refill Request Start: 03-16-2024 End: 03-18-2024 Telephone encounter Bijan Elmore MD Work Phone: [facility] Comment on above: [facility] Start: 03-11-2024 End: 03-18-2024 Evaluation and management of inpatient Cruz Goodman MD Work Phone: [place] [id number] Comment on above: Chronic multifocal o steomyelitis of right tibia (Multi) (Primary Dx); Tibial plateau fracture, right, sequela; Traumatic arthritis of right knee Start: 03-03-2024 End: 03-03-2024 Refill Kenia Mistry HUMAN SERVICES PROFESSIONAL.FOOD SERVICE WORKER Work Phone: [facility] Comment on above: Refill Request Start: 03-03-2024 End: 03-03-2024 Refill Bijan Elmore MD Work Phone: [facility] Comment on above: Refill Request Start: 02-28-2024 End: 03-01-2024 Refill Clark Song MD Work Phone: [facility] Comment on above: Refill Request Start: 02-27-2024 Evaluation and manag ement of inpatient CRUZ GOODMAN [facility] Start: 02-24-2024 End: 02-24-2024 Postop follow up visit related to original px Di Jang PA-C Work Phone: [facility]opedic [facility] Comment on above: 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 (Multi) (Primary Dx); Tibial plateau fracture, right, sequela; Wound dehiscence, surgical, initial encounter Start: 02-24-2024 End: 02-24-2024 [facility] Start: 02-24-2024 End: 02-24-2024 ambulatory TAHIRKobiLISSAJerry HAMMER~[id number] [facility] Start: 02-03-2024 End: 02-04-2024 Telephone encounter Bijan Elmore MD Work Phone: [facility] Comment on above: Orders (millers) Refill Request Start: 01-30-2024 End: 01-30-2024 Refill Clark Song MD Work Phone: [facility] Comment on above: Refill Request Start: 01-27-2024 End: 01-27-2024 Telephone encounter Bijan Elmore MD Work Phone: [facility] Comment on above: Orders (millers) Start: 01-26-2024 End: 01-27-2024 Refill Cheryl Araujo APRN.CNP Work Phone: Family [facility] Comment on above: Refill Request Start: 01-09-2024 End: 01-16-2024 Evaluation and management of inpatient Cruz Goodman MD Work Phone: [facility] [place] [facility] Comment on above: Tibia and fibula ope n fracture, right, sequela (Primary Dx); Traumatic arthritis of left hip; Postoperative pain Start: 01-06-2024 End: 01-06-2024 Refill Bijan Elmore MD Work Phone: Family [facility] Comment on above: Refill Request Start: 12-31-2023 End: 12-31-2023 Telephone encounter Bijan Elmore MD Work Phone: Family Practice Comment on above: Results; Orders Start: 12-30-2023 End: 12-30-2023 ambulatory CRUZ Zbigniew [facility] Start: 12-30-2023 End: 12-30-2023 Encounter for other preprocedural examination CRUZ Coy [facility] Start: 12-30-2023 End: 12-30-2023 Encounter for preprocedural cardiovascular examination CRUZ Coy [facility] Start: 12-30-2023 End: 12-30-2023 Encounter for preprocedural respiratory examination CRUZ Zbigniew [facility] Start: 12-30-2023 End: 12-30-2023 Refill Cheryl Araujo APRN.FOOD SERVICE WORKER Work Phone: Family Practice Comment on above: Refill Request Start: 12-18-2023 End: 12-18-2023 ambulatory NO ASSIGNED PCP GENERIC PROVIDER [facility] Start: 12-17-2023 End: 12-19-2023 ambulatory BIJAN ELMORE Facility:[facility] Comment on above: Chair Start: 12-17-2023 End: 12-17-2023 Subsequent hospital visit by physician [facility] Work Phone: Cardiology Lab Comment on above: Essential hypertensi on [I10] Start: 12-16-2023 End: 12-16-2023 ambulatory Cheryl Araujo APRN.FOOD SERVICE WORKER Work Phone: Family Practice Comment on above: Wheelchair Start: 12-15-2023 End: 12-15-2023 ambulatory [facility] Start: 12-15-2023 End: 12-15-2023 Subsequent hospital visit by physician Aurelio Mancini [address] [facility] Comment on above: Traumatic arthritis of right knee Tibial plateau fract ure, right, sequela Start: 12-15-2023 End: 12-15-2023 Telephone encounter Bijan Elmore MD Work Phone: Family Practice Comment on above: Order for wheelchair Start: 12-10-2023 End: 12-10-2023 Refill Bijan Elmore MD Work Phone: Family [facility] Comment on above: Refill Request Start: 12-10-2023 End: 12-10-2023 Telephone encounter Bijan Elmore MD Work Phone: [facility] Comment on above: Rx sent to wrong pha rmacy Start: 12-09-2023 End: 12-09-2023 ambulatory Bijan Elmore MD Work Phone: [facility] Comment on above: Rx .. 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 (Multi) (Primary Dx); Tibial plateau fracture, right, sequela Start: 12-01-2023 End: 12-01-2023 ambulatory CRUZ GOODMAN [facility] Start: 11-23-2023 End: 11-24-2023 Refill Bijan Elmore MD Work Phone: [facility] Comment on above: Refill Request Start: 11-21-2023 End: 11-21-2023 Telephone encounter Bijan Elmore MD Work Phone: Neurology Comment on above: Received Outside Med ical Records ([facility] Order for incontinence supplies 11/21/2023) Start: 11-18-2023 End: 11-18-2023 ambulatory SELF Facility:[facility] Start: 11-18-2023 End: 11-18-2023 Office outpatient visit 25 minutes Bijan Elmore MD Work Phone: [facility] Comment on above: Traumatic arthritis of left hip (Primary Dx); Status post left hip replacement; Chronic hepatitis C without hepatic coma (HCC); Acquired hypothyroidism; Continuous dependence on cigarette smoking; Carpal tunnel syndrome, right; Essential hypertension; Chronic anxiety; Newly recognized heart murmur Start: 11-11-2023 End: 11-12-2023 Refill Bijan Elmore MD Work Phone: [facility] Comment on above: Refill Request Start: 11-07-2023 End: 11-11-2023 Refill Bijan Elmore MD Work Phone: [facility] Comment on above: Refill Request Start: 11-02-2023 End: 11-03-2023 Refill Cheryl Miller HUMAN SERVICES PROFESSIONAL.FOOD SERVICE WORKER Work Phone: [facility] Comment on above: Refill Request Start: 10-12-2023 End: 10-13-2023 Refill Bijan Elmore MD Work Phone: [facility] Comment on above: Refill Request Start: 10-08-2023 End: 10-08-2023 Refill Bijan Elmore MD Work Phone: [facility] Comment on above: Refill Request Start: 10-08-2023 End: 10-10-2023 Refill Bijan Elmore MD Work Phone: [facility] Comment on above: Refill Request Start: 09-28-2023 Orders Only Bijan moralez MD Work Phone: [facility] Start: 09-15-2023 Refill Bijan moralez MD Work Phone: [facility] Comment on above: Refill Request Home [facility] Start: 09-14-2023 ambulatory Bijan moralez MD Work Phone: [facility] Comment on above: Med approval Q. Refill Request Start: 09-08-2023 Refill Bijan moralez MD Work Phone: [facility] Comment on above: Refill Request Start: 08-30-2023 Refill Cheryl Miller HUMAN SERVICES PROFESSIONAL.FOOD SERVICE WORKER Work Phone: [facility] Comment on above: Refill Request Start: 08-29-2023 Refill Clark landeros MD Work Phone: Family [facility] Comment on above: Refill Request Start: 08-25-2023 End: 08-25-2023 Subsequent hospital visit by physician Keith Lloyd X-Ray 2 [facility] Comment on above: Traumatic arthritis of right knee Start: 08-25-2023 End: 08-25-2023 Office outpatient visit 40 minutes Cruz Goodman MD Work Phone: [facility] Comment on above: Traumatic arthritis of right knee; Pain of right tibia Start: 08-25-2023 End: 08-25-2023 ambulatory [facility] Start: 08-19-2023 ambulatory Cheryl Angela HUMAN SERVICES PROFESSIONAL.FOOD SERVICE WORKER Work Phone: [facility] Comment on above: External catheter Start: 08-19-2023 Telephone encounter Bijan Elmore MD Work Phone: [facility] Comment on above: Orders ([facility]) Start: 08-15-2023 Refill Bijan moralez MD Work Phone: [facility] Comment on above: Refill Request Start: 07-16-2023 ambulatory Cheryl Angela HUMAN SERVICES PROFESSIONAL.FOOD SERVICE WORKER Work Phone: [facility] Comment on above: Clonadine Refill Request Start: 07-12-2023 Refill Bijan moralez MD Work Phone: [facility] Comment on above: Refill Request Start: 07-07-2023 End: 07-07-2023 ambulatory [facility] Start: 07-07-2023 End: 07-07-2023 Subsequent hospital visit by physician Aurelio Mancini [address] 1 [facility] Comment on above: Avascular necrosis o f bone of left hip (Multi) Start: 06-25-2023 ambulatory Bijan moralez MD Work Phone: [facility] [place] Start: 06-17-2023 Refill Bijan moralez MD Work Phone: [facility] Comment on above: Refill Request Start: 06-12-2023 End: 06-12-2023 ambulatory [facility] Start: 06-12-2023 End: 06-12-2023 ambulatory [facility] Start: 06-12-2023 End: 06-12-2023 Office outpatient new 60 minutes [facility] Comment on above: Hip pain, chronic, l eft (Primary Dx); Avascular necrosis of bone of left hip (Multi); Traumatic arthritis of left hip; Traumatic arthritis of right knee; Closed posterior wall acetabular fx, left, sequela Start: 06-12-2023 End: 06-12-2023 Subsequent [facility] visit by [facility] Comment on above: Hip pain, chronic, l eft Start: 06-10-2023 Refill Bijan moralez MD Work Phone: [facility] Comment on above: Refill Request Start: 06-06-2023 Refill Bijan moralez MD Work Phone: [facility] Comment on above: Refill Request Start: 06-05-2023 ambulatory Bijan moralez MD Work Phone: [facility] Comment on above: Lft arm relief Start: 06-03-2023 Telephone encounter Bijan Elmore MD Work Phone: [facility] Comment on above: Orders ([facility]) Start: 05-20-2023 Refill Bijan moralez MD Work Phone: [facility] Comment on above: Refill Request Start: 05-04-2023 ambulatory Bijan moralez MD Work Phone: [facility] Start: 05-04-2023 Patient encounter procedure Bijan Elmore MD Work Phone: [facility] Comment on above: Referral #2 [facility] Q. Start: 04-28-2023 ambulatory Bijan moralez MD Work Phone: [facility] Start: 04-28-2023 Patient encounter procedure Bijan Elmore MD Work Phone: [facility] Comment on above: Referral Q. Start: 04-23-2023 Refill Bijan moralez MD Work Phone: [facility] Comment on above: Refill Request Start: 04-15-2023 Refill Clark landeros MD Work Phone: [facility] Comment on above: Refill Request Start: 03-26-2023 Orders Only Cheryl Angela HUMAN SERVICES PROFESSIONAL.FOOD SERVICE WORKER Work Phone: [facility] Comment on above: Seizures (HCC) (Prim shayla Dx) Start: 03-25-2023 Refill Bijan moralez MD Work Phone: [facility] Comment on above: Refill Request Start: 01-24-2023 Refill Bijan moralez MD Work Phone: [facility] Comment on above: Refill Request J Jono Topical Rx Q. Start: 12-31-2022 Telephone encounter Bijan Elmore MD Work Phone: [facility] Comment on above: Letter (Fax sent to Dr Kit Castellanos 12/31/2022) Start: 12-24-2022 Telephone encounter Bijan Elmore MD Work Phone: [facility] Comment on above: Medication Request ( [facility] Levetiracetam ) Start: 12-23-2022 Telephone encounter Bijan Elmore MD Work Phone: [facility] Comment on above: Orders Start: 12-04-2022 Refill Cheryl Angela HUMAN SERVICES PROFESSIONAL.FOOD SERVICE WORKER Work Phone: [facility] Comment on above: Refill Request Start: 12-02-2022 Telephone encounter Bijan Elmore MD Work Phone: [facility] Comment on above: wound culture ([facility] 1 ) Start: 11-29-2022 Non-patient / Non-visit Dr. Vipul Elmore Work Phone: [facility] Start: 11-28-2022 End: 12-17-[address] Francisco Elmore Work Phone: [facility] Work Phone: Start: 11-28-2022 End: 12-17-[address] Francisco Elmore Work Phone: [facility] Work Phone: Start: 11-26-2022 ambulatory Bijan moralez MD Work Phone: Family Practice Comment on above: Lab work Q Start: 11-21-2022 ambulatory Bijan moralez MD Work Phone: Family Practice Comment on above: Painful rt leg. Start: 10-31-2022 Telephone encounter Bijan Elmore MD Work Phone: Family Practice Comment on above: Orders (Incontinence supplies [facility] ) Received Outside Med ical Records (Imaging [facility] 10/30/22) Start: 10-30-2022 End: 10-30-2022 ambulatory [facility] Work Phone: Start: 10-30-2022 End: 10-30-2022 Patient encounter procedure [facility]-Cat Scan, [facility] Work Phone: Start: 10-29-2022 Telephone encounter Bijan Elmore MD Work Phone: Family Practice Comment on above: Orders (HOME CARE NU RSING) Start: 10-24-2022 Telephone encounter Bijan Elmore MD Work Phone: Family Practice Comment on above: Received Outside Med ical Records ([facility] Orders for adult underwear disposable underpad 10/24/2022) Start: 10-20-2022 Refill Cheryl Miller APRN.FOOD SERVICE WORKER Work Phone: Family Practice Comment on above: Refill Request Start: 10-17-2022 Social Work Alicia Josue [facility] Social Work Comment on above: Needs assistance wit h community resources (Primary Dx) Orders Start: 09-27-2022 Social Work Alicia Josue PHARMACY LABORATORY TECHNICIAN Prim [facility] Social Work Comment on above: Needs assistance wit h community resources (Primary Dx) Start: 09-26-2022 End: 09-26-2022 Patient encounter procedure Bijan Elmore MD Work Phone: [facility] Comment on above: Urinary incontinence , unspecified type (Primary Dx); Seizures (HCC); Chronic anxiety; Hypertension, essential; Hypothyroidism, acquired; Chronic pain syndrome; Chronic left hip pain; Gastroesophageal reflux disease, unspecified whether esophagitis present; Nausea; Screening for lipid disorders; Chronic ulcer of right leg, 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); Nocturnal enuresis; Stress incontinence; Functional urinary incontinence Start: 09-18-2022 Refill Bijan moralez MD Work Phone: [facility] Comment on above: Refill Request Start: 07-25-2022 Refill Bijan moralez MD Work Phone: [facility] Comment on above: Refill Request Start: 07-17-2022 ambulatory Bijan moralez MD Work Phone: [facility] [place] Start: 07-05-2022 Refill Bijan moralez MD Work Phone: [facility] Comment on above: Refill Request Start: 06-24-2022 Telephone encounter Bijan Elmore MD Work Phone: [facility] Comment on above: DME order Start: 05-31-2022 Refill Cheryl Miller APRN.FOOD SERVICE WORKER Work Phone: [facility] Comment on above: Refill Request Start: 05-23-2022 Telephone encounter Isiah Dietrich MD Work Phone: [facility] Clinical Communication Comment on above: New Patient Start: 04-28-2022 Refill Bijan moralez MD Work Phone: [facility] Comment on above: Refill Request Start: 04-17-2022 End: 04-18-2022 ambulatory [facility] Start: 04-17-2022 End: 04-17-2022 Office outpatient visit 15 minutes Cass Guzman MD Work Phone: [facility] Comment on above: Left hip pain (Prima ry Dx); Acute pain of right knee; Open wound of right knee, subsequent encounter Start: 04-17-2022 End: 04-17-2022 Office outpatient visit 25 minutes Cass Guzman MD Work Phone: [facility] Comment on above: Left hip pain (Prima ry Dx); Acute pain of right knee; Open wound of right knee, subsequent encounter Start: 04-17-2022 Orders Only Andre ward MD Work Phone: [facility] Start: 04-17-2022 Telephone encounter Nicolas valdes MD Work Phone: [facility] Comment on above: Page out Start: 04-17-2022 End: 04-17-2022 Subsequent hospital visit by physician Cass Guzman MD Work Phone: [facility] Comment on above: Left hip pain Start: 04-09-2022 Orders Only Damian Moya PA-C Work Phone: [facility] Comment on above: Left hip pain (Prima ry Dx) Start: 04-03-2022 Refill Cheryl Miller APRN.CNP Work Phone: [facility] [place] Comment on above: Refill Request Start: 04-03-2022 End: 04-03-2022 [facility] Start: 04-03-2022 End: 04-03-2022 Office outpatient visit 40 minutes Jarvis Almonte MD Work Phone: [facility] [place] Comment on above: Traumatic open wound of right lower leg with infection, initial encounter (Primary Dx); MRSA infection Start: 03-18-2022 Telephone encounter Bijan Elmore MD Work Phone: Family Practice Comment on above: Received Outside Med ical Records ([facility] summary visit 03/15/2022) Start: 03-15-2022 End: 03-16-2022 ambulatory PACHECO BOOTHE [facility] Start: 03-15-2022 End: 03-15-2022 Subsequent [...] Refill Bijan moralez MD Work Phone: NURSE DYEING MACHINE FEEDER Comment on above: Refill Request Start: 03-04-2022 Refill Bijan moralez MD Work Phone: [facility] [place] Comment on above: Refill Request Start: 02-20-2022 Telephone encounter Amelia Marie LPN [facility] [place] Comment on above: Cancelled Appointmen t Start: 02-03-2022 Refill Bijan moralez MD Work Phone: Family Practice Comment on above: Refill Request Start: 02-02-2022 Refill Bijan moralez MD Work Phone: Family Practice Comment on above: Refill Request Start: 01-31-2022 End: 02-01-2022 ambulatory PACHECO BOOTHE [facility] Start: 01-09-2022 End: 01-09-2022 ambulatory JARVIS ALMONTE [facility] Start: 12-24-2021 End: 12-24-2021 ambulatory FRANCISCO WARE [facility] Start: 12-17-2021 End: 12-17-2021 ambulatory MACK NEW [facility] Start: 12-13-2021 ambulatory CASSY KORIN [facility] Start: 12-12-2021 End: 12-12-2021 ambulatory Nurse Triage Veronica/Hermelinda Work Phone: Nurse Phone Triage Comment on above: Nurse Triage Call (W ound care concern ) Start: 12-11-2021 ambulatory Bijan moralez MD Work Phone: [facility] Comment on above: Nurse Triage Call Start: 11-30-2021 ambulatory FRANCISCO Powell [facility] Start: 11-28-2021 Telephone encounter Bijan Elmore MD Work Phone: Family Practice Comment on above: Request Outside [facility] Records ([facility]) Start: 11-27-2021 Telephone encounter Bijan Elmore MD Work Phone: Family Practice Comment on above: Orders (Home health care for wound) Start: 11-16-2021 End: 11-16-2021 ambulatory MACK [facility] Start: 11-05-2021 Telephone encounter Bijan Elmore MD Work Phone: Family Practice Comment on above: Electronic Communica tion Start: 11-02-2021 Refill Bijan moralez MD Work Phone: [facility] Comment on above: Refill Request Start: 10-26-2021 [facility] Start: 10-15-2021 ambulatory Jyoti Ni [facility] Start: 10-10-2021 End: 10-11-2021 ambulatory CASS GUZMAN [facility] Start: 10-10-2021 Telephone encounter Bijan Elmore MD Work Phone: [facility] Comment on above: Orders (Woundcare [facility] patient care solution) Start: 10-10-2021 End: 10-10-2021 Subsequent hospital visit by physician Cass Guzman MD Work Phone: [facility] Start: 10-09-2021 Telephone encounter Bijan Elmore MD Work Phone: [facility] Comment on above: Patient Question Start: 10-03-2021 Telephone encounter Bijan Elmore MD Work Phone: Family Practice Comment on above: Orders ([facility] pt care solutions) Start: 09-17-2021 End: 09-17-2021 Patient encounter procedure Bijan Elmore MD Work Phone: [facility] Comment on above: Left hip pain (Prima ry Dx); Seizures (HCC); Chronic anxiety; Right leg pain Start: 09-17-2021 Refill Cheryl Angela HUMAN SERVICES PROFESSIONAL.FOOD SERVICE WORKER Work Phone: [facility] Comment on above: Refill Request Start: 09-17-2021 Telephone encounter Bijan Elmore MD Work Phone: [facility] Comment on above: Refill Request Start: 09-16-2021 ambulatory Elsa azul RN NURSE DYEING MACHINE FEEDER Comment on above: Medication Problem Start: 09-14-2021 Telephone encounter Bijan Elmore MD Work Phone: [facility] Comment on above: Leg Pain Start: 09-08-2021 Nurse Triage Monisha Estevez RN NURSE DYEING MACHINE FEEDER Comment on above: Refill Request Start: 09-06-2021 Telephone encounter Bijan Elmore MD Work Phone: [facility] Comment on above: Received Outside Med [facility] Records (ED summary [facility]) Start: 09-05-2021 Non-patient / Non-visit Dr. Vipul Elmore Work Phone: [facility] Start: 09-05-2021 End: 09-05-2021 Emergency department patient visit Dr. Francisco Elmore Work Phone: [facility]-Emergency Department Start: 09-04-2021 Telephone encounter Bijan Elmore MD Work Phone: [facility] Comment on above: Orders ([facility]) Start: 08-29-[address] Jose Elmore Work Phone: [facility]-Occupational Therapy Start: 08-21-2021 Refill Cheryl Angela HUMAN SERVICES PROFESSIONAL.FOOD SERVICE WORKER Work Phone: [facility] Comment on above: Refill Request Start: 08-15-2021 ambulatory Bijan moralez MD Work Phone: [facility] [place] Start: 08-06-2021 Refill Bijan moralez MD Work Phone: Family Practice Comment on above: Refill Request Start: 07-31-2021 Telephone encounter Bijan Elmore MD Work Phone: Family Practice Comment on above: Orders ([facility]) Start: 07-26-2021 Telephone encounter Bijan Elmore MD Work Phone: Family Practice Comment on above: Received Outside Med ical Records ([facility]) Start: 07-23-2021 Telephone encounter Bijan Elmore MD Work Phone: Family Practice Comment on above: Medication Request Start: 07-20-2021 Telephone encounter Bijan Elmore MD Work Phone: Family Practice Comment on above: Received Outside Med ical Records ([facility] Occupational therapy [facility] 07/19/2021) Start: 07-19-2021 Refill Cheryl Miller APRN.CNP Work Phone: Family Practice Comment on above: Refill Request Start: 07-19-2021 Telephone encounter Bijan Elmore MD Work Phone: Family Practice Comment on above: Rehab service (Evalu ation from [facility] PT) Start: 07-13-2021 Telephone encounter Bijan Elmore MD Work Phone: Family Practice Comment on above: Orders ([facility] 07/12/2021) Refill Request Start: 07-12-2021 End: 07-12-2021 ambulatory Bijan Elmore MD Work Phone: Family Practice Comment on above: NO SHOW (Primary Dx) Start: 07-12-2021 End: 07-12-2021 Telemedicine consultation with patient Bijan Elmore MD Work Phone: [facility] Start: 07-09-2021 Telephone encounter Bijan Elmore MD Work Phone: Family Practice Comment on above: Orders ([facility] 07/03/2021) Orders ([facility] 07/06/2021) Patient Request orders faxed (review ed and signed by PCP sent back to [facility].) Start: 07-05-2021 Telephone encounter Bijan Elmore MD Work Phone: [facility] Comment on above: Orders Orders (fax to [facility] for Occupational and physical therapy to [phone]) Patient Question (pa tient requesting call back) Start: 07-04-2021 Telephone encounter Bijan Elmore MD Work Phone: [facility] Comment on above: [facility] Orders (Signed by PC P and faxed to [facility]) Start: 07-03-2021 Telephone encounter Bijan Elmore MD Work Phone: [facility] Comment on above: Patient Update ([facility]) Start: 07-02-2021 Telephone encounter Bijan Elmore MD Work Phone: [facility] Comment on above: Received Outside Med ical Records (from [facility]) Start: 06-29-2021 Telephone encounter Bijan Elmore MD Work Phone: [facility] Comment on above: Orders ([facility] Patient Care Solution 06/29/2021 wound care supplies) Patient Update Start: 06-28-2021 Telephone encounter Bijan Elmore MD Work Phone: [facility] Comment on above: signed orders (faxed to [facility] as requested.) Start: 06-27-2021 End: 06-27-2021 Patient encounter procedure Justen Morgan MD Work Phone: Pain Management Comment on above: Traumatic injury (Pr imary Dx); Chronic pain syndrome; Multiple fractures Start: 06-27-2021 Telephone encounter Cheryl guerra HUMAN SERVICES PROFESSIONAL.FOOD SERVICE WORKER Work Phone: [facility] Comment on above: Results Appointment (Pre-Rosalind ointment Notification ) Start: 06-26-2021 End: 06-26-2021 Patient encounter procedure Cheryl Miller APRN.FOOD SERVICE WORKER Work Phone: Family Practice Comment on above: Hypertension, essent ial (Primary Dx); Gastroesophageal reflux disease, unspecified whether esophagitis present; Chronic pain syndrome; Hypothyroidism, acquired; Debility; Seizures (HCC); Chronic anxiety Start: 06-26-2021 Telephone encounter Bijan Elmore MD Work Phone: Family [facility] Comment on above: Patient Update (From [facility]) Start: 06-22-2021 Telephone encounter Bijan Elmore MD Work Phone: Family Medicine Comment on above: Orders ([facility] re 06/21/2021) Start: 06-20-2021 Telephone encounter Bijan Elmore MD Work Phone: Family Practice Comment on above: Appointment (Video) Start: 06-20-2021 End: 06-20-2021 ambulatory Bijan Elmore MD Work Phone: Family [facility] Comment on above: Chronic anxiety ([facility] monisha Dx); Fractures, multiple; Open fracture of condyle of right tibia; Fx malar & max bones ace LeFort 3 open (HCC); Traumatic closed nondisplaced fracture of left acetabulum, sequela; Laceration of spleen, sequela Start: 06-20-2021 End: 06-20-2021 Telemedicine consultation with patient Bijan Elmore MD Work Phone: [facility] Start: 06-18-2021 Telephone encounter Bijan Elmore MD Work Phone: [facility] Comment on above: Received Outside Med ical Records (from [facility]) Orders (for occupati onal therapy sent to [facility]) Patient Update (from [facility]) Orders (faxed to [facility]) Medication Request ( clonazepam) Start: 06-13-2021 Telephone encounter Bijan Elmore MD Work Phone: Family [facility] Comment on above: Orders ([facility] re orders 06/12/2021) Start: 06-12-2021 End: 06-12-2021 Patient encounter procedure Romina Bhat APRN.CNP Work Phone: [facility] Comment on above: Leg wound, right, in itial encounter (Primary Dx) Start: 06-07-2021 Nurse Triage Bijan moralez MD Work Phone: [facility] Comment on above: Orders Start: 05-29-2021 Telephone encounter Bijan Elmore MD Work Phone: [facility] Comment on above: Orders Start: 05-28-2021 ambulatory [facility] Start: 05-23-2021 ambulatory Bijanrobi Elmore [facility] Start: 05-15-2021 ambulatory Elsie [facility] Start: 05-15-2021 End: 05-15-2021 Subsequent hospital visit by physician Elsie Moreno MD Work Phone: [facility] Radiology Start: 04-18-2021 End: 04-30-2021 Evaluation and management of inpatient UNKNOWN PROVIDER [facility] Start: 04-17-2021 End: 04-30-2021 Evaluation and management of inpatient Bell Scott MD Work Phone: [facility] 7W MED SURG Comment on above: Debility (Primary Dx ); Open wound knee/leg with tendon involvment, right, sequela; Anxiety Start: 03-29-2021 End: 04-12-2021 ambulatory UNKNOWN PROVIDER [facility] Start: 01-26-2021 End: 02-15-2021 Evaluation and management of inpatient UNKNOWN PROVIDER [facility] Start: 01-08-2021 ambulatory [facility] Start: 12-20-2020 End: 12-20-2020 ambulatory UNKNOWN PROVIDER Facility:[facility] Start: 12-18-2020 End: 12-18-2020 ambulatory UNKNOWN PROVIDER Facility:[facility] Start: 12-18-2020 End: 12-29-2020 Evaluation and management of inpatient Adalberto Mcqueen [facility] Start: 12-18-2020 End: 12-29-2020 Evaluation and management of inpatient Adalberto Mcqueen MD Work Phone: [facility] T[facility] Start: 02-25-2019 End: 02-25-2019 Subsequent hospital visit by physician Clementine Elkins HUMAN SERVICES PROFESSIONAL - RHEUMATOLOGY SPECIALIST Work Phone: [facility] Start: 02-11-2019 End: 02-11-2019 Subsequent hospital visit by physician Clementine Elkins HUMAN SERVICES PROFESSIONAL - RHEUMATOLOGY SPECIALIST Work Phone: [facility] Start: 02-04-2019 End: 02-04-2019 Subsequent hospital visit by physician Clementine Elkins HUMAN SERVICES PROFESSIONAL - RHEUMATOLOGY SPECIALIST Work Phone: [facility] Start: 02-01-2019 End: 02-01-2019 Subsequent hospital visit by physician Clementine Elkins HUMAN SERVICES PROFESSIONAL - RHEUMATOLOGY SPECIALIST Work Phone: [facility] Start: 01-25-2019 End: 01-25-2019 Subsequent hospital visit by physician Clementine Elkins HUMAN SERVICES PROFESSIONAL - RHEUMATOLOGY SPECIALIST Work Phone: [facility] Start: 01-18-2019 End: 01-18-2019 Subsequent hospital visit by physician Clementine Elkins Work Phone: [facility] Start: 01-05-2019 End: 01-12-2019 Evaluation and management of inpatient Clau Durham Work Phone: [facility] Comment on above: IV drug [...] Work Phone: Start: 05-08-2024 PREPARE RBC Jose [place] enschein DO Work Phone: Start: 05-08-2024 Basic [...] TRANSFUSE RED BLOOD CELLS Cindy More iy HUMAN SERVICES PROFESSIONAL-DIRECTOR LIFE, DNP Work Phone: Start: 05-05-2024 Injection aa&/strd [...] pane l calcium total Heathbhavyaleti Ward Herlinda HUMAN SERVICES PROFESSIONAL-FOOD SERVICE WORKER Work Phone: Start: 05-03-2024 Basic metabolic pane l calcium total Sandi O'Uvaldo PA-C Work Phone: Start: 05-03-2024 Blood typing serolog ic rh (d) Sandi O'Uvaldo PA-C Work Phone: Start: 05-02-2024 Basic metabolic pane l calcium total Sandi O'Uvaldo PA-C Work Phone: Start: 05-01-2024 Basic metabolic pane l calcium total Comfort R Tyo HUMAN SERVICES PROFESSIONAL-FOOD SERVICE WORKER Work Phone: Start: 04-30-2024 Basic metabolic pane l calcium total Comfort R Tyo HUMAN SERVICES PROFESSIONAL-FOOD SERVICE WORKER Work Phone: Start: 04-29-2024 Basic metabolic pane l calcium total Comfort R Tyo HUMAN SERVICES PROFESSIONAL-FOOD SERVICE WORKER Work Phone: Start: 04-29-2024 SLIDE REQUEST Tr ga MD Work Phone: Start: 04-28-2024 End: 04-28-2024 Culture fngi mold/yeast prsmptv oth xcpt blood Katie Evert PA-C Work Phone: Start: 04-28-2024 End: 04-28-2024 Debridement muscle & fascia 20 sq cm/< Filippo Mark MD Work Phone: Start: 04-28-2024 Basic metabolic pane l calcium total Comfort R Tyo HUMAN SERVICES PROFESSIONAL-FOOD SERVICE WORKER Work Phone: Start: 04-28-2024 End: 04-28-2024 Blood typing serologic rh (d) Comfort R Tyo HUMAN SERVICES PROFESSIONAL-FOOD SERVICE WORKER Work Phone: Start: 04-27-2024 Drug screen quantita [...] metabolic pane l calcium total Rajeev Pate HUMAN SERVICES PROFESSIONAL-FOOD SERVICE WORKER Work Phone: Start: 03-31-2024 Basic metabolic pane l calcium total Rajeev Pate HUMAN SERVICES PROFESSIONAL-FOOD SERVICE WORKER Work Phone: Start: 03-31-2024 C-reactive protein Deborah porsha Loyd PA-C Work Phone: Start: 03-30-2024 Basic metabolic pane l calcium total Comfort R Tyo HUMAN SERVICES PROFESSIONAL-FOOD SERVICE WORKER Work Phone: Start: 03-29-2024 End: 03-29-2024 Radiologic examination knee 1/2 views Amie Cha PA-C Work Phone: Start: 03-29-2024 Basic metabolic pane l calcium total Anitha De La O PA-C Work Phone: Start: 03-29-2024 Basic metabolic pane l calcium total Comfort R Tyo HUMAN SERVICES PROFESSIONAL-FOOD SERVICE WORKER Work Phone: Start: 03-29-2024 C-reactive protein Manny [...] pane l calcium total Comfort R Tyo HUMAN SERVICES PROFESSIONAL-FOOD SERVICE WORKER Work Phone: Start: 03-27-2024 C-reactive protein Manny en O'Uvaldo PA-C Work Phone: Start: 03-26-2024 Basic metabolic pane l calcium total Sandi O'Uvaldo PA-C Work Phone: Start: 03-26-2024 C-reactive protein Manny en O'Uvaldo PA-C Work Phone: Start: 03-26-2024 Basic metabolic pane l calcium total Comfort R Tyo HUMAN SERVICES PROFESSIONAL-FOOD SERVICE WORKER Work Phone: Start: 03-25-2024 End: 03-25-2024 TRANSFUSE RED BLOOD CELLS Comfort R Tyo A PRN-FOOD SERVICE WORKER Work Phone: Start: 03-25-2024 PREPARE RBC Comfort R T yo HUMAN SERVICES PROFESSIONAL-FOOD SERVICE WORKER Work Phone: Start: 03-25-2024 Chloride nellyd Filippo Landeros MD Work Phone: Start: 03-25-2024 Radiologic exam ches t single view Clark Walters MD Work Phone: Start: 03-25-2024 Potassium serum plasma/whole blood Comfort R Tyo HUMAN SERVICES PROFESSIONAL-FOOD SERVICE WORKER Work Phone: Start: 03-25-2024 PULSE OXIMETRY, CONTINUOUS Clark Walters MD Work Phone: Start: 03-25-2024 End: 03-25-2024 Chloride bld Elin Silvestre [employer] Work Phone: Start: 03-25-2024 Chloride bld Luis Rodríguez fag [employer] Work Phone: Start: 03-25-2024 End: 03-25-2024 TRANSFUSE RED BLOOD CELLS Siham [employer] Work Phone: Start: 03-25-2024 Blood count complete automated [employer] Work Phone: Start: 03-25-2024 Chloride bld Siham Chaf fag [employer] Work Phone: Start: 03-25-2024 Culture tubercle/oth acid-fast bacilli any isol Filippo Mark MD Work Phone: Start: 03-25-2024 Blood typing serolog ic rh (d) Siapryl [employer] Work Phone: Start: 03-25-2024 End: 03-25-2024 Calcium ionized Siham [employer] Work Phone: Start: 03-25-2024 PREPARE RBC Siham Chaf fag [employer] Work Phone: Start: 03-25-2024 Urine test visual [...] stick/tabl et rgnt auto w/o microscopy Remy Nelsno MD Work Phone: Start: 04-18-2021 Radiologic exam [...] on above: Performed By: #### C /BLD ####[address] [id number] Start: 12-27-2020 Radiologic exam ches t single [...] exam ches t single view Kirston Call HUMAN SERVICES PROFESSIONAL - FOOD SERVICE WORKER Work Phone: Start: 12-21-2020 Radiologic exam ches [...] Author Start: 05-13-2027 Diabetes Screening Diabetes Screening [facility] Start: 04-01-2027 Diabetes Screening Diabetes Screening [facility] Start: 03-18-2027 Diabetes Screening Diabetes Screening [facility] Start: 01-09-2027 Diabetes Screening Diabetes Screening [facility] Start: 12-29-2026 Diabetes Screening Diabetes Screening [facility] Start: 12-29-2024 Thyroid stimulating hormone measurement [facility] Start: 11-17-2024 Annual PCP Team Chronic Disease Visit Annual PCP Team Chronic Disease Visit [facility] Start: 10-27-2024 Lipid 1996 panel - Serum or Plasma Lipid Screening [facility] Start: 10-27-2024 Lipid panel Lipid Screening [facility] Start: 10-27-2024 LIPID SCREEN LIPID SCREEN [facility] Start: 10-18-2024 Influenza vaccination Influenza Vaccine (Season Ended) [facility] Start: 06-18-2024 End: 06-18-2024 ambulatory [facility] Start: 05-31-2024 End: 05-31-2024 ambulatory [facility] Start: 05-17-2024 End: 05-17-2024 Patient encounter procedure 05/17/2024 2:20 PM EDT Office Visit Family Practice [address] [place] [address] Bijan Elmore MD [address] [place], [place] [id number] follow up [facility] Comment on above: follow up Start: 05-14-2024 ambulatory [facility] [address] [place] [address] Start: 05-04-2024 End: 08-03-2024 Basic metabolic 2000 panel - Serum or Plasma BASIC METABOLIC PANEL Lab Routine Essential hypertension Expected: 05/04/2024, Expires: 08/03/2024 [facility] Work Phone: Comment on above: Expected: 05/04/2024, Expires: Start: 05-04-2024 End: 08-03-2024 Hemoglobin A1c in Blood HEMOGLOBIN A1C Lab Routine Medication management Expected: 05/04/2024, Expires: 08/03/2024 [facility] Comment on above: Expected: 05/04/2024, Expires: Start: 04-27-2024 End: 04-27-2024 Telemedicine consultation with patient 04/27/2024 11:20 AM EDT Telemedicine [facility] [address] [place] [phone] [place] [address] [place] [address] [facility] Start: 04-26-2024 End: 04-26-2024 Patient encounter procedure 04/26/2024 11:40 AM EDT Office Visit [facility] uNbia [address] 5[address] [place] [id number] [place] [address] Department [place] [address] [facility] Start: 04-25-2024 End: 04-25-2024 [facility] Start: 04-25-2024 Microscopic observation [Identifier] in Unspecified specimen by Gram stain [facility] Start: 04-25-2024 Wound Culture Wound Culture [facility] Start: 04-19-2024 Diabetes Screening Diabetes Screening [facility] Start: 04-16-2024 End: 04-16-2024 Follow-up encounter 04/16/2024 10:40 AM EST Follow-Up [facility] [address] [place] [address] [place] [address] [place] [address] [facility] Start: 04-12-2024 End: 04-12-2024 Patient encounter procedure 04/12/2024 1:00 PM EST Office Visit [facility] [address] [facility] [address] [place] [address] [place] [address] [address] Department of [place] [address] [facility] Start: 04-11-2024 Annual PCP Team Chronic Disease Visit Annual PCP Team Chronic Disease Visit [facility] Start: 04-06-2024 End: 04-06-2024 Patient encounter procedure 04/06/2024 10:00 AM EST Office Visit [facility] Orthopedic Surgery [address] [place] [address] Di Jang PA-C [address] Department [place] [address] [facility] Orthopedic Surgery Start: 04-05-2024 End: 04-05-2024 Patient encounter procedure 04/05/2024 9:45 AM EST Office Visit [facility] [address] [facility] [address] [place] [phone] [place] [address] [address] Department of [place] [address] [facility] Start: 02-20-2024 End: 02-20-2024 Follow-up encounter 02/20/2024 10:00 AM EST Follow-Up [facility] [address] [facility] [address] [place] [phone] [place] [address] [place] [address] [facility] Start: 02-11-2024 End: 05-12-2024 Thyrotropin [Units/volume] in Serum or Plasma THYROID STIMULATING HORMONE Lab Routine Acquired hypothyroidism Expected: 02/11/2024, Expires: 05/12/2024 [facility] Work Phone: Comment on above: Expected: 02/11/2024, Expires: Start: 01-26-2024 End: 01-26-2024 Patient encounter procedure 01/26/2024 2:20 PM EST Office Visit [facility] [address] [address] Di Jang PA-C [address] Department [place] [address] [facility] Start: 01-26-2024 End: 01-26-2024 Patient encounter procedure 01/26/2024 11:40 AM EST Office Visit [facility] [address] [address] Di Jang PA-C [address] Department [place] [address] [facility] Start: 01-09-2024 End: 01-09-2024 Admission to same day surgery center [facility] [place] Comment on above: Revision Arthroplasty Partial Hip [25047 (CPT )] Excision Bone Tibia/ Fibula [03204 (CPT )] Start: 01-09-2024 End: 01-09-2024 Conv [...] physician 01/09/2024 5:20 AM EST Hospital Encounter [facility] [place] [address] [place] [address] [place] [address] Department [place] [address] [facility] [place] Start: 12-27-2023 Annual PCP Team Chronic Disease Visit Annual PCP Team Chronic Disease Visit [facility] Start: 12-25-2023 End: 12-25-2023 ambulatory 12/25/2023 2:45 PM EST Results Only [facility] [address] [facility] [place] [address] [facility] Start: 12-23-2023 End: 12-23-2023 Admission to establishment 12/23/2023 2:30 PM EST Pre-Admission Testing [facility] [address] [address] [facility] Start: 12-19-2023 End: 12-19-2023 ambulatory 12/19/2023 3:00 PM EDT Results Only [facility] [address] [address] [facility] Start: 12-19-2023 End: 03-19-2024 CBC panel - Blood by Automated count COMPLETE BLOOD COUNT Lab Routine Traumatic arthritis of left hip Essential hypertension Expected: 12/19/2023, Expires: 03/19/2024 [facility] Comment on above: Expected: 12/19/2023, Expires: Start: 12-19-2023 End: 03-19-2024 Comprehensive metabolic 2000 panel - Serum or Plasma COMPREHENSIVE METABOLIC PANEL Lab Routine Essential hypertension Chronic anxiety Expected: 12/19/2023, Expires: 03/19/2024 [facility] Work Phone: Comment on above: Expected: 12/19/2023, Expires: Start: 12-19-2023 End: 03-19-2024 Hepatitis C virus RNA [Units/volume] (viral load) in Serum or Plasma by CAPRICE with probe detection HEPATITIS C RNA QUANTIFICATION BY PCR, PLASMA/SERUM Lab Routine Chronic hepatitis C without hepatic coma (HCC) Expected: 12/19/2023, Expires: 03/19/2024 [facility] Comment on above: Expected: 12/19/2023, Expires: Start: 12-19-2023 End: 03-19-2024 Lipid 1996 panel - Serum or Plasma LIPID PANEL BASIC Lab Routine Essential hypertension Expected: 12/19/2023, Expires: 03/19/2024 [facility] Comment on above: Expected: 12/19/2023, Expires: Start: 12-19-2023 End: 03-19-2024 Thyrotropin [Units/volume] in Serum or Plasma THYROID STIMULATING HORMONE Lab Routine Acquired hypothyroidism Expected: 12/19/2023, Expires: 03/19/2024 [facility] Comment on above: Expected: 12/19/2023, Expires: Start: 12-18-2023 End: 12-18-2023 Clinical Support 12/18/2023 10:00 AM EDT Clinical Support [facility] [address] [place] [address] [facility] Start: 12-17-2023 End: 12-17-2023 Patient encounter procedure 12/17/2023 2:00 PM EDT Appointment [facility] [address] [place] [address] Essential hypertension [I10]; Newly recognized heart murmur [R01.1]rescheduled with the patient Cardiology Lab Comment on above: Essential hypertension [I10]; Newly leno gnized heart murmur [R01.1]rescheduled with the patient Start: 12-15-2023 End: 12-15-2023 Patient encounter procedure 12/15/2023 2:15 PM EDT Appointment [facility] [address] [place] [phone] [facility] Start: 12-08-2023 End: 12-08-2023 Patient encounter procedure 12/08/2023 1:20 PM EDT Appointment Cat Scan [address] [place] [address] CT TIBA Fibua RT WO IVCON Cat Scan Comment on above: CT TIBA Fibua RT WO IVCON Start: 12-03-2023 End: 12-03-2023 Patient encounter procedure 12/03/2023 2:00 PM EDT Appointment [facility] [address] [place] [address] Essential hypertension [I10]; Newly recognized heart murmur [R01.1] Cardiology Lab Comment on above: Essential hypertension [I10]; Newly leno gnized heart murmur [R01.1] Start: 12-01-2023 End: 11-30-2024 C reactive protein [Mass/volume] in Serum or Plasma [facility] Work Phone: Comment on above: Expected: 12/01/2023 (Approximate), Expi res: 11/30/2024 Start: 12-01-2023 End: 11-30-2024 CT Lower leg - right WO contrast CT tibia fibula right wo IV contrast Imaging Routine Tibial plateau fracture, right, sequela Expected: 12/01/2023 (Approximate), Expires: 11/30/2024 [facility] Service Area Work Phone: Comment on above: Expected: 12/01/2023 (Approximate), Expi res: 11/30/2024 Start: 12-01-2023 End: 11-30-2024 Erythrocyte sedimentation rate [facility] Work Phone: Comment on above: Expected: 12/01/2023 (Approximate), Expi res: 11/30/2024 Start: 12-01-2023 End: 12-01-2023 Patient encounter procedure 12/01/2023 1:20 PM EDT Office Visit [facility] [address] [facility] 5th [place] [address] [place] [address] [address] Department [place] [address] [facility] Start: 11-18-2023 End: 11-18-2023 Patient encounter procedure 11/18/2023 10:40 AM EDT Office Visit Family Practice [address] [place] [address] [place], [place] [address] Bijan Elmore MD [address] [place] [address] [place], [place] [phone] med refill Family Practice Comment on above: med refill Start: 10-19-2023 Covid-19 Vaccine ( season) Covid-19 Vaccine () [facility] Start: 10-19-2023 Covid-19 Vaccine (1 - 2024-25 season) Covid-19 Vaccine ( season) [facility] Start: 10-19-2023 Influenza vaccination [facility] Start: 10-19-2023 [facility] Start: 09-27-2023 ANNUAL PCP TEAM CHRONIC DISEASE VISIT ANNUAL PCP TEAM CHRONIC DISEASE VISIT [facility] Start: 08-25-2023 End: 08-24-2024 CT Knee - right WO contrast CT knee right wo IV contrast Imaging STAT Traumatic arthritis of right knee Expected: 08/25/2023, Expires: 08/24/2024 [facility] Work Phone: Comment on above: Expected: 08/25/2023, Expires: Start: 08-25-2023 End: 08-24-2024 CT Lower leg - right WO contrast CT tibia fibula right wo IV contrast Imaging STAT Pain of right tibia Expected: 08/25/2023, Expires: 08/24/2024 [facility] Work Phone: Comment on above: Expected: 08/25/2023, Expires: Start: 08-25-2023 End: 08-10-2024 XR Knee - right 1 or 2 Views [facility] Service Area Work Phone: Comment on above: Expected: 08/25/2023, Expires: 5 Once for 1 Occurrenc es starting 08/25/2023 until 08/25/2023 Start: 08-25-2023 End: 08-10-2024 XR Tibia and Fibula - right 2 Views [facility] Work Phone: Comment on above: Expected: 08/25/2023, Expires: 5 Once for 1 Occurrenc es starting 08/25/2023 until 08/25/2023 Start: 08-11-2023 End: 08-11-2023 Patient encounter procedure 08/11/2023 1:00 PM EDT Office Visit [facility] [address] [facility] 5th [place] [address] [place] [address] Department [place] [address] [facility] Start: 06-30-2023 End: 06-30-2023 Patient encounter procedure 06/30/2023 11:00 AM EDT Office Visit [facility] [address] [facility] 5th [place] [address] [place] [address] [address] Department of Orthopedics [place] [phone] [facility] Start: 06-18-2023 COVID-19 Vaccine (#1) COVID-19 Vaccine (#1) [facility] Comment on above: Postponed from 1972 (Patient Refus ed) Start: 06-18-2023 DTaP/Tdap/Td Vaccines (1 - Tdap) DTaP/Tdap/Td Vaccines (1 - Tdap) [facility] Comment on above: Postponed from 12/19/2020 (Patient Refus ed) Start: 06-18-2023 Pneumococcal Vaccine: Pediatrics (0 to 5 Years) and At-Risk Patients (6 to 64 Years) (2 - PPSV23 if available, else PCV20) Pneumococcal Vaccine: Pediatrics (0 to 5 Years) and At-Risk Patients (6 to 64 Years) (2 - PPSV23 if available, else PCV20) [facility] Comment on above: Postponed from 01/31/2022 (Patient Refus ed) Start: 06-18-2023 Zoster Vaccines (1 of 2) Zoster Vaccines (1 of 2) [facility] Comment on above: Postponed from 02/28/2022 (Patient Refus ed) Start: 06-12-2023 End: 06-11-2024 CT Hip - left WO contrast CT hip left wo IV contrast Imaging Routine Hip pain, chronic, left Expected: 06/12/2023, Expires: 06/11/2024 [facility] Work Phone: Comment on above: Expected: 06/12/2023, Expires: Start: 06-12-2023 End: 06-09-2024 XR Hip Views [facility] Service Area Work Phone: Comment on above: Expected: 06/12/2023, Expires: 5 Once for 1 Occurrenc es starting 06/12/2023 until 06/12/2023 Start: 06-12-2023 End: 06-11-2024 XR Knee - right 1 or 2 Views [facility] Work Phone: Comment on above: Expected: 06/12/2023, Expires: 5 Once for 1 Occurrenc es starting 06/12/2023 until 06/12/2023 Start: 06-12-2023 End: 06-11-2024 XR Tibia and Fibula - right 2 Views [facility] Work Phone: Comment on above: Expected: 06/12/2023, Expires: 5 Once for 1 Occurrenc es starting 06/12/2023 until 06/12/2023 Start: 04-11-2023 DIABETES SCREEN DIABETES SCREEN [facility] Start: 04-11-2023 Diabetes Screening Diabetes Screening [facility] Start: 03-26-2023 End: 06-25-2023 CBC panel - Blood by Automated count CBC Lab Routine Seizures (HCC) Expected: 03/26/2023, Expires: 06/25/2023 [facility] Work Phone: Comment on above: Expected: 03/26/2023, Expires: Start: 03-26-2023 End: 06-25-2023 Comprehensive metabolic 2000 panel - Serum or Plasma COMP METABOLIC PANEL Lab Routine Hypertension, essential Expected: 03/26/2023, Expires: 06/25/2023 [facility] Work Phone: Comment on above: Expected: 03/26/2023, Expires: Start: 02-17-2023 Behavioral Health Screening Behavioral Health Screening [facility] Start: 02-17-2023 Depression Assessment Depression Assessment [facility] Start: 12-18-2022 Depresssion Monitoring Depresssion Monitoring [facility] Start: 11-27-2022 End: 01-27-2023 CBC panel - Blood by Automated count CBC Lab Routine Hypertension, essential Hypothyroidism, acquired Chronic anxiety Expected: 11/27/2022, Expires: 01/27/2023 [facility] Work Phone: Comment on above: Expected: 11/27/2022, Expires: Start: 11-27-2022 End: 01-27-2023 Comprehensive metabolic 2000 panel - Serum or Plasma COMP METABOLIC PANEL Lab Routine Hypertension, essential Expected: 11/27/2022, Expires: 01/27/2023 [facility] Work Phone: Comment on above: Expected: 11/27/2022, Expires: Start: 11-27-2022 End: 01-27-2023 Lipid 1996 panel - Serum or Plasma LIPID PANEL BASIC Lab Routine Screening for lipid disorders Expected: 11/27/2022, Expires: 01/27/2023 [facility] Work Phone: Comment on above: Expected: 11/27/2022, Expires: 3 Start: 11-27-2022 End: 01-27-2023 Thyrotropin [Units/volume] in Serum or Plasma TSH BLD Lab Routine Hypothyroidism, acquired Expected: 11/27/2022, Expires: 01/27/2023 [facility] Work Phone: Comment on above: Expected: 11/27/2022, Expires: 3 Start: 10-18-2022 Covid-19 Vaccine () Covid-19 Vaccine () [facility] Start: 10-18-2022 Influenza vaccination [facility] Start: 09-26-2022 End: 11-26-2022 CBC panel - Blood by Automated count CBC Lab Routine Chronic left hip pain Chronic ulcer of right leg, 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) Expected: 09/26/2022, Expires: 11/26/2022 [facility] Work Phone: Comment on above: Expected: 09/26/2022, Expires: Start: 09-26-2022 End: 11-26-2022 Comprehensive metabolic 2000 panel - Serum or Plasma COMP METABOLIC PANEL Lab Routine Seizures (HCC) Hypertension, essential Expected: 09/26/2022, Expires: 11/26/2022 [facility] Work Phone: Comment on above: Expected: 09/26/2022, Expires: 3 Start: 09-26-2022 End: 11-26-2022 Lipid 1996 panel - Serum or Plasma LIPID PANEL BASIC Lab Routine Screening for lipid disorders Expected: 09/26/2022, Expires: 11/26/2022 [facility] Work Phone: Comment on above: Expected: 09/26/2022, Expires: 3 Start: 09-26-2022 End: 11-26-2022 Thyrotropin [Units/volume] in Serum or Plasma TSH BLD Lab Routine Hypothyroidism, acquired Expected: 09/26/2022, Expires: 11/26/2022 [facility] Work Phone: Comment on above: Expected: 09/26/2022, Expires: 3 Start: 09-17-2022 Adult depression screening assessment DEPRESSION SCREENING [facility] Start: 09-17-2022 ANNUAL PCP TEAM CHRONIC DISEASE VISIT ANNUAL PCP TEAM CHRONIC DISEASE VISIT [facility] Start: 09-17-2022 BP CONTROLLED (<130/80) BP CONTROLLED (<130/80) [facility] Start: 07-12-2022 ANNUAL PCP TEAM CHRONIC DISEASE VISIT ANNUAL PCP TEAM CHRONIC DISEASE VISIT [facility] Start: 07-03-2022 End: 07-03-2022 Patient encounter procedure 07/03/2022 Office Visit Family Medicine Isiah Quan MD [address], [place] [address] [facility] Start: 06-26-2022 ANNUAL PCP TEAM CHRONIC DISEASE VISIT ANNUAL PCP TEAM CHRONIC DISEASE VISIT [facility] Start: 06-26-2022 BP CONTROLLED (<130/80) BP CONTROLLED (<130/80) [facility] Start: 04-17-2022 End: 04-17-2022 Patient encounter procedure 04/17/2022 Office Visit Orthopedic Surgery Cass Guzman MD [address] [place] [address] [facility] Start: 04-09-2022 End: 04-09-2023 XR Hip - left 3 Views XR hip left 2 or 3 views Imaging Routine Left hip pain Expected: 04/09/2022, Expires: 04/09/2023 [facility] Work Phone: Comment on above: Expected: 04/09/2022, Expires: Start: 04-03-2022 End: 04-03-2023 Hepatitis C virus RNA panel (viral load) in Serum or Plasma by CAPRICE with probe detection Hepatitis C viral load Lab Routine Traumatic open wound of right lower leg with infection, initial encounter MRSA infection Expected: 04/03/2022 (Approximate), Expires: 04/03/2023 [facility] Work Phone: Comment on above: Expected: 04/03/2022 (Approximate), Expi res: 04/03/2023 Start: 03-29-2022 End: 03-29-2022 Patient encounter procedure 03/29/2022 Appointment Wound Care Pacheco Boothe, [address] [place] [address] [facility] Start: 03-18-2022 End: 03-18-2022 Patient encounter procedure 03/18/2022 Office Visit Orthopedic Surgery Cass Guzman MD [address] [place] [address] [facility] [place] Start: 03-18-2022 End: 03-18-2022 Documentation procedure 03/18/2022 Documentation Orthopedic Surgery [facility] [place] Start: 03-14-2022 End: 03-14-2022 Patient encounter procedure Infect Disease - [place] Start: 03-05-2022 End: 03-05-2022 Patient encounter procedure 03/05/2022 Office Visit Infectious Diseases Jarvis Almonte MD [address] [place], [place] [id number] [facility] [place] Start: 03-01-2022 End: 03-01-2022 Patient encounter procedure 03/01/2022 Appointment Wound Care Pacheco Boothe DO [address] [place], [place] [id number] [facility] Start: 02-28-2022 SHINGRIX VACCINE (1 of 2) SHINGRIX VACCINE (1 of 2) [facility] Start: 02-28-2022 Zoster Vaccines (1 of 2) Zoster Vaccines (1 of 2) [facility] Start: 02-28-2022 [facility] Start: 02-17-2022 DEPRESSION ASSESSMENT DEPRESSION ASSESSMENT [facility] Start: 01-31-2022 PNEUMOCOCCAL (2 - PPSV23 if available, else PCV20) PNEUMOCOCCAL (2 - PPSV23 if available, else PCV20) [facility] Start: 01-31-2022 PNEUMOCOCCAL (2 - PPSV23 or PCV20) PNEUMOCOCCAL (2 - PPSV23 or PCV20) [facility] Start: 01-31-2022 Pneumococcal 0-64 years Vaccine (2 - PPSV23 or PCV20) Pneumococcal 0-64 years Vaccine (2 - PPSV23 or PCV20) [facility] Start: 01-31-2022 Pneumococcal Vaccine: Pediatrics (0 to 5 Years) and At-Risk Patients (6 to 64 Years) (2 - PPSV23 if available, else PCV20) Pneumococcal Vaccine: Pediatrics (0 to 5 Years) and At-Risk Patients (6 to 64 Years) (2 - PPSV23 if available, else PCV20) [facility] Start: 10-18-2021 End: 10-18-2021 Patient encounter procedure 10/18/2021 Appointment Vascular Lab Cass Guzman MD [address] [place] [address] [facility] Start: 10-18-2021 Influenza vaccination [facility] Start: 10-15-2021 End: 10-15-2021 Patient encounter procedure 10/15/2021 Office Visit Ophthalmology Jyoti Ni MD [address] [place] [address] [facility] Start: 09-05-2021 [facility] Work Phone: Start: 08-29-2021 End: 10-29-2021 Thyrotropin [Units/volume] in Serum or Plasma TSH BLD Lab Routine Hypothyroidism, acquired Expected: 08/29/2021, Expires: 10/29/2021 [facility] Work Phone: Comment on above: Expected: 08/29/2021, Expires: Start: 05-17-2021 End: 05-17-2021 Evaluation and management of inpatient 05/17/2021 Office Visit Ophthalmology Jyoti Ni MD [address] [place], [place] [phone] [facility] Start: 03-28-2021 PNEUMOCOCCAL (2 - PPSV23 if available, else PCV20) PNEUMOCOCCAL (2 - PPSV23 if available, else PCV20) [facility] Start: 03-28-2021 PNEUMOCOCCAL (2 - PPSV23 or PCV20) PNEUMOCOCCAL (2 - PPSV23 or PCV20) [facility] Start: 03-28-2021 Pneumococcal 0-64 years Vaccine (2 of 4 - PPSV23) Pneumococcal 0-64 years Vaccine (2 of 4 - PPSV23) [facility] Start: 03-28-2021 Pneumococcal vaccination [facility] Start: 03-28-2021 Pneumococcal Vaccine: 50+ (2 of 2 - PPSV23) Pneumococcal Vaccine: 50+ (2 of 2 - PPSV23) [facility] Start: 03-28-2021 Pneumococcal Vaccine: Pediatrics (0 to 5 Years) and At-Risk Patients (6 to 64 Years) (2 of 2 - PPSV23 or PCV20) Pneumococcal Vaccine: Pediatrics (0 to 5 Years) and At-Risk Patients (6 to 64 Years) (2 of 2 - PPSV23 or PCV20) [facility] Start: 03-28-2021 [facility] Start: 02-28-2021 Meningococcal B vaccine (2 of 4 - Increased Risk Bexsero 2-dose series) Meningococcal B vaccine (2 of 4 - Increased Risk Bexsero 2-dose series) [facility] Start: 02-28-2021 Meningococcal B Vaccine (2 of 5 - Increased Risk Bexsero 3-dose series) Meningococcal B Vaccine (2 of 5 - Increased Risk Bexsero 3-dose series) [facility] Start: 02-28-2021 Meningococcal B Vaccine: Consider Based On Risk (2 of 4 - Increased Risk Bexsero 2-dose series) Meningococcal B Vaccine: Consider Based On Risk (2 of 4 - Increased Risk Bexsero 2-dose series) [facility] Start: 02-28-2021 MENINGOCOCCAL B: Consider based on risk (2 of 4 - Increased Risk Bexsero 2-dose series) MENINGOCOCCAL B: Consider based on risk (2 of 4 - Increased Risk Bexsero 2-dose series) [facility] Start: 02-17-2021 DEPRESSION ASSESSMENT DEPRESSION ASSESSMENT [facility] Start: 12-19-2020 DTaP/Tdap/Td vaccine (1 - Tdap) DTaP/Tdap/Td vaccine (1 - Tdap) [facility] Start: 12-19-2020 DTaP/Tdap/Td Vaccines (1 - Tdap) DTaP/Tdap/Td Vaccines (1 - Tdap) [facility] Start: 12-19-2020 Urine microalbumin profile [facility] Start: 12-19-2020 [facility] Start: 12-10-2020 HEPATITIS A (3 of 3 - Hep A Twinrix risk 3-dose series) HEPATITIS A (3 of 3 - Hep A Twinrix risk 3-dose series) [facility] Start: 12-10-2020 Hepatitis A vaccine (3 of 3 - Hep A Twinrix risk 3-dose series) Hepatitis A vaccine (3 of 3 - Hep A Twinrix risk 3-dose series) [facility] Start: 12-10-2020 Hepatitis A Vaccines (3 of 3 - Hep A Twinrix risk 3-dose series) Hepatitis A Vaccines (3 of 3 - Hep A Twinrix risk 3-dose series) [facility] Start: 12-10-2020 HEPATITIS B (3 of 3 - Hep B Twinrix risk 3-dose series) [facility] Start: 12-10-2020 Hepatitis B Vaccine (3 of 3 - Hep B Twinrix 3-dose series) Hepatitis B Vaccine (3 of 3 - Hep B Twinrix 3-dose series) [facility] Start: 12-10-2020 Hepatitis B vaccine (3 of 3 - Hep B Twinrix risk 3-dose series) Hepatitis B vaccine (3 of 3 - Hep B Twinrix risk 3-dose series) [facility] Start: 12-10-2020 Hepatitis B Vaccines (3 of 3 - Hep B Twinrix 3-dose series) Hepatitis B Vaccines (3 of 3 - Hep B Twinrix 3-dose series) [facility] Start: 12-10-2020 [facility] Start: 10-18-2020 Influenza vaccination [facility] (#[facility] Start: 10-18-2020 [facility] Start: 10-05-2020 Adult depression screening assessment DEPRESSION SCREENING [facility] Start: 06-05-2019 PAP TESTING PAP TESTING [facility] Start: 06-05-2019 Screening for malignant neoplasm of cervix Pap Testing [facility] Start: 10-18-2018 Influenza vaccination Flu vaccine (#1) [employer] Start: 06-04-2017 Screening for malignant neoplasm of cervix Cervical Cancer Screening [facility] Start: 02-28-2017 COLOGUARD (FIT-DNA) COLOGUARD (FIT-DNA) [facility] Start: 02-28-2017 Colonoscopy COLONOSCOPY [facility] Start: 02-28-2017 COLORECTAL CANCER SCREENING COLORECTAL CANCER SCREENING [facility] Start: 02-28-[address] COLONOGRAPHY [facility] Start: 02-28-2017 FECAL OCCULT BLOOD FECAL OCCULT BLOOD [facility] Start: 02-28-2017 Screening for malignant neoplasm of colon [facility] Start: 02-28-2017 SIGMOIDOSCOPY SIGMOIDOSCOPY [facility] Start: [address] [facility] Start: 2012 Lipid screen Lipid screen [employer] Start: 2012 Mammography [facility] Start: 2012 Screening for malignant neoplasm of breast [facility] Start: 2012 [facility] Start: 03-03-2009 MMR Vaccines (1 of 1 - Standard series) MMR Vaccines (1 of 1 - Standard series) [facility] Start: 02-28-2007 Diabetes screen Diabetes screen [facility] Start: 02-28-2002 HPV TESTING HPV TESTING [facility] Start: 02-28-2002 Screening for malignant neoplasm of cervix [facility] Start: 02-28-1993 Cervical cancer screen Cervical cancer screen [place], [place] Start: 02-28-1993 Screening for malignant neoplasm of cervix [facility] Start: 02-28-1991 Hepatitis B vaccine (1 of 3 - Risk 3-dose series) Hepatitis B vaccine (1 of 3 - Risk 3-dose series) [place], [place] Start: 02-28-1991 ONE PNEUMOVAX PRIOR TO AGE 65 ONE PNEUMOVAX PRIOR TO AGE 65 [facility] Start: 02-28-1991 SHINGRIX VACCINE (1 of 2) SHINGRIX VACCINE (1 of 2) [facility] Start: 02-28-1991 Urine microalbumin profile DTAP,TDAP,TD (1 - Tdap) [facility] Start: 02-28-1990 BP CONTROLLED (<130/80) BP CONTROLLED (<130/80) [facility] Start: 02-28-1990 Depression Screening Depression Screening [facility] Start: 02-28-1990 Diabetes mellitus screening [facility] Start: 02-28-1987 HIV screen HIV screen [place], [place] Start: 02-28-[address] [facility] Start: 1984 Depression Monitoring Depression Monitoring [facility] Start: 1984 [facility] Start: 02-28-1983 DTaP/Tdap/Td vaccine (1 - Tdap) DTaP/Tdap/Td vaccine (1 - Tdap) [place], [place] Start: 02-28-1982 MENINGOCOCCAL B: Consider based on risk (1 of 4 - Increased Risk Bexsero 2-dose series) MENINGOCOCCAL B: Consider based on risk (1 of 4 - Increased Risk Bexsero 2-dose series) [facility] Start: 02-28-1978 Pneumococcal 0-64 years Vaccine (1 of 1 - PPSV23) Pneumococcal 0-64 years Vaccine (1 of 1 - PPSV23) [place], [place] Start: 02-28-1978 [facility] Start: 02-28-1977 COVID-19 VACCINE (#1) COVID-19 VACCINE (#1) [facility] Start: 02-28-1977 COVID-19 Vaccine (1) COVID-19 Vaccine (1) [facility] Start: 02-28-1974 MENINGOCOCCAL CONJUGATE (1 - Risk 2-dose series) MENINGOCOCCAL CONJUGATE (1 - Risk 2-dose series) [facility] Start: 02-28-1974 Meningococcal Conjugate Vaccine (1 - Risk 2-dose series) Meningococcal Conjugate Vaccine (1 - Risk 2-dose series) [facility] Start: 02-28-1973 Hepatitis A vaccine (1 of 2 - Risk 2-dose series) [place], [place] Start: 1972 Meningococcal (ACWY) vaccine (1 - Risk start 2-23 months series) Meningococcal (ACWY) vaccine (1 - Risk start 2-23 months series) [facility] Start: 1972 MENINGOCOCCAL CONJUGATE (1 - Risk start 2-23 months series) MENINGOCOCCAL CONJUGATE (1 - Risk start 2-23 months series) [facility] Start: 1972 COVID-19 VACCINE (#1) COVID-19 VACCINE (#1) [facility] Start: [address] [facility] Start: 1972 HIV screening HIV Screening [facility] Start: 1972 Lipid panel [facility] Start: 1972 Screening for malignant neoplasm of colon [facility] Start: 1972 Yearly Adult Physical Yearly Adult Physical [facility] Start: 1972 [facility] [employer] [facility] Work Phone: End: 12-24-[address] [facility] Work Phone: [employer]B [employer]ain [facility] Work Phone: Bacteria identified in Unspecified specimen by Culture [facility] Work Phone: Bacteria identified in Wound by Culture WOUND CULTURE AND GRAM STAIN Microbiology Routine Leg wound, right, initial encounter Ordered: 06/12/2021 [facility] Work Phone: Comment on above: Ordered: 06/12/2021 Basic metabolic 2000 panel - Serum or Plasma [facility] Work Phone: End: 01-15-2025 Basic metabolic 2000 panel - Serum or Plasma Basic metabolic panel Lab Routine Tibia and fibula open fracture, right, sequela Once a week for 8 Occurrences starting 01/16/2024 until 01/15/2025 [facility] Work Phone: Comment on above: Once a week for 8 Occurrences starting 1 03/17/2023 until 01/15/2025 Basic metabolic 2000 panel - Serum or Plasma Basic metabolic panel Lab Routine Daily (Lab) until discontinued starting 03/13/2024, 6 completed [facility] Work Phone: Comment on above: Daily (Lab) until discontinued starting 03/13/2024, 6 completed End: 04-02-2024 Basic metabolic 2000 panel - Serum or Plasma Basic metabolic panel Lab Routine Morning draw (Lab) for 3 Occurrences starting 03/31/2024 until 04/02/2024, 2 completed [facility] Work Phone: Comment on above: Morning draw (Lab) for 3 Occurrences sta rting 03/31/2024 until 04/02/2024, 2 completed End: 01-15-2025 C reactive protein [Mass/volume] in Serum or Plasma C-Reactive Protein Lab Routine Tibia and fibula open fracture, right, sequela Once a week for 8 Occurrences starting 01/16/2024 until 01/15/2025 [facility] Work Phone: Comment on above: Once a week for 8 Occurrences starting 03/17/2023 until 01/15/2025 End: 03-31-2025 C reactive protein [Mass/volume] in Serum or Plasma C-Reactive Protein Lab Routine Chronic multifocal osteomyelitis of right tibia (Multi) Every 2 weeks for 5 Occurrences starting 03/31/2024 until 03/31/2025 [facility] Work Phone: Comment on above: Every 2 weeks for 5 Occurrences starting 03/31/2024 until 03/31/2025 End: 05-10-2025 C reactive protein [Mass/volume] in Serum or Plasma [facility] Work Phone: End: 05-12-2025 C reactive protein [Mass/volume] in Serum or Plasma [facility] Work Phone: CBC auto differential CBC auto d ifferential Lab Routine Daily until discontinued starting 01/06/2019, 5 completed [place], [place] Comment on above: Daily until discontinued starting 2018, 5 completed CBC panel - Blood by Automated count CBC Lab Today Hypertension, essential Ordered: 06/26/2021 [facility] Work Phone: Comment on above: Ordered: 06/26/2021 End: 04-02-2024 CBC panel - Blood by Automated count CBC Lab Routine Morning draw (Lab) for 3 Occurrences starting 03/31/2024 until 04/02/2024, 2 completed [facility] Service [facility] Work Phone: Comment on above: Morning draw (Lab) for 3 Occurrences sta rting 03/31/2024 until 04/02/2024, 2 completed End: 03-31-2025 CBC panel - Blood by Automated count CBC Lab Routine Chronic multifocal osteomyelitis of right tibia (Multi) Every 2 weeks for 5 Occurrences starting 03/31/2024 until 03/31/2025 [facility] Service [facility] Work Phone: Comment on above: Every 2 weeks for 5 Occurrences starting 03/31/2024 until 03/31/2025 End: 05-25-2024 CBC panel - Blood by Automated count [facility] Work Phone: CBC W Auto Different ial panel - Blood [facility] Work Phone: End: 01-15-2025 CBC W Auto Differential panel - Blood CBC and Auto Differential Lab Routine Tibia and fibula open fracture, right, sequela Once a week for 8 Occurrences starting 01/16/2024 until 01/15/2025 [facility] Work Phone: Comment on above: Once a week for 8 Occurrences starting 1 03/17/2023 until 01/15/2025 End: 05-10-2025 CBC W Auto Differential panel - Blood [facility] Work Phone: End: 05-12-2025 CBC W Auto Differential panel - Blood [facility] Work Phone: Chest physiotherapy [facility] Work Phone: Comprehensive metabo lic 2000 panel Comprehensive Metabolic Panel Lab Routine Daily until discontinued starting 01/07/2019, 4 completed [place], [place] Comment on above: Daily until discontinued starting 2018, 4 completed End: 03-31-2025 Comprehensive metabolic 2000 panel - Serum or Plasma Comprehensive metabolic panel Lab Routine Chronic multifocal osteomyelitis of right tibia (Multi) Every 2 weeks for 5 Occurrences starting 03/31/2024 until 03/31/2025 [facility] Work Phone: Comment on above: Every 2 weeks for 5 Occurrences starting 03/31/2024 until 03/31/2025 End: 05-10-2025 Comprehensive metabolic 2000 panel - Serum or Plasma [facility] Work Phone: End: 05-24-2024 Comprehensive metabolic 2000 panel - Serum or Plasma [facility] Work Phone: End: 05-12-2025 Comprehensive metabolic 2000 panel - Serum or Plasma [facility] Work Phone: End: 01-09-2024 Continuous Pulse oximetry, In Phase 1 Continuous Pulse oximetry, In Phase 1 Respiratory Care Routine Continuous until discontinued starting 01/09/2024 [facility] Work Phone: Comment on above: Continuous until discontinued starting 1 03/10/2023 End: 05-10-2025 Creatine kinase [Enzymatic activity/volume] in Serum or Plasma [facility] Work Phone: End: 05-12-2025 Creatine kinase [Enzymatic activity/volume] in Serum or Plasma [facility] Work Phone: End: 07-07-2023 CT Hip - left WO contrast [facility] Work Phone: Comment on above: Once for 1 Occurrences starting 07/07/19 until 07/07/2023 End: 12-15-2023 CT Knee - right WO contrast [facility] Service Area Work Phone: Comment on above: Once for 1 Occurrences starting 12/15/19 until 12/15/2023 End: 12-15-2023 CT Lower leg - right WO contrast [facility] Service [facility] Work Phone: Comment on above: Once for 1 Occurrences starting 12/15/19 24 until 12/15/2023 Culture with Smear, Acid Fast Bacillius [facility] Work Phone: Culture, Blood 2 [facility] Work Phone: Culture, Respiratory [facility] Work Phone: End: 06-24-2025 DBT Breast - bilateral screening IVÁN SCREENING W DANA Radiology Routine Encounter for screening mammogram for breast cancer 1 Occurrences starting 05/25/2024 until 06/24/2025 [facility] Work Phone: Comment on above: 1 Occurrences starting 05/25/2024 until 06/24/2025 Dressing Order: Lucio agen Ag; Every other day; 4x4 gauze; Kerlex, Silk tape; Single layer tubigrip Dressing Order: Collagen Ag; Every other day; 4x4 gauze; Kerlex, Silk tape; Single layer tubigrip Wound Ostomy Routine Ordered: 03/15/2022 [employer] Work Phone: Comment on above: Ordered: 03/15/2022 ECG 12 Lead ECG 12 Lead ECG STAT 01/10/2024 12:25 PM EST [facility] Work Phone: ECG COMPLETE ECG COMPLETE ECG Routine Essential hypertension Newly recognized heart murmur Ordered: 11/18/2023 [facility] Comment on above: Ordered: 11/18/2023 End: 11-17-2024 Echocardiography ECHO Cardiology Routine Essential hypertension Newly recognized heart murmur 1 Occurrences starting 11/18/2023 until 11/17/2024 [facility] Comment on above: 1 Occurrences starting 11/18/2023 until 11/17/2024 Electrocardiogram, 12-lead PRN ACS symptoms Electrocardiogram, 12-lead PRN ACS symptoms ECG Routine As needed until discontinued starting 01/09/2024 [facility] Work Phone: Comment on above: As needed until discontinued starting Electrocardiogram, 12-lead PRN ACS symptoms [facility] Work Phone: Comment on above: As needed until discontinued starting Electrocardiogram, 12-lead PRN ACS symptoms Electrocardiogram, 12-lead PRN ACS symptoms ECG Routine As needed until discontinued starting 03/25/2024 [facility] Work Phone: Comment on above: As needed until discontinued starting Electrocardiogram, 12-lead PRN ACS symptoms [facility] Work Phone: Electrocardiogram, 12-lead PRN ACS symptoms [facility] Work Phone: End: 12-18-2020 [place] Greater Than [...] for 1 Occurrences starting 03/25/2024 until 03/25/2024 [facility] Work Phone: Comment on above: Once for 1 Occurrences starting 03/25/19 until 03/25/2024 End: 03-25-2024 Free Flap Reconstruction Site Free Flap Reconstruction Site Wound Ostomy Routine Once for 1 Occurrences starting 03/25/2024 until 03/25/2024 [facility] Service Area Work Phone: Comment on above: Once for 1 Occurrences starting 03/25/19 until 03/25/2024 Fungus identified in Unspecified specimen by Culture [facility] Work Phone: Fungus identified in Unspecified specimen by Culture [facility] Work Phone: Fungus identified in Unspecified specimen by Culture Fungal Culture/Smear Microbiology Routine 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, unspecified fracture morphology, subsequent encounter 03/25/2024 9:34 AM EST [facility] Work Phone: Fungus identified in Unspecified specimen by Culture [facility] Work Phone: End: 12-19-2020 Glucose [Mass/volume] in Serum or Plasma [facility] Work Phone: High Frequency Chest Wall Oscillation (HFCWO) [facility] Work Phone: Incentive spirometry Incentive s pirometry Respiratory Care Routine Every 2hr while awake until discontinued starting 01/05/2019 [facility] Comment on above: Every 2hr while awake until discontinued starting 01/05/2019 End: 01-09-2024 Incentive spirometry Instruct Incentive spirometry Instruct Respiratory Care Routine Once for 1 Occurrences starting 01/09/2024 until 01/09/2024 [facility] Work Phone: Comment on above: Once for 1 Occurrences starting 01/09/20 24 until 01/09/2024 End: 03-11-2024 Incentive spirometry Instruct Incentive spirometry Instruct Respiratory Care Routine Once for 1 Occurrences starting 03/11/2024 until 03/11/2024 [facility] Work Phone: Comment on above: Once for 1 Occurrences starting 03/11/19 25 until 03/11/2024 End: 04-26-2024 Incentive spirometry Instruct [facility] Work Phone: End: 05-05-2024 Incentive spirometry Instruct [facility] Work Phone: Initiate Oxygen Ther apy Protocol Initiate Oxygen Therapy Protocol Respiratory Care Routine Daily until discontinued starting 01/05/2019 [facility] Comment on above: Daily until discontinued starting 2018 End: 08-16-2023 IVÁN SCREENING IVÁN SCREENING Radiology Routine Encounter for screening mammogram for breast cancer 1 Occurrences starting 07/17/2022 until 08/16/2023 [facility] Work Phone: Comment on above: 1 Occurrences starting 07/17/2022 until 08/16/2023 Mechanical Ventilati on with default initial settings [facility] Work Phone: End: 04-18-2021 Medication Assisted Treatment Panel Medication Assisted Treatment Panel Lab Add-On One Time for 1 Occurrences starting 04/18/2021 until 04/18/2021 [facility] Work Phone: Comment on above: One Time for 1 Occurrences starting 03/2021 until 04/18/2021 End: 07-24-2024 MG Breast Screening IVÁN SCREENING Radiology Routine Encounter for screening mammogram for breast cancer 1 Occurrences starting 06/25/2023 until 07/24/2024 [facility] Work Phone: Comment on above: 1 Occurrences starting 06/25/2023 until 07/24/2024 End: 12-28-2020 Microscopic examination of blood, culture [facility] Work Phone: Mycobacterium sp identified in Unspecified specimen by Organism specific culture AFB Culture/Smear Microbiology Routine 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 AUREUS PBP2A TEST FOR S. AUREUS Lab Routine Once for 1 Occurrences starting 01/05/2019 until 01/05/2019 [employer] Comment on above: Once for 1 Occurrences starting 01/06/20 19 until 01/05/2019 PBP2A TEST FOR S. AUREUS PBP2A T EST FOR S. AUREUS Lab Routine 01/05/2019 4:30 PM EST [facility] End: 05-04-2024 Prepare RBC: 1 [facility] Work Phone: Procalcitonin [facility] Work Phone: RADIOLOGY REPORT [facility] Work Phone: End: 01-09-2024 Renal function 2000 panel - Serum or Plasma Renal Function Panel Lab STAT STAT (Lab) for 1 Occurrences starting 01/09/2024 until 01/09/2024 [facility] Service Area Work Phone: Comment on above: STAT (Lab) for 1 Occurrences starting until 01/09/2024 RT Communication Order [facility] Work Phone: RT Communication Order [facility] Work Phone: RT Communication Order [facility] Work Phone: End: 09-14-2022 Screening mammography bi 2-view breast inc cad IVÁN SCREENING Radiology Routine Encounter for screening mammogram for breast cancer 1 Occurrences starting 08/15/2021 until 09/14/2022 [facility] Work Phone: Comment on above: 1 Occurrences starting 08/15/2021 until 09/14/2022 Spirometry panel [facility] Work Phone: End: 01-28-2021 Spirometry panel [facility] Work Phone: Spontaneous Breathin g Trial (SBT) [facility] Work Phone: Surgical pathology study [facility] Service Area Work Phone: Thyrotropin [Units/volume] in Serum or Plasma TSH BLD Lab Today Hypothyroidism, acquired Ordered: 06/26/2021 [facility] Work Phone: Comment on above: Ordered: 06/26/2021 End: 01-05-2019 Tissue Homogenization Tissue Homogenization Lab Routine Once for 1 Occurrences starting 01/05/2019 until 01/05/2019 [facility] Comment on above: Once for 1 Occurrences starting 01/06/20 19 until 01/05/2019 Tissue Homogenization Tissue Felix ogenization Lab Routine 01/05/2019 8:22 PM EST [facility] End: 01-18-2024 Vancomycin [Mass/volume] in Serum or Plasma Vancomycin Lab Routine Morning draw (Lab) for 1 Occurrences starting 01/18/2024 until 01/18/2024 [facility] Work Phone: Comment on above: Morning draw (Lab) for 1 Occurrences sta rting 01/18/2024 until 01/18/2024 VL LOWER EXTREMITY BILATERAL VENOUS DUPLEX [facility] Work Phone: Wound microscopy, cu lture and sensitivities [facility] End: 01-08-2019 Wound ostomy eval and treat Wound ostomy eval and treat Wound Ostomy Routine One Time for 1 Occurrences starting 01/08/2019 until 01/08/2019 [facility] [place] Comment on above: One Time for 1 Occurrences starting 12/19 until 01/08/2019 XR CHEST PORTABLE [facility] Work Phone: End: 04-17-2022 XR Hip - left 3 Views [facility] [employer] Work Phone: Comment on above: Once for 1 Occurrences starting 04/18/19 23 until 04/17/2022 End: 05-15-2021 XR WRIST LEFT [address] [facility] Work Phone: Comment on above: Once for 1 Occurrences starting 05/16/19 22 until 05/15/2021 [facility] Immunizations Immunization Date Immunization Notes Care Provider [facility] 02-04-2021 haemophilus influenz ae type b vaccine, PRP-T conjugate Bell Scott MD Work Phone: [facility] 01-31-2021 meningococcal B vacc ine, recombinant, OMV, adjuvanted Bell Scott MD Work Phone: [facility] Work Phone: 01-31-2021 pneumococcal conjuga te vaccine, 13 valent Bell Scott MD Work Phone: [facility] 12-18-2020 tetanus and diphther ia toxoids, adsorbed, preservative free, for adult use (5 Lf of tetanus toxoid and 2 Lf of diphtheria toxoid) Adalberto Mcqueen MD Work Phone: [facility] 07-10-2020 hepatitis A and hepatitis B vaccine Bijan Elmore MD Work Phone: [facility] Work Phone: 07-10-2020 hepatitis B vaccine, unspecified formulation Bijan Elmore MD Work Phone: [facility] 03-13-2020 hepatitis A and hepatitis B vaccine Bijan Elmore MD Work Phone: [facility] Work Phone: 02-07-2017 influenza virus vacc ine, unspecified formulation Bijan Elmore MD Work Phone: [facility] 06-05-2015 pneumococcal conjuga te vaccine, 13 valent Bijan Elmore MD Work Phone: [facility] 02-03-2009 novel influenza-H1N1 -09, preservative-free, injectable Bijan Elmore MD Work Phone: [facility] 02-03-2009 influenza virus vacc ine, unspecified formulation [facility] 02-28-1973 measles, mumps and rubella virus vaccine Bijan Elmore MD Work Phone: [facility] Payers Date Payer Category Payer Self-pay [id number] 2023 Medicaid (Managed Care) 1.2. [id number] 2023 Private Health Insurance 2018 Private Health Insurance [facility] xxxxxxxxx 2018-Present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 Encounter - Carlo Miranda LPN - 06/09/2023 10:22 AM EDT Pharmacy verified in [facility] Patient has been identified by name and [...] Not applicable Please advise. Carlo Miranda LPN [facility]04-19-2024 Miscellaneous Notes* Telephone Encounter - Bijan Elmore MD - 06/06/2023 5:02 PM EDT The following approved medication requests have been transmitted electronically. Requested Prescriptions Signed Prescriptions Disp Refills lidocaine (LIDODERM) 5 % 30 Patch 2 Sig: Apply 1 Patch as directed every 24 hours. Remove old patch after 12 hours Location: [facility] Bijan Elmore MD * Telephone Encounter - Matthew Duarte MA - 06/06/2023 9:21 AM EDT Please review and advise documented in this encounterHolzer Medical Center [facility] [place]04-16-2024 Miscellaneous Notes* Telephone Encounter - Carlo Miranda LPN - 06/03/2023 12:53 PM EDT Received incontinence supply order form from [employer]. Placed in provider's inbox for review. Route to ID fax documented in this encounterHolzer Medical Center [facility] [place]04-03-2024 Miscellaneous Notes* Telephone Encounter - Bijan Elmore [...] 05/21/2023 7:30 AM EDT Pharmacy verified in [facility] Patient has been identified by name and [...] advise. Pamela Yadav MA documented in this encounterHolzer Medical Center [facility] [place]04-03-2024 Miscellaneous Notes* Telephone Encounter - Bijan Elmore [...] 05/21/2023 7:28 AM EDT Pharmacy verified in [facility] Patient has been identified by name and [...] advise. Pamela Yadav MA documented in this encounterHolzer Medical Center [facility] [place]04-03-2024 Miscellaneous Notes* Telephone Encounter - Bijan Elmore [...] 05/21/2023 7:27 AM EDT Pharmacy verified in [facility] Patient has been identified by name and [...] advise. Pamela Yadav MA documented in this encounterHolzer Medical Center – [place]03-19-2024 Miscellaneous Notes* Telephone Encounter - Carlo Miranda LPN - 05/06/2023 4:06 PM EDT Pt states she would like referrals faxed to [facility] in [place] and . Referrals faxed. * Telephone Encounter - Cheryl Miller APRN.CNP - 05/06/2023 3:40 PM EDT Check with patient and let her know where we faxed the referrals and see if they need sent anywhereelse. Cherly Angela, HUMAN SERVICES PROFESSIONAL.FOOD SERVICE WORKER * Telephone Encounter - Carlo Miranda LPN - 05/06/2023 2:37 PM EDT Since initial message sent 05/03, pt has since requested referrals be sent to [facility] in [place] and . Referrals faxed to these locations on 05/04. Would pcp still have referral faxed to [place] location? Please advise. * Telephone Encounter - Bijan Elmore MD - 05/06/2023 10:27 AM EDT Please send referral to [facility] in [place]. With prog note Bijan Elmore MD documented in this encounterHolzer Medical Center [facility] [place]03-13-2024 Miscellaneous Notes* Telephone Encounter - Bijan Elmore MD - 04/30/2023 10:15 AM EDT Can we fax over referral to [facility]. Bijan Elmore MD documented in this encounterHolzer Medical Center – [place]03-07-2024 Miscellaneous Notes* Telephone Encounter - Bijan Elmore MD - 04/24/2023 1:52 PM EST The Rx was denied by insurance. Bijan Elmore MD * Telephone Encounter - Costa Johnson LPN - 04/24/2023 9:13 AM EST Prior authorization denial received. Prior authorization #[id number] * Telephone Encounter - Zandra Nelson MA - 04/23/2023 7:47 PM EST Last appointment: 04/11/23 Next appointment: n/a Pharmacy verified in [facility]. Refill(s) requested: Requested Prescriptions Pending Prescriptions Disp Refills white petrolatum (AQUAPHOR) 41 % topical ointment 396 g 1 Sig: Apply to affected area as needed. Order(s) pended. Please advise. Zandra Nelson MA, IT SECURITY CONSULTING DIRECTOR documented in this encounterHolzer Medical Center – [place]02-28-2024 Miscellaneous Notes* Telephone Encounter - Bijan Elmore [...] 04/15/2023 10:33 AM EST Pharmacy verified in [facility] Patient has been identified by name and [...] advise. Carlo Miranda LPN documented in this encounterHolzer Medical Center – [place]02-07-2024 Miscellaneous Notes* Telephone Encounter - Cheryl Miller APRN.CNP - 03/26/2023 3:55 PM EST Please remind patient to get her labs done soon. Cheryl Miller APRN.MALI * Telephone Encounter - Carlo Miranda LPN - 03/26/2023 11:22 AM EST Pharmacy verified in [facility] Patient has been identified by name and [...] advise. Carlo Miranda LPN documented in this encounterHolzer Medical Center – [place]02-07-2024 Miscellaneous Notes* Telephone Encounter - Bijan Elmore [...] 03/26/2023 8:23 AM EST Pharmacy verified in [facility] Patient has been identified by name and [...] advise. Costa Johnson LPN documented in this encounterHolzer Medical Center – [place]02-07-2024 Miscellaneous Notes* Telephone Encounter - Bijan Elmore [...] advise. Eli Black MA documented in this encounterHolzer Medical Center – [place]12-08-2023 Miscellaneous Notes* Telephone Encounter - Bijan Elmore [...] AM EST Aquaphor pended. documented in this encounterHolzer Medical Center – [place]12-08-2023 Miscellaneous Notes* Telephone Encounter - Bijan Elmore [...] 12/26/22 Next appointment: 03/28/23 Pharmacy verified in [facility]. Refill(s) requested: Requested Prescriptions Pending Prescriptions Disp Refills clonazePAM (KLONOPIN) 0.5 mg tablet 90 tablet 0 Sig: Take 1 tablet by mouth three times a day for 30 days. Order(s) pended. Please advise. Cass Ellison CMA documented in this [facility]11-14-2023 Miscellaneous Notes* Telephone Encounter - Costa Johnson LPN - 12/31/2022 1:02 PM EST Fax sent to office confirmation receipt received. Received return fax stating that patient was discharged from practice. Letter was dated 12/25/2022. documented in this encounterHolzer Medical Center – [place]11-07-2023 Miscellaneous Notes* Telephone Encounter - Costa Johnson LPN - 12/24/2022 3:49 PM EST Pharmacy verified in [facility] Patient has been identified by name and [...] advise. Costa Johnson LPN documented in this encounterHolzer Medical Center – [place]11-07-2023 Miscellaneous Notes* Telephone Encounter - Costa Johnson [...] to fax and scan. documented in this encounterHolzer Medical Center – [place]10-18-2023 Miscellaneous Notes* Telephone Encounter - Bijan Elmore [...] 12/04/2022 10:38 AM EDT Pharmacy verified in [facility] Patient has been identified by name and [...] advise. Costa Johnson LPN documented in this encounterHolzer Medical Center – [place]10-16-2023 Miscellaneous Notes* Telephone Encounter - Carlo Miranda - 12/02/2022 6:00 PM EDT Received wound culture results from [facility]. Placed in provider's inbox for review. Route to MA scanning. documented in this encounterHolzer Medical Center – [place]10-13-2023 History and physical note Author Yulia Munoz [facility] November 29, 2022 4:08pm Note Date/Time November 29, 2022 3 :30pm [facility] [address] [place] [address] H&P Exam - Wound Care 11/29/22 1327 MR#: [id number] Acct: [id number] Name: DEIDRA DE LA CRUZ Rep #:[id number] : 1970 52 From: Yulia HAMMER PCP: [...] initial trauma and orthopedic care was at [facility], but she reports she has not been [...] is currently on methadone through pain management. [facility] Home Medications gabapentin 600 mg tablet [...] Recorded Date Recorded By Document 11/28/22 13:13 [facility] Desktop 11/28/22 13:40 [facility] 11/28/22 13:13 - Today's Visit Information Type [...] & Hygeine No Communication Assessment Preferred language [place] [employer] Operator Required No Able to Read Yes Able [...] Date Recorded By Document 11/28/22 17:25 PL [id number] 11/28/22 17:28 PL 11/28/22 17:25 Wound Center [...] Charges/Coding Visit Charges Office Visits / Consults: 09859 OV L3 New Procedures Integumentary 111xxx-113xx: 22669 Madai subq tissue 20 sq cm/< Assessment/Plan [...] return to her previous orthopedic surgeon at [facility] for evaluation pending imaging results. For now, [...] 1 week or sooner as needed. 11/29/22 1602 <Electronically signed by Yulia HAMMER> Cosigner Signature (if applicable): CC: ~ Signed [facility] Work Phone: [phone] 760-150310-11-2023 Miscellaneous Notes* Telephone Encounter - Bijan Elmore [...] appt Bijan Elmore MD documented in this encounterHolzer Medical Center – [place]10-11-2023 Miscellaneous Notes* Telephone Encounter - Costa Johnson [...] PM EDT Please fax lab orders to [facility], patient will complete there on the . Cheryl Miller APRN.MALI * Telephone Encounter - Matthew Duarte Ma - 11/26/2022 4:04 PM EDT Please review and advise documented in this encounterHolzer Medical Center – [place]09-14-2023 Miscellaneous Notes* Telephone Encounter - Carlo Miranda - 10/31/2022 5:40 PM EDT Received MR left hip and CT left hip w/o contrast from [facility] imaging services. Placed in provider's inbox for review. Route to MA scanning. documented in this encounterHolzer Medical Center – [place]09-14-2023 Miscellaneous Notes* Telephone Encounter - Carlo Miranda - 10/31/2022 5:38 PM EDT Received detailed written order form for incontinence supplies from [employer]. Placed in provider's inbox for review. Route to MA scanning. documented in this encounterHolzer Medical Center – [place]09-13-2023 Miscellaneous Notes* Telephone Encounter - Carlo Miranda - 10/30/2022 8:11 AM EDT Order, TONY note, demographics, insurance cards faxed to [facility]. Pt notified via [employer]. * Telephone Encounter - [place] Annie Pryor - 10/29/2022 4:28 PM EDT Deidra De La Cruz is calling Bijan Elmore MD today to request the home care nursing orders are faxed to: [facility]: [facility] Office [address] [place] [address] Please notify the patient once completed. Patient has been identified by name and birthdate. Duration of symptoms: N/A Person calling: self Call patient at: on cell [phone] (home) [phone] (cell) Was an appointment scheduled: No Closing statement: Results or non-symptom based questions: Thank you for calling [facility], your call will be returned within the next business day. Annie Pryor documented in this encounterHolzer Medical Center – [place]09-07-2023 Miscellaneous Notes* Telephone Encounter - Costa Johnson LPN - 10/24/2022 10:37 AM EDT Received 10/24/2022 from [employer]. Placed in provider's inbox for review. Route to ID for faxing. documented in this encounterHolzer Medical Center – [place]09-05-2023 Miscellaneous Notes* Telephone Encounter - Carlo Miranda - 10/22/2022 2:52 PM EDT Called pt, she would like orders sent to [facility]. Order faxed. * Telephone Encounter - Cheryl Miller APRN.FOOD SERVICE WORKER - 10/17/2022 11:47 AM EDT Let patient know that I placed an order for non-[facility] home care to help assist her with wound care/bathing. She should check with her insurance on agencies within her network, then we can fax orders if needed. Cheryl Miller APRN.CNP documented in this encounterHolzer Medical Center – [place]09-05-2023 Miscellaneous Notes* Telephone Encounter - Costa Johnson LPN - 10/22/2022 8:18 AM EDT Pharmacy verified in [facility] Patient has been identified by name and [...] advise. Costa Johnson LPN documented in this encounterHolzer Medical Center – [place]08-31-2023 History of Present illness Narrative* Alicia Josue LSW - 10/17/2022 10:00 AM EDT Primary Care Social Work Provider Action / FYI Pt would like SN to assist with wound care and bathing. Please consider placing a non [facility] homecare order to begin the process of obtaining services in the home. Thank you PCP Action Date of Service: 10/17/2022 Patient identified by name and date of : Yes- via [employer] Referral Source: Referral Patient Outreach: Follow Up Mode of Outreach: eCircle Response Time: Contact made Patient Identified Needs: [...] PCSW received a follow up message via [employer] indicating that she needed assistance MORTGAGE COORDINATOR.Per pt, she would like to have a nurse come to her home every other week to help with wound care and bathing. SW explained that a MORTGAGE COORDINATOR order will have to be completed and she will need to contact her insurance to review what agencies are available to complete services. SW will send a message to her provider and will continue to follow up as needed. Interventions: Advocacy Assessment Care transition Education Empowering/Coaching Goal Setting Referral to community resource TARIK Casper October 17, 2022 10:40 AM documented in this encounterHolzer Medical Center [facility] [place]08-11-2023 History of Present illness Narrative* Alciia Josue LSW - 09/27/2022 2:35 PM EDT Primary Care Social Work Provider Action / FYI PCP Action Date of Service: 09/27/2022 Patient identified by name and date of : No Referral Source: Referral Patient Outreach: Initial Mode of Outreach: Phone Call Response Time: Unable to reach (1st Attempt) Left message by: [employer]Circle Message and SW attempted to leave a message, voicemail full. TARIK Casper September 27, 2022 2:46PM documented in this encounterHolzer Medical Center [facility] [place]08-10-2023 History of Present illness Narrative* Bijan Elmore [...] reconstruction surgery, working with Dr Quan [facility]. - Has been going to physical [...] 27, 2022 9:12 AM documented in this encounterHolzer Medical Center – [place]08-02-2023 Miscellaneous Notes* Telephone Encounter - Olga Cummings [...] 09/18/2022 11:53 AM EDT Pharmacy verified in [facility] Patient has been identified by name and [...] () Not applicable Please advise. Dinah Babb [facility] documented in this encounterHolzer Medical Center – [place]06-08-2023 Miscellaneous Notes* Telephone Encounter - Bijan Elmore [...] 07/25/2022 10:23 AM EDT Pharmacy verified in [facility] Patient has been identified by name and [...] advise. Rhiannon Salas Ma documented in this encounterHolzer Medical Center – [place]05-19-2023 Miscellaneous Notes* Telephone Encounter - Annie Cao [...] patient. Annie Cao Pss documented in this encounterHolzer Medical Center – [place]05-11-2023 Miscellaneous Notes* Telephone Encounter - Carlo Miranda - 06/27/2022 10:57 AM EDT Orders faxed. * Telephone Encounter - Cheryl Miller APRN.CNP - 06/26/2022 3:30 PM EDT Orders placed, please fax to [employer]. Cheryl Miller APRN.CNP * Telephone Encounter - Costa Johnson LPN - 06/26/2022 11:44 AM EDT Both phones voice mails are full. * Telephone Encounter - Elsa Pryor - 06/26/2022 11:42 AM EDT Chavo, with [employer], stated patient contacted them about getting [...] Please advise if this was received at [phone]. documented in this encounterHolzer Medical Center [facility] [place]04-26-2023 Miscellaneous Notes* Telephone Encounter - Cheryl Mcbride [...] soon. Cheryl Miller APRN.CNP documented in this encounterHolzer Medical Center – [place]04-06-2023 Telephone encounter Note * Telephone Encounter - Hortencia Iverson - 05/23/2022 3:18 PM EDT Name of caller: Deidra De La Cruz Relation to patient: patient Contact phone number: [phone] Appointment scheduled with: Avelina Tello Appointment date & time: 06/18 at 9am Reason for visit (are you having any symptoms) : Left knee hip replacement Transportation issues/ concerns: no Special accommodations? ( wheel chair, etc) : no Current medications: no Any refills need: no Any chronic conditions the provider should be aware of: knee replacement [id number] Miscellaneous Notes* Telephone Encounter - Hortencia Ray - 05/23/2022 3:18 PM EDT Name of caller: Deidra Jono Relation to patient: patient Contact phone number: [phone] Appointment scheduled with: Avelina Tello Appointment date & time: 06/18 at 9am Reason for visit (are you having any symptoms) : Left knee hip replacement Transportation issues/ concerns: no Special accommodations? ( wheel chair, etc) : no Current medications: no Any refills need: no Any chronic conditions the provider should be aware of: knee replacement documented in this encounterSProtestant Deaconess [id number] Miscellaneous Notes* Telephone Encounter - Bijan Elmore [...] 04/29/2022 9:20 AM EDT Pharmacy verified in [facility]. Patient has been identified by name and [...] advise. Sandi Blanco MA documented in this encounterHolzer Medical Center [facility] [place]03-07-2023 NoteTalked on phone, she will think about seeing Dr. Ware regarding amputation. But I told her no hip procedure until this right sided infection is taken care of. She will call to discuss seeing Dr. Ware going forward. Nothing for you to do at this point.[facility]03-01-2023 Telephone encounter Note* Telephone Encounter - Carlos Sapp - 04/17/2022 6:50 PM EST Name of caller requesting page:[facility] Phone Number of caller: [phone] Facility requesting page: Microbiology Reason for Page: Knee fluid Provider paged: Practice Name of paged provider: Orthopedics Page Placed to #: N/A Time Page was sent or provider contacted: 6:49 Pm Page Content: [facility] is requesting a call back [phone] in regards to knee fluid that she received that was collected wrong. please advise [facility] [id number] Miscellaneous Notes* Telephone Encounter - Carlos Sapp - 04/17/2022 6:50 PM EST Name of caller requesting page:[facility] Phone Number of caller: [phone] Facility requesting page: Microbiology Reason for Page: Knee fluid Provider paged: Dr.Rabe Quintanilla Name of paged provider: Orthopedics Page Placed to #: N/A Time Page was sent or provider contacted: 6:49 Pm Page Content: [facility] is requesting a call back [phone] in regards to knee fluid that she received that was collected wrong. please advise documented in this [facility]03-01-2023 History of Present illness Narrative* Cass Guzman MD - 04/17/2022 2:15 PM EST Images from the original note were not included. [facility] [place] [address] [place] [address] Dept: [phone] Dept 04/17/2022 Chief Complaint Patient presents with [...] 6 hours to 24 hours, initial encounter ([facility]) 12/19/2020 Past Surgical History: Procedure Laterality Date [...] 04/17/2022 at 3:38 PM. documented in this [facility]03-01-2023 History of Present illness Narrative* Cass Guzman MD - 04/17/2022 2:15 PM EST Images from the original note were not included. [facility] [address] [place] [address] Dept: [phone] Dept 04/17/2022 Chief Complaint Patient presents with [...] 6 hours to 24 hours, initial encounter ([facility]) 12/19/2020 Past Surgical History: Procedure Laterality Date [...] 04/17/2022 at 3:38 PM. documented in this [facility]03-01-2023 Miscellaneous Notes* Addendum Note - Cass Guzman MD - 04/17/2022 2:15 PM ESTAddended by: CASS GUZMAN on: 04/19/2022 03:28 PM Modules accepted: Level of Service documented in this [facility]03-01-2023 Note* Addendum Note - Cass Guzman MD - 04/17/2022 2:15 PM ESTAddended by: CASS GUZMAN on: 04/19/2022 03:28 PM Modules accepted: Level of Service [facility] [id number] [facility] Infectious Diseases Attending Outpatient Progress Note [...] completed a course of IV antibiotics at [facility] followed by a tail of oral cefdinir [...] 12/24/2021 Few Providencia rettgeri (more content not included)...[facility]02-15-2023 Miscellaneous Notes* Telephone Encounter - Bijan Elmore MD - 04/03/2022 11:04 AM EST The following approved medication requests have been transmitted electronically. Requested Prescriptions Signed Prescriptions Disp Refills gabapentin (NEURONTIN) 600 mg tablet 90 tablet 0 Sig: take 1 tablet by mouth three times a day Authorizing Provider: BIJAN ELMORE MD * Telephone Encounter - Cosat Johnson LPN - 04/03/2022 10:20 AM EST Pharmacy verified in [facility] Patient has been identified by name and [...] advise. Costa Johnson LPN documented in this encounterHolzer Medical Center [facility] [place]02-15-2023 History of Present illness Narrative* Jarvis Almonte MD - 04/03/2022 10:00 AM EST [facility] Infectious Diseases Attending Outpatient Progress Note [...] completed a course of IV antibiotics at [facility] followed by a tail o f oral [...] exposed bone - s/p debridement, gastroc flap/ [place] flap/ [facility] (01/29) Repeat debridement 02-13 -received [...] regarding plan of care. documented in this [facility]02-10-2023 Miscellaneous Notes* Telephone Encounter - Luiza Floyd - 03/29/2022 10:45 AM EST 3rd attempt to contact patient. Voicemail full, no message left. Letter mailed. * Telephone Encounter - [facility] - 03/19/2022 1:31 PM EST 2nd attempt to contact patient. Voicemail full, no message left. * Telephone Encounter - [facility] - 03/15/2022 3:07 PM EST 1st attempt to contact patient. Voicemail full, no message left. * Telephone Encounter - Cheryl Miller APRN.CNP - 03/14/2022 9:21 AM EST Patient will be due for a 6 month follow-up in the next month with Dr. Elmore, please schedule. Cheryl Miller APRN.CNP * Telephone Encounter - Dinah Pryor - 03/13/2022 4:03 PM EST Pharmacy verified in [facility] Patient has been identified by name and [...] advise. Dinah Babb Pss documented in this encounterHolzer Medical Center – [facility]01-30-2023 Miscellaneous Notes* Telephone Encounter - Costa Johnson LPN - 03/18/2022 10:22 AM EST Received 03/15/2022 from [employer]. Placed in provider's inbox for review. Route to ID for scanning documented in this encounterHolzer Medical Center – [place]01-27-2023 History of Present illness Narrative* Pacheco Boothe, [...] classified (Active) Wound Image 03/15/22928 Site Assessment Sloughing;[place] 03/15/22928 Kelly-Wound Assessment Dry 03/15/22928 Wound Length [...] Pt agrees with plan. documented in this [facility]01-27-2023 Hospital Discharge instructions* Patient Instructions* [...] Kerlix and tape Use Single layer Tubi Journeyman Electrician Pv Installer on both legs at all times unless showering or lying down documented in this [facility]01-17-2023 Miscellaneous Notes* Telephone Encounter - Char Mccloud - 03/05/2022 9:46 AM EST 1st attempt. Sent [employer] message * Telephone Encounter - Cheryl Miller [...] patient. Amie Blanca Pss documented in this encounterHolzer [facility]01-13-2023 Telephone encounter Note * Telephone Encounter - Gabriela Ann MA - 03/01/2022 11:53 AM EST She is scheduled to see you on 03/05 @ 12:30pm. [id number] Miscellaneous Notes* Telephone Encounter - Gabriela Ann [...] when to reschedule appointment documented in this [facility]01-12-2023 Telephone encounter Note* Telephone Encounter - Jarvis Almonte MD - 02/28/2022 9:42 PM EST Can she see me Sunday 03/05 at 12:30 pm? [facility] [id number] Miscellaneous Notes* Telephone Encounter - Jarvis Almonte [...] when to reschedule appointment documented in this encounterSProtestant Deaconess HospitalSyfpcg81-19-2719 Telephone encounter Note* Telephone Encounter - Gabriela [...] person or virtually to speak with you? [facility] [id number] Miscellaneous Notes* Telephone Encounter - Gabriela Ann [...] when to reschedule appointment documented in this [facility]01-09-2023 Telephone encounter Note* Telephone Encounter - Jessica Faulkner LPN - 02/25/2022 1:47 PM EST I left a generic message on patients voicemail to call the office. [facility] [id number] Miscellaneous Notes* Telephone Encounter - Jessica Faulkner [...] when to reschedule appointment documented in this encounterSProtestant Deaconess HospitalUdkpwb27-14-2385 Telephone encounter Note* Telephone Encounter - Jarvis Almonte MD - 02/25/2022 11:51 AM EST I have not received any request to clear her. Lets have her see her hip doctor and based on their recommendations I can make further recommendations. Has she seen wound care yet? [facility] [id number] Telephone encounter Note* Telephone Encounter - Shahriar [...] already? Scheduled pt 03/14/2022 @ 11 am. [facility] [id number] Telephone encounter Note* Telephone Encounter - Amelia [...] please advise on when to reschedule appointment [facility] [id number] NoteMedical clearance we sent to infectious disease and apt was schedule to further discuss [facility]Tr[facility]12-19-2022 Miscellaneous Notes* Telephone Encounter - Bijan Elmore MD - 02/04/2022 4:27 PM EST The following approved medication requests have been transmitted electronically. Requested Prescriptions Signed Prescriptions Disp Refills sertraline (ZOLOFT) 100 mg tablet 90 tablet 0 Sig: take 1 tablet by mouth once daily Authorizing Provider: BIJAN ELMORE MD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 Practice 06/05/15 Application Designer Relationship Specialty Start Date End Date Bijan Elmore MD [address] [place] [address], [place] [address] PCP - General Family Practice 06/05/15 Application Designer Relationship Specialty Start Date End Date Bijan Elmore MD [address] [place] [address], [place] [address] PCP - General Family Practice 06/05/15 Application Designer Relationship Specialty Start Date End Date Bijan Elmore MD [address] [place] [address] [place] [address] PCP - General Family Practice 06/05/15 Application Designer Relationship Specialty Start Date End Date Bijan Elmore MD [address] [place] [address], [place] [address] PCP - General Family Practice 06/05/15 Application Designer Relationship Specialty Start Date End Date Bijan Elmore MD [address] [place] [address], [place] [address] PCP - General Family Practice 06/05/15 Application Designer Relationship Specialty Start Date End Date Bijan Elmore MD [address] [place] [address], [place] [address] PCP - General Family Practice 06/05/15 Application Designer Relationship Specialty Start Date End Date Bijan Elmore MD [address] [place] [address], [place] [address] PCP - General Family Practice 06/05/15 Application Designer Relationship Specialty Start Date End Date Bijan Elmore MD [address] [place] [address], [place] [address] PCP - General Family Practice 06/05/15 Application Designer Relationship Specialty Start Date End Date Bijan Elmore MD [address] [place] [address], [place] [address] PCP - General Family Practice 06/05/15 Application Designer Relationship Specialty Start Date End Date Bijan Elmore MD [address] [place] [address], [place] [address] PCP - General Family Practice 06/05/15 Application Designer Relationship Specialty Start Date End Date Bijan Elmore MD [address] [place] [address], [place] [address] PCP - General Family Practice 06/05/15 Application Designer Relationship Specialty Start Date End Date Bijan Elmore MD [address] [place] [address], [place] [address] PCP - General Family Practice 06/05/15 Application Designer Relationship Specialty Start Date End Date Bijan Elmore MD [address] [place] [address], [place] [address] PCP - General Family Practice 06/05/15 Application Designer Relationship Specialty Start Date End Date Bijan Elmore MD [address] [place] [address], [place] [address] PCP - General Family Practice 06/05/15 Application Designer Relationship Specialty Start Date End Date Bijan Elmore MD [address] [place] [address], [place] [address] PCP - General Family Practice 06/05/15 Application Designer Relationship Specialty Start Date End Date Bijan Elmore MD [address] [place] [address], [place] [address] PCP - General Family Practice 06/05/15 Application Designer Relationship Specialty Start Date End Date Bijan Elmore MD [address] [place] [address] PCP - General Family Practice 06/05/15 Application Designer Relationship Specialty Start Date End Date Bijan Elmore MD [facility] [place] [address] PCP - General Family Practice 06/05/15 Application Designer Relationship Specialty Start Date End Date Bijan Elmore MD [address] [place] [address], [place] [address] PCP - General Family Practice 06/05/15 Application Designer Relationship Specialty Start Date End Date Bijan Elmore MD [address] [place] [address], [place] [address] PCP - General Family Practice 06/05/15 Application Designer Relationship Specialty Start Date End Date Bijan Elmore MD [address] [place] [address], [place] [address] PCP - General Family Practice 06/05/15 Application Designer Relationship Specialty Start Date End Date Bijan Elmore MD [address] [place] [address], [place] [address] PCP - General Family Practice 06/05/15 Application Designer Relationship Specialty Start Date End Date Bijan Elmore MD [address] [place] [address], [place] [address] PCP - General Family Practice 06/05/15 Application Designer Relationship Specialty Start Date End Date Bijan Elmore MD [address] [place] [address], [place] [address] PCP - General Family Practice 06/05/15 Application Designer Relationship Specialty Start Date End Date Bijan Elmore MD [address] [place] [address], [place] [address] PCP - General Family Practice 06/05/15 Application Designer Relationship Specialty Start Date End Date Bijan Elmore MD [address] [place] [address] PCP - General Family Practice 06/05/15 Application Designer Relationship Specialty Start Date End Date Bijan Elmore [address] [place] [address] PCP - General Family Medicine 02/18/20 Application Designer Relationship Specialty Start Date End Date Bijan Elmore MD [address] [place] [address] PCP - General Family Practice 06/05/15 Application Designer Relationship Specialty Start Date End Date Bijan Elmore MD [address] [place] [address] PCP - General Family Practice 06/05/15 Application Designer Relationship Specialty Start Date End Date Bijan Elmore MD [address] [place] [address] PCP - General Family Medicine 06/05/15 Application Designer Relationship Specialty Start Date End Date Bijan Elmore MD [address] [place] [address] PCP - General Family Medicine 06/05/15 Application Designer Relationship Specialty Start Date End Date Bijan Elmore MD [address] [place] [address] PCP - General Family Medicine 06/05/15 Application Designer Relationship Specialty Start Date End Date Bijan Elmore MD [address] [place] [address] PCP - General Family Medicine 06/05/15 Application Designer Relationship Specialty Start Date End Date Bijan Elmore MD [address] [facility] [place] [address] PCP - General Family Medicine 06/05/15 Application Designer Relationship Specialty Start Date End Date Bijan Elmore MD [address] [place] [address] PCP - General Family Medicine 06/05/15 Application Designer Relationship Specialty Start Date End Date Bijan Elmore MD [address] [place] [address] PCP - General Family Medicine 06/05/15 Application Designer Relationship Specialty Start Date End Date Bijan Elmore [address] [place] [id number] PCP - General 02/18/20 Application Designer Relationship Specialty Start Date End Date Bijan Elmore MD [address] [place] [address] PCP - General Family Medicine 06/05/15 Application Designer Relationship Specialty Start Date End Date Bijan Elmore MD [address] [place] [address] PCP - General Family Medicine 06/05/15 Application Designer Relationship Specialty Start Date End Date Bijan Elmore MD [address] [place] [address] PCP - General Family Medicine 06/05/15 Application Designer Relationship Specialty Start Date End Date Bijan Elmore MD [address] [place] [address] PCP - General Family Medicine 06/05/15 Application Designer Relationship Specialty Start Date End Date Bijan Elmore MD [address] [place] [address] PCP - General Family Medicine 06/05/15 Application Designer Relationship Specialty Start Date End Date Bijan Elmore MD [address] [facility], [place] [id number] PCP - General Family Medicine 06/05/15 Application Designer Relationship Specialty Start Date End Date Bijan Elmore MD [address] [place] [address] PCP - General Family Medicine 06/05/15 Yactayo, Alicia, PHARMACY LABORATORY TECHNICIAN [employer] 10/17/22 Application Designer Relationship Specialty Start Date End Date Bijan Elmore MD [address] [place] [address] PCP - General Family Medicine 06/05/15 Yactayo, Alicia, PHARMACY LABORATORY TECHNICIAN [employer] 10/17/22 Application Designer Relationship Specialty Start Date End Date Bijan Elmore MD [address] [place] [address] PCP - General Family Medicine 06/05/15 Yactayo, Alicia, PHARMACY LABORATORY TECHNICIAN [employer] 10/17/22 Application Designer Relationship Specialty Start Date End Date Bijan Elmore MD [address] [place] [address] PCP - General Family Medicine 06/05/15 Yactayo, Alicia, PHARMACY LABORATORY TECHNICIAN [employer] 10/17/22 Application Designer Relationship Specialty Start Date End Date Bijan Elmore MD [address] [place] [address] PCP - General Family Medicine 06/05/15 Yactayo, Alicia, PHARMACY LABORATORY TECHNICIAN [employer] 10/17/22 Team Status: Active Member Role Status Dates Dr. Francisco Elmore MD Family Provider Active Dr. Francisco Elmore MD Primary Care Provider Active Team Status: Inactive Member Role Status Dates Dr. Francisco Elmore MD Primary Care Provider Active Dr. Abhi Quan MD Attending Provider, Referring P [email or web address] Active Application Designer Relationship Specialty Start Date End Date iBjan Elmore MD [address] [place] [address] PCP - General Family Medicine 06/05/15 Yactayo, Alicia, PHARMACY LABORATORY TECHNICIAN [employer] 10/17/22 Application Designer Relationship Specialty Start Date End Date Bijan Elmore MD [address] [place] [address] PCP - General Family Medicine 06/05/15 Yactayo, Alicia, PHARMACY LABORATORY TECHNICIAN [employer] 10/17/22 Application Designer Relationship Specialty Start Date End Date Bijan Elmore MD [address] [place] [address] PCP - General Family Medicine 06/05/15 Yactayo, Alicia, PHARMACY LABORATORY TECHNICIAN [employer] 10/17/22 Team Status: Active Member Role Status Dates Dr. Francisco Elmore MD Primary Care Provider Active HARMAN Mills Attending Provider, Other Provider A ctive Dr. Abhi Quan MD Referring Provider Active Team Status: Inactive Member Role Status Dates Dr. Francisco Elmore MD Primary Care Provider Active HARMAN Mills Attending Provider Active Dr. Abhi Quan MD Referring Provider Active Application Designer Relationship Specialty Start Date End Date Bijan Elmore MD [address] [place] [address] PCP - General Family Medicine 06/05/15 Yactayo, Alicia, PHARMACY LABORATORY TECHNICIAN [employer] 10/17/22 Application Designer Relationship Specialty Start Date End Date Bijan Elmore MD [address] [place] [address] PCP - General Family Medicine 06/05/15 Application Designer Relationship Specialty Start Date End Date Bijan Elmore MD [address] [place] [address] PCP - General Family Medicine 06/05/15 Application Designer Relationship Specialty Start Date End Date Bijan Elmore MD [address] [place] [address] PCP - General Family Medicine 06/05/15 Application Designer Relationship Specialty Start Date End Date Bijan Elmore MD [address] [place] [address] PCP - General Family Medicine 06/05/15 Application Designer Relationship Specialty Start Date End Date Bijan Elmore MD [address] [place] [address] PCP - General Family Medicine 06/05/15 Application Designer Relationship Specialty Start Date End Date Bijan Elmore MD [address] [place] [address] PCP - General Family Medicine 06/05/15 Application Designer Relationship Specialty Start Date End Date Bijan Elmore MD [address] [place] [address] PCP - General Family Medicine 06/05/15 Application Designer Relationship Specialty Start Date End Date Bijan Elmore MD [address] [place] [address] PCP - General Family Medicine 06/05/15 Application Designer Relationship Specialty Start Date End Date Bijan Elmore MD [address] [place] [address] PCP - General Family Medicine 06/05/15 Application Designer Relationship Specialty Start Date End Date Bijan Elmore MD [address] [facility], [place] [address] PCP - General Family Medicine 06/05/15 Application Designer Relationship Specialty Start Date End Date Bijan Elmore MD [address] [facility], [place] [address] PCP - General Family Medicine 06/05/15 Application Designer Relationship Specialty Start Date End Date Bijan Elmore MD [address] [place] [address] PCP - General Family Medicine 06/05/15 Application Designer Relationship Specialty Start Date End Date Generic Provider, [place] [address] PCP - General Vocational Rehabilitation Technician 08/22/23 Application Designer Relationship Specialty Start Date End Date Bijan Elmore MD [address] [place] [address] PCP - General Family Medicine 06/05/15 Application Designer Relationship Specialty Start Date End Date Biajn Elmore MD [address] [place] [address] PCP - General Family Medicine 06/05/15 Application Designer Relationship Specialty Start Date End Date Generic Provider, [place] [address] PCP - General Vocational Rehabilitation Technician 08/22/23 Application Designer Relationship Specialty Start Date End Date Bijan Elmore MD [address] [place] [address] PCP - General Family Medicine 06/05/15 Application Designer Relationship Specialty Start Date End Date Bijan Elmore MD [address] [place] [address] PCP - General Family Medicine 06/05/15 Application Designer Relationship Specialty Start Date End Date Bijan Elmore MD [address] [place] [address] PCP - General Family Medicine 12/30/23 Application Designer Relationship Specialty Start Date End Date Bijan Elmore MD [address] [place] [address] PCP - General Family Medicine 06/05/15 Cheryl Araujo, HUMAN SERVICES PROFESSIONAL.FOOD SERVICE WORKER [address] [facility] [place] [address] Ground Water Technician Internal Medicine 01/25/24 Application Designer Relationship Specialty Start Date End Date Bijan Elmore MD [address] [place] [address] PCP - General Family Medicine 06/05/15 Cheryl Araujo, HUMAN SERVICES PROFESSIONAL.FOOD SERVICE WORKER [address] [facility] [place] [address] Ground Water Technician Internal Medicine 01/25/24 Application Designer Relationship Specialty Start Date End Date Bijan Elmore MD [address] [place] [address] PCP - General Family Medicine 06/05/15 Cheryl Araujo HUMAN SERVICES PROFESSIONAL.FOOD SERVICE WORKER [address] [place] [address] [address] [place], [place] [address] Ground Water Technician Internal Medicine 01/25/24 Application Designer Relationship Specialty Start Date End Date Generic Provider, No Assigned Pcp, [place] [address] PCP - General Vocational Rehabilitation Technician 08/22/23 Application Designer Relationship Specialty Start Date End Date Bijan Elmore MD [address] [place], [place] [address] PCP - General Family Medicine 06/05/15 Cheryl Araujo APRN.FOOD SERVICE WORKER [address] [place] [address] [address] [place], [place] [address] Ground Water Technician Internal Medicine 01/25/24 Application Designer Relationship Specialty Start Date End Date Bijan Elmore [address] [place] [address] PCP - General 02/18/20 Application Designer Relationship Specialty Start Date End Date Bijan Elmore [address] [place] [address] PCP - General 02/18/20 Application Designer Relationship Specialty Start Date End Date Bijan Elmore [address] [place] [address] PCP - General 02/18/20 Application Designer Relationship Specialty Start Date End Date Bijan Elmore [address] [place] [address] PCP - General 02/18/20 Application Designer Relationship Specialty Start Date End Date Bijan Elmore [address] [place] [address] PCP - General 02/18/20 Application Designer Relationship Specialty Start Date End Date Bijan Elmore [address] [place] [address] PCP - General 02/18/20 Application Designer Relationship Specialty Start Date End Date Bijan Elmore [address] [place] [address] PCP - General 02/18/20 Application Designer Relationship Specialty Start Date End Date Bijan Elmore 1 [place] [address] PCP - General 02/18/20 Application Designer Relationship Specialty Start Date End Date Bijan Elmore [address] [place] [address] PCP - General 02/18/20 Application Designer Relationship Specialty Start Date End Date Bijan Elmore MD [address] [place] [address] PCP - General Family Medicine 12/30/23 Application Designer Relationship Specialty Start Date End Date Bijan Elmore MD [address] [place] [address] PCP - General Family Medicine 06/05/15 Cheryl Araujo APRN.FOOD SERVICE WORKER [address] [facility] [address] [place], [place] [address] Ground Water Technician Internal Medicine 01/25/24 Application Designer Relationship Specialty Start Date End Date Bijan Elmore MD [address] [place], [place] [address] PCP - General Family Medicine 06/05/15 Cheryl Araujo APRN.FOOD SERVICE WORKER [address] [facility] [address] [place] DC [address] Ground Water Technician Internal Medicine 01/25/24 Application Designer Relationship Specialty Start Date End Date Bijan Elmore MD [address] [place], [place] [address] PCP - General Family Medicine 06/05/15 Cheryl Araujo, JADA.FOOD SERVICE WORKER [address] [facility] [address] [place] DC [address] Ground Water Technician Internal Medicine 01/25/24 Application Designer Relationship Specialty Start Date End Date Bijan Elmore MD [address] [place], [place] [address] PCP - General Family Medicine 12/30/23 Application Designer Relationship Specialty Start Date End Date Bijan Elmore MD [address] [place], [place] [address] PCP - General Family Medicine 06/05/15 Cheryl Araujo, HUMAN SERVICES PROFESSIONAL.FOOD SERVICE WORKER [address] [facility] [address] [place] DC [address] Ground Water Technician Internal Medicine 01/25/24 Application Designer Relationship Specialty Start Date End Date Bijan Elmore MD [address] [place], [place] [address] PCP - General Family Medicine 12/30/23 Application Designer Relationship Specialty Start Date End Date Bijan Elmore MD [address] [place], [place] [address] PCP - General Family Medicine 12/30/23 Team Status: Active Member Role Status Dates Dr. Francisco Elmore MD Primary Care Provider Active Team Status: Inactive Member Role Status Dates Dr. Francisco Elmore MD Primary Care Provider Active Start: April 25, 2024 End: April 25, 2024 Dr. Pan Abarca MD Emergency Provider Active Start: April 25, 2024 End: April 25, 2024 Application Designer Relationship Specialty Start Date End Date Bijan Elmore MD [address] [place] [address] PCP - General Family Medicine 06/05/15 Cheryl Araujo APRN.FOOD SERVICE WORKER [address] [facility] [place] [address] Ground Water Technician Internal Medicine 01/25/24 Application Designer Relationship Specialty Start Date End Date Bijan Elmore MD [address] [place] [address] PCP - General Family Medicine 06/05/15 Cheryl Araujo APRN.FOOD SERVICE WORKER [address] [facility] [place] [address] Ground Water Technician Internal Medicine 01/25/24 Source Comments (unrecognize d section and content) In the event this informatio n is protected by the Federal Confidentiality of Alcohol and Drug Abuse Patient Records regulations: The Federal rules restrict any use of the information to criminally investigate or prosecute any alcohol or drug abuse patient.[facility] [place] the event this information is protected by the Federal Confidentiality of Alcohol and Drug Abuse Patient Records regulations: The Federal rules restrict any use of the information to criminally investigate or prosecute any alcohol or drug abuse patient.[facility] [place]In the event this information is protected by the Federal Confidentiality of Alcohol and Drug Abuse Patient Records regulations: The Federal rules restrict any use of the information to criminally investigate or prosecute any alcohol or drug abuse patient.[facility] [place]In the event this information is protected by the Federal Confidentiality of Alcohol and Drug Abuse Patient Records regulations: The Federal rules restrict any use of the information to criminally investigate or prosecute any alcohol or drug abuse patient.[facility] [place]In the event this information is protected by the Federal Confidentiality of Alcohol and Drug Abuse Patient Records regulations: The Federal rules restrict any use of the information to criminally investigate or prosecute any alcohol or drug abuse patient.[facility] [place]In the event this information is protected by the Federal Confidentiality of Alcohol and Drug Abuse Patient Records regulations: The Federal rules restrict any use of the information to criminally investigate or prosecute any alcohol or drug abuse patient.[facility] JacksonIn the event this information is protected by the Federal Confidentiality of Alcohol and Drug Abuse Patient Records regulations: The Federal rules restrict any use of the information to criminally investigate or prosecute any alcohol or drug abuse patient.[facility] JacksonIn the event this information is protected by the Federal Confidentiality of Alcohol and Drug Abuse Patient Records regulations: The Federal rules restrict any use of the information to criminally investigate or prosecute any alcohol or drug abuse patient.[facility] [place]In the event this information is protected by the Federal Confidentiality of Alcohol and Drug Abuse Patient Records regulations: The Federal rules restrict any use of the information to criminally investigate or prosecute any alcohol or drug abuse patient.[facility] [place]In the event this information is protected by the Federal Confidentiality of Alcohol and Drug Abuse Patient Records regulations: The Federal rules restrict any use of the information to criminally investigate or prosecute any alcohol or drug abuse patient.[facility] JacksonIn the event this information is protected by the Federal Confidentiality of Alcohol and Drug Abuse Patient Records regulations: The Federal rules restrict any use of the information to criminally investigate or prosecute any alcohol or drug abuse patient.[facility] [place]In the event this information is protected by the Federal Confidentiality of Alcohol and Drug Abuse Patient Records regulations: The Federal rules restrict any use of the information to criminally investigate or prosecute any alcohol or drug abuse patient.[facility] JacksonIn the event this information is protected by the Federal Confidentiality of Alcohol and Drug Abuse Patient Records regulations: The Federal rules restrict any use of the information to criminally investigate or prosecute any alcohol or drug abuse patient.[facility] JacksonIn the event this information is protected by the Federal Confidentiality of Alcohol and Drug Abuse Patient Records regulations: The Federal rules restrict any use of the information to criminally investigate or prosecute any alcohol or drug abuse patient.[facility] JacksonIn the event this information is protected by the Federal Confidentiality of Alcohol and Drug Abuse Patient Records regulations: The Federal rules restrict any use of the information to criminally investigate or prosecute any alcohol or drug abuse patient.[facility] JacksonIn the event this information is protected by the Federal Confidentiality of Alcohol and Drug Abuse Patient Records regulations: The Federal rules restrict any use of the information to criminally investigate or prosecute any alcohol or drug abuse patient.[facility] JacksonIn the event this information is protected by the Federal Confidentiality of Alcohol and Drug Abuse Patient Records regulations: The Federal rules restrict any use of the information to criminally investigate or prosecute any alcohol or drug abuse patient.[facility] JacksonIn the event this information is protected by the Federal Confidentiality of Alcohol and Drug Abuse Patient Records regulations: The Federal rules restrict any use of the information to criminally investigate or prosecute any alcohol or drug abuse patient.[facility] JacksonIn the event this information is protected by the Federal Confidentiality of Alcohol and Drug Abuse Patient Records regulations: The Federal rules restrict any use of the information to criminally investigate or prosecute any alcohol or drug abuse patient.[facility] JacksonIn the event this information is protected by the Federal Confidentiality of Alcohol and Drug Abuse Patient Records regulations: The Federal rules restrict any use of the information to criminally investigate or prosecute any alcohol or drug abuse patient.[facility] JacksonIn the event this information is protected by the Federal Confidentiality of Alcohol and Drug Abuse Patient Records regulations: The Federal rules restrict any use of the information to criminally investigate or prosecute any alcohol or drug abuse patient.[facility] JacksonIn the event this information is protected by the Federal Confidentiality of Alcohol and Drug Abuse Patient Records regulations: The Federal rules restrict any use of the information to criminally investigate or prosecute any alcohol or drug abuse patient.[facility] JacksonIn the event this information is protected by the Federal Confidentiality of Alcohol and Drug Abuse Patient Records regulations: The Federal rules restrict any use of the information to criminally investigate or prosecute any alcohol or drug abuse patient.[facility] JacksonIn the event this information is protected by the Federal Confidentiality of Alcohol and Drug Abuse Patient Records regulations: The Federal rules restrict any use of the information to criminally investigate or prosecute any alcohol or drug abuse patient.[facility] JacksonIn the event this information is protected by the Federal Confidentiality of Alcohol and Drug Abuse Patient Records regulations: The Federal rules restrict any use of the information to criminally investigate or prosecute any alcohol or drug abuse patient.[facility] JacksonIn the event this information is protected by the Federal Confidentiality of Alcohol and Drug Abuse Patient Records regulations: The Federal rules restrict any use of the information to criminally investigate or prosecute any alcohol or drug abuse patient.[facility] JacksonIn the event this information is protected by the Federal Confidentiality of Alcohol and Drug Abuse Patient Records regulations: The Federal rules restrict any use of the information to criminally investigate or prosecute any alcohol or drug abuse patient.[facility] JacksonIn the event this information is protected by the Federal Confidentiality of Alcohol and Drug Abuse Patient Records regulations: The Federal rules restrict any use of the information to criminally investigate or prosecute any alcohol or drug abuse patient.[facility] JacksonIn the event this information is protected by the Federal Confidentiality of Alcohol and Drug Abuse Patient Records regulations: The Federal rules restrict any use of the information to criminally investigate or prosecute any alcohol or drug abuse patient.[facility] JacksonIn the event this information is protected by the Federal Confidentiality of Alcohol and Drug Abuse Patient Records regulations: The Federal rules restrict any use of the information to criminally investigate or prosecute any alcohol or drug abuse patient.[facility] JacksonIn the event this information is protected by the Federal Confidentiality of Alcohol and Drug Abuse Patient Records regulations: The Federal rules restrict any use of the information to criminally investigate or prosecute any alcohol or drug abuse patient.[facility] JacksonIn the event this information is protected by the Federal Confidentiality of Alcohol and Drug Abuse Patient Records regulations: The Federal rules restrict any use of the information to criminally investigate or prosecute any alcohol or drug abuse patient.[facility] JacksonIn the event this information is protected by the Federal Confidentiality of Alcohol and Drug Abuse Patient Records regulations: The Federal rules restrict any use of the information to criminally investigate or prosecute any alcohol or drug abuse patient.[facility] JacksonIn the event this information is protected by the Federal Confidentiality of Alcohol and Drug Abuse Patient Records regulations: The Federal rules restrict any use of the information to criminally investigate or prosecute any alcohol or drug abuse patient.[facility] JacksonIn the event this information is protected by the Federal Confidentiality of Alcohol and Drug Abuse Patient Records regulations: The Federal rules restrict any use of the information to criminally investigate or prosecute any alcohol or drug abuse patient.[facility] JacksonIn the event this information is protected by the Federal Confidentiality of Alcohol and Drug Abuse Patient Records regulations: The Federal rules restrict any use of the information to criminally investigate or prosecute any alcohol or drug abuse patient.[facility] JacksonIn the event this information is protected by the Federal Confidentiality of Alcohol and Drug Abuse Patient Records regulations: The Federal rules restrict any use of the information to criminally investigate or prosecute any alcohol or drug abuse patient.[facility] JacksonIn the event this information is protected by the Federal Confidentiality of Alcohol and Drug Abuse Patient Records regulations: The Federal rules restrict any use of the information to criminally investigate or prosecute any alcohol or drug abuse patient.[facility] JacksonIn the event this information is protected by the Federal Confidentiality of Alcohol and Drug Abuse Patient Records regulations: The Federal rules restrict any use of the information to criminally investigate or prosecute any alcohol or drug abuse patient.[facility] JacksonIn the event this information is protected by the Federal Confidentiality of Alcohol and Drug Abuse Patient Records regulations: The Federal rules restrict any use of the information to criminally investigate or prosecute any alcohol or drug abuse patient.[facility] [place]In the event this information is protected by the Federal Confidentiality of Alcohol and Drug Abuse Patient Records regulations: The Federal rules restrict any use of the information to criminally investigate or prosecute any alcohol or drug abuse patient.[facility] [place]In the event this information is protected by the Federal Confidentiality of Alcohol and Drug Abuse Patient Records regulations: The Federal rules restrict any use of the information to criminally investigate or prosecute any alcohol or drug abuse patient.[facility] [place]In the event this information is protected by the Federal Confidentiality of Alcohol and Drug Abuse Patient Records regulations: The Federal rules restrict any use of the information to criminally investigate or prosecute any alcohol or drug abuse patient.[facility] [place]In the event this information is protected by the Federal Confidentiality of Alcohol and Drug Abuse Patient Records regulations: The Federal rules restrict any use of the information to criminally investigate or prosecute any alcohol or drug abuse patient.[facility] [place]In the event this information is protected by the Federal Confidentiality of Alcohol and Drug Abuse Patient Records regulations: The Federal rules restrict any use of the information to criminally investigate or prosecute any alcohol or drug abuse patient.[facility] [place]In the event this information is protected by the Federal Confidentiality of Alcohol and Drug Abuse Patient Records regulations: The Federal rules restrict any use of the information to criminally investigate or prosecute any alcohol or drug abuse patient.[facility] [place]In the event this information is protected by the Federal Confidentiality of Alcohol and Drug Abuse Patient Records regulations: The Federal rules restrict any use of the information to criminally investigate or prosecute any alcohol or drug abuse patient.[facility] [place]In the event this information is protected by the Federal Confidentiality of Alcohol and Drug Abuse Patient Records regulations: The Federal rules restrict any use of the information to criminally investigate or prosecute any alcohol or drug abuse patient.[facility] [place]In the event this information is protected by the Federal Confidentiality of Alcohol and Drug Abuse Patient Records regulations: The Federal rules restrict any use of the information to criminally investigate or prosecute any alcohol or drug abuse patient.[facility] [place]In the event this information is protected by the Federal Confidentiality of Alcohol and Drug Abuse Patient Records regulations: The Federal rules restrict any use of the information to criminally investigate or prosecute any alcohol or drug abuse patient.[facility] [place]In the event this information is protected by the Federal Confidentiality of Alcohol and Drug Abuse Patient Records regulations: The Federal rules restrict any use of the information to criminally investigate or prosecute any alcohol or drug abuse patient.[facility] [place]In the event this information is protected by the Federal Confidentiality of Alcohol and Drug Abuse Patient Records regulations: The Federal rules restrict any use of the information to criminally investigate or prosecute any alcohol or drug abuse patient.[facility] [place]In the event this information is protected by the Federal Confidentiality of Alcohol and Drug Abuse Patient Records regulations: The Federal rules restrict any use of the information to criminally investigate or prosecute any alcohol or drug abuse patient.[facility] [place]In the event this information is protected by the Federal Confidentiality of Alcohol and Drug Abuse Patient Records regulations: The Federal rules restrict any use of the information to criminally investigate or prosecute any alcohol or drug abuse patient.[facility] [place]In the event this information is protected by the Federal Confidentiality of Alcohol and Drug Abuse Patient Records regulations: The Federal rules restrict any use of the information to criminally investigate or prosecute any alcohol or drug abuse patient.[facility] [place]In the event this information is protected by the Federal Confidentiality of Alcohol and Drug Abuse Patient Records regulations: The Federal rules restrict any use of the information to criminally investigate or prosecute any alcohol or drug abuse patient.[facility] [place]In the event this information is protected by the Federal Confidentiality of Alcohol and Drug Abuse Patient Records regulations: The Federal rules restrict any use of the information to criminally investigate or prosecute any alcohol or drug abuse patient.[facility] [place]In the event this information is protected by the Federal Confidentiality of Alcohol and Drug Abuse Patient Records regulations: The Federal rules restrict any use of the information to criminally investigate or prosecute any alcohol or drug abuse patient.[facility] [place]In the event this information is protected by the Federal Confidentiality of Alcohol and Drug Abuse Patient Records regulations: The Federal rules restrict any use of the information to criminally investigate or prosecute any alcohol or drug abuse patient.[facility] [place]In the event this information is protected by the Federal Confidentiality of Alcohol and Drug Abuse Patient Records regulations: The Federal rules restrict any use of the information to criminally investigate or prosecute any alcohol or drug abuse patient.[facility] [place]In the event this information is protected by the Federal Confidentiality of Alcohol and Drug Abuse Patient Records regulations: The Federal rules restrict any use of the information to criminally investigate or prosecute any alcohol or drug abuse patient.[facility] [place]In the event this information is protected by the Federal Confidentiality of Alcohol and Drug Abuse Patient Records regulations: The Federal rules restrict any use of the information to criminally investigate or prosecute any alcohol or drug abuse patient.[facility] [place]In the event this information is protected by the Federal Confidentiality of Alcohol and Drug Abuse Patient Records regulations: The Federal rules restrict any use of the information to criminally investigate or prosecute any alcohol or drug abuse patient.[facility] [place]In the event this information is protected by the Federal Confidentiality of Alcohol and Drug Abuse Patient Records regulations: The Federal rules restrict any use of the information to criminally investigate or prosecute any alcohol or drug abuse patient.[facility] [place]In the event this information is protected by the Federal Confidentiality of Alcohol and Drug Abuse Patient Records regulations: The Federal rules restrict any use of the information to criminally investigate or prosecute any alcohol or drug abuse patient.[facility] [place]In the event this information is protected by the Federal Confidentiality of Alcohol and Drug Abuse Patient Records regulations: The Federal rules restrict any use of the information to criminally investigate or prosecute any alcohol or drug abuse patient.[facility] [place]In the event this information is protected by the Federal Confidentiality of Alcohol and Drug Abuse Patient Records regulations: The Federal rules restrict any use of the information to criminally investigate or prosecute any alcohol or drug abuse patient.[facility] [place]In the event this information is protected by the Federal Confidentiality of Alcohol and Drug Abuse Patient Records regulations: The Federal rules restrict any use of the information to criminally investigate or prosecute any alcohol or drug abuse patient.[facility] [place]In the event this information is protected by the Federal Confidentiality of Alcohol and Drug Abuse Patient Records regulations: The Federal rules restrict any use of the information to criminally investigate or prosecute any alcohol or drug abuse patient.[facility] [place]In the event this information is protected by the Federal Confidentiality of Alcohol and Drug Abuse Patient Records regulations: The Federal rules restrict any use of the information to criminally investigate or prosecute any alcohol or drug abuse patient.[facility] [place]In the event this information is protected by the Federal Confidentiality of Alcohol and Drug Abuse Patient Records regulations: The Federal rules restrict any use of the information to criminally investigate or prosecute any alcohol or drug abuse patient.[facility] [place]In the event this information is protected by the Federal Confidentiality of Alcohol and Drug Abuse Patient Records regulations: The Federal rules restrict any use of the information to criminally investigate or prosecute any alcohol or drug abuse patient.[facility] [place]In the event this information is protected by the Federal Confidentiality of Alcohol and Drug Abuse Patient Records regulations: The Federal rules restrict any use of the information to criminally investigate or prosecute any alcohol or drug abuse patient.[facility] [place]In the event this information is protected by the Federal Confidentiality of Alcohol and Drug Abuse Patient Records regulations: The Federal rules restrict any use of the information to criminally investigate or prosecute any alcohol or drug abuse patient.[facility] [place]In the event this information is protected by the Federal Confidentiality of Alcohol and Drug Abuse Patient Records regulations: The Federal rules restrict any use of the information to criminally investigate or prosecute any alcohol or drug abuse patient.[facility] [place]In the event this information is protected by the Federal Confidentiality of Alcohol and Drug Abuse Patient Records regulations: The Federal rules restrict any use of the information to criminally investigate or prosecute any alcohol or drug abuse patient.[facility] [place]In the event this information is protected by the Federal Confidentiality of Alcohol and Drug Abuse Patient Records regulations: The Federal rules restrict any use of the information to criminally investigate or prosecute any alcohol or drug abuse patient.[facility] [place]In the event this information is protected by the Federal Confidentiality of Alcohol and Drug Abuse Patient Records regulations: The Federal rules restrict any use of the information to criminally investigate or prosecute any alcohol or drug abuse patient.[facility] [place]In the event this information is protected by the Federal Confidentiality of Alcohol and Drug Abuse Patient Records regulations: The Federal rules restrict any use of the information to criminally investigate or prosecute any alcohol or drug abuse patient.[facility] [place]In the event this information is protected by the Federal Confidentiality of Alcohol and Drug Abuse Patient Records regulations: The Federal rules restrict any use of the information to criminally investigate or prosecute any alcohol or drug abuse patient.[facility] [place]In the event this information is protected by the Federal Confidentiality of Alcohol and Drug Abuse Patient Records regulations: The Federal rules restrict any use of the information to criminally investigate or prosecute any alcohol or drug abuse patient.[facility] [place]In the event this information is protected by the Federal Confidentiality of Alcohol and Drug Abuse Patient Records regulations: The Federal rules restrict any use of the information to criminally investigate or prosecute any alcohol or drug abuse patient.[facility] [place]In the event this information is protected by the Federal Confidentiality of Alcohol and Drug Abuse Patient Records regulations: The Federal rules restrict any use of the information to criminally investigate or prosecute any alcohol or drug abuse patient.[facility] [place]In the event this information is protected by the Federal Confidentiality of Alcohol and Drug Abuse Patient Records regulations: The Federal rules restrict any use of the information to criminally investigate or prosecute any alcohol or drug abuse patient.[facility] [place]In the event this information is protected by the Federal Confidentiality of Alcohol and Drug Abuse Patient Records regulations: The Federal rules restrict any use of the information to criminally investigate or prosecute any alcohol or drug abuse patient.[facility] [place]In the event this information is protected by the Federal Confidentiality of Alcohol and Drug Abuse Patient Records regulations: The Federal rules restrict any use of the information to criminally investigate or prosecute any alcohol or drug abuse patient.[facility] [place]In the event this information is protected by the Federal Confidentiality of Alcohol and Drug Abuse Patient Records regulations: The Federal rules restrict any use of the information to criminally investigate or prosecute any alcohol or drug abuse patient.[facility] [place]In the event this information is protected by the Federal Confidentiality of Alcohol and Drug Abuse Patient Records regulations: The Federal rules restrict any use of the information to criminally investigate or prosecute any alcohol or drug abuse patient.[facility] [place]In the event this information is protected by the Federal Confidentiality of Alcohol and Drug Abuse Patient Records regulations: The Federal rules restrict any use of the information to criminally investigate or prosecute any alcohol or drug abuse patient.[facility] [place]In the event this information is protected by the Federal Confidentiality of Alcohol and Drug Abuse Patient Records regulations: The Federal rules restrict any use of the information to criminally investigate or prosecute any alcohol or drug abuse patient.[facility] [place]In the event this information is protected by the Federal Confidentiality of Alcohol and Drug Abuse Patient Records regulations: The Federal rules restrict any use of the information to criminally investigate or prosecute any alcohol or drug abuse patient.[facility] [place]In the event this information is protected by the Federal Confidentiality of Alcohol and Drug Abuse Patient Records regulations: The Federal rules restrict any use of the information to criminally investigate or prosecute any alcohol or drug abuse patient.[facility] [place]In the event this information is protected by the Federal Confidentiality of Alcohol and Drug Abuse Patient Records regulations: The Federal rules restrict any use of the information to criminally investigate or prosecute any alcohol or drug abuse patient.[facility] [place]In the event this information is protected by the Federal Confidentiality of Alcohol and Drug Abuse Patient Records regulations: The Federal rules restrict any use of the information to criminally investigate or prosecute any alcohol or drug abuse patient.[facility] [place]In the event this information is protected by the Federal Confidentiality of Alcohol and Drug Abuse Patient Records regulations: The Federal rules restrict any use of the information to criminally investigate or prosecute any alcohol or drug abuse patient.[facility] [place]In the event this information is protected by the Federal Confidentiality of Alcohol and Drug Abuse Patient Records regulations: The Federal rules restrict any use of the information to criminally investigate or prosecute any alcohol or drug abuse patient.[facility] [place]In the event this information is protected by the Federal Confidentiality of Alcohol and Drug Abuse Patient Records regulations: The Federal rules restrict any use of the information to criminally investigate or prosecute any alcohol or drug abuse patient.[facility] [place]In the event this information is protected by the Federal Confidentiality of Alcohol and Drug Abuse Patient Records regulations: The Federal rules restrict any use of the information to criminally investigate or prosecute any alcohol or drug abuse patient.[facility] [place]In the event this information is protected by the Federal Confidentiality of Alcohol and Drug Abuse Patient Records regulations: The Federal rules restrict any use of the information to criminally investigate or prosecute any alcohol or drug abuse patient.[facility] [place]In the event this information is protected by the Federal Confidentiality of Alcohol and Drug Abuse Patient Records regulations: The Federal rules restrict any use of the information to criminally investigate or prosecute any alcohol or drug abuse patient.[facility] [place]In the event this information is protected by the Federal Confidentiality of Alcohol and Drug Abuse Patient Records regulations: The Federal rules restrict any use of the information to criminally investigate or prosecute any alcohol or drug abuse patient.[facility] [place]In the event this information is protected by the Federal Confidentiality of Alcohol and Drug Abuse Patient Records regulations: The Federal rules restrict any use of the information to criminally investigate or prosecute any alcohol or drug abuse patient.[facility] [place]In the event this information is protected by the Federal Confidentiality of Alcohol and Drug Abuse Patient Records regulations: The Federal rules restrict any use of the information to criminally investigate or prosecute any alcohol or drug abuse patient.[facility] [place]In the event this information is protected by the Federal Confidentiality of Alcohol and Drug Abuse Patient Records regulations: The Federal rules restrict any use of the information to criminally investigate or prosecute any alcohol or drug abuse patient.[facility] [place]In the event this information is protected by the Federal Confidentiality of Alcohol and Drug Abuse Patient Records regulations: The Federal rules restrict any use of the information to criminally investigate or prosecute any alcohol or drug abuse patient.[facility] [place]In the event this information is protected by the Federal Confidentiality of Alcohol and Drug Abuse Patient Records regulations: The Federal rules restrict any use of the information to criminally investigate or prosecute any alcohol or drug abuse patient.[facility] [place]In the event this information is protected by the Federal Confidentiality of Alcohol and Drug Abuse Patient Records regulations: The Federal rules restrict any use of the information to criminally investigate or prosecute any alcohol or drug abuse patient.[facility] [place]In the event this information is protected by the Federal Confidentiality of Alcohol and Drug Abuse Patient Records regulations: The Federal rules restrict any use of the information to criminally investigate or prosecute any alcohol or drug abuse patient.[facility] [place]In the event this information is protected by the Federal Confidentiality of Alcohol and Drug Abuse Patient Records regulations: The Federal rules restrict any use of the information to criminally investigate or prosecute any alcohol or drug abuse patient.[facility] [place]In the event this information is protected by the Federal Confidentiality of Alcohol and Drug Abuse Patient Records regulations: The Federal rules restrict any use of the information to criminally investigate or prosecute any alcohol or drug abuse patient.[facility] [place]In the event this information is protected by the Federal Confidentiality of Alcohol and Drug Abuse Patient Records regulations: The Federal rules restrict any use of the information to criminally investigate or prosecute any alcohol or drug abuse patient.[facility] [place]In the event this information is protected by the Federal Confidentiality of Alcohol and Drug Abuse Patient Records regulations: The Federal rules restrict any use of the information to criminally investigate or prosecute any alcohol or drug abuse patient.[facility] [place]In the event this information is protected by the Federal Confidentiality of Alcohol and Drug Abuse Patient Records regulations: The Federal rules restrict any use of the information to criminally investigate or prosecute any alcohol or drug abuse patient.[facility] [place]In the event this information is protected by the Federal Confidentiality of Alcohol and Drug Abuse Patient Records regulations: The Federal rules restrict any use of the information to criminally investigate or prosecute any alcohol or drug abuse patient.[facility] [place]In the event this information is protected by the Federal Confidentiality of Alcohol and Drug Abuse Patient Records regulations: The Federal rules restrict any use of the information to criminally investigate or prosecute any alcohol or drug abuse patient.[facility] [place]In the event this information is protected by the Federal Confidentiality of Alcohol and Drug Abuse Patient Records regulations: The Federal rules restrict any use of the information to criminally investigate or prosecute any alcohol or drug abuse patient.[facility] [place]In the event this information is protected by the Federal Confidentiality of Alcohol and Drug Abuse Patient Records regulations: The Federal rules restrict any use of the information to criminally investigate or prosecute any alcohol or drug abuse patient.[facility] [place]In the event this information is protected by the Federal Confidentiality of Alcohol and Drug Abuse Patient Records regulations: The Federal rules restrict any use of the information to criminally investigate or prosecute any alcohol or drug abuse patient.[facility] [place]In the event this information is protected by the Federal Confidentiality of Alcohol and Drug Abuse Patient Records regulations: The Federal rules restrict any use of the information to criminally investigate or prosecute any alcohol or drug abuse patient.[facility] [place]In the event this information is protected by the Federal Confidentiality of Alcohol and Drug Abuse Patient Records regulations: The Federal rules restrict any use of the information to criminally investigate or prosecute any alcohol or drug abuse patient.[facility] [place]In the event this information is protected by the Federal Confidentiality of Alcohol and Drug Abuse Patient Records regulations: The Federal rules restrict any use of the information to criminally investigate or prosecute any alcohol or drug abuse patient.[facility] [place]In the event this information is protected by the Federal Confidentiality of Alcohol and Drug Abuse Patient Records regulations: The Federal rules restrict any use of the information to criminally investigate or prosecute any alcohol or drug abuse patient.[facility] [place]In the event this information is protected by the Federal Confidentiality of Alcohol and Drug Abuse Patient Records regulations: The Federal rules restrict any use of the information to criminally investigate or prosecute any alcohol or drug abuse patient.[facility] JacksonIn the event this information is protected by the Federal Confidentiality of Alcohol and Drug Abuse Patient Records regulations: The Federal rules restrict any use of the information to criminally investigate or prosecute any alcohol or drug abuse patient.[facility] [place]In the event this information is protected by the Federal Confidentiality of Alcohol and Drug Abuse Patient Records regulations: The Federal rules restrict any use of the information to criminally investigate or prosecute any alcohol or drug abuse patient.[facility] [place]In the event this information is protected by the Federal Confidentiality of Alcohol and Drug Abuse Patient Records regulations: The Federal rules restrict any use of the information to criminally investigate or prosecute any alcohol or drug abuse patient.[facility] [place]In the event this information is protected by the Federal Confidentiality of Alcohol and Drug Abuse Patient Records regulations: The Federal rules restrict any use of the information to criminally investigate or prosecute any alcohol or drug abuse patient.[facility] [place]In the event this information is protected by the Federal Confidentiality of Alcohol and Drug Abuse Patient Records regulations: The Federal rules restrict any use of the information to criminally investigate or prosecute any alcohol or drug abuse patient.[facility] [place]In the event this information is protected by the Federal Confidentiality of Alcohol and Drug Abuse Patient Records regulations: The Federal rules restrict any use of the information to criminally investigate or prosecute any alcohol or drug abuse patient.[facility] JacksonIn the event this information is protected by the Federal Confidentiality of Alcohol and Drug Abuse Patient Records regulations: The Federal rules restrict any use of the information to criminally investigate or prosecute any alcohol or drug abuse patient.[facility] [place]In the event this information is protected by the Federal Confidentiality of Alcohol and Drug Abuse Patient Records regulations: The Federal rules restrict any use of the information to criminally investigate or prosecute any alcohol or drug abuse patient.[facility] [place]In the event this information is protected by the Federal Confidentiality of Alcohol and Drug Abuse Patient Records regulations: The Federal rules restrict any use of the information to criminally investigate or prosecute any alcohol or drug abuse patient.[facility] [place]In the event this information is protected by the Federal Confidentiality of Alcohol and Drug Abuse Patient Records regulations: The Federal rules restrict any use of the information to criminally investigate or prosecute any alcohol or drug abuse patient.[facility] [place]In the event this information is protected by the Federal Confidentiality of Alcohol and Drug Abuse Patient Records regulations: The Federal rules restrict any use of the information to criminally investigate or prosecute any alcohol or drug abuse patient.[facility] [place]In the event this information is protected by the Federal Confidentiality of Alcohol and Drug Abuse Patient Records regulations: The Federal rules restrict any use of the information to criminally investigate or prosecute any alcohol or drug abuse patient.[facility] [place]In the event this information is protected by the Federal Confidentiality of Alcohol and Drug Abuse Patient Records regulations: The Federal rules restrict any use of the information to criminally investigate or prosecute any alcohol or drug abuse patient.[facility] [place]In the event this information is protected by the Federal Confidentiality of Alcohol and Drug Abuse Patient Records regulations: The Federal rules restrict any use of the information to criminally investigate or prosecute any alcohol or drug abuse patient.[facility] [place]In the event this information is protected by the Federal Confidentiality of Alcohol and Drug Abuse Patient Records regulations: The Federal rules restrict any use of the information to criminally investigate or prosecute any alcohol or drug abuse patient.[facility] [place]In the event this information is protected by the Federal Confidentiality of Alcohol and Drug Abuse Patient Records regulations: The Federal rules restrict any use of the information to criminally investigate or prosecute any alcohol or drug abuse patient.[facility] [place]In the event this information is protected by the Federal Confidentiality of Alcohol and Drug Abuse Patient Records regulations: The Federal rules restrict any use of the information to criminally investigate or prosecute any alcohol or drug abuse patient.[facility] [place]In the event this information is protected by the Federal Confidentiality of Alcohol and Drug Abuse Patient Records regulations: The Federal rules restrict any use of the information to criminally investigate or prosecute any alcohol or drug abuse patient.[facility] [place]In the event this information is protected by the Federal Confidentiality of Alcohol and Drug Abuse Patient Records regulations: The Federal rules restrict any use of the information to criminally investigate or prosecute any alcohol or drug abuse patient.[facility] [place]In the event this information is protected by the Federal Confidentiality of Alcohol and Drug Abuse Patient Records regulations: The Federal rules restrict any use of the information to criminally investigate or prosecute any alcohol or drug abuse patient.[facility] [place]In the event this information is protected by the Federal Confidentiality of Alcohol and Drug Abuse Patient Records regulations: The Federal rules restrict any use of the information to criminally investigate or prosecute any alcohol or drug abuse patient.[facility] [place]In the event this information is protected by the Federal Confidentiality of Alcohol and Drug Abuse Patient Records regulations: The Federal rules restrict any use of the information to criminally investigate or prosecute any alcohol or drug abuse patient.[facility] [place]In the event this information is protected by the Federal Confidentiality of Alcohol and Drug Abuse Patient Records regulations: The Federal rules restrict any use of the information to criminally investigate or prosecute any alcohol or drug abuse patient.[facility] [place]In the event this information is protected by the Federal Confidentiality of Alcohol and Drug Abuse Patient Records regulations: The Federal rules restrict any use of the information to criminally investigate or prosecute any alcohol or drug abuse patient.[facility] [place]In the event this information is protected by the Federal Confidentiality of Alcohol and Drug Abuse Patient Records regulations: The Federal rules restrict any use of the information to criminally investigate or prosecute any alcohol or drug abuse patient.[facility] [place]In the event this information is protected by the Federal Confidentiality of Alcohol and Drug Abuse Patient Records regulations: The Federal rules restrict any use of the information to criminally investigate or prosecute any alcohol or drug abuse patient.[facility] [place]In the event this information is protected by the Federal Confidentiality of Alcohol and Drug Abuse Patient Records regulations: The Federal rules restrict any use of the information to criminally investigate or prosecute any alcohol or drug abuse patient.[facility] [place]In the event this information is protected by the Federal Confidentiality of Alcohol and Drug Abuse Patient Records regulations: The Federal rules restrict any use of the information to criminally investigate or prosecute any alcohol or drug abuse patient.[facility] [place]In the event this information is protected by the Federal Confidentiality of Alcohol and Drug Abuse Patient Records regulations: The Federal rules restrict any use of the information to criminally investigate or prosecute any alcohol or drug abuse patient.[facility] [place]In the event this information is protected by the Federal Confidentiality of Alcohol and Drug Abuse Patient Records regulations: The Federal rules restrict any use of the information to criminally investigate or prosecute any alcohol or drug abuse patient.[facility] [place]In the event this information is protected by the Federal Confidentiality of Alcohol and Drug Abuse Patient Records regulations: The Federal rules restrict any use of the information to criminally investigate or prosecute any alcohol or drug abuse patient.[facility] [place]In the event this information is protected by the Federal Confidentiality of Alcohol and Drug Abuse Patient Records regulations: The Federal rules restrict any use of the information to criminally investigate or prosecute any alcohol or drug abuse patient.[facility] [place]In the event this information is protected by the Federal Confidentiality of Alcohol and Drug Abuse Patient Records regulations: The Federal rules restrict any use of the information to criminally investigate or prosecute any alcohol or drug abuse patient.[facility] [place]In the event this information is protected by the Federal Confidentiality of Alcohol and Drug Abuse Patient Records regulations: The Federal rules restrict any use of the information to criminally investigate or prosecute any alcohol or drug abuse patient.[facility] [place]In the event this information is protected by the Federal Confidentiality of Alcohol and Drug Abuse Patient Records regulations: The Federal rules restrict any use of the information to criminally investigate or prosecute any alcohol or drug abuse patient.[facility] [place]In the event this information is protected by the Federal Confidentiality of Alcohol and Drug Abuse Patient Records regulations: The Federal rules restrict any use of the information to criminally investigate or prosecute any alcohol or drug abuse patient.[facility] [place]In the event this information is protected by the Federal Confidentiality of Alcohol and Drug Abuse Patient Records regulations: The Federal rules restrict any use of the information to criminally investigate or prosecute any alcohol or drug abuse patient.[facility] [place]In the event this information is protected by the Federal Confidentiality of Alcohol and Drug Abuse Patient Records regulations: The Federal rules restrict any use of the information to criminally investigate or prosecute any alcohol or drug abuse patient.[facility] [place]In the event this information is protected by the Federal Confidentiality of Alcohol and Drug Abuse Patient Records regulations: The Federal rules restrict any use of the information to criminally investigate or prosecute any alcohol or drug abuse patient.[facility] [place]In the event this information is protected by the Federal Confidentiality of Alcohol and Drug Abuse Patient Records regulations: The Federal rules restrict any use of the information to criminally investigate or prosecute any alcohol or drug abuse patient.[facility] [place]In the event this information is protected by the Federal Confidentiality of Alcohol and Drug Abuse Patient Records regulations: The Federal rules restrict any use of the information to criminally investigate or prosecute any alcohol or drug abuse patient.[facility] [place]In the event this information is protected by the Federal Confidentiality of Alcohol and Drug Abuse Patient Records regulations: The Federal rules restrict any use of the information to criminally investigate or prosecute any alcohol or drug abuse patient.[facility] [place]In the event this information is protected by the Federal Confidentiality of Alcohol and Drug Abuse Patient Records regulations: The Federal rules restrict any use of the information to criminally investigate or prosecute any alcohol or drug abuse patient.[facility] [place]In the event this information is protected by the Federal Confidentiality of Alcohol and Drug Abuse Patient Records regulations: The Federal rules restrict any use of the information to criminally investigate or prosecute any alcohol or drug abuse patient.[facility] [place]In the event this information is protected by the Federal Confidentiality of Alcohol and Drug Abuse Patient Records regulations: The Federal rules restrict any use of the information to criminally investigate or prosecute any alcohol or drug abuse patient.[facility] [place]In the event this information is protected by the Federal Confidentiality of Alcohol and Drug Abuse Patient Records regulations: The Federal rules restrict any use of the information to criminally investigate or prosecute any alcohol or drug abuse patient.[facility] [place]In the event this information is protected by the Federal Confidentiality of Alcohol and Drug Abuse Patient Records regulations: The Federal rules restrict any use of the information to criminally investigate or prosecute any alcohol or drug abuse patient.[facility] [place]In the event this information is protected by the Federal Confidentiality of Alcohol and Drug Abuse Patient Records regulations: The Federal rules restrict any use of the information to criminally investigate or prosecute any alcohol or drug abuse patient.[facility] [place]In the event this information is protected by the Federal Confidentiality of Alcohol and Drug Abuse Patient Records regulations: The Federal rules restrict any use of the information to criminally investigate or prosecute any alcohol or drug abuse patient.[facility] [place]In the event this information is protected by the Federal Confidentiality of Alcohol and Drug Abuse Patient Records regulations: The Federal rules restrict any use of the information to criminally investigate or prosecute any alcohol or drug abuse patient.[facility] JacksonIn the event this information is protected by the Federal Confidentiality of Alcohol and Drug Abuse Patient Records regulations: The Federal rules restrict any use of the information to criminally investigate or prosecute any alcohol or drug abuse patient.[facility] [place] Goals (unrecognized section and content) Goals may [...] BE BASED ON THE PRIMARY CLINICAL RECORDS. [facility] [employer] [facility]. provides no warranty or guarantee of the accuracy or completeness of information in this document.
[2024-08-09 00:16] LABS: Magnesium 2.3 mg/dL (1.5-2.2)
[2024-08-09 00:24] VITALS: BP 154/92; PULSE 80; RESP 17; TEMP 36.9; O2SAT 96
[2024-08-09] MEDS: Lactulose 20 GM/30 ML UDC PO (00:35)
[2024-08-09] MEDS: metroNIDAZOLE 500 MG/100 ML BAG 100 MG IV ×3 (00:35→13:22)
[2024-08-09 01:09] LABS: Vitamin B12 912 pg/mL (180-914)
[2024-08-09 04:23] LABS: Absolute Lymphocyte Count 4.34 X10^3/uL (0.83-4.51); Absolute Neutrophil Count 8.8 X10^3/uL (2.0-7.7); Basophil# 0.12 X10^3/uL; Basophil% 0.8 % (0-1); Eosinophil# 0.04 X10^3/uL; Eosinophils% 0.3 % (0-5); Hematocrit 41.9 % (37-47); Hemoglobin 12.9 g/dL (12.0-15.0); Lymphocyte # 4.34 X10^3/ul (0.83-4.51); Lymphocyte % 29.8 % (19-41); Mean Corp Hgb Conc 30.8 g/dL (32-36); Mean Corpuscular Hgb 24.3 pg (27.0-32.0); Mean Corpuscular Volume 79.1 fL (81-99); Mean Platelet Vol. 12.1 fl (6.2-12.0); Monocyte# 1.17 X10^3/uL; NRBC Flagged by Analyzer 0 % (0-5); Neutrophil # 8.81 X10^3/uL (2.7-7.7); Neutrophil % 60.6 % (47-70); POSITIVE COUNT YES; POSITIVE MORPHOLOGY YES; Platelet Count 429 K/mm3 (150-450); RBC Distribution Width CV 22.9 % (11.6-14.6); White Blood Count 14.6 K/mm3 (4.4-11.0)
[2024-08-09 05:00] LABS: Phosphorus 3.9 mg/dL (2.7-4.5)
[2024-08-09 05:04] LABS: Differential Indicated SCAN CRITERIA MET
[2024-08-09 05:53] VITALS: BMI 29.7
[2024-08-09] MEDS: Menthol/Lanolin/Calamine/Znox 113 GM Tube 1 APPLIC TOPICAL ×2 (05:55→13:22)
[2024-08-09] MEDS: Gabapentin 600 MG Tablet PO (05:55)
[2024-08-09] MEDS: Levothyroxine 50 MCG Tablet PO (05:55)
[2024-08-09] MEDS: Nystatin Powder 15gm Bottle 1 APPLIC TOPICAL ×2 (05:56→13:22)
[2024-08-09 06:07] LABS: CPK Total, Creatine Kinase 144 U/L (24-195)
[2024-08-09 06:12] VITALS: BP 178/89; PULSE 66; RESP 16; TEMP 36.6; O2SAT 94
[2024-08-09 06:16] LABS: AST(SGOT) 94 U/L (<=31); Alanine Aminotransfer ALT/SGPT 60 U/L (<=34); Albumin, Serum 3.8 g/dL (3.5-5.0); Alkaline Phosphatase 175 U/L (35-104); Anion Gap 15 (5-15); BUN 8 mg/dL (4-19); BUN/Creat Ratio 12.1 RATIO (10-20); Calcium,Total 9.5 mg/dL (7.6-11.0); Carbon Dioxide 16.2 mmol/L (21.0-32.0); Chloride 105 mmol/L (98-108); Creatinine, Serum 0.66 mg/dL (0.70-1.20); EST Glomerular Filtration Rate 106 (>60); Estimated Creatinine Clearance 95.23 ml/min (50-250); Globulin 3.7 g/dL (2.2-4.2); Glucose 90 mg/dL (70-99); Potassium 4.2 mmol/L (3.3-5.1); Protein, Total 7.4 g/dL (5.9-8.4); Sodium Level 136 mmol/L (133-145); Total Bilirubin 0.52 mg/dL (0.00-1.30)
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
[2024-08-09] MEDS: cloNIDine HCl 0.1 MG Tablet PO (07:59)
[2024-08-09] MEDS: Lactobacillis Acidophilus 1 CAP PO ×2 (07:59→13:22)
[2024-08-09] MEDS: Famotidine 20 MG Tablet PO (08:00)
[2024-08-09] MEDS: Sertraline 50 MG Tablet 150 MG PO (08:00)
[2024-08-09] MEDS: levETIRAcetam 500 MG Tablet PO (08:01)
[2024-08-09] MEDS: Enoxaparin 40 MG/0.4 ML Syringe SC (08:01)
[2024-08-09] MEDS: buPROPion (SR) 150 MG Tablet.SA PO (08:01)
[2024-08-09] MEDS: Polyethylene Glycol 3350 17 GM PACKET PO (08:01)
[2024-08-09] MEDS: Ensure Plus High Protein 120 ML LIQUID PO ×2 (08:04→12:39)
[2024-08-09 08:28] VITALS: BP 168/90; PULSE 65; RESP 16; TEMP 36.4; O2SAT 96
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
[2024-08-09 09:11] VITALS: PULSE 90
--- NOTE | 2024-08-09 09:31 | CASEMGMT ---
Discharge Planning A list of?SNF providers including quality and resource use data and consistent with the patient's preferred geographic region, medical needs, and insurance network was created in CarePort Guide.? This list was provided to the SW. Dionne Velasquez Discharge Planning Asst.
--- NOTE | 2024-08-09 09:45 | CASEMGMT ---
RAJAN CISSE Assessment: Face to Face with pt for initial transition planning/care coordination assessment. RAJAN CISSE introduced self and role at [facility], pt voices understanding and consents to assessment. Pt is A&O x4 and answers all questions appropriately at this time. Pt lying in bed in no distress. Care providers, pharmacy, and demographics verified/updated. Admitting Dx: acute cystitis, leukocytosis and toxic encephalopathy Strata Score: 1 PCP:Rose Specialists:Denies. Pt states she has been referred to the [facility] but has not yet made the appt. Preferred Pharmacy: [facility] Insurance: [facility] Community Plan RICHARD Prescription Benefit: yes LNOK: Keshia Haro, niece; Evelyn De La Cruz, sister Living Arrangements: Pt lives with son who is autistic in a two story home with FFSU and a ramp to enter. Pt reports she can dress herself and moderately dress herself. Pt states she and her son share in the meals, her aunt does her laundry and she orders groceries online. Transportation: Pt uses her insurance for transportation. DME:bed rail, tub bench, w/c, purewick HHC/SNF: Denies hx of Spoke with therapy who recommends pt receives further therapy prior to returning home. Discussed this with pt, at first pt hesitant. She states she hasn't received therapy post ampuation and has a fear of falling. She is excited about the use of the sliding board, discussed education and training for this prior to returning home. Provided pt with a list of SNF's created by dc recreation assistant. Pt states she will review. She is aware that the SW will be back in to discuss with her. Pt states no further concerns/needs. CM to follow. Advised pt to ask CM if any further questions/concerns/needs arise, voices understanding. Pt Goal: Pt is unsure currently. Plan: EMERITA Shultz RN, CM
[2024-08-09] MEDS: 0.9% Normal Saline (1000mL) 1,000 ML 125 ML IV (09:54)
--- NOTE | 2024-08-09 10:09 | CASEMGMT ---
Addendum entered by Honey Smith 08/09/24 12:49: Pt reports that she looked at SNF list and she does not want to have inpatient skilled services at discharge, as pt feels that there isn't much I can do any ways. Pt reports that she is not willing to participate in therapy to walk on one leg with walker, as she doesn't want to risk falling. Pt reports that she wants to get her wounds healed and get a prosthesis so she can walk and is not willing to risk falling to set that process back. Pt reports that she would like a slide board and is interested in [facility] to assist in training son with slide board, therapy within wheelchair and home limitations, and additional wound care support. Pt is interested in transportation resources for wound center appointments. SW provided printables for transportation including [facility] van. Pt denies food insecurity, reports food stamp card is loaded the first of the month. Pt denies needing medic alert, utility assistance, delivered meals, or other DME. Pt reports no safety concerns. Pt reports that her son works M-F until 2:30 and shared that she is normally able to transfer to chair to make meals and use restroom. Pt denies any other needs at this time. TARIK Mccann Original Note: Social Work- Therapy updated SW on recommendations at d/c. A list of SNF providers including quality and resource use data and consistent with the patient?s preferred geographic region, medical needs, and insurance network were provided from the CarePort Guide. SW to follow up. TARIK Mccann
[2024-08-09 10:57] VITALS: BP 163/98; PULSE 88; RESP 16; TEMP 37.1; O2SAT 95
--- NOTE | 2024-08-09 12:52 | CASEMGMT ---
Discharge Planning A list of?HH providers including quality and resource use data and consistent with the patient's preferred geographic region, medical needs, and insurance network was created in CarePort Guide.? This list was provided to the RN TANNA Velasquez, Discharge Planning Asst.
--- NOTE | 2024-08-09 13:22 | CASEMGMT ---
Addendum entered by Honey Smith 08/09/24 13:58: Meghan Sarmiento [facility] declined referral. SW followed up with pt on additional choices. [facility], [facility], and [facility] are pt next choices. [facility] updated. TARIK Mccann Original Note: Social Work- SW followed up with pt on discharge planning. A list of [facility] providers including quality and resource use data and consistent with the patient?s preferred geographic region, medical needs, and insurance network were provided from the CarePort Guide. Pt selected [facility] as provider of choice. SW notified [facility] of referral request. SW verified that pt son does not drive. Pt reports that she will need transport home via insurance. Pt declined to allow pt sister or niece be contacted. Pt did provide son's contact information to be added to chart. TARIK Mccann
--- NOTE | 2024-08-09 13:39 | CASEMGMT ---
Addendum entered by Dionne Velasquez 08/09/24 13:50: [facility] Sarmiento have declined. SW updated. Dionne Velasquez DC Planning Asst. Original Note: Discharge Planning HH referral sent to [facility]. Dionne Velasquez DC Planning Asst.
--- NOTE | 2024-08-09 13:52 | PHA.DC_ITS ---
Pharmacy [facility] Counseling Pharmacy Service has performed discharge medication reconciliation and counseling for this patient. The patient's discharge medication list was reviewed for discrepancies and discrepancies were resolved. The patient was counseled on the following discharge medications and changes in medications for homegoing were reviewed. The Reason for Use, instructions for use, and potential side effects were reviewed for all new medications. The patient's questions regarding all of their medications were answered. 1. Metronidazole 500 mg PO TID x 5 days The patient was able to verbally demonstrate an understanding of their discharge medications. Medications at Discharge Home Medications gabapentin 600 mg tablet 600 mg PO TID 01/04/19 methadone 10 mg/mL oral concentrate 90 mg PO DAILY 01/04/19 sertraline 100 mg tablet 150 mg PO DAILY 01/04/19 clonidine HCl 0.1 mg tablet 0.1 mg PO Q12H bp 05/13/22 famotidine 20 mg tablet 20 mg PO DAILY gerd 05/13/22 levothyroxine 50 mcg tablet 50 mcg PO DAILY 05/13/22 bupropion HCl 100 mg tablet 150 mg PO BID 11/28/22 clonazepam 0.5 mg tablet (Klonopin) 0.5 mg PO TID PRN anxiety 11/28/22 levetiracetam PO BID 11/28/22 mirtazapine 15 mg tablet (Remeron) 7.5 mg PO QHS 11/28/22 promethazine 25 mg tablet 25 mg PO TID PRN nausea and vomiting 11/28/22 sulfamethoxazole 800 mg-trimethoprim 160 mg tablet (Bactrim DS) 1 tab PO Q12H 14 days #28 tabs 11/28/22 metronidazole 500 mg tablet 500 mg PO Q8H #15 tabs 08/09/24
--- NOTE | 2024-08-09 14:01 | CASEMGMT ---
Addendum entered by Dionne Velasquez 08/09/24 14:11: [facility] declined. Dionne Velasquez DC Planning Asst. Original Note: Discharge Planning HH referral sent to [facility] and [facility] HH. Dionne Velasquez DC Planning Asst
[2024-08-09] MEDS: Methadone 10 MG Tablet 90 MG PO (14:17)
--- NOTE | 2024-08-09 14:20 | CASEMGMT ---
Social Work- SW called [id number] and schedules transportation for 3:15-5:15. [facility] provider will call 15 min prior to arrival to allow for time to get pt to main entrance. Shirley at [facility] provided confirmation #: [id number]. Bedside nurse, RNCM, and nursing unit clerk updated on discharge timeline. TARIK Mccann
--- NOTE | 2024-08-09 14:41 | CASEMGMT ---
Addendum entered by Leeanna Harley 08/09/24 15:53: [facility] will accept pt for SOC tomorrow. Pt aware. Addendum entered by Leeanna Harley 08/09/24 15:46: Spoke with charge nurse who states what wound care is being applied. TC to Michelle at [facility], she is aware of wound care. Spoke with hospitalist, entered wound care orders at this time. Addendum entered by Leeanna Harley 08/09/24 15:42: Received tc from [facility] clinical quality compliance manager who states there is not room for much improvement with therapy and pt is declined. Questioned if slide board education would qualify for skilled need or if their therapist would like to speak to evaluating therapist. Clinical quality compliance manager questioned pt wound care. Made her aware will check on this and call back. She is aware that pt will be dc'd on atbs. Original Note: RAJAN CM into pt room, provided pt with a local in network list of DME to obtain sliding board, pt chose [facility]. Email to Sajan at [facility], they do have sliding boards. TC to therapy to confirm size. Size recommended is 28 inch. Referral sent to [facility] via [email or web address] at this time. Also confirmed with pt that she will have her meds delivered to her home by [facility]. Pt is aware that [facility] is reviewing her referral for HH but the others have declined. Pt denies further needs. She states she will set up her [facility] appt once home.
--- NOTE | 2024-08-09 15:19 | CHAPLAIN ---
Type of Pastoral Visit _x__ Initial Visit ___ Follow-up Visit ___ On-call Visit ___ General Patient Visit ___ Spiritual Assessment ___ Family Conference ___ Bereavement ___ Rapid Response ___ Code Blue ___ Other (describe below) Pastoral Care Referral From _x__ Patient ___ Family ___ Nurse ___ Physician ___ Firefighting Equipment Specialist ___ Display Coordinator ___ Other (describe below) Sacrament/Intervention _x__ Active listening ___ Anointing ___ Religion ___ Bereavement ___ Communion ___ Shonna exploration ___ ___ Life review ___ Prayer ___ Reconciliation ___ Sacrament of Sick _x__ Supportive presence ___ Wedding ___ Other (describe below) Pastoral Comments patient is resting quietly but awake; pt is offered support but she states that she is fine, is glad to rest, and that 'the contracts intern already brought in communion for me this morning';
[2024-08-09 16:29] VITALS: BP 167/93; PULSE 73; RESP 16; TEMP 36.7; O2SAT 95
--- NOTE | 2024-08-09 16:29 | CASEMGMT ---
Addendum entered by Honey Smith 08/09/24 17:18: [id number] showed up at 5:11 to transport pt after reporting that they could not transport pt. SW called physicians who reports they are 20-25 minutes out. SW cancelled physicians transport. [id number] to transport pt. TARIK Mccann Original Note: Social Work- Provide a ride is unable to transport. JOANNA set transportation through [facility]. [facility] is scheduled to transport at 5pm. Bedside nurse and assistant community director updated. Plan: Home with [facility] TARIK Mccann
--- NOTE | 2024-08-10 15:49 | CASEMGMT ---
Received vm from [facility] that pt declined services. TC to pt, pt sister Evelyn answered the phone and states we do si do'd. She states I am in the w/c now. Asked if pt was home, she stated she was not. Asked if pt was hospitalized, she stated pt was not. She did not offer any further information. Gave her RN CM phone number and asked that pt called back.
--- NOTE | 2024-08-11 16:00 | CASEMGMT ---
TC to pt and son, no answer at this time. VM left requesting returned call.
== END 2024-08-09 17:20 | disposition home health service (06) | DRG 52 ==
LOC: ED 23:49 → MS3 08-09
PROVIDERS: Admitting Provider Internal Medicine; Emergency Provider Emergency Medicine; PCP Family Medicine
DX: G92.9 Unspecified toxic encephalopathy (principal); E03.9 Hypothyroidism, unspecified; G40.909 Epilepsy, unspecified, not intractable, without status epilepticus; I10 Essential (primary) hypertension; F32.A Depression, unspecified; K21.9 Gastro-esophageal reflux disease without esophagitis; G62.9 Polyneuropathy, unspecified; K52.9 Noninfective gastroenteritis and colitis, unspecified; F17.210 Nicotine dependence, cigarettes, uncomplicated; F41.9 Anxiety disorder, unspecified; N30.00 Acute cystitis without hematuria; E66.3 Overweight; Z68.29 Body mass index [BMI] 29.0-29.9, adult; Z79.899 Other long term (current) drug therapy
CPT/HCPCS: 36415; 70450; 71045; 74177; 80053; 80307; 81001; 82077; 82550; 82607; 82746; 83036; 83605; 83735; 84100; 84443; 85025; 85610; 85730; 87040; 87086; 93005; 94668; 97162; 97166; 97802; 99285; P9612; Q9967; A4216

== ENCOUNTER 2024-09-09 13:08 | Outpatient (RCR) | payer MEDICAID, SELFPAY ==
[2024-09-09 13:35] VITALS: BP 139/93; PULSE 77; RESP 16; TEMP 37.2; BMI 29.9
--- NOTE | 2024-09-09 15:29 | WC ---
PHOTO-LEFT THIGH 09/09/24
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
== END 2024-09-16 23:59 | disposition home or self-care (01) ==
LOC: WC 13:08
PROVIDERS: PCP Family Medicine; Visit Provider Physician Assistant
DX: L97.122 Non-pressure chronic ulcer of left thigh with fat layer exposed (principal); Z89.611 Acquired absence of right leg above knee; S78.111A Complete traumatic amputation at level between right hip and knee, initial encounter; I10 Essential (primary) hypertension; F17.210 Nicotine dependence, cigarettes, uncomplicated; E03.9 Hypothyroidism, unspecified; Z79.899 Other long term (current) drug therapy; Z79.890 Hormone replacement therapy; K21.9 Gastro-esophageal reflux disease without esophagitis
CPT/HCPCS: 11042; 99213; G0463

== ENCOUNTER 2024-09-23 13:29 | Outpatient (RCR) | payer MEDICAID, SELFPAY ==
[2024-09-23 13:39] VITALS: BP 135/82; PULSE 86; RESP 18; TEMP 36.8
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
== END 2024-10-17 23:59 | disposition home or self-care (01) ==
LOC: WC 13:29
PROVIDERS: PCP Family Medicine; Visit Provider Physician Assistant
DX: L97.122 Non-pressure chronic ulcer of left thigh with fat layer exposed (principal); Z89.611 Acquired absence of right leg above knee
CPT/HCPCS: 11042